=== PATIENT | female | born 1950 | race Caucasian/White ===

== ENCOUNTER 2023-10-29 17:36 | Emergency (ER) | payer MEDICARE, SELFPAY ==
[2023-10-29 17:43] VITALS: BP 154/77; PULSE 85; RESP 18; TEMP 36.7; O2SAT 99; BMI 38.4
--- NOTE | 2023-10-29 18:18 | ED.FEMALEGU1 ---
HPI - Female Genitourinary General Chief complaint: Vaginal Bleeding Time Seen by Provider: 10/29/23 17:47 Source: patient and family Mode of arrival: walk-in Limitations: no limitations History of Present Illness HPI Narrative: patient here for evaluation of bleeding in the vaginal area. She's been feeling fine but she was treated for bronchitis infection and is currently taking doxycycline for cough she comes in today because when she urinated and she wiped there is some blood on the toilet tissue. She did not seen blood in her urine earlier today. She's not had blood in her stool. She has had a hysterectomy previously has not had any vaginal bleeding or gynecological problems since her hysterectomy. She is otherwise healthy is not on any anticoagulants. She doesn't have any back or flank pain. Related Data Allergies Allergy/AdvReac Type Severity Reaction Status Date / Time codeine AdvReac Intermediate Verified 10/29/23 17:42 PFSH PFSH Social History Smoking status: Never smoker Exam Narrative Exam Narrative: awake alert pleasant here with her . Skin is warm dry mucous membranes are moist and pink her vital signs are stable she does not appear pale or anemic. Problem focused examination examination the perineum and the presence of nurse shows on the right volar there is a tiny little skin lesion an ulceration that is slowly bleeding at this time but is clearly the source of the bleeding. The vaginal introitus is normal with no blood no evidence of rectal prolapse. The perirectal area shows no blood in the perirectal area or hemorrhoidal tissue fissures fistula are all negative. Constitutional Vital Signs, click to edit/add: Last Vital Signs Temp 98.1 F 10/29/23 17:43 Pulse 85 10/29/23 17:43 Resp 18 10/29/23 17:43 BP 154/77 H 10/29/23 17:43 Pulse Ox 99 10/29/23 17:43 Course Vital Signs Vital signs: Vital Signs Temperature 98.1 F 10/29/23 17:43 Pulse Rate 85 10/29/23 17:43 Respiratory Rate 18 10/29/23 17:43 Blood Pressure 154/77 H 10/29/23 17:43 Pulse Oximetry 99 10/29/23 17:43 Temperature 98.1 F 10/29/23 17:43 Pulse Rate 85 10/29/23 17:43 Respiratory Rate 18 12/14/23 17:43 Blood Pressure 154/77 H 10/29/23 17:43 Pulse Oximetry 99 10/29/23 17:43 MDM - Female Genitourinary MDM Narrative Medical decision making narrative: a urinalysis will be sent but clearly the source of this bleeding on the tissue is a small skin lesion on the external genitalia vulva area. The bleeding is stopped at this time. She is did not try to touch an irritated area which could precipitate more bleeding. Does not need to be cauterized or coagulated at this time. She should follow up with [facility] if this be an ongoing problem I think this would be self-limited Discharge Plan Discharge Chief Complaint: Vaginal Bleeding Clinical Impression: Vulval lesion Patient Disposition: Home, Self-Care Time of Disposition Decision: 18:30 Additional Instructions: but a soft dressing in his area, try not to Sterba. Follow-up with local gynecology Stand Alone Forms: Portal Instructions Referrals: VINAY MATTA [Primary Care Provider] - 1 week
--- NOTE | 2023-10-29 18:28 | PC.NURSE ---
assisted dr nagy with genital examination
[2023-10-29 18:48] LABS: Bilirubin Urine NEGATIVE (NEGATIVE); Blood Urine MODERATE (NEGATIVE); Clarity Urine CLEAR (CLEAR); Color Urine LT. YELLOW (YELLOW); Glucose Urine UA NEGATIVE (NEGATIVE); Ketones Urine NEGATIVE (NEGATIVE); Leukocyte Esterase Urine NEGATIVE (NEGATIVE); Nitrite Urine NEGATIVE (NEGATIVE); Protein Urine NEGATIVE (NEG/TRACE); Specific Gravity Urine 1.015 (1.005-1.025); Urine Microscopic Indicated YES; Urobilinogen Urine 0.2 EU/dL (0.2-1.0); pH Urine 5.5 (5.0-9.0)
[2023-10-29 18:58] LABS: Bacteria Urine NONE SEEN #/HPF (NONE SEEN); Cast Seen? NONE SEEN #/LPF (NONE SEEN); Crystals Seen? None Seen #/HPF (None Seen); Mucus Urine NONE SEEN (NONE SEEN); RBC Urine 0-2 #/HPF (0-2); Squamous Epithelial Cell Urine FEW #/LPF (NONE/RARE); Urine Culture Indicated NO; WBC Urine 0-2 #/HPF (NONE SEEN)
== END 2023-10-29 18:46 | disposition home or self-care (01) ==
PROVIDERS: Emergency Provider Emergency Medicine Emergency Medical Services; PCP Family Medicine
DX: N90.89 Other specified noninflammatory disorders of vulva and perineum (principal); Z90.710 Acquired absence of both cervix and uterus
CPT/HCPCS: 81001; 99283

== ENCOUNTER 2024-01-04 09:55 | Outpatient (OUT) | payer OTHER, SELFPAY ==
--- OUTSIDE RECORDS SUMMARY | 2024-01-04 10:02 | XMS_ITS | CCD ---
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 Role Phone Vinay Matta Primary Care Provider Bunting, Vinay Attending Provider VINAY MATTA R Primary Care Physician Bunting, DO Vinay Primary Care Provider Bunting, DO Vinay Attending Provider Bunting, DO Vinay Referring Provider Self, Referral Attending Provider Unavailable Bunting, DO Vinay Primary Care Provider Bunting, DO Vinay Attending Provider [phone] TROY Yusuf Emergency Provider TROY Yusuf Attending Provider [phone] [facility] Primary [facility] Provider [facility] Primary Care Provider Bunting, DO Vinay Primary Care Provider [phone] TROY Yusuf Emergency Provider TROY Yusuf Attending Provider Bunting, DO Vinay Attending Provider STARR Delcid Attending Provider [phone] Anh Delcid Unavailable Bunting, DO Vinay Primary Care Provider MD Rafael Edouard Attending Provider Bunting, DO Vinay Primary Care Provider MD Rafael Edouard Attending Provider Bunting, DO Mclean Attending Provider MD Lamin Rose Emergency Provider MD Kimberly Arteaga Admit Provider MD Kimberly Arteaga Attending Provider DO Krissy Easton Other Provider [facility] Georgina Attending Provider [phone] BUNTING, DR MCLENA Admitting Unavailable BUNTING, DR MCLEAN Attending Unavailable BUNTING, DR MCLEAN Primary Care Unavailable BUNTING, DR MCLEAN Consulting Unavailable SALAM, GOMEZ Admitting Unavailable SALAM, GOMEZ Attending Unavailable BUNTING, DR MCLEAN Primary Care Unavailable SALAM, GOMEZ Consulting Unavailable BUNTING, DR MCLEAN Admitting Unavailable BUNTING, DR MCLEAN Attending Unavailable BUNTING, DR MCLEAN Primary Care Unavailable BUNTING, DR MCLEAN Consulting Unavailable BUNTING, DR MCLEAN Admitting Unavailable BUNTING, DR MCLEAN Attending Unavailable BUNTING, DR MCLEAN Primary Care Unavailable SALAM, GOMEZ Admitting Unavailable SALAM, GOMEZ Attending Unavailable BUNTING, DR MCLEAN Primary Care Unavailable SALAM, GOMEZ Consulting Unavailable MISC, DR BERGER Admitting Unavailable MISC, DR BERGER Attending Unavailable BUNTING, DR MCLEAN Primary Care Unavailable MISC, DR BERGER Consulting Unavailable Bunting, DO Mclean Primary Care Provider [phone] Bunting, DO Mclean Attending Provider [phone] Bunting, DO Mclean Primary Care Provider Bunting, DO Mclean Attending Provider [phone] STARR Delcid Attending Provider ABHYANKAR, BELKIS Referring Unavailable RUTH, NISA Primary Care Unavailable DAKSHA BRIDGES Attending Unavailable ABHYANKAR, BELKIS Referring Unavailable RUTH, NISA Primary Care Unavailable ABHYANKAR, BELKIS Referring Unavailable RUTH, NISA Primary Care Unavailable DAKSHA BRIDGES Attending Unavailable ABHYANKAR, BELKIS Referring Unavailable RUTH, NISA Primary Care Unavailable DAKSHA BRIDGES Attending Unavailable RUTH, NISA Primary Care Unavailable RUTH, NISA Primary Care Unavailable CYRUSDAKSHA Attending Unavailable RUTH, NISA Primary Care Unavailable RUTH, NISA Primary Care Unavailable SIRI WALKERRA Referring Unavailable RUTH, NISA Primary Care Unavailable RUTH, NISA Primary Care Unavailable ABHYANKAR, BELKIS Referring Unavailable CYRUSDAKSHA M Attending Unavailable ABHYANKAR, BELKIS Referring Unavailable RUTH, NISA Primary Care Unavailable Ruth, Nisa A Attending Unavailable SALAM, Gomez Attending Unavailable SALAM, Gomez Admitting Unavailable NONE, XXXX Referring Unavailable Ruth, Nisa A Referring Unavailable Ruth, Nisa A Attending Unavailable Ruth, Nisa A Admitting Unavailable Ruth, Nisa A Referring Unavailable Ruth, Nisa A Attending Unavailable Ruth, Nisa A Admitting Unavailable Ruth, Nisa A Attending Unavailable SALAM, Gomez Attending Unavailable Bunting, Vinay Attending Unavailable Bunting, Vinay Admitting Unavailable Bunting, Vinay Primary Care Unavailable Bunting, Vinay Primary Care Unavailable Windnagel, Georgina Admitting Unavailable Windnagel, Georgina Attending Unavailable Bunting, Vinay Consulting Unavailable Hill, Trudy C Admitting Unavailable Hill, Trudy C Attending Unavailable Bunting, Vinay Referring Unavailable Bunting, Vinay Primary Care Unavailable Bunting, Vinay Primary Care Unavailable Edouard, Rafael Attending Unavailable Eduoard, Rafael Admitting Unavailable Arteaga, Kimberly Admitting Unavailable Arteaga, Kimberly Attending Unavailable Bunting, Vinay Primary Care Unavailable Krissy Easton Consulting Unavailable Bunting, Vinay Primary Care Unavailable Bunting, Vinay Attending Unavailable Bunting, Vinay Admitting Unavailable Bunting, Vinay Primary Care Unavailable Delcid, Anh Admitting Unavailable Delcid, Anh Attending Unavailable Unavailable Unavailable Unavailable Allergies Allergy Classification Reported Allergen(s) Allergy Type Date of Onset Reaction(s) Facility (20 sources) Acetaminophen / Codeine; Translations: [acetaminophen-co deine] Drug Allergy 2 Upset stomach (finding), Other: See Comments [facility] Comment on above: pt states she is unw illing to try even plain tylenol after this experience even though she states she took tylenol prior to this and had no problems (20 sources) Codeine; Translations: [codeine] Drug Allergy 7 Other: See Comments [facility] (3 sources) Acetaminophen / Codeine; Translations: [Tylenol with Codeine #3] Drug Allergy Unknown [facility] Repository (1 source) traMADol Drug Allergy [facility] (1 source) Acetaminophen / Codeine; Translations: [ACETAMINOPHEN-CO DEINE] Drug Allergy 2 [facility] Repository (1 source) Acetaminophen Drug Allergy 3 [facility] Repository Medications Current Medications Medication Drug Class(es) Dates Sig (Normalized) Sig (Original) allopurinol 100 mg oral tablet (20 sources) Xanthine Oxidase Inhibitor Start: 01-21-2022 take 1 tablet by mouth twice daily allopurinol 100 mg Tab 100 mg = 1 tab(s), Oral, BID, # 60 tab(s), Refills(s) 0, Pharmacy: [id number], 165, cm, 01/19/22 22:12:00 EST, Height/Length Dosing, 90, kg, 01/19/22 22:12:00 EST, Weight Dosing Start Date: 01/21/22 Status: Ordered take 1 tablet by mouth once elizabeth y allopurinol (ZYLOPRIM) 100 mg tablet Take 100 mg by mouth once daily. 0 Active Comment on above: Take 100 mg by mouth once daily. ascorbic acid 500 mg oral tablet (15 sources) Vitamin C Start: 01-20-2022 take 1 tablet by mouth once daily ascorbic acid 500 mg Tab 500 mg = 1 tab(s), Oral, Daily, Prophylaxis Start Date: 01/20/22 Status: Ordered Vitamin C Active aspirin 81 mg delayed release oral tablet (20 sources) Platelet Aggregation Inhibitor, Nonsteroidal Anti-inflammatory Drug Start: 01-21-2022 take 1 tablet by mouth once daily aspirin 81 mg Oral EC Tab 81 mg = 1 tab(s), Oral, Daily, # 30 tab(s), Refills(s) 0, Pharmacy: [id number], 165, cm, 01/19/22 22:12:00 EST, Height/Length Dosing, 90, kg, 01/19/22 22:12:00 EST, Weight Dosing Start Date: 01/21/22 Status: Ordered Start: 01-21-2022 take 81 mg by mouth once daily Aspirin Active 81 MG PO Daily March 10, 2023 11:00pm Comment on above: Take 81 mg by mouth once daily. atenolol 50 mg oral tablet (20 sources) beta-Adrenergic Mervat Start: 12-26-2017 take 1 tablet by mouth once daily atenolol 50 mg Tab 50 mg = 1 tab(s), Oral, Daily, # 30 tab(s), Refills(s) 0, Pharmacy: [id number], 165, cm, 01/19/22 22:12:00 EST, Height/Length Dosing, 90, kg, 01/19/22 22:12:00 EST, Weight Dosing Start Date: 01/21/22 Status: Ordered Atenolol Active Comment on above: Take 50 mg by mouth once daily. atorvastatin 20 mg oral tablet (20 sources) HMG-CoA Reductase Inhibitor Start: 8 take 1 tablet by mouth at bedtime atorvastatin 20 mg Tab 20 mg = 1 tab(s), Oral, Bedtime, Refills(s) 0, High cholesterol Start Date: 01/21/22 Status: Ordered Atorvastatin Pedrito cium Active Comment on above: Take 20 mg by mouth once daily. Biotin (2 sources) Biotin Active cephalexin 500 mg oral capsule (13 sources) Cephalosporin Antibacterial Start: take 500 mg by mouth twice daily Cephalexin Active 500 MG PO Twice daily 08 20March 12, 2023 11:00pm Start: 07-22-2022 End: 12-29-2022 take 500 mg by mouth every eight hours Cephalexin Discontinued 500 MG PO Q8H 05 06July 21, 2022 11:00pm December 29, 2022 1:20pm cholecalciferol 0.025 mg oral tablet (20 sources) Vitamin D Start: 01-20-2022 take 1 tablet by mouth once daily cholecalciferol 1000 intl units oral tablet 25 mcg = 1 tab(s), Oral, Daily, Prophylaxis Start Date: 01/20/22 Status: Ordered Start: 01-20-2022 take 1 tablet by oleg once daily cholecalciferol 1000 intl units oral tablet 25 mcg = 1 tab(s), Oral, Daily Start Date: 01/20/22 Status: Ordered Comment on above: Take 1,000 Units by mouth once daily. ergocalciferol 0.2 mg/ml oral solution (4 sources) Provitamin D2 Compound Start: 03-11-20 take 200 ug by mouth once daily Ergocalciferol (Vitamin D2) Active 200 MCG PO Daily March 10, 2023 11:00pm furosemide 20 mg oral tablet (20 sources) Loop Diuretic Start: 09-02-20 furosemide 20 mg Tab Refills(s) 0 Start Date: 09/19/22 Status: Ordered Comment on above: Take 20 mg by mouth once daily. gabapentin 300 mg oral capsule (20 sources) Anti-epileptic Agent Start: 01-22-20 take 3 capsules by mouth at bedtime gabapentin 300 mg Cap 900 mg = 3 cap(s), Oral, Bedtime, Refills(s) 0, Neuropathy Start Date: 01/21/22 Status: Ordered Start: 12-26-2017 take 900 mg by mouth at bedtim e Gabapentin Active 900 MG PO Bedtime December 26, 2017 12:00am Start: 12-26-2017 take 300 mg by mouth three times daily Gabapentin Active 300 MG PO Three times daily December 26, 2017 12:00am take 1 capsule by mo ut once daily at bedtime gabapentin (NEURONTIN) 300 mg capsule Take 300 mg by mouth daily at bedtime. 0 Active Gabapentin Activ e Comment on above: Take 300 mg by mouth daily at bedtime. glimepiride 2 mg oral tablet (20 sources) Sulfonylurea Start: 8 take 1 tablet by mouth twice daily glimepiride 2 mg Tab 2 mg = 1 tab(s), Oral, BID, Refills(s) 0, Blood glucose Start Date: 01/20/22 Status: Ordered Start: 12-26-2017 take 2 mg by mouth o nce daily in the morning Glimepiride Active 2 MG PO Every morning December 26, 2017 12:00am Glimepiride Acti ve Comment on above: Take 2 mg by mouth d aily with breakfast. hydroCHLOROthiazide 12.5 mg / lisinopril 20 mg oral tablet (20 sources) Thiazide Diuretic, Angiotensin Converting Enzyme Inhibitor Start: 12-26-2017 hydrochlorothiazide -lisinopril 12.5 mg-20 mg Tab 1 tab(s), Oral, Daily, 30 tab(s), Refill(s) 0, [id number], 165, cm, 01/19/22 22:12:00 EST, Height/Length Dosing, 90, kg, 01/19/22 22:12:00 EST, Weight Dosing Start Date: 01/21/22 Status: Ordered take 10-12.5 mg by mouth once li sinopril-hydroCHLOROthiazide (PRINZIDE,ZESTORETIC) 10-12.5 mg per tablet Take 1 tablet by mouth once daily. 0 Active Lisinopril-hydro CHLOROthiazide Active Comment on above: Take 1 tablet by oleg th once daily. metFORMIN hydrochloride 1000 mg oral tablet (20 sources) Biguanide Start: 12-26-2017 metformin 1000 mg oral tablet 1,000 mg = 1 tab(s), Oral, BIDWM, Blood glucose Start Date: 01/20/22 Status: Ordered take 1000 mg by mouth once daily metformin HCl (METFORMIN ORAL) Take 1,000 mg by mouth once daily. 0 Active metFORMIN HCl Ac tive Comment on above: Take 1,000 mg by oleg th once daily. omeprazole 20 mg delayed release oral capsule (20 sources) Proton Pump Inhibitor Start: 09-19-2022 omeprazole 20 mg Cap-DR Refills(s) 0 Start Date: 09/19/22 Status: Ordered Start: 12-26-2017 take 1 tablet by oleg th once daily Omeprazole Magnesium (Prilosec Otc) 20 mg Tablet,Delayed Release (Dr/Ec) Active 20 MG PO Daily December 26, 2017 12:00am PriLOSEC Active Comment on above: Take 20 mg by mouth once daily. Omeprazole Magnesium (Prilosec Otc) 20 mg Tablet,Delayed Release (Dr/Ec) (5 sources) Start: 12-26-2017 take 1 tablet by mouth once daily Omeprazole Magnesium (Prilosec Otc) 20 mg Tablet,Delayed Release (Dr/Ec) Active 20 MG PO Daily December 26, 2017 1:00am Start: 12-26-2017 take 1 tablet by oleg th once daily Omeprazole Magnesium (Prilosec Otc) 20 mg Tablet,Delayed Release (Dr/Ec) Active 20 MG PO Daily December 26, 2017 12:00am (2 sources) Active rOPINIRole 2 mg oral tablet (20 sources) Nonergot Dopamine Agonist Start: 12-29-2022 take 2 mg by mouth once daily at bedtime Ropinirole Active 2 MG PO Daily at bedtime December 29, 2022 12:00am Start: 01-21-2022 take [address] [facility] at bedtime ropinirole 0.5 mg Tab 1 mg = 2 tab(s), Oral, Bedtime, Refills(s) 0, Other (see comment) Start Date: 01/21/22 Status: Ordered take 1 tablet by oleg twice daily rOPINIRole (REQUIP) 0.5 mg tablet Take 0.5 mg by mouth twice daily. 0 Active take 1 tablet by oleg once daily at bedtime rOPINIRole (REQUIP) 0.5 mg tablet Take 0.5 mg by mouth daily at bedtime. 0 Active Comment on above: Take 0.5 mg by mouth daily at bedtime. Take 0.5 mg by mouth twice daily. SITagliptin 50 mg oral tablet (3 sources) Dipeptidyl Peptidase 4 Inhibitor Start: 12-07-2023 Januvia 50 mg Tab Refills(s) 0 Start Date: 12/07/23 Status: Ordered Start: 09-15-2023 take 1 tablet by mouth once JA JUDI 50 mg tablet Take 1 tablet by mouth every afternoon. 0 09/15/2023 Active Januvia 50 MG as directed Orally Active Comment on above: Take 1 tablet by oleg every afternoon. vitamin B12 (11 sources) Vitamin B12 Start: 04-15-2023 Vitamin B12 Refills(s) 0 Start Date: 04/15/23 Status: Ordered Start: 03-13-2023 take 1 tablet by oleg once daily Cyanocobalamin (Vitamin B-12) (Vitamin B-12) 1,000 mcg Tablet Active 1000 MCG PO Daily March 12, 2023 11:00pm Start: 03-11-2023 End: 03-13-2023 take 1 tablet by mouth once daily Cyanocobalamin (Vitamin B-12) (Vitamin B-12) 50 mcg Tablet Discontinued 50 MCG PO Daily March 10, 2023 11:00pm March 13, 2023 8:52am Vitamin D3 (2 sources) Vitamin D3 Activ e Completed/Discontinued Medications Medication Drug Class(es) Dates Sig (Normalized) Sig (Original) [id number] 200 actuat albuterol 0.09 mg/actuat metered dose inhaler (12 sources) beta2-Adrenergic Agonist Start: 10-12-2023 take 2 puff(s) by mouth every four hours as needed for cough albuterol HFA (PROVENTIL HFA, VENTOLIN HFA) 90 mcg/actuation inhaler INHALE 2 PUFFS BY MOUTH EVERY 4 HOURS NEEDED FOR COUGH 0 10/12/2023 Active Start: 12-26-2017 take 1 puff(s) by in halation every four to six hours Albuterol Sulfate Active 1 PUFF INHALATION EVERY 4-6 HOURS December 26, 2017 2:57pm Start: 12-26-2017 End: 03-11-2023 take 1 puff(s) by inhalation every four to six hours Albuterol Sulfate Discontinued 1 PUFF INHALATION EVERY 4-6 HOURS December 26, 2017 12:00am March 11, 2023 4:40pm Start: 12-26-2017 End: 03-11-2023 take 1 puff(s) by inhalation every four to six hours Albuterol Sulfate Discontinued 1 PUFF INHALATION EVERY 4-6 HOURS December 26, 2017 1:00am March 11, 2023 5:40pm Start: 12-26-2017 take 1 puff(s) by in halation every four to six hours Albuterol Sulfate Active 1 PUFF INHALATION EVERY 4-6 HOURS December 26, 2017 12:00am Start: 12-26-2017 take 1 puff(s) by in halation every four to six hours Albuterol Sulfate Active 1 PUFF INHALATION EVERY 4-6 HOURS December 26, 2017 12:00am Comment on above: INHALE 2 PUFFS BY MO UTH EVERY 4 HOURS NEEDED FOR COUGH amoxicillin 875 mg / clavulanate 125 mg oral tablet (2 sources) Penicillin-class Antibacterial Start: 8 take 1 tablet by mouth every twelve hours Amoxicillin-Pot Clavulanate 875-125 MG 1 tablet Orally every 12 hrs for 10 day(s) Feb, Not-Taking ASCORBIC ACID, VITAMIN C, ORAL (20 sources) take 500 mg by mouth once daily ASCORBIC ACID, VITAMIN C, ORAL Take 500 mg by mouth once daily. 0 Active Comment on above: Take 500 mg by mouth once daily. benzonatate 200 mg oral capsule (11 sources) Non-narcotic Antitussive Start: 8 End: 3 take 200 mg by mouth twice daily Benzonatate Discontinued 200 MG PO Twice daily December 26, 2017 12:00am December 29, 2022 1:19pm calcium carbonate 250 mg / magnesium carbonate 300 mg oral tablet (9 sources) Start: 3 Calcium Carb-Magnesium Carb 250-300 mg tab Take by mouth. 0 02/04/2023 Active Start: 02-04-2023 MagneBind 300 oral tablet 1 tab(s), Oral, Daily, 150 tab(s), Refill(s) 0, [facility], 160, cm, 12/24/22 10:14:00 EST, Height/Length Dosing, 97.2, kg, 12/24/22 10:14:00 EST, Weight Dosing Start Date: 02/04/23 Status: Ordered Comment on above: Take by mouth. cefdinir 300 mg oral capsule (13 sources) Cephalosporin Antibacterial Start: 8 End: 3 take 300 mg by mouth every twelve hours Cefdinir Discontinued 300 MG PO Q12H December 26, 2017 12:00am December 29, 2022 1:20pm Cefdinir Not-Korey ing codeine phosphate 2 mg/ml / promethazine hydrochloride 1.25 mg/ml oral solution (11 sources) Opioid Agonist, Phenothiazine Start: 12-26-2017 End: 12-29-2022 take 1 mL by mouth every four hours Promethazine-Codeine Discontinued 5 ML PO Q4H 120 December 26, 2017 12:00am December 29, 2022 1:21pm diclofenac sodium 75 mg delayed release oral tablet (20 sources) Nonsteroidal Anti-inflammatory Drug Start: 12-29-2022 End: 03-13-2023 take 75 mg by mouth twice daily Diclofenac Sodium Discontinued 75 MG PO Twice daily December 29, 2022 12:00am March 13, 2023 8:47am Start: 04-23-2022 take 1 tablet by oleg th once daily diclofenac sodium 75 mg Oral EC Tab 75 mg = 1 tab(s), Oral, Daily, Refills(s) 0, Pain Start Date: 04/23/22 Status: Ordered Start: 04-23-2022 diclofenac sod ium 75 mg Oral EC Tab Refills(s) 0 Start Date: 04/23/22 Status: Ordered Comment on above: Take 75 mg by mouth once daily. doxycycline monohydrate 100 mg oral capsule (11 sources) Tetracycline-class Drug Start: 8 End: 3 take 100 mg by mouth twice daily Doxycycline Monohydrate Discontinued 100 MG PO Twice daily December 26, 2017 12:00am December 29, 2022 1:20pm ferrous sulfate 325 mg oral tablet (3 sources) End: 3 ferrous sulfate 325 mg (65 mg iron) tablet Take 325 mg by mouth. 0 07/24/2023 Discontinued Comment on above: Take 325 mg by mouth . fluticasone propionate 0.05 mg/actuat metered dose nasal spray (13 sources) Corticosteroid Start: 8 take 1 spray(s) nasal route once daily Fluticasone Propionate 50 MCG/ACT 1 spray in each nostril Nasally Once a day for 21 days Feb, Not-Taking Start: 12-26-2017 End: 12-29-2022 Fluticasone Propionate Disco ntinued 1 SPRAY INTRANASAL Daily December 26, 2017 12:00am December 29, 2022 1:20pm Honey (Medihoney (Honey)) 10 0 % paste (5 sources) Start: 12-29-2022 End: 03-11-2023 Honey (Medihoney (Honey)) 10 0 % paste Discontinued 1 APPLIC TOPICAL Twice daily December 29, 2022 12:00am March 11, 2023 4:44pm Start: 12-29-2022 End: 03-11-2023 Honey (Medihoney (Honey)) 10 0 % paste Discontinued 1 APPLIC TOPICAL Twice daily December 29, 2022 1:00am March 11, 2023 5:44pm Start: 12-29-2022 Honey (Medihon ey (Honey)) 100 % paste Active 1 APPLIC TOPICAL Twice daily December 29, 2022 12:00am Magnesium Oxide (8 sources) Start: 02-03-2023 take 1 tablet by oleg th once daily MAGNESIUM OXIDE ORAL Take 1 tablet by mouth once daily. 0 02/03/2023 Active Start: 02-03-2023 take 1 tablet by oleg th twice daily magnesium oxide (MAG-OX) 400 mg (241.3 mg magnesium) tablet Take 1 tablet by mouth twice daily. 0 02/03/2023 Active Comment on above: Take 1 tablet by oleg th twice daily. Take 1 tablet by oleg th once daily. JEN ADAN, 100 % pste (10 sources) Start: 12-01-2022 JEN ADAN, 100 % pste APPLY A THIN LAYER TWICE DAILY 0 12/01/2022 Active Comment on above: APPLY A THIN LAYER T WICE DAILY predniSONE 20 mg oral tablet (1 source) Start: 10-20-2023 take 2 tablets by mouth once daily, then take 1 tablet by mouth once daily, then take 0.5 tablet by mouth once daily predniSONE (DELTASONE) 20 mg tablet TAKE 2 TABLETS BY MOUTH DAILY FOR 2 DAYS THEN TAKE 1 TABLET BY MOUTH DAILY FOR 2 DAYS THEN TAKE ONE-HALF TABLET BY MOUTH DAILY FOR 2 DAYS 0 10/20/2023 Active Comment on above: TAKE 2 TABLETS BY MO UTH DAILY FOR 2 DAYS THEN TAKE 1 TABLET BY MOUTH DAILY FOR 2 DAYS THEN TAKE ONE-HALF TABLET BY MOUTH DAILY FOR 2 DAYS Vitamin D (2 sources) Vitamin D Not-Ta celine Problems Active Problems Problem Classification Problem Date Documented Da te Episodic/Chronic Acute and unspecified renal failure (10 sources) Injury of kidney; Translations: [Acute kidney failure, unspecified] Onset: 3 07-22-2022 Episodic Acute bronchitis (11 sources) Acute bronchitis; Translations: [Acute bronchitis, unspecified] 12-26-2017 Episodic Anal and rectal conditions (6 sources) Rectal polyp 09-19-2022 Episodic Chronic kidney disease (8 sources) Chronic kidney disease stage 3; Translations: [Stage 3 chronic kidney disease] 03-11-2023 Chronic Chronic kidney disease (2 sources) Chronic kidney disease; Translations: [Chronic kidney disease, stage 3 unspecified] Onset: 3 Chronic ulcer of skin (1 source) Non-pressure chronic ulcer of skin of other sites with unspecified severity; Translations: [Non-pressure chronic ulcer of skin of other sites with unspecified severity] Onset: 3 Chronic Deficiency and other anemia (2 sources) Anemia due to chronic blood loss; Translations: [Iron deficiency anemia secondary to blood loss (chronic)] Onset: 2 Chronic Deficiency and other anemia (9 sources) Anemia due to blood loss 04-23-2022 Chronic Deficiency and other anemia (20 sources) Iron deficiency anemia due to blood loss; Translations: [Iron deficiency anemia secondary to blood loss (chronic)] Onset: 2 Chronic Deficiency and other anemia (4 sources) Iron deficiency anemia secondary to blood loss (chronic); Translations: [IRON DEFIC ANEMIA SEC BLD LOSS CHRN] Onset: 2 Chronic Deficiency and other anemia (14 sources) Anemia; Translations: [Anemia, unspecified] Onset: 2 04-23-2022 Episodic Deficiency and other anemia (5 sources) Iron deficiency anemia secondary to inadequate dietary iron intake; Translations: [Other iron deficiency anemias] Episodic Diabetes mellitus with complications (4 sources) Type 2 diabetes mellitus with diabetic chronic kidney disease; Translations: [TYPE 2 DM W/DIABETIC CKD] Onset: 3 Chronic Diabetes mellitus without complication (20 sources) Type 2 diabetes mellitus without complication; Translations: [Type 2 diabetes mellitus without complications] Onset: 2 Chronic Disorders of lipid metabolism (19 sources) Hyperlipidemia; Translations: [Hyperlipidemia, unspecified] Onset: 2 01-21-2022 Chronic Diverticulosis and diverticulitis (6 sources) Diverticular disease 09-19-2022 Chronic Esophageal disorders (15 sources) Gastroesophageal reflux disease without esophagitis; Translations: [Gastro-esophageal reflux disease without esophagitis] Onset: 2 Chronic Essential hypertension (2 sources) Essential hypertension; Translations: [Essential (primary) hypertension] Chronic Hemorrhoids (6 sources) Hemorrhoids 09-19-2022 Episodic Hypertension with complications and secondary hypertension (8 sources) Hypertensive urgency ; Translations: [Hypertensive urgency] Onset: 3 03-11-2023 Chronic Nausea and vomiting (6 sources) Nausea; Translations: [Nausea] Onset: 3 Episodic Nutritional deficiencies (6 sources) Vitamin B deficiency; Translations: [Deficiency of other specified B group vitamins] Onset: 3 Episodic Other and unspecified benign neoplasm (6 sources) Gastric polyp 09-19-2022 Episodic Other and unspecified benign neoplasm (5 sources) History of polyp of colon 12-24-2022 Episodic Other gastrointestinal disorders (2 sources) H/O: gastrointestinal disease; Translations: [Personal history of other diseases of the digestive system] Onset: 3 Episodic Other hereditary and degenerative nervous system conditions (11 sources) Restless legs; Translations: [Restless legs syndrome] Onset: 2 04-23-2022 Chronic Other hereditary and degenerative nervous system conditions (2 sources) Restless legs syndrome Chronic Other liver diseases (5 sources) Steatosis of liver; Translations: [Fatty (change of) liver, not elsewhere classified] Onset: 3 Chronic Other liver diseases (1 source) Enzyme level - finding; Translations: [Abnormal levels of other serum enzymes] Onset: 3 Episodic Other liver diseases (5 sources) Alkaline phosphatase raised 12-24-2022 Episodic Other nervous system disorders (9 sources) Polyneuropathy Onset: 2 04-23-2022 Chronic Other nervous system disorders (4 sources) Paresthesia of hand ; Translations: [Paresthesia of skin] 03-11-2023 Episodic Other nervous system disorders (2 sources) Slurred speech; Translations: [Other speech disturbance] 03-13-2023 Episodic Other nutritional; endocrine; and metabolic disorders (4 sources) Obese class II; Translations: [Body mass index (BMI) 36.0-36.9, adult] Chronic Other nutritional; endocrine; and metabolic disorders (2 sources) Body mass index 40+ - severely obese; Translations: [Body mass index (BMI) 45.0-49.9, adult] Chronic Other nutritional; endocrine; and metabolic disorders (2 sources) Body mass index (BMI) 36.0-36.9, adult Chronic Other nutritional; endocrine; and metabolic disorders (3 sources) Hypomagnesemia 04-15-2023 Chronic Other screening for suspected conditions (not mental disorders or infectious disease) (5 sources) Abnormal level of blood mineral; Translations: [Abnormal level of blood mineral] Onset: 3 Episodic Other upper respiratory disease (2 sources) Nasal congestion Episodic Pulmonary heart disease (1 source) Pulmonary hypertension, unspecified; Translations: [PULMONARY HYPERTENSION UNSPECIFIED] Onset: 2 Chronic Residual codes; unclassified (2 sources) Obstructive sleep apnea syndrome; Translations: [Obstructive sleep apnea (adult) (pediatric)] Chronic Residual codes; unclassified (2 sources) Obstructive sleep apnea (adult) (pediatric) Chronic Residual codes; unclassified (1 source) Obstructive sleep apnea (adult)(pediatric); Translations: [Obstructive sleep apnea (adult) (pediatric)] Onset: 3 Chronic Spondylosis; intervertebral disc disorders; other back problems (4 sources) Other spondylosis with radiculopathy, lumbar region; Translations: [OTH SPONDYLS RADICULOPATHY LUMB RGN] Onset: 2 Chronic Unclassified (1 source) CHRN KIDNEY DISEASE STG 3 UNSP; Translations: [CHRN KIDNEY DISEASE STG 3 UNSP] Onset: 2 Viral infection (20 sources) Acute viral disease; Translations: [Viral infection, unspecified] 12-26-2017 Episodic Past or Other Problems Problem Classification Problem Date Documented Da te Episodic/Chronic Deficiency and other anemia (1 source) Other iron deficiency anemias; Translations: [Other iron deficiency anemias] Onset: 01-16-2023 Episodic Diabetes mellitus without complication (1 source) Impaired fasting glucose; Translations: [IMPAIRED FASTING GLUCOSE] Onset: 09-10-2022 Episodic Other aftercare (1 source) Other fpc (current) drug therapy; Translations: [OTH CORRECTION CURRENT DRUG THERAPY] Onset: 09-10-2022 Episodic Other lower respiratory disease (4 sources) Shortness of breath; Translations: [SHORTNESS OF BREATH] Onset: 09-09-2022 Episodic Other nervous system disorders (5 sources) Slurred speech; Translations: [Slurred speech] Onset: 03-11-2023 03-11-2023 Episodic Other nervous system disorders (3 sources) Paresthesia of skin; Translations: [Disturbance of skin sensation] Onset: 03-11-2023 03-13-2023 Episodic Syncope (9 sources) Syncope; Translations: [Syncope and collapse] Onset: 03-11-2023 03-11-2023 Episodic Urinary tract infections (12 sources) Acute urinary tract infection; Translations: [Urinary tract infection, site not specified] Onset: 03-11-2023 07-22-2022 Episodic Results Test Name Value Interpretation Reference Range Facility [facility] 11-05-2023 Lab Reports [id number] Normal [facility] Afshin 10-26-2023 CNPN Telephone (HEMASA) ANH TEJEDA ([id number]) 1950 F Date Time Provider Department 10/26/23 SAMANTHA MCMAHAN HEMYASH During your visit today, we recorded the following information about you: Samantha Mcmahan RN 10/26/2023 9:27 AM Signed ----- Message from Daksha Bridges PA-C sent at 10/26/2023 8:01 AM EST ----- Please call with normal iron levels Samantha Mcmahan RN 10/26/2023 9:27 AM Signed Pt aware of MM message. She denies questions, needs or concerns at this time. Samantha Mcmahan RN Allergies As of Date: 10/26/2023 Noted Allergy Reaction ACETAMINOPHEN-CODEINE 10/01/2022 14 - Other: See Comments Comments: pt states she is unwilling to try even plain tylenol after this experience even though she states she took tylenol prior to this and had no problems TYLENOL #3 (CODEINE) 09/26/2022 14 - Other: See Comments Comments: Upset stomach Date Reviewed: 10/23/2023 Reviewed by: Daksha Bridges PA-C - Fully Assessed Reason for Visit: Results [95] Prescriptions as of 10/26/2023 - JANUVIA 50 mg tablet Take 1 tablet by mouth every afternoon. - predniSONE (DELTASONE) 20 mg tablet TAKE 2 TABLETS BY MOUTH DAILY FOR 2 DAYS THEN TAKE 1 TABLET BY MOUTH DAILY FOR 2 DAYS THEN TAKE ONE-HALF TABLET BY MOUTH DAILY FOR 2 DAYS - albuterol HFA (PROVENTIL HFA, VENTOLIN HFA) 90 mcg/actuation inhaler INHALE 2 PUFFS BY MOUTH EVERY 4 HOURS NEEDED FOR COUGH - Calcium Carb-Magnesium Carb 250-300 mg tab Take by mouth. - MAGNESIUM OXIDE ORAL Take 1 tablet by mouth once daily. - MEDIHONEY, HONEY, 100 % pste APPLY A THIN LAYER TWICE DAILY - allopurinol (ZYLOPRIM) 100 mg tablet Take 100 mg by mouth once daily. - ASCORBIC ACID, VITAMIN C, ORAL Take 500 mg by mouth once daily. - aspirin (ASPIR-81 ORAL) Take 81 mg by mouth once daily. - atenolol (TENORMIN) 50 mg tablet Take 50 mg by mouth once daily. - atorvastatin (LIPITOR) 20 mg tablet Take 20 mg by mouth once daily. - cholecalciferol (VITAMIN D3) 1,000 unit tab tablet Take 1,000 Units by mouth once daily. - diclofenac, EC, (VOLTAREN) 75 mg EC tablet Take 75 mg by mouth once daily. - furosemide (LASIX) 20 mg tablet Take 20 mg by mouth once daily. - gabapentin (NEURONTIN) 300 mg capsule Take 300 mg by mouth daily at bedtime. - lisinopril-hydroCHLOROthiaz jennifer (PRINZIDE,ZESTORETIC) 10-12.5 mg per tablet Take 1 tablet by mouth once daily. - glimepiride (AMARYL) 2 mg tablet Take 2 mg by mouth daily with breakfast. - metformin HCl (METFORMIN ORAL) Take 1,000 mg by mouth once daily. - omeprazole (PRILOSEC) 20 mg capsule Take 20 mg by mouth once daily. - rOPINIRole (REQUIP) 0.5 mg tablet Take 0.5 mg by mouth twice daily. Problem List As Of Date 10/26/2023 Noted Resolved Iron deficiency anemia due to chronic blood los*10/03/2022 Encounter Status:Closed by SAMANTHA MCMAHAN on 10/26/23 Normal [facility] CBC W Auto Differential pane l (Bld)on 10-23-2023 Basophils (Bld) [#/Vol] 0.03 10*3/uL Normal <0.11 [facility] Comment on above: Order Comment: Speci men Type: BLOOD SPECIMEN Ordering Facility: [facility] Address: [address] [place] [id number] Performed By: #### 5 0190-8, 2276-4 #### [facility] CLIA [id number] [address] [facility] [address] [place] Basophils/100 WBC (Bld) 0.3 % Normal [facility] Comment on above: Order Comment: Speci men Type: BLOOD SPECIMEN Ordering Facility: [facility] Address: [address] [place] [address] Performed By: #### 5 0190-8, 2276-02 #### [facility] CLIA [id number] [address] [place] [address] [place] Differential cell count method Nom (Bld) Auto Normal [facility] Comment on above: Order Comment: Speci men Type: BLOOD SPECIMEN Ordering Facility: [facility] Address: [address] [place] [address] Performed By: #### 5 0190-8, 2276-02 #### [facility] CLIA [id number] [address] [place] [address] [place] Eosinophils (Bld) [#/Vol] 0.03 10*3/uL Normal <0.46 [facility] Comment on above: Order Comment: Speci men Type: BLOOD SPECIMEN Ordering Facility: [facility] Address: [address] [place] [address] Performed By: #### 5 0190-8, 2276-02 #### [facility] CLIA [id number] [address] [place] [address] [place] Eosinophils/100 WBC (Bld) 0.3 % Normal [facility] Comment on above: Order Comment: Speci men Type: BLOOD SPECIMEN Ordering Facility: [facility] Address: [address] Performed By: #### 5 0190-8, 2276-02 #### [facility] CLIA [id number] [address] [place] [address] [place] Erythrocyte distribution width (RBC) [Ratio] 16.0 % High 11.5-15.0 [facility] Comment on above: Order Comment: Speci men Type: BLOOD SPECIMEN Ordering Facility: [facility] Address: [address] [place] [address] Performed By: #### 5 0190-8, 2275- #### [facility] CLIA [id number] [address] [place] [address] [place] Hematocrit (Bld) [Volume fraction] 32.5 % Low 36.0-46.0 [facility] Comment on above: Order Comment: Speci men Type: BLOOD SPECIMEN Ordering Facility: [facility] Address: [address] Performed By: #### 5 0190-8, 2276-02 #### [facility] CLIA [id number] [address] [place] [address] [place] Hemoglobin (Bld) [Mass/Vol] 10.7 g/dL Low 11.5-15.5 [facility] Comment on above: Order Comment: Speci men Type: BLOOD SPECIMEN Ordering Facility: [facility] Address: [address] Performed By: #### 5 0190-8, 2276-02 #### [facility] CLIA [id number] [address] [place] [address] [place] Immature granulocytes (Bld) [#/Vol] 0.13 10*3/uL High <0.10 [facility] Comment on above: Order Comment: Speci men Type: BLOOD SPECIMEN Ordering Facility: [facility] Address: [address] [place] [address] Performed By: #### 5 0190-8, 2276-02 #### [facility] CLIA [id number] [address] [place] [address] [place] Immature granulocytes/100 WBC (Bld) 1.2 % Normal [facility] Comment on above: Order Comment: Speci men Type: BLOOD SPECIMEN Ordering Facility: [facility] Address: [address] Performed By: #### 5 0190-8, 2275- #### [facility] CLIA [id number] [address] [place] [address] [place] Lymphocytes (Bld) [#/Vol] 1.31 10*3/uL Normal 1.00-4.00 [facility] Comment on above: Order Comment: Speci men Type: BLOOD SPECIMEN Ordering Facility: [facility] Address: [address] [place] [address] Performed By: #### 5 0190-8, 2275- #### [facility] CLIA [id number] [address] [place] [address] [place] Lymphocytes/100 WBC (Bld) 12.1 % Normal [facility] Comment on above: Order Comment: Speci men Type: BLOOD SPECIMEN Ordering Facility: [facility] Address: [address] [place] [address] Performed By: #### 5 0190-8, 2276-02 #### [facility] CLIA [id number] [address] [place] [address] [place] MCH (RBC) [Entitic mass] 28.2 pg Normal 26.0-34.0 [facility] Comment on above: Order Comment: Speci men Type: BLOOD SPECIMEN Ordering Facility: [facility] Address: [address] [place] [address] Performed By: #### 5 0190-8, 2276-02 #### [facility] CLIA [id number] [address] [place] [address] [place] MCHC (RBC) [Mass/Vol] 32.9 g/dL Normal 30.5-36.0 [facility] Comment on above: Order Comment: Speci men Type: BLOOD SPECIMEN Ordering Facility: [facility] Address: [address] [place] [address] Performed By: #### 5 0190-8, 2275- #### [facility] CLIA [id number] [address] [place] [address] [place] MCV (RBC) [Entitic vol] 85.8 fL Normal 80.0-100.0 [facility] Comment on above: Order Comment: Speci men Type: BLOOD SPECIMEN Ordering Facility: [facility] Address: [address] [place] [address] Performed By: #### 5 0190-8, 2275-4 #### [facility] CLIA [id number] [address] [place] [address] [place] Monocytes (Bld) [#/Vol] 0.37 10*3/uL Normal <0.87 [facility] Comment on above: Order Comment: Speci men Type: BLOOD SPECIMEN Ordering Facility: [facility] Address: [address] [place] [address] Performed By: #### 5 0190-8, 2275-4 #### [facility] CLIA [id number] [address] [place] [address] [place] Monocytes/100 WBC (Bld) 3.4 % Normal [facility] Comment on above: Order Comment: Speci men Type: BLOOD SPECIMEN Ordering Facility: [facility] Address: [address] [place], [place] [address] Performed By: #### 5 0190-8, 2275-4 #### [facility] CLIA [id number] [address] [place] [address] [place] Neutrophils (Bld) [#/Vol] 8.95 10*3/uL High 1.45-7.50 [facility] Comment on above: Order Comment: Speci men Type: BLOOD SPECIMEN Ordering Facility: [facility] Address: [address] [place], [place] [address] Performed By: #### 5 0190-8, 2275-4 #### [facility] CLIA [id number] [address] [place] [address] [place] Neutrophils/100 WBC (Bld) 82.7 % Normal [facility] Comment on above: Order Comment: Speci men Type: BLOOD SPECIMEN Ordering Facility: [facility] Address: [address] Performed By: #### 5 0190-8, 2276-02 #### [facility] CLIA [id number] [address] [place] [address] [place] Nucleated RBC (Bld) [#/Vol] 10*3/uL Normal <0.01 [facility] Comment on above: Order Comment: Speci men Type: BLOOD SPECIMEN Ordering Facility: [facility] Address: [address] Performed By: #### 5 0190-8, 2276-02 #### [facility] CLIA [id number] [address] [place] [address] [place] Nucleated RBC/100 WBC (Bld) [Ratio] 0.0 /100 WBC Normal [facility] Comment on above: Order Comment: Speci men Type: BLOOD SPECIMEN Ordering Facility: [facility] Address: [address] [place], [place] [address] Performed By: #### 5 0190-8, 2276-02 #### [facility] CLIA [id number] [address] [place] [address] [place] Platelet mean volume (Bld) [Entitic vol] 9.0 fL Normal 9.0-12.7 [facility] Comment on above: Order Comment: Speci men Type: BLOOD SPECIMEN Ordering Facility: [facility] Address: [address] [place] [address] Performed By: #### 5 0190-8, 2276-02 #### [facility] CLIA [id number] [address] [place] [address] [place] Platelets (Bld) [#/Vol] 175 10*3/uL Normal 150-400 [facility] Comment on above: Order Comment: Speci men Type: BLOOD SPECIMEN Ordering Facility: [facility] Address: [address] [place] [id number] Performed By: #### 5 0190-8, 2275-4 #### [facility] CLIA [id number] [address] [place] [address] [place] RBC (Bld) [#/Vol] 3.79 10*6/uL Low 3.90-5.20 [facility] Comment on above: Order Comment: Speci men Type: BLOOD SPECIMEN Ordering Facility: [facility] Address: [address] [place] [address] Performed By: #### 5 0190-8, 2275-4 #### [facility] CLIA [id number] [address] [place] [address] [place] WBC (Bld) [#/Vol] 10.82 10*3/uL Normal 3.70-11.00 [facility] Comment on above: Order Comment: Speci men Type: BLOOD SPECIMEN Ordering Facility: [facility] Address: [address] [place] [address] Performed By: #### 5 0190-8, 2275-4 #### [facility] CLIA [id number] [address] [place] [address] [place] CNOVSPon 10-23-2023 CNOVSP Visit (SP) Office ([facility]) ANH TEJEDA ([id number]) 1950 F Date Time Provider Department 10/23/23 2:30 PM DAKSHA BRIDGES During your visit today, we recorded the following information about you: Temperature Pulse Respiration Blood pressure 97.2 degrees 86/minute 16/minute 141/59 Weight Height 96.8 kg 1.58 m Daksha Bridges PA-C 10/23/2023 3:25 PM Signed PATIENT NAME: Anh Tejeda CLINIC NO.: [id number] ATTENDING PHYSICIAN: Delores Walker MD DATE OF SERVICE: May 01, 2023 (Elements copied from my note dated February 06, 2023, have been reviewed and updated where appropriate, and all reflect current assessment and medical decision making during today's encounter, May 01, 2023) CHIEF COMPLAINT: Follow up Diagnosis: NAINA Treatment: Venofer x 3 doses 10/2022 HPI: Anh returns for follow up. She is recovering from an upper respiratory infection. Otherwise she is feeling better. She has been more fatigued which she feels is related to her illness. PCP decided to watch her kidney function. Current Outpatient Medications Medication Sig Calcium Carb-Magnesium Carb 250-300 mg tab Take by mouth. (Patient not taking: Reported on 05/01/2023) MAGNESIUM OXIDE ORAL Take 1 tablet by mouth once daily. MEDIHONEY, HONEY, 100 % pste APPLY A THIN LAYER TWICE DAILY allopurinol (ZYLOPRIM) 100 mg tablet Take 100 mg by mouth once daily. ASCORBIC ACID, VITAMIN C, ORAL Take 500 mg by mouth once daily. aspirin (ASPIR-81 ORAL) Take 81 mg by mouth once daily. atenolol (TENORMIN) 50 mg tablet Take 50 mg by mouth once daily. atorvastatin (LIPITOR) 20 mg tablet Take 20 mg by mouth once daily. cholecalciferol (VITAMIN D3) 1,000 unit tab tablet Take 1,000 Units by mouth once daily. diclofenac, EC, (VOLTAREN) 75 mg EC tablet Take 75 mg by mouth once daily. furosemide (LASIX) 20 mg tablet Take 20 mg by mouth once daily. gabapentin (NEURONTIN) 300 mg capsule Take 300 mg by mouth daily at bedtime. lisinopril-hydroCHLOROthiaz jennifer (PRINZIDE,ZESTORETIC) 10-12.5 mg per tablet Take 1 tablet by mouth once daily. glimepiride (AMARYL) 2 mg tablet Take 2 mg by mouth daily with breakfast. metformin HCl (METFORMIN ORAL) Take 1,000 mg by mouth once daily. omeprazole (PRILOSEC) 20 mg capsule Take 20 mg by mouth once daily. rOPINIRole (REQUIP) 0.5 mg tablet Take 0.5 mg by mouth twice daily. No current facility-administered medications for this visit. ALLERGIES Allergen Reactions Acetaminophen-Codei* Other: See Comments pt states she is unwilling to try even plain tylenol after this experience even though she states she took tylenol prior to this and had no problems Tylenol #3 [Codeine] Other: See Comments Upset stomach PAST MEDICAL HISTORY Diagnosis Date Anemia Benign fundic gland polyps of stomach Carpal tunnel syndrome Chronic back pain Diabetes mellitus (HCC) Diverticulosis GERD (gastroesophageal reflux disease) Hemorrhoids Hyperlipidemia Polyneuropathy Rectal polyp Restless leg syndrome PAST SURGICAL HISTORY Procedure Laterality Date COLONOSCOPY EGD W/O BRSH SPEC VARICIES INJ FAMILY HISTORY Problem Relation Age of Onset other (Congenital heart disease) Mother Lung Cancer Father Social History Tobacco Use Smoking status: Never Passive exposure: Past Smokeless tobacco: Never Substance Use Topics Alcohol use: Never Drug use: Not Currently REVIEW OF SYSTEMS GENERAL: No weight loss, malaise or fevers. No night sweats. +fatigue is stable HEENT: Negative for headaches, No changes in hearing or vision, no nose bleeds or other nasal problems. RESPIRATORY: Negative for cough, wheezing CARDIOVASCULAR: Negative for chest pain, leg swelling and palpitations GI: Negative for abdominal discomfort, blood in stools or black stools and change in bowel habits : Negative for dysuria, frequency and incontinence MUSCULOSKELETAL: Negative for joint pain or swelling, back pain, and muscle pain. SKIN: Negative for lesions, rash, and itching. HEMATOLOGY/LYMPHOLOGY Negative for prolonged bleeding, bruising easily, and swollen nodes. NEURO: Negative for numbness or tingling of hands/feet. No weakness. PHYSICAL EXAMINATION: BP 141/59 Pulse 86 Temp 36.2 ?C (97.2 ?F) (Temporal) Resp 16 Ht 158 cm (5' 2.21 ) Wt 96.8 kg (213 lb 6.4 oz) SpO2 100% BMI 38.77 kg/m? ECOG PERFORMANCE STATUS: 1- Restricted in physically strenuous activity. Carries out light duty. General: Alert and oriented, no distress, pleasant and cooperative. Heart: Regular, normal S1 and S2, no murmurs, rubs, or gallops Lungs: Clear to auscultation bilaterally Abdomen: Benign Extremities: Feet/ankles without edema, posterior tibial pulses full and symmetrical LABS: Glucose (mg/dL) Date Value 10/23/2023 167 Potassium (mmol/L) Date Value 10/23/2023 4.7 Sodium (mmol/L) Date Value (more content not included)... Normal [facility] Comprehensive metabolic 2000 panelon 10-23-2023 Albumin [Mass/Vol] 4.4 g/dL Normal 3.9-4.9 [facility] Comment on above: Order Comment: Speci men Type: BLOOD SPECIMEN Ordering Facility: [facility] Address: [address] Performed By: #### 5 0190-8, 2275-4 #### [facility] CLIA [id number] [address] [place] [address] [place] ALP [Catalytic activity/Vol] 112 U/L Normal 34-123 [facility] Comment on above: Order Comment: Speci men Type: BLOOD SPECIMEN Ordering Facility: [facility] Address: [address] [place], [place] [address] Performed By: #### 5 0190-8, 2275-4 #### [facility] CLIA [id number] [address] [place] [address] [place] ALT [Catalytic activity/Vol] 16 U/L Normal 7-38 [facility] Comment on above: Order Comment: Speci men Type: BLOOD SPECIMEN Ordering Facility: [facility] Address: [address] Performed By: #### 5 0190-8, 2275-4 #### [facility] CLIA [id number] [address] [place] [address] [place] Anion gap [Moles/Vol] 13 mmol/L Normal 9-18 [facility] Comment on above: Order Comment: Speci men Type: BLOOD SPECIMEN Ordering Facility: [facility] Address: [address] Performed By: #### 5 0190-8, 2275-4 #### [facility] CLIA [id number] [address] [place] [address] [place] AST [Catalytic activity/Vol] 20 U/L Normal 13-35 [facility] Comment on above: Order Comment: Speci men Type: BLOOD SPECIMEN Ordering Facility: [facility] Address: [address] [place] [address] Performed By: #### 5 0190-8, 2275-4 #### [facility] CLIA [id number] [address] [place] [address] [place] Bilirubin [Mass/Vol] 0.3 mg/dL Normal 0.2-1.3 [facility] Comment on above: Order Comment: Speci men Type: BLOOD SPECIMEN Ordering Facility: [facility] Address: [address] [place] [address] Performed By: #### 5 0190-8, 2275-4 #### [facility] CLIA [id number] [address] [place] [address] [place] Calcium [Mass/Vol] 9.8 mg/dL Normal 8.5-10.2 [facility] Comment on above: Order Comment: Speci men Type: BLOOD SPECIMEN Ordering Facility: [facility] Address: [address] [place] [address] Performed By: #### 5 0190-8, 2275- #### [facility] CLIA [id number] [address] [place] [address] [place] Chloride [Moles/Vol] 99 mmol/L Normal 97-105 [facility] Comment on above: Order Comment: Speci men Type: BLOOD SPECIMEN Ordering Facility: [facility] Address: [address] [place], [place] [address] Performed By: #### 5 0190-8, 2275- #### [facility] CLIA [id number] [address] [place] [address] [place] CO2 [Moles/Vol] 28 mmol/L Normal 22-30 [facility] Comment on above: Order Comment: Speci men Type: BLOOD SPECIMEN Ordering Facility: [facility] Address: [address] Performed By: #### 5 0190-8, 2276-02 #### [facility] CLIA [id number] [address] [place] [address] [place] Creatinine [Mass/Vol] 1.61 mg/dL High 0.58-0.96 [facility] Comment on above: Order Comment: Speci men Type: BLOOD SPECIMEN Ordering Facility: [facility] Address: [address] Performed By: #### 5 0190-8, 2276-02 #### [facility] CLIA [id number] [address] [place] [address] [place] Creatinine and Glomerular filtration rate.predicted panel (S/P/Bld) 33 mL/min/1.73m??? Low >=60 [facility] Comment on above: Order Comment: Speci men Type: BLOOD SPECIMEN Ordering Facility: [facility] Address: [address] Result Comment: Maru mated Glomerular Filtration Rate (eGFR) is calculated using the 2020 CKD-EPI creatinine equation. This equation utilizes serum creatinine, sex, and age as parameters. The creatinine assay has traceable calibration to isotope dilution-mass spectrometry. Refer to KDIGO guidelines for clinical interpretation. In patients with unstable renal function, e.g. those with acute kidney injury, the eGFR may not accurately reflect actual GFR. Performed By: #### 5 0190-8, 2276-02 #### [facility] CLIA [id number] [address] [place] [address] [place] Glucose [Mass/Vol] 167 mg/dL High 74-99 [facility] Comment on above: Order Comment: Speci men Type: BLOOD SPECIMEN Ordering Facility: [facility] Address: [address] Result Comment: The [place] Diabetes Association (ADA) provides guidance for cutoff values for fasting glucose and random glucose. The ADA defines fasting as no caloric intake for at least 8 hours. Fasting plasma glucose results between 100 to 125 mg/dL indicate increased risk for diabetes (prediabetes). Fasting plasma glucose results greater than or equal to 126 mg/dL meet the criteria for diagnosis of diabetes. In the absence of unequivocal hyperglycemia, results should be confirmed by repeat testing. In a patient with classic symptoms of hyperglycemia or hyperglycemic crisis, random plasma glucose results greater than or equal to 200 mg/dL meet the criteria for diagnosis of diabetes. Reference: Standards of Medical Care in Diabetes 2016, [place] Diabetes Association. Diabetes Care. 2016.39(Suppl 1). Performed By: #### 5 0190-8, 2275-4 #### [facility] CLIA [id number] [address] [place] [address] [place] Potassium [Moles/Vol] 4.7 mmol/L Normal 3.7-5.1 [facility] Comment on above: Order Comment: Speci men Type: BLOOD SPECIMEN Ordering Facility: [facility] Address: [address] [place] [place] [address] Performed By: #### 5 0190-8, 2275-4 #### [facility] CLIA [id number] [address] [place] [address] [place] Protein [Mass/Vol] 7.3 g/dL Normal 6.3-8.0 [facility] Comment on above: Order Comment: Speci men Type: BLOOD SPECIMEN Ordering Facility: [facility] Address: [address] Performed By: #### 5 0190-8, 2275- #### [facility] CLIA [id number] [address] [place] [address] [place] Sodium [Moles/Vol] 140 mmol/L Normal 136-144 [facility] Comment on above: Order Comment: Speci men Type: BLOOD SPECIMEN Ordering Facility: [facility] Address: [address] Performed By: #### 5 0190-8, 2276-02 #### [facility] CLIA [id number] [address] [place] [address] [place] Urea nitrogen [Mass/Vol] 48 mg/dL High 7-21 [facility] Comment on above: Order Comment: Speci men Type: BLOOD SPECIMEN Ordering Facility: [facility] Address: [address] [place], [place] [address] Performed By: #### 5 0190-8, 2276-02 #### [facility] CLIA [id number] [address] [place] [address] [place] [facility]in [facility] Ferritin [Mass/Vol] 120.0 ng/mL Normal 14.7-205.1 [facility] Comment on above: Order Comment: Speci men Type: BLOOD SPECIMEN Ordering Facility: [facility] Address: [address] Performed By: #### 5 0190-8, 2276-02 #### [facility] CLIA [id number] [address] [place] [address] [place] Iron and Iron binding capaci panelon 10-23-2023 Iron [Mass/Vol] 67 ug/dL Normal 41-186 [facility] Comment on above: Order Comment: Speci men Type: BLOOD SPECIMEN Ordering Facility: [facility] Address: [address] [place] [address] Performed By: #### 5 0190-8, 2276-02 #### [facility] CLIA [id number] [address] [place] [address] [place] Iron binding capacity [Mass/Vol] 371 ug/dL Normal 232-386 [facility] Comment on above: Order Comment: Speci men Type: BLOOD SPECIMEN Ordering Facility: [facility] Address: [address] [place] [address] Performed By: #### 5 0190-8, 2276-02 #### [facility] CLIA [id number] [address] [place] [address] [place] Iron/TIBC [Molar ratio] 18.1 % Normal 15.0-57.0 [facility] Comment on above: Order Comment: Speci men Type: BLOOD SPECIMEN Ordering Facility: [facility] Address: [address] [address] Performed By: #### 5 0190-8, 2276-02 #### [facility] CLIA [id number] [address] [place] [address] [place] A1C with Estimated Average G hema 09-05-2023 Glucose [Mass/Vol] 192 mg/dL Normal [facility] Comment on above: Result Comment: PERF ORMED BY: [place] [address] PATHOLOGIST [employer] MACHINE TENDER THERESA MULLER M.D. Performed By: #### L IPID, CMP, A1C [facility], CBC #### [facility] [address] [place] [address] HbA1c (Bld) [Mass fraction] 8.3 % High 4.3-5.6 [facility] Comment on above: Result Comment: Incr eased risk for diabetes: 5.7 - 6.4 diabetes: >6.4 glycemic control for adults with diabetes: <7.0 Performed By: #### L IPID, CMP, A1C [facility] eA, CBC #### [facility] [address] Alanine aminotransferase [En zymatic activity/volume] in Serum or PlasmaOrdered By: Vinay Bunting on 09-05-2023 ALT [Catalytic activity/Vol] 24 U/L 52 [facility] Albumin [Mass/volume] in Ser um or Plasma by Bromocresol green (BCG) dye binding methoOrdered By: Vinay Bunting on 09-05-2023 Albumin BCG dye [Mass/Vol] 4.2 g/dL 3.5-5.7 [facility] Alkaline phosphatase [Enzyma tic activity/volume] in Serum or PlasmaOrdered By: Vinay Bunting on 09-05-2023 ALP [Catalytic activity/Vol] 105 U/L 34-104 [facility] Aspartate aminotransferase [ Enzymatic activity/volume] in Serum or PlasmaOrdered By: Vinay Bunting on 09-05-2023 AST [Catalytic activity/Vol] 24 U/L 13-39 [facility] Basophils Auto (Bld) [#/Vol] Ordered By: Vinay Bunting on 09-05-2023 Basophils (Bld) [#/Vol] 0.0 10*3/uL 0.0-0.2 [facility] Basophils/100 WBC Auto (Bld) Ordered By: Vinay Bunting on 09-05-2023 Basophils/100 WBC (Bld) 0.5 % . [facility] Bilirubin.total [Mass/volume ] in Serum or PlasmaOrdered By: Vinay Bunting on 09-05-2023 Bilirubin [Mass/Vol] 0.5 mg/dL 0.3-1.0 [facility] Calcium [Mass/volume] in Ser um or PlasmaOrdered By: Vinay Bunting on 09-05-2023 Calcium [Mass/Vol] 9.1 mg/dL 8.6-10.3 [facility] Carbon dioxide, total [Moles /volume] in Serum or PlasmaOrdered By: Vinay Bunting on 09-05-2023 CO2 [Moles/Vol] 29.2 mmol/L 21.0-31.0 [facility] Chloride [Moles/volume] in S hilda or PlasmaOrdered By: Vinay Bunting on 09-05-2023 Chloride [Moles/Vol] 103 mmol/L 98-107 [facility] Cholesterol [Mass/volume] in Serum or PlasmaOrdered By: Vinay Bunting on 09-05-2023 Cholesterol [Mass/Vol] 116 mg/dL 140-200 [facility] Comment on above: Chol less than 200 m g/dl low riskChol 201-239 mg/dl borderline riskChol 240 mg/dl and greater high risk Cholesterol in LDL Calc [Mas s/Vol]Ordered By: Vinay Bunting on 09-05-2023 Cholesterol in LDL [Mass/Vol] 55 mg/dL 0-100 [facility] Comment on above: LDL ATP III CLASSIFI CATIONLDL less than 100 mg/dL OptimalLDL 100-129 mg/dL Near or above optimalLDL 130-159 mg/dL Borderline highLDL 160-189 mg/dL HighLDL greater than 189 mg/dL Very high Cholesterol in VLDL Calc [Ma ss/Vol]Ordered By: Vinay Matta on 09-05-2023 Cholesterol in VLDL [Mass/Vol] 18 mg/dL [facility] Complete Blood Count Auto Di ffon 09-05-2023 Basophils (Bld) [#/Vol] 0.0 10*3/uL Normal 0.0-0.2 [facility] Comment on above: Result Comment: PERF ORMED BY: [place] [address] PATHOLOGIST [employer]ACH[employer] TENDER THERESA MULLER M.D. Performed By: #### L IPID, CMP, A1C [facility] eA, CBC #### [facility] [address] [place] [address] [place] Basophils/100 WBC (Bld) 0.5 % Normal . [facility] Comment on above: Performed By: #### L IPID, CMP, A1C [facility] eA, CBC #### [facility] [address] [place] [address] [place] Eosinophils (Bld) [#/Vol] 0.1 10*3/uL Normal 0.0-0.45 [facility] Comment on above: Performed By: #### L IPID, CMP, A1C [facility] eA, CBC #### [facility] [address] [place] [address] [place] Eosinophils/100 WBC (Bld) 2.7 % Normal . [facility] Comment on above: Performed By: #### L IPID, CMP, A1C [facility] eA, CBC #### [facility] [address] [place] [address] [place] Erythrocyte distribution width (RBC) [Ratio] 17.2 % High 11.9-15.3 [facility] Comment on above: Performed By: #### L IPID, CMP, A1C [facility] e[facility], CBC #### [address] Hematocrit (Bld) [Volume fraction] 31.6 % Low 34.0-46.4 [facility] Comment on above: Performed By: #### L IPID, CMP, A1C [facility] eA, CBC #### [address] Hemoglobin (Bld) [Mass/Vol] 11.0 g/dL Low 11.8-15.4 [facility] Comment on above: Performed By: #### L IPID, CMP, A1C [facility] e[facility], CBC #### [address] Lymphocytes (Bld) [#/Vol] 1.5 10*3/uL Normal 1.00-4.8 [facility] Comment on above: Performed By: #### L IPID, CMP, A1C [facility] e[facility], CBC #### [address] Lymphocytes/100 WBC (Bld) 28.2 % Normal . [facility] Comment on above: Performed By: #### L IPID, CMP, A1C [facility] eA, CBC #### [address] MCH (RBC) [Entitic mass] 29.1 pg Normal 24.7-34.3 [facility] Comment on above: Performed By: #### L IPID, CMP, A1C [facility] eA, CBC #### [place] [address] [place] MCV (RBC) [Entitic vol] 83.3 fL Normal 80-100 [facility] Comment on above: Performed By: #### L IPID, CMP, A1C [facility] e[facility], CBC #### [address] Mean Corpuscular HGB Conc 34.9 g/dL Normal 32.0-35.0 [facility] Comment on above: Performed By: #### L IPID, CMP, A1C [facility] eA, CBC #### [place] [address] [place] Monocytes (Bld) [#/Vol] 0.3 10*3/uL Normal 0.0-0.8 [facility] Comment on above: Performed By: #### L IPID, CMP, A1C [facility] eA, CBC #### [facility] [address] [place] [address] [place] Monocytes/100 WBC (Bld) 5.0 % Normal . [facility] Comment on above: Performed By: #### L IPID, CMP, A1C [facility] eA, CBC #### [facility] [address] Neutrophils (Bld) [#/Vol] 3.4 10*3/uL Normal 1.8-7.7 [facility] Comment on above: Performed By: #### L IPID, CMP, A1C [facility] eA, CBC #### [address] Neutrophils/100 WBC (Bld) 63.6 % Normal . [facility] Comment on above: Performed By: #### L IPID, CMP, A1C [facility] eA, CBC #### [facility] [address] [place] [address] [place] NRBC% 0.0 /100{WBC} Normal 0-0.5 [facility] Comment on above: Performed By: #### L IPID, CMP, A1C [facility] eA, CBC #### [place] [address] [place] Platelet mean volume (Bld) [Entitic vol] 7.3 fL Normal 6.3-10.7 [facility] Comment on above: Performed By: #### L IPID, CMP, A1C [facility] eA, CBC #### [facility] [address] [place] [address] [place] Platelets (Bld) [#/Vol] 150 10*3/uL Normal 150-450 [facility] Comment on above: Performed By: #### L IPID, CMP, A1C [facility] eA, CBC #### [facility] [address] [place] [address] [place] RBC (Bld) [#/Vol] 3.79 10*6/uL Normal 3.60-5.00 [facility] Comment on above: Performed By: #### L IPID, CMP, A1C [facility] eA, CBC #### [facility] [address] [place] [address] WBC (Bld) [#/Vol] 5.3 10*3/uL Normal 3.8-11.6 [facility] Comment on above: Performed By: #### L IPID, CMP, A1C W[facility] eA, CBC #### [facility] [address] [place] [address] Comprehensive Metabolic Pane palmer 09-05-2023 Albumin [Mass/Vol] 4.2 g/dL Normal 3.5-5.7 [facility] Comment on above: Order Comment: FASTI NG Performed By: #### L IPID, CMP, A1C [facility] eA, CBC #### [address] Albumin/Globulin [Mass ratio] 1.9 {ratio} Normal [facility] Comment on above: Order Comment: FASTI NG Performed By: #### L IPID, CMP, A1C [facility] eA, CBC #### [facility] [address] [place] [address] ALP [Catalytic activity/Vol] 105 U/L High 34-104 [facility] Comment on above: Order Comment: FASTI NG Performed By: #### L IPID, CMP, A1C [facility] eA, CBC #### [facility] [address] [place] [address] ALT [Catalytic activity/Vol] 24 U/L Normal 7-52 [facility] Comment on above: Order Comment: FASTI NG Performed By: #### L IPID, CMP, A1C [facility] eA, CBC #### [facility] [address] [place] [address] Anion gap [Moles/Vol] 13.8 mmol/L Normal 6.0-15.0 [facility] Comment on above: Order Comment: FASTI NG Performed By: #### L IPID, CMP, A1C [facility] eA, CBC #### [address] [place] [address] [place] AST [Catalytic activity/Vol] 24 U/L Normal 13-39 [facility] Comment on above: Order Comment: FASTI NG Performed By: #### L IPID, CMP, A1C [facility] eA, CBC #### [facility] [address] Bilirubin [Mass/Vol] 0.5 mg/dL Normal 0.3-1.0 [facility] Comment on above: Order Comment: FASTI NG Performed By: #### L IPID, CMP, A1C [facility] eA, CBC #### [facility] [address] Calcium [Mass/Vol] 9.1 mg/dL Normal 8.6-10.3 [facility] Comment on above: Order Comment: FASTI NG Performed By: #### L IPID, CMP, A1C [facility] eA, CBC #### [facility] [address] [place] [address] [place] Chloride [Moles/Vol] 103 mmol/L Normal 98-107 [facility] Comment on above: Order Comment: FASTI NG Performed By: #### L IPID, CMP, A1C [facility] eA, CBC #### [facility] [address] [place] [address] [place] CO2 [Moles/Vol] 29.2 mmol/L Normal 21.0-31.0 [facility] Comment on above: Order Comment: FASTI NG Performed By: #### L IPID, CMP, A1C W[facility] eA, CBC #### [facility] [address] [place] [address] [place] Creatinine [Mass/Vol] 1.67 mg/dL High 0.60-1.20 [facility] Comment on above: Order Comment: FASTI NG Performed By: #### L IPID, CMP, A1C WTH eA, CBC #### [facility] [address] [place] [address] [place] GFR/1.73 sq M.predicted MDRD (S/P/Bld) [Vol rate/Area] 31.949 mL/min/{1.73_m2} Normal [facility] Comment on above: Order Comment: FASTI NG Performed By: #### L IPID, CMP, A1C [facility] eA, CBC #### [facility] [address] Globulin (S) [Mass/Vol] 2.2 g/dL [facility] Comment on above: Order Comment: FASTI NG Performed By: #### L IPID, CMP, A1C [facility] eA, CBC #### [facility] [address] Glucose [Mass/Vol] 172 mg/dL High 70-100 [facility] Comment on above: Order Comment: FASTI NG Result Comment: [facility] Glucose Reference Range is dependent on time and content of last meal. Glucose of more than 200 mg/dL in a nonstressed, ambulatory subject supports the diagnosis of Diabetes Mellitus. ADA recommended reference range Performed By: #### L IPID, CMP, A1C [facility] eA, CBC #### [facility] [address] Potassium [Moles/Vol] 4.0 mmol/L Normal 3.5-5.1 [facility] Comment on above: Order Comment: FASTI NG Performed By: #### L IPID, CMP, A1C [facility] eA, CBC #### [facility] [address] Protein [Mass/Vol] 6.4 g/dL Normal 6.4-8.9 [facility] Comment on above: Order Comment: FASTI NG Performed By: #### L IPID, CMP, A1C [facility] eA, CBC #### [facility] [address] [place] [id number] [facility] Sodium [Moles/Vol] 142 mmol/L Normal 136-145 [facility] Comment on above: Order Comment: FASTI NG Performed By: #### L IPID, CMP, A1C [facility] eA, CBC #### [facility] [address] [place] [id number] [facility] Urea nitrogen [Mass/Vol] 38 mg/dL High 7-25 [facility] Comment on above: Order Comment: FASTI NG Performed By: #### L IPID, CMP, A1C [facility] eA, CBC #### [facility] [address] Creatinine [Mass/volume] in Serum or PlasmaOrdered By: Vinay Matta on 09-05-2023 Creatinine [Mass/Vol] 1.67 mg/dL 0.60-1.20 [facility] Eosinophils Auto (Bld) [#/Vo l]Ordered By: Vinay Bunting on 09-05-2023 Eosinophils (Bld) [#/Vol] 0.1 10*3/uL 0.0-0.45 [facility] Eosinophils/100 WBC Auto (Bl d)Ordered By: Vinay Bunting on 09-05-2023 Eosinophils/100 WBC (Bld) 2.7 % . [facility] Erythrocyte distribution wid th Auto (RBC) [Ratio]Ordered By: Vinayreji Matta on 09-05-2023 Erythrocyte distribution width (RBC) [Ratio] 17.2 % 11.9-15.3 [facility] Globulin Calc (S) [Mass/Vol] Ordered By: [facility] on 09-05-2023 Globulin (S) [Mass/Vol] 2.2 g/dL [facility] Glucose [Mass/volume] in Ser um or PlasmaOrdered By: Vinayreji Matta on 09-05-2023 Glucose [Mass/Vol] 172 mg/dL 70-100 [facility] Comment on above: ADA recommended refe rence rangeRandom Glucose Reference Range is dependent on time and content of last meal. Glucose of more than 200 mg/dL in a nonstressed, ambulatory subject supports the diagnosis of Diabetes Mellitus. Glucose mean value [Mass/vol ume] in Blood Estimated from glycated hemoglobinOrdered By: Vinayreji Matta on 09-05-2023 Average glucose Estimated from glycated hemoglobin (Bld) [Mass/Vol] 192 mg/dL [facility] Hematocrit Auto (Bld) [Volum e fraction]Ordered By: Vinay Matta on 09-05-2023 Hematocrit (Bld) [Volume fraction] 31.6 % 34.0-46.4 [facility] Hemoglobin A1c percentageOrd ered By: Vinay Matta on 09-05-2023 HbA1c (Bld) [Mass fraction] 8.3 % 4.3-5.6 [facility] Comment on above: Increased risk for d iabetes: 5.7 - 6.4diabetes: >6.4glycemic control for adults with diabetes: <7.0 Hemoglobin [Mass/volume] in BloodOrdered By: Vinay Matta on 09-05-2023 Hemoglobin (Bld) [Mass/Vol] 11.0 g/dL 11.8-15.4 [facility] Leukocytes [#/volume] correc remberto for nucleated erythrocytes in Blood by Automated counOrdered By: Vinay Matta on 09-05-2023 WBC corrected for nucl RBC Auto (Bld) [#/Vol] 5.3 10*3/uL 3.8-11.6 [facility] Lipid Panelon 09-05-2023 Cholesterol [Mass/Vol] 116 mg/dL Low 140-200 [facility] Comment on above: Order Comment: FASTI NG Result Comment: Chol less than 200 mg/dl low risk Chol 201-239 mg/dl borderline risk Chol 240 mg/dl and greater high risk Performed By: #### L IPID, CMP, A1C WT eA, CBC #### [facility] [address] [place] [address] [place] Cholesterol in HDL [Mass/Vol] 42 mg/dL Normal 23-92 [facility] Comment on above: Order Comment: FASTI NG Result Comment: HDL CHOL ATP-III CLASSIFICATION Cardiovascular Risk HDL > or equal to 60 mg/dL LOW HDL < 40 mg/dL HIGH Performed By: #### L IPID, CMP, A1C WTH eA, CBC #### [facility] [address] [place] [id number] [facility] Cholesterol.total/Chol esterol in HDL [Mass ratio] 2.8 {ratio} Normal <5.0 [facility] Comment on above: Order Comment: FASTI NG Result Comment: PERF ORMED BY: [place] [address] PATHOLOGIST [employer] MACHINE TENDER THERESA MULLER M.D. Performed By: #### L IPID, CMP, A1C [facility] eA, CBC #### [facility] [address] LDL Cholesterol,Calculated 55 mg/dL Normal 0-100 [facility] Comment on above: Order Comment: FASTI NG Result Comment: LDL ATP III CLASSIFICATION LDL less than 100 mg/dL Optimal LDL 100-129 mg/dL Near or above optimal LDL 130-159 mg/dL Borderline high LDL 160-189 mg/dL High LDL greater than 189 mg/dL Very high Performed By: #### L IPID, CMP, A1C WT eA, CBC #### [facility] [address] Triglyceride w/Reflex 93 mg/dL Normal 0-149 [facility] Comment on above: Order Comment: FASTI NG Result Comment: TRIG ATP III CLASSIFICATION TRIG less than 150 mg/dL Normal TRIG 150-199 mg/dL Borderline high TRIG 200-500 mg/dL High TRIG greater than 500 mg/dL Very high Standard traceable to the Center for Disease Conrtrol and Prevention (CDC) test method. Performed By: #### L IPID, CMP, A1C [facility] eA, CBC #### [facility] [address] VLDL CHOLESTEROL 18 mg/dL Normal [facility] Comment on above: Order Comment: FASTI NG Performed By: #### L IPID, CMP, A1C [facility] eA, CBC #### [facility] [address] [place] [address] [place] Lymphocytes Auto (Bld) [#/Vo l]Ordered By: Vinay Bunting on 09-05-2023 Lymphocytes (Bld) [#/Vol] 1.5 10*3/uL 1.00-4.8 [facility] Lymphocytes/100 WBC Auto (Bl d)Ordered By: Vinay Bunting on 09-05-2023 Lymphocytes/100 WBC (Bld) 28.2 % . [facility] MCH Auto (RBC) [Entitic mass ]Ordered By: Vinay Bunting on 09-05-2023 MCH (RBC) [Entitic mass] 29.1 pg 24.7-34.3 [facility] MCHC Auto (RBC) [Mass/Vol]Or dered By: Vinay Bunting on 09-05-2023 MCHC (RBC) [Mass/Vol] 34.9 g/dL 32.0-35.0 [facility] MCV Auto (RBC) [Entitic vol] Ordered By: Vinay Bunting on 09-05-2023 MCV (RBC) [Entitic vol] 83.3 fL 80-100 [facility] Monocytes Auto (Bld) [#/Vol] Ordered By: Vinay Bunting on 09-05-2023 Monocytes (Bld) [#/Vol] 0.3 10*3/uL 0.0-0.8 [facility] Monocytes/100 WBC Auto (Bld) Ordered By: Vinay Bunting on 09-05-2023 Monocytes/100 WBC (Bld) 5.0 % . [facility] Neutrophils Auto (Bld) [#/Vo l]Ordered By: Vinay Bunting on 09-05-2023 Neutrophils (Bld) [#/Vol] 3.4 10*3/uL 1.8-7.7 [facility] Neutrophils/100 WBC Auto (Bl d)Ordered By: Vinay Bunting on 09-05-2023 Neutrophils/100 WBC (Bld) 63.6 % . [facility] No Panel InformationOrdered By: Vinay Bunting on 09-05-2023 Estimated GFR (CKD-EPI) 31.949 mL/Min [facility] Creatinine Clearance (Chem N/A [facility] Nucleated erythrocytes [Pres ence] in Blood by Automated countOrdered By: Vinay Bunting on 09-05-2023 Nucleated RBC Auto Ql (Bld) 0.0 /100{WBC} 0-0.5 [facility] [facility] Platelet mean volume Auto (B ld) [Entitic vol]Ordered By: Vinay Bunting on 09-05-2023 Platelet mean volume (Bld) [Entitic vol] 7.3 fL 6.3-10.7 [facility] Platelets Auto (Bld) [#/Vol] Ordered By: Vinay Bunting on 09-05-2023 Platelets (Bld) [#/Vol] 150 10*3/uL 150-450 [facility] Potassium [Moles/volume] in Serum or PlasmaOrdered By: Vinay Bunting on 09-05-2023 Potassium [Moles/Vol] 4.0 mmol/L 3.5-5.1 [facility] Protein [Mass/volume] in Ser um or PlasmaOrdered By: Vinay Bunting on 09-05-2023 Protein [Mass/Vol] 6.4 g/dL 6.4-8.9 [facility] RBC Auto (Bld) [#/Vol]Ordere d By: Vinay Bunting on 09-05-2023 RBC (Bld) [#/Vol] 3.79 10*6/uL 3.60-5.00 [facility] Serum or plasma albumin/glob ulin mass ratioOrdered By: Vinay Bunting on 09-05-2023 Albumin/Globulin [Mass ratio] 1.9 {ratio} [facility] Serum or plasma anion gap de terminationOrdered By: Vinay Bunting on 09-05-2023 Anion gap [Moles/Vol] 13.8 mmol/L 6.0-15.0 [facility] Serum or plasma high density lipoprotein (HDL) cholesterol measurementOrdered By: Vinay Bunting on 09-05-2023 Cholesterol in HDL [Mass/Vol] 42 mg/dL 23-92 [facility] Comment on above: HDL CHOL ATP-III CLA SSIFICATION Cardiovascular RiskHDL > or equal to 60 mg/dL LOWHDL < 40 mg/dL HIGH Serum or plasma total choles terol/high density lipoprotein (HDL) cholesterol mass ratOrdered By: Vinay Bunting on 09-05-2023 Cholesterol.total/Chol esterol in HDL [Mass ratio] 2.8 {ratio} <5.0 [facility] Sodium [Moles/volume] in Ser um or PlasmaOrdered By: Vinay Bunting on 09-05-2023 Sodium [Moles/Vol] 142 mmol/L 136-145 [facility] Triglyceride [Mass/volume] i n Serum or PlasmaOrdered By: Vinay Bunting on 09-05-2023 Triglyceride [Mass/Vol] 93 mg/dL 0-149 [facility] Comment on above: TRIG ATP III CLASSIF ICATIONTRIG less than 150 mg/dL NormalTRIG 150-199 mg/dL Borderline highTRIG 200-500 mg/dL High TRIG greater than 500 mg/dL Very highStandard traceable to the Center for Disease Conrtrol and Prevention (CDC) test method. Urate [Mass/volume] in Serum or PlasmaOrdered By: Vinay Bunting on 09-05-2023 Urate [Mass/Vol] 6.0 mg/dL 2.3-6.6 [facility] Urea nitrogen [Mass/volume] in Serum or PlasmaOrdered By: Vinay Bunting on 09-05-2023 Urea nitrogen [Mass/Vol] 38 mg/dL 7 [facility] Uric Acidon 09-05-2023 Urate [Mass/Vol] 6.0 mg/dL Normal 2.3-6.6 [facility] Comment on above: Order Comment: FASTI NG Performed By: #### L IPID, CMP, A1C WTH eA, CBC #### [facility] [address] WBC Auto (Bld) [#/Vol]Ordere d By: Vinay Bunting on 09-05-2023 WBC (Bld) [#/Vol] 5.3 10*3/uL 3.8-11.6 [facility] Lab Reportson 08-02-2023 Lab Reports [id number]:127 Normal [facility] Consultation Noteon 07-28-20 Consultation Note [id number]:127 Normal [facility] CNPMaya 07-27-2023 CNPN Telephone (MARSHALL) ANH TEJEDA ([id number]) 1950 F Date Time Provider Department 07/27/23 SAMANTHA MCMAHAN During your visit today, we recorded the following information about you: Samantha Mcmahan RN 07/27/2023 10:24 AM Signed ----- Message from Daksha Bridges PA-C sent at 07/27/2023 8:07 AM EDT ----- Please call with normal iron studies Samantha Mcmahan RN 07/27/2023 10:31 AM Signed Pt aware of MM message. She denies any questions or concerns at this time Samantha Mcmahan RN Allergies As of Date: 07/27/2023 Noted Allergy Reaction ACETAMINOPHEN-CODEINE 10/01/2022 14 - Other: See Comments Comments: pt states she is unwilling to try even plain tylenol after this experience even though she states she took tylenol prior to this and had no problems TYLENOL #3 (CODEINE) 09/26/2022 14 - Other: See Comments Comments: Upset stomach Date Reviewed: 07/24/2023 Reviewed by: Daksha Bridges PA-C - Fully Assessed Reason for Visit: Results [95] Prescriptions as of 07/27/2023 - Calcium Carb-Magnesium Carb 250-300 mg tab Take by mouth. - MAGNESIUM OXIDE ORAL Take 1 tablet by mouth once daily. - MEDIHONEY, HONEY, 100 % pste APPLY A THIN LAYER TWICE DAILY - allopurinol (ZYLOPRIM) 100 mg tablet Take 100 mg by mouth once daily. - ASCORBIC ACID, VITAMIN C, ORAL Take 500 mg by mouth once daily. - aspirin (ASPIR-81 ORAL) Take 81 mg by mouth once daily. - atenolol (TENORMIN) 50 mg tablet Take 50 mg by mouth once daily. - atorvastatin (LIPITOR) 20 mg tablet Take 20 mg by mouth once daily. - cholecalciferol (VITAMIN D3) 1,000 unit tab tablet Take 1,000 Units by mouth once daily. - diclofenac, EC, (VOLTAREN) 75 mg EC tablet Take 75 mg by mouth once daily. - furosemide (LASIX) 20 mg tablet Take 20 mg by mouth once daily. - gabapentin (NEURONTIN) 300 mg capsule Take 300 mg by mouth daily at bedtime. - lisinopril-hydroCHLOROthiaz jennifer (PRINZIDE,ZESTORETIC) 10-12.5 mg per tablet Take 1 tablet by mouth once daily. - glimepiride (AMARYL) 2 mg tablet Take 2 mg by mouth daily with breakfast. - metformin HCl (METFORMIN ORAL) Take 1,000 mg by mouth once daily. - omeprazole (PRILOSEC) 20 mg capsule Take 20 mg by mouth once daily. - rOPINIRole (REQUIP) 0.5 mg tablet Take 0.5 mg by mouth twice daily. Problem List As Of Date 07/27/2023 Noted Resolved Iron deficiency anemia due to chronic blood los*10/03/2022 Encounter Status:Closed by SAMANTHA MCMAHAN on 07/27/23 Normal [facility] CBC W Auto Differential pane l (Bld)on 07-24-2023 Basophils (Bld) [#/Vol] 10*3/uL Normal <0.11 [facility] Comment on above: Order Comment: Speci men Type: BLOOD SPECIMEN Ordering Facility: [facility] Address: [address] [place] [address] Performed By: #### 5 0190-8, 2275- #### [facility] CLIA [id number] [address] [place] [address] [place] Basophils/100 WBC (Bld) 0.3 % Normal [facility] Comment on above: Order Comment: Speci men Type: BLOOD SPECIMEN Ordering Facility: [facility] Address: [address] [place] [address] Performed By: #### 5 0190-8, 2275- #### [facility] CLIA [id number] [address] [place] [address] [place] Differential cell count method Nom (Bld) Auto Normal [facility] Comment on above: Order Comment: Speci men Type: BLOOD SPECIMEN Ordering Facility: [facility] Address: [address] [place], [place] [address] Performed By: #### 5 0190-8, 2275- #### [facility] CLIA [id number] [address] [place] [address] [place] Eosinophils (Bld) [#/Vol] 0.20 10*3/uL Normal <0.46 [facility] Comment on above: Order Comment: Speci men Type: BLOOD SPECIMEN Ordering Facility: [facility] Address: [address] Performed By: #### 5 0190-8, 2275- #### [facility] CLIA [id number] [address] [place] [address] [place] Eosinophils/100 WBC (Bld) 3.0 % Normal [facility] Comment on above: Order Comment: Speci men Type: BLOOD SPECIMEN Ordering Facility: [facility] Address: [address] Performed By: #### 5 0190-8, 2276-02 #### [facility] CLIA [id number] [address] [place] [address] [place] Erythrocyte distribution width (RBC) [Ratio] 16.0 % High 11.5-15.0 [facility] Comment on above: Order Comment: Speci men Type: BLOOD SPECIMEN Ordering Facility: [facility] Address: [address] [place], [place] [address] Performed By: #### 5 0190-8, 2276-02 #### [facility] CLIA [id number] [address] [place] [address] [place] Hematocrit (Bld) [Volume fraction] 35.2 % Low 36.0-46.0 [facility] Comment on above: Order Comment: Speci men Type: BLOOD SPECIMEN Ordering Facility: [facility] Address: [address] Performed By: #### 5 0190-8, 2275- #### [facility] CLIA [id number] [address] [place] [address] [place] Hemoglobin (Bld) [Mass/Vol] 11.6 g/dL Normal 11.5-15.5 [facility] Comment on above: Order Comment: Speci men Type: BLOOD SPECIMEN Ordering Facility: [facility] Address: [address] [place], [place] [address] Performed By: #### 5 0190-8, 2275- #### [facility] CLIA [id number] [address] [place] [address] [place] Immature granulocytes (Bld) [#/Vol] 10*3/uL Normal <0.10 [facility] Comment on above: Order Comment: Speci men Type: BLOOD SPECIMEN Ordering Facility: [facility] Address: [address] Performed By: #### 5 0190-8, 2275- #### [facility] CLIA [id number] [address] [place] [address] [place] Immature granulocytes/100 WBC (Bld) 0.3 % Normal [facility] Comment on above: Order Comment: Speci men Type: BLOOD SPECIMEN Ordering Facility: [facility] Address: [address] Performed By: #### 5 0190-8, 2276-02 #### [facility] CLIA [id number] [address] [place] [address] [place] Lymphocytes (Bld) [#/Vol] 1.55 10*3/uL Normal 1.00-4.00 [facility] Comment on above: Order Comment: Speci men Type: BLOOD SPECIMEN Ordering Facility: [facility] Address: [address] Performed By: #### 5 0190-8, 2276-02 #### [facility] CLIA [id number] [address] [place] [address] [place] Lymphocytes/100 WBC (Bld) 23.3 % Normal [facility] Comment on above: Order Comment: Speci men Type: BLOOD SPECIMEN Ordering Facility: [facility] Address: [address] Performed By: #### 5 0190-8, 2275- #### [facility] CLIA [id number] [address] [place] [address] [place] MCH (RBC) [Entitic mass] 28.0 pg Normal 26.0-34.0 [facility] Comment on above: Order Comment: Speci men Type: BLOOD SPECIMEN Ordering Facility: [facility] Address: [address] [place] [address] Performed By: #### 5 0190-8, 2275- #### [facility] CLIA [id number] [address] [place] [address] [place] MCHC (RBC) [Mass/Vol] 33.0 g/dL Normal 30.5-36.0 [facility] Comment on above: Order Comment: Speci men Type: BLOOD SPECIMEN Ordering Facility: [facility] Address: [address] [place] [address] Performed By: #### 5 0190-8, 2275- #### [facility] CLIA [id number] [address] [place] [address] [place] MCV (RBC) [Entitic vol] 84.8 fL Normal 80.0-100.0 [facility] Comment on above: Order Comment: Speci men Type: BLOOD SPECIMEN Ordering Facility: [facility] Address: [address] [place] [address] Performed By: #### 5 0190-8, 2275- #### [facility] CLIA [id number] [address] [place] [address] [place] Monocytes (Bld) [#/Vol] 0.39 10*3/uL Normal <0.87 [facility] Comment on above: Order Comment: Speci men Type: BLOOD SPECIMEN Ordering Facility: [facility] Address: [address] [place] [address] Performed By: #### 5 0190-8, 2275- #### [facility] CLIA [id number] [address] [place] [address] [place] Monocytes/100 WBC (Bld) 5.9 % Normal [facility] Comment on above: Order Comment: Speci men Type: BLOOD SPECIMEN Ordering Facility: [facility] Address: [address] [place], [place] [address] Performed By: #### 5 0190-8, 2275-4 #### [facility] CLIA [id number] [address] [place] [address] [place] Neutrophils (Bld) [#/Vol] 4.46 10*3/uL Normal 1.45-7.50 [facility] Comment on above: Order Comment: Speci men Type: BLOOD SPECIMEN Ordering Facility: [facility] Address: [address] [place] [address] Performed By: #### 5 0190-8, 2276-02 #### [facility] CLIA [id number] [address] [place] [address] [place] Neutrophils/100 WBC (Bld) 67.2 % Normal [facility] Comment on above: Order Comment: Speci men Type: BLOOD SPECIMEN Ordering Facility: [facility] Address: [address] [place], [place] [address] Performed By: #### 5 0190-8, 2276-02 #### [facility] CLIA [id number] [address] [place] [address] [place] Nucleated RBC (Bld) [#/Vol] 10*3/uL Normal <0.01 [facility] Comment on above: Order Comment: Speci men Type: BLOOD SPECIMEN Ordering Facility: [facility] Address: [address] [place], [place] [address] Performed By: #### 5 0190-8, 2275- #### [facility] CLIA [id number] [address] [place] [address] [place] Nucleated RBC/100 WBC (Bld) [Ratio] 0.0 /100 WBC Normal [facility] Comment on above: Order Comment: Speci men Type: BLOOD SPECIMEN Ordering Facility: [facility] Address: [address] Performed By: #### 5 0190-8, 2275-4 #### [facility] CLIA [id number] [address] [place] [address] [place] Platelet mean volume (Bld) [Entitic vol] 9.6 fL Normal 9.0-12.7 [facility] Comment on above: Order Comment: Speci men Type: BLOOD SPECIMEN Ordering Facility: [facility] Address: [address] Performed By: #### 5 0190-8, 2275-4 #### [facility] CLIA [id number] [address] [place] [address] [place] Platelets (Bld) [#/Vol] 162 10*3/uL Normal 150-400 [facility] Comment on above: Order Comment: Speci men Type: BLOOD SPECIMEN Ordering Facility: [facility] Address: [address] [place], [place] [address] Performed By: #### 5 0190-8, 4 #### [facility] CLIA [id number] [address] [place] [address] [place] RBC (Bld) [#/Vol] 4.15 10*6/uL Normal 3.90-5.20 [facility] Comment on above: Order Comment: Speci men Type: BLOOD SPECIMEN Ordering Facility: [facility] Address: [address] [place] [address] Performed By: #### 5 0190-8, 2275-4 #### [facility] CLIA [id number] [address] [place] [address] [place] WBC (Bld) [#/Vol] 6.64 10*3/uL Normal 3.70-11.00 [facility] Comment on above: Order Comment: Speci men Type: BLOOD SPECIMEN Ordering Facility: [facility] Address: [address] [place], [place] [address] Performed By: #### 5 0190-8, 2276-4 #### [facility] CLIA [id number] [address] [facility] [address] [facility] CNOVSPon 07-24-2023 CNOVSP Visit (SP) Office (H EMASA) ANH TEJEDA ([id number]) 1950 F Date Time Provider Department 07/24/23 2:00 PM DAKSHA BRIDGES During your visit today, we recorded the following information about you: Temperature Pulse Respiration Blood pressure 97.7 degrees 79/minute 16/minute 132/54 Weight Height 92.6 kg 1.58 m Daksha Bridges PA-C 07/24/2023 2:26 PM Signed PATIENT NAME: Anh Tejeda CLINIC NO.: [id number] ATTENDING PHYSICIAN: Delores Walker MD DATE OF SERVICE: May 01, 2023 (Elements copied from my note dated February 06, 2023, have been reviewed and updated where appropriate, and all reflect current assessment and medical decision making during today's encounter, May 01, 2023) CHIEF COMPLAINT: Follow up Diagnosis: NAINA Treatment: Venofer x 3 doses 10/2022 HPI: Anh returns for follow up. She has been doing well.She does have carpal tunnel in her right wrist that she is wearing at night. Denies any worsening fatigue, shortness of breath or dizziness. Denies bleeding. Current Outpatient Medications Medication Sig MAGNESIUM OXIDE ORAL Take 1 tablet by mouth once daily. MEDIHONEY, HONEY, 100 % pste APPLY A THIN LAYER TWICE DAILY allopurinol (ZYLOPRIM) 100 mg tablet Take 100 mg by mouth once daily. ASCORBIC ACID, VITAMIN C, ORAL Take 500 mg by mouth once daily. aspirin (ASPIR-81 ORAL) Take 81 mg by mouth once daily. atenolol (TENORMIN) 50 mg tablet Take 50 mg by mouth once daily. atorvastatin (LIPITOR) 20 mg tablet Take 20 mg by mouth once daily. cholecalciferol (VITAMIN D3) 1,000 unit tab tablet Take 1,000 Units by mouth once daily. diclofenac, EC, (VOLTAREN) 75 mg EC tablet Take 75 mg by mouth once daily. furosemide (LASIX) 20 mg tablet Take 20 mg by mouth once daily. gabapentin (NEURONTIN) 300 mg capsule Take 300 mg by mouth daily at bedtime. lisinopril-hydroCHLOROthiaz jennifer (PRINZIDE,ZESTORETIC) 10-12.5 mg per tablet Take 1 tablet by mouth once daily. glimepiride (AMARYL) 2 mg tablet Take 2 mg by mouth daily with breakfast. metformin HCl (METFORMIN ORAL) Take 1,000 mg by mouth once daily. omeprazole (PRILOSEC) 20 mg capsule Take 20 mg by mouth once daily. rOPINIRole (REQUIP) 0.5 mg tablet Take 0.5 mg by mouth twice daily. Calcium Carb-Magnesium Carb 250-300 mg tab Take by mouth. (Patient not taking: Reported on 05/01/2023) No current facility-administered medications for this visit. ALLERGIES Allergen Reactions Acetaminophen-Codei* Other: See Comments pt states she is unwilling to try even plain tylenol after this experience even though she states she took tylenol prior to this and had no problems Tylenol #3 [Codeine] Other: See Comments Upset stomach PAST MEDICAL HISTORY Diagnosis Date Anemia Benign fundic gland polyps of stomach Diabetes mellitus (HCC) Diverticulosis GERD (gastroesophageal reflux disease) Hemorrhoids Hyperlipidemia Polyneuropathy Rectal polyp Restless leg syndrome PAST SURGICAL HISTORY Procedure Laterality Date COLONOSCOPY EGD W/O BRSH SPEC VARICIES INJ FAMILY HISTORY Problem Relation Age of Onset other (Congenital heart disease) Mother Lung Cancer Father Social History Tobacco Use Smoking status: Never Passive exposure: Past Smokeless tobacco: Never Substance Use Topics Alcohol use: Never Drug use: Not Currently REVIEW OF SYSTEMS GENERAL: No weight loss, malaise or fevers. No night sweats. +fatigue HEENT: Negative for headaches, No changes in hearing or vision, no nose bleeds or other nasal problems. RESPIRATORY: Negative for cough, wheezing +ONEIL CARDIOVASCULAR: Negative for chest pain, leg swelling and palpitations GI: Negative for abdominal discomfort, blood in stools or black stools and change in bowel habits : Negative for dysuria, frequency and incontinence MUSCULOSKELETAL: Negative for joint pain or swelling, back pain, and muscle pain. SKIN: Negative for lesions, rash, and itching. HEMATOLOGY/LYMPHOLOGY Negative for prolonged bleeding, bruising easily, and swollen nodes. NEURO: Negative for numbness or tingling of hands/feet. No weakness. PHYSICAL EXAMINATION: BP 132/54 Pulse 79 Temp 36.5 ?C (97.7 ?F) (Temporal) Resp 16 Ht 158 cm (5' 2.21 ) Wt 92.6 kg (204 lb 3.2 oz) SpO2 95% BMI 37.10 kg/m? ECOG PERFORMANCE STATUS: 1- Restricted in physically strenuous activity. Carries out light duty. General: Alert and oriented, no distress, pleasant and cooperative. Heart: Regular, normal S1 and S2, no murmurs, rubs, or gallops Lungs: Clear to auscultation bilaterally Abdomen: Benign Extremities: Feet/ankles without edema, posterior tibial pulses full and symmetrical LABS: Glucose (mg/dL) Date Value 07/24/2023 159 Potassium (mmol/L) Date Value 07/24/2023 4.6 Sodium (mmol/L) Date Value 07/24/2023 145 Chloride (mmol/L) Date Value 07/24/2023 105 CO2 (mmol (more content not included)... Normal [facility]2023 [facility] ([facility] ANH ETJEDA ([id number]) 1950 F Date Time Provider Department 07/24/23 DAKSHA BRIDGES During your visit today, we recorded the following information about you: Daksha Bridges PA-C 07/24/2023 2:23 PM Signed Please call Dr. Matta's office and inform them that we have noticed a progressive decline in Anh's GFR and Creatinine over the year. Please forward the last year of labs to his office. Anh said she doesn't see him until August, but I didn't know if he'd like to see her sooner. TROY Onofre Brandi, RN 07/24/2023 3:30 PM Signed Call made to Dr. Matta's office. Office was closed for the weekend. Left message on [employer] with message. Labs faxed as requested. Herminia Snider RN Allergies As of Date: 07/24/2023 Noted Allergy Reaction ACETAMINOPHEN-CODEINE 10/01/2022 14 - Other: See Comments Comments: pt states she is unwilling to try even plain tylenol after this experience even though she states she took tylenol prior to this and had no problems TYLENOL #3 (CODEINE) 09/26/2022 14 - Other: See Comments Comments: Upset stomach Date Reviewed: 07/24/2023 Reviewed by: Daksha Bridges PA-C - Fully Assessed Reason for Visit: Results [95] Prescriptions as of 07/24/2023 - Calcium Carb-Magnesium Carb 250-300 mg tab Take by mouth. - MAGNESIUM OXIDE ORAL Take 1 tablet by mouth once daily. - MEDIHONEY, HONEY, 100 % pste APPLY A THIN LAYER TWICE DAILY - allopurinol (ZYLOPRIM) 100 mg tablet Take 100 mg by mouth once daily. - ASCORBIC ACID, VITAMIN C, ORAL Take 500 mg by mouth once daily. - aspirin (ASPIR-81 ORAL) Take 81 mg by mouth once daily. - atenolol (TENORMIN) 50 mg tablet Take 50 mg by mouth once daily. - atorvastatin (LIPITOR) 20 mg tablet Take 20 mg by mouth once daily. - cholecalciferol (VITAMIN D3) 1,000 unit tab tablet Take 1,000 Units by mouth once daily. - diclofenac, EC, (VOLTAREN) 75 mg EC tablet Take 75 mg by mouth once daily. - furosemide (LASIX) 20 mg tablet Take 20 mg by mouth once daily. - gabapentin (NEURONTIN) 300 mg capsule Take 300 mg by mouth daily at bedtime. - lisinopril-hydroCHLOROthiaz jennifer (PRINZIDE,ZESTORETIC) 10-12.5 mg per tablet Take 1 tablet by mouth once daily. - glimepiride (AMARYL) 2 mg tablet Take 2 mg by mouth daily with breakfast. - metformin HCl (METFORMIN ORAL) Take 1,000 mg by mouth once daily. - omeprazole (PRILOSEC) 20 mg capsule Take 20 mg by mouth once daily. - rOPINIRole (REQUIP) 0.5 mg tablet Take 0.5 mg by mouth twice daily. Problem List As Of Date 07/24/2023 Noted Resolved Iron deficiency anemia due to chronic blood los*10/03/2022 Encounter Status:Closed by HERMINIA SNIDER on 07/24/23 Normal [facility] Comprehensive metabolic 2000 panelon 07-24-2023 Albumin [Mass/Vol] 4.6 g/dL Normal 3.9-4.9 [facility] Comment on above: Order Comment: Patricia tarango Type: BLOOD SPECIMEN Ordering Facility: [facility] Address: [address] [place] [address] Performed By: #### 5 0190-8, 2275-4 #### [facility] CLIA [id number] [address] [place] [address] [place] ALP [Catalytic activity/Vol] 128 U/L High 34-123 [facility] Comment on above: Order Comment: Patricia tarango Type: BLOOD SPECIMEN Ordering Facility: [facility] Address: [address] [place] [address] Performed By: #### 5 0190-8, 2275-4 #### [facility] CLIA [id number] [address] [place] [address] [place] ALT [Catalytic activity/Vol] 20 U/L Normal 7-38 [facility] Comment on above: Order Comment: Patricia tarango Type: BLOOD SPECIMEN Ordering Facility: [facility] Address: [address] [place] [address] Performed By: #### 5 0190-8, 2275-4 #### [facility] CLIA [id number] [address] [place] [address] [place] Anion gap [Moles/Vol] 15 mmol/L Normal 9-18 [facility] Comment on above: Order Comment: Speci men Type: BLOOD SPECIMEN Ordering Facility: [facility] Address: [address] [place] [address] Performed By: #### 5 0190-8, 2275- #### [facility] CLIA [id number] [address] [place] [address] [place] AST [Catalytic activity/Vol] 24 U/L Normal 13-35 [facility] Comment on above: Order Comment: Speci men Type: BLOOD SPECIMEN Ordering Facility: [facility] Address: [address] [place], [place] [address] Performed By: #### 5 0190-8, 2275- #### [facility] CLIA [id number] [address] [place] [address] [place] Bilirubin [Mass/Vol] 0.5 mg/dL Normal 0.2-1.3 [facility] Comment on above: Order Comment: Speci men Type: BLOOD SPECIMEN Ordering Facility: [facility] Address: [address] [place], [place] [address] Performed By: #### 5 0190-8, 2276-02 #### [facility] CLIA [id number] [address] [place] [address] [place] Calcium [Mass/Vol] 9.9 mg/dL Normal 8.5-10.2 [facility] Comment on above: Order Comment: Speci men Type: BLOOD SPECIMEN Ordering Facility: [facility] Address: [address] [place], [place] [address] Performed By: #### 5 0190-8, 2275- #### [facility] CLIA [id number] [address] [place] [address] [place] Chloride [Moles/Vol] 105 mmol/L Normal 97-105 [facility] Comment on above: Order Comment: Speci men Type: BLOOD SPECIMEN Ordering Facility: [facility] Address: [address] [address] Performed By: #### 5 0190-8, 2275- #### [facility] CLIA [id number] [address] [place] [address] [place] CO2 [Moles/Vol] 25 mmol/L Normal 22-30 [facility] Comment on above: Order Comment: Speci men Type: BLOOD SPECIMEN Ordering Facility: [facility] Address: [address] [address] Performed By: #### 5 0190-8, 2275- #### [facility] CLIA [id number] [address] [place] [address] [place] Creatinine [Mass/Vol] 1.71 mg/dL High 0.58-0.96 [facility] Comment on above: Order Comment: Speci men Type: BLOOD SPECIMEN Ordering Facility: [facility] Address: [address] [place] [address] Performed By: #### 5 0190-8, 2276-02 #### [facility] CLIA [id number] [address] [place] [address] Creatinine and Glomerular filtration rate.predicted panel (S/P/Bld) 31 mL/min/1.73m??? Low >=60 [facility] Comment on above: Order Comment: Speci men Type: BLOOD SPECIMEN Ordering Facility: [facility] Address: [address] [place] [address] Result Comment: Maru mated Glomerular Filtration Rate (eGFR) is calculated using the 2020 CKD-EPI creatinine equation. This equation utilizes serum creatinine, sex, and age as parameters. The creatinine assay has traceable calibration to isotope dilution-mass spectrometry. Refer to KDIGO guidelines for clinical interpretation. In patients with unstable renal function, e.g. those with acute kidney injury, the eGFR may not accurately reflect actual GFR. Performed By: #### 5 0190-8, 2275-4 #### [facility] CLIA [id number] [address] [place] [address] [place] Glucose [Mass/Vol] 159 mg/dL High 74-99 [facility] Comment on above: Order Comment: Speci men Type: BLOOD SPECIMEN Ordering Facility: [facility] Address: [address] [place] [address] Result Comment: The [place] Diabetes Association (ADA) provides guidance for cutoff values for fasting glucose and random glucose. The ADA defines fasting as no caloric intake for at least 8 hours. Fasting plasma glucose results between 100 to 125 mg/dL indicate increased risk for diabetes (prediabetes). Fasting plasma glucose results greater than or equal to 126 mg/dL meet the criteria for diagnosis of diabetes. In the absence of unequivocal hyperglycemia, results should be confirmed by repeat testing. In a patient with classic symptoms of hyperglycemia or hyperglycemic crisis, random plasma glucose results greater than or equal to 200 mg/dL meet the criteria for diagnosis of diabetes. Reference: Standards of Medical Care in Diabetes 2016, [place] Diabetes Association. Diabetes Care. 2016.39(Suppl 1). Performed By: #### 5 0190-8, 2275-4 #### [facility] CLIA [id number] [facility] [place] [address] [place] Potassium [Moles/Vol] 4.6 mmol/L Normal 3.7-5.1 [facility] Comment on above: Order Comment: Speci men Type: BLOOD SPECIMEN Ordering Facility: [facility] Address: [address] [place], [place] [address] Performed By: #### 5 0190-8, 2275- #### [facility] CLIA [id number] [address] [place] [address] [place] Protein [Mass/Vol] 7.0 g/dL Normal 6.3-8.0 [facility] Comment on above: Order Comment: Speci men Type: BLOOD SPECIMEN Ordering Facility: [facility] Address: [address] [place] [address] Performed By: #### 5 0190-8, 2275- #### [facility] CLIA [id number] [address] [place] [address] [place] Sodium [Moles/Vol] 145 mmol/L High 136-144 [facility] Comment on above: Order Comment: Speci men Type: BLOOD SPECIMEN Ordering Facility: [facility] Address: [address] [place] [address] Performed By: #### 5 0190-8, 2275-4 #### [facility] CLIA [id number] [address] [place] [address] [place] Urea nitrogen [Mass/Vol] 42 mg/dL High 7-21 [facility] Comment on above: Order Comment: Speci men Type: BLOOD SPECIMEN Ordering Facility: [facility] Address: [address] [place] [address] Performed By: #### 5 0190-8, 2275- #### [facility] CLIA [id number] [address] [place] [address] [place] Ferritin SerPl-mCncon 2022 Ferritin [Mass/Vol] 111.0 ng/mL Normal 14.7-205.1 [facility] Comment on above: Order Comment: Speci men Type: BLOOD SPECIMEN Ordering Facility: [facility] Address: [address] [place] [address] Performed By: #### 5 0190-8, 2275- #### [facility] CLIA [id number] [address] [place] [address] [place] Iron and Iron binding capaci ty panelon 07-24-2023 Iron [Mass/Vol] 75 ug/dL Normal 41-186 [facility] Comment on above: Order Comment: Speci men Type: BLOOD SPECIMEN Ordering Facility: [facility] Address: [address] [place] [address] Performed By: #### 5 0190-8, 2275-4 #### [facility] CLIA [id number] [address] [place] [address] [place] Iron binding capacity [Mass/Vol] 409 ug/dL High 232-386 [facility] Comment on above: Order Comment: Speci men Type: BLOOD SPECIMEN Ordering Facility: [facility] Address: [address] [place] [address] Performed By: #### 5 0190-8, 6-4 #### [facility] CLIA [id number] [address] [place] [address] [place] Iron/TIBC [Molar ratio] 18.3 % Normal 15.0-57.0 [facility] Comment on above: Order Comment: Speci men Type: BLOOD SPECIMEN Ordering Facility: [facility] Address: [address] [place] [address] Performed By: #### 5 0190-8, 2275-4 #### [facility] CLIA [id number] [address] [place] [address] [place] Lab Reportson 05-23-2023 Lab Reports [id number]:127 Normal [facility] Lab Reports [id number]:127 Normal [facility] A1C with Estimated Average [facility] 05-20-2023 Glucose [Mass/Vol] 163 mg/dL Normal [facility] Comment on above: Result Comment: PERF ORMED BY: [facility] [address] [place] [address] PATHOLOGIST BLISTER PACKING MACHINE TENDER THERESA MULLER M.D. Performed By: #### L IPID, CMP, A1C WT eA, CBC #### [facility] [address] [place] [address] [facility] HbA1c (Bld) [Mass fraction] 7.3 % High 4.3-5.6 [facility] Comment on above: Result Comment: Incr eased risk for diabetes: 5.7 - 6.4 diabetes: >6.4 glycemic control for adults with diabetes: <7.0 Performed By: #### L IPID, CMP, A1C WTH eA, CBC #### [place] [address] [place] Anti-Centromere B Antibodies on 05-20-2023 Anti-Centromere B Antibodies <0.2 Normal 0.0-0.9 [facility] Comment on above: Result Comment: Perf ormed at: - [facility] [address] [id number] Piano Professor: Darren Ashby PhD, Phone: [phone] Performed By: #### L IPID, BMP, CBC #### [place] [address] [place] Anti-RNPon 05-20-2023 Anti-MULTIMEDIA ARTIST <0.2 Normal 0.0-0.9 [facility] Comment on above: Performed By: #### L IPID, BMP, CBC #### [place] [address] [place] Anti-Balbuena Antibodieson 07-0 Anti-Balbuena Antibodies <0.2 Normal 0.0-0.9 [facility] Comment on above: Performed By: #### L IPID, BMP, CBC #### [place] [address] [place] Anti-dsDNA(DBL)Abon 05-20-20 23 Anti-dsDNA(DBL)Ab 1 Normal 0-9 [facility] Comment on above: Result Comment: Nega tive <5 Equivocal 5 - 9 Positive >9 Performed By: #### L IPID, BMP, CBC #### [facility] [address] [place] [address] [place] C-Reactive Proteinon 023 C-Reactive Protein 0.8 mg/dL High 0.0-0.5 [facility] Comment on above: Performed By: #### L IPID, BMP, CBC #### [place] [address] [place] Chromatin Antibodyon 023 Chromatin Antibody <0.2 Normal 0.0-0.9 [facility] Comment on above: Result Comment: PERF ORMED BY: [place] [address] PATHOLOGIST BLISTER PACKING MACHINE TENDER THERESA MULLRE M.D. Performed By: #### L IPID, BMP, CBC #### [address] Complete Blood Count Auto Di ffon 05-20-2023 Basophils (Bld) [#/Vol] 0.0 10*3/uL Normal 0.0-0.2 [facility] Comment on above: Result Comment: PERF ORMED BY: [place] [address] PATHOLOGIST BLISTER PACKING MACHINE TENDER THERESA MULLER M.D. Performed By: #### L IPID, CMP, A1C WTH eA, CBC #### [address] Basophils/100 WBC (Bld) 0.7 % Normal . [facility] Comment on above: Performed By: #### L IPID, CMP, A1C WTH eA, CBC #### [place] [address] [place] Eosinophils (Bld) [#/Vol] 0.1 10*3/uL Normal 0.0-0.45 [facility] Comment on above: Performed By: #### L IPID, CMP, A1C WTH eA, CBC #### [place] [address] [place] Eosinophils/100 WBC (Bld) 2.4 % Normal . [facility] Comment on above: Performed By: #### L IPID, CMP, A1C WTH eA, CBC #### [place] [address] [place] Erythrocyte distribution width (RBC) [Ratio] 16.7 % High 11.9-15.3 [facility] Comment on above: Performed By: #### L IPID, CMP, A1C WTH eA, CBC #### [place] [address] [place] Hematocrit (Bld) [Volume fraction] 31.8 % Low 34.0-46.4 [facility] Comment on above: Performed By: #### L IPID, CMP, A1C WTH eA, CBC #### [address] Hemoglobin (Bld) [Mass/Vol] 10.9 g/dL Low 11.8-15.4 [facility] Comment on above: Performed By: #### L IPID, CMP, A1C WTH eA, CBC #### [address] Lymphocytes (Bld) [#/Vol] 1.2 10*3/uL Normal 1.00-4.8 [facility] Comment on above: Performed By: #### L IPID, CMP, A1C WTH eA, CBC #### [address] Lymphocytes/100 WBC (Bld) 23.2 % Normal . [facility] Comment on above: Performed By: #### L IPID, CMP, A1C WTH eA, CBC #### [address] MCH (RBC) [Entitic mass] 28.4 pg Normal 24.7-34.3 [facility] Comment on above: Performed By: #### L IPID, CMP, A1C WTH eA, CBC #### [address] MCV (RBC) [Entitic vol] 83.2 fL Normal 80-100 [facility] Comment on above: Performed By: #### L IPID, CMP, A1C WTH eA, CBC #### [address] Mean Corpuscular HGB Conc 34.1 g/dL Normal 32.0-35.0 [facility] Comment on above: Performed By: #### L IPID, CMP, A1C WTH eA, CBC #### [place] [address] [place] Monocytes (Bld) [#/Vol] 0.2 10*3/uL Normal 0.0-0.8 [facility] Comment on above: Performed By: #### L IPID, CMP, A1C WTH eA, CBC #### [facility] [address] [place] [address] [place] Monocytes/100 WBC (Bld) 3.8 % Normal . [facility] Comment on above: Performed By: #### L IPID, CMP, A1C WTH eA, CBC #### [facility] [address] Neutrophils (Bld) [#/Vol] 3.5 10*3/uL Normal 1.8-7.7 [facility] Comment on above: Performed By: #### L IPID, CMP, A1C WTH eA, CBC #### [facility] [address] [place] [address] Neutrophils/100 WBC (Bld) 69.9 % Normal . [facility] Comment on above: Performed By: #### L IPID, CMP, A1C WTH eA, CBC #### [facility] [address] [place] [address] [place] NRBC% 0.1 /100{WBC} Normal 0-0.5 [facility] Comment on above: Performed By: #### L IPID, CMP, A1C WTH eA, CBC #### [facility] [address] [place] [address] Platelet mean volume (Bld) [Entitic vol] 7.0 fL Normal 6.3-10.7 [facility] Comment on above: Performed By: #### L IPID, CMP, A1C WTH eA, CBC #### [facility] [address] [place] [address] [place] Platelets (Bld) [#/Vol] 144 10*3/uL Low 150-450 [facility] Comment on above: Performed By: #### L IPID, CMP, A1C WTH eA, CBC #### [facility] [address] [place] [address] [place] RBC (Bld) [#/Vol] 3.82 10*6/uL Normal 3.60-5.00 [facility] Comment on above: Performed By: #### L IPID, CMP, A1C WTH eA, CBC #### [facility] [address] [place] [address] WBC (Bld) [#/Vol] 5.1 10*3/uL Normal 3.8-11.6 [facility] Comment on above: Performed By: #### L IPID, CMP, A1C WTH eA, CBC #### [facility] [address] [place] [address] Comprehensive Metabolic Pane palmer 05-20-2023 Albumin [Mass/Vol] 4.1 g/dL Normal 3.5-5.7 [facility] Comment on above: Performed By: #### L IPID, CMP, A1C WTH eA, CBC #### [address] Albumin/Globulin [Mass ratio] 1.9 {ratio} Normal [facility] Comment on above: Performed By: #### L IPID, CMP, A1C WTH eA, CBC #### [facility] [address] [place] [address] ALP [Catalytic activity/Vol] 98 U/L Normal 34-104 [facility] Comment on above: Performed By: #### L IPID, CMP, A1C WTH eA, CBC #### [facility] [address] [place] [address] ALT [Catalytic activity/Vol] 17 U/L Normal 7-52 [facility] Comment on above: Performed By: #### L IPID, CMP, A1C WTH eA, CBC #### [facility] [address] [place] [address] Anion gap [Moles/Vol] 12.7 mmol/L Normal 6.0-15.0 [facility] Comment on above: Performed By: #### L IPID, CMP, A1C WTH eA, CBC #### [facility] [address] [place] [address] AST [Catalytic activity/Vol] 23 U/L Normal 13-39 [facility] Comment on above: Performed By: #### L IPID, CMP, A1C WTH eA, CBC #### [facility] [address] Bilirubin [Mass/Vol] 0.5 mg/dL Normal 0.3-1.0 [facility] Comment on above: Performed By: #### L IPID, CMP, A1C WTH eA, CBC #### [facility] [address] [place] [address] Calcium [Mass/Vol] 8.7 mg/dL Normal 8.6-10.3 [facility] Comment on above: Performed By: #### L IPID, CMP, A1C WTH eA, CBC #### [facility] [address] [place] [address] Chloride [Moles/Vol] 103 mmol/L Normal 98-107 [facility] Comment on above: Performed By: #### L IPID, CMP, A1C WTH eA, CBC #### [address] CO2 [Moles/Vol] 30.3 mmol/L Normal 21.0-31.0 [facility] Comment on above: Performed By: #### L IPID, CMP, A1C WTH eA, CBC #### [address] Creatinine [Mass/Vol] 1.21 mg/dL High 0.60-1.20 [facility] Comment on above: Performed By: #### L IPID, CMP, A1C WTH eA, CBC #### [place] [address] [place] GFR/1.73 sq M.predicted MDRD (S/P/Bld) [Vol rate/Area] 47.029 mL/min/{1.73_m2} [facility] Comment on above: Performed By: #### L IPID, CMP, A1C WTH eA, CBC #### [facility] [address] [place] [address] Globulin (S) [Mass/Vol] 2.2 g/dL [facility] Comment on above: Performed By: #### L IPID, CMP, A1C WTH eA, CBC #### [facility] [address] [place] [address] [place] Glucose [Mass/Vol] 152 mg/dL High 70-100 [facility] Comment on above: Result Comment: [facility] Glucose Reference Range is dependent on time and content of last meal. Glucose of more than 200 mg/dL in a nonstressed, ambulatory subject supports the diagnosis of Diabetes Mellitus. ADA recommended reference range Performed By: #### L IPID, CMP, A1C WTH eA, CBC #### [facility] [address] Potassium [Moles/Vol] 4.0 mmol/L Normal 3.5-5.1 [facility] Comment on above: Performed By: #### L IPID, CMP, A1C WTH eA, CBC #### [facility] [address] [place] [address] [place] Protein [Mass/Vol] 6.3 g/dL Low 6.4-8.9 [facility] Comment on above: Performed By: #### L IPID, CMP, A1C WTH eA, CBC #### [facility] [address] [place] [address] [place] Sodium [Moles/Vol] 142 mmol/L Normal 136-145 [facility] Comment on above: Performed By: #### L IPID, CMP, A1C WTH eA, CBC #### [facility] [address] [place] [address] [place] Urea nitrogen [Mass/Vol] 25 mg/dL Normal 7-25 [facility] Comment on above: Performed By: #### L IPID, CMP, A1C WTH eA, CBC #### [facility] [address] [place] [address] [place] Erythrocyte Sedimentation Ra jam 05-20-2023 ESR (Bld) [Velocity] 12 mm/h Normal 0-29 [facility] Comment on above: Result Comment: PERF ORMED BY: [place] [address] PATHOLOGIST BLISTER PACKING MACHINE TENDER THERESA MULLER M.D. Performed By: #### T SH3, CRP, QMAC44ICO, ESR #### [facility] [address] #### ADNA, SSA, [id number], SPE, CHROMATIN, JO1, METH, CENTROME, SSB, ANTIR, BALBUENA #### [facility] , RAJAN-1 Antibodyon 05-20-2023 RAJAN-1 Antibody <0.2 Normal 0.0-0.9 [facility] Comment on above: Performed By: #### L IPID, BMP, CBC #### [facility] [address] Lipid Panelon 05-20-2023 Cholesterol [Mass/Vol] 116 mg/dL Low 140-200 [facility] Comment on above: Result Comment: Chol less than 200 mg/dl low risk Chol 201-239 mg/dl borderline risk Chol 240 mg/dl and greater high risk Performed By: #### L IPID, CMP, A1C WTH eA, CBC #### [address] Cholesterol in HDL [Mass/Vol] 38 mg/dL Normal 23-92 [facility] Comment on above: Result Comment: HDL CHOL ATP-III CLASSIFICATION Cardiovascular Risk HDL > or equal to 60 mg/dL LOW HDL < 40 mg/dL HIGH Performed By: #### L IPID, CMP, A1C WTH eA, CBC #### [address] Cholesterol.total/Chol esterol in HDL [Mass ratio] 3.1 {ratio} Normal <5.0 [facility] Comment on above: Result Comment: PERF ORMED BY: [place] [address] PATHOLOGIST BLISTER PACKING MACHINE TENDER THERESA MULLER M.D. Performed By: #### L IPID, CMP, A1C WTH eA, CBC #### [facility] [address] LDL Cholesterol,Calculated 56 mg/dL Normal 0-100 [facility] Comment on above: Result Comment: LDL ATP III CLASSIFICATION LDL less than 100 mg/dL Optimal LDL 100-129 mg/dL Near or above optimal LDL 130-159 mg/dL Borderline high LDL 160-189 mg/dL High LDL greater than 189 mg/dL Very high Performed By: #### L RISHABH SMITH, A1C WT Drake, CBC #### [facility] [address] Triglyceride w/Reflex 109 mg/dL Normal 0-149 [facility] Comment on above: Result Comment: TRIG ATP III CLASSIFICATION TRIG less than 150 mg/dL Normal TRIG 150-199 mg/dL Borderline high TRIG 200-500 mg/dL High TRIG greater than 500 mg/dL Very high Standard traceable to the Center for Disease Conrtrol and Prevention (CDC) test method. Performed By: #### L RISHABH SMITH, [address] [place], CBC #### [facility] [address] VLDL CHOLESTEROL 21 mg/dL Normal [facility] Comment on above: Performed By: #### L RISHABH SMITH, [address] [place], CBC #### [facility] [address] Methylmalonic Acidon 023 Methylmalonic Acid 300 Normal 0-378 [facility] Comment on above: Result Comment: This test was developed and its performance characteristics determined by [facility]. It has not been cleared or approved by the Food and Drug Administration. Performed at: [address] [id number] Piano Professor: Keith Quijano MD, Phone: [phone] Performed By: #### L JUSTIN SMITH, CBC #### [facility] [address] [place] [address] [place] Protein Electrophoresis, Ser umon 05-20-2023 Albumin [Mass/Vol] 3.5 g/dL Normal 2.9-4.4 [facility] Comment on above: Performed By: #### L JUSTIN SMITH, CBC #### [facility] [address] [place] [id number] [place] Albumin/Globulin [Mass ratio] 1.3 {ratio} Normal 0.7-1.7 [facility] Comment on above: Performed By: #### L IPID, BMP, CBC #### [facility] [address] Qmohe-8-Tpfmrdhs 0.2 g/dL Normal 0.0-0.4 [facility] Comment on above: Performed By: #### L IPID, BMP, CBC #### [facility] [address] Rsbbl-9-Iqlmxpne 0.8 g/dL Normal 0.4-1.0 [facility] Comment on above: Performed By: #### L IPID, BMP, CBC #### [facility] [address] [place] [address] Beta Globulin 0.9 g/dL Normal 0.7-1.3 [facility] Comment on above: Performed By: #### L IPID, BMP, CBC #### [facility] [address] [place] [address] Gamma Globulin 0.6 g/dL Normal 0.4-1.8 [facility] Comment on above: Performed By: #### L IPID, BMP, CBC #### [facility] [address] Globulin (S) [Mass/Vol] 2.6 g/dL Normal 2.2-3.9 [facility] Comment on above: Performed By: #### L IPID, BMP, CBC #### [facility] [address] [place] [address] M-Bijan Not Observed Normal Not Observed [facility] Comment on above: Performed By: #### L IPID, BMP, CBC #### [facility] [address] [place] [address] [place] Protein [Mass/Vol] 6.1 g/dL Normal 6.0-8.5 [facility] Comment on above: Performed By: #### L IPID, BMP, CBC #### [facility] [address] [place] [address] SPE-Note Normal . [facility] Comment on above: Result Comment: Prot ein electrophoresis scan will follow via computer, mail, or steak sauce maker delivery. Performed at: - [facility] [id number] Piano Professor: Darren Ashby PhD, Phone: [phone] Performed By: #### L IPID BMP, CBC #### [address] SS-A/Ro Sjogrens Antibodyon 05-20-2023 SS-A/Ro Sjogrens Antibody <0.2 Normal 0.0-0.9 [facility] Comment on above: Performed By: #### L IPID BMP, CBC #### [address] SS-B/La Sjogrens Antibodyon 05-20-2023 SS-B/La Sjogrens Antibody <0.2 Normal 0.0-0.9 [facility] Comment on above: Performed By: #### L IPID BMP, CBC #### [address] Scleroderma 70 Antibodieson 05-20-2023 Scleroderma 70 Antibodies <0.2 Normal 0.0-0.9 [facility] [facility] Comment on above: Performed By: #### L IPJASON BMP, CBC #### [address] Thyroid Stimulating Hormoneo n 05-20-2023 TSH Qn 2.11 m[IU]/L Normal 0.45-5.33 [facility] Comment on above: Result Comment: PERF ORMED BY: [place] [address] PATHOLOGIST [employer] THERESA MULLER M.D. Performed By: #### L IPJASON BMP, CBC #### [address] Vit. B12/Folate Profileon Cobalamin (Vitamin B12) [Mass/Vol] 487 pg/mL Normal 180-914 [facility] Comment on above: Performed By: #### L IPID BMP, CBC #### [address] [place] [address] [facility] Folate 20.0 ng/mL Normal >5.9 [facility] Comment on above: Result Comment: Jessica te reference range: >5.9 ng/ml The WHO technical consultation on folate and vitamin b12 deficiencies has determined that folate concentrations less than 4 ng/ml are considered deficient. Performed By: #### L IPID, BMP, CBC #### [facility] [address] [id number] [facility] CNPNon 05-04-2023 CNPN Telephone (HEMTSA) ANH TEJEDA ([id number]) 1950 F Date Time Provider Department 05/04/23 KARLIE CAR During your visit today, we recorded the following information about you: Karlie Car RN 05/04/2023 10:03 AM Signed ----- Message from Daksha Bridges PA-C sent at 05/04/2023 7:40 AM EDT ----- Please call and inform the patient that her iron levels are good and she does not need iron. Karlie Car RN 05/04/2023 10:04 AM Signed Patient notified and verbalized understanding. No further questions. Karlie Car RN Allergies As of Date: 05/04/2023 Noted Allergy Reaction ACETAMINOPHEN-CODEINE 10/01/2022 14 - Other: See Comments Comments: pt states she is unwilling to try even plain tylenol after this experience even though she states she took tylenol prior to this and had no problems TYLENOL #3 (CODEINE) 09/26/2022 14 - Other: See Comments Comments: Upset stomach Date Reviewed: 05/01/2023 Reviewed by: Daksha Bridges PA-C - Fully Assessed Reason for Visit: Results [95] Prescriptions as of 05/04/2023 - Calcium Carb-Magnesium Carb 250-300 mg tab Take by mouth. - ferrous sulfate 325 mg (65 mg iron) tablet Take 325 mg by mouth. - MAGNESIUM OXIDE ORAL Take 1 tablet by mouth once daily. - MEDIHONEY, HONEY, 100 % pste APPLY A THIN LAYER TWICE DAILY - allopurinol (ZYLOPRIM) 100 mg tablet Take 100 mg by mouth once daily. - ASCORBIC ACID, VITAMIN C, ORAL Take 500 mg by mouth once daily. - aspirin (ASPIR-81 ORAL) Take 81 mg by mouth once daily. - atenolol (TENORMIN) 50 mg tablet Take 50 mg by mouth once daily. - atorvastatin (LIPITOR) 20 mg tablet Take 20 mg by mouth once daily. - cholecalciferol (VITAMIN D3) 1,000 unit tab tablet Take 1,000 Units by mouth once daily. - diclofenac, EC, (VOLTAREN) 75 mg EC tablet Take 75 mg by mouth once daily. - furosemide (LASIX) 20 mg tablet Take 20 mg by mouth once daily. - gabapentin (NEURONTIN) 300 mg capsule Take 300 mg by mouth daily at bedtime. - lisinopril-hydroCHLOROthiaz jennifer (PRINZIDE,ZESTORETIC) 10-12.5 mg per tablet Take 1 tablet by mouth once daily. - glimepiride (AMARYL) 2 mg tablet Take 2 mg by mouth daily with breakfast. - metformin HCl (METFORMIN ORAL) Take 1,000 mg by mouth once daily. - omeprazole (PRILOSEC) 20 mg capsule Take 20 mg by mouth once daily. - rOPINIRole (REQUIP) 0.5 mg tablet Take 0.5 mg by mouth twice daily. Problem List As Of Date 05/04/2023 Noted Resolved Iron deficiency anemia due to chronic blood los*10/03/2022 Encounter Status:Closed by KARLIE CAR on 05/04/23 Normal [facility] Consultation Noteon 05-04-20 Consultation Note [id number]#[id number]:127 Normal [facility] Postoperative Documentson Postoperative Documents [id number]#[id number]:127 Normal [facility] CBC W Auto Differential pane l (Bld)on 05-01-2023 Basophils (Bld) [#/Vol] 10*3/uL Normal <0.11 [facility] Comment on above: Order Comment: Speci men Type: BLOOD SPECIMEN Ordering Facility: [facility] Address: [address] [address] Performed By: #### 5 0190-8, 2275- #### [facility] CLIA [id number] [address] [place] [address] [place] Basophils/100 WBC (Bld) 0.1 % Normal [facility] Comment on above: Order Comment: Speci men Type: BLOOD SPECIMEN Ordering Facility: [facility] Address: [address] [place] [address] Performed By: #### 5 0190-8, 2276-02 #### [facility] CLIA [id number] [address] [place] [address] [place] Differential cell count method Nom (Bld) Auto Normal [facility] Comment on above: Order Comment: Speci men Type: BLOOD SPECIMEN Ordering Facility: [facility] Address: [address] [place], [place] [address] Performed By: #### 5 0190-8, 2276-02 #### [facility] CLIA [id number] [address] [place] [address] [place] Eosinophils (Bld) [#/Vol] 0.11 10*3/uL Normal <0.46 [facility] Comment on above: Order Comment: Speci men Type: BLOOD SPECIMEN Ordering Facility: [facility] Address: [address] Performed By: #### 5 0190-8, 2276-02 #### [facility] CLIA [id number] [address] [place] [address] [place] Eosinophils/100 WBC (Bld) 1.5 % Normal [facility] Comment on above: Order Comment: Speci men Type: BLOOD SPECIMEN Ordering Facility: [facility] Address: [address] Performed By: #### 5 0190-8, 2275-4 #### [facility] CLIA [id number] [address] [place] [address] [place] Erythrocyte distribution width (RBC) [Ratio] 15.7 % High 11.5-15.0 [facility] Comment on above: Order Comment: Speci men Type: BLOOD SPECIMEN Ordering Facility: [facility] Address: [address] [address] Performed By: #### 5 0190-8, 2275-4 #### [facility] CLIA [id number] [address] [place] [address] [place] Hematocrit (Bld) [Volume fraction] 35.7 % Low 36.0-46.0 [facility] Comment on above: Order Comment: Speci men Type: BLOOD SPECIMEN Ordering Facility: [facility] Address: [address] [place] [address] Performed By: #### 5 0190-8, 2275- #### [facility] CLIA [id number] [address] [place] [address] [place] Hemoglobin (Bld) [Mass/Vol] 11.7 g/dL Normal 11.5-15.5 [facility] Comment on above: Order Comment: Speci men Type: BLOOD SPECIMEN Ordering Facility: [facility] Address: [address] [place], [place] [address] Performed By: #### 5 0190-8, 2275- #### [facility] CLIA [id number] [address] [place] [address] [place] Immature granulocytes (Bld) [#/Vol] 10*3/uL Normal <0.10 [facility] Comment on above: Order Comment: Speci men Type: BLOOD SPECIMEN Ordering Facility: [facility] Address: [address] [place], [place] [address] Performed By: #### 5 0190-8, 2276-02 #### [facility] CLIA [id number] [address] [place] [address] [place] Immature granulocytes/100 WBC (Bld) 0.3 % Normal [facility] Comment on above: Order Comment: Speci men Type: BLOOD SPECIMEN Ordering Facility: [facility] Address: [address] Performed By: #### 5 0190-8, 2276-02 #### [facility] CLIA [id number] [address] [place] [address] [place] Lymphocytes (Bld) [#/Vol] 1.64 10*3/uL Normal 1.00-4.00 [facility] Comment on above: Order Comment: Speci men Type: BLOOD SPECIMEN Ordering Facility: [facility] Address: [address] Performed By: #### 5 0190-8, 2276-02 #### [facility] CLIA [id number] [address] [place] [address] [place] Lymphocytes/100 WBC (Bld) 22.3 % Normal [facility] Comment on above: Order Comment: Speci men Type: BLOOD SPECIMEN Ordering Facility: [facility] Address: [address] Performed By: #### 5 0190-8, 2276-02 #### [facility] CLIA [id number] [address] [place] [address] [place] MCH (RBC) [Entitic mass] 28.5 pg Normal 26.0-34.0 [facility] Comment on above: Order Comment: Speci men Type: BLOOD SPECIMEN Ordering Facility: [facility] Address: [address] Performed By: #### 5 0190-8, 2275- #### [facility] CLIA [id number] [address] [place] [address] [place] MCHC (RBC) [Mass/Vol] 32.8 g/dL Normal 30.5-36.0 [facility] Comment on above: Order Comment: Speci men Type: BLOOD SPECIMEN Ordering Facility: [facility] Address: [address] [place], [place] [address] Performed By: #### 5 0190-8, 2275- #### [facility] CLIA [id number] [address] [place] [address] [place] MCV (RBC) [Entitic vol] 86.9 fL Normal 80.0-100.0 [facility] Comment on above: Order Comment: Speci men Type: BLOOD SPECIMEN Ordering Facility: [facility] Address: [address] [place], [place] [address] Performed By: #### 5 0190-8, 2276-02 #### [facility] CLIA [id number] [address] [place] [address] [place] Monocytes (Bld) [#/Vol] 0.44 10*3/uL Normal <0.87 [facility] Comment on above: Order Comment: Speci men Type: BLOOD SPECIMEN Ordering Facility: [facility] Address: [address] [place] [address] Performed By: #### 5 0190-8, 2276-02 #### [facility] CLIA [id number] [address] [place] [address] [place] Monocytes/100 WBC (Bld) 6.0 % Normal [facility] Comment on above: Order Comment: Speci men Type: BLOOD SPECIMEN Ordering Facility: [facility] Address: [address] [place] [address] Performed By: #### 5 0190-8, 2275- #### [facility] CLIA [id number] [address] [place] [address] [place] Neutrophils (Bld) [#/Vol] 5.12 10*3/uL Normal 1.45-7.50 [facility] Comment on above: Order Comment: Speci men Type: BLOOD SPECIMEN Ordering Facility: [facility] Address: [address] [place] [address] Performed By: #### 5 0190-8, 2276-02 #### [facility] CLIA [id number] [address] [place] [address] [place] Neutrophils/100 WBC (Bld) 69.8 % Normal [facility] Comment on above: Order Comment: Speci men Type: BLOOD SPECIMEN Ordering Facility: [facility] Address: [address] [place] [address] Performed By: #### 5 0190-8, 2276-02 #### [facility] CLIA [id number] [address] [place] [address] [place] Nucleated RBC (Bld) [#/Vol] 10*3/uL Normal <0.01 [facility] Comment on above: Order Comment: Speci men Type: BLOOD SPECIMEN Ordering Facility: [facility] Address: [address] [place] [address] Performed By: #### 5 0190-8, 2276-02 #### [facility] CLIA [id number] [address] [place] [address] [place] Nucleated RBC/100 WBC (Bld) [Ratio] 0.0 /100 WBC Normal [facility] Comment on above: Order Comment: Speci men Type: BLOOD SPECIMEN Ordering Facility: [facility] Address: [address] [place] [address] Performed By: #### 5 0190-8, 2276-02 #### [facility] CLIA [id number] [address] [place] [address] [place] Platelet mean volume (Bld) [Entitic vol] 9.2 fL Normal 9.0-12.7 [facility] Comment on above: Order Comment: Speci men Type: BLOOD SPECIMEN Ordering Facility: [facility] Address: [address] [place] [address] Performed By: #### 5 0190-8, 2275-4 #### [facility] CLIA [id number] [address] [place] [address] [place] Platelets (Bld) [#/Vol] 182 10*3/uL Normal 150-400 [facility] Comment on above: Order Comment: Speci men Type: BLOOD SPECIMEN Ordering Facility: [facility] Address: [address] [place] [address] Performed By: #### 5 0190-8, 2275-4 #### [facility] CLIA [id number] [address] [place] [address] [place] RBC (Bld) [#/Vol] 4.11 10*6/uL Normal 3.90-5.20 [facility] Comment on above: Order Comment: Speci men Type: BLOOD SPECIMEN Ordering Facility: [facility] Address: [address] [place] [address] Performed By: #### 5 0190-8, 2275-4 #### [facility] CLIA [id number] [address] [place] [address] [place] WBC (Bld) [#/Vol] 7.34 10*3/uL Normal 3.70-11.00 [facility] Comment on above: Order Comment: Speci men Type: BLOOD SPECIMEN Ordering Facility: [facility] Address: [address] [place] [address] Performed By: #### 5 0190-8, 2275-4 #### [facility] CLIA [id number] [address] [place] [address] [place] CNOVSPon 05-01-2023 CNOVSP Visit (SP) Office (H EMASA) ANH TEJEDA ([id number]) 1950 F Date Time Provider Department 05/01/23 2:00 PM DAKSHA BRIDGES During your visit today, we recorded the following information about you: Temperature Pulse Respiration Blood pressure 97.6 degrees 82/minute 18/minute 131/49 Weight Height 93.6 kg 1.58 m Daksha Bridges PA-C 05/01/2023 2:21 PM Signed PATIENT NAME: Anh Tejeda CLINIC NO.: [id number] ATTENDING PHYSICIAN: Delores Walker MD DATE OF SERVICE: May 01, 2023 (Elements copied from my note dated February 06, 2023, have been reviewed and updated where appropriate, and all reflect current assessment and medical decision making during today's encounter, May 01, 2023) CHIEF COMPLAINT: Follow up Diagnosis: NAINA Treatment: Venofer x 3 doses 10/2022 HPI: Anh returns for follow up. Since her last visit she did have admission to [facility] in February 2023 for syncope and UTI. She also had elevated BP a swell. She had a complete neuro and cardiac work up and has sabrina doing well She has had good energy levels. No sign of blood loss. She also did see Dr. Russell last week and he put her on magnesium and iron tablet. She reports that she did have a colonoscopy a few weeks ago at [facility]. I do not have any of these records. She said they removed a polyp. She is tolerating the oral iron currently and she is taking one a day 65 mg. Current Outpatient Medications Medication Sig ferrous sulfate 325 mg (65 mg iron) tablet Take 325 mg by mouth. MAGNESIUM OXIDE ORAL Take 1 tablet by mouth once daily. MEDIHONEY, HONEY, 100 % pste APPLY A THIN LAYER TWICE DAILY allopurinol (ZYLOPRIM) 100 mg tablet Take 100 mg by mouth once daily. ASCORBIC ACID, VITAMIN C, ORAL Take 500 mg by mouth once daily. aspirin (ASPIR-81 ORAL) Take 81 mg by mouth once daily. atenolol (TENORMIN) 50 mg tablet Take 50 mg by mouth once daily. atorvastatin (LIPITOR) 20 mg tablet Take 20 mg by mouth once daily. cholecalciferol (VITAMIN D3) 1,000 unit tab tablet Take 1,000 Units by mouth once daily. diclofenac, EC, (VOLTAREN) 75 mg EC tablet Take 75 mg by mouth once daily. furosemide (LASIX) 20 mg tablet Take 20 mg by mouth once daily. gabapentin (NEURONTIN) 300 mg capsule Take 300 mg by mouth daily at bedtime. lisinopril-hydroCHLOROthiaz jenniefr (PRINZIDE,ZESTORETIC) 10-12.5 mg per tablet Take 1 tablet by mouth once daily. glimepiride (AMARYL) 2 mg tablet Take 2 mg by mouth daily with breakfast. metformin HCl (METFORMIN ORAL) Take 1,000 mg by mouth once daily. omeprazole (PRILOSEC) 20 mg capsule Take 20 mg by mouth once daily. rOPINIRole (REQUIP) 0.5 mg tablet Take 0.5 mg by mouth twice daily. Calcium Carb-Magnesium Carb 250-300 mg tab Take by mouth. (Patient not taking: Reported on 05/01/2023) No current facility-administered medications for this visit. ALLERGIES Allergen Reactions Acetaminophen-Codei* Other: See Comments pt states she is unwilling to try even plain tylenol after this experience even though she states she took tylenol prior to this and had no problems Tylenol #3 [Codeine] Other: See Comments Upset stomach PAST MEDICAL HISTORY Diagnosis Date Anemia Benign fundic gland polyps of stomach Diabetes mellitus (HCC) Diverticulosis GERD (gastroesophageal reflux disease) Hemorrhoids Hyperlipidemia Polyneuropathy Rectal polyp Restless leg syndrome PAST SURGICAL HISTORY Procedure Laterality Date COLONOSCOPY EGD W/O RUST SPEC VARICIES INJ FAMILY HISTORY Problem Relation Age of Onset other (Congenital heart disease) Mother Lung Cancer Father Social History Tobacco Use Smoking status: Never Passive exposure: Past Smokeless tobacco: Never Substance Use Topics Alcohol use: Never Drug use: Not Currently REVIEW OF SYSTEMS GENERAL: No weight loss, malaise or fevers. No night sweats. +fatigue HEENT: Negative for headaches, No changes in hearing or vision, no nose bleeds or other nasal problems. RESPIRATORY: Negative for cough, wheezing +ONEIL CARDIOVASCULAR: Negative for chest pain, leg swelling and palpitations GI: Negative for abdominal discomfort, blood in stools or black stools and change in bowel habits : Negative for dysuria, frequency and incontinence MUSCULOSKELETAL: Negative for joint pain or swelling, back pain, and muscle pain. SKIN: Negative for lesions, rash, and itching. HEMATOLOGY/LYMPHOLOGY Negative for prolonged bleeding, bruising easily, and swollen nodes. NEURO: Negative for numbness or tingling of hands/feet. No weakness. PHYSICAL EXAMINATION: BP (!) 131/49 Pulse 82 Temp 36.4 ?C (97.6 ?F) (Temporal) Resp 18 Ht 158 cm (5' 2.21 ) Wt 93.6 kg (206 lb 6.4 oz) SpO2 95% BMI 37.50 kg/m? ECOG PERFORMANCE STATUS: 1- Restricted in physically strenuous activity. Carries out light duty. General: Alert and oriented, no distress, pleasant an (more content not included)... Normal [facility] Comprehensive metabolic 2000 panelon 05-01-2023 Albumin [Mass/Vol] 4.6 g/dL Normal 3.9-4.9 [facility] Comment on above: Order Comment: Speci men Type: BLOOD SPECIMEN Ordering Facility: [facility] Address: [address] [address] Performed By: #### 5 0190-8, 2276-02 #### [facility] CLIA [id number] [address] [place] [address] [place] ALP [Catalytic activity/Vol] 114 U/L Normal 34-123 [facility] Comment on above: Order Comment: Speci men Type: BLOOD SPECIMEN Ordering Facility: [facility] Address: [address] Performed By: #### 5 0190-8, 2276-02 #### [facility] CLIA [id number] [address] [place] [address] [place] ALT [Catalytic activity/Vol] 20 U/L Normal 7-38 [facility] Comment on above: Order Comment: Speci men Type: BLOOD SPECIMEN Ordering Facility: [facility] Address: [address] [address] Performed By: #### 5 0190-8, 2275- #### [facility] CLIA [id number] [address] [place] [address] [place] Anion gap [Moles/Vol] 15 mmol/L Normal 9-18 [facility] Comment on above: Order Comment: Speci men Type: BLOOD SPECIMEN Ordering Facility: [facility] Address: [address] [place] [address] Performed By: #### 5 0190-8, 2275- #### [facility] CLIA [id number] [address] [place] [address] [place] AST [Catalytic activity/Vol] 25 U/L Normal 13-35 [facility] Comment on above: Order Comment: Speci men Type: BLOOD SPECIMEN Ordering Facility: [facility] Address: [address] [place] [address] Performed By: #### 5 0190-8, 2275- #### [facility] CLIA [id number] [address] [place] [address] [place] Bilirubin [Mass/Vol] 0.6 mg/dL Normal 0.2-1.3 [facility] Comment on above: Order Comment: Speci men Type: BLOOD SPECIMEN Ordering Facility: [facility] Address: [address] [place] [address] Performed By: #### 5 0190-8, 2275- #### [facility] CLIA [id number] [address] [place] [address] [place] Calcium [Mass/Vol] 9.5 mg/dL Normal 8.5-10.2 [facility] Comment on above: Order Comment: Speci men Type: BLOOD SPECIMEN Ordering Facility: [facility] Address: [address] [place] [address] Performed By: #### 5 0190-8, 2275- #### [facility] CLIA [id number] [address] [place] [address] [place] Chloride [Moles/Vol] 96 mmol/L Low 97-105 [facility] Comment on above: Order Comment: Speci men Type: BLOOD SPECIMEN Ordering Facility: [facility] Address: [address] [place] [address] Performed By: #### 5 0190-8, 6-4 #### [facility] CLIA [id number] [address] [place] [address] [place] CO2 [Moles/Vol] 31 mmol/L High 22-30 [facility] Comment on above: Order Comment: Speci men Type: BLOOD SPECIMEN Ordering Facility: [facility] Address: [address] [place] [address] Performed By: #### 5 0190-8, 6-4 #### [facility] CLIA [id number] [address] [place] [address] OF [facility] Creatinine [Mass/Vol] 1.53 mg/dL High 0.58-0.96 [facility] Comment on above: Order Comment: Speci men Type: BLOOD SPECIMEN Ordering Facility: [facility] Address: [address] [place] [address] Performed By: #### 5 0190-8, 2275-4 #### [facility] CLIA [id number] [address] [place] [address] OF [facility] ESTIMATED GLOMERULAR FILTRATION RATE 36 mL/min/1.73m??? Low >=60 [facility] Comment on above: Order Comment: Speci men Type: BLOOD SPECIMEN Ordering Facility: [facility] Address: [address] [place] [address] Result Comment: Maru mated Glomerular Filtration Rate (eGFR) is calculated using the 2020 CKD-EPI creatinine equation. This equation utilizes serum creatinine, sex, and age as parameters. The creatinine assay has traceable calibration to isotope dilution-mass spectrometry. Refer to KDIGO guidelines for clinical interpretation. In patients with unstable renal function, e.g. those with acute kidney injury, the eGFR may not accurately reflect actual GFR. Performed By: #### 5 0190-8, 2275-4 #### [facility] CLIA [id number] [address] [place] [address] [place] Glucose [Mass/Vol] 149 mg/dL High 74-99 [facility] Comment on above: Order Comment: Speci men Type: BLOOD SPECIMEN Ordering Facility: [facility] Address: [address] [place] [address] Result Comment: The [place] Diabetes Association (ADA) provides guidance for cutoff values for fasting glucose and random glucose. The ADA defines fasting as no caloric intake for at least 8 hours. Fasting plasma glucose results between 100 to 125 mg/dL indicate increased risk for diabetes (prediabetes). Fasting plasma glucose results greater than or equal to 126 mg/dL meet the criteria for diagnosis of diabetes. In the absence of unequivocal hyperglycemia, results should be confirmed by repeat testing. In a patient with classic symptoms of hyperglycemia or hyperglycemic crisis, random plasma glucose results greater than or equal to 200 mg/dL meet the criteria for diagnosis of diabetes. Reference: Standards of Medical Care in Diabetes 2016, Citizen Of [place] [employer]. Diabetes Care. 2016.39(Suppl 1). Performed By: #### 5 0190-8, 2276-02 #### [facility] CLIA [id number] [address] [place] [address] [place] Potassium [Moles/Vol] 4.3 mmol/L Normal 3.7-5.1 [facility] Comment on above: Order Comment: Speci men Type: BLOOD SPECIMEN Ordering Facility: [facility] Address: [address] Performed By: #### 5 0190-8, 2275- #### [facility] CLIA [id number] [address] [place] [address] [place] Protein [Mass/Vol] 7.0 g/dL Normal 6.3-8.0 [facility] Comment on above: Order Comment: Alexii men Type: BLOOD SPECIMEN Ordering Facility: [facility] Address: [address] [place], [place] [id number] Performed By: #### 5 0190-8, 2275-4 #### [facility] CLIA [id number] [address] [place] [address] [place] Sodium [Moles/Vol] 142 mmol/L Normal 136-144 [facility] Comment on above: Order Comment: Speci men Type: BLOOD SPECIMEN Ordering Facility: [facility] Address: [address] [place], [place] [id number] Performed By: #### 5 0190-8, 2275-4 #### [facility] CLIA [id number] [address] [place] [address] [place] Urea nitrogen [Mass/Vol] 42 mg/dL High 7-21 [facility] Comment on above: Order Comment: Speci men Type: BLOOD SPECIMEN Ordering Facility: [facility] Address: [address] [place], [place] [id number] Performed By: #### 5 0190-8, 4 #### [facility] CLIA [id number] [address] [place] [address] [place] Ferritin SerPl-ncon 2022 Ferritin [Mass/Vol] 97.3 ng/mL Normal 14.7-205.1 [facility] Comment on above: Order Comment: Speci men Type: BLOOD SPECIMEN Ordering Facility: [facility] Address: [address] [place], [place] [id number] Performed By: #### 5 0190-8, 2276-02 #### [facility] CLIA [id number] [facility] [place] [address] [place] Iron and Iron binding capaci ty panelon 05-01-2023 Iron [Mass/Vol] 68 ug/dL Normal 41-186 [facility] Comment on above: Order Comment: Speci men Type: BLOOD SPECIMEN Ordering Facility: [facility] Address: [address] [place], [place] [id number] Performed By: #### 5 0190-8, 6-4 #### [facility] CLIA [id number] [address] [place] [address] [place] Iron binding capacity [Mass/Vol] 387 ug/dL High 232-386 [facility] Comment on above: Order Comment: Speci men Type: BLOOD SPECIMEN Ordering Facility: [facility] Address: [address] [place] [address] Performed By: #### 5 0190-8, 6-4 #### [facility] CLIA [id number] [address] [place] [address] [place] Iron/TIBC [Molar ratio] 17.6 % Normal 15.0-57.0 [facility] Comment on above: Order Comment: Speci men Type: BLOOD SPECIMEN Ordering Facility: [facility] Address: [address] [place] [address] Performed By: #### 5 0190-8, 2275-4 #### [facility] [place] [id number] [address] [place] [address] [place] CA cardiac event monitoron 0 04-24-2023 [place] [address] Cardiac Event Monitor Signed Patient: Anh Tejeda MR#: [id number] : 1950 Acct:[id number] Age/Sex: 72 / F ADM Date: 03/13/23 Loc: Room: Type: [facility] Attending Dr: Georgina Prieto Adult ANJELBC Copies to: DENISE Lara MD, [facility] Ordering Provider: DENISE Lara Date of Service: 03/13/23 CA/CA cardiac event monitor: 30 day monitor ORDERED BY: LINDY Amato INDICATIONS: A 72-year-old patient with syncope. The patient was monitored from 03/13/2023 to 04/11/2023. Three tracings were sent for review. None were symptomatic. All tracings revealed normal sinus rhythm with a heart rate of 72-77 beats per minute. CONCLUSION: A 30-day event monitor revealed no cardiac arrhythmias and normal sinus rhythm in the 3 tracings sent for review with no symptoms noted. No previous studies are available for comparison. Transcribed By: CHAN 04/25/23 1231 Dictated By: Karl Padilla MD, [facility] 04/24/23 1551 Signed By: 05/06/23 1445 [facility] Physician Orderon 04-23-2023 Physician Order [id number]:127 [facility] Consent for Treatmenton Consent for Treatment [id number]:127 Normal [facility] General Surgery Office/Clini c Noteon 04-16-2023 General Surgery Office/Clinic Note Chief Complaint nausea, anemia, elevated LFT's HPI Staff Patient is a(n) 72 year old female who presents today for a(n) 3 month follow up. US, GES and labs completed. History of Present Illness Anh Tejeda is a 72-year-old white female who presents today for a 3-month follow-up evaluation. Her last visit with us was on 12/2022. She was evaluated for anemia and chronic GERD. EGD was done in 2021 and showed a normal esophagus, stomach, and duodenum except for fundic gland polyps. She was started on Prilosec. The heartburn has improved since starting the medication. Her colonoscopy from 2021 showed a small polyp resected from the rectum, tubular adenoma, diverticulosis, and hemorrhoids. Her hemoglobin improved from 9.1 last visit to 11.3. She denies taking iron supplements. The last lab work showed that her magnesium was low. She was taking magnesium but discontinued taking it because it made her nauseous. She quit taking it for 3 days and then tried again and had the same reaction. She denies any chronic itching. The patient or their guardian verbally consented to allow [facility] to record this visit. Review of Systems PHQ Score Initial Depression Screen Score: 0 Constitutional: No fever, no chills, no sweats, no weakness. Skin: No jaundice, no rash, no lesions, no petechiae. ENMT: No ear pain, no sore throat, no congestion, no hoarseness. Respiratory: No shortness of breath, no cough, no orthopnea, no wheezing. Cardiovascular: No chest pain, no palpitations, no edema. Gastrointestinal: No nausea, no vomiting, no diarrhea, no constipation, no GI bleeding, no abdominal pain, no dysphagia, no bloating, no heartburn. Genitourinary: No dysuria, no hematuria, no discharge, no pain. Musculoskeletal: No back pain, no trauma. Neurologic: No numbness, no sleeping problems. Additional ROS info: Except as noted in the above Review of Systems and in the History of Present Illness all other systems have been reviewed and are negative or noncontributory. Physical Exam Vitals & Measurements HR: 82(Peripheral) RR: 16 BP: 127/75 SpO2: 96% HT: 63 in HT: 160 cm WT: 93 kg WT: 204.6 lb BMI: 36.33 Constitutional: Appearance: well developed. Skin: Inspection: no rashes, ulcers, icterus, or telangiectasias. Eyes: Conjunctivae/lids: normal conjunctivae and lids. ENMT: Hearing: within normal limits. Lips/Teeth/Gums: normal oral mucosa. Neck: Neck: normal motion, central trachea. Respiratory: Percussion: thorax norm resonant. Auscultation: normal breath sounds; no rubs, wheezes, rale, or rhonchi. Cardiovascular: Auscultation: normal rhythm, S1 and S2; no rubs, murmurs, or gallop. Peripheral: no edema. Gastrointestinal/Abdomen: Abdomen: normal consistency and bowel sounds; no tenderness or masses. Liver/Spleen: normal size and consistency, not palpable. Rectal: deferred. Musculoskeletal: Gait/Station: normal gait. Assessment/Plan 1. 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 Her anemia has been improving. Her hemoglobin improved from 9.1 to 11.3. I advised her to take a daily iron supplement for a total of 3 months. 2. Chronic GERD (K21.9: Gastro-esophageal reflux disease without esophagitis) Well controlled with antacid. I advised continuing with antacid daily as needed for heartburn. 3. Fatty liver (K76.0: Fatty (change of) liver, not elsewhere classified) The patient was noted to have mildly elevated alkaline phosphate with fatty liver on ultrasound. She has a history of cholecystectomy. I advised her to lose 10 percent of body weight. We will proceed with Fibro Scan to assess for fibrosis score. 4. Low magnesium level (R79.0: Abnormal level of blood mineral) I advised to start magnesium supplements daily. Documentation services were performed after patient or guardian consented to allow Iris Gonzalez to record this visit. FARIDEH qi specialist and provider reviewed before signing. FARIDEH: Dolores Anderson. Pasted by Chelsea Soto Follow-up No qualifying data available Problem List/Past Medical History Ongoing Anemia Anemia due to GI blood loss B12 deficiency Chronic GERD Diabetes Diverticulosis Elevated alkaline phosphatase level Fatty liver Fundic gland polyps of stomach, benign Hemorrhoids History of rectal polyps Hyperlipidemia Hyperlipidemia Low magnesium level Nausea Polyneuropathy Rectal polyp Restless legs Type 2 diabetes mellitus without complication Historical No qualifying data Procedure/Surgical History Colonoscopy (06/12/2022), Esophagogastroduodenoscopy (06/12/2022), Scar management. Medications allopurinol 100 mg Tab, 100 mg= 1 tab(s), Oral, BID ascorbic acid 500 mg Tab, 500 mg= 1 tab(s), Oral, Daily aspirin 81 mg Oral EC Tab, 81 mg= 1 tab(s), Oral, Daily atenolol 50 mg T (more content not included)... Normal [facility] Comment on above: Result Comment: Elec tronically Signed By: Panchito Soto\.br\Date and Time Signed: 04/15/23 12:42 EDT\.br\Electronically Co-Signed By: Jason RUSSELL MD\.br\Date and Time Co-Signed: 04/16/23 08:41 EDT Ambulatory Visit Summaryon 0 04-15-2023 Ambulatory Visit Summary ANH TEJEDA :1950 Visit Date:04/15/2023 Ambulatory Visit Instructions Your Diagnosis Anemia due to GI blood loss Chronic GERD Fatty liver Low magnesium level Your Care Team Attending Physician - Jason RUSSELL MD Primary Care Physician - VINAY MATTA DO This Is Your Medications List allopurinol (allopurinol 100 mg Tab) ascorbic acid (ascorbic acid 500 mg Tab) aspirin (aspirin 81 mg Oral EC Tab) atenolol (atenolol 50 mg Tab) atorvastatin (atorvastatin 20 mg Tab) calcium carbonate-magnesium carbonate (MagneBind 300 oral tablet) cholecalciferol (cholecalciferol 1000 intl units oral tablet) cyanocobalamin (Vitamin B12) diclofenac (diclofenac sodium 75 mg Oral EC Tab) furosemide (furosemide 20 mg Tab) furosemide (furosemide 20 mg Tab) gabapentin (gabapentin 300 mg Cap) glimepiride (glimepiride 2 mg Tab) hydrochlorothiazide-lisinop ril (hydrochlorothiazide-lisino pril 12.5 mg-20 mg Tab) metformin (metformin 1000 mg oral tablet) omeprazole (omeprazole 20 mg Cap-DR) ropinirole (ropinirole 0.5 mg Tab) Procedures Performed Colonoscopy (06/12/2022), Esophagogastroduodenoscopy (06/12/2022), Scar management. Discharge Vitals Heart Rate (Peripheral) 82 Respiratory Rate 16 Blood Pressure 127/75 Height 160 cm Height 63 in Weight 93 kg Weight 204.6 lb BMI 36.33 Medications What How Much When Instructions Unchanged allopurinol (allopurinol 100 mg Tab) 1 Tablets By Mouth 2 times a day Unchanged ascorbic acid (ascorbic acid 500 mg Tab) 1 Tablets By Mouth Every day Unchanged aspirin (aspirin 81 mg Oral EC Tab) 1 Tablets By Mouth Every day Unchanged atenolol (atenolol 50 mg Tab) 1 Tablets By Mouth Every day Unchanged atorvastatin (atorvastatin 20 mg Tab) 1 Tablets By Mouth At bedtime Unchanged calcium carbonate-magnesium carbonate (MagneBind 300 oral tablet) 1 Tablets By Mouth Every day Unchanged cholecalciferol (cholecalciferol 1000 intl units oral tablet) 1 Tablets By Mouth Every day Unchanged cyanocobalamin (Vitamin B12) Unchanged diclofenac (diclofenac sodium 75 mg Oral EC Tab) 1 Tablets By Mouth Every day Unchanged furosemide (furosemide 20 mg Tab) Unchanged furosemide (furosemide 20 mg Tab) 1 Tablets By Mouth Every day Unchanged gabapentin (gabapentin 300 mg Cap) 3 Capsules By Mouth At bedtime Unchanged glimepiride (glimepiride 2 mg Tab) 1 Tablets By Mouth 2 times a day Unchanged hydrochlorothiazide-lisinop ril (hydrochlorothiazide-lisino pril 12.5 mg-20 mg Tab) 1 Tablets By Mouth Every day Unchanged metformin (metformin 1000 mg oral tablet) 1 Tablets By Mouth Twice a day (with meals) Unchanged omeprazole (omeprazole 20 mg Cap-DR) Unchanged ropinirole (ropinirole 0.5 mg Tab) 2 Tablets By Mouth At bedtime Allergies Tylenol with Codeine #3 (Upset stomach) codeine (Unknown, Dizziness) Problems Ongoing - Any problem that you are currently receiving treatment for. Anemia Anemia due to GI blood loss B12 deficiency Chronic GERD Diabetes Diverticulosis Elevated alkaline phosphatase level Fatty liver Fundic gland polyps of stomach, benign Hemorrhoids History of rectal polyps Hyperlipidemia Hyperlipidemia Low magnesium level Nausea Polyneuropathy Rectal polyp Restless legs Type 2 diabetes mellitus without complication Normal [facility] Gastroenterology Office/Clin ic Noteon 04-15-2023 Gastroenterology Office/Clinic Note Chief Complaint nausea, anemia, elevated LFT's HPI Staff Patient is a(n) 72 year old female who presents today for a(n) 3 month follow up. US, GES and labs completed. History of Present Illness Anh Tejeda is a 72-year-old white female who presents today for a 3-month follow-up evaluation. Her last visit with us was on 12/2022. She was evaluated for anemia and chronic GERD. EGD was done in 2021 and showed a normal esophagus, stomach, and duodenum except for fundic gland polyps. She was started on Prilosec. The heartburn has improved since starting the medication. Her colonoscopy from 2021 showed a small polyp resected from the rectum, tubular adenoma, diverticulosis, and hemorrhoids. Her hemoglobin improved from 9.1 last visit to 11.3. She denies taking iron supplements. The last lab work showed that her magnesium was low. She was taking magnesium but discontinued taking it because it made her nauseous. She quit taking it for 3 days and then tried again and had the same reaction. She denies any chronic itching.Constitutional: Appearance: well developed. Skin: Inspection: no rashes, ulcers, icterus, or telangiectasias. Eyes: Conjunctivae/lids: normal conjunctivae and lids. ENMT: Hearing: within normal limits. Lips/Teeth/Gums: normal oral mucosa. Neck: Neck: normal motion, central trachea. Respiratory: Percussion: thorax norm resonant. Auscultation: normal breath sounds; no rubs, wheezes, rale, or rhonchi. Cardiovascular: Auscultation: normal rhythm, S1 and S2; no rubs, murmurs, or gallop. Peripheral: no edema. Gastrointestinal/Abdomen: Abdomen: normal consistency and bowel sounds; no tenderness or masses. Liver/Spleen: normal size and consistency, not palpable. Rectal: deferred. Musculoskeletal: Gait/Station: normal gait. Review of Systems PHQ Score Initial Depression Screen Score: 0 Constitutional: No fever, no chills, no sweats, no weakness. Skin: No jaundice, no rash, no lesions, no petechiae. ENMT: No ear pain, no sore throat, no congestion, no hoarseness. Respiratory: No shortness of breath, no cough, no orthopnea, no wheezing. Cardiovascular: No chest pain, no palpitations, no edema. Gastrointestinal: No nausea, no vomiting, no diarrhea, no constipation, no GI bleeding, no abdominal pain, no dysphagia, no bloating, no heartburn. Genitourinary: No dysuria, no hematuria, no discharge, no pain. Musculoskeletal: No back pain, no trauma. Neurologic: No numbness, no sleeping problems. Additional ROS info: Except as noted in the above Review of Systems and in the History of Present Illness all other systems have been reviewed and are negative or noncontributory. Physical Exam Vitals & Measurements HR: 82(Peripheral) RR: 16 BP: 127/75 SpO2: 96% HT: 63 in HT: 160 cm WT: 93 kg WT: 204.6 lb BMI: 36.33 Constitutional: Appearance: well developed. Skin: Inspection: no rashes, ulcers, icterus, or telangiectasias. Eyes: Conjunctivae/lids: normal conjunctivae and lids. ENMT: Hearing: within normal limits. Lips/Teeth/Gums: normal oral mucosa. Neck: Neck: normal motion, central trachea. Respiratory: Percussion: thorax norm resonant. Auscultation: normal breath sounds; no rubs, wheezes, rale, or rhonchi. Cardiovascular: Auscultation: normal rhythm, S1 and S2; no rubs, murmurs, or gallop. Peripheral: no edema. Gastrointestinal/Abdomen: Abdomen: normal consistency and bowel sounds; no tenderness or masses. Liver/Spleen: normal size and consistency, not palpable. Rectal: deferred. Musculoskeletal: Gait/Station: normal gait. Assessment/Plan 1. 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 Her anemia has been improving. Her hemoglobin improved from 9.1 to 11.3. I advised her to take a daily iron supplement for a total of 3 months. 2. Chronic GERD (K21.9: Gastro-esophageal reflux disease without esophagitis) Well controlled with antiacid. I advised continuing with antiacid daily as needed for heartburn. 3. Fatty liver (K76.0: Fatty (change of) liver, not elsewhere classified) The patient was noted to have mildly elevated alkaline phosphate with fatty liver on ultrasound. She has a history of cholecystectomy. I advised her to lose 10 percent of body weight. We will proceed with Fibro Scan to assess for fibrosis score. 4. Low magnesium level (R79.0: Abnormal level of blood mineral) I advised to start magnesium supplements daily. ATTESTATION: Documentation services were performed after patient or guardian consented to allow [employer] to record this visit. FARIDEH qi specialist and provider reviewed before signing. FARIDEH: Dolores Anderson. Follow-up No qualifying data available Problem List/Past Medical History Ongoing Anemia Anemia due to GI blood loss B12 deficiency Chronic GERD Diabetes Diverticulosis Elevated alkali (more content not included)... Normal [facility] Comment on above: Result Comment: Elec tronically Signed By: Frieda Barajas\.br\Date and Time Signed: 04/15/23 12:50 EDT\.br\Electronically Co-Signed By: Jason RUSSELL MD Other Comment: multi ple sent CBC AUTO DIFFon 03-27-2023 BASO # 0.0 103/ul Normal 0.0-0.1 [facility] Comment on above: Performed By: #### C BC #### [facility] [address] [address] [address] Anamika Varghese Basophils/100 WBC (Bld) 0.3 % Normal 0.2-2.0 [facility] Comment on above: Performed By: #### C BC #### [facility] [address] [place] [address] Dr. Anamika Varghese EO # 0.1 103/ul Normal 0.0-0.7 [facility] Comment on above: Performed By: #### C BC #### [facility] [address] [place] [address] Dr. Anamika Varghese Eosinophils/100 WBC (Bld) 1.7 % Normal 0.9-7.0 [facility] Comment on above: Performed By: #### C BC #### [facility] [address] [place] [address] Dr. Anamika Varghese Erythrocyte distribution width (RBC) [Ratio] 15.4 % Critically high 11.0-15.0 [facility] Comment on above: Performed By: #### C BC #### [facility] [address] [place] [address] Dr. Anamika Varghese Hematocrit (Bld) [Volume fraction] 32.2 % Critically low 36.0-48.0 [facility] Comment on above: Performed By: #### C BC #### [facility] [address] [place] [address] Dr. Anamika Varghese Hemoglobin (Bld) [Mass/Vol] 10.9 g/dL Critically low 12.0-16.0 [facility] Comment on above: Performed By: #### C BC #### [facility] [address] [place] [address] Dr. Anamika Varghese IG # 0.02 10e3/ul Normal 0.00-0.03 [facility] Comment on above: Performed By: #### C BC #### [facility] [address] [place] [address] Dr. Anamika Varghese IG % 0.3 % Normal 0.0-0.5 [facility] Comment on above: Performed By: #### C BC #### [facility] [address] [place] [address] Dr. Anamika Varghese LYMPH # 1.5 103/ul Normal 1.2-3.8 [facility] Comment on above: Performed By: #### C BC #### [facility] [address] [place] [address] Dr. Anamika Varghese Lymphocytes/100 WBC (Bld) 25.0 % Normal 20.5-60.0 [facility] Comment on above: Performed By: #### C BC #### [facility] [address] [place] [address] Dr. Anamika Varghese MANUAL DIFF REQ NO Normal [facility] Comment on above: Performed By: #### C BC #### [facility] [address] [place] [address] Dr. Anamika Varghese MCH (RBC) [Entitic mass] 29.0 pg Normal 26.7-34.0 [facility] Comment on above: Performed By: #### C BC #### [facility] [address] [place] [address] Dr. Anamika Varghese MCHC (RBC) [Mass/Vol] 33.9 g/dL Normal 29.9-35.2 [facility] Comment on above: Performed By: #### C BC #### [facility] [address] [place] [address] Dr. Anamika Varghese MCV (RBC) [Entitic vol] 85.6 fL Normal 81.0-99.0 [facility] Comment on above: Performed By: #### C BC #### [facility] [address] [place] [address] Dr. Anamika Varghese MONO # 0.3 103/ul Normal 0.3-0.8 [facility] Comment on above: Performed By: #### C BC #### [facility] [address] [place] [address] Dr. Anamika Varghese Monocytes/100 WBC (Bld) 4.5 % Normal 1.7-12.0 [facility] Comment on above: Performed By: #### C BC #### [facility] [address] [place] [address] Dr. Anamika Varghese NEUT # 4.1 103/ul Normal 1.4-6.5 [facility] Comment on above: Performed By: #### C BC #### [facility] [address] [place] [address] Dr. Anamika Varghese Neutrophils/100 WBC (Bld) 68.2 % Normal 43.0-75.0 [facility] Comment on above: Performed By: #### C BC #### [facility] [address] [place] [address] Dr. Anamika Varghese Platelet mean volume (Bld) [Entitic vol] 8.9 fL Critically low 9.5-13.5 [facility] Comment on above: Performed By: #### C BC #### [facility] [address] [place] [address] Dr. Anamika Varghese PLT 172 103/ul Normal 150-450 [facility] Comment on above: Performed By: #### C BC #### [facility] [address] [place] [address] Dr. Anamika Varghese RBC 3.76 106/ul Critically low 4.20-5.40 [facility] Comment on above: Performed By: #### C BC #### [facility] [address] [place] [address] Dr. Anamika Varghese WBC 6.0 103/ul Normal 4.0-11.0 [facility] Comment on above: Performed By: #### C BC #### [facility] [address] [place] [address] Dr. Anamika Varghese PROF 14(COMP METB)on 023 Albumin [Mass/Vol] 3.5 g/dL Normal 3.4-5.0 [facility] Comment on above: Performed By: #### F ETIBC, FERR, B12FOL #### [facility] [address] [place] [address] Dr. Anamika Varghese Albumin/Globulin [Mass ratio] 1.0 {ratio} Normal [facility] Comment on above: Performed By: #### F ETIBC, FERR, B12FOL #### [facility] [address] [place] [address] Dr. Anamika Varghese ALP [Catalytic activity/Vol] 109 U/L Normal 46-116 [facility] Comment on above: Performed By: #### F ETIBC, FERR, B12FOL #### [facility] [address] [address] [address] Anamika Varghese ALT [Catalytic activity/Vol] 34 U/L Normal 14-59 [facility] [facility] Comment on above: Performed By: #### F ETIBC, FERR, B12FOL #### [facility] [address] [place] [address] Dr. Anamika Varghese Anion gap [Moles/Vol] 13.8 mmol/L Normal [facility] Comment on above: Performed By: #### F ETIBC, FERR, B12FOL #### [facility] [address] [place] [address] Dr. Anamika Varghese AST [Catalytic activity/Vol] 20 U/L Normal 15-37 [facility] Comment on above: Performed By: #### F ETIBC, FERR, B12FOL #### [facility] [address] [place] [address] Dr. Anamika Varghese Bilirubin [Mass/Vol] 0.4 mg/dL Normal 0.2-1.0 [facility] Comment on above: Performed By: #### F ETIBC, FERR, B12FOL #### [facility] [address] [place] [address] Dr. Anamika Varghese Calcium [Mass/Vol] 8.7 mg/dL Normal 8.5-10.1 [facility] Comment on above: Performed By: #### F ETIBC, FERR, B12FOL #### [facility] [address] [place] [address] Dr. Anamika Varghese Chloride [Moles/Vol] 107 mmol/L Normal 98-107 [facility] Comment on above: Performed By: #### F ETIBC, FERR, B12FOL #### [facility] [address] [place] [address] Dr. Anamika Varghese CO2 [Moles/Vol] 28.2 mmol/L Normal 21.0-32.0 [facility] Comment on above: Performed By: #### F ETIBC, FERR, B12FOL #### [facility] [address] [address] [address] Anamika Varghese Creatinine [Mass/Vol] 1.27 mg/dL Critically high 0.55-1.02 [facility] Comment on above: Performed By: #### F ETIBC, FERR, B12FOL #### [facility] [address] [place] [address] Dr. Anamika Varghese EGFR-AF MONEGASQUE 50 mL/min/1.73m2 Critically low >=60 [facility] Comment on above: Performed By: #### F ETIBC, FERR, B12FOL #### [facility] [address] [address] [address] Anamika Varghese EGFR-NON AF MONEGASQUE 41 mL/min/1.73m2 Critically low >=60 [facility] Comment on above: Performed By: #### F ETIBC, FERR, B12FOL #### [facility] [address] [place] [address] Dr. Anamika Varghese Globulin (S) [Mass/Vol] 3.6 g/dL Normal [facility] Comment on above: Performed By: #### F ETIBC, FERR, B12FOL #### [facility] [address] [address] [address] Anamika Varghese Glucose [Mass/Vol] 116 mg/dL Critically high 74-106 [facility] Comment on above: Performed By: #### F ETIBC, FERR, B12FOL #### [facility] [address] [place] [address] Dr. Anamika Varghese Potassium [Moles/Vol] 4.0 mmol/L Normal 3.5-5.1 [facility] Comment on above: Performed By: #### F ETIBC, FERR, B12FOL #### [facility] [address] [place] [address] Dr. Anamika Varghese Protein [Mass/Vol] 7.1 g/dL Normal 6.4-8.2 [facility] Comment on above: Performed By: #### F ETIBC, FERR, B12FOL #### [facility] [address] [place] [address] Dr. Anamika Varghese Sodium [Moles/Vol] 145 mmol/L Normal 136-145 [facility] Comment on above: Performed By: #### F ETIBC, FERR, B12FOL #### [facility] [address] [address] [address] Anamika Varghese Urea nitrogen [Mass/Vol] 24.0 mg/dL Critically high 7.0-18.0 [facility] Comment on above: Performed By: #### F ETIBC FERR, B12FOL #### [facility] [address] [address] [address] Anamika Varghese Urea nitrogen/Creatinine [Mass ratio] 18.9 mg/mg Normal [facility] Comment on above: Performed By: #### F ETIBC, FERR, B12FOL #### [facility] [address] [address] [address] Anamika Varghese Basic Metabolic Panelon 02-15 Anion gap [Moles/Vol] Not performed Normal 6.0-15.0 [facility] Comment on above: Performed By: #### L IPID, CMP, A1C WTH eA, CBC #### [facility] [address] [place] [address] [place] Calcium [Mass/Vol] 8.5 mg/dL Low 8.6-10.3 [facility] Comment on above: Performed By: #### L IPID, CMP, A1C WTH eA, CBC #### [facility] [address] [place] [address] [place] Chloride [Moles/Vol] 103 mmol/L Normal 98-107 [facility] Comment on above: Performed By: #### L IPID, CMP, A1C WTH eA, CBC #### [facility] [address] [place] [address] [place] CO2 [Moles/Vol] 29.6 mmol/L Normal 21.0-31.0 [facility] Comment on above: Performed By: #### L IPID, CMP, A1C WTH eA, CBC #### [facility] [address] [id number] [place] Creatinine [Mass/Vol] 1.35 mg/dL High 0.60-1.20 [facility] Comment on above: Performed By: #### L IPID, CMP, A1C WTH eA, CBC #### [facility] [address] [place] [address] [place] Creatinine Clr Calc Pharmacy 39.70 [facility] Comment on above: Result Comment: PERF ORMED BY: [place] [address] PATHOLOGIST [employer]ER THERESA MULLER M.D. Performed By: #### L IPID, CMP, A1C WTH eA, CBC #### [facility] [address] [place] [address] [place] GFR/1.73 sq M.predicted MDRD (S/P/Bld) [Vol rate/Area] 41.239 mL/min/{1.73_m2} [facility] Comment on above: Performed By: #### L IPID, CMP, A1C WTH eA, CBC #### [facility] [address] [place] [address] [place] Glucose [Mass/Vol] 130 mg/dL High 70-100 [facility] Comment on above: Result Comment: [facility] Glucose Reference Range is dependent on time and content of last meal. Glucose of more than 200 mg/dL in a nonstressed, ambulatory subject supports the diagnosis of Diabetes Mellitus. ADA recommended reference range Performed By: #### L IPID, CMP, A1C WTH eA, CBC #### [facility] [address] [place] [address] [place] Potassium Normal 3.5-5.1 [facility] Comment on above: Result Comment: Spec imen hemolyzed, redraw requested Performed By: #### L IPID, CMP, A1C WTH eA, CBC #### [facility] [address] [place] [address] [place] Sodium [Moles/Vol] 141 mmol/L Normal 136-145 [facility] Comment on above: Performed By: #### L IPID, CMP, A1C WTH eA, CBC #### [facility] [address] [place] [address] [place] Urea nitrogen [Mass/Vol] 28 mg/dL High 7-25 [facility] Comment on above: Performed By: #### L IPID, CMP, A1C WTH eA, CBC #### [facility] [address] [place] [address] [place] Basophils Auto (Bld) [#/Vol] Ordered By: Kimberly Arteaga on 03-13-2023 Basophils (Bld) [#/Vol] 0.0 10*3/uL 0.0-0.2 [facility] Basophils/100 WBC Auto (Bld) Ordered By: Kimberly Arteaga on 03-13-2023 Basophils/100 WBC (Bld) 0.4 % . [facility] Calcium [Mass/volume] in Ser um or PlasmaOrdered By: Kimberly Arteaga on 03-13-2023 Calcium [Mass/Vol] 8.5 mg/dL 8.6-10.3 [facility] Carbon dioxide, total [Moles /volume] in Serum or PlasmaOrdered By: Kimberly Arteaga on 03-13-2023 CO2 [Moles/Vol] 29.6 mmol/L 21.0-31.0 [facility] Chloride [Moles/volume] in S hilda or PlasmaOrdered By: Kimberly Arteaga on 03-13-2023 Chloride [Moles/Vol] 103 mmol/L 98-107 [facility] Complete Blood Count Auto Di ffon 03-13-2023 Basophils (Bld) [#/Vol] 0.0 10*3/uL Normal 0.0-0.2 [facility] Comment on above: Result Comment: PERF ORMED BY: [facility] [address] [place] [address] PATHOLOGIST [employer]ER THERESA MULLER M.D. Performed By: #### L IPID, BMP, CBC #### [facility] [address] [place] [address] [place] Basophils/100 WBC (Bld) 0.4 % Normal . [facility] Comment on above: Performed By: #### L IPID, BMP, CBC #### [facility] [address] [place] [address] [place] Eosinophils (Bld) [#/Vol] 0.1 10*3/uL Normal 0.0-0.45 [facility] Comment on above: Performed By: #### L IPID, BMP, CBC #### [address] Eosinophils/100 WBC (Bld) 1.7 % Normal . [facility] Comment on above: Performed By: #### L IPID, BMP, CBC #### [address] Erythrocyte distribution width (RBC) [Ratio] 16.8 % High 11.9-15.3 [facility] Comment on above: Performed By: #### L IPID, BMP, CBC #### [address] Hematocrit (Bld) [Volume fraction] 32.5 % Low 34.0-46.4 [facility] Comment on above: Performed By: #### L IPID, BMP, CBC #### [address] Hemoglobin (Bld) [Mass/Vol] 10.9 g/dL Low 11.8-15.4 [facility] Comment on above: Performed By: #### L IPID, BMP, CBC #### [address] Lymphocytes (Bld) [#/Vol] 1.4 10*3/uL Normal 1.00-4.8 [facility] Comment on above: Performed By: #### L IPID, BMP, CBC #### [address] Lymphocytes/100 WBC (Bld) 28.5 % Normal . [facility] Comment on above: Performed By: #### L IPID, BMP, CBC #### [address] MCH (RBC) [Entitic mass] 28.6 pg Normal 24.7-34.3 [facility] Comment on above: Performed By: #### L IPID, BMP, CBC #### [address] [place] [address] [place] MCV (RBC) [Entitic vol] 85.3 fL Normal 80-100 [facility] Comment on above: Performed By: #### L IPID, BMP, CBC #### [address] Mean Corpuscular HGB Conc 33.5 g/dL Normal 32.0-35.0 [facility] Comment on above: Performed By: #### L IPID, BMP, CBC #### [place] [address] [place] Monocytes (Bld) [#/Vol] 0.3 10*3/uL Normal 0.0-0.8 [facility] Comment on above: Performed By: #### L IPID, BMP, CBC #### [address] Monocytes/100 WBC (Bld) 6.9 % Normal . [facility] Comment on above: Performed By: #### L IPID, BMP, CBC #### [place] [address] [place] Neutrophils (Bld) [#/Vol] 3.1 10*3/uL Normal 1.8-7.7 [facility] Comment on above: Performed By: #### L IPID, BMP, CBC #### [address] Neutrophils/100 WBC (Bld) 62.5 % Normal . [facility] Comment on above: Performed By: #### L IPID, BMP, CBC #### [place] [address] [place] NRBC% 0.1 /100{WBC} Normal 0-0.5 [facility] Comment on above: Performed By: #### L IPID, BMP, CBC #### [address] Platelet mean volume (Bld) [Entitic vol] 7.2 fL Normal 6.3-10.7 [facility] Comment on above: Performed By: #### L IPID, BMP, CBC #### [facility] [address] [place] [address] [place] Platelets (Bld) [#/Vol] 152 10*3/uL Normal 150-450 [facility] Comment on above: Performed By: #### L IPID, BMP, CBC #### [facility] [address] RBC (Bld) [#/Vol] 3.81 10*6/uL Normal 3.60-5.00 [facility] Comment on above: Performed By: #### L IPID, BMP, CBC #### [facility] [address] [place] [address] [place] WBC (Bld) [#/Vol] 5.0 10*3/uL Normal 3.8-11.6 [facility] Comment on above: Performed By: #### L IPID, BMP, CBC #### [facility] [address] Creatinine [Mass/volume] in Serum or PlasmaOrdered By: Kimberly Arteaga on 03-13-2023 Creatinine [Mass/Vol] 1.35 mg/dL 0.60-1.20 [facility] Eosinophils Auto (Bld) [#/Vo l]Ordered By: Kimberly Arteaga on 03-13-2023 Eosinophils (Bld) [#/Vol] 0.1 10*3/uL 0.0-0.45 [facility] Eosinophils/100 WBC Auto (Bl d)Ordered By: Kimberly Arteaga on 03-13-2023 Eosinophils/100 WBC (Bld) 1.7 % . [facility] Erythrocyte distribution wid th Auto (RBC) [Ratio]Ordered By: Kimberly Arteaga on 03-13-2023 Erythrocyte distribution width (RBC) [Ratio] 16.8 % 11.9-15.3 [facility] Glucose Glucometer (BldC) [M ass/Vol]Ordered By: Kimberly Arteaga on 03-13-2023 Glucose [Mass/Vol] 162 mg/dL [facility] Comment on above: Random Glucose Refer ence Range is dependent on time and content of last meal. Glucose of more than 200 mg/dL in a nonstressed, ambulatory subject supports the diagnosis of Diabetes Mellitus. Glucose Poct Glucometerson 0 03-13-2023 Glucose [Mass/Vol] 162 mg/dL Normal [facility] Comment on above: Result Comment: [place] Glucose Reference Range is dependent on time and content of last meal. Glucose of more than 200 mg/dL in a nonstressed, ambulatory subject supports the diagnosis of Diabetes Mellitus. PERFORMED BY: [facility] [address] [place] [address] PATHOLOGIST [employer] T[employer]ER THERESA MULLER M.D. Performed By: #### G LULS #### Point of Care testing , Glucose [Mass/volume] in Ser um or PlasmaOrdered By: Kimberly Arteaga on 03-13-2023 Glucose [Mass/Vol] 130 mg/dL 70-100 [facility] Comment on above: ADA recommended refe rence rangeRandom Glucose Reference Range is dependent on time and content of last meal. Glucose of more than 200 mg/dL in a nonstressed, ambulatory subject supports the diagnosis of Diabetes Mellitus. Hematocrit Auto (Bld) [Volum e fraction]Ordered By: Kimberly Arteaga on 03-13-2023 Hematocrit (Bld) [Volume fraction] 32.5 % 34.0-46.4 [facility] Hemoglobin [Mass/volume] in BloodOrdered By: Kimberly Arteaga on 03-13-2023 Hemoglobin (Bld) [Mass/Vol] 10.9 g/dL 11.8-15.4 [facility] Leukocytes [#/volume] correc remberto for nucleated erythrocytes in Blood by Automated counOrdered By: Kimberly Arteaga on 03-13-2023 WBC corrected for nucl RBC Auto (Bld) [#/Vol] 5.0 10*3/uL 3.8-11.6 [facility] Lymphocytes Auto (Bld) [#/Vo l]Ordered By: Kimberly Arteaga on 03-13-2023 Lymphocytes (Bld) [#/Vol] 1.4 10*3/uL 1.00-4.8 [facility] Lymphocytes/100 WBC Auto (Bl d)Ordered By: Kimberly Arteaga on 03-13-2023 Lymphocytes/100 WBC (Bld) 28.5 % . [facility] MCH Auto (RBC) [Entitic mass ]Ordered By: Kimberly Arteaga on 03-13-2023 MCH (RBC) [Entitic mass] 28.6 pg 24.7-34.3 [facility] MCHC Auto (RBC) [Mass/Vol]Or dered By: Kimberly Arteaga on 03-13-2023 MCHC (RBC) [Mass/Vol] 33.5 g/dL 32.0-35.0 [facility] MCV Auto (RBC) [Entitic vol] Ordered By: Kimberly Arteaga on 03-13-2023 MCV (RBC) [Entitic vol] 85.3 fL 80-100 [facility] Monocytes Auto (Bld) [#/Vol] Ordered By: Kimberly Arteaga on 03-13-2023 Monocytes (Bld) [#/Vol] 0.3 10*3/uL 0.0-0.8 [facility] Monocytes/100 WBC Auto (Bld) Ordered By: Kimberly Arteaga on 03-13-2023 Monocytes/100 WBC (Bld) 6.9 % . [facility] Neutrophils Auto (Bld) [#/Vo l]Ordered By: Kimberly Arteaga on 03-13-2023 Neutrophils (Bld) [#/Vol] 3.1 10*3/uL 1.8-7.7 [facility] Neutrophils/100 WBC Auto (Bl d)Ordered By: Kimberly Arteaga on 03-13-2023 Neutrophils/100 WBC (Bld) 62.5 % . [facility] No Panel InformationOrdered By: Kimberly Arteaga on 03-13-2023 Estimated GFR (CKD-EPI) 41.239 mL/Min [facility] Creatinine Clearance (Chem 39.70 [facility] Nucleated erythrocytes [Pres ence] in Blood by Automated countOrdered By: Kimberly Arteaga on 03-13-2023 Nucleated RBC Auto Ql (Bld) 0.1 /100{WBC} 0-0.5 [facility] Platelet mean volume Auto (B ld) [Entitic vol]Ordered By: Kimberly Arteaga on 03-13-2023 Platelet mean volume (Bld) [Entitic vol] 7.2 fL 6.3-10.7 [facility] Platelets Auto (Bld) [#/Vol] Ordered By: Kimberly Arteaga on 03-13-2023 Platelets (Bld) [#/Vol] 152 10*3/uL 150-450 [facility] Potassium [Moles/volume] in Serum or PlasmaOrdered By: Kimberly Arteaga on 03-13-2023 Potassium [Moles/Vol] 3.8 mmol/L 3.5-5.1 [facility] RBC Auto (Bld) [#/Vol]Ordere d By: Kimberly Arteaga on 03-13-2023 RBC (Bld) [#/Vol] 3.81 10*6/uL 3.60-5.00 [facility] Redraw Potassiumon Potassium [Moles/Vol] 3.8 mmol/L Normal 3.5-5.1 [facility] Comment on above: Order Comment: PREVI OUS SPECIMEN HEMOLYZED. Result Comment: PERF ORMED BY: [place] [address] PATHOLOGIST [employer] TENDER THERESA MULLER M.D. Performed By: #### L IPID, BMP, CBC #### [address] Serum or plasma anion gap de terminationOrdered By: Kimberly Arteaga on 03-13-2023 Anion gap [Moles/Vol] TNP [facility] Comment on above: Test not performed Sodium [Moles/volume] in Ser um or PlasmaOrdered By: Kimberly Arteaga on 03-13-2023 Sodium [Moles/Vol] 141 mmol/L 136-145 [facility] Urea nitrogen [Mass/volume] in Serum or PlasmaOrdered By: Kimberly Arteaga on 03-13-2023 Urea nitrogen [Mass/Vol] 28 mg/dL 7-25 [facility] WBC Auto (Bld) [#/Vol]Ordere d By: Kimberly Arteaga on 03-13-2023 WBC (Bld) [#/Vol] 5.0 10*3/uL 3.8-11.6 [facility] Basic Metabolic Panelon 02-15 Anion gap [Moles/Vol] Not performed Normal 6.0-15.0 [facility] Comment on above: Performed By: #### L IPID, BMP, CBC #### [facility] [address] [place] [address] [place] Calcium [Mass/Vol] 7.9 mg/dL Low 8.6-10.3 [facility] Comment on above: Performed By: #### L IPID, BMP, CBC #### [facility] [address] [place] [address] [place] Chloride [Moles/Vol] 103 mmol/L Normal 98-107 [facility] Comment on above: Performed By: #### L IPID, BMP, CBC #### [facility] [address] [place] [address] [place] CO2 [Moles/Vol] 28.1 mmol/L Normal 21.0-31.0 [facility] Comment on above: Performed By: #### L IPID, BMP, CBC #### [facility] [address] [place] [address] [place] Creatinine [Mass/Vol] 1.74 mg/dL High 0.60-1.20 [facility] Comment on above: Performed By: #### L IPID, BMP, CBC #### [facility] [address] [place] [address] [place] Creatinine Clr Calc Pharmacy 30.80 [facility] Comment on above: Performed By: #### L IPID, BMP, CBC #### [facility] [address] [place] [address] [place] GFR/1.73 sq M.predicted MDRD (S/P/Bld) [Vol rate/Area] 30.413 mL/min/{1.73_m2} [facility] Comment on above: Performed By: #### L IPID, BMP, CBC #### [facility] [address] [place] [address] [place] Glucose [Mass/Vol] 121 mg/dL High 70-100 [facility] Comment on above: Result Comment: [facility] Glucose Reference Range is dependent on time and content of last meal. Glucose of more than 200 mg/dL in a nonstressed, ambulatory subject supports the diagnosis of Diabetes Mellitus. ADA recommended reference range Performed By: #### L IPID, BMP, CBC #### [facility] [address] [id number] [facility] Potassium Normal 3.5-5.1 [facility] Comment on above: Result Comment: Spec imen hemolyzed, redraw requested Performed By: #### L IPID, BMP, CBC #### [facility] [address] [id number] [facility] Sodium [Moles/Vol] 141 mmol/L Normal 136-145 [facility] Comment on above: Performed By: #### L IPID, BMP, CBC #### [facility] [address] [id number] [facility] Urea nitrogen [Mass/Vol] 38 mg/dL High 7-25 [facility] Comment on above: Performed By: #### L IPID, BMP, CBC #### [facility] [address] [id number] [facility] Cholesterol [Mass/volume] in Serum or PlasmaOrdered By: Kimberly Arteaga on 03-12-2023 Cholesterol [Mass/Vol] 118 mg/dL 140-200 [facility] Comment on above: Chol less than 200 m g/dl low riskChol 201-239 mg/dl borderline riskChol 240 mg/dl and greater high risk Cholesterol in LDL Calc [Mas s/Vol]Ordered By: Kimberly Arteaga on 03-12-2023 Cholesterol in LDL [Mass/Vol] 51 mg/dL 0-100 [facility] Comment on above: LDL ATP III CLASSIFI CATIONLDL less than 100 mg/dL OptimalLDL 100-129 mg/dL Near or above optimalLDL 130-159 mg/dL Borderline highLDL 160-189 mg/dL HighLDL greater than 189 mg/dL Very high Cholesterol in VLDL Calc [Ma ss/Vol]Ordered By: Kimberly Arteaga on 03-12-2023 Cholesterol in VLDL [Mass/Vol] 32 mg/dL [facility] Complete Blood Count Auto Di ffon 03-12-2023 Basophils (Bld) [#/Vol] 0.0 10*3/uL Normal 0.0-0.2 [facility] Comment on above: Result Comment: PERF ORMED BY: [place] [address] PATHOLOGIST [employer] TENDER THERESA MULLER M.D. Performed By: #### L IPID, BMP, CBC #### [facility] [address] [place] [address] [place] Basophils/100 WBC (Bld) 0.3 % Normal . [facility] Comment on above: Performed By: #### L IPID BMP, CBC #### [facility] [address] [place] [address] [place] Eosinophils (Bld) [#/Vol] 0.1 10*3/uL Normal 0.0-0.45 [facility] Comment on above: Performed By: #### L IPID BMP, CBC #### [facility] [address] [place] [address] [place] Eosinophils/100 WBC (Bld) 2.1 % Normal . [facility] Comment on above: Performed By: #### L IPID BMP, CBC #### [facility] [address] [place] [address] [place] Erythrocyte distribution width (RBC) [Ratio] 17.1 % High 11.9-15.3 [facility] Comment on above: Performed By: #### L IPID, BMP, CBC #### [facility] [address] [place] [address] [place] Hematocrit (Bld) [Volume fraction] 28.7 % Low 34.0-46.4 [facility] Comment on above: Performed By: #### L IPID, BMP, CBC #### [facility] [address] [place] [address] [place] Hemoglobin (Bld) [Mass/Vol] 9.7 g/dL Low 11.8-15.4 [facility] Comment on above: Performed By: #### L IPID, BMP, CBC #### [facility] [address] [place] [address] [place] Lymphocytes (Bld) [#/Vol] 1.3 10*3/uL Normal 1.00-4.8 [facility] Comment on above: Performed By: #### L IPID, BMP, CBC #### [facility] [address] [place] [address] [place] Lymphocytes/100 WBC (Bld) 32.1 % Normal . [facility] Comment on above: Performed By: #### L IPID, BMP, CBC #### [address] MCH (RBC) [Entitic mass] 28.9 pg Normal 24.7-34.3 [facility] Comment on above: Performed By: #### L IPID, BMP, CBC #### [address] MCV (RBC) [Entitic vol] 85.2 fL Normal 80-100 [facility] Comment on above: Performed By: #### L IPID, BMP, CBC #### [address] Mean Corpuscular HGB Conc 33.9 g/dL Normal 32.0-35.0 [facility] Comment on above: Performed By: #### L IPID, BMP, CBC #### [place] [address] [place] Monocytes (Bld) [#/Vol] 0.3 10*3/uL Normal 0.0-0.8 [facility] Comment on above: Performed By: #### L IPID, BMP, CBC #### [place] [address] [place] Monocytes/100 WBC (Bld) 6.6 % Normal . [facility] Comment on above: Performed By: #### L IPID, BMP, CBC #### [facility] [address] [place] [address] [place] Neutrophils (Bld) [#/Vol] 2.4 10*3/uL Normal 1.8-7.7 [facility] Comment on above: Performed By: #### L IPID, BMP, CBC #### [facility] [address] Neutrophils/100 WBC (Bld) 58.9 % Normal . [facility] Comment on above: Performed By: #### L IPID, BMP, CBC #### [facility] [address] NRBC% 0.1 /100{WBC} Normal 0-0.5 [facility] Comment on above: Performed By: #### L IPID, BMP, CBC #### [facility] [address] Platelet mean volume (Bld) [Entitic vol] 7.4 fL Normal 6.3-10.7 [facility] Comment on above: Performed By: #### L IPID, BMP, CBC #### [address] Platelets (Bld) [#/Vol] 117 10*3/uL Significant change down 150-450 [facility] [facility] Comment on above: Performed By: #### L IPID, BMP, CBC #### [address] RBC (Bld) [#/Vol] 3.36 10*6/uL Low 3.60-5.00 [facility] Comment on above: Performed By: #### L IPID, BMP, CBC #### [facility] [address] [place] [address] WBC (Bld) [#/Vol] 4.0 10*3/uL Normal 3.8-11.6 [facility] Comment on above: Performed By: #### L IPID, BMP, CBC #### [facility] [address] [place] [address] ECH echo transthoracicon ECH echo transthoracic [facility] [address] [place] [address] Echocardiogram Signed Patient: Anh Tejeda MR#: [id number] 036 : 1950 Acct:[id number] Age/Sex: 72 / F ADM Date: 03/11/23 Loc: Room: [address] [place] [address] Type: ADM IN Attending Dr: Kimberly Arteaga MD Ordering Provider: Kimberly Arteaga MD Date of Service: 03/11/23 ECH/ECH echo transthoracic: stroke with bubble study Copies to: Karl Padilla MD, [facility] Kimberly Arteaga MD BSA: 2.0 m2 BP: 151/79 mmHg HR: 78 Reason For Study: stroke with bubble study History: COVID-19. DM. HTN. HLD. Cancer. Anemia. Family history of CHF. Interpretation Summary The left ventricular size, thickness and function are normal The left ventricular wall motion is normal. Ejection Fraction = 60-65%. A variety of Doppler measurements indicate impaired left ventricular relaxation, which is associated with grade I/IV or mild diastolic dysfunction. The left atrium appears mildly dilated. Atrial septum appears to be intact and there is no evidence of flow across the atrial septum either by colorflow Doppler or by agitated saline. No thrombus, vegetation or mass is seen. There is no prior echocardiogram noted for this patient. Procedure/Quality: A two-dimensional transthoracic echocardiogram with color flow, Doppler and injection of aggitated saline was performed. A two- dimensional transthoracic echocardiogram with color flow and Doppler was performed. The study was technically good in quality. There is no prior echocardiogram noted for this patient. Left Ventricle: The left ventricular size, thickness and function are normal. Ejection Fraction = 60-65%. A variety of Doppler measurements indicate impaired left ventricular relaxation, which is associated with grade I/IV or mild diastolic dysfunction. The left ventricular wall motion is normal. Left Atrium: The left atrium appears mildly dilated. The atrial septum appears normal. Atrial septum appears to be intact and there is no evidence of flow across the atrial septum either by colorflow Doppler or by agitated saline. Right Atrium: The right atrium appears normal in size. Right Ventricle: The right ventricular size, thickness and function are normal. Aortic Valve: The aortic valve is normal in structure and function. No aortic regurgitation is present. Mitral Valve: The mitral valve is normal in structure and function. There is trace mitral regurgitation. Tricuspid Valve: The tricuspid valve is normal in structure and function. There is trace tricuspid regurgitation. Pulmonic Valve: The pulmonic valve is normal in structure and function. Arteries: The aortic root is normal size. Pericardium/Pleura: No pericardial effusion seen. There is no pleural effusion. IVC/Hepatic Viens: The inferior vena cava is normal in size, with a normal collapsibility index. Miscellaneous: No thrombus, vegetation or mass is seen. Measurements with Normals IVSd: 0.99 cm (0.7-1.1 cm)LVIDd: 4.4 cm (3.7-5.4 cm) LVPWd: 1.0 cm (0.7-1.1 cm)LVIDs: 3.0 cm (2.3-3.6 cm) LA dimension: 4.2 cm (2.3-4.0 cm)Ao root diam: 2.9 cm(2.0-3.6 cm) asc Aorta Diam: 3.2 cm(2.1-3.4cm) Doppler with Normals RVSP(TR): 23.2 mmHg (18-35mmHg) LV V1 max: 115.4 cm/sec (0.7-1.7m/s)MV E max jimmy: 79.9 cm/sec(0.8-1.3m/s) MV A max jimmy: 123.6 cm/sec(0.0-0.0m/s) MV E/A: 0.65 (<1.5) MMode/2D Measurements Calculations TAPSE: 1.9 cm FS: 31.9 % Ao root area: LVOT diam: 2.0 cm RV S Jimmy: EDV(Teich): 6.6 cm2 LVOT area: 3.2 cm2 15.9 cm/sec 87.7 ml ESV(Teich): 34.9 ml EF(Teich): 60.2 % __ LVLd ap4: 6.6 cm SV(MOD-sp4): LAV(MOD-sp4): LA A2 area: 12.3 cm2 EDV(MOD-sp4): 44.6 ml 33.5 ml 72.3 ml LAV(MOD-sp2): LA A4 area: 15.2 cm2 LVLs ap4: 5.3 cm 26.1 ml LA length (vol): ESV(MOD-sp4): 5.6 cm 27.7 ml LA vol: 28.5 ml EF(MOD-sp4): 61.7 % LA vol index: 14.6 ml/m2 Doppler Measurements Calculations MV dec time: MV max PG: E/E' lat: 10.2 MV dec slope: 0.25 sec 64.0 mmHg E/E' med: 14.7 318.3 cm/sec2 __ Ao V2 max: LV V1 max PG: MR max jimmy: TV max P.0 mmHg 173.7 cm/sec 5.3 mmHg 398.7 cm/sec Ao max PG: LV V1 mean PG: MR max P.1 mmHg 3.1 mmHg 63.8 mmHg Ao mean PG: LV V1 mean: 7.3 mmHg 84.2 cm/sec Ao V2 mean: LV V1 VTI: 22.0 cm 130.0 cm/sec Ao V2 VTI: 36.4 cm SAM(I,D): 2.0 cm2 SAM(V,D): 2.1 cm2 __ TR max jimmy: 224.8 cm/sec TR max P.2 mmHg RAP systole: 3.0 mmHg Transcribed By: SCV Performed At: 03/12/23 1404 Signed By: Karl Padilla MD, [facility] 03/12/23 1554 Normal [facility] Glucose Poct Glucometerson 0 03-12-2023 Glucose [Mass/Vol] 303 mg/dL Normal [facility] Comment on above: Result Comment: [facility] Glucose Reference Range is dependent on time and content of last meal. Glucose of more than 200 mg/dL in a nonstressed, ambulatory subject supports the diagnosis of Diabetes Mellitus. PERFORMED BY: [place] [address] [place] [address] PATHOLOGIST [employer] MACHINE TENDER THERESA MULLER M.D. Performed By: #### L IPID, CMP, A1C WTH eA, CBC #### [facility] [address] [place] [address] [place] Glucose [Mass/Vol] 103 mg/dL Normal [facility] Comment on above: Result Comment: [place] [facility] Glucose Reference Range is dependent on time and content of last meal. Glucose of more than 200 mg/dL in a nonstressed, ambulatory subject supports the diagnosis of Diabetes Mellitus. PERFORMED BY: [place] [address] PATHOLOGIST [employer] MACHINE TENDER THERSEA MULLER M.D. Performed By: #### L IPID, BMP, CBC #### [facility] [address] [place] [address] [place] Glucose [Mass/Vol] 359 mg/dL Normal [facility] Comment on above: Result Comment: [place] [facility] Glucose Reference Range is dependent on time and content of last meal. Glucose of more than 200 mg/dL in a nonstressed, ambulatory subject supports the diagnosis of Diabetes Mellitus. PERFORMED BY: [place] [address] PATHOLOGIST [employer] MACHINE TENDER THERESA MULLER M.D. Performed By: #### L IPID, BMP, CBC #### [place] [address] [place] Glucose [Mass/Vol] 142 mg/dL Normal [facility] Comment on above: Result Comment: [place] [facility] Glucose Reference Range is dependent on time and content of last meal. Glucose of more than 200 mg/dL in a nonstressed, ambulatory subject supports the diagnosis of Diabetes Mellitus. PERFORMED BY: [place] [address] PATHOLOGIST [employer] MACHINE TENDER THERESA MULLER M.D. Performed By: #### G LULS #### Point of Care testing , Lipid Panelon 03-12-2023 Cholesterol [Mass/Vol] 118 mg/dL Low 140-200 [facility] Comment on above: Result Comment: Chol less than 200 mg/dl low risk Chol 201-239 mg/dl borderline risk Chol 240 mg/dl and greater high risk Performed By: #### L IPID, BMP, CBC #### [address] Cholesterol in HDL [Mass/Vol] 35 mg/dL Normal 35-85 [facility] Comment on above: Result Comment: HDL CHOL ATP-III CLASSIFICATION Cardiovascular Risk HDL > or equal to 60 mg/dL LOW HDL < 40 mg/dL HIGH Performed By: #### L IPID, BMP, CBC #### [address] Cholesterol.total/Chol esterol in HDL [Mass ratio] 3.4 {ratio} Normal <5.0 [facility] Comment on above: Result Comment: PERF ORMED BY: [place] [address] PATHOLOGIST [employer] MACH[employer] TENDER THERESA MULLER M.D. Performed By: #### L IPID, BMP, CBC #### [address] LDL Cholesterol,Calculated 51 mg/dL Normal 0-100 [facility] Comment on above: Result Comment: LDL ATP III CLASSIFICATION LDL less than 100 mg/dL Optimal LDL 100-129 mg/dL Near or above optimal LDL 130-159 mg/dL Borderline high LDL 160-189 mg/dL High LDL greater than 189 mg/dL Very high Performed By: #### L IPID, BMP, CBC #### [address] Triglyceride w/Reflex 160 mg/dL High 0-149 [facility] Comment on above: Result Comment: TRIG ATP III CLASSIFICATION TRIG less than 150 mg/dL Normal TRIG 150-199 mg/dL Borderline high TRIG 200-500 mg/dL High TRIG greater than 500 mg/dL Very high Standard traceable to the Center for Disease Conrtrol and Prevention (CDC) test method. Performed By: #### L IPID, BMP, CBC #### [address] VLDL CHOLESTEROL 32 mg/dL Normal [facility] Comment on above: Performed By: #### L IPID, BMP, CBC #### [address] [place] [address] [facility] MR head/brain wo conon 03-12 MR head/brain wo con [facility] [address] [place] [id number] MRI Report Signed Patient: Anh Tejeda MR#: [id number] 036 : 1950 Acct:[id number] Age/Sex: 72 / F ADM Date: 03/11/23 Loc: 3T Room: [address] [place] [address] Type: ADM IN Attending Dr: Kimberly Arteaga MD Copies to: Kimberly Arteaga MD Ordering Provider: Kimberly Arteaga MD Date of Service: 03/11/23 MR/MR head/brain wo con: cva MR head/brain wo con 03/11/2023 7:00 PM SIGN AND SYMPTOMS: Slurred speech and right-sided facial droop with tingling in right hand PROTOCOL: Multiplanar multisequence MR images of the brain were obtained without IV contrast COMPARISON: 03/11/2023 FINDINGS: Extra axial spaces: There is diffuse age-related cortical atrophy. Hemorrhage: None. Ventricular system: Within normal limits. Basal cisterns: Within normal limits and not effaced. Cerebral parenchyma: Periventricular and subcortical white matter T2 and FLAIR hyperintense signal is noted consistent with chronic microvascular ischemic changes. Midline shift: None.. Cerebellum: Within normal limits. Brainstem: Within normal limits. OTHER: Calvarium: Normal marrow signal. Vascular system: Satisfactory flow voids within the anterior and posterior circulation. Visualized Paranasal sinuses: Within normal limits. Visualized Orbits: Within normal limits. Visualized upper cervical spine: Within normal limits. Sella and skull base: Within normal limits. MR/MR head/brain wo con IMPRESSION: No acute intracranial pathology. There is diffuse age-related cortical atrophy with chronic microvascular ischemic change. Impression dictated by: Riki Garnica M.D.03/12/2023 8:58 AM Dictation Location: [place] [address] Transcribed By: [facility] 03/12/23 0858 Dictated By: Riki Garnica II, MD 03/12/23 0849 Signed By: 03/12/23857 [facility] Redraw Potassiumon 3 Potassium [Moles/Vol] 4.4 mmol/L Normal 3.5-5.1 [facility] Comment on above: Result Comment: PERF ORMED BY: [facility] [address] [place] [address] PATHOLOGIST [employer]ACHINE TENDER THERESA MULLER M.D. Performed By: #### L IPID, BMP, CBC #### [facility] [address] Serum or plasma high density lipoprotein (HDL) cholesterol measurementOrdered By: Kimberly Arteaga on 03-12-2023 Cholesterol in HDL [Mass/Vol] 35 mg/dL 35-85 [facility] Comment on above: HDL CHOL ATP-III CLA SSIFICATION Cardiovascular RiskHDL > or equal to 60 mg/dL LOWHDL < 40 mg/dL HIGH Serum or plasma total choles terol/high density lipoprotein (HDL) cholesterol mass ratOrdered By: Kimberly Arteaga on 03-12-2023 Cholesterol.total/Chol esterol in HDL [Mass ratio] 3.4 {ratio} <5.0 [facility] Triglyceride [Mass/volume] i n Serum or PlasmaOrdered By: Kimberly Arteaga on 03-12-2023 Triglyceride [Mass/Vol] 160 mg/dL 0-149 [facility] Comment on above: TRIG ATP III CLASSIF ICATIONTRIG less than 150 mg/dL NormalTRIG 150-199 mg/dL Borderline highTRIG 200-500 mg/dL High TRIG greater than 500 mg/dL Very highStandard traceable to the Center for Disease Conrtrol and Prevention (CDC) test method. Activated partial thrombopla stin time (aPTT) in platelet poor plasma by coagulation aOrdered By: Lamin Rose on 03-11-2023 aPTT Coag (PPP) [Time] 33.9 s 25.1-36.5 [facility] Automated erythrocytes count in urine sediment (number/area)Ordered By: Lamin Rose on 03-11-2023 RBC Auto (Urine sed) [#/Area] 0-1 [HPF] 0-4 [facility] Automated leukocytes count i n urine sediment (number/area)Ordered By: Lamin Rose on 03-11-2023 WBC Auto (Urine sed) [#/Area] 10-19 [HPF] 0-4 [facility] Basic Metabolic Panelon 02-15 Anion gap [Moles/Vol] 15.4 mmol/L High 6.0-15.0 [facility] Comment on above: Performed By: #### L IPID, CMP, A1C WTH eA, CBC #### [facility] [address] Calcium [Mass/Vol] 8.3 mg/dL Low 8.6-10.3 [facility] Comment on above: Performed By: #### L IPID, CMP, A1C WTH eA, CBC #### [facility] [address] Chloride [Moles/Vol] 104 mmol/L Normal 98-107 [facility] Comment on above: Performed By: #### L IPID, CMP, A1C WTH eA, CBC #### [facility] [address] CO2 [Moles/Vol] 26.9 mmol/L Normal 21.0-31.0 [facility] Comment on above: Performed By: #### L IPID, CMP, A1C WTH eA, CBC #### [facility] [address] Creatinine [Mass/Vol] 1.61 mg/dL High 0.60-1.20 [facility] Comment on above: Performed By: #### L IPID, CMP, A1C WTH eA, CBC #### [facility] [address] [place] [address] [place] Creatinine Clr Calc Pharmacy 33.67 Normal [facility] Comment on above: Result Comment: PERF ORMED BY: [place] [address] PATHOLOGIST [employer] MACHINE TENDER THERESA MULLER M.D. Performed By: #### L IPID, CMP, A1C WTH eA, CBC #### [facility] [address] [place] [address] [place] GFR/1.73 sq M.predicted MDRD (S/P/Bld) [Vol rate/Area] 33.383 mL/min/{1.73_m2} Normal [facility] Comment on above: Performed By: #### L RISHABH SMITH, A1C WTH Drake, CBC #### [facility] [address] [place] [id number] [place] Glucose [Mass/Vol] 164 mg/dL High 70-100 [facility] Comment on above: Result Comment: [facility] Glucose Reference Range is dependent on time and content of last meal. Glucose of more than 200 mg/dL in a nonstressed, ambulatory subject supports the diagnosis of Diabetes Mellitus. ADA recommended reference range Performed By: #### L RISHABH SMITH, A1C WTH Drake, CBC #### [facility] [address] [place] [id number] [place] Potassium [Moles/Vol] 4.3 mmol/L Normal 3.5-5.1 [facility] Comment on above: Performed By: #### L RISHABH SMITH, A1C WTH Drake, CBC #### [facility] [address] [place] [id number] [place] Sodium [Moles/Vol] 142 mmol/L Normal 136-145 [facility] Comment on above: Performed By: #### L RISHABH SMITH, A1C WTH eA, CBC #### [facility] [address] [place] [id number] [place] Urea nitrogen [Mass/Vol] 37 mg/dL High 7-25 [facility] Comment on above: Performed By: #### L RISHABH SMITH, A1C WTH Drake, CBC #### [facility] [address] [place] [id number] [place] Bilirubin Test strip Ql (U)O rdered By: Lamin Rose on 03-11-2023 Bilirubin Ql (U) Negative Negative [facility] CT angio neckon 03-11-2023 CT angio neck [facility] [address] [place] [address] CT Scan Report Signed Patient: Anh Tejeda MR#: [id number] 036 : 1950 Acct:[id number] Age/Sex: 72 / F ADM Date: 03/11/23 Loc: ER Room: Type: [facility] ER Attending Dr: Copies to: Lamin Rose MD Ordering Provider: Lamin Rose MD Date of Service: 03/11/23 CT/CT angio head: Stroke alert ([id number]) CT/CT angio neck: Stroke alert CT angio head, CT angio neck 03/11/2023 3:41 PM SIGNS AND SYMPTOMS: Right-sided weakness and numbness CONTRAST: 70 mL of intravenous Isovue-370 TECHNIQUE: Multi-detector CT angiography axial slices of the head were obtained before and during intravenous administration of IV contrast material. Sagittal, coronal, and 3-D reconstructions were performed and viewed on a separate workstation. CT was performed with one or more of the following dose reduction techniques: Automated exposure control, adjustment of the mA and/or kV according to patient size, or use of iterative reconstruction technique. Stenoses were measured using the NASCET criteria. COMPARISON: None. FINDINGS: CTA HEAD: The superior cerebellar arteries, posterior inferior cerebellar arteries, and the basilar artery are within normal limits. The posterior cerebral arteries are unremarkable. The intracranial segments of the internal carotid arteries are within normal limits. There are normal anterior and middle cerebral arteries. Anterior communicating artery is patent. Posterior communicating arteries are present. The deep venous system and dural venous systems appear to be patent. No bony abnormalities are appreciated. CTA NECK: Atherosclerotic changes are noted in the thoracic aorta.. The subclavian arteries are within normal limits. The vertebral arteries arise from the subclavian arteries and are normal in course and caliber up to the skull base. The common and internal carotid arteries are patent and normal in caliber. Calcified plaque is noted in the carotid bifurcations without significant stenosis. Visualized lung parenchyma is clear. Degenerative changes are noted in the cervical spine. No acute bony abnormalities are identified. The paraspinous soft tissues are within normal limits. CT/CT angio head IMPRESSION: No evidence of focal stenosis, aneurysmal dilatation, dissection or occlusion. Impression dictated by: Riki Garnica M.D.03/11/2023 4:03 PM Dictation Location: [place] [address] Transcribed By: [facility] 03/11/23 1603 Dictated By: Riki Garnica II, MD 03/11/23 1557 Signed By: 03/11/23 1604 [facility] CT head stroke alert wo cono n 03-11-2023 CT head stroke alert wo con [facility] [address] [place] [address] CT Scan Report Signed Patient: Anh Tejeda MR#: [id number] 036 : 1950 Acct:[id number] Age/Sex: 72 / F ADM Date: 03/11/23 Loc: ER Room: Type: [facility] ER Attending Dr: Copies to: Lamin Rose MD Ordering Provider: Lamin Rose MD Date of Service: 03/11/23 CT/CT head stroke alert wo con: acute stroke/neuro deficits CT head stroke alert wo con 03/11/2023 3:40 PM SIGNS AND SYMPTOMS: Right-sided weakness and numbness TECHNIQUE:Multi-detector CT axial slices of the brain were obtained without IV contrast. CT was performed with one or more of the following dose reduction techniques: Automated exposure control, adjustment of the mA and/or kV according to patient size, or use of iterative reconstruction technique. COMPARISON: None. FINDINGS: There is no shift of the midline structures, acute intracranial bleeding, mass effects, or evidence of acute ischemia. There is mild periventricular white matter hypoattenuation suggesting chronic microvascular ischemic change. The ventricular system is normal in size. The brainstem and the cerebellum are unremarkable. The visualized intraorbital contents and the infratemporal soft tissues show no acute abnormality. There is partial opacification of the left frontal sinus, left ethmoid air cells, and left sphenoid sinus. The osseous structures in the skull base and the calvarium show no abnormality. CT/CT head stroke alert wo con IMPRESSION: No acute intracranial pathology. Mild chronic microvascular ischemic changes are noted. Findings were discussed with Dr. Rose at 3:50 PM on 03/11/2023 Impression dictated by: Riki Garnica M.D.03/11/2023 3:55 PM Dictation Location: [place] [address] Transcribed By: [place] 03/11/23 6223 Dictated By: Riki Garnica II, MD 03/11/23 154 Signed By: 03/11/23 1627 [facility] Color Auto (U)Ordered By: Sobeida Rose on 03-11-2023 Color (U) Yellow Yellow [facility] Complete Blood Count Auto Di ffon 03-11-2023 Basophils (Bld) [#/Vol] 0.0 10*3/uL Normal 0.0-0.2 [facility] Comment on above: Result Comment: PERF ORMED BY: [place] [address] PATHOLOGIST [employer] MACHINE TENDER THERESA MULLER M.D. Performed By: #### L IPID, BMP, CBC #### [facility] [address] [place] [address] [place] Basophils/100 WBC (Bld) 0.4 % Normal . [facility] Comment on above: Performed By: #### L IPID, BMP, CBC #### [facility] [address] [place] [address] [place] Eosinophils (Bld) [#/Vol] 0.1 10*3/uL Normal 0.0-0.45 [facility] Comment on above: Performed By: #### L IPID, BMP, CBC #### [facility] [address] [place] [address] [place] Eosinophils/100 WBC (Bld) 1.4 % Normal . [facility] Comment on above: Performed By: #### L IPID, BMP, CBC #### [facility] [address] [place] [address] Erythrocyte distribution width (RBC) [Ratio] 16.8 % High 11.9-15.3 [facility] Comment on above: Performed By: #### L IPID, BMP, CBC #### [facility] [address] [place] [address] [place] Hematocrit (Bld) [Volume fraction] 32.0 % Low 34.0-46.4 [facility] Comment on above: Performed By: #### L IPID, BMP, CBC #### [facility] [address] [place] [address] [place] Hemoglobin (Bld) [Mass/Vol] 10.7 g/dL Low 11.8-15.4 [facility] Comment on above: Performed By: #### L IPID, BMP, CBC #### [facility] [address] Lymphocytes (Bld) [#/Vol] 1.4 10*3/uL Normal 1.00-4.8 [facility] Comment on above: Performed By: #### L IPID, BMP, CBC #### [facility] [address] Lymphocytes/100 WBC (Bld) 24.2 % Normal . [facility] Comment on above: Performed By: #### L IPID, BMP, CBC #### [facility] [address] MCH (RBC) [Entitic mass] 28.6 pg Normal 24.7-34.3 [facility] Comment on above: Performed By: #### L IPID, BMP, CBC #### [address] MCV (RBC) [Entitic vol] 85.5 fL Normal 80-100 [facility] Comment on above: Performed By: #### L IPID, BMP, CBC #### [address] Mean Corpuscular HGB Conc 33.5 g/dL Normal 32.0-35.0 [facility] Comment on above: Performed By: #### L IPID, BMP, CBC #### [address] Monocytes (Bld) [#/Vol] 0.3 10*3/uL Normal 0.0-0.8 [facility] Comment on above: Performed By: #### L IPID, BMP, CBC #### [address] Monocytes/100 WBC (Bld) 17.19 % Normal 0.00-20.00 [facility] Comment on above: Performed By: #### L IPID, BMP, CBC #### [address] Monocytes/100 WBC (Bld) 6.1 % Normal . [facility] Comment on above: Performed By: #### L IPID, BMP, CBC #### [facility] [address] [place] [address] Neutrophils (Bld) [#/Vol] 3.9 10*3/uL Normal 1.8-7.7 [facility] Comment on above: Performed By: #### L IPID, BMP, CBC #### [facility] [address] [place] [address] [place] Neutrophils/100 WBC (Bld) 67.9 % Normal . [facility] Comment on above: Performed By: #### L IPID, BMP, CBC #### [facility] [address] [place] [address] NRBC% 0.1 /100{WBC} Normal 0-0.5 [facility] Comment on above: Performed By: #### L IPID, BMP, CBC #### [facility] [address] [place] [address] Platelet mean volume (Bld) [Entitic vol] 7.5 fL Normal 6.3-10.7 [facility] Comment on above: Performed By: #### L IPID, BMP, CBC #### [place] [address] [place] Platelets (Bld) [#/Vol] 145 10*3/uL Low 150-450 [facility] [facility] Comment on above: Performed By: #### L IPID, BMP, CBC #### [facility] [address] [place] [address] [place] RBC (Bld) [#/Vol] 3.75 10*6/uL Normal 3.60-5.00 [facility] Comment on above: Performed By: #### L IPID, BMP, CBC #### [facility] [address] [place] [address] [place] WBC (Bld) [#/Vol] 5.7 10*3/uL Normal 3.8-11.6 [facility] Comment on above: Performed By: #### L IPID, BMP, CBC #### [address] [place] [address] [place] Creatine Kinaseon 03-11-2023 CK [Catalytic activity/Vol] 64 U/L Normal [facility] Comment on above: Performed By: #### L IPID, CMP, A1C WTH eA, CBC #### [facility] [address] [place] [address] [place] Creatine kinase [Enzymatic a ctivity/volume] in Serum or PlasmaOrdered By: Lamin Rose on 03-11-2023 CK [Catalytic activity/Vol] 64 U/L [facility] Creatinine (Bld) [Mass/Vol]O rdered By: Lamin Rose on 03-11-2023 Creatinine [Mass/Vol] 1.7 mg/dL 0.6-1.3 [facility] Comment on above: ER/ESD physician is notified/shown all ISTAT results.Critical values may be confirmed by laboratory testing ifdeemed necessary by ER attending doctor. Dipstick and Microscopicon 0 03-11-2023 Appearance (U) Clear Normal Clear [facility] Comment on above: Order Comment: Name Collection Type:: Clean-Voided Midstream Performed By: #### L IPID, CMP, A1C WTH eA, CBC #### [facility] [address] [place] [address] [place] Bacteria,Urine None Seen Normal None Seen [facility] Comment on above: Order Comment: Name Collection Type:: Clean-Voided Midstream Performed By: #### L IPID, CMP, A1C WTH eA, CBC #### [facility] [address] [place] [address] [place] Bilirubin,Urine Negative Normal Negative [facility] Comment on above: Order Comment: Name Collection Type:: Clean-Voided Midstream Performed By: #### L IPID, CMP, A1C WTH eA, CBC #### [facility] [address] [place] [address] [place] Color (U) Yellow Normal Yellow [facility] Comment on above: Order Comment: Name Collection Type:: Clean-Voided Midstream Performed By: #### L IPID, CMP, A1C WTH eA, CBC #### [facility] [address] [place] [address] Glucose Ql (U) Normal Normal Normal [facility] Comment on above: Order Comment: Name Collection Type:: Clean-Voided Midstream Performed By: #### L IPID, CMP, A1C WTH eA, CBC #### [facility] [address] [place] [address] [place] Hyaline Casts,Urine 0-8 Normal 0-8 [facility] Comment on above: Order Comment: Name Collection Type:: Clean-Voided Midstream Result Comment: PERF ORMED BY: [place] [address] PATHOLOGIST [employer] TENDER THERESA MULLER M.D. Performed By: #### L IPID, CMP, A1C WTH eA, CBC #### [facility] [address] [place] [address] [place] Ketones Ql (U) Negative Normal Negative [facility] Comment on above: Order Comment: Name Collection Type:: Clean-Voided Midstream Performed By: #### L IPID, CMP, A1C WTH eA, CBC #### [facility] [address] [place] [address] [place] Leukocyte esterase Test strip Ql (U) 2+ High Negative [facility] Comment on above: Order Comment: Name Collection Type:: Clean-Voided Midstream Performed By: #### L IPID, CMP, A1C WTH eA, CBC #### [facility] [address] [place] [address] [place] Nitrite,Urine Negative Normal Negative [facility] Comment on above: Order Comment: Name Collection Type:: Clean-Voided Midstream Performed By: #### L IPID, CMP, A1C WTH eA, CBC #### [facility] [address] [place] [address] [place] Occult Blood,Urine Negative Normal Negative [facility] Comment on above: Order Comment: Name Collection Type:: Clean-Voided Midstream Result Comment: PERF ORMED BY: [place] [address] PATHOLOGIST [employer] T[employer]ER THERESA MULLER M.D. Performed By: #### L IPID, CMP, A1C WTH eA, CBC #### [facility] [address] pH (U) 5.0 [pH] Normal 5.0-9.0 [facility] Comment on above: Order Comment: Name Collection Type:: Clean-Voided Midstream Performed By: #### L IPID, CMP, A1C WTH eA, CBC #### [facility] [address] Protein,Urine Negative Normal Negative [facility] Comment on above: Order Comment: Name Collection Type:: Clean-Voided Midstream Performed By: #### L IPID, CMP, A1C WTH eA, CBC #### [address] RBC LM.HPF (Urine sed) [#/Area] 0 /[HPF] Normal 0-4 [facility] Comment on above: Order Comment: Name Collection Type:: Clean-Voided Midstream Performed By: #### L IPID, CMP, A1C WTH eA, CBC #### [address] Specificy [place],Urine 1.020 Normal 1.001-1.03 0 [facility] Comment on above: Order Comment: Name Collection Type:: Clean-Voided Midstream Performed By: #### L IPID, CMP, A1C WTH eA, CBC #### [place] [address] [place] Squamous Epithelial Cell,Urine 5-9 High 0-2 [facility] Comment on above: Order Comment: Name Collection Type:: Clean-Voided Midstream Performed By: #### L IPID, CMP, A1C WTH eA, CBC #### [facility] [address] [place] [address] [place] Urobilinogen,Urine Normal Normal Normal [facility] Comment on above: Order Comment: Name Collection Type:: Clean-Voided Midstream Performed By: #### L IPID, CMP, A1C WTH eA, CBC #### [place] [address] [place] WBC,Urine 10-19 High 0-4 [facility] Comment on above: Order Comment: Name Collection Type:: Clean-Voided Midstream Performed By: #### L IPID, CMP, A1C WTH eA, CBC #### [facility] [address] [place] [address] [facility] ECG 12 lead ECGon 03-11-2023 ECG 12 lead ECG [facility] [place] [address] [place] [address] Electrocardiograph Report Signed Patient: Anh Tejeda MR#: [id number] 036 : 1950 Acct:[id number] Age/Sex: 72 / F ADM Date: 03/11/23 Loc: Room: [address] [place] [address] Type: ADM IN Attending Dr: Kimberly Arteaga MD Ordering Provider: Lamin Rose MD Date of Service: 03/11/23 ECG/ECG 12 lead ECG: Weakness Copies to: Test Reason : Blood Pressure : 151/065 mmHG Vent. Rate : 077 BPM Atrial Rate : 077 BPM P-R Int : 176 ms QRS Dur : 072 ms QT Int : 410 ms P-R-T Axes : 044 015 008 degrees QTc Int : 463 ms Normal sinus rhythm Low voltage QRS Cannot rule out Anterior infarct (cited on or before 17-DEC-2010) Abnormal ECG When compared with ECG of 22-JUL-2022 16:00, Questionable change in initial forces of Anterior leads Nonspecific T wave abnormality, worse in Anterior leads Confirmed by LAMIN ROSE MD ([id number]) on 03/11/2023 7:18:31 PM Referred By: Electronically Signed By:LAMIN ROSE MD Transcribed By: MUS Signed By Lamin Rose MD 02/15 Normal [facility] Glucose Poct Glucometerson 0 03-11-2023 Commemt1 Glu2: Cleaned Meter Normal [facility] Comment on above: Result Comment: PERF ORMED BY: [place] [id number] PATHOLOGIST [employer] T[employer]ER THERESA MULLER M.D. Performed By: #### L IPID, CMP, A1C WTH eA, CBC #### [facility] [address] Glucose [Mass/Vol] 193 mg/dL Normal [facility] Comment on above: Result Comment: [place] Glucose Reference Range is dependent on time and content of last meal. Glucose of more than 200 mg/dL in a nonstressed, ambulatory subject supports the diagnosis of Diabetes Mellitus. Performed By: #### L IPID, CMP, A1C WTH eA, CBC #### [facility] [address] Ketones Auto test strip (U) [Mass/Vol]Ordered By: Lamin Rose on 03-11-2023 Ketones (U) [Mass/Vol] Negative Negative [facility] - CoagulationOrde red By: Lamin Rose on 03-11-2023 PT Coag (PPP) [Time] 13.5 s 9.0-12.9 [facility] - UrinalysisOrder ed By: Lamin Rose on 03-11-2023 Hyaline casts LM Ql (Urine sed) 0-8 [LPF] 0-8 [facility] Monocyte distribution width [Entitic volume] in Blood by AutomatedOrdered By: Lamin Rose on 03-11-2023 Monocyte distribution width Auto (Bld) [Entitic vol] 17.19 % 0.00-20.00 [facility] Nitrite Test strip Ql (U)Ord ered By: Lamin Rose on 03-11-2023 Nitrite Ql (U) Negative Negative [facility] No Panel InformationOrdered By: Lamin Rose on 03-11-2023 Bedside Glucose Comment Glu2: cleaned meter [facility] Partial Thromboplastin Timeo n 03-11-2023 aPTT Coag (Bld) [Time] 33.9 s Normal 25.1-36.5 [facility] Comment on above: Result Comment: PERF ORMED BY: [place] [address] PATHOLOGIST [employer] TENDER THERESA MULLER M.D. Performed By: #### L IPID, BMP, CBC #### [facility] [address] [place] [id number] [facility] Platelet poor plasma interna tional normalized ratio (INR) by coagulation assay (relatOrdered By: Lamin Rose on 03-11-2023 INR Coag (PPP) [Relative time] 1.2 {INR} [facility] Comment on above: INR Therapeutic Rang e A) Pre- and Peroperative OAT started two weeks before surgery. NOT HIP SURGERY: 1.5 - 2.5 HIP SURGERY: 2 - 3B) Primary and secondary prevention of venous THROMBOSIS: 2 - 3C) Active venous thrombosis, pulmonary embolismand prevention of recurrent venous thrombosis: 2 - 3D) Prevention of arterial thromboembolismincluding patients with mechanical heart valves: 3 - 4.5 Protein Auto test strip (U) [Mass/Vol]Ordered By: Lamin Rose on 03-11-2023 Protein (U) [Mass/Vol] Negative Negative Fi [facility] Prothrombin Time INRon 03-11 INR Coag (PPP) [Relative time] 1.2 {INR} Normal [facility] Comment on above: Result Comment: INR Therapeutic Range A) Pre- and Peroperative OAT started two weeks before surgery. NOT HIP SURGERY: 1.5 - 2.5 HIP SURGERY: 2 - 3 B) Primary and secondary prevention of venous THROMBOSIS: 2 - 3 C) Active venous thrombosis, pulmonary embolism and prevention of recurrent venous thrombosis: 2 - 3 D) Prevention of arterial thromboembolism including patients with mechanical heart valves: 3 - 4.5 Performed By: #### L JUSTIN SMITH, CBC #### [facility] [address] PT Coag (PPP) [Time] 13.5 s High 9.0-12.9 [facility] Comment on above: Performed By: #### L JUSTIN SMITH, CBC #### [facility] [address] Specific gravity Auto test s trip (U) [Rel density]Ordered By: Lamin Rose on 03-11-2023 Specific gravity (U) [Rel density] 1.020 1.001-1.03 0 [facility] Squamous epithelial cells de tection in urine sediment by light microscopyOrdered By: Lamin Rose on 03-11-2023 Epithelial cells.squamous LM Ql (Urine sed) 5-9 [HPF] 0-2 [facility] Troponin I High Sensitivityo n 03-11-2023 Troponin I High Sensitivity 3.7 pg/mL Normal 0.0-15.0 [facility] Comment on above: Result Comment: PERF ORMED BY: [facility] [address] [facility] [place] [address] PATHOLOGIST [employer] TENDER THERESA MULLER M.D. Performed By: #### L IPID, CMP, A1C WTH eA, CBC #### [facility] [address] Troponin I.cardiac [Mass/vol ume] in Serum or Plasma by Detection limit <= 0.01 ng/Ordered By: Lamin Rose on 03-11-2023 Troponin I.cardiac DL <= 0.01 ng/mL [Mass/Vol] 3.7 pg/mL 0.0-15.0 [facility] Urine Cultureon 03-11-2023 Bacteria identified Cx Nom (U) ORGANISM: Escherichia coli (O:ESCCOL) Datil Count >100,000 Aerobic JUNAID Charge (NMIC56) SUSCEPTIBILITY ORGANISM: O:ESCCOL ANTIBIOTIC INTERPRETATION JUNAID Amikacin S <16 Amoxacillin/K Clavulanate S <8 Ampicillin S <8 Ampicillin/Sulbactam S <4 Aztreonam S <4 Cefazolin S <2 Cefepime S <2 Ceftazidime S <1 Ceftazidime/Avibactam S <4 Ceftolozane/Tazobactam S <2 Ceftriaxone S <1 Cefuroxime S <4 Ciprofloxacin S <0.25 Ertapenem S <0.5 Gentamicin S <2 Levofloxacin S <0.5 Meropenem S <1 Meropenem/Vaborbactam S <2 Nitrofurantoin S <32 Piperacillin/Tazobactam S <8 Tetracycline S <4 Tigecycline S <2 Tobramycin S <2 Trimethoprim/Sulfamethoxazo le S <0.5 S = SUSCEPTIBLE I = INTERMEDIATE R = RESISTANT BLANK = DATA NOT AVAILABLE, OR DRUG NOT ADVISABLE OR TESTED R* = RESISTANCE DUE TO EXTENDED SPECTRUM BETA-LACTAMASES ESBL = EXTENDED SPECTRUM BETA-LACTAMASE TFG = THYMIDINE-DEPENDENT STRAIN HANNA = BETA-LACTAMASE POSITIVE IB = INDUCIBLE BETA-LACTAMASE. APPEARS IN PLACE OF 'S' WITH SPECIES KNOWN TO POSSESS INDUCIBLE BETA-LACTAMASES. POTENTIALLY THEY MAY BECOME RESISTANT TO ALL B-LACTAM DRUGS. PERFORMED BY: [place] [address] PATHOLOGIST [employer]ACHINE TENDER THERESA MULLER M.D. [facility] Comment on above: Performed By: #### L IPID, CMP, A1C WTH eA, CBC #### [facility] [address] [place] [address] Urine bacteria detection by automated methodOrdered By: Lamin Rose on 03-11-2023 Bacteria Auto Ql (U) None seen None Seen [facility] Urine clarity by refractomet ry automatedOrdered By: Lamin Rose on 03-11-2023 Clarity Refractometry automated (U) Clear Clear [facility] Urine culture routineOrdered By: Lamin Rose on 03-11-2023 Bacteria identified Cx Nom (U) Escherichia coli [facility] Urine glucose measurement by automated test strip (mass/volume)Ordered By: Lamin Rose on 03-11-2023 Glucose Auto test strip (U) [Mass/Vol] Normal mg/dL Normal [facility] Urine hemoglobin detection b y automated test stripOrdered By: Lamin Rose on 03-11-2023 Hemoglobin Auto test strip Ql (U) Negative Negative [facility] Urine leukocyte esterase det ection by automated test stripOrdered By: Lamin Rose on 03-11-2023 Leukocyte esterase Auto test strip Ql (U) 2+ Negative [facility] Urobilinogen Auto test strip (U) [Mass/Vol]Ordered By: Lamin Rose on 03-11-2023 Urobilinogen (U) [Mass/Vol] Normal mg/dL Normal [facility] XR chest 1V portableon 03-11 XR chest 1V portable [facility] [place] [address] [place] [address] XRay Report Signed Patient: Anh Tejeda MR#: [id number] 036 : 1950 Acct:[id number] Age/Sex: 72 / F ADM Date: 03/11/23 Loc: ER Room: Type: [facility] ER Attending Dr: Copies to: Lamin Rose MD Ordering Provider: Lamin Rose MD Date of Service: 03/11/23 XR/XR chest 1V portable: Weakness XR chest 1V portable 03/11/2023 3:40 PM SIGNS AND SYMPTOMS: Weakness, nausea, syncopal episode, hypertension PROTOCOL: Frontal radiograph of the chest COMPARISON: 07/22/2022 FINDINGS: The trachea is midline. The heart and mediastinal structures are within normal limits. The lung parenchyma is clear. The bony thorax is intact. Degenerative changes are noted in the thoracic spine. XR/XR chest 1V portable IMPRESSION: No acute cardiopulmonary pathology. Impression dictated by: Riki Garnica M.D.03/11/2023 4:19 PM Dictation Location: [place] [address] Transcribed By: [facility] 03/11/231618 Dictated By: Riki Garnica II, MD 03/11/231616 Signed By: 03/11/231618 Normal [facility] pH Auto test strip (U)Ordere d By: Lamin Rose on 03-11-2023 pH (U) 5.0 [pH] 5.0-9.0 [facility] Lab Reportson 02-27-2023 Lab Reports [id number]#[id number]:127 Normal [facility] MAGNESIUMon 02-23-2023 Magnesium [Mass/Vol] 1.3 mg/dL Critically low 1.8-2.4 [facility] Comment on above: Performed By: #### M G #### [facility] [address] [place] [id number] Anamika Varghese Provider Letteron 02-19-2023 Provider Letter (Inserted Image. Tia ble to display) February 19, 2023 ANH TEJEDA [address] [place] [address] ANH TEJEDA 1950 Dear Anh, We have been trying to reach you with no success. You have an appointment with Bertin on March 23 which will need to be rescheduled with on April 15 at 9:30. Please contact the office at the number listed below to confirm this appointment time at your earliest convenience. Thank you for your prompt attention to this matter. Sincerely, Mehdi Jay [facility] [phone] [facility] Lab Reportson 02-10-2023 Lab Reports [id number]:127 Normal [facility] Lab Reports [id number]:127 Normal [facility] CNPNon 02-09-2023 CNPN Telephone (HEMASA) ANH TEJEDA ([id number]) 1950 F Date Time Provider Department 02/09/23 JOVANNI RG During your visit today, we recorded the following information about you: Jovanni Rg RN 02/09/2023 12:48 PM Signed ----- Message from Daksha Bridges PA-C sent at 02/09/2023 7:43 AM EDT ----- Please call with normal iron labs Jovanni Rg RN 02/09/2023 12:49 PM Signed Informed pt of Daksha's message. Pt verbalized understanding and denies further needs at this time. Jovanni Rg RN Allergies As of Date: 02/09/2023 Noted Allergy Reaction ACETAMINOPHEN-CODEINE 10/01/2022 14 - Other: See Comments Comments: pt states she is unwilling to try even plain tylenol after this experience even though she states she took tylenol prior to this and had no problems TYLENOL #3 (CODEINE) 09/26/2022 14 - Other: See Comments Comments: Upset stomach Date Reviewed: 02/06/2023 Reviewed by: Daksha Bridges PA-C - Fully Assessed Reason for Visit: Results [95] Prescriptions as of 02/09/2023 - magnesium oxide (MAG-OX) 400 mg (241.3 mg magnesium) tablet Take 1 tablet by mouth twice daily. - MEDIHONEY, HONEY, 100 % pste APPLY A THIN LAYER TWICE DAILY - allopurinol (ZYLOPRIM) 100 mg tablet Take 100 mg by mouth once daily. - ASCORBIC ACID, VITAMIN C, ORAL Take 500 mg by mouth once daily. - aspirin (ASPIR-81 ORAL) Take 81 mg by mouth once daily. - atenolol (TENORMIN) 50 mg tablet Take 50 mg by mouth once daily. - atorvastatin (LIPITOR) 20 mg tablet Take 20 mg by mouth once daily. - cholecalciferol (VITAMIN D3) 1,000 unit tab tablet Take 1,000 Units by mouth once daily. - diclofenac, EC, (VOLTAREN) 75 mg EC tablet Take 75 mg by mouth once daily. - furosemide (LASIX) 20 mg tablet Take 20 mg by mouth once daily. - gabapentin (NEURONTIN) 300 mg capsule Take 300 mg by mouth daily at bedtime. - lisinopril-hydroCHLOROthiaz jennifer (PRINZIDE,ZESTORETIC) 10-12.5 mg per tablet Take 1 tablet by mouth once daily. - glimepiride (AMARYL) 2 mg tablet Take 2 mg by mouth daily with breakfast. - metformin HCl (METFORMIN ORAL) Take 1,000 mg by mouth once daily. - omeprazole (PRILOSEC) 20 mg capsule Take 20 mg by mouth once daily. - rOPINIRole (REQUIP) 0.5 mg tablet Take 0.5 mg by mouth twice daily. Problem List As Of Date 02/09/2023 Noted Resolved Iron deficiency anemia due to chronic blood los*10/03/2022 Encounter Status:Closed by JOVANNI RG on 02/09/23 Normal [facility] Coding Summary.on 02-09-2023 Coding Summary. CD:[id number] Ww+PGhl YWQ+JJ1VYZKhV32plYDwyI7kX2M MTElOSywgQVBQTElOSyIgbmFtZT 1kaXNjZXJu IC8+NO5cILZtEtvgoIPzx6G6nCF 5K78epn5tJVxhxBU9IGBiJcZaeo ipi2vbpZf3HEjwItlpDlVe BCNsrS75FCA4pN29Cx04iNMjoBV gu1eksKl4CfEvIHLpVIX1nLtpLH bar8CxZRYlT68jxCZqv4F9 RFGcoGkmhNBjEaIjcUI0kT4sWXc eeqbib3fqzdbwEgr6ci62nNZvq9 Q6sJW8D3UgyaZ3ORBjxCSk EcoqgUTEcL1tbykpc0hqdumyOiZ bOUPfVGr7PUp1LBKrnSyzVfJoEK 18ONQ5VCOdxlGwI7DzVAPn lXyaYjR6c2B4Rd0RI7QEXemiQ2D NTUFSWTwvdGQ+EI65od98O9JqYo cyUjh8AILsTNV4wYE9wV9l FQZpYYntb8Z9kGD3C1AhlsKbvk2 zu4aiLNKqJVzfX86xvZEjy7F1RQ UctUX9DEMutXieQnIzzW30 Oyc+USLkvZxgy0SnViedu4tuk1b ngKm3MbfuQSZgstZvhHqqJQB6d3 FeJz0tZKMlsIX9bOI2vY7r ToIoDsX2KTaoT081KeHjmWWeOqv oN05vU0FopGF+QWUtBoy9ATJdhN jaYR8gC1XgYITaecfmeYAe kKaoZW9xASMzavklSKAiiC6eUHJ sA4l2CuPnHoP9TQmpN2MaYBHsqp awVx59uN9bSbPxNnF3HTks E6ZpklM0HKDvjTPdAFjnADZ1F39 iw5E2SNRgSCJxULY0aTR2vV7asE lnbjogbGVmdDsgdmVydGlj GMkjVKmtN029NUKtwNvwZtPcBLb uZyBEYXRlOiAgMDMvMjcvMjAyMz wvdGQ+CEYpDKK3eOgtAVNo cUNwWGgzXs7zeBfhzCkzBJ6eGUM vfzahHFSsgL0uMDJisSCxvGonGB 1zQZZyttouy304PyGqDII6 NMFlfCWwX4QihW4lUbIuQWVpNDF zN5EjuVPxDHfdT417WStnBhB0OT QkusQzC5SzDJUiqZjtZlJ4 p2J0Hw6Ua5ZdanfeM6PdaPOoJdP pCjgeAHm9B2KcBqvmyNN+PC90YW FqWV69NIi7OUI5xCdsRScm YWLlN8QozL3aKzTqCZQuBFVxSuj +PHRhYmxlIHdpZHRoPScxMDAlJy TdrVdeAM6uSy3oZSGmHBYj gAtrxJMqCqQrv6xpCZHgZCldPI4 mfKwuL0ZttGB4OCYjp0j7Vi17A3 7yK8PpkOF+EDVumSC7lPN1 xW9vFbPvSoP4UJbdI446SuEsiSZ hAwlym8bul2qwpHk4YhZ5AMPwyx NmtCspSYY1r7FkSg17K72v IHdpZHRoPSIxNSUiIHZhbGlnbj0 soB1vUh0+ROSjbEV0zFM7tF6bQu GtZiP8PBevE649VtHgoGNx Albvy5izs0xceDa3YxBbQBVeklJ weRosZTZ1c6PyWf66T3UcbYgmo8 JeAhe9gg34uFHij6B7fGZ0 J7NxVIQpuemoiJZzuIroPN7zFXI hestaMJUpyN5oKXKqU8g9EnEaPm D2HKzfQ7KrhoN4WXIogPUn ORUvnUUBqC6mzwcqi3nqynubLdL hBBRyCIe0XCm4ZOHldFpqBdJwBE M8McL5YHF9jQApwX3zwEyi arsgzR4nZzt+GUP1oMPotJDRXK9 lOjwvdGQ+PRLlAMK7sQodHKqbYP SoiP4mEOMqI1p8PfZiVrK1 EZkzK2CgbvQ6NGAoiQTaPFHfpQD CuG2efycho2oowcuaWrEbFUJhVN o9CQk2ZTAtbAvjXeSlAGF6 TtX6KZW5rWVvqN4bsKctiwjisJ4 wOyc+AenxpBtwDIO4URm5X6VxBd z3BDJguHtjUS3fuJYvXQxh Ab0lzNybmLplBV7mJYYpgtpvu62 4KmOwj3nwQYVlwDJnINlkSOK4N8 6nr5G4LDTyPNUrHZC6wQK6 kG3hsAqbsjeocWIzzCvdafMqdZi cARslUXinU175WYZddSjrQmIlHO j5U4MrKyz2CODsyGjvLX8x sLIxORdiZv0lmDzufVrgZG6tFDY ckwntr450DiQfd2zaILEyoHKyHE kbYNB9B29dc3V0BKJaBGCh JIF8hQT1cY7btDyhzfwlsWPqrBs wpnOruYtaHLmcHTaeY278DIEyhD kyJnIttWy7H7JiNvg0COXf qIzoTH0aiRKyRMyfQn2swBpvmHe uTK8rFNGnfbjqs065OhCnc4ckSS QavSNzHKlqXPI5I60cf7D9 DNAjBQQvAWG4pEE7rR6idZzcdmc gbGVmdDsgdmVydGljYWwtYWxpZ2 46IHRvcDsnPlBhdGllbnQg OCueRZd0A4ZmRlwduVE+II48VGR dQB70sUJosOIsa3rvuZk4NfDvTF ZgIVQ8yAfsLNyey4OjJAZr H05vcHLdd5A7AYTvuJuxtSUyLqR ipIF9aE4fSGqscuutw6aajafzUu njt6ikso14kQ83C64kNZbu UQZgQYFlXKHgSCCutYetzr5tnP4 wIi8+DTTgyOC6fRB3pA2xEAZeTe Q2XZgwY149SpMymIQaFcop r3frv6gbcSz0BhK7VGUuwhPwqYy vQQP0i6GhCz22N08lLKxnSPSzVY BeTLHdDSTfuDvqdj9alO4m Ii8+MLHdrXC0lIL4aO5dYoOwJbP 1ROneL902RzQkoYWwXufaS66wI0 JvdXA+MRKvFns4MUNfbSlc WR5lkKJwLIfwLr8bEOS5VrSuIaN gZDhdA3FuGMFdgrpyeomamMU1TW ByOTNalV97Go0elObsQXOy gFSSdM5cdaaqq3pkacifSgTcOCE bZJx7BTq2NKTkdVliXkEfHNT5Uc N0YXW1yKZxcN5hkNwphypg iE3wF9LoIONeukudIx47gC4jMwF rPnK2VXxwTub+JESJX2dKTapcIE BNL4t3T4OgLir3ZGZrhPkt SB7heBDtVUpvAa0eqZcunMpfYY4 aMDRdziwmUMQumQ2zSUNerFDscI gfEW9yVKBlfysxz014LsQo HPX6IOIixUHbL1LhyL6nXiFdZYJ hDVXaN6HmpCIhWZgkG243BKrgZk F1YCGiqdHaR5CrFKFpfRah JwI7f5Z5Mq6eQw8sIQ2bIUS6NN3 1YC40uFUgn5A8rWH7O5MqYNScyt rvirzjtEM0EMLoJPGgsB49 uHBgWSzzNn8gh2G7v879ZMOkGKL gaD97Qs1yuZjkUCGkkRZMvS7hvo grr0fbwugvAvHvCWEbUGv2 YEr5BVCrpZsdJaNnCYG4IoX3ZHP 8iBTpvQ8fkQpqxkpsgX8cDgi+Nz BcZXOxbmV3Z9LlHmh3VRCr xAknIW8gzVQlZMtfBx9ebAiyqKw vEM3jOYLezppnGMOamW9nMMMmiX WruWryTS5oUFRkcqppi040 EsLmGIE5IARywXEtZ3SwhV7zWiT rAXTaWXZnS7DhvWDzBEdiO610WP ebBlS3JBHwrnOmD9NpIBUo hBemDeH7k5R5Nq7MUB1vtKU0S6S lZaq3ZDHhwQzlCJ4evWVyUAqgWy 9ltHuceXupRF8tPUSdtugi GPQjnT9zSJYjiCOwzMpfBB7pFLG qkndyu899JnAcIVJ7JYTcpEMlJ8 BpyB2qCtLrAYHvCARhI7Za tZOcNHyqA480NVyvRgW1KCNpnqK iH8ZgFUJjwNepZkG3v7J8Vv4SsT VcZMRhSU21XV00RM48O8Sy PjwvdGFibGU+PHRhYmxlIHdpZHR kIXzoAIJzDoJayMdlIC5qAz1uMT HjZPAxzGzryYOgXbPtv4ng EWDzSAnzLM3irOwjU9KrtNU2BIY tu8v4Qk48Q09sS4HziIJ+PGNvbC A0hNX0iF4pLoBqXyJ6HImk V519IuNluGLzFabxl3dgs6jucOk 6VmIaWAMvqdLulLyfHAM4j8UzIy 73V39gXKkqBRKxCVNxCQMk ESMuwSnlze3xoR1kYm3+PGNvbCB 3xQG0xT8uIeLgDzU9BVkcL581Dh LlxGNhBrojO71gN4YlxNU+ PLAjSeh7LIJabXxjLP7wjKUeIFp pOn1pGOR3GyDiRmIaFZocQ4DoIT MfgtdziwxeoBK9UTCmTVSt oM50Iw5vwSlrVp4oERWgBHO3KOX hlVIyY8BzyG8sWbWhOACuYWPbU3 XftOHkUWunN222LPpoUmU8 RADdpjImT1MhVNLeaHjnAuG7r9E 6Ze9EiOxcgKEgEP8uMrTlEEo4C9 KqAdm4OUSojRltFT5yrQOh JYzkIo9ehNgtrFhyDS4uEFZazhc wk507ZhOtg2mfCFCbqILoKVuvHH Z8R86rt6N2OGWrVSQoBBF5 pBD6eK3qqDkprqkloDGloXalwsA syQbsCBgyTOlrC876RXEejAzxWf RACsz7J6EoOlt3WCYepZpy QK5jvIYsUFffBg2umVuiqLmkES7 jRDOomajxu076NbZvt1hpPSGujD ZmONqqOFU6I81hh7N1PYQr KLFvQZG1sIG9cY1soNgccergbVT itZbmmpChdLfbSBmgLEodF805OT FssQuyOq3HXeu5M7JqCew0 JXWavLskRO9phSAiKNaiAv5nhJr xeKkuJG8aBGBpdhnzd599RlDaa7 wvXPEewIAzVXexEIU3U50a q9M2BIGePCWkQPK1zRI0cF1shAw nbjogbGVmdDsgdmVydGljYWwtYW uhI018AUJcyMcyHnRsoRYi OjwvdGQ+EZ32zh72G3AtYppqGgr 1LPUyFEJ9rKN0mM2wEREjXQien2 M0eFV7P0IjyvCjou1ai3oq YXBzZTog (more content not included)... Normal [facility] Consultation Noteon 02-10-20 Consultation Note [id number]:127 Normal [facility] CBC W Auto Differential pane l (Bld)on 02-06-2023 Basophils (Bld) [#/Vol] 10*3/uL Normal <0.11 [facility] Comment on above: Order Comment: Speci men Type: BLOOD SPECIMEN Ordering Facility: [facility] Address: [address] [place] [address] Performed By: #### 5 0190-8, 2275- #### [facility] CLIA [id number] [address] [place] [address] [place] Basophils/100 WBC (Bld) 0.3 % Normal [facility] Comment on above: Order Comment: Speci men Type: BLOOD SPECIMEN Ordering Facility: [facility] Address: [address] [place] [address] Performed By: #### 5 0190-8, 2276-02 #### [facility] CLIA [id number] [address] [place] [address] [place] Differential cell count method Nom (Bld) Auto Normal [facility] Comment on above: Order Comment: Speci men Type: BLOOD SPECIMEN Ordering Facility: [facility] Address: [address] [place], [place] [address] Performed By: #### 5 0190-8, 2276-02 #### [facility] CLIA [id number] [address] [place] [address] [place] Eosinophils (Bld) [#/Vol] 0.33 10*3/uL Normal <0.46 [facility] Comment on above: Order Comment: Speci men Type: BLOOD SPECIMEN Ordering Facility: [facility] Address: [address] [place] [address] Performed By: #### 5 0190-8, 2275- #### [facility] CLIA [id number] [address] [place] [address] [place] Eosinophils/100 WBC (Bld) 5.1 % Normal [facility] Comment on above: Order Comment: Speci men Type: BLOOD SPECIMEN Ordering Facility: [facility] Address: [address] [place] [address] Performed By: #### 5 0190-8, 2275-4 #### [facility] CLIA [id number] [address] [place] [address] [place] Erythrocyte distribution width (RBC) [Ratio] 16.0 % High 11.5-15.0 [facility] Comment on above: Order Comment: Speci men Type: BLOOD SPECIMEN Ordering Facility: [facility] Address: [address] [place] [address] Performed By: #### 5 0190-8, 2275-4 #### [facility] CLIA [id number] [address] [place] [address] [place] Hematocrit (Bld) [Volume fraction] 33.3 % Low 36.0-46.0 [facility] Comment on above: Order Comment: Speci men Type: BLOOD SPECIMEN Ordering Facility: [facility] Address: [address] [place] [address] Performed By: #### 5 0190-8, 2275-4 #### [facility] CLIA [id number] [address] [place] [address] [place] Hemoglobin (Bld) [Mass/Vol] 10.8 g/dL Low 11.5-15.5 [facility] Comment on above: Order Comment: Speci men Type: BLOOD SPECIMEN Ordering Facility: [facility] Address: [address] [place], [place] [address] Performed By: #### 5 0190-8, 2275-4 #### [facility] CLIA [id number] [address] [place] [address] [place] Immature granulocytes (Bld) [#/Vol] 0.03 10*3/uL Normal <0.10 [facility] Comment on above: Order Comment: Speci men Type: BLOOD SPECIMEN Ordering Facility: [facility] Address: [address] [place], [place] [address] Performed By: #### 5 0190-8, 2276-02 #### [facility] CLIA [id number] [address] [place] [address] [place] Immature granulocytes/100 WBC (Bld) 0.5 % Normal [facility] Comment on above: Order Comment: Speci men Type: BLOOD SPECIMEN Ordering Facility: [facility] Address: [address] [place] [address] Performed By: #### 5 0190-8, 2276-02 #### [facility] CLIA [id number] [address] [place] [address] [place] Lymphocytes (Bld) [#/Vol] 1.43 10*3/uL Normal 1.00-4.00 [facility] Comment on above: Order Comment: Speci men Type: BLOOD SPECIMEN Ordering Facility: [facility] Address: [address] [place] [address] Performed By: #### 5 0190-8, 2276-02 #### [facility] CLIA [id number] [address] [place] [address] [place] Lymphocytes/100 WBC (Bld) 22.2 % Normal [facility] Comment on above: Order Comment: Speci men Type: BLOOD SPECIMEN Ordering Facility: [facility] Address: [address] [place] [address] Performed By: #### 5 0190-8, 2276-02 #### [facility] CLIA [id number] [address] [place] [address] [place] MCH (RBC) [Entitic mass] 28.6 pg Normal 26.0-34.0 [facility] Comment on above: Order Comment: Speci men Type: BLOOD SPECIMEN Ordering Facility: [facility] Address: [address] [address] Performed By: #### 5 0190-8, 2275-4 #### [facility] CLIA [id number] [address] [place] [address] [place] MCHC (RBC) [Mass/Vol] 32.4 g/dL Normal 30.5-36.0 [facility] Comment on above: Order Comment: Speci men Type: BLOOD SPECIMEN Ordering Facility: [facility] Address: [address] [address] Performed By: #### 5 0190-8, 2276-02 #### [facility] CLIA [id number] [address] [place] [address] [place] MCV (RBC) [Entitic vol] 88.3 fL Normal 80.0-100.0 [facility] Comment on above: Order Comment: Speci men Type: BLOOD SPECIMEN Ordering Facility: [facility] Address: [address] [place] [address] Performed By: #### 5 0190-8, 2276-02 #### [facility] CLIA [id number] [address] [place] [address] [place] Monocytes (Bld) [#/Vol] 0.37 10*3/uL Normal <0.87 [facility] Comment on above: Order Comment: Speci men Type: BLOOD SPECIMEN Ordering Facility: [facility] Address: [address] Performed By: #### 5 0190-8, 2276-02 #### [facility] CLIA [id number] [address] [place] [address] [place] Monocytes/100 WBC (Bld) 5.7 % Normal [facility] Comment on above: Order Comment: Speci men Type: BLOOD SPECIMEN Ordering Facility: [facility] Address: [address] [place] [address] Performed By: #### 5 0190-8, 2275- #### [facility] CLIA [id number] [address] [place] [address] [place] Neutrophils (Bld) [#/Vol] 4.27 10*3/uL Normal 1.45-7.50 [facility] Comment on above: Order Comment: Speci men Type: BLOOD SPECIMEN Ordering Facility: [facility] Address: [address] Performed By: #### 5 0190-8, 2276-02 #### [facility] CLIA [id number] [address] [place] [address] [place] Neutrophils/100 WBC (Bld) 66.2 % Normal [facility] Comment on above: Order Comment: Speci men Type: BLOOD SPECIMEN Ordering Facility: [facility] Address: [address] Performed By: #### 5 0190-8, 2276-02 #### [facility] CLIA [id number] [address] [place] [address] [place] Nucleated RBC (Bld) [#/Vol] 10*3/uL Normal <0.01 [facility] Comment on above: Order Comment: Speci men Type: BLOOD SPECIMEN Ordering Facility: [facility] Address: [address] Performed By: #### 5 0190-8, 2276-02 #### [facility] CLIA [id number] [address] [place] [address] [place] Nucleated RBC/100 WBC (Bld) [Ratio] 0.0 /100 WBC Normal [facility] Comment on above: Order Comment: Speci men Type: BLOOD SPECIMEN Ordering Facility: [facility] Address: [address] [place] [address] Performed By: #### 5 0190-8, 2275- #### [facility] CLIA [id number] [address] [place] [address] [place] Platelet mean volume (Bld) [Entitic vol] 9.7 fL Normal 9.0-12.7 [facility] Comment on above: Order Comment: Speci men Type: BLOOD SPECIMEN Ordering Facility: [facility] Address: [address] [place] [address] Performed By: #### 5 0190-8, 6-4 #### [facility] CLIA [id number] [address] [place] [address] [place] Platelets (Bld) [#/Vol] 151 10*3/uL Normal 150-400 [facility] Comment on above: Order Comment: Speci men Type: BLOOD SPECIMEN Ordering Facility: [facility] Address: [address] [place] [address] Performed By: #### 5 0190-8, 2275-4 #### [facility] CLIA [id number] [address] [place] [address] [place] RBC (Bld) [#/Vol] 3.77 10*6/uL Low 3.90-5.20 [facility] Comment on above: Order Comment: Speci men Type: BLOOD SPECIMEN Ordering Facility: [facility] Address: [address] [place] [address] Performed By: #### 5 0190-8, 2275-4 #### [facility] CLIA [id number] [address] [place] [address] [place] WBC (Bld) [#/Vol] 6.45 10*3/uL Normal 3.70-11.00 [facility] Comment on above: Order Comment: Speci men Type: BLOOD SPECIMEN Ordering Facility: [facility] Address: [address] [place] [address] Performed By: #### 5 0190-8, 2275-4 #### [facility] CLIA [id number] [address] [id number] [place] [facility] CNOVSPon 02-06-2023 CNOVSP Visit (SP) Office ([facility] ANDERSON) ANH TEJEDA ([id number]) 1950 F Date Time Provider Department 02/06/23 2:30 PM DAKSHA BRIDGES During your visit today, we recorded the following information about you: Temperature Pulse Respiration Blood pressure 97.2 degrees 84/minute 16/minute 137/61 Weight Height 97.8 kg 1.58 m Daksha Bridges PA-C 02/06/2023 2:44 PM Signed PATIENT NAME: Anh Tejeda CLINIC NO.: [id number] ATTENDING PHYSICIAN: Delores Walker MD DATE OF SERVICE: February 06, 2023 (Elements copied from Dr. Walker's note dated December 12, 2022, have been reviewed and updated where appropriate, and all reflect current assessment and medical decision making during today's encounter, February 06, 2023) CHIEF COMPLAINT: Follow up Diagnosis: NAINA Treatment: Venofer x 3 doses 10/2022 HPI: Anh returns for follow up. She is now on magnesium from her PCP. No other changes. Her last iron infusion was in October 2022. No evidence of bleeding. Still mild fatigue. Energy is still a little better. Current Outpatient Medications Medication Sig MEDIHONEY, HONEY, 100 % pste APPLY A THIN LAYER TWICE DAILY allopurinol (ZYLOPRIM) 100 mg tablet Take 100 mg by mouth once daily. ASCORBIC ACID, VITAMIN C, ORAL Take 500 mg by mouth once daily. aspirin (ASPIR-81 ORAL) Take 81 mg by mouth once daily. atenolol (TENORMIN) 50 mg tablet Take 50 mg by mouth once daily. atorvastatin (LIPITOR) 20 mg tablet Take 20 mg by mouth once daily. cholecalciferol (VITAMIN D3) 1,000 unit tab tablet Take 1,000 Units by mouth once daily. diclofenac, EC, (VOLTAREN) 75 mg EC tablet Take 75 mg by mouth once daily. furosemide (LASIX) 20 mg tablet Take 20 mg by mouth once daily. gabapentin (NEURONTIN) 300 mg capsule Take 300 mg by mouth daily at bedtime. lisinopril-hydroCHLOROthiaz jennifer (PRINZIDE,ZESTORETIC) 10-12.5 mg per tablet Take 1 tablet by mouth once daily. glimepiride (AMARYL) 2 mg tablet Take 2 mg by mouth daily with breakfast. metformin HCl (METFORMIN ORAL) Take 1,000 mg by mouth once daily. omeprazole (PRILOSEC) 20 mg capsule Take 20 mg by mouth once daily. rOPINIRole (REQUIP) 0.5 mg tablet Take 0.5 mg by mouth twice daily. No current facility-administered medications for this visit. ALLERGIES Allergen Reactions Acetaminophen-Codei* Other: See Comments pt states she is unwilling to try even plain tylenol after this experience even though she states she took tylenol prior to this and had no problems Tylenol #3 [Codeine] Other: See Comments Upset stomach PAST MEDICAL HISTORY Diagnosis Date Anemia Benign fundic gland polyps of stomach Diabetes mellitus (HCC) Diverticulosis GERD (gastroesophageal reflux disease) Hemorrhoids Hyperlipidemia Polyneuropathy Rectal polyp Restless leg syndrome PAST SURGICAL HISTORY Procedure Laterality Date COLONOSCOPY EGD W/O BRSH SPEC VARICIES INJ FAMILY HISTORY Problem Relation Age of Onset other (Congenital heart disease) Mother Lung Cancer Father Social History Tobacco Use Smoking status: Never Passive exposure: Past Smokeless tobacco: Never Substance Use Topics Alcohol use: Never Drug use: Not Currently REVIEW OF SYSTEMS GENERAL: No weight loss, malaise or fevers. No night sweats. +fatigue HEENT: Negative for headaches, No changes in hearing or vision, no nose bleeds or other nasal problems. RESPIRATORY: Negative for cough, wheezing +ONEIL CARDIOVASCULAR: Negative for chest pain, leg swelling and palpitations GI: Negative for abdominal discomfort, blood in stools or black stools and change in bowel habits : Negative for dysuria, frequency and incontinence MUSCULOSKELETAL: Negative for joint pain or swelling, back pain, and muscle pain. SKIN: Negative for lesions, rash, and itching. HEMATOLOGY/LYMPHOLOGY Negative for prolonged bleeding, bruising easily, and swollen nodes. NEURO: Negative for numbness or tingling of hands/feet. No weakness. PHYSICAL EXAMINATION: BP 137/61 Pulse 84 Temp 36.2 ?C (97.2 ?F) (Temporal) Resp 16 Ht 158 cm (5' 2.21 ) Wt 97.8 kg (215 lb 9.6 oz) SpO2 96% BMI 39.17 kg/m? ECOG PERFORMANCE STATUS: 1- Restricted in physically strenuous activity. Carries out light duty. General: Alert and oriented, no distress, pleasant and cooperative. Heart: Regular, normal S1 and S2, no murmurs, rubs, or gallops Lungs: Clear to auscultation bilaterally Abdomen: Benign Extremities: Feet/ankles without edema, posterior tibial pulses full and symmetrical LABS: Glucose (mg/dL) Date Value 02/06/2023 113 Potassium (mmol/L) Date Value 02/06/2023 4.4 Sodium (mmol/L) Date Value 02/06/2023 146 Chloride (mmol/L) Date Value 02/06/2023 103 CO2 (mmol/L) Date Value 02/06/2023 26 Creatinine (mg/dL) Date Value 02/06/2023 1.46 BUN (mg/dL) Date Value 02/06/2023 33 Anion Gap ( (more content not included)... Normal [facility] Comprehensive metabolic 2000 panelon 02-06-2023 Albumin [Mass/Vol] 4.4 g/dL Normal 3.9-4.9 [facility] Comment on above: Order Comment: Speci men Type: BLOOD SPECIMEN Ordering Facility: [facility] Address: [address] [place] [address] Performed By: #### 5 0190-8, 2276-02 #### [facility] CLIA [id number] [address] [place] [address] [place] ALP [Catalytic activity/Vol] 135 U/L High 34-123 [facility] Comment on above: Order Comment: Speci men Type: BLOOD SPECIMEN Ordering Facility: [facility] Address: [address] [id number] Performed By: #### 5 0190-8, 2275- #### [facility] CLIA [id number] [address] [place] [address] [place] ALT [Catalytic activity/Vol] 30 U/L Normal 7-38 [facility] Comment on above: Order Comment: Speci men Type: BLOOD SPECIMEN Ordering Facility: [facility] Address: [address] [place], [place] [address] Performed By: #### 5 0190-8, 2275-4 #### [facility] CLIA [id number] [address] [place] [address] [place] Anion gap [Moles/Vol] 17 mmol/L Normal 9-18 [facility] Comment on above: Order Comment: Speci men Type: BLOOD SPECIMEN Ordering Facility: [facility] Address: [address] [place] [address] Performed By: #### 5 0190-8, 2275-4 #### [facility] CLIA [id number] [address] [place] [address] [place] AST [Catalytic activity/Vol] 42 U/L High 13-35 [facility] Comment on above: Order Comment: Speci men Type: BLOOD SPECIMEN Ordering Facility: [facility] Address: [address] [place] [address] Performed By: #### 5 0190-8, 2275-4 #### [facility] CLIA [id number] [address] [place] [address] [place] Bilirubin [Mass/Vol] 0.3 mg/dL Normal 0.2-1.3 [facility] Comment on above: Order Comment: Speci men Type: BLOOD SPECIMEN Ordering Facility: [facility] Address: [address] [place] [address] Performed By: #### 5 0190-8, 2275-4 #### [facility] CLIA [id number] [address] [place] [address] [place] Calcium [Mass/Vol] 9.1 mg/dL Normal 8.5-10.2 [facility] Comment on above: Order Comment: Speci men Type: BLOOD SPECIMEN Ordering Facility: [facility] Address: [address] Performed By: #### 5 0190-8, 2275-4 #### [facility] CLIA [id number] [address] [place] [address] [place] Chloride [Moles/Vol] 103 mmol/L Normal 97-105 [facility] Comment on above: Order Comment: Speci men Type: BLOOD SPECIMEN Ordering Facility: [facility] Address: [address] [address] Performed By: #### 5 0190-8, 2275-4 #### [facility] CLIA [id number] [address] [place] [address] [place] CO2 [Moles/Vol] 26 mmol/L Normal 22-30 [facility] Comment on above: Order Comment: Speci men Type: BLOOD SPECIMEN Ordering Facility: [facility] Address: [address] [address] Performed By: #### 5 0190-8, 2275- #### [facility] CLIA [id number] [address] [place] [address] [place] Creatinine [Mass/Vol] 1.46 mg/dL High 0.58-0.96 [facility] Comment on above: Order Comment: Speci men Type: BLOOD SPECIMEN Ordering Facility: [facility] Address: [address] Performed By: #### 5 0190-8, 2275-4 #### [facility] CLIA [id number] [address] [place] [address] [place] ESTIMATED GLOMERULAR FILTRATION RATE 38 mL/min/1.73m??? Low >=60 [facility] Comment on above: Order Comment: Speci men Type: BLOOD SPECIMEN Ordering Facility: [facility] Address: [address] [place] [address] Result Comment: Maru mated Glomerular Filtration Rate (eGFR) is calculated using the 2020 CKD-EPI creatinine equation. This equation utilizes serum creatinine, sex, and age as parameters. The creatinine assay has traceable calibration to isotope dilution-mass spectrometry. Refer to KDIGO guidelines for clinical interpretation. In patients with unstable renal function, e.g. those with acute kidney injury, the eGFR may not accurately reflect actual GFR. Performed By: #### 5 0190-8, 2275- #### [facility] CLIA [id number] [address] [place] [address] [place] Glucose [Mass/Vol] 113 mg/dL High 74-99 [facility] Comment on above: Order Comment: Patricia tarango Type: BLOOD SPECIMEN Ordering Facility: [facility] Address: [address] [address] Result Comment: The [place] Diabetes Association (ADA) provides guidance for cutoff values for fasting glucose and random glucose. The ADA defines fasting as no caloric intake for at least 8 hours. Fasting plasma glucose results between 100 to 125 mg/dL indicate increased risk for diabetes (prediabetes). Fasting plasma glucose results greater than or equal to 126 mg/dL meet the criteria for diagnosis of diabetes. In the absence of unequivocal hyperglycemia, results should be confirmed by repeat testing. In a patient with classic symptoms of hyperglycemia or hyperglycemic crisis, random plasma glucose results greater than or equal to 200 mg/dL meet the criteria for diagnosis of diabetes. Reference: Standards of Medical Care in Diabetes 2016, [place] Diabetes Association. Diabetes Care. 2016.39(Suppl 1). Performed By: #### 5 0190-8, 2275- #### [facility] CLIA [id number] [address] [place] [address] [place] Potassium [Moles/Vol] 4.4 mmol/L Normal 3.7-5.1 [facility] Comment on above: Order Comment: Patricia tarango Type: BLOOD SPECIMEN Ordering Facility: [facility] Address: [address] [address] Performed By: #### 5 0190-8, 2275-4 #### [facility] CLIA [id number] [address] [place] [address] [place] Protein [Mass/Vol] 7.0 g/dL Normal 6.3-8.0 [facility] Comment on above: Order Comment: Speci men Type: BLOOD SPECIMEN Ordering Facility: [facility] Address: [address] [place] [address] Performed By: #### 5 0190-8, 2276-4 #### [facility] CLIA [id number] [address] [place] [address] [place] Sodium [Moles/Vol] 146 mmol/L High 136-144 [facility] Comment on above: Order Comment: Speci men Type: BLOOD SPECIMEN Ordering Facility: [facility] Address: [address] [place] [address] Performed By: #### 5 0190-8, 2276-4 #### [facility] CLIA [id number] [address] [place] [address] [place] Urea nitrogen [Mass/Vol] 33 mg/dL High 7-21 [facility] Comment on above: Order Comment: Speci men Type: BLOOD SPECIMEN Ordering Facility: [facility] Address: [address] [place] [address] Performed By: #### 5 0190-8, 6-4 #### [facility] CLIA [id number] [address] [place] [address] [place] Ferritin SerPl-mCncon 2022 Ferritin [Mass/Vol] 130.0 ng/mL Normal 14.7-205.1 [facility] Comment on above: Order Comment: Speci men Type: BLOOD SPECIMEN Ordering Facility: [facility] Address: [address] [place] [address] Performed By: #### 2 276-4 #### [facility] CLIA [id number] [address] [place] [address] [place] Iron and Iron binding capaci ty panelon 02-06-2023 Iron [Mass/Vol] 71 ug/dL Normal 41-186 [facility] Comment on above: Order Comment: Speci men Type: BLOOD SPECIMEN Ordering Facility: [facility] Address: [address] [place] [address] Performed By: #### 5 0190-8, 6-4 #### [facility] CLIA [id number] [address] [place] [address] Iron binding capacity [Mass/Vol] 383 ug/dL Normal 232-386 [facility] Comment on above: Order Comment: Speci men Type: BLOOD SPECIMEN Ordering Facility: [facility] Address: [address] [place] [address] Performed By: #### 5 0190-8, 2275-4 #### [facility] CLIA [id number] [address] [place] [address] Iron/TIBC [Molar ratio] 18.5 % Normal 15.0-57.0 [facility] Comment on above: Order Comment: Speci men Type: BLOOD SPECIMEN Ordering Facility: [facility] Address: [address] [place] [address] Performed By: #### 5 0190-8, 2275-4 #### [facility] CLIA [id number] [address] [place] [address] [place] Auto Diffon 02-03-2023 Basophils/100 WBC (Bld) 0.4 % Normal 0.0-2.0 [facility] Comment on above: Order Comment: Order Added by Discern Expert. Performed By: #### 2 859523, 9837962, 82146615, 0785119, 0501389, 2726868, 3317351 ####[facility] [address] [place] [address] Basophils/Leukocytes Auto (Bld) [Pure # fraction] 0.0 E9/L Normal 0.0-0.2 [facility] Comment on above: Order Comment: Order Added by Kyele Expert. Performed By: #### 2 453312, 4669293, 63332246, 9877263, 9869335, 3321528, 5659056 ####[facility] [address] [place] [address] Eosinophils/100 WBC (Bld) 7.5 % Normal 0.0-8.0 [facility] Comment on above: Order Comment: Order Added by Discern Expert. Performed By: #### 2 012819, 5889179, 66677823, 3013260, 1888352, 9949150, 6524645 ####[facility] [address] [place] [address] Eosinophils/Leukocytes Auto (Bld) [Pure # fraction] 0.4 E9/L Normal 0.0-0.5 [facility] Comment on above: Order Comment: Order Added by Kylee Expert. Performed By: #### 2 738362, 3099428, 03241806, 9102542, 4179897, 2436391, 8028606 ####[facility] [address] [place] [address] Lymphocytes/100 WBC (Bld) 21.6 % Normal 14.0-50.0 [facility] Comment on above: Order Comment: Order Added by Kylee Expert. Performed By: #### 2 405710, 9631142, 45238458, 9356328, 8157976, 5966055, 6350333 ####[facility] [address] [place] [address] Lymphocytes/Leukocytes Auto (Bld) [Pure # fraction] 1.2 E9/L Normal 1.0-4.0 [facility] Comment on above: Order Comment: Order Added by Kylee Expert. Performed By: #### 2 342784, 9383289, 01763316, 0421891, 5609678, 8597746, 5876793 ####[facility] [address] [place] [address] Monocytes/100 WBC (Bld) 5.5 % Normal 4.0-14.0 [facility] Comment on above: Order Comment: Order Added by Discern Expert. Performed By: #### 2 348765, 1790314, 06258134, 5210459, 4313778, 7188089, 9146766 ####[facility] [address] [place] [address] Monocytes/Leukocytes Auto (Bld) [Pure # fraction] 0.3 E9/L Normal 0.2-1.0 [facility] Comment on above: Order Comment: Order Added by Discern Expert. Performed By: #### 2 355396, 2481856, 62798284, 0540433, 8717420, 8837854, 9669989 ####[place] [address] [place] [address] Neutrophils/100 WBC (Bld) 65.0 % Normal 36.0-75.0 [facility] Comment on above: Order Comment: Order Added by Discern Expert. Performed By: #### 2 051233, 8390765, 32057309, 5784406, 1788434, 2705991, 0587725 ####[facility] [address] [place] [address] Neutrophils/Leukocytes Auto (Bld) [Pure # fraction] 3.6 E9/L Normal 2.0-7.5 [facility] Comment on above: Order Comment: Order Added by Discern Expert. Performed By: #### 2 303260, 3861442, 44510969, 6629998, 4868125, 9582870, 9234130 ####[facility] [address] [place] [address] BMPon 02-03-2023 Anion gap [Moles/Vol] 17 mmol/L High 6-16 [facility] Comment on above: Performed By: #### 2 838727, 0999073, 75540189, 6617237, 5178188, 6427547, 0533626 ####[facility] [address] [place] [address] Urea nitrogen/Creatinine [Mass ratio] 24 No Units High 10-20 [facility] Comment on above: Performed By: #### 2 886061, 2120425, 44649924, 4854685, 8272490, 1584294, 9028989 ####[facility] [address] [place] [address] Calcium [Mass/Vol] 8.2 mg/dL Low 8.9-11.1 [facility] Comment on above: Performed By: #### 2 891869, 8528092, 44909710, 5398806, 2323654, 1854366, 3403166 ####[facility] [address] [place] [address] Chloride [Moles/Vol] 102 mmol/L Normal 101-111 [facility] Comment on above: Performed By: #### 2 924513, 4438020, 20076068, 1522138, 6075609, 3698165, 1814575 ####[facility] [address] [place] [address] CO2 [Moles/Vol] 26 mmol/L Normal 21-31 [facility] Comment on above: Performed By: #### 2 492780, 4104982, 70263004, 0247169, 8877278, 3886392, 8716972 ####[facility] [address] [place] [address] Creatinine [Mass/Vol] 1.3 mg/dL Normal 0.5-1.3 [facility] Comment on above: Performed By: #### 2 643626, 6696672, 57413197, 0167962, 2901008, 9034842, 4678200 ####[facility] [address] [place] [address] Glucose [Mass/Vol] 188 mg/dL Normal 55-199 [facility] Comment on above: Result Comment: If t his glucose result represents a fasting glucose, interpretation should refer to the following reference range: 55-99 mg/dL Performed By: #### 2 882675, 8295036, 36734812, 8944363, 7207114, 8459535, 5129598 ####[facility] [address] [place] [address] Potassium [Moles/Vol] 4.4 mmol/L Normal 3.5-5.3 [facility] Comment on above: Performed By: #### 2 570860, 1578011, 14361321, 3875614, 9785660, 0162299, 2859167 ####[facility] [address] [place] [address] Sodium [Moles/Vol] 141 mmol/L Normal 135-145 [facility] Comment on above: Performed By: #### 2 004881, 3744402, 85597164, 1705504, 0809986, 6408169, 3610667 ####[facility] [address] [place] [address] Urea nitrogen [Mass/Vol] 31 mg/dL High 5-21 [facility] Comment on above: Performed By: #### 2 344903, 1152069, 18715181, 7509021, 2208025, 1346338, 1028932 ####[facility] [address] [place] [address] CBC w/ Auto Diffon 3 Erythrocyte distribution width (RBC) [Ratio] 16.6 % High 10.9-14.2 [facility] Comment on above: Performed By: #### 2 469957, 5807374, 77975557, 3576751, 5410887, 2378250, 7138645 ####[facility] [address] [place] [address] Hematocrit (Bld) [Volume fraction] 34.4 % Normal 34.0-46.0 [facility] Comment on above: Performed By: #### 2 723001, 9982268, 33716099, 5041347, 0438621, 4137258, 0363823 ####[facility] [address] [place] [address] Hemoglobin (Bld) [Mass/Vol] 11.3 g/dL Low 12.0-16.0 [facility] Comment on above: Performed By: #### 2 637451, 5315998, 30014100, 1466798, 1315164, 8114876, 2566281 ####[facility] [address] [place] [address]57 MCH (RBC) [Entitic mass] 28.5 pg Normal 27.0-34.0 [facility] Comment on above: Performed By: #### 2 878135, 0889443, 40699446, 1201654, 6837110, 4369302, 0989784 ####[place] [address] MCHC (RBC) [Mass/Vol] 33.0 g/dL Normal 31.4-36.0 [facility] Comment on above: Performed By: #### 2 841810, 2510252, 41413354, 9580943, 7497481, 5511020, 4513950 ####[place] [address] MCV (RBC) [Entitic vol] 86.4 fL Normal 80.0-100.0 [facility] Comment on above: Performed By: #### 2 966964, 2865126, 73682912, 7027580, 5674727, 0853588, 2328769 ####[address] [address] Platelet mean volume (Bld) [Entitic vol] 7.3 fL Normal 6.4-10.8 [facility] Comment on above: Performed By: #### 2 380939, 8919059, 49004004, 3330779, 4202747, 1178314, 7035893 ####[address] [address] Platelets (Bld) [#/Vol] 153.0 E9/L Normal 150.0-500. 0 [facility] Comment on above: Performed By: #### 2 456780, 2582403, 03601336, 8650399, 2980884, 6777822, 8055660 ####[place] [address] RBC (Bld) [#/Vol] 4.0 E12/L Low 4.3-5.9 [facility] Comment on above: Performed By: #### 2 542994, 9027584, 76682783, 7061102, 0127573, 2262165, 4931774 ####[facility] [address] [place] [address] WBC corrected for nucl RBC Auto (Bld) [#/Vol] 5.5 E9/L Normal 4.0-11.0 [facility] Comment on above: Performed By: #### 2 786189, 8758924, 73106817, 5815690, 7383764, 8910170, 0414154 ####[facility] [address] [place] [address] Consent for Treatmenton 01-15 Consent for Treatment [id number]:127 Normal [facility] Hep Func Panelon 02-03-2023 Albumin/Globulin (S) [Mass conc ratio] 1.3 Normal 1.1-2.2 [facility] Comment on above: Performed By: #### 2 935068, 0576028, 27053459, 8190357, 1817619, 6357662, 5243536 ####[facility] [address] [place] [address] ALP [Catalytic activity/Vol] 101 Int._Unit/L High 21- [facility] Comment on above: Performed By: #### 2 451668, 3409409, 72859323, 4270481, 6129917, 5873482, 3694331 ####[facility] [address] [place] [address] ALT No additional P-5'-P [Catalytic activity/Vol] 32 Int._Unit/L Normal 6-46 [facility] Comment on above: Performed By: #### 2 669437, 7187389, 14430314, 8370609, 8388488, 6785761, 9946955 ####[facility] [address] [place] [address] AST [Catalytic activity/Vol] 38 Int._Unit/L Normal 5-43 [facility] Comment on above: Performed By: #### 2 064536, 3641681, 47583304, 5785856, 1348901, 0260081, 3694486 ####[facility] [address] [place] 3152457 Bilirubin [Mass/Vol] 0.4 mg/dL Normal 0.0-1.1 [facility] Comment on above: Performed By: #### 2 687632, 6642800, 32143231, 4463305, 5393814, 9020473, 6526714 ####[facility] [address] [place] [address] Bilirubin.direct [Mass/Vol] 0.1 mg/dL Normal 0.1-0.4 [facility] Comment on above: Performed By: #### 2 587274, 1740720, 75591808, 0955673, 8752051, 3544530, 2727303 ####[facility] [address] [place], [place] [address] Bilirubin.indirect [Mass or moles/Vol] 0.3 mg/dL Normal 0.1-0.9 [facility] Comment on above: Performed By: #### 2 771585, 9897019, 65916578, 2225397, 1569575, 0894758, 6471213 ####[facility] [address] [place] [address] Globulin (S) [Mass/Vol] 3.1 g/dL Normal 1.4-4.0 [facility] Comment on above: Performed By: #### 2 829706, 0001923, 34449131, 5710804, 6729329, 7402713, 4766437 ####[facility] [address] [place] [address] Albumin [Mass/Vol] 3.9 g/dL Normal 3.3-5.0 [facility] Comment on above: Performed By: #### 2 717620, 0343252, 78357380, 9532289, 8671891, 5152390, 1486804 ####[facility] [address] [place] [address] Protein [Mass/Vol] 7.0 g/dL Normal 6.0-7.8 [facility] Comment on above: Performed By: #### 2 841211, 0257553, 01149471, 8721791, 7196910, 7067963, 4617982 ####[facility] [address] [place] [address] Magnesiumon 02-03-2023 Magnesium [Mass/Vol] 1.1 mg/dL Abnormal 1.3-2.[address] [facility] Comment on above: Result Comment: Crit ical Result verified by repeat analysis\Critical Result S_M.[address] RUSSELL AT by MELISSA HACKETT And Read Back For Confirmation at: 02/03/2023 15:01:38 Performed By: #### 2 187613, 1429458, 96214637, 1954218, 8872872, 7762563, 9141778 ####[facility] [address] [place] [address] US Abdomen, Limitedon 2022 US Abdomen, Limited Exam Date/Time: 02/03/2023 10:21 EDT Reason for Exam: R74.8;Elevated LFTs Report IMPRESSION: FINDINGS SUGGESTING DIFFUSE FATTY INFILTRATION OF LIVER. PREVIOUS CHOLECYSTECTOMY. CLINICAL HISTORY: Elevated LFTs, R74.8. COMMENT: The liver is within normal limits in size and configuration. The echogenicity of the liver suggests diffuse fatty infiltration. No focal liver lesion is evident. No dilatation of intrahepatic bile ducts is noted. The common bile duct at the emma hepatis measures 7 mm in diameter, which is upper limits of normal. The patient is status post cholecystectomy. The common bile duct is obscured beyond the emma hepatis. No free fluid is noted collecting peripheral to the liver. Ordering Provider: , FINAL REPORT Dictated: 02/03/2023 11:35 am Jordi Castro M.D. Signed (Electronic Signature): 02/03/2023 11:35 am Signed by: Jordi Castro M.D. Transcribed by: CHRISTINE Technologist: Munir BELTRAN [facility] Vit B12on 02-03-2023 Cobalamin (Vitamin B12) [Mass/Vol] 378 pg/mL Normal 50-1500 [facility] Comment on above: Performed By: #### 2 202898, 2112228, 23207774, 8440195, 3133021, 9460256, 0007826 ####[facility] [address] [place] [address] eGFRon 02-03-2023 GFR/1.73 sq M.predicted among blacks MDRD (S/P/Bld) [Vol rate/Area] 49 mL/min/1.73 m2 Low >=59 [facility] Comment on above: Order Comment: Order added by Discern Expert. Result Comment: eGFR is race adjusted. AA=. Performed By: #### 2 072473, 5821670, 14046954, 7003694, 8048982, 7253254, 7443566 ####[facility] [address] [place] [address] GFR/1.73 sq M.predicted among non-blacks MDRD (S/P/Bld) [Vol rate/Area] 40 mL/min/1.73 m2 Low >=59 [facility] Comment on above: Order Comment: Order added by Discern Expert. Result Comment: Hopper Attendant gustavo kidney disease could be indicated at eGFR's of less than 60 mL/min/1.73m2. Kidney failure is indicated at less than 15 mL/min/1.73m2. Performed By: #### 2 082837, 9788609, 76568709, 6496463, 5316810, 9324266, 6084840 ####[facility] [address] [place] [address] A1C with Estimated Average G luon 01-16-2023 Glucose [Mass/Vol] 171 mg/dL Normal [facility] Comment on above: Order Comment: PT IS FASTING Result Comment: PERF ORMED BY: [facility] [address] PATHOLOGIST [employer]ACHINE TENDER THERESA MULLER M.D. Performed By: #### L IPID, CMP, A1C WT eA, CBC #### [address] HbA1c (Bld) [Mass fraction] 7.6 % High 4.3-5.6 [facility] Comment on above: Order Comment: PT IS FASTING Result Comment: Incr eased risk for diabetes: 5.7 - 6.4 diabetes: >6.4 glycemic control for adults with diabetes: <7.0 Performed By: #### L IPID, CMP, A1C WT eA, CBC #### [facility] [address] [place] [address] Albumin [Mass/volume] in Ser um or PlasmaOrdered By: Vinay Bunting on 01-16-2023 Albumin [Mass/Vol] 3.6 g/dL 3.2-5.5 [facility] Alkaline phosphatase [Enzyma tic activity/volume] in Serum or PlasmaOrdered By: Vinay Bunting on 01-16-2023 ALP [Catalytic activity/Vol] 100 U/L 32-92 [facility] Aspartate aminotransferase [ Enzymatic activity/volume] in Serum or PlasmaOrdered By: Vinay Bunting on 01-16-2023 AST [Catalytic activity/Vol] 31 U/L 10-42 [facility] Basophils Auto (Bld) [#/Vol] Ordered By: Vinay Bunting on 01-16-2023 Basophils (Bld) [#/Vol] 0.0 10*3/uL 0.0-0.2 [facility] Basophils/100 WBC Auto (Bld) Ordered By: Vinay Bunting on 01-16-2023 Basophils/100 WBC (Bld) 0.2 % . [facility] Bilirubin.total [Mass/volume ] in Serum or PlasmaOrdered By: Vinay Bunting on 01-16-2023 Bilirubin [Mass/Vol] 0.5 mg/dL 0.3-1.2 [facility] Calcium [Mass/volume] in Ser um or PlasmaOrdered By: Vinay Bunting on 01-16-2023 Calcium [Mass/Vol] 8.2 mg/dL 8.2-10.2 [facility] Carbon dioxide, total [Moles /volume] in Serum or PlasmaOrdered By: Vinay Bunhomer on 01-16-2023 CO2 [Moles/Vol] 28.0 mmol/L 22.0-30.0 [facility] Chloride [Moles/volume] in S hilda or PlasmaOrdered By: Vinay Bunting on 01-16-2023 Chloride [Moles/Vol] 101 mmol/L 95-114 [facility] Cholesterol [Mass/volume] in Serum or PlasmaOrdered By: Vinay Bunhomer on 01-16-2023 Cholesterol [Mass/Vol] 130 mg/dL 140-200 [facility] Comment on above: Chol less than 200 m g/dl low riskChol 201-239 mg/dl borderline riskChol 240 mg/dl and greater high risk Cholesterol in LDL Calc [Mas s/Vol]Ordered By: Vinay Matta on 01-16-2023 Cholesterol in LDL [Mass/Vol] 74 mg/dL 0-100 [facility] Comment on above: LDL ATP III CLASSIFI CATIONLDL less than 100 mg/dL OptimalLDL 100-129 mg/dL Near or above optimalLDL 130-159 mg/dL Borderline highLDL 160-189 mg/dL HighLDL greater than 189 mg/dL Very high Cholesterol in VLDL Calc [Ma ss/Vol]Ordered By: Vinay Matta on 01-16-2023 Cholesterol in VLDL [Mass/Vol] 21 mg/dL [facility] Coding Summary.on 01-16-2023 Coding Summary. [id number] Gh0bWw+ PGhlYWQ+YZ4OBRMzA48auZSdrX1 GQ9mWJH2HBKEZTZVWTL9YTM2hfU Z4AScgU1GchlBg ZpyxjTHuQF90DLi4UPI4yUdcBJq ydQ5toFQeG0m0TaRwNJ63cM52QS tfSPOhApH0OxUncofpqCWx E5dzJhIvmOItHao+PHRhYmxlIHd rFCZoEXuiPFLmKrOfjCyfMJ2jCq 9yZGVyLWNvbGxhcHNlOiBj a2fuGVUoYBenEA7haRktA8HxaGU 0CCZdu3p2Od27nEM+GFWhJMT3xH igOMgek678NrGre9ywZFH4 dHBhIBheQWF7Y70fm1L5IHOlAGZ zUTU9kGT4tI1itYspizzqC8KprS XkHeJ7RRP0uTPcsN6diNqz pecryW8pGho+A81RTY0WODSEQC0 XPmx2B0MpMcowqYC+KA96MQEfUS 64fPRrtORtx3vkeEn9TlOf FUUgYKN8gZshHZdml4FiQJXpQ43 oxCAbz7T6KYCshLdxlORmNhExaV U6cJ7yTQhhrjxqd4eexmor Inrkn8yqxs21vR16R68fZOglJEY lWVC4TXRbRAYrpWbjri8qrA4vHo 8+EFshu6vpz7ynuEx3CpHs YUJgkuTbxRjtTAZ8z8MrGc11U6N rtBpgp8OwDvb1zy85qIDvx1R4jP M6QYxsRGEylF0qKYxbDfR9 HPIgAgWjcY83dZGhROcvQo1cbIr lpDpvCA3nWMTbkihuSMKfkA9iFY JppPAltPjcCT8iBAVgynjb v360OgNfLNH4YSXbjSLbC7EsdI3 kYoAbKLMkRHWaK1YccVErUKezK7 58SPxvTgZ2FIOigdAaX4Ml IZTnqUbjNgH9o2H6Ef6Oi0Mritt mEIV7VCgeGSKtFsHqLrJhVmF2Z3 YnWzz8FHQmzGrtMK2eJ5Pj HTUcdbhvsvrwlHL1VYCoNONheK0 2pEYsOCamEv4dc5U2b331NYUcIS DqsV13Nx4nnQvjOCOzpGXC oR9vzafpn7imrbxkMtOhNCVeWCs 6HJm0NKYvwFfgLrYhNHW8LjP7TB M4ySTeiO1ooCixiyqmnP0v Oyc+E03izQ2dNWG5MNV4cqlgVYA yavJdSX45VZ49L2JmKtmigCRybC U+DVEresNnzKllEQ6yQxSb b8zvf7PiFXypG3RbWDUgLDxhBtu 6BINjUFO7yCF4qA6xSKNpNRjns1 M1uGC9R3RbwqFjpb2ue3ta DQFlRMcoU12hwJVxu7Q1JFEtkPG 0NRBrsIezIhItcL57Era+PGNvbG xem1PjDxqjc8ion1timDf2 MqLoFAFnfgRvcTazQVD7b8BjKn9 4A39yWFswIDIjQTAfZAVkDOIpcY nixm5axY7tNk0+PGNvbCB3 bKN4yD8jQFRyEsC3XUkyE725YxS gyFTrNkxbn7shd1xrnZr7IuDkLS KospVaaVrgCCE0b0FfHm58 C06yBKqqYSSqTTXuMGWjMBUjoUa mkf1rkM7oGf2+RJ3ex1xlum40kB 48dHI+ZIOyNPB0vZynNSuo KIFuuZ0hQIdiWyS4IEBkGyRxxP2 2vVPsMWyuAs5vgGdoxHonVM6wJA Zqtxtlb984YpJqh2qoTZEu lSPgRCymEXU1A00pw6Z5LZXaRQI rPBK3lQB3iP8uxMfjhkytuYOveO bdqpFieScwCTexIEroL877 IHRvcDsnPlBhdGllbnQgTmFtZTo 0F9TvQnd6GYNohCskTI8jlZVyIP lsYa3oqTtvvVpiSB1oSRAf dajoe014KePzs5ziMHMbxSXrAXy kIJJ3I37kk2M4AFAgHUTvVKI3xO U3sG0zcOqzvsjniPBseKdd eiYidSthZRadNDdmB821RWVaoVe eLhBplfGnZBWdwOR2FW46RZ52kD Rrl4J3mDH1K0HcNNUvynwi bqmpnKW9IWAuVFTpnI74Qi1uiFr cPj6dDFWvVMS8QMEozKDbU4MxnM 9tHoVcKUUvURJlU9LugIAg NKweK955KXfsVsG3TOGriyJuR3T sZVRctXnlBeW1r4Z7Oq6CR6D8PP 83MI54xWNbk1E1iUY0M9Hl ASQqenyhgvifjZO8BLPuRHDqoH3 2Ko9emCtbWu6tMJNsLZV2RJQaaZ WcQ1UvgG5yRmGcNMRyINNl L5YvdRQyMHmsB803WCtcCgQ7NWT sxvYsM7CbIRZqdAciHyW3d3R1Qo 0PHEb3NQ82TO74sXYmo8D3 iSE0V1GyPWEfarnzoeqtvGF7WAS bTBFuhH75Oc6teMmsVg3lLREkOB Z4GPCtjNOyI8FsoB5pUlZd JIOfJBNvC5YblSYaIIwbL399XRx uPyJ9BUJlwhKiU3JwBUNmtGwsGy W3v3D5Kw7VOKXcHY90EFV3 lEE0UC52XB70E3WtYlcxgJChnLG +PHRhYmxlIHdpZHRoPScxMDAlJy CdxDxbTT5hJb4nXDBfEKSb sYhfoXTtOpIjl9ptSYClQVtqUX0 zsXyfS2AkvZB7LRCqs7b6Qd34U4 2zN7KbaYE+LIUhdMG7yWE3 xD8oSdYeLcI9IOmzV721HzEvyNA qYvdpv8alw6lboSi3KfY8WOWewu SmsFymVSK1f1PvBe21X77b IHdpZHRoPSIxNSUiIHZhbGlnbj0 qmM6nJg3+QYDugCM1sJA4hO7sDq XeOjR4TKskQ784UxCwnCLs Flppd7zsh7iweCy4ZlKiFDZtobK kcOevYYQ0z6BnGa17U0BtuMrrm9 FfUka9yl56sMXdz9P9vNR0 F3MdCSKjxeoeiYUfjVbtFG2kFVV xznejLMBvwZ7tLYKjW7w4JgOsUx K5MBpaV4OjxtX7LUGuyDWd APobVOG2H52cr5D9OSExBOEvMTQ 7xIR0iB1seRdpqgvpzZFtgNvpep FzuQxcPZtgBIbnD556QBYl nUdtRCDweS7xWHQeiDIldCehXM5 wNTBpbjsnPkxBUktJTlMsIFBFR0 bWRN57GN39nOElo3C3pOA6 I4KuKFEbvtnlecfxsJS1MHLpQHB uiL47rWKhNJjmJk3qs8R1b972CU ItWWPopE66Rm3vbEmvLMKq hIYZrM8lsvjws0qamlgbDzXdYLE nSNk4UXg1WLWakKmnYuEqVRF0Dm Z9ASW4wFMapX1gxRrlljyq eP9eIxh+IVTdPCCiRSy2NWwkuMP +EHHyVQG1zKsdIYtlQZUrxJ4sYJ HrW2k1XtQdWoX6YJexN2Ac PTRcwmekZy90zF2pMrJlUyZ9HEk bT6EmdaB4MFVvsQLrAMadWYH4F3 5eo4B4LFBqOILqIUS6hPE8 hR6awRufgedniHGkfAgzcdHazOr kWPprWOglN423PCUeiUucFai9BG asKLTeTU59EP81cADrw1D3 vEO0D1ZdQKMgaoxlaluibAJ3ZZK qDVUzoM27zVYtINsgZy2pi1S4v3 78NQQuHHIauE56Yz6wsGro GJVwcXOGgJ6lcuezd9hxbecxIrR yJZOgZEp6SCb1WHYvmVlzIzDpWF B3AoU3ECV9rSCktZ8mcMwi iwcypE4kEhq+RpFkPFclYO20UH8 2yRWmc4B5sCH7B8TuPAUziyrijp biaCK3AKWnZUKfxM13bMBr YKzjRe8me2W0m350FWQpXLIeqE9 9Kx8jvCebBVZwnLRBsG4xbcskb9 ywnntiCvHiANYjNNx3LOf0 UHJjpIgdIlVjDPC2NdE8FBT7oTE nvV9cnKizufxvjR5jGdb+T3V0cG J6wWCwlSpsrJS+XB65hv87 U7ReXqshCxz3VJCgDOA7fGN6vX9 gCTOzZUwup0M2jAX2T1JzmxLcaz 8fq3prXWBuVPbhM79txSTq a6F8GYQrbXS5QCUgmAhePmLneE2 3Oyc+OMAieIovh5GiSjdjy7vxn2 veiYc0GvCySFOfvfWhgQiv WHG8d6VlZh50N93aCYtsMZQkPZN xNOWiVUCfeHzcfy2rmQ5rGe6+PG CfxKG3pUN5oC6hMbIjQeT2 GKcdX936YgDhwWBzLhdqd0zrq3v loYu6MyNqVLYoovDldDzyDPE0l4 SrTx69S2JbkYofr2BmUxg6 ew81mTVdc6L8nFT7S5FjKKQqulp llDHloEfeCG9nAPNsvpziRWNatP 4tLRAjL6x5XfBdKfW6FNlw N4PmuwU7PCGfaIHiTZOgnSNPsB5 phrvcu7dmfqkkVyCoBZPjEPb4MM b1SGGngCfrEgFtPMN8OrT6 IQX7cGPamG3zaVuasnzgzT7eAcm +GPh5m5mgyYXsWL9abMH1GC33CS 73fTEfa3T3gPO0Y5XaIPRx qpdpkjotzML5JQMwXRUcbL91Bj1 eaZllFk4cZEHfRWK0BIDbqDGmK0 NfqY4iRxWkYHLhYUKkA4Pv zNPrIGukV619LLfgFhF2LWAucfV oC9FmBPVbzYloZxS1z8I9Lz3JOF 16HF95KI07zUEmg5R0jFO8 N7OwNZEkduihmzospON0YQRqFGO rmL27Sj7xrAskRh2vBWCgKTA3US QcnCDbA3AygL7hXvXhIVWs BGAlZ4IwkWByCYwaN102VZqpYtD 2FHMsnnKjU2DjCYBqqFfbYuY3o6 K1Go8ZJd65GX26XL31bAEl p1Z7kLQ6T5YeSMZfxahzxeyqpHG 9ZRDsYLMlnA18Ft0caKaaUl8dTP RpQMW9PKYieANmB5SnjG8w XdBqRLNqIDCzG8WvjZYxGYaoW48 3JJywIsA9AZIbaxKoN0UmDLLjxN zkSxW9h6R9Dl9KSNqqkct9 R7EqGlvmwHM+WA58MOVfGW34sWS lwOJkm7sjdHt9AwSiDBZhUXJ7tH lsTDulc7QaWNEzC92kiXZt c2U6 (more content not included)... Normal [facility] Complete Blood Count Auto Di ffon 01-16-2023 Basophils (Bld) [#/Vol] 0.0 10*3/uL Normal 0.0-0.2 [facility] Comment on above: Order Comment: PT IS FASTING Result Comment: PERF ORMED BY: [place] [address] PATHOLOGIST [employer] THERESA MULLER M.D. Performed By: #### L IPID, CMP, A1C WTH eA, CBC #### [address] Basophils/100 WBC (Bld) 0.2 % Normal . [facility] Comment on above: Order Comment: PT IS FASTING Performed By: #### L IPID, CMP, A1C WTH eA, CBC #### [address] Eosinophils (Bld) [#/Vol] 0.1 10*3/uL Normal 0.0-0.45 [facility] Comment on above: Order Comment: PT IS FASTING Performed By: #### L IPID, CMP, A1C WTH eA, CBC #### [address] Eosinophils/100 WBC (Bld) 2.2 % Normal . [facility] Comment on above: Order Comment: PT IS FASTING Performed By: #### L IPID, CMP, A1C WTH eA, CBC #### [address] Erythrocyte distribution width (RBC) [Ratio] 17.4 % High 11.9-15.3 [facility] Comment on above: Order Comment: PT IS FASTING Performed By: #### L IPID, CMP, A1C WTH eA, CBC #### [address] Hematocrit (Bld) [Volume fraction] 31.4 % Low 34.0-46.4 [facility] Comment on above: Order Comment: PT IS FASTING Performed By: #### L IPID, CMP, A1C WTH eA, CBC #### [address] Hemoglobin (Bld) [Mass/Vol] 10.6 g/dL Low 11.8-15.4 [facility] Comment on above: Order Comment: PT IS FASTING Performed By: #### L IPID, CMP, A1C WTH eA, CBC #### [facility] [address] [place] [address] [place] Lymphocytes (Bld) [#/Vol] 1.3 10*3/uL Normal 1.00-4.8 [facility] Comment on above: Order Comment: PT IS FASTING Performed By: #### L IPID, CMP, A1C WTH eA, CBC #### [facility] [address] Lymphocytes/100 WBC (Bld) 22.6 % Normal . [facility] Comment on above: Order Comment: PT IS FASTING Performed By: #### L IPID, CMP, A1C WTH eA, CBC #### [facility] [address] [place] [address] MCH (RBC) [Entitic mass] 28.7 pg Normal 24.7-34.3 [facility] [facility] Comment on above: Order Comment: PT IS FASTING Performed By: #### L IPID, CMP, A1C WTH eA, CBC #### [facility] [address] [place] [address] MCV (RBC) [Entitic vol] 85.1 fL Normal 80-100 [facility] Comment on above: Order Comment: PT IS FASTING Performed By: #### L IPID, CMP, A1C WTH eA, CBC #### [address] Mean Corpuscular HGB Conc 33.7 g/dL Normal 32.0-35.0 [facility] Comment on above: Order Comment: PT IS FASTING Performed By: #### L IPID, CMP, A1C WTH eA, CBC #### [facility] [address] [place] [address] [place] Monocytes (Bld) [#/Vol] 0.3 10*3/uL Normal 0.0-0.8 [facility] Comment on above: Order Comment: PT IS FASTING Performed By: #### L IPID, CMP, A1C WTH eA, CBC #### [facility] [address] [place] [address] [place] Monocytes/100 WBC (Bld) 4.5 % Normal . [facility] Comment on above: Order Comment: PT IS FASTING Performed By: #### L IPID, CMP, A1C WTH eA, CBC #### [facility] [address] [place] [address] [place] Neutrophils (Bld) [#/Vol] 4.0 10*3/uL Normal 1.8-7.7 [facility] Comment on above: Order Comment: PT IS FASTING Performed By: #### L IPID, CMP, A1C WTH eA, CBC #### [facility] [address] Neutrophils/100 WBC (Bld) 70.5 % Normal . [facility] Comment on above: Order Comment: PT IS FASTING Performed By: #### L IPID, CMP, A1C WTH eA, CBC #### [address] NRBC% 0.1 /100{WBC} Normal 0-0.5 [facility] Comment on above: Order Comment: PT IS FASTING Performed By: #### L IPID, CMP, A1C WTH eA, CBC #### [facility] [address] [place] [address] [place] Platelet mean volume (Bld) [Entitic vol] 7.4 fL Normal 6.3-10.7 [facility] Comment on above: Order Comment: PT IS FASTING Performed By: #### L IPID, CMP, A1C WTH eA, CBC #### [facility] [address] [place] [address] [place] Platelets (Bld) [#/Vol] 152 10*3/uL Normal 150-450 [facility] Comment on above: Order Comment: PT IS FASTING Performed By: #### L IPID, CMP, A1C WTH eA, CBC #### [facility] [address] [place] [address] [place] RBC (Bld) [#/Vol] 3.69 10*6/uL Normal 3.60-5.00 [facility] Comment on above: Order Comment: PT IS FASTING Performed By: #### L IPID, CMP, A1C WTH eA, CBC #### [facility] [address] [place] [address] WBC (Bld) [#/Vol] 5.7 10*3/uL Normal 3.8-11.6 [facility] Comment on above: Order Comment: PT IS FASTING Performed By: #### L IPID, CMP, A1C WTH eA, CBC #### [facility] [address] Comprehensive Metabolic Pane palmer 01-16-2023 Albumin [Mass/Vol] 3.6 g/dL Normal 3.2-5.5 [facility] Comment on above: Order Comment: PT IS FASTING Performed By: #### L IPID, CMP, A1C WTH eA, CBC #### [facility] [address] [place] [address] Albumin/Globulin [Mass ratio] 1.6 {ratio} Normal [facility] Comment on above: Order Comment: PT IS FASTING Performed By: #### L IPID, CMP, A1C WTH eA, CBC #### [facility] [address] [place] [address] ALP [Catalytic activity/Vol] 100 U/L High 32-92 [facility] Comment on above: Order Comment: PT IS FASTING Performed By: #### L IPID, CMP, A1C WTH eA, CBC #### [address] ALT [Catalytic activity/Vol] 26 U/L Normal 10-60 [facility] Comment on above: Order Comment: PT IS FASTING Performed By: #### L IPID, CMP, A1C WTH eA, CBC #### [facility] [address] [place] [address] [place] Anion gap [Moles/Vol] 16.0 mmol/L High 6.0-15.0 [facility] Comment on above: Order Comment: PT IS FASTING Performed By: #### L IPID, CMP, A1C WTH eA, CBC #### [facility] [address] [place] [address] AST [Catalytic activity/Vol] 31 U/L Normal 10-42 [facility] Comment on above: Order Comment: PT IS FASTING Performed By: #### L IPID, CMP, A1C WTH eA, CBC #### [facility] [address] [place] [address] [place] Bilirubin [Mass/Vol] 0.5 mg/dL Normal 0.3-1.2 [facility] Comment on above: Order Comment: PT IS FASTING Performed By: #### L IPID, CMP, A1C WTH eA, CBC #### [facility] [address] [place] [address] [place] Calcium [Mass/Vol] 8.2 mg/dL Normal 8.2-10.2 [facility] Comment on above: Order Comment: PT IS FASTING Performed By: #### L IPID, CMP, A1C WTH eA, CBC #### [facility] [address] Chloride [Moles/Vol] 101 mmol/L Normal 95-114 [facility] Comment on above: Order Comment: PT IS FASTING Performed By: #### L IPID, CMP, A1C WTH eA, CBC #### [facility] [address] [place] [address] [place] CO2 [Moles/Vol] 28.0 mmol/L Normal 22.0-30.0 [facility] Comment on above: Order Comment: PT IS FASTING Performed By: #### L IPID, CMP, A1C WTH eA, CBC #### [facility] [address] Creatinine [Mass/Vol] 1.51 mg/dL High 0.44-1.03 [facility] Comment on above: Order Comment: PT IS FASTING Performed By: #### L IPID, CMP, A1C WTH eA, CBC #### [facility] [address] [place] [address] [place] Estimated GFR ( Rashmi 41 Normal [facility] Comment on above: Order Comment: PT IS FASTING Result Comment: GFR estimated reference range: According to KDOQI guidelines, <60 ml/min/1.73m2 is sufficient to diagnose a patient with chronic kidney disease. Performed By: #### L IPID, CMP, A1C WTH eA, CBC #### [facility] [address] [place] [address] [place] Estimated GFR (Non- Am 34 Normal [facility] Comment on above: Order Comment: PT IS FASTING Performed By: #### L IPID, CMP, A1C WTH eA, CBC #### [facility] [address] [place] [address] [place] Globulin (S) [Mass/Vol] 2.3 g/dL [facility] Comment on above: Order Comment: PT IS FASTING Performed By: #### L IPID, CMP, A1C WTH eA, CBC #### [facility] [address] [place] [address] [place] Glucose [Mass/Vol] 162 mg/dL High 70-100 [facility] Comment on above: Order Comment: PT IS FASTING Result Comment: [place] Glucose Reference Range is dependent on time and content of last meal. Glucose of more than 200 mg/dL in a nonstressed, ambulatory subject supports the diagnosis of Diabetes Mellitus. ADA recommended reference range Performed By: #### L IPID, CMP, A1C WTH eA, CBC #### [facility] [address] [place] [address] [place] Potassium [Moles/Vol] 4.0 mmol/L Normal 3.5-5.1 [facility] Comment on above: Order Comment: PT IS FASTING Performed By: #### L IPID, CMP, A1C WTH eA, CBC #### [facility] [address] [place] [address] [place] Protein [Mass/Vol] 5.9 g/dL Low 6.1-7.9 [facility] Comment on above: Order Comment: PT IS FASTING Performed By: #### L IPID, CMP, A1C WTH eA, CBC #### [facility] [address] [place] [address] [place] Sodium [Moles/Vol] 141 mmol/L Normal 136-146 [facility] Comment on above: Order Comment: PT IS FASTING Performed By: #### L IPID, CMP, A1C WTH eA, CBC #### [facility] [address] [place] [address] [place] Urea nitrogen [Mass/Vol] 42 mg/dL High 9-23 [facility] Comment on above: Order Comment: PT IS FASTING Performed By: #### L IPID, CMP, A1C WTH eA, CBC #### [facility] [address] Creatinine and Glomerular fi ltration rate.predicted panel (S/P/Bld)Ordered By: Vinay Matta on 01-16-2023 Creatinine [Mass/Vol] 1.51 mg/dL 0.44-1.03 [facility] Eosinophils Auto (Bld) [#/Vo l]Ordered By: Vinay Bunhomer on 01-16-2023 Eosinophils (Bld) [#/Vol] 0.1 10*3/uL 0.0-0.45 [facility] Eosinophils/100 WBC Auto (Bl d)Ordered By: Vinay Bunting on 01-16-2023 Eosinophils/100 WBC (Bld) 2.2 % . [facility] Erythrocyte distribution wid th Auto (RBC) [Ratio]Ordered By: Vinay Matta on 01-16-2023 Erythrocyte distribution width (RBC) [Ratio] 17.4 % 11.9-15.3 [facility] Estimated glomerular filtrat ion rate (GFR) non- AmericanOrdered By: Vinay Matta on 01-16-2023 GFR/1.73 sq M.predicted among non-blacks MDRD (S/P/Bld) [Vol rate/Area] 34 mL/Min [facility] Globulin Calc (S) [Mass/Vol] Ordered By: Vinay Matta on 01-16-2023 Globulin (S) [Mass/Vol] 2.3 g/dL [facility] Glucose [Mass/volume] in Ser um or PlasmaOrdered By: Vinay Matta on 01-16-2023 Glucose [Mass/Vol] 162 mg/dL 70-100 [facility] Comment on above: ADA recommended refe rence rangeRandom Glucose Reference Range is dependent on time and content of last meal. Glucose of more than 200 mg/dL in a nonstressed, ambulatory subject supports the diagnosis of Diabetes Mellitus. Glucose mean value [Mass/vol ume] in Blood Estimated from glycated hemoglobinOrdered By: Vinay Matta on 01-16-2023 Average glucose Estimated from glycated hemoglobin (Bld) [Mass/Vol] 171 mg/dL [facility] Hematocrit Auto (Bld) [Volum e fraction]Ordered By: Vinay Matta on 01-16-2023 Hematocrit (Bld) [Volume fraction] 31.4 % 34.0-46.4 [facility] Hemoglobin A1c percentageOrd ered By: Vinay Matta on 01-16-2023 HbA1c (Bld) [Mass fraction] 7.6 % 4.3-5.6 [facility] Comment on above: Increased risk for d iabetes: 5.7 - 6.4diabetes: >6.4glycemic control for adults with diabetes: <7.0 Hemoglobin [Mass/volume] in BloodOrdered By: Vinay Matta on 01-16-2023 Hemoglobin (Bld) [Mass/Vol] 10.6 g/dL 11.8-15.4 [facility] Leukocytes [#/volume] correc remberto for nucleated erythrocytes in Blood by Automated counOrdered By: Vinay Matta on 01-16-2023 WBC corrected for nucl RBC Auto (Bld) [#/Vol] 5.7 10*3/uL 3.8-11.6 [facility] Lipid Panelon 01-16-2023 Cholesterol [Mass/Vol] 130 mg/dL Low 140-200 [facility] Comment on above: Order Comment: PT IS FASTING Result Comment: Chol less than 200 mg/dl low risk Chol 201-239 mg/dl borderline risk Chol 240 mg/dl and greater high risk Performed By: #### L IPID, CMP, A1C WT eA, CBC #### [facility] [address] [place] [address] [place] Cholesterol in HDL [Mass/Vol] 34 mg/dL Low 35-85 [facility] Comment on above: Order Comment: PT IS FASTING Result Comment: HDL CHOL ATP-III CLASSIFICATION Cardiovascular Risk HDL > or equal to 60 mg/dL LOW HDL < 40 mg/dL HIGH Performed By: #### L IPID, CMP, A1C WTH eA, CBC #### [facility] [address] [place] [id number] [place] Cholesterol.total/Chol esterol in HDL [Mass ratio] 3.8 {ratio} Normal <5.0 [facility] Comment on above: Order Comment: PT IS FASTING Result Comment: PERF ORMED BY: [place] [address] PATHOLOGIST [employer]ACH[employer] TENDER THERESA MULLER M.D. Performed By: #### L IPID, CMP, A1C WTH eA, CBC #### [facility] [address] LDL Cholesterol,Calculated 74 mg/dL Normal 0-100 [facility] Comment on above: Order Comment: PT IS FASTING Result Comment: LDL ATP III CLASSIFICATION LDL less than 100 mg/dL Optimal LDL 100-129 mg/dL Near or above optimal LDL 130-159 mg/dL Borderline high LDL 160-189 mg/dL High LDL greater than 189 mg/dL Very high Performed By: #### L IPID, CMP, A1C WTH eA, CBC #### [facility] [address] [place] [address] Triglyceride w/Reflex 109 mg/dL Normal 35-149 [facility] Comment on above: Order Comment: PT IS FASTING Result Comment: TRIG ATP III CLASSIFICATION TRIG less than 150 mg/dL Normal TRIG 150-199 mg/dL Borderline high TRIG 200-500 mg/dL High TRIG greater than 500 mg/dL Very high Standard traceable to the Center for Disease Conrtrol and Prevention (CDC) test method. Performed By: #### L IPID, CMP, A1C WTH eA, CBC #### [facility] [address] [place] [address] VLDL CHOLESTEROL 21 mg/dL Normal [facility] Comment on above: Order Comment: PT IS FASTING Performed By: #### L IPID, CMP, A1C WTH eA, CBC #### [facility] [address] [place] [address] [place] Lymphocytes Auto (Bld) [#/Vo l]Ordered By: Vinay Matta on 01-16-2023 Lymphocytes (Bld) [#/Vol] 1.3 10*3/uL 1.00-4.8 [facility] Lymphocytes/100 WBC Auto (Bl d)Ordered By: Vinay Matta on 01-16-2023 Lymphocytes/100 WBC (Bld) 22.6 % . [facility] MCH Auto (RBC) [Entitic mass ]Ordered By: Vinay Bunhomer on 01-16-2023 MCH (RBC) [Entitic mass] 28.7 pg 24.7-34.3 [facility] MCHC Auto (RBC) [Mass/Vol]Or dered By: Vinya Bunting on 01-16-2023 MCHC (RBC) [Mass/Vol] 33.7 g/dL 32.0-35.0 [facility] MCV Auto (RBC) [Entitic vol] Ordered By: Vinay Bunting on 01-16-2023 MCV (RBC) [Entitic vol] 85.1 fL 80-100 [facility] Monocytes Auto (Bld) [#/Vol] Ordered By: Vinay Bunting on 01-16-2023 Monocytes (Bld) [#/Vol] 0.3 10*3/uL 0.0-0.8 [facility] Monocytes/100 WBC Auto (Bld) Ordered By: Vinay Bunting on 01-16-2023 Monocytes/100 WBC (Bld) 4.5 % . [facility] Neutrophils Auto (Bld) [#/Vo l]Ordered By: Vinay Bunting on 01-16-2023 Neutrophils (Bld) [#/Vol] 4.0 10*3/uL 1.8-7.7 [facility] Neutrophils/100 WBC Auto (Bl d)Ordered By: Vinay Bunting on 01-16-2023 Neutrophils/100 WBC (Bld) 70.5 % . [facility] No Panel InformationOrdered By: Vinay Matta on 01-16-2023 Estimated GFR () 41 mL/Min [facility] Comment on above: GFR estimated refere nce range: According to KDOQI guidelines, <60 ml/min/1.73m2 is sufficient to diagnose a patient with chronic kidney disease. Pharmacy Creatinine Clearance (Chem N/A [facility] Nucleated erythrocytes [Pres ence] in Blood by Automated countOrdered By: Vinay Matta on 01-16-2023 Nucleated RBC Auto Ql (Bld) 0.1 /100{WBC} 0-0.5 [facility] Platelet mean volume Auto (B ld) [Entitic vol]Ordered By: Vinay Bunting on 01-16-2023 Platelet mean volume (Bld) [Entitic vol] 7.4 fL 6.3-10.7 [facility] Platelets Auto (Bld) [#/Vol] Ordered By: Vinay Bunting on 01-16-2023 Platelets (Bld) [#/Vol] 152 10*3/uL 150-450 [facility] Potassium [Moles/volume] in Serum or PlasmaOrdered By: Vinay Bunting on 01-16-2023 Potassium [Moles/Vol] 4.0 mmol/L 3.5-5.1 [facility] Protein [Mass/volume] in Ser um or PlasmaOrdered By: Vinay Bunting on 01-16-2023 Protein [Mass/Vol] 5.9 g/dL 6.1-7.9 [facility] RBC Auto (Bld) [#/Vol]Ordere d By: Vinay Bunting on 01-16-2023 RBC (Bld) [#/Vol] 3.69 10*6/uL 3.60-5.00 [facility] Serum or plasma alanine stubbs otransferase measurement without P-5'-P (enzymatic activiOrdered By: Vinay Bunting on 01-16-2023 ALT No additional P-5'-P [Catalytic activity/Vol] 26 U/L 10-60 [facility] Serum or plasma albumin/glob ulin mass ratioOrdered By: Vinay Bunting on 01-16-2023 Albumin/Globulin [Mass ratio] 1.6 {ratio} [facility] Serum or plasma anion gap de terminationOrdered By: Vinay Bunting on 01-16-2023 Anion gap [Moles/Vol] 16.0 mmol/L 6.0-15.0 [facility] Serum or plasma high density lipoprotein (HDL) cholesterol measurementOrdered By: Vinay Bunting on 01-16-2023 Cholesterol in HDL [Mass/Vol] 34 mg/dL 35-85 [facility] Comment on above: HDL CHOL ATP-III CLA SSIFICATION Cardiovascular RiskHDL > or equal to 60 mg/dL LOWHDL < 40 mg/dL HIGH Serum or plasma total choles terol/high density lipoprotein (HDL) cholesterol mass ratOrdered By: Vinay Matta on 01-16-2023 Cholesterol.total/Chol esterol in HDL [Mass ratio] 3.8 {ratio} <5.0 [facility] Sodium [Moles/volume] in Ser um or PlasmaOrdered By: Vinay Bunting on 01-16-2023 Sodium [Moles/Vol] 141 mmol/L 136-146 [facility] Triglyceride [Mass/volume] i n Serum or PlasmaOrdered By: Vinay Bunting on 01-16-2023 Triglyceride [Mass/Vol] 109 mg/dL 35-149 [facility] Comment on above: TRIG ATP III CLASSIF ICATIONTRIG less than 150 mg/dL NormalTRIG 150-199 mg/dL Borderline highTRIG 200-500 mg/dL High TRIG greater than 500 mg/dL Very highStandard traceable to the Center for Disease Conrtrol and Prevention (CDC) test method. Urate [Mass/volume] in Serum or PlasmaOrdered By: Vinay Matta on 01-16-2023 Urate [Mass/Vol] 5.7 mg/dL 2.6-7.2 [facility] Urea nitrogen [Mass/volume] in Serum or PlasmaOrdered By: Vinay Bunhomer on 01-16-2023 Urea nitrogen [Mass/Vol] 42 mg/dL 9-23 [facility] Uric Acidon 01-16-2023 Urate [Mass/Vol] 5.7 mg/dL Normal 2.6-7.2 [facility] Comment on above: Order Comment: PT IS FASTING Performed By: #### L IPID, CMP, A1C [facility] eA, CBC #### [facility] [address] WBC Auto (Bld) [#/Vol]Ordere d By: Vinay Matta on 01-16-2023 WBC (Bld) [#/Vol] 5.7 10*3/uL 3.8-11.6 [facility] Consent for Treatmenton 12-18 Consent for Treatment [id number] Normal [facility] NM Gastric Emptying Studyon 01-08-2023 NM Gastric Emptying Study Exam Date/Time: 01/08/2023 13:26 EST Reason for Exam: nausea;Other (please specify) Report IMPRESSION: GASTRIC EMPTYING IS WITHIN NORMAL LIMITS. CLINICAL HISTORY: nausea. COMMENT: Please refer to the technical information and data measurements detailed below. Ordering Provider: , FINAL REPORT Dictated: 01/08/2023 5:00 pm Jordi Castro M.D. Signed (Electronic Signature): 01/08/2023 5:00 pm Signed by: Jordi Castro M.D. Transcribed by: CHRISTINE Technologist: EDMOND Technical Comments Dose (mCi Tc99m Sulfur Colloid): 0.8 Dose Administered With: 4oz egg beaters, 2 slices of toast, 28g jelly, and 120ml water Time Frame Required to Ingest the Meal (mins): 10 % Remainin.5 hr (Lower Limit 70%) 80.6 1.0 hr (Lower Limit 30%, Upper Limit 90%) 69.7 2.0 hr (Upper Limit 60%) 46.1 3.0 hr (Upper Limit 30%) 32 4.0 hr (Upper Limit 10%) 8 Normal [facility] Glucose Glucometer (BldC) [M ass/Vol]Ordered By: Rafael Edouard on 12-29-2022 Glucose [Mass/Vol] 165 mg/dL [facility] Comment on above: Random Glucose Refer ence Range is dependent on time and content of last meal. Glucose of more than 200 mg/dL in a nonstressed, ambulatory subject supports the diagnosis of Diabetes Mellitus. Glucose Poct Glucometerson 0 12-29-2022 Glucose [Mass/Vol] 165 mg/dL Normal [facility] Comment on above: Result Comment: [place] Glucose Reference Range is dependent on time and content of last meal. Glucose of more than 200 mg/dL in a nonstressed, ambulatory subject supports the diagnosis of Diabetes Mellitus. PERFORMED BY: [facility] [address] [place] [address] PATHOLOGIST [employer] MACHINE TENDER THERESA MULLER M.D. Performed By: #### L IPID, CMP, A1C WTH eA, CBC #### [facility] [address] [place] [id number] [facility] 12-29-2022 L ------- Specimen: [id number] Received: 12/30/22 Status: THERESA Kaufman Num: [id number] Spec Type: Surgical Subm Dr: Rafael Edouard MD Tissues: A Skin-Other than Cyst, tag, debridement or plastic repair (ABDOMINAL SKIN [facility] Procedures: ARIAN/Mark Garcia/Ruchi L4 Age/ Patient Sex Location Account Attending Physician Anh Tejeda 71/F [place] [id number] Rafael Edouard MD SPEC NUM: [id number] RECD: 12/30/22 STATUS: THERESA KAUFMAN NUM: [id number] KATYA: 12/29/22- [facility] DR: Rafael Edouard MD ENTERED: 12/30/22 [facility] DR: SPEC TYPE: Surgical DEPT: S ENTERED BY: [id number] RECV BY: [id number] ORDERED: HE/2, Gross/Micro L4 ORDERED: HE/2, Gross/Micro L4 Pathological Diagnosis Skin, abdomen, excision: - BENIGN SKIN WITH AN ACTIVE ULCER AND REACTIVE CHANGES. - NEGATIVE FOR MALIGNANCY. Clinical Information Abdominal ulcer Gross Description Received in formalin labeled with the patient's name, number and abdominal wall skin with ulcer is a 4.3 x 1.3 x 0.2 cm ellipse of cee white skin with a central 1.2 x 0.8 cm cee- escobar ulcerated lesion. The specimen is inked and sectioned transversely. Addiction Nurse sections are submitted in 2 cassettes as follows: A1 - Central transverse sections of ulcer A2 - Radial tips Microscopic Description Two glass slides with H E stained material have been examined. The microscopic findings support the above pathologic diagnosis. Specimen: [id number] Received: 12/30/22 Status: THERESA Kaufman Num: [id number] Spec Type: Surgical Subm Dr: Rafael Edouard MD Tissues: A Skin-Other than Cyst, tag, debridement or plastic repair (ABDOMINAL SKIN [facility] Procedures: HE/2, Gross/Micro L4 Patient: Anh Tejeda [id number] (Continued) Specimen: [id number] Received: 12/30/22 (Continued) Signed (signature on file) Carly Larkin MD 12/31/22 1404 Specimen: [id number] Received: 12/30/22 Status: VIETFawad Kaufman Num: [id number] Spec Type: Surgical Subm Dr: Rafael Edouard MD Tissues: A Skin-Other than Cyst, tag, debridement or plastic repair (ABDOMINAL SKIN [facility] Procedures: HE/Radha, Mark/Ruchi L4 Patient: Anh Tejeda [id number] (Continued) Specimen: [id number] Received: 12/30/22 (Continued) CPT Codes 73379 Specimen: [id number] Received: 12/30/22 Status: THERESA Keatingisidoro Num: [id number] Spec Type: Surgical Subm Dr: Rafael Edouard MD Tissues: A Skin-Other than Cyst, tag, debridement or plastic repair (ABDOMINAL SKIN [facility] Procedures: HE/Mark Garcia/Ruchi L4 Patient: Anh Tejeda [id number] (Continued) Signed (signature on file) Carly Larkin MD 12/31/22 1404 [facility] Ambulatory Visit Summaryon 0 12-24-2022 Ambulatory Visit Summary ANH TEJEDA :1950 Visit Date:12/24/2022 Ambulatory Visit Instructions Your Diagnosis Chronic GERD Anemia History of rectal polyps Elevated alkaline phosphatase level Nausea B12 deficiency Your Care Team Attending Physician - Nisa Miranda CNP Primary Care Physician - VINAY MATTA DO This Is Your Medications List Contact prescribing physician if questions or concerns allopurinol (allopurinol 100 mg Tab) ascorbic acid (ascorbic acid 500 mg Tab) aspirin (aspirin 81 mg Oral EC Tab) atenolol (atenolol 50 mg Tab) atorvastatin (atorvastatin 20 mg Tab) cholecalciferol (cholecalciferol 1000 intl units oral tablet) diclofenac (diclofenac sodium 75 mg Oral EC Tab) furosemide (furosemide 20 mg Tab) furosemide (furosemide 20 mg Tab) gabapentin (gabapentin 300 mg Cap) glimepiride (glimepiride 2 mg Tab) hydrochlorothiazide-lisinop ril (hydrochlorothiazide-lisino pril 12.5 mg-20 mg Tab) metformin (metformin 1000 mg oral tablet) omeprazole (omeprazole 20 mg Cap-DR) ropinirole (ropinirole 0.5 mg Tab) Procedures Performed Colonoscopy (06/12/2022), Esophagogastroduodenoscopy (06/12/2022). Discharge Vitals Temperature (Temporal Artery) 36 ?C Heart Rate (Peripheral) 77 Blood Pressure 132/75 Height 160 cm Height 63 in Weight 97.2 kg Weight 213.84 lb BMI 37.97 What to do next Scheduled Follow-Up Appointments Thursday 10:00 AM EDT With: Where: [facility] Thursday 9:20 AM EDT With: Nisa Miranda CNP Where: [facility] Normal [facility] Gastroenterology Office/Clin ic Noteon 12-24-2022 Gastroenterology Office/Clinic Note Chief Complaint Followup from 09/19/22. HPI Staff Patient is a 71 year old female here today to followup from 09/19/22 office visit for anemia, GERD and diverticulosis. History of Present Illness Patient is a 71-year-old female who presents for follow-up. Patient was previously evaluated 09/19/2022 and has PMH of gout, hypertension, DM, type 2, HLD?managed by patient's PCP. Patient was previously evaluated in ER for chest pain 01/2022 at [facility] [place] and had negative stress test and pantoprazole had helped her chest pain. Patient also with history of anemia and had iron studies completed at outside facility 06/2022 that revealed elevated reticulocyte count, slightly elevated alk phos?patient reported she was following up with her PCP regarding, normal iron level, normal ferritin level, normal folate level. Labs from 01/2022 revealed low H&H of 10.4/30.6, platelets low at 138, and RDW elevated at 17.2. During visit with me 09/2022, she reported she was doing well and that her acid reflux was well controlled with omeprazole 20 mg daily. EGD completed 06/12/2022 revealed normal esophagus, multiple gastric polyps that biopsy revealed were fundic gland polyps, normal duodenum. Colonoscopy completed 06/12/2022 revealed tubular adenoma removed from rectum, diverticulosis, hemorrhoids?Dr. Russell recommended for patient to have repeat colonoscopy in 7 years?2028. Patient was previously educated regarding fiber supplementation daily. Patient was also ordered repeat labs that were completed 09/19/2022 and revealed decreased H&H of 9.1/27.6. Review of outside records indicated patient had previous labs 12/12/2022 that revealed elevated alk phos of 142, normal AST and ALT, outside records also revealed patient had labs 11/2022 that revealed normal ferritin level, normal iron level, normal TIBC, and normal transferrin level?no indicated patient is following up with hematology regarding. Review of outside record indicated patient had previous B12 level that was low 10/01/2022. Review of outside records also indicates patient was previously evaluated by hematology?KARO Chaudhari 12/12/22. Patient was previously referred to hematology regarding iron deficiency anemia and receives Venofer with KARO Chaudhari- hematology and is to follow-up with her in 2 months per outside record. During today's visit, patient reports she is doing well. She reports acid reflux is controlled with prilosec 20mg daily. Reports rare occasions of acid reflux, occurring 1 time a month. Is having nausea 1-2 times a week without regard to food over the last 2 months. Hx. cholecystectomy 40 years ago. Is having 1 formed BM daily. Is not taking fiber supplementation. Denies black/bloody stools, diarrhea, fevers, and denies having any other GI complaints. Review of Systems PHQ Score Initial Depression Screen Score: 0 ROS - Provider Constitutional: no fever. Skin: no Jaundice. ENMT: Denies dysphagia. Respiratory: no shortness of breath. Cardiovascular: no chest pain. Gastrointestinal: yes nausea, no vomiting, no diarrhea, no GI bleeding. Physical Exam Vitals & Measurements T: 36 ?C(Temporal Artery) HR: 77(Peripheral) BP: 132/75 HT: 63 in HT: 160 cm WT: 97.2 kg WT: 213.84 lb BMI: 37.97 General: Well developed, well nourished, in no acute distress Head: Normocephalic/atraumatic Lungs: Normal respiratory effort and clear to auscultation Cardio: Regular rate and rhythm, normal S1 and S2, no murmur, no rub Abdomen: Soft, non-distended, non-tender. Normoactive bowel sounds present in all 4 abdominal quadrants, bilaterally. Mental Status: Alert and oriented x3. Normal mood and affect Assessment/Plan 1. Chronic GERD (K21.9: Gastro-esophageal reflux disease without esophagitis) Controlled with prilosec 20mg daily. EGD completed 06/12/2022 revealed normal esophagus, multiple gastric polyps that biopsy revealed were fundic gland polyps, normal duodenum. Continue prilosec 20mg daily. B12 level low at 240 09/2022 per outside records. Educated to start B12 supplementation OTC oral 1,000mcg. daily. Ordered repeat B12 level in 3 months to evaluate for improvement in B12 level. Ordered magnesium level to evaluate for deficiencies and BMP to evaluate renal function while on PPI long-term. Ordered: Basic Metabolic Panel Magnesium Level 2. Anemia (D64.9: Anemia, unspecified) EGD completed 06/12/2022 revealed normal esophagus, multiple gastric polyps that biopsy revealed were fundic gland polyps, normal duodenum. Colonoscopy completed 06/12/2022 revealed tubular adenoma removed from rectum, diverticulosis, hemorrhoids?Dr. Russell recommended for patient to have repeat colonoscopy in 7 years?2028. Labs completed 09/19/2022 and revealed decreased H&H of 9.1/27.6. Review of outside records indicated patient had previous labs 12/12/2022 that revealed elevated alk phos of 142, normal AST and ALT, outside records also revealed patient had labs 11/2022 that revealed normal ferritin level, normal iron level, normal (more content not included)... Normal [facility] Comment on above: Result Comment: Elec tronically Signed By: Nisa Miranda CNP\.br\Date and Time Signed: 12/24/22 10:33 EST Patient Educationon 12-24-19 Patient Education Gastroesophageal Ref lux Disease, Adult Gastroesophageal reflux (DANIELA) happens when acid from the stomach flows up into the tube that connects the mouth and the stomach (esophagus). Normally, food travels down the esophagus and stays in the stomach to be digested. However, when a person has DANIELA, food and stomach acid sometimes move back up into the esophagus. If this becomes a more serious problem, the person may be diagnosed with a disease called gastroesophageal reflux disease (GERD). GERD occurs when the reflux: ? Happens often. ? Causes frequent or severe symptoms. ? Causes problems such as damage to the esophagus. When stomach acid comes in contact with the esophagus, the acid may cause soreness (inflammation) in the esophagus. Over time, GERD may create small holes (ulcers) in the lining of the esophagus. What are the causes? This condition is caused by a problem with the muscle between the esophagus and the stomach (lower esophageal sphincter, or LES). Normally, the LES muscle closes after food passes through the esophagus to the stomach. When the LES is weakened or abnormal, it does not close properly, and that allows food and stomach acid to go back up into the esophagus. The LES can be weakened by certain dietary substances, medicines, and medical conditions, including: ? Tobacco use. ? . ? Having a hiatal hernia. ? Alcohol use. ? Certain foods and beverages, such as coffee, chocolate, onions, and peppermint. What increases the risk? You are more likely to develop this condition if you: ? Have an increased body weight. ? Have a connective tissue disorder. ? Use NSAID medicines. What are the signs or symptoms? Symptoms of this condition include: ? Heartburn. ? Difficult or painful swallowing. ? The feeling of having a lump in the throat. ? A?bitter taste in the mouth. ? Bad breath. ? Having a large amount of saliva. ? Having an upset or bloated stomach. ? Belching. ? Chest pain. Different conditions can cause chest pain. Make sure you see your health care provider if you experience chest pain. ? Shortness of breath or wheezing. ? Ongoing (chronic) cough or a night-time cough. ? Wearing away of tooth enamel. ? Weight loss. How is this diagnosed? Your health care provider will take a medical history and perform a physical exam. To determine if you have mild or severe GERD, your health care provider may also monitor how you respond to treatment. You may also have tests, including: ? A test to examine your stomach and esophagus with a small camera (endoscopy). ? A test that?measures the acidity level in your esophagus. ? A test that?measures how much pressure is on your esophagus. ? A barium swallow or modified barium swallow test to show the shape, size, and functioning of your esophagus. How is this treated? The goal of treatment is to help relieve your symptoms and to prevent complications. Treatment for this condition may vary depending on how severe your symptoms are. Your health care provider may recommend: ? Changes to your diet. ? Medicine. ? Surgery. Follow these instructions at home: Eating and drinking ? Follow a diet as recommended by your health care provider. This may involve avoiding foods and drinks such as: ? Coffee and tea (with or without caffeine). ? Drinks that contain?alcohol. ? Energy drinks and sports drinks. ? Carbonated drinks or sodas. ? Chocolate and cocoa. ? Peppermint and mint flavorings. ? Garlic and onions. ? Horseradish. ? Spicy and acidic foods, including peppers, chili powder, darling powder, vinegar, hot sauces, and barbecue sauce. ? Institute fruit juices and citrus fruits, such as oranges, myron, and limes. ? Tomato-based foods, such as red sauce, chili, salsa, and pizza with red sauce. ? Fried and fatty foods, such as donuts, mexican fries, potato chips, and high-fat dressings. ? High-fat meats, such as hot dogs and fatty cuts of red and white meats, such as rib eye steak, sausage, ham, and santos. ? High-fat dairy items, such as whole milk, butter, and cream cheese. ? Eat small, frequent meals instead of large meals. ? Avoid drinking large amounts of liquid with your meals. ? Avoid eating meals during the 2?3 hours before bedtime. ? Avoid lying down right after you eat. ? Do not exercise right after you eat. Lifestyle ? Do not use any products that contain nicotine or tobacco, such as cigarettes, e-cigarettes, and chewing tobacco. If you need help quitting, ask your health care provider. ? Try to reduce your stress by using methods such as yoga or meditation. If you need help reducing stress, ask your health care provider. ? If you are overweight, reduce your weight to an amount that is healthy for you. Ask your health care provider for guidance about a safe weight loss goal. General instructions ? Pay attent (more content not included)... [facility] Pre-Certification Formon Pre-Certification Form [id number]:127 [facility] Lab Reportson 12-20-2022 Lab Reports [id number]:127 [facility] Lab Reports [id number]:127 [facility] CNPNon 12-15-2022 CNPN Telephone (HEMASA) ANH TEJEDA ([id number]) 1950 F Date Time Provider Department 12/15/22 JOVANNI RG During your visit today, we recorded the following information about you: Jovanni Rg RN 12/15/2022 9:36 AM Signed ----- Message from Daksha Bridges PA-C sent at 12/15/2022 8:11 AM EST ----- Please call with normal iron stores. Keep appointments as scheduled Jovanni Rg RN 12/15/2022 2:30 PM Signed Informed pt of Daksha's message. Pt verbalized understanding and denies further needs at this time. Jovanni Rg RN Allergies As of Date: 12/15/2022 Noted Allergy Reaction ACETAMINOPHEN-CODEINE 10/01/2022 14 - Other: See Comments Comments: pt states she is unwilling to try even plain tylenol after this experience even though she states she took tylenol prior to this and had no problems TYLENOL #3 (CODEINE) 09/26/2022 14 - Other: See Comments Comments: Upset stomach Date Reviewed: 12/12/2022 Reviewed by: Daksha Bridges PA-C - Fully Assessed Reason for Visit: Results [95] Prescriptions as of 12/15/2022 - MEDIHONEY, HONEY, 100 % pste APPLY A THIN LAYER TWICE DAILY - allopurinol (ZYLOPRIM) 100 mg tablet Take 100 mg by mouth once daily. - ASCORBIC ACID, VITAMIN C, ORAL Take 500 mg by mouth once daily. - aspirin (ASPIR-81 ORAL) Take 81 mg by mouth once daily. - atenolol (TENORMIN) 50 mg tablet Take 50 mg by mouth once daily. - atorvastatin (LIPITOR) 20 mg tablet Take 20 mg by mouth once daily. - cholecalciferol (VITAMIN D3) 1,000 unit tab tablet Take 1,000 Units by mouth once daily. - diclofenac, EC, (VOLTAREN) 75 mg EC tablet Take 75 mg by mouth once daily. - furosemide (LASIX) 20 mg tablet Take 20 mg by mouth once daily. - gabapentin (NEURONTIN) 300 mg capsule Take 300 mg by mouth daily at bedtime. - lisinopril-hydroCHLOROthiaz jennifer (PRINZIDE,ZESTORETIC) 10-12.5 mg per tablet Take 1 tablet by mouth once daily. - glimepiride (AMARYL) 2 mg tablet Take 2 mg by mouth daily with breakfast. - metformin HCl (METFORMIN ORAL) Take 1,000 mg by mouth once daily. - omeprazole (PRILOSEC) 20 mg capsule Take 20 mg by mouth once daily. - rOPINIRole (REQUIP) 0.5 mg tablet Take 0.5 mg by mouth twice daily. Problem List As Of Date 12/15/2022 Noted Resolved Iron deficiency anemia due to chronic blood los*10/03/2022 Encounter Status:Closed by JOVANNI RG on 12/15/22 Normal [facility] Consultation Noteon 12-15-19 Consultation Note [id number]:127 Normal [facility] CBC W Auto Differential pane l (Bld)on 12-12-2022 Basophils (Bld) [#/Vol] 0.03 10*3/uL Normal <0.11 [facility] Comment on above: Order Comment: Speci men Type: BLOOD SPECIMEN Ordering Facility: [facility] Address: [address] [address] Performed By: #### 5 0190-8, 2275- #### [facility] CLIA [id number] [address] [place] [address] [place] Basophils/100 WBC (Bld) 0.5 % Normal [facility] Comment on above: Order Comment: Speci men Type: BLOOD SPECIMEN Ordering Facility: [facility] Address: [address] [address] Performed By: #### 5 0190-8, 2275- #### [facility] CLIA [id number] [address] [place] [address] [place] Differential cell count method Nom (Bld) Auto Normal [facility] Comment on above: Order Comment: Speci men Type: BLOOD SPECIMEN Ordering Facility: [facility] Address: [address] [address] Performed By: #### 5 0190-8, 2275- #### [facility] CLIA [id number] [address] [place] [address] [place] Eosinophils (Bld) [#/Vol] 0.14 10*3/uL Normal <0.46 [facility] Comment on above: Order Comment: Speci men Type: BLOOD SPECIMEN Ordering Facility: [facility] Address: [address] [place] [address] Performed By: #### 5 0190-8, 2275-4 #### [facility] CLIA [id number] [address] [place] [address] [place] Eosinophils/100 WBC (Bld) 2.5 % Normal [facility] Comment on above: Order Comment: Speci men Type: BLOOD SPECIMEN Ordering Facility: [facility] Address: [address] [place] [address] Performed By: #### 5 0190-8, 2275-4 #### [facility] CLIA [id number] [address] [place] [address] [place] Erythrocyte distribution width (RBC) [Ratio] 18.6 % High 11.5-15.0 [facility] Comment on above: Order Comment: Speci men Type: BLOOD SPECIMEN Ordering Facility: [facility] Address: [address] [place] [address] Performed By: #### 5 0190-8, 2275-4 #### [facility] CLIA [id number] [address] [place] [address] [place] Hematocrit (Bld) [Volume fraction] 32.6 % Low 36.0-46.0 [facility] Comment on above: Order Comment: Speci men Type: BLOOD SPECIMEN Ordering Facility: [facility] Address: [address] [place] [address] Performed By: #### 5 0190-8, 2275-4 #### [facility] CLIA [id number] [address] [id number] [address] [place] Hemoglobin (Bld) [Mass/Vol] 10.5 g/dL Low 11.5-15.5 [facility] Comment on above: Order Comment: Speci men Type: BLOOD SPECIMEN Ordering Facility: [facility] Address: [address] [place] [address] Performed By: #### 5 0190-8, 2275-4 #### [facility] CLIA [id number] [address] [place] [address] [place] Immature granulocytes (Bld) [#/Vol] 0.03 10*3/uL Normal <0.10 [facility] Comment on above: Order Comment: Speci men Type: BLOOD SPECIMEN Ordering Facility: [facility] Address: [address] [place] [address] Performed By: #### 5 0190-8, 2275-4 #### [facility] CLIA [id number] [address] [place] [address] [place] Immature granulocytes/100 WBC (Bld) 0.5 % Normal [facility] Comment on above: Order Comment: Speci men Type: BLOOD SPECIMEN Ordering Facility: [facility] Address: [address] [place] [address] Performed By: #### 5 0190-8, 2276-02 #### [facility] CLIA [id number] [address] [place] [address] [place] Lymphocytes (Bld) [#/Vol] 1.24 10*3/uL Normal 1.00-4.00 [facility] Comment on above: Order Comment: Speci men Type: BLOOD SPECIMEN Ordering Facility: [facility] Address: [address] [place], [place] [address] Performed By: #### 5 0190-8, 2275- #### [facility] CLIA [id number] [address] [place] [address] [place] Lymphocytes/100 WBC (Bld) 22.0 % Normal [facility] Comment on above: Order Comment: Speci men Type: BLOOD SPECIMEN Ordering Facility: [facility] Address: [address] [address] Performed By: #### 5 0190-8, 2276-02 #### [facility] CLIA [id number] [address] [place] [address] [place] MCH (RBC) [Entitic mass] 28.1 pg Normal 26.0-34.0 [facility] Comment on above: Order Comment: Speci men Type: BLOOD SPECIMEN Ordering Facility: [facility] Address: [address] [address] Performed By: #### 5 0190-8, 2276-02 #### [facility] CLIA [id number] [address] [place] [address] [place] MCHC (RBC) [Mass/Vol] 32.2 g/dL Normal 30.5-36.0 [facility] Comment on above: Order Comment: Speci men Type: BLOOD SPECIMEN Ordering Facility: [facility] Address: [address] [place] [address] Performed By: #### 5 0190-8, 2276-02 #### [facility] CLIA [id number] [address] [place] [address] [place] MCV (RBC) [Entitic vol] 87.2 fL Normal 80.0-100.0 [facility] Comment on above: Order Comment: Speci men Type: BLOOD SPECIMEN Ordering Facility: [facility] Address: [address] Performed By: #### 5 0190-8, 2276-02 #### [facility] CLIA [id number] [address] [place] [address] [place] Monocytes (Bld) [#/Vol] 0.28 10*3/uL Normal <0.87 [facility] Comment on above: Order Comment: Speci men Type: BLOOD SPECIMEN Ordering Facility: [facility] Address: [address] Performed By: #### 5 0190-8, 2275-4 #### [facility] CLIA [id number] [address] [place] [address] [place] Monocytes/100 WBC (Bld) 5.0 % Normal [facility] Comment on above: Order Comment: Speci men Type: BLOOD SPECIMEN Ordering Facility: [facility] Address: [address] Performed By: #### 5 0190-8, 2275- #### [facility] CLIA [id number] [address] [place] [address] [place] Neutrophils (Bld) [#/Vol] 3.92 10*3/uL Normal 1.45-7.50 [facility] Comment on above: Order Comment: Speci men Type: BLOOD SPECIMEN Ordering Facility: [facility] Address: [address] Performed By: #### 5 0190-8, 2276-02 #### [facility] CLIA [id number] [address] [place] [address] [place] Neutrophils/100 WBC (Bld) 69.5 % Normal [facility] Comment on above: Order Comment: Speci men Type: BLOOD SPECIMEN Ordering Facility: [facility] Address: [address] Performed By: #### 5 0190-8, 2276-02 #### [facility] CLIA [id number] [address] [place] [address] [place] Nucleated RBC (Bld) [#/Vol] 10*3/uL Normal <0.01 [facility] Comment on above: Order Comment: Speci men Type: BLOOD SPECIMEN Ordering Facility: [facility] Address: [address] Performed By: #### 5 0190-8, 2276-02 #### [facility] CLIA [id number] [address] [id number] [place] Nucleated RBC/100 WBC (Bld) [Ratio] 0.0 /100 WBC Normal [facility] Comment on above: Order Comment: Speci men Type: BLOOD SPECIMEN Ordering Facility: [facility] Address: [address] [place], [place] [address] Performed By: #### 5 0190-8, 2276-02 #### [facility] CLIA [id number] [address] [place] [address] [place] Platelet mean volume (Bld) [Entitic vol] 9.0 fL Normal 9.0-12.7 [facility] Comment on above: Order Comment: Speci men Type: BLOOD SPECIMEN Ordering Facility: [facility] Address: [address] [place] [address] Performed By: #### 5 0190-8, 2276-02 #### [facility] CLIA [id number] [address] [place] [address] [place] Platelets (Bld) [#/Vol] 157 10*3/uL Normal 150-400 [facility] Comment on above: Order Comment: Speci men Type: BLOOD SPECIMEN Ordering Facility: [facility] Address: [address] [place], [place] [address] Performed By: #### 5 0190-8, 2276-02 #### [facility] CLIA [id number] [address] [place] [address] [place] RBC (Bld) [#/Vol] 3.74 10*6/uL Low 3.90-5.20 [facility] Comment on above: Order Comment: Speci men Type: BLOOD SPECIMEN Ordering Facility: [facility] Address: [address] [place], [place] [address] Performed By: #### 5 0190-8, 2275- #### [facility] CLIA [id number] [address] [facility] [place] [address] [place] WBC (Bld) [#/Vol] 5.64 10*3/uL Normal 3.70-11.00 [facility] Comment on above: Order Comment: Speci men Type: BLOOD SPECIMEN Ordering Facility: [facility] Address: [address] [place] [address] Performed By: #### 5 0190-8, 2276-4 #### [facility] CLIA [id number] [address] [place], [place] [address] [place] CNOVSPon 12-12-2022 CNOVSP Visit (SP) Office ( [facility]) ANH TEJEDA ([id number]) 1950 F Date Time Provider Department 12/12/22 3:00 PM DAKSHA BRIDGES During your visit today, we recorded the following information about you: Temperature Pulse Respiration Blood pressure 97.4 degrees 69/minute 16/minute 170/75 Weight Height 98 kg 1.58 m Daksha Bridges PA-C 12/12/2022 2:59 PM Signed PATIENT NAME: Anh Tejeda CLINIC NO.: [id number] ATTENDING PHYSICIAN: Delores Walker MD DATE OF SERVICE: December 12, 2022 (Elements copied from Dr. Walker's note dated October 17, 2022, have been reviewed and updated where appropriate, and all reflect current assessment and medical decision making during today's encounter, December 12, 2022) CHIEF COMPLAINT: Follow up Diagnosis: NAINA Treatment: Venofer x 3 doses 10/2023 HPI: Anh returns for follow up. She received venofer in October. She does not feel much different. Breathing is a little better. She just still has fatigue. Energy is slightly improved Current Outpatient Medications Medication Sig allopurinol (ZYLOPRIM) 100 mg tablet Take 100 mg by mouth once daily. ASCORBIC ACID, VITAMIN C, ORAL Take 500 mg by mouth once daily. aspirin (ASPIR-81 ORAL) Take 81 mg by mouth once daily. atenolol (TENORMIN) 50 mg tablet Take 50 mg by mouth once daily. atorvastatin (LIPITOR) 20 mg tablet Take 20 mg by mouth once daily. cholecalciferol (VITAMIN D3) 1,000 unit tab tablet Take 1,000 Units by mouth once daily. diclofenac, EC, (VOLTAREN) 75 mg EC tablet Take 75 mg by mouth once daily. furosemide (LASIX) 20 mg tablet Take 20 mg by mouth once daily. gabapentin (NEURONTIN) 300 mg capsule Take 300 mg by mouth daily at bedtime. lisinopril-hydroCHLOROthiaz jennifer (PRINZIDE,ZESTORETIC) 10-12.5 mg per tablet Take 1 tablet by mouth once daily. glimepiride (AMARYL) 2 mg tablet Take 2 mg by mouth daily with breakfast. metformin HCl (METFORMIN ORAL) Take 1,000 mg by mouth once daily. omeprazole (PRILOSEC) 20 mg capsule Take 20 mg by mouth once daily. rOPINIRole (REQUIP) 0.5 mg tablet Take 0.5 mg by mouth twice daily. No current facility-administered medications for this visit. ALLERGIES Allergen Reactions Acetaminophen-Codei* Other: See Comments pt states she is unwilling to try even plain tylenol after this experience even though she states she took tylenol prior to this and had no problems Tylenol #3 [Codeine] Other: See Comments Upset stomach PAST MEDICAL HISTORY Diagnosis Date Anemia Benign fundic gland polyps of stomach Diabetes mellitus (HCC) Diverticulosis GERD (gastroesophageal reflux disease) Hemorrhoids Hyperlipidemia Polyneuropathy Rectal polyp Restless leg syndrome PAST SURGICAL HISTORY Procedure Laterality Date COLONOSCOPY EGD W/O BRSH SPEC VARICIES INJ FAMILY HISTORY Problem Relation Age of Onset other (Congenital heart disease) Mother Lung Cancer Father Social History Tobacco Use Smoking status: Never Passive exposure: Past Smokeless tobacco: Never Substance Use Topics Alcohol use: Never Drug use: Not Currently REVIEW OF SYSTEMS GENERAL: No weight loss, malaise or fevers. No night sweats. +fatigue HEENT: Negative for headaches, No changes in hearing or vision, no nose bleeds or other nasal problems. RESPIRATORY: Negative for cough, wheezing +ONEIL CARDIOVASCULAR: Negative for chest pain, leg swelling and palpitations GI: Negative for abdominal discomfort, blood in stools or black stools and change in bowel habits : Negative for dysuria, frequency and incontinence MUSCULOSKELETAL: Negative for joint pain or swelling, back pain, and muscle pain. SKIN: Negative for lesions, rash, and itching. HEMATOLOGY/LYMPHOLOGY Negative for prolonged bleeding, bruising easily, and swollen nodes. NEURO: Negative for numbness or tingling of hands/feet. No weakness. PHYSICAL EXAMINATION: BP 170/75 Pulse 69 Temp 36.3 ?C (97.4 ?F) (Temporal) Resp 16 Ht 158 cm (5' 2.21 ) Wt 98 kg (216 lb) SpO2 96% BMI 39.25 kg/m? ECOG PERFORMANCE STATUS: 1- Restricted in physically strenuous activity. Carries out light duty. General: Alert and oriented, no distress, pleasant and cooperative. Heart: Regular, normal S1 and S2, no murmurs, rubs, or gallops Lungs: Clear to auscultation bilaterally Abdomen: Benign Extremities: Feet/ankles without edema, posterior tibial pulses full and symmetrical LABS: Glucose (mg/dL) Date Value 12/12/2022 226 Potassium (mmol/L) Date Value 12/12/2022 3.6 Sodium (mmol/L) Date Value 12/12/2022 141 Chloride (mmol/L) Date Value 12/12/2022 101 CO2 (mmol/L) Date Value 12/12/2022 27 Creatinine (mg/dL) Date Value 12/12/2022 1.24 BUN (mg/dL) Date Value 12/12/2022 41 Anion Gap (mmol/L) Date Value 12/12/2022 13 Calcium, Total (mg/dL) Date Value 12/12/2022 8.7 Pr (more content not included)... Normal [facility] Comprehensive metabolic 2000 panelon 12-12-2022 Albumin [Mass/Vol] 4.4 g/dL Normal 3.9-4.9 [facility] Comment on above: Order Comment: Speci men Type: BLOOD SPECIMEN Ordering Facility: [facility] Address: [address] [place] [id number] Performed By: #### 5 0190-8, 2276-4 #### [facility] CLIA [id number] [address] [place] [address] [place] ALP [Catalytic activity/Vol] 142 U/L High 34-123 [facility] Comment on above: Order Comment: Speci men Type: BLOOD SPECIMEN Ordering Facility: [facility] Address: [address] [place], [place] [address] Performed By: #### 5 0190-8, 2275-4 #### [facility] CLIA [id number] [address] [place] [address] [place] ALT [Catalytic activity/Vol] 27 U/L Normal 7-38 [facility] Comment on above: Order Comment: Speci men Type: BLOOD SPECIMEN Ordering Facility: [facility] Address: [address] [place] [address] Performed By: #### 5 0190-8, 2275-4 #### [facility] CLIA [id number] [address] [place] [address] [place] Anion gap [Moles/Vol] 13 mmol/L Normal 9-18 [facility] Comment on above: Order Comment: Speci men Type: BLOOD SPECIMEN Ordering Facility: [facility] Address: [address] [place], [place] [address] Performed By: #### 5 0190-8, 2275-4 #### [facility] CLIA [id number] [address] [place] [address] [place] AST [Catalytic activity/Vol] 33 U/L Normal 13-35 [facility] Comment on above: Order Comment: Speci men Type: BLOOD SPECIMEN Ordering Facility: [facility] Address: [address] [place], [place] [address] Performed By: #### 5 0190-8, 2275-4 #### [facility] CLIA [id number] [address] [place] [id number] [place] Bilirubin [Mass/Vol] 0.3 mg/dL Normal 0.2-1.3 [facility] Comment on above: Order Comment: Speci men Type: BLOOD SPECIMEN Ordering Facility: [facility] Address: [address] Performed By: #### 5 0190-8, 2275- #### [facility] CLIA [id number] [address] [place] [address] [place] Calcium [Mass/Vol] 8.7 mg/dL Normal 8.5-10.2 [facility] Comment on above: Order Comment: Speci men Type: BLOOD SPECIMEN Ordering Facility: [facility] Address: [address] [place], [place] [address] Performed By: #### 5 0190-8, 2276-02 #### [facility] CLIA [id number] [address] [place] [address] [place] Chloride [Moles/Vol] 101 mmol/L Normal 97-105 [facility] Comment on above: Order Comment: Speci men Type: BLOOD SPECIMEN Ordering Facility: [facility] Address: [address] [place], [place] [address] Performed By: #### 5 0190-8, 2276-02 #### [facility] CLIA [id number] [address] [place] [address] [place] CO2 [Moles/Vol] 27 mmol/L Normal 22-30 [facility] Comment on above: Order Comment: Speci men Type: BLOOD SPECIMEN Ordering Facility: [facility] Address: [address] [place] [address] Performed By: #### 5 0190-8, 2276-02 #### [facility] CLIA [id number] [address] [place] [address] [place] Creatinine [Mass/Vol] 1.24 mg/dL High 0.58-0.96 [facility] Comment on above: Order Comment: Speci men Type: BLOOD SPECIMEN Ordering Facility: [facility] Address: [address] [place] [address] Performed By: #### 5 0190-8, 2276-4 #### [facility] CLIA [id number] [address] [place] [address] [place] ESTIMATED GLOMERULAR FILTRATION RATE 46 mL/min/1.73m??? Low >=60 [facility] Comment on above: Order Comment: Patricia tarango Type: BLOOD SPECIMEN Ordering Facility: [facility] Address: [address] [place] [address] Result Comment: Maru mated Glomerular Filtration Rate (eGFR) is calculated using the 2020 CKD-EPI creatinine equation. This equation utilizes serum creatinine, sex, and age as parameters. The creatinine assay has traceable calibration to isotope dilution-mass spectrometry. Refer to KDIGO guidelines for clinical interpretation. In patients with unstable renal function, e.g. those with acute kidney injury, the eGFR may not accurately reflect actual GFR. Performed By: #### 5 0190-8, 6-4 #### [facility] CLIA [id number] [address] [place] [address] [place] Glucose [Mass/Vol] 226 mg/dL High 74-99 [facility] Comment on above: Order Comment: Patricia tarango Type: BLOOD SPECIMEN Ordering Facility: [facility] Address: [address] [place] [address] Result Comment: The [place] Diabetes Association (ADA) provides guidance for cutoff values for fasting glucose and random glucose. The ADA defines fasting as no caloric intake for at least 8 hours. Fasting plasma glucose results between 100 to 125 mg/dL indicate increased risk for diabetes (prediabetes). Fasting plasma glucose results greater than or equal to 126 mg/dL meet the criteria for diagnosis of diabetes. In the absence of unequivocal hyperglycemia, results should be confirmed by repeat testing. In a patient with classic symptoms of hyperglycemia or hyperglycemic crisis, random plasma glucose results greater than or equal to 200 mg/dL meet the criteria for diagnosis of diabetes. Reference: Standards of Medical Care in Diabetes 2016, [place] Diabetes Association. Diabetes Care. 2016.39(Suppl 1). Performed By: #### 5 0190-8, 2276-02 #### [facility] CLIA [id number] [address] [place] [address] [place] Potassium [Moles/Vol] 3.6 mmol/L Low 3.7-5.1 [facility] Comment on above: Order Comment: Speci men Type: BLOOD SPECIMEN Ordering Facility: [facility] Address: [address] Performed By: #### 5 0190-8, 2276-02 #### [facility] CLIA [id number] [address] [place] [address] [place] Protein [Mass/Vol] 6.9 g/dL Normal 6.3-8.0 [facility] Comment on above: Order Comment: Speci men Type: BLOOD SPECIMEN Ordering Facility: [facility] Address: [address] [place] [address] Performed By: #### 5 0190-8, 2276-02 #### [facility] CLIA [id number] [address] [place] [address] [place] Sodium [Moles/Vol] 141 mmol/L Normal 136-144 [facility] Comment on above: Order Comment: Speci men Type: BLOOD SPECIMEN Ordering Facility: [facility] Address: [address] Performed By: #### 5 0190-8, 2276-02 #### [facility] CLIA [id number] [address] [place] [address] [place] Urea nitrogen [Mass/Vol] 41 mg/dL High 7-21 [facility] Comment on above: Order Comment: Speci men Type: BLOOD SPECIMEN Ordering Facility: [facility] Address: [address] Performed By: #### 5 0190-8, 2275- #### [facility] CLIA [id number] [address] [place] [id number] [place] Ferritin SerPl-mCncon 2022 Ferritin [Mass/Vol] 184.0 ng/mL Normal 14.7-205.1 [facility] Comment on above: Order Comment: Speci men Type: BLOOD SPECIMEN Ordering Facility: [facility] Address: [address] [place], [place] [address] Performed By: #### 5 0190-8, 2275-4 #### [facility] CLIA [id number] [address] [place] [address] [place] Iron and Iron binding capaci ty panelon 12-12-2022 Iron [Mass/Vol] 60 ug/dL Normal 41-186 [facility] Comment on above: Order Comment: Speci men Type: BLOOD SPECIMEN Ordering Facility: [facility] Address: [address] [place] [address] Performed By: #### 5 0190-8, 2275-4 #### [facility] CLIA [id number] [address] [place] [address] STATES [facility] Iron binding capacity [Mass/Vol] 368 ug/dL Normal 232-386 [facility] Comment on above: Order Comment: Speci men Type: BLOOD SPECIMEN Ordering Facility: [facility] Address: [address] [place], [place] [address] Performed By: #### 5 0190-8, 2275-4 #### [facility] CLIA [id number] [address] [place] [address] STATES OF [facility] Iron/TIBC [Molar ratio] 16.3 % Normal 15.0-57.0 [facility] Comment on above: Order Comment: Speci men Type: BLOOD SPECIMEN Ordering Facility: [facility] Address: [address] [place] [address] Performed By: #### 5 0190-8, 2275-4 #### [facility] CLIA [id number] [address] [place] [address] [place] CNPNon 10-31-2022 [facility] Telephone (HEMT[place]) ANH TEJEDA ([id number]) 1950 F Date Time Provider Department 10/31/22 KARLIE CAR During your visit today, we recorded the following information about you: Karlie Car RN 10/31/2022 9:07 AM Signed Patient is scheduled for her 4th dose of Venofer on 11/06/22. Per Chidi Barrera, she is only approved for 3 doses. Can you cancel 11/06 appointment and call patient to make sure she is aware. Thanks JAQUAN Thomas 10/31/2022 10:29 AM Signed Spoke to patient AND explained she was only approved for 3 doses AND 4 dose on 11/06/2022 needed to be cancelled. Patient verbalized understanding. Cancelled appointment. Carie Edouard Allergies As of Date: 10/31/2022 Noted Allergy Reaction ACETAMINOPHEN-CODEINE 10/01/2022 14 - Other: See Comments Comments: pt states she is unwilling to try even plain tylenol after this experience even though she states she took tylenol prior to this and had no problems TYLENOL #3 (CODEINE) 09/26/2022 14 - Other: See Comments Comments: Upset stomach Date Reviewed: 10/30/2022 Reviewed by: Ashley Martínez RN - Fully Assessed Reason for Visit: Appointment [186] Prescriptions as of 11/24/2022 - allopurinol (ZYLOPRIM) 100 mg tablet Take 100 mg by mouth once daily. - ASCORBIC ACID, VITAMIN C, ORAL Take 500 mg by mouth once daily. - aspirin (ASPIR-81 ORAL) Take 81 mg by mouth once daily. - atenolol (TENORMIN) 50 mg tablet Take 50 mg by mouth once daily. - atorvastatin (LIPITOR) 20 mg tablet Take 20 mg by mouth once daily. - cholecalciferol (VITAMIN D3) 1,000 unit tab tablet Take 1,000 Units by mouth once daily. - diclofenac, EC, (VOLTAREN) 75 mg EC tablet Take 75 mg by mouth once daily. - furosemide (LASIX) 20 mg tablet Take 20 mg by mouth once daily. - gabapentin (NEURONTIN) 300 mg capsule Take 300 mg by mouth daily at bedtime. - lisinopril-hydroCHLOROthiaz jennifer (PRINZIDE,ZESTORETIC) 10-12.5 mg per tablet Take 1 tablet by mouth once daily. - glimepiride (AMARYL) 2 mg tablet Take 2 mg by mouth daily with breakfast. - metformin HCl (METFORMIN ORAL) Take 1,000 mg by mouth once daily. - omeprazole (PRILOSEC) 20 mg capsule Take 20 mg by mouth once daily. - rOPINIRole (REQUIP) 0.5 mg tablet Take 0.5 mg by mouth twice daily. Problem List As Of Date 10/31/2022 Noted Resolved Iron deficiency anemia due to chronic blood los*10/03/2022 Encounter Status:Closed by KARLIE CAR on 11/24/22 Normal [facility] CBC W Auto Differential pane l (Bld)on 10-01-2022 Basophils (Bld) [#/Vol] <0.11 k/uL [facility] Basophils/100 WBC (Bld) 0.4 % [facility] Differential cell count method Nom (Bld) Auto [facility] Eosinophils (Bld) [#/Vol] 0.12 10*3/uL <0.46 k/uL [facility] Eosinophils/100 WBC (Bld) 2.2 % [facility] Erythrocyte distribution width (RBC) [Ratio] 16.9 % High 11.5 - 15.0 % [facility] Hematocrit (Bld) [Volume fraction] 27.7 % Low 36.0 - 46.0 % [facility] Hemoglobin (Bld) [Mass/Vol] 8.5 g/dL Low 11.5 - 15.5 g/dL [facility] Immature granulocytes (Bld) [#/Vol] <0.10 k/uL [facility] Immature granulocytes/100 WBC (Bld) 0.2 % [facility] Lymphocytes (Bld) [#/Vol] 1.07 10*3/uL 1.00 - 4.00 k/uL [facility] Lymphocytes/100 WBC (Bld) 19.6 % [facility] MCH (RBC) [Entitic mass] 25.3 pg Low 26.0 - 34.0 pg [facility] MCHC (RBC) [Mass/Vol] 30.7 g/dL 30.5 - 36.0 g/dL [facility] MCV (RBC) [Entitic vol] 82.4 fL 80.0 - 100.0 fL [facility] Monocytes (Bld) [#/Vol] 0.25 10*3/uL <0.87 k/uL [facility] Monocytes/100 WBC (Bld) 4.6 % [facility] Neutrophils (Bld) [#/Vol] 3.99 10*3/uL 1.45 - 7.50 k/uL [facility] Neutrophils/100 WBC (Bld) 73.0 % [facility] Nucleated RBC (Bld) [#/Vol] <0.01 k/uL [facility] Nucleated RBC/100 WBC (Bld) [Ratio] 0.0 /100 WBC [facility] Platelet mean volume (Bld) [Entitic vol] 9.4 fL 9.0 - 12.7 fL [facility] Platelets (Bld) [#/Vol] 170 10*3/uL 150 - 400 k/uL [facility] RBC (Bld) [#/Vol] 3.36 10*6/uL Low 3.90 - 5.20 m/uL [facility] WBC (Bld) [#/Vol] 5.46 10*3/uL 3.70 - 11.00 k/uL [facility] Comprehensive metabolic 2000 panelon 10-01-2022 Albumin [Mass/Vol] 4.3 g/dL 3.9 - 4.9 g/dL [facility] ALP [Catalytic activity/Vol] 120 U/L 34 - 123 U/L [facility] ALT [Catalytic activity/Vol] 20 U/L 7 - 38 U/L [facility] Anion gap [Moles/Vol] 12 mmol/L 9 - 18 mmol/L [facility] AST [Catalytic activity/Vol] 28 U/L 13 - 35 U/L [facility] Bilirubin [Mass/Vol] 0.2 mg/dL 0.2 - 1 .3 mg/dL [facility] Calcium [Mass/Vol] 8.8 mg/dL 8.5 - 10. 2 mg/dL [facility] Chloride [Moles/Vol] 109 mmol/L High 97 - 10 5 mmol/L [facility] CO2 [Moles/Vol] 27 mmol/L 22 - 30 mmol/L [facility] Creatinine [Mass/Vol] 1.34 mg/dL High 0.58 - 0.96 mg/dL [facility] Estimated Glomerular Filtration Rate 42 mL/min/1.73m Low >=60 mL/min/1.7 3m [facility] Glucose [Mass/Vol] 191 mg/dL High 74 - 99 mg/dL [facility] Potassium [Moles/Vol] 3.7 mmol/L 3.7 - 5.1 mmol/L [facility] Protein [Mass/Vol] 6.8 g/dL 6.3 - 8.0 g/dL [facility] Sodium [Moles/Vol] 148 mmol/L High 136 - 144 mmol/L [facility] Urea nitrogen [Mass/Vol] 35 mg/dL High 7 - 21 mg/dL [facility] LD LACTATE DEHYDROon 022 LDH [Catalytic activity/Vol] 163 U/L 135 - 214 U/L [facility] RETIC COUNTon 10-01-2022 Reticulocytes (Bld) [#/Vol] 0.31480 10*3/uL 0.018 - 0.100 M/uL [facility] Reticulocytes (Bld) [#/Vol]o n 10-01-2022 Reticulocytes/100 RBC (Bld) 2.8 % High 0.4 - 2.0 % [facility] HEMATOLOGYOrdered By: SYSTEM SYSTEM on 09-19-2022 Basophils/100 WBC (Bld) 0.3 % Normal 0.0 - 2.0 % [facility] HemeAutoSS Basophils/Leukocytes Auto (Bld) [Pure # fraction] 0.0 E9/L Normal 0.0 - 0.2 E9/L [facility] Eosinophils/100 WBC (Bld) 2.3 % Normal 0.0 - 8.0 % [facility] Eosinophils/Leukocytes Auto (Bld) [Pure # fraction] 0.1 E9/L Normal 0.0 - 0.5 E9/L [facility] Lymphocytes/100 WBC (Bld) 21.9 % Normal 14.0 - 50.0 % [facility] Lymphocytes/Leukocytes Auto (Bld) [Pure # fraction] 1.3 E9/L Normal 1.0 - 4.0 E9/L [facility] Monocytes/100 WBC (Bld) 5.0 % Normal 4.0 - 14.0 % [facility] Monocytes/Leukocytes Auto (Bld) [Pure # fraction] 0.3 E9/L Normal 0.2 - 1.0 E9/L [facility] Neutrophils/100 WBC (Bld) 70.5 % Normal 36.0 - 75.0 % [facility] Neutrophils/Leukocytes Auto (Bld) [Pure # fraction] 4.3 E9/L Normal 2.0 - 7.5 E9/L [facility] HEMATOLOGYOrdered By: Tammy Green on 09-19-2022 Erythrocyte distribution width (RBC) [Ratio] 18.3 % High 10.9 - 14.2 % [facility] Hematocrit (Bld) [Volume fraction] 27.6 % Low 34.0 - 46.0 % [facility] Hemoglobin (Bld) [Mass/Vol] 9.1 g/dL Low 12.0 - 16.0 gm/dL [facility] MCH (RBC) [Entitic mass] 25.6 pg Low 27.0 - 34.0 pg [facility] MCHC (RBC) [Mass/Vol] 33.1 g/dL Normal 31.4 - 36.0 gm/dL [facility] MCV (RBC) [Entitic vol] 77.5 fL Low 80.0 - 100.0 fL [facility] Platelet mean volume (Bld) [Entitic vol] 7.2 fL Normal 6.4 - 10.8 fL [facility] Platelets (Bld) [#/Vol] 189.0 E9/L Normal 150.0 - 500.0 E9/L [facility] RBC (Bld) [#/Vol] 3.6 E12/L Low 4.3 - 5.9 E12/L [facility] WBC corrected for nucl RBC Auto (Bld) [#/Vol] 6.1 E9/L Normal 4.0 - 11.0 E9/L [facility] BNPon 09-09-2022 Natriuretic peptide B (Bld) [Mass/Vol] 146.0 pg/mL Normal <=900.0 [facility] Comment on above: Performed By: #### B TRAINING SYSTEMS OFFICER #### [facility] [address] [place] [address] Dr. Anamika Varghese CBC AUTO DIFFon 09-09-2022 BASO # 0.0 103/ul Normal 0.0-0.1 [facility] Comment on above: Performed By: #### C BC #### [facility] [address] [place] [address] Dr. Anamika Varghese Basophils/100 WBC (Bld) 0.4 % Normal 0.2-2.0 [facility] Comment on above: Performed By: #### C BC #### [facility] [address] [place] [address] Dr. Anamika Varghese EO # 0.2 103/ul Normal 0.0-0.7 [facility] Comment on above: Performed By: #### C BC #### [facility] [address] [place] [address] Dr. Anamika Varghese Eosinophils/100 WBC (Bld) 3.6 % Normal 0.9-7.0 [facility] Comment on above: Performed By: #### C BC #### [facility] [address] [place] [address] Dr. Anamika Varghese Erythrocyte distribution width (RBC) [Ratio] 16.4 % Critically high 11.0-15.0 [facility] Comment on above: Performed By: #### C BC #### [facility] [address] [place] [address] Dr. Anamika Varghese Hematocrit (Bld) [Volume fraction] 28.9 % Critically low 36.0-48.0 [facility] Comment on above: Performed By: #### C BC #### [facility] [address] [place] [address] Dr. Anamika Varghese Hemoglobin (Bld) [Mass/Vol] 9.0 g/dL Critically low 12.0-16.0 [facility] Comment on above: Performed By: #### C BC #### [facility] [address] [place] [address] Dr. Anamika Varghese IG # 0.02 10e3/ul Normal 0.00-0.03 [facility] Comment on above: Performed By: #### C BC #### [facility] [address] [place] [address] Dr. Anamika Varghese IG % 0.3 % Normal 0.0-0.5 [facility] Comment on above: Performed By: #### C BC #### [facility] [address] [place] [address] Dr. Anamika Varghese LYMPH # 1.8 103/ul Normal 1.2-3.8 [facility] Comment on above: Performed By: #### C BC #### [facility] [address] [place] [address] Dr. Anamika Varghese Lymphocytes/100 WBC (Bld) 26.1 % Normal 20.5-60.0 [facility] Comment on above: Performed By: #### C BC #### [facility] [address] [place] [address] Dr. Anamika Varghese MANUAL DIFF REQ NO Normal [facility] Comment on above: Performed By: #### C BC #### [facility] [address] [place] [address] Dr. Anamika Varghese MCH (RBC) [Entitic mass] 25.8 pg Critically low 26.7-34.0 [facility] Comment on above: Performed By: #### C BC #### [facility] [address] [place] [address] Dr. Anamika Varghese MCHC (RBC) [Mass/Vol] 31.1 g/dL Normal 29.9-35.2 [facility] Comment on above: Performed By: #### C BC #### [facility] [address] [place] [address] Dr. Anamika Varghese MCV (RBC) [Entitic vol] 82.8 fL Normal 81.0-99.0 [facility] Comment on above: Performed By: #### C BC #### [facility] [address] [place] [address] Dr. Anamika Varghese MONO # 0.3 103/ul Normal 0.3-0.8 [facility] Comment on above: Performed By: #### C BC #### [facility] [address] [address] [address] Anamika Varghese Monocytes/100 WBC (Bld) 5.0 % Normal 1.7-12.0 [facility] Comment on above: Performed By: #### C BC #### [facility] [address] [address] [address] Anamika Varghese NEUT # 4.4 103/ul Normal 1.4-6.5 [facility] Comment on above: Performed By: #### C BC #### [facility] [address] [address] [address] Anamika Varghese Neutrophils/100 WBC (Bld) 64.6 % Normal 43.0-75.0 [facility] Comment on above: Performed By: #### C BC #### [facility] [address] [place] [address] Dr. Anamika Varghese Platelet mean volume (Bld) [Entitic vol] 8.7 fL Critically low 9.5-13.5 [facility] [place] Comment on above: Performed By: #### C BC #### [facility] [address] [place] [address] Dr. Anamika Varghese PLT 188 103/ul Normal 150-450 [facility] Comment on above: Performed By: #### C BC #### [facility] [address] [place] [address] Dr. Anamika Varghese RBC 3.49 106/ul Critically low 4.20-5.40 [facility] Comment on above: Performed By: #### C BC #### [facility] [address] [place] [address] Dr. Anamika Varghese WBC 6.7 103/ul Normal 4.0-11.0 [facility] Comment on above: Performed By: #### C BC #### [facility] [address] [place] [address] Dr. Anamika Varghese GLYCOHEMOGLOBIN A1Con 2021 ADA RECOMMENDATION SEE BELOW Normal [facility] Comment on above: Result Comment: ADA RECOMMENDED LIMIT 4.0 - 6.0 ADA THERAPEUTIC TARGET < 7.0 ACTION SUGGESTED > 7.0 Performed By: #### F ETIBC, FERR, B12FOL #### [facility] [address] [place] [address] Dr. Anamika Varghese Glucose [Mass/Vol] 166 mg/dL Normal [facility] [place] Comment on above: Performed By: #### F ETIBC, FERR, B12FOL #### [facility] [address] [place] [address] Dr. Anamika Varghese HbA1c (Bld) [Mass fraction] 7.4 % Critically high 4.5-6.2 [facility] [place] Comment on above: Performed By: #### F ETIBC, FERR, B12FOL #### [facility] [address] [place] [address] Dr. Anamika Varghese LIPID PROFILEon 09-09-2022 CHOL-HDL RATIO NORM SEE BELOW Normal [facility] [place] Comment on above: Result Comment: 3.3 - 4.4 LOW RISK 4.4 - 7.1 AVERAGE RISK 7.1 - 11.0 MODERATE RISK >11.0 HIGH RISK Performed By: #### L IPID, CMP #### [facility] [address] [place] [address] Dr. Anamika Varghese Cholesterol [Mass/Vol] 118 mg/dL Normal <=200 [facility] Comment on above: Performed By: #### L IPID, CMP #### [facility] [address] [place] [address] Dr. Anamika Varghese Cholesterol in HDL [Mass/Vol] 41 mg/dL Normal 40-60 [facility] [place] Comment on above: Performed By: #### L IPID, CMP #### [facility] [address] [place] [address] Dr. Anamika Varghese Cholesterol in LDL [Mass/Vol] 60.4 mg/dL Normal [facility] [place] Comment on above: Performed By: #### L IPID, CMP #### [facility] [address] [place] [address] Dr. Anamika Varghese Cholesterol.total/Chol esterol in HDL [Mass ratio] 2.9 {ratio} Normal [facility] [place] Comment on above: Performed By: #### L IPID, CMP #### [facility] [address] [address] [address] Anamika Varghese HDL NORMAL > or = 60 mg/dl - LO W CARDIOVASCULAR RISK <40 mg/dl - HIGH CARDIOVASCULAR RISK Normal [facility] [place] Comment on above: Performed By: #### L IPID, CMP #### [facility] [address] [address] [address] Anamika Varghese LDL CALC NORMAL SEE BELOW Normal [facility] [place] Comment on above: Result Comment: <100 mg/dl OPTIMAL 100 - 129 mg/dl NEAR OR ABOVE OPTIMAL 130 - 159 mg/dl BORDERLINE HIGH 160 - 189 mg/dl HIGH >190 mg/dl VERY HIGH Performed By: #### L IPID, CMP #### [facility] [address] [address] [address] Anamika Varghese Triglyceride [Mass/Vol] 83 mg/dL Normal <=150 [facility] [place] Comment on above: Performed By: #### L IPID, CMP #### [facility] [address] [address] [address] Anamika Varghese VLDL CALC 16.6 mg/dL Normal [facility] Comment on above: Performed By: #### L IPID, CMP #### [facility] [address] [address] [address] Anamika Varghese MICROALB CREAT RATIO RANDOMo n 09-09-2022 mALB <1.3 Normal <=30.0 [facility] [place] Comment on above: Performed By: #### F ETILULA FERR, B12FOL #### [facility] [address] [place] [address] Dr. Anamika Varghese MALB CR RATIO 22.0 mg/g Normal 0.0-29.9 [facility] Comment on above: Performed By: #### F ETIBC FERR, B12FOL #### [facility] [address] [place] [address] Dr. Anamika Varghese MALB CR RATIO RANGE SEE BELOW Normal [facility] Comment on above: Result Comment: NO M ICROALBUMINURIA 0-29 MG/G CLINICAL MICROALBUMINURIA 30-300 MG/G MACROALBUMINURIA >300 MG/G Performed By: #### F ETIBC, FERR, B12FOL #### [facility] [address] [place] [address] Dr. Anamika Varghese URINE CREAT 59.04 mg/dL Normal 20.00-300. 00 [facility] [place] Comment on above: Performed By: #### F ETIBC, FERR, B12FOL #### [facility] [address] [place] [address] Dr. Anamika Varghese PROF 14(COMP METB)on 022 Albumin [Mass/Vol] 3.6 g/dL Normal 3.4-5.0 [facility] [place] Comment on above: Performed By: #### L IPID, CMP #### [facility] [address] [place] [address] Dr. Anamika Varghese Albumin/Globulin [Mass ratio] 1.0 {ratio} Normal [facility] [place] Comment on above: Performed By: #### L IPID, CMP #### [facility] [address] [place] [address] Dr. Anamika Varghese ALP [Catalytic activity/Vol] 128 U/L Critically high 46-116 [facility] [place] Comment on above: Performed By: #### L IPID, CMP #### [facility] [address] [place] [address] Dr. Anamika Varghese ALT [Catalytic activity/Vol] 30 U/L Normal 14-59 [facility] [place] Comment on above: Performed By: #### L IPID, CMP #### [facility] [address] [place] [address] Dr. Anamika Varghese Anion gap [Moles/Vol] 14.9 mmol/L Normal [facility] Comment on above: Performed By: #### L IPID, CMP #### [facility] [address] [place] [address] Dr. Anamika Varghese AST [Catalytic activity/Vol] 23 U/L Normal 15-37 [facility] [place] Comment on above: Performed By: #### L IPID, CMP #### [facility] [address] [place] [address] Dr. Anamika Varghese Bilirubin [Mass/Vol] 0.3 mg/dL Normal 0.2-1.0 [facility] [place] Comment on above: Performed By: #### L IPID, CMP #### [facility] [address] [place] [address] Dr. Anamika Varghese Calcium [Mass/Vol] 8.6 mg/dL Normal 8.5-10.1 [facility] [place] Comment on above: Performed By: #### L IPID, CMP #### [facility] [address] [place] [address] Dr. Anamika Varghese Chloride [Moles/Vol] 105 mmol/L Normal 98-107 [facility] Comment on above: Performed By: #### L IPID, CMP #### [facility] [address] [place] [address] Dr. Anamika Varghese CO2 [Moles/Vol] 28.1 mmol/L Normal 21.0-32.0 [facility] [place] Comment on above: Performed By: #### L IPID, CMP #### [facility] [address] [place] [address] Dr. Anamika Varghese Creatinine [Mass/Vol] 1.58 mg/dL Critically high 0.55-1.02 [facility] Comment on above: Performed By: #### L IPID, CMP #### [facility] [address] [place] [address] Dr. Anamika Varghese EGFR-AF MONEGASQUE 39 mL/min/1.73m2 Critically low >=60 [facility] Comment on above: Performed By: #### L IPID, CMP #### [facility] [address] [place] [address] Dr. Anamika Varghese EGFR-NON AF MONEGASQUE 32 mL/min/1.73m2 Critically low >=60 [facility] Comment on above: Performed By: #### L IPID, CMP #### [facility] [address] [place] [address] Dr. Anamika Varghese Globulin (S) [Mass/Vol] 3.6 g/dL Normal [facility] Comment on above: Performed By: #### L IPID, CMP #### [facility] [address] [address] [address] Anamika Varghese Glucose [Mass/Vol] 130 mg/dL Critically high 74-106 [facility] Comment on above: Performed By: #### L IPID, CMP #### [facility] [address] [address] [address] Anamika Varghese Potassium [Moles/Vol] 4.0 mmol/L Normal 3.5-5.1 [facility] [place] Comment on above: Performed By: #### L IPID, CMP #### [facility] [address] [address] [address] Anamika Varghese Protein [Mass/Vol] 7.2 g/dL Normal 6.4-8.2 [facility] [place] Comment on above: Performed By: #### L IPID, CMP #### [facility] [address] [place] [address] Dr. Anamika Varghese Sodium [Moles/Vol] 144 mmol/L Normal 136-145 [facility] [place] Comment on above: Performed By: #### L IPID, CMP #### [facility] [address] [address] [address] Anamika Varghese Urea nitrogen [Mass/Vol] 53.0 mg/dL Critically high 7.0-18.0 [facility] [place] Comment on above: Performed By: #### L IPID, CMP #### [facility] [address] [address] [address] Anamika Varghese Urea nitrogen/Creatinine [Mass ratio] 33.5 mg/mg Normal [facility] [place] Comment on above: Performed By: #### L IPID, CMP #### [facility] [address] [place] [address] Dr. Anamika Varghese Creatinine and Glomerular fi ltration rate.predicted panel (S/P/Bld)Ordered By: Anand Yusuf on 07-24-2022 Creatinine [Mass/Vol] 1.41 mg/dL 0.44-1.03 [facility] Estimated glomerular filtrat ion rate (GFR) non- AmericanOrdered By: Anand Yusuf on 07-24-2022 GFR/1.73 sq M.predicted among non-blacks MDRD (S/P/Bld) [Vol rate/Area] 37 mL/Min [facility] No Panel InformationOrdered By: Anand Yusuf on 07-24-2022 Estimated GFR () 44 mL/Min [facility] Comment on above: GFR estimated refere nce range: According to KDOQI guidelines, <60 ml/min/1.73m2 is sufficient to diagnose a patient with chronic kidney disease. Pharmacy Creatinine Clearance (Chem N/A [facility] Serum or plasma anion gap de terminationOrdered By: Anand Yusuf on 07-24-2022 Anion gap [Moles/Vol] 17.5 mmol/L 6.0-15.0 [facility] Serum or plasma calcium emperatriz urement (mass/volume)Ordered By: Anand Yusuf on 07-24-2022 Calcium [Mass/Vol] 8.5 mg/dL 8.2-10.2 [facility] Serum or plasma chloride edvin surement (moles/volume)Ordered By: Anand Yusuf on 07-24-2022 Chloride [Moles/Vol] 105 mmol/L 95-114 [facility] Serum or plasma glucose emperatriz urement (mass/volume)Ordered By: Anand Yusuf on 07-24-2022 Glucose [Mass/Vol] 97 mg/dL 70-100 [facility] Comment on above: ADA recommended refe rence range Random Glucose Reference Range is dependent on time and content of last meal. Glucose of more than 200 mg/dL in a nonstressed, ambulatory subject supports the diagnosis of Diabetes Mellitus. ADA recommended refe rence rangeRandom Glucose Reference Range is dependent on time and content of last meal. Glucose of more than 200 mg/dL in a nonstressed, ambulatory subject supports the diagnosis of Diabetes Mellitus. Serum or plasma potassium me asurement (moles/volume)Ordered By: Anand Yusuf on 07-24-2022 Potassium [Moles/Vol] 4.3 mmol/L 3.5-5.1 [facility] Serum or plasma sodium measu rement (moles/volume)Ordered By: Anand Yusuf on 07-24-2022 Sodium [Moles/Vol] 141 mmol/L 136-146 [facility] Serum or plasma total carbon dioxide measurement (moles/volume)Ordered By: Anand Yusuf on 07-24-2022 CO2 [Moles/Vol] 22.8 mmol/L 22.0-30.0 [facility] Serum or plasma urea nitroge n measurement (mass/volume)Ordered By: Anand Yusuf on 07-24-2022 Urea nitrogen [Mass/Vol] 37 mg/dL 9- [facility] Urine culture routineOrdered By: Anand Yusuf on 07-24-2022 Bacteria identified Cx Nom (U) Escherichia coli [facility] Automated erythrocytes count in urine sediment (number/area)Ordered By: Anand Yusuf on 07-22-2022 RBC Auto (Urine sed) [#/Area] 0-1 [HPF] 0-4 [facility] Automated leukocytes count i n urine sediment (number/area)Ordered By: Anand Yusuf on 07-22-2022 WBC Auto (Urine sed) [#/Area] 5-9 [HPF] 0-4 [facility] Basophils Auto (Bld) [#/Vol] Ordered By: Anand Yusuf on 07-22-2022 Basophils (Bld) [#/Vol] 0.1 10*3/uL 0.0-0.2 [facility] Basophils/100 WBC Auto (Bld) Ordered By: Anand Yusuf on 07-22-2022 Basophils/100 WBC (Bld) 0.5 % . [facility] Bilirubin Test strip Ql (U)O rdered By: Anand Yusuf on 07-22-2022 Bilirubin Ql (U) Negative Negative [facility] Blood hemoglobin measurement (mass/volume)Ordered By: Anand Yusuf on 07-22-2022 Hemoglobin (Bld) [Mass/Vol] 9.6 g/dL 11.8-15.4 [facility] Blood leukocytes automated c ount (number/volume)Ordered By: Anand Yusuf on 07-22-2022 WBC (Bld) [#/Vol] 11.6 10*3/uL 4.5-11.0 [facility] Body fluid albumin measureme nt (mass/volume)Ordered By: Anand Yusuf on 07-22-2022 Albumin (Body fld) [Mass/Vol] 3.0 g/dL 3.2-5.5 [facility] Color Auto (U)Ordered By: Primo Yusuf on 07-22-2022 Color (U) Yellow Yellow [facility] Creatinine and Glomerular fi ltration rate.predicted panel (S/P/Bld)Ordered By: Anand Yusuf on 07-22-2022 Creatinine [Mass/Vol] 1.63 mg/dL 0.44-1.03 [facility] Eosinophils Auto (Bld) [#/Vo l]Ordered By: Anand Yusuf on 07-22-2022 Eosinophils (Bld) [#/Vol] 0.1 10*3/uL 0.0-0.45 [facility] Eosinophils/100 WBC Auto (Bl d)Ordered By: Anand Yusuf on 07-22-2022 Eosinophils/100 WBC (Bld) 1.0 % . [facility] Erythrocyte distribution wid th Auto (RBC) [Ratio]Ordered By: Anand Yusuf on 07-22-2022 Erythrocyte distribution width (RBC) [Ratio] 17.0 % 11.9-15.3 [facility] Estimated glomerular filtrat ion rate (GFR) non- AmericanOrdered By: Anand Yusuf on 07-22-2022 GFR/1.73 sq M.predicted among non-blacks MDRD (S/P/Bld) [Vol rate/Area] 31 mL/Min [facility] Globulin Calc (S) [Mass/Vol] Ordered By: Anand Yusuf on 07-22-2022 Globulin (S) [Mass/Vol] 3.3 g/dL [facility] Hematocrit Auto (Bld) [Volum e fraction]Ordered By: Anand Yusuf on 07-22-2022 Hematocrit (Bld) [Volume fraction] 28.6 % 34.0-46.4 [facility] Ketones Auto test strip (U) [Mass/Vol]Ordered By: Anand Yusuf on 07-22-2022 Ketones (U) [Mass/Vol] Trace Negative [facility] and C hemistry - challengeOrdered By: Anand Yusuf on 07-22-2022 Magnesium [Mass/Vol] 1.4 mg/dL 1.6-2.6 [facility] Natriuretic peptide B (Bld) [Mass/Vol] 44.0 pg/mL 5-100 [facility] - Hematology and Cell countsOrdered By: Anand Yusuf on 07-22-2022 Nucleated RBC/100 WBC (Bld) [Ratio] 0.0 % 0-0.5 [facility] - UrinalysisOrder ed By: Anand Yusuf on 07-22-2022 Hyaline casts LM Ql (Urine sed) 0-8 [LPF] 0-8 [facility] Lymphocytes Auto (Bld) [#/Vo l]Ordered By: Anand Yusuf on 07-22-2022 Lymphocytes (Bld) [#/Vol] 1.5 10*3/uL 1.00-4.8 [facility] Lymphocytes/100 WBC Auto (Bl d)Ordered By: Anand Yusuf on 07-22-2022 Lymphocytes/100 WBC (Bld) 13.0 % . [facility] MCH Auto (RBC) [Entitic mass ]Ordered By: Anand Yusuf on 07-22-2022 MCH (RBC) [Entitic mass] 27.3 pg 24.7-34.3 [facility] MCHC Auto (RBC) [Mass/Vol]Or dered By: Anand Yusuf on 07-22-2022 MCHC (RBC) [Mass/Vol] 33.5 g/dL 32.0-35.0 [facility] MCV Auto (RBC) [Entitic vol] Ordered By: Anand Yusuf on 07-22-2022 MCV (RBC) [Entitic vol] 81.3 fL 80-100 [facility] Monocytes Auto (Bld) [#/Vol] Ordered By: Anand Yusuf on 07-22-2022 Monocytes (Bld) [#/Vol] 0.5 10*3/uL 0.0-0.8 [facility] Monocytes/100 WBC Auto (Bld) Ordered By: Anand Yusuf on 07-22-2022 Monocytes/100 WBC (Bld) 4.1 % . [facility] Neutrophils Auto (Bld) [#/Vo l]Ordered By: Anand Yusuf on 07-22-2022 Neutrophils (Bld) [#/Vol] 9.5 10*3/uL 1.8-7.7 [facility] Neutrophils/100 WBC Auto (Bl d)Ordered By: Anand Yusuf on 07-22-2022 Neutrophils/100 WBC (Bld) 81.4 % . [facility] Nitrite Test strip Ql (U)Ord ered By: Anand Yusuf on 07-22-2022 Nitrite Ql (U) Negative Negative [facility] No Panel InformationOrdered By: Anand Yusuf on 07-22-2022 Estimated GFR () 37 mL/Min [facility] Comment on above: GFR estimated refere nce range: According to KDOQI guidelines, <60 ml/min/1.73m2 is sufficient to diagnose a patient with chronic kidney disease. Pharmacy Creatinine Clearance (Chem 34.96 [facility] Platelet mean volume Auto (B ld) [Entitic vol]Ordered By: Anand Yusuf on 07-22-2022 Platelet mean volume (Bld) [Entitic vol] 7.3 fL 6.3-10.7 [facility] Platelets Auto (Bld) [#/Vol] Ordered By: Anand Yusuf on 07-22-2022 Platelets (Bld) [#/Vol] 253 10*3/uL 150-450 [facility] Protein Auto test strip (U) [Mass/Vol]Ordered By: Anand Yusuf on 07-22-2022 Protein (U) [Mass/Vol] Negative Negative [facility] Protein [Mass/volume] in Ser um or PlasmaOrdered By: Anand Yusuf on 07-22-2022 Protein [Mass/Vol] 6.3 g/dL 6.1-7.9 [facility] RBC Auto (Bld) [#/Vol]Ordere d By: Anand Yusuf on 07-22-2022 RBC (Bld) [#/Vol] 3.51 10*6/uL 3.60-5.00 [facility] Serum or plasma alanine stubbs otransferase measurement without P-5'-P (enzymatic activiOrdered By: Anand Yusuf on 07-22-2022 ALT No additional P-5'-P [Catalytic activity/Vol] 29 U/L 10-60 [facility] Serum or plasma albumin/glob ulin mass ratioOrdered By: Anand Yusuf on 07-22-2022 Albumin/Globulin [Mass ratio] 0.9 {ratio} [facility] Serum or plasma alkaline lorie sphatase measurement (enzymatic activity/volume)Ordered By: Anand Yusuf on 07-22-2022 ALP [Catalytic activity/Vol] 99 U/L 32-92 [facility] Serum or plasma anion gap de terminationOrdered By: Anand Yusuf on 07-22-2022 Anion gap [Moles/Vol] 14.3 mmol/L 6.0-15.0 [facility] Serum or plasma aspartate am inotransferase measurement (enzymatic activity/volume)Ordered By: Anand Yusuf on 07-22-2022 AST [Catalytic activity/Vol] 31 U/L 10-42 [facility] Serum or plasma calcium emperatriz urement (mass/volume)Ordered By: Anand Yusuf on 07-22-2022 Calcium [Mass/Vol] 9.0 mg/dL 8.2-10.2 [facility] Serum or plasma chloride edvin surement (moles/volume)Ordered By: Anand Yusuf on 07-22-2022 Chloride [Moles/Vol] 107 mmol/L 95-114 [facility] Serum or plasma glucose emperatriz urement (mass/volume)Ordered By: Anand Yusuf on 07-22-2022 Glucose [Mass/Vol] 168 mg/dL 70-100 [facility] Comment on above: ADA recommended refe rence range Random Glucose Reference Range is dependent on time and content of last meal. Glucose of more than 200 mg/dL in a nonstressed, ambulatory subject supports the diagnosis of Diabetes Mellitus. ADA recommended refe rence rangeRandom Glucose Reference Range is dependent on time and content of last meal. Glucose of more than 200 mg/dL in a nonstressed, ambulatory subject supports the diagnosis of Diabetes Mellitus. Serum or plasma potassium me asurement (moles/volume)Ordered By: Anand Yusuf on 07-22-2022 Potassium [Moles/Vol] 5.4 mmol/L 3.5-5.1 [facility] Serum or plasma sodium measu rement (moles/volume)Ordered By: Anand Yusuf on 07-22-2022 Sodium [Moles/Vol] 140 mmol/L 136-146 [facility] Serum or plasma total biliru bin measurement (mass/volume)Ordered By: Anand Yusuf on 07-22-2022 Bilirubin [Mass/Vol] 0.6 mg/dL 0.3-1.2 [facility] Serum or plasma total carbon dioxide measurement (moles/volume)Ordered By: Anand Yusuf on 07-22-2022 CO2 [Moles/Vol] 24.1 mmol/L 22.0-30.0 [facility] Serum or plasma urea nitroge n measurement (mass/volume)Ordered By: Anand Yusuf on 07-22-2022 Urea nitrogen [Mass/Vol] 53 mg/dL 9- [facility] Specific gravity Auto test s trip (U) [Rel density]Ordered By: nAand Yusuf on 07-22-2022 Specific gravity (U) [Rel density] 1.019 1.001-1.03 0 [facility] Squamous epithelial cells de tection in urine sediment by light microscopyOrdered By: Anand Yusuf on 07-22-2022 Epithelial cells.squamous LM Ql (Urine sed) 1-2 [HPF] 0-2 [facility] Troponin I.cardiac [Mass/vol ume] in Serum or Plasma by High sensitivity methodOrdered By: Anand Yusuf on 07-22-2022 Troponin I.cardiac High sensitivity method [Mass/Vol] 4 pg/mL 0-15 [facility] Urine bacteria detection by automated methodOrdered By: Anand Yusuf on 07-22-2022 Bacteria Auto Ql (U) 4+ None Seen [facility] Urine clarity by refractomet ry automatedOrdered By: Anand Yusuf on 07-22-2022 Clarity Refractometry automated (U) Cloudy Clear [facility] Urine glucose measurement by automated test strip (mass/volume)Ordered By: Anand Yusuf on 07-22-2022 Glucose Auto test strip (U) [Mass/Vol] Normal mg/dL Normal [facility] Urine hemoglobin detection b y automated test stripOrdered By: Anand Yusuf on 07-22-2022 Hemoglobin Auto test strip Ql (U) Negative Negative [facility] Urine lactic acid measuremen tOrdered By: Anand Yusuf on 07-22-2022 Lactate (U) [Moles/Vol] 1.9 mmol/L 0.5-2.2 [facility] Urine leukocyte esterase det ection by automated test stripOrdered By: Anand Yusuf on 07-22-2022 Leukocyte esterase Auto test strip Ql (U) 2+ Negative [facility] Urobilinogen Auto test strip (U) [Mass/Vol]Ordered By: Anand Yusuf on 07-22-2022 Urobilinogen (U) [Mass/Vol] Normal mg/dL Normal [facility] pH Auto test strip (U)Ordere d By: Anand Yusuf on 07-22-2022 pH (U) 5.0 [pH] 5.0-9.0 [facility] FERRITINon 06-24-2022 Ferritin [Mass/Vol] 39.0 ng/mL Normal 8.0-252.0 [facility] [place] Comment on above: Performed By: #### F ETIBC, FERR, B12FOL #### [facility] [address] [address] [address] Anamika Varghese IRON AND TIBCon 06-24-2022 % SATURATION 13.1 % Normal [facility] [place] Comment on above: Performed By: #### F ETIBC, FERR, B12FOL #### [facility] [address] [address] [address] Anamika Varghese Iron [Mass/Vol] 52.0 ug/dL Normal 50.0-170.0 [facility] [place] Comment on above: Performed By: #### F ETIBC, FERR, B12FOL #### [facility] [address] [address] [address] Anamika Varghese TIBC DIRECT 397.0 ug/dL Normal 250.0-450. 0 [facility] [place] Comment on above: Performed By: #### F ETIBC, FERR, B12FOL #### [facility] [address] [address] [address] Anamika Varghese LIVER PROFILEon 06-24-2022 Albumin [Mass/Vol] 3.5 g/dL Normal 3.4-5.0 [facility] [place] Comment on above: Performed By: #### L IVER #### [facility] [address] [address] [address] Anamika Varghese Albumin/Globulin [Mass ratio] 1.2 {ratio} Normal [facility] [place] Comment on above: Performed By: #### L IVER #### [facility] [address] [address] [address] Anamika Varghese ALP [Catalytic activity/Vol] 117 U/L Critically high 46-116 [facility] [place] Comment on above: Performed By: #### L IVER #### [facility] [address] [address] [address] Anamika Varghese ALT [Catalytic activity/Vol] 30 U/L Normal 14-59 [facility] [place] Comment on above: Performed By: #### L IVER #### [facility] [address] [address] [address] Anamika Varghese AST [Catalytic activity/Vol] 25 U/L Normal 15-37 [facility] [place] Comment on above: Performed By: #### L IVER #### [facility] [address] [place] [address] Dr. Anamika Varghese BILI, CONJUGATED 0.2 mg/dL Normal 0.0-0.2 [facility] Comment on above: Performed By: #### L IVER #### [facility] [address] [address] [address] Anamika Varghese Bilirubin [Mass/Vol] 0.4 mg/dL Normal 0.2-1.0 [facility] Comment on above: Performed By: #### L IVER #### [facility] [address] [address] [address] Anamika Varghese Globulin (S) [Mass/Vol] 3.0 g/dL Normal [facility] Comment on above: Performed By: #### L IVER #### [facility] [address] [address] [address] Anamika Varghese Protein [Mass/Vol] 6.5 g/dL Normal 6.4-8.2 [facility] Comment on above: Performed By: #### L IVER #### [facility] [address] [place] [address] Dr. Anamika Varghese RETICULOCYTEon 06-24-2022 RETIC 3.27 % Critically high 0.60-3.10 [facility] Comment on above: Performed By: #### F ETIBC, FERR, B12FOL #### [facility] [address] [address] [address] Anamika Varghese VIT B12 AND FOLATEon 022 Cobalamin (Vitamin B12) [Mass/Vol] 206.0 pg/mL Normal 193.0-986. 0 [facility] Comment on above: Performed By: #### F ETIBC, FERR, B12FOL #### [facility] [address] [address] [address] Anamika Varghese FOLATE 20.20 ng/mL Normal 8.60-58.90 [facility] Comment on above: Performed By: #### F ETIBC, FERR, B12FOL #### [facility] [address] [address] [address] Anamika Varghese Basophils Auto (Bld) [#/Vol] Ordered By: Vinay Matta on 05-21-2022 Basophils (Bld) [#/Vol] 0.0 10*3/uL 0.0-0.2 [facility] Basophils/100 WBC Auto (Bld) Ordered By: Vinay Matta on 05-21-2022 Basophils/100 WBC (Bld) 0.4 % . [facility] Blood hemoglobin measurement (mass/volume)Ordered By: Vinay Matta on 05-21-2022 Hemoglobin (Bld) [Mass/Vol] 9.7 g/dL 11.8-15.4 [facility] Blood leukocytes automated c ount (number/volume)Ordered By: Vinay Matta on 05-21-2022 WBC (Bld) [#/Vol] 3.7 10*3/uL 4.5-11.0 [facility] Body fluid albumin measureme nt (mass/volume)Ordered By: Vinay Matta on 05-21-2022 Albumin (Body fld) [Mass/Vol] 3.3 g/dL 3.2-5.5 [facility] Cholesterol [Mass/volume] in Serum or PlasmaOrdered By: Vinay Matta on 05-21-2022 Cholesterol [Mass/Vol] 122 mg/dL 140-200 [facility] Comment on above: Chol less than 200 m g/dl low risk Chol 201-239 mg/dl borderline risk Chol 240 mg/dl and greater high risk Cholesterol in LDL Calc [Mas s/Vol]Ordered By: Vinay Bunting on 05-21-2022 Cholesterol in LDL [Mass/Vol] 67 mg/dL 0-100 [facility] Comment on above: LDL ATP III CLASSIFI CATION LDL less than 100 mg/dL Optimal LDL 100-129 mg/dL Near or above optimal LDL 130-159 mg/dL Borderline high LDL 160-189 mg/dL High LDL greater than 189 mg/dL Very high Cholesterol in VLDL Calc [Ma ss/Vol]Ordered By: Vinay Bunting on 05-21-2022 Cholesterol in VLDL [Mass/Vol] 13 mg/dL [facility] Creatinine and Glomerular fi ltration rate.predicted panel (S/P/Bld)Ordered By: Vinay Bunting on 05-21-2022 Creatinine [Mass/Vol] 1.15 mg/dL 0.44-1.03 [facility] Eosinophils Auto (Bld) [#/Vo l]Ordered By: Vinay Bunting on 05-21-2022 Eosinophils (Bld) [#/Vol] 0.1 10*3/uL 0.0-0.45 [facility] Eosinophils/100 WBC Auto (Bl d)Ordered By: Vinay Bunting on 05-21-2022 Eosinophils/100 WBC (Bld) 3.1 % . [facility] Erythrocyte distribution wid th Auto (RBC) [Ratio]Ordered By: Vinay Bunting on 05-21-2022 Erythrocyte distribution width (RBC) [Ratio] 16.3 % 11.9-15.3 [facility] Erythrocyte sedimentation ra te by Photometric methodOrdered By: Vinay Bunhomer on 05-21-2022 ESR Photometric method (Bld) [Velocity] 9 mm/hr 0-29 [facility] Estimated glomerular filtrat ion rate (GFR) non- AmericanOrdered By: Vinay Bunting on 05-21-2022 GFR/1.73 sq M.predicted among non-blacks MDRD (S/P/Bld) [Vol rate/Area] 46 mL/Min [facility] Globulin Calc (S) [Mass/Vol] Ordered By: Vinay Bunting on 05-21-2022 Globulin (S) [Mass/Vol] 2.2 g/dL [facility] Glucose mean value [Mass/vol ume] in Blood Estimated from glycated hemoglobinOrdered By: Vinay Bunting on 05-21-2022 Average glucose Estimated from glycated hemoglobin (Bld) [Mass/Vol] 166 mg/dL [facility] Hematocrit Auto (Bld) [Volum e fraction]Ordered By: Vinay Bunting on 05-21-2022 Hematocrit (Bld) [Volume fraction] 29.1 % 34.0-46.4 [facility] Hemoglobin A1c percentageOrd ered By: Vinay Bunting on 05-21-2022 HbA1c (Bld) [Mass fraction] 7.4 % 4.3-5.6 [facility] Comment on above: Increased risk for d iabetes: 5.7 - 6.4 diabetes: >6.4 glycemic control for adults with diabetes: <7.0 Laboratory - Hematology and Cell countsOrdered By: Vinay Bunting on 05-21-2022 Nucleated RBC/100 WBC (Bld) [Ratio] 0.1 % 0-0.5 [facility] Lymphocytes Auto (Bld) [#/Vo l]Ordered By: Vinay Bunting on 05-21-2022 Lymphocytes (Bld) [#/Vol] 1.0 10*3/uL 1.00-4.8 [facility] Lymphocytes/100 WBC Auto (Bl d)Ordered By: Vinay Bunting on 05-21-2022 Lymphocytes/100 WBC (Bld) 26.3 % . [facility] MCH Auto (RBC) [Entitic mass ]Ordered By: Vinay Bunting on 05-21-2022 MCH (RBC) [Entitic mass] 28.6 pg 24.7-34.3 [facility] MCHC Auto (RBC) [Mass/Vol]Or dered By: Vinay Bunting on 05-21-2022 MCHC (RBC) [Mass/Vol] 33.5 g/dL 32.0-35.0 [facility] MCV Auto (RBC) [Entitic vol] Ordered By: Vinay Bunting on 05-21-2022 MCV (RBC) [Entitic vol] 85.5 fL 80-100 [facility] Monocytes Auto (Bld) [#/Vol] Ordered By: Vinay Bunting on 05-21-2022 Monocytes (Bld) [#/Vol] 0.2 10*3/uL 0.0-0.8 [facility] Monocytes/100 WBC Auto (Bld) Ordered By: Vinay Bunting on 05-21-2022 Monocytes/100 WBC (Bld) 6.4 % . [facility] Neutrophils Auto (Bld) [#/Vo l]Ordered By: Vinay Bunting on 05-21-2022 Neutrophils (Bld) [#/Vol] 2.4 10*3/uL 1.8-7.7 [facility] Neutrophils/100 WBC Auto (Bl d)Ordered By: Vinay Bunting on 05-21-2022 Neutrophils/100 WBC (Bld) 63.8 % . [facility] No Panel InformationOrdered By: Vinay Bunting on 05-21-2022 Estimated GFR () 56 mL/Min [facility] Comment on above: GFR estimated refere nce range: According to KDOQI guidelines, <60 ml/min/1.73m2 is sufficient to diagnose a patient with chronic kidney disease. Pharmacy Creatinine Clearance (Chem N/A [facility] Platelet mean volume Auto (B ld) [Entitic vol]Ordered By: Vinay Bunting on 05-21-2022 Platelet mean volume (Bld) [Entitic vol] 7.3 fL 6.3-10.7 [facility] Platelets Auto (Bld) [#/Vol] Ordered By: Vinay Bunting on 05-21-2022 Platelets (Bld) [#/Vol] 153 10*3/uL 150-450 [facility] Protein [Mass/volume] in Ser um or PlasmaOrdered By: Vinay Bunting on 05-21-2022 Protein [Mass/Vol] 5.5 g/dL 6.1-7.9 [facility] RBC Auto (Bld) [#/Vol]Ordere d By: Vinay Bunting on 05-21-2022 RBC (Bld) [#/Vol] 3.40 10*6/uL 3.60-5.00 [facility] Serum or plasma alanine stubbs otransferase measurement without P-5'-P (enzymatic activiOrdered By: Vinay Matta on 05-21-2022 ALT No additional P-5'-P [Catalytic activity/Vol] 28 U/L 10-60 [facility] Serum or plasma albumin/glob ulin mass ratioOrdered By: Vinay Matta on 05-21-2022 Albumin/Globulin [Mass ratio] 1.5 {ratio} [facility] Serum or plasma alkaline lorie sphatase measurement (enzymatic activity/volume)Ordered By: Vinay Matta on 05-21-2022 ALP [Catalytic activity/Vol] 96 U/L 32-92 [facility] Serum or plasma aspartate am inotransferase measurement (enzymatic activity/volume)Ordered By: Vinay Matta on 05-21-2022 AST [Catalytic activity/Vol] 30 U/L 10-42 [facility] Serum or plasma calcium emperatriz urement (mass/volume)Ordered By: Vinay Matta on 05-21-2022 Calcium [Mass/Vol] 8.5 mg/dL 8.2-10.2 [facility] Serum or plasma chloride edvin surement (moles/volume)Ordered By: Vinay Matta on 05-21-2022 Chloride [Moles/Vol] 102 mmol/L 95-114 [facility] Serum or plasma glucose emperatriz urement (mass/volume)Ordered By: Vinay Matta on 05-21-2022 Glucose [Mass/Vol] 167 mg/dL 70-100 [facility] Comment on above: ADA recommended refe rence range Random Glucose Reference Range is dependent on time and content of last meal. Glucose of more than 200 mg/dL in a nonstressed, ambulatory subject supports the diagnosis of Diabetes Mellitus. Serum or plasma high density lipoprotein (HDL) cholesterol measurementOrdered By: Vinay Matta on 05-21-2022 Cholesterol in HDL [Mass/Vol] 41 mg/dL 35-85 [facility] Comment on above: HDL CHOL ATP-III CLA SSIFICATION Cardiovascular Risk HDL > or equal to 60 mg/dL LOW HDL < 40 mg/dL HIGH Serum or plasma potassium me asurement (moles/volume)Ordered By: Vinay Bunting on 05-21-2022 Potassium [Moles/Vol] 4.5 mmol/L 3.5-5.1 [facility] Serum or plasma rheumatoid f actor measurement (units/volume)Ordered By: Vinay Bunting on 05-21-2022 Rheumatoid factor Qn [IU]/mL <14.0 [facility] Comment on above: Performed at: [address] [id number] [employer]iano Professor: Darren Ashby PhD, Phone: [phone] Serum or plasma sodium measu rement (moles/volume)Ordered By: Vinay Bunhomer on 05-21-2022 Sodium [Moles/Vol] 140 mmol/L 136-146 [facility] Serum or plasma total biliru bin measurement (mass/volume)Ordered By: Vinay Bunting on 05-21-2022 Bilirubin [Mass/Vol] 0.5 mg/dL 0.3-1.2 [facility] Serum or plasma total carbon dioxide measurement (moles/volume)Ordered By: Vinay Bunting on 05-21-2022 CO2 [Moles/Vol] 27.2 mmol/L 22.0-30.0 [facility] Serum or plasma total choles terol/high density lipoprotein (HDL) cholesterol mass ratOrdered By: Vinay Bunting on 05-21-2022 Cholesterol.total/Chol esterol in HDL [Mass ratio] 3.0 {ratio} <5.0 [facility] Serum or plasma urea nitroge n measurement (mass/volume)Ordered By: Vinay Matta on 05-21-2022 Urea nitrogen [Mass/Vol] 24 mg/dL 9-23 [facility] Serum or plasma uric acid me asurement (mass/volume)Ordered By: Vinay Bunhomer on 05-21-2022 Urate [Mass/Vol] 4.1 mg/dL 2.6-7.2 [facility] Triglyceride [Mass/volume] i n Serum or PlasmaOrdered By: Vinay Bunting on 05-21-2022 Triglyceride [Mass/Vol] 68 mg/dL 35-149 [facility] Comment on above: TRIG ATP III CLASSIF ICATION TRIG less than 150 mg/dL Normal TRIG 150-199 mg/dL Borderline high TRIG 200-500 mg/dL High TRIG greater than 500 mg/dL Very high Standard traceable to the Center for Disease Conrtrol and Prevention (CDC) test method. Automated basophil %on 01-31 Basophils/100 WBC (Bld) 0.4 % [facility] Automated basophil counton 0 01-31-2021 Basophils (Bld) [#/Vol] 0.0 10*3/uL 0.0-0.2 [facility] Automated blood lymphocyte c ount (number/volume)on 01-31-2021 Lymphocytes (Bld) [#/Vol] 1.3 10*3/uL 1.00-4.8 [facility] Automated blood lymphocyte c ount as percentage of total leukocyteson 01-31-2021 Lymphocytes/100 WBC (Bld) 19.5 % [facility] Automated blood monocyte cou nton 01-31-2021 Monocytes (Bld) [#/Vol] 0.3 10*3/uL 0.0-0.8 [facility] Automated blood platelet cou nt (count/volume)on 01-31-2021 Platelets (Bld) [#/Vol] 158 10*3/uL 150-450 [facility] Automated blood platelet edvin n volume measurementon 01-31-2021 Platelet mean volume (Bld) [Entitic vol] 7.2 fL 6.3-10.7 [facility] Automated eosinophil %on Eosinophils/100 WBC (Bld) 3.2 % [facility] Automated eosinophil counton 01-31-2021 Eosinophils (Bld) [#/Vol] 0.2 10*3/uL 0.0-0.45 [facility] Automated erythrocyte distri bution width ratioon 01-31-2021 Erythrocyte distribution width (RBC) [Ratio] 16.8 % 11.9-15.3 [facility] Automated erythrocyte mean c orpuscular hemoglobin (mass per erythrocyte)on 01-31-2021 MCH (RBC) [Entitic mass] 29.4 pg 24.7-34.3 [facility] Automated erythrocyte mean c orpuscular hemoglobin concentration measurement (mass/volon 01-31-2021 MCHC (RBC) [Mass/Vol] 33.9 g/dL 32.0-35.0 [facility] Automated erythrocyte mean c orpuscular volumeon 01-31-2021 MCV (RBC) [Entitic vol] 86.6 fL 80-100 [facility] Automated erythrocytes count in urine sediment (number/area)on 01-31-2021 RBC Auto (Urine sed) [#/Area] 0-1 [HPF] [facility] Automated leukocytes count i n urine sediment (number/area)on 01-31-2021 WBC Auto (Urine sed) [#/Area] 3-4 [HPF] [facility] Automated monocyte %on 01-31 Monocytes/100 WBC (Bld) 5.0 % [facility] Automated neutrophil %on Neutrophils/100 WBC (Bld) 71.9 % [facility] Automated urine color determ inationon 01-31-2021 Color (U) Yellow Yellow [facility] Blood erythrocytes automated count (number/volume)on 01-31-2021 RBC (Bld) [#/Vol] 4.01 10*6/uL 3.60-5.00 [facility] Blood hemoglobin measurement (mass/volume)on 01-31-2021 Hemoglobin (Bld) [Mass/Vol] 11.8 g/dL 11.8-15.4 [facility] Blood leukocytes automated c ount (number/volume)on 01-31-2021 WBC (Bld) [#/Vol] 6.7 10*3/uL 4.5-11.0 [facility] Blood neutrophil count by au tomated method (number/volume)on 01-31-2021 Neutrophils (Bld) [#/Vol] 4.8 10*3/uL 1.8-7.7 [facility] Body fluid albumin measureme nt (mass/volume)on 01-31-2021 Albumin (Body fld) [Mass/Vol] 3.7 g/dL 3.2-5.5 [facility] Cholesterol [Mass/volume] in Serum or Plasmaon 01-31-2021 Cholesterol [Mass/Vol] 129 mg/dL 140-200 [facility] on above: Chol less than 200 m g/dl low riskChol 201-239 mg/dl borderline riskChol 240 mg/dl and greater high risk Cholesterol in LDL [Mass/vol ume] in Serum or Plasma by calculationon 01-31-2021 Cholesterol in LDL [Mass/Vol] 63 mg/dL 0-100 [facility] Comment on above: LDL ATP III CLASSIFI CATIONLDL less than 100 mg/dL OptimalLDL 100-129 mg/dL Near or above optimalLDL 130-159 mg/dL Borderline highLDL 160-189 mg/dL HighLDL greater than 189 mg/dL Very high Cholesterol in VLDL [Mass/vo lume] in Serum or Plasma by calculationon 01-31-2021 Cholesterol in VLDL [Mass/Vol] 22 mg/dL [facility] Creatinine [Mass/volume] in Urineon 01-31-2021 Creatinine (U) [Mass/Vol] 127.7 mg/dL [facility] Comment on above: No reference range e stablished Estimated glomerular filtrat ion rate (GFR) non- Americanon 01-31-2021 GFR/1.73 sq M predicted among non-blacks MDRD (S/P/Bld) [Vol rate/Area] 45 mL/min/{1.73_m2} [facility] Glucose mean value [Mass/vol ume] in Blood Estimated from glycated hemoglobinon 01-31-2021 Average glucose Estimated from glycated hemoglobin mass conc (Bld) 174 mg/dL [facility] Hematocrit [Volume Fraction] of Blood by Automated counton 01-31-2021 Hematocrit (Bld) [Volume fraction] 34.7 % 34.0-46.4 [facility] Hemoglobin A1c percentageon 01-31-2021 HbA1c (Bld) [Mass fraction] 7.7 % 4.3-5.6 [facility] Comment on above: Increased risk for d iabetes: 5.7 - 6.4diabetes: >6.4glycemic control for adults with diabetes: <7.0 Otheron 01-31-2021 GFR/1.73 sq M.predicted MDRD (S/P/Bld) [Vol rate/Area] 55 mL/min/{1.73_m2} [facility] Comment on above: GFR estimated refere nce range: According to KDOQI guidelines, <60 ml/min/1.73m2 is sufficient to diagnose a patient with chronic kidney disease. Nucleated RBC/100 WBC (Bld) [Ratio] 0.2 % 0-0.5 [facility] Creatinine Clearance (Chem N/A [facility] Protein [Mass/volume] in Ser um or Plasmaon 01-31-2021 Protein [Mass/Vol] 6.2 g/dL 6.1-7.9 [facility] Serum globulin measurement b y calculation (mass/volume)on 01-31-2021 Globulin (S) [Mass/Vol] 2.5 g/dL [facility] Serum or plasma alanine stubbs otransferase measurement without P-5'-P (enzymatic activion 01-31-2021 ALT No additional P-5'-P [Catalytic activity/Vol] 47 U/L 10-60 [facility] Serum or plasma albumin/glob ulin mass ratioon 01-31-2021 Albumin/Globulin [Mass ratio] 1.5 {ratio} [facility] Serum or plasma alkaline lorie sphatase measurement (enzymatic activity/volume)on 01-31-2021 ALP [Catalytic activity/Vol] 90 U/L 32-92 [facility] Serum or plasma aspartate am inotransferase measurement (enzymatic activity/volume)on 01-31-2021 AST [Catalytic activity/Vol] 69 U/L 10-42 [facility] Serum or plasma calcium emperatriz urement (mass/volume)on 01-31-2021 Calcium [Mass/Vol] 8.4 mg/dL 8.2-10.2 [facility] Serum or plasma chloride edvin surement (moles/volume)on 01-31-2021 Chloride [Moles/Vol] 100 mmol/L 95-114 [facility] Serum or plasma creatinine m easurement with calculation of estimated glomerular filtron 01-31-2021 Creatinine [Mass/Vol] 1.17 mg/dL 0.44-1.03 [facility] Serum or plasma glucose emperatriz urement (mass/volume)on 01-31-2021 Glucose [Mass/Vol] 157 mg/dL 70-100 [facility] Comment on above: ADA recommended refe rence rangeRandom Glucose Reference Range is dependent on time and content of last meal. Glucose of more than 200 mg/dL in a nonstressed, ambulatory subject supports the diagnosis of Diabetes Mellitus. Serum or plasma high density lipoprotein (HDL) cholesterol measurementon 01-31-2021 Cholesterol in HDL [Mass/Vol] 43 mg/dL 35-85 [facility] Comment on above: HDL CHOL ATP-III CLA SSIFICATION Cardiovascular RiskHDL > or equal to 60 mg/dL LOWHDL < 40 mg/dL HIGH Serum or plasma potassium me asurement (moles/volume)on 01-31-2021 Potassium [Moles/Vol] 3.5 mmol/L 3.5-5.1 [facility] Serum or plasma sodium measu rement (moles/volume)on 01-31-2021 Sodium [Moles/Vol] 140 mmol/L 136-146 [facility] Serum or plasma total biliru bin measurement (mass/volume)on 01-31-2021 Bilirubin [Mass/Vol] 0.9 mg/dL 0.3-1.2 [facility] Serum or plasma total carbon dioxide measurement (moles/volume)on 01-31-2021 CO2 [Moles/Vol] 26.2 mmol/L 22.0-30.0 [facility] Serum or plasma total choles terol/high density lipoprotein (HDL) cholesterol mass dulce maria 01-31-2021 Cholesterol.total/Chol esterol in HDL [Mass ratio] 3.0 {ratio} [facility] Serum or plasma urea nitroge n measurement (mass/volume)on 01-31-2021 Urea nitrogen [Mass/Vol] 23 mg/dL 9- [facility] Specific gravity of Urine by Automated test stripon 01-31-2021 Specific gravity (U) [Rel density] 1.020 1.001-1.03 0 [facility] Squamous epithelial cells de tection in urine sediment by light microscopyon 01-31-2021 Epithelial cells.squamous LM Ql (Urine sed) 10-19 [HPF] [facility] Triglyceride [Mass/volume] i n Serum or Plasmaon 01-31-2021 Triglyceride [Mass/Vol] 114 mg/dL 35-149 [facility] Comment on above: TRIG ATP III CLASSIF ICATIONTRIG less than 150 mg/dL NormalTRIG 150-199 mg/dL Borderline highTRIG 200-500 mg/dL High TRIG greater than 500 mg/dL Very highStandard traceable to the Center for Disease Conrtrol and Prevention (CDC) test method. Urinalysison 01-31-2021 Hyaline casts LM Ql (Urine sed) 0-8 [LPF] [facility] Urine bacteria detection by automated methodon 01-31-2021 Bacteria Auto Ql (U) None seen None Seen [facility] Urine clarity by refractomet ry automatedon 01-31-2021 Clarity Refractometry automated (U) Clear Clear [facility] Urine glucose measurement by automated test strip (mass/volume)on 01-31-2021 Glucose Auto test strip (U) [Mass/Vol] Normal mg/dL Normal [facility] Urine hemoglobin detection b y automated test stripon 01-31-2021 Hemoglobin Auto test strip Ql (U) Negative Negative [facility] Urine ketones measurement by automated test strip (mass/volume)on 01-31-2021 Ketones (U) [Mass/Vol] Negative [facility] Urine leukocyte esterase det ection by automated test stripon 01-31-2021 Leukocyte esterase Auto test strip Ql (U) 1+ Negative [facility] Urine microalbumin measureme nt with detection limit of 20 mg/L or less (mass/volume)on 01-31-2021 Albumin DL <= 20 mg/L (U) [Mass/Vol] 0.9 mg/dL 0.0-1.8 [facility] Urine microalbumin/creatinin e mass ratioon 01-31-2021 Albumin/Creatinine DL <= 20 mg/L (U) [Mass ratio] 7.0 mg/g 0.0-30.0 [facility] Comment on above: 30-300 mg/g indicate s an increased risk for diabetic nephropathy. Greater than 300 mg/g is consistent with clinical nephropathy. (Am. J. Kidney Disease 1995, 25:107) Urine nitrite detection by t est stripon 01-31-2021 Nitrite Ql (U) Negative Negative [facility] Urine pH measurement by auto mated test stripon 01-31-2021 pH (U) 5.0 [pH] 5.0-9.0 [facility] Urine protein measurement by automated test strip (mass/volume)on 01-31-2021 Protein (U) [Mass/Vol] Trace mg/dL Negative [facility] Urine total bilirubin detect ion by test stripon 01-31-2021 Bilirubin Ql (U) Negative Negative [facility] Urine urobilinogen measureme nt by automated test strip (mass/volume)on 01-31-2021 Urobilinogen (U) [Mass/Vol] Normal mg/dL Normal [facility] Vital Signs Date Time Vital Sign Value Performing Clinician Facility 12-07-2023 09:08-0500 Blood Pressure Location Nisa Miranda [facility] 12-07-2023 09:08-0500 Body temperature 96.8 [degF] Nisa Miranda [facility] 12-07-2023 09:08-0500 Diastolic blood pressure 74 mm[Hg] Nisa Miranda [facility] 12-07-2023 09:08-0500 Heart rate 92 /min Nisa Miranda [facility] 12-07-2023 09:08-0500 Systolic blood pressure 122 mm[Hg] Nisa Miranda [facility] 10-20-2023 10:30-0500 Body height 162.56 cm Rule. Other [facility] Other 10-20-2023 10:30-0500 Body mass index (BMI) [Ratio] 36.04 kg/m2 Rule. Other [facility] Other 10-20-2023 10:30-0500 Body weight 95.26 kg Anh Delcid Other [facility] Other 10-20-2023 10:30-0500 Diastolic blood pressure 70 mm[Hg] Anh Delcid Other [facility] Other 10-20-2023 10:30-0500 SaO2% (BldA) [Mass fraction] 95 % Anh Delcid Other [facility] Other 10-20-2023 10:30-0500 Systolic blood pressure 123 mm[Hg] Anh Delcid Other [facility] Other 07-24-2023 13:56-0400 Body height 158 cm Daksha Cyrus PA-C Work Phone: [facility] 07-24-2023 13:56-0400 Body temperature 97.7 [degF] Daksha Cyrus PA-C Work Phone: [facility] 07-24-2023 13:56-0400 Body weight 92.63 kg Daksha Cyrus PA-C Work Phone: [facility] 07-24-2023 13:56-0400 Diastolic blood pressure 54 mm[Hg] Daksha Cyrus PA-C Work Phone: [facility] 07-24-2023 13:56-0400 Heart rate 79 /min Daksha Cyrus PA-C Work Phone: [facility] 07-24-2023 13:56-0400 Respiratory rate 16 /min Daksha Cyrus PA-C Work Phone: [facility] 07-24-2023 13:56-0400 SaO2% (BldA) [Mass fraction] 95 % Daksha Cyrus PA-C Work Phone: [facility] 07-24-2023 13:56-0400 Systolic blood pressure 132 mm[Hg] Daksha Cyrus PA-C Work Phone: [facility] 05-01-2023 13:42-0400 Body height 158 cm Daksha Cyrus PA-C Work Phone: [facility] 05-01-2023 13:42-0400 Body temperature 97.59 [degF] Daksha Kanger PA-C Work Phone: [facility] 05-01-2023 13:42-0400 Body weight 93.62 kg Daksha Kanger PA-C Work Phone: [facility] 05-01-2023 13:42-0400 Diastolic blood pressure 49 mm[Hg] Daksha Cyrus PA-C Work Phone: [facility] 05-01-2023 13:42-0400 Heart rate 82 /min Daksha Cyrus PA-C Work Phone: [facility] 05-01-2023 13:42-0400 Respiratory rate 18 /min Daksha Cyrus PA-C Work Phone: [facility] 05-01-2023 13:42-0400 SaO2% (BldA) [Mass fraction] 95 % Daksha Kanger PA-C Work Phone: [facility] 05-01-2023 13:42-0400 Systolic blood pressure 131 mm[Hg] Daksha Kanger PA-C Work Phone: [facility] 04-15-2023 09:26-0400 Blood Pressure Location Gomze SALAM [facility] 04-15-2023 09:26-0400 Diastolic blood pressure 75 mm[Hg] Gomez SALAM [facility] 04-15-2023 09:26-0400 Heart rate 82 /min Gomez SALAM [facility] 04-15-2023 09:26-0400 Respiratory rate 16 /min Gomez SALAM [facility] 04-15-2023 09:26-0400 SaO2% (BldA) [Mass fraction] 96 % Gomez SALAM [facility] 04-15-2023 09:26-0400 Systolic blood pressure 127 mm[Hg] Gomez SAWAM [facility] 03-13-2023 10:00-0400 Diastolic blood pressure 72 mm[Hg] DO Vinay Bunting Work Phone: [facility] 03-13-2023 10:00-0400 Heart rate 76 /min DO Vinay Bunting Work Phone: [facility] 03-13-2023 10:00-0400 Respiratory rate 16 /min DO Vinay Bunting Work Phone: [facility] 03-13-2023 10:00-0400 SaO2% (BldA) [Mass fraction] 96 % DO Vinay Bunting Work Phone: [facility] 03-13-2023 10:00-0400 Systolic blood pressure 126 mm[Hg] DO Vinay Bunting Work Phone: [facility] 03-13-2023 08:00-0400 Body temperature 97.7 [degF] DO Vinay Bunting Work Phone: [facility] 03-13-2023 05:27-0400 Body weight 96.8 kg DO Vinay Bunting Work Phone: [facility] 03-12-2023 12:20-0400 Body height 157.48 cm DO Vinay Bunting Work Phone: [facility] 02-06-2023 14:08-0400 Body height 158 cm Daksha Cyrus PA-C Work Phone: [facility] 02-06-2023 14:08-0400 Body temperature 97.2 [degF] Daksha Cyrus PA-C Work Phone: [facility] 02-06-2023 14:08-0400 Body weight 97.8 kg Daksha Cyrus PA-C Work Phone: [facility] 02-06-2023 14:08-0400 Diastolic blood pressure 61 mm[Hg] Daksha Cyrus PA-C Work Phone: [facility] 02-06-2023 14:08-0400 Heart rate 84 /min Daksha Cyrus PA-C Work Phone: [facility] 02-06-2023 14:08-0400 Respiratory rate 16 /min Daksha Cyrus PA-C Work Phone: [facility] 02-06-2023 14:08-0400 SaO2% (BldA) [Mass fraction] 96 % Daksha Cyrus PA-C Work Phone: [facility] 02-06-2023 14:08-0400 Systolic blood pressure 137 mm[Hg] Daksha Cyrus PA-C Work Phone: [facility] 12-29-2022 16:28-0500 Diastolic blood pressure 67 mm[Hg] DO Vinay Bunting Work Phone: [facility] 12-29-2022 16:28-0500 Heart rate 87 /min DO Vinay Bunting Work Phone: [facility] 12-29-2022 16:28-0500 Respiratory rate 16 /min DO Vinay Bunting Work Phone: [facility] 12-29-2022 16:28-0500 SaO2% (BldA) [Mass fraction] 96 % DO Vinay Bunting Work Phone: [facility] 12-29-2022 16:28-0500 Systolic blood pressure 156 mm[Hg] DO Vinay Bunting Work Phone: [facility] 12-29-2022 13:16-0500 Body height 162.56 cm DO Vinay Bunting Work Phone: [facility] 12-29-2022 13:16-0500 Body temperature 97.5 [degF] DO Vinay Bunting Work Phone: [facility] 12-29-2022 13:16-0500 Body weight 97.06 kg DO Vinay Bunting Work Phone: [facility] 12-24-2022 10:10-0500 Blood Pressure Location Nisa Miranda [facility] 12-24-2022 10:10-0500 Body temperature 96.8 [degF] Nisa Chatmanmetz [facility] 12-24-2022 10:10-0500 Diastolic blood pressure 75 mm[Hg] Nisa Chatmanmetz [facility] 12-24-2022 10:10-0500 Heart rate 77 /min Nisa Chatmanmetz [facility] 12-24-2022 10:10-0500 Systolic blood pressure 132 mm[Hg] Nisa Chatmanmetz [facility] 12-12-2022 14:23-0500 Body height 158 cm Daksha Cyrus PA-C Work Phone: [facility] 12-12-2022 14:23-0500 Body temperature 97.39 [degF] Daksha Cyrus PA-C Work Phone: [facility] 12-12-2022 14:23-0500 Body weight 97.98 kg Daksha Cyrus PA-C Work Phone: [facility] 12-12-2022 14:23-0500 Diastolic blood pressure 75 mm[Hg] Daksha Cyrus PA-C Work Phone: [facility] 12-12-2022 14:23-0500 Heart rate 69 /min Daksha Cyrus PA-C Work Phone: [facility] 12-12-2022 14:23-0500 Respiratory rate 16 /min Daksha Cyrus PA-C Work Phone: [facility] 12-12-2022 14:23-0500 SaO2% (BldA) [Mass fraction] 96 % Daksha Kanger PA-C Work Phone: [facility] 12-12-2022 14:23-0500 Systolic blood pressure 170 mm[Hg] Daksha Kanger PA-C Work Phone: [facility] 10-30-2022 13:19-0500 Body temperature 98.71 [degF] Chair Dent Work Phone: [facility] 10-30-2022 13:19-0500 Diastolic blood pressure 55 mm[Hg] Chair Jarred Work Phone: [facility] 10-30-2022 13:19-0500 Heart rate 82 /min Chair Jarred Work Phone: [facility] 10-30-2022 13:19-0500 Respiratory rate 18 /min Chair Jarred Work Phone: [facility] 10-30-2022 13:19-0500 SaO2% (BldA) [Mass fraction] 95 % Chair Dent Work Phone: [facility] 10-30-2022 13:19-0500 Systolic blood pressure 127 mm[Hg] Chair Dent Work Phone: [facility] 10-23-2022 13:45-0500 Diastolic blood pressure 47 mm[Hg] Chair Jarred Work Phone: [facility] 10-23-2022 13:45-0500 Heart rate 78 /min Chair Jarred Work Phone: [facility] 10-23-2022 13:45-0500 Respiratory rate 16 /min Chair Dent Work Phone: [facility] 10-23-2022 13:45-0500 SaO2% (BldA) [Mass fraction] 99 % Chair Dent Work Phone: [facility] 10-23-2022 13:45-0500 Systolic blood pressure 128 mm[Hg] Chair Dent Work Phone: [facility] 10-16-2022 10:01-0500 Body height 158 cm Daksha Cyrus PA-C Work Phone: [facility] 10-16-2022 10:01-0500 Body temperature 97.9 [degF] Daksha Cyrus PA-C Work Phone: [facility] 10-16-2022 10:01-0500 Body weight 97.07 kg Daksha Cyrus PA-C Work Phone: [facility] 10-16-2022 10:01-0500 Diastolic blood pressure 62 mm[Hg] Daksha Cyrus PA-C Work Phone: [facility] 10-16-2022 10:01-0500 Heart rate 92 /min Daksha Cyrus PA-C Work Phone: [facility] 10-16-2022 10:01-0500 Respiratory rate 16 /min Daksha Cyrus PA-C Work Phone: [facility] 10-16-2022 10:01-0500 SaO2% (BldA) [Mass fraction] 98 % Daksha Cyrus PA-C Work Phone: [facility] 10-16-2022 10:01-0500 Systolic blood pressure 149 mm[Hg] Daksha Cyrus PA-C Work Phone: [facility] 10-14-2022 11:30-0500 Body height 162.56 cm Rule. Other [facility] Other 10-14-2022 11:30-0500 Body mass index (BMI) [Ratio] 36.39 kg/m2 Anh Delcid Other [facility] Other 10-14-2022 11:30-0500 Body temperature 97.8 [degF] Rule. Other [facility] Other 10-14-2022 11:30-0500 Body weight 96.16 kg Anh Delcid Other [facility] Other 10-14-2022 11:30-0500 Diastolic blood pressure 74 mm[Hg] Anh Delcid Other [facility] Other 10-14-2022 11:30-0500 SaO2% (BldA) [Mass fraction] 97 % Anh Delcid Other [facility] Other 10-14-2022 11:30-0500 Systolic blood pressure 118 mm[Hg] Anh Delcid Other [facility] Other 10-01-2022 10:51-0500 Body height 158 cm Delores Walker MD Work Phone: [facility] 10-01-2022 10:51-0500 Body temperature 96.91 [degF] Delores Walker MD Work Phone: [facility] 10-01-2022 10:51-0500 Body weight 98.07 kg Delores Walker MD Work Phone: [facility] 10-01-2022 10:51-0500 Diastolic blood pressure 66 mm[Hg] Delores Walker MD Work Phone: [facility] 10-01-2022 10:51-0500 Heart rate 92 /min Delores Walker MD Work Phone: [facility] 10-01-2022 10:51-0500 Respiratory rate 18 /min Delores Walker MD Work Phone: [facility] 10-01-2022 10:51-0500 SaO2% (BldA) [Mass fraction] 96 % Delores Walker MD Work Phone: [facility] 10-01-2022 10:51-0500 Systolic blood pressure 153 mm[Hg] Delores Walker MD Work Phone: [facility] 09-02-2022 10:24-0400 Diastolic blood pressure 71 mm[Hg] Jose Carlos Mattson [facility] 09-02-2022 10:24-0400 Mean blood pressure 96 mm[Hg] Jose Carlos Mattson [facility] 09-02-2022 10:24-0400 Systolic blood pressure 145 mm[Hg] Jose Carlos Mattson [facility] 09-02-2022 10:10-0400 Blood Pressure Location Jose Carlos Mattson [facility] 09-02-2022 10:10-0400 Diastolic blood pressure 74 mm[Hg] Jose Carlos Mattson [facility] 09-02-2022 10:10-0400 Heart rate 90 /min Jose Carlos Mattson [facility] 09-02-2022 10:10-0400 Respiratory rate 18 /min Jose Carlos Mattson [facility] 09-02-2022 10:10-0400 SaO2% (BldA) [Mass fraction] 99 % Jose Carlos Mattson [facility] 09-02-2022 10:10-0400 Systolic blood pressure 145 mm[Hg] Jose Carlos Mattson [facility] 07-22-2022 20:31-0400 Diastolic blood pressure 62 mm[Hg] DO Vinay Bunting Work Phone: [facility] 07-22-2022 20:31-0400 Heart rate 73 /min DO Vinay Bunting Work Phone: [facility] 07-22-2022 20:31-0400 Respiratory rate 16 /min DO Vinay Bunting Work Phone: [facility] 07-22-2022 20:31-0400 SaO2% (BldA) [Mass fraction] 99 % DO Vinay Bunting Work Phone: [facility] 07-22-2022 20:31-0400 Systolic blood pressure 132 mm[Hg] DO Vinay Bunting Work Phone: [facility] 07-22-2022 15:52-0400 Body height 162.56 cm DO Vinay Bunting Work Phone: [facility] 07-22-2022 15:52-0400 Body temperature 98 [degF] DO Vinay Bunting Work Phone: [facility] 07-22-2022 15:52-0400 Body weight 98.06 kg DO Vinay Bunting Work Phone: [facility] 06-12-2022 09:33-0400 Blood Pressure Location Gomez SALAM [facility] 06-12-2022 09:33-0400 Diastolic blood pressure 77 mm[Hg] Gomez SALAM [facility] 06-12-2022 09:33-0400 Heart rate 87 /min Gomez SALAM [facility] 06-12-2022 09:33-0400 Respiratory rate 14 /min Gomez SALAM [facility] 06-12-2022 09:33-0400 SaO2% (BldA) [Mass fraction] 97 % Gomez SALAM [facility] 06-12-2022 09:33-0400 Systolic blood pressure 163 mm[Hg] Gomez SALAM [facility] 06-12-2022 09:20-0400 Blood Pressure Location Gomez SALAM [facility] 06-12-2022 09:20-0400 Diastolic blood pressure 70 mm[Hg] Gomez SALAM [facility] 06-12-2022 09:20-0400 Heart rate 92 /min Gomez SALAM [facility] 06-12-2022 09:20-0400 Respiratory rate 29 /min Gomez SALAM [facility] 06-12-2022 09:20-0400 SaO2% (BldA) [Mass fraction] 97 % Gomez SALAM [facility] 06-12-2022 09:20-0400 Systolic blood pressure 127 mm[Hg] Gomez SALAM [facility] 06-12-2022 09:15-0400 Blood Pressure Location Gomez SALAM [facility] 06-12-2022 09:15-0400 Diastolic blood pressure 73 mm[Hg] Gomez SALAM [facility] 06-12-2022 09:15-0400 Heart rate 92 /min Gomez SALAM [facility] 06-12-2022 09:15-0400 Respiratory rate 10 /min Gomez SALAM [facility] 06-12-2022 09:15-0400 SaO2% (BldA) [Mass fraction] 91 % Gomez SALAM [facility] 06-12-2022 09:15-0400 Systolic blood pressure 129 mm[Hg] Gomez SALAM [facility] 06-12-2022 09:08-0400 Body temperature 97.34 [degF] Gomez SALAM [facility] 06-12-2022 07:48-0400 Body temperature 96.8 [degF] Gomez SALAM [facility] 04-23-2022 09:40-0400 Diastolic blood pressure 76 mm[Hg] Gomez SALAM [facility] 04-23-2022 09:40-0400 Heart rate 78 /min Gomez SALAM [facility] 04-23-2022 09:40-0400 Systolic blood pressure 138 mm[Hg] Gomez SALAM [facility] Encounters Encounter Date Encounter Type Care Provider Facility Start: 12-07-2023 ambulatory Nisa Miranda Facili ty:[facility] Start: 12-07-2023 End: 12-07-2023 Patient encounter procedure Nisa Miranda [facility] Start: 10-26-2023 Telephone encounter Samantha Guerra Hematology/Oncology Comment on above: Results Start: 10-23-2023 End: 10-23-2023 ambulatory NISA MIRANDA Facility:[facility] Start: 10-20-2023 Office outpatient vi sit 25 minutes Anh [facility] Start: 10-20-2023 End: 10-20-2023 ambulatory Vinay Bunting Facility:[facility] Start: 10-20-2023 End: 10-20-2023 ambulatory DO Vinay Bunting Work Phone: [facility] Work Phone: Start: 10-20-2023 End: 10-20-2023 Patient encounter procedure DO Vinay Bunting Work Phone: [facility] Work Phone: Start: 09-05-2023 End: 09-05-2023 ambulatory Vinay Bunting Facility:[facility] Start: 09-05-2023 End: 09-05-2023 ambulatory DO Vinay Bunting Work Phone: [facility] Work Phone: Start: 09-05-2023 End: 09-05-2023 Patient encounter procedure DO Vinay Bunting Work Phone: [facility] Work Phone: Start: 07-27-2023 Telephone encounter Samantha Guerra Hematology/Oncology Comment on above: Results Start: 07-24-2023 End: 07-24-2023 ambulatory Daksha Bridges PA-C Work Phone: Hematology/Oncology Comment on above: Iron deficiency anem ia secondary to inadequate dietary iron intake (Primary Dx); Stage 3b chronic kidney disease (HCC) Start: 07-24-2023 End: 07-24-2023 Patient encounter procedure Daksha Bridges PA-C Work Phone: [facility] Start: 07-24-2023 Telephone encounter Daksha rodrigez PA-C Work Phone: Hematology/Oncology Comment on above: Results Start: 05-20-2023 End: 05-20-2023 ambulatory Vinay Bunting Facility:[facility] Start: 05-04-2023 Telephone encounter Karlie Car RN Hematology/Oncology Comment on above: Results Start: 05-01-2023 End: 05-01-2023 ambulatory Daksha Bridges PA-C Work Phone: Hematology/Oncology Comment on above: Iron deficiency anem ia secondary to inadequate dietary iron intake (Primary Dx); Stage 3b chronic kidney disease (HCC) Start: 05-01-2023 End: 05-01-2023 Patient encounter procedure Daksha Bridges PA-C Work Phone: [facility] Start: 04-25-2023 ambulatory Facility:[facility] Start: 04-22-2023 End: 04-23-[address] [facility] Facility:[facility] Start: 04-22-2023 End: 04-22-2023 Patient encounter procedure Gomez SALAM [facility] Start: 04-15-2023 End: 04-16-2023 ambulatory Gomezlorraine SPRINGAM Facility:[facility] Start: 04-15-2023 End: 04-15-2023 Patient encounter procedure Jason RUSSELL [facility] Start: 03-27-2023 End: 03-28-[address] VINAY BUNTING Facility:[facility] Start: 03-13-2023 End: 03-13-2023 ambulatory Vinay Bunting Facility:[facility] Start: 03-13-2023 End: 03-13-2023 ambulatory DO Vinay Bunting Work Phone: [facility] Work Phone: Start: 03-13-2023 End: 03-13-2023 Patient encounter procedure DO Vinay Bunting Work Phone: [facility]Electrodiagnostic [facility] Work Phone: Start: 03-11-2023 End: 03-13-2023 Evaluation and management of inpatient Kimberly Kayan Facility:[facility] Start: 03-11-2023 End: 03-13-2023 Evaluation and management of inpatient DO Vinay Bunting Work Phone: [facility] [place] Work Phone: Start: 03-11-2023 ambulatory Facility:[id number] Start: 02-23-2023 End: 02-24-2023 ambulatory JASON RUSSELL Facility:[facility] Start: 02-09-2023 Telephone encounter Jovanni Rg RN Hematology/Oncology Comment on above: Results Start: 02-06-2023 End: 02-06-2023 ambulatory DAKSHA BRIDGES Facility:[facility] Start: 02-06-2023 End: 02-06-2023 ambulatory Daksha Bridges PA-C Work Phone: Hematology/Oncology Comment on above: Iron deficiency anem ia secondary to inadequate dietary iron intake (Primary Dx) Start: 02-06-2023 End: 02-06-2023 Patient encounter procedure Daksha Bridges PA-C Work Phone: [facility] Start: 02-03-2023 End: 02-04-2023 ambulatory Nisa Avilaz Facility:[facility] Start: 01-16-2023 End: 01-16-2023 ambulatory Vinay Bunting Facility:[facility] Start: 01-16-2023 End: 01-16-2023 Patient encounter procedure DO Vinay Bunting Work Phone: [facility] Work Phone: Start: 01-08-2023 End: 01-09-2023 ambulatory Nisa Miranda Facility:[facility] Start: 01-08-2023 End: 01-08-2023 Patient encounter procedure Nisa Miranda [facility] Start: 12-29-2022 End: 12-29-2022 ambulatory Vinay Bunting Facility:[facility] Start: 12-29-2022 End: 12-29-2022 Admission to same day surgery center DO Vinay Bunting Work Phone: [facility] Start: 12-29-2022 End: 12-29-2022 ambulatory DO Vinay Bunting Work Phone: [facility] Work Phone: Start: 12-24-2022 End: 12-25-2022 ambulatory Nisa Miranda Facility:[facility] Start: 12-24-2022 End: 12-24-2022 Patient encounter procedure Nisa Miranda [facility] Start: 12-15-2022 Telephone encounter Jovanni Rg RN Hematology/Oncology Comment on above: Results Start: 12-12-2022 End: 12-12-2022 ambulatory Daksha Henriquez Cyrus [place]-C Work Phone: Hematology/Oncology Comment on above: Iron deficiency anem ia secondary to inadequate dietary iron intake (Primary Dx) Start: 12-12-2022 End: 12-12-2022 Patient encounter procedure Daksha Henriquez Cyrus [place]-C Work Phone: [facility] Start: 10-30-2022 End: 10-31-2022 ambulatory [facility] Facility:[facility] Start: 10-30-2022 End: 10-30-2022 ambulatory Chair 15 Jarred Work Phone: Hematology/Oncology Comment on above: Iron deficiency anem ia due to chronic blood loss (Primary Dx) Start: 10-23-2022 End: 10-23-2022 ambulatory Chair 14 Jarred Work Phone: Hematology/Oncology Comment on above: Iron deficiency anem ia due to chronic blood loss (Primary Dx) Start: 10-22-2022 Social Work Renetta Johnson [facility] [employer] Hematolo gy/Oncology Start: 10-16-2022 End: 10-16-2022 Patient encounter procedure Daksha Henriquez Cyrus [place]-C Work Phone: [facility] Start: 10-16-2022 End: 10-16-2022 ambulatory Daksha Henriquez Cyrus [place]-C Work Phone: Hematology/Oncology Comment on above: Anemia, unspecified type (Primary Dx); Iron deficiency anemia secondary to inadequate dietary iron intake Iron deficiency anem ia due to chronic blood loss (Primary Dx) Start: 10-15-2022 Telephone encounter Financial Navigator Braden Work Phone: Hematology/Oncology Comment on above: Benefits Investigati on Start: 10-14-2022 Office outpatient vi sit 25 minutes Anh Delcid [facility] Start: 10-14-2022 End: 10-14-2022 ambulatory DO Vinay Bunting Work Phone: [facility] Work Phone: Start: 10-14-2022 End: 10-14-2022 Patient encounter procedure DO Vinay Bunting Work Phone: [facility] Start: 10-10-2022 Social Work Renetta BOWSER Hematolo gy/Oncology Start: 10-03-2022 Telephone encounter Delores gardner MD Work Phone: Hematology/Oncology Comment on above: Results, Lab Start: 10-01-2022 End: 10-01-2022 ambulatory Delores Walker MD Work Phone: Hematology/Oncology Comment on above: Anemia, unspecified type (Primary Dx) Start: 10-01-2022 End: 10-01-2022 Patient encounter procedure Delores Walker MD Work Phone: [facility] Start: 09-26-2022 Chart abstracting Delores hernandez MD Work Phone: Hematology/Oncology Start: 09-19-2022 End: 09-19-2022 Patient encounter procedure Nisa Miranda [facility] Start: 09-09-2022 End: 09-10-[address] DOCTOR SALGADO Facility:[facility] Start: 09-02-2022 End: 09-02-2022 Patient encounter procedure Jose Carlos Mattson [facility] Start: 07-31-2022 End: 07-31-2022 Patient encounter procedure DO Vinay Bunting Work Phone: [facility] Start: 07-24-2022 End: 07-24-2022 Patient encounter procedure DO Vinay Bunting Work Phone: [facility] Start: 07-22-2022 End: 07-22-2022 Emergency department patient visit DO Vinay Bunting Work Phone: [facility] Start: 06-24-2022 End: 06-25-2022 ambulatory JASON RUSSELL Facility:[facility] Start: 06-23-2022 End: 06-24-[address] MCLEAN PAXTON Facility:[facility] Start: 06-16-2022 End: 06-16-2022 Patient encounter procedure DO Vinay Bunting Work Phone: [facility] Start: 06-12-2022 End: 06-12-2022 Patient encounter procedure Jason RUSSELL [facility] Start: 05-21-2022 End: 05-21-2022 Patient encounter procedure DO Vinay Bunting Work Phone: [facility] Start: 04-23-2022 End: 04-23-2022 Patient encounter procedure Jason RUSSELL [facility] Start: 04-22-2022 End: 04-22-2022 Patient encounter procedure DO Vinay Bunting Work Phone: [facility] Start: 01-31-2021 End: 01-31-2021 Patient encounter procedure Vinay Bunting [facility] Procedures Date Procedure Procedure Detail Performing Clinician Start: 03-11-2023 MRI of head DO Vinay Bunting Work Phone: Start: 03-11-2023 CT angiography of head DO Vinay Bunting Work Phone: Start: 03-11-2023 CT angiography of neck vessels DO Vinay Bunting Work Phone: Start: 03-11-2023 CT of head without contrast DO Vinay Bu nting Work Phone: Start: 03-11-2023 Plain chest X-ray DO Vinay Bunting Work Phone: Start: 03-11-2023 Urine culture DO Vinay Bunting Work Phone: Start: 12-29-2022 Debridement DO Vinay Bunting Work Phone: Start: 07-31-2022 Dual energy X-ray absorptiometry DO Naren in [place] Work Phone: Start: 07-22-2022 Plain chest X-ray DO Vinay Matta Work Phone: Start: 06-16-2022 Screening mammography of bilateral breasts DO Vinay Matta Work Phone: Start: 06-12-2022 Colonoscopy Gomez SAW Start: 06-12-[address] [facility] Start: 04-22-2022 X-ray of both knees DO Vinay Matta Work Phone: Scar management [facility] Urine culture DO Vinay muniz Work Phone: Plan of Treatment Date Care Activity Detail Author Start: 10-23-2026 Diabetes Screening Diabetes Screenin [facility] Start: 07-24-2026 DIABETES SCREEN DIABETES SCREEN [facility] Start: 05-01-2026 DIABETES SCREEN DIABETES SCREEN [facility] Start: 02-06-2026 DIABETES SCREEN DIABETES SCREEN [facility] Start: 12-12-2025 DIABETES SCREEN DIABETES SCREEN [facility] Start: 10-01-2025 DIABETES SCREEN DIABETES SCREEN [facility] Start: 08-01-2023 End: 10-01-2023 CBC W Auto Differential panel - Blood CBC + DIFF Lab Routine Iron deficiency anemia secondary to inadequate dietary iron intake Expected: 08/01/2023 (Approximate), Expires: 10/01/2023 [facility] Work Phone: Comment on above: Expected: 08/01/2023 (Approximate), Expires: 10/01/2023 Start: 08-01-2023 End: 10-01-2023 Comprehensive metabolic 2000 panel - Serum or Plasma COMP METABOLIC PANEL Lab Routine Iron deficiency anemia secondary to inadequate dietary iron intake Expected: 08/01/2023 (Approximate), Expires: 10/01/2023 [facility] Work Phone: Comment on above: Expected: 08/01/2023 (Approximate), Expires: 10/01/2023 Start: 08-01-2023 End: 10-01-2023 Ferritin [Mass/volume] in Serum or Plasma FERRITIN BLD Lab Routine Iron deficiency anemia secondary to inadequate dietary iron intake Expected: 08/01/2023 (Approximate), Expires: 10/01/2023 [facility] Work Phone: Comment on above: Expected: 08/01/2023 (Approximate), Expires: 10/01/2023 Start: 08-01-2023 End: 10-01-2023 Iron and Iron binding capacity panel - Serum or Plasma IRON + TIBC Lab Routine Iron deficiency anemia secondary to inadequate dietary iron intake Expected: 08/01/2023 (Approximate), Expires: 10/01/2023 [facility] Work Phone: Comment on above: Expected: 08/01/2023 (Approximate), Expires: 10/01/2023 Start: 07-24-2023 End: 09-23-2023 CBC W Auto Differential panel - Blood CBC + DIFF Lab Routine Iron deficiency anemia secondary to inadequate dietary iron intake Stage 3b chronic kidney disease (HCC) Expected: 07/24/2023, Expires: 09/23/2023 [facility] Work Phone: Comment on above: Expected: 07/24/2023 , Expires: 09/23/2023 Start: 07-24-2023 End: 09-23-2023 Comprehensive metabolic 2000 panel - Serum or Plasma COMP METABOLIC PANEL Lab Routine Iron deficiency anemia secondary to inadequate dietary iron intake Stage 3b chronic kidney disease (HCC) Expected: 07/24/2023, Expires: 09/23/2023 [facility] Work Phone: Comment on above: Expected: 07/24/2023 , Expires: 09/23/2023 Start: 07-24-2023 End: 09-23-2023 Ferritin [Mass/volume] in Serum or Plasma FERRITIN BLD Lab Routine Iron deficiency anemia secondary to inadequate dietary iron intake Stage 3b chronic kidney disease (HCC) Expected: 07/24/2023, Expires: 09/23/2023 [facility] Work Phone: Comment on above: Expected: 07/24/2023 , Expires: 09/23/2023 Start: 07-24-2023 End: 09-23-2023 Iron and Iron binding capacity panel - Serum or Plasma IRON + TIBC Lab Routine Iron deficiency anemia secondary to inadequate dietary iron intake Stage 3b chronic kidney disease (HCC) Expected: 07/24/2023, Expires: 09/23/2023 [facility] Work Phone: Comment on above: Expected: 07/24/2023 , Expires: 09/23/2023 Start: 07-17-2023 Covid-19 Vaccine () Covid-19 Vaccine () [facility] Start: 07-17-2023 Influenza vaccination [facility] Start: 05-09-2023 End: 07-09-2023 CBC W Auto Differential panel - Blood CBC + DIFF Lab Routine Iron deficiency anemia secondary to inadequate dietary iron intake Expected: 05/09/2023 (Approximate), Expires: 07/09/2023 [facility] Work Phone: Comment on above: Expected: 05/09/2023 (Approximate), Expires: 07/09/2023 Start: 05-09-2023 End: 07-09-2023 Comprehensive metabolic 2000 panel - Serum or Plasma COMP METABOLIC PANEL Lab Routine Iron deficiency anemia secondary to inadequate dietary iron intake Expected: 05/09/2023 (Approximate), Expires: 07/09/2023 [facility] Work Phone: Comment on above: Expected: 05/09/2023 (Approximate), Expires: 07/09/2023 Start: 05-09-2023 End: 07-09-2023 Ferritin [Mass/volume] in Serum or Plasma FERRITIN BLD Lab Routine Iron deficiency anemia secondary to inadequate dietary iron intake Expected: 05/09/2023 (Approximate), Expires: 07/09/2023 [facility] Work Phone: Comment on above: Expected: 05/09/2023 (Approximate), Expires: 07/09/2023 Start: 05-09-2023 End: 07-09-2023 Iron and Iron binding capacity panel - Serum or Plasma IRON + TIBC Lab Routine Iron deficiency anemia secondary to inadequate dietary iron intake Expected: 05/09/2023 (Approximate), Expires: 07/09/2023 [facility] Work Phone: Comment on above: Expected: 05/09/2023 (Approximate), Expires: 07/09/2023 Start: 03-13-2023 [facility] Start: 03-11-2023 Physical therapy procedure [facility] Start: 03-11-2023 Hospital admission [facility] Start: 03-11-2023 Referral to neurologist [facility] Start: 02-09-2023 End: 04-11-2023 CBC W Auto Differential panel - Blood CBC + DIFF Lab Routine Iron deficiency anemia secondary to inadequate dietary iron intake Expected: 02/09/2023 (Approximate), Expires: 04/11/2023 [facility] Work Phone: Comment on above: Expected: 02/09/2023 (Approximate), Expires: 04/11/2023 Start: 02-09-2023 End: 04-11-2023 Comprehensive metabolic 2000 panel - Serum or Plasma COMP METABOLIC PANEL Lab Routine Iron deficiency anemia secondary to inadequate dietary iron intake Expected: 02/09/2023 (Approximate), Expires: 04/11/2023 [facility] Work Phone: Comment on above: Expected: 02/09/2023 (Approximate), Expires: 04/11/2023 Start: 02-09-2023 End: 04-11-2023 Ferritin [Mass/volume] in Serum or Plasma FERRITIN BLD Lab Routine Iron deficiency anemia secondary to inadequate dietary iron intake Expected: 02/09/2023 (Approximate), Expires: 04/11/2023 [facility] Work Phone: Comment on above: Expected: 02/09/2023 (Approximate), Expires: 04/11/2023 Start: 02-09-2023 End: 04-11-2023 Iron and Iron binding capacity panel - Serum or Plasma IRON + TIBC Lab Routine Iron deficiency anemia secondary to inadequate dietary iron intake Expected: 02/09/2023 (Approximate), Expires: 04/11/2023 [facility] Work Phone: Comment on above: Expected: 02/09/2023 (Approximate), Expires: 04/11/2023 Start: 02-06-2023 End: 04-08-2023 CBC W Auto Differential panel - Blood CBC + DIFF Lab Routine Iron deficiency anemia secondary to inadequate dietary iron intake Expected: 02/06/2023, Expires: 04/08/2023 [facility] Work Phone: Comment on above: Expected: 02/06/2023 , Expires: 04/08/2023 Start: 02-06-2023 End: 04-08-2023 Comprehensive metabolic 2000 panel - Serum or Plasma COMP METABOLIC PANEL Lab Routine Iron deficiency anemia secondary to inadequate dietary iron intake Expected: 02/06/2023, Expires: 04/08/2023 [facility] Work Phone: Comment on above: Expected: 02/06/2023 , Expires: 04/08/2023 Start: 02-06-2023 End: 04-08-2023 Iron and Iron binding capacity panel - Serum or Plasma IRON + TIBC Lab Routine Iron deficiency anemia secondary to inadequate dietary iron intake Expected: 02/06/2023, Expires: 04/08/2023 [facility] Work Phone: Comment on above: Expected: 02/06/2023 , Expires: 04/08/2023 Start: 12-29-2022 [facility] Start: 11-27-2022 End: 01-27-2023 CBC W Auto Differential panel - Blood CBC + DIFF Lab Routine Anemia, unspecified type Iron deficiency anemia secondary to inadequate dietary iron intake Expected: 11/27/2022, Expires: 01/27/2023 [facility] Work Phone: Comment on above: Expected: 11/27/2022 , Expires: 01/27/2023 Start: 11-27-2022 End: 01-27-2023 Comprehensive metabolic 2000 panel - Serum or Plasma COMP METABOLIC PANEL Lab Routine Anemia, unspecified type Iron deficiency anemia secondary to inadequate dietary iron intake Expected: 11/27/2022, Expires: 01/27/2023 [facility] Work Phone: Comment on above: Expected: 11/27/2022 , Expires: 01/27/2023 Start: 11-27-2022 End: 01-27-2023 Ferritin [Mass/volume] in Serum or Plasma FERRITIN BLD Lab Routine Anemia, unspecified type Iron deficiency anemia secondary to inadequate dietary iron intake Expected: 11/27/2022, Expires: 01/27/2023 [facility] Work Phone: Comment on above: Expected: 11/27/2022 , Expires: 01/27/2023 Start: 11-27-2022 End: 01-27-2023 Iron and Iron binding capacity panel - Serum or Plasma IRON + TIBC Lab Routine Anemia, unspecified type Iron deficiency anemia secondary to inadequate dietary iron intake Expected: 11/27/2022, Expires: 01/27/2023 [facility] Work Phone: Comment on above: Expected: 11/27/2022 , Expires: 01/27/2023 Start: 11-16-2022 ADVANCE DIRECTIVE DISCUSSION ADVANCE DIRECTIVE DISCUSSION [facility] Start: 11-16-2022 DEPRESSION ASSESSMENT DEPRESSION ASS ESSMENT [facility] Start: 10-29-2022 End: 12-29-2022 MONOCLONAL PROTEIN, SERUM (BLOOD) MONOCLONAL PROTEIN, SERUM (BLOOD) Lab Routine Anemia, unspecified type Expected: 10/29/2022 (Approximate), Expires: 12/29/2022 [facility] Work Phone: Comment on above: Expected: 10/29/2022 (Approximate), Expires: 12/29/2022 Start: 10-29-2022 End: 12-29-2022 PROTEIN ELECTROPHORESIS SERUM W/INTERP PROTEIN ELECTROPHORESIS SERUM W/INTERP Lab Routine Anemia, unspecified type Expected: 10/29/2022 (Approximate), Expires: 12/29/2022 [facility] Work Phone: Comment on above: Expected: 10/29/2022 (Approximate), Expires: 12/29/2022 Start: 10-01-2022 End: 12-01-2022 Cobalamin (Vitamin B12) [Mass/volume] in Serum or Plasma [facility] Work Phone: Comment on above: Expected: 10/01/2022 , Expires: 12/01/2022 Start: 10-01-2022 End: 10-01-2023 Ferritin [Mass/volume] in Serum or Plasma [facility] Work Phone: Comment on above: Expected: 10/01/2022 , Expires: 10/01/2023 Start: 10-01-2022 End: 12-01-2022 Folate [Mass/volume] in Serum or Plasma [facility] Work Phone: Comment on above: Expected: 10/01/2022 , Expires: 12/01/2022 Start: 10-01-2022 End: 10-01-2023 Iron and Iron binding capacity panel - Serum or Plasma [facility] Work Phone: Comment on above: Expected: 10/01/2022 , Expires: 10/01/2023 Start: 10-01-2022 End: 12-01-2022 PROTEIN ELECT RND UR W/INTERP [facility] Work Phone: Comment on above: Expected: 10/01/2022 , Expires: 12/01/2022 Start: 10-01-2022 End: 12-01-2022 Zinc [Mass/volume] in Serum or Plasma [facility] Work Phone: Comment on above: Expected: 10/01/2022 , Expires: 12/01/2022 Start: 07-17-2022 Influenza vaccination INFLUENZA (#1) [facility] Start: 11-16-2021 ADVANCE DIRECTIVE DISCUSSION ADVANCE DIRECTIVE DISCUSSION [facility] Start: 11-16-2021 DEPRESSION ASSESSMENT DEPRESSION ASS ESSMENT [facility] Start: 10-08-2021 COVID-19 VACCINE (4 - Booster for Pfizer series) COVID-19 VACCINE (4 - Booster for Pfizer series) [facility] Start: 10-08-2021 COVID-19 VACCINE (4 - Pfizer series) COVID-19 VACCINE (4 - Pfizer series) [facility] Start: 08-16-2019 Pneumococcal Vaccine : 65+ (2 - PCV) Pneumococcal Vaccine: 65+ (2 - PCV) [facility] Start: 08-16-2019 PNEUMOCOCCAL: 65+ (2 - PCV) PNEUMOCOCCAL: 65+ (2 - PCV) [facility] Start: 2013 BONE DENSITY BONE DENSITY [facility] Start: 2013 Bone Density Screening Bone Density Screening [facility] Start: 2013 PNEUMOCOCCAL: 65+ (1 - PCV) PNEUMOCOCCAL: 65+ (1 - PCV) [facility] Start: 2008 RSV Vaccine (1 - 1-d ose 60+ series) RSV Vaccine (1 - 1-dose 60+ series) [facility] Start: 1998 SHINGRIX VACCINE (1 of 2) SILVESTRE GRIX VACCINE (1 of 2) [facility] Start: 1993 COLOGUARD (FIT-DNA) COLOGUARD (FIT-D NA) [facility] Start: 1993 Colonoscopy COLONOSCOPY [facility] Start: 1993 COLORECTAL CANCER SCREENING COLORECTAL CANCER SCREENING [facility] Start: [address] COLONOGRAPHY [facility] Start: 1993 DIABETES SCREEN DIABETES SCREEN [facility] Start: 1993 FECAL OCCULT BLOOD FECAL OCCULT BLOO D [facility] Start: 1993 Lipid 1996 panel - S hilda or Plasma Lipid Screening [facility] Start: 1993 LIPID SCREEN LIPID SCREEN [facility] Start: 1993 SIGMOIDOSCOPY SIGMOIDOSCOPY [facility] Start: 1988 Mammography [facility] Start: 1967 Urine microalbumin profile [facility] Start: 1966 HEPATITIS C SCREENING HEPATITIS C SC [facility] Start: 06-29-1949 COVID-19 VACCINE (#1) COVID-19 VACCI NE (#1) [facility] Bacteria identified in Urine by Culture [facility] MONOCLONAL PROTEIN, SERUM (BLOOD) MONOCLONAL PROTEIN, SERUM (BLOOD) Lab Routine Anemia, unspecified type 10/01/2022 12:19 PM EST [facility] Work Phone: Patient Education [facility] Work Phone: Patient referral [facility] Work Phone: PROTEIN ELECTROPHORE SIS SERUM W/INTERP PROTEIN ELECTROPHORESIS SERUM W/INTERP Lab Routine Anemia, unspecified type 10/01/2022 12:19 PM EST [facility] Work Phone: [facility] Immunizations Immunization Date Immunization Notes Care Provider Fa cility 11-25-2023 influenza virus vacc ine, unspecified formulation Nisa Ruth [facility] 08-27-2022 influenza virus vacc ine, unspecified formulation Nisa Ruth [facility] 08-27-2022 influenza, high-dose , quadrivalent vaccine (FLUZONE HIGH DOSE QUADRIVALENT) Delores Walker MD Work Phone: [facility] 09-26-2021 influenza virus vacc ine, unspecified formulation Nisapaco ChatamnRuth [facility] 09-26-2021 influenza, high-dose , quadrivalent vaccine (FLUZONE HIGH DOSE QUADRIVALENT) Delores Walker MD Work Phone: [facility] 08-13-2021 SARS-CoV-2 (COVID-19 ) mRNA BNT-162b2 vax [employer] [facility] Comment on above: Result Comment: 2021: [id number] 02-05-2021 SARS-CoV-2 (COVID-19 ) mRNA BNT-162b2 v[address] Nisa Ruth [facility] 01-14-2021 SARS-CoV-2 (COVID-19 ) mRNA BNT-162b2 v[address] Nisa Ruth [facility] 08-16-2018 influenza nasal, unspecified formulation Delores Walker MD Work Phone: [facility] 08-16-2018 influenza virus vacc ine, unspecified formulation Nisa Miranda [facility] 08-16-2018 pneumococcal polysaccharide vaccine, [address] [facility] 09-18-2016 influenza virus vacc ine, unspecified formulation Nisa Miranda [facility] 09-18-2016 influenza, high dose seasonal, preservative-free Delores Walker MD Work Phone: [facility] 10-17-2015 influenza virus vacc ine, unspecified formulation Nisa Miranda [facility] 10-17-2015 influenza, seasonal, injectable Delores Walker MD Work Phone: [facility] Payers Date Payer Category Payer Medicare [id number] 2022 Medicaid [id number] 2022 Self-pay [id number] 2022 Unknown [id number] 2021 Unknown ANTHEM BLUE CROS S AND BLUE SHIELD ANTHEM MEDIBLUE HMO [id number] 2021-[facility] [phone] [address] [place] [address] O [id number] 1959 Unknown [id number] 1948 Unknown [id number] 2.16.840.1.557312.3.579.2.593 1948 Unknown [id number] 2.16.840.1.073142.3.579.2.593 1948 Unknown [id number] 2.16.840.1.049651.3.579.2.593 1948 Unknown [id number] 2.16.840.1.462182.3.579.2.593 1948 Unknown [id number] 2.16.840.1.226660.3.579.2.593 1948 Unknown [id number] 2.16.840.1.223328.3.579.2.593 1948 Unknown [id number] 2.16.840.1.610396.3.579.2.356 1948 Unknown [id number] 2.16.840.1.270824.3.579.2.356 1948 Unknown [id number] 2.16.840.1.924334.3.579.2.727 1948 Unknown [id number] 2.16.840.1.462510.3.579.2.727 1948 Unknown [id number] 2.16.840.1.867375.3.579.2.727 1948 Unknown [id number] 2.16.840.1.124892.3.579.2.727 1948 Unknown [id number] 2.16.840.1.661424.3.579.2.727 1948 Unknown [id number] 2.16.840.1.371864.3.579.2.727 Medicare [id number] Unknown [id number] 2.16.840.1.978940.3.579.2.531 Unknown [id number] 2.16.840.1.379906.3.579.2.531 Unknown [id number] 2.16.840.1.385866.3.579.2.531 Unknown [id number] 2.16.840.1.759005.3.579.2.531 Unknown [id number] 2.16.840.1.035447.3.579.2.531 Unknown [id number] 2.16.840.1.400687.3.579.2.531 Unknown [id number] 2.16.840.1.857534.3.579.2.531 Social History Date Type Detail Facility Start: 12-26-2017 End: 12-07-2023 Tobacco smoking status NHIS Never smoked tobacco (finding) [facility] Start: 1950 Sex Assigned At Female [facility] Tobacco smoking status Never [facility] Start: 05-01-2023 End: 07-24-2023 Sex Assigned At Female [facility] Start: 09-26-2022 End: 10-01-2022 Tobacco use and exposure Smokeless tobacco non-user [facility] Start: 09-26-2022 Alcohol intake Ex-drinker (finding) [facility] Start: 1950 Sex Assigned At Not on file [facility] History of tobacco use Passive smoker [facility] Start: 10-01-2022 End: 10-23-2023 Alcohol intake Lifetime non-drinker (finding) [facility] Start: 09-21-2022 End: 10-16-2022 Exposure to SARS-CoV-2 (event) Not sure [facility] Start: 05-01-2023 End: 07-24-2023 History of Social function [facility] Goals Date Patient Goal Desired Activity /State Functional Status Date Assessment Result Facility 12-07-2023 Functional Status N/A [facility] 04-15-2023 [facility] 03-13-2023 Functional status Patient at [facility] Work Phone: 03-11-2023 Functional status Disability Sta tus Patient at Baseline [facility] Work Phone: 12-24-2022 Functional Status N/A [facility] 09-02-2022 Functional Status No [facility] 06-12-2022 Functional Status N/A [facility] Mental Status Date Assessment Result Facility 03-13-2023 Cognitive function Cognitive Sta tus Patient at Baseline [facility] Work Phone: Clinical Notes 06-12-2022 to 12-07-2023 Telephone Encounter - Samantha Mcmahan RN - 10/26/2023 9:27 AM ESTTelephone Encounter - Samantha Mcmahan RN - 10/26/2023 9:27 AM EST Note Date & Type Note Facility 12-07-2023 Hospital Discharg e instructions Patient Education 12/07/2023 09:08:45 Anemia Anemia Anemia is a condition in which there are not enough red blood cells or hemoglobin in the blood. Hemoglobin is a substance in red blood cells that carries oxygen. When you do not have enough red blood cells or hemoglobin (are anemic), your body cannot get enough oxygen, and your organs may not work properly. As a result, you may feel very tired or have other problems. What are the causes? Common causes of anemia include: Excessive bleeding. Anemia can be caused by excessive bleeding inside or outside the body, including bleeding from the intestines or from heavy menstrual periods in females. Poor nutrition. Long-lasting (chronic) kidney, thyroid, and liver disease. Bone marrow disorders, spleen problems, and blood disorders. Cancer and treatments for cancer. Human immunodeficiency virus (HIV) and acquired immunodeficiency syndrome (AIDS). Infections, medicines, and autoimmune disorders that destroy red blood cells. What are the signs or symptoms? Symptoms of this condition include: Minor weakness. Dizziness. Headache, or difficulties concentrating and sleeping. Heartbeats that feel irregular or faster than normal (palpitations). Shortness of breath, especially with exercise. Pale skin, lips, and nails, or cold hands and feet. Upset stomach (indigestion) and nausea. Symptoms may occur suddenly or develop slowly. If your anemia is mild, you may not have symptoms. How is this diagnosed? This condition is diagnosed based on blood tests, your medical history, and a physical exam. In some cases, a test may be needed in which cells are removed from the soft tissue inside of a bone and looked at under a microscope (bone marrow biopsy). Your health care provider may also check your stool (feces) for blood and may do more testing to look for the cause of your bleeding. Other tests may include: Imaging tests, such as a CT scan or MRI. A procedure to see inside your esophagus and stomach (endoscopy). The esophagus is the part of the body that moves food from your mouth to your stomach. A procedure to see inside your colon and rectum (colonoscopy). How is this treated? Treatment for this condition depends on the cause. If you continue to lose a lot of blood, you may need to be treated at a hospital. Treatment may include: Taking supplements of iron, vitamin B12, or folic acid. Taking a hormone medicine (erythropoietin) that can help to stimulate red blood cell growth. Receiving donated blood through an IV (blood transfusion). This may be needed if you lose a lot of blood. Making changes to your diet. Having surgery to remove your spleen. Follow these instructions at home: Take [id number] and prescription medicines only as told by your health care provider. Take supplements only as told by your health care provider. Follow any diet instructions that you were given by your health care provider. Keep all follow-up visits. Your health care provider will want to recheck your blood tests. Contact a health care provider if: You develop new bleeding anywhere in the body. You are very weak. Get help right away if: You are short of breath. You have pain in your abdomen or chest. You are dizzy or feel faint. You have trouble concentrating. You have bloody stools, black stools, or tarry stools. You vomit repeatedly or you vomit up blood. These symptoms may be an emergency. Get help right away. Call 911. Do not wait to see if the symptoms will go away. Do not drive yourself to the hospital. Summary Anemia is a condition in which you do not have enough red blood cells or enough of a substance in your red blood cells that carries oxygen. Symptoms may occur suddenly or develop slowly. If your anemia is mild, you may not have symptoms. This condition is diagnosed with blood tests, a medical history, and a physical exam. Other tests may be needed. Treatment for this condition depends on the cause of the anemia. This information is not intended to replace advice given to you by your health care provider. Make sure you discuss any questions you have with your health care provider. Document Revised: 01/26/2023 Document Reviewed: 01/26/2023 [employer] Patient Education 2022 [employer] Follow Up Care 11/12/2023 09:08:30 With:Nisa Miranda CNP Address: When:3 months [facility] 10-26-2023 Miscellaneous Notes Pt aware of MM message. She denies questions, needs or concerns at this time. Samantha Mcmahan RN ----- Message from Daksha Bridges PA-C sent at 10/26/2023 8:01 AM EST ----- Please call with normal iron levels documented in this encounter [facility] 10-23-2023 Note HNO ID: [id number] Author: Daksha Bridges PA-C Service: ? Author Type: Physician Tester Operator Helper Type: Progress Notes Filed: 10/23/2023 3:25 PM Note Text: PATIENT NAME: Anh Nikhil [facility] NO.: [id number] ATTENDING PHYSICIAN: Delores Walker MD DATE OF SERVICE: May 01, 2023 (Elements copied from my note dated February 06, 2023, have been reviewed and updated where appropriate, and all reflect current assessment and medical decision making during today's encounter, May 01, 2023) CHIEF COMPLAINT: Follow up Diagnosis: NAINA Treatment: Venofer x 3 doses 10/2022 HPI: Anh returns for follow up. She is recovering from an upper respiratory infection. Otherwise she is feeling better. She has been more fatigued which she feels is related to her illness. PCP decided to watch her kidney function. Current Outpatient Medications Medication Sig Calcium Carb-Magnesium Carb 250-300 mg tab Take by mouth. (Patient not taking: Reported on 05/01/2023) MAGNESIUM OXIDE ORAL Take 1 tablet by mouth once daily. MEDIHONEY, HONEY, 100 % pste APPLY A THIN LAYER TWICE DAILY allopurinol (ZYLOPRIM) 100 mg tablet Take 100 mg by mouth once daily. ASCORBIC ACID, VITAMIN C, ORAL Take 500 mg by mouth once daily. aspirin (ASPIR-81 ORAL) Take 81 mg by mouth once daily. atenolol (TENORMIN) 50 mg tablet Take 50 mg by mouth once daily. atorvastatin (LIPITOR) 20 mg tablet Take 20 mg by mouth once daily. cholecalciferol (VITAMIN D3) 1,000 unit tab tablet Take 1,000 Units by mouth once daily. diclofenac, EC, (VOLTAREN) 75 mg EC tablet Take 75 mg by mouth once daily. furosemide (LASIX) 20 mg tablet Take 20 mg by mouth once daily. gabapentin (NEURONTIN) 300 mg capsule Take 300 mg by mouth daily at bedtime. lisinopril-hydroCHLOROthiazide (PRINZIDE,ZESTORETIC) 10-12.5 mg per tablet Take 1 tablet by mouth once daily. glimepiride (AMARYL) 2 mg tablet Take 2 mg by mouth daily with breakfast. metformin HCl (METFORMIN ORAL) Take 1,000 mg by mouth once daily. omeprazole (PRILOSEC) 20 mg capsule Take 20 mg by mouth once daily. rOPINIRole (REQUIP) 0.5 mg tablet Take 0.5 mg by mouth twice daily. No current facility-administered medications for this visit. ALLERGIES Allergen Reactions Acetaminophen-Codei* Other: See Comments pt states she is unwilling to try even plain tylenol after this experience even though she states she took tylenol prior to this and had no problems Tylenol #3 [Codeine] Other: See Comments Upset stomach PAST MEDICAL HISTORY Diagnosis Date Anemia Benign fundic gland polyps of stomach Carpal tunnel syndrome Chronic back pain Diabetes mellitus (HCC) Diverticulosis GERD (gastroesophageal reflux disease) Hemorrhoids Hyperlipidemia Polyneuropathy Rectal polyp Restless leg syndrome PAST SURGICAL HISTORY Procedure Laterality Date COLONOSCOPY EGD W/O BRSH SPEC VARICIES INJ FAMILY HISTORY Problem Relation Age of Onset other (Congenital heart disease) Mother Lung Cancer Father Social History Tobacco Use Smoking status: Never Passive exposure: Past Smokeless tobacco: Never Substance Use Topics Alcohol use: Never Drug use: Not Currently REVIEW OF SYSTEMS GENERAL: No weight loss, malaise or fevers. No night sweats. +fatigue is stable HEENT: Negative for headaches, No changes in hearing or vision, no nose bleeds or other nasal problems. RESPIRATORY: Negative for cough, wheezing CARDIOVASCULAR: Negative for chest pain, leg swelling and palpitations GI: Negative for abdominal discomfort, blood in stools or black stools and change in bowel habits : Negative for dysuria, frequency and incontinence MUSCULOSKELETAL: Negative for joint pain or swelling, back pain, and muscle pain. SKIN: Negative for lesions, rash, and itching. HEMATOLOGY/LYMPHOLOGY Negative for prolonged bleeding, bruising easily, and swollen nodes. NEURO: Negative for numbness or tingling of hands/feet. No weakness. PHYSICAL EXAMINATION: BP 141/59 Pulse 86 Temp 36.2 ?C (97.2 ?F) (Temporal) Resp 16 Ht 158 cm (5' 2.21 ) Wt 96.8 kg (213 lb 6.4 oz) SpO2 100% BMI 38.77 kg/m? ECOG PERFORMANCE STATUS: 1- Restricted in physically strenuous activity. Carries out light duty. General: Alert and oriented, no distress, pleasant and cooperative. Heart: Regular, normal S1 and S2, no murmurs, rubs, or gallops Lungs: Clear to auscultation bilaterally Abdomen: Benign Extremities: Feet/ankles without edema, posterior tibial pulses full and symmetrical LABS: Glucose (mg/dL) Date Value 10/23/2023 167 Potassium (mmol/L) Date Value 10/23/2023 4.7 Sodium (mmol/L) Date Value 10/23/2023 140 Chloride (mmol/L) Date Value 10/23/2023 99 CO2 (mmol/L) Date Value 10/23/2023 28 Creatinine (mg/dL) Date Value 10/23/2023 1.61 BUN (mg/dL) Date Value 10/23/2023 48 Anion Gap (mmol/L) Date Value 10/23/2023 13 Calcium, Total (mg/dL) Date Value (more content not included)... [facility] 10-20-2023 Evaluation note Encounter Date Diagnosis Assessment Notes Oct, Obstructive sleep apnea (ICD-10 - G47.33) Fortunately, the patient is using and benefiting from treatment. Download was reviewed with patient, Current pressure is controlling apnea well, And we will make no changes at this time. Pt does have a significant leak but this is likely due to mouth leak as opposed to inproper fit. A prescription was sent to the [employer] for new supplies throughout the year. She was encouraged to continue to use her machine nightly, throughout the entire night and for naps as this does provide clinical benefit. She will follow-up in the sleep clinic in 1 year or sooner if problems. Oct, BMI 36.0-36.9,adul t (ICD-10 - Z68.36) Patient's weight is unchanged since last OV, positive effects of weight loss on COLTEN were reviewed. She was encouraged to continue to work on diet modification and increase activity, we will continue to monitor. Oct, Nasal congestion (ICD-10 - R09.81) She has been sick recently and has been having issues with nasal congestion and not being able to tolerate machine. It does seem that she does have some mouth leakage when she is more congested, which then results in dry mouth. Reminded patient to try the intranasal corticosteroid for symptom relief. She can also consider wearing a chinstrap or mouth tape. She refuses a FFM d/t claustrophobic issues. Oct, Restless leg syndrome (ICD-10 - G25.81) Pt notes that she is taking gabapentin and requip for this. She feels that RLS symptoms have increased lately. She has brought this up with her PCP, but he does not want to increase it any more at this time. Pt does have anemia, she is currently seeing a plate worker helper and has needed some blood transfusion. They are currently managing this and she may need to see a front office manager for kidney issues. Discussed c pt that her increase in RLS is likely due to her anemia and likely won't resolve until her blood count normalizes. Meanwhile, continue with symptomatic treatment with requip and gabapentin. Oct, Other Call if any questions or problems. For Sleep Apnea: Patient is advised to work on healthy diet choices and appropriate servings, weight control, regular exercise as directed, and reduce fat intake. Use machine regularly, and keep up with mask changes as needed. Call if problems with mask toleration, increased sleepiness, or poor response to treatment. Take medication as prescribed, keep follow up appointments, get any testing that's been ordered in a timely fashion. Do not smoke [employer] Other 09-11-2023 Miscellaneous Notes* Telephone Encounter - Samantha Mcmahan RN - 07/27/2023 10:25 AM EDT Pt aware of MM message. She denies any questions or concerns at this time Samantha Mcmahan RN * Telephone Encounter - Samantha Mcmahan RN - 07/27/2023 10:24 AM EDT ----- Message from Daksha Bridges PA-C sent at 07/27/2023 8:07 AM EDT ----- Please call with normal iron studies documented in this encounter[facility]23 NoteHNO ID: [id number] Author: Daksha Bridges PA-C Service: ? Author Type: Physician Tester Operator Helper Type: Progress Notes Filed: 07/24/2023 2:26 PM Note Text: PATIENT NAME: Anh [facility] NO.: [id number] ATTENDING PHYSICIAN: Delores Walker MD DATE OF SERVICE: May 01, 2023 (Elements copied from my note dated February 06, 2023, have been reviewed and updated where appropriate, and all reflect current assessment and medical decision making during today's encounter, May 01, 2023) CHIEF COMPLAINT: Follow up Diagnosis: NAINA Treatment: Venofer x 3 doses 10/2022 HPI: Anh returns for follow up. She has been doing well.She does have carpal tunnel in her right wrist that she is wearing at night. Denies any worsening fatigue, shortness of breath or dizziness. Denies bleeding. Current Outpatient Medications Medication Sig MAGNESIUM OXIDE ORAL Take 1 tablet by mouth once daily. MEDIHONEY, HONEY, 100 % pste APPLY A THIN LAYER TWICE DAILY allopurinol (ZYLOPRIM) 100 mg tablet Take 100 mg by mouth once daily. ASCORBIC ACID, VITAMIN C, ORAL Take 500 mg by mouth once daily. aspirin (ASPIR-81 ORAL) Take 81 mg by mouth once daily. atenolol (TENORMIN) 50 mg tablet Take 50 mg by mouth once daily. atorvastatin (LIPITOR) 20 mg tablet Take 20 mg by mouth once daily. cholecalciferol (VITAMIN D3) 1,000 unit tab tablet Take 1,000 Units by mouth once daily. diclofenac, EC, (VOLTAREN) 75 mg EC tablet Take 75 mg by mouth once daily. furosemide (LASIX) 20 mg tablet Take 20 mg by mouth once daily. gabapentin (NEURONTIN) 300 mg capsule Take 300 mg by mouth daily at bedtime. lisinopril-hydroCHLOROthiazide (PRINZIDE,ZESTORETIC) 10-12.5 mg per tablet Take 1 tablet by mouth once daily. glimepiride (AMARYL) 2 mg tablet Take 2 mg by mouth daily with breakfast. metformin HCl (METFORMIN ORAL) Take 1,000 mg by mouth once daily. omeprazole (PRILOSEC) 20 mg capsule Take 20 mg by mouth once daily. rOPINIRole (REQUIP) 0.5 mg tablet Take 0.5 mg by mouth twice daily. Calcium Carb-Magnesium Carb 250-300 mg tab Take by mouth. (Patient not taking: Reported on 05/01/2023) No current facility-administered medications for this visit. ALLERGIES Allergen Reactions Acetaminophen-Codei* Other: See Comments pt states she is unwilling to try even plain tylenol after this experience even though she states she took tylenol prior to this and had no problems Tylenol #3 [Codeine] Other: See Comments Upset stomach PAST MEDICAL HISTORY Diagnosis Date Anemia Benign fundic gland polyps of stomach Diabetes mellitus (HCC) Diverticulosis GERD (gastroesophageal reflux disease) Hemorrhoids Hyperlipidemia Polyneuropathy Rectal polyp Restless leg syndrome PAST SURGICAL HISTORY Procedure Laterality Date COLONOSCOPY EGD W/O BRSH SPEC VARICIES INJ FAMILY HISTORY Problem Relation Age of Onset other (Congenital heart disease) Mother Lung Cancer Father Social History Tobacco Use Smoking status: Never Passive exposure: Past Smokeless tobacco: Never Substance Use Topics Alcohol use: Never Drug use: Not Currently REVIEW OF SYSTEMS GENERAL: No weight loss, malaise or fevers. No night sweats. +fatigue HEENT: Negative for headaches, No changes in hearing or vision, no nose bleeds or other nasal problems. RESPIRATORY: Negative for cough, wheezing +ONEIL CARDIOVASCULAR: Negative for chest pain, leg swelling and palpitations GI: Negative for abdominal discomfort, blood in stools or black stools and change in bowel habits : Negative for dysuria, frequency and incontinence MUSCULOSKELETAL: Negative for joint pain or swelling, back pain, and muscle pain. SKIN: Negative for lesions, rash, and itching. HEMATOLOGY/LYMPHOLOGY Negative for prolonged bleeding, bruising easily, and swollen nodes. NEURO: Negative for numbness or tingling of hands/feet. No weakness. PHYSICAL EXAMINATION: BP 132/54 Pulse 79 Temp 36.5 ?C (97.7 ?F) (Temporal) Resp 16 Ht 158 cm (5' 2.21 ) Wt 92.6 kg (204 lb 3.2 oz) SpO2 95% BMI 37.10 kg/m? ECOG PERFORMANCE STATUS: 1- Restricted in physically strenuous activity. Carries out light duty. General: Alert and oriented, no distress, pleasant and cooperative. Heart: Regular, normal S1 and S2, no murmurs, rubs, or gallops Lungs: Clear to auscultation bilaterally Abdomen: Benign Extremities: Feet/ankles without edema, posterior tibial pulses full and symmetrical LABS: Glucose (mg/dL) Date Value 07/24/2023 159 Potassium (mmol/L) Date Value 07/24/2023 4.6 Sodium (mmol/L) Date Value 07/24/2023 145 Chloride (mmol/L) Date Value 07/24/2023 105 CO2 (mmol/L) Date Value 07/24/2023 25 Creatinine (mg/dL) Date Value 07/24/2023 1.71 BUN (mg/dL) Date Value 07/24/2023 42 Anion Gap (mmol/L) Date Value 07/24/2023 15 Calcium, Total (mg/dL) Date Value 07/24/2023 9.9 Protein, Total (g/dL) Date Value 07/24/2023 7.0 Albumin ( (more content not included)...[facility]09-08-2023 Miscellaneous Notes* Telephone Encounter - Herminia Diaz RN - 07/24/2023 3:19 PM EDT Call made to Dr. Matta's office. Office was closed for the weekend. Left message on secure VM with message. Labs faxed as requested. Herminia Snider, RN * Telephone Encounter - Daksha Bridges PA-C - 07/24/2023 2:21 PM EDT Please call Dr. Matta's office and inform them that we have noticed a progressive decline in Anh's GFR and Creatinine over the year. Please forward the last year of labs to his office. Anh raphael doesn't see him until August, but I didn't know if he'd like to see her sooner. Daksha Bridges PA-C documented in this encounterOhio [facility]09-08-2023 Nurse Note* Beverly Reza MA - 07/24/2023 2:01 PM EDT Patient states that she has been very tired but her neuropathy have been bothering her. Beverly Marcus MA documented in this encounterOhio [facility]09-08-2023 History of Present illness Narrative* Daksha Bridges PA-C - 07/24/2023 2:00 PM EDT PATIENT NAME: Anh Tejeda [facility] NO.: [id number] ATTENDING PHYSICIAN: Delores Walker MD DATE OF SERVICE: May 01, 2023 (Elements copied from my note dated February 06, 2023, have been reviewed and updated where appropriate, and all reflect current assessment and medical decision making during today's encounter, April) CHIEF COMPLAINT: Follow up Diagnosis: NAINA Treatment: Venofer x 3 doses 10/2022 HPI: Anh returns for follow up. She has been doing well.She does have carpal tunnel in her right wrist that she is wearing at night. Denies any worsening fatigue, shortness of breath or dizziness. Denies bleeding. Current Outpatient Medications Medication Sig MAGNESIUM OXIDE ORAL Take 1 tablet by mouth once daily. MEDIHONEY, HONEY, 100 % pste APPLY A THIN LAYER TWICE DAILY allopurinol (ZYLOPRIM) 100 mg tablet Take 100 mg by mouth once daily. ASCORBIC ACID, VITAMIN C, ORAL Take 500 mg by mouth once daily. aspirin (ASPIR-81 ORAL) Take 81 mg by mouth once daily. atenolol (TENORMIN) 50 mg tablet Take 50 mg by mouth once daily. atorvastatin (LIPITOR) 20 mg tablet Take 20 mg by mouth once daily. cholecalciferol (VITAMIN D3) 1,000 unit tab tablet Take 1,000 Units by mouth once daily. diclofenac, EC, (VOLTAREN) 75 mg EC tablet Take 75 mg by mouth once daily. furosemide (LASIX) 20 mg tablet Take 20 mg by mouth once daily. gabapentin (NEURONTIN) 300 mg capsule Take 300 mg by mouth daily at bedtime. lisinopril-hydroCHLOROthiazide (PRINZIDE,ZESTORETIC) 10-12.5 mg per tablet Take 1 tablet by mouth once daily. glimepiride (AMARYL) 2 mg tablet Take 2 mg by mouth daily with breakfast. metformin HCl (METFORMIN ORAL) Take 1,000 mg by mouth once daily. omeprazole (PRILOSEC) 20 mg capsule Take 20 mg by mouth once daily. rOPINIRole (REQUIP) 0.5 mg tablet Take 0.5 mg by mouth twice daily. Calcium Carb-Magnesium Carb 250-300 mg tab Take by mouth. (Patient not taking: Reported on 05/01/2023) No current facility-administered medications for this visit. ALLERGIES Allergen Reactions Acetaminophen-Codei* Other: See Comments pt states she is unwilling to try even plain tylenol after this experience even though she states she took tylenol prior to this and had no problems Tylenol #3 [Codeine] Other: See Comments Upset stomach PAST MEDICAL HISTORY Diagnosis Date Anemia Benign fundic gland polyps of stomach Diabetes mellitus (HCC) Diverticulosis GERD (gastroesophageal reflux disease) Hemorrhoids Hyperlipidemia Polyneuropathy Rectal polyp Restless leg syndrome PAST SURGICAL HISTORY Procedure Laterality Date COLONOSCOPY EGD W/O BRSH SPEC VARICIES INJ FAMILY HISTORY Problem Relation Age of Onset other (Congenital heart disease) Mother Lung Cancer Father Social History Tobacco Use Smoking status: Never Passive exposure: Past Smokeless tobacco: Never Substance Use Topics Alcohol use: Never Drug use: Not Currently REVIEW OF SYSTEMS GENERAL: No weight loss, malaise or fevers. No night sweats. +fatigue HEENT: Negative for headaches, No changes in hearing or vision, no nose bleeds or other nasal problems. RESPIRATORY: Negative for cough, wheezing +ONEIL CARDIOVASCULAR: Negative for chest pain, leg swelling and palpitations GI: Negative for abdominal discomfort, blood in stools or black stools and change in bowel habits : Negative for dysuria, frequency and incontinence MUSCULOSKELETAL: Negative for joint pain or swelling, back pain, and muscle pain. SKIN: Negative for lesions, rash, and itching. HEMATOLOGY/LYMPHOLOGY Negative for prolonged bleeding, bruising easily, and swollen nodes. NEURO: Negative for numbness or tingling of hands/feet. No weakness. PHYSICAL EXAMINATION: BP 132/54 Pulse 79 Temp 36.5 C (97.7 F) (Temporal) Resp 16 Ht 158 cm (5' 2.21 ) Wt 92.6 kg (204 lb 3.2 oz) SpO2 95% BMI 37.10 kg/m ECOG PERFORMANCE STATUS: 1- Restricted in physically strenuous activity. Carries out light duty. General: Alert and oriented, no distress, pleasant and cooperative. Heart: Regular, normal S1 and S2, no murmurs, rubs, or gallops Lungs: Clear to auscultation bilaterally Abdomen: Benign Extremities: Feet/ankles without edema, posterior tibial pulses full and symmetrical LABS: Glucose (mg/dL) Date Value 07/24/2023 159 Potassium (mmol/L) Date Value 07/24/2023 4.6 Sodium (mmol/L) Date Value 07/24/2023 145 Chloride (mmol/L) Date Value 07/24/2023 105 CO2 (mmol/L) Date Value 07/24/2023 25 Creatinine (mg/dL) Date Value 07/24/2023 1.71 BUN (mg/dL) Date Value 07/24/2023 42 Anion Gap (mmol/L) Date Value 07/24/2023 15 Calcium, Total (mg/dL) Date Value 07/24/2023 9.9 Protein, Total (g/dL) Date Value 07/24/2023 7.0 Albumin (g/dL) Date Value 07/24/2023 4.6 Bilirubin, Total (mg/dL) Date Value 07/24/2023 0.5 Alkaline Phosphatase (U/L) Date Value 07/24/2023 128 AST (U/L) Date Value 07/24/2023 24 ALT (U/L) Date Value 07/24/2023 20 WBC Date Value Ref Range Status 07/24/2023 6.64 3.70 - 11.00 k/uL Final RBC Date Value Ref Range Status 07/24/2023 4.15 3.90 - 5.20 m/uL Final Hemoglobin Date Value Ref Range Status 07/24/2023 11.6 11.5 - 15.5 g/dL Final Hematocrit Date Value Ref Range Status 07/24/2023 35.2 (L) 36.0 - 46.0 % Final MCV Date Value Ref Range Status 07/24/2023 84.8 80.0 - 100.0 fL Final MCH Date Value Ref Range Status 07/24/2023 28.0 26.0 - 34.0 pg Final MCHC Date Value Ref Range Status 07/24/2023 33.0 30.5 - 36.0 g/dL Final RDW-CV Date Value Ref Range Status 07/24/2023 16.0 (H) 11.5 - 15.0 % Final Platelet Count Date Value Ref Range Status 07/24/2023 162 150 - 400 k/uL Final MPV Date Value Ref Range Status 07/24/2023 9.6 9.0 - 12.7 fL Final Abs Neut Date Value Ref Range Status 07/24/2023 4.46 1.45 - 7.50 k/uL Final Lymphocytes % Date Value Ref Range Status 07/24/2023 23.3 % Final Abs Lymph Date Value Ref Range Status 07/24/2023 1.55 1.00 - 4.00 k/uL Final Monocytes % Date Value Ref Range Status 07/24/2023 5.9 % Final Abs [place] Date Value Ref Range Status 07/24/2023 0.39 <0.87 k/uL Final Eosinophils % Date Value Ref Range Status 07/24/2023 3.0 % Final Abs Eosin Date Value Ref Range Status 07/24/2023 0.20 <0.46 k/uL Final Basophils % Date Value Ref Range Status 07/24/2023 0.3 % Final Abs Baso Date Value Ref Range Status 07/24/2023 <0.03 <0.11 k/uL Final PATH: IMAGING: ASSESSMENT AND PLAN: Anh Tejeda is a 71 year old year old female past medical history significant for gastroesophageal reflux disease, hypertension, gout and type 2 diabetes with worsening anemia since January 2022. Reportedly patient has had normal iron stores in the past. She had a GI work-up in May 2022 which was negative. She has not tolerated oral iron in the past. Received Venofer x 3 doses (per insurance limitations) in October 2022. Today her hemoglobin remains stable. Her iron panel is pending and will follow up with this. Will plan to see her again in 3 months. Chronic kidney disease stage 3b--likely secondary to diabetes. Will forward labs to PCP for furtherwork up. She may benefit from nephrology consult. Daksha Bridges PA-C CC: Nisa Miranda CNP documented in this encounterOhio [facility]06-19-2023 Miscellaneous Notes* Telephone Encounter - Karlie Car RN - 05/04/2023 10:04 AM EDT Patient notified and verbalized understanding. No further questions. Karlie Car RN * Telephone Encounter - Karlie Car RN - 05/04/2023 10:03 AM EDT ----- Message from Daksha Bridges PA-C sent at 05/04/2023 7:40 AM EDT ----- Please call and inform the patient that her iron levels are good and she does not need iron. documented in this encounterOhio [facility]06-16-2023 NoteHNO ID: [id number] Author: Daksha Bridges PA-C Service: ? Author Type: Physician Tester Operator Helper Type: Progress Notes Filed: 05/01/2023 2:21 PM Note Text: PATIENT NAME: Anh Tejeda CLINIC NO.: [id number] ATTENDING PHYSICIAN: Delores Walker MD DATE OF SERVICE: May 01, 2023 (Elements copied from my note dated February 06, 2023, have been reviewed and updated where appropriate, and all reflect current assessment and medical decision making during today's encounter, May 01, 2023) CHIEF COMPLAINT: Follow up Diagnosis: NAINA Treatment: Venofer x 3 doses 10/2022 HPI: Anh returns for follow up. Since her last visit she did have admission to [facility] in February 2023 for syncope and UTI. She also had elevated BP a swell. She had a complete neuro and cardiac work up and has sabrina doing well She has had good energy levels. No sign of blood loss. She also did see Dr. Russell last week and he put her on magnesium and iron tablet. She reports that she did have a colonoscopy a few weeks ago at [facility]. I do not have any of these records. She said they removed a polyp. She is tolerating the oral iron currently and she is taking one a day 65 mg. Current Outpatient Medications Medication Sig ferrous sulfate 325 mg (65 mg iron) tablet Take 325 mg by mouth. MAGNESIUM OXIDE ORAL Take 1 tablet by mouth once daily. MEDIHONEY, HONEY, 100 % pste APPLY A THIN LAYER TWICE DAILY allopurinol (ZYLOPRIM) 100 mg tablet Take 100 mg by mouth once daily. ASCORBIC ACID, VITAMIN C, ORAL Take 500 mg by mouth once daily. aspirin (ASPIR-81 ORAL) Take 81 mg by mouth once daily. atenolol (TENORMIN) 50 mg tablet Take 50 mg by mouth once daily. atorvastatin (LIPITOR) 20 mg tablet Take 20 mg by mouth once daily. cholecalciferol (VITAMIN D3) 1,000 unit tab tablet Take 1,000 Units by mouth once daily. diclofenac, EC, (VOLTAREN) 75 mg EC tablet Take 75 mg by mouth once daily. furosemide (LASIX) 20 mg tablet Take 20 mg by mouth once daily. gabapentin (NEURONTIN) 300 mg capsule Take 300 mg by mouth daily at bedtime. lisinopril-hydroCHLOROthiazide (PRINZIDE,ZESTORETIC) 10-12.5 mg per tablet Take 1 tablet by mouth once daily. glimepiride (AMARYL) 2 mg tablet Take 2 mg by mouth daily with breakfast. metformin HCl (METFORMIN ORAL) Take 1,000 mg by mouth once daily. omeprazole (PRILOSEC) 20 mg capsule Take 20 mg by mouth once daily. rOPINIRole (REQUIP) 0.5 mg tablet Take 0.5 mg by mouth twice daily. Calcium Carb-Magnesium Carb 250-300 mg tab Take by mouth. (Patient not taking: Reported on 05/01/2023) No current facility-administered medications for this visit. ALLERGIES Allergen Reactions Acetaminophen-Codei* Other: See Comments pt states she is unwilling to try even plain tylenol after this experience even though she states she took tylenol prior to this and had no problems Tylenol #3 [Codeine] Other: See Comments Upset stomach PAST MEDICAL HISTORY Diagnosis Date Anemia Benign fundic gland polyps of stomach Diabetes mellitus (HCC) Diverticulosis GERD (gastroesophageal reflux disease) Hemorrhoids Hyperlipidemia Polyneuropathy Rectal polyp Restless leg syndrome PAST SURGICAL HISTORY Procedure Laterality Date COLONOSCOPY EGD W/O BRSH SPEC VARICIES INJ FAMILY HISTORY Problem Relation Age of Onset other (Congenital heart disease) Mother Lung Cancer Father Social History Tobacco Use Smoking status: Never Passive exposure: Past Smokeless tobacco: Never Substance Use Topics Alcohol use: Never Drug use: Not Currently REVIEW OF SYSTEMS GENERAL: No weight loss, malaise or fevers. No night sweats. +fatigue HEENT: Negative for headaches, No changes in hearing or vision, no nose bleeds or other nasal problems. RESPIRATORY: Negative for cough, wheezing +ONEIL CARDIOVASCULAR: Negative for chest pain, leg swelling and palpitations GI: Negative for abdominal discomfort, blood in stools or black stools and change in bowel habits : Negative for dysuria, frequency and incontinence MUSCULOSKELETAL: Negative for joint pain or swelling, back pain, and muscle pain. SKIN: Negative for lesions, rash, and itching. HEMATOLOGY/LYMPHOLOGY Negative for prolonged bleeding, bruising easily, and swollen nodes. NEURO: Negative for numbness or tingling of hands/feet. No weakness. PHYSICAL EXAMINATION: BP (!) 131/49 Pulse 82 Temp 36.4 ?C (97.6 ?F) (Temporal) Resp 18 Ht 158 cm (5' 2.21 ) Wt 93.6 kg (206 lb 6.4 oz) SpO2 95% BMI 37.50 kg/m? ECOG PERFORMANCE STATUS: 1- Restricted in physically strenuous activity. Carries out light duty. General: Alert and oriented, no distress, pleasant and cooperative. Heart: Regular, normal S1 and S2, no murmurs, rubs, or gallops Lungs: Clear to auscultation bilaterally Abdomen: Benign Extremities: Feet/ankles without edema, posterior tibial pulses full and symmetrical LABS: Glucose (mg/dL) Date Value 05/01/2023 149 Potassium (mmol/L) (more content not included)...[facility] 05-01-2023 History of Present illness Narrative* Daksha Bridges PA-C - 05/01/2023 2:00 PM EDT PATIENT NAME: Anh Tejeda [facility] NO.: [id number] ATTENDING PHYSICIAN: Delores Walker MD DATE OF SERVICE: May 01, 2023 (Elements copied from my note dated February 06, 2023, have been reviewed and updated where appropriate, and all reflect current assessment and medical decision making during today's encounter, April) CHIEF COMPLAINT: Follow up Diagnosis: NAINA Treatment: Venofer x 3 doses 10/2022 HPI: Anh returns for follow up. Since her last visit she did have admission to [facility] in February 2023for syncope and UTI. She also had elevated BP a swell. She had a complete neuro and cardiac work upand has sabrina doing well She has had good energy levels. No sign of blood loss. She also did see Dr. Russell last week and he put her on magnesium and iron tablet. She reports that she did have a colonoscopy a few weeks ago at [facility]. I do not have any of these records. She said they removed a polyp. Sheis tolerating the oral iron currently and she is taking one a day 65 mg. Current Outpatient Medications Medication Sig ferrous sulfate 325 mg (65 mg iron) tablet Take 325 mg by mouth. MAGNESIUM OXIDE ORAL Take 1 tablet by mouth once daily. MEDIHONEY, HONEY, 100 % pste APPLY A THIN LAYER TWICE DAILY allopurinol (ZYLOPRIM) 100 mg tablet Take 100 mg by mouth once daily. ASCORBIC ACID, VITAMIN C, ORAL Take 500 mg by mouth once daily. aspirin (ASPIR-81 ORAL) Take 81 mg by mouth once daily. atenolol (TENORMIN) 50 mg tablet Take 50 mg by mouth once daily. atorvastatin (LIPITOR) 20 mg tablet Take 20 mg by mouth once daily. cholecalciferol (VITAMIN D3) 1,000 unit tab tablet Take 1,000 Units by mouth once daily. diclofenac, EC, (VOLTAREN) 75 mg EC tablet Take 75 mg by mouth once daily. furosemide (LASIX) 20 mg tablet Take 20 mg by mouth once daily. gabapentin (NEURONTIN) 300 mg capsule Take 300 mg by mouth daily at bedtime. lisinopril-hydroCHLOROthiazide (PRINZIDE,ZESTORETIC) 10-12.5 mg per tablet Take 1 tablet by mouth once daily. glimepiride (AMARYL) 2 mg tablet Take 2 mg by mouth daily with breakfast. metformin HCl (METFORMIN ORAL) Take 1,000 mg by mouth once daily. omeprazole (PRILOSEC) 20 mg capsule Take 20 mg by mouth once daily. rOPINIRole (REQUIP) 0.5 mg tablet Take 0.5 mg by mouth twice daily. Calcium Carb-Magnesium Carb 250-300 mg tab Take by mouth. (Patient not taking: Reported on 05/01/2023) No current facility-administered medications for this visit. ALLERGIES Allergen Reactions Acetaminophen-Codei* Other: See Comments pt states she is unwilling to try even plain tylenol after this experience even though she states she took tylenol prior to this and had no problems Tylenol #3 [Codeine] Other: See Comments Upset stomach PAST MEDICAL HISTORY Diagnosis Date Anemia Benign fundic gland polyps of stomach Diabetes mellitus (HCC) Diverticulosis GERD (gastroesophageal reflux disease) Hemorrhoids Hyperlipidemia Polyneuropathy Rectal polyp Restless leg syndrome PAST SURGICAL HISTORY Procedure Laterality Date COLONOSCOPY EGD W/O BRSH SPEC VARICIES INJ FAMILY HISTORY Problem Relation Age of Onset other (Congenital heart disease) Mother Lung Cancer Father Social History Tobacco Use Smoking status: Never Passive exposure: Past Smokeless tobacco: Never Substance Use Topics Alcohol use: Never Drug use: Not Currently REVIEW OF SYSTEMS GENERAL: No weight loss, malaise or fevers. No night sweats. +fatigue HEENT: Negative for headaches, No changes in hearing or vision, no nose bleeds or other nasal problems. RESPIRATORY: Negative for cough, wheezing +ONEIL CARDIOVASCULAR: Negative for chest pain, leg swelling and palpitations GI: Negative for abdominal discomfort, blood in stools or black stools and change in bowel habits : Negative for dysuria, frequency and incontinence MUSCULOSKELETAL: Negative for joint pain or swelling, back pain, and muscle pain. SKIN: Negative for lesions, rash, and itching. HEMATOLOGY/LYMPHOLOGY Negative for prolonged bleeding, bruising easily, and swollen nodes. NEURO: Negative for numbness or tingling of hands/feet. No weakness. PHYSICAL EXAMINATION: BP (!) 131/49 Pulse 82 Temp 36.4 C (97.6 F) (Temporal) Resp 18 Ht 158 cm (5' 2.21 ) Wt 93.6 kg (206 lb 6.4 oz) SpO2 95% BMI 37.50 kg/m ECOG PERFORMANCE STATUS: 1- Restricted in physically strenuous activity. Carries out light duty. General: Alert and oriented, no distress, pleasant and cooperative. Heart: Regular, normal S1 and S2, no murmurs, rubs, or gallops Lungs: Clear to auscultation bilaterally Abdomen: Benign Extremities: Feet/ankles without edema, posterior tibial pulses full and symmetrical LABS: Glucose (mg/dL) Date Value 05/01/2023 149 Potassium (mmol/L) Date Value 05/01/2023 4.3 Sodium (mmol/L) Date Value 05/01/2023 142 Chloride (mmol/L) Date Value 05/01/2023 96 CO2 (mmol/L) Date Value 05/01/2023 31 Creatinine (mg/dL) Date Value 05/01/2023 1.53 BUN (mg/dL) Date Value 05/01/2023 42 Anion Gap (mmol/L) Date Value 05/01/2023 15 Calcium, Total (mg/dL) Date Value 05/01/2023 9.5 Protein, Total (g/dL) Date Value 05/01/2023 7.0 Albumin (g/dL) Date Value 05/01/2023 4.6 Bilirubin, Total (mg/dL) Date Value 05/01/2023 0.6 Alkaline Phosphatase (U/L) Date Value 05/01/2023 114 AST (U/L) Date Value 05/01/2023 25 ALT (U/L) Date Value 05/01/2023 20 WBC Date Value Ref Range Status 05/01/2023 7.34 3.70 - 11.00 k/uL Final RBC Date Value Ref Range Status 05/01/2023 4.11 3.90 - 5.20 m/uL Final Hemoglobin Date Value Ref Range Status 05/01/2023 11.7 11.5 - 15.5 g/dL Final Hematocrit Date Value Ref Range Status 05/01/2023 35.7 (L) 36.0 - 46.0 % Final MCV Date Value Ref Range Status 05/01/2023 86.9 80.0 - 100.0 fL Final MCH Date Value Ref Range Status 05/01/2023 28.5 26.0 - 34.0 pg Final MCHC Date Value Ref Range Status 05/01/2023 32.8 30.5 - 36.0 g/dL Final RDW-CV Date Value Ref Range Status 05/01/2023 15.7 (H) 11.5 - 15.0 % Final Platelet Count Date Value Ref Range Status 05/01/2023 182 150 - 400 k/uL Final MPV Date Value Ref Range Status 05/01/2023 9.2 9.0 - 12.7 fL Final Abs Neut Date Value Ref Range Status 05/01/2023 5.12 1.45 - 7.50 k/uL Final Lymphocytes % Date Value Ref Range Status 05/01/2023 22.3 % Final Abs Lymph Date Value Ref Range Status 05/01/2023 1.64 1.00 - 4.00 k/uL Final Monocytes % Date Value Ref Range Status 05/01/2023 6.0 % Final Abs [place] Date Value Ref Range Status 05/01/2023 0.44 <0.87 k/uL Final Eosinophils % Date Value Ref Range Status 05/01/2023 1.5 % Final Abs Eosin Date Value Ref Range Status 05/01/2023 0.11 <0.46 k/uL Final Basophils % Date Value Ref Range Status 05/01/2023 0.1 % Final Abs Baso Date Value Ref Range Status 05/01/2023 <0.03 <0.11 k/uL Final PATH: IMAGING: ASSESSMENT AND PLAN: Anh Tejeda is a 71 year old year old female past medical history significant for gastroesophageal reflux disease, hypertension, gout and type 2 diabetes with worsening anemia since January 2022. Reportedly patient has had normal iron stores in the past. She had a GI work-up in May 2022 which was negative. She has not tolerated oral iron in the past. Received Venofer x 3 doses (per insurance limitations) in October 2022. Hemoglobin stable. May have some component of anemia from CKD. Will follow up on iron levels and see her in 3 months. Will request records from [facility] colonoscopy as well. Chronic kidney disease stage 3b--likely secondary to diabetes. Referral to nephrology recommended and she wishes to discuss to PCP Daksha Bridges PA-C CC: Nisa Miranda, JENY [facility] Consult note Author Krissy Easton [facility] March 12, 2023 5:33pm Note Date/Time March 12, 2023 11: 16am [facility] [address] [place] [address] Neurology Consult Note Signed Patient: Anh Tejeda MR#: [id number] : 1950 Acct:[id number] Age/Sex: 72 / F Adm Date: 3 Loc: Room: [address] [place] [address] Type: ADM IN Attending Dr: Kimberly Arteaga MD Copies to: DO Georgina Rubio, FERDINAND-C MD Krissy Blunt,~ HPI Consult Date: 03/12/23 Substation Inspector: ISAMAR Amato with Dr. Easton Reason for consult: Syncope, slurred speech Consult Narrative HPI: Patient is a 72-year-old female with medical history of arthritis, COVID-19, diabetes, gout, chronic anemia, fibromyalgia, hyperlipidemia, and hypertension. She also had skin cancer on her neck and forehead. Patient and family report a history of recurrent syncope associated with emotional times, illness, and stress. Her last syncopal episode prior to this was last fall. She is being seen in neurological consultation at the request of the hospital service after presenting with syncopal episodes and slurred speech. She states she went to her brothers to help him do something although she did not feel well. He reports he had talked her approximately 15 minutes prior and she seemed like hernormal self. She drove herself to her brother's house. Patient was visiting with her brother and when she went to get up after approximately 30 minutes of sitting and she had difficulty standing up and then lost consciousness. Her brother states when she got there she did not look well. She looked flushed in her face. She had difficulty getting out of the car due to weakness. She states she felt like all of her energy drained out of her and she went limp. Her brother caught her and put her back onto the chair. She was out of it just for a few seconds. She was so weak she could not even hold her head up. There was no tonic-clonic activity, incontinence, or tongue trauma reported. She was noted to have slurred speech and gait instability so her brother brought her to the emergency room at the recommendation of her primary care physician. On the way into the emergency room she had a second syncopal episode just like the first one. Stroke alert was called. NIH was 1. CT scan of the head and CT of the head neck were nonacute. She recently started magnesium supplementation. In the emergency room her blood pressure was 213/182. Her brother states they checked her blood pressure and pulse ox at home and her blood pressure was in the 140s over 90s. Her pulse ox was normal. In the emergency room hemoglobin, hematocrit, and platelets were low. Platelets were 117. Hemoglobin at baselinesince May of last year. She was found to have urinary tract infection with positive cultures and acute kidney injury. She does report some paresthesias inher right hand and right lower extremity which is chronic but more noticeable. Brother is in the room. He states that she knew that she as going to have an event and just went out. She came to. She had a hard time talking after the event. The color of her face was dark like she was baking in the sun . He knew that something was wrong. She had the second event when trying to get out of the car to get int ED. She feels 100% better this afternoon compared to yesterday. She did walk with therapy. She has been able to walk to the restroom. Review of Systems Constitutional Constitutional: Denies chills, Reports fatigue and Denies fever(s) Eyes Eyes: Denies blurry vision, Denies diplopia and Denies loss of vision ENT Ears, Nose, Mouth, and Throat: Denies nasal congestion and Denies nasal discharge Cardiovascular Cardiovascular: Denies chest pain and Denies palpitations Respiratory Respiratory: Denies cough and Denies dyspnea Gastrointestinal Gastrointestinal: Denies change in bowel habits, Denies nausea and Denies vomiting Genitourinary Genitourinary: Denies dysuria Musculoskeletal Musculoskeletal: Reports back pain, Reports muscle weakness and Reports radiating pain into limb Integumentary/Breasts Skin/Breast: Denies pruritus and Denies rash Neurologic Neurologic: Reports as per HPI, Denies abnormal speech, Denies dizziness, Reports localized weakness (Right lower extremity, chronic), Denies headache(s),Denies memory loss, Reports paresthesias (Chronic) and Denies seizure-like activity Psychiatric Psychiatric: Denies confusion and Denies memory loss PMFSH Vaccinated for COVID-19?: No Medical History (Updated 03/11/23 @ 18:53 by Kimberly Arteaga MD) Arthritis COVID-19 Diabetes Gout History of anemia History of bronchitis History of cataract marie eyes History of fibromyalgia History of measles as a child History of mumps as a child History of pneumonia History of psychiatric care History of tonsillitis Hyperlipidemia Hypertension Skin cancer post. neck and forehead Surgical History History of arthroscopy of right knee History of cholecystectomy History of colonoscopy History of hysterectomy History of surgical procedure on eye proper using laser marie eyes Family History Father Cancer Mother Diabetes Congestive heart failure COPD (chronic obstructive pulmonary disease) Cancer CVA (cerebral vascular accident) Brother Diabetes Congestive heart failure Brother Multiple sclerosis Social History Smoking Status: Never smoker Substance Use Type: None Meds Medications and Allergies Allergies codeine Adverse Reaction (Verified 12/29/22 13:45) Dizziness Home Medications atenolol 50 mg tablet 50 mg PO DAILY 12/26/17 [History Confirmed 03/11/23] atorvastatin 20 mg tablet 20 mg PO DAILY 12/26/17 [History Confirmed 03/11/23] gabapentin 300 mg capsule 900 mg PO HS 12/26/17 [History Confirmed 03/11/23] glimepiride 2 mg tablet 2 mg PO BID 12/26/17 [History Confirmed 03/11/23] lisinopril 20 mg-hydrochlorothiazide 12.5 mg tablet 1 tab PO DAILY 02/10/18 [History Confirmed 03/11/23] metformin 1,000 mg tablet 1,000 mg PO BID 12/26/17 [History Confirmed 03/11/23] omeprazole magnesium 20 mg tablet,delayed release (Prilosec OTC) 20 mg PO DAILY 12/26/17 [History Confirmed 03/11/23] allopurinol 100 mg tablet 100 mg PO BID 12/29/22 [History Confirmed 03/11/23] diclofenac sodium 75 mg tablet,delayed release 75 mg PO BID 12/29/22 [History Confirmed 03/11/23] furosemide 20 mg tablet 20 mg PO QAM 12/29/22 [History Confirmed 03/11/23] ropinirole 2 mg tablet 2 mg PO QHS 12/29/22 [History Confirmed 03/11/23] ascorbic acid (vitamin C) 500 mg tablet (Vitamin C) 500 mg PO DAILY 03/11/23 [History Confirmed 03/11/23] aspirin 81 mg tablet 81 mg PO DAILY 03/11/23 [History Confirmed 03/11/23] cyanocobalamin (vitamin B-12) 50 mcg tablet (Vitamin B-12) 50 mcg PO DAILY 03/11/23 [History Confirmed 03/11/23] ergocalciferol (vitamin D2) 200 mcg/mL (8,000 unit/mL) oral drops 200 mcg PO DAILY 03/11/23 [History Confirmed 03/11/23] Exam Physical Exam Vital Signs: Temp Pulse Resp BP Pulse Ox O2 Del Method 97.6 F 78 18 160/70 H 97 Room Air 03/12/23 05:58 03/12/23 05:58 03/12/23 05:58 03/12/23 05:58 03/12/23 05:58 03/12/23 05:58 Narrative: GENERAL EXAM: * Constitutional - Patient appears well nourished and well groomed * Patient is alert and oriented x3. * Apical is regular rate and rhythm. No murmur was appreciated. No edema noted. Pulses are normal * Lung sounds are clear to auscultation * Abdomen is soft with normal bowel sounds * Neck is supple without carotid bruit * Ophthalmoscopic exam deferred. No injection or drainage noted. NEURO EXAM: * Attention span/concentration normal * Speech is clear and fluent * Cranial nerve II. Vision is intact. STACY * Cranial nerve III, IV and . Extraocular muscles are intact. No nystagmus is appreciated * Cranial nerve V and VII. No facial asymmetry is appreciated. Temperature and pinprick is equal bilaterally * Cranial nerve VIII hearing is intact * Cranial nerve IX and X speech is clear fluent. Palate elevates symmetrically * Cranial nerve XI head turn side to side full range of motion. Shoulder shrug is equal bilaterally * Cranial nerve XII tongue is midline full range of motion MOTOR EXAM: * Strength is 5/5 throughout. She has giveaway weakness in the right lower extremity due to pain in her hip and back. No pronator drift was appreciated * Muscle tone and bulk are normal * Gait not assessed SENSORY EXAM: * Temperature, pinprick, vibration are intact in all 4 extremities. She has decreased vibratory sense at the great toe bilaterally. Proprioception is absent * She does have some reproducible paresthesias in her right hand with Tinel's test and ulnar nerve compression CEREBELLAR EXAM: * [id number] and alternating movements are intact and normal in bilateral upper extremities * [id number] and alternating movements are intact and normal in lower extremities. She has difficulty with [id number] using the right lower extremity due to pain but no ataxia noted REFLEX EXAM: * 2/4 throughout Neuro Other: Attending exam Patient is sitting in the chair she is alert and oriented x3 and not in any true distress Speech was clear and fluent Cranial nerves II through XII pupils are equal reactive to light and accommodation bilaterally extraocular muscle were intact bilaterally visual navarrete are full there is no nystagmus there is no facial asymmetry tongue is midline good range of motion palate rises symmetrically uvula is midline there are no facial sensory deficit she has good bilateral shoulder shrug Pronator drift is negative Coordination shows no signs of dysmetria with good rapid alternating movements [id number] Tone is physiologic Deep tendon reflexes are 2 out of 4, 1/4 bilateral patella. Decreased in a stocking distribution all else intact Motor examination is 5 out of 5 Babinski is negative Language skills are intact Memory is intact Fund of knowledge is within normal limits Results Laboratory Findings 03/12/23 05:55 03/12/23 08:00 Diagnostic Findings Imaging/Impressions: ITS Impressions Chest X-Ray 03/11/23 15:39 IMPRESSION: No acute cardiopulmonary pathology. Impression dictated by: Riki Garnica M.D.03/11/2023 4:19 PM Dictation Location: [facility] 03/11/23 15:39 IMPRESSION: No acute intracranial pathology. Mild chronic microvascular ischemic changes are noted. Findings were discussed with Dr. Rose at 3:50 PM on 03/11/2023 Impression dictated by: Riki Garnica M.D.03/11/2023 3:55 PM Dictation Location: [facility] Head CTA 03/11/23 15:41 IMPRESSION: No evidence of focal stenosis, aneurysmal dilatation, dissection or occlusion. Impression dictated by: Riki Garnica M.D.03/11/2023 4:03 PM Dictation Location: [facility] Brain MRI 03/11/23 18:56 IMPRESSION: No acute intracranial pathology. There is diffuse age-related cortical atrophy with chronic microvascular ischemic change. Impression dictated by: Riki Garnica M.D.03/12/2023 8:58 AM Dictation Location: [facility] Therapy Recommendations Therapy Recommendations: ST Recommendations Liquid Consistency Thin Liquids Recommendation Solid Consistency Regular Solids Recommendations Meat Consistency Whole Meats Recommendations Medication Administration Whole Pills,Give Pills with Water Assessment/Plan (1) Syncope: Code(s): R55 - Syncope and collapse Status: Acute Plan Patient is a 72-year-old female with stroke risk factors including age, diabetes, hypertension, hyperlipidemia, and COVID-19. She presented to the emergency room with syncopal episode and slurred speech. On the way into the emergency room she had a second syncopal episode. She has a history of syncopalepisodes associated with stress, illness, and emotion. Her last syncopal episode was last Fall. CT scan of the head was nonacute. CTA of head and neck was negative for occlusive disease that would contribute to cerebral hypertension secondary to intracranial extracranial stenosis. MRI of the brain is nonacute ruling out ischemia. Recurrent syncope is a concern for possible seizure. She was very hypertensive upon arrival to the emergency room with blood pressure of 213/182. Hypertensive crisis possibly contributing to her symptoms. She does have decreased sensation in distal lower extremities bilaterally and absent proprioception which may be contributing to dysautonomia. Another consideration would be cardiac arrhythmia due to recurrent syncope as described above. 1. CT scan of brain nonacute. MRI scan of brain is nonacute as well. 2. CTA of the head neck negative for occlusive disease 3. Echocardiogram is pending 4. Orthostatic vital signs 5. Hemoglobin A1c on 02/05/2023 was 7.6 6. LFTs in January were normal 7. Acute kidney injury with urinary tract infection. Urine culture shows E. coli. On antibiotics 8. PT/OT/ST 9. LDL 51. She is on atorvastatin 10. She is on aspirin at baseline 11. Fall precautions 12. Cardiac event monitor at discharge 13. Consider tilt table testing 14. Can do EMG of right upper and right lower extremity for chronic paresthesias. She does have signs and symptoms of a radiculopathy as well as ulnar neuropathy and carpal tunnel syndrome 15. Further recommendations to follow based on above evaluation and patient's clinical course Thank you for the consult Patient was personally seen by me on the day of the encounter. I performed the history and performed the simon elements of the physical examination. I formulated the plan of care and confirmed this with the Fellow/Nurse Practitioner/Resident/District Court Judge/Physician Tester Operator Helper as noted below. 72 year old female with recurrent syncope who had another event. This appears ramy most related to a orthostatic hypotension with autonomic dysfunction on top of multiple BP meds with reactive hypertension. Her MRI was negative for any sort of stroke her CTA was negative for any sort of occlusive disease. Her EEG did not show any signs of seizure activity. Unfortunately I suspect she is going to have labile blood pressures due to the need of the blood pressure medications and the autonomic dysfunction associated with her peripheral neuropathy. She has had positive orthostatic blood pressures. Currently doing well and feels 100% better than she did yesterday. At this time I have no further neurologic work-up. She needs to monitor her blood pressure. She needs to get up slowly. Unfortunately if she needs all the other blood pressure medicines then we are rather stuck in treatment however she continues to have events and may need to decrease or withdraw some of the blood pressure medication. He is to keep her diabetes under control. She was found to have a UTI which could be contributing and we will leave the treatment up to the primary service. Plan MRI of the brain was nonacute EEG showed no signs of seizure activity. Antibiotics as needed for UTI Get up slowly Sit down if she feels faint in any way Take blood pressure in the middle of the event if able by family Patient will follow-up in the office This was all discussed with the patient and brother in great detail all questions were answered they agree with the treatment plan No further neurologic work-up is needed inpatient and she can be DC'd whenever cleared by the other services Documented By: Krissy Easton DO 03/12/23 1106 Signed By: <Electronically signed by DO Krissy Easton> 03/12/23 1733 <Electronically signed by DENISE Prieto> 03/12/23 1[address] [facility] Work Phone: [phone] 905-410704-27-2023 Progress note Author Kimberly Arteaga [facility] March 12, 2023 4:35pm Note Date/Time March 12, 2023 4:3 2pm [facility] [address] [place] [address] Hospitalist Progress Note Signed Patient: Anh Tejeda MR#: [id number] : 1950 Acct:[id number] Age/Sex: 72 / F Adm Date: 3 Loc: Room: [address] [place] [address] Type: ADM IN Attending Dr: Kimberly Arteaga MD Copies to: ~ Date of Service: 03/12/2023 Subjective Subjective Narrative: Patient examined at bedside currently complaining of back pain along with numbness on the right foot. She is also complaining of numbness in the right hand she has been there for a while in the region of ulnar nerve suggesting carpal tunnel syndrome. 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 She has been told to have sciatica on the right and thinks it has been flared up while in the hospital. Blood pressures improved since admission. Exam Physical Exam Vital Signs: Temp Pulse Resp BP Pulse Ox O2 Del Method 97.5 F L 79 20 150/73 H 97 Room Air 03/12/23 15:08 03/12/23 15:08 03/12/23 15:08 03/12/23 15:03/12/23 15:08 03/12/23 15:55 Const General: cooperative Orientation: alert, awake and oriented x3 Resp Effort & Inspection: normal respiratory effort and able to speak in complete sentences Auscultation: no rales, no rhonchi and no wheezes Cardio Rate: regular rate Rhythm: regular rhythm Heart Sounds: S1 normal and S2 normal GI Palpation: soft, not firm, no guarding and nontender Neuro General: patient alert, patient awake, patient oriented x3, moves all extremities and no focal motor deficits Cranial Nerves: CN's II-XII intact bilaterally Cognition: normal cognition Speech: speech normal Motor: muscle tone normal throughout and strength 5/5 throughout Other: Numbness on the right hand involving third fourth and fifth digit. Extrem General: no clubbing, cyanosis or edema and no calf tenderness Objective Lab Results 03/12/23 05:55 03/12/23 08:00 Microbiology Results Microbiology 03/11/23 16:48 Clean Void Midstream Urine Culture - Preliminary Escherichia coli Meds Allergies and Active Meds Allergies codeine Adverse Reaction (Verified 12/29/22 13:45) Dizziness Active Meds: Active Medications Generic Name Dose Route Start Last Admin Trade Name Freq PRN Reason Stop Dose Admin Acetaminophen 650 mg 03/11/23 18:56 Acetaminophen 325 Mg Tablet PO 03/10/24 18:55 Q6HR PRN Pain Scale 1 - 3 or fever Allopurinol 100 mg 03/11/23 21:00 03/12/23 08:55 Allopurinol 100 Mg Tablet PO 03/10/24 20:59 100 mg BID VALDEZ Administration Aspirin 81 mg 03/12/23 09:00 03/12/23 08:55 Aspirin 81 Mg Tablet.Dr PO 03/11/24 08:59 81 mg DAILY VALDEZ Administration Atorvastatin Calcium 20 mg 03/12/23 09:00 03/12/23 08:55 Atorvastatin 20 Mg Tablet PO 03/11/24 08:59 20 mg DAILY VALDEZ Administration Dextrose 0 gm 03/12/23 12:13 Dextrose 50% In Water 25 Gm/50 Ml Syringe IV-PUSH 03/11/24 12:12 PRN PRN Hypoglycemia Glucose 0 gm 03/12/23 12:13 Dextrose 40% Gel 15 Gm Tube PO 03/11/24 12:12 PRN PRN Hypoglycemia Heparin Sodium (Porcine) 5,000 unit 03/11/23 22:00 03/12/23 15:05 Heparin 5,000 Unit/Ml Vial SUBCUT 03/10/24 21:59 5,000 unit Q8HR VALDEZ Administration Hydralazine HCl 10 mg 03/11/23 18:56 Hydralazine 20 Mg/Ml Vial IV-PUSH 03/10/24 18:55 Q4H PRN Hypertension Ceftriaxone Sodium 1 gm in 50 mls @ 100 mls/hr 03/12/23 15:30 03/12/23 16:20 Rocephin IV 100 mls/hr Q24H VALDEZ Administration Insulin Aspart 0 units 03/12/23 17:00 03/12/23 16:20 Insulin Aspart 300 Units/3 Ml Insuln.Pen SUBCUT 03/11/24 16:59 Not Given TID.WM.HS VALDEZ Protocol Metoprolol Tartrate 50 mg 03/12/23 09:00 03/12/23 08:55 Metoprolol Tartrate 50 Mg Tablet PO 03/11/24 08:59 50 mg BID VALDEZ Administration Pantoprazole Sodium 40 mg 03/12/23 09:00 03/12/23 08:55 Pantoprazole 40 Mg Tablet.Dr PO 03/11/24 08:59 40 mg DAILY VALDEZ Administration Ropinirole HCl 2 mg 03/11/23 22:00 03/11/23 21:41 Ropinirole 2 Mg Tablet PO 03/10/24 21:59 2 mg QHS VALDEZ Administration Sodium Chloride 10 ml 03/11/23 21:32 Sodium Chloride 0.9 % 10 Ml Vial.Pf INJECTION 03/10/24 21:31 Q4H PRN Ativan dilution A&P - Hospitalist Assessment/Plan (1) Slurred speech: (2) Paresthesias in right hand: (3) Syncope: (4) Chronic kidney disease, stage III (moderate): (5) Diabetes: (6) Hypertensive urgency: (7) Acute UTI: Plan Speech has improved and back to baseline. No event monitor on telemetry with echocardiogram showing preserved ejection fraction and mild diastolic dysfunction. No LV thrombus, vegetation or mass seen. No septal defect as well. MRI brain neck negative for acute abnormality. Recent A1c level of 7.6 with LDL of 51. Patient complaining of significant pain and discomfort due to sciatica pain which is likely contributing to her symptoms and fall. Neurology has been consulted and will follow the recommendation regarding further work-up. Urine culture growing >100,000 colonies of E. coli likely contributing to her symptoms and has been started on ceftriaxone until final sensitivities are back to make sure we are not dealing with resistant organisms. Continue aspirin, statin, allopurinol, insulin with sliding scale coverage and beta-mervat. Continue to hold metformin given contrast exposure and given 1 dose of basal insulin for hyperglycemia. Subcutaneous heparin for DVT prophylaxis. Creatinine is slightly increased and need to be monitored closely. Continue to hold Lasix, lisinopril and hydrochlorothiazide. She did receive IV contrast yesterday and need to be monitored closely for risk of contrast-induced nephropathy. Patient requires more than 2 midnight of hospital stay due to concern for developing contrast-induced nephropathy in view of her chronic kidney disease with recent contrast exposure. She also complained generalized weakness and wasadmitted for stroke work-up. Noted to have acute UTI with pending final cultureresults. Continue to monitor blood pressure and adjust given medication depending upon her creatinine clearance is expecting prolonged clearance. Documented By: Kimberly Arteaga MD 03/12/23 162 Signed By: <Electronically signed by Kimberly Arteaga MD> 03/12/23 [address] [facility] Work Phone: [phone] History and physical note Author Kimberly Arteaga [facility] March 11, 2023 7:01pm Note Date/Time March 11, 2023 6:4 6pm [facility] [address] [place] [address] Hospitalist H&P Signed with Addenda Patient: Anh Tejeda MR#: [id number] : 1950 Acct:[id number] Age/Sex: 72 / F Adm Date: 3 Loc: Room: [address] [place] [address] Type: ADM IN Attending Dr: Kimberly Arteaga MD Copies to: Vinay Matta,DO Kimberly Arteaga MD~ ADDENDUM1 Given the concern for acute stroke I will also give her a loading dose of Plavix. Addendum Documented By: Kimberly Arteaga MD 03/11/231899 Addendum Signed By: <Electronically signed by Kimberly Arteaga MD> 03/11/231899 HPI DATE OF EXAMINATION: 03/11/23 CHIEF COMPLAINT: Syncopal episode with slurring of speech. HISTORY OF PRESENT ILLNESS: Patient is a pleasant 72-year-old female with history of diabetes mellitus type 2, hypertension, hyperlipidemia, chronic kidney disease stage III and other medical comorbidities. Patient brought to the emergency room after having a syncopal episode and noted to have slurred speech. She was in her normal state of health and was talking to her brother earlier today. She came to his place and was having difficulty getting up and while trying to stand up she passed out. Afterward her brother noted her to have slurring of speech and unsteady gait. Brought her to the emergency room and while trying to take her out of thecar she had another syncopal episode. In the emergency room stroke alert was called with NIH stroke scale of 1. CTA head and neck was negative for critical stenosis. No acute abnormality seen on the lab. During my evaluation her speech is back to normal with no focal deficit noted on examination. She did mention recently started on magnesium supplement which made her feel sick and she stopped taking her magnesium. Later she was found to have low magnesium andwas restarted and again she developed upset stomach and made her feel sick. Denies prior history of stroke but does have multiple risk factors. She denies fever, chills, recent infection, cough, chest pain, shortness of breath, nausea,vomiting or diarrhea. She does take Lasix with increased urinary frequency. Inthe ER noted to have elevated blood pressure of 213 systolic which has improved to 182 systolic. Review of Systems Review of Systems All other systems reviewed & are negative unless noted below or in HPI [facility] Vaccinated for COVID-19?: Yes Medical History (Updated 03/11/23 @ 18:53 by Kimberly Arteaga MD) Arthritis COVID-19 Diabetes Gout History of anemia History of bronchitis History of cataract marie eyes History of fibromyalgia History of measles as a child History of mumps as a child History of pneumonia History of psychiatric care History of tonsillitis Hyperlipidemia Hypertension Skin cancer post. neck and forehead Surgical History History of arthroscopy of right knee History of cholecystectomy History of colonoscopy History of hysterectomy History of surgical procedure on eye proper using laser marie eyes Family History Father Cancer Mother Diabetes Congestive heart failure COPD (chronic obstructive pulmonary disease) Cancer CVA (cerebral vascular accident) Brother Diabetes Congestive heart failure Brother Multiple sclerosis Social History Smoking Status: Never smoker Substance Use Type: None Meds Medications and Allergies Allergies codeine Adverse Reaction (Verified 12/29/22 13:45) Dizziness Home Medications atenolol 50 mg tablet 50 mg PO DAILY 12/26/17 [History Confirmed 03/11/23] atorvastatin 20 mg tablet 20 mg PO DAILY 12/26/17 [History Confirmed 03/11/23] gabapentin 300 mg capsule 900 mg PO HS 12/26/17 [History Confirmed 03/11/23] glimepiride 2 mg tablet 2 mg PO BID 12/26/17 [History Confirmed 03/11/23] lisinopril 20 mg-hydrochlorothiazide 12.5 mg tablet 1 tab PO DAILY 12/26/17 [History Confirmed 03/11/23] metformin 1,000 mg tablet 1,000 mg PO BID 12/26/17 [History Confirmed 03/11/23] omeprazole magnesium 20 mg tablet,delayed release (Prilosec OTC) 20 mg PO DAILY 12/26/17 [History Confirmed 03/11/23] allopurinol 100 mg tablet 100 mg PO BID 12/29/22 [History Confirmed 03/11/23] diclofenac sodium 75 mg tablet,delayed release 75 mg PO BID 12/29/22 [History Confirmed 03/11/23] furosemide 20 mg tablet 20 mg PO QAM 12/29/22 [History Confirmed 03/11/23] ropinirole 2 mg tablet 2 mg PO QHS 12/29/22 [History Confirmed 03/11/23] ascorbic acid (vitamin C) 500 mg tablet (Vitamin C) 500 mg PO DAILY 03/11/23 [History Confirmed 03/11/23] aspirin 81 mg tablet 81 mg PO DAILY 03/11/23 [History Confirmed 03/11/23] Exam Physical Exam Vital Signs: Temp Pulse Resp BP Pulse Ox O2 Del Method 97.5 F L 69 18 182/72 H 98 Room Air 03/11/23 15:38 03/11/23 18:00 03/11/23 18:00 03/11/23 18:00 03/11/23 18:00 03/11/23 18:00 Const General: cooperative Nutritional Appearance: obese Orientation: alert, awake and oriented x3 HEENT Head: normal to inspection, no palpable skull fracture, normocephalic and atraumatic Eyes Pupils: PERRL EOM: EOM intact bilaterally and No nystagmus Neck Neck: normal visual inspection and full ROM Resp Effort & Inspection: normal respiratory effort and able to speak in complete sentences Auscultation: no rales, no rhonchi and no wheezes Cardio Rate: regular rate Rhythm: regular rhythm Heart Sounds: S1 normal and S2 normal GI Palpation: soft, not firm, no guarding and nontender Musc Cervical Spine: normal cervical lordosis and cervical ROM normal Neuro General: patient alert, patient awake, patient oriented x3, moves all extremities and no focal motor deficits Cranial Nerves: CN's II-XII intact bilaterally Cognition: normal cognition Speech: speech normal Motor: muscle tone normal throughout and strength 5/5 throughout Extrem General: no calf tenderness Psych Appearance: grossly normal Results Lab Results Labs: Laboratory Last Values Corrected WBC 5.7 X10E3/uL (3.8-11.6) 03/11/23 15:41 Uncorrected WBC Count 5.7 x10E3/uL (3.8-11.6) 03/11/23 15:41 RBC 3.75 X10E6/uL (3.60-5.00) 03/11/23 15:41 Hgb 10.7 g/dL (11.8-15.4) L 03/11/23 15:41 Hct 32.0 % (34.0-46.4) L 03/11/23 15:41 MCV 85.5 fl (80-100) 03/11/23 15:41 MCH 28.6 pg (24.7-34.3) 03/11/23 15:41 MCHC 33.5 g/dL (32.0-35.0) 03/11/23 15:41 RDW 16.8 % (11.9-15.3) H 03/11/23 15:41 Plt Count 145 x10E3/uL (150-450) L 03/11/23 15:41 MPV 7.5 fl (6.3-10.7) 03/11/23 15:41 Neut % (Auto) 67.9 % (.) 03/11/23 15:41 Lymph % (Auto) 24.2 % (.) 03/11/23 15:41 [place] % (Auto) 6.1 % (.) 03/11/23 15:41 Eos % (Auto) 1.4 % (.) 03/11/23 15:41 Baso % (Auto) 0.4 % (.) 03/11/23 15:41 Nucleat RBC Rel Count 0.1 /100 WBC (0-0.5) 03/11/23 15:41 Neut # (Auto) 3.9 x10E3/uL (1.8-7.7) 03/11/23 15:41 Lymph # (Auto) 1.4 x10E3/uL (1.00-4.8) 03/11/23 15:41 [place] # (Auto) 0.3 x10E3/uL (0.0-0.8) 03/11/23 15:41 Eos # (Auto) 0.1 x10E3/uL (0.0-0.45) 03/11/23 15:41 Baso # (Auto) 0.0 x10E3/uL (0.0-0.2) 03/11/23 15:41 Monocyte Dist Width 17.19 % (0.00-20.00) 03/11/23 15:41 PT 13.5 Seconds (9.0-12.9) H 03/11/23 15:41 INR 1.2 03/11/23 15:41 APTT 33.9 Seconds (25.1-36.5) 03/11/23 15:41 PHA Creatinine Clear 33.67 03/11/23 15:41 Sodium 142 mmol/L (136-145) 03/11/23 15:41 Potassium 4.3 mmol/L (3.5-5.1) 03/11/23 15:41 Chloride 104 mmol/L (98-107) 03/11/23 15:41 Carbon Dioxide 26.9 mmol/L (21.0-31.0) 03/11/23 15:41 Anion Gap 15.4 mEq/L (6.0-15.0) H 03/11/23 15:41 BUN 37 mg/dL (7-25) H 03/11/23 15:41 Creatinine 1.61 mg/dL (0.60-1.20) H 03/11/23 15:41 POC Creatinine 1.7 mg/dl (0.6-1.3) H 03/11/23 15:42 Est GFR (CKD-EPI) 33.383 mL/Min 03/11/23 15:41 Glucose 164 mg/dL (70-100) H 03/11/23 15:41 POC Glucose 193 mg/dl 03/11/23 15:38 POC Glucose Comment Glu2: cleaned meter 03/11/23 15:38 Calcium 8.3 mg/dL (8.6-10.3) L 03/11/23 15:41 Total Creatine Kinase 64 U/L (30-223) 03/11/23 15:41 Troponin I High Sens 3.7 pg/mL (0.0-15.0) 03/11/23 15:41 Urine Color Yellow (Yellow) 03/11/23 16:48 Urine Appearance Clear (Clear) 03/11/23 16:48 Urine pH 5.0 (5.0-9.0) 03/11/23 16:48 Ur Specific [place] 1.020 (1.001-1.030) 03/11/23 16:48 Urine Protein Negative mg/dL (Negative) 03/11/23 16:48 Urine Glucose (UA) Normal mg/dL (Normal) 03/11/23 16:48 Urine Ketones Negative (Negative) 03/11/23 16:48 Urine Occult Blood Negative (Negative) 03/11/23 16:48 Urine Nitrite Negative (Negative) 03/11/23 16:48 Urine Bilirubin Negative (Negative) 03/11/23 16:48 Urine Urobilinogen Normal mg/dL (Normal) 03/11/23 16:48 Ur Leukocyte Esterase 2+ (Negative) H 03/11/23 16:48 Urine RBC 0-1 /HPF (0-4) 03/11/23 16:48 Urine WBC 10-19 /HPF (0-4) H 03/11/23 16:48 Ur Squamous Epith Cells 5-9 /HPF (0-2) H 03/11/23 16:48 Urine Bacteria None seen (None Seen) 03/11/23 16:48 Hyaline Casts 0-8 /LPF (0-8) 03/11/23 16:48 A&P - Hospitalist Assessment/Plan (1) Slurred speech: (2) Paresthesias in right hand: (3) Syncope: (4) Chronic kidney disease, stage III (moderate): (5) Diabetes: (6) Hypertensive urgency: Plan Patient with multiple risk factors including diabetes, hypertension and hyperlipidemia was brought to the emergency room with complaint of right facial droop with slurring of speech and syncopal episodes. In the ER CT head and necknegative for critical stenosis and her symptoms have resolved. Patient not a candidate for tPA since her symptoms have resolved. Given her multiple risk factors and multiple episodes of syncope she will require hospital stay for stroke work-up further evaluate regarding her syncope. Denies having dysuria wewill follow-up urine culture. Currently no signs of infection. Will obtain MRI, echocardiogram and lipid profile. Recent A1c on 02/05 was 7.6. Consult neurology to further evaluate. Continuous cardiac monitoring. Continue aspirin, beta-mervat, statin and antihypertensive medications. We will avoid rapid drop in blood pressure. Hold metformin and start on sliding scale coverage. DVT prophylaxis. Given her hypertensive urgency with recurrent syncopal episode and concern for stroke patient will require more than 2 midnights of hospital stay to further evaluate and stroke work-up. She will require titration of antihypertensive medications as well after the face for permissive cerebral perfusion due to concern for acute stroke. Documented By: Kimberly Arteaga MD 03/11/23 4073 Signed By: <Electronically signed by Kimberly Arteaga MD> 03/11/23 18[address] [facility] Work Phone: [phone] Miscellaneous Notes* Telephone Encounter - Jovanni Rg RN - 02/09/2023 12:49 PM EDT Informed pt of Daksha's message. Pt verbalized understanding and denies further needs at this time. Jovanni Rg RN * Telephone Encounter - Jovanni Rg RN - 02/09/2023 12:48 PM EDT ----- Message from Daksha Bridges PA-C sent at 02/09/2023 7:43 AM EDT ----- Please call with normal iron labs [facility] NoteHNO ID: [id number] Author: Daksha Bridges PA-C Service: ? Author Type: Physician Tester Operator Helper Type: Progress Notes Filed: 02/06/2023 2:44 PM Note Text: PATIENT NAME: Anh [facility] NO.: [id number] ATTENDING PHYSICIAN: Delores Walker MD DATE OF SERVICE: February 06, 2023 (Elements copied from Dr. Walker's note dated December 12, 2022, have been reviewed and updated where appropriate, and all reflect current assessment and medical decision making during today's encounter, February 06, 2023) CHIEF COMPLAINT: Follow up Diagnosis: NAINA Treatment: Venofer x 3 doses 10/2022 HPI: Anh returns for follow up. She is now on magnesium from her PCP. No other changes. Her last iron infusion was in October 2022. No evidence of bleeding. Still mild fatigue. Energy is still a little better. Current Outpatient Medications Medication Sig MEDIHONEY, HONEY, 100 % pste APPLY A THIN LAYER TWICE DAILY allopurinol (ZYLOPRIM) 100 mg tablet Take 100 mg by mouth once daily. ASCORBIC ACID, VITAMIN C, ORAL Take 500 mg by mouth once daily. aspirin (ASPIR-81 ORAL) Take 81 mg by mouth once daily. atenolol (TENORMIN) 50 mg tablet Take 50 mg by mouth once daily. atorvastatin (LIPITOR) 20 mg tablet Take 20 mg by mouth once daily. cholecalciferol (VITAMIN D3) 1,000 unit tab tablet Take 1,000 Units by mouth once daily. diclofenac, EC, (VOLTAREN) 75 mg EC tablet Take 75 mg by mouth once daily. furosemide (LASIX) 20 mg tablet Take 20 mg by mouth once daily. gabapentin (NEURONTIN) 300 mg capsule Take 300 mg by mouth daily at bedtime. lisinopril-hydroCHLOROthiazide (PRINZIDE,ZESTORETIC) 10-12.5 mg per tablet Take 1 tablet by mouth once daily. glimepiride (AMARYL) 2 mg tablet Take 2 mg by mouth daily with breakfast. metformin HCl (METFORMIN ORAL) Take 1,000 mg by mouth once daily. omeprazole (PRILOSEC) 20 mg capsule Take 20 mg by mouth once daily. rOPINIRole (REQUIP) 0.5 mg tablet Take 0.5 mg by mouth twice daily. No current facility-administered medications for this visit. ALLERGIES Allergen Reactions Acetaminophen-Codei* Other: See Comments pt states she is unwilling to try even plain tylenol after this experience even though she states she took tylenol prior to this and had no problems Tylenol #3 [Codeine] Other: See Comments Upset stomach PAST MEDICAL HISTORY Diagnosis Date Anemia Benign fundic gland polyps of stomach Diabetes mellitus (HCC) Diverticulosis GERD (gastroesophageal reflux disease) Hemorrhoids Hyperlipidemia Polyneuropathy Rectal polyp Restless leg syndrome PAST SURGICAL HISTORY Procedure Laterality Date COLONOSCOPY EGD W/O BRSH SPEC VARICIES INJ FAMILY HISTORY Problem Relation Age of Onset other (Congenital heart disease) Mother Lung Cancer Father Social History Tobacco Use Smoking status: Never Passive exposure: Past Smokeless tobacco: Never Substance Use Topics Alcohol use: Never Drug use: Not Currently REVIEW OF SYSTEMS GENERAL: No weight loss, malaise or fevers. No night sweats. +fatigue HEENT: Negative for headaches, No changes in hearing or vision, no nose bleeds or other nasal problems. RESPIRATORY: Negative for cough, wheezing +ONEIL CARDIOVASCULAR: Negative for chest pain, leg swelling and palpitations GI: Negative for abdominal discomfort, blood in stools or black stools and change in bowel habits : Negative for dysuria, frequency and incontinence MUSCULOSKELETAL: Negative for joint pain or swelling, back pain, and muscle pain. SKIN: Negative for lesions, rash, and itching. HEMATOLOGY/LYMPHOLOGY Negative for prolonged bleeding, bruising easily, and swollen nodes. NEURO: Negative for numbness or tingling of hands/feet. No weakness. PHYSICAL EXAMINATION: BP 137/61 Pulse 84 Temp 36.2 ?C (97.2 ?F) (Temporal) Resp 16 Ht 158 cm (5' 2.21 ) Wt 97.8 kg (215 lb 9.6 oz) SpO2 96% BMI 39.17 kg/m? ECOG PERFORMANCE STATUS: 1- Restricted in physically strenuous activity. Carries out light duty. General: Alert and oriented, no distress, pleasant and cooperative. Heart: Regular, normal S1 and S2, no murmurs, rubs, or gallops Lungs: Clear to auscultation bilaterally Abdomen: Benign Extremities: Feet/ankles without edema, posterior tibial pulses full and symmetrical LABS: Glucose (mg/dL) Date Value 02/06/2023 113 Potassium (mmol/L) Date Value 02/06/2023 4.4 Sodium (mmol/L) Date Value 02/06/2023 146 Chloride (mmol/L) Date Value 02/06/2023 103 CO2 (mmol/L) Date Value 02/06/2023 26 Creatinine (mg/dL) Date Value 02/06/2023 1.46 BUN (mg/dL) Date Value 02/06/2023 33 Anion Gap (mmol/L) Date Value 02/06/2023 17 Calcium, Total (mg/dL) Date Value 02/06/2023 9.1 Protein, Total (g/dL) Date Value 02/06/2023 7.0 Albumin (g/dL) Date Value 02/06/2023 4.4 Bilirubin, Total (mg/dL) Date Value 02/06/2023 0.3 Alkaline Phosphatase (U/L) Date Value 02/06/2023 (more content not included)...[facility]03-24-2023 History of Present illness Narrative* Daksha Bridges PA-C - 02/06/2023 2:30 PM EDT PATIENT NAME: Anh [facility] NO.: [id number] ATTENDING PHYSICIAN: Delores Walker MD DATE OF SERVICE: February 06, 2023 (Elements copied from Dr. Walker's note dated December 12, 2022, have been reviewed and updated where appropriate, and all reflect current assessment and medical decision making during today's encounter, February 06, 2023) CHIEF COMPLAINT: Follow up Diagnosis: NAINA Treatment: Venofer x 3 doses 10/2022 HPI: Anh returns for follow up. She is now on magnesium from her PCP. No other changes. Her last iron infusion was in October 2022. No evidence of bleeding. Still mild fatigue. Energy is still a little better. Current Outpatient Medications Medication Sig MEDIHONEY, HONEY, 100 % pste APPLY A THIN LAYER TWICE DAILY allopurinol (ZYLOPRIM) 100 mg tablet Take 100 mg by mouth once daily. ASCORBIC ACID, VITAMIN C, ORAL Take 500 mg by mouth once daily. aspirin (ASPIR-81 ORAL) Take 81 mg by mouth once daily. atenolol (TENORMIN) 50 mg tablet Take 50 mg by mouth once daily. atorvastatin (LIPITOR) 20 mg tablet Take 20 mg by mouth once daily. cholecalciferol (VITAMIN D3) 1,000 unit tab tablet Take 1,000 Units by mouth once daily. diclofenac, EC, (VOLTAREN) 75 mg EC tablet Take 75 mg by mouth once daily. furosemide (LASIX) 20 mg tablet Take 20 mg by mouth once daily. gabapentin (NEURONTIN) 300 mg capsule Take 300 mg by mouth daily at bedtime. lisinopril-hydroCHLOROthiazide (PRINZIDE,ZESTORETIC) 10-12.5 mg per tablet Take 1 tablet by mouth once daily. glimepiride (AMARYL) 2 mg tablet Take 2 mg by mouth daily with breakfast. metformin HCl (METFORMIN ORAL) Take 1,000 mg by mouth once daily. omeprazole (PRILOSEC) 20 mg capsule Take 20 mg by mouth once daily. rOPINIRole (REQUIP) 0.5 mg tablet Take 0.5 mg by mouth twice daily. No current facility-administered medications for this visit. ALLERGIES Allergen Reactions Acetaminophen-Codei* Other: See Comments pt states she is unwilling to try even plain tylenol after this experience even though she states she took tylenol prior to this and had no problems Tylenol #3 [Codeine] Other: See Comments Upset stomach PAST MEDICAL HISTORY Diagnosis Date Anemia Benign fundic gland polyps of stomach Diabetes mellitus (HCC) Diverticulosis GERD (gastroesophageal reflux disease) Hemorrhoids Hyperlipidemia Polyneuropathy Rectal polyp Restless leg syndrome PAST SURGICAL HISTORY Procedure Laterality Date COLONOSCOPY EGD W/O BRSH SPEC VARICIES INJ FAMILY HISTORY Problem Relation Age of Onset other (Congenital heart disease) Mother Lung Cancer Father Social History Tobacco Use Smoking status: Never Passive exposure: Past Smokeless tobacco: Never Substance Use Topics Alcohol use: Never Drug use: Not Currently REVIEW OF SYSTEMS GENERAL: No weight loss, malaise or fevers. No night sweats. +fatigue HEENT: Negative for headaches, No changes in hearing or vision, no nose bleeds or other nasal problems. RESPIRATORY: Negative for cough, wheezing +ONEIL CARDIOVASCULAR: Negative for chest pain, leg swelling and palpitations GI: Negative for abdominal discomfort, blood in stools or black stools and change in bowel habits : Negative for dysuria, frequency and incontinence MUSCULOSKELETAL: Negative for joint pain or swelling, back pain, and muscle pain. SKIN: Negative for lesions, rash, and itching. HEMATOLOGY/LYMPHOLOGY Negative for prolonged bleeding, bruising easily, and swollen nodes. NEURO: Negative for numbness or tingling of hands/feet. No weakness. PHYSICAL EXAMINATION: BP 137/61 Pulse 84 Temp 36.2 C (97.2 F) (Temporal) Resp 16 Ht 158 cm (5' 2.21 ) Wt 97.8 kg (215 lb 9.6 oz) SpO2 96% BMI 39.17 kg/m ECOG PERFORMANCE STATUS: 1- Restricted in physically strenuous activity. Carries out light duty. General: Alert and oriented, no distress, pleasant and cooperative. Heart: Regular, normal S1 and S2, no murmurs, rubs, or gallops Lungs: Clear to auscultation bilaterally Abdomen: Benign Extremities: Feet/ankles without edema, posterior tibial pulses full and symmetrical LABS: Glucose (mg/dL) Date Value 02/06/2023 113 Potassium (mmol/L) Date Value 02/06/2023 4.4 Sodium (mmol/L) Date Value 02/06/2023 146 Chloride (mmol/L) Date Value 02/06/2023 103 CO2 (mmol/L) Date Value 02/06/2023 26 Creatinine (mg/dL) Date Value 02/06/2023 1.46 BUN (mg/dL) Date Value 02/06/2023 33 Anion Gap (mmol/L) Date Value 02/06/2023 17 Calcium, Total (mg/dL) Date Value 02/06/2023 9.1 Protein, Total (g/dL) Date Value 02/06/2023 7.0 Albumin (g/dL) Date Value 02/06/2023 4.4 Bilirubin, Total (mg/dL) Date Value 02/06/2023 0.3 Alkaline Phosphatase (U/L) Date Value 02/06/2023 135 AST (U/L) Date Value 02/06/2023 42 ALT (U/L) Date Value 02/06/2023 30 WBC Date Value Ref Range Status 02/06/2023 6.45 3.70 - 11.00 k/uL Final RBC Date Value Ref Range Status 02/06/2023 3.77 (L) 3.90 - 5.20 m/uL Final Hemoglobin Date Value Ref Range Status 02/06/2023 10.8 (L) 11.5 - 15.5 g/dL Final Hematocrit Date Value Ref Range Status 02/06/2023 33.3 (L) 36.0 - 46.0 % Final MCV Date Value Ref Range Status 02/06/2023 88.3 80.0 - 100.0 fL Final MCH Date Value Ref Range Status 02/06/2023 28.6 26.0 - 34.0 pg Final MCHC Date Value Ref Range Status 02/06/2023 32.4 30.5 - 36.0 g/dL Final RDW-CV Date Value Ref Range Status 02/06/2023 16.0 (H) 11.5 - 15.0 % Final Platelet Count Date Value Ref Range Status 02/06/2023 151 150 - 400 k/uL Final MPV Date Value Ref Range Status 02/06/2023 9.7 9.0 - 12.7 fL Final Abs Neut Date Value Ref Range Status 02/06/2023 4.27 1.45 - 7.50 k/uL Final Lymphocytes % Date Value Ref Range Status 02/06/2023 22.2 % Final Abs Lymph Date Value Ref Range Status 02/06/2023 1.43 1.00 - 4.00 k/uL Final Monocytes % Date Value Ref Range Status 02/06/2023 5.7 % Final Abs [place] Date Value Ref Range Status 02/06/2023 0.37 <0.87 k/uL Final Eosinophils % Date Value Ref Range Status 02/06/2023 5.1 % Final Abs Eosin Date Value Ref Range Status 02/06/2023 0.33 <0.46 k/uL Final Basophils % Date Value Ref Range Status 02/06/2023 0.3 % Final Abs Baso Date Value Ref Range Status 02/06/2023 <0.03 <0.11 k/uL Final PATH: IMAGING: ASSESSMENT AND PLAN: Anh Tejeda is a 71 year old year old female past medical history significant for gastroesophageal reflux disease, hypertension, gout and type 2 diabetes with worsening anemia since January 2022. Reportedly patient has had normal iron stores in the past. She is slightly more microcytic on her most recent blood work. She had a GI work-up in May 2022 which was negative. Recent anemia work up showsiron deficiency. She has not tolerated oral iron in the past. Received Venofer x 3 doses (per insurance limitations). Hemoglobin stable. May have some component of anemia from CKD. Will follow up on iron levels and see her in 3 months. Daksha Bridges PA-C CC: Nisa Miranda CNP [facility] Discharge instructions Patient Education 12/24/2022 10:32:42 Gastroesophageal Reflux Disease, Adult Gastroesophageal Reflux Disease, Adult Gastroesophageal reflux (DANIELA) happens when acid from the stomach flows up into the tube that connects the mouth and the stomach (esophagus). Normally, food travels down the esophagus and stays in thestomach to be digested. However, when a person has DANIELA, food and stomach acid sometimes move back up into the esophagus. If this becomes a more serious problem, the person may be diagnosed with a disease called gastroesophageal reflux disease (GERD). GERD occurs when the reflux: Happens often. Causes frequent or severe symptoms. Causes problems such as damage to the esophagus. When stomach acid comes in contact with the esophagus, the acid may cause soreness (inflammation) in the esophagus. Over time, GERD may create small holes (ulcers) in the lining of the esophagus. What are the causes? This condition is caused by a problem with the muscle between the esophagus and the stomach (lower esophageal sphincter, or LES). Normally, the LES muscle closes after food passes through the esophagus to the stomach. When the LES is weakened or abnormal, it does not close properly, and that allowsfood and stomach acid to go back up into the esophagus. The LES can be weakened by certain dietary substances, medicines, and medical conditions, including: Tobacco use. . Having a hiatal hernia. Alcohol use. Certain foods and beverages, such as coffee, chocolate, onions, and peppermint. What increases the risk? You are more likely to develop this condition if you: Have an increased body weight. Have a connective tissue disorder. Use NSAID medicines. What are the signs or symptoms? Symptoms of this condition include: Heartburn. Difficult or painful swallowing. The feeling of having a lump in the throat. A bitter taste in the mouth. Bad breath. Having a large amount of saliva. Having an upset or bloated stomach. Belching. Chest pain. Different conditions can cause chest pain. Make sure you see your health care provider if you experience chest pain. Shortness of breath or wheezing. Ongoing (chronic) cough or a night-time cough. Wearing away of tooth enamel. Weight loss. How is this diagnosed? Your health care provider will take a medical history and perform a physical exam. To determine if you have mild or severe GERD, your health care provider may also monitor how you respond to treatment. You may also have tests, including: A test to examine your stomach and esophagus with a small camera (endoscopy). A test that measures the acidity level in your esophagus. A test that measures how much pressure is on your esophagus. A barium swallow or modified barium swallow test to show the shape, size, and functioning of your esophagus. How is this treated? The goal of treatment is to help relieve your symptoms and to prevent complications. Treatment for this condition may vary depending on how severe your symptoms are. Your health care provider may recommend: Changes to your diet. Medicine. Surgery. Follow these instructions at home: Eating and drinking Follow a diet as recommended by your health care provider. This may involve avoiding foods and drinks such as: ?Coffee and tea (with or without caffeine). ?Drinks that contain alcohol. ?Energy drinks and sports drinks. ?Carbonated drinks or sodas. ?Chocolate and cocoa. ?Peppermint and mint flavorings. ?Garlic and onions. ?Horseradish. ?Spicy and acidic foods, including peppers, chili powder, darling powder, vinegar, hot sauces, and barbecue sauce. ?Institute fruit juices and citrus fruits, such as oranges, myron, and limes. ?Tomato-based foods, such as red sauce, chili, salsa, and pizza with red sauce. ?Fried and fatty foods, such as donuts, mexican fries, potato chips, and high-fat dressings. ?High-fat meats, such as hot dogs and fatty cuts of red and white meats, such as rib eye steak, sausage, ham, and santos. ?High-fat dairy items, such as whole milk, butter, and cream cheese. Eat small, frequent meals instead of large meals. Avoid drinking large amounts of liquid with your meals. Avoid eating meals during the 2 3 hours before bedtime. Avoid lying down right after you eat. Do not exercise right after you eat. Lifestyle Do not use any products that contain nicotine or tobacco, such as cigarettes, e- cigarettes, and chewing tobacco. If you need help quitting, ask your health care provider. Try to reduce your stress by using methods such as yoga or meditation. If you need help reducing stress, ask your health care provider. If you are overweight, reduce your weight to an amount that is healthy for you. Ask your health care provider for guidance about a safe weight loss goal. General instructions Pay attention to any changes in your symptoms. Take ijbi-hza-shjqtlc and prescription medicines only as told by your health care provider. Do not take aspirin, ibuprofen, or other NSAIDs unless your health care provider told you to do so. Wear loose-fitting clothing. Do not wear anything tight around your waist that causes pressure on your abdomen. Raise (elevate) the head of your bed about 6 inches (15 cm). Avoid bending over if this makes your symptoms worse. Keep all follow-up visits as told by your health care provider. This is important. Contact a health care provider if: You have: ?New symptoms. ?Unexplained weight loss. ?Difficulty swallowing or it hurts to swallow. ?Wheezing or a persistent cough. ?A hoarse voice. Your symptoms do not improve with treatment. Get help right away if you: Have pain in your arms, neck, jaw, teeth, or back. Feel sweaty, dizzy, or light-headed. Have chest pain or shortness of breath. Vomit and your vomit looks like blood or coffee grounds. Faint. Have stool that is bloody or black. Cannot swallow, drink, or eat. Summary Gastroesophageal reflux happens when acid from the stomach flows up into the esophagus. GERD is a disease in which the reflux happens often, causes frequent or severe symptoms, or causes problems such as damage to the esophagus. Treatment for this condition may vary depending on how severe your symptoms are. Your health care provider may recommend diet and lifestyle changes, medicine, or surgery. Contact a health care provider if you have new or worsening symptoms. Take lisr-gzg-nmbhjhi and prescription medicines only as told by your health care provider. Do not take aspirin, ibuprofen, or other NSAIDs unless your health care provider told you to do so. Keep all follow-up visits as told by your health care provider. This is important. This information is not intended to replace advice given to you by your health care provider. Make sure you discuss any questions you have with your health care provider. Document Released: 08/12/2006 Document Revised: 05/11/2019 Document Reviewed: 05/11/2019 [employer] Patient Education 2020 [employer]. 12/24/2022 10:15:21 Gastroesophageal Reflux Disease, Adult Gastroesophageal Reflux Disease, Adult Gastroesophageal reflux (DANIELA) happens when acid from the stomach flows up into the tube that connects the mouth and the stomach (esophagus). Normally, food travels down the esophagus and stays in thestomach to be digested. However, when a person has DANIELA, food and stomach acid sometimes move back up into the esophagus. If this becomes a more serious problem, the person may be diagnosed with a disease called gastroesophageal reflux disease (GERD). GERD occurs when the reflux: Happens often. Causes frequent or severe symptoms. Causes problems such as damage to the esophagus. When stomach acid comes in contact with the esophagus, the acid may cause soreness (inflammation) in the esophagus. Over time, GERD may create small holes (ulcers) in the lining of the esophagus. What are the causes? This condition is caused by a problem with the muscle between the esophagus and the stomach (lower esophageal sphincter, or LES). Normally, the LES muscle closes after food passes through the esophagus to the stomach. When the LES is weakened or abnormal, it does not close properly, and that allowsfood and stomach acid to go back up into the esophagus. The LES can be weakened by certain dietary substances, medicines, and medical conditions, including: Tobacco use. . Having a hiatal hernia. Alcohol use. Certain foods and beverages, such as coffee, chocolate, onions, and peppermint. What increases the risk? You are more likely to develop this condition if you: Have an increased body weight. Have a connective tissue disorder. Use NSAID medicines. What are the signs or symptoms? Symptoms of this condition include: Heartburn. Difficult or painful swallowing. The feeling of having a lump in the throat. A bitter taste in the mouth. Bad breath. Having a large amount of saliva. Having an upset or bloated stomach. Belching. Chest pain. Different conditions can cause chest pain. Make sure you see your health care provider if you experience chest pain. Shortness of breath or wheezing. Ongoing (chronic) cough or a night-time cough. Wearing away of tooth enamel. Weight loss. How is this diagnosed? Your health care provider will take a medical history and perform a physical exam. To determine if you have mild or severe GERD, your health care provider may also monitor how you respond to treatment. You may also have tests, including: A test to examine your stomach and esophagus with a small camera (endoscopy). A test that measures the acidity level in your esophagus. A test that measures how much pressure is on your esophagus. A barium swallow or modified barium swallow test to show the shape, size, and functioning of your esophagus. How is this treated? The goal of treatment is to help relieve your symptoms and to prevent complications. Treatment for this condition may vary depending on how severe your symptoms are. Your health care provider may recommend: Changes to your diet. Medicine. Surgery. Follow these instructions at home: Eating and drinking Follow a diet as recommended by your health care provider. This may involve avoiding foods and drinks such as: ?Coffee and tea (with or without caffeine). ?Drinks that contain alcohol. ?Energy drinks and sports drinks. ?Carbonated drinks or sodas. ?Chocolate and cocoa. ?Peppermint and mint flavorings. ?Garlic and onions. ?Horseradish. ?Spicy and acidic foods, including peppers, chili powder, darling powder, vinegar, hot sauces, and barbecue sauce. ?Institute fruit juices and citrus fruits, such as oranges, myron, and limes. ?Tomato-based foods, such as red sauce, chili, salsa, and pizza with red sauce. ?Fried and fatty foods, such as donuts, mexican fries, potato chips, and high-fat dressings. ?High-fat meats, such as hot dogs and fatty cuts of red and white meats, such as rib eye steak, sausage, ham, and santos. ?High-fat dairy items, such as whole milk, butter, and cream cheese. Eat small, frequent meals instead of large meals. Avoid drinking large amounts of liquid with your meals. Avoid eating meals during the 2 3 hours before bedtime. Avoid lying down right after you eat. Do not exercise right after you eat. Lifestyle Do not use any products that contain nicotine or tobacco, such as cigarettes, e- cigarettes, and chewing tobacco. If you need help quitting, ask your health care provider. Try to reduce your stress by using methods such as yoga or meditation. If you need help reducing stress, ask your health care provider. If you are overweight, reduce your weight to an amount that is healthy for you. Ask your health care provider for guidance about a safe weight loss goal. General instructions Pay attention to any changes in your symptoms. Take jufe-fbi-pwgodti and prescription medicines only as told by your health care provider. Do not take aspirin, ibuprofen, or other NSAIDs unless your health care provider told you to do so. Wear loose-fitting clothing. Do not wear anything tight around your waist that causes pressure on your abdomen. Raise (elevate) the head of your bed about 6 inches (15 cm). Avoid bending over if this makes your symptoms worse. Keep all follow-up visits as told by your health care provider. This is important. Contact a health care provider if: You have: ?New symptoms. ?Unexplained weight loss. ?Difficulty swallowing or it hurts to swallow. ?Wheezing or a persistent cough. ?A hoarse voice. Your symptoms do not improve with treatment. Get help right away if you: Have pain in your arms, neck, jaw, teeth, or back. Feel sweaty, dizzy, or light-headed. Have chest pain or shortness of breath. Vomit and your vomit looks like blood or coffee grounds. Faint. Have stool that is bloody or black. Cannot swallow, drink, or eat. Summary Gastroesophageal reflux happens when acid from the stomach flows up into the esophagus. GERD is a disease in which the reflux happens often, causes frequent or severe symptoms, or causes problems such as damage to the esophagus. Treatment for this condition may vary depending on how severe your symptoms are. Your health care provider may recommend diet and lifestyle changes, medicine, or surgery. Contact a health care provider if you have new or worsening symptoms. Take fhsv-hrs-qyzaxvy and prescription medicines only as told by your health care provider. Do not take aspirin, ibuprofen, or other NSAIDs unless your health care provider told you to do so. Keep all follow-up visits as told by your health care provider. This is important. This information is not intended to replace advice given to you by your health care provider. Make sure you discuss any questions you have with your health care provider. Document Released: 08/12/2006 Document Revised: 05/11/2019 Document Reviewed: 05/11/2019 [employer] Patient Education 2020 [employer]. Follow Up Care 09/19/2022 13:04:08 With:Nisa Miranda CNP Address: When:3 months [facility] 01-30-2023 Miscellaneous Notes* Telephone Encounter - Jovanni Rg RN - 12/15/2022 2:30 PM EST Informed pt of Daksha's message. Pt verbalized understanding and denies further needs at this time. Jovanni Rg RN * Telephone Encounter - Jovanni Rg RN - 12/15/2022 9:36 AM EST ----- Message from Daksha Bridges PA-C sent at 12/15/2022 8:11 AM EST ----- Please call with normal iron stores. Keep appointments as scheduled [facility] NoteHNO ID: [id number] Author: Daksha Bridges PA-C Service: ? Author Type: Physician Tester Operator Helper Type: Progress Notes Filed: 12/12/2022 2:59 PM Note Text: PATIENT NAME: Anh [facility] NO.: [id number] ATTENDING PHYSICIAN: Delorse Walker MD DATE OF SERVICE: December 12, 2022 (Elements copied from Dr. Walker's note dated October 17, 2022, have been reviewed and updated where appropriate, and all reflect current assessment and medical decision making during today's encounter, December 12, 2022) CHIEF COMPLAINT: Follow up Diagnosis: NAINA Treatment: Venofer x 3 doses 10/2023 HPI: Anh returns for follow up. She received venofer in October. She does not feel much different. Breathing is a little better. She just still has fatigue. Energy is slightly improved Current Outpatient Medications Medication Sig allopurinol (ZYLOPRIM) 100 mg tablet Take 100 mg by mouth once daily. ASCORBIC ACID, VITAMIN C, ORAL Take 500 mg by mouth once daily. aspirin (ASPIR-81 ORAL) Take 81 mg by mouth once daily. atenolol (TENORMIN) 50 mg tablet Take 50 mg by mouth once daily. atorvastatin (LIPITOR) 20 mg tablet Take 20 mg by mouth once daily. cholecalciferol (VITAMIN D3) 1,000 unit tab tablet Take 1,000 Units by mouth once daily. diclofenac, EC, (VOLTAREN) 75 mg EC tablet Take 75 mg by mouth once daily. furosemide (LASIX) 20 mg tablet Take 20 mg by mouth once daily. gabapentin (NEURONTIN) 300 mg capsule Take 300 mg by mouth daily at bedtime. lisinopril-hydroCHLOROthiazide (PRINZIDE,ZESTORETIC) 10-12.5 mg per tablet Take 1 tablet by mouth once daily. glimepiride (AMARYL) 2 mg tablet Take 2 mg by mouth daily with breakfast. metformin HCl (METFORMIN ORAL) Take 1,000 mg by mouth once daily. omeprazole (PRILOSEC) 20 mg capsule Take 20 mg by mouth once daily. rOPINIRole (REQUIP) 0.5 mg tablet Take 0.5 mg by mouth twice daily. No current facility-administered medications for this visit. ALLERGIES Allergen Reactions Acetaminophen-Codei* Other: See Comments pt states she is unwilling to try even plain tylenol after this experience even though she states she took tylenol prior to this and had no problems Tylenol #3 [Codeine] Other: See Comments Upset stomach PAST MEDICAL HISTORY Diagnosis Date Anemia Benign fundic gland polyps of stomach Diabetes mellitus (HCC) Diverticulosis GERD (gastroesophageal reflux disease) Hemorrhoids Hyperlipidemia Polyneuropathy Rectal polyp Restless leg syndrome PAST SURGICAL HISTORY Procedure Laterality Date COLONOSCOPY EGD W/O BRSH SPEC VARICIES INJ FAMILY HISTORY Problem Relation Age of Onset other (Congenital heart disease) Mother Lung Cancer Father Social History Tobacco Use Smoking status: Never Passive exposure: Past Smokeless tobacco: Never Substance Use Topics Alcohol use: Never Drug use: Not Currently REVIEW OF SYSTEMS GENERAL: No weight loss, malaise or fevers. No night sweats. +fatigue HEENT: Negative for headaches, No changes in hearing or vision, no nose bleeds or other nasal problems. RESPIRATORY: Negative for cough, wheezing +ONEIL CARDIOVASCULAR: Negative for chest pain, leg swelling and palpitations GI: Negative for abdominal discomfort, blood in stools or black stools and change in bowel habits : Negative for dysuria, frequency and incontinence MUSCULOSKELETAL: Negative for joint pain or swelling, back pain, and muscle pain. SKIN: Negative for lesions, rash, and itching. HEMATOLOGY/LYMPHOLOGY Negative for prolonged bleeding, bruising easily, and swollen nodes. NEURO: Negative for numbness or tingling of hands/feet. No weakness. PHYSICAL EXAMINATION: BP 170/75 Pulse 69 Temp 36.3 ?C (97.4 ?F) (Temporal) Resp 16 Ht 158 cm (5' 2.21 ) Wt 98 kg (216 lb) SpO2 96% BMI 39.25 kg/m? ECOG PERFORMANCE STATUS: 1- Restricted in physically strenuous activity. Carries out light duty. General: Alert and oriented, no distress, pleasant and cooperative. Heart: Regular, normal S1 and S2, no murmurs, rubs, or gallops Lungs: Clear to auscultation bilaterally Abdomen: Benign Extremities: Feet/ankles without edema, posterior tibial pulses full and symmetrical LABS: Glucose (mg/dL) Date Value 12/12/2022 226 Potassium (mmol/L) Date Value 12/12/2022 3.6 Sodium (mmol/L) Date Value 12/12/2022 141 Chloride (mmol/L) Date Value 12/12/2022 101 CO2 (mmol/L) Date Value 12/12/2022 27 Creatinine (mg/dL) Date Value 12/12/2022 1.24 BUN (mg/dL) Date Value 12/12/2022 41 Anion Gap (mmol/L) Date Value 12/12/2022 13 Calcium, Total (mg/dL) Date Value 12/12/2022 8.7 Protein, Total (g/dL) Date Value 12/12/2022 6.9 Albumin (g/dL) Date Value 12/12/2022 4.4 Bilirubin, Total (mg/dL) Date Value 12/12/2022 0.3 Alkaline Phosphatase (U/L) Date Value 12/12/2022 142 AST (U/L) Date Value 12/12/2022 33 ALT (U/L) Date Value 12/12/2022 27 WBC Da (more content not included)...[facility]01-27-2023 History of Present illness Narrative* Daksha Bridges PA-C - 12/12/2022 3:00 PM EST PATIENT NAME: Anh [facility] NO.: [id number] ATTENDING PHYSICIAN: Delores Walker MD DATE OF SERVICE: December 12, 2022 (Elements copied from Dr. Walker's note dated October 17, 2022, have been reviewed and updated where appropriate, and all reflect current assessment and medical decision making during today's encounter, December 12, 2022) CHIEF COMPLAINT: Follow up Diagnosis: NAINA Treatment: Venofer x 3 doses 10/2023 HPI: Anh returns for follow up. She received venofer in October. She does not feel much different. Breathing is a little better. She just still has fatigue. Energy is slightly improved Current Outpatient Medications Medication Sig allopurinol (ZYLOPRIM) 100 mg tablet Take 100 mg by mouth once daily. ASCORBIC ACID, VITAMIN C, ORAL Take 500 mg by mouth once daily. aspirin (ASPIR-81 ORAL) Take 81 mg by mouth once daily. atenolol (TENORMIN) 50 mg tablet Take 50 mg by mouth once daily. atorvastatin (LIPITOR) 20 mg tablet Take 20 mg by mouth once daily. cholecalciferol (VITAMIN D3) 1,000 unit tab tablet Take 1,000 Units by mouth once daily. diclofenac, EC, (VOLTAREN) 75 mg EC tablet Take 75 mg by mouth once daily. furosemide (LASIX) 20 mg tablet Take 20 mg by mouth once daily. gabapentin (NEURONTIN) 300 mg capsule Take 300 mg by mouth daily at bedtime. lisinopril-hydroCHLOROthiazide (PRINZIDE,ZESTORETIC) 10-12.5 mg per tablet Take 1 tablet by mouth once daily. glimepiride (AMARYL) 2 mg tablet Take 2 mg by mouth daily with breakfast. metformin HCl (METFORMIN ORAL) Take 1,000 mg by mouth once daily. omeprazole (PRILOSEC) 20 mg capsule Take 20 mg by mouth once daily. rOPINIRole (REQUIP) 0.5 mg tablet Take 0.5 mg by mouth twice daily. No current facility-administered medications for this visit. ALLERGIES Allergen Reactions Acetaminophen-Codei* Other: See Comments pt states she is unwilling to try even plain tylenol after this experience even though she states she took tylenol prior to this and had no problems Tylenol #3 [Codeine] Other: See Comments Upset stomach PAST MEDICAL HISTORY Diagnosis Date Anemia Benign fundic gland polyps of stomach Diabetes mellitus (HCC) Diverticulosis GERD (gastroesophageal reflux disease) Hemorrhoids Hyperlipidemia Polyneuropathy Rectal polyp Restless leg syndrome PAST SURGICAL HISTORY Procedure Laterality Date COLONOSCOPY EGD W/O BRSH SPEC VARICIES INJ FAMILY HISTORY Problem Relation Age of Onset other (Congenital heart disease) Mother Lung Cancer Father Social History Tobacco Use Smoking status: Never Passive exposure: Past Smokeless tobacco: Never Substance Use Topics Alcohol use: Never Drug use: Not Currently REVIEW OF SYSTEMS GENERAL: No weight loss, malaise or fevers. No night sweats. +fatigue HEENT: Negative for headaches, No changes in hearing or vision, no nose bleeds or other nasal problems. RESPIRATORY: Negative for cough, wheezing +ONEIL CARDIOVASCULAR: Negative for chest pain, leg swelling and palpitations GI: Negative for abdominal discomfort, blood in stools or black stools and change in bowel habits : Negative for dysuria, frequency and incontinence MUSCULOSKELETAL: Negative for joint pain or swelling, back pain, and muscle pain. SKIN: Negative for lesions, rash, and itching. HEMATOLOGY/LYMPHOLOGY Negative for prolonged bleeding, bruising easily, and swollen nodes. NEURO: Negative for numbness or tingling of hands/feet. No weakness. PHYSICAL EXAMINATION: BP 170/75 Pulse 69 Temp 36.3 C (97.4 F) (Temporal) Resp 16 Ht 158 cm (5' 2.21 ) Wt 98 kg (216 lb) SpO2 96% BMI 39.25 kg/m ECOG PERFORMANCE STATUS: 1- Restricted in physically strenuous activity. Carries out light duty. General: Alert and oriented, no distress, pleasant and cooperative. Heart: Regular, normal S1 and S2, no murmurs, rubs, or gallops Lungs: Clear to auscultation bilaterally Abdomen: Benign Extremities: Feet/ankles without edema, posterior tibial pulses full and symmetrical LABS: Glucose (mg/dL) Date Value 12/12/2022 226 Potassium (mmol/L) Date Value 12/12/2022 3.6 Sodium (mmol/L) Date Value 12/12/2022 141 Chloride (mmol/L) Date Value 12/12/2022 101 CO2 (mmol/L) Date Value 12/12/2022 27 Creatinine (mg/dL) Date Value 12/12/2022 1.24 BUN (mg/dL) Date Value 12/12/2022 41 Anion Gap (mmol/L) Date Value 12/12/2022 13 Calcium, Total (mg/dL) Date Value 12/12/2022 8.7 Protein, Total (g/dL) Date Value 12/12/2022 6.9 Albumin (g/dL) Date Value 12/12/2022 4.4 Bilirubin, Total (mg/dL) Date Value 12/12/2022 0.3 Alkaline Phosphatase (U/L) Date Value 12/12/2022 142 AST (U/L) Date Value 12/12/2022 33 ALT (U/L) Date Value 12/12/2022 27 WBC Date Value Ref Range Status 12/12/2022 5.64 3.70 - 11.00 k/uL Final RBC Date Value Ref Range Status 12/12/2022 3.74 (L) 3.90 - 5.20 m/uL Final Hemoglobin Date Value Ref Range Status 12/12/2022 10.5 (L) 11.5 - 15.5 g/dL Final Hematocrit Date Value Ref Range Status 12/12/2022 32.6 (L) 36.0 - 46.0 % Final MCV Date Value Ref Range Status 12/12/2022 87.2 80.0 - 100.0 fL Final MCH Date Value Ref Range Status 12/12/2022 28.1 26.0 - 34.0 pg Final MCHC Date Value Ref Range Status 12/12/2022 32.2 30.5 - 36.0 g/dL Final RDW-CV Date Value Ref Range Status 12/12/2022 18.6 (H) 11.5 - 15.0 % Final Platelet Count Date Value Ref Range Status 12/12/2022 157 150 - 400 k/uL Final MPV Date Value Ref Range Status 12/12/2022 9.0 9.0 - 12.7 fL Final Abs Neut Date Value Ref Range Status 12/12/2022 3.92 1.45 - 7.50 k/uL Final Lymph% Date Value Ref Range Status 12/12/2022 22.0 % Final Abs Lymph Date Value Ref Range Status 12/12/2022 1.24 1.00 - 4.00 k/uL Final Pickens% Date Value Ref Range Status 12/12/2022 5.0 % Final Abs Pickens Date Value Ref Range Status 12/12/2022 0.28 <0.87 k/uL Final Eosin% Date Value Ref Range Status 12/12/2022 2.5 % Final Abs Eosin Date Value Ref Range Status 12/12/2022 0.14 <0.46 k/uL Final Baso% Date Value Ref Range Status 12/12/2022 0.5 % Final Abs Baso Date Value Ref Range Status 12/12/2022 0.03 <0.11 k/uL Final PATH: IMAGING: ASSESSMENT AND PLAN: Anh Tejeda is a 71 year old year old female past medical history significant for gastroesophageal reflux disease, hypertension, gout and type 2 diabetes with worsening anemia since January 2022. Reportedly patient has had normal iron stores in the past. She is slightly more microcytic on her most recent blood work. She had a GI work-up in May 2022 which was negative. Recent anemia work up showsiron deficiency. She has not tolerated oral iron in the past. Received Venofer x 3 doses (per insurance limitations). Hemoglobin improved but not normalized. Will await iron stores and offer additional iron if indication. Return in 2 months for follow up and repeat labs. Daksha Bridges PA-C CC: Nisa Miranda CNP documented in this encounterOhio [facility]12-07-2022 History of Present illness Narrative* MAGUE Bean - 10/22/2022 9:46 AM EST Patient appears on the [facility] First Time Treatment List for a non-oncology treatment. No psychosocial assessment is indicated. ALIA Bean documented in this encounterOhio Valley Surgical Hospital12-01-2022 History of Present illness Narrative* Daksha Bridges PA-C - 10/16/2022 10:30 AM EST PATIENT NAME: Anh Tejeda CLINIC NO.: [id number] ATTENDING PHYSICIAN: Delores Walker MD DATE OF SERVICE: October 17, 2022 (Elements copied from Dr. Walker's note dated October 01, 2022, have been reviewed and updated where appropriate, and all reflect current assessment and medical decision making during today's encounter, October 17, 2022) CHIEF COMPLAINT: I am tired and anemic HPI: Anh returns to start IV Venofer due to her recent work up for anemia confirmed iron deficiency. She had been on oral iron in the past and did not tolerate it. She does have fatigue and ONEIL from her anemia. Denies chest pain or swelling. Current Outpatient Medications Medication Sig allopurinol (ZYLOPRIM) 100 mg tablet Take 100 mg by mouth once daily. ASCORBIC ACID, VITAMIN C, ORAL Take 500 mg by mouth once daily. aspirin (ASPIR-81 ORAL) Take 81 mg by mouth once daily. atenolol (TENORMIN) 50 mg tablet Take 50 mg by mouth once daily. atorvastatin (LIPITOR) 20 mg tablet Take 20 mg by mouth once daily. cholecalciferol (VITAMIN D3) 1,000 unit tab tablet Take 1,000 Units by mouth once daily. diclofenac, EC, (VOLTAREN) 75 mg EC tablet Take 75 mg by mouth once daily. furosemide (LASIX) 20 mg tablet Take 20 mg by mouth once daily. gabapentin (NEURONTIN) 300 mg capsule Take 300 mg by mouth daily at bedtime. lisinopril-hydroCHLOROthiazide (PRINZIDE,ZESTORETIC) 10-12.5 mg per tablet Take 1 tablet by mouth once daily. glimepiride (AMARYL) 2 mg tablet Take 2 mg by mouth daily with breakfast. metformin HCl (METFORMIN ORAL) Take 1,000 mg by mouth once daily. omeprazole (PRILOSEC) 20 mg capsule Take 20 mg by mouth once daily. rOPINIRole (REQUIP) 0.5 mg tablet Take 0.5 mg by mouth twice daily. No current facility-administered medications for this visit. ALLERGIES Allergen Reactions Acetaminophen-Codei* Other: See Comments pt states she is unwilling to try even plain tylenol after this experience even though she states she took tylenol prior to this and had no problems Tylenol #3 [Codeine] Other: See Comments Upset stomach PAST MEDICAL HISTORY Diagnosis Date Anemia Benign fundic gland polyps of stomach Diabetes mellitus (HCC) Diverticulosis GERD (gastroesophageal reflux disease) Hemorrhoids Hyperlipidemia Polyneuropathy Rectal polyp Restless leg syndrome PAST SURGICAL HISTORY Procedure Laterality Date COLONOSCOPY EGD W/O BRSH SPEC VARICIES INJ FAMILY HISTORY Problem Relation Age of Onset other (Congenital heart disease) Mother Lung Cancer Father Social History Tobacco Use Smoking status: Never Passive exposure: Past Smokeless tobacco: Never Substance Use Topics Alcohol use: Never Drug use: Not Currently REVIEW OF SYSTEMS GENERAL: No weight loss, malaise or fevers. No night sweats. +fatigue HEENT: Negative for headaches, No changes in hearing or vision, no nose bleeds or other nasal problems. RESPIRATORY: Negative for cough, wheezing +ONEIL CARDIOVASCULAR: Negative for chest pain, leg swelling and palpitations GI: Negative for abdominal discomfort, blood in stools or black stools and change in bowel habits : Negative for dysuria, frequency and incontinence MUSCULOSKELETAL: Negative for joint pain or swelling, back pain, and muscle pain. SKIN: Negative for lesions, rash, and itching. HEMATOLOGY/LYMPHOLOGY Negative for prolonged bleeding, bruising easily, and swollen nodes. NEURO: Negative for numbness or tingling of hands/feet. No weakness. PHYSICAL EXAMINATION: BP 149/62 Pulse 92 Temp 36.6 C (97.9 F) (Temporal) Resp 16 Ht 158 cm (5' 2.21 ) Wt 97.1 kg (214 lb) SpO2 98% BMI 38.88 kg/m ECOG PERFORMANCE STATUS: 1- Restricted in physically strenuous activity. Carries out light duty. P General: Alert and oriented, no distress, pleasant and cooperative. Heart: Regular, normal S1 and S2, no murmurs, rubs, or gallops Lungs: Clear to auscultation bilaterally Abdomen: Benign Extremities: Feet/ankles without edema, posterior tibial pulses full and symmetrical LABS: Glucose (mg/dL) Date Value 10/01/2022 191 Potassium (mmol/L) Date Value 10/01/2022 3.7 Sodium (mmol/L) Date Value 10/01/2022 148 Chloride (mmol/L) Date Value 10/01/2022 109 CO2 (mmol/L) Date Value 10/01/2022 27 Creatinine (mg/dL) Date Value 10/01/2022 1.34 BUN (mg/dL) Date Value 10/01/2022 35 Anion Gap (mmol/L) Date Value 10/01/2022 12 Calcium, Total (mg/dL) Date Value 10/01/2022 8.8 Protein, Total (g/dL) Date Value 10/01/2022 6.8 10/01/2022 6.5 Albumin (g/dL) Date Value 10/01/2022 4.3 Bilirubin, Total (mg/dL) Date Value 10/01/2022 0.2 Alkaline Phosphatase (U/L) Date Value 10/01/2022 120 AST (U/L) Date Value 10/01/2022 28 ALT (U/L) Date Value 10/01/2022 20 WBC Date Value Ref Range Status 10/01/2022 5.46 3.70 - 11.00 k/uL Final RBC Date Value Ref Range Status 10/01/2022 3.36 (L) 3.90 - 5.20 m/uL Final Hemoglobin Date Value Ref Range Status 10/01/2022 8.5 (L) 11.5 - 15.5 g/dL Final Hematocrit Date Value Ref Range Status 10/01/2022 27.7 (L) 36.0 - 46.0 % Final MCV Date Value Ref Range Status 10/01/2022 82.4 80.0 - 100.0 fL Final MCH Date Value Ref Range Status 10/01/2022 25.3 (L) 26.0 - 34.0 pg Final MCHC Date Value Ref Range Status 10/01/2022 30.7 30.5 - 36.0 g/dL Final RDW-CV Date Value Ref Range Status 10/01/2022 16.9 (H) 11.5 - 15.0 % Final Platelet Count Date Value Ref Range Status 10/01/2022 170 150 - 400 k/uL Final MPV Date Value Ref Range Status 10/01/2022 9.4 9.0 - 12.7 fL Final Abs Neut Date Value Ref Range Status 10/01/2022 3.99 1.45 - 7.50 k/uL Final Lymph% Date Value Ref Range Status 10/01/2022 19.6 % Final Abs Lymph Date Value Ref Range Status 10/01/2022 1.07 1.00 - 4.00 k/uL Final Pickens% Date Value Ref Range Status 10/01/2022 4.6 % Final Abs [place] Date Value Ref Range Status 10/01/2022 0.25 <0.87 k/uL Final Eosin% Date Value Ref Range Status 10/01/2022 2.2 % Final Abs Eosin Date Value Ref Range Status 10/01/2022 0.12 <0.46 k/uL Final Baso% Date Value Ref Range Status 10/01/2022 0.4 % Final Abs Baso Date Value Ref Range Status 10/01/2022 <0.03 <0.11 k/uL Final PATH: IMAGING: ASSESSMENT AND PLAN: Anh Tejeda is a 71 year old year old female past medical history significant for gastroesophageal reflux disease, hypertension, gout and type 2 diabetes with worsening anemia since January 2022. Reportedly patient has had normal iron stores in the past. She is slightly more microcytic on her most recent blood work. She had a GI work-up in May 2022 which was negative. Recent anemia work up showsiron deficiency. She has not tolerated oral iron in the past. Will proceed wit IV Venofer x4 doses and see her back in 6-8 weeks with repeat labs. Reviewed potential side effects of venofer with the patient as well. Daksha rBidges PA-C CC: Nisa Miranda CNP documented in this encounterOhio [facility]11-30-2022 Miscellaneous Notes* Telephone Encounter - Haley Burt - 10/15/2022 10:08 AM EST Patient on 1st time treatment report-non oncology regimen (venofer) Patient holds medicare coverageand no FA available for this treatment. documented in this encounterOhio Valley [facility] Hospital11-29-2022 Evaluation note* Encounter Date Diagnosis Assessment Notes Treatment Notes Treatment Clinical Notes Sep, Obstructive sleep apnea (ICD-10 - G47.33) Fortunately, the patient is using and benefiting from treatment. Download was reviewed with patient, Current pressure is controlling apnea well, And we will make no changes at this time. A prescription was sent to the [employer] for new supplies throughout the year. She was encouraged to continue to use her machine nightly, throughout the entire night and for naps as this does provide clinical benefit. She will follow-up in the sleep clinic in 1 year or sooner if problems. Sep, BMI 36.0-36.9,adult (ICD-10 - Z68.36) Patient is obese, positive effects of weight loss on COLTEN were reviewed. She was encouraged to continue to work on diet modification and increase activity, we will continue to monitor. Sep, Nasal congestion (ICD-10 - R09.81) Pt reports increased nasal congestion and rhinorrhea s/p COVID infection in July 2022. She states that sometimes it can be difficult for her to use her machine due to this. She states that she will occasionally use some OTC Coricidin HBP with little relief. I recommended that patient use a OTC nasal corticosteroid such as Flonase or Nasacort to help with the symptoms. Sep, Restless leg syndrome (ICD-10 - G25.81) Pt reports improved symptom relief with increased medication dosage. She continues to follow with PCP for this. Sep, Other Call if any questions or problems. For Sleep Apnea: Patient is advised to work on healthy diet choices and appropriate servings, weight control, regular exercise as directed, and reduce fat intake. Use machine regularly, and keep up with mask changes as needed. Call if problems with mask toleration, increased sleepiness, or poor response to treatment. Take medication as prescribed, keep follow up appointments, get any testing that's been ordered in a timely fashion. Do not smoke [employer] Other 11-25-2022 History of Present illness Narrative* MAGUE Bean - 10/10/2022 9:09 AM EST Patient appears on the First Time Treatment List for a non-oncology treatment. No psychosocial assessment is indicated. ALIA Bean documented in this encounterOhio [facility]11-21-2022 Miscellaneous Notes* Telephone Encounter - Colette Carbajal - 10/06/2022 9:23 AM EST Patient has been scheduled for 10/16. Call placed to patient and had to leave a message on her voicemail to let her know to expect an Iron infusion after her appointment with Dr. Walker. Colette Carbajal * Telephone Encounter - Delores Walker MD - 10/03/2022 6:51 PM EST Order placed * Telephone Encounter - Mony Jacinto RN - 10/03/2022 5:09 PM EST Spoke with pt and she is agreeable to IV iron. Please call pt to schedule. Thanks Mony Jacinto RN * Telephone Encounter - Mony Jacinto RN - 10/03/2022 5:08 PM EST ----- Message from Delores Walker MD sent at 10/03/2022 4:24 PM EST ----- Please let her know that her Iron levels are low and that she will need IV iron and if she is OK with us arranging for it documented in this encounterOhio Valley [facility] Hospital11-16-2022 History of Present illness Narrative* Delores Walker MD - 10/01/2022 11:47 AM EST PATIENT NAME: Anh Tejeda [facility] NO.: [id number] ATTENDING PHYSICIAN: Delores Walker MD DATE OF SERVICE: October 01, 2022 Dear Nisa Miranda thank you for referring Mrs Anh Tejeda for an opinion regarding Anemia. CHIEF COMPLAINT: I am tired and anemic HPI: Anh Tejeda is a 71 year old year old female with past medical history significant for hypertension, gout, type 2 diabetes and hyperlipidemia who has noted increasing fatigue as well as dyspnea exertion over the last 2 months. She states that her appetite has been fine. Last 6 months she is lost 15 pounds. Denies any changes in her bowel habits. Denies nausea vomiting fevers or chills. In January 2022 she was noted to have slight anemia which at that time was normocytic. Reported blood work including iron studies were within normal limits. The patient underwent an EGD and colonoscopy in May 2022. The colonoscopy revealed sessile polyp in the rectum which was nonmalignant moderate diverticulosis. The upper endoscopy also did not reveal any abnormalities and a gastric polyp was removed which again was nonmalignant. Patient had repeat laboratory studies in September 2022 which showed a hemoglobin of 9.1, MCV of 77.White blood cell count platelet count within normal limits with a normal differential. She denies any chest pain. She denies fever chills or night sweats. Her past medical history significant for hypertension, gout, gastroesophageal reflux disease, diabetes and hyperlipidemia. Past surgical history includes hysterectomy knee surgery as well as cholecystectomy. She does not smoke nor drink. She is and has 1 daughter. Current Outpatient Medications Medication Sig allopurinol (ZYLOPRIM) 100 mg tablet Take 100 mg by mouth once daily. ASCORBIC ACID, VITAMIN C, ORAL Take 500 mg by mouth once daily. aspirin (ASPIR-81 ORAL) Take 81 mg by mouth once daily. atenolol (TENORMIN) 50 mg tablet Take 50 mg by mouth once daily. atorvastatin (LIPITOR) 20 mg tablet Take 20 mg by mouth once daily. cholecalciferol (VITAMIN D3) 1,000 unit tab tablet Take 1,000 Units by mouth once daily. diclofenac, EC, (VOLTAREN) 75 mg EC tablet Take 75 mg by mouth once daily. furosemide (LASIX) 20 mg tablet Take 20 mg by mouth once daily. gabapentin (NEURONTIN) 300 mg capsule Take 300 mg by mouth daily at bedtime. lisinopril-hydroCHLOROthiazide (PRINZIDE,ZESTORETIC) 10-12.5 mg per tablet Take 1 tablet by mouth once daily. glimepiride (AMARYL) 2 mg tablet Take 2 mg by mouth daily with breakfast. metformin HCl (METFORMIN ORAL) Take 1,000 mg by mouth once daily. omeprazole (PRILOSEC) 20 mg capsule Take 20 mg by mouth once daily. rOPINIRole (REQUIP) 0.5 mg tablet Take 0.5 mg by mouth twice daily. No current facility-administered medications for this visit. ALLERGIES Allergen Reactions Acetaminophen-Codei* Other: See Comments pt states she is unwilling to try even plain tylenol after this experience even though she states she took tylenol prior to this and had no problems Tylenol #3 [Codeine] Other: See Comments Upset stomach PAST MEDICAL HISTORY Diagnosis Date Anemia Benign fundic gland polyps of stomach Diabetes mellitus (HCC) Diverticulosis GERD (gastroesophageal reflux disease) Hemorrhoids Hyperlipidemia Polyneuropathy Rectal polyp Restless leg syndrome PAST SURGICAL HISTORY Procedure Laterality Date COLONOSCOPY EGD W/O BRSH SPEC VARICIES INJ FAMILY HISTORY Problem Relation Age of Onset other (Congenital heart disease) Mother Lung Cancer Father Social History Tobacco Use Smoking status: Never Passive exposure: Past Smokeless tobacco: Never Substance Use Topics Alcohol use: Never Drug use: Not Currently REVIEW OF SYSTEMS GENERAL: No weight loss, malaise or fevers. No night sweats. HEENT: Negative for headaches, No changes in hearing or vision, no nose bleeds or other nasal problems. RESPIRATORY: Negative for cough, wheezing and shortness of breath CARDIOVASCULAR: Negative for chest pain, leg swelling and palpitations GI: Negative for abdominal discomfort, blood in stools or black stools and change in bowel habits : Negative for dysuria, frequency and incontinence MUSCULOSKELETAL: Negative for joint pain or swelling, back pain, and muscle pain. SKIN: Negative for lesions, rash, and itching. HEMATOLOGY/LYMPHOLOGY Negative for prolonged bleeding, bruising easily, and swollen nodes. NEURO: Negative for numbness or tingling of hands/feet. No weakness. PHYSICAL EXAMINATION: BP 153/66 Pulse 92 Temp 36.1 C (96.9 F) (Temporal) Resp 18 Ht 158 cm (5' 2.21 ) Wt 98.1 kg (216 lb 3.2 oz) SpO2 96% BMI 39.28 kg/m Wt 98.1 kg (216 lb 3.2 oz) BMI 39.28 kg/m2 Last 3 Encounter Wt Readings: Date: Wt: 10/01/2022 98.1 kg (216 lb 3.2 oz) General appearance:ECOG PERFORMANCE STATUS: 1- Restricted in physically strenuous activity. Carries out light duty. Patient in NAD. Skin: Skin color, texture, turgor normal. No rashes or lesions. Eyes: Anicteric sclera. Pupils are equally round and reactive to light. Extraocular movements are intact. Breast: No palpable breast masses. No nipple change or discharge. Lymph Nodes: No cervical, supraclavicular, axillary or inguinal adenopathy. Oropharynx: Lips, mucosa, and tongue normal. Back: No pain to percussion. Negative SLR test Lungs clear to auscultation, No wheezing or rhonchi Heart: RRR without murmur, gallop, or rubs. Abdomen soft, non-tender. No masses, organomegaly Extremities: No deformities. No edema Neuro: Gait and speech normal. Reflexes normal and symmetric. Muscular strength intact. Sensation grossly intact. Rectal: Deferred : Deferred LABS: No results found for: GLUC, K, NA, CHLOR, CO2, CREAT, BUN, ANION, CA, TPROT, ALB, TBILI, ALKPHOS, AST, ALT No results found for: WBC, RBC, HB, HCT, MCV, MCH, MCHC, RDWCV, PLT, MPV, MPV, NEUT, ABSNEUT, LYMPHP, ABSLYMPH, MONOP, ABSMONO, EOSINP, ABSEOSIN, BASOP, ABSBASO PATH: IMAGING: ASSESSMENT AND PLAN: Anh Tejeda is a 71 year old year old female past medical history significant for gastroesophageal reflux disease, hypertension, gout and type 2 diabetes with worsening anemia since January 2022. Reportedly patient has had normal iron stores in the past. She is slightly more microcytic on her most recent blood work. She had a GI work-up in May 2022 which was negative. Had a discussion with her in regards to causes of anemia. At this time we will repeat her CBC, repeat her iron stores, B12, reticulocyte count, LDH, zinc as well as monoclonal paraproteins. If the results are not consistent with an abnormality I stated that the neck step would be to proceed with a bone marrow aspirate and biopsy to rule out myelodysplastic process. Labs today, see back in [address] Nisa Miranda, thank you for allowing me to participate in Mrs. Anh Tejeda care, if there are any questions or concerns please do not hesitate to contact me at the number below. Delores Walker M.D. Hematology/Medical Oncology [facility] [phone] CC: Nisa Miranda, JENY documented in this encounterOhio Valley Surgical Hospital10-18-2022 Evaluation + Plan note Future Scheduled Tests Laboratory* B-Type Natriuretic Peptide 09/02/22 * TIBC Calculated 04/23/22 * Ferritin 04/23/22 * Folate Level 04/23/22 * Hepatic Function Panel 04/23/22 * Iron Level 04/23/22 * Magnesium Level 3/22/23 * Reticulocyte Count 04/23/22 * Vitamin B12 Level 04/23/22 [facility] Hospital Discharge instructions Patient Education 06/12/2022 09:13:55 Diverticulosis MAGR (CUSTOM) Diverticulosis Many people have small pouches in their colon called diverticulum. The diverticulum bulge outward through weak spots in the colon. You could have one or more of these pouches in the colon. The condition of having these pouches in the colon is called diverticulosis or diverticular disease. Diverticulosis is usually diagnosed by tests to evaluate something else. For example, you may have had a colonoscopy to screen for colon cancer when the diverticulosis was found. Most people with diverticulosis do not have any discomfort or problems. If symptoms develop, they may include mild cramps, bloating, and constipation. A complication of this condition is called diverticulitis. This is when the diverticulum become inflamed and infected. How to treat diverticulosis: Increasing the amount of fiber in the diet may reduce symptoms of diverticulosis and prevent complications such as diverticulitis (infected diverticuli). Fiber keeps stool soft and lowers pressure inside the colon so that bowel contents can move througheasily. You should eat 20 to 35 grams of fiber each day. The table below shows the amount of fiber in some foods that you can easily add to your diet. Adding fiber slowly may decrease the bloating and fullness sometimes felt with an immediate high fiber diet. The doctor may also recommend taking a fiber product such as Citrucel or Metamucil once a day. In the past people with diverticulosis were to avoid nuts, corn, and seeds. This has not been foundto be true. If you find that certain foods create cramping or bloating, avoid that food. Foods high in fiber include: Fresh fruits, fresh vegetables, legumes (beans), whole wheat bread, bran muffins or cereal, and nuts. See the table below for examples of high fiber foods. Remember, your goal is 20- 35 grams per day. Amount of fiber in different foods Food Serving Grams of fiber Fruits Apple (with skin) 1 medium apple 4.4 Banana 1 medium banana 3.1 Oranges 1 orange 3.1 Prunes 1 cup, pitted 12.4 Juices Apple, unsweetened, w/added ascorbic acid 1 cup 0.5 Grapefruit, white, canned, sweetened 1 cup 0.2 Grape, unsweetened, w/added ascorbic acid 1 cup 0.5 Eastman 1 cup 0.7 Vegetables Cooked Green beans 1 cup 4.0 Carrots 1/2 cup sliced 2.3 Peas 1 cup 8.8 Potato (baked, with skin) 1 medium potato 3.8 Raw Ward (with peel) 1 cucumber 1.5 Lettuce 1 cup shredded 0.5 Tomato 1 medium tomato 1.5 Spinach 1 cup 0.7 Legumes Baked beans, canned, no salt added 1 cup 13.9 Kidney beans, canned 1 cup 13.6 Macias beans, canned 1 cup 11.6 Lentils, boiled 1 cup 15.6 Breads, pastas, flours Bran muffins 1 medium muffin 5.2 Oatmeal, cooked 1 cup 4.0 White bread 1 slice 0.6 Whole-wheat bread 1 slice 1.9 Pasta and rice, cooked Macaroni 1 cup 2.5 Rice, brown 1 cup 3.5 Rice, white 1 cup 0.6 Spaghetti (regular) 1 cup 2.5 Nuts Almonds 1/2 cup 8.7 Peanuts 1/2 cup 7.9 Chart from [facility] 2013. SEEK IMMEDIATE MEDICAL CARE IF: You develop abdominal (belly) pain. An oral temperature above _ 101 F__develops. Repeated vomiting occurs. Blood is being passed in stools (bright red or black tarry stools). You develop any bowel problems or changes which you have not had before. Extra Information: To learn how much fiber and other nutrients are in different foods, visit the [place] Department of Agriculture (USDA) National Nutrient Database at: http://www.nal.usda.gov/fnic/foodcomp/search/ Created using data from the USDA National Nutrient Database for Standard Reference. Available at http://www.nal.usda.gov/fnic/foodcomp/search/. Information adapted from: ExitCare Patient Information 2009 [employer]. Ali 2012 http://www.[employer]/contents/blpzwsulwtxi-tgzdetf-qtjtbg-the-basics 06/12/2022 09:13:55 Colon Polyps Colon Polyps Polyps are tissue growths inside the body. Polyps can grow in many places, including the large intestine (colon). A polyp may be a round bump or a mushroom-shaped growth. You could have one polyp or several. Most colon polyps are noncancerous (benign). However, some colon polyps can become cancerous over time. Finding and removing the polyps early can help prevent this. What are the causes? The exact cause of colon polyps is not known. What increases the risk? You are more likely to develop this condition if you: Have a family history of colon cancer or colon polyps. Are older than 50 or older than 45 if you are . Have inflammatory bowel disease, such as ulcerative colitis or Crohn's disease. Have certain hereditary conditions, such as: ?Familial adenomatous polyposis. ?Ordonez syndrome. ?Turcot syndrome. ?Peutz Jeghers syndrome. Are overweight. Smoke cigarettes. Do not get enough exercise. Drink too much alcohol. Eat a diet that is high in fat and red meat and low in fiber. Had childhood cancer that was treated with abdominal radiation. What are the signs or symptoms? Most polyps do not cause symptoms. If you have symptoms, they may include: Blood coming from your rectum when having a bowel movement. Blood in your stool. The stool may look dark red or black. Abdominal pain. A change in bowel habits, such as constipation or diarrhea. How is this diagnosed? This condition is diagnosed with a colonoscopy. This is a procedure in which a lighted, flexible scope is inserted into the anus and then passed into the colon to examine the area. Polyps are sometimes found when a colonoscopy is done as part of routine cancer screening tests. How is this treated? Treatment for this condition involves removing any polyps that are found. Most polyps can be removed during a colonoscopy. Those polyps will then be tested for cancer. Additional treatment may be needed depending on the results of testing. Follow these instructions at home: Lifestyle Maintain a healthy weight, or lose weight if recommended by your health care provider. Exercise every day or as told by your health care provider. Do not use any products that contain nicotine or tobacco, such as cigarettes and e-cigarettes. If you need help quitting, ask your health care provider. If you drink alcohol, limit how much you have: ?0 1 drink a day for women. ? 0 2 drinks a day for men. Be aware of how much alcohol is in your drink. In the [place] one drink equals one 12 oz bottle of beer (355 mL), one 5 oz glass of wine (148 mL), or one 1 oz shot of hard liquor (44 mL). Eating and drinking Eat foods that are high in fiber, such as fruits, vegetables, and whole grains. Eat foods that are high in calcium and vitamin D, such as milk, cheese, yogurt, eggs, liver, fish, and broccoli. Limit foods that are high in fat, such as fried foods and desserts. Limit the amount of red meat and processed meat you eat, such as hot dogs, sausage, santos, and lunch meats. General instructions Keep all follow-up visits as told by your health care provider. This is important. ?This includes having regularly scheduled colonoscopies. ?Talk to your health care provider about when you need a colonoscopy. Contact a health care provider if: You have new or worsening bleeding during a bowel movement. You have new or increased blood in your stool. You have a change in bowel habits. You lose weight for no known reason. Summary Polyps are tissue growths inside the body. Polyps can grow in many places, including the colon. Most colon polyps are noncancerous (benign), but some can become cancerous over time. This condition is diagnosed with a colonoscopy. Treatment for this condition involves removing any polyps that are found. Most polyps can be removed during a colonoscopy. This information is not intended to replace advice given to you by your health care provider. Make sure you discuss any questions you have with your health care provider. Document Released: 07/29/2005 Document Revised: 02/17/2019 Document Reviewed: 02/17/2019 [employer] Patient Education 2020 [employer]. 06/12/2022 09:13:55 Colonoscopy, Care After Surgery Salam (CUSTOM) Colonoscopy Care After Surgery Please read the instructions outlined below and refer to this sheet in the next few weeks. These discharge instructions provide you with general information on caring for yourself after you leave thespital. Your doctor may also give you specific instructions. While your treatment has been planned according to the most current medical practices available, unavoidable complications occasionally occur. If you have any problems or questions after discharge, please call your doctor. ACTIVITY You may resume your regular activity, but move at a slower pace for the next 24 hours. Take frequent rest periods for the next 24 hours. Walking will help get rid of the air and reduce the bloated feeling in your abdomen (belly). No driving for 24 hours (because of the anesthesia (medicine) used during the test). You may shower. Do not sign any important legal documents or operate any machinery for 24 hours (because of the anesthesia used during the test). NUTRITION Drink plenty of fluids. You may resume your normal diet as instructed by your doctor. Begin with a light meal and progress to your normal diet. Heavy or fried foods are harder to digestand may make you feel nauseated (sick to your stomach). Avoid alcoholic beverages for 24 hours or as instructed. MEDICATIONS You may resume your normal medications unless your doctor tells you otherwise. WHAT YOU CAN EXPECT TODAY Some feelings of bloating in the abdomen. Passage of more gas than usual. Spotting of blood in your stool or on the toilet paper. FOLLOW-UP Your doctor will discuss the results of your test with you. SEEK IMMEDIATE MEDICAL ATTENTION IF: There is more than a spotting of blood in your stool. There is abdominal distention (your abdomen is swollen). There is vomiting. You have a temperature over 101.5 F. There is abdominal pain or discomfort that is severe or gets worse throughout the day. 06/12/2022 09:13:55 Endoscopy, Care After Procedure [facility] Endoscopy Care After Procedure Please read the instructions outlined below and refer to this sheet in the next few weeks. These discharge instructions provide you with general information on caring for [facility] Your doctor may also give you specific instructions. While your treatment has been planned according to the most current medical practices available, unavoidable complications occasionally occur. If you have any problems or questions after discharge, please call your doctor. ACTIVITY You may resume your regular activity but move at a slower pace for the next 24 hours. Take frequent rest periods for the next 24 hours. Walking will help expel (get rid of) the air and reduce the bloated feeling in your abdomen. No driving for 24 hours (because of the anesthesia (medicine) used during the test). You may shower. Do not sign any important legal documents or operate any machinery for 24 hours (because of the anesthesia used during the test). NUTRITION Drink plenty of fluids. You may resume your normal diet. Begin with a light meal and progress to your normal diet. Avoid alcoholic beverages for 24 hours or as instructed by your caregiver. MEDICATIONS You may resume your normal medications unless your caregiver tells you otherwise. WHAT YOU CAN EXPECT TODAY You may experience abdominal discomfort such as a feeling of fullness or gas pains. FOLLOW-UP Your doctor will discuss the results of your test with you. SEEK IMMEDIATE MEDICAL ATTENTION IF ANY OF THE FOLLOWING OCCUR: Excessive nausea (feeling sick to your stomach) and/or vomiting. Severe abdominal pain and distention (swelling). Trouble swallowing. Temperature over 100 F (37.8 C). Rectal bleeding or vomiting of blood. Document Released: 06/16/2005 Document Re-Released: 04/26/2007 ExitCare Patient Information 2009 [employer]. Follow Up Care 04/23/2022 14:07:59 With:Jason RUSSELL Address: [address] [place] [address]. [address] [address] Business (1) When:1 to 2 weeks Comments:Call for any problems. [facility] Kimberly Arteaga [facility] March 13, 2023 1:09pm Note Date/Time March 13, 2023 1:0 8pm [facility] [address] [place], [place] [id number] Discharge Summary Signed Patient: Anh Tejeda MR#: [id number] : 1950 Acct:[id number] Age/Sex: 72 / F Adm Date: 3 Loc: Room: [address] [place] [address]: Kimberly Arteaga MD Copies to: DO Kimberly Rubio MD~ Providers Date of Discharge: 03/13/23 Discharging Provider: Kimberly Arteaga Primary Care Provider: Vinay Matta Consults: 03/11/23 18:56 Consult to Neurology Routine 03/11/23 18:58 Consult to Physical Therapy Routine 03/11/23 18:59 Consult to Occupational Therapy Routine Consult to Speech Therapy Routine Discharge Diagnosis (1) Syncope: (2) Hypertensive urgency: (3) Diabetes: (4) Chronic kidney disease, stage III (moderate): (5) Paresthesias in right hand: (6) Slurred speech: (7) Acute UTI: Final Diagnosis Final Discharge Diagnosis: As above Summary Hospital Course Hospital course: Patient is a pleasant 72-year-old female past medical history of diabetes mellitus type 2 on oral hypoglycemic agent, chronically disease, hypertension, hyperlipidemia other medical comorbidities. She was brought to the emergency room after having a syncopal episode and noted to have slurring of speech and questionable facial droop. As per the brother she had a syncopal episode tryingto stand. Patient also mentioned having chronic paresthesia in the right hand suspecting carpal tunnel syndrome. She is also been told to have sciatica on the right leg with significant neuropathy. Given her multiple risk factors and concern for stroke patient was admitted for stroke work-up. She was also diagnosed to have UTI with urine culture came back growing E. coli. She was seen by neurology with recommendation for outpatient follow-up for EMG regardingher paresthesia. Her symptoms likely combination of UTI and suspecting autonomic neuropathy. Discussed with patient and her brother regarding precautionary measures to prevent fall due to concern for autonomic dysfunction. MRI brain was negative for acute abnormality. No critical stenosis seen on CTAhead and neck. Echocardiogram showing preserved ejection fraction with normal wall motion. No event monitor on telemetry but given her recurrent syncopal episode she will be discharged on an event monitor. Will recommend to hold Lasix to prevent further risk of orthostatic hypotension especially on admissionher creatinine was elevated than baseline likely increased diuresis from UTI leading to dehydration. Condition Condition at Discharge: Stable Status at Discharge Functional status at discharge: independent ambulation Overall status at discharge: patient is back to baseline Time Spent with Patient Time spent providing/coordinating discharge services (# min): 35 Diagnostic Studies Completed and Pending Studies Labs on day of discharge: 03/13/23 06:58: POC Glucose 162 03/13/23 06:48: Potassium 3.8 03/13/23 05:13: Corrected WBC 5.0, Uncorrected WBC Count 5.0, RBC 3.81, Hgb 10.9L, Hct 32.5 L, MCV 85.3, MCH 28.6, MCHC 33.5, RDW 16.8 H, Plt Count 152, MPV 7.2, Neut % (Auto) 62.5, Lymph % (Auto) 28.5, Pickens % (Auto) 6.9, Eos % (Auto) 1.7, Baso % (Auto) 0.4, Nucleat RBC Rel Count 0.1, Neut # (Auto) 3.1, Lymph # (Auto) 1.4, Pickens # (Auto) 0.3, Eos # (Auto) 0.1, Baso # (Auto) 0.0 03/13/23 05:13: PHA Creatinine Clear 39.70, Sodium 141, Potassium , Chloride 103, Carbon Dioxide 29.6, Anion Gap TNP, BUN 28 H, Creatinine 1.35 H, Est GFR (CKD- EPI) 41.239, Glucose 130 H, Calcium 8.5 L 03/12/23 20:40: POC Glucose 303 03/12/23 16:12: POC Glucose 103 Exam Physical Exam Vital Signs: Temp Pulse Resp BP Pulse Ox O2 Del Method 97.7 F 76 16 126/72 96 Room Air 03/13/23 08:00 03/13/23 10:00 03/13/23 10:00 03/13/23 10:00 03/13/23 10:00 03/13/23 08:00 Const Orientation: alert, awake and oriented x3 Resp Effort & Inspection: normal respiratory effort and able to speak in complete sentences Auscultation: no rales, no rhonchi and no wheezes Cardio Rate: regular rate Rhythm: regular rhythm Heart Sounds: S1 normal and S2 normal GI Palpation: soft, not firm, no guarding and nontender Neuro General: patient alert, patient awake, patient oriented x3, moves all extremities and no focal motor deficits Cranial Nerves: CN's II-XII intact bilaterally Cognition: normal cognition Speech: speech normal Motor: muscle tone normal throughout and strength 5/5 throughout Extrem General: no clubbing, cyanosis or edema and no calf tenderness Discharge Plan Discharge Plan Patient Disposition: Home Activity: No Activity Restriction Diet: Carb Count, Low-Sodium and Low-Cholesterol Additional Instructions: Get up slowly from lying or sitting position, sit down if you feel faint. If able take a blood pressure during event. Instructions: Ambulatory Cardiac Monitoring (DC) Prescriptions: New cephalexin 500 mg capsule 500 mg PO BID 5 Days Qty: 10 0RF Continued allopurinol 100 mg tablet 100 mg PO BID ropinirole 2 mg tablet 2 mg PO QHS Patient Comments: TAKE 1 TABLET BY MOUTH EVERY EVENING for restless legs ascorbic acid (vitamin C) [Vitamin C] 500 mg Tablet 500 mg PO DAILY aspirin 81 mg Tablet 81 mg PO DAILY ergocalciferol (vitamin D2) 200 mcg/mL (8,000 unit/mL) Drops 200 mcg PO DAILY cyanocobalamin (vitamin B-12) [Vitamin B-12] 1,000 mcg Tablet 1,000 mcg PO DAILY atorvastatin 20 mg Tablet 20 mg PO DAILY lisinopril-hydrochlorothiazide 20-12.5 mg Tablet 1 tab PO DAILY glimepiride 2 mg Tablet 2 mg PO BID metformin 1,000 mg Tablet 1,000 mg PO BID gabapentin 300 mg Capsule 900 mg PO HS Patient Comments: origional order for 300mg TID. But patient takes 900mg at HS instead with physician permission atenolol 50 mg Tablet 50 mg PO DAILY omeprazole magnesium [Prilosec OTC] 20 mg Tablet,Delayed Release (Dr/Ec) 20 mg PO DAILY Held furosemide 20 mg tablet 20 mg PO QAM Hold Instructions: HOLD UNTIL SEEN BY YOUR FAMILY PHYSICIAN Discontinued diclofenac sodium 75 mg tablet,delayed release (DR/EC) 75 mg PO BID Follow Up: [facility] [Outside] - 03/19/23 9:00 am (With Nano HUDDLESTON and Dr. Grover) Vinay Matta DO [Primary Care Provider] - (The office is aware of your hospital stay and need for follow up in 1 week, the office will call you to schedule. Please call the office if you have not heard from them by the next business day.) Documented By: Kimberly Arteaga MD 03/13/23 1302 Signed By: <Electronically signed by Kimberly Arteaga MD> 03/13/23 4056 [facility] Work Phone: Evaluation + Plan note Future Appointments Appointment Date:06/12/2022 08:45:00 AM Scheduled Provider: Location:[facility] Appointment Type:Surgery FT Appointment Date:08/18/2022 11:45:00 AM Scheduled Provider:Jose Carlos Mattson MD Location:[facility] Appointment Type:Cardiology Follow Up (FT) Future Scheduled Tests Laboratory* TIBC Calculated 04/23/22 * Ferritin 04/23/22 * Folate Level 04/23/22 * Hepatic Function Panel 04/23/22 * Iron Level 04/23/22 * Reticulocyte Count 04/23/22 * Vitamin B12 Level 04/23/22 [facility] Evaluation + Plan note Future Appointments Appointment Date:08/18/2022 11:45:00 AM Scheduled Provider:Jose Carlos Mattson [facility] ([facility] Future Scheduled Tests Laboratory* TIBC Calculated 04/23/22 * Ferritin 04/23/22 * Folate Level 04/23/22 * Hepatic Function Panel 04/23/22 * Iron Level 04/23/22 * Reticulocyte Count 04/23/22 * Vitamin B12 Level 04/23/22 [facility]ments Appointment Date:09/19/2022 12:20:00 PM Scheduled Provider:Nisa Miranda CNP Location:[facility] Appointment Type:[facility] Follow Up Future Scheduled Tests Laboratory* B-Type Natriuretic Peptide 09/02/22 * TIBC Calculated 04/23/22 * Ferritin 04/23/22 * Folate Level 04/23/22 * Hepatic Function Panel 04/23/22 * Iron Level 04/23/22 * Reticulocyte Count 04/23/22 * Vitamin B12 Level 04/23/22 [facility] App[facility]ments Appointment Date:12/24/2022 10:20:00 AM Scheduled Provider:Nisa Miranda CNP Location:[facility] Appointment Type:[facility] Follow Up Future Scheduled Tests Laboratory* B-Type Natriuretic Peptide 09/02/22 * TIBC Calculated 04/23/22 * Ferritin 04/23/22 * Folate Level 04/23/22 * Hepatic Function Panel 04/23/22 * Iron Level 04/23/22 * Reticulocyte Count 04/23/22 * Vitamin B12 Level 04/23/22 [facility] App[facility]ments Appointment Date:02/03/2023 10:00:00 AM Scheduled Provider: [facility] Type:US Abdominal/Pelvis (FT) Appointment Date:03/23/2023 09:20:00 AM Scheduled Provider:Nisa Miranda CNP Location:[facility] Dig[facility]ive [facility] Appointment Type:BAD Follow Up Future Scheduled Tests Laboratory* B-Type Natriuretic Peptide 09/02/22 * TIBC Calculated 04/23/22 * Basic Metabolic Panel 12/24/22 * CBC w/ Auto Diff 12/24/22 * Ferritin 04/23/22 * Folate Level 04/23/22 * Hepatic Function Panel 04/23/22 * Hepatic Function Panel 12/24/22 * Iron Level 04/23/22 * Magnesium Level 12/24/22 * Reticulocyte Count 04/23/22 * Vitamin B12 Level 04/23/22 * Vitamin B12 Level 12/24/22 Radiology* US Liver 02/03/23 * NM Gastric Emptying Study 12/24/22 [facility] Evaluation + Plan note Future Appointments Appointment Date:02/03/2023 10:00:00 AM Scheduled Provider: Location[facility] Appointment Type:US Abdominal/Pelvis () Appointment Date:03/23/2023 09:20:00 AM Scheduled Provider:Nisa Miranda CNP Location:[facility] Appointment Type:[facility] Follow Up Future Scheduled Tests Laboratory* B-Type Natriuretic Peptide 09/02/22 * TIBC Calculated 04/23/22 * Basic Metabolic Panel 12/24/22 * CBC w/ Auto Diff 12/24/22 * Ferritin 04/23/22 * Folate Level 04/23/22 * Hepatic Function Panel 04/23/22 * Hepatic Function Panel 12/24/22 * Iron Level 04/23/22 * Magnesium Level 12/24/22 * Reticulocyte Count 04/23/22 * Vitamin B12 Level 04/23/22 * Vitamin B12 Level 12/24/22 Radiology* US Liver 02/03/23 [facility] Appointments Appointment Date:04/22/2023 10:00:00 AM Scheduled Provider: Location:[facility] Appointment Type:Surgery FT Future Scheduled Tests Laboratory* B-Type Natriuretic Peptide 09/02/22 * TIBC Calculated 04/23/22 * Ferritin 04/23/22 * Folate Level 04/23/22 * Hepatic Function Panel 04/23/22 * Iron Level 04/23/22 * Magnesium Level 02/04/23 * Reticulocyte Count 04/23/22 * Vitamin B12 Level 04/23/22 [facility] Evaluation + Plan note Future Appointments Appointment Date:01/28/2024 09:00:00 AM Scheduled Provider: [facility] Type:US Abdominal/Pelvis () Appointment Date:02/29/2024 09:20:00 AM Scheduled Provider:Nisa Miranda CNP Location:[facility] Appointment Type:[facility] Follow Up Future Scheduled Tests Laboratory* HCV RNA by PCR, Qn Rfx Arlet 12/08/23 * [id number] 12/08/23 * Ceruloplasmin 12/08/23 * Antimitochondrial Antibody, Quantitative 12/08/23 * Smooth Muscle Antibody Screen 12/08/23 * MAXX w/Reflex if POS 12/08/23 * HBV Core Ab 12/08/23 * TIBC Calculated 12/08/23 * Celiac Disease Comprehensive 12/08/23 * HCV Genotyping Non Reflex 12/08/23 * HCV Antibody RFX to Quant PCR 12/08/23 * HIV Screen 4th Generation wRfx 12/08/23 * CBC w/ Indices 12/08/23 * Comprehensive Metabolic Panel 12/08/23 * Ferritin 12/08/23 * Hepatitis B Surface Antibody 12/08/23 * Hepatitis B Surface Antigen 12/08/23 * Iron Level 12/08/23 * Magnesium Level 02/04/23 * PT 12/08/23 * Transferrin 12/08/23 Radiology* US Liver 01/28/24 [facility] Evaluation noteNo assessment information available [facility] Work Phone: Evaluation note* Diagnosis Anemia, unspecified type- Primary [facility] Diagnosis Iron deficiency anemia due to chronic blood loss Iron deficiency anemia secondary to blood loss (chronic) [facility] Diagnosis Anemia, unspecified type- Primary Iron deficiency anemia secondary to inadequate dietary iron intake [facility] Diagnosis Iron deficiency anemia due to chronic blood loss- Primary Iron deficiency anemia secondary to blood loss (chronic) [facility] Diagnosis Iron deficiency anemia due to chronic blood loss- Primary Iron deficiency anemia secondary to blood loss (chronic) [facility] Diagnosis Iron deficiency anemia due to chronic blood loss- Primary Iron deficiency anemia secondary to blood loss (chronic) [facility] Diagnosis Iron deficiency anemia secondary to inadequate dietary iron intake- Primary [facility] Diagnosis Iron deficiency anemia secondary to inadequate dietary iron intake- Primary documented in this encounter [facility] note* Diagnosis Onset Date Resolution Status Acute UTI acute Chronic kidney disease, stage III (moderate) acute Diabetes acute Hypertensive urgency acute Paresthesias in right hand a cute Slurred speech acute Syncope acute [facility] Work Phone: Evaluation note* Diagnosis Iron deficiency anemia secondary to inadequate dietary iron intake- Primary Stage 3b chronic kidney disease (HCC) [facility] Diagnosis Iron deficiency anemia secondary to inadequate dietary iron intake- Primary Stage 3b chronic kidney disease (HCC) documented in this encounter [facility] general Narrative - Reported* Type Description Date Medical History Gastroesophageal ref lux disease, esophagitis presence not specified Medical History RLS (restless legs syndrome) Medical History Benign essential HTN Medical History Hypercholesterolemia Medical History Type 2 diabetes jonathan itus without complication, without long-term current use of insulin Medical History COLTEN (obstructive sleep apnea) Surgical History hysterectomy Surgical History cholecystectomy Surgical History knee arthroscopy OPHTHONIX Other Hospital course Narrative No data available for this section [facility] Hospital Discharge instructions No data available for this section [facility] Progress note No data available for this section [facility] Advance Directives No Advanced Directives Records Found Advance Directive Response Recorded Date/ Time Advance Directives No September 24, 2017 1:08pm Advance Directive Response Recorded Date/ Time Advance Directives No September 24, 2017 12:08pm Chief Complaint and Reason for Visit Chief Complaint See order Chief Complaint knee pain / swelling See order Screening Chief Complaint See order Screening COVID+ Chief Complaint See order Screening COVID+ AKF Chief Complaint See order Screening COVID+ AKF z78.0 z13.820 Chief Complaint COVID+ AKF z78.0 z13.820 Sleep apnea annual follow up Chief Complaint G47.33 G25.81 Z68.36 R09.81 Abdominal Wound Chief Complaint Abdominal Wound Z79.89 M10.00D 508E11.9 E78.6 weakness 24 hr heart monitor Reason for Visit Acute UTI Chronic kidney disease, stage III (moderate) Diabetes Hypertensive urgency Paresthesias in right hand Slurred speech Syncope Chief Complaint Z79.89/I12.9/M10.00/ E78.2/E11.22/E11.9/N18.3 Chief Complaint Z79.89/I12.9/M10.00/ E78.2/E11.22/E11.9/N18.3 Sleep apnea annual follow up Assessments No Assessments Information Available Medications Administered Section Inactive Administered Medications - up to 3 most recent administrations Medication Order MAR Action Action Date Dose Rate Site iron sucrose 300 mg in NaCl 0.9% 250 mL (VENOFER) 300 mg, INTRAVENOUS, at 166.67 mL/hr, Administer over 90 Minutes, ONCE, 1 dose, On [place] 10/16/22 at 1100, Please conduct a 30 minute post dose observation. New Bag/Syringe/Bottle 10/16/2022 10:55 AM EST 300 mg 166.67 mL/hr Inactive Administered Medications - up to 3 most recent administrations Medication Order MAR Action Action Date Dose Rate Site iron sucrose 300 mg in NaCl 0.9% 250 mL (VENOFER) 300 mg, INTRAVENOUS, at 166.67 mL/hr, Administer over 90 Minutes, ONCE, 1 dose, On [place] 10/23/22 at 1400, Please conduct a 30 minute post dose observation. New Bag/Syringe/Bottle 10/23/2022 1:45 PM EST 300 mg 166.67 mL/hr Inactive Administered Medications - up to 3 most recent administrations Medication Order MAR Action Action Date Dose Rate Site iron sucrose 300 mg in NaCl 0.9% 250 mL (VENOFER) 300 mg, INTRAVENOUS, at 166.67 mL/hr, Administer over 90 Minutes, ONCE, 1 dose, On [place] 10/30/22 at 1330, Please conduct a 30 minute post dose observation. New Bag/Syringe/Bottle 10/30/2022 1:32 PM EST 300 mg 166.67 mL/hr Family History No Family History Records Found Relationship Condition Age at Onset Recorded Date/T elsie father Malignant neoplasm Unknown Not Specified Diabetes mellitus Unknown Congestive heart failure Unknown Chronic obstructive pulmonary disease Unk nown Malignant neoplasm Unknown Cerebrovascular accident (CVA) Unknown brother Diabetes mellitus Unknown brother Multiple sclerosis Unknown Summary Purpose Additional Source Comments Care Team (unrecognized sect ion and content) Team Status: Inactive Member Role Status Dates Vinayreji Escalerahomer , DO Primary Care Provider, Attending P jovany Active Team Status: Inactive Member Role Status Dates Vinayreji Escalerating , DO Primary Care Provider, Referring P jovany Active Referral Self Attending Provider Active Team Status: Active Member Role Status Dates Vinay Bunting , DO Primary Care Provider Active Team Status: Inactive Member Role Status Dates Vinayreji Escalerahomer , DO Primary Care Provider Active Anand Yusuf PA-C Emergency Provider Active Team Status: Inactive Member Role Status Dates Vinayreji Matta , DO Primary Care Provider Active Anand Yusuf PA-C Attending Provider Active Threshing Machine Operator Relationship Specialty Start Date End Date Nisa Miranda CNP [address] [place] [address] PCP - General Family Medicine 09/22/22 Threshing Machine Operator Relationship Specialty Start Date End Date Nisa Miranda CNP [address] [place] [address] PCP - General Family Medicine 09/22/22 Threshing Machine Operator Relationship Specialty Start Date End Date Nisa Miranda CNP [address] [facility] [place] [address] PCP - General Family Medicine 09/22/22 Threshing Machine Operator Relationship Specialty Start Date End Date Nisa Miranda CNP [address] [place] [address] PCP - General Family Medicine 09/22/22 Team Status: Inactive Member Role Status Dates Vinayreji Escalerahomer , DO Primary Care Provider Active Anh Delcid NP Attending Provider Active Threshing Machine Operator Relationship Specialty Start Date End Date Nisa Miranda CNP [address] [facility] [place] [address] PCP - General Family Medicine 09/22/22 Threshing Machine Operator Relationship Specialty Start Date End Date Nisa Miranda LIGHT CLEANER [address] [facility] [place] [address] PCP - General Family Medicine 09/22/22 Threshing Machine Operator Relationship Specialty Start Date End Date Nisa Miranda CNP [address] [place] [address] PCP - General Family Medicine 09/22/22 Threshing Machine Operator Relationship Specialty Start Date End Date Nisa Miranda CNP [address] [place] [address] PCP - General Family Medicine 09/22/22 Threshing Machine Operator Relationship Specialty Start Date End Date Nisa Miranda CNP [address] [facility] [address] PCP - General Family Medicine 09/22/22 Threshing Machine Operator Relationship Specialty Start Date End Date Nisa Miranda CNP [address] [place] [address] PCP - General Family Medicine 09/22/22 Team Status: Inactive Member Role Status Dates Vinay Matta , DO Primary Care Provider Active Rafael Edouard MD Attending Provider Active Threshing Machine Operator Relationship Specialty Start Date End Date Nisa Miranda CNP [address] [facility] [address] PCP - General Family Medicine 09/22/22 Team Status: Inactive Member Role Status Dates Vinay Matta , DO Primary Care Provider Active Lamin Rose MD Emergency Provider Active Kimberly Arteaga MD Admit Provider, Attending Provider Active Krissy Easton DO Other Provider Active Team Status: Active Member Role Status Dates Vinay Matta , DO Primary Care Provider Active LINDY Amato Attending Provider Active Team Status: Inactive Member Role Status Dates Vinay Matta , DO Primary Care Provider Active LINDY Amato Attending Provider Active Threshing Machine Operator Relationship Specialty Start Date End Date Nisa Miranda [facility] [address] [facility] [address] PCP - General Family Medicine 09/22/22 Threshing Machine Operator Relationship Specialty Start Date End [place] [address] PCP - General Family Medicine 09/22/22 Threshing Machine Operator Relationship Specialty Start Date End Date Nisa Miranda CNP [address] [place] [address] PCP - General Family Medicine 09/22/22 Threshing Machine Operator Relationship Specialty Start Date End Date Nisa Miranda CNP [address] [place] [address] PCP - General Family Medicine 09/22/22 Goals (unrecognized section and content) Goals may be documented in a n alternate section Source Comments (unrecognize d section and content) In the event this informatio n is protected by the Federal Confidentiality of Alcohol and Drug Abuse Patient Records regulations: The Federal rules restrict any use of the information to criminally investigate or prosecute any alcohol or drug abuse patient.[facility] the event this information is protected by the Federal Confidentiality of Alcohol and Drug Abuse Patient Records regulations: The Federal rules restrict any use of the information to criminally investigate or prosecute any alcohol or drug abuse patient.[facility] the event this information is protected by the Federal Confidentiality of Alcohol and Drug Abuse Patient Records regulations: The Federal rules restrict any use of the information to criminally investigate or prosecute any alcohol or drug abuse patient.[facility] the event this information is protected by the Federal Confidentiality of Alcohol and Drug Abuse Patient Records regulations: The Federal rules restrict any use of the information to criminally investigate or prosecute any alcohol or drug abuse patient.[facility] the event this information is protected by the Federal Confidentiality of Alcohol and Drug Abuse Patient Records regulations: The Federal rules restrict any use of the information to criminally investigate or prosecute any alcohol or drug abuse patient.[facility] the event this information is protected by the Federal Confidentiality of Alcohol and Drug Abuse Patient Records regulations: The Federal rules restrict any use of the information to criminally investigate or prosecute any alcohol or drug abuse patient.[facility] the event this information is protected by the Federal Confidentiality of Alcohol and Drug Abuse Patient Records regulations: The Federal rules restrict any use of the information to criminally investigate or prosecute any alcohol or drug abuse patient.[facility] the event this information is protected by the Federal Confidentiality of Alcohol and Drug Abuse Patient Records regulations: The Federal rules restrict any use of the information to criminally investigate or prosecute any alcohol or drug abuse patient.[facility] the event this information is protected by the Federal Confidentiality of Alcohol and Drug Abuse Patient Records regulations: The Federal rules restrict any use of the information to criminally investigate or prosecute any alcohol or drug abuse patient.[facility] the event this information is protected by the Federal Confidentiality of Alcohol and Drug Abuse Patient Records regulations: The Federal rules restrict any use of the information to criminally investigate or prosecute any alcohol or drug abuse patient.[facility] the event this information is protected by the Federal Confidentiality of Alcohol and Drug Abuse Patient Records regulations: The Federal rules restrict any use of the information to criminally investigate or prosecute any alcohol or drug abuse patient.[facility] the event this information is protected by the Federal Confidentiality of Alcohol and Drug Abuse Patient Records regulations: The Federal rules restrict any use of the information to criminally investigate or prosecute any alcohol or drug abuse patient.[facility] the event this information is protected by the Federal Confidentiality of Alcohol and Drug Abuse Patient Records regulations: The Federal rules restrict any use of the information to criminally investigate or prosecute any alcohol or drug abuse patient.[facility] the event this information is protected by the Federal Confidentiality of Alcohol and Drug Abuse Patient Records regulations: The Federal rules restrict any use of the information to criminally investigate or prosecute any alcohol or drug abuse patient.[facility] the event this information is protected by the Federal Confidentiality of Alcohol and Drug Abuse Patient Records regulations: The Federal rules restrict any use of the information to criminally investigate or prosecute any alcohol or drug abuse patient.[facility]In the event this information is protected by the Federal Confidentiality of Alcohol and Drug Abuse Patient Records regulations: The Federal rules restrict any use of the information to criminally investigate or prosecute any alcohol or drug abuse patient.[facility] the event this information is protected by the Federal Confidentiality of Alcohol and Drug Abuse Patient Records regulations: The Federal rules restrict any use of the information to criminally investigate or prosecute any alcohol or drug abuse patient.[facility] HospitalIn the event this information is protected by the Federal Confidentiality of Alcohol and Drug Abuse Patient Records regulations: The Federal rules restrict any use of the information to criminally investigate or prosecute any alcohol or drug abuse patient.[facility] the event this information is protected by the Federal Confidentiality of Alcohol and Drug Abuse Patient Records regulations: The Federal rules restrict any use of the information to criminally investigate or prosecute any alcohol or drug abuse patient.[facility] HospitalIn the event this information is protected by the Federal Confidentiality of Alcohol and Drug Abuse Patient Records regulations: The Federal rules restrict any use of the information to criminally investigate or prosecute any alcohol or drug abuse patient.[facility] Reason for Visit (unrecogniz ed section and content) Reason Comments Anemia New patient consulta tion Reason Comments Results, Lab Reason Comments Benefits Investigation Reason Comments Anemia Specialty Diagnoses / Procedures Referred By Contac t Referred To Contact Diagnoses Iron deficiency anemia due to chronic blood loss Procedures IRON SUCROSE INJECTION PER 1 MG Delores Walker MD [address] [place] [address] [facility] [place] [address] Referral ID Status Reason Start Date Expiration Date V isits Requested Visits Authorized [id number] Waiting for Response 10/06/2022 01/04/2023 1 1 Referral ID Status Reason Start Date Expiration Date V isits Requested Visits Authorized [id number] Authorized 10/06/2022 11/15/2022 3 3 Reason Comments Results Reason Comments Anemia 1 month follow up Reason Comments Anemia Follow up Reason Comments Anemia 2 month follow up INFORMATION SOURCE (unrecogn ized section and content) DATE CREATED AUTHOR 03/30/2023 [facility] DATE CREATED AUTHOR AUTHOR'S ORGANIZ ATION 05/12/2023 [facility] DATE CREATED AUTHOR AUTHOR'S ORGANIZ ATION 10/27/2023 [facility] DATE CREATED AUTHOR AUTHOR'S ORGANIZ ATION 11/14/2023 [facility] DATE CREATED AUTHOR AUTHOR'S ORGANIZ ATION 12/25/2023 [facility] FOR RECORDS PERTAINING TO PATIENTS WHO ARE OR HAVE BEEN ENROLLED IN A CHEMICAL DEPENDENCY/SUBSTANCEABUSE PROGRAM, SOME INFORMATION MAY BE OMITTED. This clinical summary was aggregated from multiple sources. Caution should be exercised in using it in the provision of clinical care. This summary normalizes information from multiple sources, and as a consequence, information in this document may materially change the coding, format and clinical context of patient data. In addition, data may be omitted in some cases. CLINICAL DECISIONS SHOULD BE BASED ON THE PRIMARY CLINICAL RECORDS. [facility] [employer] [facility]. provides no warranty or guarantee of the accuracy or completeness of information in this document.
[2024-01-04 10:22] LABS: Estimated Average Glucose 163 mg/dL; Glycohemoglobin A1C 7.3 % (4.5-6.2)
[2024-01-04 10:39] LABS: Alanine Aminotransferase 23 U/L (14-59); Albumin Globulin Ratio 0.9; Albumin Level 3.2 g/dL (3.4-5.0); Alkaline Phosphatase 120 U/L (46-116); Anion Gap 16.3; Aspartate Amino Transferase 21 U/L (15-37); Bilirubin Total 0.4 mg/dL (0.2-1.0); Calcium 8.9 mg/dL (8.5-10.1); Carbon Dioxide 27.3 mmol/L (21.0-32.0); Chloride 108 mmol/L (98-107); Chol HDL Ratio 2.7; Cholesterol 125 mg/dL (<=200); Estimated GFR (African America 38 (>=60); Estimated GFR (Non-African Ame 31 (>=60); Globulin 3.5 g/dL; Glucose 155 mg/dL (74-106); HDL Cholesterol 47 mg/dL (40-60); LDL Cholesterol Calculated 57.4 mg/dL; Potassium 4.6 mmol/L (3.5-5.1); Sodium 147 mmol/L (136-145); Total Protein 6.7 g/dL (6.4-8.2); Triglycerides 103 mg/dL (<=150); VLDL CHOLESTEROL 20.6 mg/dL
== END 2024-01-04 09:56 | disposition home or self-care (01) ==
LOC: LAB 09:55
PROVIDERS: PCP Family Medicine; Visit Provider Family Medicine
DX: Z79.899 Other long term (current) drug therapy (principal); N18.30 Chronic kidney disease, stage 3 unspecified; E11.65 Type 2 diabetes mellitus with hyperglycemia; E78.2 Mixed hyperlipidemia; I12.9 Hypertensive chronic kidney disease with stage 1 through stage 4 chronic kidney disease, or unspecified chronic kidney disease
CPT/HCPCS: 36415; 80053; 80061; 83036

== ENCOUNTER 2024-01-21 01:45 | Emergency (ER) | payer OTHER, SELFPAY ==
[2024-01-21 01:48] VITALS: BP 148/81; PULSE 89; RESP 18; TEMP 36.7; O2SAT 95; BMI 37.4
--- OUTSIDE RECORDS SUMMARY | 2024-01-21 01:54 | XMS_ITS | CCD ---
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 Name Role Phone Vinay Matta Primary Care Provider Vinay Matta Attending Provider VINAY MATTA R Primary Care Physician Bunting, DO Vinay Primary Care Provider [phone] Bunting, DO Vinay Attending Provider Bunting, DO Mclean Referring Provider Self, Referral Attending Provider Unavailable Bunting, DO Vinay Primary Care Provider Bunting, DO Vinay Attending Provider TROY Yusuf Emergency Provider TROY Yusuf Attending Provider Ruth [facility] Primary Care Provider Ruth [facility] Primary Care Provider Bunting, DO Vinay Primary Care Provider [phone] TROY Yusuf Emergency Provider TROY Yusuf Attending Provider Bunhomer, DO Mclean Attending Provider STARR Delcid Attending Provider Anh Delcid Unavailable Bunting, DO Vinay Primary Care Provider MD Rafael Edouard Attending Provider Bunting, DO Mclean Primary Care Provider MD Rafael Edouard Attending Provider Bunting, DO Mclean Attending Provider [phone] MD Lamin Rose Emergency Provider MD Kimberly Arteaga Admit Provider MD Kimberly Arteaga Attending Provider [phone] DO Krissy Easton Other Provider Conner [facility] Georgina Attending Provider [phone] BUNTING, DR MCLEAN Admitting Unavailable BUNTING, DR MCLEAN Attending Unavailable BUNTING, DR MCLEAN Primary Care Unavailable BUNTING, DR MCLEAN Consulting Unavailable SALAM, GOMEZ Admitting Unavailable SALAM, JASON Attending Unavailable BUNTING, DR MCLEAN Primary Care Unavailable SALAM, JASON Consulting Unavailable BUNTING, DR MCLEAN Admitting Unavailable [...] Unavailable Bunting, DO Mclean Primary Care Provider Bunting, DO Mclean Attending Provider [phone] Bunting, DO Mclean Primary Care Provider [phone] Bunting, DO Mclean Attending Provider STARR Delcid Attending Provider ABHYANKAR, BELKIS Referring Unavailable RUTH, NISA Primary Care Unavailable DAKSHA BRIDGES Attending Unavailable ABHYANKAR, BELKIS Referring Unavailable RUTH, NISA Primary Care Unavailable ABHYANKAR, BELKIS Referring Unavailable RUTH, NISA Primary Care Unavailable DAKSHA BRIDGES Attending Unavailable ABHYANKAR, BELKIS Referring Unavailable RUTH, NISA Primary Care Unavailable DAKSHA BRIDGES Attending Unavailable RUTH, NISA Primary Care Unavailable RUTH, NISA Primary Care Unavailable CYRUSDAKSHA M Attending Unavailable RUTH, NISA Primary Care Unavailable RUTH, NISA Primary Care Unavailable DEANNEAMBRENDENU DELORES Referring Unavailable RUTH, NISA Primary Care Unavailable [...] Care Unavailable Bunting, Vinay Primary Care Unavailable EdouardRafael Attending Unavailable Edouard, Rafael Admitting Unavailable Arteaga, Kimberly Admitting Unavailable Arteaga, Kimberly Attending Unavailable Bunting, Vinay Primary Care Unavailable Krissy Easton Consulting Unavailable Bunting, Vinay Primary Care Unavailable Bunting, Vinay Attending Unavailable Bunting, Vinay Admitting Unavailable Bunting, Vinay Primary Care Unavailable Delcid, Anh Admitting Unavailable Delcid, Anh Attending Unavailable RYAN, TAD A Attending Unavailable Unavailable Unavailable Unavailable Allergies Allergy Classification Reported Allergen(s) Allergy Type Date of Onset Reaction(s) Facility (20 sources) Acetaminophen / Codeine; Translations: [acetaminophen-co deine] Drug Allergy 2 Upset stomach (finding), Other: See Comments [facility] Comment on above: pt states she is unw illing to try even plain tylenol after this experience even though she states she took tylenol prior to this and had no problems (20 sources) Codeine; Translations: [codeine] Drug Allergy 7 Other: See Comments [facility] (3 sources) Acetaminophen / Codeine; Translations: [Tylenol with Codeine #3] Drug Allergy Unknown [facility] Repository (1 source) traMADol Drug Allergy [facility] Repository (1 source) Acetaminophen / Codeine; Translations: [ACETAMINOPHEN-CO DEINE] Drug Allergy 2 [facility] Repository (1 source) Acetaminophen Drug Allergy 3 [facility] Repository Medications Current Medications Medication Drug Class(es) Dates Sig (Normalized) Sig (Original) allopurinol 100 mg oral tablet (20 sources) Xanthine Oxidase Inhibitor Start: 01-21-2022 take 1 tablet by mouth twice daily allopurinol 100 mg Tab 100 mg = 1 tab(s), Oral, BID, # 60 tab(s), Refills(s) 0, Pharmacy: [facility], 165, cm, 01/19/22 22:12:00 EST, Height/Length [...] Daily, # 30 tab(s), Refills(s) 0, Pharmacy: [facility], 165, cm, 01/19/22 22:12:00 EST, Height/Length [...] Daily, # 30 tab(s), Refills(s) 0, Pharmacy: [facility], 165, cm, 01/19/22 22:12:00 EST, Height/Length [...] Start: 01-20-2022 take 1 tablet by oleg th once daily cholecalciferol 1000 intl units oral [...] 26, 2017 12:00am take 1 capsule by [facility] once daily at bedtime gabapentin (NEURONTIN) 300 [...] tab(s), Oral, Daily, 30 tab(s), Refill(s) 0, [facility], 165, cm, 01/19/22 22:12:00 EST, Height/Length [...] Start: 01-21-2022 take 2 tablets by mo [facility] at bedtime ropinirole 0.5 mg Tab 1 mg = 2 tab(s), Oral, Bedtime, Refills(s) 0, Other (see comment) Start Date: 01/21/22 Status: Ordered take 1 tablet by oleg th twice daily rOPINIRole (REQUIP) 0.5 mg tablet Take 0.5 mg by mouth twice daily. 0 Active take 1 tablet by oleg th once daily at bedtime rOPINIRole (REQUIP) 0.5 [...] above: Take 1 tablet by oleg th every afternoon. vitamin B12 (11 sources) Vitamin B12 Start: 04-15-2023 Vitamin B12 Refills(s) 0 Start Date: 04/15/23 Status: Ordered Start: 03-13-2023 take 1 tablet by oleg th once daily Cyanocobalamin (Vitamin B-12) (Vitamin B-12) [...] Drug Class(es) Dates Sig (Normalized) Sig (Original) [id number] 200 actuat albuterol 0.09 mg/actuat metered dose [...] oral tablet (2 sources) Penicillin-class Antibacterial Start: take 1 tablet by mouth every twelve [...] tab(s), Oral, Daily, 150 tab(s), Refill(s) 0, [facility], 160, cm, 12/24/22 10:14:00 EST, Height/Length [...] Start: 02-03-2023 take 1 tablet by oleg once daily MAGNESIUM OXIDE ORAL Take 1 tablet by mouth once daily. 0 02/03/2023 Active Start: 02-03-2023 take 1 tablet by oleg th twice daily magnesium oxide (MAG-OX) 400 mg (241.3 mg magnesium) tablet Take 1 tablet by mouth twice daily. 0 02/03/2023 Active Comment on above: Take 1 tablet by oleg th twice daily. Take 1 tablet by oleg th once daily. LOCO, HONEY, 100 % pste (10 sources) Start: 12-01-2022 MEDIHOMIKAYLA, HONEY, 100 % pste APPLY A THIN [...] 09-10-2022 Episodic Other aftercare (1 source) Other fci (current) drug therapy; Translations: [[facility] CURRENT DRUG THERAPY] Onset: 09-10-2022 Episodic Other [...] Range Facility [facility] 11-05-2023 Lab Reports [id number] Munir [facility] CNPNon 10-26-2023 JENYN Telephone (HEMASA) ANH TEJEDA ([id number]) 1950 F Date Time Provider Department 10/26/23 SAMANTHA MCMAHAN During your visit today, we [...] Status:Closed by SAMANTHA MCMAHAN on 10/26/23 Normal [facility] CBC W Auto Differential pane l (Bld)on 10-23-2023 Basophils (Bld) [#/Vol] 0.03 10*3/uL Normal <0.11 [facility] Comment on above: Order Comment: Speci men Type: BLOOD SPECIMEN Ordering Facility: [facility] Address: [address] [place] [id number] Performed By: #### 5 0190-8, 2276-4 #### [facility] CLIA [id number] [address] [place] [address] [place] Basophils/100 WBC (Bld) 0.3 % Normal [facility] Comment on above: Order Comment: Speci men Type: BLOOD SPECIMEN Ordering Facility: [facility] Address: [address] [place] [address] Performed By: #### 5 0190-8, 2276-02 #### [facility] CLIA [id number] [address] [place] [address] [place] Differential cell count method Nom (Bld) Auto Normal [facility] Comment on above: Order Comment: Speci men Type: BLOOD SPECIMEN Ordering Facility: [facility] Address: [address] [place], [place] [id number] Performed By: #### 5 0190-8, 2276-02 #### [facility] CLIA [id number] [address] [place] [address] [place] Eosinophils (Bld) [#/Vol] 0.03 10*3/uL Normal <0.46 [facility] Comment on above: Order Comment: Speci men Type: BLOOD SPECIMEN Ordering Facility: [facility] Address: [address] [place], [place] [id number] Performed By: #### 5 0190-8, 2276-02 #### [facility] CLIA [id number] [address] [place] [address] [place] Eosinophils/100 WBC (Bld) 0.3 % Normal [facility] Comment on above: Order Comment: Speci men Type: BLOOD SPECIMEN Ordering Facility: [facility] Address: [address] [place] [address] Performed By: #### 5 0190-8, 2276-02 #### [facility] CLIA [id number] [address] [place] [address] [place] Erythrocyte distribution width (RBC) [Ratio] 16.0 % High 11.5-15.0 [facility] Comment on above: Order Comment: Speci men Type: BLOOD SPECIMEN Ordering Facility: [facility] Address: [address] [place] [address] Performed By: #### 5 0190-8, 2275-4 #### [facility] CLIA [id number] [address] [place] [address] [place] Hematocrit (Bld) [Volume fraction] 32.5 % Low 36.0-46.0 [facility] Comment on above: Order Comment: Speci men Type: BLOOD SPECIMEN Ordering Facility: [facility] Address: [address] Performed By: #### 5 0190-8, 2275-4 #### [facility] CLIA [id number] [address] [place] [address] [place] Hemoglobin (Bld) [Mass/Vol] 10.7 g/dL Low 11.5-15.5 [facility] Comment on above: Order Comment: Speci men Type: BLOOD SPECIMEN Ordering Facility: [facility] Address: [address] Performed By: #### 5 0190-8, 2276-02 #### [facility] CLIA [id number] [address] [place] [address] [place] Immature granulocytes (Bld) [#/Vol] 0.13 10*3/uL High <0.10 [facility] Comment on above: Order Comment: Speci men Type: BLOOD SPECIMEN Ordering Facility: [facility] Address: [address] [place] [address] Performed By: #### 5 0190-8, 2275- #### [facility] CLIA [id number] [address] [place] [address] [place] Immature granulocytes/100 WBC (Bld) 1.2 % Normal [facility] Comment on above: Order Comment: Speci men Type: BLOOD SPECIMEN Ordering Facility: [facility] Address: [address] [place] [id number] Performed By: #### 5 0190-8, 2275- #### [facility] CLIA [id number] [address] [place] [address] [place] Lymphocytes (Bld) [#/Vol] 1.31 10*3/uL Normal 1.00-4.00 [facility] Comment on above: Order Comment: Speci men Type: BLOOD SPECIMEN Ordering Facility: [facility] Address: [address] [place] [address] Performed By: #### 5 0190-8, 2276-02 #### [facility] CLIA [id number] [address] [place] [address] [place] Lymphocytes/100 WBC (Bld) 12.1 % Normal [facility] Comment on above: Order Comment: Speci men Type: BLOOD SPECIMEN Ordering Facility: [facility] Address: [address] [place], [place] [id number] Performed By: #### 5 0190-8, 2276-02 #### [facility] CLIA [id number] [address] [place] [address] [place] MCH (RBC) [Entitic mass] 28.2 pg Normal 26.0-34.0 [facility] Comment on above: Order Comment: Speci men Type: BLOOD SPECIMEN Ordering Facility: [facility] Address: [address] [place], [place] [id number] Performed By: #### 5 0190-8, 2276-02 #### [facility] CLIA [id number] [address] [place] [address] [place] MCHC (RBC) [Mass/Vol] 32.9 g/dL Normal 30.5-36.0 [facility] Comment on above: Order Comment: Speci men Type: BLOOD SPECIMEN Ordering Facility: [facility] Address: [address] [place], [place] [id number] Performed By: #### 5 0190-8, 2276-02 #### [facility] CLIA [id number] [address] [place] [address] [place] MCV (RBC) [Entitic vol] 85.8 fL Normal 80.0-100.0 [facility] Comment on above: Order Comment: Speci men Type: BLOOD SPECIMEN Ordering Facility: [facility] Address: [address] [place] [address] Performed By: #### 5 0190-8, 2276-02 #### [facility] CLIA [id number] [address] [place] [address] [place] Monocytes (Bld) [#/Vol] 0.37 10*3/uL Normal <0.87 [facility] Comment on above: Order Comment: Speci men Type: BLOOD SPECIMEN Ordering Facility: [facility] Address: [address] [place] [address] Performed By: #### 5 0190-8, 2276-02 #### [facility] CLIA [id number] [address] [place] [address] [place] Monocytes/100 WBC (Bld) 3.4 % Normal [facility] Comment on above: Order Comment: Speci men Type: BLOOD SPECIMEN Ordering Facility: [facility] Address: [address] [place] [address] Performed By: #### 5 0190-8, 2276-02 #### [facility] CLIA [id number] [address] [place] [address] [place] Neutrophils (Bld) [#/Vol] 8.95 10*3/uL High 1.45-7.50 [facility] Comment on above: Order Comment: Speci men Type: BLOOD SPECIMEN Ordering Facility: [facility] Address: [address] [place] [address] Performed By: #### 5 0190-8, 2276-02 #### [facility] CLIA [id number] [address] [place] [address] [place] Neutrophils/100 WBC (Bld) 82.7 % Normal [facility] Comment on above: Order Comment: Speci men Type: BLOOD SPECIMEN Ordering Facility: [facility] Address: [address] [place], [place] [id number] Performed By: #### 5 0190-8, 2275-4 #### [facility] CLIA [id number] [address] [place] [address] [place] Nucleated RBC (Bld) [#/Vol] 10*3/uL Normal <0.01 [facility] Comment on above: Order Comment: Speci men Type: BLOOD SPECIMEN Ordering Facility: [facility] Address: [address] [place], [place] [id number] Performed By: #### 5 0190-8, 2275-4 #### [facility] CLIA [id number] [address] [place] [address] [place] Nucleated RBC/100 WBC (Bld) [Ratio] 0.0 /100 WBC Normal [facility] Comment on above: Order Comment: Speci men Type: BLOOD SPECIMEN Ordering Facility: [facility] Address: [address] [place], [place] [id number] Performed By: #### 5 0190-8, 2275- #### [facility] CLIA [id number] [address] [place] [address] [place] Platelet mean volume (Bld) [Entitic vol] 9.0 fL Normal 9.0-12.7 [facility] Comment on above: Order Comment: Speci men Type: BLOOD SPECIMEN Ordering Facility: [facility] Address: [address] [place], [place] [id number] Performed By: #### 5 0190-8, 2275- #### [facility] CLIA [id number] [address] [place] [address] [place] Platelets (Bld) [#/Vol] 175 10*3/uL Normal 150-400 [facility] Comment on above: Order Comment: Speci men Type: BLOOD SPECIMEN Ordering Facility: [facility] Address: [address] Performed By: #### 5 0190-8, 4 #### [facility] CLIA [id number] [facility] [place] [address] [place] RBC (Bld) [#/Vol] 3.79 10*6/uL Low 3.90-5.20 [facility] Comment on above: Order Comment: Speci men Type: BLOOD SPECIMEN Ordering Facility: [facility] Address: [address] [place] [address] Performed By: #### 5 0190-8, 2276-02 #### [facility] CLIA [id number] [address] [place] [address] [place] WBC (Bld) [#/Vol] 10.82 10*3/uL Normal 3.70-11.00 [facility] Comment on above: Order Comment: Speci men Type: BLOOD SPECIMEN Ordering Facility: [facility] Address: [address] [place] [address] Performed By: #### 5 0190-8, 4 #### [facility] CLIA [id number] [address] [place] [address] [place] CNOVSPon 10-23-2023 CNOVSP Visit (SP) Office (H EMASA) ANH TEJEDA ([id number]) 1950 F Date Time Provider Department 10/23/23 2:30 PM DAKSHA BRIDGES During your visit today, we recorded the following information about you: Temperature Pulse Respiration Blood pressure 97.2 degrees 86/minute 16/minute 141/59 Weight Height 96.8 kg 1.58 m Daksha Bridges PA-C 10/23/2023 3:25 PM Signed PATIENT NAME: Anh Tejeda CLINIC NO.: [id number] ATTENDING PHYSICIAN: Delores Walker MD DATE OF [...] Date Value (more content not included)... Normal [facility] Comprehensive metabolic 2000 panelon 10-23-2023 Albumin [Mass/Vol] 4.4 g/dL Normal 3.9-4.9 [facility] Comment on above: Order Comment: Speci men Type: BLOOD SPECIMEN Ordering Facility: [facility] Address: [address] Performed By: #### 5 0190-8, 2275-4 #### [facility] CLIA [id number] [address] [place] [address] [place] ALP [Catalytic activity/Vol] 112 U/L Normal 34-123 [facility] Comment on above: Order Comment: Speci men Type: BLOOD SPECIMEN Ordering Facility: [facility] Address: [address] Performed By: #### 5 0190-8, 2275-4 #### [facility] CLIA [id number] [address] [place] [address] [place] ALT [Catalytic activity/Vol] 16 U/L Normal 7-38 [facility] Comment on above: Order Comment: Speci men Type: BLOOD SPECIMEN Ordering Facility: [facility] Address: [address] Performed By: #### 5 0190-8, 2275-4 #### [facility] CLIA [id number] [address] [place] [address] [place] Anion gap [Moles/Vol] 13 mmol/L Normal 9-18 [facility] Comment on above: Order Comment: Speci men Type: BLOOD SPECIMEN Ordering Facility: [facility] Address: [address] Performed By: #### 5 0190-8, 2275- #### [facility] CLIA [id number] [address] [place] [address] [place] AST [Catalytic activity/Vol] 20 U/L Normal 13-35 [facility] Comment on above: Order Comment: Speci men Type: BLOOD SPECIMEN Ordering Facility: [facility] Address: [address] [place] [address] Performed By: #### 5 0190-8, 2275- #### [facility] CLIA [id number] [address] [place] [address] [place] Bilirubin [Mass/Vol] 0.3 mg/dL Normal 0.2-1.3 [facility] Comment on above: Order Comment: Speci men Type: BLOOD SPECIMEN Ordering Facility: [facility] Address: [address] [place] [address] Performed By: #### 5 0190-8, 2276-02 #### [facility] CLIA [id number] [address] [place] [address] [place] Calcium [Mass/Vol] 9.8 mg/dL Normal 8.5-10.2 [facility] Comment on above: Order Comment: Speci men Type: BLOOD SPECIMEN Ordering Facility: [facility] Address: [address] [place] [address] Performed By: #### 5 0190-8, 2276-02 #### [facility] CLIA [id number] [address] [place] [address] [place] Chloride [Moles/Vol] 99 mmol/L Normal 97-105 [facility] Comment on above: Order Comment: Speci men Type: BLOOD SPECIMEN Ordering Facility: [facility] Address: [address] [place] [address] Performed By: #### 5 0190-8, 2275- #### [facility] CLIA [id number] [address] [place] [address] [place] CO2 [Moles/Vol] 28 mmol/L Normal 22-30 [facility] Comment on above: Order Comment: Patricia men Type: BLOOD SPECIMEN Ordering Facility: [facility] Address: [address] [place] [address] Performed By: #### 5 0190-8, 2275-4 #### [facility] CLIA [id number] [address] [place] [address] [place] Creatinine [Mass/Vol] 1.61 mg/dL High 0.58-0.96 [facility] Comment on above: Order Comment: Alexii men Type: BLOOD SPECIMEN Ordering Facility: [facility] Address: [address] [place] [address] Performed By: #### 5 0190-8, 2275- #### [facility] CLIA [id number] [address] [place] [address] [place] Creatinine and Glomerular filtration rate.predicted panel (S/P/Bld) 33 mL/min/1.73m??? Low >=60 [facility] Comment on above: Order Comment: Patricia tarango Type: BLOOD SPECIMEN Ordering Facility: [facility] Address: [address] [place] [address] Result Comment: Maru mated Glomerular Filtration Rate [...] Performed By: #### 5 0190-8, 2275- #### [facility] CLIA [id number] [address] [place] [address] [place] Glucose [Mass/Vol] 167 mg/dL High 74-99 [facility] Comment on above: Order Comment: Alexii men Type: BLOOD SPECIMEN Ordering Facility: [facility] Address: [address] [place] [address] Result Comment: The [place] [employer] (ADA) provides guidance for cutoff [...] Standards of Medical Care in Diabetes 2016, [place] [employer]. Diabetes Care. 2016.39(Suppl 1). Performed By: #### 5 0190-8, 2275- #### [facility] CLIA [id number] [address] [place] [address] [place] Potassium [Moles/Vol] 4.7 mmol/L Normal 3.7-5.1 [facility] Comment on above: Order Comment: Speci men Type: BLOOD SPECIMEN Ordering Facility: [facility] Address: [address] [place] [address] Performed By: #### 5 0190-8, 2276-02 #### [facility] CLIA [id number] [address] [place] [address] [place] Protein [Mass/Vol] 7.3 g/dL Normal 6.3-8.0 [facility] Comment on above: Order Comment: Speci men Type: BLOOD SPECIMEN Ordering Facility: [facility] Address: [address] [place] [address] Performed By: #### 5 0190-8, 2276-02 #### [facility] CLIA [id number] [address] [place] [address] [place] Sodium [Moles/Vol] 140 mmol/L Normal 136-144 [facility] Comment on above: Order Comment: Speci men Type: BLOOD SPECIMEN Ordering Facility: [facility] Address: [address] Performed By: #### 5 0190-8, 2275-4 #### [facility] CLIA [id number] [address] [place] [address] [place] Urea nitrogen [Mass/Vol] 48 mg/dL High 7-21 [facility] Comment on above: Order Comment: Speci men Type: BLOOD SPECIMEN Ordering Facility: [facility] Address: [address] [place] [address] Performed By: #### 5 0190-8, 2275-4 #### [facility] CLIA [id number] [address] [place] [address] [place] Ferritin SerPl-mCncon 2022 Ferritin [Mass/Vol] 120.0 ng/mL Normal 14.7-205.1 [facility] Comment on above: Order Comment: Speci men Type: BLOOD SPECIMEN Ordering Facility: [facility] Address: [address] [place] [address] Performed By: #### 5 0190-8, 2275-4 #### [facility] CLIA [id number] [address] [place] [address] [place] Iron and Iron binding capaci ty panelon 10-23-2023 Iron [Mass/Vol] 67 ug/dL Normal 41-186 [facility] Comment on above: Order Comment: Speci men Type: BLOOD SPECIMEN Ordering Facility: [facility] Address: [address] [place] [address] Performed By: #### 5 0190-8, 2275-4 #### [facility] CLIA [id number] [address] [place] [address] [place] Iron binding capacity [Mass/Vol] 371 ug/dL Normal 232-386 [facility] Comment on above: Order Comment: Speci men Type: BLOOD SPECIMEN Ordering Facility: [facility] Address: [address] [place] [address], [place] [address] Performed By: #### 5 0190-8, 2276-4 #### [facility] CLIA [id number] [address] [place] [address] [place] Iron/TIBC [Molar ratio] 18.1 % Normal 15.0-57.0 [facility] Comment on above: Order Comment: Speci men Type: BLOOD SPECIMEN Ordering Facility: [facility] Address: [address] [place] [address] Performed By: #### 5 0190-8, 2276-4 #### [facility] CLIA [id number] [facility] [place] [address] [place] A1C with Estimated Average G luon 09-05-2023 Glucose [Mass/Vol] 192 mg/dL Normal [facility] Comment on above: Result Comment: PERF ORMED BY: [place] [address] PATHOLOGIST BAD WORK GATHERER THERESA MULLER M.D. Performed By: #### L IPID, CMP, A1C WT eA, CBC #### [facility] [address] HbA1c (Bld) [Mass fraction] 8.3 % High 4.3-5.6 [facility] Comment on above: Result Comment: Incr eased risk for diabetes: 5.7 - 6.4 diabetes: >6.4 glycemic control for adults with diabetes: <7.0 Performed By: #### L IPID, CMP, A1C WTH eA, CBC #### [facility] [address] Alanine aminotransferase [En zymatic activity/volume] in Serum or PlasmaOrdered By: Vinay Bunting on 09-05-2023 ALT [Catalytic activity/Vol] 24 U/L [facility] Albumin [Mass/volume] in Ser um or Plasma by Bromocresol green (BCG) dye binding methoOrdered By: Vinay Bunting on 09-05-2023 Albumin BCG dye [Mass/Vol] 4.2 g/dL 3.5-5.7 [facility] Alkaline phosphatase [Enzyma tic activity/volume] in Serum or PlasmaOrdered By: Vinay Bunting on 09-05-2023 ALP [Catalytic activity/Vol] 105 U/L 34-104 [facility] Aspartate aminotransferase [ Enzymatic activity/volume] in Serum or PlasmaOrdered By: Vinay Bunting on 09-05-2023 AST [Catalytic activity/Vol] 24 U/L 13-39 [facility] Basophils Auto (Bld) [#/Vol] Ordered By: Vinay Bunting on 09-05-2023 Basophils (Bld) [#/Vol] 0.0 10*3/uL 0.0-0.2 [facility] Basophils/100 WBC Auto (Bld) Ordered By: Vinay Bunting on 09-05-2023 Basophils/100 WBC (Bld) 0.5 % . [facility] Bilirubin.total [Mass/volume ] in Serum or PlasmaOrdered By: Vinay Bunting on 09-05-2023 Bilirubin [Mass/Vol] 0.5 mg/dL 0.3-1.0 [facility] Calcium [Mass/volume] in Ser um or PlasmaOrdered By: Vinay Bunting on 09-05-2023 Calcium [Mass/Vol] 9.1 mg/dL 8.6-10.3 [facility] Carbon dioxide, total [Moles /volume] in Serum or PlasmaOrdered By: Vinay Bunting on 09-05-2023 CO2 [Moles/Vol] 29.2 mmol/L 21.0-31.0 [facility] Chloride [Moles/volume] in S hilda or PlasmaOrdered By: Vinay Bunting on 09-05-2023 Chloride [Moles/Vol] 103 mmol/L 98-107 [facility] Cholesterol [Mass/volume] in Serum or PlasmaOrdered By: Vinay Bunting on 09-05-2023 Cholesterol [Mass/Vol] 116 mg/dL 140-200 [facility] Comment on above: Chol less than 200 m g/dl low riskChol 201-239 mg/dl borderline riskChol 240 mg/dl and greater high risk Cholesterol in LDL Calc [Mas s/Vol]Ordered By: Vinay Matta on 09-05-2023 Cholesterol in LDL [Mass/Vol] 55 mg/dL 0-100 [facility] Comment on above: LDL ATP III CLASSIFI CATIONLDL less than 100 mg/dL OptimalLDL 100-129 mg/dL Near or above optimalLDL 130-159 mg/dL Borderline highLDL 160-189 mg/dL HighLDL greater than 189 mg/dL Very high Cholesterol in VLDL Calc [Ma ss/Vol]Ordered By: Vinay Matta on 09-05-2023 Cholesterol in VLDL [Mass/Vol] 18 mg/dL [facility] Complete Blood Count Auto Di ffon 09-05-2023 Basophils (Bld) [#/Vol] 0.0 10*3/uL Normal 0.0-0.2 [facility] Comment on above: Result Comment: PERF ORMED BY: [place] [address] PATHOLOGIST BAD WORK GATHERER THERESA MULLER M.D. Performed By: #### L IPID, CMP, A1C WTH eA, CBC #### [facility] [address] [place] [address] [place] Basophils/100 WBC (Bld) 0.5 % Normal . [facility] Comment on above: Performed By: #### L IPID, CMP, A1C WTH eA, CBC #### [facility] [address] [place] [address] [place] Eosinophils (Bld) [#/Vol] 0.1 10*3/uL Normal 0.0-0.45 [facility] Comment on above: Performed By: #### L IPID, CMP, A1C WTH eA, CBC #### [facility] [address] [place] [address] [place] Eosinophils/100 WBC (Bld) 2.7 % Normal . [facility] Comment on above: Performed By: #### L IPID, CMP, A1C WTH eA, CBC #### [facility] [address] [place] [address] [place] Erythrocyte distribution width (RBC) [Ratio] 17.2 % High 11.9-15.3 [facility] Comment on above: Performed By: #### L IPID, CMP, A1C WTH eA, CBC #### [address] Hematocrit (Bld) [Volume fraction] 31.6 % Low 34.0-46.4 [facility] Comment on above: Performed By: #### L IPID, CMP, A1C WTH eA, CBC #### [address] Hemoglobin (Bld) [Mass/Vol] 11.0 g/dL Low 11.8-15.4 [facility] Comment on above: Performed By: #### L IPID, CMP, A1C WTH eA, CBC #### [address] Lymphocytes (Bld) [#/Vol] 1.5 10*3/uL Normal 1.00-4.8 [facility] Comment on above: Performed By: #### L IPID, CMP, A1C WTH eA, CBC #### [address] Lymphocytes/100 WBC (Bld) 28.2 % Normal . [facility] Comment on above: Performed By: #### L IPID, CMP, A1C WTH eA, CBC #### [address] MCH (RBC) [Entitic mass] 29.1 pg Normal 24.7-34.3 [facility] Comment on above: Performed By: #### L IPID, CMP, A1C WTH eA, CBC #### [place] [address] [place] MCV (RBC) [Entitic vol] 83.3 fL Normal 80-100 [facility] Comment on above: Performed By: #### L IPID, CMP, A1C WTH eA, CBC #### [address] Mean Corpuscular HGB Conc 34.9 g/dL Normal 32.0-35.0 [facility] Comment on above: Performed By: #### L IPID, CMP, A1C WTH eA, CBC #### [facility] [address] [place] [address] [place] Monocytes (Bld) [#/Vol] 0.3 10*3/uL Normal 0.0-0.8 [facility] Comment on above: Performed By: #### L IPID, CMP, A1C WTH eA, CBC #### [facility] [address] [place] [address] [place] Monocytes/100 WBC (Bld) 5.0 % Normal . [facility] Comment on above: Performed By: #### L IPID, CMP, A1C WTH eA, CBC #### [facility] [address] [place] [address] [place] Neutrophils (Bld) [#/Vol] 3.4 10*3/uL Normal 1.8-7.7 [facility] Comment on above: Performed By: #### L IPID, CMP, A1C WTH eA, CBC #### [facility] [address] [place] [address] Neutrophils/100 WBC (Bld) 63.6 % Normal . [facility] Comment on above: Performed By: #### L IPID, CMP, A1C WTH eA, CBC #### [facility] [address] [place] [address] [place] NRBC% 0.0 /100{WBC} Normal 0-0.5 [facility] Comment on above: Performed By: #### L IPID, CMP, A1C WTH eA, CBC #### [facility] [address] [place] [address] [place] Platelet mean volume (Bld) [Entitic vol] 7.3 fL Normal 6.3-10.7 [facility] Comment on above: Performed By: #### L IPID, CMP, A1C WTH eA, CBC #### [facility] [address] [place] [address] [place] Platelets (Bld) [#/Vol] 150 10*3/uL Normal 150-450 [facility] Comment on above: Performed By: #### L IPID, CMP, A1C WTH eA, CBC #### [facility] [address] RBC (Bld) [#/Vol] 3.79 10*6/uL Normal 3.60-5.00 [facility] Comment on above: Performed By: #### L IPID, CMP, A1C WTH eA, CBC #### [facility] [address] WBC (Bld) [#/Vol] 5.3 10*3/uL Normal 3.8-11.6 [facility] Comment on above: Performed By: #### L IPID, CMP, A1C WTH eA, CBC #### [facility] [address] Comprehensive Metabolic Pane palmer 09-05-2023 Albumin [Mass/Vol] 4.2 g/dL Normal 3.5-5.7 [facility] Comment on above: Order Comment: FASTI NG Performed By: #### L IPID, CMP, A1C WTH eA, CBC #### [facility] [address] [place] [address] Albumin/Globulin [Mass ratio] 1.9 {ratio} Normal [facility] Comment on above: Order Comment: FASTI NG Performed By: #### L IPID, CMP, A1C WTH eA, CBC #### [facility] [address] [place] [address] ALP [Catalytic activity/Vol] 105 U/L High 34-104 [facility] Comment on above: Order Comment: FASTI NG Performed By: #### L IPID, CMP, A1C WTH eA, CBC #### [facility] [address] [place] [address] ALT [Catalytic activity/Vol] 24 U/L Normal 7-52 [facility] Comment on above: Order Comment: FASTI NG Performed By: #### L IPID, CMP, A1C WTH eA, CBC #### [facility] [address] [place] [address] Anion gap [Moles/Vol] 13.8 mmol/L Normal 6.0-15.0 [facility] Comment on above: Order Comment: FASTI NG Performed By: #### L IPID, CMP, A1C WTH eA, CBC #### [facility] [address] AST [Catalytic activity/Vol] 24 U/L Normal 13-39 [facility] Comment on above: Order Comment: FASTI NG Performed By: #### L IPID, CMP, A1C WTH eA, CBC #### [facility] [address] [place] [address] [place] Bilirubin [Mass/Vol] 0.5 mg/dL Normal 0.3-1.0 [facility] Comment on above: Order Comment: FASTI NG Performed By: #### L IPID, CMP, A1C WTH eA, CBC #### [facility] [address] Calcium [Mass/Vol] 9.1 mg/dL Normal 8.6-10.3 [facility] Comment on above: Order Comment: FASTI NG Performed By: #### L IPID, CMP, A1C WTH eA, CBC #### [facility] [address] Chloride [Moles/Vol] 103 mmol/L Normal 98-107 [facility] Comment on above: Order Comment: FASTI NG Performed By: #### L IPID, CMP, A1C WTH eA, CBC #### [facility] [address] CO2 [Moles/Vol] 29.2 mmol/L Normal 21.0-31.0 [facility] Comment on above: Order Comment: FASTI NG Performed By: #### L IPID, CMP, A1C WTH eA, CBC #### [facility] [address] [place] [address] [place] Creatinine [Mass/Vol] 1.67 mg/dL High 0.60-1.20 [facility] Comment on above: Order Comment: FASTI NG Performed By: #### L IPID, CMP, A1C WTH eA, CBC #### [facility] [address] [place] [address] [place] GFR/1.73 sq M.predicted MDRD (S/P/Bld) [Vol rate/Area] 31.949 mL/min/{1.73_m2} [facility] Comment on above: Order Comment: FASTI NG Performed By: #### L IPID, CMP, A1C WTH eA, CBC #### [facility] [address] Globulin (S) [Mass/Vol] 2.2 g/dL [facility] Comment on above: Order Comment: FASTI NG Performed By: #### L IPID, CMP, A1C WTH eA, CBC #### [facility] [address] Glucose [Mass/Vol] 172 mg/dL High 70-100 [facility] Comment on above: Order Comment: FASTI NG Result Comment: [facility] Glucose Reference Range is dependent on time and content of last meal. Glucose of more than 200 mg/dL in a nonstressed, ambulatory subject supports the diagnosis of Diabetes Mellitus. ADA recommended reference range Performed By: #### L IPID, CMP, A1C WTH eA, CBC #### [facility] [address] Potassium [Moles/Vol] 4.0 mmol/L Normal 3.5-5.1 [facility] Comment on above: Order Comment: FASTI NG Performed By: #### L IPID, CMP, A1C WTH eA, CBC #### [facility] [address] [place] [address] [place] Protein [Mass/Vol] 6.4 g/dL Normal 6.4-8.9 [facility] Comment on above: Order Comment: FASTI NG Performed By: #### L IPID, CMP, A1C WTH eA, CBC #### [facility] [address] [place] [address] [place] Sodium [Moles/Vol] 142 mmol/L Normal 136-145 [facility] Comment on above: Order Comment: FASTI NG Performed By: #### L IPID, CMP, A1C WTH eA, CBC #### [facility] [address] [place] [address] [place] Urea nitrogen [Mass/Vol] 38 mg/dL High 7-25 [facility] Comment on above: Order Comment: FASTI NG Performed By: #### L IPID, CMP, A1C WTH eA, CBC #### [facility] [address] Creatinine [Mass/volume] in Serum or PlasmaOrdered By: Vinay Bunting on 09-05-2023 Creatinine [Mass/Vol] 1.67 mg/dL 0.60-1.20 [facility] Eosinophils Auto (Bld) [#/Vo l]Ordered By: Vinay Bunting on 09-05-2023 Eosinophils (Bld) [#/Vol] 0.1 10*3/uL 0.0-0.45 [facility] Eosinophils/100 WBC Auto (Bl d)Ordered By: Vinay Bunting on 09-05-2023 Eosinophils/100 WBC (Bld) 2.7 % . [facility] Erythrocyte distribution wid th Auto (RBC) [Ratio]Ordered By: Vinay Bunting on 09-05-2023 Erythrocyte distribution width (RBC) [Ratio] 17.2 % 11.9-15.3 [facility] Globulin Calc (S) [Mass/Vol] Ordered By: Vinay Bunting on 09-05-2023 Globulin (S) [Mass/Vol] 2.2 g/dL [facility] Glucose [Mass/volume] in Ser um or PlasmaOrdered By: Vinay Bunting on 09-05-2023 Glucose [Mass/Vol] 172 mg/dL 70-100 [facility] Comment on above: ADA recommended refe rence rangeRandom Glucose Reference Range is dependent on time and content of last meal. Glucose of more than 200 mg/dL in a nonstressed, ambulatory subject supports the diagnosis of Diabetes Mellitus. Glucose mean value [Mass/vol ume] in Blood Estimated from glycated hemoglobinOrdered By: Vinay Bunhomer on 09-05-2023 Average glucose Estimated from glycated hemoglobin (Bld) [Mass/Vol] 192 mg/dL [facility] Hematocrit Auto (Bld) [Volum e fraction]Ordered By: Vinay Bunting on 09-05-2023 Hematocrit (Bld) [Volume fraction] 31.6 % 34.0-46.4 [facility] Hemoglobin A1c percentageOrd ered By: Vinay Matta on 09-05-2023 HbA1c (Bld) [Mass fraction] 8.3 % 4.3-5.6 [facility] Comment on above: Increased risk for d iabetes: 5.7 - 6.4diabetes: >6.4glycemic control for adults with diabetes: <7.0 Hemoglobin [Mass/volume] in BloodOrdered By: Vinay Matta on 09-05-2023 Hemoglobin (Bld) [Mass/Vol] 11.0 g/dL 11.8-15.4 [facility] Leukocytes [#/volume] correc remberto for nucleated erythrocytes in Blood by Automated counOrdered By: Vinay Matta on 09-05-2023 WBC corrected for nucl RBC Auto (Bld) [#/Vol] 5.3 10*3/uL 3.8-11.6 [facility] Lipid Panelon 09-05-2023 Cholesterol [Mass/Vol] 116 mg/dL Low 140-200 [facility] Comment on above: Order Comment: FASTI NG Result Comment: Chol less than 200 mg/dl low risk Chol 201-239 mg/dl borderline risk Chol 240 mg/dl and greater high risk Performed By: #### L IPID, CMP, A1C WT eA, CBC #### [facility] [address] [place] [address] [place] Cholesterol in HDL [Mass/Vol] 42 mg/dL Normal 23-92 [facility] Comment on above: Order Comment: FASTI NG Result Comment: HDL CHOL ATP-III CLASSIFICATION Cardiovascular Risk HDL > or equal to 60 mg/dL LOW HDL < 40 mg/dL HIGH Performed By: #### L IPID, CMP, A1C WTH eA, CBC #### [facility] [address] [place] [id number] [place] Cholesterol.total/Chol esterol in HDL [Mass ratio] 2.8 {ratio} Normal <5.0 [facility] Comment on above: Order Comment: FASTI NG Result Comment: PERF ORMED BY: [facility] [address] [place] [address] PATHOLOGIST BAD WORK GATHERER THERESA MULLER M.D. Performed By: #### L IPID, CMP, A1C WTH eA, CBC #### [facility] [address] LDL Cholesterol,Calculated 55 mg/dL Normal 0-100 [facility] Comment on above: Order Comment: FASTI NG Result Comment: LDL ATP III CLASSIFICATION LDL less than 100 mg/dL Optimal LDL 100-129 mg/dL Near or above optimal LDL 130-159 mg/dL Borderline high LDL 160-189 mg/dL High LDL greater than 189 mg/dL Very high Performed By: #### L IPID, CMP, A1C WTH eA, CBC #### [facility] [address] Triglyceride w/Reflex 93 mg/dL Normal 0-149 [facility] Comment on above: Order Comment: FASTI NG Result Comment: TRIG ATP III CLASSIFICATION TRIG less than 150 mg/dL Normal TRIG 150-199 mg/dL Borderline high TRIG 200-500 mg/dL High TRIG greater than 500 mg/dL Very high Standard traceable to the Center for Disease Conrtrol and Prevention (CDC) test method. Performed By: #### L IPID, CMP, A1C WTH eA, CBC #### [facility] [address] VLDL CHOLESTEROL 18 mg/dL Normal [facility] Comment on above: Order Comment: FASTI NG Performed By: #### L IPID, CMP, A1C WTH eA, CBC #### [facility] [address] Lymphocytes Auto (Bld) [#/Vo l]Ordered By: Vinay Matta on 09-05-2023 Lymphocytes (Bld) [#/Vol] 1.5 10*3/uL 1.00-4.8 [facility] Lymphocytes/100 WBC Auto (Bl d)Ordered By: Vinay Matta on 09-05-2023 Lymphocytes/100 WBC (Bld) 28.2 % . [facility] MCH Auto (RBC) [Entitic mass ]Ordered By: Vinay Matta on 09-05-2023 MCH (RBC) [Entitic mass] 29.1 pg 24.7-34.3 [facility] MCHC Auto (RBC) [Mass/Vol]Or dered By: Vinay Bunting on 09-05-2023 MCHC (RBC) [Mass/Vol] 34.9 g/dL 32.0-35.0 [facility] MCV Auto (RBC) [Entitic vol] Ordered By: Vinay Bunting on 09-05-2023 MCV (RBC) [Entitic vol] 83.3 fL 80-100 [facility] Monocytes Auto (Bld) [#/Vol] Ordered By: Vinay Bunting on 09-05-2023 Monocytes (Bld) [#/Vol] 0.3 10*3/uL 0.0-0.8 [facility] Monocytes/100 WBC Auto (Bld) Ordered By: Vinay Bunting on 09-05-2023 Monocytes/100 WBC (Bld) 5.0 % . [facility] Neutrophils Auto (Bld) [#/Vo l]Ordered By: Vinay Bunting on 09-05-2023 Neutrophils (Bld) [#/Vol] 3.4 10*3/uL 1.8-7.7 [facility] Neutrophils/100 WBC Auto (Bl d)Ordered By: Vinay Bunting on 09-05-2023 Neutrophils/100 WBC (Bld) 63.6 % . [facility] No Panel InformationOrdered By: Vinay Bunting on 09-05-2023 Estimated GFR (CKD-EPI) 31.949 mL/Min [facility] Creatinine Clearance (Chem N/A [facility] Nucleated erythrocytes [Pres ence] in Blood by Automated countOrdered By: Vinay Bunting on 09-05-2023 Nucleated RBC Auto Ql (Bld) 0.0 /100{WBC} 0-0.5 [facility] Platelet mean volume Auto (B ld) [Entitic vol]Ordered By: Vinay Bunting on 09-05-2023 Platelet mean volume (Bld) [Entitic vol] 7.3 fL 6.3-10.7 [facility] Platelets Auto (Bld) [#/Vol] Ordered By: Vinay Bunting on 09-05-2023 Platelets (Bld) [#/Vol] 150 10*3/uL 150-450 [facility] Potassium [Moles/volume] in Serum or PlasmaOrdered By: Vinay Bunting on 09-05-2023 Potassium [Moles/Vol] 4.0 mmol/L 3.5-5.1 [facility] Protein [Mass/volume] in Ser um or PlasmaOrdered By: Vinay Bunting on 09-05-2023 Protein [Mass/Vol] 6.4 g/dL 6.4-8.9 [facility] RBC Auto (Bld) [#/Vol]Ordere d By: Vinay Bunting on 09-05-2023 RBC (Bld) [#/Vol] 3.79 10*6/uL 3.60-5.00 [facility] Serum or plasma albumin/glob ulin mass ratioOrdered By: Vinay Bunting on 09-05-2023 Albumin/Globulin [Mass ratio] 1.9 {ratio} [facility] Serum or plasma anion gap de terminationOrdered By: Vinay Bunting on 09-05-2023 Anion gap [Moles/Vol] 13.8 mmol/L 6.0-15.0 [facility] Serum or plasma high density lipoprotein (HDL) cholesterol measurementOrdered By: Vinay Bunting on 09-05-2023 Cholesterol in HDL [Mass/Vol] 42 mg/dL 23-92 [facility] Comment on above: HDL CHOL ATP-III CLA SSIFICATION Cardiovascular RiskHDL > or equal to 60 mg/dL LOWHDL < 40 mg/dL HIGH Serum or plasma total choles terol/high density lipoprotein (HDL) cholesterol mass ratOrdered By: Vinay Bunting on 09-05-2023 Cholesterol.total/Chol esterol in HDL [Mass ratio] 2.8 {ratio} <5.0 [facility] Sodium [Moles/volume] in Ser um or PlasmaOrdered By: Vinay Bunting on 09-05-2023 Sodium [Moles/Vol] 142 mmol/L 136-145 [facility] Triglyceride [Mass/volume] i n Serum or PlasmaOrdered By: Vinay Bunting on 09-05-2023 Triglyceride [Mass/Vol] 93 mg/dL 0-149 [facility] Comment on above: TRIG ATP III CLASSIF ICATIONTRIG less than 150 mg/dL NormalTRIG 150-199 mg/dL Borderline highTRIG 200-500 mg/dL High TRIG greater than 500 mg/dL Very highStandard traceable to the Center for Disease Conrtrol and Prevention (CDC) test method. Urate [Mass/volume] in Serum or PlasmaOrdered By: Vinay Bunting on 09-05-2023 Urate [Mass/Vol] 6.0 mg/dL 2.3-6.6 [facility] Urea nitrogen [Mass/volume] in Serum or PlasmaOrdered By: Vinay Bunting on 09-05-2023 Urea nitrogen [Mass/Vol] 38 mg/dL 7 [facility] Uric Acidon 09-05-2023 Urate [Mass/Vol] 6.0 mg/dL Normal 2.3-6.6 [facility] Comment on above: Order Comment: FASTI NG Performed By: #### L IPID, CMP, A1C WT eA, CBC #### [facility] [address] WBC Auto (Bld) [#/Vol]Ordere d By: Vinay Bunting on 09-05-2023 WBC (Bld) [#/Vol] 5.3 10*3/uL 3.8-11.6 [facility] Reportson 08-02-2023 Lab Reports [id number]:127 [facility] Consultation Noteon 07-28-20 Consultation Note [id number]:127 [facility] CNPNon 07-27-2023 CNPN Telephone (HEMASA) ANH TEJEDA ([id number]) 1950 F Date Time Provider Department 07/27/23 [...] Status:Closed by SAMANTHA MCMAHAN on 07/27/23 Normal [facility] CBC W Auto Differential pane l (Bld)on 07-24-2023 Basophils (Bld) [#/Vol] 10*3/uL Normal <0.11 [facility] Comment on above: Order Comment: Speci men Type: BLOOD SPECIMEN Ordering Facility: [facility] Address: [address] [place] [address] Performed By: #### 5 0190-8, 2276-02 #### [facility] CLIA [id number] [address] [place] [address] [place] Basophils/100 WBC (Bld) 0.3 % Normal [facility] Comment on above: Order Comment: Speci men Type: BLOOD SPECIMEN Ordering Facility: [facility] Address: [address] [place] [address] Performed By: #### 5 0190-8, 2275- #### [facility] CLIA [id number] [address] [place] [address] [place] Differential cell count method Nom (Bld) Auto Normal [facility] Comment on above: Order Comment: Speci men Type: BLOOD SPECIMEN Ordering Facility: [facility] Address: [address] [place] [address] Performed By: #### 5 0190-8, 2275- #### [facility] CLIA [id number] [address] [place] [address] [place] Eosinophils (Bld) [#/Vol] 0.20 10*3/uL Normal <0.46 [facility] Comment on above: Order Comment: Speci men Type: BLOOD SPECIMEN Ordering Facility: [facility] Address: [address] [place], [place] [id number] Performed By: #### 5 0190-8, 2276-02 #### [facility] CLIA [id number] [address] [place] [address] [place] Eosinophils/100 WBC (Bld) 3.0 % Normal [facility] Comment on above: Order Comment: Speci men Type: BLOOD SPECIMEN Ordering Facility: [facility] Address: [address] [place], [place] [id number] Performed By: #### 5 0190-8, 2276-02 #### [facility] CLIA [id number] [address] [place] [address] [place] Erythrocyte distribution width (RBC) [Ratio] 16.0 % High 11.5-15.0 [facility] Comment on above: Order Comment: Speci men Type: BLOOD SPECIMEN Ordering Facility: [facility] Address: [address] [place], [place] [address] Performed By: #### 5 0190-8, 2276-02 #### [facility] CLIA [id number] [address] [place] [address] [place] Hematocrit (Bld) [Volume fraction] 35.2 % Low 36.0-46.0 [facility] Comment on above: Order Comment: Speci men Type: BLOOD SPECIMEN Ordering Facility: [facility] Address: [address] [place], [place] [address] Performed By: #### 5 0190-8, 2276-02 #### [facility] CLIA [id number] [address] [place] [address] [place] Hemoglobin (Bld) [Mass/Vol] 11.6 g/dL Normal 11.5-15.5 [facility] Comment on above: Order Comment: Speci men Type: BLOOD SPECIMEN Ordering Facility: [facility] Address: [address] Performed By: #### 5 0190-8, 2275-4 #### [facility] CLIA [id number] [address] [place] [address] [place] Immature granulocytes (Bld) [#/Vol] 10*3/uL Normal <0.10 [facility] Comment on above: Order Comment: Speci men Type: BLOOD SPECIMEN Ordering Facility: [facility] Address: [address] Performed By: #### 5 0190-8, 2275-4 #### [facility] CLIA [id number] [address] [place] [address] [place] Immature granulocytes/100 WBC (Bld) 0.3 % Normal [facility] Comment on above: Order Comment: Speci men Type: BLOOD SPECIMEN Ordering Facility: [facility] Address: [address] Performed By: #### 5 0190-8, 2275-4 #### [facility] CLIA [id number] [address] [place] [address] [place] Lymphocytes (Bld) [#/Vol] 1.55 10*3/uL Normal 1.00-4.00 [facility] Comment on above: Order Comment: Speci men Type: BLOOD SPECIMEN Ordering Facility: [facility] Address: [address] Performed By: #### 5 0190-8, 2275-4 #### [facility] CLIA [id number] [address] [place] [address] [place] Lymphocytes/100 WBC (Bld) 23.3 % Normal [facility] Comment on above: Order Comment: Speci men Type: BLOOD SPECIMEN Ordering Facility: [facility] Address: [address] Performed By: #### 5 0190-8, 2276-02 #### [facility] CLIA [id number] [address] [place] [address] [place] MCH (RBC) [Entitic mass] 28.0 pg Normal 26.0-34.0 [facility] Comment on above: Order Comment: Speci men Type: BLOOD SPECIMEN Ordering Facility: [facility] Address: [address] [place] [address] Performed By: #### 5 0190-8, 2276-02 #### [facility] CLIA [id number] [address] [place] [address] [place] MCHC (RBC) [Mass/Vol] 33.0 g/dL Normal 30.5-36.0 [facility] Comment on above: Order Comment: Speci men Type: BLOOD SPECIMEN Ordering Facility: [facility] Address: [address] [place] [id number] Performed By: #### 5 0190-8, 2276-02 #### [facility] CLIA [id number] [address] [place] [address] [place] MCV (RBC) [Entitic vol] 84.8 fL Normal 80.0-100.0 [facility] Comment on above: Order Comment: Speci men Type: BLOOD SPECIMEN Ordering Facility: [facility] Address: [address] [place] [address] Performed By: #### 5 0190-8, 2276-02 #### [facility] CLIA [id number] [address] [place] [address] [place] Monocytes (Bld) [#/Vol] 0.39 10*3/uL Normal <0.87 [facility] Comment on above: Order Comment: Speci men Type: BLOOD SPECIMEN Ordering Facility: [facility] Address: [address] [place] [id number] Performed By: #### 5 0190-8, 2276-02 #### [facility] CLIA [id number] [address] [place] [address] [place] Monocytes/100 WBC (Bld) 5.9 % Normal [facility] Comment on above: Order Comment: Speci men Type: BLOOD SPECIMEN Ordering Facility: [facility] Address: [address] [place], [place] [address] Performed By: #### 5 0190-8, 2275- #### [facility] CLIA [id number] [address] [place] [address] [place] Neutrophils (Bld) [#/Vol] 4.46 10*3/uL Normal 1.45-7.50 [facility] Comment on above: Order Comment: Speci men Type: BLOOD SPECIMEN Ordering Facility: [facility] Address: [address] [place] [address] Performed By: #### 5 0190-8, 2275- #### [facility] CLIA [id number] [address] [place] [address] [place] Neutrophils/100 WBC (Bld) 67.2 % Normal [facility] Comment on above: Order Comment: Speci men Type: BLOOD SPECIMEN Ordering Facility: [facility] Address: [address] [place], [place] [address] Performed By: #### 5 0190-8, 2275- #### [facility] CLIA [id number] [address] [place] [address] [place] Nucleated RBC (Bld) [#/Vol] 10*3/uL Normal <0.01 [facility] Comment on above: Order Comment: Speci men Type: BLOOD SPECIMEN Ordering Facility: [facility] Address: [address] [place], [place] [address] Performed By: #### 5 0190-8, 2275- #### [facility] CLIA [id number] [address] [place] [address] [place] Nucleated RBC/100 WBC (Bld) [Ratio] 0.0 /100 WBC Normal [facility] Comment on above: Order Comment: Speci men Type: BLOOD SPECIMEN Ordering Facility: [facility] Address: [address] [place] [address] Performed By: #### 5 0190-8, 2275-4 #### [facility] CLIA [id number] [address] [place] [address] [place] Platelet mean volume (Bld) [Entitic vol] 9.6 fL Normal 9.0-12.7 [facility] Comment on above: Order Comment: Speci men Type: BLOOD SPECIMEN Ordering Facility: [facility] Address: [address] [place], [place] [address] Performed By: #### 5 0190-8, 2276-02 #### [facility] CLIA [id number] [address] [place] [address] [place] Platelets (Bld) [#/Vol] 162 10*3/uL Normal 150-400 [facility] Comment on above: Order Comment: Speci men Type: BLOOD SPECIMEN Ordering Facility: [facility] Address: [address] [place] [address] Performed By: #### 5 0190-8, 2276-02 #### [facility] CLIA [id number] [address] [place] [address] [place] RBC (Bld) [#/Vol] 4.15 10*6/uL Normal 3.90-5.20 [facility] Comment on above: Order Comment: Speci men Type: BLOOD SPECIMEN Ordering Facility: [facility] Address: [address] [place], [place] [address] Performed By: #### 5 0190-8, 2275- #### [facility] CLIA [id number] [address] [place] [address] [place] WBC (Bld) [#/Vol] 6.64 10*3/uL Normal 3.70-11.00 [facility] Comment on above: Order Comment: Speci men Type: BLOOD SPECIMEN Ordering Facility: [facility] Address: [address] [place], [place] [phone] Performed By: #### 5 0190-8, 2276-4 #### [facility] CLIA [id number] [address] [facility] [id number] [place] [address] CNOVSPon 07-24-2023 CNOVSP Visit (SP) Office (H EMASA) ANH TEJEDA ([id number]) 1950 F Date Time Provider Department 07/24/23 2:00 PM DAKSHA BRIDGES During your visit today, we recorded the following information about you: Temperature Pulse Respiration Blood pressure 97.7 degrees 79/minute 16/minute 132/54 Weight Height 92.6 kg 1.58 m Daksha Bridges PA-C 07/24/2023 2:26 PM Signed PATIENT NAME: Anh Tejeda CLINIC NO.: [id number] ATTENDING PHYSICIAN: Delores Walker MD DATE OF [...] CO2 (mmol (more content not included)... Normal [facility] ANH TEJEDA ([id number]) 1950 F Date Time Provider Department 07/24/23 [...] to see her sooner. TROY Onofre Brandi, JAQUAN 07/24/2023 3:30 PM Signed Call made to Dr. Matta's office. Office was closed for the weekend. Left message on [employer] with message. Labs faxed as requested. Herminia [...] Status:Closed by HERMINIA SNIDER on 07/24/23 Normal [facility] Comprehensive metabolic 2000 panelon 07-24-2023 Albumin [Mass/Vol] 4.6 g/dL Normal 3.9-4.9 [facility] Comment on above: Order Comment: Speci men Type: BLOOD SPECIMEN Ordering Facility: [facility] Address: [address] [place] [address] Performed By: #### 5 0190-8, 2275-4 #### [facility] CLIA [id number] [address] [place] [address] [place] ALP [Catalytic activity/Vol] 128 U/L High 34-123 [facility] Comment on above: Order Comment: Speci men Type: BLOOD SPECIMEN Ordering Facility: [facility] Address: [address] Performed By: #### 5 0190-8, 2275-4 #### [facility] CLIA [id number] [address] [place] [address] [place] ALT [Catalytic activity/Vol] 20 U/L Normal 7-38 [facility] Comment on above: Order Comment: Speci men Type: BLOOD SPECIMEN Ordering Facility: [facility] Address: [address] Performed By: #### 5 0190-8, 2275- #### [facility] CLIA [id number] [address] [place] [address] [place] Anion gap [Moles/Vol] 15 mmol/L Normal 9-18 [facility] Comment on above: Order Comment: Speci men Type: BLOOD SPECIMEN Ordering Facility: [facility] Address: [address] [place] [address] Performed By: #### 5 0190-8, 2275-4 #### [facility] CLIA [id number] [address] [place] [address] [place] AST [Catalytic activity/Vol] 24 U/L Normal 13-35 [facility] Comment on above: Order Comment: Speci men Type: BLOOD SPECIMEN Ordering Facility: [facility] Address: [address] [place] [address] Performed By: #### 5 0190-8, 2275-4 #### [facility] CLIA [id number] [address] [place] [address] [place] Bilirubin [Mass/Vol] 0.5 mg/dL Normal 0.2-1.3 [facility] Comment on above: Order Comment: Speci men Type: BLOOD SPECIMEN Ordering Facility: [facility] Address: [address] [place], [place] [address] Performed By: #### 5 0190-8, 2275-4 #### [facility] CLIA [id number] [address] [place] [address] [place] Calcium [Mass/Vol] 9.9 mg/dL Normal 8.5-10.2 [facility] Comment on above: Order Comment: Speci men Type: BLOOD SPECIMEN Ordering Facility: [facility] Address: [address] [place], [place] [address] Performed By: #### 5 0190-8, 2275-4 #### [facility] CLIA [id number] [address] [place] [address] [place] Chloride [Moles/Vol] 105 mmol/L Normal 97-105 [facility] Comment on above: Order Comment: Speci men Type: BLOOD SPECIMEN Ordering Facility: [facility] Address: [address] Performed By: #### 5 0190-8, 6-4 #### [facility] CLIA [id number] [address] [place] [address] [place] CO2 [Moles/Vol] 25 mmol/L Normal 22-30 [facility] Comment on above: Order Comment: Speci men Type: BLOOD SPECIMEN Ordering Facility: [facility] Address: [address] [place] [address] Performed By: #### 5 0190-8, 2275-4 #### [facility] CLIA [id number] [facility] [place] [address] [place] Creatinine [Mass/Vol] 1.71 mg/dL High 0.58-0.96 [facility] Comment on above: Order Comment: Speci men Type: BLOOD SPECIMEN Ordering Facility: [facility] Address: [address] [place] [address] Performed By: #### 5 0190-8, 2275-4 #### [facility] CLIA [id number] [facility] [place] [address] [place] Creatinine and Glomerular filtration rate.predicted panel (S/P/Bld) 31 mL/min/1.73m??? Low >=60 [facility] Comment on above: Order Comment: Speci men Type: BLOOD SPECIMEN Ordering Facility: [facility] Address: [address] [place], [place] [address] Result Comment: Maru mated Glomerular Filtration Rate [...] Performed By: #### 5 0190-8, 2275-4 #### [facility] CLIA [id number] [facility] [place] [address] [place] Glucose [Mass/Vol] 159 mg/dL High 74-99 [facility] Comment on above: Order Comment: Speci men Type: BLOOD SPECIMEN Ordering Facility: [facility] Address: [address] [place] [address] Result Comment: The [place] Diabetes [employer] (ADA) provides guidance for cutoff [...] Standards of Medical Care in Diabetes 2016, [place] [employer]. Diabetes Care. 2016.39(Suppl 1). Performed By: #### 5 0190-8, 2275-4 #### [facility] CLIA [id number] [address] [place] [address] [place] Potassium [Moles/Vol] 4.6 mmol/L Normal 3.7-5.1 [facility] Comment on above: Order Comment: Alexii men Type: BLOOD SPECIMEN Ordering Facility: [facility] Address: [address] [place] [id number] Performed By: #### 5 0190-8, 2275-4 #### [facility] CLIA [id number] [address] [place] [address] [place] Protein [Mass/Vol] 7.0 g/dL Normal 6.3-8.0 [facility] Comment on above: Order Comment: Speci men Type: BLOOD SPECIMEN Ordering Facility: [facility] Address: [address] Performed By: #### 5 0190-8, 2275-4 #### [facility] CLIA [id number] [address] [place] [address] [place] Sodium [Moles/Vol] 145 mmol/L High 136-144 [facility] Comment on above: Order Comment: Speci men Type: BLOOD SPECIMEN Ordering Facility: [facility] Address: [address] [place] [address] Performed By: #### 5 0190-8, 2275-4 #### [facility] CLIA [id number] [address] [place] [address] [place] Urea nitrogen [Mass/Vol] 42 mg/dL High 7-21 [facility] Comment on above: Order Comment: Speci men Type: BLOOD SPECIMEN Ordering Facility: [facility] Address: [address] [place] [address] Performed By: #### 5 0190-8, 2275-4 #### [facility] CLIA [id number] [address] [place] [address] [place] Ferritin SerPl-mCncon 2022 Ferritin [Mass/Vol] 111.0 ng/mL Normal 14.7-205.1 [facility] Comment on above: Order Comment: Speci men Type: BLOOD SPECIMEN Ordering Facility: [facility] Address: [address] Performed By: #### 5 0190-8, 2276-02 #### [facility] CLIA [id number] [address] [place] [address] [place] Iron and Iron binding capaci ty panelon 07-24-2023 Iron [Mass/Vol] 75 ug/dL Normal 41-186 [facility] Comment on above: Order Comment: Speci men Type: BLOOD SPECIMEN Ordering Facility: [facility] Address: [address] [place], [place] [address] Performed By: #### 5 0190-8, 6-4 #### [facility] CLIA [id number] [address] [place] [address] [place] Iron binding capacity [Mass/Vol] 409 ug/dL High 232-386 [facility] Comment on above: Order Comment: Speci men Type: BLOOD SPECIMEN Ordering Facility: [facility] Address: [address] [place], [place] [address] Performed By: #### 5 0190-8, 2276-02 #### [facility] CLIA [id number] [address] [place] [address] [place] Iron/TIBC [Molar ratio] 18.3 % Normal 15.0-57.0 [facility] Comment on above: Order Comment: Speci men Type: BLOOD SPECIMEN Ordering Facility: [facility] Address: [address] [place], [place] [address] Performed By: #### 5 0190-8, 2276-02 #### [facility] CLIA [id number] [address] [place] [address] [place] Lab Reportson 05-23-2023 Lab Reports [id number]:127 Normal [facility] Lab Reports [id number]:127 Normal [facility] A1C with Estimated Average G luon 05-20-2023 Glucose [Mass/Vol] 163 mg/dL Normal [facility] Comment on above: Result Comment: PERF ORMED BY: [facility] [address] [place] [address] PATHOLOGIST BAD WORK GATHERER THERESA MULLER M.D. Performed By: #### L IPID, CMP, A1C WTH eA, CBC #### [facility] [address] [place] [address] [place] HbA1c (Bld) [Mass fraction] 7.3 % High 4.3-5.6 [facility] Comment on above: Result Comment: Incr eased risk for diabetes: 5.7 - 6.4 diabetes: >6.4 glycemic control for adults with diabetes: <7.0 Performed By: #### L IPID, CMP, A1C WTH eA, CBC #### [facility] [address] [place] [id number] [place] Anti-Centromere B Antibodies on 05-20-2023 Anti-Centromere B Antibodies <0.2 Normal 0.0-0.9 [facility] Comment on above: Result Comment: Perf ormed at: - [facility] [address] [id number] Flight Follower: Darren Ashby PhD, Phone: [phone] Performed By: #### L IPID, BMP, CBC #### [place] [address] [place] Anti-RNPon 05-20-2023 Anti-BOX ORDER PERSON <0.2 Normal 0.0-0.9 [facility] Comment on above: Performed By: #### L IPID, BMP, CBC #### [facility] [address] [place] [address] [place] Anti-Balbuena Antibodieson Anti-Balbuena Antibodies <0.2 Normal 0.0-0.9 [facility] Comment on above: Performed By: #### L IPID, BMP, CBC #### [place] [address] [place] Anti-dsDNA(DBL)Abon 05-20-20 23 Anti-dsDNA(DBL)Ab 1 Normal 0-[address] [facility] Comment on above: Result Comment: Nega tive <5 Equivocal 5 - 9 Positive >9 Performed By: #### L IPID, BMP, CBC #### [facility] [address] [place] [address] [place] C-Reactive Proteinon 023 C-Reactive Protein 0.8 mg/dL High 0.0-0.5 [facility] Comment on above: Performed By: #### L IPID, BMP, CBC #### [facility] [address] Chromatin Antibodyon 023 Chromatin Antibody <0.2 Normal 0.0-0.9 [facility] Comment on above: Result Comment: PERF ORMED BY: [place] [address] PATHOLOGIST BAD WORK GATHERER THERESA MULLER M.D. Performed By: #### L IPID, BMP, CBC #### [address] Complete Blood Count Auto Di ffon 05-20-2023 Basophils (Bld) [#/Vol] 0.0 10*3/uL Normal 0.0-0.2 [facility] Comment on above: Result Comment: PERF ORMED BY: [place] [address] PATHOLOGIST BAD WORK GATHERER THERESA MULLER M.D. Performed By: #### L IPID, CMP, A1C WTH eA, CBC #### [address] Basophils/100 WBC (Bld) 0.7 % Normal . [facility] Comment on above: Performed By: #### L IPID, CMP, A1C WTH eA, CBC #### [place] [address] [place] Eosinophils (Bld) [#/Vol] 0.1 10*3/uL Normal 0.0-0.45 [facility] Comment on above: Performed By: #### L IPID, CMP, A1C WTH eA, CBC #### [place] [address] [place] Eosinophils/100 WBC (Bld) 2.4 % Normal . [facility] Comment on above: Performed By: #### L IPID, CMP, A1C WTH eA, CBC #### [address] Erythrocyte distribution width (RBC) [Ratio] 16.7 % High 11.9-15.3 [facility] Comment on above: Performed By: #### L IPID, CMP, A1C WTH eA, CBC #### [facility] [address] [place] [address] Hematocrit (Bld) [Volume fraction] 31.8 % Low 34.0-46.4 [facility] Comment on above: Performed By: #### L IPID, CMP, A1C WTH eA, CBC #### [address] Hemoglobin (Bld) [Mass/Vol] 10.9 g/dL Low 11.8-15.4 [facility] Comment on above: Performed By: #### L IPID, CMP, A1C WTH eA, CBC #### [address] Lymphocytes (Bld) [#/Vol] 1.2 10*3/uL Normal 1.00-4.8 [facility] Comment on above: Performed By: #### L IPID, CMP, A1C WTH eA, CBC #### [address] Lymphocytes/100 WBC (Bld) 23.2 % Normal . [facility] Comment on above: Performed By: #### L IPID, CMP, A1C WTH eA, CBC #### [address] MCH (RBC) [Entitic mass] 28.4 pg Normal 24.7-34.3 [facility] Comment on above: Performed By: #### L IPID, CMP, A1C WTH eA, CBC #### [address] MCV (RBC) [Entitic vol] 83.2 fL Normal 80-100 [facility] Comment on above: Performed By: #### L IPID, CMP, A1C WTH eA, CBC #### [address] Mean Corpuscular HGB Conc 34.1 g/dL Normal 32.0-35.0 [facility] Comment on above: Performed By: #### L IPID, CMP, A1C WTH eA, CBC #### [address] [place] [address] [place] Monocytes (Bld) [#/Vol] 0.2 10*3/uL Normal 0.0-0.8 [facility] Comment on above: Performed By: #### L IPID, CMP, A1C WTH eA, CBC #### [address] Monocytes/100 WBC (Bld) 3.8 % Normal . [facility] Comment on above: Performed By: #### L IPID, CMP, A1C WTH eA, CBC #### [facility] [address] [place] [address] Neutrophils (Bld) [#/Vol] 3.5 10*3/uL Normal 1.8-7.7 [facility] Comment on above: Performed By: #### L IPID, CMP, A1C WTH eA, CBC #### [address] Neutrophils/100 WBC (Bld) 69.9 % Normal . [facility] Comment on above: Performed By: #### L IPID, CMP, A1C WTH eA, CBC #### [place] [address] [place] NRBC% 0.1 /100{WBC} Normal 0-0.5 [facility] Comment on above: Performed By: #### L IPID, CMP, A1C WTH eA, CBC #### [place] [address] [place] Platelet mean volume (Bld) [Entitic vol] 7.0 fL Normal 6.3-10.7 [facility] Comment on above: Performed By: #### L IPID, CMP, A1C WTH eA, CBC #### [facility] [address] [place] [address] [place] Platelets (Bld) [#/Vol] 144 10*3/uL Low 150-450 [facility] Comment on above: Performed By: #### L IPID, CMP, A1C WTH eA, CBC #### [facility] [address] [place] [address] [place] RBC (Bld) [#/Vol] 3.82 10*6/uL Normal 3.60-5.00 [facility] Comment on above: Performed By: #### L IPID, CMP, A1C WTH eA, CBC #### [facility] [address] WBC (Bld) [#/Vol] 5.1 10*3/uL Normal 3.8-11.6 [facility] Comment on above: Performed By: #### L IPID, CMP, A1C WTH eA, CBC #### [address] Comprehensive Metabolic Pane palmer 05-20-2023 Albumin [Mass/Vol] 4.1 g/dL Normal 3.5-5.7 [facility] Comment on above: Performed By: #### L IPID, CMP, A1C WTH eA, CBC #### [facility] [address] Albumin/Globulin [Mass ratio] 1.9 {ratio} Normal [facility] Comment on above: Performed By: #### L IPID, CMP, A1C WTH eA, CBC #### [address] ALP [Catalytic activity/Vol] 98 U/L Normal 34-104 [facility] Comment on above: Performed By: #### L IPID, CMP, A1C WTH eA, CBC #### [facility] [address] ALT [Catalytic activity/Vol] 17 U/L Normal 7-52 [facility] Comment on above: Performed By: #### L IPID, CMP, A1C WTH eA, CBC #### [facility] [address] Anion gap [Moles/Vol] 12.7 mmol/L Normal 6.0-15.0 [facility] Comment on above: Performed By: #### L IPID, CMP, A1C WTH eA, CBC #### [place] [address] [place] AST [Catalytic activity/Vol] 23 U/L Normal 13-39 [facility] Comment on above: Performed By: #### L IPID, CMP, A1C WTH eA, CBC #### [facility] [address] Bilirubin [Mass/Vol] 0.5 mg/dL Normal 0.3-1.0 [facility] Comment on above: Performed By: #### L IPID, CMP, A1C WTH eA, CBC #### [facility] [address] Calcium [Mass/Vol] 8.7 mg/dL Normal 8.6-10.3 [facility] Comment on above: Performed By: #### L IPID, CMP, A1C WTH eA, CBC #### [facility] [address] Chloride [Moles/Vol] 103 mmol/L Normal 98-107 [facility] Comment on above: Performed By: #### L IPID, CMP, A1C WTH eA, CBC #### [facility] [address] CO2 [Moles/Vol] 30.3 mmol/L Normal 21.0-31.0 [facility] Comment on above: Performed By: #### L IPID, CMP, A1C WTH eA, CBC #### [facility] [address] [place] [address] [place] Creatinine [Mass/Vol] 1.21 mg/dL High 0.60-1.20 [facility] Comment on above: Performed By: #### L IPID, CMP, A1C WTH eA, CBC #### [facility] [address] [place] [address] [place] GFR/1.73 sq M.predicted MDRD (S/P/Bld) [Vol rate/Area] 47.029 mL/min/{1.73_m2} Normal [facility] Comment on above: Performed By: #### L IPID, CMP, A1C WTH eA, CBC #### [facility] [address] [place] [address] [place] Globulin (S) [Mass/Vol] 2.2 g/dL Normal [facility] Comment on above: Performed By: #### L IPID, CMP, A1C WTH eA, CBC #### [facility] [address] Glucose [Mass/Vol] 152 mg/dL High 70-100 [facility] Comment on above: Result Comment: [facility] Glucose Reference Range is dependent on time and content of last meal. Glucose of more than 200 mg/dL in a nonstressed, ambulatory subject supports the diagnosis of Diabetes Mellitus. ADA recommended reference range Performed By: #### L IPID, CMP, A1C WTH eA, CBC #### [facility] [address] [place] [address] Potassium [Moles/Vol] 4.0 mmol/L Normal 3.5-5.1 [facility] Comment on above: Performed By: #### L IPID, CMP, A1C WTH eA, CBC #### [address] Protein [Mass/Vol] 6.3 g/dL Low 6.4-8.9 [facility] Comment on above: Performed By: #### L IPID, CMP, A1C WTH eA, CBC #### [address] Sodium [Moles/Vol] 142 mmol/L Normal 136-145 [facility] Comment on above: Performed By: #### L IPID, CMP, A1C WTH eA, CBC #### [address] Urea nitrogen [Mass/Vol] 25 mg/dL Normal 7-25 [facility] Comment on above: Performed By: #### L IPID, CMP, A1C WTH eA, CBC #### [address] Erythrocyte Sedimentation Ra jam 05-20-2023 ESR (Bld) [Velocity] 12 mm/h Normal 0-29 [facility] Comment on above: Result Comment: PERF ORMED BY: [address] [address] PATHOLOGIST [employer]AD WORK GATHERER THERESA MULLER M.D. Performed By: #### T SH3, CRP, [id number], ESR #### [place] [address] [place] #### ADNA, SSA, [id number], SPE, CHROMATIN, JO1, METH, CENTROME, SSB, ANTIR, BALBUENA #### [facility] , RAJAN-1 Antibodyon 05-20-2023 RAJAN-1 Antibody <0.2 Normal 0.0-0.9 [facility] Comment on above: Performed By: #### L IPID, BMP, CBC #### [address] Lipid Panelon 05-20-2023 Cholesterol [Mass/Vol] 116 mg/dL Low 140-200 [facility] Comment on above: Result Comment: Chol less than 200 mg/dl low risk Chol 201-239 mg/dl borderline risk Chol 240 mg/dl and greater high risk Performed By: #### L IPID, CMP, A1C WTH eA, CBC #### [address] Cholesterol in HDL [Mass/Vol] 38 mg/dL Normal 23-92 [facility] Comment on above: Result Comment: HDL CHOL ATP-III CLASSIFICATION Cardiovascular Risk HDL > or equal to 60 mg/dL LOW HDL < 40 mg/dL HIGH Performed By: #### L IPID, CMP, A1C WTH eA, CBC #### [address] Cholesterol.total/Chol esterol in HDL [Mass ratio] 3.1 {ratio} Normal <5.0 [facility] Comment on above: Result Comment: PERF ORMED BY: [place] [address] PATHOLOGIST [employer] WORK GATHERER THERESA MULLER M.D. Performed By: #### L IPID, CMP, A1C WTH eA, CBC #### [address] LDL Cholesterol,Calculated 56 mg/dL Normal 0-100 [facility] Comment on above: Result Comment: LDL ATP III CLASSIFICATION LDL less than 100 mg/dL Optimal LDL 100-129 mg/dL Near or above optimal LDL 130-159 mg/dL Borderline high LDL 160-189 mg/dL High LDL greater than 189 mg/dL Very high Performed By: #### L IPID, CMP, A1C WTH eA, CBC #### [facility] [address] [place] [id number] [facility] Triglyceride w/Reflex 109 mg/dL Normal 0-149 [facility] Comment on above: Result Comment: TRIG ATP III CLASSIFICATION TRIG less than 150 mg/dL Normal TRIG 150-199 mg/dL Borderline high TRIG 200-500 mg/dL High TRIG greater than 500 mg/dL Very high Standard traceable to the Center for Disease Conrtrol and Prevention (CDC) test method. Performed By: #### L IPID, CMP, A1C WTH eA, CBC #### [facility] [address] VLDL CHOLESTEROL 21 mg/dL Normal [facility] Comment on above: Performed By: #### L IPID, CMP, A1C WTH eA, CBC #### [facility] [address] [place] [id number] [place] Methylmalonic Acidon 023 Methylmalonic Acid 300 Normal 0-378 [facility] Comment on above: Result Comment: This test was developed and its performance characteristics determined by [facility]. It has not been cleared or approved by the Food and Drug Administration. Performed at: [facility] [address] [id number] Flight Follower: Keith Quijano MD, Phone: [phone] Performed By: #### L IPID, BMP, CBC #### [facility] [address] [place] [id number] [place] Protein Electrophoresis, Ser umon 05-20-2023 Albumin [Mass/Vol] 3.5 g/dL Normal 2.9-4.4 [facility] Comment on above: Performed By: #### L IPID, BMP, CBC #### [facility] [address] [place] [id number] [place] Albumin/Globulin [Mass ratio] 1.3 {ratio} Normal 0.7-1.7 [facility] Comment on above: Performed By: #### L IPID, BMP, CBC #### [address] Mggsx-3-Tciaekyq 0.2 g/dL Normal 0.0-0.4 [facility] Comment on above: Performed By: #### L IPID, BMP, CBC #### [address] Noucw-0-Qtbrnyqq 0.8 g/dL Normal 0.4-1.0 [facility] Comment on above: Performed By: #### L IPID, BMP, CBC #### [address] Beta Globulin 0.9 g/dL Normal 0.7-1.3 [facility] Comment on above: Performed By: #### L IPID, BMP, CBC #### [address] Gamma Globulin 0.6 g/dL Normal 0.4-1.8 [facility] Comment on above: Performed By: #### L IPID, BMP, CBC #### [address] Globulin (S) [Mass/Vol] 2.6 g/dL Normal 2.2-3.9 [facility] Comment on above: Performed By: #### L IPID, BMP, CBC #### [address] M-Bijan Not Observed Normal Not Observed [facility] Comment on above: Performed By: #### L IPID, BMP, CBC #### [facility] [address] [place] [address] Protein [Mass/Vol] 6.1 g/dL Normal 6.0-8.5 [facility] Comment on above: Performed By: #### L IPID, BMP, CBC #### [facility] [address] [place] [address] SPE-Note Normal . [facility] Comment on above: Result Comment: Prot ein electrophoresis scan will follow via computer, mail, or countersinker delivery. Performed at: - [facility] [id number] Flight Follower: Darren Ashby PhD, Phone: [phone] Performed By: #### L IPID, BMP, CBC #### [address] SS-A/Ro Sjogrens Antibodyon 05-20-2023 SS-A/Ro Sjogrens Antibody <0.2 Normal 0.0-0.9 [facility] Comment on above: Performed By: #### L IPID, BMP, CBC #### [address] SS-B/La Sjogrens Antibodyon 05-20-2023 SS-B/La Sjogrens Antibody <0.2 Normal 0.0-0.9 [facility] Comment on above: Performed By: #### L IPID, BMP, CBC #### [facility] [address] [place] [address] Scleroderma 70 Antibodieson 05-20-2023 Scleroderma 70 Antibodies <0.2 Normal 0.0-0.9 [facility] Comment on above: Performed By: #### L IPID, BMP, CBC #### [address] Thyroid Stimulating Hormoneo n 05-20-2023 TSH Qn 2.11 m[IU]/L Normal 0.45-5.33 [facility] Comment on above: Result Comment: PERF ORMED BY: [place] [address] PATHOLOGIST [employer]AD WORK GATHERER THERESA MULLER M.D. Performed By: #### L IPID, BMP, CBC #### [address] Vit. B12/Folate Profileon Cobalamin (Vitamin B12) [Mass/Vol] 487 pg/mL Normal 180-914 [facility] Comment on above: Performed By: #### L IPID, BMP, CBC #### [facility] [address] Folate 20.0 ng/mL Normal >5.9 [facility] Comment on above: Result Comment: Jessica te reference range: >5.9 ng/ml The WHO technical consultation on folate and vitamin b12 deficiencies has determined that folate concentrations less than 4 ng/ml are considered deficient. Performed By: #### L IPID, BMP, CBC #### [facility] [address] [place] [id number] [facility] CNPNon 05-04-2023 CNPN Telephone (HEMTSA) ANH TEJEDA ([id number]) 1950 F Date Time Provider Department 05/04/23 [...] Status:Closed by KARLIE CAR on 05/04/23 Normal [facility] Consultation Noteon 05-04-20 Consultation Note [id number]#[id number]:127 Normal [facility] Postoperative Documentson Postoperative Documents [id number]#[id number]:127 Normal [facility] CBC W Auto Differential pane l (Bld)on 05-01-2023 Basophils (Bld) [#/Vol] 10*3/uL Normal <0.11 [facility] Comment on above: Order Comment: Speci men Type: BLOOD SPECIMEN Ordering Facility: [facility] Address: [address] [place] [address] Performed By: #### 5 0190-8, 2275-4 #### [facility] CLIA [id number] [address] [place] [address] [place] Basophils/100 WBC (Bld) 0.1 % Normal [facility] Comment on above: Order Comment: Speci men Type: BLOOD SPECIMEN Ordering Facility: [facility] Address: [address] [place] [address] Performed By: #### 5 0190-8, 2275- #### [facility] CLIA [id number] [address] [place] [address] [place] Differential cell count method Nom (Bld) Auto Normal [facility] Comment on above: Order Comment: Speci men Type: BLOOD SPECIMEN Ordering Facility: [facility] Address: [address] [place] [address] Performed By: #### 5 0190-8, 2275- #### [facility] CLIA [id number] [address] [place] [address] [place] Eosinophils (Bld) [#/Vol] 0.11 10*3/uL Normal <0.46 [facility] Comment on above: Order Comment: Speci men Type: BLOOD SPECIMEN Ordering Facility: [facility] Address: [address] [place] [address] Performed By: #### 5 0190-8, 2275- #### [facility] CLIA [id number] [address] [place] [address] [place] Eosinophils/100 WBC (Bld) 1.5 % Normal [facility] Comment on above: Order Comment: Speci men Type: BLOOD SPECIMEN Ordering Facility: [facility] Address: [address] [place] [address] Performed By: #### 5 0190-8, 2276-02 #### [facility] CLIA [id number] [address] [place] [address] [place] Erythrocyte distribution width (RBC) [Ratio] 15.7 % High 11.5-15.0 [facility] Comment on above: Order Comment: Speci men Type: BLOOD SPECIMEN Ordering Facility: [facility] Address: [address] [place] [address] Performed By: #### 5 0190-8, 2276-02 #### [facility] CLIA [id number] [address] [place] [address] [place] Hematocrit (Bld) [Volume fraction] 35.7 % Low 36.0-46.0 [facility] Comment on above: Order Comment: Speci men Type: BLOOD SPECIMEN Ordering Facility: [facility] Address: [address] [place] [address] Performed By: #### 5 0190-8, 2276-02 #### [facility] CLIA [id number] [address] [place] [address] [place] Hemoglobin (Bld) [Mass/Vol] 11.7 g/dL Normal 11.5-15.5 [facility] Comment on above: Order Comment: Speci men Type: BLOOD SPECIMEN Ordering Facility: [facility] Address: [address] [place], [place] [address] Performed By: #### 5 0190-8, 2276-02 #### [facility] CLIA [id number] [address] [place] [address] [place] Immature granulocytes (Bld) [#/Vol] 10*3/uL Normal <0.10 [facility] Comment on above: Order Comment: Speci men Type: BLOOD SPECIMEN Ordering Facility: [facility] Address: [address] Performed By: #### 5 0190-8, 2276-02 #### [facility] CLIA [id number] [address] [place] [address] [place] Immature granulocytes/100 WBC (Bld) 0.3 % Normal [facility] Comment on above: Order Comment: Speci men Type: BLOOD SPECIMEN Ordering Facility: [facility] Address: [address] Performed By: #### 5 0190-8, 2276-02 #### [facility] CLIA [id number] [address] [place] [address] [place] Lymphocytes (Bld) [#/Vol] 1.64 10*3/uL Normal 1.00-4.00 [facility] Comment on above: Order Comment: Speci men Type: BLOOD SPECIMEN Ordering Facility: [facility] Address: [address] Performed By: #### 5 0190-8, 2276-02 #### [facility] CLIA [id number] [address] [place] [address] [place] Lymphocytes/100 WBC (Bld) 22.3 % Normal [facility] Comment on above: Order Comment: Speci men Type: BLOOD SPECIMEN Ordering Facility: [facility] Address: [address] Performed By: #### 5 0190-8, 2276-02 #### [facility] CLIA [id number] [address] [place] [address] [place] MCH (RBC) [Entitic mass] 28.5 pg Normal 26.0-34.0 [facility] Comment on above: Order Comment: Speci men Type: BLOOD SPECIMEN Ordering Facility: [facility] Address: [address] [place], [place] [address] Performed By: #### 5 0190-8, 2276-02 #### [facility] CLIA [id number] [address] [place] [address] [place] MCHC (RBC) [Mass/Vol] 32.8 g/dL Normal 30.5-36.0 [facility] Comment on above: Order Comment: Speci men Type: BLOOD SPECIMEN Ordering Facility: [facility] Address: [address] Performed By: #### 5 0190-8, 2276-02 #### [facility] CLIA [id number] [address] [place] [address] [place] MCV (RBC) [Entitic vol] 86.9 fL Normal 80.0-100.0 [facility] Comment on above: Order Comment: Speci men Type: BLOOD SPECIMEN Ordering Facility: [facility] Address: [address] [place], [place] [address] Performed By: #### 5 0190-8, 2276-02 #### [facility] CLIA [id number] [address] [place] [address] [place] Monocytes (Bld) [#/Vol] 0.44 10*3/uL Normal <0.87 [facility] Comment on above: Order Comment: Speci men Type: BLOOD SPECIMEN Ordering Facility: [facility] Address: [address] [place], [place] [address] Performed By: #### 5 0190-8, 2276-02 #### [facility] CLIA [id number] [address] [place] [address] [place] Monocytes/100 WBC (Bld) 6.0 % Normal [facility] Comment on above: Order Comment: Speci men Type: BLOOD SPECIMEN Ordering Facility: [facility] Address: [address] Performed By: #### 5 0190-8, 2276-02 #### [facility] CLIA [id number] [address] [place] [address] [place] Neutrophils (Bld) [#/Vol] 5.12 10*3/uL Normal 1.45-7.50 [facility] Comment on above: Order Comment: Speci men Type: BLOOD SPECIMEN Ordering Facility: [facility] Address: [address] [place] [address] Performed By: #### 5 0190-8, 2275-4 #### [facility] CLIA [id number] [address] [place] [address] [place] Neutrophils/100 WBC (Bld) 69.8 % Normal [facility] Comment on above: Order Comment: Speci men Type: BLOOD SPECIMEN Ordering Facility: [facility] Address: [address] [place] [address] Performed By: #### 5 0190-8, 2275-4 #### [facility] CLIA [id number] [address] [place] [address] [place] Nucleated RBC (Bld) [#/Vol] 10*3/uL Normal <0.01 [facility] Comment on above: Order Comment: Speci men Type: BLOOD SPECIMEN Ordering Facility: [facility] Address: [address] [place], [place] [address] Performed By: #### 5 0190-8, 2275- #### [facility] CLIA [id number] [address] [place] [address] [place] Nucleated RBC/100 WBC (Bld) [Ratio] 0.0 /100 WBC Normal [facility] Comment on above: Order Comment: Speci men Type: BLOOD SPECIMEN Ordering Facility: [facility] Address: [address] [place], [place] [address] Performed By: #### 5 0190-8, 2275- #### [facility] CLIA [id number] [address] [place] [address] [place] Platelet mean volume (Bld) [Entitic vol] 9.2 fL Normal 9.0-12.7 [facility] Comment on above: Order Comment: Speci men Type: BLOOD SPECIMEN Ordering Facility: [facility] Address: [address] [place], [place] [address] Performed By: #### 5 0190-8, 2275- #### [facility] CLIA [id number] [address] [place] [address] [place] Platelets (Bld) [#/Vol] 182 10*3/uL Normal 150-400 [facility] Comment on above: Order Comment: Speci men Type: BLOOD SPECIMEN Ordering Facility: [facility] Address: [address] [place], [place] [address] Performed By: #### 5 0190-8, 2275- #### [facility] CLIA [id number] [address] [place] [address] [place] RBC (Bld) [#/Vol] 4.11 10*6/uL Normal 3.90-5.20 [facility] Comment on above: Order Comment: Speci men Type: BLOOD SPECIMEN Ordering Facility: [facility] Address: [address] [place], [place] [address] Performed By: #### 5 0190-8, 2276-02 #### [facility] CLIA [id number] [address] [place] [address] [place] WBC (Bld) [#/Vol] 7.34 10*3/uL Normal 3.70-11.00 [facility] Comment on above: Order Comment: Speci men Type: BLOOD SPECIMEN Ordering Facility: [facility] Address: [address] [place], [place] [address] Performed By: #### 5 0190-8, 2275- #### [facility] CLIA [id number] [address] [place] [address] [place] CNOVSPon 05-01-2023 CNOVSP Visit (SP) Office (H EMASA) ANH TEJEDA ([id number]) 1950 F Date Time Provider Department 05/01/23 2:00 PM DAKSHA BRIDGES During your visit today, we recorded the following information about you: Temperature Pulse Respiration Blood pressure 97.6 degrees 82/minute 18/minute 131/49 Weight Height 93.6 kg 1.58 m Daksha Bridegs PA-C 05/01/2023 2:21 PM Signed PATIENT NAME: Anh Tejeda CLINIC NO.: [id number] ATTENDING PHYSICIAN: Delores Walker MD DATE OF [...] last visit she did have admission to [facility] in February 2023 for syncope and UTI. [...] a colonoscopy a few weeks ago at [facility]. I do not have any of these [...] pleasant an (more content not included)... Normal [facility] Comprehensive metabolic 2000 panelon 05-01-2023 Albumin [Mass/Vol] 4.6 g/dL Normal 3.9-4.9 [facility] Comment on above: Order Comment: Speci men Type: BLOOD SPECIMEN Ordering Facility: [facility] Address: [address] [place] [address] Performed By: #### 5 0190-8, 2275- #### [facility] CLIA [id number] [address] [place] [address] [place] ALP [Catalytic activity/Vol] 114 U/L Normal 34-123 [facility] Comment on above: Order Comment: Speci men Type: BLOOD SPECIMEN Ordering Facility: [facility] Address: [address] Performed By: #### 5 0190-8, 2275- #### [facility] CLIA [id number] [address] [place] [address] [place] ALT [Catalytic activity/Vol] 20 U/L Normal 7-38 [facility] Comment on above: Order Comment: Speci men Type: BLOOD SPECIMEN Ordering Facility: [facility] Address: [address] [place] [id number] Performed By: #### 5 0190-8, 2275-4 #### [facility] CLIA [id number] [address] [place] [address] [place] Anion gap [Moles/Vol] 15 mmol/L Normal 9-18 [facility] Comment on above: Order Comment: Speci men Type: BLOOD SPECIMEN Ordering Facility: [facility] Address: [address] Performed By: #### 5 0190-8, 2275-4 #### [facility] CLIA [id number] [address] [place] [address] [place] AST [Catalytic activity/Vol] 25 U/L Normal 13-35 [facility] Comment on above: Order Comment: Speci men Type: BLOOD SPECIMEN Ordering Facility: [facility] Address: [address] Performed By: #### 5 0190-8, 2275- #### [facility] CLIA [id number] [address] [place] [address] [place] Bilirubin [Mass/Vol] 0.6 mg/dL Normal 0.2-1.3 [facility] Comment on above: Order Comment: Speci men Type: BLOOD SPECIMEN Ordering Facility: [facility] Address: [address] Performed By: #### 5 0190-8, 2275- #### [facility] CLIA [id number] [address] [place] [address] [place] Calcium [Mass/Vol] 9.5 mg/dL Normal 8.5-10.2 [facility] Comment on above: Order Comment: Speci men Type: BLOOD SPECIMEN Ordering Facility: [facility] Address: [address] Performed By: #### 5 0190-8, 2275- #### [facility] CLIA [id number] [address] [place] [address] [place] Chloride [Moles/Vol] 96 mmol/L Low 97-105 [facility] Comment on above: Order Comment: Speci men Type: BLOOD SPECIMEN Ordering Facility: [facility] Address: [address] [place] [address] Performed By: #### 5 0190-8, 2276-4 #### [facility] CLIA [id number] [address] [place] [address] [place] CO2 [Moles/Vol] 31 mmol/L High 22-30 [facility] Comment on above: Order Comment: Patricia tarango Type: BLOOD SPECIMEN Ordering Facility: [facility] Address: [address] [place] [address] Performed By: #### 5 0190-8, 6-4 #### [facility] CLIA [id number] [address] [place] [address] [place] Creatinine [Mass/Vol] 1.53 mg/dL High 0.58-0.96 [facility] Comment on above: Order Comment: Patricia men Type: BLOOD SPECIMEN Ordering Facility: [facility] Address: [address] [place] [address] Performed By: #### 5 0190-8, 2276-4 #### [facility] CLIA [id number] [address] [place] [address] [place] [facility] ESTIMATED GLOMERULAR FILTRATION RATE 36 mL/min/1.73m??? Low >=60 [facility] Comment on above: Order Comment: Speci men Type: BLOOD SPECIMEN Ordering Facility: [facility] Address: [address] [place] [address] Result Comment: Maru mated Glomerular Filtration Rate [...] Performed By: #### 5 0190-8, 2275-4 #### [facility] CLIA [id number] [address] [place] [address] [place] Glucose [Mass/Vol] 149 mg/dL High 74-99 [facility] Comment on above: Order Comment: Speci men Type: BLOOD SPECIMEN Ordering Facility: [facility] Address: [address] [place] [id number] Result Comment: The [place] [employer] (ADA) provides guidance for cutoff [...] Standards of Medical Care in Diabetes 2016, [place] [employer]. [facility]. 2016.39(Suppl 1). Performed By: #### 5 0190-8, 2275- #### [facility] CLIA [id number] [address] [place] [address] [place] Potassium [Moles/Vol] 4.3 mmol/L Normal 3.7-5.1 [facility] Comment on above: Order Comment: Speci men Type: BLOOD SPECIMEN Ordering Facility: [facility] Address: [address] [place] [address] Performed By: #### 5 0190-8, 2275- #### [facility] CLIA [id number] [address] [address] [place] Protein [Mass/Vol] 7.0 g/dL Normal 6.3-8.0 [facility] Comment on above: Order Comment: Speci men Type: BLOOD SPECIMEN Ordering Facility: [facility] Address: [address] [place] [address] Performed By: #### 5 0190-8, 2275-4 #### [facility] CLIA [id number] [address] [place] [address] [place] Sodium [Moles/Vol] 142 mmol/L Normal 136-144 [facility] Comment on above: Order Comment: Speci men Type: BLOOD SPECIMEN Ordering Facility: [facility] Address: [address] [place] [address] Performed By: #### 5 0190-8, 2275-4 #### [facility] CLIA [id number] [address] [place] [address] [place] Urea nitrogen [Mass/Vol] 42 mg/dL High 7-21 [facility] Comment on above: Order Comment: Speci men Type: BLOOD SPECIMEN Ordering Facility: [facility] Address: [address] [place] [address] Performed By: #### 5 0190-8, 2275-4 #### [facility] CLIA [id number] [address] [place] [address] [place] Ferritin SerPl-mCncon 2022 Ferritin [Mass/Vol] 97.3 ng/mL Normal 14.7-205.1 [facility] Comment on above: Order Comment: Speci men Type: BLOOD SPECIMEN Ordering Facility: [facility] Address: [address] [place] [address] Performed By: #### 5 0190-8, 2275-4 #### [facility] CLIA [id number] [address] [place] [address] [place] Iron and Iron binding capaci ty panelon 05-01-2023 Iron [Mass/Vol] 68 ug/dL Normal 41-186 [facility] Comment on above: Order Comment: Speci men Type: BLOOD SPECIMEN Ordering Facility: [facility] Address: [address] Performed By: #### 5 0190-8, 2276-4 #### [facility] CLIA [id number] [address] [place] [address] [place] Iron binding capacity [Mass/Vol] 387 ug/dL High 232-386 [facility] Comment on above: Order Comment: Speci men Type: BLOOD SPECIMEN Ordering Facility: [facility] Address: [address] [place] [address] Performed By: #### 5 0190-8, 2276-4 #### [facility] CLIA [id number] [address] [place] [address] [place] Iron/TIBC [Molar ratio] 17.6 % Normal 15.0-57.0 [facility] Comment on above: Order Comment: Speci men Type: BLOOD SPECIMEN Ordering Facility: [facility] Address: [address] [place] [address] Performed By: #### 5 0190-8, 2276-4 #### [facility] CLIA [id number] [address] [place] [address] [place] cardiac event monitoron 0 04-24-2023 [place] cardiac event monitor [facility] [place] [address] Cardiac Event Monitor Signed Patient: Anh Tejeda MR#: [id number] : [id number] Acct:[id number] Age/Sex: 72 / F ADM Date: 03/13/23 Loc: Room: Type: [facility] Attending Dr: Georgina Prieto Adult STARR-BC Copies to: DENISE Lara MD, [facility] Ordering Provider: DENISE Lara Date of Service: [...] studies are available for comparison. Transcribed By: NTS 04/25/23 1231 Dictated By: Karl Padilla MD, [facility] 04/24/23 1551 Signed By: 05/06/23 1445 [facility] Physician Orderon 04-23-2023 Physician Order [id number]:127 [facility] Consent for Treatmenton Consent for Treatment [id number]:127 Normal [facility] General Surgery Office/Clini c Noteon 04-16-2023 [...] or their guardian verbally consented to allow [employer] to record this visit. Review of Systems [...] patient or guardian consented to allow Iris Rob Gonzalez to record this visit. FARIDEH aviation medicine specialist and provider reviewed before signing. FARIDEH: [...] mg T (more content not included)... Normal [facility] Comment on above: Result Comment: Elec [...] Jason RUSSELL MD Primary Care Physician - VIANY MATTA DO This Is Your Medications List [...] Type 2 diabetes mellitus without complication Normal [facility] Gastroenterology Office/Clin ic Noteon 04-15-2023 Gastroenterology [...] patient or guardian consented to allow Iris Rob Gonzalez to record this visit. FARIDEH aviation medicine specialist and provider reviewed before signing. FARIDEH: Dolores Anderson. Follow-up No qualifying data available Problem List/Past Medical History Ongoing Anemia Anemia due to GI blood loss B12 deficiency Chronic GERD Diabetes Diverticulosis Elevated alkali (more content not included)... Normal [facility] Comment on above: Result Comment: Elec tronically Signed By: Frieda Barajas\.br\Date and Time Signed: 04/15/23 12:50 EDT\.br\Electronically Co-Signed By: Jason RUSSELL MD Other Comment: multi ple sent CBC AUTO DIFFon 03-27-2023 BASO # 0.0 103/ul Normal 0.0-0.1 [facility] Comment on above: Performed By: #### C BC #### [facility] [address] [place] [address] Dr. Anamika Varghese Basophils/100 WBC (Bld) 0.3 % Normal 0.2-2.0 [facility] Comment on above: Performed By: #### C BC #### [facility] [address] [place] [address] Dr. Anamika Varghese EO # 0.1 103/ul Normal 0.0-0.7 [facility] Comment on above: Performed By: #### C BC #### [facility] [address] [place] [address] Dr. Anamika Varghese Eosinophils/100 WBC (Bld) 1.7 % Normal 0.9-7.0 [facility] Comment on above: Performed By: #### C BC #### [facility] [address] [place] [address] Dr. Anamika Varghese Erythrocyte distribution width (RBC) [Ratio] 15.4 % Critically high 11.0-15.0 [facility] Comment on above: Performed By: #### C BC #### [facility] [address] [place] [address] Dr. Anamika Varghese Hematocrit (Bld) [Volume fraction] 32.2 % Critically low 36.0-48.0 [facility] Comment on above: Performed By: #### C BC #### [facility] [address] [place] [address] Dr. Anamika Varghese Hemoglobin (Bld) [Mass/Vol] 10.9 g/dL Critically low 12.0-16.0 [facility] Comment on above: Performed By: #### C BC #### [facility] [address] [place] [address] Dr. Anamika Varghese IG # 0.02 10e3/ul Normal 0.00-0.03 [facility] Comment on above: Performed By: #### C BC #### [facility] [address] [place] [address] Dr. Anamika Varghese IG % 0.3 % Normal 0.0-0.5 [facility] Comment on above: Performed By: #### C BC #### [facility] [address] [place] [address] Dr. Anamika Varghese LYMPH # 1.5 103/ul Normal 1.2-3.8 [facility] Comment on above: Performed By: #### C BC #### [facility] [address] [place] [address] Dr. Anamika Varghese Lymphocytes/100 WBC (Bld) 25.0 % Normal 20.5-60.0 [facility] Comment on above: Performed By: #### C BC #### [facility] [address] [place] [address] Dr. Anamika Varhgese MANUAL DIFF REQ NO Normal [facility] Comment on above: Performed By: #### C BC #### [facility] [address] [place] [address] Dr. Anamika Varghese MCH (RBC) [Entitic mass] 29.0 pg Normal 26.7-34.0 [facility] Comment on above: Performed By: #### C BC #### [facility] [address] [place] [address] Dr. Anamika Varghese MCHC (RBC) [Mass/Vol] 33.9 g/dL Normal 29.9-35.2 [facility] Comment on above: Performed By: #### C BC #### [facility] [address] [place] [address] Dr. Anamika Varghese MCV (RBC) [Entitic vol] 85.6 fL Normal 81.0-99.0 [facility] Comment on above: Performed By: #### C BC #### [facility] [address] [place] [address] Dr. Anamika Varghese MONO # 0.3 103/ul Normal 0.3-0.8 [facility] Comment on above: Performed By: #### C BC #### [facility] [address] [place] [address] Dr. Anamika Varghese Monocytes/100 WBC (Bld) 4.5 % Normal 1.7-12.0 [facility] Comment on above: Performed By: #### C BC #### [facility] [address] [place] [address] Dr. Anamika Varghese NEUT # 4.1 103/ul Normal 1.4-6.5 [facility] Comment on above: Performed By: #### C BC #### [facility] [address] [place] [address] Dr. Anamika Varghese Neutrophils/100 WBC (Bld) 68.2 % Normal 43.0-75.0 [facility] Comment on above: Performed By: #### C BC #### [facility] [address] [place] [address] Dr. Anamika Varghese Platelet mean volume (Bld) [Entitic vol] 8.9 fL Critically low 9.5-13.5 [facility] Comment on above: Performed By: #### C BC #### [facility] [address] [place] [address] Dr. Anamika Varghese PLT 172 103/ul Normal 150-450 [facility] Comment on above: Performed By: #### C BC #### [facility] [address] [place] [address] Dr. Anamika Varghese RBC 3.76 106/ul Critically low 4.20-5.40 [facility] Comment on above: Performed By: #### C BC #### [facility] [address] [place] [address] Dr. Anamika Varghese WBC 6.0 103/ul Normal 4.0-11.0 [facility] Comment on above: Performed By: #### C BC #### [facility] [address] [place] [address] Dr. Anamika Varghese PROF 14(COMP METB)on 023 Albumin [Mass/Vol] 3.5 g/dL Normal 3.4-5.0 [facility] Comment on above: Performed By: #### F ETIBC, FERR, B12FOL #### [facility] [address] [place] [address] Dr. Anamika Varghese Albumin/Globulin [Mass ratio] 1.0 {ratio} Normal [facility] Comment on above: Performed By: #### F ETIBC, FERR, B12FOL #### [facility] [address] [place] [address] Dr. Anamika Varghese ALP [Catalytic activity/Vol] 109 U/L Normal 46-116 [facility] Comment on above: Performed By: #### F ETIBC, FERR, B12FOL #### [facility] [address] [place] [address] Dr. Anamika Varghese ALT [Catalytic activity/Vol] 34 U/L Normal 14-59 [facility] Comment on above: Performed By: #### F ETIBC, FERR, B12FOL #### [facility] [address] [place] [address] Dr. Anamika Varghese Anion gap [Moles/Vol] 13.8 mmol/L Normal Th [facility] Comment on above: Performed By: #### F ETIBC, FERR, B12FOL #### [facility] [address] [place] [address] Dr. Anamika Varghese AST [Catalytic activity/Vol] 20 U/L Normal 15-37 [facility] Comment on above: Performed By: #### F ETIBC, FERR, B12FOL #### [facility] [address] [place] [address] Dr. Anamika Varghese Bilirubin [Mass/Vol] 0.4 mg/dL Normal 0.2-1.0 [facility] Comment on above: Performed By: #### F ETIBC, FERR, B12FOL #### [facility] [address] [place] [address] Dr. Anamika Varghese Calcium [Mass/Vol] 8.7 mg/dL Normal 8.5-10.1 [facility] Comment on above: Performed By: #### F ETIBC, FERR, B12FOL #### [facility] [address] [place] [address] Dr. Anamika Varghese Chloride [Moles/Vol] 107 mmol/L Normal 98-107 [facility] Comment on above: Performed By: #### F ETIBC, FERR, B12FOL #### [facility] [address] [place] [address] Dr. Anamika Varghese CO2 [Moles/Vol] 28.2 mmol/L Normal 21.0-32.0 [facility] Comment on above: Performed By: #### F ETIBC, FERR, B12FOL #### [facility] [address] [place] [address] Dr. Anamika Varghese Creatinine [Mass/Vol] 1.27 mg/dL Critically high 0.55-1.02 [facility] Comment on above: Performed By: #### F ETIBC, FERR, B12FOL #### [facility] [address] [place] [address] Dr. Anamika Varghese EGFR-AF EQUATORIAL GUINEAN 50 mL/min/1.73m2 Critically low >=60 [facility] Comment on above: Performed By: #### F ETIBC, FERR, B12FOL #### [facility] [address] [place] [address] Dr. Anamika Varghese EGFR-NON AF EQUATORIAL GUINEAN 41 mL/min/1.73m2 Critically low >=60 [facility] Comment on above: Performed By: #### F ETIBC, FERR, B12FOL #### [facility] [address] [place] [address] Dr. Anamika Varghese Globulin (S) [Mass/Vol] 3.6 g/dL Normal [facility] Comment on above: Performed By: #### F ETIBC, FERR, B12FOL #### [facility] [address] [place] [address] Dr. Anamika Varghese Glucose [Mass/Vol] 116 mg/dL Critically high 74-106 [facility] Comment on above: Performed By: #### F ETIBC, FERR, B12FOL #### [facility] [address] [place] [address] Dr. Anamika Varghese Potassium [Moles/Vol] 4.0 mmol/L Normal 3.5-5.1 [facility] Comment on above: Performed By: #### F ETIBC, FERR, B12FOL #### [facility] [address] [place] [address] Dr. Anamika Varghese Protein [Mass/Vol] 7.1 g/dL Normal 6.4-8.2 [facility] Comment on above: Performed By: #### F ETIBC, FERR, B12FOL #### [facility] [address] [place] [address] [address] Anamika Varghese Sodium [Moles/Vol] 145 mmol/L Normal 136-145 [facility] Comment on above: Performed By: #### F ETIBC, FERR, B12FOL #### [facility] [address] [place] [address] [address] Anamika Varghese Urea nitrogen [Mass/Vol] 24.0 mg/dL Critically high 7.0-18.0 [facility] Comment on above: Performed By: #### F ETIBC, FERR, B12FOL #### [facility] [address] [place] [address] [address] Anamika Varghese Urea nitrogen/Creatinine [Mass ratio] 18.9 mg/mg Normal [facility] Comment on above: Performed By: #### F ETIBC, FERR, B12FOL #### [facility] [address] [place] [address] [address] Anamika Varghese Basic Metabolic Panelon 02-15 Anion gap [Moles/Vol] Not performed Normal 6.0-15.0 [facility] Comment on above: Performed By: #### L IPID, CMP, A1C WTH eA, CBC #### [facility] [address] [place] [address] [place] Calcium [Mass/Vol] 8.5 mg/dL Low 8.6-10.3 [facility] Comment on above: Performed By: #### L IPID, CMP, A1C WTH eA, CBC #### [facility] [address] [place] [address] [place] Chloride [Moles/Vol] 103 mmol/L Normal 98-107 [facility] Comment on above: Performed By: #### L IPID, CMP, A1C WTH eA, CBC #### [facility] [address] [place] [address] [place] CO2 [Moles/Vol] 29.6 mmol/L Normal 21.0-31.0 [facility] Comment on above: Performed By: #### L IPID, CMP, A1C WTH eA, CBC #### [facility] [address] Creatinine [Mass/Vol] 1.35 mg/dL High 0.60-1.20 [facility] Comment on above: Performed By: #### L IPIDRISHABH, A1C WTH eA, CBC #### [facility] [address] [place] [address] [place] Creatinine Clr Calc Pharmacy 39.70 [facility] Comment on above: Result Comment: PERF ORMED BY: [place] [address] PATHOLOGIST [employer]AD WORK GATHERER THERESA MULLER M.D. Performed By: #### L IPIDRISHABH, A1C WTH eA, CBC #### [address] GFR/1.73 sq M.predicted MDRD (S/P/Bld) [Vol rate/Area] 41.239 mL/min/{1.73_m2} [facility] Comment on above: Performed By: #### L IPIDRISHABH, A1C WTH eA, CBC #### [address] Glucose [Mass/Vol] 130 mg/dL High 70-100 [facility] Comment on above: Result Comment: [facility] Glucose Reference Range is dependent on time and content of last meal. Glucose of more than 200 mg/dL in a nonstressed, ambulatory subject supports the diagnosis of Diabetes Mellitus. ADA recommended reference range Performed By: #### L IPIDRISHABH, A1C WTH eA, CBC #### [facility] [address] [place] [address] Potassium Normal 3.5-5.1 [facility] Comment on above: Result Comment: Spec imen hemolyzed, redraw requested Performed By: #### L IPIDRISHABH, A1C WTH eA, CBC #### [address] Sodium [Moles/Vol] 141 mmol/L Normal 136-145 [facility] Comment on above: Performed By: #### L IPIDRISHABH, A1C WTH eA, CBC #### [facility] [address] Urea nitrogen [Mass/Vol] 28 mg/dL High 7-25 [facility] Comment on above: Performed By: #### L IPID, CMP, A1C WTH eA, CBC #### [facility] [address] [place] [address] [place] Basophils Auto (Bld) [#/Vol] Ordered By: Kimberly Arteaga on 03-13-2023 Basophils (Bld) [#/Vol] 0.0 10*3/uL 0.0-0.2 [facility] Basophils/100 WBC Auto (Bld) Ordered By: Kimberly Arteaga on 03-13-2023 Basophils/100 WBC (Bld) 0.4 % . [facility] Calcium [Mass/volume] in Ser um or PlasmaOrdered By: Kimberly Arteaga on 03-13-2023 Calcium [Mass/Vol] 8.5 mg/dL 8.6-10.3 [facility] Carbon dioxide, total [Moles /volume] in Serum or PlasmaOrdered By: Kimberly Arteaga on 03-13-2023 CO2 [Moles/Vol] 29.6 mmol/L 21.0-31.0 [facility] Chloride [Moles/volume] in S hilda or PlasmaOrdered By: Kimberly Arteaga on 03-13-2023 Chloride [Moles/Vol] 103 mmol/L 98-107 [facility] Complete Blood Count Auto Di ffon 03-13-2023 Basophils (Bld) [#/Vol] 0.0 10*3/uL Normal 0.0-0.2 [facility] Comment on above: Result Comment: PERF ORMED BY: [facility] [address] [place] [address] PATHOLOGIST [employer] WORK GATHERER THERESA MULLER M.D. Performed By: #### L IPID, BMP, CBC #### [facility] [address] [place] [address] [place] Basophils/100 WBC (Bld) 0.4 % Normal . [facility] Comment on above: Performed By: #### L IPID, BMP, CBC #### [facility] [address] Eosinophils (Bld) [#/Vol] 0.1 10*3/uL Normal 0.0-0.45 [facility] Comment on above: Performed By: #### L IPID, BMP, CBC #### [facility] [address] Eosinophils/100 WBC (Bld) 1.7 % Normal . [facility] Comment on above: Performed By: #### L IPID, BMP, CBC #### [address] Erythrocyte distribution width (RBC) [Ratio] 16.8 % High 11.9-15.3 [facility] Comment on above: Performed By: #### L IPID, BMP, CBC #### [address] Hematocrit (Bld) [Volume fraction] 32.5 % Low 34.0-46.4 [facility] Comment on above: Performed By: #### L IPID, BMP, CBC #### [address] Hemoglobin (Bld) [Mass/Vol] 10.9 g/dL Low 11.8-15.4 [facility] Comment on above: Performed By: #### L IPID, BMP, CBC #### [place] [address] [place] Lymphocytes (Bld) [#/Vol] 1.4 10*3/uL Normal 1.00-4.8 [facility] Comment on above: Performed By: #### L IPID, BMP, CBC #### [place] [address] [place] Lymphocytes/100 WBC (Bld) 28.5 % Normal . [facility] Comment on above: Performed By: #### L IPID, BMP, CBC #### [facility] [address] [place] [address] MCH (RBC) [Entitic mass] 28.6 pg Normal 24.7-34.3 [facility] Comment on above: Performed By: #### L IPID, BMP, CBC #### [facility] [address] MCV (RBC) [Entitic vol] 85.3 fL Normal 80-100 [facility] Comment on above: Performed By: #### L IPID, BMP, CBC #### [facility] [address] [place] [address] Mean Corpuscular HGB Conc 33.5 g/dL Normal 32.0-35.0 [facility] Comment on above: Performed By: #### L IPID, BMP, CBC #### [address] Monocytes (Bld) [#/Vol] 0.3 10*3/uL Normal 0.0-0.8 [facility] Comment on above: Performed By: #### L IPID, BMP, CBC #### [address] Monocytes/100 WBC (Bld) 6.9 % Normal . [facility] Comment on above: Performed By: #### L IPID, BMP, CBC #### [facility] [address] [place] [address] Neutrophils (Bld) [#/Vol] 3.1 10*3/uL Normal 1.8-7.7 [facility] Comment on above: Performed By: #### L IPID, BMP, CBC #### [place] [address] [place] Neutrophils/100 WBC (Bld) 62.5 % Normal . [facility] Comment on above: Performed By: #### L IPID, BMP, CBC #### [facility] [address] [place] [address] [place] NRBC% 0.1 /100{WBC} Normal 0-0.5 [facility] Comment on above: Performed By: #### L IPID, BMP, CBC #### [facility] [address] [place] [address] Platelet mean volume (Bld) [Entitic vol] 7.2 fL Normal 6.3-10.7 [facility] Comment on above: Performed By: #### L IPID, BMP, CBC #### [facility] [address] Platelets (Bld) [#/Vol] 152 10*3/uL Normal 150-450 [facility] Comment on above: Performed By: #### L IPID, BMP, CBC #### [facility] [address] RBC (Bld) [#/Vol] 3.81 10*6/uL Normal 3.60-5.00 [facility] Comment on above: Performed By: #### L IPID, BMP, CBC #### [facility] [address] WBC (Bld) [#/Vol] 5.0 10*3/uL Normal 3.8-11.6 [facility] Comment on above: Performed By: #### L IPID, BMP, CBC #### [facility] [address] Creatinine [Mass/volume] in Serum or PlasmaOrdered By: Kimberly Arteaga on 03-13-2023 Creatinine [Mass/Vol] 1.35 mg/dL 0.60-1.20 [facility] Eosinophils Auto (Bld) [#/Vo l]Ordered By: Kimberly Arteaga on 03-13-2023 Eosinophils (Bld) [#/Vol] 0.1 10*3/uL 0.0-0.45 [facility] Eosinophils/100 WBC Auto (Bl d)Ordered By: Kimberly Arteaga on 03-13-2023 Eosinophils/100 WBC (Bld) 1.7 % . [facility] Erythrocyte distribution wid th Auto (RBC) [Ratio]Ordered By: Kimberly Arteaga on 03-13-2023 Erythrocyte distribution width (RBC) [Ratio] 16.8 % 11.9-15.3 [facility] Glucose Glucometer (BldC) [M ass/Vol]Ordered By: Kimberly Arteaga on 03-13-2023 Glucose [Mass/Vol] 162 mg/dL [facility] Comment on above: Random Glucose Refer ence Range is dependent on time and content of last meal. Glucose of more than 200 mg/dL in a nonstressed, ambulatory subject supports the diagnosis of Diabetes Mellitus. Glucose Poct Glucometerson 0 03-13-2023 Glucose [Mass/Vol] 162 mg/dL Normal [facility] Comment on above: Result Comment: [place] [facility] Glucose Reference Range is dependent on time and content of last meal. Glucose of more than 200 mg/dL in a nonstressed, ambulatory subject supports the diagnosis of Diabetes Mellitus. PERFORMED BY: [facility] [address] [place] [address] PATHOLOGIST BAD WORK GATHERER THERESA MULLER M.D. Performed By: #### G LUTARIQ #### Point of Care testing , Glucose [Mass/volume] in Ser um or PlasmaOrdered By: Kimberly Arteaga on 03-13-2023 Glucose [Mass/Vol] 130 mg/dL 70-100 [facility] Comment on above: ADA recommended refe rence rangeRandom Glucose Reference Range is dependent on time and content of last meal. Glucose of more than 200 mg/dL in a nonstressed, ambulatory subject supports the diagnosis of Diabetes Mellitus. Hematocrit Auto (Bld) [Volum e fraction]Ordered By: Kimberly Arteaga on 03-13-2023 Hematocrit (Bld) [Volume fraction] 32.5 % 34.0-46.4 [facility] Hemoglobin [Mass/volume] in BloodOrdered By: Kimberly Arteaga on 03-13-2023 Hemoglobin (Bld) [Mass/Vol] 10.9 g/dL 11.8-15.4 [facility] Leukocytes [#/volume] correc remberto for nucleated erythrocytes in Blood by Automated counOrdered By: Kimberly Arteaga on 03-13-2023 WBC corrected for nucl RBC Auto (Bld) [#/Vol] 5.0 10*3/uL 3.8-11.6 [facility] Lymphocytes Auto (Bld) [#/Vo l]Ordered By: Kimberly Arteaga on 03-13-2023 Lymphocytes (Bld) [#/Vol] 1.4 10*3/uL 1.00-4.8 [facility] Lymphocytes/100 WBC Auto (Bl d)Ordered By: Kimberly Arteaga on 03-13-2023 Lymphocytes/100 WBC (Bld) 28.5 % . [facility] MCH Auto (RBC) [Entitic mass ]Ordered By: Kimberly Arteaga on 03-13-2023 MCH (RBC) [Entitic mass] 28.6 pg 24.7-34.3 [facility] MCHC Auto (RBC) [Mass/Vol]Or dered By: Kimberly Arteaga on 03-13-2023 MCHC (RBC) [Mass/Vol] 33.5 g/dL 32.0-35.0 [facility] MCV Auto (RBC) [Entitic vol] Ordered By: Kimberly Arteaga on 03-13-2023 MCV (RBC) [Entitic vol] 85.3 fL 80-100 [facility] Monocytes Auto (Bld) [#/Vol] Ordered By: Kimberly Arteaga on 03-13-2023 Monocytes (Bld) [#/Vol] 0.3 10*3/uL 0.0-0.8 [facility] Monocytes/100 WBC Auto (Bld) Ordered By: Kimberly Arteaga on 03-13-2023 Monocytes/100 WBC (Bld) 6.9 % . [facility] Neutrophils Auto (Bld) [#/Vo l]Ordered By: Kimberly Arteaga on 03-13-2023 Neutrophils (Bld) [#/Vol] 3.1 10*3/uL 1.8-7.7 [facility] Neutrophils/100 WBC Auto (Bl d)Ordered By: Kimberly Arteaga on 03-13-2023 Neutrophils/100 WBC (Bld) 62.5 % . [facility] No Panel InformationOrdered By: Kimberly Arteaga on 03-13-2023 Estimated GFR (CKD-EPI) 41.239 mL/Min [facility] Creatinine Clearance (Chem 39.70 [facility] Nucleated erythrocytes [Pres ence] in Blood by Automated countOrdered By: Kimberly Arteaga on 03-13-2023 Nucleated RBC Auto Ql (Bld) 0.1 /100{WBC} 0-0.5 [facility] Platelet mean volume Auto (B ld) [Entitic vol]Ordered By: Kimberly Arteaga on 03-13-2023 Platelet mean volume (Bld) [Entitic vol] 7.2 fL 6.3-10.7 [facility] Platelets Auto (Bld) [#/Vol] Ordered By: Kimberly Arteaga on 03-13-2023 Platelets (Bld) [#/Vol] 152 10*3/uL 150-450 [facility] Potassium [Moles/volume] in Serum or PlasmaOrdered By: Kimberly Arteaga on 03-13-2023 Potassium [Moles/Vol] 3.8 mmol/L 3.5-5.1 [facility] RBC Auto (Bld) [#/Vol]Ordere d By: Kimberly Arteaga on 03-13-2023 RBC (Bld) [#/Vol] 3.81 10*6/uL 3.60-5.00 [facility] Redraw Potassiumon Potassium [Moles/Vol] 3.8 mmol/L Normal 3.5-5.1 [facility] Comment on above: Order Comment: PREVI OUS SPECIMEN HEMOLYZED. Result Comment: PERF ORMED BY: [place] [address] PATHOLOGIST BAD WORK GATHERER THERESA MULLER M.D. Performed By: #### L IPID, BMP, CBC #### [facility] [address] [place] [address] Serum or plasma anion gap de terminationOrdered By: Kimberly Arteaga on 03-13-2023 Anion gap [Moles/Vol] TNP [facility] Comment on above: Test not performed Sodium [Moles/volume] in Ser um or PlasmaOrdered By: Kimberly Arteaga on 03-13-2023 Sodium [Moles/Vol] 141 mmol/L 136-145 [facility] Urea nitrogen [Mass/volume] in Serum or PlasmaOrdered By: Kimberly Arteaga on 03-13-2023 Urea nitrogen [Mass/Vol] 28 mg/dL 7-25 [facility] WBC Auto (Bld) [#/Vol]Ordere d By: Kimberlygabibe Arteaga on 03-13-2023 WBC (Bld) [#/Vol] 5.0 10*3/uL 3.8-11.6 [facility] Basic Metabolic Panelon 02-15 Anion gap [Moles/Vol] Not performed Normal 6.0-15.0 [facility] Comment on above: Performed By: #### L IPID BMP, CBC #### [facility] [address] [place] [address] [place] Calcium [Mass/Vol] 7.9 mg/dL Low 8.6-10.3 [facility] Comment on above: Performed By: #### L IPID BMP, CBC #### [facility] [address] Chloride [Moles/Vol] 103 mmol/L Normal 98-107 [facility] Comment on above: Performed By: #### L IPID BMP, CBC #### [facility] [address] [place] [address] [place] CO2 [Moles/Vol] 28.1 mmol/L Normal 21.0-31.0 [facility] Comment on above: Performed By: #### L IPID BMP, CBC #### [facility] [address] [place] [address] [place] Creatinine [Mass/Vol] 1.74 mg/dL High 0.60-1.20 [facility] Comment on above: Performed By: #### L IPID BMP, CBC #### [facility] [address] [place] [address] [place] Creatinine Clr Calc Pharmacy 30.80 [facility] Comment on above: Performed By: #### L IPID BMP, CBC #### [facility] [address] [place] [address] [place] GFR/1.73 sq M.predicted MDRD (S/P/Bld) [Vol rate/Area] 30.413 mL/min/{1.73_m2} [facility] Comment on above: Performed By: #### L IPID, BMP, CBC #### [facility] [address] [place] [address] [place] Glucose [Mass/Vol] 121 mg/dL High 70-100 [facility] Comment on above: Result Comment: [facility] Glucose Reference Range is dependent on time and content of last meal. Glucose of more than 200 mg/dL in a nonstressed, ambulatory subject supports the diagnosis of Diabetes Mellitus. ADA recommended reference range Performed By: #### L IPID BMP, CBC #### [facility] [address] [place] [id number] [facility] Potassium Normal 3.5-5.1 [facility] Comment on above: Result Comment: Spec imen hemolyzed, redraw requested Performed By: #### L IPJASON BMP, CBC #### [facility] [address] Sodium [Moles/Vol] 141 mmol/L Normal 136-145 [facility] Comment on above: Performed By: #### L IPID BMP, CBC #### [facility] [address] [place] [id number] [place] Urea nitrogen [Mass/Vol] 38 mg/dL High 7-25 [facility] Comment on above: Performed By: #### L IPJASON BMP, CBC #### [facility] [address] [place] [id number] [facility] Cholesterol [Mass/volume] in Serum or PlasmaOrdered By: Kimberly Arteaga on 03-12-2023 Cholesterol [Mass/Vol] 118 mg/dL 140-200 [facility] Comment on above: Chol less than 200 m g/dl low riskChol 201-239 mg/dl borderline riskChol 240 mg/dl and greater high risk Cholesterol in LDL Calc [Mas s/Vol]Ordered By: Kimberly Arteaga on 03-12-2023 Cholesterol in LDL [Mass/Vol] 51 mg/dL 0-100 [facility] Comment on above: LDL ATP III CLASSIFI CATIONLDL less than 100 mg/dL OptimalLDL 100-129 mg/dL Near or above optimalLDL 130-159 mg/dL Borderline highLDL 160-189 mg/dL HighLDL greater than 189 mg/dL Very high Cholesterol in VLDL Calc [Ma ss/Vol]Ordered By: Kimberly Arteaga on 03-12-2023 Cholesterol in VLDL [Mass/Vol] 32 mg/dL [facility] Complete Blood Count Auto Di ffon 03-12-2023 Basophils (Bld) [#/Vol] 0.0 10*3/uL Normal 0.0-0.2 [facility] Comment on above: Result Comment: PERF ORMED BY: [place] [address] PATHOLOGIST [employer]AD WORK GATHERER THERESA MULLER M.D. Performed By: #### L IPID, BMP, CBC #### [facility] [address] Basophils/100 WBC (Bld) 0.3 % Normal . [facility] Comment on above: Performed By: #### L IPID, BMP, CBC #### [facility] [address] [place] [address] [place] Eosinophils (Bld) [#/Vol] 0.1 10*3/uL Normal 0.0-0.45 [facility] Comment on above: Performed By: #### L IPID, BMP, CBC #### [facility] [address] [place] [address] Eosinophils/100 WBC (Bld) 2.1 % Normal . [facility] Comment on above: Performed By: #### L IPID, BMP, CBC #### [facility] [address] [place] [address] Erythrocyte distribution width (RBC) [Ratio] 17.1 % High 11.9-15.3 [facility] Comment on above: Performed By: #### L IPID, BMP, CBC #### [facility] [address] Hematocrit (Bld) [Volume fraction] 28.7 % Low 34.0-46.4 [facility] Comment on above: Performed By: #### L IPID, BMP, CBC #### [facility] [address] Hemoglobin (Bld) [Mass/Vol] 9.7 g/dL Low 11.8-15.4 [facility] Comment on above: Performed By: #### L IPID, BMP, CBC #### [facility] [address] [place] [address] Lymphocytes (Bld) [#/Vol] 1.3 10*3/uL Normal 1.00-4.8 [facility] Comment on above: Performed By: #### L IPID, BMP, CBC #### [address] Lymphocytes/100 WBC (Bld) 32.1 % Normal . [facility] Comment on above: Performed By: #### L IPID, BMP, CBC #### [address] MCH (RBC) [Entitic mass] 28.9 pg Normal 24.7-34.3 [facility] Comment on above: Performed By: #### L IPID, BMP, CBC #### [address] MCV (RBC) [Entitic vol] 85.2 fL Normal 80-100 [facility] Comment on above: Performed By: #### L IPID, BMP, CBC #### [address] Mean Corpuscular HGB Conc 33.9 g/dL Normal 32.0-35.0 [facility] Comment on above: Performed By: #### L IPID, BMP, CBC #### [place] [address] [place] Monocytes (Bld) [#/Vol] 0.3 10*3/uL Normal 0.0-0.8 [facility] Comment on above: Performed By: #### L IPID, BMP, CBC #### [place] [address] [place] Monocytes/100 WBC (Bld) 6.6 % Normal . [facility] Comment on above: Performed By: #### L IPID, BMP, CBC #### [place] [address] [place] Neutrophils (Bld) [#/Vol] 2.4 10*3/uL Normal 1.8-7.7 [facility] Comment on above: Performed By: #### L IPID BMP, CBC #### [address] Neutrophils/100 WBC (Bld) 58.9 % Normal . [facility] Comment on above: Performed By: #### L IPID BMP, CBC #### [address] NRBC% 0.1 /100{WBC} Normal 0-0.5 [facility] Comment on above: Performed By: #### L IPID BMP, CBC #### [address] Platelet mean volume (Bld) [Entitic vol] 7.4 fL Normal 6.3-10.7 [facility] Comment on above: Performed By: #### L IPID BMP, CBC #### [address] Platelets (Bld) [#/Vol] 117 10*3/uL Significant change down 150-450 [facility] Comment on above: Performed By: #### L IPJASON BMP, CBC #### [address] RBC (Bld) [#/Vol] 3.36 10*6/uL Low 3.60-5.00 [facility] Comment on above: Performed By: #### L IPID BMP, CBC #### [address] WBC (Bld) [#/Vol] 4.0 10*3/uL Normal 3.8-11.6 [facility] Comment on above: Performed By: #### L IPID BMP, CBC #### [address] ECH echo transthoracicon ECH echo transthoracic [facility] [address] [place] [address] Echocardiogram Signed Patient: Anh Tejeda MR#: [id number] 036 : 1950 Acct:[id number] Age/Sex: 72 / F ADM Date: 03/11/23 Loc: Room: [address] [place] [address] Type: ADM IN Attending Dr: Kimberly Arteaga MD Ordering Provider: Kimberly Arteaga MD Date of Service: 03/11/23 ECH/ECH echo transthoracic: stroke with bubble study Copies to: Karl Padilla MD, [facility] Kimberly Arteaga MD BSA: 2.0 m2 BP: [...] mmHg RAP systole: 3.0 mmHg Transcribed By: SCBran Performed At: 03/12/23 1404 Signed By: Karl Padilla MD, [facility] 03/12/23 1554 Normal [facility] Glucose Poct Glucometerson 0 03-12-2023 Glucose [Mass/Vol] 303 mg/dL Normal [facility] Comment on above: Result Comment: [place] Glucose Reference Range is dependent on time and content of last meal. Glucose of more than 200 mg/dL in a nonstressed, ambulatory subject supports the diagnosis of Diabetes Mellitus. PERFORMED BY: [facility] [address] PATHOLOGIST BAD WORK GATHERER THERESA MULLER M.D. Performed By: #### L IPID, CMP, A1C WTH eA, CBC #### [facility] [address] [place] [address] [place] Glucose [Mass/Vol] 103 mg/dL Normal [facility] Comment on above: Result Comment: [place] [facility] Glucose Reference Range is dependent on time and content of last meal. Glucose of more than 200 mg/dL in a nonstressed, ambulatory subject supports the diagnosis of Diabetes Mellitus. PERFORMED BY: [place] [phone] PATHOLOGIST BAD WORK GATHERER THERESA MULLER M.D. Performed By: #### L IPID, BMP, CBC #### [place] [address] [place] Glucose [Mass/Vol] 359 mg/dL Normal [facility] Comment on above: Result Comment: [place] [facility] Glucose Reference Range is dependent on time and content of last meal. Glucose of more than 200 mg/dL in a nonstressed, ambulatory subject supports the diagnosis of Diabetes Mellitus. PERFORMED BY: [place] [phone] PATHOLOGIST BAD WORK GATHERER THERESA MULLER M.D. Performed By: #### L IPID, BMP, CBC #### [facility] [address] [place] [address] [place] Glucose [Mass/Vol] 142 mg/dL Normal [facility] Comment on above: Result Comment: [place] [facility] Glucose Reference Range is dependent on time and content of last meal. Glucose of more than 200 mg/dL in a nonstressed, ambulatory subject supports the diagnosis of Diabetes Mellitus. PERFORMED BY: [place] [address] PATHOLOGIST BAD WORK GATHERER THERESA MULLER M.D. Performed By: #### G LULS #### Point of Care testing , Lipid Panelon 03-12-2023 Cholesterol [Mass/Vol] 118 mg/dL Low 140-200 [facility] Comment on above: Result Comment: Chol less than 200 mg/dl low risk Chol 201-239 mg/dl borderline risk Chol 240 mg/dl and greater high risk Performed By: #### L IPJASON BMP, CBC #### [facility] [address] Cholesterol in HDL [Mass/Vol] 35 mg/dL Normal 35-85 [facility] Comment on above: Result Comment: HDL CHOL ATP-III CLASSIFICATION Cardiovascular Risk HDL > or equal to 60 mg/dL LOW HDL < 40 mg/dL HIGH Performed By: #### L IPID, BMP, CBC #### [facility] [address] Cholesterol.total/Chol esterol in HDL [Mass ratio] 3.4 {ratio} Normal <5.0 [facility] Comment on above: Result Comment: PERF ORMED BY: [place] [address] PATHOLOGIST BAD WORK GATHERER THERESA MULLER M.D. Performed By: #### L IPJASON BMP, CBC #### [facility] [address] LDL Cholesterol,Calculated 51 mg/dL Normal 0-100 [facility] Comment on above: Result Comment: LDL ATP III CLASSIFICATION LDL less than 100 mg/dL Optimal LDL 100-129 mg/dL Near or above optimal LDL 130-159 mg/dL Borderline high LDL 160-189 mg/dL High LDL greater than 189 mg/dL Very high Performed By: #### L IPJASON BMP, CBC #### [facility] [address] Triglyceride w/Reflex 160 mg/dL High 0-149 [facility] Comment on above: Result Comment: TRIG ATP III CLASSIFICATION TRIG less than 150 mg/dL Normal TRIG 150-199 mg/dL Borderline high TRIG 200-500 mg/dL High TRIG greater than 500 mg/dL Very high Standard traceable to the Center for Disease Conrtrol and Prevention (CDC) test method. Performed By: #### L IPID, BMP, CBC #### [facility] [address] VLDL CHOLESTEROL 32 mg/dL Normal [facility] Comment on above: Performed By: #### L IPID, BMP, CBC #### [facility] [address] MR head/brain wo conon 03-12 MR head/brain wo con [facility] [address] [place] [address] MRI Report Signed Patient: Anh Tejeda MR#: [id number] 036 : 1950 Acct:[id number] Age/Sex: 72 / F ADM Date: 03/11/23 Loc: 3T Room: [address] [place] [address] Type: ADM IN Attending Dr: Kimberly Arteaga [...] Riki Garnica M.D.03/12/2023 8:58 AM Dictation Location: [place] [address] Transcribed By: [facility] 03/12/23 0858 Dictated By: Riki Garnica II, MD 03/12/23 0849 Signed By: 03/12/23 0858 Normal [facility] Redraw Potassiumon 3 Potassium [Moles/Vol] 4.4 mmol/L Normal 3.5-5.1 [facility] Comment on above: Result Comment: PERF ORMED BY: [facility] [address] [place] [address] PATHOLOGIST BAD WORK GATHERER THERESA MULLER M.D. Performed By: #### L IPID, BMP, CBC #### [facility] [address] Serum or plasma high density lipoprotein (HDL) cholesterol measurementOrdered By: Kimberly Arteaga on 03-12-2023 Cholesterol in HDL [Mass/Vol] 35 mg/dL 35-85 [facility] Comment on above: HDL CHOL ATP-III CLA SSIFICATION Cardiovascular RiskHDL > or equal to 60 mg/dL LOWHDL < 40 mg/dL HIGH Serum or plasma total choles terol/high density lipoprotein (HDL) cholesterol mass ratOrdered By: Kimberly Arteaga on 03-12-2023 Cholesterol.total/Chol esterol in HDL [Mass ratio] 3.4 {ratio} <5.0 [facility] Triglyceride [Mass/volume] i n Serum or PlasmaOrdered By: Kimberly Arteaga on 03-12-2023 Triglyceride [Mass/Vol] 160 mg/dL 0-149 [facility] Comment on above: TRIG ATP III [...] aPTT Coag (PPP) [Time] 33.9 s 25.1-36.5 [facility] Automated erythrocytes count in urine sediment (number/area)Ordered By: Lamin Rose on 03-11-2023 RBC Auto (Urine sed) [#/Area] 0-1 [HPF] 0-4 [facility] Automated leukocytes count i n urine sediment (number/area)Ordered By: Lamin Rose on 03-11-2023 WBC Auto (Urine sed) [#/Area] 10-19 [HPF] 0-4 [facility] Basic Metabolic Panelon 02-15 Anion gap [Moles/Vol] 15.4 mmol/L High 6.0-15.0 [facility] Comment on above: Performed By: #### L IPID, CMP, A1C WTH eA, CBC #### [facility] [address] Calcium [Mass/Vol] 8.3 mg/dL Low 8.6-10.3 [facility] Comment on above: Performed By: #### L IPID, CMP, A1C WTH eA, CBC #### [facility] [address] [place] [address] [place] Chloride [Moles/Vol] 104 mmol/L Normal 98-107 [facility] Comment on above: Performed By: #### L IPID, CMP, A1C WTH eA, CBC #### [facility] [address] CO2 [Moles/Vol] 26.9 mmol/L Normal 21.0-31.0 [facility] Comment on above: Performed By: #### L IPID, CMP, A1C WTH eA, CBC #### [facility] [address] [place] [address] [place] Creatinine [Mass/Vol] 1.61 mg/dL High 0.60-1.20 [facility] Comment on above: Performed By: #### L IPID, CMP, A1C WTH eA, CBC #### [facility] [address] [place] [address] [place] Creatinine Clr Calc Pharmacy 33.67 Normal [facility] Comment on above: Result Comment: PERF ORMED BY: [place] [address] PATHOLOGIST BAD WORK GATHERER THERESA MULLER M.D. Performed By: #### L IPID, CMP, A1C WTH eA, CBC #### [facility] [address] [place] [id number] [place] GFR/1.73 sq M.predicted MDRD (S/P/Bld) [Vol rate/Area] 33.383 mL/min/{1.73_m2} Normal [facility] Comment on above: Performed By: #### L IPID, CMP, A1C WTH eA, CBC #### [facility] [address] [place] [address] [place] Glucose [Mass/Vol] 164 mg/dL High 70-100 [facility] Comment on above: Result Comment: [facility] Glucose Reference Range is dependent on time and content of last meal. Glucose of more than 200 mg/dL in a nonstressed, ambulatory subject supports the diagnosis of Diabetes Mellitus. ADA recommended reference range Performed By: #### L IPID, CMP, A1C WTH eA, CBC #### [facility] [address] [place] [address] [place] Potassium [Moles/Vol] 4.3 mmol/L Normal 3.5-5.1 [facility] Comment on above: Performed By: #### L IPID, CMP, A1C WTH eA, CBC #### [facility] [address] [place] [address] [place] Sodium [Moles/Vol] 142 mmol/L Normal 136-145 [facility] Comment on above: Performed By: #### L IPID, CMP, A1C WTH eA, CBC #### [facility] [address] [place] [address] [place] Urea nitrogen [Mass/Vol] 37 mg/dL High 7-25 [facility] Comment on above: Performed By: #### L IPID, CMP, A1C WTH eA, CBC #### [facility] [address] [place] [id number] [place] Bilirubin Test strip Ql (U)O rdered By: Lamin Rose on 03-11-2023 Bilirubin Ql (U) Negative Negative [facility] CT angio neckon 03-11-2023 CT angio neck [facility] [address] [place] [address] CT Scan Report Signed Patient: Anh Tejeda MR#: [id number] 036 : 1950 Acct:[id number] Age/Sex: 72 / F ADM Date: 03/11/23 Loc: ER Room: Type: [facility] ER Attending Dr: Copies to: Lamin Rose MD Ordering Provider: Lamin Rose MD Date of Service: 03/11/23 CT/CT angio head: Stroke alert ([id number]) CT/CT angio neck: Stroke alert CT angio [...] Riki Garnica M.D.03/11/2023 4:03 PM Dictation Location: [place] [address] Transcribed By: [place] 03/11/23 6959 Dictated By: Riki Garnica II, MD 03/11/23 3839 Signed By: 03/11/23 1602 Normal [facility] CT head stroke alert wo cono n 03-11-2023 CT head stroke alert wo con [facility] [address] [place], [place] [id number] CT Scan Report Signed Patient: Anh Tejeda MR#: [id number] 036 : 1950 Acct:[id number] Age/Sex: 72 / F ADM Date: 03/11/23 Loc: ER Room: Type: [facility] ER Attending Dr: Copies to: Lamin [...] Riki Garnica M.D.03/11/2023 3:55 PM Dictation Location: [place] [address] Transcribed By: MT 03/11/23 5969 Dictated By: Riki Garnica II, MD 03/11/23 1549 Signed By: 03/11/23 1555 Normal [facility] Color Auto (U)Ordered By: Sobeida Rose on 03-11-2023 Color (U) Yellow Yellow [facility] Complete Blood Count Auto Di ffon 03-11-2023 Basophils (Bld) [#/Vol] 0.0 10*3/uL Normal 0.0-0.2 [facility] Comment on above: Result Comment: PERF ORMED BY: [place] [address] PATHOLOGIST BAD WORK GATHERER THERESA MULLER M.D. Performed By: #### L IPID, BMP, CBC #### [facility] [address] [place] [address] Basophils/100 WBC (Bld) 0.4 % Normal . [facility] Comment on above: Performed By: #### L IPID, BMP, CBC #### [facility] [address] [place] [address] Eosinophils (Bld) [#/Vol] 0.1 10*3/uL Normal 0.0-0.45 [facility] Comment on above: Performed By: #### L IPID, BMP, CBC #### [facility] [address] [place] [address] Eosinophils/100 WBC (Bld) 1.4 % Normal . [facility] Comment on above: Performed By: #### L IPID, BMP, CBC #### [facility] [address] [place] [address] [place] Erythrocyte distribution width (RBC) [Ratio] 16.8 % High 11.9-15.3 [facility] Comment on above: Performed By: #### L IPID, BMP, CBC #### [facility] [address] [place] [address] Hematocrit (Bld) [Volume fraction] 32.0 % Low 34.0-46.4 [facility] Comment on above: Performed By: #### L IPID, BMP, CBC #### [facility] [address] [place] [address] [place] Hemoglobin (Bld) [Mass/Vol] 10.7 g/dL Low 11.8-15.4 [facility] Comment on above: Performed By: #### L IPID BMP, CBC #### [address] Lymphocytes (Bld) [#/Vol] 1.4 10*3/uL Normal 1.00-4.8 [facility] Comment on above: Performed By: #### L IPID BMP, CBC #### [address] Lymphocytes/100 WBC (Bld) 24.2 % Normal . [facility] Comment on above: Performed By: #### L IPID BMP, CBC #### [address] MCH (RBC) [Entitic mass] 28.6 pg Normal 24.7-34.3 [facility] Comment on above: Performed By: #### L IPID BMP, CBC #### [address] MCV (RBC) [Entitic vol] 85.5 fL Normal 80-100 [facility] Comment on above: Performed By: #### L IPID BMP, CBC #### [address] Mean Corpuscular HGB Conc 33.5 g/dL Normal 32.0-35.0 [facility] Comment on above: Performed By: #### L IPID BMP, CBC #### [address] Monocytes (Bld) [#/Vol] 0.3 10*3/uL Normal 0.0-0.8 [facility] Comment on above: Performed By: #### L IPID BMP, CBC #### [address] Monocytes/100 WBC (Bld) 17.19 % Normal 0.00-20.00 [facility] Comment on above: Performed By: #### L IPID BMP, CBC #### [address] [address] [place] [address] [place] Monocytes/100 WBC (Bld) 6.1 % Normal . [facility] Comment on above: Performed By: #### L IPID, BMP, CBC #### [facility] [address] [place] [address] [place] Neutrophils (Bld) [#/Vol] 3.9 10*3/uL Normal 1.8-7.7 [facility] Comment on above: Performed By: #### L IPID, BMP, CBC #### [facility] [address] [place] [address] [place] Neutrophils/100 WBC (Bld) 67.9 % Normal . [facility] Comment on above: Performed By: #### L IPID, BMP, CBC #### [facility] [address] [place] [address] [place] NRBC% 0.1 /100{WBC} Normal 0-0.5 [facility] Comment on above: Performed By: #### L IPID, BMP, CBC #### [facility] [address] [place] [address] [place] Platelet mean volume (Bld) [Entitic vol] 7.5 fL Normal 6.3-10.7 [facility] Comment on above: Performed By: #### L IPID, BMP, CBC #### [facility] [address] [place] [address] [place] Platelets (Bld) [#/Vol] 145 10*3/uL Low 150-450 [facility] Comment on above: Performed By: #### L IPID, BMP, CBC #### [facility] [address] [place] [address] [place] RBC (Bld) [#/Vol] 3.75 10*6/uL Normal 3.60-5.00 [facility] Comment on above: Performed By: #### L IPID, BMP, CBC #### [facility] [address] [place] [address] [place] WBC (Bld) [#/Vol] 5.7 10*3/uL Normal 3.8-11.6 [facility] Comment on above: Performed By: #### L IPID, BMP, CBC #### [facility] [address] [place] [address] [place] Creatine Kinaseon 03-11-2023 CK [Catalytic activity/Vol] 64 U/L Normal [facility] Comment on above: Performed By: #### L IPID, CMP, A1C WTH eA, CBC #### [facility] [address] [place] [id number] [place] Creatine kinase [Enzymatic a ctivity/volume] in Serum or PlasmaOrdered By: Lamin Rose on 03-11-2023 CK [Catalytic activity/Vol] 64 U/L [facility] Creatinine (Bld) [Mass/Vol]O rdered By: Lamin Rose on 03-11-2023 Creatinine [Mass/Vol] 1.7 mg/dL 0.6-1.3 [facility] Comment on above: ER/ESD physician is notified/shown all ISTAT results.Critical values may be confirmed by laboratory testing ifdeemed necessary by ER attending doctor. Dipstick and Microscopicon 0 03-11-2023 Appearance (U) Clear Normal Clear [facility] Comment on above: Order Comment: Name Collection Type:: Clean-Voided Midstream Performed By: #### L IPID, CMP, A1C WTH eA, CBC #### [facility] [address] [place] [address] [place] Bacteria,Urine None Seen Normal None Seen [facility] Comment on above: Order Comment: Name Collection Type:: Clean-Voided Midstream Performed By: #### L IPID, CMP, A1C WTH eA, CBC #### [facility] [address] [place] [id number] [place] Bilirubin,Urine Negative Normal Negative [facility] Comment on above: Order Comment: Name Collection Type:: Clean-Voided Midstream Performed By: #### L IPID, CMP, A1C WTH eA, CBC #### [facility] [address] [place] [address] [place] Color (U) Yellow Normal Yellow [facility] Comment on above: Order Comment: Name Collection Type:: Clean-Voided Midstream Performed By: #### L IPID, CMP, A1C WTH eA, CBC #### [facility] [address] [place] [address] [place] Glucose Ql (U) Normal Normal Normal [facility] Comment on above: Order Comment: Name Collection Type:: Clean-Voided Midstream Performed By: #### L IPID, CMP, A1C WTH eA, CBC #### [facility] [address] [place] [address] [place] Hyaline Casts,Urine 0-8 Normal 0-8 [facility] Comment on above: Order Comment: Name Collection Type:: Clean-Voided Midstream Result Comment: PERF ORMED BY: [place] [address] PATHOLOGIST [employer]AD WORK GATHERER THERESA MULLER M.D. Performed By: #### L IPID, CMP, A1C WTH eA, CBC #### [facility] [address] [place] [address] [place] Ketones Ql (U) Negative Normal Negative [facility] Comment on above: Order Comment: Name Collection Type:: Clean-Voided Midstream Performed By: #### L IPID, CMP, A1C WTH eA, CBC #### [facility] [address] [place] [address] [place] Leukocyte esterase Test strip Ql (U) 2+ High Negative [facility] Comment on above: Order Comment: Name Collection Type:: Clean-Voided Midstream Performed By: #### L IPID, CMP, A1C WTH eA, CBC #### [facility] [address] [place] [address] [place] Nitrite,Urine Negative Normal Negative [facility] Comment on above: Order Comment: Name Collection Type:: Clean-Voided Midstream Performed By: #### L IPID, CMP, A1C WTH eA, CBC #### [facility] [address] [place] [address] [place] Occult Blood,Urine Negative Normal Negative [facility] Comment on above: Order Comment: Name Collection Type:: Clean-Voided Midstream Result Comment: PERF ORMED BY: [place] [address] PATHOLOGIST [employer]AD WORK GATHERER THERESA MULLER M.D. Performed By: #### L IPID, CMP, A1C WTH eA, CBC #### [address] pH (U) 5.0 [pH] Normal 5.0-9.0 [facility] Comment on above: Order Comment: Name Collection Type:: Clean-Voided Midstream Performed By: #### L IPID, CMP, A1C WTH eA, CBC #### [address] Protein,Urine Negative Normal Negative [facility] Comment on above: Order Comment: Name Collection Type:: Clean-Voided Midstream Performed By: #### L IPID, CMP, A1C WTH eA, CBC #### [address] RBC LM.HPF (Urine sed) [#/Area] 0 /[HPF] Normal 0-4 [facility] Comment on above: Order Comment: Name Collection Type:: Clean-Voided Midstream Performed By: #### L IPID, CMP, A1C WTH eA, CBC #### [address] Specificy [place],Urine 1.020 Normal 1.001-1.03 0 [facility] Comment on above: Order Comment: Name Collection Type:: Clean-Voided Midstream Performed By: #### L IPID, CMP, A1C WTH eA, CBC #### [address] Squamous Epithelial Cell,Urine 5-9 High 0-2 [facility] Comment on above: Order Comment: Name Collection Type:: Clean-Voided Midstream Performed By: #### L IPID, CMP, A1C WTH eA, CBC #### [address] Urobilinogen,Urine Normal Normal Normal [facility] Comment on above: Order Comment: Name Collection Type:: Clean-Voided Midstream Performed By: #### L IPID, CMP, A1C WTH eA, CBC #### [facility] [address] [place] [id number] [place] WBC,Urine 10-19 High 0-4 [facility] Comment on above: Order Comment: Name Collection Type:: Clean-Voided Midstream Performed By: #### L IPID, CMP, A1C WT eA, CBC #### [facility] [address] [place] [id number] [facility] ECG 12 lead ECGon 03-11-2023 ECG 12 lead ECG [facility] Main [place] [address] [place] [address] Electrocardiograph Report Signed Patient: Anh Tejeda MR#: [id number] [id number] : 1950 Acct:[id number] Age/Sex: 72 / F ADM Date: 03/11/23 Loc: Room: [address] [place] [address] Type: ADM IN Attending Dr: Kimberly Arteaga [...] MUS Signed By Lamin Rose MD 02/15 [facility] Glucose Poct Glucometerson 0 03-11-2023 Commemt1 Glu2: Cleaned Meter Normal [facility] Comment on above: Result Comment: PERF ORMED BY: [place] [address] PATHOLOGIST BAD WORK GATHERER THERESA UMLLER M.D. Performed By: #### L IPID, CMP, A1C WT eA, CBC #### [facility] [address] Glucose [Mass/Vol] 193 mg/dL Normal [facility] Comment on above: Result Comment: [facility] Glucose Reference Range is dependent on time and content of last meal. Glucose of more than 200 mg/dL in a nonstressed, ambulatory subject supports the diagnosis of Diabetes Mellitus. Performed By: #### L IPID, CMP, A1C WT eA, CBC #### [facility] [address] Ketones Auto test strip (U) [Mass/Vol]Ordered By: Lamin Rose on 03-11-2023 Ketones (U) [Mass/Vol] Negative Negative [facility] Laboratory - CoagulationOrde red By: Lamin Rose on 03-11-2023 PT Coag (PPP) [Time] 13.5 s 9.0-12.9 [facility] Laboratory - UrinalysisOrder ed By: Lamin Rose on 03-11-2023 Hyaline casts LM Ql (Urine sed) 0-8 [LPF] 0-8 [facility] Monocyte distribution width [Entitic volume] in Blood by AutomatedOrdered By: Lamin Rose on 03-11-2023 Monocyte distribution width Auto (Bld) [Entitic vol] 17.19 % 0.00-20.00 [facility] Nitrite Test strip Ql (U)Ord ered By: Lamin Rose on 03-11-2023 Nitrite Ql (U) Negative Negative [facility] No Panel InformationOrdered By: Lamin Rose on 03-11-2023 Bedside Glucose Comment Glu2: cleaned meter [facility] Partial Thromboplastin Timeo n 03-11-2023 aPTT Coag (Bld) [Time] 33.9 s Normal 25.1-36.5 [facility] Comment on above: Result Comment: PERF ORMED BY: [place] [address] PATHOLOGIST BAD WORK GATHERER THERESA MULLER M.D. Performed By: #### L IPID, BMP, CBC #### [facility] [address] [place] [id number] [facility] Platelet poor plasma interna tional normalized ratio (INR) by coagulation assay (relatOrdered By: Lamin Rose on 03-11-2023 INR Coag (PPP) [Relative time] 1.2 {INR} [facility] Comment on above: INR Therapeutic Rang [...] 03-11-2023 Protein (U) [Mass/Vol] Negative Negative [facility] Prothrombin Time INRon 03-11 INR Coag (PPP) [Relative time] 1.2 {INR} Normal [facility] Comment on above: Result Comment: INR [...] 3 - 4.5 Performed By: #### L IPIDJUSTIN, CBC #### [facility] [address] [place] [address] [place] PT Coag (PPP) [Time] 13.5 s High 9.0-12.9 [facility] Comment on above: Performed By: #### L IPJUSTIN GOMEZ, CBC #### [facility] [address] [place] [address] [place] Specific gravity Auto test s trip (U) [Rel density]Ordered By: Lamin Rose on 03-11-2023 Specific gravity (U) [Rel density] 1.020 1.001-1.03 0 [facility] Squamous epithelial cells de tection in urine sediment by light microscopyOrdered By: Lamin Rose on 03-11-2023 Epithelial cells.squamous LM Ql (Urine sed) 5-9 [HPF] 0-2 [facility] Troponin I High Sensitivityo n 03-11-2023 Troponin I High Sensitivity 3.7 pg/mL Normal 0.0-15.0 [facility] Comment on above: Result Comment: PERF ORMED BY: [facility] [address] [facility] [place] [address] PATHOLOGIST [employer]AD WORK GATHERER THERESA MULLER M.D. Performed By: #### L IPID, CMP, A1C WTH eA, CBC #### [facility] [address] Troponin I.cardiac [Mass/vol ume] in Serum or Plasma by Detection limit <= 0.01 ng/Ordered By: Lamin Rose on 03-11-2023 Troponin I.cardiac DL <= 0.01 ng/mL [Mass/Vol] 3.7 pg/mL 0.0-15.0 [facility] Urine Cultureon 03-11-2023 Bacteria identified Cx Nom (U) ORGANISM: Escherichia coli (O:ESCCOL) [place] Count >100,000 Aerobic JUNAID Charge (NMIC56) SUSCEPTIBILITY [...] RESISTANT TO ALL B-LACTAM DRUGS. PERFORMED BY: [place] [address] PATHOLOGIST BAD WORK GATHERER THERESA MULLER M.D. [facility] Comment on above: Performed By: #### L IPID, CMP, A1C WTH eA, CBC #### [address] Urine bacteria detection by automated methodOrdered By: Lamin Rose on 03-11-2023 Bacteria Auto Ql (U) None seen None Seen [facility] Urine clarity by refractomet ry automatedOrdered By: Lamin Rose on 03-11-2023 Clarity Refractometry automated (U) Clear Clear [facility] Urine culture routineOrdered By: Lamin Rose on 03-11-2023 Bacteria identified Cx Nom (U) Escherichia coli [facility] Urine glucose measurement by automated test strip (mass/volume)Ordered By: Lamin Rose on 03-11-2023 Glucose Auto test strip (U) [Mass/Vol] Normal mg/dL Normal [facility] Urine hemoglobin detection b y automated test stripOrdered By: Lamin Rose on 03-11-2023 Hemoglobin Auto test strip Ql (U) Negative Negative [facility] Urine leukocyte esterase det ection by automated test stripOrdered By: Lamin Rose on 03-11-2023 Leukocyte esterase Auto test strip Ql (U) 2+ Negative [facility] Urobilinogen Auto test strip (U) [Mass/Vol]Ordered By: Lamin Rose on 03-11-2023 Urobilinogen (U) [Mass/Vol] Normal mg/dL Normal [facility] XR chest 1V portableon 03-11 XR chest 1V portable [facility] [address] [place] [address] XRay Report Signed Patient: Anh Tejeda MR#: [id number] 036 : 1950 Acct:[id number] Age/Sex: 72 / F ADM Date: 03/11/23 Loc: ER Room: Type: [facility] ER Attending Dr: Copies to: Lamin [...] Riki Garnica M.D.03/11/2023 4:19 PM Dictation Location: [place] [address] Transcribed By: [facility] 03/11/231618 Dictated By: Riki Garnica II, MD 03/11/231616 Signed By: 03/11/23 161 Normal [facility] pH Auto test strip (U)Ordere d By: Lamin Rose on 03-11-2023 pH (U) 5.0 [pH] 5.0-9.0 [facility] Lab Reportson 02-27-2023 Lab Reports [id number]:127 Normal [facility] MAGNESIUMon 02-23-2023 Magnesium [Mass/Vol] 1.3 mg/dL Critically low 1.8-2.4 [facility] Comment on above: Performed By: #### M G #### [facility] [address] [address] [address] Anamika Varghese Provider Letteron 02-19-2023 Provider Letter (Inserted Image. Tia ble to display) February 19, 2023 ANH TEJEDA [address] [place] [address] ANH TEJEDA 1950 Dear Anh, We have [...] your prompt attention to this matter. Sincerely, [facility] [phone] Normal [facility] Lab Reportson 02-10-2023 Lab Reports [id number]#[id number]:127 Normal [facility] Lab Reports [id number]#[id number]:127 Normal [facility] CNPNon 02-09-2023 CNPN Telephone (HEMASA) ANH TEJEDA ([id number]) 1950 F Date Time Provider Department 02/09/23 JOVANNI CRUZ During your visit today, we recorded the following information about you: Jovanni Cruz RN 02/09/2023 12:48 PM Signed ----- Message from Daksha Bridges PA-C sent at 02/09/2023 7:43 AM EDT ----- Please call with normal iron labs Jovanni Cruz RN 02/09/2023 12:49 PM Signed Informed pt of Daksha's message. Pt verbalized understanding and denies further needs at this time. Jovanni Cruz RN Allergies As of Date: 02/09/2023 Noted [...] chronic blood los*10/03/2022 Encounter Status:Closed by JOVANNI CRUZ on 02/09/23 Normal [facility] Coding Summary.on 02-09-2023 Coding Summary. CD:[id number] Ww+PGhl YWQ+VB4LIWQzE68brYYniA7dA8D MTElOSywgQVBQTElOSyIgbmFtZT 1kaXNjZXJu IC8+LV2dKLTaYnemvTLpg7S4yDM 0W75pnz9kNNmtgPO3YNLgWpWifk iuy2cebHv7IWovKczlRyFf TNYbwT82QRD0vP69Zm81dEMeeCR bw4miqLa4PxEiPZLaBID6oXyuKU wnf4QqAZKgX81itJVhb6U0 CGPecSzyjBTvEjTpoON0iH9eGFa zwxhlp0cakeqqPrh5eu80pYIng1 M2zQM8G8DqsmP2PJQcbHLy RsjxnYZPlU1efpuns5pzaeadJoH zBRQfMHf7LXf6CCCbkGgdNrQrVT 05RBX8ZUFyttQkU5KoGQAn fWyjEyK9v9L4Lk2CU2MLCxbkY8Q NTUFSWTwvdGQ+YV78ez19Q6MbLu iuSqg8SBDlYEG1mTM2uY3u RBOuEMjit3H1fHH9X2TujyQrch8 cm0nrPUHsRLfzK23rxORel2P8LY TeiMO0ABCmcIfzLsZtxY48 Oyc+WZEgsAevt9BtChasr3dns2i uwTk3YrpxCVBjupAwhSthFTG4a4 NiBe2aVADlwOT2sNI2wA2w YqPzIqN8OCgmG181MyCksCMbSkq gY58rA4NnfBP+KSIsXrw1LPRcuF yiBE7nW7BqMQCnlkyyyEBz dHcpHB0wVOLjffviRZDvvP7pHNW aK9t6RdBkPlP1UBaxY5YgANFxjd bqAd37cM9pAbWmWbT6UNvy O1QwsoC7RUAgpZSfNSjwDAD7K48 fp7C1DXShCULxCSP5tYP5gZ5klM lnbjogbGVmdDsgdmVydGlj EHcuWGveF330CVIerLuhDtVxUAu uZyBEYXRlOiAgMDMvMjcvMjAyMz wvdGQ+EMKpJUQ5cKivOBVd pMNyNPyjFi5ziYiyuTlqRV6xVAH ohqnySXIvfP5cAFWzjPUqhQijSG 5lHKYrwhpbf224QhKvNWY9 PZRsfJAjN3JsaS5hBrPoMHFjRNG yE2NziXWjYInzO740SRxvKtE3YN KoapXfO8LmGOJugQutXrM6 x7Y5Sv1Ly1XzoxpfY0JrbTHiXcN qOukuATy5A7WqHcxrmHD+PC90YW OwWC27ACv4JLI1oZwgKXxl MQHcA1KflZ1ySmMnWPRaAMYqImh +PHRhYmxlIHdpZHRoPScxMDAlJy EwsAymRC5uIy3hPXOmDMMc mJldmEGsUyMag5vzDEKtIYgeJP9 oiRxbA6KvaOT9QRWon8e9Ju22G6 2tP3GixFW+IILwgBZ1uUZ9 wY0xYgCaHmH8EVziC819HuPrhDN gZpynx4wnz0nklEr5LvZ7PNLifi WatQtrASV8m9WrKr07L10a IHdpZHRoPSIxNSUiIHZhbGlnbj0 miW4hPg0+RGVbqDJ4vDM6sP9yTp OjDrD4KCncN118OtQxtGDt Mrosz4lnr3dstXq1TkNiJVNynjH ofYhmHYX0a1CrWc47X3OnyOerf3 GfEuz6jp25cGQxq6H3hBM7 S3AzGPWutkfwqIJgqTwqCV6xNPW pzljgWJHwuO4qBFSjB8t5OyRbJq M8CXysF2GyhxK6EFWbqVKu EYFdkQLJmT6umgmnz9bwqjbzXnX sXMPpXDl3XZe3BNAxxGxbYfUmJP F4XkZ7QFT9nHXipS5koAsm penjcT7qSyv+YYA3xGOalZZRZV7 lOjwvdGQ+THRdGLI9rJqsUCpqAZ HlsB1kCRBlQ9e7RnPmLcB0 YHoqW7VqkjH5WXKcoAHyYDIbqPN KmW0csgirp6opsdrbFxRfZADzRQ w3UKh8QAPrnJitYvOnSLW0 OeG6CLS3aNYvpQ6piGqsexuuxN4 wOyc+XfycjYfnKEH4BBn5V5WtHj d4QITvyOnvWQ4onZKlRIhc Cx5stYwjjYclDW3jCYDwoeybr71 1FuCov7hkQAXxvJOqKCvqTZZ5R0 7ia4Z4VVZmVWFlDME5pWV9 cV9jcPhtyyrrhBXuySslutNwvCo vIDhyUEjyI272QLSwfLywYnVwRS v8V8GcZbk1YQLdiXfqJQ8n zTZuYBvwCm8syTazkUqhUC4fJUS ywtmyi266HjWom3qnLMDjcSCqAX cwNSV1L22lk7Z7DQNiGEFw DPK1fRJ5mW7snEdinhxeuVFjbTa gcfWivPehOHotFFkcG152ZICjbP psRrYxoUe9I0JnWsd7RVNt cIenHO2lnOTjCAxqNy9ouHyocHi jPZ3pKRCeufhzz128GrPbq2ubVM KshCAwBFvlIFR0Y10ma6J1 CEDdTYZtXKE6lWU3iB2mpGyptye gbGVmdDsgdmVydGljYWwtYWxpZ2 46IHRvcDsnPlBhdGllbnQg FBvyIJv6I2XjFoaayZS+AJ51RHY cXL99dNOmqEKvp3hlnRw7EtYqTV NhJZX7vRbdPOekc5HhOXDl K08ayZPnw3F2EHZmsHkvkXXxNxA poIK7uN2pSUxbfabjc9sjopjmGq pyn3zvuy35yZ28N82rZGsy FJDmIWJyOATnSJYrzFndfj5dxL1 wIi8+QEKmxAU3xKX3kV4uYCXqPw K9FXwiA220ZdSwjWIdUmyi p2mfp1tywYa6PlY2QJYnsyQedMl aVXH0l1ExAz75U71gCPvwCPZgJG ZbBQBvHVXxlHutas7jtI6d Ii8+LUUvlPN3mVR6sQ1jAcOtTkJ 0LRxqR541WsQtiGYnFsifT08gX3 JvdXA+GROnJlx5NNXyzAhw BW5gyKCoUGpaLs8lWUR5TtAfBxC vYYgbM2HiTWNhspxzklhlaMA4XZ FyGGTwyU31Ui9xpKuyUPYd wVIDvJ0jwjitk1sdlnopNlRpMEY vFNr2FKo1SLHtyFuxKaCbZDF2Kh N0WLX7iIKfhK9xjQktcegr jG0uH1NoTJEgvvekOq02cB1aFrC hZaY6FVkmJjn+VOYHH5qKAfriNA QDE8d5W0PqHyd6BRMjqDcn YM7pgDGvFVirZd1xmIlzdWanPK3 sHJZmdbhhJSIkkO2yZGHzsRQdfI vjXZ5rYVRigfhqf554KdTm NJL2IOOfgELyK9RdfZ6tUsReQIF iHRMoA6LtsLKuSPucH645TMftIw R9PUVqpaQmD3GnSPVgmPbp McR5d6C3La4tHq6xBW8cOIC7BT1 0LN94hMUki7J7eEI8R7DhEWSwzc pepegkhDF6PZEbOHAhdJ10 hUNsWCgiDq2we7I9v202LNEgLTR bbY62Mp4rcOoaGYLhlVRNlS6twg mte0kigbcpJmTgCBYnMWa4 ABk3TCYslPqwHhOuCYS7SfP3ESQ 7iIIvuO3yaOwoygilyU5nLfr+Nz UvWHKjwdB2W2RjQzm9XEMy pNfyTY9dnKObJRiyKx6xaCtmdVo xQT2qFUNreevgXJAblK6tPEMvrG JgdWgpBS8iFBGjcotse236 FfNxAAO3DTNwzUFvT0JzhY9bOcN uVVTrSDHzV6WluQMoKYqqO554OW asOfF2WWMnydIlM0XyMGIh eMabWpG5l5O7Vx9PHA9elCE1N8Q iLqz6SDQhvLcmTX8lfACkJTtyHh 0gfDglfWrgMP9bNXGifrzy NMCeoI5aINUjvIOmdJvmQC3bOMA khjiug634UqRrGYA3PNJhsYIeO9 RunG8yRyUiSUXuFAKtC4Dc vJRmGNclE330BHkqUhE2RRDcppS qA7OxFCSibIpoSiF1q3Z1Rx5OxY LqNSOhGD19MD76QB57O8As PjwvdGFibGU+PHRhYmxlIHdpZHR yXDgpRGMrHxYawPbjAN3hRd8eTM DiETKckVhcrZUtQeMof1em VSByARioVT2mkBvhI9GnpLP9YOY xg6d3Cr57F01zH9JnlPC+PGNvbC Z8uCY3lP2gEjOlCfA9ZWdi Q923ZvGkgGGpVdbae0mwx9btzTu 4BkZpMNHvogTyqWnsIUI6n4MlBe 78V86iUJbkUIRoAYLkXBCj DUZkgPpmfb9veU6yJz2+PGNvbCB 8mKL3yE1uLiAyNjV7SWqpM823Jb QlgENcVdhfR99yH5HoiCD+ GWJfMyr0IVLxsDskTF2paGXtNZn fLl4tUXC8ImCqNhKrWBrkC0WwMT JbaduhzhijwPC0FYQeIEKo wU98Ph8llAdpOs5yGUCgMWP6YVJ irLCuH0TftH0cSlDbHGDeHGFzE4 EwkLVaZRohF541KIfsTxE8 PNNvccBsO4OgKGVdxAeaGrH0j0Z 1It0QuWtiuPBaTL0zNbDqDDu6W9 GkNbn0XKHwfVroQH8uwLAk JJheNr1cwAhnmOohLV5nHKHpmpg xv012JiZhg2ysFLAbhIFiBImeIV K2G12io0F7ZLYdRAGlZRL3 wOZ7aS8ttXcqvckmeBCpxFtvprV qeSvlUSgbNUoiK051ANGbbDwdKf VAWva2X0FyYfm7OHDksWra VX5ihTInWZxyAq9vwFxleZwxZC6 jLKZpiqkom672SfIgx7buEBCfyN ZiJNoqTSH0L66wh6T0VHAf BLWeWCX3pJB2kS4exWnqqdilkBZ vqVuibdZlsStcGYzbORsqG015SV HziEsnBm2GAgp3H6ItPvo4 FIYjqTndXC6jxBPhNJfaId5cyTm tkXlpUL1pVGKbmrndb896MkHuu1 meYLDjoEVtZYruCSE2T34j r6R5MDNqAZMjVRD5oJH0vC0csBp nbjogbGVmdDsgdmVydGljYWwtYW qqS212PKUwwVfpExMzwZRs OjwvdGQ+TT30ra18L0WfKnosIrv 5IZIlETF4bHM4xH0dUREkOXaup6 T2gMD3F6SlnnDmpv1vc1cy YXBzZTog (more content not included)... Normal [facility] Consultation Noteon 02-10-20 Consultation Note [id number]:127 Normal [facility] CBC W Auto Differential pane l (Bld)on 02-06-2023 Basophils (Bld) [#/Vol] 10*3/uL Normal <0.11 [facility] Comment on above: Order Comment: Speci men Type: BLOOD SPECIMEN Ordering Facility: [facility] Address: [address] [place] [address] Performed By: #### 5 0190-8, 2275- #### [facility] CLIA [id number] [address] [place] [address] [place] Basophils/100 WBC (Bld) 0.3 % Normal [facility] Comment on above: Order Comment: Speci men Type: BLOOD SPECIMEN Ordering Facility: [facility] Address: [address] [place] [address] Performed By: #### 5 0190-8, 2275- #### [facility] CLIA [id number] [address] [place] [address] [place] Differential cell count method Nom (Bld) Auto Normal [facility] Comment on above: Order Comment: Speci men Type: BLOOD SPECIMEN Ordering Facility: [facility] Address: [address] [address] Performed By: #### 5 0190-8, 2275- #### [facility] CLIA [id number] [address] [place] [address] [place] Eosinophils (Bld) [#/Vol] 0.33 10*3/uL Normal <0.46 [facility] Comment on above: Order Comment: Speci men Type: BLOOD SPECIMEN Ordering Facility: [facility] Address: [address] [place] [address] Performed By: #### 5 0190-8, 2275- #### [facility] CLIA [id number] [address] [place] [address] [place] Eosinophils/100 WBC (Bld) 5.1 % Normal [facility] Comment on above: Order Comment: Speci men Type: BLOOD SPECIMEN Ordering Facility: [facility] Address: [address] [place], [place] [id number] Performed By: #### 5 0190-8, 2276-02 #### [facility] CLIA [id number] [address] [place] [address] [place] Erythrocyte distribution width (RBC) [Ratio] 16.0 % High 11.5-15.0 [facility] Comment on above: Order Comment: Speci men Type: BLOOD SPECIMEN Ordering Facility: [facility] Address: [address] [place], [place] [id number] Performed By: #### 5 0190-8, 2276-02 #### [facility] CLIA [id number] [address] [place] [address] [place] Hematocrit (Bld) [Volume fraction] 33.3 % Low 36.0-46.0 [facility] Comment on above: Order Comment: Speci men Type: BLOOD SPECIMEN Ordering Facility: [facility] Address: [address] [place], [place] [id number] Performed By: #### 5 0190-8, 2276-02 #### [facility] CLIA [id number] [address] [place] [address] [place] Hemoglobin (Bld) [Mass/Vol] 10.8 g/dL Low 11.5-15.5 [facility] Comment on above: Order Comment: Speci men Type: BLOOD SPECIMEN Ordering Facility: [facility] Address: [address] [place], [place] [id number] Performed By: #### 5 0190-8, 2275- #### [facility] CLIA [id number] [address] [place] [address] [place] Immature granulocytes (Bld) [#/Vol] 0.03 10*3/uL Normal <0.10 [facility] Comment on above: Order Comment: Speci men Type: BLOOD SPECIMEN Ordering Facility: [facility] Address: [address] [place] [address] Performed By: #### 5 0190-8, 2275- #### [facility] CLIA [id number] [address] [place] [address] [place] Immature granulocytes/100 WBC (Bld) 0.5 % Normal [facility] Comment on above: Order Comment: Speci men Type: BLOOD SPECIMEN Ordering Facility: [facility] Address: [address] [place], [place] [id number] Performed By: #### 5 0190-8, 2276-02 #### [facility] CLIA [id number] [address] [place] [address] [place] Lymphocytes (Bld) [#/Vol] 1.43 10*3/uL Normal 1.00-4.00 [facility] Comment on above: Order Comment: Speci men Type: BLOOD SPECIMEN Ordering Facility: [facility] Address: [address] [place], [place] [address] Performed By: #### 5 0190-8, 2276-02 #### [facility] CLIA [id number] [address] [place] [address] [place] Lymphocytes/100 WBC (Bld) 22.2 % Normal [facility] Comment on above: Order Comment: Speci men Type: BLOOD SPECIMEN Ordering Facility: [facility] Address: [address] [place] [address] Performed By: #### 5 0190-8, 2275- #### [facility] CLIA [id number] [address] [place] [address] [place] MCH (RBC) [Entitic mass] 28.6 pg Normal 26.0-34.0 [facility] Comment on above: Order Comment: Speci men Type: BLOOD SPECIMEN Ordering Facility: [facility] Address: [address] [place], [place] [address] Performed By: #### 5 0190-8, 2276-02 #### [facility] CLIA [id number] [address] [place] [address] [place] MCHC (RBC) [Mass/Vol] 32.4 g/dL Normal 30.5-36.0 [facility] Comment on above: Order Comment: Speci men Type: BLOOD SPECIMEN Ordering Facility: [facility] Address: [address] [place], [place] [address] Performed By: #### 5 0190-8, 2276-02 #### [facility] CLIA [id number] [address] [place] [address] [place] MCV (RBC) [Entitic vol] 88.3 fL Normal 80.0-100.0 [facility] Comment on above: Order Comment: Speci men Type: BLOOD SPECIMEN Ordering Facility: [facility] Address: [address] [place], [place] [address] Performed By: #### 5 0190-8, 2276-02 #### [facility] CLIA [id number] [address] [place] [address] [place] Monocytes (Bld) [#/Vol] 0.37 10*3/uL Normal <0.87 [facility] Comment on above: Order Comment: Speci men Type: BLOOD SPECIMEN Ordering Facility: [facility] Address: [address] [place], [place] [address] Performed By: #### 5 0190-8, 2276-02 #### [facility] CLIA [id number] [address] [place] [address] [place] Monocytes/100 WBC (Bld) 5.7 % Normal [facility] Comment on above: Order Comment: Speci men Type: BLOOD SPECIMEN Ordering Facility: [facility] Address: [address] [address] Performed By: #### 5 0190-8, 2275- #### [facility] CLIA [id number] [address] [place] [address] [place] Neutrophils (Bld) [#/Vol] 4.27 10*3/uL Normal 1.45-7.50 [facility] Comment on above: Order Comment: Speci men Type: BLOOD SPECIMEN Ordering Facility: [facility] Address: [address] [address] Performed By: #### 5 0190-8, 2276-02 #### [facility] CLIA [id number] [address] [place] [address] [place] Neutrophils/100 WBC (Bld) 66.2 % Normal [facility] Comment on above: Order Comment: Speci men Type: BLOOD SPECIMEN Ordering Facility: [facility] Address: [address] [address] Performed By: #### 5 0190-8, 2276-02 #### [facility] CLIA [id number] [address] [place] [address] [place] Nucleated RBC (Bld) [#/Vol] 10*3/uL Normal <0.01 [facility] Comment on above: Order Comment: Speci men Type: BLOOD SPECIMEN Ordering Facility: [facility] Address: [address] Performed By: #### 5 0190-8, 2275- #### [facility] CLIA [id number] [address] [place] [address] [place] Nucleated RBC/100 WBC (Bld) [Ratio] 0.0 /100 WBC Normal [facility] Comment on above: Order Comment: Speci men Type: BLOOD SPECIMEN Ordering Facility: [facility] Address: [address] Performed By: #### 5 0190-8, 2275-4 #### [facility] CLIA [id number] [address] [place] [address] [place] Platelet mean volume (Bld) [Entitic vol] 9.7 fL Normal 9.0-12.7 [facility] Comment on above: Order Comment: Speci men Type: BLOOD SPECIMEN Ordering Facility: [facility] Address: [address] [place] [address] Performed By: #### 5 0190-8, 2275- #### [facility] CLIA [id number] [address] [place] [address] [place] Platelets (Bld) [#/Vol] 151 10*3/uL Normal 150-400 [facility] Comment on above: Order Comment: Speci men Type: BLOOD SPECIMEN Ordering Facility: [facility] Address: [address] [place], [place] [address] Performed By: #### 5 0190-8, 2276-02 #### [facility] CLIA [id number] [address] [place] [address] [place] RBC (Bld) [#/Vol] 3.77 10*6/uL Low 3.90-5.20 [facility] Comment on above: Order Comment: Speci men Type: BLOOD SPECIMEN Ordering Facility: [facility] Address: [address] [place] [address] Performed By: #### 5 0190-8, 2276-02 #### [facility] CLIA [id number] [address] [place] [address] [place] WBC (Bld) [#/Vol] 6.45 10*3/uL Normal 3.70-11.00 [facility] Comment on above: Order Comment: Speci men Type: BLOOD SPECIMEN Ordering Facility: [facility] Address: [address] [place], [place] [address] Performed By: #### 5 0190-8, 2276-4 #### [facility] CLIA [id number] [address] [place], [place] [address] [place] [address] [place] CNOVSPon 02-06-2023 CNOVSP Visit (SP) Office (H EMASA) ANH TEJEDA ([id number]) 1950 F Date Time Provider Department 02/06/23 2:30 PM DAKSHA BRIDGES During your visit today, we recorded the following information about you: Temperature Pulse Respiration Blood pressure 97.2 degrees 84/minute 16/minute 137/61 Weight Height 97.8 kg 1.58 m Daksha Bridges PA-C 02/06/2023 2:44 PM Signed PATIENT NAME: Anh Tejeda CLINIC NO.: [id number] ATTENDING PHYSICIAN: Delores Walker MD DATE OF [...] Gap ( (more content not included)... Normal [facility] Comprehensive metabolic 2000 panelon 02-06-2023 Albumin [Mass/Vol] 4.4 g/dL Normal 3.9-4.9 [facility] Comment on above: Order Comment: Speci sukhdeep Type: BLOOD SPECIMEN Ordering Facility: [facility] Address: [address] [place], [place] [address] Performed By: #### 5 0190-8, 2275- #### [facility] CLIA [id number] [address] [place] [address] [place] ALP [Catalytic activity/Vol] 135 U/L High 34-123 [facility] Comment on above: Order Comment: Speci men Type: BLOOD SPECIMEN Ordering Facility: [facility] Address: [address] [place] [address] Performed By: #### 5 0190-8, 2276-02 #### [facility] CLIA [id number] [address] [place] [address] [place] ALT [Catalytic activity/Vol] 30 U/L Normal 7-38 [facility] Comment on above: Order Comment: Speci men Type: BLOOD SPECIMEN Ordering Facility: [facility] Address: [address] [place] [address] Performed By: #### 5 0190-8, 2275- #### [facility] CLIA [id number] [address] [place] [address] [place] Anion gap [Moles/Vol] 17 mmol/L Normal 9-18 [facility] Comment on above: Order Comment: Speci men Type: BLOOD SPECIMEN Ordering Facility: [facility] Address: [address] [place] [address] Performed By: #### 5 0190-8, 2276-02 #### [facility] CLIA [id number] [address] [place] [address] [place] AST [Catalytic activity/Vol] 42 U/L High 13-35 [facility] Comment on above: Order Comment: Speci men Type: BLOOD SPECIMEN Ordering Facility: [facility] Address: [address] [place] [address] Performed By: #### 5 0190-8, 2276-02 #### [facility] CLIA [id number] [address] [place] [address] [place] Bilirubin [Mass/Vol] 0.3 mg/dL Normal 0.2-1.3 [facility] Comment on above: Order Comment: Speci men Type: BLOOD SPECIMEN Ordering Facility: [facility] Address: [address] [place] [address] Performed By: #### 5 0190-8, 2275- #### [facility] CLIA [id number] [address] [place] [address] [place] Calcium [Mass/Vol] 9.1 mg/dL Normal 8.5-10.2 [facility] Comment on above: Order Comment: Speci men Type: BLOOD SPECIMEN Ordering Facility: [facility] Address: [address] [place], [place] [address] Performed By: #### 5 0190-8, 2275-4 #### [facility] CLIA [id number] [address] [place] [address] [place] Chloride [Moles/Vol] 103 mmol/L Normal 97-105 [facility] Comment on above: Order Comment: Speci men Type: BLOOD SPECIMEN Ordering Facility: [facility] Address: [address] [place], [place] [address] Performed By: #### 5 0190-8, 2275-4 #### [facility] CLIA [id number] [address] [place] [address] [place] CO2 [Moles/Vol] 26 mmol/L Normal 22-30 [facility] Comment on above: Order Comment: Speci men Type: BLOOD SPECIMEN Ordering Facility: [facility] Address: [address] [place], [place] [address] Performed By: #### 5 0190-8, 2275- #### [facility] CLIA [id number] [address] [place] [address] [place] Creatinine [Mass/Vol] 1.46 mg/dL High 0.58-0.96 [facility] Comment on above: Order Comment: Speci men Type: BLOOD SPECIMEN Ordering Facility: [facility] Address: [address] [place], [place] [address] Performed By: #### 5 0190-8, 2275- #### [facility] CLIA [id number] [address] [place] [address] [place] ESTIMATED GLOMERULAR FILTRATION RATE 38 mL/min/1.73m??? Low >=60 [facility] Comment on above: Order Comment: Speci men Type: BLOOD SPECIMEN Ordering Facility: [facility] Address: [address] [place] [address] Result Comment: Maru mated Glomerular Filtration Rate [...] Performed By: #### 5 0190-8, 6-4 #### [facility] CLIA [id number] [address] [place] [address] [place] Glucose [Mass/Vol] 113 mg/dL High 74-99 [facility] Comment on above: Order Comment: Patricia tarango Type: BLOOD SPECIMEN Ordering Facility: [facility] Address: [address] [place] [address] Result Comment: The [place] [employer] (ADA) provides guidance for cutoff [...] Standards of Medical Care in Diabetes 2016, [place] [employer]. Diabetes Care. 2016.39(Suppl 1). Performed By: #### 5 0190-8, 6-4 #### [facility] CLIA [id number] [address] [place] [address] [place] Potassium [Moles/Vol] 4.4 mmol/L Normal 3.7-5.1 [facility] Comment on above: Order Comment: Patricia tarango Type: BLOOD SPECIMEN Ordering Facility: [facility] Address: [address] [id number] Performed By: #### 5 0190-8, 6-4 #### [facility] CLIA [id number] [address] [place] [address] [place] Protein [Mass/Vol] 7.0 g/dL Normal 6.3-8.0 [facility] Comment on above: Order Comment: Speci men Type: BLOOD SPECIMEN Ordering Facility: [facility] Address: [address] Performed By: #### 5 0190-8, 2275-4 #### [facility] CLIA [id number] [address] [place] [address] [place] Sodium [Moles/Vol] 146 mmol/L High 136-144 [facility] Comment on above: Order Comment: Speci men Type: BLOOD SPECIMEN Ordering Facility: [facility] Address: [address] Performed By: #### 5 0190-8, 2275-4 #### [facility] CLIA [id number] [address] [place] [address] [place] Urea nitrogen [Mass/Vol] 33 mg/dL High 7-21 [facility] Comment on above: Order Comment: Speci men Type: BLOOD SPECIMEN Ordering Facility: [facility] Address: [address] [place] [address] Performed By: #### 5 0190-8, 4 #### [facility] CLIA [id number] [address] [place] [address] [place] Ferritin SerPl-mCncon 2022 Ferritin [Mass/Vol] 130.0 ng/mL Normal 14.7-205.1 [facility] Comment on above: Order Comment: Speci men Type: BLOOD SPECIMEN Ordering Facility: [facility] Address: [address] Performed By: #### 2 276-4 #### [facility] CLIA [id number] [address] [place] [address] [place] Iron and Iron binding capaci ty panelon 02-06-2023 Iron [Mass/Vol] 71 ug/dL Normal 41-186 [facility] Comment on above: Order Comment: Speci men Type: BLOOD SPECIMEN Ordering Facility: [facility] Address: [address] [place] [address] Performed By: #### 5 0190-8, 2275- #### [facility] CLIA [id number] [address] [place] [address] [place] Iron binding capacity [Mass/Vol] 383 ug/dL Normal 232-386 [facility] Comment on above: Order Comment: Speci men Type: BLOOD SPECIMEN Ordering Facility: [facility] Address: [address] [place] [address] Performed By: #### 5 0190-8, 2275- #### [facility] CLIA [id number] [address] [place] [address] [place] Iron/TIBC [Molar ratio] 18.5 % Normal 15.0-57.0 [facility] Comment on above: Order Comment: Speci men Type: BLOOD SPECIMEN Ordering Facility: [facility] Address: [address] [place] [address] Performed By: #### 5 0190-8, 2275- #### [facility] CLIA [id number] [address] [place] [address] [place] Auto Diffon 02-03-2023 Basophils/100 WBC (Bld) 0.4 % Normal 0.0-2.0 [facility] Comment on above: Order Comment: Order Added by Discern Expert. Performed By: #### 2 123413, 0061170, 46922461, 6827981, 3208876, 3137896, 6378443 ####[address] [place] [address] Basophils/Leukocytes Auto (Bld) [Pure # fraction] 0.0 E9/L Normal 0.0-0.2 [facility] Comment on above: Order Comment: Order Added by Discern Expert. Performed By: #### 2 887760, 6196268, 11944681, 9476010, 9936628, 3602024, 2208175 ####[facility] [address] [place] [address] Eosinophils/100 WBC (Bld) 7.5 % Normal 0.0-8.0 [facility] Comment on above: Order Comment: Order Added by Discern Expert. Performed By: #### 2 474669, 5914198, 24264541, 3226055, 1831335, 9474895, 4693912 ####[address] [place] [address] Eosinophils/Leukocytes Auto (Bld) [Pure # fraction] 0.4 E9/L Normal 0.0-0.5 [facility] Comment on above: Order Comment: Order Added by Discern Expert. Performed By: #### 2 934241, 4666309, 26233929, 8003084, 9520352, 0487411, 4376949 ####[address] [address] Lymphocytes/100 WBC (Bld) 21.6 % Normal 14.0-50.0 [facility] Comment on above: Order Comment: Order Added by Kylee Expert. Performed By: #### 2 892004, 7408466, 65092750, 1556390, 4398877, 8158538, 7543236 ####[facility] [address] [place] [address] Lymphocytes/Leukocytes Auto (Bld) [Pure # fraction] 1.2 E9/L Normal 1.0-4.0 [facility] Comment on above: Order Comment: Order Added by Kylee Expert. Performed By: #### 2 132836, 5085918, 90734151, 1667135, 3551285, 2551994, 4809538 ####[address] [address] Monocytes/100 WBC (Bld) 5.5 % Normal 4.0-14.0 [facility] Comment on above: Order Comment: Order Added by Discern Expert. Performed By: #### 2 389952, 1455346, 19272646, 9450647, 6198915, 1513809, 2191075 ####[facility] [address] [place] [address] Monocytes/Leukocytes Auto (Bld) [Pure # fraction] 0.3 E9/L Normal 0.2-1.0 [facility] Comment on above: Order Comment: Order Added by Kylee Expert. Performed By: #### 2 354080, 0830657, 72783691, 2013943, 1540658, 0159742, 4668444 ####[facility] [address] [place] [address] Neutrophils/100 WBC (Bld) 65.0 % Normal 36.0-75.0 [facility] Comment on above: Order Comment: Order Added by Discern Expert. Performed By: #### 2 646412, 4851882, 98430746, 4579610, 8637183, 3077091, 1507612 ####[facility] [address] [place] [address] Neutrophils/Leukocytes Auto (Bld) [Pure # fraction] 3.6 E9/L Normal 2.0-7.5 [facility] Comment on above: Order Comment: Order Added by Kylee Expert. Performed By: #### 2 909600, 8421233, 63005041, 2209488, 4180620, 8734993, 2290344 ####[facility] [address] [place] [address] BMPon 02-03-2023 Anion gap [Moles/Vol] 17 mmol/L High 6-16 [facility] Comment on above: Performed By: #### 2 687612, 1161224, 09715384, 1818679, 8816120, 8058288, 6820356 ####[facility] [address] [place] [address] Urea nitrogen/Creatinine [Mass ratio] 24 No Units High 10-20 [facility] Comment on above: Performed By: #### 2 892665, 9950450, 41429797, 7930556, 1040436, 5939809, 2749642 ####[facility] [address] [place] [address] Calcium [Mass/Vol] 8.2 mg/dL Low 8.9-11.1 [facility] Comment on above: Performed By: #### 2 979179, 3018365, 18668356, 4718010, 3892617, 2940806, 0300432 ####[facility] [address] [place] [address] Chloride [Moles/Vol] 102 mmol/L Normal 101-111 [facility] Comment on above: Performed By: #### 2 450933, 7080814, 37423408, 3488572, 0759013, 4353294, 9611338 ####[facility] [address] [place] [address] CO2 [Moles/Vol] 26 mmol/L Normal 21-31 [facility] Comment on above: Performed By: #### 2 683694, 0377475, 70056504, 7064785, 5051837, 1997437, 6997000 ####[facility] [address] [place] [address] Creatinine [Mass/Vol] 1.3 mg/dL Normal 0.5-1.3 [facility] Comment on above: Performed By: #### 2 613004, 1467782, 57955685, 7013398, 9898155, 4437814, 1387232 ####[facility] [address] [place] [address] Glucose [Mass/Vol] 188 mg/dL Normal 55-199 [facility] Comment on above: Result Comment: If t his glucose result represents a fasting glucose, interpretation should refer to the following reference range: 55-99 mg/dL Performed By: #### 2 808464, 8559415, 79897546, 3653176, 6404613, 6896885, 7838547 ####[facility] [address] [place] [address] Potassium [Moles/Vol] 4.4 mmol/L Normal 3.5-5.3 [facility] Comment on above: Performed By: #### 2 153455, 4875893, 45317040, 7762791, 2992377, 2475100, 1846079 ####[facility] [address] [place] [address] Sodium [Moles/Vol] 141 mmol/L Normal 135-145 [facility] Comment on above: Performed By: #### 2 195384, 1231647, 66525651, 6285383, 8812458, 6097897, 5855781 ####[facility] [address] [place] [address] Urea nitrogen [Mass/Vol] 31 mg/dL High 5-21 [facility] Comment on above: Performed By: #### 2 494340, 2912221, 60523523, 8679785, 1720390, 6012738, 6582700 ####[facility] [address] [place] [address] CBC w/ Auto Diffon 3 Erythrocyte distribution width (RBC) [Ratio] 16.6 % High 10.9-14.2 [facility] Comment on above: Performed By: #### 2 206673, 9194601, 44428259, 6397951, 4942951, 6732688, 1671563 ####[facility] [address] [place] [address] Hematocrit (Bld) [Volume fraction] 34.4 % Normal 34.0-46.0 [facility] Comment on above: Performed By: #### 2 802694, 3802073, 64588279, 0118066, 8728775, 4394012, 5342885 ####[facility] [address] [place] [address] Hemoglobin (Bld) [Mass/Vol] 11.3 g/dL Low 12.0-16.0 [facility] Comment on above: Performed By: #### 2 909048, 0457976, 77037596, 6642387, 4677918, 7562205, 8456018 ####[facility] [address] [place] [address] MCH (RBC) [Entitic mass] 28.5 pg Normal 27.0-34.0 [facility] Comment on above: Performed By: #### 2 903619, 0171501, 97186850, 0732926, 6796984, 1021599, 8741508 ####[facility] [address] [place] [address] MCHC (RBC) [Mass/Vol] 33.0 g/dL Normal 31.4-36.0 [facility] Comment on above: Performed By: #### 2 348774, 9916405, 58813344, 2237592, 1216823, 0004536, 2608645 ####[address] [address] MCV (RBC) [Entitic vol] 86.4 fL Normal 80.0-100.0 [facility] Comment on above: Performed By: #### 2 109086, 5599047, 58268879, 3863071, 7756451, 7654308, 3737402 ####[address] [address] Platelet mean volume (Bld) [Entitic vol] 7.3 fL Normal 6.4-10.8 [facility] Comment on above: Performed By: #### 2 976415, 2425972, 27425811, 4055308, 5459892, 9648347, 5523424 ####[address] [address] Platelets (Bld) [#/Vol] 153.0 E9/L Normal 150.0-500. 0 [facility] Comment on above: Performed By: #### 2 664126, 7064833, 64762907, 1095002, 5389380, 6485556, 2753191 ####[facility] [address] [place] [address] RBC (Bld) [#/Vol] 4.0 E12/L Low 4.3-5.9 [facility] Comment on above: Performed By: #### 2 316614, 4846447, 92075371, 8844212, 1634558, 9747794, 7700322 ####[facility] [address] WBC corrected for nucl RBC Auto (Bld) [#/Vol] 5.5 E9/L Normal 4.0-11.0 [facility] Comment on above: Performed By: #### 2 107976, 6935746, 35941402, 2773347, 1954977, 6813126, 4445492 ####[address] [place] [address] Consent for Treatmenton 01-15 Consent for Treatment [id number]:127 Normal [facility] Hep Func Panelon 02-03-2023 Albumin/Globulin (S) [Mass conc ratio] 1.3 Normal 1.1-2.2 [facility] Comment on above: Performed By: #### 2 157747, 2764299, 52182936, 0481537, 8040692, 1606140, 4007254 ####[facility] [address] [place] [address] ALP [Catalytic activity/Vol] 101 Int._Unit/L High 21-98 [facility] Comment on above: Performed By: #### 2 555709, 7992190, 44917837, 4502416, 1114005, 1605609, 2583576 ####[facility] [address] [place] [address] ALT No additional P-5'-P [Catalytic activity/Vol] 32 Int._Unit/L Normal 6-46 [facility] Comment on above: Performed By: #### 2 085359, 7697182, 56230971, 6843308, 2267150, 8484986, 0225771 ####[facility] [address] [place] [address] AST [Catalytic activity/Vol] 38 Int._Unit/L Normal 5-43 [facility] Comment on above: Performed By: #### 2 999066, 8666339, 74879913, 0935417, 5462548, 6832336, 4064660 ####[facility] [address] [place] [address] Bilirubin [Mass/Vol] 0.4 mg/dL Normal 0.0-1.1 [facility] Comment on above: Performed By: #### 2 456263, 2537208, 72742199, 0115317, 7255037, 3730292, 1192657 ####[id number] Bilirubin.direct [Mass/Vol] 0.1 mg/dL Normal 0.1-0.4 [facility] Comment on above: Performed By: #### 2 122236, 8241059, 77504797, 7992943, 6557976, 5864139, 5290952 ####[id number] Bilirubin.indirect [Mass or moles/Vol] 0.3 mg/dL Normal 0.1-0.9 [facility] Comment on above: Performed By: #### 2 894019, 2791971, 79264331, 6413830, 5100471, 4178591, 9180700 ####[address] [place] [address] Globulin (S) [Mass/Vol] 3.1 g/dL Normal 1.4-4.0 [facility] Comment on above: Performed By: #### 2 927950, 4894021, 27042407, 7481207, 5398561, 0537492, 5878982 ####[address] [address] Albumin [Mass/Vol] 3.9 g/dL Normal 3.3-5.0 [facility] Comment on above: Performed By: #### 2 278793, 5506194, 09774103, 6497981, 8527904, 2397141, 0480832 ####[facility] [facility] [address] [place] [address] Protein [Mass/Vol] 7.0 g/dL Normal 6.0-7.8 [facility] Comment on above: Performed By: #### 2 [id number], [id number], [id number], [id number], [id number], [id number], [id number] ####[facility] [address] [place] [address] Magnesiumon 02-03-2023 Magnesium [Mass/Vol] 1.1 mg/dL Abnormal 1.3-2.4 [facility] Comment on above: Result Comment: Crit ical Result verified by repeat analysis\Critical Result S_M.[address] RUSSELL AT by MELISSA HACKETT And Read Back For Confirmation at: 02/03/2023 15:01:38 Performed By: #### 2 [id number], [id number], [id number], [id number], [id number], [id number], [id number] ####[facility] [address] [place] [address] US Abdomen, Limitedon 2022 US Abdomen, Limited [...] M.D. Transcribed by: CHRISTINE Technologist: Munir BELTRAN [facility] Vit B12on 02-03-2023 Cobalamin (Vitamin B12) [Mass/Vol] 378 pg/mL Normal 50-1500 [facility] Comment on above: Performed By: #### 2 [id number], [id number], [id number], 6765905, 5485555, [id number], [id number] ####[facility] [address] [place] [address] eGFRon 02-03-2023 GFR/1.73 sq M.predicted among blacks MDRD (S/P/Bld) [Vol rate/Area] 49 mL/min/1.73 m2 Low >=59 [facility] Comment on above: Order Comment: Order added by Discern Expert. Result Comment: eGFR is race adjusted. AA=. Performed By: #### 2 [id number], [id number], [id number], 0955249, 3738413, 2574843, [id number] ####[facility] [address] [place] [address] GFR/1.73 sq M.predicted among non-blacks MDRD (S/P/Bld) [Vol rate/Area] 40 mL/min/1.73 m2 Low >=59 [facility] Comment on above: Order Comment: Order added by Discern Expert. Result Comment: Cold Header gustavo kidney disease could be indicated at eGFR's of less than 60 mL/min/1.73m2. Kidney failure is indicated at less than 15 mL/min/1.73m2. Performed By: #### 2 [id number], [id number], [id number], [id number], 7285630, [id number], [id number] ####[facility] [address] [place] [address] A1C with Estimated Average G luon 01-16-2023 Glucose [Mass/Vol] 171 mg/dL Normal [facility] Comment on above: Order Comment: PT IS FASTING Result Comment: PERF ORMED BY: [place] [address] PATHOLOGIST BAD WORK GATHERER THERESA MULLER M.D. Performed By: #### L IPID, CMP, A1C WTH eA, CBC #### [facility] [address] HbA1c (Bld) [Mass fraction] 7.6 % High 4.3-5.6 [facility] Comment on above: Order Comment: PT IS FASTING Result Comment: Incr eased risk for diabetes: 5.7 - 6.4 diabetes: >6.4 glycemic control for adults with diabetes: <7.0 Performed By: #### L IPID, CMP, A1C WTH eA, CBC #### [facility] [address] Albumin [Mass/volume] in Ser um or PlasmaOrdered By: Vinay Bunting on 01-16-2023 Albumin [Mass/Vol] 3.6 g/dL 3.2-5.5 [facility] Alkaline phosphatase [Enzyma tic activity/volume] in Serum or PlasmaOrdered By: Vinay Bunting on 01-16-2023 ALP [Catalytic activity/Vol] 100 U/L 32-92 [facility] Aspartate aminotransferase [ Enzymatic activity/volume] in Serum or PlasmaOrdered By: Vinay Bunting on 01-16-2023 AST [Catalytic activity/Vol] 31 U/L 10-42 [facility] Basophils Auto (Bld) [#/Vol] Ordered By: Vinay Bunting on 01-16-2023 Basophils (Bld) [#/Vol] 0.0 10*3/uL 0.0-0.2 [facility] Basophils/100 WBC Auto (Bld) Ordered By: Vinay Bunting on 01-16-2023 Basophils/100 WBC (Bld) 0.2 % . [facility] Bilirubin.total [Mass/volume ] in Serum or PlasmaOrdered By: Vinay Bunting on 01-16-2023 Bilirubin [Mass/Vol] 0.5 mg/dL 0.3-1.2 [facility] Calcium [Mass/volume] in Ser um or PlasmaOrdered By: Vinay Bunhomer on 01-16-2023 Calcium [Mass/Vol] 8.2 mg/dL 8.2-10.2 [facility] Carbon dioxide, total [Moles /volume] in Serum or PlasmaOrdered By: Vinay Bunhomer on 01-16-2023 CO2 [Moles/Vol] 28.0 mmol/L 22.0-30.0 [facility] Chloride [Moles/volume] in S hilda or PlasmaOrdered By: Vinay Bunting on 01-16-2023 Chloride [Moles/Vol] 101 mmol/L 95-114 [facility] Cholesterol [Mass/volume] in Serum or PlasmaOrdered By: Vinay Bunhomer on 01-16-2023 Cholesterol [Mass/Vol] 130 mg/dL 140-200 [facility] Comment on above: Chol less than 200 m g/dl low riskChol 201-239 mg/dl borderline riskChol 240 mg/dl and greater high risk Cholesterol in LDL Calc [Mas s/Vol]Ordered By: Vinay Matta on 01-16-2023 Cholesterol in LDL [Mass/Vol] 74 mg/dL 0-100 [facility] Comment on above: LDL ATP III CLASSIFI CATIONLDL less than 100 mg/dL OptimalLDL 100-129 mg/dL Near or above optimalLDL 130-159 mg/dL Borderline highLDL 160-189 mg/dL HighLDL greater than 189 mg/dL Very high Cholesterol in VLDL Calc [Ma ss/Vol]Ordered By: Vinay Matta on 01-16-2023 Cholesterol in VLDL [Mass/Vol] 21 mg/dL [facility] Coding Summary.on 01-16-2023 Coding Summary. [id number] Gh0bWw+ PGhlYWQ+YO5NTLDwJ03gwCOngD7 JT7sUON2FGXGYYFDFNV2DXY2lqV W5HZdfB0DuibNe KnlmcNJjJE74CJe3REW9fApkCAh ybR9foACuK3m7KkGfMO16qI56NC tiEWWyVnP6QoJispehfZZi T8rsYzJolHYdAto+PHRhYmxlIHd bYKPyEQmtIXPaIzQrtMivRR5jLe 9yZGVyLWNvbGxhcHNlOiBj x6zcWWCtNJzzTQ3icVxbX8LueWM 7QFHnp7c3Yk99iQG+AYUxGFP8fX zbUIkzm936FuEbj4buGEC4 jGPtKIiwTSQ5I65zj0Z2XJYlLCW mVNF3lRX1iW9myJfopriuT2WjmU ZjXkP0RRB4wJGuzO4mtNdl nigduK4qHac+I38OHU1NMKAOKB6 BFft7M2HsCqzraQX+EK40QRLdPL 57pXYheYPgg4awbOv0AuEl QCPtIVG3lCueDYspi8DhPVLlJ37 blCUpv6Y5VTFezBmtpTHmTnDypP B3gP1bJTjoyjtis0tzokmd Ehyon3hzsv90cH23F81sTXvpSUQ sUIX7JXTlWHVceCjclw0nyC5yBh 8+FCacq5pmz2qqkAe9UbSw XXBooyJnqXlvDXG8c4BkNu18G3P lcCxik5BdDyc9lt44yIAnk5K6iD X8EGfvSXHgjG9tKOuiUnK7 KYXfQeMzbG22fVAyIOryUd8tuFn fjJatGA9tRALkqewuQOVhnR9yKN VdfCIaoYecUV8fGQFyyhwn j989RoTcYQX7ASUazBRoK5RbdQ0 xNbLmORJhPGRgT8RluCOzRMnxC4 66CProFmV3HKRbmvWxW0Rf QWTeqLxrPwY8x9V4Rz0Ce7Qzyzt tOFZ9WUsgFFZeBfFoZgPeUeB7Y8 NzEqq3IJDugQeiVQ5gY7Jy AOMnaqlsvhquwSM3OQLoMNZmbZ7 6sAZsDMxcBk7pq1E3r225EZGuOP QozV05Dp5adFfnYRJefKVA qE2bsitaf2qwzqjcFnKxCDExJCm 9XKy7QXUjpKwpYsIeHHB4GxA4ZB M9oIUkrV2hxLhvymgfgR7u Oyc+R09tuX6zROW4QIG1qjfaVVN ycnRxPQ52JL65H0SoFcqjuUKtnA U+NPOvqgWipGbrYI8yVeSl q5ivj4VoNVybI5ZkUMHlZDmbWpm 6GFSnTKK9qTG7yY5fBRNwFSjna0 A4mRE1T1IfsrSkwu3mx2eo VLNmJWdtW49flKYkc6L6KQCkaWT 6WGFtdRqhYoLsaN05Mek+PGNvbG rqr7HjPzqcf5zmw5qpuVn4 LaFcSCIqepPldGelCLU3y4WsKy7 4M90fSMmuKRFrMVLvPYKuEUTnxD mdvf8saQ4zUb3+PGNvbCB3 sSZ5iC8jSSZiGyO2DLklL950OcY oaEFlWzqsy6rwz2ccoQa6RfFkPJ BmwbHthEvkLPD8i8FnNi75 E91wESjgZTBbSBOgKVYkQKMqgNz pjb6tlN0bNq3+AZ1ws7kiqq21xH 48dHI+KFBpEMF9wYzxJXye GZSrwW0gULziEvQ3LCDhVhIbxA7 2kOPmEZktUb0qhKdekXaoIT1zRM Rnkunrx549ZhPzz9ddMDLj fUOqFTplYCG4O39mi2S8FAAbEQK yWCW8tTO2pU6pvXfuvhihlPGznE qoyrJkwNduAXluRPiaC065 IHRvcDsnPlBhdGllbnQgTmFtZTo 6P6XdQig2XXTbdBqnVB5vzUNbIM klPu1unClfeNavQF5rNUNk wsrqz585VpDxv6qjYCYekHAgNAe gOAA5Y95yw7L8EBNgSPFfYHU1tN S5cH0trWhlqfcruIZyyUps hyGsmBryTGtuNPttY297KRCxxJl jHbRflyKeGEYezVH4BU27QQ37zQ Ile4X9vEF0T7QsNZJxyeuo gsvabEX1TAQcRMVwkV57Gu0haAr nMl8zJCRsUPP9EVStwZBjD8JytE 5zTcXcQAYvNBNcK4CwqVMc VAlqA334MXidOiG2GETcxqPiO7I vJPXbhPpcLoD5x2M6Nb7MP6C5MX 14EH69yIQgg5K8bNB6E6Ek NOZekjqrlfxgtZD2UUCsFYPwvP2 4No4osJjuCx5aGSTbYCL6TRBxkM TwH9AfeW9kKyHeJEHsHFZa F6DyjNYsVGyiC117WDpjYiE7COB kmmGrG1SpMRPfrMurGjW1z1I2Wc 0ADCo1FN13WY07wPNxq7W8 dOT8B7HhWEAjopulnrecrGS7UTS rDXAlpH87Nd0uyEgnIm1fNSGdJY W0ZUUwwAHqX1GnfZ4cQtWh TPViKGYxU6OmaBFvVFtxZ541VBy jYbP3IZLaiwSsK3HpYHXizLqrXp X9x5M1Jd8QTTJeLO88LWQ7 lQN6BV48IJ39Y3LzJxpsmWXvjLC +PHRhYmxlIHdpZHRoPScxMDAlJy QivHarDC9aUj5vAWCfFRFc iPwfbOHvFmVjx6wiZFQhGAmdLC2 pcXhmP7LghUZ4YOTgt1h7Im86P0 6qQ5KnmLM+ZNBrwQP8kKB8 bA4hKnRoRvT6OTdfO740YmMlnMR pEarek3itf3ikbKk3VpI4FTMdae SlxFnfIJF8m9JbRz51P35a IHdpZHRoPSIxNSUiIHZhbGlnbj0 hoO1uEw0+INYzcVH3jSW6lT8pHi PaUzV5LYtqT460GcCqnAHv Vsjgw5gad7zcfFt3CvRrTHIuxrU xnRhhVBN7l5SsGf90E1IruNolz5 VyPah0yb71wKOwj4K3aPI1 A7OwXLVmjryiyUMwzViwKC4qJOB oizxvVDGhvX1zAIWkW9e5NsAqGy B4GChrK4WkbsD0XHDylCGf KZokFEZ5G51up4V4MLQrDWOwDZH 8gSJ0lA3kvKawmueqiPQvqEgqjx NpzNrrQNguTZtfW753RFGr yKlkEBVmbS2tHBUssJEseGhzJB6 wNTBpbjsnPkxBUktJTlMsIFBFR0 fKRM42JH65dOQjx6P5vQH2 P1UiFDJyeshhadboyZO3ROFvAEU jbC33cUJqSWqmFx2oa3K8k012SV NeAJHoeW16Xn1dyXptOCRs fARSaA3otllaj1wsvpezNnJtOTW jFYt7WPa0BIWihBixKxIwGOA7Tb L5LIS0nTHmxB5euPpbnzhr lB5sGmh+HLOpPCQrAEn8EIelbHZ +MZFfEWA5zJkaDCpcARWnlW4cOG RvC7f2YyEhZdZ1WAjeQ9Ka IAJbqxijAj98hU8vEjBjTiJ9YCw iX0HzwlV9QJNzhUQxZGwiNMP8B8 9hw7Y1WAOtUFVsQHL9xIX2 jA1bcOvfigctiELkvOijtyFaqYy vZAwwHPnhM919KELahIvdOsm6BZ hvLWYmOW81YC47lUBls1D4 wBH2X2FxAKQnggiimjsmqKP5YYS zCVVcaM44rBAbUAoeSv7vz4A8b0 00GVFvMUEffA81Eg5htBca UJMvdHWUgB8imfkam8fblhvnIhR dYQDhZTs5KEo0MTUkrPvuRdFlNE F5GbB0EII7xQYffL0lnWkn vrvglF5xVbr+NyKyZYwwOR13JC4 1lGKrk9V1qRQ9J2XkSEYbddjfxt inhII6IOLtIBVnuG21uSAo SYyhFs0hh6L1h874ZEQqFYTmnU1 2Dz1osRrzEQMinDVGwX5pnjmxx2 vdihjcPyDyQPPySUe0DPf8 TAOhsOioMqMvMTT4UmO8OQN2aJH vaJ7phFkiqqmsiQ0qFui+T3V0cG K7iYGpaRwojVR+PI79ui08 L2KvVmmzKvp4QMRlVZI6eLJ9bN7 eXJXlZPqfc5X5bPL6H0UyfuSjqw 8yy0utWKAuDKbwP24ahKNh u4P8GMHywTW1KMTbbMpzWkPtoY8 3Oyc+NRGrrWuex7JjDbxoh7oku5 jcuRe1GrCuYDHhkuBcfFxs DSG5h7QuDq11R18nUXimGYJdYVH nUCBlTBMvlAzxxb1qrJ3yRs5+PG KmeRW3rNU4eP1cTtGbEwH5 OQuoH454VdFznRJjZhhyl6zub1l juJo0UeMaTXFbqxTnuRewDEA1u9 CwTq22Y5LpeYomd9FvNtr9 fh23mNUxl9G2wFF2P4IwQHYxatf nvEMejJlnXR0wVNGxdkocXLGghO 9vKXUdK1u8WpMwKnE6KDra X7DfqxX7UOZswTGyZKXylAKCgR9 zkxngt1gtxmyqLaBrKUUtRNf8UO j5OQKwiGoyDiIfTVM6RhP6 TOJ1sZAojE2oiVgwbzyarW3xPsz +UXh3f7xujXJhVD7veDH1KF01HI 93uOMby1F6fDB5A7TlPZVl dmgqweffzVC3DSYlVHEewW45Be8 idEvzBi7wCZDsKJP4HLWhsMAaN1 QocZ8yHsIbLPVcYPRrB4Jv qSAnOBjtI069IBzgPwQ5UFBotmZ iS0VxJFZteUcvZvO8y4K0Yo7AWD 34DR64DX62rRLxw1R3vOW0 C6CzSBGhijuznqvzqMD9IQAfCAO kgR58Wf4jaVmaFu7zEHPvAUZ2WO KvsQKoU7ClvQ8sOmStGIBz RDPjR5HhoQIlMCygF020DOacGsC 7HSViyuOsE6NaVOPxmHucYvK3a7 A0Fb0ZPx54AU42WF78fRHa u4V6oIL1H2CvCXSsblwzeuixdFN 9EEBkBFIfxW81Si1ewAtrMq8dEX NiRNI0ENXrlGRfE5YytL9h GrPiIDTpJAOuL9RzuWDoRRzuZ58 7OHscXsS4XPIjzoSjM5OnWCYxbJ zhDmI4i8O0Yu0REElybfl3 Z4GbCqnalPD+HC55BHUiWE14wSQ ryQIpl8tzpKj6RuIhISRaRDG1oI srROmfy6IkXMMfE76teOVb c2U6 (more content not included)... Normal [facility] Complete Blood Count Auto Di ffon 01-16-2023 Basophils (Bld) [#/Vol] 0.0 10*3/uL Normal 0.0-0.2 [facility] Comment on above: Order Comment: PT IS FASTING Result Comment: PERF ORMED BY: [place] [address] PATHOLOGIST BAD WORK GATHERER THERESA MULLER M.D. Performed By: #### L IPID, CMP, A1C WTH eA, CBC #### [facility] [address] [place] [address] [place] Basophils/100 WBC (Bld) 0.2 % Normal . [facility] Comment on above: Order Comment: PT IS FASTING Performed By: #### L IPID, CMP, A1C WTH eA, CBC #### [facility] [address] [place] [address] Eosinophils (Bld) [#/Vol] 0.1 10*3/uL Normal 0.0-0.45 [facility] Comment on above: Order Comment: PT IS FASTING Performed By: #### L IPID, CMP, A1C WTH eA, CBC #### [facility] [address] [place] [address] Eosinophils/100 WBC (Bld) 2.2 % Normal . [facility] Comment on above: Order Comment: PT IS FASTING Performed By: #### L IPID, CMP, A1C WTH eA, CBC #### [facility] [address] [place] [address] Erythrocyte distribution width (RBC) [Ratio] 17.4 % High 11.9-15.3 [facility] Comment on above: Order Comment: PT IS FASTING Performed By: #### L IPID, CMP, A1C WTH eA, CBC #### [facility] [address] [place] [address] Hematocrit (Bld) [Volume fraction] 31.4 % Low 34.0-46.4 [facility] Comment on above: Order Comment: PT IS FASTING Performed By: #### L IPID, CMP, A1C WTH eA, CBC #### [facility] [address] [place] [address] Hemoglobin (Bld) [Mass/Vol] 10.6 g/dL Low 11.8-15.4 [facility] Comment on above: Order Comment: PT IS FASTING Performed By: #### L IPID, CMP, A1C WTH eA, CBC #### [facility] [address] [place] [address] Lymphocytes (Bld) [#/Vol] 1.3 10*3/uL Normal 1.00-4.8 [facility] Comment on above: Order Comment: PT IS FASTING Performed By: #### L IPID, CMP, A1C WTH eA, CBC #### [address] Lymphocytes/100 WBC (Bld) 22.6 % Normal . [facility] Comment on above: Order Comment: PT IS FASTING Performed By: #### L IPID, CMP, A1C WTH eA, CBC #### [address] MCH (RBC) [Entitic mass] 28.7 pg Normal 24.7-34.3 [facility] Comment on above: Order Comment: PT IS FASTING Performed By: #### L IPID, CMP, A1C WTH eA, CBC #### [address] MCV (RBC) [Entitic vol] 85.1 fL Normal 80-100 [facility] Comment on above: Order Comment: PT IS FASTING Performed By: #### L IPID, CMP, A1C WTH eA, CBC #### [address] Mean Corpuscular HGB Conc 33.7 g/dL Normal 32.0-35.0 [facility] Comment on above: Order Comment: PT IS FASTING Performed By: #### L IPID, CMP, A1C WTH eA, CBC #### [facility] [address] [place] [address] [place] Monocytes (Bld) [#/Vol] 0.3 10*3/uL Normal 0.0-0.8 [facility] Comment on above: Order Comment: PT IS FASTING Performed By: #### L IPID, CMP, A1C WTH eA, CBC #### [place] [id number] [place] Monocytes/100 WBC (Bld) 4.5 % Normal . [facility] Comment on above: Order Comment: PT IS FASTING Performed By: #### L IPID, CMP, A1C WTH eA, CBC #### [facility] [address] Neutrophils (Bld) [#/Vol] 4.0 10*3/uL Normal 1.8-7.7 [facility] Comment on above: Order Comment: PT IS FASTING Performed By: #### L IPID, CMP, A1C WTH eA, CBC #### [address] Neutrophils/100 WBC (Bld) 70.5 % Normal . [facility] Comment on above: Order Comment: PT IS FASTING Performed By: #### L IPID, CMP, A1C WTH eA, CBC #### [address] NRBC% 0.1 /100{WBC} Normal 0-0.5 [facility] Comment on above: Order Comment: PT IS FASTING Performed By: #### L IPID, CMP, A1C WTH eA, CBC #### [address] Platelet mean volume (Bld) [Entitic vol] 7.4 fL Normal 6.3-10.7 [facility] Comment on above: Order Comment: PT IS FASTING Performed By: #### L IPID, CMP, A1C WTH eA, CBC #### [facility] [address] [place] [address] [place] Platelets (Bld) [#/Vol] 152 10*3/uL Normal 150-450 [facility] Comment on above: Order Comment: PT IS FASTING Performed By: #### L IPID, CMP, A1C WTH eA, CBC #### [facility] [address] [place] [address] [place] RBC (Bld) [#/Vol] 3.69 10*6/uL Normal 3.60-5.00 [facility] Comment on above: Order Comment: PT IS FASTING Performed By: #### L IPID, CMP, A1C WTH eA, CBC #### [facility] [address] WBC (Bld) [#/Vol] 5.7 10*3/uL Normal 3.8-11.6 [facility] Comment on above: Order Comment: PT IS FASTING Performed By: #### L IPID, CMP, A1C WTH eA, CBC #### [facility] [address] Comprehensive Metabolic Pane palmer 01-16-2023 Albumin [Mass/Vol] 3.6 g/dL Normal 3.2-5.5 [facility] Comment on above: Order Comment: PT IS FASTING Performed By: #### L IPID, CMP, A1C WTH eA, CBC #### [facility] [address] Albumin/Globulin [Mass ratio] 1.6 {ratio} Normal [facility] Comment on above: Order Comment: PT IS FASTING Performed By: #### L IPID, CMP, A1C WTH eA, CBC #### [facility] [address] ALP [Catalytic activity/Vol] 100 U/L High 32-92 [facility] Comment on above: Order Comment: PT IS FASTING Performed By: #### L IPID, CMP, A1C WTH eA, CBC #### [facility] [address] ALT [Catalytic activity/Vol] 26 U/L Normal 10-60 [facility] Comment on above: Order Comment: PT IS FASTING Performed By: #### L IPID, CMP, A1C WTH eA, CBC #### [facility] [address] Anion gap [Moles/Vol] 16.0 mmol/L High 6.0-15.0 [facility] Comment on above: Order Comment: PT IS FASTING Performed By: #### L IPID, CMP, A1C WTH eA, CBC #### [facility] [address] [place] [address] [place] AST [Catalytic activity/Vol] 31 U/L Normal 10-42 [facility] Comment on above: Order Comment: PT IS FASTING Performed By: #### L IPID, CMP, A1C WTH eA, CBC #### [facility] [address] Bilirubin [Mass/Vol] 0.5 mg/dL Normal 0.3-1.2 [facility] Comment on above: Order Comment: PT IS FASTING Performed By: #### L IPID, CMP, A1C WTH eA, CBC #### [facility] [address] Calcium [Mass/Vol] 8.2 mg/dL Normal 8.2-10.2 [facility] Comment on above: Order Comment: PT IS FASTING Performed By: #### L IPID, CMP, A1C WTH eA, CBC #### [facility] [address] Chloride [Moles/Vol] 101 mmol/L Normal 95-114 [facility] Comment on above: Order Comment: PT IS FASTING Performed By: #### L IPID, CMP, A1C WTH eA, CBC #### [facility] [address] CO2 [Moles/Vol] 28.0 mmol/L Normal 22.0-30.0 [facility] Comment on above: Order Comment: PT IS FASTING Performed By: #### L IPID, CMP, A1C WTH eA, CBC #### [facility] [address] [place] [address] [place] Creatinine [Mass/Vol] 1.51 mg/dL High 0.44-1.03 [facility] Comment on above: Order Comment: PT IS FASTING Performed By: #### L IPID, CMP, A1C WTH eA, CBC #### [facility] [address] [place] [address] [place] Estimated GFR ( Rashmi 41 Normal [facility] Comment on above: Order Comment: PT IS FASTING Result Comment: GFR estimated reference range: According to KDOQI guidelines, <60 ml/min/1.73m2 is sufficient to diagnose a patient with chronic kidney disease. Performed By: #### L IPID, CMP, A1C WTH eA, CBC #### [facility] [address] Estimated GFR (Non- Am 34 [facility] Comment on above: Order Comment: PT IS FASTING Performed By: #### L IPID, CMP, A1C WTH eA, CBC #### [facility] [address] [place] [address] [place] Globulin (S) [Mass/Vol] 2.3 g/dL [facility] Comment on above: Order Comment: PT IS FASTING Performed By: #### L IPID, CMP, A1C WTH eA, CBC #### [facility] [address] Glucose [Mass/Vol] 162 mg/dL High 70-100 [facility] Comment on above: Order Comment: PT IS FASTING Result Comment: [facility] Glucose Reference Range is dependent on time and content of last meal. Glucose of more than 200 mg/dL in a nonstressed, ambulatory subject supports the diagnosis of Diabetes Mellitus. ADA recommended reference range Performed By: #### L IPID, CMP, A1C WTH eA, CBC #### [facility] [address] Potassium [Moles/Vol] 4.0 mmol/L Normal 3.5-5.1 [facility] Comment on above: Order Comment: PT IS FASTING Performed By: #### L IPID, CMP, A1C WTH eA, CBC #### [facility] [address] [place] [address] [place] Protein [Mass/Vol] 5.9 g/dL Low 6.1-7.9 [facility] Comment on above: Order Comment: PT IS FASTING Performed By: #### L IPID, CMP, A1C WTH eA, CBC #### [facility] [address] Sodium [Moles/Vol] 141 mmol/L Normal 136-146 [facility] Comment on above: Order Comment: PT IS FASTING Performed By: #### L IPID, CMP, A1C WTH eA, CBC #### [facility] [address] [place] [id number] [place] Urea nitrogen [Mass/Vol] 42 mg/dL High 9-23 [facility] Comment on above: Order Comment: PT IS FASTING Performed By: #### L IPID, CMP, A1C WTH eA, CBC #### [facility] [address] [place] [id number] [place] Creatinine and Glomerular fi ltration rate.predicted panel (S/P/Bld)Ordered By: Vinay Bunhomer on 01-16-2023 Creatinine [Mass/Vol] 1.51 mg/dL 0.44-1.03 [facility] Eosinophils Auto (Bld) [#/Vo l]Ordered By: Vinay Bunting on 01-16-2023 Eosinophils (Bld) [#/Vol] 0.1 10*3/uL 0.0-0.45 [facility] Eosinophils/100 WBC Auto (Bl d)Ordered By: Vinay Bunting on 01-16-2023 Eosinophils/100 WBC (Bld) 2.2 % . [facility] Erythrocyte distribution wid th Auto (RBC) [Ratio]Ordered By: Vinay Bunting on 01-16-2023 Erythrocyte distribution width (RBC) [Ratio] 17.4 % 11.9-15.3 [facility] Estimated glomerular filtrat ion rate (GFR) non- AmericanOrdered By: Vinay Bunting on 01-16-2023 GFR/1.73 sq M.predicted among non-blacks MDRD (S/P/Bld) [Vol rate/Area] 34 mL/Min [facility] Globulin Calc (S) [Mass/Vol] Ordered By: Vinay Bunting on 01-16-2023 Globulin (S) [Mass/Vol] 2.3 g/dL [facility] Glucose [Mass/volume] in Ser um or PlasmaOrdered By: Vinay Bunhomer on 01-16-2023 Glucose [Mass/Vol] 162 mg/dL 70-100 [facility] Comment on above: ADA recommended refe [...] glycated hemoglobin (Bld) [Mass/Vol] 171 mg/dL [facility] Hematocrit Auto (Bld) [Volum e fraction]Ordered By: Vinay Matta on 01-16-2023 Hematocrit (Bld) [Volume fraction] 31.4 % 34.0-46.4 [facility] Hemoglobin A1c percentageOrd ered By: Vinay Matta on 01-16-2023 HbA1c (Bld) [Mass fraction] 7.6 % 4.3-5.6 [facility] Comment on above: Increased risk for d iabetes: 5.7 - 6.4diabetes: >6.4glycemic control for adults with diabetes: <7.0 Hemoglobin [Mass/volume] in BloodOrdered By: Vinay Matta on 01-16-2023 Hemoglobin (Bld) [Mass/Vol] 10.6 g/dL 11.8-15.4 [facility] Leukocytes [#/volume] correc remberto for nucleated erythrocytes in Blood by Automated counOrdered By: Vinay Matta on 01-16-2023 WBC corrected for nucl RBC Auto (Bld) [#/Vol] 5.7 10*3/uL 3.8-11.6 [facility] Lipid Panelon 01-16-2023 Cholesterol [Mass/Vol] 130 mg/dL Low 140-200 [facility] Comment on above: Order Comment: PT IS FASTING Result Comment: Chol less than 200 mg/dl low risk Chol 201-239 mg/dl borderline risk Chol 240 mg/dl and greater high risk Performed By: #### L IPID, CMP, A1C WT eA, CBC #### [facility] [address] Cholesterol in HDL [Mass/Vol] 34 mg/dL Low 35-85 [facility] Comment on above: Order Comment: PT IS FASTING Result Comment: HDL CHOL ATP-III CLASSIFICATION Cardiovascular Risk HDL > or equal to 60 mg/dL LOW HDL < 40 mg/dL HIGH Performed By: #### L IPID, CMP, A1C WT eA, CBC #### [address] Cholesterol.total/Chol esterol in HDL [Mass ratio] 3.8 {ratio} Normal <5.0 [facility] Comment on above: Order Comment: PT IS FASTING Result Comment: PERF ORMED BY: [place] [address] PATHOLOGIST [employer] THERESA MULLER M.D. Performed By: #### L IPID, CMP, A1C WT eA, CBC #### [address] LDL Cholesterol,Calculated 74 mg/dL Normal 0-100 [facility] Comment on above: Order Comment: PT IS FASTING Result Comment: LDL ATP III CLASSIFICATION LDL less than 100 mg/dL Optimal LDL 100-129 mg/dL Near or above optimal LDL 130-159 mg/dL Borderline high LDL 160-189 mg/dL High LDL greater than 189 mg/dL Very high Performed By: #### L IPID, CMP, A1C WTH eA, CBC #### [address] Triglyceride w/Reflex 109 mg/dL Normal 35-149 [facility] Comment on above: Order Comment: PT IS FASTING Result Comment: TRIG ATP III CLASSIFICATION TRIG less than 150 mg/dL Normal TRIG 150-199 mg/dL Borderline high TRIG 200-500 mg/dL High TRIG greater than 500 mg/dL Very high Standard traceable to the Center for Disease Conrtrol and Prevention (CDC) test method. Performed By: #### L IPID, CMP, A1C WTH eA, CBC #### [address] VLDL CHOLESTEROL 21 mg/dL Normal [facility] Comment on above: Order Comment: PT IS FASTING Performed By: #### L IPID, CMP, A1C WTH eA, CBC #### [facility] [address] [place] [address] [place] Lymphocytes Auto (Bld) [#/Vo l]Ordered By: Vinay Matta on 01-16-2023 Lymphocytes (Bld) [#/Vol] 1.3 10*3/uL 1.00-4.8 [facility] Lymphocytes/100 WBC Auto (Bl d)Ordered By: Vinay Bunting on 01-16-2023 Lymphocytes/100 WBC (Bld) 22.6 % . [facility] MCH Auto (RBC) [Entitic mass ]Ordered By: Vinay Bunting on 01-16-2023 MCH (RBC) [Entitic mass] 28.7 pg 24.7-34.3 [facility] MCHC Auto (RBC) [Mass/Vol]Or dered By: Vinay Bunting on 01-16-2023 MCHC (RBC) [Mass/Vol] 33.7 g/dL 32.0-35.0 [facility] MCV Auto (RBC) [Entitic vol] Ordered By: Vinay Bunting on 01-16-2023 MCV (RBC) [Entitic vol] 85.1 fL 80-100 [facility] Monocytes Auto (Bld) [#/Vol] Ordered By: Vinay Bunting on 01-16-2023 Monocytes (Bld) [#/Vol] 0.3 10*3/uL 0.0-0.8 [facility] Monocytes/100 WBC Auto (Bld) Ordered By: Vinay Bunting on 01-16-2023 Monocytes/100 WBC (Bld) 4.5 % . [facility] Neutrophils Auto (Bld) [#/Vo l]Ordered By: Vinay Bunting on 01-16-2023 Neutrophils (Bld) [#/Vol] 4.0 10*3/uL 1.8-7.7 [facility] Neutrophils/100 WBC Auto (Bl d)Ordered By: Vinay Bunting on 01-16-2023 Neutrophils/100 WBC (Bld) 70.5 % . [facility] No Panel InformationOrdered By: Vinay Matta on 01-16-2023 Estimated GFR () 41 mL/Min [facility] Comment on above: GFR estimated refere nce range: According to KDOQI guidelines, <60 ml/min/1.73m2 is sufficient to diagnose a patient with chronic kidney disease. Pharmacy Creatinine Clearance (Chem N/A [facility] Nucleated erythrocytes [Pres ence] in Blood by Automated countOrdered By: Vinay Matta on 01-16-2023 Nucleated RBC Auto Ql (Bld) 0.1 /100{WBC} 0-0.5 [facility] Platelet mean volume Auto (B ld) [Entitic vol]Ordered By: Vinay Bunting on 01-16-2023 Platelet mean volume (Bld) [Entitic vol] 7.4 fL 6.3-10.7 [facility] Platelets Auto (Bld) [#/Vol] Ordered By: Vinay Bunting on 01-16-2023 Platelets (Bld) [#/Vol] 152 10*3/uL 150-450 [facility] Potassium [Moles/volume] in Serum or PlasmaOrdered By: Vinay Bunting on 01-16-2023 Potassium [Moles/Vol] 4.0 mmol/L 3.5-5.1 [facility] Protein [Mass/volume] in Ser um or PlasmaOrdered By: Vinay Bunting on 01-16-2023 Protein [Mass/Vol] 5.9 g/dL 6.1-7.9 [facility] RBC Auto (Bld) [#/Vol]Ordere d By: Vinay Bunting on 01-16-2023 RBC (Bld) [#/Vol] 3.69 10*6/uL 3.60-5.00 [facility] Serum or plasma alanine stubbs otransferase measurement without P-5'-P (enzymatic activiOrdered By: Vinay Bunting on 01-16-2023 ALT No additional P-5'-P [Catalytic activity/Vol] 26 U/L 10-60 [facility] Serum or plasma albumin/glob ulin mass ratioOrdered By: Vinay Bunting on 01-16-2023 Albumin/Globulin [Mass ratio] 1.6 {ratio} [facility] Serum or plasma anion gap de terminationOrdered By: Vinay Bunting on 01-16-2023 Anion gap [Moles/Vol] 16.0 mmol/L 6.0-15.0 [facility] Serum or plasma high density lipoprotein (HDL) cholesterol measurementOrdered By: Vinay Bunting on 01-16-2023 Cholesterol in HDL [Mass/Vol] 34 mg/dL 35-85 [facility] Comment on above: HDL CHOL ATP-III CLA SSIFICATION Cardiovascular RiskHDL > or equal to 60 mg/dL LOWHDL < 40 mg/dL HIGH Serum or plasma total choles terol/high density lipoprotein (HDL) cholesterol mass ratOrdered By: Vinay Bunhomer on 01-16-2023 Cholesterol.total/Chol esterol in HDL [Mass ratio] 3.8 {ratio} <5.0 [facility] Sodium [Moles/volume] in Ser um or PlasmaOrdered By: Vinay Bunting on 01-16-2023 Sodium [Moles/Vol] 141 mmol/L 136-146 [facility] Triglyceride [Mass/volume] i n Serum or PlasmaOrdered By: Vinay Bunting on 01-16-2023 Triglyceride [Mass/Vol] 109 mg/dL 35-149 [facility] Comment on above: TRIG ATP III CLASSIF ICATIONTRIG less than 150 mg/dL NormalTRIG 150-199 mg/dL Borderline highTRIG 200-500 mg/dL High TRIG greater than 500 mg/dL Very highStandard traceable to the Center for Disease Conrtrol and Prevention (CDC) test method. Urate [Mass/volume] in Serum or PlasmaOrdered By: Vinay Bunhomer on 01-16-2023 Urate [Mass/Vol] 5.7 mg/dL 2.6-7.2 [facility] Urea nitrogen [Mass/volume] in Serum or PlasmaOrdered By: Vinay Bunting on 01-16-2023 Urea nitrogen [Mass/Vol] 42 mg/dL 9-23 [facility] Uric Acidon 01-16-2023 Urate [Mass/Vol] 5.7 mg/dL Normal 2.6-7.2 [facility] Comment on above: Order Comment: PT IS FASTING Performed By: #### L IPID, CMP, A1C [facility] eA, CBC #### [facility] [address] WBC Auto (Bld) [#/Vol]Ordere d By: Vinay Matta on 01-16-2023 WBC (Bld) [#/Vol] 5.7 10*3/uL 3.8-11.6 [facility] Consent for Treatmenton 12-18 Consent for Treatment [id number]#1.00CD:127 Normal [facility] NM Gastric Emptying Studyon 01-08-2023 NM [...] 4.0 hr (Upper Limit 10%) 8 Normal [facility] Glucose Glucometer (BldC) [M ass/Vol]Ordered By: Rafael Edouard on 12-29-2022 Glucose [Mass/Vol] 165 mg/dL [facility] Comment on above: Random Glucose Refer ence Range is dependent on time and content of last meal. Glucose of more than 200 mg/dL in a nonstressed, ambulatory subject supports the diagnosis of Diabetes Mellitus. Glucose Poct Glucometerson 0 12-29-2022 Glucose [Mass/Vol] 165 mg/dL Normal [facility] Comment on above: Result Comment: Brandon om Glucose Reference Range is dependent on time and content of last meal. Glucose of more than 200 mg/dL in a nonstressed, ambulatory subject supports the diagnosis of Diabetes Mellitus. PERFORMED BY: [place] [address] [place] [address] PATHOLOGIST BAD WORK GATHERER THERESA MULLER M.D. Performed By: #### L IPID, CMP, A1C [facility] eA, CBC #### [address] 12-29-2022 L ------- Specimen: [id number] Received: 12/30/22 Status: THERESA Keatingisidoro Num: [id number] Spec Type: Surgical Subm Dr: Rafael Edouard MD Tissues: A Skin-Other than Cyst, tag, debridement or plastic repair (ABDOMINAL SKIN UL Procedures: Mark MARROQUIN/Ruchi L4 Age/ Patient Sex Location Account Attending Physician Anh Tejeda 71/F [place] [id number] Rafael Edouard MD SPEC NUM: [id number] RECD: 12/30/22 STATUS: THERESA KAUFMAN NUM: [id number] KATYA: 12/29/22- SUBM DR: Rafael Edouard MD ENTERED: 12/30/22 [facility] DR: SPEC TYPE: Surgical DEPT: S ENTERED BY: [id number] RECV BY: [id number] ORDERED: HE/2, Gross/Micro L4 ORDERED: HE/2, Gross/Micro [...] The specimen is inked and sectioned transversely. Engineering Analyst sections are submitted in 2 cassettes as follows: A1 - Central transverse sections of ulcer A2 - Radial tips Microscopic Description Two glass slides with H E stained material have been examined. The microscopic findings support the above pathologic diagnosis. Specimen: [id number] Received: 12/30/22 Status: THERESA Ke[place]is[place]oro Num: [id number] Spec Type: Surgical Subm Dr: Rafael Edouard MD Tissues: A Skin-Other than Cyst, tag, debridement or plastic repair (ABDOMINAL SKIN [facility] Procedures: HE/2, Gross/Micro L4 Patient: Anh Tejeda [id number] (Continued) Specimen: [id number] Received: 12/30/22 (Continued) Signed (signature on file) Carly Larkin MD 12/31/22 1404 Specimen: [id number] Received: 12/30/22 Status: VIETFawad Kaufman Num: [id number] Spec Type: Surgical Subm Dr: Rafael Edouard MD Tissues: A Skin-Other than Cyst, tag, debridement or plastic repair (ABDOMINAL SKIN [facility] Procedures: HE/2, Gross/Micro L4 Patient: Anh Tejeda [id number] (Continued) Specimen: [id number] Received: 12/30/22 (Continued) CPT Codes 17842 Specimen: [id number] Received: 12/30/22 Status: THERESA Kaufman Num: [id number] Spec Type: Surgical Subm Dr: Rafael Edouard MD Tissues: A Skin-Other than Cyst, tag, debridement or plastic repair (ABDOMINAL SKIN [facility] Procedures: HE/Mark Garcia/Micro L4 Patient: Anh Tejeda [id number] (Continued) Signed (signature on file) Carly Larkin MD 12/31/22 1404 [facility] Ambulatory Visit Summaryon 0 12-24-2022 Ambulatory Visit Summary ANH TEJEDA :1950 Visit Date:12/24/2022 Ambulatory Visit Instructions Your Diagnosis Chronic GERD Anemia History of rectal polyps Elevated alkaline phosphatase level Nausea B12 deficiency Your Care Team Attending Physician - Nisa Mirnada CNP Primary Care Physician - VINAY MATTA [...] mg oral tablet) omeprazole (omeprazole 20 mg Cap-) ropinirole (ropinirole 0.5 mg Tab) Procedures Performed Colonoscopy (06/12/2022), Esophagogastroduodenoscopy (06/12/2022). Discharge Vitals Temperature (Temporal Artery) 36 ?C Heart Rate (Peripheral) 77 Blood Pressure 132/75 Height 160 cm Height 63 in Weight 97.2 kg Weight 213.84 lb BMI 37.97 What to do next Scheduled Follow-Up Appointments Thursday 10:00 AM EDT With: Where: [facility] Thursday 9:20 AM EDT With: Nisa Miranda CNP Where: [facility] Digestive Health Normal [facility] Gastroenterology Office/Clin ic Noteon 12-24-2022 Gastroenterology [...] in ER for chest pain 01/2022 at [facility] and had negative stress test and pantoprazole [...] level, normal (more content not included)... Normal [facility] Comment on above: Result Comment: Elec tronically Signed By: Ruth FERMIN, Nisa Hankins\.br\Date and Time Signed: 12/24/22 10:33 EST Patient [...] vinegar, hot sauces, and barbecue sauce. ? Breathitt fruit juices and citrus fruits, such as oranges, myron, and limes. ? Tomato-based foods, such as red sauce, chili, salsa, and pizza with red sauce. ? Fried and fatty foods, such as donuts, cameroonian fries, potato chips, and high-fat dressings. ? [...] ? Pay attent (more content not included)... [facility] Pre-Certification Formon Pre-Certification Form [id number]#1.00CD:127 [facility] Lab Reportson 12-20-2022 Lab Reports [id number]#1.00CD:127 [facility] Lab Reports [id number]#1.00CD:127 [facility] Afshin 12-15-2022 ILEANA Telephone (MARSHALL) ANH TEJEDA ([id number]) 1950 F Date Time Provider Department 12/15/22 JOVANNI CRUZ During your visit today, we recorded the following information about you: Jovanni Cruz RN 12/15/2022 9:36 AM Signed ----- Message from Daksha Bridges PA-C sent at 12/15/2022 8:11 AM EST ----- Please call with normal [facility]. Keep appointments as scheduled Jovanni Cruz RN 12/15/2022 2:30 PM Signed Informed pt of Daksha's message. Pt verbalized understanding and denies further needs at this time. Jovanni Cruz RN Allergies As of Date: 12/15/2022 Noted [...] Results [95] Prescriptions as of 12/15/2022 - MEDIJEN, JEN, 100 % pste APPLY A THIN LAYER [...] chronic blood los*10/03/2022 Encounter Status:Closed by JOVANNI CRUZ on 12/15/22 Normal [facility] Consultation Noteon 12-15-19 Consultation Note [id number]#[id number]:127 Normal [facility] CBC W Auto Differential pane l (Bld)on 12-12-2022 Basophils (Bld) [#/Vol] 0.03 10*3/uL Normal <0.11 [facility] Comment on above: Order Comment: Speci men Type: BLOOD SPECIMEN Ordering Facility: [facility] Address: [address] [place], [place] [address] Performed By: #### 5 0190-8, 6-4 #### [facility] CLIA [id number] [address] [place] [address] [place] Basophils/100 WBC (Bld) 0.5 % Normal [facility] Comment on above: Order Comment: Speci men Type: BLOOD SPECIMEN Ordering Facility: [facility] Address: [address] Performed By: #### 5 0190-8, 2275- #### [facility] CLIA [id number] [address] [place] [address] [place] Differential cell count method Nom (Bld) Auto Normal [facility] Comment on above: Order Comment: Speci men Type: BLOOD SPECIMEN Ordering Facility: [facility] Address: [address] [place] [address] Performed By: #### 5 0190-8, 2276-02 #### [facility] CLIA [id number] [address] [place] [address] [place] Eosinophils (Bld) [#/Vol] 0.14 10*3/uL Normal <0.46 [facility] Comment on above: Order Comment: Speci men Type: BLOOD SPECIMEN Ordering Facility: [facility] Address: [address] Performed By: #### 5 0190-8, 2276-02 #### [facility] CLIA [id number] [address] [place] [address] [place] Eosinophils/100 WBC (Bld) 2.5 % Normal [facility] Comment on above: Order Comment: Speci men Type: BLOOD SPECIMEN Ordering Facility: [facility] Address: [address] [place] [address] Performed By: #### 5 0190-8, 2276-02 #### [facility] CLIA [id number] [address] [place] [address] [place] Erythrocyte distribution width (RBC) [Ratio] 18.6 % High 11.5-15.0 [facility] Comment on above: Order Comment: Speci men Type: BLOOD SPECIMEN Ordering Facility: [facility] Address: [address] [place], [place] [id number] Performed By: #### 5 0190-8, 2276-02 #### [facility] CLIA [id number] [address] [place] [address] [place] Hematocrit (Bld) [Volume fraction] 32.6 % Low 36.0-46.0 [facility] Comment on above: Order Comment: Speci men Type: BLOOD SPECIMEN Ordering Facility: [facility] Address: [address] [place], [place] [address] Performed By: #### 5 0190-8, 2275- #### [facility] CLIA [id number] [address] [place] [address] [place] Hemoglobin (Bld) [Mass/Vol] 10.5 g/dL Low 11.5-15.5 [facility] Comment on above: Order Comment: Speci men Type: BLOOD SPECIMEN Ordering Facility: [facility] Address: [address] [place] [address] Performed By: #### 5 0190-8, 2275-4 #### [facility] CLIA [id number] [address] [place] [address] [place] Immature granulocytes (Bld) [#/Vol] 0.03 10*3/uL Normal <0.10 [facility] Comment on above: Order Comment: Speci men Type: BLOOD SPECIMEN Ordering Facility: [facility] Address: [address] [place] [address] Performed By: #### 5 0190-8, 2275- #### [facility] CLIA [id number] [address] [place] [address] [place] Immature granulocytes/100 WBC (Bld) 0.5 % Normal [facility] Comment on above: Order Comment: Speci men Type: BLOOD SPECIMEN Ordering Facility: [facility] Address: [address] [place] [address] Performed By: #### 5 0190-8, 2275-4 #### [facility] CLIA [id number] [address] [place] [address] [place] Lymphocytes (Bld) [#/Vol] 1.24 10*3/uL Normal 1.00-4.00 [facility] Comment on above: Order Comment: Speci men Type: BLOOD SPECIMEN Ordering Facility: [facility] Address: [address] [place] [address] Performed By: #### 5 0190-8, 2275-4 #### [facility] CLIA [id number] [address] [place] [address] [place] Lymphocytes/100 WBC (Bld) 22.0 % Normal [facility] Comment on above: Order Comment: Speci men Type: BLOOD SPECIMEN Ordering Facility: [facility] Address: [address] [place], [place] [id number] Performed By: #### 5 0190-8, 2276-02 #### [facility] CLIA [id number] [address] [place] [address] [place] MCH (RBC) [Entitic mass] 28.1 pg Normal 26.0-34.0 [facility] Comment on above: Order Comment: Speci men Type: BLOOD SPECIMEN Ordering Facility: [facility] Address: [address] [place], [place] [address] Performed By: #### 5 0190-8, 2276-02 #### [facility] CLIA [id number] [address] [place] [address] [place] MCHC (RBC) [Mass/Vol] 32.2 g/dL Normal 30.5-36.0 [facility] Comment on above: Order Comment: Speci men Type: BLOOD SPECIMEN Ordering Facility: [facility] Address: [address] [place], [place] [address] Performed By: #### 5 0190-8, 2276-02 #### [facility] CLIA [id number] [address] [place] [address] [place] MCV (RBC) [Entitic vol] 87.2 fL Normal 80.0-100.0 [facility] Comment on above: Order Comment: Speci men Type: BLOOD SPECIMEN Ordering Facility: [facility] Address: [address] [place] [address] Performed By: #### 5 0190-8, 2276-02 #### [facility] CLIA [id number] [address] [place] [address] [place] Monocytes (Bld) [#/Vol] 0.28 10*3/uL Normal <0.87 [facility] Comment on above: Order Comment: Speci men Type: BLOOD SPECIMEN Ordering Facility: [facility] Address: [address] Performed By: #### 5 0190-8, 2275- #### [facility] CLIA [id number] [address] [place] [address] [place] Monocytes/100 WBC (Bld) 5.0 % Normal [facility] Comment on above: Order Comment: Speci men Type: BLOOD SPECIMEN Ordering Facility: [facility] Address: [address] Performed By: #### 5 0190-8, 2275- #### [facility] CLIA [id number] [address] [place] [address] [place] Neutrophils (Bld) [#/Vol] 3.92 10*3/uL Normal 1.45-7.50 [facility] Comment on above: Order Comment: Speci men Type: BLOOD SPECIMEN Ordering Facility: [facility] Address: [address] Performed By: #### 5 0190-8, 2276-02 #### [facility] CLIA [id number] [address] [place] [address] [place] Neutrophils/100 WBC (Bld) 69.5 % Normal [facility] Comment on above: Order Comment: Speci men Type: BLOOD SPECIMEN Ordering Facility: [facility] Address: [address] [place] [address] Performed By: #### 5 0190-8, 2275- #### [facility] CLIA [id number] [address] [place] [address] [place] Nucleated RBC (Bld) [#/Vol] 10*3/uL Normal <0.01 [facility] Comment on above: Order Comment: Speci men Type: BLOOD SPECIMEN Ordering Facility: [facility] Address: [address] [place] [address] Performed By: #### 5 0190-8, 2275-4 #### [facility] CLIA [id number] [address] [place] [address] [place] Nucleated RBC/100 WBC (Bld) [Ratio] 0.0 /100 WBC Normal [facility] Comment on above: Order Comment: Speci men Type: BLOOD SPECIMEN Ordering Facility: [facility] Address: [address] Performed By: #### 5 0190-8, 2275-4 #### [facility] CLIA [id number] [address] [place] [address] [place] Platelet mean volume (Bld) [Entitic vol] 9.0 fL Normal 9.0-12.7 [facility] Comment on above: Order Comment: Speci men Type: BLOOD SPECIMEN Ordering Facility: [facility] Address: [address] Performed By: #### 5 0190-8, 2275-4 #### [facility] CLIA [id number] [address] [place] [address] [place] Platelets (Bld) [#/Vol] 157 10*3/uL Normal 150-400 [facility] Comment on above: Order Comment: Speci men Type: BLOOD SPECIMEN Ordering Facility: [facility] Address: [address] [place] [address] Performed By: #### 5 0190-8, 2275-4 #### [facility] CLIA [id number] [address] [place] [address] [place] RBC (Bld) [#/Vol] 3.74 10*6/uL Low 3.90-5.20 [facility] Comment on above: Order Comment: Speci men Type: BLOOD SPECIMEN Ordering Facility: [facility] Address: [address] [place], [place] [address] Performed By: #### 5 0190-8, 6-4 #### [facility] CLIA [id number] [address] [facility] [id number] [place] [address] [place] WBC (Bld) [#/Vol] 5.64 10*3/uL Normal 3.70-11.00 [facility] Comment on above: Order Comment: Speci men Type: BLOOD SPECIMEN Ordering Facility: [facility] Address: [address] [place] [address] Performed By: #### 5 0190-8, 2276-4 #### [facility] CLIA [id number] [address] [facility] [address] [place] CNOVSPon 12-12-2022 CNOVSP Visit (SP) Office ( [facility]) ANH TEJEDA ([id number]) 1950 F Date Time Provider Department 12/12/22 3:00 PM DAKSHA BRIDGES During your visit today, we recorded the following information about you: Temperature Pulse Respiration Blood pressure 97.4 degrees 69/minute 16/minute 170/75 Weight Height 98 kg 1.58 m Daksha Bridges PA-C 12/12/2022 2:59 PM Signed PATIENT NAME: Anh Tejeda CLINIC NO.: [id number] ATTENDING PHYSICIAN: Delores Walker MD DATE OF [...] 8.7 Pr (more content not included)... Normal [facility] Comprehensive metabolic 2000 panelon 12-12-2022 Albumin [Mass/Vol] 4.4 g/dL Normal 3.9-4.9 [facility] Comment on above: Order Comment: Speci men Type: BLOOD SPECIMEN Ordering Facility: [facility] Address: [address] [place] [address] Performed By: #### 5 0190-8, 2275- #### [facility] CLIA [id number] [address] [place] [address] [place] ALP [Catalytic activity/Vol] 142 U/L High 34-123 [facility] Comment on above: Order Comment: Speci men Type: BLOOD SPECIMEN Ordering Facility: [facility] Address: [address] [place], [place] [address] Performed By: #### 5 0190-8, 2275- #### [facility] CLIA [id number] [address] [place] [address] [place] ALT [Catalytic activity/Vol] 27 U/L Normal 7-38 [facility] Comment on above: Order Comment: Speci men Type: BLOOD SPECIMEN Ordering Facility: [facility] Address: [address] [place], [place] [address] Performed By: #### 5 0190-8, 2275- #### [facility] CLIA [id number] [address] [place] [address] [place] Anion gap [Moles/Vol] 13 mmol/L Normal 9-18 [facility] Comment on above: Order Comment: Speci men Type: BLOOD SPECIMEN Ordering Facility: [facility] Address: [address] [place], [place] [address] Performed By: #### 5 0190-8, 2276-02 #### [facility] CLIA [id number] [address] [place] [address] [place] AST [Catalytic activity/Vol] 33 U/L Normal 13-35 [facility] Comment on above: Order Comment: Speci men Type: BLOOD SPECIMEN Ordering Facility: [facility] Address: [address] [place], [place] [address] Performed By: #### 5 0190-8, 2275- #### [facility] CLIA [id number] [address] [id number] [address] [place] Bilirubin [Mass/Vol] 0.3 mg/dL Normal 0.2-1.3 [facility] Comment on above: Order Comment: Speci men Type: BLOOD SPECIMEN Ordering Facility: [facility] Address: [address] [place] [address] Performed By: #### 5 0190-8, 2275-4 #### [facility] CLIA [id number] [address] [place] [address] [place] Calcium [Mass/Vol] 8.7 mg/dL Normal 8.5-10.2 [facility] Comment on above: Order Comment: Speci men Type: BLOOD SPECIMEN Ordering Facility: [facility] Address: [address] [place] [address] Performed By: #### 5 0190-8, 2275- #### [facility] CLIA [id number] [address] [place] [address] [place] Chloride [Moles/Vol] 101 mmol/L Normal 97-105 [facility] Comment on above: Order Comment: Speci men Type: BLOOD SPECIMEN Ordering Facility: [facility] Address: [address] [place], [place] [address] Performed By: #### 5 0190-8, 2276-02 #### [facility] CLIA [id number] [address] [place] [address] [place] CO2 [Moles/Vol] 27 mmol/L Normal 22-30 [facility] Comment on above: Order Comment: Speci men Type: BLOOD SPECIMEN Ordering Facility: [facility] Address: [address] [place], [place] [id number] Performed By: #### 5 0190-8, 2275- #### [facility] CLIA [id number] [address] [place] [address] [place] Creatinine [Mass/Vol] 1.24 mg/dL High 0.58-0.96 [facility] Comment on above: Order Comment: Patricia tarango Type: BLOOD SPECIMEN Ordering Facility: [facility] Address: [address] [id number] Performed By: #### 5 0190-8, 6-4 #### [facility] CLIA [id number] [address] [place] [address] [place] ESTIMATED GLOMERULAR FILTRATION RATE 46 mL/min/1.73m??? Low >=60 [facility] Comment on above: Order Comment: Patricia tarango Type: BLOOD SPECIMEN Ordering Facility: [facility] Address: [address] [address] Result Comment: Maru mated Glomerular Filtration Rate [...] Performed By: #### 5 0190-8, 6-4 #### [facility] CLIA [id number] [address] [place] [address] [place] Glucose [Mass/Vol] 226 mg/dL High 74-99 [facility] Comment on above: Order Comment: Patricia tarango Type: BLOOD SPECIMEN Ordering Facility: [facility] Address: [address] [place] [address] Result Comment: The [place] [employer] (ADA) provides guidance for cutoff [...] Standards of Medical Care in Diabetes 2016, [place] [employer]. Diabetes Care. 2016.39(Suppl 1). Performed By: #### 5 0190-8, 2275-4 #### [facility] CLIA [id number] [address] [place] [address] [place] Potassium [Moles/Vol] 3.6 mmol/L Low 3.7-5.1 [facility] Comment on above: Order Comment: Speci men Type: BLOOD SPECIMEN Ordering Facility: [facility] Address: [address] [address] Performed By: #### 5 0190-8, 2275-4 #### [facility] CLIA [id number] [address] [place] [address] [place] Protein [Mass/Vol] 6.9 g/dL Normal 6.3-8.0 [facility] Comment on above: Order Comment: Speci men Type: BLOOD SPECIMEN Ordering Facility: [facility] Address: [address] [address] Performed By: #### 5 0190-8, 2275-4 #### [facility] CLIA [id number] [address] [place] [address] [place] Sodium [Moles/Vol] 141 mmol/L Normal 136-144 [facility] Comment on above: Order Comment: Speci men Type: BLOOD SPECIMEN Ordering Facility: [facility] Address: [address] Performed By: #### 5 0190-8, 2275-4 #### [facility] CLIA [id number] [address] [place] [address] [place] Urea nitrogen [Mass/Vol] 41 mg/dL High 7-21 [facility] Comment on above: Order Comment: Speci men Type: BLOOD SPECIMEN Ordering Facility: [facility] Address: [address] Performed By: #### 5 0190-8, 2275- #### [facility] CLIA [id number] [address] [id number] [place] Ferritin SerPl-mCncon 2022 Ferritin [Mass/Vol] 184.0 ng/mL Normal 14.7-205.1 [facility] Comment on above: Order Comment: Speci men Type: BLOOD SPECIMEN Ordering Facility: [facility] Address: [address] Performed By: #### 5 0190-8, 2275-4 #### [facility] CLIA [id number] [address] [place] [address] [place] Iron and Iron binding capaci ty panelon 12-12-2022 Iron [Mass/Vol] 60 ug/dL Normal 41-186 [facility] Comment on above: Order Comment: Speci men Type: BLOOD SPECIMEN Ordering Facility: [facility] Address: [address] Performed By: #### 5 0190-8, 2275- #### [facility] CLIA [id number] [address] [place] [address] [place] Iron binding capacity [Mass/Vol] 368 ug/dL Normal 232-386 [facility] Comment on above: Order Comment: Speci men Type: BLOOD SPECIMEN Ordering Facility: [facility] Address: [address] Performed By: #### 5 0190-8, 2275- #### [facility] CLIA [id number] [address] [id number] [place] Iron/TIBC [Molar ratio] 16.3 % Normal 15.0-57.0 [facility] Comment on above: Order Comment: Speci men Type: BLOOD SPECIMEN Ordering Facility: [facility] Address: [address] Performed By: #### 5 0190-8, 2275-4 #### [facility] CLIA [id number] [address] [place], [place] [id number] [facility] Afshin 10-31-2022 CNPN Telephone (EDELAIDANA) ANH TEJEDA ([id number]) 1950 F Date Time Provider Department 10/31/22 [...] Status:Closed by KARLIE CAR on 11/24/22 Normal [facility] CBC W Auto Differential pane l (Bld)on 10-01-2022 Basophils (Bld) [#/Vol] <0.11 k/uL [facility] Basophils/100 WBC (Bld) 0.4 % [facility] Differential cell count method Nom (Bld) Auto [facility] Eosinophils (Bld) [#/Vol] 0.12 10*3/uL <0.46 k/uL [facility] Eosinophils/100 WBC (Bld) 2.2 % [facility] Erythrocyte distribution width (RBC) [Ratio] 16.9 % High 11.5 - 15.0 % [facility] Hematocrit (Bld) [Volume fraction] 27.7 % Low 36.0 - 46.0 % [facility] Hemoglobin (Bld) [Mass/Vol] 8.5 g/dL Low 11.5 - 15.5 g/dL [facility] Immature granulocytes (Bld) [#/Vol] <0.10 k/uL [facility] Immature granulocytes/100 WBC (Bld) 0.2 % [facility] Lymphocytes (Bld) [#/Vol] 1.07 10*3/uL 1.00 - 4.00 k/uL [facility] Lymphocytes/100 WBC (Bld) 19.6 % [facility] MCH (RBC) [Entitic mass] 25.3 pg Low 26.0 - 34.0 pg [facility] MCHC (RBC) [Mass/Vol] 30.7 g/dL 30.5 - 36.0 g/dL [facility] MCV (RBC) [Entitic vol] 82.4 fL 80.0 - 100.0 fL [facility] Monocytes (Bld) [#/Vol] 0.25 10*3/uL <0.87 k/uL [facility] Monocytes/100 WBC (Bld) 4.6 % [facility] Neutrophils (Bld) [#/Vol] 3.99 10*3/uL 1.45 - 7.50 k/uL [facility] Neutrophils/100 WBC (Bld) 73.0 % [facility] Nucleated RBC (Bld) [#/Vol] <0.01 k/uL [facility] Nucleated RBC/100 WBC (Bld) [Ratio] 0.0 /100 WBC [facility] Platelet mean volume (Bld) [Entitic vol] 9.4 fL 9.0 - 12.7 fL [facility] Platelets (Bld) [#/Vol] 170 10*3/uL 150 - 400 k/uL [facility] RBC (Bld) [#/Vol] 3.36 10*6/uL Low 3.90 - 5.20 m/uL [facility] WBC (Bld) [#/Vol] 5.46 10*3/uL 3.70 - 11.00 k/uL [facility] Comprehensive metabolic 2000 panelon 10-01-2022 Albumin [Mass/Vol] 4.3 g/dL 3.9 - 4.9 g/dL [facility] ALP [Catalytic activity/Vol] 120 U/L 34 - 123 U/L [facility] ALT [Catalytic activity/Vol] 20 U/L 7 - 38 U/L [facility] Anion gap [Moles/Vol] 12 mmol/L 9 - 18 mmol/L [facility] AST [Catalytic activity/Vol] 28 U/L 13 - 35 U/L [facility] Bilirubin [Mass/Vol] 0.2 mg/dL 0.2 - 1 .3 mg/dL [facility] Calcium [Mass/Vol] 8.8 mg/dL 8.5 - 10. 2 mg/dL [facility] Chloride [Moles/Vol] 109 mmol/L High 97 - 10 5 mmol/L [facility] CO2 [Moles/Vol] 27 mmol/L 22 - 30 mmol/L [facility] Creatinine [Mass/Vol] 1.34 mg/dL High 0.58 - 0.96 mg/dL [facility] Estimated Glomerular Filtration Rate 42 mL/min/1.73m Low >=60 mL/min/1.7 3m [facility] Glucose [Mass/Vol] 191 mg/dL High 74 - 99 mg/dL [facility] Potassium [Moles/Vol] 3.7 mmol/L 3.7 - 5.1 mmol/L [facility] Protein [Mass/Vol] 6.8 g/dL 6.3 - 8.0 g/dL [facility] Sodium [Moles/Vol] 148 mmol/L High 136 - 144 mmol/L [facility] Urea nitrogen [Mass/Vol] 35 mg/dL High 7 - 21 mg/dL [facility] LD LACTATE DEHYDROon 022 LDH [Catalytic activity/Vol] 163 U/L 135 - 214 U/L [facility] RETIC COUNTon 10-01-2022 Reticulocytes (Bld) [#/Vol] 0.31147 10*3/uL 0.018 - 0.100 M/uL [facility] Reticulocytes (Bld) [#/Vol]o n 10-01-2022 Reticulocytes/100 RBC (Bld) 2.8 % High 0.4 - 2.0 % [facility] HEMATOLOGYOrdered By: SYSTEM SYSTEM on 09-19-2022 Basophils/100 WBC (Bld) 0.3 % Normal 0.0 - 2.0 % [facility] Basophils/Leukocytes Auto (Bld) [Pure # fraction] 0.0 E9/L Normal 0.0 - 0.2 E9/L [facility] Eosinophils/100 WBC (Bld) 2.3 % Normal 0.0 - 8.0 % [facility] Eosinophils/Leukocytes Auto (Bld) [Pure # fraction] 0.1 E9/L Normal 0.0 - 0.5 E9/L [facility] Lymphocytes/100 WBC (Bld) 21.9 % Normal 14.0 - 50.0 % [facility] Lymphocytes/Leukocytes Auto (Bld) [Pure # fraction] [...] (Bld) [Mass/Vol] 146.0 pg/mL Normal <=900.0 [facility] Comment on above: Performed By: #### B CENTRIFUGAL CASTING MACHINE TENDER #### [facility] [address] [place] [address] Dr. Anamika Varghese CBC AUTO DIFFon 09-09-2022 BASO # 0.0 103/ul Normal 0.0-0.1 [facility] Comment on above: Performed By: #### C BC #### [facility] [address] [place] [address] Dr. Anamika Varghese Basophils/100 WBC (Bld) 0.4 % Normal 0.2-2.0 [facility] Comment on above: Performed By: #### C BC #### [facility] [address] [place] [address] Dr. Anamika Varghese EO # 0.2 103/ul Normal 0.0-0.7 [facility] Comment on above: Performed By: #### C BC #### [facility] [address] [place] [address] Dr. Anamika Varghese Eosinophils/100 WBC (Bld) 3.6 % Normal 0.9-7.0 [facility] Comment on above: Performed By: #### C BC #### [facility] [address] [place] [address] Dr. Anamika Varghese Erythrocyte distribution width (RBC) [Ratio] 16.4 % Critically high 11.0-15.0 [facility] Comment on above: Performed By: #### C BC #### [facility] [address] [place] [address] Dr. Anamika Varghese Hematocrit (Bld) [Volume fraction] 28.9 % Critically low 36.0-48.0 [facility] Comment on above: Performed By: #### C BC #### [facility] [address] [place] [address] Dr. Anamika Varghese Hemoglobin (Bld) [Mass/Vol] 9.0 g/dL Critically low 12.0-16.0 [facility] Comment on above: Performed By: #### C BC #### [facility] [address] [place] [address] Dr. Anamika Varghese IG # 0.02 10e3/ul Normal 0.00-0.03 [facility] Comment on above: Performed By: #### C BC #### [facility] [address] [place] [address] Dr. Anamika Varghese IG % 0.3 % Normal 0.0-0.5 [facility] Comment on above: Performed By: #### C BC #### [facility] [address] [place] [address] Dr. Anamika Varghese LYMPH # 1.8 103/ul Normal 1.2-3.8 [facility] Comment on above: Performed By: #### C BC #### [facility] [address] [place] [address] Dr. Anamika Varghese Lymphocytes/100 WBC (Bld) 26.1 % Normal 20.5-60.0 [facility] Comment on above: Performed By: #### C BC #### [facility] [address] [place] [address] Dr. Anamika Varghese MANUAL DIFF REQ NO Normal [facility] Comment on above: Performed By: #### C BC #### [facility] [address] [place] [address] Dr. Anamika Varghese MCH (RBC) [Entitic mass] 25.8 pg Critically low 26.7-34.0 [facility] Comment on above: Performed By: #### C BC #### [facility] [address] [place] [address] Dr. Anamika Varghese MCHC (RBC) [Mass/Vol] 31.1 g/dL Normal 29.9-35.2 [facility] Comment on above: Performed By: #### C BC #### [facility] [address] [place] [address] Dr. Anamika Varghese MCV (RBC) [Entitic vol] 82.8 fL Normal 81.0-99.0 [facility] Comment on above: Performed By: #### C BC #### [facility] [address] [place] [address] Dr. Anamika Varghese MONO # 0.3 103/ul Normal 0.3-0.8 [facility] Comment on above: Performed By: #### C BC #### [facility] [address] [place] [address] Dr. Anamika Varghese Monocytes/100 WBC (Bld) 5.0 % Normal 1.7-12.0 [facility] Comment on above: Performed By: #### C BC #### [facility] [address] [place] [address] Dr. Anamika Varghese NEUT # 4.4 103/ul Normal 1.4-6.5 [facility] Comment on above: Performed By: #### C BC #### [facility] [address] [place] [address] Dr. Anamika Varghese Neutrophils/100 WBC (Bld) 64.6 % Normal 43.0-75.0 [facility] Comment on above: Performed By: #### C BC #### [facility] [address] [place] [address] Dr. Anamika Varghese Platelet mean volume (Bld) [Entitic vol] 8.7 fL Critically low 9.5-13.5 [facility] Comment on above: Performed By: #### C BC #### [facility] [address] [place] [address] Dr. Anamika Varghese PLT 188 103/ul Normal 150-450 [facility] Comment on above: Performed By: #### C BC #### [facility] [address] [place] [address] Dr. Anamika Varghese RBC 3.49 106/ul Critically low 4.20-5.40 [facility] Comment on above: Performed By: #### C BC #### [facility] [address] [place] [address] Dr. Anamika Varghese WBC 6.7 103/ul Normal 4.0-11.0 [facility] Comment on above: Performed By: #### C BC #### [facility] [address] [place] [address] Dr. Anamika Varghese GLYCOHEMOGLOBIN A1Con 2021 ADA RECOMMENDATION SEE BELOW Normal [facility] Comment on above: Result Comment: ADA RECOMMENDED LIMIT 4.0 - 6.0 ADA THERAPEUTIC TARGET < 7.0 ACTION SUGGESTED > 7.0 Performed By: #### F ETIBC, FERR, B12FOL #### [facility] [address] [place] [address] Dr. Anamika Varghese Glucose [Mass/Vol] 166 mg/dL Normal [facility] Comment on above: Performed By: #### F ETIBC, FERR, B12FOL #### [facility] [address] [place] [address] Dr. Anamika Varghese HbA1c (Bld) [Mass fraction] 7.4 % Critically high 4.5-6.2 [facility] Comment on above: Performed By: #### F ETIBC, FERR, B12FOL #### [facility] [address] [place] [address] Dr. Anamika Varghese LIPID PROFILEon 09-09-2022 CHOL-HDL RATIO NORM SEE BELOW Normal [facility] Comment on above: Result Comment: 3.3 - 4.4 LOW RISK 4.4 - 7.1 AVERAGE RISK 7.1 - 11.0 MODERATE RISK >11.0 HIGH RISK Performed By: #### L IPID, CMP #### [facility] [address] [place] [address] Dr. Anamika Varghese Cholesterol [Mass/Vol] 118 mg/dL Normal <=200 [facility] Comment on above: Performed By: #### L IPID, CMP #### [facility] [address] [place] [address] Dr. Anamika Varghese Cholesterol in HDL [Mass/Vol] 41 mg/dL Normal 40-60 [facility] Comment on above: Performed By: #### L IPID, CMP #### [facility] [address] [place] [address] Dr. Anamika Varghese Cholesterol in LDL [Mass/Vol] 60.4 mg/dL Normal [facility] Comment on above: Performed By: #### L IPID, CMP #### [facility] [address] [place] [address] Dr. Anamika Varghese Cholesterol.total/Chol esterol in HDL [Mass ratio] 2.9 {ratio} Normal [facility] Comment on above: Performed By: #### L IPID, CMP #### [facility] [address] [address] [address] Anamika Varghese HDL NORMAL > or = 60 mg/dl - LO W CARDIOVASCULAR RISK <40 mg/dl - HIGH CARDIOVASCULAR RISK Normal [facility] Comment on above: Performed By: #### L IPID, CMP #### [facility] [address] [address] [address] Anamika Varghese LDL CALC NORMAL SEE BELOW Normal [facility] Comment on above: Result Comment: <100 mg/dl OPTIMAL 100 - 129 mg/dl NEAR OR ABOVE OPTIMAL 130 - 159 mg/dl BORDERLINE HIGH 160 - 189 mg/dl HIGH >190 mg/dl VERY HIGH Performed By: #### L IPID, CMP #### [facility] [address] [address] [address] Anamika Varghese Triglyceride [Mass/Vol] 83 mg/dL Normal <=150 [facility] Comment on above: Performed By: #### L IPID, CMP #### [facility] [address] [address] [address] Anamika Varghese VLDL CALC 16.6 mg/dL Normal [facility] Comment on above: Performed By: #### L IPID, CMP #### [facility] [address] [place] [address] Dr. Anamika Varghese MICROALB CREAT RATIO RANDOMo n 09-09-2022 mALB <1.3 Normal <=30.0 [facility] Comment on above: Performed By: #### F ETIBC, FERR, B12FOL #### [facility] [address] [address] [address] Anamika Varghese MALB CR RATIO 22.0 mg/g Normal 0.0-29.9 [facility] Comment on above: Performed By: #### F ETIBC, FERR, B12FOL #### [facility] [address] [address] [address] Anamika Varghese MALB CR RATIO RANGE SEE BELOW Normal [facility] Comment on above: Result Comment: NO M ICROALBUMINURIA 0-29 MG/G CLINICAL MICROALBUMINURIA 30-300 MG/G MACROALBUMINURIA >300 MG/G Performed By: #### F ETIJENNIFER COTTON, B12FOL #### [facility] [address] [place] [address] Dr. Anamika Varghese URINE CREAT 59.04 mg/dL Normal 20.00-300. 00 [facility] Comment on above: Performed By: #### F ETIJENNIFER COTTON, B12FOL #### [facility] [address] [place] [address] Dr. Anamika Varghese PROF 14(COMP METB)on 022 Albumin [Mass/Vol] 3.6 g/dL Normal 3.4-5.0 [facility] Comment on above: Performed By: #### L IPID, CMP #### [facility] [address] [place] [address] Dr. Anamika Varghese Albumin/Globulin [Mass ratio] 1.0 {ratio} Normal [facility] Comment on above: Performed By: #### L IPID, CMP #### [facility] [address] [place] [address] Dr. Anamika Varghese ALP [Catalytic activity/Vol] 128 U/L Critically high 46-116 [facility] Comment on above: Performed By: #### L IPID, CMP #### [facility] [address] [place] [address] Dr. Anamika Varghese ALT [Catalytic activity/Vol] 30 U/L Normal 14-59 [facility] Comment on above: Performed By: #### L IPID, CMP #### [facility] [address] [place] [address] Dr. Anamika Varghese Anion gap [Moles/Vol] 14.9 mmol/L Normal [facility] Comment on above: Performed By: #### L IPID, CMP #### [facility] [address] [place] [address] Dr. Anamika Varghese AST [Catalytic activity/Vol] 23 U/L Normal 15-37 [facility] Comment on above: Performed By: #### L IPID, CMP #### [facility] [address] [address] [address] Anamika Varghese Bilirubin [Mass/Vol] 0.3 mg/dL Normal 0.2-1.0 [facility] Comment on above: Performed By: #### L IPID, CMP #### [facility] [address] [address] [address] Anamika Varghese Calcium [Mass/Vol] 8.6 mg/dL Normal 8.5-10.1 [facility] Comment on above: Performed By: #### L IPID, CMP #### [facility] [address] [address] [address] Anamika Varghese Chloride [Moles/Vol] 105 mmol/L Normal 98-107 [facility] Comment on above: Performed By: #### L IPID, CMP #### [facility] [address] [place] [address] Dr. Anamika Varghese CO2 [Moles/Vol] 28.1 mmol/L Normal 21.0-32.0 [facility] Comment on above: Performed By: #### L IPID, CMP #### [facility] [address] [address] [address] Anamika Varghese Creatinine [Mass/Vol] 1.58 mg/dL Critically high 0.55-1.02 [facility] Comment on above: Performed By: #### L IPID, CMP #### [facility] [address] [address] [address] Anamika Varghese EGFR-AF EQUATORIAL GUINEAN 39 mL/min/1.73m2 Critically low >=60 [facility] Comment on above: Performed By: #### L IPID, CMP #### [facility] [address] [address] [address] Anamika Varghese EGFR-NON AF EQUATORIAL GUINEAN 32 mL/min/1.73m2 Critically low >=60 [facility] Comment on above: Performed By: #### L IPID, CMP #### [facility] [address] [address] [address] Anamika Varghese Globulin (S) [Mass/Vol] 3.6 g/dL Normal [facility] Comment on above: Performed By: #### L IPID, CMP #### [facility] [address] [address] [address] Anamika Varghese Glucose [Mass/Vol] 130 mg/dL Critically high 74-106 [facility] Comment on above: Performed By: #### L IPID, CMP #### [facility] [address] [place] [address] Dr. Anamika Varghese Potassium [Moles/Vol] 4.0 mmol/L Normal 3.5-5.1 [facility] Comment on above: Performed By: #### L IPID, CMP #### [facility] [address] [place] [address] Dr. Anamika Varghese Protein [Mass/Vol] 7.2 g/dL Normal 6.4-8.2 [facility] Comment on above: Performed By: #### L IPID, CMP #### [facility] [address] [place] [address] Dr. Anamika Varghese Sodium [Moles/Vol] 144 mmol/L Normal 136-145 [facility] Comment on above: Performed By: #### L IPID, CMP #### [facility] [address] [place] [address] Dr. Anamika Varghese Urea nitrogen [Mass/Vol] 53.0 mg/dL Critically high 7.0-18.0 [facility] Comment on above: Performed By: #### L IPID, CMP #### [facility] [address] [place] [address] Dr. Anamika Varghese Urea nitrogen/Creatinine [Mass ratio] 33.5 mg/mg Normal [facility] Comment on above: Performed By: #### L IPID, CMP #### [facility] [address] [place] [address] Dr. Anamika Varghese Creatinine and Glomerular fi ltration rate.predicted panel (S/P/Bld)Ordered By: Anand Yusuf on 07-24-2022 Creatinine [Mass/Vol] 1.41 mg/dL 0.44-1.03 [facility] Estimated glomerular filtrat ion rate (GFR) non- AmericanOrdered By: Anand Yusuf on 07-24-2022 GFR/1.73 sq M.predicted among non-blacks MDRD (S/P/Bld) [Vol rate/Area] 37 mL/Min [facility] No Panel InformationOrdered By: Anand Yusuf on 07-24-2022 Estimated GFR () 44 mL/Min [facility] Comment on above: GFR estimated refere nce range: According to KDOQI guidelines, <60 ml/min/1.73m2 is sufficient to diagnose a patient with chronic kidney disease. Pharmacy Creatinine Clearance (Chem N/A [facility] Serum or plasma anion gap de terminationOrdered By: Anand Yusuf on 07-24-2022 Anion gap [Moles/Vol] 17.5 mmol/L 6.0-15.0 [facility] Serum or plasma calcium emperatriz urement (mass/volume)Ordered By: Anand Yusuf on 07-24-2022 Calcium [Mass/Vol] 8.5 mg/dL 8.2-10.2 [facility] Serum or plasma chloride edvin surement (moles/volume)Ordered By: Anand Yusuf on 07-24-2022 Chloride [Moles/Vol] 105 mmol/L 95-114 [facility] Serum or plasma glucose emperatriz urement (mass/volume)Ordered By: Anand Yusuf on 07-24-2022 Glucose [Mass/Vol] 97 mg/dL 70-100 [facility] Comment on above: ADA recommended refe [...] on 07-24-2022 Potassium [Moles/Vol] 4.3 mmol/L 3.5-5.1 [facility] Serum or plasma sodium measu rement (moles/volume)Ordered By: Anand Yusuf on 07-24-2022 Sodium [Moles/Vol] 141 mmol/L 136-146 [facility] Serum or plasma total carbon dioxide measurement (moles/volume)Ordered By: Anand Yusuf on 07-24-2022 CO2 [Moles/Vol] 22.8 mmol/L 22.0-30.0 [facility] Serum or plasma urea nitroge n measurement (mass/volume)Ordered By: Anand Yusuf on 07-24-2022 Urea nitrogen [Mass/Vol] 37 mg/dL 9-23 [facility] Urine culture routineOrdered By: Anand Yusuf on 07-24-2022 Bacteria identified Cx Nom (U) Escherichia coli [facility] Automated erythrocytes count in urine sediment (number/area)Ordered By: Anand Yusuf on 07-22-2022 RBC Auto (Urine sed) [#/Area] 0-1 [HPF] 0-4 [facility] Automated leukocytes count i n urine sediment (number/area)Ordered By: Anand Yusuf on 07-22-2022 WBC Auto (Urine sed) [#/Area] 5-9 [HPF] 0-4 [facility] Basophils Auto (Bld) [#/Vol] Ordered By: Anand Yusuf on 07-22-2022 Basophils (Bld) [#/Vol] 0.1 10*3/uL 0.0-0.2 [facility] Basophils/100 WBC Auto (Bld) Ordered By: Anand Yusuf on 07-22-2022 Basophils/100 WBC (Bld) 0.5 % . [facility] Bilirubin Test strip Ql (U)O rdered By: Anand Yusuf on 07-22-2022 Bilirubin Ql (U) Negative Negative [facility] Blood hemoglobin measurement (mass/volume)Ordered By: Anand Yusuf on 07-22-2022 Hemoglobin (Bld) [Mass/Vol] 9.6 g/dL 11.8-15.4 [facility] Blood leukocytes automated c ount (number/volume)Ordered By: Anand Yusuf on 07-22-2022 WBC (Bld) [#/Vol] 11.6 10*3/uL 4.5-11.0 [facility] Body fluid albumin measureme nt (mass/volume)Ordered By: Anand Yusuf on 07-22-2022 Albumin (Body fld) [Mass/Vol] 3.0 g/dL 3.2-5.5 [facility] Color Auto (U)Ordered By: Primo Yusuf on 07-22-2022 Color (U) Yellow Yellow [facility] Creatinine and Glomerular fi ltration rate.predicted panel (S/P/Bld)Ordered By: Anand Yusuf on 07-22-2022 Creatinine [Mass/Vol] 1.63 mg/dL 0.44-1.03 [facility] Eosinophils Auto (Bld) [#/Vo l]Ordered By: Anand Yusuf on 07-22-2022 Eosinophils (Bld) [#/Vol] 0.1 10*3/uL 0.0-0.45 [facility] Eosinophils/100 WBC Auto (Bl d)Ordered By: Anand Yusuf on 07-22-2022 Eosinophils/100 WBC (Bld) 1.0 % . [facility] Erythrocyte distribution wid th Auto (RBC) [Ratio]Ordered By: Anand Yusuf on 07-22-2022 Erythrocyte distribution width (RBC) [Ratio] 17.0 % 11.9-15.3 [facility] Estimated glomerular filtrat ion rate (GFR) non- AmericanOrdered By: Anand Yusuf on 07-22-2022 GFR/1.73 sq M.predicted among non-blacks MDRD (S/P/Bld) [Vol rate/Area] 31 mL/Min [facility] Globulin Calc (S) [Mass/Vol] Ordered By: Anand Yusuf on 07-22-2022 Globulin (S) [Mass/Vol] 3.3 g/dL [facility] Hematocrit Auto (Bld) [Volum e fraction]Ordered By: Anand Yusuf on 07-22-2022 Hematocrit (Bld) [Volume fraction] 28.6 % 34.0-46.4 [facility] Ketones Auto test strip (U) [Mass/Vol]Ordered By: Anand Yusuf on 07-22-2022 Ketones (U) [Mass/Vol] Trace Negative [facility] - Chemistry and C hemistry - challengeOrdered By: Anand Yusuf on 09-06-2022 Magnesium [Mass/Vol] 1.4 mg/dL 1.6-2.6 [facility] Natriuretic peptide B (Bld) [Mass/Vol] 44.0 pg/mL 5-100 [facility] Laboratory - Hematology and Cell countsOrdered By: Anand Yusuf on 07-22-2022 Nucleated RBC/100 WBC (Bld) [Ratio] 0.0 % 0-0.5 [facility] - UrinalysisOrder ed By: Anand Yusuf on 07-22-2022 Hyaline casts LM Ql (Urine sed) 0-8 [LPF] 0-8 [facility] Lymphocytes Auto (Bld) [#/Vo l]Ordered By: Anand Yusuf on 07-22-2022 Lymphocytes (Bld) [#/Vol] 1.5 10*3/uL 1.00-4.8 [facility] Lymphocytes/100 WBC Auto (Bl d)Ordered By: Anand Yusuf on 07-22-2022 Lymphocytes/100 WBC (Bld) 13.0 % . [facility] MCH Auto (RBC) [Entitic mass ]Ordered By: Anand Yusuf on 07-22-2022 MCH (RBC) [Entitic mass] 27.3 pg 24.7-34.3 [facility] MCHC Auto (RBC) [Mass/Vol]Or dered By: Anand Yusuf on 07-22-2022 MCHC (RBC) [Mass/Vol] 33.5 g/dL 32.0-35.0 [facility] MCV Auto (RBC) [Entitic vol] Ordered By: Anand Yusuf on 07-22-2022 MCV (RBC) [Entitic vol] 81.3 fL 80-100 [facility] Monocytes Auto (Bld) [#/Vol] Ordered By: Anand Yusuf on 07-22-2022 Monocytes (Bld) [#/Vol] 0.5 10*3/uL 0.0-0.8 [facility] Monocytes/100 WBC Auto (Bld) Ordered By: Anand Yusuf on 07-22-2022 Monocytes/100 WBC (Bld) 4.1 % . [facility] Neutrophils Auto (Bld) [#/Vo l]Ordered By: Anand Yusuf on 09-06-2022 Neutrophils (Bld) [#/Vol] 9.5 10*3/uL 1.8-7.7 [facility] Neutrophils/100 WBC Auto (Bl d)Ordered By: Anand Yusuf on 07-22-2022 Neutrophils/100 WBC (Bld) 81.4 % . [facility] Nitrite Test strip Ql (U)Ord ered By: Anand Yusuf on 07-22-2022 Nitrite Ql (U) Negative Negative [facility] No Panel InformationOrdered By: Anand Yusuf on 07-22-2022 Estimated GFR () 37 mL/Min [facility] Comment on above: GFR estimated refere nce range: According to KDOQI guidelines, <60 ml/min/1.73m2 is sufficient to diagnose a patient with chronic kidney disease. Pharmacy Creatinine Clearance (Chem 34.96 [facility] Platelet mean volume Auto (B ld) [Entitic vol]Ordered By: Anand Yusuf on 07-22-2022 Platelet mean volume (Bld) [Entitic vol] 7.3 fL 6.3-10.7 [facility] Platelets Auto (Bld) [#/Vol] Ordered By: Anand Yusuf on 07-22-2022 Platelets (Bld) [#/Vol] 253 10*3/uL 150-450 [facility] Protein Auto test strip (U) [Mass/Vol]Ordered By: Anand Yusuf on 07-22-2022 Protein (U) [Mass/Vol] Negative Negative [facility] Protein [Mass/volume] in Ser um or PlasmaOrdered By: Anand Yusuf on 07-22-2022 Protein [Mass/Vol] 6.3 g/dL 6.1-7.9 [facility] RBC Auto (Bld) [#/Vol]Ordere d By: Anand Yusuf on 07-22-2022 RBC (Bld) [#/Vol] 3.51 10*6/uL 3.60-5.00 [facility] Serum or plasma alanine stubbs otransferase measurement without P-5'-P (enzymatic activiOrdered By: Anand Yusuf on 07-22-2022 ALT No additional P-5'-P [Catalytic activity/Vol] 29 U/L 10-60 [facility] Serum or plasma albumin/glob ulin mass ratioOrdered By: Anand Yusuf on 07-22-2022 Albumin/Globulin [Mass ratio] 0.9 {ratio} [facility] Serum or plasma alkaline lorie sphatase measurement (enzymatic activity/volume)Ordered By: Anand Yusuf on 07-22-2022 ALP [Catalytic activity/Vol] 99 U/L 32-92 [facility] Serum or plasma anion gap de terminationOrdered By: Anand Yusuf on 07-22-2022 Anion gap [Moles/Vol] 14.3 mmol/L 6.0-15.0 [facility] Serum or plasma aspartate am inotransferase measurement (enzymatic activity/volume)Ordered By: Anand Yusuf on 07-22-2022 AST [Catalytic activity/Vol] 31 U/L 10-42 [facility] Serum or plasma calcium emperatriz urement (mass/volume)Ordered By: Anand Yusuf on 07-22-2022 Calcium [Mass/Vol] 9.0 mg/dL 8.2-10.2 [facility] Serum or plasma chloride edvin surement (moles/volume)Ordered By: Anand Yusuf on 07-22-2022 Chloride [Moles/Vol] 107 mmol/L 95-114 [facility] Serum or plasma glucose emperatriz urement (mass/volume)Ordered By: Anand Yusuf on 07-22-2022 Glucose [Mass/Vol] 168 mg/dL 70-100 [facility] Comment on above: ADA recommended refe [...] on 07-22-2022 Potassium [Moles/Vol] 5.4 mmol/L 3.5-5.1 [facility] Serum or plasma sodium measu rement (moles/volume)Ordered By: Anand Yusuf on 07-22-2022 Sodium [Moles/Vol] 140 mmol/L 136-146 [facility] Serum or plasma total biliru bin measurement (mass/volume)Ordered By: Anand Yusuf on 07-22-2022 Bilirubin [Mass/Vol] 0.6 mg/dL 0.3-1.2 [facility] Serum or plasma total carbon dioxide measurement (moles/volume)Ordered By: Anand Yusuf on 07-22-2022 CO2 [Moles/Vol] 24.1 mmol/L 22.0-30.0 [facility] Serum or plasma urea nitroge n measurement (mass/volume)Ordered By: Anand Yusuf on 07-22-2022 Urea nitrogen [Mass/Vol] 53 mg/dL 9- [facility] Specific gravity Auto test s trip (U) [Rel density]Ordered By: Anand Yusuf on 07-22-2022 Specific gravity (U) [Rel density] 1.019 1.001-1.03 0 [facility] Squamous epithelial cells de tection in urine sediment by light microscopyOrdered By: Anand Yusuf on 07-22-2022 Epithelial cells.squamous LM Ql (Urine sed) 1-2 [HPF] 0-2 [facility] Troponin I.cardiac [Mass/vol ume] in Serum or Plasma by High sensitivity methodOrdered By: Anand Yusuf on 07-22-2022 Troponin I.cardiac High sensitivity method [Mass/Vol] 4 pg/mL 0-15 [facility] Urine bacteria detection by automated methodOrdered By: Anand Yusuf on 07-22-2022 Bacteria Auto Ql (U) 4+ None Seen [facility] Urine clarity by refractomet ry automatedOrdered By: Anand Yusuf on 07-22-2022 Clarity Refractometry automated (U) Cloudy Clear [facility] Urine glucose measurement by automated test strip (mass/volume)Ordered By: Anand Yusuf on 07-22-2022 Glucose Auto test strip (U) [Mass/Vol] Normal mg/dL Normal [facility] Urine hemoglobin detection b y automated test stripOrdered By: Anand Yusuf on 07-22-2022 Hemoglobin Auto test strip Ql (U) Negative Negative [facility] Urine lactic acid measuremen tOrdered By: Anand Yusuf on 07-22-2022 Lactate (U) [Moles/Vol] 1.9 mmol/L 0.5-2.2 [facility] Urine leukocyte esterase det ection by automated test stripOrdered By: Anand Yusuf on 07-22-2022 Leukocyte esterase Auto test strip Ql (U) 2+ Negative [facility] Urobilinogen Auto test strip (U) [Mass/Vol]Ordered By: Anand Yusuf on 07-22-2022 Urobilinogen (U) [Mass/Vol] Normal mg/dL Normal [facility] pH Auto test strip (U)Ordere d By: Anand Yusuf on 07-22-2022 pH (U) 5.0 [pH] 5.0-9.0 [facility] FERRITINon 06-24-2022 Ferritin [Mass/Vol] 39.0 ng/mL Normal 8.0-252.0 [facility] Comment on above: Performed By: #### F ETIBC, FERR, B12FOL #### [facility] [address] [place] [address] Dr. Anamika Varghese IRON AND TIBCon 06-24-2022 % SATURATION 13.1 % Normal [facility] Comment on above: Performed By: #### F ETIBC, FERR, B12FOL #### [facility] [address] [address] [address] Anamika Varghese Iron [Mass/Vol] 52.0 ug/dL Normal 50.0-170.0 [facility] Comment on above: Performed By: #### F ETIBC, FERR, B12FOL #### [facility] [address] [address] [address] Anamika Varghese TIBC DIRECT 397.0 ug/dL Normal 250.0-450. 0 [facility] Comment on above: Performed By: #### F ETIBC, FERR, B12FOL #### [facility] [address] [place] [address] Dr. Anamika Varghese LIVER PROFILEon 06-24-2022 Albumin [Mass/Vol] 3.5 g/dL Normal 3.4-5.0 [facility] Comment on above: Performed By: #### L IVER #### [facility] [address] [place] [address] Dr. Anamika Varghese Albumin/Globulin [Mass ratio] 1.2 {ratio} Normal [facility] Comment on above: Performed By: #### L IVER #### [facility] [address] [place] [address] Dr. Anamika Varghese ALP [Catalytic activity/Vol] 117 U/L Critically high 46-116 [facility] Comment on above: Performed By: #### L IVER #### [facility] [address] [place] [address] Dr. Anamika Varghese ALT [Catalytic activity/Vol] 30 U/L Normal 14-59 [facility] Comment on above: Performed By: #### L IVER #### [facility] [address] [place] [address] Dr. Anamika Varghese AST [Catalytic activity/Vol] 25 U/L Normal 15-37 [facility] Comment on above: Performed By: #### L IVER #### [facility] [address] [place] [address] Dr. Anamika Varghese BILI, CONJUGATED 0.2 mg/dL Normal 0.0-0.2 [facility] Comment on above: Performed By: #### L IVER #### [facility] [address] [place] [address] Dr. Anamika Varghese Bilirubin [Mass/Vol] 0.4 mg/dL Normal 0.2-1.0 [facility] Comment on above: Performed By: #### L IVER #### [facility] [address] [place] [address] Dr. Anamika Varghese Globulin (S) [Mass/Vol] 3.0 g/dL Normal [facility] Comment on above: Performed By: #### L IVER #### [facility] [address] [place] [address] Dr. Anamika Varghese Protein [Mass/Vol] 6.5 g/dL Normal 6.4-8.2 [facility] Comment on above: Performed By: #### L IVER #### [facility] [address] [place] [address] Dr. Anamika Varghese RETICULOCYTEon 06-24-2022 RETIC 3.27 % Critically high 0.60-3.10 [facility] Comment on above: Performed By: #### F ETIBC, FERR, B12FOL #### [facility] [address] [address] [address] Anamika Varghese VIT B12 AND FOLATEon 022 Cobalamin (Vitamin B12) [Mass/Vol] 206.0 pg/mL Normal 193.0-986. 0 [facility] Comment on above: Performed By: #### F ETIBC, FERR, B12FOL #### [facility] [address] [address] [address] Anamika Varghese FOLATE 20.20 ng/mL Normal 8.60-58.90 [facility] Comment on above: Performed By: #### F ETIBC, FERR, B12FOL #### [facility] [address] [address] [address] Anamika Varghese Basophils Auto (Bld) [#/Vol] Ordered By: Vinay Matta on 05-21-2022 Basophils (Bld) [#/Vol] 0.0 10*3/uL 0.0-0.2 [facility] Basophils/100 WBC Auto (Bld) Ordered By: Vinay Matta on 05-21-2022 Basophils/100 WBC (Bld) 0.4 % . [facility] Blood hemoglobin measurement (mass/volume)Ordered By: Vinay Matta on 05-21-2022 Hemoglobin (Bld) [Mass/Vol] 9.7 g/dL 11.8-15.4 [facility] Blood leukocytes automated c ount (number/volume)Ordered By: Vinay Matta on 05-21-2022 WBC (Bld) [#/Vol] 3.7 10*3/uL 4.5-11.0 [facility] Body fluid albumin measureme nt (mass/volume)Ordered By: Vinay Matta on 05-21-2022 Albumin (Body fld) [Mass/Vol] 3.3 g/dL 3.2-5.5 [facility] Cholesterol [Mass/volume] in Serum or PlasmaOrdered By: Vinay Matta on 05-21-2022 Cholesterol [Mass/Vol] 122 mg/dL 140-200 [facility] Comment on above: Chol less than 200 m g/dl low risk Chol 201-239 mg/dl borderline risk Chol 240 mg/dl and greater high risk Cholesterol in LDL Calc [Mas s/Vol]Ordered By: Vinay Bunting on 05-21-2022 Cholesterol in LDL [Mass/Vol] 67 mg/dL 0-100 [facility] Comment on above: LDL ATP III CLASSIFI CATION LDL less than 100 mg/dL Optimal LDL 100-129 mg/dL Near or above optimal LDL 130-159 mg/dL Borderline high LDL 160-189 mg/dL High LDL greater than 189 mg/dL Very high Cholesterol in VLDL Calc [Ma ss/Vol]Ordered By: Vinay Bunting on 05-21-2022 Cholesterol in VLDL [Mass/Vol] 13 mg/dL [facility] Creatinine and Glomerular fi ltration rate.predicted panel (S/P/Bld)Ordered By: Vinay Bunting on 05-21-2022 Creatinine [Mass/Vol] 1.15 mg/dL 0.44-1.03 [facility] Eosinophils Auto (Bld) [#/Vo l]Ordered By: Vinay Bunting on 05-21-2022 Eosinophils (Bld) [#/Vol] 0.1 10*3/uL 0.0-0.45 [facility] Eosinophils/100 WBC Auto (Bl d)Ordered By: Vinay Bunting on 05-21-2022 Eosinophils/100 WBC (Bld) 3.1 % . [facility] Erythrocyte distribution wid th Auto (RBC) [Ratio]Ordered By: Vinay Bunting on 05-21-2022 Erythrocyte distribution width (RBC) [Ratio] 16.3 % 11.9-15.3 [facility] Erythrocyte sedimentation ra te by Photometric methodOrdered By: Vinay Bunhomer on 05-21-2022 ESR Photometric method (Bld) [Velocity] 9 mm/hr 0-29 [facility] Estimated glomerular filtrat ion rate (GFR) non- AmericanOrdered By: Vinay Bunting on 05-21-2022 GFR/1.73 sq M.predicted among non-blacks MDRD (S/P/Bld) [Vol rate/Area] 46 mL/Min [facility] Globulin Calc (S) [Mass/Vol] Ordered By: Vinay Bunting on 05-21-2022 Globulin (S) [Mass/Vol] 2.2 g/dL [facility] Glucose mean value [Mass/vol ume] in Blood Estimated from glycated hemoglobinOrdered By: Vinay Bunting on 05-21-2022 Average glucose Estimated from glycated hemoglobin (Bld) [Mass/Vol] 166 mg/dL [facility] Hematocrit Auto (Bld) [Volum e fraction]Ordered By: Vinay Bunting on 05-21-2022 Hematocrit (Bld) [Volume fraction] 29.1 % 34.0-46.4 [facility] Hemoglobin A1c percentageOrd ered By: Vinay Bunting on 05-21-2022 HbA1c (Bld) [Mass fraction] 7.4 % 4.3-5.6 [facility] Comment on above: Increased risk for d iabetes: 5.7 - 6.4 diabetes: >6.4 glycemic control for adults with diabetes: <7.0 Laboratory - Hematology and Cell countsOrdered By: Vniay Bunting on 05-21-2022 Nucleated RBC/100 WBC (Bld) [Ratio] 0.1 % 0-0.5 [facility] Lymphocytes Auto (Bld) [#/Vo l]Ordered By: Vinay Bunting on 05-21-2022 Lymphocytes (Bld) [#/Vol] 1.0 10*3/uL 1.00-4.8 [facility] Lymphocytes/100 WBC Auto (Bl d)Ordered By: Vinay Bunting on 05-21-2022 Lymphocytes/100 WBC (Bld) 26.3 % . [facility] MCH Auto (RBC) [Entitic mass ]Ordered By: Vinay Bunting on 05-21-2022 MCH (RBC) [Entitic mass] 28.6 pg 24.7-34.3 [facility] MCHC Auto (RBC) [Mass/Vol]Or dered By: Vinay Bunting on 05-21-2022 MCHC (RBC) [Mass/Vol] 33.5 g/dL 32.0-35.0 [facility] MCV Auto (RBC) [Entitic vol] Ordered By: Vinay Bunting on 05-21-2022 MCV (RBC) [Entitic vol] 85.5 fL 80-100 [facility] Monocytes Auto (Bld) [#/Vol] Ordered By: Vinay Bunting on 05-21-2022 Monocytes (Bld) [#/Vol] 0.2 10*3/uL 0.0-0.8 [facility] Monocytes/100 WBC Auto (Bld) Ordered By: Vinay Bunting on 05-21-2022 Monocytes/100 WBC (Bld) 6.4 % . [facility] Neutrophils Auto (Bld) [#/Vo l]Ordered By: Vinay Bunting on 05-21-2022 Neutrophils (Bld) [#/Vol] 2.4 10*3/uL 1.8-7.7 [facility] Neutrophils/100 WBC Auto (Bl d)Ordered By: Vinay Bunting on 05-21-2022 Neutrophils/100 WBC (Bld) 63.8 % . [facility] No Panel InformationOrdered By: Vinay Bunting on 05-21-2022 Estimated GFR () 56 mL/Min [facility] Comment on above: GFR estimated refere nce range: According to KDOQI guidelines, <60 ml/min/1.73m2 is sufficient to diagnose a patient with chronic kidney disease. Pharmacy Creatinine Clearance (Chem N/A [facility] Platelet mean volume Auto (B ld) [Entitic vol]Ordered By: Vinay Bunting on 05-21-2022 Platelet mean volume (Bld) [Entitic vol] 7.3 fL 6.3-10.7 [facility] Platelets Auto (Bld) [#/Vol] Ordered By: Vinay Bunting on 05-21-2022 Platelets (Bld) [#/Vol] 153 10*3/uL 150-450 [facility] Protein [Mass/volume] in Ser um or PlasmaOrdered By: Vinay Bunting on 05-21-2022 Protein [Mass/Vol] 5.5 g/dL 6.1-7.9 [facility] RBC Auto (Bld) [#/Vol]Ordere d By: Vinay Bunting on 05-21-2022 RBC (Bld) [#/Vol] 3.40 10*6/uL 3.60-5.00 [facility] Serum or plasma alanine stubbs otransferase measurement without P-5'-P (enzymatic activiOrdered By: Vinay Bunhomer on 05-21-2022 ALT No additional P-5'-P [Catalytic activity/Vol] 28 U/L 10-60 [facility] Serum or plasma albumin/glob ulin mass ratioOrdered By: Vinay Matta on 05-21-2022 Albumin/Globulin [Mass ratio] 1.5 {ratio} [facility] Serum or plasma alkaline lorie sphatase measurement (enzymatic activity/volume)Ordered By: Vinay Matta on 05-21-2022 ALP [Catalytic activity/Vol] 96 U/L 32-92 [facility] Serum or plasma aspartate am inotransferase measurement (enzymatic activity/volume)Ordered By: Vinay Matta on 05-21-2022 AST [Catalytic activity/Vol] 30 U/L 10-42 [facility] Serum or plasma calcium emperatriz urement (mass/volume)Ordered By: Vinay Matta on 05-21-2022 Calcium [Mass/Vol] 8.5 mg/dL 8.2-10.2 [facility] Serum or plasma chloride edvin surement (moles/volume)Ordered By: Vinay Matta on 05-21-2022 Chloride [Moles/Vol] 102 mmol/L 95-114 [facility] Serum or plasma glucose emperatriz urement (mass/volume)Ordered By: Vinay Matta on 05-21-2022 Glucose [Mass/Vol] 167 mg/dL 70-100 [facility] Comment on above: ADA recommended refe rence range Random Glucose Reference Range is dependent on time and content of last meal. Glucose of more than 200 mg/dL in a nonstressed, ambulatory subject supports the diagnosis of Diabetes Mellitus. Serum or plasma high density lipoprotein (HDL) cholesterol measurementOrdered By: Vinay Matta on 05-21-2022 Cholesterol in HDL [Mass/Vol] 41 mg/dL 35-85 [facility] Comment on above: HDL CHOL ATP-III CLA SSIFICATION Cardiovascular Risk HDL > or equal to 60 mg/dL LOW HDL < 40 mg/dL HIGH Serum or plasma potassium me asurement (moles/volume)Ordered By: Vinay Matta on 05-21-2022 Potassium [Moles/Vol] 4.5 mmol/L 3.5-5.1 [facility] Serum or plasma rheumatoid f actor measurement (units/volume)Ordered By: Vinay Matta on 05-21-2022 Rheumatoid factor Qn [IU]/mL <14.0 [facility] Comment on above: Performed at: [address] [id number] [employer] Follower: Darren Ashby PhD, Phone: [phone] Serum or plasma sodium measu rement (moles/volume)Ordered By: Vinay Matta on 05-21-2022 Sodium [Moles/Vol] 140 mmol/L 136-146 [facility] Serum or plasma total biliru bin measurement (mass/volume)Ordered By: Vinay Matta on 05-21-2022 Bilirubin [Mass/Vol] 0.5 mg/dL 0.3-1.2 [facility] Serum or plasma total carbon dioxide measurement (moles/volume)Ordered By: Vinay Matta on 05-21-2022 CO2 [Moles/Vol] 27.2 mmol/L 22.0-30.0 [facility] Serum or plasma total choles terol/high density lipoprotein (HDL) cholesterol mass ratOrdered By: Vinay Matta on 05-21-2022 Cholesterol.total/Chol esterol in HDL [Mass ratio] 3.0 {ratio} <5.0 [facility] Serum or plasma urea nitroge n measurement (mass/volume)Ordered By: Vinay Matta on 05-21-2022 Urea nitrogen [Mass/Vol] 24 mg/dL 9-23 [facility] Serum or plasma uric acid me asurement (mass/volume)Ordered By: Vinay Matta on 05-21-2022 Urate [Mass/Vol] 4.1 mg/dL 2.6-7.2 [facility] Triglyceride [Mass/volume] i n Serum or PlasmaOrdered By: Vinay Bunhomer on 05-21-2022 Triglyceride [Mass/Vol] 68 mg/dL 35-149 [facility] Comment on above: TRIG ATP III CLASSIF ICATION TRIG less than 150 mg/dL Normal TRIG 150-199 mg/dL Borderline high TRIG 200-500 mg/dL High TRIG greater than 500 mg/dL Very high Standard traceable to the Center for Disease Conrtrol and Prevention (CDC) test method. Automated basophil %on 01-31 Basophils/100 WBC (Bld) 0.4 % [facility] Automated basophil counton 0 01-31-2021 Basophils (Bld) [#/Vol] 0.0 10*3/uL 0.0-0.2 [facility] Automated blood lymphocyte c ount (number/volume)on 01-31-2021 Lymphocytes (Bld) [#/Vol] 1.3 10*3/uL 1.00-4.8 [facility] Automated blood lymphocyte c ount as percentage of total leukocyteson 01-31-2021 Lymphocytes/100 WBC (Bld) 19.5 % [facility] Automated blood monocyte cou nton 01-31-2021 Monocytes (Bld) [#/Vol] 0.3 10*3/uL 0.0-0.8 [facility] Automated blood platelet cou nt (count/volume)on 01-31-2021 Platelets (Bld) [#/Vol] 158 10*3/uL 150-450 [facility] Automated blood platelet edvin n volume measurementon 01-31-2021 Platelet mean volume (Bld) [Entitic vol] 7.2 fL 6.3-10.7 [facility] Automated eosinophil %on Eosinophils/100 WBC (Bld) 3.2 % [facility] Automated eosinophil counton 01-31-2021 Eosinophils (Bld) [#/Vol] 0.2 10*3/uL 0.0-0.45 [facility] Automated erythrocyte distri bution width ratioon 01-31-2021 Erythrocyte distribution width (RBC) [Ratio] 16.8 % 11.9-15.3 [facility] Automated erythrocyte mean c orpuscular hemoglobin (mass per erythrocyte)on 01-31-2021 MCH (RBC) [Entitic mass] 29.4 pg 24.7-34.3 [facility] Automated erythrocyte mean c orpuscular hemoglobin concentration measurement (mass/volon 01-31-2021 MCHC (RBC) [Mass/Vol] 33.9 g/dL 32.0-35.0 [facility] Automated erythrocyte mean c orpuscular volumeon 01-31-2021 MCV (RBC) [Entitic vol] 86.6 fL 80-100 [facility] Automated erythrocytes count in urine sediment (number/area)on 01-31-2021 RBC Auto (Urine sed) [#/Area] 0-1 [HPF] [facility] [facility] Automated leukocytes count i n urine sediment (number/area)on 01-31-2021 WBC Auto (Urine sed) [#/Area] 3-4 [HPF] [facility] Automated monocyte %on 01-31 Monocytes/100 WBC (Bld) 5.0 % [facility] Automated neutrophil %on Neutrophils/100 WBC (Bld) 71.9 % [facility] Automated urine color determ inationon 01-31-2021 Color (U) Yellow Yellow [facility] Blood erythrocytes automated count (number/volume)on 01-31-2021 RBC (Bld) [#/Vol] 4.01 10*6/uL 3.60-5.00 [facility] Blood hemoglobin measurement (mass/volume)on 01-31-2021 Hemoglobin (Bld) [Mass/Vol] 11.8 g/dL 11.8-15.4 [facility] Blood leukocytes automated c ount (number/volume)on 01-31-2021 WBC (Bld) [#/Vol] 6.7 10*3/uL 4.5-11.0 [facility] Blood neutrophil count by au tomated method (number/volume)on 01-31-2021 Neutrophils (Bld) [#/Vol] 4.8 10*3/uL 1.8-7.7 [facility] Body fluid albumin measureme nt (mass/volume)on 01-31-2021 Albumin (Body fld) [Mass/Vol] 3.7 g/dL 3.2-5.5 [facility] Cholesterol [Mass/volume] in Serum or Plasmaon 01-31-2021 Cholesterol [Mass/Vol] 129 mg/dL 140-200 [facility] Comment on above: Chol less than 200 m g/dl low riskChol 201-239 mg/dl borderline riskChol 240 mg/dl and greater high risk Cholesterol in LDL [Mass/vol ume] in Serum or Plasma by calculationon 01-31-2021 Cholesterol in LDL [Mass/Vol] 63 mg/dL 0-100 [facility] Comment on above: LDL ATP III CLASSIFI CATIONLDL less than 100 mg/dL OptimalLDL 100-129 mg/dL Near or above optimalLDL 130-159 mg/dL Borderline highLDL 160-189 mg/dL HighLDL greater than 189 mg/dL Very high Cholesterol in VLDL [Mass/vo lume] in Serum or Plasma by calculationon 01-31-2021 Cholesterol in VLDL [Mass/Vol] 22 mg/dL [facility] Creatinine [Mass/volume] in Urineon 01-31-2021 Creatinine (U) [Mass/Vol] 127.7 mg/dL [facility] Comment on above: No reference range e stablished Estimated glomerular filtrat ion rate (GFR) non- Americanon 01-31-2021 GFR/1.73 sq M predicted among non-blacks MDRD (S/P/Bld) [Vol rate/Area] 45 mL/min/{1.73_m2} [facility] Glucose mean value [Mass/vol ume] in Blood Estimated from glycated hemoglobinon 01-31-2021 Average glucose Estimated from glycated hemoglobin mass conc (Bld) 174 mg/dL [facility] Hematocrit [Volume Fraction] of Blood by Automated counton 01-31-2021 Hematocrit (Bld) [Volume fraction] 34.7 % 34.0-46.4 [facility] Hemoglobin A1c percentageon 01-31-2021 HbA1c (Bld) [Mass fraction] 7.7 % 4.3-5.6 [facility] Comment on above: Increased risk for d iabetes: 5.7 - 6.4diabetes: >6.4glycemic control for adults with diabetes: <7.0 Otheron 01-31-2021 GFR/1.73 sq M.predicted MDRD (S/P/Bld) [Vol rate/Area] 55 mL/min/{1.73_m2} [facility] Comment on above: GFR estimated refere nce range: According to KDOQI guidelines, <60 ml/min/1.73m2 is sufficient to diagnose a patient with chronic kidney disease. Nucleated RBC/100 WBC (Bld) [Ratio] 0.2 % 0-0.5 [facility] Creatinine Clearance (Chem N/A [facility] Protein [Mass/volume] in Ser um or Plasmaon 01-31-2021 Protein [Mass/Vol] 6.2 g/dL 6.1-7.9 [facility] Serum globulin measurement b y calculation (mass/volume)on 01-31-2021 Globulin (S) [Mass/Vol] 2.5 g/dL [facility] Serum or plasma alanine stubbs otransferase measurement without P-5'-P (enzymatic activion 01-31-2021 ALT No additional P-5'-P [Catalytic activity/Vol] 47 U/L 10-60 [facility] Serum or plasma albumin/glob ulin mass ratioon 01-31-2021 Albumin/Globulin [Mass ratio] 1.5 {ratio} [facility] Serum or plasma alkaline lorie sphatase measurement (enzymatic activity/volume)on 01-31-2021 ALP [Catalytic activity/Vol] 90 U/L 32-92 [facility] Serum or plasma aspartate am inotransferase measurement (enzymatic activity/volume)on 01-31-2021 AST [Catalytic activity/Vol] 69 U/L 10-42 [facility] Serum or plasma calcium emperatriz urement (mass/volume)on 01-31-2021 Calcium [Mass/Vol] 8.4 mg/dL 8.2-10.2 [facility] Serum or plasma chloride edvin surement (moles/volume)on 01-31-2021 Chloride [Moles/Vol] 100 mmol/L 95-114 [facility] Serum or plasma creatinine m easurement with calculation of estimated glomerular filtron 01-31-2021 Creatinine [Mass/Vol] 1.17 mg/dL 0.44-1.03 [facility] Serum or plasma glucose emperatriz urement (mass/volume)on 01-31-2021 Glucose [Mass/Vol] 157 mg/dL 70-100 [facility] Comment on above: ADA recommended refe rence rangeRandom Glucose Reference Range is dependent on time and content of last meal. Glucose of more than 200 mg/dL in a nonstressed, ambulatory subject supports the diagnosis of Diabetes Mellitus. Serum or plasma high density lipoprotein (HDL) cholesterol measurementon 01-31-2021 Cholesterol in HDL [Mass/Vol] 43 mg/dL 35-85 [facility] Comment on above: HDL CHOL ATP-III CLA SSIFICATION Cardiovascular RiskHDL > or equal to 60 mg/dL LOWHDL < 40 mg/dL HIGH Serum or plasma potassium me asurement (moles/volume)on 01-31-2021 Potassium [Moles/Vol] 3.5 mmol/L 3.5-5.1 [facility] Serum or plasma sodium measu rement (moles/volume)on 01-31-2021 Sodium [Moles/Vol] 140 mmol/L 136-146 [facility] Serum or plasma total biliru bin measurement (mass/volume)on 01-31-2021 Bilirubin [Mass/Vol] 0.9 mg/dL 0.3-1.2 [facility] Serum or plasma total carbon dioxide measurement (moles/volume)on 01-31-2021 CO2 [Moles/Vol] 26.2 mmol/L 22.0-30.0 [facility] Serum or plasma total choles terol/high density lipoprotein (HDL) cholesterol mass dulce maria 01-31-2021 Cholesterol.total/Chol esterol in HDL [Mass ratio] 3.0 {ratio} [facility] Serum or plasma urea nitroge n measurement (mass/volume)on 01-31-2021 Urea nitrogen [Mass/Vol] 23 mg/dL 9-23 [facility] Specific gravity of Urine by Automated test stripon 01-31-2021 Specific gravity (U) [Rel density] 1.020 1.001-1.03 0 [facility] Squamous epithelial cells de tection in urine sediment by light microscopyon 01-31-2021 Epithelial cells.squamous LM Ql (Urine sed) 10-19 [HPF] [facility] Triglyceride [Mass/volume] i n Serum or Plasmaon 01-31-2021 Triglyceride [Mass/Vol] 114 mg/dL 35-149 [facility] Comment on above: TRIG ATP III CLASSIF ICATIONTRIG less than 150 mg/dL NormalTRIG 150-199 mg/dL Borderline highTRIG 200-500 mg/dL High TRIG greater than 500 mg/dL Very highStandard traceable to the Center for Disease Conrtrol and Prevention (CDC) test method. Urinalysison 01-31-2021 Hyaline casts LM Ql (Urine sed) 0-8 [LPF] [facility] Urine bacteria detection by automated methodon 01-31-2021 Bacteria Auto Ql (U) None seen None Seen [facility] Urine clarity by refractomet ry automatedon 01-31-2021 Clarity Refractometry automated (U) Clear Clear [facility] Urine glucose measurement by automated test strip (mass/volume)on 01-31-2021 Glucose Auto test strip (U) [Mass/Vol] Normal mg/dL Normal [facility] Urine hemoglobin detection b y automated test stripon 01-31-2021 Hemoglobin Auto test strip Ql (U) Negative Negative [facility] Urine ketones measurement by automated test strip (mass/volume)on 01-31-2021 Ketones (U) [Mass/Vol] Negative [facility] Urine leukocyte esterase det ection by automated test stripon 01-31-2021 Leukocyte esterase Auto test strip Ql (U) 1+ Negative [facility] Urine microalbumin measureme nt with detection limit of 20 mg/L or less (mass/volume)on 01-31-2021 Albumin DL <= 20 mg/L (U) [Mass/Vol] 0.9 mg/dL 0.0-1.8 [facility] Urine microalbumin/creatinin e mass ratioon 01-31-2021 Albumin/Creatinine DL <= 20 mg/L (U) [Mass ratio] 7.0 mg/g 0.0-30.0 [facility] Comment on above: 30-300 mg/g indicate s an increased risk for diabetic nephropathy. Greater than 300 mg/g is consistent with clinical nephropathy. (Am. J. Kidney Disease 1995, 25:107) Urine nitrite detection by t est stripon 01-31-2021 Nitrite Ql (U) Negative Negative [facility] Urine pH measurement by auto mated test stripon 01-31-2021 pH (U) 5.0 [pH] 5.0-9.0 [facility] Urine protein measurement by automated test strip (mass/volume)on 01-31-2021 Protein (U) [Mass/Vol] Trace mg/dL Negative [facility] Urine total bilirubin detect ion by test stripon 01-31-2021 Bilirubin Ql (U) Negative Negative [facility] Urine urobilinogen measureme nt by automated test strip (mass/volume)on 01-31-2021 Urobilinogen (U) [Mass/Vol] Normal mg/dL Normal [facility] Vital Signs Date Time Vital Sign Value Performing Clinician Facility 12-07-2023 09:08-0500 Blood Pressure Location Nisa Chatmanmetz [facility] 12-07-2023 09:08-0500 Body temperature 96.8 [degF] Nisa Ruth [facility] 12-07-2023 09:08-0500 Diastolic blood pressure 74 mm[Hg] Nisa Avilaz [facility] 12-07-2023 09:08-0500 Heart rate 92 /min Nisa Avilaz [facility] 12-07-2023 09:08-0500 Systolic blood pressure 122 mm[Hg] Nisa Ruth [facility] 10-20-2023 10:30-0500 Body height 162.56 cm [facility] Other 10-20-2023 10:30-0500 Body mass index (BMI) [Ratio] 36.04 kg/m2 Anh Delcid Other [facility] Other 10-20-2023 10:30-0500 Body weight 95.26 kg Anh Delcid Other [facility] Other 10-20-2023 10:30-0500 Diastolic blood pressure 70 mm[Hg] Anh Delcid Other [facility] Other 10-20-2023 10:30-0500 SaO2% (BldA) [Mass fraction] 95 % Anh Delcid Other [facility] Other 10-20-2023 10:30-0500 Systolic blood pressure 123 mm[Hg] Anh Delcid Other [facility] Other 07-24-2023 13:56-0400 Body height 158 cm Daksha Cyrus PA-C Work Phone: [facility] 07-24-2023 13:56-0400 Body temperature 97.7 [degF] Daksha Cyrus PA-C Work Phone: [facility] 07-24-2023 13:56-0400 Body weight 92.63 kg Daksha Cyrus PA-C Work Phone: [facility] 07-24-2023 13:56-0400 Diastolic blood pressure 54 mm[Hg] Daksha Cyrus PA-C Work Phone: [facility] 07-24-2023 13:56-0400 Heart rate 79 /min Daksha Cyrus PA-C Work Phone: [facility] 07-24-2023 13:56-0400 Respiratory rate 16 /min Daksha Cyrus PA-C Work Phone: [facility] 07-24-2023 13:56-0400 SaO2% (BldA) [Mass fraction] 95 % Daksha Cyrus PA-C Work Phone: [facility] 07-24-2023 13:56-0400 Systolic blood pressure 132 mm[Hg] Daksha Cyrus PA-C Work Phone: [facility] 05-01-2023 13:42-0400 Body height 158 cm Daksha Cyrus PA-C Work Phone: [facility] 05-01-2023 13:42-0400 Body temperature 97.59 [degF] Daksha Cyrus PA-C Work Phone: [facility] 05-01-2023 13:42-0400 Body weight 93.62 kg Daksha Cyrus PA-C Work Phone: [facility] 05-01-2023 13:42-0400 Diastolic blood pressure 49 mm[Hg] Daksha Cyrus PA-C Work Phone: [facility] 05-01-2023 13:42-0400 Heart rate 82 /min Daksha Cyrus PA-C Work Phone: [facility] 05-01-2023 13:42-0400 Respiratory rate 18 /min Daksha Cyrus PA-C Work Phone: [facility] 05-01-2023 13:42-0400 SaO2% (BldA) [Mass fraction] 95 % Daksha Cyrus PA-C Work Phone: [facility] 05-01-2023 13:42-0400 Systolic blood pressure 131 mm[Hg] Daksha Cyrus PA-C Work Phone: [facility] 04-15-2023 09:26-0400 Blood Pressure Location Gomez SALAM [facility] 04-15-2023 09:26-0400 Diastolic blood pressure 75 mm[Hg] Gomez SALAM [facility] 04-15-2023 09:26-0400 Heart rate 82 /min Gomez SALAM [facility] 04-15-2023 09:26-0400 Respiratory rate 16 /min Gomez SALAM [facility] 04-15-2023 09:26-0400 SaO2% (BldA) [Mass fraction] 96 % Gomez SALAM [facility] 04-15-2023 09:26-0400 Systolic blood pressure 127 mm[Hg] Gomez SALAM [facility] 03-13-2023 10:00-0400 Diastolic blood pressure 72 mm[Hg] DO Vinay Bunting Work Phone: [facility] 03-13-2023 10:00-0400 Heart rate 76 /min DO Vinay Bunting Work Phone: [facility] 03-13-2023 10:00-0400 Respiratory rate 16 /min DO Vinay Bunting Work Phone: [facility] 03-13-2023 10:00-0400 SaO2% (BldA) [Mass fraction] 96 % DO Vinay Bunting Work Phone: [facility] 03-13-2023 10:00-0400 Systolic blood pressure 126 mm[Hg] DO Vinay Bunting Work Phone: [facility] 03-13-2023 08:00-0400 Body temperature 97.7 [degF] DO Vinay Bunting Work Phone: [facility] 03-13-2023 05:27-0400 Body weight 96.8 kg DO Vinay Bunting Work Phone: [facility] 03-12-2023 12:20-0400 Body height 157.48 cm DO Vinay Bunting Work Phone: [facility] 02-06-2023 14:08-0400 Body height 158 cm Daksha Kanger PA-C Work Phone: [facility] 02-06-2023 14:08-0400 Body temperature 97.2 [degF] Daksha Kanger PA-C Work Phone: [facility] 02-06-2023 14:08-0400 Body weight 97.8 kg Daksha Cyrus PA-C Work Phone: [facility] 02-06-2023 14:08-0400 Diastolic blood pressure 61 mm[Hg] Daksha Cyrus PA-C Work Phone: [facility] 02-06-2023 14:08-0400 Heart rate 84 /min Daksha Cyrus PA-C Work Phone: [facility] 02-06-2023 14:08-0400 Respiratory rate 16 /min Daksha Cyrus PA-C Work Phone: [facility] 02-06-2023 14:08-0400 SaO2% (BldA) [Mass fraction] 96 % Daksha Cyrus PA-C Work Phone: [facility] 02-06-2023 14:08-0400 Systolic blood pressure 137 mm[Hg] Daksha Cyrus PA-C Work Phone: [facility] 12-29-2022 16:28-0500 Diastolic blood pressure 67 mm[Hg] DO Vinay Bunting Work Phone: [facility] 12-29-2022 16:28-0500 Heart rate 87 /min DO Vinay Bunting Work Phone: [facility] 12-29-2022 16:28-0500 Respiratory rate 16 /min DO Vinay Bunting Work Phone: [facility] 12-29-2022 16:28-0500 SaO2% (BldA) [Mass fraction] 96 % DO Vinay Bunting Work Phone: [facility] 12-29-2022 16:28-0500 Systolic blood pressure 156 mm[Hg] DO Vinay Bunting Work Phone: [facility] 12-29-2022 13:16-0500 Body height 162.56 cm DO Vinay Bunting Work Phone: [facility] 12-29-2022 13:16-0500 Body temperature 97.5 [degF] DO Vinay Bunting Work Phone: [facility] 12-29-2022 13:16-0500 Body weight 97.06 kg DO Vinay Bunting Work Phone: [facility] 12-24-2022 10:10-0500 Blood Pressure Location Nisa Miranda [facility] 12-24-2022 10:10-0500 Body temperature 96.8 [degF] Nisa Avilaz [facility] 12-24-2022 10:10-0500 Diastolic blood pressure 75 mm[Hg] Nisa Chatmanmetz [facility] 12-24-2022 10:10-0500 Heart rate 77 /min Nisa Miranda [facility] 12-24-2022 10:10-0500 Systolic blood pressure 132 mm[Hg] Nisa Miranda [facility] 12-12-2022 14:23-0500 Body height 158 cm Daksha Cyrus PA-C Work Phone: [facility] 12-12-2022 14:23-0500 Body temperature 97.39 [degF] Daksha Cyrus PA-C Work Phone: [facility] 12-12-2022 14:23-0500 Body weight 97.98 kg Daksha Cyrus PA-C Work Phone: [facility] 12-12-2022 14:23-0500 Diastolic blood pressure 75 mm[Hg] Daksha Cyrus PA-C Work Phone: [facility] 12-12-2022 14:23-0500 Heart rate 69 /min Daksha Cyrus PA-C Work Phone: [facility] 12-12-2022 14:23-0500 Respiratory rate 16 /min Daksha Kanger PA-C Work Phone: [facility] 12-12-2022 14:23-0500 SaO2% (BldA) [Mass fraction] 96 % Daksha Cyrus PA-C Work Phone: [facility] 12-12-2022 14:23-0500 Systolic blood pressure 170 mm[Hg] Daksha Kanger PA-C Work Phone: [facility] 10-30-2022 13:19-0500 Body temperature 98.71 [degF] Chair Jarred Work Phone: [facility] 10-30-2022 13:19-0500 Diastolic blood pressure 55 mm[Hg] Chair Jarred Work Phone: [facility] 10-30-2022 13:19-0500 Heart rate 82 /min Chair Jarred Work Phone: [facility] 10-30-2022 13:19-0500 Respiratory rate 18 /min Chair Lagrange Work Phone: [facility] 10-30-2022 13:19-0500 SaO2% (BldA) [Mass fraction] 95 % Chair Lagrange Work Phone: [facility] 10-30-2022 13:19-0500 Systolic blood pressure 127 mm[Hg] Chair Jarred Work Phone: [facility] 10-23-2022 13:45-0500 Diastolic blood pressure 47 mm[Hg] Chair Lagrange Work Phone: [facility] 10-23-2022 13:45-0500 Heart rate 78 /min Chair Lagrange Work Phone: [facility] 10-23-2022 13:45-0500 Respiratory rate 16 /min Chair Jarred Work Phone: [facility] 10-23-2022 13:45-0500 SaO2% (BldA) [Mass fraction] 99 % Chair Lagrange Work Phone: [facility] 10-23-2022 13:45-0500 Systolic blood pressure 128 mm[Hg] Chair Lagrange Work Phone: [facility] 10-16-2022 10:01-0500 Body height 158 cm Daksha Cyrus PA-C Work Phone: [facility] 10-16-2022 10:01-0500 Body temperature 97.9 [degF] Daksha Cyrus PA-C Work Phone: [facility] 10-16-2022 10:01-0500 Body weight 97.07 kg Daksha Cyrus PA-C Work Phone: [facility] 10-16-2022 10:01-0500 Diastolic blood pressure 62 mm[Hg] Daksha Cyrus PA-C Work Phone: [facility] 10-16-2022 10:01-0500 Heart rate 92 /min Daksha Cyrus PA-C Work Phone: [facility] 10-16-2022 10:01-0500 Respiratory rate 16 /min Daksha Cyrus PA-C Work Phone: [facility] 10-16-2022 10:01-0500 SaO2% (BldA) [Mass fraction] 98 % Daksha Cyrus PA-C Work Phone: [facility] 10-16-2022 10:01-0500 Systolic blood pressure 149 mm[Hg] Daksha Cyrus PA-C Work Phone: [facility] 10-14-2022 11:30-0500 Body height 162.56 cm [facility] Other 10-14-2022 11:30-0500 Body mass index (BMI) [Ratio] 36.39 kg/m2 Anh Delcid Other [facility] Other 10-14-2022 11:30-0500 Body temperature 97.8 [degF] Anh Delcid Other [facility] Other 10-14-2022 11:30-0500 Body weight 96.16 kg Anh Delcid Other [facility] Other 10-14-2022 11:30-0500 Diastolic blood pressure 74 mm[Hg] Anh Delcid Other [facility] Other 10-14-2022 11:30-0500 SaO2% (BldA) [Mass fraction] 97 % Anh Delcid Other [facility] Other 10-14-2022 11:30-0500 Systolic blood pressure 118 mm[Hg] Anh Delcid Other [facility] Other 10-01-2022 10:51-0500 Body height 158 cm Delores Walker MD Work Phone: [facility] 10-01-2022 10:51-0500 Body temperature 96.91 [degF] Delores Walker MD Work Phone: [facility] 10-01-2022 10:51-0500 Body weight 98.07 kg Delores Walker MD Work Phone: [facility] 10-01-2022 10:51-0500 Diastolic blood pressure 66 mm[Hg] Delores Walker MD Work Phone: [facility] 10-01-2022 10:51-0500 Heart rate 92 /min Delores Walker MD Work Phone: [facility] 10-01-2022 10:51-0500 Respiratory rate 18 /min Delores Walker MD Work Phone: [facility] 10-01-2022 10:51-0500 SaO2% (BldA) [Mass fraction] 96 % Delores Walker MD Work Phone: [facility] 10-01-2022 10:51-0500 Systolic blood pressure 153 mm[Hg] Delores Walker MD Work Phone: [facility] 09-02-2022 10:24-0400 Diastolic blood pressure 71 mm[Hg] Jose Carlos Mattson [facility] 09-02-2022 10:24-0400 Mean blood pressure 96 mm[Hg] Jose Carlos Mattson [facility] 09-02-2022 10:24-0400 Systolic blood pressure 145 mm[Hg] Jose Carlos Mattson [facility] 09-02-2022 10:10-0400 Blood Pressure Location Jose Carlos Mattson [facility] 09-02-2022 10:10-0400 Diastolic blood pressure 74 mm[Hg] Jose Carlos Mattson [facility] 09-02-2022 10:10-0400 Heart rate 90 /min Jose Carlos Mattson [facility] 09-02-2022 10:10-0400 Respiratory rate 18 /min Jose Carlos Mattson [facility] 09-02-2022 10:10-0400 SaO2% (BldA) [Mass fraction] 99 % Jose Carlos Mattson [facility] 09-02-2022 10:10-0400 Systolic blood pressure 145 mm[Hg] Jose Carlos Mattson [facility] 07-22-2022 20:31-0400 Diastolic blood pressure 62 mm[Hg] DO Vinay Bunting Work Phone: [facility] 07-22-2022 20:31-0400 Heart rate 73 /min DO Vinay Bunting Work Phone: [facility] 07-22-2022 20:31-0400 Respiratory rate 16 /min DO Vinay Bunting Work Phone: [facility] 07-22-2022 20:31-0400 SaO2% (BldA) [Mass fraction] 99 % DO Vinay Bunting Work Phone: [facility] 07-22-2022 20:31-0400 Systolic blood pressure 132 mm[Hg] DO Vinay Bunting Work Phone: [facility] 07-22-2022 15:52-0400 Body height 162.56 cm DO Vinay Bunting Work Phone: [facility] 07-22-2022 15:52-0400 Body temperature 98 [degF] DO Vinay Bunting Work Phone: [facility] 07-22-2022 15:52-0400 Body weight 98.06 kg DO Vinay Bunting Work Phone: [facility] 06-12-2022 09:33-0400 Blood Pressure Location Gomez SALAM [facility] 06-12-2022 09:33-0400 Diastolic blood pressure 77 mm[Hg] Gomez SALAM [facility] 06-12-2022 09:33-0400 Heart rate 87 /min Gomez SALAM [facility] 06-12-2022 09:33-0400 Respiratory rate 14 /min Gomez SALAM [facility] 06-12-2022 09:33-0400 SaO2% (BldA) [Mass fraction] 97 % Gomez SALAM [facility] 06-12-2022 09:33-0400 Systolic blood pressure 163 mm[Hg] Gomez SALAM [facility] 06-12-2022 09:20-0400 Blood Pressure Location Gomez SALAM [facility] 06-12-2022 09:20-0400 Diastolic blood pressure 70 mm[Hg] Gomez SALAM [facility] 06-12-2022 09:20-0400 Heart rate 92 /min Gomez SALAM [facility] 06-12-2022 09:20-0400 Respiratory rate 29 /min Gomez SALAM [facility] 06-12-2022 09:20-0400 SaO2% (BldA) [Mass fraction] 97 % Gomez SALAM [facility] 06-12-2022 09:20-0400 Systolic blood pressure 127 mm[Hg] Gomez SALAM [facility] 06-12-2022 09:15-0400 Blood Pressure Location Gomez SALAM [facility] 06-12-2022 09:15-0400 Diastolic blood pressure 73 mm[Hg] Gomez SALAM [facility] 06-12-2022 09:15-0400 Heart rate 92 /min Gomez SALAM [facility] 06-12-2022 09:15-0400 Respiratory rate 10 /min Gomez SALAM [facility] 06-12-2022 09:15-0400 SaO2% (BldA) [Mass fraction] 91 % Gomez SALAM [facility] 06-12-2022 09:15-0400 Systolic blood pressure 129 mm[Hg] Gomez SALAM [facility] 06-12-2022 09:08-0400 Body temperature 97.34 [degF] Gomez SALAM [facility] 06-12-2022 07:48-0400 Body temperature 96.8 [degF] Gomez SALAM [facility] 04-23-2022 09:40-0400 Diastolic blood pressure 76 mm[Hg] Gomez SALAM [facility] 04-23-2022 09:40-0400 Heart rate 78 /min Gomez SALAM [facility] 04-23-2022 09:40-0400 Systolic blood pressure 138 mm[Hg] Gomez SALAM [facility] Encounters Encounter Date Encounter Type Care Provider Facility Start: 01-18-2024 End: 01-18-2024 ambulatory TAD DAVIS Not Available Start: 12-07-2023 [facility] Start: 12-07-2023 End: 12-07-2023 Patient encounter procedure Nisa Miranda [facility] Start: 10-26-2023 Telephone encounter Samantha Guerra Hematology/Oncology Comment on above: Results Start: 10-23-2023 End: 10-23-2023 ambulatory NISA MIRANDA Facility:[facility] Start: 10-20-2023 Office outpatient vi sit 25 minutes Anh [facility] Start: 10-20-2023 End: 10-20-2023 ambulatory Vinay Bunting Facility:[facility] Start: 10-20-2023 End: 10-20-2023 ambulatory DO Vinay Bunting Work Phone: [facility] Work Phone: Start: 10-20-2023 End: 10-20-2023 Patient encounter procedure DO Vinay Bunting Work Phone: [facility] Work Phone: Start: 09-05-2023 End: 09-05-2023 ambulatory Vinay Bunting Facility:[facility] Start: 09-05-2023 End: 09-05-2023 ambulatory DO Vinay Bunting Work Phone: [facility] Work Phone: Start: 09-05-2023 End: 09-05-2023 Patient encounter procedure DO Vinay Bunting Work Phone: [facility] [place] Work Phone: Start: 07-27-2023 Telephone encounter Samanhta Guerra Hematology/Oncology Comment on above: Results Start: [...] 05-20-2023 End: 05-20-2023 ambulatory Vinay Bunting Facility:[facility] Start: 05-04-2023 Telephone encounter Karlie Car RN Hematology/Oncology Comment on above: Results Start: 05-01-2023 End: 05-01-2023 ambulatory Daksha Bridges PA-C Work Phone: Hematology/Oncology Comment on above: Iron deficiency anem ia secondary to inadequate dietary iron intake (Primary Dx); Stage 3b chronic kidney disease (HCC) Start: 05-01-2023 End: 05-01-2023 Patient encounter procedure Daksha Bridges PA-C Work Phone: [facility] Start: 04-25-2023 ambulatory Facility:[id number] Start: 04-22-2023 End: 04-23-2023 ambulatory Gomez SALAM Facility:[facility] Start: 04-22-2023 End: 04-22-2023 Patient encounter procedure Gomez SALAM [facility] Start: 04-15-2023 End: 04-16-2023 ambulatory [facility] Facility:[facility] Start: 04-15-2023 End: 04-15-2023 Patient encounter procedure Gomez SALAM [facility] Start: 03-27-2023 End: 03-28-[address] VINAY BUNTING Facility: Start: 03-13-2023 End: 03-13-2023 ambulatory Vinay Bunting Facility:[facility] Start: 03-13-2023 End: 03-13-2023 ambulatory DO Vinay Bunting Work Phone: [facility] Work Phone: Start: 03-13-2023 End: 03-13-2023 Patient encounter procedure DO Vinay Bunting Work Phone: [facility]Electrodiagnostic [facility] Work Phone: Start: 03-11-2023 End: 03-13-2023 Evaluation and management of inpatient Kimberly Arteaga Facility:[facility] Start: 03-11-2023 End: 03-13-2023 Evaluation and management of inpatient DO Vinay Bunting Work Phone: [facility] [place] [facility] Work Phone: Start: 03-11-2023 ambulatory Facility:[id number] Start: 02-23-2023 End: 02-[facility] [facility] Start: 02-09-2023 Telephone encounter Jovanni Cruz RN Hematology/Oncology Comment on above: Results Start: 02-06-2023 End: 03-24-2023 ambulatory DAKSHA BRIDGES Facility:[facility] Start: 02-06-2023 End: 02-06-2023 ambulatory Daksha Martinez Cyrus SIMMONS Work Phone: Hematology/Oncology Comment on above: Iron deficiency anem ia secondary to inadequate dietary iron intake (Primary Dx) Start: 02-06-2023 End: 02-06-2023 Patient encounter procedure Daksha Bridges PA-C Work Phone: [facility] Start: 02-03-2023 End: 02-04-2023 ambulatory Nisa Miranda Facility:[facility] Start: 01-16-2023 End: 01-16-2023 ambulatory Vinay Bunting Facility:[facility] Start: 01-16-2023 End: 01-16-2023 Patient encounter procedure DO Vinay Bunting Work Phone: [facility] [place] Work Phone: Start: 01-08-2023 End: 01-09-2023 ambulatory Nisa Miranda Facility:[facility] Start: 01-08-2023 End: 01-08-2023 Patient encounter procedure Nisa Miranda [facility] Start: 12-29-2022 End: 12-29-2022 ambulatory Vinay Bunting Facility:[facility] Start: 12-29-2022 End: 12-29-2022 Admission to same day surgery center DO Vinay Bunting Work Phone: [facility] [place] Start: 12-29-2022 End: 12-29-2022 ambulatory DO Vinay Bunting Work Phone: [facility] Work Phone: Start: 12-24-2022 End: 12-25-2022 ambulatory Nisa Miranda Facility:[facility] Start: 12-24-2022 End: 12-24-2022 Patient encounter procedure Nisa Miranda [facility] Start: 12-15-2022 Telephone encounter Jovanni Cruz RN Hematology/Oncology Comment on above: Results Start: 12-12-2022 End: 12-12-2022 ambulatory Daksha Bridges PA-C Work Phone: Hematology/Oncology Comment on above: Iron deficiency anem ia secondary to inadequate dietary iron intake (Primary Dx) Start: 12-12-2022 End: 12-12-2022 Patient encounter procedure Daksha Bridges PA-C Work Phone: [facility] Start: 10-30-2022 End: 10-31-2022 [facility] Start: 10-30-2022 End: 10-30-2022 ambulatory Chair 15 Jarred Work Phone: Hematology/Oncology Comment on above: Iron deficiency anem ia due to chronic blood loss (Primary Dx) Start: 10-23-2022 End: 10-23-2022 ambulatory Chair 14 Lagrange Work Phone: Hematology/Oncology Comment on above: Iron deficiency anem ia due to chronic blood loss (Primary Dx) Start: 10-22-2022 Social Work Renetta POTTERW Hematolo gy/Oncology Start: 10-16-2022 End: 10-16-2022 Patient encounter procedure Daksha Bridges PA-C Work Phone: [facility] Start: 10-16-2022 End: 10-16-2022 ambulatory Daksha Bridges PA-C Work Phone: Hematology/Oncology Comment on above: Anemia, unspecified type (Primary Dx); Iron deficiency anemia secondary to inadequate dietary iron intake Iron deficiency anem ia due to chronic blood loss (Primary Dx) Start: 10-15-2022 Telephone encounter Financial Navigator Braden Work Phone: Hematology/Oncology Comment on above: Benefits Investigati on Start: 10-14-2022 Office outpatient vi sit 25 minutes [facility] Start: 10-14-2022 End: 10-14-2022 ambulatory DO Vinay Bunting Work Phone: [facility] Work Phone: Start: 10-14-2022 End: 10-14-2022 Patient encounter procedure DO Vinay Bunting Work Phone: [facility] Start: 10-10-2022 Social Work Renetta BOWSER Hematolo gy/Oncology Start: 10-03-2022 Telephone encounter Delores gardner MD Work Phone: Hematology/Oncology Comment on above: Results, Lab Start: 10-01-2022 End: 10-01-2022 ambulatory Delores Walker MD Work Phone: Hematology/Oncology Comment on above: Anemia, unspecified type (Primary Dx) Start: 10-01-2022 End: 10-01-2022 Patient encounter procedure Delores Walker MD Work Phone: [facility] Start: 09-26-2022 Chart abstracting Delores hernandez MD Work Phone: Hematology/Oncology Start: 09-19-2022 End: 09-19-2022 Patient encounter procedure Nisa Miranda [facility] Start: 09-09-2022 End: 09-10-[address] DOCTOR SALGADO Facility: Start: 09-02-2022 End: 09-02-2022 Patient encounter procedure Jose Carlos Mattson [facility] Start: 07-31-2022 End: 07-31-2022 Patient encounter procedure DO Vinay Bunting Work Phone: [facility] Start: 07-24-2022 End: 07-24-2022 Patient encounter procedure DO Vinay Bunting Work Phone: [facility] [place] Start: 07-22-2022 End: 07-22-2022 Emergency department patient visit DO Vinay Bunting Work Phone: [facility]-Emergency Room Start: 06-24-2022 End: 06-25-2022 ambulatory JASON RUSSELL Facility:[facility] Start: 06-23-2022 End: 06-24-[address] VINAY MATTA Facility:[facility] Start: 06-16-2022 End: 06-16-2022 Patient encounter procedure DO Vinay Bunting Work Phone: [facility] Start: 06-12-2022 End: 06-12-2022 Patient encounter procedure Gomez SALAM [facility] Start: 05-21-2022 End: 05-21-2022 Patient encounter procedure DO Vinay Bunting Work Phone: [facility] [place] Start: 04-23-2022 End: 04-23-2022 Patient encounter procedure Gomezlorraine SPRINGAM [facility] Start: 04-22-2022 End: 04-22-2022 Patient encounter procedure DO Vinay Bunting Work Phone: [facility] [place] Start: 01-31-2021 End: 01-31-2021 Patient encounter procedure Vinay Bunting -[facility] [place] Procedures Date Procedure Procedure Detail Performing Clinician [...] Work Phone: Start: 12-29-2022 Debridement DO Vinay Matta Work Phone: Start: 07-31-2022 Dual energy X-ray absorptiometry DO Naren in [place] Work Phone: Start: 07-22-2022 Plain chest X-ray DO Vinay Bunting Work Phone: Start: 06-16-2022 Screening mammography of bilateral breasts DO Vinay [place] Work Phone: Start: 06-12-2022 Colonoscopy Jason RUSSELL Start: 06-12-2022 Esophagogastroduodenoscopy [facility] Start: 04-22-2022 X-ray of both knees DO Vinay Matta Work Phone: Scar management Gomez Paratek Urine culture DO Vinay Shaver ing Work Phone: Plan of Treatment Date Care Activity Detail Author Start: 10-23-2026 Diabetes Screening Diabetes Screenin [facility] Start: 07-24-2026 DIABETES SCREEN DIABETES SCREEN [facility] Start: 05-01-2026 DIABETES SCREEN DIABETES SCREEN [facility] Start: 02-06-2026 DIABETES SCREEN DIABETES SCREEN [facility] Start: 12-12-2025 DIABETES SCREEN DIABETES SCREEN [facility] Start: 10-01-2025 DIABETES SCREEN DIABETES SCREEN [facility] Start: 08-01-2023 End: 10-01-2023 CBC W Auto Differential panel - Blood CBC + DIFF Lab Routine Iron deficiency anemia secondary to inadequate dietary iron intake Expected: 08/01/2023 (Approximate), Expires: 10/01/2023 [facility] Work Phone: Comment on above: Expected: 08/01/2023 (Approximate), Expires: 10/01/2023 Start: 08-01-2023 End: 10-01-2023 Comprehensive metabolic 2000 panel - Serum or Plasma COMP METABOLIC PANEL Lab Routine Iron deficiency anemia secondary to inadequate dietary iron intake Expected: 08/01/2023 (Approximate), Expires: 10/01/2023 [facility] Work Phone: Comment on above: Expected: 08/01/2023 (Approximate), Expires: 10/01/2023 Start: 08-01-2023 End: 10-01-2023 Ferritin [Mass/volume] in Serum or Plasma FERRITIN BLD Lab Routine Iron deficiency anemia secondary to inadequate dietary iron intake Expected: 08/01/2023 (Approximate), Expires: 10/01/2023 [facility] Work Phone: Comment on above: Expected: 08/01/2023 (Approximate), Expires: 10/01/2023 Start: 08-01-2023 End: 10-01-2023 Iron and Iron binding capacity panel - Serum or Plasma IRON + TIBC Lab Routine Iron deficiency anemia secondary to inadequate dietary iron intake Expected: 08/01/2023 (Approximate), Expires: 10/01/2023 [facility] Work Phone: Comment on above: Expected: 08/01/2023 (Approximate), Expires: 10/01/2023 Start: 07-24-2023 End: 09-23-2023 CBC W Auto Differential panel - Blood CBC + DIFF Lab Routine Iron deficiency anemia secondary to inadequate dietary iron intake Stage 3b chronic kidney disease (HCC) Expected: 07/24/2023, Expires: 09/23/2023 [facility] Work Phone: Comment on above: Expected: 07/24/2023 , Expires: 09/23/2023 Start: 07-24-2023 End: 09-23-2023 Comprehensive metabolic 2000 panel - Serum or Plasma COMP METABOLIC PANEL Lab Routine Iron deficiency anemia secondary to inadequate dietary iron intake Stage 3b chronic kidney disease (HCC) Expected: 07/24/2023, Expires: 09/23/2023 [facility] Work Phone: Comment on above: Expected: 07/24/2023 , Expires: 09/23/2023 Start: 07-24-2023 End: 09-23-2023 Ferritin [Mass/volume] in Serum or Plasma FERRITIN BLD Lab Routine Iron deficiency anemia secondary to inadequate dietary iron intake Stage 3b chronic kidney disease (HCC) Expected: 07/24/2023, Expires: 09/23/2023 [facility] Work Phone: Comment on above: Expected: 07/24/2023 , Expires: 09/23/2023 Start: 07-24-2023 End: 09-23-2023 Iron and Iron binding capacity panel - Serum or Plasma IRON + TIBC Lab Routine Iron deficiency anemia secondary to inadequate dietary iron intake Stage 3b chronic kidney disease (HCC) Expected: 07/24/2023, Expires: 09/23/2023 [facility] Work Phone: Comment on above: Expected: 07/24/2023 , Expires: 09/23/2023 Start: 07-17-2023 Covid-19 Vaccine () Covid-19 Vaccine () [facility] Start: 07-17-2023 Influenza vaccination [facility] Start: 05-09-2023 End: 07-09-2023 CBC W Auto Differential panel - Blood CBC + DIFF Lab Routine Iron deficiency anemia secondary to inadequate dietary iron intake Expected: 05/09/2023 (Approximate), Expires: 07/09/2023 [facility] Work Phone: Comment on above: Expected: 05/09/2023 (Approximate), Expires: 07/09/2023 Start: 05-09-2023 End: 07-09-2023 Comprehensive metabolic 2000 panel - Serum or Plasma COMP METABOLIC PANEL Lab Routine Iron deficiency anemia secondary to inadequate dietary iron intake Expected: 05/09/2023 (Approximate), Expires: 07/09/2023 [facility] Work Phone: Comment on above: Expected: 05/09/2023 (Approximate), Expires: 07/09/2023 Start: 05-09-2023 End: 07-09-2023 Ferritin [Mass/volume] in Serum or Plasma FERRITIN BLD Lab Routine Iron deficiency anemia secondary to inadequate dietary iron intake Expected: 05/09/2023 (Approximate), Expires: 07/09/2023 [facility] Work Phone: Comment on above: Expected: 05/09/2023 (Approximate), Expires: 07/09/2023 Start: 05-09-2023 End: 07-09-2023 Iron and Iron binding capacity panel - Serum or Plasma IRON + TIBC Lab Routine Iron deficiency anemia secondary to inadequate dietary iron intake Expected: 05/09/2023 (Approximate), Expires: 07/09/2023 [facility] Work Phone: Comment on above: Expected: 05/09/2023 (Approximate), Expires: 07/09/2023 Start: 03-13-2023 [facility] Start: 03-11-2023 Physical therapy procedure [facility] Start: 03-11-2023 Hospital admission [facility] Start: 03-11-2023 Referral to neurologist [facility] Start: 02-09-2023 End: 04-11-2023 CBC W Auto Differential panel - Blood CBC + DIFF Lab Routine Iron deficiency anemia secondary to inadequate dietary iron intake Expected: 02/09/2023 (Approximate), Expires: 04/11/2023 [facility] Work Phone: Comment on above: Expected: 02/09/2023 (Approximate), Expires: 04/11/2023 Start: 02-09-2023 End: 04-11-2023 Comprehensive metabolic 2000 panel - Serum or Plasma COMP METABOLIC PANEL Lab Routine Iron deficiency anemia secondary to inadequate dietary iron intake Expected: 02/09/2023 (Approximate), Expires: 04/11/2023 [facility] Work Phone: Comment on above: Expected: 02/09/2023 (Approximate), Expires: 04/11/2023 Start: 02-09-2023 End: 04-11-2023 Ferritin [Mass/volume] in Serum or Plasma FERRITIN BLD Lab Routine Iron deficiency anemia secondary to inadequate dietary iron intake Expected: 02/09/2023 (Approximate), Expires: 04/11/2023 [facility] Work Phone: Comment on above: Expected: 02/09/2023 (Approximate), Expires: 04/11/2023 Start: 02-09-2023 End: 04-11-2023 Iron and Iron binding capacity panel - Serum or Plasma IRON + TIBC Lab Routine Iron deficiency anemia secondary to inadequate dietary iron intake Expected: 02/09/2023 (Approximate), Expires: 04/11/2023 [facility] Work Phone: Comment on above: Expected: 02/09/2023 (Approximate), Expires: 04/11/2023 Start: 02-06-2023 End: 04-08-2023 CBC W Auto Differential panel - Blood CBC + DIFF Lab Routine Iron deficiency anemia secondary to inadequate dietary iron intake Expected: 02/06/2023, Expires: 04/08/2023 [facility] Work Phone: Comment on above: Expected: 02/06/2023 , Expires: 04/08/2023 Start: 02-06-2023 End: 04-08-2023 Comprehensive metabolic 2000 panel - Serum or Plasma COMP METABOLIC PANEL Lab Routine Iron deficiency anemia secondary to inadequate dietary iron intake Expected: 02/06/2023, Expires: 04/08/2023 [facility] Work Phone: Comment on above: Expected: 02/06/2023 , Expires: 04/08/2023 Start: 02-06-2023 End: 04-08-2023 Iron and Iron binding capacity panel - Serum or Plasma IRON + TIBC Lab Routine Iron deficiency anemia secondary to inadequate dietary iron intake Expected: 02/06/2023, Expires: 04/08/2023 [facility] Work Phone: Comment on above: Expected: 02/06/2023 , Expires: 04/08/2023 Start: 12-29-2022 [facility] Start: 11-27-2022 End: 01-27-2023 CBC W Auto Differential panel - Blood CBC + DIFF Lab Routine Anemia, unspecified type Iron deficiency anemia secondary to inadequate dietary iron intake Expected: 11/27/2022, Expires: 01/27/2023 [facility] Work Phone: Comment on above: Expected: 11/27/2022 , Expires: 01/27/2023 Start: 11-27-2022 End: 01-27-2023 Comprehensive metabolic 2000 panel - Serum or Plasma COMP METABOLIC PANEL Lab Routine Anemia, unspecified type Iron deficiency anemia secondary to inadequate dietary iron intake Expected: 11/27/2022, Expires: 01/27/2023 [facility] Work Phone: Comment on above: Expected: 11/27/2022 , Expires: 01/27/2023 Start: 11-27-2022 End: 01-27-2023 Ferritin [Mass/volume] in Serum or Plasma FERRITIN BLD Lab Routine Anemia, unspecified type Iron deficiency anemia secondary to inadequate dietary iron intake Expected: 11/27/2022, Expires: 01/27/2023 [facility] Work Phone: Comment on above: Expected: 11/27/2022 , Expires: 01/27/2023 Start: 11-27-2022 End: 01-27-2023 Iron and Iron binding capacity panel - Serum or Plasma IRON + TIBC Lab Routine Anemia, unspecified type Iron deficiency anemia secondary to inadequate dietary iron intake Expected: 11/27/2022, Expires: 01/27/2023 [facility] Work Phone: Comment on above: Expected: 11/27/2022 , Expires: 01/27/2023 Start: 11-16-2022 ADVANCE DIRECTIVE DISCUSSION ADVANCE DIRECTIVE DISCUSSION [facility] Start: 11-16-2022 DEPRESSION ASSESSMENT DEPRESSION ASS ESSMENT [facility] Start: 10-29-2022 End: 12-29-2022 MONOCLONAL PROTEIN, SERUM (BLOOD) MONOCLONAL PROTEIN, SERUM (BLOOD) Lab Routine Anemia, unspecified type Expected: 10/29/2022 (Approximate), Expires: 12/29/2022 [facility] Work Phone: Comment on above: Expected: 10/29/2022 (Approximate), Expires: 12/29/2022 Start: 10-29-2022 End: 12-29-2022 PROTEIN ELECTROPHORESIS SERUM W/INTERP PROTEIN ELECTROPHORESIS SERUM W/INTERP Lab Routine Anemia, unspecified type Expected: 10/29/2022 (Approximate), Expires: 12/29/2022 [facility] Work Phone: Comment on above: Expected: 10/29/2022 (Approximate), Expires: 12/29/2022 Start: 10-01-2022 End: 12-01-2022 Cobalamin (Vitamin B12) [Mass/volume] in Serum or Plasma [facility] Work Phone: Comment on above: Expected: 10/01/2022 , Expires: 12/01/2022 Start: 10-01-2022 End: 10-01-2023 Ferritin [Mass/volume] in Serum or Plasma [facility] Work Phone: Comment on above: Expected: 10/01/2022 , Expires: 10/01/2023 Start: 10-01-2022 End: 12-01-2022 Folate [Mass/volume] in Serum or Plasma [facility] Work Phone: Comment on above: Expected: 10/01/2022 , Expires: 12/01/2022 Start: 10-01-2022 End: 10-01-2023 Iron and Iron binding capacity panel - Serum or Plasma [facility] Work Phone: Comment on above: Expected: 10/01/2022 , Expires: 10/01/2023 Start: 10-01-2022 End: 12-01-2022 PROTEIN ELECT RND UR W/INTERP [facility] Work Phone: Comment on above: Expected: 10/01/2022 , Expires: 12/01/2022 Start: 10-01-2022 End: 12-01-2022 Zinc [Mass/volume] in Serum or Plasma [facility] Work Phone: Comment on above: Expected: 10/01/2022 , Expires: 12/01/2022 Start: 07-17-2022 Influenza vaccination INFLUENZA (#1) [facility] Start: 11-16-2021 ADVANCE DIRECTIVE DISCUSSION ADVANCE DIRECTIVE DISCUSSION [facility] Start: 11-16-2021 DEPRESSION ASSESSMENT DEPRESSION ASS ESSMENT [facility] Start: 10-08-2021 COVID-19 VACCINE (4 - Booster for Pfizer series) COVID-19 VACCINE (4 - Booster for Pfizer series) [facility] Start: 10-08-2021 COVID-19 VACCINE (4 - Pfizer series) COVID-19 VACCINE (4 - Pfizer series) [facility] Start: 08-16-2019 Pneumococcal Vaccine : 65+ (2 - PCV) Pneumococcal Vaccine: 65+ (2 - PCV) [facility] Start: 08-16-2019 PNEUMOCOCCAL: 65+ (2 - PCV) PNEUMOCOCCAL: 65+ (2 - PCV) [facility] Start: 2013 BONE DENSITY BONE DENSITY [facility] Start: 2013 Bone Density Screening Bone Density Screening [facility] Start: 2013 PNEUMOCOCCAL: 65+ (1 - PCV) PNEUMOCOCCAL: 65+ (1 - PCV) [facility] Start: 2008 RSV Vaccine (1 - 1-d ose 60+ series) RSV Vaccine (1 - 1-dose 60+ series) [facility] Start: 1998 SHINGRIX VACCINE (1 of 2) SILVESTRE GRIX VACCINE (1 of 2) [facility] Start: 1993 COLOGUARD (FIT-DNA) COLOGUARD (FIT-D NA) [facility] Start: 1993 Colonoscopy COLONOSCOPY [facility] Start: 1993 COLORECTAL CANCER SCREENING COLORECTAL CANCER SCREENING [facility] Start: [address] COLONOGRAPHY [facility] Start: 1993 DIABETES SCREEN DIABETES SCREEN [facility] Start: 1993 FECAL OCCULT BLOOD FECAL OCCULT BLOO D [facility] Start: 1993 Lipid 1996 panel - S hilda or Plasma Lipid Screening [facility] Start: 1993 LIPID SCREEN LIPID SCREEN [facility] Start: 1993 SIGMOIDOSCOPY SIGMOIDOSCOPY [facility] Start: 1988 Mammography [facility] Start: 1967 Urine microalbumin profile [facility] Start: 1966 HEPATITIS C SCREENING HEPATITIS C SC ROSALES [facility] Start: 06-29-1951 COVID-19 VACCINE (#1) COVID-19 VACCI NE (#1) [facility] Bacteria identified in Urine by Culture [facility] MONOCLONAL PROTEIN, SERUM (BLOOD) MONOCLONAL PROTEIN, SERUM (BLOOD) Lab Routine Anemia, unspecified type 10/01/2022 12:19 PM EST [facility] Work Phone: Patient Education [facility] Work Phone: Patient referral [facility] Work Phone: PROTEIN ELECTROPHORE SIS SERUM W/INTERP PROTEIN ELECTROPHORESIS SERUM W/INTERP Lab Routine Anemia, unspecified type 10/01/2022 12:19 PM EST [facility] Work Phone: [facility] Immunizations Immunization Date Immunization Notes Care Provider Enrique eason 11-25-2023 influenza virus vacc ine, unspecified formulation Nisa Miranda [facility] 08-27-2022 influenza virus vacc ine, unspecified formulation Nisa Miranda [facility] 08-27-2022 influenza, high-dose , quadrivalent vaccine (FLUZONE HIGH DOSE QUADRIVALENT) Delores Walker MD Work Phone: [facility] 09-26-2021 influenza virus vacc ine, unspecified formulation Nisa Miranda [facility] 09-26-2021 influenza, high-dose , quadrivalent vaccine (FLUZONE HIGH DOSE QUADRIVALENT) Delores Walker MD Work Phone: [facility] 08-13-2021 SARS-CoV-2 (COVID-19 ) mRNA [id number] vax Nisa Miranda [facility] Comment on above: Result Comment: 2021: [id number] 02-05-2021 SARS-CoV-2 (COVID-19 ) mRNA BNT-162b2 vax Nisa Miranda [facility] 01-14-2021 SARS-CoV-2 (COVID-19 ) mRNA BNT-162b2 vax Nisa Chatmanmetz [facility] 08-16-2018 influenza nasal, unspecified formulation Delores Walker MD Work Phone: [facility] 08-16-2018 influenza virus vacc ine, unspecified formulation Nisa Ruth [facility] 08-16-2018 pneumococcal polysaccharide vaccine, 23 valent Nisa Ruth [facility] 09-18-2016 influenza virus vacc ine, unspecified formulation Nisa Ruth [facility] 09-18-2016 influenza, high dose seasonal, preservative-free Delores Walker MD Work Phone: [facility] 10-17-2015 influenza virus vacc ine, unspecified formulation Nisa Ruth [facility] 10-17-2015 influenza, seasonal, injectable Delores Walker MD Work Phone: [facility] Payers Date Payer Category Payer Unknown [id number] 2023 Medicare [id number] 2022 Medicaid [id number] 2022 Self-pay [id number] 2022 Unknown [id number] 2021 Unknown ANTHEM BLUE CROS S AND BLUE SHIELD SCARLET GUILLERMO O [id number] 2021-[facility] [phone] [address] [place] [address] HMO [id number] 1959 Unknown [id number] 1948 Unknown [id number] 2.16.840.1.269575.3.579.2.593 1948 Unknown [id number] 2.16.840.1.490744.3.579.2.593 1948 Unknown [id number] 2.16.840.1.871737.3.579.2.593 1948 Unknown [id number] 2.16.840.1.286858.3.579.2.593 1948 Unknown [id number] 2.16.840.1.304277.3.579.2.593 1948 Unknown [id number] 2.16.840.1.092093.3.579.2.593 1948 Unknown [id number] 2.16.840.1.124982.3.579.2.356 1948 Unknown [id number] 2.16.840.1.586132.3.579.2.356 1948 Unknown [id number] 2.16.840.1.741853.3.579.2.727 1948 Unknown [id number] 2.16.840.1.405197.3.579.2.727 1948 Unknown [id number] 2.16.840.1.230342.3.579.2.727 1948 Unknown [id number] 2.16.840.1.713328.3.579.2.727 1948 Unknown [id number] 2.16.840.1.862867.3.579.2.727 1948 Unknown [id number] 2.16.840.1.391384.3.579.2.727 1948 Unknown [id number] 2.16.840.1.418019.3.579.2.1259 Medicare [id number] Unknown [id number] 2.16.840.1.684446.3.579.2.531 Unknown [id number] 2.16.840.1.939302.3.579.2.531 Unknown [id number] 2.16.840.1.785466.3.579.2.531 Unknown [id number] 2.16.840.1.510501.3.579.2.531 Unknown [id number] 2.16.840.1.795944.3.579.2.531 Unknown [id number] 2.16.840.1.105757.3.579.2.531 Unknown [id number] 2.16.840.1.928262.3.579.2.531 Social History Date Type Detail Facility Start: 12-26-2017 End: 12-07-2023 Tobacco smoking status KSIS Never smoked tobacco (finding) [facility] Start: 1950 Sex Assigned At Female [facility] Tobacco smoking status Never [facility] Start: 05-01-2023 End: 07-24-2023 Sex Assigned At Female [facility] Start: 09-26-2022 End: 10-01-2022 Tobacco use and exposure Smokeless tobacco non-user [facility] Start: 09-26-2022 Alcohol intake Ex-drinker (finding) [facility] Start: 1950 Sex Assigned At Not on file [facility] History of tobacco use Passive smoker [facility] Start: 10-01-2022 End: 12-08-2023 Alcohol intake Lifetime non-drinker (finding) [facility] Start: 09-21-2022 End: 10-16-2022 Exposure to SARS-CoV-2 (event) Not sure [facility] Start: 05-01-2023 End: 07-24-2023 History of Social function [facility] Goals Date Patient Goal Desired Activity /State Functional Status Date Assessment Result Facility 12-07-2023 Functional Status N/A [facility] 04-15-2023 Functional Status N/A [facility] 03-13-2023 Functional status Patient at Baseline [facility] Work Phone: 03-11-2023 Functional status Disability Sta tus Patient at Baseline [facility] Work Phone: 12-24-2022 Functional Status N/A [facility] 09-02-2022 Functional Status No [facility] 06-12-2022 Functional Status N/A [facility] Mental Status Date Assessment Result Facility 03-13-2023 Cognitive function Cognitive Sta tus Patient at Baseline [facility] Work Phone: Clinical Notes 06-12-2022 to [...] spleen. Follow these instructions at home: Take zcua-wfy-dlsxhjk and prescription medicines only as told by [...] provider. Document Revised: 01/26/2023 Document Reviewed: 01/26/2023 [email or web address] Patient Education 2022 [employer]. Follow Up Care 11/12/2023 09:08:30 With:Nisa Miranda CNP Address: When:3 months [facility] 10-26-2023 Miscellaneous Notes Pt aware of MM message. She denies questions, needs or concerns at this time. Samantha Mcmahan RN ----- Message from Daksha Bridges PA-C sent at 10/26/2023 8:01 AM EST ----- Please call with normal iron levels documented in this encounter [facility] 10-23-2023 Note HNO ID: [id number] Author: Daksha Bridges PA-C Service: ? Author Type: Physician [employer] Communications Sergeant Type: Progress Notes Filed: 10/23/2023 3:25 PM Note Text: PATIENT NAME: [facility] [id number] ATTENDING PHYSICIAN: Delores Walker MD DATE OF [...] (mg/dL) Date Value (more content not included)... [facility] 10-20-2023 Evaluation note Encounter Date Diagnosis Assessment [...] fit. A prescription was sent to [facility] for new supplies throughout the year. She [...] have anemia, she is currently seeing a machinery cleaner and has needed some blood transfusion. They are currently managing this and she may need to see a hand tube bender for kidney issues. Discussed c pt that [...] in a timely fashion. Do not smoke [facility] Other 09-11-2023 Miscellaneous Notes* Telephone Encounter - [...] with normal iron studies documented [facility]-2023 NoteHNO ID: [id number] Author: Daksha Bridges PA-C Service: ? Author Type: Physician [employer] Sergeant Type: Progress Notes Filed: 07/24/2023 2:26 PM Note Text: PATIENT NAME: Anh Tejeda [facility] NO.: [id number] ATTENDING PHYSICIAN: Delores Walker MD DATE OF [...] 07/24/2023 7.0 Albumin ( (more content not included)...[facility]09-08-2023 Miscellaneous Notes* Telephone Encounter - Herminia Diaz RN - 07/24/2023 3:19 PM EDT Call made to Dr. Matta's office. Office was closed for the weekend. Left message on [employer] with message. Labs faxed as requested. Herminia Snider RN * Telephone Encounter - Daksha Bridges [...] sooner. Daksha Bridges PA-C documented in this encounterMary[facility] Hospital09-08-2023 Nurse Note* Beverly Reza MA - 07/24/2023 2:01 PM EDT Patient states that she has been very tired but her neuropathy have been bothering her. Beverly Marcus MA documented in this encounterMarymount Hospital09-08-2023 History of Present illness Narrative* Daksha Bridges PA-C - 07/24/2023 2:00 PM EDT PATIENT NAME: Anh Tejeda [facility] NO.: [id number] ATTENDING PHYSICIAN: Delores Walker MD DATE OF [...] Range Status 07/24/2023 5.9 % Final Abs Angelina Date Value Ref Range Status 07/24/2023 0.39 [...] CC: Nisa Miranda CNP documented in this encounterMarymount Hospital06-19-2023 Miscellaneous Notes* Telephone Encounter - Karlie [...] does not need iron. documented in this encounterMarymount Hospital06-16-2023 NoteHNO ID: [id number] Author: Daksha Bridges PA-C Service: ? Author Type: Physician [employer] Sergeant Type: Progress Notes Filed: 05/01/2023 2:21 PM Note Text: PATIENT NAME: [facility] NO.: [id number] ATTENDING PHYSICIAN: Delores Walker MD DATE OF [...] last visit she did have admission to [facility] in February 2023 for syncope and UTI. [...] a colonoscopy a few weeks ago at [facility]. I do not have any of these [...] HISTORY Procedure Laterality Date COLONOSCOPY EGD W/O [facility] SPEC VARICIES INJ FAMILY HISTORY Problem Relation [...] 05/01/2023 149 Potassium (mmol/L) (more content not included)...[facility] 05-01-2023 History of Present illness Narrative* Daksha Bridges PA-C - 05/01/2023 2:00 PM EDT PATIENT NAME: [facility] NO.: [id number] ATTENDING PHYSICIAN: Delores Walker MD DATE OF [...] last visit she did have admission to [facility] in February 2023for syncope and UTI. She [...] a colonoscopy a few weeks ago at [facility]. I do not have any of these [...] Range Status 05/01/2023 6.0 % Final Abs Angelina Date Value Ref Range Status 05/01/2023 0.44 [...] in 3 months. Will request records from [facility] colonoscopy as well. Chronic kidney disease stage 3b--likely secondary to diabetes. Referral to nephrology recommended and she wishes to discuss to PCP Daksha Bridges PA-C CC: Nisa Miranda CNP documented in this encounterMarymount Hospital04-27-2023 Consult note Author Krissy Easton [facility] March 12, 2023 5:33pm Note Date/Time March 12, 2023 11: 16am [facility] [address] [place] [address] Neurology Consult Note Signed Patient: Anh Tejeda MR#: [id number] : 1950 Acct:[id number] Age/Sex: 72 / F Adm Date: 3 Loc: Room: [address] [place] [address] Type: ADM IN Attending Dr: Kimberly Arteaga MD Copies to: DO Georgina Rubio ANP-MD Krissy Dietz,~ HPI Consult Date: 03/12/23 Automation Software Engineer: Georgina Prieto NP-C with Dr. Easton Reason for consult: Syncope, [...] out of the car to get int he ED. She feels 100% better this afternoon [...] and ulnar nerve compression CEREBELLAR EXAM: * Ohavkh-tu-bxhx and alternating movements are intact and normal in bilateral upper extremities * Aaov-vt-sigk and alternating movements are intact and normal in lower extremities. She has difficulty with xixh-ml-gimc using the right lower extremity due to [...] of dysmetria with good rapid alternating movements wmcgur-xi-dmlj Tone is physiologic Deep tendon reflexes are [...] Riki Garnica M.D.03/12/2023 8:58 AM Dictation Location: RADIO--07 Therapy Recommendations Therapy Recommendations: ST Recommendations Liquid [...] care and confirmed this with the Fellow/Nurse Practitioner/Resident/Mining Technician/Physician [employer] Communications Sergeant as noted below. 72 year old female [...] 1733 <Electronically signed by DENISE Prieto> 03/12/23 1152 [facility] Work Phone: 1(573) 116-754604-27-2023 Progress note Author Kimberly Arteaga [facility] March 12, 2023 4:35pm Note Date/Time March 12, 2023 4:3 2pm [facility] [address] [place] [address] Hospitalist Progress Note Signed Patient: Anh Tejeda MR#: [id number] : 1950 Acct:[id number] Age/Sex: 72 / F Adm Date: 3 Loc: Room: [address] [place] [address] Type: ADM IN Attending Dr: Kimberly Arteaga [...] 03/12/23 15:08 03/12/23 15:08 03/12/23 15:08 03/12/23 15:08 03/12/23 15:08 03/12/23 15:55 Const General: cooperative Orientation: [...] 03/12/23 09:00 03/12/23 08:55 Aspirin 81 Mg Tablet. PO 03/11/24 08:59 81 mg DAILY VALDEZ [...] clearance. Documented By: Kimberly Arteaga MD 03/12/23 1624 Signed By: <Electronically signed by Kimberly Arteaga MD> 03/12/23 1635 [facility] Work Phone: 1(936) 733-342004-26-2023 History and physical note Author Kimberly Arteaga [facility] March 11, 2023 7:01pm Note Date/Time March 11, 2023 6:4 6pm [facility] [address] [place] [address] Hospitalist H&P Signed with Addenda Patient: Anh Tejeda MR#: [id number] : 1950 Acct:[id number] Age/Sex: 72 / F Adm Date: 3 Loc: Room: [address] [place] [address] Type: ADM IN Attending Dr: Kimberly Arteaga MD Copies to: Vinay Matta,DO Kimberly Arteaga MD~ ADDENDUM1 Given the concern for acute stroke I will also give her a loading dose of Plavix. Addendum Documented By: Kimberly Arteaga MD 03/11/23 1900 Addendum Signed By: <Electronically signed by Kimberly Arteaga MD> 03/11/23 1900 HPI DATE OF EXAMINATION: 03/11/23 CHIEF COMPLAINT: [...] negative unless noted below or [facility]?: Yes Medical History (Updated [...] % (Auto) 24.2 % (.) 03/11/23 15:41 Angelina % (Auto) 6.1 % (.) 03/11/23 15:41 Eos % (Auto) 1.4 % (.) 03/11/23 15:41 Baso % (Auto) 0.4 % (.) 03/11/23 15:41 Nucleat RBC Rel Count 0.1 /100 WBC (0-0.5) 03/11/23 15:41 Neut # (Auto) 3.9 x10E3/uL (1.8-7.7) 03/11/23 15:41 Lymph # (Auto) 1.4 x10E3/uL (1.00-4.8) 03/11/23 15:41 Angelina # (Auto) 0.3 x10E3/uL (0.0-0.8) 03/11/23 15:41 [...] pH 5.0 (5.0-9.0) 03/11/23 16:48 Ur Specific [place] 1.020 (1.001-1.030) 03/11/23 16:48 Urine Protein Negative [...] stroke. Documented By: Kimberly Arteaga MD 03/11/23 2788 Signed By: <Electronically signed by Kimberly Arteaga MD> 03/11/23 1856 [facility] Work Phone: 1(348) 538-967203-27-2023 Miscellaneous Notes* Telephone Encounter - Jovanni Cruz RN - 02/09/2023 12:49 PM EDT Informed pt of Daksha's message. Pt verbalized understanding and denies further needs at this time. Jovanni Cruz RN * Telephone Encounter - Jovanni Cruz RN - 02/09/2023 12:48 PM EDT ----- Message from Daksha Bridges PA-C sent at 02/09/2023 7:43 AM EDT ----- Please call with normal iron labs documented in this encounterMary[facility] Hospital03-24-2023 NoteHNO ID: [id number] Author: Daksha Bridges PA-C Service: ? Author Type: Physician [employer] Communications Sergeant Type: Progress Notes Filed: 02/06/2023 2:44 PM Note Text: [id number] ATTENDING PHYSICIAN: Delores Walker MD DATE OF [...] (U/L) Date Value 02/06/2023 (more content not included)...[facility]03-24-2023 History of Present illness Narrative* Daksha Bridges PA-C - 02/06/2023 2:30 PM EDT PATIENT NAME: Anh Tejeda [facility] NO.: [id number] ATTENDING PHYSICIAN: Delores Walker MD DATE OF [...] HISTORY Procedure Laterality Date COLONOSCOPY EGD W/O [facility] SPEC VARICIES INJ FAMILY HISTORY Problem Relation [...] Range Status 02/06/2023 5.7 % Final Abs Angelina Date Value Ref Range Status 02/06/2023 0.37 [...] CC: Nisa Miranda CNP documented in this encounterMarymount Hospital02-08-2023 Hospital Discharge instructions Patient Education 12/24/2022 [...] powder, vinegar, hot sauces, and barbecue sauce. ?Breathitt fruit juices and citrus fruits, such as oranges, myron, and limes. ?Tomato-based foods, such as red sauce, chili, salsa, and pizza with red sauce. ?Fried and fatty foods, such as donuts, cameroonian fries, potato chips, and high-fat dressings. ?High-fat [...] to any changes in your symptoms. Take ciuc-kiy-dbbizhi and prescription medicines only as told by [...] you have new or worsening symptoms. Take qgll-hqj-svqkpnl and prescription medicines only as told by [...] 08/12/2006 Document Revised: 05/11/2019 Document Reviewed: 05/11/2019 [email or web address] Patient Education 2020 [employer]. 12/24/2022 10:15:21 Gastroesophageal Reflux Disease, Adult Gastroesophageal [...] powder, vinegar, hot sauces, and barbecue sauce. ?Breathitt fruit juices and citrus fruits, such as oranges, myron, and limes. ?Tomato-based foods, such as red sauce, chili, salsa, and pizza with red sauce. ?Fried and fatty foods, such as donuts, cameroonian fries, potato chips, and high-fat dressings. ?High-fat [...] to any changes in your symptoms. Take vptl-pmz-ybdragh and prescription medicines only as told by [...] you have new or worsening symptoms. Take jybz-rkb-hhgsfuu and prescription medicines only as told by [...] 08/12/2006 Document Revised: 05/11/2019 Document Reviewed: 05/11/2019 [email or web address] Patient Education 2020 [employer]. Follow Up Care 09/19/2022 13:04:08 With:Nisa Miranda CNP Address: When:3 months [facility] 01-30-2023 Miscellaneous Notes* Telephone Encounter - Jovanni Cruz RN - 12/15/2022 2:30 PM EST Informed pt of Daksha's message. Pt verbalized understanding and denies further needs at this time. Jovanni Cruz RN * Telephone Encounter - Jovanni Cruz RN - 12/15/2022 9:36 AM EST ----- Message from Daksha Bridges PA-C sent at 12/15/2022 8:11 AM EST ----- Please call with normal iron stores. Keep appointments as scheduled documented in this encounterMarymount Hospital01-27-2023 NoteHNO ID: [id number] Author: Daksha Bridges PA-C Service: ? Author Type: Physician [employer] Sergeant Type: Progress Notes Filed: 12/12/2022 2:59 PM Note Text: PATIENT NAME: [facility] NO.: [id number] ATTENDING PHYSICIAN: Delores Walker MD DATE OF [...] 12/12/2022 27 WBC Da (more content not included)...[facility]01-27-2023 History of Present illness Narrative* Daksha Bridges PA-C - 12/12/2022 3:00 PM EST PATIENT NAME: Anh Tejeda CLINIC NO.: [id number] ATTENDING PHYSICIAN: Delores Walker MD DATE OF [...] 12/12/2022 1.24 1.00 - 4.00 k/uL Final Angelina% Date Value Ref Range Status 12/12/2022 5.0 % Final Abs Angelina Date Value Ref Range Status 12/12/2022 0.28 [...] CC: Nisa Miranda CNP documented in this encounterMarymount Hospital12-07-2022 History of Present illness Narrative* MAGUE Bean - 10/22/2022 9:46 AM EST Patient appears on the [facility] First Time Treatment List for a non-oncology treatment. No psychosocial assessment is indicated. ALIA Bean documented in this encounterMarymount Hospital12-01-2022 History of Present illness Narrative* Daksha Bridges PA-C - 10/16/2022 10:30 AM EST PATIENT NAME: Anh Tejeda CLINIC NO.: [id number] ATTENDING PHYSICIAN: Delores Walker MD DATE OF [...] 10/01/2022 1.07 1.00 - 4.00 k/uL Final Angelina% Date Value Ref Range Status 10/01/2022 4.6 % Final Abs Angelina Date Value Ref Range Status 10/01/2022 0.25 [...] venofer with the patient as well. Daksha Bridges PA-C CC: Nisa Miranda CNP documented in this encounterMarymount Hospital11-30-2022 Miscellaneous Notes* Telephone Encounter - Haley Burt - 10/15/2022 10:08 AM EST Patient on 1st time treatment report-non oncology regimen (venofer) Patient holds medicare coverageand no FA available for this treatment. documented in this encounterMarymount Hospital11-29-2022 Evaluation note* Encounter Date Diagnosis Assessment Notes Treatment Notes Treatment Clinical Notes Sep, Obstructive sleep apnea (ICD-10 - G47.33) Fortunately, the patient is using and benefiting from treatment. Download was reviewed with patient, Current pressure is controlling apnea well, And we will make no changes at this time. A prescription was sent to the [facility] for new supplies throughout the year. She [...] in a timely fashion. Do not smoke [employer] Other 11-25-2022 History of Present illness Narrative* MAGUE Bean - 10/10/2022 9:09 AM EST Patient appears on the First Time Treatment List for a non-oncology treatment. No psychosocial assessment is indicated. ALIA Bean documented in this encounterMarymount Hospital11-21-2022 Miscellaneous Notes* Telephone Encounter - Colette [...] us arranging for it documented in this encounterMarymount Hospital11-16-2022 History of Present illness Narrative* Delores Walker MD - 10/01/2022 11:47 AM EST PATIENT NAME: Anh Tejeda [facility] NO.: [id number] ATTENDING PHYSICIAN: Delores Walker MD DATE OF [...] number below. Delores Walker M.D. Hematology/Medical Oncology CC Jarred [phone] CC: Nisa Miranda, SSIS SSRS DEVELOPER documented in this encounterMarymount Hospital10-18-2022 Evaluation + Plan note Future Scheduled Tests Laboratory* B-Type Natriuretic Peptide 09/02/22 * TIBC Calculated 04/23/22 * Ferritin 04/23/22 * Folate Level 04/23/22 * Hepatic Function Panel 04/23/22 * Iron Level 04/23/22 * Magnesium Level 02/04/23 * Reticulocyte Count 04/23/22 * Vitamin B12 Level 04/23/22 [facility]07-28-2022 Hospital Discharge instructions Patient Education 06/12/2022 09:13:55 [...] unsweetened, w/added ascorbic acid 1 cup 0.5 Schley 1 cup 0.7 Vegetables Cooked Green beans 1 cup 4.0 Carrots 1/2 cup sliced 2.3 Peas 1 cup 8.8 Potato (baked, with skin) 1 medium potato 3.8 Raw [place] (with peel) 1 cucumber 1.5 Lettuce 1 [...] 8.7 Peanuts 1/2 cup 7.9 Chart from [facility] 2013. SEEK IMMEDIATE MEDICAL CARE IF: You [...] Reference. Available at http://www.nal.usda.gov/fnic/foodcomp/search/. Information adapted from: [employer] Patient Information 2009 [employer]. [employer] 2012 http://www.YouFastUnlock/contents/csxoleaovpph-vjgjcfx-brngea-the-basics 06/12/2022 09:13:55 Colon Polyps Colon Polyps Polyps [...] 07/29/2005 Document Revised: 02/17/2019 Document Reviewed: 02/17/2019 [email or web address] Patient Education 2020 [employer] 06/12/2022 09:13:55 Colonoscopy, Care After Surgery [facility] (CUSTOM) Colonoscopy Care After Surgery Please read the instructions outlined below and refer to this sheet in the next few weeks. These discharge instructions provide you with general information on caring for yourself [facility] Your doctor may also give you specific [...] day. 06/12/2022 09:13:55 Endoscopy, Care After Procedure [facility] Endoscopy Care After Procedure Please read the instructions outlined below and refer to this sheet in the next few weeks. These discharge instructions provide you with general information on caring for yourself [facility]. Your doctor may also give you specific [...] 06/16/2005 Document Re-Released: 04/26/2007 ExitCare Patient Information 2010 [employer]. Follow Up Care 04/23/2022 14:07:59 With:Jason RUSSELL Address: [address] [place] [address]. [address] [place] [id number] [facility] ([employer] When:1 to 2 weeks Comments:Call for any problems. [facility] summary Author Kimberly Arteaga [facility] March 13, 2023 1:09pm Note Date/Time March 13, 2023 1:0 8pm [facility] [address] [place] [address] Discharge Summary Signed Patient: Anh Tejeda MR#: [id number] : 1950 Acct:[id number] Age/Sex: 72 / F Adm Date: 3 Loc: Room: [address] [place] [address]: Kimberly Arteaga MD Copies to: [...] % (Auto) 62.5, Lymph % (Auto) 28.5, Angelina % (Auto) 6.9, Eos % (Auto) 1.7, Baso % (Auto) 0.4, Nucleat RBC Rel Count 0.1, Neut # (Auto) 3.1, Lymph # (Auto) 1.4, Angelina # (Auto) 0.3, Eos # (Auto) 0.1, [...] <Electronically signed by Kimberly Arteaga MD> 03/13/23 1306 [facility] Work Phone: Evaluation + Plan note Future Appointments Appointment Date:06/12/2022 08:45:00 AM Scheduled Provider: Location:[facility] Appointment Type:Surgery FT Appointment Date:08/18/2022 11:45:00 AM Scheduled Provider:Jose Carlos Mattson MD [facility] Follow Up (FT) Future Scheduled Tests Laboratory* TIBC Calculated 04/23/22 * Ferritin 04/23/22 * Folate Level 04/23/22 * Hepatic Function Panel 04/23/22 * Iron Level 04/23/22 * Reticulocyte Count 04/23/22 * Vitamin B12 Level 04/23/22 [facility] Evaluation + Plan note Future Appointments Appointment Date:08/18/2022 11:45:00 AM Scheduled Provider:Jose Carlos Mattson MD [facility] Type:Cardiology Follow Up (FT) Future Scheduled Tests Laboratory* TIBC Calculated 04/23/22 * Ferritin 04/23/22 * Folate Level 04/23/22 * Hepatic Function Panel 04/23/22 * Iron Level 04/23/22 * Reticulocyte Count 04/23/22 * Vitamin B12 Level 04/23/22 [facility] note Future Appointments Appointment Date:09/19/2022 12:20:00 PM Scheduled Provider:Nisa Miranda CNP Location:[facility] Appointment Type:[facility] Follow Up Future Scheduled Tests Laboratory* B-Type Natriuretic Peptide 09/02/22 * TIBC Calculated 04/23/22 * Ferritin 04/23/22 * Folate Level 04/23/22 * Hepatic Function Panel 04/23/22 * Iron Level 04/23/22 * Reticulocyte Count 04/23/22 * Vitamin B12 [facility]22 [facility]ments Appointment Date:12/24/2022 10:20:00 AM Scheduled Provider:Nisa Miranda CNP Location:[facility] Appointment Type:[facility] Follow Up Future Scheduled Tests Laboratory* B-Type Natriuretic Peptide 09/02/22 * TIBC Calculated 04/23/22 * Ferritin 04/23/22 * Folate Level 04/23/22 * Hepatic Function Panel 04/23/22 * Iron Level 04/23/22 * Reticulocyte Count 04/23/22 * Vitamin B12 Level 04/23/22 [facility] App[facility]ments Appointment Date:02/03/2023 10:00:00 AM Scheduled Provider: [facility] Type:US Abdominal/Pelvis () Appointment Date:03/23/2023 09:20:00 AM Scheduled Provider:Nisa Miranda CNP Location:[facility] Appointment Type:[facility] Follow Up Future Scheduled Tests Laboratory* B-Type [...] 02/03/23 * NM Gastric Emptying Study 12/24/22 [facility] Evaluation + Plan note Future Appointments Appointment Date:02/03/2023 10:00:00 AM Scheduled Provider: [facility] Type:US Abdominal/Pelvis () Appointment Date:03/23/2023 09:20:00 AM Scheduled Provider:Nisa Miranda CNP Location:[facility] Appointment Type:[facility] Follow Up Future Scheduled Tests Laboratory* B-Type [...] B12 Level 12/24/22 Radiology* US Liver 02/03/23 [facility] Future Appointments Appointment Date:04/22/2023 10:00:00 AM Scheduled Provider: Location:[facility] Appointment Type:Surgery FT Future Scheduled Tests Laboratory* B-Type Natriuretic Peptide 09/02/22 * TIBC Calculated 04/23/22 * Ferritin 04/23/22 * Folate Level 04/23/22 * Hepatic Function Panel 04/23/22 * Iron Level 04/23/22 * Magnesium Level 02/04/23 * Reticulocyte Count 04/23/22 * Vitamin B12 Level 04/23/22 [facility] Evaluation + Plan note Future Appointments Appointment Date:01/28/2024 09:00:00 AM Scheduled Provider: Location[facility] Appointment Type:US Abdominal/Pelvis () Appointment Date:02/29/2024 09:20:00 AM Scheduled Provider:Nisa Miranda CNP Location:[facility] Appointment Type:[facility] Follow Up Future Scheduled Tests Laboratory* HCV RNA by PCR, Qn Rfx Arlet 12/08/23 * [id number] 12/08/23 * Ceruloplasmin 12/08/23 * Antimitochondrial Antibody, [...] * Transferrin 12/08/23 Radiology* US Liver 01/28/24 [facility] Evaluation noteNo assessment information available [facility] Work Phone: Evaluation note* Diagnosis Anemia, unspecified type- Primary [facility] Diagnosis Iron deficiency anemia due to chronic blood loss Iron deficiency anemia secondary to blood loss (chronic) [facility]* Diagnosis Anemia, unspecified type- Primary Iron deficiency anemia secondary to inadequate dietary iron intake documented in this encounter [facility] note* Diagnosis Iron deficiency anemia due to chronic blood loss- Primary Iron deficiency anemia secondary to blood loss (chronic) documented in this encounter [facility] note* Diagnosis Iron deficiency anemia due to chronic blood loss- Primary Iron deficiency anemia secondary to blood loss (chronic) documented in this encounter [facility] note* Diagnosis Iron deficiency anemia due to chronic blood loss- Primary Iron deficiency anemia secondary to blood loss (chronic) documented in this encounter [facility] note* Diagnosis Iron deficiency anemia secondary to inadequate dietary iron intake- Primary [facility] Diagnosis Iron deficiency anemia secondary to inadequate dietary iron intake- Primary documented in this encounter [facility] note* Diagnosis Onset Date Resolution Status Acute UTI acute Chronic kidney disease, stage III (moderate) acute Diabetes acute Hypertensive urgency acute Paresthesias in right hand a cute Slurred speech acute Syncope acute [facility] Work Phone: Evaluation note* Diagnosis Iron deficiency anemia secondary to inadequate dietary iron intake- Primary Stage 3b chronic kidney disease (HCC) documented in this encounter [facility] note* Diagnosis Iron deficiency anemia secondary to inadequate dietary iron intake- Primary Stage 3b chronic kidney disease (HCC) documented in this encounter [facility] general Narrative - Reported* Type Description Date Medical History Gastroesophageal ref lux disease, esophagitis presence not specified Medical History RLS (restless legs syndrome) Medical History Benign essential HTN Medical History Hypercholesterolemia Medical History Type 2 diabetes jonathan itus without complication, without long-term current use of insulin Medical History COLTEN (obstructive sleep apnea) Surgical History hysterectomy Surgical History cholecystectomy Surgical History knee arthroscopy [facility] Hospital course Narrative No data available for this section [facility] Hospital Discharge instructions No data available for this section [facility] Progress note No data available for this section [facility] Advance Directives No Advanced Directives Records Found [...] over 90 Minutes, ONCE, 1 dose, On Thu10/16/22 at 1100, Please conduct a 30 minute post dose observation. New Bag/Syringe/Bottle 10/16/2022 10:55 AM EST 300 mg 166.67 mL/hr Inactive Administered Medications - up to 3 most recent administrations Medication Order MAR Action Action Date Dose Rate Site iron sucrose 300 mg in NaCl 0.9% 250 mL (VENOFER) 300 mg, INTRAVENOUS, at 166.67 mL/hr, Administer over 90 Minutes, ONCE, 1 dose, On Thu10/23/22 at 1400, Please conduct a 30 minute post dose observation. New Bag/Syringe/Bottle 10/23/2022 1:45 PM EST 300 mg 166.67 mL/hr Inactive Administered Medications - up to 3 most recent administrations Medication Order MAR Action Action Date Dose Rate Site iron sucrose 300 mg in NaCl 0.9% 250 mL (VENOFER) 300 mg, INTRAVENOUS, at 166.67 mL/hr, Administer over 90 Minutes, ONCE, 1 dose, On Thu10/30/22 at 1330, Please conduct a 30 minute [...] Dates Vinay Matta , DO Primary Care Provider, Attending P jovany Active Team Status: Inactive Member Role Status Dates Vinay Matta , DO Primary Care Provider, Referring P jovany Active Referral Self Attending Provider Active Team Status: Active Member Role Status Dates Vinay Matta , DO Primary Care Provider Active Team Status: Inactive Member Role Status Dates Vinay Matta , DO Primary Care Provider Active Anand Yusuf PA-C Emergency Provider Active Team Status: Inactive Member Role Status Dates Vinay Matta , DO Primary Care Provider Active Anand Yusuf PA-C Attending Provider Active Pin Drafter Operator Relationship Specialty Start Date End Date RuthNisa, [facility] [address] [place] [address] PCP - General Family Medicine 09/22/22 Pin Drafter Operator Relationship Specialty Start Date End Date Ruth Nisa, [facility] [address] [place] [address] PCP - General Family Medicine 09/22/22 Pin Drafter Operator Relationship Specialty Start Date End Date Ruth, Nisa, [facility] [address] [place] [address] PCP - General Family Medicine 09/22/22 Pin Drafter Operator Relationship Specialty Start Date End Date Nisa Miranda, [facility] [address] [place] [address] PCP - General Family Medicine 09/22/22 Team Status: Inactive Member Role Status Dates Vinay Matta , DO Primary Care Provider Active Anh Delcid NP Attending Provider Active Pin Drafter Operator Relationship Specialty Start Date End Date Nisa Miranda CNP [address] [facility] [place] [address] PCP - General Family Medicine 09/22/22 Pin Drafter Operator Relationship Specialty Start Date End Date Nisa Miranda [facility] [address] [facility] [place] [address] PCP - General Family Medicine 09/22/22 Pin Drafter Operator Relationship Specialty Start Date End Date Nisa Miranda CNP [address] [facility] [place] [address] PCP - General Family Medicine 09/22/22 Pin Drafter Operator Relationship Specialty Start Date End Date Nisa [facility] [address] [facility] [place] [address] PCP - General Family Medicine 09/22/22 Pin Drafter Operator Relationship Specialty Start Date End Date Nisa Miranda CNP [address] [facility] [place] [address] PCP - General Family Medicine 09/22/22 Pin Drafter Operator Relationship Specialty Start Date End Date Nisa Miranda [facility] [address] [facility] [place] [address] PCP - General Family Medicine 09/22/22 Team Status: Inactive Member Role Status Dates Vinay Matta , DO Primary Care Provider Active Rafael Edouard MD Attending Provider Active Pin Drafter Operator Relationship Specialty Start Date End Date Nisa Miranda CNP [address] [facility] [place] [address] PCP - General Family Medicine 09/22/22 Team Status: Inactive Member Role Status Dates Vinay Matta , DO Primary Care Provider Active Lamin Rose MD Emergency Provider Active Kimberly Arteaga MD Admit Provider, Attending Provider Active Krissy Easton , DO Other Provider Active Team Status: Active Member Role Status Dates Vinay Matta , DO Primary Care Provider Active LINDY Amato Attending Provider Active Team Status: Inactive Member Role Status Dates Vinay Matta , DO Primary Care Provider Active LINDY Amato Attending Provider Active Pin Drafter Operator Relationship Specialty Start Date End Date Nisa Miranda CNP [address] [place] [address] PCP - General Family Medicine 09/22/22 Pin Drafter Operator Relationship Specialty Start Date End Date Nisa Miranda CNP [address] [place] [address] PCP - General Family Medicine 09/22/22 Pin Drafter Operator Relationship Specialty Start Date End Date Nisa Miranda CNP [address] [place] [address] PCP - General Family Medicine 09/22/22 Pin Drafter Operator Relationship Specialty Start Date End Date Nisa Miranda CNP [address] [place] [address] PCP - General Family Medicine 09/22/22 Goals [...] or prosecute any alcohol or drug abuse patient.[facility] the event this information is protected by the Federal Confidentiality of Alcohol and Drug Abuse Patient Records regulations: The Federal rules restrict any use of the information to criminally investigate or prosecute any alcohol or drug abuse patient.[facility] the event this information is protected by the Federal Confidentiality of Alcohol and Drug Abuse Patient Records regulations: The Federal rules restrict any use of the information to criminally investigate or prosecute any alcohol or drug abuse patient.[facility] the event this information is protected by the Federal Confidentiality of Alcohol and Drug Abuse Patient Records regulations: The Federal rules restrict any use of the information to criminally investigate or prosecute any alcohol or drug abuse patient.[facility] HospitalIn the event this information is protected by the Federal Confidentiality of Alcohol and Drug Abuse Patient Records regulations: The Federal rules restrict any use of the information to criminally investigate or prosecute any alcohol or drug abuse patient.[facility] HospitalIn the event this information is protected by the Federal Confidentiality of Alcohol and Drug Abuse Patient Records regulations: The Federal rules restrict any use of the information to criminally investigate or prosecute any alcohol or drug abuse patient.[facility] HospitalIn the event this information is protected by the Federal Confidentiality of Alcohol and Drug Abuse Patient Records regulations: The Federal rules restrict any use of the information to criminally investigate or prosecute any alcohol or drug abuse patient.[facility] Hospital[facility] the event this information is protected by the Federal Confidentiality of Alcohol and Drug Abuse Patient Records regulations: The Federal rules restrict any use of the information to criminally investigate or prosecute any alcohol or drug abuse patient.[facility] HospitalIn the event this information is protected by the Federal Confidentiality of Alcohol and Drug Abuse Patient Records regulations: The Federal rules restrict any use of the information to criminally investigate or prosecute any alcohol or drug abuse patient.[facility] HospitalIn the event this information is protected by the Federal Confidentiality of Alcohol and Drug Abuse Patient Records regulations: The Federal rules restrict any use of the information to criminally investigate or prosecute any alcohol or drug abuse patient.[facility] HospitalIn the event this information is protected by the Federal Confidentiality of Alcohol and Drug Abuse Patient Records regulations: The Federal rules restrict any use of the information to criminally investigate or prosecute any alcohol or drug abuse patient.[facility] HospitalIn the event this information is protected by the Federal Confidentiality of Alcohol and Drug Abuse Patient Records regulations: The Federal rules restrict any use of the information to criminally investigate or prosecute any alcohol or drug abuse patient.[facility] HospitalIn the event this information is protected by the Federal Confidentiality of Alcohol and Drug Abuse Patient Records regulations: The Federal rules restrict any use of the information to criminally investigate or prosecute any alcohol or drug abuse patient.[facility] HospitalIn the event this information is protected by the Federal Confidentiality of Alcohol and Drug Abuse Patient Records regulations: The Federal rules restrict any use of the information to criminally investigate or prosecute any alcohol or drug abuse patient.[facility] HospitalIn the event this information is protected by the Federal Confidentiality of Alcohol and Drug Abuse Patient Records regulations: The Federal rules restrict any use of the information to criminally investigate or prosecute any alcohol or drug abuse patient.[facility] HospitalIn the event this information is protected by the Federal Confidentiality of Alcohol and Drug Abuse Patient Records regulations: The Federal rules restrict any use of the information to criminally investigate or prosecute any alcohol or drug abuse patient.[facility] HospitalIn the event this information is protected by the Federal Confidentiality of Alcohol and Drug Abuse Patient Records regulations: The Federal rules restrict any use of the information to criminally investigate or prosecute any alcohol or drug abuse patient.[facility] HospitalIn the event this information is protected by the Federal Confidentiality of Alcohol and Drug Abuse Patient Records regulations: The Federal rules restrict any use of the information to criminally investigate or prosecute any alcohol or drug abuse patient.[facility] HospitalIn the event this information is protected by the Federal Confidentiality of Alcohol and Drug Abuse Patient Records regulations: The Federal rules restrict any use of the information to criminally investigate or prosecute any alcohol or drug abuse patient.[facility] HospitalIn the event this information is protected by the Federal Confidentiality of Alcohol and Drug Abuse Patient Records regulations: The Federal rules restrict any use of the information to criminally investigate or prosecute any alcohol or drug abuse patient.[facility] Reason for Visit (unrecogniz ed section and content) Reason Comments Anemia New patient consulta tion Reason Comments Results, Lab Reason Comments Benefits Investigation Reason Comments Anemia Specialty Diagnoses / Procedures Referred By Contangélica t Referred To Contact Diagnoses Iron deficiency anemia due to chronic blood loss Procedures IRON SUCROSE INJECTION PER 1 MG Delores Walker MD [address] [place] [id number] [facility] Jarred [address] [place] [address] Referral ID Status Reason Start Date Expiration Date V isits Requested Visits Authorized [id number] Waiting for Response 10/06/2022 01/04/2023 1 1 Referral ID Status Reason Start Date Expiration Date V isits Requested Visits Authorized [id number] Authorized 10/06/2022 11/15/2022 3 3 Reason Comments Results Reason Comments Anemia 1 month follow up Reason Comments Anemia Follow up Reason Comments Anemia 2 month follow up INFORMATION SOURCE (unrecogn ized section and content) DATE CREATED AUTHOR 03/30/2023 [facility] DATE CREATED AUTHOR AUTHOR'S ORGANIZ ATION 05/12/2023 [facility] DATE CREATED AUTHOR AUTHOR'S ORGANIZ ATION 10/27/2023 [facility] DATE CREATED AUTHOR AUTHOR'S ORGANIZ ATION 11/14/2023 [facility] DATE CREATED AUTHOR AUTHOR'S ORGANIZ ATION 12/25/2023 [facility] DATE CREATED AUTHOR AUTHOR'S ORGANIZ ATION 01/19/2024 [facility] FOR RECORDS PERTAINING TO PATIENTS WHO ARE [...] BE BASED ON THE PRIMARY CLINICAL RECORDS. [employer] provides no warranty or guarantee of the accuracy or completeness of information in this document.
--- NOTE | 2024-01-21 02:04 | PC.NURSE ---
brother at bedside
--- NOTE | 2024-01-21 02:06 | ED.LOWEXI1 ---
HPI - Extremity Injury (Lower) General Chief Complaint: Extremity Injury, Lower Stated Complaint: LEG PAIN Time Seen by Provider: 01/21/24 01:51 Mode of arrival: ambulance History of Present Illness HPI Narrative: patient states she was lying in bed and awakened from her sleep with pain of both legs. States she was crying out in pain. States pain was worse than cramps. Admits now that she is here, her legs are no longer painful Related Data Home Medications Medication Instructions Recorded Confirmed albuterol sulfate 90 mcg/actuation inhalation 01/21/24 aerosol inhaler allopurinol 300 mg tablet mg 01/21/24 atenolol 50 mg tablet mg 01/21/24 atorvastatin 20 mg tablet mg 01/21/24 furosemide 20 mg tablet mg 01/21/24 gabapentin 300 mg capsule mg 01/21/24 glimepiride 2 mg tablet mg 01/21/24 lisinopril 20 tab 01/21/24 mg-hydrochlorothiazide 12.5 mg tablet magnesium oxide 400 mg (241.3 mg mg 01/21/24 magnesium) tablet metformin 1,000 mg tablet mg 01/21/24 ropinirole 2 mg tablet mg 01/21/24 sitagliptin phosphate 50 mg tablet mg 01/21/24 (Januvia) Allergies Allergy/AdvReac Type Severity Reaction Status Date / Time codeine AdvReac Intermediate Verified 01/21/24 01:52 Review of Systems ROS Status of ROS 10 or more systems reviewed and unremarkable except as noted in history and below [facility] Social History Smoking status: Never smoker Exam Constitutional Vital Signs, click to edit/add: Last Vital Signs Temp 98.0 F 01/21/24 01:48 Pulse 89 01/21/24 01:48 Resp 18 01/21/24 01:48 BP 148/81 H 01/21/24 01:48 Pulse Ox 95 01/21/24 01:48 O2 Del Method Room Air 01/21/24 01:48 Common normals: no apparent distress, average body habitus and oriented x3 HENMT Common normals: normocephalic and head/scalp atraumatic Eye Common normals: PERRL, EOMs intact bilaterally and conjunctivae normal Respiratory Common normals: normal respiratory effort, no retractions, no use of accessory muscles and clear to auscultation bilaterally Cardio Common normals: regular rate, regular rhythm, S1 normal heart sound and S2 normal heart sound GI Common normals: Normal to inspection, nondistended, normoactive bowel sounds present and soft to palpation Extremity Common normals: normal to inspection Neuro Common normals: oriented x3, CN's II-XII intact bilaterally, moves all extremities and no focal motor deficits Psych Appearance: grossly normal Course Vital Signs Vital signs: Vital Signs Temperature 98.0 F 01/21/24 01:48 Pulse Rate 89 01/21/24 01:48 Respiratory Rate 18 01/21/24 01:48 Blood Pressure 148/81 H 01/21/24 01:48 Pulse Oximetry 95 01/21/24 01:48 Oxygen Delivery Method Room Air 01/21/24 01:48 Temperature 98.0 F 01/21/24 01:48 Pulse Rate 89 01/21/24 01:48 Respiratory Rate 18 01/21/24 01:48 Blood Pressure 148/81 H 01/21/24 01:48 Pulse Oximetry 95 01/21/24 01:48 Oxygen Delivery Method Room Air 01/21/24 01:48 MDM - Extremity Injury (Lower) MDM Narrative Medical decision making narrative: Patient presents to the ER with leg pain . States the pain woke her up out of her sleep. By the time she arrived here, the pain was resolved. Exam of her legs neg. labs demonstrate anemia, dehydration, CKD, hypomagnesemia and hypokalemia. The subtherapeutic magnesium and potassium was most likely the cause of her leg pain. Each supplemented in the department and patient discharged home .Advised to increase her magnesium supplementation and to have her labs rechecked by her doctor soon Discharge Plan Discharge Chief Complaint: Extremity Injury, Lower Clinical Impression: Hypokalemia, Hypomagnesemia Patient Disposition: Home, Self-Care Prescriptions / Home Meds: No Action atorvastatin 20 mg tablet lisinopril-hydrochlorothiazide 20-12.5 mg tablet glimepiride 2 mg tablet magnesium oxide 400 mg (241.3 mg magnesium) tablet ropinirole 2 mg tablet metformin 1,000 mg tablet gabapentin 300 mg capsule allopurinol 300 mg tablet furosemide 20 mg tablet albuterol sulfate 90 mcg/actuation HFA aerosol inhaler INHALATION atenolol 50 mg tablet Januvia 50 mg tablet Instructions: Hypokalemia (ED), Hypomagnesemia (ED) Additional Instructions: follow up with your doctor in the next couple of days to have your potassium and magnesium rechecked Referrals: VINAY MATTA [Primary Care Provider] - 1 week Stand Alone Forms: Portal Instructions
[2024-01-21 02:25] LABS: Basophils Percent Auto 0.5 % (0.2-2.0); Eosinophils Absolute Auto 0.1 10^3/uL (0.0-0.7); Eosinophils Percent Auto 1.8 % (0.9-7.0); Hematocrit 30.8 % (36.0-48.0); Hemoglobin 9.8 g/dL (12.0-16.0); Immature Granulocytes Abs Auto 0.01 10^3/uL (0.00-0.03); Immature Granulocytes Pct Auto 0.2 % (0.0-0.5); Lymphocytes Absolute Auto 1.5 10^3/uL (1.2-3.8); Mean Corpuscular HGB Conc 31.8 g/dL (29.9-35.2); Mean Corpuscular Hemoglobin 28.3 pg (26.7-34.0); Mean Platelet Volume 9.3 fL (9.5-13.5); Monocytes Absolute Auto 0.4 10^3/uL (0.3-0.8); Monocytes Percent Auto 6.6 % (1.7-12.0); Neutrophils Absolute Auto 4.1 10^3/uL (1.4-6.5); Neutrophils Percent Auto 65.9 % (43.0-75.0); Platelet Count 154 10^3/uL (150-450); Red Blood Count 3.46 10^6/uL (4.20-5.40); Red Cell Distribution Width 16.1 % (11.0-15.0); White Blood Count 6.2 10^3/uL (4.0-11.0)
[2024-01-21 02:36] LABS: Anion Gap 11.7; BUN Creatinine Ratio 21.1; Calcium 8.3 mg/dL (8.5-10.1); Carbon Dioxide 29.7 mmol/L (21.0-32.0); Chloride 105 mmol/L (98-107); Estimated GFR (African America 32 (>=60); Estimated GFR (Non-African Ame 27 (>=60); Glucose 131 mg/dL (74-106); Potassium 3.4 mmol/L (3.5-5.1); Sodium 143 mmol/L (136-145)
[2024-01-21] MEDS: POTASSIUM CHLORIDE 10 MEQ ER TABLET 40 MEQ PO (03:37)
[2024-01-21] MEDS: MAGNESIUM SULFATE IN WATER 2 GM/50 ML PREMIX IV (03:37)
[2024-01-21 04:46] VITALS: BP 162/87; PULSE 88; O2SAT 98
== END 2024-01-21 05:17 | disposition home or self-care (01) ==
PROVIDERS: Emergency Provider Internal Medicine; PCP Family Medicine
DX: E83.42 Hypomagnesemia (principal); E87.6 Hypokalemia; D64.9 Anemia, unspecified; E86.0 Dehydration; N18.9 Chronic kidney disease, unspecified; Z79.899 Other long term (current) drug therapy
CPT/HCPCS: 36415; 80048; 83735; 85025; 96365; 99284

== ENCOUNTER 2024-04-07 01:11 | Emergency (ER) | payer OTHER, SELFPAY ==
[2024-04-07 01:14] VITALS: BP 143/70; PULSE 92; TEMP 36.8; O2SAT 95; BMI 36.0
--- NOTE | 2024-04-07 01:17 | ED_ITS ---
HPI HPI - Back Pain/Injury General Chief Complaint: Back Pain/Injury Stated Complaint: BACK PAIN Time Seen by Provider: 04/07/24 01:16 Source: patient and family (sister) Mode of arrival: ambulance Limitations: no limitations History of Present Illness HPI Narrative: This 73-year-old female with a history of chronic low back pain presents for evaluation of pain and muscle spasm in her anterior thighs. Pain has been present throughout the day but worse tonight upon awakening. She denies any weakness numbness or tingling. She denies any recent falls or injuries. She denies any abdominal pain. She has no focal weakness numbness or tingling. She has not had any loss of bowel or bladder control. She has no chest pain or shortness of breath. She states that she has chronic low back pain and this is unchanged but she was mostly concerned about the pain and muscle spasms in her thighs. She states she had similar symptoms last spring when her potassium and magnesium levels were low. She is on gabapentin stating that that is for her restless legs. Related Data Home Medications ?Medication ?Instructions ?Recorded ?Confirmed allopurinol 300 mg tablet 300 mg PO DAILY 01/21/24 04/07/24 atenolol 50 mg tablet 50 mg PO Q24H 01/21/24 04/07/24 atorvastatin 20 mg tablet 20 mg PO DAILY 01/21/24 04/07/24 furosemide 20 mg tablet 20 mg PO DAILY 01/21/24 04/07/24 gabapentin 300 mg capsule 300 mg PO TID 01/21/24 04/07/24 glimepiride 2 mg tablet 2 mg PO BID 01/21/24 04/07/24 lisinopril 20 1 tab PO DAILY 01/21/24 04/07/24 mg-hydrochlorothiazide 12.5 mg tablet magnesium oxide 400 mg (241.3 mg 400 mg PO DAILY 01/21/24 04/07/24 magnesium) tablet metformin 1,000 mg tablet 1,000 mg PO BID 01/21/24 04/07/24 ropinirole 2 mg tablet 2 mg PO DAILY 01/21/24 04/07/24 sitagliptin phosphate 50 mg tablet 50 mg PO DAILY 01/21/24 04/07/24 (Januvia) ascorbic acid (vitamin C) 500 mg 500 mg PO DAILY 05/23/24 05/23/24 chewable tablet (Acerola C) aspirin 81 mg tablet,delayed 81 mg PO DAILY 04/07/24 04/07/24 release (Adult Low Dose Aspirin) cholecalciferol (vitamin D3) 25 1,000 unit PO DAILY 04/07/24 04/07/24 mcg (1,000 unit) chewable tablet (VitaJoy Daily D) mecobalamin (vitamin B12) 1,000 1,000 mcg PO DAILY 04/07/24 04/07/24 mcg chewable tablet Allergies Allergy/AdvReac Type Severity Reaction Status Date / Time codeine AdvReac Intermediate Verified 04/07/24 01:18 Opioid HPI Opioid Management Most Recent Opioid Data: Last Pain Scale 1 01/21/24 01:56 Review of Systems ROS Status of ROS 10 or more systems reviewed and unremark able except as noted in history and below [facility] Social History Smoking status: Never smoker Exam Narrative Exam Narrative: Vital signs and Nursing Notes reviewed: Blood pressure is noted to be elevated at 143/70, she is not hypoxic with pulse ox of 95% on room air General: Alert, oriented, overweight elderly female, no respiratory distress, she moves easily about the stretcher HEENT: Normocephalic atraumatic, mucous membranes are moist and pink, eyes are clear, normal conjunctiva, vision is grossly intact Chest: Lungs are clear to auscultation with good air entry, there is no wheezing rhonchi or rales appreciated no accessory muscle use, patient is speaking in complete sentences-no chest wall tenderness to palpation CVS: Regular rate and rhythm S1-S2, no murmurs rubs or gallops, pulses are brisk and equal bilaterally ABD: Obese, soft, nondistended, nontender, no rebound guarding or rigidity, bowel sounds are normal, no pulsatile masses appreciated Extremities: Moving all extremities, no extremity shortening or notable deformity is noted to either thigh or lower leg. There is no calf swelling or tenderness. Nonthrombosed varicose veins are present on the lower legs bilaterally. Pulses are brisk and equal bilaterally. Feet are warm and sensate. There is no reproducible lumbar tenderness, muscle spasm or midline bony vertebral tenderness or step-off. Skin: Normal in appearance without rash,pallor, petechiae or purpura Neuro: No focal deficits Constitutional Vital Signs, click to edit/add: Last Vital Signs Temp 98.3 F 04/07/24 01:14 Pulse 88 04/07/24 03:20 Resp 18 04/07/24 03:20 BP 131/69 04/07/24 03:20 Pulse Ox 93 L 04/07/24 03:20 O2 Del Method Room Air 04/07/24 01:14 Course Vital Signs Vital signs: Vital Signs Temperature 98.3 F 04/07/24 01:14 Pulse Rate 92 H 04/07/24 01:14 Respiratory Rate 18 04/07/24 01:14 Blood Pressure 143/70 H 04/07/24 01:14 Pulse Oximetry 95 04/07/24 01:14 Oxygen Delivery Method Room Air 04/07/24 01:14 Temperature 98.3 F 04/07/24 01:14 Pulse Rate 88 04/07/24 03:20 Respiratory Rate 18 04/07/24 03:20 Blood Pressure 131/69 04/07/24 03:20 Pulse Oximetry 93 L 04/07/24 03:20 Oxygen Delivery Method Room Air 04/07/24 01:14 MDM - Back Pain/Injury MDM Narrative Medical decision making narrative: This 73-year-old female with history of diabetes and chronic renal insufficiency who also has restless leg syndrome presents for evaluation of pain and muscle spasms in both anterior thighs. She states she had similar symptoms in the past when her potassium and magnesium were low. She states she has been taking supplemental potassium but only 100 to 150 mg each. She also has chronic back pain. She declined the need for any pain medication upon arrival including Tylenol. An IV was placed and she was medicated with IV fluids and routine labs were ordered. She has a normal white count. Her hemoglobin is mildly low at 10.1. Comprehensive metabolic profile was also ordered. Her sodium is low at 129. She is on 2 diuretic medications; Lisinopril/HCTZ and lasix. Her potassium is low but within normal limits at 3.6. BUN and Creatinine are elevated compared to her baseline at 46 and 2.14 respectively. Glucose is elevated at 184 and magnesium is low at 1.1. Results of her labs were discussed with her. I suggested that she withhold taking the lisinopril hydrochlorothiazide until she is seen in follow-up by Nephrology, which is supposed to happen next month and continue her Lasix. She will be given 2 g of IV magnesium in the emergency department and discharged home prescription for Mag-Ox 400 mg. She was re-evaluated after her IVF and magnesium and remains pain free. Lab Data Labs: Lab Results 04/07/24 Range/Units 01:45 WBC 4.9 (4.0-11.0) 10^3/uL RBC 3.40 L (4.20-5.40) 10^6/uL Hgb 10.1 L (12.0-16.0) g/dL Hct 31.0 L (36.0-48.0) % MCV 91.2 (81.0-99.0) fL MCH 29.7 (26.7-34.0) pg MCHC 32.6 (29.9-35.2) g/dL RDW 16.5 H (11.0-15.0) % Plt Count 130 L (150-450) 10^3/uL MPV 9.3 L (9.5-13.5) fL Neut % (Auto) 59.5 (43.0-75.0) % Lymph % (Auto) 31.2 (20.5-60.0) % [place] % (Auto) 6.5 (1.7-12.0) % Eos % (Auto) 2.4 (0.9-7.0) % Baso % (Auto) 0.2 (0.2-2.0) % Neut # (Auto) 2.9 (1.4-6.5) 10^3/uL Lymph # (Auto) 1.5 (1.2-3.8) 10^3/uL [place] # (Auto) 0.3 (0.3-0.8) 10^3/uL Eos # (Auto) 0.1 (0.0-0.7) 10^3/uL Baso # (Auto) 0.0 (0.0-0.1) 10^3/uL Abs Immat Gran (auto) 0.01 (0.00-0.03) 10^3/uL Imm/Tot Granulo (auto) 0.2 (0.0-0.5) % Sodium 129 L (136-145) mmol/L Potassium 3.6 (3.5-5.1) mmol/L Chloride 94 L (98-107) mmol/L Carbon Dioxide 28.7 (21.0-32.0) mmol/L Anion Gap 9.9 BUN 46.0 H (7.0-18.0) mg/dL Creatinine 2.14 H (0.55-1.02) mg/dL Est GFR ( Amer) 27 L (>=60) Est GFR (Non-Af Amer) 22 L (>=60) BUN/Creatinine Ratio 21.5 Glucose 184 H (74-106) mg/dL Calcium 8.5 (8.5-10.1) mg/dL Magnesium 1.1 L (1.8-2.4) mg/dL Total Bilirubin 0.3 (0.2-1.0) mg/dL AST 32 (15-37) U/L ALT 33 (14-59) U/L Alkaline Phosphatase 146 H (46-116) U/L Total Protein 6.5 (6.4-8.2) g/dL Albumin 3.4 (3.4-5.0) g/dL Globulin 3.1 g/dL Albumin/Globulin Ratio 1.1 Discharge Plan Discharge Stand Alone Forms: Portal Instructions Chief Complaint: Back Pain/Injury Clinical Impression: Hyponatremia, Chronic renal disease, Bilateral leg cramps, Hypomagnesemia Patient Disposition: Home, Self-Care Time of Disposition Decision: 03:28 Condition: Good Prescriptions / Home Meds: No Action aspirin [Adult Low Dose Aspirin] 81 mg tablet,delayed release (DR/EC) 81 mg PO DAILY mecobalamin (vitamin B12) 1,000 mcg tablet,chewable 1,000 mcg PO DAILY cholecalciferol (vitamin D3) [VitaJoy Daily D] 25 mcg (1,000 unit) tablet,chewable 1,000 unit PO DAILY ascorbic acid (vitamin C) [Acerola C] 500 mg tablet,chewable 500 mg PO DAILY atorvastatin 20 mg tablet 20 mg PO DAILY lisinopril-hydrochlorothiazide 20-12.5 mg tablet 1 tab PO DAILY glimepiride 2 mg tablet 2 mg PO BID magnesium oxide 400 mg (241.3 mg magnesium) tablet 400 mg PO DAILY ropinirole 2 mg tablet 2 mg PO DAILY metformin 1,000 mg tablet 1,000 mg PO BID gabapentin 300 mg capsule 300 mg PO TID allopurinol 300 mg tablet 300 mg PO DAILY furosemide 20 mg tablet 20 mg PO DAILY atenolol 50 mg tablet 50 mg PO Q24H Januvia 50 mg tablet 50 mg PO DAILY Print Language: Czech Instructions: Chronic Kidney Disease (ED), Hyponatremia (ED), Leg Cramps (ED), Hypomagnesemia (ED), Muscle Cramp (ED) Referrals: VINAY MATTA [Primary Care Provider] - 1 week
--- OUTSIDE RECORDS SUMMARY | 2024-04-07 01:18 | XMS_ITS | CCD ---
Author Organization [facility] Care Team Providers Care Certified [place] Reporter Name Role Phone Vinay Matta Primary Care Provider [phone] Bunting, Vinay Attending Provider VINAY MATTA R Primary Care Physician Bunting, DO Vinay Primary Care Provider Bunting, DO Vinay Attending Provider Bunting, DO Vinay Referring Provider Self, Referral Attending Provider Unavailable Bunting, DO Vinay Primary Care Provider Bunting, DO Vinay Attending Provider [phone] TROY Yusuf Emergency Provider TROY Yusuf Attending Provider Ruth [facility] Primary Care Provider Ruth [facility] Primary Care Provider Bunting, DO Vinay Primary Care Provider TROY Yusuf Emergency Provider TROY Yusuf Attending Provider Bunting, DO Vinay Attending Provider STARR Delcid Attending Provider Anh Delcid Unavailable Bunting, DO Vinay Primary Care Provider MD Rafael Edouard Attending Provider Bunting, DO Vinay Primary Care Provider MD Rafael Edouard Attending Provider Bunting, DO Vinay Attending Provider MD Lamin Rose Emergency Provider MD Kimberly Arteaga Admit Provider MD Kimberly Arteaga Attending Provider DO Krissy Easton Other Provider Conner [facility] Queta Attending Provider BUNTING, DR MCLEAN Admitting Unavailable BUNTING, DR [...] Unavailable MISC, DR BERGER Admitting Unavailable MISC, DOCTOR Attending Unavailable BUNTING, DR MCLEAN Primary Care Unavailable MISC, DOCTOR Consulting Unavailable Bunting, DO Mclean Primary Care Provider [phone] Bunting, DO Ratliffrin Attending Provider [phone] Bunting, DO Mclean Primary Care Provider [phone] Bunting, DO Ivnay Attending Provider [phone] Delcid, STARR Anh Attending Provider Bunting, DO Vinay Primary Care Provider Bunting, DO Vinay Attending Provider Bunting, Vinay Primary Care Unavailable Bunting, Vinay Referring Unavailable Bunting, Vinay Consulting Unavailable Trudy Weiss Attending Unavailable Trudy Weiss Admitting Unavailable WindnaQueta wayne Admitting Unavailable Bunting, Vinay Primary Care Unavailable WindnaQueta wayne Attending Unavailable Delcid, Anh Attending Unavailable Delcid, Anh Admitting Unavailable Bunting, Vinay Primary Care Unavailable Bunting, Vinay Primary Care Unavailable Krissy Easton Unavailable Kimberly Arteaga Attending Unavailable ArteagaKimberly gan Admitting Unavailable Bunting, Vinay Admitting Unavailable Bunting, Vinay Attending Unavailable Bunting, Vinay Primary Care Unavailable Bunting, Vinay Primary Care Unavailable Bunting, Vinay Admitting Unavailable Bunting, Vinay Attending Unavailable CYRUS, DAKSHA M Referring Unavailable RUTH, NISA Primary Care Unavailable CYRUS, DAKSHA M Referring Unavailable CYRUS, DAKSHA M Attending Unavailable RUTH, NISA Primary Care Unavailable RUTH, NISA Primary Care Unavailable RUTH, NISA Primary Care Unavailable ABHYANKAR, BELKIS Referring Unavailable CYRUS, DAKSHA M Attending Unavailable ABHYANKAR, BELKIS Referring Unavailable RUTH, NISA Primary Care Unavailable ABHYANKAR, BELKIS Referring Unavailable RUTH, NISA Primary Care Unavailable CYRUS, DAKSHA M Attending Unavailable ABHYANKAR, BELKIS Referring Unavailable RUTH, NISA Primary Care Unavailable ABHYANKAR, BELKIS Referring Unavailable RUTH, NISA Primary Care Unavailable CYRUS, DAKSHA M Attending Unavailable ABHYANKAR, BELKIS Referring Unavailable RUTH, NISA Primary Care Unavailable RUTH, NISA Primary Care Unavailable CYRUS, DAKSHA M Referring Unavailable RUTH, NISA Primary Care Unavailable CYRUS, DAKSHA M Referring Unavailable RYAN, TAD A Attending Unavailable JAYLIN AMES Attending Unavailable BROWNKATARZYNA A Attending Unavailable BROWN, KATARZYNA A Referring Unavailable KATARZYNA NUÑEZ A Attending Unavailable QUETA PRIETO Attending Unavailable SALAM, Gomez Attending Unavailable BUNTING, VINAY R Attending Unavailable BUNTING, VINAY R Admitting Unavailable Mouchli, Kyleed A. Attending Unavailable Mouchli, Mohamad A. Attending Unavailable Ruth, Nisa A Attending Unavailable NONE, XXXX Referring Unavailable SALAM, Gomez Attending Unavailable SALAM, Gomez Admitting Unavailable Ruth, Nisa A Admitting Unavailable Ruth, Nisa A Referring Unavailable Ruth, Nisa A Attending Unavailable Unavailable Unavailable Unavailable Allergies Allergy Classification Reported Allergen(s) Allergy Type Date of Onset Reaction(s) Facility (20 sources) Acetaminophen / Codeine; Translations: [acetaminophen-co deine] Drug Allergy [id number] 2 Upset stomach (finding), Other: See Comments [facility] Comment on above: pt states she is unw illing to try even plain tylenol after this experience even though she states she took tylenol prior to this and had no problems (20 sources) Codeine; Translations: [codeine] Drug Allergy 7 Other: See Comments [facility] (3 sources) Acetaminophen / Codeine; Translations: [Tylenol with Codeine #3] Drug Allergy Unknown [facility] (1 source) traMADol Drug Allergy [facility] Repository (2 sources) Acetaminophen; Translations: [acetaminophen] Drug Allergy 3 [facility] (1 source) Acetaminophen / Codeine; Translations: [ACETAMINOPHEN-CO DEINE] Drug Allergy 2 [facility] Rep[facility] Medications Current Medications Medication Drug Class(es) Dates Sig (Normalized) Sig (Original) allopurinol 100 mg oral tablet (20 sources) Xanthine Oxidase Inhibitor Start: 01-21-2022 take 1 tablet by mouth twice daily allopurinol 100 mg Tab 100 mg = 1 tab(s), Oral, BID, # 60 tab(s), Refills(s) 0, Pharmacy: [facility], 165, cm, 01/19/22 22:12:00 EST, Height/Length Dosing, 90, kg, 01/19/22 22:12:00 EST, Weight Dosing Start Date: 01/21/22 Status: Ordered take 1 tablet by mouth once elizabeth y allopurinol (ZYLOPRIM) 100 mg tablet Take 100 mg by mouth once daily. 0 Active Comment on above: Take 100 mg by mouth once daily. ascorbic acid 500 mg oral tablet (19 sources) Vitamin C Start: 01-20-2022 take 1 [...] Daily, # 30 tab(s), Refills(s) 0, Pharmacy: [facility], 165, cm, 01/19/22 22:12:00 EST, Height/Length Dosing, 90, kg, 01/19/22 22:12:00 EST, Weight Dosing Start Date: 01/21/22 Status: Ordered Start: 01-21-2022 take 81 mg by mouth once daily Aspirin Active 81 MG PO Daily March 11, 2023 12:00am Comment on above: Take 81 mg by mouth once daily. atenolol 50 mg oral tablet (20 sources) beta-Adrenergic Mervat Start: 12-26-2017 take 1 tablet by mouth once daily atenolol 50 mg Tab 50 mg = 1 tab(s), Oral, Daily, # 30 tab(s), Refills(s) 0, Pharmacy: [facility], 165, cm, 01/19/22 22:12:00 EST, Height/Length [...] Biotin Active cephalexin 500 mg oral capsule (15 sources) Cephalosporin Antibacterial Start: 3 take 500 mg by mouth twice daily Cephalexin Active 500 MG PO Twice daily 10 March 13, 2023 12:00am Start: 07-22-2022 End: 12-29-2022 take 500 mg by mouth every eight hours Cephalexin Discontinued 500 MG PO Q8H 05 06July 22, 2022 12:00am December 29, 2022 2:20pm cholecalciferol 0.025 mg oral tablet (20 sources) [...] once daily. ergocalciferol 0.2 mg/ml oral solution (5 sources) Provitamin D2 Compound Start: 03-11-20 take 200 ug by mouth once daily Ergocalciferol (Vitamin D2) Active 200 MCG PO Daily March 11, 2023 12:00am furosemide 20 mg oral tablet (20 sources) [...] 900 MG PO Bedtime December 26, 2017 1:00am Start: 12-26-2017 take 300 mg by mouth three times daily Gabapentin Active 300 MG PO Three times daily December 26, 2017 12:00am take 1 capsule by mo [facility] once daily at bedtime gabapentin (NEURONTIN) 300 mg capsule Take 300 mg by mouth daily at bedtime. 0 Active Gabapentin Activ e Comment on above: Take 300 mg by mouth daily at bedtime. glimepiride 2 mg oral tablet (20 sources) Sulfonylurea Start: take 1 tablet by mouth twice daily [...] tab(s), Oral, Daily, 30 tab(s), Refill(s) 0, [facility], 165, cm, 01/19/22 22:12:00 EST, Height/Length Dosing, 90, kg, 01/19/22 22:12:00 EST, Weight Dosing Start Date: 01/21/22 Status: Ordered take 10-12.5 mg by mouth once li sinopril-hydroCHLOROthiazide (PRINZIDE,ZESTORETIC) 10-12.5 mg per tablet Take 1 tablet by mouth once daily. 0 Active Lisinopril-hydro CHLOROthiazide Active Comment on above: Take 1 tablet by oleg th once daily. Magnesium (1 source) Start: 03-28-2024 Magnesium Magnesium Start Date: 03/28/24 Status: Ordered metFORMIN hydrochloride 1000 mg oral tablet (20 [...] (Prilosec Otc) 20 mg Tablet,Delayed Release (Dr/Ec) (6 sources) Start: 12-26-2017 take 1 tablet by [...] PO Daily at bedtime December 29, 2022 1:00am Start: 01-21-2022 take 2 tablets by mo [facility] at bedtime ropinirole 0.5 mg Tab 1 [...] twice daily. SITagliptin 50 mg oral tablet (12 sources) Dipeptidyl Peptidase 4 Inhibitor Start: 12-07-2023 Januvia 50 mg Tab Refills(s) 0 Start Date: 12/07/23 Status: Ordered Start: 09-15-2023 take 1 tablet by mouth once JA JUDI 50 mg tablet Take 1 tablet by mouth every afternoon. 0 09/15/2023 Active Januvia 50 MG as directed Orally Active Comment on above: Take 1 tablet by oleg th every afternoon. vitamin B12 (16 sources) Vitamin B12 Start: 04-15-2023 Vitamin B12 Refills(s) 0 Start Date: 04/15/23 Status: Ordered Start: 03-13-2023 take 1 tablet by oleg th once daily Cyanocobalamin (Vitamin B-12) (Vitamin B-12) 1,000 mcg Tablet Active 1000 MCG PO Daily March 13, 2023 12:00am Start: 03-11-2023 End: 03-13-2023 take 1 tablet by mouth once daily Cyanocobalamin (Vitamin B-12) (Vitamin B-12) 50 mcg Tablet Discontinued 50 MCG PO Daily March 11, 2023 12:00am March 13, 2023 9:52am Vitamin D3 (2 sources) Vitamin D3 Activ e Completed/Discontinued Medications Medication Drug Class(es) Dates Sig (Normalized) Sig (Original) [id number] 200 actuat albuterol 0.09 mg/actuat metered dose inhaler (19 sources) beta2-Adrenergic Agonist Start: 10-12-2023 take 2 [...] once daily. benzonatate 200 mg oral capsule (12 sources) Non-narcotic Antitussive Start: 8 End: 3 take 200 mg by mouth twice daily Benzonatate Discontinued 200 MG PO Twice daily December 26, 2017 1:00am December 29, 2022 2:19pm calcium carbonate 250 mg / magnesium carbonate 300 mg oral tablet (18 sources) Start: 3 Calcium Carb-Magnesium Carb 250-300 mg tab Take by mouth. 0 02/04/2023 Active Start: 02-04-2023 MagneBind 300 oral tablet 1 tab(s), Oral, Daily, 150 tab(s), Refill(s) 0, [facility], 160, cm, 12/24/22 10:14:00 EST, Height/Length Dosing, 97.2, kg, 12/24/22 10:14:00 EST, Weight Dosing Start Date: 02/04/23 Status: Ordered Comment on above: Take by mouth. cefdinir 300 mg oral capsule (14 sources) Cephalosporin Antibacterial Start: 8 End: 3 take 300 mg by mouth every twelve hours Cefdinir Discontinued 300 MG PO Q12H December 26, 2017 1:00am December 29, 2022 2:20pm Cefdinir Not-Korey ing codeine phosphate 2 mg/ml / promethazine hydrochloride 1.25 mg/ml oral solution (12 sources) Opioid Agonist, Phenothiazine Start: 12-26-2017 End: 12-29-2022 take 1 mL by mouth every four hours Promethazine-Codeine Discontinued 5 ML PO Q4H 120 December 26, 2017 1:00am December 29, 2022 2:21pm diclofenac sodium 75 mg delayed release oral tablet (20 sources) Nonsteroidal Anti-inflammatory Drug Start: 12-29-2022 End: 03-13-2023 take 75 mg by mouth twice daily Diclofenac Sodium Discontinued 75 MG PO Twice daily December 29, 2022 1:00am March 13, 2023 9:47am Start: 04-23-2022 take 1 tablet by oleg [...] daily. doxycycline monohydrate 100 mg oral capsule (12 sources) Tetracycline-class Drug Start: 8 End: take 100 mg by mouth twice daily Doxycycline Monohydrate Discontinued 100 MG PO Twice daily December 26, 2017 1:00am December 29, 2022 2:20pm ferrous sulfate 325 mg oral tablet (3 sources) End: ferrous sulfate 325 mg (65 mg iron) tablet Take 325 mg by mouth. 0 07/24/2023 Discontinued Comment on above: Take 325 mg by mouth . fluticasone propionate 0.05 mg/actuat metered dose nasal spray (14 sources) Corticosteroid Start: take 1 spray(s) nasal route once daily Fluticasone Propionate 50 MCG/ACT 1 spray in each nostril Nasally Once a day for 21 days Feb, Not-Taking Start: 12-26-2017 End: 12-29-2022 Fluticasone Propionate Disco ntinued 1 SPRAY INTRANASAL Daily December 26, 2017 1:00am December 29, 2022 2:20pm Honey (Medihoney (Honey)) 10 0 % paste (6 sources) Start: 12-29-2022 End: 03-11-2023 Honey (Medihoney (Honey)) 10 0 % paste Discontinued 1 APPLIC TOPICAL Twice daily December 29, 2022 12:00am March 11, 2023 4:44pm Start: 12-29-2022 End: 03-11-2023 Honey (Lakiahoney (Honey)) 10 0 % paste Discontinued 1 APPLIC TOPICAL Twice daily December 29, 2022 1:00am March 11, 2023 5:44pm Start: 12-29-2022 Honey (Mane wiley (Honey)) 100 % paste Active 1 APPLIC TOPICAL Twice daily December 29, 2022 12:00am Magnesium Oxide (14 sources) Start: 02-03-2023 take 1 tablet by [...] once daily. LOCO, HONEY, 100 % pste (16 sources) Start: 12-01-2022 JEN ADAN, 100 % pste APPLY A THIN LAYER TWICE DAILY 0 12/01/2022 Active Comment on above: APPLY A THIN LAYER T WICE DAILY predniSONE 20 mg oral tablet (2 sources) Start: 10-20-2023 End: 01-29-2024 take 2 tablets by mouth once daily, then take 1 tablet by mouth once daily, then take 0.5 tablet by mouth once daily predniSONE (DELTASONE) 20 mg tablet TAKE 2 TABLETS BY MOUTH DAILY FOR 2 DAYS THEN TAKE 1 TABLET BY MOUTH DAILY FOR 2 DAYS THEN TAKE ONE-HALF TABLET BY MOUTH DAILY FOR 2 DAYS 0 10/20/2023 01/29/2024 Discontinued (Course of therapy completed) Comment on above: TAKE 2 TABLETS BY MO UTH DAILY FOR 2 DAYS THEN TAKE 1 TABLET BY MOUTH DAILY FOR 2 DAYS THEN TAKE ONE-HALF TABLET BY MOUTH DAILY FOR 2 DAYS Vitamin D (2 sources) Vitamin D Not-Ta celine Problems Active Problems Problem Classification Problem Date Documented Da te Episodic/Chronic Acute and unspecified renal failure (11 sources) Injury of kidney; Translations: [Acute kidney failure, unspecified] Onset: 3 07-22-2022 Episodic Acute bronchitis (12 sources) Acute bronchitis; Translations: [Acute bronchitis, unspecified] 12-26-2017 Episodic Anal and rectal conditions (9 sources) Rectal polyp 11-04-2022 Episodic Chronic kidney disease (16 sources) Chronic kidney disease stage 3; Translations: [Stage 3 chronic kidney disease] Onset: 4 03-11-2023 Chronic Chronic kidney disease (2 sources) Chronic kidney disease; Translations: [Chronic kidney disease, stage 3 unspecified] Onset: 3 Deficiency and other anemia (2 sources) Anemia due to chronic blood loss; Translations: [Iron deficiency anemia secondary to blood loss (chronic)] Onset: 2 Chronic Deficiency and other anemia (12 sources) Anemia due to blood loss 04-23-2022 Chronic Deficiency and other anemia (20 sources) Iron deficiency anemia due to blood loss; Translations: [Iron deficiency anemia secondary to blood loss (chronic)] Onset: 2 Chronic Deficiency and other anemia (4 sources) Iron deficiency anemia secondary to blood loss (chronic); Translations: [IRON DEFIC ANEMIA SEC BLD LOSS CHRN] Onset: 2 Chronic Deficiency and other anemia (18 sources) Anemia; Translations: [Anemia, unspecified] Onset: 2 04-23-2022 Episodic Deficiency and other anemia (6 sources) Iron deficiency anemia secondary to inadequate [...] Onset: 2 Chronic Disorders of lipid metabolism (20 sources) Hyperlipidemia; Translations: [Hyperlipidemia, unspecified] Onset: 2 01-21-2022 Chronic Diverticulosis and diverticulitis (9 sources) Diverticular disease 09-19-2022 Chronic Esophageal disorders (19 sources) Gastroesophageal reflux disease without esophagitis; Translations: [Gastro-esophageal reflux disease without esophagitis] Onset: 2 Chronic Essential hypertension (2 sources) Essential hypertension; Translations: [Essential (primary) hypertension] Chronic Hemorrhoids (9 sources) Hemorrhoids 09-19-2022 Episodic Hypertension with complications and secondary hypertension (9 sources) Hypertensive urgency ; Translations: [Hypertensive urgency] Onset: 3 03-11-2023 Chronic Nausea and vomiting (9 sources) Nausea; Translations: [Nausea] Onset: 3 Episodic Nutritional deficiencies (9 sources) Vitamin B deficiency; Translations: [Deficiency of other specified B group vitamins] Onset: 3 Episodic Other and unspecified benign neoplasm (9 sources) Gastric polyp 09-19-2022 Episodic Other and unspecified benign neoplasm (8 sources) History of polyp of colon 12-24-2022 Episodic Other gastrointestinal disorders (2 sources) H/O: gastrointestinal disease; Translations: [Personal history of other diseases of the digestive system] Onset: 3 Episodic Other hereditary and degenerative nervous system conditions (14 sources) Restless legs; Translations: [Restless legs syndrome] Onset: 2 04-23-2022 Chronic Other hereditary and degenerative nervous system conditions (2 sources) Restless legs syndrome Chronic Other liver diseases (8 sources) Steatosis of liver; Translations: [Fatty (change of) liver, not elsewhere classified] Onset: 3 Chronic Other liver diseases (2 sources) Hepatic fibrosis; Translations: [Hepatic fibrosis, unspecified] Onset: 4 Chronic Other liver diseases (1 source) Enzyme level - finding; Translations: [Abnormal levels of other serum enzymes] Onset: 3 Episodic Other liver diseases (8 sources) Alkaline phosphatase raised 12-24-2022 Episodic Other nervous system disorders (12 sources) Polyneuropathy Onset: 2 04-23-2022 Chronic Other nervous system disorders (5 sources) Paresthesia of hand ; Translations: [Paresthesia [...] Chronic Other nutritional; endocrine; and metabolic disorders (6 sources) Hypomagnesemia 04-15-2023 Chronic Other nutritional; endocrine; and metabolic disorders (2 sources) Metabolic syndrome X; Translations: [Metabolic syndrome] Onset: 4 Chronic Other nutritional; endocrine; and metabolic disorders (1 source) Obesity; Translations: [Other obesity due to excess calories] Onset: 4 Chronic Other nutritional; endocrine; and metabolic disorders (1 source) Obesity caused by energy imbalance 03-28-2024 Chronic Other nutritional; endocrine; and metabolic disorders (1 source) Abnormal weight loss; Translations: [Abnormal weight loss] Onset: 4 Episodic Other nutritional; endocrine; and metabolic disorders (1 source) Weight loss 03-28-2024 Episodic Other screening for suspected conditions (not mental [...] Classification Problem Date Documented Da te Episodic/Chronic Diabetes mellitus without complication (1 source) Impaired fasting glucose; Translations: [IMPAIRED FASTING GLUCOSE] Onset: 09-10-2022 Episodic Other aftercare (1 source) Other emt intermediate (current) drug therapy; Translations: [OTH [facility] CURRENT DRUG THERAPY] Onset: 09-10-2022 Episodic Other lower respiratory disease (4 sources) Shortness of breath; Translations: [SHORTNESS OF BREATH] Onset: 09-09-2022 Episodic Other nervous system disorders (6 sources) Slurred speech; Translations: [Slurred speech] Onset: 03-11-2023 03-11-2023 Episodic Other nervous system disorders (3 sources) Paresthesia of skin; Translations: [Disturbance of skin sensation] Onset: 03-11-2023 03-13-2023 Episodic Syncope (10 sources) Syncope; Translations: [Syncope and collapse] Onset: 03-11-2023 03-11-2023 Episodic Urinary tract infections (13 sources) Acute urinary tract infection; Translations: [Urinary tract infection, site not specified] Onset: 03-11-2023 07-22-2022 Episodic Results Test Name Value Interpretation Reference Range Facility Pre-Certification Formon Pre-Certification Form [id number] [facility] Ambulatory Visit Summaryon 0 03-28-2024 Ambulatory Visit Summary ANH TEJEDA :1950 Visit Date:03/28/2024 Ambulatory Visit Instructions Your Diagnosis Liver fibrosis Weight loss Anemia Chronic GERD Diabetes Metabolic syndrome Obesity due to excess calories Your Care Team Attending Physician - Verónica Ugarte MD Primary Care Physician - VINAY MATTA DO This Is Your Medications List Contact prescribing physician if questions or concerns Non-Formulary Medication (Magnesium) allopurinol (allopurinol 100 mg Tab) ascorbic acid [...] mg Cap-DR) ropinirole (ropinirole 0.5 mg Tab) sitagliptin (Januvia 50 mg Tab) Procedures Performed Carpal tunnel (02/29/2024), Colonoscopy (06/12/2022), Esophagogastroduodenoscopy (06/12/2022), Scar management. Discharge Vitals Heart Rate (Peripheral) 80 Respiratory Rate 16 Blood Pressure 126/75 Height 160 cm Height 63 in Weight 96 kg Weight 211.2 lb BMI 37.5 Medications What How Much When Instructions Unchanged allopurinol (allopurinol 100 mg Tab) 1 Tablets By Mouth 2 times a day Contact prescribing physician if questions or concerns Unchanged ascorbic acid (ascorbic acid 500 mg Tab) 1 Tablets By Mouth Every day Contact prescribing physician if questions or concerns Unchanged aspirin (aspirin 81 mg Oral EC Tab) 1 Tablets By Mouth Every day Contact prescribing physician if questions or concerns Unchanged atenolol (atenolol 50 mg Tab) 1 Tablets By Mouth Every day Contact prescribing physician if questions or concerns Unchanged atorvastatin (atorvastatin 20 mg Tab) 1 Tablets By Mouth At bedtime Contact prescribing physician if questions or concerns Unchanged calcium carbonate-magnesium carbonate (MagneBind 300 oral tablet) 1 Tablets By Mouth Every day Contact prescribing physician if questions or concerns Unchanged cholecalciferol (cholecalciferol 1000 intl units oral tablet) 1 Tablets By Mouth Every day Contact prescribing physician if questions or concerns Unchanged cyanocobalamin (Vitamin B12) Contact prescribing physician if questions or concerns Unchanged diclofenac (diclofenac sodium 75 mg Oral EC Tab) 1 Tablets By Mouth Every day Contact prescribing physician if questions or concerns Unchanged furosemide (furosemide 20 mg Tab) Contact prescribing physician if questions or concerns Unchanged furosemide (furosemide 20 mg Tab) 1 Tablets By Mouth Every day Contact prescribing physician if questions or concerns Unchanged gabapentin (gabapentin 300 mg Cap) 3 Capsules By Mouth At bedtime Contact prescribing physician if questions or concerns Unchanged glimepiride (glimepiride 2 mg Tab) 1 Tablets By Mouth 2 times a day Contact prescribing physician if questions or concerns Unchanged hydrochlorothiazide-lisinop ril (hydrochlorothiazide-lisino pril 12.5 mg-20 mg Tab) 1 Tablets By Mouth Every day Contact prescribing physician if questions or concerns Unchanged metformin (metformin 1000 mg oral tablet) 1 Tablets By Mouth Twice a day (with meals) Contact prescribing physician if questions or concerns Unchanged Non-Formulary Medication (Magnesium) Contact prescribing physician if questions or concerns Unchanged omeprazole (omeprazole 20 mg Cap-DR) Contact prescribing physician if questions or concerns Unchanged ropinirole (ropinirole 0.5 mg Tab) 2 Tablets By Mouth At bedtime Contact prescribing physician if questions or concerns Unchanged sitagliptin (Januvia 50 mg Tab) Contact prescribing physician if questions or concerns Allergies Tylenol with Codeine #3 (Upset stomach) codeine (Unknown, Dizziness) Problems Ongoing - Any problem that you are currently receiving treatment for. Anemia Anemia due to GI blood loss B12 deficiency Chronic GERD Diabetes Diverticulosis Fatty liver Fundic gland polyps of stomach, benign Hemorrhoids History of rectal polyps Hyperlipidemia Hyperlipidemia Liver fibrosis Low magnesium level Metabolic syndrome Nausea Obesity due to excess calories Polyneuropathy Rectal polyp Restless legs Type 2 diabetes mellitus without complication Weight loss Historical - Any problem that you are no longer receiving treatment for. Elevated alkaline phosphatase level Patient Survey You may receive a survey via text or e-mail asking about your office visit. Please share your expe (more content not included)... Normal [facility] Gastroenterology Office/Clin ic Noteon 03-28-2024 Gastroenterology Office/Clinic Note Chief Complaint 3 month follow up HPI Staff This is a 73 year old female who presents today for a follow-up from 12/07/23 office visit, labs and US. History of Present Illness I have reviewed HPI staff note, most recent labs and imaging, more than 30 minutes spent reviewing the chart, during encounter, placing orders and counseling the patient. PT lost some weight about 20 pounds pt with hx of F3 fibrosis pt switched to pepsi zero getting DM under good control eating more fruits and vegetable Review of Systems All systems reviewed, negative except as mentioned above Physical Exam Vitals & Measurements HR: 80(Peripheral) RR: 16 BP: 126/75 HT: 63 in HT: 160 cm WT: 96 kg WT: 211.2 lb BMI: 37.5 General: alert, no acute distress HEENT: atraumatic normocephalic Cardiovascular: regular rate and rhythm, normal peripheral perfusion Respiratory: Lungs CTA, respirations non labored Extremities: no deformity, no trauma Abdomen: Benign, soft, nontender nondistended Assessment/Plan 1. Liver fibrosis (K74.00: Hepatic fibrosis, unspecified) 2. Weight loss (R63.4: Abnormal weight loss) 3. Anemia (D64.9: Anemia, unspecified) 4. Chronic GERD (K21.9: Gastro-esophageal reflux disease without esophagitis) 5. Diabetes (E11.9: Type 2 diabetes mellitus without complications) 6. Metabolic syndrome (E88.810: Metabolic syndrome) 7. Obesity due to excess calories (E66.09: Other obesity due to excess calories) We will start on Rezdiffra for hepatic fibrosis Plan to repeat liver chemistries and FibroScan 6 months after starting treatment Advised to continue to lose weight and eat healthy Advised to switch to Mediterranean diet Advised to drink 2 to 3 cups of medium roast coffee every day Follow-up No qualifying data available Problem List/Past Medical History Ongoing Anemia Anemia due to GI blood loss B12 deficiency Chronic GERD Diabetes Diverticulosis Fatty liver Fundic gland polyps of stomach, benign Hemorrhoids History of rectal polyps Hyperlipidemia Hyperlipidemia Liver fibrosis Low magnesium level Metabolic syndrome Nausea Obesity due to excess calories Polyneuropathy Rectal polyp Restless legs Type 2 diabetes mellitus without complication Weight loss Historical Elevated alkaline phosphatase level Procedure/Surgical History Carpal tunnel (02/29/2024), Colonoscopy (06/12/2022), Esophagogastroduodenoscopy (06/12/2022), Scar management. Medications allopurinol 100 mg Tab, 100 mg= 1 tab(s), Oral, BID ascorbic acid 500 mg Tab, 500 mg= 1 tab(s), Oral, Daily aspirin 81 mg Oral EC Tab, 81 mg= 1 tab(s), Oral, Daily atenolol 50 mg Tab, 50 mg= 1 tab(s), Oral, Daily atorvastatin 20 mg Tab, 20 mg= 1 tab(s), Oral, Bedtime cholecalciferol 1000 intl units oral tablet, 25 mcg= 1 tab(s), Oral, Daily diclofenac sodium 75 mg Oral EC Tab, 75 mg= 1 tab(s), Oral, Daily, Not taking furosemide 20 mg Tab furosemide 20 mg Tab, 20 mg= 1 tab(s), Oral, Daily, 5 refills gabapentin 300 mg Cap, 900 mg= 3 cap(s), Oral, Bedtime glimepiride 2 mg Tab, 2 mg= 1 tab(s), Oral, BID hydrochlorothiazide-lisinop ril 12.5 mg-20 mg Tab, 1 tab(s), Oral, Daily Januvia 50 mg Tab MagneBind 300 oral tablet, 1 tab(s), Oral, Daily Magnesium metformin 1000 mg oral tablet, 1000 mg= 1 tab(s), Oral, BIDWM omeprazole 20 mg Cap-DR ropinirole 0.5 mg Tab, 1 mg= 2 tab(s), Oral, Bedtime Vitamin B12 Allergies Tylenol with Codeine #3 (Upset stomach) codeine (Unknown, Dizziness) Social History Alcohol - No Risk, 01/19/2022 Substance Abuse - Denies Substance Abuse, 01/19/2022 Tobacco - Denies Tobacco Use, 01/19/2022 Never (less than 100 in lifetime) Tobacco Use:., 03/28/2024 Never (less than 100 in lifetime) Tobacco Use:. Never Smokeless Tobacco Use:., 12/07/2023 Family History Congenital heart disease: Mother. Lung cancer: Father. Immunizations Vaccine Date Status Comments influenza virus vaccine, inactivated 11/25/2023 Recorded influenza virus vaccine, inactivated 08/27/2022 Recorded influenza virus vaccine, inactivated 09/26/2021 Recorded SARS-CoV-2 (COVID-19) mRNA BNT-162b2 vax 08/13/2021 Recorded 2022-09-18: [id number] SARS-CoV-2 (COVID-19) mRNA BNT-162b2 vax 02/05/2021 Recorded SARS-CoV-2 (COVID-19) mRNA BNT-162b2 vax 01/14/2021 Recorded pneumococcal 23-valent vaccine 08/16/2018 Recorded influenza virus vaccine, inactivated 08/16/2018 Recorded influenza virus vaccine, inactivated 09/18/2016 Recorded influenza virus vaccine, inactivated 10/17/2015 Recorded [facility] Comment on above: Result Comment: Elec tronically Signed By: Shanel DONG, Verónica Alejo.br\Date and Time Signed: 03/28/24 12:47 EDT Retail - Clinical Noteon Retail - Clinical Note [id number] [facility] CNPNon 02-11-2024 CNPN Telephone (HEMTSA) NIKHILANH ([id number]) 1950 F Date Time Provider Department 02/11/24 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 Allergies As of Date: 02/11/2024 Noted Allergy Reaction ACETAMINOPHEN-CODEINE 10/01/2022 14 - Other: See Comments Comments: pt states she is unwilling to try even plain tylenol after this experience even though she states she took tylenol prior to this and had no problems TYLENOL #3 (CODEINE) 09/26/2022 14 - Other: See Comments Comments: Upset stomach Date Reviewed: 02/11/2024 Reviewed by: Ashley Martínez, RN - Fully Assessed Reason for Visit: Benefits Investigation [4040] Prescriptions as of 02/11/2024 - JANUVIA 50 mg tablet Take 1 tablet by mouth every afternoon. - albuterol HFA (PROVENTIL HFA, VENTOLIN HFA) [...] twice daily. Problem List As Of Date 02/11/2024 Noted Resolved Iron deficiency anemia due to chronic blood los*10/03/2022 Stage 3b chronic kidney disease (HCC) [N18.32] 01/29/2024 Encounter Status:Closed by SUZETTE DEAN on 02/11/24 Normal [facility] XR chest 2V*on 02-11-2024 XR chest 2V* [facility] [place] [address] XRay Report Signed Patient: Anh Tejeda MR#: [id number] 036 : 1950 Acct:[id number] Age/Sex: 73 / F ADM Date: 02/11/24 Loc: XD Room: Type: [facility] Attending Dr: Vinay Matta DO Copies to: Vinay Matta DO Ordering Provider: Vinay Matta DO Date of Service: 02/11/24 XR/XR chest 2V*: DYSPNEA Chest 2 views CLINICAL HISTORY: Shortness of breath for 6 months. COMPARISON: Chest 03/11/2023 FINDINGS: Heart is normal in size. Lungs are clear. No free air. XR/XR chest 2V* IMPRESSION: NO ACUTE CARDIOPULMONARY ABNORMALITY. Impression dictated by: René Fox Jr., D.O.02/11/2024 11:40 AM Dictation Location: [place] [address] Transcribed By: [facility] 02/11/24 1140 Dictated By: René Fox Jr, DO 02/11/24 1140 Signed By: 02/11/24 1140 [facility] Consultation Noteon 02-04-20 Consultation Note [id number] Normal [facility] .Interpretation:on HCV Ab IA Ql Comment Invalid Interpretation Code [facility] Comment on above: Result Comment: Not infected with HCV unless early or acute infection is suspected (which may be delayed in an immunocompromised individual), or other evidence exists to indicate HCV infection. Performed at: [facility] [address] [id number] PhD Isma Banks Performed By: #### 9 [id number], 17564892, 00049730, 89429563, 09108531, 6859186519, 5823165, 2748476, 1309120, 8540218, 68433276, 79169042, 21071679, 0227004945, 0960432, 8562022813, 7144641, 14990821, 3056420, 43992343, 8198742675 ####[facility] [address] [place] [address] AMA Ab Scron 02-03-2024 Mitochondria M2 IgG Qn (S) <20.0 Invalid Interpretation Code 0.0-20.0 [facility] Comment on above: Result Comment: Nega tive 0.0 - 20.0 Equivocal 20.1 - 24.9 Positive >24.9 Mitochondrial (M2) Antibodies are found in 90-96% of patients with primary biliary cirrhosis. Performed at: [facility] [place] [address] [place], [place] [id number] PhD Isma Banks Performed By: #### 9 94598986, 00209688, 61798007, 16088895, 25874369, 3712596766, 0201331, 6483253, 4441905, 7721803, 23557709, 92656067, 88017023, 8650829642, 7289626, 3578156456, 6781253, 21981028, 6511905, 80691674, 1918380102 ####[facility] [address] [place] [address] MAXX w/Reflex if POSon 2023 Nuclear Ab Ql (S) Negative Invalid Interpretation Code Negative [facility] Comment on above: Result Comment: Perf ormed at: [facility] [id number] PhD Isma Banks Performed By: #### 9 74040865, 97898087, 05972616, 17372680, 37691362, 5959617184, 1746844, 6099183, 5272844, 1277376, 72718873, 90867808, 86830459, 8599987398, 2757873, 0358996011, 1735207, 21932315, 6205681, 52247255, 3391326840 ####[place] [address] [place] [address] Alpha 1 Antitrpon 02-03-2024 Alpha 1 antitrypsin [Mass/Vol] 169 mg/dL Invalid Interpretation Code 101-187 [facility] Comment on above: Result Comment: Perf ormed at: [facility] [address] [place], [place] [id number] PhD Isma Banks Performed By: #### 9 85518415, 30594285, 10556958, 07027869, 73453463, 1263795819, 0395824, 8710099, 0541805, 0147141, 11452000, 02297544, 71285333, 3246064102, 6072812, 8027705122, 8405901, 66288484, 3380798, 93156444, 7177871709 ####[facility] [address] [place] [address] Celiac Disease Comprehensive on 02-03-2024 Endomysium IgA Ql (S) Negative Invalid Interpretation Code Negative [facility] Comment on above: Performed By: #### 9 80368184, 68482877, 65645842, 91042905, 46393834, 5381455468, 8549407, 5960598, 4406464, 6984672, 94291221, 87741765, 37050023, 3605047174, 1896036, 4022354681, 3393176, 60217786, 7803352, 62800029, 3053534932 ####[facility] [address] [place] [address] Gliadin peptide IgA Qn (S) 2 unit(s) Invalid Interpretation Code 0 [facility] Comment on above: Result Comment: Nega tive 0 - 19 Weak Positive 20 - 30 Moderate to Strong Positive >30 Performed By: #### 9 16315997, 33435898, 31100563, 30079971, 43945486, 5295991098, 3061726, 3216006, 8720523, 5688734, 70236676, 65069202, 77612348, 9214956748, 1749077, 8977787833, 2072117, 00009202, 7778237, 17604179, 9071265705 ####[place] [place] [address] Gliadin peptide IgG Qn (S) 2 unit(s) Invalid Interpretation Code 0 [facility] Comment on above: Result Comment: Nega tive 0 - 19 Weak Positive 20 - 30 Moderate to Strong Positive >30 Performed By: #### 9 19625931, 54944823, 11414380, 23289310, 44368307, 8752826420, 8239735, 8025436, 8171992, 0650445, 02164293, 80829155, 17832002, 0623826184, 4641511, 7116033009, 2852105, 35351637, 1522243, 62413679, 1188128889 ####[facility] [address] [place] [address] IgA [Mass/Vol] 64 mg/dL Invalid Interpretation Code 64-422 [facility] Comment on above: Result Comment: Perf ormed at: [facility] [id number] PhD Isma Banks Performed By: #### 9 30962118, 07885658, 97777129, 41104543, 57031178, 6564148576, 7469484, 2819295, 3139070, 5602959, 45104555, 54381741, 45837460, 7177925262, 0056731, 0420010608, 8770667, 04047662, 5758519, 17710617, 3546211130 ####[facility] [address] [place] [address] tTG IgA Qn (S) <2 Invalid Interpretation Code 0-3 [facility] Comment on above: Result Comment: Nega tive 0 - 3 Weak Positive 4 - 10 Positive >10 Tissue Transglutaminase (tTG) has been identified as the endomysial antigen. Studies have demonstr- ated that endomysial IgA antibodies have over 99% specificity for gluten sensitive enteropathy. Performed By: #### 9 93462903, 48917125, 01438508, 46903478, 80946881, 3315419764, 7614484, 9562424, 5411599, 1105406, 95897953, 56059370, 73445862, 9801526682, 3627174, 2517233656, 1283554, 31759362, 3501338, 88676989, 8421063589 ####[facility] [address] [place] [address] tTG IgG Qn (S) <2 Invalid Interpretation Code 0-5 [facility] Comment on above: Result Comment: Nega tive 0 - 5 Weak Positive 6 - 9 Positive >9 Performed By: #### 9 21339477, 12511725, 67284691, 19333689, 60107595, 8064663215, 8722889, 6605196, 9818498, 0375596, 82176114, 16621920, 03482065, 3982345211, 8114280, 9677008421, 8417638, 03469183, 0292834, 74416834, 4179551989 ####[address] [place] [address] Ceruloplasminon 02-03-2024 Ceruloplasmin [Mass/Vol] 30.2 mg/dL Invalid Interpretation Code 19.0-39.0 [facility] Comment on above: Result Comment: Perf ormed at: [address] [id number] PhD Isma Banks Performed By: #### 9 53866302, 62042742, 67780942, 16717933, 39384900, 6019077902, 8224634, 0030180, 7151106, 9733600, 98803779, 36416008, 87959997, 9961897833, 4527199, 9491406740, 6649060, 50204069, 7960678, 19614740, 4441833331 ####[facility] [address] [address] HBV Core Abon 02-03-2024 HBV core Ab IA Ql Negative Invalid Interpretation Code Negative [facility] Comment on above: Result Comment: Perf ormed at: [address] [id number] PhD Isma Banks Performed By: #### 9 48182248, 10785713, 99586075, 51452587, 11160331, 6851054371, 0673671, 1892893, 5280053, 1282415, 98476166, 35300606, 46941983, 7010147531, 4383928, 0193751608, 2056432, 97685299, 3178926, 08864240, 4442539179 ####[address] [place] [address] HBV core IgM IA Ql Negative Invalid Interpretation Code Negative [facility] Comment on above: Performed By: #### 9 90361714, 68913783, 48461448, 64349542, 84605921, 0531299081, 1670490, 3022189, 3213869, 0204332, 83461184, 38144703, 77664724, 4705585341, 8499743, 1804764184, 3708238, 51090380, 5321130, 81775916, 4988877728 ####[facility] [address] [place] [address] HCV Antibody RFX to Quant PC Narinder 02-03-2024 HCV IgG IA Ql Non-Reactive Invalid Interpretation Code Non Reactive [facility] Comment on above: Result Comment: [facility]: [facility] [address] [place] [id number] PhD Isma Banks Performed By: #### 9 90863863, 15726592, 61397663, 95852873, 48573122, 4912771342, 7998355, 5838725, 3852683, 6517130, 11977798, 77533975, 85452280, 4626415818, 3335366, 7691491040, 9024615, 18383323, 0205040, 59252537, 9384730712 ####[facility] [address] [place] [address] HCV Genotyping Non Reflexon 02-03-2024 HCV genotype DIPESH+probe Nom COMMENT Invalid Interpretation Code [facility] Comment on above: Result Comment: Test not performed. Unable to provide an HCV genotype for this sample. The most common reason an HCV genotype cannot be determined is due to a viral load of <1,000 IU/mL, or more rarely, the presence of an untypable HCV genotype. Performed By: #### 9 83224196, 79585563, 51497739, 69764328, 17452399, 2094766878, 8510756, 5049560, 4537042, 3275605, 95318180, 02516575, 49752507, 0227013970, 7436929, 3072530476, 6889068, 87083709, 7733665, 35271630, 6041851520 ####[facility] [address] [place] [address] Laboratory comment Richardson (Report) Comment Invalid Interpretation Code [facility] Comment on above: Result Comment: This test was developed and its performance characteristics determined by [facility]. It has not been cleared or approved by the U.S. Food and Drug Administration. The FDA has determined that such clearance or approval is not necessary. This test is used for clinical purposes. It should not be regarded as investigational or for research. Performed at: [address] [id number] MD Samm Parker Performed By: #### 9 83716351, 66676961, 99682927, 57371540, 41974239, 9318842801, 4806468, 4714724, 1148433, 5971561, 38179150, 53598456, 54363900, 0237893093, 3193169, 3260875270, 1655286, 76611046, 1819731, 08676606, 3188824470 ####[facility] [address] [place] [address] HCV RNA by PCR, [facility] n 02-03-2024 HCV genotype DIPESH+probe Nom COMMENT Invalid Interpretation Code [facility] Comment on above: Result Comment: Not indicated Performed at: [address] [id number] MD Samm Parker Performed By: #### 9 00551856, 79198408, 15190542, 15490698, 24574804, 1341558052, 6019217, 0551251, 9958625, 7922534, 46471157, 87873685, 00624159, 6948305340, 5735951, 2328151468, 5167010, 03360422, 9542175, 87888714, 5568270227 ####[facility] [address] [place] [address] HCV RNA DIPESH+probe [Log units/Vol] COMMENT Invalid Interpretation Code [facility] Comment on above: Result Comment: Unab le to calculate result since non-numeric result obtained for component test. Performed By: #### 9 70911491, 84549980, 38709620, 38486609, 66364150, 8571455288, 7152031, 9375433, 1804211, 6046860, 38501741, 37513146, 59469023, 8327162733, 7718968, 2469859041, 0097072, 34480204, 0893996, 01991700, 2285320465 ####[facility] [address] [place] [address] HCV RNA DIPESH+probe Qn Not detected Invalid Interpretation Code [facility] Comment on above: Performed By: #### 9 88732392, 46663315, 69715305, 76527309, 77379640, 2185472011, 5370252, 1418583, 5497615, 3993365, 83061083, 38376706, 67088922, 7638146033, 8982670, 6865040362, 0530624, 86074111, 5235087, 17472679, 8923030161 ####[facility] [address] [place] [address] Laboratory comment Richardson (Report) Comment Invalid Interpretation Code [facility] Comment on above: Result Comment: The quantitative range of this assay is 15 IU/mL to 100 million IU/mL. Performed By: #### 9 86880598, 79050547, 71869345, 01634221, 55211072, 3866617879, 8471700, 1657982, 0486385, 5957259, 15635247, 26956917, 18657698, 1596936593, 6507311, 0771997274, 0837253, 37620960, 0036877, 41032080, 2508088517 ####[facility] [address] [place] [address] HIV Screen 4th Generation wR fxon 02-03-2024 HIV 1+2 Ab+HIV1 p24 Ag IA Ql Non-Reactive Invalid Interpretation Code Non Reactive [facility] Comment on above: Result Comment: HIV Negative HIV-1/HIV-2 antibodies and HIV-1 p24 antigen were NOT detected. There is no laboratory evidence of HIV infection. Performed at: [facility] [address], [place] [id number] PhD Isma Banks Performed By: #### 9 86877098, 91245777, 36894020, 36681819, 37425105, 6790540412, 4817970, 2505923, 8376093, 5586308, 39761559, 11464345, 39451207, 9338870120, 8754537, 1247130406, 8288764, 82311636, 8126435, 90916530, 9845280763 ####[facility] [address] [place] [address] Hep Bs Abon 02-03-2024 HBV surface Ab Ql (S) Non-Reactive Invalid Interpretation Code [facility] Comment on above: Result Comment: Non Reactive: Inconsistent with immunity, less than 10 mIU/mL Reactive: Consistent with immunity, greater than 9.9 mIU/mL Performed at: [address] [id number] PhD Isma Banks Performed By: #### 9 46544577, 48444880, 62288379, 39274334, 04139067, 8736799587, 7216436, 8885231, 1089068, 5035227, 61034356, 20077528, 97098572, 0166725692, 5892625, 4291314415, 8648283, 93815749, 1519305, 25605899, 6608220568 ####[address] [place] [address] Hep Bs Agon 02-03-2024 HBV surface Ag IA Ql Negative Invalid Interpretation Code Negative [facility] Comment on above: Result Comment: Perf ormed at: [facility] [address] [place] [id number] PhD Isma Banks Performed By: #### 9 47539834, 85643522, 16797642, 85413151, 20781620, 2964250466, 5419896, 2196884, 8757816, 7319742, 58483776, 37956265, 12024087, 1313685991, 7693749, 3881061885, 1414281, 29474441, 1200170, 59471498, 5161671279 ####[facility] [address] [place] [address] Smooth Muscle Abon 4 Actin smooth muscle IgG Qn (S) 6 unit(s) Invalid Interpretation Code 0-19 [facility] Comment on above: Result Comment: Nega tive 0 - 19 Weak positive 20 - 30 Moderate to strong positive >30 Actin Antibodies are found in 52-85% of patients with autoimmune hepatitis or chronic active hepatitis and in 22% of patients with primary biliary cirrhosis. Performed at: [facility] [address] [id number] PhD Isma Banks Performed By: #### 9 75311001, 02688999, 24238151, 79067235, 08265507, 6795843211, 6457889, 5844812, 8736002, 8381232, 10317792, 59414543, 05320879, 7259891103, 0868180, 7285180634, 3559600, 19556995, 1999215, 54936806, 4648029848 ####[facility] [address] [place] [address] CNPMaya 02-01-2024 CNPMari Telephone (MARSHALL) ANH TEJEDA ([id number]) 1950 F Date Time Provider Department 02/01/24 SAMANTHA MCMAHAN During your visit today, we recorded the following information about you: Samantha Mcmahan, RN 02/01/2024 9:36 AM Signed ----- Message from Daksha Bridges PA-C sent at 02/01/2024 8:00 AM EDT ----- Please call and advise that her iron studies are dropping and she is anemic and since she is feeling more fatigued IV iron would be reasonable if she would like. Samantha Mcmahan, JAQUAN 02/01/2024 9:40 AM Signed Pt aware and agreeable to IV Iron MM: Please place orders PSS: please call to schedule Samantha Mcmahan, RN Daksha Bridges, TROY 02/01/2024 9:43 AM Signed Orders are placed. Please schedule for venofer 300 mg IV x 3 weeks Rudy Carbajal 02/01/2024 9:57 AM Signed Patient has been scheduled for IV Venofer on 02/10, 02/17 and 02/24 and has been notified. Thanks! Rudy Carbajal Allergies As of Date: 02/01/2024 Noted Allergy Reaction ACETAMINOPHEN-CODEINE 10/01/2022 14 - Other: See Comments Comments: pt states she is unwilling to try even plain tylenol after this experience even though she states she took tylenol prior to this and had no problems TYLENOL #3 (CODEINE) 09/26/2022 14 - Other: See Comments Comments: Upset stomach Date Reviewed: 02/01/2024 Reviewed by: Daksha Bridges, PA-C - Fully Assessed Reason for Visit: IV Iron [Other] Prescriptions as of 02/01/2024 - JANUVIA 50 mg tablet Take 1 tablet by mouth every afternoon. - albuterol HFA (PROVENTIL HFA, VENTOLIN HFA) [...] twice daily. Problem List As Of Date 02/01/2024 Noted Resolved Iron deficiency anemia due to chronic blood los*10/03/2022 Stage 3b chronic kidney disease (HCC) [N18.32] 01/29/2024 Encounter Status:Closed by RUDY CARBAJAL on 02/01/24 Normal [facility] CBC W Auto Differential pane l (Bld)on 01-29-2024 Basophils (Bld) [#/Vol] 0.03 10*3/uL Normal <0.11 [facility] Comment on above: Order Comment: Speci men Type: BLOOD SPECIMENOrdering Facility: [facility] Address: [address] [place] [address] Performed By: #### 5 7021-8 ####[facility] LABCLIA [id number] [place] [address] Basophils/100 WBC (Bld) 0.5 % Normal [facility] Comment on above: Order Comment: Speci men Type: BLOOD SPECIMENOrdering Facility: [facility] Address: [address] [place] [address] Performed By: #### 5 7021-8 ####[facility] LABCLIA [id number] [place] [address] Differential cell count method Nom (Bld) Auto Normal [facility] Comment on above: Order Comment: Speci men Type: BLOOD SPECIMENOrdering Facility: [facility] Address: [address] [place] [address] Performed By: #### 5 7021-8 ####[facility] LABCLIA [id number] [place] [address] Eosinophils (Bld) [#/Vol] 0.13 10*3/uL Normal <0.46 [facility] Comment on above: Order Comment: Speci men Type: BLOOD SPECIMENOrdering Facility: [facility] Address: [address] [place] [address] Performed By: #### 5 7021-8 ####[facility] LABCLIA [id number] [place] [address] Eosinophils/100 WBC (Bld) 2.2 % Normal [facility] Comment on above: Order Comment: Speci men Type: BLOOD SPECIMENOrdering Facility: [facility] Address: [address] [place] [address] Performed By: #### 5 7021-8 ####[facility] LABCLIA [id number] [place] [address] Erythrocyte distribution width (RBC) [Ratio] 16.2 % High 11.5-15.0 [facility] Comment on above: Order Comment: Speci men Type: BLOOD SPECIMENOrdering Facility: [facility] Address: [address] [place] [address] Performed By: #### 5 7021-8 ####[facility] LABCLIA [id number] [place] [address] Hematocrit (Bld) [Volume fraction] 32.6 % Low 36.0-46.0 [facility] Comment on above: Order Comment: Speci men Type: BLOOD SPECIMENOrdering Facility: [facility] Address: [address] [place] [address] Performed By: #### 5 7021-8 ####[facility] LABCLIA [id number] [place] [address] Hemoglobin (Bld) [Mass/Vol] 10.6 g/dL Low 11.5-15.5 [facility] Comment on above: Order Comment: Speci men Type: BLOOD SPECIMENOrdering Facility: [facility] Address: [address] [place] [address] Performed By: #### 5 7021-8 ####[facility] LABCLIA [id number] [place] [address] Immature granulocytes (Bld) [#/Vol] 0.03 10*3/uL Normal <0.10 [facility] Comment on above: Order Comment: Speci men Type: BLOOD SPECIMENOrdering Facility: [facility] Address: [address] [place] [address] Performed By: #### 5 7021-8 ####[facility] LABCLIA [id number] [place] [address] Immature granulocytes/100 WBC (Bld) 0.5 % Normal [facility] Comment on above: Order Comment: Speci men Type: BLOOD SPECIMENOrdering Facility: [facility] Address: [address] [place] [address] Performed By: #### 5 7021-8 ####[facility] LABCLIA [id number] [place] [address] Lymphocytes (Bld) [#/Vol] 1.06 10*3/uL Normal 1.00-4.00 [facility] Comment on above: Order Comment: Speci men Type: BLOOD SPECIMENOrdering Facility: [facility] Address: [address] [place] [address] Performed By: #### 5 7021-8 ####[facility] LABCLIA [id number] [place] [address] Lymphocytes/100 WBC (Bld) 17.7 % Normal [facility] Comment on above: Order Comment: Speci men Type: BLOOD SPECIMENOrdering Facility: [facility] Address: [address] [place] [address] Performed By: #### 5 7021-8 ####[facility] LABCLIA [id number] [place] [address] MCH (RBC) [Entitic mass] 28.4 pg Normal 26.0-34.0 [facility] Comment on above: Order Comment: Speci men Type: BLOOD SPECIMENOrdering Facility: [facility] Address: [address] [place] [address] Performed By: #### 5 7021-8 ####[facility] LABCLIA [id number] [place] [address] MCHC (RBC) [Mass/Vol] 32.5 g/dL Normal 30.5-36.0 [facility] Comment on above: Order Comment: Speci men Type: BLOOD SPECIMENOrdering Facility: [facility] Address: [address] [place] [address] Performed By: #### 5 7021-8 ####[facility] LABCLIA [id number] [place] [address] MCV (RBC) [Entitic vol] 87.4 fL Normal 80.0-100.0 [facility] Comment on above: Order Comment: Speci men Type: BLOOD SPECIMENOrdering Facility: [facility] Address: [address] [place] [address] Performed By: #### 5 7021-8 ####[facility] LABCLIA [id number] [place] [address] Monocytes (Bld) [#/Vol] 0.21 10*3/uL Normal <0.87 [facility] Comment on above: Order Comment: Speci men Type: BLOOD SPECIMENOrdering Facility: [facility] Address: [address] [place] [address] Performed By: #### 5 7021-8 ####[facility] LABCLIA [id number] [place] [address] Monocytes/100 WBC (Bld) 3.5 % Normal [facility] Comment on above: Order Comment: Speci men Type: BLOOD SPECIMENOrdering Facility: [facility] Address: [address] [place] [address] Performed By: #### 5 7021-8 ####[facility] LABCLIA [id number] [place] [address] Neutrophils (Bld) [#/Vol] 4.52 10*3/uL Normal 1.45-7.50 [facility] Comment on above: Order Comment: Speci men Type: BLOOD SPECIMENOrdering Facility: [facility] Address: [address] [place] [address] Performed By: #### 5 7021-8 ####[facility] LABCLIA [id number] [place] [address] Neutrophils/100 WBC (Bld) 75.6 % Normal [facility] Comment on above: Order Comment: Speci men Type: BLOOD SPECIMENOrdering Facility: [facility] Address: [address] [place] [address] Performed By: #### 5 7021-8 ####[facility] LABCLIA [id number] [place] [address] Nucleated RBC (Bld) [#/Vol] 10*3/uL Normal <0.01 [facility] Comment on above: Order Comment: Speci men Type: BLOOD SPECIMENOrdering Facility: [facility] Address: [address] [place] [address] Performed By: #### 5 7021-8 ####[facility] LABCLIA [id number] [place] [address] Nucleated RBC/100 WBC (Bld) [Ratio] 0.0 /100 WBC Normal [facility] Comment on above: Order Comment: Speci men Type: BLOOD SPECIMENOrdering Facility: [facility] Address: [address] [place] [address] Performed By: #### 5 7021-8 ####[facility] LABCLIA [id number] [place] [address] Platelet mean volume (Bld) [Entitic vol] 9.7 fL Normal 9.0-12.7 [facility] Comment on above: Order Comment: Speci men Type: BLOOD SPECIMENOrdering Facility: [facility] Address: [address] [place] [address] Performed By: #### 5 7021-8 ####[facility] LABIA [id number] [place] [address] Platelets (Bld) [#/Vol] 147 10*3/uL Low 150-400 [facility] Comment on above: Order Comment: Speci men Type: BLOOD SPECIMENOrdering Facility: [facility] Address: [address] [place] [address] Performed By: #### 5 7021-8 ####[facility] [id number] [place] [address] RBC (Bld) [#/Vol] 3.73 10*6/uL Low 3.90-5.20 [facility] Comment on above: Order Comment: Speci men Type: BLOOD SPECIMENOrdering Facility: [facility] Address: [address] [place] [address] Performed By: #### 5 7021-8 ####[facility] [id number] [place] [address] WBC (Bld) [#/Vol] 5.98 10*3/uL Normal 3.70-11.00 [facility] Comment on above: Order Comment: Speci men Type: BLOOD SPECIMENOrdering Facility: [facility] Address: [address] [place] [address] Performed By: #### 5 7021-8 ####[facility] [id number] [place] [address] CNOVSPon 01-29-2024 CNOVSP Visit (SP) Office ([facility]) ANH TEJEDA ([id number]) 1950 F Date Time Provider Department 01/29/24 10:30 AM DAKSHA BRIDGES During your visit today, we recorded the following information about you: Temperature Pulse Respiration Blood pressure 98.2 degrees 93/minute 16/minute 136/66 Weight Height 99 kg 1.58 m Daksha Bridges PA-C 01/29/2024 11:06 AM Signed PATIENT NAME: Anh Tejeda CLINIC NO.: [id number] ATTENDING PHYSICIAN: Henry Walker MD DATE OF SERVICE: January 29, 2024 (Elements copied from my note dated May 01, 2023, have been reviewed and updated where appropriate, and all reflect current assessment and medical decision making during today's encounter, January 29, 2024) CHIEF COMPLAINT: Follow up Diagnosis: NAINA Treatment: Venofer x 3 doses 10/2022 HPI: Anh returns for follow up. Had to go to the ER last week due to leg rayo and cramps. Was found to have low magnesium and potassium. (Records reviewed) Also had recent liver ultrasound by her GI doctor. She is still having leg cramps, but not as severe. She had teeth pulled and new dentures and her eating has been poor. Fatigue level is worse. She feels she is tired more. She gets 5 hours of sleep and then she wakes up and can't go back to sleep. Going on a trip to [place] for week. Current Outpatient Medications Medication Sig JANUVIA 50 mg tablet Take 1 tablet by mouth every afternoon. predniSONE (DELTASONE) 20 mg tablet TAKE 2 TABLETS BY MOUTH DAILY FOR 2 DAYS THEN TAKE 1 TABLET BY MOUTH DAILY FOR 2 DAYS THEN TAKE ONE-HALF TABLET BY MOUTH DAILY FOR 2 DAYS albuterol HFA (PROVENTIL HFA, VENTOLIN HFA) 90 mcg/actuation inhaler INHALE 2 PUFFS BY MOUTH EVERY 4 HOURS NEEDED FOR COUGH Calcium Carb-Magnesium Carb 250-300 mg tab Take by mouth. MAGNESIUM OXIDE ORAL Take 1 [...] HISTORY Procedure Laterality Date COLONOSCOPY EGD W/O [facility] SPEC VARICIES INJ FAMILY HISTORY Problem Relation Age of Onset other (Congenital heart disease) Mother Lung Cancer Father Social History Tobacco Use Smoking status: Never Passive exposure: Past Smokeless tobacco: Never Vaping Use Vaping Use: Never used Substance Use Topics Alcohol use: Never Drug [...] of hands/feet. No weakness. PHYSICAL EXAMINATION: BP 136/66 Pulse 93 Temp 36.8 ?C (98.2 ?F) (more content not included)... Normal [facility] 01-29-2024 CNPN Telephone ([facility]) ANH TEJEDA ([id number]) 1950 F Date Time Provider Department 01/29/24 SAMANTHA MCMAHAN During your visit today, we recorded the following information about you: Samantha Mcmahan RN 01/29/2024 1:17 PM Signed Pt called to inform MM her blood sugar is down to 198. Instructed to keep a record and notify PCP Thursday for an appt to manage. She is agreeable and will call. Samantha Mcmahan RN Allergies As of Date: 01/29/2024 Noted Allergy Reaction ACETAMINOPHEN-CODEINE 10/01/2022 14 - Other: See Comments Comments: pt states she is unwilling to try even plain tylenol after this experience even though she states she took tylenol prior to this and had no problems TYLENOL #3 (CODEINE) 09/26/2022 14 - Other: See Comments Comments: Upset stomach Date Reviewed: 01/29/2024 Reviewed by: Daksha Bridges PA-C - Fully Assessed Reason for Visit: Patient Update [1234] Prescriptions as of 01/29/2024 - JANUVIA 50 mg tablet Take 1 tablet by mouth every afternoon. - albuterol HFA (PROVENTIL HFA, VENTOLIN HFA) [...] twice daily. Problem List As Of Date 01/29/2024 Noted Resolved Iron deficiency anemia due to chronic blood los*10/03/2022 Stage 3b chronic kidney disease (HCC) [N18.32] 01/29/2024 Encounter Status:Closed by SAMANTHA MCMAHAN on 01/29/24 Normal [facility] metabolic 2000 panelon 01-29-2024 Albumin [Mass/Vol] 4.2 g/dL Normal 3.9-4.[address] [facility] Comment on above: Order Comment: Speci men Type: BLOOD SPECIMENOrdering Facility: [facility] Address: [address] [place] [address] Performed By: #### 2 4323-8 ####[facility] LABCLIA [id number] [place] [address] ALP [Catalytic activity/Vol] 152 U/L High 34-123 [facility] Comment on above: Order Comment: Speci men Type: BLOOD SPECIMENOrdering Facility: [facility] Address: [address] [place] [address] Performed By: #### 2 4323-8 ####[facility] LABCLIA [id number] [place] [address] ALT [Catalytic activity/Vol] 24 U/L Normal 7-38 [facility] Comment on above: Order Comment: Speci men Type: BLOOD SPECIMENOrdering Facility: [facility] Address: [address] [place] [address] Performed By: #### 2 4323-8 ####[facility] LABCLIA [id number] [place] [address] Anion gap [Moles/Vol] 14 mmol/L Normal 9-18 [facility] Comment on above: Order Comment: Speci men Type: BLOOD SPECIMENOrdering Facility: [facility] Address: [address] [place] [address] Performed By: #### 2 4323-8 ####[facility] LABCLIA [id number] [place] [address] AST [Catalytic activity/Vol] 33 U/L Normal 13-35 [facility] Comment on above: Order Comment: Speci men Type: BLOOD SPECIMENOrdering Facility: [facility] Address: [address] [place] [address] Performed By: #### 2 4323-8 ####[facility] LABCLIA [id number] [place] [address] Bilirubin [Mass/Vol] 0.4 mg/dL Normal 0.2-1.3 [facility] Comment on above: Order Comment: Speci men Type: BLOOD SPECIMENOrdering Facility: [facility] Address: [address] [place] [address] Performed By: #### 2 4323-8 ####[facility] LABCLIA [id number] [place] [address] Calcium [Mass/Vol] 9.5 mg/dL Normal 8.5-10.[address] [facility] Comment on above: Order Comment: Speci men Type: BLOOD SPECIMENOrdering Facility: [facility] Address: [address] [place] [address] Performed By: #### 2 4323-8 ####[facility] LABCLIA [id number] [place] [address] Chloride [Moles/Vol] 100 mmol/L Normal 97-105 [facility] Comment on above: Order Comment: Speci men Type: BLOOD SPECIMENOrdering Facility: [facility] Address: [address] [place] [address] Performed By: #### 2 4323-8 ####[facility] LABCLIA [id number] [place] [address] CO2 [Moles/Vol] 27 mmol/L Normal 22-30 [facility] Comment on above: Order Comment: Speci men Type: BLOOD SPECIMENOrdering Facility: [facility] Address: [address] [place] [address] Performed By: #### 2 4323-8 ####[facility] LABCLIA [id number] [place] [address] Creatinine [Mass/Vol] 1.57 mg/dL High 0.58-0.96 [facility] Comment on above: Order Comment: Speci men Type: BLOOD SPECIMENOrdering Facility: [facility] Address: [address] [place] [address] Performed By: #### 2 4323-8 ####[facility] LABCLIA [id number] [place] [address] Creatinine and Glomerular filtration rate.predicted panel (S/P/Bld) 34 mL/min/1.73m??? Low >=60 [facility] Comment on above: Order Comment: Patricia tarango Type: BLOOD SPECIMENOrdering Facility: [facility] Address: [address] [place] [address] Result Comment: Maru mated Glomerular Filtration Rate [...] accurately reflect actual GFR. Performed By: #### 2 4323-8 ####[facility] LABCLIA [id number] [place] [address] Glucose [Mass/Vol] 327 mg/dL High 74-[address] [facility] Comment on above: Order Comment: Patricia tarango Type: BLOOD SPECIMENOrdering Facility: [facility] Address: [address] [place] [address] Result Comment: The [place] [employer] (ADA) provides guidance for cutoff [...] Standards of Medical Care in Diabetes 2016, [place] [employer]. Diabetes Care. 2016.39(Suppl 1). Performed By: #### 2 4323-8 ####[facility] LABCLIA [id number] [place] [address] Potassium [Moles/Vol] 4.5 mmol/L Normal 3.7-5.1 [facility] Comment on above: Order Comment: Speci men Type: BLOOD SPECIMENOrdering Facility: [facility] Address: [address] [place] [address] Performed By: #### 2 4323-8 ####[facility] LABCLIA [id number] [place] [address] Protein [Mass/Vol] 6.6 g/dL Normal 6.3-8.[address] [facility] Comment on above: Order Comment: Speci men Type: BLOOD SPECIMENOrdering Facility: [facility] Address: [address] [place] [address] Performed By: #### 2 4323-8 ####[facility] LABIA [id number] [place] [address] Sodium [Moles/Vol] 141 mmol/L Normal 136-[address] [facility] Comment on above: Order Comment: Speci men Type: BLOOD SPECIMENOrdering Facility: [facility] Address: [address] [place] [address] Performed By: #### 2 4323-8 ####[facility] LABCLIA [id number] [place] [address] Urea nitrogen [Mass/Vol] 39 mg/dL High 7-21 [facility] Comment on above: Order Comment: Speci men Type: BLOOD SPECIMENOrdering Facility: [facility] Address: [address] [place], [place] [address] Performed By: #### 2 4323-8 ####[facility] LABIA [id number] [place] [address] Ferritin SerPl-mCncon 2023 Ferritin [Mass/Vol] 77.7 ng/mL Normal 14.7-205.1 [facility] Comment on above: Order Comment: Speci men Type: BLOOD SPECIMENOrdering Facility: [facility] Address: [address] [place] [address] Performed By: #### 2 276-4, 43557-8 ####[facility] LABIA [id number] [place] [address] [place] Iron and Iron binding capaci ty panelon 01-29-2024 Iron [Mass/Vol] 49 ug/dL Normal 41-186 [facility] Comment on above: Order Comment: Speci men Type: BLOOD SPECIMENOrdering Facility: [facility] Address: [address] [place] [address] Performed By: #### 2 276-4, 28592-6 ####[facility] LABIA [id number] [address] [place] Iron binding capacity [Mass/Vol] 377 ug/dL Normal 232-386 [facility] Comment on above: Order Comment: Speci men Type: BLOOD SPECIMENOrdering Facility: [facility] Address: [address] [place] [address] Performed By: #### 2 276-4, 56118-1 ####[facility] LABIA [id number] [place] [address] [place] Iron/TIBC [Molar ratio] 13.0 % Low 15.0-57.0 [facility] Comment on above: Order Comment: Speci men Type: BLOOD SPECIMENOrdering Facility: [facility] Address: [address] [place] [address] Performed By: #### 2 276-4, 74679-5 ####[facility] LABIA [id number] [place] [id number] [place] CBC w/Indiceson 01-28-2024 Erythrocyte distribution width (RBC) [Ratio] 17.1 % High 10.9-14.2 [facility] Comment on above: Performed By: #### 9 13952647, 70698017, 21346586, 48032206, 87865766, 4298494140, 4914815, 8845027, 8370409, 9346222, 39706835, 29204411, 89410322, 5313944691, 4261252, 6409199033, 9959003, 84105003, 3666550, 35029123, 7337713293 ####[facility] [address] [place] [address] Hematocrit (Bld) [Volume fraction] 31.2 % Low 34.0-46.0 [facility] Comment on above: Performed By: #### 9 88136901, 79844461, 56457413, 85034399, 89688044, 8410522856, 0023933, 7716994, 1965925, 3538795, 18378827, 95491752, 47201475, 0138734752, 9122012, 2577547274, 3880065, 82690521, 0047678, 27215656, 1839557969 ####[address] [place] [address] Hemoglobin (Bld) [Mass/Vol] 10.4 g/dL Low 12.0-16.0 [facility] Comment on above: Performed By: #### 9 41607368, 26288110, 83029538, 28714472, 02220396, 1568606160, 5836753, 0001068, 6631982, 2624148, 06325526, 97850007, 48810932, 0731154026, 4164131, 4942391331, 9533128, 92457243, 1280661, 64237408, 6195895860 ####[address] [place] [address] MCH (RBC) [Entitic mass] 28.7 pg Normal 27.0-34.0 [facility] Comment on above: Performed By: #### 9 49319107, 58190889, 60197612, 74845137, 73617021, 4943895437, 0552774, 4520457, 6196783, 7327013, 25131235, 07696800, 35376137, 4465075604, 7383669, 6310144485, 7835663, 62597428, 6667076, 33809640, 2253982196 ####[address] [place] [address] MCHC (RBC) [Mass/Vol] 33.5 g/dL Normal 31.4-36.0 [facility] Comment on above: Performed By: #### 9 77507649, 34379047, 75641510, 20048304, 04110470, 0741168463, 7371758, 6771164, 9595658, 1614768, 05914082, 10126880, 47482645, 4537710545, 3814355, 0817472651, 3570687, 01095793, 7107627, 85496044, 3917890496 ####[address] [place] [address] MCV (RBC) [Entitic vol] 85.7 fL Normal 80.0-100.0 [facility] Comment on above: Performed By: #### 9 38309878, 78515782, 33808303, 31375665, 02235072, 3186618957, 7155637, 2263291, 9154104, 6236256, 49183932, 08190354, 48521912, 6489480576, 7182598, 3797524479, 7604740, 19174750, 4737774, 94576874, 0201097661 ####[address] [address] Platelet mean volume (Bld) [Entitic vol] 7.5 fL Normal 6.4-10.8 [facility] Comment on above: Performed By: #### 9 38435448, 91154780, 08649481, 63456440, 76118700, 5279315898, 9054495, 1607419, 9880315, 8912803, 33741987, 80471581, 53819598, 4741800470, 4927689, 3383681226, 7684830, 46417967, 4968826, 71806254, 1977319849 ####[facility] [address] [place] [address] Platelets (Bld) [#/Vol] 152.0 E9/L Normal 150.0-500. 0 [facility] Comment on above: Performed By: #### 9 55445322, 59422047, 71792457, 36390280, 11508616, 7422442646, 0269330, 7917125, 3647721, 5263162, 13203799, 72473137, 71480244, 6172829087, 1182789, 9577578841, 9524023, 00512446, 7598242, 43760963, 8272455368 ####[address] [place] [address] RBC (Bld) [#/Vol] 3.6 E12/L Low 4.3-5.9 [facility] Comment on above: Performed By: #### 9 76198914, 71217092, 68305125, 57499537, 45091028, 6132729800, 6600419, 0062224, 0929773, 8133798, 03034677, 11634858, 90007837, 3669495904, 3182466, 6272737416, 2699615, 06144159, 8893222, 13167027, [id number] ####[address] [address] WBC corrected for nucl RBC Auto (Bld) [#/Vol] 5.3 E9/L Normal 4.0-11.0 [facility] Comment on above: Performed By: #### 9 18079438, 81033653, 54538813, 39674385, 27980021, 1353804931, 7726700, 2794654, 7737207, 5374234, 16938798, 44073097, 20067003, 7696769100, 8964289, 1741331704, 3404718, 92736939, 4542425, 30330606, 0861542462 ####[address] [place] [address] CHEMISTRYOrdered By: SYSTEM SYSTEM on 01-28-2024 Albumin [Mass/Vol] 4.2 g/dL Normal 3.3 - 5.0 gm/dL [facility] Albumin/Globulin [Mass ratio] 1.8 {ratio} Normal 1.1 - 2.2 [facility] ALP [Catalytic activity/Vol] 112 [iU]/d High 21 - 98 Int._Unit/ L [facility] ALT No additional P-5'-P [Catalytic activity/Vol] 24 [iU]/d Normal 6 - 46 Int._Unit/ L [facility] Anion gap [Moles/Vol] 18 mmol/L High 6 - 16 mEq/L [facility] AST [Catalytic activity/Vol] 31 [iU]/d Normal 5 - 43 Int._Unit/ L [facility] Bilirubin [Mass/Vol] 0.5 mg/dL Normal 0.0 - 1 .1 mg/dL [facility] Calcium [Mass/Vol] 8.7 mg/dL Low 8.9 - 11. 1 mg/dL [facility] Chloride [Moles/Vol] 99 mmol/L Low 101 - 1 11 mmol/L [facility] CO2 [Moles/Vol] 25 mmol/L Normal 21 - 31 mmol/L [facility] Creatinine [Mass/Vol] 1.7 mg/dL High 0.5 - 1.3 mg/dL [facility] eGFR 31 mL/min/1.73 m2 Low >=59mL/min /1.73 m2 [facility] Ferritin [Mass/Vol] 41 ng/mL Normal 11 - 307 ng/mL [facility] Globulin (S) [Mass/Vol] 2.4 g/dL Normal 1.4 - 4.0 gm/dL [facility] Glucose [Mass/Vol] 188 mg/dL Normal 55 - 199 mg/dL [facility] Iron [Mass/Vol] 70 ug/dL Normal 35 - 153 mcg/dL [facility] Iron binding capacity [Mass/Vol] 433 ug/dL High 250 - 400 mcg/dL [facility] Magnesium [Mass/Vol] 1.3 mg/dL Normal 1.3 - 2 .4 mg/dL [facility] Potassium [Moles/Vol] 3.8 mmol/L Normal 3.5 - 5.3 mmol/L [facility] Protein [Mass/Vol] 6.6 g/dL Normal 6.0 - 7.8 gm/dL [facility] Sodium [Moles/Vol] 138 mmol/L Normal 135 - 145 mmol/L [facility] Transferrin [Mass/Vol] 309 mg/dL Normal 200 - 370 mg/dL [facility] Urea nitrogen [Mass/Vol] 36 mg/dL High 5 - 21 mg/dL [facility] Urea nitrogen/Creatinine [Mass ratio] 21 mg/mg High 10 - 20 Rem[facility] CMPon 01-28-2024 Albumin [Mass/Vol] 4.2 g/dL Normal 3.3-5.0 [facility] Comment on above: Performed By: #### 9 [id number], 43123234, 39350647, 51461560, 50973163, 4785091475, 8011799, 3334457, 2594403, 8649011, 52814400, 45263950, 41206081, 0603754873, 8605770, 7436625750, 8219926, 09373129, 7859874, 00392555, [id number] ####[facility] [address] [place] [address] Albumin/Globulin (S) [Mass conc ratio] 1.8 Normal 1.1-2.2 [facility] Comment on above: Performed By: #### 9 [id number], 57159468, 25696376, 49561114, 40183091, 1443218419, 0908350, 0608856, 2596696, 9734003, 31932084, 80496242, 24516494, 3086403399, 5520328, 7611180097, 9047542, 63337315, 8617894, 18553588, 8384832866 ####[facility] [address] [place] [address] ALP [Catalytic activity/Vol] 112 Int._Unit/L High -98 [facility] Comment on above: Performed By: #### 9 21127081, 95891596, 16327525, 77421742, 89570296, 4934245753, 8007821, 1126543, 7285622, 4813844, 67160324, 58415439, 74996510, 3442871353, 7161581, 5739679195, 0412315, 25425009, 6573894, 20556569, [id number] ####[address] [place] [address] ALT No additional P-5'-P [Catalytic activity/Vol] 24 Int._Unit/L Normal 6-46 [facility] Comment on above: Performed By: #### 9 60182638, 53922114, 81377330, 50006932, 84735038, 9652150654, 5916547, 6245763, 4704004, 7145515, 25804981, 80117336, 68567283, 5510688195, 9480837, 1006726000, 7248311, 10235963, 0450491, 62239781, 6405183734 ####[address] [address] Anion gap [Moles/Vol] 18 mmol/L High 6-16 [facility] Comment on above: Performed By: #### 9 11462323, 45273744, 18696660, 41076724, 99401021, 5477686630, 6787794, 3798315, 1638621, 4249493, 59515510, 48458005, 12817913, 2114226848, 7150663, 7529027366, 2266272, 88359006, 3209424, 94160223, 8899223055 ####[address] [place] [address] AST [Catalytic activity/Vol] 31 Int._Unit/L Normal 5-43 [facility] Comment on above: Performed By: #### 9 59894836, 94202390, 16732673, 84720143, 43348633, 8797494610, 8435689, 5592223, 2823067, 6441759, 13262632, 28468389, 12398227, 7364597633, 6509723, 8655996218, 5665407, 26922605, 1480160, 89253887, 7997286417 ####[facility] [address] [place] [address] Bilirubin [Mass/Vol] 0.5 mg/dL Normal 0.0-1.1 [facility] Comment on above: Performed By: #### 9 33140297, 32084872, 33800575, 51810680, 25659192, 6494469562, 9475753, 3348687, 1591695, 6341690, 21123796, 83245971, 63420178, 1575359438, 2821112, 6396972616, 8921769, 89423528, 5198497, 98512269, 0383414182 ####[facility] [address] [place] [address] Calcium [Mass/Vol] 8.7 mg/dL Low 8.9-11.1 [facility] Comment on above: Performed By: #### 9 67158389, 79471057, 62571734, 14947728, 16053630, 7325487286, 5930788, 0152640, 3427001, 5684850, 05830410, 89449110, 78663836, 6116933637, 0831811, 4261094621, 3316412, 13046712, 7816664, 30662645, 9272447674 ####[facility] [address] [place] [address] Chloride [Moles/Vol] 99 mmol/L Low 101-111 [facility] Comment on above: Performed By: #### 9 70597829, 47531642, 18826025, 36797323, 97020124, 3754363199, 9889191, 4262623, 9410495, 0807461, 47514756, 20732475, 63774724, 4600007185, 5634246, 3824520323, 4627068, 12803378, 2976978, 51021752, 6487679511 ####[facility] [address] [place] [address] CO2 [Moles/Vol] 25 mmol/L Normal 21-31 [facility] Comment on above: Performed By: #### 9 83215702, 00606129, 67858732, 98986175, 25285729, 7566888103, 3082079, 1918420, 0400012, 6940869, 79708946, 72903476, 04571176, 2740215770, 5479794, 7408399381, 6263462, 04498045, 4323146, 83817712, 0397667960 ####[facility] [address] [place] [address] Creatinine [Mass/Vol] 1.7 mg/dL High 0.5-1.3 [facility] Comment on above: Performed By: #### 9 82444482, 26009187, 77338627, 81649973, 54428344, 1615445973, 9883331, 1330964, 9402803, 0269696, 17440804, 13097259, 37869604, 2159486529, 5226581, 1829306492, 1259713, 52727958, 7025666, 73395615, 7839938646 ####[facility] [address] [place] [address] Globulin (S) [Mass/Vol] 2.4 g/dL Normal 1.4-4.0 [facility] Comment on above: Performed By: #### 9 71214299, 28719223, 38548212, 91164900, 39615286, 8521393723, 6772725, 9986056, 2068493, 2353814, 81068500, 34669101, 81333525, 2467842869, 5031954, 5530235521, 5002725, 59391114, 9485800, 25985399, 0700465905 ####[facility] [address] [place] [address] Glucose [Mass/Vol] 188 mg/dL Normal 55-199 [facility] Comment on above: Performed By: #### 9 60142072, 38084865, 33251533, 94634272, 16995474, 1481543482, 0131226, 6367647, 4801061, 3997861, 94255175, 84834574, 28316626, 6849401409, 3841623, 0133818299, 3350034, 63831848, 5494063, 22372965, 0708888023 ####[facility] [address] [place] [address] Potassium [Moles/Vol] 3.8 mmol/L Normal 3.5-5.3 [facility] Comment on above: Performed By: #### 9 08049018, 33337676, 18106127, 03660007, 04495063, 0984853461, 2657652, 1506574, 9951439, 5066646, 01392654, 31605268, 78186265, 2477646357, 7471801, 1630136905, 0333761, 99478289, 6684760, 34748397, 9637571848 ####[address] [place] [address] Protein [Mass/Vol] 6.6 g/dL Normal 6.0-7.8 [facility] Comment on above: Performed By: #### 9 41818403, 29249986, 60582431, 75540702, 97935269, 5245465949, 7397966, 7470841, 2668196, 0337725, 25223482, 00041749, 68091807, 5035878508, 7370671, 7939685626, 5263914, 22326369, 6684817, 29149866, 8360227507 ####[address] [place] [address] Sodium [Moles/Vol] 138 mmol/L Normal 135-145 [facility] Comment on above: Performed By: #### 9 31673727, 42862300, 75651902, 97511299, 72257134, 2139109713, 8873631, 7878132, 2648510, 4324166, 90773733, 46128880, 69343169, 4592939607, 3303287, 1081015152, 0450919, 38033810, 1394374, 44110417, 1308185192 ####[facility] [address] [place] [address] Urea nitrogen [Mass/Vol] 36 mg/dL High 5-21 [facility] Comment on above: Performed By: #### 9 78845225, 56114118, 54215627, 89319853, 98201299, 4860316506, 5675754, 6105494, 8812722, 1719530, 93064014, 94216773, 64035943, 1179311395, 2830250, 4947140950, 9037155, 99229364, 7763541, 90884129, 1891515751 ####[facility] [address] [place] [address] Urea nitrogen/Creatinine [Mass ratio] 21 No Units High 10-20 [facility] Comment on above: Performed By: #### 9 88600208, 42254567, 56299384, 82833386, 25037097, 5168814478, 8564980, 1413907, 7488791, 0970311, 27409903, 60938412, 54232291, 3874025764, 2253254, 8461626143, 8670320, 28650740, 9848056, 64271648, 2500572916 ####[facility] [address] [place] [address] COAGULATIONOrdered By: Monica Gomez on 01-28-2024 INR Coag (PPP) [Relative time] 1.10 {INR} Invalid Interpretation Code [facility] Auto Coag Comment on above: Interpretive Data: I NR results are specifically intended to assess patients stabilized on long-term Anticoagulation therapy suggested INR s Less Intensive Anticoagulation 2.0 3.0 Conventional Range 3.0 4.5 PT Coag (PPP) [Time] 12.3 s Normal 9.4 - 1 2.5 second(s) [facility] Auto [facility]ag Comment on above: Interpretive Data: 1 5 days - 4 weeks 1 - 5 months 6 -11 months 1 5 years 6 10 years 11 -17 years Mean: 11.2 (9.5 12.6) Mean: 11.0 (9.7 12.8) Mean: 11.0 (9.8 13.0) Mean: 11.3 (9.9 13.4) Mean: 11.7 (10.0 14.6) Mean: 11.8 (10.0 - 14.1) Pediatric Reference ranges were obtained from a study by Manuel Jeffries et al. prepared from 1437 samples obtained at 7 different centers using the same coagulation reagent and instrumentation as [facility]. Currently there are no coagulation studies available worldwide for children to 14 days, and no normal ranges. Consent for Treatmenton 01-14 Consent for Treatment [id number] Normal [facility] Consent for Treatment [id number]#1.00TIFF Normal [facility] Ferritinon 01-28-2024 Ferritin [Mass/Vol] 41 ng/mL Normal 11-307 [facility] Comment on above: Performed By: #### 9 76580464, 19807890, 92870417, 25678972, 71579547, 8033643217, 6660275, 3744920, 7802880, 7091089, 87484791, 66420645, 57216628, 2730351865, 2687898, 0715254783, 9743260, 76159219, 4895904, 31696101, 0213498571 ####[facility] [address] [place] [address] HEMATOLOGYOrdered By: SYSTEM SYSTEM on 01-28-2024 Erythrocyte distribution width (RBC) [Ratio] 17.1 % High 10.9 - 14.2 % Remisol Heme Hematocrit (Bld) [Volume fraction] 31.2 % Low 34.0 - 46.0 % Remisol Heme Hemoglobin (Bld) [Mass/Vol] 10.4 g/dL Low 12.0 - 16.0 gm/dL Remisol Heme MCH (RBC) [Entitic mass] 28.7 pg Normal 27.0 - 34.0 pg Remisol Heme MCHC (RBC) [Mass/Vol] 33.5 g/dL Normal 31.4 - 36.0 gm/dL Remisol Heme MCV (RBC) [Entitic vol] 85.7 fL Normal 80.0 - 100.0 fL Remisol Heme Platelet mean volume (Bld) [Entitic vol] 7.5 fL Normal 6.4 - 10.8 fL Remisol Heme Platelets (Bld) [#/Vol] 152.0 E9/L Normal 150.0 - 500.0 E9/L Remisol Heme RBC (Bld) [#/Vol] 3.6 E12/L Low 4.3 - 5.9 E12/L Remisol Heme WBC corrected for nucl RBC Auto (Bld) [#/Vol] 5.3 E9/L Normal 4.0 - 11.0 E9/L Remisol Heme Ironon 01-28-2024 Iron [Mass/Vol] 70 microgram/dL Normal 35-153 [facility] Comment on above: Performed By: #### 9 53902094, 04103067, 01723214, 84272792, 93619621, 3716635205, 2060304, 4358041, 4245521, 5423826, 16145343, 37207528, 07003042, 1439756789, 9864364, 6567812258, 5150207, 72751003, 6137828, 74272225, 4542369626 ####[facility] [address] [place] [address] Magnesiumon 01-28-2024 Magnesium [Mass/Vol] 1.3 mg/dL Normal 1.3-2.4 [facility] Comment on above: Performed By: #### 2 465748 ####[facility] [address] [place] [address] PTon 01-28-2024 INR Coag (PPP) [Relative time] 1.10 {INR} Invalid Interpretation Code [facility] Comment on above: Result Comment: INR results are specifically intended to assess patients stabilized on long-term Anticoagulation therapy suggested INR?s ?Less Intensive Anticoagulation? 2.0 ? 3.0 Conventional Range 3.0 ? 4.5 Performed By: #### 9 05750404, 24282121, 09398593, 38581687, 24102131, 8678266410, 1693715, 6371724, 2649676, 8433974, 88665206, 84306091, 27271781, 2315118280, 6250792, 5713208780, 6211410, 48320816, 0612478, 32092765, 7559133254 ####[facility] [address] [place] [address] PT Coag (PPP) [Time] 12.3 second(s) Normal 9.4-12.5 [facility] Comment on above: Result Comment: 15 d ays - 4 weeks 1 - 5 months 6 -11 months 1 ? 5 years 6 ? 10 years 11 -17 years Mean: 11.2 (9.5 ? 12.6) Mean: 11.0 (9.7 ? 12.8) Mean: 11.0 (9.8 ? 13.0) Mean: 11.3 (9.9 ? 13.4) Mean: 11.7 (10.0 ? 14.6) Mean: 11.8 (10.0 - 14.1) Pediatric Reference ranges were obtained from a study by Manuel Jeffries et al. prepared from 1437 samples obtained at 7 different centers using the same coagulation reagent and instrumentation as [facility]. Currently there are no coagulation studies available worldwide for children to 14 days, and no normal ranges. Performed By: #### 9 02303088, 74487006, 27775496, 50178824, 42110087, 5557113262, 5244273, 8620744, 0226580, 8348504, 51047860, 24817930, 90224752, 4804111380, 4650351, 5677168397, 6642123, 36576559, 5596463, 43408491, 3988778496 ####[facility] [address] [place] [address] Physician Orderon 01-28-2024 Physician Order [id number]#1.00TIFF Normal [facility] TIBC Calculatedon 01-28-2024 Iron binding capacity [Mass/Vol] 433 microgram/dL High 250-400 [facility] Comment on above: Performed By: #### 9 92147686, 44517505, 65366786, 55788882, 87888398, 5773351131, 1617607, 3670401, 2974846, 9172208, 24799504, 14141330, 53170166, 9198981783, 9795722, 9723548254, 5263069, 86914617, 2841083, 57407015, 1492211325 ####[facility] [address] [place] [address] Transferrin [Mass/Vol] 309 mg/dL Normal 200-370 [facility] Comment on above: Performed By: #### 9 75754662, 55910290, 34435007, 14998524, 74149442, 9535622329, 3665461, 9242267, 7611108, 0087282, 36223551, 51312491, 21080719, 7854533485, 0939856, 9072821993, 4345720, 42487282, 6912985, 10259703, 8845383332 ####[facility] [address] [place] [address] US Liveron 01-28-2024 US Liver Exam Date/Time: 01/28/2024 09:31 EDT Reason for Exam: K76.0;Other (please specify) Report IMPRESSION: THE COMMON BILE DUCT IS SLIGHTLY LARGER THAN THE PRIOR STUDY AND LIVER IS ALSO SLIGHTLY LARGER THAN ON THE PRIOR ULTRASOUND. RECOMMEND CLOSE CORRELATION WITH LIVER FUNCTION STUDIES AND MAY CONSIDER CT OR MRI IMAGING. CLINICAL HISTORY: K76.0 TECHNIQUE: Grayscale images and Doppler images of the right upper quadrant were obtained in multiple planes. COMPARISON: Ultrasound from 02/03/2023 FINDINGS: The liver is normal in sonographic appearance. Maximum diameter is 20.4 cm, previously 17.3 cm. There are no focal solid or cystic lesions. There is no intra or extrahepatic bile duct dilatation. The common bile duct measures 13 mm which is larger than on the prior study where this measured at 7 mm. No biliary filling defects are noted on the current study. There is no free fluid. Status post cholecystectomy. Ordering Provider: , FINAL REPORT Dictated: 01/28/2024 12:43 pm Siva Pulliam MD, V. Signed (Electronic Signature): 01/28/2024 12:43 pm Signed by: Siva Pulliam MD, V. Transcribed by: CHRISTINE Technologist: FLAKITA Amaral [facility] eGFRon 01-28-2024 eGFR 31 mL/min/1.73 m2 Low >=59 [facility] Comment on above: Order Comment: Order added by Discern Expert. Performed By: #### 9 [id number], 53725052, 87896052, 72371894, 02817876, 0332707745, 1995044, 3185304, 7018542, 5446968, 13638647, 94479936, 36892233, 1031297874, 8756146, 5062910586, 7404436, 72810538, 7912480, 49855147, 3038534137 ####[facility] [address] [place] [address] Ambulatory Visit Summaryon 0 12-07-2023 Ambulatory Visit Summary ANH TEJEDA :1950 Visit Date:12/07/2023 Ambulatory Visit Instructions Your Diagnosis Fatty liver Anemia Chronic GERD History of rectal polyps Tests Performed Scnky-5-Glggrvdpkdg -- Results Pending -- MAXX w/Reflex if POS -- Results Pending -- Antimitochondrial Antibody, Quantitative -- Results Pending -- CBC w/ Indices -- Results Pending -- Celiac Disease Comprehensive -- Results Pending -- Ceruloplasmin -- Results Pending -- CMP -- Results Pending -- Ferritin -- Results Pending -- HBV Core Ab -- Results Pending -- HCV Antibody RFX to Quant PCR -- Results Pending -- HCV Genotyping Non Reflex -- Results Pending -- HCV RNA by PCR, Qn Rfx Arlet -- Results Pending -- Hepatitis B Surface Antibody -- Results Pending -- Hepatitis B Surface Antigen -- Results Pending -- HIV Screen 4th Generation wRfx -- Results Pending -- Iron Level -- Results Pending -- PT -- Results Pending -- Smooth Muscle Antibody Screen -- Results Pending -- TIBC Calculated -- Results Pending -- Transferrin -- Results Pending -- Please visit your patient portal for your results or contact your primary care physician. Your Care Team Attending Physician - Nisa [...] mg Cap-DR) ropinirole (ropinirole 0.5 mg Tab) sitagliptin (Januvia 50 mg Tab) Procedures Performed Colonoscopy (06/12/2022), Esophagogastroduodenoscopy (06/12/2022), Scar management. Discharge Vitals Temperature (Temporal Artery) 36 ?C Heart Rate (Peripheral) 92 Blood Pressure 122/74 Height 160 cm Height 63 in Weight 97.3 kg Weight 214.06 lb BMI 38.01 What to do next Scheduled Follow-Up Appointments 2023 9:00 AM EDT With: Where: [facility] Thursday 9:20 AM EDT With: Nisa Miranda CNP Where: [facility] Normal [facility] Gastroenterology Office/Clin ic Noteon 12-07-2023 Gastroenterology Office/Clinic Note Chief Complaint GERD and nausea HPI Staff This is a 72 year old female who presents today for a follow-up. Patient was last seen 12/24/22 for GERD, nausea improved and B12 deficiency. Anemia is managed by [facility]. History of Present Illness Patient is a 72-year-old female who presents for follow-up. Patient was previously evaluated by Dr. Russell 03/2023 and has history of chronic GERD. Review of records from visit with Dr. Russell indicated patient with fatty liver and mildly elevated alk phos. Ultrasound of abdomen 01/2023 revealed fatty liver. Patient was ordered FibroScan. FibroScan completed 04/22/2023 revealed F3 fibrosis, moderate steatosis. PMH of gout, hypertension, DM, type 2, HLD?managed by patient's PCP. Previous iron studies completed at outside facility 06/2022 that revealed elevated reticulocyte count, slightly elevated alk phos?patient reported she was following up with her PCP regarding, normal iron level, normal ferritin level, normal folate level. Labs from 01/2022 revealed low H&H of 10.4/30.6, platelets low at 138, and RDW elevated at 17.2. Previous review of outside labs which were completed 10/2023 revealed normal LFTs, elevated BUN of 48?patient to follow-up with PCP regarding, elevated creatinine of 1.61?patient to follow-up with PCP regarding, low H&H of 10.7/32.5, normal ferritin level. GES 12/2022 was normal. EGD completed 06/12/2022 revealed normal esophagus, multiple gastric polyps that biopsy revealed were fundic gland polyps, normal duodenum. Colonoscopy completed 06/12/2022 revealed tubular adenoma removed from rectum, diverticulosis, hemorrhoids?Dr. Russell recommended for patient to have repeat colonoscopy in 7 years?2028. Previous review of outside records indicated patient had previous [...] previously evaluated by hematology?KARO Chaudhari 12/12/22. Patient reported during most recent visit with me that her acid reflux was well-controlled with omeprazole 20 mg daily. She reported history of cholecystectomy 40 years ago. During today's visit, patient reports her acid reflux is well-controlled with omeprazole 20mg daily. Uses tums OTC as needed occasionally for acid reflux. Nausea has improved. Is having 1 formed BM daily. Has rare occasions of diarrhea. Reports she has changed her diet by avoiding sugary soda. Has lost approximately 15 pounds in the last year. Denies ETOH. Denies black/bloody stools, vomiting, fevers/chills, abdominal pain, and denies unintentional weight loss. Denies having any other GI complaints. Review of Systems PHQ Score Initial Depression Screen Score: 0 SCORE ROS - Provider Constitutional: no fever, no chills. Skin: no Jaundice. ENMT: Denies dysphagia and heartburn. Respiratory: no shortness of breath. Cardiovascular: no chest pain. Gastrointestinal: improved nausea, no vomiting, no diarrhea, no GI bleeding. Physical Exam Vitals & Measurements T: 36 ?C(Temporal Artery) HR: 92(Peripheral) BP: 122/74 HT: 63 in HT: 160 cm WT: 97.3 kg WT: 214.06 lb BMI: 38.01 General: Well developed, well nourished, in no acute distress Head: Normocephalic/atraumatic Lungs: Normal respiratory effort and clear to auscultation Cardio: Regular rate and rhythm, normal S1 and S2, no murmur, no rub Abdomen: Soft, non-distended, non-tender. Normoactive bowel sounds present in all 4 abdominal quadrants, bilaterally. Mental Status: Alert and oriented x3. Normal mood and affect Assessment/Plan 1. Fatty liver (K76.0: Fatty (change of) liver, not elsewhere classified) Reportedly lost 15 pounds in the last year. Ultrasound of abdomen 01/2023 revealed fatty liver. FibroScan completed 04/22/2023 revealed F3 fibrosis, moderate steatosis. Labs 10/2023 revealed normal LFTs, elevated BUN of 48?patient to follow-up with PCP regarding, elevated creatinine of 1.61?patient to follow-up with PCP regarding, low H&H of 10.7/32.5, normal ferritin level. Ordered Chronic liver disease panel. Discussed referral for possible bariatric surgery/weight loss medications- declines referral at this time. Ordered ultrasound of liver. Avoid ETOH. Educated regarding healthy diet/exercise, weight loss of 10%. Educated regarding Mediterranean diet. Educated to follow-up with PCP for optimization of chronic conditions. Ordered: Tpwix-5-Ftnofldxyjm MAXX w/Reflex if POS Antimitochondrial Antibody, Quantitative CBC w/ Indices Celiac Disease Comprehensive Ceruloplasmin Comprehensive Metabolic Panel Ferritin HBV Core Ab HCV Antibody RFX to Quant PCR HCV Genotyping Non Reflex HCV RNA by PC (more content not included)... Normal [facility] Comment on above: Result Comment: Elec tronically Signed By: Nisa Miranda CNP.kendal\Date and Time Signed: 12/07/23 09:31 EST Patient Educationon 12-07-19 Patient Education Hematology Anemia Anemia is a condition in which [...] the causes? Common causes of anemia include: ? Excessive bleeding. Anemia can be caused by excessive bleeding inside or outside the body, including bleeding from the intestines or from heavy menstrual periods in females. ? Poor nutrition. ? Long-lasting (chronic) kidney, thyroid, and liver disease. ? Bone marrow disorders, spleen problems, and blood disorders. ? Cancer and treatments for cancer. ? Human immunodeficiency virus (HIV) and acquired immunodeficiency syndrome (AIDS). ? Infections, medicines, and autoimmune disorders that destroy red blood cells. What are the signs or symptoms? Symptoms of this condition include: ? Minor weakness. ? Dizziness. ? Headache, or difficulties concentrating and sleeping. ? Heartbeats that feel irregular or faster than normal (palpitations). ? Shortness of breath, especially with exercise. ? Pale skin, lips, and nails, or cold hands and feet. ? Upset stomach (indigestion) and nausea. Symptoms may [...] of your bleeding. Other tests may include: ? Imaging tests, such as a CT scan or MRI. ? A procedure to see inside your esophagus and stomach (endoscopy). The esophagus is the part of the body that moves food from your mouth to your stomach. ? A procedure to see inside your colon and rectum (colonoscopy). How is this treated? Treatment for this condition depends on the cause. If you continue to lose a lot of blood, you may need to be treated at a hospital. Treatment may include: ? Taking supplements of iron, vitamin B12, or folic acid. ? Taking a hormone medicine (erythropoietin) that can help to stimulate red blood cell growth. ? Receiving donated blood through an IV (blood transfusion). This may be needed if you lose a lot of blood. ? Making changes to your diet. ? Having surgery to remove your spleen. Follow these instructions at home: ? Take gpdx-ioa-hviralg and prescription medicines only as told by your health care provider. ? Take supplements only as told by your health care provider. ? Follow any diet instructions that you were given by your health care provider. ? Keep all follow-up visits. Your health care provider will want to recheck your blood tests. Contact a health care provider if: ? You develop new bleeding anywhere in the body. ? You are very weak. Get help right away if: ? You are short of breath. ? You have pain in your abdomen or chest. ? You are dizzy or feel faint. ? You have trouble concentrating. ? You have bloody stools, black stools, or tarry stools. ? You vomit repeatedly or you vomit up blood. These symptoms may be an emergency. Get help right away. Call 911. ? Do not wait to see if the symptoms will go away. ? Do not drive yourself to the hospital. Summary ? Anemia is a condition in which you do not have enough red blood cells or enough of a substance in your red blood cells that carries oxygen. ? Symptoms may occur suddenly or develop slowly. ? If your anemia is mild, you may not have symptoms. ? This condition is diagnosed with blood tests, a medical history, and a physical exam. Other tests may be needed. ? Treatment for this condition depends on the cause of the anemia. This information is not intended to replace advice given to you by your health care provider. Make sure you discuss any questions you have with your health care provider. Document Revised: 01/26/2023 Document Reviewed: 01/26/2023 Elsevier Patient Education ? 2022 [employer] [facility] Lab Reportson 11-05-2023 Lab Reports [id number] [facility] CNPNon 10-26-2023 CNPN Telephone (HEMASA) ANH TEJEDA ([id number]) 1950 F Date Time Provider Department 10/26/23 [...] Status:Closed by SAMANTHA MCMAHAN on 10/26/23 Normal [facility] CBC W Auto Differential pane l (Bld)on 10-23-2023 Basophils (Bld) [#/Vol] 0.03 10*3/uL Normal <0.11 [facility] Comment on above: Order Comment: Speci men Type: BLOOD SPECIMENOrdering Facility: [facility] Address: [address] [place] [address] [place] [address] Performed By: #### 5 7021-8 ####[facility] LABCLIA [id number] [place] [address] Basophils/100 WBC (Bld) 0.3 % Normal [facility] Comment on above: Order Comment: Speci men Type: BLOOD SPECIMENOrdering Facility: [facility] Address: [address] [place] [address] Performed By: #### 5 7021-8 ####[facility] LABCLIA [id number] [place] [address] Differential cell count method Nom (Bld) Auto Normal [facility] Comment on above: Order Comment: Speci men Type: BLOOD SPECIMENOrdering Facility: [facility] Address: [address] [place] [address] Performed By: #### 5 7021-8 ####[facility] LABCLIA [id number] [place] [address] Eosinophils (Bld) [#/Vol] 0.03 10*3/uL Normal <0.46 [facility] Comment on above: Order Comment: Speci men Type: BLOOD SPECIMENOrdering Facility: [facility] Address: [address] [place] [address] Performed By: #### 5 7021-8 ####[facility] LABCLIA [id number] [place] [address] Eosinophils/100 WBC (Bld) 0.3 % Normal [facility] Comment on above: Order Comment: Speci men Type: BLOOD SPECIMENOrdering Facility: [facility] Address: [address] [place] [address] Performed By: #### 5 7021-8 ####[facility] LABCLIA [id number] [place] [address] Erythrocyte distribution width (RBC) [Ratio] 16.0 % High 11.5-15.0 [facility] Comment on above: Order Comment: Speci men Type: BLOOD SPECIMENOrdering Facility: [facility] Address: [address] [place] [address] Performed By: #### 5 7021-8 ####[facility] LABCLIA [id number] [place] [address] Hematocrit (Bld) [Volume fraction] 32.5 % Low 36.0-46.0 [facility] Comment on above: Order Comment: Speci men Type: BLOOD SPECIMENOrdering Facility: [facility] Address: [address] [place] [address] Performed By: #### 5 7021-8 ####[facility] LABCLIA [id number] [place] [address] Hemoglobin (Bld) [Mass/Vol] 10.7 g/dL Low 11.5-15.5 [facility] Comment on above: Order Comment: Speci men Type: BLOOD SPECIMENOrdering Facility: [facility] Address: [address] [place] [address] Performed By: #### 5 7021-8 ####[facility] LABCLIA [id number] [place] [address] Immature granulocytes (Bld) [#/Vol] 0.13 10*3/uL High <0.10 [facility] Comment on above: Order Comment: Speci men Type: BLOOD SPECIMENOrdering Facility: [facility] Address: [address] [place] [address] Performed By: #### 5 7021-8 ####[facility] LABCLIA [id number] [place] [address] Immature granulocytes/100 WBC (Bld) 1.2 % Normal [facility] Comment on above: Order Comment: Speci men Type: BLOOD SPECIMENOrdering Facility: [facility] Address: [address] [place] [address] Performed By: #### 5 7021-8 ####[facility] LABCLIA [id number] [place] [address] Lymphocytes (Bld) [#/Vol] 1.31 10*3/uL Normal 1.00-4.00 [facility] Comment on above: Order Comment: Speci men Type: BLOOD SPECIMENOrdering Facility: [facility] Address: [address] [place] [address] Performed By: #### 5 7021-8 ####[facility] LABCLIA [id number] [place] [address] Lymphocytes/100 WBC (Bld) 12.1 % Normal [facility] Comment on above: Order Comment: Speci men Type: BLOOD SPECIMENOrdering Facility: [facility] Address: [address] [place] [address] Performed By: #### 5 7021-8 ####[facility] LABCLIA [id number] [place] [address] MCH (RBC) [Entitic mass] 28.2 pg Normal 26.0-34.0 [facility] Comment on above: Order Comment: Speci men Type: BLOOD SPECIMENOrdering Facility: [facility] Address: [address] [place] [address] Performed By: #### 5 7021-8 ####[facility] LABCLIA [id number] [place] [address] MCHC (RBC) [Mass/Vol] 32.9 g/dL Normal 30.5-36.0 [facility] Comment on above: Order Comment: Speci men Type: BLOOD SPECIMENOrdering Facility: [facility] Address: [address] [place] [address] Performed By: #### 5 7021-8 ####[facility] LABCLIA [id number] [place] [address] MCV (RBC) [Entitic vol] 85.8 fL Normal 80.0-100.0 [facility] Comment on above: Order Comment: Speci men Type: BLOOD SPECIMENOrdering Facility: [facility] Address: [address] [place] [address] Performed By: #### 5 7021-8 ####[facility] LABCLIA [id number] [place] [address] Monocytes (Bld) [#/Vol] 0.37 10*3/uL Normal <0.87 [facility] Comment on above: Order Comment: Speci men Type: BLOOD SPECIMENOrdering Facility: [facility] Address: [address] [place] [address] Performed By: #### 5 7021-8 ####[facility] LABCLIA [id number] [place] [address] Monocytes/100 WBC (Bld) 3.4 % Normal [facility] Comment on above: Order Comment: Speci men Type: BLOOD SPECIMENOrdering Facility: [facility] Address: [address] [place] [address] Performed By: #### 5 7021-8 ####[facility] LABCLIA [id number] [place] [address] Neutrophils (Bld) [#/Vol] 8.95 10*3/uL High 1.45-7.50 [facility] Comment on above: Order Comment: Speci men Type: BLOOD SPECIMENOrdering Facility: [facility] Address: [address] [place] [address] Performed By: #### 5 7021-8 ####[facility] LABCLIA [id number] [place] [address] Neutrophils/100 WBC (Bld) 82.7 % Normal [facility] Comment on above: Order Comment: Speci men Type: BLOOD SPECIMENOrdering Facility: [facility] Address: [address] [place] [address] Performed By: #### 5 7021-8 ####[facility] LABIA [id number] [place] [address] Nucleated RBC (Bld) [#/Vol] 10*3/uL Normal <0.01 [facility] Comment on above: Order Comment: Speci men Type: BLOOD SPECIMENOrdering Facility: [facility] Address: [address] [place] [address] Performed By: #### 5 7021-8 ####[facility] LABCLIA [id number] [place] [address] Nucleated RBC/100 WBC (Bld) [Ratio] 0.0 /100 WBC Normal [facility] Comment on above: Order Comment: Speci men Type: BLOOD SPECIMENOrdering Facility: [facility] Address: [address] [place] [address] Performed By: #### 5 7021-8 ####[facility] LABCLIA [id number] [place] [address] Platelet mean volume (Bld) [Entitic vol] 9.0 fL Normal 9.0-12.7 [facility] Comment on above: Order Comment: Speci men Type: BLOOD SPECIMENOrdering Facility: [facility] Address: [address] [place] [address] Performed By: #### 5 7021-8 ####[facility] LABCLIA [id number] [place] [address] Platelets (Bld) [#/Vol] 175 10*3/uL Normal 150-400 [facility] Comment on above: Order Comment: Speci men Type: BLOOD SPECIMENOrdering Facility: [facility] Address: [address] [place] [address] Performed By: #### 5 7021-8 ####[facility] LABCLIA [id number] [place] [address] RBC (Bld) [#/Vol] 3.79 10*6/uL Low 3.90-5.20 [facility] Comment on above: Order Comment: Speci men Type: BLOOD SPECIMENOrdering Facility: [facility] Address: [address] [place] [address] Performed By: #### 5 7021-8 ####[facility] LABCLIA [id number] [place] [address] WBC (Bld) [#/Vol] 10.82 10*3/uL Normal 3.70-11.00 [facility] Comment on above: Order Comment: Speci men Type: BLOOD SPECIMENOrdering Facility: [facility] Address: [place] [address] Performed By: #### 5 7021-8 ####[facility] LABCLIA [id number] [place] [address] CNOVSPon 10-23-2023 CNOVSP Visit (SP) Office (H EMASA) ANH TEJEDA ([id number]) 1950 F Date Time Provider Department 10/23/23 2:30 PM DAKSHA BRIDGES During your visit today, we recorded the following information about you: Temperature Pulse Respiration Blood pressure 97.2 degrees 86/minute 16/minute 141/59 Weight Height 96.8 kg 1.58 m Daksha Bridges PA-C 10/23/2023 3:25 PM Signed PATIENT NAME: Anh Tejeda [facility] NO.: [id number] ATTENDING PHYSICIAN: Henry Walker MD DATE OF SERVICE: May 01, [...] Date Value (more content not included)... Normal [facility] Comprehensive metabolic 2000 panelon 10-23-2023 Albumin [Mass/Vol] 4.4 g/dL Normal 3.9-4.[address] [facility] Comment on above: Order Comment: Speci men Type: BLOOD SPECIMENOrdering Facility: [facility] Address: [address] [place] [address] Performed By: #### 2 4323-8 ####[facility] LABCLIA [id number] [place] [address] ALP [Catalytic activity/Vol] 112 U/L Normal 34-123 [facility] Comment on above: Order Comment: Speci men Type: BLOOD SPECIMENOrdering Facility: [facility] Address: [address] [place] [address] Performed By: #### 2 4323-8 ####[facility] LABCLIA [id number] [place] [address] ALT [Catalytic activity/Vol] 16 U/L Normal 7-38 [facility] Comment on above: Order Comment: Speci men Type: BLOOD SPECIMENOrdering Facility: [facility] Address: [address] [place] [address] Performed By: #### 2 4323-8 ####[facility] LABCLIA [id number] [place] [address] Anion gap [Moles/Vol] 13 mmol/L Normal 9-18 [facility] Comment on above: Order Comment: Speci men Type: BLOOD SPECIMENOrdering Facility: [facility] Address: [address] [place] [address] Performed By: #### 2 4323-8 ####[facility] LABCLIA [id number] [place] [address] AST [Catalytic activity/Vol] 20 U/L Normal 13-35 [facility] Comment on above: Order Comment: Speci men Type: BLOOD SPECIMENOrdering Facility: [facility] Address: [address] [place] [address] Performed By: #### 2 4323-8 ####[facility] LABCLIA [id number] [place] [address] Bilirubin [Mass/Vol] 0.3 mg/dL Normal 0.2-1.3 [facility] Comment on above: Order Comment: Speci men Type: BLOOD SPECIMENOrdering Facility: [facility] Address: [address] [place] [address] Performed By: #### 2 4323-8 ####[facility] LABCLIA [id number] [place] [address] Calcium [Mass/Vol] 9.8 mg/dL Normal 8.5-10.[address] [facility] Comment on above: Order Comment: Speci men Type: BLOOD SPECIMENOrdering Facility: [facility] Address: [address] [place] [address] Performed By: #### 2 4323-8 ####[facility] LABCLIA [id number] [place] [address] Chloride [Moles/Vol] 99 mmol/L Normal 97-105 [facility] Comment on above: Order Comment: Speci men Type: BLOOD SPECIMENOrdering Facility: [facility] Address: [address] [place] [address] Performed By: #### 2 4323-8 ####[facility] LABCLIA [id number] [place] [address] CO2 [Moles/Vol] 28 mmol/L Normal 22-30 [facility] Comment on above: Order Comment: Speci men Type: BLOOD SPECIMENOrdering Facility: [facility] Address: [address] [place] [address] Performed By: #### 2 4323-8 ####[facility] LABCLIA [id number] [place] [address] Creatinine [Mass/Vol] 1.61 mg/dL High 0.58-0.96 [facility] Comment on above: Order Comment: Speci men Type: BLOOD SPECIMENOrdering Facility: [facility] Address: [address] [place] [address] Performed By: #### 2 4323-8 ####[facility] LABCLIA [id number] [place] [address] Creatinine and Glomerular filtration rate.predicted panel (S/P/Bld) 33 mL/min/1.73m??? Low >=60 [facility] Comment on above: Order Comment: Speci men Type: BLOOD SPECIMENOrdering Facility: [facility] Address: [address] [place] [address] Result Comment: Maru mated Glomerular Filtration Rate [...] accurately reflect actual GFR. Performed By: #### 2 4323-8 ####[facility] LABCLIA [id number] [place] [address] Glucose [Mass/Vol] 167 mg/dL High 74-[address] [facility] Comment on above: Order Comment: Speci men Type: BLOOD SPECIMENOrdering Facility: [facility] Address: [address] [place] [address] Result Comment: The [place] [employer] (ADA) provides guidance for cutoff [...] Standards of Medical Care in Diabetes 2016, [place] [employer]. Diabetes Care. 2016.39(Suppl 1). Performed By: #### 2 4323-8 ####[facility] LABCLIA [id number] [place] [address] Potassium [Moles/Vol] 4.7 mmol/L Normal 3.7-5.1 [facility] Comment on above: Order Comment: Speci men Type: BLOOD SPECIMENOrdering Facility: [facility] Address: [address] [place] [address] Performed By: #### 2 4323-8 ####[facility] LABCLIA [id number] [place] [address] Protein [Mass/Vol] 7.3 g/dL Normal 6.3-8.[address] [facility] Comment on above: Order Comment: Speci men Type: BLOOD SPECIMENOrdering Facility: [facility] Address: [address] [place] [address] Performed By: #### 2 4323-8 ####[facility] LABCLIA [id number] [place] [address] Sodium [Moles/Vol] 140 mmol/L Normal 136-[address] [facility] Comment on above: Order Comment: Speci men Type: BLOOD SPECIMENOrdering Facility: [facility] Address: [address] [place] [address] Performed By: #### 2 4323-8 ####[facility] LABCLIA [id number] [place] [address] Urea nitrogen [Mass/Vol] 48 mg/dL High 7-21 [facility] Comment on above: Order Comment: Speci men Type: BLOOD SPECIMENOrdering Facility: [facility] Address: [address] [place] [address] Performed By: #### 2 4323-8 ####[facility] LABCLIA [id number] [place] [address] Ferritin SerPl-ncon 2022 Ferritin [Mass/Vol] 120.0 ng/mL Normal 14.7-205.1 [facility] Comment on above: Order Comment: Speci men Type: BLOOD SPECIMENOrdering Facility: [facility] Address: [address] [place] [address] Performed By: #### 5 0190-8, 2275-4 ####[facility] LABCLIA [id number] [place] [id number] [place] Iron and Iron binding capaci ty panelon 10-23-2023 Iron [Mass/Vol] 67 ug/dL Normal 41-186 [facility] Comment on above: Order Comment: Speci men Type: BLOOD SPECIMENOrdering Facility: [facility] Address: [address] [place] [address] Performed By: #### 5 0190-8, 2275-4 ####[facility] LABCLIA [id number] [place] [address] [place] Iron binding capacity [Mass/Vol] 371 ug/dL Normal 232-386 [facility] Comment on above: Order Comment: Speci men Type: BLOOD SPECIMENOrdering Facility: [facility] Address: [address] [place] [address] Performed By: #### 5 0190-8, 2276-4 ####[facility] LABCLIA [id number] [place] [address] [place] Iron/TIBC [Molar ratio] 18.1 % Normal 15.0-57.0 [facility] Comment on above: Order Comment: Speci men Type: BLOOD SPECIMENOrdering Facility: [facility] Address: [address] [place] [address] Performed By: #### 5 0190-8, 2275-4 ####[facility] LABCLIA [id number] [place] [address] [place] A1C with Estimated Average G [facility] 09-05-2023 Glucose [Mass/Vol] 192 mg/dL Normal [facility] Comment on above: Result Comment: PERF ORMED BY: [place] [address] PATHOLOGIST DYE LAB TECHNICIAN THERESA MULLER M.D. Performed By: #### L IPID, CMP, A1C WTH eA, CBC #### [facility] [address] HbA1c (Bld) [Mass fraction] 8.3 % High 4.3-5.6 [facility] Comment on above: Result Comment: Incr eased risk for diabetes: 5.7 - 6.4 diabetes: >6.4 glycemic control for adults with diabetes: <7.0 Performed By: #### L IPID, CMP, A1C WTH eA, CBC #### [facility] [address] Alanine aminotransferase [En zymatic activity/volume] in Serum or PlasmaOrdered By: Vinay Escalerating on 09-05-2023 ALT [Catalytic activity/Vol] 24 U/L 7-52 [facility] Albumin [Mass/volume] in Ser um or Plasma by Bromocresol green (BCG) dye binding methoOrdered By: Vinay Bunting on 09-05-2023 Albumin BCG dye [Mass/Vol] 4.2 g/dL 3.5-5.7 [facility] Alkaline phosphatase [Enzyma tic activity/volume] in Serum or PlasmaOrdered By: Vinay Bunting on 09-05-2023 ALP [Catalytic activity/Vol] 105 U/L 34-104 [facility] Aspartate aminotransferase [ Enzymatic activity/volume] in Serum or PlasmaOrdered By: Vinay Bunting on 09-05-2023 AST [Catalytic activity/Vol] 24 U/L 13-39 [facility] Basophils Auto (Bld) [#/Vol] Ordered By: Vinay Bunting on 09-05-2023 Basophils (Bld) [#/Vol] 0.0 10*3/uL 0.0-0.2 [facility] Basophils/100 WBC Auto (Bld) Ordered By: Vinay Bunting on 09-05-2023 Basophils/100 WBC (Bld) 0.5 % . [facility] Bilirubin.total [Mass/volume ] in Serum or PlasmaOrdered By: Vinay Bunting on 09-05-2023 Bilirubin [Mass/Vol] 0.5 mg/dL 0.3-1.0 [facility] Calcium [Mass/volume] in Ser um or PlasmaOrdered By: Vinay Bunting on 09-05-2023 Calcium [Mass/Vol] 9.1 mg/dL 8.6-10.3 [facility] Carbon dioxide, total [Moles /volume] in Serum or PlasmaOrdered By: Vinay Bunting on 09-05-2023 CO2 [Moles/Vol] 29.2 mmol/L 21.0-31.0 [facility] Chloride [Moles/volume] in S hilda or PlasmaOrdered By: Vinay Bunting on 09-05-2023 Chloride [Moles/Vol] 103 mmol/L 98-107 [facility] Cholesterol [Mass/volume] in Serum or PlasmaOrdered By: Vinay Matta on 09-05-2023 Cholesterol [Mass/Vol] 116 mg/dL 140-200 [facility] Comment on above: Chol less than 200 m g/dl low riskChol 201-239 mg/dl borderline riskChol 240 mg/dl and greater high risk Cholesterol in LDL Calc [Mas s/Vol]Ordered By: Vinay Bunhomer on 09-05-2023 Cholesterol in LDL [Mass/Vol] 55 mg/dL 0-100 [facility] Comment on above: LDL ATP III CLASSIFI CATIONLDL less than 100 mg/dL OptimalLDL 100-129 mg/dL Near or above optimalLDL 130-159 mg/dL Borderline highLDL 160-189 mg/dL HighLDL greater than 189 mg/dL Very high Cholesterol in VLDL Calc [Ma ss/Vol]Ordered By: Vinay Matta on 09-05-2023 Cholesterol in VLDL [Mass/Vol] 18 mg/dL [facility] Complete Blood Count Auto Di ffon 09-05-2023 Basophils (Bld) [#/Vol] 0.0 10*3/uL Normal 0.0-0.2 [facility] Comment on above: Result Comment: PERF ORMED BY: [place] [address] PATHOLOGIST DYE LAB TECHNICIAN THERESA MULLER M.D. Performed By: #### L IPID, BMP, CBC #### [facility] [address] [place] [address] [place] Basophils/100 WBC (Bld) 0.5 % Normal . [facility] Comment on above: Performed By: #### L IPID, BMP, CBC #### [facility] [address] [place] [address] [place] Eosinophils (Bld) [#/Vol] 0.1 10*3/uL Normal 0.0-0.45 [facility] Comment on above: Performed By: #### L IPID, BMP, CBC #### [facility] [address] [place] [address] [place] Eosinophils/100 WBC (Bld) 2.7 % Normal . [facility] Comment on above: Performed By: #### L IPID, BMP, CBC #### [facility] [address] Erythrocyte distribution width (RBC) [Ratio] 17.2 % High 11.9-15.3 [facility] Comment on above: Performed By: #### L IPID, BMP, CBC #### [address] Hematocrit (Bld) [Volume fraction] 31.6 % Low 34.0-46.4 [facility] Comment on above: Performed By: #### L IPID, BMP, CBC #### [address] Hemoglobin (Bld) [Mass/Vol] 11.0 g/dL Low 11.8-15.4 [facility] Comment on above: Performed By: #### L IPID, BMP, CBC #### [address] Lymphocytes (Bld) [#/Vol] 1.5 10*3/uL Normal 1.00-4.8 [facility] Comment on above: Performed By: #### L IPID, BMP, CBC #### [address] Lymphocytes/100 WBC (Bld) 28.2 % Normal . [facility] Comment on above: Performed By: #### L IPID, BMP, CBC #### [address] MCH (RBC) [Entitic mass] 29.1 pg Normal 24.7-34.3 [facility] Comment on above: Performed By: #### L IPID, BMP, CBC #### [address] MCV (RBC) [Entitic vol] 83.3 fL Normal 80-100 [facility] Comment on above: Performed By: #### L IPID, BMP, CBC #### [address] Mean Corpuscular HGB Conc 34.9 g/dL Normal 32.0-35.0 [facility] Comment on above: Performed By: #### L IPID, BMP, CBC #### [facility] [address] [place] [address] [place] Monocytes (Bld) [#/Vol] 0.3 10*3/uL Normal 0.0-0.8 [facility] Comment on above: Performed By: #### L IPID, BMP, CBC #### [facility] [address] [place] [address] [place] Monocytes/100 WBC (Bld) 5.0 % Normal . [facility] Comment on above: Performed By: #### L IPID, BMP, CBC #### [facility] [address] Neutrophils (Bld) [#/Vol] 3.4 10*3/uL Normal 1.8-7.7 [facility] Comment on above: Performed By: #### L IPID, BMP, CBC #### [address] Neutrophils/100 WBC (Bld) 63.6 % Normal . [facility] Comment on above: Performed By: #### L IPID, BMP, CBC #### [facility] [address] [place] [address] NRBC% 0.0 /100{WBC} Normal 0-0.5 [facility] Comment on above: Performed By: #### L IPID, BMP, CBC #### [facility] [address] [place] [address] [place] Platelet mean volume (Bld) [Entitic vol] 7.3 fL Normal 6.3-10.7 [facility] Comment on above: Performed By: #### L IPID, BMP, CBC #### [facility] [address] [place] [address] [place] Platelets (Bld) [#/Vol] 150 10*3/uL Normal 150-450 [facility] Comment on above: Performed By: #### L IPID, BMP, CBC #### [facility] [address] [place] [address] [place] RBC (Bld) [#/Vol] 3.79 10*6/uL Normal 3.60-5.00 [facility] Comment on above: Performed By: #### L IPID, BMP, CBC #### [facility] [address] WBC (Bld) [#/Vol] 5.3 10*3/uL Normal 3.8-11.6 [facility] Comment on above: Performed By: #### L IPID, BMP, CBC #### [facility] [address] Comprehensive Metabolic Pane palmer 09-05-2023 Albumin [Mass/Vol] 4.2 g/dL Normal 3.5-5.7 [facility] Comment on above: Order Comment: FASTI NG Performed By: #### L IPID, BMP, CBC #### [address] Albumin/Globulin [Mass ratio] 1.9 {ratio} Normal [facility] Comment on above: Order Comment: FASTI NG Performed By: #### L IPID, BMP, CBC #### [address] ALP [Catalytic activity/Vol] 105 U/L High 34-104 [facility] Comment on above: Order Comment: FASTI NG Performed By: #### L IPID, BMP, CBC #### [facility] [address] [place] [address] ALT [Catalytic activity/Vol] 24 U/L Normal 7-52 [facility] Comment on above: Order Comment: FASTI NG Performed By: #### L IPID, BMP, CBC #### [facility] [address] Anion gap [Moles/Vol] 13.8 mmol/L Normal 6.0-15.0 [facility] Comment on above: Order Comment: FASTI NG Performed By: #### L IPID, BMP, CBC #### [facility] [address] [place] [address] AST [Catalytic activity/Vol] 24 U/L Normal 13-39 [facility] Comment on above: Order Comment: FASTI NG Performed By: #### L IPID, BMP, CBC #### [facility] [address] Bilirubin [Mass/Vol] 0.5 mg/dL Normal 0.3-1.0 [facility] Comment on above: Order Comment: FASTI NG Performed By: #### L IPID, BMP, CBC #### [facility] [address] Calcium [Mass/Vol] 9.1 mg/dL Normal 8.6-10.3 [facility] Comment on above: Order Comment: FASTI NG Performed By: #### L IPID, BMP, CBC #### [facility] [address] Chloride [Moles/Vol] 103 mmol/L Normal 98-107 [facility] Comment on above: Order Comment: FASTI NG Performed By: #### L IPID, BMP, CBC #### [facility] [address] CO2 [Moles/Vol] 29.2 mmol/L Normal 21.0-31.0 [facility] Comment on above: Order Comment: FASTI NG Performed By: #### L IPID, BMP, CBC #### [facility] [address] Creatinine [Mass/Vol] 1.67 mg/dL High 0.60-1.20 [facility] Comment on above: Order Comment: FASTI NG Performed By: #### L IPID, BMP, CBC #### [facility] [address] [place] [address] [place] GFR/1.73 sq M.predicted MDRD (S/P/Bld) [Vol rate/Area] 31.949 mL/min/{1.73_m2} Normal [facility] Comment on above: Order Comment: FASTI NG Performed By: #### L IPID, BMP, CBC #### [facility] [address] [place] [address] [place] Globulin (S) [Mass/Vol] 2.2 g/dL Normal [facility] Comment on above: Order Comment: FASTI NG Performed By: #### L IPID, BMP, CBC #### [facility] [address] Glucose [Mass/Vol] 172 mg/dL High 70-100 [facility] Comment on above: Order Comment: FASTI NG Result Comment: [facility] Glucose Reference Range is dependent on time and content of last meal. Glucose of more than 200 mg/dL in a nonstressed, ambulatory subject supports the diagnosis of Diabetes Mellitus. ADA recommended reference range Performed By: #### L IPID, BMP, CBC #### [facility] [address] Potassium [Moles/Vol] 4.0 mmol/L Normal 3.5-5.1 [facility] Comment on above: Order Comment: FASTI NG Performed By: #### L IPID, BMP, CBC #### [facility] [address] [place] [address] Protein [Mass/Vol] 6.4 g/dL Normal 6.4-8.9 [facility] Comment on above: Order Comment: FASTI NG Performed By: #### L IPID, BMP, CBC #### [address] Sodium [Moles/Vol] 142 mmol/L Normal 136-145 [facility] Comment on above: Order Comment: FASTI NG Performed By: #### L IPID, BMP, CBC #### [facility] [address] [place] [address] Urea nitrogen [Mass/Vol] 38 mg/dL High 7-25 [facility] Comment on above: Order Comment: FASTI NG Performed By: #### L IPID, BMP, CBC #### [facility] [address] [place] [address] Creatinine [Mass/volume] in Serum or PlasmaOrdered By: Vinay Matta on 09-05-2023 Creatinine [Mass/Vol] 1.67 mg/dL 0.60-1.20 [facility] Eosinophils Auto (Bld) [#/Vo l]Ordered By: Vinay Bunhomer on 09-05-2023 Eosinophils (Bld) [#/Vol] 0.1 10*3/uL 0.0-0.45 [facility] Eosinophils/100 WBC Auto (Bl d)Ordered By: Vinay Bunting on 09-05-2023 Eosinophils/100 WBC (Bld) 2.7 % . [facility] Erythrocyte distribution wid th Auto (RBC) [Ratio]Ordered By: Vinay Bunting on 09-05-2023 Erythrocyte distribution width (RBC) [Ratio] 17.2 % 11.9-15.3 [facility] Globulin Calc (S) [Mass/Vol] Ordered By: Vinay Matta on 09-05-2023 Globulin (S) [Mass/Vol] 2.2 g/dL [facility] Glucose [Mass/volume] in Ser um or PlasmaOrdered By: Vinay Matta on 09-05-2023 Glucose [Mass/Vol] 172 mg/dL 70-100 [facility] Comment on above: ADA recommended refe rence rangeRandom Glucose Reference Range is dependent on time and content of last meal. Glucose of more than 200 mg/dL in a nonstressed, ambulatory subject supports the diagnosis of Diabetes Mellitus. Glucose mean value [Mass/vol ume] in Blood Estimated from glycated hemoglobinOrdered By: Vinay Matta on 09-05-2023 Average glucose Estimated from glycated hemoglobin (Bld) [Mass/Vol] 192 mg/dL [facility] Hematocrit Auto (Bld) [Volum e fraction]Ordered By: Vinay Matta on 09-05-2023 Hematocrit (Bld) [Volume fraction] 31.6 % 34.0-46.4 [facility] Hemoglobin A1c percentageOrd ered By: Vinay Matta on 09-05-2023 HbA1c (Bld) [Mass fraction] 8.3 % 4.3-5.6 [facility] Comment on above: Increased risk for d iabetes: 5.7 - 6.4diabetes: >6.4glycemic control for adults with diabetes: <7.0 Hemoglobin [Mass/volume] in BloodOrdered By: Vinay Matta on 09-05-2023 Hemoglobin (Bld) [Mass/Vol] 11.0 g/dL 11.8-15.4 [facility] Leukocytes [#/volume] correc remberto for nucleated erythrocytes in Blood by Automated counOrdered By: Vinay Matta on 09-05-2023 WBC corrected for nucl RBC Auto (Bld) [#/Vol] 5.3 10*3/uL 3.8-11.6 [facility] Lipid Panelon 09-05-2023 Cholesterol [Mass/Vol] 116 mg/dL Low 140-200 [facility] Comment on above: Order Comment: FASTI NG Result Comment: Chol less than 200 mg/dl low risk Chol 201-239 mg/dl borderline risk Chol 240 mg/dl and greater high risk Performed By: #### L IPID, CMP, A1C WT eA, CBC #### [facility] [address] [place] [address] [place] Cholesterol in HDL [Mass/Vol] 42 mg/dL Normal 23-92 [facility] Comment on above: Order Comment: FASTI NG Result Comment: HDL CHOL ATP-III CLASSIFICATION Cardiovascular Risk HDL > or equal to 60 mg/dL LOW HDL < 40 mg/dL HIGH Performed By: #### L IPID, CMP, A1C WTH eA, CBC #### [facility] [address] [place] [id number] [facility] Cholesterol.total/Chol esterol in HDL [Mass ratio] 2.8 {ratio} Normal <5.0 [facility] Comment on above: Order Comment: FASTI NG Result Comment: PERF ORMED BY: [place] [address] PATHOLOGIST [employer] TECHNICIAN THERESA MULLER M.D. Performed By: #### L IPID, CMP, A1C WT eA, CBC #### [facility] [address] [place] [id number] [place] LDL Cholesterol,Calculated 55 mg/dL Normal 0-100 [facility] Comment on above: Order Comment: FASTI NG Result Comment: LDL ATP III CLASSIFICATION LDL less than 100 mg/dL Optimal LDL 100-129 mg/dL Near or above optimal LDL 130-159 mg/dL Borderline high LDL 160-189 mg/dL High LDL greater than 189 mg/dL Very high Performed By: #### L IPID, CMP, A1C WTH eA, CBC #### [facility] [address] Triglyceride w/Reflex 93 mg/dL Normal 0-149 [facility] Comment on above: Order Comment: FASTI NG Result Comment: TRIG ATP III CLASSIFICATION TRIG less than 150 mg/dL Normal TRIG 150-199 mg/dL Borderline high TRIG 200-500 mg/dL High TRIG greater than 500 mg/dL Very high Standard traceable to the Center for Disease Conrtrol and Prevention (CDC) test method. Performed By: #### L IPID, CMP, A1C WTH eA, CBC #### [facility] [address] VLDL CHOLESTEROL 18 mg/dL Normal [facility] Comment on above: Order Comment: FASTI NG Performed By: #### L IPID, CMP, A1C WTH eA, CBC #### [facility] [address] Lymphocytes Auto (Bld) [#/Vo l]Ordered By: Vinay Bunting on 09-05-2023 Lymphocytes (Bld) [#/Vol] 1.5 10*3/uL 1.00-4.8 [facility] Lymphocytes/100 WBC Auto (Bl d)Ordered By: Vinay Bunting on 09-05-2023 Lymphocytes/100 WBC (Bld) 28.2 % . [facility] MCH Auto (RBC) [Entitic mass ]Ordered By: Vinay Bunting on 09-05-2023 MCH (RBC) [Entitic mass] 29.1 pg 24.7-34.3 [facility] MCHC Auto (RBC) [Mass/Vol]Or dered By: Vinay Bunting on 09-05-2023 MCHC (RBC) [Mass/Vol] 34.9 g/dL 32.0-35.0 [facility] MCV Auto (RBC) [Entitic vol] Ordered By: Vinay Bunting on 09-05-2023 MCV (RBC) [Entitic vol] 83.3 fL 80-100 [facility] Monocytes Auto (Bld) [#/Vol] Ordered By: Vinay Bunting on 09-05-2023 Monocytes (Bld) [#/Vol] 0.3 10*3/uL 0.0-0.8 [facility] Monocytes/100 WBC Auto (Bld) Ordered By: Vinay Bunting on 09-05-2023 Monocytes/100 WBC (Bld) 5.0 % . [facility] Neutrophils Auto (Bld) [#/Vo l]Ordered By: Vinay Bunting on 09-05-2023 Neutrophils (Bld) [#/Vol] 3.4 10*3/uL 1.8-7.7 [facility] Neutrophils/100 WBC Auto (Bl d)Ordered By: Vinay Bunting on 09-05-2023 Neutrophils/100 WBC (Bld) 63.6 % . [facility] No Panel InformationOrdered By: Vinay Bunting on 09-05-2023 Estimated GFR (CKD-EPI) 31.949 mL/Min [facility] Creatinine Clearance (Chem N/A [facility] Nucleated erythrocytes [Pres ence] in Blood by Automated countOrdered By: Vinay Bunting on 09-05-2023 Nucleated RBC Auto Ql (Bld) 0.0 /100{WBC} 0-0.5 [facility] Platelet mean volume Auto (B ld) [Entitic vol]Ordered By: Vinay Bunting on 09-05-2023 Platelet mean volume (Bld) [Entitic vol] 7.3 fL 6.3-10.7 [facility] Platelets Auto (Bld) [#/Vol] Ordered By: Vinay Bunting on 09-05-2023 Platelets (Bld) [#/Vol] 150 10*3/uL 150-450 [facility] Potassium [Moles/volume] in Serum or PlasmaOrdered By: Vinay Bunting on 09-05-2023 Potassium [Moles/Vol] 4.0 mmol/L 3.5-5.1 [facility] Protein [Mass/volume] in Ser um or PlasmaOrdered By: Vinay Bunting on 09-05-2023 Protein [Mass/Vol] 6.4 g/dL 6.4-8.9 [facility] RBC Auto (Bld) [#/Vol]Ordere d By: Vinay Bunting on 09-05-2023 RBC (Bld) [#/Vol] 3.79 10*6/uL 3.60-5.00 [facility] Serum or plasma albumin/glob ulin mass ratioOrdered By: Vinay Bunting on 09-05-2023 Albumin/Globulin [Mass ratio] 1.9 {ratio} [facility] Serum or plasma anion gap de terminationOrdered By: Vinay Bunting on 09-05-2023 Anion gap [Moles/Vol] 13.8 mmol/L 6.0-15.0 [facility] Serum or plasma high density lipoprotein (HDL) cholesterol measurementOrdered By: Vinay Bunting on 09-05-2023 Cholesterol in HDL [Mass/Vol] 42 mg/dL 23-92 [facility] Comment on above: HDL CHOL ATP-III CLA SSIFICATION Cardiovascular RiskHDL > or equal to 60 mg/dL LOWHDL < 40 mg/dL HIGH Serum or plasma total choles terol/high density lipoprotein (HDL) cholesterol mass ratOrdered By: Vinay Bunting on 09-05-2023 Cholesterol.total/Chol esterol in HDL [Mass ratio] 2.8 {ratio} <5.0 [facility] Sodium [Moles/volume] in Ser um or PlasmaOrdered By: Vinay Bunting on 09-05-2023 Sodium [Moles/Vol] 142 mmol/L 136-145 [facility] Triglyceride [Mass/volume] i n Serum or PlasmaOrdered By: Vinay Bunting on 09-05-2023 Triglyceride [Mass/Vol] 93 mg/dL 0-149 [facility] Comment on above: TRIG ATP III CLASSIF ICATIONTRIG less than 150 mg/dL NormalTRIG 150-199 mg/dL Borderline highTRIG 200-500 mg/dL High TRIG greater than 500 mg/dL Very highStandard traceable to the Center for Disease Conrtrol and Prevention (CDC) test method. Urate [Mass/volume] in Serum or PlasmaOrdered By: Vinay Bunting on 09-05-2023 Urate [Mass/Vol] 6.0 mg/dL 2.3-6.6 [facility] Urea nitrogen [Mass/volume] in Serum or PlasmaOrdered By: Vinay Matta on 09-05-2023 Urea nitrogen [Mass/Vol] 38 mg/dL 7 [facility] Uric Acidon 09-05-2023 Urate [Mass/Vol] 6.0 mg/dL Normal 2.3-6.6 [facility] Comment on above: Order Comment: FASTI NG Performed By: #### L IPID, CMP, A1C WTH eA, CBC #### [facility] [address] WBC Auto (Bld) [#/Vol]Ordere d By: Vinay Bunhomer on 09-05-2023 WBC (Bld) [#/Vol] 5.3 10*3/uL 3.8-11.6 [facility] Lab Reportson 08-02-2023 Lab Reports [id number]:127 Normal [facility] Consultation Noteon 07-28-20 Consultation Note [id number]:127 Normal [facility] CNPNon 07-27-2023 CNPN Telephone (HEMASA) ANH TEJEDA ([id number]) 1950 F Date Time Provider Department 07/27/23 SAMANTHA MCMAHAN HEMASA During your visit today, we recorded the [...] Status:Closed by SAMANTHA MCMAHAN on 07/27/23 Normal [facility] CBC W Auto Differential pane l (Bld)on 07-24-2023 Basophils (Bld) [#/Vol] 10*3/uL Normal <0.11 [facility] Comment on above: Order Comment: Speci men Type: BLOOD SPECIMENOrdering Facility: [facility] Address: [address] [place] [address] Performed By: #### 5 7021-8 ####[facility] LABCLIA [id number] [place] [address] Basophils/100 WBC (Bld) 0.3 % Normal [facility] Comment on above: Order Comment: Speci men Type: BLOOD SPECIMENOrdering Facility: [facility] Address: [address] [place] [address] Performed By: #### 5 7021-8 ####[facility] LABCLIA [id number] [place] [address] Differential cell count method Nom (Bld) Auto Normal [facility] Comment on above: Order Comment: Speci men Type: BLOOD SPECIMENOrdering Facility: [facility] Address: [address] [place] [address] Performed By: #### 5 7021-8 ####[facility] LABCLIA [id number] [place] [address] Eosinophils (Bld) [#/Vol] 0.20 10*3/uL Normal <0.46 [facility] Comment on above: Order Comment: Speci men Type: BLOOD SPECIMENOrdering Facility: [facility] Address: [address] [place] [address] Performed By: #### 5 7021-8 ####[facility] LABCLIA [id number] [place] [address] Eosinophils/100 WBC (Bld) 3.0 % Normal [facility] Comment on above: Order Comment: Speci men Type: BLOOD SPECIMENOrdering Facility: [facility] Address: [address] [address] Performed By: #### 5 7021-8 ####[facility] LABCLIA [id number] [place] [address] Erythrocyte distribution width (RBC) [Ratio] 16.0 % High 11.5-15.0 [facility] Comment on above: Order Comment: Speci men Type: BLOOD SPECIMENOrdering Facility: [facility] Address: [address] [place] [address] Performed By: #### 5 7021-8 ####[facility] LABIA [id number] [place] [address] Hematocrit (Bld) [Volume fraction] 35.2 % Low 36.0-46.0 [facility] Comment on above: Order Comment: Speci men Type: BLOOD SPECIMENOrdering Facility: [facility] Address: [address] [place] [address] Performed By: #### 5 7021-8 ####[facility] LABIA [id number] [place] [address] Hemoglobin (Bld) [Mass/Vol] 11.6 g/dL Normal 11.5-15.5 [facility] Comment on above: Order Comment: Speci men Type: BLOOD SPECIMENOrdering Facility: [facility] Address: [address] [place] [address] Performed By: #### 5 7021-8 ####[facility] LABCLIA [id number] [place] [address] Immature granulocytes (Bld) [#/Vol] 10*3/uL Normal <0.10 [facility] Comment on above: Order Comment: Speci men Type: BLOOD SPECIMENOrdering Facility: [facility] Address: [address] [place] [address] Performed By: #### 5 7021-8 ####[facility] LABCLIA [id number] [place] [address] Immature granulocytes/100 WBC (Bld) 0.3 % Normal [facility] Comment on above: Order Comment: Speci men Type: BLOOD SPECIMENOrdering Facility: [facility] Address: [address] [place] [address] Performed By: #### 5 7021-8 ####[facility] LABCLIA [id number] [place] [address] Lymphocytes (Bld) [#/Vol] 1.55 10*3/uL Normal 1.00-4.00 [facility] Comment on above: Order Comment: Speci men Type: BLOOD SPECIMENOrdering Facility: [facility] Address: [address] [place] [address] Performed By: #### 5 7021-8 ####[facility] LABCLIA [id number] [place] [address] Lymphocytes/100 WBC (Bld) 23.3 % Normal [facility] Comment on above: Order Comment: Speci men Type: BLOOD SPECIMENOrdering Facility: [facility] Address: [address] [place] [address] Performed By: #### 5 7021-8 ####[facility] LABCLIA [id number] [place] [address] MCH (RBC) [Entitic mass] 28.0 pg Normal 26.0-34.0 [facility] Comment on above: Order Comment: Speci men Type: BLOOD SPECIMENOrdering Facility: [facility] Address: [address] [place] [address] Performed By: #### 5 7021-8 ####[facility] LABCLIA [id number] [place] [address] MCHC (RBC) [Mass/Vol] 33.0 g/dL Normal 30.5-36.0 [facility] Comment on above: Order Comment: Speci men Type: BLOOD SPECIMENOrdering Facility: [facility] Address: [address] [place] [address] Performed By: #### 5 7021-8 ####[facility] LABCLIA [id number] [place] [address] MCV (RBC) [Entitic vol] 84.8 fL Normal 80.0-100.0 [facility] Comment on above: Order Comment: Speci men Type: BLOOD SPECIMENOrdering Facility: [facility] Address: [address] [place] [address] Performed By: #### 5 7021-8 ####[facility] LABCLIA [id number] [place] [address] Monocytes (Bld) [#/Vol] 0.39 10*3/uL Normal <0.87 [facility] Comment on above: Order Comment: Speci men Type: BLOOD SPECIMENOrdering Facility: [facility] Address: [address] [place] [address] Performed By: #### 5 7021-8 ####[facility] LABCLIA [id number] [place] [address] Monocytes/100 WBC (Bld) 5.9 % Normal [facility] Comment on above: Order Comment: Speci men Type: BLOOD SPECIMENOrdering Facility: [facility] Address: [address] [place] [address] Performed By: #### 5 7021-8 ####[facility] LABCLIA [id number] [place] [address] Neutrophils (Bld) [#/Vol] 4.46 10*3/uL Normal 1.45-7.50 [facility] Comment on above: Order Comment: Speci men Type: BLOOD SPECIMENOrdering Facility: [facility] Address: [address] [place] [address] Performed By: #### 5 7021-8 ####[facility] LABCLIA [id number] [place] [address] Neutrophils/100 WBC (Bld) 67.2 % Normal [facility] Comment on above: Order Comment: Speci men Type: BLOOD SPECIMENOrdering Facility: [facility] Address: [address] [address] Performed By: #### 5 7021-8 ####[facility] LABCLIA [id number] [place] [address] Nucleated RBC (Bld) [#/Vol] 10*3/uL Normal <0.01 [facility] Comment on above: Order Comment: Speci men Type: BLOOD SPECIMENOrdering Facility: [facility] Address: [address] [address] Performed By: #### 5 7021-8 ####[facility] LABCLIA [id number] [place] [address] Nucleated RBC/100 WBC (Bld) [Ratio] 0.0 /100 WBC Normal [facility] Comment on above: Order Comment: Speci men Type: BLOOD SPECIMENOrdering Facility: [facility] Address: [address] [address] Performed By: #### 5 7021-8 ####[facility] LABIA [id number] [place] [address] Platelet mean volume (Bld) [Entitic vol] 9.6 fL Normal 9.0-12.7 [facility] Comment on above: Order Comment: Speci men Type: BLOOD SPECIMENOrdering Facility: [facility] Address: [address] Performed By: #### 5 7021-8 ####[facility] LABIA [id number] [place] [address] Platelets (Bld) [#/Vol] 162 10*3/uL Normal 150-400 [facility] Comment on above: Order Comment: Speci men Type: BLOOD SPECIMENOrdering Facility: [facility] Address: [address] [address] Performed By: #### 5 7021-8 ####[facility] LABCLIA [id number] [place] [address] RBC (Bld) [#/Vol] 4.15 10*6/uL Normal 3.90-5.20 [facility] Comment on above: Order Comment: Speci men Type: BLOOD SPECIMENOrdering Facility: [facility] Address: [address] [place] [address] Performed By: #### 5 7021-8 ####[facility] LABIA [id number] [place] [address] WBC (Bld) [#/Vol] 6.64 10*3/uL Normal 3.70-11.00 [facility] Comment on above: Order Comment: Speci men Type: BLOOD SPECIMENOrdering Facility: [facility] Address: [address] [place] [address] Performed By: #### 5 7021-8 ####[facility] LABIA [id number] [place] [address] CNOVSPon 07-24-2023 CNOVSP Visit (SP) Office ([facility]) ANH TEJEDA ([id number]) 1950 F Date Time Provider Department 07/24/23 2:00 PM DAKSHA BRIDGES During your visit today, we recorded the following information about you: Temperature Pulse Respiration Blood pressure 97.7 degrees 79/minute 16/minute 132/54 Weight Height 92.6 kg 1.58 m Daksha Bridges PA-C 07/24/2023 2:26 PM Signed PATIENT NAME: Anh Tejeda CLINIC NO.: [id number] ATTENDING PHYSICIAN: Henry Walker MD DATE OF SERVICE: May 01, [...] CO2 (mmol (more content not included)... Normal [facility] CNPNon 07-24-2023 CNPN Telephone (HEMASA) ANH TEJEDA ([id number]) 1950 F Date Time Provider Department 07/24/23 DAKSHA BRIDGES HEMASA During your visit today, we recorded the [...] closed for the weekend. Left message on [employer] with message. Labs faxed as requested. Herminia [...] Status:Closed by HERMINIA SNIDER on 07/24/23 Normal [facility] Comprehensive metabolic 2000 panelon 07-24-2023 Albumin [Mass/Vol] 4.6 g/dL Normal 3.9-4.[address] [facility] Comment on above: Order Comment: Speci men Type: BLOOD SPECIMENOrdering Facility: [facility] Address: [address] [place] [address] Performed By: #### 2 4323-8 ####[facility] [facility] LABIA [id number] [place] [address] ALP [Catalytic activity/Vol] 128 U/L High 34-123 [facility] Comment on above: Order Comment: Speci men Type: BLOOD SPECIMENOrdering Facility: [facility] Address: [address] [address] Performed By: #### 2 4323-8 ####[facility] LABCLIA [id number] [place] [address] ALT [Catalytic activity/Vol] 20 U/L Normal 7-38 [facility] Comment on above: Order Comment: Speci men Type: BLOOD SPECIMENOrdering Facility: [facility] Address: [address] [address] Performed By: #### 2 4323-8 ####[facility] LABCLIA [id number] [place] [address] Anion gap [Moles/Vol] 15 mmol/L Normal 9-18 [facility] Comment on above: Order Comment: Speci men Type: BLOOD SPECIMENOrdering Facility: [facility] Address: [address] [address] Performed By: #### 2 4323-8 ####[facility] LABCLIA [id number] [place] [address] AST [Catalytic activity/Vol] 24 U/L Normal 13-35 [facility] Comment on above: Order Comment: Speci men Type: BLOOD SPECIMENOrdering Facility: [facility] Address: [address] [address] Performed By: #### 2 4323-8 ####[facility] LABCLIA [id number] [place] [address] Bilirubin [Mass/Vol] 0.5 mg/dL Normal 0.2-1.3 [facility] Comment on above: Order Comment: Speci men Type: BLOOD SPECIMENOrdering Facility: [facility] Address: [address] [address] Performed By: #### 2 4323-8 ####[facility] LABCLIA [id number] [place] [address] Calcium [Mass/Vol] 9.9 mg/dL Normal 8.5-10.[address] [facility] Comment on above: Order Comment: Speci men Type: BLOOD SPECIMENOrdering Facility: [facility] Address: [address] [address] Performed By: #### 2 4323-8 ####[facility] LABCLIA [id number] [place] [address] Chloride [Moles/Vol] 105 mmol/L Normal 97-105 [facility] Comment on above: Order Comment: Speci men Type: BLOOD SPECIMENOrdering Facility: [facility] Address: [address] [address] Performed By: #### 2 4323-8 ####[facility] LABCLIA [id number] [place] [address] CO2 [Moles/Vol] 25 mmol/L Normal 22-30 [facility] Comment on above: Order Comment: Speci men Type: BLOOD SPECIMENOrdering Facility: [facility] Address: [address] [place] [address] Performed By: #### 2 4323-8 ####[facility] LABCLIA [id number] [place] [address] Creatinine [Mass/Vol] 1.71 mg/dL High 0.58-0.96 [facility] Comment on above: Order Comment: Speci men Type: BLOOD SPECIMENOrdering Facility: [facility] Address: [address] [place] [address] Performed By: #### 2 4323-8 ####[facility] LABCLIA [id number] [place] [address] Creatinine and Glomerular filtration rate.predicted panel (S/P/Bld) 31 mL/min/1.73m??? Low >=60 [facility] Comment on above: Order Comment: Speci men Type: BLOOD SPECIMENOrdering Facility: [facility] Address: [address] [place] [address] Result Comment: Maru mated Glomerular Filtration Rate [...] accurately reflect actual GFR. Performed By: #### 2 4323-8 ####[facility] LABCLIA [id number] [place] [address] Glucose [Mass/Vol] 159 mg/dL High 74-[address] [facility] Comment on above: Order Comment: Speckerri tarango Type: BLOOD SPECIMENOrdering Facility: [facility] Address: [place] [address] Result Comment: The [place] Diabetes Association (ADA) provides guidance for cutoff [...] Standards of Medical Care in Diabetes 2016, [place] [employer]. Diabetes Care. 2016.39(Suppl 1). Performed By: #### 2 4323-8 ####[facility] LABCLIA [id number] [place] [address] Potassium [Moles/Vol] 4.6 mmol/L Normal 3.7-5.1 [facility] Comment on above: Order Comment: Patricia tarango Type: BLOOD SPECIMENOrdering Facility: [facility] Address: [place] [address] Performed By: #### 2 4323-8 ####[facility] LABCLIA [id number] [place] [address] Protein [Mass/Vol] 7.0 g/dL Normal 6.3-8.[address] [facility] Comment on above: Order Comment: Speci men Type: BLOOD SPECIMENOrdering Facility: [facility] Address: [address] [place] [address] Performed By: #### 2 4323-8 ####[facility] LABCLIA [id number] [place] [address] Sodium [Moles/Vol] 145 mmol/L High 136-[address] [facility] Comment on above: Order Comment: Speci men Type: BLOOD SPECIMENOrdering Facility: [facility] Address: [address] [place] [address] Performed By: #### 2 4323-8 ####[facility] LABCLIA [id number] [place] [address] Urea nitrogen [Mass/Vol] 42 mg/dL High 7-21 [facility] Comment on above: Order Comment: Speci men Type: BLOOD SPECIMENOrdering Facility: [facility] Address: [address] [place] [address] Performed By: #### 2 4323-8 ####[facility] LABCLIA [id number] [place] [address] Ferritin SerPl-mCncon 2022 Ferritin [Mass/Vol] 111.0 ng/mL Normal 14.7-205.1 [facility] Comment on above: Order Comment: Speci men Type: BLOOD SPECIMENOrdering Facility: [facility] Address: [address] [place] [address] Performed By: #### 5 0190-8, 2276-4 ####[facility] LABCLIA [id number] [place] [address] [place] Iron and Iron binding capaci ty panelon 07-24-2023 Iron [Mass/Vol] 75 ug/dL Normal 41-186 [facility] Comment on above: Order Comment: Speci men Type: BLOOD SPECIMENOrdering Facility: [facility] Address: [address] [address] Performed By: #### 5 0190-8, 6-4 ####[facility] LABCLIA [id number] [place] [address] [place] Iron binding capacity [Mass/Vol] 409 ug/dL High 232-386 [facility] Comment on above: Order Comment: Speci men Type: BLOOD SPECIMENOrdering Facility: [facility] Address: [address] [place] [address] Performed By: #### 5 0190-8, 4 ####[facility] LABIA [id number] [address] [place] Iron/TIBC [Molar ratio] 18.3 % Normal 15.0-57.0 [facility] Comment on above: Order Comment: Speci men Type: BLOOD SPECIMENOrdering Facility: [facility] Address: [address] [place] [address] Performed By: #### 5 0190-8, 4 ####[facility] LABIA [id number] [place] [address] [place] Lab Reportson 05-23-2023 Lab Reports [id number]#1.00CD:127 Normal [facility] Lab Reports [id number]#1.00CD:127 Normal [facility] A1C with Estimated Average [facility] 05-20-2023 Glucose [Mass/Vol] 163 mg/dL Normal [facility] Comment on above: Result Comment: PERF ORMED BY: [facility] [address] [place] [address] PATHOLOGIST DYE LAB TECHNICIAN THERESA MULLER M.D. Performed By: #### L IPID, CMP, A1C WTH eA, CBC #### [facility] [address] HbA1c (Bld) [Mass fraction] 7.3 % High 4.3-5.6 [facility] Comment on above: Result Comment: Incr eased risk for diabetes: 5.7 - 6.4 diabetes: >6.4 glycemic control for adults with diabetes: <7.0 Performed By: #### L IPID, CMP, A1C WTH eA, CBC #### [place] [address] [place] Anti-Centromere B Antibodies on 05-20-2023 Anti-Centromere B Antibodies <0.2 Normal 0.0-0.9 [facility] Comment on above: Result Comment: Perf ormed at: - [facility] [address] [id number] Caving Guide: Darren Ashby PhD, Phone: [phone] Performed By: #### L IPID, BMP, CBC #### [place] [address] [place] Anti-RNPon 05-20-2023 Anti-POLICE AND FIRE DISPATCHER <0.2 Normal 0.0-0.9 [facility] Comment on above: Performed By: #### L IPID, BMP, CBC #### [place] [address] [place] Anti-Balbuena Antibodieson Anti-Balbuena Antibodies <0.2 Normal 0.0-0.9 [facility] Comment on above: Performed By: #### L IPID, BMP, CBC #### [place] [address] [place] Anti-dsDNA(DBL)Abon 05-20-20 23 Anti-dsDNA(DBL)Ab 1 Normal 0-9 [facility] Comment on above: Result Comment: Nega tive <5 Equivocal 5 - 9 Positive >9 Performed By: #### L IPID, BMP, CBC #### [place] [address] [place] C-Reactive Proteinon 023 C-Reactive Protein 0.8 mg/dL High 0.0-0.5 [facility] Comment on above: Performed By: #### L IPID, BMP, CBC #### [facility] [address] Chromatin Antibodyon 023 Chromatin Antibody <0.2 Normal 0.0-0.9 [facility] Comment on above: Result Comment: PERF ORMED BY: [place] [address] PATHOLOGIST DYE LAB TECHNICIAN THERESA MULLER M.D. Performed By: #### L IPID, BMP, CBC #### [address] Complete Blood Count Auto Di ffon 05-20-2023 Basophils (Bld) [#/Vol] 0.0 10*3/uL Normal 0.0-0.2 [facility] Comment on above: Result Comment: PERF ORMED BY: [place] [address] PATHOLOGIST DYE LAB TECHNICIAN THERESA MULLER M.D. Performed By: #### L IPID, CMP, A1C WTH eA, CBC #### [place] [address] [place] Basophils/100 WBC (Bld) 0.7 % Normal . [facility] Comment on above: Performed By: #### L IPID, CMP, A1C WTH eA, CBC #### [address] Eosinophils (Bld) [#/Vol] 0.1 10*3/uL Normal 0.0-0.45 [facility] Comment on above: Performed By: #### L IPID, CMP, A1C WTH eA, CBC #### [place] [address] [place] Eosinophils/100 WBC (Bld) 2.4 % Normal . [facility] Comment on above: Performed By: #### L IPID, CMP, A1C WTH eA, CBC #### [address] Erythrocyte distribution width (RBC) [Ratio] 16.7 % High 11.9-15.3 [facility] Comment on above: Performed By: #### L IPID, CMP, A1C WTH eA, CBC #### [address] Hematocrit (Bld) [Volume fraction] 31.8 % Low 34.0-46.4 [facility] Comment on above: Performed By: #### L IPID, CMP, A1C WTH eA, CBC #### [address] Hemoglobin (Bld) [Mass/Vol] 10.9 g/dL Low 11.8-15.4 [facility] Comment on above: Performed By: #### L IPID, CMP, A1C WTH eA, CBC #### [address] Lymphocytes (Bld) [#/Vol] 1.2 10*3/uL Normal 1.00-4.8 [facility] Comment on above: Performed By: #### L IPID, CMP, A1C WTH eA, CBC #### [address] Lymphocytes/100 WBC (Bld) 23.2 % Normal . [facility] Comment on above: Performed By: #### L IPID, CMP, A1C WTH eA, CBC #### [address] MCH (RBC) [Entitic mass] 28.4 pg Normal 24.7-34.3 [facility] Comment on above: Performed By: #### L IPID, CMP, A1C WTH eA, CBC #### [place] [address] [place] MCV (RBC) [Entitic vol] 83.2 fL Normal 80-100 [facility] Comment on above: Performed By: #### L IPID, CMP, A1C WTH eA, CBC #### [address] Mean Corpuscular HGB Conc 34.1 g/dL Normal 32.0-35.0 [facility] Comment on above: Performed By: #### L IPID, CMP, A1C WTH eA, CBC #### [facility] [address] [place] [address] [place] Monocytes (Bld) [#/Vol] 0.2 10*3/uL Normal 0.0-0.8 [facility] Comment on above: Performed By: #### L IPID, CMP, A1C WTH eA, CBC #### [facility] [address] [place] [address] [place] Monocytes/100 WBC (Bld) 3.8 % Normal . [facility] Comment on above: Performed By: #### L IPID, CMP, A1C WTH eA, CBC #### [facility] [address] [place] [address] [place] Neutrophils (Bld) [#/Vol] 3.5 10*3/uL Normal 1.8-7.7 [facility] Comment on above: Performed By: #### L IPID, CMP, A1C WTH eA, CBC #### [facility] [address] [place] [address] Neutrophils/100 WBC (Bld) 69.9 % Normal . [facility] Comment on above: Performed By: #### L IPID, CMP, A1C WTH eA, CBC #### [facility] [address] [place] [address] [place] NRBC% 0.1 /100{WBC} Normal 0-0.5 [facility] Comment on above: Performed By: #### L IPID, CMP, A1C WTH eA, CBC #### [facility] [address] [place] [address] [place] Platelet mean volume (Bld) [Entitic vol] 7.0 fL Normal 6.3-10.7 [facility] Comment on above: Performed By: #### L IPID, CMP, A1C WTH eA, CBC #### [facility] [address] [place] [address] [place] Platelets (Bld) [#/Vol] 144 10*3/uL Low 150-450 [facility] Comment on above: Performed By: #### L IPID, CMP, A1C WTH eA, CBC #### [facility] [address] [place] [address] RBC (Bld) [#/Vol] 3.82 10*6/uL Normal 3.60-5.00 [facility] Comment on above: Performed By: #### L IPID, CMP, A1C WTH eA, CBC #### [facility] [address] [place] [address] WBC (Bld) [#/Vol] 5.1 10*3/uL Normal 3.8-11.6 [facility] Comment on above: Performed By: #### L IPID, CMP, A1C WTH eA, CBC #### [facility] [address] [place] [address] Comprehensive Metabolic Pane palmer 05-20-2023 Albumin [Mass/Vol] 4.1 g/dL Normal 3.5-5.7 [facility] Comment on above: Performed By: #### L IPID, CMP, A1C WTH eA, CBC #### [facility] [address] [place] [address] Albumin/Globulin [Mass ratio] 1.9 {ratio} Normal [facility] Comment on above: Performed By: #### L IPID, CMP, A1C WTH eA, CBC #### [address] ALP [Catalytic activity/Vol] 98 U/L Normal 34-104 [facility] Comment on above: Performed By: #### L IPID, CMP, A1C WTH eA, CBC #### [facility] [address] [place] [address] ALT [Catalytic activity/Vol] 17 U/L Normal 7-52 [facility] Comment on above: Performed By: #### L IPID, CMP, A1C WTH eA, CBC #### [facility] [address] [place] [address] Anion gap [Moles/Vol] 12.7 mmol/L Normal 6.0-15.0 [facility] Comment on above: Performed By: #### L IPID, CMP, A1C WTH eA, CBC #### [facility] [address] [place] [address] AST [Catalytic activity/Vol] 23 U/L Normal 13-39 [facility] Comment on above: Performed By: #### L IPID, CMP, A1C WTH eA, CBC #### [facility] [address] [place] [address] Bilirubin [Mass/Vol] 0.5 mg/dL Normal 0.3-1.0 [facility] Comment on above: Performed By: #### L IPID, CMP, A1C WTH eA, CBC #### [facility] [address] [place] [address] Calcium [Mass/Vol] 8.7 mg/dL Normal 8.6-10.3 [facility] Comment on above: Performed By: #### L IPID, CMP, A1C WTH eA, CBC #### [address] Chloride [Moles/Vol] 103 mmol/L Normal 98-107 [facility] Comment on above: Performed By: #### L IPID, CMP, A1C WTH eA, CBC #### [facility] [address] [place] [address] [place] CO2 [Moles/Vol] 30.3 mmol/L Normal 21.0-31.0 [facility] Comment on above: Performed By: #### L IPID, CMP, A1C WTH eA, CBC #### [facility] [address] [place] [address] [place] Creatinine [Mass/Vol] 1.21 mg/dL High 0.60-1.20 [facility] Comment on above: Performed By: #### L IPID, CMP, A1C WTH eA, CBC #### [facility] [address] [place] [address] [place] GFR/1.73 sq M.predicted MDRD (S/P/Bld) [Vol rate/Area] 47.029 mL/min/{1.73_m2} Normal [facility] Comment on above: Performed By: #### L IPID, CMP, A1C WTH eA, CBC #### [facility] [address] Globulin (S) [Mass/Vol] 2.2 g/dL Normal [facility] Comment on above: Performed By: #### L IPIDRISHABH, A1C WTH eA, CBC #### [facility] [address] Glucose [Mass/Vol] 152 mg/dL High 70-100 [facility] Comment on above: Result Comment: [facility] Glucose Reference Range is dependent on time and content of last meal. Glucose of more than 200 mg/dL in a nonstressed, ambulatory subject supports the diagnosis of Diabetes Mellitus. ADA recommended reference range Performed By: #### L RISHABH SMITH, A1C WTH eA, CBC #### [facility] [address] Potassium [Moles/Vol] 4.0 mmol/L Normal 3.5-5.1 [facility] Comment on above: Performed By: #### L RISHABH SMITH, A1C WTH eA, CBC #### [facility] [address] Protein [Mass/Vol] 6.3 g/dL Low 6.4-8.9 [facility] Comment on above: Performed By: #### L IPRISHABH GOMEZ, A1C WTH eA, CBC #### [facility] [address] [place] [address] [place] Sodium [Moles/Vol] 142 mmol/L Normal 136-145 [facility] Comment on above: Performed By: #### L RISHABH SMITH, A1C WTH eA, CBC #### [facility] [address] [place] [address] [place] Urea nitrogen [Mass/Vol] 25 mg/dL Normal 7-25 [facility] Comment on above: Performed By: #### L IPRISHABH GOMEZ, A1C WTH eA, CBC #### [facility] [address] [place] [address] [place] Erythrocyte Sedimentation Ra jam 05-20-2023 ESR (Bld) [Velocity] 12 mm/h Normal 0-29 [facility] Comment on above: Result Comment: PERF ORMED BY: [place] [address] PATHOLOGIST DYE LAB TECHNICIAN THERESA MULLER M.D. Performed By: #### S CL70AB, SPE, CHROMATIN, JO1, METH, CENTROME, SSB, ANTIR, BALBUENA, ADNA, SSA #### [facility] , #### CRP, [id number], ESR, TSH3 #### [facility] [address] [place] [address] RAJAN-1 Antibodyon 05-20-2023 RAJAN-1 Antibody <0.2 Normal 0.0-0.9 [facility] Comment on above: Performed By: #### L IPID, BMP, CBC #### [address] Lipid Panelon 05-20-2023 Cholesterol [Mass/Vol] 116 mg/dL Low 140-200 [facility] Comment on above: Result Comment: Chol less than 200 mg/dl low risk Chol 201-239 mg/dl borderline risk Chol 240 mg/dl and greater high risk Performed By: #### L IPID, CMP, A1C WTH eA, CBC #### [facility] [address] [place] [address] Cholesterol in HDL [Mass/Vol] 38 mg/dL Normal 23-92 [facility] Comment on above: Result Comment: HDL CHOL ATP-III CLASSIFICATION Cardiovascular Risk HDL > or equal to 60 mg/dL LOW HDL < 40 mg/dL HIGH Performed By: #### L IPID, CMP, A1C WTH eA, CBC #### [facility] [address] [place] [address] Cholesterol.total/Chol esterol in HDL [Mass ratio] 3.1 {ratio} Normal <5.0 [facility] Comment on above: Result Comment: PERF ORMED BY: [place] [address] PATHOLOGIST DYE LAB TECHNICIAN THERESA MULLER M.D. Performed By: #### L IPID, CMP, A1C WTH eA, CBC #### [facility] [address] LDL Cholesterol,Calculated 56 mg/dL Normal 0-100 [facility] Comment on above: Result Comment: LDL ATP III CLASSIFICATION LDL less than 100 mg/dL Optimal LDL 100-129 mg/dL Near or above optimal LDL 130-159 mg/dL Borderline high LDL 160-189 mg/dL High LDL greater than 189 mg/dL Very high Performed By: #### L IPID, CMP, A1C WTH eA, CBC #### [facility] [address] Triglyceride w/Reflex 109 mg/dL Normal 0-149 [facility] Comment on above: Result Comment: TRIG ATP III CLASSIFICATION TRIG less than 150 mg/dL Normal TRIG 150-199 mg/dL Borderline high TRIG 200-500 mg/dL High TRIG greater than 500 mg/dL Very high Standard traceable to the Center for Disease Conrtrol and Prevention (CDC) test method. Performed By: #### L IPID, CMP, A1C WTH eA, CBC #### [facility] [address] VLDL CHOLESTEROL 21 mg/dL Normal [facility] Comment on above: Performed By: #### L IPID, CMP, A1C WTH eA, CBC #### [facility] [address] Methylmalonic Acidon 023 Methylmalonic Acid 300 Normal 0-378 [facility] Comment on above: Result Comment: This test was developed and its performance characteristics determined by [facility]. It has not been cleared or approved by the Food and Drug Administration. Performed at: - [address] [id number] Caving Guide: Keith Quijano MD, Phone: [phone] Performed By: #### L LUIS BMP, CBC #### [facility] [address] [place] [address] [place] Protein Electrophoresis, Ser umon 05-20-2023 Albumin [Mass/Vol] 3.5 g/dL Normal 2.9-4.4 [facility] Comment on above: Performed By: #### L IPID, BMP, CBC #### [facility] [address] Albumin/Globulin [Mass ratio] 1.3 {ratio} Normal 0.7-1.7 [facility] Comment on above: Performed By: #### L IPID, BMP, CBC #### [facility] [address] Hxqmj-9-Kkpklzam 0.2 g/dL Normal 0.0-0.4 [facility] Comment on above: Performed By: #### L IPID, BMP, CBC #### [facility] [address] [place] [address] Gkvyy-8-Dvsnxrvv 0.8 g/dL Normal 0.4-1.0 [facility] Comment on above: Performed By: #### L IPID, BMP, CBC #### [address] Beta Globulin 0.9 g/dL Normal 0.7-1.3 [facility] Comment on above: Performed By: #### L IPID, BMP, CBC #### [facility] [address] [place] [address] Gamma Globulin 0.6 g/dL Normal 0.4-1.8 [facility] Comment on above: Performed By: #### L IPID, BMP, CBC #### [facility] [address] [place] [address] [place] Globulin (S) [Mass/Vol] 2.6 g/dL Normal 2.2-3.9 [facility] Comment on above: Performed By: #### L IPID, BMP, CBC #### [facility] [address] [place] [address] [place] M-Bijan Not Observed Normal Not Observed [facility] Comment on above: Performed By: #### L IPID, BMP, CBC #### [facility] [address] [place] [address] [place] Protein [Mass/Vol] 6.1 g/dL Normal 6.0-8.5 [facility] Comment on above: Performed By: #### L IPID, BMP, CBC #### [address] SPE-Note Normal . [facility] Comment on above: Result Comment: Prot ein electrophoresis scan will follow via computer, mail, or powder room attendant delivery. Performed at: [facility] [address] [id number] Caving Guide: Darren Ashby PhD, Phone: [phone] Performed By: #### L IPID, BMP, CBC #### [address] SS-A/Ro Sjogrens Antibodyon 05-20-2023 SS-A/Ro Sjogrens Antibody <0.2 Normal 0.0-0.9 [facility] Comment on above: Performed By: #### L IPID, BMP, CBC #### [address] SS-B/La Sjogrens Antibodyon 05-20-2023 SS-B/La Sjogrens Antibody <0.2 Normal 0.0-0.9 [facility] Comment on above: Performed By: #### L IPID, BMP, CBC #### [address] Scleroderma 70 Antibodieson 05-20-2023 Scleroderma 70 Antibodies <0.2 Normal 0.0-0.9 [facility] Comment on above: Performed By: #### L IPID, BMP, CBC #### [address] Thyroid Stimulating Hormoneo n 05-20-2023 TSH Qn 2.11 m[IU]/L Normal 0.45-5.33 [facility] Comment on above: Result Comment: PERF ORMED BY: [place] [address] PATHOLOGIST DYE LAB TECHNICIAN THERESA MULLER M.D. Performed By: #### L IPID, BMP, CBC #### [address] Vit. B12/Folate Profileon Cobalamin (Vitamin B12) [Mass/Vol] 487 pg/mL Normal 180-914 [facility] Comment on above: Performed By: #### L IPID, BMP, CBC #### [facility] [address] [id number] [facility] Folate 20.0 ng/mL Normal >5.9 [facility] Comment on above: Result Comment: Jessica te reference range: >5.9 ng/ml The WHO technical consultation on folate and vitamin b12 deficiencies has determined that folate concentrations less than 4 ng/ml are considered deficient. Performed By: #### L IPID, BMP, CBC #### [facility] [address] [id number] [facility] CNPNon 05-04-2023 CNPN Telephone (HEMTSA) ANH TEJEDA ([id number]) 1950 F Date Time Provider Department 05/04/23 [...] Status:Closed by KARLIE CAR on 05/04/23 Normal [facility] Consultation Noteon 05-04-20 Consultation Note [id number]#[id number]:127 Normal [facility] Postoperative Documentson Postoperative Documents [id number]:127 Normal [facility] CBC W Auto Differential pane l (Bld)on 05-01-2023 Basophils (Bld) [#/Vol] 10*3/uL Normal <0.11 [facility] Comment on above: Order Comment: Speci men Type: BLOOD SPECIMENOrdering Facility: [facility] Address: [address] [place] [address] Performed By: #### 5 7021-8 ####[facility] LABCLIA [id number] [place] [address] Basophils/100 WBC (Bld) 0.1 % Normal [facility] Comment on above: Order Comment: Speci men Type: BLOOD SPECIMENOrdering Facility: [facility] Address: [address] [place] [address] Performed By: #### 5 7021-8 ####[facility] LABCLIA [id number] [place] [address] Differential cell count method Nom (Bld) Auto Normal [facility] Comment on above: Order Comment: Speci men Type: BLOOD SPECIMENOrdering Facility: [facility] Address: [address] [place] [address] Performed By: #### 5 7021-8 ####[facility] LABCLIA [id number] [place] [address] Eosinophils (Bld) [#/Vol] 0.11 10*3/uL Normal <0.46 [facility] Comment on above: Order Comment: Speci men Type: BLOOD SPECIMENOrdering Facility: [facility] Address: [address] [place] [address] Performed By: #### 5 7021-8 ####[facility] LABCLIA [id number] [place] [address] Eosinophils/100 WBC (Bld) 1.5 % Normal [facility] Comment on above: Order Comment: Speci men Type: BLOOD SPECIMENOrdering Facility: [facility] Address: [address] [place] [address] Performed By: #### 5 7021-8 ####[facility] LABIA [id number] [place] [address] Erythrocyte distribution width (RBC) [Ratio] 15.7 % High 11.5-15.0 [facility] Comment on above: Order Comment: Speci men Type: BLOOD SPECIMENOrdering Facility: [facility] Address: [address] [place] [address] Performed By: #### 5 7021-8 ####[facility] LABIA [id number] [place] [address] Hematocrit (Bld) [Volume fraction] 35.7 % Low 36.0-46.0 [facility] Comment on above: Order Comment: Speci men Type: BLOOD SPECIMENOrdering Facility: [facility] Address: [address] [place] [address] Performed By: #### 5 7021-8 ####[facility] LABIA [id number] [place] [address] Hemoglobin (Bld) [Mass/Vol] 11.7 g/dL Normal 11.5-15.5 [facility] Comment on above: Order Comment: Speci men Type: BLOOD SPECIMENOrdering Facility: [facility] Address: [address] [place] [address] Performed By: #### 5 7021-8 ####[facility] LABIA [id number] [place] [address] Immature granulocytes (Bld) [#/Vol] 10*3/uL Normal <0.10 [facility] Comment on above: Order Comment: Speci men Type: BLOOD SPECIMENOrdering Facility: [facility] Address: [address] [place] [address] Performed By: #### 5 7021-8 ####[facility] LABCLIA [id number] [place] [address] Immature granulocytes/100 WBC (Bld) 0.3 % Normal [facility] Comment on above: Order Comment: Speci men Type: BLOOD SPECIMENOrdering Facility: [facility] Address: [address] [place] [address] Performed By: #### 5 7021-8 ####[facility] LABCLIA [id number] [place] [address] Lymphocytes (Bld) [#/Vol] 1.64 10*3/uL Normal 1.00-4.00 [facility] Comment on above: Order Comment: Speci men Type: BLOOD SPECIMENOrdering Facility: [facility] Address: [address] [place] [address] Performed By: #### 5 7021-8 ####[facility] LABCLIA [id number] [place] [address] Lymphocytes/100 WBC (Bld) 22.3 % Normal [facility] Comment on above: Order Comment: Speci men Type: BLOOD SPECIMENOrdering Facility: [facility] Address: [address] [place] [address] Performed By: #### 5 7021-8 ####[facility] LABCLIA [id number] [place] [address] MCH (RBC) [Entitic mass] 28.5 pg Normal 26.0-34.0 [facility] Comment on above: Order Comment: Speci men Type: BLOOD SPECIMENOrdering Facility: [facility] Address: [address] [place] [address] Performed By: #### 5 7021-8 ####[facility] LABCLIA [id number] [place] [address] MCHC (RBC) [Mass/Vol] 32.8 g/dL Normal 30.5-36.0 [facility] Comment on above: Order Comment: Speci men Type: BLOOD SPECIMENOrdering Facility: [facility] Address: [address] [address] Performed By: #### 5 7021-8 ####[facility] LABCLIA [id number] [place] [address] MCV (RBC) [Entitic vol] 86.9 fL Normal 80.0-100.0 [facility] Comment on above: Order Comment: Speci men Type: BLOOD SPECIMENOrdering Facility: [facility] Address: [address] [place] [address] Performed By: #### 5 7021-8 ####[facility] LABCLIA [id number] [place] [address] Monocytes (Bld) [#/Vol] 0.44 10*3/uL Normal <0.87 [facility] Comment on above: Order Comment: Speci men Type: BLOOD SPECIMENOrdering Facility: [facility] Address: [address] [place] [address] Performed By: #### 5 7021-8 ####[facility] LABCLIA [id number] [place] [address] Monocytes/100 WBC (Bld) 6.0 % Normal [facility] Comment on above: Order Comment: Speci men Type: BLOOD SPECIMENOrdering Facility: [facility] Address: [address] [place] [address] Performed By: #### 5 7021-8 ####[facility] LABCLIA [id number] [place] [address] Neutrophils (Bld) [#/Vol] 5.12 10*3/uL Normal 1.45-7.50 [facility] Comment on above: Order Comment: Speci men Type: BLOOD SPECIMENOrdering Facility: [facility] Address: [address] [place] [address] Performed By: #### 5 7021-8 ####[facility] LABCLIA [id number] [place] [address] Neutrophils/100 WBC (Bld) 69.8 % Normal [facility] Comment on above: Order Comment: Speci men Type: BLOOD SPECIMENOrdering Facility: [facility] Address: [address] [address] Performed By: #### 5 7021-8 ####[facility] LABCLIA [id number] [place] [address] Nucleated RBC (Bld) [#/Vol] 10*3/uL Normal <0.01 [facility] Comment on above: Order Comment: Speci men Type: BLOOD SPECIMENOrdering Facility: [facility] Address: [address] [address] Performed By: #### 5 7021-8 ####[facility] LABCLIA [id number] [place] [address] Nucleated RBC/100 WBC (Bld) [Ratio] 0.0 /100 WBC Normal [facility] Comment on above: Order Comment: Speci men Type: BLOOD SPECIMENOrdering Facility: [facility] Address: [address] Performed By: #### 5 7021-8 ####[facility] LABCLIA [id number] [place] [address] Platelet mean volume (Bld) [Entitic vol] 9.2 fL Normal 9.0-12.7 [facility] Comment on above: Order Comment: Speci men Type: BLOOD SPECIMENOrdering Facility: [facility] Address: [address] Performed By: #### 5 7021-8 ####[facility] LABCLIA [id number] [place] [address] Platelets (Bld) [#/Vol] 182 10*3/uL Normal 150-400 [facility] Comment on above: Order Comment: Speci men Type: BLOOD SPECIMENOrdering Facility: [facility] Address: [address] Performed By: #### 5 7021-8 ####[facility] LABCLIA [id number] [place] [address] RBC (Bld) [#/Vol] 4.11 10*6/uL Normal 3.90-5.20 [facility] Comment on above: Order Comment: Speci men Type: BLOOD SPECIMENOrdering Facility: [facility] Address: [address] [place], [place] [address] Performed By: #### 5 7021-8 ####[facility] LABIA [id number] [place] [address] WBC (Bld) [#/Vol] 7.34 10*3/uL Normal 3.70-11.00 [facility] Comment on above: Order Comment: Speci men Type: BLOOD SPECIMENOrdering Facility: [facility] Address: [address] [place] [address] Performed By: #### 5 7021-8 ####[facility] LABIA [id number] [place] [address] CNOVSPon 05-01-2023 CNOVSP Visit (SP) Office ([facility]) ANH TEJEDA ([id number]) 1950 F Date Time Provider Department 05/01/23 2:00 PM DAKSHA BRIDGES During your visit today, we recorded the following information about you: Temperature Pulse Respiration Blood pressure 97.6 degrees 82/minute 18/minute 131/49 Weight Height 93.6 kg 1.58 m Daksha Bridges PA-C 05/01/2023 2:21 PM Signed PATIENT NAME: Anh Tejeda CLINIC NO.: [id number] ATTENDING PHYSICIAN: Henry Walker MD DATE OF SERVICE: May 01, [...] last visit she did have [place] [facility] [place] for syncope and UTI. [...] a colonoscopy a few weeks ago at [facility]. I do not have any of these [...] pleasant an (more content not included)... Normal [facility] metabolic 2000 panelon 05-01-2023 Albumin [Mass/Vol] 4.6 g/dL Normal 3.9-4.[address] [facility] Comment on above: Order Comment: Speci men Type: BLOOD SPECIMENOrdering Facility: [facility] Address: [address] [place] [address] Performed By: #### 2 4323-8 ####[facility] LABCLIA [id number] [place] [address] ALP [Catalytic activity/Vol] 114 U/L Normal 34-123 [facility] Comment on above: Order Comment: Speci men Type: BLOOD SPECIMENOrdering Facility: [facility] Address: [address] [address] Performed By: #### 2 4323-8 ####[facility] LABCLIA [id number] [place] [address] ALT [Catalytic activity/Vol] 20 U/L Normal 7-38 [facility] Comment on above: Order Comment: Speci men Type: BLOOD SPECIMENOrdering Facility: [facility] Address: [address] [address] Performed By: #### 2 4323-8 ####[facility] LABCLIA [id number] [place] [address] Anion gap [Moles/Vol] 15 mmol/L Normal 9-18 [facility] Comment on above: Order Comment: Speci men Type: BLOOD SPECIMENOrdering Facility: [facility] Address: [address] [address] Performed By: #### 2 4323-8 ####[facility] LABCLIA [id number] [place] [address] AST [Catalytic activity/Vol] 25 U/L Normal 13-35 [facility] Comment on above: Order Comment: Speci men Type: BLOOD SPECIMENOrdering Facility: [facility] Address: [address] [address] Performed By: #### 2 4323-8 ####[facility] LABCLIA [id number] [place] [address] Bilirubin [Mass/Vol] 0.6 mg/dL Normal 0.2-1.3 [facility] Comment on above: Order Comment: Speci men Type: BLOOD SPECIMENOrdering Facility: [facility] Address: [address] [place] [address] Performed By: #### 2 4323-8 ####[facility] LABCLIA [id number] [place] [address] Calcium [Mass/Vol] 9.5 mg/dL Normal 8.5-10.[address] [facility] Comment on above: Order Comment: Speci men Type: BLOOD SPECIMENOrdering Facility: [facility] Address: [address] [place] [address] Performed By: #### 2 4323-8 ####[facility] LABCLIA [id number] [place] [address] Chloride [Moles/Vol] 96 mmol/L Low 97-105 [facility] Comment on above: Order Comment: Speci men Type: BLOOD SPECIMENOrdering Facility: [facility] Address: [address] [place] [address] Performed By: #### 2 4323-8 ####[facility] LABCLIA [id number] [place] [address] CO2 [Moles/Vol] 31 mmol/L High 22-30 [facility] Comment on above: Order Comment: Speci men Type: BLOOD SPECIMENOrdering Facility: [facility] Address: [address] [place] [address] Performed By: #### 2 4323-8 ####[facility] LABCLIA [id number] [place] [address] Creatinine [Mass/Vol] 1.53 mg/dL High 0.58-0.96 [facility] Comment on above: Order Comment: Speci men Type: BLOOD SPECIMENOrdering Facility: [facility] Address: [address] [place] [address] Performed By: #### 2 4323-8 ####[facility] LABCLIA [id number] [place] [address] ESTIMATED GLOMERULAR FILTRATION RATE 36 mL/min/1.73m??? Low >=60 [facility] Comment on above: Order Comment: Patricia sukhdeep Type: BLOOD SPECIMENOrdering Facility: [facility] Address: [address] [place] [address] Result Comment: Maru mated Glomerular Filtration Rate [...] accurately reflect actual GFR. Performed By: #### 2 4323-8 ####[facility] LABCLIA [id number] [place] [address] Glucose [Mass/Vol] 149 mg/dL High 74-[address] [facility] Comment on above: Order Comment: Patricia sukhdeep Type: BLOOD SPECIMENOrdering Facility: [facility] Address: [address] [place] [address] Result Comment: The [place] [employer] (ADA) provides guidance for cutoff [...] Standards of Medical Care in Diabetes 2016, [place] [employer]. Diabetes Care. 2016.39(Suppl 1). Performed By: #### 2 4323-8 ####[facility] LABCLIA [id number] [place] [address] Potassium [Moles/Vol] 4.3 mmol/L Normal 3.7-5.1 [facility] Comment on above: Order Comment: Speci men Type: BLOOD SPECIMENOrdering Facility: [facility] Address: [address] [place] [address] Performed By: #### 2 4323-8 ####[facility] LABCLIA [id number] [place] [address] Protein [Mass/Vol] 7.0 g/dL Normal 6.3-8.[address] [facility] Comment on above: Order Comment: Speci men Type: BLOOD SPECIMENOrdering Facility: [facility] Address: [address] [place] [address] Performed By: #### 2 4323-8 ####[facility] LABIA [id number] [place] [address] Sodium [Moles/Vol] 142 mmol/L Normal 136-[address] [facility] Comment on above: Order Comment: Speci men Type: BLOOD SPECIMENOrdering Facility: [facility] Address: [address] [place] [address] Performed By: #### 2 4323-8 ####[facility] LABCLIA [id number] [place] [address] Urea nitrogen [Mass/Vol] 42 mg/dL High 7-21 [facility] Comment on above: Order Comment: Speci men Type: BLOOD SPECIMENOrdering Facility: [facility] Address: [address] [place] [address] Performed By: #### 2 4323-8 ####[facility] LABIA [id number] [place] [address] Ferritin SerPl-ncon 2022 Ferritin [Mass/Vol] 97.3 ng/mL Normal 14.7-205.1 [facility] Comment on above: Order Comment: Speci men Type: BLOOD SPECIMENOrdering Facility: [facility] Address: [address] [address] Performed By: #### 5 0190-8, 2275-4 ####[facility] LABCLIA [id number] [place] [address] [place] Iron and Iron binding capaci ty panelon 05-01-2023 Iron [Mass/Vol] 68 ug/dL Normal 41-186 [facility] Comment on above: Order Comment: Speci men Type: BLOOD SPECIMENOrdering Facility: [facility] Address: [address] [address] Performed By: #### 5 0190-8, 2276-02 ####[facility] LABCLIA [id number] [address] [place] Iron binding capacity [Mass/Vol] 387 ug/dL High 232-386 [facility] Comment on above: Order Comment: Speci men Type: BLOOD SPECIMENOrdering Facility: [facility] Address: [address] [address] Performed By: #### 5 0190-8, 2276-02 ####[facility] LABCLIA [id number] [address] [place] Iron/TIBC [Molar ratio] 17.6 % Normal 15.0-57.0 [facility] Comment on above: Order Comment: Speci men Type: BLOOD SPECIMENOrdering Facility: [facility] Address: [address] Performed By: #### 5 0190-8, 2276-02 ####[facility] LABCLIA [id number] [place] [address] [place] cardiac event monitoron 0 04-24-2023 [place] cardiac event monitor [facility] [address] [place] [address] Cardiac Event Monitor Signed Patient: Anh Tejeda MR#: [id number] 036 : 1950 Acct:[id number] Age/Sex: 72 / F ADM Date: 03/13/23 Loc: Room: Type: [facility] Attending Dr: Queta Prieto Adult BUSINESS TRANSFORMATION MANAGER-BC Copies to: DENISE Lara MD, [facility] Ordering Provider: DENISE Lara Date of Service: [...] 04/25/23 1231 Dictated By: Karl Padilla MD, [facility] 04/24/23 1551 Signed By: 05/06/23 1445 [facility] Physician Orderon 04-23-2023 Physician Order [id number]#[id number]:127 [facility] Consent for Treatmenton Consent for Treatment [id number]#1.00CD:127 [facility] General Surgery Office/Clini c Noteon 04-16-2023 General [...] or their guardian verbally consented to allow IMScouting to record this visit. Review of Systems [...] patient or guardian consented to allow Iris Rivas Lisa to record this visit. FARIDEH naval architect specialist and provider reviewed before signing. FARIDEH: [...] mg T (more content not included)... Normal [facility] Comment on above: Result Comment: Elec [...] Type 2 diabetes mellitus without complication Normal [facility] Gastroenterology Office/Clin ic Noteon 04-15-2023 Gastroenterology Office/Clinic [...] Rob Gonzalez to record this visit. FARIDEH naval architect specialist and provider reviewed before signing. FARIDEH: Dolores Anderson. Follow-up No qualifying data available Problem List/Past Medical History Ongoing Anemia Anemia due to GI blood loss B12 deficiency Chronic GERD Diabetes Diverticulosis Elevated alkali (more content not included)... Normal [facility] Comment on above: Result Comment: Elec tronically Signed By: Frieda Barajas\.br\Date and Time Signed: 04/15/23 12:50 EDT\.br\Electronically Co-Signed By: Jason RUSSELL MD Other Comment: multi ple sent CBC AUTO DIFFon 03-27-2023 BASO # 0.0 103/ul Normal 0.0-0.1 [facility] Comment on above: Performed By: #### C BC #### [facility] [address] [address] [address] Anamika Varghese Basophils/100 WBC (Bld) 0.3 % Normal 0.2-2.0 [facility] Comment on above: Performed By: #### C BC #### [facility] [address] [address] [address] Anamika Varghese EO # 0.1 103/ul Normal 0.0-0.7 [facility] Comment on above: Performed By: #### C BC #### [facility] [address] [address] [address] Anamika Varghese Eosinophils/100 WBC (Bld) 1.7 % Normal 0.9-7.0 [facility] Comment on above: Performed By: #### C BC #### [facility] [address] [address] [address] Anamika Varghese Erythrocyte distribution width (RBC) [Ratio] 15.4 % Critically high 11.0-15.0 [facility] Comment on above: Performed By: #### C BC #### [facility] [address] [address] [address] Anamika Varghese Hematocrit (Bld) [Volume fraction] 32.2 % Critically low 36.0-48.0 [facility] Comment on above: Performed By: #### C BC #### [facility] [address] [address] [address] Anamika Varghese Hemoglobin (Bld) [Mass/Vol] 10.9 g/dL Critically low 12.0-16.0 [facility] Comment on above: Performed By: #### C BC #### [facility] [address] [place] [address] Dr. Anamika Varghese IG # 0.02 10e3/ul Normal 0.00-0.03 [facility] Comment on above: Performed By: #### C BC #### [facility] [address] [place] [address] Dr. Anamika Varghese IG % 0.3 % Normal 0.0-0.5 [facility] Comment on above: Performed By: #### C BC #### [facility] [address] [place] [address] Dr. Anamika Varghese LYMPH # 1.5 103/ul Normal 1.2-3.8 [facility] Comment on above: Performed By: #### C BC #### [facility] [address] [place] [address] Dr. Anamika Varghese Lymphocytes/100 WBC (Bld) 25.0 % Normal 20.5-60.0 [facility] Comment on above: Performed By: #### C BC #### [facility] [address] [place] [address] Dr. Anamika Varghese MANUAL DIFF REQ NO Normal [facility] Comment on above: Performed By: #### C BC #### [facility] [address] [place] [address] Dr. Anamika Varghese MCH (RBC) [Entitic mass] 29.0 pg Normal 26.7-34.0 [facility] Comment on above: Performed By: #### C BC #### [facility] [address] [place] [address] Dr. Anamika Varghese MCHC (RBC) [Mass/Vol] 33.9 g/dL Normal 29.9-35.2 [facility] Comment on above: Performed By: #### C BC #### [facility] [address] [place] [address] Dr. Anamika Varghese MCV (RBC) [Entitic vol] 85.6 fL Normal 81.0-99.0 [facility] Comment on above: Performed By: #### C BC #### [facility] [address] [place] [address] Dr. Anamika Varghese MONO # 0.3 103/ul Normal 0.3-0.8 [facility] Comment on above: Performed By: #### C BC #### [facility] [address] [place] [address] Dr. Anamika Varghese Monocytes/100 WBC (Bld) 4.5 % Normal 1.7-12.0 [facility] Comment on above: Performed By: #### C BC #### [facility] [address] [place] [address] Dr. Anamika Varghese NEUT # 4.1 103/ul Normal 1.4-6.5 [facility] Comment on above: Performed By: #### C BC #### [facility] [address] [place] [address] Dr. Anamika Varghese Neutrophils/100 WBC (Bld) 68.2 % Normal 43.0-75.0 [facility] Comment on above: Performed By: #### C BC #### [facility] [address] [place] [address] Dr. Anamika Varghese Platelet mean volume (Bld) [Entitic vol] 8.9 fL Critically low 9.5-13.5 [facility] Comment on above: Performed By: #### C BC #### [facility] [address] [place] [address] Dr. Anamika Varghese PLT 172 103/ul Normal 150-450 [facility] Comment on above: Performed By: #### C BC #### [facility] [address] [place] [address] Dr. Anaimka Varghese RBC 3.76 106/ul Critically low 4.20-5.40 [facility] Comment on above: Performed By: #### C BC #### [facility] [address] [place] [address] Dr. Anamika Varghese WBC 6.0 103/ul Normal 4.0-11.0 [facility] Comment on above: Performed By: #### C BC #### [facility] [address] [place] [address] Dr. Anamika Varghese PROF 14(COMP METB)on 023 Albumin [Mass/Vol] 3.5 g/dL Normal 3.4-5.0 [facility] Comment on above: Performed By: #### F ETIBC, FERR, B12FOL #### [facility] [address] [place] [address] Dr. Anamika Varghese Albumin/Globulin [Mass ratio] 1.0 {ratio} Normal [facility] Comment on above: Performed By: #### F ETIBC, FERR, B12FOL #### [facility] [address] [place] [address] Dr. Anamika Varghese ALP [Catalytic activity/Vol] 109 U/L Normal 46-116 [facility] Comment on above: Performed By: #### F ETIBC, FERR, B12FOL #### [facility] [address] [place] [address] Dr. Anamika Varghese ALT [Catalytic activity/Vol] 34 U/L Normal 14-59 [facility] Comment on above: Performed By: #### F ETIBC, FERR, B12FOL #### [facility] [address] [address] [address] Anamika Varghese Anion gap [Moles/Vol] 13.8 mmol/L Normal [facility] Comment on above: Performed By: #### F ETIBC, FERR, B12FOL #### [facility] [address] [place] [address] Dr. Anamika Varghese AST [Catalytic activity/Vol] 20 U/L Normal 15-37 [facility] Comment on above: Performed By: #### F ETIBC, FERR, B12FOL #### [facility] [address] [place] [address] Dr. Anamika Varghese Bilirubin [Mass/Vol] 0.4 mg/dL Normal 0.2-1.0 [facility] Comment on above: Performed By: #### F ETIBC, FERR, B12FOL #### [facility] [address] [place] [address] Dr. Anamika Varghese Calcium [Mass/Vol] 8.7 mg/dL Normal 8.5-10.1 [facility] Comment on above: Performed By: #### F ETIBC, FERR, B12FOL #### [facility] [address] [address] [address] Anamika Varghese Chloride [Moles/Vol] 107 mmol/L Normal 98-107 [facility] Comment on above: Performed By: #### F ETIBC, FERR, B12FOL #### [facility] [address] [place] [address] Dr. Anamika Varghese CO2 [Moles/Vol] 28.2 mmol/L Normal 21.0-32.0 [facility] Comment on above: Performed By: #### F ETIBC, FERR, B12FOL #### [facility] [address] [place] [address] Dr. Anamika Varghese Creatinine [Mass/Vol] 1.27 mg/dL Critically high 0.55-1.02 [facility] Comment on above: Performed By: #### F ETIBC, FERR, B12FOL #### [facility] [address] [place] [address] Dr. Anamika Varghese EGFR-AF BELIZEAN 50 mL/min/1.73m2 Critically low >=60 [facility] Comment on above: Performed By: #### F ETIBC, FERR, B12FOL #### [facility] [address] [place] [address] Dr. Anamika Varghese EGFR-NON AF BELIZEAN 41 mL/min/1.73m2 Critically low >=60 [facility] Comment on above: Performed By: #### F ETIBC, FERR, B12FOL #### [facility] [address] [place] [address] Dr. Anamika Varghese Globulin (S) [Mass/Vol] 3.6 g/dL Normal [facility] Comment on above: Performed By: #### F ETIBC, FERR, B12FOL #### [facility] [address] [place] [address] Dr. Anamika Varghese Glucose [Mass/Vol] 116 mg/dL Critically high 74-106 [facility] Comment on above: Performed By: #### F ETIBC, FERR, B12FOL #### [facility] [address] [address] [address] Anamika Varghese Potassium [Moles/Vol] 4.0 mmol/L Normal 3.5-5.1 [facility] Comment on above: Performed By: #### F ETIBC, FERR, B12FOL #### [facility] [address] [address] [address] Anamika Varghese Protein [Mass/Vol] 7.1 g/dL Normal 6.4-8.2 [facility] Comment on above: Performed By: #### F ETIBC, FERR, B12FOL #### [facility] [address] [place] [address] Dr. Anamika Vagrhese Sodium [Moles/Vol] 145 mmol/L Normal 136-145 [facility] Comment on above: Performed By: #### F ETIBC, FERR, B12FOL #### [facility] [address] [address] [address] Anamika Varghese Urea nitrogen [Mass/Vol] 24.0 mg/dL Critically high 7.0-18.0 [facility] Comment on above: Performed By: #### F ETIBC, FERR, B12FOL #### [facility] [address] [place] [address] Dr. Anamika Varghese Urea nitrogen/Creatinine [Mass ratio] 18.9 mg/mg Normal [facility] Comment on above: Performed By: #### F ETIBC, FERR, B12FOL #### [facility] [address] [address] [address] Anamika Varghese Basic Metabolic Panelon 02-15 Anion gap [Moles/Vol] Not performed Normal 6.0-15.0 [facility] Comment on above: Performed By: #### L IPID, CMP, A1C WTH eA, CBC #### [facility] [address] Calcium [Mass/Vol] 8.5 mg/dL Low 8.6-10.3 [facility] Comment on above: Performed By: #### L IPID, CMP, A1C WTH eA, CBC #### [facility] [address] [place] [address] [place] Chloride [Moles/Vol] 103 mmol/L Normal 98-107 [facility] Comment on above: Performed By: #### L IPID, CMP, A1C WTH eA, CBC #### [facility] [address] [place] [address] [place] CO2 [Moles/Vol] 29.6 mmol/L Normal 21.0-31.0 [facility] Comment on above: Performed By: #### L IPID, CMP, A1C WTH eA, CBC #### [facility] [address] [place] [address] [place] Creatinine [Mass/Vol] 1.35 mg/dL High 0.60-1.20 [facility] Comment on above: Performed By: #### L IPID, CMP, A1C WTH eA, CBC #### [facility] [address] [place] [address] [place] Creatinine Clr Calc Pharmacy 39.70 Normal [facility] Comment on above: Result Comment: PERF ORMED BY: [place] [address] PATHOLOGIST [employer] LAB TECHNICIAN THERESA MULLER M.D. Performed By: #### L IPID, CMP, A1C WTH eA, CBC #### [facility] [address] [place] [address] [place] GFR/1.73 sq M.predicted MDRD (S/P/Bld) [Vol rate/Area] 41.239 mL/min/{1.73_m2} Normal [facility] Comment on above: Performed By: #### L IPID, CMP, A1C WTH eA, CBC #### [facility] [address] [place] [address] [place] Glucose [Mass/Vol] 130 mg/dL High 70-100 [facility] Comment on above: Result Comment: [place] Glucose Reference Range is dependent on time and content of last meal. Glucose of more than 200 mg/dL in a nonstressed, ambulatory subject supports the diagnosis of Diabetes Mellitus. ADA recommended reference range Performed By: #### L IPID, CMP, A1C WTH eA, CBC #### [facility] [address] Potassium Normal 3.5-5.1 [facility] Comment on above: Result Comment: Spec imen hemolyzed, redraw requested Performed By: #### L IPID, CMP, A1C WTH eA, CBC #### [facility] [address] Sodium [Moles/Vol] 141 mmol/L Normal 136-145 [facility] Comment on above: Performed By: #### L IPID, CMP, A1C WTH eA, CBC #### [facility] [address] Urea nitrogen [Mass/Vol] 28 mg/dL High 7-25 [facility] Comment on above: Performed By: #### L IPID, CMP, A1C WTH eA, CBC #### [facility] [address] [place] [address] [place] Basophils Auto (Bld) [#/Vol] Ordered By: Kimberly Arteaga on 03-13-2023 Basophils (Bld) [#/Vol] 0.0 10*3/uL 0.0-0.2 [facility] Basophils/100 WBC Auto (Bld) Ordered By: Kimberly Arteaga on 03-13-2023 Basophils/100 WBC (Bld) 0.4 % . [facility] Calcium [Mass/volume] in Ser um or PlasmaOrdered By: Kimberly Arteaga on 03-13-2023 Calcium [Mass/Vol] 8.5 mg/dL 8.6-10.3 [facility] Carbon dioxide, total [Moles /volume] in Serum or PlasmaOrdered By: Kimberly Arteaga on 03-13-2023 CO2 [Moles/Vol] 29.6 mmol/L 21.0-31.0 [facility] Chloride [Moles/volume] in S hilda or PlasmaOrdered By: Kimberly Arteaga on 03-13-2023 Chloride [Moles/Vol] 103 mmol/L 98-107 [facility] Complete Blood Count Auto Di ffon 03-13-2023 Basophils (Bld) [#/Vol] 0.0 10*3/uL Normal 0.0-0.2 [facility] Comment on above: Result Comment: PERF ORMED BY: [place] [address] PATHOLOGIST [employer]YE LAB TECHNICIAN THERESA MULLER M.D. Performed By: #### L IPID, BMP, CBC #### [address] Basophils/100 WBC (Bld) 0.4 % Normal . [facility] Comment on above: Performed By: #### L IPID, BMP, CBC #### [address] Eosinophils (Bld) [#/Vol] 0.1 10*3/uL Normal 0.0-0.45 [facility] Comment on above: Performed By: #### L IPID, BMP, CBC #### [address] Eosinophils/100 WBC (Bld) 1.7 % Normal . [facility] Comment on above: Performed By: #### L IPID, BMP, CBC #### [facility] [address] [place] [address] Erythrocyte distribution width (RBC) [Ratio] 16.8 % High 11.9-15.3 [facility] Comment on above: Performed By: #### L IPID, BMP, CBC #### [facility] [address] [place] [address] Hematocrit (Bld) [Volume fraction] 32.5 % Low 34.0-46.4 [facility] Comment on above: Performed By: #### L IPID, BMP, CBC #### [facility] [address] [place] [address] Hemoglobin (Bld) [Mass/Vol] 10.9 g/dL Low 11.8-15.4 [facility] Comment on above: Performed By: #### L IPID, BMP, CBC #### [facility] [address] [place] [address] [place] Lymphocytes (Bld) [#/Vol] 1.4 10*3/uL Normal 1.00-4.8 [facility] Comment on above: Performed By: #### L IPID, BMP, CBC #### [address] Lymphocytes/100 WBC (Bld) 28.5 % Normal . [facility] Comment on above: Performed By: #### L IPID, BMP, CBC #### [facility] [address] [place] [address] MCH (RBC) [Entitic mass] 28.6 pg Normal 24.7-34.3 [facility] Comment on above: Performed By: #### L IPID, BMP, CBC #### [address] MCV (RBC) [Entitic vol] 85.3 fL Normal 80-100 [facility] Comment on above: Performed By: #### L IPID, BMP, CBC #### [address] Mean Corpuscular HGB Conc 33.5 g/dL Normal 32.0-35.0 [facility] Comment on above: Performed By: #### L IPID, BMP, CBC #### [address] Monocytes (Bld) [#/Vol] 0.3 10*3/uL Normal 0.0-0.8 [facility] Comment on above: Performed By: #### L IPID, BMP, CBC #### [address] Monocytes/100 WBC (Bld) 6.9 % Normal . [facility] Comment on above: Performed By: #### L IPID, BMP, CBC #### [address] Neutrophils (Bld) [#/Vol] 3.1 10*3/uL Normal 1.8-7.7 [facility] Comment on above: Performed By: #### L IPID, BMP, CBC #### [address] [place] [address] [place] Neutrophils/100 WBC (Bld) 62.5 % Normal . [facility] Comment on above: Performed By: #### L IPID, BMP, CBC #### [address] NRBC% 0.1 /100{WBC} Normal 0-0.5 [facility] Comment on above: Performed By: #### L IPID, BMP, CBC #### [address] Platelet mean volume (Bld) [Entitic vol] 7.2 fL Normal 6.3-10.7 [facility] Comment on above: Performed By: #### L IPID, BMP, CBC #### [address] Platelets (Bld) [#/Vol] 152 10*3/uL Normal 150-450 [facility] Comment on above: Performed By: #### L IPID, BMP, CBC #### [address] RBC (Bld) [#/Vol] 3.81 10*6/uL Normal 3.60-5.00 [facility] Comment on above: Performed By: #### L IPID, BMP, CBC #### [address] WBC (Bld) [#/Vol] 5.0 10*3/uL Normal 3.8-11.6 [facility] Comment on above: Performed By: #### L IPID, BMP, CBC #### [address] Creatinine [Mass/volume] in Serum or PlasmaOrdered By: Kimberly Arteaga on 03-13-2023 Creatinine [Mass/Vol] 1.35 mg/dL 0.60-1.20 [facility] Eosinophils Auto (Bld) [#/Vo l]Ordered By: Kimberly Arteaga on 03-13-2023 Eosinophils (Bld) [#/Vol] 0.1 10*3/uL 0.0-0.45 [facility] Eosinophils/100 WBC Auto (Bl d)Ordered By: Kimberly Arteaga on 03-13-2023 Eosinophils/100 WBC (Bld) 1.7 % . [facility] Erythrocyte distribution wid th Auto (RBC) [Ratio]Ordered By: Kimberly Arteaga on 03-13-2023 Erythrocyte distribution width (RBC) [Ratio] 16.8 % 11.9-15.3 [facility] Glucose Glucometer (BldC) [M ass/Vol]Ordered By: Kimberly Arteaga on 03-13-2023 Glucose [Mass/Vol] 162 mg/dL [facility] Comment on above: Random Glucose Refer ence Range is dependent on time and content of last meal. Glucose of more than 200 mg/dL in a nonstressed, ambulatory subject supports the diagnosis of Diabetes Mellitus. Glucose Poct Glucometerson 0 03-13-2023 Glucose [Mass/Vol] 162 mg/dL Normal [facility] Comment on above: Result Comment: [place] Glucose Reference Range is dependent on time and content of last meal. Glucose of more than 200 mg/dL in a nonstressed, ambulatory subject supports the diagnosis of Diabetes Mellitus. PERFORMED BY: [address] [address] PATHOLOGIST DYE LAB TECHNICIAN THERESA MULLER M.D. Performed By: #### G LUTARIQ #### Point of Care testing , Glucose [Mass/volume] in Ser um or PlasmaOrdered By: Kimberly Arteaga on 03-13-2023 Glucose [Mass/Vol] 130 mg/dL 70-100 [facility] Comment on above: ADA recommended refe rence rangeRandom Glucose Reference Range is dependent on time and content of last meal. Glucose of more than 200 mg/dL in a nonstressed, ambulatory subject supports the diagnosis of Diabetes Mellitus. Hematocrit Auto (Bld) [Volum e fraction]Ordered By: Kimberly Arteaga on 03-13-2023 Hematocrit (Bld) [Volume fraction] 32.5 % 34.0-46.4 [facility] Hemoglobin [Mass/volume] in BloodOrdered By: Kimberly Arteaga on 03-13-2023 Hemoglobin (Bld) [Mass/Vol] 10.9 g/dL 11.8-15.4 [facility] Leukocytes [#/volume] correc remberto for nucleated erythrocytes in Blood by Automated counOrdered By: Kimberly Arteaga on 03-13-2023 WBC corrected for nucl RBC Auto (Bld) [#/Vol] 5.0 10*3/uL 3.8-11.6 [facility] Lymphocytes Auto (Bld) [#/Vo l]Ordered By: Kimberly Arteaga on 03-13-2023 Lymphocytes (Bld) [#/Vol] 1.4 10*3/uL 1.00-4.8 [facility] Lymphocytes/100 WBC Auto (Bl d)Ordered By: Kimberly Arteaga on 03-13-2023 Lymphocytes/100 WBC (Bld) 28.5 % . [facility] MCH Auto (RBC) [Entitic mass ]Ordered By: Kimberly Arteaga on 03-13-2023 MCH (RBC) [Entitic mass] 28.6 pg 24.7-34.3 [facility] MCHC Auto (RBC) [Mass/Vol]Or dered By: Kimberly Arteaga on 03-13-2023 MCHC (RBC) [Mass/Vol] 33.5 g/dL 32.0-35.0 [facility] MCV Auto (RBC) [Entitic vol] Ordered By: Kimberly Arteaga on 03-13-2023 MCV (RBC) [Entitic vol] 85.3 fL 80-100 [facility] Monocytes Auto (Bld) [#/Vol] Ordered By: Kimberly Arteaga on 03-13-2023 Monocytes (Bld) [#/Vol] 0.3 10*3/uL 0.0-0.8 [facility] Monocytes/100 WBC Auto (Bld) Ordered By: Kimberly Arteaga on 03-13-2023 Monocytes/100 WBC (Bld) 6.9 % . [facility] Neutrophils Auto (Bld) [#/Vo l]Ordered By: Kimberly Arteaga on 03-13-2023 Neutrophils (Bld) [#/Vol] 3.1 10*3/uL 1.8-7.7 [facility] Neutrophils/100 WBC Auto (Bl d)Ordered By: Kimberly Arteaga on 03-13-2023 Neutrophils/100 WBC (Bld) 62.5 % . [facility] No Panel InformationOrdered By: iKmberly Arteaga on 03-13-2023 Estimated GFR (CKD-EPI) 41.239 mL/Min [facility] Creatinine Clearance (Chem 39.70 [facility] Nucleated erythrocytes [Pres ence] in Blood by Automated countOrdered By: Kimberly Arteaga on 03-13-2023 Nucleated RBC Auto Ql (Bld) 0.1 /100{WBC} 0-0.5 [facility] Platelet mean volume Auto (B ld) [Entitic vol]Ordered By: Kimberly Arteaga on 03-13-2023 Platelet mean volume (Bld) [Entitic vol] 7.2 fL 6.3-10.7 [facility] Platelets Auto (Bld) [#/Vol] Ordered By: Kimberly Arteaga on 03-13-2023 Platelets (Bld) [#/Vol] 152 10*3/uL 150-450 [facility] Potassium [Moles/volume] in Serum or PlasmaOrdered By: Kimberly Arteaga on 03-13-2023 Potassium [Moles/Vol] 3.8 mmol/L 3.5-5.1 [facility] RBC Auto (Bld) [#/Vol]Ordere d By: Kimberly Arteaga on 03-13-2023 RBC (Bld) [#/Vol] 3.81 10*6/uL 3.60-5.00 [facility] Redraw Potassiumon 3 Potassium [Moles/Vol] 3.8 mmol/L Normal 3.5-5.1 [facility] Comment on above: Order Comment: PREVI OUS SPECIMEN HEMOLYZED. Result Comment: PERF ORMED BY: [place] [address] PATHOLOGIST [employer]YE LAB TECHNICIAN THERESA MULLER M.D. Performed By: #### L IPID, BMP, CBC #### [address] Serum or plasma anion gap de terminationOrdered By: Kimberly Arteaga on 03-13-2023 Anion gap [Moles/Vol] TNP [facility] Comment on above: Test not performed Sodium [Moles/volume] in Ser um or PlasmaOrdered By: Kimberly Arteaga on 03-13-2023 Sodium [Moles/Vol] 141 mmol/L 136-145 [facility] Urea nitrogen [Mass/volume] in Serum or PlasmaOrdered By: Kimberly Arteaga on 03-13-2023 Urea nitrogen [Mass/Vol] 28 mg/dL 06-09 [facility] WBC Auto (Bld) [#/Vol]Ordere d By: Kimberly Arteaga on 03-13-2023 WBC (Bld) [#/Vol] 5.0 10*3/uL 3.8-11.6 [facility] Basic Metabolic Panelon 02-15 Anion gap [Moles/Vol] Not performed Normal 6.0-15.0 [facility] Comment on above: Performed By: #### L IPID, BMP, CBC #### [facility] [address] [place] [address] [place] Calcium [Mass/Vol] 7.9 mg/dL Low 8.6-10.3 [facility] Comment on above: Performed By: #### L IPID, BMP, CBC #### [facility] [address] [id number] [place] Chloride [Moles/Vol] 103 mmol/L Normal 98-107 [facility] Comment on above: Performed By: #### L IPID, BMP, CBC #### [facility] [address] [place] [address] [place] CO2 [Moles/Vol] 28.1 mmol/L Normal 21.0-31.0 [facility] Comment on above: Performed By: #### L IPID, BMP, CBC #### [facility] [address] [id number] [place] Creatinine [Mass/Vol] 1.74 mg/dL High 0.60-1.20 [facility] Comment on above: Performed By: #### L IPID, BMP, CBC #### [facility] [address] [place] [address] [place] Creatinine Clr Calc Pharmacy 30.80 [facility] Comment on above: Performed By: #### L IPID, BMP, CBC #### [facility] [address] [id number] [place] GFR/1.73 sq M.predicted MDRD (S/P/Bld) [Vol rate/Area] 30.413 mL/min/{1.73_m2} [facility] Comment on above: Performed By: #### L IPID, BMP, CBC #### [facility] [address] Glucose [Mass/Vol] 121 mg/dL High 70-100 [facility] Comment on above: Result Comment: [place] Glucose Reference Range is dependent on time and content of last meal. Glucose of more than 200 mg/dL in a nonstressed, ambulatory subject supports the diagnosis of Diabetes Mellitus. ADA recommended reference range Performed By: #### L IPID, BMP, CBC #### [facility] [address] [id number] [facility] Potassium Normal 3.5-5.1 [facility] Comment on above: Result Comment: Spec imen hemolyzed, redraw requested Performed By: #### L IPJASON, BMP, CBC #### [facility] [address] [id number] [place] Sodium [Moles/Vol] 141 mmol/L Normal 136-145 [facility] Comment on above: Performed By: #### L IPID, BMP, CBC #### [facility] [address] [id number] [place] Urea nitrogen [Mass/Vol] 38 mg/dL High 7-25 [facility] Comment on above: Performed By: #### L IPID, BMP, CBC #### [facility] [address] [id number] [place] Cholesterol [Mass/volume] in Serum or PlasmaOrdered By: Kimberly Arteaga on 03-12-2023 Cholesterol [Mass/Vol] 118 mg/dL 140-200 [facility] Comment on above: Chol less than 200 m g/dl low riskChol 201-239 mg/dl borderline riskChol 240 mg/dl and greater high risk Cholesterol in LDL Calc [Mas s/Vol]Ordered By: Kimberly Arteaga on 03-12-2023 Cholesterol in LDL [Mass/Vol] 51 mg/dL 0-100 [facility] Comment on above: LDL ATP III CLASSIFI CATIONLDL less than 100 mg/dL OptimalLDL 100-129 mg/dL Near or above optimalLDL 130-159 mg/dL Borderline highLDL 160-189 mg/dL HighLDL greater than 189 mg/dL Very high Cholesterol in VLDL Calc [Ma ss/Vol]Ordered By: Kimberly Arteaga on 03-12-2023 Cholesterol in VLDL [Mass/Vol] 32 mg/dL [facility] Complete Blood Count Auto Di ffon 03-12-2023 Basophils (Bld) [#/Vol] 0.0 10*3/uL Normal 0.0-0.2 [facility] Comment on above: Result Comment: PERF ORMED BY: [place] [address] PATHOLOGIST [employer]YE LAB TECHNICIAN THERESA MULLER M.D. Performed By: #### L IPID, BMP, CBC #### [address] Basophils/100 WBC (Bld) 0.3 % Normal . [facility] Comment on above: Performed By: #### L IPID, BMP, CBC #### [facility] [address] [place] [address] [place] Eosinophils (Bld) [#/Vol] 0.1 10*3/uL Normal 0.0-0.45 [facility] Comment on above: Performed By: #### L IPID, BMP, CBC #### [facility] [address] [place] [address] [place] Eosinophils/100 WBC (Bld) 2.1 % Normal . [facility] Comment on above: Performed By: #### L IPID, BMP, CBC #### [facility] [address] [place] [address] [place] Erythrocyte distribution width (RBC) [Ratio] 17.1 % High 11.9-15.3 [facility] Comment on above: Performed By: #### L IPID BMP, CBC #### [address] Hematocrit (Bld) [Volume fraction] 28.7 % Low 34.0-46.4 [facility] Comment on above: Performed By: #### L IPID BMP, CBC #### [address] Hemoglobin (Bld) [Mass/Vol] 9.7 g/dL Low 11.8-15.4 [facility] Comment on above: Performed By: #### L IPID BMP, CBC #### [address] Lymphocytes (Bld) [#/Vol] 1.3 10*3/uL Normal 1.00-4.8 [facility] Comment on above: Performed By: #### L IPID BMP, CBC #### [address] Lymphocytes/100 WBC (Bld) 32.1 % Normal . [facility] Comment on above: Performed By: #### L IPID BMP, CBC #### [address] MCH (RBC) [Entitic mass] 28.9 pg Normal 24.7-34.3 [facility] Comment on above: Performed By: #### L IPID BMP, CBC #### [address] MCV (RBC) [Entitic vol] 85.2 fL Normal 80-100 [facility] Comment on above: Performed By: #### L IPID, BMP, CBC #### [address] Mean Corpuscular HGB Conc 33.9 g/dL Normal 32.0-35.0 [facility] Comment on above: Performed By: #### L IPID, BMP, CBC #### [address] [place] [address] [place] Monocytes (Bld) [#/Vol] 0.3 10*3/uL Normal 0.0-0.8 [facility] Comment on above: Performed By: #### L IPID, BMP, CBC #### [facility] [address] [place] [address] [place] Monocytes/100 WBC (Bld) 6.6 % Normal . [facility] Comment on above: Performed By: #### L IPID, BMP, CBC #### [facility] [address] [place] [address] [place] Neutrophils (Bld) [#/Vol] 2.4 10*3/uL Normal 1.8-7.7 [facility] Comment on above: Performed By: #### L IPID, BMP, CBC #### [address] Neutrophils/100 WBC (Bld) 58.9 % Normal . [facility] Comment on above: Performed By: #### L IPID, BMP, CBC #### [facility] [address] [place] [address] [place] NRBC% 0.1 /100{WBC} Normal 0-0.5 [facility] Comment on above: Performed By: #### L IPID, BMP, CBC #### [facility] [address] [place] [address] Platelet mean volume (Bld) [Entitic vol] 7.4 fL Normal 6.3-10.7 [facility] Comment on above: Performed By: #### L IPID, BMP, CBC #### [facility] [address] [place] [address] [place] Platelets (Bld) [#/Vol] 117 10*3/uL Significant change down 150-450 [facility] Comment on above: Performed By: #### L IPID, BMP, CBC #### [facility] [address] [place] [address] [place] RBC (Bld) [#/Vol] 3.36 10*6/uL Low 3.60-5.00 [facility] Comment on above: Performed By: #### L IPID, BMP, CBC #### [facility] [address] WBC (Bld) [#/Vol] 4.0 10*3/uL Normal 3.8-11.6 [facility] Comment on above: Performed By: #### L IPID, BMP, CBC #### [facility] [address] ECH echo transthoracicon [facility] echo transthoracic [facility] [address] [place] [address] [place] [address] Echocardiogram Signed Patient: Anh Tejeda MR#: [id number] 036 : 1950 Acct:[id number] Age/Sex: 72 / F ADM Date: 03/11/23 Loc: Room: [address] [place] [address] Type: ADM IN Attending Dr: Kimberly Arteaga MD Ordering Provider: Kimberly Arteaga MD Date of Service: 03/11/23 [facility] echo transthoracic: stroke with bubble study Copies to: Karl Padilla MD, [facility] Kimberly Arteaga MD BSA: 2.0 m2 BP: [...] mmHg RAP systole: 3.0 mmHg Transcribed By: REDD Performed At: 03/12/23 1404 Signed By: Karl Padilla MD, [facility] 03/12/23 1554 Normal [facility] Glucose Poct Glucometerson 0 03-12-2023 Glucose [Mass/Vol] 303 mg/dL Normal [facility] Comment on above: Result Comment: [place] Glucose Reference Range is dependent on time and content of last meal. Glucose of more than 200 mg/dL in a nonstressed, ambulatory subject supports the diagnosis of Diabetes Mellitus. PERFORMED BY: [place] [address] PATHOLOGIST DYE LAB TECHNICIAN THERESA MULLER M.D. Performed By: #### L IPID, CMP, A1C WT eA, CBC #### [address] Glucose [Mass/Vol] 103 mg/dL Normal [facility] Comment on above: Result Comment: [place] Glucose Reference Range is dependent on time and content of last meal. Glucose of more than 200 mg/dL in a nonstressed, ambulatory subject supports the diagnosis of Diabetes Mellitus. PERFORMED BY: [place] [address] PATHOLOGIST DYE LAB TECHNICIAN THERESA MULLER M.D. Performed By: #### L IPID, BMP, CBC #### [facility] [address] [place] [address] Glucose [Mass/Vol] 359 mg/dL Normal [facility] Comment on above: Result Comment: [place] Glucose Reference Range is dependent on time and content of last meal. Glucose of more than 200 mg/dL in a nonstressed, ambulatory subject supports the diagnosis of Diabetes Mellitus. PERFORMED BY: [place] [address] PATHOLOGIST DYE LAB TECHNICIAN THERESA MULLER M.D. Performed By: #### L IPID, BMP, CBC #### [facility] [address] [place] [address] [place] Glucose [Mass/Vol] 142 mg/dL Normal [facility] Comment on above: Result Comment: [facility] Glucose Reference Range is dependent on time and content of last meal. Glucose of more than 200 mg/dL in a nonstressed, ambulatory subject supports the diagnosis of Diabetes Mellitus. PERFORMED BY: [place] [address] PATHOLOGIST DYE LAB TECHNICIAN THERESA MULLER M.D. Performed By: #### G LULS #### Point of Care testing , Lipid Panelon 03-12-2023 Cholesterol [Mass/Vol] 118 mg/dL Low 140-200 [facility] Comment on above: Result Comment: Chol less than 200 mg/dl low risk Chol 201-239 mg/dl borderline risk Chol 240 mg/dl and greater high risk Performed By: #### L IPID, BMP, CBC #### [facility] [address] [place] [address] [facility] Cholesterol in HDL [Mass/Vol] 35 mg/dL Normal 35-85 [facility] Comment on above: Result Comment: HDL CHOL ATP-III CLASSIFICATION Cardiovascular Risk HDL > or equal to 60 mg/dL LOW HDL < 40 mg/dL HIGH Performed By: #### L IPID, BMP, CBC #### [facility] [address] [place] [id number] [place] Cholesterol.total/Chol esterol in HDL [Mass ratio] 3.4 {ratio} Normal <5.0 [facility] Comment on above: Result Comment: PERF ORMED BY: [facility] [address] [place] [address] PATHOLOGIST DYE LAB TECHNICIAN THERESA MULLER M.D. Performed By: #### L IPID, BMP, CBC #### [facility] [address] [place] [address] [place] LDL Cholesterol,Calculated 51 mg/dL Normal 0-100 [facility] Comment on above: Result Comment: LDL ATP III CLASSIFICATION LDL less than 100 mg/dL Optimal LDL 100-129 mg/dL Near or above optimal LDL 130-159 mg/dL Borderline high LDL 160-189 mg/dL High LDL greater than 189 mg/dL Very high Performed By: #### L IPID, BMP, CBC #### [facility] [address] Triglyceride w/Reflex 160 mg/dL High 0-149 [facility] Comment on above: Result Comment: TRIG ATP III CLASSIFICATION TRIG less than 150 mg/dL Normal TRIG 150-199 mg/dL Borderline high TRIG 200-500 mg/dL High TRIG greater than 500 mg/dL Very high Standard traceable to the Center for Disease Conrtrol and Prevention (CDC) test method. Performed By: #### L IPID, BMP, CBC #### [facility] [address] VLDL CHOLESTEROL 32 mg/dL Normal [facility] Comment on above: Performed By: #### L IPID, BMP, CBC #### [facility] [address] MR head/brain wo conon 03-12 MR head/brain wo con [facility] [address] [place] [address] [place] [address] MRI Report Signed Patient: Anh Tejdea MR#: [id number] 036 : 1950 Acct:[id number] Age/Sex: 72 / F ADM Date: 03/11/23 Loc: 3T Room: [address] [place] [address] Type: ADM IN Attending Dr: Kimberly Arteaga [...] Riki Garnica M.D.03/12/2023 8:58 AM Dictation Location: [place] [address] Transcribed By: [facility] 03/12/23857 Dictated By: Riki Garnica II, MD 03/12/23 0849 Signed By: 03/12/23857 Normal [facility] Redraw Potassiumon 3 Potassium [Moles/Vol] 4.4 mmol/L Normal 3.5-5.1 [facility] Comment on above: Result Comment: PERF ORMED BY: [place] [address] PATHOLOGIST DYE LAB TECHNICIAN THERESA MULLER M.D. Performed By: #### L IPID, BMP, CBC #### [facility] [address] [place] [address] Serum or plasma high density lipoprotein (HDL) cholesterol measurementOrdered By: Kimberly Arteaga on 03-12-2023 Cholesterol in HDL [Mass/Vol] 35 mg/dL 35-85 [facility] Comment on above: HDL CHOL ATP-III CLA SSIFICATION Cardiovascular RiskHDL > or equal to 60 mg/dL LOWHDL < 40 mg/dL HIGH Serum or plasma total choles terol/high density lipoprotein (HDL) cholesterol mass ratOrdered By: Kimberly Arteaga on 03-12-2023 Cholesterol.total/Chol esterol in HDL [Mass ratio] 3.4 {ratio} <5.0 [facility] Triglyceride [Mass/volume] i n Serum or PlasmaOrdered By: Kimberly Arteaga on 03-12-2023 Triglyceride [Mass/Vol] 160 mg/dL 0-149 [facility] Comment on above: TRIG ATP III [...] aPTT Coag (PPP) [Time] 33.9 s 25.1-36.5 [facility] Automated erythrocytes count in urine sediment (number/area)Ordered By: Lamin Rose on 03-11-2023 RBC Auto (Urine sed) [#/Area] 0-1 [HPF] 0-4 [facility] Automated leukocytes count i n urine sediment (number/area)Ordered By: Lamin Rose on 03-11-2023 WBC Auto (Urine sed) [#/Area] 10-19 [HPF] 0-4 [facility] Basic Metabolic Panelon 02-15 Anion gap [Moles/Vol] 15.4 mmol/L High 6.0-15.0 [facility] Comment on above: Performed By: #### L IPID, CMP, A1C WTH eA, CBC #### [facility] [address] [place] [id number] [place] Calcium [Mass/Vol] 8.3 mg/dL Low 8.6-10.3 [facility] Comment on above: Performed By: #### L IPID, CMP, A1C WTH eA, CBC #### [facility] [address] [place] [address] [place] Chloride [Moles/Vol] 104 mmol/L Normal 98-107 [facility] Comment on above: Performed By: #### L IPID, CMP, A1C WTH eA, CBC #### [facility] [address] [place] [address] [place] CO2 [Moles/Vol] 26.9 mmol/L Normal 21.0-31.0 [facility] Comment on above: Performed By: #### L IPID, CMP, A1C WTH eA, CBC #### [facility] [address] [place] [id number] [place] Creatinine [Mass/Vol] 1.61 mg/dL High 0.60-1.20 [facility] Comment on above: Performed By: #### L IPID, CMP, A1C WTH eA, CBC #### [facility] [address] [place] [address] [place] Creatinine Clr Calc Pharmacy 33.67 [facility] Comment on above: Result Comment: PERF ORMED BY: [place] [address] PATHOLOGIST DYE LAB TECHNICIAN THERESA MULLER M.D. Performed By: #### L IPID, CMP, A1C WTH eA, CBC #### [facility] [address] [place] [address] [place] GFR/1.73 sq M.predicted MDRD (S/P/Bld) [Vol rate/Area] 33.383 mL/min/{1.73_m2} [facility] Comment on above: Performed By: #### L IPID, CMP, A1C WTH eA, CBC #### [address] Glucose [Mass/Vol] 164 mg/dL High 70-100 [facility] Comment on above: Result Comment: [facility] Glucose Reference Range is dependent on time and content of last meal. Glucose of more than 200 mg/dL in a nonstressed, ambulatory subject supports the diagnosis of Diabetes Mellitus. ADA recommended reference range Performed By: #### L IPID, CMP, A1C WTH eA, CBC #### [facility] [address] [place] [address] [place] Potassium [Moles/Vol] 4.3 mmol/L Normal 3.5-5.1 [facility] Comment on above: Performed By: #### L IPID, CMP, A1C WTH eA, CBC #### [facility] [address] [place] [address] [place] Sodium [Moles/Vol] 142 mmol/L Normal 136-145 [facility] Comment on above: Performed By: #### L IPID, CMP, A1C WTH eA, CBC #### [facility] [address] [place] [address] [place] Urea nitrogen [Mass/Vol] 37 mg/dL High 7-25 [facility] Comment on above: Performed By: #### L IPID, CMP, A1C WTH eA, CBC #### [facility] [address] [place] [id number] [facility] Bilirubin Test strip Ql (U)O rdered By: Lamin Rose on 03-11-2023 Bilirubin Ql (U) Negative Negative [facility] CT angio neckon 03-11-2023 CT angio neck [facility] [address] [place] [address] [place] [address] CT Scan Report Signed Patient: Anh Tejeda MR#: [id number] 036 : 1950 Acct:[id number] Age/Sex: 72 / F ADM Date: 03/11/23 Loc: ER Room: Type: [facility] ER Attending Dr: Copies to: Lamin Rose MD Ordering Provider: Lamin Rose MD Date of Service: 03/11/23 CT/CT angio head: Stroke alert ([id number]) CT/CT angio neck: Stroke alert CT angio [...] Riki Garnica M.D.03/11/2023 4:03 PM Dictation Location: [place] [address] Transcribed By: [place] 03/11/23 1603 Dictated By: Riki Garnica II, MD 03/11/23 1557 Signed By: 03/11/23 1603 Normal [facility] CT head stroke alert wo cono n 03-11-2023 CT head stroke alert wo [facility] [address] [place] [address] [place] [address] CT Scan Report Signed Patient: Anh Tejeda MR#: [id number] 036 : 1950 Acct:[id number] Age/Sex: 72 / F ADM Date: 03/11/23 Loc: ER Room: Type: [facility] ER Attending Dr: Copies to: Lamin [...] Riki Garnica M.D.03/11/2023 3:55 PM Dictation Location: [place] [address] Transcribed By: [facility] 03/11/23 5522 Dictated By: Riki Garnica II, MD 03/11/23 1549 Signed By: 03/11/23 1555 Normal [facility] Color Auto (U)Ordered By: Sobeida Rose on 03-11-2023 Color (U) Yellow Yellow [facility] Complete Blood Count Auto Di ffon 03-11-2023 Basophils (Bld) [#/Vol] 0.0 10*3/uL Normal 0.0-0.2 [facility] Comment on above: Result Comment: PERF ORMED BY: [place] [address] PATHOLOGIST DYE LAB TECHNICIAN THERESA MULLER M.D. Performed By: #### L IPID, CMP, A1C WTH eA, CBC #### [facility] [address] [place] [address] [place] Basophils/100 WBC (Bld) 0.4 % Normal . [facility] Comment on above: Performed By: #### L IPID, CMP, A1C WTH eA, CBC #### [facility] [address] [place] [address] [place] Eosinophils (Bld) [#/Vol] 0.1 10*3/uL Normal 0.0-0.45 [facility] Comment on above: Performed By: #### L IPID, CMP, A1C WTH eA, CBC #### [facility] [address] [place] [address] [place] Eosinophils/100 WBC (Bld) 1.4 % Normal . [facility] Comment on above: Performed By: #### L IPID, CMP, A1C WTH eA, CBC #### [address] Erythrocyte distribution width (RBC) [Ratio] 16.8 % High 11.9-15.3 [facility] Comment on above: Performed By: #### L IPID, CMP, A1C WTH eA, CBC #### [address] Hematocrit (Bld) [Volume fraction] 32.0 % Low 34.0-46.4 [facility] Comment on above: Performed By: #### L IPID, CMP, A1C WTH eA, CBC #### [address] Hemoglobin (Bld) [Mass/Vol] 10.7 g/dL Low 11.8-15.4 [facility] Comment on above: Performed By: #### L IPID, CMP, A1C WTH eA, CBC #### [address] Lymphocytes (Bld) [#/Vol] 1.4 10*3/uL Normal 1.00-4.8 [facility] Comment on above: Performed By: #### L IPID, CMP, A1C WTH eA, CBC #### [address] Lymphocytes/100 WBC (Bld) 24.2 % Normal . [facility] Comment on above: Performed By: #### L IPID, CMP, A1C WTH eA, CBC #### [address] MCH (RBC) [Entitic mass] 28.6 pg Normal 24.7-34.3 [facility] Comment on above: Performed By: #### L IPID, CMP, A1C WTH eA, CBC #### [address] MCV (RBC) [Entitic vol] 85.5 fL Normal 80-100 [facility] Comment on above: Performed By: #### L IPID, CMP, A1C WTH eA, CBC #### [address] [place] [address] [place] Mean Corpuscular HGB Conc 33.5 g/dL Normal 32.0-35.0 [facility] Comment on above: Performed By: #### L IPID, CMP, A1C WTH eA, CBC #### [facility] [address] [place] [address] [place] Monocytes (Bld) [#/Vol] 0.3 10*3/uL Normal 0.0-0.8 [facility] Comment on above: Performed By: #### L IPID, CMP, A1C WTH eA, CBC #### [facility] [address] [place] [address] [place] Monocytes/100 WBC (Bld) 17.19 % Normal 0.00-20.00 [facility] Comment on above: Performed By: #### L IPID, CMP, A1C WTH eA, CBC #### [place] [address] [place] Monocytes/100 WBC (Bld) 6.1 % Normal . [facility] Comment on above: Performed By: #### L IPID, CMP, A1C WTH eA, CBC #### [place] [address] [place] Neutrophils (Bld) [#/Vol] 3.9 10*3/uL Normal 1.8-7.7 [facility] Comment on above: Performed By: #### L IPID, CMP, A1C WTH eA, CBC #### [place] [address] [place] Neutrophils/100 WBC (Bld) 67.9 % Normal . [facility] Comment on above: Performed By: #### L IPID, CMP, A1C WTH eA, CBC #### [facility] [address] [place] [address] [place] NRBC% 0.1 /100{WBC} Normal 0-0.5 [facility] Comment on above: Performed By: #### L IPID, CMP, A1C WTH eA, CBC #### [facility] [address] [place] [address] [place] Platelet mean volume (Bld) [Entitic vol] 7.5 fL Normal 6.3-10.7 [facility] Comment on above: Performed By: #### L IPID, CMP, A1C WTH eA, CBC #### [facility] [address] [place] [address] [place] Platelets (Bld) [#/Vol] 145 10*3/uL Low 150-450 [facility] Comment on above: Performed By: #### L IPID, CMP, A1C WTH eA, CBC #### [facility] [address] RBC (Bld) [#/Vol] 3.75 10*6/uL Normal 3.60-5.00 [facility] Comment on above: Performed By: #### L IPID, CMP, A1C WTH eA, CBC #### [facility] [address] WBC (Bld) [#/Vol] 5.7 10*3/uL Normal 3.8-11.6 [facility] Comment on above: Performed By: #### L IPID, CMP, A1C WTH eA, CBC #### [facility] [address] Creatine Kinaseon 03-11-2023 CK [Catalytic activity/Vol] 64 U/L Normal 30-223 [facility] Comment on above: Performed By: #### L IPID, CMP, [facility] WT eA, CBC #### [facility] [address] [place] [address] Creatine kinase [Enzymatic a ctivity/volume] in Serum or PlasmaOrdered By: Lamin Rose on 03-11-2023 CK [Catalytic activity/Vol] 64 U/L 30-223 [facility] Creatinine (Bld) [Mass/Vol]O rdered By: Lamin Rose on 03-11-2023 Creatinine [Mass/Vol] 1.7 mg/dL 0.6-1.3 [facility] Comment on above: ER/ESD physician is notified/shown all ISTAT results.Critical values may be confirmed by laboratory testing ifdeemed necessary by ER attending doctor. Dipstick and Microscopicon 0 4-26-2023 Appearance (U) Clear Normal Clear [facility] Comment on above: Order Comment: Name Collection Type:: Clean-Voided Midstream Performed By: #### L IPID, CMP, A1C WTH eA, CBC #### [facility] [address] [place] [address] [place] Bacteria,Urine None Seen Normal None Seen [facility] Comment on above: Order Comment: Name Collection Type:: Clean-Voided Midstream Performed By: #### L IPID, CMP, A1C WTH eA, CBC #### [facility] [address] [place] [address] [place] Bilirubin,Urine Negative Normal Negative [facility] Comment on above: Order Comment: Name Collection Type:: Clean-Voided Midstream Performed By: #### L IPID, CMP, A1C WTH eA, CBC #### [facility] [address] [place] [address] [place] Color (U) Yellow Normal Yellow [facility] Comment on above: Order Comment: Name Collection Type:: Clean-Voided Midstream Performed By: #### L IPID, CMP, A1C WTH eA, CBC #### [facility] [address] [place] [address] [place] Glucose Ql (U) Normal Normal Normal [facility] Comment on above: Order Comment: Name Collection Type:: Clean-Voided Midstream Performed By: #### L IPID, CMP, A1C WTH eA, CBC #### [facility] [address] [place] [address] [place] Hyaline Casts,Urine 0-8 Normal 0-8 [facility] Comment on above: Order Comment: Name Collection Type:: Clean-Voided Midstream Result Comment: PERF ORMED BY: [place] [address] PATHOLOGIST DYE LAB TECHNICIAN THERESA MULLER M.D. Performed By: #### L IPID, CMP, A1C WTH eA, CBC #### [facility] [address] [place] [address] [place] Ketones Ql (U) Negative Normal Negative [facility] Comment on above: Order Comment: Name Collection Type:: Clean-Voided Midstream Performed By: #### L IPID, CMP, A1C WTH eA, CBC #### [facility] [address] [place] [address] Leukocyte esterase Test strip Ql (U) 2+ High Negative [facility] Comment on above: Order Comment: Name Collection Type:: Clean-Voided Midstream Performed By: #### L IPID, CMP, A1C WTH eA, CBC #### [place] [address] [place] Nitrite,Urine Negative Normal Negative [facility] Comment on above: Order Comment: Name Collection Type:: Clean-Voided Midstream Performed By: #### L IPID, CMP, A1C WTH eA, CBC #### [address] Occult Blood,Urine Negative Normal Negative [facility] Comment on above: Order Comment: Name Collection Type:: Clean-Voided Midstream Result Comment: PERF ORMED BY: [place] [address] PATHOLOGIST DYE LAB TECHNICIAN THERESA MULLER M.D. Performed By: #### L IPID, CMP, A1C WTH eA, CBC #### [address] pH (U) 5.0 [pH] Normal 5.0-9.0 [facility] Comment on above: Order Comment: Name Collection Type:: Clean-Voided Midstream Performed By: #### L IPID, CMP, A1C WTH eA, CBC #### [place] [address] [place] Protein,Urine Negative Normal Negative [facility] Comment on above: Order Comment: Name Collection Type:: Clean-Voided Midstream Performed By: #### L IPID, CMP, A1C WTH eA, CBC #### [place] [address] [place] RBC LM.HPF (Urine sed) [#/Area] 0 /[HPF] Normal 0-4 [facility] Comment on above: Order Comment: Name Collection Type:: Clean-Voided Midstream Performed By: #### L IPID, CMP, A1C WTH eA, CBC #### [facility] [address] Specificy [place],Urine 1.020 Normal 1.001-1.03 0 [facility] Comment on above: Order Comment: Name Collection Type:: Clean-Voided Midstream Performed By: #### L IPID, CMP, A1C WTH eA, CBC #### [facility] [address] Squamous Epithelial Cell,Urine 5-9 High 0-2 [facility] Comment on above: Order Comment: Name Collection Type:: Clean-Voided Midstream Performed By: #### L IPID, CMP, A1C WTH eA, CBC #### [facility] [address] [place] [address] Urobilinogen,Urine Normal Normal Normal [facility] Comment on above: Order Comment: Name Collection Type:: Clean-Voided Midstream Performed By: #### L IPID, CMP, A1C WTH eA, CBC #### [facility] [address] [place] [address] [place] WBC,Urine 10-19 High 0-4 [facility] Comment on above: Order Comment: Name Collection Type:: Clean-Voided Midstream Performed By: #### L IPID, CMP, A1C WTH eA, CBC #### [facility] [address] [place] [address] ECG 12 lead ECGon 03-11-2023 ECG 12 lead ECG [facility] [place] [address] Electrocardiograph Report Signed Patient: Anh Teejda MR#: [id number] 036 : 1950 Acct:[id number] Age/Sex: 72 / F ADM Date: 03/11/23 Loc: Room: [address] [place] [address] Type: ADM [place] Attending Dr: Kimberly Arteaga [...] Signed By Lamin Rose MD 02/15 Normal [facility] Glucose Poct Glucometerson 0 03-11-2023 Commemt1 Glu2: Cleaned Meter Normal [facility] Comment on above: Result Comment: PERF ORMED BY: [place] [address] PATHOLOGIST DYE LAB TECHNICIAN THERESA MULLER M.D. Performed By: #### L IPID, BMP, CBC #### [facility] [address] [place] [address] Glucose [Mass/Vol] 193 mg/dL Normal [facility] Comment on above: Result Comment: [facility] Glucose Reference Range is dependent on time and content of last meal. Glucose of more than 200 mg/dL in a nonstressed, ambulatory subject supports the diagnosis of Diabetes Mellitus. Performed By: #### L IPID, BMP, CBC #### [facility] [address] [place] [address] Ketones Auto test strip (U) [Mass/Vol]Ordered By: Lamin Rose on 03-11-2023 Ketones (U) [Mass/Vol] Negative Negative [facility] [facility] - CoagulationOrde red By: Lamin Rose on 03-11-2023 PT Coag (PPP) [Time] 13.5 s 9.0-12.9 [facility] Laboratory - UrinalysisOrder ed By: Lamin Rose on 03-11-2023 Hyaline casts LM Ql (Urine sed) 0-8 [LPF] 0-8 [facility] Monocyte distribution width [Entitic volume] in Blood by AutomatedOrdered By: Lamin Rose on 03-11-2023 Monocyte distribution width Auto (Bld) [Entitic vol] 17.19 % 0.00-20.00 [facility] Nitrite Test strip Ql (U)Ord ered By: Lamin Rose on 03-11-2023 Nitrite Ql (U) Negative Negative [facility] No Panel InformationOrdered By: Lamin Rose on 03-11-2023 Bedside Glucose Comment Glu2: cleaned meter [facility] Partial Thromboplastin Timeo n 03-11-2023 aPTT Coag (Bld) [Time] 33.9 s Normal 25.1-36.5 [facility] Comment on above: Result Comment: PERF ORMED BY: [place] [address] PATHOLOGIST DYE LAB TECHNICIAN THERESA MULLER M.D. Performed By: #### L IPID, CMP, A1C WTH eA, CBC #### [facility] [address] Platelet poor plasma interna tional normalized ratio (INR) by coagulation assay (relatOrdered By: Lamin Rose on 03-11-2023 INR Coag (PPP) [Relative time] 1.2 {INR} [facility] Comment on above: INR Therapeutic Rang [...] on 03-11-2023 Protein (U) [Mass/Vol] Negative Negative [facility] Prothrombin Time INRon 03-11 INR Coag (PPP) [Relative time] 1.2 {INR} Normal [facility] Comment on above: Result Comment: INR [...] 3 - 4.5 Performed By: #### L IPID, RISHABH, A1C [facility] eA, CBC #### [facility] [address] PT Coag (PPP) [Time] 13.5 s High 9.0-12.9 [facility] Comment on above: Performed By: #### L IPID, CMP, [address] eA, CBC #### [facility] [address] Specific gravity Auto test s trip (U) [Rel density]Ordered By: Lamin Rose on 03-11-2023 Specific gravity (U) [Rel density] 1.020 1.001-1.03 0 [facility] Squamous epithelial cells de tection in urine sediment by light microscopyOrdered By: Lamin Rose on 03-11-2023 Epithelial cells.squamous LM Ql (Urine sed) 5-9 [HPF] 0-2 [facility] Troponin I High Sensitivityo n 03-11-2023 Troponin I High Sensitivity 3.7 pg/mL Normal 0.0-15.0 [facility] Comment on above: Result Comment: PERF ORMED BY: [place] [address] PATHOLOGIST DYE LAB TECHNICIAN THERESA MULLER M.D. Performed By: #### L IPID, CMP, [address] eA, CBC #### [facility] [address] Troponin I.cardiac [Mass/vol ume] in Serum or Plasma by Detection limit <= 0.01 ng/Ordered By: Lamin Rose on 03-11-2023 Troponin I.cardiac DL <= 0.01 ng/mL [Mass/Vol] 3.7 pg/mL 0.0-15.0 [facility] Urine Cultureon 03-11-2023 Bacteria identified Cx Nom (U) ORGANISM: Escherichia coli (O:ESCCOL) Forrest Count >100,000 Aerobic JUNAID Charge (NMIC56) SUSCEPTIBILITY [...] RESISTANT TO ALL B-LACTAM DRUGS. PERFORMED BY: [facility] [address] [place] [address] PATHOLOGIST DYE LAB TECHNICIAN THERESA MULLER M.D. Normal [facility] Comment on above: Performed By: #### L IPID, CMP, A1C WTH eA, CBC #### [facility] [address] Urine bacteria detection by automated methodOrdered By: Lamin Rose on 03-11-2023 Bacteria Auto Ql (U) None seen None Seen [facility] Urine clarity by refractomet ry automatedOrdered By: Lamin Rose on 03-11-2023 Clarity Refractometry automated (U) Clear Clear [facility] Urine culture routineOrdered By: Lamin Rose on 03-11-2023 Bacteria identified Cx Nom (U) Escherichia coli [facility] Urine glucose measurement by automated test strip (mass/volume)Ordered By: Lamin Rose on 03-11-2023 Glucose Auto test strip (U) [Mass/Vol] Normal mg/dL Normal [facility] Urine hemoglobin detection b y automated test stripOrdered By: Lamin Rose on 03-11-2023 Hemoglobin Auto test strip Ql (U) Negative Negative [facility] Urine leukocyte esterase det ection by automated test stripOrdered By: Lamin Rose on 03-11-2023 Leukocyte esterase Auto test strip Ql (U) 2+ Negative [facility] Urobilinogen Auto test strip (U) [Mass/Vol]Ordered By: Lamin Rose on 03-11-2023 Urobilinogen (U) [Mass/Vol] Normal mg/dL Normal [facility] XR chest 1V portableon 03-11 XR chest 1V portable [facility] [place] [address] XRay Report Signed Patient: Anh Tejeda MR#: [id number] : [id number] Acct:[id number] Age/Sex: 72 / F ADM Date: 03/11/23 Loc: ER Room: Type: [facility] ER Attending Dr: Copies to: Lamin [...] Riki Garnica M.D.03/11/2023 4:19 PM Dictation Location: [place] [address] Transcribed By: [facility] 03/11/23 0469 Dictated By: Riki Garnica II, MD 03/11/23 1617 Signed By: 03/11/23 1619 Normal [facility] pH Auto test strip (U)Ordere d By: Lamin Rose on 03-11-2023 pH (U) 5.0 [pH] 5.0-9.0 [facility] MAGNESIUMon 02-23-2023 Magnesium [Mass/Vol] 1.3 mg/dL Critically low 1.8-2.4 [facility] Comment on above: Performed By: #### M G #### [facility] [address] [address] [address] Anamika Varghese Albumin [Mass/volume] in Ser um or PlasmaOrdered By: Vinay Bunting on 01-16-2023 Albumin [Mass/Vol] 3.6 g/dL 3.2-5.5 [facility] Alkaline phosphatase [Enzyma tic activity/volume] in Serum or PlasmaOrdered By: Vinay Bunting on 01-16-2023 ALP [Catalytic activity/Vol] 100 U/L 32-92 [facility] Aspartate aminotransferase [ Enzymatic activity/volume] in Serum or PlasmaOrdered By: Vinay Bunting on 01-16-2023 AST [Catalytic activity/Vol] 31 U/L 10-42 [facility] Basophils Auto (Bld) [#/Vol] Ordered By: Vinay Bunting on 01-16-2023 Basophils (Bld) [#/Vol] 0.0 10*3/uL 0.0-0.2 [facility] Basophils/100 WBC Auto (Bld) Ordered By: Vinay Bunting on 01-16-2023 Basophils/100 WBC (Bld) 0.2 % . [facility] Bilirubin.total [Mass/volume ] in Serum or PlasmaOrdered By: Vinay Bunting on 01-16-2023 Bilirubin [Mass/Vol] 0.5 mg/dL 0.3-1.2 [facility] Calcium [Mass/volume] in Ser um or PlasmaOrdered By: Vinay Bunting on 01-16-2023 Calcium [Mass/Vol] 8.2 mg/dL 8.2-10.2 [facility] Carbon dioxide, total [Moles /volume] in Serum or PlasmaOrdered By: Vinay Bunting on 01-16-2023 CO2 [Moles/Vol] 28.0 mmol/L 22.0-30.0 [facility] Chloride [Moles/volume] in S hilda or PlasmaOrdered By: Vinay Bunting on 01-16-2023 Chloride [Moles/Vol] 101 mmol/L 95-114 [facility] Cholesterol [Mass/volume] in Serum or PlasmaOrdered By: Vinay Bunting on 01-16-2023 Cholesterol [Mass/Vol] 130 mg/dL 140-200 [facility] Comment on above: Chol less than 200 m g/dl low riskChol 201-239 mg/dl borderline riskChol 240 mg/dl and greater high risk Cholesterol in LDL Calc [Mas s/Vol]Ordered By: Vinay Bunting on 01-16-2023 Cholesterol in LDL [Mass/Vol] 74 mg/dL 0-100 [facility] Comment on above: LDL ATP III CLASSIFI CATIONLDL less than 100 mg/dL OptimalLDL 100-129 mg/dL Near or above optimalLDL 130-159 mg/dL Borderline highLDL 160-189 mg/dL HighLDL greater than 189 mg/dL Very high Cholesterol in VLDL Calc [Ma ss/Vol]Ordered By: Vinay Bunting on 01-16-2023 Cholesterol in VLDL [Mass/Vol] 21 mg/dL [facility] Creatinine and Glomerular fi ltration rate.predicted panel (S/P/Bld)Ordered By: Vinay Bunting on 01-16-2023 Creatinine [Mass/Vol] 1.51 mg/dL 0.44-1.03 [facility] Eosinophils Auto (Bld) [#/Vo l]Ordered By: Vinay Bunting on 01-16-2023 Eosinophils (Bld) [#/Vol] 0.1 10*3/uL 0.0-0.45 [facility] Eosinophils/100 WBC Auto (Bl d)Ordered By: Vinay Bunting on 01-16-2023 Eosinophils/100 WBC (Bld) 2.2 % . [facility] Erythrocyte distribution wid th Auto (RBC) [Ratio]Ordered By: Vinay Bunting on 01-16-2023 Erythrocyte distribution width (RBC) [Ratio] 17.4 % 11.9-15.3 [facility] Estimated glomerular filtrat ion rate (GFR) non- AmericanOrdered By: Vinay Matta on 01-16-2023 GFR/1.73 sq M.predicted among non-blacks MDRD (S/P/Bld) [Vol rate/Area] 34 mL/Min [facility] Globulin Calc (S) [Mass/Vol] Ordered By: Vinay Matta on 01-16-2023 Globulin (S) [Mass/Vol] 2.3 g/dL [facility] Glucose [Mass/volume] in Ser um or PlasmaOrdered By: Vinay Matta on 01-16-2023 Glucose [Mass/Vol] 162 mg/dL 70-100 [facility] Comment on above: ADA recommended refe rence rangeRandom Glucose Reference Range is dependent on time and content of last meal. Glucose of more than 200 mg/dL in a nonstressed, ambulatory subject supports the diagnosis of Diabetes Mellitus. Glucose mean value [Mass/vol ume] in Blood Estimated from glycated hemoglobinOrdered By: Vinay Matta on 01-16-2023 Average glucose Estimated from glycated hemoglobin (Bld) [Mass/Vol] 171 mg/dL [facility] Hematocrit Auto (Bld) [Volum e fraction]Ordered By: Vinay Matta on 01-16-2023 Hematocrit (Bld) [Volume fraction] 31.4 % 34.0-46.4 [facility] Hemoglobin A1c percentageOrd ered By: Vinay Matta on 01-16-2023 HbA1c (Bld) [Mass fraction] 7.6 % 4.3-5.6 [facility] Comment on above: Increased risk for d iabetes: 5.7 - 6.4diabetes: >6.4glycemic control for adults with diabetes: <7.0 Hemoglobin [Mass/volume] in BloodOrdered By: Vinay Matta on 01-16-2023 Hemoglobin (Bld) [Mass/Vol] 10.6 g/dL 11.8-15.4 [facility] Leukocytes [#/volume] correc remberto for nucleated erythrocytes in Blood by Automated counOrdered By: Vinay Matta on 01-16-2023 WBC corrected for nucl RBC Auto (Bld) [#/Vol] 5.7 10*3/uL 3.8-11.6 [facility] Lymphocytes Auto (Bld) [#/Vo l]Ordered By: Vinay Bunting on 01-16-2023 Lymphocytes (Bld) [#/Vol] 1.3 10*3/uL 1.00-4.8 [facility] Lymphocytes/100 WBC Auto (Bl d)Ordered By: Vinay Bunting on 01-16-2023 Lymphocytes/100 WBC (Bld) 22.6 % . [facility] MCH Auto (RBC) [Entitic mass ]Ordered By: Vinay Bunting on 01-16-2023 MCH (RBC) [Entitic mass] 28.7 pg 24.7-34.3 [facility] MCHC Auto (RBC) [Mass/Vol]Or dered By: Vinay Bunting on 01-16-2023 MCHC (RBC) [Mass/Vol] 33.7 g/dL 32.0-35.0 [facility] MCV Auto (RBC) [Entitic vol] Ordered By: Vinay Bunting on 01-16-2023 MCV (RBC) [Entitic vol] 85.1 fL 80-100 [facility] Monocytes Auto (Bld) [#/Vol] Ordered By: Vinay Bunting on 01-16-2023 Monocytes (Bld) [#/Vol] 0.3 10*3/uL 0.0-0.8 [facility] Monocytes/100 WBC Auto (Bld) Ordered By: Vinay Bunting on 01-16-2023 Monocytes/100 WBC (Bld) 4.5 % . [facility] Neutrophils Auto (Bld) [#/Vo l]Ordered By: Vinay Bunting on 01-16-2023 Neutrophils (Bld) [#/Vol] 4.0 10*3/uL 1.8-7.7 [facility] Neutrophils/100 WBC Auto (Bl d)Ordered By: Vinay Bunting on 01-16-2023 Neutrophils/100 WBC (Bld) 70.5 % . [facility] No Panel InformationOrdered By: Vinay Bunting on 01-16-2023 Estimated GFR () 41 mL/Min [facility] Comment on above: GFR estimated refere nce range: According to KDOQI guidelines, <60 ml/min/1.73m2 is sufficient to diagnose a patient with chronic kidney disease. Pharmacy Creatinine Clearance (Chem N/A [facility] Nucleated erythrocytes [Pres ence] in Blood by Automated countOrdered By: Vinay Bunting on 01-16-2023 Nucleated RBC Auto Ql (Bld) 0.1 /100{WBC} 0-0.5 [facility] Platelet mean volume Auto (B ld) [Entitic vol]Ordered By: Vinay Bunting on 01-16-2023 Platelet mean volume (Bld) [Entitic vol] 7.4 fL 6.3-10.7 [facility] Platelets Auto (Bld) [#/Vol] Ordered By: Vinay Bunting on 01-16-2023 Platelets (Bld) [#/Vol] 152 10*3/uL 150-450 [facility] Potassium [Moles/volume] in Serum or PlasmaOrdered By: Vinay Bunting on 01-16-2023 Potassium [Moles/Vol] 4.0 mmol/L 3.5-5.1 [facility] Protein [Mass/volume] in Ser um or PlasmaOrdered By: Vinay Bunting on 01-16-2023 Protein [Mass/Vol] 5.9 g/dL 6.1-7.9 [facility] RBC Auto (Bld) [#/Vol]Ordere d By: Vinay Bunting on 01-16-2023 RBC (Bld) [#/Vol] 3.69 10*6/uL 3.60-5.00 [facility] Serum or plasma alanine stubbs otransferase measurement without P-5'-P (enzymatic activiOrdered By: Vinay Bunting on 01-16-2023 ALT No additional P-5'-P [Catalytic activity/Vol] 26 U/L 10-60 [facility] Serum or plasma albumin/glob ulin mass ratioOrdered By: Vinay Bunting on 01-16-2023 Albumin/Globulin [Mass ratio] 1.6 {ratio} [facility] Serum or plasma anion gap de terminationOrdered By: Vinay Bunting on 01-16-2023 Anion gap [Moles/Vol] 16.0 mmol/L 6.0-15.0 [facility] Serum or plasma high density lipoprotein (HDL) cholesterol measurementOrdered By: Vinay Matta on 01-16-2023 Cholesterol in HDL [Mass/Vol] 34 mg/dL 35-85 [facility] Comment on above: HDL CHOL ATP-III CLA SSIFICATION Cardiovascular RiskHDL > or equal to 60 mg/dL LOWHDL < 40 mg/dL HIGH Serum or plasma total choles terol/high density lipoprotein (HDL) cholesterol mass ratOrdered By: Vinay Matta on 01-16-2023 Cholesterol.total/Chol esterol in HDL [Mass ratio] 3.8 {ratio} <5.0 [facility] Sodium [Moles/volume] in Ser um or PlasmaOrdered By: Vinay Matta on 01-16-2023 Sodium [Moles/Vol] 141 mmol/L 136-146 [facility] Triglyceride [Mass/volume] i n Serum or PlasmaOrdered By: Vinay Matta on 01-16-2023 Triglyceride [Mass/Vol] 109 mg/dL 35-149 [facility] Comment on above: TRIG ATP III CLASSIF ICATIONTRIG less than 150 mg/dL NormalTRIG 150-199 mg/dL Borderline highTRIG 200-500 mg/dL High TRIG greater than 500 mg/dL Very highStandard traceable to the Center for Disease Conrtrol and Prevention (CDC) test method. Urate [Mass/volume] in Serum or PlasmaOrdered By: Vinay Matta on 01-16-2023 Urate [Mass/Vol] 5.7 mg/dL 2.6-7.2 [facility] Urea nitrogen [Mass/volume] in Serum or PlasmaOrdered By: Vinay Bunhomer on 01-16-2023 Urea nitrogen [Mass/Vol] 42 mg/dL 9-23 [facility] WBC Auto (Bld) [#/Vol]Ordere d By: Vinay Matta on 01-16-2023 WBC (Bld) [#/Vol] 5.7 10*3/uL 3.8-11.6 [facility] Glucose Glucometer (BldC) [M ass/Vol]Ordered By: Rafael Edouard on 12-29-2022 Glucose [Mass/Vol] 165 mg/dL [facility] Comment on above: Random Glucose Refer ence Range is dependent on time and content of last meal. Glucose of more than 200 mg/dL in a nonstressed, ambulatory subject supports the diagnosis of Diabetes Mellitus. CBC W Auto Differential pane l (Bld)on 10-01-2022 Basophils (Bld) [#/Vol] <0.11 k/uL [facility] Basophils/100 WBC (Bld) 0.4 % [facility] Differential cell count method Nom (Bld) Auto [facility] Eosinophils (Bld) [#/Vol] 0.12 10*3/uL <0.46 k/uL [facility] Eosinophils/100 WBC (Bld) 2.2 % [facility] Erythrocyte distribution width (RBC) [Ratio] 16.9 % High 11.5 - 15.0 % [facility] Hematocrit (Bld) [Volume fraction] 27.7 % Low 36.0 - 46.0 % [facility] Hemoglobin (Bld) [Mass/Vol] 8.5 g/dL Low 11.5 - 15.5 g/dL [facility] Immature granulocytes (Bld) [#/Vol] <0.10 k/uL [facility] Immature granulocytes/100 WBC (Bld) 0.2 % [facility] Lymphocytes (Bld) [#/Vol] 1.07 10*3/uL 1.00 - 4.00 k/uL [facility] Lymphocytes/100 WBC (Bld) 19.6 % [facility] MCH (RBC) [Entitic mass] 25.3 pg Low 26.0 - 34.0 pg [facility] MCHC (RBC) [Mass/Vol] 30.7 g/dL 30.5 - 36.0 g/dL [facility] MCV (RBC) [Entitic vol] 82.4 fL 80.0 - 100.0 fL [facility] Monocytes (Bld) [#/Vol] 0.25 10*3/uL <0.87 k/uL [facility] Monocytes/100 WBC (Bld) 4.6 % [facility] Neutrophils (Bld) [#/Vol] 3.99 10*3/uL 1.45 - 7.50 k/uL [facility] Neutrophils/100 WBC (Bld) 73.0 % [facility] Nucleated RBC (Bld) [#/Vol] <0.01 k/uL [facility] Nucleated RBC/100 WBC (Bld) [Ratio] 0.0 /100 WBC [facility] Platelet mean volume (Bld) [Entitic vol] 9.4 fL 9.0 - 12.7 fL [facility] Platelets (Bld) [#/Vol] 170 10*3/uL 150 - 400 k/uL [facility] RBC (Bld) [#/Vol] 3.36 10*6/uL Low 3.90 - 5.20 m/uL [facility] WBC (Bld) [#/Vol] 5.46 10*3/uL 3.70 - 11.00 k/uL [facility] Comprehensive metabolic 2000 panelon 10-01-2022 Albumin [Mass/Vol] 4.3 g/dL 3.9 - 4.9 g/dL [facility] ALP [Catalytic activity/Vol] 120 U/L 34 - 123 U/L [facility] ALT [Catalytic activity/Vol] 20 U/L 7 - 38 U/L [facility] Anion gap [Moles/Vol] 12 mmol/L 9 - 18 mmol/L [facility] AST [Catalytic activity/Vol] 28 U/L 13 - 35 U/L [facility] Bilirubin [Mass/Vol] 0.2 mg/dL 0.2 - 1 .3 mg/dL [facility] Calcium [Mass/Vol] 8.8 mg/dL 8.5 - 10. 2 mg/dL [facility] Chloride [Moles/Vol] 109 mmol/L High 97 - 10 5 mmol/L [facility] CO2 [Moles/Vol] 27 mmol/L 22 - 30 mmol/L [facility] Creatinine [Mass/Vol] 1.34 mg/dL High 0.58 - 0.96 mg/dL [facility] Estimated Glomerular Filtration Rate 42 mL/min/1.73m Low >=60 mL/min/1.7 3m [facility] Glucose [Mass/Vol] 191 mg/dL High 74 - 99 mg/dL [facility] Potassium [Moles/Vol] 3.7 mmol/L 3.7 - 5.1 mmol/L [facility] Protein [Mass/Vol] 6.8 g/dL 6.3 - 8.0 g/dL [facility] Sodium [Moles/Vol] 148 mmol/L High 136 - 144 mmol/L [facility] Urea nitrogen [Mass/Vol] 35 mg/dL High 7 - 21 mg/dL [facility] LD LACTATE DEHYDROon 022 LDH [Catalytic activity/Vol] 163 U/L 135 - 214 U/L [facility] RETIC COUNTon 10-01-2022 Reticulocytes (Bld) [#/Vol] 0.00259 10*3/uL 0.018 - 0.100 M/uL [facility] Reticulocytes (Bld) [#/Vol]o n 10-01-2022 Reticulocytes/100 RBC (Bld) 2.8 % High 0.4 - 2.0 % [facility] HEMATOLOGYOrdered By: SYSTEM SYSTEM on 09-19-2022 Basophils/100 WBC (Bld) 0.3 % Normal 0.0 - 2.0 % [facility] Basophils/Leukocytes Auto (Bld) [Pure # fraction] [...] 18.3 % High 10.9 - 14.2 % [facility] Hematocrit (Bld) [Volume fraction] 27.6 % Low 34.0 - 46.0 % [facility] Hemoglobin (Bld) [Mass/Vol] 9.1 g/dL Low 12.0 - 16.0 gm/dL [facility] MCH (RBC) [Entitic mass] 25.6 pg Low 27.0 - 34.0 pg [facility] MCHC (RBC) [Mass/Vol] 33.1 g/dL Normal 31.4 - 36.0 gm/dL [facility] MCV (RBC) [Entitic vol] 77.5 fL Low 80.0 - 100.0 fL [facility] Platelet mean volume (Bld) [Entitic vol] 7.2 fL Normal 6.4 - 10.8 fL [facility] Platelets (Bld) [#/Vol] 189.0 E9/L Normal 150.0 - 500.0 E9/L [facility] RBC (Bld) [#/Vol] 3.6 E12/L Low 4.3 - 5.9 E12/L [facility] WBC corrected for nucl RBC Auto (Bld) [#/Vol] 6.1 E9/L Normal 4.0 - 11.0 E9/L [facility] BNPon 09-09-2022 Natriuretic peptide B (Bld) [Mass/Vol] 146.0 pg/mL Normal <=900.0 [facility] Comment on above: Performed By: #### B BUSINESS TRANSFORMATION MANAGER #### [facility] [address] [place] [address] Dr. Anamika Varghese CBC AUTO DIFFon 09-09-2022 BASO # 0.0 103/ul Normal 0.0-0.1 [facility] Comment on above: Performed By: #### C BC #### [facility] [address] [place] [address] Dr. Anamika Varghese Basophils/100 WBC (Bld) 0.4 % Normal 0.2-2.0 [facility] Comment on above: Performed By: #### C BC #### [facility] [address] [place] [address] Dr. Anamika Varghese EO # 0.2 103/ul Normal 0.0-0.7 [facility] Comment on above: Performed By: #### C BC #### [facility] [address] [place] [address] Dr. Anamika Varghese Eosinophils/100 WBC (Bld) 3.6 % Normal 0.9-7.0 [facility] Comment on above: Performed By: #### C BC #### [facility] [address] [place] [address] Dr. Anamika Varghese Erythrocyte distribution width (RBC) [Ratio] 16.4 % Critically high 11.0-15.0 [facility] Comment on above: Performed By: #### C BC #### [facility] [address] [place] [address] Dr. Anamika Varghese Hematocrit (Bld) [Volume fraction] 28.9 % Critically low 36.0-48.0 [facility] Comment on above: Performed By: #### C BC #### [facility] [address] [place] [address] Dr. Anamika Varghese Hemoglobin (Bld) [Mass/Vol] 9.0 g/dL Critically low 12.0-16.0 [facility] Comment on above: Performed By: #### C BC #### [facility] [address] [place] [address] Dr. Anamika Varghese IG # 0.02 10e3/ul Normal 0.00-0.03 [facility] Comment on above: Performed By: #### C BC #### [facility] [address] [place] [address] Dr. Anamika Varghese IG % 0.3 % Normal 0.0-0.5 [facility] Comment on above: Performed By: #### C BC #### [facility] [address] [place] [address] Dr. Anamika Varghese LYMPH # 1.8 103/ul Normal 1.2-3.8 [facility] Comment on above: Performed By: #### C BC #### [facility] [address] [place] [address] Dr. Anamika Varghese Lymphocytes/100 WBC (Bld) 26.1 % Normal 20.5-60.0 [facility] Comment on above: Performed By: #### C BC #### [facility] [address] [place] [address] Dr. Anamika Varghese MANUAL DIFF REQ NO Normal [facility] Comment on above: Performed By: #### C BC #### [facility] [address] [place] [address] Dr. Anamika Varghese MCH (RBC) [Entitic mass] 25.8 pg Critically low 26.7-34.0 [facility] Comment on above: Performed By: #### C BC #### [facility] [address] [place] [address] Dr. Anamika Varghese MCHC (RBC) [Mass/Vol] 31.1 g/dL Normal 29.9-35.2 [facility] Comment on above: Performed By: #### C BC #### [facility] [address] [place] [address] Dr. Anamika Varghese MCV (RBC) [Entitic vol] 82.8 fL Normal 81.0-99.0 [facility] Comment on above: Performed By: #### C BC #### [facility] [address] [place] [address] Dr. Anamika Varghese MONO # 0.3 103/ul Normal 0.3-0.8 [facility] Comment on above: Performed By: #### C BC #### [facility] [address] [place] [address] Dr. Anamika Varghese Monocytes/100 WBC (Bld) 5.0 % Normal 1.7-12.0 [facility] Comment on above: Performed By: #### C BC #### [facility] [address] [place] [address] Dr. Anamika Varghese NEUT # 4.4 103/ul Normal 1.4-6.5 [facility] Comment on above: Performed By: #### C BC #### [facility] [address] [place] [address] Dr. Anamika Varghese Neutrophils/100 WBC (Bld) 64.6 % Normal 43.0-75.0 [facility] Comment on above: Performed By: #### C BC #### [facility] [address] [address] [address] Anamika Varghese Platelet mean volume (Bld) [Entitic vol] 8.7 fL Critically low 9.5-13.5 [facility] Comment on above: Performed By: #### C BC #### [facility] [address] [place] [address] Dr. Anamika Varghese PLT 188 103/ul Normal 150-450 [facility] Comment on above: Performed By: #### C BC #### [facility] [address] [place] [address] Dr. Anamika Varghese RBC 3.49 106/ul Critically low 4.20-5.40 [facility] Comment on above: Performed By: #### C BC #### [facility] [address] [place] [address] Dr. Anamika Varghese WBC 6.7 103/ul Normal 4.0-11.0 [facility] Comment on above: Performed By: #### C BC #### [facility] [address] [place] [address] Dr. Anamika Varghese GLYCOHEMOGLOBIN A1Con 2021 ADA RECOMMENDATION SEE BELOW Normal [facility] Comment on above: Result Comment: ADA RECOMMENDED LIMIT 4.0 - 6.0 ADA THERAPEUTIC TARGET < 7.0 ACTION SUGGESTED > 7.0 Performed By: #### F ETIBC FERR, B12FOL #### [facility] [address] [place] [address] Dr. Anamika Varghese Glucose [Mass/Vol] 166 mg/dL Normal [facility] Comment on above: Performed By: #### F ETIBC FERR, B12FOL #### [facility] [address] [place] [address] Dr. Anamika Varghese HbA1c (Bld) [Mass fraction] 7.4 % Critically high 4.5-6.2 [facility] Comment on above: Performed By: #### F ETIBC FERR, B12FOL #### [facility] [address] [place] [address] Dr. Anamika Varghese LIPID PROFILEon 09-09-2022 CHOL-HDL RATIO NORM SEE BELOW Normal [facility] Comment on above: Result Comment: 3.3 - 4.4 LOW RISK 4.4 - 7.1 AVERAGE RISK 7.1 - 11.0 MODERATE RISK >11.0 HIGH RISK Performed By: #### L IPID, CMP #### [facility] [address] [address] [address] Anamika Varghese Cholesterol [Mass/Vol] 118 mg/dL Normal <=200 [facility] Comment on above: Performed By: #### L IPID, CMP #### [facility] [address] [place] [address] Dr. Anamika Varghese Cholesterol in HDL [Mass/Vol] 41 mg/dL Normal 40-60 [facility] Comment on above: Performed By: #### L IPID, CMP #### [facility] [address] [place] [address] Dr. Anamika Varghese Cholesterol in LDL [Mass/Vol] 60.4 mg/dL Normal [facility] Comment on above: Performed By: #### L IPID, CMP #### [facility] [address] [place] [address] Dr. Anamika Varghese Cholesterol.total/Chol esterol in HDL [Mass ratio] 2.9 {ratio} Normal [facility] Comment on above: Performed By: #### L IPID, CMP #### [facility] [address] [place] [address] Dr. Anamika Varghese HDL NORMAL > or = 60 mg/dl - LO W CARDIOVASCULAR RISK <40 mg/dl - HIGH CARDIOVASCULAR RISK Normal [facility] Comment on above: Performed By: #### L IPID, CMP #### [facility] [address] [place] [address] Dr. Anamika Varghese LDL CALC NORMAL SEE BELOW Normal [facility] Comment on above: Result Comment: <100 mg/dl OPTIMAL 100 - 129 mg/dl NEAR OR ABOVE OPTIMAL 130 - 159 mg/dl BORDERLINE HIGH 160 - 189 mg/dl HIGH >190 mg/dl VERY HIGH Performed By: #### L IPID, CMP #### [facility] [address] [address] [address] Anamika Varghese Triglyceride [Mass/Vol] 83 mg/dL Normal <=150 [facility] Comment on above: Performed By: #### L IPID, CMP #### [facility] [address] [address] [address] Anamika Varghese VLDL CALC 16.6 mg/dL Normal [facility] Comment on above: Performed By: #### L IPID, CMP #### [facility] [address] [address] [address] Anamika Varghese MICROALB CREAT RATIO RANDOMo n 09-09-2022 mALB <1.3 Normal <=30.0 [facility] Comment on above: Performed By: #### F ETIBC, FERR, B12FOL #### [facility] [address] [place] [address] Dr. Anamika Varghese MALB CR RATIO 22.0 mg/g Normal 0.0-29.9 [facility] Comment on above: Performed By: #### F ETIBC, FERR, B12FOL #### [facility] [address] [address] [address] Anamika Varghese MALB CR RATIO RANGE SEE BELOW Normal [facility] Comment on above: Result Comment: NO M ICROALBUMINURIA 0-29 MG/G CLINICAL MICROALBUMINURIA 30-300 MG/G MACROALBUMINURIA >300 MG/G Performed By: #### F ETIBC, FERR, B12FOL #### [facility] [address] [address] [address] Anamika Varghese URINE CREAT 59.04 mg/dL Normal 20.00-300. 00 [facility] Comment on above: Performed By: #### F ETIBC, FERR, B12FOL #### [facility] [address] [place] [address] Dr. Anamika Varghese PROF 14(COMP METB)on 022 Albumin [Mass/Vol] 3.6 g/dL Normal 3.4-5.0 [facility] Comment on above: Performed By: #### L IPID, CMP #### [facility] [address] [address] [address] Anamika Varghese Albumin/Globulin [Mass ratio] 1.0 {ratio} Normal [facility] Comment on above: Performed By: #### L IPID, CMP #### [facility] [address] [address] [address] Anamika Varghese ALP [Catalytic activity/Vol] 128 U/L Critically high 46-116 [facility] Comment on above: Performed By: #### L IPID, CMP #### [facility] [address] [address] [address] Anamika Varghese ALT [Catalytic activity/Vol] 30 U/L Normal 14-59 [facility] Comment on above: Performed By: #### L IPID, CMP #### [facility] [address] [address] [address] Anamika Varghese Anion gap [Moles/Vol] 14.9 mmol/L Normal [facility] Comment on above: Performed By: #### L IPID, CMP #### [facility] [address] [address] [address] Anamika Varghese AST [Catalytic activity/Vol] 23 U/L Normal 15-37 [facility] Comment on above: Performed By: #### L IPID, CMP #### [facility] [address] [address] [address] Anamika Varghese Bilirubin [Mass/Vol] 0.3 mg/dL Normal 0.2-1.0 [facility] Comment on above: Performed By: #### L IPID, CMP #### [facility] [address] [address] [address] Anamika Varghese Calcium [Mass/Vol] 8.6 mg/dL Normal 8.5-10.1 [facility] Comment on above: Performed By: #### L IPID, CMP #### [facility] [address] [address] [address] Anamika Varghese Chloride [Moles/Vol] 105 mmol/L Normal 98-107 [facility] Comment on above: Performed By: #### L IPID, CMP #### [facility] [address] [address] [address] Anamika Varghese CO2 [Moles/Vol] 28.1 mmol/L Normal 21.0-32.0 [facility] Comment on above: Performed By: #### L IPID, CMP #### [facility] [address] [address] [address] Anamika Varghese Creatinine [Mass/Vol] 1.58 mg/dL Critically high 0.55-1.02 [facility] Comment on above: Performed By: #### L IPID, CMP #### [facility] [address] [address] [address] Anamika Varghese EGFR-AF BELIZEAN 39 mL/min/1.73m2 Critically low >=60 [facility] Comment on above: Performed By: #### L IPID, CMP #### [facility] [address] [place] [address] Dr. Anamika Varghese EGFR-NON AF BELIZEAN 32 mL/min/1.73m2 Critically low >=60 [facility] Comment on above: Performed By: #### L IPID, CMP #### [facility] [address] [place] [address] Dr. Anamika Varghese Globulin (S) [Mass/Vol] 3.6 g/dL Normal [facility] Comment on above: Performed By: #### L IPID, CMP #### [facility] [address] [place] [address] Dr. Anamika Varghese Glucose [Mass/Vol] 130 mg/dL Critically high 74-106 [facility] Comment on above: Performed By: #### L IPID, CMP #### [facility] [address] [place] [address] Dr. Anamika Varghese Potassium [Moles/Vol] 4.0 mmol/L Normal 3.5-5.1 [facility] Comment on above: Performed By: #### L IPID, CMP #### [facility] [address] [place] [address] Dr. Anamika Varghese Protein [Mass/Vol] 7.2 g/dL Normal 6.4-8.2 [facility] Comment on above: Performed By: #### L IPID, CMP #### [facility] [address] [address] [address] Anamika Varghese Sodium [Moles/Vol] 144 mmol/L Normal 136-145 [facility] Comment on above: Performed By: #### L IPID, CMP #### [facility] [address] [address] [address] Anamika Varghese Urea nitrogen [Mass/Vol] 53.0 mg/dL Critically high 7.0-18.0 [facility] Comment on above: Performed By: #### L IPID, CMP #### [facility] [address] [address] [address] Anamika Varghese Urea nitrogen/Creatinine [Mass ratio] 33.5 mg/mg Normal [facility] Comment on above: Performed By: #### L IPID, CMP #### [facility] [address] [address] [address] Anamika Varghese Creatinine and Glomerular fi ltration rate.predicted panel (S/P/Bld)Ordered By: Anand Yusuf on 07-24-2022 Creatinine [Mass/Vol] 1.41 mg/dL 0.44-1.03 [facility] Estimated glomerular filtrat ion rate (GFR) non- AmericanOrdered By: Anand Yusuf on 07-24-2022 GFR/1.73 sq M.predicted among non-blacks MDRD (S/P/Bld) [Vol rate/Area] 37 mL/Min [facility] No Panel InformationOrdered By: Anand Yusuf on 07-24-2022 Estimated GFR () 44 mL/Min [facility] Comment on above: GFR estimated refere nce range: According to KDOQI guidelines, <60 ml/min/1.73m2 is sufficient to diagnose a patient with chronic kidney disease. Pharmacy Creatinine Clearance (Chem N/A [facility] Serum or plasma anion gap de terminationOrdered By: Anand Yusuf on 07-24-2022 Anion gap [Moles/Vol] 17.5 mmol/L 6.0-15.0 [facility] Serum or plasma calcium emperatriz urement (mass/volume)Ordered By: Anand Yusuf on 07-24-2022 Calcium [Mass/Vol] 8.5 mg/dL 8.2-10.2 [facility] Serum or plasma chloride edvin surement (moles/volume)Ordered By: Anand Yusuf on 07-24-2022 Chloride [Moles/Vol] 105 mmol/L 95-114 [facility] Serum or plasma glucose emperatriz urement (mass/volume)Ordered By: Anand Yusuf on 07-24-2022 Glucose [Mass/Vol] 97 mg/dL 70-100 [facility] Comment on above: ADA recommended refe rence [...] on 07-24-2022 Potassium [Moles/Vol] 4.3 mmol/L 3.5-5.1 [facility] Serum or plasma sodium measu rement (moles/volume)Ordered By: Anand Yusuf on 07-24-2022 Sodium [Moles/Vol] 141 mmol/L 136-146 [facility] Serum or plasma total carbon dioxide measurement (moles/volume)Ordered By: Anand Yusuf on 07-24-2022 CO2 [Moles/Vol] 22.8 mmol/L 22.0-30.0 [facility] Serum or plasma urea nitroge n measurement (mass/volume)Ordered By: Anand Yusuf on 07-24-2022 Urea nitrogen [Mass/Vol] 37 mg/dL 9-23 [facility] Urine culture routineOrdered By: Anand Yusuf on 07-24-2022 Bacteria identified Cx Nom (U) Escherichia coli [facility] Automated erythrocytes count in urine sediment (number/area)Ordered By: Anand Yusuf on 07-22-2022 RBC Auto (Urine sed) [#/Area] 0-1 [HPF] 0-4 [facility] Automated leukocytes count i n urine sediment (number/area)Ordered By: Anand Yusuf on 07-22-2022 WBC Auto (Urine sed) [#/Area] 5-9 [HPF] 0-4 [facility] Basophils Auto (Bld) [#/Vol] Ordered By: Anand Yusuf on 07-22-2022 Basophils (Bld) [#/Vol] 0.1 10*3/uL 0.0-0.2 [facility] Basophils/100 WBC Auto (Bld) Ordered By: Anand Yusuf on 07-22-2022 Basophils/100 WBC (Bld) 0.5 % . [facility] Bilirubin Test strip Ql (U)O rdered By: Anand Yusuf on 07-22-2022 Bilirubin Ql (U) Negative Negative [facility] Blood hemoglobin measurement (mass/volume)Ordered By: Anand Yusuf on 07-22-2022 Hemoglobin (Bld) [Mass/Vol] 9.6 g/dL 11.8-15.4 [facility] Blood leukocytes automated c ount (number/volume)Ordered By: Anand Yusuf on 07-22-2022 WBC (Bld) [#/Vol] 11.6 10*3/uL 4.5-11.0 [facility] Body fluid albumin measureme nt (mass/volume)Ordered By: Anand Yusuf on 07-22-2022 Albumin (Body fld) [Mass/Vol] 3.0 g/dL 3.2-5.5 [facility] Color Auto (U)Ordered By: Primo Yusuf on 07-22-2022 Color (U) Yellow Yellow [facility] Creatinine and Glomerular fi ltration rate.predicted panel (S/P/Bld)Ordered By: Anand Yusuf on 07-22-2022 Creatinine [Mass/Vol] 1.63 mg/dL 0.44-1.03 [facility] Eosinophils Auto (Bld) [#/Vo l]Ordered By: Anand Yusuf on 07-22-2022 Eosinophils (Bld) [#/Vol] 0.1 10*3/uL 0.0-0.45 [facility] Eosinophils/100 WBC Auto (Bl d)Ordered By: Anand Yusuf on 07-22-2022 Eosinophils/100 WBC (Bld) 1.0 % . [facility] Erythrocyte distribution wid th Auto (RBC) [Ratio]Ordered By: Anand Yusuf on 07-22-2022 Erythrocyte distribution width (RBC) [Ratio] 17.0 % 11.9-15.3 [facility] Estimated glomerular filtrat ion rate (GFR) non- AmericanOrdered By: Anand Yusuf on 07-22-2022 GFR/1.73 sq M.predicted among non-blacks MDRD (S/P/Bld) [Vol rate/Area] 31 mL/Min [facility] Globulin Calc (S) [Mass/Vol] Ordered By: Anand Yusuf on 07-22-2022 Globulin (S) [Mass/Vol] 3.3 g/dL [facility] Hematocrit Auto (Bld) [Volum e fraction]Ordered By: Anand Yusuf on 07-22-2022 Hematocrit (Bld) [Volume fraction] 28.6 % 34.0-46.4 [facility] Ketones Auto test strip (U) [Mass/Vol]Ordered By: Anand Yusuf on 07-22-2022 Ketones (U) [Mass/Vol] Trace Negative Fi relaFormerly [facility] - Chemistry and C hemistry - challengeOrdered By: Anand Yusuf on 07-22-2022 Magnesium [Mass/Vol] 1.4 mg/dL 1.6-2.6 [facility] Natriuretic peptide B (Bld) [Mass/Vol] 44.0 pg/mL 5-100 [facility] - Hematology and Cell countsOrdered By: Anand Yusuf on 07-22-2022 Nucleated RBC/100 WBC (Bld) [Ratio] 0.0 % 0-0.5 [facility] - UrinalysisOrder ed By: Anand Yusuf on 07-22-2022 Hyaline casts LM Ql (Urine sed) 0-8 [LPF] 0-8 [facility] Lymphocytes Auto (Bld) [#/Vo l]Ordered By: Anand Yusuf on 07-22-2022 Lymphocytes (Bld) [#/Vol] 1.5 10*3/uL 1.00-4.8 [facility] Lymphocytes/100 WBC Auto (Bl d)Ordered By: Anand Yusuf on 07-22-2022 Lymphocytes/100 WBC (Bld) 13.0 % . [facility] MCH Auto (RBC) [Entitic mass ]Ordered By: Anand Yusuf on 07-22-2022 MCH (RBC) [Entitic mass] 27.3 pg 24.7-34.3 [facility] MCHC Auto (RBC) [Mass/Vol]Or dered By: Anand Yusuf on 07-22-2022 MCHC (RBC) [Mass/Vol] 33.5 g/dL 32.0-35.0 [facility] MCV Auto (RBC) [Entitic vol] Ordered By: Anand Yusuf on 07-22-2022 MCV (RBC) [Entitic vol] 81.3 fL 80-100 [facility] Monocytes Auto (Bld) [#/Vol] Ordered By: Anand Yusuf on 07-22-2022 Monocytes (Bld) [#/Vol] 0.5 10*3/uL 0.0-0.8 [facility] Monocytes/100 WBC Auto (Bld) Ordered By: Anand Yusuf on 07-22-2022 Monocytes/100 WBC (Bld) 4.1 % . [facility] Neutrophils Auto (Bld) [#/Vo l]Ordered By: Anand Yusuf on 07-22-2022 Neutrophils (Bld) [#/Vol] 9.5 10*3/uL 1.8-7.7 [facility] Neutrophils/100 WBC Auto (Bl d)Ordered By: Anand Yusuf on 07-22-2022 Neutrophils/100 WBC (Bld) 81.4 % . [facility] Nitrite Test strip Ql (U)Ord ered By: Anand Yusuf on 07-22-2022 Nitrite Ql (U) Negative Negative [facility] No Panel InformationOrdered By: Anand Yusuf on 07-22-2022 Estimated GFR () 37 mL/Min [facility] Comment on above: GFR estimated refere nce range: According to KDOQI guidelines, <60 ml/min/1.73m2 is sufficient to diagnose a patient with chronic kidney disease. Pharmacy Creatinine Clearance (Chem 34.96 [facility] Platelet mean volume Auto (B ld) [Entitic vol]Ordered By: Anand Yusuf on 07-22-2022 Platelet mean volume (Bld) [Entitic vol] 7.3 fL 6.3-10.7 [facility] Platelets Auto (Bld) [#/Vol] Ordered By: Anand Yusuf on 07-22-2022 Platelets (Bld) [#/Vol] 253 10*3/uL 150-450 [facility] Protein Auto test strip (U) [Mass/Vol]Ordered By: Anand Yusuf on 07-22-2022 Protein (U) [Mass/Vol] Negative Negative [facility] Protein [Mass/volume] in Ser um or PlasmaOrdered By: Anand Yusuf on 07-22-2022 Protein [Mass/Vol] 6.3 g/dL 6.1-7.9 [facility] RBC Auto (Bld) [#/Vol]Ordere d By: Anand Yusuf on 07-22-2022 RBC (Bld) [#/Vol] 3.51 10*6/uL 3.60-5.00 [facility] Serum or plasma alanine stubbs otransferase measurement without P-5'-P (enzymatic activiOrdered By: Anand Yusuf on 07-22-2022 ALT No additional P-5'-P [Catalytic activity/Vol] 29 U/L 10-60 [facility] Serum or plasma albumin/glob ulin mass ratioOrdered By: Anand Yusuf on 07-22-2022 Albumin/Globulin [Mass ratio] 0.9 {ratio} [facility] Serum or plasma alkaline lorie sphatase measurement (enzymatic activity/volume)Ordered By: Anand Yusuf on 07-22-2022 ALP [Catalytic activity/Vol] 99 U/L 32-92 [facility] Serum or plasma anion gap de terminationOrdered By: Anand Yusuf on 07-22-2022 Anion gap [Moles/Vol] 14.3 mmol/L 6.0-15.0 [facility] Serum or plasma aspartate am inotransferase measurement (enzymatic activity/volume)Ordered By: Anand Yusuf on 07-22-2022 AST [Catalytic activity/Vol] 31 U/L 10-42 [facility] Serum or plasma calcium emperatriz urement (mass/volume)Ordered By: Anand Yusuf on 07-22-2022 Calcium [Mass/Vol] 9.0 mg/dL 8.2-10.2 [facility] Serum or plasma chloride edvin surement (moles/volume)Ordered By: Anand Yusuf on 07-22-2022 Chloride [Moles/Vol] 107 mmol/L 95-114 [facility] Serum or plasma glucose emperatriz urement (mass/volume)Ordered By: Anand Yusuf on 07-22-2022 Glucose [Mass/Vol] 168 mg/dL 70-100 [facility] Comment on above: ADA recommended refe rence [...] on 07-22-2022 Potassium [Moles/Vol] 5.4 mmol/L 3.5-5.1 [facility] Serum or plasma sodium measu rement (moles/volume)Ordered By: Anand Yusuf on 07-22-2022 Sodium [Moles/Vol] 140 mmol/L 136-146 [facility] Serum or plasma total biliru bin measurement (mass/volume)Ordered By: Anand Yusuf on 07-22-2022 Bilirubin [Mass/Vol] 0.6 mg/dL 0.3-1.2 [facility] Serum or plasma total carbon dioxide measurement (moles/volume)Ordered By: Anand Yusuf on 07-22-2022 CO2 [Moles/Vol] 24.1 mmol/L 22.0-30.0 [facility] Serum or plasma urea nitroge n measurement (mass/volume)Ordered By: Anand Yusuf on 07-22-2022 Urea nitrogen [Mass/Vol] 53 mg/dL 9-23 [facility] Specific gravity Auto test s trip (U) [Rel density]Ordered By: Anand Yusuf on 07-22-2022 Specific gravity (U) [Rel density] 1.019 1.001-1.03 0 [facility] Squamous epithelial cells de tection in urine sediment by light microscopyOrdered By: Anand Yusuf on 07-22-2022 Epithelial cells.squamous LM Ql (Urine sed) 1-2 [HPF] 0-2 [facility] Troponin I.cardiac [Mass/vol ume] in Serum or Plasma by High sensitivity methodOrdered By: Anand Yusuf on 07-22-2022 Troponin I.cardiac High sensitivity method [Mass/Vol] 4 pg/mL 0-15 [facility] Urine bacteria detection by automated methodOrdered By: Anand Yusuf on 07-22-2022 Bacteria Auto Ql (U) 4+ None Seen [facility] Urine clarity by refractomet ry automatedOrdered By: Anand Yusuf on 07-22-2022 Clarity Refractometry automated (U) Cloudy Clear [facility] Urine glucose measurement by automated test strip (mass/volume)Ordered By: Anand Yusuf on 07-22-2022 Glucose Auto test strip (U) [Mass/Vol] Normal mg/dL Normal [facility] Urine hemoglobin detection b y automated test stripOrdered By: Anand Yusuf on 07-22-2022 Hemoglobin Auto test strip Ql (U) Negative Negative [facility] Urine lactic acid measuremen tOrdered By: Anand Yusuf on 07-22-2022 Lactate (U) [Moles/Vol] 1.9 mmol/L 0.5-2.2 [facility] Urine leukocyte esterase det ection by automated test stripOrdered By: Anand Yusuf on 07-22-2022 Leukocyte esterase Auto test strip Ql (U) 2+ Negative [facility] Urobilinogen Auto test strip (U) [Mass/Vol]Ordered By: Anand Yusuf on 07-22-2022 Urobilinogen (U) [Mass/Vol] Normal mg/dL Normal [facility] pH Auto test strip (U)Ordere d By: Anand Yusuf on 07-22-2022 pH (U) 5.0 [pH] 5.0-9.0 [facility] FERRITINon 06-24-2022 Ferritin [Mass/Vol] 39.0 ng/mL Normal 8.0-252.0 [facility] Comment on above: Performed By: #### F ETIBC, FERR, B12FOL #### [facility] [address] [place] [address] Dr. Anamika Varghese IRON AND TIBCon 06-24-2022 % SATURATION 13.1 % Normal [facility] Comment on above: Performed By: #### F ETIBC, FERR, B12FOL #### [facility] [address] [place] [address] Dr. Anamika Varghese Iron [Mass/Vol] 52.0 ug/dL Normal 50.0-170.0 [facility] Comment on above: Performed By: #### F ETIBC, FERR, B12FOL #### [facility] [address] [place] [address] Dr. Anamika Varghese TIBC DIRECT 397.0 ug/dL Normal 250.0-450. 0 [facility] Comment on above: Performed By: #### F ETIBC, FERR, B12FOL #### [facility] [address] [place] [address] Dr. Anamika Varghese LIVER PROFILEon 06-24-2022 Albumin [Mass/Vol] 3.5 g/dL Normal 3.4-5.0 [facility] Comment on above: Performed By: #### L IVER #### [facility] [address] [place] [address] Dr. Anamika Varghese Albumin/Globulin [Mass ratio] 1.2 {ratio} Normal [facility] Comment on above: Performed By: #### L IVER #### [facility] [address] [place] [address] Dr. Anamika Varghese ALP [Catalytic activity/Vol] 117 U/L Critically high 46-116 [facility] Comment on above: Performed By: #### L IVER #### [facility] [address] [place] [address] Dr. Anamika Varghese ALT [Catalytic activity/Vol] 30 U/L Normal 14-59 [facility] Comment on above: Performed By: #### L IVER #### [facility] [address] [place] [address] Dr. Anamika Varghese AST [Catalytic activity/Vol] 25 U/L Normal 15-37 [facility] Comment on above: Performed By: #### L IVER #### [facility] [address] [place] [address] Dr. Anamika BOWIEI, CONJUGATED 0.2 mg/dL Normal 0.0-0.2 [facility] Comment on above: Performed By: #### L IVER #### [facility] [address] [place] [address] Dr. Anamika Varghese Bilirubin [Mass/Vol] 0.4 mg/dL Normal 0.2-1.0 [facility] Comment on above: Performed By: #### L IVER #### [facility] [address] [place] [address] Dr. Anamika Varghese Globulin (S) [Mass/Vol] 3.0 g/dL Normal [facility] Comment on above: Performed By: #### L IVER #### [facility] [address] [place] [address] Dr. Anamika Varghese Protein [Mass/Vol] 6.5 g/dL Normal 6.4-8.2 [facility] Comment on above: Performed By: #### L IVER #### [facility] [address] [place] [address] Dr. Anamika Varghese RETICULOCYTEon 06-24-2022 RETIC 3.27 % Critically high 0.60-3.10 [facility] Comment on above: Performed By: #### F ETIBC, FERR, B12FOL #### [facility] [address] [place] [address] Dr. Anamika Varghese VIT B12 AND FOLATEon 022 Cobalamin (Vitamin B12) [Mass/Vol] 206.0 pg/mL Normal 193.0-986. 0 [facility] Comment on above: Performed By: #### F ETIBC, FERR, B12FOL #### [facility] [address] [place] [address] Dr. Anamika Varghese FOLATE 20.20 ng/mL Normal 8.60-58.90 [facility] Comment on above: Performed By: #### F ETIBC, FERR, B12FOL #### [facility] [address] [address] [address] Anamika Varghese Basophils Auto (Bld) [#/Vol] Ordered By: Vinay Matta on 05-21-2022 Basophils (Bld) [#/Vol] 0.0 10*3/uL 0.0-0.2 [facility] Basophils/100 WBC Auto (Bld) Ordered By: Vinay Matta on 05-21-2022 Basophils/100 WBC (Bld) 0.4 % . [facility] Blood hemoglobin measurement (mass/volume)Ordered By: Vinay Matta on 05-21-2022 Hemoglobin (Bld) [Mass/Vol] 9.7 g/dL 11.8-15.4 [facility] Blood leukocytes automated c ount (number/volume)Ordered By: Vinay Matta on 05-21-2022 WBC (Bld) [#/Vol] 3.7 10*3/uL 4.5-11.0 [facility] Body fluid albumin measureme nt (mass/volume)Ordered By: Vinay Matta on 05-21-2022 Albumin (Body fld) [Mass/Vol] 3.3 g/dL 3.2-5.5 [facility] Cholesterol [Mass/volume] in Serum or PlasmaOrdered By: Vinay Matta on 05-21-2022 Cholesterol [Mass/Vol] 122 mg/dL 140-200 [facility] Comment on above: Chol less than 200 m g/dl low risk Chol 201-239 mg/dl borderline risk Chol 240 mg/dl and greater high risk Cholesterol in LDL Calc [Mas s/Vol]Ordered By: Vinay Matta on 05-21-2022 Cholesterol in LDL [Mass/Vol] 67 mg/dL 0-100 [facility] Comment on above: LDL ATP III CLASSIFI CATION LDL less than 100 mg/dL Optimal LDL 100-129 mg/dL Near or above optimal LDL 130-159 mg/dL Borderline high LDL 160-189 mg/dL High LDL greater than 189 mg/dL Very high Cholesterol in VLDL Calc [Ma ss/Vol]Ordered By: Vinay Matta on 05-21-2022 Cholesterol in VLDL [Mass/Vol] 13 mg/dL [facility] Creatinine and Glomerular fi ltration rate.predicted panel (S/P/Bld)Ordered By: Vinay Bunhomer on 05-21-2022 Creatinine [Mass/Vol] 1.15 mg/dL 0.44-1.03 [facility] Eosinophils Auto (Bld) [#/Vo l]Ordered By: Vinay Bunting on 05-21-2022 Eosinophils (Bld) [#/Vol] 0.1 10*3/uL 0.0-0.45 [facility] Eosinophils/100 WBC Auto (Bl d)Ordered By: Vinay Bunting on 05-21-2022 Eosinophils/100 WBC (Bld) 3.1 % . [facility] Erythrocyte distribution wid th Auto (RBC) [Ratio]Ordered By: Vinay Bunting on 05-21-2022 Erythrocyte distribution width (RBC) [Ratio] 16.3 % 11.9-15.3 [facility] Erythrocyte sedimentation ra te by Photometric methodOrdered By: Vinay Bunting on 05-21-2022 ESR Photometric method (Bld) [Velocity] 9 mm/hr 0-29 [facility] Estimated glomerular filtrat ion rate (GFR) non- AmericanOrdered By: Vinay Bunhomer on 05-21-2022 GFR/1.73 sq M.predicted among non-blacks MDRD (S/P/Bld) [Vol rate/Area] 46 mL/Min [facility] Globulin Calc (S) [Mass/Vol] Ordered By: Vinay Bunhomer on 05-21-2022 Globulin (S) [Mass/Vol] 2.2 g/dL [facility] Glucose mean value [Mass/vol ume] in Blood Estimated from glycated hemoglobinOrdered By: Vinay Bunting on 05-21-2022 Average glucose Estimated from glycated hemoglobin (Bld) [Mass/Vol] 166 mg/dL [facility] Hematocrit Auto (Bld) [Volum e fraction]Ordered By: Vinay Bunting on 05-21-2022 Hematocrit (Bld) [Volume fraction] 29.1 % 34.0-46.4 [facility] Hemoglobin A1c percentageOrd ered By: Vinay Bunting on 05-21-2022 HbA1c (Bld) [Mass fraction] 7.4 % 4.3-5.6 [facility] Comment on above: Increased risk for d iabetes: 5.7 - 6.4 diabetes: >6.4 glycemic control for adults with diabetes: <7.0 Laboratory - Hematology and Cell countsOrdered By: Vinay Bunting on 05-21-2022 Nucleated RBC/100 WBC (Bld) [Ratio] 0.1 % 0-0.5 [facility] Lymphocytes Auto (Bld) [#/Vo l]Ordered By: Vinay Bunting on 05-21-2022 Lymphocytes (Bld) [#/Vol] 1.0 10*3/uL 1.00-4.8 [facility] Lymphocytes/100 WBC Auto (Bl d)Ordered By: Vinay Bunting on 05-21-2022 Lymphocytes/100 WBC (Bld) 26.3 % . [facility] MCH Auto (RBC) [Entitic mass ]Ordered By: Vinay Bunting on 05-21-2022 MCH (RBC) [Entitic mass] 28.6 pg 24.7-34.3 [facility] MCHC Auto (RBC) [Mass/Vol]Or dered By: Vinay Bunting on 05-21-2022 MCHC (RBC) [Mass/Vol] 33.5 g/dL 32.0-35.0 [facility] MCV Auto (RBC) [Entitic vol] Ordered By: Vinay Bunting on 05-21-2022 MCV (RBC) [Entitic vol] 85.5 fL 80-100 [facility] Monocytes Auto (Bld) [#/Vol] Ordered By: Vinay Bunting on 05-21-2022 Monocytes (Bld) [#/Vol] 0.2 10*3/uL 0.0-0.8 [facility] Monocytes/100 WBC Auto (Bld) Ordered By: Vinay Bunting on 05-21-2022 Monocytes/100 WBC (Bld) 6.4 % . [facility] Neutrophils Auto (Bld) [#/Vo l]Ordered By: Vinay Bunting on 05-21-2022 Neutrophils (Bld) [#/Vol] 2.4 10*3/uL 1.8-7.7 [facility] Neutrophils/100 WBC Auto (Bl d)Ordered By: Vinay Bunhomer on 05-21-2022 Neutrophils/100 WBC (Bld) 63.8 % . [facility] No Panel InformationOrdered By: Vinay Matta on 05-21-2022 Estimated GFR () 56 mL/Min [facility] Comment on above: GFR estimated refere nce range: According to KDOQI guidelines, <60 ml/min/1.73m2 is sufficient to diagnose a patient with chronic kidney disease. Pharmacy Creatinine Clearance (Chem N/A [facility] Platelet mean volume Auto (B ld) [Entitic vol]Ordered By: Vinay Bunhomer on 05-21-2022 Platelet mean volume (Bld) [Entitic vol] 7.3 fL 6.3-10.7 [facility] Platelets Auto (Bld) [#/Vol] Ordered By: Vinay Bunting on 05-21-2022 Platelets (Bld) [#/Vol] 153 10*3/uL 150-450 [facility] Protein [Mass/volume] in Ser um or PlasmaOrdered By: Vinay Bunting on 05-21-2022 Protein [Mass/Vol] 5.5 g/dL 6.1-7.9 [facility] RBC Auto (Bld) [#/Vol]Ordere d By: Vinay Bunting on 05-21-2022 RBC (Bld) [#/Vol] 3.40 10*6/uL 3.60-5.00 [facility] Serum or plasma alanine stubbs otransferase measurement without P-5'-P (enzymatic activiOrdered By: Vinay Bunting on 05-21-2022 ALT No additional P-5'-P [Catalytic activity/Vol] 28 U/L 10-60 [facility] Serum or plasma albumin/glob ulin mass ratioOrdered By: Vinay Bunting on 05-21-2022 Albumin/Globulin [Mass ratio] 1.5 {ratio} [facility] Serum or plasma alkaline lorie sphatase measurement (enzymatic activity/volume)Ordered By: Vinay Bunhomer on 05-21-2022 ALP [Catalytic activity/Vol] 96 U/L 32-92 [facility] Serum or plasma aspartate am inotransferase measurement (enzymatic activity/volume)Ordered By: Vinay Matta on 05-21-2022 AST [Catalytic activity/Vol] 30 U/L 10-42 [facility] Serum or plasma calcium emperatriz urement (mass/volume)Ordered By: Vinay Matta on 05-21-2022 Calcium [Mass/Vol] 8.5 mg/dL 8.2-10.2 [facility] Serum or plasma chloride edvin surement (moles/volume)Ordered By: Vinay Matta on 05-21-2022 Chloride [Moles/Vol] 102 mmol/L 95-114 [facility] Serum or plasma glucose emperatriz urement (mass/volume)Ordered By: Vinay Matta on 05-21-2022 Glucose [Mass/Vol] 167 mg/dL 70-100 [facility] Comment on above: ADA recommended refe rence range Random Glucose Reference Range is dependent on time and content of last meal. Glucose of more than 200 mg/dL in a nonstressed, ambulatory subject supports the diagnosis of Diabetes Mellitus. Serum or plasma high density lipoprotein (HDL) cholesterol measurementOrdered By: Vinay Matta on 05-21-2022 Cholesterol in HDL [Mass/Vol] 41 mg/dL 35-85 [facility] Comment on above: HDL CHOL ATP-III CLA SSIFICATION Cardiovascular Risk HDL > or equal to 60 mg/dL LOW HDL < 40 mg/dL HIGH Serum or plasma potassium me asurement (moles/volume)Ordered By: Vinay Matta on 05-21-2022 Potassium [Moles/Vol] 4.5 mmol/L 3.5-5.1 [facility] Serum or plasma rheumatoid f actor measurement (units/volume)Ordered By: Vinay Matta on 05-21-2022 Rheumatoid factor Qn [IU]/mL <14.0 [facility] Comment on above: Performed at: [address] [id number] Caving Guide: Darren Ashby PhD, Phone: [phone] Serum or plasma sodium measu rement (moles/volume)Ordered By: Vinay Matta on 05-21-2022 Sodium [Moles/Vol] 140 mmol/L 136-146 [facility] Serum or plasma total biliru bin measurement (mass/volume)Ordered By: Vinay Matta on 05-21-2022 Bilirubin [Mass/Vol] 0.5 mg/dL 0.3-1.2 [facility] Serum or plasma total carbon dioxide measurement (moles/volume)Ordered By: Vinay Matta on 05-21-2022 CO2 [Moles/Vol] 27.2 mmol/L 22.0-30.0 [facility] Serum or plasma total choles terol/high density lipoprotein (HDL) cholesterol mass ratOrdered By: Vinay Matta on 05-21-2022 Cholesterol.total/Chol esterol in HDL [Mass ratio] 3.0 {ratio} <5.0 [facility] Serum or plasma urea nitroge n measurement (mass/volume)Ordered By: Vinay Matta on 05-21-2022 Urea nitrogen [Mass/Vol] 24 mg/dL 9-23 [facility] Serum or plasma uric acid me asurement (mass/volume)Ordered By: Vinay Matta on 05-21-2022 Urate [Mass/Vol] 4.1 mg/dL 2.6-7.2 [facility] Triglyceride [Mass/volume] i n Serum or PlasmaOrdered By: Vinay Matta on 05-21-2022 Triglyceride [Mass/Vol] 68 mg/dL 35-149 [facility] Comment on above: TRIG ATP III CLASSIF ICATION TRIG less than 150 mg/dL Normal TRIG 150-199 mg/dL Borderline high TRIG 200-500 mg/dL High TRIG greater than 500 mg/dL Very high Standard traceable to the Center for Disease Conrtrol and Prevention (CDC) test method. Automated basophil %on 01-31 Basophils/100 WBC (Bld) 0.4 % [facility] Automated basophil counton 0 01-31-2021 Basophils (Bld) [#/Vol] 0.0 10*3/uL 0.0-0.2 [facility] Automated blood lymphocyte c ount (number/volume)on 01-31-2021 Lymphocytes (Bld) [#/Vol] 1.3 10*3/uL 1.00-4.8 [facility] Automated blood lymphocyte c ount as percentage of total leukocyteson 01-31-2021 Lymphocytes/100 WBC (Bld) 19.5 % [facility] Automated blood monocyte cou nton 01-31-2021 Monocytes (Bld) [#/Vol] 0.3 10*3/uL 0.0-0.8 [facility] Automated blood platelet cou nt (count/volume)on 01-31-2021 Platelets (Bld) [#/Vol] 158 10*3/uL 150-450 [facility] Automated blood platelet edvin n volume measurementon 01-31-2021 Platelet mean volume (Bld) [Entitic vol] 7.2 fL 6.3-10.7 [facility] Automated eosinophil %on Eosinophils/100 WBC (Bld) 3.2 % [facility] Automated eosinophil counton 01-31-2021 Eosinophils (Bld) [#/Vol] 0.2 10*3/uL 0.0-0.45 [facility] Automated erythrocyte distri bution width ratioon 01-31-2021 Erythrocyte distribution width (RBC) [Ratio] 16.8 % 11.9-15.3 [facility] Automated erythrocyte mean c orpuscular hemoglobin (mass per erythrocyte)on 01-31-2021 MCH (RBC) [Entitic mass] 29.4 pg 24.7-34.3 [facility] Automated erythrocyte mean c orpuscular hemoglobin concentration measurement (mass/volon 01-31-2021 MCHC (RBC) [Mass/Vol] 33.9 g/dL 32.0-35.[address] [facility] Automated erythrocyte mean c orpuscular volumeon 01-31-2021 MCV (RBC) [Entitic vol] 86.6 fL 80-100 [facility] Automated erythrocytes count in urine sediment (number/area)on 01-31-2021 RBC Auto (Urine sed) [#/Area] 0-1 [HPF] [facility] Automated leukocytes count i n urine sediment (number/area)on 01-31-2021 WBC Auto (Urine sed) [#/Area] 3-4 [HPF] [facility] Automated monocyte %on 01-31 Monocytes/100 WBC (Bld) 5.0 % [facility] Automated neutrophil %on Neutrophils/100 WBC (Bld) 71.9 % [facility] Automated urine color determ inationon 01-31-2021 Color (U) Yellow Yellow [facility] Blood erythrocytes automated count (number/volume)on 01-31-2021 RBC (Bld) [#/Vol] 4.01 10*6/uL 3.60-5.00 [facility] Blood hemoglobin measurement (mass/volume)on 01-31-2021 Hemoglobin (Bld) [Mass/Vol] 11.8 g/dL 11.8-15.4 [facility] Blood leukocytes automated c ount (number/volume)on 01-31-2021 WBC (Bld) [#/Vol] 6.7 10*3/uL 4.5-11.0 [facility] Blood neutrophil count by au tomated method (number/volume)on 01-31-2021 Neutrophils (Bld) [#/Vol] 4.8 10*3/uL 1.8-7.7 [facility] Body fluid albumin measureme nt (mass/volume)on 01-31-2021 Albumin (Body fld) [Mass/Vol] 3.7 g/dL 3.2-5.5 [facility] Cholesterol [Mass/volume] in Serum or Plasmaon 01-31-2021 Cholesterol [Mass/Vol] 129 mg/dL 140-[facility] on above: Chol less than 200 m g/dl low riskChol 201-239 mg/dl borderline riskChol 240 mg/dl and greater high risk Cholesterol in LDL [Mass/vol ume] in Serum or Plasma by calculationon 01-31-2021 Cholesterol in LDL [Mass/Vol] 63 mg/dL 0-100 [facility] Comment on above: LDL ATP III CLASSIFI CATIONLDL less than 100 mg/dL OptimalLDL 100-129 mg/dL Near or above optimalLDL 130-159 mg/dL Borderline highLDL 160-189 mg/dL HighLDL greater than 189 mg/dL Very high Cholesterol in VLDL [Mass/vo lume] in Serum or Plasma by calculationon 01-31-2021 Cholesterol in VLDL [Mass/Vol] 22 mg/dL [facility] Creatinine [Mass/volume] in Urineon 01-31-2021 Creatinine (U) [Mass/Vol] 127.7 mg/dL [facility] Comment on above: No reference range e stablished Estimated glomerular filtrat ion rate (GFR) non- Americanon 01-31-2021 GFR/1.73 sq M predicted among non-blacks MDRD (S/P/Bld) [Vol rate/Area] 45 mL/min/{1.73_m2} [facility] Glucose mean value [Mass/vol ume] in Blood Estimated from glycated hemoglobinon 01-31-2021 Average glucose Estimated from glycated hemoglobin mass conc (Bld) 174 mg/dL [facility] Hematocrit [Volume Fraction] of Blood by Automated counton 01-31-2021 Hematocrit (Bld) [Volume fraction] 34.7 % 34.0-46.4 [facility] Hemoglobin A1c percentageon 01-31-2021 HbA1c (Bld) [Mass fraction] 7.7 % 4.3-5.6 [facility] Comment on above: Increased risk for d iabetes: 5.7 - 6.4diabetes: >6.4glycemic control for adults with diabetes: <7.0 Otheron 01-31-2021 GFR/1.73 sq M.predicted MDRD (S/P/Bld) [Vol rate/Area] 55 mL/min/{1.73_m2} [facility] Comment on above: GFR estimated refere nce range: According to KDOQI guidelines, <60 ml/min/1.73m2 is sufficient to diagnose a patient with chronic kidney disease. Nucleated RBC/100 WBC (Bld) [Ratio] 0.2 % 0-0.5 [facility] Pharmacy Creatinine Clearance (Chem N/A [facility] Protein [Mass/volume] in Ser um or Plasmaon 01-31-2021 Protein [Mass/Vol] 6.2 g/dL 6.1-7.9 [facility] Serum globulin measurement b y calculation (mass/volume)on 01-31-2021 Globulin (S) [Mass/Vol] 2.5 g/dL [facility] Serum or plasma alanine stubbs otransferase measurement without P-5'-P (enzymatic activion 01-31-2021 ALT No additional P-5'-P [Catalytic activity/Vol] 47 U/L 10-60 [facility] Serum or plasma albumin/glob ulin mass ratioon 01-31-2021 Albumin/Globulin [Mass ratio] 1.5 {ratio} [facility] Serum or plasma alkaline lorie sphatase measurement (enzymatic activity/volume)on 01-31-2021 ALP [Catalytic activity/Vol] 90 U/L 32-92 [facility] Serum or plasma aspartate am inotransferase measurement (enzymatic activity/volume)on 01-31-2021 AST [Catalytic activity/Vol] 69 U/L 10-42 [facility] Serum or plasma calcium emperatriz urement (mass/volume)on 01-31-2021 Calcium [Mass/Vol] 8.4 mg/dL 8.2-10.2 [facility] Serum or plasma chloride edvin surement (moles/volume)on 01-31-2021 Chloride [Moles/Vol] 100 mmol/L 95-114 [facility] Serum or plasma creatinine m easurement with calculation of estimated glomerular filtron 01-31-2021 Creatinine [Mass/Vol] 1.17 mg/dL 0.44-1.[address] [facility] Serum or plasma glucose emperatriz urement (mass/volume)on 01-31-2021 Glucose [Mass/Vol] 157 mg/dL 70-100 [facility] Comment on above: ADA recommended refe rence rangeRandom Glucose Reference Range is dependent on time and content of last meal. Glucose of more than 200 mg/dL in a nonstressed, ambulatory subject supports the diagnosis of Diabetes Mellitus. Serum or plasma high density lipoprotein (HDL) cholesterol measurementon 01-31-2021 Cholesterol in HDL [Mass/Vol] 43 mg/dL 35-85 [facility] Comment on above: HDL CHOL ATP-III CLA SSIFICATION Cardiovascular RiskHDL > or equal to 60 mg/dL LOWHDL < 40 mg/dL HIGH Serum or plasma potassium me asurement (moles/volume)on 01-31-2021 Potassium [Moles/Vol] 3.5 mmol/L 3.5-5.[address] [facility] Serum or plasma sodium measu rement (moles/volume)on 01-31-2021 Sodium [Moles/Vol] 140 mmol/L 136-146 [facility] Serum or plasma total biliru bin measurement (mass/volume)on 01-31-2021 Bilirubin [Mass/Vol] 0.9 mg/dL 0.3-1.2 [facility] Serum or plasma total carbon dioxide measurement (moles/volume)on 01-31-2021 CO2 [Moles/Vol] 26.2 mmol/L 22.0-30.0 [facility] Serum or plasma total choles terol/high density lipoprotein (HDL) cholesterol mass dulce maira 01-31-2021 Cholesterol.total/Chol esterol in HDL [Mass ratio] 3.0 {ratio} [facility] Serum or plasma urea nitroge n measurement (mass/volume)on 01-31-2021 Urea nitrogen [Mass/Vol] 23 mg/dL 9- [facility] Specific gravity of Urine by Automated test stripon 01-31-2021 Specific gravity (U) [Rel density] 1.020 1.001-1.03 0 [facility] Squamous epithelial cells de tection in urine sediment by light microscopyon 01-31-2021 Epithelial cells.squamous LM Ql (Urine sed) 10-19 [HPF] [facility] Triglyceride [Mass/volume] i n Serum or Plasmaon 01-31-2021 Triglyceride [Mass/Vol] 114 mg/dL 35-149 [facility] Comment on above: TRIG ATP III CLASSIF ICATIONTRIG less than 150 mg/dL NormalTRIG 150-199 mg/dL Borderline highTRIG 200-500 mg/dL High TRIG greater than 500 mg/dL Very highStandard traceable to the Center for Disease Conrtrol and Prevention (CDC) test method. Urinalysison 01-31-2021 Hyaline casts LM Ql (Urine sed) 0-8 [LPF] [facility] Urine bacteria detection by automated methodon 01-31-2021 Bacteria Auto Ql (U) None seen None Seen [facility] Urine clarity by refractomet ry automatedon 01-31-2021 Clarity Refractometry automated (U) Clear Clear [facility] Urine glucose measurement by automated test strip (mass/volume)on 01-31-2021 Glucose Auto test strip (U) [Mass/Vol] Normal mg/dL Normal [facility] Urine hemoglobin detection b y automated test stripon 01-31-2021 Hemoglobin Auto test strip Ql (U) Negative Negative [facility] Urine ketones measurement by automated test strip (mass/volume)on 01-31-2021 Ketones (U) [Mass/Vol] Negative Negative Fi [facility] Urine leukocyte esterase det ection by automated test stripon 01-31-2021 Leukocyte esterase Auto test strip Ql (U) 1+ Negative [facility] Urine microalbumin measureme nt with detection limit of 20 mg/L or less (mass/volume)on 01-31-2021 Albumin DL <= 20 mg/L (U) [Mass/Vol] 0.9 mg/dL 0.0-1.8 [facility] Urine microalbumin/creatinin e mass ratioon 01-31-2021 Albumin/Creatinine DL <= 20 mg/L (U) [Mass ratio] 7.0 mg/g 0.0-30.0 [facility] Comment on above: 30-300 mg/g indicate s an increased risk for diabetic nephropathy. Greater than 300 mg/g is consistent with clinical nephropathy. (Am. J. Kidney Disease 1995, 25:107) Urine nitrite detection by t est stripon 01-31-2021 Nitrite Ql (U) Negative Negative [facility] Urine pH measurement by auto mated test stripon 01-31-2021 pH (U) 5.0 [pH] 5.0-9.0 [facility] Urine protein measurement by automated test strip (mass/volume)on 01-31-2021 Protein (U) [Mass/Vol] Trace mg/dL Negative F [facility] Urine total bilirubin detect ion by test stripon 01-31-2021 Bilirubin Ql (U) Negative Negative [facility] Urine urobilinogen measureme nt by automated test strip (mass/volume)on 01-31-2021 Urobilinogen (U) [Mass/Vol] Normal mg/dL Normal [facility] Vital Signs Date Time Vital Sign Value Performing Clinician Facility 03-28-2024 11:48-0400 Blood Pressure Location Verónica Ugarte [facility] 03-28-2024 11:48-0400 Diastolic blood pressure 75 mm[Hg] Kyleed Emilyli [facility] 03-28-2024 11:48-0400 Heart rate 80 /min Mohamad Mouchli [facility] 03-28-2024 11:48-0400 Respiratory rate 16 /min Bretamad Momouchli [facility] 03-28-2024 11:48-0400 Systolic blood pressure 126 mm[Hg] Verónica Barruchli [facility] 02-25-2024 10:03-0400 Body temperature 97.7 [degF] Chair Jarred Work Phone: [facility] 02-25-2024 10:03-0400 Diastolic blood pressure 53 mm[Hg] Chair [place] Work Phone: [facility] 02-25-2024 10:03-0400 Heart rate 82 /min Chair [place] Work Phone: [facility] 02-25-2024 10:03-0400 Respiratory rate 16 /min Chair [place] Work Phone: [facility] 02-25-2024 10:03-0400 SaO2% (BldA) [Mass fraction] 97 % Chair [place] Work Phone: [facility] 02-25-2024 10:03-0400 Systolic blood pressure 113 mm[Hg] Chair [place] Work Phone: [facility] 01-29-2024 10:17-0400 Body height 158 cm Daksha Kanger PA-C Work Phone: [facility] 01-29-2024 10:17-0400 Body temperature 98.2 [degF] Daksha Kanger PA-C Work Phone: [facility] 01-29-2024 10:17-0400 Body weight 99 kg Daksha Cyrus PA-C Work Phone: [facility] 01-29-2024 10:17-0400 Diastolic blood pressure 66 mm[Hg] Daksha Cyrus PA-C Work Phone: [facility] 01-29-2024 10:17-0400 Heart rate 93 /min Daksha Cyrus PA-C Work Phone: [facility] 01-29-2024 10:17-0400 Respiratory rate 16 /min Daksha Cyrus PA-C Work Phone: [facility] 01-29-2024 10:17-0400 SaO2% (BldA) [Mass fraction] 95 % Daksha Cyrus PA-C Work Phone: [facility] 01-29-2024 10:17-0400 Systolic blood pressure 136 mm[Hg] Daksha Cyrus PA-C Work Phone: [facility] 12-07-2023 09:08-0500 Blood Pressure Location Nisa Chatmanmetz [facility] 12-07-2023 09:08-0500 Body temperature 96.8 [degF] Nisa Chatmanmetz [facility] 12-07-2023 09:08-0500 Diastolic blood pressure 74 mm[Hg] Nisa Ruth [facility] 12-07-2023 09:08-0500 Heart rate 92 /min Nisa Ruth [facility] 12-07-2023 09:08-0500 Systolic blood pressure 122 mm[Hg] Nisa Ruth [facility] 10-20-2023 10:30-0500 Body height 162.56 cm Anh Delcid Other [employer] Other 10-20-2023 10:30-0500 Body mass index (BMI) [Ratio] 36.04 kg/m2 Anh Delcid Other [employer] Other 10-20-2023 10:30-0500 Body weight 95.26 kg Anh Delcid Other [employer] Other 10-20-2023 10:30-0500 Diastolic blood pressure 70 mm[Hg] Anh Delcid Other [employer] Other 10-20-2023 10:30-0500 SaO2% (BldA) [Mass fraction] 95 % Anh Delcid Other [employer] Other 10-20-2023 10:30-0500 Systolic blood pressure 123 mm[Hg] Anh Delcid Other [employer] Other 07-24-2023 13:56-0400 Body height 158 cm Daksha Cyrus PA-C Work Phone: [facility] 07-24-2023 13:56-0400 Body temperature 97.7 [degF] Daksha Cyrus PA-C Work Phone: [facility] 07-24-2023 13:56-0400 Body weight 92.63 kg Daksha Cyrus PA-C Work Phone: [facility] 07-24-2023 13:56-0400 Diastolic blood pressure 54 mm[Hg] Daksha Cyrus PA-C Work Phone: [facility] 07-24-2023 13:56-0400 Heart rate 79 /min Daksha Cyrus PA-C Work Phone: [facility] 07-24-2023 13:56-0400 Respiratory rate 16 /min Daksha Cyrus PA-C Work Phone: [facility] 07-24-2023 13:56-0400 SaO2% (BldA) [Mass fraction] 95 % Daksha Cyrus PA-C Work Phone: [facility] 07-24-2023 13:56-0400 Systolic blood pressure 132 mm[Hg] Daksha Cyrus PA-C Work Phone: [facility] 05-01-2023 13:42-0400 Body height 158 cm Daksha Cyrus PA-C Work Phone: [facility] 05-01-2023 13:42-0400 Body temperature 97.59 [degF] Daksha Cyrus PA-C Work Phone: [facility] 05-01-2023 13:42-0400 Body weight 93.62 kg Daksha Cyrus PA-C Work Phone: [facility] 05-01-2023 13:42-0400 Diastolic blood pressure 49 mm[Hg] Daksha Cyrus PA-C Work Phone: [facility] 05-01-2023 13:42-0400 Heart rate 82 /min Daksha Cyrus PA-C Work Phone: [facility] 05-01-2023 13:42-0400 Respiratory rate 18 /min Daksha Cyrus PA-C Work Phone: [facility] 05-01-2023 13:42-0400 SaO2% (BldA) [Mass fraction] 95 % Daksha Cyrus PA-C Work Phone: [facility] 05-01-2023 13:42-0400 Systolic blood pressure 131 mm[Hg] Daksha Cyrus PA-C Work Phone: [facility] 04-15-2023 09:26-0400 Blood Pressure Location Gomez SALAM [facility] 04-15-2023 09:26-0400 Diastolic blood pressure 75 mm[Hg] Gomez SALAM [facility] 04-15-2023 09:26-0400 Heart rate 82 /min Gomez SALAM [facility] 04-15-2023 09:26-0400 Respiratory rate 16 /min Gomez SALAM [facility] 04-15-2023 09:26-0400 SaO2% (BldA) [Mass fraction] 96 % Gomez SALAM [facility] 04-15-2023 09:26-0400 Systolic blood pressure 127 mm[Hg] Gomez SALAM [facility] 03-13-2023 10:00-0400 Diastolic blood pressure 72 mm[Hg] DO Vinay Bunting Work Phone: [facility] 03-13-2023 10:00-0400 Heart rate 76 /min DO Vinay Bunting Work Phone: [facility] 03-13-2023 10:00-0400 Respiratory rate 16 /min DO Vinay Bunting Work Phone: [facility] 03-13-2023 10:00-0400 SaO2% (BldA) [Mass fraction] 96 % DO Vinay Bunting Work Phone: [facility] 03-13-2023 10:00-0400 Systolic blood pressure 126 mm[Hg] DO Vinay Bunting Work Phone: [facility] 03-13-2023 08:00-0400 Body temperature 97.7 [degF] DO Vinay Bunting Work Phone: [facility] 03-13-2023 05:27-0400 Body weight 96.8 kg DO Vinay Bunting Work Phone: [facility] 03-12-2023 12:20-0400 Body height 157.48 cm DO Vinay Bunting Work Phone: [facility] 02-06-2023 14:08-0400 Body height 158 cm Daksha Cyrus PA-C Work Phone: [facility] 02-06-2023 14:08-0400 Body temperature 97.2 [degF] Daksha Cyrus PA-C Work Phone: [facility] 02-06-2023 14:08-0400 Body weight 97.8 kg Daksha Cyrus PA-C Work Phone: [facility] 02-06-2023 14:08-0400 Diastolic blood pressure 61 mm[Hg] Daksha Cyrus PA-C Work Phone: [facility] 02-06-2023 14:08-0400 Heart rate 84 /min Daksha Cyrus PA-C Work Phone: [facility] 02-06-2023 14:08-0400 Respiratory rate 16 /min Daksha Cyrus PA-C Work Phone: [facility] 02-06-2023 14:08-0400 SaO2% (BldA) [Mass fraction] 96 % Daksha Cyrus PA-C Work Phone: [facility] 02-06-2023 14:08-0400 Systolic blood pressure 137 mm[Hg] Daksha Cyrus PA-C Work Phone: [facility] 12-29-2022 16:28-0500 Diastolic blood pressure 67 mm[Hg] DO Vinay Bunting Work Phone: [facility] 12-29-2022 16:28-0500 Heart rate 87 /min DO Vinay Bunting Work Phone: [facility] 12-29-2022 16:28-0500 Respiratory rate 16 /min DO Vinay Bunting Work Phone: [facility] 12-29-2022 16:28-0500 SaO2% (BldA) [Mass fraction] 96 % DO Vinay Bunting Work Phone: [facility] 12-29-2022 16:28-0500 Systolic blood pressure 156 mm[Hg] DO Vinay Bunting Work Phone: [facility] 12-29-2022 13:16-0500 Body height 162.56 cm DO Vinay Bunting Work Phone: [facility] 12-29-2022 13:16-0500 Body temperature 97.5 [degF] DO Vinay Bunting Work Phone: [facility] 12-29-2022 13:16-0500 Body weight 97.06 kg DO Vinay Bunting Work Phone: [facility] 12-24-2022 10:10-0500 Blood Pressure Location Nisa Chatmanmetz [facility] 12-24-2022 10:10-0500 Body temperature 96.8 [degF] Nisa Ruth [facility] 12-24-2022 10:10-0500 Diastolic blood pressure 75 mm[Hg] Nisa Ruth [facility] 12-24-2022 10:10-0500 Heart rate 77 /min Nisa Avilaz [facility] 12-24-2022 10:10-0500 Systolic blood pressure 132 mm[Hg] Nisa Ruth [facility] 12-12-2022 14:23-0500 Body height 158 cm Daksha Cyrus PA-C Work Phone: [facility] 12-12-2022 14:23-0500 Body temperature 97.39 [degF] Daksha Cyrus PA-C Work Phone: [facility] 12-12-2022 14:23-0500 Body weight 97.98 kg Daksha Cyrus PA-C Work Phone: [facility] 12-12-2022 14:23-0500 Diastolic blood pressure 75 mm[Hg] Daksha Cyrus PA-C Work Phone: [facility] 12-12-2022 14:23-0500 Heart rate 69 /min Daksha Cyrus PA-C Work Phone: [facility] 12-12-2022 14:23-0500 Respiratory rate 16 /min Daksha Cyrus PA-C Work Phone: [facility] 12-12-2022 14:23-0500 SaO2% (BldA) [Mass fraction] 96 % Daksha Cyrus PA-C Work Phone: [facility] 12-12-2022 14:23-0500 Systolic blood pressure 170 mm[Hg] Daksha Cyrus PA-C Work Phone: [facility] 10-30-2022 13:19-0500 Body temperature 98.71 [degF] Chair [place] Work Phone: [facility] 10-30-2022 13:19-0500 Diastolic blood pressure 55 mm[Hg] Chair Jarred Work Phone: [facility] 10-30-2022 13:19-0500 Heart rate 82 /min Chair [place] Work Phone: [facility] 10-30-2022 13:19-0500 Respiratory rate 18 /min Chair [place] Work Phone: [facility] 10-30-2022 13:19-0500 SaO2% (BldA) [Mass fraction] 95 % Chair [place] Work Phone: [facility] 10-30-2022 13:19-0500 Systolic blood pressure 127 mm[Hg] Chair [place] Work Phone: [facility] 10-23-2022 13:45-0500 Diastolic blood pressure 47 mm[Hg] Chair [place] Work Phone: [facility] 10-23-2022 13:45-0500 Heart rate 78 /min Chair Jarred Work Phone: [facility] 10-23-2022 13:45-0500 Respiratory rate 16 /min Chair [place] Work Phone: [facility] 10-23-2022 13:45-0500 SaO2% (BldA) [Mass fraction] 99 % Chair Jarred Work Phone: [facility] 10-23-2022 13:45-0500 Systolic blood pressure 128 mm[Hg] Chair Jarred Work Phone: [facility] 10-16-2022 10:01-0500 Body height 158 cm Daksha Cyrus PA-C Work Phone: [facility] 10-16-2022 10:01-0500 Body temperature 97.9 [degF] Daksha Cyrus PA-C Work Phone: [facility] 10-16-2022 10:01-0500 Body weight 97.07 kg Daksha Cyrus PA-C Work Phone: [facility] 10-16-2022 10:01-0500 Diastolic blood pressure 62 mm[Hg] Daksha Cyrus PA-C Work Phone: [facility] 10-16-2022 10:01-0500 Heart rate 92 /min Daksha Cyrus PA-C Work Phone: [facility] 10-16-2022 10:01-0500 Respiratory rate 16 /min Daksha Cyrus PA-C Work Phone: [facility] 10-16-2022 10:01-0500 SaO2% (BldA) [Mass fraction] 98 % Daksha Cyrus PA-C Work Phone: [facility] 10-16-2022 10:01-0500 Systolic blood pressure 149 mm[Hg] Daksha Cyrus PA-C Work Phone: [facility] 10-14-2022 11:30-0500 Body height 162.56 cm Anh Delcid Other [employer] Other 10-14-2022 11:30-0500 Body mass index (BMI) [Ratio] 36.39 kg/m2 Anh Delcid Other [employer] Other 10-14-2022 11:30-0500 Body temperature 97.8 [degF] Anh Delcid Other [employer] Other 10-14-2022 11:30-0500 Body weight 96.16 kg Anh Delcid Other [employer] Other 10-14-2022 11:30-0500 Diastolic blood pressure 74 mm[Hg] Anh Delcid Other [employer] Other 10-14-2022 11:30-0500 SaO2% (BldA) [Mass fraction] 97 % Anh Delcid Other [employer] Other 10-14-2022 11:30-0500 Systolic blood pressure 118 mm[Hg] Anh Delcid Other [employer] Other 10-01-2022 10:51-0500 Body height 158 cm Henry Walker MD Work Phone: [facility] 10-01-2022 10:51-0500 Body temperature 96.91 [degF] Henry Walker MD Work Phone: [facility] 10-01-2022 10:51-0500 Body weight 98.07 kg Henry Walker MD Work Phone: [facility] 10-01-2022 10:51-0500 Diastolic blood pressure 66 mm[Hg] Henry Walker MD Work Phone: [facility] 10-01-2022 10:51-0500 Heart rate 92 /min Henry Walker MD Work Phone: [facility] 10-01-2022 10:51-0500 Respiratory rate 18 /min Henry Walker MD Work Phone: [facility] 10-01-2022 10:51-0500 SaO2% (BldA) [Mass fraction] 96 % Henry Walker MD Work Phone: [facility] 10-01-2022 10:51-0500 Systolic blood pressure 153 mm[Hg] Henry Walker MD Work Phone: [facility] 09-02-2022 10:24-0400 Diastolic blood pressure 71 mm[Hg] Jose Carlos [facility] 09-02-2022 10:24-0400 Mean blood pressure 96 mm[Hg] Jose Carlos [facility] 09-02-2022 10:24-0400 Systolic blood pressure 145 mm[Hg] Jose Carlos [facility] 09-02-2022 10:10-0400 Blood Pressure Location Jose Carlos [facility] 09-02-2022 10:10-0400 Diastolic blood pressure 74 mm[Hg] Jose Carlos [facility] 09-02-2022 10:10-0400 Heart rate 90 /min Jose Carlos [facility] 09-02-2022 10:10-0400 Respiratory rate 18 /min Jose Carlos [facility] 09-02-2022 10:10-0400 SaO2% (BldA) [Mass fraction] 99 % Jose Carlos [facility] 09-02-2022 10:10-0400 Systolic blood pressure 145 mm[Hg] Jose Carlos [facility] 07-22-2022 20:31-0400 Diastolic blood pressure 62 mm[Hg] DO Vinay Bunting Work Phone: [facility] 07-22-2022 20:31-0400 Heart rate 73 /min DO Vinay Bunting Work Phone: [facility] 07-22-2022 20:31-0400 Respiratory rate 16 /min DO Vinay Bunting Work Phone: [facility] 07-22-2022 20:31-0400 SaO2% (BldA) [Mass fraction] 99 % DO Vinay Bunting Work Phone: [facility] 07-22-2022 20:31-0400 Systolic blood pressure 132 mm[Hg] DO Vinay Bunting Work Phone: [facility] 07-22-2022 15:52-0400 Body height 162.56 cm DO Vinay Bunting Work Phone: [facility] 07-22-2022 15:52-0400 Body temperature 98 [degF] DO Vinay Bunting Work Phone: [facility] 07-22-2022 15:52-0400 Body weight 98.06 kg DO Vinay Bunting Work Phone: [facility] 06-12-2022 09:33-0400 Blood Pressure Location Gomez SALAM [facility] 06-12-2022 09:33-0400 Diastolic blood pressure 77 mm[Hg] Gomez SALAM [facility] 06-12-2022 09:33-0400 Heart rate 87 /min Gomez SALAM [facility] 06-12-2022 09:33-0400 Respiratory rate 14 /min Gomez SALAM [facility] 06-12-2022 09:33-0400 SaO2% (BldA) [Mass fraction] 97 % Gomez SALAM [facility] 06-12-2022 09:33-0400 Systolic blood pressure 163 mm[Hg] Gomez SALAM [facility] 06-12-2022 09:20-0400 Blood Pressure Location Gomez SALAM [facility] 06-12-2022 09:20-0400 Diastolic blood pressure 70 mm[Hg] Gomez SALAM [facility] 06-12-2022 09:20-0400 Heart rate 92 /min Gomez SALAM [facility] 06-12-2022 09:20-0400 Respiratory rate 29 /min Gomez SALAM [facility] 06-12-2022 09:20-0400 SaO2% (BldA) [Mass fraction] 97 % Gomez SALAM [facility] 06-12-2022 09:20-0400 Systolic blood pressure 127 mm[Hg] Gomez SALAM [facility] 06-12-2022 09:15-0400 Blood Pressure Location Gomez SALAM [facility] 06-12-2022 09:15-0400 Diastolic blood pressure 73 mm[Hg] Gomez SALAM [facility] 06-12-2022 09:15-0400 Heart rate 92 /min Gomez SALAM [facility] 06-12-2022 09:15-0400 Respiratory rate 10 /min Gomez SALAM [facility] 06-12-2022 09:15-0400 SaO2% (BldA) [Mass fraction] 91 % Gomez SALAM [facility] 06-12-2022 09:15-0400 Systolic blood pressure 129 mm[Hg] Gomez SALAM [facility] 06-12-2022 09:08-0400 Body temperature 97.34 [degF] Gomez SALAM [facility] 06-12-2022 07:48-0400 Body temperature 96.8 [degF] Gomez SALAM [facility] 04-23-2022 09:40-0400 Diastolic blood pressure 76 mm[Hg] Gomez SALAM [facility] 04-23-2022 09:40-0400 Heart rate 78 /min Gomez SALAM [facility] 04-23-2022 09:40-0400 Systolic blood pressure 138 mm[Hg] Gomez SALAM [facility] Encounters Encounter Date Encounter Type Care Provider Facility Start: 09-29-2024 ambulatory Verónica Ugarte Fackerri lity:[facility] Start: 03-29-2024 End: 03-29-2024 ambulatory QUETA PRIETO Not Available Start: 03-28-2024 End: 03-29-2024 ambulatory Verónica Ugarte Facility:[facility] Start: 03-28-2024 End: 03-28-2024 Patient encounter procedure Verónica Ugarte [facility] Start: 03-10-2024 End: 03-10-2024 ambulatory KATARZYNA NUÑEZ Not Available Start: 02-25-2024 End: 02-25-2024 ambulatory Chair 12 Jarred Work Phone: Hematology/Oncology Comment on above: Iron deficiency anem ia due to chronic blood loss (Primary Dx) Start: 02-18-2024 End: 02-18-2024 ambulatory Chair 11 Jarred Work Phone: Hematology/Oncology Comment on above: Iron deficiency anem ia due to chronic blood loss (Primary Dx) Start: 02-15-2024 End: 02-16-2024 ambulatory KATARZYNA Hankins SAVANNAH Not Available Start: 02-11-2024 End: 02-11-2024 ambulatory Vinay Bunting Facility:[facility] Start: 02-11-2024 End: 02-11-2024 ambulatory DO Vinay Bunting Work Phone: [facility] Work Phone: Start: 02-11-2024 End: 02-11-2024 Patient encounter procedure DO Vinay Bunting Work Phone: [facility] [place] Work Phone: Start: 02-10-2024 End: 02-10-2024 ambulatory JAYLIN Paco KWAKU Not Available Start: 02-08-2024 Social Work Renetta Johnson ENGINEER CONDUCTOR Hematolo gy/Oncology Start: 02-01-2024 Telephone encounter Samantha Guerra Hematology/Oncology Comment on above: IV Iron Start: 01-29-2024 Telephone encounter Samantha Guerra Hematology/Oncology Comment on above: Patient Update Start: 01-29-2024 End: 01-29-2024 ambulatory DAKSHA BRIDGES Facility:[facility] Start: 01-29-2024 End: 01-29-2024 ambulatory Daksha Bridges PA-C Work Phone: Hematology/Oncology Comment on above: Stage 3b chronic kid tamara disease (HCC) (Primary Dx); Iron deficiency anemia secondary to inadequate dietary iron intake Start: 01-29-2024 End: 01-29-2024 Patient encounter procedure Daksha Bridges PA-C Work Phone: [facility] Start: 01-28-2024 End: 01-29-2024 ambulatory VINAY R BUNTING Facility:[facility] Start: 01-28-2024 End: 01-28-2024 Patient encounter procedure Nisa Miranda [facility] Start: 01-18-2024 End: 01-18-2024 ambulatory TADBA DAVIS Not Available Start: 12-07-2023 End: 12-08-2023 ambulatory Nisa Miranda Facility:[facility] Start: 12-07-2023 End: 12-07-2023 Patient encounter procedure Nisa Miranda [facility] Start: 10-26-2023 Telephone encounter Samantha Guerra Hematology/Oncology Comment on above: Results Start: 10-23-2023 End: 10-23-2023 ambulatory NISA MIRANDA Facility:[facility] Start: 10-20-2023 Office outpatient vi sit 25 minutes Anh Delcid [facility] Start: 10-20-2023 End: 10-20-2023 ambulatory Anh Delcid Facility:[facility] Start: 10-20-2023 End: 10-20-2023 ambulatory DO Vinay Bunting Work Phone: [facility] Work Phone: Start: 10-20-2023 End: 10-20-2023 Patient encounter procedure DO Vinay Bunting Work Phone: [facility] Work Phone: Start: 09-05-2023 End: 09-05-2023 ambulatory Vinay Bunting Facility:[facility] Start: 09-05-2023 End: 09-05-2023 ambulatory DO Vinay Bunting Work Phone: [facility] Work Phone: Start: 09-05-2023 End: 09-05-2023 Patient encounter procedure DO Vinay Bunting Work Phone: [facility] [place] Work Phone: Start: 07-27-2023 Telephone encounter Samantha Guerra Hematology/Oncology Comment on above: Results Start: 07-24-2023 End: 07-24-2023 ambulatory Daksha M Cyrus PA-C Work Phone: Hematology/Oncology Comment on above: Iron deficiency anem ia secondary to inadequate dietary iron intake (Primary Dx); Stage 3b chronic kidney disease (HCC) Start: 07-24-2023 End: 07-24-2023 Patient encounter procedure Daksha Henriquez Cyrus PA-C Work Phone: [facility] Start: 07-24-2023 Telephone encounter Daksha Henriquez Reyes rodrigez PA-C Work Phone: Hematology/Oncology Comment on above: Results Start: 05-20-2023 End: 05-20-2023 ambulatory Vinay Bunting Facility:[facility] Start: 05-04-2023 Telephone encounter Karlie Car RN Hematology/Oncology Comment on above: Results Start: 05-01-2023 End: 05-01-2023 ambulatory Daksha M Cyrus PA-C Work Phone: Hematology/Oncology Comment on above: Iron deficiency anem ia secondary to inadequate dietary iron intake (Primary Dx); Stage 3b chronic kidney disease (HCC) Start: 05-01-2023 End: 05-01-2023 Patient encounter procedure Daksha M Cyrus PA-C Work Phone: [facility] Start: 04-25-2023 ambulatory Facility:[id number] Start: 04-22-2023 End: 04-23-2023 ambulatory XXXX NONE Facility:[facility] Start: 04-22-2023 End: 04-22-2023 Patient encounter procedure Gomez SALAM [facility] Start: 04-15-2023 End: 04-16-2023 [facility]ulatory [facility] Start: 04-15-2023 End: 04-15-2023 Patient encounter procedure Gomez SALAM [facility] Start: 03-27-2023 End: 03-28-2023 ambulatory VINAY MATTA Facility:[facility] Start: 03-13-2023 End: 03-13-2023 ambulatory Queta Prieto Facility:[facility] Start: 03-13-2023 End: 03-13-2023 ambulatory DO Vinay Bunting Work Phone: [facility] Work Phone: Start: 03-13-2023 End: 03-13-2023 Patient encounter procedure DO Vinay Bunting Work Phone: [facility]-Electrodiagnostic s Work Phone: Start: 03-11-2023 End: 03-13-2023 Evaluation and management of inpatient Vinay Bunting Facility:[facility] Start: 03-11-2023 End: 03-13-2023 Evaluation and management of inpatient DO Vinay Bunting Work Phone: [facility] Med Surg Work Phone: Start: 03-11-2023 ambulatory Facility:[id number] Start: 02-23-2023 End: 02-24-2023 ambulatory [facility] Facility:[facility] Start: 02-09-2023 Telephone encounter Sonia Rg RN Hematology/Oncology Comment on above: Results Start: 02-06-2023 End: 02-06-2023 ambulatory Daksha Bridges PA-C Work Phone: Hematology/Oncology Comment on above: Iron deficiency anem ia secondary to inadequate dietary iron intake (Primary Dx) Start: 02-06-2023 End: 02-06-2023 Patient encounter procedure Daksha Bridges PA-C Work Phone: [facility] Start: 01-16-2023 End: 01-16-2023 Patient encounter procedure DO Vinay Bunting Work Phone: [facility] [place] Work Phone: Start: 01-08-2023 End: 01-08-2023 Patient encounter procedure Nisa Miranda [facility] Start: 12-29-2022 End: 12-29-2022 Admission to same day surgery center DO Ivnay Bunting Work Phone: [facility] [place] Start: 12-29-2022 End: 12-29-2022 ambulatory DO Vinay Bunting Work Phone: [facility] Work Phone: Start: 12-24-2022 End: 12-24-2022 Patient encounter procedure Nisa Miranda [facility] Start: 12-15-2022 Telephone encounter Sonia Rg RN Hematology/Oncology Comment on above: Results Start: 12-12-2022 End: 12-12-2022 ambulatory Daksha HUDDLESTON-C Work Phone: Hematology/Oncology Comment on above: Iron deficiency anem ia secondary to inadequate dietary iron intake (Primary Dx) Start: 12-12-2022 End: 12-12-2022 Patient encounter procedure Daksha HUDDLESTON-C Work Phone: [facility] Start: 10-30-2022 End: 10-30-2022 ambulatory Chair 15 Jarred Work Phone: Hematology/Oncology Comment on above: Iron deficiency anem ia due to chronic blood loss (Primary Dx) Start: 10-23-2022 End: 10-23-2022 ambulatory Chair 14 Jarred Work Phone: Hematology/Oncology Comment on above: Iron deficiency anem ia due to chronic blood loss (Primary Dx) Start: 10-22-2022 Social Work Renetta BOWSER Hematolo gy/Oncology Start: 10-16-2022 End: 10-16-2022 Patient [...] Office outpatient vi sit 25 minutes [facility]h [facility] Start: 10-14-2022 End: 10-14-2022 ambulatory DO Vinay Bunting Work Phone: [facility] Work Phone: Start: 10-14-2022 End: 10-14-2022 Patient encounter procedure DO Vinay Bunting Work Phone: [facility]Sleep [facility] Start: 10-10-2022 Social Work Renetta Johnson ENGINEER CONDUCTOR Hematolo gy/Oncology Start: 10-03-2022 Telephone encounter Henry gardner MD Work Phone: Hematology/Oncology Comment on above: Results, Lab Start: 10-01-2022 End: 10-01-2022 ambulatory Henry Walker MD Work Phone: Hematology/Oncology Comment on above: Anemia, unspecified type (Primary Dx) Start: 10-01-2022 End: 10-01-2022 Patient encounter procedure Henry Walker MD Work Phone: [facility] Start: 09-26-2022 Chart abstracting Henry hernandez MD Work Phone: Hematology/Oncology Start: 09-19-2022 End: 09-19-2022 Patient encounter procedure Nisa Miranda [facility] Start: 09-09-2022 End: 09-10-[address] DOCTOR SALGADO Facility: Start: 09-02-2022 End: 09-02-2022 Patient encounter procedure Jose Carlos [facility] Start: 07-31-2022 End: 07-31-2022 Patient encounter procedure DO Vinay Bunting Work Phone: [facility] Start: 07-24-2022 End: 07-24-2022 Patient encounter procedure DO Vinay Bunting Work Phone: [facility] Start: 07-22-2022 End: 07-22-2022 Emergency department patient visit DO Vinay Bunting Work Phone: [facility]-Emergency Room Start: 06-24-2022 End: 06-25-2022 ambulatory GOMEZ SALAM Facility:[facility] Start: 06-23-2022 End: 06-24-[address] VINAY BUNTING Facility:[facility] Start: 06-16-2022 End: 06-16-2022 Patient encounter procedure DO Vinay Bunting Work Phone: [facility] Start: 06-12-2022 End: 06-12-2022 Patient encounter procedure Gomez SALAM [facility] Start: 05-21-2022 End: 05-21-2022 Patient encounter procedure DO Vinay Bunting Work Phone: [facility] Start: 04-23-2022 End: 04-23-2022 Patient encounter procedure Gomez SALAM [facility] Start: 04-22-2022 End: 04-22-2022 Patient encounter procedure DO Vinay Bunting Work Phone: [facility] Start: 01-31-2021 End: 01-31-2021 Patient encounter procedure Vinay Bunting -[facility] Procedures Date Procedure Procedure Detail Performing Clinician Start: 02-29-2024 Carpal tunnel syndrome (disorder) Kylee Ugarte Start: 02-11-2024 Plain chest X-ray DO Vinay Bunting Work Phone: Start: 03-11-2023 MRI of head DO Vinay [...] Dual energy X-ray absorptiometry DO Naren in Bunting Work Phone: Start: 07-22-2022 Plain chest X-ray DO Vinay Bunting Work Phone: Start: 06-16-2022 Screening mammography of bilateral breasts DO Vinay Bunting Work Phone: Start: 06-12-2022 Colonoscopy Gomez SALAM Start: 06-12-2022 Esophagogastroduodenoscopy Gomez SALAM Start: 04-22-2022 X-ray of both knees DO Vinay Bunting Work Phone: Scar management Gomez SALAM Urine culture DO Vinay Bunt ing Work Phone: Plan of Treatment Date Care Activity Detail Author Start: 01-28-2027 Diabetes Screening Diabetes Screenin g [facility] Start: 10-23-2026 Diabetes Screening Diabetes Screenin g [facility] Start: 07-24-2026 DIABETES SCREEN DIABETES SCREEN [facility] Start: 05-01-2026 DIABETES SCREEN DIABETES SCREEN [facility] Start: 02-06-2026 DIABETES SCREEN DIABETES SCREEN [facility] Start: 12-12-2025 DIABETES SCREEN DIABETES SCREEN [facility] Start: 10-01-2025 DIABETES SCREEN DIABETES SCREEN [facility] Start: 01-28-2025 Complete blood count Hemoglobin/Braden tocrit [facility] Start: 01-28-2025 Creatinine measurement Serum Creatin ine [facility] Start: 04-30-2024 End: 07-30-2024 CBC W Auto Differential panel - Blood CBC + DIFF Lab Routine Stage 3b chronic kidney disease (HCC) Iron deficiency anemia secondary to inadequate dietary iron intake Expected: 04/30/2024 (Approximate), Expires: 07/30/2024 [facility] Work Phone: Comment on above: Expected: 04/30/2024 (Approximate), Expires: 07/30/2024 Start: 04-30-2024 End: 07-30-2024 Comprehensive metabolic 2000 panel - Serum or Plasma COMP METABOLIC PANEL Lab Routine Stage 3b chronic kidney disease (HCC) Iron deficiency anemia secondary to inadequate dietary iron intake Expected: 04/30/2024 (Approximate), Expires: 07/30/2024 [facility] Work Phone: Comment on above: Expected: 04/30/2024 (Approximate), Expires: 07/30/2024 Start: 04-30-2024 End: 07-30-2024 Ferritin [Mass/volume] in Serum or Plasma FERRITIN BLD Lab Routine Stage 3b chronic kidney disease (HCC) Iron deficiency anemia secondary to inadequate dietary iron intake Expected: 04/30/2024 (Approximate), Expires: 07/30/2024 [facility] Work Phone: Comment on above: Expected: 04/30/2024 (Approximate), Expires: 07/30/2024 Start: 04-30-2024 End: 07-30-2024 Iron and Iron binding capacity panel - Serum or Plasma IRON + TIBC Lab Routine Stage 3b chronic kidney disease (HCC) Iron deficiency anemia secondary to inadequate dietary iron intake Expected: 04/30/2024 (Approximate), Expires: 07/30/2024 [facility] Work Phone: Comment on above: Expected: 04/30/2024 (Approximate), Expires: 07/30/2024 Start: 11-16-2023 Advance Directive Discussion Advance Directive Discussion [facility] Start: 11-16-2023 Behavioral Health Screening Behavioral Health Screening [facility] Start: 11-16-2023 Depression Assessment Depression Ass essment [facility] Start: 08-01-2023 End: 10-01-2023 CBC W Auto Differential panel - Blood CBC + DIFF Lab Routine Iron deficiency anemia secondary to inadequate dietary iron intake Expected: 08/01/2023 (Approximate), Expires: 10/01/2023 [facility] Work Phone: Comment on above: Expected: 08/01/2023 (Approximate), Expires: 10/01/2023 Start: 08-01-2023 End: 10-01-2023 Comprehensive metabolic 2000 panel - Serum or Plasma COMP METABOLIC PANEL Lab Routine Iron deficiency anemia secondary to inadequate dietary iron intake Expected: 08/01/2023 (Approximate), Expires: 10/01/2023 [facility] Work Phone: Comment on above: Expected: 08/01/2023 (Approximate), Expires: 10/01/2023 Start: 08-01-2023 End: 10-01-2023 Ferritin [Mass/volume] in Serum or Plasma FERRITIN BLD Lab Routine Iron deficiency anemia secondary to inadequate dietary iron intake Expected: 08/01/2023 (Approximate), Expires: 10/01/2023 [facility] Work Phone: Comment on above: Expected: 08/01/2023 (Approximate), Expires: 10/01/2023 Start: 08-01-2023 End: 10-01-2023 Iron and Iron binding capacity panel - Serum or Plasma IRON + TIBC Lab Routine Iron deficiency anemia secondary to inadequate dietary iron intake Expected: 08/01/2023 (Approximate), Expires: 10/01/2023 [facility] Work Phone: Comment on above: Expected: 08/01/2023 (Approximate), Expires: 10/01/2023 Start: 07-24-2023 End: 09-23-2023 CBC W Auto Differential panel - Blood CBC + DIFF Lab Routine Iron deficiency anemia secondary to inadequate dietary iron intake Stage 3b chronic kidney disease (HCC) Expected: 07/24/2023, Expires: 09/23/2023 [facility] Work Phone: Comment on above: Expected: 07/24/2023 , Expires: 09/23/2023 Start: 07-24-2023 End: 09-23-2023 Comprehensive metabolic 2000 panel - Serum or Plasma COMP METABOLIC PANEL Lab Routine Iron deficiency anemia secondary to inadequate dietary iron intake Stage 3b chronic kidney disease (HCC) Expected: 07/24/2023, Expires: 09/23/2023 [facility] Work Phone: Comment on above: Expected: 07/24/2023 , Expires: 09/23/2023 Start: 07-24-2023 End: 09-23-2023 Ferritin [Mass/volume] in Serum or Plasma FERRITIN BLD Lab Routine Iron deficiency anemia secondary to inadequate dietary iron intake Stage 3b chronic kidney disease (HCC) Expected: 07/24/2023, Expires: 09/23/2023 [facility] Work Phone: Comment on above: Expected: 07/24/2023 , Expires: 09/23/2023 Start: 07-24-2023 End: 09-23-2023 Iron and Iron binding capacity panel - Serum or Plasma IRON + TIBC Lab Routine Iron deficiency anemia secondary to inadequate dietary iron intake Stage 3b chronic kidney disease (HCC) Expected: 07/24/2023, Expires: 09/23/2023 [facility] Work Phone: Comment on above: Expected: 07/24/2023 , Expires: 09/23/2023 Start: 07-17-2023 Covid-19 Vaccine () Covid-19 Vaccine () [facility] Start: 07-17-2023 Influenza vaccination C [facility] Start: 05-09-2023 End: 07-09-2023 CBC W Auto Differential panel - Blood CBC + DIFF Lab Routine Iron deficiency anemia secondary to inadequate dietary iron intake Expected: 05/09/2023 (Approximate), Expires: 07/09/2023 [facility] Work Phone: Comment on above: Expected: 05/09/2023 (Approximate), Expires: 07/09/2023 Start: 05-09-2023 End: 07-09-2023 Comprehensive metabolic 2000 panel - Serum or Plasma COMP METABOLIC PANEL Lab Routine Iron deficiency anemia secondary to inadequate dietary iron intake Expected: 05/09/2023 (Approximate), Expires: 07/09/2023 [facility] Work Phone: Comment on above: Expected: 05/09/2023 (Approximate), Expires: 07/09/2023 Start: 05-09-2023 End: 07-09-2023 Ferritin [Mass/volume] in Serum or Plasma FERRITIN BLD Lab Routine Iron deficiency anemia secondary to inadequate dietary iron intake Expected: 05/09/2023 (Approximate), Expires: 07/09/2023 [facility] Work Phone: Comment on above: Expected: 05/09/2023 (Approximate), Expires: 07/09/2023 Start: 05-09-2023 End: 07-09-2023 Iron and Iron binding capacity panel - Serum or Plasma IRON + TIBC Lab Routine Iron deficiency anemia secondary to inadequate dietary iron intake Expected: 05/09/2023 (Approximate), Expires: 07/09/2023 [facility] Work Phone: Comment on above: Expected: 05/09/2023 (Approximate), Expires: 07/09/2023 Start: 03-13-2023 [facility] Start: 03-11-2023 Physical therapy procedure [facility] Start: 03-11-2023 Hospital admission [facility] Start: 03-11-2023 Referral to neurologist [facility] Start: 02-09-2023 End: 04-11-2023 CBC W Auto Differential panel - Blood CBC + DIFF Lab Routine Iron deficiency anemia secondary to inadequate dietary iron intake Expected: 02/09/2023 (Approximate), Expires: 04/11/2023 [facility] Work Phone: Comment on above: Expected: 02/09/2023 (Approximate), Expires: 04/11/2023 Start: 02-09-2023 End: 04-11-2023 Comprehensive metabolic 2000 panel - Serum or Plasma COMP METABOLIC PANEL Lab Routine Iron deficiency anemia secondary to inadequate dietary iron intake Expected: 02/09/2023 (Approximate), Expires: 04/11/2023 [facility] Work Phone: Comment on above: Expected: 02/09/2023 (Approximate), Expires: 04/11/2023 Start: 02-09-2023 End: 04-11-2023 Ferritin [Mass/volume] in Serum or Plasma FERRITIN BLD Lab Routine Iron deficiency anemia secondary to inadequate dietary iron intake Expected: 02/09/2023 (Approximate), Expires: 04/11/2023 [facility] Work Phone: Comment on above: Expected: 02/09/2023 (Approximate), Expires: 04/11/2023 Start: 02-09-2023 End: 04-11-2023 Iron and Iron binding capacity panel - Serum or Plasma IRON + TIBC Lab Routine Iron deficiency anemia secondary to inadequate dietary iron intake Expected: 02/09/2023 (Approximate), Expires: 04/11/2023 [facility] Work Phone: Comment on above: Expected: 02/09/2023 (Approximate), Expires: 04/11/2023 Start: 02-06-2023 End: 04-08-2023 CBC W Auto Differential panel - Blood CBC + DIFF Lab Routine Iron deficiency anemia secondary to inadequate dietary iron intake Expected: 02/06/2023, Expires: 04/08/2023 [facility] Work Phone: Comment on above: Expected: 02/06/2023 , Expires: 04/08/2023 Start: 02-06-2023 End: 04-08-2023 Comprehensive metabolic 2000 panel - Serum or Plasma COMP METABOLIC PANEL Lab Routine Iron deficiency anemia secondary to inadequate dietary iron intake Expected: 02/06/2023, Expires: 04/08/2023 [facility] Work Phone: Comment on above: Expected: 02/06/2023 , Expires: 04/08/2023 Start: 02-06-2023 End: 04-08-2023 Iron and Iron binding capacity panel - Serum or Plasma IRON + TIBC Lab Routine Iron deficiency anemia secondary to inadequate dietary iron intake Expected: 02/06/2023, Expires: 04/08/2023 [facility] Work Phone: Comment on above: Expected: 02/06/2023 , Expires: 04/08/2023 Start: 12-29-2022 [facility] Start: 11-27-2022 End: 01-27-2023 CBC W Auto Differential panel - Blood CBC + DIFF Lab Routine Anemia, unspecified type Iron deficiency anemia secondary to inadequate dietary iron intake Expected: 11/27/2022, Expires: 01/27/2023 [facility] Work Phone: Comment on above: Expected: 11/27/2022 , Expires: 01/27/2023 Start: 11-27-2022 End: 01-27-2023 Comprehensive metabolic 2000 panel - Serum or Plasma COMP METABOLIC PANEL Lab Routine Anemia, unspecified type Iron deficiency anemia secondary to inadequate dietary iron intake Expected: 11/27/2022, Expires: 01/27/2023 [facility] Work Phone: Comment on above: Expected: 11/27/2022 , Expires: 01/27/2023 Start: 11-27-2022 End: 01-27-2023 Ferritin [Mass/volume] in Serum or Plasma FERRITIN BLD Lab Routine Anemia, unspecified type Iron deficiency anemia secondary to inadequate dietary iron intake Expected: 11/27/2022, Expires: 01/27/2023 [facility] Work Phone: Comment on above: Expected: 11/27/2022 , Expires: 01/27/2023 Start: 11-27-2022 End: 01-27-2023 Iron and Iron binding capacity panel - Serum or Plasma IRON + TIBC Lab Routine Anemia, unspecified type Iron deficiency anemia secondary to inadequate dietary iron intake Expected: 11/27/2022, Expires: 01/27/2023 [facility] Work Phone: Comment on above: Expected: 11/27/2022 , Expires: 01/27/2023 Start: 11-16-2022 ADVANCE DIRECTIVE DISCUSSION ADVANCE DIRECTIVE DISCUSSION [facility] Start: 11-16-2022 DEPRESSION ASSESSMENT DEPRESSION ASS ESSMENT [facility] Start: 10-29-2022 End: 12-29-2022 MONOCLONAL PROTEIN, SERUM (BLOOD) MONOCLONAL PROTEIN, SERUM (BLOOD) Lab Routine Anemia, unspecified type Expected: 10/29/2022 (Approximate), Expires: 12/29/2022 [facility] Work Phone: Comment on above: Expected: 10/29/2022 (Approximate), Expires: 12/29/2022 Start: 10-29-2022 End: 12-29-2022 PROTEIN ELECTROPHORESIS SERUM W/INTERP PROTEIN ELECTROPHORESIS SERUM W/INTERP Lab Routine Anemia, unspecified type Expected: 10/29/2022 (Approximate), Expires: 12/29/2022 [facility] Work Phone: Comment on above: Expected: 10/29/2022 (Approximate), Expires: 12/29/2022 Start: 10-01-2022 End: 12-01-2022 Cobalamin (Vitamin B12) [Mass/volume] in Serum or Plasma [facility] Work Phone: Comment on above: Expected: 10/01/2022 , Expires: 12/01/2022 Start: 10-01-2022 End: 10-01-2023 Ferritin [Mass/volume] in Serum or Plasma [facility] Work Phone: Comment on above: Expected: 10/01/2022 , Expires: 10/01/2023 Start: 10-01-2022 End: 12-01-2022 Folate [Mass/volume] in Serum or Plasma [facility] Work Phone: Comment on above: Expected: 10/01/2022 , Expires: 12/01/2022 Start: 10-01-2022 End: 10-01-2023 Iron and Iron binding capacity panel - Serum or Plasma [facility] Work Phone: Comment on above: Expected: 10/01/2022 , Expires: 10/01/2023 Start: 10-01-2022 End: 12-01-2022 PROTEIN ELECT DAVIDA UR W/INTERP [facility] Work Phone: Comment on above: Expected: 10/01/2022 , Expires: 12/01/2022 Start: 10-01-2022 End: 12-01-2022 Zinc [Mass/volume] in Serum or Plasma [facility] Work Phone: Comment on above: Expected: 10/01/2022 , Expires: 12/01/2022 Start: 07-17-2022 Influenza vaccination INFLUENZA (#1) [facility] Start: 11-16-2021 ADVANCE DIRECTIVE DISCUSSION ADVANCE DIRECTIVE DISCUSSION [facility] Start: 11-16-2021 DEPRESSION ASSESSMENT DEPRESSION ASS ESSMENT [facility] Start: 10-08-2021 COVID-19 VACCINE (4 - Booster for Pfizer series) COVID-19 VACCINE (4 - Booster for Pfizer series) [facility] Start: 10-08-2021 COVID-19 VACCINE (4 - Pfizer series) COVID-19 VACCINE (4 - Pfizer series) [facility] Start: 08-16-2019 Pneumococcal Vaccine : 65+ (2 - PCV) Pneumococcal Vaccine: 65+ (2 - PCV) [facility] Start: 08-16-2019 Pneumococcal Vaccine : 65+ (2 of 2 - PCV) Pneumococcal Vaccine: 65+ (2 of 2 - PCV) [facility] Start: 08-16-2019 PNEUMOCOCCAL: 65+ (2 - PCV) PNEUMOCOCCAL: 65+ (2 - PCV) [facility] Start: 2013 BONE DENSITY BONE DENSITY [facility] Start: 2013 Bone Density Screening Bone Density Screening [facility] Start: 2013 PNEUMOCOCCAL: 65+ (1 - PCV) PNEUMOCOCCAL: 65+ (1 - PCV) [facility] Start: 2013 Screening for osteoporosis Bone Density Screening [facility] Start: 2008 RSV Vaccine (1 - 1-d ose 60+ series) RSV Vaccine (1 - 1-dose 60+ series) [facility] Start: 1998 SHINGRIX VACCINE (1 of 2) SILVESTRE GRIX VACCINE (1 of 2) [facility] Start: 1993 COLOGUARD (FIT-DNA) COLOGUARD (FIT-D NA) [facility] Start: 1993 Colonoscopy COLONOSCOPY [facility] Start: 1993 COLORECTAL CANCER SCREENING COLORECTAL CANCER SCREENING [facility] Start: [address] COLONOGRAPHY [facility] Start: 1993 DIABETES SCREEN DIABETES SCREEN [facility] Start: 1993 FECAL OCCULT BLOOD FECAL OCCULT BLOO D [facility] Start: 1993 Lipid 1996 panel - S hilda or Plasma Lipid Screening [facility] Start: 1993 Lipid panel Lipid Screening [facility] Start: 1993 LIPID SCREEN LIPID SCREEN [facility] Start: 1993 Screening for malign ant neoplasm of colon [facility] Start: 1993 SIGMOIDOSCOPY SIGMOIDOSCOPY [facility] Start: 1988 Mammography [facility] Start: 1967 Urine microalbumin profile [facility] Start: 1966 Annual PCP Team [employer] gustavo Disease Visit Annual PCP Team Chronic Disease Visit [facility] Start: 1966 HEPATITIS C SCREENING HEPATITIS C [facility] Start: 1966 Hepatitis C screening Hepatitis C [facility] Start: 06-29-1949 COVID-19 VACCINE (#1) COVID-19 VACCI NE (#1) [facility] Bacteria identified in Urine by Culture [facility] MONOCLONAL PROTEIN, SERUM (BLOOD) MONOCLONAL PROTEIN, SERUM (BLOOD) Lab Routine Anemia, unspecified type 10/01/2022 12:19 PM EST [facility] Work Phone: Patient Education [facility] Work Phone: Patient referral [facility] Work Phone: PROTEIN ELECTROPHORE SIS SERUM W/INTERP PROTEIN ELECTROPHORESIS SERUM W/INTERP Lab Routine Anemia, unspecified type 10/01/2022 12:19 PM EST [facility] Work Phone: [facility] Immunizations Immunization Date Immunization Notes Care Provider Enrique eason 11-25-2023 influenza (HD-IIV4) vaccine, age 65+ yr, high dose, quadrivalent, PF (FLUZONE HIGH-DOSE) Daksha Bridges PA-C Work Phone: [facility] 11-25-2023 influenza virus vacc ine, unspecified formulation Nisa Miranda [facility] 08-27-2022 influenza virus vacc ine, unspecified formulation Nisa Miranda [facility] 08-27-2022 influenza, high-dose , quadrivalent vaccine (FLUZONE HIGH DOSE QUADRIVALENT) Henry Walker MD Work Phone: [facility] 09-26-2021 influenza virus vacc ine, unspecified formulation Nisa Miranda [facility] 09-26-2021 influenza, high-dose , quadrivalent vaccine (FLUZONE HIGH DOSE QUADRIVALENT) Henry Walker MD Work Phone: [facility] 08-13-2021 SARS-CoV-2 (COVID-19 ) mRNA BNT-162b2 vax Nisa Miranad [facility] Comment on above: Result Comment: 2021: [id number] 02-05-2021 SARS-CoV-2 (COVID-19 ) mRNA BNT-162b2 vax Nisapaco ChatmanRuth [facility] 01-14-2021 SARS-CoV-2 (COVID-19 ) mRNA BNT-162b2 vax Nisapaco ChatmanRuth [facility] 08-16-2018 influenza nasal, unspecified formulation Henry Walker MD Work Phone: [facility] 08-16-2018 influenza virus vacc ine, unspecified formulation Nisa Miranda [facility] 08-16-2018 influenza, injectabl e, quadrivalent, preservative free Daksha Bridges PA-C Work Phone: [facility] 08-16-2018 pneumococcal polysaccharide vaccine, 23 valent Nisa Avilaz [facility] 09-18-2016 influenza virus vacc ine, unspecified formulation Nisa Miranda [facility] 09-18-2016 influenza, high dose seasonal, preservative-free Henry Walker MD Work Phone: [facility] 10-17-2015 influenza virus vacc ine, unspecified formulation Nisapaco Avilaz [facility] 10-17-2015 influenza, seasonal, injectable Henry Walker MD Work Phone: [facility] Payers Date Payer Category Payer Medicare DEVOTED MEDICARE [facility] HMO [id number] 2023-Present [phone] [address] [place] [address] [facility] [id number] 2023 Medicare [id number] 2023 Medicare [id number] 2022 Medicaid [id number] 2022 Self-pay [id number] 2022 Unknown [id number] 2021 Unknown ANTHEM BLUE CROS S AND BLUE SHIELD ANTHEM [employer] HMO [id number] 2021-Present [phone] [address] [place] [address] HMO [id number] 1959 Unknown [id number] 1948 Unknown [id number] 2.16.840.1.957397.3.579.2.593 1948 Unknown [id number] 2.16.840.1.222233.3.579.2.593 1948 Unknown [id number] 2.16.840.1.032105.3.579.2.593 1948 Unknown [id number] 2.16.840.1.280428.3.579.2.593 1948 Unknown [id number] 2.16.840.1.274575.3.579.2.593 1948 Unknown [id number] 2.16.840.1.906032.3.579.2.593 1948 Unknown [id number] 2.16.840.1.804809.3.579.2.356 1948 Unknown [id number] 2.16.840.1.751807.3.579.2.356 1948 Unknown [id number] 2.16.840.1.181300.3.579.2.1259 1948 Unknown [id number] 2.16.840.1.051664.3.579.2.1259 1948 Unknown [id number] 2.16.840.1.381390.3.579.2.1259 1948 Unknown [id number] 2.16.840.1.938705.3.579.2.1259 1948 Unknown [id number] 2.16.840.1.439081.3.579.2.1258 1948 Unknown [id number] 2.16.840.1.153895.3.579.2.1258 1948 Unknown [id number] 2.16.840.1.478003.3.579.2.1258 1948 Unknown [id number] 2.16.840.1.232586.3.579.2.72 1948 Unknown [id number] 2.16.840.1.905721.3.579.2. 1948 Unknown [id number] 2.16.840.1.523269.3.579.2. 1948 Unknown [id number] 2.16.840.1.601138.3.579.2.72 1948 Unknown [id number] 2.16.840.1.127030.3.579.2. 1948 Unknown [id number] 2.16.840.1.981689.3.579.2. 1948 Unknown [id number] 2.16.840.1.088662.3.579.2.727 Medicare [id number] Unknown [id number] 2.16.840.1.152295.3.579.2.531 Unknown [id number] 2.16.840.1.077735.3.579.2.531 Unknown [id number] 2.16.840.1.961771.3.579.2.531 Unknown [id number] 2.16.840.1.571914.3.579.2.531 Unknown [id number] 2.16.840.1.308324.3.579.2.531 Unknown [id number] 2.16.840.1.453902.3.579.2.531 Social History Date Type Detail Facility Start: 12-26-2017 End: 03-28-2024 Tobacco smoking status NHIS Never smoked tobacco (finding) [facility] Start: 1950 Sex Assigned At Female F [facility] Tobacco smoking status Never [facility] Start: 05-01-2023 End: 07-24-2023 Sex Assigned At Female [facility] Start: 09-26-2022 End: 10-01-2022 Tobacco use and exposure Smokeless tobacco non-user [facility] Start: 09-26-2022 Alcohol intake Ex-drinker (finding) [facility] Start: 1950 Sex Assigned At Not on file C [facility] History of tobacco use Passive smoker [facility] Start: 10-01-2022 End: 10-23-2023 Alcohol intake Lifetime non-drinker (finding) [facility] Start: 09-21-2022 End: 10-16-2022 Exposure to SARS-CoV-2 (event) Not sure [facility] Start: 05-01-2023 End: 07-24-2023 History of Social function [facility] Goals Date Patient Goal Desired Activity /State Functional Status Date Assessment Result Facility 03-28-2024 Functional Status N/A [facility] 12-07-2023 Functional Status N/A [facility] 04-15-2023 Functional Status N/A [facility] 03-13-2023 Functional status Patient at Baseline [facility] Work Phone: 03-11-2023 Functional status Disability Sta tus Patient at Baseline [facility] Work Phone: 12-24-2022 Functional Status N/A [facility] 09-02-2022 Functional Status No [facility] 06-12-2022 Functional Status N/A [facility] Mental Status Date Assessment Result Facility 03-13-2023 Cognitive function Cognitive Sta tus Patient at Baseline [facility] Work Phone: Clinical Notes 06-12-2022 to 02-08-2024 Renetta Johnson LSW - 02/08/2024 11:41 AM EDTTelephone Encounter - Rudy Carbajal - 02/01/2024 9:57 AM EDTTelephone Encounter - Daksha Bridges PA-C - 02/01/2024 9:43 AM EDT Note Date & Type Note Facility 02-08-2024 Note HNO ID: [id number] Author: RENETTA JOHNSON LSW Service: ? 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 First Time Treatment List for a non-oncology treatment. No psychosocial assessment is indicated. ALIA Bean [facility] 02-08-2024 History of Presen t illness Narrative Patient appears on the [facility] First Time Treatment List for a non-oncology treatment. No psychosocial assessment is indicated. ALIA Bean documented in this encounter [facility] 02-01-2024 Miscellaneous Notes Patient has been scheduled for IV Venofer on 02/10, 02/17 and 02/24 and has been notified. Thanks! Rudy Carbajal Orders are placed. Please schedule for venofer 300 mg IV x 3 weeks Pt aware and agreeable to IV Iron MM: Please place orders PSS: please call to schedule Samantha Mcmahan RN ----- Message from Daksha Bridges PA-C sent at 02/01/2024 8:00 AM EDT ----- Please call and advise that her iron studies are dropping and she is anemic and since she is feeling more fatigued IV iron would be reasonable if she would like. documented in this encounter [facility] 01-29-2024 Miscellaneous Notes Pt called to inform MM her blood sugar is down to 198. Instructed to keep a record and notify PCP Thursday for an appt to manage. She is agreeable and will call. Samantha Mcmahan RN documented in this encounter [facility] 01-29-2024 Note HNO ID: [id number] Author: DAKSHA BRIDGES PA-C Service: ? Author Type: Physician Lumber Straightened Type: Progress Notes Filed: 01/29/2024 11:06 Note Text: PATIENT NAME: Anh Tejeda [facility] NO.: [id number] ATTENDING PHYSICIAN: Henry Walker MD DATE OF SERVICE: January 29, 2024 (Elements copied from my note dated May 01, 2023, have been reviewed and updated where appropriate, and all reflect current assessment and medical decision making during today's encounter, January 29, 2024) CHIEF COMPLAINT: Follow up Diagnosis: NAINA Treatment: Venofer x 3 doses 10/2022 HPI: Anh returns for follow up. Had to go to the ER last week due to leg rayo and cramps. Was found to have low magnesium and potassium. (Records reviewed) Also had recent liver ultrasound by her GI doctor. She is still having leg cramps, but not as severe. She had teeth pulled and new dentures and her eating has been poor. Fatigue level is worse. She feels she is tired more. She gets 5 hours of sleep and then she wakes up and can't go back to sleep. Going on a trip to [place] for week. Current Outpatient Medications Medication Sig JANUVIA 50 mg tablet Take 1 tablet by mouth every afternoon. predniSONE (DELTASONE) 20 mg tablet TAKE 2 TABLETS BY MOUTH DAILY FOR 2 DAYS THEN TAKE 1 TABLET BY MOUTH DAILY FOR 2 DAYS THEN TAKE ONE-HALF TABLET BY MOUTH DAILY FOR 2 DAYS albuterol HFA (PROVENTIL HFA, VENTOLIN HFA) 90 mcg/actuation inhaler INHALE 2 PUFFS BY MOUTH EVERY 4 HOURS NEEDED FOR COUGH Calcium Carb-Magnesium Carb 250-300 mg tab Take by mouth. MAGNESIUM OXIDE ORAL Take 1 [...] Never Passive exposure: Past Smokeless tobacco: Never Vaping Use Vaping Use: Never used Substance Use Topics Alcohol use: Never Drug [...] of hands/feet. No weakness. PHYSICAL EXAMINATION: BP 136/66 Pulse 93 Temp 36.8 ?C (98.2 ?F) (Temporal) Resp 16 Ht 158 cm (5' 2.21 ) Wt 99 kg (218 lb 4.1 oz) SpO2 95% BMI 39.66 kg/m? ECOG PERFORMANCE STATUS: 1- Restricted in physically strenuous activity. Carries out light duty. General: Alert and oriented, no distress, pleasant and cooperative. Heart: Regular, normal S1 and S2, (more content not included)... [facility] 01-29-2024 History of Presen t illness Narrative PATIENT NAME: Anh [facility] NO.: [id number] ATTENDING PHYSICIAN: Henry Walker MD DATE OF SERVICE: January 29, 2024 (Elements copied from my note dated May 01, 2023, have been reviewed and updated where appropriate, and all reflect current assessment and medical decision making during today's encounter, January 29, 2024) CHIEF COMPLAINT: Follow up Diagnosis: NAINA Treatment: Venofer x 3 doses 10/2022 HPI: Anh returns for follow up. Had to go to the ER last week due to leg rayo and cramps. Was found to have low magnesium and potassium. (Records reviewed) Also had recent liver ultrasound by her GI doctor. She is still having leg cramps, but not as severe. She had teeth pulled and new dentures and her eating has been poor. Fatigue level is worse. She feels she is tired more. She gets 5 hours of sleep and then she wakes up and can't go back to sleep. Going on a trip to [place] for week. Current Outpatient Medications Medication Sig JANUVIA 50 mg tablet Take 1 tablet by mouth every afternoon. predniSONE (DELTASONE) 20 mg tablet TAKE 2 TABLETS BY MOUTH DAILY FOR 2 DAYS THEN TAKE 1 TABLET BY MOUTH DAILY FOR 2 DAYS THEN TAKE ONE-HALF TABLET BY MOUTH DAILY FOR 2 DAYS albuterol HFA (PROVENTIL HFA, VENTOLIN HFA) 90 mcg/actuation inhaler INHALE 2 PUFFS BY MOUTH EVERY 4 HOURS NEEDED FOR COUGH Calcium Carb-Magnesium Carb 250-300 mg tab Take by mouth. MAGNESIUM OXIDE ORAL Take 1 [...] Never Passive exposure: Past Smokeless tobacco: Never Vaping Use Vaping Use: Never used Substance Use Topics Alcohol use: Never Drug [...] of hands/feet. No weakness. PHYSICAL EXAMINATION: BP 136/66 Pulse 93 Temp 36.8 C (98.2 F) (Temporal) Resp 16 Ht 158 cm (5' 2.21 ) Wt 99 kg (218 lb 4.1 oz) SpO2 95% BMI 39.66 kg/m ECOG PERFORMANCE STATUS: 1- Restricted in physically strenuous activity. Carries out light duty. General: Alert and oriented, no distress, pleasant and cooperative. Heart: Regular, normal S1 and S2, no murmurs, rubs, or gallops Lungs: Clear to auscultation bilaterally Abdomen: Benign Extremities: Feet/ankles without edema, posterior tibial pulses full and symmetrical LABS: Glucose (mg/dL) Date Value 01/29/2024 327 Potassium (mmol/L) Date Value 01/29/2024 4.5 Sodium (mmol/L) Date Value 01/29/2024 141 Chloride (mmol/L) Date Value 01/29/2024 100 CO2 (mmol/L) Date Value 01/29/2024 27 Creatinine (mg/dL) Date Value 01/29/2024 1.57 BUN (mg/dL) Date Value 01/29/2024 39 Anion Gap (mmol/L) Date Value 01/29/2024 14 Calcium, Total (mg/dL) Date Value 01/29/2024 9.5 Protein, Total (g/dL) Date Value 01/29/2024 6.6 Albumin (g/dL) Date Value 01/29/2024 4.2 Bilirubin, Total (mg/dL) Date Value 01/29/2024 0.4 Alkaline Phosphatase (U/L) Date Value 01/29/2024 152 AST (U/L) Date Value 01/29/2024 33 ALT (U/L) Date Value 01/29/2024 24 WBC Date Value Ref Range Status 01/29/2024 5.98 3.70 - 11.00 k/uL Final RBC Date Value Ref Range Status 01/29/2024 3.73 (L) 3.90 - 5.20 m/uL Final Hemoglobin Date Value Ref Range Status 01/29/2024 10.6 (L) 11.5 - 15.5 g/dL Final Hematocrit Date Value Ref Range Status 01/29/2024 32.6 (L) 36.0 - 46.0 % Final MCV Date Value Ref Range Status 01/29/2024 87.4 80.0 - 100.0 fL Final MCH Date Value Ref Range Status 01/29/2024 28.4 26.0 - 34.0 pg Final MCHC Date Value Ref Range Status 01/29/2024 32.5 30.5 - 36.0 g/dL Final RDW-CV Date Value Ref Range Status 01/29/2024 16.2 (H) 11.5 - 15.0 % Final Platelet Count Date Value Ref Range Status 01/29/2024 147 (L) 150 - 400 k/uL Final MPV Date Value Ref Range Status 01/29/2024 9.7 9.0 - 12.7 fL Final Abs Neut Date Value Ref Range Status 01/29/2024 4.52 1.45 - 7.50 k/uL Final Lymphocytes % Date Value Ref Range Status 01/29/2024 17.7 % Final Abs Lymph Date Value Ref Range Status 01/29/2024 1.06 1.00 - 4.00 k/uL Final Monocytes % Date Value Ref Range Status 01/29/2024 3.5 % Final Abs Quay Date Value Ref Range Status 01/29/2024 0.21 <0.87 k/uL Final Abs Eosin Date Value Ref Range Status 01/29/2024 0.13 <0.46 k/uL Final Basophils % Date Value Ref Range Status 01/29/2024 0.5 % Final Abs Baso Date Value Ref Range Status 01/29/2024 0.03 <0.11 k/uL Final PATH: IMAGING: ASSESSMENT [...] doses (per insurance limitations) in October 2022. Her hemoglobin remains stable today, hoewver she remains mildly anemic. Iron studies pending, and will follow up on those. Return in 3 months with repeat labs. Chronic kidney disease stage 3b--likely secondary to diabetes. PCP is following, stable currently, may contribute to some of her anemia DM2--glucose level is >300 today, she states she just ate cereal, discussed with patient to follow up with PCP Daksha Brigdes PA-C CC: Nisa Miranda CNP I spent a total of 20 minutes on the date of the service which included preparing to see the patient, dzga-xy-pwzo patient care, completing clinical documentation, obtaining and/or reviewing separately obtained history, performing a medically appropriate examination, counseling and educating the patient/family/caregiver, ordering medications, tests, or procedures, and communicating results to the patient/family/caregiver. documented in this encounter [facility] 12-07-2023 Hospital Discharg e instructions Patient Education [...] spleen. Follow these instructions at home: Take jnzj-kqf-guvfyzr and prescription medicines only as told by [...] provider. Document Revised: 01/26/2023 Document Reviewed: 01/26/2023 WISHI Patient Education 2022 [employer]. Follow Up Care 11/12/2023 09:08:30 With:Nisa Miranda CNP Address: When:3 months [facility] 10-26-2023 Miscellaneous Notes Pt aware of MM message. She denies questions, needs or concerns at this time. Samantha Mcmahan RN ----- Message from Daksha Bridges PA-C sent at 10/26/2023 8:01 AM EST ----- Please call with normal iron levels documented in this encounter [facility] 10-23-2023 Note HNO ID: [id number] Author: Daksha Bridges PA-C Service: ? Author Type: Physician Lumber Straightened Type: Progress Notes Filed: 10/23/2023 3:25 PM Note Text: PATIENT NAME: Anh Tejeda [facility] NO.: [id number] ATTENDING PHYSICIAN: Henry Walker MD DATE OF SERVICE: May 01, [...] (mg/dL) Date Value (more content not included)... [facility] 10-20-2023 Evaluation note Encounter Date Diagnosis [...] fit. A prescription was sent to the [facility] for new supplies throughout the year. She [...] have anemia, she is currently seeing a field training agent and has needed some blood transfusion. They are currently managing this and she may need to see a data mining analyst for kidney issues. Discussed c pt that [...] in a timely fashion. Do not smoke [employer] Other 09-11-2023 Miscellaneous Notes* Telephone Encounter - [...] with normal iron studies [facility] NoteHNO ID: [id number] Author: Daksha Bridges PA-C Service: ? Author Type: Physician Lumber Straightened Type: Progress Notes Filed: 07/24/2023 2:26 PM Note Text: PATIENT NAME: Anh [facility] NO.: [id number] ATTENDING PHYSICIAN: Henry Walker MD DATE OF SERVICE: May 01, [...] 07/24/2023 7.0 Albumin ( (more content not included)...[facility]09-08-2023 Miscellaneous Notes* Telephone Encounter - Herminia Diaz RN - 07/24/2023 3:19 PM EDT Call made to Dr. Matta's office. Office was closed for the weekend. Left message on [employer] with message. Labs faxed as requested. Herminia [...] sooner. Daksha Bridges PA-C [facility] Nurse Note* Beverly Reza MA - 07/24/2023 2:01 PM EDT Patient states that she has been very tired but her neuropathy have been bothering her. Beverly Marcus MA documented in this encounter[facility] History of Present illness Narrative* Daksha Bridges PA-C - 07/24/2023 2:00 PM EDT PATIENT NAME: Anh Tejeda [facility] NO.: [id number] ATTENDING PHYSICIAN: Henry Walker MD DATE OF SERVICE: May 01, [...] Take 1 tablet by mouth once daily. JEN ADAN, 100 % pste APPLY A [...] Range Status 07/24/2023 5.9 % Final Abs Quay Date Value Ref Range Status 07/24/2023 0.39 [...] CC: Nisa Miranda CNP documented in this encounter[facility] Miscellaneous Notes* Telephone Encounter - Karlie [...] does not need iron. documented in this encounter[facility]23 NoteHNO ID: [id number] Author: Daksha Bridges PA-C Service: ? Author Type: Physician Lumber Straightened Type: Progress Notes Filed: 05/01/2023 2:21 PM Note Text: PATIENT NAME: Anh Tejeda [facility] NO.: [id number] ATTENDING PHYSICIAN: Henry Walker MD DATE OF SERVICE: May 01, [...] last visit she did have [place] [facility] [place] for syncope and UTI. [...] a colonoscopy a few weeks ago at [facility]. I do not have any of these [...] 05/01/2023 149 Potassium (mmol/L) (more content not included)...[facility] 05-01-2023 History of Present illness Narrative* Daksha Bridges PA-C - 05/01/2023 2:00 PM EDT PATIENT NAME: Anh Tejeda [facility] NO.: [id number] ATTENDING PHYSICIAN: Henry Walker MD DATE OF SERVICE: May 01, [...] last visit she did have admission [place] [facility] [place] and UTI. She [...] a colonoscopy a few weeks ago at [facility]. I do not have any of these [...] Range Status 05/01/2023 6.0 % Final Abs Quay Date Value Ref Range Status 05/01/2023 0.44 [...] in 3 months. Will request records from [facility] colonoscopy as well. Chronic kidney disease stage 3b--likely secondary to diabetes. Referral to nephrology recommended and she wishes to discuss to PCP Daksha Bridges PA-C CC: Nisa Miranda CNP documented in this encounterProm[facility] Consult note Author Krissy Easton [facility] March 12, 2023 5:33pm Note Date/Time March 12, 2023 11: 16am [facility] [address] [place] [address] Neurology Consult Note Signed Patient: Anh Tejeda MR#: [id number] : 1950 Acct:[id number] Age/Sex: 72 / F Adm Date: 3 Loc: Room: [address] [place] [address] Type: ADM IN Attending Dr: Kimberly Arteaga MD Copies to: DO Queta Rubio, MD Krissy Severino,~ HPI Consult Date: 03/12/23 Senior Financial: ISAMAR Amato with Dr. Easton Reason for [...] and ulnar nerve compression CEREBELLAR EXAM: * Kylkze-gk-cmfo and alternating movements are intact and normal in bilateral upper extremities * Khph-fs-yukb and alternating movements are intact and normal in lower extremities. She has difficulty with phmf-lj-kcji using the right lower extremity due to [...] of dysmetria with good rapid alternating movements ynkurx-id-ufor Tone is physiologic Deep tendon reflexes are [...] Riki Garnica M.D.03/12/2023 8:58 AM Dictation Location: [place] [address] Therapy Recommendations Therapy Recommendations: ST Recommendations Liquid [...] care and confirmed this with the Fellow/Nurse Practitioner/Resident/Orange Picker/Physician Lumber Straightened as noted below. 72 year old female [...] 1733 <Electronically signed by DENISE Prieto> 03/12/23 [address] [facility] Work Phone: 1(836) 764-122904-27-2023 Progress note Author Kimberly Arteaga [facility] March 12, 2023 4:35pm Note Date/Time March 12, 2023 4:3 2pm [facility] [address] [place] [address] Hospitalist Progress Note Signed Patient: Anh Tejeda MR#: [id number] : 1950 Acct:[id number] Age/Sex: 72 / F Adm Date: 3 Loc: 3T Room: 2V8092-3 Type: ADM IN Attending Dr: Kimberly Arteaga [...] Insuln.Pen SUBCUT 03/11/24 16:59 Not Given TID.WM.HS [facility] Protocol Metoprolol Tartrate 50 mg 03/12/23 09:00 03/12/23 08:55 Metoprolol Tartrate 50 Mg Tablet PO 03/11/24 08:59 50 mg BID VADLEZ Administration Pantoprazole Sodium 40 mg 03/12/23 09:00 03/12/23 08:55 Pantoprazole 40 Mg Tablet. PO 03/11/24 08:59 40 mg DAILY VALDEZ [...] prolonged clearance. Documented By: Kimberly Arteaga MD 03/12/231623 Signed By: <Electronically signed by Kimberly Arteaga MD> 03/12/23 57[address] [facility] Work Phone: 1(903) 916-614404-26-2023 History and physical note Author Kimberly Arteaga [facility] March 11, 2023 7:01pm Note Date/Time March 11, 2023 6:4 6pm [facility] [address] [place] [address] Hospitalist H&P Signed with Panfilo Patient: Anh Tejeda MR#: [id number] : 1950 Acct:[id number] Age/Sex: 72 / F Adm Date: 3 Loc: Room: [address] [place] [address] Type: ADM IN Attending Dr: Kimberly Arteaga [...] negative unless noted below or in HPI PMFSH Vaccinated for COVID-19?: Yes Medical History (Updated [...] surgical procedure on eye proper using laser mraie eyes Family History Father Cancer Mother Diabetes [...] % (Auto) 24.2 % (.) 03/11/23 15:41 Quay % (Auto) 6.1 % (.) 03/11/23 15:41 Eos % (Auto) 1.4 % (.) 03/11/23 15:41 Baso % (Auto) 0.4 % (.) 03/11/23 15:41 Nucleat RBC Rel Count 0.1 /100 WBC (0-0.5) 03/11/23 15:41 Neut # (Auto) 3.9 x10E3/uL (1.8-7.7) 03/11/23 15:41 Lymph # (Auto) 1.4 x10E3/uL (1.00-4.8) 03/11/23 15:41 Quay # (Auto) 0.3 x10E3/uL (0.0-0.8) 03/11/23 15:41 [...] pH 5.0 (5.0-9.0) 03/11/23 16:48 Ur Specific [place] 1.020 (1.001-1.030) 03/11/23 16:48 Urine Protein Negative [...] stroke. Documented By: Kimberly Arteaga MD 03/11/23 6284 Signed By: <Electronically signed by Kimberly Arteaga MD> 03/11/23 [address] [facility] Work Phone: [phone]) 396-243203-27-2023 Miscellaneous Notes* Telephone Encounter - Sonia Rg RN - 02/09/2023 12:49 PM EDT Informed pt of Daksha's message. Pt verbalized understanding and denies further needs at this time. Sonia Rg RN * Telephone Encounter - Sonia Rg RN - 02/09/2023 12:48 PM EDT ----- Message from Daksha Bridges PA-C sent at 02/09/2023 7:43 AM EDT ----- Please call with normal iron labs documented in this encounterProm[facility] History of Present illness Narrative* Daksha Bridges PA-C - 02/06/2023 2:30 PM EDT PATIENT NAME: Anh [facility] NO.: [id number] ATTENDING PHYSICIAN: Henry Walker MD DATE OF SERVICE: February 06, [...] little better. Current Outpatient Medications Medication Sig LOCO, HONEY, 100 % pste APPLY A THIN [...] Range Status 02/06/2023 5.7 % Final Abs Quay Date Value Ref Range Status 02/06/2023 0.37 [...] CC: Nisa Miranda CNP documented in this encounterProm[facility] Hospital Discharge instructions Patient Education 12/24/2022 [...] powder, vinegar, hot sauces, and barbecue sauce. ?[place] fruit juices and citrus fruits, such as oranges, myron, and limes. ?Tomato-based foods, such as red sauce, chili, salsa, and pizza with red sauce. ?Fried and fatty foods, such as donuts, cambodian fries, potato chips, and high-fat dressings. ?High-fat [...] to any changes in your symptoms. Take rcqi-tvg-hybtgsj and prescription medicines only as told by [...] you have new or worsening symptoms. Take otfo-yfu-nliytfh and prescription medicines only as told by [...] 08/12/2006 Document Revised: 05/11/2019 Document Reviewed: 05/11/2019 WISHI Patient Education 2020 Ziptr. 12/24/2022 10:15:21 Gastroesophageal Reflux Disease, Adult Gastroesophageal [...] powder, vinegar, hot sauces, and barbecue sauce. ?[place] fruit juices and citrus fruits, such as oranges, myron, and limes. ?Tomato-based foods, such as red sauce, chili, salsa, and pizza with red sauce. ?Fried and fatty foods, such as donuts, cambodian fries, potato chips, and high-fat dressings. ?High-fat [...] to any changes in your symptoms. Take vxcu-lyt-jcbfqmp and prescription medicines only as told by [...] you have new or worsening symptoms. Take scfc-ceg-zpsqbgn and prescription medicines only as told by [...] 08/12/2006 Document Revised: 05/11/2019 Document Reviewed: 05/11/2019 WISHI Patient Education 2020 Ziptr. Follow Up Care 09/19/2022 13:04:08 With:Nisa Miranda CNP Address: When:3 months [facility] 01-30-2023 Miscellaneous Notes* Telephone Encounter - Sonia Rg RN - 12/15/2022 2:30 PM EST Informed pt of Daksha's message. Pt verbalized understanding and denies further needs at this time. Sonia Rg RN * Telephone Encounter - Sonia Rg RN - 12/15/2022 9:36 AM EST ----- Message from Daksha Bridges PA-C sent at 12/15/2022 8:11 AM EST ----- Please call with normal iron stores. Keep appointments as scheduled documented in this encounterProm[facility] History of Present illness Narrative* Daksha Bridges PA-C - 12/12/2022 3:00 PM EST PATIENT NAME: Anh [facility] NO.: [id number] ATTENDING PHYSICIAN: Henry Walker MD DATE OF SERVICE: December 12, [...] HISTORY Procedure Laterality Date COLONOSCOPY EGD W/O [facility] SPEC VARICIES INJ FAMILY HISTORY Problem Relation [...] 12/12/2022 1.24 1.00 - 4.00 k/uL Final Quay% Date Value Ref Range Status 12/12/2022 5.0 % Final Abs Quay Date Value Ref Range Status 12/12/2022 0.28 [...] CC: Nisa Miranda CNP documented in this encounterPromedica [facility]12-07-2022 History of Present illness Narrative* MAGUE Bean - 10/22/2022 9:46 AM EST Patient appears on the [facility] First Time Treatment List for a non-oncology treatment. No psychosocial assessment is indicated. ALIA Bean documented in this encounterPromedica [facility]12-01-2022 History of Present illness Narrative* Daksha Bridges PA-C - 10/16/2022 10:30 AM EST PATIENT NAME: Anh Nikhil [facility] NO.: [id number] ATTENDING PHYSICIAN: Henry Walker MD DATE OF SERVICE: October 17, [...] 10/01/2022 1.07 1.00 - 4.00 k/uL Final Quay% Date Value Ref Range Status 10/01/2022 4.6 % Final Abs Quay Date Value Ref Range Status 10/01/2022 0.25 [...] CC: Nisa Miranda CNP documented in this encounterPromedica [facility]11-30-2022 Miscellaneous Notes* Telephone Encounter - Suzette Moreno Joycelyn [facility] - 10/15/2022 10:08 AM EST Patient on 1st time treatment report-non oncology regimen (venofer) Patient holds medicare coverageand no FA available for this treatment. documented in this encounterPromedica [facility]11-29-2022 Evaluation note* Encounter Date Diagnosis Assessment Notes Treatment Notes Treatment Clinical Notes Sep, Obstructive sleep apnea (ICD-10 - G47.33) Fortunately, the patient is using and benefiting from treatment. Download was reviewed with patient, Current pressure is controlling apnea well, And we will make no changes at this time. A prescription was sent to the [facility] for new supplies throughout the year. She [...] in a timely fashion. Do not smoke [employer] Other 11-25-2022 History of Present illness Narrative* MAGUE Bean - 10/10/2022 9:09 AM EST Patient appears on the First Time Treatment List for a non-oncology treatment. No psychosocial assessment is indicated. ALIA Bean documented in this encounterPromedica [facility]11-21-2022 Miscellaneous Notes* Telephone Encounter - Rudy Carbajal - 10/06/2022 9:23 AM EST Patient has been scheduled for 10/16. Call placed to patient and had to leave a message on her voicemail to let her know to expect an Iron infusion after her appointment with Dr. Walker. Rudy Carbajal * Telephone Encounter - Henry Walker MD - 10/03/2022 6:51 PM EST Order placed * Telephone Encounter - Mony Jacinto RN - 10/03/2022 5:09 PM EST Spoke with pt and she is agreeable to IV iron. Please call pt to schedule. Thanks Mony Jacinto RN * Telephone Encounter - Mony Jacinto RN - 10/03/2022 5:08 PM EST ----- Message from Henry Walker MD sent at 10/03/2022 4:24 PM EST ----- Please let her know that her Iron levels are low and that she will need IV iron and if she is OK with us arranging for it documented in this encounterPromedica Toledo Hospital11-16-2022 History of Present illness Narrative* Henry Walker MD - 10/01/2022 11:47 AM EST PATIENT NAME: Anh Tejeda [facility] NO.: [id number] ATTENDING PHYSICIAN: Henry Walker MD DATE OF SERVICE: October 01, [...] HISTORY Procedure Laterality Date COLONOSCOPY EGD W/O [facility] SPEC VARICIES INJ FAMILY HISTORY Problem Relation [...] to contact me at the number below. Henry Walekr M.D. Hematology/Medical Oncology [facility] [phone] CC: Nisa Miranda, ENDOSCOPY NURSE documented in this encounterPromedica Toledo Hospital10-18-2022 Evaluation + Plan note Future Scheduled Tests Laboratory* B-Type Natriuretic Peptide 09/02/22 * TIBC Calculated 04/23/22 * Ferritin 04/23/22 * Folate Level 04/23/22 * Hepatic Function Panel 04/23/22 * Iron Level 04/23/22 * Magnesium Level 02/04/23 * Reticulocyte Count 04/23/22 * Vitamin B12 Level 04/23/22 [facility]07[facility] Hospital Discharge instructions Patient Education 06/12/2022 [...] unsweetened, w/added ascorbic acid 1 cup 0.5 [place] 1 cup 0.7 Vegetables Cooked Green beans 1 cup 4.0 Carrots 1/2 cup sliced 2.3 Peas 1 cup 8.8 Potato (baked, with skin) 1 medium potato 3.8 Raw [place] (with peel) 1 cucumber 1.5 Lettuce 1 [...] 8.7 Peanuts 1/2 cup 7.[address] [facility]. SEEK IMMEDIATE MEDICAL CARE IF: You [...] http://www.nal.usda.gov/fnic/foodcomp/search/. Information adapted from: ExitCare Patient Information 2010 [employer]. Victoria Plumb 2013 http://www.Priceza/contents/rkqvxquwryvq-iqsakhv-mxtchk-the-basics 06/12/2022 09:13:55 Colon Polyps Colon Polyps Polyps [...] 07/29/2005 Document Revised: 02/17/2019 Document Reviewed: 02/17/2019 WISHI Patient Education 2020 [employer]. 06/12/2022 09:13:55 Colonoscopy, Care After Surgery Salam [...] day. 06/12/2022 09:13:55 Endoscopy, Care After Procedure [facility] Endoscopy Care After Procedure Please read the instructions outlined below and refer to this sheet in the next few weeks. These discharge instructions provide you with general information on [facility] Your doctor may also give you specific [...] Document Re-Released: 04/26/2007 ExitCare Patient Information 2009 [employer]. Follow Up Care 04/23/2022 14:07:59 With:Jason RUSSELL Address: [address] [place] [address] Business (1) When:1 to 2 weeks Comments:Call for any problems. [facility] Kimberly Arteaga [facility] March 13, 2023 1:09pm Note Date/Time March 13, 2023 1:0 8pm [facility] [address] [place] [id number] Discharge Summary Signed Patient: Anh Tejeda MR#: [id number] : 1950 Acct:[id number] Age/Sex: 72 / F Adm Date: 3 Loc: Room: [address] [place] [address]: Kimberly Arteaga MD Copies to: [...] % (Auto) 62.5, Lymph % (Auto) 28.5, Quay % (Auto) 6.9, Eos % (Auto) 1.7, Baso % (Auto) 0.4, Nucleat RBC Rel Count 0.1, Neut # (Auto) 3.1, Lymph # (Auto) 1.4, Quay # (Auto) 0.3, Eos # (Auto) 0.1, Baso # (Auto) 0.0 03/13/23 05:13: PHA Creatinine Clear 39.70, Sodium 141, Potassium , Chloride 103, Carbon Dioxide 29.6, Anion Gap TNP, BUN 28 H, Creatinine 1.35 H, Est GFR (CKD- EPI) 41.239, Glucose 130 H, Calcium 8.5 L 03/12/23 20:40: POC Glucose 303 04/27/23 16:12: POC Glucose 103 Exam Physical Exam [...] <Electronically signed by Kimberly Arteaga MD> 03/13/23 1309 [facility] Work Phone: Evaluation + Plan note Future Appointments Appointment Date:06/12/2022 08:45:00 AM Scheduled Provider: Location:[facility] Appointment Type:Surgery FT Appointment Date:08/18/2022 11:45:00 AM Scheduled Provider:Jose Carlos Mattson MD Location:FT[facility]iology [facility] Appointment Type:Cardiology Follow Up (FT) Future Scheduled Tests Laboratory* TIBC Calculated 04/23/22 * Ferritin 04/23/22 * Folate Level 04/23/22 * Hepatic Function Panel 04/23/22 * Iron Level 04/23/22 * Reticulocyte Count 04/23/22 * Vitamin B12 Level 04/23/22 [facility] Evaluation + Plan note Future Appointments Appointment Date:08/18/2022 11:45:00 AM Scheduled Provider:Jose Carlos Mattson MD Location:FT[facility]Cardiology Clinic Appointment Type:Cardiology Follow Up (FT) Future Scheduled Tests Laboratory* TIBC Calculated 04/23/22 * Ferritin 04/23/22 * Folate Level 04/23/22 * Hepatic Function Panel 04/23/22 * Iron Level 04/23/22 * Reticulocyte Count 04/23/22 * Vitamin B12 Level 04/23/22 [facility]ments Appointment Date:09/19/2022 12:20:00 PM Scheduled Provider:Nisa Miranda CNP Location:[facility] Appointment Type:[facility] Follow Up Future Scheduled Tests Laboratory* B-Type Natriuretic Peptide 09/02/22 * TIBC Calculated 04/23/22 * Ferritin 04/23/22 * Folate Level 04/23/22 * Hepatic Function Panel 04/23/22 * Iron Level 04/23/22 * Reticulocyte Count 04/23/22 * Vitamin B12 Level 04/23/22 [facility] Appointments Appointment Date:12/24/2022 10:20:00 AM Scheduled Provider:Nisa Miranda CNP Location:[facility] Appointment Type:[facility] Follow Up Future Scheduled Tests Laboratory* B-Type Natriuretic Peptide 09/02/22 * TIBC Calculated 04/23/22 * Ferritin 04/23/22 * Folate Level 04/23/22 * Hepatic Function Panel 04/23/22 * Iron Level 04/23/22 * Reticulocyte Count 04/23/22 * Vitamin B12 Level 04/23/22 [facility] Appointments Appointment Date:02/03/2023 10:00:00 AM Scheduled Provider: Location:.[facility] Appointment Type:US Abdominal/Pelvis () Appointment Date:03/23/2023 09:20:00 AM Scheduled Provider:Nisa Miranda CNP Location:[facility] Appointment Type:[facility] Follow Up Future Scheduled Tests Laboratory* [...] 02/03/23 * NM Gastric Emptying Study 12/24/22 [facility] Evaluation + Plan note Future Appointments Appointment Date:02/03/2023 10:00:00 AM Scheduled Provider: [facility] Type:US Abdominal/Pelvis () Appointment Date:03/23/2023 09:20:00 AM Scheduled Provider:Nisa Miranda CNP Location:[facility] Appointment Type:[facility] Follow Up Future Scheduled Tests Laboratory* [...] B12 Level 12/24/22 Radiology* US Liver 02/03/23 [facility] Future Appointments Appointment Date:04/22/2023 10:00:00 AM Scheduled Provider: Location:[facility] Services Appointment Type:Surgery FT Future Scheduled Tests Laboratory* B-Type Natriuretic Peptide 09/02/22 * TIBC Calculated 04/23/22 * Ferritin 04/23/22 * Folate Level 04/23/22 * Hepatic Function Panel 04/23/22 * Iron Level 04/23/22 * Magnesium Level 02/04/23 * Reticulocyte Count 04/23/22 * Vitamin B12 Level 04/23/22 [facility] Evaluation + Plan note Future Appointments Appointment Date:01/28/2024 09:00:00 AM Scheduled Provider: Location:.[facility] Appointment Type:US Abdominal/Pelvis () Appointment Date:02/29/2024 09:20:00 AM Scheduled Provider:Nisa Miranda CNP Location:[facility] Appointment Type:[facility] Follow Up Future Scheduled Tests Laboratory* HCV RNA by PCR, Qn Rfx Arlet 12/08/23 * Bmpsf-[id number] 12/08/23 * Ceruloplasmin 12/08/23 * Antimitochondrial Antibody, [...] * Transferrin 12/08/23 Radiology* US Liver 01/28/24 [facility] Evaluation + Plan note Future Appointments Appointment Date:02/29/2024 09:20:00 AM Scheduled Provider:Nisa Miranda CNP Location:[facility] Appointment Type:[facility] Follow Up Diagnostic Tests Pending * [id number] 01/28/24 * MAXX w/Reflex if POS 01/28/24 * Antimitochondrial Antibody, Quantitative 01/28/24 * Celiac Disease Comprehensive 01/28/24 * Ceruloplasmin 01/28/24 * HBV Core Ab 01/28/24 * HCV Antibody RFX to Quant PCR 01/28/24 * HCV Genotyping Non Reflex 01/28/24 * HCV RNA by PCR, Qn Rfx Arlet 01/28/24 * Hepatitis B Surface Antibody 01/28/24 * Hepatitis B Surface Antigen 01/28/24 * HIV Screen 4th Generation wRfx 01/28/24 * Smooth Muscle Antibody Screen 01/28/24 Future Scheduled Tests Laboratory* Magnesium Level 02/04/23 [facility] App[facility]ments Appointment Date:02/29/2024 09:20:00 AM Scheduled Provider:Nisa Miranda CNP Location:[facility] Appointment Type:[facility] Follow Up Future Scheduled Tests Laboratory* Magnesium Level 02/04/23 [facility] Future Appointments Appointment Date:09/29/2024 09:45:00 AM Scheduled Provider:Verónica Ugarte MD Location:[facility] Appointment Type:BAD Follow Up [facility] Evaluiszav noteNo assessment information available [facility] Work Phone: evaluation note* Diagnosis Anemia, unspecified type- Primary [facility] [place] [facility] Diagnosis Iron deficiency anemia due to chronic blood loss Iron deficiency anemia secondary to blood loss (chronic) [facility] [place] [facility] Diagnosis Anemia, unspecified type- Primary Iron deficiency anemia secondary to inadequate dietary iron intake [facility] [place] [facility]* Diagnosis Iron deficiency anemia due to chronic blood loss- Primary Iron deficiency anemia secondary to blood loss (chronic) [facility] [place] [facility]* Diagnosis Iron deficiency anemia due to chronic blood loss- Primary Iron deficiency anemia secondary to blood loss (chronic) documented [facility] [place] [facility]* Diagnosis Iron deficiency anemia due to chronic blood loss- Primary Iron deficiency anemia secondary to blood loss (chronic) [facility] [place] [facility]* Diagnosis Iron deficiency anemia secondary to inadequate dietary iron intake- Primary [facility] [place] [facility]* Diagnosis Iron deficiency anemia secondary to inadequate dietary iron intake- Primary [facility] [place] [facility]* Diagnosis Onset Date Resolution Status Acute UTI acute Chronic kidney disease, stage III (moderate) acute Diabetes acute Hypertensive urgency acute Paresthesias in right hand a cute Slurred speech acute Syncope acute [facility] Work Phone: evaluation note* Diagnosis Iron deficiency anemia secondary to inadequate dietary iron intake- Primary Stage 3b chronic kidney disease (HCC) [facility] [place] [facility]* Diagnosis Iron deficiency anemia secondary to inadequate dietary iron intake- Primary Stage 3b chronic kidney disease (HCC) [facility] [place] [facility]* Diagnosis Stage 3b chronic kidney disease (HCC)- Primary Iron deficiency anemia secondary to inadequate dietary iron intake [facility] [place] [facility]* Diagnosis Iron deficiency anemia due to chronic blood loss- Primary Iron deficiency anemia secondary to blood loss (chronic) documented [facility] [place] [facility]* Diagnosis Iron deficiency anemia due to chronic blood loss- Primary Iron deficiency anemia secondary to blood loss (chronic) documented in this encounter [facility] general Narrative - Reported* Type Description Date Medical History Gastroesophageal ref lux disease, esophagitis presence not specified Medical History RLS (restless legs syndrome) Medical History Benign essential HTN Medical History Hypercholesterolemia Medical History Type 2 diabetes jonathan itus without complication, without long-term current use of insulin Medical History COLTEN (obstructive sleep apnea) Surgical History hysterectomy Surgical History cholecystectomy Surgical History knee arthroscopy [employer] Other Hospital course Narrative No data available for this section [facility] Hospital Discharge instructions No data available for this section [facility] Progress note No data available for this section [facility] Advance Directives No Advanced Directives Records [...] over 90 Minutes, ONCE, 1 dose, On [facility] 10/16/22 at 1100, Please conduct a 30 [...] over 90 Minutes, ONCE, 1 dose, On [facility] 10/23/22 at 1400, Please conduct a 30 [...] over 90 Minutes, ONCE, 1 dose, On [facility] 10/30/22 at 1330, Please conduct a 30 [...] Diabetes mellitus Unknown brother Multiple sclerosis Unknown Relationship Condition Age at Onset Recorded Date/T elsie father Malignant neoplasm Unknown Not Specified Diabetes mellitus Unknown Congestive heart failure Unknown Chronic obstructive pulmonary disease Unk nown Malignant neoplasm Unknown Cerebrovascular accident (CVA) Unknown brother Diabetes mellitus Unknown brother Multiple sclerosis Unknown father Unknown Not Specified Unknown Summary Purpose Additional Source Comments Care Team (unrecognized sect ion and content) Team Status: Inactive Member Role Status Dates Vinay Matta , DO Primary Care Provider, Attending Edgar manzo Active Team Status: Inactive Member Role Status Dates Vinay Matta , DO Primary Care Provider, Referring Edgar manzo Active Referral Self Attending Provider Active Team Status: Active Member Role Status Dates Vinay Matta , DO Primary Care Provider Active Team Status: Inactive Member Role Status Dates Vinay Matta , DO Primary Care Provider Active Anand Yusuf PA-C Emergency Provider Active Team Status: Inactive Member Role Status Dates Vinay Matta , DO Primary Care Provider Active Anand Yusuf PA-C Attending Provider Active Certified Shorthand Reporter Relationship Specialty Start Date End Date Nisa Miranda CNP [address] [place] [address] PCP - General Family Medicine 09/22/22 Certified Shorthand Reporter Relationship Specialty Start Date End Date Nisa Miranda CNP [address] [place] [address] PCP - General Family Medicine 09/22/22 Certified Shorthand Reporter Relationship Specialty Start Date End Date Nisa Miranda CNP [address] [place] [address] PCP - General Family Medicine 09/22/22 Certified Shorthand Reporter Relationship Specialty Start Date End Date Nisa Miranda CNP [address] [place] [address] PCP - General Family Medicine 09/22/22 Team Status: Inactive Member Role Status Dates Vinay Matta , DO Primary Care Provider Active Anh Delcid NP Attending Provider Active Certified Shorthand Reporter Relationship Specialty Start Date End Date Nisa Miranda CNP [address] [place] [address] PCP - General Family Medicine 09/22/22 Certified Shorthand Reporter Relationship Specialty Start Date End Date Nisa Miranda CNP [address] [place] [address] PCP - General Family Medicine 09/22/22 Certified Shorthand Reporter Relationship Specialty Start Date End Date Nisa Miranda CNP [address] [facility] [place] [address] PCP - General Family Medicine 09/22/22 Certified Shorthand Reporter Relationship Specialty Start Date End Date Nisa Miranda CNP [address] [place] [address] PCP - General Family Medicine 09/22/22 Certified Shorthand Reporter Relationship Specialty Start Date End Date Nisa Miranda CNP [address] [place] [address] PCP - General Family Medicine 09/22/22 Certified Shorthand Reporter Relationship Specialty Start Date End Date Nisa Miranda CNP [address] [place] [address] PCP - General Family Medicine 09/22/22 Team Status: Inactive Member Role Status Dates Vinay Matta , DO Primary Care Provider Active Rafael Edouard MD Attending Provider Active Certified Shorthand Reporter Relationship Specialty Start Date End Date Nisa Miranda CNP [address] [place] [address] PCP - General Family Medicine 09/22/22 Team Status: Inactive Member Role Status Dates Vinay Matta , DO Primary Care Provider Active Lamin Rose MD Emergency Provider Active Kimberly Arteaga MD Admit Provider, Attending Provider Active Krissy Easton , Other Provider Active Team Status: Active Member Role Status Dates Vinay Matta , DO Primary Care Provider Active LINDY Amato Attending Provider Active Team Status: Inactive Member Role Status Dates Vinay Matta , DO Primary Care Provider Active LINDY Amato Attending Provider Active Certified Shorthand Reporter Relationship Specialty Start Date End Date Nisa Miranda CNP [address] [place] [address] PCP - General Family Medicine 09/22/22 Certified Shorthand Reporter Relationship Specialty Start Date End Date Nisa Miranda CNP [address] [place] [address] PCP - General Family Medicine 09/22/22 Certified Shorthand Reporter Relationship Specialty Start Date End Date Nisa Miranda CNP [address] [place] [address] PCP - General Family Medicine 09/22/22 Certified Shorthand Reporter Relationship Specialty Start Date End Date Nisa Miranda CNP [address] [place] [address] PCP - General Family Medicine 09/22/22 Certified Shorthand Reporter Relationship Specialty Start Date End Date Nisa Miranda CNP [address] [place] [address] PCP - General Family Medicine 09/22/22 Certified Shorthand Reporter Relationship Specialty Start Date End Date Nisa Miranda CNP [address] [place] [address] PCP - General Family Medicine 09/22/22 Certified Shorthand Reporter Relationship Specialty Start Date End Date Nisa Miranda CNP [address] [place] [address] PCP - General Family Medicine 09/22/22 Team Status: Inactive Member Role Status Dates Vinay Matta , DO Primary Care Provide r, Attending Provider Active Start: February 11, 2024 End: February 11, 2024 Certified Shorthand Reporter Relationship Specialty Start Date End Date Nisa Miranda CNP [address] [place] [address] PCP - General Family Medicine 09/22/22 Certified Shorthand Reporter Relationship Specialty Start Date End Date Nisa Miranda CNP [address] [place] [address] PCP - General Family Medicine 09/22/22 Goals [...] or prosecute any alcohol or drug abuse patient.[facility] the event this information is protected by the Federal Confidentiality of Alcohol and Drug Abuse Patient Records regulations: The Federal rules restrict any use of the information to criminally investigate or prosecute any alcohol or drug abuse patient.[facility] the event this information is protected by the Federal Confidentiality of Alcohol and Drug Abuse Patient Records regulations: The Federal rules restrict any use of the information to criminally investigate or prosecute any alcohol or drug abuse patient.[facility] the event this information is protected by the Federal Confidentiality of Alcohol and Drug Abuse Patient Records regulations: The Federal rules restrict any use of the information to criminally investigate or prosecute any alcohol or drug abuse patient.[facility] the event this information is protected by the Federal Confidentiality of Alcohol and Drug Abuse Patient Records regulations: The Federal rules restrict any use of the information to criminally investigate or prosecute any alcohol or drug abuse patient.[facility] the event this information is protected by the Federal Confidentiality of Alcohol and Drug Abuse Patient Records regulations: The Federal rules restrict any use of the information to criminally investigate or prosecute any alcohol or drug abuse patient.[facility] the event this information is protected by the Federal Confidentiality of Alcohol and Drug Abuse Patient Records regulations: The Federal rules restrict any use of the information to criminally investigate or prosecute any alcohol or drug abuse patient.[facility] the event this information is protected by the Federal Confidentiality of Alcohol and Drug Abuse Patient Records regulations: The Federal rules restrict any use of the information to criminally investigate or prosecute any alcohol or drug abuse patient.[facility] the event this information is protected by the Federal Confidentiality of Alcohol and Drug Abuse Patient Records regulations: The Federal rules restrict any use of the information to criminally investigate or prosecute any alcohol or drug abuse patient.[facility] the event this information is protected by the Federal Confidentiality of Alcohol and Drug Abuse Patient Records regulations: The Federal rules restrict any use of the information to criminally investigate or prosecute any alcohol or drug abuse patient.[facility] the event this information is protected by the Federal Confidentiality of Alcohol and Drug Abuse Patient Records regulations: The Federal rules restrict any use of the information to criminally investigate or prosecute any alcohol or drug abuse patient.[facility] Hospital[facility] the event this information is protected by the Federal Confidentiality of Alcohol and Drug Abuse Patient Records regulations: The Federal rules restrict any use of the information to criminally investigate or prosecute any alcohol or drug abuse patient.[facility] Hospital[facility] the event this information is protected by the Federal Confidentiality of Alcohol and Drug Abuse Patient Records regulations: The Federal rules restrict any use of the information to criminally investigate or prosecute any alcohol or drug abuse patient.[facility] Hospital[facility] the event this information is protected by the Federal Confidentiality of Alcohol and Drug Abuse Patient Records regulations: The Federal rules restrict any use of the information to criminally investigate or prosecute any alcohol or drug abuse patient.[facility] the event this information is protected by the Federal Confidentiality of Alcohol and Drug Abuse Patient Records regulations: The Federal rules restrict any use of the information to criminally investigate or prosecute any alcohol or drug abuse patient.[facility] the event this information is protected by the Federal Confidentiality of Alcohol and Drug Abuse Patient Records regulations: The Federal rules restrict any use of the information to criminally investigate or prosecute any alcohol or drug abuse patient.[facility] the event this information is protected by the Federal Confidentiality of Alcohol and Drug Abuse Patient Records regulations: The Federal rules restrict any use of the information to criminally investigate or prosecute any alcohol or drug abuse patient.[facility] Hospital[facility] the event this information is protected by the Federal Confidentiality of Alcohol and Drug Abuse Patient Records regulations: The Federal rules restrict any use of the information to criminally investigate or prosecute any alcohol or drug abuse patient.[facility] the event this information is protected by the Federal Confidentiality of Alcohol and Drug Abuse Patient Records regulations: The Federal rules restrict any use of the information to criminally investigate or prosecute any alcohol or drug abuse patient.[facility] Hospital[facility] the event this information is protected by the Federal Confidentiality of Alcohol and Drug Abuse Patient Records regulations: The Federal rules restrict any use of the information to criminally investigate or prosecute any alcohol or drug abuse patient.[facility] Hospital[facility] the event this information is protected by the Federal Confidentiality of Alcohol and Drug Abuse Patient Records regulations: The Federal rules restrict any use of the information to criminally investigate or prosecute any alcohol or drug abuse patient.[facility] Hospital[facility] the event this information is protected by the Federal Confidentiality of Alcohol and Drug Abuse Patient Records regulations: The Federal rules restrict any use of the information to criminally investigate or prosecute any alcohol or drug abuse patient.[facility] the event this information is protected by the Federal Confidentiality of Alcohol and Drug Abuse Patient Records regulations: The Federal rules restrict any use of the information to criminally investigate or prosecute any alcohol or drug abuse patient.[facility] the event this information is protected by the Federal Confidentiality of Alcohol and Drug Abuse Patient Records regulations: The Federal rules restrict any use of the information to criminally investigate or prosecute any alcohol or drug abuse patient.[facility] the event this information is protected by the Federal Confidentiality of Alcohol and Drug Abuse Patient Records regulations: The Federal rules restrict any use of the information to criminally investigate or prosecute any alcohol or drug abuse patient.[facility]In the event this information is protected by the Federal Confidentiality of Alcohol and Drug Abuse Patient Records regulations: The Federal rules restrict any use of the information to criminally investigate or prosecute any alcohol or drug abuse patient.[facility] Reason for Visit (unrecogniz ed section and content) Reason Comments Anemia New patient consulta tion Reason Comments Results, Lab Reason Comments Benefits Investigation Reason Comments Anemia Specialty Diagnoses / Procedures Referred By Contac t Referred To Contact Diagnoses Iron deficiency anemia due to chronic blood loss Procedures IRON SUCROSE INJECTION PER 1 MG Henry Walker MD [address] [place] [id number] [address] Treat [address] [place] [address] Referral ID Status Reason Start Date Expiration Date V isits Requested Visits Authorized [id number] Waiting for Response 10/06/2022 01/04/2023 1 1 Referral ID Status Reason Start Date Expiration Date V isits Requested Visits Authorized [id number] Authorized 10/06/2022 11/15/2022 3 3 Reason Comments Results Reason Comments Anemia 1 month follow up Reason Comments Anemia Follow up Reason Comments Anemia 2 month follow up Reason Comments Patient Update Reason Comments Anemia 3 month follow up Reason Comments IV Iron Specialty Diagnoses / Procedures Referred By Contac t Referred To Contact Diagnoses Iron deficiency anemia due to chronic blood loss Procedures IRON SUCROSE INJECTION PER 1 MG Daksha Bridges PA-C [address] [place] [address] [address] Treat [address] [place] [address] Referral ID Status Reason Start Date Expiration Date V isits Requested Visits Authorized [id number] Authorized 02/01/2024 11/15/2024 0 99 INFORMATION SOURCE (unrecogn ized section and content) DATE CREATED AUTHOR 03/30/2023 [facility] DATE CREATED AUTHOR AUTHOR'S ORGANIZ ATION 05/12/2023 [facility] DATE CREATED AUTHOR AUTHOR'S ORGANIZ ATION 02/12/2024 [facility] DATE CREATED AUTHOR AUTHOR'S ORGANIZ ATION 02/26/2024 [facility] DATE CREATED AUTHOR AUTHOR'S ORGANIZ ATION 03/31/2024 [facility] DATE CREATED AUTHOR AUTHOR'S ORGANIZ ATION 04/02/2024 [facility] Inactive Administered Medications - up to 3 most recent administrations Administered Medications (un recognized section and content) Medication Order MAR Action Action Date Dose Rate Site iron sucrose 300 mg in NaCl 0.9% 250 mL (VENOFER) 300 mg, INTRAVENOUS, at 166.67 mL/hr, Administer over 90 Minutes, ONCE, 1 dose, On Thu02/18/24 at 1000, Please conduct a 30 minute post dose observation. Refrigerate New Bag/Syringe/Bottle 02/18/2024 10:13 AM EDT 300 mg 166.67 mL/hr Inactive Administered Medications - up to 3 most recent administrations Medication Order MAR Action Action Date Dose Rate Site iron sucrose 300 mg in NaCl 0.9% 250 mL (VENOFER) 300 mg, INTRAVENOUS, at 166.67 mL/hr, Administer over 90 Minutes, ONCE, 1 dose, On [place] 02/25/24 at 1030, Please conduct a 30 minute post dose observation. Refrigerate New Bag/Syringe/Bottle 02/25/2024 10:18 AM EDT 300 mg 166.67 mL/hr FOR RECORDS PERTAINING TO PATIENTS WHO ARE [...] BE BASED ON THE PRIMARY CLINICAL RECORDS. [employer] [facility]. provides no warranty or guarantee of the accuracy or completeness of information in this document.
--- NOTE | 2024-04-07 01:21 | PC.NURSE ---
patient states she feels like she is getting cramping in her thigh. She states she had a similar episode when her potassium and magnesium were low. Patient is also having back pain that she does not believe is related to the leg cramping
[2024-04-07] MEDS: 0.9 % SODIUM CHLORIDE 1,000 ML 500 ML IV (01:48)
[2024-04-07 01:58] LABS: Basophils Percent Auto 0.2 % (0.2-2.0); Eosinophils Absolute Auto 0.1 10^3/uL (0.0-0.7); Eosinophils Percent Auto 2.4 % (0.9-7.0); Hemoglobin 10.1 g/dL (12.0-16.0); Immature Granulocytes Abs Auto 0.01 10^3/uL (0.00-0.03); Immature Granulocytes Pct Auto 0.2 % (0.0-0.5); Lymphocytes Absolute Auto 1.5 10^3/uL (1.2-3.8); Lymphocytes Percent Auto 31.2 % (20.5-60.0); Mean Corpuscular HGB Conc 32.6 g/dL (29.9-35.2); Mean Corpuscular Hemoglobin 29.7 pg (26.7-34.0); Mean Corpuscular Volume 91.2 fL (81.0-99.0); Mean Platelet Volume 9.3 fL (9.5-13.5); Monocytes Absolute Auto 0.3 10^3/uL (0.3-0.8); Monocytes Percent Auto 6.5 % (1.7-12.0); Neutrophils Absolute Auto 2.9 10^3/uL (1.4-6.5); Neutrophils Percent Auto 59.5 % (43.0-75.0); Platelet Count 130 10^3/uL (150-450); Red Cell Distribution Width 16.5 % (11.0-15.0); White Blood Count 4.9 10^3/uL (4.0-11.0)
[2024-04-07 02:13] LABS: Alanine Aminotransferase 33 U/L (14-59); Albumin Globulin Ratio 1.1; Albumin Level 3.4 g/dL (3.4-5.0); Alkaline Phosphatase 146 U/L (46-116); Anion Gap 9.9; Aspartate Amino Transferase 32 U/L (15-37); BUN Creatinine Ratio 21.5; Bilirubin Total 0.3 mg/dL (0.2-1.0); Calcium 8.5 mg/dL (8.5-10.1); Carbon Dioxide 28.7 mmol/L (21.0-32.0); Chloride 94 mmol/L (98-107); Estimated GFR (African America 27 (>=60); Estimated GFR (Non-African Ame 22 (>=60); Globulin 3.1 g/dL; Glucose 184 mg/dL (74-106); Magnesium 1.1 mg/dL (1.8-2.4); Potassium 3.6 mmol/L (3.5-5.1); Sodium 129 mmol/L (136-145); Total Protein 6.5 g/dL (6.4-8.2)
[2024-04-07] MEDS: MAGNESIUM SULFATE IN WATER 2 GM/50 ML PREMIX IV (02:51)
[2024-04-07 03:20] VITALS: BP 131/69; PULSE 88; O2SAT 93
== END 2024-04-07 03:49 | disposition home or self-care (01) ==
PROVIDERS: Emergency Provider Emergency Medicine; PCP Family Medicine
DX: E87.1 Hypo-osmolality and hyponatremia (principal); E83.42 Hypomagnesemia; R25.2 Cramp and spasm; G89.29 Other chronic pain; M54.50 Low back pain, unspecified; E11.22 Type 2 diabetes mellitus with diabetic chronic kidney disease; N18.9 Chronic kidney disease, unspecified
CPT/HCPCS: 36415; 80053; 81001; 83735; 85025; 96365; 99284; J3475

== ENCOUNTER 2025-01-09 14:27 | Outpatient (OUT) | payer OTHER, SELFPAY ==
--- NOTE | 2025-01-09 15:22 | P.CN_ITS ---
Consult Note: HPI Data of Consult Patient: new to practice Consult date: 01/09/25 Requesting Physician: Tessy Bruner MD Primary Care Provider: VINAY MATTA Consult Narrative Reason for consult: low back pain, bilateral leg weakness Narrative: 74yof who presents for evaluation. longstanding history of low back pain, now notes worsening bilateral leg weakness over past several months. lumbar xr reviewed, significant for multilevel spondylosis and sij degeneration. continues in a series of provider directed home exercises >6 weeks, without lasting benefit. uses gabapentin. denies adverse med side effects. cc:: CC: Tessy Bruner MD Review of Systems ROS Status of ROS 10 or more systems reviewed and unremark able except as noted in history and below PFSH PFSH Social History Smoking status: Never smoker Meds Home Medications and Allergies Home Medications ?Medication ?Instructions ?Recorded ?Confirmed ?Type allopurinol 300 mg tablet 300 mg PO DAILY 01/21/24 04/07/24 History atenolol 50 mg tablet 50 mg PO Q24H 01/21/24 04/07/24 History atorvastatin 20 mg tablet 20 mg PO DAILY 01/21/24 04/07/24 History furosemide 20 mg tablet 20 mg PO DAILY 01/21/24 04/07/24 History gabapentin 300 mg capsule 300 mg PO TID 01/21/24 04/07/24 History glimepiride 2 mg tablet 2 mg PO BID 01/21/24 04/07/24 History lisinopril 20 1 tab PO DAILY 01/21/24 04/07/24 History mg-hydrochlorothiazide 12.5 mg tablet magnesium oxide 400 mg (241.3 mg 400 mg PO DAILY 01/21/24 04/07/24 History magnesium) tablet metformin 1,000 mg tablet 1,000 mg PO BID 01/21/24 04/07/24 History ropinirole 2 mg tablet 2 mg PO DAILY 01/21/24 04/07/24 History sitagliptin phosphate 50 mg tablet 50 mg PO DAILY 01/21/24 04/07/24 History (Januvia) ascorbic acid (vitamin C) 500 mg 500 mg PO DAILY 04/07/24 04/07/24 History chewable tablet (Acerola C) aspirin 81 mg tablet,delayed 81 mg PO DAILY 04/07/24 04/07/24 History release (Adult Low Dose Aspirin) cholecalciferol (vitamin D3) 25 1,000 unit PO DAILY 04/07/24 04/07/24 History mcg (1,000 unit) chewable tablet (VitaJoy Daily D) mecobalamin (vitamin B12) 1,000 1,000 mcg PO DAILY 04/07/24 04/07/24 History mcg chewable tablet Allergies Allergy/AdvReac Type Severity Reaction Status Date / Time codeine AdvReac Intermediate Verified 04/07/24 01:18 Exam Narrative Exam Narrative: Psych-alert and oriented x 3. Attentive and appropriate, constitutionally normal, displays normal mood and affect per situation. There are no obvious deficits in memory, reasoning, or intellect.? Skin-no obvious rashes, bruising, erythema noted to the patient's area of pain.? Extremities- extremities are warm with minimal edema and palpable pulses. Lumbar-tenderness to palpation noted in the lumbar spine and paraspinal musculature. Pain is elicited with flexion, extension, and lateral rotation of the lumbar spine. Range of motion is diminished with these motions. Facet loading maneuvers are positive.? Strength-noted to be unremarkable with the exception of decreased strength rated at 4 out of 5 in bilateral quadriceps femoris, anterior tibialis. Sensory-no notable sensory deficits in the bilateral lower extremities to touch or pinprick in all dermatomal distributions with the exception to decreased sensation to the bilateral L3, 4, 5 dermatomal distribution Coordination remains intact.? Gait remains non-antalgic. Assessment and Plan Assessment and Plan (1) Lumbar stenosis with neurogenic claudication: (2) Lumbar spondylosis: Plan 74yof who presents for evaluation. failed conservative measures, as noted. imaging reviewed, as noted. given symptoms and imaging findings, would like her to undergo lumbar mri without contrast for further info. she is in agreement. meds reviewed, no changes. follow up after imaging.
== END 2025-01-09 14:28 | disposition home or self-care (01) ==
LOC: PM 14:28
PROVIDERS: PCP Family Medicine; Visit Provider Anesthesiology
DX: M48.062 Spinal stenosis, lumbar region with neurogenic claudication (principal); M47.816 Spondylosis without myelopathy or radiculopathy, lumbar region
CPT/HCPCS: G0463

== ENCOUNTER 2025-02-09 09:37 | Outpatient (OUT) | payer OTHER, SELFPAY ==
--- NOTE | 2025-02-09 12:41 | P.CN_ITS ---
Consult Note: HPI Data of Consult Requesting Physician: Janelle Day NP Primary Care Provider: VINAY MATTA Consult Narrative Reason for consult: low back pain, bilateral leg weakness Narrative: 74yof who presents for evaluation. longstanding history of low back pain, now notes worsening bilateral leg weakness over past several months. lumbar xr reviewed, significant for multilevel spondylosis and sij degeneration. continues in a series of provider directed home exercises >6 weeks, without lasting benefit. uses gabapentin. denies adverse med side effects. recent MRI consistent with multilevel ddd, stenosis, and spondylosis. cc:: CC: Janelle Day NP Review of Systems ROS Status of ROS 10 or more systems reviewed and unremark able except as noted in history and below [facility] Medical History (Updated 01/10/25 @ 08:22 by Nohelia Hicks, JAQUAN) Anemia ?D64.9 - Anemia, unspecified (ICD-10) Hearing deficit ?H91.90 - Unspecified hearing loss, unspecified ear (ICD-10) Carpal tunnel syndrome ?G56.00 - Carpal tunnel syndrome, unspecified upper limb (ICD-10) Acid reflux ?K21.9 - Gastro-esophageal reflux disease without esophagitis (ICD-10) Diabetes ?E11.9 - Type 2 diabetes mellitus without complications (ICD-10) Kidney stone ?N20.0 - Calculus of kidney (ICD-10) COLTEN on CPAP ?G47.33 - Obstructive sleep apnea (adult) (pediatric) (ICD-10) Sleep apnea ?G47.30 - Sleep apnea, unspecified (ICD-10) High cholesterol ?E78.00 - Pure hypercholesterolemia, unspecified (ICD-10) Palpitations ?R00.2 - Palpitations (ICD-10) HTN (hypertension) ?I10 - Essential (primary) hypertension (ICD-10) Surgical History (Updated 01/10/25 @ 08:22 by Nohelia Hicks RN) History of eye surgery ?Z98.890 - Other specified postprocedural states (ICD-10) History of carpal tunnel release ?Z98.890 - Other specified postprocedural states (ICD-10) History of hysterectomy ?Z90.710 - Acquired absence of both cervix and uterus (ICD-10) Hx of cholecystectomy ?Z90.49 - Acquired absence of other specified parts of digestive tract (ICD- 10) Social History Smoking status: Never smoker Meds Home Medications and Allergies Home Medications ?Medication ?Instructions ?Recorded ?Confirmed ?Type allopurinol 300 mg tablet 300 mg PO DAILY 01/21/24 04/07/24 History atenolol 50 mg tablet 50 mg PO Q24H 01/21/24 04/07/24 History atorvastatin 20 mg tablet 20 mg PO DAILY 01/21/24 04/07/24 History gabapentin 300 mg capsule 300 mg PO TID 01/21/24 04/07/24 History glimepiride 2 mg tablet 2 mg PO BID 01/21/24 04/07/24 History lisinopril 20 1 tab PO DAILY 01/21/24 04/07/24 History mg-hydrochlorothiazide 12.5 mg tablet magnesium oxide 400 mg (241.3 mg 400 mg PO DAILY 01/21/24 04/07/24 History magnesium) tablet ropinirole 2 mg tablet 2 mg PO DAILY 01/21/24 04/07/24 History sitagliptin phosphate 50 mg tablet 50 mg PO DAILY 01/21/24 04/07/24 History (Januvia) ascorbic acid (vitamin C) 500 mg 500 mg PO DAILY 04/07/24 04/07/24 History chewable tablet (Acerola C) aspirin 81 mg tablet,delayed 81 mg PO DAILY 04/07/24 04/07/24 History release (Adult Low Dose Aspirin) cholecalciferol (vitamin D3) 25 1,000 unit PO DAILY 04/07/24 04/07/24 History mcg (1,000 unit) chewable tablet (VitaJoy Daily D) mecobalamin (vitamin B12) 1,000 1,000 mcg PO DAILY 04/07/24 04/07/24 History mcg chewable tablet omeprazole 20 mg capsule,delayed 20 mg PO DAILY 01/10/25 01/10/25 History release pioglitazone 15 mg tablet 15 mg PO BID 01/10/25 01/10/25 History resmetirom 80 mg tablet (Rezdiffra) 80 mg PO DAILY 01/10/25 01/10/25 History Allergies Allergy/AdvReac Type Severity Reaction Status Date / Time codeine AdvReac Intermediate Verified 04/07/24 01:18 Exam Constitutional Documenting provider has reviewed patient's vital signs: yes Common normals: no apparent distress, oriented x3, healthy appearing, alert and well nourished General appearance: cooperative HENMT Common normals: normocephalic, hearing grossly normal bilaterally and moist oral mucous membranes Head and scalp: normocephalic Eye Common normals: PERRL Pupil: PERRL Neck & C-Spine Common normals: full ROM General: normal visual inspection Chest Common normals: inspection of chest normal Respiratory Common normals: normal respiratory effort, no retractions and no use of accessory muscles Back & Pelvis Lumbar spine/lower back: ROM limited, pain with ROM, lumbar spinal tenderness and straight leg raise positive right; straight leg raise negative left Sacroiliac joints: SI joint(s) abnormal Other: decreased sensation right L4,5,S1 strength 4/5 in RLE 5/5 in LLE increased pain with standing and walking, improved with sitting and forward flexion right sij positive suman(patricks), gaenslens, thigh thrust, compression test Neuro Common normals: oriented x3, CN's II-XII intact bilaterally, moves all extremities, no focal motor deficits, no sensory deficits noted and deep tendon reflexes 2+ bilaterally Sensorium/orientation: alert Motor exam: no movement abnormalities noted Psych Common normals: mental status grossly normal, thought process normal, cooperative, affect normal, speech normal and activity/motor behavior normal Speech: normal speech Thought process: normal thought process Assessment and Plan Assessment and Plan (1) Lumbar stenosis with neurogenic claudication: (2) Lumbar spondylosis: Plan 74yof who presents for evaluation. failed conservative measures, as noted. imaging reviewed, as noted. pt declining NS consultation, is not interested in any surgical procedures. given symptoms and imaging findings, i recommend she un dergo right L4-5 L5-S1 TFESI under fluoroscopy. consider right SIJ injection. start baclofen 5-10mg BID PRN pain/spasms. caution medications with CKD. as discussed the goal of therapeutic ESIs is 50% improvement for 3 months, with multilevel severe changes she may not find significant benefit. f/u 2 weeks after TFESI.
== END 2025-02-09 09:38 | disposition home or self-care (01) ==
LOC: PM 09:38
PROVIDERS: PCP Family Medicine; Visit Provider Nurse Practitioner
DX: M48.062 Spinal stenosis, lumbar region with neurogenic claudication (principal); M47.816 Spondylosis without myelopathy or radiculopathy, lumbar region
CPT/HCPCS: G0463

== ENCOUNTER 2025-02-20 07:36 | Day surgery (SDC) | payer OTHER, SELFPAY ==
[2025-02-20 07:55] VITALS: PULSE 69; TEMP 36.3; O2SAT 97
[2025-02-20 08:01] LABS: Glucometer 259 mg/dL (74-106)
[2025-02-20 08:46] VITALS: BP 154/64; PULSE 72; O2SAT 92
[2025-02-20 08:47] VITALS: BP 158/67; PULSE 68; O2SAT 94
[2025-02-20] MEDS: BUPIVACAINE HCL 0.25% PF 25 MG/10 ML VIAL INJ (08:51)
[2025-02-20] MEDS: 0.9 % SODIUM CHLORIDE 10 ML SYRINGE - SALINE FLUSH INJ (08:51)
[2025-02-20] MEDS: IOHEXOL 240 MG/ML - 10 ML VIAL 24 MG INJ (08:52)
[2025-02-20] MEDS: METHYLPREDNISOLONE ACETATE 80 MG/ML VIAL INJ (08:52)
[2025-02-20] MEDS: LIDOCAINE HCL 2% 400 MG/20 ML MDV 3 ML INJ (08:52)
--- NOTE | 2025-02-20 08:52 | P.ON_ITS ---
Date of procedure: 02/20/25 Pre-op diagnosis: Pain due to lumbar stenosis with neurogenic claudication Post-op diagnosis: same as pre-op Procedure: Procedure: Right L4-5, L5-S1 transforaminal epidural steroid injection Medications: Bupivacaine 0.25% 2cc, lidocaine 2% 1cc, depomedrol 80mg The patient was seen and examined in the preoperative holding area.? Informed consent was obtained and placed on the chart.? Patient was brought to the medical procedure unit and placed in the prone position where a timeout was completed verifying the correct patient, procedure site, position, and planned special equipment using sterile aseptic technique.? Under direct fluoroscopic visualization a 25-gauge Quincke tipped spinal needle was advanced to the designated neural foramen where contrast dye was injected to show adequate spread.? The needle was inserted at level right L4-5. There was no evidence of vascular or adverse uptake.? Epidural spread was appreciated.? The above- mentioned injectate was then placed in a 1.5 mL aliquot preceded by negative aspiration.? The needle was removed. The needle was inserted and the procedure repeated at level right L5-S1.? The surgery site was covered.? Patient was taken to the postprocedural recovery area and monitored for an appropriate length of time before found suitable for discharge in the accompaniment of a responsible adult. Anesthesia: Local Surgeon: Tessy Bruner Pathology: none sent Condition: stable Disposition: no change
== END 2025-02-20 08:58 | disposition home or self-care (01) ==
LOC: SURGOUT 07:40
PROVIDERS: PCP Family Medicine; Visit Provider Anesthesiology
DX: M48.062 Spinal stenosis, lumbar region with neurogenic claudication (principal); M54.50 Low back pain, unspecified; E11.8 Type 2 diabetes mellitus with unspecified complications; Z79.84 Long term (current) use of oral hypoglycemic drugs
CPT/HCPCS: 36415; 64483; 64484; 82948; J0665; J1010; Q9966

== ENCOUNTER 2025-03-01 12:35 | Outpatient (OUT) | payer OTHER, SELFPAY ==
--- NOTE | 2025-03-01 12:58 | P.CN_ITS ---
Consult Note: HPI Data of Consult Patient: known to practice within the last 3 years Requesting Physician: Janelle Day NP Primary Care Provider: VINAY MATTA Consult Narrative Reason for consult: low back pain, bilateral leg weakness Narrative: 74yof who presents for evaluation. longstanding history of low back pain, now notes worsening bilateral leg weakness over past several months. lumbar xr reviewed, significant for multilevel spondylosis and sij degeneration. continues in a series of provider directed home exercises >6 weeks, without lasting benefit. uses gabapentin. denies adverse med side effects. recent MRI consistent with multilevel ddd, stenosis, and spondylosis. recently underwent right L4-5 L5-S1 TFESI with mild relief per pt. cc:: CC: Janelle Day NP Review of Systems ROS Status of ROS 10 or more systems reviewed and unremark able except as noted in history and below Musculoskeletal Reports: back pain; Denies: extremity pain PFSH REPLACED BY [facility] Medical History (Updated 01/10/25 @ 08:22 by Nohelia Hicks RN) Anemia ?D64.9 - Anemia, unspecified (ICD-10) Hearing deficit ?H91.90 - Unspecified hearing loss, unspecified ear (ICD-10) Carpal tunnel syndrome ?G56.00 - Carpal tunnel syndrome, unspecified upper limb (ICD-10) Acid reflux ?K21.9 - Gastro-esophageal reflux disease without esophagitis (ICD-10) Diabetes ?E11.9 - Type 2 diabetes mellitus without complications (ICD-10) Kidney stone ?N20.0 - Calculus of kidney (ICD-10) COLTEN on CPAP ?G47.33 - Obstructive sleep apnea (adult) (pediatric) (ICD-10) Sleep apnea ?G47.30 - Sleep apnea, unspecified (ICD-10) High cholesterol ?E78.00 - Pure hypercholesterolemia, unspecified (ICD-10) Palpitations ?R00.2 - Palpitations (ICD-10) HTN (hypertension) ?I10 - Essential (primary) hypertension (ICD-10) Surgical History History of eye surgery ?Z98.890 - Other specified postprocedural states (ICD-10) History of carpal tunnel release ?Z98.890 - Other specified postprocedural states (ICD-10) History of hysterectomy ?Z90.710 - Acquired absence of both cervix and uterus (ICD-10) Hx of cholecystectomy ?Z90.49 - Acquired absence of other specified parts of digestive tract (ICD- 10) Social History Smoking status: Never smoker Meds Home Medications and Allergies Home Medications ?Medication ?Instructions ?Recorded ?Confirmed ?Type allopurinol 300 mg tablet 300 mg PO DAILY 01/21/24 02/20/25 History atenolol 50 mg tablet 50 mg PO Q24H 01/21/24 02/20/25 History atorvastatin 20 mg tablet 20 mg PO DAILY 01/21/24 02/20/25 History gabapentin 300 mg capsule 300 mg PO TID 01/21/24 02/20/25 History glimepiride 2 mg tablet 2 mg PO BID 01/21/24 02/20/25 History lisinopril 20 1 tab PO DAILY 01/21/24 02/20/25 History mg-hydrochlorothiazide 12.5 mg tablet magnesium oxide 400 mg (241.3 mg 400 mg PO DAILY 01/21/24 02/20/25 History magnesium) tablet ropinirole 2 mg tablet 2 mg PO DAILY 01/21/24 02/20/25 History sitagliptin phosphate 50 mg tablet 50 mg PO DAILY 01/21/24 02/20/25 History (Januvia) ascorbic acid (vitamin C) 500 mg 500 mg PO DAILY 04/07/24 02/20/25 History chewable tablet (Acerola C) aspirin 81 mg tablet,delayed 81 mg PO DAILY 04/07/24 02/20/25 History release (Adult Low Dose Aspirin) cholecalciferol (vitamin D3) 25 1,000 unit PO DAILY 04/07/24 02/20/25 History mcg (1,000 unit) chewable tablet (VitaJoy Daily D) mecobalamin (vitamin B12) 1,000 1,000 mcg PO DAILY 04/07/24 02/20/25 History mcg chewable tablet omeprazole 20 mg capsule,delayed 20 mg PO DAILY 01/10/25 02/20/25 History release pioglitazone 15 mg tablet 15 mg PO BID 01/10/25 02/20/25 History resmetirom 80 mg tablet (Rezdiffra) 80 mg PO DAILY 01/10/25 02/20/25 History baclofen 10 mg tablet 10 mg PO Q12H 02/15/25 02/20/25 History loratadine 10 mg tablet (Claritin) 10 mg PO DAILY 02/20/25 02/20/25 History Allergies Allergy/AdvReac Type Severity Reaction Status Date / Time codeine AdvReac Intermediate gi upset Verified 02/20/25 08:00 Exam Constitutional Documenting provider has reviewed patient's vital signs: yes Common normals: no apparent distress, oriented x3, healthy appearing, alert and well nourished General appearance: cooperative HENMT Common normals: normocephalic, hearing grossly normal bilaterally and moist oral mucous membranes Head and scalp: normocephalic Eye Common normals: PERRL Pupil: PERRL Neck & C-Spine Common normals: full ROM General: normal visual inspection Chest Common normals: inspection of chest normal Respiratory Common normals: normal respiratory effort, no retractions and no use of accessory muscles Back & Pelvis Lumbar spine/lower back: ROM limited, pain with ROM, lumbar spinal tenderness and straight leg raise negative bilaterally Other: sensation intact BLE strength 5/5 in BLE Extremity Common normals: normal to inspection and full ROM Neuro Common normals: oriented x3 Sensorium/orientation: alert Motor exam: no movement abnormalities noted Psych Common normals: mental status grossly normal, thought process normal, cooperative, affect normal, speech normal and activity/motor behavior normal Speech: normal speech Thought process: normal thought process Results Additional Findings Additional findings: If on a controlled substance or opioids, I have checked an [place]AR[place] report on this patient and there are no aberrancies noted in the prescribing history.??If on a controlled substance or opioid a drug screen was completed and reviewed within the last year, and if there has not been a drug screen completed we ordered one today to monitor higher risk, state monitored pain medication use. As part of providing excellent, safe, comprehensive care, the following was completed at our patient's visit: 1. A medication reconciliation and review to ensure accurate knowledge of current/active medications, including asking our patients to inform us about any [id number] medications or herbal remedies/nutritional supplements/alternative remedies. 2. A review to specifically ensure our patients have had annual screening for screening for depression, screening for tobacco use, and screening for unhealthy alcohol use. For concerning screenings had a discussion with the patient, provided patient education, and recommended follow-up with primary care provider when appropriate. If patient noted with a risk of falling, they received education on strength, gait, and balance training to prevent future risk of falling. Portions of this note may have been carried over from the previous visit and updated as appropriate. Please note this office utilizes paper charting in addition to the electronic medical record. A list of current medications, vitals, and PMH is available there as the clinical staff outside of myself do not have access to [employer] charting during the clinic day operations. As part of providing quality comprehensive care the current medications, vitals, and PMH were reviewed in the paper chart. Assessment and Plan Assessment and Plan (1) Lumbar stenosis with neurogenic claudication: (2) Lumbar spondylosis: Assessment and Plan: The patient has had over 3 months of moderate to severe low back pain with functional impairment and inadequate response to conservative care including NSAIDS (unless there are contraindication such as concurrent blood thinners), multiple oral or topical pain medications, and home exercise program/physical therapy.? Patient has completed >6 weeks of guided home exercise program and/or formal physical therapy program without relief of their symptoms.? We discussed the risks and benefits of the procedure with the patient, and we are NOT planning on using sedation as outlined in the guidelines from Medicare unless there is a documented reason that sedation would be strongly recommended.??The procedure will be completed with fluoroscopic guidance.? Plan 74yof who presents for evaluation. failed conservative measures, as noted. imaging reviewed, as noted. pt declining NS consultation, is not interested in any surgical procedures. given symptoms and imaging findings, we will trial b ilateral L4-5 L5-S1 facet medial branch block x2 for axial facet mediated low back pain working towards RFA. continue baclofen 5-10mg BID PRN pain/spasms. caution medications with CKD. continue HEP as tolerated. f/u after each injection
== END 2025-03-01 12:36 | disposition home or self-care (01) ==
LOC: PM 12:35
PROVIDERS: PCP Family Medicine; Visit Provider Nurse Practitioner
DX: M48.062 Spinal stenosis, lumbar region with neurogenic claudication (principal); M47.816 Spondylosis without myelopathy or radiculopathy, lumbar region
CPT/HCPCS: G0463

== ENCOUNTER 2025-03-20 09:00 | Day surgery (SDC) | payer OTHER, SELFPAY ==
[2025-03-20 09:46] VITALS: BP 151/68; PULSE 70; TEMP 36.2; O2SAT 99
[2025-03-20 09:53] LABS: Glucometer 187 mg/dL (74-106)
[2025-03-20 10:26] VITALS: BP 181/77; PULSE 76; O2SAT 97
[2025-03-20 10:27] VITALS: BP 178/77; PULSE 85; O2SAT 98
[2025-03-20] MEDS: BUPIVACAINE HCL 0.25% PF 25 MG/10 ML VIAL 8 ML INJ (10:27)
[2025-03-20] MEDS: LIDOCAINE HCL 2% 400 MG/20 ML MDV INJ (10:28)
--- NOTE | 2025-03-20 10:30 | W.PM.PROCNOT ---
Date of procedure: 03/20/25 Pre-op diagnosis: Pain due to lumbar spondylosis without myelopathy Post-op diagnosis: same as pre-op Procedure: Procedure: Bilateral L4-5, l5-S1 medial branch block Medications: Bupivacaine 0.25% 6cc The patient was seen and examined in the preoperative holding area.? An informed consent was obtained and placed on the chart.? The patient was brought to the medical procedure unit and placed in the prone position.? A timeout was completed verifying correct patient, procedure site, positioning, plan, and special equipment.? Using aseptic technique, the needle was placed at left L4. Under direct fluoroscopic visualization a Quincke-tipped spinal needle was advanced to the junction of the superior articulating process with the transverse process at the designated medial branch segment.? Preceded by negative aspiration, the above-mentioned injectate was placed in 1 mL aliquots.? The procedure was repeated at left L5, S1.? The needle was removed and insertion site was covered. The same procedure, at the same levels, was completed on the right side. The patient was taken to the postprocedural recovery area and monitored for an appropriate length of time before found suitable for discharge in the company of a responsible adult. Anesthesia: Local Surgeon: Tessy Bruner Pathology: none sent Condition: stable Disposition: no change
== END 2025-03-20 10:36 | disposition home or self-care (01) ==
LOC: SURGOUT 09:01
PROVIDERS: PCP Family Medicine; Visit Provider Anesthesiology
DX: M47.816 Spondylosis without myelopathy or radiculopathy, lumbar region (principal); M54.50 Low back pain, unspecified; Z79.85 Long-term (current) use of injectable non-insulin antidiabetic drugs
CPT/HCPCS: 36415; 64493; 64494; 82948; J0665

== ENCOUNTER 2025-03-23 13:51 | Outpatient (OUT) | payer OTHER, SELFPAY ==
--- NOTE | 2025-03-23 17:52 | PM.WCHP ---
Wound Care H&P: HPI History of Present Illness Narrative: The patient is a 74-year-old female with history of type 2 diabetes, last hemoglobin A1c is unknown, who presents for routine nail care. She has no complaints of pain at this time. [facility] Medical History (Updated 03/23/25 @ 17:54 by KARO Herman) Anemia ?D64.9 - Anemia, unspecified (ICD-10) Hearing deficit ?H91.90 - Unspecified hearing loss, unspecified ear (ICD-10) Carpal tunnel syndrome ?G56.00 - Carpal tunnel syndrome, unspecified upper limb (ICD-10) Acid reflux ?K21.9 - Gastro-esophageal reflux disease without esophagitis (ICD-10) Diabetes ?E11.9 - Type 2 diabetes mellitus without complications (ICD-10) Kidney stone ?N20.0 - Calculus of kidney (ICD-10) COLTEN on CPAP ?G47.33 - Obstructive sleep apnea (adult) (pediatric) (ICD-10) Sleep apnea ?G47.30 - Sleep apnea, unspecified (ICD-10) High cholesterol ?E78.00 - Pure hypercholesterolemia, unspecified (ICD-10) Palpitations ?R00.2 - Palpitations (ICD-10) HTN (hypertension) ?I10 - Essential (primary) hypertension (ICD-10) Surgical History History of eye surgery ?Z98.890 - Other specified postprocedural states (ICD-10) History of carpal tunnel release ?Z98.890 - Other specified postprocedural states (ICD-10) History of hysterectomy ?Z90.710 - Acquired absence of both cervix and uterus (ICD-10) Hx of cholecystectomy ?Z90.49 - Acquired absence of other specified parts of digestive tract (ICD-10) Social History Smoking status: Never smoker Meds Home Medications and Allergies Home Medications ?Medication ?Instructions ?Recorded ?Confirmed ?Type allopurinol 300 mg tablet 300 mg PO DAILY 01/21/24 03/20/25 History atenolol 50 mg tablet 50 mg PO Q24H 01/21/24 03/20/25 History atorvastatin 20 mg tablet 20 mg PO DAILY 01/21/24 03/20/25 History gabapentin 300 mg capsule 300 mg PO TID 01/21/24 03/20/25 History glimepiride 2 mg tablet 2 mg PO BID 01/21/24 03/20/25 History lisinopril 20 1 tab PO DAILY 01/21/24 03/20/25 History mg-hydrochlorothiazide 12.5 mg tablet magnesium oxide 400 mg (241.3 mg 400 mg PO DAILY 01/21/24 03/20/25 History magnesium) tablet ropinirole 2 mg tablet 2 mg PO DAILY 01/21/24 03/20/25 History sitagliptin phosphate 50 mg tablet 50 mg PO DAILY 01/21/24 03/20/25 History (Januvia) ascorbic acid (vitamin C) 500 mg 500 mg PO DAILY 04/07/24 03/20/25 History chewable tablet (Acerola C) aspirin 81 mg tablet,delayed 81 mg PO DAILY 04/07/24 03/20/25 History release (Adult Low Dose Aspirin) cholecalciferol (vitamin D3) 25 1,000 unit PO DAILY 04/07/24 03/20/25 History mcg (1,000 unit) chewable tablet (VitaJoy Daily D) mecobalamin (vitamin B12) 1,000 1,000 mcg PO DAILY 04/07/24 03/20/25 History mcg chewable tablet omeprazole 20 mg capsule,delayed 20 mg PO DAILY 01/10/25 03/20/25 History release pioglitazone 15 mg tablet 15 mg PO BID 01/10/25 03/20/25 History resmetirom 80 mg tablet (Rezdiffra) 80 mg PO DAILY 01/10/25 02/20/25 History baclofen 10 mg tablet 10 mg PO Q12H 02/15/25 03/20/25 History loratadine 10 mg tablet (Claritin) 10 mg PO DAILY 02/20/25 03/20/25 History Allergies Allergy/AdvReac Type Severity Reaction Status Date / Time codeine AdvReac Intermediate gi upset Verified 03/20/25 09:38 Exam Narrative: Exam Narrative: Derm: Toenails 1 through 10 are elongated, thickened, mycotic. No ulcerative or preulcerative lesions are noted. Skin is diffusely dry. Vascular: DP pulses are faintly palpable bilaterally. PT pulses are nonpalpable. Capillary refills less than 3 seconds bilaterally. Varicosities are present superficially. There is 2+ nonpitting edema of both lower legs and ankles. Digital hair is absent bilaterally. Neuro: Protective sensation was tested with a monofilament in both feet. The patient was able to detect 3/5 areas tested on the right and 4/5 areas tested on the left. Vibratory sensation is absent bilaterally. Achilles deep tendon reflexes are absent bilaterally. Musculoskeletal: No gross deformity. No pain with palpation. Assessment and Plan Assessment and Plan (1) Tinea unguium: (2) Diminished pulses in lower extremity: (3) Type 2 diabetes mellitus with diabetic neuropathy, unspecified: Plan Routine nail care performed. Follow-up in 3 months. Acute Procedures Podiatry Nail Debridement Class B Findings Absent posterior tibial pulse: bilateral Advanced trophic changes as evidenced by any three of the following: decreased hair growth, nail changes (thickening) and skin texture (thin or shiny) Class C Findings Claudication: No Temperature changes: No Edema: Yes Nail debridement paresthesia (abnormal spontaneous sensations in the feet): No Burning: No Qualifies If: Qualifiers If:: A patient qualifies for nail debridement if they have: 1 class A finding (Q7) 2 class B findings (Q8) OR 1 class B & 2 class C findings in addition to a primary condition (Q9) Nail Procedure Nail Procedure Time out: Yes Nail procedure: other (Toenail debridement toes 1 through 10) Number of affected nails: 10 Location (toes): left and right Procedure successful: Yes Patient tolerated procedure: well and no complications Additional comments: Toenails 1 through 10 were sharply debrided without incident with nail nippers.
== END 2025-03-23 13:52 | disposition home or self-care (01) ==
LOC: WC 13:51
PROVIDERS: PCP Family Medicine; Visit Provider Physician Assistant
DX: B35.1 Tinea unguium (principal); R09.89 Other specified symptoms and signs involving the circulatory and respiratory systems; E11.40 Type 2 diabetes mellitus with diabetic neuropathy, unspecified
CPT/HCPCS: 11721

== ENCOUNTER 2025-03-29 10:00 | Outpatient (OUT) | payer OTHER, SELFPAY ==
--- NOTE | 2025-03-29 10:41 | PM.CN ---
Consult Note: HPI Data of Consult Patient: known to practice within the last 3 years Requesting Physician: Janelle Day NP Primary Care Provider: VINAY MATTA Consult Narrative Reason for consult: low back pain, bilateral leg weakness Narrative: 74yof who presents for evaluation. longstanding history of low back pain, now notes worsening bilateral leg weakness over past several months. lumbar xr reviewed, significant for multilevel spondylosis and sij degeneration. continues in a series of provider directed home exercises >6 weeks, without lasting benefit. uses gabapentin. denies adverse med side effects. recent MRI consistent with multilevel ddd, stenosis, and spondylosis. previously underwent right L4-5 L5-S1 TFESI with mild relief per pt. most recently on 03-20-25 underwent bilateral L4/5 L5/S1 facet medial branch block #1 with no improvement in low back pain while anesthetized. cc:: CC: Janelle Day NP Review of Systems ROS Status of ROS 10 or more systems reviewed and unremarkable except as noted in history and below Musculoskeletal Reports: back pain and extremity pain PFSH PFSH Medical History (Updated 03/23/25 @ 17:54 by KARO Herman) Anemia ?D64.9 - Anemia, unspecified (ICD-10) Hearing deficit ?H91.90 - Unspecified hearing loss, unspecified ear (ICD-10) Carpal tunnel syndrome ?G56.00 - Carpal tunnel syndrome, unspecified upper limb (ICD-10) Acid reflux ?K21.9 - Gastro-esophageal reflux disease without esophagitis (ICD-10) Diabetes ?E11.9 - Type 2 diabetes mellitus without complications (ICD-10) Kidney stone ?N20.0 - Calculus of kidney (ICD-10) COLTEN on CPAP ?G47.33 - Obstructive sleep apnea (adult) (pediatric) (ICD-10) Sleep apnea ?G47.30 - Sleep apnea, unspecified (ICD-10) High cholesterol ?E78.00 - Pure hypercholesterolemia, unspecified (ICD-10) Palpitations ?R00.2 - Palpitations (ICD-10) HTN (hypertension) ?I10 - Essential (primary) hypertension (ICD-10) Surgical History History of eye surgery ?Z98.890 - Other specified postprocedural states (ICD-10) History of carpal tunnel release ?Z98.890 - Other specified postprocedural states (ICD-10) History of hysterectomy ?Z90.710 - Acquired absence of both cervix and uterus (ICD-10) Hx of cholecystectomy ?Z90.49 - Acquired absence of other specified parts of digestive tract (ICD-10) Social History Smoking status: Never smoker Meds Home Medications and Allergies Home Medications ?Medication ?Instructions ?Recorded ?Confirmed ?Type allopurinol 300 mg tablet 300 mg PO DAILY 01/21/24 03/20/25 History atenolol 50 mg tablet 50 mg PO Q24H 01/21/24 03/20/25 History atorvastatin 20 mg tablet 20 mg PO DAILY 01/21/24 03/20/25 History gabapentin 300 mg capsule 300 mg PO TID 01/21/24 03/20/25 History glimepiride 2 mg tablet 2 mg PO BID 01/21/24 03/20/25 History lisinopril 20 1 tab PO DAILY 01/21/24 03/20/25 History mg-hydrochlorothiazide 12.5 mg tablet magnesium oxide 400 mg (241.3 mg 400 mg PO DAILY 01/21/24 03/20/25 History magnesium) tablet ropinirole 2 mg tablet 2 mg PO DAILY 01/21/24 03/20/25 History sitagliptin phosphate 50 mg tablet 50 mg PO DAILY 01/21/24 03/20/25 History (Januvia) ascorbic acid (vitamin C) 500 mg 500 mg PO DAILY 04/07/24 03/20/25 History chewable tablet (Acerola C) aspirin 81 mg tablet,delayed 81 mg PO DAILY 04/07/24 03/20/25 History release (Adult Low Dose Aspirin) cholecalciferol (vitamin D3) 25 1,000 unit PO DAILY 04/07/24 03/20/25 History mcg (1,000 unit) chewable tablet (VitaJoy Daily D) mecobalamin (vitamin B12) 1,000 1,000 mcg PO DAILY 04/07/24 03/20/25 History mcg chewable tablet omeprazole 20 mg capsule,delayed 20 mg PO DAILY 01/10/25 03/20/25 History release pioglitazone 15 mg tablet 15 mg PO BID 01/10/25 03/20/25 History resmetirom 80 mg tablet (Rezdiffra) 80 mg PO DAILY 01/10/25 02/20/25 History baclofen 10 mg tablet 10 mg PO Q12H 02/15/25 03/20/25 History loratadine 10 mg tablet (Claritin) 10 mg PO DAILY 02/20/25 03/20/25 History Allergies Allergy/AdvReac Type Severity Reaction Status Date / Time codeine AdvReac Intermediate gi upset Verified 03/20/25 09:38 Exam Constitutional Documenting provider has reviewed patient's vital signs: yes Common normals: no apparent distress, oriented x3, healthy appearing, alert and well nourished General appearance: cooperative HENMT Common normals: normocephalic, hearing grossly normal bilaterally and moist oral mucous membranes Head and scalp: normocephalic Eye Common normals: PERRL Pupil: PERRL Neck & C-Spine Common normals: full ROM General: normal visual inspection Chest Common normals: inspection of chest normal Respiratory Common normals: normal respiratory effort, no retractions and no use of accessory muscles Back & Pelvis Lumbar spine/lower back: ROM limited, pain with ROM and lumbar spinal tenderness Other: sensation intact BLE strength 5/5 in BLE increased low back and BLE pain with standing and walking, improved with forward flexion and sitting Extremity Common normals: normal to inspection and full ROM Neuro Common normals: oriented x3 Sensorium/orientation: alert Motor exam: no movement abnormalities noted Psych Common normals: mental status grossly normal, thought process normal, cooperative, affect normal, speech normal and activity/motor behavior normal Speech: normal speech Thought process: normal thought process Results Additional Findings Additional findings: If on a controlled substance or opioids, I have checked an [place] report on this patient and there are no aberrancies noted in the prescribing history.??If on a controlled substance or opioid a drug screen was completed and reviewed within the last year, and if there has not been a drug screen completed we ordered one today to monitor higher risk, state monitored pain medication use. As part of providing excellent, safe, comprehensive care, the following was completed at our patient's visit: 1. A medication reconciliation and review to ensure accurate knowledge of current/active medications, including asking our patients to inform us about any [id number] medications or herbal remedies/nutritional supplements/alternative remedies. 2. A review to specifically ensure our patients have had annual screening for screening for depression, screening for tobacco use, and screening for unhealthy alcohol use. For concerning screenings had a discussion with the patient, provided patient education, and recommended follow-up with primary care provider when appropriate. If patient noted with a risk of falling, they received education on strength, gait, and balance training to prevent future risk of falling. Portions of this note may have been carried over from the previous visit and updated as appropriate. Please note this office utilizes paper charting in addition to the electronic medical record. A list of current medications, vitals, and PMH is available there as the clinical staff outside of myself do not have access to [employer] charting during the clinic day operations. As part of providing quality comprehensive care the current medications, vitals, and PMH were reviewed in the paper chart. Assessment and Plan Assessment and Plan (1) Lumbar stenosis with neurogenic claudication: Assessment and Plan: ALF 36% with moderate to severe pain with standing, walking, ADLs, impacting social life and travel (2) Lumbar spondylosis: Plan 74yof who presents for evaluation. failed conservative measures, as noted. imaging reviewed, as noted. pt declining NS consultation, is not interested in any NS interventions due to risks and age. given symptoms and imaging findings, seeing as pt has failed to benefit from lumbar ESIs and MBBs and is not interested in NS intervention I have reviewed the vertiflex procedure with the pt. I will have Dr Bruner further review her case in consideration of L4-5 vertiflex for stenosis with NC, although the MRI does show multilevel severe stenosis the pt is not interested in traditional back surgery and continues to express severe physical restrictions and impacted quality of life. caution further medication management with CKD. continue gabapentin and tylenol PRN. continue HEP as tolerated.
== END 2025-03-29 10:01 | disposition home or self-care (01) ==
LOC: PM 10:00
PROVIDERS: PCP Family Medicine; Visit Provider Nurse Practitioner
DX: M48.062 Spinal stenosis, lumbar region with neurogenic claudication (principal); M47.816 Spondylosis without myelopathy or radiculopathy, lumbar region
CPT/HCPCS: G0463

== ENCOUNTER 2025-04-19 11:17 | Outpatient (OUT) | payer OTHER, SELFPAY ==
--- OUTSIDE RECORDS SUMMARY | 2024-12-29 10:00 | XMS_ITS ---
Author Organization [facility] in [place] Address [address] [place] [address] Care Team Providers Care Plant Sciences Professor Name Role Phone Sheila DOS SANTOSCandelario Primary Care Provider Unavail Regi Shane Unavailable [phone] Allergies Allergen (clinical drug ingredient) Drug/Non Drug [...] Encounters Encounter Location Date Provider Diagnosis [facility] (PODIATRY) [address] [place] [address] [place] [address] 12/29/2024 Regi Jacinto Diabetes E11.9 Assessments Encounter Date Diagnosis (ICD Code) Assessment Notes Treatment Notes Treatment Clinical Notes Section Notes 12/29/2024 Diabetes (ICD-10 - E11.9) Plan Of Treatment No Information Progress Notes * Anh MEJIADOB:1950 (74 yo F)Acc No.[id number]:12/29/2024 New Patient Patient: Anh CHEN Provider: Josh Jacitno PA-C :1950 A ge:73 Y S ex:Female Date:12/29/2024 Address:[address] [place] [address] [id number] Pcp:Candelario Sosa, DO Check In:02:12 PM ESTCheck [...] 12/29/2024 Generated for Param guevara/[place]/eTransmitting on: 0 04/19/2025 02:12 AM EDT History and Physical Notes * HPI (History of Present Illness) Category Sub-Category Detail Notes Category Not es General Pt here for rou daquan nail trimming. All nails 1 throught 10 were trimmed and filed without incident. Pt pleased.
--- OUTSIDE RECORDS SUMMARY | 2025-04-07 14:00 | XMS_ITS | Encounter Summary ---
Author Organization [facility] Address [address] [place] [id number] Care Team Providers Care Press Operator Assistant Name Role Phone Nisa Shepherd CNP Primary Care Provider [phone] Source Comments In the event this information is protected by the Federal Confidentiality of Alcohol and Drug AbusePatient Records regulations: The Federal rules restrict any use of the information to criminally investigate or prosecute any alcohol or drug abuse patient.[facility] Reason for Visit * Reason Comments Established Patient Encounter Details Date Type Department Care Team (Latest Contact Info) Description 04/07/2025 2:00 PM EDT Visit (SP) Office Hematology/Oncology [address] [place] [address] [place] [address] Daksha Balderas PA-C [address] [place] [address] Iron deficiency anemia, unspecified iron deficiency anemia type (Primary Dx); Thrombocytopenia; Stage 3b chronic kidney disease (HCC); Anemia, unspecified type Social History Tobacco Use Types Packs/Day Years Used Date Smoking Tobacco: Never Passive Smoke Exposure: Past Smokeless Tobacco: Never Alcohol Use Standard Drinks/Week Comments Never 0 (1 standard drink = 0.6 oz pur e alcohol) PHQ-2 Answer Date Recorded PHQ-2 score 0 07/15/2024 Area Deprivation Index Answer Date Tuan rded National Score (1-100), lower number is lower ri sk 80 05/01/2023 State Score (1-10), lower number is lower risk 7 05/01/2023 Data from: https://www.neighborhoodatlas.medicine.[facility]/. Last address used for calculation [address] 05/01/2023 Comments No Sex and Gender Information Value Date Recorded Sex Assigned at Not on file Legal Sex Female 10:39 AM EST Gender Identity Not on file Sexual Orientation Not on file documented as of this encounter Last Filed Vital Signs Vital Sign Reading Time Taken Comments Blood Pressure 130/69 04/07/2025 2:02 PM EDT Pulse 74 04/07/2025 2:02 PM EDT Temperature 36.1 C (97 F) 04/07/2025 2:02 PM EDT Respiratory Rate 18 04/07/2025 2:02 PM EDT Oxygen Saturation 97% 04/07/2025 2:02 PM EDT Inhaled Oxygen Concentration - - Weight 101.1 kg (222 lb 14.2 oz) 04/07/2025 2:02 PM EDT Height 158 cm (5' 2.21 ) 04/07/2025 2:02 PM EDT Body Mass Index 40.5 04/07/2025 2:02 PM EDT documented in this encounter Progress Notes * Daksha Balderas PA-C - 04/07/2025 2:32 PM EDT Hematology Progress Note PATIENT NAME: Anh Tejeda CLINIC NO.: [id number] ATTENDING PHYSICIAN: Henry Walker MD DATE OF SERVICE: 01/06/2025 This note was copied from prior heme/onc encounter from 07/15/2024. The patient's medications, allergies, past medical/surgical hx, family hx, ROS, and physical exam have all been reviewed and updatedas appropriate. The interval history and assessment/plan content have been modified and are specific to today's (01/06/2025) purpose for the visit. CHIEF COMPLAINT: 3 month Follow up Diagnosis: NAINA Treatment: Venofer x 3 doses 10/2022, again in January 2024 Interval History: Anh returns for follow up. Her biggest issue is her chronic back pain. She is more fatigued and sleepy through the day, but is not having ice cravings. Some leg cramps but not often. Is having more dizziness than usual. No black tarry stools. No blood in her stool. No other bleeding. Current Outpatient Medications Medication Sig baclofen 10 mg tablet Take 5 mg by mouth once daily. pioglitazone (ACTOS) 15 mg tablet resmetirom (REZDIFFRA) 80 mg tablet once daily. allopurinol (ZYLOPRIM) 300 mg tablet 300 mg. JANUVIA 50 mg tablet Take 1 tablet by mouth every afternoon. magnesium oxide 400 mg magnesium tab Take 1 tablet by mouth once daily. ASCORBIC ACID, VITAMIN [...] Take 1,000 Units by mouth once daily. gabapentin (NEURONTIN) 300 mg capsule Take 300 mg by mouth daily at bedtime. lisinopril-hydroCHLOROthiazide (PRINZIDE,ZESTORETIC) 10-12.5 mg per tablet Take 1 tablet by mouth once daily. glimepiride (AMARYL) 2 mg tablet Take 2 mg by mouth daily with breakfast. omeprazole (PRILOSEC) 20 mg capsule Take 20 mg by mouth once daily. rOPINIRole (REQUIP) 0.5 mg tablet Take 0.5 mg by mouth twice daily. loratadine (CLARITIN) 5 mg/5 mL syrup Take 5 mg by mouth as needed for cold/allergy symptoms. amoxicillin-clavulanate potassium (AUGMENTIN) 875-125 mg per tablet (Patient not taking: Reported on 04/07/2025) diphenhydrAMINE HCl (CHILDREN'S BENADRYL ALLERGY) 12.5 mg chewable tablet 25 mg. (Patient not taking: Reported on 04/07/2025) FARXIGA 10 mg tablet TAKE 1 TABLET BY MOUTH EVERYDAY FOR DIABETES (Patient not taking: Reported on 04/07/2025) albuterol HFA (PROVENTIL HFA, VENTOLIN HFA) 90 mcg/actuation inhaler INHALE 2 PUFFS BY MOUTH EVERY 4 HOURS NEEDED FOR COUGH (Patient not taking: Reported on 04/07/2025) No current facility-administered medications for this visit. [...] COLONOSCOPY EGD W/O BRSH SPEC VARICIES INJ REVISE MEDIAN N/CARPAL TUNNEL SURG Right w/Trigger Finger FAMILY HISTORY Problem Relation Age of Onset other (Congenital heart disease) Mother Lung Cancer Father Social History Tobacco Use Smoking status: Never Passive exposure: Past Smokeless tobacco: Never Vaping Use Vaping status: Never Used Substance Use Topics Alcohol use: Never Drug use: Not Currently REVIEW OF SYSTEMS GENERAL: No weight loss, malaise or fevers. No night sweats. +fatigue moderate HEENT: Negative for headaches, No changes in [...] and muscle pain. SKIN: Negative for lesions, rash. HEMATOLOGY/LYMPHOLOGY Negative for prolonged bleeding, bruising easily, and swollen nodes. NEURO: Negative for numbness or tingling of hands/feet. No weakness. PHYSICAL EXAMINATION: BP 130/69 Pulse 74 Temp 36.1 ??C (97 ??F) (Temporal) Resp 18 Ht 158 cm (5' 2.21 ) Wt 101.1 kg (222 lb 14.2 oz) SpO2 97% BMI 40.50 kg/m?? ECOG PS: 1 General: Alert and oriented, no distress, pleasant and cooperative. Heart: Regular, normal S1 and S2, no murmurs, rubs, or gallops Lungs: Clear to auscultation bilaterally Abdomen: Benign Extremities: Feet/ankles without edemal LABS: Glucose (mg/dL) Date Value 04/07/2025 186 Potassium (mmol/L) Date Value 04/07/2025 5.0 Sodium (mmol/L) Date Value 04/07/2025 141 Chloride (mmol/L) Date Value 04/07/2025 105 CO2 (mmol/L) Date Value 04/07/2025 26 Creatinine (mg/dL) Date Value 04/07/2025 1.16 BUN (mg/dL) Date Value 04/07/2025 41 Anion Gap (mmol/L) Date Value 04/07/2025 10 Calcium, Total (mg/dL) Date Value 04/07/2025 9.3 Protein, Total (g/dL) Date Value 04/07/2025 6.0 Albumin (g/dL) Date Value 04/07/2025 4.0 Bilirubin, Total (mg/dL) Date Value 04/07/2025 0.7 Alkaline Phosphatase (U/L) Date Value 04/07/2025 141 AST (U/L) Date Value 04/07/2025 17 ALT (U/L) Date Value 04/07/2025 15 WBC Date Value Ref Range Status 04/07/2025 5.28 3.70 - 11.00 k/uL Final RBC Date Value Ref Range Status 04/07/2025 3.45 (L) 3.90 - 5.20 m/uL Final Hemoglobin Date Value Ref Range Status 04/07/2025 10.2 (L) 11.5 - 15.5 g/dL Final Hematocrit Date Value Ref Range Status 04/07/2025 30.4 (L) 36.0 - 46.0 % Final MCV Date Value Ref Range Status 04/07/2025 88.1 80.0 - 100.0 fL Final MCH Date Value Ref Range Status 04/07/2025 29.6 26.0 - 34.0 pg Final MCHC Date Value Ref Range Status 04/07/2025 33.6 30.5 - 36.0 g/dL Final RDW-CV Date Value Ref Range Status 04/07/2025 16.1 (H) 11.5 - 15.0 % Final Platelet Count Date Value Ref Range Status 04/07/2025 136 (L) 150 - 400 k/uL Final MPV Date Value Ref Range Status 04/07/2025 9.1 9.0 - 12.7 fL Final Abs Neut Date Value Ref Range Status 04/07/2025 3.54 1.45 - 7.50 k/uL Final Lymphocytes % Date Value Ref Range Status 04/07/2025 24.8 % Final Abs Lymph Date Value Ref Range Status 04/07/2025 1.31 1.00 - 4.00 k/uL Final Monocytes % Date Value Ref Range Status 04/07/2025 5.3 % Final Abs [place] Date Value Ref Range Status 04/07/2025 0.28 <0.87 k/uL Final Abs Eosin Date Value Ref Range Status 04/07/2025 0.12 <0.46 k/uL Final Basophils % Date Value Ref Range Status 04/07/2025 0.2 % Final Abs Baso Date Value Ref Range Status 04/07/2025 <0.03 <0.11 k/uL Final PATH: IMAGING: ASSESSMENT AND PLAN: Anh Tejeda is a 74 year old year old female past medical [...] doses (per insurance limitations) in October 2022. Most recent dose of Venofer was 01/2024. Her hemoglobin has dropped slightly to 10.2 today. Iron studies are pending. If low will give IV iron, but if stable, will need a short-term follow up for additional anemia work up. Chronic kidney disease stage 3b--likely secondary to diabetes. Now with nephrology following DM2-- follow up with PCP Mild TCP: Continue to monitor. Should this worsen, especially in the setting of anemia with normal iron stores, would need to consider further workup. Platelets [id number] Polyneuropathy: negative SPEP/MPA in 2021. Some improvement with carpal tunnel repair. Daksha Balderas PA-C CC: Nisa Shepherd CNP I spent a total of 25 minutes on the date of the service which included preparing to see the patient, [id number] patient care, completing clinical documentation, performing a medically appropriate examination, counseling and educating the patient/family/caregiver, ordering medications, tests, or p rocedures, independently interpreting results (not separately reported), communicating results to the patient/family/caregiver, and care coordination (not separately reported). documented in this encounter Plan of Treatment Upcoming Encounters Date Type Department Care Team (Latest Contact Info) Description 04/25/2025 11:00 AM EDT Visit (SP) Office Hematology/Oncology [address] [place] [address] [place] [address] Daksha Balderas PA-C [address] [facility] [address] 3 month follow up with Daksha and morgan 06/30/2025 1:45 PM EDT Office Visit [facility] [address] [place] [address] [place] [address] 3 month follow up with Daksha and morgan 06/30/2025 2:00 PM EDT Visit (SP) Office Hematology/Oncology [address] [place] [address] [place] [address] Daksha Balderas PA-C [address] [facility] [place] [address] 3 month follow up with Daksha and lab Scheduled Orders Name Type Priority Associated Diagnoses Orde r Schedule COMPREHENSIVE METABOLIC PANEL Lab Routine Iron deficiency anemia, unspecified iron deficiency anemia type Thrombocytopenia Stage 3b chronic kidney disease (HCC) Anemia, unspecified type Expected: 07/08/2025 (Approximate), Expires: 10/07/2025 RETICULOCYTE COUNT Lab Routine Iron deficiency anemia, unspecified iron deficiency anemia type Thrombocytopenia Stage 3b chronic kidney disease (HCC) Anemia, unspecified type Expected: 07/08/2025 (Approximate), Expires: 10/07/2025 IRON AND TIBC Lab Routine Iron deficiency anemia, unspecified iron deficiency anemia type Thrombocytopenia Stage 3b chronic kidney disease (HCC) Anemia, unspecified type Expected: 07/08/2025 (Approximate), Expires: 10/07/2025 COMPLETE BLOOD COUNT AND DIFFERENTIAL Lab Routine Iron deficiency anemia, unspecified iron deficiency anemia type Thrombocytopenia Stage 3b chronic kidney disease (HCC) Anemia, unspecified type Expected: 07/08/2025 (Approximate), Expires: 10/07/2025 FERRITIN Lab Routine Iron deficiency anemia, unspecified iron deficiency anemia type Thrombocytopenia Stage 3b chronic kidney disease (HCC) Anemia, unspecified type Expected: 07/08/2025 (Approximate), Expires: 10/07/2025 ERYTHROPOIETIN/EPO Lab Routine Iron deficiency anemia, unspecified iron deficiency anemia type Thrombocytopenia Stage 3b chronic kidney disease (HCC) Anemia, unspecified type Expected: 07/08/2025 (Approximate), Expires: 10/07/2025 VITAMIN B12 Lab Routine Iron deficiency anemia, unspecified iron deficiency anemia type Thrombocytopenia Stage 3b chronic kidney disease (HCC) Anemia, unspecified type Expected: 07/08/2025 (Approximate), Expires: 10/07/2025 FOLATE, SERUM Lab Routine Iron deficiency anemia, unspecified iron deficiency anemia type Thrombocytopenia Stage 3b chronic kidney disease (HCC) Anemia, unspecified type Expected: 07/08/2025 (Approximate), Expires: 10/07/2025 PROTEIN ELECTROPHORESIS SERUM W/INTERP Lab Routine Iron deficiency anemia, unspecified iron deficiency anemia type Thrombocytopenia Stage 3b chronic kidney disease (HCC) Anemia, unspecified type Expected: 07/08/2025 (Approximate), Expires: 10/07/2025 MONOCLONAL PROTEIN, SERUM (BLOOD) Lab Routine Iron deficiency anemia, unspecified iron deficiency anemia type Thrombocytopenia Stage 3b chronic kidney disease (HCC) Anemia, unspecified type Expected: 07/08/2025 (Approximate), Expires: 10/07/2025 documented as of this encounter Visit Diagnoses Diagnosis Iron deficiency anemia, unspecified iron deficiency anemia type- Primary Thrombocytopenia Thrombocytopenia, unspecified Stage 3b chronic kidney disease (HCC) Anemia, unspecified type documented in this encounter Care Teams Press Operator Assistant Relationship Specialty Start Date End Date Nisa Shepherd CNP [address] [place] [address] PCP - General Family Medicine 09/22/22 documented as of this encounter
--- OUTSIDE RECORDS SUMMARY | 2025-04-19 11:19 | XMS_ITS | Encounter Summary ---
Author Organization [facility] Address [address] [place] [id number] Care Team Providers Care Auto Transmission Mechanic Name Role Phone Nisa Shepherd CNP Primary Care Provider [phone]- [phone] Source Comments In the event this information is protected by the Federal Confidentiality of Alcohol and Drug AbusePatient Records regulations: The Federal rules restrict any use of the information to criminally investigate or prosecute any alcohol or drug abuse patient.[facility] Encounter Details Date Type Department Care Team (Latest Contact Info) Description 05/04/2023 H&P External-NonCCF Provider, External, PA-C Do not enter address information under generic External Provider. Social History Tobacco Use Types Packs/Day Years Used Date Smoking Tobacco: Never Passive Smoke Exposure: Past Smokeless Tobacco: Never Alcohol Use Standard Drinks/Week Comments Never 0 (1 standard drink = 0.6 oz pur e alcohol) PHQ-2 Answer Date Recorded PHQ-2 score 0 05/01/2023 Area Deprivation Index Answer Date Tuan rded National Score (1-100), lower number is lower ri sk 80 05/01/2023 State Score (1-10), lower number is lower risk 7 05/01/2023 Data from: https://www.neighborhoodatlas.medicine.[facility].edu/. Last address used for calculation [address] 05/01/2023 Comments No Sex and Gender Information Value Date Recorded Sex Assigned at Not on file Legal Sex Female 10:39 AM EST Gender Identity Not on file Sexual Orientation Not on file documented as of this encounter Plan of Treatment Upcoming Encounters Date Type Department Care Team (Latest Contact Info) Description 04/25/2025 11:00 AM EDT Visit (SP) Office Hematology/Oncology [address] [place] [address] [place] [address] Daksha Balderas PA-C [address] [place] [address] 3 month follow up with Daksha and lab 06/30/2025 1:45 PM EDT Office Visit [facility] [address] [place] [address] [place] [address] 3 month follow up with Daksha and lab 06/30/2025 2:00 PM EDT Visit (SP) Office Hematology/Oncology [address] [place] [address] [place] [address] Daksha Balderas PA-C [address] [place] [address] 3 month follow up with Daksha and lab documented as of this encounter Visit Diagnoses Not on filedocumented in this encounter Care Teams Auto Transmission Mechanic Relationship Specialty Start Date End Date Nisa [place] [address] PCP - General Family Medicine 09/22/22 documented as of this encounter
--- OUTSIDE RECORDS SUMMARY | 2025-04-19 11:19 | XMS_ITS | Clinical Summary ---
Author Organization [facility] Address [address] [place] [id number] Care Team Providers Care Family Consumer Science Teacher Name Role Phone Nisa Shepherd CNP Primary Care Provider [phone] Allergies Active Allergy Reactions Criticality Noted Date Comments Acetaminophen-Codein e Other: See Comments High 10/01/2022 pt states she is unwilling to try even plain tylenol after this experience even though she states she took tylenol prior to this and had no problems Codeine Other: See Comments 09/26/2022 Upset stomach Medications ASCORBIC ACID, VITAMIN C, ORAL Take 500 mg by mouth once daily. Active aspirin (ASPIR-81 ORAL) Take 81 mg by mouth once daily. Active atenolol (TENORMIN) 50 mg tablet Take 50 mg by mouth once daily. Active atorvastatin (LIPITOR) 20 mg tablet Take 20 mg by mouth once daily. Active cholecalciferol (VITAMIN D3) 1,000 unit tab tablet Take 1,000 Units by mouth once daily. Active gabapentin (NEURONTIN) 300 mg capsule Take 300 mg by mouth daily at bedtime. Active lisinopril-hydr oCHLOROthiazide (PRINZIDE,ZESTO RETIC) 10-12.5 mg per tablet Take 1 tablet by mouth once daily. Active glimepiride (AMARYL) 2 mg tablet Take 2 mg by mouth daily with breakfast. Active omeprazole (PRILOSEC) 20 mg capsule Take 20 mg by mouth once daily. Active rOPINIRole (REQUIP) 0.5 mg tablet Take 0.5 mg by mouth twice daily. Active magnesium oxide 400 mg magnesium tab Take 1 tablet by mouth once daily. 02/03/2023 Active JANUVIA 50 mg tablet Take 1 tablet by mouth every afternoon. 09/15/2023 Active albuterol HFA (PROVENTIL HFA, VENTOLIN HFA) 90 mcg/actuation inhaler INHALE 2 PUFFS BY MOUTH EVERY 4 HOURS NEEDED FOR COUGH 10/12/2023 Active FARXIGA 10 mg tablet TAKE 1 TABLET BY MOUTH EVERYDAY FOR DIABETES 07/06/2024 Active resmetirom (REZDIFFRA) 80 mg tablet once daily. 05/11/2024 Active allopurinol (ZYLOPRIM) 300 mg tablet 300 mg. Active diphenhydrAMINE HCl (CHILDREN'S BENADRYL ALLERGY) 12.5 mg chewable tablet 25 mg. 09/29/2024 Active amoxicillin-cla vulanate potassium (AUGMENTIN) 875-125 mg per tablet 01/02/2025 Active pioglitazone (ACTOS) 15 mg tablet 01/02/2025 Active baclofen 10 mg tablet Take 5 mg by mouth once daily. 03/30/2025 Active loratadine (CLARITIN) 5 mg/5 mL syrup Take 5 mg by mouth as needed for cold/allergy symptoms. Active Active Problems Problem Noted Date Diagnosed Date Stage 3b chronic kidney disease 01/29/2024 Iron deficiency anemia due to chronic blood loss 10/03/2022 Encounters Date Type Department Care Team Description 04/11/2025 Results Follow-Up Hematology/Oncology [address] [place] [address] [place] [address] Daksha Balderas PA-C labs/follow up 04/07/2025 2:00 PM EDT Visit (SP) Office Hematology/Oncology [address] [place] [address] [place] [address] Daksha Balderas PA-C Iron deficiency anemia, unspecified iron deficiency anemia type (Primary Dx); Thrombocytopenia; Stage 3b chronic kidney disease (HCC); Anemia, unspecified type 04/07/2025 Travel from Last 3 Months Immunizations Immunization Administration Dates Next Due influenza (HD-IIV3) vaccine, age 65+ yr, high dose, trivalent, PF (FLUZONE HIGH-DOSE) 09/18/2016 influenza (HD-IIV4) vaccine, age 65+ yr, high dose, quadrivalent, PF (FLUZONE HIGH-DOSE) 11/25/2023,08/27/2022,09/26/2021 influenza (IIV3) vaccine, tr ivalent (AFLURIA, FLULAVAL, FLUVIRIN, FLUZONE) 10/17/2015 influenza (IIV4) vaccine, ag e 6 mo - 64 yr, quadrivalent, PF (AFLURIA, FLUARIX, FLULAVAL, FLUZONE) 08/16/2018 influenza (LAIV) vaccine, na pramod, unspecified formulation 08/16/2018 pneumococcal polysaccharide (PPV23) vaccine, 23 valent (PNEUMOVAX 23) 08/16/2018 Family History Medical History Relation Comments Lung Cancer Father Congenital heart disease Mother Relation Status Comments Father Mother Social History Tobacco Use Types Packs/Day Years Used Date Smoking Tobacco: Never Passive Smoke Exposure: Past Smokeless Tobacco: Never Tobacco Cessation:Counseling Given: Not Answered Alcohol Use Standard Drinks/Week Comments Never 0 (1 standard drink = 0.6 oz pur e alcohol) PHQ-2 Answer Date Recorded PHQ-2 score 0 07/15/2024 Area Deprivation Index Answer Date Tuan rded National Score (1-100), lower number is lower ri sk 80 05/01/2023 State Score (1-10), lower number is lower risk 7 05/01/2023 Data from: https://www.neighborhoodatlas.medicine.[facility].edu/. Last address used for calculation [address] 05/01/2023 Comments No Sex and Gender Information Value Date Recorded Sex Assigned at Not on file Legal Sex Female 10:39 AM EST Gender Identity Not on file Sexual Orientation Not on file Last Filed Vital Signs Vital Sign Reading [...] Mass Index 40.5 04/07/2025 2:02 PM EDT Plan of Treatment Upcoming Encounters Date Type Department Care Team (Latest Contact Info) Description 04/25/2025 11:00 AM EDT Visit (SP) Office Hematology/Oncology [address] [place] [address] [place] [address] Daksha Balderas PA-C [address] [place] [address] 3 month follow up with Daksha and lab 06/30/2025 1:45 PM EDT Office Visit [facility] [address] [place] [address] 3 month follow up with Daksha and morgan 06/30/2025 2:00 PM EDT Visit (SP) Office Hematology/Oncology [address] [place] [address] [place] [address] Daksha Balderas PA-C [address] [place] [place] [address] 3 month follow up with Daksha and lab Health Maintenance Due Date Last Done Comments Annual PCP Team Chronic Dise ase Visit 1966 Anxiety Screening 1966 Depression Screening 1966 Hepatitis C Screening 1966 DTaP,Tdap,Td Vaccine (1 - Tdap) 1967 Shingrix Vaccine (1 of 2) 1998 Bone Density Screening 2013 Pneumococcal Vaccine: 50+ (2 of 2 - PCV) 08/16/2019 08/16/2018 Covid-19 Vaccine (4 - 2023-2 5 season) 2024 08/13/2021, 02/05/2021, 01/14/2021 Advance Directive Discussion 11/16/2024 Hemoglobin/Hematocrit 04/18/2026 04/18/2025 , 04/07/2025, 01/06/2025, Additional history exists Serum Creatinine 04/18/2026 04/18/2025, , 01/06/2025, Additional history exists Diabetes Screening 04/18/2028 04/18/2025, 0 04/07/2025, 01/06/2025, Additional history exists Influenza Vaccine Completed 08/24/2024, , 08/27/2022, Additional history exists RSV Vaccine Completed 08/24/2024 Procedures Procedure Name Priority Date/Time Associated Diagnosis Comments PROTEIN TOTAL BLD Routine 04/18/2025 11: 13 AM EDT Anemia, unspecified type IMMUNOGLOBULINS DIVINA Routine 04/18/2025 1 1:13 AM EDT Anemia, unspecified type HAPTOGLOBIN BLD Routine 04/18/2025 11:13 AM EDT Anemia, unspecified type VITAMIN B12 BLOOD Routine 04/18/2025 11: 13 AM EDT Anemia, unspecified type TSH BLD Routine 04/18/2025 11:13 AM EDT Anemia, unspecified type IRON + TIBC Routine 04/18/2025 11:13 AM EDT Anemia, unspecified type FOLATE SERUM Routine 04/18/2025 11:13 AM EDT Anemia, unspecified type FERRITIN BLD Routine 04/18/2025 11:13 AM EDT Anemia, unspecified type CBC + DIFF Routine 04/18/2025 11:13 AM EDT Anemia, unspecified type RETIC COUNT Routine 04/18/2025 11:13 AM EDT Anemia, unspecified type LD LACTATE DEHYDRO Routine 04/18/2025 11 :13 AM EDT Anemia, unspecified type COMPREHENSIVE METABOLIC PANEL Routine 04/18/2025 11:13 AM EDT Anemia, unspecified type RETIC COUNT Routine 04/07/2025 1:37 PM EDT Iron deficiency anemia, unspecified iron deficiency anemia type Thrombocytopenia Stage 3b chronic kidney disease (HCC) FERRITIN BLD Routine 04/07/2025 1:37 PM EDT Iron deficiency anemia, unspecified iron deficiency anemia type Thrombocytopenia Stage 3b chronic kidney disease (HCC) CBC + DIFF Routine 04/07/2025 1:37 PM EDT Iron deficiency anemia, unspecified iron deficiency anemia type Thrombocytopenia Stage 3b chronic kidney disease (HCC) COMPREHENSIVE METABOLIC PANEL Routine 04/07/2025 1:37 PM EDT Iron deficiency anemia, unspecified iron deficiency anemia type Thrombocytopenia Stage 3b chronic kidney disease (HCC) IRON + TIBC Routine 04/07/2025 1:37 PM EDT Iron deficiency anemia, unspecified iron deficiency anemia type Thrombocytopenia Stage 3b chronic kidney disease (HCC) from Last 3 Months Results * (ABNORMAL) LACTATE DEHYDROGENASE (04/18/2025 11:13 AM EDT) LD 236(H) 135 - 214 U/L 04/18/2025 11:54 AM EDT [facility] Blood BLOOD SPECIMEN / Unknown Venipuncture / Unknown 04/18/2025 11:13 AM EDT 04/18/2025 11:13 AM EDT us Daksha Balderas PA-C LABORATORY Final Result [facility] [address] [place] [address] * VITAMIN B12 (04/18/2025 11:13 AM EDT) Vitamin B12 854 232 - 1,245 pg/mL 04/18/2025 5:16 PM EDT [facility] Blood BLOOD SPECIMEN / Unknown Venipuncture / Unknown 04/18/2025 11:13 AM EDT 04/18/2025 11:13 AM EDT us Daksha Balderas PA-C LABORATORY Final Result [facility] [address] [place] [address] [place] [id number], [place] * THYROID STIMULATING HORMONE (04/18/2025 11:13 AM EDT) TSH 1.250 0.270 - 4.200 mIU/L 04/18/2025 9:41 PM EDT [facility] Blood BLOOD SPECIMEN / Unknown Venipuncture / Unknown 04/18/2025 11:13 AM EDT 04/18/2025 11:13 AM EDT [facility] Balder[facility] PA-C LABORATORY Final Result [facility] [place] [address], [place] * (ABNORMAL) RETICULOCYTE COUNT (04/18/2025 11:13 AM EDT) Only the most recent of2 resultswithin the time period is included. Retic % 4.1(H) 0.4 - 2.0 % 04/18/2025 11:22 AM EDT [facility] Abs Retic 0.154(H) 0.018 - 0.100 M/uL 04/18/2025 11:22 AM EDT [facility] Blood BLOOD SPECIMEN / Unknown Venipuncture / Unknown 04/18/2025 11:13 AM EDT 04/18/2025 11:13 AM EDT Daksha Balderas PA-C LABORATORY Final Result [facility] [address] [place] [address] * (ABNORMAL) PROTEIN, TOTAL (04/18/2025 11:13 AM EDT) Pathologist [facility] Protein, Total 6.2(L) 6.3 - 8.0 g/dL 04/18/2025 4:53 PM EDT [facility] Blood BLOOD SPECIMEN / Unknown Venipuncture / Unknown 04/18/2025 11:13 AM EDT 04/18/2025 11:13 AM EDT Daksha Balderas PA-C LABORATORY Final Result Performing Organization Address [facility] Co de Phone Number [facility] [address] [place], [place] [id number], [place] * IRON AND TIBC (04/18/2025 11:13 AM EDT) Only the most recent of2 resultswithin the time period is included. Iron 73 41 - 186 ug/dL 04/18/2025 9:30 PM EDT [facility] TIBC 336 232 - 386 ug/dL 04/18/2025 9:30 PM EDT [facility] Transferrin Saturation 21.7 15.0 - 57.0 % 04/18/2025 9:30 PM EDT [facility] Blood BLOOD SPECIMEN / Unknown Venipuncture / Unknown 04/18/2025 11:13 AM EDT 04/18/2025 11:13 AM EDT Daksha Balderas PA-C LABORATORY Final Result Performing Organization Address [facility] Co de Phone Number [facility] [address] [place], [place] [id number], [place] * (ABNORMAL) IMMUNOGLOBULINS,IGG,IGA,IGM (04/18/2025 11:13 AM EDT) IgG 682(L) 700 - 1,600 mg/dL 04/18/2025 7:22 PM EDT [facility] IgA 48(L) 70 - 400 mg/dL 04/18/2025 7:22 PM EDT [facility] IgM 42 40 - 230 mg/dL 04/18/2025 7:22 PM EDT [facility] Blood BLOOD SPECIMEN / Unknown Venipuncture / Unknown 04/18/2025 11:13 AM EDT 04/18/2025 11:13 AM EDT Daksha Balderas PA-C LABORATORY Final Result [facility] [address] [facility] [place] [address], [place] * HAPTOGLOBIN (04/18/2025 11:13 AM EDT) Haptoglobin 155 31 - 238 mg/dL 04/18/2025 9:30 PM EDT [facility] Blood BLOOD SPECIMEN / Unknown Venipuncture / Unknown 04/18/2025 11:13 AM EDT 04/18/2025 11:13 AM EDT us Daksha Henriquez Sherrie SIMMONS LABORATORY Final Result Performing Organization Address [facility] Co de Phone Number [facility] [address] [place] [address], [place] * FOLATE, SERUM (04/18/2025 11:13 AM EDT) Folate >20.0 >4.7 ng/mL 04/18/2025 5:16 PM EDT [facility] Comment: A result of > 20 ng/mL is not necessarily indicative of a pathologic or treatable condition: it reflects a limitation of the test methodology. Assay reference range: 4.8 to 24.2 ng/mL. Suitable for detection of folate deficiency. Reference: Folate III (Folate III) [package insert V 1.0 Swedish]. [facility], [place], [place]: September 2015. Blood BLOOD SPECIMEN / Unknown Venipuncture / Unknown 04/18/2025 11:13 AM EDT 04/18/2025 11:13 AM EDT us Molinay Martinez Sherrie SIMMONS LABORATORY Final Result Performing Organization Address City/[facility]/ZIP Co de Phone Number [facility] [address] [facility] [place] [id number], [place] * (ABNORMAL) FERRITIN (04/18/2025 11:13 AM EDT) Only the most recent of2 resultswithin the time period is included. [facility] Ferritin 398.0(H) 14.7 - 205.1 ng/mL 04/18/2025 9:41 PM EDT [facility] Blood BLOOD SPECIMEN / Unknown Venipuncture / Unknown 04/18/2025 11:13 AM EDT 04/18/2025 11:13 AM EDT Daksha Balderas PA-C LABORATORY Final Result [facility] [address] [facility] [address] [place] [id number], * (ABNORMAL) COMPREHENSIVE METABOLIC PANEL (04/18/2025 11:13 AM EDT) Only the most recent of2 resultswithin the time period is included. [facility] Protein, Total 6.4 6.3 - 8.0 g/dL 04/18/2025 11:54 AM EDT [facility] Albumin 4.2 3.9 - 4.9 g/dL 04/18/2025 11:54 AM EDT [facility] Calcium, Total 10.0 8.5 - 10.2 mg/dL 04/18/2025 11:54 AM EDT [facility] Bilirubin, Total 0.8 0.2 - 1.3 mg/dL 04/18/2025 11:54 AM EDT [facility] Alkaline Phosphatase 157(H) 34 - 123 U/L 04/18/2025 11:54 AM EDT [facility] AST 18 13 - 35 U/L 04/18/2025 11:54 AM EDT [facility] ALT 17 7 - 38 U/L 04/18/2025 11:54 AM EDT [facility] Glucose 154(H) 74 - 99 mg/dL 04/18/2025 11:54 AM EDT [facility] Comment: The [place] Diabetes Association (ADA) provides guidance for cutoff [...] Standards of Medical Care in Diabetes 2016, [place] Diabetes Association. Diabetes Care. 2016.39(Suppl 1). BUN 33(H) 7 - 21 mg/dL 04/18/2025 11:54 AM [facility] Creatinine 1.16(H) 0.58 - 0.96 mg/dL 04/18/2025 11:54 AM [facility] Sodium 140 136 - 144 mmol/L 04/18/2025 11:54 AM [facility] Potassium 4.9 3.7 - 5.1 mmol/L 04/18/2025 11:54 AM [facility] Chloride 102 98 - 107 mmol/L 04/18/2025 11:54 AM [facility] CO2 28 22 - 30 mmol/L 04/18/2025 11:54 AM [facility] Anion Gap 10 8 - 15 mmol/L 04/18/2025 11:54 AM [facility] Estimated Glomerular Filtration Rate 49(L) >=60 mL/min/1. 73m 04/18/2025 11:54 AM [facility] Comment:Estimated Glomerular Filtration Rate (eGFR) is calculated using the 2020 CKD-EPI creatinine equation. This equation utilizes serum creatinine, sex, and age as parameters. The creatinine assay has traceable calibration to isotope dilution- mass spectrometry. Refer to KDIGO guidelines for clinical interpretation. In patients with unstable renal function, e.g. those with acute kidney injury, the eGFR may not accurately reflect actual GFR. Blood BLOOD SPECIMEN / Unknown Venipuncture / Unknown 04/18/2025 11:13 AM EDT 04/18/2025 11:13 AM EDT us Daksha Balderas PA-C LABORATORY Final Result [facility] [address] [place] [address] * (ABNORMAL) COMPLETE BLOOD COUNT AND DIFFERENTIAL (04/18/2025 11:13 AM EDT) Only the most recent of2 resultswithin the time period is included. WBC 5.65 3.70 - 11.00 k/uL 04/18/2025 11:22 AM EDT [facility] RBC 3.73(L) 3.90 - 5.20 m/uL 04/18/2025 11:22 AM EDT [facility] Hemoglobin 11.0(L) 11.5 - 15.5 g/dL 04/18/2025 11:22 AM EDT [facility] Hematocrit 32.9(L) 36.0 - 46.0 % 04/18/2025 11:22 AM EDT [facility] MCV 88.2 80.0 - 100.0 fL 04/18/2025 11:22 AM EDT [facility] MCH 29.5 26.0 - 34.0 pg 04/18/2025 11:22 AM EDT [facility] MCHC 33.4 30.5 - 36.0 g/dL 04/18/2025 11:22 AM EDT [facility] RDW-CV 16.4(H) 11.5 - 15.0 % 04/18/2025 11:22 AM EDT [facility] Platelet Count 136(L) 150 - 400 k/uL 04/18/2025 11:22 AM EDT [facility] MPV 9.0 9.0 - 12.7 fL 04/18/2025 11:22 AM EDT [facility] Neutrophils % 66.6 % 04/18/2025 11:22 AM EDT [facility] Abs Neut 3.77 1.45 - 7.50 k/uL 04/18/2025 11:22 AM EDT [facility] Lymphocytes % 24.8 % 04/18/2025 11:22 AM EDT [facility] Abs Lymph 1.40 1.00 - 4.00 k/uL 04/18/2025 11:22 AM EDT [facility] Monocytes % 6.4 % 04/18/2025 11:22 AM EDT [facility] Abs [place] 0.36 <0.87 k/uL 04/18/2025 11:22 AM EDT [facility] Eosinophils % 1.6 % 04/18/2025 11:22 AM EDT [facility] Abs Eosin 0.09 <0.46 k/uL 04/18/2025 11:22 AM EDT [facility] Basophils % 0.2 % 04/18/2025 11:22 AM EDT [facility] Abs Baso <0.03 <0.11 k/uL 04/18/2025 11:22 AM EDT [facility] Immature Granulocytes % 0.4 % 04/18/2025 11:22 AM EDT [facility] Abs Immature Gran <0.03 <0.10 k/uL 04/18/2025 11:22 AM EDT [facility] NRBC 0.0 /100 WBC 04/18/2025 11:22 AM EDT [facility] Absolute nRBC <0.01 <0.01 k/uL 04/18/2025 11:22 AM EDT [facility] Diff Type Auto 04/18/2025 11:22 AM EDT [facility] Blood BLOOD SPECIMEN / Unknown Venipuncture / Unknown 04/18/2025 11:13 AM EDT 04/18/2025 11:13 AM EDT Daksha M Sherrie PA-C LABORATORY Final Result [facility] [address] [place] [address] from Last 3 Months Insurance [facility] HMO Care Teams Family Consumer Science Teacher Relationship Specialty Start Date End Date Nisa Shepherd RADIO ARTIST [address] [place], [place] [address] [address] PCP - General Family Medicine 09/22/22
--- OUTSIDE RECORDS SUMMARY | 2025-04-19 11:19 | XMS_ITS | Encounter Summary ---
Author Organization [facility] Address [address] [place] [address] Care Team Providers Care Second Baker Name Role Phone Candelario Sosa Primary Care Provider [phone] Trae Mccarty MD Unavailable [phone] Encounter Details Date Type Department Care Team (Late st Contact Info) Description 02/29/2024 Orders Only [facility] [address] [place] [id number] Avery Martinez DO [address] [place] [address] Carpal tunnel syndrome on right (Primary Dx) Social History Tobacco Use Types Packs/Day Years Used Date Smoking Tobacco: Unknown Alcohol Use Standard Drinks/Week Comments Defer 0 (1 standard drink = 0.6 oz pure alcohol) caffeine intake: 1-2 cups per day Comments Unknown Sex and Gender Information Value Date Recorded Sex Assigned at Female 01/11/2024 11:23 AM EST Legal Sex Female 7:09 PM EDT Gender Identity Female 01/11/2024 11:23 AM EST Sexual Orientation Choose not to disclose 2023 11:23 AM EST documented as of this encounter Plan of Treatment Not on file documented as of this encounter Visit Diagnoses Diagnosis Carpal tunnel syndrome on right- Primary Carpal tunnel syndrome documented in this encounter Care Teams Second Baker Relationship Specialty Start Date End Date Candelario Sosa [address] [place] [address] PCP - General Family Medicine 01/13/24 Trae Mccarty MD [address] [place] [address] PCP - Devoted 11/16/23 documented as of this encounter
--- OUTSIDE RECORDS SUMMARY | 2025-04-19 11:19 | XMS_ITS | Encounter Summary ---
Author Organization [facility] Address [address] [place] [address] Care Team Providers Care Consultant Internship Name Role Phone Nisa Shepherd CNP Primary Care Provider [phone] Source Comments In the event this information is protected by the Federal Confidentiality of Alcohol and Drug AbusePatient Records regulations: The Federal rules restrict any use of the information to criminally investigate or prosecute any alcohol or drug abuse patient.[facility] Reason for Visit * Reason Onset Date Comments labs/follow up 04/11/2025 Encounter Details Date Type Department Care Team (Late st Contact Info) Description 04/11/2025 Results Follow-Up Hematology/Oncology [address] [place] [place] [address] Daksha Balderas PAWillard [address] [place] [address] labs/follow up Social History Tobacco Use Types Packs/Day Years [...] is lower risk 7 05/01/2023 Data from: https://www.neighborhoodatlas.medicine.[facility]/. Last address used for calculation [address] 05/01/2023 Comments No Sex and Gender Information Value Date Recorded Sex Assigned at Not on file Legal Sex Female 10:39 AM EST Gender Identity Not on file Sexual Orientation Not on file documented as of this encounter Miscellaneous Notes * Telephone Encounter - Stacey Estrada - 04/11/2025 9:59 AM EDT Spoke to Anh, labs 04/18 at 1130 and follow up 04/25 at 11am. * Telephone Encounter - Smitha Mcmahan RN - 04/11/2025 9:52 AM EDT Daksha wants labs in the next 1-2 weeks and follow up 1 week after they are drawn to review results. Smitha Mcmahan RN * Telephone Encounter - Stacey Estrada - 04/11/2025 9:47 AM EDT Patient is scheduled for 06/28 now, is that ok or does she need moved up? * Telephone Encounter - Smitha Mcmahan RN - 04/11/2025 9:15 AM EDT Pt aware and agreeable to plan of care. She denies questions, needs or concerns at this time. PSS: Please call to schedule labs /follow up per MM below. Smitha Mcmahan RN documented in this encounter Plan of Treatment Upcoming Encounters Date Type Department Care Team (Latest Contact Info) Description 04/25/2025 11:00 AM EDT Visit (SP) Office Hematology/Oncology [address] [place] [place] [address] Daksha Balderas PA-C [address] [place] [place] [address] 3 month follow up with Daksha and lab 06/30/2025 1:45 PM EDT Office Visit [facility] [address] [place] [address] [place] [address] 3 month follow up with Daksha and lab 06/30/2025 2:00 PM EDT Visit (SP) Office Hematology/Oncology [address] [place] [address] Daksha Balderas PA-C [address] [place] [place] [address] 3 month follow up with Daksha and lab Pending Results Name Type Priority Associated Diagnoses Date /Time MONOCLONAL PROTEIN, SERUM (BLOOD) Lab Routine Anemia, unspecified type 04/18/2025 11:13 AM EDT PROTEIN ELECTROPHORESIS SERUM W/INTERP Lab Routine Anemia, unspecified type 04/18/2025 11:13 AM EDT ERYTHROPOIETIN/EPO Lab Routine Anemia, unspecified type 04/18/2025 11:13 AM EDT Scheduled Orders Name Type Priority Associated Diagnoses Orde r Schedule MONOCLONAL PROTEIN, SERUM (BLOOD) Lab Routine Anemia, unspecified type Expected: 04/11/2025, Expires: 07/11/2025 PROTEIN ELECTROPHORESIS SERUM W/INTERP Lab Routine Anemia, unspecified type Expected: 04/11/2025, Expires: 07/11/2025 ERYTHROPOIETIN/EPO Lab Routine Anemia, unspecified type Expected: 04/11/2025, Expires: 07/11/2025 documented as of this encounter Results * HAPTOGLOBIN (04/18/2025 11:13 AM EDT) Haptoglobin 155 31 - 238 mg/dL 04/18/2025 9:30 PM EDT [facility] Blood BLOOD SPECIMEN / Unknown Venipuncture / Unknown 04/18/2025 11:13 AM EDT 04/18/2025 11:13 AM EDT us Molinay Martinez [facility] Final Result Performing Organization Address City/[facility]/ZIP Co de Phone Number [facility] [address] [id number], [place] * VITAMIN B12 (04/18/2025 11:13 AM EDT) Vitamin B12 854 232 - 1,245 pg/mL 04/18/2025 5:16 PM EDT [facility] Blood BLOOD SPECIMEN / Unknown Venipuncture / Unknown 04/18/2025 11:13 AM EDT 04/18/2025 11:13 AM EDT Daksha Balderas PA-C LABORATORY Final Result Performing Organization Address [facility]/ZIP Co de Phone Number [facility] [address] [id number], [place] * THYROID STIMULATING HORMONE (04/18/2025 11:13 AM EDT) TSH 1.250 0.270 - 4.200 mIU/L 04/18/2025 9:41 PM EDT [facility] Blood BLOOD SPECIMEN / Unknown Venipuncture / Unknown 04/18/2025 11:13 AM EDT 04/18/2025 11:13 AM EDT Daksha Martinez [facility] Final Result [facility] [address] [address], [place] * IRON AND TIBC (04/18/2025 11:13 AM EDT) Iron 73 41 - 186 ug/dL 04/18/2025 9:30 PM EDT [facility] TIBC 336 232 - 386 ug/dL 04/18/2025 9:30 PM EDT [facility] Transferrin Saturation 21.7 15.0 - 57.0 % 04/18/2025 9:30 PM EDT [facility] Blood BLOOD SPECIMEN / Unknown Venipuncture / Unknown 04/18/2025 11:13 AM EDT 04/18/2025 11:13 AM EDT Daksha Balderas PA-C LABORATORY Final Result Performing Organization Address [facility] de Phone Number [facility] [phone], [place] * FOLATE, SERUM (04/18/2025 11:13 AM EDT) Folate >20.0 >4.7 ng/mL 04/18/2025 5:16 PM EDT [facility] Comment: A result of > 20 ng/mL is not necessarily indicative of a pathologic or treatable condition: it reflects a limitation of the test methodology. Assay reference range: 4.8 to 24.2 ng/mL. Suitable for detection of folate deficiency. Reference: Folate III (Folate III) [package insert V 1.0 Citizen Of [place]]. [facility], [place], [place]: September 2015. Blood BLOOD SPECIMEN / Unknown Venipuncture / Unknown 04/18/2025 11:13 AM EDT 04/18/2025 11:13 AM EDT us Daksha Balderas PA-C LABORATORY Final Result Performing Organization Address City/[facility] Co de Phone Number [facility] [phone], [place] * (ABNORMAL) FERRITIN (04/18/2025 11:13 AM EDT) Ferritin 398.0(H) 14.7 - 205.1 ng/mL 04/18/2025 9:41 PM EDT [facility] Blood BLOOD SPECIMEN / Unknown Venipuncture / Unknown 04/18/2025 11:13 AM EDT 04/18/2025 11:13 AM EDT us Daksha Balderas PA-C LABORATORY Final Result [facility] [address] [facility] [address] [place] [address], [place] * (ABNORMAL) COMPLETE BLOOD COUNT AND DIFFERENTIAL (04/18/2025 11:13 AM EDT) WBC 5.65 3.70 - 11.00 k/uL 04/18/2025 11:22 AM EDT [facility] RBC 3.73(L) 3.90 - 5.20 m/uL 04/18/2025 11:22 AM EDT [facility] Hemoglobin 11.0(L) 11.5 - 15.5 g/dL 04/18/2025 11:22 AM EDT [facility] Hematocrit 32.9(L) 36.0 - 46.0 % 04/18/2025 11:22 AM EDT [facility] MCV 88.2 80.0 - 100.0 fL 04/18/2025 11:22 AM EDT [facility] MCH 29.5 26.0 - 34.0 pg 04/18/2025 11:22 AM EDT [facility] MCHC 33.4 30.5 - 36.0 g/dL 04/18/2025 11:22 AM EDT [facility] RDW-CV 16.4(H) 11.5 - 15.0 % 04/18/2025 11:22 AM EDT [facility] Platelet Count 136(L) 150 - 400 k/uL 04/18/2025 11:22 AM EDT [facility] MPV 9.0 9.0 - 12.7 fL 04/18/2025 11:22 AM EDT [facility] Neutrophils % 66.6 % 04/18/2025 11:22 AM EDT [facility] Abs Neut 3.77 1.45 - 7.50 k/uL 04/18/2025 11:22 AM EDT [facility] Lymphocytes % 24.8 % 04/18/2025 11:22 AM EDT [facility] Abs Lymph 1.40 1.00 - 4.00 k/uL 04/18/2025 11:22 AM EDT [facility] Monocytes % 6.4 % 04/18/2025 11:22 AM EDT [facility] Abs [place] 0.36 <0.87 k/uL 04/18/2025 11:22 AM EDT [facility] Eosinophils % 1.6 % 04/18/2025 11:22 AM EDT [facility] Abs Eosin 0.09 <0.46 k/uL 04/18/2025 11:22 AM EDT [facility] Basophils % 0.2 % 04/18/2025 11:22 AM EDT [facility] Abs Baso <0.03 <0.11 k/uL 04/18/2025 11:22 AM EDT [facility] Immature Granulocytes % 0.4 % 04/18/2025 11:22 AM EDT [facility] Abs Immature Gran <0.03 <0.10 k/uL 04/18/2025 11:22 AM EDT [facility] NRBC 0.0 /100 WBC 04/18/2025 11:22 AM EDT [facility] Absolute nRBC <0.01 <0.01 k/uL 04/18/2025 11:22 AM EDT [facility] Diff Type Auto 04/18/2025 11:22 AM EDT [facility] Blood BLOOD SPECIMEN / Unknown Venipuncture / Unknown 04/18/2025 11:13 AM EDT 04/18/2025 11:13 AM EDT us Daksha Balderas PA-C LABORATORY Final Result [facility] [address] [place] [address] * (ABNORMAL) RETICULOCYTE COUNT (04/18/2025 11:13 AM EDT) Retic % 4.1(H) 0.4 - 2.0 % 04/18/2025 11:22 AM EDT [facility] Abs Retic 0.154(H) 0.018 - 0.100 M/uL 04/18/2025 11:22 AM EDT [facility] Blood BLOOD SPECIMEN / Unknown Venipuncture / Unknown 04/18/2025 11:13 AM EDT 04/18/2025 11:13 AM EDT us Daksha Balderas PA-C LABORATORY Final Result Performing Organization Address [facility]/ZIP Co de Phone Number [facility] [address] [place] [address] * (ABNORMAL) LACTATE DEHYDROGENASE (04/18/2025 11:13 AM EDT) Pathologist [facility] LD 236(H) 135 - 214 U/L 04/18/2025 11:54 AM EDT [facility] Blood BLOOD SPECIMEN / Unknown Venipuncture / Unknown 04/18/2025 11:13 AM EDT 04/18/2025 11:13 AM EDT us Daksha Balderas PA-C LABORATORY Final Result [facility] [address] [place] [address] * (ABNORMAL) COMPREHENSIVE METABOLIC PANEL (04/18/2025 11:13 AM EDT) Pathologist [facility] Protein, Total 6.4 6.3 - 8.0 g/dL 04/18/2025 11:54 AM EDT [facility] Albumin 4.2 3.9 - 4.9 g/dL 04/18/2025 11:54 AM EDT [facility] Calcium, Total 10.0 8.5 - 10.2 mg/dL 04/18/2025 11:54 AM [facility] Bilirubin, Total 0.8 0.2 - 1.3 mg/dL 04/18/2025 11:54 AM [facility] Alkaline Phosphatase 157(H) 34 - 123 U/L 04/18/2025 11:54 AM [facility] AST 18 13 - 35 U/L 04/18/2025 11:54 AM [facility] ALT 17 7 - 38 U/L 04/18/2025 11:54 AM [facility] Glucose 154(H) 74 - 99 mg/dL 04/18/2025 11:54 AM [facility] Comment: The [place] Diabetes Association (ADA) provides guidance for cutoff [...] Standards of Medical Care in Diabetes 2016, [place] Diabetes Association. Diabetes Care. 2016.39(Suppl 1). BUN 33(H) 7 - 21 mg/dL 04/18/2025 11:54 AM [facility] Creatinine 1.16(H) 0.58 - 0.96 mg/dL 04/18/2025 11:54 AM [facility] Sodium 140 136 - 144 mmol/L 04/18/2025 11:54 AM [facility] Potassium 4.9 3.7 - 5.1 mmol/L 04/18/2025 11:54 AM [facility] Chloride 102 98 - 107 mmol/L 04/18/2025 11:54 AM EDT [facility] CO2 28 22 - 30 mmol/L 04/18/2025 11:54 AM EDT [facility] Anion Gap 10 8 - 15 mmol/L 04/18/2025 11:54 AM EDT [facility] Estimated Glomerular Filtration Rate 49(L) >=60 mL/min/1. 73m 04/18/2025 11:54 AM EDT [facility] Comment:Estimated Glomerular Filtration Rate (eGFR) [...] EDT Daksha Balderas PA-C LABORATORY Final Result [facility] [address] [place] [address] documented in this encounter Visit Diagnoses Diagnosis Anemia, unspecified type- Primary documented in this encounter Care Teams Consultant Internship Relationship Specialty Start Date End Date Nisa Shepherd CNP [address] [place] [id number] PCP - General Family Medicine 09/22/22 documented as of this encounter
--- OUTSIDE RECORDS SUMMARY | 2025-04-19 11:20 | XMS_ITS | Encounter Summary ---
Author Organization [facility] Address [address] [place] [address] Care Team Providers Care Casting Director Name Role Phone Nisa Shepherd CNP Primary Care Provider [phone] Source Comments In the event this information is protected by the Federal Confidentiality of Alcohol and Drug AbusePatient Records regulations: The Federal rules restrict any use of the information to criminally investigate or prosecute any alcohol or drug abuse patient.[facility] Encounter Details Date Type Department Care Team (Latest Contact Info) Description 04/07/2025 Travel Social History Tobacco Use Types Packs/Day Years [...] is lower risk 7 05/01/2023 Data from: https://www.neighborhoodatlas.medicine.[facility].edu/. Last address used for calculation [address] [...] 11:00 AM EDT Visit (SP) Office Hematology/Oncology [address] [place] [address] [place] [address] Daksha Balderas PA-C [address] [place] [address] 3 month follow up with Daksha and lab 06/30/2025 1:45 PM EDT Office Visit [facility] [address] [place] [address] [place] [address] 3 month follow up with Daksha and lab 06/30/2025 2:00 PM EDT Visit (SP) Office Hematology/Oncology [address] [place] [address] [place] [address] Daksha Balderas PA-C [address] [place] [address] 3 month follow up with Daksha and lab documented as of this encounter Visit Diagnoses Not on filedocumented in this encounter Care Teams Casting Director Relationship Specialty Start Date End Date Nisa Shepherd CNP [facility] [place] [address] PCP - General Family Medicine 09/22/22 documented as of this encounter
--- OUTSIDE RECORDS SUMMARY | 2025-04-19 11:20 | XMS_ITS | Encounter Summary ---
Author Organization [facility] Address [address] [place] [address] Care Team Providers Care Device Processing Engineer Name Role Phone Candelario Sosa Primary Care Provider [phone] Trae Mccarty MD Unavailable [phone] Encounter Details Date Type Department Care Team (Late st Contact Info) Description 02/09/2024 Abstract [facility] [address] [place] [address] Shi Ugarte [place] Social History Tobacco Use Types Packs/Day Years [...] on filedocumented in this encounter Care Teams Device Processing Engineer Relationship Specialty Start Date End Date Candelario Sosa [address] [place] [address] PCP - General Family Medicine 01/13/24 Trae Mccarty MD [address] [place] [address] PCP - [facility]oted 11/16/23 documented as of this encounter
--- OUTSIDE RECORDS SUMMARY | 2025-04-19 11:20 | XMS_ITS | Clinical Summary ---
Author Organization [facility] Address [address] [place] [address] Care Team Providers Care Frame Expander Name Role Phone Candelario Sosa Primary Care Provider [phone] Trae Mccarty MD Unavailable [phone] Allergies Active Allergy Reactions Criticality Noted Date Comments Acetaminophen 10/20/2023 Acetaminophen-Codeine Other High 10/01/2022 pt states she is unwilling to try even plain tylenol after this experience even though she states she took tylenol prior to this and had no problems Codeine Other 09/26/2022 Upset stomach Medications allopurinol (Zyloprim) 300 MG tablet Take 300 mg by mouth Daily Active aspirin 81 MG EC tablet Take 81 mg by mouth 1 (one) time each day at the same time Active atenolol (Tenormin) 50 MG tablet Take 50 mg by mouth Daily for blood pressure Active atorvastatin (Lipitor) 20 MG tablet Take 20 mg by mouth Daily for cholesterol Active cholecalciferol (Vitamin D-3) 25 MCG (1000 UT) tablet Take 1,000 Units by mouth in the morning. Active diclofenac (Voltaren) 75 MG EC tablet Take 75 mg by mouth in the morning. Active furosemide (Lasix) 20 MG tablet Take 20 mg by mouth in the morning. Active glimepiride (Amaryl) 2 MG tablet Take 2 mg by mouth in the morning and 2 mg before bedtime. for diabetes. Active Fluzone High-Dose Quadrivalent syringe Inject 0.7 mL into the shoulder, thigh, or buttocks 1 (one) time 11/25/19 24 Active lisinopril-hydroCH LOROthiazide 20-12.5 MG tablet Take 1 tablet by mouth Daily for blood pressure Active magnesium oxide (Mag-Ox) 400 (240 Mg) MG tablet Take 400 mg by mouth in the morning and 400 mg before bedtime. 02/04/20 23 Active metFORMIN (Glucophage) 1000 MG tablet Take 1,000 mg by mouth in the morning and 1,000 mg before bedtime. for diabetes. Active omeprazole (PriLOSEC) [address] capsule Take 20 mg by mouth in the morning. Active Januvia 50 MG tablet Take 50 mg by mouth Daily for diabetes Active rOPINIRole (Requip) 2 MG tabletIndications: Other polyneuropathy Take 1 tablet (2 mg) by mouth at bedtime 90 tablet 3 03/29/20 24 Active gabapentin (Neurontin) 300 MG capsuleIndications :Other polyneuropathy Take 1 capsule (300 mg) by mouth in the morning and 1 capsule (300 mg) in the evening and 1 capsule (300 mg) before bedtime. 270 capsule 12/14/19 25 026 Active pioglitazone (Actos) 15 MG tablet Take 15 mg by mouth Daily 01/02/20 25 Active baclofen (Lioresal) 10 MG tablet Take 10 mg by mouth in the morning and 10 mg before bedtime. Active diphenhydrAMINE (BENADryl) 12.5 MG chewable tablet 25 mg 09/29/20 24 Active Active Problems Problem Noted Date Diagnosed Date Transient ischemic attack 08/16/2024 Palpitations 08/16/2024 Syncope and collapse 03/29/2024 Paresthesia 03/28/2024 Overview (07/20/2024): Patient also experiences chronic right handed paresthesia and pain into first digit of her 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 She also has been told she has history of sciatica on the right leg with significant neuropathy. EMGs were recommended outpatient to further evaluate paresthesia in RUE and lower extremities. Balance problem 03/28/2024 Polyneuropathy 03/28/2024 Overview (07/20/2024): She also has been told she has history of sciatica on the right leg with significant neuropathy, which affects her balance. 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 She does have diabetes, which is likely the cause of the polyneuropathy. Most recent A1C 7.6%. Her PCP prescribes gabapentin which has lessened her neuropathic pain. She is having an increase in symptoms with associated cramping type pain. She does not want to start new medications at this time and states PT is not covered by her insurance. She was advised to increase her daily water intake to limit cramping. We discussed the high morbidity and mortality associated with falls and the fat that she has multiple risk factors that increases her chance of falls. We discussed fall precautions at length including taking up throw rugs, changing position slowly, maintaining hydration, having a light on at night, grab bars in the shower and ensuring pets are not a tripping adan if applicable. Autonomic dysfunction 03/28/2024 Peripheral neuropathy 03/28/2024 Carpal tunnel syndrome, bilateral upper limbs Carpal tunnel syndrome of right wrist 03/28/2024 Overview (07/20/2024): Patient also experiences chronic right handed paresthesia and pain into first digit of her 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 RUE EMG 03/31/2023 revealed a median neuropathy at or distal to the wrist, such as CTS, mild in degree electrically on the right. She was offered gabapentin increase or ortho referral for her increase in symptoms, but she would like to hold off on this for now. Mixed hearing loss, bilateral 02/10/2024 Tympanic membrane central perforation, bilateral 02/10/2024 Acquired hallux valgus of right foot 02/02/2024 Acquired hammer toe deformity of lesser toe of r ight foot 02/02/2024 Diabetes mellitus 02/02/2024 Neuropathy of lower extremity 02/02/2024 Type 2 diabetes mellitus wit hout complication, without long-term current use of insulin 02/02/2024 Stage 3b chronic kidney disease (HCC) 01/29/2024 Iron deficiency anemia due to chronic blood loss 10/03/2022 GERD (gastroesophageal reflux disease) 0 History of malignant neoplasm of skin 09/05/2010 Arthropathy 09/05/2010 Asymptomatic varicose veins 09/05/2010 Depressive disorder 09/05/2010 Essential hypertension 09/05/2010 Encounters Date Type Department Care Team Description 03/06/2025 10:00 AM EDT Office Visit [facility] [address] [place] [phone] Tammy Herman PA Transient ischemic attack (Primary Dx); Polyneuropathy; Syncope and collapse; Carpal tunnel syndrome, bilateral upper limbs 03/06/2025 Bamboo flowsheet [facility] [address] [place] [phone] Tammy Herman PA from Last 3 Months Family History Medical History Relation Name Comments Diabetes Brother Heart disease Brother Hypertension Brother Stroke Brother Cancer Father Hypertension Father Cancer Mother Diabetes Mother Heart disease Mother Hypertension Mother Stroke Mother Relation Name Status Comments Brother x3 Father Mother Social History Tobacco Use Types Packs/Day Years Used Date Smoking Tobacco: Never Smokeless Tobacco: Never Tobacco Cessation:Counseling Given: Not Answered Alcohol Use Standard Drinks/Week Comments Defer 0 (1 standard drink = 0.6 oz pure alcohol) caffeine intake: 1-2 cups per day Comments Unknown Sex and Gender Information Value Date Recorded Sex Assigned at Female 01/11/2024 11:23 AM EST Legal Sex Female 7:09 PM EDT Gender Identity Female 01/11/2024 11:23 AM EST Sexual Orientation Choose not to disclose 2023 11:23 AM EST Last Filed Vital Signs Vital Sign Reading Time Taken Comments Blood Pressure 154/68 03/06/2025 9:47 AM EDT Pulse 77 08/16/2024 8:51 AM EDT Temperature 36.5 C (97.7 F) 02/15/2024 10:12 AM EDT Respiratory Rate - - Oxygen Saturation 98% 03/29/2024 2:36 PM EDT Inhaled Oxygen Concentration - - Weight 98.4 kg (217 lb) 03/06/2025 9:47 AM EDT Height 154.9 cm (5' 1 ) 03/06/2025 9:47 AM EDT Body Mass Index 41 03/06/2025 9:47 AM EDT Plan of Treatment Health Maintenance Due Date Last Done Comments Diabetes: Hemoglobin A1C 1950 Diabetes: Retinopathy Screening 1958 Diabetes: Urine Protein Screening 1967 Pneumococcal Vaccine: 65+ Ye ars (2 of 2 - PCV) 08/16/2019 08/16/2018 Colonoscopy Discontinued 06/12/2022 Colorectal Cancer Screening Discontinued Influenza Vaccine Completed 08/24/2024, , 08/27/2022, Additional history exists CT Colonography Discontinued FIT-DNA Discontinued FIT Discontinued FOBT Discontinued Sigmoidoscopy Discontinued Insurance [employer] Care Teams Frame Expander Relationship Specialty Start Date End Date Candelario Sosa [address] [facility] [place] [address] PCP - General Family Medicine 01/13/24 Trae Mccarty MD [address] [place] [address] PCP - Devoted 11/16/23
--- OUTSIDE RECORDS SUMMARY | 2025-04-19 11:20 | XMS_ITS | Patient Health Record ---
Author Organization The [facility] in [place] Address [address] [place] [address] Care Team Providers Care Straddle Truck Operator Name Role Phone Sheila DOS SANTOSCandelario Primary Care Provider Unavail Regi Shane Unavailable [phone] Allergies Allergen (clinical drug ingredient) Drug/Non Drug Allergy documented on EMR Reaction Allergy Type Onset Date Status codeine Codeine stomach upset Drug Allergy Act jean Reason For Referral No Information Medications Medication SIG (Take, Route, Fr equency, Duration) Notes Start Date End Date Status Rezdiffra Active Januvia Active rOPINIRole HCl Activ e Allopurinol Active Vitamin B 12 Active Aspirin 81 Active Vitamin C Active Atenolol Active Vitamin D Active Atorvastatin Calcium Active Gabapentin Active Glimepiride Active Lisinopril Active Magnesium Active PriLOSEC Active Vital Signs Weight 213 lbs 12/29/2024 Encounters Encounter Location Date Provider Diagnosis [facility] (PODIATRY) [address] [place] [address] [place] [address] 12/29/2024 Regi Jacinto Diabetes E11.9 Assessments Encounter Date Diagnosis (ICD Code) Assessment Notes Treatment Notes Treatment Clinical Notes Section Notes 12/29/2024 Diabetes (ICD-10 - E11.9) Plan Of Treatment No Information Insurance Providers Payer Name Payer Address Payer Phone Subscriber Number Group Number Insured Name Patient Relationship to Insured Coverage Start Date Coverage End Date [facility] [employer] [address] [place] [address] [phone] [id number] Nikhil Anh Self - patient is the insured Medical (General) History Medical History History ICD Code anemia arthritis diabetes gout high blood pressure high cholesterol liver disease kidney disease varicose veins Surgical History Surgery Date(Month/Year) cholecystectomy hysterectomy knee eye carpal tunnel skin cancer removed
--- OUTSIDE RECORDS SUMMARY | 2025-04-19 11:20 | XMS_ITS | Patient Health Record ---
Author Organization [facility] Address [address] [place] [address] Care Team Providers Care Measurement Psychologist Name Role Phone JwhomerCandelario Primary Care Provider Unavailabl e Reason For Referral No Information Plan Of Treatment No Information Insurance Providers Payer Name Payer Address Payer Phone Subscriber Number Group Number Insured Name Patient Relationship to Insured Coverage Start Date Coverage End Date [facility] [address] [place] [address] [id number] [id number] CHARLY MEJIA Self - patient is the insured
--- NOTE | 2025-04-19 11:52 | PM.CN ---
Consult Note: HPI Data of Consult Patient: known to practice within the last 3 years Requesting Physician: Janelle Day NP Primary Care Provider: VINAY MATTA Consult Narrative Reason for consult: f/u Narrative: 74yof who presents for evaluation. longstanding history of low back pain, now notes worsening bilateral leg weakness over past several months. lumbar xr reviewed, significant for multilevel spondylosis and sij degeneration. continues in a series of provider directed home exercises >6 weeks, without lasting benefit. uses gabapentin. denies adverse med side effects. recent MRI consistent with multilevel ddd, stenosis, and spondylosis. previously underwent right L4-5 L5-S1 TFESI with mild relief per pt. most recently on 03-20-25 underwent bilateral L4/5 L5/S1 facet medial branch block #1 with no improvement in low back pain while anesthetized. case reviewed with Dr Bruner who would rather pt undergo a spinal cord stimulator trial instead of vertiflex due to severe narrowing in lumbar spine. cc:: CC: Janelle Day NP Review of Systems ROS Status of ROS 10 or more systems reviewed and unremarkable except as noted in history and below [facility] Medical History (Updated 03/23/25 @ 17:54 by KARO Herman) Anemia ?D64.9 - Anemia, unspecified (ICD-10) Hearing deficit ?H91.90 - Unspecified hearing loss, unspecified ear (ICD-10) Carpal tunnel syndrome ?G56.00 - Carpal tunnel syndrome, unspecified upper limb (ICD-10) Acid reflux ?K21.9 - Gastro-esophageal reflux disease without esophagitis (ICD-10) Diabetes ?E11.9 - Type 2 diabetes mellitus without complications (ICD-10) Kidney stone ?N20.0 - Calculus of kidney (ICD-10) COLTEN on CPAP ?G47.33 - Obstructive sleep apnea (adult) (pediatric) (ICD-10) Sleep apnea ?G47.30 - Sleep apnea, unspecified (ICD-10) High cholesterol ?E78.00 - Pure hypercholesterolemia, unspecified (ICD-10) Palpitations ?R00.2 - Palpitations (ICD-10) HTN (hypertension) ?I10 - Essential (primary) hypertension (ICD-10) Surgical History History of eye surgery ?Z98.890 - Other specified postprocedural states (ICD-10) History of carpal tunnel release ?Z98.890 - Other specified postprocedural states (ICD-10) History of hysterectomy ?Z90.710 - Acquired absence of both cervix and uterus (ICD-10) Hx of cholecystectomy ?Z90.49 - Acquired absence of other specified parts of digestive tract (ICD-10) Social History Smoking status: Never smoker Meds Home Medications and Allergies Home Medications ?Medication ?Instructions ?Recorded ?Confirmed ?Type allopurinol 300 mg tablet 300 mg PO DAILY 01/21/24 03/20/25 History atenolol 50 mg tablet 50 mg PO Q24H 01/21/24 03/20/25 History atorvastatin 20 mg tablet 20 mg PO DAILY 01/21/24 03/20/25 History gabapentin 300 mg capsule 300 mg PO TID 01/21/24 03/20/25 History glimepiride 2 mg tablet 2 mg PO BID 01/21/24 03/20/25 History lisinopril 20 1 tab PO DAILY 01/21/24 03/20/25 History mg-hydrochlorothiazide 12.5 mg tablet magnesium oxide 400 mg (241.3 mg 400 mg PO DAILY 01/21/24 03/20/25 History magnesium) tablet ropinirole 2 mg tablet 2 mg PO DAILY 01/21/24 03/20/25 History sitagliptin phosphate 50 mg tablet 50 mg PO DAILY 01/21/24 03/20/25 History (Januvia) ascorbic acid (vitamin C) 500 mg 500 mg PO DAILY 04/07/24 03/20/25 History chewable tablet (Acerola C) aspirin 81 mg tablet,delayed 81 mg PO DAILY 04/07/24 03/20/25 History release (Adult Low Dose Aspirin) cholecalciferol (vitamin D3) 25 1,000 unit PO DAILY 04/07/24 03/20/25 History mcg (1,000 unit) chewable tablet (VitaJoy Daily D) mecobalamin (vitamin B12) 1,000 1,000 mcg PO DAILY 04/07/24 03/20/25 History mcg chewable tablet omeprazole 20 mg capsule,delayed 20 mg PO DAILY 01/10/25 03/20/25 History release pioglitazone 15 mg tablet 15 mg PO BID 01/10/25 03/20/25 History resmetirom 80 mg tablet (Rezdiffra) 80 mg PO DAILY 01/10/25 02/20/25 History baclofen 10 mg tablet 10 mg PO Q12H 02/15/25 03/20/25 History loratadine 10 mg tablet (Claritin) 10 mg PO DAILY 02/20/25 03/20/25 History Allergies Allergy/AdvReac Type Severity Reaction Status Date / Time codeine AdvReac Intermediate gi upset Verified 03/20/25 09:38 Exam Constitutional Documenting provider has reviewed patient's vital signs: yes Common normals: no apparent distress, oriented x3, healthy appearing, alert and well nourished General appearance: cooperative HENMT Common normals: normocephalic, hearing grossly normal bilaterally and moist oral mucous membranes Head and scalp: normocephalic Eye Common normals: PERRL Pupil: PERRL Neck & C-Spine Common normals: full ROM General: normal visual inspection Chest Common normals: inspection of chest normal Respiratory Common normals: normal respiratory effort, no retractions and no use of accessory muscles Back & Pelvis Lumbar spine/lower back: ROM limited, pain with ROM and lumbar spinal tenderness Other: sensation intact BLE strength 5/5 in BLE increased low back and BLE pain with standing and walking, improved with forward flexion and sitting Extremity Common normals: normal to inspection and full ROM Neuro Common normals: oriented x3 Sensorium/orientation: alert Motor exam: no movement abnormalities noted Psych Common normals: mental status grossly normal, thought process normal, cooperative, affect normal, speech normal and activity/motor behavior normal Speech: normal speech Thought process: normal thought process Results Additional Findings Additional findings: If on a controlled substance or opioids, I have checked an [place] report on this patient and there are no aberrancies noted in the prescribing history.??If on a controlled substance or opioid a drug screen was completed and reviewed within the last year, and if there has not been a drug screen completed we ordered one today to monitor higher risk, state monitored pain medication use. As part of providing excellent, safe, comprehensive care, the following was completed at our patient's visit: 1. A medication reconciliation and review to ensure accurate knowledge of current/active medications, including asking our patients to inform us about any glqu-yza-dokzwlf medications or herbal remedies/nutritional supplements/alternative remedies. 2. A review to specifically ensure our patients have had annual screening for screening for depression, screening for tobacco use, and screening for unhealthy alcohol use. For concerning screenings had a discussion with the patient, provided patient education, and recommended follow-up with primary care provider when appropriate. If patient noted with a risk of falling, they received education on strength, gait, and balance training to prevent future risk of falling. Portions of this note may have been carried over from the previous visit and updated as appropriate. Please note this office utilizes paper charting in addition to the electronic medical record. A list of current medications, vitals, and PMH is available there as the clinical staff outside of myself do not have access to [employer] charting during the clinic day operations. As part of providing quality comprehensive care the current medications, vitals, and PMH were reviewed in the paper chart. Assessment and Plan Assessment and Plan (1) Lumbar stenosis with neurogenic claudication: Assessment and Plan: The patient has had over 3 months of moderate to severe low back pain with functional impairment and inadequate response to conservative care including NSAIDS (unless there are contraindication such as concurrent blood thinners), multiple oral or topical pain medications, and home exercise program/physical therapy.? Patient has completed >6 weeks of guided home exercise program and/or formal physical therapy program without relief of their symptoms.? ALF 32% with moderate to severe pain with standing, walking, ADLs, impacting social life and travel (2) Lumbar spondylosis: Plan 74yof who presents for evaluation. failed conservative measures, as noted. imaging reviewed, as noted. pt declining NS consultation, is not interested in any NS interventions due to risks and age. given symptoms and imaging findings, seeing as pt has failed to benefit from lumbar ESIs and MBBs and is not interested in NS intervention we recommend pt undergo [facility] scienfific 2 lead spinal cord stimulator trial under fluoroscopy with MAC sedation for lumbar stenosis with NC. 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 pt to complete psychiatric evaluation prior to trial. risks vs benefits reviewed with pt. all questions answered at this time. f/u in office for lead removal.
== END 2025-04-19 11:18 | disposition home or self-care (01) ==
LOC: PM 11:17
PROVIDERS: PCP Family Medicine; Visit Provider Nurse Practitioner
DX: M48.062 Spinal stenosis, lumbar region with neurogenic claudication (principal); M47.816 Spondylosis without myelopathy or radiculopathy, lumbar region
CPT/HCPCS: G0463

== ENCOUNTER 2025-06-29 13:39 | Outpatient (OUT) | payer OTHER, SELFPAY ==
--- OUTSIDE RECORDS SUMMARY | 2024-12-29 10:00 | XMS_ITS ---
Author Organization [facility] in [place] Address [address] [place] [address] Care Team Providers Care Floorperson Name Role Phone Sheila DOS SANTOSCandelario Primary Care Provider Unavail Regi Shane Unavailable [phone] Allergies Allergen (clinical drug ingredient) Drug/Non Drug Allergy documented on EMR Reaction Allergy Type Onset Date Status codeine Codeine stomach upset Drug Allergy Act jean REASON FOR VISIT diabetic foot/ nail care Medications Medication SIG (Take, Route, Fr equency, Duration) Notes Start Date End Date Status Rezdiffra Active rOPINIRole HCl Activ e Vitamin B 12 Active Vitamin C Active Vitamin D Active Gabapentin Active Glimepiride Active Lisinopril Active Magnesium Active PriLOSEC Active Januvia Active Allopurinol Active Aspirin 81 Active Atenolol Active Atorvastatin Calcium Active Vital Signs Weight 213 lbs 12/29/2024 Encounters Encounter Location Date Provider Diagnosis [facility] (PODIATRY) [address] [place] [address] [place] [address] 12/29/2024 Regi Jacinto Diabetes E11.9 Assessments Encounter Date Diagnosis (ICD Code) Assessment Notes Treatment Notes Treatment Clinical Notes Section Notes 12/29/2024 Diabetes (ICD-10 - E11.9) Plan Of Treatment No Information Progress Notes * Anh MEJIADOB:1950 (74 yo F)Acc No.[id number]:12/29/2024 New Patient Patient: Anh CHEN Provider: Josh Jacinto PA-C :1950 A ge:73 Y S ex:Female Date:12/29/2024 Address:[address] [place] [address] [place], [id number] Pcp:Candelario Sosa, DO Check In:02:12 PM ESTCheck O ut:02:30 PM EST Subjective: * Chief Complaints: * D iabetic foot/ nail care * HPI: G eneral: Pt here for routine nail trimming. All nails 1 throught 10 were trimmed and filed without incident. Pt pleased. * Active Problem List ?Problem List has not been verified* Medical History: * Surgical History: c holecystectomy hysterectomy knee eye carpal tunnel skin cancer removed * Hospitalization/Major Diagno stic Procedure: N o Hospitalization History. * Family History: N o Family History documented.. * Medications: T akingAllopurinol Aspirin 81 Atenolol Atorvastatin Calcium Gabapentin Glimepiride Januvia Lisinopril Magnesium PriLOSEC Rezdiffra rOPINIRole HCl Vitamin B 12 Vitamin C Vitamin D Medication List reviewed and reconciled with the patientTaking Allopurinol Taking Aspirin 81 Taking Atenolol Taking Atorvastatin Calcium Taking Gabapentin Taking Glimepiride Taking Januvia Taking Lisinopril Taking Magnesium Taking PriLOSEC Taking Rezdiffra Taking rOPINIRole HCl Taking Vitamin B 12 Taking Vitamin C Taking Vitamin D Medication List reviewed and reconciled with the patient * Allergies: C odeine: stomach upsetno[Allergies Verified] Objective: * Vitals: W t:213lbs, Wt-k.62 kg. Assessment: * Assessment: 1. D iabetes - E11.9 (Primary) Plan: * Treatment: * Procedure Codes: * * Sign off status: Completed Visit Status: C HK (Check Out) true * Provider: Josh Jacinto PA-C Date: 0 12/29/2024 Generated for Param guevara/[place]/eTransmitting on: 0 06/29/2025 01:43 PM EDT History and Physical Notes * HPI (History of Present Illness) Category Sub-Category Detail Notes Category Not es General Pt here for rou daquan nail trimming. All nails 1 throught 10 were trimmed and filed without incident. Pt pleased.
--- OUTSIDE RECORDS SUMMARY | 2025-06-26 20:32 | XMS_ITS | Continuity of Care Document ---
Author Organization [facility] Address [address] [place] [address] Phone Care Team Providers Care Clothes Wringer Name Role Phone Jwhomer Candelario DOS SANTOS Primary Care Provider Verónica Ugarte MD Referring Provider Bradley Rowland MD Attending Provider Candelario Sosa DO Attending Provider [phone] Iam Stewart Other Provider Care Teams Patient Care Team Team Status: Active Member Role Status Dates Candelario Sosa DO Primary Care Provider Active Visit Care Team Team Status: Active Member Role Status Dates Candelario Sosa DO Primary Care Provider Active Start: June 08, 2025 Verónica Ugarte MD Referring Provider Active Start: June 08, 2025 Verónica Ugarte MD Other Provider Active Sta rt: June 08, 2025 Bradley Rowland MD Attending Provider Active Start: June 08, 2025 Patient Care Team Team Status: Inactive Member Role Status Dates Candelario Sosa DO Primary Care Provider Active Start: June 26, 2025 End: June 26, 2025 Candelario Sosa DO Attending Provider Active St art: June 26, 2025 End: June 26, 2025 Marilyn Stewart MD Other Provider Active Start: [facility] 2024 End: June 26, 2025 Chief Complaint and Reason for Visit Chief Complaint Admit Date R63.4 K21.9 D64.9 K74.00 June 08, 2025 12:08pm E83.42 N25.81 E78.5 June 26, 2025 9: 19am Allergies, Adverse Reactions, Alerts Allergen Type Severity Reaction Last Updated Verified Status acetaminophen Allergy Unknown Not allergic t o tylenol December 27, 2024 3:20pm Yes Active codeine Allergy Unknown Dizziness December 27, 2024 3:20pm Yes Active Social History Smoking Status Status Start Date End Date Date of Observa tion Never smoked tobacco (finding) July 21, 2024 3:59pm Observation Status Observation Response Date of Response Legal Sex Female (finding) Sex Assigned At Female [birth year] Family History Relationship Condition Age at Onset Recorded Date/T elsie father Malignant neoplasm Unknown mother Diabetes mellitus Unknown Congestive heart failure Unknown Chronic obstructive pulmonary disease Unk nown Malignant neoplasm Unknown Cerebrovascular accident (CVA) Unknown brother Diabetes mellitus Unknown Congestive heart failure Unknown brother Multiple sclerosis Unknown father Unknown mother Unknown Problems Active Problems Medical Problem Onset Date Status Insomnia Unknown Active Obstructive sleep apnea Unknown Active 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 Unknown Active Secondary hyperparathyroidism Unknown Ac tive Slurred speech Unknown Active Diabetes Unknown Active Acute viral syndrome Unknown Active Chronic kidney disease, stage III (moderate) Unk nown Active Hyperlipidemia Unknown Active Restless leg syndrome Unknown Active Syncope Unknown Active Essential (primary) hypertension Unknown Active Paresthesias in right hand Unknown Activ e Acute UTI Unknown Active Anemia of renal disease Unknown Active Hypertension Unknown Active Hypomagnesemia Unknown Active Inactive/Resolved Problems Medical Problem Onset Date Status CRESENCIO (acute kidney injury) Unknown Resolv ed Hypertensive urgency Unknown Resolved COVID-19 Unknown Resolved Heart palpitations Unknown Resolved Slurred speech Unknown Resolved Hypertensive chronic kidney disease with stage 1 through stage 4 chronic kidney disease, or unspecified chronic kidney disease Unknown Resolved Acute bronchitis Unknown Resolved Medications Medication Status Dose Units Route Directions Qty Days St art Date Stop Date End Date Instructions Adherence Allopurinol 100 mg tablet Discont inued 100 MG PO Twice daily 2022 1:00am May 11, 2024 11:49 am Ropinirole 2 mg tablet Discont inued 2 MG PO Daily at bedtime 2022 1:00am May 11, 2024 11:53 am Diclofenac Sodium 75 mg tablet,phoebe yed release (DR/EC) Discont inued 75 MG PO Twice daily 2022 1:00am March 13, 2023 9:47a m Furosemide 20 mg tablet Discont inued 20 MG PO Every morning 2022 1:00am 2024 3:21p m On Hold: Continue to hold, follow-up with PCP to restart Honey (Mediandrésney (Honey)) 100 % paste Discont inued 1 APPLIC TOPICA L Twice daily 2022 1:00am March 11, 2023 5:44p m Ascorbic Acid (Vitamin C) (Vitamin C) 500 mg Tablet Discont inued 500 MG PO Daily March 11, 2023 12:00a m May 11, 2024 11:48 am Aspirin 81 mg Tablet Active 81 MG PO Daily March 11, 2023 12:00a m Unknown Cyanocobala min (Vitamin B-12) (Vitamin B-12) 50 mcg Tablet Discont inued 50 MCG PO Daily March 11, 2023 12:00a m March 13, 2023 9:52a m Ergocalcife rol (Vitamin D2) 200 mcg/mL (8,000 unit/mL) Drops Discont inued 200 MCG PO Daily March 11, 2023 12:00a m May 11, 2024 11:46 am Cephalexin 500 mg capsule Discont inued 500 MG PO Twice daily 10 5 March 13, 2023 12:00a m May 11, 2024 11:48 am Cyanocobala min (Vitamin B-12) (Vitamin B-12) 1,000 mcg Tablet Active 1000 MCG PO Daily March 13, 2023 12:00a m Unknown Atorvastati n 20 mg Tablet Active 20 MG PO Daily 2017 1:00am Unknown Lisinopril- Hydrochloro thiazide 20-12.5 mg Tablet Active 1 TAB PO Daily 2017 1:00am Unknown Benzonatate 200 mg Capsule Discont inued 200 MG PO Twice daily as needed for Cough 2017 1:00am u 2022 2:19p m Glimepiride 2 mg Tablet Active 2 MG PO Twice daily 2017 1:00am Unknown Doxycycline Monohydrate 100 mg Capsule Discont inued 100 MG PO Twice daily 2017 1:00am u 2022 2:20p m Metformin 1,000 mg Tablet Discont inued 1000 MG PO Twice daily 2017 1:00am Septe mb2023 1:23p m Gabapentin 300 mg Capsule Discont inued 900 MG PO Bedtime 2017 1:00am May 11, 2024 11:53 am Albuterol Sulfate 90 mcg/actuati on Hfa Aerosol Inhaler Discont inued 1 PUFF INHALA TION EVERY 4-6 HOURS as needed for Shortness Of Breath Or Wheezing 2017 1:00am March 11, 2023 5:40p m Cefdinir 300 mg Capsule Discont inued 300 MG PO Q12H 2017 1:00am 2022 2:20p m Fluticasone Propionate 50 mcg/actuati on Kempner,Suspe nsion Discont inued 1 SPRAY INTRAN MOO Daily 2017 1:00am 2022 2:20p m Atenolol 50 mg Tablet Active 50 MG PO Daily 2017 1:00am Unknown Omeprazole Magnesium (Prilosec Otc) 20 mg Tablet,Phoebe yed Release (Dr/Ec) Discont inued 20 MG PO Daily 2017 1:00am May 11, 2024 11:53 am Promethazin e-Codeine 6.25-10 mg/5 mL Syrup Discont inued 5 ML PO Q4H as needed for Cough 120 2017 1:00am 2022 2:21p m Gabapentin 300 mg capsule Discont inued 300 MG PO Twice daily May 11, 2024 11:50a m 2024 3:23p m takes 1 in the afternoon and 2 before bedtime Gabapentin 300 mg capsule Active 300 MG PO Three times daily 2024 3:21pm Unknown Cephalexin 500 mg capsule Discont inued 500 MG PO Q8H 7 2021 12:00a m u 2022 2:20p m Cholecalcif julianna (Vitamin D3) (Vitamin D3) 25 mcg (1,000 unit) capsule Active 25 MCG PO Daily 2023 12:00a m Unknown Dapaglifloz in Propanediol (Farxiga) 10 mg tablet Discont inued 10 MG PO Daily 2023 12:00a m Febru buster 2024 3:21p m On Hold: Hold until seen by PCP. discuss alternative therapy Cholecalcif julianna (Vitamin D3) 125 mcg (5,000 unit) capsule Discont inued 125 MCG PO Daily May 11, 2024 12:00a m mb2023 12:26 pm Ascorbate Calcium (Vitamin C) 500 mg tablet Active 500 MG PO Daily May 11, 2024 12:00a m Unknown Allopurinol 300 mg tablet Active 300 MG PO Daily May 11, 2024 12:00a m Unknown Sitagliptin Phosphate (Januvia) 50 mg tablet Active 50 MG PO Daily May 11, 2024 12:00a m Unknown Omeprazole 20 mg capsule,del ayed release(DR/ EC) Active 20 MG PO Daily May 11, 2024 12:00a m Unknown Magnesium Oxide 400 mg magnesium tablet Active 400 MG PO Twice daily May 11, 2024 12:00a m Unknown Ropinirole 2 mg tablet Active 2 MG PO Daily at bedtime May 11, 2024 12:00a m Unknown Resmetirom (Rezdiffra) 80 mg tablet Active 80 MG PO Daily May 11, 2024 12:00a m Unknown Immunizations Immunization Event Date Not Given Reason Dose Number Clinical Science Liaison Lot Number Vaccine Information Statement (VIS) Detail Administration Location COVID-19 mRNA, Comirnaty (Angelfish) January 14, 2021 COVID-19 mRNA, Comirnaty (Angelfish) February 05, 2021 COVID-19 mRNA, Comirnaty (Angelfish) August 13, 2021 Relevant Diagnostic Tests and/or Laboratory Data Laboratory Results Test Collection Date/Time Result Date/Time Result Interpretation Reference Range Result Comment Performing Site Correcte d White Blood Count June 26, 2025 9:41am June 26, 2025 10:26am 5.4 10*3/uL 3.8-11.6 [facility] [id number] [address] [place] [address] Red Blood Count June 26, 2025 9:41am June 26, 2025 10:26am 3.77 10*6/uL 3.60-5.00 [facility] [id number] [address] [facility] [address] Hemoglob in June 26, 2025 9:41am June 26, 2025 10:26am 11.1 g/dL Below low normal 11.8-15.4 [facility] [id number] [address] [facility] [address] Hematocr it June 26, 2025 9:41am June 26, 2025 10:26am 32.4 % Below low normal 34.0-46.4 [facility] [id number] [address] [facility] [address] Mean Corpuscu lar Volume June 26, 2025 9:41am June 26, 2025 10:26am 86.0 fL 80-100 [facility] [id number] [address] [facility] [address] Mean Corpuscu lar Hemoglob in June 26, 2025 9:41am June 26, 2025 10:26am 29.3 pg 24.7-34.3 [facility] [id number] [address] [facility] [address] Mean Corpuscu lar Hemoglob in Concent June 26, 2025 9:41am June 26, 2025 10:26am 34.1 g/dL 32.0-35.0 [facility] [id number] [address] [facility] [address] Red Cell Distribu tion Width June 26, 2025 9:41am June 26, 2025 10:26am 16.6 % Above high normal 11.9-15.3 [facility] [id number] [address] [facility] [address] Platelet Count June 26, 2025 9:41am June 26, 2025 10:26am 141 10*3/uL Below low normal 150-450 [facility] [id number] [address] [facility] [address] Mean Platelet Volume June 26, 2025 9:41am June 26, 2025 10:26am 7.1 fL 6.3-10.7 [facility] [id number] [address] [facility] [address] Urine Color June 26, 2025 10:13am June 26, 2025 10:29am Light-yel low Yellow [facility] [id number] [address] [facility] [address] Urine Appearan ce June 26, 2025 10:13am June 26, 2025 10:29am Clear Clear [facility] [id number] [address] [facility] [address] Urine Specific [place] June 26, 2025 10:13am June 26, 2025 10:29am 1.016 1.001-1.03 0 [facility] [id number] [address] [facility] [address] Urine pH June 26, 2025 10:13am June 26, 2025 10:29am 6.0 5.0-9.0 [facility] [id number] [address] [facility] [address] Urine Leukocyt e Esterase June 26, 2025 10:13am June 26, 2025 10:29am Negative Negative [facility] [id number] [address] [facility] [address] Urine Nitrite June 26, 2025 10:13am June 26, 2025 10:29am Negative Negative [facility] [id number] [address] [facility] [address] Urine Protein June 26, 2025 10:13am June 26, 2025 10:29am Negative mg/dL Negative [facility] [id number] [address] [facility] [address] Urine Glucose (UA) June 26, 2025 10:13am June 26, 2025 10:29am Normal mg/dL Normal [facility] [id number] [address] [facility] [address] Urine Ketones June 26, 2025 10:13am June 26, 2025 10:29am Negative Negative [facility] [id number] [address] [facility] [address] Urine Urobilin ogen June 26, 2025 10:13am June 26, 2025 10:29am Normal mg/dL Normal [facility] [id number] [address] [facility] [address] Urine Bilirubi n June 26, 2025 10:13am June 26, 2025 10:29am Negative Negative [facility] [id number] [address] [facility] [address] Urine Occult Blood June 26, 2025 10:13am June 26, 2025 10:29am Negative Negative [facility] [id number] [address] [facility] 35209 Urine RBC June 26, 2025 10:13am June 26, 2025 10:44am 1-2 [HPF] 0-4 [facility] [id number] [address] [facility] [address] Urine WBC June 26, 2025 10:13am June 26, 2025 10:44am 1-2 [HPF] 0-4 [facility] [id number] [address] [facility] 6[address] Urine Squamous Epitheli al Cells June 26, 2025 10:13am June 26, 2025 10:44am 5-9 [HPF] Above high normal 0-2 [facility] [id number] [address] [facility] 5[address] Urine Bacteria June 26, 2025 10:13am June 26, 2025 10:44am None seen [HPF] None Seen [facility] [id number] [address] [place] [address] Urine Hyaline Casts June 26, 2025 10:13am June 26, 2025 10:44am None [LPF] 0-8 [facility] [id number] [address] [facility] [address] Urine Mucus June 26, 2025 10:13am June 26, 2025 10:44am Rare [LPF] [facility] [id number] [address] [place] [address]76 Glucose Level June 26, 2025 9:42am June 26, 2025 10:50am 171 mg/dL Above high normal 70-100 ADA recommended reference rangeRandom Glucose Reference Range is dependent on time and content of last meal. Glucose of more than 200 mg/dL in a nonstressed , ambulatory subject supports the diagnosis of Diabetes Mellitus. [facility] [id number] [address] [facility] [address] Blood Urea Nitrogen June 26, 2025 9:42am June 26, 2025 10:50am 33 mg/dL Above high normal 7-25 [facility] [id number] [address] [facility] [address] Creatini ne June 26, 2025 9:42am June 26, 2025 10:50am 1.34 mg/dL Above high normal 0.60-1.20 [facility] [id number] [address] [facility] [address] Estimate d GFR (CKD-EPI ) June 26, 2025 9:42am June 26, 2025 10:50am 41.095 mL/Min [facility] [id number] [address] [facility] [address]205 Sodium Level June 26, 2025 9:42am June 26, 2025 10:50am 140 mmol/L 136-145 [facility] [id number] [address] [place] [id number] Potassiu m Level June 26, 2025 9:42am June 26, 2025 10:50am 4.6 mmol/L 3.5-5.1 [facility] [id number] [address] [place] [address]6170 Chloride Level June 26, 2025 9:42am June 26, 2025 10:50am 103 mmol/L 98-107 [facility] [id number] [address] [place] [address] Carbon Dioxide Level June 26, 2025 9:42am June 26, 2025 10:50am 32.4 mmol/L Above high normal 21.0-31.0 [facility] [id number] [address] [facility] [address] Anion Gap June 26, 2025 9:42am June 26, 2025 10:50am 9.2 mEq/L 6.0-15.0 [facility] [id number] [address] [place] [id number] Calcium Level June 26, 2025 9:42am June 26, 2025 10:50am 8.9 mg/dL 8.6-10.3 [facility] [id number] [address] [place] [id number] Phosphor us Level June 26, 2025 9:42am June 26, 2025 10:50am 4.0 mg/dL 2.5-4.5 [facility] [id number] [address] [facility] [address] Magnesiu m Level June 26, 2025 9:41am June 26, 2025 10:50am 1.4 mg/dL Below low normal 1.9-2.7 [facility] [id number] [address] [facility] [address] Total Protein June 26, 2025 9:42am June 26, 2025 10:50am 5.8 g/dL Below low normal 6.4-8.9 [facility] [id number] [address] [facility] [address] Albumin June 26, 2025 9:42am June 26, 2025 10:50am 3.8 g/dL 3.5-5.7 [facility] [id number] [address] [facility] 29184 Globulin June 26, 2025 9:42am June 26, 2025 10:50am 2.0 g/dL [facility] [id number] [address] [place], [place] [address] Albumin/ Globulin Ratio June 26, 2025 9:42am June 26, 2025 10:50am 1.9 [facility] [id number] [address] [place], [place] [address] Total Bilirubi n June 26, 2025 9:42am June 26, 2025 10:50am 0.7 mg/dL 0.3-1.0 [facility] [id number] [address] [place] [id number] Aspartat e Amino Transf (AST/SGO T) June 26, 2025 9:42am June 26, 2025 10:50am 12 U/L Below low normal 13-39 [facility] [id number] [address] [place], [place] [address] Alanine Aminotra nsferase (ALT/SGP T) June 26, 2025 9:42am June 26, 2025 10:50am 11 U/L 7-52 [facility] [id number] [address] [place] [address] Alkaline Phosphat ase June 26, 2025 9:42am June 26, 2025 10:50am 132 U/L Above high normal 34-104 [facility] [id number] [address] [facility] [address]42 Uric Acid June 26, 2025 9:41am June 26, 2025 10:50am 3.7 mg/dL 2.3-6.6 [facility] [id number] [address] [facility] [address] Choleste rol Level June 26, 2025 9:42am June 26, 2025 10:46am 102 mg/dL Below low normal 140-200 Chol less than 200 mg/dl low riskChol 201-239 mg/dl borderline riskChol 240 mg/dl and greater high risk [facility] [id number] [address] [facility] [address] HDL Choleste rol June 26, 2025 9:42am June 26, 2025 10:46am 37 mg/dL 23-92 HDL CHOL ATP-III CLASSIFICAT ION Cardiovascu lar RiskHDL > or equal to 60 mg/dL LOWHDL < 40 mg/dL HIGH [facility] [id number] [address] [facility] [address] Triglyce rides Level June 26, 2025 9:42am June 26, 2025 10:46am 112 mg/dL 0-149 TRIG ATP III CLASSIFICAT IONTRIG less than 150 mg/dL NormalTRIG 150-199 mg/dL Borderline highTRIG 200-500 mg/dL High TRIG greater than 500 mg/dL Very highStandar d traceable to the Center for Disease Conrtrol and Prevention (CDC) test method. [facility] [id number] [address] [facility] [address] LDL Choleste rol, Calculat ed June 26, 2025 9:42am June 26, 2025 10:46am 43 mg/dL 0-100 LDL ATP III CLASSIFICAT IONLDL less than 100 mg/dL OptimalLDL 100-129 mg/dL Near or above optimalLDL 130-159 mg/dL Borderline highLDL 160-189 mg/dL HighLDL greater than 189 mg/dL Very high [facility] [id number] [address] [facility] 13333 VLDL Choleste rol June 26, 2025 9:42am June 26, 2025 10:46am 22 mg/dL [facility] [id number] [address] [facility] [address] Choleste rol/HDL Ratio June 26, 2025 9:42am June 26, 2025 10:46am 2.8 <5.0 [facility] [id number] [address] [place], [place] [address] 25-Frederick xy Vitamin D Total June 26, 2025 9:41am June 26, 2025 11:18am 61.6 ng/mL 30-100 VITAMIN D STATUS 25(OH)VITAM IN D RANGE (ng/mL) Deficient <20 Insufficien t 20 to <30Sufficie nt 30 to 100Referenc e: Oli MF,Albert PRATT, Austen loera LACKEY, et al. Evaluation, treatment, and prevention of vitamin D deficiency; an Endocrine Society clinical practice guideline. JCEM. 2010; 96(7):1911- 30. [facility] [id number] [address] [place] [address]96 Parathyr oid Hormone (Intact) June 26, 2025 9:41am June 26, 2025 11:02am 48.7 pg/mL 12-88 [facility] [id number] [address] [place] [address]772 Pharmacy Creatini ne Clearanc e (Chem June 26, 2025 9:42am June 26, 2025 10:50am N/A [facility] [id number] [address] [place] [address] Hemoglob in A1c June 26, 2025 9:42am June 26, 2025 11:42am 7.1 % Above high normal 4.3-5.6 Increased risk for diabetes: 5.7 - 6.4diabetes : >6.4glycemi c control for adults with diabetes: <7.0 [facility] [id number] [address] [place] [address] Estimate d Average Glucose June 26, 2025 9:42am June 26, 2025 11:42am 157 mg/dL [facility] [id number] [address] [place], [place] [address] Urine Random Creatini ne June 26, 2025 10:13am June 26, 2025 10:56am 63.00 mg/dL No reference range established [facility] [id number] [address] [facility] 20662 Urine Random Total Protein June 26, 2025 10:13am June 26, 2025 10:56am 14 mg/dL Above high normal 0-9 [facility] [id number] [address] [facility] [address]407 Urine Protein/ Creatini ne Ratio June 26, 2025 10:13am June 26, 2025 10:56am 222 mg/g{Cre} Above high normal 0-200 [facility] [id number] [address] [facility] [address] Advance Directives Advance Directive Response Recorded Date/ Time Advance Directives No September 24, 2017 1:08pm Insurance Providers Guarantor Anh Joneskins Address [address] [facility] [address] Contact Info. Home Phone: Payer Policy Id Subscriber's Name Subscriber Id Effectiv e Date Expiration Date Medicaid [id number] Anh Tejeda [id number] Encounters Encounter Location(s) Arrival/Admit Date Discharge/Depart Date Provider(s) Non-patient / [facility]visit -[facility] June 08, 2025 12:08pm Bradley Rowland MD Departed Clinical -Lab [facility] June 26, 2025 9:19am June 26, 2025 9:20am Candelario Sosa DO Plan of Treatment Future Tests Future scheduled test information is unavailable Pending Tests Pending diagnostic test information is unavailable Future Visits Future appointment information is unavailable Referrals to Other Providers Referral information is unavailable Future Procedures Procedure Name Ordered Date Scheduled Date Discharge Order June 08, 2025 2:15pm May 2:15pm Future Medications Future medication information is unavailable Patient Instructions Instruction Admit Date Know your Meds June 08, 2025 12:0 8pm
--- OUTSIDE RECORDS SUMMARY | 2025-06-29 13:43 | XMS_ITS | Encounter Summary ---
Author Organization [facility] Address [address] [place] [address] Care Team Providers Care Automatic Glove Turner And Former Name Role Phone Candelario Sosa Primary Care Provider [phone] Trae Mccarty MD Unavailable [phone] Encounter Details Date Type Department Care Team (Late st Contact Info) Description 02/29/2024 Orders Only [facility] [address] [place] [id number] Avery Martinez DO [address] [place] [address] Carpal tunnel syndrome on right (Primary Dx) [...] syndrome documented in this encounter Care Teams Automatic Glove Turner And Former Relationship Specialty Start Date End Date Candelario Sosa [address] [place] [address] PCP - General Family Medicine 01/13/24 Trae Mccarty MD [address] [place] [address] PCP - Devoted 11/16/23 documented as of this encounter
--- OUTSIDE RECORDS SUMMARY | 2025-06-29 13:43 | XMS_ITS | Encounter Summary ---
Author Organization [facility] Address [address] [place] [address] Care Team Providers Care Small Package And Bundle Sorter Clerk Name Role Phone Nisa Shepherd CNP Primary Care Provider [phone] Source Comments In the event this information is protected by the Federal Confidentiality of Alcohol and Drug AbusePatient Records regulations: The Federal rules restrict any use of the information to criminally investigate or prosecute any alcohol or drug abuse patient.[facility] Encounter Details Date Type Department Care [...] is lower risk 7 05/01/2023 Data from: https://www.neighborhoodatlas.medicine.[facility].edu/. Last address used for calculation [address] 05/01/2023 Comments No Sex and Gender Information Value Date Recorded Sex Assigned at Not on file Legal Sex Female 10:39 AM EST Gender Identity Not on file Sexual Orientation Not on file documented as of this encounter Plan of Treatment Upcoming Encounters Date Type Department Care Team (Latest Contact Info) Description 08/04/2025 10:45 AM EDT Office Visit [facility] [address] [place] [address] [place] [address] 3 month follow up with Daksha and morgan 08/04/2025 11:00 AM EDT Visit (SP) Office Hematology/Oncology [address] [place] [address] Daksha Balderas, PA-C [address] [place] [address] 3 month follow up with Daksha and lab documented as of this encounter Visit Diagnoses Not on filedocumented in this encounter Care Teams Small Package And Bundle Sorter Clerk Relationship Specialty Start Date End Date Nisa Shepherd BARREL BRANDER [address] [place], [place] [address] [place] [address] PCP - General Family Medicine 09/22/22 documented as of this encounter
--- OUTSIDE RECORDS SUMMARY | 2025-06-29 13:43 | XMS_ITS | Clinical Summary ---
Author Organization [facility] Address [address] [place] [address] Care Team Providers Care Outside Sales Inspector Name Role Phone Candelario Sosa Primary Care Provider [phone] Trae Mccarty MD Unavailable [phone] Allergies Active Allergy Reactions Criticality Noted [...] insulin 02/02/2024 Stage 3b chronic kidney disease 01/29/2024 Iron deficiency anemia due to chronic blood loss 10/03/2022 GERD (gastroesophageal reflux disease) 0 History of malignant neoplasm of skin 09/05/2010 Arthropathy 09/05/2010 Asymptomatic varicose veins 09/05/2010 Depressive disorder 09/05/2010 Essential hypertension 09/05/2010 Encounters Date Type Department Care Team Description 06/07/2025 1:30 PM EDT Office Visit [facility] [address] [place] [address] Hearing loss, mixed, bilateral (Primary Dx) 05/17/2025 Telephone [facility] [address] [facility] [address] Jenny Watson MA from Last 3 Months Family History Medical [...] (2 of 2 - PCV) 08/16/2019 08/16/2018 Influenza Vaccine (#1) 2025 4, 11/25/2023, 08/27/2022, Additional history exists Colonoscopy Discontinued 06/12/2022 Colorectal Cancer Screening Discontinued CT Colonography Discontinued FIT-DNA Discontinued FIT Discontinued FOBT Discontinued Sigmoidoscopy Discontinued Insurance [employer] Care Teams Outside Sales Inspector Relationship Specialty Start Date End Date Candelario oSsa [address] [place] [address] PCP - General Family Medicine 01/13/24 Trae Mccarty MD [address] [facility] [place] [address] PCP - Devoted 11/16/23
--- OUTSIDE RECORDS SUMMARY | 2025-06-29 13:43 | XMS_ITS | Clinical Summary ---
Author Organization [facility] Address [address] [place] [address] Care Team Providers Care Drop Hammer Set Up Operator Name Role Phone Nisa Shepherd CNP Primary Care Provider [phone] Allergies Active Allergy Reactions Criticality Noted Date [...] (PROVENTIL HFA, VENTOLIN HFA) 90 mcg/actuation inhaler 10/12/2023 Active FARXIGA 10 mg tablet 07/06/2024 Active resmetirom (REZDIFFRA) 80 mg tablet [...] mouth as needed for cold/allergy symptoms. Active vit B complex no.12/niacin,B3 , (VITAMIN B COMPLEX NO.12-NIACIN ORAL) Vitamin B 12 Active Active Problems Problem Noted Date Diagnosed Date Stage 3b chronic kidney disease 01/29/2024 Iron deficiency anemia due to chronic blood loss 10/03/2022 Encounters Date Type Department Care Team Description 04/25/2025 11:00 AM EDT Visit (SP) Office Hematology/Oncology [address] [place] [address] [place] [address] Daksha Balderas PA-C Anemia, unspecified type (Primary Dx); Iron deficiency anemia, unspecified iron deficiency anemia type; Stage 3b chronic kidney disease (HCC); Anemia in stage 3a chronic kidney disease (HCC) 04/25/2025 Travel 04/11/2025 Results Follow-Up Hematology/Oncology [address] [place] [address] [place] [address] Daksha Balderas PA-C labs/follow up 04/07/2025 2:00 PM EDT Visit (SP) Office Hematology/Oncology [address] [place] [address] [place] [address] Daksha Balderas PA-C Iron deficiency anemia, unspecified [...] is lower risk 7 05/01/2023 Data from: https://www.neighborhoodatlas.medicine.[facility].edu/. Last address used for calculation [address] 05/01/2023 Comments No Sex and Gender Information Value Date Recorded Sex Assigned at Not on file Legal Sex Female 10:39 AM EST Gender Identity Not on file Sexual Orientation Not on file Last Filed Vital Signs Vital Sign Reading Time Taken Comments Blood Pressure 158/78 04/25/2025 10:47 AM EDT Pulse 84 04/25/2025 10:47 AM EDT Temperature 36.6 C (97.9 F) 04/25/2025 10:47 AM EDT Respiratory Rate 18 04/25/2025 10:4 7 AM EDT Oxygen Saturation 94% 04/25/2025 10: 47 AM EDT Inhaled Oxygen Concentration - - Weight 100.9 kg (222 lb 7.1 oz) 025 10:47 AM EDT Height 158 cm (5' 2.21 ) 04/25/2025 10: 47 AM EDT Body Mass Index 40.42 04/25/2025 10:47 AM EDT Plan of Treatment Upcoming Encounters Date Type Department Care Team (Latest Contact Info) Description 08/04/2025 10:45 AM EDT Office Visit [facility] [address] [place] [address] [place] [address] 3 month follow up with Michelle 08/04/2025 11:00 AM EDT Visit (SP) Office Hematology/Oncology [address] [place] [address] Daksha Balderas, PA-C [address] [place] [address] 3 month follow up with Daksha and morgan Health Maintenance Due Date Last Done Comments Annual PCP Team Chronic Dise ase Visit 1966 Anxiety Screening 1966 Depression Screening 1966 Hepatitis C Screening 1966 DTaP,Tdap,Td Vaccine (1 - Tdap) 1967 Shingrix Vaccine (1 of 2) 1998 Bone Density Screening 2013 Pneumococcal Vaccine: 50+ (2 of 2 - PCV) 08/16/2019 08/16/2018 Advance Directive Discussion 11/16/2024 Medicare Advantage Annual We llness Visit 11/16/2024 Influenza Vaccine (#1) 2025 , 11/25/2023, 08/27/2022, Additional history exists Hemoglobin/Hematocrit 04/18/2026 04/18/2025 , 04/07/2025, 01/06/2025, Additional history exists Serum Creatinine 04/18/2026 04/18/2025, , 01/06/2025, Additional history exists Diabetes Screening 04/18/2028 04/18/2025, 0 04/07/2025, 01/06/2025, Additional history exists RSV Vaccine Completed 08/24/2024 Procedures Procedure Name Priority Date/Time Associated Diagnosis Comments PROTEIN TOTAL BLD Routine 04/18/2025 11: 13 AM EDT Anemia, unspecified type PROTEIN ELECTROPHORESIS SERUM (P) Routine 04/18/2025 11:13 AM EDT Anemia, unspecified type KAPPA/SAMANIEGO,FREE,SER Routine 04/18/2025 1 1:13 AM EDT Anemia, unspecified type IMMUNOFIXATION SCREEN, SERUM Routine 04/18/2025 11:13 AM EDT Anemia, unspecified type IMMUNOGLOBULINS DIVINA Routine 04/18/2025 1 1:13 AM EDT Anemia, unspecified type ERYTHROPOIETIN/EPO Routine 04/18/2025 11 :13 AM EDT Anemia, unspecified type HAPTOGLOBIN BLD Routine 04/18/2025 11:13 AM EDT Anemia, unspecified type VITAMIN B12 BLOOD Routine 04/18/2025 11: 13 AM EDT Anemia, unspecified type PROTEIN ELECTROPHORESIS SERUM W/INTERP Routine 04/18/2025 11:13 AM EDT Anemia, unspecified type TSH BLD Routine 04/18/2025 11:13 AM EDT Anemia, unspecified type MONOCLONAL PROTEIN, SERUM (BLOOD) Routine 04/18/2025 11:13 AM EDT Anemia, unspecified [...] (HCC) from Last 3 Months Results * IMMUNOFIXATION SCREEN, SERUM (04/18/2025 11:13 AM EDT) Pathologist [facility] Result No M protein is identified. No M protein is identified. 04/20/2025 6:52 AM EDT [facility] Staff Review ([facility]) Reviewed by Mo Gomes MD, Ph.D ([id number]) 04/20/2025 6:52 AM EDT [facility] Blood BLOOD SPECIMEN / Unknown Venipuncture / Unknown 04/18/2025 11:13 AM EDT 04/18/2025 11:13 AM EDT Daksha Balderas PA-C LABORATORY Final Result [facility] [address] [id number], * PROTEIN ELECTROPHORESIS SERUM (P) (04/18/2025 11:13 AM EDT) Albumin for SPE 3.85 3.43 - 5.41 g/dL 04/20/2025 8:16 AM EDT [facility] Alpha 1 Globulin 0.37 0.18 - 0.43 g/dL 04/20/2025 8:16 AM EDT [facility] Alpha 2 Globulin 0.78 0.42 - 0.98 g/dL 04/20/2025 8:16 AM EDT [facility] Beta Globulin 0.67 0.61 - 1.17 g/dL 04/20/2025 8:16 AM EDT [facility] Gamma Globulin 0.54 0.53 - 1.51 g/dL 04/20/2025 8:16 AM EDT [facility] Interpretation (Prot Electro) No definitive M protein is identified on protein electrophores is. No definitive M protein is identified on protein electrophores is. 04/20/2025 8:16 AM EDT [facility] M-Protein Location 04/20/2025 8:16 AM EDT [facility] Comment:Not Applicable. M-Protein Concentration 0.00 <=0.00 g/dL 04/20/2025 8:16 AM EDT [facility] SPE Staff Review Reviewed by Mo Gomes MD, Ph.D ([id number]) 04/20/2025 8:16 AM EDT [facility] Blood BLOOD SPECIMEN / Unknown Venipuncture / Unknown 04/18/2025 11:13 AM EDT 04/18/2025 11:13 AM EDT Narrative [facility] - 04/20/2025 8:16 AM EDT Serum electrophoresis test was performed using the Regenerate V8 NEXUS capillary electrophoresis method. Results obtained with different assay methods or kits cannot be used interchangeably. Daksha Balderas PA-C LABORATORY Final Result Performing Organization Address [facility]/ZIP Co de Phone Number [facility] [address] [place] [address], [place] * (ABNORMAL) KAPPA/SAMANIEGO,FREE,SER (04/18/2025 11:13 AM EDT) [place] Free, Serum 28.2(H) 3.3 - 19.4 mg/L 04/19/2025 4:27 PM EDT [facility] Comment: Rarely, increased serum free light chains levels may not be detected or accurately quantified due to prozone phenomenon or in high viscosity samples using this immunoturbidimetric assay. Correlation with other laboratory results and clinical findings is recommended. The [place] Free Light Chain was performed using the Binding Site Optilite immunoturbidimetric method. Result obtained with different assay methods or kits cannot be used interchangeably. L[place] Free, Serum 24.4 5.7 - 26.3 mg/L 04/19/2025 4:27 PM EDT [facility] Comment: Rarely, increased serum free light chains levels may not be detected or accurately quantified due to prozone phenomenon or in high viscosity samples using this immunoturbidimetric assay. Correlation with other laboratory results and clinical findings is recommended. The [place] Free Light Chain was performed using the Binding Site Optilite immunoturbidimetric method. Result obtained with different assay methods or kits cannot be used interchangeably. K/L Ratio, Serum 1.16 0.26 - 1.65 04/19/2025 4:27 PM EDT [facility] Blood BLOOD SPECIMEN / Unknown Venipuncture / Unknown 04/18/2025 11:13 AM EDT 04/18/2025 11:13 AM EDT us Daksha Balderas PA-C LABORATORY Final Result Performing Organization Address City/[facility]/ZIP Co de Phone Number [facility] [address] [address], [place] * (ABNORMAL) LACTATE DEHYDROGENASE (04/18/2025 11:13 AM EDT) LD 236(H) 135 - 214 U/L 04/18/2025 11:54 AM EDT [facility] Blood BLOOD SPECIMEN / Unknown Venipuncture / Unknown 04/18/2025 11:13 AM EDT 04/18/2025 11:13 AM EDT us Daksha Balderas PA-C LABORATORY Final Result Performing Organization Address [facility] Co de Phone Number [facility] [address] [place] [address] * VITAMIN B12 (04/18/2025 11:13 AM EDT) Vitamin B12 854 232 - 1,245 pg/mL 04/18/2025 5:16 PM EDT [facility] Blood BLOOD SPECIMEN / Unknown Venipuncture / Unknown 04/18/2025 11:13 AM EDT 04/18/2025 11:13 AM EDT us Daksha Balderas PA-C LABORATORY Final Result Performing Organization Address [facility] Co de Phone Number [facility] [address] [address], [place] * THYROID STIMULATING HORMONE (04/18/2025 11:13 AM EDT) TSH 1.250 0.270 - 4.200 mIU/L 04/18/2025 9:41 PM EDT [facility] Blood BLOOD SPECIMEN / Unknown Venipuncture / Unknown 04/18/2025 11:13 AM EDT 04/18/2025 11:13 AM EDT us Daksha Balderas PA-C LABORATORY Final Result [facility] [address] [facility] [address] [address], [place] * (ABNORMAL) RETICULOCYTE COUNT (04/18/2025 11:13 AM EDT) Only the most recent of2 resultswithin the time period is included. Retic % 4.1(H) 0.4 - 2.0 % 04/18/2025 11:22 AM EDT [facility] Abs Retic 0.154(H) 0.018 - 0.100 M/uL 04/18/2025 11:22 AM EDT [facility] Blood BLOOD SPECIMEN / Unknown Venipuncture / Unknown 04/18/2025 11:13 AM EDT 04/18/2025 11:13 AM EDT us Daksha Balderas PA-C LABORATORY Final Result Performing Organization Address [facility] Co de Phone Number [facility] [address] [place] [address] * (ABNORMAL) PROTEIN, TOTAL (04/18/2025 11:13 AM EDT) [facility] Protein, Total 6.2(L) 6.3 - 8.0 g/dL 04/18/2025 4:53 PM EDT [facility] Blood BLOOD SPECIMEN / Unknown Venipuncture / Unknown 04/18/2025 11:13 AM EDT 04/18/2025 11:13 AM EDT us Daksha Balderas PA-C LABORATORY Final Result Performing Organization Address City/[facility]/ZIP Co de Phone Number [facility] [address] [facility] [address] [address], [place] * IRON AND TIBC (04/18/2025 11:13 AM EDT) Only the most recent of2 resultswithin the time period is included. Iron 73 41 - 186 ug/dL 04/18/2025 9:30 PM EDT [facility] TIBC 336 232 - 386 ug/dL 04/18/2025 9:30 PM EDT [facility] Transferrin Saturation 21.7 15.0 - 57.0 % 04/18/2025 9:30 PM EDT [facility] Blood BLOOD SPECIMEN / Unknown Venipuncture / Unknown 04/18/2025 11:13 AM EDT 04/18/2025 11:13 AM EDT Daksha Balderas PA-C LABORATORY Final Result Performing Organization Address City/[facility] Co de Phone Number [facility] [address] [id number], [place] * (ABNORMAL) IMMUNOGLOBULINS,IGG,IGA,IGM (04/18/2025 11:13 AM EDT) IgG 682(L) 700 - 1,600 mg/dL 04/18/2025 7:22 PM EDT [facility] IgA 48(L) 70 - 400 mg/dL 04/18/2025 7:22 PM EDT [facility] IgM 42 40 - 230 mg/dL 04/18/2025 7:22 PM EDT [facility] Blood BLOOD SPECIMEN / Unknown Venipuncture / Unknown 04/18/2025 11:13 AM EDT 04/18/2025 11:13 AM EDT us Daksha Balderas PA-C LABORATORY Final Result Performing Organization Address City/[facility]/ZIP Co de Phone Number [facility] [address] [facility] [address] [address], [place] * HAPTOGLOBIN (04/18/2025 11:13 AM EDT) Haptoglobin 155 31 - 238 mg/dL 04/18/2025 9:30 PM EDT [facility] Blood BLOOD SPECIMEN / Unknown Venipuncture / Unknown 04/18/2025 11:13 AM EDT 04/18/2025 11:13 AM EDT Daksha Martinez Sherrie SIMMONS LABORATORY Final Result Performing Organization Address City/[facility]/ZIP Co de Phone Number [facility] [address] [place] [address], [place] * FOLATE, SERUM (04/18/2025 11:13 AM EDT) Folate >20.0 >4.7 ng/mL 04/18/2025 5:16 PM EDT [facility] Comment: A result of > 20 ng/mL is not necessarily indicative of a pathologic or treatable condition: it reflects a limitation of the test methodology. Assay reference range: 4.8 to 24.2 ng/mL. Suitable for detection of folate deficiency. Reference: Folate III (Folate III) [package insert V 1.0 Portuguese]. [employer], [place], [place]: September 2015. Blood BLOOD SPECIMEN / Unknown Venipuncture / Unknown 04/18/2025 11:13 AM EDT 04/18/2025 11:13 AM EDT Daksha Martinez Sherrie SIMMONS LABORATORY Final Result Performing Organization Address [facility]/ZIP Co de Phone Number [facility] [address] [place] [address], [place] * (ABNORMAL) FERRITIN (04/18/2025 11:13 AM EDT) Only the most recent of2 resultswithin the time period is included. Ferritin 398.0(H) 14.7 - 205.1 ng/mL 04/18/2025 9:41 PM EDT [facility] Blood BLOOD SPECIMEN / Unknown Venipuncture / Unknown 04/18/2025 11:13 AM EDT 04/18/2025 11:13 AM EDT Daksha Martinez Sherrie HUDDLESTON-C LABORATORY Final Result Performing Organization Address City/[facility]/ZIP Co de Phone Number [facility] [address] [phone], [place] * (ABNORMAL) ERYTHROPOIETIN/EPO (04/18/2025 11:13 AM EDT) Pathologist [facility] Erythropoietin 26.7(H) 2.6 - 18.5 mIU/mL 04/19/2025 12:09 PM EDT [facility] Blood BLOOD SPECIMEN / Unknown Venipuncture / Unknown 04/18/2025 11:13 AM EDT 04/18/2025 11:13 AM EDT Narrative [facility] - 04/19/2025 12:09 PM EDT Test analyzed by the Aman DxI method. us Daksha Balderas PA-C LABORATORY Final Result [facility] [address] [id number], * (ABNORMAL) COMPREHENSIVE METABOLIC PANEL (04/18/2025 11:13 AM EDT) Only the most recent of2 resultswithin the time period is included. [facility] Protein, Total 6.4 6.3 - 8.0 g/dL 04/18/2025 11:54 AM EDT [facility] Albumin 4.2 3.9 - 4.9 g/dL 04/18/2025 11:54 AM EDT [facility] Calcium, Total 10.0 8.5 - 10.2 mg/dL 04/18/2025 11:54 AM EDT [facility] Bilirubin, Total 0.8 0.2 - 1.3 mg/dL 04/18/2025 11:54 AM EDT [facility] Alkaline Phosphatase 157(H) 34 - 123 U/L 04/18/2025 11:54 AM EDT [facility] AST 18 13 - 35 U/L 04/18/2025 11:54 AM EDT [facility] ALT 17 7 - 38 U/L 04/18/2025 11:54 AM EDT [facility] Glucose 154(H) 74 - 99 mg/dL 04/18/2025 11:54 AM [facility] Comment: The [place] Diabetes Association (ADA) provides guidance for cutoff [...] Standards of Medical Care in Diabetes 2016, [place] [employer] Association. Diabetes Care. 2016.39(Suppl 1). BUN 33(H) 7 - 21 mg/dL 04/18/2025 11:54 AM [facility] Creatinine 1.16(H) 0.58 - 0.96 mg/dL 04/18/2025 11:54 AM [facility] Sodium 140 136 - 144 mmol/L 04/18/2025 11:54 AM [facility] Potassium 4.9 3.7 - 5.1 mmol/L 04/18/2025 11:54 AM [facility] Chloride 102 98 - 107 mmol/L 04/18/2025 11:54 AM [facility] CO2 28 22 - 30 mmol/L 04/18/2025 11:54 AM [facility] Anion Gap 10 8 - 15 mmol/L 04/18/2025 11:54 AM [facility] Estimated Glomerular Filtration Rate 49(L) >=60 mL/min/1. 73m 04/18/2025 11:54 AM [facility] Comment:Estimated Glomerular Filtration Rate (eGFR) [...] EDT Daksha Balderas PA-C LABORATORY Final Result [facility] [address] [place] [address] * (ABNORMAL) COMPLETE BLOOD COUNT AND DIFFERENTIAL (04/18/2025 11:13 AM EDT) Only the most recent of2 resultswithin the time period is included. WBC 5.65 3.70 - 11.00 k/uL 04/18/2025 11:22 AM EDT [facility] RBC 3.73(L) 3.90 - 5.20 m/uL 04/18/2025 11:22 AM EDT [facility] Hemoglobin 11.0(L) 11.5 - 15.5 g/dL 04/18/2025 11:22 AM EDT [facility] Hematocrit 32.9(L) 36.0 - 46.0 % 04/18/2025 11:22 AM EDT [facility] MCV 88.2 80.0 - 100.0 fL 04/18/2025 11:22 AM EDT [facility] MCH 29.5 26.0 - 34.0 pg 04/18/2025 11:22 AM EDT [facility] MCHC 33.4 30.5 - 36.0 g/dL 04/18/2025 11:22 AM EDT [facility] RDW-CV 16.4(H) 11.5 - 15.0 % 04/18/2025 11:22 AM EDT [facility] Platelet Count 136(L) 150 - 400 k/uL 04/18/2025 11:22 AM EDT [facility] MPV 9.0 9.0 - 12.7 fL 04/18/2025 11:22 AM EDT [facility] Neutrophils % 66.6 % 04/18/2025 11:22 AM EDT [facility] Abs Neut 3.77 1.45 - 7.50 k/uL 04/18/2025 11:22 AM EDT [facility] Lymphocytes % 24.8 % 04/18/2025 11:22 AM EDT [facility] Abs Lymph 1.40 1.00 - 4.00 k/uL 04/18/2025 11:22 AM EDT [facility] Monocytes % 6.4 % 04/18/2025 11:22 AM EDT [facility] Abs [place] 0.36 <0.87 k/uL 04/18/2025 11:22 AM EDT [facility] Eosinophils % 1.6 % 04/18/2025 11:22 AM EDT [facility] Abs Eosin 0.09 <0.46 k/uL 04/18/2025 11:22 AM EDT [facility] Basophils % 0.2 % 04/18/2025 11:22 AM EDT [facility] Abs Baso <0.03 <0.11 k/uL 04/18/2025 11:[facility] Immature Granulocytes % 0.4 % 04/18/2025 11:22 AM EDT [facility] Abs Immature Gran <0.03 <0.10 k/uL 04/18/2025 11:22 AM EDT [facility] NRBC 0.0 /100 WBC 04/18/2025 11:22 AM EDT [facility] Absolute nRBC <0.01 <0.01 k/uL 04/18/2025 11:22 [facility] Diff Type Auto 04/18/2025 11:22 AM [facility] Blood BLOOD SPECIMEN / Unknown Venipuncture / Unknown 04/18/2025 11:13 AM EDT 04/18/2025 11:13 AM EDT Daksha Balderas PA-C LABORATORY Final Result [facility] [address] [facility] [place] [address] from Last 3 Months Insurance [facility] HMO Care Teams Drop Hammer Set Up Operator Relationship Specialty Start Date End Date Nisa Shepherd MOLECULAR BIOLOGIST [address] [place] [address] [place] [address] PCP - General Family Medicine 09/22/22
--- OUTSIDE RECORDS SUMMARY | 2025-06-29 13:43 | XMS_ITS | Encounter Summary ---
Author Organization [facility] Address [address] [place] [place] [address] Care Team Providers Care Drier Operator Name Role Phone Candelario Sosa Primary Care Provider [phone] Trae Mccarty MD Unavailable [phone] Encounter Details Date Type Department Care Team (Late st Contact Info) Description 02/09/2024 Abstract [facility] [address] [facility] [address] [place] [id number] Shi Ugarte MA Social History Tobacco Use Types Packs/Day Years [...] on filedocumented in this encounter Care Teams Drier Operator Relationship Specialty Start Date End Date Candelario Sosa [address] [place] [address] PCP - General Family Medicine 01/13/24 Trae Mccarty MD [address] [place] [address] PCP - Devoted 11/16/23 documented as of this encounter
--- OUTSIDE RECORDS SUMMARY | 2025-06-29 13:43 | XMS_ITS | Patient Health Record ---
Author Organization [facility] [place] Address [address] [place] [address] Care Team Providers Care Hourly Team Members Name Role Phone Sheila DOS SANTOSCandelario Primary Care Provider Unavail Regi Shane Unavailable [phone] Allergies Allergen (clinical drug ingredient) Drug/Non Drug [...] Encounters Encounter Location Date Provider Diagnosis [facility] (PODIATRY) [address] [place] [address] [place] [address] 12/29/2024 Regi Jacinto Diabetes E11.9 Assessments Encounter Date Diagnosis (ICD Code) Assessment Notes Treatment Notes Treatment Clinical Notes Section Notes 12/29/2024 Diabetes (ICD-10 - E11.9) Plan Of Treatment No Information Insurance Providers Payer Name Payer Address Payer Phone Subscriber Number Group Number Insured Name Patient Relationship to Insured Coverage Start Date Coverage End Date [facility] [employer] MEDICARE [address] [place] [address] [id number] Nikhil Anh Self - patient is the insured Medical (General) History Medical History History ICD Code anemia arthritis diabetes gout high blood pressure high cholesterol liver disease kidney disease varicose veins Surgical History Surgery Date(Month/Year) cholecystectomy hysterectomy knee eye carpal tunnel skin cancer removed
--- OUTSIDE RECORDS SUMMARY | 2025-06-29 14:02 | XMS_ITS | CCD ---
Author Organization [facility] CliniSyca Care Team Providers Care Global Program Director Name Role Phone Paxton, Vinay Primary Care Provider Bunting, Vinay Attending Provider BUNVINAY MCFADDEN R Primary Care Physician Bunting, DO Vinay Primary Care Provider Bunting, DO Vinay Attending Provider [phone] Bunting, DO Vinay Referring Provider Self, Referral Attending Provider Unavailable Bunting, DO Vinay Primary Care Provider [phone] Bunting, DO Vinay Attending Provider TROY Yusuf Emergency Provider [phone] TROY Yusuf Attending Provider Ruth [facility] Primary Care Provider Ruth [facility] Primary Care Provider Bunting, DO Vinay Primary Care Provider TROY Yusuf Emergency Provider TROY Yusuf Attending Provider [phone] Bunting, DO Vinay Attending Provider STARR Delcid Attending Provider Anh Delcid Unavailable Bunting, DO Vinay Primary Care Provider MD Rafael Edouard Attending Provider Bunting, DO Vinay Primary Care Provider MD Rafael Edouard Attending Provider Bunting, DO Vinay Attending Provider MD Anthony Rose Emergency Provider MD Kimberly Arteaga Admit Provider MD Kimberly Arteaga Attending Provider DO Krissy Easton Other Provider Conner [facility]- Queta Attending Provider [phone] BUNTING, DR MCLEAN Admitting Unavailable BUNTING, DR [...] MISC, DR BERGER Consulting Unavailable Bunting, DO Vinay Primary Care Provider Bunting, DO Vinay Attending Provider Bunting, DO Vinay Primary Care Provider [phone] Bunting, DO Vinay Attending Provider [phone] STARR Delcid Attending Provider Bunting, DO Vinay Primary Care Provider [phone] Bunting, DO Vinay Attending [facility] Bunting, DO Vinay Primary Care Provider [phone] MD Marilyn Stewart Attending Provider Bunting, DO Vinay R Other Provider [phone] Tamra, DO Bakari M Emergency Provider [phone] MD Comfort Monteiro Admit Provider MD Comfort Monteiro Attending Provider DO Ottoniel Bland M Other Provider Bunting, Vinay R Primary Care Provider [phone] Trae Mccarty MD Unavailable Bunting, DO Vinay Primary Care Provider DO Bakari Barboza M Emergency Provider [phone] MD Comfort Monteiro Admit Provider MD Comfort Monteiro Attending Provider KapDO Ottoniel linton M Other Provider Bunting, DO Vinay Attending Provider [phone] Ruth FERMIN, Nisa A. Primary Care Provider Bunting DO, Vinay Primary Care Provider Bunting DO, Vinay Attending Provider [phone] Conner CLEMENTS-C, Queta Benavides Attending Provider Bunting DO, Vinay Primary Care Provider Bunting DO, Vinay Attending Provider Marilyn Stewart MD Referring Provider Bunting DO, Vinay Referring Provider Self, Referral Attending Provider Unavailable Bunting DO, Vinay Primary Care Provider Bunting DO, Vinay Attending Provider [phone] Marilyn Stewart MD Referring Provider Bunting DO, Vinay Referring Provider Self, Referral Attending Provider Unavailable Franc DONG, Tessy Attending Provider Verónica Ugarte Attending Unavailable Verónica Ugarte Admitting Unavailable Mouchli, Mohamad A. Attending Unavailable Mouchli, Mohamad A. Admitting Unavailable Mouchli, Mohamad A. Attending Unavailable Mouchli, Mohamad A. Attending Unavailable CYRUS, DAKSHA M Referring Unavailable RUTH, NISA A. Primary Care Unavailable CYRUS, DAKSHA M Attending Unavailable CYRUS, DAKSHA M Referring Unavailable RUTH, NISA A. Primary Care Unavailable CYRUS, DAKSHA M Referring Unavailable RUTH, NISA A. Primary Care Unavailable CYRUS, DAKSHA M Attending Unavailable CYRUS, DAKSHA M Referring Unavailable RUTH, NISA A. Primary Care Unavailable RUTH, NISA A. Primary Care Unavailable CYRUS, DAKSHA M Attending Unavailable CYRUS, DAKSHA M Referring Unavailable RUTH, NISA A. Primary Care Unavailable CYRUS, DAKSHA M Referring Unavailable RUTH, NISA A. Primary Care Unavailable CYRUS, DAKSHA M Attending Unavailable CYRUS, DAKSHA M Referring Unavailable RUTH, NISA A. Primary Care Unavailable CYRUS, DAKSHA M Referring Unavailable RUTH, NISA A. Primary Care Unavailable CYRUS, DAKSHA M Attending Unavailable CYRUS, DAKSHA M Referring Unavailable RUTH, INSA A. Primary Care Unavailable Giyolandaitis , Andrius Vytpricilla Attending Unavailable Giedraitis , Andrius Vytautmaurilio Attending Unavailable Giedraitis , Andrius Vytpricilla Attending Unavailable Bunting Vinay DOS SANTOS Primary Care Provider [phone] Verónica Ugarte MD Attending Provider Verónica Ugarte MD Referring Provider [phone] TAMMY HERMAN Attending Unavailable TAMMY HERMAN Attending Unavailable QUETA PRIETO Attending Unavailable Mouchli, Mohamad A. Attending Unavailable Kashif DONG, Bradley Attending Provider Bunting DOVinay Attending Provider Marilyn Stewart MD Other Provider Bunting, Vinay Admitting Unavailable Bunting, Vinay Attending Unavailable Marilyn Stewart Consulting Unavailable Bunting, Vinay Primary Care Unavailable Bunting, Vinay Attending Unavailable Bunting, Vinay Primary Care Unavailable Bunting, Vinay Admitting Unavailable Windnagel, Queta C Attending Unavailable Windnagel, Queta C Admitting Unavailable Bunting, Vinay Primary Care Unavailable Bunting, Vinay Primary Care Unavailable Ottoniel Bland Consulting Unavailable Daromar, Obalissa M Attending Unavailable Daromar, Comfort M Admitting Unavailable Bunting, Vinay Attending Unavailable Bunting, Vinay Primary Care Unavailable Bunting, Vinay Admitting Unavailable Bunting, Vinay Attending Unavailable Terry Marilyn Referring Unavailable Bunting, Vinay Primary Care Unavailable Bunting, Vinay Admitting Unavailable Bunting, Vinay Referring Unavailable Self, Referral Attending Unavailable Self, Referral Admitting Unavailable Bunting, Vinay Primary Care Unavailable Giedraitis, Andrius Attending Unavailable Giedraitis, Andrius Admitting Unavailable Bunting, Vinay Primary Care Unavailable Bunting, Vinay Primary Care Unavailable ModestattAnselmo kramer Attending Unavailable Anselmo Stein Admitting Unavailable MoVerónica torres A Referring Unavailable Unavailable Unavailable Unavailable Allergies Allergy Classification Reported Allergen(s) Allergy Type Date of Onset Reaction(s) Facility Acetaminophen / Codeine (1 source) Acetaminophen / Codeine Drug Allergy 2 Other: See Comments [facility] Opioid Agonists (1 source) Codeine Drug Allergy 2 Other: See Comments [facility] (20 sources) Acetaminophen / Codeine; Translations: [acetaminophen-co deine] Drug Allergy 2 Upset stomach (finding), Other: See Comments [facility] Comment on above: pt states she is unw illing to try even plain tylenol after this experience even though she states she took tylenol prior to this and had no problems (20 sources) Codeine; Translations: [codeine] Drug Allergy 7 Other: See Comments, Other [facility] (4 sources) Acetaminophen / Codeine; Translations: [Tylenol with Codeine #3] Drug Allergy Unknown [facility] Repository (1 source) traMADol Drug Allergy [facility] [place] Repository (20 sources) Acetaminophen; Translations: [acetaminophen] Drug Allergy 3 Not allergic to tylenol [facility] (14 sources) Acetaminophen / Codeine; Translations: [ACETAMINOPHEN-CO DEINE] Drug Allergy 2 Other [facility] Medications Current Medications Medication Drug Class(es) Dates Sig (Normalized) Sig (Original) [id number] 200 actuat albuterol 0.09 mg/actuat metered dose inhaler (20 sources) beta2-Adrenergic Agonist Start: 10-12-2023 albuterol HFA (PROVENTIL HFA, VENTOLIN HFA) 90 mcg/actuation inhaler 10/12/2023 Active Start: 10-12-2023 take 2 puff(s) by mo uth every four hours as needed for cough albuterol HFA (PROVENTIL HFA, VENTOLIN HFA) 90 mcg/actuation inhaler INHALE 2 PUFFS BY MOUTH EVERY 4 HOURS NEEDED FOR COUGH 10/12/2023 Active Start: 12-26-2017 take 1 puff(s) by in halation every four to six hours Albuterol Sulfate Active 1 PUFF INHALATION EVERY 4-6 HOURS December 26, 2017 2:57pm Start: 12-26-2017 take 1 puff(s) by in halation every four to six hours Albuterol Sulfate Active 1 PUFF INHALATION EVERY 4-6 HOURS December 26, 2017 12:00am Start: 12-26-2017 End: 03-11-2023 take 1 puff(s) by inhalation every four to six hours as needed for wheezing Albuterol Sulfate 90 mcg/actuation Hfa Aerosol Inhaler Discontinued 1 PUFF INHALATION EVERY 4-6 HOURS as needed for Shortness Of Breath Or Wheezing December 26, 2017 1:00am March 11, 2023 5:40pm Start: 12-26-2017 End: 03-11-2023 take 1 puff(s) [...] on above: INHALE 2 PUFFS BY MO UT EVERY 4 HOURS NEEDED FOR COUGH allopurinol 300 mg oral tablet (20 sources) Xanthine Oxidase Inhibitor Start: 05-11-2024 take 1 tablet by mouth once daily Start: 01-21-2022 End: 05-11-2024 take 1 tablet by mouth twice daily Allopurinol 100 mg tablet Discontinued 100 MG PO Twice daily December 29, 2022 1:00am May 11, 2024 11:49am End: 07-15-2024 take 1 tablet by mouth once daily allopurinol (ZYLOPRIM) 100 mg tablet Take 100 mg by mouth once daily. 07/15/2024 Discontinued Comment on above: Take 100 mg by mouth once daily. amoxicillin 875 mg / clavulanate 125 mg oral tablet (6 sources) Penicillin-class Antibacterial Start: 01-02-2025 amoxicillin-clavulana te potassium (AUGMENTIN) 875-125 mg per tablet 01/02/2025 Active Start: 03-06-2018 take 1 tablet by oleg th every twelve hours Amoxicillin-Pot Clavulanate 875-125 MG 1 tablet Orally every 12 hrs for 10 day(s) Feb, Not-Taking ASCORBIC ACID, VITAMIN C, ORAL (20 sources) take 500 mg by mouth once daily ASCORBIC ACID, VITAMIN C, ORAL Take 500 mg by mouth once daily. Active take 500 mg by mouth once daily ASCORBIC ACID, VITAMIN C, ORAL Take 500 mg by mouth once daily. 0 Active Comment on above: Take 500 mg by mouth once daily. aspirin 81 mg oral tablet (20 sources) Platelet Aggregation Inhibitor, Nonsteroidal Anti-inflammatory Drug Start: 01-21-2022 take 1 tablet by mouth once daily Start: 01-21-2022 take 1 tablet by oleg th once daily aspirin 81 mg Oral EC Tab 81 mg = 1 tab(s), Oral, Daily, # 30 tab(s), Refills(s) 0, Pharmacy: [facility], 165, cm, 01/19/22 22:12:00 EST, Height/Length Dosing, 90, kg, 01/19/22 22:12:00 EST, Weight Dosing Start Date: 01/21/22 Status: Ordered Quantity: 30.0 Unit: tab(s) Repeat number: 1 Comment on above: Take 81 mg by mouth once daily. atenolol 50 mg oral tablet (20 sources) beta-Adrenergic Mervat Start: 12-26-2017 take 1 tablet by mouth once daily Atenolol Active Comment on above: Take 50 mg by mouth once daily. atorvastatin 20 mg oral tablet (20 sources) HMG-CoA Reductase Inhibitor Start: 12-26-2017 take 1 tablet by mouth once daily Atorvastatin Pedrito cium Active Comment on above: Take 20 mg by mouth once daily. baclofen 10 mg oral tablet (7 sources) gamma-Aminobutyric Acid-ergic Agonist Start: 03-30-2025 take 5 mg by mouth once daily baclofen 10 mg tablet Take 5 mg by mouth once daily. 03/30/2025 Active Start: 03-30-2025 baclofen 10 mg Tab Refills(s) 0 Start Date: 03/30/25 Status: Ordered Repeat number: 1 Biotin (2 sources) Biotin Active calcium ascorbate 500 mg oral tablet (13 sources) Start: 05-11-2024 take 1 tablet by mouth once daily cholecalciferol 0.025 mg oral capsule (20 sources) Vitamin D Start: 07-21-2024 take 1 capsule by mouth once daily Start: 05-11-2024 End: 07-21-2024 take 1 capsule by mouth once daily Cholecalciferol (Vitamin D3) 125 mcg (5,000 unit) capsule Discontinued 125 MCG PO Daily May 11, 2024 12:00am July 21, 2024 12:26pm Start: 01-20-2022 take 1 tablet by oleg th once daily cholecalciferol 1000 intl units oral tablet 25 mcg = 1 tab(s), Oral, Daily, Prophylaxis Start Date: 01/20/22 Status: Ordered Start: 01-20-2022 take 1 tablet by oleg th once daily cholecalciferol 1000 intl units oral tablet 25 mcg = 1 tab(s), Oral, Daily, Prophylaxis Start Date: 01/20/22 Status: Ordered Repeat number: 1 Start: 01-20-2022 take 1 tablet by oleg th once daily cholecalciferol 1000 intl units oral tablet 25 mcg = 1 tab(s), Oral, Daily Start Date: 01/20/22 Status: Ordered take 1 tablet by oleg th in the morning cholecalciferol (Vitamin D-3) 25 MCG (1000 UT) tablet Take 1,000 Units by mouth in the morning. Active Comment on above: Take 1,000 Units by mouth once daily. diphenhydrAMINE hydrochloride 12.5 mg chewable tablet (12 sources) Histamine-1 Receptor Antagonist Start: diphenhydrAMINE HCl (CHILDREN'S BENADRYL ALLERGY) 12.5 mg chewable tablet 25 mg. 09/29/2024 Active Fluzone High-Dose Quadrivalent syringe (13 sources) Start: Fluzone High-Dose Quadrivalent syringe Inject 0.7 mL into the shoulder, thigh, or buttocks 1 (one) time 11/25/2023 Active glimepiride 2 mg oral tablet (20 sources) Sulfonylurea Start: 018 take 1 tablet by mouth twice daily Start: 12-26-2017 take 2 mg by mouth o nce daily in the morning Glimepiride Active 2 MG PO Every morning December 26, 2017 12:00am Glimepiride Acti ve Comment on above: Take 2 mg by mouth d aily with breakfast. hydroCHLOROthiazide 12.5 mg / lisinopril 20 mg oral tablet (20 sources) Thiazide Diuretic, Angiotensin Converting Enzyme Inhibitor Start: 12-26-2017 take 1 tablet by mouth once daily take 10-12.5 mg by mouth once li sinopril-hydroCHLOROthiazide (PRINZIDE,ZESTORETIC) 10-12.5 mg per tablet Take 1 tablet by mouth once daily. Active Lisinopril-hydro CHLOROthiazide Active Comment on above: Take 1 tablet by oleg th once daily. Claritin (3 sources) Start: 03-30-2025 Claritin Daily , Takes due too itching from Rezdiffra, Refills(s) 0 Start Date: 03/30/25 Status: Ordered Repeat number: 1 loratadine (CLAR ITIN) 5 mg/5 mL syrup Take 5 mg by mouth as needed for cold/allergy symptoms. Active Magnesium (3 sources) Start: 03-28-2024 Magnesium Magn esium Start Date: 03/28/24 Status: Ordered Repeat number: 1 Start: 03-28-2024 Magnesium Magn esium Start Date: 03/28/24 Status: Ordered magnesium oxide 400 mg oral tablet (20 sources) Start: 02-03-2023 take 1 tablet by oleg th twice daily Start: 02-03-2023 take 1 tablet by oleg th once daily magnesium oxide 400 mg magnesium tab Take 1 tablet by mouth once daily. 02/03/2023 Active Start: 02-03-2023 take 1 tablet by oleg th once daily MAGNESIUM OXIDE ORAL Take 1 tablet by mouth once daily. 0 02/03/2023 Active Comment on above: Take 1 tablet by oleg th twice daily. Take 1 tablet by oleg th once daily. omeprazole 20 mg delayed release oral capsule (20 sources) Proton Pump Inhibitor Start: 09-19-2022 take 1 capsule by mouth once daily Start: 12-26-2017 End: 05-11-2024 take 1 tablet by mouth once daily Omeprazole Magnesium (Prilosec Otc) 20 mg Tablet,Delayed Release (Dr/Ec) Discontinued 20 MG PO Daily December 26, 2017 1:00am May 11, 2024 11:53am PriLOSEC Active Comment on above: Take 20 mg by mouth once daily. pioglitazone 15 mg oral tablet (9 sources) Peroxisome Proliferator Receptor alpha Agonist, Peroxisome Proliferator Receptor gamma Agonist, Thiazolidinedione Start: 01-02-20 pioglitazone (ACTOS) 15 mg tablet 01/02/2025 Active (2 sources) Active Resmetirom (13 sources) Start: 05-11-20 take 1 tablet by mouth once daily Start: 05-11-2024 take 1 tablet by oleg th once daily Resmetirom (Rezdiffra) 80 mg tablet Active 80 MG PO Daily May 10, 2024 11:00pm Start: 05-11-2024 take 1 tablet by oleg th once daily Resmetirom (Rezdiffra) 80 mg tablet Active 80 MG PO Daily May 11, 2024 12:00am resmetirom (REZDIFFRA) 80 mg tablet (9 sources) Start: 05-11-2024 resmetirom (RE ZDIFFRA) 80 mg tablet once daily. 05/11/2024 Active resmetirom 80 MG Oral Tablet [Rezdiffra] (2 sources) Start: 09-29-2024 Rezdiffra 80 m g oral tablet Refills(s) 0 Start Date: 09/29/24 Status: Ordered Repeat number: 1 Start: 09-29-2024 Paulino 80 m g oral tablet Refills(s) 0 Start Date: 09/29/24 Status: Ordered rOPINIRole 2 mg oral tablet (20 sources) Nonergot Dopamine Agonist Start: 12-29-2022 End: 03-29-2025 take 1 tablet by mouth once daily at bedtime Start: 01-21-2022 take 2 tablets by mo ut at bedtime ropinirole 0.5 mg Tab 1 mg = 2 tab(s), Oral, Bedtime, Refills(s) 0, Other (see comment) Start Date: 01/21/22 Status: Ordered Repeat number: 1 take 1 tablet by oleg th twice daily rOPINIRole (REQUIP) 0.5 mg tablet Take 0.5 mg by mouth twice daily. Active take 1 tablet by oleg th once daily at bedtime rOPINIRole (REQUIP) 0.5 mg tablet Take 0.5 mg by mouth daily at bedtime. 0 Active Comment on above: Take 0.5 mg by mouth daily at bedtime. Take 0.5 mg by mouth twice daily. SITagliptin 50 mg oral tablet (20 sources) Dipeptidyl Peptidase 4 Inhibitor Start: 09-15-2023 take 1 tablet by mouth once daily Comment on above: Take 1 tablet by oleg th every afternoon. vit B complex no.12/niacin,B3, (VITAMIN B COMPLEX NO.12-NIACIN ORAL) (1 source) vit B complex no.12/niacin,B3, (VITAMIN B COMPLEX NO.12-NIACIN ORAL) Vitamin B 12 Active vitamin B12 (20 sources) Vitamin B12 Start: 04-15-2023 Vitamin B12 Refills(s) 0 Start Date: 04/15/23 Status: Ordered Repeat number: 1 Start: 04-15-2023 Vitamin B12 Re fills(s) 0 Start Date: 04/15/23 Status: Ordered Start: 03-13-2023 take 1 tablet by oleg th once daily Start: 03-11-2023 End: 03-13-2023 take 1 tablet by mouth once daily Cyanocobalamin (Vitamin B-12) (Vitamin B-12) 50 mcg Tablet Discontinued 50 MCG PO Daily March 11, 2023 12:00am March 13, 2023 9:52am Vitamin D3 (2 sources) Vitamin D3 Activ e Completed/Discontinued Medications Medication Drug Class(es) Dates Sig (Normalized) Sig (Original) Albuterol Sulfate 90 mcg/actuation Hfa Aerosol Inhaler (5 sources) Start: 12-26-2017 End: 03-11-2023 take 1 puff(s) by inhalation every four to six hours as needed for wheezing Albuterol Sulfate 90 mcg/actuation Hfa Aerosol Inhaler Discontinued 1 PUFF INHALATION EVERY 4-6 HOURS as needed for Shortness Of Breath Or Wheezing December 26, 2017 1:00am March 11, 2023 5:40pm Start: 12-26-2017 End: 03-11-2023 take 1 puff(s) by inhalation every four to six hours as needed for wheezing Albuterol Sulfate 90 mcg/actuation Hfa Aerosol Inhaler Discontinued 1 PUFF INHALATION EVERY 4-6 HOURS as needed for Shortness Of Breath Or Wheezing December 26, 2017 12:00am March 11, 2023 4:40pm ascorbic acid 500 mg oral tablet (20 sources) Vitamin C Start: 01-20-2022 End: 05-11-2024 take 1 tablet by mouth once daily Ascorbic Acid (Vitamin C) (Vitamin C) 500 mg Tablet Discontinued 500 MG PO Daily March 11, 2023 12:00am May 11, 2024 11:48am Vitamin C Active benzonatate 200 mg oral capsule (20 sources) Non-narcotic Antitussive Start: 12-26-2017 End: 12-29-2022 take 1 capsule by mouth twice daily as needed for cough Benzonatate 200 mg Capsule Discontinued 200 MG PO Twice daily as needed for Cough December 26, 2017 1:00am December 29, 2022 2:19pm calcium carbonate 250 mg / magnesium carbonate 300 mg oral tablet (20 sources) Start: 02-04-2023 End: 07-15-2024 Calcium Carb-Magnesium Carb 250-300 mg tab Take by mouth. 02/04/2023 07/15/2024 Discontinued Start: 02-04-2023 MagneBind 300 oral tablet 1 tab(s), Oral, Daily, 150 tab(s), Refill(s) 0, [employer] #72, 160, cm, 12/24/22 10:14:00 EST, Height/Length Dosing, 97.2, kg, 12/24/22 10:14:00 EST, Weight Dosing Start Date: 02/04/23 Status: Ordered Quantity: 150.0 Unit: tab(s) Repeat number: 1 Comment on above: Take by mouth. cefdinir 300 mg oral capsule (20 sources) Cephalosporin Antibacterial Start: End: take 1 capsule by mouth every twelve hours Cefdinir 300 mg Capsule Discontinued 300 MG PO Q12H December 26, 2017 1:00am December 29, 2022 2:20pm Cefdinir Not-Kore[place] ing cephalexin 500 mg oral capsule (20 sources) Cephalosporin Antibacterial Start: 03-13-2023 End: 05-11-2024 take 1 capsule by mouth twice daily Cephalexin 500 mg capsule Discontinued 500 MG PO Twice daily 10 March 13, 2023 12:00am May 11, 2024 11:48am Start: 07-22-2022 End: 12-29-2022 take 1 capsule by mouth every eight hours Cephalexin 500 mg capsule Discontinued 500 MG PO Q8H 05 06July 22, 2022 12:00am December 29, 2022 2:20pm codeine phosphate 2 mg/ml / promethazine hydrochloride 1.25 mg/ml oral solution (20 sources) Opioid Agonist, Phenothiazine Start: 12-26-2017 End: 12-29-2022 take 1 mL by mouth every four hours as needed for cough Promethazine-Codeine 6.25-10 mg/5 mL Syrup Discontinued 5 ML PO Q4H as needed for Cough 120 December 26, 2017 1:00am December 29, 2022 2:21pm dapagliflozin 10 mg oral tablet (19 sources) Sodium-Glucose Cotransporter 2 Inhibitor Start: 07-06-2024 End: 12-27-2024 take 1 tablet by mouth once daily Dapagliflozin Propanediol (Farxiga) 10 mg tablet Discontinued 10 MG PO Daily July 21, 2024 12:00am December 27, 2024 3:21pm On Hold: Hold until seen by PCP. discuss alternative therapy diclofenac sodium 75 mg delayed release oral tablet (20 sources) Nonsteroidal Anti-inflammatory Drug Start: 12-29-2022 End: 03-13-2023 take 1 tablet by mouth twice daily Diclofenac Sodium 75 mg tablet,delayed release (DR/EC) Discontinued 75 MG PO Twice daily December 29, 2022 1:00am March 13, 2023 9:47am Start: 04-23-2022 End: 07-15-2024 take 1 tablet by mouth once daily diclofenac sodium 75 mg Oral EC Tab 75 mg = 1 tab(s), Oral, Daily, Refills(s) 0, Pain Start Date: 04/23/22 Status: Ordered Start: 04-23-2022 diclofenac sod ium 75 mg Oral EC Tab Refills(s) 0 Start Date: 04/23/22 Status: Ordered Comment on above: Take 75 mg by mouth once daily. doxycycline monohydrate 100 mg oral capsule (20 sources) Tetracycline-class Drug Start: 018 End: take 1 capsule by mouth twice daily Doxycycline Monohydrate 100 mg Capsule Discontinued 100 MG PO Twice daily December 26, 2017 1:00am December 29, 2022 2:20pm ergocalciferol 0.2 mg/ml oral solution (18 sources) Provitamin D2 Compound Start: 023 End: 024 take 200 ug by mouth once daily Ergocalciferol (Vitamin D2) 200 mcg/mL (8,000 unit/mL) Drops Discontinued 200 MCG PO Daily March 11, 2023 12:00am May 11, 2024 11:46am ferrous sulfate 325 mg oral tablet (3 sources) End: ferrous sulfate 325 mg (65 mg iron) tablet Take 325 mg by mouth. 0 07/24/2023 Discontinued Comment on above: Take 325 mg by mouth . fluticasone propionate 0.05 mg/actuat metered dose nasal spray (20 sources) Corticosteroid Start: 018 take 1 spray(s) nasal route once daily Fluticasone Propionate 50 MCG/ACT 1 spray in each nostril Nasally Once a day for 21 days Feb, Not-Taking Start: 12-26-2017 End: 12-29-2022 Fluticasone Propionate 50 mc g/actuation [place],Suspension Discontinued 1 SPRAY INTRANASAL Daily December 26, 2017 1:00am December 29, 2022 2:20pm furosemide 20 mg oral tablet (20 sources) Loop Diuretic Start: 09-02-2022 End: 12-27-2024 take 1 tablet by mouth once daily in the morning Furosemide 20 mg tablet Discontinued 20 MG PO Every morning December 29, 2022 1:00am December 27, 2024 3:21pm On Hold: Continue to hold, follow-up with PCP to restart Comment on above: Take 20 mg by mouth once daily. gabapentin 300 mg oral capsule (20 sources) Anti-epileptic Agent Start: 03-29-2024 End: 12-14-2025 take 1 capsule by mouth three times daily Start: 03-29-2024 End: 03-29-2025 take 1 capsule by mouth twice daily, then take 2 capsules by mouth at bedtime Gabapentin 300 mg capsule Discontinued 300 MG PO Twice daily May 11, 2024 11:50am December 27, 2024 3:23pm takes 1 in the afternoon and 2 before bedtime Start: 12-26-2017 End: 05-11-2024 take 3 capsules by mouth at bedtime Gabapentin 300 mg Capsule Discontinued 900 MG PO Bedtime December 26, 2017 1:00am May 11, 2024 11:53am Start: 12-26-2017 End: 05-11-2024 take 900 mg by mouth at bedtime Gabapentin Discontinue d 900 MG PO Bedtime December 26, 2017 12:00am May 11, 2024 10:53am Start: 12-26-2017 take 300 mg by mouth three times daily Gabapentin Active 300 MG PO Three times daily December 26, 2017 12:00am take 1 capsule by mo uth once daily at bedtime gabapentin (NEURONTIN) 300 mg capsule Take 300 mg by mouth daily at bedtime. Active Gabapentin Activ e Comment on above: Take 300 mg by mouth daily at bedtime. Honey (Medihoney (Honey)) 100 % paste (19 sources) Start: 12-29-2022 End: 03-11-2023 Honey (Medihoney (Honey)) 100 % paste Discontinued 1 APPLIC TOPICAL Twice daily December 29, 2022 12:00am March 11, 2023 4:44pm Start: 12-29-2022 End: 03-11-2023 Honey (Medihoney (Honey)) 10 0 % paste Discontinued 1 APPLIC TOPICAL Twice daily December 29, 2022 1:00am March 11, 2023 5:44pm Start: 12-29-2022 Honey (Medihon ey (Honey)) 100 % paste Active 1 APPLIC TOPICAL Twice daily December 29, 2022 12:00am JEN ADAN, 100 % pste (19 sources) Start: 12-01-2022 End: 07-15-2024 JEN ADAN, 100 % pste APPLY A THIN LAYER TWICE DAILY 12/01/2022 07/15/2024 Discontinued Start: 12-01-2022 HON LOCO EY, 100 % pste APPLY A THIN LAYER TWICE DAILY 0 12/01/2022 Active Comment on above: APPLY A THIN LAYER T WICE DAILY metFORMIN hydrochloride 1000 mg oral tablet (20 sources) Biguanide Start: End: take 1 tablet by mouth twice daily Metformin 1,000 mg Tablet Discontinued 1000 MG PO Twice daily December 26, 2017 1:00am July 22, 2024 1:23pm End: 07-15-2024 take 1000 mg by mouth once daily metformin HCl (METFORMIN ORAL) Take 1,000 mg by mouth once daily. 07/15/2024 Discontinued metFORMIN HCl Ac tive Comment on above: Take 1,000 mg by oleg th once daily. Omeprazole Magnesium (Prilosec Otc) 20 mg Tablet,Delayed Release (Dr/Ec) (17 sources) Start: 12-26-2017 End: 05-11-2024 take 1 tablet by mouth once daily Omeprazole Magnesium (Prilosec Otc) 20 mg Tablet,Delayed Release (Dr/Ec) Discontinued 20 MG PO Daily December 26, 2017 12:00am May 11, 2024 10:53am Start: 12-26-2017 End: 05-11-2024 take 1 tablet by mouth once daily Omeprazole Magnesium (Prilosec Otc) 20 mg Tablet,Delayed Release (Dr/Ec) Discontinued 20 MG PO Daily December 26, 2017 1:00am May 11, 2024 11:53am Start: 12-26-2017 take 1 tablet by oleg th once daily Omeprazole Magnesium (Prilosec Otc) 20 mg Tablet,Delayed Release (Dr/Ec) Active 20 MG PO Daily December 26, 2017 1:00am Start: 12-26-2017 take 1 tablet by oleg th once daily Omeprazole Magnesium (Prilosec Otc) 20 mg Tablet,Delayed Release (Dr/Ec) Active 20 MG PO Daily December 26, 2017 12:00am predniSONE 20 mg oral tablet (2 sources) [...] DAYS Vitamin D (2 sources) Vitamin D Not-Taking Problems Active Problems Problem Classification Problem Date Documented Date Episodic/Chronic Acquired foot deformities (20 sources) Acquired right hallux valgus; Translations: [Hallux valgus (acquired), right foot] Onset: 4 02-02-2024 Chronic Acute and unspecified renal failure (20 sources) Injury of kidney; Translations: [Acute kidney failure, unspecified] Onset: 3 07-22-2022 Episodic Acute bronchitis (20 sources) Acute bronchitis; Translations: [Acute bronchitis, unspecified] 12-26-2017 Episodic Anal and rectal conditions (13 sources) Rectal polyp 09-19-2022 Episodic Chronic kidney disease (20 sources) Chronic kidney disease stage 3; Translations: [Stage 3 chronic kidney disease] Onset: 4 03-11-2023 Chronic Chronic kidney disease (2 sources) Chronic kidney disease; Translations: [Stage 3b chronic kidney disease (HCC)] Onset: 4 Coagulation and hemorrhagic disorders (4 sources) Thrombocytopenic disorder; Translations: [Thrombocytopenia, unspecified] Onset: 5 04-15-2024 Chronic Deficiency and other anemia (2 sources) Anemia due to chronic blood loss; Translations: [Iron deficiency anemia secondary to blood loss (chronic)] Onset: 2 Chronic Deficiency and other anemia (16 sources) Anemia due to blood loss 04-23-2022 Chronic Deficiency and other anemia (20 sources) Iron deficiency anemia due to blood loss; Translations: [Iron deficiency anemia secondary to blood loss (chronic)] Onset: 2 Chronic Deficiency and other anemia (4 sources) Iron deficiency anemia secondary to blood loss (chronic); Translations: [IRON DEFIC ANEMIA SEC BLD LOSS CHRN] Onset: 2 Chronic Deficiency and other anemia (1 source) Anemia; Translations: [Anemia in stage 3a chronic kidney disease (HCC)] 04-25-2025 Chronic Deficiency and other anemia (2 sources) Anemia in chronic kidney disease; Translations: [Anemia in stage 3a chronic kidney disease (HCC)] Onset: 5 Chronic Deficiency and other anemia (20 sources) Anemia; Translations: [Anemia, unspecified] Onset: 2 04-23-2022 Episodic Deficiency and other anemia (6 sources) Iron deficiency anemia secondary to inadequate dietary iron intake; Translations: [Other iron deficiency anemias] Episodic Deficiency and other anemia (6 sources) Iron deficiency anemia; Translations: [Iron deficiency anemia, unspecified] 04-15-2024 Episodic Deficiency and other anemia (1 source) Anemia, unspecified; Translations: [Anemia, unspecified type] Onset: 5 Episodic Deficiency and other anemia (1 source) Iron deficiency anemia, unspecified; Translations: [Iron deficiency anemia, unspecified iron deficiency anemia type] Onset: 5 Episodic Deficiency and other anemia (1 source) Deficiency and other anemia; Translations: [Anemia in stage 3a chronic kidney disease (HCC)] Onset: 5 Diabetes mellitus with complications (20 sources) Type 2 diabetes mellitus with diabetic chronic kidney disease; Translations: [Type 2 diabetes mellitus] Onset: 3 Chronic Diabetes mellitus without complication (20 sources) Type 2 diabetes mellitus without complication; Translations: [Type 2 diabetes mellitus without complications] Onset: 2 Chronic Disorders of lipid metabolism (20 sources) Hyperlipidemia; Translations: [Hyperlipidemia, unspecified] Onset: 2 01-21-2022 Chronic Diverticulosis and diverticulitis (13 sources) Diverticular disease 09-19-2022 Chronic Esophageal disorders (20 sources) Gastroesophageal reflux disease without esophagitis; Translations: [Gastro-esophageal reflux disease without esophagitis] Onset: 0 Chronic Essential hypertension (20 sources) Essential hypertension; Translations: [Essential (primary) hypertension] Onset: 0 02-02-2024 Chronic Hemorrhoids (13 sources) Hemorrhoids 09-19-2022 Episodic Hypertension with complications and secondary hypertension (20 sources) Hypertensive urgency ; Translations: [Hypertensive urgency] Onset: 3 03-11-2023 Chronic Mood disorders (13 sources) Depressive disorder; Translations: [Depressive disorder] Onset: 0 02-02-2024 Chronic Nausea and vomiting (13 sources) Nausea; Translations: [Nausea] Onset: 3 Episodic Nutritional deficiencies (13 sources) Vitamin B deficiency; Translations: [Deficiency of other specified B group vitamins] Onset: 3 Episodic Other and unspecified benign neoplasm (13 sources) Gastric polyp 09-19-2022 Episodic Other and unspecified benign neoplasm (12 sources) History of polyp of colon 12-24-2022 Episodic Other diseases of kidney and ureters (13 sources) Secondary hyperparathyroidism; Translations: [Secondary hyperparathyroidism of renal origin] 05-11-2024 Chronic Other diseases of kidney and ureters (14 sources) Secondary hyperparathyroidism of renal origin; Translations: [Secondary hyperparathyroidism (of renal origin)] Onset: 5 05-11-2024 Chronic Other ear and sense organ disorders (17 sources) Mixed conductive and sensorineural hearing loss, bilateral; Translations: [Mixed conductive and sensorineural hearing loss, bilateral] Onset: 4 02-10-2024 Chronic Other gastrointestinal disorders (2 sources) H/O: gastrointestinal disease; Translations: [Personal history of other diseases of the digestive system] Onset: 3 Episodic Other hereditary and degenerative nervous system conditions (20 sources) Restless legs; Translations: [Restless legs syndrome] Onset: 2 04-23-2022 Chronic Other hereditary and degenerative nervous system conditions (7 sources) Restless legs syndrome; Translations: [Restless legs syndrome (RLS)] Chronic Other inflammatory condition of skin (1 source) Pruritus of skin; Translations: [Pruritus, unspecified] Onset: 4 Episodic Other inflammatory condition of skin (4 sources) Itching 09-29-2024 Episodic Other liver diseases (12 sources) Steatosis of liver; Translations: [Fatty (change of) liver, not elsewhere classified] Onset: 3 Chronic Other liver diseases (8 sources) Hepatic fibrosis; Translations: [Hepatic fibrosis, unspecified] Onset: 4 Chronic Other liver diseases (1 source) Fatty (change of) liver, not elsewhere classified; Translations: [Fatty (change of) liver, not elsewhere classified] Onset: 5 Chronic Other liver diseases (1 source) Enzyme level - finding; Translations: [Abnormal levels of other serum enzymes] Onset: 3 Episodic Other liver diseases (12 sources) Alkaline phosphatase raised 12-24-2022 Episodic Other nervous system disorders (20 sources) Polyneuropathy; Translations: [Polyneuropathy, unspecified] Onset: 2 04-23-2022 Chronic Other nervous system disorders (13 sources) Neuropathy of lower limb; Translations: [Unspecified mononeuropathy of unspecified lower limb] Onset: 4 02-02-2024 Chronic Other nervous system disorders (13 sources) Disorder of autonomic nervous system; Translations: [Disorder of the autonomic nervous system, unspecified] Onset: 4 03-28-2024 Chronic Other nervous system disorders (13 sources) Peripheral nerve disease ; Translations: [Polyneuropathy, unspecified] Onset: 4 03-28-2024 Chronic Other nervous system disorders (17 sources) Bilateral carpal tunnel syndrome; Translations: [Carpal tunnel syndrome, bilateral upper limbs] Onset: 4 03-28-2024 Chronic Other nervous system disorders (13 sources) Carpal tunnel syndrome of right wrist; Translations: [Carpal tunnel syndrome, right upper limb] Onset: 4 07-20-2024 Chronic Other nervous system disorders (20 sources) Slurred speech; Translations: [Slurred speech] 03-11-2023 Episodic Other nervous system disorders (18 sources) Paresthesia of hand ; Translations: [Paresthesia of skin] 03-11-2023 Episodic Other nervous system disorders (2 sources) Paresthesia of skin; Translations: [Disturbance of skin sensation] 03-13-2023 Episodic Other non-traumatic joint disorders (13 sources) Arthropathy; Translations: [Arthropathy, unspecified] Onset: 0 02-02-2024 Chronic Other nutritional; endocrine; and metabolic disorders (4 sources) Obese class II; Translations: [Body mass index (BMI) 36.0-36.9, adult] Chronic Other nutritional; endocrine; and metabolic disorders (2 sources) Body mass index 40+ - severely obese; Translations: [Body mass index (BMI) 45.0-49.9, adult] Chronic Other nutritional; endocrine; and metabolic disorders (2 sources) Body mass index (BMI) 36.0-36.9, adult Chronic Other nutritional; endocrine; and metabolic disorders (20 sources) Hypomagnesemia; Translations: [Hypomagnesemia] 04-15-2023 Chronic Other nutritional; endocrine; and metabolic disorders (8 sources) Metabolic syndrome X; Translations: [Metabolic syndrome] Onset: 4 Chronic Other nutritional; endocrine; and metabolic disorders (2 sources) Obesity; Translations: [Other obesity due to excess calories] Onset: 4 Chronic Other nutritional; endocrine; and metabolic disorders (5 sources) Obesity caused by energy imbalance 03-28-2024 Chronic Other nutritional; endocrine; and metabolic disorders (9 sources) Hypomagnesemia; Translations: [Disorders of magnesium metabolism] Onset: 5 07-04-2024 Chronic Other nutritional; endocrine; and metabolic disorders (3 sources) Abnormal weight loss; Translations: [Abnormal weight loss] Onset: 4 Episodic Other nutritional; endocrine; and metabolic disorders (5 sources) Weight loss 03-28-2024 Episodic Other upper respiratory disease (2 sources) Nasal congestion Episodic Pulmonary heart disease (1 source) Pulmonary hypertension, unspecified; Translations: [PULMONARY HYPERTENSION UNSPECIFIED] Onset: 2 Chronic Residual codes; unclassified (9 sources) Obstructive sleep apnea syndrome; Translations: [Obstructive sleep apnea (adult) (pediatric)] 11-14-2024 Chronic Residual codes; unclassified (7 sources) Obstructive sleep apnea (adult) (pediatric); Translations: [Obstructive sleep apnea (adult)(pediatric)] Chronic Residual codes; unclassified (7 sources) Insomnia; Translations: [Insomnia, unspecified] 11-14-2024 Episodic Residual codes; unclassified (5 sources) Insomnia, unspecified; Translations: [Insomnia, unspecified] 11-14-2024 Episodic Spondylosis; intervertebral disc disorders; other back problems (4 sources) Other spondylosis with radiculopathy, lumbar region; Translations: [OT SPONDYLS RADICULOPATHY LUMB RGN] Onset: 2 Chronic Syncope (20 sources) Syncope; Translations: [Syncope and collapse] Onset: 3 03-11-2023 Episodic Transient cerebral ischemia (18 sources) Transient cerebral ischemia; Translations: [Transient cerebral ischemic attack, unspecified] Onset: 4 08-16-2024 Chronic Unclassified (1 source) CHRN KIDNEY DISEASE STG 3 UNSP; Translations: [CHRN KIDNEY DISEASE STG 3 UNSP] Onset: 2 Unclassified (1 source) Other intervertebral disc degeneration, lumbar region without mention of lumbar back pain or lower extremity pain; Translations: [Other intervertebral disc degeneration, lumbar region without mention of lumbar back pain or lower extremity pain] Onset: 5 Urinary tract infections (20 sources) Acute urinary tract infection; Translations: [Urinary tract infection, site not specified] 07-22-2022 Episodic Viral infection (20 sources) Acute viral disease; Translations: [Viral infection, unspecified] 12-26-2017 Episodic Past or Other Problems Problem Classification Problem Date Documented Date Episodic/Chronic Cardiac dysrhythmias (20 sources) Palpitations; Translations: [Palpitations] Onset: 08-16-2024 07-21-2024 Episodic Diabetes mellitus without complication (1 source) Impaired fasting glucose; Translations: [IMPAIRED FASTING GLUCOSE] Onset: 09-10-2022 Episodic Other aftercare (1 source) Other fpc (current) drug therapy; Translations: [[facility] ENDORSEMENT CLERK CURRENT DRUG THERAPY] Onset: 09-10-2022 Episodic Other lower respiratory disease (4 sources) Shortness of breath; Translations: [SHORTNESS OF BREATH] Onset: 09-09-2022 Episodic Other nervous system disorders (6 sources) Slurred speech; Translations: [Other speech disturbance] Onset: 07-21-2024 03-13-2023 Episodic Other nervous system disorders (13 sources) Paresthesia; Translations: [Paresthesia of skin] Onset: 03-28-2024 07-20-2024 Episodic Other nervous system disorders (13 sources) Impairment of balance; Translations: [Other abnormalities of gait and mobility] Onset: 03-28-2024 03-28-2024 Episodic Other non-epithelial cancer of skin (13 sources) History of malignant neoplasm of skin; Translations: [Personal history of other malignant neoplasm of skin] Onset: 09-05-2010 02-02-2024 Episodic Other screening for suspected conditions (not mental disorders or infectious disease) (6 sources) Abnormal level of blood mineral; Translations: [Abnormal level of blood mineral] Onset: 02-23-2023 Episodic Otitis media and related conditions (13 sources) Bilateral tympanic membrane central perforation; Translations: [Central perforation of tympanic membrane, bilateral] Onset: 02-10-2024 02-10-2024 Episodic Spondylosis; intervertebral disc disorders; other back problems (1 source) Spinal stenosis, lumbar region with neurogenic claudication; Translations: [Spinal stenosis, lumbar region with neurogenic claudication] Onset: 02-08-2025 Episodic Varicose veins of lower extremity (13 sources) Venous varices; Translations: [Asymptomatic varicose veins of unspecified lower extremity] Onset: 09-05-2010 02-02-2024 Episodic Results Test Name Value Interpretation Reference Range Facility A1C with Estimated Average Cristi garrido 06-26-2025 Glucose [Mass/Vol] 157 mg/dL Normal [facility] Comment on above: Result Comment: PERF ORMED BY: [place] [address] PATHOLOGIST SPECIAL MACHINE OPERATOR KARTHIK CHICAS M.D. Performed By: #### H EPATIC, HS TROP, BNP, BMP, CK, PTT, CBC, PT #### [facility] [address] [place] [address] [place] Alanine aminotransferase [En zymatic activity/volume] in Serum or PlasmaOrdered By: Vinay Matta on 06-26-2025 ALT [Catalytic activity/Vol] 11 U/L Normal 7-52 [facility] Comment on above: Performed By: #### H EPATIC, HS TROP, BNP, BMP, CK, PTT, CBC, PT #### [facility] [address] [place] [address] [place] Albumin [Mass/volume] in Ser um or Plasma by Bromocresol green (BCG) dye binding methoOrdered By: Vinay Escalerating on 06-26-2025 Albumin BCG dye [Mass/Vol] 3.8 g/dL 3.5-5.7 [facility] Alkaline phosphatase [Enzyma tic activity/volume] in Serum or PlasmaOrdered By: Vinay Matta on 06-26-2025 ALP [Catalytic activity/Vol] 132 U/L High 34-104 [facility] Comment on above: Performed By: #### H EPATIC, HS TROP, BNP, BMP, CK, PTT, CBC, PT #### [facility] [address] Appearance of UrineOrdered B y: Marilyn Stewart on 06-26-2025 Appearance (U) Clear Normal Clear [facility] Comment on above: Order Comment: PT TO BRING SPECIMEN BACK Name Collection Type:: Clean-Voided Midstream Performed By: #### H EPATIC, HS TROP, BNP, BMP, CK, PTT, CBC, PT #### [facility] [address] Aspartate aminotransferase [ Enzymatic activity/volume] in Serum or PlasmaOrdered By: Vinay Matta on 06-26-2025 AST [Catalytic activity/Vol] 12 U/L Low 13-39 [facility] Comment on above: Performed By: #### H EPATIC, HS TROP, BNP, BMP, CK, PTT, CBC, PT #### [address] Bacteria [Presence] in Urine by AutomatedOrdered By: Marilyn Stewart on 06-26-2025 Bacteria Auto Ql (U) None seen [HPF] None Seen [facility] Bilirubin Test strip Ql (U)O rdered By: Marilyn Stewart on 06-26-2025 Bilirubin Ql (U) Negative Negative [facility] Bilirubin.total [Mass/volume ] in Serum or PlasmaOrdered By: Vinay Matta on 06-26-2025 Bilirubin [Mass/Vol] 0.7 mg/dL Normal 0.3-1.0 [facility] Comment on above: Performed By: #### H EPATIC, HS TROP, BNP, BMP, CK, PTT, CBC, PT #### [address] Blood estimated average gluc ose determination by estimation from glycated hemoglobinOrdered By: Vinay Bunting on 06-26-2025 Average glucose Estimated from glycated hemoglobin (Bld) [Mass/Vol] 157 mg/dL [facility] Calcium [Mass/volume] in Ser um or PlasmaOrdered By: Vinay Bunting on 06-26-2025 Calcium [Mass/Vol] 8.9 mg/dL Normal 8.6-10.3 [facility] Comment on above: Performed By: #### H EPATIC, HS TROP, BNP, BMP, CK, PTT, CBC, PT #### [facility] [address] Carbon dioxide, total [Moles /volume] in Serum or PlasmaOrdered By: Vinay Bunting on 06-26-2025 CO2 [Moles/Vol] 32.4 mmol/L High 21.0-31.0 [facility] Comment on above: Performed By: #### H EPATIC, HS TROP, BNP, BMP, CK, PTT, CBC, PT #### [facility] [address] [place] [address] [place] Chloride [Moles/volume] in S hilda or PlasmaOrdered By: Vinay Bunting on 06-26-2025 Chloride [Moles/Vol] 103 mmol/L Normal 98-107 [facility] Comment on above: Performed By: #### H EPATIC, HS TROP, BNP, BMP, CK, PTT, CBC, PT #### [facility] [address] [place] [address] [place] Cholesterol [Mass/volume] in Serum or PlasmaOrdered By: Vinay Bunting on 06-26-2025 Cholesterol [Mass/Vol] 102 mg/dL Low 140-200 [facility] Comment on above: Chol less than 200 m g/dl low riskChol 201-239 mg/dl borderline riskChol 240 mg/dl and greater high risk Result Comment: Chol less than 200 mg/dl low risk Chol 201-239 mg/dl borderline risk Chol 240 mg/dl and greater high risk Performed By: #### A 1C WT eA, LIPID #### [facility] [address] [place] [address] [place] Cholesterol in HDL [Mass/vol ume] in Serum or PlasmaOrdered By: Vinay Matta on 06-26-2025 Cholesterol in HDL [Mass/Vol] 37 mg/dL Normal 23-92 [facility] Comment on above: HDL CHOL ATP-III CLA SSIFICATION Cardiovascular RiskHDL > or equal to 60 mg/dL LOWHDL < 40 mg/dL HIGH Result Comment: HDL CHOL ATP-III CLASSIFICATION Cardiovascular Risk HDL > or equal to 60 mg/dL LOW HDL < 40 mg/dL HIGH Performed By: #### A 1C WT eA, LIPID #### [facility] [address] [place] [address] [facility] Cholesterol in LDL Calc [Mas s/Vol]Ordered By: Vinay Matta on 06-26-2025 Cholesterol in LDL [Mass/Vol] 43 mg/dL 0-100 [facility] Comment on above: LDL ATP III CLASSIFI CATIONLDL less than 100 mg/dL OptimalLDL 100-129 mg/dL Near or above optimalLDL 130-159 mg/dL Borderline highLDL 160-189 mg/dL HighLDL greater than 189 mg/dL Very high Cholesterol in VLDL Calc [Ma ss/Vol]Ordered By: Vinay Matta on 06-26-2025 Cholesterol in VLDL [Mass/Vol] 22 mg/dL [facility] Color of Urine by AutoOrdere d By: Marilyn Stewart on 06-26-2025 Color (U) Light-yellow Normal Yellow [facility] Comment on above: Order Comment: PT TO BRING SPECIMEN BACK Name Collection Type:: Clean-Voided Midstream Performed By: #### H EPATIC, HS TROP, BNP, BMP, CK, PTT, CBC, PT #### [facility] [address] [place] [address] [facility] Comprehensive Metabolic Pane palmer 06-26-2025 Albumin [Mass/Vol] 3.8 g/dL Normal 3.5-5.7 [facility] Comment on above: Performed By: #### H EPATIC, HS TROP, BNP, BMP, CK, PTT, CBC, PT #### [facility] [address] [place] [address] [facility] GFR/1.73 sq M.predicted MDRD (S/P/Bld) [Vol rate/Area] 41.095 mL/min/{1.73_m2} Normal [facility] Comment on above: Performed By: #### H EPATIC, HS TROP, BNP, BMP, CK, PTT, CBC, PT #### [facility] [address] Creatinine [Mass/volume] in Serum or PlasmaOrdered By: Vinay Matta on 06-26-2025 Creatinine [Mass/Vol] 1.34 mg/dL High 0.60-1.20 [facility] Comment on above: Performed By: #### H EPATIC, HS TROP, BNP, BMP, CK, PTT, CBC, PT #### [facility] [address] Creatinine [Mass/volume] in UrineOrdered By: Marilyn Stewart on 06-26-2025 Creatinine (U) [Mass/Vol] 63.00 mg/dL [facility] Comment on above: No reference range e stablished Dipstick and Microscopicon 0 06-26-2025 Bacteria,Urine None Seen Normal None Seen [facility] Comment on above: Order Comment: PT TO BRING SPECIMEN BACK Name Collection Type:: Clean-Voided Midstream Performed By: #### H EPATIC, HS TROP, BNP, BMP, CK, PTT, CBC, PT #### [facility] [address] Bilirubin,Urine Negative Normal Negative [facility] Comment on above: Order Comment: PT TO BRING SPECIMEN BACK Name Collection Type:: Clean-Voided Midstream Performed By: #### H EPATIC, HS TROP, BNP, BMP, CK, PTT, CBC, PT #### [facility] [address] [place] [address] [place] Glucose Ql (U) Normal Normal Normal [facility] Comment on above: Order Comment: PT TO BRING SPECIMEN BACK Name Collection Type:: Clean-Voided Midstream Performed By: #### H EPATIC, HS TROP, BNP, BMP, CK, PTT, CBC, PT #### [facility] [address] [place] [address] [place] Hyaline Casts,Urine None Normal 0-8 [facility] Comment on above: Order Comment: PT TO BRING SPECIMEN BACK Name Collection Type:: Clean-Voided Midstream Performed By: #### H EPATIC, HS TROP, BNP, BMP, CK, PTT, CBC, PT #### [address] Mucus,Urine Rare Normal [facility] Comment on above: Order Comment: PT TO BRING SPECIMEN BACK Name Collection Type:: Clean-Voided Midstream Result Comment: PERF ORMED BY: [place] [address] PATHOLOGIST SPECIAL MACHINE OPERATOR KARTHIK CHICAS M.D. Performed By: #### H EPATIC, HS TROP, BNP, BMP, CK, PTT, CBC, PT #### [address] Nitrite,Urine Negative Normal Negative [facility] Comment on above: Order Comment: PT TO BRING SPECIMEN BACK Name Collection Type:: Clean-Voided Midstream Performed By: #### H EPATIC, HS TROP, BNP, BMP, CK, PTT, CBC, PT #### [place] [address] [place] Occult Blood,Urine Negative Normal Negative [facility] Comment on above: Order Comment: PT TO BRING SPECIMEN BACK Name Collection Type:: Clean-Voided Midstream Performed By: #### H EPATIC, HS TROP, BNP, BMP, CK, PTT, CBC, PT #### [place] [address] [place] Protein,Urine Negative Normal Negative [facility] Comment on above: Order Comment: PT TO BRING SPECIMEN BACK Name Collection Type:: Clean-Voided Midstream Performed By: #### H EPATIC, HS TROP, BNP, BMP, CK, PTT, CBC, PT #### [place] [address] [place] RBC,Urine 1-2 Normal 0-4 [facility] Comment on above: Order Comment: PT TO BRING SPECIMEN BACK Name Collection Type:: Clean-Voided Midstream Performed By: #### H EPATIC, HS TROP, BNP, BMP, CK, PTT, CBC, PT #### [address] Specificy Placida,Urine 1.016 Normal 1.001-1.030 [facility] Comment on above: Order Comment: PT TO BRING SPECIMEN BACK Name Collection Type:: Clean-Voided Midstream Performed By: #### H EPATIC, HS TROP, BNP, BMP, CK, PTT, CBC, PT #### [address] Squamous Epithelial Cell,Urine 5-9 Normal 0-2 [facility] Comment on above: Order Comment: PT TO BRING SPECIMEN BACK Name Collection Type:: Clean-Voided Midstream Performed By: #### H EPATIC, HS TROP, BNP, BMP, CK, PTT, CBC, PT #### [address] Urobilinogen,Urine Normal Normal Normal [facility] Comment on above: Order Comment: PT TO BRING SPECIMEN BACK Name Collection Type:: Clean-Voided Midstream Performed By: #### H EPATIC, HS TROP, BNP, BMP, CK, PTT, CBC, PT #### [address] WBC,Urine 1-2 Normal 0-4 [facility] Comment on above: Order Comment: PT TO BRING SPECIMEN BACK Name Collection Type:: Clean-Voided Midstream Performed By: #### H EPATIC, HS TROP, BNP, BMP, CK, PTT, CBC, PT #### [address] Epithelial cells.squamous [# /area] in Urine sediment by Automated countOrdered By: Marilyn Smithr on 06-26-2025 Epithelial cells.squamous Auto (Urine sed) [#/Area] 5-9 [HPF] High 0-2 [facility] Erythrocyte distribution wid th [Ratio] by Automated countOrdered By: Marilyn Terry on 06-26-2025 Erythrocyte distribution width (RBC) [Ratio] 16.6 % High 11.9-15.3 [facility] Comment on above: Performed By: #### H EPATIC, HS TROP, BNP, BMP, CK, PTT, CBC, PT #### [facility] [address] Erythrocytes [#/area] in Uri ne sediment by Automated countOrdered By: Marilyn Stewart on 06-26-2025 RBC Auto (Urine sed) [#/Area] 1-2 [HPF] 0-4 [facility] Erythrocytes [#/volume] in B lood by Automated countOrdered By: Marilyn Stewart on 06-26-2025 RBC (Bld) [#/Vol] 3.77 10*6/uL Normal 3.60-5.00 [facility] Comment on above: Performed By: #### H EPATIC, HS TROP, BNP, BMP, CK, PTT, CBC, PT #### [facility] [address] Glucose [Mass/volume] in Ser um or PlasmaOrdered By: Vinay Matta on 06-26-2025 Glucose [Mass/Vol] 171 mg/dL High 70-100 [facility] Comment on above: ADA recommended refe rence rangeRandom Glucose Reference Range is dependent on time and content of last meal. Glucose of more than 200 mg/dL in a nonstressed, ambulatory subject supports the diagnosis of Diabetes Mellitus. Result Comment: [place] om Glucose Reference Range is dependent on time and content of last meal. Glucose of more than 200 mg/dL in a nonstressed, ambulatory subject supports the diagnosis of Diabetes Mellitus. ADA recommended reference range Performed By: #### H EPATIC, HS TROP, BNP, BMP, CK, PTT, CBC, PT #### [facility] [address] [place] [id number] [facility] Glucose [Mass/volume] in Uri ne by Test stripOrdered By: Marilyn Stewart on 06-26-2025 Glucose Test strip (U) [Mass/Vol] Normal mg/dL Normal [facility] Hematocrit [Volume Fraction] of Blood by Automated countOrdered By: Marilyn Stewart on 06-26-2025 Hematocrit (Bld) [Volume fraction] 32.4 % Low 34.0-46.4 [facility] Comment on above: Performed By: #### H EPATIC, HS TROP, BNP, BMP, CK, PTT, CBC, PT #### [address] Hemoglobin A1c/Hemoglobin.to himanshu in BloodOrdered By: Vinay Matta on 06-26-2025 HbA1c (Bld) [Mass fraction] 7.1 % High 4.3-5.6 [facility] Comment on above: Increased risk for d iabetes: 5.7 - 6.4diabetes: >6.4glycemic control for adults with diabetes: <7.0 Result Comment: Incr eased risk for diabetes: 5.7 - 6.4 diabetes: >6.4 glycemic control for adults with diabetes: <7.0 Performed By: #### H EPATIC, HS TROP, BNP, BMP, CK, PTT, CBC, PT #### [address] Hemoglobin Test strip Ql (U) Ordered By: Marilyn Stewart on 06-26-2025 Hemoglobin Ql (U) Negative Negative [facility] Hemoglobin [Mass/volume] in BloodOrdered By: Marilyn Stewart on 06-26-2025 Hemoglobin (Bld) [Mass/Vol] 11.1 g/dL Low 11.8-15.4 [facility] Comment on above: Performed By: #### H EPATIC, HS TROP, BNP, BMP, CK, PTT, CBC, PT #### [address] Hemogram CBC Without Diffon 06-26-2025 Mean Corpuscular HGB Conc 34.1 g/dL Normal 32.0-35.0 [facility] Comment on above: Performed By: #### H EPATIC, HS TROP, BNP, BMP, CK, PTT, CBC, PT #### [address] White Blood Count 5.4 [CFU]/mL Normal 3.8-11.6 [facility] Comment on above: Performed By: #### H EPATIC, HS TROP, BNP, BMP, CK, PTT, CBC, PT #### [facility] [address] [place] [address] [place] Hyaline casts [#/area] in Ur ine sediment by Automated countOrdered By: Marilyn Stewart on 06-26-2025 Hyaline casts Auto (Urine sed) [#/Area] None [LPF] 0-8 [facility] Ketones [Presence] in Urine by Test stripOrdered By: Marilyn Stewart on 06-26-2025 Ketones Ql (U) Negative Normal Negative [facility] Comment on above: Order Comment: PT TO BRING SPECIMEN BACK Name Collection Type:: Clean-Voided Midstream Performed By: #### H EPATIC, HS TROP, BNP, BMP, CK, PTT, CBC, PT #### [facility] [address] Leukocyte esterase [Presence ] in Urine by Test stripOrdered By: Marilyn Stewart on 06-26-2025 Leukocyte esterase Test strip Ql (U) Negative Normal Negative [facility] Comment on above: Order Comment: PT TO BRING SPECIMEN BACK Name Collection Type:: Clean-Voided Midstream Performed By: #### H EPATIC, HS TROP, BNP, BMP, CK, PTT, CBC, PT #### [facility] [address] [place] [address] [place] Leukocytes [#/area] in Urine sediment by Automated countOrdered By: Marilyn Stewart on 06-26-2025 WBC Auto (Urine sed) [#/Area] 1-2 [HPF] 0-4 [facility] Leukocytes [#/volume] correc remberto for nucleated erythrocytes in Blood by Automated counOrdered By: Marilyn Stewart on 06-26-2025 WBC corrected for nucl RBC Auto (Bld) [#/Vol] 5.4 10*3/uL 3.8-11.6 [facility] Lipid Panelon 06-26-2025 LDL Cholesterol,Calculate d 43 mg/dL Normal 0-100 [facility] Comment on above: Result Comment: LDL ATP III CLASSIFICATION LDL less than 100 mg/dL Optimal LDL 100-129 mg/dL Near or above optimal LDL 130-159 mg/dL Borderline high LDL 160-189 mg/dL High LDL greater than 189 mg/dL Very high Performed By: #### A [facility] eA, LIPID #### [facility] [address] Triglyceride w/Reflex 112 mg/dL Normal 0-149 [facility] Comment on above: Result Comment: TRIG ATP III CLASSIFICATION TRIG less than 150 mg/dL Normal TRIG 150-199 mg/dL Borderline high TRIG 200-500 mg/dL High TRIG greater than 500 mg/dL Very high Standard traceable to the Center for Disease Conrtrol and Prevention (CDC) test method. Performed By: #### A [facility] Drake, LIPID #### [facility] [address] VLDL CHOLESTEROL 22 mg/dL Normal [facility] Comment on above: Performed By: #### A 1[facility] Drake, LIPID #### [address] MCH [Entitic mass] by Automa remberto countOrdered By: Marilyn Stewart on 06-26-2025 MCH (RBC) [Entitic mass] 29.3 pg Normal 24.7-34.3 [facility] Comment on above: Performed By: #### H EPATIC, HS TROP, BNP, BMP, CK, PTT, CBC, PT #### [address] MCHC Auto (RBC) [Mass/Vol]Or dered By: Marilyn Stewart on 06-26-2025 MCHC (RBC) [Mass/Vol] 34.1 g/dL 32.0-35.0 [facility] MCV [Entitic volume] by Auto mated countOrdered By: Marilyn Stewart on 06-26-2025 MCV (RBC) [Entitic vol] 86.0 fL Normal 80-100 [facility] Comment on above: Performed By: #### H EPATIC, HS TROP, BNP, BMP, CK, PTT, CBC, PT #### [address] Magnesium [Mass/volume] in S hilda or PlasmaOrdered By: Marilyn Stewart on 06-26-2025 Magnesium [Mass/Vol] 1.4 mg/dL Low 1.9-2.7 [facility] Comment on above: Performed By: #### H EPATIC, HS TROP, BNP, BMP, CK, PTT, CBC, PT #### [facility] [address] Mucus [Presence] in Urine by AutomatedOrdered By: Marilyn Stewart on 06-26-2025 Mucus Auto Ql (U) Rare [LPF] [facility] Nitrite Test strip Ql (U)Ord ered By: Marilyn Stewart on 06-26-2025 Nitrite Ql (U) Negative Negative [facility] No Panel InformationOrdered By: Vinay Matta on 06-26-2025 Estimated GFR (CKD-EPI) 41.095 mL/Min [facility] Creatinine Clearance (Chem N/A [facility] Parathyrin.intact [Mass/volu me] in Serum or PlasmaOrdered By: Marilyn Stewart on 06-26-2025 Parathyrin.intact [Mass/Vol] 48.7 pg/mL [facility] Parathyroid Hormone Intacton 06-26-2025 Parathyroid Hormone Intact 48.7 pg/mL Normal [facility] Comment on above: Result Comment: PERF ORMED BY: [place] [address] PATHOLOGIST SPECIAL MACHINE OPERATOR KARTHIK CHICAS M.D. Performed By: #### H EPATIC, HS TROP, BNP, BMP, CK, PTT, CBC, PT #### [facility] [address] [place] [address] Phosphate [Mass/volume] in S hilda or PlasmaOrdered By: Marilyn Stewart on 06-26-2025 Phosphate [Mass/Vol] 4.0 mg/dL Normal 2.5-4.5 [facility] Comment on above: Result Comment: PERF ORMED BY: [place] [address] PATHOLOGIST SPECIAL MACHINE OPERATOR KARTHIK CHICAS M.D. Performed By: #### H EPATIC, HS TROP, BNP, BMP, CK, PTT, CBC, PT #### [facility] [address] [place], [place] [id number] [facility] Platelet mean volume [Entiti c volume] in Blood by Automated countOrdered By: Marilyn Stewart on 06-26-2025 Platelet mean volume (Bld) [Entitic vol] 7.1 fL Normal 6.3-10.7 [facility] Comment on above: Result Comment: PERF ORMED BY: [place] [address] PATHOLOGIST SPECIAL MACHINE OPERATOR KARTHIK CHICAS M.D. Performed By: #### H EPATIC, HS TROP, BNP, BMP, CK, PTT, CBC, PT #### [address] Platelets [#/volume] in Bloo d by Automated countOrdered By: Marilyn Stewart on 06-26-2025 Platelets (Bld) [#/Vol] 141 10*3/uL Low 150-450 [facility] Comment on above: Performed By: #### H EPATIC, HS TROP, BNP, BMP, CK, PTT, CBC, PT #### [address] Potassium [Moles/volume] in Serum or PlasmaOrdered By: Vinay Matta on 06-26-2025 Potassium [Moles/Vol] 4.6 mmol/L Normal 3.5-5.1 [facility] Comment on above: Performed By: #### H EPATIC, HS TROP, BNP, BMP, CK, PTT, CBC, PT #### [place] [address] [place] Protein Creat Ratio Ur Rando mon 06-26-2025 Creatinine, Urine (Random) 63.00 mg/dL Normal [facility] Comment on above: Order Comment: PT TO BRING SPECIMEN BACK Result Comment: No r eference range established Performed By: #### H EPATIC, HS TROP, BNP, BMP, CK, PTT, CBC, PT #### [address] Urine Protein/Creatinine Ratio 222 mg/g{Cre} High 0-200 [facility] Comment on above: Order Comment: PT TO BRING SPECIMEN BACK Result Comment: PERF ORMED BY: [place] [address] PATHOLOGIST SPECIAL MACHINE OPERATOR KARTHIK CHICAS M.D. Performed By: #### H EPATIC, HS TROP, BNP, BMP, CK, PTT, CBC, PT #### [address] Protein Test strip (U) [Mass /Vol]Ordered By: Marilyn Terry on 06-26-2025 Protein (U) [Mass/Vol] Negative Negative [facility] Protein [Mass/volume] in Ser um or PlasmaOrdered By: Vinay Bunting on 06-26-2025 Protein [Mass/Vol] 5.8 g/dL Low 6.4-8.9 [facility] Comment on above: Performed By: #### H EPATIC, HS TROP, BNP, BMP, CK, PTT, CBC, PT #### [address] Protein [Mass/volume] in Uri neOrdered By: Marilyn Terry on 06-26-2025 Protein (U) [Mass/Vol] 14 mg/dL High 0-9 [facility] Comment on above: Order Comment: PT TO BRING SPECIMEN BACK Performed By: #### H EPATIC, HS TROP, BNP, BMP, CK, PTT, CBC, PT #### [address] Serum globulin measurement b y calculation (mass/volume)Ordered By: Vinay Bunting on 06-26-2025 Globulin (S) [Mass/Vol] 2.0 g/dL [facility] Comment on above: Performed By: #### H EPATIC, HS TROP, BNP, BMP, CK, PTT, CBC, PT #### [address] Serum or plasma albumin/glob ulin mass ratioOrdered By: Vinay Bunting on 06-26-2025 Albumin/Globulin [Mass ratio] 1.9 {ratio} [facility] Comment on above: Performed By: #### H EPATIC, HS TROP, BNP, BMP, CK, PTT, CBC, PT #### [facility] [address] Serum or plasma anion gap de terminationOrdered By: Vinay Matta on 06-26-2025 Anion gap [Moles/Vol] 9.2 mmol/L Normal 6.0-15.0 [facility] Comment on above: Performed By: #### H EPATIC, HS TROP, BNP, BMP, CK, PTT, CBC, PT #### [facility] [address] Serum or plasma total choles terol/high density lipoprotein (HDL) cholesterol mass ratOrdered By: Vinay Matta on 06-26-2025 Cholesterol.total/Cho lesterol in HDL [Mass ratio] 2.8 {ratio} Normal <5.0 [facility] Comment on above: Result Comment: PERF ORMED BY: [place] [address] PATHOLOGIST SPECIAL MACHINE OPERATOR KARTHIK CHICAS M.D. Performed By: #### A 1C [facility] eA, LIPID #### [facility] [address] Sodium [Moles/volume] in Ser um or PlasmaOrdered By: Vinay Matta on 06-26-2025 Sodium [Moles/Vol] 140 mmol/L Normal 136-145 [facility] Comment on above: Performed By: #### H EPATIC, HS TROP, BNP, BMP, CK, PTT, CBC, PT #### [facility] [address] Specific gravity Test strip (U) [Rel density]Ordered By: Marilyn Stewart on 06-26-2025 Specific gravity (U) [Rel density] 1.016 1.001-1.030 [facility] Triglyceride [Mass/volume] i n Serum or PlasmaOrdered By: Vinay Matta on 06-26-2025 Triglyceride [Mass/Vol] 112 mg/dL 0-149 [facility] Comment on above: TRIG ATP III CLASSIF ICATIONTRIG less than 150 mg/dL NormalTRIG 150-199 mg/dL Borderline highTRIG 200-500 mg/dL High TRIG greater than 500 mg/dL Very highStandard traceable to the Center for Disease Conrtrol and Prevention (CDC) test method. Urate [Mass/volume] in Serum or PlasmaOrdered By: Marilyn Stewart on 06-26-2025 Urate [Mass/Vol] 3.7 mg/dL Normal 2.3-6.6 [facility] Comment on above: Performed By: #### H EPATIC, HS TROP, BNP, BMP, CK, PTT, CBC, PT #### [facility] [address] Urea nitrogen [Mass/volume] in Serum or PlasmaOrdered By: Vinay Matta on 06-26-2025 Urea nitrogen [Mass/Vol] 33 mg/dL High 7-25 [facility] Comment on above: Performed By: #### H EPATIC, HS TROP, BNP, BMP, CK, PTT, CBC, PT #### [facility] [address] Urine protein/creatinine rat ioOrdered By: Marilyn Stewart on 06-26-2025 Protein/Creatinine (U) [Ratio] 222 mg/g{Cre} High 0-200 [facility] Urobilinogen Test strip (U) [Mass/Vol]Ordered By: Marilyn Stewart on 06-26-2025 Urobilinogen (U) [Mass/Vol] Normal mg/dL Normal [facility] Vitamin D 25 Hydroxy Totalon 06-26-2025 Vitamin D 25 Hydroxy Total 61.6 ng/mL Normal 30-100 [facility] Comment on above: Result Comment: CHI MIN D STATUS 25(OH)VITAMIN D RANGE (ng/mL) Deficient <20 Insufficient 20 to <30 Sufficient 30 to 100 Reference: Oli MF,Albert NC, Beltran LACKEY, et al. Evaluation,treatment, and prevention of vitamin D deficiency; an Endocrine Society clinical practice guideline. JCEM. 2010; 96(7):1911-30. PERFORMED BY: [place] [address] PATHOLOGIST SPECIAL MACHINE OPERATOR KARTHIK CHICAS M.D. Performed By: #### H EPATIC, HS TROP, BNP, BMP, CK, PTT, CBC, PT #### [facility] [address] [place] [address] [facility] Vitamin D+Metabolites [Mass/ volume] in Serum or PlasmaOrdered By: Marilyn Stewart on 06-26-2025 Vitamin D+Metabolites [Mass/Vol] 61.6 ng/mL 30-100 [facility] Comment on above: VITAMIN D STATUS 25( [place])VITAMIN D RANGE (ng/mL) Deficient <20 Insufficient 20 to <30Sufficient 30 to 100Reference: Oli MF,Albert PRATT, Beltran LACKEY, et al. Evaluation,treatment, and prevention of vitamin D deficiency; an Endocrine Society clinical practice guideline. JCEM. 2010; 96(7):1911-30. pH of Urine by Test stripOrd ered By: Marilyn Stewart on 06-26-2025 pH (U) 6.0 [pH] Normal 5.0-9.0 [facility] Comment on above: Order Comment: PT TO BRING SPECIMEN BACK Name Collection Type:: Clean-Voided Midstream Performed By: #### H EPATIC, HS TROP, BNP, BMP, CK, PTT, CBC, PT #### [facility] [address] [place] [address] [facility] CNOVSPon 04-25-2025 CNOVSP Visit (SP) Office (H MONICA) ANH TEJEDA ([id number]) 1950 F Date Time Provider Department 04/25/25 11:00 AM DAKSHA BRIDGES During your visit today, we recorded the following information about you: Temperature Pulse Respiration Blood pressure 97.9 degrees 84/minute 18/minute 158/78 Weight Height 100.9 kg 1.58 m Daksha Bridges PA-C 04/25/2025 11:19 AM Signed Hematology Progress Note PATIENT NAME: Anh Tejeda CLINIC NO.: [id number] ATTENDING PHYSICIAN: Henry Walker MD DATE OF SERVICE: 04/25/2025 This note was copied from prior heme/onc encounter from 04/07. The patient's medications, allergies, past medical/surgical hx, family hx, ROS, and physical exam have all been reviewed and updated as appropriate. The interval history and assessment/plan content have been modified and are specific to today's (04/25/2025) purpose for the visit. CHIEF COMPLAINT: Follow up for anemia Diagnosis: NAINA Stage 3a CKD Treatment: Venofer x 3 doses 10/2022, again in January 2024 Interval History: Patient with CKD presents for evaluation of anemia. In December, hemoglobin was 11 g/dL. In March, hemoglobin decreased to 10 g/dL. Recent labs show hemoglobin returned to 11 g/dL. Iron levels were normal, with elevated ferritin. Folate and B12 levels were within normal limits. Thyroid function tests were normal. Haptoglobin was normal, and reticulocyte count was elevated, indicating active bone marrow function. EPO level was high, suggesting adequate production by the kidneys. M protein concentration was negative, ruling out myeloma. Patient reports increased sensitivity to cold over the past few weeks. Denies issues with appetite, early satiety, or night sweats. Not currently on blood thinners. Current Outpatient Medications Medication Sig baclofen 10 mg tablet Take 5 mg by mouth once daily. loratadine (CLARITIN) 5 mg/5 mL syrup Take 5 mg by mouth as needed for cold/allergy symptoms. amoxicillin-clavulanate potassium (AUGMENTIN) 875-125 mg per tablet (Patient not taking: Reported on 04/07/2025) pioglitazone (ACTOS) 15 mg tablet diphenhydrAMINE HCl (CHILDREN'S BENADRYL ALLERGY) 12.5 mg chewable tablet 25 mg. (Patient not taking: Reported on 04/07/2025) FARXIGA 10 mg tablet TAKE 1 TABLET BY MOUTH EVERYDAY FOR DIABETES (Patient not taking: Reported on 04/07/2025) resmetirom (REZDIFFRA) 80 mg tablet once daily. allopurinol (ZYLOPRIM) 300 mg tablet 300 mg. JANUVIA 50 mg tablet Take 1 tablet by mouth every afternoon. albuterol HFA (PROVENTIL HFA, VENTOLIN HFA) 90 mcg/actuation inhaler INHALE 2 PUFFS BY MOUTH EVERY 4 HOURS NEEDED FOR COUGH (Patient not taking: Reported on 04/07/2025) magnesium oxide 400 mg magnesium tab Take [...] Drug use: Not Currently REVIEW OF SYSTEMS Constitutional: (-) night sweats Gastrointestinal: (-) decreased appetite Endocrine: (+) cold intolerance PHYSICAL EXAMINATION: BP 158/78 Pulse 84 Temp 36.6 ?C (97.9 ?F) (Temporal) (more content not included)... Normal [facility] ERYTHROPOIETIN/EPOon 025 Erythropoietin (EPO) Qn 26.7 [IU]/L High [facility] Erythropoietin (EPO) Qnon Interpretation and review of laboratory results Abnormal [facility] Test analyzed by the [employer] DxI method. [facility] [place] CBC W Auto Differential pane l (Bld)on 04-18-2025 Basophils (Bld) [#/Vol] [facility] Basophils/100 WBC (Bld) 0.2 % [facility] Differential cell count method Nom (Bld) Auto [facility] Eosinophils (Bld) [#/Vol] 0.09 10*3/uL [facility] Eosinophils/100 WBC (Bld) 1.6 % [facility] Erythrocyte distribution width (RBC) [Ratio] 16.4 % High 11.5 - 15.0 % [facility] Hematocrit (Bld) [Volume fraction] 32.9 % Low 36.0 - 46.0 % [facility] Hemoglobin (Bld) [Mass/Vol] 11 g/dL Low 11.5 - 15.5 g/dL [facility] Immature granulocytes (Bld) [#/Vol] [facility] Immature granulocytes/100 WBC (Bld) 0.4 % [facility] Lymphocytes (Bld) [#/Vol] 1.4 10*3/uL [facility] Lymphocytes/100 WBC (Bld) 24.8 % [facility] MCH (RBC) [Entitic mass] 29.5 pg 26.0 - 34.0 pg [facility] MCHC (RBC) [Mass/Vol] 33.4 g/dL 30.5 - 36.0 g/dL [facility] MCV (RBC) [Entitic vol] 88.2 fL 80.0 - 100.0 fL [facility] Monocytes (Bld) [#/Vol] 0.36 10*3/uL [facility] Monocytes/100 WBC (Bld) 6.4 % [facility] Neutrophils (Bld) [#/Vol] 3.77 10*3/uL [facility] Neutrophils/100 WBC (Bld) 66.6 % [facility] Nucleated RBC (Bld) [#/Vol] [facility] Nucleated RBC/100 WBC (Bld) [Ratio] 0 % /100 WBC [facility] Platelet mean volume (Bld) [Entitic vol] 9 fL 9.0 - 12.7 fL [facility] Platelets (Bld) [#/Vol] 136 10*3/uL Low [facility] RBC (Bld) [#/Vol] 3.73 10*6/uL Low 3.90 - 5.2 0 m/uL [facility] WBC (Bld) [#/Vol] 5.65 10*3/uL [facility] Basophils (Bld) [#/Vol] 10*3/uL Normal <0.11 [facility] Comment on above: Order Comment: Speci men Type: BLOOD SPECIMENOrdering Facility: [facility] Address: [address] [place] [address] Performed By: #### 1 4196-0, 66298-9 ####[facility] LABCLIA [id number] [place] [address] Basophils/100 WBC (Bld) 0.2 % Normal [facility] Comment on above: Order Comment: Speci men Type: BLOOD SPECIMENOrdering Facility: [facility] Address: [address] [place] [address] Performed By: #### 1 4196-0, 92781-6 ####[facility] LABCLIA [id number] [place] [address] Differential cell count method Nom (Bld) Auto Normal [facility] Comment on above: Order Comment: Speci men Type: BLOOD SPECIMENOrdering Facility: [facility] Address: [address] [place] [address] Performed By: #### 1 4196-0, 24523-2 ####[facility] LABCLIA [id number] [place] [address] Eosinophils (Bld) [#/Vol] 0.09 10*3/uL Normal <0.46 [facility] Comment on above: Order Comment: Speci men Type: BLOOD SPECIMENOrdering Facility: [facility] Address: [address] [place] [address] Performed By: #### 1 4196-0, 32323-8 ####[facility] LABCLIA [id number] [place] [address] Eosinophils/100 WBC (Bld) 1.6 % Normal [facility] Comment on above: Order Comment: Speci men Type: BLOOD SPECIMENOrdering Facility: [facility] Address: [address] [place] [address] Performed By: #### 1 4196-0, 15045-3 ####[facility] LABCLIA [id number] [place] [address] Erythrocyte distribution width (RBC) [Ratio] 16.4 % High 11.5-15.0 [facility] Comment on above: Order Comment: Speci men Type: BLOOD SPECIMENOrdering Facility: [facility] Address: [address] [place] [address] Performed By: #### 1 4196-0, 49653-6 ####[facility] LABCLIA [id number] [place] [address] Hematocrit (Bld) [Volume fraction] 32.9 % Low 36.0-46.0 [facility] Comment on above: Order Comment: Speci men Type: BLOOD SPECIMENOrdering Facility: [facility] Address: [address] [place] [address] Performed By: #### 1 4196-0, 62535-7 ####[facility] LABCLIA [id number] [place] [address] Hemoglobin (Bld) [Mass/Vol] 11.0 g/dL Low 11.5-15.5 [facility] Comment on above: Order Comment: Speci men Type: BLOOD SPECIMENOrdering Facility: [facility] Address: [address] [place] [address] Performed By: #### 1 4196-0, 85319-6 ####[facility] LABCLIA [id number] [place] [address] Immature granulocytes (Bld) [#/Vol] 10*3/uL Normal <0.10 [facility] Comment on above: Order Comment: Speci men Type: BLOOD SPECIMENOrdering Facility: [facility] Address: [address] [place] [address] Performed By: #### 1 4196-0, 19155-4 ####[facility] LABCLIA [id number] [place] [address] Immature granulocytes/100 WBC (Bld) 0.4 % Normal [facility] Comment on above: Order Comment: Speci men Type: BLOOD SPECIMENOrdering Facility: [facility] Address: [address] [place] [address] Performed By: #### 1 4196-0, 33584-1 ####[facility] LABCLIA [id number] [place] [address] Lymphocytes (Bld) [#/Vol] 1.40 10*3/uL Normal 1.00-4.00 [facility] Comment on above: Order Comment: Speci men Type: BLOOD SPECIMENOrdering Facility: [facility] Address: [address] [place] [address] Performed By: #### 1 4196-0, 40692-7 ####[facility] LABCLIA [id number] [place] [address] Lymphocytes/100 WBC (Bld) 24.8 % Normal [facility] Comment on above: Order Comment: Speci men Type: BLOOD SPECIMENOrdering Facility: [facility] Address: [address] [place] [address] Performed By: #### 1 4196-0, 44672-7 ####[facility] LABCLIA [id number] [place] [address] MCH (RBC) [Entitic mass] 29.5 pg Normal 26.0-34.0 [facility] Comment on above: Order Comment: Speci men Type: BLOOD SPECIMENOrdering Facility: [facility] Address: [address] [place] [address] Performed By: #### 1 4196-0, 97824-5 ####[facility] LABCLIA [id number] [place] [address] MCHC (RBC) [Mass/Vol] 33.4 g/dL Normal 30.5-36.0 [facility] Comment on above: Order Comment: Speci men Type: BLOOD SPECIMENOrdering Facility: [facility] Address: [address] [place] [address] Performed By: #### 1 4196-0, 27494-6 ####[facility] LABCLIA [id number] [place] [address] MCV (RBC) [Entitic vol] 88.2 fL Normal 80.0-100.0 [facility] Comment on above: Order Comment: Speci men Type: BLOOD SPECIMENOrdering Facility: [facility] Address: [address] [place] [address] Performed By: #### 1 4196-0, 11928-7 ####[facility] LABIA [id number] [place] [address] Monocytes (Bld) [#/Vol] 0.36 10*3/uL Normal <0.87 [facility] Comment on above: Order Comment: Speci men Type: BLOOD SPECIMENOrdering Facility: [facility] Address: [address] [place] [address] Performed By: #### 1 4196-0, 38603-0 ####[facility] LABCLIA [id number] [place] [address] Monocytes/100 WBC (Bld) 6.4 % Normal [facility] Comment on above: Order Comment: Speci men Type: BLOOD SPECIMENOrdering Facility: [facility] Address: [address] [place] [address] Performed By: #### 1 4196-0, 37422-5 ####[facility] LABCLIA [id number] [place] [address] Neutrophils (Bld) [#/Vol] 3.77 10*3/uL Normal 1.45-7.50 [facility] Comment on above: Order Comment: Speci men Type: BLOOD SPECIMENOrdering Facility: [facility] Address: [address] [place] [address] Performed By: #### 1 4196-0, 86876-4 ####[facility] LABCLIA [id number] [place] [address] Neutrophils/100 WBC (Bld) 66.6 % Normal [facility] Comment on above: Order Comment: Speci men Type: BLOOD SPECIMENOrdering Facility: [facility] Address: [address] [place] [address] Performed By: #### 1 4196-0, 20616-8 ####[facility] LABIA [id number] [place] [address] Nucleated RBC (Bld) [#/Vol] 10*3/uL Normal <0.01 [facility] Comment on above: Order Comment: Speci men Type: BLOOD SPECIMENOrdering Facility: [facility] Address: [address] [place] [address] Performed By: #### 1 4196-0, 03447-2 ####[facility] LABIA [id number] [place] [address] Nucleated RBC/100 WBC (Bld) [Ratio] 0.0 /100 WBC Normal [facility] Comment on above: Order Comment: Speci men Type: BLOOD SPECIMENOrdering Facility: [facility] Address: [address] [place] [address] Performed By: #### 1 4196-0, 70138-8 ####[facility] LABIA [id number] [place] [address] Platelet mean volume (Bld) [Entitic vol] 9.0 fL Normal 9.0-12.7 [facility] Comment on above: Order Comment: Speci men Type: BLOOD SPECIMENOrdering Facility: [facility] Address: [address] [place] [address] Performed By: #### 1 4196-0, 51939-7 ####[facility] LABCLIA [id number] [place] [address] Platelets (Bld) [#/Vol] 136 10*3/uL Low 150-400 [facility] Comment on above: Order Comment: Speci men Type: BLOOD SPECIMENOrdering Facility: [facility] Address: [address] [place] [address] Performed By: #### 1 4196-0, 27820-0 ####[facility] LABCLIA [id number] [place] [address] RBC (Bld) [#/Vol] 3.73 10*6/uL Low 3.90-5.20 [facility] Comment on above: Order Comment: Speci men Type: BLOOD SPECIMENOrdering Facility: [facility] Address: [address] [place] [address] Performed By: #### 1 4196-0, 50021-9 ####[facility] LABIA [id number] [place] [address] WBC (Bld) [#/Vol] 5.65 10*3/uL Normal 3.70-11.00 [facility] Comment on above: Order Comment: Speci men Type: BLOOD SPECIMENOrdering Facility: [facility] Address: [address] [place] [address] Performed By: #### 1 4196-0, 38907-8 ####[facility] LABCLIA [id number] [place] [address] Comprehensive metabolic 2000 panelOrdered By: Naida Bruce on 04-18-2025 Albumin [Mass/Vol] 4.2 g/dL 3.9 - 4.9 g/dL [facility] ALP [Catalytic activity/Vol] 157 U/L High 34 - 123 U/L [facility] ALT [Catalytic activity/Vol] 17 U/L 7 - 38 U/L [facility] Anion gap [Moles/Vol] 10 mmol/L 8 - 15 mmol/L [facility] AST [Catalytic activity/Vol] 18 U/L 13 - 35 U/L [facility] Bilirubin [Mass/Vol] 0.8 mg/dL 0.2 - 1 .3 mg/dL [facility] Calcium [Mass/Vol] 10 mg/dL 8.5 - 10. 2 mg/dL [facility] Chloride [Moles/Vol] 102 mmol/L 98 - 10 7 mmol/L [facility] CO2 [Moles/Vol] 28 mmol/L 22 - 30 mmol/L [facility] Creatinine [Mass/Vol] 1.16 mg/dL High 0.58 - 0.96 mg/dL [facility] GFR/1.73 sq M.predicted among non-blacks MDRD (S/P/Bld) [Vol rate/Area] 49 mL/min/{1.73_m2} Low - PINF [facility] Comment on above: Estimated Glomerular Filtration Rate (eGFR) is calculated using the 2020 CKD-EPI creatinine equation. This equation utilizes serum creatinine, sex, and age as parameters. The creatinine assay has traceable calibration to isotope dilution-mass spectrometry. Refer to KDIGO guidelines for clinical interpretation. In patients with unstable renal function, e.g. those with acute kidney injury, the eGFR may not accurately reflect actual GFR. Glucose [Mass/Vol] 154 mg/dL High 74 - 99 mg/dL [facility] Comment on above: The [place] Diabete s Association (ADA) provides guidance for cutoff values [...] Standards of Medical Care in Diabetes 2016, [place] Diabetes Association. Diabetes Care. 2016.39(Suppl 1). Interpretation and review of laboratory results Abnormal [facility] Potassium [Moles/Vol] 4.9 mmol/L 3.7 - 5.1 mmol/L [facility] Protein [Mass/Vol] 6.4 g/dL 6.3 - 8.0 g/dL [facility] Sodium [Moles/Vol] 140 mmol/L 136 - 144 mmol/L [facility] Urea nitrogen [Mass/Vol] 33 mg/dL High 7 - 21 mg/dL [facility] Comprehensive metabolic 2000 panelon 04-18-2025 Albumin [Mass/Vol] 4.2 g/dL Normal 3.9-4.9 [facility] Comment on above: Order Comment: Speci men Type: BLOOD SPECIMEN [facility] Address: [address] [place] [address] Performed By: #### 5 7021-8, 24674-6 #### [facility] CLIA [id number] [address] [place] [address] ALP [Catalytic activity/Vol] 157 U/L High 34-123 [facility] Comment on above: Order Comment: Speci men Type: BLOOD SPECIMEN [facility] Address: [address] [place] [address] Performed By: #### 5 7021-8, 76482-5 #### [facility] CLIA [id number] [address] [place] [address] ALT [Catalytic activity/Vol] 17 U/L Normal 7-38 [facility] Comment on above: Order Comment: Speci men Type: BLOOD SPECIMEN [facility] Address: [address] [place] [address] Performed By: #### 5 7021-8, 37893-2 #### [facility] CLIA [id number] [address] [place] [address] Anion gap [Moles/Vol] 10 mmol/L Normal 8-15 [facility] Comment on above: Order Comment: Speci men Type: BLOOD SPECIMEN [facility] Address: [address] [place] [address] Performed By: #### 5 7021-8, 66888-8 #### [facility] CLIA [id number] [address] [place] [address] AST [Catalytic activity/Vol] 18 U/L Normal 13-35 [facility] Comment on above: Order Comment: Speci men Type: BLOOD SPECIMEN [facility] Address: [address] [place], [place] [address] Performed By: #### 5 7021-8, 20609-9 #### [facility] CLIA [id number] [address] [place] [address] Bilirubin [Mass/Vol] 0.8 mg/dL Normal 0.2-1.3 [facility] Comment on above: Order Comment: Speci men Type: BLOOD SPECIMEN [facility] Address: [address] [place], [place] [address] Performed By: #### 5 7021-8, 87900-0 #### [facility] CLIA [id number] [address] [place] [address] Calcium [Mass/Vol] 10.0 mg/dL Normal 8.5-10.2 [facility] Comment on above: Order Comment: Speci men Type: BLOOD SPECIMEN [facility] Address: [address] [place] [address] Performed By: #### 5 7021-8, 16099-1 #### [facility] CLIA [id number] [address] [place] [address] Chloride [Moles/Vol] 102 mmol/L Normal 98-107 [facility] Comment on above: Order Comment: Speci men Type: BLOOD SPECIMEN [facility] Address: [address] [place] [address] Performed By: #### 5 7021-8, 00987-6 #### [facility] CLIA [id number] [address] [place] [address] CO2 [Moles/Vol] 28 mmol/L Normal 22-30 [facility] Comment on above: Order Comment: Speci men Type: BLOOD SPECIMEN [facility] Address: [address] [place] [address] Performed By: #### 5 7021-8, 75182-0 #### [facility] CLIA [id number] [address] [place] [address] Creatinine [Mass/Vol] 1.16 mg/dL High 0.58-0.96 [facility] Comment on above: Order Comment: Speci men Type: BLOOD SPECIMEN [facility] Address: [address] [place] [id number] Performed By: #### 5 7021-8, 46412-3 #### [facility] CLIA [id number] [address] [place] [address] Creatinine and Glomerular filtration rate.predicted panel (S/P/Bld) 49 mL/min/1.73m??? Low >=60 [facility] Comment on above: Order Comment: Speci men Type: BLOOD SPECIMEN [facility] Address: [address] [place] [address] Result Comment: Maru mated Glomerular Filtration Rate [...] reflect actual GFR. Performed By: #### 5 7021-8, 75156-2 #### [facility] CLIA [id number] [address] [place] [address] Glucose [Mass/Vol] 154 mg/dL High 74-99 [facility] Comment on above: Order Comment: Speci men Type: BLOOD SPECIMEN [facility] Address: [address] [place] [address] Result Comment: The [place] Diabetes Association (ADA) provides guidance for cutoff [...] Standards of Medical Care in Diabetes 2016, [place] Diabetes Association. Diabetes Care. 2016.39(Suppl 1). Performed By: #### 5 7021-8, 28800-3 #### [facility] CLIA [id number] [address] [place] [address] Potassium [Moles/Vol] 4.9 mmol/L Normal 3.7-5.1 [facility] Comment on above: Order Comment: Patricia tarango Type: BLOOD SPECIMEN [facility] Address: [address] [place] [address] Performed By: #### 5 7021-8, 88427-3 #### [facility] CLIA [id number] [address] [place] [address] Protein [Mass/Vol] 6.4 g/dL Normal 6.3-8.0 [facility] Comment on above: Order Comment: Patricia tarango Type: BLOOD SPECIMEN [facility] Address: [address] [place] [address] Performed By: #### 5 7021-8, 11365-9 #### [facility] CLIA [id number] [address] [place] [address] Sodium [Moles/Vol] 140 mmol/L Normal 136-144 [facility] Comment on above: Order Comment: Patricia tarango Type: BLOOD SPECIMEN [facility] Address: [address] [place] [address] Performed By: #### 5 7021-8, 79872-1 #### [facility] CLIA [id number] [address] [place] [address] Urea nitrogen [Mass/Vol] 33 mg/dL High 7-21 [facility] Comment on above: Order Comment: Speci men Type: BLOOD SPECIMEN [facility] Address: [address] [place] [address] Performed By: #### 5 7021-8, 43340-8 #### [facility] CLIA [id number] [address] [place] [address] EPO SerPl-aCncon 04-18-2025 Erythropoietin (EPO) Qn 26.7 mIU/mL High 2.6-18.5 [facility] Comment on above: Order Comment: Speci men Type: BLOOD SPECIMEN [facility] Address: [address] [place] [address] Performed By: #### 5 7021-8, 49001-8 #### [facility] CLIA [id number] [address] [place] [address] FERRITINon 04-18-2025 Ferritin [Mass/Vol] 398 ng/mL High 14.7 - 205.1 ng/mL [facility] FOLATE, SERUMon 04-18-2025 Folate [Mass/Vol] ng/mL 4.7 - PINF ng/mL [facility] Comment on above: A result of > 20 ng/ mL is not necessarily indicative of a pathologic or treatable condition: it reflects a limitation of the test methodology. Assay reference range: 4.8 to 24.2 ng/mL. Suitable for detection of folate deficiency. Reference: Folate III (Folate III) [package insert V 1.0 Icelandic]. [facility], [place], [place]: September 2015. Ferritin SerPl-mCncon 2024 Ferritin [Mass/Vol] 398.0 ng/mL High 14.7-205.1 [facility] Comment on above: Order Comment: Speci men Type: BLOOD SPECIMENOrdering Facility: [facility] Address: [address] [place], [place] [address] Performed By: #### 5 0190-8, 2276-4, 4542-7, 3016-3 ####[facility] LABCLIA [id number] [place] [address] [place] Ferritin [Mass/Vol]on 2024 Interpretation and review of laboratory results Abnormal [facility] Folate SerPl-mCncon 04-18-20 25 Folate [Mass/Vol] ng/mL Normal >4.7 [facility] Comment on above: Order Comment: Speci men Type: BLOOD SPECIMENOrdering Facility: [facility] Address: [address] [place] [address] Result Comment: A re sult of > 20 ng/mL is not necessarily indicative of a pathologic or treatable condition: it reflects a limitation of the test methodology. Assay reference range: 4.8 to 24.2 ng/mL. Suitable for detection of folate deficiency. Reference: Folate III (Folate III) [package insert V 1.0 Icelandic]. [employer], [place], [place]: September 2015. Performed By: #### 2 132-9, 2284-8, 2885-2 ####[facility] LABCLIA [id number] [place] [address] [place] HAPTOGLOBINon 04-18-2025 Haptoglobin [Mass/Vol] 155 mg/dL 31 - 238 mg/dL [facility] Haptoglob SerPl-mCncon 04-18 Haptoglobin [Mass/Vol] 155 mg/dL Normal 31-238 [facility] Comment on above: Order Comment: Speci men Type: BLOOD SPECIMENOrdering Facility: [facility] Address: [address] [place] [address] Performed By: #### 5 0190-8, 2276-4, 4542-7, 3016-3 ####[facility] LABCLIA [id number] [address] [place] IMMUNOFIXATION SCREEN, SERUM on 04-18-2025 MPA RESULT No M protein is identified. Normal No M protein is identified. [facility] Comment on above: Order Comment: Speci men Type: BLOOD SPECIMEN [facility] Address: [address] [place] [address] Performed By: #### 5 7021-8, 03021-8 #### [facility] CLIA [id number] [address] [place] [address] STAFF REVIEW ([facility]) Reviewed by Mo burrows MD, Ph.D ([id number]) Normal [facility] Comment on above: Order Comment: Speci men Type: BLOOD SPECIMEN [facility] Address: [address] [place] [address] Performed By: #### 5 7021-8, 53731-2 #### [facility] CLIA [id number] [address] [place], [place] [address] IMMUNOGLOBULINS,IGG,IGA,IGMo n 04-18-2025 IgA [Mass/Vol] 48 mg/dL Low 70-400 [facility] Comment on above: Order Comment: Speci men Type: BLOOD SPECIMEN [facility] Address: [address] [place] [address] Performed By: #### S ERIMM #### [facility] CLIA [id number] [address] [place] [address] [place] IgG [Mass/Vol] 682 mg/dL Low 700-1600 [facility] Comment on above: Order Comment: Speci men Type: BLOOD SPECIMEN [facility] Address: [address] [place] [address] Performed By: #### S ERIMM #### [facility] CLIA [id number] [address] [place] [address] [place] IgM [Mass/Vol] 42 mg/dL Normal 40-230 [facility] Comment on above: Order Comment: Speci men Type: BLOOD SPECIMEN [facility] Address: [address] [place] [address] Performed By: #### S ERIMM #### [facility] CLIA [id number] [address] [place] [address] [place] Iron and Iron binding capaci ty panelon 04-18-2025 Iron [Mass/Vol] 73 ug/dL 41 - 186 ug/dL [facility] Iron binding capacity [Mass/Vol] 336 ug/dL 232 - 386 ug/dL [facility] Iron/TIBC [Molar ratio] 21.7 % 15.0 - 57.0 % [facility] Iron [Mass/Vol] 73 ug/dL Normal 41-186 [facility] Comment on above: Order Comment: Speci men Type: BLOOD SPECIMENOrdering Facility: [facility] Address: [address] [place] [address] Performed By: #### 5 0190-8, 2276-4, 4542-7, 3016-3 ####[facility] LABIA [id number] [place] [address] [place] [facility] Iron binding capacity [Mass/Vol] 336 ug/dL Normal 232-386 [facility] Comment on above: Order Comment: Speci men Type: BLOOD SPECIMENOrdering Facility: [facility] Address: [address] [place] [address] Performed By: #### 5 0190-8, 2276-4, 4542-7, 3016-3 ####[facility] LABIA [id number] [place] [address] [place] Iron/TIBC [Molar ratio] 21.7 % Normal 15.0-57.0 [facility] Comment on above: Order Comment: Speci men Type: BLOOD SPECIMENOrdering Facility: [facility] Address: [address] [place] [address] Performed By: #### 5 0190-8, 2276-4, 4542-7, 3016-3 ####[facility] LABIA [id number] [place] [address] [place] KAPPA/SAMANIEGO,FREE,SERon 2024 Immunoglobulin light chains.kappa.free (S) [Mass/Vol] 28.2 mg/L High 3.3-19.4 [facility] Comment on above: Order Comment: Speci men Type: BLOOD SPECIMEN [facility] Facility: [facility] Address: [address] [place] [address] Result Comment: Rare ly, increased serum free light chains levels may not be detected or accurately quantified due to prozone phenomenon or in high viscosity samples using this immunoturbidimetric assay. Correlation with other laboratory results and clinical findings is recommended. The [place] Free Light Chain was performed using the Binding Site Optilite immunoturbidimetric method. Result obtained with different assay methods or kits cannot be used interchangeably. Performed By: #### 5 7021-8, 33682-0 #### [facility] CLIA [id number] [address] [place] [address] Immunoglobulin light chains.kappa/Immunogl obulin light chains.lambda (S) [Mass ratio] 1.16 Normal 0.26-1.65 [facility] Comment on above: Order Comment: Speci men Type: BLOOD SPECIMEN [facility] Facility: [facility] Address: [address] [place] [address] Performed By: #### 5 7021-8, 73967-7 #### [facility] CLIA [id number] [address] [place] [address] Immunoglobulin light chains.lambda.free [Mass/Vol] 24.4 mg/L Normal 5.7-26.3 [facility] Comment on above: Order Comment: Speci men Type: BLOOD SPECIMEN [facility]ing Facility: [facility] Address: [address] [place] [address] Result Comment: Rare ly, increased serum free light chains levels may not be detected or accurately quantified due to prozone phenomenon or in high viscosity samples using this immunoturbidimetric assay. Correlation with other laboratory results and clinical findings is recommended. The [place] Free Light Chain was performed using the Binding Site Optilite immunoturbidimetric method. Result obtained with different assay methods or kits cannot be used interchangeably. Performed By: #### 5 7021-8, 13428-3 #### [facility] [facility] CLIA [id number] [address] [place] [address] 26753 LACTATE DEHYDROGENASEon 06-0 -2024 LDH [Catalytic activity/Vol] 236 U/L High 135 - 214 U/L [facility] LDH SerPl-cCncon 04-18-2025 LDH [Catalytic activity/Vol] 236 U/L High 135-214 [facility] Comment on above: Order Comment: Speci men Type: BLOOD SPECIMEN Ordering Facility: [facility] Address: [address] [place] [address] Performed By: #### 5 7021-8, 40565-5 #### [facility] CLIA [id number] [address] [place], [place] [address] LDH [Catalytic activity/Vol] on 04-18-2025 Interpretation and review of laboratory results Abnormal [facility] [place] No Panel Informationon 04-18 [facility] Interpretation and review of laboratory results Normal [facility] Interpretation and review of laboratory results Normal [facility] Interpretation and review of laboratory results Abnormal [facility] PROTEIN ELECTROPHORESIS SERU M (P)on 04-18-2025 Albumin [Mass/Vol] 3.85 g/dL Normal 3.43-5.41 [facility] Comment on above: Order Comment: Speci men Type: BLOOD SPECIMENOrdering Facility: [facility] Address: [address] [place] [address] Performed By: #### L [id number] ####[facility] [id number] [place] [address] [place] Alpha 1 globulin Elph [Mass/Vol] 0.37 g/dL Normal 0.18-0.43 [facility] Comment on above: Order Comment: Speci men Type: BLOOD SPECIMENOrdering Facility: [facility] Address: [address] [place] [address] Performed By: #### L [id number] ####[facility]CLIA [id number] [place] [address] [place] Alpha 2 globulin Elph [Mass/Vol] 0.78 g/dL Normal 0.42-0.98 [facility] Comment on above: Order Comment: Speci men Type: BLOOD SPECIMENOrdering Facility: [facility] Address: [address] [place] [address] Performed By: #### L [id number] ####[facility] LABCLIA [id number] [place] [address] [place] Beta globulin Elph [Mass/Vol] 0.67 g/dL Normal 0.61-1.17 [facility] Comment on above: Order Comment: Speci men Type: BLOOD SPECIMENOrdering Facility: [facility] Address: [address] [place] [address] Performed By: #### L [id number] ####[facility]CLIA [id number] [place] [address] [place] Gamma globulin Elph [Mass/Vol] 0.54 g/dL Normal 0.53-1.51 [facility] Comment on above: Order Comment: Speci men Type: BLOOD SPECIMENOrdering Facility: [facility] Address: [address] [place] [address] Performed By: #### L [id number] ####[facility] LABIA [id number] [place] [address] [place] M-PROTEIN LOCATION Normal [facility] Comment on above: Order Comment: Speci men Type: BLOOD SPECIMENOrdering Facility: [facility] Address: [address] [place] [address] Result Comment: Not Applicable. Performed By: #### L [id number] ####[facility] LABCLIA [id number] [address] [address] [place] Protein Fractions [Interp] No definitive M protein is identified on protein electrophoresis. Normal No definitive M protein is identified on protein electrophor esis. [facility] Comment on above: Order Comment: Speci men Type: BLOOD SPECIMENOrdering Facility: [facility] Address: [address] [place] [address] Performed By: #### L [id number] ####[facility] LABCLIA [id number] [address] [place] Protein.monoclonal Elph [Mass/Vol] 0.00 g/dL Normal <=0.00 [facility] Comment on above: Order Comment: Speci men Type: BLOOD SPECIMENOrdering Facility: [facility] Address: [address] [place] [address] Performed By: #### L [id number] ####[facility] [id number] [place] [address] [place] SPE STAFF REVIEW Reviewed by Mo burrows MD, Ph.D ([id number]) Normal [facility] Comment on above: Order Comment: Speci men Type: BLOOD SPECIMENOrdering Facility: [facility] Address: [address] [place] [address] Performed By: #### L [id number] ####[facility] [id number] [place] [address] [place] Prot SerPl-mCncon 04-18-2025 Protein [Mass/Vol] 6.2 g/dL Low 6.3-8.0 [facility] Comment on above: Order Comment: Speci men Type: BLOOD SPECIMENOrdering Facility: [facility] Address: [address] [place] [address] Performed By: #### 2 132-9, 2284-8, 2885-2 ####[facility] [id number] [place] [address] [place] RETICULOCYTE COUNTon 025 Reticulocytes (Bld) [#/Vol] 0.154 10*3/uL High [facility] Retics #on 04-18-2025 Reticulocytes (Bld) [#/Vol] 0.33543 10*3/uL High 0.018-0.100 [facility] Comment on above: Order Comment: Speci men Type: BLOOD SPECIMENOrdering Facility: [facility] Address: [address] [place] [address] Performed By: #### 1 4196-0, 09284-4 ####[facility]CLIA [id number] [place] [address] Reticulocytes (Bld) [#/Vol]o n 04-18-2025 Reticulocytes/100 RBC (Bld) 4.1 % High 0.4 - 2.0 % [facility] Reticulocytes/100 RBC (Bld) 4.1 % High 0.4-2.0 [facility] Comment on above: Order Comment: Speci men Type: BLOOD SPECIMENOrdering Facility: [facility] Address: [address] [place] [address] Performed By: #### 1 4196-0, 81198-3 ####[facility]IA [id number] [place] [address] THYROID STIMULATING HORMONEo n 04-18-2025 TSH Qn 1.25 m[IU]/L [facility] TSH Qnon 04-18-2025 Interpretation and review of laboratory results Normal [facility] TSH SerPl-aCncon 04-18-2025 TSH Qn 1.250 m[IU]/L Normal 0.270-4.200 [facility] Comment on above: Order Comment: Speci men Type: BLOOD SPECIMENOrdering Facility: [facility] Address: [address] [place] [address] Performed By: #### 5 0190-8, 2276-4, 4542-7, 3016-3 ####[facility] LABCLIA [id number] [place] [address] [place] VITAMIN B12on 04-18-2025 Cobalamin (Vitamin B12) [Mass/Vol] 854 pg/mL 232 - 1245 pg/mL [facility] Vit B12 SerPl-mCncon 025 Cobalamin (Vitamin B12) [Mass/Vol] 854 pg/mL Normal 232-1245 [facility] Comment on above: Order Comment: Speci men Type: BLOOD SPECIMENOrdering Facility: [facility] Address: [address] [place] [address] Performed By: #### 2 132-9, 2284-8, 2885-2 ####[facility] LABCLIA [id number] [address] [place] CBC W Auto Differential pane l (Bld)on 04-07-2025 Basophils (Bld) [#/Vol] 10*3/uL Normal <0.11 [facility] Comment on above: Order Comment: Speci men Type: BLOOD SPECIMEN Ordering Facility: [facility] Address: [address] [place] [address] Performed By: #### 5 7021-8, 32248-9 #### [facility] CLIA [id number] [address] [place] [address] 76016 Basophils/100 WBC (Bld) 0.2 % Normal [facility] Comment on above: Order Comment: Speci men Type: BLOOD SPECIMEN Ordering Facility: [facility] Address: [address] [place] [address] Performed By: #### 5 7021-8, 32126-9 #### [facility] CLIA [id number] [address] [place] [address] 82947 Differential cell count method Nom (Bld) Auto Normal [facility] Comment on above: Order Comment: Speci men Type: BLOOD SPECIMEN Ordering Facility: [facility] Address: [address] [place] [address] Performed By: #### 5 7021-8, 75887-4 #### [facility] CLIA [id number] [address] [place] [address] 61254 Eosinophils (Bld) [#/Vol] 0.12 10*3/uL Normal <0.46 [facility] Comment on above: Order Comment: Speci men Type: BLOOD SPECIMEN Ordering Facility: [facility] Address: [address] [place] [address] Performed By: #### 5 7021-8, 81772-1 #### [facility] CLIA [id number] [address] [place] [address] 52499 Eosinophils/100 WBC (Bld) 2.3 % Normal [facility] Comment on above: Order Comment: Speci men Type: BLOOD SPECIMEN Ordering Facility: [facility] Address: [address] [place] [address] Performed By: #### 5 7021-8, 89396-7 #### [facility] CLIA [id number] [address] [place] [address] 41398 Erythrocyte distribution width (RBC) [Ratio] 16.1 % High 11.5-15.0 [facility] Comment on above: Order Comment: Speci men Type: BLOOD SPECIMEN Ordering Facility: [facility] Address: [address] [place] [address] Performed By: #### 5 7021-8, 70498-4 #### [facility] CLIA [id number] [address] [place] [address] 33084 Hematocrit (Bld) [Volume fraction] 30.4 % Low 36.0-46.0 [facility] Comment on above: Order Comment: Speci men Type: BLOOD SPECIMEN Ordering Facility: [facility] Address: [address] [place] [address] Performed By: #### 5 7021-8, 73406-8 #### [facility] CLIA [id number] [address] [place] [address] 34938 Hemoglobin (Bld) [Mass/Vol] 10.2 g/dL Low 11.5-15.5 [facility] Comment on above: Order Comment: Speci men Type: BLOOD SPECIMEN Ordering Facility: [facility] Address: [address] [place] [address] Performed By: #### 5 7021-8, 69680-0 #### [facility] CLIA [id number] [address] [place] [address] 96228 Immature granulocytes (Bld) [#/Vol] 10*3/uL Normal <0.10 [facility] Comment on above: Order Comment: Speci men Type: BLOOD SPECIMEN Ordering Facility: [facility] Address: [address] [place] [address] [place] [address] Performed By: #### 5 7021-8, 64156-1 #### [facility] CLIA [id number] [address] [place] [address] 33157 Immature granulocytes/100 WBC (Bld) 0.4 % Normal [facility] Comment on above: Order Comment: Speci men Type: BLOOD SPECIMEN Ordering Facility: [facility] Address: [facility] [place] [address] Performed By: #### 5 7021-8, 64246-1 #### [facility] CLIA [id number] [address] [place] [address] 78267 Lymphocytes (Bld) [#/Vol] 1.31 10*3/uL Normal 1.00-4.00 [facility] Comment on above: Order Comment: Speci men Type: BLOOD SPECIMEN Ordering Facility: [facility] Address: [address] [place] [address] Performed By: #### 5 7021-8, 91671-7 #### [facility] CLIA [id number] [address] [place] [address] 92285 Lymphocytes/100 WBC (Bld) 24.8 % Normal [facility] Comment on above: Order Comment: Speci men Type: BLOOD SPECIMEN Ordering Facility: [facility] Address: [address] [place] [address] Performed By: #### 5 7021-8, 40607-2 #### [facility] CLIA [id number] [address] [place] [address] 29050 MCH (RBC) [Entitic mass] 29.6 pg Normal 26.0-34.0 [facility] Comment on above: Order Comment: Speci men Type: BLOOD SPECIMEN Ordering Facility: [facility] Address: [address] [place] [address] Performed By: #### 5 7021-8, 62722-7 #### [facility] CLIA [id number] [address] [place] [address] 63288 MCHC (RBC) [Mass/Vol] 33.6 g/dL Normal 30.5-36.0 [facility] Comment on above: Order Comment: Speci men Type: BLOOD SPECIMEN Ordering Facility: [facility] Address: [address] [place] [address] Performed By: #### 5 7021-8, 60986-5 #### [facility] CLIA [id number] [address] [place] [address] 02396 MCV (RBC) [Entitic vol] 88.1 fL Normal 80.0-100.0 [facility] Comment on above: Order Comment: Speci men Type: BLOOD SPECIMEN Ordering Facility: [facility] Address: [address] [place] [address] Performed By: #### 5 7021-8, 61551-9 #### [facility] CLIA [id number] [address] [place] [address] 32114 Monocytes (Bld) [#/Vol] 0.28 10*3/uL Normal <0.87 [facility] Comment on above: Order Comment: Speci men Type: BLOOD SPECIMEN Ordering Facility: [facility] Address: [address] [place] [address] Performed By: #### 5 7021-8, 21732-4 #### [facility] CLIA [id number] [address] [place] [address] 82111 Monocytes/100 WBC (Bld) 5.3 % Normal [facility] Comment on above: Order Comment: Speci men Type: BLOOD SPECIMEN Ordering Facility: [facility] Address: [address] [place] [address] Performed By: #### 5 7021-8, 70159-9 #### [facility] CLIA [id number] [address] [place] [address] 50314 Neutrophils (Bld) [#/Vol] 3.54 10*3/uL Normal 1.45-7.50 [facility] Comment on above: Order Comment: Speci men Type: BLOOD SPECIMEN Ordering Facility: [facility] Address: [address] [place] [address], [place] [address] Performed By: #### 5 7021-8, 17601-5 #### [facility] CLIA [id number] [address] [place] [address] 59177 Neutrophils/100 WBC (Bld) 67.0 % Normal [facility] Comment on above: Order Comment: Speci men Type: BLOOD SPECIMEN Ordering Facility: [facility] Address: [address] [place] [address] Performed By: #### 5 7021-8, 94089-2 #### [facility] CLIA [id number] [address] [place] [address] 08024 Nucleated RBC (Bld) [#/Vol] 10*3/uL Normal <0.01 [facility] Comment on above: Order Comment: Speci men Type: BLOOD SPECIMEN Ordering Facility: [facility] Address: [address] [place] [address] Performed By: #### 5 7021-8, 96025-3 #### [facility] CLIA [id number] [address] [place] [address] 35381 Nucleated RBC/100 WBC (Bld) [Ratio] 0.0 /100 WBC Normal [facility] Comment on above: Order Comment: Speci men Type: BLOOD SPECIMEN Ordering Facility: [facility] Address: [address] [place] [address] Performed By: #### 5 7021-8, 91178-5 #### [facility] CLIA [id number] [address] [place] [address] 69866 Platelet mean volume (Bld) [Entitic vol] 9.1 fL Normal 9.0-12.7 [facility] Comment on above: Order Comment: Speci men Type: BLOOD SPECIMEN Ordering Facility: [facility] Address: [address] [place] [address] Performed By: #### 5 7021-8, 84589-6 #### [facility] CLIA [id number] [address] [place] [address] 00596 Platelets (Bld) [#/Vol] 136 10*3/uL Low 150-400 [facility] Comment on above: Order Comment: Speci men Type: BLOOD SPECIMEN Ordering Facility: [facility] Address: [address] [place], [place] [address] Performed By: #### 5 7021-8, 32462-5 #### [facility] CLIA [id number] [address] [place] [address] 52474 RBC (Bld) [#/Vol] 3.45 10*6/uL Low 3.90-5.20 [facility] Comment on above: Order Comment: Speci men Type: BLOOD SPECIMEN Ordering Facility: [facility] Address: [address] [place] [address] Performed By: #### 5 7021-8, 68331-0 #### [facility] CLIA [id number] [address] [place], [place] [address] WBC (Bld) [#/Vol] 5.28 10*3/uL Normal 3.70-11.00 [facility] Comment on above: Order Comment: Speci men Type: BLOOD SPECIMEN Ordering Facility: [facility] Address: [address] [place] [address] Performed By: #### 5 7021-8, 75653-2 #### [facility] CLIA [id number] [address] [place] [address] 96816 CNOVSPon 04-07-2025 OVS Visit (SP) Office ( [place]) ANH TEJEDA ([id number]) 1950 F Date Time Provider Department 04/07/25 2:00 PM DAKSHA BRIDGES During your visit today, we recorded the following information about you: Temperature Pulse Respiration Blood pressure 97 degrees 74/minute 18/minute 130/69 Weight Height 101.1 kg 1.58 m Daksha Bridges PA-C 04/07/2025 2:52 PM Signed Hematology Progress Note PATIENT NAME: Anh Tejeda CLINIC NO.: [id number] ATTENDING PHYSICIAN: Henry Walker MD DATE OF SERVICE: 01/06/2025 This note was copied from prior heme/onc encounter from 07/15/2024. The patient's medications, allergies, past medical/surgical hx, family hx, ROS, and physical exam have all been reviewed and updated as appropriate. The interval history and assessment/plan content [...] rash. HEMATOLOGY/LYMPHOLOGY Negative for prolonged bleeding, bruising (more content not included)... Normal [facility] Comprehensive metabolic 2000 panelon 04-07-2025 Albumin [Mass/Vol] 4.0 g/dL Normal 3.9-4.9 [facility] Comment on above: Order Comment: Speci men Type: BLOOD SPECIMEN Ordering Facility: [facility] Address: [address] [place] [address] Performed By: #### 5 7021-8, 31471-6 #### [facility] CLIA [id number] [address] [place] [address] 70208 ALP [Catalytic activity/Vol] 141 U/L High 34-123 [facility] Comment on above: Order Comment: Speci men Type: BLOOD SPECIMEN Ordering Facility: [facility] Address: [address] [place] [address] Performed By: #### 5 7021-8, 51857-8 #### [facility] CLIA [id number] [address] [place] [address] 19254 ALT [Catalytic activity/Vol] 15 U/L Normal 7-38 [facility] Comment on above: Order Comment: Speci men Type: BLOOD SPECIMEN Ordering Facility: [facility] Address: [address] [place] [id number] Performed By: #### 5 7021-8, 92958-1 #### [facility] CLIA [id number] [address] [place] [address] 53479 Anion gap [Moles/Vol] 10 mmol/L Normal 8-15 [facility] Comment on above: Order Comment: Speci men Type: BLOOD SPECIMEN Ordering Facility: [facility] Address: [address] [place] [address] Performed By: #### 5 7021-8, 12532-8 #### [facility] CLIA [id number] [address] [place] [address] AST [Catalytic activity/Vol] 17 U/L Normal 13-35 [facility] Comment on above: Order Comment: Speci men Type: BLOOD SPECIMEN Ordering Facility: [facility] Address: [address] [place] [address] Performed By: #### 5 7021-8, 86922-0 #### [facility] CLIA [id number] [address] [place] [address] 86907 Bilirubin [Mass/Vol] 0.7 mg/dL Normal 0.2-1.3 [facility] Comment on above: Order Comment: Speci men Type: BLOOD SPECIMEN Ordering Facility: [facility] Address: [address] [place] [address]164 Performed By: #### 5 7021-8, 34928-6 #### [facility] CLIA [id number] [address] [place] [address] 41633 Calcium [Mass/Vol] 9.3 mg/dL Normal 8.5-10.2 [facility] Comment on above: Order Comment: Speci men Type: BLOOD SPECIMEN Ordering Facility: [facility] Address: [address] [place] [address] 12379 Performed By: #### 5 7021-8, 99788-1 #### [facility] CLIA [id number] [address] [place] [address] 32008 Chloride [Moles/Vol] 105 mmol/L Normal 98-107 [facility] Comment on above: Order Comment: Speci men Type: BLOOD SPECIMEN Ordering Facility: [facility] Address: [address] [place] [address] 16489 Performed By: #### 5 7021-8, 99861-0 #### [facility] CLIA [id number] [address] [place] [address] 50670 CO2 [Moles/Vol] 26 mmol/L Normal 22-30 [facility] Comment on above: Order Comment: Speci men Type: BLOOD SPECIMEN Ordering Facility: [facility] Address: [facility] [place][note 2] [place] [address] Performed By: #### 5 7021-8, 08987-4 #### [facility] CLIA [id number] [address] [place] [address] 96138 Creatinine [Mass/Vol] 1.16 mg/dL High 0.58-0.96 [facility] Comment on above: Order Comment: Patricia tarango Type: BLOOD SPECIMEN Ordering Facility: [facility] Address: [address] [place] [id number] Performed By: #### 5 7021-8, 57635-7 #### [facility] CLIA [id number] [address] [place] [address] 28125 Creatinine and Glomerular filtration rate.predicted panel (S/P/Bld) 49 mL/min/1.73m??? Low >=60 [facility] Comment on above: Order Comment: Patricia tarango Type: BLOOD SPECIMEN Ordering Facility: [facility] Address: [address] [place] [address] Result Comment: Maru mated Glomerular Filtration Rate [...] reflect actual GFR. Performed By: #### 5 7021-8, 89378-0 #### [facility] CLIA [id number] [address] [place] [address] 28118 Glucose [Mass/Vol] 186 mg/dL High 74-99 [facility] Comment on above: Order Comment: Patricia tarango Type: BLOOD SPECIMEN Ordering Facility: [facility] Address: [address] [place], [place] [address] Result Comment: The [place] [employer] (ADA) provides guidance for cutoff [...] Standards of Medical Care in Diabetes 2016, [place] [employer]. Diabetes Care. 2016.39(Suppl 1). Performed By: #### 5 7021-8, 33810-0 #### [facility] CLIA [id number] [address] [place] [address] Potassium [Moles/Vol] 5.0 mmol/L Normal 3.7-5.1 [facility] Comment on above: Order Comment: Speci men Type: BLOOD SPECIMEN Ordering Facility: [facility] Address: [address] [place] [address] Performed By: #### 5 7021-8, 05404-1 #### [facility] CLIA [id number] [address] [place] [address] 10337 Protein [Mass/Vol] 6.0 g/dL Low 6.3-8.0 [facility] Comment on above: Order Comment: Speci men Type: BLOOD SPECIMEN Ordering Facility: [facility] Address: [address] [place] [address] Performed By: #### 5 7021-8, 27316-1 #### [facility] CLIA [id number] [address] [place] [address] 50809 Sodium [Moles/Vol] 141 mmol/L Normal 136-144 [facility] Comment on above: Order Comment: Speci men Type: BLOOD SPECIMEN Ordering Facility: [facility] Address: [address] [place] [address] Performed By: #### 5 7021-8, 13658-5 #### [facility] CLIA [id number] [address] [place] [address] Urea nitrogen [Mass/Vol] 41 mg/dL High 7-21 [facility] Comment on above: Order Comment: Speci men Type: BLOOD SPECIMEN Ordering Facility: [facility] Address: [address] [place] [address] Performed By: #### 5 7021-8, 30051-1 #### [facility] CLIA [id number] [address] [place] [address] 16533 Ferritin SerPl-ncon 2024 Ferritin [Mass/Vol] 363.0 ng/mL High 14.7-205.1 [facility] Comment on above: Order Comment: Speci men Type: BLOOD SPECIMEN Ordering Facility: [facility] Address: [address] [place] [address] Performed By: #### 5 7021-8, 73301-5 #### [facility] CLIA [id number] [address] [place] [address] 71117 [employer] capaci panelon 04-07-2025 Iron [Mass/Vol] 81 ug/dL Normal 41-186 [facility] Comment on above: Order Comment: Speci men Type: BLOOD SPECIMEN Ordering Facility: [facility] Address: [address] [place] [address] Performed By: #### 5 7021-8, 71535-3 #### [facility] CLIA [id number] [address] [place] [address] 39565 Iron binding capacity [Mass/Vol] 342 ug/dL Normal 232-386 [facility] Comment on above: Order Comment: Speci men Type: BLOOD SPECIMEN Ordering Facility: [facility] Address: [address] [place] [address] Performed By: #### 5 7021-8, 62010-9 #### [facility] CLIA [id number] [address] [place] [address] 25467 Iron/TIBC [Molar ratio] 23.7 % Normal 15.0-57.0 [facility] Comment on above: Order Comment: Speci men Type: BLOOD SPECIMEN Ordering Facility: [facility] Address: [address] [place] [address] Performed By: #### 5 7021-8, 00002-8 #### [facility] CLIA [id number] [address] [place] [address] 28063 Retics #on 04-07-2025 Reticulocytes (Bld) [#/Vol] 0.66617 10*3/uL High 0.018-0.100 [facility] Comment on above: Order Comment: Speci men Type: BLOOD SPECIMEN Ordering Facility: [facility] Address: [address] [place], [place] [id number] Performed By: #### 5 7021-8, 52249-4 #### [facility] CLIA [id number] [address] [place] [address] 83407 Reticulocytes (Bld) [#/Vol]o n 04-07-2025 Reticulocytes/100 RBC (Bld) 3.8 % High 0.4-2.0 [facility] Comment on above: Order Comment: Speci men Type: BLOOD SPECIMEN Ordering Facility: [facility] Address: [address] [place], [place] [id number] Performed By: #### 5 7021-8, 19075-3 #### [facility] IA [id number] [address] [place] [address] 10696 Ambulatory Visit Summaryon 0 03-30-2025 Ambulatory Visit Summary Ambulatory Visit Summary ANH TEJEDA :1950 Visit Date:03/30/2025 Ambulatory Visit Instructions Your Diagnosis Liver fibrosis Weight loss Anemia Chronic GERD Metabolic syndrome Your Care Team Attending Physician - Shanel DONG, Verónica Finch Primary Care Physician - VINAY MATTA DO This Is Your Medications List Contact prescribing physician if questions or concerns Non-Formulary Medication (Magnesium) allopurinol (allopurinol 100 mg Tab) ascorbic acid (ascorbic acid 500 mg Tab) aspirin (aspirin 81 mg Oral EC Tab) atenolol (atenolol 50 mg Tab) atorvastatin (atorvastatin 20 mg Tab) baclofen (baclofen 10 mg Tab) calcium carbonate-magnesium carbonate (MagneBind 300 oral tablet) cholecalciferol (cholecalciferol 1000 intl units oral tablet) cyanocobalamin (Vitamin B12) gabapentin (gabapentin 300 mg Cap) glimepiride (glimepiride 2 mg Tab) hydrochlorothiazide-lisinop ril (hydrochlorothiazide-lisino pril 12.5 mg-20 mg Tab) loratadine (Claritin) omeprazole (omeprazole 20 mg Cap-DR) pioglitazone (pioglitazone 15 mg Tab) resmetirom (Rezdiffra 80 mg oral tablet) ropinirole (ropinirole 0.5 mg Tab) sitagliptin (Januvia 50 mg Tab) Procedures Performed Carpal tunnel (02/29/2024), Colonoscopy (06/12/2022), Esophagogastroduodenoscopy (06/12/2022), Scar management. Discharge Vitals Heart Rate (Peripheral) 67 Blood Pressure 119/73 Height 160 cm Height 63 in Weight 100.6 kg Weight 221.785 lb BMI 39.3 Medications What How Much When Instructions Unchanged [...] prescribing physician if questions or concerns Unchanged baclofen (baclofen 10 mg Tab) Contact prescribing physician if questions [...] prescribing physician if questions or concerns Unchanged loratadine (Claritin) Every day Takes due too itching from Rezdiffra Contact prescribing physician if questions or concerns Unchanged Non-Formulary Medication (Magnesium) Contact prescribing physician if questions or concerns Unchanged omeprazole (omeprazole 20 mg Timothy-) Contact prescribing physician if questions or concerns Unchanged pioglitazone (pioglitazone 15 mg Tab) Contact prescribing physician if questions or concerns Unchanged resmetirom (Rezdiffra 80 mg oral tablet) Contact prescribing physician if questions or concerns [...] Hemorrhoids History of rectal polyps Hyperlipidemia Hyperlipidemia Itching Liver fibrosis Low magnesium level Metabolic syndrome Nausea Obesity due to excess calories Polyneuropathy Rectal polyp Restless legs Type 2 diabetes mellitus without complication Weight loss Historical - Any problem that you are no longer receiving treatment for. Elevated alkaline phosphatase level Patient Survey You may receive a survey via text or e-mail asking about your office visit. Please share your experience with us by completing your survey. We appreciate your feedback and thank you for choosing us for your care. Normal [facility] Gastroenterology Office/Clin ic Noteon 03-30-2025 Gastroenterology Office/Clinic Note Gastroenterology Office/Clinic Note Chief Complaint Review lab results and discuss scheduling Fibroscan HPI Staff EST, 74 year old female who presents today to review lab results and discuss scheduling Fibroscan. Patient was advised at last visit to start Benedryl due to itching from Rezdiffra. No improvement. Insurance suggested Claritin and itching improved. Last visit w/ Dr Ugarte History of Present Illness PT took Rezdiffra and it gave her itching Since MAy started after few tablets tried itching creams Assessment/Plan 1. Liver fibrosis (K74.00: Hepatic fibrosis, unspecified) 2. Weight loss (R63.4: Abnormal weight loss) 3. Anemia (D64.9: Anemia, unspecified) 4. Chronic GERD (K21.9: Gastro-esophageal reflux disease without esophagitis) 5. Diabetes (E11.9: Type 2 diabetes mellitus without complications) 6. Metabolic syndrome (E88.810: Metabolic syndrome) 7. Obesity due to excess calories (E66.09: Other obesity due to excess calories) 8. Itching (L29.9: Pruritus, unspecified) Stop Rezdiffra Start Benadryl 25 mg every 8 hours as needed for itching Advised to lose 10% of current weight if possible. Patient is to discuss with PCP if she benefits from starting medications to lose weight since she is close to get liver cirrhosis if she does not lose weight Continue to drink 2 to 3 cups of medium roast coffee every day EGD/Colonoscopy 06/12/22 w/Dr. Russell: Impression and Plan Multiple fundus gastric polyps, 5-10 mm each, biopsied Impression and Plan 1. Sessile polyp, 3 mm, in the rectum, removed completely with cold snare 2. Moderate diverticulosis in the sigmoid and descending colon 3. Moderate nonbleeding internal hemorrhoids Recommendations: Repeat colonoscopy:: Pending pathology results, 7 yrs. Pathology: Final Diagnosis (Verified) A: POLYP, GASTRIC, POLYPECTOMY: ??? FUNDIC GLAND POLYP. 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 GES 01/08/23: IMPRESSION: GASTRIC EMPTYING IS WITHIN NORMAL LIMITS. Technical Comments Dose (mCi Tc99m Sulfur Colloid): [...] 32 4.0 hr (Upper Limit 10%) 8 US abd 02/03/23: IMPRESSION: FINDINGS SUGGESTING DIFFUSE FATTY INFILTRATION OF LIVER. PREVIOUS CHOLECYSTECTOMY. US liver 01/28/24: IMPRESSION: THE COMMON BILE DUCT IS SLIGHTLY LARGER THAN THE PRIOR STUDY AND LIVER IS ALSO SLIGHTLY LARGER THAN ON THE PRIOR ULTRASOUND. RECOMMEND CLOSE CORRELATION WITH LIVER FUNCTION STUDIES AND MAY CONSIDER CT OR MRI IMAGING. FibroScan 05/04/23: E 11.5 CAP 260 F3 Moderate steatosis Laboratory Results CBC CMP PT PTT Basophil Absolute: 0 E9/L (03/27/25) A/G Ratio: 1.7 (03/27/25) INR: 1.05 (03/27/25) PTT: 35.5 second(s) (03/27/25) Basophil Auto: 0.4 % (03/27/25) AGAP: 12 mEq/L (03/27/25) PT: 11.8 second(s) (03/27/25) Eos Absolute: 0.1 E9/L (03/27/25) Albumin Lvl: 4 gm/dL (03/27/25) Eos Auto: 1.9 % (03/27/25) Alk Phos: 133 Int._Unit/L High (03/27/25) Hct: 32.7 % Low (03/27/25) ALT: 20 Int._Unit/L (03/27/25) HGB: 11.4 gm/dL Low (03/27/25) AST: 17 Int._Unit/L (03/27/25) Lymph Absolute: 1.4 E9/L (03/27/25) Bili Total: 0.6 mg/dL (03/27/25) Lymph Auto: 28.3 % (03/27/25) BUN: 36 mg/dL High (03/27/25) MCH: 29.5 pg (03/27/25) BUN/Creat Ratio: 30 High (03/27/25) MCHC: 34.9 gm/dL (03/27/25) Calcium Lvl: 9 mg/dL (03/27/25) MCV: 84.5 fL (03/27/25) Chloride: 104 mmol/L (03/27/25) [place] Absolute: 0.3 E9/L (03/27/25) CO2: 28 mmol/L (03/27/25) [place] Auto: 6.4 % (03/27/25) Creatinine: 1.2 mg/dL (03/27/25) MPV: 7.2 fL (03/27/25) Globulin: 2.3 gm/dL (03/27/25) Neutro Absolute: 3.1 E9/L (03/27/25) Glucose Lvl: 155 mg/dL (03/27/25) Neutro Auto: 63 % (03/27/25) Potassium Lvl: 4.3 mmol/L (03/27/25) Platelet: 139 E9/L Low (03/27/25) Sodium Lvl: 140 mmol/L (03/27/25) RBC: 3.9 E12/L Low (03/27/25) Total Protein: 6.3 gm/dL (03/27/25) RDW: 16.3 % High (03/27/25) WBC: 4.9 E9/L (03/27/25) Liver Studies A-1-AT: 169 (01/28/24) AMA Ab Scr: <20.0 (01/28/24) MAXX Direct: Negative (01/28/24) Ceruloplasmin: 30.2 (01/28/24) Ferritin Lvl: 41 ng/mL (01/28/24) HCV Ab: Non Reactive (01/28/24) Hep B Core Ab Total: Negative (01/28/24) Hep B Core IgM: Negative (01/28/24) Hep Bs Ag: Negative (01/28/24) Hepatitis C Genotype: COMMENT (01/28/24) Iron: 70 mcg/dL (01/28/24) SMA Scr: 6 (01/28/24) TIBC: 433 mcg/dL High (01/28/24) Celiac Panel Antigliadin IgA: 2 (01/28/24) Antigliadin Ig (01/28/24) Endomysial Antibody IgA: Negative (01/28/24) IgA Quant: 64 (01/28/24) t-Transglutaminase IgA: <2 (01/28/24) t-Transglutaminase IgG: <2 (01/28/24) Histor (more content not included)... Normal [facility] Comment on above: Result Comment: Elec tronically Signed By: Shanel DONG, Verónica Finch\.br\Date and Time Signed: 03/30/25 10:12 EDT AFPon 03-28-2025 AFP.tumor marker [Mass/Vol] ng/mL Invalid Interpretation Code 0.0-9.2 [facility] Comment on above: Result Comment: [employer] Electrochemiluminescence Immunoassay (ECLIA) Values obtained with different assay methods or kits cannot be used interchangeably. Results cannot be interpreted as absolute evidence of the presence or absence of malignant disease. This test is not interpretable in females. Performed at: [address] [id number] PhD Isma Banks Performed By: #### 2 [id number] #### [facility] [address] [place] [address] CBC w/ Auto Diffon 5 Basophils/100 WBC (Bld) 0.4 % Normal 0.0-2.0 [facility] Comment on above: Performed By: #### 2 [id number] #### [facility] [address] [place] [address] Basophils/Leukocytes Auto (Bld) [Pure # fraction] 0.0 E9/L Normal 0.0-0.2 [facility] Comment on above: Performed By: #### 2 [id number] #### [facility] [address] [place] [address] 85401 Eosinophils (Bld) [#/Vol] 0.1 E9/L Normal 0.0-0.5 [facility] Comment on above: Performed By: #### 2 [id number] #### [facility] [address] [place] [address] 99358 Eosinophils/100 WBC (Bld) 1.9 % Normal 0.0-8.0 [facility] Comment on above: Performed By: #### 2 [id number] #### [facility] [address] [place] [address] 51952 Erythrocyte distribution width (RBC) [Ratio] 16.3 % High 10.9-14.2 [facility] Comment on above: Performed By: #### 2 [id number] #### [facility] [address] [place] [address] 17585 Hematocrit (Bld) [Volume fraction] 32.7 % Low 34.0-46.0 [facility] Comment on above: Performed By: #### 2 [id number] #### [facility] [address] [place] [address] Hemoglobin (Bld) [Mass/Vol] 11.4 g/dL Low 12.0-16.0 [facility] Comment on above: Performed By: #### 2 [id number] #### [facility] [address] [place] [address] Lymphocytes (Bld) [#/Vol] 1.4 E9/L Normal 1.0-4.0 [facility] Comment on above: Performed By: #### 2 225779 #### [facility] [address] [place] [address] Lymphocytes/100 WBC (Bld) 28.3 % Normal 14.0-50.0 [facility] Comment on above: Performed By: #### 2 110315 #### [facility] [address] [place] [address] MCH (RBC) [Entitic mass] 29.5 pg Normal 27.0-34.0 [facility] Comment on above: Performed By: #### 2 [id number] #### [facility] [address] [place] [address] MCHC (RBC) [Mass/Vol] 34.9 g/dL Normal 31.4-36.0 [facility] Comment on above: Performed By: #### 2 [id number] #### [facility] [address] [place] [address] MCV (RBC) [Entitic vol] 84.5 fL Normal 80.0-100.0 [facility] Comment on above: Performed By: #### 2 558137 #### [facility] [address] [place] [address] Monocytes (Bld) [#/Vol] 0.3 E9/L Normal 0.2-1.0 [facility] Comment on above: Performed By: #### 2 [id number] #### [facility] [address] [place] [address] Neutrophils (Bld) [#/Vol] 3.1 E9/L Normal 2.0-7.5 [facility] Comment on above: Performed By: #### 2 537492 #### [facility] [address] [place] [address] Neutrophils/100 WBC (Bld) 63.0 % Normal 36.0-75.0 [facility] Comment on above: Performed By: #### 2 [id number] #### [facility] [address] [place] [address] Platelet mean volume (Bld) [Entitic vol] 7.2 fL Normal 6.4-10.8 [facility] Comment on above: Performed By: #### 2 817209 #### [facility] [address] [place] [address]674 Platelets (Bld) [#/Vol] 139.0 E9/L Low 150.0-500.0 [facility] Comment on above: Performed By: #### 2 979153 #### [facility] [address] [place] [address] 87114 RBC (Bld) [#/Vol] 3.9 E12/L Low 4.3-5.9 [facility] Comment on above: Performed By: #### 2 585872 #### [facility] [address] [place] [address] 24869 WBC corrected for nucl RBC Auto (Bld) [#/Vol] 4.9 E9/L Normal 4.0-11.0 [facility] Comment on above: Performed By: #### 2 [id number] #### [facility] [address] [place] [address] CHEMISTRYOrdered By: SYSTEM SYSTEM on 03-27-2025 Albumin [Mass/Vol] 4.0 g/dL Normal 3.3 - 5.0 gm/dL Remisol Chem Albumin/Globulin [Mass ratio] 1.7 {ratio} Normal 1.1 - 2.2 [facility] ALP [Catalytic activity/Vol] 133 [iU]/d High 21 - 98 Int._Unit/L Rem[facility] Chem ALT No additional P-5'-P [Catalytic activity/Vol] 20 [iU]/d Normal 6 - 46 Int._Unit/L [facility] Anion gap [Moles/Vol] 12 mmol/L Normal 6 - 16 mEq/L [facility] AST [Catalytic activity/Vol] 17 [iU]/d Normal 5 - 43 Int._Unit/L [facility] Bilirubin [Mass/Vol] 0.6 mg/dL Normal 0.0 - 1 .1 mg/dL [facility] Calcium [Mass/Vol] 9.0 mg/dL Normal 8.9 - 11. 1 mg/dL [facility] Chloride [Moles/Vol] 104 mmol/L Normal 101 - 1 11 mmol/L [facility] CO2 [Moles/Vol] 28 mmol/L Normal 21 - 31 mmol/L [facility] Creatinine [Mass/Vol] 1.2 mg/dL Normal 0.5 - 1.3 mg/dL [facility] eGFR 47 mL/min/1.73 m2 Low >=59mL/min / 1.73 m2 [facility] Globulin (S) [Mass/Vol] 2.3 g/dL Normal 1.4 - 4.0 gm/dL [facility] Glucose [Mass/Vol] 155 mg/dL Normal 55 - 199 mg/dL [facility] Potassium [Moles/Vol] 4.3 mmol/L Normal 3.5 - 5.3 mmol/L [facility] Protein [Mass/Vol] 6.3 g/dL Normal 6.0 - 7.8 gm/dL [facility] Sodium [Moles/Vol] 140 mmol/L Normal 135 - 145 mmol/L [facility] Urea nitrogen [Mass/Vol] 36 mg/dL High 5 - 21 mg/dL [facility] Urea nitrogen/Creatinine [Mass ratio] 30 mg/mg High 10 - 20 [facility] CMPon 03-27-2025 Albumin [Mass/Vol] 4.0 g/dL Normal 3.3-5.0 [facility] Comment on above: Performed By: #### 2 [id number] #### [facility] [address] [place] [address] Albumin/Globulin (S) [Mass conc ratio] 1.7 Normal 1.1-2.2 [facility] Comment on above: Performed By: #### 2 [id number] #### [facility] [address] [place] [address] ALP [Catalytic activity/Vol] 133 Int._Unit/L High 21-98 [facility] Comment on above: Performed By: #### 2 [id number] #### [facility] [address] [place] [address] ALT No additional P-5'-P [Catalytic activity/Vol] 20 Int._Unit/L Normal 6-46 [facility] Comment on above: Performed By: #### 2 440598 #### [facility] [address] [place] [address] Anion gap [Moles/Vol] 12 mmol/L Normal 6-16 [facility] Comment on above: Performed By: #### 2 [id number] #### [facility] [address] [place] [address] AST [Catalytic activity/Vol] 17 Int._Unit/L Normal 5-43 [facility] Comment on above: Performed By: #### 2 150533 #### [facility] [address] [place] [address] Bilirubin [Mass/Vol] 0.6 mg/dL Normal 0.0-1.1 [facility] Comment on above: Performed By: #### 2 [id number] #### [facility] [address] [place] [address] Calcium [Mass/Vol] 9.0 mg/dL Normal 8.9-11.1 [facility] Comment on above: Performed By: #### 2 [id number] #### [facility] [address] [place] [address] Chloride [Moles/Vol] 104 mmol/L Normal 101-111 [facility] Comment on above: Performed By: #### 2 [id number] #### [facility] [address] [place] [address] CO2 [Moles/Vol] 28 mmol/L Normal 21-31 [facility] Comment on above: Performed By: #### 2 167337 #### [facility] [address] [place] [address] Creatinine [Mass/Vol] 1.2 mg/dL Normal 0.5-1.3 [facility] Comment on above: Performed By: #### 2 [id number] #### [facility] [address] [place] [address] Globulin (S) [Mass/Vol] 2.3 g/dL Normal 1.4-4.0 [facility] Comment on above: Performed By: #### 2 [id number] #### [facility] [address] [place] [address] Glucose [Mass/Vol] 155 mg/dL Normal 55-199 [facility] Comment on above: Performed By: #### 2 454103 #### [facility] [address] [place] [address] Potassium [Moles/Vol] 4.3 mmol/L Normal 3.5-5.3 [facility] Comment on above: Performed By: #### 2 974227 #### [facility] [address] [place] [address] Protein [Mass/Vol] 6.3 g/dL Normal 6.0-7.8 [facility] Comment on above: Performed By: #### 2 [id number] #### [facility] [address] [place] [address] Sodium [Moles/Vol] 140 mmol/L Normal 135-145 [facility] Comment on above: Performed By: #### 2 089111 #### [facility] [address] [place] [address] Urea nitrogen [Mass/Vol] 36 mg/dL High 5-21 [facility] Comment on above: Performed By: #### 2 [id number] #### [facility] [address] [place] [address] Urea nitrogen/Creatinine [Mass ratio] 30 No Units High 10-20 [facility] Comment on above: Performed By: #### 2 [id number] #### [facility] [address] [place] [address] COAGULATIONOrdered By: Moncia Gomez on 03-27-2025 aPTT Coag (PPP) [Time] 35.5 s Normal 25.1 - 36.5 second(s) [facility] Comment on above: Interpretive Data: Edgar rachelolegario 15 days - 4 weeks 1 - 5 months 6 - 11 months 1 - 5 years 6 - 10 years 11 - 17 years PTT Mean: 35.4 (27.6-45.6) Mean: 33.5 (24.8-40.7) Mean: 32.4 (25.1-40.7) Mean: 31.6 (24.0-39.2) Mean: 31.6 (26.9-38.7) Mean: 31.0 (24.6-38.4) Pediatric Reference ranges were obtained from a study by cole Mirza prepared from 1437 samples obtained at 7 different centers using the same coagulation reagent and instrumentation as [facility]. Currently there are no coagulation studies available worldwide for children to 14 days, and no normal ranges. Heparin therapeutic range (represented by Anti-Factor Xa activity of 0.2 - 0.4 U/mL) corresponds to PTT of 56.6 - 109.0 sec. INR Coag (PPP) [Relative time] 1.05 {INR} Invalid Interpretation Code [facility] Comment on above: Interpretive Data: I NR results are specifically intended to assess patients stabilized on long-term Anticoagulation therapy suggested INR s Less Intensive Anticoagulation 2.0 3.0 Conventional Range 3.0 4.5 PT Coag (PPP) [Time] 11.8 s Normal 9.4 - 1 2.5 second(s) [facility] Comment on above: Interpretive Data: [...] were obtained from a study by Manuel Avon, et al. prepared from 1437 samples obtained at 7 different centers using the same coagulation reagent and instrumentation as [facility]. Currently there are no coagulation studies available worldwide for children to 14 days, and no normal ranges. HEMATOLOGYOrdered By: SYSTEM SYSTEM on 03-27-2025 Basophils/100 WBC (Bld) 0.4 % Normal 0.0 - 2.0 % Remisol Heme Basophils/Leukocytes Auto (Bld) [Pure # fraction] 0.0 E9/L Normal 0.0 - 0.2 E9/L Remisol Heme Eosinophils (Bld) [#/Vol] 0.1 E9/L Normal 0.0 - 0.5 E9/L Remisol Heme Eosinophils/100 WBC (Bld) 1.9 % Normal 0.0 - 8.0 % Remisol Heme Erythrocyte distribution width (RBC) [Ratio] 16.3 % High 10.9 - 14.2 % Remisol Heme Hematocrit (Bld) [Volume fraction] 32.7 % Low 34.0 - 46.0 % Remisol Heme Hemoglobin (Bld) [Mass/Vol] 11.4 g/dL Low 12.0 - 16.0 gm/dL Remisol Heme Lymphocytes (Bld) [#/Vol] 1.4 E9/L Normal 1.0 - 4.0 E9/L Remisol Heme Lymphocytes/100 WBC (Bld) 28.3 % Normal 14.0 - 50.0 % Remisol Heme MCH (RBC) [Entitic mass] 29.5 pg Normal 27.0 - 34.0 pg Remisol Heme MCHC (RBC) [Mass/Vol] 34.9 g/dL Normal 31.4 - 36.0 gm/dL Remisol Heme MCV (RBC) [Entitic vol] 84.5 fL Normal 80.0 - 100.0 fL Remisol Heme Monocytes (Bld) [#/Vol] 0.3 E9/L Normal 0.2 - 1.0 E9/L Remisol Heme Monocytes/100 WBC (Bld) 6.4 % Normal 4.0 - 14.0 % Remisol Heme Neutrophils (Bld) [#/Vol] 3.1 E9/L Normal 2.0 - 7.5 E9/L Remisol Heme Neutrophils/100 WBC (Bld) 63.0 % Normal 36.0 - 75.0 % Remisol Heme Platelet mean volume (Bld) [Entitic vol] 7.2 fL Normal 6.4 - 10.8 fL Rem[facility] Heme Platelets (Bld) [#/Vol] 139.0 E9/L Low 150.0 - 500.0 E9/L Remisol Heme RBC (Bld) [#/Vol] 3.9 E12/L Low 4.3 - 5.9 E12/L Remisol Heme WBC corrected for nucl RBC Auto (Bld) [#/Vol] 4.9 E9/L Normal 4.0 - 11.0 E9/L Remisol Heme PT & PTTon 03-27-2025 aPTT Coag (PPP) [Time] 35.5 second(s) Normal 25.1-36.5 [facility] Comment on above: Result Comment: Para meter 15 days - 4 weeks 1 - 5 months 6 - 11 months 1 - 5 years 6 - 10 years 11 - 17 years PTT Mean: 35.4 (27.6-45.6) Mean: 33.5 (24.8-40.7) Mean: 32.4 (25.1-40.7) Mean: 31.6 (24.0-39.2) Mean: 31.6 (26.9-38.7) Mean: 31.0 (24.6-38.4) Pediatric Reference ranges were obtained from a study by Manuel Jeffries et al. prepared from 1437 samples obtained at 7 different centers using the same coagulation reagent and instrumentation as [facility]. Currently there are no coagulation studies available worldwide for children to 14 days, and no normal ranges. Heparin therapeutic range (represented by Anti-Factor Xa activity of 0.2 - 0.4 U/mL) corresponds to PTT of 56.6 - 109.0 sec. Performed By: #### 1 [id number] #### [facility] [address] [place] [address] INR Coag (PPP) [Relative time] 1.05 {INR} Invalid Interpretation Code [facility] Comment on above: Result Comment: INR results are specifically intended to assess patients stabilized on long-term Anticoagulation therapy suggested INR???s ???Less Intensive Anticoagulation??? 2.0 ??? 3.0 Conventional Range 3.0 ??? 4.5 Performed By: #### 1 [id number] #### [facility] [address] [place] [address] PT Coag (PPP) [Time] 11.8 second(s) Normal 9.4-12.5 [facility] Comment on above: Result Comment: 15 d ays - 4 weeks 1 - 5 months 6 -11 months 1 ??? 5 years 6 ??? 10 years 11 -17 years Mean: 11.2 (9.5 ??? 12.6) Mean: 11.0 (9.7 ??? 12.8) Mean: 11.0 (9.8 ??? 13.0) Mean: 11.3 (9.9 ??? 13.4) Mean: 11.7 (10.0 ??? 14.6) Mean: 11.8 (10.0 - 14.1) Pediatric Reference ranges were obtained from a study by Manuel Jeffries et al. prepared from 1437 samples obtained at 7 different centers using the same coagulation reagent and instrumentation as [facility]. Currently there are no coagulation studies available worldwide for children to 14 days, and no normal ranges. Performed By: #### 1 [id number] #### [facility] [address] [place] [address] eGFRon 03-27-2025 eGFR 47 mL/min/1.73 m2 Low >=59 [facility] Comment on above: Performed By: #### 1 [id number] #### [facility] [address] [place] [address] Reminderson 02-21-2025 Reminders Reminders From: Ellyn Copeland To: Lauren Day; Ellyn Copeland; Sent: 09/30/2024 13:06:26 EST Show up: 01/28/2025 14:06:00 EDT Subject: Ambulatory Reminder Due Date/Time: 02/28/2025 14:06:00 EDT Reminder Please call patient to schedule Fibroscan for 03-10 Patient is scheduled for 02/27/25 Normal [facility] MR lumbar spine wo conon MR lumbar spine wo con [facility] Main [place] [address] [place] [address] MRI Report Signed Patient: Anh Tejeda MR#: [id number] : 1950 Acct:[id number] Age/Sex: 74 / F ADM Date: 02/08/25 Loc: [facility] Room: Type: [facility] Attending Dr: Tessy Bruner MD Copies to: Tessy Bruner MD Ordering Provider: Tessy Bruner MD Date of Service: 02/08/25 MR/MR lumbar spine wo con: M48.062 MRI lumbar spine performed without contrast INDICATION: Lower back pain pain with walking M48.062 Comparison: X-rays lumbar spine dated 12/15/2024 FINDINGS: Mild to moderate dextrocurvature of the lumbar spine. Otherwise lumbar vertebral heights are maintained. Severe disc space disease at L2-3. Moderate severe disc space disease L4-5 and L5- S1. Moderate disc disease T12-L2 and mild disc disease at L3-L4. The conus medullaris terminates normally at L1-2. Prominence of the common bile duct 9 mm. Left renal cysts noted. T11-T12: There is suspicion of a circumferential bulge with facet arthropathy. Likely mild foraminal and canal narrowing. This only visualized on sagittal images. T12-L1: Broad-based disc bulge with moderate facet arthropathy. Right facets/synovial cyst 4 mm. Otherwise mild canal and mild neural foraminal narrowing. L1-2: Circumferential bulge with moderate facet arthropathy. Mild neural foraminal narrowing. Minimal canal narrowing. L2-3: Broad-based disc bulge with advanced facet arthropathy and ligamentum flavum hypertrophy.. There is moderate left-sided and mild right-sided neural foraminal narrowing. Moderate central canal stenosis L3-4: Broad-based disc bulge with moderate to severe facet arthropathy. Moderate central canal stenosis. Fkqv-tr-pfmcwnwh bilateral neural foraminal narrowing. Mild crowding of the subarticular zone zones. L4-5: Circumferential disc osteophyte complex with apparent asymmetric towards the right with bulky right foraminal zone and far lateral zone component. There is associated with moderate severe facet arthropathy with facet joint effusions. There is moderate severe right-sided and moderate left- sided neural foraminal narrowing. Severe subarticular zone effacement the right. Please correlate with right L5 radiculopathy. Otherwise moderate severe central canal stenosis. Moderate left foraminal narrowing. L5-S1: Circumferential disc osteophyte complex extending into the foramina zones and far lateral zones. There is associated with severe right-sided and moderate severe left-sided facet arthropathy. This causes severe right neural foraminal narrowing and moderate severe left-sided neural foraminal narrowing. Please correlate with bilateral L5 radiculopathy, right greater left. There is moderate crowding of both certainty results well, correlate with S1 radiculopathy. MR/MR lumbar spine wo con IMPRESSION: Multilevel degenerative changes with severe right-sided neural foraminal narrowing at L5-S1 please correlate with right L5 radiculopathy. Moderate severe right-sided neural foraminal narrowing at L4-5 moderate severe left-sided neural foraminal narrowing at L5-S1 Severe right subarticular zone effacement at L4-5, correlate with right L3 L5 radiculopathy. Moderate severe central canal stenosis L4-5 Additional level by level details within the body report. Impression dictated by: Narendra Guaman M.D.02/08/2025 2:29 PM Dictation Location: [place] [address] Transcribed By: MT 02/08/25 1429 Dictated By: Narendra Guaman MD 02/08/25 1337 Signed By: 02/08/25 1429 Normal [facility] Magnetic resonance imaging r eportOrdered By: Narendra Guaman on 02-08-2025 Study report [facility] [place] [address] MRI Report Signed Patient: Anh Tejeda MR#: [id number] : 1950 Acct:[id number] Age/Sex: 74 / F ADM Date: 5 Loc: [facility] Room: Type: [facility] Attending Dr: Tessy Bruner MD Copies to: Tessy Bruner MD~ Ordering Provider: Tessy Bruner MD Date of Service: 02/08/25 MR/MR lumbar spine wo con: M48.062 MRI lumbar spine performed without contrast INDICATION: Lower back pain pain with walking M48.062 Comparison: X-rays lumbar spine dated 12/15/2024 FINDINGS: Mild to moderate dextrocurvature of the lumbar spine. Otherwise lumbar vertebral heights are maintained. Severe disc space disease at L2-3. Moderate severe disc space disease L4-5 and L5-S1. Moderate disc disease [id number] mild disc disease at L3-L4. The conus medullaris terminates normally at L1-2. Prominence of the common bile duct 9 mm. Left renal cysts noted. T11-T12: There is suspicion of a circumferential bulge with facet arthropathy. Likely mild foraminal and canal narrowing. This only visualized on sagittal images. T12-L1: Broad-based disc bulge with moderate facet arthropathy. Right facets/synovial cyst 4 mm. Otherwise mild canal and mild neural foraminal narrowing. L1-2: Circumferential bulge with moderate facet arthropathy. Mild neural foraminal narrowing. Minimal canal narrowing. L2-3: Broad-based disc bulge with advanced facet arthropathy and ligamentum flavum hypertrophy.. There is moderate left-sided and mild right-sided neural foraminal narrowing. Moderate central canal stenosis L3-4: Broad-based disc bulge with moderate to severe facet arthropathy. Moderate central canal stenosis. Bkab-tx-dlrbopsb bilateral neural foraminal narrowing. Mild crowding of the subarticular zone zones. L4-5: Circumferential disc osteophyte complex with apparent asymmetric towards the right with bulky right foraminal zone and far lateral zone component. Thereis associated with moderate severe facet arthropathy with facet joint effusions. There is moderate severe right-sided and moderate left-sided neural foraminal narrowing. Severe subarticular zone effacement the right. Please correlate with right L5 radiculopathy. Otherwise moderate severe central canal stenosis. Moderate left foraminal narrowing. L5-S1: Circumferential disc osteophyte complex extending into the foramina zonesand far lateral zones. There is associated with severe right-sided and moderatesevere left-sided facet arthropathy. This causes severe right neural foraminal narrowing and moderate severe left-sided neural foraminal narrowing. Please correlate with bilateral L5 radiculopathy, right greater left. There is moderate crowding of both certainty results well, correlate with S1 radiculopathy. MR/MR lumbar spine wo con IMPRESSION: Multilevel degenerative changes with severe right-sided neural foraminal narrowing at L5-S1 please correlate with right L5 radiculopathy. Moderate severe right-sided neural foraminal narrowing at L4-5 moderate severe left-sided neural foraminal narrowing at L5-S1 Severe right subarticular zone effacement at L4-5, correlate with right L3 L5 radiculopathy. Moderate severe central canal stenosis L4-5 Additional level by level details within the body report. Impression dictated by: Narendra Guaman M.D.02/08/2025 2:29 PM Dictation Location: [place] [address] Transcribed By: [facility] 02/08/25 1429 Dictated By: Narendra Guaman MD 02/08/25 1337 Signed By: 02/08/25 1429 [facility] Work Phone: CBC W Auto Differential pane l (Bld)on 01-06-2025 Basophils (Bld) [#/Vol] 10*3/uL Normal <0.11 [facility] Comment on above: Order Comment: Speci men Type: BLOOD SPECIMENOrdering Facility: [facility] Address: [address] [place] [address] Performed By: #### 5 7021-8, 99841-6 ####[facility] LABCLIA [id number] [place] [address] Basophils/100 WBC (Bld) 0.2 % Normal [facility] Comment on above: Order Comment: Speci men Type: BLOOD SPECIMENOrdering Facility: [facility] Address: [address] [place] [address] Performed By: #### 5 7021-8, 27731-2 ####[facility] LABCLIA [id number] [place] [address] Differential cell count method Nom (Bld) Auto Normal [facility] Comment on above: Order Comment: Speci men Type: BLOOD SPECIMENOrdering Facility: [facility] Address: [address] [place] [address] Performed By: #### 5 7021-8, 08785-8 ####[facility] LABCLIA [id number] [place] [address] Eosinophils (Bld) [#/Vol] 0.11 10*3/uL Normal <0.46 [facility] Comment on above: Order Comment: Speci men Type: BLOOD SPECIMENOrdering Facility: [facility] Address: [address] [place] [address] Performed By: #### 5 7021-8, 32720-4 ####[facility] LABCLIA [id number] [place] [address] Eosinophils/100 WBC (Bld) 2.0 % Normal [facility] Comment on above: Order Comment: Speci men Type: BLOOD SPECIMENOrdering Facility: [facility] Address: [address] [place] [address] Performed By: #### 5 7021-8, 20549-0 ####[facility] LABCLIA [id number] [place] [address] Erythrocyte distribution width (RBC) [Ratio] 15.8 % High 11.5-15.0 [facility] Comment on above: Order Comment: Speci men Type: BLOOD SPECIMENOrdering Facility: [facility] Address: [address] [place] [address] Performed By: #### 5 7021-8, 47672-1 ####[facility] LABCLIA [id number] [place] [address] Hematocrit (Bld) [Volume fraction] 32.1 % Low 36.0-46.0 [facility] Comment on above: Order Comment: Speci men Type: BLOOD SPECIMENOrdering Facility: [facility] Address: [address] [place] [address] Performed By: #### 5 7021-8, 36135-5 ####[facility] LABCLIA [id number] [place] [address] Hemoglobin (Bld) [Mass/Vol] 11.0 g/dL Low 11.5-15.5 [facility] Comment on above: Order Comment: Speci men Type: BLOOD SPECIMENOrdering Facility: [facility] Address: [address] [place] [address] Performed By: #### 5 7021-8, 47034-8 ####[facility] LABCLIA [id number] [place] [address] Immature granulocytes (Bld) [#/Vol] 10*3/uL Normal <0.10 [facility] Comment on above: Order Comment: Speci men Type: BLOOD SPECIMENOrdering Facility: [facility] Address: [address] [place] [address] Performed By: #### 5 7021-8, 75458-1 ####[facility] LABCLIA [id number] [place] [address] Immature granulocytes/100 WBC (Bld) 0.4 % Normal [facility] Comment on above: Order Comment: Speci men Type: BLOOD SPECIMENOrdering Facility: [facility] Address: [address] [place] [address] Performed By: #### 5 7021-8, 65089-0 ####[facility] LABCLIA [id number] [place] [address] Lymphocytes (Bld) [#/Vol] 1.45 10*3/uL Normal 1.00-4.00 [facility] Comment on above: Order Comment: Speci men Type: BLOOD SPECIMENOrdering Facility: [facility] Address: [address] [place] [address] Performed By: #### 5 7021-8, 01077-7 ####[facility] LABCLIA [id number] [place] [address] Lymphocytes/100 WBC (Bld) 27.0 % Normal [facility] Comment on above: Order Comment: Speci men Type: BLOOD SPECIMENOrdering Facility: [facility] Address: [address] [place] [address] Performed By: #### 5 7021-8, 89487-8 ####[facility] LABCLIA [id number] [place] [address] MCH (RBC) [Entitic mass] 30.0 pg Normal 26.0-34.0 [facility] Comment on above: Order Comment: Speci men Type: BLOOD SPECIMENOrdering Facility: [facility] Address: [address] [place] [address] Performed By: #### 5 7021-8, 21614-4 ####[facility] LABCLIA [id number] [place] [address] MCHC (RBC) [Mass/Vol] 34.3 g/dL Normal 30.5-36.0 [facility] Comment on above: Order Comment: Speci men Type: BLOOD SPECIMENOrdering Facility: [facility] Address: [address] [place] [address] Performed By: #### 5 7021-8, 16035-9 ####[facility] LABCLIA [id number] [place] [address] MCV (RBC) [Entitic vol] 87.5 fL Normal 80.0-100.0 [facility] Comment on above: Order Comment: Speci men Type: BLOOD SPECIMENOrdering Facility: [facility] Address: [address] [place] [address] Performed By: #### 5 7021-8, 83005-2 ####[facility] LABCLIA [id number] [place] [address] Monocytes (Bld) [#/Vol] 0.32 10*3/uL Normal <0.87 [facility] Comment on above: Order Comment: Speci men Type: BLOOD SPECIMENOrdering Facility: [facility] Address: [address] [place] [address] Performed By: #### 5 7021-8, 02670-2 ####[facility] LABCLIA [id number] [place] [address] Monocytes/100 WBC (Bld) 5.9 % Normal [facility] Comment on above: Order Comment: Speci men Type: BLOOD SPECIMENOrdering Facility: [facility] Address: [address] [place] [address] Performed By: #### 5 7021-8, 13801-5 ####[facility] LABCLIA [id number] [place] [address] Neutrophils (Bld) [#/Vol] 3.47 10*3/uL Normal 1.45-7.50 [facility] Comment on above: Order Comment: Speci men Type: BLOOD SPECIMENOrdering Facility: [facility] Address: [address] [place] [address] Performed By: #### 5 7021-8, 22103-8 ####[facility] LABCLIA [id number] [place] [address] Neutrophils/100 WBC (Bld) 64.5 % Normal [facility] Comment on above: Order Comment: Speci men Type: BLOOD SPECIMENOrdering Facility: [facility] Address: [address] [place] [address] Performed By: #### 5 7021-8, 88163-1 ####[facility] LABCLIA [id number] [place] [address] Nucleated RBC (Bld) [#/Vol] 10*3/uL Normal <0.01 [facility] Comment on above: Order Comment: Speci men Type: BLOOD SPECIMENOrdering Facility: [facility] Address: [address] [place] [address] Performed By: #### 5 7021-8, 23458-7 ####[facility] LABCLIA [id number] [place] [address] Nucleated RBC/100 WBC (Bld) [Ratio] 0.0 /100 WBC Normal [facility] Comment on above: Order Comment: Speci men Type: BLOOD SPECIMENOrdering Facility: [facility] Address: [address] [place] [address] Performed By: #### 5 7021-8, 43436-5 ####[facility] LABCLIA [id number] [place] [address] Platelet mean volume (Bld) [Entitic vol] 8.8 fL Low 9.0-12.7 [facility] Comment on above: Order Comment: Speci men Type: BLOOD SPECIMENOrdering Facility: [facility] Address: [address] [place] [address] Performed By: #### 5 7021-8, 53648-5 ####[facility] LABCLIA [id number] [place] [address] Platelets (Bld) [#/Vol] 117 10*3/uL Low 150-400 [facility] Comment on above: Order Comment: Speci men Type: BLOOD SPECIMENOrdering Facility: [facility] Address: [address] [place] [address] Performed By: #### 5 7021-8, 67740-1 ####[facility] LABCLIA [id number] [place] [address] RBC (Bld) [#/Vol] 3.67 10*6/uL Low 3.90-5.20 [facility] Comment on above: Order Comment: Speci men Type: BLOOD SPECIMENOrdering Facility: [facility] Address: [address] [place] [address] Performed By: #### 5 7021-8, 75258-0 ####[facility] LABCLIA [id number] [place] [address] WBC (Bld) [#/Vol] 5.38 10*3/uL Normal 3.70-11.00 [facility] Comment on above: Order Comment: Speci men Type: BLOOD SPECIMENOrdering Facility: [facility] Address: [address] [place] [address] Performed By: #### 5 7021-8, 83682-8 ####[facility] LABIA [id number] [place] [address] CNOVSPon 01-06-2025 CNOVSP Visit (SP) Office (H EMASA) ANH TEJEDA ([id number]) 1950 F Date Time Provider Department 01/06/25 2:30 PM DAKSHA BRIDGES During your visit today, we recorded the following information about you: Temperature Pulse Respiration Blood pressure 97.8 degrees 80/minute 18/minute 132/72 Weight 96.6 kg Daksha Bridges PA-C 01/06/2025 2:38 PM Signed Hematology Progress Note PATIENT NAME: Anh Tejeda CLINIC NO.: [id number] ATTENDING PHYSICIAN: Henry Walker MD DATE OF SERVICE: 01/06/2025 This note was copied from prior heme/onc encounter from 07/15/2024. The patient's medications, allergies, past medical/surgical hx, family hx, ROS, and physical exam have all been reviewed and updated as appropriate. The interval history and assessment/plan content have been modified and are specific to today's (01/06/2025) purpose for the visit. CHIEF COMPLAINT: 3 month Follow up Diagnosis: NAINA Treatment: Venofer x 3 doses 10/2022, again in January 2024 Interval History: Anh returns for follow up. Overall she is feeling pretty good. Tired at times, but nothing out of the ordinary. Denies any ONEIL, swelling or PICA. She occasionally has dizziness with standing. Denies any bleeding. She is still having issues with itching from her new liver medication, and is seeing GI next month. Current Outpatient Medications Medication Sig diphenhydrAMINE HCl (CHILDREN'S BENADRYL ALLERGY) 12.5 mg chewable tablet 25 mg. FARXIGA 10 mg tablet TAKE 1 TABLET BY MOUTH EVERYDAY FOR DIABETES resmetirom (REZDIFFRA) 80 mg tablet once daily. allopurinol (ZYLOPRIM) 300 mg tablet 300 mg. JANUVIA 50 mg tablet Take 1 tablet by mouth every afternoon. albuterol HFA (PROVENTIL HFA, VENTOLIN HFA) 90 mcg/actuation inhaler INHALE 2 PUFFS BY MOUTH EVERY 4 HOURS NEEDED FOR COUGH magnesium oxide 400 mg magnesium tab Take [...] malaise or fevers. No night sweats. +fatigue mild HEENT: Negative for headaches, No changes in [...] muscle pain. SKIN: Negative for lesions, rash. +Itching HEMATOLOGY/LYMPHOLOGY Negative for prolonged bleeding, bruising easily, and swollen nodes. NEURO: Negative for numbness or tingling of hands/feet. No weakness. PHYSICAL EXAMINATION: BP 132/72 Pulse 80 Temp 36.6 ?C (97.8 ?F) (Temporal) Resp 18 Wt 96.6 kg (212 lb 15.4 oz) SpO2 97% BMI 38.70 kg/m? ECOG PS: 1 PHYSICAL EXAMINATION General: Alert and oriented, no distress, pleasant and cooperative. Heart: Regular, normal S1 and S2, no murmurs, rubs, or ga (more content not included)... Normal [facility] Comprehensive metabolic 2000 panelon 01-06-2025 Albumin [Mass/Vol] 4.0 g/dL Normal 3.9-4.9 [facility] Comment on above: Order Comment: Patricia tarango Type: BLOOD SPECIMEN [facility] Facility[facility] Address: [address] [place] [address] Performed By: #### 5 7021-8, 75792-3 #### [facility] CLIA [id number] [address] [place] [address] ALP [Catalytic activity/Vol] 164 U/L High 34-123 [facility] Comment on above: Order Comment: Patricia tarango Type: BLOOD SPECIMEN [facility] Facility: [facility] Address: [address] [place] [address] Performed By: #### 5 7021-8, 45913-9 #### [facility] CLIA [id number] [address] [place] [address] ALT [Catalytic activity/Vol] 18 U/L Normal 7-38 [facility] Comment on above: Order Comment: Speci men Type: BLOOD SPECIMEN [facility] Facility: [facility] Address: [address] [place] [address] Performed By: #### 5 7021-8, 86514-7 #### [facility] CLIA [id number] [address] [place] [address] Anion gap [Moles/Vol] 11 mmol/L Normal 8-15 [facility] Comment on above: Order Comment: Speci men Type: BLOOD SPECIMEN [facility] Facility[facility] Address: [address] [place] [address] Performed By: #### 5 7021-8, 24173-8 #### [facility] CLIA [id number] [address] [place] [address] AST [Catalytic activity/Vol] 21 U/L Normal 13-35 [facility] Comment on above: Order Comment: Speci men Type: BLOOD SPECIMEN [facility] Facility: [facility] Address: [address] [place] [address] Performed By: #### 5 7021-8, 61959-4 #### [facility] CLIA [id number] [address] [place] [address] Bilirubin [Mass/Vol] 0.4 mg/dL Normal 0.2-1.3 [facility] Comment on above: Order Comment: Speci men Type: BLOOD SPECIMEN [facility] Facility: [facility] Address: [address] [place] [address] Performed By: #### 5 7021-8, 67632-1 #### [facility] CLIA [id number] [address] [place] [address] Calcium [Mass/Vol] 9.4 mg/dL Normal 8.5-10.2 [facility] Comment on above: Order Comment: Speci men Type: BLOOD SPECIMEN [facility] Facility: [facility] Address: [address] [place] [address] Performed By: #### 5 7021-8, 99461-8 #### [facility] CLIA [id number] [address] [place] [address] Chloride [Moles/Vol] 102 mmol/L Normal 98-107 [facility] Comment on above: Order Comment: Speci men Type: BLOOD SPECIMEN [facility] Facility: [facility] Address: [address] [place] [address] Performed By: #### 5 7021-8, 00883-3 #### [facility] CLIA [id number] [address] [place] [address] CO2 [Moles/Vol] 29 mmol/L Normal 22-30 [facility] Comment on above: Order Comment: Speci men Type: BLOOD SPECIMEN [facility] Facility: [facility] Address: [address] [place] [address] Performed By: #### 5 7021-8, 04785-8 #### [facility] CLIA [id number] [address] [place] [address] Creatinine [Mass/Vol] 1.27 mg/dL High 0.58-0.96 [facility] Comment on above: Order Comment: Speci men Type: BLOOD SPECIMEN [facility]ing Facility: [facility] Address: [address] [place] [address] Performed By: #### 5 7021-8, 43531-2 #### [facility] CLIA [id number] [address] [place] [address] Creatinine and Glomerular filtration rate.predicted panel (S/P/Bld) 44 mL/min/1.73m??? Low >=60 [facility] Comment on above: Order Comment: Speci men Type: BLOOD SPECIMEN [facility]ing Facility: [facility] Address: [address] [place] [address] Result Comment: Maru mated Glomerular Filtration Rate [...] reflect actual GFR. Performed By: #### 5 7021-8, 99143-9 #### [facility] CLIA [id number] [address] [place] [address] Glucose [Mass/Vol] 216 mg/dL High 74-99 [facility] Comment on above: Order Comment: Speci sukhdeep Type: BLOOD SPECIMEN Ordering Facility: [facility] Address: [address] [place] [address] Result Comment: The [place] [employer] (ADA) provides guidance for cutoff [...] Standards of Medical Care in Diabetes 2016, [place] [employer]. Diabetes Care. 2016.39(Suppl 1). Performed By: #### 5 7021-8, 86915-5 #### [facility] CLIA [id number] [address] [place] [place] [address] Potassium [Moles/Vol] 4.0 mmol/L Normal 3.7-5.1 [facility] Comment on above: Order Comment: Patricia tarango Type: BLOOD SPECIMEN Ordering Facility: [facility] Address: [address] [place] [address] Performed By: #### 5 7021-8, 73048-4 #### [facility] CLIA [id number] [address] [place] [address] Protein [Mass/Vol] 6.4 g/dL Normal 6.3-8.0 [facility] Comment on above: Order Comment: Patricia tarango Type: BLOOD SPECIMEN Ordering Facility: [facility] Address: [address] [place], [place] [id number] Performed By: #### 5 7021-8, 68199-1 #### [facility] CLIA [id number] [address] [place] [address] Sodium [Moles/Vol] 142 mmol/L Normal 136-144 [facility] Comment on above: Order Comment: Speci men Type: BLOOD SPECIMEN Ordering Facility: [facility] Address: [address] [place] [address] Performed By: #### 5 7021-8, 17838-7 #### [facility] CLIA [id number] [address] [place] [address] Urea nitrogen [Mass/Vol] 31 mg/dL High 7-21 [facility] Comment on above: Order Comment: Speci men Type: BLOOD SPECIMEN Ordering Facility: [facility] Address: [address] [place] [address] Performed By: #### 5 7021-8, 43761-4 #### [facility] CLIA [id number] [address] [place] [address] Ferritin SerPl-mCncon 2024 Ferritin [Mass/Vol] 449.0 ng/mL High 14.7-205.1 [facility] Comment on above: Order Comment: Speci men Type: BLOOD SPECIMEN Ordering Facility: [facility] Address: [address] [place] [address] Performed By: #### 5 7021-8, 51524-9 #### [facility] CLIA [id number] [address] [place] [address] Iron and Iron binding capaci ty panelon 01-06-2025 Iron [Mass/Vol] 58 ug/dL Normal 41-186 [facility] Comment on above: Order Comment: Speci men Type: BLOOD SPECIMEN Ordering Facility: [facility] Address: [address] [place] [address] Performed By: #### 5 7021-8, 07260-2 #### [facility] CLIA [id number] [address] [place] [address] Iron binding capacity [Mass/Vol] 320 ug/dL Normal 232-386 [facility] Comment on above: Order Comment: Speci men Type: BLOOD SPECIMEN Ordering Facility: [facility] Address: [address] [place] [address] Performed By: #### 5 7021-8, 62641-1 #### [facility] CLIA [id number] [address] [place] [address] Iron/TIBC [Molar ratio] 18.1 % Normal 15.0-57.0 [facility] Comment on above: Order Comment: Speci men Type: BLOOD SPECIMEN Ordering Facility: [facility] Address: [address] [place] [address] Performed By: #### 5 7021-8, 50620-9 #### [facility] CLIA [id number] [address] [place] [address] Retics #on 01-06-2025 Reticulocytes (Bld) [#/Vol] 0.63931 10*3/uL High 0.018-0.100 [facility] Comment on above: Order Comment: Speci men Type: BLOOD SPECIMENOrdering Facility: [facility] Address: [address] [place] [address] Performed By: #### 5 7021-8, 26216-3 ####[facility] [id number] [place] [address] Reticulocytes (Bld) [#/Vol]o n 01-06-2025 Reticulocytes/100 RBC (Bld) 4.0 % High 0.4-2.0 [facility] Comment on above: Order Comment: Speci men Type: BLOOD SPECIMENOrdering Facility: [facility] Address: [address] [place] [address] Performed By: #### 5 7021-8, 53093-5 ####[facility] [id number] [place] [address] Afshin 01-02-2025 JENYN Telephone (HEMASA) ANH TEJEDA ([id number]) 1950 F Date Time Provider Department 01/02/25 DAKSHA BRIDGES HEMASA During your visit today, we recorded the following information about you: Verenice Andres MA 01/02/2025 2:52 PM Signed Lab orders needed for upcoming appointment scheduled 01/06. Verenice Andres MA Allergies As of Date: 01/02/2025 Noted Allergy Reaction ACETAMINOPHEN-CODEINE 10/01/2022 14 - Other: See Comments Comments: pt states she is unwilling to try even plain tylenol after this experience even though she states she took tylenol prior to this and had no problems TYLENOL #3 (CODEINE) 09/26/2022 14 - Other: See Comments Comments: Upset stomach Date Reviewed: 10/10/2024 Reviewed by: Daksha Bridges, PAGayleC - Fully Assessed Reason for Visit: Lab Orders [168] Primary Visit Diagnosis:Iron deficiency anemia, unspecified iron deficiency anemia type [D50.9] Order(s):COMPLETE BLOOD COUNT AND DIFFERENTIAL [SQCBCDIF] Order #: [id number] FUTURE FERRITIN [SQFERR] Order #: [id number] FUTURE IRON AND TIBC [SQIRON] Order #: [id number] FUTURE RETICULOCYTE COUNT [SQRETIC] Order #: [id number] FUTURE COMPREHENSIVE METABOLIC PANEL [SQCMP] Order #: [id number] FUTURE Prescriptions as of 01/02/2025 - diphenhydrAMINE HCl (CHILDREN'S BENADRYL ALLERGY) 12.5 mg chewable tablet 25 mg. - FARXIGA 10 mg tablet TAKE 1 TABLET BY MOUTH EVERYDAY FOR DIABETES - resmetirom (REZDIFFRA) 80 mg tablet once daily. - allopurinol (ZYLOPRIM) 300 mg tablet 300 mg. - JANUVIA 50 mg tablet Take 1 tablet by mouth every afternoon. - albuterol HFA (PROVENTIL HFA, VENTOLIN HFA) 90 mcg/actuation inhaler INHALE 2 PUFFS BY MOUTH EVERY 4 HOURS NEEDED FOR COUGH - magnesium oxide 400 mg magnesium tab Take 1 tablet by mouth once daily. - ASCORBIC ACID, [...] 1,000 Units by mouth once daily. - gabapentin (NEURONTIN) 300 mg capsule Take 300 mg by mouth daily at bedtime. - lisinopril-hydroCHLOROthiaz jennifer (PRINZIDE,ZESTORETIC) 10-12.5 mg per tablet Take 1 tablet by mouth once daily. - glimepiride (AMARYL) 2 mg tablet Take 2 mg by mouth daily with breakfast. - omeprazole (PRILOSEC) 20 mg capsule Take 20 mg by mouth once daily. - rOPINIRole (REQUIP) 0.5 mg tablet Take 0.5 mg by mouth twice daily. Problem List As Of Date 01/02/2025 Noted Resolved Iron deficiency anemia due to chronic blood los*10/03/2022 Stage 3b chronic kidney disease (HCC) [N18.32] 01/29/2024 Encounter Status:Closed by VERNON HENRIQUEZ on 01/02/25 Normal [facility] A1C with Estimated Average G keniakonstantin 12-28-2024 Glucose [Mass/Vol] 212 mg/dL Normal [facility] Comment on above: Result Comment: PERF ORMED BY: [place] [address] PATHOLOGIST SPECIAL MACHINE OPERATOR VEL GARCIA M.D. Performed By: #### H EPATIC, HS TROP, BNP, BMP, CK, PTT, CBC, PT #### [address] HbA1c (Bld) [Mass fraction] 9.0 % High 4.3-5.6 [facility] Comment on above: Result Comment: Incr eased risk for diabetes: 5.7 - 6.4 diabetes: >6.4 glycemic control for adults with diabetes: <7.0 Performed By: #### H EPATIC, HS TROP, BNP, BMP, CK, PTT, CBC, PT #### [facility] [address] Alanine aminotransferase [En zymatic activity/volume] in Serum or PlasmaOrdered By: Marilyn Stewart on 12-28-2024 ALT [Catalytic activity/Vol] Alanine aminotransferase [Enzymatic activity/volume] in Serum or Plasma 7-52 [facility] Albumin [Mass/volume] in Ser um or Plasma by Bromocresol green (BCG) dye binding methoOrdered By: Marilyn Stewart on 12-28-2024 Albumin BCG dye [Mass/Vol] Albumin [Mass/volume] in Serum or Plasma by Bromocresol green (BCG) dye binding metho 3.5-5.7 [facility] Alkaline phosphatase [Enzyma tic activity/volume] in Serum or PlasmaOrdered By: Marilyn Stewart on 12-28-2024 ALP [Catalytic activity/Vol] Alkaline phosphatase [Enzymatic activity/volume] in Serum or Plasma High 34-104 [facility] Appearance of UrineOrdered B y: Marilyn Stewart on 12-28-2024 Appearance (U) Urine appearance Abnormal Clear [facility] Aspartate aminotransferase [ Enzymatic activity/volume] in Serum or PlasmaOrdered By: Marilyn Stewart on 12-28-2024 AST [Catalytic activity/Vol] Aspartate aminotransferase [Enzymatic activity/volume] in Serum or Plasma 13-39 [facility] Bacteria [Presence] in Urine by AutomatedOrdered By: Marilyn Stewart on 12-28-2024 Bacteria Auto Ql (U) Bacteria [Presence] in Urine by Automated None Seen [facility] Bilirubin Test strip Ql (U)O rdered By: Marilyn Stewart on 12-28-2024 Bilirubin Ql (U) Bilirubin.total [Pre sence] in Urine by Test strip Negative [facility] Bilirubin.total [Mass/volume ] in Serum or PlasmaOrdered By: Marilyn Stewart on 12-28-2024 Bilirubin [Mass/Vol] Bilirubin.total [Mass/volume] in Serum or Plasma 0.3-1.0 [facility] Blood estimated average gluc ose determination by estimation from glycated hemoglobinOrdered By: Vinay Matta on 12-28-2024 Average glucose Estimated from glycated hemoglobin (Bld) [Mass/Vol] Glucose mean value [Mass/volume] in Blood Estimated from glycated hemoglobin [facility] Calcium [Mass/volume] in Ser um or PlasmaOrdered By: Marilyn Stewart on 12-28-2024 Calcium [Mass/Vol] Calcium [Mass/volume ] in Serum or Plasma Low 8.6-10.3 [facility] Carbon dioxide, total [Moles /volume] in Serum or PlasmaOrdered By: Marilyn Stewart on 12-28-2024 CO2 [Moles/Vol] Carbon dioxide, tota l [Moles/volume] in Serum or Plasma 21.0-31.0 [facility] Chloride [Moles/volume] in S hilda or PlasmaOrdered By: Marilyn Stewart on 12-28-2024 Chloride [Moles/Vol] Chloride [Moles/vol ume] in Serum or Plasma 98-107 [facility] Cholesterol [Mass/volume] in Serum or PlasmaOrdered By: Marilyn Stewart on 12-28-2024 Cholesterol [Mass/Vol] Cholesterol [Mass/volume] in Serum or Plasma Low 140-200 [facility] Comment on above: Chol less than 200 m g/dl low riskChol 201-239 mg/dl borderline riskChol 240 mg/dl and greater high risk Cholesterol in HDL [Mass/vol ume] in Serum or PlasmaOrdered By: Marilyn Stewart on 12-28-2024 Cholesterol in HDL [Mass/Vol] Serum or plasma high density lipoprotein (HDL) cholesterol measurement 23-92 [facility] Comment on above: HDL CHOL ATP-III CLA SSIFICATION Cardiovascular RiskHDL > or equal to 60 mg/dL LOWHDL < 40 mg/dL HIGH Cholesterol in LDL Calc [Mas s/Vol]Ordered By: Marilyn Stewart on 12-28-2024 Cholesterol in LDL [Mass/Vol] Cholesterol in LDL [Mass/volume] in Serum or Plasma by calculation 0-100 [facility] Comment on above: LDL ATP III CLASSIFI CATIONLDL less than 100 mg/dL OptimalLDL 100-129 mg/dL Near or above optimalLDL 130-159 mg/dL Borderline highLDL 160-189 mg/dL HighLDL greater than 189 mg/dL Very high Cholesterol in VLDL Calc [Ma ss/Vol]Ordered By: Marilyn Stewart on 12-28-2024 Cholesterol in VLDL [Mass/Vol] Cholesterol in VLDL [Mass/volume] in Serum or Plasma by calculation [facility] Color Auto (U)Ordered By: Ab wing Terry on 12-28-2024 Color (U) Color of Urine by Auto Yellow Fi [facility] Comprehensive Metabolic Pane palmer 12-28-2024 Albumin [Mass/Vol] 3.8 g/dL Normal 3.5-5.7 [facility] Comment on above: Performed By: #### H EPATIC, HS TROP, BNP, BMP, CK, PTT, CBC, PT #### [address] Albumin/Globulin [Mass ratio] 1.8 {ratio} Normal [facility] Comment on above: Performed By: #### H EPATIC, HS TROP, BNP, BMP, CK, PTT, CBC, PT #### [facility] [address] ALP [Catalytic activity/Vol] 130 U/L High 34-104 [facility] Comment on above: Performed By: #### H EPATIC, HS TROP, BNP, BMP, CK, PTT, CBC, PT #### [facility] [address] ALT [Catalytic activity/Vol] 19 U/L Normal 7-52 [facility] Comment on above: Performed By: #### H EPATIC, HS TROP, BNP, BMP, CK, PTT, CBC, PT #### [address] Anion gap [Moles/Vol] 11.6 mmol/L Normal 6.0-15.0 [facility] Comment on above: Performed By: #### H EPATIC, HS TROP, BNP, BMP, CK, PTT, CBC, PT #### [address] AST [Catalytic activity/Vol] 24 U/L Normal 13-39 [facility] Comment on above: Performed By: #### H EPATIC, HS TROP, BNP, BMP, CK, PTT, CBC, PT #### [address] Bilirubin [Mass/Vol] 0.7 mg/dL Normal 0.3-1.0 [facility] Comment on above: Performed By: #### H EPATIC, HS TROP, BNP, BMP, CK, PTT, CBC, PT #### [address] Calcium [Mass/Vol] 8.5 mg/dL Low 8.6-10.3 [facility] Comment on above: Performed By: #### H EPATIC, HS TROP, BNP, BMP, CK, PTT, CBC, PT #### [address] Chloride [Moles/Vol] 102 mmol/L Normal 98-107 [facility] Comment on above: Performed By: #### H EPATIC, HS TROP, BNP, BMP, CK, PTT, CBC, PT #### [address] CO2 [Moles/Vol] 29.4 mmol/L Normal 21.0-31.0 [facility] Comment on above: Performed By: #### H EPATIC, HS TROP, BNP, BMP, CK, PTT, CBC, PT #### [address] Creatinine [Mass/Vol] 1.32 mg/dL High 0.60-1.20 [facility] Comment on above: Performed By: #### H EPATIC, HS TROP, BNP, BMP, CK, PTT, CBC, PT #### [address] Estimated GFR 42.104 mL/Min Normal [facility] Comment on above: Performed By: #### H EPATIC, HS TROP, BNP, BMP, CK, PTT, CBC, PT #### [address] Globulin (S) [Mass/Vol] 2.1 g/dL Normal [facility] Comment on above: Performed By: #### H EPATIC, HS TROP, BNP, BMP, CK, PTT, CBC, PT #### [address] Glucose [Mass/Vol] 182 mg/dL High 70-100 [facility] Comment on above: Result Comment: [facility] Glucose Reference Range is dependent on time and content of last meal. Glucose of more than 200 mg/dL in a nonstressed, ambulatory subject supports the diagnosis of Diabetes Mellitus. ADA recommended reference range Performed By: #### H EPATIC, HS TROP, BNP, BMP, CK, PTT, CBC, PT #### [address] Potassium [Moles/Vol] 4.0 mmol/L Normal 3.5-5.1 [facility] Comment on above: Performed By: #### H EPATIC, HS TROP, BNP, BMP, CK, PTT, CBC, PT #### [address] Protein [Mass/Vol] 5.9 g/dL Low 6.4-8.9 [facility] Comment on above: Performed By: #### H EPATIC, HS TROP, BNP, BMP, CK, PTT, CBC, PT #### [address] Sodium [Moles/Vol] 139 mmol/L Normal 136-145 [facility] Comment on above: Performed By: #### H EPATIC, HS TROP, BNP, BMP, CK, PTT, CBC, PT #### [address] Urea nitrogen [Mass/Vol] 29 mg/dL High 7-25 [facility] Comment on above: Performed By: #### H EPATIC, HS TROP, BNP, BMP, CK, PTT, CBC, PT #### [facility] [address] Creatinine [Mass/volume] in Serum or PlasmaOrdered By: Marilyn Stewart on 12-28-2024 Creatinine [Mass/Vol] Creatinine [Mass/v olume] in Serum or Plasma High 0.60-1.20 [facility] Creatinine [Mass/volume] in UrineOrdered By: Marilyn Terry on 12-28-2024 Creatinine (U) [Mass/Vol] Creatinine [Mass/volume] in Urine [facility] Comment on above: No reference range e stablished Dipstick and Microscopicon 0 12-28-2024 Appearance (U) Cloudy Critically abnormal Clear [facility] Comment on above: Order Comment: Name Collection Type:: Clean-Voided Midstream Performed By: #### H EPATIC, HS TROP, BNP, BMP, CK, PTT, CBC, PT #### [address] Bacteria,Urine Rare Normal None Seen [facility] Comment on above: Order Comment: Name Collection Type:: Clean-Voided Midstream Performed By: #### H EPATIC, HS TROP, BNP, BMP, CK, PTT, CBC, PT #### [address] Bilirubin,Urine Negative Normal Negative [facility] Comment on above: Order Comment: Name Collection Type:: Clean-Voided Midstream Performed By: #### H EPATIC, HS TROP, BNP, BMP, CK, PTT, CBC, PT #### [address] Color (U) Light-Yellow Normal Yellow [facility] Comment on above: Order Comment: Name Collection Type:: Clean-Voided Midstream Performed By: #### H EPATIC, HS TROP, BNP, BMP, CK, PTT, CBC, PT #### [address] Glucose Ql (U) 50 mg/dL High Normal [facility] Comment on above: Order Comment: Name Collection Type:: Clean-Voided Midstream Performed By: #### H EPATIC, HS TROP, BNP, BMP, CK, PTT, CBC, PT #### [address] Hyaline Casts,Urine None Normal 0-8 [facility] Comment on above: Order Comment: Name Collection Type:: Clean-Voided Midstream Performed By: #### H EPATIC, HS TROP, BNP, BMP, CK, PTT, CBC, PT #### [address] Ketones Ql (U) Negative Normal Negative [facility] Comment on above: Order Comment: Name Collection Type:: Clean-Voided Midstream Performed By: #### H EPATIC, HS TROP, BNP, BMP, CK, PTT, CBC, PT #### [address] Leukocyte esterase Test strip Ql (U) Negative Normal Negative [facility] Comment on above: Order Comment: Name Collection Type:: Clean-Voided Midstream Performed By: #### H EPATIC, HS TROP, BNP, BMP, CK, PTT, CBC, PT #### [address] Mucus,Urine Rare Normal [facility] Comment on above: Order Comment: Name Collection Type:: Clean-Voided Midstream Result Comment: PERF ORMED BY: [place] [address] PATHOLOGIST SPECIAL MACHINE OPERATOR VEL GARCIA M.D. Performed By: #### H EPATIC, HS TROP, BNP, BMP, CK, PTT, CBC, PT #### [address] Nitrite,Urine Positive High Negative [facility] Comment on above: Order Comment: Name Collection Type:: Clean-Voided Midstream Performed By: #### H EPATIC, HS TROP, BNP, BMP, CK, PTT, CBC, PT #### [address] Occult Blood,Urine Negative Normal Negative [facility] Comment on above: Order Comment: Name Collection Type:: Clean-Voided Midstream Performed By: #### H EPATIC, HS TROP, BNP, BMP, CK, PTT, CBC, PT #### [address] pH (U) 5.5 [pH] Normal 5.0-9.0 [facility] Comment on above: Order Comment: Name Collection Type:: Clean-Voided Midstream Performed By: #### H EPATIC, HS TROP, BNP, BMP, CK, PTT, CBC, PT #### [address] Protein,Urine Negative Normal Negative [facility] Comment on above: Order Comment: Name Collection Type:: Clean-Voided Midstream Performed By: #### H EPATIC, HS TROP, BNP, BMP, CK, PTT, CBC, PT #### [address] RBC,Urine 1-2 Normal 0-4 [facility] Comment on above: Order Comment: Name Collection Type:: Clean-Voided Midstream Performed By: #### H EPATIC, HS TROP, BNP, BMP, CK, PTT, CBC, PT #### [address] Specificy Placida,Urine 1.016 Normal 1.001-1.030 [facility] Comment on above: Order Comment: Name Collection Type:: Clean-Voided Midstream Performed By: #### H EPATIC, HS TROP, BNP, BMP, CK, PTT, CBC, PT #### [address] Squamous Epithelial Cell,Urine 5-9 High 0-2 [facility] Comment on above: Order Comment: Name Collection Type:: Clean-Voided Midstream Performed By: #### H EPATIC, HS TROP, BNP, BMP, CK, PTT, CBC, PT #### [address] Urobilinogen,Urine Normal Normal Normal [facility] Comment on above: Order Comment: Name Collection Type:: Clean-Voided Midstream Performed By: #### H EPATIC, HS TROP, BNP, BMP, CK, PTT, CBC, PT #### [facility] [address] WBC,Urine 5-9 High 0-4 [facility] Comment on above: Order Comment: Name Collection Type:: Clean-Voided Midstream Performed By: #### H EPATIC, HS TROP, BNP, BMP, CK, PTT, CBC, PT #### [facility] [address] [place] [address] Epithelial cells.squamous [# /area] in Urine sediment by Automated countOrdered By: Marilyn Terry on 12-28-2024 Epithelial cells.squamous Auto (Urine sed) [#/Area] Epithelial cells.squamous [#/area] in Urine sediment by Automated count High 0-2 [facility] Erythrocyte distribution wid th Auto (RBC) [Ratio]Ordered By: Marilyn Terry on 12-28-2024 Erythrocyte distribution width (RBC) [Ratio] Erythrocyte distribution width [Ratio] by Automated count High 11.9-15.3 [facility] Erythrocytes [#/area] in Uri ne sediment by Automated countOrdered By: Marilyn Terry on 12-28-2024 RBC Auto (Urine sed) [#/Area] Erythrocytes [#/area] in Urine sediment by Automated count 0-4 [facility] Ferritinon 12-28-2024 Ferritin [Mass/Vol] 398.3 ng/mL High 11.0-306.8 [facility] Comment on above: Performed By: #### H EPATIC, HS TROP, BNP, BMP, CK, PTT, CBC, PT #### [facility] [address] [place] [address] Ferritin [Mass/volume] in Se rum or PlasmaOrdered By: Marilyn Terry on 12-28-2024 Ferritin [Mass/Vol] Ferritin [Mass/volum e] in Serum or Plasma High 11.0-306.8 [facility] Globulin Calc (S) [Mass/Vol] Ordered By: Marilyn Terry on 12-28-2024 Globulin (S) [Mass/Vol] Serum globulin measurement by calculation (mass/volume) [facility] Glucose [Mass/volume] in Ser um or PlasmaOrdered By: Marilyn Terry on 12-28-2024 Glucose [Mass/Vol] Glucose [Mass/volume ] in Serum or Plasma High 70-100 [facility] Comment on above: ADA recommended refe rence rangeRandom Glucose Reference Range is dependent on time and content of last meal. Glucose of more than 200 mg/dL in a nonstressed, ambulatory subject supports the diagnosis of Diabetes Mellitus. Glucose [Mass/volume] in Uri ne by Test stripOrdered By: Marilyn Stewart on 12-28-2024 Glucose Test strip (U) [Mass/Vol] Glucose [Mass/volume] in Urine by Test strip High Normal [facility] Hematocrit Auto (Bld) [Volum e fraction]Ordered By: Marilyn Stewart on 12-28-2024 Hematocrit (Bld) [Volume fraction] Hematocrit [Volume Fraction] of Blood by Automated count Low 34.0-46.4 [facility] Hemoglobin A1c/Hemoglobin.to himanshu in BloodOrdered By: Vinay Matta on 12-28-2024 HbA1c (Bld) [Mass fraction] Hemoglobin A1c percentage High 4.3-5.6 [facility] Comment on above: Increased risk for d iabetes: 5.7 - 6.4diabetes: >6.4glycemic control for adults with diabetes: <7.0 Hemoglobin Test strip Ql (U) Ordered By: Marilyn Stewart on 12-28-2024 Hemoglobin Ql (U) Hemoglobin [Presence ] in Urine by Test strip Negative [facility] Hemoglobin [Mass/volume] in BloodOrdered By: Marilyn Stewart on 12-28-2024 Hemoglobin (Bld) [Mass/Vol] Hemoglobin [Mass/volume] in Blood Low 11.8-15.4 [facility] Hemogram CBC Without Diffon 12-28-2024 Erythrocyte distribution width (RBC) [Ratio] 16.5 % High 11.9-15.3 [facility] Comment on above: Performed By: #### H EPATIC, HS TROP, BNP, BMP, CK, PTT, CBC, PT #### [facility] [address] Hematocrit (Bld) [Volume fraction] 31.9 % Low 34.0-46.4 [facility] Comment on above: Performed By: #### H EPATIC, HS TROP, BNP, BMP, CK, PTT, CBC, PT #### [address] Hemoglobin (Bld) [Mass/Vol] 11.4 g/dL Low 11.8-15.4 [facility] Comment on above: Performed By: #### H EPATIC, HS TROP, BNP, BMP, CK, PTT, CBC, PT #### [address] MCH (RBC) [Entitic mass] 30.3 pg Normal 24.7-34.3 [facility] Comment on above: Performed By: #### H EPATIC, HS TROP, BNP, BMP, CK, PTT, CBC, PT #### [address] MCV (RBC) [Entitic vol] 85.1 fL Normal 80-100 [facility] Comment on above: Performed By: #### H EPATIC, HS TROP, BNP, BMP, CK, PTT, CBC, PT #### [address] Mean Corpuscular HGB Conc 35.6 g/dL High 32.0-35.0 [facility] Comment on above: Performed By: #### H EPATIC, HS TROP, BNP, BMP, CK, PTT, CBC, PT #### [address] Platelet mean volume (Bld) [Entitic vol] 6.9 fL Normal 6.3-10.7 [facility] Comment on above: Result Comment: PERF ORMED BY: [place] [address] PATHOLOGIST SPECIAL MACHINE OPERATOR VEL GARCIA M.D. Performed By: #### H EPATIC, HS TROP, BNP, BMP, CK, PTT, CBC, PT #### [address] Platelets (Bld) [#/Vol] 148 10*3/uL Low 150-450 [facility] Comment on above: Performed By: #### H EPATIC, HS TROP, BNP, BMP, CK, PTT, CBC, PT #### [address] RBC (Bld) [#/Vol] 3.75 10*6/uL Normal 3.60-5.00 [facility] Comment on above: Performed By: #### H EPATIC, HS TROP, BNP, BMP, CK, PTT, CBC, PT #### [address] WBC (Bld) [#/Vol] 4.5 10*3/uL Normal 3.8-11.6 [facility] Comment on above: Performed By: #### H EPATIC, HS TROP, BNP, BMP, CK, PTT, CBC, PT #### [address] Hyaline casts [#/area] in Ur ine sediment by Automated countOrdered By: Marilyn Stewart on 12-28-2024 Hyaline casts Auto (Urine sed) [#/Area] Hyaline casts [#/area] in Urine sediment by Automated count 0-8 [facility] Iron [Mass/volume] in Serum or PlasmaOrdered By: Marilyn Stewart on 12-28-2024 Iron [Mass/Vol] Iron [Mass/volume] i n Serum or Plasma 50-212 [facility] Iron and TIBC Profileon 12-17 % Iron Saturation 25.1 % Normal 20-50 [facility] Comment on above: Performed By: #### H EPATIC, HS TROP, BNP, BMP, CK, PTT, CBC, PT #### [address] Iron [Mass/Vol] 90 ug/dL Normal 50-212 [facility] Comment on above: Performed By: #### H EPATIC, HS TROP, BNP, BMP, CK, PTT, CBC, PT #### [address] Total Iron Binding Capacity 358 ug/dL Normal 255-450 [facility] Comment on above: Performed By: #### H EPATIC, HS TROP, BNP, BMP, CK, PTT, CBC, PT #### [facility] [address] Transferrin [Mass/Vol] 256 mg/dL Normal 203-362 [facility] Comment on above: Performed By: #### H EPATIC, HS TROP, BNP, BMP, CK, PTT, CBC, PT #### [facility] [address] Ketones Test strip Ql (U)Ord ered By: Marilyn Stewart on 12-28-2024 Ketones Ql (U) Ketones [Presence] i n Urine by Test strip Negative [facility] Leukocyte esterase [Presence ] in Urine by Test stripOrdered By: Marilyn Stewart on 12-28-2024 Leukocyte esterase Test strip Ql (U) Leukocyte esterase [Presence] in Urine by Test strip Negative [facility] Leukocytes [#/area] in Urine sediment by Automated countOrdered By: Marilyn Stewart on 12-28-2024 WBC Auto (Urine sed) [#/Area] Leukocytes [#/area] in Urine sediment by Automated count High 0-4 [facility] Leukocytes [#/volume] correc remberto for nucleated erythrocytes in Blood by Automated counOrdered By: Marilyn Stewart on 12-28-2024 WBC corrected for nucl RBC Auto (Bld) [#/Vol] Leukocytes [#/volume] corrected for nucleated erythrocytes in Blood by Automated coun 3.8-11.6 [facility] Lipid Panelon 12-28-2024 Cholesterol [Mass/Vol] 107 mg/dL Low 140-200 [facility] Comment on above: Result Comment: Chol less than 200 mg/dl low risk Chol 201-239 mg/dl borderline risk Chol 240 mg/dl and greater high risk Performed By: #### H EPATIC, HS TROP, BNP, BMP, CK, PTT, CBC, PT #### [facility] [address] Cholesterol in HDL [Mass/Vol] 38 mg/dL Normal 23-92 [facility] Comment on above: Result Comment: HDL CHOL ATP-III CLASSIFICATION Cardiovascular Risk HDL > or equal to 60 mg/dL LOW HDL < 40 mg/dL HIGH Performed By: #### H EPATIC, HS TROP, BNP, BMP, CK, PTT, CBC, PT #### [facility] [address] Cholesterol.total/Cho lesterol in HDL [Mass ratio] 2.8 {ratio} Normal <5.0 [facility] Comment on above: Performed By: #### H EPATIC, HS TROP, BNP, BMP, CK, PTT, CBC, PT #### [facility] [address] LDL Cholesterol,Calculate d 44 mg/dL Normal 0-100 [facility] Comment on above: Result Comment: LDL ATP III CLASSIFICATION LDL less than 100 mg/dL Optimal LDL 100-129 mg/dL Near or above optimal LDL 130-159 mg/dL Borderline high LDL 160-189 mg/dL High LDL greater than 189 mg/dL Very high Performed By: #### H EPATIC, HS TROP, BNP, BMP, CK, PTT, CBC, PT #### [facility] [address] Triglyceride w/Reflex 124 mg/dL Normal 0-149 [facility] Comment on above: Result Comment: TRIG ATP III CLASSIFICATION TRIG less than 150 mg/dL Normal TRIG 150-199 mg/dL Borderline high TRIG 200-500 mg/dL High TRIG greater than 500 mg/dL Very high Standard traceable to the Center for Disease Conrtrol and Prevention (CDC) test method. Performed By: #### H EPATIC, HS TROP, BNP, BMP, CK, PTT, CBC, PT #### [facility] [address] VLDL CHOLESTEROL 24 mg/dL Normal [facility] Comment on above: Performed By: #### H EPATIC, HS TROP, BNP, BMP, CK, PTT, CBC, PT #### [facility] [address] MCH Auto (RBC) [Entitic mass ]Ordered By: Marilyn Stewart on 12-28-2024 MCH (RBC) [Entitic mass] MCH [Entitic mass] by Automated count 24.7-34.3 [facility] MCHC Auto (RBC) [Mass/Vol]Or dered By: Marilyn Stewart on 12-28-2024 MCHC (RBC) [Mass/Vol] MCHC [Mass/volume] by Automated count High 32.0-35.0 [facility] MCV Auto (RBC) [Entitic vol] Ordered By: Marilyn Stewart on 12-28-2024 MCV (RBC) [Entitic vol] MCV [Entitic volume] by Automated count 80-100 [facility] MM screening mammo BI w/CADo n 12-28-2024 MM screening mammo BI w/CAD [facility] [place] [address] [place] [address] Mammography Report Signed Patient: Anh Tejeda MR#: [id number] : 1950 Acct:[id number] Age/Sex: 73 / F ADM Date: 12/28/24 Loc: [place] Room: Type: [facility] Attending Dr: Referral Self Copies to: Vinay Matta DO SELF,REFERRAL Ordering Provider: SELF,REFERRAL Date of Service: 12/28/24 MM/MM screening mammo BI w/CAD: SCREENING BILATERAL Screening Full Field digital mammogram with 3-D imaging. Full field digital CC and MLO imaging performed. CAD utilized. COMPARISON: 06/16/2022 HISTORY: Annual screening BREAST COMPOSITION: Scattered fibroglandular densities of the breast parenchyma identified BREAST CALCIFICATIONS: Benign calcifications present. VASCULAR CALCIFICATIONS: None ARCHITECTURAL DISTORTION: None BREAST NODULE: None AXILLARY LYMPH NODES: Normal POSTSURGICAL CHANGES: None MM/MM screening mammo BI w/CAD IMPRESSION: No mammographic evidence of malignancy. Routine follow-up recommended in one year. RESULT CODE: 2 Benign Findings(s) DENSITY CODE: 2 (approximately 25-50% glandular) FOLLOW UP: 1YR THE FALSE-NEGATIVE RATE OF MAMMOGRAPHY IS APPROXIMATELY 10%. IMAGING OF A PALPABLE ABNORMALITY MUST BE BASED ON CLINICAL GROUNDS. PATIENT WAS ENTERED INTO A REMINDER SYSTEM WITH A TARGET DUE DATE FOR THE NEXT MAMMOGRAM. Impression dictated by: Sharad Robles M.D.12/28/2024 12:10 PM Dictation Location: [facility] Transcribed By: MT 12/28/24 1210 Dictated By: Sharad Robles DO 12/28/24 1204 Signed By: 12/28/24 1210 Normal [facility] Magnesiumon 12-28-2024 Magnesium [Mass/Vol] 1.2 mg/dL Low 1.9-2.7 [facility] Comment on above: Performed By: #### H EPATIC, HS TROP, BNP, BMP, CK, PTT, CBC, PT #### [facility] [address] Magnesium [Mass/volume] in S hilda or PlasmaOrdered By: Marilyn Stewart on 12-28-2024 Magnesium [Mass/Vol] Magnesium [Mass/vol ume] in Serum or Plasma Low 1.9-2.7 [facility] Mammography reportOrdered By : Sharad Robles on 12-28-2024 Diagnostic imaging study [facility] [place] [address] [place] [address] Mammography Report Signed Patient: Ahn Tejeda MR#: [id number] : 1950 Acct:[id number] Age/Sex: 73 / F ADM Date: 5 Loc: CO Room: Type: [facility] Attending Dr: Referral Self Copies to: Vinay Matta DO SELF,REFERRAL ~ Ordering Provider: SELF,REFERRAL Date of Service: 12/28/24 MM/MM screening mammo BI w/CAD: SCREENING BILATERAL Screening Full Field digital mammogram with 3-D imaging. Full field digital CC and MLO imaging performed. CAD utilized. COMPARISON: 06/16/2022 HISTORY: Annual screening BREAST COMPOSITION: Scattered fibroglandular densities of the breast parenchyma identified BREAST CALCIFICATIONS: Benign calcifications present. VASCULAR CALCIFICATIONS: None ARCHITECTURAL DISTORTION: None BREAST NODULE: None AXILLARY LYMPH NODES: Normal POSTSURGICAL CHANGES: None MM/MM screening mammo BI w/CAD IMPRESSION: No mammographic evidence of malignancy. Routine follow-up recommended in one year. RESULT CODE: 2 Benign Findings(s) DENSITY CODE: 2 (approximately 25-50% glandular) FOLLOW UP: 1YR THE FALSE-NEGATIVE RATE OF MAMMOGRAPHY IS APPROXIMATELY 10%. IMAGING OF A PALPABLE ABNORMALITY MUST BE BASED ON CLINICAL GROUNDS. PATIENT WAS ENTERED INTO A REMINDER SYSTEM WITH A TARGET DUE DATE FOR THE NEXT MAMMOGRAM. Impression dictated by: Sharad Robles M.D.12/28/2024 12:10 PM Dictation Location: [facility] Transcribed By: [facility] 12/28/24 1210 Dictated By: Sharad Robles DO 12/28/24 1204 Signed By: 12/28/24 1210 [facility] Mucus [Presence] in Urine by AutomatedOrdered By: Marilyn Stewart on 12-28-2024 Mucus Auto Ql (U) Mucus [Presence] in Urine by Automated [facility] Nitrite Test strip Ql (U)Ord ered By: Marilyn Stewart on 12-28-2024 Nitrite Ql (U) Nitrite [Presence] i n Urine by Test strip High Negative [facility] No Panel InformationOrdered By: Marilyn Stewart on 12-28-2024 Estimated GFR (CKD-EPI) 42.104 mL/Min [facility] Creatinine Clearance (Chem N/A [facility] Parathyrin.intact [Mass/volu me] in Serum or PlasmaOrdered By: Marilyn Stewart on 12-28-2024 Parathyrin.intact [Mass/Vol] Parathyrin.intact [Mass/volume] in Serum or Plasma [facility] Parathyroid Hormone Intacton 12-28-2024 Parathyroid Hormone Intact 46.7 pg/mL Normal [facility] Comment on above: Result Comment: PERF ORMED BY: [place] [address] PATHOLOGIST SPECIAL MACHINE OPERATOR VEL GARCIA M.D. Performed By: #### H EPATIC, HS TROP, BNP, BMP, CK, PTT, CBC, PT #### [facility] [address] Phosphate [Mass/volume] in S hilda or PlasmaOrdered By: Marilyn Stewart on 12-28-2024 Phosphate [Mass/Vol] Phosphate [Mass/vol ume] in Serum or Plasma 2.5-4.5 [facility] Platelet mean volume Auto (B ld) [Entitic vol]Ordered By: Marilyn Stewart on 12-28-2024 Platelet mean volume (Bld) [Entitic vol] Platelet mean volume [Entitic volume] in Blood by Automated count 6.3-10.7 [facility] Platelets Auto (Bld) [#/Vol] Ordered By: Marilyn Stewart on 12-28-2024 Platelets (Bld) [#/Vol] Platelets [#/volume] in Blood by Automated count Low 150-450 [facility] Potassium [Moles/volume] in Serum or PlasmaOrdered By: Marilyn Stewart on 12-28-2024 Potassium [Moles/Vol] Potassium [Moles/v olume] in Serum or Plasma 3.5-5.1 [facility] Protein Creat Ratio Ur Rando mon 12-28-2024 Creatinine, Urine (Random) 74.00 mg/dL Normal [facility] Comment on above: Result Comment: No r eference range established Performed By: #### H EPATIC, HS TROP, BNP, BMP, CK, PTT, CBC, PT #### [address] Protein (U) [Mass/Vol] 23 mg/dL High 0-9 [facility] Comment on above: Performed By: #### H EPATIC, HS TROP, BNP, BMP, CK, PTT, CBC, PT #### [address] Urine Protein/Creatinine Ratio 311 mg/g{Cre} High 0-200 [facility] Comment on above: Result Comment: PERF ORMED BY: [place] [address] PATHOLOGIST SPECIAL MACHINE OPERATOR VEL GARCIA M.D. Performed By: #### H EPATIC, HS TROP, BNP, BMP, CK, PTT, CBC, PT #### [address] Protein Test strip (U) [Mass /Vol]Ordered By: Marilyn Stewart on 12-28-2024 Protein (U) [Mass/Vol] Protein [Mass/volume] in Urine by Test strip Negative [facility] Protein [Mass/volume] in Ser um or PlasmaOrdered By: Marilyn Stewart on 12-28-2024 Protein [Mass/Vol] Protein [Mass/volume ] in Serum or Plasma Low 6.4-8.9 [facility] Protein [Mass/volume] in Uri neOrdered By: Marilyn Stewart on 12-28-2024 Protein (U) [Mass/Vol] Protein [Mass/volume] in Urine High 0-9 [facility] RBC Auto (Bld) [#/Vol]Ordere d By: Marilyn Stewart on 12-28-2024 RBC (Bld) [#/Vol] Erythrocytes [#/volu me] in Blood by Automated count 3.60-5.00 [facility] Renal Function Panelon 12-28 Phosphate [Mass/Vol] 4.1 mg/dL Normal 2.5-4.5 [facility] Comment on above: Performed By: #### H EPATIC, HS TROP, BNP, BMP, CK, PTT, CBC, PT #### [facility] [address] Serum or plasma albumin/glob ulin mass ratioOrdered By: Marilyn Stewart on 12-28-2024 Albumin/Globulin [Mass ratio] Serum or plasma albumin/globulin mass ratio [facility] Serum or plasma anion gap de terminationOrdered By: Marilyn Stewart on 12-28-2024 Anion gap [Moles/Vol] Serum or plasma an ion gap determination 6.0-15.0 [facility] Serum or plasma iron binding capacity measurement (mass/volume)Ordered By: Marilyn Stewart on 12-28-2024 Iron binding capacity [Mass/Vol] Iron binding capacity [Mass/volume] in Serum or Plasma 255-450 [facility] Serum or plasma iron saturat ion measurement (mass fraction)Ordered By: Marilyn Stewart on 12-28-2024 Iron saturation [Mass fraction] Iron saturation [Mass Fraction] in Serum or Plasma 20-50 [facility] Serum or plasma total choles terol/high density lipoprotein (HDL) cholesterol mass ratOrdered By: Marilyn Stewart on 12-28-2024 Cholesterol.total/Cho lesterol in HDL [Mass ratio] Serum or plasma total cholesterol/high density lipoprotein (HDL) cholesterol mass rat <5.0 [facility] Sodium [Moles/volume] in Ser um or PlasmaOrdered By: Marilyn Stewart on 12-28-2024 Sodium [Moles/Vol] Sodium [Moles/volume ] in Serum or Plasma 136-145 [facility] Specific gravity Test strip (U) [Rel density]Ordered By: Marilyn Stewart on 12-28-2024 Specific gravity (U) [Rel density] Specific gravity of Urine by Test strip 1.001-1.030 [facility] Transferrin [Mass/volume] in Serum or PlasmaOrdered By: Marilyn Stewart on 12-28-2024 Transferrin [Mass/Vol] Transferrin [Mass/volume] in Serum or Plasma 203-362 [facility] Triglyceride [Mass/volume] i n Serum or PlasmaOrdered By: Marilyn Stewart on 12-28-2024 Triglyceride [Mass/Vol] Triglyceride [Mass/volume] in Serum or Plasma 0-149 [facility] Comment on above: TRIG ATP III CLASSIF ICATIONTRIG less than 150 mg/dL NormalTRIG 150-199 mg/dL Borderline highTRIG 200-500 mg/dL High TRIG greater than 500 mg/dL Very highStandard traceable to the Center for Disease Conrtrol and Prevention (CDC) test method. Urate [Mass/volume] in Serum or PlasmaOrdered By: Marilyn Stewart on 12-28-2024 Urate [Mass/Vol] Urate [Mass/volume] in Serum or Plasma 2.3-6.6 [facility] Urea nitrogen [Mass/volume] in Serum or PlasmaOrdered By: Marilyn Stewart on 12-28-2024 Urea nitrogen [Mass/Vol] Urea nitrogen [Mass/volume] in Serum or Plasma High 7-25 [facility] Uric Acidon 12-28-2024 Urate [Mass/Vol] 3.8 mg/dL Normal 2.3-6.6 [facility] Comment on above: Performed By: #### H EPATIC, HS TROP, BNP, BMP, CK, PTT, CBC, PT #### [facility] [address] Urine Cultureon 12-28-2024 Bacteria identified Cx Nom (U) ORGANISM: Escherichia coli (O:ESCCOL) [place] Count >100,000 Aerobic JUNAID Charge (NMIC56) SUSCEPTIBILITY [...] RESISTANT TO ALL B-LACTAM DRUGS. PERFORMED BY: [place] [address] PATHOLOGIST SPECIAL MACHINE OPERATOR VEL GARCIA M.D. Normal [facility] Comment on above: Performed By: #### H EPATIC, HS TROP, BNP, BMP, CK, PTT, CBC, PT #### [address] Urine cultureOrdered By: John Stewart on 12-28-2024 Bacteria identified Cx Nom (U) Escherichia coli Abnormal [facility] Urine protein/creatinine rat ioOrdered By: Marilyn Stewart on 12-28-2024 Protein/Creatinine (U) [Ratio] Urine protein/creatinine ratio High 0-200 [facility] Urobilinogen Test strip (U) [Mass/Vol]Ordered By: Marilyn Stewart on 12-28-2024 Urobilinogen (U) [Mass/Vol] Urobilinogen [Mass/volume] in Urine by Test strip Normal [facility] Vitamin D 25 Hydroxy Totalon 12-28-2024 Vitamin D 25 Hydroxy Total 58.1 ng/mL Normal 30-100 [facility] Comment on above: Result Comment: CHI MIN D STATUS 25(OH)VITAMIN D RANGE (ng/mL) Deficient <20 Insufficient 20 to <30 Sufficient 30 to 100 Reference: Albert Campo, Beltran LACKEY, et al. Evaluation,treatment, and prevention of vitamin D deficiency; an Endocrine Society clinical practice guideline. JCEM. 2010; 96(7):1911-. PERFORMED BY: [place] [address] PATHOLOGIST SPECIAL MACHINE OPERATOR VEL GARCIA M.D. Performed By: #### H EPATIC, HS TROP, BNP, BMP, CK, PTT, CBC, PT #### [address] Vitamin D+Metabolites [Mass/ volume] in Serum or PlasmaOrdered By: Marilyn Stewart on 12-28-2024 Vitamin D+Metabolites [Mass/Vol] Vitamin D+Metabolites [Mass/volume] in Serum or Plasma 30-100 [facility] Comment on above: VITAMIN D STATUS 25( OH)VITAMIN D RANGE (ng/mL) Deficient <20 Insufficient 20 to <30Sufficient 30 to 100Reference: Albert Campo, Beltran LACKEY, et al. Evaluation,treatment, and prevention of vitamin D deficiency; an Endocrine Society clinical practice guideline. JCEM. 2010; 96(7):1911-30. pH Test strip (U)Ordered By: Marilyn Stewart on 12-28-2024 pH (U) pH of Urine by Test strip 5.0-9.0 [facility] X-ray reportOrdered By: Jose D Fox on 12-15-2024 Study report [address] [address] XRay Report Signed Patient: Anh Tejeda MR#: [id number] : 1950 Acct:[id number] Age/Sex: 73 / F ADM Date: 5 Loc: XD Room: Type: REG CLI Attending Dr: Vinay Matta DO Copies to: Vinay Matta DO~ Ordering Provider: Vinay Matta DO Date of Service: 12/15/24 XR/XR lumbar spine 6V w bending: LUMBAR DJD,RADICULOPATHY LUMBAR SPINE - 8 views CLINICAL HISTORY: Lumbar DJD radiculopathy sciatica and legs. COMPARISON: None FINDINGS: Scoliosis is present with diffuse moderate degenerative disc disease with endplate and facet joint degenerative changes. No pathological motion on flexion or extension views. SI joints demonstrate degenerative change. XR/XR lumbar spine 6V w bending IMPRESSION: SCOLIOSIS WITH DIFFUSE MODERATE DEGENERATIVE DISC DISEASE. Impression dictated by: René Fox Jr., D.OArpan12/15/2024 4:14 PM Dictation Location: [place] [address] Transcribed By: [facility] 12/15/24 161 Dictated By: René Fox Jr, DO 12/15/24 161 Signed By: 12/15/24 1614 [facility] XR lumbar spine 6V w bending on 12-15-2024 XR lumbar spine 6V w bending [address] [address] XRay Report Signed Patient: Anh Tejeda MR#: [id number] : 1950 Acct:[id number] Age/Sex: 73 / F ADM Date: 12/15/24 Loc: XD Room: Type: REG CLI Attending Dr: Vinay Matta DO Copies to: Vinay Matta DO Ordering Provider: Vinay Matta DO Date of Service: 12/15/24 XR/XR lumbar spine 6V w bending: LUMBAR DJD,RADICULOPATHY LUMBAR SPINE - 8 views CLINICAL HISTORY: Lumbar DJD radiculopathy sciatica and legs. COMPARISON: None FINDINGS: Scoliosis is present with diffuse moderate degenerative disc disease with endplate and facet joint degenerative changes. No pathological motion on flexion or extension views. SI joints demonstrate degenerative change. XR/XR lumbar spine 6V w bending IMPRESSION: SCOLIOSIS WITH DIFFUSE MODERATE DEGENERATIVE DISC DISEASE. Impression dictated by: René Fox Jr., D.OArpan12/15/2024 4:14 PM Dictation Location: [facility] Transcribed By: MT 12/15/241613 Dictated By: René Fox Jr, DO 12/15/241613 Signed By: 12/15/241613 Normal [facility] Afshin 10-10-2024 CNPN Telephone (HEMASA) ANH TEJEDA ([id number]) 1950 F Date Time Provider Department 10/10/24 DAKSHA BRIDGES During your visit today, we recorded the following information about you: Daksha Bridges PA-C 10/10/2024 11:45 AM Signed Please call with normal iron levels TROY Onofre Natalie, RN 10/10/2024 12:35 PM Signed Pt informed of MM message, once verified, using 2 patient identifiers. Patient denies any questions, needs or concerns at this time. Appointment verified. Samantha Mcmahan RN Allergies As of Date: 10/10/2024 Noted Allergy Reaction ACETAMINOPHEN-CODEINE 10/01/2022 14 - Other: See Comments Comments: pt states she is unwilling to try even plain tylenol after this experience even though she states she took tylenol prior to this and had no problems TYLENOL #3 (CODEINE) 09/26/2022 14 - Other: See Comments Comments: Upset stomach Date Reviewed: 10/10/2024 Reviewed by: Daksha Bridges PA-C - Fully Assessed Reason for Visit: Results [95] Prescriptions as of 10/10/2024 - diphenhydrAMINE HCl (CHILDREN'S BENADRYL ALLERGY) 12.5 mg chewable tablet 25 mg. - FARXIGA 10 mg tablet TAKE 1 TABLET BY MOUTH EVERYDAY FOR DIABETES - resmetirom (REZDIFFRA) 80 mg tablet once daily. - allopurinol (ZYLOPRIM) 300 mg tablet 300 mg. - JANUVIA 50 mg tablet Take 1 tablet by mouth every afternoon. - albuterol HFA (PROVENTIL HFA, VENTOLIN HFA) 90 mcg/actuation inhaler INHALE 2 PUFFS BY MOUTH EVERY 4 HOURS NEEDED FOR COUGH - magnesium oxide 400 mg magnesium tab Take 1 tablet by mouth once daily. - ASCORBIC ACID, [...] 1,000 Units by mouth once daily. - gabapentin (NEURONTIN) 300 mg capsule Take 300 mg by mouth daily at bedtime. - lisinopril-hydroCHLOROthiaz jennifer (PRINZIDE,ZESTORETIC) 10-12.5 mg per tablet Take 1 tablet by mouth once daily. - glimepiride (AMARYL) 2 mg tablet Take 2 mg by mouth daily with breakfast. - omeprazole (PRILOSEC) 20 mg capsule Take 20 mg by mouth once daily. - rOPINIRole (REQUIP) 0.5 mg tablet Take 0.5 mg by mouth twice daily. Problem List As Of Date 10/10/2024 Noted Resolved Iron deficiency anemia due to chronic blood los*10/03/2022 Stage 3b chronic kidney disease (HCC) [N18.32] 01/29/2024 Encounter Status:Closed by SAMANTHA MCMAHAN on 10/10/24 Normal [facility] CBC W Auto Differential pane l (Bld)on 10-07-2024 Basophils (Bld) [#/Vol] 10*3/uL Normal <0.11 [facility] Comment on above: Order Comment: Speci men Type: BLOOD SPECIMEN Ordering Facility: [facility] Address: [address], [place] [address] Performed By: #### 5 7021-8, 24838-6 #### [facility] CLIA [id number] [address] [place] [address] Basophils/100 WBC (Bld) 0.4 % Normal [facility] Comment on above: Order Comment: Speci men Type: BLOOD SPECIMEN Ordering Facility: [facility] Address: [address] [id number] Performed By: #### 5 7021-8, 29805-5 #### [facility] CLIA [id number] [address] [place] [address] 13172 Differential cell count method Nom (Bld) Auto Normal [facility] Comment on above: Order Comment: Speci men Type: BLOOD SPECIMEN Ordering Facility: [facility] Address: [address] [place] [address] Performed By: #### 5 7021-8, 54271-4 #### [facility] CLIA [id number] [address] [place] [address] 72045 Eosinophils (Bld) [#/Vol] 0.17 10*3/uL Normal <0.46 [facility] Comment on above: Order Comment: Speci men Type: BLOOD SPECIMEN Ordering Facility: [facility] Address: [address] [place] [address] Performed By: #### 5 7021-8, 22706-9 #### [facility] CLIA [id number] [address] [place] [address] 64244 Eosinophils/100 WBC (Bld) 3.3 % Normal [facility] Comment on above: Order Comment: Speci men Type: BLOOD SPECIMEN Ordering Facility: [facility] Address: [address] [place] [address] Performed By: #### 5 7021-8, 22559-4 #### [facility] CLIA [id number] [address] [place] [address] [place] [address] Erythrocyte distribution width (RBC) [Ratio] 15.1 % High 11.5-15.0 [facility] Comment on above: Order Comment: Speci men Type: BLOOD SPECIMEN Ordering Facility: [facility] Address: [address] [place] [address] Performed By: #### 5 7021-8, 94261-0 #### [facility] CLIA [id number] [address] [place] [address] 33355 Hematocrit (Bld) [Volume fraction] 33.0 % Low 36.0-46.0 [facility] Comment on above: Order Comment: Speci men Type: BLOOD SPECIMEN Ordering Facility: [facility] Address: [address] [place] [address] Performed By: #### 5 7021-8, 72386-4 #### [facility] CLIA [id number] [address] [place] [address] 86449 Hemoglobin (Bld) [Mass/Vol] 11.6 g/dL Normal 11.5-15.5 [facility] Comment on above: Order Comment: Speci men Type: BLOOD SPECIMEN Ordering Facility: [facility] Address: [address] [place] [address] Performed By: #### 5 7021-8, 50057-5 #### [facility] CLIA [id number] [address] [place] [address]147 Immature granulocytes (Bld) [#/Vol] 10*3/uL Normal <0.10 [facility] Comment on above: Order Comment: Speci men Type: BLOOD SPECIMEN Ordering Facility: [facility] Address: [address] [place] [address] Performed By: #### 5 7021-8, 53310-9 #### [facility] CLIA [id number] [address] [place] [address] 37831 Immature granulocytes/100 WBC (Bld) 0.4 % Normal [facility] Comment on above: Order Comment: Speci men Type: BLOOD SPECIMEN Ordering Facility: [facility] Address: [address] [place] [address] Performed By: #### 5 7021-8, 53579-9 #### [facility] CLIA [id number] [address] [place] [address] 41800 Lymphocytes (Bld) [#/Vol] 1.32 10*3/uL Normal 1.00-4.00 [facility] Comment on above: Order Comment: Speci men Type: BLOOD SPECIMEN Ordering Facility: [facility] Address: [address] [place] [address] Performed By: #### 5 7021-8, 47796-0 #### [facility] CLIA [id number] [address] [place] [address] 44493 Lymphocytes/100 WBC (Bld) 25.5 % Normal [facility] Comment on above: Order Comment: Speci men Type: BLOOD SPECIMEN Ordering Facility: [facility] Address: [address] [place] [address] Performed By: #### 5 7021-8, 73841-5 #### [facility] CLIA [id number] [address] [place] [address] 21351 MCH (RBC) [Entitic mass] 29.7 pg Normal 26.0-34.0 [facility] Comment on above: Order Comment: Speci men Type: BLOOD SPECIMEN Ordering Facility: [facility] Address: [address] [place] [address] Performed By: #### 5 7021-8, 52351-6 #### [facility] CLIA [id number] [address] [place] [address] 11828 MCHC (RBC) [Mass/Vol] 35.2 g/dL Normal 30.5-36.0 [facility] Comment on above: Order Comment: Speci men Type: BLOOD SPECIMEN Ordering Facility: [facility] Address: [address] [place] [address] Performed By: #### 5 7021-8, 90426-9 #### [facility] CLIA [id number] [address] [place] [address] 18430 MCV (RBC) [Entitic vol] 84.6 fL Normal 80.0-100.0 [facility] Comment on above: Order Comment: Speci men Type: BLOOD SPECIMEN Ordering Facility: [facility] Address: [address] [place] [address] Performed By: #### 5 7021-8, 14450-1 #### [facility] CLIA [id number] [address] [place] [address] 35815 Monocytes (Bld) [#/Vol] 0.28 10*3/uL Normal <0.87 [facility] Comment on above: Order Comment: Speci men Type: BLOOD SPECIMEN Ordering Facility: [facility] Address: [address] [place] [address] Performed By: #### 5 7021-8, 79490-4 #### [facility] CLIA [id number] [address] [place] [address] 68561 Monocytes/100 WBC (Bld) 5.4 % Normal [facility] Comment on above: Order Comment: Speci men Type: BLOOD SPECIMEN Ordering Facility: [facility] Address: [address] [place] [address] 26569 Performed By: #### 5 7021-8, 98729-5 #### [facility] CLIA [id number] [address] [place] [address] 51253 Neutrophils (Bld) [#/Vol] 3.37 10*3/uL Normal 1.45-7.50 [facility] Comment on above: Order Comment: Speci men Type: BLOOD SPECIMEN Ordering Facility: [facility] Address: [address] [place] [address] Performed By: #### 5 7021-8, 83857-4 #### [facility] CLIA [id number] [address] [place] [address] 28765 Neutrophils/100 WBC (Bld) 65.0 % Normal [facility] Comment on above: Order Comment: Speci men Type: BLOOD SPECIMEN Ordering Facility: [facility] Address: [address] [place] [address] Performed By: #### 5 7021-8, 08196-5 #### [facility] CLIA [id number] [address] [place] [address] 30892 Nucleated RBC (Bld) [#/Vol] 10*3/uL Normal <0.01 [facility] Comment on above: Order Comment: Speci men Type: BLOOD SPECIMEN Ordering Facility: [facility] Address: [address] [place] [address] Performed By: #### 5 7021-8, 71941-8 #### [facility] CLIA [id number] [address] [place] [address] 58380 Nucleated RBC/100 WBC (Bld) [Ratio] 0.0 /100 WBC Normal [facility] Comment on above: Order Comment: Speci men Type: BLOOD SPECIMEN Ordering Facility: [facility] Address: [address] [place] [address] Performed By: #### 5 7021-8, 08242-2 #### [facility] CLIA [id number] [address] [place] [address] 92348 Platelet mean volume (Bld) [Entitic vol] 9.8 fL Normal 9.0-12.7 [facility] Comment on above: Order Comment: Speci men Type: BLOOD SPECIMEN Ordering Facility: [facility] Address: [address] [place] [address] Performed By: #### 5 7021-8, 60050-2 #### [facility] CLIA [id number] [address] [place] [address] 06390 Platelets (Bld) [#/Vol] 126 10*3/uL Low 150-400 [facility] Comment on above: Order Comment: Speci men Type: BLOOD SPECIMEN Ordering Facility: [facility] Address: [address] [place] [address] Result Comment: Resu lts checked and verified.No clot detected. Performed By: #### 5 7021-8, 02020-9 #### [facility] CLIA [id number] [address] [place] [address] RBC (Bld) [#/Vol] 3.90 10*6/uL Normal 3.90-5.20 [facility] Comment on above: Order Comment: Speci men Type: BLOOD SPECIMEN Ordering Facility: [facility] Address: [address] [place] [address] Performed By: #### 5 7021-8, 43998-9 #### [facility] CLIA [id number] [address] [place] [address] 56895 WBC (Bld) [#/Vol] 5.18 10*3/uL Normal 3.70-11.00 [facility] Comment on above: Order Comment: Speci men Type: BLOOD SPECIMEN Ordering Facility: [facility] Address: [address] [place] [address] Performed By: #### 5 7021-8, 23929-3 #### [facility] CLIA [id number] [address] [place] [address] 43125 CNOVSPon 10-07-2024 CNOVSP Visit (SP) Office (H EMASA) ANH TEJEDA ([id number]) 1950 F Date Time Provider Department 10/07/24 2:30 PM DAKSHA BRIDGES During your visit today, we recorded the following information about you: Temperature Pulse Respiration Blood pressure 97.1 degrees 81/minute 18/minute 144/75 Weight Height 96.7 kg 1.58 m Daksha Bridges PA-C 10/07/2024 2:56 PM Signed Hematology Progress Note PATIENT NAME: Anhivelisse Tejeda CLINIC NO.: [id number] ATTENDING PHYSICIAN: Henry Walker MD DATE OF SERVICE: 10/07/2024 This note was copied from prior heme/onc encounter from 07/15/2024. The patient's medications, allergies, past medical/surgical hx, family hx, ROS, and physical exam have all been reviewed and updated as appropriate. The interval history and assessment/plan content have been modified and are specific to today's (10/07/2024) purpose for the visit. CHIEF COMPLAINT: Follow up Diagnosis: NAINA Treatment: Venofer x 3 doses 10/2022, again in January 2024 Interval History: Anh returns for follow up. She isn't feeling too bad . She is now on rezdiffra for her liver, but it is causing her to itch. Her doctor is having use benadryl for it and it is helping. Her energy level is fair. No shortness of breath or dizziness. Overall she feels pretty good. Current Outpatient Medications Medication Sig FARXIGA 10 mg tablet TAKE 1 TABLET BY MOUTH EVERYDAY FOR DIABETES resmetirom (REZDIFFRA) 80 mg tablet once daily. allopurinol (ZYLOPRIM) 300 mg tablet 300 mg. JANUVIA 50 mg tablet Take 1 tablet by mouth every afternoon. albuterol HFA (PROVENTIL HFA, VENTOLIN HFA) 90 mcg/actuation inhaler INHALE 2 PUFFS BY MOUTH EVERY 4 HOURS NEEDED FOR COUGH magnesium oxide 400 mg magnesium tab Take [...] malaise or fevers. No night sweats. +fatigue worse since starting farxiga HEENT: Negative for headaches, No changes in [...] of hands/feet. No weakness. PHYSICAL EXAMINATION: BP 144/75 Pulse 81 Temp 36.2 ?C (97.1 ?F) (Temporal) Resp 18 Ht 158 cm (5' 2.21 ) Wt 96.7 kg (213 lb 3 oz) SpO2 95% BMI 38.74 kg/m? ECOG PS: 1 General: Alert and oriented, no distress, pleasant and cooperative. Heart: Regular, normal S1 and S2, no murmurs, rubs, or gallops Lungs: Clear to auscultation bilaterally Abdomen: Benign Extremities: (more content not included)... Normal [facility] metabolic 2000 panelon 10-07-2024 Albumin [Mass/Vol] 3.9 g/dL Normal 3.9-4.9 [facility] Comment on above: Order Comment: Speci men Type: BLOOD SPECIMEN Ordering Facility: [facility] Address: [address] [id number] Performed By: #### 5 7021-8, 24897-0 #### [facility] CLIA [id number] [address] [place] [address] 04134 ALP [Catalytic activity/Vol] 182 U/L High 34-123 [facility] Comment on above: Order Comment: Speci men Type: BLOOD SPECIMEN Ordering Facility: [facility] Address: [address] [place], [place] [address] Performed By: #### 5 7021-8, 68742-6 #### [facility] CLIA [id number] [address] [place] [address] 70331 ALT [Catalytic activity/Vol] 17 U/L Normal 7-38 [facility] Comment on above: Order Comment: Speci men Type: BLOOD SPECIMEN Ordering Facility: [facility] Address: [address] [place] [address] Performed By: #### 5 7021-8, 95599-3 #### [facility] CLIA [id number] [address] [place] [address] 87745 Anion gap [Moles/Vol] 11 mmol/L Normal 8-15 [facility] Comment on above: Order Comment: Speci men Type: BLOOD SPECIMEN Ordering Facility: [facility] Address: [address] [place] [address] Performed By: #### 5 7021-8, 06602-8 #### [facility] CLIA [id number] [address] [place] [address] 69449 AST [Catalytic activity/Vol] 21 U/L Normal 13-35 [facility] Comment on above: Order Comment: Speci men Type: BLOOD SPECIMEN Ordering Facility: [facility] Address: [address] [place] [address]60 Performed By: #### 5 7021-8, 80974-7 #### [facility] CLIA [id number] [address] [place] [address] Bilirubin [Mass/Vol] 0.6 mg/dL Normal 0.2-1.3 [facility] Comment on above: Order Comment: Speci men Type: BLOOD SPECIMEN Ordering Facility: [facility] Address: [address] [place] [address] Performed By: #### 5 7021-8, 89157-3 #### [facility] CLIA [id number] [address] [place] [address] Calcium [Mass/Vol] 9.1 mg/dL Normal 8.5-10.2 [facility] Comment on above: Order Comment: Speci men Type: BLOOD SPECIMEN Ordering Facility: [facility] Address: [address] [place] [address] Performed By: #### 5 7021-8, 72361-6 #### [facility] CLIA [id number] [address] [place] [address] 51584 Chloride [Moles/Vol] 99 mmol/L Normal 98-107 [facility] Comment on above: Order Comment: Speci men Type: BLOOD SPECIMEN Ordering Facility: [facility] Address: [address] [place], [place] [address] Performed By: #### 5 7021-8, 96722-9 #### [facility] CLIA [id number] [address] [place] [address] 89833 CO2 [Moles/Vol] 27 mmol/L Normal 22-30 [facility] Comment on above: Order Comment: Speci men Type: BLOOD SPECIMEN Ordering Facility: [facility] Address: [address] [place], [place] [address] Performed By: #### 5 7021-8, 29698-7 #### [facility] CLIA [id number] [address] [place] [address] Creatinine [Mass/Vol] 1.33 mg/dL High 0.58-0.96 [facility] Comment on above: Order Comment: Patricia tarango Type: BLOOD SPECIMEN Ordering Facility: [facility] Address: [address] [place] [address] Performed By: #### 5 7021-8, 85001-9 #### [facility] CLIA [id number] [address] [place] [address] 08433 Creatinine and Glomerular filtration rate.predicted panel (S/P/Bld) 42 mL/min/1.73m??? Low >=60 [facility] Comment on above: Order Comment: Patricia tarango Type: BLOOD SPECIMEN Ordering Facility: [facility] Address: [address] [place] [address] Result Comment: Maru mated Glomerular Filtration Rate [...] reflect actual GFR. Performed By: #### 5 7021-8, 98240-1 #### [facility] CLIA [id number] [address] [place] [address] 59743 Glucose [Mass/Vol] 361 mg/dL High 74-99 [facility] Comment on above: Order Comment: Patricia tarango Type: BLOOD SPECIMEN Ordering Facility: [facility] Address: [address] [place] [address] Result Comment: The [place] Diabetes Association (ADA) provides guidance for cutoff [...] Standards of Medical Care in Diabetes 2016, [place] [employer] Association. Diabetes Care. 2016.39(Suppl 1). Performed By: #### 5 7021-8, 78629-7 #### [facility] CLIA [id number] [address] [place] [address] Potassium [Moles/Vol] 4.7 mmol/L Normal 3.7-5.1 [facility] Comment on above: Order Comment: Speci men Type: BLOOD SPECIMEN Ordering Facility: [facility] Address: [address] [place] [address] Performed By: #### 5 7021-8, 30285-4 #### [facility] CLIA [id number] [address] [place] [address] 35864 Protein [Mass/Vol] 6.4 g/dL Normal 6.3-8.0 [facility] Comment on above: Order Comment: Speci men Type: BLOOD SPECIMEN Ordering Facility: [facility] Address: [address] [place] [address] Performed By: #### 5 7021-8, 06928-0 #### [facility] CLIA [id number] [address] [place] [address] 39079 Sodium [Moles/Vol] 137 mmol/L Normal 136-144 [facility] Comment on above: Order Comment: Speci men Type: BLOOD SPECIMEN Ordering Facility: [facility] Address: [address] [place] [address] Performed By: #### 5 7021-8, 03377-9 #### [facility] CLIA [id number] [address] [place] [address] 33214 Urea nitrogen [Mass/Vol] 33 mg/dL High 7-21 [facility] Comment on above: Order Comment: Speci men Type: BLOOD SPECIMEN Ordering Facility: [facility] Address: [address] [id number] Performed By: #### 5 7021-8, 74407-8 #### [facility] CLIA [id number] [address] [place] [address] 36841 Ferritin SerPl-mCncon 2023 Ferritin [Mass/Vol] 528.0 ng/mL High 14.7-205.1 [facility] Comment on above: Order Comment: Speci men Type: BLOOD SPECIMEN Ordering Facility: [facility] Address: [address] [place] [address] Performed By: #### 5 7021-8, 27579-2 #### [facility] CLIA [id number] [address] [place] [address] 95729 Iron and Iron binding capaci ty panelon 10-07-2024 Iron [Mass/Vol] 64 ug/dL Normal 41-186 [facility] Comment on above: Order Comment: Speci men Type: BLOOD SPECIMEN Ordering Facility: [facility] Address: [address] [place] [address] Performed By: #### 5 7021-8, 53166-5 #### [facility] CLIA [id number] [address] [place] [address] 68902 Iron binding capacity [Mass/Vol] 331 ug/dL Normal 232-386 [facility] Comment on above: Order Comment: Speci men Type: BLOOD SPECIMEN Ordering Facility: [facility] Address: [address] [place] [address] Performed By: #### 5 7021-8, 22405-2 #### [facility] CLIA [id number] [address] [place] [address] 53763 Iron/TIBC [Molar ratio] 19.3 % Normal 15.0-57.0 [facility] Comment on above: Order Comment: Speci men Type: BLOOD SPECIMEN Ordering Facility: [facility] Address: [address] [place] [address] Performed By: #### 5 7021-8, 07670-4 #### [facility] CLIA [id number] [address] [place] [address] 13708 Retics #on 10-07-2024 Reticulocytes (Bld) [#/Vol] 0.88341 10*3/uL High 0.018-0.100 [facility] Comment on above: Order Comment: Speci men Type: BLOOD SPECIMEN Ordering Facility: [facility] Address: [address] [place] [address]83 Performed By: #### 5 7021-8, 21979-9 #### [facility] CLIA [id number] [address] [place] [address] Reticulocytes (Bld) [#/Vol]o n 10-07-2024 Reticulocytes/100 RBC (Bld) 3.5 % High 0.4-2.0 [facility] Comment on above: Order Comment: Speci men Type: BLOOD SPECIMEN Ordering Facility: [facility] Address: [address] [place], [place] [address] [phone] Performed By: #### 5 7021-8, 16570-7 #### [facility] CLIA [id number] [address] [place] [address]39 Ambulatory Visit Summaryon 11-29-2023 Ambulatory Visit Summary Ambulatory Visit Summary ANH TEJEDA :1950 Visit Date:09/29/2024 Ambulatory Visit Instructions Your Diagnosis Liver fibrosis Weight loss Anemia Chronic GERD Diabetes Metabolic syndrome Obesity due to excess calories Itching Your Care Team Attending Physician - Verónica Ugarte MD Primary Care Physician - VINAY MATTA DO This Is Your Medications List diphenhydrAMINE (Benadryl 12.5 mg oral tablet, chewable) Contact prescribing physician if questions or concerns Non-Formulary Medication (Magnesium) allopurinol (allopurinol 100 mg Tab) ascorbic acid (ascorbic acid 500 mg Tab) aspirin (aspirin 81 mg Oral EC Tab) atenolol (atenolol 50 mg Tab) atorvastatin (atorvastatin 20 mg Tab) calcium carbonate-magnesium carbonate (MagneBind 300 oral tablet) cholecalciferol (cholecalciferol 1000 intl units oral tablet) cyanocobalamin (Vitamin B12) gabapentin (gabapentin 300 mg Cap) glimepiride (glimepiride 2 mg Tab) hydrochlorothiazide-lisinop ril (hydrochlorothiazide-lisino pril 12.5 mg-20 mg Tab) omeprazole (omeprazole 20 mg Cap-DR) resmetirom (Rezdiffra 80 mg oral tablet) ropinirole (ropinirole 0.5 mg Tab) sitagliptin (Januvia 50 mg Tab) Procedures Performed Carpal tunnel (02/29/2024), Colonoscopy (06/12/2022), Esophagogastroduodenoscopy (06/12/2022), Scar management. Discharge Vitals Heart Rate (Peripheral) 74 Blood Pressure 129/77 Height 160 cm Height 63 in Weight 96.7 kg Weight 213.187 lb BMI 37.77 Medications What How Much When Why Instructions New diphenhydrAMINE (Benadryl 12.5 mg oral tablet, chewable) 2 Tablets Chewed 3 times a day as needed for for itching Liver fibrosis Weight loss Anemia Chronic GERD Diabetes Metabolic syndrome Obesity due to excess calories Pickup at [facility] #[id number] Unchanged allopurinol (allopurinol 100 mg Tab) 1 [...] or concerns Unchanged omeprazole (omeprazole 20 mg Timothy-) Contact prescribing physician if questions or concerns Unchanged resmetirom (Rezdiffra 80 mg oral tablet) Contact prescribing physician if questions or concerns Unchanged ropinirole (ropinirole 0.5 mg Tab) 2 Tablets By Mouth At bedtime Contact prescribing physician if questions or concerns Unchanged sitagliptin (Januvia 50 mg Tab) Contact prescribing physician if questions or concerns Pharmacy Information [id number]: [address] [place], [place] [id number] [phone] Allergies Tylenol with Codeine #3 (Upset stomach) codeine (Unknown, Dizziness) Problems Ongoing - Any problem that you are currently receiving treatment for. Anemia Anemia due to GI blood loss B12 deficiency Chronic GERD Diabetes Diverticulosis Fatty liver Fundic gland polyps of stomach, benign Hemorrhoids History of rectal polyps Hyperlipidemia Hyperlipidemia Itching Liver fibrosis Low magnesium level Metabolic syndrome Nausea Obesity due to excess calories Polyneuropathy Rectal polyp Restless legs Type 2 diabetes mellitus without complication Weight loss Historical - Any problem that you are no longer receiving treatment for. Elevated alkaline phosphatase level Patient Survey You may receive a survey via text or e-mail asking about your office visit. Please share your experience with us by completing your survey. We appreciate your feedback and thank you for choosing us (more content not included)... Normal [facility] Gastroenterology Office/Clin ic Noteon 09-29-2024 Gastroenterology Office/Clinic Note Gastroenterology Office/Clinic Note Chief Complaint Itching continues from Razdiffra HPI Staff Patient is a(n) 73 year old female who presents today for a(n) 6 month follow-up. Pt started Rezdiffra 03/2024. Started having itching - possible side effect that will subside after a month so she was advised to continue med. Itching continues FibroScan and repeat labs due 6 months after starting Rezdiffra. Takes Aspirin daily. Denies GLP-1 agonists. Last visit 03/28/24 w/Dr. Ugarte: History of Present Illness PT lost some weight about 20 pounds pt with hx of F3 fibrosis pt switched to pepsi zero getting DM under good control eating more fruits and vegetable Assessment/Plan 1. Liver fibrosis (K74.00: Hepatic fibrosis, [...] cups of medium roast coffee every day EGD/Colonoscopy 06/12/22 w/Dr. Russell: Impression and Plan Multiple fundus gastric polyps, 5-10 mm each, biopsied Impression and Plan 1. Sessile polyp, 3 mm, in the rectum, removed completely with cold snare 2. Moderate diverticulosis in the sigmoid and descending colon 3. Moderate nonbleeding internal hemorrhoids Recommendations: Repeat colonoscopy:: Pending pathology results, 7 yrs. Pathology: Final Diagnosis (Verified) A: POLYP, GASTRIC, POLYPECTOMY: ??? FUNDIC GLAND POLYP. 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 GES 01/08/23: IMPRESSION: GASTRIC EMPTYING IS WITHIN NORMAL LIMITS. Technical Comments Dose (mCi Tc99m Sulfur Colloid): [...] 32 4.0 hr (Upper Limit 10%) 8 US abd 02/03/23: IMPRESSION: FINDINGS SUGGESTING DIFFUSE FATTY INFILTRATION OF LIVER. PREVIOUS CHOLECYSTECTOMY. US liver 01/28/24: IMPRESSION: THE COMMON BILE DUCT IS SLIGHTLY LARGER THAN THE PRIOR STUDY AND LIVER IS ALSO SLIGHTLY LARGER THAN ON THE PRIOR ULTRASOUND. RECOMMEND CLOSE CORRELATION WITH LIVER FUNCTION STUDIES AND MAY CONSIDER CT OR MRI IMAGING. FibroScan 05/04/23: E 11.5 CAP 260 F3 Moderate steatosis Laboratory Results CBC CMP PT Hct: 31.2 % Low (01/28/24) A/G Ratio: 1.8 (01/28/24) INR: 1.1 (01/28/24) HGB: 10.4 gm/dL Low (01/28/24) AGAP: 18 mEq/L High (01/28/24) PT: 12.3 second(s) (01/28/24) MCH: 28.7 pg (01/28/24) Albumin Lvl: 4.2 gm/dL (01/28/24) MCHC: 33.5 gm/dL (01/28/24) Alk Phos: 112 Int._Unit/L High (01/28/24) MCV: 85.7 fL (01/28/24) ALT: 24 Int._Unit/L (01/28/24) MPV: 7.5 fL (01/28/24) AST: 31 Int._Unit/L (01/28/24) Platelet: 152 E9/L (01/28/24) Bili Total: 0.5 mg/dL (01/28/24) RBC: 3.6 E12/L Low (01/28/24) BUN: 36 mg/dL High (01/28/24) RDW: 17.1 % High (01/28/24) BUN/Creat Ratio: 21 High (01/28/24) WBC: 5.3 E9/L (01/28/24) Calcium Lvl: 8.7 mg/dL Low (01/28/24) Chloride: 99 mmol/L Low (01/28/24) CO2: 25 mmol/L (01/28/24) Creatinine: 1.7 mg/dL High (01/28/24) Globulin: 2.4 gm/dL (01/28/24) Glucose Lvl: 188 mg/dL (01/28/24) Potassium Lvl: 3.8 mmol/L (01/28/24) Sodium Lvl: 138 mmol/L (01/28/24) Total Protein: 6.6 gm/dL (01/28/24) Liver Studies A-1-AT: 169 (01/28/24) AMA Ab Scr: <20.0 (01/28/24) MAXX Direct: Negative (01/28/24) Ceruloplasmin: 30.2 (01/28/24) Ferritin Lvl: 41 ng/mL (01/28/24) HCV Ab: Non Reactive (01/28/24) Hep B Core Ab Total: Negative (01/28/24) Hep B Core IgM: Negative (01/28/24) Hep Bs Ag: Negative (01/28/24) Hepatitis C Genotype: COMMENT (01/28/24) Iron: 70 mcg/dL (01/28/24) SMA Scr: 6 (01/28/24) TIBC: 433 mcg/dL High (01/28/24) Celiac Panel Antigliadin IgA: 2 (01/28/24) Antigliadin Ig (01/28/24) Endomysial Antibody IgA: Negative (01/28/24) IgA Quant: 64 (01/28/24) t-Transglutaminase IgA: <2 (01/28/24) t-Transglutaminase IgG: <2 (01/28/24) History of Present Illness I have reviewed HPI staff note, most recent labs and imaging, I agree with the above documentation with the following additions/exceptions : PT took Rezdiffra and it gave her itching Since March started after few tablets tried itching creams Review of Systems PHQ Score Initial Depression Screen Score: 0 SCORE All systems reviewed, negative except (more content not included)... Normal [facility] Comment on above: Result Comment: Elec tronically Signed By: Shanel DONG, Verónica Finch\.br\Date and Time Signed: 09/29/24 10:08 EST Alanine aminotransferase [En zymatic activity/volume] in Serum or PlasmaOrdered By: Vinay Matta on 09-19-2024 ALT [Catalytic activity/Vol] 15 U/L Normal [facility] Comment on above: Order Comment: A1C I S NOT DUE UNTIL OCTOBER. Performed By: #### H EPATIC, HS TROP, BNP, BMP, CK, PTT, CBC, PT #### [facility] [address] [place] [address] ALT [Catalytic activity/Vol] Alanine aminotransferase [Enzymatic activity/volume] in Serum or Plasma [facility] Albumin [Mass/volume] in Ser um or Plasma by Bromocresol green (BCG) dye binding methoOrdered By: Vinay Matta on 09-19-2024 Albumin BCG dye [Mass/Vol] 4.0 g/dL 3.5-5.7 [facility] Albumin BCG dye [Mass/Vol] Albumin [Mass/volume] in Serum or Plasma by Bromocresol green (BCG) dye binding metho 3.5-5.7 [facility] Alkaline phosphatase [Enzyma tic activity/volume] in Serum or PlasmaOrdered By: Vinay Matta on 09-19-2024 ALP [Catalytic activity/Vol] 141 U/L High [address] [place] [address] Comment on above: Order Comment: A1C I S NOT DUE UNTIL OCTOBER. Performed By: #### H EPATIC, HS TROP, BNP, BMP, CK, PTT, CBC, PT #### [address] ALP [Catalytic activity/Vol] Alkaline phosphatase [Enzymatic activity/volume] in Serum or Plasma [address] Aspartate aminotransferase [ Enzymatic activity/volume] in Serum or PlasmaOrdered By: Vinay Matta on 09-19-2024 AST [Catalytic activity/Vol] 16 U/L Normal -39 [facility] Comment on above: Order Comment: A1C I S NOT DUE UNTIL OCTOBER. Performed By: #### H EPATIC, HS TROP, BNP, BMP, CK, PTT, CBC, PT #### [address] AST [Catalytic activity/Vol] Aspartate aminotransferase [Enzymatic activity/volume] in Serum or Plasma [facility] Automated basophil %Ordered By: Vinay Matta on 09-19-2024 Basophils/100 WBC (Bld) 0.5 % Normal . [facility] Comment on above: Order Comment: A1C I S NOT DUE UNTIL OCTOBER. Performed By: #### H EPATIC, HS TROP, BNP, BMP, CK, PTT, CBC, PT #### [facility] [address] Automated basophil countOrde red By: Vinay Matta on 09-19-2024 Basophils (Bld) [#/Vol] 0.0 10*3/uL Normal 0.0-0.2 [facility] Comment on above: Order Comment: A1C I S NOT DUE UNTIL OCTOBER. Result Comment: PERF ORMED BY: [place] [address] PATHOLOGIST SPECIAL MACHINE OPERATOR THERESA MULLER M.D. Performed By: #### H EPATIC, HS TROP, BNP, BMP, CK, PTT, CBC, PT #### [address] Automated blood monocyte cou ntOrdered By: Vinay Bunting on 09-19-2024 Monocytes (Bld) [#/Vol] 0.3 10*3/uL Normal 0.0-0.8 [facility] Comment on above: Order Comment: A1C I S NOT DUE UNTIL OCTOBER. Performed By: #### H EPATIC, HS TROP, BNP, BMP, CK, PTT, CBC, PT #### [address] Automated eosinophil %Ordere d By: Vinay Bunting on 09-19-2024 Eosinophils/100 WBC (Bld) 2.9 % Normal . [facility] Comment on above: Order Comment: A1C I S NOT DUE UNTIL OCTOBER. Performed By: #### H EPATIC, HS TROP, BNP, BMP, CK, PTT, CBC, PT #### [address] Automated eosinophil countOr dered By: Vinay Bunting on 09-19-2024 Eosinophils (Bld) [#/Vol] 0.2 10*3/uL Normal 0.0-0.45 [facility] Comment on above: Order Comment: A1C I S NOT DUE UNTIL OCTOBER. Performed By: #### H EPATIC, HS TROP, BNP, BMP, CK, PTT, CBC, PT #### [facility] [address] [place] [address] Automated monocyte %Ordered By: Vinay Bunting on 09-19-2024 Monocytes/100 WBC (Bld) 5.0 % Normal . [facility] Comment on above: Order Comment: A1C I S NOT DUE UNTIL OCTOBER. Performed By: #### H EPATIC, HS TROP, BNP, BMP, CK, PTT, CBC, PT #### [facility] [address] Automated neutrophil %Ordere d By: Vinay Bunting on 09-19-2024 Neutrophils/100 WBC (Bld) 64.0 % Normal . [facility] Comment on above: Order Comment: A1C I S NOT DUE UNTIL OCTOBER. Performed By: #### H EPATIC, HS TROP, BNP, BMP, CK, PTT, CBC, PT #### [facility] [address] Basophils Auto (Bld) [#/Vol] Ordered By: Vinay Bunting on 09-19-2024 Basophils (Bld) [#/Vol] Automated basophil count 0.0-0.2 [facility] Basophils/100 WBC Auto (Bld) Ordered By: Vinay Bunting on 09-19-2024 Basophils/100 WBC (Bld) Automated basophil % . [facility] Bilirubin.total [Mass/volume ] in Serum or PlasmaOrdered By: Vinay Bunting on 09-19-2024 Bilirubin [Mass/Vol] 0.8 mg/dL Normal 0.3-1.0 [facility] Comment on above: Order Comment: A1C I S NOT DUE UNTIL OCTOBER. Performed By: #### H EPATIC, HS TROP, BNP, BMP, CK, PTT, CBC, PT #### [facility] [address] Bilirubin [Mass/Vol] Bilirubin.total [Mass/volume] in Serum or Plasma 0.3-1.0 [facility] Calcium [Mass/volume] in Ser um or PlasmaOrdered By: Vinay Bunting on 09-19-2024 Calcium [Mass/Vol] 9.1 mg/dL Normal 8.6-10.3 [facility] Comment on above: Order Comment: A1C I S NOT DUE UNTIL OCTOBER. Performed By: #### H EPATIC, HS TROP, BNP, BMP, CK, PTT, CBC, PT #### [facility] [address] [place] [id number] [facility] Calcium [Mass/Vol] Calcium [Mass/volume ] in Serum or Plasma 8.6-10.3 [facility] Carbon dioxide, total [Moles /volume] in Serum or PlasmaOrdered By: Vinay Bunting on 09-19-2024 CO2 [Moles/Vol] 31.3 mmol/L High 21.0-31.0 [facility] Comment on above: Order Comment: A1C I S NOT DUE UNTIL OCTOBER. Performed By: #### H EPATIC, HS TROP, BNP, BMP, CK, PTT, CBC, PT #### [facility] [address] CO2 [Moles/Vol] Carbon dioxide, tota l [Moles/volume] in Serum or Plasma High 21.0-31.0 [facility] Chloride [Moles/volume] in S hilda or PlasmaOrdered By: Vinay Bunhomer on 09-19-2024 Chloride [Moles/Vol] 101 mmol/L Normal 98-107 [facility] Comment on above: Order Comment: A1C I S NOT DUE UNTIL OCTOBER. Performed By: #### H EPATIC, HS TROP, BNP, BMP, CK, PTT, CBC, PT #### [facility] [address] [id number] [facility] Chloride [Moles/Vol] Chloride [Moles/vol ume] in Serum or Plasma 98-107 [facility] Cholesterol [Mass/volume] in Serum or PlasmaOrdered By: Vinay Bunting on 09-19-2024 Cholesterol [Mass/Vol] 132 mg/dL Low 140-200 [facility] Comment on above: Chol less than 200 m g/dl low riskChol 201-239 mg/dl borderline riskChol 240 mg/dl and greater high risk Order Comment: A1C I S NOT DUE UNTIL OCTOBER. Result Comment: Chol less than 200 mg/dl low risk Chol 201-239 mg/dl borderline risk Chol 240 mg/dl and greater high risk Performed By: #### H EPATIC, HS TROP, BNP, BMP, CK, PTT, CBC, PT #### [facility] [address] [place] [phone] [place] Cholesterol [Mass/Vol] Cholesterol [Mass/volume] in Serum or Plasma Low 140-200 [facility] Comment on above: Chol less than 200 m g/dl low riskChol 201-239 mg/dl borderline riskChol 240 mg/dl and greater high risk Cholesterol in HDL [Mass/vol ume] in Serum or PlasmaOrdered By: Vinay Matta on 09-19-2024 Cholesterol in HDL [Mass/Vol] Serum or plasma high density lipoprotein (HDL) cholesterol measurement [facility] Comment on above: HDL CHOL ATP-III CLA SSIFICATION Cardiovascular RiskHDL > or equal to 60 mg/dL LOWHDL < 40 mg/dL HIGH Cholesterol in LDL Calc [Mas s/Vol]Ordered By: Vinay Matta on 09-19-2024 Cholesterol in LDL [Mass/Vol] 61 mg/dL 0-100 [facility] Comment on above: LDL ATP III CLASSIFI CATIONLDL less than 100 mg/dL OptimalLDL 100-129 mg/dL Near or above optimalLDL 130-159 mg/dL Borderline highLDL 160-189 mg/dL HighLDL greater than 189 mg/dL Very high Cholesterol in LDL [Mass/Vol] Cholesterol in LDL [Mass/volume] in Serum or Plasma by calculation 0 [facility] Comment on above: LDL ATP III CLASSIFI CATIONLDL less than 100 mg/dL OptimalLDL 100-129 mg/dL Near or above optimalLDL 130-159 mg/dL Borderline highLDL 160-189 mg/dL HighLDL greater than 189 mg/dL Very high Cholesterol in VLDL Calc [Ma ss/Vol]Ordered By: Vinay Matta on 09-19-2024 Cholesterol in VLDL [Mass/Vol] 30 mg/dL [facility] Cholesterol in VLDL [Mass/Vol] Cholesterol in VLDL [Mass/volume] in Serum or Plasma by calculation [facility] Complete Blood Count Auto Di ffon 09-19-2024 Mean Corpuscular HGB Conc 35.0 g/dL Normal 32.0-35.0 [facility] Comment on above: Order Comment: A1C I S NOT DUE UNTIL OCTOBER. Performed By: #### H EPATIC, HS TROP, BNP, BMP, CK, PTT, CBC, PT #### [facility] [address] [place] [address] NRBC% 0.1 /100{WBC} Normal 0-0.5 [facility] Comment on above: Order Comment: A1C I S NOT DUE UNTIL OCTOBER. Performed By: #### H EPATIC, HS TROP, BNP, BMP, CK, PTT, CBC, PT #### [facility] [address] Comprehensive Metabolic Pane palmer 09-19-2024 Albumin [Mass/Vol] 4.0 g/dL Normal 3.5-5.7 [facility] Comment on above: Order Comment: A1C I S NOT DUE UNTIL OCTOBER. Performed By: #### H EPATIC, HS TROP, BNP, BMP, CK, PTT, CBC, PT #### [facility] [address] GFR/1.73 sq M.predicted MDRD (S/P/Bld) [Vol rate/Area] 32.214 mL/min/{1.73_m2} Normal [facility] Comment on above: Order Comment: A1C I S NOT DUE UNTIL OCTOBER. Performed By: #### H EPATIC, HS TROP, BNP, BMP, CK, PTT, CBC, PT #### [address] Creatinine [Mass/volume] in Serum or PlasmaOrdered By: Vinay Bunting on 09-19-2024 Creatinine [Mass/Vol] 1.65 mg/dL High 0.60-1.20 [facility] Comment on above: Order Comment: A1C I S NOT DUE UNTIL OCTOBER. Performed By: #### H EPATIC, HS TROP, BNP, BMP, CK, PTT, CBC, PT #### [facility] [address] [place] [address] Creatinine [Mass/Vol] Creatinine [Mass/v olume] in Serum or Plasma High 0.60-1.20 [facility] Eosinophils Auto (Bld) [#/Vo l]Ordered By: Vinay Bunting on 09-19-2024 Eosinophils (Bld) [#/Vol] Automated eosinophil count 0.0-0.45 [facility] Eosinophils/100 WBC Auto (Bl d)Ordered By: Vinay Bunting on 09-19-2024 Eosinophils/100 WBC (Bld) Automated eosinophil % . [facility] Erythrocyte distribution wid th Auto (RBC) [Ratio]Ordered By: Vinay Bunting on 09-19-2024 Erythrocyte distribution width (RBC) [Ratio] Erythrocyte distribution width [Ratio] by Automated count High 11.9-15.3 [facility] Erythrocyte distribution wid th [Ratio] by Automated countOrdered By: Vinay Matta on 09-19-2024 Erythrocyte distribution width (RBC) [Ratio] 16.3 % High 11.9-15.3 [facility] Comment on above: Order Comment: A1C I S NOT DUE UNTIL OCTOBER. Performed By: #### H EPATIC, HS TROP, BNP, BMP, CK, PTT, CBC, PT #### [facility] [address] Erythrocytes [#/volume] in B lood by Automated countOrdered By: Vinay Matta on 09-19-2024 RBC (Bld) [#/Vol] 4.03 10*6/uL Normal 3.60-5.00 [facility] Comment on above: Order Comment: A1C I S NOT DUE UNTIL OCTOBER. Performed By: #### H EPATIC, HS TROP, BNP, BMP, CK, PTT, CBC, PT #### [facility] [address] Globulin Calc (S) [Mass/Vol] Ordered By: Vinay Matta on 09-19-2024 Globulin (S) [Mass/Vol] Serum globulin measurement by calculation (mass/volume) [facility] Glucose [Mass/volume] in Ser um or PlasmaOrdered By: Vinay Matta on 09-19-2024 Glucose [Mass/Vol] 195 mg/dL High 70-100 [facility] Comment on above: ADA recommended refe rence rangeRandom Glucose Reference Range is dependent on time and content of last meal. Glucose of more than 200 mg/dL in a nonstressed, ambulatory subject supports the diagnosis of Diabetes Mellitus. Order Comment: A1C I S NOT DUE UNTIL OCTOBER. Result Comment: [place] om Glucose Reference Range is dependent on time and content of last meal. Glucose of more than 200 mg/dL in a nonstressed, ambulatory subject supports the diagnosis of Diabetes Mellitus. ADA recommended reference range Performed By: #### H EPATIC, HS TROP, BNP, BMP, CK, PTT, CBC, PT #### [facility] [address] Glucose [Mass/Vol] Glucose [Mass/volume ] in Serum or Plasma High 70-100 [facility] Comment on above: ADA recommended refe rence rangeRandom Glucose Reference Range is dependent on time and content of last meal. Glucose of more than 200 mg/dL in a nonstressed, ambulatory subject supports the diagnosis of Diabetes Mellitus. Hematocrit Auto (Bld) [Volum e fraction]Ordered By: Vinay Matta on 09-19-2024 Hematocrit (Bld) [Volume fraction] Hematocrit [Volume Fraction] of Blood by Automated count 34.0-46.4 [facility] Hematocrit [Volume Fraction] of Blood by Automated countOrdered By: Vinay Matta on 09-19-2024 Hematocrit (Bld) [Volume fraction] 34.1 % Normal 34.0-46.4 [facility] Comment on above: Order Comment: A1C I S NOT DUE UNTIL OCTOBER. Performed By: #### H EPATIC, HS TROP, BNP, BMP, CK, PTT, CBC, PT #### [facility] [address] Hemoglobin [Mass/volume] in BloodOrdered By: Vinay Matta on 09-19-2024 Hemoglobin (Bld) [Mass/Vol] 12.0 g/dL Normal 11.8-15.4 [facility] Comment on above: Order Comment: A1C I S NOT DUE UNTIL OCTOBER. Performed By: #### H EPATIC, HS TROP, BNP, BMP, CK, PTT, CBC, PT #### [facility] [address] Hemoglobin (Bld) [Mass/Vol] Hemoglobin [Mass/volume] in Blood 11.8-15.4 [facility] Leukocytes [#/volume] correc remberto for nucleated erythrocytes in Blood by Automated counOrdered By: Vinay Matta on 09-19-2024 WBC corrected for nucl RBC Auto (Bld) [#/Vol] 5.5 10*3/uL 3.8-11.6 [facility] WBC corrected for nucl RBC Auto (Bld) [#/Vol] Leukocytes [#/volume] corrected for nucleated erythrocytes in Blood by Automated coun 3.8-11.6 [facility] Leukocytes [#/volume] in Blo od by Automated countOrdered By: Vinay Matta on 09-19-2024 WBC (Bld) [#/Vol] 5.5 10*3/uL Normal 3.8-11.6 [facility] Comment on above: Order Comment: A1C I S NOT DUE UNTIL OCTOBER. Performed By: #### H EPATIC, HS TROP, BNP, BMP, CK, PTT, CBC, PT #### [facility] [address] [place] [phone] [facility] Lipid Panelon 09-19-2024 LDL Cholesterol,Calculate d 61 mg/dL Normal 0-100 [facility] Comment on above: Order Comment: A1C I S NOT DUE UNTIL OCTOBER. Result Comment: LDL ATP III CLASSIFICATION LDL less than 100 mg/dL Optimal LDL 100-129 mg/dL Near or above optimal LDL 130-159 mg/dL Borderline high LDL 160-189 mg/dL High LDL greater than 189 mg/dL Very high Performed By: #### H EPATIC, HS TROP, BNP, BMP, CK, PTT, CBC, PT #### [facility] [address] Triglyceride w/Reflex 151 mg/dL High 0-149 [facility] Comment on above: Order Comment: A1C I S NOT DUE UNTIL OCTOBER. Result Comment: TRIG ATP III CLASSIFICATION TRIG less than 150 mg/dL Normal TRIG 150-199 mg/dL Borderline high TRIG 200-500 mg/dL High TRIG greater than 500 mg/dL Very high Standard traceable to the Center for Disease Conrtrol and Prevention (CDC) test method. Performed By: #### H EPATIC, HS TROP, BNP, BMP, CK, PTT, CBC, PT #### [facility] [address] VLDL CHOLESTEROL 30 mg/dL Normal [facility] Comment on above: Order Comment: A1C I S NOT DUE UNTIL OCTOBER. Performed By: #### H EPATIC, HS TROP, BNP, BMP, CK, PTT, CBC, PT #### [facility] [address] Lymphocytes Auto (Bld) [#/Vo l]Ordered By: Vinay Bunting on 09-19-2024 Lymphocytes (Bld) [#/Vol] Lymphocytes [#/volume] in Blood by Automated count 1.00-4.8 [facility] Lymphocytes [#/volume] in Bl ood by Automated countOrdered By: Vinay Bunting on 09-19-2024 Lymphocytes (Bld) [#/Vol] 1.5 10*3/uL Normal 1.00-4.8 [facility] Comment on above: Order Comment: A1C I S NOT DUE UNTIL OCTOBER. Performed By: #### H EPATIC, HS TROP, BNP, BMP, CK, PTT, CBC, PT #### [facility] [address] Lymphocytes/100 WBC Auto (Bl d)Ordered By: Vinay Bunting on 09-19-2024 Lymphocytes/100 WBC (Bld) Lymphocytes/100 leukocytes in Blood by Automated count . [facility] Lymphocytes/100 leukocytes i n Blood by Automated countOrdered By: Vinay Bunting on 09-19-2024 Lymphocytes/100 WBC (Bld) 27.6 % Normal . [facility] Comment on above: Order Comment: A1C I S NOT DUE UNTIL OCTOBER. Performed By: #### H EPATIC, HS TROP, BNP, BMP, CK, PTT, CBC, PT #### [facility] [address] [place] [address] MCH Auto (RBC) [Entitic mass ]Ordered By: Vinay Bunting on 09-19-2024 MCH (RBC) [Entitic mass] MCH [Entitic mass] by Automated count 24.7-34.3 [facility] MCH [Entitic mass] by Automa remberto countOrdered By: Vinay Bunting on 09-19-2024 MCH (RBC) [Entitic mass] 29.7 pg Normal 24.7-34.3 [facility] Comment on above: Order Comment: A1C I S NOT DUE UNTIL OCTOBER. Performed By: #### H EPATIC, HS TROP, BNP, BMP, CK, PTT, CBC, PT #### [facility] [address] MCHC Auto (RBC) [Mass/Vol]Or dered By: Vinay Bunting on 09-19-2024 MCHC (RBC) [Mass/Vol] 35.0 g/dL 32.0-35.0 [facility] MCHC (RBC) [Mass/Vol] MCHC [Mass/volume] by Automated count 32.0-35.0 [facility] MCV Auto (RBC) [Entitic vol] Ordered By: Vinay Bunting on 09-19-2024 MCV (RBC) [Entitic vol] MCV [Entitic volume] by Automated count 80-100 [facility] MCV [Entitic volume] by Auto mated countOrdered By: Vinay Bunting on 09-19-2024 MCV (RBC) [Entitic vol] 84.7 fL Normal 80-100 [facility] Comment on above: Order Comment: A1C I S NOT DUE UNTIL OCTOBER. Performed By: #### H EPATIC, HS TROP, BNP, BMP, CK, PTT, CBC, PT #### [facility] [address] [place] [address] [place] Magnesium [Mass/volume] in S hilda or PlasmaOrdered By: Vinay Bunting on 09-19-2024 Magnesium [Mass/Vol] 1.3 mg/dL Low 1.9-2.7 [facility] Comment on above: Order Comment: A1C I S NOT DUE UNTIL OCTOBER. Performed By: #### H EPATIC, HS TROP, BNP, BMP, CK, PTT, CBC, PT #### [facility] [address] [place] [id number] [place] Magnesium [Mass/Vol] Magnesium [Mass/vol ume] in Serum or Plasma Low 1.9-2.7 [facility] Monocytes Auto (Bld) [#/Vol] Ordered By: Vinay Bunting on 09-19-2024 Monocytes (Bld) [#/Vol] Automated blood monocyte count 0.0-0.8 [facility] Monocytes/100 WBC Auto (Bld) Ordered By: Vinay Bunting on 09-19-2024 Monocytes/100 WBC (Bld) Automated monocyte % . [facility] Neutrophils Auto (Bld) [#/Vo l]Ordered By: Vinay Bunting on 09-19-2024 Neutrophils (Bld) [#/Vol] Neutrophils [#/volume] in Blood by Automated count 1.8-7.7 [facility] Neutrophils [#/volume] in Bl ood by Automated countOrdered By: Vinay Matta on 09-19-2024 Neutrophils (Bld) [#/Vol] 3.5 10*3/uL Normal 1.8-7.7 [facility] Comment on above: Order Comment: A1C I S NOT DUE UNTIL OCTOBER. Performed By: #### H EPATIC, HS TROP, BNP, BMP, CK, PTT, CBC, PT #### [facility] [address] [place] [address] [place] Neutrophils/100 WBC Auto (Bl d)Ordered By: Vinay Matta on 09-19-2024 Neutrophils/100 WBC (Bld) Automated neutrophil % . [facility] No Panel InformationOrdered By: Vinay Matta on 09-19-2024 Estimated GFR (CKD-EPI) 32.214 mL/Min [facility] Creatinine Clearance (Chem N/A [facility] Nucleated erythrocytes [Pres ence] in Blood by Automated countOrdered By: Vinay Matta on 09-19-2024 Nucleated RBC Auto Ql (Bld) 0.1 /100{WBC} 0-0.5 [facility] Nucleated RBC Auto Ql (Bld) Nucleated erythrocytes [Presence] in Blood by Automated count 0-0.5 [facility] Platelet mean volume Auto (B ld) [Entitic vol]Ordered By: Vinay Matta on 09-19-2024 Platelet mean volume (Bld) [Entitic vol] Platelet mean volume [Entitic volume] in Blood by Automated count 6.3-10.7 [facility] Platelet mean volume [Entiti c volume] in Blood by Automated countOrdered By: Vinay Matta on 09-19-2024 Platelet mean volume (Bld) [Entitic vol] 7.2 fL Normal 6.3-10.7 [facility] Comment on above: Order Comment: A1C I S NOT DUE UNTIL OCTOBER. Performed By: #### H EPATIC, HS TROP, BNP, BMP, CK, PTT, CBC, PT #### [facility] [address] [place] [address] [place] Platelets Auto (Bld) [#/Vol] Ordered By: Vinay Bunting on 09-19-2024 Platelets (Bld) [#/Vol] Platelets [#/volume] in Blood by Automated count Low 150-450 [facility] Platelets [#/volume] in Bloo d by Automated countOrdered By: Vinay Bunting on 09-19-2024 Platelets (Bld) [#/Vol] 145 10*3/uL Low 150-450 [facility] Comment on above: Order Comment: A1C I S NOT DUE UNTIL OCTOBER. Performed By: #### H EPATIC, HS TROP, BNP, BMP, CK, PTT, CBC, PT #### [facility] [address] [place] [address] [place] Potassium [Moles/volume] in Serum or PlasmaOrdered By: Vinay Bunting on 09-19-2024 Potassium [Moles/Vol] 5.1 mmol/L Normal 3.5-5.1 [facility] Comment on above: Order Comment: A1C I S NOT DUE UNTIL OCTOBER. Performed By: #### H EPATIC, HS TROP, BNP, BMP, CK, PTT, CBC, PT #### [facility] [address] [place] [address] [facility] Potassium [Moles/Vol] Potassium [Moles/v olume] in Serum or Plasma 3.5-5.1 [facility] Protein [Mass/volume] in Ser um or PlasmaOrdered By: Vinay Bunting on 09-19-2024 Protein [Mass/Vol] 6.2 g/dL Low 6.4-8.9 [facility] Comment on above: Order Comment: A1C I S NOT DUE UNTIL OCTOBER. Performed By: #### H EPATIC, HS TROP, BNP, BMP, CK, PTT, CBC, PT #### [facility] [address] [place] [address] [place] Protein [Mass/Vol] Protein [Mass/volume ] in Serum or Plasma Low 6.4-8.9 [facility] RBC Auto (Bld) [#/Vol]Ordere d By: Vinay Bunting on 09-19-2024 RBC (Bld) [#/Vol] Erythrocytes [#/volu me] in Blood by Automated count 3.60-5.00 [facility] Serum globulin measurement b y calculation (mass/volume)Ordered By: Vinay Matta on 09-19-2024 Globulin (S) [Mass/Vol] 2.2 g/dL Normal [facility] Comment on above: Order Comment: A1C I S NOT DUE UNTIL OCTOBER. Performed By: #### H EPATIC, HS TROP, BNP, BMP, CK, PTT, CBC, PT #### [facility] [address] Serum or plasma albumin/glob ulin mass ratioOrdered By: Vinay Matta on 09-19-2024 Albumin/Globulin [Mass ratio] 1.8 {ratio} [facility] Comment on above: Order Comment: A1C I S NOT DUE UNTIL OCTOBER. Performed By: #### H EPATIC, HS TROP, BNP, BMP, CK, PTT, CBC, PT #### [facility] [address] Albumin/Globulin [Mass ratio] Serum or plasma albumin/globulin mass ratio [facility] Serum or plasma anion gap de terminationOrdered By: Vinay Matta on 09-19-2024 Anion gap [Moles/Vol] 11.8 mmol/L Normal 6.0-15.0 [facility] Comment on above: Order Comment: A1C I S NOT DUE UNTIL OCTOBER. Performed By: #### H EPATIC, HS TROP, BNP, BMP, CK, PTT, CBC, PT #### [facility] [address] [place] [address] Anion gap [Moles/Vol] Serum or plasma an ion gap determination 6.0-15.0 [facility] Serum or plasma high density lipoprotein (HDL) cholesterol measurementOrdered By: Vinay Matta on 09-19-2024 Cholesterol in HDL [Mass/Vol] 41 mg/dL Normal 23-92 [facility] Comment on above: HDL CHOL ATP-III CLA SSIFICATION Cardiovascular RiskHDL > or equal to 60 mg/dL LOWHDL < 40 mg/dL HIGH Order Comment: A1C I S NOT DUE UNTIL OCTOBER. Result Comment: HDL CHOL ATP-III CLASSIFICATION Cardiovascular Risk HDL > or equal to 60 mg/dL LOW HDL < 40 mg/dL HIGH Performed By: #### H EPATIC, HS TROP, BNP, BMP, CK, PTT, CBC, PT #### [facility] [address] Serum or plasma total choles terol/high density lipoprotein (HDL) cholesterol mass ratOrdered By: Vinay Matta on 09-19-2024 Cholesterol.total/Cho lesterol in HDL [Mass ratio] 3.2 {ratio} Normal <5.0 [facility] Comment on above: Order Comment: A1C I S NOT DUE UNTIL OCTOBER. Result Comment: PERF ORMED BY: [place] [address] PATHOLOGIST SPECIAL MACHINE OPERATOR THERESA MULLER M.D. Performed By: #### H EPATIC, HS TROP, BNP, BMP, CK, PTT, CBC, PT #### [facility] [address] Cholesterol.total/Cho lesterol in HDL [Mass ratio] Serum or plasma total cholesterol/high density lipoprotein (HDL) cholesterol mass rat <5.0 [facility] Sodium [Moles/volume] in Ser um or PlasmaOrdered By: Vinay Matta on 09-19-2024 Sodium [Moles/Vol] 139 mmol/L Normal 136-145 [facility] Comment on above: Order Comment: A1C I S NOT DUE UNTIL OCTOBER. Performed By: #### H EPATIC, HS TROP, BNP, BMP, CK, PTT, CBC, PT #### [facility] [address] [place] [address] Sodium [Moles/Vol] Sodium [Moles/volume ] in Serum or Plasma 136-145 [facility] Triglyceride [Mass/volume] i n Serum or PlasmaOrdered By: Vinay Matta on 09-19-2024 Triglyceride [Mass/Vol] 151 mg/dL High 0-149 [facility] Comment on above: TRIG ATP III CLASSIF ICATIONTRIG less than 150 mg/dL NormalTRIG 150-199 mg/dL Borderline highTRIG 200-500 mg/dL High TRIG greater than 500 mg/dL Very highStandard traceable to the Center for Disease Conrtrol and Prevention (CDC) test method. Triglyceride [Mass/Vol] Triglyceride [Mass/volume] in Serum or Plasma High 0-149 [facility] Comment on above: TRIG ATP III CLASSIF ICATIONTRIG less than 150 mg/dL NormalTRIG 150-199 mg/dL Borderline highTRIG 200-500 mg/dL High TRIG greater than 500 mg/dL Very highStandard traceable to the Center for Disease Conrtrol and Prevention (CDC) test method. Urea nitrogen [Mass/volume] in Serum or PlasmaOrdered By: Vinay Matta on 09-19-2024 Urea nitrogen [Mass/Vol] 33 mg/dL High - [facility] Comment on above: Order Comment: A1C I S NOT DUE UNTIL OCTOBER. Performed By: #### H EPATIC, HS TROP, BNP, BMP, CK, PTT, CBC, PT #### [facility] [address] [place] [id number] [place] Urea nitrogen [Mass/Vol] Urea nitrogen [Mass/volume] in Serum or Plasma High 06-09 [facility] WBC Auto (Bld) [#/Vol]Ordere d By: Vinay Matta on 09-19-2024 WBC (Bld) [#/Vol] Leukocytes [#/volume ] in Blood by Automated count 3.8-11.6 [facility] Alanine aminotransferase [En zymatic activity/volume] in Serum or PlasmaOrdered By: Comfort Monteiro on 07-22-2024 ALT [Catalytic activity/Vol] 17 U/L Normal 7-52 [facility] Comment on above: Performed By: #### H EPATIC, HS TROP, BNP, BMP, CK, PTT, CBC, PT #### [facility] [address] [place] [id number] [place] Albumin [Mass/volume] in Ser um or Plasma by Bromocresol green (BCG) dye binding methoOrdered By: Comfort Monteiro on 07-22-2024 Albumin BCG dye [Mass/Vol] 3.9 g/dL 3.5-5.7 [facility] Alkaline phosphatase [Enzyma tic activity/volume] in Serum or PlasmaOrdered By: Comfort Ontiverosr on 07-22-2024 ALP [Catalytic activity/Vol] 122 U/L High 34-104 [facility] Comment on above: Performed By: #### H EPATIC, HS TROP, BNP, BMP, CK, PTT, CBC, PT #### [address] Aspartate aminotransferase [ Enzymatic activity/volume] in Serum or PlasmaOrdered By: Obaydah Daromar on 07-22-2024 AST [Catalytic activity/Vol] 17 U/L Normal 13-39 [facility] Comment on above: Performed By: #### H EPATIC, HS TROP, BNP, BMP, CK, PTT, CBC, PT #### [address] Automated basophil %Ordered By: Obberyldah Daromar on 07-22-2024 Basophils/100 WBC (Bld) 0.4 % Normal . [facility] Comment on above: Performed By: #### H EPATIC, HS TROP, BNP, BMP, CK, PTT, CBC, PT #### [address] Automated basophil countOrde red By: Obberyldadulce maria Ratliffomar on 07-22-2024 Basophils (Bld) [#/Vol] 0.0 10*3/uL Normal 0.0-0.2 [facility] Comment on above: Result Comment: PERF ORMED BY: [place] [address] PATHOLOGIST SPECIAL MACHINE OPERATOR THERESA MULLER M.D. Performed By: #### H EPATIC, HS TROP, BNP, BMP, CK, PTT, CBC, PT #### [address] Automated blood monocyte cou ntOrdered By: Obaydah Daromar on 07-22-2024 Monocytes (Bld) [#/Vol] 0.3 10*3/uL Normal 0.0-0.8 [facility] Comment on above: Performed By: #### H EPATIC, HS TROP, BNP, BMP, CK, PTT, CBC, PT #### [address] Automated eosinophil %Ordere d By: Pinadadulce maria Ratliffomar on 07-22-2024 Eosinophils/100 WBC (Bld) 2.7 % Normal . [facility] Comment on above: Performed By: #### H EPATIC, HS TROP, BNP, BMP, CK, PTT, CBC, PT #### [facility] [address] Automated eosinophil countOr dered By: Pinadadulce maria Ratliffomar on 07-22-2024 Eosinophils (Bld) [#/Vol] 0.1 10*3/uL Normal 0.0-0.45 [facility] Comment on above: Performed By: #### H EPATIC, HS TROP, BNP, BMP, CK, PTT, CBC, PT #### [facility] [address] Automated monocyte %Ordered By: Pinadadulce maria Ratliffomar on 07-22-2024 Monocytes/100 WBC (Bld) 5.5 % Normal . [facility] Comment on above: Performed By: #### H EPATIC, HS TROP, BNP, BMP, CK, PTT, CBC, PT #### [facility] [address] [place] [address] Automated neutrophil %Ordere d By: Comfort Ontiverosr on 07-22-2024 Neutrophils/100 WBC (Bld) 60.0 % Normal . [facility] Comment on above: Performed By: #### H EPATIC, HS TROP, BNP, BMP, CK, PTT, CBC, PT #### [facility] [address] Bilirubin.total [Mass/volume ] in Serum or PlasmaOrdered By: Comfort Ratliffomar on 07-22-2024 Bilirubin [Mass/Vol] 0.5 mg/dL Normal 0.3-1.0 [facility] Comment on above: Performed By: #### H EPATIC, HS TROP, BNP, BMP, CK, PTT, CBC, PT #### [facility] [address] [place] [address] Calcium [Mass/volume] in Ser um or PlasmaOrdered By: Obberyldadulce maria Ratliffomar on 07-22-2024 Calcium [Mass/Vol] 9.2 mg/dL Normal 8.6-10.3 [facility] Comment on above: Performed By: #### H EPATIC, HS TROP, BNP, BMP, CK, PTT, CBC, PT #### [facility] [address] Capillary blood glucose emperatriz urement by glucometer (mass/volume)Ordered By: Comfort Monteiro on 07-22-2024 Glucose [Mass/Vol] 239 mg/dL Normal [facility] Comment on above: Random Glucose Refer ence Range is dependent on time and content of last meal. Glucose of more than 200 mg/dL in a nonstressed, ambulatory subject supports the diagnosis of Diabetes Mellitus. Result Comment: [place] om Glucose Reference Range is dependent on time and content of last meal. Glucose of more than 200 mg/dL in a nonstressed, ambulatory subject supports the diagnosis of Diabetes Mellitus. PERFORMED BY: [facility] [address] [facility] [place] [address] PATHOLOGIST SPECIAL MACHINE OPERATOR THERESA MULLER M.D. Performed By: #### H EPATIC, HS TROP, BNP, BMP, CK, PTT, CBC, PT #### [facility] [address] Carbon dioxide, total [Moles /volume] in Serum or PlasmaOrdered By: Comfort Monteiro on 07-22-2024 CO2 [Moles/Vol] 24.9 mmol/L Normal 21.0-31.0 [facility] Comment on above: Performed By: #### H EPATIC, HS TROP, BNP, BMP, CK, PTT, CBC, PT #### [facility] [address] [place] [address] [place] Chloride [Moles/volume] in S hilda or PlasmaOrdered By: Comfort Monteiro on 07-22-2024 Chloride [Moles/Vol] 104 mmol/L Normal 98-107 [facility] Comment on above: Performed By: #### H EPATIC, HS TROP, BNP, BMP, CK, PTT, CBC, PT #### [address] Complete Blood Count Auto Di ffon 07-22-2024 Mean Corpuscular HGB Conc 35.3 g/dL High 32.0-35.0 [facility] Comment on above: Performed By: #### H EPATIC, HS TROP, BNP, BMP, CK, PTT, CBC, PT #### [address] NRBC% 0.1 /100{WBC} Normal 0-0.5 [facility] Comment on above: Performed By: #### H EPATIC, HS TROP, BNP, BMP, CK, PTT, CBC, PT #### [address] Comprehensive Metabolic Pane palmer 07-22-2024 Albumin [Mass/Vol] 3.9 g/dL Normal 3.5-5.7 [facility] Comment on above: Performed By: #### H EPATIC, HS TROP, BNP, BMP, CK, PTT, CBC, PT #### [address] Creatinine Clr Calc Pharmacy 35.10 Normal [facility] Comment on above: Result Comment: PERF ORMED BY: [place] [address] PATHOLOGIST SPECIAL MACHINE OPERATOR THERESA MULLER M.D. Performed By: #### H EPATIC, HS TROP, BNP, BMP, CK, PTT, CBC, PT #### [address] GFR/1.73 sq M.predicted MDRD (S/P/Bld) [Vol rate/Area] 34.723 mL/min/{1.73_m2} Normal [facility] Comment on above: Performed By: #### H EPATIC, HS TROP, BNP, BMP, CK, PTT, CBC, PT #### [address] Creatinine [Mass/volume] in Serum or PlasmaOrdered By: Comfort Monteiro on 07-22-2024 Creatinine [Mass/Vol] 1.55 mg/dL High 0.60-1.20 [facility] Comment on above: Performed By: #### H EPATIC, HS TROP, BNP, BMP, CK, PTT, CBC, PT #### [facility] [address] [place] [address] [facility] echo transthoracicon [facility] echo transthoracic [facility] [address] [place] [address] [place] [address] Echocardiogram Signed Patient: Anh Tejeda MR#: [id number] : 1950 Acct:[id number] Age/Sex: 73 / F ADM Date: 07/21/24 Loc: Room: [address] [place] [address] Type: ADM INOo Attending Dr: Comfort Monteiro MD Ordering Provider: Comfort Monteiro MD Date of Service: 07/21/2404/08/1238 [facility] echo transthoracic: Arrhythmia/Palpitations/ stroke workup Copies to: DO Comfort Jon MD Weight: 210 lb Performed By: Bess Catalan BSA: 2.0 m2 BP: 116/72 mmHg HR: 70 Reason For Study: Arrhythmia/Palpitations/ stroke workup History: COVID, AKL, Mumps, Measels, HLD, HTN, DM, Skin Cancer Interpretation Summary 73 y/o F w/ palpitations Normal LV systolic function Procedure/Quality: A two-dimensional transthoracic echocardiogram with color flow and Doppler was performed. Left Ventricle: normal chamber size w/ mild hypertrophy. Left ventricular systolic function is normal. A variety of Doppler measurements indicate normal left ventricular diastolic function. Left Atrium: The left atrium appears normal in size. Right Atrium: The right atrium appears normal in size. Right Ventricle: The right ventricular systolic function is normal. Aortic Valve: The aortic valve is normal in structure. No hemodynamically significant valvular aortic stenosis. Mitral Valve: The mitral valve is normal in structure. No significant mitral valve stenosis. There is trace mitral regurgitation. Tricuspid Valve: The tricuspid valve is not well visualized. physiologic. Pulmonic Valve: The pulmonic valve is not well visualized. Arteries: The aortic root is normal size. proximal ascending aorta size: normal. IVC/Hepatic Veins: IVC not well visualized. Measurements with Normals IVSd: 1.1 cm (0.7-1.1 cm)LVIDd: 4.2 cm (3.7-5.4 cm) LVPWd: 1.1 cm (0.7-1.1 cm)LVIDs: 2.7 cm (2.3-3.6 cm) LA dimension: 3.5 cm (2.3-4.0 cm)Ao root diam: 2.7 cm(2.0-3.6 cm) asc Aorta Diam: 3.0 cm(2.1-3.4cm) Doppler with Normals RVSP(TR): 33.4 mmHg (18-35mmHg) LV V1 max: 88.8 cm/sec (0.7-1.7m/s)MV E max jimmy: 86.8 cm/sec(0.8-1.3m/s) MV A max jimmy: 97.0 cm/sec(0.0-0.0m/s) MV E/A: 0.89 (<1.5) MMode/2D Measurements Calculations RVDd: 3.1 cm FS: 35.3 % Ao root area: LVOT diam: 2.0 cm RV S Jimmy: EDV(Teich): 5.8 cm2 LVOT area: 3.0 cm2 15.9 cm/sec 78.5 ml ESV(Teich): 27.4 ml EF(Teich): 65.1 % __ LVLd ap4: 6.8 cm SV(MOD-sp4): LAV(MOD-sp4): LA A2 area: 15.1 cm2 EDV(MOD-sp4): 40.0 ml 45.3 ml 63.5 ml LAV(MOD-sp2): LA A4 area: 18.0 cm2 LVLs ap4: 5.8 cm 38.2 ml LA length (vol): ESV(MOD-sp4): 5.6 cm 23.5 ml LA vol: 41.4 ml EF(MOD-sp4): 63.0 % LA vol index: 20.8 ml/m2 Doppler Measurements Calculations MV dec time: MV max PG: E/E' lat: 11.9 MV dec slope: 0.27 sec 60.0 mmHg E/E' med: 17.0 325.5 cm/sec2 __ Ao V2 max: LV V1 max PG: MR max jimmy: TV max P.0 mmHg 161.8 cm/sec 3.2 mmHg 388.0 cm/sec Ao max PG: LV V1 mean PG: MR max P.5 mmHg 1.8 mmHg 60.6 mmHg Ao mean PG: LV V1 mean: 7.3 mmHg 64.2 cm/sec Ao V2 mean: LV V1 VTI: 27.3 cm 130.7 cm/sec Ao V2 VTI: 45.9 cm SAM(I,D): 1.8 cm2 SAM(V,D): 1.7 cm2 __ TR max jimmy: 275.7 cm/sec TR max P.4 mmHg RAP systole: 3.0 mmHg Transcribed By: REDD Performed At: 07/22/24 1025 Signed By: Kami Mcginnis DO 07/22/24 1546 Normal [facility] Erythrocyte distribution wid th [Ratio] by Automated countOrdered By: Comfort Monteiro on 07-22-2024 Erythrocyte distribution width (RBC) [Ratio] 16.3 % High 11.9-15.3 [facility] Comment on above: Performed By: #### H EPATIC, HS TROP, BNP, BMP, CK, PTT, CBC, PT #### [facility] [address] Erythrocytes [#/volume] in B lood by Automated countOrdered By: Comfort Monteiro on 07-22-2024 RBC (Bld) [#/Vol] 3.73 10*6/uL Normal 3.60-5.00 [facility] Comment on above: Performed By: #### H EPATIC, HS TROP, BNP, BMP, CK, PTT, CBC, PT #### [place] [id number] [facility] Glucose Poct Glucometerson 0 07-22-2024 Glucose [Mass/Vol] 266 mg/dL Normal [facility] Comment on above: Result Comment: [place] om Glucose Reference Range is dependent on time and content of last meal. Glucose of more than 200 mg/dL in a nonstressed, ambulatory subject supports the diagnosis of Diabetes Mellitus. PERFORMED BY: [place] [address] PATHOLOGIST SPECIAL MACHINE OPERATOR THERESA MULLER M.D. Performed By: #### H EPATIC, HS TROP, BNP, BMP, CK, PTT, CBC, PT #### [address] Glucose [Mass/Vol] 165 mg/dL Normal [facility] Comment on above: Result Comment: [place] om Glucose Reference Range is dependent on time and content of last meal. Glucose of more than 200 mg/dL in a nonstressed, ambulatory subject supports the diagnosis of Diabetes Mellitus. PERFORMED BY: [place] [address] PATHOLOGIST SPECIAL MACHINE OPERATOR THERESA MULLER M.D. Performed By: #### H EPATIC, HS TROP, BNP, BMP, CK, PTT, CBC, PT #### [place] [id number] [facility] Glucose [Mass/volume] in Ser um or PlasmaOrdered By: Comfort Monteiro on 07-22-2024 Glucose [Mass/Vol] 142 mg/dL Significant change up 70-100 [facility] Comment on above: [place]: 334 on -[id number] recommended reference rangeRandom Glucose Reference Range is dependent on time and content of last meal. Glucose of more than 200 mg/dL in a nonstressed, ambulatory subject supports the diagnosis of Diabetes Mellitus. Result Comment: [place] om Glucose Reference Range is dependent on time and content of last meal. Glucose of more than 200 mg/dL in a nonstressed, ambulatory subject supports the diagnosis of Diabetes Mellitus. ADA recommended reference range Performed By: #### H EPATIC, HS TROP, BNP, BMP, CK, PTT, CBC, PT #### [facility] [address] Hematocrit [Volume Fraction] of Blood by Automated countOrdered By: Obberyldadulce maria Ratliffomar on 07-22-2024 Hematocrit (Bld) [Volume fraction] 32.0 % Low 34.0-46.4 [facility] Comment on above: Performed By: #### H EPATIC, HS TROP, BNP, BMP, CK, PTT, CBC, PT #### [facility] [address] [place] [address] Hemoglobin [Mass/volume] in BloodOrdered By: Obberyldadulce maria Ratliffomar on 07-22-2024 Hemoglobin (Bld) [Mass/Vol] 11.3 g/dL Low 11.8-15.4 [facility] Comment on above: Performed By: #### H EPATIC, HS TROP, BNP, BMP, CK, PTT, CBC, PT #### [facility] [address] [place] [address] Leukocytes [#/volume] correc remberto for nucleated erythrocytes in Blood by Automated counOrdered By: Comfort Ontiverosr on 07-22-2024 WBC corrected for nucl RBC Auto (Bld) [#/Vol] 5.4 10*3/uL 3.8-11.6 [facility] Leukocytes [#/volume] in Blo od by Automated countOrdered By: Comfort Ratliffomar on 07-22-2024 WBC (Bld) [#/Vol] 5.4 10*3/uL Normal 3.8-11.6 [facility] Comment on above: Performed By: #### H EPATIC, HS TROP, BNP, BMP, CK, PTT, CBC, PT #### [facility] [address] [place] [address] Lymphocytes [#/volume] in Bl ood by Automated countOrdered By: Comfort Ratliffomar on 07-22-2024 Lymphocytes (Bld) [#/Vol] 1.7 10*3/uL Normal 1.00-4.8 [facility] Comment on above: Performed By: #### H EPATIC, HS TROP, BNP, BMP, CK, PTT, CBC, PT #### [facility] [address] [place] [address] Lymphocytes/100 leukocytes i n Blood by Automated countOrdered By: Comfort Ratliffomar on 07-22-2024 Lymphocytes/100 WBC (Bld) 31.4 % Normal . [facility] Comment on above: Performed By: #### H EPATIC, HS TROP, BNP, BMP, CK, PTT, CBC, PT #### [address] MCH [Entitic mass] by Automa remberto countOrdered By: Comfort Ontiverosr on 07-22-2024 MCH (RBC) [Entitic mass] 30.3 pg Normal 24.7-34.3 [facility] Comment on above: Performed By: #### H EPATIC, HS TROP, BNP, BMP, CK, PTT, CBC, PT #### [address] MCHC Auto (RBC) [Mass/Vol]Or dered By: Comfort Ontiverosr on 07-22-2024 MCHC (RBC) [Mass/Vol] 35.3 g/dL High 32.0-35.0 [facility] MCV [Entitic volume] by Auto mated countOrdered By: Comfort Ratliffomar on 07-22-2024 MCV (RBC) [Entitic vol] 85.8 fL Normal 80-100 [facility] Comment on above: Performed By: #### H EPATIC, HS TROP, BNP, BMP, CK, PTT, CBC, PT #### [address] Neutrophils [#/volume] in Bl ood by Automated countOrdered By: Comfort Ontiverosr on 07-22-2024 Neutrophils (Bld) [#/Vol] 3.3 10*3/uL Normal 1.8-7.7 [facility] Comment on above: Performed By: #### H EPATIC, HS TROP, BNP, BMP, CK, PTT, CBC, PT #### [address] No Panel InformationOrdered By: Comfort Ontiverosr on 07-22-2024 Estimated GFR (CKD-EPI) 34.723 mL/Min [facility] Creatinine Clearance (Chem 35.10 [facility] Nucleated erythrocytes [Pres ence] in Blood by Automated countOrdered By: Comfort Ratliffomar on 07-22-2024 Nucleated RBC Auto Ql (Bld) 0.1 /100{WBC} 0-0.5 [facility] Platelet mean volume [Entiti c volume] in Blood by Automated countOrdered By: Comfort Ratliffomar on 07-22-2024 Platelet mean volume (Bld) [Entitic vol] 7.3 fL Normal 6.3-10.7 [facility] Comment on above: Performed By: #### H EPATIC, HS TROP, BNP, BMP, CK, PTT, CBC, PT #### [facility] [address] [place] [address] [place] Platelets [#/volume] in Bloo d by Automated countOrdered By: Comfort Ratliffomar on 07-22-2024 Platelets (Bld) [#/Vol] 141 10*3/uL Low 150-450 [facility] Comment on above: Performed By: #### H EPATIC, HS TROP, BNP, BMP, CK, PTT, CBC, PT #### [facility] [address] [place] [address] [place] Potassium [Moles/volume] in Serum or PlasmaOrdered By: Comfort Monteiro on 07-22-2024 Potassium [Moles/Vol] 4.0 mmol/L Normal 3.5-5.1 [facility] Comment on above: Performed By: #### H EPATIC, HS TROP, BNP, BMP, CK, PTT, CBC, PT #### [facility] [address] [place] [address] [place] Protein [Mass/volume] in Ser um or PlasmaOrdered By: Obalissa Ratliffomar on 07-22-2024 Protein [Mass/Vol] 6.3 g/dL Low 6.4-8.9 [facility] Comment on above: Performed By: #### H EPATIC, HS TROP, BNP, BMP, CK, PTT, CBC, PT #### [address] Serum globulin measurement b y calculation (mass/volume)Ordered By: Comfort Monteiro on 07-22-2024 Globulin (S) [Mass/Vol] 2.4 g/dL [facility] Comment on above: Performed By: #### H EPATIC, HS TROP, BNP, BMP, CK, PTT, CBC, PT #### [address] Serum or plasma albumin/glob ulin mass ratioOrdered By: Comfort Ratliffomar on 07-22-2024 Albumin/Globulin [Mass ratio] 1.6 {ratio} [facility] Comment on above: Performed By: #### H EPATIC, HS TROP, BNP, BMP, CK, PTT, CBC, PT #### [address] Serum or plasma anion gap de terminationOrdered By: Comfort Monteiro on 07-22-2024 Anion gap [Moles/Vol] 16.1 mmol/L High 6.0-15.0 [facility] Comment on above: Performed By: #### H EPATIC, HS TROP, BNP, BMP, CK, PTT, CBC, PT #### [address] Sodium [Moles/volume] in Ser um or PlasmaOrdered By: Comfort Monteiro on 07-22-2024 Sodium [Moles/Vol] 141 mmol/L Normal 136-145 [facility] Comment on above: Performed By: #### H EPATIC, HS TROP, BNP, BMP, CK, PTT, CBC, PT #### [address] US carotid doppler BIon US carotid doppler BI [facility] [place] [address] [place] [address] Ultrasound Report Signed Patient: Anh Tejeda MR#: [id number] 036 : 1950 Acct:[id number] Age/Sex: 73 / F ADM Date: 07/21/24 Loc: Room: [address] [place] [address] Type: ADM INOo Attending Dr: Comfort Monteiro MD Ordering Provider: Comfort Monteiro MD Date of Service: 07/21/24 US/US carotid doppler BI: r/o DEB, stroke workup Copies to: Comfort Monteiro MD CAROTID DUPLEX INDICATION: A aphasia. PROCEDURE: Color-flow duplex scanning is used to interrogate the extracranial carotid arterial system, as well as both vertebral arteries. The proximal right internal carotid artery shows a highest peak systolic velocity of 68.8 cm/s with an end-diastolic velocity of 16.7 cm/s . The mid internal carotid artery measures 101 cm/s peak systolic with an end-diastolic velocity of 25.1 cm/s . The distal segment measures 97.4 cm/s peak systolic with an end diastolic velocity of 26.1 cm/s . The velocities of the right common carotid artery are 100 cm/s peak systolic and 19.9 cm/s end- diastolic proximally and 79.6 cm/s peak systolic and 15.2 cm/s end-diastolic distally. The peak systolic velocity ratio of the internal to the common carotid artery is 1.27 . The right external carotid artery measures 95.3 cm/s peak systolic. The right vertebral artery is patent at 49.6 cm/s peak systolic and with antegrade flow. The proximal left internal carotid artery shows a highest peak systolic velocity of 63.6 cm/s with an end-diastolic velocity of 13.1 cm/s . The mid internal carotid artery measures 76.7 cm/s peak systolic with an end-diastolic velocity of 19.2 cm/s . The distal segment measures 99.3 cm/s peak systolic with an end diastolic velocity of 25.5 cm/s . The velocities of the left common carotid artery are 87.2 cm/s peak systolic and 14.6 cm/s end-diastolic proximally and 87.3 cm/s peak systolic and 14.1 cm/s end-diastolic distally. The peak systolic velocity ratio of the internal to the common carotid artery is 0.88 . The left external carotid artery measures 85.9 cm/s peak systolic. The left vertebral artery is patent at 62.8 cm/s peak systolic with antegrade flow. US/US carotid doppler BI IMPRESSION: NO HEMODYNAMICALLY SIGNIFICANT STENOSIS OF EITHER EXTRACRANIAL INTERNAL CAROTID ARTERY. BOTH VERTEBRAL ARTERIES ARE PATENT WITH ANTEGRADE FLOW. Impression dictated by: Brett Barajas MD07/22/2024 11:33 AM Dictation Location: [place] [address] Tech: Sonja Javed Transcribed By: [facility] 07/22/24 1133 Dictated By: Brett Barajas MD 07/22/24 1133 Signed By: 07/22/24 1133 Normal [facility] Urea nitrogen [Mass/volume] in Serum or PlasmaOrdered By: Comfort Monteiro on 07-22-2024 Urea nitrogen [Mass/Vol] 37 mg/dL High 06-09 [facility] Comment on above: Performed By: #### H EPATIC, HS TROP, BNP, BMP, CK, PTT, CBC, PT #### [facility] [address] [place] [address] A1C with Estimated Average G kenia 07-21-2024 Glucose [Mass/Vol] 174 mg/dL Normal [facility] Comment on above: Order Comment: Comme nt add Result Comment: PERF ORMED BY: [place] [address] PATHOLOGIST SPECIAL MACHINE OPERATOR THERESA MULLER M.D. Performed By: #### H EPATIC, HS TROP, BNP, BMP, CK, PTT, CBC, PT #### [facility] [address] [place] [address] AChR Binding Abs, Serumon AChR Binding Abs, Serum <0.03 Normal 0.00-0.24 [facility] Comment on above: Result Comment: Nega tive: 0.00 - 0.24 Borderline: 0.25 - 0.40 Positive: >0.40 Performed at: - [facility] [id number] Embedded Software Engineer: Keith Quijano MD, Phone: [phone] Performed By: #### H EPATIC, HS TROP, BNP, BMP, CK, PTT, CBC, PT #### [facility] [address] [place] [address] AChR Blocking Abs, Serumon 0 07-21-2024 AChR Blocking Abs, Serum 19 % Normal 0-25 [facility] Comment on above: Result Comment: This test was developed and its performance characteristics determined by [facility]. It has not been cleared or approved by the Food and Drug Administration. Negative: 0 - 25 Borderline: 26 - 30 Positive: >30 Performed at: [address] [id number] Embedded Software Engineer: Keith Quijano MD, Phone: [phone] Performed By: #### H EPATIC, HS TROP, BNP, BMP, CK, PTT, CBC, PT #### [address] AChR Modulating Abs, Serumon 07-21-2024 AChR Modulating Abs, Serum 8 % Normal 0-45 [facility] Comment on above: Result Comment: This test was developed and its performance characteristics determined by [facility]. It has not been cleared or approved by the Food and Drug Administration. Interpretive Information: Negative: 0 - 45% Positive: > 45% No single value for AChR-modulating antibody should be used as a sole basis for diagnosis or response to therapy. Performed at: [address] [id number] Embedded Software Engineer: Keith Quijano MD, Phone: [phone] PERFORMED BY: [place] [address] PATHOLOGIST SPECIAL MACHINE OPERATOR THERESA MULLER M.D. Performed By: #### H EPATIC, HS TROP, BNP, BMP, CK, PTT, CBC, PT #### [address] Activated partial thrombopla stin time (aPTT) in platelet poor plasma by coagulation aOrdered By: Bakari Barboza on 07-21-2024 aPTT Coag (PPP) [Time] 35.2 s 25.1-36.5 [facility] Comment on above: A hematocrit value g reater than 55% may lead to inaccurate results in coagulation testing. Patients having hematocrit values >55% require a special collection tube for coagulation studies. Please contact the laboratory at [phone] for redraw instructions. Alanine aminotransferase [En zymatic activity/volume] in Serum or PlasmaOrdered By: Bakari Barboza on 07-21-2024 ALT [Catalytic activity/Vol] 18 U/L Normal 7-52 [facility] Comment on above: Performed By: #### H EPATIC, HS TROP, BNP, BMP, CK, PTT, CBC, PT #### [facility] [address] Albumin [Mass/volume] in Ser um or Plasma by Bromocresol green (BCG) dye binding methoOrdered By: Bakari Barboza on 07-21-2024 Albumin BCG dye [Mass/Vol] 4.1 g/dL 3.5-5.7 [facility] Alkaline phosphatase [Enzyma tic activity/volume] in Serum or PlasmaOrdered By: Bakari Barboza on 07-21-2024 ALP [Catalytic activity/Vol] 147 U/L High 34-104 [facility] Comment on above: Performed By: #### H EPATIC, HS TROP, BNP, BMP, CK, PTT, CBC, PT #### [facility] [address] [place] [address] [place] Aspartate aminotransferase [ Enzymatic activity/volume] in Serum or PlasmaOrdered By: Bakari Barboza on 07-21-2024 AST [Catalytic activity/Vol] 17 U/L Normal 13-39 [facility] Comment on above: Performed By: #### H EPATIC, HS TROP, BNP, BMP, CK, PTT, CBC, PT #### [facility] [address] [place] [address] [place] Automated basophil %Ordered By: Bakari Barboza on 07-21-2024 Basophils/100 WBC (Bld) 0.7 % Normal . [facility] Comment on above: Performed By: #### H EPATIC, HS TROP, BNP, BMP, CK, PTT, CBC, PT #### [facility] [address] [place] [address] [place] Automated basophil countOrde red By: Bakari Barboza on 07-21-2024 Basophils (Bld) [#/Vol] 0.0 10*3/uL Normal 0.0-0.2 [facility] Comment on above: Result Comment: PERF ORMED BY: [place] [address] PATHOLOGIST SPECIAL MACHINE OPERATOR THERESA MULLER M.D. Performed By: #### H EPATIC, HS TROP, BNP, BMP, CK, PTT, CBC, PT #### [address] Automated blood monocyte cou ntOrdered By: Bakari Barboza on 07-21-2024 Monocytes (Bld) [#/Vol] 0.2 10*3/uL Normal 0.0-0.8 [facility] Comment on above: Performed By: #### H EPATIC, HS TROP, BNP, BMP, CK, PTT, CBC, PT #### [address] Automated eosinophil %Ordere d By: Bakari Barboza on 07-21-2024 Eosinophils/100 WBC (Bld) 2.5 % Normal . [facility] Comment on above: Performed By: #### H EPATIC, HS TROP, BNP, BMP, CK, PTT, CBC, PT #### [address] Automated eosinophil countOr dered By: Bakari Barboza on 07-21-2024 Eosinophils (Bld) [#/Vol] 0.1 10*3/uL Normal 0.0-0.45 [facility] Comment on above: Performed By: #### H EPATIC, HS TROP, BNP, BMP, CK, PTT, CBC, PT #### [address] Automated monocyte %Ordered By: Bakari Barboza on 07-21-2024 Monocytes/100 WBC (Bld) 4.0 % Normal . [facility] Comment on above: Performed By: #### H EPATIC, HS TROP, BNP, BMP, CK, PTT, CBC, PT #### [address] Automated neutrophil %Ordere d By: Bakari Barboza on 07-21-2024 Neutrophils/100 WBC (Bld) 68.2 % Normal . [facility] Comment on above: Performed By: #### H EPATIC, HS TROP, BNP, BMP, CK, PTT, CBC, PT #### [address] BNP ser/plasOrdered By: Jose Barboza on 07-21-2024 Natriuretic peptide B (Bld) [Mass/Vol] 42.0 pg/mL Normal 5-100 [facility] Comment on above: Result Comment: PERF ORMED BY: [place] [address] PATHOLOGIST SPECIAL MACHINE OPERATOR THERESA MULLER M.D. Performed By: #### H EPATIC, HS TROP, BNP, BMP, CK, PTT, CBC, PT #### [address] Basic Metabolic Panelon Creatinine Clr Calc Pharmacy 33.01 Normal [facility] Comment on above: Result Comment: PERF ORMED BY: [place] [address] PATHOLOGIST SPECIAL MACHINE OPERATOR THERESA MULLER M.D. Performed By: #### H EPATIC, HS TROP, BNP, BMP, CK, PTT, CBC, PT #### [address] GFR/1.73 sq M.predicted MDRD (S/P/Bld) [Vol rate/Area] 32.449 mL/min/{1.73_m2} Normal [facility] Comment on above: Performed By: #### H EPATIC, HS TROP, BNP, BMP, CK, PTT, CBC, PT #### [address] Bilirubin Test strip Ql (U)O rdered By: Bakari Barboza on 07-21-2024 Bilirubin Ql (U) Negative Negative [facility] Bilirubin.direct [Mass/volum e] in Serum or PlasmaOrdered By: Bakari Barboza on 07-21-2024 Bilirubin.direct [Mass/Vol] 0.10 mg/dL 0.03-0.18 [facility] Bilirubin.total [Mass/volume ] in Serum or PlasmaOrdered By: aBkari Barboza on 07-21-2024 Bilirubin [Mass/Vol] 0.4 mg/dL Normal 0.3-1.0 [facility] Comment on above: Performed By: #### H EPATIC, HS TROP, BNP, BMP, CK, PTT, CBC, PT #### [facility] [address] COVID CepheidOrdered By: Yoseph Monteiro on 07-21-2024 SARS-CoV-2 (COVID-19) Ab IA Ql Negative Negative [facility] Comment on above: This is a duplicate Cepheid Xpert Xpress CoV-2/Flu/RSV Plus RNA by RT-PCR result to be used for statistical tracking purpose only. SARS-CoV-2 (COVID-19) RNA DIPESH+probe Ql (Unsp spec) [facility] COVID-19 / Flu A/B / RSV PCR on 07-21-2024 SARS-CoV-2 (COVID-19) RNA DIPESH+probe Ql (Unsp spec) COVID-19 Cepheid Result Negative for SARS-CoV-2 RNA by RT-PCR Flu A Cepheid Result Negative for Flu A RNA by RT-PCR Flu B Cepheid Result Negative for Flu B RNA by RT-PCR RSV Cepheid Result Negative for RSV RNA by RT-PCR COVID19 Blank Space Reference: Negative COVID19 Blank Space Cepheid Disclaimer The Cepheid Xpert Xpress CoV-2/Flu/RSV Plus has Cepheid Disclaimer not been FDA cleared or approved; this test has Cepheid Disclaimer been authorized by FDA under an EUA for use by Cepheid Disclaimer authorized laboratories; this test has been Cepheid Disclaimer authorized only for the simultaneous qualitative Cepheid Disclaimer detection and differentiation of nucleic acids from Cepheid Disclaimer SARS-CoV-2, influenza A, influenza B, and Cepheid Disclaimer respiratory syncytial virus (RSV), and not for any Cepheid Disclaimer other viruses or pathogens; and this test is only Cepheid Disclaimer authorized for the duration of the declaration that Cepheid Disclaimer circumstances exist justifying the authorization of Cepheid Disclaimer emergency use of in vitro diagnostic tests for Cepheid Disclaimer detection and/or diagnosis of COVID-19 under Cepheid Disclaimer Section 564(b)(1) of the Act, 21 U.S.C. 360bbb- Cepheid Disclaimer 3(b)(1), unless the authorization is terminated or Cepheid Disclaimer revoked sooner. PERFORMED BY: [place] [address] PATHOLOGIST SPECIAL MACHINE OPERATOR THERESA MULLER M.D. [place] [facility] Comment on above: Performed By: #### H EPATIC, HS TROP, BNP, BMP, CK, PTT, CBC, PT #### [address] head/brain wo conon 07-21 CT head/brain wo con [facility] [place] [address] [place] [address] CT Scan Report Signed Patient: Anh Tejeda MR#: [id number] 036 : 1950 Acct:[id number] Age/Sex: 73 / F ADM Date: 07/21/24 Loc: ER Room: Type: [facility] ER Attending Dr: Copies to: Bakari Barboza DO Ordering Provider: Bakari Barboza DO Date of Service: 07/21/24 CT/CT head/brain wo con: slurred speech CT head/brain wo con 07/21/2024 10:06 AM SIGNS AND SYMPTOMS: Slurred speech/expressive aphasia TECHNIQUE:Multi-detector CT axial slices of the brain were obtained without IV contrast. CT was performed with one or more of the following dose reduction techniques: Automated exposure control, adjustment of the mA and/or kV according to patient size, or use of iterative reconstruction technique. COMPARISON: 03/11/2023 FINDINGS: There is no shift of the midline structures, acute intracranial bleeding, mass effects, or evidence of acute ischemia. There is a remote lacunar infarct in the left frontal periventricular white matter similar to the previous exam. There is mild periventricular white matter hypoattenuation. Mild age-appropriate cortical atrophy is noted. The ventricular system is normal in size. The brainstem and the cerebellum are unremarkable. The visualized intraorbital contents, the visualized paranasal sinuses, and the infratemporal soft tissues show no acute abnormality. The osseous structures in the skull base and the calvarium show no abnormality. CT/CT head/brain wo con IMPRESSION: No acute intracranial pathology. 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 Impression dictated by: Riki Garnica M.D.07/21/2024 10:57 AM Dictation Location: [place] [address] Transcribed By: [facility] 07/21/24 105 Dictated By: Riki Garnica II, MD 07/21/241053 Signed By: 07/21/24 105 Normal [facility] Calcium [Mass/volume] in Ser um or PlasmaOrdered By: Bakari Barboza on 07-21-2024 Calcium [Mass/Vol] 9.3 mg/dL Normal 8.6-10.3 [facility] Comment on above: Performed By: #### H EPATIC, HS TROP, BNP, BMP, CK, PTT, CBC, PT #### [facility] [address] Carbon dioxide, total [Moles /volume] in Serum or PlasmaOrdered By: Bakari Barboza on 07-21-2024 CO2 [Moles/Vol] 26.3 mmol/L Normal 21.0-31.0 [facility] Comment on above: Performed By: #### H EPATIC, HS TROP, BNP, BMP, CK, PTT, CBC, PT #### [facility] [address] [place] [id number] [facility] Cepheid COVID PCR Negativeon 07-21-2024 SARS-CoV-2 (COVID-19) RNA DIPESH+probe Ql (Unsp spec) Negative Normal Negative [facility] Comment on above: Result Comment: This is a duplicate Cepheid Xpert Xpress CoV-2/Flu/RSV Plus RNA by RT-PCR result to be used for statistical tracking purpose only. PERFORMED BY: [place] [address] PATHOLOGIST SPECIAL MACHINE OPERATOR THERESA MULLER M.D. Performed By: #### H EPATIC, HS TROP, BNP, BMP, CK, PTT, CBC, PT #### [address] Chloride [Moles/volume] in S hilda or PlasmaOrdered By: Bakari Barboza on 07-21-2024 Chloride [Moles/Vol] 103 mmol/L Normal 98-107 [facility] Comment on above: Performed By: #### H EPATIC, HS TROP, BNP, BMP, CK, PTT, CBC, PT #### [address] Cholesterol [Mass/volume] in Serum or PlasmaOrdered By: Comfort Monteiro on 07-21-2024 Cholesterol [Mass/Vol] 112 mg/dL Low 140-200 [facility] Comment on above: Chol less than 200 m g/dl low riskChol 201-239 mg/dl borderline riskChol 240 mg/dl and greater high risk Order Comment: Comme nt add Result Comment: Chol less than 200 mg/dl low risk Chol 201-239 mg/dl borderline risk Chol 240 mg/dl and greater high risk Performed By: #### H EPATIC, HS TROP, BNP, BMP, CK, PTT, CBC, PT #### [address] Cholesterol in LDL Calc [Mas s/Vol]Ordered By: Comfort Monteiro on 07-21-2024 Cholesterol in LDL [Mass/Vol] 46 mg/dL 0-100 [facility] Comment on above: LDL ATP III CLASSIFI CATIONLDL less than 100 mg/dL OptimalLDL 100-129 mg/dL Near or above optimalLDL 130-159 mg/dL Borderline highLDL 160-189 mg/dL HighLDL greater than 189 mg/dL Very high Cholesterol in VLDL Calc [Ma ss/Vol]Ordered By: Comfort Monteiro on 07-21-2024 Cholesterol in VLDL [Mass/Vol] 26 mg/dL [facility] Color of Urine by AutoOrdere d By: Bakari Barboza on 07-21-2024 Color (U) Light-yellow Normal Yellow [facility] Comment on above: Order Comment: Name Collection Type:: Clean-Voided Midstream Performed By: #### H EPATIC, HS TROP, BNP, BMP, CK, PTT, CBC, PT #### [address] Complete Blood Count Auto Di ffon 07-21-2024 Mean Corpuscular HGB Conc 34.8 g/dL Normal 32.0-35.0 [facility] Comment on above: Performed By: #### H EPATIC, HS TROP, BNP, BMP, CK, PTT, CBC, PT #### [place] [address] [place] Monocytes/100 WBC (Bld) 20.33 % High 0.00-20.00 [facility] Comment on above: Result Comment: For adults in ED, MDW > 20.0 may be associated with a higher risk of sepsis during the first 12 hrs of hospital admission Performed By: #### H EPATIC, HS TROP, BNP, BMP, CK, PTT, CBC, PT #### [place] [address] [place] NRBC% 0.0 /100{WBC} Normal 0-0.5 [facility] Comment on above: Performed By: #### H EPATIC, HS TROP, BNP, BMP, CK, PTT, CBC, PT #### [place] [address] [place] Creatine kinase [Enzymatic a ctivity/volume] in Serum or PlasmaOrdered By: Bakari Barboza on 07-21-2024 CK [Catalytic activity/Vol] 56 U/L Normal 30-223 [facility] Comment on above: Performed By: #### H EPATIC, HS TROP, BNP, BMP, CK, PTT, CBC, PT #### [facility] [address] [place] [id number] [facility] Creatinine [Mass/volume] in Serum or PlasmaOrdered By: Bakari Barboza on 07-21-2024 Creatinine [Mass/Vol] 1.64 mg/dL High 0.60-1.20 [facility] Comment on above: Performed By: #### H EPATIC, HS TROP, BNP, BMP, CK, PTT, CBC, PT #### [facility] [address] [place] [id number] [facility] ECG 12 lead ECGon 07-21-2024 ECG 12 lead ECG [facility] Main [place] [address] [place] [address] Electrocardiograph Report Signed Patient: Anh Tejeda MR#: [id number] 036 : 1950 Acct:[id number] Age/Sex: 73 / F ADM Date: 07/21/24 Loc: Room: [address] [place] [address] Type: ADM INOo Attending Dr: Comfort Monteiro MD Ordering Provider: Bakari Barboza DO Date of Service: 07/21/2404/08/1006 ECG/ECG 12 lead ECG: Arrhythmia/Palpitations Copies to: Test Reason : Blood Pressure : */* mmHG Vent. Rate : 73 BPM Atrial Rate : 73 BPM P-R Int : 172 ms QRS Dur : 76 ms QT Int : 406 ms P-R-T Axes : 49 7 3 degrees QTcB Int : 447 ms Normal sinus rhythm Low voltage QRS Cannot rule out Anterior infarct (cited on or before 29-Jan-2009) Abnormal ECG When compared with ECG of 11-Mar-2023 16:09, No significant change was found Confirmed by Bakari Barboza DO ([id number]) on 07/21/2024 3:19:23 PM Referred By: Electronically Signed By: Bakari Barboza DO Transcribed By: [facility] Signed By Bakari Barboza DO 4 [id number] Normal [facility] Erythrocyte distribution wid th [Ratio] by Automated countOrdered By: Bakari Barboza on 07-21-2024 Erythrocyte distribution width (RBC) [Ratio] 16.4 % High 11.9-15.3 [facility] Comment on above: Performed By: #### H EPATIC, HS TROP, BNP, BMP, CK, PTT, CBC, PT #### [facility] [address] Erythrocytes [#/volume] in B lood by Automated countOrdered By: Bakari Barboza on 07-21-2024 RBC (Bld) [#/Vol] 3.66 10*6/uL Normal 3.60-5.00 [facility] Comment on above: Performed By: #### H EPATIC, HS TROP, BNP, BMP, CK, PTT, CBC, PT #### [facility] [address] Glucose Poct Glucometerson 0 07-21-2024 Glucose [Mass/Vol] 249 mg/dL Normal [facility] Comment on above: Result Comment: [place] Glucose Reference Range is dependent on time and content of last meal. Glucose of more than 200 mg/dL in a nonstressed, ambulatory subject supports the diagnosis of Diabetes Mellitus. PERFORMED BY: [place] [address] PATHOLOGIST SPECIAL MACHINE OPERATOR THERESA MULLER M.D. Performed By: #### G CADEN #### Point of Care testing , Glucose [Mass/volume] in Ser um or PlasmaOrdered By: Bakari Barboza on 07-21-2024 Glucose [Mass/Vol] 334 mg/dL High 70-100 [facility] Comment on above: ADA recommended refe rence rangeRandom Glucose Reference Range is dependent on time and content of last meal. Glucose of more than 200 mg/dL in a nonstressed, ambulatory subject supports the diagnosis of Diabetes Mellitus. Result Comment: [place] Glucose Reference Range is dependent on time and content of last meal. Glucose of more than 200 mg/dL in a nonstressed, ambulatory subject supports the diagnosis of Diabetes Mellitus. ADA recommended reference range Performed By: #### H EPATIC, HS TROP, BNP, BMP, CK, PTT, CBC, PT #### [address] Glucose [Mass/volume] in Uri ne by Test stripOrdered By: Bakari Barboza on 07-21-2024 Glucose Test strip (U) [Mass/Vol] >=1000 mg/dL High Normal [facility] Glucose mean value [Mass/vol ume] in Blood Estimated from glycated hemoglobinOrdered By: Comfort Ontiverosr on 07-21-2024 Average glucose Estimated from glycated hemoglobin (Bld) [Mass/Vol] 174 mg/dL [facility] Hematocrit [Volume Fraction] of Blood by Automated countOrdered By: Bakari Barboza on 07-21-2024 Hematocrit (Bld) [Volume fraction] 31.7 % Low 34.0-46.4 [facility] Comment on above: Performed By: #### H EPATIC, HS TROP, BNP, BMP, CK, PTT, CBC, PT #### [address] Hemoglobin A1c percentageOrd ered By: Comfort Monteiro on 07-21-2024 HbA1c (Bld) [Mass fraction] 7.7 % High 4.3-5.6 [facility] Comment on above: Increased risk for d iabetes: 5.7 - 6.4diabetes: >6.4glycemic control for adults with diabetes: <7.0 Order Comment: Comme nt add Result Comment: Incr eased risk for diabetes: 5.7 - 6.4 diabetes: >6.4 glycemic control for adults with diabetes: <7.0 Performed By: #### H EPATIC, HS TROP, BNP, BMP, CK, PTT, CBC, PT #### [address] Hemoglobin Test strip Ql (U) Ordered By: Bakari Barboza on 07-21-2024 Hemoglobin Ql (U) Negative Negative [facility] Hemoglobin [Mass/volume] in BloodOrdered By: Bakari Barboza on 07-21-2024 Hemoglobin (Bld) [Mass/Vol] 11.0 g/dL Low 11.8-15.4 [facility] Comment on above: Performed By: #### H EPATIC, HS TROP, BNP, BMP, CK, PTT, CBC, PT #### [facility] [address] Hepatic Panelon 07-21-2024 Albumin [Mass/Vol] 4.1 g/dL Normal 3.5-5.7 [facility] Comment on above: Performed By: #### H EPATIC, HS TROP, BNP, BMP, CK, PTT, CBC, PT #### [facility] [address] Bilirubin,Indirect 0.3 mg/dL Normal [facility] Comment on above: Performed By: #### H EPATIC, HS TROP, BNP, BMP, CK, PTT, CBC, PT #### [facility] [address] Bilirubin.indirect [Mass/Vol] 0.10 mg/dL Normal 0.03-0.18 [facility] Comment on above: Performed By: #### H EPATIC, HS TROP, BNP, BMP, CK, PTT, CBC, PT #### [facility] [address] INR in Platelet poor plasma by Coagulation assayOrdered By: Bakari Barboza on 07-21-2024 INR Coag (PPP) [Relative time] 1.1 {INR} Normal [facility] Comment on above: INR Therapeutic Rang e A) Pre- and Peroperative OAT started two weeks before surgery. NOT HIP SURGERY: 1.5 - 2.5 HIP SURGERY: 2 - 3B) Primary and secondary prevention of venous THROMBOSIS: 2 - 3C) Active venous thrombosis, pulmonary embolismand prevention of recurrent venous thrombosis: 2 - 3D) Prevention of arterial thromboembolismincluding patients with mechanical heart valves: 3 - 4.5 Result Comment: INR Therapeutic Range A) Pre- [...] valves: 3 - 4.5 Performed By: #### H EPATIC, HS TROP, BNP, BMP, CK, PTT, CBC, PT #### [facility] [address] Ketones [Presence] in Urine by Test stripOrdered By: Bakari Barboza on 07-21-2024 Ketones Ql (U) Negative Normal Negative [facility] Comment on above: Order Comment: Name Collection Type:: Clean-Voided Midstream Performed By: #### H EPATIC, HS TROP, BNP, BMP, CK, PTT, CBC, PT #### [facility] [address] Leukocyte esterase [Presence ] in Urine by Test stripOrdered By: Bakari Barboza on 07-21-2024 Leukocyte esterase Test strip Ql (U) Negative Normal Negative [facility] Comment on above: Order Comment: Name Collection Type:: Clean-Voided Midstream Performed By: #### H EPATIC, HS TROP, BNP, BMP, CK, PTT, CBC, PT #### [facility] [address] [place] [address] Leukocytes [#/volume] correc remberto for nucleated erythrocytes in Blood by Automated counOrdered By: Bakari Barboza on 07-21-2024 WBC corrected for nucl RBC Auto (Bld) [#/Vol] 4.8 10*3/uL 3.8-11.6 [facility] Leukocytes [#/volume] in Blo od by Automated countOrdered By: Bakari Barboza on 07-21-2024 WBC (Bld) [#/Vol] 4.8 10*3/uL Normal 3.8-11.6 [facility] Comment on above: Performed By: #### H EPATIC, HS TROP, BNP, BMP, CK, PTT, CBC, PT #### [facility] [address] [place] [address] Lipid Panelon 07-21-2024 LDL Cholesterol,Calculate d 46 mg/dL Normal 0-100 [facility] Comment on above: Order Comment: Comme nt add Result Comment: LDL ATP III CLASSIFICATION LDL less than 100 mg/dL Optimal LDL 100-129 mg/dL Near or above optimal LDL 130-159 mg/dL Borderline high LDL 160-189 mg/dL High LDL greater than 189 mg/dL Very high Performed By: #### H EPATIC, HS TROP, BNP, BMP, CK, PTT, CBC, PT #### [address] Triglyceride w/Reflex 132 mg/dL Normal 0-149 [facility] Comment on above: Order Comment: Comme nt add Result Comment: TRIG ATP III CLASSIFICATION TRIG less than 150 mg/dL Normal TRIG 150-199 mg/dL Borderline high TRIG 200-500 mg/dL High TRIG greater than 500 mg/dL Very high Standard traceable to the Center for Disease Conrtrol and Prevention (CDC) test method. Performed By: #### H EPATIC, HS TROP, BNP, BMP, CK, PTT, CBC, PT #### [address] VLDL CHOLESTEROL 26 mg/dL Normal [facility] Comment on above: Order Comment: Comme nt add Performed By: #### H EPATIC, HS TROP, BNP, BMP, CK, PTT, CBC, PT #### [address] Lymphocytes [#/volume] in Bl ood by Automated countOrdered By: Bakari Barboza on 07-21-2024 Lymphocytes (Bld) [#/Vol] 1.2 10*3/uL Normal 1.00-4.8 [facility] Comment on above: Performed By: #### H EPATIC, HS TROP, BNP, BMP, CK, PTT, CBC, PT #### [address] Lymphocytes/100 leukocytes i n Blood by Automated countOrdered By: Bakari Barboza on 07-21-2024 Lymphocytes/100 WBC (Bld) 24.6 % Normal . [facility] Comment on above: Performed By: #### H EPATIC, HS TROP, BNP, BMP, CK, PTT, CBC, PT #### [address] MCH [Entitic mass] by Automa remberto countOrdered By: Bakari Barboza on 07-21-2024 MCH (RBC) [Entitic mass] 30.2 pg Normal 24.7-34.3 [facility] Comment on above: Performed By: #### H EPATIC, HS TROP, BNP, BMP, CK, PTT, CBC, PT #### [facility] [address] [place] [address] MCHC Auto (RBC) [Mass/Vol]Or dered By: Bakari Barboza on 07-21-2024 MCHC (RBC) [Mass/Vol] 34.8 g/dL 32.0-35.0 [facility] MCV [Entitic volume] by Auto mated countOrdered By: Bakari Barboaz on 07-21-2024 MCV (RBC) [Entitic vol] 86.7 fL Normal 80-100 [facility] Comment on above: Performed By: #### H EPATIC, HS TROP, BNP, BMP, CK, PTT, CBC, PT #### [facility] [address] [place] [address] MR head/brain wo conon 07-21 MR head/brain wo con [facility] [place] [address] [place] [address] MRI Report Signed Patient: Anh Tejeda MR#: [id number] 036 : 1950 Acct:[id number] Age/Sex: 73 / F ADM Date: 07/21/24 Loc: 3T Room: [address] [place] [address] Type: ADM INOo Attending Dr: Comfort Monteiro MD Copies to: Comfort Monteiro MD Ordering Provider: Comfort Monteiro MD Date of Service: 07/21/24 MR/MR head/brain wo con: slurred speech, r/o CVA MR head/brain wo con 07/21/2024 12:41 PM SIGN AND SYMPTOMS: Heart palpitations, slurred speech PROTOCOL: Multiplanar multisequence MR images of the brain were obtained without IV contrast COMPARISON: 07/21/2024 and 03/11/2023 FINDINGS: Extra axial spaces: There is age-related cortical atrophy. Hemorrhage: None. Ventricular system: Within normal limits. Basal cisterns: Within normal limits and not effaced. Cerebral parenchyma: T2 and FLAIR hyperintense foci are noted in the periventricular and subcortical white matter. There is a remote infarct in the left frontal periventricular white matter which is unchanged. Midline shift: None.. Cerebellum: Within normal limits. Brainstem: Within normal limits. OTHER: Calvarium: Normal marrow signal. Vascular system: Satisfactory flow voids within the anterior and posterior circulation. Visualized Paranasal sinuses: Within normal limits. Visualized Orbits: Within normal limits. Visualized upper cervical spine: Within normal limits. Sella and skull base: Within normal limits. MR/MR head/brain wo con IMPRESSION: No acute intracranial pathology. Similar chronic age-related neurodegenerative changes are noted as above. There is an unchanged remote lacunar infarct in the left frontal periventricular white matter. Impression dictated by: Riki Garnica M.D.07/21/2024 4:56 PM Dictation Location: [place] [address] Transcribed By: [facility] 07/21/241655 Dictated By: Riki Garnica II, MD 07/21/241652 Signed By: 07/21/24 165 Normal [facility] Magnesium [Mass/volume] in S hilda or PlasmaOrdered By: Ottoniel Bland on 07-21-2024 Magnesium [Mass/Vol] 1.7 mg/dL Low 1.9-2.7 [facility] Comment on above: Result Comment: PERF ORMED BY: [place] [address] PATHOLOGIST SPECIAL MACHINE OPERATOR THERESA MULLER M.D. Performed By: #### H EPATIC, HS TROP, BNP, BMP, CK, PTT, CBC, PT #### [facility] [address] [place] [address] Monocyte distribution width [Entitic volume] in Blood by AutomatedOrdered By: Bakari Barboza on 07-21-2024 Monocyte distribution width Auto (Bld) [Entitic vol] 20.33 % High 0.00-20.00 [facility] Comment on above: For adults in ED, W > 20.0 may be associated with a higher risk of sepsis during the first 12 hrs of hospital admission Muscle specific receptor tyr osine kinase Ab [Units/volume] in Serum by ImmunoassayOrdered By: Ottoniel Bland on 09-05-2024 Muscle specific receptor tyrosine kinase Ab IA Qn (S) <1.0 U/mL . [facility] Comment on above: Reference Range: Neg ative: <1.0 Positive: 1.0 or higher A positive result, in the context of congruent clinical findings, confirms the diagnosis of autoimmune MuSK myasthenia gravis.COMMENTS: - Myasthenia gravis (MG) is caused by auto-antibodies against proteins of the neuromuscular junction. Most cases (about 90%) of generalized MG are anti- acetylcholine receptor (AChR) antibody-positive.(1) - Of generalized MG patients who lack anti-AChR antibodies (AChR-seronegative), about 40% are positive for Muscle- Specific Kinase (MuSK) antibody.(1,2) - Though a positive MuSK result is specific for the diagnosis of MuSK MG, a negative MuSK result does not rule out a MG diagnosis. - MuSK antibody levels have been shown to correlate with disease severity.(3) Serial measurements may be useful to follow treatment.References:1. Geri-Loan S et al. J Autoimmunity 2014;52:90-100.2. Fred MENDENHALL et al. PNAS 2013;110(06);65979-83067.3. Thaisioni E et al. Neurology 2006;67:505-507.This test was developed and its performance characteristicsdetermined by [employer]. It has not been cleared or approvedby the Food and Drug Administration.Performed at: [facility] [address] [id number] Director: Trae Olivarez MD, Phone: [phone] Musk Antibody Teston 024 MuSK Antibodies <1.0 Normal . [facility] Comment on above: Result Comment: Refe rence Range: Negative: <1.0 Positive: 1.0 or higher A positive result, in the context of congruent clinical findings, confirms the diagnosis of autoimmune MuSK myasthenia gravis. COMMENTS: - Myasthenia gravis (MG) is caused by auto-antibodies against proteins of the neuromuscular junction. Most cases (about 90%) of generalized MG are anti- acetylcholine receptor (AChR) antibody-positive.(1) - Of generalized MG patients who lack anti-AChR antibodies (AChR-seronegative), about 40% are positive for Muscle- Specific Kinase (MuSK) antibody.(1,2) - Though a positive MuSK result is specific for the diagnosis of MuSK MG, a negative MuSK result does not rule out a MG diagnosis. - MuSK antibody levels have been shown to correlate with disease severity.(3) Serial measurements may be useful to follow treatment. References: 1. Geri-Loan S et al. J Autoimmunity 2014;52:90-100. 2. Fred MENDENHALL et al. PNAS 2013;110(47);20677-43753. 3. Enrique Duran et al. Neurology 2006;67:505-507. This test was developed and its performance characteristics determined by [employer]. It has not been cleared or approved by the Food and Drug Administration. Performed at: [facility] [address] [place] [id number] Embedded Software Engineer: Trae Olivarez MD, Phone: [phone] PERFORMED BY: [place] [address] PATHOLOGIST SPECIAL MACHINE OPERATOR THERESA MULLER M.D. Performed By: #### H EPATIC, HS TROP, BNP, BMP, CK, PTT, CBC, PT #### [facility] [address] [place] [address] Neutrophils [#/volume] in Bl ood by Automated countOrdered By: Bakari Barboza on 07-21-2024 Neutrophils (Bld) [#/Vol] 3.3 10*3/uL Normal 1.8-7.7 [facility] Comment on above: Performed By: #### H EPATIC, HS TROP, BNP, BMP, CK, PTT, CBC, PT #### [facility] [address] [place] [address] Nitrite Test strip Ql (U)Ord ered By: Bakari Barboza on 07-21-2024 Nitrite Ql (U) Negative Negative [facility] No Panel InformationOrdered By: Ottoniel Bland on 07-21-2024 Acetylcholine Receptor Binding Ab <0.03 nmol/L 0.00-0.24 [facility] Comment on above: Negative: 0.00 - 0.2 4 Borderline: 0.25 - 0.40 Positive: >0.40Performed at: [facility] [id number] [place], [place] [id number] Director: Keith Quijano MD, Phone: [phone] No Panel InformationOrdered By: Bakari Barboza on 07-21-2024 Estimated GFR (CKD-EPI) 32.449 mL/Min [facility] Creatinine Clearance (Chem 33.01 [facility] Nucleated erythrocytes [Pres ence] in Blood by Automated countOrdered By: Bakari Barboza on 07-21-2024 Nucleated RBC Auto Ql (Bld) 0.0 /100{WBC} 0-0.5 [facility] Partial Thromboplastin Timeo n 07-21-2024 aPTT Coag (Bld) [Time] 35.2 s Normal 25.1-36.5 [facility] Comment on above: Result Comment: A he matocrit value greater than 55% may lead to inaccurate results in coagulation testing. Patients having hematocrit values >55% require a special collection tube for coagulation studies. Please contact the laboratory at [phone] for redraw instructions. PERFORMED BY: [place] [address] PATHOLOGIST SPECIAL MACHINE OPERATOR THERESA MULLER M.D. Performed By: #### H EPATIC, HS TROP, BNP, BMP, CK, PTT, CBC, PT #### [facility] [address] [place] [address] Platelet mean volume [Entiti c volume] in Blood by Automated countOrdered By: Bakari Barboza on 07-21-2024 Platelet mean volume (Bld) [Entitic vol] 7.1 fL Normal 6.3-10.7 [facility] Comment on above: Performed By: #### H EPATIC, HS TROP, BNP, BMP, CK, PTT, CBC, PT #### [facility] [address] [place] [address] [place] Platelets [#/volume] in Bloo d by Automated countOrdered By: Bakari Barboza on 07-21-2024 Platelets (Bld) [#/Vol] 141 10*3/uL Low 150-450 [facility] Comment on above: Performed By: #### H EPATIC, HS TROP, BNP, BMP, CK, PTT, CBC, PT #### [facility] [address] [place] [id number] [facility] Potassium [Moles/volume] in Serum or PlasmaOrdered By: Bakari Barboza on 07-21-2024 Potassium [Moles/Vol] 4.5 mmol/L Normal 3.5-5.1 [facility] Comment on above: Performed By: #### H EPATIC, HS TROP, BNP, BMP, CK, PTT, CBC, PT #### [facility] [address] [place] [id number] [facility] Protein Test strip (U) [Mass /Vol]Ordered By: Bakari Barboza on 07-21-2024 Protein (U) [Mass/Vol] Negative Negative [facility] Protein [Mass/volume] in Ser um or PlasmaOrdered By: Bakari Barboza on 07-21-2024 Protein [Mass/Vol] 6.6 g/dL Normal 6.4-8.9 [facility] Comment on above: Performed By: #### H EPATIC, HS TROP, BNP, BMP, CK, PTT, CBC, PT #### [facility] [address] Prothrombin time (PT)Ordered By: Bakari Barboza on 07-21-2024 PT Coag (PPP) [Time] 12.3 s Normal 9.0-12.9 [facility] Comment on above: A hematocrit value g reater than 55% may lead to inaccurate results in coagulation testing. Patients having hematocrit values >55% require a special collection tube for coagulation studies. Please contact the laboratory at [phone] for redraw instructions. Result Comment: A he matocrit value greater than 55% may lead to inaccurate results in coagulation testing. Patients having hematocrit values >55% require a special collection tube for coagulation studies. Please contact the laboratory at [phone] for redraw instructions. Performed By: #### H EPATIC, HS TROP, BNP, BMP, CK, PTT, CBC, PT #### [facility] [address] [place] [id number] [facility] Serum acetylcholine receptor blocking antibody/total acetylcholine antibody ratioOrdered By: Ottoniel Bland on 07-21-2024 Acetylcholine receptor blocking Ab/Acetylcholine Ab.total (S) [Molar fraction] 19 % 0-25 [facility] Comment on above: This test was develo ped and its performance characteristicsdetermined by [facility]. It has not been cleared orapproved by the Food and Drug Administration. Negative: 0 - 25 Borderline: 26 - 30 Positive: >30Performed at: [address] [id number] Director: Keith Quijano MD, Phone: [phone] Serum globulin measurement b y calculation (mass/volume)Ordered By: Bakari Barboza on 07-21-2024 Globulin (S) [Mass/Vol] 2.5 g/dL [facility] Comment on above: Performed By: #### H EPATIC, HS TROP, BNP, BMP, CK, PTT, CBC, PT #### [facility] [address] [place] [address] Serum or plasma albumin/glob ulin mass ratioOrdered By: Bakari Barboza on 07-21-2024 Albumin/Globulin [Mass ratio] 1.6 {ratio} [facility] Comment on above: Performed By: #### H EPATIC, HS TROP, BNP, BMP, CK, PTT, CBC, PT #### [address] Serum or plasma anion gap de terminationOrdered By: Bakari Barboza on 07-21-2024 Anion gap [Moles/Vol] 13.2 mmol/L Normal 6.0-15.0 [facility] Comment on above: Performed By: #### H EPATIC, HS TROP, BNP, BMP, CK, PTT, CBC, PT #### [facility] [address] [place] [address] Serum or plasma high density lipoprotein (HDL) cholesterol measurementOrdered By: Comfort Monteiro on 07-21-2024 Cholesterol in HDL [Mass/Vol] 40 mg/dL Normal 23-92 [facility] Comment on above: HDL CHOL ATP-III CLA SSIFICATION Cardiovascular RiskHDL > or equal to 60 mg/dL LOWHDL < 40 mg/dL HIGH Order Comment: Comme nt add Result Comment: HDL CHOL ATP-III CLASSIFICATION Cardiovascular Risk HDL > or equal to 60 mg/dL LOW HDL < 40 mg/dL HIGH Performed By: #### H EPATIC, HS TROP, BNP, BMP, CK, PTT, CBC, PT #### [address] Serum or plasma non-glucuron idated bilirubin measurement (mass/volume)Ordered By: Bakari Barboza on 07-21-2024 Bilirubin.indirect [Mass/Vol] 0.3 mg/dL [facility] Serum or plasma total choles terol/high density lipoprotein (HDL) cholesterol mass ratOrdered By: Comfort Monteiro on 07-21-2024 Cholesterol.total/Cho lesterol in HDL [Mass ratio] 2.8 {ratio} Normal <5.0 [facility] Comment on above: Order Comment: Comme nt add Result Comment: PERF ORMED BY: [place] [address] PATHOLOGIST SPECIAL MACHINE OPERATOR THERESA MULLER M.D. Performed By: #### H EPATIC, HS TROP, BNP, BMP, CK, PTT, CBC, PT #### [address] Sodium [Moles/volume] in Ser um or PlasmaOrdered By: Bakari Barboza on 07-21-2024 Sodium [Moles/Vol] 138 mmol/L Normal 136-145 [facility] Comment on above: Performed By: #### H EPATIC, HS TROP, BNP, BMP, CK, PTT, CBC, PT #### [address] Specific gravity of Urine by RefractometryOrdered By: Bakari Barboza on 07-21-2024 Specific gravity Refractometry (U) [Rel density] 1.018 1.001-1.030 [facility] Comment on above: Rechecked by refract ometer Triglyceride [Mass/volume] i n Serum or PlasmaOrdered By: Comfort Monteiro on 07-21-2024 Triglyceride [Mass/Vol] 132 mg/dL 0-149 [facility] Comment on above: TRIG ATP III CLASSIF ICATIONTRIG less than 150 mg/dL NormalTRIG 150-199 mg/dL Borderline highTRIG 200-500 mg/dL High TRIG greater than 500 mg/dL Very highStandard traceable to the Center for Disease Conrtrol and Prevention (CDC) test method. Troponin I High Sensitivityo n 07-21-2024 Troponin I High Sensitivity 4.4 pg/mL Normal 0.0-15.0 [facility] Comment on above: Result Comment: PERF ORMED BY: [place] [address] PATHOLOGIST SPECIAL MACHINE OPERATOR THERESA MULLER M.D. Performed By: #### H EPATIC, HS TROP, BNP, BMP, CK, PTT, CBC, PT #### [facility] [address] [place] [address] Troponin I.cardiac [Mass/vol ume] in Serum or Plasma by Detection limit <= 0.01 ng/Ordered By: Bakari Barboza on 07-21-2024 Troponin I.cardiac DL <= 0.01 ng/mL [Mass/Vol] 4.4 pg/mL 0.0-15.0 [facility] Urea nitrogen [Mass/volume] in Serum or PlasmaOrdered By: Bakari Barboza on 07-21-2024 Urea nitrogen [Mass/Vol] 43 mg/dL High 7-25 [facility] Comment on above: Performed By: #### H EPATIC, HS TROP, BNP, BMP, CK, PTT, CBC, PT #### [facility] [address] [place] [address] Urinalysison 07-21-2024 Bilirubin,Urine Negative Normal Negative [facility] Comment on above: Order Comment: Name Collection Type:: Clean-Voided Midstream Performed By: #### H EPATIC, HS TROP, BNP, BMP, CK, PTT, CBC, PT #### [facility] [address] [place] [address] Glucose Ql (U) >=1000 High Normal [facility] Comment on above: Order Comment: Name Collection Type:: Clean-Voided Midstream Performed By: #### H EPATIC, HS TROP, BNP, BMP, CK, PTT, CBC, PT #### [address] Nitrite,Urine Negative Normal Negative [facility] Comment on above: Order Comment: Name Collection Type:: Clean-Voided Midstream Performed By: #### H EPATIC, HS TROP, BNP, BMP, CK, PTT, CBC, PT #### [address] Occult Blood,Urine Negative Normal Negative [facility] Comment on above: Order Comment: Name Collection Type:: Clean-Voided Midstream Result Comment: PERF ORMED BY: [place] [address] PATHOLOGIST SPECIAL MACHINE OPERATOR THERESA MULLER M.D. Performed By: #### H EPATIC, HS TROP, BNP, BMP, CK, PTT, CBC, PT #### [address] Protein,Urine Negative Normal Negative [facility] Comment on above: Order Comment: Name Collection Type:: Clean-Voided Midstream Performed By: #### H EPATIC, HS TROP, BNP, BMP, CK, PTT, CBC, PT #### [address] Specificy Placida,Urine 1.018 Normal 1.001-1.030 [facility] Comment on above: Order Comment: Name Collection Type:: Clean-Voided Midstream Result Comment: Rech ecked by refractometer Performed By: #### H EPATIC, HS TROP, BNP, BMP, CK, PTT, CBC, PT #### [address] Urobilinogen,Urine Normal Normal Normal [facility] [facility] Comment on above: Order Comment: Name Collection Type:: Clean-Voided Midstream Performed By: #### H EPATIC, HS TROP, BNP, BMP, CK, PTT, CBC, PT #### [address] Urine appearanceOrdered By: Bakari Barboza on 07-21-2024 Appearance (U) Clear Normal Clear [facility] Comment on above: Order Comment: Name Collection Type:: Clean-Voided Midstream Performed By: #### H EPATIC, HS TROP, BNP, BMP, CK, PTT, CBC, PT #### [address] Urobilinogen Test strip (U) [Mass/Vol]Ordered By: Bakari Barboza on 07-21-2024 Urobilinogen (U) [Mass/Vol] Normal mg/dL Normal [facility] Varicella zoster virus DNA [ Presence] in Cerebral spinal fluid by DIPESH with probe deteOrdered By: Ottoniel Bland on 07-21-2024 VZV DNA DIPESH+probe Ql (CSF) 8 % 0-45 [facility] Comment on above: This test was develo ped and its performance characteristicsdetermined by [employer]. It has not been cleared orapproved by the Food and Drug Administration. Interpretive Information: Negative: 0 - 45% Positive: > 45%No single value for AChR-modulating antibody shouldbe used as a sole basis for diagnosis or responseto therapy.Performed at: [address] [id number] Director: Keith Quijano MD, Phone: [phone] XR chest 1V portableon 07-21 XR chest 1V portable [facility] Main [place] [address] [place] [address] XRay Report Signed Patient: Anh Tejeda MR#: [id number] 036 : 1950 Acct:[id number] Age/Sex: 73 / F ADM Date: 07/21/24 Loc: ER Room: Type: [facility] ER Attending Dr: Copies to: Bakari Barboza DO Ordering Provider: Bakari Barboza DO Date of Service: 07/21/24 XR/XR chest 1V portable: Arrhythmia/Palpitations XR chest 1V portable 07/21/2024 10:06 AM SIGNS AND SYMPTOMS: Intermittent palpitations, slurred speech PROTOCOL: Frontal radiograph of the chest COMPARISON: 02/11/2024 FINDINGS: The trachea is midline. The heart and mediastinal structures are within normal limits. There is perihilar vascular prominence suggesting volume overload. No focal consolidation. The bony thorax is intact. Degenerative changes are noted in the thoracic spine and shoulders. XR/XR chest 1V portable IMPRESSION: There is perihilar vascular prominence suggesting volume overload. No focal consolidation. Impression dictated by: Riki Garnica M.D.07/21/2024 12:02 PM Dictation Location: [place] [address] Transcribed By: [facility] 07/21/24 1202 Dictated By: Riki Garnica II, MD 07/21/24 1200 Signed By: 07/21/24 1202 Normal [facility] pH of Urine by Test stripOrd ered By: Bakari Barboza on 07-21-2024 pH (U) 6.0 [pH] Normal 5.0-9.0 [facility] Comment on above: Order Comment: Name Collection Type:: Clean-Voided Midstream Performed By: #### H EPATIC, HS TROP, BNP, BMP, CK, PTT, CBC, PT #### [address] CNPNon 07-19-2024 CNPN Telephone (HEMASA) ANH TEJEDA ([id number]) 1950 F Date Time Provider Department 07/19/24 DAKSHA BRIDGES HEMASA During your visit today, we recorded the following information about you: Daksha Bridges PA-C 07/19/2024 12:36 PM Signed Please inform patient that she does not need iron at this time TROY Onofre Natalie, RN 07/19/2024 12:49 PM Signed Pt informed of MM message and denies any questions, needs or concerns at this time. Appointment verified. Samantha Mcmahan RN Allergies As of Date: 07/19/2024 Noted Allergy Reaction ACETAMINOPHEN-CODEINE 10/01/2022 14 - Other: See Comments Comments: pt states she is unwilling to try even plain tylenol after this experience even though she states she took tylenol prior to this and had no problems TYLENOL #3 (CODEINE) 09/26/2022 14 - Other: See Comments Comments: Upset stomach Date Reviewed: 07/19/2024 Reviewed by: Daksha Bridges PA-C - Fully Assessed Reason for Visit: Results [95] Prescriptions as of 07/19/2024 - FARXIGA 10 mg tablet TAKE 1 TABLET BY MOUTH EVERYDAY FOR DIABETES - resmetirom (REZDIFFRA) 80 mg tablet once daily. - allopurinol (ZYLOPRIM) 300 mg tablet 300 mg. - JANUVIA 50 mg tablet Take 1 tablet by mouth every afternoon. - albuterol HFA (PROVENTIL HFA, VENTOLIN HFA) 90 mcg/actuation inhaler INHALE 2 PUFFS BY MOUTH EVERY 4 HOURS NEEDED FOR COUGH - magnesium oxide 400 mg magnesium tab Take 1 tablet by mouth once daily. - ASCORBIC ACID, [...] 1,000 Units by mouth once daily. - gabapentin (NEURONTIN) 300 mg capsule Take 300 mg by mouth daily at bedtime. - lisinopril-hydroCHLOROthiaz jennifer (PRINZIDE,ZESTORETIC) 10-12.5 mg per tablet Take 1 tablet by mouth once daily. - glimepiride (AMARYL) 2 mg tablet Take 2 mg by mouth daily with breakfast. - omeprazole (PRILOSEC) 20 mg capsule Take 20 mg by mouth once daily. - rOPINIRole (REQUIP) 0.5 mg tablet Take 0.5 mg by mouth twice daily. Problem List As Of Date 07/19/2024 Noted Resolved Iron deficiency anemia due to chronic blood los*10/03/2022 Stage 3b chronic kidney disease (HCC) [N18.32] 01/29/2024 Encounter Status:Closed by SAMANTHA MCMAHAN on 07/19/24 Normal [facility] CBC W Auto Differential pane l (Bld)on 07-15-2024 Basophils (Bld) [#/Vol] 10*3/uL Normal <0.11 [facility] Comment on above: Order Comment: Speci men Type: BLOOD SPECIMENOrdering Facility: [facility] Address: [address] [place] [address] Performed By: #### 1 4196-0, 27746-2 ####[facility] LABCLIA [id number] [place] [address] Basophils/100 WBC (Bld) 0.3 % Normal [facility] Comment on above: Order Comment: Speci men Type: BLOOD SPECIMENOrdering Facility: [facility] Address: [address] [place] [address] Performed By: #### 1 4196-0, 90218-6 ####[facility] LABCLIA [id number] [place] [address] Differential cell count method Nom (Bld) Auto Normal [facility] Comment on above: Order Comment: Speci men Type: BLOOD SPECIMENOrdering Facility: [facility] Address: [address] [place] [address] Performed By: #### 1 4196-0, 10399-3 ####[facility] LABCLIA [id number] [place] [address] Eosinophils (Bld) [#/Vol] 0.15 10*3/uL Normal <0.46 [facility] Comment on above: Order Comment: Speci men Type: BLOOD SPECIMENOrdering Facility: [facility] Address: [address] [place] [address] Performed By: #### 1 4196-0, 73610-6 ####[facility] LABCLIA [id number] [place] [address] Eosinophils/100 WBC (Bld) 2.0 % Normal [facility] Comment on above: Order Comment: Speci men Type: BLOOD SPECIMENOrdering Facility: [facility] Address: [address] [place] [address] Performed By: #### 1 4196-0, 97550-3 ####[facility] LABIA [id number] [place] [address] Erythrocyte distribution width (RBC) [Ratio] 15.4 % High 11.5-15.0 [facility] Comment on above: Order Comment: Speci men Type: BLOOD SPECIMENOrdering Facility: [facility] Address: [address] [place] [address] Performed By: #### 1 4196-0, 20705-4 ####[facility] LABIA [id number] [place] [address] Hematocrit (Bld) [Volume fraction] 32.6 % Low 36.0-46.0 [facility] Comment on above: Order Comment: Speci men Type: BLOOD SPECIMENOrdering Facility: [facility] Address: [address] [place] [address] Performed By: #### 1 4196-0, 16655-0 ####[facility] LABIA [id number] [place] [address] Hemoglobin (Bld) [Mass/Vol] 11.1 g/dL Low 11.5-15.5 [facility] Comment on above: Order Comment: Speci men Type: BLOOD SPECIMENOrdering Facility: [facility] Address: [address] [place] [address] Performed By: #### 1 4196-0, 89823-2 ####[facility] LABIA [id number] [place] [address] Immature granulocytes (Bld) [#/Vol] 10*3/uL Normal <0.10 [facility] Comment on above: Order Comment: Speci men Type: BLOOD SPECIMENOrdering Facility: [facility] Address: [address] [place] [address] Performed By: #### 1 4196-0, 28228-5 ####[facility] LABCLIA [id number] [place] [address] Immature granulocytes/100 WBC (Bld) 0.3 % Normal [facility] Comment on above: Order Comment: Speci men Type: BLOOD SPECIMENOrdering Facility: [facility] Address: [address] [place] [address] Performed By: #### 1 4196-0, ####[facility] LABCLIA [id number] [place] [address] Lymphocytes (Bld) [#/Vol] 1.52 10*3/uL Normal 1.00-4.00 [facility] Comment on above: Order Comment: Speci men Type: BLOOD SPECIMENOrdering Facility: [facility] Address: [address] [place] [address] Performed By: #### 1 4196-0, ####[facility] LABCLIA [id number] [place] [address] Lymphocytes/100 WBC (Bld) 20.7 % Normal [facility] Comment on above: Order Comment: Speci men Type: BLOOD SPECIMENOrdering Facility: [facility] Address: [address] [place] [address] Performed By: #### 1 4196-0, 28499-9 ####[facility] LABCLIA [id number] [place] [address] MCH (RBC) [Entitic mass] 29.6 pg Normal 26.0-34.0 [facility] Comment on above: Order Comment: Speci men Type: BLOOD SPECIMENOrdering Facility: [facility] Address: [address] [place] [address] Performed By: #### 1 4196-0, ####[facility] LABCLIA [id number] [place] [address] MCHC (RBC) [Mass/Vol] 34.0 g/dL Normal 30.5-36.0 [facility] Comment on above: Order Comment: Speci men Type: BLOOD SPECIMENOrdering Facility: [facility] Address: [address] [place] [address] Performed By: #### 1 4196-0, 58567-7 ####[facility] LABCLIA [id number] [place] [address] MCV (RBC) [Entitic vol] 86.9 fL Normal 80.0-100.0 [facility] Comment on above: Order Comment: Speci men Type: BLOOD SPECIMENOrdering Facility: [facility] Address: [address] [place] [address] Performed By: #### 1 4196-0, 44828-5 ####[facility] [id number] [place] [address] Monocytes (Bld) [#/Vol] 0.37 10*3/uL Normal <0.87 [facility] Comment on above: Order Comment: Speci men Type: BLOOD SPECIMENOrdering Facility: [facility] Address: [address] [place] [address] Performed By: #### 1 4196-0, 26027-2 ####[facility] LABIA [id number] [place] [address] Monocytes/100 WBC (Bld) 5.0 % Normal [facility] Comment on above: Order Comment: Speci men Type: BLOOD SPECIMENOrdering Facility: [facility] Address: [address] [place] [address] Performed By: #### 1 4196-0, 92328-5 ####[facility] LABIA [id number] [place] [address] Neutrophils (Bld) [#/Vol] 5.25 10*3/uL Normal 1.45-7.50 [facility] Comment on above: Order Comment: Speci men Type: BLOOD SPECIMENOrdering Facility: [facility] Address: [address] [place] [address] Performed By: #### 1 4196-0, 99769-6 ####[facility] LABCLIA [id number] [place] [address] Neutrophils/100 WBC (Bld) 71.7 % Normal [facility] Comment on above: Order Comment: Speci men Type: BLOOD SPECIMENOrdering Facility: [facility] Address: [address] [place] [address] Performed By: #### 1 4196-0, 09762-9 ####[facility] LABCLIA [id number] [place] [address] Nucleated RBC (Bld) [#/Vol] 10*3/uL Normal <0.01 [facility] Comment on above: Order Comment: Speci men Type: BLOOD SPECIMENOrdering Facility: [facility] Address: [address] [place] [address] Performed By: #### 1 4196-0, 11658-8 ####[facility] LABIA [id number] [place] [address] Nucleated RBC/100 WBC (Bld) [Ratio] 0.0 /100 WBC Normal [facility] Comment on above: Order Comment: Speci men Type: BLOOD SPECIMENOrdering Facility: [facility] Address: [address] [place] [address] Performed By: #### 1 4196-0, 80239-0 ####[facility] LABCLIA [id number] [place] [address] Platelet mean volume (Bld) [Entitic vol] 9.1 fL Normal 9.0-12.7 [facility] Comment on above: Order Comment: Speci men Type: BLOOD SPECIMENOrdering Facility: [facility] Address: [address] [place] [address] Performed By: #### 1 4196-0, 49502-9 ####[facility] LABCLIA [id number] [place] [address] Platelets (Bld) [#/Vol] 179 10*3/uL Normal 150-400 [facility] Comment on above: Order Comment: Speci men Type: BLOOD SPECIMENOrdering Facility: [facility] Address: [address] [place] [address] Performed By: #### 1 4196-0, 30231-8 ####[facility] LABIA [id number] [place] [address] RBC (Bld) [#/Vol] 3.75 10*6/uL Low 3.90-5.20 [facility] Comment on above: Order Comment: Speci men Type: BLOOD SPECIMENOrdering Facility: [facility] Address: [address] [place] [address] Performed By: #### 1 4196-0, 12395-9 ####[facility] [id number] [place] [address] WBC (Bld) [#/Vol] 7.33 10*3/uL Normal 3.70-11.00 [facility] Comment on above: Order Comment: Speci men Type: BLOOD SPECIMENOrdering Facility: [facility] Address: [address] [place] [address] Performed By: #### 1 4196-0, 41553-8 ####[facility] [id number] [place] [address] CNOVSPon 07-15-2024 OVS Visit (SP) Office (H EMASA) ANH TEJEDA ([id number]) 1950 F Date Time Provider Department 07/15/24 2:30 PM DAKSHA BRIDGES During your visit today, we recorded the following information about you: Temperature Pulse Respiration Blood pressure 97.4 degrees 81/minute 18/minute 108/68 Weight 94.5 kg Daksha Bridges PA-C 07/15/2024 2:48 PM Signed Hematology Progress Note PATIENT NAME: Anh Tejeda [facility] NO.: [id number] ATTENDING PHYSICIAN: Henry Walker MD DATE OF SERVICE: July 15, 2024 This note was copied from prior heme/onc encounter from 04/15/24. The patient's medications, allergies, past medical/surgical hx, family hx, ROS, and physical exam have all been reviewed and updated as appropriate. The interval history and assessment/plan content have been modified and are specific to today's (July 15, 2024) purpose for the visit. CHIEF COMPLAINT: Follow up Diagnosis: NAINA Treatment: Venofer x 3 doses 10/2022, again in January 2024 Interval History: Anh returns for 3 months follow up. She doesn't feel well. She was put on farxiga last weekend and she hasn't felt well since. She is fatigued and groggy. She plans to call her PCP to discuss this. Saw kidney doctor and he did ultrasound which she states showed cysts, but nothing else. Overall she is otherwise doing well. Current Outpatient Medications Medication Sig FARXIGA 10 mg tablet TAKE 1 TABLET BY MOUTH EVERYDAY FOR DIABETES resmetirom (REZDIFFRA) 80 mg tablet once daily. allopurinol (ZYLOPRIM) 300 mg tablet 300 mg. JANUVIA 50 mg tablet Take 1 tablet by mouth every afternoon. albuterol HFA (PROVENTIL HFA, VENTOLIN HFA) 90 mcg/actuation inhaler INHALE 2 PUFFS BY MOUTH EVERY 4 HOURS NEEDED FOR COUGH magnesium oxide 400 mg magnesium tab Take [...] Carb 250-300 mg tab Take by mouth. MEDIHONEY, HONEY, 100 % pste APPLY A THIN LAYER TWICE DAILY diclofenac, EC, (VOLTAREN) 75 mg EC tablet Take 75 mg by mouth once daily. furosemide (LASIX) 20 mg tablet Take 20 mg by mouth once daily. metformin HCl (METFORMIN ORAL) Take 1,000 mg by mouth once daily. No current facility-administered medications for this visit. ALLERGIES Allergen Reactions Acetaminophen-Codei* Other: See Comments pt states she is unwilling to try even plain tylenol after this experience even though she states she took tylenol prior to this and had no problems Tylenol #3 [Codeine] Other: See Comments Upset stomach PAST MEDICAL HISTORY No date: Anemia No date: Benign fundic gland polyps of stomach No date: Carpal tunnel syndrome No date: Chronic back pain No date: Diabetes mellitus (HCC) No date: Diverticulosis No date: GERD (gastroesophageal reflux disease) No date: Hemorrhoids No date: Hyperlipidemia No date: Polyneuropathy No date: Rectal polyp No date: Restless leg syndrome PAST SURGICAL HISTORY No date: COLONOSCOPY No date: EGD W/[facility] SPEC VARICIES INJ No date: REVISE MEDIAN N/CARPAL TUNNEL SURG; Right Comment: w/Trigger Finger FAMILY HISTORY Problem Relation Age of Onset other (Congenital heart disease) Mother Lung Cancer Father Social History Tobacco Use Smoking status: Never Passive exposure: Past Smokeless tobacco: Never Vaping Use Vaping status: Never Used Substance Use Topics Alcohol use: Never Drug use: Not Currently REVIEW OF SYSTEMS GENERAL: No weight loss, malaise or fevers. No night sweats. +fatigue worse since starting farxiga HEENT: Negative for headaches, No changes in [...] for prolonged bleeding, bruising easily, and swollen node (more content not included)... Normal [facility] Comprehensive metabolic 2000 panelon 07-15-2024 Albumin [Mass/Vol] 4.2 g/dL Normal 3.9-4.9 [facility] Comment on above: Order Comment: Speci men Type: BLOOD SPECIMEN [facility] Facility[facility] Address: [address] [place] [address] Performed By: #### 5 7021-8, 74361-3 #### [facility] CLIA [id number] [address] [place] [address] ALP [Catalytic activity/Vol] 166 U/L High 34-123 [facility] Comment on above: Order Comment: Speci men Type: BLOOD SPECIMEN [facility] Facility: [facility] Address: [address] [place] [address] Performed By: #### 5 7021-8, 73282-6 #### [facility] CLIA [id number] [address] [place] [address] ALT [Catalytic activity/Vol] 19 U/L Normal 7-38 [facility] Comment on above: Order Comment: Speci men Type: BLOOD SPECIMEN [facility] Facility: [facility] Address: [address] [place] [address] Performed By: #### 5 7021-8, 67184-9 #### [facility] CLIA [id number] [address] [place] [address] Anion gap [Moles/Vol] 12 mmol/L Normal 8-15 [facility] Comment on above: Order Comment: Speci men Type: BLOOD SPECIMEN [facility] Facility: [facility] Address: [address] [place] [address] Performed By: #### 5 7021-8, 65181-1 #### [facility] CLIA [id number] [address] [place] [address] AST [Catalytic activity/Vol] 22 U/L Normal 13-35 [facility] Comment on above: Order Comment: Speci men Type: BLOOD SPECIMEN [facility] Facility: [facility] Address: [address] [place], [place] [address] Performed By: #### 5 7021-8, 75961-3 #### [facility] CLIA [id number] [address] [place] [address] Bilirubin [Mass/Vol] 0.5 mg/dL Normal 0.2-1.3 [facility] Comment on above: Order Comment: Speci men Type: BLOOD SPECIMEN [facility] Facility: [facility] Address: [address] [place] [address] Performed By: #### 5 7021-8, 93642-5 #### [facility] CLIA [id number] [address] [place] [address] Calcium [Mass/Vol] 9.4 mg/dL Normal 8.5-10.2 [facility] Comment on above: Order Comment: Speci men Type: BLOOD SPECIMEN [facility] Facility: [facility] Address: [address] [place] [address] Performed By: #### 5 7021-8, 09831-5 #### [facility] CLIA [id number] [address] [place] [address] Chloride [Moles/Vol] 100 mmol/L Normal 98-107 [facility] Comment on above: Order Comment: Speci men Type: BLOOD SPECIMEN [facility]ing Facility: [facility] Address: [address] [place] [address] Performed By: #### 5 7021-8, 68693-2 #### [facility] CLIA [id number] [address] [place] [address] CO2 [Moles/Vol] 26 mmol/L Normal 22-30 [facility] Comment on above: Order Comment: Speci men Type: BLOOD SPECIMEN Ordering Facility: [facility] Address: [address] [place] [address] Performed By: #### 5 7021-8, 00558-5 #### [facility] CLIA [id number] [address] [place] [address] Creatinine [Mass/Vol] 1.75 mg/dL High 0.58-0.96 [facility] Comment on above: Order Comment: Speci men Type: BLOOD SPECIMEN [facility]ing Facility: [facility] Address: [address] [place] [id number] Performed By: #### 5 7021-8, 30598-9 #### [facility] CLIA [id number] [address] [place] [address] Creatinine and Glomerular filtration rate.predicted panel (S/P/Bld) 30 mL/min/1.73m??? Low >=60 [facility] Comment on above: Order Comment: Speci men Type: BLOOD SPECIMEN Ordering Facility: [facility] Address: [address] [place] [address] Result Comment: Maru mated Glomerular Filtration Rate [...] reflect actual GFR. Performed By: #### 5 7021-8, 10375-8 #### [facility] CLIA [id number] [address] [place] [address] Glucose [Mass/Vol] 277 mg/dL High 74-99 [facility] Comment on above: Order Comment: Speci men Type: BLOOD SPECIMEN Ordering Facility: [facility] Address: [address] [place] [address] Result Comment: The [place] Diabetes Association (ADA) provides guidance for cutoff [...] Standards of Medical Care in Diabetes 2016, [place] Diabetes Association. Diabetes Care. 2016.39(Suppl 1). Performed By: #### 5 7021-8, 10563-1 #### [facility] CLIA [id number] [address] [place] [address] Potassium [Moles/Vol] 4.9 mmol/L Normal 3.7-5.1 [facility] Comment on above: Order Comment: Patricia tarango Type: BLOOD SPECIMEN [facility]ing Facility: [facility] Address: [address] [place] [address] Performed By: #### 5 7021-8, 26537-5 #### [facility] CLIA [id number] [address] [place] [address] Protein [Mass/Vol] 6.5 g/dL Normal 6.3-8.0 [facility] Comment on above: Order Comment: Patricia tarango Type: BLOOD SPECIMEN [facility]ing Facility: [facility] Address: [address] [place] [address] Performed By: #### 5 7021-8, 40643-1 #### [facility] CLIA [id number] [address] [place] [address] Sodium [Moles/Vol] 138 mmol/L Normal 136-144 [facility] Comment on above: Order Comment: Patricia tarango Type: BLOOD SPECIMEN [facility]ing Facility: [facility] Address: [address] [place] [address] Performed By: #### 5 7021-8, 44039-2 #### [facility] CLIA [id number] [address] [place] [address] Urea nitrogen [Mass/Vol] 51 mg/dL High 7-21 [facility] Comment on above: Order Comment: Speci men Type: BLOOD SPECIMEN [facility]ing Facility: [facility] Address: [address] [place] [address] Performed By: #### 5 7021-8, 33451-9 #### [facility] CLIA [id number] [address] [place] [address] Ferritin SerPl-mCncon 2023 Ferritin [Mass/Vol] 737.0 ng/mL High 14.7-205.1 [facility] Comment on above: Order Comment: Speci men Type: BLOOD SPECIMENOrdering Facility: [facility] Address: [address] [place] [address] Performed By: #### 5 0190-8, 2276-4 ####[facility] LABCLIA [id number] [place] [address] [place] [employer] binding capaci ty panelon 07-15-2024 Iron [Mass/Vol] 67 ug/dL Normal 41-186 [facility] Comment on above: Order Comment: Speci men Type: BLOOD SPECIMENOrdering Facility: [facility] Address: [address] [place] [address] Performed By: #### 5 0190-8, 2275-4 ####[facility] LABCLIA [id number] [place] [address] [place] Iron binding capacity [Mass/Vol] 365 ug/dL Normal 232-386 [facility] Comment on above: Order Comment: Speci men Type: BLOOD SPECIMENOrdering Facility: [facility] Address: [address] [place] [address] Performed By: #### 5 0190-8, 2275-4 ####[facility] LABCLIA [id number] [place] [address] [place] Iron/TIBC [Molar ratio] 18.4 % Normal 15.0-57.0 [facility] Comment on above: Order Comment: Speci men Type: BLOOD SPECIMENOrdering Facility: [facility] Address: [address] [place] [address] Performed By: #### 5 0190-8, 2276-4 ####[facility] LABCLIA [id number] SARAH DOMINGO [id number] [place] [address] [place] Retics #on 07-15-2024 Reticulocytes (Bld) [#/Vol] 0.75654 10*3/uL High 0.018-0.100 [facility] Comment on above: Order Comment: Speci men Type: BLOOD SPECIMENOrdering Facility: [facility] Address: [address] [place] [address] Performed By: #### 1 4196-0, 50049-8 ####[facility] LABCLIA [id number] [place] [address] Reticulocytes (Bld) [#/Vol]o n 07-15-2024 Reticulocytes/100 RBC (Bld) 3.4 % High 0.4-2.0 [facility] Comment on above: Order Comment: Speci men Type: BLOOD SPECIMENOrdering Facility: [facility] Address: [address] [place] [address] Performed By: #### 1 4196-0, 86010-3 ####[facility] LABCLIA [id number] [place] [address] Alanine aminotransferase [En zymatic activity/volume] in Serum or PlasmaOrdered By: Vinay Bunting on 05-24-2024 ALT [Catalytic activity/Vol] 18 U/L 7-52 [facility] Albumin [Mass/volume] in Ser um or Plasma by Bromocresol green (BCG) dye binding methoOrdered By: Vinay Bunting on 05-24-2024 Albumin BCG dye [Mass/Vol] 4.0 g/dL 3.5-5.7 [facility] Alkaline phosphatase [Enzyma tic activity/volume] in Serum or PlasmaOrdered By: Vinay Bunting on 05-24-2024 ALP [Catalytic activity/Vol] 104 U/L 34-104 [facility] Aspartate aminotransferase [ Enzymatic activity/volume] in Serum or PlasmaOrdered By: Vinay Bunting on 05-24-2024 AST [Catalytic activity/Vol] 21 U/L 13-39 [facility] Basophils Auto (Bld) [#/Vol] Ordered By: Vinay Bunting on 05-24-2024 Basophils (Bld) [#/Vol] 0.0 10*3/uL 0.0-0.2 [facility] Basophils/100 WBC Auto (Bld) Ordered By: Vinay Bunting on 05-24-2024 Basophils/100 WBC (Bld) 0.2 % . [facility] Bilirubin.total [Mass/volume ] in Serum or PlasmaOrdered By: Vinay Bunting on 05-24-2024 Bilirubin [Mass/Vol] 0.5 mg/dL 0.3-1.0 [facility] Calcium [Mass/volume] in Ser um or PlasmaOrdered By: Vinay Bunting on 05-24-2024 Calcium [Mass/Vol] 8.6 mg/dL 8.6-10.3 [facility] Carbon dioxide, total [Moles /volume] in Serum or PlasmaOrdered By: Vinay Bunting on 05-24-2024 CO2 [Moles/Vol] 29.0 mmol/L 21.0-31.0 [facility] Chloride [Moles/volume] in S hilda or PlasmaOrdered By: Vinay Bunting on 05-24-2024 Chloride [Moles/Vol] 101 mmol/L 98-107 [facility] Cholesterol [Mass/volume] in Serum or PlasmaOrdered By: Vinay Bunting on 05-24-2024 Cholesterol [Mass/Vol] 107 mg/dL Low 140-200 [facility] Comment on above: Chol less than 200 m g/dl low riskChol 201-239 mg/dl borderline riskChol 240 mg/dl and greater high risk Cholesterol in LDL Calc [Mas s/Vol]Ordered By: Vinay Bunting on 05-24-2024 Cholesterol in LDL [Mass/Vol] 46 mg/dL 0-100 [facility] Comment on above: LDL ATP III CLASSIFI CATIONLDL less than 100 mg/dL OptimalLDL 100-129 mg/dL Near or above optimalLDL 130-159 mg/dL Borderline highLDL 160-189 mg/dL HighLDL greater than 189 mg/dL Very high Cholesterol in VLDL Calc [Ma ss/Vol]Ordered By: Vinay Matta on 05-24-2024 Cholesterol in VLDL [Mass/Vol] 21 mg/dL [facility] Creatinine [Mass/volume] in Serum or PlasmaOrdered By: Vinay Matta on 05-24-2024 Creatinine [Mass/Vol] 1.26 mg/dL High 0.60-1.20 [facility] Eosinophils Auto (Bld) [#/Vo l]Ordered By: Vinay Bunhomer on 05-24-2024 Eosinophils (Bld) [#/Vol] 0.2 10*3/uL 0.0-0.45 [facility] Eosinophils/100 WBC Auto (Bl d)Ordered By: Vinay Matta on 05-24-2024 Eosinophils/100 WBC (Bld) 2.6 % . [facility] Erythrocyte distribution wid th Auto (RBC) [Ratio]Ordered By: Vinay Matta on 05-24-2024 Erythrocyte distribution width (RBC) [Ratio] 16.8 % High 11.9-15.3 [facility] Globulin Calc (S) [Mass/Vol] Ordered By: Vinay Matta on 05-24-2024 Globulin (S) [Mass/Vol] 2.2 g/dL [facility] Glucose [Mass/volume] in Ser um or PlasmaOrdered By: Vinay Matta on 05-24-2024 Glucose [Mass/Vol] 133 mg/dL High 70-100 [facility] Comment on above: ADA recommended refe rence rangeRandom Glucose Reference Range is dependent on time and content of last meal. Glucose of more than 200 mg/dL in a nonstressed, ambulatory subject supports the diagnosis of Diabetes Mellitus. Glucose mean value [Mass/vol ume] in Blood Estimated from glycated hemoglobinOrdered By: Vinay Matta on 05-24-2024 Average glucose Estimated from glycated hemoglobin (Bld) [Mass/Vol] 151 mg/dL [facility] Hematocrit Auto (Bld) [Volum e fraction]Ordered By: Vinay Matta on 05-24-2024 Hematocrit (Bld) [Volume fraction] 32.1 % Low 34.0-46.4 [facility] Hemoglobin A1c percentageOrd ered By: Vinay Bunting on 05-24-2024 HbA1c (Bld) [Mass fraction] 6.9 % High 4.3-5.6 [facility] Comment on above: Increased risk for d iabetes: 5.7 - 6.4diabetes: >6.4glycemic control for adults with diabetes: <7.0 Hemoglobin [Mass/volume] in BloodOrdered By: Vinay Bunting on 05-24-2024 Hemoglobin (Bld) [Mass/Vol] 10.9 g/dL Low 11.8-15.4 [facility] Leukocytes [#/volume] correc remberto for nucleated erythrocytes in Blood by Automated counOrdered By: Vinay Bunting on 05-24-2024 WBC corrected for nucl RBC Auto (Bld) [#/Vol] 5.9 10*3/uL 3.8-11.6 [facility] Lymphocytes Auto (Bld) [#/Vo l]Ordered By: Vinay Bunting on 05-24-2024 Lymphocytes (Bld) [#/Vol] 1.1 10*3/uL 1.00-4.8 [facility] Lymphocytes/100 WBC Auto (Bl d)Ordered By: Vinay Bunting on 05-24-2024 Lymphocytes/100 WBC (Bld) 17.9 % . [facility] MCH Auto (RBC) [Entitic mass ]Ordered By: Vinay Bunting on 05-24-2024 MCH (RBC) [Entitic mass] 29.9 pg 24.7-34.3 [facility] MCHC Auto (RBC) [Mass/Vol]Or dered By: Vinay Bunting on 05-24-2024 MCHC (RBC) [Mass/Vol] 34.0 g/dL 32.0-35.0 [facility] MCV Auto (RBC) [Entitic vol] Ordered By: Vinay Bunting on 05-24-2024 MCV (RBC) [Entitic vol] 88.1 fL 80-100 [facility] Magnesium [Mass/volume] in S hilda or PlasmaOrdered By: Vinay Bunting on 05-24-2024 Magnesium [Mass/Vol] 1.0 mg/dL Low 1.9-2.7 [facility] Monocytes Auto (Bld) [#/Vol] Ordered By: Vinay Bunting on 05-24-2024 Monocytes (Bld) [#/Vol] 0.3 10*3/uL 0.0-0.8 [facility] Monocytes/100 WBC Auto (Bld) Ordered By: Vinay Bunting on 05-24-2024 Monocytes/100 WBC (Bld) 5.4 % . [facility] Neutrophils Auto (Bld) [#/Vo l]Ordered By: Vinay Bunting on 05-24-2024 Neutrophils (Bld) [#/Vol] 4.4 10*3/uL 1.8-7.7 [facility] Neutrophils/100 WBC Auto (Bl d)Ordered By: Vinay Bunting on 05-24-2024 Neutrophils/100 WBC (Bld) 73.9 % . [facility] No Panel InformationOrdered By: Vinay Bunting on 05-24-2024 Estimated GFR (CKD-EPI) 44.522 mL/Min [facility] Creatinine Clearance (Chem N/A [facility] Nucleated erythrocytes [Pres ence] in Blood by Automated countOrdered By: Vinay Bunting on 05-24-2024 Nucleated RBC Auto Ql (Bld) 0.1 /100{WBC} 0-0.5 [facility] Platelet mean volume Auto (B ld) [Entitic vol]Ordered By: Vinay Bunting on 05-24-2024 Platelet mean volume (Bld) [Entitic vol] 7.3 fL 6.3-10.7 [facility] Platelets Auto (Bld) [#/Vol] Ordered By: Vinay Bunting on 05-24-2024 Platelets (Bld) [#/Vol] 156 10*3/uL 150-450 [facility] Potassium [Moles/volume] in Serum or PlasmaOrdered By: Vinay Bunting on 05-24-2024 Potassium [Moles/Vol] 4.7 mmol/L 3.5-5.1 [facility] Protein [Mass/volume] in Ser um or PlasmaOrdered By: Vinay Bunting on 05-24-2024 Protein [Mass/Vol] 6.2 g/dL Low 6.4-8.9 [facility] RBC Auto (Bld) [#/Vol]Ordere d By: Vinay Matta on 05-24-2024 RBC (Bld) [#/Vol] 3.65 10*6/uL 3.60-5.00 [facility] Serum or plasma albumin/glob ulin mass ratioOrdered By: Vinay Bunhomer on 05-24-2024 Albumin/Globulin [Mass ratio] 1.8 {ratio} [facility] Serum or plasma anion gap de terminationOrdered By: Vinay Matta on 05-24-2024 Anion gap [Moles/Vol] 14.7 mmol/L 6.0-15.0 [facility] Serum or plasma high density lipoprotein (HDL) cholesterol measurementOrdered By: Vinay Matta on 05-24-2024 Cholesterol in HDL [Mass/Vol] 40 mg/dL 23-92 [facility] Comment on above: HDL CHOL ATP-III CLA SSIFICATION Cardiovascular RiskHDL > or equal to 60 mg/dL LOWHDL < 40 mg/dL HIGH Serum or plasma total choles terol/high density lipoprotein (HDL) cholesterol mass ratOrdered By: Vinay Matta on 05-24-2024 Cholesterol.total/Cho lesterol in HDL [Mass ratio] 2.7 {ratio} <5.0 [facility] Sodium [Moles/volume] in Ser um or PlasmaOrdered By: Vinay Matta on 05-24-2024 Sodium [Moles/Vol] 140 mmol/L 136-145 [facility] Triglyceride [Mass/volume] i n Serum or PlasmaOrdered By: Vinay Bunhomer on 05-24-2024 Triglyceride [Mass/Vol] 106 mg/dL 0-149 [facility] Comment on above: TRIG ATP III CLASSIF ICATIONTRIG less than 150 mg/dL NormalTRIG 150-199 mg/dL Borderline highTRIG 200-500 mg/dL High TRIG greater than 500 mg/dL Very highStandard traceable to the Center for Disease Conrtrol and Prevention (CDC) test method. Urate [Mass/volume] in Serum or PlasmaOrdered By: Vinay Matta on 05-24-2024 Urate [Mass/Vol] 3.9 mg/dL 2.3-6.6 [facility] Urea nitrogen [Mass/volume] in Serum or PlasmaOrdered By: Vinay Bunting on 05-24-2024 Urea nitrogen [Mass/Vol] 26 mg/dL High 7-25 [facility] WBC Auto (Bld) [#/Vol]Ordere d By: Vinay Bunting on 05-24-2024 WBC (Bld) [#/Vol] 5.9 10*3/uL 3.8-11.6 [facility] Consultation Noteon 04-29-20 Consultation Note [id number]#1.00TIFF Normal [facility] Retail - Clinical Noteon Retail - Clinical Note [id number]#1.00TIFF Normal [facility] - Clinical Note [id number]#1.00TIFF Normal [facility] CHEMISTRYOrdered By: SYSTEM SYSTEM on 01-28-2024 Albumin [Mass/Vol] 4.2 g/dL Normal 3.3 - 5.0 gm/dL [facility] Albumin/Globulin [Mass ratio] 1.8 {ratio} Normal 1.1 - 2.2 [facility] ALP [Catalytic activity/Vol] 112 [iU]/d High 21 - 98 Int._Unit/L [facility] ALT No additional P-5'-P [Catalytic activity/Vol] 24 [iU]/d Normal 6 - 46 Int._Unit/L [facility] Anion gap [Moles/Vol] 18 mmol/L High 6 - 16 mEq/L [facility] AST [Catalytic activity/Vol] 31 [iU]/d Normal 5 - 43 Int._Unit/L [facility] Bilirubin [Mass/Vol] 0.5 mg/dL Normal [...] Chem eGFR 31 mL/min/1.73 m2 Low >=59mL/min / 1.73 m2 [facility] Ferritin [Mass/Vol] 41 ng/mL [...] mg/mg High 10 - 20 [facility] COAGULATIONOrdered By: Monica Gomez on 01-28-2024 INR Coag (PPP) [Relative time] 1.10 {INR} Invalid Interpretation Code [facility] Auto Coag Comment on above: Interpretive Data: I NR results are specifically intended to assess patients stabilized on long-term Anticoagulation therapy suggested INR s Less Intensive Anticoagulation 2.0 3.0 Conventional Range 3.0 4.5 PT Coag (PPP) [Time] 12.3 s Normal 9.4 - 1 2.5 second(s) [facility] Auto Coag Comment on above: Interpretive Data: [...] the same coagulation reagent and instrumentation as [facility]. Currently there are no coagulation studies available worldwide for children to 14 days, and no normal ranges. HEMATOLOGYOrdered By: SYSTEM SYSTEM on 01-28-2024 Erythrocyte [...] Normal 4.0 - 11.0 E9/L [facility] Heme Alanine aminotransferase [En zymatic activity/volume] in Serum or PlasmaOrdered By: Vinay Matta on 09-05-2023 ALT [Catalytic activity/Vol] 24 U/L 7-52 [facility] Albumin [Mass/volume] in Ser um or Plasma by Bromocresol green (BCG) dye binding methoOrdered By: Vinay Bunting on 09-05-2023 Albumin BCG dye [Mass/Vol] 4.2 g/dL 3.5-5.7 [facility] Alkaline phosphatase [Enzyma tic activity/volume] in Serum or PlasmaOrdered By: Vinay Bunting on 09-05-2023 ALP [Catalytic activity/Vol] 105 U/L 34-104 [facility] Aspartate aminotransferase [ Enzymatic activity/volume] in Serum or PlasmaOrdered By: Vinay Bunting on 09-05-2023 AST [Catalytic activity/Vol] 24 U/L 13-39 [facility] Basophils Auto (Bld) [#/Vol] Ordered By: Vinay Bunting on 09-05-2023 Basophils (Bld) [#/Vol] 0.0 10*3/uL 0.0-0.2 [facility] Basophils/100 WBC Auto (Bld) Ordered By: Vinay Bunting on 09-05-2023 Basophils/100 WBC (Bld) 0.5 % . [facility] Bilirubin.total [Mass/volume ] in Serum or PlasmaOrdered By: Vinay Bunting on 09-05-2023 Bilirubin [Mass/Vol] 0.5 mg/dL 0.3-1.0 [facility] Calcium [Mass/volume] in Ser um or PlasmaOrdered By: Vinay Bunting on 09-05-2023 Calcium [Mass/Vol] 9.1 mg/dL 8.6-10.3 [facility] Carbon dioxide, total [Moles /volume] in Serum or PlasmaOrdered By: Vinay Bunting on 09-05-2023 CO2 [Moles/Vol] 29.2 mmol/L 21.0-31.0 [facility] Chloride [Moles/volume] in S hilda or PlasmaOrdered By: Vinay Bunting on 09-05-2023 Chloride [Moles/Vol] 103 mmol/L 98-107 [facility] Cholesterol [Mass/volume] in Serum or PlasmaOrdered By: Vinay Bunting on 09-05-2023 Cholesterol [Mass/Vol] 116 mg/dL 140-200 [facility] Comment on above: Chol less than 200 m g/dl low riskChol 201-239 mg/dl borderline riskChol 240 mg/dl and greater high risk Cholesterol in LDL Calc [Mas s/Vol]Ordered By: Vinay Bunting on 09-05-2023 Cholesterol in LDL [Mass/Vol] 55 mg/dL 0-100 [facility] Comment on above: LDL ATP III CLASSIFI CATIONLDL less than 100 mg/dL OptimalLDL 100-129 mg/dL Near or above optimalLDL 130-159 mg/dL Borderline highLDL 160-189 mg/dL HighLDL greater than 189 mg/dL Very high Cholesterol in VLDL Calc [Ma ss/Vol]Ordered By: Vinay Bunting on 09-05-2023 Cholesterol in VLDL [Mass/Vol] 18 mg/dL [facility] Creatinine [Mass/volume] in Serum or PlasmaOrdered By: Vinay Bunting on 09-05-2023 Creatinine [Mass/Vol] 1.67 mg/dL 0.60-1.20 [facility] Eosinophils Auto (Bld) [#/Vo l]Ordered By: Vinay Bunting on 09-05-2023 Eosinophils (Bld) [#/Vol] 0.1 10*3/uL 0.0-0.45 [facility] Eosinophils/100 WBC Auto (Bl d)Ordered By: Vinay Bunting on 09-05-2023 Eosinophils/100 WBC (Bld) 2.7 % . [facility] Erythrocyte distribution wid th Auto (RBC) [Ratio]Ordered By: Vinay Bunting on 09-05-2023 Erythrocyte distribution width (RBC) [Ratio] 17.2 % 11.9-15.3 [facility] Globulin Calc (S) [Mass/Vol] Ordered By: Vinay Bunting on 09-05-2023 Globulin (S) [Mass/Vol] 2.2 g/dL [facility] Glucose [Mass/volume] in Ser um or PlasmaOrdered By: Vinay Bunting on 09-05-2023 Glucose [Mass/Vol] 172 mg/dL 70-100 [facility] Comment on above: ADA recommended refe rence rangeRandom Glucose Reference Range is dependent on time and content of last meal. Glucose of more than 200 mg/dL in a nonstressed, ambulatory subject supports the diagnosis of Diabetes Mellitus. Glucose mean value [Mass/vol ume] in Blood Estimated from glycated hemoglobinOrdered By: Vinay Matta on 09-05-2023 Average glucose Estimated from glycated hemoglobin (Bld) [Mass/Vol] 192 mg/dL [facility] Hematocrit Auto (Bld) [Volum e fraction]Ordered By: Vinay Matta on 09-05-2023 Hematocrit (Bld) [Volume fraction] 31.6 % 34.0-46.4 [facility] Hemoglobin A1c percentageOrd ered By: Vinay Matta on 09-05-2023 HbA1c (Bld) [Mass fraction] 8.3 % 4.3-5.6 [facility] Comment on above: Increased risk for d iabetes: 5.7 - 6.4diabetes: >6.4glycemic control for adults with diabetes: <7.0 Hemoglobin [Mass/volume] in BloodOrdered By: Vinay Matta on 09-05-2023 Hemoglobin (Bld) [Mass/Vol] 11.0 g/dL 11.8-15.4 [facility] Leukocytes [#/volume] correc remberto for nucleated erythrocytes in Blood by Automated counOrdered By: Vinay Matta on 09-05-2023 WBC corrected for nucl RBC Auto (Bld) [#/Vol] 5.3 10*3/uL 3.8-11.6 [facility] Lymphocytes Auto (Bld) [#/Vo l]Ordered By: Vinay Matta on 09-05-2023 Lymphocytes (Bld) [#/Vol] 1.5 10*3/uL 1.00-4.8 [facility] Lymphocytes/100 WBC Auto (Bl d)Ordered By: Vinay Bunting on 09-05-2023 Lymphocytes/100 WBC (Bld) 28.2 % . [facility] MCH Auto (RBC) [Entitic mass ]Ordered By: Vinay Bunting on 09-05-2023 MCH (RBC) [Entitic mass] 29.1 pg 24.7-34.3 [facility] MCHC Auto (RBC) [Mass/Vol]Or dered By: Vinay Bunting on 09-05-2023 MCHC (RBC) [Mass/Vol] 34.9 g/dL 32.0-35.0 [facility] MCV Auto (RBC) [Entitic vol] Ordered By: Vinay Bunting on 09-05-2023 MCV (RBC) [Entitic vol] 83.3 fL 80-100 [facility] Monocytes Auto (Bld) [#/Vol] Ordered By: Vinay Bunting on 09-05-2023 Monocytes (Bld) [#/Vol] 0.3 10*3/uL 0.0-0.8 [facility] Monocytes/100 WBC Auto (Bld) Ordered By: Vinay Bunting on 09-05-2023 Monocytes/100 WBC (Bld) 5.0 % . [facility] Neutrophils Auto (Bld) [#/Vo l]Ordered By: Vinay Bunting on 09-05-2023 Neutrophils (Bld) [#/Vol] 3.4 10*3/uL 1.8-7.7 [facility] Neutrophils/100 WBC Auto (Bl d)Ordered By: Vinay Bunting on 09-05-2023 Neutrophils/100 WBC (Bld) 63.6 % . [facility] No Panel InformationOrdered By: Vinay Bunting on 09-05-2023 Estimated GFR (CKD-EPI) 31.949 mL/Min [facility] Creatinine Clearance (Chem N/A [facility] Nucleated erythrocytes [Pres ence] in Blood by Automated countOrdered By: Vinay Bunting on 09-05-2023 Nucleated RBC Auto Ql (Bld) 0.0 /100{WBC} 0-0.5 [facility] Platelet mean volume Auto (B ld) [Entitic vol]Ordered By: Vinay Bunting on 09-05-2023 Platelet mean volume (Bld) [Entitic vol] 7.3 fL 6.3-10.7 [facility] Platelets Auto (Bld) [#/Vol] Ordered By: Vinay Bunting on 09-05-2023 Platelets (Bld) [#/Vol] 150 10*3/uL 150-450 [facility] Potassium [Moles/volume] in Serum or PlasmaOrdered By: Vinay Bunting on 09-05-2023 Potassium [Moles/Vol] 4.0 mmol/L 3.5-5.1 [facility] Protein [Mass/volume] in Ser um or PlasmaOrdered By: Vinay Bunting on 09-05-2023 Protein [Mass/Vol] 6.4 g/dL 6.4-8.9 [facility] RBC Auto (Bld) [#/Vol]Ordere d By: Vinay Bunting on 09-05-2023 RBC (Bld) [#/Vol] 3.79 10*6/uL 3.60-5.00 [facility] Serum or plasma albumin/glob ulin mass ratioOrdered By: Vinay Bunting on 09-05-2023 Albumin/Globulin [Mass ratio] 1.9 {ratio} [facility] Serum or plasma anion gap de terminationOrdered By: Vinay Bunting on 09-05-2023 Anion gap [Moles/Vol] 13.8 mmol/L 6.0-15.0 [facility] Serum or plasma high density lipoprotein (HDL) cholesterol measurementOrdered By: Vinay Bunting on 09-05-2023 Cholesterol in HDL [Mass/Vol] 42 mg/dL 23-92 [facility] Comment on above: HDL CHOL ATP-III CLA SSIFICATION Cardiovascular RiskHDL > or equal to 60 mg/dL LOWHDL < 40 mg/dL HIGH Serum or plasma total choles terol/high density lipoprotein (HDL) cholesterol mass ratOrdered By: Vinay Bunting on 09-05-2023 Cholesterol.total/Cho lesterol in HDL [Mass ratio] 2.8 {ratio} <5.0 [facility] Sodium [Moles/volume] in Ser um or PlasmaOrdered By: Vinay Bunting on 09-05-2023 Sodium [Moles/Vol] 142 mmol/L 136-145 [facility] Triglyceride [Mass/volume] i n Serum or PlasmaOrdered By: Vinay Bunting on 09-05-2023 Triglyceride [Mass/Vol] 93 mg/dL 0-149 [facility] Comment on above: TRIG ATP III CLASSIF ICATIONTRIG less than 150 mg/dL NormalTRIG 150-199 mg/dL Borderline highTRIG 200-500 mg/dL High TRIG greater than 500 mg/dL Very highStandard traceable to the Center for Disease Conrtrol and Prevention (CDC) test method. Urate [Mass/volume] in Serum or PlasmaOrdered By: Vinay Bunting on 09-05-2023 Urate [Mass/Vol] 6.0 mg/dL 2.3-6.6 [facility] Urea nitrogen [Mass/volume] in Serum or PlasmaOrdered By: Vinay Bunting on 09-05-2023 Urea nitrogen [Mass/Vol] 38 mg/dL 06-09 [facility] WBC Auto (Bld) [#/Vol]Ordere d By: Vinay Bunting on 09-05-2023 WBC (Bld) [#/Vol] 5.3 10*3/uL 3.8-11.6 [facility] CBC AUTO DIFFon 03-27-2023 BASO # 0.0 103/ul Normal 0.0-0.1 [facility] Comment on above: Performed By: #### C BC #### [facility] [address] [place] [address] Dr. Anamika Varghese Basophils/100 WBC (Bld) 0.3 % Normal 0.2-2.0 [facility] Comment on above: Performed By: #### C BC #### [facility] [address] [place] [address] Dr. Anamika Varghese EO # 0.1 103/ul Normal 0.0-0.7 [facility] Comment on above: Performed By: #### C BC #### [facility] [address] [place] [address] Dr. Anamika Varghese Eosinophils/100 WBC (Bld) 1.7 % Normal 0.9-7.0 [facility] Comment on above: Performed By: #### C BC #### [facility] [address] [place] [address] Dr. Anamika Varghese Erythrocyte distribution width (RBC) [Ratio] 15.4 % Critically high 11.0-15.0 [facility] Comment on above: Performed By: #### C BC #### [facility] [address] [place] [address] Dr. Anamika Varghese Hematocrit (Bld) [Volume fraction] 32.2 % Critically low 36.0-48.0 [facility] Comment on above: Performed By: #### C BC #### [facility] [address] [place] [address] Dr. Anamika Varghese Hemoglobin (Bld) [Mass/Vol] 10.9 g/dL Critically low 12.0-16.0 [facility] Comment on above: Performed By: #### C BC #### [facility] [address] [place] [address] Dr. Anamika Varghese IG # 0.02 10e3/ul Normal 0.00-0.03 [facility] Comment on above: Performed By: #### C BC #### [facility] [address] [place] [address] Dr. Anamika Varghese IG % 0.3 % Normal 0.0-0.5 [facility] Comment on above: Performed By: #### C BC #### [facility] [address] [place] [address] Dr. Anamika Varghese LYMPH # 1.5 103/ul Normal 1.2-3.8 [facility] Comment on above: Performed By: #### C BC #### [facility] [address] [place] [address] Dr. Anamika Varghese Lymphocytes/100 WBC (Bld) 25.0 % Normal 20.5-60.0 [facility] Comment on above: Performed By: #### C BC #### [facility] [address] [place] [address] Dr. Anamika Varghese MANUAL DIFF REQ NO Normal [facility] Comment on above: Performed By: #### C BC #### [facility] [address] [place] [address] Dr. Anamika Varghese MCH (RBC) [Entitic mass] 29.0 pg Normal 26.7-34.0 [facility] Comment on above: Performed By: #### C BC #### [facility] [address] [place] [address] Dr. Anamika Varghese MCHC (RBC) [Mass/Vol] 33.9 g/dL Normal 29.9-35.2 [facility] Comment on above: Performed By: #### C BC #### [facility] [address] [place] [address] Dr. Anamika Varghese MCV (RBC) [Entitic vol] 85.6 fL Normal 81.0-99.0 [facility] Comment on above: Performed By: #### C BC #### [facility] [address] [place] [address] Dr. Anamika Varghese MONO # 0.3 103/ul Normal 0.3-0.8 [facility] Comment on above: Performed By: #### C BC #### [facility] [address] [place] [address] Dr. Anamika Varghese Monocytes/100 WBC (Bld) 4.5 % Normal 1.7-12.0 [facility] Comment on above: Performed By: #### C BC #### [facility] [address] [place] [address] Dr. Anamika Varghese NEUT # 4.1 103/ul Normal 1.4-6.5 [facility] Comment on above: Performed By: #### C BC #### [facility] [address] [place] [address] Dr. Anamika Varghese Neutrophils/100 WBC (Bld) 68.2 % Normal 43.0-75.0 [facility] Comment on above: Performed By: #### C BC #### [facility] [address] [place] [address] Dr. Anamika Varghese Platelet mean volume (Bld) [Entitic vol] 8.9 fL Critically low 9.5-13.5 [facility] Comment on above: Performed By: #### C BC #### [facility] [address] [place] [address] Dr. Anamika Varghese PLT 172 103/ul Normal 150-450 [facility] Comment on above: Performed By: #### C BC #### [facility] [address] [place] [address] Dr. Anamika Varghese RBC 3.76 106/ul Critically low 4.20-5.40 [facility] Comment on above: Performed By: #### C BC #### [facility] [address] [place] [address] Dr. Anamika Varghese WBC 6.0 103/ul Normal 4.0-11.0 [facility] Comment on above: Performed By: #### C BC #### [facility] [address] [place] [address] Dr. Anamika Varghese PROF 14(COMP METB)on 023 Albumin [Mass/Vol] 3.5 g/dL Normal 3.4-5.0 [facility] Comment on above: Performed By: #### F ETIBC, FERR, B12FOL #### [facility] [address] [place] [address] Dr. Anamika Varghese Albumin/Globulin [Mass ratio] 1.0 {ratio} Normal [facility] Comment on above: Performed By: #### F ETIBC, FERR, B12FOL #### [facility] [address] [place] [address] Dr. Anamika Varghese ALP [Catalytic activity/Vol] 109 U/L Normal 46-116 [facility] Comment on above: Performed By: #### F ETIBC, FERR, B12FOL #### [facility] [address] [place] [address] Dr. Anamika Varghese ALT [Catalytic activity/Vol] 34 U/L Normal 14-59 [facility] Comment on above: Performed By: #### F ETIBC, FERR, B12FOL #### [facility] [address] [place] [address] Dr. Anamika Varghese Anion gap [Moles/Vol] 13.8 mmol/L Normal [facility] Comment on above: Performed By: #### F ETIBC, FERR, B12FOL #### [facility] [address] [place] [address] Dr. Anamika Varghese AST [Catalytic activity/Vol] 20 U/L Normal 15-37 [facility] Comment on above: Performed By: #### F ETIBC, FERR, B12FOL #### [facility] [address] [place] [address] Dr. Anamika Varghese Bilirubin [Mass/Vol] 0.4 mg/dL Normal 0.2-1.0 [facility] Comment on above: Performed By: #### F ETIBC, FERR, B12FOL #### [facility] [address] [place] [address] Dr. Anamika Varghese Calcium [Mass/Vol] 8.7 mg/dL Normal 8.5-10.1 [facility] Comment on above: Performed By: #### F ETIBC, FERR, B12FOL #### [facility] [address] [place] [address] Dr. Anamika Varghese Chloride [Moles/Vol] 107 mmol/L Normal 98-107 [facility] Comment on above: Performed By: #### F ETIBC, FERR, B12FOL #### [facility] [address] [place] [address] Dr. Anamika Varghese CO2 [Moles/Vol] 28.2 mmol/L Normal 21.0-32.0 [facility] Comment on above: Performed By: #### F ETIBC, FERR, B12FOL #### [facility] [address] [place] [address] Dr. Anamika Varghese Creatinine [Mass/Vol] 1.27 mg/dL Critically high 0.55-1.02 [facility] Comment on above: Performed By: #### F ETIBC, FERR, B12FOL #### [facility] [address] [place] [address] Dr. Anamika Varghese EGFR-AF ANGUILLAN 50 mL/min/1.73m2 Critically low >=60 [facility] Comment on above: Performed By: #### F ETIBC, FERR, B12FOL #### [facility] [address] [place] [address] Dr. Anamika Varghese EGFR-NON AF ANGUILLAN 41 mL/min/1.73m2 Critically low >=60 [facility] Comment on above: Performed By: #### F ETIBC, FERR, B12FOL #### [facility] [address] [place] [address] Dr. Anamika Varghese Globulin (S) [Mass/Vol] 3.6 g/dL Normal [facility] Comment on above: Performed By: #### F ETIBC, FERR, B12FOL #### [facility] [address] [address] [address] Anamika Varghese Glucose [Mass/Vol] 116 mg/dL Critically high 74-106 [facility] Comment on above: Performed By: #### F ETIBC, FERR, B12FOL #### [facility] [address] [address] [address] Anamika Varghese Potassium [Moles/Vol] 4.0 mmol/L Normal 3.5-5.1 [facility] Comment on above: Performed By: #### F ETIBC, FERR, B12FOL #### [facility] [address] [place] [address] Dr. Anamika Varghese Protein [Mass/Vol] 7.1 g/dL Normal 6.4-8.2 [facility] Comment on above: Performed By: #### F ETIBC, FERR, B12FOL #### [facility] [address] [place] [address] Dr. Anamika Varghese Sodium [Moles/Vol] 145 mmol/L Normal 136-145 [facility] Comment on above: Performed By: #### F ETIBC, FERR, B12FOL #### [facility] [address] [place] [address] Dr. Anamika Varghese Urea nitrogen [Mass/Vol] 24.0 mg/dL Critically high 7.0-18.0 [facility] Comment on above: Performed By: #### F ETIBC, FERR, B12FOL #### [facility] [address] [place] [address] Dr. Anamika Varghese Urea nitrogen/Creatinine [Mass ratio] 18.9 mg/mg Normal [facility] Comment on above: Performed By: #### F ETIBC, FERR, B12FOL #### [facility] [address] [place] [address] Dr. Anamika Varghese Basophils Auto (Bld) [#/Vol] Ordered By: Kimberly Arteaga on 03-13-2023 Basophils (Bld) [#/Vol] 0.0 10*3/uL 0.0-0.2 [facility] Basophils/100 WBC Auto (Bld) Ordered By: Kimberly Arteaga on 03-13-2023 Basophils/100 WBC (Bld) 0.4 % . [facility] Calcium [Mass/volume] in Ser um or PlasmaOrdered By: Kimberly Arteaga on 03-13-2023 Calcium [Mass/Vol] 8.5 mg/dL 8.6-10.3 [facility] Carbon dioxide, total [Moles /volume] in Serum or PlasmaOrdered By: Kimberly Arteaga on 03-13-2023 CO2 [Moles/Vol] 29.6 mmol/L 21.0-31.0 [facility] Chloride [Moles/volume] in S hilda or PlasmaOrdered By: Kimberly Arteaga on 03-13-2023 Chloride [Moles/Vol] 103 mmol/L 98-107 [facility] Creatinine [Mass/volume] in Serum or PlasmaOrdered By: Kimberly Arteaga on 03-13-2023 Creatinine [Mass/Vol] 1.35 mg/dL 0.60-1.20 [facility] Eosinophils Auto (Bld) [#/Vo l]Ordered By: Kimberly Arteaga on 03-13-2023 Eosinophils (Bld) [#/Vol] 0.1 10*3/uL 0.0-0.45 [facility] Eosinophils/100 WBC Auto (Bl d)Ordered By: Kimberly Arteaga on 03-13-2023 Eosinophils/100 WBC (Bld) 1.7 % . [facility] Erythrocyte distribution wid th Auto (RBC) [Ratio]Ordered By: Kimberly Arteaga on 03-13-2023 Erythrocyte distribution width (RBC) [Ratio] 16.8 % 11.9-15.3 [facility] Glucose Glucometer (BldC) [M ass/Vol]Ordered By: Kimberly Arteaga on 03-13-2023 Glucose [Mass/Vol] 162 mg/dL [facility] Comment on above: Random Glucose Refer ence Range is dependent on time and content of last meal. Glucose of more than 200 mg/dL in a nonstressed, ambulatory subject supports the diagnosis of Diabetes Mellitus. Glucose [Mass/volume] in Ser um or PlasmaOrdered By: Kimberly Arteaga on 03-13-2023 Glucose [Mass/Vol] 130 mg/dL 70-100 [facility] Comment on above: ADA recommended refe rence rangeRandom Glucose Reference Range is dependent on time and content of last meal. Glucose of more than 200 mg/dL in a nonstressed, ambulatory subject supports the diagnosis of Diabetes Mellitus. Hematocrit Auto (Bld) [Volum e fraction]Ordered By: Kimberly Arteaga on 03-13-2023 Hematocrit (Bld) [Volume fraction] 32.5 % 34.0-46.4 [facility] Hemoglobin [Mass/volume] in BloodOrdered By: Kimberly Arteaga on 03-13-2023 Hemoglobin (Bld) [Mass/Vol] 10.9 g/dL 11.8-15.4 [facility] Leukocytes [#/volume] correc remberto for nucleated erythrocytes in Blood by Automated counOrdered By: Kimberly Arteaga on 03-13-2023 WBC corrected for nucl RBC Auto (Bld) [#/Vol] 5.0 10*3/uL 3.8-11.6 [facility] Lymphocytes Auto (Bld) [#/Vo l]Ordered By: Kimberly Arteaga on 03-13-2023 Lymphocytes (Bld) [#/Vol] 1.4 10*3/uL 1.00-4.8 [facility] Lymphocytes/100 WBC Auto (Bl d)Ordered By: Kimberly Arteaga on 03-13-2023 Lymphocytes/100 WBC (Bld) 28.5 % . [facility] MCH Auto (RBC) [Entitic mass ]Ordered By: Kimberly Arteaga on 03-13-2023 MCH (RBC) [Entitic mass] 28.6 pg 24.7-34.3 [facility] MCHC Auto (RBC) [Mass/Vol]Or dered By: Kimberly Arteaga on 03-13-2023 MCHC (RBC) [Mass/Vol] 33.5 g/dL 32.0-35.0 [facility] MCV Auto (RBC) [Entitic vol] Ordered By: Kimberly Arteaga on 03-13-2023 MCV (RBC) [Entitic vol] 85.3 fL 80-100 [facility] Monocytes Auto (Bld) [#/Vol] Ordered By: Kimberly Arteaga on 03-13-2023 Monocytes (Bld) [#/Vol] 0.3 10*3/uL 0.0-0.8 [facility] Monocytes/100 WBC Auto (Bld) Ordered By: Kimberly Arteaga on 03-13-2023 Monocytes/100 WBC (Bld) 6.9 % . [facility] Neutrophils Auto (Bld) [#/Vo l]Ordered By: Kimberly Arteaga on 03-13-2023 Neutrophils (Bld) [#/Vol] 3.1 10*3/uL 1.8-7.7 [facility] Neutrophils/100 WBC Auto (Bl d)Ordered By: Kimberly Arteaga on 03-13-2023 Neutrophils/100 WBC (Bld) 62.5 % . [facility] No Panel InformationOrdered By: Kimberly Arteaga on 03-13-2023 Estimated GFR (CKD-EPI) 41.239 mL/Min [facility] Creatinine Clearance (Chem 39.70 [facility] Nucleated erythrocytes [Pres ence] in Blood by Automated countOrdered By: Kimberly Arteaga on 03-13-2023 Nucleated RBC Auto Ql (Bld) 0.1 /100{WBC} 0-0.5 [facility] Platelet mean volume Auto (B ld) [Entitic vol]Ordered By: Kimberly Arteaga on 03-13-2023 Platelet mean volume (Bld) [Entitic vol] 7.2 fL 6.3-10.7 [facility] Platelets Auto (Bld) [#/Vol] Ordered By: Kimberly Arteaga on 03-13-2023 Platelets (Bld) [#/Vol] 152 10*3/uL 150-450 [facility] Potassium [Moles/volume] in Serum or PlasmaOrdered By: Kimberly Arteaga on 03-13-2023 Potassium [Moles/Vol] 3.8 mmol/L 3.5-5.1 [facility] RBC Auto (Bld) [#/Vol]Ordere d By: Kimberly Arteaga on 03-13-2023 RBC (Bld) [#/Vol] 3.81 10*6/uL 3.60-5.00 [facility] Serum or plasma anion gap de terminationOrdered By: Kimberly Arteaga on 03-13-2023 Anion gap [Moles/Vol] TNP [facility] Comment on above: Test not performed Sodium [Moles/volume] in Ser um or PlasmaOrdered By: Kimberly Arteaga on 03-13-2023 Sodium [Moles/Vol] 141 mmol/L 136-145 [facility] Urea nitrogen [Mass/volume] in Serum or PlasmaOrdered By: Kimberly Arteaga on 03-13-2023 Urea nitrogen [Mass/Vol] 28 mg/dL 7-25 [facility] WBC Auto (Bld) [#/Vol]Ordere d By: Kimberly Arteaga on 03-13-2023 WBC (Bld) [#/Vol] 5.0 10*3/uL 3.8-11.6 [facility] Cholesterol [Mass/volume] in Serum or PlasmaOrdered By: Kimberly Arteaga on 03-12-2023 Cholesterol [Mass/Vol] 118 mg/dL 140-200 [facility] Comment on above: Chol less than 200 m g/dl low riskChol 201-239 mg/dl borderline riskChol 240 mg/dl and greater high risk Cholesterol in LDL Calc [Mas s/Vol]Ordered By: Kimberly Arteaga on 03-12-2023 Cholesterol in LDL [Mass/Vol] 51 mg/dL 0-100 [facility] Comment on above: LDL ATP III CLASSIFI CATIONLDL less than 100 mg/dL OptimalLDL 100-129 mg/dL Near or above optimalLDL 130-159 mg/dL Borderline highLDL 160-189 mg/dL HighLDL greater than 189 mg/dL Very high Cholesterol in VLDL Calc [Ma ss/Vol]Ordered By: Kimberly Arteaga on 03-12-2023 Cholesterol in VLDL [Mass/Vol] 32 mg/dL [facility] Serum or plasma high density lipoprotein (HDL) cholesterol measurementOrdered By: Kimberly Arteaga on 03-12-2023 Cholesterol in HDL [Mass/Vol] 35 mg/dL 35-85 [facility] Comment on above: HDL CHOL ATP-III CLA SSIFICATION Cardiovascular RiskHDL > or equal to 60 mg/dL LOWHDL < 40 mg/dL HIGH Serum or plasma total choles terol/high density lipoprotein (HDL) cholesterol mass ratOrdered By: Kimberly Arteaga on 03-12-2023 Cholesterol.total/Cho lesterol in HDL [Mass ratio] 3.4 {ratio} <5.0 [facility] Triglyceride [Mass/volume] i n Serum or PlasmaOrdered By: Kimberly Arteaga on 03-12-2023 Triglyceride [Mass/Vol] 160 mg/dL 0-149 [facility] Comment on above: TRIG ATP III CLASSIF ICATIONTRIG less than 150 mg/dL NormalTRIG 150-199 mg/dL Borderline highTRIG 200-500 mg/dL High TRIG greater than 500 mg/dL Very highStandard traceable to the Center for Disease Conrtrol and Prevention (CDC) test method. Activated partial thrombopla stin time (aPTT) in platelet poor plasma by coagulation aOrdered By: Anthony Rose on 03-11-2023 aPTT Coag (PPP) [Time] 33.9 s 25.1-36.5 [facility] Automated erythrocytes count in urine sediment (number/area)Ordered By: Anthony Rose on 03-11-2023 RBC Auto (Urine sed) [#/Area] 0-1 [HPF] 0-4 [facility] Automated leukocytes count i n urine sediment (number/area)Ordered By: Anthony Rose on 03-11-2023 WBC Auto (Urine sed) [#/Area] 10-19 [HPF] 0-4 [facility] Bilirubin Test strip Ql (U)O rdered By: Anthony Rose on 03-11-2023 Bilirubin Ql (U) Negative Negative [facility] Color Auto (U)Ordered By: Sobeida Rose on 03-11-2023 Color (U) Yellow Yellow [facility] Creatine kinase [Enzymatic a ctivity/volume] in Serum or PlasmaOrdered By: Anthony Rose on 03-11-2023 CK [Catalytic activity/Vol] 64 U/L 30-223 [facility] Creatinine (Bld) [Mass/Vol]O rdered By: Anthony Rose on 03-11-2023 Creatinine [Mass/Vol] 1.7 mg/dL 0.6-1.3 [facility] Comment on above: ER/ESD physician is notified/shown all ISTAT results.Critical values may be confirmed by laboratory testing ifdeemed necessary by ER attending doctor. Ketones Auto test strip (U) [Mass/Vol]Ordered By: Anthony Rose on 03-11-2023 Ketones (U) [Mass/Vol] Negative Negative [facility] Laboratory - CoagulationOrde red By: Anthony Rose on 03-11-2023 PT Coag (PPP) [Time] 13.5 s 9.0-12.9 [facility] - UrinalysisOrder ed By: Anthony Rose on 03-11-2023 Hyaline casts LM Ql (Urine sed) 0-8 [LPF] 0-8 [facility] Monocyte distribution width [Entitic volume] in Blood by AutomatedOrdered By: Anthony Rose on 03-11-2023 Monocyte distribution width Auto (Bld) [Entitic vol] 17.19 % 0.00-20.00 [facility] Nitrite Test strip Ql (U)Ord ered By: Anthony Rose on 03-11-2023 Nitrite Ql (U) Negative Negative [facility] No Panel InformationOrdered By: Anthony Rose on 03-11-2023 Bedside Glucose Comment Glu2: cleaned meter [facility] Platelet poor plasma interna tional normalized ratio (INR) by coagulation assay (relatOrdered By: Anthony Rose on 03-11-2023 INR Coag (PPP) [Relative time] 1.2 {INR} [facility] Comment on above: INR Therapeutic Rang e [...] Protein Auto test strip (U) [Mass/Vol]Ordered By: Anthony Rose on 03-11-2023 Protein (U) [Mass/Vol] Negative Negative [facility] Specific gravity Auto test s trip (U) [Rel density]Ordered By: Anthony Rose on 03-11-2023 Specific gravity (U) [Rel density] 1.020 1.001-1.030 [facility] Squamous epithelial cells de tection in urine sediment by light microscopyOrdered By: Anthony Rose on 03-11-2023 Epithelial cells.squamous LM Ql (Urine sed) 5-9 [HPF] 0-2 [facility] Troponin I.cardiac [Mass/vol ume] in Serum or Plasma by Detection limit <= 0.01 ng/Ordered By: Anthony Rose on 03-11-2023 Troponin I.cardiac DL <= 0.01 ng/mL [Mass/Vol] 3.7 pg/mL 0.0-15.0 [facility] Urine bacteria detection by automated methodOrdered By: Anthony Rose on 03-11-2023 Bacteria Auto Ql (U) None seen None Seen [facility] Urine clarity by refractomet ry automatedOrdered By: Anthony Rose on 03-11-2023 Clarity Refractometry automated (U) Clear Clear [facility] Urine culture routineOrdered By: Anthony Rose on 03-11-2023 Bacteria identified Cx Nom (U) Escherichia coli [facility] Urine glucose measurement by automated test strip (mass/volume)Ordered By: Anthony Rose on 03-11-2023 Glucose Auto test strip (U) [Mass/Vol] Normal mg/dL Normal [facility] Urine hemoglobin detection b y automated test stripOrdered By: Anthony Rose on 03-11-2023 Hemoglobin Auto test strip Ql (U) Negative Negative [facility] Urine leukocyte esterase det ection by automated test stripOrdered By: Anthony Rose on 03-11-2023 Leukocyte esterase Auto test strip Ql (U) 2+ Negative [facility] Urobilinogen Auto test strip (U) [Mass/Vol]Ordered By: Anthony Rose on 03-11-2023 Urobilinogen (U) [Mass/Vol] Normal mg/dL Normal [facility] pH Auto test strip (U)Ordere d By: Anthony Rose on 03-11-2023 pH (U) 5.0 [pH] 5.0-9.0 [facility] MAGNESIUMon 04-10-2023 Magnesium [Mass/Vol] 1.3 mg/dL Critically low 1.8-2.4 [facility] Comment on above: Performed By: #### M G #### [facility] [address] [address] [address] Anamika Varghese Albumin [Mass/volume] in Ser um or PlasmaOrdered By: Vinay Bunting on 01-16-2023 Albumin [Mass/Vol] 3.6 g/dL 3.2-5.5 [facility] Alkaline phosphatase [Enzyma tic activity/volume] in Serum or PlasmaOrdered By: Vinay Bunting on 01-16-2023 ALP [Catalytic activity/Vol] 100 U/L 32-92 [facility] Aspartate aminotransferase [ Enzymatic activity/volume] in Serum or PlasmaOrdered By: Vinay Bunting on 01-16-2023 AST [Catalytic activity/Vol] 31 U/L 10-42 [facility] Basophils Auto (Bld) [#/Vol] Ordered By: Vinay Bunting on 01-16-2023 Basophils (Bld) [#/Vol] 0.0 10*3/uL 0.0-0.2 [facility] Basophils/100 WBC Auto (Bld) Ordered By: Vinay Bunting on 01-16-2023 Basophils/100 WBC (Bld) 0.2 % . [facility] Bilirubin.total [Mass/volume ] in Serum or PlasmaOrdered By: Vinay Bunting on 01-16-2023 Bilirubin [Mass/Vol] 0.5 mg/dL 0.3-1.2 [facility] Calcium [Mass/volume] in Ser um or PlasmaOrdered By: Vinay Bunting on 01-16-2023 Calcium [Mass/Vol] 8.2 mg/dL 8.2-10.2 [facility] Carbon dioxide, total [Moles /volume] in Serum or PlasmaOrdered By: Vinay Bunting on 01-16-2023 CO2 [Moles/Vol] 28.0 mmol/L 22.0-30.0 [facility] Chloride [Moles/volume] in S hilda or PlasmaOrdered By: Vinay Bunting on 01-16-2023 Chloride [Moles/Vol] 101 mmol/L 95-114 [facility] Cholesterol [Mass/volume] in Serum or PlasmaOrdered By: Vinay Bunhomer on 01-16-2023 Cholesterol [Mass/Vol] 130 mg/dL 140-200 [facility] Comment on above: Chol less than 200 m g/dl low riskChol 201-239 mg/dl borderline riskChol 240 mg/dl and greater high risk Cholesterol in LDL Calc [Mas s/Vol]Ordered By: Vinay Bunting on 01-16-2023 Cholesterol in LDL [Mass/Vol] 74 mg/dL 0-100 [facility] Comment on above: LDL ATP III CLASSIFI CATIONLDL less than 100 mg/dL OptimalLDL 100-129 mg/dL Near or above optimalLDL 130-159 mg/dL Borderline highLDL 160-189 mg/dL HighLDL greater than 189 mg/dL Very high Cholesterol in VLDL Calc [Ma ss/Vol]Ordered By: Vinay Bunting on 01-16-2023 Cholesterol in VLDL [Mass/Vol] 21 mg/dL [facility] Creatinine and Glomerular fi ltration rate.predicted panel (S/P/Bld)Ordered By: Vinay Bunting on 01-16-2023 Creatinine [Mass/Vol] 1.51 mg/dL 0.44-1.03 [facility] Eosinophils Auto (Bld) [#/Vo l]Ordered By: Vinay Bunhomer on 01-16-2023 Eosinophils (Bld) [#/Vol] 0.1 10*3/uL 0.0-0.45 [facility] Eosinophils/100 WBC Auto (Bl d)Ordered By: Vinay Bunting on 01-16-2023 Eosinophils/100 WBC (Bld) 2.2 % . [facility] Erythrocyte distribution wid th Auto (RBC) [Ratio]Ordered By: Vinay Bunhomer on 01-16-2023 Erythrocyte distribution width (RBC) [Ratio] 17.4 % 11.9-15.3 [facility] Estimated glomerular filtrat ion rate (GFR) non- AmericanOrdered By: Vinay Bunting on 01-16-2023 GFR/1.73 sq M.predicted among non-blacks MDRD (S/P/Bld) [Vol rate/Area] 34 mL/Min [facility] Globulin Calc (S) [Mass/Vol] Ordered By: Vinay Matta on 01-16-2023 Globulin (S) [Mass/Vol] 2.3 g/dL [facility] Glucose [Mass/volume] in Ser um or PlasmaOrdered By: Vinay Matta on 01-16-2023 Glucose [Mass/Vol] 162 mg/dL 70-100 [facility] Comment on above: ADA recommended refe rence rangeRandom Glucose Reference Range is dependent on time and content of last meal. Glucose of more than 200 mg/dL in a nonstressed, ambulatory subject supports the diagnosis of Diabetes Mellitus. Glucose mean value [Mass/vol ume] in Blood Estimated from glycated hemoglobinOrdered By: Vinay Matta on 01-16-2023 Average glucose Estimated from glycated hemoglobin (Bld) [Mass/Vol] 171 mg/dL [facility] Hematocrit Auto (Bld) [Volum e fraction]Ordered By: Vinay Matta on 01-16-2023 Hematocrit (Bld) [Volume fraction] 31.4 % 34.0-46.4 [facility] Hemoglobin A1c percentageOrd ered By: Vinay Matta on 01-16-2023 HbA1c (Bld) [Mass fraction] 7.6 % 4.3-5.6 [facility] Comment on above: Increased risk for d iabetes: 5.7 - 6.4diabetes: >6.4glycemic control for adults with diabetes: <7.0 Hemoglobin [Mass/volume] in BloodOrdered By: Vinay Matta on 01-16-2023 Hemoglobin (Bld) [Mass/Vol] 10.6 g/dL 11.8-15.4 [facility] Leukocytes [#/volume] correc remberto for nucleated erythrocytes in Blood by Automated counOrdered By: Vinay Matta on 01-16-2023 WBC corrected for nucl RBC Auto (Bld) [#/Vol] 5.7 10*3/uL 3.8-11.6 [facility] Lymphocytes Auto (Bld) [#/Vo l]Ordered By: Vinay Matta on 01-16-2023 Lymphocytes (Bld) [#/Vol] 1.3 10*3/uL 1.00-4.8 [facility] Lymphocytes/100 WBC Auto (Bl d)Ordered By: Vinay Bunting on 01-16-2023 Lymphocytes/100 WBC (Bld) 22.6 % . [facility] MCH Auto (RBC) [Entitic mass ]Ordered By: Vinay Bunting on 01-16-2023 MCH (RBC) [Entitic mass] 28.7 pg 24.7-34.3 [facility] MCHC Auto (RBC) [Mass/Vol]Or dered By: Vinay Bunting on 01-16-2023 MCHC (RBC) [Mass/Vol] 33.7 g/dL 32.0-35.0 [facility] MCV Auto (RBC) [Entitic vol] Ordered By: Vinay Bunting on 01-16-2023 MCV (RBC) [Entitic vol] 85.1 fL 80-100 [facility] Monocytes Auto (Bld) [#/Vol] Ordered By: Vinay Bunting on 01-16-2023 Monocytes (Bld) [#/Vol] 0.3 10*3/uL 0.0-0.8 [facility] Monocytes/100 WBC Auto (Bld) Ordered By: Vinay Bunting on 01-16-2023 Monocytes/100 WBC (Bld) 4.5 % . [facility] Neutrophils Auto (Bld) [#/Vo l]Ordered By: Vinay Bunting on 01-16-2023 Neutrophils (Bld) [#/Vol] 4.0 10*3/uL 1.8-7.7 [facility] Neutrophils/100 WBC Auto (Bl d)Ordered By: Vinay Bunting on 01-16-2023 Neutrophils/100 WBC (Bld) 70.5 % . [facility] No Panel InformationOrdered By: Vinay Bunting on 01-16-2023 Estimated GFR () 41 mL/Min [facility] Comment on above: GFR estimated refere nce range: According to KDOQI guidelines, <60 ml/min/1.73m2 is sufficient to diagnose a patient with chronic kidney disease. Pharmacy Creatinine Clearance (Chem N/A [facility] Nucleated erythrocytes [Pres ence] in Blood by Automated countOrdered By: Vinay Bunting on 01-16-2023 Nucleated RBC Auto Ql (Bld) 0.1 /100{WBC} 0-0.5 [facility] Platelet mean volume Auto (B ld) [Entitic vol]Ordered By: Vinay Bunting on 01-16-2023 Platelet mean volume (Bld) [Entitic vol] 7.4 fL 6.3-10.7 [facility] Platelets Auto (Bld) [#/Vol] Ordered By: Vinay Bunting on 01-16-2023 Platelets (Bld) [#/Vol] 152 10*3/uL 150-450 [facility] Potassium [Moles/volume] in Serum or PlasmaOrdered By: Vinay Bunting on 01-16-2023 Potassium [Moles/Vol] 4.0 mmol/L 3.5-5.1 [facility] Protein [Mass/volume] in Ser um or PlasmaOrdered By: Vinay Bunting on 01-16-2023 Protein [Mass/Vol] 5.9 g/dL 6.1-7.9 [facility] RBC Auto (Bld) [#/Vol]Ordere d By: Vinay Bunting on 01-16-2023 RBC (Bld) [#/Vol] 3.69 10*6/uL 3.60-5.00 [facility] Serum or plasma alanine stubbs otransferase measurement without P-5'-P (enzymatic activiOrdered By: Vinay Bunting on 01-16-2023 ALT No additional P-5'-P [Catalytic activity/Vol] 26 U/L 10-60 [facility] Serum or plasma albumin/glob ulin mass ratioOrdered By: Vinay Bunting on 01-16-2023 Albumin/Globulin [Mass ratio] 1.6 {ratio} [facility] Serum or plasma anion gap de terminationOrdered By: Vinay Bunting on 01-16-2023 Anion gap [Moles/Vol] 16.0 mmol/L 6.0-15.0 [facility] Serum or plasma high density lipoprotein (HDL) cholesterol measurementOrdered By: Vinay Bunting on 01-16-2023 Cholesterol in HDL [Mass/Vol] 34 mg/dL 35-85 [facility] Comment on above: HDL CHOL ATP-III CLA SSIFICATION Cardiovascular RiskHDL > or equal to 60 mg/dL LOWHDL < 40 mg/dL HIGH Serum or plasma total choles terol/high density lipoprotein (HDL) cholesterol mass ratOrdered By: Vinay Bunting on 01-16-2023 Cholesterol.total/Cho lesterol in HDL [Mass ratio] 3.8 {ratio} <5.0 [facility] Sodium [Moles/volume] in Ser um or PlasmaOrdered By: Vinay Bunting on 01-16-2023 Sodium [Moles/Vol] 141 mmol/L 136-146 [facility] Triglyceride [Mass/volume] i n Serum or PlasmaOrdered By: Vinay Bunting on 01-16-2023 Triglyceride [Mass/Vol] 109 mg/dL 35-149 [facility] Comment on above: TRIG ATP III CLASSIF ICATIONTRIG less than 150 mg/dL NormalTRIG 150-199 mg/dL Borderline highTRIG 200-500 mg/dL High TRIG greater than 500 mg/dL Very highStandard traceable to the Center for Disease Conrtrol and Prevention (CDC) test method. Urate [Mass/volume] in Serum or PlasmaOrdered By: Vinay Bunting on 01-16-2023 Urate [Mass/Vol] 5.7 mg/dL 2.6-7.2 [facility] Urea nitrogen [Mass/volume] in Serum or PlasmaOrdered By: Vinay Bunting on 01-16-2023 Urea nitrogen [Mass/Vol] 42 mg/dL 9-23 [facility] WBC Auto (Bld) [#/Vol]Ordere d By: Vinay Bunting on 01-16-2023 WBC (Bld) [#/Vol] 5.7 10*3/uL 3.8-11.6 [facility] Glucose Glucometer (BldC) [M ass/Vol]Ordered By: Rafael Edouard on 12-29-2022 Glucose [Mass/Vol] 165 mg/dL [facility] Comment on above: Random Glucose Refer ence Range is dependent on time and content of last meal. Glucose of more than 200 mg/dL in a nonstressed, ambulatory subject supports the diagnosis of Diabetes Mellitus. CBC W Auto Differential pane l (Bld)on 10-01-2022 Basophils (Bld) [#/Vol] <0.11 k/uL [facility] Basophils/100 WBC (Bld) 0.4 % [facility] Differential cell count method Nom (Bld) Auto [facility] Eosinophils (Bld) [#/Vol] 0.12 10*3/uL <0.46 k/uL [facility] Eosinophils/100 WBC (Bld) 2.2 % [facility] Erythrocyte distribution width (RBC) [Ratio] 16.9 % High 11.5 - 15.0 % [facility] Hematocrit (Bld) [Volume fraction] 27.7 % Low 36.0 - 46.0 % [facility] Hemoglobin (Bld) [Mass/Vol] 8.5 g/dL Low 11.5 - 15.5 g/dL [facility] Immature granulocytes (Bld) [#/Vol] <0.10 k/uL [facility] Immature granulocytes/100 WBC (Bld) 0.2 % [facility] Lymphocytes (Bld) [#/Vol] 1.07 10*3/uL 1.00 - 4.00 k/uL [facility] Lymphocytes/100 WBC (Bld) 19.6 % [facility] MCH (RBC) [Entitic mass] 25.3 pg Low 26.0 - 34.0 pg [facility] MCHC (RBC) [Mass/Vol] 30.7 g/dL 30.5 - 36.0 g/dL [facility] MCV (RBC) [Entitic vol] 82.4 fL 80.0 - 100.0 fL [facility] Monocytes (Bld) [#/Vol] 0.25 10*3/uL <0.87 k/uL [facility] Monocytes/100 WBC (Bld) 4.6 % [facility] Neutrophils (Bld) [#/Vol] 3.99 10*3/uL 1.45 - 7.50 k/uL [facility] Neutrophils/100 WBC (Bld) 73.0 % [facility] Nucleated RBC (Bld) [#/Vol] <0.01 k/uL [facility] Nucleated RBC/100 WBC (Bld) [Ratio] 0.0 /100 WBC [facility] Platelet mean volume (Bld) [Entitic vol] 9.4 fL 9.0 - 12.7 fL [facility] Platelets (Bld) [#/Vol] 170 10*3/uL 150 - 400 k/uL [facility] RBC (Bld) [#/Vol] 3.36 10*6/uL Low 3.90 - 5.2 0 m/uL [facility] WBC (Bld) [#/Vol] 5.46 10*3/uL 3.70 - 11.00 k/uL [facility] Comprehensive metabolic 2000 panelon 10-01-2022 Albumin [Mass/Vol] 4.3 g/dL 3.9 - 4.9 g/dL [facility] ALP [Catalytic activity/Vol] 120 U/L 34 - 123 U/L [facility] ALT [Catalytic activity/Vol] 20 U/L 7 - 38 U/L [facility] Anion gap [Moles/Vol] 12 mmol/L 9 - 18 mmol/L [facility] AST [Catalytic activity/Vol] 28 U/L 13 - 35 U/L [facility] Bilirubin [Mass/Vol] 0.2 mg/dL 0.2 - 1 .3 mg/dL [facility] Calcium [Mass/Vol] 8.8 mg/dL 8.5 - 10. 2 mg/dL [facility] Chloride [Moles/Vol] 109 mmol/L High 97 - 10 5 mmol/L [facility] CO2 [Moles/Vol] 27 mmol/L 22 - 30 mmol/L [facility] Creatinine [Mass/Vol] 1.34 mg/dL High 0.58 - 0.96 mg/dL [facility] Estimated Glomerular Filtration Rate 42 mL/min/1.73m Low >=60 mL/min/1.73 m [facility] Glucose [Mass/Vol] 191 mg/dL High 74 - 99 mg/dL [facility] Potassium [Moles/Vol] 3.7 mmol/L 3.7 - 5.1 mmol/L [facility] Protein [Mass/Vol] 6.8 g/dL 6.3 - 8.0 g/dL [facility] Sodium [Moles/Vol] 148 mmol/L High 136 - 144 mmol/L [facility] Urea nitrogen [Mass/Vol] 35 mg/dL High 7 - 21 mg/dL [facility] LD LACTATE DEHYDROon 022 LDH [Catalytic activity/Vol] 163 U/L 135 - 214 U/L [facility] RETIC COUNTon 10-01-2022 Reticulocytes (Bld) [#/Vol] 0.24889 10*3/uL 0.018 - 0.100 M/uL [facility] Reticulocytes (Bld) [#/Vol]o n 10-01-2022 Reticulocytes/100 RBC (Bld) 2.8 % High 0.4 - 2.0 % [facility] HEMATOLOGYOrdered By: SYSTEM SYSTEM on 09-19-2022 Basophils/100 WBC (Bld) 0.3 % Normal 0.0 - 2.0 % [facility] Basophils/Leukocytes Auto (Bld) [Pure # fraction] 0.0 E9/L Normal 0.0 - 0.2 E9/L [facility] Eosinophils/100 WBC (Bld) 2.3 % Normal 0.0 - 8.0 % [facility] Eosinophils/Leukocyte s Auto (Bld) [Pure # fraction] 0.1 E9/L Normal 0.0 - 0.5 E9/L [facility] Lymphocytes/100 WBC (Bld) 21.9 % Normal 14.0 - 50.0 % [facility] Lymphocytes/Leukocyte s Auto (Bld) [Pure # fraction] 1.3 E9/L Normal 1.0 - 4.0 E9/L [facility] Monocytes/100 WBC (Bld) 5.0 % Normal 4.0 - 14.0 % [facility] Monocytes/Leukocytes Auto (Bld) [Pure # fraction] 0.3 E9/L Normal 0.2 - 1.0 E9/L [facility] Neutrophils/100 WBC (Bld) 70.5 % Normal 36.0 - 75.0 % [facility] Neutrophils/Leukocyte s Auto (Bld) [Pure # fraction] 4.3 E9/L [...] 25.6 pg Low 27.0 - 34.0 pg [facility] MCHC (RBC) [Mass/Vol] 33.1 g/dL Normal 31.4 - 36.0 gm/dL [facility] MCV (RBC) [Entitic vol] 77.5 fL Low 80.0 - 100.0 fL [facility] Platelet mean volume (Bld) [Entitic vol] 7.2 fL Normal 6.4 - 10.8 fL [facility] Platelets (Bld) [#/Vol] 189.0 E9/L Normal 150.0 - 500.0 E9/L [facility] RBC (Bld) [#/Vol] 3.6 E12/L Low 4.3 - 5.9 E12/L [facility] WBC corrected for nucl RBC Auto (Bld) [#/Vol] 6.1 E9/L Normal 4.0 - 11.0 E9/L [facility] BNPon 09-09-2022 Natriuretic peptide B (Bld) [Mass/Vol] 146.0 pg/mL Normal <=900.0 [facility] Comment on above: Performed By: #### B FLATWORK SUPERVISOR #### [facility] [address] [place] [address] Dr. Anamika Varghese CBC AUTO DIFFon 09-09-2022 BASO # 0.0 103/ul Normal 0.0-0.1 [facility] Comment on above: Performed By: #### C BC #### [facility] [address] [place] [address] Dr. Anamika Varghese Basophils/100 WBC (Bld) 0.4 % Normal 0.2-2.0 [facility] Comment on above: Performed By: #### C BC #### [facility] [address] [place] [address] Dr. Anamika Varghese EO # 0.2 103/ul Normal 0.0-0.7 [facility] Comment on above: Performed By: #### C BC #### [facility] [address] [place] [address] Dr. Anamika Varghese Eosinophils/100 WBC (Bld) 3.6 % Normal 0.9-7.0 [facility] Comment on above: Performed By: #### C BC #### [facility] [address] [place] [address] Dr. Anamika Varghese Erythrocyte distribution width (RBC) [Ratio] 16.4 % Critically high 11.0-15.0 [facility] Comment on above: Performed By: #### C BC #### [facility] [address] [place] [address] Dr. Aanmika Varghese Hematocrit (Bld) [Volume fraction] 28.9 % Critically low 36.0-48.0 [facility] Comment on above: Performed By: #### C BC #### [facility] [address] [place] [address] Dr. Anamika Varghese Hemoglobin (Bld) [Mass/Vol] 9.0 g/dL Critically low 12.0-16.0 [facility] Comment on above: Performed By: #### C BC #### [facility] [address] [place] [address] Dr. Anamika Varghese IG # 0.02 10e3/ul Normal 0.00-0.03 [facility] Comment on above: Performed By: #### C BC #### [facility] [address] [place] [address] Dr. Anamika Varghese IG % 0.3 % Normal 0.0-0.5 [facility] Comment on above: Performed By: #### C BC #### [facility] [address] [place] [address] Dr. Anamika Varghese LYMPH # 1.8 103/ul Normal 1.2-3.8 [facility] Comment on above: Performed By: #### C BC #### [facility] [address] [place] [address] Dr. Anamika Varghese Lymphocytes/100 WBC (Bld) 26.1 % Normal 20.5-60.0 [facility] Comment on above: Performed By: #### C BC #### [facility] [address] [place] [address] Dr. Anamika Varghese MANUAL DIFF REQ NO Normal [facility] Comment on above: Performed By: #### C BC #### [facility] [address] [address] [address] Anamika Varghese MCH (RBC) [Entitic mass] 25.8 pg Critically low 26.7-34.0 [facility] Comment on above: Performed By: #### C BC #### [facility] [address] [place] [address] Dr. Anamika Varghese MCHC (RBC) [Mass/Vol] 31.1 g/dL Normal 29.9-35.2 [facility] Comment on above: Performed By: #### C BC #### [facility] [address] [place] [address] Dr. Anamika Varghese MCV (RBC) [Entitic vol] 82.8 fL Normal 81.0-99.0 [facility] Comment on above: Performed By: #### C BC #### [facility] [address] [place] [address] Dr. Anamika Varghese MONO # 0.3 103/ul Normal 0.3-0.8 [facility] Comment on above: Performed By: #### C BC #### [facility] [address] [place] [address] Dr. Anamika Varghese Monocytes/100 WBC (Bld) 5.0 % Normal 1.7-12.0 [facility] Comment on above: Performed By: #### C BC #### [facility] [address] [place] [address] Dr. Anamika Varghese NEUT # 4.4 103/ul Normal 1.4-6.5 [facility] Comment on above: Performed By: #### C BC #### [facility] [address] [place] [address] Dr. Anamika Varghese Neutrophils/100 WBC (Bld) 64.6 % Normal 43.0-75.0 [facility] Comment on above: Performed By: #### C BC #### [facility] [address] [place] [address] Dr. Anamika Varghese Platelet mean volume (Bld) [Entitic vol] 8.7 fL Critically low 9.5-13.5 [facility] Comment on above: Performed By: #### C BC #### [facility] [address] [place] [address] Dr. Anamika Varghese PLT 188 103/ul Normal 150-450 [facility] Comment on above: Performed By: #### C BC #### [facility] [address] [place] [address] Dr. Anamika Varghese RBC 3.49 106/ul Critically low 4.20-5.40 [facility] Comment on above: Performed By: #### C BC #### [facility] [address] [place] [address] Dr. Anamika Varghese WBC 6.7 103/ul Normal 4.0-11.0 [facility] Comment on above: Performed By: #### C BC #### [facility] [address] [place] [address] Dr. Anamika Varghese GLYCOHEMOGLOBIN A1Con 2021 ADA RECOMMENDATION SEE BELOW Normal [facility] Comment on above: Result Comment: ADA RECOMMENDED LIMIT 4.0 - 6.0 ADA THERAPEUTIC TARGET < 7.0 ACTION SUGGESTED > 7.0 Performed By: #### F ETIBC, FERR, B12FOL #### [facility] [address] [place] [address] Dr. Anamika Varghese Glucose [Mass/Vol] 166 mg/dL Normal [facility] Comment on above: Performed By: #### F ETIBC, FERR, B12FOL #### [facility] [address] [place] [address] Dr. Anamika Varghese HbA1c (Bld) [Mass fraction] 7.4 % Critically high 4.5-6.2 [facility] Comment on above: Performed By: #### F ETIBC, FERR, B12FOL #### [facility] [address] [place] [address] Dr. Anamika Varghese LIPID PROFILEon 09-09-2022 CHOL-HDL RATIO NORM SEE BELOW Normal [facility] Comment on above: Result Comment: 3.3 - 4.4 LOW RISK 4.4 - 7.1 AVERAGE RISK 7.1 - 11.0 MODERATE RISK >11.0 HIGH RISK Performed By: #### L IPID, CMP #### [facility] [address] [address] [address] Anamika Varghese Cholesterol [Mass/Vol] 118 mg/dL Normal <=200 [facility] Comment on above: Performed By: #### L IPID, CMP #### [facility] [address] [address] [address] Anamika Varghese Cholesterol in HDL [Mass/Vol] 41 mg/dL Normal 40-60 [facility] Comment on above: Performed By: #### L IPID, CMP #### [facility] [address] [address] [address] Anamika Varghese Cholesterol in LDL [Mass/Vol] 60.4 mg/dL Normal [facility] Comment on above: Performed By: #### L IPID, CMP #### [facility] [address] [place] [address] Dr. Anamika Varghese Cholesterol.total/Cho lesterol in HDL [Mass ratio] 2.9 {ratio} Normal [facility] Comment on above: Performed By: #### L IPID, CMP #### [facility] [address] [address] [address] Anamika Varghese HDL NORMAL > or = 60 mg/dl - LO W CARDIOVASCULAR RISK <40 mg/dl - HIGH CARDIOVASCULAR RISK Normal [facility] Comment on above: Performed By: #### L IPID, CMP #### [facility] [address] [address] [address] Anamika Varghese LDL CALC NORMAL SEE BELOW Normal [facility] Comment on above: Result Comment: <100 mg/dl OPTIMAL 100 - 129 mg/dl NEAR OR ABOVE OPTIMAL 130 - 159 mg/dl BORDERLINE HIGH 160 - 189 mg/dl HIGH >190 mg/dl VERY HIGH Performed By: #### L IPID, CMP #### [facility] [address] [address] [address] Anamika Varghese Triglyceride [Mass/Vol] 83 mg/dL Normal <=150 [facility] Comment on above: Performed By: #### L IPID, CMP #### [facility] [address] [address] [address] Anamika Varghese VLDL CALC 16.6 mg/dL Normal [facility] Comment on above: Performed By: #### L IPID, CMP #### [facility] [address] [place] [address] Dr. Anamika Varghese MICROALB CREAT RATIO RANDOMo n 09-09-2022 mALB <1.3 Normal <=30.0 [facility] Comment on above: Performed By: #### F ETIBC, FERR, B12FOL #### [facility] [address] [place] [address] Dr. Anamika Varghese MALB CR RATIO 22.0 mg/g Normal 0.0-29.9 [facility] Comment on above: Performed By: #### F ETIBC, FERR, B12FOL #### [facility] [address] [place] [address] Dr. Anamika Varghese MALB CR RATIO RANGE SEE BELOW Normal [facility] Comment on above: Result Comment: NO M ICROALBUMINURIA 0-29 MG/G CLINICAL MICROALBUMINURIA 30-300 MG/G MACROALBUMINURIA >300 MG/G Performed By: #### F ETIBC, FERR, B12FOL #### [facility] [address] [place] [address] Dr. Anamika Varghese URINE CREAT 59.04 mg/dL Normal 20.00-300.0 0 [facility] Comment on above: Performed By: #### F ETIBC, FERR, B12FOL #### [facility] [address] [place] [address] Dr. Anamika Varghese PROF 14(COMP METB)on 09-09- 022 Albumin [Mass/Vol] 3.6 g/dL Normal 3.4-5.0 [facility] Comment on above: Performed By: #### L IPID, CMP #### [facility] [address] [place] [address] Dr. Anamika Varghese Albumin/Globulin [Mass ratio] 1.0 {ratio} Normal [facility] Comment on above: Performed By: #### L IPID, CMP #### [facility] [address] [place] [address] Dr. Anamika Varghese ALP [Catalytic activity/Vol] 128 U/L Critically high 46-116 [facility] Comment on above: Performed By: #### L IPID, CMP #### [facility] [address] [address] [address] Anamika Varghese ALT [Catalytic activity/Vol] 30 U/L Normal 14-59 [facility] Comment on above: Performed By: #### L IPID, CMP #### [facility] [address] [address] [address] Anamika Varghese Anion gap [Moles/Vol] 14.9 mmol/L Normal Th [facility] Comment on above: Performed By: #### L IPID, CMP #### [facility] [address] [place] [address] Dr. Anamika Varghese AST [Catalytic activity/Vol] 23 U/L Normal 15-37 [facility] Comment on above: Performed By: #### L IPID, CMP #### [facility] [address] [place] [address] Dr. Anamika Varghese Bilirubin [Mass/Vol] 0.3 mg/dL Normal 0.2-1.0 [facility] Comment on above: Performed By: #### L IPID, CMP #### [facility] [address] [place] [address] Dr. Anamika Varghese Calcium [Mass/Vol] 8.6 mg/dL Normal 8.5-10.1 [facility] Comment on above: Performed By: #### L IPID, CMP #### [facility] [address] [place] [address] Dr. Anamika Varghese Chloride [Moles/Vol] 105 mmol/L Normal 98-107 [facility] Comment on above: Performed By: #### L IPID, CMP #### [facility] [address] [place] [address] Dr. Anamika Varghese CO2 [Moles/Vol] 28.1 mmol/L Normal 21.0-32.0 [facility] Comment on above: Performed By: #### L IPID, CMP #### [facility] [address] [place] [address] Dr. Anamika Varghese Creatinine [Mass/Vol] 1.58 mg/dL Critically high 0.55-1.02 [facility] Comment on above: Performed By: #### L IPID, CMP #### [facility] [address] [address] [address] Anamika Varghese EGFR-AF ANGUILLAN 39 mL/min/1.73m2 Critically low >=60 [facility] Comment on above: Performed By: #### L IPID, CMP #### [facility] [address] [address] [address] Anamika Varghese EGFR-NON AF ANGUILLAN 32 mL/min/1.73m2 Critically low >=60 [facility] Comment on above: Performed By: #### L IPID, CMP #### [facility] [address] [address] [address] Anamika Varghese Globulin (S) [Mass/Vol] 3.6 g/dL Normal [facility] Comment on above: Performed By: #### L IPID, CMP #### [facility] [address] [address] [address] Anamika Varghese Glucose [Mass/Vol] 130 mg/dL Critically high 74-106 [facility] Comment on above: Performed By: #### L IPID, CMP #### [facility] [address] [address] [address] Anamika Varghese Potassium [Moles/Vol] 4.0 mmol/L Normal 3.5-5.1 [facility] Comment on above: Performed By: #### L IPID, CMP #### [facility] [address] [address] [address] Anamika Varghese Protein [Mass/Vol] 7.2 g/dL Normal 6.4-8.2 [facility] Comment on above: Performed By: #### L IPID, CMP #### [facility] [address] [address] [address] Anamika Varghese Sodium [Moles/Vol] 144 mmol/L Normal 136-145 [facility] Comment on above: Performed By: #### L IPID, CMP #### [facility] [address] [place], [place] [address] Dr. Anamika Varghese Urea nitrogen [Mass/Vol] 53.0 mg/dL Critically high 7.0-18.0 [facility] Comment on above: Performed By: #### L IPID, CMP #### [facility] [address] [place], [place] [address] Dr. Anamika Varghese Urea nitrogen/Creatinine [Mass ratio] 33.5 mg/mg Normal [facility] Comment on above: Performed By: #### L IPID, CMP #### [facility] [address] [place], [place] [address] Dr. Anamika Varghese Creatinine and Glomerular fi ltration rate.predicted panel (S/P/Bld)Ordered By: Anand Yusuf on 07-24-2022 Creatinine [Mass/Vol] 1.41 mg/dL 0.44-1.03 [facility] Estimated glomerular filtrat ion rate (GFR) non- AmericanOrdered By: Anand Yusuf on 07-24-2022 GFR/1.73 sq M.predicted among non-blacks MDRD (S/P/Bld) [Vol rate/Area] 37 mL/Min [facility] No Panel InformationOrdered By: Anand Yusuf on 07-24-2022 Estimated GFR () 44 mL/Min [facility] Comment on above: GFR estimated refere nce range: According to KDOQI guidelines, <60 ml/min/1.73m2 is sufficient to diagnose a patient with chronic kidney disease. Pharmacy Creatinine Clearance (Chem N/A [facility] Serum or plasma anion gap de terminationOrdered By: Anand Yusuf on 07-24-2022 Anion gap [Moles/Vol] 17.5 mmol/L 6.0-15.0 [facility] Serum or plasma calcium emperatriz urement (mass/volume)Ordered By: Anand Yusuf on 07-24-2022 Calcium [Mass/Vol] 8.5 mg/dL 8.2-10.2 [facility] Serum or plasma chloride edvin surement (moles/volume)Ordered By: Annad Yusuf on 07-24-2022 Chloride [Moles/Vol] 105 mmol/L 95-114 [facility] Serum or plasma glucose emperatriz urement (mass/volume)Ordered By: Anand Yusuf on 07-24-2022 Glucose [Mass/Vol] 97 mg/dL 70-100 [facility] Comment on above: ADA recommended refe rence [...] on 07-24-2022 Potassium [Moles/Vol] 4.3 mmol/L 3.5-5.1 [facility] Serum or plasma sodium measu rement (moles/volume)Ordered By: Anand Yusuf on 07-24-2022 Sodium [Moles/Vol] 141 mmol/L 136-146 [facility] Serum or plasma total carbon dioxide measurement (moles/volume)Ordered By: Anand Yusuf on 07-24-2022 CO2 [Moles/Vol] 22.8 mmol/L 22.0-30.0 [facility] Serum or plasma urea nitroge n measurement (mass/volume)Ordered By: Anand Yusuf on 07-24-2022 Urea nitrogen [Mass/Vol] 37 mg/dL 9-23 [facility] Urine culture routineOrdered By: Anand Yusuf on 07-24-2022 Bacteria identified Cx Nom (U) Escherichia coli [facility] Automated erythrocytes count in urine sediment (number/area)Ordered By: Anand Yusuf on 07-22-2022 RBC Auto (Urine sed) [#/Area] 0-1 [HPF] 0-4 [facility] Automated leukocytes count i n urine sediment (number/area)Ordered By: Anand Yusuf on 07-22-2022 WBC Auto (Urine sed) [#/Area] 5-9 [HPF] 0-4 [facility] Basophils Auto (Bld) [#/Vol] Ordered By: Anand Yusuf on 07-22-2022 Basophils (Bld) [#/Vol] 0.1 10*3/uL 0.0-0.2 [facility] Basophils/100 WBC Auto (Bld) Ordered By: Anand Yusuf on 07-22-2022 Basophils/100 WBC (Bld) 0.5 % . [facility] Bilirubin Test strip Ql (U)O rdered By: Anand Yusuf on 07-22-2022 Bilirubin Ql (U) Negative Negative [facility] Blood hemoglobin measurement (mass/volume)Ordered By: Anand Yusuf on 07-22-2022 Hemoglobin (Bld) [Mass/Vol] 9.6 g/dL 11.8-15.4 [facility] Blood leukocytes automated c ount (number/volume)Ordered By: Anand Yusuf on 07-22-2022 WBC (Bld) [#/Vol] 11.6 10*3/uL 4.5-11.0 [facility] Body fluid albumin measureme nt (mass/volume)Ordered By: Anand Yusuf on 07-22-2022 Albumin (Body fld) [Mass/Vol] 3.0 g/dL 3.2-5.5 [facility] Color Auto (U)Ordered By: Primo Yusuf on 07-22-2022 Color (U) Yellow Yellow [facility] Creatinine and Glomerular fi ltration rate.predicted panel (S/P/Bld)Ordered By: Anand Yusuf on 07-22-2022 Creatinine [Mass/Vol] 1.63 mg/dL 0.44-1.03 [facility] Eosinophils Auto (Bld) [#/Vo l]Ordered By: Anand Yusuf on 07-22-2022 Eosinophils (Bld) [#/Vol] 0.1 10*3/uL 0.0-0.45 [facility] Eosinophils/100 WBC Auto (Bl d)Ordered By: Anand Yusuf on 07-22-2022 Eosinophils/100 WBC (Bld) 1.0 % . [facility] Erythrocyte distribution wid th Auto (RBC) [Ratio]Ordered By: Anand Yusuf on 07-22-2022 Erythrocyte distribution width (RBC) [Ratio] 17.0 % 11.9-15.3 [facility] Estimated glomerular filtrat ion rate (GFR) non- AmericanOrdered By: Anand Yusuf on 07-22-2022 GFR/1.73 sq M.predicted among non-blacks MDRD (S/P/Bld) [Vol rate/Area] 31 mL/Min [facility] Globulin Calc (S) [Mass/Vol] Ordered By: Anand Yusuf on 07-22-2022 Globulin (S) [Mass/Vol] 3.3 g/dL [facility] Hematocrit Auto (Bld) [Volum e fraction]Ordered By: Anand Yusuf on 07-22-2022 Hematocrit (Bld) [Volume fraction] 28.6 % 34.0-46.4 [facility] Ketones Auto test strip (U) [Mass/Vol]Ordered By: Anand Yusuf on 07-22-2022 Ketones (U) [Mass/Vol] Trace Negative [facility] Laboratory - Chemistry and C hemistry - challengeOrdered By: Anand Yusuf on 07-22-2022 Magnesium [Mass/Vol] 1.4 mg/dL 1.6-2.6 [facility] Natriuretic peptide B (Bld) [Mass/Vol] 44.0 pg/mL 5-100 [facility] Laboratory - Hematology and Cell countsOrdered By: nAand Yusuf on 07-22-2022 Nucleated RBC/100 WBC (Bld) [Ratio] 0.0 % 0-0.5 [facility] Laboratory - UrinalysisOrder ed By: Anand Yusuf on 07-22-2022 Hyaline casts LM Ql (Urine sed) 0-8 [LPF] 0-8 [facility] Lymphocytes Auto (Bld) [#/Vo l]Ordered By: Anand Yusuf on 07-22-2022 Lymphocytes (Bld) [#/Vol] 1.5 10*3/uL 1.00-4.8 [facility] Lymphocytes/100 WBC Auto (Bl d)Ordered By: Anand Yusuf on 07-22-2022 Lymphocytes/100 WBC (Bld) 13.0 % . [facility] MCH Auto (RBC) [Entitic mass ]Ordered By: Anand Yusuf on 07-22-2022 MCH (RBC) [Entitic mass] 27.3 pg 24.7-34.3 [facility] MCHC Auto (RBC) [Mass/Vol]Or dered By: Anand Yusuf on 07-22-2022 MCHC (RBC) [Mass/Vol] 33.5 g/dL 32.0-35.0 [facility] MCV Auto (RBC) [Entitic vol] Ordered By: Anand Yusuf on 07-22-2022 MCV (RBC) [Entitic vol] 81.3 fL 80-100 [facility] Monocytes Auto (Bld) [#/Vol] Ordered By: Anand Yusuf on 07-22-2022 Monocytes (Bld) [#/Vol] 0.5 10*3/uL 0.0-0.8 [facility] Monocytes/100 WBC Auto (Bld) Ordered By: Anand Yusuf on 07-22-2022 Monocytes/100 WBC (Bld) 4.1 % . [facility] Neutrophils Auto (Bld) [#/Vo l]Ordered By: Anand Yusuf on 07-22-2022 Neutrophils (Bld) [#/Vol] 9.5 10*3/uL 1.8-7.7 [facility] Neutrophils/100 WBC Auto (Bl d)Ordered By: Anand Yusuf on 07-22-2022 Neutrophils/100 WBC (Bld) 81.4 % . [facility] Nitrite Test strip Ql (U)Ord ered By: Anand Yusuf on 07-22-2022 Nitrite Ql (U) Negative Negative [facility] No Panel InformationOrdered By: Anand Yusuf on 07-22-2022 Estimated GFR () 37 mL/Min [facility] Comment on above: GFR estimated refere nce range: According to KDOQI guidelines, <60 ml/min/1.73m2 is sufficient to diagnose a patient with chronic kidney disease. Pharmacy Creatinine Clearance (Chem 34.96 [facility] Platelet mean volume Auto (B ld) [Entitic vol]Ordered By: nAand Yusuf on 07-22-2022 Platelet mean volume (Bld) [Entitic vol] 7.3 fL 6.3-10.7 [facility] Platelets Auto (Bld) [#/Vol] Ordered By: Anand Yusuf on 07-22-2022 Platelets (Bld) [#/Vol] 253 10*3/uL 150-450 [facility] Protein Auto test strip (U) [Mass/Vol]Ordered By: Anand Yusuf on 07-22-2022 Protein (U) [Mass/Vol] Negative Negative [facility] Protein [Mass/volume] in Ser um or PlasmaOrdered By: Anand Yusuf on 07-22-2022 Protein [Mass/Vol] 6.3 g/dL 6.1-7.9 [facility] RBC Auto (Bld) [#/Vol]Ordere d By: Anand Yusuf on 07-22-2022 RBC (Bld) [#/Vol] 3.51 10*6/uL 3.60-5.00 [facility] Serum or plasma alanine stubbs otransferase measurement without P-5'-P (enzymatic activiOrdered By: Anand Yusuf on 07-22-2022 ALT No additional P-5'-P [Catalytic activity/Vol] 29 U/L 10-60 [facility] Serum or plasma albumin/glob ulin mass ratioOrdered By: Anand Yusuf on 07-22-2022 Albumin/Globulin [Mass ratio] 0.9 {ratio} [facility] Serum or plasma alkaline lorie sphatase measurement (enzymatic activity/volume)Ordered By: Anand Yusuf on 07-22-2022 ALP [Catalytic activity/Vol] 99 U/L 32-92 [facility] Serum or plasma anion gap de terminationOrdered By: Anand Yusuf on 07-22-2022 Anion gap [Moles/Vol] 14.3 mmol/L 6.0-15.0 [facility] Serum or plasma aspartate am inotransferase measurement (enzymatic activity/volume)Ordered By: Anand Yusuf on 07-22-2022 AST [Catalytic activity/Vol] 31 U/L 10-42 [facility] Serum or plasma calcium emperatriz urement (mass/volume)Ordered By: Anand Yusuf on 07-22-2022 Calcium [Mass/Vol] 9.0 mg/dL 8.2-10.2 [facility] Serum or plasma chloride edvin surement (moles/volume)Ordered By: Anand Yusuf on 07-22-2022 Chloride [Moles/Vol] 107 mmol/L 95-114 [facility] Serum or plasma glucose emperatriz urement (mass/volume)Ordered By: Anand Yusuf on 07-22-2022 Glucose [Mass/Vol] 168 mg/dL 70-100 [facility] Comment on above: ADA recommended refe rence [...] on 07-22-2022 Potassium [Moles/Vol] 5.4 mmol/L 3.5-5.1 [facility] Serum or plasma sodium measu rement (moles/volume)Ordered By: Anand Yusuf on 07-22-2022 Sodium [Moles/Vol] 140 mmol/L 136-146 [facility] Serum or plasma total biliru bin measurement (mass/volume)Ordered By: Anand Yusuf on 07-22-2022 Bilirubin [Mass/Vol] 0.6 mg/dL 0.3-1.2 [facility] Serum or plasma total carbon dioxide measurement (moles/volume)Ordered By: Anand Yusuf on 07-22-2022 CO2 [Moles/Vol] 24.1 mmol/L 22.0-30.0 [facility] Serum or plasma urea nitroge n measurement (mass/volume)Ordered By: Anand Yusuf on 07-22-2022 Urea nitrogen [Mass/Vol] 53 mg/dL 9- [facility] Specific gravity Auto test s trip (U) [Rel density]Ordered By: Anand Yusuf on 07-22-2022 Specific gravity (U) [Rel density] 1.019 1.001-1.030 [facility] Squamous epithelial cells de tection in urine sediment by light microscopyOrdered By: Anand Yusuf on 07-22-2022 Epithelial cells.squamous LM Ql (Urine sed) 1-2 [HPF] 0-2 [facility] Troponin I.cardiac [Mass/vol ume] in Serum or Plasma by High sensitivity methodOrdered By: Anand Yusuf on 07-22-2022 Troponin I.cardiac High sensitivity method [Mass/Vol] 4 pg/mL 0-15 [facility] Urine bacteria detection by automated methodOrdered By: Anand Yusuf on 07-22-2022 Bacteria Auto Ql (U) 4+ None Seen [facility] Urine clarity by refractomet ry automatedOrdered By: Anand Yusuf on 07-22-2022 Clarity Refractometry automated (U) Cloudy Clear [facility] Urine glucose measurement by automated test strip (mass/volume)Ordered By: Anand Yusuf on 07-22-2022 Glucose Auto test strip (U) [Mass/Vol] Normal mg/dL Normal [facility] Urine hemoglobin detection b y automated test stripOrdered By: Anand Yusuf on 07-22-2022 Hemoglobin Auto test strip Ql (U) Negative Negative [facility] Urine lactic acid measuremen tOrdered By: Anand Yusuf on 07-22-2022 Lactate (U) [Moles/Vol] 1.9 mmol/L 0.5-2.2 [facility] Urine leukocyte esterase det ection by automated test stripOrdered By: Anand Yusuf on 07-22-2022 Leukocyte esterase Auto test strip Ql (U) 2+ Negative [facility] Urobilinogen Auto test strip (U) [Mass/Vol]Ordered By: Anand Yusuf on 07-22-2022 Urobilinogen (U) [Mass/Vol] Normal mg/dL Normal [facility] pH Auto test strip (U)Ordere d By: Anand Yusuf on 07-22-2022 pH (U) 5.0 [pH] 5.0-9.0 [facility] FERRITINon 06-24-2022 Ferritin [Mass/Vol] 39.0 ng/mL Normal 8.0-252.0 [facility] Comment on above: Performed By: #### F ETIBC, FERR, B12FOL #### [facility] [address] [address] [address] Anamika Varghese IRON AND TIBCon 06-24-2022 % SATURATION 13.1 % Normal [facility] Comment on above: Performed By: #### F ETIBC, FERR, B12FOL #### [facility] [address] [place] [address] Dr. Anamika Varghese Iron [Mass/Vol] 52.0 ug/dL Normal 50.0-170.0 [facility] Comment on above: Performed By: #### F ETIBC, FERR, B12FOL #### [facility] [address] [place] [address] Dr. Anamika Varghese TIBC DIRECT 397.0 ug/dL Normal 250.0-450.0 [facility] Comment on above: Performed By: #### F ETIBC, FERR, B12FOL #### [facility] [address] [place] [address] Dr. Anamika Varghese LIVER PROFILEon 06-24-2022 Albumin [Mass/Vol] 3.5 g/dL Normal 3.4-5.0 [facility] Comment on above: Performed By: #### L IVER #### [facility] [address] [place] [address] Dr. Anamika Varghese Albumin/Globulin [Mass ratio] 1.2 {ratio} Normal [facility] Comment on above: Performed By: #### L IVER #### [facility] [address] [place] [address] Dr. Anamika Varghese ALP [Catalytic activity/Vol] 117 U/L Critically high 46-116 [facility] Comment on above: Performed By: #### L IVER #### [facility] [address] [place] [address] Dr. Anamika Varghese ALT [Catalytic activity/Vol] 30 U/L Normal 14-59 [facility] Comment on above: Performed By: #### L IVER #### [facility] [address] [place] [address] Dr. Anamika Varghese AST [Catalytic activity/Vol] 25 U/L Normal 15-37 [facility] Comment on above: Performed By: #### L IVER #### [facility] [address] [place] [address] Dr. Anamika Varghese BILI, CONJUGATED 0.2 mg/dL Normal 0.0-0.2 [facility] Comment on above: Performed By: #### L IVER #### [facility] [address] [place] [address] Dr. Anamika Varghese Bilirubin [Mass/Vol] 0.4 mg/dL Normal 0.2-1.0 [facility] Comment on above: Performed By: #### L IVER #### [facility] [address] [place] [address] Dr. Anamika Varghese Globulin (S) [Mass/Vol] 3.0 g/dL Normal [facility] Comment on above: Performed By: #### L IVER #### [facility] [address] [place] [address] Dr. Anamika Varghese Protein [Mass/Vol] 6.5 g/dL Normal 6.4-8.2 [facility] Comment on above: Performed By: #### L IVER #### [facility] [address] [place] [address] Dr. Anamika Varghese RETICULOCYTEon 06-24-2022 RETIC 3.27 % Critically high 0.60-3.10 [facility] Comment on above: Performed By: #### F ETIBC, FERR, B12FOL #### [facility] [address] [place] [address] Dr. Anamika Varghese VIT B12 AND FOLATEon 022 Cobalamin (Vitamin B12) [Mass/Vol] 206.0 pg/mL Normal 193.0-986.0 [facility] Comment on above: Performed By: #### F ETIBC, FERR, B12FOL #### [facility] [address] [place] [address] Dr. Anaimka Varghese FOLATE 20.20 ng/mL Normal 8.60-58.90 [facility] Comment on above: Performed By: #### F ETIBC, FERR, B12FOL #### [facility] [address] [place] [address] Dr. Anamika Varghese Basophils Auto (Bld) [#/Vol] Ordered By: Vinay Matta on 05-21-2022 Basophils (Bld) [#/Vol] 0.0 10*3/uL 0.0-0.2 [facility] Basophils/100 WBC Auto (Bld) Ordered By: Vinay Matta on 05-21-2022 Basophils/100 WBC (Bld) 0.4 % . [facility] Blood hemoglobin measurement (mass/volume)Ordered By: Vinay Matta on 05-21-2022 Hemoglobin (Bld) [Mass/Vol] 9.7 g/dL 11.8-15.4 [facility] Blood leukocytes automated c ount (number/volume)Ordered By: Vinay Matta on 05-21-2022 WBC (Bld) [#/Vol] 3.7 10*3/uL 4.5-11.0 [facility] Body fluid albumin measureme nt (mass/volume)Ordered By: Vinay Matta on 05-21-2022 Albumin (Body fld) [Mass/Vol] 3.3 g/dL 3.2-5.5 [facility] Cholesterol [Mass/volume] in Serum or PlasmaOrdered By: Vinay Matta on 05-21-2022 Cholesterol [Mass/Vol] 122 mg/dL 140-200 [facility] Comment on above: Chol less than 200 m g/dl low risk Chol 201-239 mg/dl borderline risk Chol 240 mg/dl and greater high risk Cholesterol in LDL Calc [Mas s/Vol]Ordered By: Vinay Matta on 05-21-2022 Cholesterol in LDL [Mass/Vol] 67 mg/dL 0-100 [facility] Comment on above: LDL ATP III CLASSIFI CATION LDL less than 100 mg/dL Optimal LDL 100-129 mg/dL Near or above optimal LDL 130-159 mg/dL Borderline high LDL 160-189 mg/dL High LDL greater than 189 mg/dL Very high Cholesterol in VLDL Calc [Ma ss/Vol]Ordered By: Vinay Matta on 05-21-2022 Cholesterol in VLDL [Mass/Vol] 13 mg/dL [facility] Creatinine and Glomerular fi ltration rate.predicted panel (S/P/Bld)Ordered By: Vinay Matta on 05-21-2022 Creatinine [Mass/Vol] 1.15 mg/dL 0.44-1.03 [facility] Eosinophils Auto (Bld) [#/Vo l]Ordered By: Vinay Matta on 05-21-2022 Eosinophils (Bld) [#/Vol] 0.1 10*3/uL 0.0-0.45 [facility] Eosinophils/100 WBC Auto (Bl d)Ordered By: Vinay Bunting on 05-21-2022 Eosinophils/100 WBC (Bld) 3.1 % . [facility] Erythrocyte distribution wid th Auto (RBC) [Ratio]Ordered By: Vinay Bunting on 05-21-2022 Erythrocyte distribution width (RBC) [Ratio] 16.3 % 11.9-15.3 [facility] Erythrocyte sedimentation ra te by Photometric methodOrdered By: Vinay Matta on 05-21-2022 ESR Photometric method (Bld) [Velocity] 9 mm/hr 0-29 [facility] Estimated glomerular filtrat ion rate (GFR) non- AmericanOrdered By: Vinay Matta on 05-21-2022 GFR/1.73 sq M.predicted among non-blacks MDRD (S/P/Bld) [Vol rate/Area] 46 mL/Min [facility] Globulin Calc (S) [Mass/Vol] Ordered By: Vinay Matta on 05-21-2022 Globulin (S) [Mass/Vol] 2.2 g/dL [facility] Glucose mean value [Mass/vol ume] in Blood Estimated from glycated hemoglobinOrdered By: Vinay Matta on 05-21-2022 Average glucose Estimated from glycated hemoglobin (Bld) [Mass/Vol] 166 mg/dL [facility] Hematocrit Auto (Bld) [Volum e fraction]Ordered By: Vinay Bunhomer on 05-21-2022 Hematocrit (Bld) [Volume fraction] 29.1 % 34.0-46.4 [facility] Hemoglobin A1c percentageOrd ered By: Vinay Bunhomer on 05-21-2022 HbA1c (Bld) [Mass fraction] 7.4 % 4.3-5.6 [facility] Comment on above: Increased risk for d iabetes: 5.7 - 6.4 diabetes: >6.4 glycemic control for adults with diabetes: <7.0 Laboratory - Hematology and Cell countsOrdered By: Vinay Bunhomer on 05-21-2022 Nucleated RBC/100 WBC (Bld) [Ratio] 0.1 % 0-0.5 [facility] Lymphocytes Auto (Bld) [#/Vo l]Ordered By: Vinay Bunting on 05-21-2022 Lymphocytes (Bld) [#/Vol] 1.0 10*3/uL 1.00-4.8 [facility] Lymphocytes/100 WBC Auto (Bl d)Ordered By: Vinay Bunting on 05-21-2022 Lymphocytes/100 WBC (Bld) 26.3 % . [facility] MCH Auto (RBC) [Entitic mass ]Ordered By: Vinay Bunting on 05-21-2022 MCH (RBC) [Entitic mass] 28.6 pg 24.7-34.3 [facility] MCHC Auto (RBC) [Mass/Vol]Or dered By: Vinay Bunting on 05-21-2022 MCHC (RBC) [Mass/Vol] 33.5 g/dL 32.0-35.0 [facility] MCV Auto (RBC) [Entitic vol] Ordered By: Vinay Bunting on 05-21-2022 MCV (RBC) [Entitic vol] 85.5 fL 80-100 [facility] Monocytes Auto (Bld) [#/Vol] Ordered By: Vinay Bunting on 05-21-2022 Monocytes (Bld) [#/Vol] 0.2 10*3/uL 0.0-0.8 [facility] Monocytes/100 WBC Auto (Bld) Ordered By: Vinay Bunting on 05-21-2022 Monocytes/100 WBC (Bld) 6.4 % . [facility] Neutrophils Auto (Bld) [#/Vo l]Ordered By: Vinay Bunting on 05-21-2022 Neutrophils (Bld) [#/Vol] 2.4 10*3/uL 1.8-7.7 [facility] Neutrophils/100 WBC Auto (Bl d)Ordered By: Vinay Bunting on 05-21-2022 Neutrophils/100 WBC (Bld) 63.8 % . [facility] No Panel InformationOrdered By: Vinay Bunting on 05-21-2022 Estimated GFR () 56 mL/Min [facility] Comment on above: GFR estimated refere nce range: According to KDOQI guidelines, <60 ml/min/1.73m2 is sufficient to diagnose a patient with chronic kidney disease. Pharmacy Creatinine Clearance (Chem N/A [facility] Platelet mean volume Auto (B ld) [Entitic vol]Ordered By: Vinay Bunting on 05-21-2022 Platelet mean volume (Bld) [Entitic vol] 7.3 fL 6.3-10.7 [facility] Platelets Auto (Bld) [#/Vol] Ordered By: Vinay Bunting on 05-21-2022 Platelets (Bld) [#/Vol] 153 10*3/uL 150-450 [facility] Protein [Mass/volume] in Ser um or PlasmaOrdered By: Vinay Bunting on 05-21-2022 Protein [Mass/Vol] 5.5 g/dL 6.1-7.9 [facility] RBC Auto (Bld) [#/Vol]Ordere d By: Vinay Bunting on 05-21-2022 RBC (Bld) [#/Vol] 3.40 10*6/uL 3.60-5.00 [facility] Serum or plasma alanine stubbs otransferase measurement without P-5'-P (enzymatic activiOrdered By: Vinay Bunting on 05-21-2022 ALT No additional P-5'-P [Catalytic activity/Vol] 28 U/L 10-60 [facility] Serum or plasma albumin/glob ulin mass ratioOrdered By: Vinay Bunting on 05-21-2022 Albumin/Globulin [Mass ratio] 1.5 {ratio} [facility] Serum or plasma alkaline lorie sphatase measurement (enzymatic activity/volume)Ordered By: Vinay Bunting on 05-21-2022 ALP [Catalytic activity/Vol] 96 U/L 32-92 [facility] Serum or plasma aspartate am inotransferase measurement (enzymatic activity/volume)Ordered By: Vinay Bunting on 05-21-2022 AST [Catalytic activity/Vol] 30 U/L 10-42 [facility] Serum or plasma calcium emperatriz urement (mass/volume)Ordered By: Vinay Bunting on 05-21-2022 Calcium [Mass/Vol] 8.5 mg/dL 8.2-10.2 [facility] Serum or plasma chloride edvin surement (moles/volume)Ordered By: Vinay Matta on 05-21-2022 Chloride [Moles/Vol] 102 mmol/L 95-114 [facility] Serum or plasma glucose emperatriz urement (mass/volume)Ordered By: Vinay Matta on 05-21-2022 Glucose [Mass/Vol] 167 mg/dL 70-100 [facility] Comment on above: ADA recommended refe rence range Random Glucose Reference Range is dependent on time and content of last meal. Glucose of more than 200 mg/dL in a nonstressed, ambulatory subject supports the diagnosis of Diabetes Mellitus. Serum or plasma high density lipoprotein (HDL) cholesterol measurementOrdered By: Vinay Matta on 05-21-2022 Cholesterol in HDL [Mass/Vol] 41 mg/dL 35-85 [facility] Comment on above: HDL CHOL ATP-III CLA SSIFICATION Cardiovascular Risk HDL > or equal to 60 mg/dL LOW HDL < 40 mg/dL HIGH Serum or plasma potassium me asurement (moles/volume)Ordered By: Vinay Matta on 05-21-2022 Potassium [Moles/Vol] 4.5 mmol/L 3.5-5.1 [facility] Serum or plasma rheumatoid f actor measurement (units/volume)Ordered By: Vinay Matta on 05-21-2022 Rheumatoid factor Qn [IU]/mL <14.0 [facility] Comment on above: Performed at: [address] [id number] [employer] Software Engineer: Darren Ashby PhD, Phone: [phone] Serum or plasma sodium measu rement (moles/volume)Ordered By: Vinay Matta on 05-21-2022 Sodium [Moles/Vol] 140 mmol/L 136-146 [facility] Serum or plasma total biliru bin measurement (mass/volume)Ordered By: Vinay Matta on 05-21-2022 Bilirubin [Mass/Vol] 0.5 mg/dL 0.3-1.2 [facility] Serum or plasma total carbon dioxide measurement (moles/volume)Ordered By: Vinay Matta on 05-21-2022 CO2 [Moles/Vol] 27.2 mmol/L 22.0-30.0 [facility] Serum or plasma total choles terol/high density lipoprotein (HDL) cholesterol mass ratOrdered By: Vinay Matta on 05-21-2022 Cholesterol.total/Cho lesterol in HDL [Mass ratio] 3.0 {ratio} <5.0 [facility] Serum or plasma urea nitroge n measurement (mass/volume)Ordered By: Vinay Matta on 05-21-2022 Urea nitrogen [Mass/Vol] 24 mg/dL 9- [facility] Serum or plasma uric acid me asurement (mass/volume)Ordered By: Vinayreji Matta on 05-21-2022 Urate [Mass/Vol] 4.1 mg/dL 2.6-7.2 [facility] Triglyceride [Mass/volume] i n Serum or PlasmaOrdered By: Vinay Matta on 05-21-2022 Triglyceride [Mass/Vol] 68 mg/dL 35-149 [facility] Comment on above: TRIG ATP III CLASSIF ICATION TRIG less than 150 mg/dL Normal TRIG 150-199 mg/dL Borderline high TRIG 200-500 mg/dL High TRIG greater than 500 mg/dL Very high Standard traceable to the Center for Disease Conrtrol and Prevention (CDC) test method. Automated basophil %on 01-31 Basophils/100 WBC (Bld) 0.4 % [facility] Automated basophil counton 0 01-31-2021 Basophils (Bld) [#/Vol] 0.0 10*3/uL 0.0-0.2 [facility] Automated blood lymphocyte c ount (number/volume)on 01-31-2021 Lymphocytes (Bld) [#/Vol] 1.3 10*3/uL 1.00-4.8 [facility] Automated blood lymphocyte c ount as percentage of total leukocyteson 01-31-2021 Lymphocytes/100 WBC (Bld) 19.5 % [facility] Automated blood monocyte cou nton 01-31-2021 Monocytes (Bld) [#/Vol] 0.3 10*3/uL 0.0-0.8 [facility] Automated blood platelet cou nt (count/volume)on 01-31-2021 Platelets (Bld) [#/Vol] 158 10*3/uL 150-450 [facility] Automated blood platelet edvin n volume measurementon 01-31-2021 Platelet mean volume (Bld) [Entitic vol] 7.2 fL 6.3-10.7 [facility] Automated eosinophil %on Eosinophils/100 WBC (Bld) 3.2 % [facility] Automated eosinophil counton 01-31-2021 Eosinophils (Bld) [#/Vol] 0.2 10*3/uL 0.0-0.45 [facility] Automated erythrocyte distri bution width ratioon 01-31-2021 Erythrocyte distribution width (RBC) [Ratio] 16.8 % 11.9-15.3 [facility] Automated erythrocyte mean c orpuscular hemoglobin (mass per erythrocyte)on 01-31-2021 MCH (RBC) [Entitic mass] 29.4 pg 24.7-34.3 [facility] Automated erythrocyte mean c orpuscular hemoglobin concentration measurement (mass/volon 01-31-2021 MCHC (RBC) [Mass/Vol] 33.9 g/dL 32.0-35.[address] [facility] Automated erythrocyte mean c orpuscular volumeon 01-31-2021 MCV (RBC) [Entitic vol] 86.6 fL 80-100 [facility] Automated erythrocytes count in urine sediment (number/area)on 01-31-2021 RBC Auto (Urine sed) [#/Area] 0-1 [HPF] [facility] Automated leukocytes count i n urine sediment (number/area)on 01-31-2021 WBC Auto (Urine sed) [#/Area] 3-4 [HPF] [facility] Automated monocyte %on 01-31 Monocytes/100 WBC (Bld) 5.0 % [facility] Automated neutrophil %on Neutrophils/100 WBC (Bld) 71.9 % [facility] Automated urine color determ inationon 01-31-2021 Color (U) Yellow Yellow [facility] Blood erythrocytes automated count (number/volume)on 01-31-2021 RBC (Bld) [#/Vol] 4.01 10*6/uL 3.60-5.00 [facility] Blood hemoglobin measurement (mass/volume)on 01-31-2021 Hemoglobin (Bld) [Mass/Vol] 11.8 g/dL 11.8-15.4 [facility] Blood leukocytes automated c ount (number/volume)on 01-31-2021 WBC (Bld) [#/Vol] 6.7 10*3/uL 4.5-11.0 [facility] Blood neutrophil count by au tomated method (number/volume)on 01-31-2021 Neutrophils (Bld) [#/Vol] 4.8 10*3/uL 1.8-7.7 [facility] Body fluid albumin measureme nt (mass/volume)on 01-31-2021 Albumin (Body fld) [Mass/Vol] 3.7 g/dL 3.2-5.5 [facility] Cholesterol [Mass/volume] in Serum or Plasmaon 01-31-2021 Cholesterol [Mass/Vol] 129 mg/dL 140-200 [facility] Comment on above: Chol less than 200 m g/dl low riskChol 201-239 mg/dl borderline riskChol 240 mg/dl and greater high risk Cholesterol in LDL [Mass/vol ume] in Serum or Plasma by calculationon 01-31-2021 Cholesterol in LDL [Mass/Vol] 63 mg/dL 0-100 [facility] Comment on above: LDL ATP III CLASSIFI CATIONLDL less than 100 mg/dL OptimalLDL 100-129 mg/dL Near or above optimalLDL 130-159 mg/dL Borderline highLDL 160-189 mg/dL HighLDL greater than 189 mg/dL Very high Cholesterol in VLDL [Mass/vo lume] in Serum or Plasma by calculationon 01-31-2021 Cholesterol in VLDL [Mass/Vol] 22 mg/dL [facility] Creatinine [Mass/volume] in Urineon 01-31-2021 Creatinine (U) [Mass/Vol] 127.7 mg/dL [facility] Comment on above: No reference range e stablished Estimated glomerular filtrat ion rate (GFR) non- Americanon 01-31-2021 GFR/1.73 sq M predicted among non-blacks MDRD (S/P/Bld) [Vol rate/Area] 45 mL/min/{1.73_m2} [facility] Glucose mean value [Mass/vol ume] in Blood Estimated from glycated hemoglobinon 01-31-2021 Average glucose Estimated from glycated hemoglobin mass conc (Bld) 174 mg/dL [facility] Hematocrit [Volume Fraction] of Blood by Automated counton 01-31-2021 Hematocrit (Bld) [Volume fraction] 34.7 % 34.0-46.4 [facility] Hemoglobin A1c percentageon 01-31-2021 HbA1c (Bld) [Mass fraction] 7.7 % 4.3-5.6 [facility] Comment on above: Increased risk for d iabetes: 5.7 - 6.4diabetes: >6.4glycemic control for adults with diabetes: <7.0 Otheron 01-31-2021 GFR/1.73 sq M.predicted MDRD (S/P/Bld) [Vol rate/Area] 55 mL/min/{1.73_m2} [facility] Comment on above: GFR estimated refere nce range: According to KDOQI guidelines, <60 ml/min/1.73m2 is sufficient to diagnose a patient with chronic kidney disease. Nucleated RBC/100 WBC (Bld) [Ratio] 0.2 % 0-0.5 [facility] Creatinine Clearance (Chem N/A [facility] Protein [Mass/volume] in Ser um or Plasmaon 01-31-2021 Protein [Mass/Vol] 6.2 g/dL 6.1-7.9 [facility] Serum globulin measurement b y calculation (mass/volume)on 01-31-2021 Globulin (S) [Mass/Vol] 2.5 g/dL [facility] Serum or plasma alanine stubbs otransferase measurement without P-5'-P (enzymatic activion 01-31-2021 ALT No additional P-5'-P [Catalytic activity/Vol] 47 U/L 10-60 [facility] Serum or plasma albumin/glob ulin mass ratioon 01-31-2021 Albumin/Globulin [Mass ratio] 1.5 {ratio} [facility] Serum or plasma alkaline lorie sphatase measurement (enzymatic activity/volume)on 01-31-2021 ALP [Catalytic activity/Vol] 90 U/L 32-92 [facility] Serum or plasma aspartate am inotransferase measurement (enzymatic activity/volume)on 01-31-2021 AST [Catalytic activity/Vol] 69 U/L 10-42 [facility] Serum or plasma calcium emperatriz urement (mass/volume)on 01-31-2021 Calcium [Mass/Vol] 8.4 mg/dL 8.2-10.2 [facility] Serum or plasma chloride edvin surement (moles/volume)on 01-31-2021 Chloride [Moles/Vol] 100 mmol/L 95-[address] [facility] Serum or plasma creatinine m easurement with calculation of estimated glomerular filtron 01-31-2021 Creatinine [Mass/Vol] 1.17 mg/dL 0.44-1.[address] [facility] Serum or plasma glucose emperatriz urement (mass/volume)on 01-31-2021 Glucose [Mass/Vol] 157 mg/dL 70-100 [facility] Comment on above: ADA recommended refe rence rangeRandom Glucose Reference Range is dependent on time and content of last meal. Glucose of more than 200 mg/dL in a nonstressed, ambulatory subject supports the diagnosis of Diabetes Mellitus. Serum or plasma high density lipoprotein (HDL) cholesterol measurementon 01-31-2021 Cholesterol in HDL [Mass/Vol] 43 mg/dL 35-85 [facility] Comment on above: HDL CHOL ATP-III CLA SSIFICATION Cardiovascular RiskHDL > or equal to 60 mg/dL LOWHDL < 40 mg/dL HIGH Serum or plasma potassium me asurement (moles/volume)on 01-31-2021 Potassium [Moles/Vol] 3.5 mmol/L 3.5-5.[address] [facility] Serum or plasma sodium measu rement (moles/volume)on 01-31-2021 Sodium [Moles/Vol] 140 mmol/L 136-146 [facility] Serum or plasma total biliru bin measurement (mass/volume)on 01-31-2021 Bilirubin [Mass/Vol] 0.9 mg/dL 0.3-1.[address] [facility] Serum or plasma total carbon dioxide measurement (moles/volume)on 01-31-2021 CO2 [Moles/Vol] 26.2 mmol/L 22.0-30.0 [facility] Serum or plasma total choles terol/high density lipoprotein (HDL) cholesterol mass dulce maria 01-31-2021 Cholesterol.total/Cho lesterol in HDL [Mass ratio] 3.0 {ratio} [facility] Serum or plasma urea nitroge n measurement (mass/volume)on 01-31-2021 Urea nitrogen [Mass/Vol] 23 mg/dL 9- [facility] Specific gravity of Urine by Automated test stripon 01-31-2021 Specific gravity (U) [Rel density] 1.020 1.001-1.030 [facility] Squamous epithelial cells de tection in urine sediment by light microscopyon 01-31-2021 Epithelial cells.squamous LM Ql (Urine sed) 10-19 [HPF] [facility] Triglyceride [Mass/volume] i n Serum or Plasmaon 01-31-2021 Triglyceride [Mass/Vol] 114 mg/dL 35-149 [facility] Comment on above: TRIG ATP III CLASSIF ICATIONTRIG less than 150 mg/dL NormalTRIG 150-199 mg/dL Borderline highTRIG 200-500 mg/dL High TRIG greater than 500 mg/dL Very highStandard traceable to the Center for Disease Conrtrol and Prevention (CDC) test method. Urinalysison 01-31-2021 Hyaline casts LM Ql (Urine sed) 0-8 [LPF] [facility] Urine bacteria detection by automated methodon 01-31-2021 Bacteria Auto Ql (U) None seen None Seen [facility] Urine clarity by refractomet ry automatedon 01-31-2021 Clarity Refractometry automated (U) Clear Clear [facility] Urine glucose measurement by automated test strip (mass/volume)on 01-31-2021 Glucose Auto test strip (U) [Mass/Vol] Normal mg/dL Normal [facility] Urine hemoglobin detection b y automated test stripon 01-31-2021 Hemoglobin Auto test strip Ql (U) Negative Negative [facility] Urine ketones measurement by automated test strip (mass/volume)on 01-31-2021 Ketones (U) [Mass/Vol] Negative Negative [facility] Urine leukocyte esterase det ection by automated test stripon 01-31-2021 Leukocyte esterase Auto test strip Ql (U) 1+ Negative [facility] Urine microalbumin measureme nt with detection limit of 20 mg/L or less (mass/volume)on 01-31-2021 Albumin DL <= 20 mg/L (U) [Mass/Vol] 0.9 mg/dL 0.0-1.8 [facility] Urine microalbumin/creatinin e mass ratioon 01-31-2021 Albumin/Creatinine DL <= 20 mg/L (U) [Mass ratio] 7.0 mg/g 0.0-30.0 [facility] Comment on above: 30-300 mg/g indicate s an increased risk for diabetic nephropathy. Greater than 300 mg/g is consistent with clinical nephropathy. (Am. J. Kidney Disease 1995, 25:107) Urine nitrite detection by t est stripon 01-31-2021 Nitrite Ql (U) Negative Negative [facility] Urine pH measurement by auto mated test stripon 01-31-2021 pH (U) 5.0 [pH] 5.0-9.0 [facility] Urine protein measurement by automated test strip (mass/volume)on 01-31-2021 Protein (U) [Mass/Vol] Trace mg/dL Negative [facility] Urine total bilirubin detect ion by test stripon 01-31-2021 Bilirubin Ql (U) Negative Negative [facility] Urine urobilinogen measureme nt by automated test strip (mass/volume)on 01-31-2021 Urobilinogen (U) [Mass/Vol] Normal mg/dL Normal [facility] Vital Signs Date Time Vital Sign Value Performing Clinician Facility 04-25-2025 10:47-0400 Body height 158 cm Daksha Bridges PA-C Work Phone: [facility] 04-25-2025 10:47-0400 Body mass index (BMI) [Ratio] 40.42 kg/m2 Daksha HUDDLESTON-Kennedy Work Phone: [facility] 04-25-2025 10:47-0400 Body temperature 97.9 [degF] Daksha HUDDLESTON-Kennedy Work Phone: [facility] 04-25-2025 10:47-0400 Body weight 100.9 kg Daksha Cyrus PA-C Work Phone: [facility] 04-25-2025 10:47-0400 Diastolic blood pressure 78 mm[Hg] Daksha Cyrus PA-C Work Phone: [facility] 04-25-2025 10:47-0400 Heart rate 84 /min Daksha Cyrus PA-C Work Phone: [facility] 04-25-2025 10:47-0400 Respiratory rate 18 /min Daksha Cyrus PA-C Work Phone: [facility] 04-25-2025 10:47-0400 SaO2% (BldA) [Mass fraction] 94 % Daksha Cyrus PA-C Work Phone: [facility] 04-25-2025 10:47-0400 Systolic blood pressure 158 mm[Hg] Daksha Cyrus PA-C Work Phone: [facility] 03-30-2025 09:45-0400 Blood Pressure Location [employer] Emilyli [facility] 03-30-2025 09:45-0400 Diastolic blood pressure 73 mm[Hg] Mohamad Mouchli [facility] 03-30-2025 09:45-0400 Heart rate 67 /min Kyleed Momouchli [facility] 03-30-2025 09:45-0400 Systolic blood pressure 119 mm[Hg] Bretamad Momouchli [facility] 03-06-2025 09:47-0400 Body height 154.9 cm Tammy Herman PA Work Phone: [facility] 03-06-2025 09:47-0400 Body mass index (BMI) [Ratio] 41 kg/m2 Tammy Herman PA Work Phone: [facility] 03-06-2025 09:47-0400 Body weight 98.43 kg Tammy Lowe PA Work Phone: [facility] 03-06-2025 09:47-0400 Diastolic blood pressure 68 mm[Hg] Tammy Lowe PA Work Phone: [facility] 03-06-2025 09:47-0400 Systolic blood pressure 154 mm[Hg] Tammy Lowe PA Work Phone: [facility] 01-06-2025 14:14-0500 Body mass index (BMI) [Ratio] 38.7 kg/m2 Daksha Cyrus PA-C Work Phone: [facility] 01-06-2025 14:14-0500 Body temperature 97.81 [degF] Daksha Cyrus PA-C Work Phone: [facility] 01-06-2025 14:14-0500 Body weight 96.6 kg Daksha Cyrus PA-C Work Phone: [facility] 01-06-2025 14:14-0500 Diastolic blood pressure 72 mm[Hg] Daksha Cyrus PA-C Work Phone: [facility] 01-06-2025 14:14-0500 Heart rate 80 /min Daksha Cyrus PA-C Work Phone: [facility] 01-06-2025 14:14-0500 Respiratory rate 18 /min Daksha Cyrus PA-C Work Phone: [facility] 01-06-2025 14:14-0500 SaO2% (BldA) [Mass fraction] 97 % Daksha Cyrus PA-C Work Phone: [facility] 01-06-2025 14:14-0500 Systolic blood pressure 132 mm[Hg] Daksha Cyrus PA-C Work Phone: [facility] 01-03-2025 09:44-0500 Body height 154.9 cm Tammy Lowe PA Work Phone: [facility] 01-03-2025 09:44-0500 Body mass index (BMI) [Ratio] 40.06 kg/m2 Tammy Lowe PA Work Phone: [facility] 01-03-2025 09:44-0500 Body weight 96.16 kg Tammy Lowe PA Work Phone: [facility] 01-03-2025 09:44-0500 Diastolic blood pressure 62 mm[Hg] Tammy Lowe PA Work Phone: [facility] 01-03-2025 09:44-0500 Systolic blood pressure 138 mm[Hg] Tammy Lowe PA Work Phone: [facility] 12-27-2024 14:16-0500 Body height 157.48 cm Vinay Bunting DO Work Phone: [facility] 12-27-2024 14:16-0500 Body mass index (BMI) [Ratio] 38.9 kg/m2 Vinay Bunting DO Work Phone: [facility] 12-27-2024 14:16-0500 Body temperature 96.5 [degF] Vinay Bunting DO Work Phone: [facility] 12-27-2024 14:16-0500 Body weight 96.67 kg Vinay Bunting DO Work Phone: [facility] 12-27-2024 14:16-0500 Diastolic blood pressure 75 mm[Hg] Vinay Bunting DO Work Phone: [facility] 12-27-2024 14:16-0500 Heart rate 80 /min Vinay Bunting DO Work Phone: [facility] 12-27-2024 14:16-0500 Respiratory rate 18 /min Vinay Bunting DO Work Phone: [facility] 12-27-2024 14:16-0500 SaO2% (BldA) [Mass fraction] 98 % Vinay Bunting DO Work Phone: [facility] 12-27-2024 14:16-0500 Systolic blood pressure 120 mm[Hg] Vinay Bunting DO Work Phone: [facility] 11-14-2024 13:10-0500 Body height 157.48 cm Vinay Bunting DO Work Phone: [facility] 11-14-2024 13:10-0500 Body mass index (BMI) [Ratio] 38.4 kg/m2 Vinay Bunting DO Work Phone: [facility] 11-14-2024 13:10-0500 Body weight 95.25 kg Vinay Bunting DO Work Phone: [facility] 11-14-2024 13:10-0500 Diastolic blood pressure 68 mm[Hg] Vinay Bunting DO Work Phone: [facility] 11-14-2024 13:10-0500 Heart rate 85 /min Vinay Bunting DO Work Phone: [facility] 11-14-2024 13:10-0500 SaO2% (BldA) [Mass fraction] 95 % Vinay Bunting DO Work Phone: [facility] 11-14-2024 13:10-0500 Systolic blood pressure 133 mm[Hg] Vinay Bunting DO Work Phone: [facility] 10-07-2024 14:42-0500 Body height 158 cm Daksha Cyrus PA-C Work Phone: [facility] 10-07-2024 14:42-0500 Body mass index (BMI) [Ratio] 38.74 kg/m2 Daksha Cyrus PA-C Work Phone: [facility] 10-07-2024 14:42-0500 Body temperature 97.11 [degF] Daksha Cyrus PA-C Work Phone: [facility] 10-07-2024 14:42-0500 Body weight 96.7 kg Daksha Cyrus PA-C Work Phone: [facility] 10-07-2024 14:42-0500 Diastolic blood pressure 75 mm[Hg] Daksha Cyrus PA-C Work Phone: [facility] 10-07-2024 14:42-0500 Heart rate 81 /min Daksha Cyrus PA-C Work Phone: [facility] 10-07-2024 14:42-0500 Respiratory rate 18 /min Daksha Cyrus PA-C Work Phone: [facility] 10-07-2024 14:42-0500 SaO2% (BldA) [Mass fraction] 95 % Daksha Cyrus PA-C Work Phone: [facility] 10-07-2024 14:42-0500 Systolic blood pressure 144 mm[Hg] Daksha Cyrus PA-C Work Phone: [facility] 09-29-2024 09:18-0500 Blood Pressure Location Verónica Ugarte [facility] 09-29-2024 09:18-0500 Diastolic blood pressure 77 mm[Hg] Verónica Ugarte [facility] 09-29-2024 09:18-0500 Heart rate 74 /min Verónica Ugarte [facility] 09-29-2024 09:18-0500 Systolic blood pressure 129 mm[Hg] Verónica Ugarte [facility] 08-16-2024 08:51-0400 Body height 154.9 cm Queta Prieto FLATWORK SUPERVISOR Work Phone: [facility] 08-16-2024 08:51-0400 Body mass index (BMI) [Ratio] 39.49 kg/m2 Queta Prieto FLATWORK SUPERVISOR Work Phone: [facility] 08-16-2024 08:51-0400 Body weight 94.8 kg Queta Prieto FLATWORK SUPERVISOR Work Phone: [facility] 08-16-2024 08:51-0400 Diastolic blood pressure 72 mm[Hg] Queta Prieto FLATWORK SUPERVISOR Work Phone: [facility] 08-16-2024 08:51-0400 Heart rate 77 /min Queta Prieto FLATWORK SUPERVISOR Work Phone: [facility] 08-16-2024 08:51-0400 Systolic blood pressure 153 mm[Hg] Queta Prieto FLATWORK SUPERVISOR Work Phone: [facility] 07-22-2024 12:08-0400 Body temperature 97.5 [degF] DO Vinay Bunting Work Phone: [facility] 07-22-2024 12:08-0400 Diastolic blood pressure 74 mm[Hg] DO Vinay Bunting Work Phone: [facility] 07-22-2024 12:08-0400 Heart rate 64 /min DO Vinay Bunting Work Phone: [facility] 07-22-2024 12:08-0400 Respiratory rate 18 /min DO Vinay Bunting Work Phone: [facility] 07-22-2024 12:08-0400 SaO2% (BldA) [Mass fraction] 98 % DO Vinay Bunting Work Phone: [facility] 07-22-2024 12:08-0400 Systolic blood pressure 119 mm[Hg] DO Vinay Bunting Work Phone: [facility] 07-22-2024 05:18-0400 Body weight 95.2 kg DO Vinay Bunting Work Phone: [facility] 07-21-2024 15:32-0400 Body height 162.56 cm DO Vinay Bunting Work Phone: [facility] 07-21-2024 14:00-0400 Diastolic blood pressure 84 mm[Hg] DO Vinay Bunting Work Phone: [facility] 07-21-2024 14:00-0400 Heart rate 76 /min DO Vinay Bunting Work Phone: [facility] 07-21-2024 14:00-0400 Respiratory rate 18 /min DO Vinay Bunting Work Phone: [facility] 07-21-2024 14:00-0400 SaO2% (BldA) [Mass fraction] 98 % DO Vinay Bunting Work Phone: [facility] 07-21-2024 14:00-0400 Systolic blood pressure 188 mm[Hg] DO Vinay Bunting Work Phone: [facility] 07-21-2024 12:53-0400 Body temperature 97.7 [degF] DO Vinay Bunting Work Phone: [facility] 07-21-2024 09:57-0400 Body height 162.56 cm DO Vinay Bunting Work Phone: [facility] 07-21-2024 09:57-0400 Body weight 94.34 kg DO Vinay Bunting Work Phone: [facility] 07-15-2024 14:21-0400 Body mass index (BMI) [Ratio] 37.85 kg/m2 Daksha Cyrus PA-C Work Phone: [facility] 07-15-2024 14:21-0400 Body temperature 97.39 [degF] Daksha Cyrus PA-C Work Phone: [facility] 07-15-2024 14:21-0400 Body weight 94.5 kg Daksha Cyrus PA-C Work Phone: [facility] 07-15-2024 14:21-0400 Diastolic blood pressure 68 mm[Hg] Daksha Cyrus PA-C Work Phone: [facility] 07-15-2024 14:21-0400 Heart rate 81 /min Daksha Cyrus PA-C Work Phone: [facility] 07-15-2024 14:21-0400 Respiratory rate 18 /min Daksha Kanger PA-C Work Phone: [facility] 07-15-2024 14:21-0400 SaO2% (BldA) [Mass fraction] 96 % Daksha Kanger PA-C Work Phone: [facility] 07-15-2024 14:21-0400 Systolic blood pressure 108 mm[Hg] Daksha Kanger PA-C Work Phone: [facility] 07-04-2024 15:30-0400 Body height 162.56 cm DO Vinay Bunting Work Phone: [facility] 07-04-2024 15:30-0400 Body mass index (BMI) [Ratio] 36.2 kg/m2 DO Vinay Bunting Work Phone: [facility] 07-04-2024 15:30-0400 Body temperature 97 [degF] DO Vinay Bunting Work Phone: [facility] 07-04-2024 15:30-0400 Body weight 95.76 kg DO Vinay Bunting Work Phone: [facility] 07-04-2024 15:30-0400 Diastolic blood pressure 69 mm[Hg] DO Vinay Bunting Work Phone: [facility] 07-04-2024 15:30-0400 Heart rate 83 /min DO Vinay Bunting Work Phone: [facility] 07-04-2024 15:30-0400 Respiratory rate 18 /min DO Vinay Bunting Work Phone: [facility] 07-04-2024 15:30-0400 SaO2% (BldA) [Mass fraction] 97 % DO Vinay Bunting Work Phone: [facility] 07-04-2024 15:30-0400 Systolic blood pressure 110 mm[Hg] DO Vinay Bunting Work Phone: [facility] 05-11-2024 11:41-0400 Body height 162.56 cm DO Vinay Bunting Work Phone: [facility] 05-11-2024 11:41-0400 Body mass index (BMI) [Ratio] 35.7 kg/m2 DO Vinay Bunting Work Phone: [facility] 05-11-2024 11:41-0400 Body temperature 97.4 [degF] DO Vinay Bunting Work Phone: [facility] 05-11-2024 11:41-0400 Body weight 94.4 kg DO Vinay Bunting Work Phone: [facility] 05-11-2024 11:41-0400 Diastolic blood pressure 74 mm[Hg] DO Vinay Bunting Work Phone: [facility] 05-11-2024 11:41-0400 Heart rate 88 /min DO Vinay Bunting Work Phone: [facility] 05-11-2024 11:41-0400 Respiratory rate 16 /min DO Vinay Bunting Work Phone: [facility] 05-11-2024 11:41-0400 SaO2% (BldA) [Mass fraction] 96 % DO Vinay Bunting Work Phone: [facility] 05-11-2024 11:41-0400 Systolic blood pressure 118 mm[Hg] DO Vinay Bunting Work Phone: [facility] 04-15-2024 14:07-0400 Body height 158 cm Shana Flores APRN.GRINDER SET UP OPERATOR THREAD TOOL Work Phone: [facility] 04-15-2024 14:07-0400 Body mass index (BMI) [Ratio] 39.1 kg/m2 Shana Flores ASSURANCE SOURCING MANAGER.GRINDER SET UP OPERATOR THREAD TOOL Work Phone: [facility] 04-15-2024 14:07-0400 Body temperature 97 [degF] Shana Gross ASSURANCE SOURCING MANAGER.GRINDER SET UP OPERATOR THREAD TOOL Work Phone: [facility] 04-15-2024 14:07-0400 Body weight 97.6 kg Shana Gross ASSURANCE SOURCING MANAGER.GRINDER SET UP OPERATOR THREAD TOOL Work Phone: [facility] 04-15-2024 14:07-0400 Diastolic blood pressure 73 mm[Hg] Shana Gross ASSURANCE SOURCING MANAGER.GRINDER SET UP OPERATOR THREAD TOOL Work Phone: [facility] 04-15-2024 14:07-0400 Heart rate 89 /min Shana Gross ASSURANCE SOURCING MANAGER.GRINDER SET UP OPERATOR THREAD TOOL Work Phone: [facility] 04-15-2024 14:07-0400 Respiratory rate 16 /min Shana Gross ASSURANCE SOURCING MANAGER.GRINDER SET UP OPERATOR THREAD TOOL Work Phone: [facility] 04-15-2024 14:07-0400 SaO2% (BldA) [Mass fraction] 95 % Shanarichard Flores ASSURANCE SOURCING MANAGER.GRINDER SET UP OPERATOR THREAD TOOL Work Phone: [facility] 04-15-2024 14:07-0400 Systolic blood pressure 135 mm[Hg] Shana Gross ASSURANCE SOURCING MANAGER.GRINDER SET UP OPERATOR THREAD TOOL Work Phone: [facility] 03-28-2024 11:48-0400 Blood Pressure Location Verónica Ugarte [facility] 03-28-2024 11:48-0400 Diastolic blood pressure 75 mm[Hg] Verónica Ugarte [facility] 03-28-2024 11:48-0400 Heart rate 80 /min Verónica Uagrte [facility] 03-28-2024 11:48-0400 Respiratory rate 16 /min Verónica Ugarte [facility] 03-28-2024 11:48-0400 Systolic blood pressure 126 mm[Hg] Verónica Ugarte [facility] 02-25-2024 10:03-0400 Body temperature 97.7 [degF] Chair Jewell Work Phone: [facility] 02-25-2024 10:03-0400 Diastolic blood pressure 53 mm[Hg] Chair Jewell Work Phone: [facility] 02-25-2024 10:03-0400 Heart rate 82 /min Chair Jarred Work Phone: [facility] 02-25-2024 10:03-0400 Respiratory rate 16 /min Chair Jarred Work Phone: [facility] 02-25-2024 10:03-0400 SaO2% (BldA) [Mass fraction] 97 % Chair Jarred Work Phone: [facility] 02-25-2024 10:03-0400 Systolic blood pressure 113 mm[Hg] Chair Jarred Work Phone: [facility] 01-29-2024 10:17-0400 Body height 158 cm Daksha Cyrus PA-C Work Phone: [facility] 01-29-2024 10:17-0400 Body temperature 98.2 [degF] Daksha Cyrus PA-C Work Phone: [facility] 01-29-2024 10:17-0400 Body weight 99 kg Daksha Cyrus PA-C Work Phone: [facility] 01-29-2024 10:17-0400 Diastolic blood pressure 66 mm[Hg] Daksha Cyrus PA-C Work Phone: [facility] 01-29-2024 10:17-0400 Heart rate 93 /min Daksha Cyrus PA-C Work Phone: [facility] 01-29-2024 10:17-0400 Respiratory rate 16 /min Daksha Cyrus PA-C Work Phone: [facility] 01-29-2024 10:17-0400 SaO2% (BldA) [Mass fraction] 95 % Daksha Cyrus PA-C Work Phone: [facility] 01-29-2024 10:17-0400 Systolic blood pressure 136 mm[Hg] Daksha Bridges PA-C Work Phone: [facility] 12-07-2023 09:08-0500 Blood Pressure Location Nisa Shepherd [facility] 12-07-2023 09:08-0500 Body temperature 96.8 [degF] Nisa Shepherd [facility] 12-07-2023 09:08-0500 Diastolic blood pressure 74 mm[Hg] Nisa Shepherd [facility] 12-07-2023 09:08-0500 Heart rate 92 /min Nisa Shepherd [facility] 12-07-2023 09:08-0500 Systolic blood pressure 122 mm[Hg] Nisa Shepherd [facility] 10-20-2023 10:30-0500 Body height 162.56 cm Anh Delcid Other [place] Other 10-20-2023 10:30-0500 Body mass index (BMI) [Ratio] 36.04 kg/m2 Anh Delcid Other [facility] Other 10-20-2023 10:30-0500 Body weight 95.26 kg Anh Delcid Other [facility] Other 10-20-2023 10:30-0500 Diastolic blood pressure 70 mm[Hg] Anh Delcid Other [facility] Other 10-20-2023 10:30-0500 SaO2% (BldA) [Mass fraction] 95 % Anh Delcid Other [facility] Other 10-20-2023 10:30-0500 Systolic blood pressure 123 mm[Hg] Anh Delcid Other [place] [facility] Other 07-24-2023 13:56-0400 Body height 158 cm Daksha Cyrus PA-C Work Phone: [facility] 07-24-2023 13:56-0400 Body temperature 97.7 [degF] Daksha Cyrus PA-C Work Phone: [facility] 07-24-2023 13:56-0400 Body weight 92.63 kg Daksha Cyrus PA-C Work Phone: [facility] 07-24-2023 13:56-0400 Diastolic blood pressure 54 mm[Hg] Daksha Cyrus PA-C Work Phone: [facility] 07-24-2023 13:56-0400 Heart rate 79 /min Daksha Cyrus PA-C Work Phone: [facility] 07-24-2023 13:56-0400 Respiratory rate 16 /min Daksha Cyrus PA-C Work Phone: [facility] 07-24-2023 13:56-0400 SaO2% (BldA) [Mass fraction] 95 % Daksha Cyrus PA-C Work Phone: [facility] 07-24-2023 13:56-0400 Systolic blood pressure 132 mm[Hg] Daksha Cyrus PA-C Work Phone: [facility] 05-01-2023 13:42-0400 Body height 158 cm Daksha Cyrus PA-C Work Phone: [facility] 05-01-2023 13:42-0400 Body temperature 97.59 [degF] Daksha Cyrus PA-C Work Phone: [facility] 05-01-2023 13:42-0400 Body weight 93.62 kg Daksha Cyrus PA-C Work Phone: [facility] 05-01-2023 13:42-0400 Diastolic blood pressure 49 mm[Hg] Daksha Cyrus PA-C Work Phone: [facility] 05-01-2023 13:42-0400 Heart rate 82 /min Daksha Cyrus PA-C Work Phone: [facility] 05-01-2023 13:42-0400 Respiratory rate 18 /min Daksha Cyrus PA-C Work Phone: [facility] 05-01-2023 13:42-0400 SaO2% (BldA) [Mass fraction] 95 % Daksha Cyrus PA-C Work Phone: [facility] 05-01-2023 13:42-0400 Systolic blood pressure 131 mm[Hg] Daksha Cyrus PA-C Work Phone: [facility] 04-15-2023 09:26-0400 Blood Pressure Location Gomez SALAM [facility] 04-15-2023 09:26-0400 Diastolic blood pressure 75 mm[Hg] Gomez SALAM [facility] 04-15-2023 09:26-0400 Heart rate 82 /min Gomez SALAM [facility] 04-15-2023 09:26-0400 Respiratory rate 16 /min Gomez SALAM [facility] 04-15-2023 09:26-0400 SaO2% (BldA) [Mass fraction] 96 % Gomez SALAM [facility] 04-15-2023 09:26-0400 Systolic blood pressure 127 mm[Hg] Gomez SALAM [facility] 03-13-2023 10:00-0400 Diastolic blood pressure 72 mm[Hg] DO Vinay Bunting Work Phone: [facility] 03-13-2023 10:00-0400 Heart rate 76 /min DO Vinay Bunting Work Phone: [facility] 03-13-2023 10:00-0400 Respiratory rate 16 /min DO Vinay Bunting Work Phone: [facility] 03-13-2023 10:00-0400 SaO2% (BldA) [Mass fraction] 96 % DO Vinay Bunting Work Phone: [facility] 03-13-2023 10:00-0400 Systolic blood pressure 126 mm[Hg] DO Vinay Bunting Work Phone: [facility] 03-13-2023 08:00-0400 Body temperature 97.7 [degF] DO Vinay Bunting Work Phone: [facility] 03-13-2023 05:27-0400 Body weight 96.8 kg DO Vinay Bunting Work Phone: [facility] 03-12-2023 12:20-0400 Body height 157.48 cm DO Vinay Bunting Work Phone: [facility] 02-06-2023 14:08-0400 Body height 158 cm Daksha Cyrus PA-C Work Phone: [facility] 02-06-2023 14:08-0400 Body temperature 97.2 [degF] Daksha Cyrus PA-C Work Phone: [facility] 02-06-2023 14:08-0400 Body weight 97.8 kg Daksha Cyrus PA-C Work Phone: [facility] 02-06-2023 14:08-0400 Diastolic blood pressure 61 mm[Hg] Daksha Cyrus PA-C Work Phone: [facility] 02-06-2023 14:08-0400 Heart rate 84 /min Daksha Cyrus PA-C Work Phone: [facility] 02-06-2023 14:08-0400 Respiratory rate 16 /min Daksha Kanger PA-C Work Phone: [facility] 02-06-2023 14:08-0400 SaO2% (BldA) [Mass fraction] 96 % Daksha Cyrus PA-C Work Phone: [facility] 02-06-2023 14:08-0400 Systolic blood pressure 137 mm[Hg] Daksha Kanger PA-C Work Phone: [facility] 12-29-2022 16:28-0500 Diastolic blood pressure 67 mm[Hg] DO Vinay Bunting Work Phone: [facility] 12-29-2022 16:28-0500 Heart rate 87 /min DO Vinay Bunting Work Phone: [facility] 12-29-2022 16:28-0500 Respiratory rate 16 /min DO Vinay Bunting Work Phone: [facility] 12-29-2022 16:28-0500 SaO2% (BldA) [Mass fraction] 96 % DO Vinay Bunting Work Phone: [facility] 12-29-2022 16:28-0500 Systolic blood pressure 156 mm[Hg] DO Vinay Bunting Work Phone: [facility] 12-29-2022 13:16-0500 Body height 162.56 cm DO Vinay Bunting Work Phone: [facility] 12-29-2022 13:16-0500 Body temperature 97.5 [degF] DO Vinay Bunting Work Phone: [facility] 12-29-2022 13:16-0500 Body weight 97.06 kg DO Vinay Bunting Work Phone: [facility] 12-24-2022 10:10-0500 Blood Pressure Location Nisa Shepherd [facility] 12-24-2022 10:10-0500 Body temperature 96.8 [degF] Nisa Shepherd [facility] 12-24-2022 10:10-0500 Diastolic blood pressure 75 mm[Hg] Nisa Shepherd [facility] 12-24-2022 10:10-0500 Heart rate 77 /min Nisa Shepherd [facility] 12-24-2022 10:10-0500 Systolic blood pressure 132 mm[Hg] Nisa Shepherd [facility] 12-12-2022 14:23-0500 Body height 158 cm Daksha Cyrus PA-C Work Phone: [facility] 12-12-2022 14:23-0500 Body temperature 97.39 [degF] Daksha Cyrus PA-C Work Phone: [facility] 12-12-2022 14:23-0500 Body weight 97.98 kg Daksha Cyrus PA-C Work Phone: [facility] 12-12-2022 14:23-0500 Diastolic blood pressure 75 mm[Hg] Daksha Cyrus PA-C Work Phone: [facility] 12-12-2022 14:23-0500 Heart rate 69 /min Daksha Cyrus PA-C Work Phone: [facility] 12-12-2022 14:23-0500 Respiratory rate 16 /min Daksha Cyrus PA-C Work Phone: [facility] 12-12-2022 14:23-0500 SaO2% (BldA) [Mass fraction] 96 % Daksha Cyrus PA-C Work Phone: [facility] 12-12-2022 14:23-0500 Systolic blood pressure 170 mm[Hg] Daksha Cyrus PA-C Work Phone: [facility] 10-30-2022 13:19-0500 Body temperature 98.71 [degF] Chair Jarred Work Phone: [facility] 10-30-2022 13:19-0500 Diastolic blood pressure 55 mm[Hg] Chair Jewell Work Phone: [facility] 10-30-2022 13:19-0500 Heart rate 82 /min Chair Jewell Work Phone: [facility] 10-30-2022 13:19-0500 Respiratory rate 18 /min Chair Jewell Work Phone: [facility] 10-30-2022 13:19-0500 SaO2% (BldA) [Mass fraction] 95 % Chair Jewell Work Phone: [facility] 10-30-2022 13:19-0500 Systolic blood pressure 127 mm[Hg] Chair Jewell Work Phone: [facility] 10-23-2022 13:45-0500 Diastolic blood pressure 47 mm[Hg] Chair Jewell Work Phone: [facility] 10-23-2022 13:45-0500 Heart rate 78 /min Chair Jarred Work Phone: [facility] 10-23-2022 13:45-0500 Respiratory rate 16 /min Chair Jarred Work Phone: [facility] 10-23-2022 13:45-0500 SaO2% (BldA) [Mass fraction] 99 % Chair Jewell Work Phone: [facility] 10-23-2022 13:45-0500 Systolic blood pressure 128 mm[Hg] Chair Jarred Work Phone: [facility] 10-16-2022 10:01-0500 Body height 158 cm Daksha Kanger PA-C Work Phone: [facility] 10-16-2022 10:01-0500 Body temperature 97.9 [degF] Daksha Kanger PA-C Work Phone: [facility] 10-16-2022 10:01-0500 Body weight 97.07 kg Daksha Cyrus PA-C Work Phone: [facility] 10-16-2022 10:01-0500 Diastolic blood pressure 62 mm[Hg] Daksha Cyrus PA-C Work Phone: [facility] 10-16-2022 10:01-0500 Heart rate 92 /min Daksha Cyrus PA-C Work Phone: [facility] 10-16-2022 10:01-0500 Respiratory rate 16 /min Daksha Cyrus PA-C Work Phone: [facility] 10-16-2022 10:01-0500 SaO2% (BldA) [Mass fraction] 98 % Daksha Cyrus PA-C Work Phone: [facility] 10-16-2022 10:01-0500 Systolic blood pressure 149 mm[Hg] Daksha Cyrus PA-C Work Phone: [facility] 10-14-2022 11:30-0500 Body height 162.56 cm Anh Delcid Other [facility] Other 10-14-2022 11:30-0500 Body mass index (BMI) [Ratio] 36.39 kg/m2 Anh Delcid Other [facility] Other 10-14-2022 11:30-0500 Body temperature 97.8 [degF] Anh Delcid Other [facility] Other 10-14-2022 11:30-0500 Body weight 96.16 kg Anh Delcid Other [facility] Other 10-14-2022 11:30-0500 Diastolic blood pressure 74 mm[Hg] Anh Delcid Other [facility] Other 10-14-2022 11:30-0500 SaO2% (BldA) [Mass fraction] 97 % Anh Delcid Other [facility] Other 10-14-2022 11:30-0500 Systolic blood pressure 118 mm[Hg] Anh Delcid Other [facility] Other 10-01-2022 10:51-0500 Body height 158 cm Henry Walker MD Work Phone: [facility] 10-01-2022 10:51-0500 Body temperature 96.91 [degF] Henry Walker MD Work Phone: [facility] 10-01-2022 10:51-0500 Body weight 98.07 kg Henry Walker MD Work Phone: [facility] 10-01-2022 10:51-0500 Diastolic blood pressure 66 mm[Hg] Henry Walker MD Work Phone: [facility] 10-01-2022 10:51-0500 Heart rate 92 /min Henry Walker MD Work Phone: [facility] 10-01-2022 10:51-0500 Respiratory rate 18 /min Henry Walker MD Work Phone: [facility] 10-01-2022 10:51-0500 SaO2% (BldA) [Mass fraction] 96 % Henry Walker MD Work Phone: [facility] 10-01-2022 10:51-0500 Systolic blood pressure 153 mm[Hg] Henry Walker MD Work Phone: [facility] 09-02-2022 10:24-0400 Diastolic blood pressure 71 mm[Hg] Jose Carlos Mattson [facility] 09-02-2022 10:24-0400 Mean blood pressure 96 mm[Hg] Jose Carlos Mattson [facility] 09-02-2022 10:24-0400 Systolic blood pressure 145 mm[Hg] Jose Carlos Mattson [facility] 09-02-2022 10:10-0400 Blood Pressure Location Jose Carlos Mattson [facility] 09-02-2022 10:10-0400 Diastolic blood pressure 74 mm[Hg] Jose Carlos Mattson [facility] 09-02-2022 10:10-0400 Heart rate 90 /min Jose Carlos Mattson [facility] 09-02-2022 10:10-0400 Respiratory rate 18 /min Jose Carlos Mattson [facility] 09-02-2022 10:10-0400 SaO2% (BldA) [Mass fraction] 99 % Jose Carlos Mattson [facility] 09-02-2022 10:10-0400 Systolic blood pressure 145 mm[Hg] Jose Carlos Mattson [facility] 07-22-2022 20:31-0400 Diastolic blood pressure 62 mm[Hg] DO Vinay Bunting Work Phone: [facility] 07-22-2022 20:31-0400 Heart rate 73 /min DO Vinay Bunting Work Phone: [facility] 07-22-2022 20:31-0400 Respiratory rate 16 /min DO Vinay Bunting Work Phone: [facility] 07-22-2022 20:31-0400 SaO2% (BldA) [Mass fraction] 99 % DO Vinay Bunting Work Phone: [facility] 07-22-2022 20:31-0400 Systolic blood pressure 132 mm[Hg] DO Vinay Bunting Work Phone: [facility] 07-22-2022 15:52-0400 Body height 162.56 cm DO Vinay Bunting Work Phone: [facility] 07-22-2022 15:52-0400 Body temperature 98 [degF] DO Vinay Bunting Work Phone: [facility] 07-22-2022 15:52-0400 Body weight 98.06 kg DO Vinay Bunting Work Phone: [facility] 06-12-2022 09:33-0400 Blood Pressure Location Gomez SALAM [facility] 06-12-2022 09:33-0400 Diastolic blood pressure 77 mm[Hg] Gomez SALAM [facility] 06-12-2022 09:33-0400 Heart rate 87 /min Gomez SALAM [facility] 06-12-2022 09:33-0400 Respiratory rate 14 /min Gomez SALAM [facility] 06-12-2022 09:33-0400 SaO2% (BldA) [Mass fraction] 97 % Gomez SALAM [facility] 06-12-2022 09:33-0400 Systolic blood pressure 163 mm[Hg] Gomez SALAM [facility] 06-12-2022 09:20-0400 Blood Pressure Location Gomez SALAM [facility] 06-12-2022 09:20-0400 Diastolic blood pressure 70 mm[Hg] Gomez SALAM [facility] 06-12-2022 09:20-0400 Heart rate 92 /min Gomez SALAM [facility] 06-12-2022 09:20-0400 Respiratory rate 29 /min Gomez SALAM [facility] 06-12-2022 09:20-0400 SaO2% (BldA) [Mass fraction] 97 % Gomez SALAM [facility] 06-12-2022 09:20-0400 Systolic blood pressure 127 mm[Hg] Gomez SALAM [facility] 06-12-2022 09:15-0400 Blood Pressure Location Gomez SALAM [facility] 06-12-2022 09:15-0400 Diastolic blood pressure 73 mm[Hg] Gomez SALAM [facility] 06-12-2022 09:15-0400 Heart rate 92 /min Gomez SALAM [facility] 06-12-2022 09:15-0400 Respiratory rate 10 /min Gomez SALAM [facility] 06-12-2022 09:15-0400 SaO2% (BldA) [Mass fraction] 91 % Gomez SALAM [facility] 06-12-2022 09:15-0400 Systolic blood pressure 129 mm[Hg] Gomez SALAM [facility] 06-12-2022 09:08-0400 Body temperature 97.34 [degF] Gomez SALAM [facility] 06-12-2022 07:48-0400 Body temperature 96.8 [degF] Gomez SALAM [facility] 04-23-2022 09:40-0400 Diastolic blood pressure 76 mm[Hg] Gomez SALAM [facility] 04-23-2022 09:40-0400 Heart rate 78 /min Gomez SALAM [facility] 04-23-2022 09:40-0400 Systolic blood pressure 138 mm[Hg] Jason RUSSELL [facility] Encounters Encounter Date Encounter Type Care Provider Facility Start: 07-11-2025 ambulatory Verónica Barrera lity:[facility] Start: 06-26-2025 End: 06-26-2025 Patient encounter procedure Vinay R Bunting DO -[facility] Work Phone: Start: 06-26-2025 End: 06-26-2025 ambulatory Vinay Bunting DO Work Phone: [facility] Work Phone: Start: 06-08-2025 End: 06-08-2025 Admission to same day surgery center Verónica Ugarte MD -[facility] Work Phone: Start: 06-08-2025 End: 06-08-2025 ambulatory Vinay Bunting DO Work Phone: [facility] Work Phone: Start: 06-08-2025 Non-patient / Non-visit Bradley Jimenez -[facility] Work Phone: Start: 06-07-2025 End: 06-07-2025 Patient encounter procedure [facility] - Jenny Watson [facility] CI AUD Comment on above: Hearing loss, mixed, bilateral (Primary Dx) Start: 06-07-2025 End: 06-07-2025 ambulatory TAMMY HERMAN Not Available Start: 04-25-2025 End: 04-25-2025 Office outpatient visit 15 minutes Daksha Bridges PA-C Work Phone: Hematology/Oncology Comment on above: Anemia, unspecified type (Primary Dx); Iron deficiency anemia, unspecified iron deficiency anemia type; Stage 3b chronic kidney disease (HCC); Anemia in stage 3a chronic kidney disease (HCC) Start: 04-25-2025 End: 04-25-2025 ambulatory DAKSHA BRIDGES Facility:[facility] Start: 04-18-2025 End: 04-18-2025 ambulatory DAKSHA BRIDGES Facility:[facility] Start: 04-11-2025 End: 06-11-2025 Follow-up encounter Daksha Bridges JANELLC Work Phone: Hematology/Oncology Comment on above: labs/follow up Start: 04-07-2025 End: 04-07-2025 ambulatory DAKSHA BRIDGES Facility:[facility] Start: 03-30-2025 End: 03-30-2025 ambulatory Verónica Ugarte Facility:[facility] Start: 03-30-2025 End: 03-30-2025 Patient encounter procedure Verónica Ugarte [facility] Start: 03-27-2025 End: 03-27-2025 ambulatory Verónica Ugarte Facility:[facility] Start: 03-27-2025 End: 03-27-2025 Patient encounter procedure Verónica Ugarte [facility] Start: 03-20-2025 End: 03-20-2025 ambulatory Tessy Bruner MD Facility:[facility] Start: 03-06-2025 End: 03-06-2025 Bamboo flowsheet Tammy HUDDLESTON Work Phone: [facility] Start: 03-06-2025 End: 03-06-2025 Bamboo flowsheet Tammy Neffe PA Work Phone: [facility] Start: 03-06-2025 End: 03-06-2025 Office outpatient visit 25 minutes Tammy HUDDLESTON Work Phone: [facility] Comment on above: Transient ischemic a ttack (Primary Dx); Polyneuropathy; Syncope and collapse; Carpal tunnel syndrome, bilateral upper limbs Start: 03-06-2025 End: 03-06-2025 ambulatory TAMMY LOWE Not Available Start: 02-20-2025 End: 02-20-2025 ambulatory Tessy Bruner MD Facility: [facility] Start: 02-08-2025 End: 02-08-2025 Patient encounter procedure Vinay Bunting DO Work Phone: [facility] [address] [facility] Work Phone: Start: 02-08-2025 End: 02-08-2025 ambulatory Vinay Bunting DO Work Phone: [facility] Work Phone: Start: 01-09-2025 End: 01-09-2025 Follow-up encounter Daksha MACIELC Work Phone: Hematology/Oncology Start: 01-09-2025 End: 01-09-2025 ambulatory Tessy Bruner MD Facility: [facility] Start: 01-06-2025 End: 01-06-2025 Office outpatient visit 15 minutes Daksha Bridges PA-C Work Phone: Hematology/Oncology Comment on above: Iron deficiency anem ia, unspecified iron deficiency anemia type (Primary Dx); Thrombocytopenia (HCC); Stage 3b chronic kidney disease (HCC) Start: 01-06-2025 End: 01-06-2025 ambulatory DAKSHA BRIDGES Facility:[facility] Start: 01-03-2025 End: 01-03-2025 Bamboo flowsheet Tammy Lowe PA Work Phone: [facility] Start: 01-03-2025 End: 01-03-2025 Bamboo flowsheet Tammy Lowe PA Work Phone: [facility] Start: 01-03-2025 End: 01-03-2025 Office outpatient visit 15 minutes Tammy Lowe PA Work Phone: [facility] Comment on above: Transient ischemic a ttack (Primary Dx); Polyneuropathy; Carpal tunnel syndrome, bilateral upper limbs Start: 01-03-2025 End: 01-03-2025 ambulatory TAMMY HERMAN Not Available Start: 01-02-2025 End: 01-02-2025 Telephone encounter Daksha Bridges PA-C Work Phone: Hematology/Oncology Comment on above: Lab Orders Start: 12-28-2024 End: 12-28-2024 Patient encounter procedure Vinay Bunting DO Work Phone: [facility] Work Phone: Start: 12-28-2024 End: 12-28-2024 ambulatory Vinay Bunting DO Work Phone: [facility] Work Phone: Start: 12-27-2024 End: 12-27-2024 ambulatory Vinay Bunting DO Work Phone: [facility] Work Phone: Start: 12-27-2024 End: 12-27-2024 Patient encounter procedure Vinay Bunting DO Work Phone: [facility] Work Phone: Start: 12-15-2024 End: 12-15-2024 Patient encounter procedure Vinay Bunting DO Work Phone: [facility]-XRay [facility] Work Phone: Start: 12-15-2024 End: 12-15-2024 ambulatory Vinay Bunting DO Work Phone: [facility] Work Phone: Start: 11-14-2024 End: 11-14-2024 Patient encounter procedure Vinay Bunting DO Work Phone: [facility] Work Phone: Start: 10-20-2024 End: 02-28-2025 Pre-admission assessment Verónica Ugarte [facility] Start: 10-10-2024 End: 10-10-2024 Telephone encounter Daksha Martinez Cyrus SIMMONS Work Phone: Hematology/Oncology Comment on above: Results Start: 10-07-2024 End: 10-07-2024 Office outpatient visit 15 minutes Daksha Bridges PA-C Work Phone: Hematology/Oncology Comment on above: Iron deficiency anem ia, unspecified iron deficiency anemia type (Primary Dx); Thrombocytopenia (HCC); Stage 3b chronic kidney disease (HCC) Start: 10-07-2024 End: 10-07-2024 ambulatory DAKSHA BRIDGES Facility:[facility] Start: 10-06-2024 End: 10-06-2024 Patient encounter procedure Vinay Bunting DO Work Phone: [facility]Electrodiagnostic s Work Phone: Start: 10-06-2024 End: 10-06-2024 ambulatory Queta Prieto Facility:[facility] Start: 10-05-2024 End: 10-05-2024 Patient encounter procedure [facility] Aud Audiology Aid - Jenny Watson [facility] AUD Comment on above: Hearing loss, mixed, bilateral (Primary Dx) Start: 10-05-2024 End: 10-05-2024 ambulatory TAMMY NEFFRenee Not Available Start: 09-29-2024 End: 09-29-2024 ambulatory Verónica Ugarte Facility:[facility] Start: 09-29-2024 End: 09-29-2024 Patient encounter procedure Verónica Ugarte [facility] Start: 09-19-2024 End: 09-19-2024 Patient encounter procedure DO Vinay Bunting Work Phone: [facility] [place] Work Phone: Start: 09-19-2024 End: 09-19-2024 ambulatory DO Vinay Bunting Work Phone: [facility] Work Phone: Start: 08-16-2024 End: 08-16-2024 Bamboo flowsheet Queta Kennedy Ulyssescarlene FLATWORK SUPERVISOR [facility] Start: 08-16-2024 End: 08-16-2024 Bamboo flowsheet Queta C Ulyssescarlene FLATWORK SUPERVISOR Work Phone: [facility] Start: 08-16-2024 End: 08-16-2024 Office outpatient visit 25 minutes Queta C Ulyssescarlene FLATWORK SUPERVISOR Work Phone: [facility] Comment on above: Transient ischemic a ttack (Primary Dx); Palpitations; Polyneuropathy Start: 08-16-2024 End: 08-16-2024 ambulatory QUETA PRIETO Not Available Start: 07-21-2024 End: 07-22-2024 Evaluation and management of inpatient DO Vinay Bunting Work Phone: [facility] Work Phone: Start: 07-21-2024 End: 07-22-2024 observation encounter DO Vinay Bunting Work Phone: [facility] Work Phone: Start: 07-21-2024 End: 07-22-2024 ambulatory Vinay Bunting Facility:[facility] Start: 07-19-2024 End: 07-19-2024 Telephone encounter Daksha Bridges PA-C Work Phone: Hematology/Oncology Comment on above: Results Start: 07-15-2024 End: 07-15-2024 Office outpatient visit 15 minutes Daksha Bridges PA-C Work Phone: Hematology/Oncology Comment on above: Iron deficiency anem ia, unspecified iron deficiency anemia type (Primary Dx); Anemia of chronic renal failure, unspecified CKD stage Start: 07-15-2024 End: 07-15-2024 ambulatory DAKSHA BRIDGES Facility:[facility] Start: 07-04-2024 End: 07-04-2024 ambulatory DO Vinay Bunting Work Phone: [facility] Work Phone: Start: 07-04-2024 End: 07-04-2024 Patient encounter procedure DO Vinay Bunting Work Phone: [facility] Work Phone: Start: 05-24-2024 End: 05-24-2024 ambulatory DO Vinay Bunting Work Phone: [facility] Work Phone: Start: 05-24-2024 End: 05-24-2024 Patient encounter procedure DO Vinay Bunting Work Phone: [facility] [place] Work Phone: Start: 05-11-2024 End: 05-11-2024 ambulatory DO Vinay Bunting Work Phone: [facility] Work Phone: Start: 05-11-2024 End: 05-11-2024 Patient encounter procedure DO Vinay Bunting Work Phone: [facility] Work Phone: Start: 04-20-2024 Telephone encounter Samantha Guerra Hematology/Oncology Comment on above: Results Start: 04-15-2024 End: 04-15-2024 Patient encounter procedure Shana Flores APRN.GRINDER SET UP OPERATOR THREAD TOOL Work Phone: Hematology/Oncology Comment on above: Iron deficiency anem ia, unspecified iron deficiency anemia type (Primary Dx); Anemia of chronic renal failure, unspecified CKD stage; Thrombocytopenia (HCC) Start: 03-28-2024 End: 03-28-2024 Patient encounter procedure Verónica Ugarte [facility] Start: 02-25-2024 End: 02-25-2024 ambulatory Chair 12 Jewell Work Phone: Hematology/Oncology Comment on above: Iron deficiency anem ia due to chronic blood loss (Primary Dx) Start: 02-18-2024 End: 02-18-2024 ambulatory Chair 11 Jarred Work Phone: Hematology/Oncology Comment on above: Iron deficiency anem ia due to chronic blood loss (Primary Dx) Start: 02-11-2024 End: 02-11-2024 ambulatory DO Vinay Bunting Work Phone: [facility] Work Phone: Start: 02-11-2024 End: 02-11-2024 Patient encounter procedure DO Vinay Bunting Work Phone: [facility] Work Phone: Start: 02-08-2024 Social Work Renetta Johnson TRANSPORTATION ANALYST Hematolo gy/Oncology Start: 02-01-2024 Telephone encounter Samantha Guerra Hematology/Oncology Comment on above: IV Iron Start: 01-29-2024 Telephone encounter Samantha Guerra Hematology/Oncology Comment on above: Patient Update Start: 01-29-2024 End: 01-29-2024 ambulatory Daksha Bridges PA-C Work Phone: Hematology/Oncology Comment on above: Stage 3b chronic kid tamara disease (HCC) (Primary Dx); Iron deficiency anemia secondary to inadequate dietary iron intake Start: 01-29-2024 End: 01-29-2024 Patient encounter procedure Daksha Bridges PA-C Work Phone: [facility] Start: 01-28-2024 End: 01-28-2024 Patient encounter procedure Nisa Shepherd [facility] Start: 12-07-2023 End: 12-07-2023 Patient encounter procedure Nisa Shepherd [facility] Start: 10-26-2023 Telephone encounter Samantha Guerra Hematology/Oncology Comment on above: Results Start: 10-20-2023 Office outpatient vi sit 25 minutes Anh Delcid [facility] Start: 10-20-2023 End: 10-20-2023 ambulatory DO Vinay Bunting Work Phone: [facility] Work Phone: Start: 10-20-2023 End: 10-20-2023 Patient encounter procedure DO Vinay Bunting Work Phone: [facility]-Sleep Lab Work Phone: Start: 09-05-2023 End: 09-05-2023 ambulatory DO Vinay Bunting Work Phone: [facility] Work Phone: Start: 09-05-2023 End: 09-05-2023 Patient encounter procedure DO Vinay Bunting Work Phone: [facility] [place] Work Phone: Start: 07-27-2023 Telephone encounter Samantha [...] Phone: Hematology/Oncology Comment on above: Results Start: 05-04-2023 Telephone encounter Karlie Vallejo RN Hematology/Oncology Comment on above: Results Start: 05-01-2023 End: 05-01-2023 ambulatory Daksha Bridges PA-C Work Phone: Hematology/Oncology Comment on above: Iron deficiency anem ia secondary to inadequate dietary iron intake (Primary Dx); Stage 3b chronic kidney disease (HCC) Start: 05-01-2023 End: 05-01-2023 Patient encounter procedure Daksha Bridges PA-C Work Phone: [facility] Start: 04-25-2023 ambulatory Facility:[id number] Start: 04-22-2023 End: 04-22-2023 Patient encounter procedure Jason RUSSELL [facility] Start: 04-15-2023 End: 04-15-2023 Patient encounter procedure Jason RUSSELL [facility] Start: 03-27-2023 End: 03-28-[address] VINAY PAXTON Facility:[facility] Start: 03-13-2023 End: 03-13-2023 ambulatory DO Vinay Bunting Work Phone: [facility] Work Phone: Start: 03-13-2023 End: 03-13-2023 Patient encounter procedure DO Vinay Bunting Work Phone: [facility]-Electrodiagnostic s Work Phone: Start: 03-11-2023 End: 03-13-2023 Evaluation and management of inpatient DO Vinay Bunting Work Phone: [facility] Work Phone: Start: 03-11-2023 ambulatory Facility:[id number] Start: 02-23-2023 End: 02-24-2023 ambulatory GOMEZ SALAM Facility:[facility] Start: 02-09-2023 Telephone encounter Sonia Rg RN Hematology/Oncology Comment on above: Results Start: 02-06-2023 End: 02-06-2023 ambulatory Daksha Bridges PA-C Work Phone: Hematology/Oncology Comment on above: Iron deficiency anem ia secondary to inadequate dietary iron intake (Primary Dx) Start: 02-06-2023 End: 02-06-2023 Patient encounter procedure Daksha MACIELC Work Phone: [facility] Start: 01-16-2023 End: 01-16-2023 Patient encounter procedure DO Vinay Bunting Work Phone: [facility] [place] Work Phone: Start: 01-08-2023 End: 01-08-2023 Patient encounter procedure Nisa Shepherd [facility] Start: 12-29-2022 End: 12-29-2022 Admission to same day surgery center DO Vinay Bunting Work Phone: [facility] [place] Start: 12-29-2022 End: 12-29-2022 ambulatory DO Vinay Bunting Work Phone: [facility] Work Phone: Start: 12-24-2022 End: 12-24-2022 Patient encounter procedure Nisa Shepherd [facility] Start: 12-15-2022 Telephone [...] Phone: [facility] Start: 10-16-2022 End: 10-16-2022 ambulatory Dakshania Bridges PA-C Work Phone: Hematology/Oncology Comment on above: Anemia, unspecified type (Primary Dx); Iron deficiency anemia secondary to inadequate dietary iron intake Iron deficiency anem ia due to chronic blood loss (Primary Dx) Start: 10-15-2022 Telephone encounter Financial Navigator Braden Work Phone: Hematology/Oncology Comment on above: Benefits Investigati on Start: 10-14-2022 Office outpatient vi sit 25 minutes Anh [facility] Start: 10-14-2022 End: 10-14-2022 ambulatory DO Vinay Bunting Work Phone: [facility] Work Phone: Start: 10-14-2022 End: 10-14-2022 Patient encounter procedure DO Vinay Bunting Work Phone: [facility]-Sleep Lab Start: 10-10-2022 Social Work Renetta POTTERW Hematolo gy/Oncology Start: 10-03-2022 Telephone encounter Henry gardner MD Work Phone: Hematology/Oncology Comment on above: Results, Lab Start: 10-01-2022 End: 10-01-2022 ambulatory Henry Walker MD Work Phone: Hematology/Oncology Comment on above: Anemia, unspecified type (Primary Dx) Start: 10-01-2022 End: 10-01-2022 Patient encounter procedure Henry Walker MD Work Phone: [facility] Start: 09-26-2022 Chart abstracting Henry hernandez MD Work Phone: Hematology/Oncology Start: 09-19-2022 End: 09-19-2022 Patient encounter procedure Nisa Shpeherd [facility] Start: 09-09-2022 End: 09-10-[address] DOCTOR SALGADO Facility:[facility] Start: 09-02-2022 End: 09-02-2022 Patient encounter procedure Jose Carlos Mattson [facility] Start: 07-31-2022 End: 07-31-2022 Patient encounter procedure DO Vinay Matta Work Phone: [facility] Start: 07-24-2022 End: 07-24-2022 Patient encounter procedure DO Vinay Bunhomer Work Phone: [facility] Start: 07-22-2022 End: 07-22-2022 Emergency department patient visit DO Vinay Bunting Work Phone: [facility]-Emergency Room Start: 06-24-2022 End: 06-25-2022 ambulatory JASON RUSSELL Facility:[facility] Start: 06-23-2022 End: 06-24-[address] VINAY AMTTA Facility:[facility] Start: 06-16-2022 End: 06-16-2022 Patient encounter procedure DO Vinay Bunting Work Phone: [facility] Start: 06-12-2022 End: 06-12-2022 Patient encounter procedure Jason RUSSELL [facility] Start: 05-21-2022 End: 05-21-2022 Patient encounter procedure DO Vinay Bunting Work Phone: [facility] [place] Start: 04-23-2022 End: 04-23-2022 Patient encounter procedure Jason SPRINGAM [facility] Start: 04-22-2022 End: 04-22-2022 Patient encounter procedure DO Vinay Bunting Work Phone: [facility] Start: 01-31-2021 End: 01-31-2021 Patient encounter procedure Vinay Bunting [facility] [place] Procedures Date Procedure Procedure Detail Performing Clinician Start: 06-08-2025 Ultrasound elastography of liver Vinay Bunting DO Work Phone: Start: 02-08-2025 MR lumbar spine wo con Vinay Bunting DO Work Phone: Start: 12-28-2024 Urine culture Vinay Bunting DO Work Phone: Start: 12-28-2024 Screening mammography of bilateral breasts Vinay Bunting DO Work Phone: Start: 12-15-2024 X-ray of lumbar spine, six views including bending views Vinay Bunting DO Work Phone: Start: 07-21-2024 SARS-CoV-2, Influenza & RSV (PCR) DO Gaudencio rin Bunting Work Phone: Start: 07-21-2024 Doppler ultrasonography of bilateral carotid arteries DO Vinay Bunting Work Phone: Start: 07-21-2024 MRI of head DO Vinay Bunting Work Phone: Start: 07-21-2024 CT of head without contrast DO Vinay Bu nting Work Phone: Start: 07-21-2024 Plain chest X-ray DO Vinay Bunting Work Phone: Start: 05-24-2024 Ultrasonography of bilateral kidneys DO Ivnay Bunting Work Phone: Start: 02-29-2024 Carpal tunnel syndrome (disorder) Kylee [...] Vinay Bunting Work Phone: Start: 06-12-2022 Colonoscopy Queta Prieto FLATWORK SUPERVISOR Work Phone: Start: 06-12-2022 Colonoscopy [facility] Start: 06-12-2022 Esophagogastroduodenoscopy [facility] Start: 04-22-2022 X-ray of both knees DO Vinay Bunting Work Phone[facility] DO Vinay Bunt ing Work Phone: Plan of Treatment Date Care Activity Detail Author Start: 06-12-2032 Screening for malign ant neoplasm of colon [facility] Start: 04-18-2028 Diabetes Screening Diabetes Screenin [facility] Start: 01-06-2028 Diabetes Screening Diabetes Screenin g [facility] Start: 10-07-2027 Diabetes Screening Diabetes Screenin g [facility] Start: 07-15-2027 Diabetes Screening Diabetes Screenin g [facility] Start: 04-15-2027 Diabetes Screening Diabetes Screenin g [facility] Start: 01-28-2027 Diabetes Screening Diabetes Screenin g [facility] Start: 10-23-2026 Diabetes Screening Diabetes Screenin g [facility] Start: 07-24-2026 DIABETES SCREEN DIABETES SCREEN [facility] Start: 05-01-2026 DIABETES SCREEN DIABETES SCREEN [facility] Start: 04-18-2026 Complete blood count Hemoglobin/Braden tocdet [facility] Start: 04-18-2026 Creatinine measurement Serum Creatin ine [facility] Start: 02-06-2026 DIABETES SCREEN DIABETES SCREEN [facility] Start: 01-06-2026 Complete blood count Hemoglobin/[facility] [facility] Start: 01-06-2026 Creatinine measurement Serum Creatin ine [facility] Start: 12-12-2025 DIABETES SCREEN DIABETES SCREEN [facility] Start: 10-07-2025 Complete blood count Hemoglobin/[facility] Start: 10-07-2025 Creatinine measurement Serum Creatin ine [facility] Start: 10-01-2025 DIABETES SCREEN DIABETES SCREEN [facility] Start: 08-04-2025 End: 08-04-2025 Follow-up encounter 08/04/2025 11:00 AM EDT Visit (SP) Office Hematology/Oncology [address] [place] [address] Daksha Bridges, PA-C [address] [place] [address] 3 month follow up with Daksha and lab Hematology/Oncology Comment on above: 3 month follow up wi Daksha and lab Start: 08-04-2025 End: 08-04-2025 Patient encounter procedure 08/04/2025 10:45 AM EDT Office Visit [facility] [address] [place] [address] 3 month follow up with Daksha and lab [facility] Comment on above: 3 month follow up wi Daksha and lab Start: 07-17-2025 Influenza vaccination Influenza Vacc ine (#1) [facility] Start: 07-15-2025 Complete blood count Hemoglobin/Braden [facility] Start: 07-15-2025 Creatinine measurement Serum Creatin ine [facility] Start: 06-26-2025 End: 06-26-2025 Patient encounter procedure 06/26/2025 10:00 AM EDT Office Visit [facility] [address] [place] [id number] Trudy Weiss PA [address] [place] [address] [facility] Start: 06-08-2025 [facility] Start: 04-15-2025 Complete blood count Hemoglobin/Braden [facility] Start: 04-15-2025 Creatinine measurement Serum Creatin ine [facility] Start: 04-07-2025 End: 04-07-2025 Follow-up encounter 04/07/2025 2:00 PM EDT Visit (SP) Office Hematology/Oncology [address] [place] [address] Daksha Bridges, PA-C [address] [place] [address] 3 month follow up with Daksha and lab Hematology/Oncology Comment on above: 3 month follow up peter zimmer Daksha and lab Start: 04-07-2025 End: 04-07-2025 Patient encounter procedure 04/07/2025 1:45 PM EDT Office Visit [facility] [address] [place] [address] 3 month follow up with Daksha and lab [facility] Comment on above: 3 month follow up peter zimmer Daksha and lab Start: 04-05-2025 End: 07-05-2025 CBC W Auto Differential panel - Blood COMPLETE BLOOD COUNT AND DIFFERENTIAL Lab Routine Iron deficiency anemia, unspecified iron deficiency anemia type Thrombocytopenia (HCC) Stage 3b chronic kidney disease (HCC) Expected: 04/05/2025 (Approximate), Expires: 07/05/2025 [facility] Comment on above: Expected: 04/05/2025 (Approximate), Expires: 07/05/2025 Start: 04-05-2025 End: 07-05-2025 Comprehensive metabolic 2000 panel - Serum or Plasma COMPREHENSIVE METABOLIC PANEL Lab Routine Iron deficiency anemia, unspecified iron deficiency anemia type Thrombocytopenia (HCC) Stage 3b chronic kidney disease (HCC) Expected: 04/05/2025 (Approximate), Expires: 07/05/2025 [facility] Comment on above: Expected: 04/05/2025 (Approximate), Expires: 07/05/2025 Start: 04-05-2025 End: 07-05-2025 Ferritin [Mass/volume] in Serum or Plasma FERRITIN Lab Routine Iron deficiency anemia, unspecified iron deficiency anemia type Thrombocytopenia (HCC) Stage 3b chronic kidney disease (HCC) Expected: 04/05/2025 (Approximate), Expires: 07/05/2025 [facility] Comment on above: Expected: 04/05/2025 (Approximate), Expires: 07/05/2025 Start: 04-05-2025 End: 07-05-2025 Iron and Iron binding capacity panel - Serum or Plasma IRON AND TIBC Lab Routine Iron deficiency anemia, unspecified iron deficiency anemia type Thrombocytopenia (HCC) Stage 3b chronic kidney disease (HCC) Expected: 04/05/2025 (Approximate), Expires: 07/05/2025 [facility] Work Phone: Comment on above: Expected: 04/05/2025 (Approximate), Expires: 07/05/2025 Start: 04-05-2025 End: 07-05-2025 RETICULOCYTE COUNT RETICULOCYTE COUNT Lab Routine Iron deficiency anemia, unspecified iron deficiency anemia type Thrombocytopenia (HCC) Stage 3b chronic kidney disease (HCC) Expected: 04/05/2025 (Approximate), Expires: 07/05/2025 [facility] Comment on above: Expected: 04/05/2025 (Approximate), Expires: 07/05/2025 Start: 03-06-2025 End: 03-06-2025 Patient encounter procedure [facility] Comment on above: Arrived Start: 01-28-2025 Complete blood count Hemoglobin/Braden tocrit [facility] Start: 01-28-2025 Creatinine measurement Serum Creatin ine [facility] Start: 01-27-2025 Urine screening for protein Diabetes: Urine Protein Screening [facility] Start: 01-06-2025 End: 01-06-2025 Follow-up encounter 01/06/2025 2:30 PM EST Visit (SP) Office Hematology/Oncology [address] [place] [address] Daksha Bridges, PA-C [address] [place] [address] 3 month follow up with lab Hematology/Oncology Comment on above: 3 month follow up [facility] Start: 01-06-2025 End: 01-06-2025 Patient encounter procedure 01/06/2025 2:15 PM EST Office Visit [facility] [address] [place] [address] [place] [address] 3 month follow up with lab [facility] Comment on above: 3 month follow up [facility] Start: 01-03-2025 End: 01-03-2025 Patient encounter procedure [facility] [address] Comment on above: Arrived Start: 01-02-2025 End: 04-03-2025 CBC W Auto Differential panel - Blood COMPLETE BLOOD COUNT AND DIFFERENTIAL Lab Routine Iron deficiency anemia, unspecified iron deficiency anemia type Expected: 01/02/2025, Expires: 04/03/2025 [facility] Work Phone: Comment on above: Expected: 01/02/2025 , Expires: 04/03/2025 Start: 01-02-2025 End: 04-03-2025 Comprehensive metabolic 2000 panel - Serum or Plasma COMPREHENSIVE METABOLIC PANEL Lab Routine Iron deficiency anemia, unspecified iron deficiency anemia type Expected: 01/02/2025, Expires: 04/03/2025 [facility] Comment on above: Expected: 01/02/2025 , Expires: 04/03/2025 Start: 01-02-2025 End: 04-03-2025 Ferritin [Mass/volume] in Serum or Plasma FERRITIN Lab Routine Iron deficiency anemia, unspecified iron deficiency anemia type Expected: 01/02/2025, Expires: 04/03/2025 [facility] Comment on above: Expected: 01/02/2025 , Expires: 04/03/2025 Start: 01-02-2025 End: 04-03-2025 Iron and Iron binding capacity panel - Serum or Plasma IRON AND TIBC Lab Routine Iron deficiency anemia, unspecified iron deficiency anemia type Expected: 01/02/2025, Expires: 04/03/2025 [facility] Comment on above: Expected: 01/02/2025 , Expires: 04/03/2025 Start: 01-02-2025 End: 04-03-2025 RETICULOCYTE COUNT RETICULOCYTE COUNT Lab Routine Iron deficiency anemia, unspecified iron deficiency anemia type Expected: 01/02/2025, Expires: 04/03/2025 [facility] Comment on above: Expected: 01/02/2025 , Expires: 04/03/2025 Start: 12-28-2024 Bacteria identified in Urine by Culture Urine Culture [facility] Start: 12-28-2024 Urine culture [facility] Start: 12-05-2024 End: 12-05-2024 Patient encounter procedure 12/05/2024 8:40 AM EST [facility] [address] [place] [address] Queta Prieto, FLATWORK SUPERVISOR [address] [place] [address] [facility] Start: 11-16-2024 Advance Directive Discussion Advance Directive Discussion [facility] Start: 11-16-2024 Medicare Advantage Annual Wellness Visit Medicare Advantage Annual Wellness Visit [facility] Start: 10-15-2024 End: 01-14-2025 CBC W Auto Differential panel - Blood COMPLETE BLOOD COUNT AND DIFFERENTIAL Lab Routine Iron deficiency anemia, unspecified iron deficiency anemia type Anemia of chronic renal failure, unspecified CKD stage Expected: 10/15/2024, Expires: 01/14/2025 [facility] Work Phone: Comment on above: Expected: 10/15/2024 , Expires: 01/14/2025 Start: 10-15-2024 End: 01-14-2025 Comprehensive metabolic 2000 panel - Serum or Plasma COMPREHENSIVE METABOLIC PANEL Lab Routine Iron deficiency anemia, unspecified iron deficiency anemia type Anemia of chronic renal failure, unspecified CKD stage Expected: 10/15/2024, Expires: 01/14/2025 [facility] Comment on above: Expected: 10/15/2024 , Expires: 01/14/2025 Start: 10-15-2024 End: 01-14-2025 Ferritin [Mass/volume] in Serum or Plasma FERRITIN Lab Routine Iron deficiency anemia, unspecified iron deficiency anemia type Anemia of chronic renal failure, unspecified CKD stage Expected: 10/15/2024, Expires: 01/14/2025 [facility] Comment on above: Expected: 10/15/2024 , Expires: 01/14/2025 Start: 10-15-2024 End: 01-14-2025 Iron and Iron binding capacity panel - Serum or Plasma IRON AND TIBC Lab Routine Iron deficiency anemia, unspecified iron deficiency anemia type Anemia of chronic renal failure, unspecified CKD stage Expected: 10/15/2024, Expires: 01/14/2025 [facility] Comment on above: Expected: 10/15/2024 , Expires: 01/14/2025 Start: 10-15-2024 End: 01-14-2025 RETICULOCYTE COUNT RETICULOCYTE COUNT Lab Routine Iron deficiency anemia, unspecified iron deficiency anemia type Anemia of chronic renal failure, unspecified CKD stage Expected: 10/15/2024, Expires: 01/14/2025 [facility] Comment on above: Expected: 10/15/2024 , Expires: 01/14/2025 Start: 10-07-2024 End: 10-07-2024 Follow-up encounter 10/07/2024 2:30 PM EST Visit (SP) Office Hematology/Oncology [address] [place] [address] Daksha Bridges, PA-C [address] [place] [address] 3 month follow up with lab Hematology/Oncology Comment on above: 3 month follow up [facility] Start: 10-07-2024 End: 10-07-2024 Patient encounter procedure 10/07/2024 2:15 PM EST Office Visit [facility] [address] [place] [address] 3 month follow up with lab [facility] Comment on above: 3 month follow up wi lab Start: 08-16-2024 End: 08-16-2026 Cardiac event monitor Cardiac event monitor Cardiac Services Routine Transient ischemic attack Palpitations Expected: 08/16/2024 (Approximate), Expires: 08/16/2026 [facility] Work Phone: Comment on above: Expected: 08/16/2024 (Approximate), Expires: 08/16/2026 Start: 08-16-2024 End: 08-16-2024 Patient encounter procedure 08/16/2024 9:00 AM EDT Office Visit [facility] [employer] [address] [place] [id number] Queta Prieto, FLATWORK SUPERVISOR [address] [place] [address] Arrived [facility] Comment on above: Arrived Start: 07-22-2024 Comprehensive metabo lic 2000 panel - Serum or Plasma [facility] Start: 07-22-2024 End: 07-22-2024 [facility] Start: 07-21-2024 Measurement of acetylcholine receptor antibody [facility] Start: 07-21-2024 [facility] Start: 07-21-2024 Doppler ultrasonogra phy of bilateral carotid arteries US carotid doppler BI [facility] Start: 07-21-2024 MR Brain WO contrast [facility] Start: 07-21-2024 MRI of head MR head/brain wo con [facility] Start: 07-21-2024 US.doppler Carotid arteries - bilateral [facility] Start: 07-21-2024 Physical therapy procedure [facility] Start: 07-21-2024 Referral to neurologist [facility] Start: 07-21-2024 Referral to occupati onal therapist [facility] Start: 07-21-2024 Referral to speech a nd language therapy service [facility] Start: 07-21-2024 [facility] Start: 07-21-2024 Hospital admission [facility] Start: 07-17-2024 Covid-19 Vaccine ( season) Covid-19 Vaccine ( season) [facility] Start: 07-17-2024 Covid-19 Vaccine ( season) Covid-19 Vaccine ( season) [facility] Start: 07-17-2024 Influenza vaccination Influenza Vacc ine (#1) [facility] Start: 07-15-2024 End: 07-15-2024 Follow-up encounter 07/15/2024 2:30 PM EDT Visit (SP) Office Hematology/Oncology [address] [place] [address] Daksha Bridges PA-C [address] [place] [address] 3 month follow up with lab Hematology/Oncology Comment on above: 3 month follow up [facility] Start: 07-15-2024 End: 07-15-2024 Patient encounter procedure 07/15/2024 2:15 PM EDT Office Visit [facility] [address] [place] [address] 3 month follow up with lab [facility] Comment on above: 3 month follow up [facility] Start: 07-11-2024 End: 10-10-2024 CBC W Auto Differential panel - Blood COMPLETE BLOOD COUNT AND DIFFERENTIAL Lab Routine Iron deficiency anemia, unspecified iron deficiency anemia type Anemia of chronic renal failure, unspecified CKD stage Thrombocytopenia (HCC) Expected: 07/11/2024 (Approximate), Expires: 10/10/2024 [facility] Work Phone: Comment on above: Expected: 07/11/2024 (Approximate), Expires: 10/10/2024 Start: 07-11-2024 End: 10-10-2024 Comprehensive metabolic 2000 panel - Serum or Plasma COMPREHENSIVE METABOLIC PANEL Lab Routine Iron deficiency anemia, unspecified iron deficiency anemia type Anemia of chronic renal failure, unspecified CKD stage Thrombocytopenia (HCC) Expected: 07/11/2024 (Approximate), Expires: 10/10/2024 [facility] Comment on above: Expected: 07/11/2024 (Approximate), Expires: 10/10/2024 Start: 07-11-2024 End: 10-10-2024 Ferritin [Mass/volume] in Serum or Plasma FERRITIN Lab Routine Iron deficiency anemia, unspecified iron deficiency anemia type Anemia of chronic renal failure, unspecified CKD stage Thrombocytopenia (HCC) Expected: 07/11/2024 (Approximate), Expires: 10/10/2024 [facility] Comment on above: Expected: 07/11/2024 (Approximate), Expires: 10/10/2024 Start: 07-11-2024 End: 10-10-2024 Iron and Iron binding capacity panel - Serum or Plasma IRON AND TIBC Lab Routine Iron deficiency anemia, unspecified iron deficiency anemia type Anemia of chronic renal failure, unspecified CKD stage Thrombocytopenia (HCC) Expected: 07/11/2024 (Approximate), Expires: 10/10/2024 [facility] Comment on above: Expected: 07/11/2024 (Approximate), Expires: 10/10/2024 Start: 07-11-2024 End: 10-10-2024 RETICULOCYTE COUNT RETICULOCYTE COUNT Lab Routine Iron deficiency anemia, unspecified iron deficiency anemia type Anemia of chronic renal failure, unspecified CKD stage Thrombocytopenia (HCC) Expected: 07/11/2024 (Approximate), Expires: 10/10/2024 [facility] Comment on above: Expected: 07/11/2024 (Approximate), Expires: 10/10/2024 Start: 04-30-2024 End: 07-30-2024 CBC W Auto Differential panel - Blood CBC + DIFF Lab Routine Stage 3b chronic kidney disease (HCC) Iron deficiency anemia secondary to inadequate dietary iron intake Expected: 04/30/2024 (Approximate), Expires: 07/30/2024 [facility] Work Phone: Comment on above: Expected: 04/30/2024 (Approximate), Expires: 07/30/2024 Start: 04-30-2024 End: 07-30-2024 Comprehensive metabolic 2000 panel - Serum or Plasma COMP METABOLIC PANEL Lab Routine Stage 3b chronic kidney disease (HCC) Iron deficiency anemia secondary to inadequate dietary iron intake Expected: 04/30/2024 (Approximate), Expires: 07/30/2024 [facility] Work Phone: Comment on above: Expected: 04/30/2024 (Approximate), Expires: 07/30/2024 Start: 04-30-2024 End: 07-30-2024 Ferritin [Mass/volume] in Serum or Plasma FERRITIN BLD Lab Routine Stage 3b chronic kidney disease (HCC) Iron deficiency anemia secondary to inadequate dietary iron intake Expected: 04/30/2024 (Approximate), Expires: 07/30/2024 [facility] Work Phone: Comment on above: Expected: 04/30/2024 (Approximate), Expires: 07/30/2024 Start: 04-30-2024 End: 07-30-2024 Iron and Iron binding capacity panel - Serum or Plasma IRON + TIBC Lab Routine Stage 3b chronic kidney disease (HCC) Iron deficiency anemia secondary to inadequate dietary iron intake Expected: 04/30/2024 (Approximate), Expires: 07/30/2024 [facility] Work Phone: Comment on above: Expected: 04/30/2024 (Approximate), Expires: 07/30/2024 Start: 11-16-2023 Advance Directive Discussion Advance Directive Discussion [facility] Start: 11-16-2023 Behavioral Health Screening Behavioral Health Screening [facility] Start: 11-16-2023 Depression Assessment Depression Ass essment [facility] Start: 08-01-2023 End: 10-01-2023 CBC W Auto Differential panel - Blood CBC + DIFF Lab Routine Iron deficiency anemia secondary to inadequate dietary iron intake Expected: 08/01/2023 (Approximate), Expires: 10/01/2023 [facility] Work Phone: Comment on above: Expected: 08/01/2023 (Approximate), Expires: 10/01/2023 Start: 08-01-2023 End: 10-01-2023 Comprehensive metabolic 2000 panel - Serum or Plasma COMP METABOLIC PANEL Lab Routine Iron deficiency anemia secondary to inadequate dietary iron intake Expected: 08/01/2023 (Approximate), Expires: 10/01/2023 [facility] Work Phone: Comment on above: Expected: 08/01/2023 (Approximate), Expires: 10/01/2023 Start: 08-01-2023 End: 10-01-2023 Ferritin [Mass/volume] in Serum or Plasma FERRITIN BLD Lab Routine Iron deficiency anemia secondary to inadequate dietary iron intake Expected: 08/01/2023 (Approximate), Expires: 10/01/2023 [facility] Work Phone: Comment on above: Expected: 08/01/2023 (Approximate), Expires: 10/01/2023 Start: 08-01-2023 End: 10-01-2023 Iron and Iron binding capacity panel - Serum or Plasma IRON + TIBC Lab Routine Iron deficiency anemia secondary to inadequate dietary iron intake Expected: 08/01/2023 (Approximate), Expires: 10/01/2023 [facility] Work Phone: Comment on above: Expected: 08/01/2023 (Approximate), Expires: 10/01/2023 Start: 07-24-2023 End: 09-23-2023 CBC W Auto Differential panel - Blood CBC + DIFF Lab Routine Iron deficiency anemia secondary to inadequate dietary iron intake Stage 3b chronic kidney disease (HCC) Expected: 07/24/2023, Expires: 09/23/2023 [facility] Work Phone: Comment on above: Expected: 07/24/2023 , Expires: 09/23/2023 Start: 07-24-2023 End: 09-23-2023 Comprehensive metabolic 2000 panel - Serum or Plasma COMP METABOLIC PANEL Lab Routine Iron deficiency anemia secondary to inadequate dietary iron intake Stage 3b chronic kidney disease (HCC) Expected: 07/24/2023, Expires: 09/23/2023 [facility] Work Phone: Comment on above: Expected: 07/24/2023 , Expires: 09/23/2023 Start: 07-24-2023 End: 09-23-2023 Ferritin [Mass/volume] in Serum or Plasma FERRITIN BLD Lab Routine Iron deficiency anemia secondary to inadequate dietary iron intake Stage 3b chronic kidney disease (HCC) Expected: 07/24/2023, Expires: 09/23/2023 [facility] Work Phone: Comment on above: Expected: 07/24/2023 , Expires: 09/23/2023 Start: 07-24-2023 End: 09-23-2023 Iron and Iron binding capacity panel - Serum or Plasma IRON + TIBC Lab Routine Iron deficiency anemia secondary to inadequate dietary iron intake Stage 3b chronic kidney disease (HCC) Expected: 07/24/2023, Expires: 09/23/2023 [facility] Work Phone: Comment on above: Expected: 07/24/2023 , Expires: 09/23/2023 Start: 07-17-2023 Covid-19 Vaccine () Covid-19 Vaccine () [facility] Start: 07-17-2023 Influenza vaccination [facility] Start: 05-09-2023 End: 07-09-2023 CBC W Auto Differential panel - Blood CBC + DIFF Lab Routine Iron deficiency anemia secondary to inadequate dietary iron intake Expected: 05/09/2023 (Approximate), Expires: 07/09/2023 [facility] Work Phone: Comment on above: Expected: 05/09/2023 (Approximate), Expires: 07/09/2023 Start: 05-09-2023 End: 07-09-2023 Comprehensive metabolic 2000 panel - Serum or Plasma COMP METABOLIC PANEL Lab Routine Iron deficiency anemia secondary to inadequate dietary iron intake Expected: 05/09/2023 (Approximate), Expires: 07/09/2023 [facility] Work Phone: Comment on above: Expected: 05/09/2023 (Approximate), Expires: 07/09/2023 Start: 05-09-2023 End: 07-09-2023 Ferritin [Mass/volume] in Serum or Plasma FERRITIN BLD Lab Routine Iron deficiency anemia secondary to inadequate dietary iron intake Expected: 05/09/2023 (Approximate), Expires: 07/09/2023 [facility] Work Phone: Comment on above: Expected: 05/09/2023 (Approximate), Expires: 07/09/2023 Start: 05-09-2023 End: 07-09-2023 Iron and Iron binding capacity panel - Serum or Plasma IRON + TIBC Lab Routine Iron deficiency anemia secondary to inadequate dietary iron intake Expected: 05/09/2023 (Approximate), Expires: 07/09/2023 [facility] Work Phone: Comment on above: Expected: 05/09/2023 (Approximate), Expires: 07/09/2023 Start: 03-13-2023 [facility] Start: 03-11-2023 Physical therapy procedure [facility] Start: 03-11-2023 Hospital admission [facility] Start: 03-11-2023 Referral to neurologist [facility] Start: 02-09-2023 End: 04-11-2023 CBC W Auto Differential panel - Blood CBC + DIFF Lab Routine Iron deficiency anemia secondary to inadequate dietary iron intake Expected: 02/09/2023 (Approximate), Expires: 04/11/2023 [facility] Work Phone: Comment on above: Expected: 02/09/2023 (Approximate), Expires: 04/11/2023 Start: 02-09-2023 End: 04-11-2023 Comprehensive metabolic 2000 panel - Serum or Plasma COMP METABOLIC PANEL Lab Routine Iron deficiency anemia secondary to inadequate dietary iron intake Expected: 02/09/2023 (Approximate), Expires: 04/11/2023 [facility] Work Phone: Comment on above: Expected: 02/09/2023 (Approximate), Expires: 04/11/2023 Start: 02-09-2023 End: 04-11-2023 Ferritin [Mass/volume] in Serum or Plasma FERRITIN BLD Lab Routine Iron deficiency anemia secondary to inadequate dietary iron intake Expected: 02/09/2023 (Approximate), Expires: 04/11/2023 [facility] Work Phone: Comment on above: Expected: 02/09/2023 (Approximate), Expires: 04/11/2023 Start: 02-09-2023 End: 04-11-2023 Iron and Iron binding capacity panel - Serum or Plasma IRON + TIBC Lab Routine Iron deficiency anemia secondary to inadequate dietary iron intake Expected: 02/09/2023 (Approximate), Expires: 04/11/2023 [facility] Work Phone: Comment on above: Expected: 02/09/2023 (Approximate), Expires: 04/11/2023 Start: 02-06-2023 End: 04-08-2023 CBC W Auto Differential panel - Blood CBC + DIFF Lab Routine Iron deficiency anemia secondary to inadequate dietary iron intake Expected: 02/06/2023, Expires: 04/08/2023 [facility] Work Phone: Comment on above: Expected: 02/06/2023 , Expires: 04/08/2023 Start: 02-06-2023 End: 04-08-2023 Comprehensive metabolic 2000 panel - Serum or Plasma COMP METABOLIC PANEL Lab Routine Iron deficiency anemia secondary to inadequate dietary iron intake Expected: 02/06/2023, Expires: 04/08/2023 [facility] Work Phone: Comment on above: Expected: 02/06/2023 , Expires: 04/08/2023 Start: 02-06-2023 End: 04-08-2023 Iron and Iron binding capacity panel - Serum or Plasma IRON + TIBC Lab Routine Iron deficiency anemia secondary to inadequate dietary iron intake Expected: 02/06/2023, Expires: 04/08/2023 [facility] Work Phone: Comment on above: Expected: 02/06/2023 , Expires: 04/08/2023 Start: 12-29-2022 [facility] Start: 11-27-2022 End: 01-27-2023 CBC W Auto Differential panel - Blood CBC + DIFF Lab Routine Anemia, unspecified type Iron deficiency anemia secondary to inadequate dietary iron intake Expected: 11/27/2022, Expires: 01/27/2023 [facility] Work Phone: Comment on above: Expected: 11/27/2022 , Expires: 01/27/2023 Start: 11-27-2022 End: 01-27-2023 Comprehensive metabolic 2000 panel - Serum or Plasma COMP METABOLIC PANEL Lab Routine Anemia, unspecified type Iron deficiency anemia secondary to inadequate dietary iron intake Expected: 11/27/2022, Expires: 01/27/2023 [facility] Work Phone: Comment on above: Expected: 11/27/2022 , Expires: 01/27/2023 Start: 11-27-2022 End: 01-27-2023 Ferritin [Mass/volume] in Serum or Plasma FERRITIN BLD Lab Routine Anemia, unspecified type Iron deficiency anemia secondary to inadequate dietary iron intake Expected: 11/27/2022, Expires: 01/27/2023 [facility] Work Phone: Comment on above: Expected: 11/27/2022 , Expires: 01/27/2023 Start: 11-27-2022 End: 01-27-2023 Iron and Iron binding capacity panel - Serum or Plasma IRON + TIBC Lab Routine Anemia, unspecified type Iron deficiency anemia secondary to inadequate dietary iron intake Expected: 11/27/2022, Expires: 01/27/2023 [facility] Work Phone: Comment on above: Expected: 11/27/2022 , Expires: 01/27/2023 Start: 11-16-2022 ADVANCE DIRECTIVE DISCUSSION ADVANCE DIRECTIVE DISCUSSION [facility] Start: 11-16-2022 DEPRESSION ASSESSMENT DEPRESSION ASS ESSMENT [facility] Start: 10-29-2022 End: 12-29-2022 MONOCLONAL PROTEIN, SERUM (BLOOD) MONOCLONAL PROTEIN, SERUM (BLOOD) Lab Routine Anemia, unspecified type Expected: 10/29/2022 (Approximate), Expires: 12/29/2022 [facility] Work Phone: Comment on above: Expected: 10/29/2022 (Approximate), Expires: 12/29/2022 Start: 10-29-2022 End: 12-29-2022 PROTEIN ELECTROPHORESIS SERUM W/INTERP PROTEIN ELECTROPHORESIS SERUM W/INTERP Lab Routine Anemia, unspecified type Expected: 10/29/2022 (Approximate), Expires: 12/29/2022 [facility] Work Phone: Comment on above: Expected: 10/29/2022 (Approximate), Expires: 12/29/2022 Start: 10-01-2022 End: 12-01-2022 Cobalamin (Vitamin B12) [Mass/volume] in Serum or Plasma [facility] Work Phone: Comment on above: Expected: 10/01/2022 , Expires: 12/01/2022 Start: 10-01-2022 End: 10-01-2023 Ferritin [Mass/volume] in Serum or Plasma [facility] Work Phone: Comment on above: Expected: 10/01/2022 , Expires: 10/01/2023 Start: 10-01-2022 End: 12-01-2022 Folate [Mass/volume] in Serum or Plasma [facility] Work Phone: Comment on above: Expected: 10/01/2022 , Expires: 12/01/2022 Start: 10-01-2022 End: 10-01-2023 Iron and Iron binding capacity panel - Serum or Plasma [facility] Work Phone: Comment on above: Expected: 10/01/2022 , Expires: 10/01/2023 Start: 10-01-2022 End: 12-01-2022 PROTEIN ELECT RND UR W/INTERP [facility] Work Phone: Comment on above: Expected: 10/01/2022 , Expires: 12/01/2022 Start: 10-01-2022 End: 12-01-2022 Zinc [Mass/volume] in Serum or Plasma [facility] Work Phone: Comment on above: Expected: 10/01/2022 , Expires: 12/01/2022 Start: 07-17-2022 Influenza vaccination INFLUENZA (#1) [facility] Start: 11-16-2021 ADVANCE DIRECTIVE DISCUSSION ADVANCE DIRECTIVE DISCUSSION [facility] Start: 11-16-2021 DEPRESSION ASSESSMENT DEPRESSION ASS ESSMENT [facility] Start: 10-08-2021 COVID-19 VACCINE (4 - Booster for Pfizer series) COVID-19 VACCINE (4 - Booster for Pfizer series) [facility] Start: 10-08-2021 COVID-19 VACCINE (4 - Pfizer series) COVID-19 VACCINE (4 - Pfizer series) [facility] Start: 08-16-2019 Pneumococcal Vaccine : 50+ (2 of 2 - PCV) Pneumococcal Vaccine: 50+ (2 of 2 - PCV) [facility] Start: 08-16-2019 Pneumococcal Vaccine : 65+ (2 - PCV) Pneumococcal Vaccine: 65+ (2 - PCV) [facility] Start: 08-16-2019 Pneumococcal Vaccine : 65+ (2 of 2 - PCV) Pneumococcal Vaccine: 65+ (2 of 2 - PCV) [facility] Start: 08-16-2019 Pneumococcal Vaccine : 65+ Years (2 of 2 - PCV) Pneumococcal Vaccine: 65+ Years (2 of 2 - PCV) [facility] Start: 08-16-2019 PNEUMOCOCCAL: 65+ (2 - PCV) PNEUMOCOCCAL: 65+ (2 - PCV) [facility] Start: 2013 BONE DENSITY BONE DENSITY [facility] Start: 2013 Bone Density Screening Bone Density Screening [facility] Start: 2013 PNEUMOCOCCAL: 65+ (1 - PCV) PNEUMOCOCCAL: 65+ (1 - PCV) [facility] Start: 2013 Screening for osteoporosis Bone Density Screening [facility] Start: 2008 RSV Vaccine (1 - 1-d ose 60+ series) RSV Vaccine (1 - 1-dose 60+ series) [facility] Start: 1998 SHINGRIX VACCINE (1 of 2) SHINGRIX VACCINE (1 of 2) [facility] Start: 1993 COLOGUARD (FIT-DNA) COLOGUARD (FIT-D NA) [facility] Start: 1993 Colonoscopy COLONOSCOPY [facility] Start: 1993 COLORECTAL CANCER SCREENING COLORECTAL CANCER SCREENING [facility] Start: [address] COLONOGRAPHY [facility] Start: 1993 DIABETES SCREEN DIABETES SCREEN [facility] Start: 1993 FECAL OCCULT BLOOD FECAL OCCULT BLOO D [facility] Start: 1993 Lipid 1996 panel - S hilda or Plasma Lipid Screening [facility] Start: 1993 Lipid panel Lipid Screening [facility] Start: 1993 LIPID SCREEN LIPID SCREEN [facility] Start: 1993 Screening for malign ant neoplasm of colon [facility] Start: 1993 SIGMOIDOSCOPY SIGMOIDOSCOPY [facility] Start: 1988 Mammography [facility] Start: 1967 Urine microalbumin profile [facility] Start: 1967 Urine screening for protein Diabetes: Urine Protein Screening [facility] Start: 1966 Annual PCP Team Creative Director gustavo Disease Visit Annual PCP Team Chronic Disease Visit [facility] Start: 1966 Anxiety Screening Anxiety Screening [facility] Start: 1966 Depression Screening Depression Scre ening [facility] Start: 1966 HEPATITIS C SCREENING HEPATITIS C [facility] Start: 1966 Hepatitis C screening Hepatitis C [facility] Start: 1958 Glaucoma screening Diabetes: R etinopathy Screening [facility] Start: 06-29-1949 COVID-19 VACCINE (#1) COVID-19 VACCI NE (#1) [facility] Start: 1948 Hemoglobin A1c measurement Diabetes: Hemoglobin A1C [facility] Start: 1948 Screening for malign ant neoplasm of colon [facility] Acetylcholine recept or blocking Ab/Acetylcholine Ab.total in Serum [facility] Bacteria identified in Urine by Culture [facility] MONOCLONAL PROTEIN, SERUM (BLOOD) MONOCLONAL PROTEIN, SERUM (BLOOD) Lab Routine Anemia, unspecified type 10/01/2022 12:19 PM EST [facility] Work Phone: Muscle specific rece ptor tyrosine kinase Ab [Units/volume] in Serum by Immunoassay [facility] Patient Education [facility] Work Phone: Patient referral [facility] Work Phone: PROTEIN ELECTROPHORE SIS SERUM W/INTERP PROTEIN ELECTROPHORESIS SERUM W/INTERP Lab Routine Anemia, unspecified type 10/01/2022 12:19 PM EST [facility] Work Phone: Renal function 2000 panel - Serum or Plasma [facility] Renal function 1999 panel - Serum or Plasma [facility] Renal function 2000 panel - Serum or Plasma [facility] US Kidney - [facility] Varicella zoster vir us DNA [Presence] in Cerebral spinal fluid by DIPESH with probe detection [facility] Immunizations Immunization Date Immunization Notes Care Provider Enrique kaur 08-24-2024 influenza virus vacc ine, unspecified formulation Verónica Ugarte [facility] 11-25-2023 influenza (HD-IIV4) vaccine, age 65+ yr, high dose, quadrivalent, PF (FLUZONE HIGH-DOSE) Daksha Bridges PA-C Work Phone: [facility] 11-25-2023 influenza virus vacc ine, unspecified formulation Nisa Shepherd [facility] 08-27-2022 influenza virus vacc ine, unspecified formulation Nisa Shepherd [facility] 08-27-2022 influenza, high-dose , quadrivalent vaccine (FLUZONE HIGH DOSE QUADRIVALENT) Henry Walker MD Work Phone: [facility] 09-26-2021 influenza virus vacc ine, unspecified formulation Nisa Shepherd [facility] 09-26-2021 influenza, high-dose , quadrivalent vaccine (FLUZONE HIGH DOSE QUADRIVALENT) Henry Walker MD Work Phone: [facility] 08-13-2021 SARS-CoV-2 (COVID-19 ) mRNA BNT-162b2 vax Nisa Shepherd [facility] Comment on above: Result Comment: 2021: [id number] 02-05-2021 SARS-CoV-2 (COVID-19 ) mRNA BNT-162b2 vax Nisa Shepherd [facility] 01-14-2021 SARS-CoV-2 (COVID-19 ) mRNA BNT-162b2 vax Nisa Shepherd [facility] 08-16-2018 influenza nasal, unspecified formulation Henry Walker MD Work Phone: [facility] 08-16-2018 influenza virus vacc ine, unspecified formulation Nisa Ruth [facility] 08-16-2018 influenza, injectabl e, quadrivalent, preservative free Daksha Bridges PA-C Work Phone: [facility] 08-16-2018 pneumococcal polysaccharide vaccine, 23 valent Nisa Shepherd [facility] 09-18-2016 influenza virus vacc ine, unspecified formulation Nisa Shepherd [facility] 09-18-2016 influenza, high dose seasonal, preservative-free Henry Walker MD Work Phone: [facility] 10-17-2015 influenza virus vacc ine, unspecified formulation Nisa Shepherd [facility] 10-17-2015 influenza, seasonal, injectable Henry Walker MD Work Phone: [facility] Payers Date Payer Category Payer Unknown [id number] 2024 Self-pay [id number] 2023 Medicare [id number] 2023 Medicare (Managed Care) [facility] [id number] 2023 [facility] Health Insurance [facility] HMO [id number] 2023 Medicare [id number] 2021 Unknown [id number] 1.13.159.2. [id number] 1959 Unknown [id number] 1948 Unknown [id number] 2.16.840.1.852933.3.579.2. 593 1948 Unknown [id number] 2.16.840.1.700302.3.579.2. 593 1948 Unknown [id number] 2.16.840.1.403504.3.579.2. 593 1948 Unknown [id number] 2.16.840.1.375666.3.579.2. 593 1948 Unknown [id number] 2.16.840.1.996327.3.579.2. 593 1948 Unknown [id number] 2.16.840.1.494323.3.579.2. 593 1948 Unknown [id number] 2.16.840.1.818026.3.579.2. 356 1948 Unknown [id number] 2.16.840.1.242041.3.579.2. 356 1948 Unknown [id number] 2.16.840.1.138255.3.579.2. 727 1948 Unknown [id number] 2.16.840.1.347134.3.579.2. 727 1948 Unknown [id number] 2.16.840.1.979553.3.579.2. 727 1948 Unknown [id number] 2.16.840.1.769702.3.579.2. 196 1948 Unknown [id number] 2.16.840.1.992471.3.579.2. 196 1948 Unknown [id number] 2.16.840.1.262407.3.579.2. 196 1948 Unknown [id number] 2.16.840.1.568127.3.579.2. 1259 1948 Unknown [id number] 2.16.840.1.903346.3.579.2. 1259 1948 Unknown [id number] 2.16.840.1.898143.3.579.2. 1259 1948 Unknown [id number] 2.16.840.1.866448.3.579.2. 1259 1948 Unknown [id number] 2.16.840.1.000248.3.579.2. 1259 1948 Unknown [id number] 2.16.840.1.612516.3.579.2. 727 Medicaid [id number] Medicare [id number] Medicare Medicare [id number] Unknown HCAP/HFA/FAP Active [id number] Unknown [id number] 2.16.840.1.749426.3.579.2. 531 Unknown [id number] 2.16.840.1.222005.3.579.2. 531 Unknown [id number] 2.16.840.1.881811.3.579.2. 531 Unknown [id number] 2.16.840.1.507472.3.579.2. 531 Unknown [id number] 2.16.840.1.783955.3.579.2. 531 Unknown [id number] 2.16.840.1.344770.3.579.2. 531 Unknown [id number] 2.16.840.1.346297.3.579.2. 531 Unknown [id number] 2.16.840.1.375245.3.579.2. 531 Unknown [id number] 2.16.840.1.342939.3.579.2. 531 Social History Date Type Detail Facility Start: 12-26-2017 End: 07-21-2024 Tobacco smoking status VAIS Never smoked tobacco (finding) [facility] Start: 1950 Sex Assigned At Female [facility] status [facility] Start: 05-01-2023 End: 07-24-2023 [facility] Start: 09-26-2022 End: 10-01-2022 Tobacco use and exposure Smokeless tobacco non-user [facility] Start: 09-26-2022 Alcohol intake Ex-drinker (finding) [facility] Start: 1950 Sex Assigned At Not on file [facility] History of tobacco use Passive smoker [facility] Start: 10-01-2022 End: 10-07-2024 Alcohol intake Lifetime non-drinker (finding) [facility] Start: 09-21-2022 End: 10-16-2022 Exposure to SARS-CoV-2 (event) Not sure [facility] Start: 05-01-2023 End: 07-24-2023 History of Social function [facility] Start: 03-29-2024 End: 03-06-2025 Alcoholic beverage intake Defer [facility] Start: 02-09-2024 Alcohol Comment caffeine intak e: 1-2 cups per day [facility] Start: 01-11-2024 Gender identity Identifies as female gender (finding) [facility] Start: 01-11-2024 Sexual orientation Choose not to dis close [facility] Start: 01-19-2022 End: 12-16-2024 Sex Female (finding) [facility] Sexual Orientation [facility] Goals Date Patient Goal Desired Activity /State Functional Status Date Assessment Result Facility 03-30-2025 Functional Status N/A [facility] 09-29-2024 Functional Status N/A [facility] 07-22-2024 Functional status Patient at Baseline [facility] Work Phone: 07-21-2024 Functional status Patient at Baseline [facility] Work Phone: 03-28-2024 Functional Status N/A [facility] 12-07-2023 Functional Status N/A [facility] 04-15-2023 Functional Status N/A [facility] 03-13-2023 Functional status Patient at Baseline [facility] Work Phone: 03-11-2023 Functional status Disability Sta tus Patient at Baseline [facility] Work Phone: 12-24-2022 Functional Status N/A [facility] 09-02-2022 Functional Status No [facility] 06-12-2022 Functional Status N/A [facility] Mental Status Date Assessment Result Facility 07-22-2024 Cognitive function Cognitive Sta tus Patient at Baseline [facility] Work Phone: 07-21-2024 Cognitive function Cognitive Sta tus Patient at Baseline [facility] Work Phone: 03-13-2023 Cognitive function Cognitive Sta s Patient at Baseline [facility] Work Phone: Clinical Notes 06-12-2022 to 06-07-2025 Jenny Watson MA - 06/07/2025 1:30 PM Daksha Heredia PA-C - 04/25/2025 11:00 AM EDTTelephone Encounter - Sean, Stacey - 04/11/2025 9:59 AM KARO Arreaga - 03/06/2025 10:00 AM EDT Note Date & Type Note Facility 06-07-2025 History of Present illness Narrative Patient was in today to have hearing aids checked. She was accompanied by her brother, Rafael who states she cannot hear anything. Patient has indicated in the past that her family complains she cannot hear. When patient arrived at the appointment she did not have aids fully inserted in her ear. I cleaned them and checked them. I added retention lines to both aids. Patient was able to insert aids fully into ears at appointment. I checked settings and made some slight adjustments to MPO. Patient was able to respond to questions with no visual clues. I added the vera to patient's phone and reviewed all features. Particularly using directionality when in large group family situations. Patient indicated understanding. I did counselor/art therapist the patient and her brother on processing and getting patient's attention before talking to her. She will continue as needed. Cosigned by BETH Hodgson at 06/08/2025 11:43 AM EDT documented in this encounter [facility] 04-25-2025 History of Present illness Narrative Hematology Progress Note PATIENT NAME: Anh Tejeda CLINIC NO.: [id number] ATTENDING PHYSICIAN: Henry Walker MD DATE OF SERVICE: 04/25/2025 This note was copied from prior heme/onc encounter from 04/07. The patient's medications, allergies, past medical/surgical hx, family hx, ROS, and physical exam have all been reviewed and updated as appropriate. The interval history and assessment/plan content have been modified and are specific to today's (04/25/2025) purpose for the visit. CHIEF COMPLAINT: Follow up for anemia Diagnosis: NAINA Stage 3a CKD Treatment: Venofer x 3 doses 10/2022, again in January 2024 Interval History: Patient with CKD presents for evaluation of anemia. In December, hemoglobin was 11 g/dL. In March, hemoglobin decreased to 10 g/dL. Recent labs show hemoglobin returned to 11 g/dL. Iron levels were normal, with elevated ferritin. Folate and B12 levels were within normal limits. Thyroid function tests were normal. Haptoglobin was normal, and reticulocyte count was elevated, indicating active bone marrow function. EPO level was high, suggesting adequate production by the kidneys. M protein concentration was negative, ruling out myeloma. Patient reports increased sensitivity to cold over the past few weeks. Denies issues with appetite, early satiety, or night sweats. Not currently on blood thinners. Current Outpatient Medications Medication Sig baclofen 10 mg tablet Take 5 mg by mouth once daily. loratadine (CLARITIN) 5 mg/5 mL syrup Take 5 mg by mouth as needed for cold/allergy symptoms. amoxicillin-clavulanate potassium (AUGMENTIN) 875-125 mg per tablet (Patient not taking: Reported on 04/07/2025) pioglitazone (ACTOS) 15 mg tablet diphenhydrAMINE HCl (CHILDREN'S BENADRYL ALLERGY) 12.5 mg chewable tablet 25 mg. (Patient not taking: Reported on 04/07/2025) FARXIGA 10 mg tablet TAKE 1 TABLET BY MOUTH EVERYDAY FOR DIABETES (Patient not taking: Reported on 04/07/2025) resmetirom (REZDIFFRA) 80 mg tablet once daily. allopurinol (ZYLOPRIM) 300 mg tablet 300 mg. JANUVIA 50 mg tablet Take 1 tablet by mouth every afternoon. albuterol HFA (PROVENTIL HFA, VENTOLIN HFA) 90 mcg/actuation inhaler INHALE 2 PUFFS BY MOUTH EVERY 4 HOURS NEEDED FOR COUGH (Patient not taking: Reported on 04/07/2025) magnesium oxide 400 mg magnesium tab Take [...] Drug use: Not Currently REVIEW OF SYSTEMS Constitutional: (-) night sweats Gastrointestinal: (-) decreased appetite Endocrine: (+) cold intolerance PHYSICAL EXAMINATION: BP 158/78 Pulse 84 Temp 36.6 C (97.9 F) (Temporal) Resp 18 Ht 158 cm (5' 2.21 ) Wt 100.9 kg (222 lb 7.1 oz) SpO2 94% BMI 40.42 kg/m ECOG PS: 1 No exam LABS: Glucose (mg/dL) Date Value 04/18/2025 154 Potassium (mmol/L) Date Value 04/18/2025 4.9 Sodium (mmol/L) Date Value 04/18/2025 140 Chloride (mmol/L) Date Value 04/18/2025 102 CO2 (mmol/L) Date Value 04/18/2025 28 Creatinine (mg/dL) Date Value 04/18/2025 1.16 BUN (mg/dL) Date Value 04/18/2025 33 Anion Gap (mmol/L) Date Value 04/18/2025 10 Calcium, Total (mg/dL) Date Value 04/18/2025 10.0 Protein, Total (g/dL) Date Value 04/18/2025 6.4 04/18/2025 6.2 Albumin (g/dL) Date Value 04/18/2025 4.2 Bilirubin, Total (mg/dL) Date Value 04/18/2025 0.8 Alkaline Phosphatase (U/L) Date Value 04/18/2025 157 AST (U/L) Date Value 04/18/2025 18 ALT (U/L) Date Value 04/18/2025 17 WBC Date Value Ref Range Status 04/18/2025 5.65 3.70 - 11.00 k/uL Final RBC Date Value Ref Range Status 04/18/2025 3.73 (L) 3.90 - 5.20 m/uL Final Hemoglobin Date Value Ref Range Status 04/18/2025 11.0 (L) 11.5 - 15.5 g/dL Final Hematocrit Date Value Ref Range Status 04/18/2025 32.9 (L) 36.0 - 46.0 % Final MCV Date Value Ref Range Status 04/18/2025 88.2 80.0 - 100.0 fL Final MCH Date Value Ref Range Status 04/18/2025 29.5 26.0 - 34.0 pg Final MCHC Date Value Ref Range Status 04/18/2025 33.4 30.5 - 36.0 g/dL Final RDW-CV Date Value Ref Range Status 04/18/2025 16.4 (H) 11.5 - 15.0 % Final Platelet Count Date Value Ref Range Status 04/18/2025 136 (L) 150 - 400 k/uL Final MPV Date Value Ref Range Status 04/18/2025 9.0 9.0 - 12.7 fL Final Abs Neut Date Value Ref Range Status 04/18/2025 3.77 1.45 - 7.50 k/uL Final Lymphocytes % Date Value Ref Range Status 04/18/2025 24.8 % Final Abs Lymph Date Value Ref Range Status 04/18/2025 1.40 1.00 - 4.00 k/uL Final Monocytes % Date Value Ref Range Status 04/18/2025 6.4 % Final Abs [place] Date Value Ref Range Status 04/18/2025 0.36 <0.87 k/uL Final Abs Eosin Date Value Ref Range Status 04/18/2025 0.09 <0.46 k/uL Final Basophils % Date Value Ref Range Status 04/18/2025 0.2 % Final Abs Baso Date Value Ref Range Status 04/18/2025 <0.03 <0.11 k/uL Final PATH: IMAGING: ASSESSMENT [...] Most recent dose of Venofer was 01/2024. 1. Anemia, unspecified type (D64.9) Iron deficiency anemia, unspecified iron deficiency anemia type (D50.9) Hemoglobin levels fluctuated from 11 g/dL in December to 10 g/dL in March, then returned to 11 g/dL upon recent re-evaluation. Comprehensive workup including iron studies, folate, B12, thyroid function, haptoglobin, reticulocyte count, erythropoietin level, and M protein concentration revealed no underlying deficiencies or pathological processes. Iron levels are normal, and ferritin is elevated, indicating no need for iron supplementation. Reticulocyte count is appropriately elevated, suggesting adequate bone marrow response. Erythropoietin level is high, indicating sufficient renal production. - Monitor hemoglobin levels; no intervention required unless hemoglobin drops below 9 g/dL. - Scheduled follow-up and repeat labs in July to reassess hemoglobin levels. 2. Stage 3b chronic kidney disease (HCC) (N18.32) Anemia in stage 3a chronic kidney disease (HCC) (N18.31) Chronic kidney disease likely contributing to mild anemia. Renal function remains stable, and erythropoietin production is adequate. - Continue regular monitoring of renal function. - Follow-up with probation and patrol agent Dr. Giles in June. 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 Should this worsen, especially in the setting of anemia with normal iron stores, would need to consider further workup. Platelets [id number] 4. Polyneuropathy: negative SPEP/MPA in 2021. Some improvement with carpal tunnel repair. Return in 3 months with repeat labs Daksha Bridges PA-C CC: Nisa Shepherd CNP I spent a total of 20 minutes on the date of the service which included preparing to see the patient, [id number] patient care, completing clinical documentation, performing a medically appropriate examination, counseling and educating the patient/family/caregiver, ordering medications, tests, or procedures, independently interpreting results (not separately reported), communicating results to the patient/family/caregiver, and care coordination (not separately reported). documented in this encounter [facility] 04-25-2025 Note HNO ID: [id number] Author: DAKSHA BRIDGES PA-C Service: ? Author Type: Physician Cutting Table Operator Type: Progress Notes Filed: 04/25/2025 11:19 Note Text: Hematology Progress Note PATIENT NAME: Anh Tejeda [facility] NO.: [id number] ATTENDING PHYSICIAN: Henry Walker MD DATE OF SERVICE: 04/25/2025 This note was copied from prior heme/onc encounter from 04/07. The patient's medications, allergies, past medical/surgical hx, family hx, ROS, and physical exam have all been reviewed and updated as appropriate. The interval history and assessment/plan content have been modified and are specific to today's (04/25/2025) purpose for the visit. CHIEF COMPLAINT: Follow up for anemia Diagnosis: NAINA Stage 3a CKD Treatment: Venofer x 3 doses 10/2022, again in January 2024 Interval History: Patient with CKD presents for evaluation of anemia. In December, hemoglobin was 11 g/dL. In March, hemoglobin decreased to 10 g/dL. Recent labs show hemoglobin returned to 11 g/dL. Iron levels were normal, with elevated ferritin. Folate and B12 levels were within normal limits. Thyroid function tests were normal. Haptoglobin was normal, and reticulocyte count was elevated, indicating active bone marrow function. EPO level was high, suggesting adequate production by the kidneys. M protein concentration was negative, ruling out myeloma. Patient reports increased sensitivity to cold over the past few weeks. Denies issues with appetite, early satiety, or night sweats. Not currently on blood thinners. Current Outpatient Medications Medication Sig baclofen 10 mg tablet Take 5 mg by mouth once daily. loratadine (CLARITIN) 5 mg/5 mL syrup Take 5 mg by mouth as needed for cold/allergy symptoms. amoxicillin-clavulanate potassium (AUGMENTIN) 875-125 mg per tablet (Patient not taking: Reported on 04/07/2025) pioglitazone (ACTOS) 15 mg tablet diphenhydrAMINE HCl (CHILDREN'S BENADRYL ALLERGY) 12.5 mg chewable tablet 25 mg. (Patient not taking: Reported on 04/07/2025) FARXIGA 10 mg tablet TAKE 1 TABLET BY MOUTH EVERYDAY FOR DIABETES (Patient not taking: Reported on 04/07/2025) resmetirom (REZDIFFRA) 80 mg tablet once daily. allopurinol (ZYLOPRIM) 300 mg tablet 300 mg. JANUVIA 50 mg tablet Take 1 tablet by mouth every afternoon. albuterol HFA (PROVENTIL HFA, VENTOLIN HFA) 90 mcg/actuation inhaler INHALE 2 PUFFS BY MOUTH EVERY 4 HOURS NEEDED FOR COUGH (Patient not taking: Reported on 04/07/2025) magnesium oxide 400 mg magnesium tab Take [...] Drug use: Not Currently REVIEW OF SYSTEMS Constitutional: (-) night sweats Gastrointestinal: (-) decreased appetite Endocrine: (+) cold intolerance PHYSICAL EXAMINATION: BP 158/78 Pulse 84 Temp 36.6 ?C (97.9 ?F) (Temporal) Resp 18 Ht 158 cm (5' 2.21 ) Wt 100.9 kg (222 lb 7.1 oz) SpO2 94% BMI 40.42 kg/m? ECOG PS: 1 No exam LABS: Glucose (mg/dL) Date Value 04/18/2025 154 Potassium (mmol/L) Date Value 04/18/2025 4.9 Sodium (mmol/L) Date Value 04/18/2025 140 Chloride (mmol/L) Date Value 04/18/20 (more content not included)... [facility] 04-11-2025 Telephone encounter Note Spoke to Anh, labs 04/18 at 1130 and follow up 04/25 at 11am. [facility] 04-11-2025 Miscellaneous Notes Spoke to Anh, labs / at 1130 and follow up 04/25 at 11am. Daksha wants labs in the next 1-2 weeks and follow up 1 week after they are drawn to review results. Samantha Mcmahan RN Patient is scheduled for 06/28 now, is that ok or does she need moved up? Pt aware and agreeable to plan of care. She denies questions, needs or concerns at this time. PSS: Please call to schedule labs /follow up per MM below. Samantha Mcmahan RN documented in this encounter [facility] 04-11-2025 Telephone encounter Note Daksha wants labs in the next 1-2 weeks and follow up 1 week after they are drawn to review results. Samantha Mcmahan RN [facility] 04-11-2025 Telephone encounter Note Patient is scheduled for 06/28 now, is that ok or does she need moved up? [facility] 04-11-2025 Telephone encounter Note Pt aware and agreeable to plan of care. She denies questions, needs or concerns at this time. PSS: Please call to schedule labs /follow up per MM below. Samantha Mcmahan RN [facility] 04-07-2025 Note HNO ID: [id number] Author: DAKSHA BRIDGES PA-C Service: ? Author Type: Physician Cutting Table Operator Type: Progress Notes Filed: 04/07/2025 14:52 Note Text: Hematology Progress Note PATIENT NAME: Anh [facility] NO.: [id number] ATTENDING PHYSICIAN: Henry Walker MD DATE OF SERVICE: 01/06/2025 This note was copied from prior heme/onc encounter from 07/15/2024. The patient's medications, allergies, past medical/surgical hx, family hx, ROS, and physical exam have all been reviewed and updated as appropriate. The interval history and assessment/plan content [...] EXAMINATION: BP 130/69 Pulse 74 Temp 36.1 ?C (97 ?F) (Temporal) Resp 18 Ht 158 cm (5' 2.21 ) Wt 101.1 kg (222 lb 14.2 oz) SpO2 97% BMI 40.50 kg/m? ECOG PS: 1 General: Alert and (more content not included)... [facility] 03-06-2025 History of Present illness Narrative Images from the original note were not included. Subjective Anh Tejeda is a 74 y.o. year old female Chief Complaint Patient presents with Transient Ischemic Attack Past Medical History: Diagnosis Date Anemia Arthritis Bronchitis Cataract COVID-19 Diabetes (CMS/HCC) Diabetes (CMS/HCC) Excessive or frequent menstruation Fibromyalgia Gout H/O psychiatric care Hypertension (CMS/HCC) Measles Mumps Pneumonia Skin cancer Tonsillitis Past Surgical History: Procedure Laterality Date ABDOMINAL DEBRIDEMENT 12/29/2022 Debridement and closure of an abdominal wound- AVV CARPAL TUNNEL RELEASE Right 02/29/2024 JAB CATARACT EXTRACTION 2015 CHOLECYSTECTOMY 1979 COLONOSCOPY HYSTERECTOMY 2013 KNEE SURGERY Right Procedure:Right knee arthroscopy SBS;Disease: OTHER SURGICAL HISTORY Procedure:LVB-#6;Disease: OTHER SURGICAL HISTORY 2001 Procedure:resection of submucosal fibroid/thermal balloon ablation;Disease:Excessive or frequent menstruation REFRACTIVE SURGERY 2018 TRIGGER FINGER RELEASE Right 02/29/2024 JAB Family History Problem Relation Name Age of Onset Diabetes Mother Hypertension Mother Heart disease Mother Stroke Mother Cancer Mother Cancer Father Hypertension Father Heart disease Brother Stroke Brother Diabetes Brother Hypertension Brother Social History Tobacco Use Smoking status: Never Smokeless tobacco: Never Substance Use Topics Alcohol use: Defer Comment: caffeine intake: 1-2 cups per day HPI SYNCOPE -HX of TIA -on ASA -she denies any new signs or symptoms of a stroke -she denies any recent episodes of syncope -occasional lightheadedness -more with position changes and when she is standing -admits imbalance -denies any falls but admits to tripping COLTEN -she states that she is not sleeping well -some nights are better than others -states she uses a CPAP nightly -hours vary depending on the kind of night she has -not sleeping well due to leg pain CTS -continues to have N/T in bilateral hands -the pain is more in her thumbs -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 Respiratory: Negative for cough and shortness of breath. Cardiovascular: Negative for chest pain and palpitations. Gastrointestinal: Negative for nausea and vomiting. Musculoskeletal: Positive for back pain. Negative for neck pain. Neurological: Positive for dizziness, weakness, light-headedness and numbness. Negative for tremors and headaches. Objective Visit Vitals BP 154/68 Ht 5' 1 Wt 217 lb BMI 41.00 kg/m OB Status Unknown Smoking Status Never BSA 2.06 m GENERAL Apical RRR, no murmur Neurological Exam Mental Status Awake, alert and oriented to person, place and time. Recent and remote memory are intact. Speech is normal. Language is fluent with no aphasia. Attention and concentration are normal. Fund of knowledge is appropriate for level of education. Cranial Nerves CN II: Visual navarrete full to confrontation. CN III, IV, : Extraocular movements intact bilaterally. Normal lids and orbits bilaterally. Pupils equal round and reactive to light bilaterally. CN V: Facial sensation is normal. CN VII: Full and symmetric facial movement. CN VIII: Hearing is normal. CN IX, X: Palate elevates symmetrically. Normal gag reflex. CN XI: Shoulder shrug strength is normal. CN XII: Tongue midline without atrophy or fasciculations. Sensory Light touch is normal in upper and lower extremities. Temperature is normal in upper and lower extremities. Vibration abnormality: Decreased at the ankle and absent at the great toe bilaterally. Coordination Right: [id number]-[id number] normal. Rapid alternating movement normal.Left: [id number] normal. Rapid alternating movement normal. Gait Casual gait is normal including stance, stride, and arm swing. Ambulaters with a cane. Able to rise from the chair without usinh her arms. Motor Examination RUE Strength deltoid, biceps, triceps, wrist extensors, wrist extensors, wrist flexor, senior data mining analyst strength 5/5. LUE Strength deltoid, biceps, triceps, wrist extensors, wrist extensors, wrist flexor, senior data mining analyst strength 5/5. RLE Strength illopsoas, quadriceps, tibialis anterior, and gastrocnemius strength 5/5. LLE Strength illopsoas, quadriceps, tibialis anterior, and gastrocnemius strength 5/5. Tone Normal tone x4 extremities. Reflexes: RUE biceps reflex 2, brachioradialis reflex 2 LUE biceps reflex 2, brachioradialis reflex 2 RLE knee reflex 1 LLE knee reflex 1, Assessment and Plan 1. TIA - [place] [facility] [place] with fatigue and slurred speech. Stroke risk factors includes age, hyperlipidemia, hypertension, diabetes mellitus type 2, COLTEN and prior stroke seen on MRI. She presented with fluctuating fatigue, weakness and speech issues which was related to the initiation of Farxiga, per family. She was found to have CRESENCIO and hypomagnesemia which may have contributed as well. CT scan of the head that showed remote lacunar infarct of the left frontal periventricular white matter. MRI brain was unremarkable. She denies focal weakness. She has chronic diplopia. She has mal fitting dentures that affects the clarity of her speech. No new signs or symptoms of stroke. 2. Syncope - R55 - Patient was seen at [facility] 03/[place]/2023 for syncopal episode and slurred speech and evaluated for stroke. The syncopal episode occurred while she was trying to stand. She does have history of DM type 2, hypertension, hyperlipidemia. CTA of head and neck was nonacute. Brain MRI revealed no acute process. Echocardiogram revealed EF of 60-65%. Negative bubble study. No evidence of thrombus, mass, or vegetation. Most recent A1C 7.6%. LDL 51. Routine EEG revealed mild diffuse slowing of electrocerebral activity. She was also treated for UTI. Symptoms were suspected to be due to orthostatic hypotension with autonomic dysfunction and contributed by multiple BP medications. She has not had anymore syncopal episodes. 30 day holter monitor 03/13/2023 revealed no cardiac arrhythmias and normal sinus rhythms. No further syncope. 3. 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 She does have diabetes, which is likely the cause of the polyneuropathy. She is on gabapentin and requip which has lessened her neuropathic pain. She does not want to start new medications at this time and states PT is not covered by her insurance. She denies falls since her last visit but does not that her legs feel weak at times. She had MRI L spine done in January but I am unable to see this result. 4. Carpal tunnel syndrome of right wrist - G56.01, Patient also experiences chronic right handed paresthesia and pain into first digit of her 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 RUE EMG 03/31/2023 revealed a median neuropathy at or distal to the wrist, such as CTS, mild in degree electrically on the right. She had CTS release on 03/02/24 on the right. She has splints and remains on gabapentin. 5. COLTEN - She was not sleeping well due to her CPAP not working correctly and showing a leak. She is following with sleep specialist at [facility]. Evaluation at [facility] on 07/21/2024: 1. CBC showed mild anemia with hemoglobin 11.3 and hematocrit 32.0. Platelets were 141. 2. CMP showed acute kidney injury with BUN of 37 creatinine 1.55. Anion gap 16.1. AST and ALT were normal. Alkaline phosphate slightly high at 122. 3. Carotid ultrasound was negative for significant stenosis 4. Echocardiogram showed mild left ventricular hypertrophy with normal EF. Mild regurgitation. 5. Magnesium slightly low at 1.7 6. Acetylcholine modulating antibody normal 7. CT scan of the head was nonacute. Remote lacunar infarct in the left frontal periventricular white matter similar to prior exam. Chronic age-related changes were noted. 8. MRI scan of the brain showed age-related neurodegenerative changes with no acute intracranial pathology. Unchanged remote lacunar infarct in the left frontal periventricular white matter Diagnoses and all orders for this visit: Transient ischemic attack Polyneuropathy Syncope and collapse Carpal tunnel syndrome, bilateral upper limbs Plan 1. We will track down last MRI L spine from [facility]. 2. Continue gabapentin 300mg PO TID for neuropathic pain. 3. Conitnue Requip 2mg PO at bedtime for RLS/muscle cramps. 4. Continue aspirin 81mg PO daily for secondary stroke prevention. 5. Continue to follow with PCP for stroke risk factor management. 6. She will follow up with pain management for injections. 7. I counseled the patient on fall precautions. I discussed the high risk of trauma and debility associated with falls. Patient verbalized understanding. Follow up in 4 months documented in this encounter [facility] 01-09-2025 Telephone encounter Note Pt informed of MM message, once verified, using 2 patient identifiers. Patient denies any questions, needs or concerns at this time. Appointment verified. Samantha Mcmahan RN [facility] 01-09-2025 Miscellaneous Notes Pt informed of MM message, once verified, using 2 patient identifiers. Patient denies any questions, needs or concerns at this time. Appointment verified. Samantha Mcmahan RN documented in this encounter [facility] 01-06-2025 Note HNO ID: [id number] Author: DAKSHA BRIDGES PA-C Service: ? Author Type: Physician Cutting Table Operator Type: Progress Notes Filed: 01/06/2025 14:38 Note Text: Hematology Progress Note PATIENT NAME: [facility] NO.: [id number] ATTENDING PHYSICIAN: Henry Walker MD DATE OF SERVICE: 01/06/2025 This note was copied from prior heme/onc encounter from 07/15/2024. The patient's medications, allergies, past medical/surgical hx, family hx, ROS, and physical exam have all been reviewed and updated as appropriate. The interval history and assessment/plan content have been modified and are specific to today's (01/06/2025) purpose for the visit. CHIEF COMPLAINT: 3 month Follow up Diagnosis: NAINA Treatment: Venofer x 3 doses 10/2022, again in January 2024 Interval History: Anh returns for follow up. Overall she is feeling pretty good. Tired at times, but nothing out of the ordinary. Denies any ONEIL, swelling or PICA. She occasionally has dizziness with standing. Denies any bleeding. She is still having issues with itching from her new liver medication, and is seeing GI next month. Current Outpatient Medications Medication Sig diphenhydrAMINE HCl (CHILDREN'S BENADRYL ALLERGY) 12.5 mg chewable tablet 25 mg. FARXIGA 10 mg tablet TAKE 1 TABLET BY MOUTH EVERYDAY FOR DIABETES resmetirom (REZDIFFRA) 80 mg tablet once daily. allopurinol (ZYLOPRIM) 300 mg tablet 300 mg. JANUVIA 50 mg tablet Take 1 tablet by mouth every afternoon. albuterol HFA (PROVENTIL HFA, VENTOLIN HFA) 90 mcg/actuation inhaler INHALE 2 PUFFS BY MOUTH EVERY 4 HOURS NEEDED FOR COUGH magnesium oxide 400 mg magnesium tab Take [...] malaise or fevers. No night sweats. +fatigue mild HEENT: Negative for headaches, No changes in [...] muscle pain. SKIN: Negative for lesions, rash. +Itching HEMATOLOGY/LYMPHOLOGY Negative for prolonged bleeding, bruising easily, and swollen nodes. NEURO: Negative for numbness or tingling of hands/feet. No weakness. PHYSICAL EXAMINATION: BP 132/72 Pulse 80 Temp 36.6 ?C (97.8 ?F) (Temporal) Resp 18 Wt 96.6 kg (212 lb 15.4 oz) SpO2 97% BMI 38.70 kg/m? ECOG PS: 1 PHYSICAL EXAMINATION General: Alert and oriented, no distress, pleasant and cooperative. Heart: Regular, normal S1 and S2, no murmurs, rubs, or gallops Lungs: Clear to auscultation bilaterally Abdomen: Benign Extremities: Feet/ankles without edema, posterior tibial pulses full and symmetrical LABS: Glucose (mg/dL) Date Value 10/07/2024 361 Potassium (mmol/L) Date Value 10/07/2024 4.7 Sodium (mmol/L) Date Value (more content not included)... [facility] 01-06-2025 History of Present illness Narrative Hematology Progress Note PATIENT NAME: Anh Tejeda [facility] NO.: [id number] ATTENDING PHYSICIAN: Henry Walker MD DATE OF SERVICE: 01/06/2025 This note was copied from prior heme/onc encounter from 07/15/2024. The patient's medications, allergies, past medical/surgical hx, family hx, ROS, and physical exam have all been reviewed and updated as appropriate. The interval history and assessment/plan content have been modified and are specific to today's (01/06/2025) purpose for the visit. CHIEF COMPLAINT: 3 month Follow up Diagnosis: NAINA Treatment: Venofer x 3 doses 10/2022, again in January 2024 Interval History: Anh returns for follow up. Overall she is feeling pretty good. Tired at times, but nothing out of the ordinary. Denies any ONEIL, swelling or PICA. She occasionally has dizziness with standing. Denies any bleeding. She is still having issues with itching from her new liver medication, and is seeing GI next month. Current Outpatient Medications Medication Sig diphenhydrAMINE HCl (CHILDREN'S BENADRYL ALLERGY) 12.5 mg chewable tablet 25 mg. FARXIGA 10 mg tablet TAKE 1 TABLET BY MOUTH EVERYDAY FOR DIABETES resmetirom (REZDIFFRA) 80 mg tablet once daily. allopurinol (ZYLOPRIM) 300 mg tablet 300 mg. JANUVIA 50 mg tablet Take 1 tablet by mouth every afternoon. albuterol HFA (PROVENTIL HFA, VENTOLIN HFA) 90 mcg/actuation inhaler INHALE 2 PUFFS BY MOUTH EVERY 4 HOURS NEEDED FOR COUGH magnesium oxide 400 mg magnesium tab Take [...] malaise or fevers. No night sweats. +fatigue mild HEENT: Negative for headaches, No changes in [...] muscle pain. SKIN: Negative for lesions, rash. +Itching HEMATOLOGY/LYMPHOLOGY Negative for prolonged bleeding, bruising easily, and swollen nodes. NEURO: Negative for numbness or tingling of hands/feet. No weakness. PHYSICAL EXAMINATION: BP 132/72 Pulse 80 Temp 36.6 C (97.8 F) (Temporal) Resp 18 Wt 96.6 kg (212 lb 15.4 oz) SpO2 97% BMI 38.70 kg/m ECOG PS: 1 PHYSICAL EXAMINATION General: Alert and oriented, no distress, pleasant and cooperative. Heart: Regular, normal S1 and S2, no murmurs, rubs, or gallops Lungs: Clear to auscultation bilaterally Abdomen: Benign Extremities: Feet/ankles without edema, posterior tibial pulses full and symmetrical LABS: Glucose (mg/dL) Date Value 10/07/2024 361 Potassium (mmol/L) Date Value 10/07/2024 4.7 Sodium (mmol/L) Date Value 10/07/2024 137 Chloride (mmol/L) Date Value 10/07/2024 99 CO2 (mmol/L) Date Value 10/07/2024 27 Creatinine (mg/dL) Date Value 10/07/2024 1.33 BUN (mg/dL) Date Value 10/07/2024 33 Anion Gap (mmol/L) Date Value 10/07/2024 11 Calcium, Total (mg/dL) Date Value 10/07/2024 9.1 Protein, Total (g/dL) Date Value 10/07/2024 6.4 Albumin (g/dL) Date Value 10/07/2024 3.9 Bilirubin, Total (mg/dL) Date Value 10/07/2024 0.6 Alkaline Phosphatase (U/L) Date Value 10/07/2024 182 AST (U/L) Date Value 10/07/2024 21 ALT (U/L) Date Value 10/07/2024 17 WBC Date Value Ref Range Status 01/06/2025 5.38 3.70 - 11.00 k/uL Final RBC Date Value Ref Range Status 01/06/2025 3.67 (L) 3.90 - 5.20 m/uL Final Hemoglobin Date Value Ref Range Status 01/06/2025 11.0 (L) 11.5 - 15.5 g/dL Final Hematocrit Date Value Ref Range Status 01/06/2025 32.1 (L) 36.0 - 46.0 % Final MCV Date Value Ref Range Status 01/06/2025 87.5 80.0 - 100.0 fL Final MCH Date Value Ref Range Status 01/06/2025 30.0 26.0 - 34.0 pg Final MCHC Date Value Ref Range Status 01/06/2025 34.3 30.5 - 36.0 g/dL Final RDW-CV Date Value Ref Range Status 01/06/2025 15.8 (H) 11.5 - 15.0 % Final Platelet Count Date Value Ref Range Status 01/06/2025 117 (L) 150 - 400 k/uL Final MPV Date Value Ref Range Status 01/06/2025 8.8 (L) 9.0 - 12.7 fL Final Abs Neut Date Value Ref Range Status 01/06/2025 3.47 1.45 - 7.50 k/uL Final Lymphocytes % Date Value Ref Range Status 01/06/2025 27.0 % Final Abs Lymph Date Value Ref Range Status 01/06/2025 1.45 1.00 - 4.00 k/uL Final Monocytes % Date Value Ref Range Status 01/06/2025 5.9 % Final Abs [place] Date Value Ref Range Status 01/06/2025 0.32 <0.87 k/uL Final Abs Eosin Date Value Ref Range Status 01/06/2025 0.11 <0.46 k/uL Final Basophils % Date Value Ref Range Status 01/06/2025 0.2 % Final Abs Baso Date Value Ref Range Status 01/06/2025 <0.03 <0.11 k/uL Final PATH: IMAGING: ASSESSMENT [...] 01/2024. Her hemoglobin has dropped slightly to 11.0 today. Iron studies are pending. If stable, will plan to see in 3 months with repeat labs. Chronic kidney disease stage 3b--likely secondary to diabetes. Now with nephrology following DM2-- follow up with PCP Mild TCP: Continue to monitor. Should this worsen, especially in the setting of anemia with normal iron stores, would need to consider further workup. Platelets are 117 Polyneuropathy: negative SPEP/MPA. Some improvement with carpal tunnel repair. Return in 3 months with labs. Daksha Bridges PA-C CC: Nisa Shepherd CNP I spent a total of 21 minutes on the date of the service which included preparing to see the patient, [id number] patient care, completing clinical documentation, performing a medically appropriate examination, counseling and educating the patient/family/caregiver, ordering medications, tests, or procedures, independently interpreting results (not separately reported), communicating results to the patient/family/caregiver, and care coordination (not separately reported). documented in this encounter [facility] 01-02-2025 Telephone encounter Note Lab orders needed for upcoming appointment scheduled 01/06. Verenice Andres MA [facility] 01-02-2025 Miscellaneous Notes Lab orders needed for upcoming appointment scheduled 01/06. Verenice Andres MA documented in this encounter [facility] 11-14-2024 Evaluation note Diagnosis Onset Date Resolution Essential (primary) hypertension acute November 14, 024 12:57pm Insomnia acute November 14, 2024 12:57pm Obstructive sleep apnea acute D ec2023 12:57pm Restless leg syndrome acute Dec 2023 12:57pm Type 2 diabetes mellitus with diabetic chronic kidney disease acute November 14, 2024 12:57pm [facility] Work Phone: 1(656) 882-725612-30-2024 Evaluation note* Diagnosis Onset Date Resolution Status Admit Date Essential (primary) hypertension acu te November 14, 2024 12:57pm Insomnia acute November 14, 2024 12:57pm Obstructive sleep apnea acute D ec2023 12:57pm Restless leg syndrome acute Dec 2023 12:57pm Type 2 diabetes mellitus wit h diabetic chronic kidney disease acute November 14, 2024 12:57pm Anemia of renal disease acute F ebruary 2024 2:15pm Chronic kidney disease, stag e III (moderate) acute December 27, 2 025 2:15pm Hyperlipidemia acute December 172024 2:15pm Hypertension acute December 2:15pm Hypomagnesemia acute December 172024 2:15pm Secondary hyperparathyroidism acute December 27, 2024 2:15pm Type 2 diabetes mellitus wit h diabetic chronic kidney disease acute December 27, 2024 2:15pm [facility] Work Phone: 1(472) 571-817712-30-2024 Evaluation note* Diagnosis Onset Date Resolution Status Admit Date Essential (primary) hypertension acu te November 14, 2024 12:57pm Insomnia acute November 14, 2024 12:57pm Obstructive sleep apnea acute D ecember 2023 12:57pm Restless leg syndrome acute Dec emb2023 12:57pm Type 2 diabetes mellitus wit h diabetic chronic kidney disease acute November 14, 2024 12:57pm Anemia of renal disease acute F ebruary 2024 2:15pm Chronic kidney disease, stag e III (moderate) acute December 27, 2 025 2:15pm Hyperlipidemia acute December 172024 2:15pm Hypomagnesemia acute December 172024 2:15pm Secondary hyperparathyroidism acute December 27, 2024 2:15pm Type 2 diabetes mellitus wit h diabetic chronic kidney disease acute December 27, 2024 2:15pm Hypertensive chronic kidney disease with stage 1 through stage 4 chronic ki inactive December 2:15pm [facility] Work Phone: 1(899) 267-880011-25-2024 Telephone encounter Note* Telephone Encounter - Samantha Mcmahan RN - 10/10/2024 12:34 PM EST Pt informed of MM message, once verified, using 2 patient identifiers. Patient denies any questions, needs or concerns at this time. Appointment verified. Samantha Mcmahan RN [facility]11-25-2024 Miscellaneous Notes* Telephone Encounter - Samantha Mcmahan RN - 10/10/2024 12:34 PM EST Pt informed of MM message, once verified, using 2 patient identifiers. Patient denies any questions, needs or concerns at this time. Appointment verified. Samantha Mcmahan RN * Telephone Encounter - Daksha Bridges PA-C - 10/10/2024 11:45 AM EST Please call with normal iron levels Daksha Bridges PA-C [facility] encounter Note * Telephone Encounter - Daksha Bridges PA-C - 10/10/2024 11:45 AM EST Please call with normal iron levels Daksha Bridges PA-C [facility]11-22-2024 History of Present illness Narrative* Daksha Bridges PA-C - 10/07/2024 2:30 PM EST Hematology Progress Note PATIENT NAME: Anh Tejeda [facility] NO.: [id number] ATTENDING PHYSICIAN: Henry Walker MD DATE OF SERVICE: 10/07/2024 This note was copied from prior heme/onc encounter from 07/15/2024. The patient's medications, allergies, past medical/surgical hx, family hx, ROS, and physical exam have all been reviewed and updatedas appropriate. The interval history and assessment/plan content have been modified and are specific to today's (10/07/2024) purpose for the visit. CHIEF COMPLAINT: Follow up Diagnosis: NAINA Treatment: Venofer x 3 doses 10/2022, again in January 2024 Interval History: Anh returns for follow up. She isn't feeling too bad . She is now on rezdiffrafor her liver, but it is causing her to itch. Her doctor is having use benadryl for it and it is helping. Her energy level is fair. No shortness of breath or dizziness. Overall she feels pretty good. Current Outpatient Medications Medication Sig FARXIGA 10 mg tablet TAKE 1 TABLET BY MOUTH EVERYDAY FOR DIABETES resmetirom (REZDIFFRA) 80 mg tablet once daily. allopurinol (ZYLOPRIM) 300 mg tablet 300 mg. JANUVIA 50 mg tablet Take 1 tablet by mouth every afternoon. albuterol HFA (PROVENTIL HFA, VENTOLIN HFA) 90 mcg/actuation inhaler INHALE 2 PUFFS BY MOUTH EVERY 4 HOURS NEEDED FOR COUGH magnesium oxide 400 mg magnesium tab Take [...] malaise or fevers. No night sweats. +fatigue worse since starting farxiga HEENT: Negative for headaches, No changes in [...] of hands/feet. No weakness. PHYSICAL EXAMINATION: BP 144/75 Pulse 81 Temp 36.2 C (97.1 F) (Temporal) Resp 18 Ht 158 cm (5' 2.21 ) Wt 96.7 kg (213 lb 3 oz) SpO2 95% BMI 38.74 kg/m ECOG PS: 1 General: Alert and oriented, no distress, pleasant and cooperative. Heart: Regular, normal S1 and S2, no murmurs, rubs, or gallops Lungs: Clear to auscultation bilaterally Abdomen: Benign Extremities: Feet/ankles without edema, posterior tibial pulses full and symmetrical LABS: Glucose (mg/dL) Date Value 10/07/2024 361 Potassium (mmol/L) Date Value 10/07/2024 4.7 Sodium (mmol/L) Date Value 10/07/2024 137 Chloride (mmol/L) Date Value 10/07/2024 99 CO2 (mmol/L) Date Value 10/07/2024 27 Creatinine (mg/dL) Date Value 10/07/2024 1.33 BUN (mg/dL) Date Value 10/07/2024 33 Anion Gap (mmol/L) Date Value 10/07/2024 11 Calcium, Total (mg/dL) Date Value 10/07/2024 9.1 Protein, Total (g/dL) Date Value 10/07/2024 6.4 Albumin (g/dL) Date Value 10/07/2024 3.9 Bilirubin, Total (mg/dL) Date Value 10/07/2024 0.6 Alkaline Phosphatase (U/L) Date Value 10/07/2024 182 AST (U/L) Date Value 10/07/2024 21 ALT (U/L) Date Value 10/07/2024 17 WBC Date Value Ref Range Status 10/07/2024 5.18 3.70 - 11.00 k/uL Final RBC Date Value Ref Range Status 10/07/2024 3.90 3.90 - 5.20 m/uL Final Hemoglobin Date Value Ref Range Status 10/07/2024 11.6 11.5 - 15.5 g/dL Final Hematocrit Date Value Ref Range Status 10/07/2024 33.0 (L) 36.0 - 46.0 % Final MCV Date Value Ref Range Status 10/07/2024 84.6 80.0 - 100.0 fL Final MCH Date Value Ref Range Status 10/07/2024 29.7 26.0 - 34.0 pg Final MCHC Date Value Ref Range Status 10/07/2024 35.2 30.5 - 36.0 g/dL Final RDW-CV Date Value Ref Range Status 10/07/2024 15.1 (H) 11.5 - 15.0 % Final Platelet Count Date Value Ref Range Status 10/07/2024 126 (L) 150 - 400 k/uL Final Comment: Results checked and verified.No clot detected. MPV Date Value Ref Range Status 10/07/2024 9.8 9.0 - 12.7 fL Final Abs Neut Date Value Ref Range Status 10/07/2024 3.37 1.45 - 7.50 k/uL Final Lymphocytes % Date Value Ref Range Status 10/07/2024 25.5 % Final Abs Lymph Date Value Ref Range Status 10/07/2024 1.32 1.00 - 4.00 k/uL Final Monocytes % Date Value Ref Range Status 10/07/2024 5.4 % Final Abs Upshur Date Value Ref Range Status 10/07/2024 0.28 <0.87 k/uL Final Abs Eosin Date Value Ref Range Status 10/07/2024 0.17 <0.46 k/uL Final Basophils % Date Value Ref Range Status 10/07/2024 0.4 % Final Abs Baso Date Value Ref Range Status 10/07/2024 <0.03 <0.11 k/uL Final PATH: IMAGING: ASSESSMENT AND PLAN: Anh Tejeda is a 73 year old year old female past medical [...] dose of Venofer was 01/2024. Her hemoglobin remains stable at 11.6 today. Iron studies are pending. Repeat labs and follow up [id number]. Chronic kidney disease stage 3b--likely secondary to diabetes. Now with nephrology following DM2-- follow up with PCP Mild TCP: Continue to monitor. Should this worsen, especially in the setting of anemia with normal iron stores, would need to consider further workup. Platelets are 126 Polyneuropathy: negative SPEP/MPA. Some improvement with carpal tunnel repair. Return in 3 months with labs. Daksha Bridges PA-C CC: Nisa Shepherd CNP I spent a total of 20 minutes on the date of the service which included preparing to see the patient, [id number] patient care, completing clinical documentation, performing a medically appropriate examination, counseling and educating the patient/family/caregiver, ordering medications, tests, or p rocedures, independently interpreting results (not separately reported), communicating results to the patient/family/caregiver, and care coordination (not separately reported). [facility] NoteHNO ID: [id number] Author: DAKSHA BRIDGES PA-C Service: ? Author Type: Physician Cutting Table Operator Type: Progress Notes Filed: 10/07/2024 14:56 Note Text: Hematology Progress Note PATIENT NAME: Anh Tejeda [facility] NO.: [id number] ATTENDING PHYSICIAN: Henry Walker MD DATE OF SERVICE: 10/07/2024 This note was copied from prior heme/onc encounter from 07/15/2024. The patient's medications, allergies, past medical/surgical hx, family hx, ROS, and physical exam have all been reviewed and updated as appropriate. The interval history and assessment/plan content have been modified and are specific to today's (10/07/2024) purpose for the visit. CHIEF COMPLAINT: Follow up Diagnosis: NAINA Treatment: Venofer x 3 doses 10/2022, again in January 2024 Interval History: Anh returns for follow up. She isn't feeling too bad . She is now on rezdiffra for her liver, but it is causing her to itch. Her doctor is having use benadryl for it and it is helping. Her energy level is fair. No shortness of breath or dizziness. Overall she feels pretty good. Current Outpatient Medications Medication Sig FARXIGA 10 mg tablet TAKE 1 TABLET BY MOUTH EVERYDAY FOR DIABETES resmetirom (REZDIFFRA) 80 mg tablet once daily. allopurinol (ZYLOPRIM) 300 mg tablet 300 mg. JANUVIA 50 mg tablet Take 1 tablet by mouth every afternoon. albuterol HFA (PROVENTIL HFA, VENTOLIN HFA) 90 mcg/actuation inhaler INHALE 2 PUFFS BY MOUTH EVERY 4 HOURS NEEDED FOR COUGH magnesium oxide 400 mg magnesium tab Take [...] malaise or fevers. No night sweats. +fatigue worse since starting farxiga HEENT: Negative for headaches, No changes in [...] of hands/feet. No weakness. PHYSICAL EXAMINATION: BP 144/75 Pulse 81 Temp 36.2 ?C (97.1 ?F) (Temporal) Resp 18 Ht 158 cm (5' 2.21 ) Wt 96.7 kg (213 lb 3 oz) SpO2 95% BMI 38.74 kg/m? ECOG PS: 1 General: Alert and oriented, no distress, pleasant and cooperative. Heart: Regular, normal S1 and S2, no murmurs, rubs, or gallops Lungs: Clear to auscultation bilaterally Abdomen: Benign Extremities: Feet/ankles without edema, posterior tibial pulses full and symmetrical LABS: Glucose (mg/dL) Date Value 10/07/2024 361 Potassium (mmol/L) Date Value 10/07/2024 4.7 Sodium (mmol/L) Date Value 10/07/2024 137 Chloride (mmol/L) Date Value 10/07/2024 99 CO2 (mmol/L) Date Value (more content not included)...[facility]11-20-2024 History of Present illness Narrative* Jenny Watson MA - 10/05/2024 2:30 PM EST Patient was in today as she feels she can hear well but her family is still telling her she cannot hear. We discussed realistic expectations. I changed patient to an XS Closed dome. I adjusted aids for the new dome. Patient felt they seemed a bit louder and she could hear well. Again I emphansized the importance of getting one's attention before speaking when in a group. Patient will continue on an as needed basis. Cosigned by BETH Hodgson at 10/18/2024 9:35 AM EST documented in this encounterNortheast [facility] [id number] Progress note Author Ottoniel Bland [facility] July 22, 2024 2:19pm Note Date/Time July 22, 2024 2:18pm [facility] [address] [place] [address] Neurology Progress Note Signed Patient: Anh Tejeda MR#: [id number] : 1950 Acct:[id number] Age/Sex: 73 / F Adm Date: 4 Loc: 3T Room: [address] [place] [address] Type: ADM INOo Attending Dr: Comfort Monteiro MD Copies to: ~ Date of Service: 07/22/2024 Exam Physical Exam Vital Signs: Temp Pulse Resp BP Pulse Ox O2 Del Method 97.5 F L 64 18 119/74 98 Room Air 07/22/24 12:08 07/22/24 12:08 07/22/24 12:08 07/22/24 12:08 07/22/24 12:08 07/22/24 12:08 Objective Vital Signs Vital Signs: Vital Signs - 24 hr 07/21/24 15:32 07/21/24 19:44 07/21/24 20:00 Temperature 98 F 98.0 F Pulse Rate 80 Pulse Rate [Monitor] 70 Respiratory Rate 18 18 Blood Pressure 155/81 H Blood Pressure [Left Arm] 142/83 H 02 Sat by Pulse Oximetry 97 96 Oxygen Delivery Method Room Air Room Air Room Air 07/22/24 00:00 07/22/24 05:18 07/22/24 05:22 Temperature 98.1 F 98.0 F Pulse Rate 74 129 H 70 Pulse Rate [Monitor] Respiratory Rate 18 18 Blood Pressure 131/77 125/67 Blood Pressure [Left Arm] 02 Sat by Pulse Oximetry 95 94 L Oxygen Delivery Method Room Air Room Air 07/22/24 07:43 07/22/24 09:32 07/22/24 09:33 Temperature 97.5 F L 97.5 F L Pulse Rate 67 67 Pulse Rate [Monitor] Respiratory Rate 18 18 Blood Pressure 141/74 H 141/74 H Blood Pressure [Left Arm] 02 Sat by Pulse Oximetry 97 97 Oxygen Delivery Method Room Air Room Air Room Air 07/22/24 10:07 07/22/24 12:08 Temperature 97.5 F L Pulse Rate 64 Pulse Rate [Monitor] Respiratory Rate 18 Blood Pressure 117/72 119/74 Blood Pressure [Left Arm] 02 Sat by Pulse Oximetry 98 Oxygen Delivery Method Room Air Labs 07/22/24 05:59 07/22/24 05:59 Therapy Recommendations Therapy Recommendations: OT Recommendations OT Recommended Discharge Home Location PT Recommendations DC Physical Therapy Due To: No Skilled PT Needs,At Baseline PT Recommended Discharge Home Location ST Recommendations Liquid Consistency Thin Liquids Recommendation Solid Consistency Regular Solids Recommendations Meat Consistency Whole Meats Recommendations Medication Administration Whole Pills Dysphagia Swallow Precautions/ Sitting Upright (90 deg) Strategies Assessment/Plan (1) Slurred speech: Plan CONSULT REASON: Slurred speech SUBJECTIVE: Speech clearer today. She wonders if it could be the loose top plate of her dentures causing her to make sss and thh sounds excessively. Feels fatigued today due to waking up around 4am and was unable to fall back asleep. No other new symptoms. Nothing to add to ROS. EXAMINATION: In no distress. No deformities or trauma. Limbs seem well-perfused. No significant edema. Normal work of breathing. Visualized skin is generally intact and without lesions aside from age-related findings. Affect normal. Patient is alert and generally oriented. Attention normal. She is slurring herwords. Her speech is intelligible. No aphasia. Pupils are equal and small. Ocular motility is full. Gaze is conjugate. No nystagmus. Facial sensation isnormal. Hearing is normal. Facial strength is normal. Tongue is midline. Muscle bulk, tone, and strength are normal. No fatigability to upper extremity strength. No tremors. Reflexes normal throughout. Light touch is normal. Vibratory sensation is normal although diminished in her distal right lower extremity. No limb dysmetria or ataxia. DATA REVIEW: -CT head showed remote lacunar infarct in the left frontal periventricular whitematter -MRI brain without contrast appears unremarkable, radiology report pending -Serum magnesium mildly low ASSESSMENT: Fluctuating slurring of speech over the past 10 days or so. Unclear if this is atrue dysarthria issue or just changes in speech related to ill-fitting top denture plates. Also with fluctuating generalized bodily fatigue and weakness. Not cerebrovascular in origin. MRI of her brain does not appear to show any intracranial pathology. Given the fluctuating symptoms, seems unlikely but we will check antibodies associated with myasthenia gravis but my suspicion is low. PLAN: 1. Pending acetylcholine receptor antibodies and muscle specific kinase antibody - will be followed up on in clinic 2. Outpatient neurology follow up in 2-4 weeks 3. Okayfor discharge from my standpoint Documented By: Ottoniel Bland DO 07/22/24 1415 Signed By: <Electronically signed by Ottoniel Bland DO> 07/22/24 [facility] Work Phone: 1(286) 977-204009-06-2024 Discharge summary Author Comfort Monteiro [facility] July 22, 2024 1:39pm Note Date/Time July 22, 2024 1:26pm [facility] [address] [place], [place] [id number] Discharge Summary Signed Patient: Anh Tejeda MR#: [id number] : 1950 Acct:[id number] Age/Sex: 73 / F Adm Date: 4 Loc: 3T Room: 3L6855-[address]: Comfort Monteiro MD Copies to: Vinay Matta,DO Comfort Monteiro MD~ Providers Date of Discharge: 07/22/24 Discharging Provider: Comfort Monteiro Primary Care Provider: Vinay Matta Consults: 07/21/24 12:34 Consult to Neurology Routine Comment: Consulting Provider: Ottoniel Bland Reason For Exam: slurred speech, r/o CVA Has Provider Been Notified: Yes Date of Notification: 07/21/24 Time of Notification: 15:08 Consult to Occupational Therapy Routine Comment: Physician Instructions: Consult to OT for:: Evaluation and Treat Consult to Physical Therapy Routine Comment: Physician Instructions: Consult to PT for:: Evaluation and Treat Consult to Speech Therapy Routine Comment: Reason for ST Consult: Bedside Swallow Eval & Tx Diet per ST Recommendations: Yes Modified Barium Swallow Study, If Recommended: Yes Discharge Diagnosis (1) Slurred speech: Final Diagnosis Final Discharge Diagnosis: Fluctuating slurring of speech for about 10 days CVA or other acute intracranial pathology was ruled out by MRI Summary Hospital Course Hospital course: Patient is a 73-year-old female with medical history of diabetes, CKD stage III and other comorbidities as listed below presented to the ER due to intermittent palpitations which has gotten worse this. Her brother stated per history and that patient was not able to express herself and had slurred speech, last known well about over a week ago. From the history it seems like this pain ongoing intermittent issue with her slurred speech, unable to express her words, denies any chest pain, dizziness, lightheadedness, near-syncope or syncope events or LOC. She denies history of stroke, she reports that she takes baby aspirin daily along with cholesterol medicine and other listed medications. Patient didvisit her PCP and states that she was recently started on Farxiga about a week or so ago which they thought she is having a reaction from it for which she heldit for the last couple days with no improvement but worsening in her symptoms. In the ER, patient presented hypertensive with initial blood pressure 200s over 90s, improved with IV hypertensive agents, patient stated that she did not takeher blood pressure medicine. Initial CT head showed remote lacunar infarct in the left frontal periventricular white matter similar to prior exam, no acute pathology. Decision was made to keep her for observation further evaluation andmanagement. During hospital course, patient underwent MRI of the brain with no evidence of acute pathology. Neurology was consulted, input appreciated. Patient was observed here, no further slurred speech or other new neurological deficits noted. During my encounter today, she appears alert and awake oriented x 3 communicating well. She still thinks Farxiga is the cause of her symptoms sinceshe started complaining of the above symptoms soon after started this medication, now that she has not taken it for about 3 days now she feels better and back to baseline. Advised to continue to hold Farxiga for now and follow-upwith her PCP to discuss alternative therapy. Continue to hold metformin as recommended per nephrology given her underlying CKD. Carotid Doppler was done which showed no hemodynamic significant stenosis. Blood pressure has much improved with her home regimen. Advised to continue with that and continue to follow-up with her PCP and nephrology as outpatient. Echocardiogram was orderedthan here, we will review her results to ensure no significant change from previous. Patient was evaluated by PT/OT who recommended home, swallow evaluation was done as well and diet was recommended as per ST. discussed with patient at bedside, all questions answered, patient in agreement and comfortablewith the plan. Condition Condition at Discharge: Stable Time Spent with Patient Time spent providing/coordinating discharge services (# min): 36 Discharge Plan Discharge Plan Patient Disposition: Home Activity: Ambulate as Tolerated Diet: Carb Count and Low-Sodium Instructions: Diabetes and diet, Know your Meds Prescriptions: Continued aspirin 81 mg Tablet 81 mg PO DAILY cyanocobalamin (vitamin B-12) [Vitamin B-12] 1,000 mcg Tablet 1,000 mcg PO DAILY atorvastatin 20 mg Tablet 20 mg PO DAILY lisinopril-hydrochlorothiazide 20-12.5 mg Tablet 1 tab PO DAILY glimepiride 2 mg Tablet 2 mg PO BID atenolol 50 mg Tablet 50 mg PO DAILY gabapentin 300 mg capsule 300 mg PO BID Rx Instructions: takes 1 in the afternoon and 2 before bedtime cholecalciferol (vitamin D3) [Vitamin D3] 25 mcg (1,000 unit) capsule 25 mcg PO DAILY ascorbate calcium (vitamin C) 500 mg tablet 500 mg PO DAILY allopurinol 300 mg tablet 300 mg PO DAILY Januvia 50 mg tablet 50 mg PO DAILY omeprazole 20 mg capsule,delayed release(DR/EC) 20 mg PO DAILY magnesium oxide 400 mg magnesium tablet 400 mg PO BID ropinirole 2 mg tablet 2 mg PO QHS Rezdiffra 80 mg tablet 80 mg PO DAILY Held furosemide 20 mg tablet 20 mg PO QAM Hold Instructions: Continue to hold, follow-up with PCP to restart Patient Comments: on hold by Dr Stewart dapagliflozin propanediol [Vinicioga] 10 mg tablet 10 mg PO DAILY Hold Instructions: Hold until seen by PCP. discuss alternative therapy Discontinued metformin 1,000 mg Tablet 1,000 mg PO BID Exam Physical Exam Vital Signs: Temp Pulse Resp BP Pulse Ox O2 Del Method 97.5 F L 64 18 119/74 98 Room Air 07/22/24 12:08 07/22/24 12:08 07/22/24 12:07/22/24 12:08 07/22/24 12:07/22/24 12:08 Narrative: Const General: cooperative HEENT Normal oropharyngeal mucosa without any ulcers or exudates Eyes: Conjunctiva normal Pulmonary Auscultation: clear to auscultation , no crackles, no wheezes Cardiovascular Rate: normal rate Rhythm: regular rhythm Heart Sounds: S1 normal, S2 normal and no murmurs GI Inspection: non-distended Palpation: soft, not firm and nontender. No rigidity or rebound. Deferred Neuro General: alert, awake and oriented x3. No obvious new focal deficit. No slurred speech, able to carry conversation. No obvious facial asymmetry. Strength 5/5 in upper and lower extremities. Musculoskeletal: normal range of motion Extrem General: no cyanosis, trace pedal edema Psych Appearance: appropriate affect. Grossly normal Diagnostic Studies Completed and Pending Studies Pending studies at discharge: 07/21/24 17:13 AChR Binding Abs, Serum Routine AChR Blocking Abs, Serum Routine AChR Modulating Abs, Serum Routine Musk Antibody Test Routine Labs on day of discharge: 07/22/24 11:18: POC Glucose 266 07/22/24 06:31: POC Glucose 165 07/22/24 05:59: Corrected WBC 5.4, Uncorrected WBC Count 5.4, RBC 3.73, Hgb 11.3L, Hct 32.0 L, MCV 85.8, MCH 30.3, MCHC 35.3 H, RDW 16.3 H, Plt Count 141 L, MPV7.3, Neut % (Auto) 60.0, Lymph % (Auto) 31.4, Upshur % (Auto) 5.5, Eos % (Auto) 2.7, Baso % (Auto) 0.4, Nucleat RBC Rel Count 0.1, Neut # (Auto) 3.3, Lymph # (Auto) 1.7, U[place]hur # (Auto) 0.3, Eos # (Auto) 0.1, Baso # (Auto) 0.0, PHA Creatinine Clear 35.10, Sodium 141, Potassium 4.0, Chloride 104, Carbon Dioxide 24.9, Anion Gap 16.1 H, BUN 37 H, Creatinine 1.55 H, Est GFR (CKD-EPI) 34.723, Glucose 142 H D, Calcium 9.2, Total Bilirubin 0.5, AST 17, ALT 17, Alkaline Phosphatase 122 H, Total Protein 6.3 L, Albumin 3.9, Globulin 2.4, Albumin/Globulin Ratio 1.6 07/21/24 20:41: POC Glucose 249 07/21/24 17:13: Magnesium 1.7 L 07/21/24 17:00: SARS-CoV-2 Rap RNA(RT-PCR) Negative Documented By: Comfort Monteiro MD 07/22/24 13 26 Signed By: <Electronically signed by Comfort Monteiro MD> 07/22/[address] [place] [address] Ctr Work Phone: [phone] 501-367609-05-2024 Consult note Author Ottoniel Bland [facility] July 21, 2024 4:56pm Note Date/Time July 21, 2024 3:59pm [facility] [address] [place] [address] Neurology Consult Note Signed Patient: Anh Tejeda MR#: [id number] : 1950 Acct:[id number] Age/Sex: 73 / F Adm Date: 4 Loc: Room: [address] [place] [address] Type: ADM INOo Attending Dr: Comfort Monteiro MD Copies to: DO Vinay Mckeon,DO Comfort Monteiro MD~ HPI Consult Date: 07/21/24 Police Liaison: Ottoniel Bland DO [facility] Medical History COVID-19 Acute bronchitis CRESENCIO (acute kidney injury) History of cataract marie eyes History of tonsillitis History of psychiatric care History of mumps as a child History of measles as a child History of pneumonia History of bronchitis Hyperlipidemia History of anemia Gout Hypertension Diabetes Skin cancer post. neck and forehead Arthritis History of fibromyalgia COVID-19 Surgical History History of surgical procedure on eye proper using laser marie eyes History of arthroscopy of right knee History of hysterectomy History of colonoscopy History of cholecystectomy Family History Father Cancer Mother Diabetes Congestive heart failure COPD (chronic obstructive pulmonary disease) Cancer Stroke Brother Diabetes Congestive heart failure Brother Multiple sclerosis Father Mother Social History Smoking Status: Never smoker Substance Use Type: None Meds Medications and Allergies Allergies acetaminophen [Tylenol-Codeine #3] Allergy (Unknown, Verified 07/21/24 10:31) Not allergic to tylenol codeine Allergy (Unknown, Verified 07/21/24 10:31) Dizziness Home Medications atenolol 50 mg tablet 50 mg PO DAILY 12/26/17 [History Confirmed 07/21/24] atorvastatin 20 mg tablet 20 mg PO DAILY 12/26/17 [History Confirmed 07/21/24] glimepiride 2 mg tablet 2 mg PO BID 12/26/17 [History Confirmed 07/21/24] lisinopril 20 mg-hydrochlorothiazide 12.5 mg tablet 1 tab PO DAILY 12/26/17 [History Confirmed 07/21/24] metformin 1,000 mg tablet 1,000 mg PO BID 12/26/17 [History Confirmed 07/21/24] furosemide 20 mg tablet 20 mg PO QAM 12/29/22 [History Confirmed 07/21/24] aspirin 81 mg tablet 81 mg PO DAILY 03/11/23 [History Confirmed 07/21/24] cyanocobalamin (vitamin B-12) 1,000 mcg tablet (Vitamin B-12) 1,000 mcg PO DAILY03/13/23 [History Confirmed 07/21/24] allopurinol 300 mg tablet 300 mg PO DAILY 05/11/24 [History Confirmed 07/21/24] ascorbate calcium (vitamin C) 500 mg tablet 500 mg PO DAILY 05/11/24 [History Confirmed 07/21/24] gabapentin 300 mg capsule 300 mg PO BID 05/11/24 [History Confirmed 07/21/24] magnesium oxide 400 mg PO BID 05/11/24 [History Confirmed 07/21/24] omeprazole 20 mg capsule,delayed release 20 mg PO DAILY 05/11/24 [History Confirmed 07/21/24] resmetirom 80 mg tablet (Rezdiffra) 80 mg PO DAILY 05/11/24 [History Confirmed 07/21/24] ropinirole 2 mg tablet 2 mg PO QHS 05/11/24 [History Confirmed 07/21/24] sitagliptin phosphate 50 mg tablet (Januvia) 50 mg PO DAILY 05/11/24 [History Confirmed 07/21/24] cholecalciferol (vitamin D3) 25 mcg (1,000 unit) capsule (Vitamin D3) 25 mcg PO DAILY 07/21/24 [History Confirmed 07/21/24] dapagliflozin propanediol 10 mg tablet (Farxiga) 10 mg PO DAILY 07/21/24 [History Confirmed 07/21/24] Exam Physical Exam Vital Signs: Temp Pulse Resp BP Pulse Ox O2 Del Method 98 F 70 18 142/83 H 97 Room Air 07/21/24 15:32 07/21/24 15:32 07/21/24 15:32 07/21/24 15:32 07/21/24 15:32 07/21/24 15:32 Results - Neuro Laboratory Findings 07/21/24 10:25 07/21/24 10:25 Lab Results: Hemoglobin A1c 7.7 % (4.3-5.6) H 07/21/24 10:25 Diagnostic Findings Imaging/Impressions: ITS Impressions Chest X-Ray 07/21/24 10:06 IMPRESSION: There is perihilar vascular prominence suggesting volume overload. No focal consolidation. Impression dictated by: Riki Garnica M.D.07/21/2024 12:02 PM Dictation Location: [place] [address] 07/21/24 10:06 IMPRESSION: No acute intracranial pathology. 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 Impression dictated by: Riki Garnica M.D.07/21/2024 10:57 AM Dictation Location: [facility]-- Assessment/Plan (1) Slurred speech: Plan CONSULT REASON: Slurred speech HPI: 73-year-old woman. Starting around July 09 she has been having fluctuating bodily fatigue and slurred speech issues. Her brother is in the room and helps provide the history. She thinks this all started when she started on Farxiga. That medication was stopped 3 days ago. The issues seem to slowly fluctuate. She will have hours where her speech is normal and then hours where it is slurred. Same with the bodily weakness. Her brother went to get her today to actually take her to a neurology appointment and she looks so bad that he brought her here for evaluation instead. She follows with Queta in neuro clinic for right hand carpal tunnel symptoms and right lower extremity sciatica symptoms. She also is having some palpitations that she wants investigated. She is most concerned about the palpitations actually. She is not having any issues swallowing. No shortness of breath. Has not noticed any diplopia. No sagging eyelids. Her brother happened to mention that when she gets sick or ill she has a tendency to lose consciousness, which happens gradually enough that somebody can usually help her get her down. She has falseteeth. EXAMINATION: In no distress. No deformities or trauma. Limbs seem well-perfused. No significant edema. Normal work of breathing. Visualized skin is generally intact and without lesions aside from age-related findings. Affect normal. Patient is alert and generally oriented. Attention normal. She is slurring herwords. Her speech is intelligible. No aphasia. Pupils are equal and small. Ocular motility is full. Gaze is conjugate. No nystagmus. Facial sensation isnormal. Hearing is normal. Facial strength is normal. Tongue is midline. Muscle bulk, tone, and strength are normal. No fatigability to upper extremity strength. No tremors. Reflexes normal throughout. Light touch is normal. Vibratory sensation is normal although diminished in her distal right lower extremity. No limb dysmetria or ataxia. DATA REVIEW: -BUN 43 and was 26 when checked in May. Creatinine 1.6 and was 1.3 when checked in May -A1c 7.7% -CT head showed remote lacunar infarct in the left frontal periventricular whitematter -MRI brain without contrast appears unremarkable, radiology report pending ASSESSMENT: Fluctuating slurring of speech over the past 10 days or so. Also with fluctuating generalized bodily fatigue and weakness. Not cerebrovascular in origin. MRI of her brain does not appear to show any intracranial pathology. Given the fluctuating symptoms, seems unlikely but we will check antibodies associated with myasthenia gravis. PLAN: 1. Checking a serum magnesium, was quite low back in May 2. Checking acetylcholine receptor antibodies and muscle specific kinase antibody 3. MRI brain report pending 4. Further recommendations to follow Documented By: Ottoniel Bland DO 07/21/24 1555 Signed By: <Electronically signed by Ottoniel Bland DO> 07/21/24 [address] [facility] Ctr Work Phone: [phone]) 893-296709-05-2024 History and physical note Author Comfort Monteiro [facility] July 21, 2024 3:26pm Note Date/Time July 21, 2024 12:40pm [facility] [address] [place] [address] Hospitalist H&P Signed Patient: Anh Tejeda MR#: [id number] : 1950 Acct:[id number] Age/Sex: 73 / F Adm Date: 4 Loc: 3T Room: [address] [place] [address] Type: ADM INOo Attending Dr: Comfort Monteiro MD Copies to: DO Comfort Rubio MD~ HPI DATE OF EXAMINATION: 07/21/24 CHIEF COMPLAINT: Palpitations, slurred speech HISTORY OF PRESENT ILLNESS: Patient is a 73-year-old female with medical history of diabetes, CKD stage III and other comorbidities as listed below presented to the ER due to intermittent palpitations since yesterday which has gotten worse this a.m.. Her brother stated per history and that patient was not able to express herself and had slurred speech, last known well about a week ago. From the history it seems like this pain ongoing intermittent issue with her slurred speech, unable to express her words, denies any chest pain, dizziness, lightheadedness, near-syncope or syncope events or LOC. She denies history of stroke, she reports that she takes baby aspirin daily along with cholesterol medicine and other listed medications. Patient did visit her PCP and states that she was recently started on Farxiga about a week or so ago which they thought she is having a reaction from it for which she held it for the last couple days with no improvement but worsening in her symptoms. In the ER, patient presented hypertensive with initial blood pressure 200s over 90s, improved with IV hypertensive agents, patient stated that she did not take her blood pressure medicine. Initial CT head showed remote lacunar infarct in the left frontal periventricular white matter similar to prior exam, no acute pathology. Decision was made to keep her for observation further evaluation and management. Review of Systems Review of Systems Review of systems: 10 systems are reviewed and are negative except as mentioned elsewhere in the documentation [facility] Medical History COVID-19 Acute bronchitis CRESENCIO (acute kidney injury) History of cataract marie eyes History of tonsillitis History of psychiatric care History of mumps as a child History of measles as a child History of pneumonia History of bronchitis Hyperlipidemia History of anemia Gout Hypertension Diabetes Skin cancer post. neck and forehead Arthritis History of fibromyalgia COVID-19 Surgical History History of surgical procedure on eye proper using laser marie eyes History of arthroscopy of right knee History of hysterectomy History of colonoscopy History of cholecystectomy Family History Father Cancer Mother Diabetes Congestive heart failure COPD (chronic obstructive pulmonary disease) Cancer Stroke Brother Diabetes Congestive heart failure Brother Multiple sclerosis Father Mother Social History Smoking Status: Never smoker Substance Use Type: None Meds Medications and Allergies Allergies acetaminophen [Tylenol-Codeine #3] Allergy (Unknown, Verified 07/21/24 10:31) Not allergic to tylenol codeine Allergy (Unknown, Verified 07/21/24 10:31) Dizziness Home Medications atenolol 50 mg tablet 50 mg PO DAILY 12/26/17 [History Confirmed 07/21/24] atorvastatin 20 mg tablet 20 mg PO DAILY 12/26/17 [History Confirmed 07/21/24] glimepiride 2 mg tablet 2 mg PO BID 12/26/17 [History Confirmed 07/21/24] lisinopril 20 mg-hydrochlorothiazide 12.5 mg tablet 1 tab PO DAILY 12/26/17 [History Confirmed 07/21/24] metformin 1,000 mg tablet 1,000 mg PO BID 12/26/17 [History Confirmed 07/21/24] furosemide 20 mg tablet 20 mg PO QAM 12/29/22 [History Confirmed 07/21/24] aspirin 81 mg tablet 81 mg PO DAILY 03/11/23 [History Confirmed 07/21/24] cyanocobalamin (vitamin B-12) 1,000 mcg tablet (Vitamin B-12) 1,000 mcg PO DAILY03/13/23 [History Confirmed 07/21/24] allopurinol 300 mg tablet 300 mg PO DAILY 05/11/24 [History Confirmed 07/21/24] ascorbate calcium (vitamin C) 500 mg tablet 500 mg PO DAILY 05/11/24 [History Confirmed 07/21/24] gabapentin 300 mg capsule 300 mg PO BID 05/11/24 [History Confirmed 07/21/24] magnesium oxide 400 mg PO BID 05/11/24 [History Confirmed 07/21/24] omeprazole 20 mg capsule,delayed release 20 mg PO DAILY 05/11/24 [History Confirmed 07/21/24] resmetirom 80 mg tablet (Rezdiffra) 80 mg PO DAILY 05/11/24 [History Confirmed 07/21/24] ropinirole 2 mg tablet 2 mg PO QHS 05/11/24 [History Confirmed 07/21/24] sitagliptin phosphate 50 mg tablet (Januvia) 50 mg PO DAILY 05/11/24 [History Confirmed 07/21/24] cholecalciferol (vitamin D3) 25 mcg (1,000 unit) capsule (Vitamin D3) 25 mcg PO DAILY 07/21/24 [History Confirmed 07/21/24] dapagliflozin propanediol 10 mg tablet (Farxiga) 10 mg PO DAILY 07/21/24 [History Confirmed 07/21/24] Exam Physical Exam Vital Signs: Temp Pulse Resp BP Pulse Ox O2 Del Method 97.5 F L 83 20 204/95 H 98 Room Air 07/21/24 09:57 07/21/24 11:54 07/21/24 11:54 07/21/24 11:54 07/21/24 11:54 07/21/24 11:54 Narrative: Const General: cooperative HEENT Normal oropharyngeal mucosa without any ulcers or exudates Eyes: Conjunctiva normal Pulmonary Auscultation: clear to auscultation , no crackles, no wheezes Cardiovascular Rate: normal rate Rhythm: regular rhythm Heart Sounds: S1 normal, S2 normal and no murmurs GI Inspection: non-distended Palpation: soft, not firm and nontender. No rigidity or rebound. Deferred Neuro General: alert, awake and oriented x3. No obvious new focal deficit. No slurred speech, able to carry conversation. No obvious facial asymmetry. Strength 5/5 in upper and lower extremities. Musculoskeletal: normal range of motion Extrem General: no cyanosis, trace pedal edema Psych Appearance: appropriate affect. Grossly normal Results - Hospitalist H&P Lab Results Labs: Laboratory Last Values Corrected WBC 4.8 X10E3/uL (3.8-11.6) 07/21/24 10:25 Uncorrected WBC Count 4.8 x10E3/uL (3.8-11.6) 07/21/24 10:25 RBC 3.66 X10E6/uL (3.60-5.00) 07/21/24 10:25 Hgb 11.0 g/dL (11.8-15.4) L 07/21/24 10:25 Hct 31.7 % (34.0-46.4) L 07/21/24 10:25 MCV 86.7 fl (80-100) 07/21/24 10:25 MCH 30.2 pg (24.7-34.3) 07/21/24 10:25 MCHC 34.8 g/dL (32.0-35.0) 07/21/24 10:25 RDW 16.4 % (11.9-15.3) H 07/21/24 10:25 Plt Count 141 x10E3/uL (150-450) L 07/21/24 10:25 MPV 7.1 fl (6.3-10.7) 07/21/24 10:25 Neut % (Auto) 68.2 % (.) 07/21/24 10:25 Lymph % (Auto) 24.6 % (.) 07/21/24 10:25 [place]hur % (Auto) 4.0 % (.) 07/21/24 10:25 Eos % (Auto) 2.5 % (.) 07/21/24 10:25 Baso % (Auto) 0.7 % (.) 07/21/24 10:25 Nucleat RBC Rel Count 0.0 /100 WBC (0-0.5) 07/21/24 10:25 Neut # (Auto) 3.3 x10E3/uL (1.8-7.7) 07/21/24 10:25 Lymph # (Auto) 1.2 x10E3/uL (1.00-4.8) 07/21/24 10:25 [place]hur # (Auto) 0.2 x10E3/uL (0.0-0.8) 07/21/24 10:25 Eos # (Auto) 0.1 x10E3/uL (0.0-0.45) 07/21/24 10:25 Baso # (Auto) 0.0 x10E3/uL (0.0-0.2) 07/21/24 10:25 Monocyte Dist Width 20.33 % (0.00-20.00) H 07/21/24 10:25 PT 12.3 Seconds (9.0-12.9) 07/21/24 10:25 INR 1.1 07/21/24 10:25 APTT 35.2 Seconds (25.1-36.5) 07/21/24 10:25 PHA Creatinine Clear 33.01 07/21/24 10:25 Sodium 138 mmol/L (136-145) 07/21/24 10:25 Potassium 4.5 mmol/L (3.5-5.1) 07/21/24 10:25 Chloride 103 mmol/L (98-107) 07/21/24 10:25 Carbon Dioxide 26.3 mmol/L (21.0-31.0) 07/21/24 10:25 Anion Gap 13.2 mEq/L (6.0-15.0) 07/21/24 10:25 BUN 43 mg/dL (7-25) H 07/21/24 10:25 Creatinine 1.64 mg/dL (0.60-1.20) H 07/21/24 10:25 Est GFR (CKD-EPI) 32.449 mL/Min 07/21/24 10:25 Glucose 334 mg/dL (70-100) H 07/21/24 10:25 Calcium 9.3 mg/dL (8.6-10.3) 07/21/24 10:25 Total Bilirubin 0.4 mg/dl (0.3-1.0) 07/21/24 10:25 Direct Bilirubin 0.10 mg/dL (0.03-0.18) 07/21/24 10:25 Indirect Bilirubin 0.3 mg/dL 07/21/24 10:25 AST 17 U/L (13-39) 07/21/24 10:25 ALT 18 U/L (7-52) 07/21/24 10:25 Alkaline Phosphatase 147 U/L (34-104) H 07/21/24 10:25 Total Creatine Kinase 56 U/L (30-223) 07/21/24 10:25 Troponin I High Sens 4.4 pg/mL (0.0-15.0) 07/21/24 10:25 B-Natriuretic Peptide 42.0 pg/mL (5-100) 07/21/24 10:25 Total Protein 6.6 gm/dL (6.4-8.9) 07/21/24 10:25 Albumin 4.1 gm/dL (3.5-5.7) 07/21/24 10:25 Globulin 2.5 gm/dL 07/21/24 10:25 Albumin/Globulin Ratio 1.6 07/21/24 10:25 Urine Color Light-yellow (Yellow) 07/21/24 11:48 Urine Appearance Clear (Clear) 07/21/24 11:48 Urine pH 6.0 (5.0-9.0) 07/21/24 11:48 Ur Specific Placida 1.018 (1.001-1.030) 07/21/24 11:48 Urine Protein Negative mg/dL (Negative) 07/21/24 11:48 Urine Glucose (UA) >=1000 mg/dL (Normal) H 07/21/24 11:48 Urine Ketones Negative (Negative) 07/21/24 11:48 Urine Occult Blood Negative (Negative) 07/21/24 11:48 Urine Nitrite Negative (Negative) 07/21/24 11:48 Urine Bilirubin Negative (Negative) 07/21/24 11:48 Urine Urobilinogen Normal mg/dL (Normal) 07/21/24 11:48 Ur Leukocyte Esterase Negative (Negative) 07/21/24 11:48 Assessment & Plan Assessment/Plan (1) Slurred speech: (2) Hypertensive urgency: (3) Hypertensive chronic kidney disease with stage 1 through stage 4 chronic kidney disease, or unspecified chronic kidney disease: (4) Type 2 diabetes mellitus with diabetic chronic kidney disease: Plan -CT head with no acute pathology. CT angio head and neck was not done in the ERdue to CKD. Will order carotid ultrasound to rule out DEB. -Out of the window for tPA, symptoms been going on for more than a week. - HbA1c 7.7, lipid profile appears acceptable -UA with no evidence of infection -Check echocardiogram -maintain aspirin and statin, pending MRI findings -Check MRI brain -PT/OT eval and treat -[employer] evaluation -Will keep hydralazine, labetalol IV as needed for systolic blood pressure more than 180. Resumed home meds starting now ( states she did not take meds today). -Neurology consult -Monitor on telemetry -Aspiration precautions -DM with hyperglycemia: will start insulin therapy here, adjust as needed Home medications resumed as appropriate Diet: carb consistent DVT ppx: heparin Code status: Full Status: Observation Discussed with patient at bedside. All questions answered. In agreement with theabove plan Comfort Velasquez MD Internal Medicine Hospitalist Attending Physician IP vs OBS Justification Based on differential dx, clinical care plan, and risk of adverse events, if untreated, in my clinical judgement this patient requires an acute care setting as: OBSERVATION because of an expectation of an under 2 midnight stay. Estimated length of stay (# of days): 2 Documented By: Comfort Monteiro MD 07/21/24 12 38 Signed By: <Electronically signed by Comfort Monteiro MD> 07/21/24 1526 [facility] Work Phone: 1(525) 902-123209-03-2024 Telephone encounter Note* Telephone Encounter - Samantha Mcmahan RN - 07/19/2024 12:48 PM EDT Pt informed of MM message and denies any questions, needs or concerns at this time. Appointment verified. Samantha Mcmahan RN [facility]09-03-2024 Miscellaneous Notes* Telephone Encounter - Samantha Mcmahan RN - 07/19/2024 12:48 PM EDT Pt informed of MM message and denies any questions, needs or concerns at this time. Appointment verified. Samantha Mcmahan RN * Telephone Encounter - Daksha Bridges PA-C - 07/19/2024 12:36 PM EDT Please inform patient that she does not need iron at this time Daksha Bridges PA-C [facility] Telephone encounter Note * Telephone Encounter - Daksha Bridges PA-C - 07/19/2024 12:36 PM EDT Please inform patient that she does not need iron at this time Daksha Bridges PA-C [facility]08-30-2024 History of Present illness Narrative* Daksha Bridges PA-C - 07/15/2024 2:30 PM EDT Hematology Progress Note PATIENT NAME: Anh Tejeda [facility] NO.: [id number] ATTENDING PHYSICIAN: Henry Walker MD DATE OF SERVICE: July 15, 2024 This note was copied from prior heme/onc encounter from 04/15/24. The patient's medications, allergies, past medical/surgical hx, family hx, ROS, and physical exam have all been reviewed and updated as appropriate. The interval history and assessment/plan content have been modified and are specific to today's (July 15, 2024) purpose for the visit. CHIEF COMPLAINT: Follow up Diagnosis: NAINA Treatment: Venofer x 3 doses 10/2022, again in January 2024 Interval History: Anh returns for 3 months follow up. She doesn't feel well. She was put on farxiga last weekend and she hasn't felt well since. She is fatigued and groggy. She plans to call her PCP to discuss this. Saw kidney doctor and he did ultrasound which she states showed cysts, but nothing else. Overall she is otherwise doing well. Current Outpatient Medications Medication Sig FARXIGA 10 mg tablet TAKE 1 TABLET BY MOUTH EVERYDAY FOR DIABETES resmetirom (REZDIFFRA) 80 mg tablet once daily. allopurinol (ZYLOPRIM) 300 mg tablet 300 mg. JANUVIA 50 mg tablet Take 1 tablet by mouth every afternoon. albuterol HFA (PROVENTIL HFA, VENTOLIN HFA) 90 mcg/actuation inhaler INHALE 2 PUFFS BY MOUTH EVERY 4 HOURS NEEDED FOR COUGH magnesium oxide 400 mg magnesium tab Take [...] Carb 250-300 mg tab Take by mouth. MEDIHONEY, HONEY, 100 % pste APPLY A THIN LAYER TWICE DAILY diclofenac, EC, (VOLTAREN) 75 mg EC tablet Take 75 mg by mouth once daily. furosemide (LASIX) 20 mg tablet Take 20 mg by mouth once daily. metformin HCl (METFORMIN ORAL) Take 1,000 mg by mouth once daily. No current facility-administered medications for this visit. ALLERGIES Allergen Reactions Acetaminophen-Codei* Other: See Comments pt states she is unwilling to try even plain tylenol after this experience even though she states she took tylenol prior to this and had no problems Tylenol #3 [Codeine] Other: See Comments Upset stomach PAST MEDICAL HISTORY No date: Anemia No date: Benign fundic gland polyps of stomach No date: Carpal tunnel syndrome No date: Chronic back pain No date: Diabetes mellitus (HCC) No date: Diverticulosis No date: GERD (gastroesophageal reflux disease) No date: Hemorrhoids No date: Hyperlipidemia No date: Polyneuropathy No date: Rectal polyp No date: Restless leg syndrome PAST SURGICAL HISTORY No date: COLONOSCOPY No date: EGD W/O BRSH SPEC VARICIES INJ No date: REVISE MEDIAN N/CARPAL TUNNEL SURG; Right Comment: w/Trigger Finger FAMILY HISTORY Problem Relation Age of Onset other (Congenital heart disease) Mother Lung Cancer Father Social History Tobacco Use Smoking status: Never Passive exposure: Past Smokeless tobacco: Never Vaping Use Vaping status: Never Used Substance Use Topics Alcohol use: Never Drug use: Not Currently REVIEW OF SYSTEMS GENERAL: No weight loss, malaise or fevers. No night sweats. +fatigue worse since starting farxiga HEENT: Negative for headaches, No changes in [...] of hands/feet. No weakness. PHYSICAL EXAMINATION: BP 108/68 Pulse 81 Temp 36.3 C (97.4 F) (Temporal) Resp 18 Wt 94.5 kg (208 lb 5.4 oz) SpO2 96% BMI 37.85 kg/m ECOG PS: 1 General: Alert, oriented x 3. NAD. Non-toxic appearing. Well-nourished. HEENT: No scleral icterus. Heart: HRR s1s2 Lungs: Lungs CTA, no wheezing, rales, rhonchi or crackles ,non-labored breathing. Abdominal: Abd soft, NT, ND. Extremities: No edema or cyanosis. Skin: No rashes, bruising, or petechiae. Neuro: Non-focal exam without deficits. LABS: Glucose (mg/dL) Date Value 04/15/2024 135 Potassium (mmol/L) Date Value 04/15/2024 4.6 Sodium (mmol/L) Date Value 04/15/2024 141 Chloride (mmol/L) Date Value 04/15/2024 103 CO2 (mmol/L) Date Value 04/15/2024 27 Creatinine (mg/dL) Date Value 04/15/2024 1.47 BUN (mg/dL) Date Value 04/15/2024 24 Anion Gap (mmol/L) Date Value 04/15/2024 11 Calcium, Total (mg/dL) Date Value 04/15/2024 9.8 Protein, Total (g/dL) Date Value 04/15/2024 6.9 Albumin (g/dL) Date Value 04/15/2024 4.4 Bilirubin, Total (mg/dL) Date Value 04/15/2024 0.4 Alkaline Phosphatase (U/L) Date Value 04/15/2024 123 AST (U/L) Date Value 04/15/2024 36 ALT (U/L) Date Value 04/15/2024 23 WBC Date Value Ref Range Status 07/15/2024 7.33 3.70 - 11.00 k/uL Final RBC Date Value Ref Range Status 07/15/2024 3.75 (L) 3.90 - 5.20 m/uL Final Hemoglobin Date Value Ref Range Status 07/15/2024 11.1 (L) 11.5 - 15.5 g/dL Final Hematocrit Date Value Ref Range Status 07/15/2024 32.6 (L) 36.0 - 46.0 % Final MCV Date Value Ref Range Status 07/15/2024 86.9 80.0 - 100.0 fL Final MCH Date Value Ref Range Status 07/15/2024 29.6 26.0 - 34.0 pg Final MCHC Date Value Ref Range Status 07/15/2024 34.0 30.5 - 36.0 g/dL Final RDW-CV Date Value Ref Range Status 07/15/2024 15.4 (H) 11.5 - 15.0 % Final Platelet Count Date Value Ref Range Status 07/15/2024 179 150 - 400 k/uL Final MPV Date Value Ref Range Status 07/15/2024 9.1 9.0 - 12.7 fL Final Abs Neut Date Value Ref Range Status 07/15/2024 5.25 1.45 - 7.50 k/uL Final Lymphocytes % Date Value Ref Range Status 07/15/2024 20.7 % Final Abs Lymph Date Value Ref Range Status 07/15/2024 1.52 1.00 - 4.00 k/uL Final Monocytes % Date Value Ref Range Status 07/15/2024 5.0 % Final Abs Upshur Date Value Ref Range Status 07/15/2024 0.37 <0.87 k/uL Final Abs Eosin Date Value Ref Range Status 07/15/2024 0.15 <0.46 k/uL Final Basophils % Date Value Ref Range Status 07/15/2024 0.3 % Final Abs Baso Date Value Ref Range Status 07/15/2024 <0.03 <0.11 k/uL Final PATH: IMAGING: ASSESSMENT AND PLAN: Anh Tejeda is a 73 year old year old female past medical [...] dose of Venofer was 01/2024. Her hemoglobin remains stable. Her iron studies are pending. She is still mildly anemiac, but this may be secondary to her CKD. She will follow up in 3 months with repeat labs. Chronic kidney disease stage 3b--likely secondary to diabetes. Now with nephrology following DM2-- follow up with PCP Mild TCP: Continue to monitor. Should this worsen, especially in the setting of anemia with normal iron stores, would need to consider further workup. PLTs are normal today at 179 Polyneuropathy: negative SPEP/MPA. Some improvement with carpal tunnel repair. RTC in 3 months fort labs. Sooner if symptomatic of NAINA or s/sx of blood loss as discussed at today's visit. Will order IV iron when iron levels drop. Daksha Bridges PA-C CC: Nisa Shepherd CNP I spent a total of 20 minutes on the date of the service which included preparing to see the patient, oprs-vl-bexi patient care, completing clinical documentation, performing a medically appropriate examination, counseling and educating the patient/family/caregiver, ordering medications, tests, or p rocedures, independently interpreting results (not separately reported), communicating results to the patient/family/caregiver, and care coordination (not separately reported). documented in this encounterCommunity [facility]08-[facility]24 NoteHNO ID: [id number] Author: DAKSHA BRIDGES PA-C Service: ? Author Type: Physician Cutting Table Operator Type: Progress Notes Filed: 07/15/2024 14:48 Note Text: Hematology Progress Note PATIENT NAME: Anh Tejeda [facility] NO.: [id number] ATTENDING PHYSICIAN: Henry Wakler MD DATE OF SERVICE: July 15, 2024 This note was copied from prior heme/onc encounter from 04/15/24. The patient's medications, allergies, past medical/surgical hx, family hx, ROS, and physical exam have all been reviewed and updated as appropriate. The interval history and assessment/plan content have been modified and are specific to today's (July 15, 2024) purpose for the visit. CHIEF COMPLAINT: Follow up Diagnosis: NAINA Treatment: Venofer x 3 doses 10/2022, again in January 2024 Interval History: Anh returns for 3 months follow up. She doesn't feel well. She was put on farxiga last weekend and she hasn't felt well since. She is fatigued and groggy. She plans to call her PCP to discuss this. Saw kidney doctor and he did ultrasound which she states showed cysts, but nothing else. Overall she is otherwise doing well. Current Outpatient Medications Medication Sig FARXIGA 10 mg tablet TAKE 1 TABLET BY MOUTH EVERYDAY FOR DIABETES resmetirom (REZDIFFRA) 80 mg tablet once daily. allopurinol (ZYLOPRIM) 300 mg tablet 300 mg. JANUVIA 50 mg tablet Take 1 tablet by mouth every afternoon. albuterol HFA (PROVENTIL HFA, VENTOLIN HFA) 90 mcg/actuation inhaler INHALE 2 PUFFS BY MOUTH EVERY 4 HOURS NEEDED FOR COUGH magnesium oxide 400 mg magnesium tab Take [...] Carb 250-300 mg tab Take by mouth. MEDIHONEY, HONEY, 100 % pste APPLY A THIN LAYER TWICE DAILY diclofenac, EC, (VOLTAREN) 75 mg EC tablet Take 75 mg by mouth once daily. furosemide (LASIX) 20 mg tablet Take 20 mg by mouth once daily. metformin HCl (METFORMIN ORAL) Take 1,000 mg by mouth once daily. No current facility-administered medications for this visit. ALLERGIES Allergen Reactions Acetaminophen-Codei* Other: See Comments pt states she is unwilling to try even plain tylenol after this experience even though she states she took tylenol prior to this and had no problems Tylenol #3 [Codeine] Other: See Comments Upset stomach PAST MEDICAL HISTORY No date: Anemia No date: Benign fundic gland polyps of stomach No date: Carpal tunnel syndrome No date: Chronic back pain No date: Diabetes mellitus (HCC) No date: Diverticulosis No date: GERD (gastroesophageal reflux disease) No date: Hemorrhoids No date: Hyperlipidemia No date: Polyneuropathy No date: Rectal polyp No date: Restless leg syndrome PAST SURGICAL HISTORY No date: COLONOSCOPY No date: EGD W/O [facility] SPEC VARICIES INJ No date: REVISE MEDIAN N/CARPAL TUNNEL SURG; Right Comment: w/Trigger Finger FAMILY HISTORY Problem Relation Age of Onset other (Congenital heart disease) Mother Lung Cancer Father Social History Tobacco Use Smoking status: Never Passive exposure: Past Smokeless tobacco: Never Vaping Use Vaping status: Never Used Substance Use Topics Alcohol use: Never Drug use: Not Currently REVIEW OF SYSTEMS GENERAL: No weight loss, malaise or fevers. No night sweats. +fatigue worse since starting farxiga HEENT: Negative for headaches, No changes in [...] of hands/feet. No weakness. PHYSICAL EXAMINATION: BP 108/68 Pulse 81 Temp 36.3 ?C (97.4 ?F) (Temporal) Resp 18 Wt 94.5 kg (208 lb 5.4 oz) SpO2 96% BMI 37.85 kg/m? ECOG PS: 1 General: Alert, oriented x 3. NAD. Non-toxic appearing (more content not included)...[facility]06-05-[facility]24 Telephone encounter Note* Telephone Encounter - Samantha Mcmahan RN - 04/20/2024 1:48 PM EDT Pt aware and denies any questions, needs or concerns at this time. Samantha Mcmahan RN [facility]06-[facility] Miscellaneous Notes* Telephone Encounter - Samantha Mcmahan RN - 04/20/2024 1:48 PM EDT Pt aware and denies any questions, needs or concerns at this time. Samantha Mcmahan RN * Telephone Encounter - Daksha Bridges PA-C - 04/20/2024 1:20 PM EDT Iron levels look good Daksha Bridges PA-C * Telephone Encounter - Samantha Mcmahan RN - 04/20/2024 11:58 AM EDT Pt called to request Iron lab results. MM: please verify no needs at this time Samantha Mcmahan RN documented in this encounterCommunity [facility] Hospital06-05-2024 Telephone encounter Note * Telephone Encounter - Daksha Bridges PA-C - 04/20/2024 1:20 PM EDT Iron levels look good Daksha Bridges PA-C [facility] Telephone encounter Note* Telephone Encounter - Samantha Mcmahan RN - 04/20/2024 11:58 AM EDT Pt called to request Iron lab results. MM: please verify no needs at this time Samantha Mcmahan RN [facility]05-31-[facility] Instructions* Patient Instructions* Shana Flores APRN.CNP - 04/15/2024 2:27 PM EDT Please call the office with questions or concerns. Report symptoms of worsening iron-deficiency anemia like short of breath, headaches, ice cravings, worsening fatigue, dizziness, or light-headedness. documented in this encounterCommunity Memorial Hospital05-31-2024 History of Present illness Narrative* Shana Flores APRN.CNP - 04/15/2024 2:09 PM EDT Hematology Progress Note [id number] ATTENDING PHYSICIAN: Henry Walker MD DATE OF SERVICE: April 15, 2024 This note was copied from prior heme/onc encounter from 01/29/24. The patient's medications, allergies, past medical/surgical hx, family hx, ROS, and physical exam have all been reviewed and updated as appropriate. The interval history and assessment/plan content have been modified and are specific to today's (April 15, 2024) purpose for the visit. CHIEF COMPLAINT: Follow up Diagnosis: NAINA Treatment: Venofer x 3 doses 10/2022 HPI: Anh returns for follow up. Had to go to the ER last week due to leg rayo and cramps. Was found to have low magnesium and potassium. (Records reviewed) Also had recent liver ultrasound by her GIdoctor. She is still having leg cramps, but not as severe. She had teeth pulled and new dentures and her eating has been poor. Fatigue level is worse. She feels she is tired more. She gets 5 hours of sleep and then she wakes up and can't go back to sleep. Interval History: Ms. Tejeda presents for follow up of her anemia with repeat labs. Sleeping has been better. Syncope is stable and chronic. Had CTS and lock finger repair 02/2023, some improvement in N/T R hand but still present bilaterallylong with polyneuropathy in her legs overall. Most recent iron infusion with Venofer 300 mg was 02/11/24. Will be seeing a probation and patrol agent in the next couple of weeks for her CKD. Current Outpatient Medications Medication Sig JANUVIA 50 mg tablet Take 1 tablet by mouth every afternoon. albuterol HFA (PROVENTIL HFA, VENTOLIN HFA) 90 [...] of hands/feet. No weakness. PHYSICAL EXAMINATION: BP 135/73 Pulse 89 Temp 36.1 C (97 F) (Temporal) Resp 16 Ht 158 cm (5' 2.21 ) Wt 97.6 kg (215 lb 2.7 oz) SpO2 95% BMI 39.10 kg/m ECOG PS: 1 General: Alert, oriented x 3. NAD. Non-toxic appearing. Well-nourished. HEENT: No scleral icterus. Heart: HRR s1s2 Lungs: Lungs CTA, no wheezing, rales, rhonchi or crackles ,non-labored breathing. Abdominal: Abd soft, NT, ND. Extremities: No edema or cyanosis. Skin: No rashes, bruising, or petechiae. Neuro: Non-focal exam without deficits. LABS: Glucose (mg/dL) Date Value 01/29/2024 327 [...] 24 WBC Date Value Ref Range Status 04/15/2024 6.56 3.70 - 11.00 k/uL Final RBC Date Value Ref Range Status 04/15/2024 3.77 (L) 3.90 - 5.20 m/uL Final Hemoglobin Date Value Ref Range Status 04/15/2024 11.3 (L) 11.5 - 15.5 g/dL Final Hematocrit Date Value Ref Range Status 04/15/2024 33.7 (L) 36.0 - 46.0 % Final MCV Date Value Ref Range Status 04/15/2024 89.4 80.0 - 100.0 fL Final MCH Date Value Ref Range Status 04/15/2024 30.0 26.0 - 34.0 pg Final MCHC Date Value Ref Range Status 04/15/2024 33.5 30.5 - 36.0 g/dL Final RDW-CV Date Value Ref Range Status 04/15/2024 17.1 (H) 11.5 - 15.0 % Final Platelet Count Date Value Ref Range Status 04/15/2024 140 (L) 150 - 400 k/uL Final MPV Date Value Ref Range Status 04/15/2024 8.7 (L) 9.0 - 12.7 fL Final Abs Neut Date Value Ref Range Status 04/15/2024 4.84 1.45 - 7.50 k/uL Final Lymphocytes % Date Value Ref Range Status 04/15/2024 18.6 % Final Abs Lymph Date Value Ref Range Status 04/15/2024 1.22 1.00 - 4.00 k/uL Final Monocytes % Date Value Ref Range Status 04/15/2024 4.7 % Final Abs Upshur Date Value Ref Range Status 04/15/2024 0.31 <0.87 k/uL Final Abs Eosin Date Value Ref Range Status 04/15/2024 0.13 <0.46 k/uL Final Basophils % Date Value Ref Range Status 04/15/2024 0.3 % Final Abs Baso Date Value Ref Range Status 04/15/2024 <0.03 <0.11 k/uL Final PATH: IMAGING: ASSESSMENT AND PLAN: Anh Tejeda is a 73 year old year old female past medical [...] dose of Venofer was 01/2024. Her hemoglobin remains stable today, however she remains mildly anemic. Iron studies pending, and will follow up on those. Return in 3 months with repeat labs. Chronic kidney disease stage 3b--likely secondary to diabetes. PCP is following, stable currently, may contribute to some of her anemia DM2-- follow up with PCP Mild TCP: Continue to monitor. Polyneuropathy: negative SPEP/MPA. Shana Flores APRN.JENY Hematology/Oncology [place] [phone] CC: Nisa Shepherd CNP documented in this encounterCommunity [facility] Hospital03-25-2024 History of Present illness Narrative* Renetta Johnson LSW - 02/08/2024 11:41 AM EDT Patient appears on the [facility] First Time Treatment List for a non-oncology treatment. No psychosocial assessment is indicated. ALIA Bean documented in this encounterCommunity [facility] Hospital03-18-2024 Miscellaneous Notes* Telephone Encounter - Colette Carbajal - 02/01/2024 9:57 AM EDT Patient has been scheduled for IV Venofer on 02/10, 02/17 and 02/24 and has been notified. Thanks! Colette Carbajal * Telephone Encounter - Daksha Bridges PA-C - 02/01/2024 9:43 AM EDT Orders are placed. Please schedule for venofer 300 mg IV x 3 weeks * Telephone Encounter - Samantha Mcmahan RN - 02/01/2024 9:40 AM EDT Pt aware and agreeable to IV Iron MM: Please place orders PSS: please call to schedule Samantha Mcmahan RN * Telephone Encounter - Samantha Mcmahan RN - 02/01/2024 9:36 AM EDT ----- Message from Daksha Bridges PA-C sent at 02/01/2024 8:00 AM EDT ----- Please call and advise that her iron studies are dropping and she is anemic and since she is feeling more fatigued IV iron would be reasonable if she would like. documented in this encounterCommunity Memorial Hospital03-15-2024 Miscellaneous Notes* Telephone Encounter - Samantha Mcmahan RN - 01/29/2024 1:15 PM EDT Pt called to inform MM her blood sugar is down to 198. Instructed to keep a record and notify PCPMonday for an appt to manage. She is agreeable and will call. Samantha Mcmahan RN documented in this encounterCommunity Memorial Hospital03-15-2024 History of Present illness Narrative* Daksha Bridges PA-C - 01/29/2024 10:30 AM EDT PATIENT NAME: Anh Tejeda [facility] NO.: [id number] ATTENDING PHYSICIAN: Henry Walker MD DATE OF SERVICE: January 29, 2024 (Elements copied from my note dated May 01, 2023, have been reviewed and updated where appropriate, and all reflect current assessment and medical decision making during today's encounter, January) CHIEF COMPLAINT: Follow up Diagnosis: NAINA Treatment: Venofer x 3 doses 10/2022 HPI: Anh returns for follow up. Had to go to the ER last week due to leg rayo and cramps. Was found to have low magnesium and potassium. (Records reviewed) Also had recent liver ultrasound by her GIdoctor. She is still having leg cramps, but not as severe. She had teeth pulled and new dentures and her eating has been poor. Fatigue level is worse. She feels she is tired more. She gets 5 hours of sleep and then she wakes up and can't go back to sleep. Going on a trip to [place] for week. Current Outpatient Medications Medication Sig [...] Range Status 01/29/2024 3.5 % Final Abs U[place]hur Date Value Ref Range Status 01/29/2024 0.21 [...] patient to follow up with PCP Daksha Bridges PA-C CC: Nisa Shepherd CNP I spent a total of 20 minutes on the date of the service which included preparing to see the patient, dbwm-lw-cqli patient care, completing clinical documentation, obtaining and/or reviewing separately obtained history, performing a medically appropriate examination, counseling and educating the pat ient/family/caregiver, ordering medications, tests, or procedures, and communicating results to thepatient/family/caregiver. documented in this encounterCommunity Memorial Hospital01-22-2024 Hospital Discharge instructions Patient Education 12/07/2023 09:08:45 Anemia Anemia Anemia is a condition in which there are not enough red blood cells or hemoglobin in the blood. Hemoglobin is a substance in red blood cells that carries oxygen. When you do not have enough red blood cells or hemoglobin (are anemic), your body cannot get enoughoxygen, and your organs may not work properly. [...] spleen. Follow these instructions at home: Take cuml-lls-kmairsb and prescription medicines only as told by [...] provider. Document Revised: 01/26/2023 Document Reviewed: 01/26/2023 [employer] Patient Education 2022 [employer]. Follow Up Care 11/12/2023 09:08:30 With:Nisa Shepherd CNP Address: When:3 months [facility] [phone] Miscellaneous Notes* Telephone Encounter - Samantha Mcmahan RN - 10/26/2023 9:27 AM EST Pt aware of MM message. She denies questions, needs or concerns at this time. Samantha Mcmahan RN * Telephone Encounter - Samantha Mcmahan RN - 10/26/2023 9:27 AM EST ----- Message from Daksha Bridges PA-C sent at 10/26/2023 8:01 AM EST ----- Please call with normal iron levels documented in this encounterCommunity Memorial Hospital12-05-2023 Evaluation note* Encounter Date Diagnosis Assessment Notes Treatment Notes Treatment Clinical Notes Oct, Obstructive sleep apnea (ICD-10 - G47.33) Fortunately, the patient is using and benefiting from treatment. Download was reviewed with patient, Current pressure is controlling apnea well, And we will make no changes at this time. Pt does have a significant leak but this is likely due to mouth leak as opposed to inproper fit. A prescription was sent to the [employer] for new supplies throughout the year. She was encouraged to continue to use her machine nightly, throughout the entire night and for naps as this does provide clinical benefit. She will follow-up in the sleep clinic in 1 year or sooner if problems. Oct, BMI 36.0-36.9,adult (ICD-10 - Z68.36) Patient's weight is unchanged [...] have anemia, she is currently seeing a construction equipment overhauler and has needed some blood transfusion. They are currently managing this and she may need to see a probation and patrol agent for kidney issues. Discussed c pt that [...] in a timely fashion. Do not smoke [place] Other [id number] Miscellaneous Notes* Telephone Encounter - Samantha Mcmahan [...] with normal iron studies documented in this encounterCommunity Memorial Hospital09-08-2023 Miscellaneous Notes* Telephone Encounter - Valentina Diaz RN - 07/24/2023 3:19 PM EDT Call made to Dr. Matta's office. Office was closed for the weekend. Left message on secure VM with message. Labs faxed as requested. Valentina Mandel RN * Telephone Encounter - Daksha Bridges [...] sooner. Daksha Bridges PA-C documented in this encounterCommunity Memorial Hospital09-08-2023 Nurse Note* Beverly Reza MA - 07/24/2023 2:01 PM EDT Patient states that she has been very tired but her neuropathy have been bothering her. Beverly Marcus MA documented in this encounterCommunity Memorial Hospital09-08-2023 History of Present illness Narrative* Daksha Bridges PA-C - 07/24/2023 2:00 PM EDT PATIENT NAME: Anh Tejeda [facility] NO.: [id number] ATTENDING PHYSICIAN: Henry Walker MD DATE OF [...] Range Status 07/24/2023 5.9 % Final Abs [place] Date Value Ref Range Status 07/24/2023 0.39 [...] nephrology consult. Daksha Bridges PA-C CC: Nisa Shepherd CNP documented in this encounterCommunity Memorial Hospital06-19-2023 Miscellaneous Notes* Telephone Encounter - Karlie Vallejo RN - 05/04/2023 10:04 AM EDT Patient notified and verbalized understanding. No further questions. Karlie Vallejo RN * Telephone Encounter - Karlie Vallejo RN - 05/04/2023 10:03 AM EDT ----- Message from Daksha Bridges PA-C sent at 05/04/2023 7:40 AM EDT ----- Please call and inform the patient that her iron levels are good and she does not need iron. documented in this encounterCommunity Memorial Hospital06-16-2023 History of Present illness Narrative* Daksha Bridges PA-C - 05/01/2023 2:00 PM EDT PATIENT NAME: Anh Tejeda [facility] NO.: [id number] ATTENDING PHYSICIAN: Henry Walker MD DATE OF [...] last visit she did have [place] [facility] [place] and U[place]. She [...] a colonoscopy a few weeks ago at [facility]. I do not have any of these [...] Range Status 05/01/2023 6.0 % Final Abs [place] Date Value Ref Range Status 05/01/2023 0.44 [...] in 3 months. Will request records from [facility] colonoscopy as well. Chronic kidney disease stage 3b--likely secondary to diabetes. Referral to nephrology recommended and she wishes to discuss to PCP Daksha Bridges PA-C CC: Nisa Shepherd CNP documented in this encounterCommunity Memorial Hospital04-27-2023 Consult note Author Krissy Easton [facility] March 12, 2023 5:33pm Note Date/Time March 12, 2023 11: 16am [facility] [address] [place] [address] Neurology Consult Note Signed Patient: Anh Tejeda MR#: [id number] : 1950 Acct:[id number] Age/Sex: 72 / F Adm Date: 3 Loc: Room: [address] [place] [address] Type: ADM IN Attending Dr: Kimberly Arteaga MD Copies to: DO Queta Rubio, MD Krissy Severino,~ HPI Consult Date: 03/12/23 Police Liaison: ISAMAR Amato with Dr. Easton Reason for [...] and ulnar nerve compression CEREBELLAR EXAM: * Woanly-ut-chlv and alternating movements are intact and normal in bilateral upper extremities * Ubfh-zj-ldjh and alternating movements are intact and normal in lower extremities. She has difficulty with prcb-kr-fcbq using the right lower extremity due to [...] of dysmetria with good rapid alternating movements xmlxcz-pe-gztd Tone is physiologic Deep tendon reflexes are [...] Riki Garnica M.D.03/12/2023 8:58 AM Dictation Location: [place] [address] Therapy Recommendations Therapy Recommendations: ST Recommendations Liquid [...] care and confirmed this with the Fellow/Nurse Practitioner/Resident/Senior Oracle Database Administrator/Physician Cutting Table Operator as noted below. 72 year old female [...] 1733 <Electronically signed by DENISE Prieto> 03/12/23 1156 [facility] Work Phone: [phone]) 446-381604-27-2023 Progress note Author Kimberly Arteaga [facility] March 12, 2023 4:35pm Note Date/Time March 12, 2023 4:3 2pm [facility] [address] [place] [address] Hospitalist Progress Note Signed Patient: Anh Tejeda MR#: [id number] : 1950 Acct:[id number] Age/Sex: 72 / F Adm Date: 3 Loc: 3T Room: [address] [place] [address] Type: ADM IN Attending Dr: Kimberly Arteaga [...] 03/11/24 16:59 Not Given TID.WM.HS [facility] Protocol Metoprolol Tartrate 50 mg 03/12/23 09:00 [...] <Electronically signed by Kimberly Arteaga MD> 03/12/23 1524 [facility] Work Phone: 1(599) 815-712504-26-2023 History and physical note Author Kimberly Arteaga [facility] March 11, 2023 7:01pm Note Date/Time March 11, 2023 6:4 6pm [facility] [address] [place] [address] Hospitalist H&P Signed with Panfilo Patient: Anh Tejeda MR#: [id number] : 1950 Acct:[id number] Age/Sex: 72 / F Adm Date: 3 Loc: Room: [address] [place] [address] Type: ADM IN Attending Dr: Kimberly Arteaga [...] % (Auto) 24.2 % (.) 03/11/23 15:41 Upshur % (Auto) 6.1 % (.) 03/11/23 15:41 Eos % (Auto) 1.4 % (.) 03/11/23 15:41 Baso % (Auto) 0.4 % (.) 03/11/23 15:41 Nucleat RBC Rel Count 0.1 /100 WBC (0-0.5) 03/11/23 15:41 Neut # (Auto) 3.9 x10E3/uL (1.8-7.7) 03/11/23 15:41 Lymph # (Auto) 1.4 x10E3/uL (1.00-4.8) 03/11/23 15:41 Upshur # (Auto) 0.3 x10E3/uL (0.0-0.8) 03/11/23 15:41 Eos # (Auto) 0.1 x10E3/uL (0.0-0.45) 03/11/23 15:41 Baso # (Auto) 0.0 x10E3/uL (0.0-0.2) 03/11/23 15:41 Monocyte Dist Width 17.19 % (0.00-20.00) 03/11/23 15:41 PT 13.5 Seconds (9.0-12.9) H 03/11/23 15:41 INR 1.2 04/26/23 15:41 APTT 33.9 Seconds (25.1-36.5) 03/11/23 15:41 [...] pH 5.0 (5.0-9.0) 03/11/23 16:48 Ur Specific Placida 1.020 (1.001-1.030) 03/11/23 16:48 Urine Protein Negative [...] stroke. Documented By: Kimberly Arteaga MD 03/11/23 [id number] Signed By: <Electronically signed by Kimberly Arteaga MD> 03/11/23 1856 [facility] Work Phone: 1(542) 721-808003-27-2023 Miscellaneous Notes* Telephone Encounter - Sonia Rg [...] with normal iron labs documented in this encounterCommunity Memorial Hospital03-24-2023 History of Present illness Narrative* Daksha Bridges PA-C - 02/06/2023 2:30 PM EDT PATIENT NAME: Anh [facility] NO.: [id number] ATTENDING PHYSICIAN: Henry Walker MD DATE OF [...] little better. Current Outpatient Medications Medication Sig MEDIJEN, HONEY, 100 % pste APPLY A THIN [...] Range Status 02/06/2023 5.7 % Final Abs [place] Date Value Ref Range Status 02/06/2023 0.37 [...] 3 months. Daksha Bridges PA-C CC: Nisa Shepherd CNP documented in this encounterCommunity Memorial Hospital02-08-2023 Hospital Discharge instructions Patient Education 12/24/2022 [...] powder, vinegar, hot sauces, and barbecue sauce. ?[place] fruit juices and citrus fruits, such as oranges, myron, and limes. ?Tomato-based foods, such as red sauce, chili, salsa, and pizza with red sauce. ?Fried and fatty foods, such as donuts, tristanian fries, potato chips, and high-fat dressings. ?High-fat [...] to any changes in your symptoms. Take wned-acc-uhzftnp and prescription medicines only as told by [...] you have new or worsening symptoms. Take yjjf-eze-arbzrwc and prescription medicines only as told by [...] 08/12/2006 Document Revised: 05/11/2019 Document Reviewed: 05/11/2019 [employer] Patient Education 2020 [employer]. 12/24/2022 10:15:21 Gastroesophageal Reflux Disease, Adult Gastroesophageal [...] powder, vinegar, hot sauces, and barbecue sauce. ?[place] fruit juices and citrus fruits, such as oranges, myron, and limes. ?Tomato-based foods, such as red sauce, chili, salsa, and pizza with red sauce. ?Fried and fatty foods, such as donuts, tristanian fries, potato chips, and high-fat dressings. ?High-fat [...] to any changes in your symptoms. Take xdyz-tjk-kolpvfq and prescription medicines only as told by [...] you have new or worsening symptoms. Take fgqv-yzq-roexayq and prescription medicines only as told by [...] 08/12/2006 Document Revised: 05/11/2019 Document Reviewed: 05/11/2019 [employer] Patient Education 2019 [employer]. Follow Up Care 09/19/2022 13:04:08 With:Nisa Shepherd CNP Address: When:3 months [facility] 01-30-2023 Miscellaneous Notes* [...] Keep appointments as scheduled [facility] History of Present illness Narrative* Daksha Bridges PA-C - 12/12/2022 3:00 PM EST PATIENT NAME: Anh [facility] NO.: [id number] ATTENDING PHYSICIAN: Henry Walker MD DATE OF [...] HISTORY Procedure Laterality Date COLONOSCOPY EGD W/O [facility] SPEC VARICIES INJ FAMILY HISTORY [...] 12/12/2022 1.24 1.00 - 4.00 k/uL Final U[place]hur% Date Value Ref Range Status 12/12/2022 5.0 % Final Abs [place] Date Value Ref Range Status 12/12/2022 0.28 [...] repeat labs. Daksha Bridges PA-C CC: Nisa Shepherd CNP documented in this encounterCommunity [facility]12-[facility] History of Present illness Narrative* MAGUE Bean - 10/22/2022 9:46 AM EST Patient appears on the [facility] First Time Treatment List for a non-oncology treatment. No psychosocial assessment is indicated. ALIA Bean documented in this encounterCommunity [facility]12[facility] History of Present illness Narrative* Daksha Bridges PA-C - 10/16/2022 10:30 AM EST PATIENT NAME: Anh Nikhil [facility] NO.: [id number] ATTENDING PHYSICIAN: Henry Walker MD DATE OF [...] 10/01/2022 1.07 1.00 - 4.00 k/uL Final U[place]% Date Value Ref Range Status 10/01/2022 4.6 % Final Abs [place] Date Value Ref Range Status 10/01/2022 0.25 [...] as well. Daksha Bridges PA-C CC: Nisa Shepherd CNP documented in this encounterCommunity [facility]11-30-[facility]22 Miscellaneous Notes* Telephone Encounter - Haley Moreno Joyc[facility] - 10/15/2022 10:08 AM EST Patient on 1st time treatment report-non oncology regimen (venofer) Patient holds medicare coverageand no FA available for this treatment. documented in this encounterCommunity [facility]11-29-2022 Evaluation note* Encounter Date Diagnosis Assessment Notes Treatment Notes Treatment Clinical Notes Sep, Obstructive sleep apnea (ICD-10 - G47.33) Fortunately, the patient is using and benefiting from treatment. Download was reviewed with patient, Current pressure is controlling apnea well, And we will make no changes at this time. A prescription was sent to the [employer] for new supplies throughout the year. She [...] in a timely fashion. Do not smoke [place] Other 11-25-2022 History of Present illness Narrative* MAGUE Bean - 10/10/2022 9:09 AM EST Patient appears on the First Time Treatment List for a non-oncology treatment. No psychosocial assessment is indicated. ALIA Bean documented in this [facility]Community [facility]11-21-2022 Miscellaneous Notes* Telephone Encounter - Colette Carbajal - 10/06/2022 9:23 AM EST Patient has been scheduled for 10/16. Call placed to patient and had to leave a message on her voicemail to let her know to expect an Iron infusion after her appointment with Dr. Walker. Colette Carbajal * Telephone Encounter - Henry Walker [...] us arranging for it documented in this encounterCommunity [facility] Hospital11-16-2022 History of Present illness Narrative* Henry Walker MD - 10/01/2022 11:47 AM EST PATIENT NAME: Anh Tejeda [facility] NO.: [id number] ATTENDING PHYSICIAN: Henry Walker MD DATE OF SERVICE: October 01, 2022 Dear Nisa Shepherd thank you for referring Mrs Anh Tejeda [...] HISTORY Procedure Laterality Date [facility] FAMILY HISTORY Problem Relation [...] back in [address] Nisa Shepherd, thank you for allowing me to participate in Mrs. Anh Tejeda care, if there are any questions or concerns please do not hesitate to contact me at the number below. Henry Walker M.D. Hematology/Medical Oncology [facility] [phone] CC: Nisa Shepherd, GRINDER SET UP OPERATOR THREAD TOOL documented in this encounterCommunity [facility] Hospital10-18-2022 Evaluation + Plan note Future Scheduled Tests Laboratory* B-Type Natriuretic Peptide 09/02/22 * TIBC Calculated 04/23/22 * Ferritin 04/23/22 * Folate Level 04/23/22 * Hepatic Function Panel 04/23/22 * Iron Level 04/23/22 * Magnesium Level 02/04/23 * Reticulocyte Count 04/23/22 * Vitamin B12 Level 04/23/22 [facility]07-28-[facility] Hospital Discharge instructions Patient Education 06/12/2022 [...] unsweetened, w/added ascorbic acid 1 cup 0.5 [place] 1 cup 0.7 Vegetables Cooked Green beans 1 cup 4.0 Carrots 1/2 cup sliced 2.3 Peas 1 cup 8.8 Potato (baked, with skin) 1 medium potato 3.8 Raw Pixley (with peel) 1 cucumber 1.5 Lettuce 1 [...] 8.7 Peanuts 1/2 cup 7.9 Chart from [facility] 2013. SEEK IMMEDIATE MEDICAL CARE [...] Information adapted from: ExitCare Patient Information 2010 [employer]. [place] 2012 [email or web address]-[email or web address]-eoilnm-the-basics 06/12/2022 09:13:55 Colon Polyps Colon Polyps Polyps [...] 07/29/2005 Document Revised: 02/17/2019 Document Reviewed: 02/17/2019 [employer]ik Patient Education 2020 [employer]. 06/12/2022 09:13:55 Colonoscopy, Care After Surgery Salam [...] day. 06/12/2022 09:13:55 Endoscopy, Care After Procedure [facility] Endoscopy Care After Procedure Please read the instructions outlined below and refer to this sheet in the next few weeks. These discharge instructions provide you with general information on caring for yourself [facility] Your doctor may also give you specific [...] Document Re-Released: 04/26/2007 ExitCare Patient Information 2010 [employer], [employer]. Follow Up Care 04/23/2022 14:07:59 With:Jason RUSSELL Address: [address] [place] [phone] Business (1) When:1 to 2 weeks Comments:Call for any problems. [facility]Reason for visit Narrative* Chief Complaint See order RENAL CKD PROGRESSION Reason for Visit Anemia of renal dise ase Chronic kidney disease, stage III (moderate) Hyperlipidemia [id number] Secondary hyperparathyroidism Type 2 diabetes mellitus with diabetic chronic kidney disease [facility] Work Phone: Chirq complaint+Reason for visit Narrative* Chief Complaint RENAL CKD PROGRESSIO N N18.30 E78.5 N25.81 N18.9 D63.1 I12.9 E11.22 N18.3 Reason for Visit Anemia of renal dise ase Chronic kidney disease, stage III (moderate) Hyperlipidemia [id number] Secondary hyperparathyroidism Type 2 diabetes mellitus with diabetic chronic kidney disease [facility] Work Phone: chief complaint+Reason for visit Narrative* Chief Complaint RENAL CKD PROGRESSIO N N18.30 E78.5 N25.81 N18.9 D63.1 I12.9 E11.22 N18.3 RENAL 6 Week F/U Reason for Visit Anemia of renal dise ase Chronic kidney disease, stage III (moderate) Hyperlipidemia [id number] Secondary hyperparathyroidism Type 2 diabetes mellitus with diabetic chronic kidney disease Anemia of renal disease Chronic kidney disease, stage III (moderate) Hyperlipidemia [id number] Hypomagnesemia Secondary hyperparathyroidism Type 2 diabetes mellitus with diabetic chronic kidney disease [facility] Work Phone: chief complaint+Reason for visit Narrative* Chief Complaint RENAL CKD PROGRESSIO N N18.30 E78.5 N25.81 N18.9 D63.1 I12.9 E11.22 N18.3 RENAL 6 Week F/U heart palpatations Reason for Visit Anemia of renal dise ase Chronic kidney disease, stage III (moderate) Hyperlipidemia [id number] Secondary hyperparathyroidism Type 2 diabetes mellitus with diabetic chronic kidney disease Anemia of renal disease Chronic kidney disease, stage III (moderate) Hyperlipidemia [id number] Hypomagnesemia Secondary hyperparathyroidism Type 2 diabetes mellitus with diabetic chronic kidney disease Heart palpitations [id number] Hypertensive urgency Slurred speech Type 2 diabetes mellitus with diabetic chronic kidney disease [facility] Work Phone: Discharge summary Author Kimberly Arteaga [facility] March 13, 2023 1:09pm Note Date/Time March 13, 2023 1:0 8pm [facility] [address] [place] [address] Discharge Summary Signed Patient: Anh Tejeda MR#: [id number] : 1950 Acct:[id number] Age/Sex: 72 / F Adm Date: 3 Loc: Room: [address] [place] [address]: Kimberly Arteaga MD Copies to: [...] % (Auto) 62.5, Lymph % (Auto) 28.5, U[place] % (Auto) 6.9, Eos % (Auto) 1.7, Baso % (Auto) 0.4, Nucleat RBC Rel Count 0.1, Neut # (Auto) 3.1, Lymph # (Auto) 1.4, [place] # (Auto) 0.3, Eos # (Auto) 0.1, [...] <Electronically signed by Kimberly Arteaga MD> 03/13/23 [id number] [facility] Work Phone: Evaluation + Plan note Future Appointments Appointment Date:06/12/2022 08:45:00 AM Scheduled Provider: Location:[facility] Appointment Type:Surgery FT Appointment Date:08/18/2022 11:45:00 AM Scheduled Provider:Jose Carlos Mattson MD Location:FT[facility]iology Clinic Appointment Type:Cardiology Follow Up (FT) Future Scheduled Tests Laboratory* TIBC Calculated 04/23/22 * Ferritin 04/23/22 * Folate Level 04/23/22 * Hepatic Function Panel 04/23/22 * Iron Level 04/23/22 * Reticulocyte Count 04/23/22 * Vitamin B12 Level 04/23/22 [facility] Evaluation + Plan note Future Appointments Appointment Date:08/18/2022 11:45:00 AM Scheduled Provider:Jsoe Carlos Mattson MD Location:FT.Cardiology Clinic Appointment Type:Cardiology Follow Up (FT) Future Scheduled Tests Laboratory* TIBC Calculated 04/23/22 * Ferritin 04/23/22 * Folate Level 04/23/22 * Hepatic Function Panel 04/23/22 * Iron Level 04/23/22 * Reticulocyte Count 04/23/22 * Vitamin B12 Level 04/23/22 [facility] Future App[facility]ments Appointment Date:09/19/2022 12:20:00 PM Scheduled Provider:Nisa Shepherd CNP Location:[facility] Appointment Type:[facility] Follow Up Future Scheduled Tests Laboratory* B-Type Natriuretic Peptide 09/02/22 * TIBC Calculated 04/23/22 * Ferritin 04/23/22 * Folate Level 04/23/22 * Hepatic Function Panel 04/23/22 * Iron Level 04/23/22 * Reticulocyte Count 04/23/22 * Vitamin B12 Level 04/23/22 [facility] Future Appointments Appointment Date:12/24/2022 10:20:00 AM Scheduled Provider:Nisa Shepherd CNP Location:[facility] Appointment Type:[facility] Follow Up Future Scheduled Tests Laboratory* B-Type Natriuretic Peptide 09/02/22 * TIBC Calculated 04/23/22 * Ferritin 04/23/22 * Folate Level 04/23/22 * Hepatic Function Panel 04/23/22 * Iron Level 04/23/22 * Reticulocyte Count 04/23/22 * Vitamin B12 Level 04/23/22 [facility] Future Appointments Appointment Date:02/03/2023 10:00:00 AM Scheduled Provider: Location:.[facility] Appointment Type:US Abdominal/Pelvis () Appointment Date:03/23/2023 09:20:00 AM Scheduled Provider:Nisa Shepherd CNP Location:[facility] Appointment Type:[facility] Follow Up Future Scheduled Tests [...] 02/03/23 * NM Gastric Emptying Study 12/24/22 [facility] Evaluation + Plan note Future Appointments Appointment Date:02/03/2023 10:00:00 AM Scheduled Provider: [facility] Appoint[facility] Type:US Abdominal/Pelvis (FT) Appointment Date:03/23/2023 09:20:00 AM Scheduled Provider:Nisa Shepherd CNP Location:[facility] Appointment Type:[facility] Follow Up Future Scheduled Tests [...] B12 Level 12/24/22 Radiology* US Liver 02/03/23 [facility] Future Appointments Appointment Date:04/22/2023 10:00:00 AM Scheduled Provider: Location:[facility] Appointment Type:Surgery FT Future Scheduled Tests Laboratory* B-Type Natriuretic Peptide 09/02/22 * TIBC Calculated 04/23/22 * Ferritin 04/23/22 * Folate Level 04/23/22 * Hepatic Function Panel 04/23/22 * Iron Level 04/23/22 * Magnesium Level 02/04/23 * Reticulocyte Count 04/23/22 * Vitamin B12 Level 04/23/22 [facility] Evaluation + Plan note Future Appointments Appointment Date:01/28/2024 09:00:00 AM Scheduled Provider: [facility] Appoint[facility] Type:US Abdominal/Pelvis () Appointment Date:02/29/2024 09:20:00 AM Scheduled Provider:Nisa Shepherd CNP Location:[facility] Appointment Type:[facility] Follow Up Future Scheduled Tests Laboratory* HCV RNA by PCR, Qn Rfx Arlet 12/08/23 * [id number] 12/08/23 * Ceruloplasmin 12/08/23 * Antimitochondrial Antibody, [...] * Transferrin 12/08/23 Radiology* US Liver 01/28/24 [facility] Evaluation + Plan note Future Appointments Appointment Date:02/29/2024 09:20:00 AM Scheduled Provider:Nisa Shepherd CNP Location:[facility] Appointment Type:[facility] Follow Up Diagnostic Tests Pending * [id number] 01/28/24 * MAXX w/Reflex if POS 01/28/24 [...] Future Scheduled Tests Laboratory* Magnesium Level 02/04/23 [facility] Future Appointments Appointment Date:02/29/2024 09:20:00 AM Scheduled Provider:Nisa Shepherd CNP Location:[facility] Appointment Type:[facility] Follow Up Future Scheduled Tests Laboratory* Magnesium Level 02/04/23 [facility] Future Appointments Appointment Date:09/29/2024 09:45:00 AM Scheduled Provider:Verónica Ugarte MD Location:[facility] Appointment Type:BADH Follow Up [facility] evaluation + Plan note Future Appointments Appointment Date:03/30/2025 09:30:00 AM Scheduled Provider:Verónica Ugarte MD Location:[facility] Appointment Type:BAD Follow Up [facility] evaluation + Plan note Future Appointments Appointment Date:03/30/2025 09:30:00 AM Scheduled Provider:Verónica Ugarte MD Location:[facility] Appointment Type:[facility] Follow Up Diagnostic Tests Pending * Alpha Fetoprotein Tumor Marker 03/27/25 [facility] evaluation noteNo assessment information available [facility] Work Phone: evaluation note* Diagnosis Anemia, unspecified type- Primary [facility] encounter [facility]* Diagnosis Iron deficiency anemia due to chronic blood loss Iron deficiency anemia secondary to blood loss (chronic) [facility] Anemia, unspecified type- Primary Iron deficiency anemia secondary to inadequate dietary iron intake [facility] Diagnosis Iron deficiency anemia due to chronic blood loss- Primary Iron deficiency anemia secondary to blood loss (chronic) [facility] Diagnosis Iron deficiency anemia due to chronic blood loss- Primary Iron deficiency anemia secondary to blood loss (chronic) [facility] Diagnosis Iron deficiency anemia due to chronic blood loss- Primary Iron deficiency anemia secondary to blood loss (chronic) [facility]* Diagnosis Iron deficiency anemia secondary to inadequate dietary iron intake- Primary [facility] Diagnosis Iron deficiency anemia secondary to inadequate dietary iron intake- Primary [facility]* Diagnosis Onset Date Resolution Status Acute UTI acute Chronic kidney disease, stage III (moderate) acute Diabetes acute Hypertensive urgency acute Paresthesias in right hand a cute Slurred speech acute Syncope acute [facility] Work Phone: evaluation note* Diagnosis Iron deficiency anemia secondary to inadequate dietary iron intake- Primary Stage 3b chronic kidney disease (HCC) [facility] Diagnosis Iron deficiency anemia secondary to inadequate dietary iron intake- Primary Stage 3b chronic kidney disease (HCC) documented in this encounter [facility] note* Diagnosis Stage 3b chronic kidney disease (HCC)- Primary Iron deficiency anemia secondary to inadequate dietary iron intake [facility]* Diagnosis Iron deficiency anemia due to chronic blood loss- Primary Iron deficiency anemia secondary to blood loss (chronic) [facility]* Diagnosis Iron deficiency anemia due to chronic blood loss- Primary Iron deficiency anemia secondary to blood loss (chronic) documented [facility] this encounter [facility]* Diagnosis Iron deficiency anemia, unspecified iron deficiency anemia type- Primary Anemia of chronic renal failure, unspecified CKD stage Thrombocytopenia (HCC) Thrombocytopenia, unspecified [facility]* Diagnosis Onset Date Resolution Status Anemia of renal disease acut e Chronic kidney disease, stage III (moderate) acute Hyperlipidemia acute [id number] acute Secondary hyperparathyroidism acute Type 2 diabetes mellitus wit h diabetic chronic kidney disease acute [facility] Work Phone: Evaluation note* Diagnosis Onset Date Resolution Status Anemia of renal disease acut e Chronic kidney disease, stage III (moderate) acute Hyperlipidemia acute [id number] acute Secondary hyperparathyroidism acute Type 2 diabetes mellitus wit h diabetic chronic kidney disease acute Anemia of renal disease acut e Chronic kidney disease, stage III (moderate) acute Hyperlipidemia acute [id number] acute Hypomagnesemia acute Secondary hyperparathyroidism acute Type 2 diabetes mellitus wit h diabetic chronic kidney disease acute [facility] Work Phone: Evaluation note* Diagnosis Iron deficiency anemia, unspecified iron deficiency anemia type- Primary Anemia of chronic renal failure, unspecified CKD stage [facility]* Diagnosis Onset Date Resolution Status Anemia of renal disease acut e Chronic kidney disease, stage III (moderate) acute Hyperlipidemia acute [id number] acute Secondary hyperparathyroidism acute Type 2 diabetes mellitus wit h diabetic chronic kidney disease acute Anemia of renal disease acut e Chronic kidney disease, stage III (moderate) acute Hyperlipidemia acute [id number] acute Hypomagnesemia acute Secondary hyperparathyroidism acute Type 2 diabetes mellitus wit h diabetic chronic kidney disease acute Heart palpitations acute [id number] acute Hypertensive urgency acute Slurred speech acute Type 2 diabetes mellitus wit h diabetic chronic kidney disease acute [facility] Work Phone: Evaluation note* Diagnosis Transient ischemic attack- Primary Unspecified transient cerebral ischemia Palpitations Polyneuropathy Unspecified hereditary and idiopathic peripheral neuropathy [facility] Diagnosis Onset Date Resolution Status Anemia of renal disease acut e Chronic kidney disease, stage III (moderate) acute Hyperlipidemia acute Hypomagnesemia acute Secondary hyperparathyroidism acute Heart palpitations resolved Slurred speech resolved [facility] Work Phone: Evaluation note* Diagnosis Iron deficiency anemia, unspecified iron deficiency anemia type- Primary Thrombocytopenia (HCC) Thrombocytopenia, unspecified Stage 3b chronic kidney disease (HCC) [facility]* Diagnosis Hearing loss, mixed, bilateral- Primary Mixed hearing loss, bilateral [facility]* Diagnosis Iron deficiency anemia, unspecified iron deficiency anemia type- Primary documented in this encounter [facility] note* Diagnosis Transient ischemic attack- Primary Unspecified transient cerebral ischemia Polyneuropathy Unspecified hereditary and idiopathic peripheral neuropathy Carpal tunnel syndrome, bilateral upper limbs [facility]* Diagnosis Iron deficiency anemia, unspecified iron deficiency anemia type- Primary Thrombocytopenia (HCC) Thrombocytopenia, unspecified Stage 3b chronic kidney disease (HCC) documented in this encounter [facility] note* Diagnosis Transient ischemic attack- Primary Unspecified transient cerebral ischemia Polyneuropathy Unspecified hereditary and idiopathic peripheral neuropathy Syncope and collapse Carpal tunnel syndrome, bilateral upper limbs [facility]* Diagnosis Anemia, unspecified type- Primary Iron deficiency anemia, unspecified iron deficiency anemia type Stage 3b chronic kidney disease (HCC) Anemia in stage 3a chronic kidney disease (HCC) documented in this encounter [facility] note* Diagnosis Anemia, unspecified type- Primary documented in this encounter [facility] general Narrative - Reported* Type Description Date Medical History Gastroesophageal ref lux disease, esophagitis presence not specified Medical History RLS (restless legs syndrome) Medical History Benign essential HTN Medical History Hypercholesterolemia Medical History Type 2 diabetes jonathan itus without complication, without long-term current use of insulin Medical History COLTEN (obstructive sleep apnea) Surgical History hysterectomy Surgical History cholecystectomy Surgical History knee arthroscopy [facility] Other Hospital course Narrative No data available for this section [facility] Hospital Discharge instructions No data available for this section [facility] Hospital Discharge instructions Additional Instructions Check blood glucose before meals and at [facility]timeBrown [facility] Work Phone: Progress note No data available for this section [facility] (narrative)No reason for referral information availableBrown Memorial Hospital Work Phone: Advance Directives No Advanced Directives Records Found [...] Z79.89/I12.9/M10.00/ E78.2/E11.22/E11.9/N18.3 Sleep apnea annual follow up Chief Complaint RENAL 6 Week F/U heart palpatations See order Reason for Visit Anemia of renal dise ase Chronic kidney disease, stage III (moderate) Hyperlipidemia Hypomagnesemia Secondary hyperparathyroidism Heart palpitations Slurred speech Chief Complaint Admit Date See order September 19, 2024 8 :41am g45.9 r00.2 October 06, 2024 12:33pm COLTEN/ ANNUAL November 14, 2024 12:57pm patient has orders December 15, 2024 9 :35am Reason for Visit Admit Date Essential (primary) [facility] 12:57[facility] Insomnia November 14, 2024 12:57pm Obstructive sleep apnea November 14, 2 024 12:57pm Restless leg syndrome November 14 12:57pm Type 2 diabetes mellitus wit h diabetic chronic kidney disease November 14, 2024 12:57pm Chief Complaint Admit Date g45.9 r00.2 October 06, 2024 12:33pm COLTEN/ ANNUAL November 14, 2024 12:57pm patient has orders December 15, 2024 9 :35am RENAL 6 MONTH F/U December 27, 2024 2:15pm Reason for Visit Admit Date Essential (primary) [facility] 12:57pm Insomnia November 14, 2024 12:57pm Obstructive sleep apnea November 14, 2 024 12:57pm Restless leg syndrome November 14 12:57pm Type 2 diabetes mellitus wit h diabetic chronic kidney disease November 14, 2024 12:57pm Anemia of renal disease December 27, 2 025 2:15pm Chronic kidney disease, stage III (moder ate) December 27, 2024 2:15pm Hyperlipidemia December 27, 2024 2:15pm Hypertension December 27, 2024 2:15pm Hypomagnesemia December 27, 2024 2:15pm Secondary hyperparathyroidism December 172024 2:15pm Type 2 diabetes mellitus wit h diabetic chronic kidney disease December 27, 2024 2:15pm Chief Complaint Admit Date g45.9 r00.2 October 06, 2024 12:33pm COLTEN/ ANNUAL November 14, 2024 12:57pm patient has orders December 15, 2024 9 :35am RENAL 6 MONTH F/U December 27, 2024 2:15pm e83.42 e78.5 n25.81 n18.9 d63.1 i12.9 e1 1.22 n18.3 December 28, 2024 9:23am Screening December 28, 2024 10:04am Chief Complaint Admit Date COLTEN/ ANNUAL November 14, 2024 12:57pm patient has orders December 15, 2024 9 :35am RENAL 6 MONTH F/U December 27, 2024 2:15pm e83.42 e78.5 n25.81 n18.9 d63.1 i12.9 e1 1.22 n18.3 December 28, 2024 9:23am Screening December 28, 2024 10:04am M48.062 February 08, 2025 9:5 5am Reason for Visit Admit Date Essential (primary) hypertension [facility] r 2023 12:57pm Insomnia November 14, 2024 12:57pm Obstructive sleep apnea November 14, 2 024 12:57pm Restless leg syndrome November 14 12:57pm Type 2 diabetes mellitus wit h diabetic chronic kidney disease November 14, 2024 12:57pm Anemia of renal disease December 27, 2 025 2:15pm Chronic kidney disease, stage III (moder ate) December 27, 2024 2:15pm Hyperlipidemia December 27, 2024 2:15pm Hypomagnesemia December 27, 2024 2:15pm Secondary hyperparathyroidism December 172024 2:15pm Type 2 diabetes mellitus wit h diabetic chronic kidney disease December 27, 2024 2:15pm Hypertensive chronic kidney disease with stage 1 through stage 4 chronic ki December 27, 2024 2:15pm Chief Complaint Admit Date R63.4 K21.9 D64.9 K74.00 June 08, 2025 12:08pm Chief Complaint Admit Date R63.4 K21.9 D64.9 K74.00 June 08, 2025 12:08pm E83.42 N25.81 E78.5 June 26, 2025 9: 19am Assessments No Assessments Information Available Medications Administered [...] sclerosis Unknown father Unknown Not Specified Unknown Relationship Condition Age at Onset Recorded Date/T elsie father Malignant neoplasm Unknown mother Diabetes mellitus Unknown Congestive heart failure Unknown Chronic obstructive pulmonary disease Unk nown Malignant neoplasm Unknown Cerebrovascular accident (CVA) Unknown brother Diabetes mellitus Unknown brother Multiple sclerosis Unknown father Unknown mother Unknown Summary Purpose Reason for Referral Specialty Diagnoses / Procedures Referred By Contac t Referred To Contact Cardiology Diagnoses Transient ischemic attack Palpitations Procedures Cardiac event monitor Queta Prieto, STARR [address] [place] [address] Referral ID Status Reason Start Date Expiration Date V isits Requested Visits Authorized [id number] Pending Review 08/16/2024 02/12/2025 1 1 Additional Source Comments Care Team (unrecognized sect ion and content) Team Status: Active Member Role Status Dates Vinayreji Matta , DO Primary Care Provider Active Team Status: Active Member Role Status Dates Vinay Matta , DO Primary Care Provider Active Start: June 08, 2025 Verónica Ugarte MD Referring Provider Active Start: June 08, 2025 Verónica Ugarte MD Other Provider Active Sta rt: June 08, 2025 Bradley Rowland MD Attending Provider Active Start: June 08, 2025 Team Status: Inactive Member Role Status Dates Vinay Matta , DO Primary Care Provider Active Start: June 26, 2025 End: June 26, 2025 Vinay Escalerahomer , DO Attending Provider Active St art: June 26, 2025 End: June 26, 2025 Marilyn Stewart MD Other Provider Active Start: 2024 End: June 26, 2025 Team Status: Inactive Member Role Status Dates Vinay Escalerahomer , DO Primary Care Provider, Attending P rovider Active Team Status: Inactive Member Role Status Dates Vinay Matta , DO Primary Care Provider, Referring P rovider Active Referral Self Attending Provider Active Team Status: Inactive Member Role Status Dates Vinay Jwhomer , DO Primary Care Provider Active Anand Yusuf PA-C Emergency Provider Active Team Status: Inactive Member Role Status Dates Vinay Matta , DO Primary Care Provider Active Anand Yusuf PA-C Attending Provider Active Global Program Director Relationship Specialty Start Date End Date Nisa Shepherd [facility] [address] [place] [address] PCP - General Family Medicine 09/22/22 Global Program Director Relationship Specialty Start Date End Date Nisa Shepherd [facility] [address] [place] [address] PCP - General Family Medicine 09/22/22 Global Program Director Relationship Specialty Start Date End Date Nisa Shepherd [facility] [address] [facility] [place] [address] PCP - General Family Medicine 09/22/22 Global Program Director Relationship Specialty Start Date End Date Nisa Shepherd [facility] [address] [place] [address] PCP - General Family Medicine 09/22/22 Team Status: Inactive Member Role Status Dates Vinay Matta , DO Primary Care Provider Active Anh Delcid NP Attending Provider Active Global Program Director Relationship Specialty Start Date End Date Nisa Shepherd CNP [address] [place] [address] PCP - General Family Medicine 09/22/22 Global Program Director Relationship Specialty Start Date End Date Nisa Shepherd CNP [address] [place] [address] PCP - General Family Medicine 09/22/22 Global Program Director Relationship Specialty Start Date End Date Nisa Shepherd CNP [address] [place] [address] PCP - General Family Medicine 09/22/22 Global Program Director Relationship Specialty Start Date End Date Nisa Shepherd CNP [address] [place] [address] PCP - General Family Medicine 09/22/22 Global Program Director Relationship Specialty Start Date End Date Nisa Shepherd CNP [address] [place] [address] PCP - General Family Medicine 09/22/22 Global Program Director Relationship Specialty Start Date End Date Nisa Shepherd CNP [address] [place] [address] PCP - General Family Medicine 09/22/22 Team Status: Inactive Member Role Status Dates Vinay Matta , DO Primary Care Provider Active Rafael Edouard MD Attending Provider Active Global Program Director Relationship Specialty Start Date End Date Nisa Shepherd CNP [address] [place] [address] PCP - General Family Medicine 09/22/22 Team Status: Inactive Member Role Status Dates Vinay Matta , DO Primary Care Provider Active Anthony Rose MD Emergency Provider Active Kimberly Arteaga MD Admit Provider, Attending Provider Active Krissy Easton , DO Other Provider Active Team Status: Active Member Role Status Dates Vinay Matta , DO Primary Care Provider Active FERDINAND Amato-BC Attending Provider Active Team Status: Inactive Member Role Status Dates Vinay Matta , DO Primary Care Provider Active FERDINAND Amato- Attending Provider Active Global Program Director Relationship Specialty Start Date End Date Nisa Shepherd CNP [address] [place] [address] PCP - General Family Medicine 09/22/22 Global Program Director Relationship Specialty Start Date End Date Nisa Shepherd CNP [address] [place] [address] PCP - General Family Medicine 09/22/22 Global Program Director Relationship Specialty Start Date End Date Nisa Shepherd CNP [address] [place] [address] PCP - General Family Medicine 09/22/22 Global Program Director Relationship Specialty Start Date End Date Nisa Shepherd CNP [address] [place] [address] PCP - General Family Medicine 09/22/22 Global Program Director Relationship Specialty Start Date End Date Nsia Shepherd CNP [address] [place] [address] PCP - General Family Medicine 09/22/22 Global Program Director Relationship Specialty Start Date End Date Nisa Shepherd CNP [address] [place] [address] PCP - General Family Medicine 09/22/22 Global Program Director Relationship Specialty Start Date End Date Nisa Shepherd CNP [address] [place] [address] PCP - General Family Medicine 09/22/22 Team Status: Inactive Member Role Status Dates Vinay Matta DO Primary Care Provide r, Attending Provider Active Start: February 11, 2024 End: February 11, 2024 Global Program Director Relationship Specialty Start Date End Date Nisa Shepherd CNP [address] [place] [address] PCP - General Family Medicine 09/22/22 Global Program Director Relationship Specialty Start Date End Date Nisa Shepherd JENY [address] [place] [address] PCP - General Family Medicine 09/22/22 Global Program Director Relationship Specialty Start Date End Date Nisa Shepherd JENY [address] [place] [address] PCP - General Family Medicine 09/22/22 Global Program Director Relationship Specialty Start Date End Date Nisa Shepherd [employer] [address] [place] [address] PCP - General Family Medicine 09/22/22 Team Status: Inactive Member Role Status Dates Vinay Matta DO Primary Care Provide r, Referring Provider Active Start: May 11, 2024 End: May 11, 2024 Marilyn Stewart MD Attending Provider Active Start : May 11, 2024 End: May 11, 2024 Team Status: Inactive Member Role Status Dates Vinay Matta DO Primary Care Provider Active Start: May 24, 2024 End: May 24, 2024 Marilyn Stewart MD Attending Provider Active Start : May 24, 2024 End: May 24, 2024 Vinay Matta DO Other Provider Active Star t: May 24, 2024 End: May 24, 2024 Team Status: Inactive Member Role Status Dates Vinay Matta DO Primary Care Provider Active Start: July 04, 2024 End: July 04, 2024 Marilyn Stewart MD Attending Provider Active Start : July 04, 2024 End: July 04, 2024 Global Program Director Relationship Specialty Start Date End Date Nisa Shepherd CNP [address] [place] [address] [place] [address] PCP - General Family Medicine 09/22/22 Team Status: Active Member Role Status Dates Vinay Matta DO Primary Care Provider Active Start: July 21, 2024 Bakari Barboza DO Emergency Provider Active Sta rt: July 21, 2024 Farrukh Coughlin DO RES Active Start: July Comfort Monteiro MD Admit Provider, A ttending Provider Active Start: July 21, 2024 Ottoniel Bland DO Other Provider Active Start: July 21, 2024 Team Status: Inactive Member Role Status Dates Vinay Matta DO Primary Care Provider Active Start: July 21, 2024 End: July 22, 2024 Bakari Barboza DO Emergency Provider Active Sta rt: July 21, 2024 End: July 22, 2024 Farrukh Coughlin DO RES Active Start: July End: July 22, 2024 Comfort Monteiro MD Admit Provider, A ttending Provider Active Start: July 21, 2024 End: July 22, 2024 Ottoniel Bland DO Other Provider Active Start: July 21, 2024 End: July 22, 2024 Global Program Director Relationship Specialty Start Date End Date Vinay Matta [address] [facility] [place] [address] PCP - General Family Medicine 01/13/24 Trae Mccarty MD [address] [place] [address] PCP - Devoted 11/16/23 Global Program Director Relationship Specialty Start Date End Date Vinay Matta [address] [place] [address] PCP - General Family Medicine 01/13/24 Trae Mccarty MD [address] [place] [address] PCP - Devoted 11/16/23 Team Status: Inactive Member Role Status Dates Vinay Matta DO Primary Care Provide r, Attending Provider Active Start: September 19, 2024 End: September 19, 2024 Global Program Director Relationship Specialty Start Date End Date Nisa Shepherd CNP [address] [place] [address] PCP - General Family Medicine 09/22/22 Global Program Director Relationship Specialty Start Date End Date Nisa Shepherd CNP [facility] [place] [address] PCP - General Family Medicine 09/22/22 Global Program Director Relationship Specialty Start Date End Date Vinay Matta [address] [place] [address] PCP - General Family Medicine 01/13/24 Trae Mccarty MD [address] [place] [address] PCP - Devoted 11/16/23 Team Status: Inactive Member Role Status Dates Vinay Matta DO Primary Care Provider Active Start: October 06, 2024 End: October 06, 2024 ISAMAR Lara Attending Provider Active Start: October 06, 2024 End: October 06, 2024 Team Status: Inactive Member Role Status Dates Vinay Matta DO Primary Care Provider Active Start: November 14, 2024 End: November 14, 2024 Anh Delcid NP Attending Provider Active Start: November 14, 2024 End: November 14, 2024 Team Status: Inactive Member Role Status Dates Vinay Matta DO Primary Care Provide r, Attending Provider Active Start: December 15, 2024 End: December 15, 2024 Team Status: Inactive Member Role Status Dates Vinay Matta DO Primary Care Provider Active Start: December 27, 2024 End: December 27, 2024 Marilyn Stewart MD Attending Provider Active Start : December 27, 2024 End: December 27, 2024 Team Status: Inactive Member Role Status Dates Vinay Matta DO Primary Care Provide r, Attending Provider Active Start: December 28, 2024 End: December 28, 2024 Marilyn Stewart MD Referring Provider Active Start : December 28, 2024 End: December 28, 2024 Team Status: Inactive Member Role Status Dates Vinay Matta DO Primary Care Provide r, Referring Provider Active Start: December 28, 2024 End: December 28, 2024 Referral Self Attending Provider Active Start: Reinaldo hardin 2024 End: December 28, 2024 Global Program Director Relationship Specialty Start Date End Date Vinay Matta Josse [address] [facility] [place] [address] PCP - General Family Medicine 01/13/24 Trae Mccarty MD [address] [place] [address] PCP - Devoted 11/16/23 Global Program Director Relationship Specialty Start Date End Date Gaudencio Mattareji Loaiza [address] [place] [address] PCP - General Family Medicine 01/13/24 Trae Mccarty MD [address] [place] [address] PCP - Devoted 11/16/23 Global Program Director Relationship Specialty Start Date End Date Nisa Shepherd CNP [address] [place] [address] PCP - General Family Medicine 09/22/22 Global Program Director Relationship Specialty Start Date End Date Nisa Shepherd CNP [address] [place] [address] PCP - General Family Medicine 09/22/22 Team Status: Inactive Member Role Status Dates Vinay Matta DO Primary Care Provider Active Start: February 08, 2025 End: February 08, 2025 Tessy Bruner MD Attending Provider Active Start: February 08, 2025 End: February 08, 2025 Global Program Director Relationship Specialty Start Date End Date Vinay Matta [address] [place] [address] PCP - General Family Medicine 01/13/24 Trae Mccarty MD [address] [place] [address] PCP - Devoted 11/16/23 Global Program Director Relationship Specialty Start Date End Date Nisa Shepherd CNP [address] [place] [address] PCP - General Family Medicine 09/22/22 Team Status: Inactive Member Role Status Dates Vinay Matta DO Primary Care Provider Active Start: June 08, 2025 End: June 08, 2025 Verónica Ugarte MD Attending Provider Active Start: June 08, 2025 End: June 08, 2025 Verónica Ugarte MD Referring Provider Active Start: June 08, 2025 End: June 08, 2025 Goals (unrecognized section and content) Goals may be documented in a n alternate section Source Comments (unrecognize d section and content) In the event this informatio n is protected by the Federal Confidentiality of Alcohol and Drug Abuse Patient Records regulations: The Federal rules restrict any use of the information to criminally investigate or prosecute any alcohol or drug abuse patient.[facility] the event this information is protected by the Federal Confidentiality of Alcohol and Drug Abuse Patient Records regulations: The Federal rules restrict any use of the information to criminally investigate or prosecute any alcohol or drug abuse patient.[facility] HospitalIn the event this information is protected by the Federal Confidentiality of Alcohol and Drug Abuse Patient Records regulations: The Federal rules restrict any use of the information to criminally investigate or prosecute any alcohol or drug abuse patient.[facility]In the event this information is protected by the Federal Confidentiality of Alcohol and Drug Abuse Patient Records regulations: The Federal rules restrict any use of the information to criminally investigate or prosecute any alcohol or drug abuse patient.[facility] HospitalIn the event this information is protected by the Federal Confidentiality of Alcohol and Drug Abuse Patient Records regulations: The Federal rules restrict any use of the information to criminally investigate or prosecute any alcohol or drug abuse patient.[facility] HospitalIn the event this information is protected by the Federal Confidentiality of Alcohol and Drug Abuse Patient Records regulations: The Federal rules restrict any use of the information to criminally investigate or prosecute any alcohol or drug abuse patient.[facility] HospitalIn the event this information is protected by the Federal Confidentiality of Alcohol and Drug Abuse Patient Records regulations: The Federal rules restrict any use of the information to criminally investigate or prosecute any alcohol or drug abuse patient.[facility] HospitalIn the event this information is protected by the Federal Confidentiality of Alcohol and Drug Abuse Patient Records regulations: The Federal rules restrict any use of the information to criminally investigate or prosecute any alcohol or drug abuse patient.[facility] HospitalIn the event this information is protected by the Federal Confidentiality of Alcohol and Drug Abuse Patient Records regulations: The Federal rules restrict any use of the information to criminally investigate or prosecute any alcohol or drug abuse patient.[facility] HospitalIn the event this information is protected by the Federal Confidentiality of Alcohol and Drug Abuse Patient Records regulations: The Federal rules restrict any use of the information to criminally investigate or prosecute any alcohol or drug abuse patient.[facility] HospitalIn the event this information is protected by the Federal Confidentiality of Alcohol and Drug Abuse Patient Records regulations: The Federal rules restrict any use of the information to criminally investigate or prosecute any alcohol or drug abuse patient.[facility] HospitalIn the event this information is protected by the Federal Confidentiality of Alcohol and Drug Abuse Patient Records regulations: The Federal rules restrict any use of the information to criminally investigate or prosecute any alcohol or drug abuse patient.[facility] HospitalIn the event this information is protected by the Federal Confidentiality of Alcohol and Drug Abuse Patient Records regulations: The Federal rules restrict any use of the information to criminally investigate or prosecute any alcohol or drug abuse patient.[facility] HospitalIn the event this information is protected by the Federal Confidentiality of Alcohol and Drug Abuse Patient Records regulations: The Federal rules restrict any use of the information to criminally investigate or prosecute any alcohol or drug abuse patient.[facility] HospitalIn the event this information is protected by the Federal Confidentiality of Alcohol and Drug Abuse Patient Records regulations: The Federal rules restrict any use of the information to criminally investigate or prosecute any alcohol or drug abuse patient.[facility] HospitalIn the event this information is protected by the Federal Confidentiality of Alcohol and Drug Abuse Patient Records regulations: The Federal rules restrict any use of the information to criminally investigate or prosecute any alcohol or drug abuse patient.[facility] HospitalIn the event this information is protected by the Federal Confidentiality of Alcohol and Drug Abuse Patient Records regulations: The Federal rules restrict any use of the information to criminally investigate or prosecute any alcohol or drug abuse patient.[facility] HospitalIn the event this information is protected by the Federal Confidentiality of Alcohol and Drug Abuse Patient Records regulations: The Federal rules restrict any use of the information to criminally investigate or prosecute any alcohol or drug abuse patient.[facility] HospitalIn the event this information is protected by the Federal Confidentiality of Alcohol and Drug Abuse Patient Records regulations: The Federal rules restrict any use of the information to criminally investigate or prosecute any alcohol or drug abuse patient.[facility] HospitalIn the event this information is protected by the Federal Confidentiality of Alcohol and Drug Abuse Patient Records regulations: The Federal rules restrict any use of the information to criminally investigate or prosecute any alcohol or drug abuse patient.[facility] HospitalIn the event this information is protected by the Federal Confidentiality of Alcohol and Drug Abuse Patient Records regulations: The Federal rules restrict any use of the information to criminally investigate or prosecute any alcohol or drug abuse patient.[facility] HospitalIn the event this information is protected by the Federal Confidentiality of Alcohol and Drug Abuse Patient Records regulations: The Federal rules restrict any use of the information to criminally investigate or prosecute any alcohol or drug abuse patient.[facility] HospitalIn the event this information is protected by the Federal Confidentiality of Alcohol and Drug Abuse Patient Records regulations: The Federal rules restrict any use of the information to criminally investigate or prosecute any alcohol or drug abuse patient.[facility] HospitalIn the event this information is protected by the Federal Confidentiality of Alcohol and Drug Abuse Patient Records regulations: The Federal rules restrict any use of the information to criminally investigate or prosecute any alcohol or drug abuse patient.[facility] HospitalIn the event this information is protected by the Federal Confidentiality of Alcohol and Drug Abuse Patient Records regulations: The Federal rules restrict any use of the information to criminally investigate or prosecute any alcohol or drug abuse patient.[facility] HospitalIn the event this information is protected by the Federal Confidentiality of Alcohol and Drug Abuse Patient Records regulations: The Federal rules restrict any use of the information to criminally investigate or prosecute any alcohol or drug abuse patient.[facility] HospitalIn the event this information is protected by the Federal Confidentiality of Alcohol and Drug Abuse Patient Records regulations: The Federal rules restrict any use of the information to criminally investigate or prosecute any alcohol or drug abuse patient.[facility] HospitalIn the event this information is protected by the Federal Confidentiality of Alcohol and Drug Abuse Patient Records regulations: The Federal rules restrict any use of the information to criminally investigate or prosecute any alcohol or drug abuse patient.[facility] HospitalIn the event this information is protected by the Federal Confidentiality of Alcohol and Drug Abuse Patient Records regulations: The Federal rules restrict any use of the information to criminally investigate or prosecute any alcohol or drug abuse patient.[facility] HospitalIn the event this information is protected by the Federal Confidentiality of Alcohol and Drug Abuse Patient Records regulations: The Federal rules restrict any use of the information to criminally investigate or prosecute any alcohol or drug abuse patient.[facility] HospitalIn the event this information is protected by the Federal Confidentiality of Alcohol and Drug Abuse Patient Records regulations: The Federal rules restrict any use of the information to criminally investigate or prosecute any alcohol or drug abuse patient.[facility] HospitalIn the event this information is protected by the Federal Confidentiality of Alcohol and Drug Abuse Patient Records regulations: The Federal rules restrict any use of the information to criminally investigate or prosecute any alcohol or drug abuse patient.[facility] HospitalIn the event this information is protected by the Federal Confidentiality of Alcohol and Drug Abuse Patient Records regulations: The Federal rules restrict any use of the information to criminally investigate or prosecute any alcohol or drug abuse patient.[facility] HospitalIn the event this information is protected by the Federal Confidentiality of Alcohol and Drug Abuse Patient Records regulations: The Federal rules restrict any use of the information to criminally investigate or prosecute any alcohol or drug abuse patient.[facility] HospitalIn the event this information is protected by the Federal Confidentiality of Alcohol and Drug Abuse Patient Records regulations: The Federal rules restrict any use of the information to criminally investigate or prosecute any alcohol or drug abuse patient.[facility] HospitalIn the event this information is protected by the Federal Confidentiality of Alcohol and Drug Abuse Patient Records regulations: The Federal rules restrict any use of the information to criminally investigate or prosecute any alcohol or drug abuse patient.[facility] HospitalIn the event this information is protected by the Federal Confidentiality of Alcohol and Drug Abuse Patient Records regulations: The Federal rules restrict any use of the information to criminally investigate or prosecute any alcohol or drug abuse patient.[facility] Reason for Visit (unrecogniz ed section and content) Reason Comments Anemia New patient consulta tion Reason Comments Results, Lab Reason Comments Benefits Investigation Reason Comments Anemia Specialty Diagnoses / Procedures Referred By Contangélica t Referred To Contact Diagnoses Iron deficiency anemia due to chronic blood loss Procedures IRON SUCROSE INJECTION PER 1 MG Henry Walker MD [address] [place] [address] Braden Treat Jarred [address] [place] [address] Referral ID Status Reason Start Date Expiration Date V isits Requested Visits Authorized [id number] Waiting for Response 10/06/2022 01/04/2023 1 1 Referral ID Status Reason Start Date Expiration Date V isits Requested Visits Authorized [id number] Authorized 10/06/2022 11/15/2022 3 3 Reason Comments [...] PER 1 MG Daksha Bridges PA-C [address] [place] [address] Braden Treat [facility] [address] [place] [address] Referral ID Status Reason Start Date Expiration Date V isits Requested Visits Authorized [id number] Authorized 02/01/2024 11/15/2024 0 99 Reason Comments Anemia Stage 3b chronic kidney disease Reason Comments Lab Orders Reason Comments Transient Ischemic Attack Reason Onset Date Comments Results, Lab 01/09/2025 Reason Onset Date Comments labs/follow up 04/11/2025 INFORMATION SOURCE (unrecogn ized section and content) DATE CREATED AUTHOR 03/30/2023 [facility] DATE CREATED AUTHOR AUTHOR'S ORGANIZ ATION 05/12/2023 [facility] DATE CREATED AUTHOR AUTHOR'S ORGANIZ ATION 03/27/2025 [facility] DATE CREATED AUTHOR AUTHOR'S ORGANIZ ATION 03/28/2025 [facility] DATE CREATED AUTHOR AUTHOR'S ORGANIZ ATION 04/01/2025 [facility] DATE CREATED AUTHOR AUTHOR'S ORGANIZ ATION 04/26/2025 [facility] DATE CREATED AUTHOR AUTHOR'S ORGANIZ ATION 05/10/2025 [facility] DATE CREATED AUTHOR AUTHOR'S ORGANIZ ATION 06/09/2025 [facility] DATE CREATED AUTHOR AUTHOR'S ORGANIZ ATION 06/20/2025 [facility] DATE CREATED AUTHOR AUTHOR'S ORGANGARCÍA ATION 06/27/2025 [facility] Inactive Administered Medications - up to 3 most recent administrations Administered Medications (un recognized section and content) Medication Order MAR Action Action Date Dose Rate Site iron sucrose 300 mg in NaCl 0.9% 250 mL (VENOFER) 300 mg, INTRAVENOUS, at 166.67 mL/hr, Administer over 90 Minutes, ONCE, 1 dose, On [place] 02/18/24 at 1000, Please conduct a 30 minute [...] BE BASED ON THE PRIMARY CLINICAL RECORDS. [employer] provides no warranty or guarantee of the accuracy or completeness of information in this document.
--- NOTE | 2025-06-29 14:32 | PM.WCHP ---
Wound Care H&P: HPI History of Present Illness Narrative: The patient is a 74-year-old female with history of type 2 diabetes, last hemoglobin A1c is unknown, who presents for routine nail care. She reports having right lateral foot pain after doing some yardwork this week. She denies injury otherwise. [facility] Medical History (Updated 03/23/25 @ 17:54 by KARO Herman) Anemia ?D64.9 - Anemia, unspecified (ICD-10) Hearing deficit ?H91.90 - Unspecified hearing loss, unspecified ear (ICD-10) Carpal tunnel syndrome ?G56.00 - Carpal tunnel syndrome, unspecified upper limb (ICD-10) Acid reflux ?K21.9 - Gastro-esophageal reflux disease without esophagitis (ICD-10) Diabetes ?E11.9 - Type 2 diabetes mellitus without complications (ICD-10) Kidney stone ?N20.0 - Calculus of kidney (ICD-10) COLTEN on CPAP ?G47.33 - Obstructive sleep apnea (adult) (pediatric) (ICD-10) Sleep apnea ?G47.30 - Sleep apnea, unspecified (ICD-10) High cholesterol ?E78.00 - Pure hypercholesterolemia, unspecified (ICD-10) Palpitations ?R00.2 - Palpitations (ICD-10) HTN (hypertension) ?I10 - Essential (primary) hypertension (ICD-10) Surgical History History of eye surgery ?Z98.890 - Other specified postprocedural states (ICD-10) History of carpal tunnel release ?Z98.890 - Other specified postprocedural states (ICD-10) History of hysterectomy ?Z90.710 - Acquired absence of both cervix and uterus (ICD-10) Hx of cholecystectomy ?Z90.49 - Acquired absence of other specified parts of digestive tract (ICD-10) Social History Smoking status: Never smoker Meds Home Medications and Allergies Home Medications ?Medication ?Instructions ?Recorded ?Confirmed ?Type allopurinol 300 mg tablet 300 mg PO DAILY 01/21/24 03/20/25 History atenolol 50 mg tablet 50 mg PO Q24H 01/21/24 03/20/25 History atorvastatin 20 mg tablet 20 mg PO DAILY 01/21/24 03/20/25 History gabapentin 300 mg capsule 300 mg PO TID 01/21/24 03/20/25 History glimepiride 2 mg tablet 2 mg PO BID 01/21/24 03/20/25 History lisinopril 20 1 tab PO DAILY 01/21/24 03/20/25 History mg-hydrochlorothiazide 12.5 mg tablet magnesium oxide 400 mg (241.3 mg 400 mg PO DAILY 01/21/24 03/20/25 History magnesium) tablet ropinirole 2 mg tablet 2 mg PO DAILY 01/21/24 03/20/25 History sitagliptin phosphate 50 mg tablet 50 mg PO DAILY 01/21/24 03/20/25 History (Januvia) ascorbic acid (vitamin C) 500 mg 500 mg PO DAILY 04/07/24 03/20/25 History chewable tablet (Acerola C) aspirin 81 mg tablet,delayed 81 mg PO DAILY 04/07/24 03/20/25 History release (Adult Low Dose Aspirin) cholecalciferol (vitamin D3) 25 1,000 unit PO DAILY 04/07/24 03/20/25 History mcg (1,000 unit) chewable tablet (VitaJoy Daily D) mecobalamin (vitamin B12) 1,000 1,000 mcg PO DAILY 04/07/24 03/20/25 History mcg chewable tablet omeprazole 20 mg capsule,delayed 20 mg PO DAILY 01/10/25 03/20/25 History release pioglitazone 15 mg tablet 15 mg PO BID 01/10/25 03/20/25 History resmetirom 80 mg tablet (Rezdiffra) 80 mg PO DAILY 01/10/25 02/20/25 History baclofen 10 mg tablet 10 mg PO Q12H 02/15/25 03/20/25 History loratadine 10 mg tablet (Claritin) 10 mg PO DAILY 02/20/25 03/20/25 History Allergies Allergy/AdvReac Type Severity Reaction Status Date / Time codeine AdvReac Intermediate gi upset Verified 03/20/25 09:38 Exam Narrative: Exam Narrative: Derm: Toenails 1 through 10 are elongated, thickened, mycotic. No ulcerative or preulcerative lesions are noted. Skin is diffusely dry. Vascular: DP pulses are faintly palpable bilaterally. PT pulses are nonpalpable. Capillary refills less than 3 seconds bilaterally. Varicosities are present superficially. There is 2+ nonpitting edema of both lower legs and ankles. Digital hair is absent bilaterally. Neuro: Protective sensation was tested with a monofilament in both feet. The patient was able to detect 3/5 areas tested on the right and 4/5 areas tested on the left. Vibratory sensation is absent bilaterally. Achilles deep tendon reflexes are absent bilaterally. Musculoskeletal: No gross deformity. No pain with palpation. Assessment and Plan Assessment and Plan (1) Tinea unguium: (2) Diminished pulses in lower extremity: (3) Type 2 diabetes mellitus with diabetic neuropathy, unspecified: Plan Routine nail care performed. Follow-up in 3 months. She was encourgaed to wear supportive shoes and take tylenol for her lateral foot/ankle pain. If it does not improve in a few days she was encouraged to follow up with Dr. Mata in his podiatry office. Acute Procedures Podiatry Nail Debridement Class B Findings Absent posterior tibial pulse: bilateral Advanced trophic changes as evidenced by any three of the following: decreased hair growth, nail changes (thickening) and skin texture (thin or shiny) Class C Findings Claudication: No Temperature changes: No Edema: Yes Nail debridement paresthesia (abnormal spontaneous sensations in the feet): No Burning: No Qualifies If: Qualifiers If:: A patient qualifies for nail debridement if they have: 1 class A finding (Q7) 2 class B findings (Q8) OR 1 class B & 2 class C findings in addition to a primary condition (Q9) Nail Procedure Nail Procedure Time out: Yes Nail procedure: other (Toenail debridement toes 1 through 10) Number of affected nails: 10 Location (toes): left and right Procedure successful: Yes Patient tolerated procedure: well and no complications Additional comments: Toenails 1 through 10 were sharply debrided without incident with nail nippers.
== END 2025-06-29 13:40 | disposition home or self-care (01) ==
LOC: WC 13:40
PROVIDERS: PCP Family Medicine; Visit Provider Physician Assistant
DX: B35.1 Tinea unguium (principal); R29.898 Other symptoms and signs involving the musculoskeletal system; E11.40 Type 2 diabetes mellitus with diabetic neuropathy, unspecified
CPT/HCPCS: 11721

== ENCOUNTER 2025-09-27 09:02 | Outpatient (OUT) | payer OTHER, SELFPAY ==
--- OUTSIDE RECORDS SUMMARY | 2025-09-27 09:06 | XMS_ITS | Clinical Summary ---
Author Organization [facility] Address [address] [place] [address] Care Team Providers Care Emergency Nurse Name Role Phone Candelario Sosa Primary Care Provider [phone] Trae Mccarty MD Unavailable [phone] Allergies Active AllergyReactionsCriticalityNoted GbtnYoribumuWjywlhdlfhyoi96/05/2023 Acetaminophen-TslffubMhgztKptx13/16/2022 pt states she is unwilling to try even plain tylenol after this experience even though she states she took tylenol prior to this and had no problems UhhazqjGevwx07/11/2022 Upset stomach Medications MedicationSigDispense QuantityRefillsLast FilledStart DateEnd DateStatus allopurinol (Zyloprim) 300 MG tablet Take 300 mg by mouth DailyActive aspirin 81 MG EC tablet Take 81 mg by mouth 1 (one) time each day at the same timeActive atenolol (Tenormin) 50 MG tablet Take 50 mg by mouth Daily for blood pressureActive atorvastatin (Lipitor) 20 MG tablet Take 20 mg by mouth Daily for cholesterolActive cholecalciferol (Vitamin D-3) 25 MCG (1000 UT) tablet Take 1,000 Units by mouth in the morning.Active diclofenac (Voltaren) 75 MG EC tablet Take 75 mg by mouth in the morning.Active furosemide (Lasix) 20 MG tablet Take 20 mg by mouth in the morning.Active glimepiride (Amaryl) 2 MG tablet Take 2 mg by mouth in the morning and 2 mg before bedtime. for diabetes.Active Fluzone High-Dose Quadrivalent syringe Inject 0.7 mL into the shoulder, thigh, or buttocks 1 (one) time11/25/2023ctive lisinopril-hydroCHLOROthiazide 20-12.5 MG tablet Take 1 tablet by mouth Daily for blood pressureActive magnesium oxide (Mag-Ox) 400 (240 Mg) MG tablet Take 400 mg by mouth in the morning and 400 mg before bedtime.3Active metFORMIN (Glucophage) 1000 MG tablet Take 1,000 mg by mouth in the morning and 1,000 mg before bedtime. for diabetes. Active omeprazole (PriLOSEC) [address] capsule Take 20 mg by mouth in the morning.Active Januvia 50 MG tablet Take 50 mg by mouth Daily for diabetesActive rOPINIRole (Requip) 2 MG tablet Indications:Other polyneuropathyTake 1 tablet (2 mg) by mouth at bedtime 90 tablet ctive gabapentin (Neurontin) 300 MG capsule Indications:Other polyneuropathyTake 1 capsule (300 mg) by mouth in the morning and 1 capsule (300 mg) in the evening and 1 capsule(300 mg) before bedtime. 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 She also has been told she has history of sciatica on the right leg with significant neuropathy. EMGs were recommended outpatient to further evaluate paresthesia in RUE and lower extremities. Balance evvlmgi0403/28/20247380Ukhyriuapbgofw91/13/2024 Overview (07/20/2024): She also has been told [...] falls and the fat that she has mu ltiple risk factors that increases her chance of falls. We discussed fall precautions at length including taking up throw rugs, changing position slowly, maintaining hydration, having a light on at night, grab bars in the shower and ensuring pets are not a tripping adan if applicable. Autonomic alylkttptul94/13/2024eripheral vlryghgqyw82/13/2024arpal tunnel syndrome, bilateral upper limbs03/28/2024arpal tunnel syndrome of right wrist 03/28/2024 Overview [...] on this for now. Mixed hearing loss, qqqdkouhf52/27/2024Tympanic membrane central perforation, gihanougv01/27/2024cquired hallux valgus of right foot02/02/2024cquired hammer toe deformity of lesser toe of right foot02/02/2024iabetes /19/2024 Neuropathy of lower yaoimfjtn08/19/2024Type 2 diabetes mellitus without complication, without long-term current use of dwiscmh5002/02/2024Stage 3b chronic kidney jcnqdap2901/29/2024Iron deficiency anemia due to chronic blood loss 10/03/2022GERD (gastroesophageal reflux disease)09/05/2010History of malignant neoplasm of skin09/05/20100546Likrmcjyhnn18/21/2010symptomatic varicose veins 09/05/2010Depressive vjzjbpyr96/21/2010Essential iknbrjcqldba88/21/2010 Family History Medical HistoryRelationNameCommentsDiabetesBrotherHeart diseaseBrother HypertensionBrotherStrokeBrotherCancerFatherHypertensionFatherCancerMother DiabetesMotherHeart diseaseMotherHypertensionMotherStrokeMotherRelationName EmjqhkBajmwsxaRiztoiip4ZeibxdVkzylvhpIguxrrDqmihwda Social History Tobacco UseTypesPacks/DayYears UsedDateSmoking Tobacco: NeverSmokeless Tobacco: Never Tobacco Cessation:Counseling Given: Not Answered Alcohol UseStandard Drinks/WeekCommentsDefer0 (1 standard drink = 0.6 oz pure alcohol)caffeine intake: 1-2 cups per dayCommentsUnknownSex and Gender InformationValueDate RecordedSex Assigned at ZbvwwBimhkf20/26/2024 11:23 AM EST Legal FznBslqpj96/15/2023 7:09 PM EDTGender IyxvsopmJheyjk46/26/2024 11:23 AM ESTSexual OrientationChoose not to qvnbihwt38/26/2024 11:23 AM EST Last Filed Vital Signs Vital SignReadingTime TakenCommentsBlood Hyndodzt001/68003/06/2025 9:47 AM EDT Fnswn041708/16/2024 8:51 AM EKEIztrtgszwln11.5 ??C (97.7 ??F)02/15/2024 10:12 AM EDTRespiratory Rate--Oxygen Dieehhowgu75%03/29/2024 2:36 PM EDTInhaled Oxygen Concentration--Ehgjtu19.4 kg (217 lb)03/06/2025 9:47 AM HTUHufema663.9 cm (5' 1 )03/06/2025 9:47 AM EDTBody Mass Deqlx096103/06/2025 9:47 AM EDT Plan of Treatment Health MaintenanceDue DateLast DoneCommentsDiabetes: Hemoglobin A1C1948 Diabetes: Retinopathy Etqeqpxqd73/14/1959Diabetes: Urine Protein Screening 1967Pneumococcal Vaccine: 65+ Years (2 of 2 - PCV) COVID-19 Vaccine ( season)/, 02/05/2021, 01/14/2021Influenza Vaccine (#1)510/07/2024, 11/25/2023, 08/27/2022, Additional history lkdtjfAvvregalfyvMmjayxghielf26/28/2022Colorectal Cancer ScreeningDiscontinuedCT ColonographyDiscontinuedFIT-DNADiscontinuedFIT DiscontinuedFOBTDiscontinuedSigmoidoscopyDiscontinued Insurance Care Teams Team MemberRelationshipSpecialtyStart DateEnd Candelario Sosa [address] [place] [address] [facility] - [facility] Trae Mccarty MD [address] [place] [address] PCP - [facility]11/16/23
--- OUTSIDE RECORDS SUMMARY | 2025-09-27 09:06 | XMS_ITS | Patient Health Record ---
Author Organization [facility] [place] Address [address] [place] [address] Care Team Providers Care Driver License Agent Name Role Phone Sheila DOS SANTOSCandelario Primary Care Provider Unavail Regi Shane Unavailable [phone] Allergies Allergen (clinical drug ingredient) Drug/Non Drug Allergy documented on EMR Reaction Allergy Type Onset Date Status codeine Codeine stomach upset Drug Allergy Active Reason For Referral No Information Medications Medication SIG (Take, Route, Frequency, Duration) Notes Start Date End Date Status Rezdiffra ActiveJanuviaActiverOPINIRole HClActiveAllopurinolActiveVitamin B 12Active Aspirin 81ActiveVitamin CActiveAtenololActiveVitamin DActiveAtorvastatin Calcium ActiveGabapentinActiveGlimepirideActiveLisinoprilActiveMagnesiumActivePriLOSEC Active Vital Signs Weight 213 lbs 12/29/2024 Encounters Encounter Location Date Provider Diagnosis [facility] (PODIAT[facility]) [address] [place] [address] [place] [address] 12/29/2024 Regi Jacinto Diabetes E11.9 Assessments Encounter Date Diagnosis (ICD Code) Assessment Notes Treatment Notes Treatment Clinical Notes Section Notes 12/29/2024 Diabetes (ICD-10 - E11.9) Plan Of Treatment No Information Insurance Providers Payer Name Payer Address Payer Phone Subscriber Number Group Number Insured Name Patient Relationship to Insured Coverage Start Date Coverage End Date [facility] [employer] [employer] [facility]IC[facility] [address] [place] [phone] [id number] Nikhil ZhannaivelisseSelf - patient is the [id number] 2024 Medical (General) History Medical History History ICD Code anemia arthritisdiabetesgouthigh blood pressurehigh cholesterolliver diseasekidney diseasevaricose veinsSurgical History Surgery Date(Month/Year) cholecystectomy hysterectomykneeeyecarpal tunnelskin cancer removed
--- OUTSIDE RECORDS SUMMARY | 2025-09-27 09:07 | XMS_ITS | Patient Health Record ---
Author Organization [facility] Address [address] [place] [address] Care Team Providers Care Machinist 2Nd Shift Name Role Phone JwhomerCandelario Primary Care Provider Unavailabl e Reason For Referral No Information Plan Of Treatment No Information Insurance Providers Payer Name Payer Address Payer Phone Subscriber Number Group Number Insured Name Patient Relationship to Insured Coverage Start Date Coverage End Date [facility] [address] [place] [address] [id number] [facility] [id number] CHARLY MEJIA Self - patient is the insured
--- NOTE | 2025-09-27 09:29 | PM.CN ---
Consult Note: HPI Data of Consult Patient: known to practice within the last 3 years Requesting Physician: Janelle Day NP Primary Care Provider: VINAY MATTA Consult Narrative Reason for consult: f/u Narrative: 74yof who presents for evaluation. longstanding history of low back pain and RLE pain. lumbar xr reviewed, significant for multilevel spondylosis and sij degeneration. continues in a series of provider directed home exercises >6 weeks, without lasting benefit. uses gabapentin. denies adverse med side effects. recent MRI consistent with multilevel ddd, stenosis, and spondylosis. Patient not interested in scs trial/implant. Pain today 3/10 increasing at times to 9/10. notes increased pain with standing, walking, activity, pushing, pulling. denies falls/injury since last visit. cc:: CC: Janelle Day NP Review of Systems ROS Musculoskeletal Reports: back pain and extremity pain PFSH [facility] Medical History (Updated 09/27/25 @ 09:31 by Janelle Day NP) Anemia ?D64.9 - Anemia, unspecified (ICD-10) Hearing deficit ?H91.90 - Unspecified hearing loss, unspecified ear (ICD-10) Carpal tunnel syndrome ?G56.00 - Carpal tunnel syndrome, unspecified upper limb (ICD-10) Acid reflux ?K21.9 - Gastro-esophageal reflux disease without esophagitis (ICD-10) Diabetes ?E11.9 - Type 2 diabetes mellitus without complications (ICD-10) Kidney stone ?N20.0 - Calculus of kidney (ICD-10) COLTEN on CPAP ?G47.33 - Obstructive sleep apnea (adult) (pediatric) (ICD-10) Sleep apnea ?G47.30 - Sleep apnea, unspecified (ICD-10) High cholesterol ?E78.00 - Pure hypercholesterolemia, unspecified (ICD-10) Palpitations ?R00.2 - Palpitations (ICD-10) HTN (hypertension) ?I10 - Essential (primary) hypertension (ICD-10) Surgical History History of eye surgery ?Z98.890 - Other specified postprocedural states (ICD-10) History of carpal tunnel release ?Z98.890 - Other specified postprocedural states (ICD-10) History of hysterectomy ?Z90.710 - Acquired absence of both cervix and uterus (ICD-10) Hx of cholecystectomy ?Z90.49 - Acquired absence of other specified parts of digestive tract (ICD-10) Social History Smoking status: Never smoker Meds Home Medications and Allergies Home Medications ?Medication ?Instructions ?Recorded ?Confirmed ?Type allopurinol 300 mg tablet 300 mg PO DAILY 01/21/24 03/20/25 History atenolol 50 mg tablet 50 mg PO Q24H 01/21/24 03/20/25 History atorvastatin 20 mg tablet 20 mg PO DAILY 01/21/24 03/20/25 History gabapentin 300 mg capsule 300 mg PO TID 01/21/24 03/20/25 History glimepiride 2 mg tablet 2 mg PO BID 01/21/24 03/20/25 History lisinopril 20 1 tab PO DAILY 01/21/24 03/20/25 History mg-hydrochlorothiazide 12.5 mg tablet magnesium oxide 400 mg (241.3 mg 400 mg PO DAILY 01/21/24 03/20/25 History magnesium) tablet ropinirole 2 mg tablet 2 mg PO DAILY 01/21/24 03/20/25 History sitagliptin phosphate 50 mg tablet 50 mg PO DAILY 01/21/24 03/20/25 History (Januvia) ascorbic acid (vitamin C) 500 mg 500 mg PO DAILY 04/07/24 03/20/25 History chewable tablet (Acerola C) aspirin 81 mg tablet,delayed 81 mg PO DAILY 04/07/24 03/20/25 History release (Adult Low Dose Aspirin) cholecalciferol (vitamin D3) 25 1,000 unit PO DAILY 04/07/24 03/20/25 History mcg (1,000 unit) chewable tablet (VitaJoy Daily D) mecobalamin (vitamin B12) 1,000 1,000 mcg PO DAILY 04/07/24 03/20/25 History mcg chewable tablet omeprazole 20 mg capsule,delayed 20 mg PO DAILY 01/10/25 03/20/25 History release pioglitazone 15 mg tablet 15 mg PO BID 01/10/25 03/20/25 History resmetirom 80 mg tablet (Rezdiffra) 80 mg PO DAILY 01/10/25 02/20/25 History baclofen 10 mg tablet 10 mg PO Q12H 02/15/25 03/20/25 History loratadine 10 mg tablet (Claritin) 10 mg PO DAILY 02/20/25 03/20/25 History Allergies Allergy/AdvReac Type Severity Reaction Status Date / Time codeine AdvReac Intermediate gi upset Verified 03/20/25 09:38 Exam Constitutional Documenting provider has reviewed patient's vital signs: yes Common normals: no apparent distress, oriented x3 and alert General appearance: cooperative HENMT Common normals: normocephalic, hearing grossly normal bilaterally and moist oral mucous membranes Head and scalp: normocephalic Eye Common normals: PERRL Pupil: PERRL Neck & C-Spine Common normals: full ROM General: normal visual inspection Chest Common normals: inspection of chest normal Respiratory Common normals: normal respiratory effort, no retractions and no use of accessory muscles Back & Pelvis Lumbar spine/lower back: ROM limited, pain with ROM and straight leg raise positive right Other: decreased sensation right L5,S1,S2 strength 4/5 in RLE and 5/5 in LLE Neuro Common normals: oriented x3 Sensorium/orientation: alert Psych Common normals: mental status grossly normal, thought process normal, cooperative, affect normal, speech normal and activity/motor behavior normal Speech: normal speech Thought process: normal thought process Results Additional Findings Additional findings: If on a controlled substance or opioids, I have checked an [place] report on this patient and there are no aberrancies noted in the prescribing history.??If on a controlled substance or opioid a drug screen was completed and reviewed within the last year, and if there has not been a drug screen completed we ordered one today to monitor higher risk, state monitored pain medication use. As part of providing excellent, safe, comprehensive care, the following was completed at our patient's visit: 1. A medication reconciliation and review to ensure accurate knowledge of current/active medications, including asking our patients to inform us about any vdkl-yuy-sqtqzpk medications or herbal remedies/nutritional supplements/alternative remedies. 2. A review to specifically ensure our patients have had annual screening for screening for depression, screening for tobacco use, and screening for unhealthy alcohol use. For concerning screenings had a discussion with the patient, provided patient education, and recommended follow-up with primary care provider when appropriate. If patient noted with a risk of falling, they received education on strength, gait, and balance training to prevent future risk of falling. Portions of this note may have been carried over from the previous visit and updated as appropriate. Please note this office utilizes paper charting in addition to the electronic medical record. A list of current medications, vitals, and PMH is available there as the clinical staff outside of myself do not have access to [employer] charting during the clinic day operations. As part of providing quality comprehensive care the current medications, vitals, and PMH were reviewed in the paper chart. Assessment and Plan Assessment and Plan (1) Lumbosacral radiculopathy: (2) Lumbar stenosis with neurogenic claudication: Plan The patient has had over 3 months of moderate to severe low back and RLE pain with functional impairment and inadequate response to conservative care including NSAIDS (unless there are contraindication such as concurrent blood thinners), multiple oral or topical pain medications, and home exercise program/physical therapy.? Patient has completed >6 weeks of guided home exercise program and/or formal physical therapy program without relief of their symptoms.? I have reviewed the imaging of the lumbar spine and no red flags were identified.? The imaging reveals radiographic findings consistent with lumbar radiculopathy, lumbar stenosis with NC, lumbar ddd The Oswestry Disability Index was completed, and the patient scored a 29%.? right L5-S1 S1-2 TFESI under fluoroscopy continue HEP as tolerated cannot take NSAIDs with CKD patient not interested in scs trial/implant f/u 2 weeks after TFESI
== END 2025-09-27 09:03 | disposition home or self-care (01) ==
LOC: PM 09:02
PROVIDERS: PCP Family Medicine; Visit Provider Nurse Practitioner
DX: M54.16 Radiculopathy, lumbar region (principal); M48.062 Spinal stenosis, lumbar region with neurogenic claudication
CPT/HCPCS: G0463

== ENCOUNTER 2025-10-03 14:35 | Outpatient (OUT) | payer OTHER, SELFPAY ==
--- NOTE | 2025-10-03 13:53 | PM.WCHP ---
Wound Care H&P: HPI History of Present Illness Narrative: The patient is a 74-year-old female with history of type 2 diabetes, last hemoglobin A1c is unknown, who presents for routine nail care. She reports having right lateral foot pain for several months and will be having injections with pain management next week. She states her toenails are painful when they need trimmed. [facility] Medical History (Updated 09/27/25 @ 09:31 by Janelle Day NP) Anemia ?D64.9 - Anemia, unspecified (ICD-10) Hearing deficit ?H91.90 - Unspecified hearing loss, unspecified ear (ICD-10) Carpal tunnel syndrome ?G56.00 - Carpal tunnel syndrome, unspecified upper limb (ICD-10) Acid reflux ?K21.9 - Gastro-esophageal reflux disease without esophagitis (ICD-10) Diabetes ?E11.9 - Type 2 diabetes mellitus without complications (ICD-10) Kidney stone ?N20.0 - Calculus of kidney (ICD-10) COLTEN on CPAP ?G47.33 - Obstructive sleep apnea (adult) (pediatric) (ICD-10) Sleep apnea ?G47.30 - Sleep apnea, unspecified (ICD-10) High cholesterol ?E78.00 - Pure hypercholesterolemia, unspecified (ICD-10) Palpitations ?R00.2 - Palpitations (ICD-10) HTN (hypertension) ?I10 - Essential (primary) hypertension (ICD-10) Surgical History History of eye surgery ?Z98.890 - Other specified postprocedural states (ICD-10) History of carpal tunnel release ?Z98.890 - Other specified postprocedural states (ICD-10) History of hysterectomy ?Z90.710 - Acquired absence of both cervix and uterus (ICD-10) Hx of cholecystectomy ?Z90.49 - Acquired absence of other specified parts of digestive tract (ICD-10) Social History Smoking status: Never smoker Meds Home Medications and Allergies Home Medications ?Medication ?Instructions ?Recorded ?Confirmed ?Type allopurinol 300 mg tablet 300 mg PO DAILY 01/21/24 03/20/25 History atenolol 50 mg tablet 50 mg PO Q24H 01/21/24 03/20/25 History atorvastatin 20 mg tablet 20 mg PO DAILY 01/21/24 03/20/25 History gabapentin 300 mg capsule 300 mg PO TID 01/21/24 03/20/25 History glimepiride 2 mg tablet 2 mg PO BID 01/21/24 03/20/25 History lisinopril 20 1 tab PO DAILY 01/21/24 03/20/25 History mg-hydrochlorothiazide 12.5 mg tablet magnesium oxide 400 mg (241.3 mg 400 mg PO DAILY 01/21/24 03/20/25 History magnesium) tablet ropinirole 2 mg tablet 2 mg PO DAILY 01/21/24 03/20/25 History sitagliptin phosphate 50 mg tablet 50 mg PO DAILY 01/21/24 03/20/25 History (Januvia) ascorbic acid (vitamin C) 500 mg 500 mg PO DAILY 04/07/24 03/20/25 History chewable tablet (Acerola C) aspirin 81 mg tablet,delayed 81 mg PO DAILY 04/07/24 03/20/25 History release (Adult Low Dose Aspirin) cholecalciferol (vitamin D3) 25 1,000 unit PO DAILY 04/07/24 03/20/25 History mcg (1,000 unit) chewable tablet (VitaJoy Daily D) mecobalamin (vitamin B12) 1,000 1,000 mcg PO DAILY 04/07/24 03/20/25 History mcg chewable tablet omeprazole 20 mg capsule,delayed 20 mg PO DAILY 01/10/25 03/20/25 History release pioglitazone 15 mg tablet 15 mg PO BID 01/10/25 03/20/25 History resmetirom 80 mg tablet (Rezdiffra) 80 mg PO DAILY 01/10/25 02/20/25 History baclofen 10 mg tablet 10 mg PO Q12H 02/15/25 03/20/25 History loratadine 10 mg tablet (Claritin) 10 mg PO DAILY 02/20/25 03/20/25 History Allergies Allergy/AdvReac Type Severity Reaction Status Date / Time codeine AdvReac Intermediate gi upset Verified 03/20/25 09:38 Exam Narrative: Exam Narrative: Derm: Toenails 1 through 10 are elongated, thickened, mycotic. No ulcerative or preulcerative lesions are noted. Skin is diffusely dry. Vascular: DP pulses are faintly palpable bilaterally. PT pulses are nonpalpable. Capillary refills less than 3 seconds bilaterally. Varicosities are present superficially. There is 2+ nonpitting edema of both lower legs and ankles. Digital hair is absent bilaterally. Neuro: Protective sensation was tested with a monofilament in both feet. The patient was able to detect 3/5 areas tested on the right and 4/5 areas tested on the left. Vibratory sensation is absent bilaterally. Achilles deep tendon reflexes are absent bilaterally. Musculoskeletal: No gross deformity. No pain with palpation. Assessment and Plan Assessment and Plan (1) Tinea unguium: (2) Diminished pulses in lower extremity: (3) Type 2 diabetes mellitus with diabetic neuropathy, unspecified: Plan Routine nail care performed. Follow-up in 3 months. Acute Procedures Podiatry Nail Debridement Class B Findings Absent posterior tibial pulse: bilateral Advanced trophic changes as evidenced by any three of the following: decreased hair growth, nail changes (thickening) and skin texture (thin or shiny) Class C Findings Claudication: No Temperature changes: No Edema: Yes Nail debridement paresthesia (abnormal spontaneous sensations in the feet): No Burning: No Qualifies If: Qualifiers If:: A patient qualifies for nail debridement if they have: 1 class A finding (Q7) 2 class B findings (Q8) OR 1 class B & 2 class C findings in addition to a primary condition (Q9) Nail Procedure Nail Procedure Time out: Yes Nail procedure: other (Toenail debridement toes 1 through 10) Number of affected nails: 10 Location (toes): left and right Procedure successful: Yes Patient tolerated procedure: well and no complications Additional comments: Toenails 1 through 10 were sharply debrided without incident with nail nippers.
--- OUTSIDE RECORDS SUMMARY | 2025-10-03 14:39 | XMS_ITS | Clinical Summary ---
Author Organization [facility] Address [address] [place] [address] Care Team Providers Care Devops Solutions Architect Name Role Phone Candelario Sosa Primary Care Provider [phone] Trae Mccarty MD Unavailable [phone] Allergies Active AllergyReactionsCriticalityNoted HycmWxfdqyesNohshajuvvwpc79/05/2023 Acetaminophen-SxyhyezXdbvzGtea10/16/2022 pt states she is unwilling to try even plain tylenol after this experience even though she states she took tylenol prior to this and had no problems PbkggavZxwho04/11/2022 Upset stomach Medications MedicationSigDispense QuantityRefillsLast FilledStart DateEnd [...] mg09/29/2024ctive Active Problems ProblemNoted DateDiagnosed DateTransient ischemic sfaqpp5508/16/2024alpitations 08/16/2024Syncope and bzboouov57/14/5353Qbywrsdsbhe70/13/2024 Overview (07/20/2024): Patient also experiences chronic right handed paresthesia and pain into first digit of her 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 She also has been told she has history of sciatica on the right leg with significant neuropathy. EMGs were recommended outpatient to further evaluate paresthesia in RUE and lower extremities. Balance scvvpat8703/28/20247777Ywpuhswnewsauo29/13/2024 Overview (07/20/2024): She also has been told [...] not a tripping adan if applicable. Autonomic bgoxyhkykyk03/13/2024eripheral geviixolgk71/13/2024arpal tunnel syndrome, bilateral upper limbs03/28/2024arpal tunnel syndrome [...] on this for now. Mixed hearing loss, xnhapiygu23/27/2024Tympanic membrane central perforation, ucmxkzrfm76/27/2024cquired hallux valgus of right foot02/02/2024cquired hammer toe deformity of lesser toe of right foot02/02/2024iabetes uyglfagt19/19/2024 Neuropathy of lower fuqkctkaq16/19/2024Type 2 diabetes mellitus without complication, without long-term current use of qjvkqwg6602/02/2024Stage 3b chronic kidney vslounb3901/29/2024Iron deficiency anemia due to chronic blood loss 10/03/2022GERD (gastroesophageal reflux disease)09/05/2010History of malignant neoplasm of skin09/05/20108960Xouqedqsjhr62/21/2010symptomatic varicose veins 09/05/2010Depressive eyvcgwxg24/21/2010Essential zlraswcwsnqh76/21/2010 Family History Medical HistoryRelationNameCommentsDiabetesBrotherHeart diseaseBrother HypertensionBrotherStrokeBrotherCancerFatherHypertensionFatherCancerMother DiabetesMotherHeart diseaseMotherHypertensionMotherStrokeMotherRelationName FsiokbHzklfzriPmaseuqa4IenbvmKypwbyovMimcldMjuyqdus Social History Tobacco UseTypesPacks/DayYears UsedDateSmoking Tobacco: NeverSmokeless Tobacco: Never Tobacco Cessation:Counseling Given: Not Answered Alcohol UseStandard Drinks/WeekCommentsDefer0 (1 standard drink = 0.6 oz pure alcohol)caffeine intake: 1-2 cups per dayCommentsUnknownSex and Gender InformationValueDate RecordedSex Assigned at UnznqXrqnmo12/26/2024 11:23 AM EST Legal EsmJiacmu64/15/2023 7:09 PM EDTGender RtxrjvwfFafgyd16/26/2024 11:23 AM ESTSexual OrientationChoose not to tciitybn42/26/2024 11:23 AM EST Last Filed Vital Signs Vital SignReadingTime TakenCommentsBlood Tgblexrh472/68003/06/2025 9:47 AM EDT Buprl043708/16/2024 8:51 AM BCBAmbjfygpsmh83.5 ??C (97.7 ??F)02/15/2024 10:12 AM EDTRespiratory Rate--Oxygen Jfukulfhjo90%03/29/2024 2:36 PM EDTInhaled Oxygen Concentration--Svuaju60.4 kg (217 lb)03/06/2025 9:47 AM DFXMwjybb605.9 cm (5' 1 )03/06/2025 9:47 AM EDTBody Mass Jjbee967903/06/2025 9:47 AM EDT Plan of Treatment Health MaintenanceDue DateLast DoneCommentsDiabetes: Hemoglobin A1C1948 Diabetes: Retinopathy Dwcjchzev15/14/1959Diabetes: Urine Protein Screening 1967Pneumococcal Vaccine: 65+ Years (2 of 2 - PCV) COVID-19 Vaccine ( season)/, 02/05/2021, 01/14/2021Influenza Vaccine (#1)510/07/2024, 11/25/2023, 08/27/2022, Additional history rxcwflGnyvqzhejkyYgnfjfsjqzfw27/28/2022Colorectal Cancer ScreeningDiscontinuedCT ColonographyDiscontinuedFIT-DNADiscontinuedFIT DiscontinuedFOBTDiscontinuedSigmoidoscopyDiscontinued Insurance Care Teams Team MemberRelationshipSpecialtyStart DateEnd Candelario Sosa [address] [place] [address] [facility] - [facility] Trae Mccarty MD [address] [place] [address] PCP - [facility]11/16/23
--- OUTSIDE RECORDS SUMMARY | 2025-10-03 14:39 | XMS_ITS | Patient Health Record ---
Author Organization [facility] in [place] Address [address] [place] [address] Care Team Providers Care Graduate Teaching Associate Name Role Phone Sheila DOS SANTOSCandelario Primary Care Provider Unavail Regi Shane Unavailable [phone] Allergies Allergen (clinical drug ingredient) Drug/Non Drug [...] Encounters Encounter Location Date Provider Diagnosis [facility] (PODIATRY) [address] [place] [address] [place] [address] 12/29/2024 Regi Jacinto Diabetes E11.9 Assessments Encounter Date Diagnosis (ICD Code) Assessment Notes Treatment Notes Treatment Clinical Notes Section Notes 12/29/2024 Diabetes (ICD-10 - E11.9) Plan Of Treatment No Information Insurance Providers Payer Name Payer Address Payer Phone Subscriber Number Group Number Insured Name Patient Relationship to Insured Coverage Start Date Coverage End Date [facility] [employer] [employer] [facility]IC[facility] [address] [place] [phone] [id number] Nikhil ZhannaivelisseSelf - patient is the [id number] 2024 Medical (General) History Medical History History ICD Code anemia arthritisdiabetesgouthigh blood pressurehigh cholesterolliver diseasekidney diseasevaricose veinsSurgical History Surgery Date(Month/Year) skin cancer removed carpal tunneleyekneehysterectomycholecystectomy
--- OUTSIDE RECORDS SUMMARY | 2025-10-03 14:40 | XMS_ITS | Clinical Summary ---
Author Organization [facility] Address [address] [place] [address] Care Team Providers Care Paint Trimmer Pipe Bowls Name Role Phone Nisa Shepherd CNP Primary Care Provider [phone] Allergies Active AllergyReactionsCriticalityNoted DateCommentsAcetaminophen-CodeineOther: See MsmiwuodJizp10/16/2022 pt states she is unwilling to try even plain tylenol after this experience even though she states she took tylenol prior to this and had no problems CodeineOther: See Mhjrxywx52/11/2022 Upset stomach Medications MedicationSigDispense QuantityRefillsLast FilledStart DateEnd DateStatus ASCORBIC ACID, VITAMIN C, ORAL Take 500 mg by mouth once daily.Active aspirin (ASPIR-81 ORAL) Take 81 mg by mouth once daily.Active atenolol (TENORMIN) 50 mg tablet Take 50 mg by mouth once daily.Active atorvastatin (LIPITOR) 20 mg tablet Take 20 mg by mouth once daily.Active cholecalciferol (VITAMIN D3) 1,000 unit tab tablet Take 1,000 Units by mouth once daily.Active gabapentin (NEURONTIN) 300 mg capsule Take 300 mg by mouth daily at bedtime.Active lisinopril-hydroCHLOROthiazide (PRINZIDE,ZESTORETIC) 10-12.5 mg per tablet Take 1 tablet by mouth once daily.Active glimepiride (AMARYL) 2 mg tablet Take 2 mg by mouth daily with breakfast.Active omeprazole (PRILOSEC) 20 mg capsule Take 20 mg by mouth once daily.Active rOPINIRole (REQUIP) 0.5 mg tablet Take 0.5 mg by mouth twice daily.Active magnesium oxide 400 mg magnesium tab Take 1 tablet by mouth once daily.02/03/2023ctive JANUVIA 50 mg tablet Take 1 tablet by mouth every afternoon.09/15/2023ctive albuterol HFA (PROVENTIL HFA, VENTOLIN HFA) 90 mcg/actuation inhaler 10/12/2023ctive FARXIGA 10 mg tablet 07/06/2024ctive resmetirom (REZDIFFRA) 80 mg tablet once daily.05/11/2024ctive allopurinol (ZYLOPRIM) 300 mg tablet 300 mg.Active diphenhydrAMINE HCl (CHILDREN'S BENADRYL ALLERGY) 12.5 mg chewable tablet 25 mg.09/29/2024ctive pioglitazone (ACTOS) 15 mg tablet 01/02/2025tive baclofen 10 mg tablet Take 5 mg by mouth once daily.03/30/2025tive loratadine (CLARITIN) 5 mg/5 mL syrup Take 5 mg by mouth as needed for cold/allergy symptoms.Active vit B complex no.12/niacin,B3, (VITAMIN B COMPLEX NO.12-NIACIN ORAL) Vitamin B 12Active Active Problems ProblemNoted DateDiagnosed DateStage 3b chronic kidney uzddqlq2401/29/2024Iron deficiency anemia due to chronic blood loss10/03/2022 Encounters DateTypeDepartmentCare NsbzYgqwpyqwxiq11/23/2025Results Follow-Up Hematology/Oncology [address] [place] [address] [place] [address] Daksha Balderas PA-C Tpjvixb7708/07/2025 10:30 AM EDTVisit (SP) Office Hematology/Oncology [address] [place] [address] [place] [address] Daksha Balderas PA-C Iron deficiency anemia, unspecified iron deficiency anemia type (Primary Dx); Anemia in stage 3a chronic kidney disease (HCC); Gjghdetmerftdmsa95/22/2025Travelfrom Last 3 Months Immunizations ImmunizationAdministration DatesNext Dueinfluenza (HD-IIV3) vaccine, age 65+ yr, high dose, trivalent, PF (FLUZONE HIGH-DOSE)09/18/2016influenza (HD-IIV4) vaccine, age 65+ yr, high dose, quadrivalent, PF (FLUZONE HIGH-DOSE)11/25/2023, 08/27/2022,09/26/2021influenza (IIV3) vaccine, trivalent (AFLURIA, FLULAVAL, FLUVIRIN, FLUZONE)10/17/2015influenza (IIV4) vaccine, age 6 mo - 64 yr, quadrivalent, PF (AFLURIA, FLUARIX, FLULAVAL, FLUZONE)08/16/2018influenza (LAIV) vaccine, nasal, unspecified kvoptojjypl90/01/2018pneumococcal polysaccharide (PPV23) vaccine, 23 valent (PNEUMOVAX 23)08/16/2018 Family History Medical HistoryRelationCommentsLung CancerFatherCongenital heart diseaseMother RelationStatusCommentsFatherMother Social History Tobacco UseTypesPacks/DayYears UsedDateSmoking Tobacco: NeverPassive Smoke Exposure: PastSmokeless Tobacco: Never Tobacco Cessation:Counseling Given: Not Answered Alcohol UseStandard Drinks/WeekCommentsNever0 (1 standard drink = 0.6 oz pure alcohol)PHQ-2AnswerDate RecordedPHQ-2 vcghl5064Area Deprivation Index AnswerDate RecordedNational Score (1-100), lower number is lower risk80 05/01/2023State Score (1-10), lower number is lower iptq8603Data from: https://www.neighborhoodatlas.medicine.[facility].edu/. Last address used for [address]CommentsNoSex and Gender Information ValueDate RecordedSex Assigned at BirthNot on fileLegal XhaIlmlyn68/07/2022 10:39 AM ESTGender IdentityNot on fileSexual OrientationNot on file Last Filed Vital Signs Vital SignReadingTime TakenCommentsBlood Shkihnaw424/5909 10:30 AM EDT Atipu6472 10:30 AM UEJUrydfnygbjb03.5 ??C (97.7 ??F)08/07/2025 10:30 AM EDTRespiratory Yafk636108/07/2025 10:30 AM EDTOxygen Nrusdxbiqz27%08/07/2025 10:30 AM EDTInhaled Oxygen Concentration--Dtenvl158.9 kg (222 lb 7.1 oz)08/07/2025 10:30 AM RILOuterj893 cm (5' 2.21 )04/25/2025 10:47 AM EDTBody Mass Index40.42 04/25/2025 10:47 AM EDT Plan of Treatment DateTypeDepartmentCare Team (Latest Contact Info)Vcbxnuloxzl33/15/2025 9:45 AM ESTOffice Visit [facility] [address] [place] [address] lab10/30/2025 10:00 AM ESTVisit (SP) Office Hematology/Oncology [address] [place] [address] Daksha Balderas, PA-C [address] [place] [address] 3 month follow up with Daksha and labHealth MaintenanceDue DateLast DoneComments Annual PCP Team Chronic Disease Visit1966Anxiety Kaekpvdcr92/14/1967 Depression Wnwtmayen65/14/1967Hepatitis C Bvgoaojlg46/14/1967DTaP,Tdap,Td Vaccine (1 - Tdap)1967Shingrix Vaccine (1 of 2)1998Bone Density Czrqljfop46/14/2014Pneumococcal Vaccine: 50+ (2 of 2 - PCV) Advance Directive Wcjzmxwsrn73/01/2025Medicare Advantage Annual Wellness Visit 11/16/2024ovid-19 Vaccine ( season)9/, 02/05/2021, 01/14/2021Influenza Vaccine (#1)/07/2024, 11/25/2023, 08/27/2022, Additional history existsHemoglobin/Odfcnxbgak30, 04/18/2025, 04/07/2025, Additional history existsSerum Lezggtmasm95/22/202609/, 04/18/2025, 04/07/2025, Additional history existsDiabetes Kbuhiljyk47/22/2028 08/07/2025, 04/18/2025, 04/07/2025, Additional history existsRSV Vaccine Igaxigxoo63/09/2024 Procedures Procedure NamePriorityDate/TimeAssociated DiagnosisCommentsKAPPA/SAMANIEGO,FREE,SER Rsbfobh4608/07/2025 10:15 AM EDT Iron deficiency anemia, unspecified iron deficiency anemia type Thrombocytopenia Stage 3b chronic kidney disease (HCC) Anemia, unspecified type IMMUNOFIXATION SCREEN, JARBHNhumfhi66/22/2025 10:15 AM EDT Iron deficiency anemia, unspecified iron deficiency anemia type Thrombocytopenia Stage 3b chronic kidney disease (HCC) Anemia, unspecified type IMMUNOGLOBULINS FXUCdtwxjo46/22/2025 10:15 AM EDT Iron deficiency anemia, unspecified iron deficiency anemia type Thrombocytopenia Stage 3b chronic kidney disease (HCC) Anemia, unspecified type PROTEIN ELECTROPHORESIS SERUM (P)Nbeisnd6508/07/2025 10:15 AM EDT Iron deficiency anemia, unspecified iron deficiency anemia type Thrombocytopenia Stage 3b chronic kidney disease (HCC) Anemia, unspecified type PROTEIN, TOTAL (FOR SEPG)Aoozmeo9608/07/2025 10:15 AM EDT Iron deficiency anemia, unspecified iron deficiency anemia type Thrombocytopenia Stage 3b chronic kidney disease (HCC) Anemia, unspecified type MONOCLONAL PROTEIN, SERUM (BLOOD)Ahacsqb0008/07/2025 10:15 AM EDT Iron deficiency anemia, unspecified iron deficiency anemia type Thrombocytopenia Stage 3b chronic kidney disease (HCC) Anemia, unspecified type PROTEIN ELECTROPHORESIS SERUM W/ULTECKSuxrxom10/22/2025 10:15 AM EDT Iron deficiency anemia, unspecified iron deficiency anemia type Thrombocytopenia Stage 3b chronic kidney disease (HCC) Anemia, unspecified type FOLATE BEAKRHbcmowd17/22/2025 10:15 AM EDT Iron deficiency anemia, unspecified iron deficiency anemia type Thrombocytopenia Stage 3b chronic kidney disease (HCC) Anemia, unspecified type VITAMIN B12 VIWJBDswkyna79/22/2025 10:15 AM EDT Iron deficiency anemia, unspecified iron deficiency anemia type Thrombocytopenia Stage 3b chronic kidney disease (HCC) Anemia, unspecified type ERYTHROPOIETIN/LOLJtxlglq38/22/2025 10:15 AM EDT Iron deficiency anemia, unspecified iron deficiency anemia type Thrombocytopenia Stage 3b chronic kidney disease (HCC) Anemia, unspecified type FERRITIN KKRGxahndd91/22/2025 10:15 AM EDT Iron deficiency anemia, unspecified iron deficiency anemia type Thrombocytopenia Stage 3b chronic kidney disease (HCC) Anemia, unspecified type CBC + TPBEHyvgsoz30/22/2025 10:15 AM EDT Iron deficiency anemia, unspecified iron deficiency anemia type Thrombocytopenia Stage 3b chronic kidney disease (HCC) Anemia, unspecified type IRON + EYFORootxdk04/22/2025 10:15 AM EDT Iron deficiency anemia, unspecified iron deficiency anemia type Thrombocytopenia Stage 3b chronic kidney disease (HCC) Anemia, unspecified type RETIC WHNWTSriscir31/22/2025 10:15 AM EDT Iron deficiency anemia, unspecified iron deficiency anemia type Thrombocytopenia Stage 3b chronic kidney disease (HCC) Anemia, unspecified type COMPREHENSIVE METABOLIC KTCNZEewhrgh06/22/2025 10:15 AM EDT Iron deficiency anemia, unspecified iron deficiency anemia type Thrombocytopenia Stage 3b chronic kidney disease (HCC) Anemia, unspecified type from Last 3 Months Results * IMMUNOFIXATION SCREEN, SERUM (08/07/2025 10:15 AM EDT)ComponentValueRef Range Test MethodAnalysis TimePerformed AtPathologist SignatureMPA ResultNo M protein is identified.No M protein is identified.08/09/2025 9:33 AM EDT [facility] LABStaff Review (MPA)Reviewed by Nimco Meredith M.D.08/09/2025 9:33 AM EDTCCLEVELAND [facility] LABSpecimen (Source) Anatomical Location / LateralityCollection Method / VolumeCollection Time Received TimeBloodBLOOD SPECIMEN / UnknownVenipuncture / Yztrfan9708/07/2025 10:15 AM EDT08/07/2025 10:15 AM EDT Narrative Authorizing ProviderResult TypeResult StatusDaksha Balderas PA-CLABORATORYFinal ResultPerforming OrganizationAddressCity/State/ZIP CodePhone Number [facility] [address] [id number], * (ABNORMAL) PROTEIN, TOTAL (FOR SEPG) (08/07/2025 10:15 AM EDT)ComponentValue Ref RangeTest MethodAnalysis TimePerformed AtPathologist SignatureProtein, Total5.7(L)6.3 - 8.0 g/dL08/07/2025 8:53 PM [facility] LABSpecimen (Source)Anatomical Location / LateralityCollection Method / Volume Collection TimeReceived TimeBloodBLOOD SPECIMEN / UnknownVenipuncture / Bwvmcvz5908/07/2025 10:15 AM EDT08/07/2025 10:15 AM EDT Narrative Authorizing ProviderResult TypeResult StatusDaksha Martinez Sherrie HUDDLESTON-CLABORATORYFinal ResultPerforming OrganizationAddressCity/State/ZIP CodePhone Number [facility] [address] [place] [address], * (ABNORMAL) PROTEIN ELECTROPHORESIS SERUM (P) (08/07/2025 10:15 AM EDT) ComponentValueRef RangeTest MethodAnalysis TimePerformed AtPathologist SignatureAlbumin for SPE3.483.43 - 5.41 g/dL08/09/2025 9:15 AM EDTR[facility] LABAlpha 1 Globulin0.350.18 - 0.43 g/dL08/09/2025 9:15 AM EDTR[facility] LABAlpha 2 Globulin0.800.42 - 0.98 g/dL 08/09/2025 9:15 AM [facility] LABBeta Globulin0.56(L)0.61 - 1.17 g/dL08/09/2025 9:15 AM [facility] LABGamma Globulin0.50(L)0.53 - 1.51 g/dL08/09/2025 9:15 AM [facility] LABInterpretation (Prot Electro)No definitive M protein is identified on protein electrophoresis.No definitive M protein is identified on protein electrophoresis.08/09/2025 9:15 AM [facility] Interpretation Comment for Protein ElectrophoresisHypogammaglobulinemia is present, which can be seen in the setting of monoclonal gammopathy. If clin ically indicated, monoclonal protein analysis and serum free light chain analysis are suggested to evaluate further for monoclonal gammopathy. 08/09/2025 9:15 AM [facility] LABM-Protein Location 08/09/2025 9:15 AM [facility] LABComment:Not Applicable. M-Protein Concentration0.00<=0.00 g/dL08/09/2025 9:15 AM [facility] LABSPE Staff ReviewReviewed by Nimco Meredith M.D.08/09/2025 9:15 AM [facility] LABSpecimen (Source)Anatomical Location / LateralityCollection Method / VolumeCollection TimeReceived TimeBloodBLOOD SPECIMEN / UnknownVenipuncture / Niekooe5608/07/2025 10:15 AM EDT08/07/2025 10:15 AM EDT Narrative [facility] - 08/09/2025 9:15 AM EDT Serum electrophoresis test was performed using the TraNet'te V8 NEXUS capillary electrophoresis method. Results obtained with different assay methods or kits cannot be used interchangeably. Authorizing ProviderResult TypeResult StatusMinvera HUDDLESTON-CLABORATORYFinal ResultPerforming OrganizationAddressCity/State/ZIP CodePhone Number [facility] [address] [address], * (ABNORMAL) KAPPA/SAMANIEGO,FREE,SER (08/07/2025 10:15 AM EDT)ComponentValueRef RangeTest MethodAnalysis TimePerformed AtPathologist SignatureKappa Free, Serum28.9(H)3.3 - 19.4 mg/L08/08/2025 2:30 PM [facility] LABComment: Rarely, increased serum free light chains levels may not be detected or accurately quantified due to prozone phenomenon or in high viscosity samples using this immunoturbidimetric assay. Correlation with other laboratory results and clinical findings is recommended. The [place] Free Light Chain was performed using the Binding Site Optilite immunoturbidimetric method. Result obtained with different assay methods or kits cannot be used interchangeably. Lambda Free, Serum27.7(H)5.7 - 26.3 mg/L08/08/2025 2:30 PM [facility] LABComment: Rarely, increased serum free light chains levels may not be detected or accurately quantified due to prozone phenomenon or in high viscosity samples using this immunoturbidimetric assay. Correlation with other laboratory results and clinical findings is recommended. The Lambda Free Light Chain was performed using the Binding Site Optilite immunoturbidimetric method. Result obtained with different assay methods or kits cannot be used interchangeably. ?? K/L Ratio, Serum1.040.26 - 1.65008/08/2025 2:30 PM [facility] LABSpecimen (Source)Anatomical Location / LateralityCollection Method / VolumeCollection TimeReceived TimeBloodBLOOD SPECIMEN / UnknownVenipuncture / Znxgaiu8008/07/2025 10:15 AM EDT08/07/2025 10:15 AM EDT Narrative Authorizing ProviderResult TypeResult StatusDaksha HUDDLESTON-CLABORATORYFinal ResultPerforming OrganizationAddressCity/State/ZIP CodePhone Number [facility] [address] * VITAMIN B12 (08/07/2025 10:15 AM EDT)ComponentValueRef RangeTest Method Analysis TimePerformed AtPathologist SignatureVitamin [id number] - 1,245 pg/mL 08/07/2025 9:05 PM [facility] LABSpecimen (Source) Anatomical Location / LateralityCollection Method / VolumeCollection Time Received TimeBloodBLOOD SPECIMEN / UnknownVenipuncture / Uvkcmbe9708/07/2025 10:15 AM EDT08/07/2025 10:15 AM EDT Narrative Authorizing ProviderResult TypeResult StatusDaksha HUDDLESTON-CLABORATORYFinal ResultPerforming OrganizationAddressCity/State/ZIP CodePhone Number [facility] [address] [address], [place] * (ABNORMAL) RETICULOCYTE COUNT (08/07/2025 10:15 AM EDT)ComponentValueRef Range Test MethodAnalysis TimePerformed AtPathologist SignatureRetic %3.1(H)0.4 - 2.0 %08/07/2025 10:24 AM EDTVETERANS AFF[facility]IRS [facility] LABAbs Retic 0.113(H)0.018 - 0.100 M/uL08/07/2025 10:24 AM EDTVETERANS [facility] LABSpecimen (Source)Anatomical Location / LateralityCollection Method / VolumeCollection TimeReceived TimeBloodBLOOD SPECIMEN / UnknownVenipuncture / Wsculie4908/07/2025 10:15 AM EDT08/07/2025 10:15 AM EDT Narrative Authorizing ProviderResult TypeResult StatusDaksha Martinez Sherrie PA-CLABORATORYFinal ResultPerforming OrganizationAddressCity/State/ZIP CodePhone Number [facility] [address] [place] [phone] * IRON AND TIBC (08/07/2025 10:15 AM EDT)ComponentValueRef RangeTest Method Analysis TimePerformed AtPathologist VbvqoogigXctg4845 - 186 ug/dL08/07/2025 8:14 PM EDTCCLEVEL[facility] JTXUCWL662225 - 386 ug/dL08/07/2025 8:14 PM [facility] LABTransferrin Pbtpyrgqel06.715.0 - 57.0 %08/07/2025 8:14 PM EDTR[facility] LABSpecimen (Source) Anatomical Location / LateralityCollection Method / VolumeCollection Time Received TimeBloodBLOOD SPECIMEN / UnknownVenipuncture / Kgiijwb5808/07/2025 10:15 AM EDT08/07/2025 10:15 AM EDT Narrative Authorizing ProviderResult TypeResult StatusDaksha Balderas PA-CLABORATORYFinal ResultPerforming OrganizationAddressCity/State/ZIP CodePhone Number [facility] [address] [id number], [place] * (ABNORMAL) IMMUNOGLOBULINS,IGG,IGA,IGM (08/07/2025 10:15 AM EDT)ComponentValue Ref RangeTest MethodAnalysis TimePerformed AtPathologist HtyygyultJqC724(L)700 - 1,600 mg/dL08/08/2025 11:10 AM [facility] SKFBrK86(L)70 - 400 mg/dL08/08/2025 11:10 AM [facility] KIMBaF94(L)40 - 230 mg/dL08/08/2025 11:10 AM [facility] LABSpecimen (Source)Anatomical Location / LateralityCollection Method / VolumeCollection TimeReceived TimeBloodBLOOD SPECIMEN / UnknownVenipuncture / Uvhxure3708/07/2025 10:15 AM EDT08/07/2025 10:15 AM EDT Narrative Authorizing ProviderResult TypeResult StatusMinvera Martinez Sherrie PA-CLABORATORYFinal ResultPerforming OrganizationAddressCity/State/ZIP CodePhone Number [facility] [address] [address], * FOLATE, SERUM (08/07/2025 10:15 AM EDT)ComponentValueRef RangeTest Method Analysis TimePerformed AtPathologist SignatureFolate>20.0>4.7 ng/mL08/07/2025 9:05 PM [facility] LABComment: A result of > 20 ng/mL is not necessarily indicative of a pathologic or treatable condition: it reflects a limitation of the test methodology. Assay reference range: 4.8 to 24.2 ng/mL. Suitable for detection of folate deficiency. Reference: Folate III (Folate III) [package insert V 1.0 Bulgarian]. [facility], [place], [place]: September 2015. Specimen (Source)Anatomical Location / LateralityCollection Method / Volume Collection TimeReceived TimeBloodBLOOD SPECIMEN / UnknownVenipuncture / Unknown 08/07/2025 10:15 AM EDT08/07/2025 10:15 AM EDT Narrative Authorizing ProviderResult TypeResult StatusMinvera Martinez Sherrie PA-CLABORATORYFinal ResultPerforming OrganizationAddressCity/State/ZIP CodePhone Number [facility] [address] [place] [address], * (ABNORMAL) FERRITIN (08/07/2025 10:15 AM EDT)ComponentValueRef RangeTest MethodAnalysis TimePerformed AtPathologist SdnzxtoyjVkexaqft792.0(H)14.7 - 205.1 ng/mL08/07/2025 8:23 PM EDTCCLEVELAND [facility] LABSpecimen (Source)Anatomical Location / LateralityCollection Method / VolumeCollection TimeReceived TimeBloodBLOOD SPECIMEN / UnknownVenipuncture / Ydonjpg2808/07/2025 10:15 AM EDT08/07/2025 10:15 AM EDT Narrative Authorizing ProviderResult TypeResult StatusMinvera Henriquez Sherrie PA-CLABORATORYFinal ResultPerforming OrganizationAddressCity/State/ZIP CodePhone Number [facility] [address] [place] [address], * (ABNORMAL) ERYTHROPOIETIN/EPO (08/07/2025 10:15 AM EDT)ComponentValueRef Range Test MethodAnalysis TimePerformed AtPathologist LjgazfwopKqfhmoawkwwrcp69.0(H) 2.6 - 18.5 mIU/mL08/08/2025 10:12 AM [facility]TR[facility] LAB Specimen (Source)Anatomical Location / LateralityCollection Method / Volume Collection TimeReceived TimeBloodBLOOD SPECIMEN / UnknownVenipuncture / Omytkqk4208/07/2025 10:15 AM EDT08/07/2025 10:15 AM EDT Narrative [facility] - 08/08/2025 10:12 AM EDT Test analyzed by the Aman DxI method. Authorizing ProviderResult TypeResult StatusMinvera Martinez Sherrie PA-CLABORATORYFinal ResultPerforming OrganizationAddressCity/State/ZIP CodePhone Number [facility] [address] [place] [address], * (ABNORMAL) COMPREHENSIVE METABOLIC PANEL (08/07/2025 10:15 AM EDT)Component ValueRef RangeTest MethodAnalysis TimePerformed AtPathologist Signature Protein, Total6.1(L)6.3 - 8.0 g/dL08/07/2025 11:46 AM EDTNORTHCO[facility] LABAlbumin3.93.9 - 4.9 g/dL08/07/2025 11:46 AM [facility] LABCalcium, Total8.78.5 - 10.2 mg/dL08/07/2025 11:46 AM [facility] LABBilirubin, Total0.60.2 - 1.3 mg/dL 08/07/2025 11:46 AM [facility] LABAlkaline Pigxamisxok735(H)34 - 123 U/L08/07/2025 11:46 AM [facility] JWUQMR6211 - 35 U/L08/07/2025 11:46 AM [facility] IOPNOJ092 - 38 U/L08/07/2025 11:46 AM [facility] BFKIxxilgr091(H)74 - 99 mg/dL08/07/2025 11:46 AM [facility] LABComment: The [place] Diabetes Association (ADA) provides guidance for cutoff values for fasting glucose andrandom glucose. The ADA defines fasting as no [...] Standards of Medical Care in Diabetes 2016, [place] [employer]. Diabetes Care. 2016.39(Suppl 1). BUN34(H)7 - 21 mg/dL08/07/2025 11:46 AM [facility] LAB Creatinine1.33(H)0.58 - 0.96 mg/dL08/07/2025 11:46 AM [facility] KKBHvrdmd324139 - 144 mmol/L08/07/2025 11:46 AM [facility] LABPotassium4.43.7 - 5.1 mmol/L08/07/2025 11:46 AM EDT [facility] HJYXeuwqjir77127 - 107 mmol/L08/07/2025 11:46 AM EDTVETER[facility] BCFPE30758 - 30 mmol/L08/07/2025 11:46 AM [facility] LABAnion Bil483 - 15 mmol/L08/07/2025 11:46 AM [facility] LABEstimated Glomerular Filtration Rate42(L)>=60 mL/min/1.73m 08/07/2025 11:46 AM [facility] LABComment:Estimated Glomerular Filtration Rate (eGFR) is calculated using the 2020 CKD-EPI creatinine equation. This equation utilizes serum creatinine, sex, and age as parameters. The creatinine assay has traceable calibration to isotope dilution- mass spectrometry. Refer to KDIGO guidelines for clinical interpretation. In patients with unstable renal function, e.g. those with acute kidney injury, the eGFRmay not accurately reflect actual GFR.Specimen (Source)Anatomical Location / LateralityCollection Method / VolumeCollection TimeReceived TimeBloodBLOOD SPECIMEN / UnknownVenipuncture / Zyoxysi9408/07/2025 10:15 AM EDT08/07/2025 10:15 AM EDT Narrative Authorizing ProviderResult TypeResult StatusMinvera Balderas PA-CLABORATORYFinal ResultPerforming OrganizationAddressCity/State/ZIP CodePhone Number [facility] [address] [place] [address] * (ABNORMAL) COMPLETE BLOOD COUNT AND DIFFERENTIAL (08/07/2025 10:15 AM EDT) ComponentValueRef RangeTest MethodAnalysis TimePerformed AtPathologist SignatureWBC5.853.70 - 11.00 k/uL08/07/2025 10:24 AM EDTVETERANS [facility] LABRBC3.63(L)3.90 - 5.20 m/uL08/07/2025 10:24 AM [facility] IYBJvnpbgoubc58.6(L)11.5 - 15.5 g/dL08/07/2025 10:24 AM [facility]TN[facility] PQMAorhhwuimc09.1(L)36.0 - 46.0 % 08/07/2025 10:24 AM [facility] RJXWQP95.480.0 - 100.0 fL08/07/2025 10:24 AM EDTNOJ[facility] XOJDFZ45.2 26.0 - 34.0 pg08/07/2025 10:24 AM EDNOJ[facility] LABMCHC 33.030.5 - 36.0 g/dL08/07/2025 10:24 AM [facility]ST[facility] LABRDW-CV15.9(H)11.5 - 15.0 %08/07/2025 10:24 AM [facility] LABPlatelet Agluw323(L)150 - 400 k/uL08/07/2025 10:24 AM [facility] LABMPV9.29.0 - 12.7 fL08/07/2025 10:24 AM [facility] LABNeutrophils %66.5%08/07/2025 10:24 AM [facility] LABAbs Neut3.891.45 - 7.50 k/uL08/07/2025 10:24 AM EDT [facility] LABLymphocytes %23.8%08/07/2025 10:24 AM EDT [facility] LABAbs Lymph1.391.00 - 4.00 k/uL08/07/2025 10:24 [facility]Monocytes %6.0%08/07/2025 10:24 AM [facility] LABAbs Mono0.35<0.87 k/uL 08/07/2025 10:[facility]Eosinophils %3.1% 08/07/2025 10:24 [facility]Abs Eosin0.18<0.46 k/08/07/2025 10:24 [facility] LABBasophils %0.3 %08/07/2025 10:24 AM [facility]Abs Baso<0.03 <0.11 k/08/07/2025 10:24 AM [facility] LABImmature Granulocytes %0.3%08/07/2025 10:24 [facility] Abs Immature Gran<0.03<0.10 /08/07/2025 10:24 [facility] LABNRBC0.0/100 WBC08/07/2025 10:24 AM [facility] LABAbsolute nRBC<0.01<0.01 /08/07/2025 10:24 AM [facility] LABDiff EmgzYnfv63/22/2025 10:24 AM [facility] LABSpecimen (Source)Anatomical Location / Laterality Collection Method / VolumeCollection TimeReceived TimeBloodBLOOD SPECIMEN / UnknownVenipuncture / Mxymwfp7908/07/2025 10:15 AM EDT08/07/2025 10:15 AM EDT Narrative Authorizing ProviderResult TypeResult StatusMinvera HUDDLESTON-CLABORATORYFinal ResultPerforming OrganizationAddressCity/State/ZIP CodePhone Number [facility] [address] [place] [address] from Last 3 Months Insurance Care Teams Team MemberRelationshipSpecialtyStart DateEnd Date Nisa Shepherd [employer] [address] [place] [address] [place] [address] PCP - GeneralFaialy Chzpaluw04/7/22
--- OUTSIDE RECORDS SUMMARY | 2025-10-03 14:41 | XMS_ITS | Patient Health Record ---
Author Organization [facility] Address [address] [place] [address] Care Team Providers Care Bus Attendant Name Role Phone JwhomerCandelario Primary Care Provider Unavailabl e Reason For Referral No Information Plan Of Treatment No Information Insurance Providers Payer Name Payer Address Payer Phone Subscriber Number Group Number Insured Name Patient Relationship to Insured Coverage Start Date Coverage End Date [facility] [address] [place] [address] [id number] [id number] CAHRLY MEJIA Self - patient is the insured
--- OUTSIDE RECORDS SUMMARY | 2025-10-03 14:43 | XMS_ITS | CCD ---
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 Primary Care Provider Ruth [employer], [facility] Primary Care Provider Bunting, DO Vinay Primary Care Provider TROY Yusuf Emergency Provider TROY Yusuf Attending Provider Bunting, DO Vinay Attending Provider [phone] STARR Delcid Attending Provider Anh Delcid Unavailable Bunting, DO Ivnay Primary Care Provider MD Rafael Edouard Attending Provider [phone] Bunting, DO Vinay Primary Care Provider Edouard, MD Rafael Attending Provider Bunting, DO Vinay Attending Provider MD Anthony Rose Emergency Provider MD Kimberly Arteaga Admit Provider MD Kimberly Arteaga Attending Provider DO Krissy Easton Other Provider Conner [facility]- Queta Attending Provider [phone] BUNTING, DR MCLEAN Admitting Unavailable BUNTING, DR [...] DO Mclean Primary Care Provider Bunting, DO Vinay Attending Provider Bunting, DO Vinay Primary Care Provider [phone] Bunting, DO Vinay Attending Provider [phone] STARR Delcid Anh Attending Provider Bunting, DO Vinay Primary Care Provider Bunting, DO Vinay Attending Provider Ruth [facility] Primary Care Provider Bunting, DO Vinay Primary Care Provider MD Marilyn Stewart Attending Provider Bunting, DO Vinay R Other Provider DO Bakari Barboza M Emergency Provider [phone] MD Comfort Monteiro Admit Provider MD Comfort Monteiro Attending Provider [phone] KapDO Ottoniel linton M Other Provider Bunting, Vinay R Primary Care Provider Trae Mccarty MD Unavailable Bunting, DO Vinay Primary Care Provider Tamra DO Villegas M Emergency Provider [phone] MD Comfort Monteiro Admit Provider MD Comfort Monteiro Attending Provider KapDO Ottoniel linton M Other Provider Bunting, DO Vinay Attending Provider Ruth FERMIN, [facility] A. Primary Care Provider [phone] Bunting DO, Vinay Primary Care Provider Bunting DO, Vinay Attending Provider Conner CLEMENTS-C, Queta Benavides Attending Provider Bunting [...] Ugarte Attending Unavailable Verónica Ugarte Admitting Unavailable MouchliKyleed A. Attending Unavailable MouchliKyleed A. Admitting Unavailable Mouchli, Bretamad A. Attending Unavailable MouchKlyee lancasterd A. Attending Unavailable Giedraitis , Andrius Vytautas Attending Unavailable Giedraitis , Andrius Vytautmaurilio Attending Unavailable Giedraitis , Andrius Branytpricilla Attending Unavailable Bunting DO, Vinay Primary Care Provider [phone] Verónica Ugarte MD Attending Provider Verónica Ugarte MD Referring Provider [phone] TAMMY SALDIVAR Attending Unavailable TAMMY SALDIVAR Attending Unavailable WINDNAGELMICHAELQUETA C Attending Unavailable Bradley Rowland MD Attending Provider Bunting DO, Vinay Attending Provider Marilyn Stewart MD Other Provider Marilyn Stewart MD Attending Provider MoVerónica torres Attending Unavailable MoVerónica torres Attending Unavailable Jack Huffman DO Attending Provider [phone] Bunting, Vinay Attending Unavailable Bunting, Vinay Admitting Unavailable Bunting, Vinay Primary Care Unavailable Bunting, Vinay Primary Care Unavailable Windnagel, Queta C Admitting Unavailable Windnagel, Queta C Attending Unavailable Bunting, Vinay Attending Unavailable Bunting, Vinay Admitting Unavailable Bunting, Vinay Primary Care Unavailable Bunting, Vinay Attending Unavailable Bunting, Vinay Admitting Unavailable Bunting, Vinay Primary Care Unavailable Terry, Marilyn Referring Unavailable Bunting, Vinay Referring Unavailable Bunting, Vinay Primary Care Unavailable Self, Referral Admitting Unavailable Self, Referral Attending Unavailable Giedraitis, Andrius Admitting Unavailable Giedraitis, Andrius Attending Unavailable Bunting, Vinay Primary Care Unavailable Bunting, Vinay Admitting Unavailable Bunting, Vinay Primary Care Unavailable Terry, Marilyn Consulting Unavailable Bunting, Vinay Attending Unavailable Bunting, Vinay Admitting Unavailable Bunting, Vinay Primary Care Unavailable Bunting, Vinay Attending Unavailable Verónica Ugarte A Referring Unavailable Anselmo Stein Admitting Unavailable Anselmo Stein Attending Unavailable Sheila, Vinay Primary Care Unavailable CYRUS, DAKSHA M Referring [...] Unavailable RUTH, NISA A. Primary Care Unavailable Unavailable Unavailable Unavailable Allergies Allergy ClassificationReported Allergen(s)Allergy TypeDate of OnsetReaction(s) FacilityAcetaminophen / Codeine (1 source)Acetaminophen / CodeineDrug Qxavmwc16-49-4530Jwkpp: See Comments [facility] (1 source)CodeineDrug Rlnziqg28-92-9239Aysfr: See CommentsAvita Health System (20 sources)Acetaminophen / Codeine; Translations: [acetaminophen-codeine]Drug Knxzlvx72-33-0161Laflh stomach (finding), Other: See CommentsMain [facility] Comment on above:pt states she is unwilling to try even plain tylenol after this experience even though she states she took tylenol prior to this and had no problems (20 sources)Codeine; Translations: [codeine]Drug Rxfnyym58-53-9000Fwors: See Comments, OtherPrem[facility] (4 sources)Acetaminophen / Codeine; Translations: [Tylenol with Codeine #3]Drug AllergyUnknowOhioHealth [facility] (1 source)traMADolDrug AllergyThe [facility] (20 sources)Acetaminophen; Translations: [acetaminophen]Drug Awqdxzm93-40-3572 Not allergic to tylenolPremier Health [facility] (14 sources)Acetaminophen / Codeine; Translations: [ACETAMINOPHEN-CODEINE]Drug Zcphfrc28-63-4081ClgtoZDJF Healthcare Medications Current Medications MedicationDrug Class(es)DatesSig (Normalized)Sig (Original)[id number] 200 actuat albuterol 0.09 mg/actuat metered dose inhaler (20 sources)beta2-Adrenergic AgonistStart: 32-02-1551elppwekwj HFA (PROVENTIL HFA, VENTOLIN HFA) 90 mcg/actuation inhaler 10/12/2023 ActiveStart: 10-12-2023 take 2 puff(s) by mouth every four hours as needed for coughalbuterol HFA (PROVENTIL HFA, VENTOLIN HFA) 90 mcg/actuation inhaler INHALE 2 PUFFS BY MOUTH EVERY 4 HOURS NEEDED FOR COUGH 10/12/2023 ActiveStart: 15-86-4121uwdz 1 puff(s) by inhalation every four to six hoursAlbuterol Sulfate Active 1 PUFF INHALATION EVERY 4-6 HOURS December 26, 2017 2:57pmStart: 17-25-2564bldi 1 puff(s) by inhalation every four to six hoursAlbuterol Sulfate Active 1 PUFF INHALATION EVERY 4-6 HOURS December 26, 2017 12:00amStart: 12-26-2017 End: 58-84-6596pzkp 1 puff(s) by inhalation every four to six hours as needed for wheezingAlbuterol Sulfate 90 mcg/actuation Hfa Aerosol Inhaler Discontinued 1 PUFF INHALATION EVERY 4-6 HOURS as needed for Shortness Of Breath Or Wheezing December 26, 2017 1:00am March 11, 2023 5:40pmStart: 12-26-2017 End: 82-54-6899tfco 1 puff(s) by inhalation every four to six hoursAlbuterol Sulfate Discontinued 1 PUFF INHALATION EVERY 4-6 HOURS December 26, 2017 12:00am March 11, 2023 4:40pmStart: 12-26-2017 End: 53-82-6364jtpn 1 puff(s) by inhalation every four to six hoursAlbuterol Sulfate Discontinued 1 PUFF INHALATION EVERY 4-6 HOURS December 26, 2017 1:00am March 11, 2023 5:40pmStart: 21-54-8184nasq 1 puff(s) by inhalation every four to six hoursAlbuterol Sulfate Active 1 PUFF INHALATION EVERY 4-6 HOURS December 26, 2017 12:00amComment on above:INHALE 2 PUFFS BY MOUTH EVERY 4 HOURS NEEDED FOR COUGHallopurinol 300 mg oral tablet (20 sources)Xanthine Oxidase InhibitorStart: 55-70-3975cxth 1 tablet by mouth once dailyAllopurinol 300 mg tablet Active 300 MG PO Daily May 11, 2024 12:00am Complies with drug therapyStart: 01-21-2022 End: 27-03-1392ftrw 1 tablet by mouth twice dailyAllopurinol 100 mg tablet Discontinued 100 MG PO Twice daily December 29, 2022 1:00am May 11, 2024 11:49am End: 15-22-6027lyrp 1 tablet by mouth once dailyallopurinol (ZYLOPRIM) 100 mg tablet Take 100 mg by mouth once daily. 07/15/2024 DiscontinuedComment on above: Take 100 mg by mouth once daily.amoxicillin 875 mg / clavulanate 125 mg oral tablet (6 sources)Penicillin-class AntibacterialStart: 20-67-9452mznrcdegzxb- clavulanate potassium (AUGMENTIN) 875-125 mg per tablet 01/02/2025 ActiveStart: 76-57-5858bdgh 1 tablet by mouth every twelve hoursAmoxicillin-Pot Clavulanate 875-125 MG 1 tablet Orally every 12 hrs for 10 day(s) Feb, Not-Taking ASCORBIC ACID, VITAMIN C, ORAL (20 sources)take 500 mg by mouth once dailyASCORBIC ACID, VITAMIN C, ORAL Take 500 mg by mouth once daily. Activetake 500 mg by mouth once dailyASCORBIC ACID, VITAMIN C, ORAL Take 500 mg by mouth once daily. 0 ActiveComment on above:Take 500 mg by mouth once daily.aspirin 81 mg oral tablet (20 sources)Platelet Aggregation Inhibitor, Nonsteroidal Anti-inflammatory Drug Start: 76-60-9241vuvg 1 tablet by mouth once dailyAspirin 81 mg Tablet Active 81 MG PO Daily March 11, 2023 12:00am Complies with drug therapyStart: 89-92-8069mxen 1 tablet by mouth once dailyaspirin 81 mg Oral EC Tab 81 mg = 1 tab(s), Oral, Daily, # 30 tab(s), Refills(s) 0, Pharmacy: [id number], 165, cm, 01/19/22 22:12:00 EST, Height/Length Dosing, 90, kg, 01/19/22 22:12:00 EST, Weight Dosing Start Date: 01/21/22 Status: Ordered Quantity: 30.0 Unit: tab(s) Repeat number: 1Comment on above:Take 81 mg by mouth once daily. atenolol 50 mg oral tablet (20 sources)beta-Adrenergic BlockerStart: 67-60-4839utmx 1 tablet by mouth once dailyAtenolol 50 mg Tablet Active 50 MG PO Daily December 26, 2017 1:00am Complies with drug therapyAtenolol ActiveComment on above:Take 50 mg by mouth once daily.atorvastatin 20 mg oral tablet (20 sources)HMG-CoA Reductase InhibitorStart: 12-97-3211xrls 1 tablet by mouth once dailyAtorvastatin 20 mg Tablet Active 20 MG PO Daily December 26, 2017 1:00am Complies with drug therapyAtorvastatin Calcium ActiveComment on above: Take 20 mg by mouth once daily.baclofen 10 mg oral tablet (11 sources)gamma-Aminobutyric Acid-ergic AgonistStart: 41-91-9071xhnd 5 mg by mouth once daily at bedtimeBaclofen 10 mg tablet Active 5 MG PO Daily at bedtime July 05, 2025 12:00am Complies with drug therapyStart: 06-11-9716snzw 5 mg by mouth once dailybaclofen 10 mg tablet Take 5 mg by mouth once daily. 03/30/2025 ActiveStart: 93-71-5500wnvphjjo 10 mg Tab Refills(s) 0 Start Date: 03/30/25 Status: Ordered Repeat number: 1Biotin (2 sources)Biotin Activecalcium ascorbate 500 mg oral tablet (16 sources)Start: 93-31-8441ocyu 1 tablet by mouth once dailyAscorbate Calcium (Vitamin C) 500 mg tablet Active 500 MG PO Daily May 11, 2024 12:00am Complieswith drug therapycholecalciferol 0.025 mg oral capsule (20 sources)Vitamin DStart: 54-43-5334djmn 1 capsule by mouth once daily Cholecalciferol (Vitamin D3) (Vitamin D3) 25 mcg (1,000 unit) capsule Active 25 MCG PO Daily July 21, 2024 12:00am Complies with drug therapyStart: 05-11-2024 End: 71-42-9737shpi 1 capsule by mouth once dailyCholecalciferol (Vitamin D3) 125 mcg (5,000 unit) capsule Discontinued 125 MCG PO Daily May 11, 2024 12:00am July 21, 2024 12:26pmStart: 19-51-5382ugon 1 tablet by mouth once dailycholecalciferol 1000 intl units oral tablet 25 mcg = 1 tab(s), Oral, Daily, Prophylaxis Start Date:01/20/22 Status: Ordered Repeat number: 1Start: 01-20-2022 take 1 tablet by mouth once dailycholecalciferol 1000 intl units oral tablet 25 mcg = 1 tab(s), Oral, Daily, Prophylaxis Start Date:01/20/22 Status: OrderedStart: 81-68-3102fimm 1 tablet by mouth once dailycholecalciferol 1000 intl units oral tablet 25 mcg = 1 tab(s), Oral, Daily Start Date: 01/20/22 Status: Orderedtake 1 tablet by mouth in the morningcholecalciferol (Vitamin D-3) 25 MCG (1000 UT) tablet Take 1,000 Units by mouth in the morning. ActiveComment on above:Take 1,000 Units by mouth once daily.diphenhydrAMINE hydrochloride 12.5 mg chewable tablet (12 sources)Histamine-1 Receptor AntagonistStart: 81-68-4359gdhexpssujVIWKJ HCl (CHILDREN'S BENADRYL ALLERGY) 12.5 mg chewable tablet 25 mg. 09/29/2024 Active Fluzone High-Dose Quadrivalent syringe (13 sources)Start: 96-78-0909Lfavoge High-Dose Quadrivalent syringe Inject 0.7 mL into the shoulder, thigh, or buttocks 1 (one) time 11/25/2023 Active glimepiride 2 mg oral tablet (20 sources)SulfonylureaStart: 24-71-3922sarv 1 tablet by mouth twice daily Glimepiride 2 mg Tablet Active 2 MG PO Twice daily December 26, 2017 1:00am Complies with drug therapyStart: 69-92-7729oaxp 2 mg by mouth once daily in the morningGlimepiride Active 2 MG PO Every morning December 26, 2017 12:00am Glimepiride ActiveComment on above:Take 2 mg by mouth daily with breakfast. hydroCHLOROthiazide 12.5 mg / lisinopril 20 mg oral tablet (20 sources)Thiazide Diuretic, Angiotensin Converting Enzyme InhibitorStart: 28-23-2900kooq 1 tablet by mouth once dailyLisinopril-Hydrochlorothiazide 20- 12.5 mg Tablet Active 1 TAB PO Daily December 26, 2017 1:00am Complies with drug therapytake 10-12.5 mg by mouth oncelisinopril-hydroCHLOROthiazide (PRINZIDE,ZESTORETIC) 10-12.5 mg per tablet Take 1 tablet by mouth once daily. ActiveLisinopril-hydroCHLOROthiazide ActiveComment on above:Take 1 tablet by mouth once daily.loratadine 10 mg oral tablet (5 sources)Start: 17-37-0108ljlr 1 tablet by mouth once dailyLoratadine (Claritin) 10 mg tablet Active 10 MG PO Daily July 24, 2025 12:00am Complies with drug therapyStart: 14-01-8455Ppeacizb Daily, Takes due too itching from Paulino, Refills(s) 0 Start Date: 03/30/25 Status: Ordered Repeat number: 1loratadine (CLARITIN) 5 mg/5 mL syrup Take 5 mg by mouth as needed for cold/allergy symptoms. ActiveMagnesium (4 sources)Start: 70-01-3684Fkqlhnatq Magnesium Start Date: 03/28/24 Status: Ordered Repeat number: 1Start: 30-47-1005Mcvxujiyk Magnesium Start Date: 03/28/24 Status: Orderedmagnesium oxide 400 mg oral tablet (20 sources)Start: 90-37-8391mydi 1 tablet by mouth twice dailyMagnesium Oxide 400 mg magnesium tablet Active 400 MG PO Twice daily May 11, 2024 12:00am Complies with drug therapyStart: 49-43-8459rqjz 1 tablet by mouth once daily magnesium oxide 400 mg magnesium tab Take 1 tablet by mouth once daily. 02/03/2023 ActiveStart: 53-81-0894yxww 1 tablet by mouth once dailyMAGNESIUM OXIDE ORAL Take 1 tablet by mouth once daily. 0 02/03/2023 ActiveComment on above:Take 1 tablet by mouth twice daily.Take 1 tablet by mouth once daily. omeprazole 20 mg delayed release oral capsule (20 sources)Proton Pump InhibitorStart: 01-96-2866njpe 1 capsule by mouth once dailyOmeprazole 20 mg capsule,delayed release(DR/EC) Active 20 MG PO Daily May 11, 2024 12:00am Complies with drug therapyStart: 12-26-2017 End: 35-12-3121lbkg 1 tablet by mouth once dailyOmeprazole Magnesium (Prilosec Otc) 20 mg Tablet,Delayed Release (Dr/Ec) Discontinued 20 MG PO Daily December 26, 2017 1:00am May 11, 2024 11:53amPriLOSEC ActiveComment on above:Take 20 mg by mouth once daily.pioglitazone 15 mg oral tablet (13 sources)Peroxisome Proliferator Receptor alpha Agonist, Peroxisome Proliferator Receptor gamma Agonist, ThiazolidinedioneStart: 85-67-5445rthy 1 tablet by mouth once dailyPioglitazone 15 mg tablet Active 15 MG PO Daily July 05, 2025 12:00am Complies with drug therapyPrenatal (2 sources) ActiveResmetirom (16 sources)Start: 23-14-7640uemx 1 tablet by mouth once dailyResmetirom (Rezdiffra) 80 mg tablet Active 80 MG PO Daily May 11, 2024 12:00am Complies with drug therapyStart: 36-21-4370fknw 1 tablet by mouth once dailyStart: 84-17-5938geor 1 tablet by mouth once dailyResmetirom (Rezdiffra) 80 mg tablet Active 80 MG PO Daily May 10, 2024 11:00pmStart: 59-82-8650cyyk 1 tablet by mouth once dailyResmetirom (Rezdiffra) 80 mg tablet Active 80 MG PO Daily May 11, 2024 12:00amresmetirom (REZDIFFRA) 80 mg tablet (9 sources)Start: 97-84-1755srpztcxdwg (REZDIFFRA) 80 mg tablet once daily. 05/11/2024 Activeresmetirom 80 MG Oral Tablet [Rezdiffra] (3 sources)Start: 82-12-3834Apbhnhesy 80 mg oral tablet Refills(s) 0 Start Date: 09/29/24 Status: Ordered Repeat number: 1Start: 51-08-0376Tcrlhyxus 80 mg oral tablet Refills(s) 0 Start Date: 09/29/24 Status: OrderedrOPINIRole 2 mg oral tablet (20 sources)Nonergot Dopamine AgonistStart: 12-29-2022 End: 55-31-9282bjsl 1 tablet by mouth once daily at bedtimeRopinirole 2 mg tablet Active 2 MG PO Daily at bedtime May 11, 2024 12:00am Complies with drug therapyStart: 46-91-3023ddid 2 tablets by mouth at bedtimeropinirole 0.5 mg Tab 1 mg = 2 tab(s), Oral, Bedtime, Refills(s) 0, Other (see comment) Start Date:01/21/22 Status: Ordered Repeat number: 1take 1 tablet by mouth twice daily rOPINIRole (REQUIP) 0.5 mg tablet Take 0.5 mg by mouth twice daily. Activetake 1 tablet by mouth once daily at bedtimerOPINIRole (REQUIP) 0.5 mg tablet Take 0.5 mg by mouth daily at bedtime. 0 ActiveComment on above:Take 0.5 mg by mouth daily at bedtime.Take 0.5 mg by mouth twice daily.SITagliptin 50 mg oral tablet (20 sources)Dipeptidyl Peptidase 4 InhibitorStart: 77-42-3551bcdh 1 tablet by mouth once dailySitagliptin Phosphate (Januvia) 50 mg tablet Active 50 MG PO Daily May 11, 2024 12:00am Complieswith drug therapyComment on above:Take 1 tablet by mouth every afternoon.vit B complex no.12/niacin,B3, (VITAMIN B COMPLEX NO.12-NIACIN ORAL) (1 source)vit B complex no.12/niacin,B3, (VITAMIN B COMPLEX NO.12-NIACIN ORAL) Vitamin B 12 Activevitamin B12 (20 sources)Vitamin M29Rxpsq: 68-32-7422Remivze B12 Refills(s) 0 Start Date: 04/15/23 Status: Ordered Repeat number: 1Start: 70-58-3903Ttzomne B12 Refills(s) 0 Start Date: 04/15/23 Status: OrderedStart: 81-36-1597trey 1 tablet by mouth once dailyCyanocobalamin (Vitamin B-12) (Vitamin B-12) 1,000 mcg Tablet Active 1000 MCG PO Daily March 13, 2023 12:00am Complies with drug therapyStart: 03-11-2023 End: 98-70-5545pjji 1 tablet by mouth once dailyCyanocobalamin (Vitamin B-12) (Vitamin B-12) 50 mcg Tablet Discontinued 50 MCG PO Daily February 12:00am March 13, 2023 9:52amVitamin D3 (2 sources)Vitamin D3 Active Completed/Discontinued Medications MedicationDrug Class(es)DatesSig (Normalized)Sig (Original)Albuterol Sulfate 90 mcg/actuation Hfa Aerosol Inhaler (5 sources)Start: 12-26-2017 End: 59-65-4006dbhy 1 puff(s) by inhalation every four to six hours as needed for wheezingAlbuterol Sulfate 90 mcg/actuation Hfa Aerosol Inhaler Discontinued 1 PUFF INHALATION EVERY 4-6 HOURS as needed for Shortness Of Breath Or Wheezing December 26, 2017 1:00am March 11, 2023 5:40pmStart: 12-26-2017 End: 77-17-3547sxet 1 puff(s) by inhalation every four to six hours as needed for wheezingAlbuterol Sulfate 90 mcg/actuation Hfa Aerosol Inhaler Discontinued 1 PUFF INHALATION EVERY 4-6 HOURS as needed for Shortness Of Breath Or Wheezing December 26, 2017 12:00am March 11, 2023 4:40pmascorbic acid 500 mg oral tablet (20 sources)Vitamin CStart: 01-20-2022 End: 82-75-3104dhtj 1 tablet by mouth once dailyAscorbic Acid (Vitamin C) (Vitamin C) 500 mg Tablet Discontinued 500 MG PO Daily March 11, 2023 12:00am May 11, 2024 11:48amVitamin C Activebenzonatate 200 mg oral capsule (20 sources)Non-narcotic AntitussiveStart: 12-26-2017 End: 50-37-5378rtmf 1 capsule by mouth twice daily as needed for cough Benzonatate 200 mg Capsule Discontinued 200 MG PO Twice daily as needed for Cough December 26, 2017 1:00am December 29, 2022 2:19pmcalcium carbonate 250 mg / magnesium carbonate 300 mg oral tablet (20 sources)Start: 02-04-2023 End: 58-77-9366Kcdwaqt Carb-Magnesium Carb 250-300 mg tab Take by mouth. 02/04/2023 07/15/2024 DiscontinuedStart: 90-66-2937PipkgGdop 300 oral tablet 1 tab(s), Oral, Daily, 150 tab(s), Refill(s) 0, [facility], 160, cm, 12/24/22 10:14:00 EST, Height/Length Dosing, 97.2, kg, 12/24/22 10:14:00 EST, Weight Dosing Start Date: 02/04/23 Status: Ordered Quantity: 150.0 Unit: tab(s) Repeat number: 1Comment on above:Take by mouth.cefdinir 300 mg oral capsule (20 sources)Cephalosporin AntibacterialStart: 12-26-2017 End: 65-66-4816uhwp 1 capsule by mouth every twelve hoursCefdinir 300 mg Capsule Discontinued 300 MG PO Q12H December 26, 2017 1:00am December 29, 2022 2 :20pmCefdinir Not-Takingcephalexin 500 mg oral capsule (20 sources)Cephalosporin AntibacterialStart: 03-13-2023 End: 53-91-1641zwii 1 capsule by mouth twice dailyCephalexin 500 mg capsule Discontinued 500 MG PO Twice daily 10 March 13, 2023 12:00am May 11, 2024 11:48amStart: 07-22-2022 End: 27-70-6713zzqn 1 capsule by mouth every eight hoursCephalexin 500 mg capsule Discontinued 500 MG PO Q8H 05 06July 22, 2022 12:00am December 29, 2022 2:20pmcodeine phosphate 2 mg/ml / promethazine hydrochloride 1.25 mg/ml oral solution (20 sources)Opioid Agonist, PhenothiazineStart: 12-26-2017 End: 14-69-3830ziav 1 mL by mouth every four hours as needed for cough Promethazine-Codeine 6.25-10 mg/5 mL Syrup Discontinued 5 ML PO Q4H as needed for Cough 120 December 26, 2017 1:00am December 29, 2022 2:21pmdapagliflozin 10 mg oral tablet (20 sources)Sodium-Glucose Cotransporter 2 InhibitorStart: 07-06-2024 End: 97-90-2929bxbu 1 tablet by mouth once dailyDapagliflozin Propanediol (Farxiga) 10 mg tablet Discontinued 10 MG PO Daily July 21, 2024 12:00am December 27, 2024 3:21pm On Hold: Hold until seen by PCP. discuss alternative therapydiclofenac sodium 75 mg delayed release oral tablet (20 sources)Nonsteroidal Anti-inflammatory DrugStart: 12-29-2022 End: 49-56-0407rejd 1 tablet by mouth twice dailyDiclofenac Sodium 75 mg tablet,delayed release (DR/EC) Discontinued 75 MG PO Twice daily December 29, 2022 1:00am March 13, 2023 9:47amStart: 04-23-2022 End: 63-00-7350jjwg 1 tablet by mouth once dailydiclofenac sodium 75 mg Oral EC Tab 75 mg = 1 tab(s), Oral, Daily, Refills(s) 0, Pain Start Date: 04/23/22 Status: OrderedStart: 06-31-2896ngouwqpxqi sodium 75 mg Oral EC Tab Refills(s) 0 Start Date: 04/23/22 Status: OrderedComment on above:Take 75 mg by mouth once daily. doxycycline monohydrate 100 mg oral capsule (20 sources)Tetracycline-class DrugStart: 12-26-2017 End: 47-64-6819oaba 1 capsule by mouth twice dailyDoxycycline Monohydrate 100 mg Capsule Discontinued 100 MG PO Twice daily December 26, 2017 1:00am December 29, 2022 2:20pmergocalciferol 0.2 mg/ml oral solution (20 sources)Provitamin D2 CompoundStart: 03-11-2023 End: 83-78-9469ilou 200 ug by mouth once dailyErgocalciferol (Vitamin D2) 200 mcg/mL (8,000 unit/mL) Drops Discontinued 200 MCG PO Daily March 11, 2023 12:00am May 11, 2024 11:46amferrous sulfate 325 mg oral tablet (3 sources) End: 76-41-2508tnbupmx sulfate 325 mg (65 mg iron) tablet Take 325 mg by mouth. 0 07/24/2023 DiscontinuedComment on above:Take 325 mg by mouth.fluticasone propionate 0.05 mg/actuat metered dose nasal spray (20 sources)CorticosteroidStart: 06-84-6618duya 1 spray(s) nasal route once dailyFluticasone Propionate 50 MCG/ACT 1 spray in each nostril Nasally Once a day for 21 days Feb, Not-TakingStart: 12-26-2017 End: 21-56-3758Egfehjolbui Propionate 50 mcg/actuation [place] Varina,Suspension Discontinued 1 SPRAY INTRANASAL Daily December 26, 2017 1:00am December 29, 2022 2:20pmfurosemide 20 mg oral tablet (20 sources)Loop DiureticStart: 09-02-2022 End: 57-10-0035tyru 1 tablet by mouth once daily in the morningFurosemide 20 mg tablet Discontinued 20 MG PO Every morning December 29, 2022 1:00am December 27, 2024 3:21pm On Hold: Continue to hold, follow-up with PCP to restart Comment on above:Take 20 mg by mouth once daily.gabapentin 300 mg oral capsule (20 sources)Anti-epileptic AgentStart: 03-29-2024 End: 72-09-7358izeq 1 capsule by mouth three times dailyGabapentin 300 mg capsule Active 300 MG PO Three times daily December 27, 2024 3:21pm Complies with drug therapyStart: 03-29-2024 End: 54-16-6449ojzo 1 capsule by mouth twice daily, then take 2 capsules by mouth at bedtimeGabapentin 300 mg capsule Discontinued 300 MG PO Twice daily May 11, 2024 11:50am December 3:23pm takes 1 in the afternoon and 2 before bedtimeStart: 12-26-2017 End: 09-12-2070zugp 3 capsules by mouth at bedtimeGabapentin 300 mg Capsule Discontinued 900 MG PO Bedtime December 26, 2017 1:00am May 111:53am Start: 12-26-2017 End: 17-08-2426ooby 900 mg by mouth at bedtimeGabapentin Discontinued 900 MG PO Bedtime December 26, 2017 12:00am May 11, 2024 10:53amStart: 66-50-4286nivo 300 mg by mouth three times dailyGabapentin Active 300 MG PO Three times daily December 26, 2017 12:00amtake 1 capsule by mouth once daily at bedtime gabapentin (NEURONTIN) 300 mg capsule Take 300 mg by mouth daily at bedtime. ActiveGabapentin ActiveComment on above:Take 300 mg by mouth daily at bedtime. Honey (Medihoney (Honey)) 100 % paste (20 sources)Start: 12-29-2022 End: 01-03-8577Yjpqw (Medihoney (Honey)) 100 % paste Discontinued 1 APPLIC TOPICAL Twice daily December 292:00am March 11, 2023 4:44pmStart: 12-29-2022 End: 79-81-3626Hggsu (Medihoney (Honey)) 100 % paste Discontinued 1 APPLIC TOPICAL Twice daily December 29:00am March 11, 2023 5:44pmStart: 60-04-2861Evoem (Medihoney (Honey)) 100 % paste Active 1 APPLIC TOPICAL Twice daily December 29, 2022 12:00amMEDIHONEY, HONEY, 100 % pste (19 sources)Start: 12-01-2022 End: 81-38-7245DFUXSSDQG, HONEY, 100 % pste APPLY A THIN LAYER TWICE DAILY 12/01/2022 07/15/2024 DiscontinuedStart: 32-39-1149HZRFCAQPC, HONEY, 100 % pste APPLY A THIN LAYER TWICE DAILY 0 12/01/2022 ActiveComment on above:APPLY A THIN LAYER TWICE DAILYmetFORMIN hydrochloride 1000 mg oral tablet (20 sources)BiguanideStart: 12-26-2017 End: 51-71-3493fpsa 1 tablet by mouth twice dailyMetformin 1,000 mg Tablet Discontinued 1000 MG PO Twice daily December 26, 2017 1:00am July 22, 2024 1:23pm End: 61-12-8152obvv 1000 mg by mouth once dailymetformin HCl (METFORMIN ORAL) Take 1,000 mg by mouth once daily. 07/15/2024 DiscontinuedmetFORMIN HCl Active Comment on above:Take 1,000 mg by mouth once daily.Omeprazole Magnesium (Prilosec Otc) 20 mg Tablet,Delayed Release (Dr/Ec) (17 sources)Start: 12-26-2017 End: 07-88-7047ksmc 1 tablet by mouth once dailyOmeprazole Magnesium (Prilosec Otc) 20 mg Tablet,Delayed Release (Dr/Ec) Discontinued 20 MG PO Daily December 26, 2017 12:00am May 11, 2024 10:53amStart: 12-26-2017 End: 11-07-0443wvzn 1 tablet by mouth once dailyOmeprazole Magnesium (Prilosec Otc) 20 mg Tablet,Delayed Release (Dr/Ec) Discontinued 20 MG PO Daily December 26, 2017 1:00am May 11, 2024 11:53amStart: 61-46-0546ufuv 1 tablet by mouth once dailyOmeprazole Magnesium (Prilosec Otc) 20 mg Tablet,Delayed Release (Dr/Ec) Active 20 MG PO Daily December 26, 2017 1:00amStart: 01-64-2547imgw 1 tablet by mouth once dailyOmeprazole Magnesium (Prilosec Otc) 20 mg Tablet,Delayed Release (Dr/Ec) Active 20 MG PO Daily December 26, 2017 12:00am predniSONE 20 mg oral tablet (2 sources)Start: 10-20-2023 End: 10-31-9677zbtz 2 tablets by mouth once daily, then take 1 tablet by mouth once daily, then take 0.5 tablet bymouth once dailypredniSONE (DELTASONE) 20 mg tablet TAKE 2 TABLETS BY MOUTH DAILY FOR 2 DAYS THEN TAKE 1 TABLET BY MOUTH DAILY FOR 2 DAYS THEN TAKE ONE-HALF TABLET BY MOUTH DAILY FOR 2 DAYS 0 10/20/2023 01/29/2024 Discontinued (Course of therapy completed)Comment on above:TAKE 2 TABLETS BY MOUTH DAILY FOR 2 DAYS THEN TAKE 1 TABLET BY MOUTH DAILY FOR 2 DAYS THEN TAKE ONE-HALF TABLET BY MOUTH DAILY FOR 2 DAYSVitamin D (2 sources)Vitamin D Not-Taking Problems Active Problems Problem ClassificationProblemDateDocumented DateEpisodic/ChronicAcquired foot deformities (20 sources)Acquired right hallux valgus; Translations: [Hallux valgus (acquired), right foot]Onset: 606747-55-6096MhjaunpBoxqg and unspecified renal failure (20 sources)Injury of kidney; Translations: [Acute kidney failure, unspecified] Onset: 192139-51-0265TqfcwgalSuqtz bronchitis (20 sources)Acute bronchitis; Translations: [Acute bronchitis, unspecified] 30-15-3067ZdfhrtjcTudjd cerebrovascular disease (2 sources)Lacunar infarction; Translations: [Other cerebral infarction due to occlusion or stenosis of small artery]18-93-3338EvrqfozDylq and rectal conditions (14 sources)Rectal logqc93-74-6902TtndtqrtExyzxdr kidney disease (20 sources)Chronic kidney disease stage 3; Translations: [Stage 3 chronic kidney disease]Onset: 607466-51-7293GzlkqqdYegpcrn kidney disease (2 sources)Chronic kidney disease; Translations: [Chronic kidney disease, stage 3 unspecified]Onset: 46-39-4212Vkafrsknrgc and hemorrhagic disorders (4 sources)Thrombocytopenic disorder; Translations: [Thrombocytopenia, unspecified]Onset: 118966-65-5446MmqnvqiYitdgntyua and other anemia (2 sources)Anemia due to chronic blood loss; Translations: [Iron deficiency anemia secondary to blood loss (chronic)]Onset: 06-32-6904SipyoayQfiibwhhhv and other anemia (17 sources)Anemia due to blood axaw66-31-9860VvzuwcfCfbofejqgx and other anemia (20 sources)Iron deficiency anemia due to blood loss; Translations: [Iron deficiency anemia secondary to blood loss (chronic)]Onset: 86-90-4628Paagqwe Deficiency and other anemia (4 sources)Iron deficiency anemia secondary to blood loss (chronic); Translations: [IRON DEFIC ANEMIA SEC BLD LOSS CHRN]Onset: 54-99-2998Jibztlp Deficiency and other anemia (1 source)Anemia; Translations: [Anemia in stage 3a chronic kidney disease (HCC)]15-55-9341IxvwbzjMlviumwykf and other anemia (2 sources)Anemia in chronic kidney disease; Translations: [Anemia in chronic kidney disease]Onset: 73-31-8404PinpskyBgvfsbqxrb and other anemia (20 sources)Anemia; Translations: [Anemia, unspecified]Onset: 01-20-2022 11-76-0644DhtprmaqDhhauoyhry and other anemia (6 sources)Iron deficiency anemia secondary to inadequate dietary iron intake; Translations: [Other iron deficiency anemias]EpisodicDeficiency and other anemia (6 sources)Iron deficiency anemia; Translations: [Iron deficiency anemia, unspecified]33-98-3419JfnramquUlshqmlzdv and other anemia (1 source)Deficiency and other anemia; Translations: [Anemia in stage 3a chronic kidney disease (HCC)]Onset: 44-00-5583Ahkdckok mellitus with complications (20 sources)Type 2 diabetes mellitus with diabetic chronic kidney disease; Translations: [Type 2 diabetes mellitus]Onset: 86-66-1404DwanclmOcaacofw mellitus without complication (20 sources)Type 2 diabetes mellitus without complication; Translations: [Type 2 diabetes mellitus without complications]Onset: 17-17-8343WubhlpiMvdiyyjde of lipid metabolism (20 sources)Hyperlipidemia; Translations: [Hyperlipidemia, unspecified]Onset: 250055-61-3956RnlufwmIougizbaroqnea and diverticulitis (14 sources)Diverticular eemlhsq70-19-0758TjplybjLbuatsctdx disorders (20 sources)Gastroesophageal reflux disease without esophagitis; Translations: [Gastro-esophageal reflux disease without esophagitis]Onset: 60-69-3970Nxcbsku Essential hypertension (20 sources)Essential hypertension; Translations: [Essential (primary) hypertension]Onset: 016959-29-6373JclomafNabwfanyubm (14 sources)Ugeacgkpgta03-04-6256LguoddibTzhjkgxsx (1 source)Nonalcoholic steatohepatitis; Translations: [Nonalcoholic steatohepatitis (ALFONSO)]Onset: 86-62-9935RgnruefGwiioaccwerb with complications and secondary hypertension (20 sources)Hypertensive urgency ; Translations: [Hypertensive urgency]Onset: 401068-15-8104ForrlrgEofe disorders (13 sources)Depressive disorder; Translations: [Depressive disorder]Onset: 337065-11-2424PdukejqRcsuxf and vomiting (14 sources)Nausea; Translations: [Nausea]Onset: 47-33-1614HhuogehfWhwryhoycwy deficiencies (14 sources)Vitamin B deficiency; Translations: [Deficiency of other specified B group vitamins]Onset: 66-53-1456IwyrhjhgRsyjo and unspecified benign neoplasm (14 sources)Gastric ewfly11-34-9475XlpxsojjSqulv and unspecified benign neoplasm (13 sources)History of polyp of oxaqc05-38-4146GpbjogozNsjjl diseases of kidney and ureters (19 sources)Secondary hyperparathyroidism; Translations: [Secondary hyperparathyroidism of renal origin]98-30-3406YtfvpiaXpwbe diseases of kidney and ureters (14 sources)Secondary hyperparathyroidism of renal origin; Translations: [Secondary hyperparathyroidism (of renal origin)]Onset: 388762-66-5576 ChronicOther ear and sense organ disorders (17 sources)Mixed conductive and sensorineural hearing loss, bilateral; Translations: [Mixed conductive and sensorineural hearing loss, bilateral]Onset: 090486-30-3418OmnxzpdPelsg gastrointestinal disorders (2 sources)H/O: gastrointestinal disease; Translations: [Personal history of other diseases of the digestive system]Onset: 06-15-6179KgsbtdkiWsxup hereditary and degenerative nervous system conditions (20 sources)Restless legs; Translations: [Restless legs syndrome]Onset: 687161-89-8547TavwugqXvejd hereditary and degenerative nervous system conditions (7 sources)Restless legs syndrome; Translations: [Restless legs syndrome (RLS)] ChronicOther inflammatory condition of skin (1 source)Pruritus of skin; Translations: [Pruritus, unspecified]Onset: 73-49-7438MaejddpkRwsut inflammatory condition of skin (5 sources)Mcwrfai39-81-3590AhkeegooOgdwf liver diseases (13 sources)Steatosis of liver; Translations: [Fatty (change of) liver, not elsewhere classified]Onset: 68-55-2401RkkugiqVkvcc liver diseases (10 sources)Hepatic fibrosis; Translations: [Hepatic fibrosis, unspecified] Onset: 72-57-0861CwsvcdaXwphp liver diseases (1 source)Fatty (change of) liver, not elsewhere classified; Translations: [Fatty (change of) liver, not elsewhere classified]Onset: 99-82-7636OmqboakRkkhm liver diseases (1 source)Enzyme level - finding; Translations: [Abnormal levels of other serum enzymes]Onset: 05-78-1679ZvwymxkyBvjzz liver diseases (13 sources)Alkaline phosphatase ijippq23-78-8711OsqzvctkRmsdd nervous system disorders (20 sources)Polyneuropathy; Translations: [Polyneuropathy, unspecified]Onset: 569504-49-5039HmhksjuMbepj nervous system disorders (13 sources)Neuropathy of lower limb; Translations: [Unspecified mononeuropathy of unspecified lower limb]Onset: 566865-86-6600VshkujeIchts nervous system disorders (13 sources)Disorder of autonomic nervous system; Translations: [Disorder of the autonomic nervous system, unspecified]Onset: 210169-24-0792ZskszuaAesok nervous system disorders (13 sources)Peripheral nerve disease ; Translations: [Polyneuropathy, unspecified]Onset: 967929-99-5452OxkfeeuRwsvx nervous system disorders (17 sources)Bilateral carpal tunnel syndrome; Translations: [Carpal tunnel syndrome, bilateral upper limbs]Onset: 069957-30-6196ZymjrsgVykzn nervous system disorders (15 sources)Carpal tunnel syndrome of right wrist; Translations: [Carpal tunnel syndrome, right upper limb]Onset: 651168-01-7058XwuiwavVsshd nervous system disorders (20 sources)Slurred speech; Translations: [Slurred speech]37-28-3928Mkqjcpbf Other nervous system disorders (20 sources)Paresthesia of hand ; Translations: [Paresthesia of skin]03-11-2023 EpisodicOther nervous system disorders (2 sources)Paresthesia of skin; Translations: [Disturbance of skin sensation] 81-51-0881VcfpygsqSrhul nervous system disorders (5 sources)Slurred speech; Translations: [Other speech disturbance]03-13-2023 EpisodicOther non-traumatic joint disorders (13 sources)Arthropathy; Translations: [Arthropathy, unspecified]Onset: 956259-09-1836AopbsotZhfjc non-traumatic joint disorders (1 source)Pain in right shoulder; Translations: [Pain in right shoulder]Onset: 44-68-5887CbvmttjzVyxwd nutritional; endocrine; and metabolic disorders (4 sources)Obese class II; Translations: [Body mass index (BMI) 36.0-36.9, adult]ChronicOther nutritional; endocrine; and metabolic disorders (2 sources)Body mass index 40+ - severely obese; Translations: [Body mass index (BMI) 45.0-49.9, adult]ChronicOther nutritional; endocrine; and metabolic disorders (2 sources)Body mass index (BMI) 36.0-36.9, adultChronicOther nutritional; endocrine; and metabolic disorders (20 sources)Hypomagnesemia; Translations: [Hypomagnesemia]09-24-2063OsezmjhAfrmx nutritional; endocrine; and metabolic disorders (10 sources)Metabolic syndrome X; Translations: [Metabolic syndrome]Onset: 11-88-2691EnkazsjRqllb nutritional; endocrine; and metabolic disorders (2 sources)Obesity; Translations: [Other obesity due to excess calories]Onset: 16-07-7451FjkggyzTkvjf nutritional; endocrine; and metabolic disorders (6 sources)Obesity caused by energy jewnyfscf18-18-5636QmpllhtPavmi nutritional; endocrine; and metabolic disorders (9 sources)Hypomagnesemia; Translations: [Disorders of magnesium metabolism] Onset: 293103-27-1173XgfblesOsnzy nutritional; endocrine; and metabolic disorders (4 sources)Abnormal weight loss; Translations: [Abnormal weight loss]Onset: 72-50-7383WzxhvrtpYmusx nutritional; endocrine; and metabolic disorders (6 sources)Weight rfwg15-72-4135GupsrhqwYgzlp upper respiratory disease (2 sources)Nasal congestionEpisodicPulmonary heart disease (1 source)Pulmonary hypertension, unspecified; Translations: [PULMONARY HYPERTENSION UNSPECIFIED]Onset: 74-44-2150IajnqutGjqhdvbm codes; unclassified (12 sources)Obstructive sleep apnea syndrome; Translations: [Obstructive sleep apnea (adult) (pediatric)]80-54-0237KrukemcRxbkofcx codes; unclassified (7 sources)Obstructive sleep apnea (adult) (pediatric); Translations: [Obstructive sleep apnea (adult)(pediatric)]ChronicResidual codes; unclassified (10 sources)Insomnia; Translations: [Insomnia, unspecified]67-02-5715Oahqptei Residual codes; unclassified (5 sources)Insomnia, unspecified; Translations: [Insomnia, unspecified] 45-46-9639BhmixbqnHbqjpocyupd; intervertebral disc disorders; other back problems (6 sources)Other spondylosis with radiculopathy, lumbar region; Translations: [Degeneration of lumbar intervertebral disc]Onset: 30-55-1931AffskekJacvfzq (20 sources)Syncope; Translations: [Syncope and collapse]Onset: 05-14-2023 62-60-7000YxnrjcwhLjrpblimw cerebral ischemia (18 sources)Transient cerebral ischemia; Translations: [Transient cerebral ischemic attack, unspecified]Onset: 612146-49-5475ChuoyjiUusprkofbfsr (1 source)CHRN KIDNEY DISEASE STG 3 UNSP; Translations: [CHRN KIDNEY DISEASE STG 3 UNSP]Onset: 51-62-1704Lbbabtlxluzy (1 source)Other intervertebral disc degeneration, lumbar region without mention of lumbar back pain or lower extremity pain; Translations: [Other intervertebral disc degeneration, lumbar region without mentionof lumbar back pain or lower extremity pain]Onset: 74-32-0713Rxtjpjs tract infections (20 sources)Acute urinary tract infection; Translations: [Urinary tract infection, site not specified]62-42-0966LcnbfcdfWqfhc infection (20 sources)Acute viral disease; Translations: [Viral infection, unspecified] 83-88-0766Rvhvlstq Past or Other Problems Problem ClassificationProblemDateDocumented DateEpisodic/ChronicCardiac dysrhythmias (20 sources)Palpitations; Translations: [Palpitations]Onset: 08-16-2024 08-87-5755UerwmnssUsrilqdqts and other anemia (1 source)Anemia, unspecified; Translations: [Anemia, unspecified type]Onset: 37-45-0711OuyhshxsFstilktbvr and other anemia (1 source)Iron deficiency anemia, unspecified; Translations: [Iron deficiency anemia, unspecified iron deficiency anemia type]Onset: 83-52-4631Mkzhxkdq Diabetes mellitus without complication (1 source)Impaired fasting glucose; Translations: [IMPAIRED FASTING GLUCOSE] Onset: 71-27-9994DglrmpwyFbyfd aftercare (1 source)Other long term care pharmacist (current) drug therapy; Translations: [OTH JAIL CURRENT DRUG THERAPY]Onset: 07-48-3429VuxzxtjjKgwkn lower respiratory disease (4 sources)Shortness of breath; Translations: [SHORTNESS OF BREATH]Onset: 44-85-7070GguvrthtHblik nervous system disorders (13 sources)Paresthesia; Translations: [Paresthesia of skin]Onset: 03-28-2024 59-56-2720XrgohsseGxyge nervous system disorders (13 sources)Impairment of balance; Translations: [Other abnormalities of gait and mobility]Onset: 567701-28-5834KcyzelxrMtcqi non-epithelial cancer of skin (13 sources)History of malignant neoplasm of skin; Translations: [Personal history of other malignant neoplasm of skin]Onset: 264059-34-4685Euchvkhy Other screening for suspected conditions (not mental disorders or infectious disease) (6 sources)Abnormal level of blood mineral; Translations: [Abnormal level of blood mineral]Onset: 58-78-8186JmthywnjZpwvpa media and related conditions (13 sources)Bilateral tympanic membrane central perforation; Translations: [Central perforation of tympanic membrane, bilateral]Onset: EpisodicSpondylosis; intervertebral disc disorders; other back problems (1 source)Spinal stenosis, lumbar region with neurogenic claudication; Translations: [Spinal stenosis, lumbarregion with neurogenic claudication]Onset: 46-84-9203UylnupvsEdhxzapk veins of lower extremity (13 sources)Venous varices; Translations: [Asymptomatic varicose veins of unspecified lower extremity]Onset: 770875-24-1604Raitfwwt Results Test NameValueInterpretationReference RangeFacilityCBC W Auto Differential panel (Bld)on 03-87-8934Bbfdvdpej (Bld) [#/Vol]10*3/uLNormal<0.11CC[facility] on above:Order Comment: Specimen Type: BLOOD SPECIMENOrdering Facility: [facility] Address:[address], [place] [address]Performed By: #### 71209-7, 10399-0 ####[facility] LABCLIA [id number] [place], [place] [address]Fabmvjbxc/100 WBC (Bld)0.3 %NormalSelect [facility] Specialty [facility] on above:Order Comment: Specimen Type: BLOOD SPECIMENOrdering Facility: [facility] Address:[address], [place] [address]Performed By: #### 10786-8, 24171-3 ####[facility] LABCLIA [id number] [place], [place] [address]Evgajmbehibb cell count method Nom (Bld)AutoNormal [facility] on above:Order Comment: Specimen Type: BLOOD SPECIMENOrdering Facility: [facility] Address:[address] [place], [place] [address]Performed By: #### 37882-3, 25521-1 ####[facility] LABCLIA [id number] [place] [address] Eosinophils (Bld) [#/Vol]0.18 10*3/uLNormal<0.46[facility] Comment on above:Order Comment: Specimen Type: BLOOD SPECIMENOrdering Facility: [facility] Address:[address] [place] [address] Performed By: #### 55437-9, 82787-9 ####[facility] LABIA [id number] [place], [place] [address]Tjhcihaxnwt/100 WBC (Bld)3.1 %NormalSelect Medical Specialty Hospital [facility] [place] on above:Order Comment: Specimen Type: BLOOD SPECIMENOrdering Facility: [facility] Address:[address] [place], [place] [address]Performed By: #### 31883-6, 95730-7 ####[facility] LABCLIA [id number] [place], [place] [address]Daeeekenala distribution width (RBC) [Ratio]15.9 %High 11.5-15.0[facility] on above:Order Comment: Specimen Type: BLOOD SPECIMENOrdering Facility: [facility] Address:[address] [place], [place] [address]Performed By: #### 87987-6, 30582-7 ####[facility] LABIA [id number] [place], [place] [address]Bpplucihfs (Bld) [Volume fraction]32.1 %Low36.0-46.0 [facility] on above:Order Comment: Specimen Type: BLOOD SPECIMENOrdering Facility: [facility] Address:[address] [place], [place] [address]Performed By: #### 19714-5, 80255-3 ####[facility] LABCLIA [id number] [place] [address] Hemoglobin (Bld) [Mass/Vol]10.6 g/dLLow11.5-15.5CC[facility] Comment on above:Order Comment: Specimen Type: BLOOD SPECIMENOrdering Facility: [facility] Address:[address] [place] [address] Performed By: #### 83006-2, 73170-1 ####[facility] LABCLIA [id number] [place], [place] [address]Xtydhyzy granulocytes (Bld) [#/Vol]10*3/uLNormal<0.10[facility] HospitalComment on above:Order Comment: Specimen Type: BLOOD SPECIMENOrdering Facility: [facility] Address:[address] [place], [place] [address]Performed By: #### 44159- 8, 76185-7 ####[facility] LABCLIA [id number] [place], [place] [address]Oiogmymi granulocytes/100 WBC (Bld)0.3 %Normal [facility] HospitalComment on above:Order Comment: Specimen Type: BLOOD SPECIMENOrdering Facility: [facility] Address:[address] [place], [place] [address]Performed By: #### 22866-4, 27771-5 ####[facility] LABCLIA [id number] [place] [address] Lymphocytes (Bld) [#/Vol]1.39 10*3/uLNormal1.00-4.00[facility] Comment on above:Order Comment: Specimen Type: BLOOD SPECIMENOrdering Facility: [facility] Address:[address] [place] [address] Performed By: #### 35845-9, 77463-9 ####[facility] LABCLIA [id number] [place], [place] [address]Uripomdodyk/100 WBC (Bld)23.8 %NormalSelect Medical Specialty Hospital [facility] [place] on above:Order Comment: Specimen Type: BLOOD SPECIMENOrdering Facility: [facility] Address:[address] [place], [place] [address]Performed By: #### 93191-2, 89756-9 ####[facility] LABCLIA [id number] [place], [place] [address]SBM (RBC) [Entitic mass]29.2 ulBzgcza58.0-34.0[facility] on above:Order Comment: Specimen Type: BLOOD SPECIMENOrdering Facility: [facility] Address:[address] [place], [place] [address]Performed By: #### 58342-3, 08036-9 ####[facility] LABCLIA [id number] [place], [place] [address]GKIW (RBC) [Mass/Vol]33.0 g/tPWscrri33.5-36.0[facility] on above:Order Comment: Specimen Type: BLOOD SPECIMENOrdering Facility: [facility] Address:[address] [place], [place] [address]Performed By: #### 95305-8, 12208-6 ####[facility] LABCLIA [id number] [place], [place] [address]IDE (RBC) [Entitic vol]88.4 fLNormal 80.0-100.0[facility] on above:Order Comment: Specimen Type: BLOOD SPECIMENOrdering Facility: [facility] Address:[address] [place], [place] [address]Performed By: #### 49889-8, 63073-9 ####[facility] LABCLIA [id number] [place], [place] [address]Tsaeeuqqj (Bld) [#/Vol]0.35 10*3/uLNormal<0.87[facility] on above:Order Comment: Specimen Type: BLOOD SPECIMENOrdering Facility: [facility] Address:[address], [place] [address]Performed By: #### 61634-0, 28328-6 ####[facility] LABCLIA [id number] [place] [address] Monocytes/100 WBC (Bld)6.0 %NormalSelect Medical Specialty [facility] [place] on above: Order Comment: Specimen Type: BLOOD SPECIMENOrdering Facility: [facility] Address:[address] [place], [place] [address]Performed By: #### 09463- 8, 04125-6 ####[facility] LABCLIA [id number] [place], [place] [address]Xgykxtyrqhz (Bld) [#/Vol]3.89 10*3/uLNormal 1.45-7.50[facility] on above:Order Comment: Specimen Type: BLOOD SPECIMENOrdering Facility: [facility] Address:[address] [place], [place] [address]Performed By: #### 77236-9, 67387-2 ####[facility] LABCLIA [id number] [place], [place] [address]Qrrdyipvkey/100 WBC (Bld)66.5 %NormalSelect Medical Specialty [facility] [place] on above:Order Comment: Specimen Type: BLOOD SPECIMENOrdering Facility: [facility] Address:[address] [place], [place] [address]Performed By: #### 23598-7, 68446-9 ####[facility] LABIA [id number] [place], [place] [address]Rtsjtqhyy RBC (Bld) [#/Vol]10*3/uLNormal<0.01[facility] on above:Order Comment: Specimen Type: BLOOD SPECIMENOrdering Facility: [facility] Address:[address] [place], [place] [address]Performed By: #### 93990- 8, 89621-8 ####[facility] LABCLIA [id number] [place], [place] [address]Nciifditz RBC/100 WBC (Bld) [Ratio]0.0 /100 WBC NormalSelect Medical Specialty [facility] [place] on above:Order Comment: Specimen Type: BLOOD SPECIMENOrdering Facility: [facility] Address:[address] [place], [place] [address]Performed By: #### 23715-5, 67229-2 ####[facility] LABCLIA [id number] [place], [place] [address]Swtggryg mean volume (Bld) [Entitic vol]9.2 fLNormal9.0-12.7CC[facility] on above:Order Comment: Specimen Type: BLOOD SPECIMENOrdering Facility: [facility] Address:[address] [place], [place] [address]Performed By: #### 65501-4, 58146-3 ####[facility] LABCLIA [id number] [place] [address] Platelets (Bld) [#/Vol]126 10*3/cYYqg436-840MbttckzuuSelect Medical [facility]ty [facility] on above:Order Comment: Specimen Type: BLOOD SPECIMENOrdering Facility: [facility] Address:[address] [place], [place] [address]Performed By: #### 19169-1, 51168-0 ####[facility] LABCLIA [id number] [place], [place] [address]QJM (Bld) [#/Vol]3.63 10*6/uLLow3.90-5.20 [facility] on above:Order Comment: Specimen Type: BLOOD SPECIMENOrdering Facility: [facility] Address:[address] [place], [place] [address]Performed By: #### 74486-8, 77075-6 ####[facility] LABCLIA [id number] [place], [place] [address]YAA (Bld) [#/Vol]5.85 10*3/uLNormal3.70-11.00[facility] on above:Order Comment: Specimen Type: BLOOD SPECIMENOrdering Facility: [facility] Address:[address] [place], [place] [address], [place] [address]Czebtxtfw By: #### 02664-5, 58045-7 ####[facility]DR[facility] LABCLIA [id number] [place], [place] [address]BXLFTAol [id number] (SP) Office (HEMASA) NAH TEJEDA ([id number]) 1950 F Date Time Provider Department 08/07/25 10:30 AM DAKSHA BRIDGES During your visit today, we recorded the following information about you: Temperature Pulse Respiration Blood pressure 97.7 degrees 79/minute 16/minute 121/59 Weight 100.9 kg Daksha Bridges PA-C 08/07/2025 10:50 AM Signed Hematology Progress Note PATIENT NAME: Anh Tejeda CLINIC NO.: [id number] ATTENDING PHYSICIAN: Henry Walker MD DATE OF SERVICE: 08/07/2025 This note was copied from prior heme/onc encounter from 04/25/2025. The patient's medications, allergies, past medical/surgical hx, family hx, ROS, and physical exam have all been reviewed and updated as appropriate. The interval history and assessment/plan content have been modified and are specific to today's (08/07/2025) purpose for the visit. CHIEF COMPLAINT: Follow up for anemia Diagnosis: NAINA Stage 3a CKD Treatment: Venofer x 3 doses 10/2022, again in January 2024 Interval History: Anh returns for 3 month follow up. She has been very fatigued lately. She's nodding off during the day more. She does have sleep apnea and is wearing her CPAP machine religiously. She feels like overall she does get good sleep. No significant bleeding. No cravings. She just feels weak. She is on a new cream, bactroban, from her PCP for a wound on her leg that isn't healing well. Current Outpatient Medications Medication Sig vit B complex no.12/niacin,B3, (VITAMIN B COMPLEX NO.12-NIACIN ORAL) Vitamin B 12 baclofen 10 mg tablet Take 5 mg by mouth once daily. loratadine (CLARITIN) 5 mg/5 mL syrup Take 5 mg by mouth as needed for cold/allergy symptoms. amoxicillin-clavulanate potassium (AUGMENTIN) 875-125 mg per tablet pioglitazone (ACTOS) 15 mg tablet diphenhydrAMINE HCl (CHILDREN'S BENADRYL ALLERGY) 12.5 mg chewable tablet 25 mg. FARXIGA 10 mg tablet resmetirom (REZDIFFRA) 80 mg tablet once daily. allopurinol (ZYLOPRIM) 300 mg tablet 300 mg. JANUVIA 50 mg tablet Take 1 tablet by mouth every afternoon. albuterol HFA (PROVENTIL HFA, VENTOLIN HFA) 90 mcg/actuation inhaler magnesium oxide 400 mg magnesium tab Take [...] Drug use: Not Currently REVIEW OF SYSTEMS +fatigue, generalized weakness PHYSICAL EXAMINATION: BP 121/59 Pulse 79 Temp 36.5 ?C (97.7 ?F) (Temporal) Resp 16 Wt 100.9 kg (222 lb 7.1 oz) SpO2 96% BMI 40.42 kg/m? ECOG PS: 1 No [...] Date Value 04/18/2025 6.4 04/18/2025 6.2 Albumin (more content not included)...NormalBucyrus Community Hospital Comprehensive metabolic 2000 panelon 14-20-7199Cwfszny [Mass/Vol]3.9 g/dLNormal 3.9-4.9CCleveland Clinic Medina HospitalComduane l. waters hospital on above:Order Comment: Specimen Type: BLOOD SPECIMEN [facility] Address: [address] [place], [place] [address]Performed By: #### 48688-9 #### [facility] CLIA [id number] [address] [place], [place] [address]SIN [Catalytic activity/Vol]155 U/XUkjd54-335YsdiyuavzSelect Medical Specialty Hospital [facility] [place] on above:Order Comment: Specimen Type: BLOOD SPECIMEN [facility] Address: [address] [place], [place] [address]Performed By: #### 81955-7 #### [facility] CLIA [id number] [address] [place], [place] [address]ELY [Catalytic activity/Vol]12 U/LNormal7-38[facility] on above:Order Comment: Specimen Type: BLOOD SPECIMEN [facility] Address: [address] [place], [place] [address]Performed By: #### 31901-5 #### [facility] CLIA [id number] [address] [place], [place] [address]Hmcyi gap [Moles/Vol]11 mmol/LNormal8-15[facility] on above:Order Comment: Specimen Type: BLOOD SPECIMEN [facility] Address: [address] [place], [place] [address]Performed By: #### 86174-8 #### [facility] CLIA [id number] [address] [place], [place] [address]ILC [Catalytic activity/Vol]13 U/CMlitvt68-74EyijbqlnnSelect Medical Specialty Hospital - [place] on above:Order Comment: Specimen Type: BLOOD SPECIMEN [facility] Address: [address] [place], [place] [address]Performed By: #### 56500-9 #### [facility] CLIA [id number] [address] [place], [place] [address]Mwqcsbgkg [Mass/Vol]0.6 mg/dLNormal0.2-1.3CCleveland Clinic [facility] Hospital on above:Order Comment: Specimen Type: BLOOD SPECIMEN [facility] Address: [address] [place], [place] [address]Performed By: #### 27166-3 #### [facility] CLIA [id number] [address] [place] [address]Dvnoolf [Mass/Vol]8.7 mg/dLNormal8.5-10.2CCleveland Clinic [facility] Hospital on above:Order Comment: Specimen Type: BLOOD SPECIMEN [facility] Address: [address] [place], [place] [address]Performed By: #### 86681-2 #### [facility] CLIA [id number] [address] [place] [address]Mrclvtsy [Moles/Vol]102 mmol/TIpvblj36-591VimmcdycbSelect Medical Specialty Hospital [facility] [place] on above:Order Comment: Specimen Type: BLOOD SPECIMEN [facility] Address: [address] [place], [place] [address]Performed By: #### 47515-8 #### [facility] CLIA [id number] [address] [place] [address]73OD6 [Moles/Vol]27 mmol/KGffhjy88-26TyagdgewvBucyrus Community Hospital Comment on above:Order Comment: Specimen Type: BLOOD SPECIMEN [facility] Address: [address] [place], [place] [address]Performed By: #### 76152-9 #### [facility] CLIA [id number] [address] [place] [address]Fawvbfhfgn [Mass/Vol]1.33 mg/dLHigh0.58-0.96[facility] on above:Order Comment: Specimen Type: BLOOD SPECIMEN [facility] Address: [facility] [place], [place] [address]Performed By: #### 81689-5 #### [facility] CLIA [id number] [address] [place] [address] 06599hKSIzr SerPlBld CKD-EPI 533149 mL/min/1.73m???Low>=60Bucyrus Community HospitalComment on above:Order Comment: Specimen Type: BLOOD SPECIMEN [facility] Address: [address] [place] [address]Gxckjm Comment: Estimated Glomerular Filtration Rate (eGFR) is calculated using the 2020 CKD-EPI cre atinine equation. This equation utilizes serum creatinine, sex, and age as parameters. The creatinine assay has traceable calibration to isotope dilution- mass spectrometry. Refer to KDIGO guidelines for clinical interpretation. In patients with unstable renal function, e.g. those with acute kidney injury, the eGFR may not accurately reflect actual GFR.Performed By: #### 60709-2 #### [facility] CLIA [id number] [address] [place] [address]Azvorok [Mass/Vol]208 mg/kJBsmj59-39DgpdvxwyzBucyrus Community Hospital Comment on above:Order Comment: Specimen Type: BLOOD SPECIMEN [facility] Address: [address] [place] [address]Ztylcw Comment: The [place] Diabetes Association (ADA) provides guidance for cutoff [...] Standards of Medical Care in Diabetes 2016, [place] [employer]. Diabetes Care. 2016.39(Suppl 1).Performed By: #### 68674-2 #### [facility] CLIA [id number] [address] [place] [address]Aactyrigh [Moles/Vol]4.4 mmol/LNormal3.7-5.1CCleveland Clinic [facility] Hospital on above:Order Comment: Specimen Type: BLOOD SPECIMEN [facility] Address: [address] [place], [place] [address]Performed By: #### 61763-8 #### [facility] CLIA [id number] [address] [place], [place] [address]Gddwfcf [Mass/Vol]6.1 g/dLLow6.3-8.0[facility] Comment on above:Order Comment: Specimen Type: BLOOD SPECIMEN [facility] Address: [address] [place], [place] [address]Performed By: #### 73196-9 #### [facility] CLIA [id number] [address] [place] [address] 15[address]Jcykhp [Moles/Vol]140 mmol/DDcasmq086-062TidsqmcdiBucyrus Community HospitalComment on above:Order Comment: Specimen Type: BLOOD SPECIMEN [facility] Address: [address] [place], [place] [address]Performed By: #### 09262-0 #### [facility] CLIA [id number] [address] [place] [address] 14582Hcwi nitrogen [Mass/Vol]34 mg/dLHigh7-21Bu[facility]rus Community HospitalComment on above:Order Comment: Specimen Type: BLOOD SPECIMEN [facility] Address: [address] [place], [place] [address]Performed By: #### 50518-3 #### [facility] CLIA [id number] [address] [place] [address] 416[address]UBO SerPl-aCncon 29-84-4279Ibzqjvtxcujmfv (EPO) Qn30.0 mIU/mL High2.6-18.5CCleveland Clinic Medina HospitalComment on above:Order Comment: Specimen Type: BLOOD SPECIMENOrdering Facility: [facility] Address:[address] [place], [place] [address]Performed By: #### 23833-1 ####[facility] LABCLIA [id number] [facility] [id number] WILLIS STREETFerritin SerPl-mCncon 65-51-3571Amxarpoh [Mass/Vol]353.0 ng/uYYrfe34.7-205.1CC[facility] Clinic [facility] on above:Order Comment: Specimen Type: BLOOD SPECIMEN [facility] Address: [address] [place], [place] [address]Performed By: #### 63124-3, 6-4 #### [facility] CLIA [id number] [address] [place] [address] STATES OF AMERICAFolate SerPl-mCncon 38-63-3101Yxouqs [Mass/Vol]ng/mLNormal>4.7CCleveland Clinic [facility] Hospital on above:Order Comment: Specimen Type: BLOOD SPECIMEN [facility] Address: [address] [place], [place] [address]Result Comment: A result of > 20 ng/mL is not necessarily indicative of a pathologic or treatable condition: it reflects a limitation of the test methodology. Assay reference range: 4.8 to 24.2 ng/mL. Suitable for detection of folate deficiency. Reference: Folate III (Folate III) [package insert V 1.0 Vietnamese]. [facility], [place], [place]: September 2015.Performed By: #### 13272-9, 2275-4 #### [facility] CLIA [id number] [address] [place] [address] STATES OF AMERICAIMMUNOFIXATION SCREEN, SERUM on 60-86-8115HII RESULTNo M protein is identified.NormalNo M protein is identified.[facility] on above:Order Comment: Specimen Type: BLOOD SPECIMEN [facility] Address: [address] [place], [place] [address]Performed By: #### 48959-8, 2275-4 #### [facility] CLIA [id number] [address] [place] [address] STATES OF AMERICASTAFF REVIEW (MPA)Reviewed by Nimco Meredith M.D.[facility] on above:Order Comment: Specimen Type: BLOOD SPECIMEN [facility] Address: [address] [place], [place] [address]Performed By: #### 09727-0, 6-4 #### [facility] CLIA [id number] [address] [place] [address] [place] OF AMERICAIMMUNOGLOBULINS,IGG,IGA,IGM on 31-67-8162LsT [Mass/Vol]45 mg/oIFzn83-564PveejzirlSelect Medical Specialty Hospital [facility] on above:Order Comment: Specimen Type: BLOOD SPECIMENOrdering Facility: [facility] Address:[address] [place], [place] [address]Performed By: #### SERIMM ####[facility] LABCLIA [id number] [place] [address] [place] OF AMERICAIgG [Mass/Vol]657 mg/dL Wgj322-0944QpcpetgzaSelect Medical Specialty [facility] on above:Order Comment: Specimen Type: BLOOD SPECIMENOrdering Facility: [facility] Address:[address] [place], [place] [address]Performed By: #### SERIMM ####[facility] LABCLIA [id number] [place] [address] [place] OF AMERICAIgM [Mass/Vol]33 mg/bXWyk01-824VeqelphjySelect Medical Specialty [facility] on above:Order Comment: Specimen Type: BLOOD SPECIMENOrdering Facility: [facility] Address:[address] [place], [place] [address]Performed By: #### SERIMM ####[facility] LABCLIA [id number] [place] [address] [place] RASHMI [employer] binding capacity panelon 75-84-6155Ycvu [Mass/Vol]67 ug/dLNormal 41-186[facility] on above:Order Comment: Specimen Type: BLOOD SPECIMEN [facility] Address: [address] [place], [place] [address]Performed By: #### 32567-5, 2275-4 #### [facility] CLIA [id number] [address] [place] [address] [place] OF AMERICAIron binding capacity [Mass/Vol]295 ug/jOQotrje233-039MnfmzteddSelect Medical Specialty Hospital [facility] on above:Order Comment: Specimen Type: BLOOD SPECIMEN [facility] Address: [address] [place], [place] [address]Performed By: #### 70794-7, 2276-4 #### [facility] CLIA [id number] [address] [place] [address] [place] OF AMERICAIron/TIBC [Molar ratio]22.7 %Xegauj00.0-57.0[facility] on above:Order Comment: Specimen Type: BLOOD SPECIMEN [facility] Address: [address] [place], [place] [address]Performed By: #### 79490-5, 2275-4 #### [facility] CLIA [id number] [address] [place] [address] [place] OF AMERICAKAPPA/SAMANIEGO,FREE,SERon 14-32-6954Izgbsbbfdtrrek light chains.kappa.free (S) [Mass/Vol]28.9 mg/LHigh 3.3-19.4CC[facility] on above:Order Comment: Specimen Type: BLOOD SPECIMENOrdering Facility: [facility] Address:[address] [place], [place] [address]Result Comment: Rarely, increased serum free light chains levels may not be detected or accurately quantified due to prozone phenomenon or in high viscosity samples using this immunoturbidimetric assay. Correlation with other laboratory results and clinical findings is recommended. The Cherry Free Light Chain was performed using the Binding Site Optilite immunoturbidimetric method. Result obtained with different assay methods or kits cannot be used interchangeably.Performed By: #### KLFRS ####[facility] LABCLIA [id number] [place] [address] [place] OF AMERICAImmunoglobulin light chains.kappa/Immunoglobulin light chains.lambda (S) [Mass ratio]1.55Avbiva7.26-1.65[facility] Comment on above:Order Comment: Specimen Type: BLOOD SPECIMENOrdering Facility: [facility] Address:[address] [place] [address] Performed By: #### KLFRS ####[facility] LABCLIA [id number] [place] [address] [place] OF AMERICAImmunoglobulin light chains.lambda.free [Mass/Vol]27.7 mg/LHigh5.7-26.3CC[facility] on above:Order Comment: Specimen Type: BLOOD SPECIMENOrdering Facility: [facility] Address:[address] [place], [place] [address]Result Comment: Rarely, increased serum free light chains levels may not be detected or accurately quantified due to prozone phenomenon or in high viscosity samples using this immunoturbidimetric assay. Correlation with other laboratory results and clinical findings is recommended. The Lambda Free Light Chain was performed using the Binding Site Optilite immunoturbidimetric method. Result obtained with different assay methods or kits cannot be used interchangeably.Performed By: #### KLFRS ####[facility] LABIA [id number] [place] [address] [place] OF AMERICAPROTEIN ELECTROPHORESIS SERUM (P)on 19-98-4710Hvszzdm [Mass/Vol]3.48 g/dLNormal3.43-5.41[facility] HospitalComment on above: Order Comment: Specimen Type: BLOOD SPECIMENOrdering Facility: [facility] Address:[address] [place], [place] [address]Performed By: #### [id number] ####[facility] LABIA [id number] [place] [id number] [place] OF AMERICAAlpha 1 globulin Elph [Mass/Vol]0.35 g/dLNormal0.18-0.43[facility] on above: Order Comment: Specimen Type: BLOOD SPECIMENOrdering Facility: [facility] Address:[address] [place], [place] [address]Performed By: #### [id number] ####[facility] LABCLIA [id number] [place] [address] [place] OF AMERICAAlpha 2 globulin Elph [Mass/Vol]0.80 g/dLNormal0.42-0.98[facility] on above: Order Comment: Specimen Type: BLOOD SPECIMENOrdering Facility: [facility] Address:[address] [place], [place] [address]Performed By: #### [id number] ####[facility] LABCLIA [id number] [address] STATES OF AMERICABeta globulin Elph [Mass/Vol]0.56 g/dLLow0.61-1.17[facility] on above:Order Comment: Specimen Type: BLOOD SPECIMENOrdering Facility: [facility] Address:[address] [place], [place] [address]Performed By: #### [id number] ####[facility] LABIA [id number] [address] STATES [facility] STATE HOSPITALGamma globulin Elph [Mass/Vol]0.50 g/dLLow0.53-1.51[facility] on above:Order Comment: Specimen Type: BLOOD SPECIMENOrdering Facility: [facility] Address:[address] [place], [place] [address]Performed By: #### [id number] ####[facility] LABCLIA [id number] [address] STATES OF AMERICAINTERPRETATION COMMENT FOR PROTEIN ELECTROPHORESISHypogammaglobulinemia is present, which can be seen in the setting of monoclonal gammopathy. If clinically indicated, monoclonal protein analysis and serum free light chain analysis are suggested to evaluate further for monoclonal gammopathy.NormalSelect Medical Specialty [facility] on above:Order Comment: Specimen Type: BLOOD SPECIMENOrdering Facility: [facility] Address:[address] [place], [place] [address]Performed By: #### [id number] ####[facility] LABCLIA [id number] [place] [address] [place] OF AMERICAM-PROTEIN LOCATION NormalSelect Medical Specialty [facility] on above:Order Comment: Specimen Type: BLOOD SPECIMENOrdering Facility: [facility] Address:[address] [place], [place] [address]Result Comment: Not Applicable.Performed By: #### [id number] ####[facility] LABIA [id number] [place] [address] [place] OF [facility] COUNTY HOSPITALProtein Fractions [Interp]No definitive M protein is identified on protein electrophoresis.Normal No definitive M protein is identified on protein electrophoresis.[facility] on above:Order Comment: Specimen Type: BLOOD SPECIMENOrdering Facility: [facility] Address:[address] [place], [place] [address]Performed By: #### [id number] ####[facility] LABIA [id number] [place] [address] [place] AMERICAProtein.monoclonal Elph [Mass/Vol]0.00 g/dLNormal<=0.00[facility] on above:Order Comment: Specimen Type: BLOOD SPECIMENOrdering Facility: [facility] Address:[address] [place], [place] [address]Performed By: #### [id number] ####[facility] LABIA [id number] [place] [address] [place] RASHMI SPE STAFF REVIEWReviewed by Nimco Meredith M.D.[facility] Comment on above:Order Comment: Specimen Type: BLOOD SPECIMENOrdering Facility: [facility] Address:[address] [place] [address] Performed By: #### [id number] ####[facility] LABIA [id number] [place] [id number] [place] RASHMI Prot SerPl-mCncon 26-99-7316Ntltsox [Mass/Vol]5.7 g/dLLow6.3-8.0[facility] on above:Order Comment: Specimen Type: BLOOD SPECIMEN [facility] Address: [address] [place], [place] [address]Performed By: #### 49777-0, 4 #### [facility] CLIA [id number] [address] [place] [address] [place] OF AMERICARetics #on 08-07-2025 Reticulocytes (Bld) [#/Vol]0.88496 10*3/uLHigh0.018-0.100[facility] on above:Order Comment: Specimen Type: BLOOD SPECIMENOrdering Facility: [facility] Address:[address] [place], [place] [address]Performed By: #### 95517-6, 06049-9 ####[facility] LABCLIA [id number] [place], [place] [address]Mdmjhdajflere (Bld) [#/Vol]on 31-11-2081Yriifwgcmccrv/100 RBC (Bld)3.1 %High0.4-2.0[facility] on above:Order Comment: Specimen Type: BLOOD SPECIMENOrdering Facility: [facility] Address:[address] [place], [place] [address]Performed By: #### 10590-6, 54340-8 ####[facility] LABCLIA [id number] [place], [place] [address]Uvn B12 SerPl-mCncon 53-06-2268Kldaoebdv (Vitamin B12) [Mass/Vol]903 pg/aOApkona909-1395ZlznceobeCleveland Clinic Marymount Hospital on above:Order Comment: Specimen Type: BLOOD SPECIMEN [facility] Address: [address] [place], [place] [address]Performed By: #### 16241-8, 4 #### [facility] CLIA [id number] [address] [place] [address] [place] OF AMERICAX-ray reportOrdered By: Sharad Robles on 50-33-2269Ygugu reportHENRY COUNTY HOSPITAL Main [address] [address] XRay Report Signed Patient: Anh Tejeda MR#: [id number] : 1950 Acct:[id number] Age/Sex: 74 / F ADM Date: 5 Loc: XD Room: Type: REG CLI Attending Dr: Vinay Matta DO Copies to: Vinay Matta DO~ Ordering Provider: Vinay Matta DO Date of Service: 07/19/25 XR/XR knee standing BI: SHOULDER & KNEE PAIN, DJD 2 views both knee plain film standing position COMPARISON: 04/22/2022 HISTORY: Bilateral knee pain ACUTE FINDINGS: No acute findings DEGENERATIVE CHANGE: Marked narrowing of the lateral compartment of the right knee. Moderate narrowing of the medial compartments greater on the right mild left lateral compartment degeneration extensive left and moderate right patellofemoral degeneration SOFT TISSUE FINDINGS: Unremarkable JOINT EFFUSION: None POSTOP CHANGES: None BONE MINERALIZATION: Adequate XR/XR knee standing BI IMPRESSION: Extensive bilateral knee degeneration Impression dictated by: Sharad Robles M.D. 07/19/2025 10:41 PM Dictation Location: [place] [address] Transcribed By: [facility] 07/19/252240 Dictated By: Sharad Robles DO 07/19/252239 Signed By: 07/19/252240 [facility] Medical Centertudy reportHENRY COUNTY HOSPITAL Main [address] [address] XRay Report Signed Patient: Anh Tejeda MR#: [id number] : 1950 Acct:[id number] Age/Sex: 74 / F ADM Date: 5 Loc: XD Room: Type: REG CLI Attending Dr: Vinay Matta DO Copies to: Vinay Matta DO~ Ordering Provider: Vinay Matta DO Date of Service: 07/19/25 XR/XR shoulder BI min 2V: SHOULDER & KNEE PAIN, DJD 3 views both shoulder plain film HISTORY: Bilateral shoulder pain COMPARISON: None ACUTE FINDINGS: None DEGENERATIVE CHANGE: Mild bilateral shoulder degeneration SOFT TISSUE FINDINGS: Unremarkable JOINT EFFUSION: None POSTOP CHANGES: None BONY MINERALIZATION: Adequate XR/XR shoulder BI min 2V IMPRESSION: Mild bilateral shoulder degeneration Impression dictated by: Sharad Robles M.D. 07/19/2025 10:39 PM Dictation Location: [facility] Transcribed By: MT 07/19/252238 Dictated By: Sharad Robles DO 07/19/252238 Signed By: 07/19/252238 [facility] CenterXR knee standing BIon 99-98-7460WP knee standing [facility] [place] [address] XRay Report Signed Patient: Anh Tejeda MR#: [id number] : 1950 Acct:[id number] Age/Sex: 74 / F ADM Date: 07/19/25 Loc: XD Room: Type: [facility] Attending Dr: Vinay Matta DO Copies to: Vinay Matta DO Ordering Provider: Vinay Matta DO Date of Service: 07/19/25 XR/XR knee standing BI: SHOULDER KNEE PAIN, DJD 2 views both knee plain film standing position COMPARISON: 04/22/2022 HISTORY: Bilateral knee pain ACUTE FINDINGS: No acute findings DEGENERATIVE CHANGE: Marked narrowing of the lateral compartment of the right knee. Moderate narrowing of the medial compartments greater on the right mild left lateral compartment degeneration extensive left and moderate right patellofemoral degeneration SOFT TISSUE FINDINGS: Unremarkable JOINT EFFUSION: None POSTOP CHANGES: None BONE MINERALIZATION: Adequate XR/XR knee standing BI IMPRESSION: Extensive bilateral knee degeneration Impression dictated by: Sharad Robles M.D. 07/19/2025 10:41 PM Dictation Location: [facility] Transcribed By: MT 07/19/252240 Dictated By: Sharad Robles DO 07/19/252239 Signed By: 07/19/252240[facility] Physician GroupXR shoulder BI min 2Von 89-75-0001ZZ shoulder BI min 2V[facility] [place] [address] XRay Report Signed Patient: Anh Tejeda MR#: [id number] : 1950 Acct:[id number] Age/Sex: 74 / F ADM Date: 07/19/25 Loc: XD Room: Type: [facility] Attending Dr: iVnay Matta DO Copies to: Vinay Matta DO Ordering Provider: Vinay Matta DO Date of Service: 07/19/25 XR/XR shoulder BI min 2V: SHOULDER KNEE PAIN, DJD 3 views both shoulder plain film HISTORY: Bilateral shoulder pain COMPARISON: None ACUTE FINDINGS: None DEGENERATIVE CHANGE: Mild bilateral shoulder degeneration SOFT TISSUE FINDINGS: Unremarkable JOINT EFFUSION: None POSTOP CHANGES: None BONY MINERALIZATION: Adequate XR/XR shoulder BI min 2V IMPRESSION: Mild bilateral shoulder degeneration Impression dictated by: Sharad Robles M.D. 07/19/2025 10:39 PM Dictation Location: [facility]--20 Transcribed By: [facility] 07/19/252238 Dictated By: Sharad Robles DO 07/19/252238 Signed By: 07/19/[address] [place] [address] Physician GroupAmbulatory Visit Summaryon 62-11-4958Wcdbbtudhf Visit SummaryAmbulatory Visit Summary ANH TEJEDA :1950 Visit Date:07/11/2025 Ambulatory Visit Instructions Your Diagnosis ALFONSO (nonalcoholic steatohepatitis) Liver fibrosis Anemia Weight loss Chronic GERD Metabolic syndrome Your Care Team [...] mg Cap) glimepiride (glimepiride 2 mg Tab) hydrochlorothiazide-lisinopril (hydrochlorothiazide-lisinopril 12.5 mg-20 mg Tab) loratadine (Claritin) omeprazole (omeprazole 20 mg Cap-DR) pioglitazone (pioglitazone 15 mg Tab) resmetirom (Rezdiffra 80 mg oral tablet) ropinirole (ropinirole 0.5 mg Tab) sitagliptin (Januvia 50 mg Tab) Procedures Performed Carpal tunnel (02/29/2024), Colonoscopy (06/12/2022), Esophagogastroduodenoscopy (06/12/2022), Scarmanagement. Discharge Vitals Heart Rate (Peripheral) 73 Respiratory Rate 16 Blood Pressure 133/72 Height 63 in Height 160 cm Weight 222.226 lb Weight 100.8 kg BMI 39.38 What to do next Scheduled Follow-Up Appointments Thursday2025 10:45 AM EST With: Shanel DONG, Verónica Finch Where: [facility] [address] [place] [address] [place] [address]- You Need to Complete the Following Comprehensive Metabolic Panel, Blood, Routine collect, *Est. 01/11/26 +/- 28 day(s), Order for future visit, Lab Collect, ALFONSO (nonalcoholic steatohepatitis) Liver fibrosis, Print Label By Order Location Medications What How Much When Instructions Unchanged allopurinol (allopurinol 100 mg Tab) 1 Tablets By Mouth 2 times a day Contact prescribingphysician if questions or concerns Unchanged ascorbic acid (ascorbic acid 500 mg Tab) 1 Tablets By Mouth Every day Contact prescribingphysician if questions or concerns Unchanged aspirin (aspirin [...] prescribing physician if questions or concerns Unchanged hydrochlorothiazide-lisinopril (hydrochlorothiazide-lisinopril 12.5 mg-20 mg Tab) 1 Tablets By [...] rectal polyps Hyperlipidemia Hyperlipidemia Itching Liver fibrosis (more content not included)...[facility] Office/Clinic Noteon 61-54-5479Jcbratvnzkxsvpdf Office/Clinic Note Gastroenterology Office/Clinic Note Chief Complaint f/u fibro HPI Staff This is a 74 year old female who presents today for a follow up to Fibroscan. -Still taking Rezdiffra- yes Last office visit w/ Dr Ugarte 03/30/25 History of Present Illness PT is doing well gained few pounds still on Rezdiffra still drinks 1-2 cups of coffee Assessment/Plan 1. Liver fibrosis (K74.00: Hepatic fibrosis, unspecified) 2. Weight loss (R63.4: Abnormal weight loss) 3. Anemia (D64.9: Anemia, unspecified) 4. Chronic GERD (K21.9: Gastro-esophageal reflux disease without esophagitis) 5. Metabolic syndrome (E88.810: Metabolic syndrome) Continue Paulino Repeat FibroScan to assess degree of fibrosis Patient might benefit from anti-GLP 1 if she continues to have F3 fibrosis Advised to continue to drink 2 to 3 cups of medium roast coffee every day Patient will benefit from losing 10 to 15% of current weight and eat healthy FibroScan 06/08/25- Cap 272 E 13.2 F3 S2 FibroScan 05/04/23: CAP 260 E 11.5 F3 Moderate steatosis Laboratory Results CBC CMP [...] 84.5 fL (03/27/25) Chloride: 104 mmol/L (03/27/25) [place] Absolute: 0.3 E9/L (03/27/25) CO2: 28 mmol/L (03/27/25) [place] Auto: 6.4 % (03/27/25) Creatinine: 1.2 mg/dL [...] documentation with the following additions/exceptions : PT with weight fluctuations no GI symptoms drinking coffee 1-2 times a day Review of Systems PHQ Score Initial Depression Screen Score: 0 SCORE All systems reviewed, negative except as mentioned above Physical Exam Vitals & Measurements HR: 73(Peripheral) RR: 16 BP: 133/72 HT: 63 in HT: 160 cm WT: 222.226 lb WT: 100.8 kg BMI: 39.38 General: alert, no acute distress HEENT: atraumatic normocephalic Cardiovascular: regular rate and rhythm, normal peripheral perfusion Respiratory: Lungs CTA, respirations non labored Extremities: no deformity, no trauma Abdomen: Benign, soft, nontender nondistended Assessment/Plan 1. ALFONSO (nonalcoholic steatohepatitis) (K75.81: Nonalcoholic steatohepatitis (ALFONSO)) Ordered: Current tobacco non-user 1036F Most recent diastolic blood pressure <80 mm Hg 3078F Most recent systolic blood pressure >= 140 mm Hg 3077F 2. Liver fibrosis (K74.00: Hepatic fibrosis, unspecified) Ordered: Current tobacco non-user 1036F Most recent diastolic blood pressure <80 mm Hg 3078F Most recent systolic blood pressure >= 140 mm Hg 3077F 3. Anemia (D64.9: Anemia, unspecified) Ordered: Current tobacco non-user 1036F Most recent diastolic blood pressure <80 mm Hg 3078F Most recent systolic blood pressure >= 140 mm Hg 3077F 4. Weight loss (R63.4: Abnormal weight loss) Ordered: Current tobacco non-user 1036F Most recent diastolic blood pressure <80 mm Hg 3078F Most recent systolic blood pressure >= 140 mm Hg 3077F 5. Chronic GERD (K21.9: Gastro-esophageal reflux disease without esophagitis) Ordered: Curr (more content not included)...[facility] HospitalComment on above:Result Comment: Electronically Signed By: Shanel DONG, Verónica Finch\.br\Date and Time Signed: 07/11/2512:47 EDTA1C with Estimated Average Gluon 06-26-2025 Glucose [Mass/Vol]157 mg/dLNoAtrium Health [facility] Physician GroupComment on above: Result Comment: PERFORMED BY: [place] [address] PATHOLOGIST [employer] PROGRAM ASSOCIATE KARTHIK CHICAS M.D.Performed By: #### A1C WTH eA, LIPID #### [facility] [address] [place] [address] USAAlanine aminotransferase [Enzymatic activity/volume] in Serum or PlasmaOrdered By: Vinay Bunting on 66-98-1529COQ [Catalytic activity/Vol]11 U/LNormal7-52[facility] Medical CenterComment on above: Performed By: #### MG, CMP, CBC, LIPID #### [facility] [address] [place] [address] USAAlbumin [Mass/volume] in Serum or Plasma by Bromocresol green (BCG) dye binding methoOrdered By: Vinay Bunting on 46-45-1334Ywkrvyb BCG dye [Mass/Vol]3.8 g/dL3.5-5.7FTrinity Health System East CampusAlkaline phosphatase [Enzymatic activity/volume] in Serum or PlasmaOrdered By: Vinay Bunting on 50-83-2605WVW [Catalytic activity/Vol]132 U/QDloj15-052JkdxieoiuPremier Health Atrium Medical CenterComment on above:Performed By: #### MG, CMP, CBC, LIPID #### [facility] [address] [place] [address] USAAppearance of UrineOrdered By: Marilyn Stewart on 06-26-2025 Appearance (U)ClearNormalClearPremier Health Atrium Medical CenterComment on above: Order Comment: A1C IS NOT DUE UNTIL OCTOBER.Performed By: #### MG, CMP, CBC, LIPID #### [facility] [address] [place] [address] USAAspartate aminotransferase [Enzymatic activity/volume] in Serum or PlasmaOrdered By: Vinay Bunting on 20-55-7115XLS [Catalytic activity/Vol]12 U/UPnm28-40JsjiokwdwPremier Health Atrium Medical CenterComment on above: Performed By: #### MG, CMP, CBC, LIPID #### [facility] [address] [place] [address] USABacteria [Presence] in Urine by AutomatedOrdered By: Marilyn Stewart on 93-22-0429Gnafumci Auto Ql (U)None seen [HPF]None SeenPremier Health Atrium Medical CenterBilirubin Test strip Ql (U)Ordered By: Marilyn Bulldir on 48-69-6821Dqgetfsjx Ql (U)NegativeNegativePremier Health Atrium Medical Center Bilirubin.total [Mass/volume] in Serum or PlasmaOrdered By: Vinay Bunting on 67-02-8405Cmcrbdtnd [Mass/Vol]0.7 mg/dLNormal0.3-1.0[facility] Medical CenterComment on above:Performed By: #### MG, CMP, CBC, LIPID #### [facility] [address] [place] [address] USABlood estimated average glucose determination by estimation from glycated hemoglobinOrdered By: Vinay Bunting on 06-26-2025 Average glucose Estimated from glycated hemoglobin (Bld) [Mass/Vol]157 mg/dL [facility] Medical CenterCalcium [Mass/volume] in Serum or PlasmaOrdered By: Vinay Bunting on 84-41-7980Shjfkyi [Mass/Vol]8.9 mg/dLNormal8.6-10.3 [facility] Medical CenterComment on above:Performed By: #### MG, CMP, CBC, LIPID #### [facility] [address] [place] [address] USACarbon dioxide, total [Moles/volume] in Serum or Plasma Ordered By: Vinay Bunting on 24-64-3566GF0 [Moles/Vol]32.4 mmol/LHigh21.0-31.0 [facility] Medical CenterComment on above:Performed By: #### MG, CMP, CBC, LIPID #### [facility] [address] [place] [id number] USAChloride [Moles/volume] in Serum or PlasmaOrdered By: Vinay Bunting on 80-54-4576Hbofgezt [Moles/Vol]103 mmol/KGrdjpp96-690UqosxsakhPremier Health Atrium Medical CenterComment on above:Performed By: #### MG, CMP, CBC, LIPID #### [facility] [address] [place] [address] USACholesterol [Mass/volume] in Serum or PlasmaOrdered By: Vinay Matta on 76-99-2758Rhdsplwecxk [Mass/Vol]102 mg/mCLow603-678IvmbumptjPremier Health Atrium Medical CenterComment on above:Chol less than 200 mg/dl low riskChol 201-239 mg/dl borderline riskChol 240 mg/dl and greater high riskResult Comment: Chol less than 200 mg/dl low risk Chol 201-239 mg/dl borderline risk Chol 240 mg/dl and greater high riskPerformed By: #### A1C WTH eA, LIPID #### [facility] [address] [place] [address] USACholesterol in HDL [Mass/volume] in Serum or PlasmaOrdered By: Vinay Matta on 69-47-0706Vzteeypwfyt in HDL [Mass/Vol]37 mg/dLNormal 23-92Prem[facility]rium Medical CenterComment on above:HDL CHOL ATP-III CLASSIFICATION Cardiovascular RiskHDL > or equal to 60 mg/dL LOWHDL < 40 mg/dL HIGHResult Comment: HDL CHOL ATP-III CLASSIFICATION Cardiovascular Risk HDL > or equal to 60 mg/dL LOW HDL < 40 mg/dL HIGHPerformed By: #### A1C WTH eA, LIPID #### [facility] [address] [place] [address] USACholesterol in LDL Calc [Mass/Vol]Ordered By: Vinay Matta on 31-41-7131Hvhnzgwcxsp in LDL [Mass/Vol]43 mg/dL0-100[facility]rium Medical CenterComment on above:LDL ATP III CLASSIFICATIONLDL less than 100 mg/dL OptimalLDL 100-129 mg/dL Near or above buojpmpKKW953-040 mg/dL Borderline highLDL 160-189 mg/dL HighLDL greater than 189 mg/dL Very high Cholesterol in VLDL Calc [Mass/Vol]Ordered By: Vinay Matta on 06-26-2025 Cholesterol in VLDL [Mass/Vol]22 mg/dLPremier Health Atrium Medical CenterColor of Urine by AutoOrdered By: Marilyn Stewart on 93-82-2384Tzpva (U)Light-yellowNormal [facility] HospitalComment on above:Order Comment: A1C IS NOT DUE UNTIL OCTOBER.Performed By: #### MG, CMP, CBC, LIPID #### [facility] [address] [place] [address] USAComprehensive Metabolic Panelon 69-18-7718Jbfveva [Mass/Vol]3.8 g/dLNormal3.5-5.7The Pending [facility] To [facility] Physician GroupComment on above: Performed By: #### MG, CMP, CBC, LIPID #### [facility] [address] [place] [address] USAGFR/1.73 sq M.predicted MDRD (S/P/Bld) [Vol rate/Area] 41.095 mL/min/{1.73_m2}NormalThe Pending Sale To [facility] Physician GroupComment on above: Performed By: #### MG, CMP, CBC, LIPID #### [facility] [address] [place] [address] USACreatinine [Mass/volume] in Serum or PlasmaOrdered By: Vinay Matta on 11-98-4232Hvrrerequw [Mass/Vol]1.34 mg/dLHigh0.60-1.20 [facility] Medical CenterComment on above:Performed By: #### MG, CMP, CBC, LIPID #### [place] [address] USACreatinine [Mass/volume] in UrineOrdered By: Marilyn Stewart on 20-20-3581Qgcppspwet (U) [Mass/Vol]63.00 mg/dLPremier Health Atrium Medical CenterComment on above:No reference range establishedDipstick and Microscopicon 87-16-3337Jldygsih,UrineNone SeenNormalNone SeenThe Pending Sale To [facility] Group Comment on above:Order Comment: A1C IS NOT DUE UNTIL OCTOBER.Performed By: #### MG, CMP, CBC, LIPID #### [place] [id number] USABilirubin,UrineNegativeNormalNegativeThe Pending Sale To [facility] Physician GroupComment on above:Order Comment: A1C IS NOT DUE UNTIL OCTOBER. Performed By: #### MG, CMP, CBC, LIPID #### [facility] [address] [place] [address] USAGlucose Ql (U)NormalNormalNormalThe Pending Sale To [facility] Physician GroupComment on above:Order Comment: A1C IS NOT DUE UNTIL OCTOBER.Performed By: #### MG, CMP, CBC, LIPID #### [facility] [address] [place] [address] USAHyaline Casts,UrineNoneNormal0-8The Pending Sale To [facility] Physician GroupComment on above:Order Comment: A1C IS NOT DUE UNTIL OCTOBER.Performed By: #### MG, CMP, CBC, LIPID #### [facility] [address] [place] [address] USAMucus,UrineRareNormalPhysicians Regional Medical [facility] Col[facility] Boulevard Physician GroupComment on above:Order Comment: A1C IS NOT DUE UNTIL OCTOBER.Result Comment: PERFORMED BY: [place] [address] PATHOLOGIST LEADER[employer]IP PROGRAM ASSOCIATE KARTHIK CHICAS M.D.Performed By: #### MG, CMP, CBC, LIPID #### [facility] [address] [place] [address] USANitrite,UrineNegativeNormalNegativePhysicians [facility] Boulevard Physician GroupComment on above:Order Comment: A1C IS NOT DUE UNTIL OCTOBER.Performed By: #### MG, CMP, CBC, LIPID #### [facility] [address] [place] [address] USAOccult Blood,UrineNegativeNormalNegativePhysicians [facility] Physician GroupComment on above:Order Comment: A1C IS NOT DUE UNTIL OCTOBER. Performed By: #### MG, CMP, CBC, LIPID #### [facility] [address] [place] [address] USAProtein,UrineNegativeNormalNegativeThe Pending Sale To [facility] Physician GroupComment on above:Order Comment: A1C IS NOT DUE UNTIL OCTOBER.Performed By: #### MG, CMP, CBC, LIPID #### [facility] [address] [place] [address] USARBC,Svdnf6-1Dnprus0-3New Pending Sale To [facility] Physician GroupComment on above:Order Comment: A1C IS NOT DUE UNTIL OCTOBER.Performed By: #### MG, CMP, CBC, LIPID #### [facility] [address] [place] [address] USASpecificy [place],Urine1.410Xrhino3.001-1.030The Pending Sale To [facility] Physician GroupComment on above:Order Comment: A1C IS NOT DUE UNTIL OCTOBER. Performed By: #### MG, CMP, CBC, LIPID #### [facility] [address] [place] [address] USASquamous Epithelial Cell,Mberf5-5Foefpt4-9Eyw Pending [facility] To [facility] Physician GroupComment on above:Order Comment: A1C IS NOT DUE UNTIL OCTOBER. Performed By: #### MG, CMP, CBC, LIPID #### [facility] [address] [place] [address] USAUrobilinogen,UrineNormalNormalNormalThe Pending Sale To [facility] Physician GroupComment on above:Order Comment: A1C IS NOT DUE UNTIL OCTOBER. Performed By: #### MG, CMP, CBC, LIPID #### [facility] [address] [place] [address] USAWBC,Gbyil1-1Vouvwn5-6Cif Pending [facility] To [facility] Physician GroupComment on above:Order Comment: A1C IS NOT DUE UNTIL OCTOBER.Performed By: #### MG, CMP, CBC, LIPID #### [facility] [address] [place] [address] USAEpithelial cells.squamous [#/area] in Urine sediment by Automated countOrdered By: Marilyn Smithr on 94-42-8177Kcyjxxvciq cells.squamous Auto (Urine sed) [#/Area]5-9 [HPF]High0-2FTrinity Health System East Campus Erythrocyte distribution width [Ratio] by Automated countOrdered By: Marilyn Terry on 78-03-3734Wxrcktkyjmv distribution width (RBC) [Ratio]16.6 %High11.9-15.3 [facility] Medical CenterComment on above:Performed By: #### MG, CMP, CBC, LIPID #### [facility] [address] [place] [address] USAErythrocytes [#/area] in Urine sediment by Automated count Ordered By: Marilyn Smithr on 81-19-2688UQE Auto (Urine sed) [#/Area]1-2 [HPF]0-4 [facility] Medical CenterErythrocytes [#/volume] in Blood by Automated countOrdered By: Marilyn Stewart on 10-38-9905SUQ (Bld) [#/Vol]3.77 10*6/uLNormal 3.60-5.00[facility] Medical CenterComment on above:Performed By: #### MG, CMP, CBC, LIPID #### [facility] [address] [place] [address] USAGlucose [Mass/volume] in Serum or PlasmaOrdered By: Vinay Matta on 28-71-0220Manpwgg [Mass/Vol]171 mg/sPJnsv50-803KdtcazxwePremier Health Atrium Medical CenterComment on above:ADA recommended reference rangeRandom Glucose Reference Range is dependent on time and content of last meal. Glucose of more than 200 mg/dL in a nonstressed, ambulatory subject supports the diagnosisof Diabetes Mellitus.Result Comment: Random Glucose Reference Range is dependent on time and content of last meal. Glucose of more than 200 mg/dL in a nonstressed, ambulatory subject supports the diagnosis of Diabetes Mellitus. ADA recommended reference rangePerformed By: #### MG, CMP, CBC, LIPID #### [facility] [address] [place] [address] USAGlucose [Mass/volume] in Urine by Test stripOrdered By: Marilyn Stewart on 22-74-6221Dhayaim Test strip (U) [Mass/Vol]Normal mg/dLNormal [facility] Medical CenterHematocrit [Volume Fraction] of Blood by Automated countOrdered By: Marilyn Stewart on 47-17-8233Cekscsjhfq (Bld) [Volume fraction]32.4 %Low34.0-46.4FTrinity Health System East CampusComment on above: Performed By: #### MG, CMP, CBC, LIPID #### [facility] [address] [place] [address] USAHemoglobin A1c/Hemoglobin.total in BloodOrdered By: Vinay Matta on 00-84-4570UbJ1b (Bld) [Mass fraction]7.1 %High4.3-5.6FTrinity Health System East CampusComment on above:Increased risk for diabetes: 5.7 - 6.4diabetes: >6.4glycemic control for adults with diabetes: <7.0Result Comment: Increased risk for diabetes: 5.7 - 6.4 diabetes: >6.4 glycemic control for adults with diabetes: <7.0Performed By: #### A1C WTH eA, LIPID #### [facility] [address] [place] [address] USAHemoglobin Test strip Ql (U)Ordered By: Marilyn Stewart on 26-89-4211Hmspazsuyh Ql (U)NegativeNegCleveland Clinic [facility] Hospital Hemoglobin [Mass/volume] in BloodOrdered By: Marilyn Stewart on 05-99-5624Qvviyrjmpt (Bld) [Mass/Vol]11.1 g/dLLow11.8-15.4FTrinity Health System East CampusComment on above:Performed By: #### MG, CMP, CBC, LIPID #### [place] [address] USAHemogram CBC Without Diffon 22-08-9680Grxl Corpuscular HGB Conc34.1 g/sZPmfmds59.0-35.0The Pending Sale To [facility] Physician GroupComment on above: Performed By: #### MG, CMP, CBC, LIPID #### [place] [address] USAWhite Blood Count5.4 [CFU]/mLNormal3.8-11.6The Pending Sale To [facility] Physician GroupComment on above:Performed By: #### MG, CMP, CBC, LIPID #### [place] [address] USAHyaline casts [#/area] in Urine sediment by Automated countOrdered By: Marilyn Stewart on 55-66-3125Xgbcwwm casts Auto (Urine sed) [#/Area]None [LPF]0-8[facility] Medical CenterKetones [Presence] in Urine by Test stripOrdered By: Marilyn Stewart on 70-33-4489Nstmrhu Ql (U)Negative NormalNegCleveland Clinic Avon HospitalComment on above:Order Comment: A1C IS NOT DUE UNTIL OCTOBER.Performed By: #### MG, CMP, CBC, LIPID #### [facility] [address] [place] [address] USALeukocyte esterase [Presence] in Urine by Test strip Ordered By: Marilyn Stewart on 60-93-7297Gplrmwtam esterase Test strip Ql (U) NegativeNormalNegativePremier Health Atrium Medical CenterComment on above:Order Comment: A1C IS NOT DUE UNTIL OCTOBER.Performed By: #### MG, CMP, CBC, LIPID #### [facility] [address] [place] [address] USALeukocytes [#/area] in Urine sediment by Automated count Ordered By: Marilyn Stewart on 11-95-2654UDA Auto (Urine sed) [#/Area]1-2 [HPF]0-4 [facility] Medical CenterLeukocytes [#/volume] corrected for nucleated erythrocytes in Blood by Automated counOrdered By: Marilyn Stewart on 62-21-7361QJA corrected for nucl RBC Auto (Bld) [#/Vol]5.4 10*3/uL3.8-11.6FTrinity Health System East CampusLipid Panelon 59-98-7590NQG Cholesterol,Rdvcdkchdi08 mg/dLNormal 0-100The Pending Sale To [facility] Physician GroupComment on above:Result Comment: LDL ATP III CLASSIFICATION LDL less than 100 mg/dL Optimal LDL 100-129 mg/dL Near or above optimal LDL 130-159 mg/dL Borderline high LDL 160-189 mg/dL High LDL greater than 189 mg/dL Very highPerformed By: #### A1C WTH eA, LIPID #### [facility] [address] [place] [address] USATriglyceride w/Msiypx917 mg/dLNormal0-149The Pending Sale To [facility] Physician GroupComment on above:Result Comment: TRIG ATP III CLASSIFICATION TRIG less than 150 mg/dL Normal TRIG 150-199 mg/dL Borderline high TRIG 200-500 mg/dL High TRIG greater than 500 mg/dL Very high Standard traceable to the Center for Disease Conrtrol and Prevention (CDC) test method.Performed By: #### A1C WTH eA, LIPID #### [facility] [address] [place] [address] USAVLDL PNYDMAMFQVV73 mg/dLNormalThe Pending Sale To [facility] Physician GroupComment on above:Performed By: #### A1C WTH eA, LIPID #### [facility] [address] [Entitic mass] by Automated countOrdered By: Marilyn Stewart on 91-62-0069KPU (RBC) [Entitic mass]29.3 doQygyez08.7-34.3FTrinity Health System East CampusComment on above:Performed By: #### MG, CMP, CBC, LIPID #### [facility] [address] Auto (RBC) [Mass/Vol]Ordered By: Marilyn Stewart on 72-16-4841HUNB (RBC) [Mass/Vol]34.1 g/dL32.0-35.0[facility] Medical CenterMCV [Entitic volume] by Automated countOrdered By: Marilyn Stewart on 56-41-6891FTD (RBC) [Entitic vol]86.0 dJMzxqxg52-768LdmpacwbzPremier Health Atrium Medical CenterComment on above:Performed By: #### MG, CMP, CBC, LIPID #### [facility] [address] [place] [address] USAMagnesium [Mass/volume] in Serum or PlasmaOrdered By: Marilyn Stewart on 66-95-9175Zfdicnxvs [Mass/Vol]1.4 mg/dLLow1.9-2.7FTrinity Health System East CampusComment on above:Performed By: #### MG, CMP, CBC, LIPID #### [facility] [address] [place] [address] USAMucus [Presence] in Urine by AutomatedOrdered By: Marilyn Stewart on 37-82-2794Fcrco Auto Ql (U)Rare [LPF][facility] Nitrite Test strip Ql (U)Ordered By: Marilyn Stewart on 89-12-9311Ykqpybo Ql (U) NegativeNegativePremier Health Atrium Medical CenterNo Panel InformationOrdered By: Vinay Matta on 40-99-6747Mrzzbwzkt GFR (CKD-EPI)41.095 mL/MinPremier Health Atrium Medical CenterPharmacy Creatinine Clearance (ChemN/AFTrinity Health System East CampusParathyrin.intact [Mass/volume] in Serum or PlasmaOrdered By: Marilyn Smithr on 41-71-9812Mppbcmytpk.intact [Mass/Vol]48.7 pg/oK82-33JzcapygnlPremier Health Atrium Medical CenterParathyroid Hormone Intacton 66-69-2939Lvsjtzwdics Hormone Tqfzss96.7 pg/qKSqmamx05-82Zrx Pending Sale To [facility] Physician GroupComment on above:Result Comment: PERFORMED BY: [place] [address] PATHOLOGIST [employer]ADER[employer] PROGRAM ASSOCIATE KARTHIK CHICAS M.D.Performed By: #### MG, CMP, CBC, LIPID #### [facility] [address] [place] [address] USAPhosphate [Mass/volume] in Serum or PlasmaOrdered By: Marilyn Terry on 35-87-2041Vloccmsjk [Mass/Vol]4.0 mg/dLNormal2.5-4.5FTrinity Health System East CampusComment on above:Result Comment: PERFORMED BY: [place] [address] PATHOLOGIST LEADER[employer]IP PROGRAM ASSOCIATE KARTHIK CHICAS M.D.Performed By: #### MG, CMP, CBC, LIPID #### [facility] [address] [place] [address] USAPlatelet mean volume [Entitic volume] in Blood by Automated countOrdered By: Marilyn Stewart on 68-76-7450Genegmqv mean volume (Bld) [Entitic vol]7.1 fLNormal6.3-10.7FTrinity Health System East CampusComment on above:Result Comment: PERFORMED BY: [place] [id number] PATHOLOGIST LEADERSHIP PROGRAM ASSOCIATE KARTHIK CHICAS M.D.Performed By: #### MG, CMP, CBC, LIPID #### [facility] [address] [place] [address] USAPlatelets [#/volume] in Blood by Automated countOrdered By: Marilyn Terry on 74-49-7193Hymlgxeni (Bld) [#/Vol]141 10*3/hTYjs235-243 [facility] Medical CenterComment on above:Performed By: #### MG, CMP, CBC, LIPID #### [facility] [address] [place] [address] USAPotassium [Moles/volume] in Serum or PlasmaOrdered By: Vinay Bunting on 42-18-2759Laoujwwzc [Moles/Vol]4.6 mmol/LNormal3.5-5.1 [facility] Medical CenterComment on above:Performed By: #### MG, CMP, CBC, LIPID #### [facility] [address] [place] [address] USAProtein Creat Ratio Ur Randomon 03-51-2008Lxtnaanyug, Urine (Random)63.00 mg/dLNormalThe Pending Sale To [facility] Health Physician GroupComment on above: Order Comment: A1C IS NOT DUE UNTIL OCTOBER.Result Comment: No reference range establishedPerformed By: #### MG, CMP, CBC, LIPID #### [place] [address] USAUrine Protein/Creatinine Rwdws445 mg/g{Cre}High0-200The Pending Sale To [facility] Health Physician GroupComment on above:Order Comment: A1C IS NOT DUE UNTIL OCTOBER.Result Comment: PERFORMED BY: [place] [address] PATHOLOGIST LEADER[employer]IP PROGRAM ASSOCIATE KARTHIK CHICAS M.D.Performed By: #### MG, CMP, CBC, LIPID #### [place] [id number] USAProtein Test strip (U) [Mass/Vol]Ordered By: Marilyn Stewart on 98-56-7286Htuynli (U) [Mass/Vol]NegativeNegativePremier Health Atrium Medical CenterProtein [Mass/volume] in Serum or PlasmaOrdered By: Vinay Bunting on 89-84-7036Icrnqoo [Mass/Vol]5.8 g/dLLow6.4-8.9[facility] Comment on above:Performed By: #### MG, CMP, CBC, LIPID #### [place] [address] USAProtein [Mass/volume] in UrineOrdered By: Marilyn Stewart on 22-26-9590Nqrkbdk (U) [Mass/Vol]14 mg/dLHigh0-9[facility] Comment on above:Order Comment: A1C IS NOT DUE UNTIL OCTOBER.Performed By: #### MG, CMP, CBC, LIPID #### [facility] [address] [place] [address] USASerum globulin measurement by calculation (mass/volume) Ordered By: Vinay Bunting on 34-09-1489Aewgtkpw (S) [Mass/Vol]2.0 g/dLNormal [facility] Medical CenterComment on above:Performed By: #### MG, CMP, CBC, LIPID #### [facility] [address] [place] [address] USASerum or plasma albumin/globulin mass ratioOrdered By: Vinay Bunting on 22-75-1712Rkqhznh/Globulin [Mass ratio]1.9 {ratio}Normal [facility] Medical CenterComment on above:Performed By: #### MG, CMP, CBC, LIPID #### [facility] [address] [place] [address] USASerum or plasma anion gap determinationOrdered By: Vinay Bunting on 42-68-2554Ysuav gap [Moles/Vol]9.2 mmol/LNormal6.0-15.0[facility] Medical CenterComment on above:Performed By: #### MG, CMP, CBC, LIPID #### [facility] [address] [place] [address] USASerum or plasma total cholesterol/high density lipoprotein (HDL) cholesterol mass ratOrdered By: Vinay Bunting on 06-26-2025 Cholesterol.total/Cholesterol in HDL [Mass ratio]2.8 {ratio}Normal<5.0Prem[facility] Atrium Medical CenterComment on above:Result Comment: PERFORMED BY: [place] [address] PATHOLOGIST LEADERSHIP PROGRAM ASSOCIATE KARTHIK CHICAS M.D.Performed By: #### A1C WTH eA, LIPID #### [place] [address] USASodium [Moles/volume] in Serum or PlasmaOrdered By: Vinay Bunting on 09-65-0893Blpxzl [Moles/Vol]140 mmol/YHxexbk013-662TjjndzbmtPremier Health Atrium Medical CenterComment on above:Performed By: #### MG, CMP, CBC, LIPID #### [facility] [address] [place] [address] USASpecific gravity Test strip (U) [Rel density]Ordered By: Marilyn Stewart on 77-90-2047Kcplrxql gravity (U) [Rel density]1.0161.001-1.030 [facility] Medical CenterTriglyceride [Mass/volume] in Serum or Plasma Ordered By: Vinay Bunting on 32-27-7421Budbznqjwuhs [Mass/Vol]112 mg/dL0-149 [facility] Medical CenterComment on above:TRIG ATP III CLASSIFICATIONTRIG less than 150 mg/dL NormalTRIG 150-199 mg/dL Borderline highTRIG 200-500 mg/dL High TRIG greater than 500 mg/dL Very highStandard traceable to the Center for Disease Conrtrol and Prevention (CDC) test method. Urate [Mass/volume] in Serum or PlasmaOrdered By: Marilyn Stewart on 50-80-7548Dvxjn [Mass/Vol]3.7 mg/dLNormal2.3-6.6FTrinity Health System East CampusComment on above:Performed By: #### MG, CMP, CBC, LIPID #### [facility] [address] [place] [address] USAUrea nitrogen [Mass/volume] in Serum or PlasmaOrdered By: Vinay Bunting on 67-95-3832Wgoe nitrogen [Mass/Vol]33 mg/dLHigh7-25[facility] Medical CenterComment on above:Performed By: #### MG, CMP, CBC, LIPID #### [facility] [address] [place] [address] USAUrine protein/creatinine ratioOrdered By: Marilyn Terry on 76-81-9161Myweyzv/Creatinine (U) [Ratio]222 mg/g{Cre}High0-200[facility] Medical CenterUrobilinogen Test strip (U) [Mass/Vol]Ordered By: Marilyn Terry on 05-11-3100Pukgseoygehg (U) [Mass/Vol]Normal mg/dLNormalPremier Health Atrium Medical CenterVitamin D 25 Hydroxy Totalon 49-31-1741Kcsjvke D 25 Hydroxy Total 61.6 ng/zEHdtvbl29-867Kpi Pending Sale To [facility] Health Physician GroupComment on above:Result Comment: VITAMIN D STATUS 25(OH)VITAMIN D RANGE (ng/mL) Deficient <20 Insufficient 20 to <30 Sufficient 30 to 100 Reference: Albert Campo, Beltran LACKEY, et al. Evaluation,treatment, and prevention of vitamin D deficiency; an Endocrine Society clinical practice guideline. JCEM. 2010; 96(7):1911-. PERFORMED BY: [place] [id number] PATHOLOGIST LEADERSHIP PROGRAM ASSOCIATE KARTHIK CHICAS M.D.Performed By: #### MG, CMP, CBC, LIPID #### [facility] [address] [place] [address] USAVitamin D+Metabolites [Mass/volume] in Serum or Plasma Ordered By: Marilyn Stewart on 04-48-0418Stcaoau D+Metabolites [Mass/Vol]61.6 ng/mL 30-100[facility] Medical CenterComment on above:VITAMIN D STATUS 25(OH)VITAMIN D RANGE (ng/mL) Deficient <20 Insufficient 20 to <21Jukceoqhyq94 to 100Reference: Albert Campo, Beltran LACKEY, et al. Evaluation,treatment, and prevention of vitamin D deficiency; an Endocrine Society clinical practice guideline. JCEM. 2010; 96(7):191-.pH of Urine by Test stripOrdered By: Marilyn Stewart on 10-24-2323sH (U)6.0 [pH]Normal5.0-9.0 [facility] Medical CenterComment on above:Order Comment: A1C IS NOT DUE UNTIL OCTOBER.Performed By: #### MG, CMP, CBC, LIPID #### [facility] [address] [place] [address] USACNOVSPon 37-01-8946AQLCORZshth (SP) Office ([place]) ANH TEJEDA ([id number]) 1950 F Date Time Provider Department 04/25/25 11:00 AM DAKSHA BRIDGES During your visit today, we recorded the following information about you: Temperature Pulse Respiration Blood pressure 97.9 degrees 84/minute 18/minute 158/78 Weight Height 100.9 kg 1.58 m Daksha Bridges PA-C 04/25/2025 11:19 AM Signed Hematology Progress Note PATIENT NAME: Anh Tejeda CLINIC NO.: [id number] ATTENDING PHYSICIAN: Henry Walker MD DATE OF [...] ?C (97.9 ?F) (Temporal) (more content not included)...NormalBucyrus Community HospitalERYTHROPOIETIN/EPOon 04-19-2025 Erythropoietin (EPO) Qn26.7 [IU]/LHighAvita Health SystemErythropoietin (EPO) Qnon 80-69-2909Qwvprmaoysykec and review of laboratory resultsAbnormalCleveland ClinicTest analyzed by the [employer] DxI method.[facility] CBC W Auto Differential panel (Bld)on 17-88-5454Phgprqlmd (Bld) [#/Vol]NINF [facility] SystemBasophils/100 WBC (Bld)0.2 %[facility] Health SystemDifferential cell count method Nom (Bld)AutoCleveland ClinicEosinophils (Bld) [#/Vol]0.09 10*3/uL NINFClevelecu health edgecombe hospital ClinicEosinophils/100 WBC (Bld)1.6 %Avita Health SystemErythrocyte distribution width (RBC) [Ratio]16.4 %High11.5 - 15.0 %[facility] Hematocrit (Bld) [Volume fraction]32.9 %Low36.0 - 46.0 %[facility] Hemoglobin (Bld) [Mass/Vol]11 g/dLLow11.5 - 15.5 g/dLAvita Health SystemImmature granulocytes (Bld) [#/Vol]NINFClevelSt. Elizabeth HospitalImmature granulocytes/100 WBC (Bld)0.4 %[facility] Health SystemLymphocytes (Bld) [#/Vol]1.4 10*3/uLAvita Health System Lymphocytes/100 WBC (Bld)24.8 %[facility] HospitalH (RBC) [Entitic mass]29.5 pg 26.0 - 34.0 pgCHolmes County Joel Pomerene Memorial HospitalMCHC (RBC) [Mass/Vol]33.4 g/dL30.5 - 36.0 g/dL [facility] County HospitalV (RBC) [Entitic vol]88.2 fL80.0 - 100.0 fLCHolmes County Joel Pomerene Memorial Hospital Monocytes (Bld) [#/Vol]0.36 10*3/uLNINFAvita Health SystemMonocytes/100 WBC (Bld) 6.4 %[facility]ita Health SystemNeutrophils (Bld) [#/Vol]3.77 10*3/[facility] Neutrophils/100 WBC (Bld)66.6 %[facility] Health SystemNucleated RBC (Bld) [#/Vol]NINF [facility] Health SystemNucleated RBC/100 WBC (Bld) [Ratio]0 %/100 WBCAvita Health System Platelet mean volume (Bld) [Entitic vol]9 fL9.0 - 12.7 fLCHolmes County Joel Pomerene Memorial Hospital Platelets (Bld) [#/Vol]136 10*3/uLLowAvita Health SystemRBC (Bld) [#/Vol]3.73 10*6/uLLow3.90 - 5.20 m/[facility] Medical CenterWBC (Bld) [#/Vol]5.65 10*3/[facility] Medical CenterBasophils (Bld) [#/Vol]10*3/uLNormal<0.11CC[facility] Comment on above:Order Comment: Specimen Type: BLOOD SPECIMENOrdering Facility: [facility] Address:[address] [place] [address] Performed By: #### 16717-6, 54835-0 ####[facility] LABIA [id number] [place], [place] [address]Aqiwhadnt/100 WBC (Bld)0.2 %NormalBucyrus Community HospitalComment on above:Order Comment: Specimen Type: BLOOD SPECIMENOrdering Facility: [facility] Address:[address] [place], [place] [address]Hmifrebco By: #### 54005-9, 79899-6 ####[facility] LABCLIA [id number] [place], [place] [address]Ydbooxswpnve cell count method Nom (Bld)AutoNormal [facility] HospitalComduane l. waters hospital on above:Order Comment: Specimen Type: BLOOD SPECIMENOrdering Facility: [facility] Address:[address] [place], [place] [address]Performed By: #### 91397-6, 28418-3 ####[facility] LABCLIA [id number] [place] [address] Eosinophils (Bld) [#/Vol]0.09 10*3/uLNormal<0.46[facility] Comment on above:Order Comment: Specimen Type: BLOOD SPECIMENOrdering Facility: [facility] Address:[address] [place] [address] Performed By: #### 20829-2, 11043-0 ####[facility] LABCLIA [id number] [place], [place] [address]Pzpqzcrkbaf/100 WBC (Bld)1.6 %NormalSelect Medical Specialty Hospital - [facility] on above:Order Comment: Specimen Type: BLOOD SPECIMENOrdering Facility: [facility] Address:[address] [place], [place] [address]Performed By: #### 01252-3, 34754-1 ####[facility] LABCLIA [id number] [place], [place] [address]Uocquzqknrp distribution width (RBC) [Ratio]16.4 %High 11.5-15.0[facility] on above:Order Comment: Specimen Type: BLOOD SPECIMENOrdering Facility: [facility] Address:[address] [place], [place] [address]Performed By: #### 65449-0, 05840-2 ####[facility] LABCLIA [id number] [place], [place] [address]Wjvuydftuy (Bld) [Volume fraction]32.9 %Low36.0-46.0 [facility] on above:Order Comment: Specimen Type: BLOOD SPECIMENOrdering Facility: [facility] Address:[address] [place], [place] [address]Performed By: #### 55097-4, 44806-9 ####[facility] LABCLIA [id number] [place] [address] Hemoglobin (Bld) [Mass/Vol]11.0 g/dLLow11.5-15.5CC[facility] Comment on above:Order Comment: Specimen Type: BLOOD SPECIMENOrdering Facility: [facility] Address:[address] [place] [address] Performed By: #### 00674-2, 86465-9 ####[facility] LABIA [id number] [place], [place] [address]Ehfvfslr granulocytes (Bld) [#/Vol]10*3/uLNormal<0.10[facility] on above:Order Comment: Specimen Type: BLOOD SPECIMENOrdering Facility: [facility] Address:[address] [place], [place] [address]Performed By: #### 57963- 8, 84053-0 ####[facility] LABIA [id number] [place], [place] [address]Oljswekv granulocytes/100 WBC (Bld)0.4 %Normal [facility] on above:Order Comment: Specimen Type: BLOOD SPECIMENOrdering Facility: [facility] Address:[address] [place], [place] [address]Performed By: #### 79051-8, 32511-9 ####[facility] LABIA [id number] [place] [address] Lymphocytes (Bld) [#/Vol]1.40 10*3/uLNormal1.00-4.00[facility] Comment on above:Order Comment: Specimen Type: BLOOD SPECIMENOrdering Facility: [facility] Address:[address] [place] [address] Performed By: #### 15008-7, 95033-7 ####[facility] LABCLIA [id number] [place], [place] [address]Zijxgxajjgp/100 WBC (Bld)24.8 %NormalSelect Medical Specialty Hospital - [facility] on above:Order Comment: Specimen Type: BLOOD SPECIMENOrdering Facility: [facility] Address:[address] [place], [place] [address]Performed By: #### 66955-7, 54676-1 ####[facility] LABCLIA [id number] [place], [place] [address]NYZ (RBC) [Entitic mass]29.5 ivHjtvcb09.0-34.0[facility] on above:Order Comment: Specimen Type: BLOOD SPECIMENOrdering Facility: [facility] Address:[address] [place], [place] [address]Performed By: #### 25969-6, 00546-6 ####[facility] LABCLIA [id number] [place], [place] [address]ADEV (RBC) [Mass/Vol]33.4 g/rDFjdale70.5-36.0[facility] on above:Order Comment: Specimen Type: BLOOD SPECIMENOrdering Facility: [facility] Address:[address] [place], [place] [address]Performed By: #### 06737-0, 04590-9 ####[facility] LABCLIA [id number] [place], [place] [address]UXE (RBC) [Entitic vol]88.2 fLNormal 80.0-100.0[facility] on above:Order Comment: Specimen Type: BLOOD SPECIMENOrdering Facility: [facility] Address:[address] [place], [place] [address]Performed By: #### 31454-9, 76489-7 ####[facility] LABCLIA [id number] [place], [place] [address]Kqipxrttn (Bld) [#/Vol]0.36 10*3/uLNormal<0.87[facility] on above:Order Comment: Specimen Type: BLOOD SPECIMENOrdering Facility: [facility] Address:[address] [place], [place] [address]Performed By: #### 15037-9, 23334-3 ####[facility] LABCLIA [id number] [place] [address] Monocytes/100 WBC (Bld)6.4 %NormalSelect Medical Specialty Hospital - [facility] on above: Order Comment: Specimen Type: BLOOD SPECIMENOrdering Facility: [facility] Address:[address] [place], [place] [address]Performed By: #### 18571- 8, 37714-5 ####[facility] LABIA [id number] [place], [place] [address]Mtuyojkvchb (Bld) [#/Vol]3.77 10*3/uLNormal 1.45-7.50[facility] on above:Order Comment: Specimen Type: BLOOD SPECIMENOrdering Facility: [facility] Address:[address] [place], [place] [address]Performed By: #### 29515-4, 16241-6 ####[facility] LABIA [id number] [place], [place] [address]Zihvyseecng/100 WBC (Bld)66.6 %NormalSelect Medical Specialty Hospital - [place] on above:Order Comment: Specimen Type: BLOOD SPECIMENOrdering Facility: [facility] Address:[address] [place], [place] [address]Performed By: #### 43845-5, 35020-1 ####[facility] LABIA [id number] [place], [place] [address]Kklwgsesx RBC (Bld) [#/Vol]10*3/uLNormal<0.01[facility] on above:Order Comment: Specimen Type: BLOOD SPECIMENOrdering Facility: [facility] Address:[address] [place], [place] [address]Performed By: #### 24748- 8, 49194-1 ####[facility] LABCLIA [id number] [place], [place] [address]Jcuhsgxxu RBC/100 WBC (Bld) [Ratio]0.0 /100 WBC NormalSelect Medical Specialty Hospital - [place] on above:Order Comment: Specimen Type: BLOOD SPECIMENOrdering Facility: [facility] Address:[address] [place], [place] [address]Performed By: #### 15144-7, 23522-1 ####[facility] LABCLIA [id number] [place], [place] [address]Jqjjfmxp mean volume (Bld) [Entitic vol]9.0 fLNormal9.0-12.7CC[facility] on above:Order Comment: Specimen Type: BLOOD SPECIMENOrdering Facility: [facility] Address:[address] [place], [place] [address]Performed By: #### 86382-7, 79847-7 ####[facility] LABCLIA [id number] [place] [address] Platelets (Bld) [#/Vol]136 10*3/rCMzj938-945UehxqpzhkSelect Medical Specialty Hospital [facility] [place] on above:Order Comment: Specimen Type: BLOOD SPECIMENOrdering Facility: [facility] Address:[address] [place], [place] [address]Performed By: #### 08227-2, 08317-2 ####[facility] LABCLIA [id number] [place], [place] [address]PQB (Bld) [#/Vol]3.73 10*6/uLLow3.90-5.20 [facility] on above:Order Comment: Specimen Type: BLOOD SPECIMENOrdering Facility: [facility] Address:[address] [place], [place] [address]Performed By: #### 63873-1, 25226-3 ####[facility] LABCLIA [id number] [place], [place] [address]NWY (Bld) [#/Vol]5.65 10*3/uLNormal3.70-11.00Bu[facility]rus Community HospitalComment on above:Order Comment: Specimen Type: BLOOD SPECIMENOrdering Facility: [facility] Address:[address] [place], [place] [address]Glarzptii By: #### 64650-5, 42518-7 ####[facility] CENTERZANDRA [facility] LABCLIA [id number] [place], [place] [address]Ayhjgzauycovf metabolic 2000 panelOrdered By: Naida Bruce on 50-67-8077Mybkoum [Mass/Vol]4.2 g/dL3.9 - 4.9 g/dLGeorgetown ClinicALP [Catalytic activity/Vol]157 U/LHigh34 - 123 U/LCleveland ClinicALT [Catalytic activity/Vol]17 U/L7 - 38 U/LCleveland ClinicAnion gap [Moles/Vol]10 mmol/L8 - 15 mmol/LCleveland ClinicAST [Catalytic activity/Vol]18 U/L13 - 35 U/L [facility] SystemBilirubin [Mass/Vol]0.8 mg/dL0.2 - 1.3 mg/dLAvita Health System Calcium [Mass/Vol]10 mg/dL8.5 - 10.2 mg/dLGeorgetown ClinicChloride [Moles/Vol] 102 mmol/L98 - 107 mmol/LCleveland ClinicCO2 [Moles/Vol]28 mmol/L22 - 30 mmol/L [facility] SystemCreatinine [Mass/Vol]1.16 mg/dLHigh0.58 - 0.96 mg/dLAvita Health SystemGFR/1.73 sq M.predicted among non-blacks MDRD (S/P/Bld) [Vol rate/Area]49 mL/min/{1.73_m2}Low- PINFCleveland ClinicComment on above:Estimated Glomerular Filtration Rate (eGFR) is calculated using the 2020 CKD-EPI creatinine equation. This equation utilizes serum creatinine, sex, and age as parameters. The creatinine assay has traceable calibration to isotope dilution-mass spectrometry. Refer to KDIGO guidelines for clinical interpretation. In patients with unstable renal function, e.g. those with acute kidney injury, the eGFRmay not accurately reflect actual GFR.Glucose [Mass/Vol]154 mg/lJTxhh28 - 99 mg/dL [facility] on above:The [place] [employer] (ADA) provides guidance for cutoff values for fasting glucose andrandom glucose. The ADA defines fasting as no caloric intake for at least 8 hours. Fasting plasma gl ucose results between 100 to 125 mg/dL indicate [...] Standards of Medical Care in Diabetes 2016, [place] [employer]. Diabetes Care. 2016.39(Suppl 1). Interpretation and review of laboratory resultsAbnormalCleveland ClinicPotassium [Moles/Vol]4.9 mmol/L3.7 - 5.1 mmol/LClevelecu health edgecombe hospital ClinicProtein [Mass/Vol]6.4 g/dL 6.3 - 8.0 g/dLPremier Health Atrium Medical Centerodium [Moles/Vol]140 mmol/L136 - 144 mmol/L [facility] SystemUrea nitrogen [Mass/Vol]33 mg/dLHigh7 - 21 mg/dLOhio State University Wexner Medical CenterComprehensive metabolic 2000 panelon 50-81-5126Zhjcprr [Mass/Vol]4.2 g/dLNormal3.9-4.9CC[facility] on above:Order Comment: Specimen Type: BLOOD SPECIMEN [facility] Address: [address] [place], [place] [address]Performed By: #### 70304-7, 2276-4 #### [facility] CLIA [id number] [address] [place] [address] [place] AMERICAALP [Catalytic activity/Vol] 157 U/MUtvu94-266AfgpxbnbrSelect Medical Specialty Hospital - [facility] on above:Order Comment: Specimen Type: BLOOD SPECIMEN [facility] Address: [address] [place], [place] [address]Performed By: #### 29110-3, 2276-02 #### [facility] CLIA [id number] [address] [place], [place] [address] [place] AMERICAALT [Catalytic activity/Vol] 17 U/LNormal7-38[facility] on above:Order Comment: Specimen Type: BLOOD SPECIMEN [facility] Address: [address] [place], [place] [address]Performed By: #### 72047-5, 2276-02 #### [facility] CLIA [id number] [address] [place] [address] [place] AMERICAAnion gap [Moles/Vol]10 mmol/LNormal8-15[facility] on above:Order Comment: Specimen Type: BLOOD SPECIMEN [facility] Address: [address] [place], [place] [address]Performed By: #### 03606-2, 2276-02 #### [facility] CLIA [id number] [address] [place] [address] [place] AMERICAAST [Catalytic activity/Vol] 18 U/DFzsffs82-21OnfjzhmzbSelect [facility] [place] on above:Order Comment: Specimen Type: BLOOD SPECIMEN Ordering Facility: [facility] Address: [address] [place], [place] [address]Performed By: #### [id number], 2276-02 #### [facility] CLIA [id number] [address] [place], [place] [id number] [place] AMERICABilirubin [Mass/Vol]0.8 mg/dLNormal0.2-1.3[facility] on above:Order Comment: Specimen Type: BLOOD SPECIMEN Ordering Facility: [facility] Address: [address] [place], [place] [address]Performed By: #### 46068-7, 2275- #### [facility] CLIA [id number] [address] [place] [address] [place] OF AMERICACalcium [Mass/Vol]10.0 mg/dL Normal8.5-10.2CC[facility] on above:Order Comment: Specimen Type: BLOOD SPECIMEN Ordering Facility: [facility] Address: [address] [place], [place] [address]Performed By: #### 31156-3, 2276-02 #### [facility] CLIA [id number] [address] [place] [address] [place] OF AMERICAChloride [Moles/Vol]102 mmol/EYquxvw62-844ZlduhpdotSelect Medical Specialty [facility] on above:Order Comment: Specimen Type: BLOOD SPECIMEN [facility]ing Facility: [facility] Address: [address] [place], [place] [address]Performed By: #### 21034-7, 2276-02 #### [facility] CLIA [id number] [address] [place] [address] [place] AMERICACO2 [Moles/Vol]28 mmol/L Ittbjk75-28XdejrfjvwSelect Medical Specialty [facility] on above:Order Comment: Specimen Type: BLOOD SPECIMEN [facility]ing Facility: [facility] Address: [address] [place], [place] [address]Performed By: #### 61684-3, 2276-02 #### [facility] CLIA [id number] [address] [place] [address] [place] AMERICACreatinine [Mass/Vol]1.16 mg/dLHigh0.58-0.96[facility] on above:Order Comment: Specimen Type: BLOOD SPECIMEN Ordering Facility: [facility] Address: [address] [place], [place] [address]Performed By: #### 55217-6, 2276-02 #### [facility] CLIA [id number] [address] [place] [address] [place] AMERICACreatinine and Glomerular filtration rate.predicted panel (S/P/Bld)49 mL/min/1.73m???Low>=60[facility] on above:Order Comment: Specimen Type: BLOOD SPECIMEN Ordering Facility: [facility] Address: [address] [place], [place] [address]Result Comment: Estimated Glomerular Filtration Rate (eGFR) is calculated using the 2020 CKD-EPI cre atinine equation. This equation utilizes serum creatinine, sex, and age as parameters. The creatinine assay has traceable calibration to isotope dilution- mass spectrometry. Refer to KDIGO guidelines for clinical interpretation. In patients with unstable renal function, e.g. those with acute kidney injury, the eGFR may not accurately reflect actual GFR.Performed By: #### 17421-5, 2276-4 #### [facility] CLIA [id number] [address] [place] [address] [place] AMERICAGlucose [Mass/Vol]154 mg/dL Ebmu67-66ZlswzmrgxSelect [facility] on above:Order Comment: Specimen Type: BLOOD SPECIMEN [facility] Facility: [facility] Address: [address] [place], [place] [address]Result Comment: The [place] Diabetes Association (ADA) provides guidance for cutoff [...] Standards of Medical Care in Diabetes 2016, [place] [employer]. Diabetes Care. 2016.39(Suppl 1).Performed By: #### 49214-8, 2276-4 #### [facility] CLIA [id number] [address] [place], [place] [address] [place] AMERICAPotassium [Moles/Vol]4.9 mmol/LNormal3.7-5.1[facility] ClevelandComment on above:Order Comment: Specimen Type: BLOOD SPECIMEN Ordering Facility: [facility] Address: [address] [place], [place] [address]Performed By: #### 96307-6, 6-4 #### [facility] CLIA [id number] [address] [place] [address] [place] AMERICAProtein [Mass/Vol]6.4 g/dL Normal6.3-8.0[facility] on above:Order Comment: Specimen Type: BLOOD SPECIMEN Ordering Facility: [facility] Address: [address] [place], [place] [address]Performed By: #### 93754-1, 2275-4 #### [facility] IA [id number] [address] [place] [address] [place] AMERICASodium [Moles/Vol]140 mmol/L Aasngf118-081AnraxcdjnSelect Medical Specialty Hospital [facility] on above:Order Comment: Specimen Type: BLOOD SPECIMEN Ordering Facility: [facility] Address: [address] [place], [place] [address]Performed By: #### 27993-3, 2275-4 #### [facility] IA [id number] [address] [place] [address] [place] AMERICAUrea nitrogen [Mass/Vol]33 mg/dLHigh7-21[facility] on above:Order Comment: Specimen Type: BLOOD SPECIMEN Ordering Facility: [facility] Address: [address] [place], [place] [address]Performed By: #### 57047-1, 2275-4 #### [facility] CLIA [id number] [address] [place] [address] [place] AMERICAEPO SerPl-aCncon 04-18-2025 Erythropoietin (EPO) Qn26.7 mIU/mLHigh2.6-18.5CCleveland Clinic [facility] on above:Order Comment: Specimen Type: BLOOD SPECIMEN Ordering Facility: [facility] Address: [address] [place], [place] [address]Performed By: #### 39831-2, 2276-4 #### [facility] CLIA [id number] [address] [place] [address] [place] AMERICAFERRITINon 04-18-2025 Ferritin [Mass/Vol]398 ng/jXVgaq20.7 - 205.1 ng/mLCmercy health lorain hospitaland ClinicFOLATE, SERUM on 28-02-0833Sfshlf [Mass/Vol]ng/mL4.7 - PINF ng/mLClevelSt. Elizabeth HospitalComment on above:A result of > 20 ng/mL is not necessarily indicative of a pathologic or treatable condition: it reflects a limitation of the test methodology. Assay reference range: 4.8 to 24.2 ng/mL. Suitable for detection of folate deficiency. Reference: Folate III (Folate III) [package insert V 1.0 Vietnamese]. [facility], [place], [place]: September 2015. Ferritin SerPl-mCncon 16-04-0992Cuvalxtm [Mass/Vol]398.0 ng/kFEpqi87.7-205.1 [facility] on above:Order Comment: Specimen Type: BLOOD SPECIMENOrdering Facility: [facility] Address:[address] [place], [place] [address]Performed By: #### 41644-9, 2276-4, 3016-3, 4542-7 ####[facility]IA [id number] [place] [address] [place] AMERICAFerritin [Mass/Vol]on 04-18-2025 Interpretation and review of laboratory resultsAbnormalCleveland ClinicFolate SerPl-mCncon 61-95-4743Ndhnfb [Mass/Vol]ng/mLNormal>4.7CC[facility] Clinic [facility] on above:Order Comment: Specimen Type: BLOOD SPECIMENOrdering Facility: [facility] Address:[address] [place], [place] [address]Result Comment: A result of > 20 ng/mL is not necessarily indicative of a pathologic or treatable condition: it reflects a limitation of the test methodology. Assay reference range: 4.8 to 24.2 ng/mL. Suitable for detection of folate deficiency. Reference: Folate III (Folate III) [package insert V 1.0 Vietnamese]. [facility], [place], [place]: September 2015.Performed By: #### 2885-2, 2132-9, 2284-8 ####[facility] [id number] [address] [address] [place] [facility] HOSPITALHAPTOGLOBINon 04-18-2025 Haptoglobin [Mass/Vol]155 mg/dL31 - 238 mg/dLAvita Health SystemHaptoglob SerPl-mCncon 73-29-8956Ioxystmmhur [Mass/Vol]155 mg/aLRkcdvk22-454XetefzieiSelect Medical Specialty Hospital [facility] on above:Order Comment: Specimen Type: BLOOD SPECIMENOrdering Facility: [facility] Address:[address] [place], [place] [address]Performed By: #### 75642-0, 2276-4, 3016-3, 4542-7 ####[facility]IA [id number] [place] [id number] [place] OF AMERICAIMMUNOFIXATION SCREEN, SERUMon 21-19-0974KZR RESULTNo M protein is identified.NormalNo M protein is identified. [facility] on above:Order Comment: Specimen Type: BLOOD SPECIMEN [facility]ing Facility: [facility] Address: [address] [place], [place] [address]Performed By: #### 13235-8, 6-4 #### [facility] CLIA [id number] [address] [place] [address] [place] AMERICASTAFF REVIEW (MPA)Reviewed by Mo Gomes MD, Ph.D ([id number])[facility] on above:Order Comment: Specimen Type: BLOOD SPECIMEN [facility] Facility: [facility] Address: [address] [place], [place] [address]Performed By: #### 83354-7, 6-4 #### [facility] CLIA [id number] [address] [place] [address] [place] AMERICAIMMUNOGLOBULINS,IGG,IGA,IGM on 50-44-9851LnP [Mass/Vol]48 mg/yGDtr01-093LggcdojqgSelect Medical [facility]ty [facility] on above:Order Comment: Specimen Type: BLOOD SPECIMEN [facility] Address: [address] [place], [place] [address]Performed By: #### 93585-4, 6-4 #### [facility] CLIA [id number] [address] [place] [address] [place] AMERICAIgG [Mass/Vol]682 mg/dLLow 700-1600[facility] on above:Order Comment: Specimen Type: BLOOD SPECIMEN Ordering Facility: [facility] Address: [address] [place], [place] [address]Performed By: #### 73402-3, 6-4 #### [facility] CLIA [id number] [address] [place] [address] [place] AMERICAIgM [Mass/Vol]42 mg/dLNormal 40-230[facility] on above:Order Comment: Specimen Type: BLOOD SPECIMEN Ordering Facility: [facility] Address: [address] [place], [place] [address]Performed By: #### 90486-1, 6-4 #### [facility] CLIA [id number] [address] [place] [address] [place] AMERICAIron and Iron binding capacity panelon 38-27-0908Yiqz [Mass/Vol]73 ug/dL41 - 186 ug/dLAvita Health System Iron binding capacity [Mass/Vol]336 ug/dL232 - 386 ug/dLAvita Health System Iron/TIBC [Molar ratio]21.7 %15.0 - 57.0 %Avita Health SystemIron [Mass/Vol]73 ug/pGHhggil48-423KmkksempgSelect Medical Specialty Hospital [facility] on above:Order Comment: Specimen Type: BLOOD SPECIMENOrdering Facility: [facility] Address:[address] [place], [place] [address]Performed By: #### 41659-1, 6-4, 3016-3, 4542-7 ####[facility]IA [id number] [place] [address] [place] AMERICAIron binding capacity [Mass/Vol]336 ug/jHJpewrc538-995VslpbjpdsSelect Medical [facility]ty [facility] on above:Order Comment: Specimen Type: BLOOD SPECIMENOrdering Facility: [facility] Address:[address] [place], [place] [address]Performed By: #### 94296- 8, 6-4, 3016-3, 4542-7 ####[facility]IA [id number] [place] [address] [place] Iron/TIBC [Molar ratio]21.7 %Amyqur44.0-57.0[facility] on above:Order Comment: Specimen Type: BLOOD SPECIMENOrdering Facility: [facility] Address:[address] [place], [place] [address]Performed By: #### 45929-5, 6-4, 3016-3, 4542-7 ####[facility]IA [id number] [place] [address] [place] KAPPA/SAMANIEGO,FREE,SERon 09-06-8059Bizwhndurwwiqo light chains.kappa.free (S) [Mass/Vol]28.2 mg/LHigh3.3-19.4CC[facility] on above:Order Comment: Specimen Type: BLOOD SPECIMEN Order[facility] Facility[facility] Address: [address] [place], [place] [address]Result Comment: Rarely, increased serum free light chains levels may not be detected or accurately quantified due to prozone phenomenon or in high viscosity samples using this immunoturbidimetric assay. Correlation with other laboratory results and clinical findings is recommended. The Cherry Free Light Chain was performed using the Binding Site Optilite immunoturbidimetric method. Result obtained with different assay methods or kits cannot be used interchangeably.Performed By: #### 34796-2, 6-4 #### [facility] CLIA [id number] [address] [place] [address] [place] AMERICAImmunoglobulin light chains.kappa/Immunoglobulin light chains.lambda (S) [Mass ratio]1.16Normal 0.26-1.65[facility] on above:Order Comment: Specimen Type: BLOOD SPECIMEN [facility] Address: [address] [place], [place] [address]Performed By: #### 32504-4, 2276-02 #### [facility] CLIA [id number] [address] [place] [address] [place] AMERICAImmunoglobulin light chains.lambda.free [Mass/Vol]24.4 mg/LNormal5.7-26.3CC[facility] Comment on above:Order Comment: Specimen Type: BLOOD SPECIMEN Order[facility] Facility[facility] Address: [address] [place], [place] [address]Result Comment: Rarely, increased serum free light chains levels may not be detected or accurately quantified due to prozone phenomenon or in high viscosity samples using this immunoturbidimetric assay. Correlation with other laboratory results and clinical findings is recommended. The Lambda Free Light Chain was performed using the Binding Site Optilite immunoturbidimetric method. Result obtained with different assay methods or kits cannot be used interchangeably.Performed By: #### 64597-7, 2276-02 #### [facility] CLIA [id number] [address] [place] [address] [place] AMERICALACTATE DEHYDROGENASEon 19-53-1507TXT [Catalytic activity/Vol]236 U/VEwbs499 - 214 U/LCHolmes County Joel [facility] LDH SerPl-cCncon 36-99-1355WRC [Catalytic activity/Vol]236 U/RPgkz607-943 [facility] on above:Order Comment: Specimen Type: BLOOD SPECIMEN [facility] Address: [address] [place], [place] [address]Performed By: #### 80091-6, 2276-02 #### [facility] CLIA [id number] [address] [place] [address] [place] AMERICALDH [Catalytic activity/Vol] on 47-98-6906Hddrswsluvskqy and review of laboratory resultsAbnormalCleveland University Hospitals TriPoint Medical CenterNo Panel Informationon 63-18-3934Mgwzzmoep Clinic Interpretation and review of laboratory resultsNormalCleveland [facility] Hospitals TriPoint Medical CenterInterpretation and review of laboratory resultsNormalCmercy health lorain hospitaland Clinic Georgetown ClinicInterpretation and review of laboratory resultsAbnormalCJ.W. Ruby Memorial HospitalPROTEIN ELECTROPHORESIS SERUM (P)on 34-36-8981Affofyq [Mass/Vol]3.85 g/dLNormal3.43-5.41[facility] on above: Order Comment: Specimen Type: BLOOD SPECIMENOrdering Facility: [facility] Address:[address] [place], [place] [address]Performed By: #### [id number] ####[facility]CLIA [id number] [place] [address] [place] AMERICAAlpha 1 globulin Elph [Mass/Vol]0.37 g/dLNormal0.18-0.43[facility] on above: Order Comment: Specimen Type: BLOOD SPECIMENOrdering Facility: [facility] Address:[address] [place], [place] [address]Performed By: #### [id number] ####[facility] LABCLIA [id number] [place] [address] [place] AMERICAAlpha 2 globulin Elph [Mass/Vol]0.78 g/dLNormal0.42-0.98[facility] on above: Order Comment: Specimen Type: BLOOD SPECIMENOrdering Facility: [facility] Address:[address] [place], [place] [address]Performed By: #### [id number] ####[facility]CLIA [id number] [place] [address] [place] AMERICABeta globulin Elph [Mass/Vol]0.67 g/dLNormal0.61-1.17[facility] on above: Order Comment: Specimen Type: BLOOD SPECIMENOrdering Facility: [facility] Address:[address] [place], [place] [address]Performed By: #### [id number] ####[facility] LABCLIA [id number] [place] [address] [place] AMERICAGamma globulin Elph [Mass/Vol]0.54 g/dLNormal0.53-1.51[facility] on above: Order Comment: Specimen Type: BLOOD SPECIMENOrdering Facility: [facility] Address:[address] [place], [place] [address]Performed By: #### [id number] ####[facility]IA [id number] [place] [address] [place] AMERICAM-PROTEIN LOCATION NormalSelect Medical Specialty [facility] on above:Order Comment: Specimen Type: BLOOD SPECIMENOrdering Facility: [facility] Address:[address] [place], [place] [address]Result Comment: Not Applicable.Performed By: #### [id number] ####[facility]IA [id number] [place] [address] [place] AMERICAProtein Fractions [Interp]No definitive M protein is identified on protein electrophoresis.Normal No definitive M protein is identified on protein electrophoresis.[facility] on above:Order Comment: Specimen Type: BLOOD SPECIMENOrdering Facility: [facility] Address:[address] [place], [place] [address]Performed By: #### [id number] ####[facility]IA [id number] [place] [address] [place] AMERICAProtein.monoclonal Elph [Mass/Vol]0.00 g/dLNormal<=0.00[facility] on above:Order Comment: Specimen Type: BLOOD SPECIMENOrdering Facility: [facility] Address:[address] [place] [address]Sddjovpai By: #### [id number] ####[facility] LABCLIA [id number] [place] [id number] [facility] SPE STAFF REVIEWReviewed by Mo Gomes MD, Ph.D ([id number])[facility] on above:Order Comment: Specimen Type: BLOOD SPECIMENOrdering Facility: [facility] Address:[address] [place], [place] [address]Performed By: #### [id number] ####[facility] LABCLIA [id number] [place] [id number] [facility] OF AMERICAProt SerPl-mCncon 36-65-6206Mxweymx [Mass/Vol]6.2 g/dLLow6.3-8.0 [facility] on above:Order Comment: Specimen Type: BLOOD SPECIMENOrdering Facility: [facility] Address:[address] [place], [place] [address]Performed By: #### 2885-2, 2132-9, 2284-8 ####[facility]IA [id number] [address] STREETRETICULOCYTE COUNTon 49-30-0463Uqyewxhodhkfc (Bld) [#/Vol]0.154 10*3/uLHighAvita Health SystemRetphoenix indian medical center #on 21-27-5413Tmgaqvbonikgb (Bld) [#/Vol]0.39572 10*3/uLHigh0.018-0.100[facility] on above:Order Comment: Specimen Type: BLOOD SPECIMENOrdering Facility: [facility] Address:[address] [place], [place] [address]Performed By: #### 76003-4, 88363-0 ####[facility] LABCLIA [id number] [place], [place] [address]Fresbesjmcpmg (Bld) [#/Vol]on 04-18-2025 Reticulocytes/100 RBC (Bld)4.1 %High0.4 - 2.0 %Avita Health SystemReticulocytes/100 RBC (Bld)4.1 %High0.4-2.0[facility] on above:Order Comment: Specimen Type: BLOOD SPECIMENOrdering Facility: [facility] Address:[address] [place], [place] [address]Performed By: #### 41222- 8, 48780-9 ####[facility] LABCLIA [id number] [place], [place] [address]KWWBLND STIMULATING HORMONEon 78-69-0662WES Qn1.25 m[IU]/LCleveland [facility] Qnon 61-33-2956Btifzexsxrarae and review of laboratory resultsNormalCMercer County Community Hospital SerPl-aCncon 53-59-5810ROG Qn1.250 m[IU]/LNormal0.270-4.200[facility] on above:Order Comment: Specimen Type: BLOOD SPECIMENOrdering Facility: [facility] Address:[address] [place], [place] [address]Performed By: #### 26299- 8, 2276-4, 3016-3, 4542-7 ####[facility] LABCLIA [id number] [place] [address] [place] AMERICAVITAMIN B12on 14-21-9762Yzwffmput (Vitamin B12) [Mass/Vol]854 pg/mL232 - 1245 pg/mL Avita Health SystemVit B12 SerPl-mCncon 65-22-4149Tnjzpnwjb (Vitamin B12) [Mass/Vol]854 pg/kGOrwdac555-0048FsziqyanoCleveland Clinic [facility] on above: Order Comment: Specimen Type: BLOOD SPECIMENOrdering Facility: [facility] Address:[address] [place], [place] [address]Performed By: #### 2885- 2, 2132-9, 2284-8 ####[facility] LABCLIA [id number] [place] [address] [place] AMERICACB W Auto Differential panel (Bld)on 45-94-1847Tfnimedsa (Bld) [#/Vol]10*3/uLNormal<0.11 [facility] on above:Order Comment: Specimen Type: BLOOD SPECIMEN [facility] Address: [address] [place], [place] [address]Performed By: #### 03395-0, 2275- #### [facility] CLIA [id number] [address] [place] [address] [place] AMERICABasophils/100 WBC (Bld)0.2 % [facility] on above:Order Comment: Specimen Type: BLOOD SPECIMEN [facility] Address: [address] [place], [place] [address]Performed By: #### 16528-1, 2276-02 #### [facility] CLIA [id number] [address] [place] [address] [place] AMERICADifferential cell count method Nom (Bld)AutoNormalCCleveland Clinic Marymount Hospital on above:Order Comment: Specimen Type: BLOOD SPECIMEN [facility] Address: [address] [place], [place] [address]Performed By: #### 08048-6, 2276-02 #### [facility] CLIA [id number] [address] [place] [address] [place] AMERICAEosinophils (Bld) [#/Vol] 0.12 10*3/uLNormal<0.46[facility] on above:Order Comment: Specimen Type: BLOOD SPECIMEN [facility] Address: [address] [place], [place] [address]Performed By: #### 70194-2, 2276-02 #### [facility] CLIA [id number] [address] [place] [address] [place] AMERICAEosinophils/100 WBC (Bld)2.3 %[facility] on above:Order Comment: Specimen Type: BLOOD SPECIMEN [facility] Address: [address] [place], [place] [address]Performed By: #### 88203-9, 2275-4 #### [facility] CLIA [id number] [address] [place] [address] [place] AMERICAErythrocyte distribution width (RBC) [Ratio]16.1 %High11.5-15.0[facility] on above:Order Comment: Specimen Type: BLOOD SPECIMEN [facility] Address: [address] [place], [place] [address]Performed By: #### 24367-9, 4 #### [facility] CLIA [id number] [address] [place] [address] [place] AMERICAHematocrit (Bld) [Volume fraction]30.4 %Low36.0-46.0[facility] on above:Order Comment: Specimen Type: BLOOD SPECIMEN [facility] Address: [address] [place], [place] [address]Performed By: #### 52614-2, 4 #### [facility] CLIA [id number] [address] [place] [address] [place] AMERICAHemoglobin (Bld) [Mass/Vol] 10.2 g/dLLow11.5-15.5CCleveland Clinic [facility] on above:Order Comment: Specimen Type: BLOOD SPECIMEN [facility] Address: [address] [place], [place] [address]Performed By: #### 93158-8, 2275-4 #### [facility] CLIA [id number] [address] [place] [address] [place] AMERICAImmature granulocytes (Bld) [#/Vol]10*3/uLNormal<0.10[facility] on above:Order Comment: Specimen Type: BLOOD SPECIMEN [facility] Address: [address] [place], [place] [address]Performed By: #### 73229-9, 2276-02 #### [facility] CLIA [id number] [address] [place] [address] [place] AMERICAImmature granulocytes/100 WBC (Bld)0.4 %NormalSelect Medical Specialty [facility] on above:Order Comment: Specimen Type: BLOOD SPECIMEN [facility] Address: [address] [place], [place] [address]Performed By: #### 79351-3, 2276-02 #### [facility] CLIA [id number] [address] [place] [address] [place] AMERICALymphocytes (Bld) [#/Vol] 1.31 10*3/uLNormal1.00-4.00[facility] on above:Order Comment: Specimen Type: BLOOD SPECIMEN [facility] Address: [address] [place], [place] [address]Performed By: #### 13670-1, 2276-02 #### [facility] CLIA [id number] [address] [place] [address] [place] AMERICALymphocytes/100 WBC (Bld) 24.8 %NormalSelect Medical Specialty [facility] on above:Order Comment: Specimen Type: BLOOD SPECIMEN [facility] Address: [address] [place] [address]Performed By: #### 50852-2, 2276-02 #### [facility] CLIA [id number] [address] [place] [address] [place] OF AMERICAMCH (RBC) [Entitic mass]29.6 qjMyexxw41.0-34.0[facility] on above:Order Comment: Specimen Type: BLOOD SPECIMEN Ordering Facility: [facility] Address: [address] [place], [place] [address]Performed By: #### 62053-7, 2276-02 #### [facility] CLIA [id number] [address] [place], [place] [address] [place] OF AMERICAMCHC (RBC) [Mass/Vol]33.6 g/nDNvaygj20.5-36.0[facility] on above:Order Comment: Specimen Type: BLOOD SPECIMEN Ordering Facility: [facility] Address: [address] [place], [place] [address]Performed By: #### 93801-5, 2276-02 #### [facility] CLIA [id number] [address] [place] [address] [place] OF AMERICAMCV (RBC) [Entitic vol]88.1 eWVxsvma54.0-100.0[facility] on above:Order Comment: Specimen Type: BLOOD SPECIMEN Ordering Facility: [facility] Address: [address] [place], [place] [address]Performed By: #### 32485-8, 2276-02 #### [facility] CLIA [id number] [address] [place] [address] [place] OF AMERICAMonocytes (Bld) [#/Vol]0.28 10*3/uLNormal<0.87[facility] on above:Order Comment: Specimen Type: BLOOD SPECIMEN Ordering Facility: [facility] Address: [address] [place], [place] [address]Performed By: #### 86822-0, 2276-02 #### [facility] CLIA [id number] [address] [place] [address] [place] AMERICAMonocytes/100 WBC (Bld)5.3 % NormalSelect [facility] on above:Order Comment: Specimen Type: BLOOD SPECIMEN Ordering Facility: [facility] Address: [address] [place], [place] [address]Performed By: #### 42901-9, 2276-02 #### [facility] CLIA [id number] [address] [place] [address] [place] OF AMERICANeutrophils (Bld) [#/Vol] 3.54 10*3/uLNormal1.45-7.50[facility] on above:Order Comment: Specimen Type: BLOOD SPECIMEN Ordering Facility: [facility] Address: [address] [place], [place] [address]Performed By: #### 00493-8, 6-4 #### [facility] CLIA [id number] [address] [place] [address] [place] AMERICANeutrophils/100 WBC (Bld) 67.0 %NormalSelect Medical Specialty [facility] [place] on above:Order Comment: Specimen Type: BLOOD SPECIMEN Ordering Facility: [facility] Address: [address] [place], [place] [address]Performed By: #### 18481-3, 2275-4 #### [facility] CLIA [id number] [address] [place] [address] [place] OF AMERICANucleated RBC (Bld) [#/Vol] 10*3/uLNormal<0.01[facility] on above:Order Comment: Specimen Type: BLOOD SPECIMEN Ordering Facility: [facility] Address: [address] [place], [place] [address]Performed By: #### 94454-5, 2275-4 #### [facility] CLIA [id number] [address] [place] [address] [place] OF AMERICANucleated RBC/100 WBC (Bld) [Ratio]0.0 /100 WBCNormalCCleveland Clinic Marymount Hospital on above:Order Comment: Specimen Type: BLOOD SPECIMEN Ordering Facility: [facility] Address: [address] [place], [place] [address]Performed By: #### 00113-2, 2275-4 #### [facility] CLIA [id number] [address] [place] [address] [place] OF AMERICAPlatelet mean volume (Bld) [Entitic vol]9.1 fLNormal9.0-12.7CCleveland Clinic [facility] Hospital on above: Order Comment: Specimen Type: BLOOD SPECIMEN Ordering Facility: [facility] Address: [address] [place], [place] [address]Performed By: #### 08734-7, 6-4 #### [facility] CLIA [id number] [address] [place] [address] OF AMERICAPlatelets (Bld) [#/Vol]136 10*3/hJVjq756-932DvjzitapvSelect Medical Specialty Hospital [facility] on above:Order Comment: Specimen Type: BLOOD SPECIMEN Ordering Facility: [facility] Address: [address] [place], [place] [address]Performed By: #### 67954-3, 2275-4 #### [facility] CLIA [id number] [address] [place], [place] [address]RBC (Bld) [#/Vol]3.45 10*6/uLLow3.90-5.20[facility] on above:Order Comment: Specimen Type: BLOOD SPECIMEN Ordering Facility: [facility] Address: [address] [place], [place] [address]Performed By: #### 11469-5, 2275-4 #### [facility] CLIA [id number] [address] [place], [place] [address]WBC (Bld) [#/Vol]5.28 10*3/uLNormal3.70-11.00[facility] on above:Order Comment: Specimen Type: BLOOD SPECIMEN Ordering Facility: [facility] Address: [address] [place], [place] [address]Performed By: #### 06071-1, 2275-4 #### [facility] CLIA [id number] [address] [place] [address] [place] OF AMERICACNOVSPon 36-90-4790XYJFEK Visit (SP) Office (HEMASA) ANH TEJEDA ([id number]) 1950 F Date Time Provider Department 04/07/25 2:00 PM DAKSHA BRIDGES During your visit today, we recorded the following information about you: Temperature Pulse Respiration Blood pressure 97 degrees 74/minute 18/minute 130/69 Weight Height 101.1 kg 1.58 m Daksha Bridges PA-C 04/07/2025 2:52 PM Signed Hematology Progress Note PATIENT NAME: Anh Tejeda CLINIC NO.: [id number] ATTENDING PHYSICIAN: Henry Walker MD DATE OF [...] for prolonged bleeding, bruising (more content not included)...NormalBucyrus Community HospitalComprehensive metabolic 2000 panelon 10-25-2084Zggpgca [Mass/Vol]4.0 g/dLNormal3.9-4.9CC[facility] Clinic [facility] on above:Order Comment: Specimen Type: BLOOD SPECIMENOrdering Facility: [facility] Address:[address] [place], [place] [address]Performed By: #### 25484-6 ####[facility]IA [id number] [place], [place] [address]FDC [Catalytic activity/Vol]141 U/PXxmq00-312FbgrbfdjoSelect Medical Specialty [facility] on above:Order Comment: Specimen Type: BLOOD SPECIMENOrdering Facility: [facility] Address:[address] [place], [place] [address]Performed By: #### 84299-7 ####[facility] LABCLIA [id number] [place] [address] ALT [Catalytic activity/Vol]15 U/LNormal7-38[facility] on above:Order Comment: Specimen Type: BLOOD SPECIMENOrdering Facility: [facility] Address:[address] [place], [place] [address]Performed By: #### 43036-4 ####[facility]ENTERZANDRA [facility] LABCLIA [id number] [place] GARCIABANNER PA[facility] [address]Vwopl gap [Moles/Vol]10 mmol/LNormal8-15[facility] on above:Order Comment: Specimen Type: BLOOD SPECIMENOrdering Facility: [facility] Address:[address] [place], [place] [address]Performed By: #### 18905-7 ####[facility] LABCLIA [id number] [place] GONZALESBANNER PAYSON MEDICAL CENTERRITOV[place], [place] [address]YKJ [Catalytic activity/Vol]17 U/GVjbnth99-87TbifycmlaSelect Medical Specialty Hospital [facility] on above:Order Comment: Specimen Type: BLOOD SPECIMENOrdering Facility: [facility] Address:[address] [place], [place] [address]Performed By: #### 79746-7 ####[facility] LABCLIA [id number] [facility] [place] [address] Bilirubin [Mass/Vol]0.7 mg/dLNormal0.2-1.3CCleveland Clinic [facility] Hospital on above:Order Comment: Specimen Type: BLOOD SPECIMENOrdering Facility: [facility] Address:[address] [place], [place] [address]Performed By: #### 18620-1 ####[facility] LABCLIA [id number] [place] [address]Vdxdiqo [Mass/Vol]9.3 mg/dLNormal8.5-10.2CCleveland Clinic [facility] Hospital on above:Order Comment: Specimen Type: BLOOD SPECIMENOrdering Facility: [facility] Address:[address] [place], [place] [address]Performed By: #### 06501-1 ####[facility] LABCLIA [id number] [address] JANETBANNER PAYSON MEDICAL CENTERRITOV[place], [place] [address]Vzknmuvv [Moles/Vol]105 mmol/IDpnbbh53-294AmbzebnqhSelect Medical Specialty [facility] on above: Order Comment: Specimen Type: BLOOD SPECIMENOrdering Facility: [facility] Address:[address] [place], [place] [address]Performed By: #### 98965- 8 ####[facility] LABCLIA [id number] [place], [place] [address]DZ9 [Moles/Vol]26 mmol/BUbnrwi01-38AomfeejinSelect Medical Specialty Hospital [facility] on above:Order Comment: Specimen Type: BLOOD SPECIMENOrdering Facility: [facility] Address:[address] [place], [place] [address]Performed By: #### 82325-4 ####[facility] LABCLIA [id number] [place], [place] [address]Butoguyyrh [Mass/Vol]1.16 mg/dL High0.58-0.96[facility] on above:Order Comment: Specimen Type: BLOOD SPECIMENOrdering Facility: [facility] Address:[address] [place], [place] [address]Performed By: #### 06373-8 ####[facility] LABIA [id number] [place] [address] Creatinine and Glomerular filtration rate.predicted panel (S/P/Bld)49 mL/min/1.73m???Low>=60[facility] on above:Order Comment: Specimen Type: BLOOD SPECIMENOrdering Facility: [facility] Address:[address] [place], [place] [address]Result Comment: Estimated Glomerular Filtration Rate (eGFR) is calculated using the 2020 CKD-EPI creatinine equation. This equation utilizes serum creatinine, sex, and age as parameters. The creatinine assay has traceable calibration to isotope dilution-mass spectrometry. Refer to KDIGO guidelines for clinical interpretation. In patients with unstable renal function, e.g. those with acute kidney injury, the eGFR may not accurately reflect actual GFR.Performed By: #### 13179-7 ####[facility] LABIA [id number] [place] [address] Glucose [Mass/Vol]186 mg/cFDwvr33-07RowoyneawSelect Medical Specialty Hospital [facility] on above: Order Comment: Specimen Type: BLOOD SPECIMENOrdering Facility: [facility] Address:[address] [place], [place] [address]Result Comment: The [place] Diabetes Association (ADA) provides guidance for cutoff values for fast ing glucose and random glucose. The ADA defines [...] Standards of Medical Care in Diabetes 2016, [place] [employer]. Diabetes Care. 2016.39(Suppl 1).Performed By: #### 08781-4 ####[facility] LABCLIA [id number] [place], [place] [address]Gxdwjvwbo [Moles/Vol]5.0 mmol/LNormal3.7-5.1CCleveland Clinic [facility] Hospital on above:Order Comment: Specimen Type: BLOOD SPECIMENOrdering Facility: [facility] Address:[address] [place], [place] [address]Performed By: #### 99282-7 ####[facility] LABCLIA [id number] [place], [place] [address]Izzwlyp [Mass/Vol]6.0 g/dLLow6.3-8.0[facility] on above:Order Comment: Specimen Type: BLOOD SPECIMENOrdering Facility: [facility] Address:[address] [place], [place] [address]Performed By: #### 91499- 8 ####[facility] LABCLIA [id number] [place], [place] [address]Raqkoh [Moles/Vol]141 mmol/BLqrsus566-834RlwrlpcbiSelect [facility] on above:Order Comment: Specimen Type: BLOOD SPECIMENOrdering Facility: [facility] Address:[address] [place], [place] [address]Performed By: #### 73694-7 ####[facility]ENTERZANDRA [facility] LABCLIA [id number] [place], [place] [address]Keww nitrogen [Mass/Vol]41 mg/dLHigh7-21[facility] on above:Order Comment: Specimen Type: BLOOD SPECIMENOrdering Facility: [facility] Address:[address] [place], [place] [address]Performed By: #### 17769-3 ####[facility] LABCLIA [id number] [place] [address] Ferritin SerPl-mCncon 45-08-5459Auicoubs [Mass/Vol]363.0 ng/vOEmmm29.7-205.1 [facility] on above:Order Comment: Specimen Type: BLOOD SPECIMENOrdering Facility: [facility] Address:[address] [place], [place] [address]Performed By: #### 2276-4, 70254-2 ####[facility] LABCLIA [id number] [place] [address] [place] OF AMERICAIron and Iron binding capacity panelon 08-59-8046Nklq [Mass/Vol]81 ug/dUUczslr64-294FyqzmnawpSelect Medical Specialty [facility] on above:Order Comment: Specimen Type: BLOOD SPECIMENOrdering Facility: [facility] Address:[address] [place], [place] [address]Performed By: #### 2276- 4, 66157-1 ####[facility] LABCLIA [id number] [facility] [place] [address] [place] AMERICAIron binding capacity [Mass/Vol]342 ug/fXOviitr371-813QmezrnpikSelect Medical Specialty [facility] on above:Order Comment: Specimen Type: BLOOD SPECIMENOrdering Facility: [facility] Address:[address] [place], [place] [address]Performed By: #### 2276- 4, 43829-2 ####[facility] LABCLIA [id number] [place] [address] [place] AMERICAIron/TIBC [Molar ratio] 23.7 %Hwilpa65.0-57.0[facility] on above:Order Comment: Specimen Type: BLOOD SPECIMENOrdering Facility: [facility] Address:[address] [place], [place] [address]Performed By: #### 2276-4, 01014-1 ####[facility] LABCLIA [id number] [address] STATES OF [facility]ITALRetics #on 04-07-2025 Reticulocytes (Bld) [#/Vol]0.12366 10*3/uLHigh0.018-0.100[facility] on above:Order Comment: Specimen Type: BLOOD SPECIMEN [facility] Address: [address] [place], [place] [address]Performed By: #### 23483-0, 2276-4 #### [facility] CLIA [id number] [address] [place] [address] STATES OF AMERICAReticulocytes (Bld) [#/Vol] on 38-60-7578Yqrqjymmhkadd/100 RBC (Bld)3.8 %High0.4-2.0[facility] on above:Order Comment: Specimen Type: BLOOD SPECIMEN [facility] Address: [address] [place], [place] [address]Performed By: #### 32594-9, 2276-4 #### [facility] CLIA [id number] [address] [place] [address] [place] AMERICAAmbulatory Visit Summaryon 37-66-1707Dqcgjwonqi Visit SummaryAmbulatory Visit Summary ANH TEJEDA :1950 Visit Date:03/30/2025 [...] mg Cap) glimepiride (glimepiride 2 mg Tab) hydrochlorothiazide-lisinopril (hydrochlorothiazide-lisinopril 12.5 mg-20 mg Tab) loratadine (Claritin) omeprazole (omeprazole 20 mg Cap-DR) pioglitazone (pioglitazone 15 mg Tab) resmetirom (Rezdiffra 80 mg oral tablet) ropinirole (ropinirole 0.5 mg Tab) sitagliptin (Januvia 50 mg Tab) Procedures Performed Carpal tunnel (02/29/2024), Colonoscopy (06/12/2022), Esophagogastroduodenoscopy (06/12/2022), Scarmanagement. Discharge Vitals Heart Rate (Peripheral) 67 Blood Pressure 119/73 Height 160 cm Height 63 in Weight 100.6 kg Weight 221.785 lb BMI 39.3 Medications What How Much When Instructions Unchanged allopurinol (allopurinol 100 mg Tab) 1 Tablets By Mouth 2 times a day Contact prescribingphysician if questions or concerns Unchanged ascorbic acid (ascorbic acid 500 mg Tab) 1 Tablets By Mouth Every day Contact prescribingphysician if questions or concerns Unchanged aspirin (aspirin [...] prescribing physician if questions or concerns Unchanged hydrochlorothiazide-lisinopril (hydrochlorothiazide-lisinopril 12.5 mg-20 mg Tab) 1 Tablets By [...] you for choosing us for your care. [facility] HospitalGastro[facility] Office/Clinic Noteon 66-47-7532Waxypkoiokbpdjpz Office/Clinic NoteGastroenterology Office/Clinic Note Chief Complaint Review lab results [...] 84.5 fL (03/27/25) Chloride: 104 mmol/L (03/27/25) [place] Absolute: 0.3 E9/L (03/27/25) CO2: 28 mmol/L (03/27/25) [place] Auto: 6.4 % (03/27/25) Creatinine: 1.2 mg/dL [...] IgG: <2 (01/28/24) Histor (more content not included)...NormalParkview Health Montpelier HospitalComment on above:Result Comment: Electronically Signed By: Shanel DONG, Verónica Guadalupe\Date and Time Signed: 03/30/2510:12 EDTAFPon 77-53-4812EBG.tumor marker [Mass/Vol] ng/mLInvalid Interpretation Code0.0-9.2FOhioHealth Dublin Methodist HospitalComment on above:Result Comment: [employer] Electrochemiluminescence Immunoassay (ECLIA) Values obtained with different assay methods or kits cannot be used interchangeably. Results cannot be interpreted as absolute evidence of the presence or absence of malignant disease. This test is not interpretable in females. Performed at: Lab[address] [id number] PhD Isma BanksPerformed By: #### [id number] #### [facility] [address] [place], [place] [address]LXC w/ Auto Diffon 89-49-4626Mhiyqnnne/100 WBC (Bld)0.4 %Normal 0.0-2.0[facility] Montpelier HospitalComment on above:Performed By: #### 0552545 #### [facility] [address] [place], [place] [address]Qybgcmpxx/Leukocytes Auto (Bld) [Pure # fraction]0.0 E9/LNormal 0.0-0.2FOhioHealth Dublin Methodist HospitalComment on above:Performed By: #### [id number] #### [facility] [address] [place], [place] [address]Kohmmtbsfpu (Bld) [#/Vol]0.1 E9/LNormal0.0-0.5FOhioHealth Dublin Methodist HospitalComment on above:Performed By: #### [id number] #### [facility] [address] [place], [place] [address]Efubzfitmss/100 WBC (Bld)1.9 %Normal0.0-8.0[facility] HospitalComment on above:Performed By: #### [id number] #### [facility] [address] [place] [address]Uczqrfowclg distribution width (RBC) [Ratio]16.3 %High10.9-14.2 [facility]pelier HospitalComment on above:Performed By: #### 1396118 #### [facility] [address] [place] [address]Cdqwhuocbj (Bld) [Volume fraction]32.7 %Low34.0-46.0[facility] HospitalComment on above:Performed By: #### [id number] #### [facility] [address] [place] [address]Jinrnjimgq (Bld) [Mass/Vol]11.4 g/dLLow12.0-16.0[facility] HospitalComment on above:Performed By: #### [id number] #### [facility] [address] [place] [address]Hdvcnouylgx (Bld) [#/Vol]1.4 E9/LNormal1.0-4.0[facility] HospitalComment on above:Performed By: #### [id number] #### [facility] [address] [place] [address]Levvfrmsclg/100 WBC (Bld)28.3 %Sptsrh54.0-50.0[facility] HospitalComment on above:Performed By: #### [id number] #### [facility] [address] [place] [address]OZC (RBC) [Entitic mass]29.5 kaUmjgwq66.0-34.0[facility] HospitalComment on above:Performed By: #### [id number] #### [facility] [address] [place] [address]YYGS (RBC) [Mass/Vol]34.9 g/uOLpmfpe93.4-36.0[facility] HospitalComment on above:Performed By: #### 5493958 #### [facility] [address] [place] [address]OME (RBC) [Entitic vol]84.5 xNNvmwim14.0-100.0[facility] HospitalComment on above:Performed By: #### [id number] #### [facility] [address] [place] [address]Pwrxjqych (Bld) [#/Vol]0.3 E9/LNormal0.2-1.0[facility] HospitalComment on above:Performed By: #### [id number] #### [facility] [address] [place] [address]Vkoihkwpzwu (Bld) [#/Vol]3.1 E9/LNormal2.0-7.5FOhioHealth Dublin Methodist HospitalComment on above:Performed By: #### [id number] #### [facility] [address] [place] [address]Lueqlhageim/100 WBC (Bld)63.0 %Eymunq68.0-75.0[facility] HospitalComment on above:Performed By: #### [id number] #### [facility] [address] [place] [address]Bxjzcrhs mean volume (Bld) [Entitic vol]7.2 fLNormal6.4-10.8 [facility] HospitalComment on above:Performed By: #### [id number] #### [facility] [address] [place] [address]Yysazrwrl (Bld) [#/Vol]139.0 E9/IOxt122.0-500.0[facility] HospitalComment on above:Performed By: #### [id number] #### [facility] [address] [place] [address]IJU (Bld) [#/Vol]3.9 E12/LLow4.3-5.9[facility] Comment on above:Performed By: #### [id number] #### [facility] [address] [place], [place] [address]KNW corrected for nucl RBC Auto (Bld) [#/Vol]4.9 E9/LNormal 4.0-11.0[facility] Hospitaler [facility]rieger InstituteComment on above:Performed By: #### [id number] #### [facility] [address] [place], [place] [address]WUORKQLGQXbmbgun By: SYSTEM SYSTEM on 93-11-5054Wogzyzu [Mass/Vol]4.0 g/dLNormal3.3 - 5.0 gm/dLRemisol ChemAlbumin/Globulin [Mass ratio] 1.7 {ratio}Normal1.1 - 2.2Remisol ChemALP [Catalytic activity/Vol]133 [iU]/dHigh 21 - 98 Int._Unit/LRemisol ChemALT No additional P-5'-P [Catalytic activity/Vol] 20 [iU]/dNormal6 - 46 Int._Unit/LRemisol ChemAnion gap [Moles/Vol]12 mmol/L Normal6 - 16 mEq/LRemisol ChemAST [Catalytic activity/Vol]17 [iU]/dNormal5 - 43 Int._Unit/LRemisol ChemBilirubin [Mass/Vol]0.6 mg/dLNormal0.0 - 1.1 mg/dLRemisol ChemCalcium [Mass/Vol]9.0 mg/dLNormal8.9 - 11.1 mg/dLRemisol ChemChloride [Moles/Vol]104 mmol/HFedpzf789 - 111 mmol/LRemisol ChemCO2 [Moles/Vol]28 mmol/L Yurcuf09 - 31 mmol/LRemisol ChemCreatinine [Mass/Vol]1.2 mg/dLNormal0.5 - 1.3 mg/dLRemisol GmdwtCII23 mL/min/1.73 m2Low>=59mL/min/1.73 x6Muteabo ChemGlobulin (S) [Mass/Vol]2.3 g/dLNormal1.4 - 4.0 gm/dLRemisol ChemGlucose [Mass/Vol]155 mg/wZAiywrz44 - 199 mg/dLRemisol ChemPotassium [Moles/Vol]4.3 mmol/LNormal3.5 - 5.3 mmol/LRemisol ChemProtein [Mass/Vol]6.3 g/dLNormal6.0 - 7.8 gm/dLRemisol ChemSodium [Moles/Vol]140 mmol/LMtqgdn889 - 145 mmol/LRemisol ChemUrea nitrogen [Mass/Vol]36 mg/dLHigh5 - 21 mg/dLRemisol ChemUrea nitrogen/Creatinine [Mass ratio]30 mg/ihTyal33 - 20Remisol ChemCMPon 40-31-9288Iujhvzw [Mass/Vol]4.0 g/dL Normal3.3-5.0[facility] HospitalComment on above:Performed By: #### [id number] #### [facility] [address] [place] [address]Skugall/Globulin (S) [Mass conc ratio]1.7Hwhfto0.1-2.2FOhioHealth Dublin Methodist HospitalComment on above:Performed By: #### [id number] #### [facility] [address] [place] [address] 226[address]HMT [Catalytic activity/Vol]133 Int._Unit/SVeds05-48VxercsParkview Health Montpelier HospitalComment on above:Performed By: #### [id number] #### [facility] [address] [place] [address]WVJ No additional P-5'-P [Catalytic activity/Vol]20 Int._Unit/L Normal6-46[facility] HospitalComment on above:Performed By: #### [id number] #### [facility] [address] [place] [address]Wzrbu gap [Moles/Vol]12 mmol/LNormal6-16[facility] HospitalComment on above:Performed By: #### [id number] #### [facility] [address] [place] [address]LGX [Catalytic activity/Vol]17 Int._Unit/LNormal5-43[facility] HospitalComment on above:Performed By: #### [id number] #### [facility] [address] [place] [address]Exwiowdsh [Mass/Vol]0.6 mg/dLNormal0.0-1.1FOhioHealth Dublin Methodist HospitalComment on above:Performed By: #### 5863082 #### [facility] [address] [place], [place] [address]Edsvxli [Mass/Vol]9.0 mg/dLNormal8.9-11.1FOhioHealth Dublin Methodist HospitalComment on above:Performed By: #### [id number] #### [facility] [address] [place], [place] [address]Fscjfpxj [Moles/Vol]104 mmol/GBvfmjc008-135RebkrgParkview Health Montpelier HospitalComment on above:Performed By: #### [id number] #### [facility] [address] [place], [place] [address]ZU9 [Moles/Vol]28 mmol/GXzzxvz29-47PrwvibParkview Health Montpelier Hospital Comment on above:Performed By: #### [id number] #### [facility] [address], [place] [address]Hgurhcurwa [Mass/Vol]1.2 mg/dLNormal0.5-1.3FOhioHealth Dublin Methodist HospitalComment on above:Performed By: #### [id number] #### [facility] [address], [place] [address]Qgylrvbr (S) [Mass/Vol]2.3 g/dLNormal1.4-4.0Park[facility] Montpelier HospitalComment on above:Performed By: #### [id number] #### [facility] [address], [place] [address]Nwkaqbh [Mass/Vol]155 mg/vQXttiuk50-971CjlersParkview Health Montpelier HospitalComment on above:Performed By: #### [id number] #### [facility] [address], [place] [address]Kebacugwu [Moles/Vol]4.3 mmol/LNormal3.5-5.3FOhioHealth Dublin Methodist HospitalComment on above:Performed By: #### [id number] #### [facility] [address], [place] [address]Vbyihno [Mass/Vol]6.3 g/dLNormal6.0-7.8Park[facility] Montpelier HospitalComment on above:Performed By: #### [id number] #### [facility] [address], [place] [address]Ycdesu [Moles/Vol]140 mmol/FNszful826-030BakhvlParkview Health Montpelier HospitalComment on above:Performed By: #### [id number] #### [facility] [address], [place] [address]Zbtw nitrogen [Mass/Vol]36 mg/dLHigh5-21Park[facility] Montpelier HospitalComment on above:Performed By: #### [id number] #### [facility] [address], [place] [address]Hetk nitrogen/Creatinine [Mass ratio]30 No GueuaMicu16-22EcqnpoParkview Health Montpelier HospitalComment on above:Performed By: #### [id number] #### [facility] [address], [place] [address]SXLRMZFKGZADgmykay By: Karlie Gomez on 35-79-0025oOLU Coag (PPP) [Time]35.5 iIvthvt43.1 - 36.5 second(s)[facility] Auto CoagComment on above: Interpretive Data: Parameter 15 days - 4 weeks 1 - [...] the same coagulation reagent and instrumentation as [facility]. Currently there are no coagulation studies available worldwide for children to 14 days, andno normal ranges. Heparin therapeutic range (represented by Anti-Factor Xa activity of 0.2 - 0.4 U/mL) corresponds to PTT of 56.6 - 109.0 sec.INR Coag (PPP) [Relative time]1.05 {INR}Invalid Interpretation CodePAWHUSKA HOSPITAL – [place]WH[facility]KA Auto CoagComment on above:Interpretive Data: INR results are specifically intended to assess patients stabilized on long-term Anticoagulation therapy suggested INR s Less Intensive Anticoagulation 2.0 3.0 Conventional Range 3.0 4.5PT Coag (PPP) [Time]11.8 sNormal9.4 - 12.5 second(s) [facility] Auto CoagComment on above:Interpretive Data: 15 days - 4 weeks 1 - [...] the same coagulation reagent and instrumentation as [facility]. Currently there are no coagulation studies available worldwide for children to 14 days, andno normal ranges.HEMATOLOGYOrdered By: SYSTEM SYSTEM on 72-24-8532Qxnffrvsv/100 WBC (Bld)0.4 %Normal0.0 - 2.0 %Remisol HemeBasophils/Leukocytes Auto (Bld) [Pure # fraction]0.0 E9/LNormal0.0 - 0.2 E9/LRemisol HemeEosinophils (Bld) [#/Vol]0.1 E9/LNormal0.0 - 0.5 E9/LRemisol HemeEosinophils/100 WBC (Bld)1.9 %Normal0.0 - 8.0 %Remisol HemeErythrocyte distribution width (RBC) [Ratio]16.3 %High10.9 - 14.2 %Remisol HemeHematocrit (Bld) [Volume fraction]32.7 %Low34.0 - 46.0 % Remisol HemeHemoglobin (Bld) [Mass/Vol]11.4 g/dLLow12.0 - 16.0 gm/dLRemisol Heme Lymphocytes (Bld) [#/Vol]1.4 E9/LNormal1.0 - 4.0 E9/LRemisol HemeLymphocytes/100 WBC (Bld)28.3 %Hkhzne35.0 - 50.0 %Remisol HemeMCH (RBC) [Entitic mass]29.5 pg Txbtjj13.0 - 34.0 pgRemisol HemeMCHC (RBC) [Mass/Vol]34.9 g/qMZfcoco45.4 - 36.0 gm/dLRemisol HemeMCV (RBC) [Entitic vol]84.5 lILfolga60.0 - 100.0 fLRemisol Heme Monocytes (Bld) [#/Vol]0.3 E9/LNormal0.2 - 1.0 E9/LRemisol HemeMonocytes/100 WBC (Bld)6.4 %Normal4.0 - 14.0 %Remisol HemeNeutrophils (Bld) [#/Vol]3.1 E9/LNormal 2.0 - 7.5 E9/LRemisol HemeNeutrophils/100 WBC (Bld)63.0 %Llwwha35.0 - 75.0 % Remisol HemePlatelet mean volume (Bld) [Entitic vol]7.2 fLNormal6.4 - 10.8 fL Remisol HemePlatelets (Bld) [#/Vol]139.0 E9/HNyw920.0 - 500.0 E9/LRemisol Heme RBC (Bld) [#/Vol]3.9 E12/LLow4.3 - 5.9 E12/LRemisol HemeWBC corrected for nucl RBC Auto (Bld) [#/Vol]4.9 E9/LNormal4.0 - 11.0 E9/LRemisol HemePT & PTTon 94-76-3237mKDQ Coag (PPP) [Time]35.5 second(s)Evrada56.1-36.5Fisher [facility] Krieger InstituteComment on above:Result Comment: Parameter 15 days - 4 weeks 1 - [...] the same coagulation reagent and instrumentation as [facility]. Currently there are no coagulation studies available worldwide for children to 14 days, andno normal ranges. Heparin therapeutic range (represented by Anti-Factor Xa activity of 0.2 - 0.4 U/mL) corresponds to PTT of 56.6 - 109.0 sec.Performed By: #### [id number] #### [facility] [address], [place] [address]HSX Coag (PPP) [Relative time]1.05 {INR}Invalid Interpretation CodeParkview Health Montpelier HospitalComment on above:Result Comment: INR results are specifically intended to assess patients stabilized on long-term Anticoagulation therapy suggested INR???s ???Less Intensive Anticoagulation??? 2.0 ??? 3.0 Conventional Range 3.0 ??? 4.5Performed By: #### [id number] #### [facility] [address], [place] [address]EV Coag (PPP) [Time]11.8 second(s)Normal9.4-12.5Fisher Kennedy Krieger InstituteComment on above:Result Comment: 15 days - 4 weeks 1 - [...] the same coagulation reagent and instrumentation as [facility]. Currently there are no coagulation studies available worldwide for children to 14 days, andno normal ranges.Performed By: #### [id number] #### [facility] [address], [place] [address]pZEIjc 51-50-6019wGLH70 mL/min/1.73 m2Low>=59Parkview Health Montpelier HospitalComment on above:Performed By: #### [id number] #### [facility] [address], [place] [address]Bwwdhwyvgyo 66-91-5957RveybbtwlXzclejwhe From: Ellyn Copeland To: Lauren Day; Ellyn Copeland; Sent: 09/30/2024 13:06:26 EST Show up: 01/28/2025 14:06:00 EDT Subject: Ambulatory Reminder Due Date/Time: 02/28/2025 14:06:00 EDT Reminder Please call patient to schedule Fibroscan for 03-10 Patient is [facility]25[facility] 28-59-0062CC lumbar spine wo [facility] Main [place] [id number] MRI Report Signed Patient: Anh Tejeda MR#: [id number] : 1950 Acct:[id number] Age/Sex: 74 / F ADM Date: 02/08/25 Loc: [facility] Room: Type: [facility] Attending Dr: Tessy Bruner MD Copies to: [...] severe facet arthropathy. Moderate central canal stenosis. Wzyu-ip-ppxslhxj bilateral neural foraminal narrowing. Mild crowding of [...] associated with severe right-sided and moderate severe left- sided facet arthropathy. This causes severe right neural [...] Narendra Guaman M.D.02/08/2025 2:29 PM Dictation Location: [place] [address] Transcribed By: [facility] 02/08/25 1429 Dictated By: Narendra Guaman MD 02/08/25 1337 Signed By: 02/08/25 1429[facility] Physician GroupPagnetic resonance imaging reportOrdered By: Narendra Guaman on 30-16-5453Wwdkv reportHENRY COUNTY H[facility] [place] [address] [place] [address] MRI Report Signed Patient: Anh Tejeda MR#: [id number] : 1950 Acct:[id number] Age/Sex: 74 / F ADM Date: 5 Loc: [facility] Room: Type: [facility] Attending Dr: Tessy Bruner MD Copies to: [...] disease L4-5 and L5-S1. Moderate disc disease O79-L8hdh mild disc disease at L3-L4. The conus [...] severe facet arthropathy. Moderate central canal stenosis. Sriv-cw-hwfvdszd bilateral neural foraminal narrowing. Mild crowding of the subarticular zone zones. L4-5: Circumferential disc osteophyte complex with apparent asymmetric towards the right with bulkyright foraminal zone and far lateral zone component. Thereis associated with moderate severe facet arthropathy with facet joint effusions. There is moderate severe right-sided and moderate left-sidedneural foraminal narrowing. Severe subarticular zone effacement the [...] Narendra Guaman M.D.02/08/2025 2:29 PM Dictation Location: [place] [address] Transcribed By: MT 02/08/25 0978 Dictated By: Narendra Guaman MD 02/08/25 9406 Signed By: 02/08/25 8251 [facility] Work Phone: cb W Auto Differential panel (Bld)on 01-06-2025 Basophils (Bld) [#/Vol]10*3/uLNormal<0.11CCleveland Clinic [facility]mount Hospital on above:Order Comment: Specimen Type: BLOOD SPECIMENOrdering Facility: [facility] Address:[address] [place], [place] [address]Performed By: #### 15642-6, 55131-6 ####[facility] LABCLIA [id number] [place], [place] [address]Pkqyeckdc/100 WBC (Bld)0.2 %NormalSelect Medical Specialty Hospital - [facility] on above:Order Comment: Specimen Type: BLOOD SPECIMENOrdering Facility: [facility] Address:[address] [place], [place] [address]Performed By: #### 84729-4, 72957-0 ####[facility] LABCLIA [id number] [place] [address] Differential cell count method Nom (Bld)AutoNormalClevelLake Norman Regional Medical Center Comment on above:Order Comment: Specimen Type: BLOOD SPECIMENOrdering Facility: [facility] Address:[address] [place] [address] Performed By: #### 50513-0, 48898-8 ####[facility] LABCLIA [id number] [place], [place] [address]Wghykbubthu (Bld) [#/Vol]0.11 10*3/uLNormal<0.46[facility] on above:Order Comment: Specimen Type: BLOOD SPECIMENOrdering Facility: [facility] Address:[address] [place], [place] [address]Performed By: #### 64558- 0, 76286-9 ####[facility] LABCLIA [id number] [place], [place] [address]Vualemjtgcr/100 WBC (Bld)2.0 %[facility] on above:Order Comment: Specimen Type: BLOOD SPECIMENOrdering Facility: [facility] Address:[address] [place], [place] [address]Performed By: #### 24642-3, 56569-3 ####[facility] LABIA [id number] [place] [address] Erythrocyte distribution width (RBC) [Ratio]15.8 %High11.5-15.0[facility] on above:Order Comment: Specimen Type: BLOOD SPECIMENOrdering Facility: [facility] Address:[address] [place], [place] [address]Performed By: #### 86623-6, 73016-1 ####[facility] LABIA [id number] [place], [place] [address]Brcwzjsgor (Bld) [Volume fraction]32.1 %Low36.0-46.0[facility] on above: Order Comment: Specimen Type: BLOOD SPECIMENOrdering Facility: [facility] Address:[address] [place], [place] [address]Performed By: #### 66863- 0, 79130-7 ####[facility] LABIA [id number] [place], [place] [address]Asspanmeap (Bld) [Mass/Vol]11.0 g/dLLow11.5-15.5 [facility] on above:Order Comment: Specimen Type: BLOOD SPECIMENOrdering Facility: [facility] Address:[address] [place], [place] [address]Performed By: #### 07537-2, 66340-2 ####[facility] LABIA [id number] [place], [place] [address]Aiorezgx granulocytes (Bld) [#/Vol]10*3/uLNormal<0.10[facility] on above:Order Comment: Specimen Type: BLOOD SPECIMENOrdering Facility: [facility] Address:[address] [place] [address] Performed By: #### 54065-8, 72008-1 ####[facility] LABCLIA [id number] [place], [place] [address]Ifixnqyv granulocytes/100 WBC (Bld)0.4 %NormalSelect Medical Specialty Hospital - [place] on above: Order Comment: Specimen Type: BLOOD SPECIMENOrdering Facility: [facility] Address:[address] [place], [place] [address]Performed By: #### 69725- 0, 51134-3 ####[facility] LABCLIA [id number] [place], [place] [address]Uudiriyvpdh (Bld) [#/Vol]1.45 10*3/uLNormal 1.00-4.00[facility] on above:Order Comment: Specimen Type: BLOOD SPECIMENOrdering Facility: [facility] Address:[address] [place], [place] [address]Performed By: #### 34121-8, 41488-0 ####[facility] LABCLIA [id number] [place], [place] [address]Pvjkrydtopn/100 WBC (Bld)27.0 %NormalSelect Medical Specialty Hospital - [place] on above:Order Comment: Specimen Type: BLOOD SPECIMENOrdering Facility: [facility] Address:[address] [place], [place] [address]Performed By: #### 41786-8, 95705-3 ####[facility] LABCLIA [id number] [place], [place] [address]VBP (RBC) [Entitic mass]30.0 naWjmnso13.0-34.0[facility] on above:Order Comment: Specimen Type: BLOOD SPECIMENOrdering Facility: [facility] Address:[address] [place], [place] [address]Performed By: #### 14336- 0, 95466-3 ####[facility] LABCLIA [id number] [place], [place] [address]LHRL (RBC) [Mass/Vol]34.3 g/vBRujrsp54.5-36.0 [facility] on above:Order Comment: Specimen Type: BLOOD SPECIMENOrdering Facility: [facility] Address:[address] [place], [place] [address]Performed By: #### 28881-1, 26672-1 ####[facility] LABCLIA [id number] [place], [place] [address]PLF (RBC) [Entitic vol]87.5 lCKrvbue86.0-100.0[facility] on above:Order Comment: Specimen Type: BLOOD SPECIMENOrdering Facility: [facility] Address:[address] [place], [place] [address]Performed By: #### 24608-1, 79444-7 ####[facility] LABCLIA [id number] [place], [place] [address]Ynxyfclon (Bld) [#/Vol]0.32 10*3/uLNormal <0.87[facility] on above:Order Comment: Specimen Type: BLOOD SPECIMENOrdering Facility: [facility] Address:[address] [place], [place] [address]Performed By: #### 29534-8, 69972-4 ####[facility] LABCLIA [id number] [place], [place] [address]Ufkebzaig/100 WBC (Bld)5.9 %NormalSelect Medical Specialty Hospital - [place] on above:Order Comment: Specimen Type: BLOOD SPECIMENOrdering Facility: [facility] Address:[address] [place], [place] [address]Performed By: #### 57692-2, 42641-7 ####[facility] LABCLIA [id number] [place], [place] [address]Dskqrshmmse (Bld) [#/Vol]3.47 10*3/uLNormal 1.45-7.50[facility] on above:Order Comment: Specimen Type: BLOOD SPECIMENOrdering Facility: [facility] Address:[address] [place], [place] [address]Performed By: #### 11435-2, 24550-6 ####[facility]ENTERZANDRA [facility] LABCLIA [id number] [place], [place] [address]Asyducolypr/100 WBC (Bld)64.5 %NormalSelect Medical Specialty Hospital - [place] on above:Order Comment: Specimen Type: BLOOD SPECIMENOrdering Facility: [facility] Address:[address] [place], [place] [address]Performed By: #### 49985-9, 06094-1 ####[facility]ENTERZANDRA [facility] LABIA [id number] [place], [place] [address]Aswhfqcha RBC (Bld) [#/Vol]10*3/uLNormal<0.01[facility] on above:Order Comment: Specimen Type: BLOOD SPECIMENOrdering Facility: [facility] Address:[address] [place], [place] [address]Performed By: #### 07646- 0, 73424-2 ####[facility]ENTERZANDRA [facility] LABIA [id number] [place], [place] [address]Yurfocaqt RBC/100 WBC (Bld) [Ratio]0.0 /100 WBC NormalSelect Medical Specialty Hospital [facility] [place] on above:Order Comment: Specimen Type: BLOOD SPECIMENOrdering Facility: [facility] Address:[address] [place], [place] [address]Performed By: #### 59603-9, 14068-5 ####[facility]ENTERZANDRA [facility] LABCLIA [id number] [place], [place] [address]Mzpdnuts mean volume (Bld) [Entitic vol]8.8 fLLow9.0-12.7CCleveland Clinic [facility] Hospital on above:Order Comment: Specimen Type: BLOOD SPECIMENOrdering Facility: [facility] Address:[address] [place], [place] [address]Performed By: #### 23786-2, 82782-5 ####[facility] LABCLIA [id number] [place], [place] [address]Tmmkgnsrg (Bld) [#/Vol]117 10*3/vESor614-906YvdutwfyzSelect Medical Specialty [facility] on above:Order Comment: Specimen Type: BLOOD SPECIMENOrdering Facility: [facility] Address:[address] [place], [place] [address]Performed By: #### 52918- 0, 20002-9 ####[facility] LABCLIA [id number] [place], [place] [address]OMT (Bld) [#/Vol]3.67 10*6/uLLow3.90-5.20[facility] on above:Order Comment: Specimen Type: BLOOD SPECIMENOrdering Facility: [facility] Address:[address] [place], [place] [address]Performed By: #### 38316-8, 80664-4 ####[facility]ITAL[facility] [id number] [place], [place] [address]LBZ (Bld) [#/Vol]5.38 10*3/uLNormal3.70-11.00[facility] on above:Order Comment: Specimen Type: BLOOD SPECIMENOrdering Facility: [facility] Address:[address] [place], [place] [address]Performed By: #### 78257-3, 56933-6 ####[facility] LABIA [id number] [place], [place] [address]EEWKOYnr 51-10-9508ZZQSLODbhrl (SP) Office (HEMASA) ANH TEJEDA ([id number]) 1950 F Date Time Provider Department 01/06/25 2:30 PM DAKSHA BRIDGES During your visit today, we recorded the following information about you: Temperature Pulse Respiration Blood pressure 97.8 degrees 80/minute 18/minute 132/72 Weight 96.6 kg Daksha Bridges PA-C 01/06/2025 2:38 PM Signed Hematology Progress Note PATIENT NAME: Anh Tejeda CLINIC NO.: [id number] ATTENDING PHYSICIAN: Henry Walker MD DATE OF [...] murmurs, rubs, or ga (more content not included)...NormalBucyrus Community HospitalComprehensive metabolic 2000 panelon 67-86-7798Ocbugkl [Mass/Vol]4.0 g/dLNormal3.9-4.9CC[facility] Comment on above:Order Comment: Specimen Type: BLOOD SPECIMENOrdering Facility: [facility] Address:[address] [place] [address] Performed By: #### 94205-1 ####[facility] LABCLIA [id number] [place] [address] [place] ALP [Catalytic activity/Vol]164 U/WTzme45-092OuepjfbjzSelect Medical Special[facility] on above:Order Comment: Specimen Type: BLOOD SPECIMENOrdering Facility: [facility] Address:[address] [place] [address] Performed By: #### 02766-8 ####[facility] LABCLIA [id number] [place] [address] [place] ALT [Catalytic activity/Vol]18 U/LNormal7-38[facility] Hospitalment on above:Order Comment: Specimen Type: BLOOD SPECIMENOrdering Facility: [facility] Address:[address] [place], [place] [address]Performed By: #### 58169-6 ####[facility] LABCLIA [id number] [place] [address] [place] AMERICAAnion gap [Moles/Vol] 11 mmol/LNormal8-15[facility] on above:Order Comment: Specimen Type: BLOOD SPECIMENOrdering Facility: [facility] Address:[address] [place], [place] [address]Performed By: #### 02284-8 ####[facility] LABCLIA [id number] [place] [address] [place] AMERICAAST [Catalytic activity/Vol]21 U/UAiohyd33-88ClkqzpnrbSelect Medical Specialty [facility] on above:Order Comment: Specimen Type: BLOOD SPECIMENOrdering Facility: [facility] Address:[address] [place], [place] [address]Performed By: #### 30970-5 ####[facility] LABCLIA [id number] [place] [address] [place] AMERICABilirubin [Mass/Vol]0.4 mg/dLNormal0.2-1.3CC[facility] on above:Order Comment: Specimen Type: BLOOD SPECIMENOrdering Facility: [facility] Address:[address] [place], [place] [address]Performed By: #### 73214-2 ####[facility] LABCLIA [id number] [place] [address] [place] AMERICACalcium [Mass/Vol]9.4 mg/dLNormal8.5-10.2CC[facility] Comment on above:Order Comment: Specimen Type: BLOOD SPECIMENOrdering Facility: [facility] Address:[address] [place] [address] Performed By: #### 88061-8 ####[facility] LABCLIA [id number] [place] [address] [place] Chloride [Moles/Vol]102 mmol/GJyejgr47-771UrzrmcygjSelect Medical Specialty [facility] on above:Order Comment: Specimen Type: BLOOD SPECIMENOrdering Facility: [facility] Address:[address] [place], [place] [address]Performed By: #### 14965-9 ####[facility] LABCLIA [id number] [place] [address] [place] AMERICACO2 [Moles/Vol]29 mmol/YIsnnjm68-38XufjphzydSelect Medical Specialty Hospital - [facility] on above:Order Comment: Specimen Type: BLOOD SPECIMENOrdering Facility: [facility] Address:[address] [place], [place] [address]Performed By: #### 04726-7 ####[facility] LABIA [id number] [place] [address] [place] AMERICACreatinine [Mass/Vol]1.27 mg/dL High0.58-0.96[facility] on above:Order Comment: Specimen Type: BLOOD SPECIMENOrdering Facility: [facility] Address:[address] [place], [place] [address]Performed By: #### 80666-5 ####[facility] LABIA [id number] [place] [address] [place] AMERICACreatinine and Glomerular filtration rate.predicted panel (S/P/Bld)44 mL/min/1.73m???Low>=60[facility] on above:Order Comment: Specimen Type: BLOOD SPECIMENOrdering Facility: [facility] Address:[address] [place], [place] [address]Result Comment: Estimated Glomerular Filtration Rate (eGFR) is calculated using the 2020 CKD-EPI creatinine equation. This equation utilizes serum creatinine, sex, and age as parameters. The creatinine assay has traceable calibration to isotope dilution- mass spectrometry. Refer to KDIGO guidelines for clinical interpretation. In patients with unstable renal function, e.g. those with acute kidney injury, the eGFR may not accurately reflect actual GFR.Performed By: #### 03781-8 ####[facility] LABIA [id number] [place] [address] [place] AMERICAGlucose [Mass/Vol]216 mg/dLHigh 74-99[facility] on above:Order Comment: Specimen Type: BLOOD SPECIMENOrdering Facility: [facility] Address:[address] [place], [place] [address]Result Comment: The [place] Diabetes Association (ADA) provides guidance for cutoff [...] Standards of Medical Care in Diabetes 2016, [place] [employer]. Diabetes Care. 2016.39(Suppl 1).Performed By: #### 20634-8 ####[facility] LABIA [id number] [place] [address] [place] AMERICAPotassium [Moles/Vol]4.0 mmol/L Normal3.7-5.1CC[facility] on above:Order Comment: Specimen Type: BLOOD SPECIMENOrdering Facility: [facility] Address:[address] [place], [place] [address]Performed By: #### 91413-0 ####[facility] [id number] [place] [address] [place] AMERICAProtein [Mass/Vol]6.4 g/dLNormal6.3-8.0[facility] on above:Order Comment: Specimen Type: BLOOD SPECIMENOrdering Facility: [facility] Address:[address] [place], [place] [address]Performed By: #### 68956-9 ####[facility] LABIA [id number] [place] [address] [place] Sodium [Moles/Vol]142 mmol/MRjjowa898-602RosaoflyhSelect Medical Specialty [facility] [place] on above:Order Comment: Specimen Type: BLOOD SPECIMENOrdering Facility: [facility] Address:[address] [place], [place] [address]Performed By: #### [id number] ####[facility] [id number] [place] [id number] [place] AMERICAUrea nitrogen [Mass/Vol]31 mg/[id number] on above:Order Comment: Specimen Type: BLOOD SPECIMENOrdering Facility: [facility] Address:[address] [place], [place] [address]Performed By: #### [id number] 8 ####[facility] [id number] [place] [address] [place] STATES OF AMERICAFerritin SerPl-Jeff[facility] Hospitalon 01-06-2025 Ferritin [Mass/Vol]449.0 ng/oBFrgn98.7-205.1CC[facility] on above:Order Comment: Specimen Type: BLOOD SPECIMEN Ordering Facility: [facility] Address: [address] [place], [place] [address]Performed By: #### 83679-8, 2276-4 #### [facility] CLIA [id number] [address] [place] [address] [place] OF AMERICAIron and Iron binding capacity panelon 23-63-9253Maer [Mass/Vol]58 ug/uRSbzesc37-130XrwksrxvqSelect [facility] on above:Order Comment: Specimen Type: BLOOD SPECIMEN Ordering Facility: [facility] Address: [address] [place], [place] [address]Performed By: #### 44947-1, 2276-4 #### [facility] CLIA [id number] [address] [place] [address] [place] OF AMERICAIron binding capacity [Mass/Vol]320 ug/mFDrxjuh138-754NloczefjgSelect Medical Specialty Hospital - [place] on above:Order Comment: Specimen Type: BLOOD SPECIMEN Ordering Facility: [facility] Address: [address] [place], [place] [address]Performed By: #### 10508-6, 6-4 #### [facility] CLIA [id number] [address] [place] [address] [place] OF AMERICAIron/TIBC [Molar ratio]18.1 %Dbnnnv47.0-57.0[facility] on above:Order Comment: Specimen Type: BLOOD SPECIMEN Ordering Facility: [facility] Address: [address] [place], [place] [address]Performed By: #### 78760-9, 2276-4 #### [facility] CLIA [id number] [address] [place] [address] [id number]ETRetics #on 01-06-2025 Reticulocytes (Bld) [#/Vol]0.37218 10*3/uLHigh0.018-0.100[facility] on above:Order Comment: Specimen Type: BLOOD SPECIMENOrdering Facility: [facility] Address:[address] [place], [place] [address]Performed By: #### 91373-8, 90484-2 ####[facility] LABCLIA [id number] [place], [place] [address]Ltcuylppghqdt (Bld) [#/Vol]on 45-03-4888Vchnbfuersygh/100 RBC (Bld)4.0 %High0.4-2.0[facility] on above:Order Comment: Specimen Type: BLOOD SPECIMENOrdering Facility: [facility] Address:[address] [place], [place] [address]Performed By: #### 32026-1, 98148-0 ####[facility] LABCLIA [id number] [place], [place] [address]TCBKjh [id number] Telephone (HEMASA) ANH TEJEDA ([id number]) 1950 F Date Time Provider Department 01/02/25 DAKSHA BRIDGES During your visit today, we [...] PA-C - Fully Assessed Reason for Visit: Lab Orders [168] Primary Visit Diagnosis:Iron deficiency anemia, unspecified iron deficiency anemia type [D50.9] Order(s):COMPLETE BLOOD COUNT AND DIFFERENTIAL [SQCBCDIF] Order #: [id number] FUTURE FERRITIN [SQFERR] Order #: [id number] FUTURE IRON AND TIBC [SQIRON] Order #: [id number] FUTURE RETICULOCYTE COUNT [SQRETIC] Order #: [id number] FUTURE COMPREHENSIVE METABOLIC PANEL [SQCMP] Order #: [id number] FUTURE Prescriptions as of 01/02/2025 - diphenhydrAMINE [...] mg by mouth daily at bedtime. - lisinopril-hydroCHLOROthiazide (PRINZIDE,ZESTORETIC) 10-12.5 mg per tablet Take [...] 01/29/2024 Encounter Status:Closed by VERNON HENRIQUEZ on 01/02/[address] with Estimated Average Gluon 43-24-1346Vgwogqp [Mass/Vol]212 mg/dL NormalThe Pending [facility] To [facility] Physician GroupComment on above:Result Comment: PERFORMED BY: [place] [address] PATHOLOGIST LEADERSHIP PROGRAM ASSOCIATE VEL GARCIA M.D.Performed By: #### MG, CMP, CBC, LIPID #### [facility] [address] [place] [address] RUXFcN5h (Bld) [Mass fraction]9.0 %High4.3-5.6The Pending Sale To [facility] Physician GroupComment on above:Result Comment: Increased risk for diabetes: 5.7 - 6.4 diabetes: >6.4 glycemic control for adults with diabetes: <7.0Performed By: #### MG, CMP, CBC, LIPID #### [facility] [address] [place] [address] USAAlanine aminotransferase [Enzymatic activity/volume] in Serum or PlasmaOrdered By: Marilyn Stewart on 74-29-4715MOB [Catalytic activity/Vol] Alanine aminotransferase [Enzymatic activity/volume] in Serum or Plasma [facility] Medical CenterAlbumin [Mass/volume] in Serum or Plasma by Bromocresol green (BCG) dye binding methoOrdered By: Marilyn Stewart on 12-28-2024 Albumin BCG dye [Mass/Vol]Albumin [Mass/volume] in Serum or Plasma by Bromocresol green (BCG) dye binding metho3.5-5.7FTrinity Health System East CampusAlkaline phosphatase [Enzymatic activity/volume] in Serum or PlasmaOrdered By: Marilyn Stewart on 43-18-3466LBU [Catalytic activity/Vol]Alkaline phosphatase [Enzymatic activity/volume] in Serum or OyyywcIrzx02-945ZcntpvdpaPremier Health Atrium Medical CenterAppearance of UrineOrdered By: Marilyn Stewart on 14-35-0087Nkadsosudb (U)Urine appearanceAbnormalClearPremier Health Atrium Medical CenterAspartate aminotransferase [Enzymatic activity/volume] in Serum or PlasmaOrdered By: Marilyn Stewart on 92-95-6366VBH [Catalytic activity/Vol]Aspartate aminotransferase [Enzymatic activity/volume] in Serum or Hzsoqq29-74LcoevccmiPremier Health Atrium Medical CenterBacteria [Presence] in Urine by AutomatedOrdered By: Marilyn Stewart on 90-21-7035Rezqtcce Auto Ql (U)Bacteria [Presence] in Urine by AutomatedNone [facility] Medical CenterBilirubin Test strip Ql (U)Ordered By: Marilyn Stewart on 29-14-8225Chlczhbii Ql (U)Bilirubin.total [Presence] in Urine by Test stripNegativePremier Health Atrium Medical CenterBilirubin.total [Mass/volume] in Serum or PlasmaOrdered By: Marilyn Stewart 42-35-8395Abeacajbk [Mass/Vol] Bilirubin.total [Mass/volume] in Serum or Plasma0.3-1.0Prem[facility] Atrium Medical CenterBlood estimated average glucose determination by estimation from glycated hemoglobinOrdered By: Vinay Matta on 75-62-1643Qqeacyo glucose Estimated from glycated hemoglobin (Bld) [Mass/Vol]Glucose mean value [Mass/volume] in Blood Estimated from glycated hemoglobinPremier Health Atrium Medical CenterCalcium [Mass/volume] in Serum or PlasmaOrdered By: Marilyn Stewart 76-36-2789Paxadda [Mass/Vol]Calcium [Mass/volume] in Serum or PlasmaLow8.6-10.3 [facility] Medical CenterCarbon dioxide, total [Moles/volume] in Serum or PlasmaOrdered By: Marilyn Stewart on 31-93-4680SS6 [Moles/Vol]Carbon dioxide, total [Moles/volume] in Serum or Yxfafu01.0-31.0Prem[facility] Medical CenterChloride [Moles/volume] in Serum or PlasmaOrdered By: Marilyn Stewart on 55-93-7373Gayrhrit [Moles/Vol]Chloride [Moles/volume] in Serum or Myvrad41-312 [facility] Medical CenterCholesterol [Mass/volume] in Serum or Plasma Ordered By: Marilyn Stewart on 79-46-5570Yhqlqdxhxqn [Mass/Vol]Cholesterol [Mass/volume] in Serum or SqlhdwLuw570-807WcrrarbdsPremier Health Atrium Medical Center Comment on above:Chol less than 200 mg/dl low riskChol 201-239 mg/dl borderline riskChol 240 mg/dl and greater high riskCholesterol in HDL [Mass/volume] in Serum or PlasmaOrdered By: Marilyn Stewart on 89-63-6142Zlnfbnoosei in HDL [Mass/Vol]Serum or plasma high density lipoprotein (HDL) cholesterol measurement 23-92Premier Health Atrium Medical CenterComment on above:HDL CHOL ATP-III CLASSIFICATION Cardiovascular RiskHDL > or equal to 60 mg/dL LOWHDL < 40 mg/dL HIGHCholesterol in LDL Calc [Mass/Vol]Ordered By: Marilyn Stewart on 12-28-2024 Cholesterol in LDL [Mass/Vol]Cholesterol in LDL [Mass/volume] in Serum or Plasma by calculation0-100Prem[facility] Atrium Medical CenterComment on above:LDL ATP III CLASSIFICATIONLDL less than 100 mg/dL OptimalLDL 100-129 mg/dL Near or above akcoogiNCI203-824 mg/dL Borderline highLDL 160-189 mg/dL HighLDL greater than 189 mg/dL Very highCholesterol in VLDL Calc [Mass/Vol]Ordered By: Marilyn Stewart on 90-02-0835Rsgcalhcmoh in VLDL [Mass/Vol]Cholesterol in VLDL [Mass/volume] in Serum or Plasma by calculationPremier Health Atrium Medical CenterColor Auto (U) Ordered By: Marilyn Stewart on 05-72-7533Ltwxl (U)Color of Urine by AutoYellow [facility] Medical CenterComprehensive Metabolic Panelon 12-28-2024 Albumin [Mass/Vol]3.8 g/dLNormal3.5-5.7The Pending Sale To [facility] Physician GroupComment on above:Performed By: #### MG, CMP, CBC, LIPID #### [facility] [address] [place] [id number] USAAlbumin/Globulin [Mass ratio]1.8 {ratio}NormalThe Pending Sale To [facility] Physician GroupComment on above:Performed By: #### MG, CMP, CBC, LIPID #### [facility] [address] [place] [id number] USAALP [Catalytic activity/Vol]130 U/MWcgq76-682Eom Pending Sale To [facility] Physician GroupComment on above:Performed By: #### MG, CMP, CBC, LIPID #### [facility] [address] [place] [address] USAALT [Catalytic activity/Vol]19 U/LNormal7-52The Pending Sale To [facility] Physician GroupComment on above:Performed By: #### MG, CMP, CBC, LIPID #### [facility] [address] [place] [address] USAAnion gap [Moles/Vol]11.6 mmol/LNormal6.0-15.0The Pending Sale To [facility] Physician GroupComment on above:Performed By: #### MG, CMP, CBC, LIPID #### [facility] [address] [place] [id number] USAAST [Catalytic activity/Vol]24 U/YLifqln26-60Jxa Pending Sale To [facility] Physician GroupComment on above:Performed By: #### MG, CMP, CBC, LIPID #### [facility] [address] [place] [address] USABilirubin [Mass/Vol]0.7 mg/dLNormal0.3-1.0The Pending Sale To [facility] Physician GroupComment on above:Performed By: #### MG, CMP, CBC, LIPID #### [facility] [address] [place] [address] USACalcium [Mass/Vol]8.5 mg/dLLow8.6-10.3The Pending Sale To [facility] Physician GroupComment on above:Performed By: #### MG, CMP, CBC, LIPID #### [facility] [address] [place] [address] USAChloride [Moles/Vol]102 mmol/FItquvc55-204Cai Pending Sale To [facility] Physician GroupComment on above:Performed By: #### MG, CMP, CBC, LIPID #### [facility] [address] [place] [address] USACO2 [Moles/Vol]29.4 mmol/DLocrvg44.0-31.0The Pending Sale To [facility] Physician GroupComment on above:Performed By: #### MG, CMP, CBC, LIPID #### [facility] [address] [place] [address] USACreatinine [Mass/Vol]1.32 mg/dLHigh0.60-1.20The Pending Sale To [facility] Physician GroupComment on above:Performed By: #### MG, CMP, CBC, LIPID #### [facility] [address] [place] [address] USAEstimated GFR42.104 mL/MinNoAtrium Health [facility] Physician GroupComment on above:Performed By: #### MG, CMP, CBC, LIPID #### [facility] [address] [place] [address] USAGlobulin (S) [Mass/Vol]2.1 g/dLNoAtrium Health [facility] Physician GroupComment on above:Performed By: #### MG, CMP, CBC, LIPID #### [facility] [address] [place] [address] USAGlucose [Mass/Vol]182 mg/tPKtfh02-201Kum Pending Sale To [facility] Physician GroupComment on above:Result Comment: Random Glucose Reference Range is dependent on time and content of last meal. Glucose of more than 200 mg/dL in a nonstressed, ambulatory subject supports the diagnosis of Diabetes Mellitus. ADA recommended reference rangePerformed By: #### MG, CMP, CBC, LIPID #### [facility] [address] [place] [address] USAPotassium [Moles/Vol]4.0 mmol/LNormal3.5-5.1The Pending Sale To [facility] Physician GroupComment on above:Performed By: #### MG, CMP, CBC, LIPID #### [facility] [address] [place] [address] USAProtein [Mass/Vol]5.9 g/dLLow6.4-8.9The Pending Sale To [facility] Physician GroupComment on above:Performed By: #### MG, CMP, CBC, LIPID #### [facility] [address] [place] [address] USASodium [Moles/Vol]139 mmol/USctzfa000-298Wby Pending Sale To [facility] Physician GroupComment on above:Performed By: #### MG, CMP, CBC, LIPID #### [facility] [address] [place] [address] USAUrea nitrogen [Mass/Vol]29 mg/dLHigh7-25The Pending Sale To [facility] Physician GroupComment on above:Performed By: #### MG, CMP, CBC, LIPID #### [facility] [address] [place] [id number] USACreatinine [Mass/volume] in Serum or PlasmaOrdered By: Marilyn Stewart on 43-64-8830Emwosjioxb [Mass/Vol]Creatinine [Mass/volume] in Serum or PlasmaHigh0.60-1.20[facility] Medical CenterCreatinine [Mass/volume] in UrineOrdered By: Marilyn Stewart on 43-96-4125Xitrdddsar (U) [Mass/Vol]Creatinine [Mass/volume] in UrinePremier Health Atrium Medical CenterComment on above:No reference range establishedDipstick and Microscopicon 40-85-4632Ewrakfzmdk (U) CloudyCritically abnormalClearThe Pending Sale To [facility] Physician GroupComment on above: Order Comment: A1C IS NOT DUE UNTIL OCTOBER.Performed By: #### MG, CMP, CBC, LIPID #### [facility] [address] [place] [id number] USABacteria,UrineRareNormalNone SeenPhysicians Regional Medical Center - Collier Boulevard Physician GroupComment on above:Order Comment: A1C IS NOT DUE UNTIL OCTOBER.Performed By: #### MG, CMP, CBC, LIPID #### [facility] [address] [place] [id number] USABilirubin,UrineNegativeNormalNegativeThe Pending Sale To [facility] Physician GroupComment on above:Order Comment: A1C IS NOT DUE UNTIL OCTOBER. Performed By: #### MG, CMP, CBC, LIPID #### [place] [address] USAColor (U)Light-YellowNormalYellowThe Pending Sale To [facility] Physician GroupComment on above:Order Comment: A1C IS NOT DUE UNTIL OCTOBER.Performed By: #### MG, CMP, CBC, LIPID #### [place] [address] USAGlucose Ql (U)50 mg/dLHighNoalThSaint Alphons[facility] Physician GroupComment on above:Order Comment: A1C IS NOT DUE UNTIL OCTOBER.Performed By: #### MG, CMP, CBC, LIPID #### [place] [address] USAHyaline Casts,UrineNoneNormal0-8The Pending Sale To [facility] Physician GroupComment on above:Order Comment: A1C IS NOT DUE UNTIL OCTOBER.Performed By: #### MG, CMP, CBC, LIPID #### [place] [address] USAKetones Ql (U)NegativeNormalNegativePhysicians Regional Medical Center - Collier Boulevard Physician GroupComment on above:Order Comment: A1C IS NOT DUE UNTIL OCTOBER. Performed By: #### MG, CMP, CBC, LIPID #### [place] [address] USALeukocyte esterase Test strip Ql (U)NegativeNormalNegative The Pending Sale To [facility] Physician GroupComment on above:Order Comment: A1C IS NOT DUE UNTIL OCTOBER.Performed By: #### MG, CMP, CBC, LIPID #### [place] [address] USAMucus,UrineRareNormalThe Pending Sale To [facility] Physician GroupComment on above:Order Comment: A1C IS NOT DUE UNTIL OCTOBER.Result Comment: PERFORMED BY: [place] [address] PATHOLOGIST LEADERSHIP PROGRAM ASSOCIATE VEL GARCIA M.D.Performed By: #### MG, CMP, CBC, LIPID #### [place] [address] USANitrite,UrinePositiveHighNegativeThe Pending Sale To [facility] Physician GroupComment on above:Order Comment: A1C IS NOT DUE UNTIL OCTOBER.Performed By: #### MG, CMP, CBC, LIPID #### [facility] [address] [place] [address] USAOccult Blood,UrineNegativeNormalNegativeThe Pending Sale To [facility] Physician GroupComment on above:Order Comment: A1C IS NOT DUE UNTIL OCTOBER. Performed By: #### MG, CMP, CBC, LIPID #### [facility] [address] [place] [address] USApH (U)5.5 [pH]Normal5.0-9.0The Pending Sale To [facility] Comment on above:Order Comment: A1C IS NOT DUE UNTIL OCTOBER.Performed By: #### MG, CMP, CBC, LIPID #### [facility] [address] [place] [address] USAProtein,UrineNegativeNormalNegativeThe Pending Sale To [facility] Physician GroupComment on above:Order Comment: A1C IS NOT DUE UNTIL OCTOBER.Performed By: #### MG, CMP, CBC, LIPID #### [facility] [address] [place] [address] USARBC,Wuada3-3Pmdaii1-6Xwl Pending Sale To [facility] Physician GroupComment on above:Order Comment: A1C IS NOT DUE UNTIL OCTOBER.Performed By: #### MG, CMP, CBC, LIPID #### [facility] [address] [place] [address] USASpecificy [place],Urine1.434Qlgoyg6.001-1.030The Pending Sale To [facility] Physician GroupComment on above:Order Comment: A1C IS NOT DUE UNTIL OCTOBER. Performed By: #### MG, CMP, CBC, LIPID #### [facility] [address] [place] [id number] USASquamous Epithelial Cell,Mvbog8-6Wpbr8-5Gkl Pending Sale To [facility] Physician GroupComment on above:Order Comment: A1C IS NOT DUE UNTIL OCTOBER. Performed By: #### MG, CMP, CBC, LIPID #### [facility] [address] [place] [address] USAUrobilinogen,UrineNormalNormalNormalThe Pending Sale To [facility] Physician GroupComment on above:Order Comment: A1C IS NOT DUE UNTIL OCTOBER. Performed By: #### MG, CMP, CBC, LIPID #### [facility] [address] [place] [address] USAWBC,Yskcl0-0Auhw4-3Bwf Pending Sale To [facility] Physician GroupComment on above:Order Comment: A1C IS NOT DUE UNTIL OCTOBER.Performed By: #### MG, CMP, CBC, LIPID #### [facility] [address] [place] [address] USAEpithelial cells.squamous [#/area] in Urine sediment by Automated countOrdered By: Marilyn Smithr on 60-56-9172Uvjsgjfrku cells.squamous Auto (Urine sed) [#/Area]Epithelial cells.squamous [#/area] in Urine sediment by Automated countHigh0-2FTrinity Health System East CampusErythrocyte distribution width Auto (RBC) [Ratio]Ordered By: Marilyn Terry on 07-23-6583Xhzlgaatdtu distribution width (RBC) [Ratio]Erythrocyte distribution width [Ratio] by Automated wxqsoOtdg98.9-15.3FTrinity Health System East CampusErythrocytes [#/area] in Urine sediment by Automated countOrdered By: Marilyn Terry on 32-30-4360EWH Auto (Urine sed) [#/Area]Erythrocytes [#/area] in Urine sediment by Automated count0-4FTrinity Health System East CampusFerritinon 12-28-2024 Ferritin [Mass/Vol]398.3 ng/lLKimx78.0-306.8The Pending Sale To [facility] Physician GroupComment on above:Performed By: #### MG, CMP, CBC, LIPID #### [facility] [address] [place] [address] USAFerritin [Mass/volume] in Serum or PlasmaOrdered By: Marilyn Terry on 32-82-6091Qwgybkkm [Mass/Vol]Ferritin [Mass/volume] in Serum or Plasma High11.0-306.8Prem[facility]rium Medical CenterGlobulin Calc (S) [Mass/Vol] Ordered By: Marilyn Terry on 12-61-3880Huazuqdi (S) [Mass/Vol]Serum globulin measurement by calculation (mass/volume)Prem[facility] Medical CenterGlucose [Mass/volume] in Serum or PlasmaOrdered By: Marilyn Stewart on 44-71-0635Zkdugsb [Mass/Vol]Glucose [Mass/volume] in Serum or SrhfmcYoap68-037YqctpwvwzPremier Health Atrium Medical CenterComment on above:ADA recommended reference rangeRandom Glucose Reference Range is dependent on time and content of last meal. Glucose of more than 200 mg/dL in a nonstressed, ambulatory subject supports the diagnosisof Diabetes Mellitus.Glucose [Mass/volume] in Urine by Test stripOrdered By: Marilyn Stewart on 96-54-1771Zxumhrv Test strip (U) [Mass/Vol]Glucose [Mass/volume] in Urine by Test stripHighNormalPremier Health Atrium Medical CenterHematocrit Auto (Bld) [Volume fraction]Ordered By: Marilyn Stewart on 26-83-1632Apefwjyksr (Bld) [Volume fraction]Hematocrit [Volume Fraction] of Blood by Automated countLow 34.0-46.4FTrinity Health System East CampusHemoglobin A1c/Hemoglobin.total in BloodOrdered By: Vinay Matta on 25-80-0758NaD4u (Bld) [Mass fraction] Hemoglobin A1c percentageHigh4.3-5.6FTrinity Health System East CampusComment on above:Increased risk for diabetes: 5.7 - 6.4diabetes: >6.4glycemic control for adults with diabetes: <7.0Hemoglobin Test strip Ql (U)Ordered By: Marilyn Stewart on 99-25-3856Bmwffrcnen Ql (U)Hemoglobin [Presence] in Urine by Test strip [facility] HospitalHemoglobin [Mass/volume] in Blood Ordered By: Marilyn Stewart on 45-92-5851Gpwyjgmmqy (Bld) [Mass/Vol]Hemoglobin [Mass/volume] in StjagFag77.8-15.4FTrinity Health System East CampusHemogram CBC Without Diffon 89-84-7843Stteafuefhl distribution width (RBC) [Ratio]16.5 %High 11.9-15.3The Pending Sale To [facility] Physician GroupComment on above:Performed By: #### MG, CMP, CBC, LIPID #### [place] [address] USAHematocrit (Bld) [Volume fraction]31.9 %Low34.0-46.4The Pending Sale To [facility] Physician GroupComment on above:Performed By: #### MG, CMP, CBC, LIPID #### [place] [address] USAHemoglobin (Bld) [Mass/Vol]11.4 g/dLLow11.8-15.4The Pending Sale To [facility] Physician GroupComment on above:Performed By: #### MG, CMP, CBC, LIPID #### [address]H (RBC) [Entitic mass]30.3 fxZnfrus00.7-34.3The Pending Sale To [facility] Physician GroupComment on above:Performed By: #### MG, CMP, CBC, LIPID #### [place] [address] USAMCV (RBC) [Entitic vol]85.1 lZVlnzbd96-690Prf Pending Sale To [facility] Physician GroupComment on above:Performed By: #### MG, CMP, CBC, LIPID #### [place] [address] USAMean Corpuscular HGB Conc35.6 g/bSPstq74.0-35.0The Pending Sale To [facility] Physician GroupComment on above:Performed By: #### MG, CMP, CBC, LIPID #### [place] [address] USAPlatelet mean volume (Bld) [Entitic vol]6.9 fLNormal 6.3-10.7The Pending Sale To [facility] Physician GroupComment on above:Result Comment: PERFORMED BY: [place] [address] PATHOLOGIST LEAD[employer]IP PROGRAM ASSOCIATE VEL GARCIA M.D.Performed By: #### MG, CMP, CBC, LIPID #### [place] [address] USAPlatelets (Bld) [#/Vol]148 10*3/yENdv820-875Ewq Pending Sale To [facility] Physician GroupComment on above:Performed By: #### MG, CMP, CBC, LIPID #### [place] [address] USARBC (Bld) [#/Vol]3.75 10*6/uLNormal3.60-5.00The Pending Sale To [facility] Physician GroupComment on above:Performed By: #### MG, CMP, CBC, LIPID #### [facility] [address] [place] [address] USAWBC (Bld) [#/Vol]4.5 10*3/uLNormal3.8-11.6The Pending Sale To [facility] Physician GroupComment on above:Performed By: #### MG, CMP, CBC, LIPID #### [facility] [address] [place] [address] USAHyaline casts [#/area] in Urine sediment by Automated countOrdered By: Marilyn Stewart on 08-66-0556Rftqmcq casts Auto (Urine sed) [#/Area]Hyaline casts [#/area] in Urine sediment by Automated count0-8Prem[facility] Atrium Medical CenterIron [Mass/volume] in Serum or PlasmaOrdered By: Marilyn Stewart on 92-87-5181Mdmh [Mass/Vol]Iron [Mass/volume] in Serum or Fgjsjm75-735 [facility]rium Medical CenterIron and TIBC Profileon 12-28-2024% Iron Hrhjrzmbar22.1 %Lfgnfl99-90Jxd Pending Sale To [facility] Physician GroupComment on above: Performed By: #### MG, CMP, CBC, LIPID #### [place] [address] USAIron [Mass/Vol]90 ug/dKUzpfmo22-237Hif Pending [facility] To [facility] Physician GroupComment on above:Performed By: #### MG, CMP, CBC, LIPID #### [place] [address] USATotal Iron Binding Hgbqcrwr898 ug/vNHvrtdg027-787Qnp Pending Sale To [facility] Physician GroupComment on above:Performed By: #### MG, CMP, CBC, LIPID #### [place] [address] USATransferrin [Mass/Vol]256 mg/pNLgdaoq511-301Qay Pending Sale To [facility] Physician GroupComment on above:Performed By: #### MG, CMP, CBC, LIPID #### [facility] [address] [place] [address] USAKetones Test strip Ql (U)Ordered By: Marilyn Stewart on 13-03-4244Xqjrdlw Ql (U)Ketones [Presence] in Urine by Test stripNegative [facility]rium Medical CenterLeukocyte esterase [Presence] in Urine by Test stripOrdered By: Marilyn Stewart on 46-12-6354Uynnkowiu esterase Test strip Ql (U) Leukocyte esterase [Presence] in Urine by Test stripNegativePremier Health Atrium Medical CenterLeukocytes [#/area] in Urine sediment by Automated countOrdered By: Marilyn Stewart on 46-38-8389WFV Auto (Urine sed) [#/Area]Leukocytes [#/area] in Urine sediment by Automated countHigh0-4FTrinity Health System East Campus Leukocytes [#/volume] corrected for nucleated erythrocytes in Blood by Automated counOrdered By: Marilyn Stewart on 89-53-2477FEM corrected for nucl RBC Auto (Bld) [#/Vol]Leukocytes [#/volume] corrected for nucleated erythrocytes in Blood by Automated coun3.8-11.6FTrinity Health System East CampusLipid Panelon 12-28-2024 Cholesterol [Mass/Vol]107 mg/kEWiz479-244Cwv Pending Sale To [facility] Physician GroupComment on above:Result Comment: Chol less than 200 mg/dl low risk Chol 201-239 mg/dl borderline risk Chol 240 mg/dl and greater high riskPerformed By: #### MG, CMP, CBC, LIPID #### [facility] [address] [place] [address] USACholesterol in HDL [Mass/Vol]38 mg/pWStboaz65-06Urf Pending Sale To [facility] Physician GroupComment on above:Result Comment: HDL CHOL ATP-III CLASSIFICATION Cardiovascular Risk HDL > or equal to 60 mg/dL LOW HDL < 40 mg/dL HIGHPerformed By: #### MG, CMP, CBC, LIPID #### [facility] [address] [place] [address] USACholesterol.total/Cholesterol in HDL [Mass ratio]2.8 {ratio}Normal<5.0The Pending Sale To [facility] Physician GroupComment on above:Performed By: #### MG, CMP, CBC, LIPID #### [facility] [address] [place] [id number] USALDL Cholesterol,Njptbkcbrc55 mg/dLNormal0-100The Pending Sale To [facility] Physician GroupComment on above:Result Comment: LDL ATP III CLASSIFICATION LDL less than 100 mg/dL Optimal LDL 100-129 mg/dL Near or above optimal LDL 130-159 mg/dL Borderline high LDL 160-189 mg/dL High LDL greater than 189 mg/dL Very highPerformed By: #### MG, CMP, CBC, LIPID #### [facility] [address] [place] [id number] USATriglyceride w/Zhgrty086 mg/dLNormal0-149The Pending Sale To [facility] Physician GroupComment on above:Result Comment: TRIG ATP III CLASSIFICATION TRIG less than 150 mg/dL Normal TRIG 150-199 mg/dL Borderline high TRIG 200-500 mg/dL High TRIG greater than 500 mg/dL Very high Standard traceable to the Center for Disease Conrtrol and Prevention (CDC) test method.Performed By: #### MG, CMP, CBC, LIPID #### [facility] [address] [place] [address] USAVLDL VTWTVOPDBBG18 mg/dLNormalThe Pending Sale To [facility] Physician GroupComment on above:Performed By: #### MG, CMP, CBC, LIPID #### [facility] [address] [place] [id number] [facility] Auto (RBC) [Entitic mass]Ordered By: Marilyn Stewart on 49-28-4748XMP (RBC) [Entitic mass]MCH [Entitic mass] by Automated count24.7-34.3 [facility] Auto (RBC) [Mass/Vol]Ordered By: Marilyn Terry on 08-20-5935FEHA (RBC) [Mass/Vol]MCHC [Mass/volume] by Automated count High32.0-35.0[facility] Auto (RBC) [Entitic vol] Ordered By: Marilyn Terry on 33-28-8296BWC (RBC) [Entitic vol]MCV [Entitic volume] by Automated ycxla01-321BmmwxzdvnPremier Health Atrium Medical CenterMM screening mammo BI w/CADon 42-82-6952CI screening mammo BI [facility] [address] [place], [place] [address] Mammography Report Signed Patient: Anh Tejeda MR#: [id number] : 1950 Acct:[id number] Age/Sex: 73 / F ADM Date: 12/28/24 Loc: [place] Room: Type: [facility] Attending Dr: Referral Self Copies to: Vinay Matta,DO SELF,REFERRAL Ordering Provider: SELF,REFERRAL Date of Service: [...] Sharad Robles M.D.12/28/2024 12:10 PM Dictation Location: [facility] Transcribed By: [facility] 12/28/24 1210 Dictated By: Sharad Robles DO 12/28/24 1204 Signed By: 12/28/24 1210NormNorthwest Florida Community Hospital Physician GroupMagnesiumon 73-15-8422Yrhfcpbjd [Mass/Vol]1.2 mg/dLLow1.9-2.7The Pending Sale To [facility] Physician GroupComment on above: Performed By: #### MG, CMP, CBC, LIPID #### [facility] [address] [place] [address] USAMagnesium [Mass/volume] in Serum or PlasmaOrdered By: Marilyn Stewart on 65-39-4357Uzoofubjz [Mass/Vol]Magnesium [Mass/volume] in Serum or PlasmaLow1.9-2.7FTrinity Health System East CampusMammography reportOrdered By: Sharad Robles on 17-37-8582Rfdpwbqieu imaging studyHENRY COUNTY HOSPITAL [address] [place] [address] Mammography Report Signed Patient: Anh Tejeda MR#: [id number] : 1950 Acct:[id number] Age/Sex: 73 / F ADM Date: 5 Loc: [place] Room: Type: [facility] Attending Dr: Referral Self Copies to: Vinay Matta,DO SELF,REFERRAL ~ Ordering Provider: SELF,REFERRAL Date of [...] Sharad Robles M.D.12/28/2024 12:10 PM Dictation Location: [facility] Transcribed By: [facility] 12/28/24 1210 Dictated By: Sharad Robles DO 12/28/24 1204 Signed By: 12/28/24 1210 Premier Health Atrium Medical CenterMucus [Presence] in Urine by AutomatedOrdered By: Marilyn Stewart on 43-38-1358Lfwov Auto Ql (U)Mucus [Presence] in Urine by AutomatedPremier Health Atrium Medical CenterNitrite Test strip Ql (U)Ordered By: Marilyn Stewart on 72-48-9064Vkcytni Ql (U)Nitrite [Presence] in Urine by Test strip HighNegativePremier Health Atrium Medical CenterNo Panel InformationOrdered By: Marilyn Stewart on 86-55-2246Adqqyxcar GFR (CKD-EPI)42.104 mL/MinPremier Health Atrium Medical CenterPharmacy Creatinine Clearance (ChemN/AFTrinity Health System East CampusParathyrin.intact [Mass/volume] in Serum or PlasmaOrdered By: Marilyn Stewart on 71-65-8933Krwssgppmy.intact [Mass/Vol]Parathyrin.intact [Mass/volume] in Serum or Propsa09-86IdftzmtmfPremier Health Atrium Medical CenterParathyroid Hormone Intact on 11-99-8592Uwqfbjebblm Hormone Fbphfa85.7 pg/wCHwunts98-19Bio Pending Sale To [facility] Physician GroupComment on above:Result Comment: PERFORMED BY: [place] [address] PATHOLOGIST LEADERSHIP PROGRAM ASSOCIATE VEL GARCIA M.D.Performed By: #### MG, CMP, CBC, LIPID #### [facility] [address] [place] [address] USAPhosphate [Mass/volume] in Serum or PlasmaOrdered By: Marilyn Stewart on 57-50-7667Vfxoupkpr [Mass/Vol]Phosphate [Mass/volume] in Serum or Plasma2.5-4.5FTrinity Health System East CampusPlatelet mean volume Auto (Bld) [Entitic vol]Ordered By: Marilyn Stewart on 99-70-9531Ktfqquno mean volume (Bld) [Entitic vol]Platelet mean volume [Entitic volume] in Blood by Automated count 6.3-10.7FTrinity Health System East CampusPlatelets Auto (Bld) [#/Vol]Ordered By: Marilyn Stewart on 20-47-8063Ifvswotdd (Bld) [#/Vol]Platelets [#/volume] in Blood by Automated gtenvSos541-681FcqjtfqpePremier Health Atrium Medical CenterPotassium [Moles/volume] in Serum or PlasmaOrdered By: Marilyn Stewart on 73-56-5340Qploepbum [Moles/Vol]Potassium [Moles/volume] in Serum or Plasma3.5-5.1FTrinity Health System East CampusProtein Creat Ratio Ur Randomon 48-06-6566Znbndsveyx, Urine (Random)74.00 mg/dLNormNorthwest Florida Community Hospital Physician [facility] HospitalComment on above:Result Comment: No reference range establishedPerformed By: #### MG, CMP, CBC, LIPID #### [facility] [address] [place] [address] USAProtein (U) [Mass/Vol]23 mg/dLHigh0-9The Pending Sale To [facility] Physician GroupComment on above:Performed By: #### MG, CMP, CBC, LIPID #### [facility] [address] [place] [address] USAUrine Protein/Creatinine Rhxce433 mg/g{Cre}High0-200The Pending Sale To [facility] Physician [facility] HospitalComment on above:Result Comment: PERFORMED BY: [place] [address] PATHOLOGIST LEADERSHIP PROGRAM ASSOCIATE VEL GARCIA M.D.Performed By: #### MG, CMP, CBC, LIPID #### [facility] [address] [place] [address] USAProtein Test strip (U) [Mass/Vol]Ordered By: Marilyn Terry on 81-89-4720Nfuctyl (U) [Mass/Vol]Protein [Mass/volume] in Urine by Test strip NegativePremier Health Atrium Medical CenterProtein [Mass/volume] in Serum or PlasmaOrdered By: Marilyn Terry on 94-87-4605Fqgtsmb [Mass/Vol]Protein [Mass/volume] in Serum or PlasmaLow6.4-8.9Prem[facility] Center Protein [Mass/volume] in UrineOrdered By: Marilyn Terry on 52-59-3939Spvpxcv (U) [Mass/Vol]Protein [Mass/volume] in UrineHigh0-9Prem[facility] Health Atrium Medical Center RBC Auto (Bld) [#/Vol]Ordered By: Marilyn Terry on 88-04-5488NII (Bld) [#/Vol] Erythrocytes [#/volume] in Blood by Automated count3.60-5.00Premier Health Atrium Medical CenterRenal Function Panelon 94-18-1155Miqxkgbyx [Mass/Vol]4.1 mg/dL Normal2.5-4.5The Pending Sale To [facility] Health Physician GroupComment on above:Performed By: #### MG, CMP, CBC, LIPID #### [facility] [address] [place] [address] USASerum or plasma albumin/globulin mass ratioOrdered By: Marilyn Stewart on 62-06-3989Iguwvgo/Globulin [Mass ratio]Serum or plasma albumin/globulin mass ratioMercy Health St. Vincent Medical Centererum or plasma anion gap determinationOrdered By: Marilyn Stewart on 76-26-0133Blpfq gap [Moles/Vol]Serum or plasma anion gap determination6.0-15.0Mer[facility] Health St. Vincent Medical Centererum or plasma iron binding capacity measurement (mass/volume) Ordered By: Marilyn Stewart on 14-58-9716Mvny binding capacity [Mass/Vol]Iron binding capacity [Mass/volume] in Serum or Orsvnf509-196UvayfypwsMercy Health St. Vincent Medical Centererum or plasma iron saturation measurement (mass fraction)Ordered By: Marilyn Stewart on 89-93-0723Oevo saturation [Mass fraction]Iron saturation [Mass Fraction] in Serum or Pzkvuj07-13FyueppayoMercy Health St. Vincent Medical Centererum or plasma total cholesterol/high density lipoprotein (HDL) cholesterol mass rat Ordered By: Marilyn Stewart on 42-70-7594Ttpsftpfouu.total/Cholesterol in HDL [Mass ratio]Serum or plasma total cholesterol/high density lipoprotein (HDL) cholesterol mass rat<5.0Mercy Health St. Vincent Medical Centerodium [Moles/volume] in Serum or PlasmaOrdered By: Marilyn Stewart on 15-20-2478Irprtm [Moles/Vol]Sodium [Moles/volume] in Serum or Hjdbqo805-190CifhsymdiPremier Health Atrium Medical Center Specific gravity Test strip (U) [Rel density]Ordered By: Marilyn Stewart on 40-58-1936Twhqpjfb gravity (U) [Rel density]Specific gravity of Urine by Test strip1.001-1.030Premier Health Atrium Medical CenterTransferrin [Mass/volume] in Serum or PlasmaOrdered By: Marilyn Stewart on 99-49-2893Ypgmtxosfoh [Mass/Vol] Transferrin [Mass/volume] in Serum or Nbfovk857-720WupsuiezaPremier Health Atrium Medical CenterTriglyceride [Mass/volume] in Serum or PlasmaOrdered By: Marilyn Stewart on 62-67-0943Esuuvlcgkilq [Mass/Vol]Triglyceride [Mass/volume] in Serum or Plasma 0-149Premier Health Atrium Medical CenterComment on above:TRIG ATP III CLASSIFICATIONTRIG less than 150 mg/dL NormalTRIG 150-199 mg/dL Borderline highTRIG 200-500 mg/dL High TRIG greater than 500 mg/dL Very highStandard traceable to the Center for Disease Conrtrol and Prevention (CDC) test method. Urate [Mass/volume] in Serum or PlasmaOrdered By: Marilyn Stewart on 86-33-2671Nvcdh [Mass/Vol]Urate [Mass/volume] in Serum or Plasma2.3-6.6FTrinity Health System East CampusUrea nitrogen [Mass/volume] in Serum or PlasmaOrdered By: Marilyn Stewart on 95-54-5284Hotj nitrogen [Mass/Vol]Urea nitrogen [Mass/volume] in Serum or PlasmaHigh7-25Premier Health Atrium Medical CenterUric Acidon 14-62-4521Rkenn [Mass/Vol]3.8 mg/dLNormal2.3-6.6The Pending Sale To [facility] Physician GroupComment on above: Performed By: #### MG, CMP, CBC, LIPID #### [address] StreetUrine Cultureon 23-78-7246Wwhdfkcz identified Cx Nom (U) ORGANISM: Escherichia coli (O:ESCCOL) [place] Count >100,000 Aerobic JUNAID Charge (NMIC56) SUSCEPTIBILITY [...] <4 Tigecycline S <2 Tobramycin S <2 Trimethoprim/Sulfamethoxazole S <0.5 S = SUSCEPTIBLE I = [...] RESISTANT TO ALL B-LACTAM DRUGS. PERFORMED BY: [place] [address] PATHOLOGIST LEADERSHIP PROGRAM ASSOCIATE VEL GARCIA M.D.NormalThe Pending Sale To [facility] Health Physician GroupComment on above: Performed By: #### MG, CMP, CBC, LIPID #### [facility] [address] [place] [address] USAUrine cultureOrdered By: Marilyn Stewart on 58-39-0700Ijifhfbe identified Cx Nom (U)Escherichia coliAbKettering Health Behavioral Medical Center Urine protein/creatinine ratioOrdered By: Marilyn Stewart on 12-28-2024 Protein/Creatinine (U) [Ratio]Urine protein/creatinine ratioHigh0-200Premier Health Atrium Medical CenterUrobilinogen Test strip (U) [Mass/Vol]Ordered By: Marilyn Stewart on 10-69-0914Opjmlzfbgbtw (U) [Mass/Vol]Urobilinogen [Mass/volume] in Urine by Test stripWilson Street HospitalVitamin D 25 Hydroxy Totalon 94-97-9772Afoqrtg D 25 Hydroxy Total58.1 ng/gMShmcja26-382Nyz Pending Sale To [facility] Health Physician GroupComment on above:Result Comment: VITAMIN D STATUS 25(OH)VITAMIN D RANGE (ng/mL) Deficient <20 Insufficient 20 to <30 Sufficient 30 to 100 Reference: Oli MF,Albert NC, ClaudeHawk LACKEY et al. Evaluation,treatment, and prevention of vitamin D deficiency; an Endocrine Society clinical practice guideline. JCEM. 2010; 96(7):1911-30. PERFORMED BY: [place] [id number] PATHOLOGIST LEADERSHIP PROGRAM ASSOCIATE VEL GARCIA M.D.Performed By: #### MG, CMP, CBC, LIPID #### [place] [id number] USAVitamin D+Metabolites [Mass/volume] in Serum or Plasma Ordered By: Marilyn Stewart on 53-36-9186Qlggkfk D+Metabolites [Mass/Vol]Vitamin D+Metabolites [Mass/volume] in Serum or Qrpxyp44-672QatxcrdawPremier Health Atrium Medical CenterComment on above:VITAMIN D STATUS 25(OH)VITAMIN D RANGE (ng/mL) Deficient <20 Insufficient 20 to <98Zooixihuwe23 to 100Reference: Oli MF,Albert NC, Beltran LACKEY et al. Evaluation,treatment, and prevention of vitamin D deficiency; an Endocrine Society clinical practice guideline. JCEM. 2010; 96 (7):1911-30.pH Test strip (U)Ordered By: Marilyn Stewart on 08-41-0137aS (U)pH of Urine by Test strip5.0-9.0Prem[facility] Atrium Medical CenterX-ray reportOrdered By: René Fox on 71-71-8693Hrhwm reportHENRY COUNTY HOSPITAL [address] [place], [place] [address] XRay Report Signed Patient: Anh Tejeda MR#: [id number] : 1950 Acct:[id number] Age/Sex: 73 / F ADM Date: 5 Loc: XD Room: Type: [facility] Attending Dr: Vinay Matta DO Copies to: [...] DISEASE. Impression dictated by: René Fox Jr., D.O.12/15/2024 4:14 PM Dictation Location: RADIO-PC-22 Transcribed By: PWS 12/15/241613 Dictated By: René Fox Jr DO 12/15/241613 Signed By: 12/15/24 1614 [facility] Atrium Medical CenterXR lumbar spine 6V w bendingon 01-92-2090BZ lumbar spine 6V w bendingHENRY COUNTY HOSPITAL [address] [place] [address] XRay Report Signed Patient: Anh Tejeda MR#: [id number] : 1950 Acct:[id number] Age/Sex: 73 / F ADM Date: 12/15/24 Loc: XD Room: Type: [facility] Attending Dr: Vinay Matta DO Copies to: [...] DISEASE. Impression dictated by: René Fox Jr., D.O.12/15/2024 4:14 PM Dictation Location: RADIO-PC-22 Transcribed By: PWS 12/15/241613 Dictated By: René Fox Jr DO 12/15/241613 Signed By: 12/15/24 [facility] Physician GroupCNPNon 22-94-1035YCUMPhprpbawy (HEMASA) ANH TEJEDA ([id number]) 1950 F Date Time Provider Department 10/10/24 DAKSHA BRIDGES HEMASA During your visit today, [...] mg by mouth daily at bedtime. - lisinopril-hydroCHLOROthiazide (PRINZIDE,ZESTORETIC) 10-12.5 mg per tablet Take [...] 01/29/2024 Encounter Status:Closed by SAMANTHA MCMAHAN on 10/10/24NormalCMemorial Hospital W Auto Differential panel (Bld)on 94-07-8837Bqrcdcekw (Bld) [#/Vol] 10*3/uLNormal<0.11CCleveland Clinic [facility] on above:Order Comment: Specimen Type: BLOOD SPECIMENOrdering Facility: [facility] Address:[address] [place], [place] [address]Qmejcnvmk By: #### 04483-7, 74246-3 ####[facility] LABCLIA [id number] [place], [place] [address]Fhjlklkzh/100 WBC (Bld)0.4 %NormalSelect Medical Specialty Hospital - [facility] on above:Order Comment: Specimen Type: BLOOD SPECIMENOrdering Facility: [facility] Address:[address] [place], [place] [address]Aiprhicpz By: #### 72871-0, 73286-3 ####[facility] LABCLIA [id number] [place], [place] [address]Vlhnfuxuunev cell count method Nom (Bld)AutoNormalCCleveland Clinic Marymount Hospital on above:Order Comment: Specimen Type: BLOOD SPECIMENOrdering Facility: [facility] Address:[address] [place], [place] [address]Performed By: #### 12059- 8, 51812-7 ####[facility] LABCLIA [id number] [place], [place] [address]Zvpcjbfwxon (Bld) [#/Vol]0.17 10*3/uLNormal<0.46 [facility] on above:Order Comment: Specimen Type: BLOOD SPECIMENOrdering Facility: [facility] Address:[address] [place], [place] [address]Performed By: #### 43508-0, 71763-2 ####[facility] LABCLIA [id number] [place] [address] Eosinophils/100 WBC (Bld)3.3 %NormalSelect Medical Specialty Hospital - [facility] on above: Order Comment: Specimen Type: BLOOD SPECIMENOrdering Facility: [facility] Address:[address] [place], [place] [address]Performed By: #### 36783- 8, 18624-8 ####[facility] LABCLIA [id number] [place], [place] [address]Jezoofgwlyc distribution width (RBC) [Ratio]15.1 % High11.5-15.0[facility] on above:Order Comment: Specimen Type: BLOOD SPECIMENOrdering Facility: [facility] Address:[address] [place], [place] [address]Performed By: #### 92606-6, 22519-4 ####[facility] LABCLIA [id number] [place], [place] [address]Yvgkndfusa (Bld) [Volume fraction]33.0 %Low36.0-46.0 [facility] on above:Order Comment: Specimen Type: BLOOD SPECIMENOrdering Facility: [facility] Address:[address] [place], [place] [address]Performed By: #### 83471-5, 09596-8 ####[facility] LABCLIA [id number] [place] [address] Hemoglobin (Bld) [Mass/Vol]11.6 g/kIIjtvoc21.5-15.5CC[facility] Comment on above:Order Comment: Specimen Type: BLOOD SPECIMENOrdering Facility: [facility] Address:[address] [place] [address] Performed By: #### 28101-5, 06802-6 ####[facility] LABCLIA [id number] [place], [place] [address]Liomtylv granulocytes (Bld) [#/Vol]10*3/uLNormal<0.10[facility] Hospitalment on above:Order Comment: Specimen Type: BLOOD SPECIMENOrdering Facility: [facility] Address:[address] [place], [place] [address]Performed By: #### 25728- 8, 48073-2 ####[facility] LABIA [id number] [place], [place] [address]Gxseycaw granulocytes/100 WBC (Bld)0.4 %Normal [facility] on above:Order Comment: Specimen Type: BLOOD SPECIMENOrdering Facility: [facility] Address:[address] [place], [place] [address]Performed By: #### 03943-1, 45192-7 ####[facility] LABIA [id number] [place] [address] Lymphocytes (Bld) [#/Vol]1.32 10*3/uLNormal1.00-4.00[facility] Comment on above:Order Comment: Specimen Type: BLOOD SPECIMENOrdering Facility: [facility] Address:[address] [place] [address] Performed By: #### 91971-4, 36426-0 ####[facility] LABCLIA [id number] [place], [place] [address]Xmfyflrchma/100 WBC (Bld)25.5 %NormalSelect Medical Specialty Hospital - [facility] on above:Order Comment: Specimen Type: BLOOD SPECIMENOrdering Facility: [facility] Address:[address] [place], [place] [address]Performed By: #### 42921-5, 00986-0 ####[facility] LABCLIA [id number] [place], [place] [address]NRF (RBC) [Entitic mass]29.7 tzHfkmyt51.0-34.0[facility] on above:Order Comment: Specimen Type: BLOOD SPECIMENOrdering Facility: [facility] Address:[address] [place], [place] [address]Performed By: #### 56317-0, 64168-8 ####[facility] LABCLIA [id number] [place], [place] [address]YUOR (RBC) [Mass/Vol]35.2 g/bHCfdifc39.5-36.0[facility] on above:Order Comment: Specimen Type: BLOOD SPECIMENOrdering Facility: [facility] Address:[address] [place], [place] [address]Performed By: #### 55843-9, 92684-2 ####[facility] LABCLIA [id number] [place], [place] [address]TYP (RBC) [Entitic vol]84.6 fLNormal 80.0-100.0[facility] on above:Order Comment: Specimen Type: BLOOD SPECIMENOrdering Facility: [facility] Address:[address] [place], [place] [address]Performed By: #### 78546-0, 04650-0 ####[facility] LABCLIA [id number] [place], [place] [address]Gkcvujxwj (Bld) [#/Vol]0.28 10*3/uLNormal<0.87[facility] on above:Order Comment: Specimen Type: BLOOD SPECIMENOrdering Facility: [facility] Address:[address] [place], [place] [address]Performed By: #### 02494-0, 92780-4 ####[facility] LABCLIA [id number] [place] [address] Monocytes/100 WBC (Bld)5.4 %NormalSelect Medical Specialty Hospital - [place] on above: Order Comment: Specimen Type: BLOOD SPECIMENOrdering Facility: [facility] Address:[address] [place], [place] [address]Performed By: #### 69959- 8, 09778-5 ####[facility] LABCLIA [id number] [place], [place] [address]Aiemqhdetqj (Bld) [#/Vol]3.37 10*3/uLNormal 1.45-7.50[facility] on above:Order Comment: Specimen Type: BLOOD SPECIMENOrdering Facility: [facility] Address:[address] [place], [place] [address]Performed By: #### 91107-1, 15186-8 ####[facility] LABCLIA [id number] [place], [place] [address]Yigwpxesbje/100 WBC (Bld)65.0 %NormalSelect Medical Specialty Hospital - [place] on above:Order Comment: Specimen Type: BLOOD SPECIMENOrdering Facility: [facility] Address:[address] [place], [place] [address]Performed By: #### 49040-0, 48415-0 ####[facility] LABIA [id number] [place], [place] [address]Cxnpphqja RBC (Bld) [#/Vol]10*3/uLNormal<0.01[facility] on above:Order Comment: Specimen Type: BLOOD SPECIMENOrdering Facility: [facility] Address:[address] [place], [place] [address]Performed By: #### 41322- 8, 95757-7 ####[facility] LABCLIA [id number] [place], [place] [address]Yxnddadgq RBC/100 WBC (Bld) [Ratio]0.0 /100 WBC NormalSelect Medical Specialty Hospital [facility] [place] on above:Order Comment: Specimen Type: BLOOD SPECIMENOrdering Facility: [facility] Address:[address] [place], [place] [address]Performed By: #### 30685-3, 28350-4 ####[facility] LABCLIA [id number] [place], [place] [address]Esvfxskr mean volume (Bld) [Entitic vol]9.8 fLNormal9.0-12.7CCleveland Clinic [facility] on above:Order Comment: Specimen Type: BLOOD SPECIMENOrdering Facility: [facility] Address:[address] [place], [place] [address]Performed By: #### 04173-1, 23253-1 ####[facility] LABIA [id number] [place] [address] Platelets (Bld) [#/Vol]126 10*3/hWOlw142-211BbkthoucaSelect Medical Specialty Hospital - [place] on above:Order Comment: Specimen Type: BLOOD SPECIMENOrdering Facility: [facility] Address:[address] [place], [place] [address]Result Comment: Results checked and verified.No clot detected.Performed By: #### 05537-9, 92345- 0 ####[facility] LABIA [id number] [place], [place] [address]FLU (Bld) [#/Vol]3.90 10*6/uLNormal3.90-5.20[facility] on above:Order Comment: Specimen Type: BLOOD SPECIMENOrdering Facility: [facility] Address:[address] [place], [place] [address]Performed By: #### 95621-7, 31240-1 ####[facility] LABCLIA [id number] [place], [place] [address]JWF (Bld) [#/Vol]5.18 10*3/uLNormal3.70-11.00[facility] Community HospitalComment on above:Order Comment: Specimen Type: BLOOD SPECIMENOrdering Facility: [facility] Address:[address] [place], [place] [id number] By: #### 85278-6, 51829-0 ####[facility] LABCLIA [id number] [place], [place] [address]OIZXGJyn [id number] (SP) Office (HEMASA) ANH TEJEDA ([id number]) 1950 F Date Time Provider Department 10/07/24 2:30 PM DAKSHA BRIDGES During your visit today, we recorded the following information about you: Temperature Pulse Respiration Blood pressure 97.1 degrees 81/minute 18/minute 144/75 Weight Height 96.7 kg 1.58 m Daksha Bridges PA-C 10/07/2024 2:56 PM Signed Hematology Progress Note PATIENT NAME: Anh Tejeda CLINIC NO.: [id number] ATTENDING PHYSICIAN: Henry Walker MD DATE OF [...] bilaterally Abdomen: Benign Extremities: (more content not included)...[facility] Comprehensive metabolic 2000 panelon 70-12-2306Yfkaojg [Mass/Vol]3.9 g/dLNormal 3.9-4.9CCleveland Clinic Medina HospitalComment on above:Order Comment: Specimen Type: BLOOD SPECIMEN Ordering Facility: [facility] Address: [address] [place], [place] [address]Performed By: #### 40325-5, 2276-4 #### [facility] CLIA [id number] [address] [place] [address] [place] AMERICAALP [Catalytic activity/Vol] 182 U/AKahc64-563BpdzohzlgSelect Medical [facility]ty [facility] on above:Order Comment: Specimen Type: BLOOD SPECIMEN Ordering Facility: [facility] Address: [address] [place], [place] [address]Performed By: #### 55317-6, 2275- #### [facility] CLIA [id number] [address] [place] [address] [place] AMERICAALT [Catalytic activity/Vol] 17 U/LNormal7-38[facility] on above:Order Comment: Specimen Type: BLOOD SPECIMEN Ordering Facility: [facility] Address: [address] [place], [place] [address]Performed By: #### 67889-0, 2276-02 #### [facility] CLIA [id number] [address] [place] [address] [place] AMERICAAnion gap [Moles/Vol]11 mmol/LNormal8-15[facility] on above:Order Comment: Specimen Type: BLOOD SPECIMEN Ordering Facility: [facility] Address: [address] [place], [place] [address]Performed By: #### 29330-8, 2276-02 #### [facility] CLIA [id number] [address] [place] [address] [place] AMERICAAST [Catalytic activity/Vol] 21 U/DHoglpz86-37KmjgdhxyxSelect Medical Specialty Hospital [facility] [place] on above:Order Comment: Specimen Type: BLOOD SPECIMEN Ordering Facility: [facility] Address: [address] [place], [place] [address]Performed By: #### 93336-4, 2275-4 #### [facility] CLIA [id number] [address] [place], [place] [address] [place] OF AMERICABilirubin [Mass/Vol]0.6 mg/dLNormal0.2-1.3CCleveland Clinic [facility] on above:Order Comment: Specimen Type: BLOOD SPECIMEN Ordering Facility: [facility] Address: [address] [place], [place] [address]Performed By: #### 80479-4, 2276-02 #### [facility] CLIA [id number] [address] [place] [address] [place] AMERICACalcium [Mass/Vol]9.1 mg/dL Normal8.5-10.2CCleveland Clinic [facility] Hospital on above:Order Comment: Specimen Type: BLOOD SPECIMEN Ordering Facility: [facility] Address: [address] [place], [place] [address]Performed By: #### 29532-5, 2276-02 #### [facility] CLIA [id number] [address] [place] [address] [place] AMERICAChloride [Moles/Vol]99 mmol/MJcikqp79-160GuswttaxlSelect Medical Specialty Hospital - [place] on above:Order Comment: Specimen Type: BLOOD SPECIMEN Ordering Facility: [facility] Address: [address] [place], [place] [address]Performed By: #### 69788-8, 2276-02 #### [facility] CLIA [id number] [address] [place] [address] [place] AMERICACO2 [Moles/Vol]27 mmol/L Bvqjbk94-16OwmvfsyfoSelect Medical Specialty Hospital - [place] on above:Order Comment: Specimen Type: BLOOD SPECIMEN Ordering Facility: [facility] Address: [address] [place], [place] [address]Performed By: #### 75439-8, 2276-02 #### [facility] CLIA [id number] [address] [place] [address] [place] AMERICACreatinine [Mass/Vol]1.33 mg/dLHigh0.58-0.96[facility] on above:Order Comment: Specimen Type: BLOOD SPECIMEN Ordering Facility: [facility] Address: [address] [place], [place] [address]Performed By: #### 40460-3, 6-4 #### [facility] CLIA [id number] [address] [place] [address] [place] AMERICACreatinine and Glomerular filtration rate.predicted panel (S/P/Bld)42 mL/min/1.73m???Low>=60[facility] on above:Order Comment: Specimen Type: BLOOD SPECIMEN Ordering Facility: [facility] Address: [address] [place], [place] [address]Result Comment: Estimated Glomerular Filtration Rate (eGFR) is calculated using the 2020 CKD-EPI cre atinine equation. This equation utilizes serum creatinine, sex, and age as parameters. The creatinine assay has traceable calibration to isotope dilution- mass spectrometry. Refer to KDIGO guidelines for clinical interpretation. In patients with unstable renal function, e.g. those with acute kidney injury, the eGFR may not accurately reflect actual GFR.Performed By: #### 38188-7, 2276-02 #### [facility] CLIA [id number] [address] [place] [address] [place] AMERICAGlucose [Mass/Vol]361 mg/dL Pqus80-47EzdusydhoSelect Medical Specialty Hospital - [place] on above:Order Comment: Specimen Type: BLOOD SPECIMEN Ordering Facility: [facility] Address: [address] [place], [place] [address]Result Comment: The [place] Diabetes Association (ADA) provides guidance for cutoff [...] Standards of Medical Care in Diabetes 2016, [place] Diabetes Association. Diabetes Care. 2016.39(Suppl 1).Performed By: #### 16941-1, 2276-02 #### [facility] CLIA [id number] [address] [place], [place] [address] [place] AMERICAPotassium [Moles/Vol]4.7 mmol/LNormal3.7-5.1CCleveland Clinic [facility] on above:Order Comment: Specimen Type: BLOOD SPECIMEN Ordering Facility: [facility] Address: [address] [place], [place] [address]Performed By: #### 00345-9, 2276-02 #### [facility] CLIA [id number] [address] [place] [address] [place] AMERICAProtein [Mass/Vol]6.4 g/dL Normal6.3-8.0[facility] on above:Order Comment: Specimen Type: BLOOD SPECIMEN Ordering Facility: [facility] Address: [address] [place], [place] [address]Performed By: #### 26189-3, 2276-02 #### [facility] CLIA [id number] [address] [place] [address] [place] AMERICASodium [Moles/Vol]137 mmol/L Edbade188-114PoxabmozvSelect Medical Specialty Hospital - [place] on above:Order Comment: Specimen Type: BLOOD SPECIMEN Ordering Facility: [facility] Address: [address] [place], [place] [address]Performed By: #### 53920-7, 2276-02 #### [facility] CLIA [id number] [address] [place] [address] [place] AMERICAUrea nitrogen [Mass/Vol]33 mg/dLHigh7-21[facility] on above:Order Comment: Specimen Type: BLOOD SPECIMEN Ordering Facility: [facility] Address: [address] [place], [place] [address]Performed By: #### 45483-6, 2276-02 #### [facility] CLIA [id number] [address] [place] [address] [place] AMERICAFerritin SerPl-mCncon 61-46-8035Tbuqmshc [Mass/Vol]528.0 ng/hHNlpd58.7-205.1CCleveland Clinic [facility] Comment on above:Order Comment: Specimen Type: BLOOD SPECIMEN Ordering Facility: [facility] Address: [address] [place], [place] [address]Performed By: #### 32265-9, 6-4 #### [facility] CLIA [id number] [address] [place] [address] [place] AMERICAIron and Iron binding capacity panelon 75-20-8420Fkbl [Mass/Vol]64 ug/bBNjnyzg98-674SroupxcuzBucyrus Community HospitalComment on above:Order Comment: Specimen Type: BLOOD SPECIMEN Ordering Facility: [facility] Address: [address] [place], [place] [address]Performed By: #### 98310-0, 4 #### [facility] CLIA [id number] [address] [place] [address] [place] AMERICAIron binding capacity [Mass/Vol]331 ug/xKKfzgmc739-532GzfpbtiqhBucyrus Community HospitalComment on above:Order Comment: Specimen Type: BLOOD SPECIMEN Ordering Facility: [facility] Address: [address] [place], [place] [address]Performed By: #### 80104-5, 2275-4 #### [facility] CLIA [id number] [address] [place] [address] [place] AMERICAIron/TIBC [Molar ratio]19.3 %Mzbfog07.0-57.0[facility] on above:Order Comment: Specimen Type: BLOOD SPECIMEN Ordering Facility: [facility] Address: [address] [place], [place] [address]Performed By: #### 23749-8, 2275- #### [facility] CLIA [id number] [address] [place] [address] [place] AMERICARetics #on 10-07-2024 Reticulocytes (Bld) [#/Vol]0.21750 10*3/uLHigh0.018-0.100[facility] on above:Order Comment: Specimen Type: BLOOD SPECIMENOrdering Facility: [facility] Address:[address] [place], [place] [address]Performed By: #### 64672-6, 95400-6 ####[facility] [id number] [place], [place] [address]Hvzcjwlnhrzam (Bld) [#/Vol]on 19-87-9528Xswkeugpqnnku/100 RBC (Bld)3.5 %High0.4-2.0[facility] on above:Order Comment: Specimen Type: BLOOD SPECIMENOrdering Facility: [facility] Address:[address] [place], [place] [address]Performed By: #### 81998-6, 17833-6 ####[facility] [id number] [place], [place] [address]Kbqhgedxzb Visit Summaryon 80-28-7024Iguxhjnawu Visit SummaryAmbulatory Visit Summary ANH TEJEDA :1950 Visit Date:09/29/2024 [...] mg Cap) glimepiride (glimepiride 2 mg Tab) hydrochlorothiazide-lisinopril (hydrochlorothiazide-lisinopril 12.5 mg-20 mg Tab) omeprazole (omeprazole 20 mg Cap-DR) resmetirom (Rezdiffra 80 mg oral tablet) ropinirole (ropinirole 0.5 mg Tab) sitagliptin (Januvia 50 mg Tab) Procedures Performed Carpal tunnel (02/29/2024), Colonoscopy (06/12/2022), Esophagogastroduodenoscopy (06/12/2022), Scarmanagement. Discharge Vitals Heart Rate (Peripheral) 74 Blood [...] Obesity due to excess calories Pickup at [facility]/pharmacy #[id number] Unchanged allopurinol (allopurinol 100 mg Tab) 1 Tablets By Mouth 2 times a day Contact prescribingphysician if questions or concerns Unchanged ascorbic acid (ascorbic acid 500 mg Tab) 1 Tablets By Mouth Every day Contact prescribingphysician if questions or concerns Unchanged aspirin (aspirin [...] prescribing physician if questions or concerns Unchanged hydrochlorothiazide-lisinopril (hydrochlorothiazide-lisinopril 12.5 mg-20 mg Tab) 1 Tablets By Mouth Every day Contact prescribing physician if questions or concerns Unchanged Non-Formulary Medication (Magnesium) Contact prescribing physician if questions or concerns Unchanged omeprazole (omeprazole 20 mg Cap-) Contact prescribing physician if questions or concerns Unchanged resmetirom (Rezdiffra 80 mg oral tablet) Contact prescribing physician if questions or concerns Unchanged ropinirole (ropinirole 0.5 mg Tab) 2 Tablets By Mouth At bedtime Contact prescribing physician if questions or concerns Unchanged sitagliptin (Januvia 50 mg Tab) Contact prescribing physician if questions or concerns Pharmacy Information [facility]/pharmacy #[id number]: [address] [place], [place] [id number] [phone] Allergies Tylenol with Codeine #3 (Upset stomach) [...] you for choosing us (more content not included)...Normal [facility] HospitalGastroenterology Office/Clinic Noteon 09-29-2024 Gastroenterology Office/Clinic NoteGastroenterology Office/Clinic Note Chief Complaint Itching continues from [...] systems reviewed, negative except (more content not included)...[facility] HospitalComment on above:Result Comment: Electronically Signed By: Shanel DONG, Verónica Finch\.br\Date and Time Signed: 09/29/2410:08 ESTAlanine aminotransferase [Enzymatic activity/volume] in Serum or PlasmaOrdered By: Vinay Matta on 68-53-1836THF [Catalytic activity/Vol]15 U/LNormal [facility] Medical CenterComment on above:Order Comment: A1C IS NOT DUE UNTIL OCTOBER.Performed By: #### MG, CMP, CBC, LIPID #### [facility] [address] [place] [address] [place] [Catalytic activity/Vol]Alanine aminotransferase [Enzymatic activity/volume] in Serum or PlasmaPremier Health Atrium Medical CenterAlbumin [Mass/volume] in Serum or Plasma by Bromocresol green (BCG) dye binding methoOrdered By: Vinay Bunting on 28-33-0269Eoedvxy BCG dye [Mass/Vol] 4.0 g/dL3.5-5.7FTrinity Health System East CampusAlbumin BCG dye [Mass/Vol] Albumin [Mass/volume] in Serum or Plasma by Bromocresol green (BCG) dye binding metho3.5-5.7FTrinity Health System East CampusAlkaline phosphatase [Enzymatic activity/volume] in Serum or PlasmaOrdered By: Vinay Bunting on 71-23-7671XFS [Catalytic activity/Vol]141 U/SSqlx49-124Moguzof[address] [place] [address] Comment on above:Order Comment: A1C IS NOT DUE UNTIL OCTOBER.Performed By: #### MG, CMP, CBC, LIPID #### [facility] [address] [place] [address] USAALP [Catalytic activity/Vol]Alkaline phosphatase [Enzymatic activity/volume] in Serum or AeitrsZezz28-543Nmvchmayk30 Young StreetAspartate aminotransferase [Enzymatic activity/volume] in Serum or PlasmaOrdered By: Vinay Bunting on 68-08-4157EML [Catalytic activity/Vol]16 U/L Gyakjy72-53Jamqyvpuw96 Mcguire StreetComment on above:Order Comment: A1C IS NOT DUE UNTIL OCTOBER.Performed By: #### MG, CMP, CBC, LIPID #### [facility] [address] [place], [place] [address] USAAST [Catalytic activity/Vol]Aspartate aminotransferase [Enzymatic activity/volume] in Serum or Jbfotq17-24Zawldvvyr96 Mcguire StreetAutomated basophil %Ordered By: Vinay Bunting on 81-41-7062Sebhmgaxt/100 WBC (Bld)0.5 %Normal.[facility] Medical CenterComment on above:Order Comment: A1C IS NOT DUE UNTIL OCTOBER.Performed By: #### MG, CMP, CBC, LIPID #### [facility] [address] [place] [address] USAAutomated basophil countOrdered By: Vinay Bunting on 05-65-9877Ijrquvesv (Bld) [#/Vol]0.0 10*3/uLNormal0.0-0.2FTrinity Health System East CampusComment on above:Order Comment: A1C IS NOT DUE UNTIL OCTOBER. Result Comment: PERFORMED BY: [place] [address] PATHOLOGIST [employer] THERESA MULLER M.D.Performed By: #### MG, CMP, CBC, LIPID #### [place] [address] USAAutomated blood monocyte countOrdered By: Vinay Bunting on 04-05-5111Odknckfsi (Bld) [#/Vol]0.3 10*3/uLNormal0.0-0.8[facility] Medical CenterComment on above:Order Comment: A1C IS NOT DUE UNTIL OCTOBER. Performed By: #### MG, CMP, CBC, LIPID #### [place] [address] USAAutomated eosinophil %Ordered By: Vinay Bunting on 26-70-6763Nlglkolvweo/100 WBC (Bld)2.9 %Normal.[facility] Comment on above:Order Comment: A1C IS NOT DUE UNTIL OCTOBER.Performed By: #### MG, CMP, CBC, LIPID #### [place] [address] USAAutomated eosinophil countOrdered By: Vinay Bunting on 24-02-5612Vhjiilhuvrw (Bld) [#/Vol]0.2 10*3/uLNormal0.0-0.45[facility] Medical CenterComment on above:Order Comment: A1C IS NOT DUE UNTIL OCTOBER. Performed By: #### MG, CMP, CBC, LIPID #### [place] [address] USAAutomated monocyte %Ordered By: Vinay Bunting on 40-35-5218Malxatjhk/100 WBC (Bld)5.0 %Normal.[facility] Comment on above:Order Comment: A1C IS NOT DUE UNTIL OCTOBER.Performed By: #### MG, CMP, CBC, LIPID #### [place] [address] USAAutomated neutrophil %Ordered By: Vinay Bunting on 95-30-2520Awnucttimet/100 WBC (Bld)64.0 %Normal.[facility] Medical CenterComment on above:Order Comment: A1C IS NOT DUE UNTIL OCTOBER.Performed By: #### MG, CMP, CBC, LIPID #### [facility] [address] [place] [address] USABasophils Auto (Bld) [#/Vol]Ordered By: Vinay Bunting on 73-40-5509Nhgdyedhc (Bld) [#/Vol]Automated basophil count0.0-0.2FTrinity Health System East CampusBasophils/100 WBC Auto (Bld)Ordered By: Vinay Bunting on 99-09-6647Vspcxribl/100 WBC (Bld)Automated basophil %.[facility] Medical CenterBilirubin.total [Mass/volume] in Serum or PlasmaOrdered By: Vinay Bunting on 55-18-9341Hcbccixdn [Mass/Vol]0.8 mg/dLNormal0.3-1.0[facility] Medical CenterComment on above:Order Comment: A1C IS NOT DUE UNTIL OCTOBER.Performed By: #### MG, CMP, CBC, LIPID #### [facility] [address] [place] [address] USABilirubin [Mass/Vol]Bilirubin.total [Mass/volume] in Serum or Plasma0.3-1.0[facility] Medical CenterCalcium [Mass/volume] in Serum or PlasmaOrdered By: Vinay Bunting on 64-46-9330Mkrglvt [Mass/Vol]9.1 mg/dL Normal8.6-10.3FTrinity Health System East CampusComment on above:Order Comment: A1C IS NOT DUE UNTIL OCTOBER.Performed By: #### MG, CMP, CBC, LIPID #### [facility] [address] [place] [address] USACalcium [Mass/Vol]Calcium [Mass/volume] in Serum or Plasma 8.6-10.3FTrinity Health System East CampusCarbon dioxide, total [Moles/volume] in Serum or PlasmaOrdered By: Vinay Bunting on 23-89-7932KE0 [Moles/Vol]31.3 mmol/LHigh21.0-31.0[facility] Medical CenterComment on above:Order Comment: A1C IS NOT DUE UNTIL OCTOBER.Performed By: #### MG, CMP, CBC, LIPID #### [facility] [address] [place] [address] USACO2 [Moles/Vol]Carbon dioxide, total [Moles/volume] in Serum or QgvdptVjil14.0-31.0[facility] Medical CenterChloride [Moles/volume] in Serum or PlasmaOrdered By: Vinay Matta on 09-19-2024 Chloride [Moles/Vol]101 mmol/UFvugis85-875Sbazmyg[address] [place] [address] Comment on above:Order Comment: A1C IS NOT DUE UNTIL OCTOBER.Performed By: #### MG, CMP, CBC, LIPID #### [facility] [address] [place] [address] USAChloride [Moles/Vol]Chloride [Moles/volume] in Serum or Ccggst48-268JfbijskvfPremier Health Atrium Medical CenterCholesterol [Mass/volume] in Serum or PlasmaOrdered By: Vinay Matta on 31-80-2446Joluewceqxu [Mass/Vol]132 mg/dL Xxl029-669KlypacyuaPremier Health Atrium Medical CenterComment on above:Chol less than 200 mg/dl low riskChol 201-239 mg/dl borderline riskChol 240 mg/dl and greater high riskOrder Comment: A1C IS NOT DUE UNTIL OCTOBER.Result Comment: Chol less than 200 mg/dl low risk Chol 201-239 mg/dl borderline risk Chol 240 mg/dl and greater high riskPerformed By: #### MG, CMP, CBC, LIPID #### [facility] [address] [place] [address] USACholesterol [Mass/Vol]Cholesterol [Mass/volume] in Serum or EajtwxGon030-632BrnmscwrrPremier Health Atrium Medical CenterComment on above:Chol less than 200 mg/dl low riskChol 201-239 mg/dl borderline riskChol 240 mg/dl and greater high riskCholesterol in HDL [Mass/volume] in Serum or PlasmaOrdered By: Vinay Matta on 08-01-3807Gznrorryago in HDL [Mass/Vol]Serum or plasma high density lipoprotein (HDL) cholesterol kjoyxfffbiu81-04NljallybaPremier Health Atrium Medical CenterComment on above:HDL CHOL ATP-III CLASSIFICATION Cardiovascular RiskHDL > or equal to 60 mg/dL LOWHDL < 40 mg/dL HIGHCholesterol in LDL Calc [Mass/Vol] Ordered By: Vinay Matta on 14-76-6071Fyxluqhmpwa in LDL [Mass/Vol]61 mg/dL 0-100[facility] Medical CenterComment on above:LDL ATP III CLASSIFICATIONLDL less than 100 mg/dL OptimalLDL 100-129 mg/dL Near or above tsaizirCEY451-536 mg/dL Borderline highLDL 160-189 mg/dL HighLDL greater than 189 mg/dL Very highCholesterol in LDL [Mass/Vol]Cholesterol in LDL [Mass/volume] in Serum or Plasma by calculation0[facility] Medical CenterComment on above:LDL ATP III CLASSIFICATIONLDL less than 100 mg/dL OptimalLDL 100-129 mg/dL Near or above ctwbnbnMLM631-929 mg/dL Borderline highLDL 160-189 mg/dL HighLDL greater than 189 mg/dL Very highCholesterol in VLDL Calc [Mass/Vol] Ordered By: Vinay Matta on 18-95-0883Wnrlgqhyhfn in VLDL [Mass/Vol]30 mg/dL [facility] Medical CenterCholesterol in VLDL [Mass/Vol]Cholesterol in VLDL [Mass/volume] in Serum or Plasma by calculationPremier Health Atrium Medical CenterComplete Blood Count Auto Diffon 17-88-4667Bmsu Corpuscular HGB Conc35.0 g/vFAinbhj44.0-35.0The Pending Sale To [facility] Physician GroupComment on above:Order Comment: A1C IS NOT DUE UNTIL OCTOBER.Performed By: #### MG, CMP, CBC, LIPID #### [facility] [address] [place] [address] USANRBC%0.1 /100{WBC}Normal0-0.5The Pending Sale To [facility] Comment on above:Order Comment: A1C IS NOT DUE UNTIL OCTOBER.Performed By: #### MG, CMP, CBC, LIPID #### [facility] [address] [place] [address] USAComprehensive Metabolic Panelon 64-93-6322Vsjzxbs [Mass/Vol]4.0 g/dLNormal3.5-5.7The Pending Sale To [facility] Physician GroupComment on above: Order Comment: A1C IS NOT DUE UNTIL OCTOBER.Performed By: #### MG, CMP, CBC, LIPID #### [facility] [address] [place] [address] USAGFR/1.73 sq M.predicted MDRD (S/P/Bld) [Vol rate/Area] 32.214 mL/min/{1.73_m2}NormalThe Pending Sale To [facility] Health Physician GroupComment on above:Order Comment: A1C IS NOT DUE UNTIL OCTOBER.Performed By: #### MG, CMP, CBC, LIPID #### [facility] [address] [place] [address] USACreatinine [Mass/volume] in Serum or PlasmaOrdered By: Vinay Bunting on 02-49-1179Kzqmrwbquf [Mass/Vol]1.65 mg/dLHigh0.60-1.20 [facility] Medical CenterComment on above:Order Comment: A1C IS NOT DUE UNTIL OCTOBER.Performed By: #### MG, CMP, CBC, LIPID #### [facility] [address] [place] [address] USACreatinine [Mass/Vol]Creatinine [Mass/volume] in Serum or PlasmaHigh0.60-1.20[facility] Medical CenterEosinophils Auto (Bld) [#/Vol]Ordered By: Vinay Bunting on 49-68-2540Rsaxvlojfjx (Bld) [#/Vol] Automated eosinophil count0.0-0.45[facility] Eosinophils/100 WBC Auto (Bld)Ordered By: Vinay Bunting on 09-19-2024 Eosinophils/100 WBC (Bld)Automated eosinophil %.[facility] Medical CenterErythrocyte distribution width Auto (RBC) [Ratio]Ordered By: Vinay Bunting on 77-95-1687Rhnippmyabq distribution width (RBC) [Ratio]Erythrocyte distribution width [Ratio] by Automated hlbodIszr18.9-15.3FTrinity Health System East CampusErythrocyte distribution width [Ratio] by Automated countOrdered By: Vinay Bunting on 36-89-9974Ypihimgtard distribution width (RBC) [Ratio]16.3 %High11.9-15.3FTrinity Health System East CampusComment on above:Order Comment: A1C IS NOT DUE UNTIL OCTOBER.Performed By: #### MG, CMP, CBC, LIPID #### [facility] [address] [place] [address] USAErythrocytes [#/volume] in Blood by Automated countOrdered By: Vinay Matta on 81-00-8832YNX (Bld) [#/Vol]4.03 10*6/uLNormal3.60-5.00 [facility] Medical CenterComment on above:Order Comment: A1C IS NOT DUE UNTIL OCTOBER.Performed By: #### MG, CMP, CBC, LIPID #### [facility] [address] [place] [address] USAGlobulin Calc (S) [Mass/Vol]Ordered By: Vinay Matta on 98-38-6950Audmorbt (S) [Mass/Vol]Serum globulin measurement by calculation (mass/volume)[facility] Medical CenterGlucose [Mass/volume] in Serum or PlasmaOrdered By: Vinay Matta on 15-32-8824Blxyyuf [Mass/Vol]195 mg/dLHigh 70-100[facility] Medical CenterComment on above:ADA recommended reference rangeRandom Glucose Reference Range is dependent on time and content of last meal. Glucose of more than 200 mg/dL in a nonstressed, ambulatory subject supports the diagnosisof Diabetes Mellitus.Order Comment: A1C IS NOT DUE UNTIL OCTOBER.Result Comment: Random Glucose Reference Range is dependent on time and content of last meal. Glucose of more than 200 mg/dL in a nonstressed, ambulatory subject supports the diagnosis of Diabetes Mellitus. ADA recommended reference rangePerformed By: #### MG, CMP, CBC, LIPID #### [facility] [address] [place] [address] USAGlucose [Mass/Vol]Glucose [Mass/volume] in Serum or Plasma Esxs88-280JwozgjkihPremier Health Atrium Medical CenterComment on above:ADA recommended reference rangeRandom Glucose Reference Range is dependent on time and content of last meal. Glucose of more than 200 mg/dL in a nonstressed, ambulatory subject supports the diagnosisof Diabetes Mellitus.Hematocrit Auto (Bld) [Volume fraction]Ordered By: Vinay Matta on 17-16-1941Opbpmuwzzi (Bld) [Volume fraction]Hematocrit [Volume Fraction] of Blood by Automated count34.0-46.4 [facility] Medical CenterHematocrit [Volume Fraction] of Blood by Automated countOrdered By: Vinay Matta on 00-76-3688Uynmgzyooz (Bld) [Volume fraction]34.1 %Odpafv01.0-46.4FTrinity Health System East CampusComment on above: Order Comment: A1C IS NOT DUE UNTIL OCTOBER.Performed By: #### MG, CMP, CBC, LIPID #### [facility] [address] [id number] USAHemoglobin [Mass/volume] in BloodOrdered By: Vinay Matta on 45-47-5881Cntreesrni (Bld) [Mass/Vol]12.0 g/wWDczlal76.8-15.4 [facility] CenterComment on above:Order Comment: A1C IS NOT DUE UNTIL OCTOBER.Performed By: #### MG, CMP, CBC, LIPID #### [facility] [address] [place] [address] USAHemoglobin (Bld) [Mass/Vol]Hemoglobin [Mass/volume] in Blood11.8-15.4FTrinity Health System East CampusLeukocytes [#/volume] corrected for nucleated erythrocytes in Blood by Automated counOrdered By: Vinay Matta on 29-43-4747XMS corrected for nucl RBC Auto (Bld) [#/Vol]5.5 10*3/uL3.8-11.6 [facility] CenterWBC corrected for nucl RBC Auto (Bld) [#/Vol] Leukocytes [#/volume] corrected for nucleated erythrocytes in Blood by Automated coun3.8-11.6FTrinity Health System East CampusLeukocytes [#/volume] in Blood by Automated countOrdered By: Vinay Matta on 45-24-1299POK (Bld) [#/Vol]5.5 10*3/uLNormal3.8-11.6FTrinity Health System East CampusComment on above:Order Comment: A1C IS NOT DUE UNTIL OCTOBER.Performed By: #### MG, CMP, CBC, LIPID #### [facility] [address] [place] [address] USALipid Panelon 89-78-1557YKF Cholesterol,Rjnlveleff26 mg/dL Normal0-100The Pending Sale To [facility] Physician GroupComment on above:Order Comment: A1C IS NOT DUE UNTIL OCTOBER.Result Comment: LDL ATP III CLASSIFICATION LDL less than 100 mg/dL Optimal LDL 100-129 mg/dL Near or above optimal LDL 130-159 mg/dL Borderline high LDL 160-189 mg/dL High LDL greater than 189 mg/dL Very highPerformed By: #### MG, CMP, CBC, LIPID #### [facility] [address] [id number] USATriglyceride w/Vkqjgy630 mg/dLHigh0-149The Pending Sale To [facility] Physician GroupComment on above:Order Comment: A1C IS NOT DUE UNTIL OCTOBER. Result Comment: TRIG ATP III CLASSIFICATION TRIG less than 150 mg/dL Normal TRIG 150-199 mg/dL Borderline high TRIG 200-500 mg/dL High TRIG greater than 500 mg/dL Very high Standard traceable to the Center for Disease Conrtrol and Prevention (CDC) test method.Performed By: #### MG, CMP, CBC, LIPID #### [facility] [address] [id number] USAVLDL SYYALQEPJQR09 mg/dLNoAtrium Health [facility] Physician [facility] HospitalComment on above:Order Comment: A1C IS NOT DUE UNTIL OCTOBER.Performed By: #### MG, CMP, CBC, LIPID #### [place] [id number] USALymphocytes Auto (Bld) [#/Vol]Ordered By: Vinay Matta on 27-33-9680Mmnaoicugrq (Bld) [#/Vol]Lymphocytes [#/volume] in Blood by Automated count1.00-4.8[facility] Medical CenterLymphocytes [#/volume] in Blood by Automated countOrdered By: Vinay Matta on 38-82-7720Nwkwwbcheve (Bld) [#/Vol]1.5 10*3/uLNormal1.00-4.8[facility] Medical CenterComment on above:Order Comment: A1C IS NOT DUE UNTIL OCTOBER.Performed By: #### MG, CMP, CBC, LIPID #### [facility] [address] [id number] USALymphocytes/100 WBC Auto (Bld)Ordered By: Vinay Bunhomer on 46-22-6760Ezahvxvpmja/100 WBC (Bld)Lymphocytes/100 leukocytes in Blood by Automated count.[facility] Medical CenterLymphocytes/100 leukocytes in Blood by Automated countOrdered By: Vinay Bunting on 96-38-2576Qsrdbrvluqx/100 WBC (Bld)27.6 %Normal.[facility] Medical CenterComment on above:Order Comment: A1C IS NOT DUE UNTIL OCTOBER.Performed By: #### MG, CMP, CBC, LIPID #### [facility] [address] Auto (RBC) [Entitic mass]Ordered By: Vinay Bunting on 56-18-7967RJB (RBC) [Entitic mass]MCH [Entitic mass] by Automated count24.7-34.3 [place] [Entitic mass] by Automated countOrdered By: Vinay Bunting on 92-87-1311YOE (RBC) [Entitic mass]29.7 cdTuxeyh23.7-34.3 [facility] Medical CenterComment on above:Order Comment: A1C IS NOT DUE UNTIL OCTOBER.Performed By: #### MG, CMP, CBC, LIPID #### [facility] [address] [id number] [facility] Auto (RBC) [Mass/Vol]Ordered By: Vinay Bunting on 21-95-1496SBWS (RBC) [Mass/Vol]35.0 g/dL32.0-35.0ProMedica Flower HospitalHC (RBC) [Mass/Vol]MCHC [Mass/volume] by Automated count32.0-35.0 [facility] Auto (RBC) [Entitic vol]Ordered By: Vinay Bunting on 11-04-0362LPC (RBC) [Entitic vol]MCV [Entitic volume] by Automated agfaw62-875TqioeygsrProMedica Flower HospitalV [Entitic volume] by Automated countOrdered By: Vinay Bunting on 59-25-2553AEG (RBC) [Entitic vol]84.7 fL Eoqomi44-649YfztrabtaPremier Health Atrium Medical CenterComment on above:Order Comment: A1C IS NOT DUE UNTIL OCTOBER.Performed By: #### MG, CMP, CBC, LIPID #### [facility] [address] [place] [address] USAMagnesium [Mass/volume] in Serum or PlasmaOrdered By: Vinay Bunting on 89-67-0683Whgeksqpd [Mass/Vol]1.3 mg/dLLow1.9-2.7FTrinity Health System East CampusComment on above:Order Comment: A1C IS NOT DUE UNTIL OCTOBER.Performed By: #### MG, CMP, CBC, LIPID #### [facility] [address] [place] [address] USAMagnesium [Mass/Vol]Magnesium [Mass/volume] in Serum or PlasmaLow1.9-2.7FTrinity Health System East CampusMonocytes Auto (Bld) [#/Vol] Ordered By: Vinay Bunting on 34-24-1655Bjfdtcpbz (Bld) [#/Vol]Automated blood monocyte count0.0-0.8[facility] Medical CenterMonocytes/100 WBC Auto (Bld)Ordered By: Vinay Bunting on 21-24-4724Fodfqrfyu/100 WBC (Bld)Automated monocyte %.[facility] Medical CenterNeutrophils Auto (Bld) [#/Vol] Ordered By: Vinay Bunting on 85-77-0488Ymuuroobzrd (Bld) [#/Vol]Neutrophils [#/volume] in Blood by Automated count1.8-7.7FTrinity Health System East Campus Neutrophils [#/volume] in Blood by Automated countOrdered By: Vinay Bunting on 21-74-8020Diawdbqekvc (Bld) [#/Vol]3.5 10*3/uLNormal1.8-7.7FTrinity Health System East CampusComment on above:Order Comment: A1C IS NOT DUE UNTIL OCTOBER. Performed By: #### MG, CMP, CBC, LIPID #### [facility] [address] [place] [address] USANeutrophils/100 WBC Auto (Bld)Ordered By: Vinay Bunting on 15-83-1780Rowdldfabrr/100 WBC (Bld)Automated neutrophil %.[facility] CenterNo Panel InformationOrdered By: Vinay Bunting on 09-19-2024 Estimated GFR (CKD-EPI)32.214 mL/MinPremier Health Atrium Medical CenterPharmacy Creatinine Clearance (ChemN/AFTrinity Health System East CampusNucleated erythrocytes [Presence] in Blood by Automated countOrdered By: Vinay Bunting on 50-39-3576Duptkfzmr RBC Auto Ql (Bld)0.1 /100{WBC}0-0.5FTrinity Health System East CampusNucleated RBC Auto Ql (Bld)Nucleated erythrocytes [Presence] in Blood by Automated count0-0.5FTrinity Health System East CampusPlatelet mean volume Auto (Bld) [Entitic vol]Ordered By: Vinay Bunting on 28-78-6260Nclxzved mean volume (Bld) [Entitic vol]Platelet mean volume [Entitic volume] in Blood by Automated count6.3-10.7FTrinity Health System East CampusPlatelet mean volume [Entitic volume] in Blood by Automated countOrdered By: Vinay Bunting on 18-25-7407Lluoinyt mean volume (Bld) [Entitic vol]7.2 fLNormal6.3-10.7FTrinity Health System East CampusComment on above:Order Comment: A1C IS NOT DUE UNTIL OCTOBER.Performed By: #### MG, CMP, CBC, LIPID #### [facility] [address] [id number] USAPlatelets Auto (Bld) [#/Vol]Ordered By: Vinay Bunting on 81-02-5632Cqvfhtmkb (Bld) [#/Vol]Platelets [#/volume] in Blood by Automated qbfalWul535-438Luefuj[address] [place], [place] [address]Platelets [#/volume] in Blood by Automated countOrdered By: Vinay Bunting on 14-30-0849Ireljwkfy (Bld) [#/Vol] 145 10*3/qHQmd230-497Pxhawlkl[address] [place], [place] [address]Comment on above:Order Comment: A1C IS NOT DUE UNTIL OCTOBER.Performed By: #### MG, CMP, CBC, LIPID #### [facility] [address] [place] [address] USAPotassium [Moles/volume] in Serum or PlasmaOrdered By: Vinay Bunting on 94-45-8618Tdacpizcf [Moles/Vol]5.1 mmol/LNormal3.5-5.1 [facility] CenterComment on above:Order Comment: A1C IS NOT DUE UNTIL OCTOBER.Performed By: #### MG, CMP, CBC, LIPID #### [facility] [address] [place] [address] USAPotassium [Moles/Vol]Potassium [Moles/volume] in Serum or Plasma3.5-5.1FTrinity Health System East CampusProtein [Mass/volume] in Serum or PlasmaOrdered By: Vinay Bunting on 17-76-2676Hnrnslh [Mass/Vol]6.2 g/dLLow 6.4-8.9[facility] Medical CenterComment on above:Order Comment: A1C IS NOT DUE UNTIL OCTOBER.Performed By: #### MG, CMP, CBC, LIPID #### [facility] [address] [place] [address] USAProtein [Mass/Vol]Protein [Mass/volume] in Serum or Plasma Low6.4-8.9[facility] Medical CenterRBC Auto (Bld) [#/Vol]Ordered By: Vinay Bunting on 08-79-4447ICF (Bld) [#/Vol]Erythrocytes [#/volume] in Blood by Automated count3.60-5.00[facility] Medical Centererum globulin measurement by calculation (mass/volume)Ordered By: Vinay Bunting on 09-19-2024 Globulin (S) [Mass/Vol]2.2 g/dLNormalPremier Health Atrium Medical CenterComment on above:Order Comment: A1C IS NOT DUE UNTIL OCTOBER.Performed By: #### MG, CMP, CBC, LIPID #### [facility] [address] [place] [address] USASerum or plasma albumin/globulin mass ratioOrdered By: Vinay Bunting on 24-44-0024Vtalbor/Globulin [Mass ratio]1.8 {ratio}Normal [facility] CenterComment on above:Order Comment: A1C IS NOT DUE UNTIL OCTOBER.Performed By: #### MG, CMP, CBC, LIPID #### [facility] [address] [place] [address] USAAlbumin/Globulin [Mass ratio]Serum or plasma albumin/globulin mass ratioMercy Health St. Vincent Medical Centererum or plasma anion gap determinationOrdered By: Vinay Matta on 26-15-0562Rrzwe gap [Moles/Vol]11.8 mmol/LNormal6.0-15.0[facility] CenterComment on above:Order Comment: A1C IS NOT DUE UNTIL OCTOBER.Performed By: #### MG, CMP, CBC, LIPID #### [facility] [address] [place] [address] USAAnion gap [Moles/Vol]Serum or plasma anion gap determination6.0-15.0[facility] Medical Centererum or plasma high density lipoprotein (HDL) cholesterol measurementOrdered By: Vinay Matta on 15-35-0111Wndeddmlytg in HDL [Mass/Vol]41 mg/bRAbeptf79-24BkcxxoukfPremier Health Atrium Medical CenterComment on above:HDL CHOL ATP-III CLASSIFICATION Cardiovascular RiskHDL > or equal to 60 mg/dL LOWHDL < 40 mg/dL HIGHOrder Comment: A1C IS NOT DUE UNTIL OCTOBER.Result Comment: HDL CHOL ATP-III CLASSIFICATION Cardiovascular Risk HDL > or equal to 60 mg/dL LOW HDL < 40 mg/dL HIGHPerformed By: #### MG, CMP, CBC, LIPID #### [facility] [address] [place] [address] USASerum or plasma total cholesterol/high density lipoprotein (HDL) cholesterol mass ratOrdered By: Vinay Matta on 09-19-2024 Cholesterol.total/Cholesterol in HDL [Mass ratio]3.2 {ratio}Normal<5.0[facility] Medical CenterComment on above:Order Comment: A1C IS NOT DUE UNTIL OCTOBER.Result Comment: PERFORMED BY: [facility] [address] [place] [address] PATHOLOGIST [employer] THERESA MULLER M.D.Performed By: #### MG, CMP, CBC, LIPID #### [facility] [address] [place] [address] USACholesterol.total/Cholesterol in HDL [Mass ratio]Serum or plasma total cholesterol/high density lipoprotein (HDL) cholesterol mass rat<5.[address] [facility] Medical Centerodium [Moles/volume] in Serum or PlasmaOrdered By: Vinay Bunting on 32-01-0903Vdmiml [Moles/Vol]139 mmol/UWniqdf415-002 [facility] CenterComment on above:Order Comment: A1C IS NOT DUE UNTIL OCTOBER.Performed By: #### MG, CMP, CBC, LIPID #### [facility] [address] [place] [address] USASodium [Moles/Vol]Sodium [Moles/volume] in Serum or Plasma 136-145Prem[facility] Medical CenterTriglyceride [Mass/volume] in Serum or PlasmaOrdered By: Vinay Bunting on 59-79-5890Kojhhbpkyoif [Mass/Vol]151 mg/dL High0-149[facility] Medical CenterComment on above:TRIG ATP III CLASSIFICATIONTRIG less than 150 mg/dL NormalTRIG 150-199 mg/dL Borderline highTRIG 200-500 mg/dL High TRIG greater than 500 mg/dL Very highStandard traceable to the Center for Disease Conrtrol and Prevention (CDC) test method. Triglyceride [Mass/Vol]Triglyceride [Mass/volume] in Serum or PlasmaHigh0-149 [facility] CenterComment on above:TRIG ATP III CLASSIFICATIONTRIG less than 150 mg/dL NormalTRIG 150-199 mg/dL Borderline highTRIG 200-500 mg/dL High TRIG greater than 500 mg/dL Very highStandard traceable to the Center for Disease Conrtrol and Prevention (CDC) test method. Urea nitrogen [Mass/volume] in Serum or PlasmaOrdered By: Vinay Bunting on 00-12-1896Xlcy nitrogen [Mass/Vol]33 mg/dLHigh7-25[facility] CenterComment on above:Order Comment: A1C IS NOT DUE UNTIL OCTOBER.Performed By: #### MG, CMP, CBC, LIPID #### [facility] [address] [place] [address] USAUrea nitrogen [Mass/Vol]Urea nitrogen [Mass/volume] in Serum or PlasmaPlateau Medical Center7-25[facility] Medical CenterWBC Auto (Bld) [#/Vol] Ordered By: Vinay Bunting on 18-59-7208TUP (Bld) [#/Vol]Leukocytes [#/volume] in Blood by Automated count3.8-11.6FTrinity Health System East CampusAlanine aminotransferase [Enzymatic activity/volume] in Serum or PlasmaOrdered By: Obaydah Daromar on 67-39-8144YUG [Catalytic activity/Vol]17 U/L7-52Prem[facility] Medical CenterAlbumin [Mass/volume] in Serum or Plasma by Bromocresol green (BCG) dye binding methoOrdered By: Obaydah Daromar on 14-82-7919Egcfrlb BCG dye [Mass/Vol]3.9 g/dL3.5-5.7FTrinity Health System East CampusAlkaline phosphatase [Enzymatic activity/volume] in Serum or PlasmaOrdered By: Obaydah Daromar on 50-06-1331WUE [Catalytic activity/Vol]122 U/KLfjo79-467SalkvysebPremier Health Atrium Medical CenterAspartate aminotransferase [Enzymatic activity/volume] in Serum or PlasmaOrdered By: Obaydah Daromar on 29-15-7447YJZ [Catalytic activity/Vol]17 U/Y58-42PfwncjhnaPremier Health Atrium Medical CenterBasophils Auto (Bld) [#/Vol]Ordered By: Obaydah Daromar on 77-64-2147Ufmxqaadk (Bld) [#/Vol]0.0 10*3/uL0.0-0.2FTrinity Health System East CampusBasophils/100 WBC Auto (Bld) Ordered By: Obaydah Daromar on 06-79-8517Pssxungff/100 WBC (Bld)0.4 %.[facility] Medical CenterBilirubin.total [Mass/volume] in Serum or PlasmaOrdered By: Obaydah Daromar on 39-87-2513Hcgfxfddm [Mass/Vol]0.5 mg/dL0.3-1.0[facility] Medical CenterCalcium [Mass/volume] in Serum or PlasmaOrdered By: Obaydah Daromar on 03-04-5470Leiiaeo [Mass/Vol]9.2 mg/dL8.6-10.3FTrinity Health System East CampusCarbon dioxide, total [Moles/volume] in Serum or Plasma Ordered By: Obaydah Daromar on 78-42-6232NE3 [Moles/Vol]24.9 mmol/L21.0-31.0 [facility] Medical CenterChloride [Moles/volume] in Serum or Plasma Ordered By: Comfort Monteiro on 50-18-4212Csrbwual [Moles/Vol]104 mmol/L98-107 [facility] Medical CenterCreatinine [Mass/volume] in Serum or Plasma Ordered By: Comfort Ratliffomar on 28-68-0183Coueuzzhzo [Mass/Vol]1.55 mg/dLHigh 0.60-1.20[facility] Medical CenterEosinophils Auto (Bld) [#/Vol]Ordered By: Dianne Gaudencioomar on 60-30-7814Gxpqeopaiec (Bld) [#/Vol]0.1 10*3/uL0.0-0.45 [facility] CenterEosinophils/100 WBC Auto (Bld)Ordered By: Dianne Gaudencioomar on 65-98-8616Pqnpvqlshgf/100 WBC (Bld)2.7 %.[facility] Medical CenterErythrocyte distribution width Auto (RBC) [Ratio]Ordered By: Comfort Ratliffomar on 98-82-0087Qcngjgnwatg distribution width (RBC) [Ratio]16.3 % High11.9-15.3FTrinity Health System East CampusGlobulin Calc (S) [Mass/Vol] Ordered By: Comfort Monteiro on 43-44-3404Dkcfpfpv (S) [Mass/Vol]2.4 g/dL [facility] Medical CenterGlucose Glucometer (BldC) [Mass/Vol]Ordered By: Comfort Ratliffomajosse on 61-22-0312Lghfxrs [Mass/Vol]239 mg/dLPremier Health Atrium Medical CenterComment on above:Random Glucose Reference Range is dependent on time and content of last meal. Glucose of more than 200 mg/dL in a nonstressed, ambulatory subject supports the diagnosis of Diabetes Mellitus.Glucose [Mass/volume] in Serum or PlasmaOrdered By: Comfort Ratliffomar on 53-42-6576Kdcmcki [Mass/Vol]142 mg/tWCzla14-817ZxldptoawPremier Health Atrium Medical CenterComment on above: Delta: 334 on 07/21/24-1025ADA recommended reference rangeRandom Glucose Reference Range is dependent on time and content of last meal. Glucose of more than 200 mg/dL in a nonstressed, ambulatory subject supports the diagnosis of Diabetes Mellitus.Hematocrit Auto (Bld) [Volume fraction]Ordered By: Comfort Monteiro on 23-25-6849Ljnacnajxg (Bld) [Volume fraction]32.0 %Low34.0-46.4 [facility] Medical CenterHemoglobin [Mass/volume] in BloodOrdered By: Comfort Ontiverosr on 83-82-8217Hezrtpltlg (Bld) [Mass/Vol]11.3 g/dLLow11.8-15.4 [facility] Medical CenterLeukocytes [#/volume] corrected for nucleated erythrocytes in Blood by Automated counOrdered By: Comfort Monteiro on 07-22-2024 WBC corrected for nucl RBC Auto (Bld) [#/Vol]5.4 10*3/uL3.8-11.6FTrinity Health System East CampusLymphocytes Auto (Bld) [#/Vol]Ordered By: Comfort Ratliffomar on 19-07-6314Wsrtagkkogx (Bld) [#/Vol]1.7 10*3/uL1.00-4.8[facility] Medical CenterLymphocytes/100 WBC Auto (Bld)Ordered By: Obalissa Ratliffomar on 06-54-1725Gdyscrkigak/100 WBC (Bld)31.4 %.[facility]Med[facility]lower HospitalH Auto (RBC) [Entitic mass]Ordered By: Comfort Ratliffomajosse on 03-12-7011EAV (RBC) [Entitic mass]30.3 pg24.7-34.3FTrinity Health System East CampusMCHC Auto (RBC) [Mass/Vol]Ordered By: Comfort Ratliffomar on 31-61-6930SYSM (RBC) [Mass/Vol]35.3 g/vUOutv41.0-35.0[facility] Medical CenterMCV Auto (RBC) [Entitic vol] Ordered By: Comfort Ratliffomar on 57-92-0028IOS (RBC) [Entitic vol]85.8 cU20-792 [facility] Medical CenterMonocytes Auto (Bld) [#/Vol]Ordered By: Comfort Ratliffomar on 90-01-5133Cxwcinpur (Bld) [#/Vol]0.3 10*3/uL0.0-0.8[facility] Medical CenterMonocytes/100 WBC Auto (Bld)Ordered By: Comfort Ratliffomar on 86-88-7948Oqhxsbgsz/100 WBC (Bld)5.5 %.[facility] Neutrophils Auto (Bld) [#/Vol]Ordered By: Obalissa Ratliffomar on 07-22-2024 Neutrophils (Bld) [#/Vol]3.3 10*3/uL1.8-7.7FTrinity Health System East Campus Neutrophils/100 WBC Auto (Bld)Ordered By: Obalissa Ratliffomar on 07-22-2024 Neutrophils/100 WBC (Bld)60.0 %.[facility] CenterNo Panel InformationOrdered By: Comfort Monteiro on 72-02-4955Bswhyawkt GFR (CKD-EPI) 34.723 mL/MinPremier Health Atrium Medical CenterPharmacy Creatinine Clearance (Chem35.10[facility] Medical CenterNucleated erythrocytes [Presence] in Blood by Automated countOrdered By: Comfort Monteiro on 15-63-0923Ogjfprrmw RBC Auto Ql (Bld)0.1 /100{WBC}0-0.5FTrinity Health System East CampusPlatelet mean volume Auto (Bld) [Entitic vol]Ordered By: Comfort Monteiro on 87-09-5517Fxnhnqnj mean volume (Bld) [Entitic vol]7.3 fL6.3-10.7FTrinity Health System East Campus Platelets Auto (Bld) [#/Vol]Ordered By: Cmofort Ratliffomar on 94-77-4081Ftsdcloro (Bld) [#/Vol]141 10*3/iBNys878-783EuhqzpokbPremier Health Atrium Medical CenterPotassium [Moles/volume] in Serum or PlasmaOrdered By: Comfort Ontiverosr on 07-22-2024 Potassium [Moles/Vol]4.0 mmol/L3.5-5.1FTrinity Health System East CampusProtein [Mass/volume] in Serum or PlasmaOrdered By: Diannedulce maria Ratliffomar on 35-09-1128Rohbuld [Mass/Vol]6.3 g/dLLow6.4-8.9[facility] Medical CenterRBC Auto (Bld) [#/Vol]Ordered By: Obberyldadulce maria Daromar on 34-57-9697TPJ (Bld) [#/Vol]3.73 10*6/uL 3.60-5.00[facility] Medical Centererum or plasma albumin/globulin mass ratioOrdered By: Obberyldadulce maria Daromar on 28-00-5799Tggudse/Globulin [Mass ratio]1.6 {ratio}[facility] Medical Centererum or plasma anion gap determination Ordered By: Obberyldadulce maria Ratliffomar on 57-82-8412Xfgvb gap [Moles/Vol]16.1 mmol/LHigh 6.0-15.0[facility] Vincent Medical Centerodium [Moles/volume] in Serum or PlasmaOrdered By: Obberyldadulce maria Daromar on 74-03-3380Ixzvps [Moles/Vol]141 mmol/L 136-145Prem[facility]rium Medical CenterUrea nitrogen [Mass/volume] in Serum or PlasmaOrdered By: Obberyldadulce maria Daromar on 90-23-6871Dubr nitrogen [Mass/Vol]37 mg/dL High7-25Prem[facility] Medical CenterWBC Auto (Bld) [#/Vol]Ordered By: Obberyldadulce maria Ratliffomar on 22-02-6684BGN (Bld) [#/Vol]5.4 10*3/uL3.8-11.6FTrinity Health System East CampusActivated partial thromboplastin time (aPTT) in platelet poor plasma by coagulation aOrdered By: Bakari Barboza on 06-22-6139cOCE Coag (PPP) [Time]35.2 s25.1-36.5FTrinity Health System East CampusComment on above:A hematocrit value greater than 55% may lead to inaccurate results in coagulation testing. Patientshaving hematocrit values >55% require a special collection tube for coagulation studies. Please contact the laboratory at [phone] for redraw instructions.Alanine aminotransferase [Enzymatic activity/volume] in Serum or PlasmaOrdered By: Bakari Barboza on 24-06-4041IWT [Catalytic activity/Vol] 18 U/L7-52Prem[facility] Medical CenterAlbumin [Mass/volume] in Serum or Plasma by Bromocresol green (BCG) dye binding methoOrdered By: Bakari Barboza on 31-42-9203Asxnkne BCG dye [Mass/Vol]4.1 g/dL3.5-5.7FTrinity Health System East CampusAlkaline phosphatase [Enzymatic activity/volume] in Serum or PlasmaOrdered By: Bakari Barboza on 73-95-9913MRV [Catalytic activity/Vol]147 U/EOpta84-401 [facility] Medical CenterAspartate aminotransferase [Enzymatic activity/volume] in Serum or PlasmaOrdered By: Bakari Barboza on 16-34-7378WJG [Catalytic activity/Vol]17 U/P78-36RqplirqcoPremier Health Atrium Medical CenterBasophils Auto (Bld) [#/Vol]Ordered By: Bakari Barboza on 00-31-2011Dnwrfdizw (Bld) [#/Vol] 0.0 10*3/uL0.0-0.2FTrinity Health System East CampusBasophils/100 WBC Auto (Bld) Ordered By: Bakari Barboza on 75-00-8791Bwpvaygjb/100 WBC (Bld)0.7 %.[facility] Medical CenterBilirubin Test strip Ql (U)Ordered By: Bakari Barboza on 90-86-6614Ohwiloyyl Ql (U)NegativeNegativePremier Health Atrium Medical Center Bilirubin.direct [Mass/volume] in Serum or PlasmaOrdered By: Bakari Barboza on 48-90-0855Vovnutlgt.direct [Mass/Vol]0.10 mg/dL0.03-0.18FTrinity Health System East CampusBilirubin.total [Mass/volume] in Serum or PlasmaOrdered By: Bakari Barboza on 40-86-5454Yuiwqnjke [Mass/Vol]0.4 mg/dL0.3-1.0[facility] Medical CenterCOVID CepheidOrdered By: Comfort Monteiro on 31-00-6427GKZC-CoV-2 (COVID-19) Ab IA QlNegativeNegativePremier Health Atrium Medical CenterComment on above:This is a duplicate Cepheid Xpert Xpress CoV-2/Flu/RSV Plus RNA by RT-PCR result to be used for statistical tracking purpose only.SARS-CoV-2 (COVID-19) RNA DIPESH+probe Ql (Unsp spec)[facility] CenterCalcium [Mass/volume] in Serum or PlasmaOrdered By: Bakari Barboza on 03-71-0506Ysodkor [Mass/Vol]9.3 mg/dL8.6-10.3FTrinity Health System East CampusCarbon dioxide, total [Moles/volume] in Serum or PlasmaOrdered By: Bakari Barboza on 90-44-5038EG1 [Moles/Vol]26.3 mmol/L21.0-31.0[facility] Medical CenterChloride [Moles/volume] in Serum or PlasmaOrdered By: Bakari Barboza on 90-61-9971Rowjxbyw [Moles/Vol]103 mmol/L99-139NokgdnwcnPremier Health Atrium Medical CenterCholesterol [Mass/volume] in Serum or PlasmaOrdered By: Comfort Monteiro on 07-21-2024 Cholesterol [Mass/Vol]112 mg/kHXdo007-122LdwpynftrPremier Health Atrium Medical Center Comment on above:Chol less than 200 mg/dl low riskChol 201-239 mg/dl borderline riskChol 240 mg/dl and greater high riskCholesterol in LDL Calc [Mass/Vol] Ordered By: Comfort Monteiro on 02-96-4565Zeytelttxxq in LDL [Mass/Vol]46 mg/dL 0-100Prem[facility] Medical CenterComment on above:LDL ATP III CLASSIFICATIONLDL less than 100 mg/dL OptimalLDL 100-129 mg/dL Near or above qmjsjqnKGA036-927 mg/dL Borderline highLDL 160-189 mg/dL HighLDL greater than 189 mg/dL Very highCholesterol in VLDL Calc [Mass/Vol]Ordered By: Comfort Monteiro on 54-65-9646Heylngjgzjl in VLDL [Mass/Vol]26 mg/dLPremier Health Atrium Medical CenterColor Auto (U)Ordered By: Bakari Barboza on 78-97-4743Atwra (U) Light-yellowYellowPremier Health Atrium Medical CenterCreatine kinase [Enzymatic activity/volume] in Serum or PlasmaOrdered By: Bakari Barboza on 94-79-0435YN [Catalytic activity/Vol]56 U/L38-484LlnedjhdePremier Health Atrium Medical CenterCreatinine [Mass/volume] in Serum or PlasmaOrdered By: Bakari Barboza on 38-38-2392Fdrrussrly [Mass/Vol]1.64 mg/dLHigh0.60-1.20[facility] CenterEosinophils Auto (Bld) [#/Vol]Ordered By: Bakari Barboza on 23-57-5402Pvilqyldsfh (Bld) [#/Vol] 0.1 10*3/uL0.0-0.45[facility] CenterEosinophils/100 WBC Auto (Bld)Ordered By: Bakari Barboza on 04-61-4194Sadrelnisuv/100 WBC (Bld)2.5 %. [facility] CenterErythrocyte distribution width Auto (RBC) [Ratio]Ordered By: Bakari Barboza on 25-48-0595Ixwaucikats distribution width (RBC) [Ratio]16.4 %High11.9-15.3FTrinity Health System East CampusGlobulin Calc (S) [Mass/Vol]Ordered By: Bakari Barboza on 47-25-2914Bkvwksqr (S) [Mass/Vol]2.5 g/dL [facility] CenterGlucose [Mass/volume] in Serum or PlasmaOrdered By: Bakari Barboza on 95-09-1796Ytvnqak [Mass/Vol]334 mg/uACfmr82-320PfyovwofmPremier Health Atrium Medical CenterComment on above:ADA recommended reference rangeRandom Glucose Reference Range is dependent on time and content of last meal. Glucose of more than 200 mg/dL in a nonstressed, ambulatory subject supports the diagnosisof Diabetes Mellitus.Glucose [Mass/volume] in Urine by Test strip Ordered By: Bakari Barboza on 31-79-3487Vwtgabh Test strip (U) [Mass/Vol]>=1000 mg/dLHighNormalPremier Health Atrium Medical CenterGlucose mean value [Mass/volume] in Blood Estimated from glycated hemoglobinOrdered By: Comfort Monteiro on 90-56-3499Guiqout glucose Estimated from glycated hemoglobin (Bld) [Mass/Vol]174 mg/dLPremier Health Atrium Medical CenterHematocrit Auto (Bld) [Volume fraction] Ordered By: Bakari Barboza on 54-62-4823Rciygffmae (Bld) [Volume fraction]31.7 %Low 34.0-46.4FTrinity Health System East CampusHemoglobin A1c percentageOrdered By: Comfort Monteiro on 36-32-4130DbD6i (Bld) [Mass fraction]7.7 %High4.3-5.6 [facility] CenterComment on above:Increased risk for diabetes: 5.7 - 6.4diabetes: >6.4glycemic control for adults with diabetes: <7.0 Hemoglobin Test strip Ql (U)Ordered By: Bakari Barboza on 14-11-1671Xkienfnvif Ql (U)NegativeNegCleveland Clinic Avon HospitalHemoglobin [Mass/volume] in BloodOrdered By: Bakari Barboza on 05-65-4538Ziulfvgkki (Bld) [Mass/Vol]11.0 g/dL Low11.8-15.4FTrinity Health System East CampusINR in Platelet poor plasma by Coagulation assayOrdered By: Bakari Barboza on 99-70-5965TIJ Coag (PPP) [Relative time]1.1 {INR}[facility] CenterComment on above:INR Therapeutic Range A) Pre- and Peroperative OAT started two weeks before surgery. NOT HIP SURGERY: 1.5 - 2.5 HIP SURGERY: 2 - 3B) Primary and secondary prevention of venous THROMBOSIS: 2 - 3C) Active venous thrombosis, pulmonary embolismand prevention of recurrent venous thrombosis: 2 - 3D) Prevention of arterial thromboembolismincluding patients with mechanical heart valves: 3 - 4.5Ketones Test strip Ql (U)Ordered By: Bakari Barboza on 87-58-4031Drtoblz Ql (U)Negative NegativePremier Health Atrium Medical CenterLeukocyte esterase [Presence] in Urine by Test stripOrdered By: Bakari Barboza on 42-55-2541Mkgfcecye esterase Test strip Ql (U)NegativeNegativePremier Health Atrium Medical CenterLeukocytes [#/volume] corrected for nucleated erythrocytes in Blood by Automated counOrdered By: Bakari Barboza on 54-46-2893MVI corrected for nucl RBC Auto (Bld) [#/Vol]4.8 10*3/uL 3.8-11.6FTrinity Health System East CampusLymphocytes Auto (Bld) [#/Vol]Ordered By: Bakari Barboza on 03-94-4990Cbldpuiudxj (Bld) [#/Vol]1.2 10*3/uL1.00-4.8 [facility] CenterLymphocytes/100 WBC Auto (Bld)Ordered By: Bakari Barboza on 40-02-3739Olnnvxnyizj/100 WBC (Bld)24.6 %.[place] Auto (RBC) [Entitic mass]Ordered By: Bakari Barboza on 42-75-3661CQC (RBC) [Entitic mass]30.2 pg24.7-34.3FTrinity Health SystemHC Auto (RBC) [Mass/Vol]Ordered By: Bakari Barboza on 73-37-8990WOIU (RBC) [Mass/Vol]34.8 g/dL32.0-35.0ProMed[facility] Flower HospitalV Auto (RBC) [Entitic vol] Ordered By: Bakari Barboza on 66-61-8139RRI (RBC) [Entitic vol]86.7 oX22-868 [facility] CenterMagnesium [Mass/volume] in Serum or Plasma Ordered By: Ottoniel Bland on 06-79-8103Ptwuvdklu [Mass/Vol]1.7 mg/dLLow1.9-2.7 [facility] CenterMonocyte distribution width [Entitic volume] in Blood by AutomatedOrdered By: Bakari Barboza on 42-41-1550Wdwqxigs distribution width Auto (Bld) [Entitic vol]20.33 %High0.00-20.00[facility] CenterComment on above:For adults in ED, MDW > 20.0 may be associated with a higher risk of sepsis during the first 12 hrs of hospital admissionMonocytes Auto (Bld) [#/Vol]Ordered By: Bakari Barboza on 17-39-2290Zletbdonp (Bld) [#/Vol] 0.2 10*3/uL0.0-0.8[facility] CenterMonocytes/100 WBC Auto (Bld) Ordered By: Bakari Barboza on 37-35-5970Vgyoczifl/100 WBC (Bld)4.0 %.[facility] CenterMuscle specific receptor tyrosine kinase Ab [Units/volume] in Serum by ImmunoassayOrdered By: Ottoniel Bland on 07-21-2024 Muscle specific receptor tyrosine kinase Ab IA Qn (S)<1.0 U/mL.[facility] CenterComment on above:Reference Range: Negative: <1.0 Positive: 1.0 or higher A positive result, in the context of congruent clinical findings, confirms the diagnosis of autoimmune MuSK myasthenia gravis.COMMENTS: - Myasthenia gravis (MG) is caused by auto-antibodies against proteins of the neuromuscular junction. Most cases (about 90%) of generalized MG are anti- acetylcholine receptor (AChR) antibody-positive.(1)- Of generalized MG patients who lack anti-AChR antibodies (AChR-seronegative), about 40% are positive for Muscle- Specific Kinase (MuSK) antibody.(1,2) - Though a positive MuSK result is specific for the diagnosis of MuSK MG, a negative MuSK result does not rule out a MG diagnosis. - MuSK antibodylevels have been shown to correlate with disease severity.(3) Serial measurements may be useful to follow treatment.References:1. Mjih-Aknin S et al. J Autoimmunity 2014;52:90-100.2. Fred MG etal. PNAS 2013;110(51);85154-96163.3. Enrique E et al. Neurology 2006;67:505-507.This test was developed and its performance characteristicsdetermined by [employer]. It has not been cleared or approvedby the Food and Drug Administration.Performed at: [facility] [address] [id number] Director: Trae Olivarez MD, Phone: [phone] peptide B [Mass/Vol]Ordered By: Bakari Barboza on 07-21-2024 Natriuretic peptide B (Bld) [Mass/Vol]42.0 pg/mL5-100Prem[facility] Medical CenterNeutrophils Auto (Bld) [#/Vol]Ordered By: Bakari Barboza on 07-21-2024 Neutrophils (Bld) [#/Vol]3.3 10*3/uL1.8-7.7FTrinity Health System East Campus Neutrophils/100 WBC Auto (Bld)Ordered By: Bakari Barboza on 07-21-2024 Neutrophils/100 WBC (Bld)68.2 %.[facility] Medical CenterNitrite Test strip Ql (U)Ordered By: Bakari Barboza on 66-50-9477Eigrviu Ql (U)NegativeNegative [facility] CenterNo Panel InformationOrdered By: Ottoniel Bland on 02-10-3133Lxmsaqoagggtq Receptor Binding Ab<0.03 nmol/L0.00-0.24[facility] CenterComment on above:Negative: 0.00 - 0.24 Borderline: 0.25 - 0.40 Positive: >0.40Performed at: [facility] [id number] Director: Keith Quijano MD, Phone: [phone] Panel InformationOrdered By: Bakari Barboza on 91-65-1171Wpwrmgdtk GFR (CKD-EPI) 32.449 mL/MinPremier Health Atrium Medical CenterPharmacy Creatinine Clearance (Chem33.01[facility] Medical CenterNucleated erythrocytes [Presence] in Blood by Automated countOrdered By: Bakari Barboza on 42-76-3472Fcchiriwp RBC Auto Ql (Bld)0.0 /100{WBC}0-0.5FTrinity Health System East CampusPlatelet mean volume Auto (Bld) [Entitic vol]Ordered By: Bakari Barboza on 82-10-9953Eqmjtora mean volume (Bld) [Entitic vol]7.1 fL6.3-10.7FTrinity Health System East Campus Platelets Auto (Bld) [#/Vol]Ordered By: Bakari Barboza on 87-67-3140Ilkirunil (Bld) [#/Vol]141 10*3/tZYlz707-622AcvphaljcPremier Health Atrium Medical CenterPotassium [Moles/volume] in Serum or PlasmaOrdered By: Bakari Barboza on 89-42-5427Zzlbrasyt [Moles/Vol]4.5 mmol/L3.5-5.1FTrinity Health System East CampusProtein Test strip (U) [Mass/Vol]Ordered By: Bakari Barboza on 63-38-1646Efbqcdp (U) [Mass/Vol] NegativeNegativePremier Health Atrium Medical CenterProtein [Mass/volume] in Serum or PlasmaOrdered By: Bakari Barboza on 22-25-7404Tpgzvtf [Mass/Vol]6.6 g/dL6.4-8.9 [facility] CenterProthrombin time (PT)Ordered By: Bakari Barboza on 88-02-7792DU Coag (PPP) [Time]12.3 s9.0-12.9[facility] Comment on above:A hematocrit value greater than 55% may lead to inaccurate results in coagulation testing. Patientshaving hematocrit values >55% require a special collection tube for coagulation studies. Please contact the laboratory at [phone] for redraw instructions.RBC Auto (Bld) [#/Vol]Ordered By: Bakari Barboza on 03-71-7310KIU (Bld) [#/Vol]3.66 10*6/uL3.60-5.00[facility] Centererum acetylcholine receptor blocking antibody/total acetylcholine antibody ratioOrdered By: Ottoniel Bland on 73-23-7313Amirubuaxcyuy receptor blocking Ab/Acetylcholine Ab.total (S) [Molar fraction]19 %0-25[facility] CenterComment on above:This test was developed and its performance characteristicsdetermined by [employer]. It has not been cleared orapproved by the Food and Drug Administration. Negative: 0 - 25 Borderline: 26 - 30 Positive: >30Performed at: [address] [id number] Director: Keith Quijano MD, Phone: [phone] or plasma albumin/globulin mass ratioOrdered By: Bakari Barboza on 07-21-2024 Albumin/Globulin [Mass ratio]1.6 {ratio}[facility] Centererum or plasma anion gap determinationOrdered By: Bakari Barboza on 04-90-6971Hpbvr gap [Moles/Vol]13.2 mmol/L6.0-15.0[facility] Medical Centererum or plasma high density lipoprotein (HDL) cholesterol measurementOrdered By: Comfort Monteiro on 93-94-0784Tbnvrmkmpgr in HDL [Mass/Vol]40 mg/kJ53-65KcecqwvljPremier Health Atrium Medical CenterComment on above:HDL CHOL ATP-III CLASSIFICATION Cardiovascular RiskHDL > or equal to 60 mg/dL LOWHDL < 40 mg/dL HIGHSerum or plasma non-glucuronidated bilirubin measurement (mass/volume)Ordered By: Bakari Barboza on 72-62-2403Qongpsngt.indirect [Mass/Vol]0.3 mg/dLMercy Health St. Vincent Medical Centererum or plasma total cholesterol/high density lipoprotein (HDL) cholesterol mass ratOrdered By: Comfort Monteiro on 07-21-2024 Cholesterol.total/Cholesterol in HDL [Mass ratio]2.8 {ratio}<5.0[facility] Medical Centerodium [Moles/volume] in Serum or PlasmaOrdered By: Bakari Barboza on 56-67-2978Otrywl [Moles/Vol]138 mmol/S565-631DluydevetMercy Health St. Vincent Medical Centerpecific gravity of Urine by RefractometryOrdered By: Bakari Barboza on 96-14-7024Zqewllzr gravity Refractometry (U) [Rel density]1.0181.001-1.030 [facility] CenterComment on above:Rechecked by refractometer Triglyceride [Mass/volume] in Serum or PlasmaOrdered By: Comfort Monteiro on 90-95-1161Ygsbnshmpsna [Mass/Vol]132 mg/dL0-149[facility] Comment on above:TRIG ATP III CLASSIFICATIONTRIG less than 150 mg/dL NormalTRIG 150-199 mg/dL Borderline highTRIG 200-500 mg/dL High TRIG greater than 500 mg/dL Very highStandard traceable to the Center for Disease Conrtrol and Prevention (CDC) test method.Troponin I.cardiac [Mass/volume] in Serum or Plasma by Detection limit <= 0.01 ng/Ordered By: Bakari Barboza on 61-04-9638Rgzewghp I.cardiac DL <= 0.01 ng/mL [Mass/Vol]4.4 pg/mL0.0-15.0[facility] CenterUrea nitrogen [Mass/volume] in Serum or PlasmaOrdered By: Bakari Barboza on 69-20-6883Ugcs nitrogen [Mass/Vol]43 mg/dLHigh7-25Prem[facility] CenterUrine appearanceOrdered By: Bakari Barboza on 32-92-5673Jvobygtavp (U)Clear ClearPremier Health Atrium Medical CenterUrobilinogen Test strip (U) [Mass/Vol] Ordered By: Bakari Barboza on 54-90-6387Bkfnwpotlbvt (U) [Mass/Vol]Normal mg/dL NormalPremier Health Atrium Medical CenterVaricella zoster virus DNA [Presence] in Cerebral spinal fluid by DIPESH with probe deteOrdered By: Ottoniel Bland on 89-52-2647ERC DNA DIPESH+probe Ql (CSF)8 %0-45[facility] Comment on above:This test was developed and its performance characteristicsdetermined by [employer]. It has not been cleared orapproved by the Food and Drug Administration. Interpretive Information: Negative: 0 - 45% Po sitive: > 45%No single value for AChR-modulating antibody shouldbe used as a sole basis for diagnosis or responseto therapy.Performed at: [address] [id number] Director: Keith Quijano MD, Phone: [phone] Auto (Bld) [#/Vol]Ordered By: Bakari Barboza on 62-74-9714WTL (Bld) [#/Vol]4.8 10*3/uL3.8-11.6FTrinity Health System East Campus pH Test strip (U)Ordered By: Bakari Barboza on 65-91-0116wW (U)6.0 [pH]5.0-9.0 [facility] CenterAlanine aminotransferase [Enzymatic activity/volume] in Serum or PlasmaOrdered By: Vinay Matta on 04-10-9800JPC [Catalytic activity/Vol]18 U/L7-52[facility] Medical CenterAlbumin [Mass/volume] in Serum or Plasma by Bromocresol green (BCG) dye binding metho Ordered By: Vinay Matta on 52-71-9443Qwtbjta BCG dye [Mass/Vol]4.0 g/dL 3.5-5.7FTrinity Health System East CampusAlkaline phosphatase [Enzymatic activity/volume] in Serum or PlasmaOrdered By: Vinay Matta on 35-15-3453PVM [Catalytic activity/Vol]104 U/S85-550YdnwmnmwiPremier Health Atrium Medical CenterAspartate aminotransferase [Enzymatic activity/volume] in Serum or PlasmaOrdered By: Vinay Bunting on 62-92-5412XDK [Catalytic activity/Vol]21 U/Y56-81AuhffygprPremier Health Atrium Medical CenterBasophils Auto (Bld) [#/Vol]Ordered By: Vinay Bunting on 33-76-5187Fghjyhvqa (Bld) [#/Vol]0.0 10*3/uL0.0-0.2FTrinity Health System East CampusBasophils/100 WBC Auto (Bld)Ordered By: Vinay Bunting on 05-24-2024 Basophils/100 WBC (Bld)0.2 %.[facility] CenterBilirubin.total [Mass/volume] in Serum or PlasmaOrdered By: Vinay Bunting on 05-24-2024 Bilirubin [Mass/Vol]0.5 mg/dL0.3-1.0[facility] CenterCalcium [Mass/volume] in Serum or PlasmaOrdered By: Vinay Bunting on 29-16-1779Vdeocon [Mass/Vol]8.6 mg/dL8.6-10.3FTrinity Health System East CampusCarbon dioxide, total [Moles/volume] in Serum or PlasmaOrdered By: Vinay Bunting on 05-24-2024 CO2 [Moles/Vol]29.0 mmol/L21.0-31.0[facility] CenterChloride [Moles/volume] in Serum or PlasmaOrdered By: Vinay Bunting on 05-24-2024 Chloride [Moles/Vol]101 mmol/R98-554JnzfgwjhlPremier Health Atrium Medical CenterCholesterol [Mass/volume] in Serum or PlasmaOrdered By: Vinay Bunting on 05-24-2024 Cholesterol [Mass/Vol]107 mg/zOPkg051-084EddzjkcziPremier Health Atrium Medical Center Comment on above:Chol less than 200 mg/dl low riskChol 201-239 mg/dl borderline riskChol 240 mg/dl and greater high riskCholesterol in LDL Calc [Mass/Vol] Ordered By: Vinay Bunting on 03-21-7228Bqopjgneaur in LDL [Mass/Vol]46 mg/dL 0-100[facility] CenterComment on above:LDL ATP III CLASSIFICATIONLDL less than 100 mg/dL OptimalLDL 100-129 mg/dL Near or above ycdhwtuKKM814-767 mg/dL Borderline highLDL 160-189 mg/dL HighLDL greater than 189 mg/dL Very highCholesterol in VLDL Calc [Mass/Vol]Ordered By: Vinay Matta on 60-72-8955Xncvktueypx in VLDL [Mass/Vol]21 mg/dLPremier Health Atrium Medical CenterCreatinine [Mass/volume] in Serum or PlasmaOrdered By: Vinay Matta on 64-48-5983Grzfvhfsnv [Mass/Vol]1.26 mg/dLHigh0.60-1.20[facility] CenterEosinophils Auto (Bld) [#/Vol]Ordered By: Vinay Matta on 05-24-2024 Eosinophils (Bld) [#/Vol]0.2 10*3/uL0.0-0.45[facility] Eosinophils/100 WBC Auto (Bld)Ordered By: Vinay Matta on 05-24-2024 Eosinophils/100 WBC (Bld)2.6 %.[facility] CenterErythrocyte distribution width Auto (RBC) [Ratio]Ordered By: Vinay Matta on 05-24-2024 Erythrocyte distribution width (RBC) [Ratio]16.8 %High11.9-15.3FTrinity Health System East CampusGlobulin Calc (S) [Mass/Vol]Ordered By: Vinay Matta on 02-44-1656Fhosivmj (S) [Mass/Vol]2.2 g/dLPremier Health Atrium Medical Center Glucose [Mass/volume] in Serum or PlasmaOrdered By: Vinay Matta on 05-24-2024 Glucose [Mass/Vol]133 mg/dWAowq20-331JglprbvkiPremier Health Atrium Medical CenterComment on above:ADA recommended reference rangeRandom Glucose Reference Range is dependent on time and content of last meal. Glucose of more than 200 mg/dL in a nonstressed, ambulatory subject supports the diagnosisof Diabetes Mellitus. Glucose mean value [Mass/volume] in Blood Estimated from glycated hemoglobin Ordered By: Vinay Matta on 21-51-8862Fjtlwmn glucose Estimated from glycated hemoglobin (Bld) [Mass/Vol]151 mg/dLPremier Health Atrium Medical CenterHematocrit Auto (Bld) [Volume fraction]Ordered By: Vinay Bunting on 13-70-4292Sitkoyvuhx (Bld) [Volume fraction]32.1 %Low34.0-46.4FTrinity Health System East Campus Hemoglobin A1c percentageOrdered By: Vinay Bunting on 09-66-3395VfQ0u (Bld) [Mass fraction]6.9 %High4.3-5.6FTrinity Health System East CampusComment on above:Increased risk for diabetes: 5.7 - 6.4diabetes: >6.4glycemic control for adults with diabetes: <7.0Hemoglobin [Mass/volume] in BloodOrdered By: Vinay Bunting on 28-73-2564Cumopclaoz (Bld) [Mass/Vol]10.9 g/dLLow11.8-15.4FTrinity Health System East CampusLeukocytes [#/volume] corrected for nucleated erythrocytes in Blood by Automated counOrdered By: Vinay Bunting on 05-24-2024 WBC corrected for nucl RBC Auto (Bld) [#/Vol]5.9 10*3/uL3.8-11.6FTrinity Health System East CampusLymphocytes Auto (Bld) [#/Vol]Ordered By: Vinay Bunting on 18-91-4119Tnvvesdhjab (Bld) [#/Vol]1.1 10*3/uL1.00-4.8[facility] CenterLymphocytes/100 WBC Auto (Bld)Ordered By: Vinay Bunting on 39-55-0041Kyyvjbqbkzx/100 WBC (Bld)17.9 %.[facility] HospitalH Auto (RBC) [Entitic mass]Ordered By: Vinay Bunting on 30-63-0476XYL (RBC) [Entitic mass]29.9 pg24.7-34.3FTrinity Health System East CampusMCHC Auto (RBC) [Mass/Vol]Ordered By: Vinay Bunting on 97-12-3708GHWC (RBC) [Mass/Vol]34.0 g/dL 32.0-35.0[facility] CenterMCV Auto (RBC) [Entitic vol]Ordered By: Vinay Bunting on 61-14-5607ZOR (RBC) [Entitic vol]88.1 oM65-512ByrbkktmnPremier Health Atrium Medical CenterMagnesium [Mass/volume] in Serum or PlasmaOrdered By: Vinay Bunting on 44-64-1153Cashtvewy [Mass/Vol]1.0 mg/dLLow1.9-2.7FTrinity Health System East CampusMonocytes Auto (Bld) [#/Vol]Ordered By: Vinay Bunting on 03-07-9204Zgnuazpgr (Bld) [#/Vol]0.3 10*3/uL0.0-0.8[facility] CenterMonocytes/100 WBC Auto (Bld)Ordered By: Vinay Bunting on 05-24-2024 Monocytes/100 WBC (Bld)5.4 %.[facility] Medical CenterNeutrophils Auto (Bld) [#/Vol]Ordered By: Vinay Bunting on 52-40-8033Kvvpkdaakzz (Bld) [#/Vol] 4.4 10*3/uL1.8-7.7FTrinity Health System East CampusNeutrophils/100 WBC Auto (Bld)Ordered By: Vinay Bunting on 92-60-8094Ggnmlqmqfoe/100 WBC (Bld)73.9 %. [facility] CenterNo Panel InformationOrdered By: Vinay Bunting on 83-14-0866Stkgjmqnl GFR (CKD-EPI)44.522 mL/MinPremier Health Atrium Medical CenterPharmacy Creatinine Clearance (ChemN/AFTrinity Health System East Campus Nucleated erythrocytes [Presence] in Blood by Automated countOrdered By: Vinay Bunting on 25-77-4325Eozyygpsz RBC Auto Ql (Bld)0.1 /100{WBC}0-0.5FTrinity Health System East CampusPlatelet mean volume Auto (Bld) [Entitic vol]Ordered By: Vinay Bunting on 86-67-5478Qleayjgq mean volume (Bld) [Entitic vol]7.3 fL 6.3-10.7FTrinity Health System East CampusPlatelets Auto (Bld) [#/Vol]Ordered By: Vinay Bunting on 36-42-4700Ecdpatxxf (Bld) [#/Vol]156 10*3/bD791-203LsumqligyPremier Health Atrium Medical CenterPotassium [Moles/volume] in Serum or PlasmaOrdered By: Vinay Bunting on 06-80-8021Vyeojyzcy [Moles/Vol]4.7 mmol/L3.5-5.1FTrinity Health System East CampusProtein [Mass/volume] in Serum or PlasmaOrdered By: Vinay Bunting on 53-10-8875Cakovsa [Mass/Vol]6.2 g/dLLow6.4-8.9[facility] Medical CenterRBC Auto (Bld) [#/Vol]Ordered By: Vinay Bunting on 83-59-8817ZTK (Bld) [#/Vol]3.65 10*6/uL3.60-5.00[facility] Centererum or plasma albumin/globulin mass ratioOrdered By: Vinay Bunting on 68-36-5891Ubxcgnj/Globulin [Mass ratio]1.8 {ratio}[facility] Centererum or plasma anion gap determinationOrdered By: Vinay Bunting on 01-59-5280Hvtqj gap [Moles/Vol]14.7 mmol/L6.0-15.0[facility] Centererum or plasma high density lipoprotein (HDL) cholesterol measurement Ordered By: Vinay Bunting on 28-75-9859Kmokftdjwle in HDL [Mass/Vol]40 mg/dL 23-92Prem[facility] CenterComment on above:HDL CHOL ATP-III CLASSIFICATION Cardiovascular RiskHDL > or equal to 60 mg/dL LOWHDL < 40 mg/dL HIGHSerum or plasma total cholesterol/high density lipoprotein (HDL) cholesterol mass ratOrdered By: Vinay Bunting on 78-80-9864Vrmcsfugwjo.total/Cholesterol in HDL [Mass ratio]2.7 {ratio}<5.0[facility] Medical Centerodium [Moles/volume] in Serum or PlasmaOrdered By: Vinay Bunting on 26-92-9091Dsrfwy [Moles/Vol]140 mmol/A285-564OuavoyiftPremier Health Atrium Medical CenterTriglyceride [Mass/volume] in Serum or PlasmaOrdered By: Vinay Bunting on 05-24-2024 Triglyceride [Mass/Vol]106 mg/dL0-149Prem[facility] CenterComment on above:TRIG ATP III CLASSIFICATIONTRIG less than 150 mg/dL NormalTRIG 150-199 mg/dL Borderline highTRIG 200-500 mg/dL High TRIG greater than 500 mg/dL Very highStandard traceable to the Center for Disease Conrtrol and Prevention (CDC) test method.Urate [Mass/volume] in Serum or PlasmaOrdered By: Vinay Bunting on 84-34-9260Yqjlf [Mass/Vol]3.9 mg/dL2.3-6.6FTrinity Health System East CampusUrea nitrogen [Mass/volume] in Serum or PlasmaOrdered By: Vinay Bunting on 72-46-1472Btfo nitrogen [Mass/Vol]26 mg/dLHigh7-25Prem[facility] Medical CenterWBC Auto (Bld) [#/Vol]Ordered By: Vinay Bunting on 45-24-4953AOO (Bld) [#/Vol]5.9 10*3/uL3.8-11.6FTrinity Health System East CampusConsultation Noteon 28-64-8435Kkhwbinixyzq [id number]#1.00TIFCleveland Clinic Mercy HospitalRetail - Clinical Noteon 35-51-6169Gxjzjl - Clinical [id number]#1.00[facility]Ret[facility] - Clinical Note [id number]#1.00[facility] HospitalCHEMISTRYOrdered By: SYSTEM SYSTEM on 06-26-4737Dldbixf [Mass/Vol]4.2 g/dL Normal3.3 - 5.0 gm/dLRemisol ChemAlbumin/Globulin [Mass ratio]1.8 {ratio}Normal 1.1 - 2.2Remisol ChemALP [Catalytic activity/Vol]112 [iU]/dHigh21 - 98 Int._Unit/LRemisol ChemALT No additional P-5'-P [Catalytic activity/Vol]24 [iU]/dNormal6 - 46 Int._Unit/LRemisol ChemAnion gap [Moles/Vol]18 mmol/LHigh6 - 16 mEq/LRemisol ChemAST [Catalytic activity/Vol]31 [iU]/dNormal5 - 43 Int._Unit/LRemisol ChemBilirubin [Mass/Vol]0.5 mg/dLNormal0.0 - 1.1 mg/dLRemisol ChemCalcium [Mass/Vol]8.7 mg/dLLow8.9 - 11.1 mg/dLRemisol ChemChloride [Moles/Vol]99 mmol/CUhd758 - 111 mmol/LRemisol ChemCO2 [Moles/Vol]25 mmol/L Wlhhmp57 - 31 mmol/LRemisol ChemCreatinine [Mass/Vol]1.7 mg/dLHigh0.5 - 1.3 mg/dLRemisol AyachOHZ42 mL/min/1.73 m2Low>=59mL/min/1.73 i6Dvgqmsj ChemFerritin [Mass/Vol]41 ng/wERsrjlw89 - 307 ng/mLRemisol ChemGlobulin (S) [Mass/Vol]2.4 g/dLNormal1.4 - 4.0 gm/dLRemisol ChemGlucose [Mass/Vol]188 mg/rHRavbde65 - 199 mg/dLRemisol ChemIron [Mass/Vol]70 ug/hOWxtupk91 - 153 mcg/dLRemisol ChemIron binding capacity [Mass/Vol]433 ug/sTXjmm870 - 400 mcg/dLRemisol ChemMagnesium [Mass/Vol]1.3 mg/dLNormal1.3 - 2.4 mg/dLRemisol ChemPotassium [Moles/Vol]3.8 mmol/LNormal3.5 - 5.3 mmol/LRemisol ChemProtein [Mass/Vol]6.6 g/dLNormal6.0 - 7.8 gm/dLRemisol ChemSodium [Moles/Vol]138 mmol/DPhofht522 - 145 mmol/LRemisol ChemTransferrin [Mass/Vol]309 mg/fKOdmtcc535 - 370 mg/dLRemisol ChemUrea nitrogen [Mass/Vol]36 mg/dLHigh5 - 21 mg/dLRemisol ChemUrea nitrogen/Creatinine [Mass ratio]21 mg/vrLtcb94 - 20Remisol ChemCOAGULATIONOrdered By: Karlie Gomez on 57-06-7575YGU Coag (PPP) [Relative time]1.10 {INR}Invalid Interpretation CodePA[facility]USKA [facility] [place] Auto CoagComment on above:Interpretive Data: INR results are specifically intended to assess patients stabilized on long-term Anticoagulation therapy suggested INR s Less Intensive Anticoagulation 2.0 3.0 Conventional Range 3.0 4.5PT Coag (PPP) [Time]12.3 sNormal9.4 - 12.5 second(s) [facility] [place] Auto CoagComment on above:Interpretive Data: 15 days - 4 weeks 1 - [...] the same coagulation reagent and instrumentation as [facility] [place]. Currently there are no coagulation studies available worldwide for children to 14 days, andno normal ranges.HEMATOLOGYOrdered By: SYSTEM SYSTEM on 28-01-3738Iuniiltagth distribution width (RBC) [Ratio]17.1 %High10.9 - 14.2 %Remisol HemeHematocrit (Bld) [Volume fraction]31.2 %Low34.0 - 46.0 %Remisol HemeHemoglobin (Bld) [Mass/Vol]10.4 g/dLLow12.0 - 16.0 gm/dLRemisol HemeMCH (RBC) [Entitic mass]28.7 lmQkpvib58.0 - 34.0 pgRemisol HemeMCHC (RBC) [Mass/Vol]33.5 g/pTIzmfri84.4 - 36.0 gm/dLRemisol HemeMCV (RBC) [Entitic vol]85.7 cDWkzvoq52.0 - 100.0 fLRemisol HemePlatelet mean volume (Bld) [Entitic vol]7.5 fLNormal6.4 - 10.8 fLRemisol HemePlatelets (Bld) [#/Vol]152.0 E9/TGehgso287.0 - 500.0 E9/LRemisol HemeRBC (Bld) [#/Vol]3.6 E12/LLow4.3 - 5.9 E12/LRemisol HemeWBC corrected for nucl RBC Auto (Bld) [#/Vol]5.3 E9/LNormal4.0 - 11.0 E9/LRemisol HemeAlanine aminotransferase [Enzymatic activity/volume] in Serum or PlasmaOrdered By: Vinay Bunting on 16-27-6720CNR [Catalytic activity/Vol]24 U/L7-52Prem[facility] Medical CenterAlbumin [Mass/volume] in Serum or Plasma by Bromocresol green (BCG) dye binding methoOrdered By: Vinay Bunting on 58-85-9280Yudlfbd BCG dye [Mass/Vol]4.2 g/dL3.5-5.7FTrinity Health System East CampusAlkaline phosphatase [Enzymatic activity/volume] in Serum or PlasmaOrdered By: Vinay Bunting on 57-17-5133KYS [Catalytic activity/Vol]105 U/H26-949BetkwxlblPremier Health Atrium Medical CenterAspartate aminotransferase [Enzymatic activity/volume] in Serum or PlasmaOrdered By: Vinay Bunting on 27-96-0998ZIO [Catalytic activity/Vol]24 U/L 13-39Prem[facility] Medical CenterBasophils Auto (Bld) [#/Vol]Ordered By: Vinay Bunting on 83-59-2373Pjarnljsr (Bld) [#/Vol]0.0 10*3/uL0.0-0.2FTrinity Health System East CampusBasophils/100 WBC Auto (Bld)Ordered By: Vinay Bunting on 63-64-0868Nzlwdtdmp/100 WBC (Bld)0.5 %.[facility] Bilirubin.total [Mass/volume] in Serum or PlasmaOrdered By: Vinay Bunting on 06-83-2108Zzmsacavx [Mass/Vol]0.5 mg/dL0.3-1.0[facility] Calcium [Mass/volume] in Serum or PlasmaOrdered By: Vinay Bunting on 09-05-2023 Calcium [Mass/Vol]9.1 mg/dL8.6-10.3FTrinity Health System East CampusCarbon dioxide, total [Moles/volume] in Serum or PlasmaOrdered By: Vinay Bunting on 62-97-6658XS5 [Moles/Vol]29.2 mmol/L21.0-31.0[facility] Chloride [Moles/volume] in Serum or PlasmaOrdered By: Vinay Bunting on 25-14-6579Ckidzils [Moles/Vol]103 mmol/T19-659AjpimkjtzPremier Health Atrium Medical Center Cholesterol [Mass/volume] in Serum or PlasmaOrdered By: Vinay Bunting on 27-98-1138Crlynestidl [Mass/Vol]116 mg/oF072-530OdhiopmlpPremier Health Atrium Medical CenterComment on above:Chol less than 200 mg/dl low riskChol 201-239 mg/dl borderline riskChol 240 mg/dl and greater high riskCholesterol in LDL Calc [Mass/Vol]Ordered By: Vinay Bunting on 39-93-7439Icqdfrissme in LDL [Mass/Vol] 55 mg/dL0-100Prem[facility] Atrium Medical CenterComment on above:LDL ATP III CLASSIFICATIONLDL less than 100 mg/dL OptimalLDL 100-129 mg/dL Near or above nxnkdkrACN014-648 mg/dL Borderline highLDL 160-189 mg/dL HighLDL greater than 189 mg/dL Very highCholesterol in VLDL Calc [Mass/Vol]Ordered By: Vinay Bunting on 02-30-7418Hbtfooofcsy in VLDL [Mass/Vol]18 mg/dLPremier Health Atrium Medical CenterCreatinine [Mass/volume] in Serum or PlasmaOrdered By: Vinay Bunting on 58-84-0233Gsaayorwun [Mass/Vol]1.67 mg/dL0.60-1.20[facility] Medical CenterEosinophils Auto (Bld) [#/Vol]Ordered By: Vinay Bunting on 09-05-2023 Eosinophils (Bld) [#/Vol]0.1 10*3/uL0.0-0.45[facility] Eosinophils/100 WBC Auto (Bld)Ordered By: Vinay Bunting on 09-05-2023 Eosinophils/100 WBC (Bld)2.7 %.[facility] Medical CenterErythrocyte distribution width Auto (RBC) [Ratio]Ordered By: Vinay Matta on 09-05-2023 Erythrocyte distribution width (RBC) [Ratio]17.2 %11.9-15.3FTrinity Health System East CampusGlobulin Calc (S) [Mass/Vol]Ordered By: Vinay Matta on 31-40-5559Domtghpj (S) [Mass/Vol]2.2 g/dLPremier Health Atrium Medical Center Glucose [Mass/volume] in Serum or PlasmaOrdered By: Vinay Matta on 09-05-2023 Glucose [Mass/Vol]172 mg/pF37-765UmwfszovyPremier Health Atrium Medical CenterComment on above:ADA recommended reference rangeRandom Glucose Reference Range is dependent on time and content of last meal. Glucose of more than 200 mg/dL in a nonstressed, ambulatory subject supports the diagnosisof Diabetes Mellitus. Glucose mean value [Mass/volume] in Blood Estimated from glycated hemoglobin Ordered By: Vinay Matta on 80-62-3225Szwmaog glucose Estimated from glycated hemoglobin (Bld) [Mass/Vol]192 mg/dLPremier Health Atrium Medical CenterHematocrit Auto (Bld) [Volume fraction]Ordered By: Vinay Matta on 38-20-4577Htmyhwofnp (Bld) [Volume fraction]31.6 %34.0-46.4FTrinity Health System East Campus Hemoglobin A1c percentageOrdered By: Vinay Matta on 22-14-3422WyF6e (Bld) [Mass fraction]8.3 %4.3-5.6FTrinity Health System East CampusComment on above: Increased risk for diabetes: 5.7 - 6.4diabetes: >6.4glycemic control for adults with diabetes: <7.0Hemoglobin [Mass/volume] in BloodOrdered By: Vinay Matta on 77-56-5743Nihsdmmqkk (Bld) [Mass/Vol]11.0 g/dL11.8-15.4FTrinity Health System East CampusLeukocytes [#/volume] corrected for nucleated erythrocytes in Blood by Automated counOrdered By: Vinay Matta on 09-05-2023 WBC corrected for nucl RBC Auto (Bld) [#/Vol]5.3 10*3/uL3.8-11.6FTrinity Health System East CampusLymphocytes Auto (Bld) [#/Vol]Ordered By: Vinay Bunting on 94-52-6608Fuwggnrwleg (Bld) [#/Vol]1.5 10*3/uL1.00-4.8Prem[facility] Medical CenterLymphocytes/100 WBC Auto (Bld)Ordered By: Vinay Bunting on 72-08-7489Fgrqlpmrsit/100 WBC (Bld)28.2 %.[facility] HospitalH Auto (RBC) [Entitic mass]Ordered By: Vinay Bunting on 69-25-5074YSU (RBC) [Entitic mass]29.1 pg24.7-34.3FTrinity Health SystemHC Auto (RBC) [Mass/Vol]Ordered By: Vinay Bunting on 18-32-8892MGYO (RBC) [Mass/Vol]34.9 g/dL 32.0-35.0[facility] Medical CenterMCV Auto (RBC) [Entitic vol]Ordered By: Vinay Bunting on 84-44-2774CCC (RBC) [Entitic vol]83.3 pK42-291IxylijyefPremier Health Atrium Medical CenterMonocytes Auto (Bld) [#/Vol]Ordered By: Vinay Bunting on 87-43-0626Myggjgryd (Bld) [#/Vol]0.3 10*3/uL0.0-0.8[facility] Medical CenterMonocytes/100 WBC Auto (Bld)Ordered By: Vinay Bunting on 09-05-2023 Monocytes/100 WBC (Bld)5.0 %.[facility] Medical CenterNeutrophils Auto (Bld) [#/Vol]Ordered By: Vinay Bunting on 32-53-0528Sxpbhspnyhy (Bld) [#/Vol] 3.4 10*3/uL1.8-7.7FTrinity Health System East CampusNeutrophils/100 WBC Auto (Bld)Ordered By: Vinay Bunting on 71-16-7751Pqkyfxhrqov/100 WBC (Bld)63.6 %. [facility] CenterNo Panel InformationOrdered By: Vinay Bunting on 38-53-4755Xhrrthfxw GFR (CKD-EPI)31.949 mL/MinPremier Health Atrium Medical CenterPharmacy Creatinine Clearance (ChemN/AFTrinity Health System East Campus Nucleated erythrocytes [Presence] in Blood by Automated countOrdered By: Vinay Bunting on 21-47-4944Qsvetmexa RBC Auto Ql (Bld)0.0 /100{WBC}0-0.5FTrinity Health System East CampusPlatelet mean volume Auto (Bld) [Entitic vol]Ordered By: Vinay Bunting on 40-71-3805Litsjrgl mean volume (Bld) [Entitic vol]7.3 fL 6.3-10.7FTrinity Health System East CampusPlatelets Auto (Bld) [#/Vol]Ordered By: Vinay Bunting on 20-76-1457Madckojmp (Bld) [#/Vol]150 10*3/xP404-713GdipdixziPremier Health Atrium Medical CenterPotassium [Moles/volume] in Serum or PlasmaOrdered By: Vinay Bunting on 40-62-6333Zggxqujao [Moles/Vol]4.0 mmol/L3.5-5.1FTrinity Health System East CampusProtein [Mass/volume] in Serum or PlasmaOrdered By: Vinay Bunting on 89-04-8839Swpyjpj [Mass/Vol]6.4 g/dL6.4-8.9Prem[facility] Medical CenterRBC Auto (Bld) [#/Vol]Ordered By: Vinay Bunting on 46-29-3635EDB (Bld) [#/Vol]3.79 10*6/uL3.60-5.00[facility] Medical Centererum or plasma albumin/globulin mass ratioOrdered By: Vinay Bunting on 09-05-2023 Albumin/Globulin [Mass ratio]1.9 {ratio}[facility] Medical Centererum or plasma anion gap determinationOrdered By: Vinay Bunting on 41-45-7030Qbkre gap [Moles/Vol]13.8 mmol/L6.0-15.0[facility] Medical Centererum or plasma high density lipoprotein (HDL) cholesterol measurementOrdered By: Vinay Bunting on 12-56-2688Hrbghmjxpyj in HDL [Mass/Vol]42 mg/kY20-69CbzzlnnkrPremier Health Atrium Medical CenterComment on above:HDL CHOL ATP-III CLASSIFICATION Cardiovascular RiskHDL > or equal to 60 mg/dL LOWHDL < 40 mg/dL HIGHSerum or plasma total cholesterol/high density lipoprotein (HDL) cholesterol mass rat Ordered By: Vinay Matta on 74-89-1320Rtqqxkxwegr.total/Cholesterol in HDL [Mass ratio]2.8 {ratio}<5.0[facility] Medical Centerodium [Moles/volume] in Serum or PlasmaOrdered By: Vinay Bunting on 54-00-9611Tqptbr [Moles/Vol]142 mmol/P070-166RzpwfufapPremier Health Atrium Medical CenterTriglyceride [Mass/volume] in Serum or PlasmaOrdered By: [facility] Bunting on 09-05-2023 Triglyceride [Mass/Vol]93 mg/dL0-149Prem[facility]rium Medical CenterComment on above:TRIG ATP III CLASSIFICATIONTRIG less than 150 mg/dL NormalTRIG 150-199 mg/dL Borderline highTRIG 200-500 mg/dL High TRIG greater than 500 mg/dL Very highStandard traceable to the Center for Disease Conrtrol and Prevention (CDC) test method.Urate [Mass/volume] in Serum or PlasmaOrdered By: Vinay Bunnortheast health system on 29-99-9245Vyact [Mass/Vol]6.0 mg/dL2.3-6.6FTrinity Health System East CampusUrea nitrogen [Mass/volume] in Serum or PlasmaOrdered By: Vinay Bunting on 76-73-3154Phbw nitrogen [Mass/Vol]38 mg/dL7-25[facility] WBC Auto (Bld) [#/Vol]Ordered By: Vinay Escaleranortheast health system on 29-71-8765CQK (Bld) [#/Vol] 5.3 10*3/uL3.8-11.6FTrinity Health System East CampusCBC AUTO DIFFon 03-27-2023 BASO #0.0 103/ulNormal0.0-0.1The [facility]c HealthComment on above:Performed By: #### CBC #### [facility] [address] [address] [address] Anamika Beansophils/100 WBC (Bld)0.3 %Normal0.2-2.0The [facility] Comment on above:Performed By: #### CBC #### [facility] [address] [address] [address] Anamika Barth #0.1 103/ulNormal0.0-0.7The [facility]c HealthComment on above: Performed By: #### CBC #### [facility] [address] [address] [address] Anamika Holdenosinophils/100 WBC (Bld)1.7 %Normal0.9-7.0The [facility] Comment on above:Performed By: #### CBC #### [facility] [address] [place] [address] Dr. Anamika Holdenrythrocyte distribution width (RBC) [Ratio]15.4 %Critically high 11.0-15.0The [facility] Hospitalment on above:Performed By: #### CBC #### [facility] [address] [place] [address] Dr. Anamika VargheseHematocrit (Bld) [Volume fraction]32.2 %Critically low36.0-48.0 The [facility]c HealthComment on above:Performed By: #### CBC #### [facility] [address] [place] [address] Dr. Anamika VargheseHemoglobin (Bld) [Mass/Vol]10.9 g/dLCritically low12.0-16.0The [facility]c HealthComment on above:Performed By: #### CBC #### [facility] [address] [place] [address] Dr. Anamika Keane #0.02 10e3/ulNormal0.00-0.03The [facility]c HealthComment on above:Performed By: #### CBC #### [facility] [address] [place] [address] Dr. Anamika Keane %0.3 %Normal0.0-0.5The [facility]c HealthComment on above: Performed By: #### CBC #### [facility] [address] [place] [address] Dr. Anamika Portillo #1.5 103/ulNormal1.2-3.8The [facility]c HealthComment on above:Performed By: #### CBC #### [facility] [address] [place] [address] Dr. Anamika Cohnmphocytes/100 WBC (Bld)25.0 %Jiynao57.5-60.0The [facility]c HealthComment on above:Performed By: #### CBC #### [facility] [address] [place] [address] Dr. Anamika MabryUAL DIFF REQNONormalThe Uc HealthComment on above: Performed By: #### CBC #### [facility] [address] [place] [address] Dr. Anamika Jean (RBC) [Entitic mass]29.0 yeCxpeog64.7-34.0The [facility]c HealthComment on above:Performed By: #### CBC #### [facility] [address] [place] [address] Dr. Anamika Jean (RBC) [Mass/Vol]33.9 g/kRYgktab95.9-35.2The [facility]c HealthComment on above:Performed By: #### CBC #### [facility] [address] [place] [address] Dr. Anamika Jean (RBC) [Entitic vol]85.6 bGVijyva95.0-99.0The [facility]c HealthComment on above:Performed By: #### CBC #### [facility] [address] [place] [address] Dr. Anamika Gerber #0.3 103/ulNormal0.3-0.8The [facility]c HealthComment on above:Performed By: #### CBC #### [facility] [address] [place] [address] Dr. Anamika Beaulieuocytes/100 WBC (Bld)4.5 %Normal1.7-12.0The [facility] on above:Performed By: #### CBC #### [facility] [address] [place] [address] Dr. Anamika Rowe #4.1 103/ulNormal1.4-6.5The [facility]c HealthComment on above:Performed By: #### CBC #### [facility] [address] [address] [address] Anamika Bautistautrophils/100 WBC (Bld)68.2 %Sdsdhi96.0-75.0The [facility]c HealthComment on above:Performed By: #### CBC #### [facility] [address] [place] [address] Dr. Anamika VarghesePlatelet mean volume (Bld) [Entitic vol]8.9 fLCritically low 9.5-13.5The [facility]c HealthComment on above:Performed By: #### CBC #### [facility] [address] [place] [address] Dr. Anamika VarghesePLT172 103/ggMynrub534-502Cdx [facility]c HealthComment on above: Performed By: #### CBC #### [facility] [address] [place] [address] Dr. Anamika VargheseRBC3.76 106/ulCritically low4.20-5.40The [facility] HealthComment on above:Performed By: #### CBC #### [facility] [address] [place] [address] Dr. Anamika VargheseWBC6.0 103/ulNormal4.0-11.0The [facility]c HealthComment on above: Performed By: #### CBC #### [facility] [address] [place] [address] Dr. Anamika VarghesePROReinaldo 14(COMP METB)on 23-79-0534Reqzmai [Mass/Vol]3.5 g/dLNormal 3.4-5.0The [facility]c HealthComment on above:Performed By: #### FETIBC, FERR, B12FOL #### [facility] [address] [place] [address] Dr. Anamika aVrgheseAlbumin/Globulin [Mass ratio]1.0 {ratio}NormalThe [facility] on above:Performed By: #### FETIBC, FERR, B12FOL #### [facility] [address] [place] [address] Dr. Anamika Simon [Catalytic activity/Vol]109 U/TEslgmz31-993Pzy [facility] HealthComment on above:Performed By: #### FETIBC, FERR, B12FOL #### [facility] [address] [place] [address] Dr. Anamika Cook [Catalytic activity/Vol]34 U/SCkqgki94-48Mek [facility] HealthComment on above:Performed By: #### FETIBC, FERR, B12FOL #### [facility] [address] [place] [address] Dr. Anamika Winn gap [Moles/Vol]13.8 mmol/LNormalThe [facility] Comment on above:Performed By: #### FETIBC, FERR, B12FOL #### [facility] [address] [place] [address] Dr. Anamika Barber [Catalytic activity/Vol]20 U/STxhyso70-00Wkj [facility] HealthComment on above:Performed By: #### FETIBC, FERR, B12FOL #### [facility] [address] [place] [address] Dr. Anamika VargheseBilirubin [Mass/Vol]0.4 mg/dLNormal0.2-1.0The [facility] Comment on above:Performed By: #### FETIBC, FERR, B12FOL #### [facility] [address] [place] [address] Dr. Anamika VargheseCalcium [Mass/Vol]8.7 mg/dLNormal8.5-10.1[facility] Comment on above:Performed By: #### FETIBC, FERR, B12FOL #### [facility] [address] [place] [address] Dr. Anamika VargheseChloride [Moles/Vol]107 mmol/JCavvlb54-544Bsa [facility] Comment on above:Performed By: #### FETIBC, FERR, B12FOL #### [facility] [address] [place] [address] Dr. Anamika VargheseCO2 [Moles/Vol]28.2 mmol/YEwulbo44.0-32.0The [facility] Comment on above:Performed By: #### FETIBC, FERR, B12FOL #### [facility] [address] [place] [address] Dr. Anamika VargheseCreatinine [Mass/Vol]1.27 mg/dLCritically high0.55-1.02The [facility] HealthComment on above:Performed By: #### FETIBC, FERR, B12FOL #### [facility] [address] [place] [address] Dr. Willson ChangEGFR-AF VXMRRKQW62 mL/min/1.67t2Fibvqmyjdi low>=60The [facility]c HealthComment on above:Performed By: #### FETIBC, FERR, B12FOL #### [facility] [address] [place] [address] Dr. Willson ChangEGFR-NON AF DSKKOCOW14 mL/min/1.65u6Ipogcrsccp low>=60The [facility]c HealthComment on above:Performed By: #### FETIBC, FERR, B12FOL #### [facility] [address] [place] [address] Dr. Anamika VargheseGlobulin (S) [Mass/Vol]3.6 g/dLNormalThe [facility]c HealthComment on above:Performed By: #### FETIBC, FERR, B12FOL #### [facility] [address] [place] [address] Dr. Anamika VargheseGlucose [Mass/Vol]116 mg/dLCritically oepr13-516Fmx [facility] Hospitalment on above:Performed By: #### FETIBC, FERR, B12FOL #### [facility] [address] [place] [address] Dr. Anamika VarghesePotassium [Moles/Vol]4.0 mmol/LNormal3.5-5.1The [facility] Comment on above:Performed By: #### FETIBC, FERR, B12FOL #### [facility] [address] [place] [address] Dr. Anamika VargheseProtein [Mass/Vol]7.1 g/dLNormal6.4-8.2The [facility] Comment on above:Performed By: #### FETIBC, FERR, B12FOL #### [facility] [address] [address] [address] Anamika VargheseSodium [Moles/Vol]145 mmol/REljout513-486Ivv [facility] Comment on above:Performed By: #### FETIBC, FERR, B12FOL #### [facility] [address] [address] [address] Anamika Marrero nitrogen [Mass/Vol]24.0 mg/dLCritically high7.0-18.0[facility] HospitalComment on above:Performed By: #### FETIBC, FERR, B12FOL #### [facility] [address] [address] [address] Anamika Marrero nitrogen/Creatinine [Mass ratio]18.9 mg/mgNormalThe [facility]c HealthComment on above:Performed By: #### FETIBC, FERR, B12FOL #### [facility] [address] [place] [address] Dr. Anamika VargheseBasophils Auto (Bld) [#/Vol]Ordered By: Kimberly Arteaga on 84-19-7194Lpgfhkijb (Bld) [#/Vol]0.0 10*3/uL0.0-0.2FTrinity Health System East CampusBasophils/100 WBC Auto (Bld)Ordered By: Kimberly Arteaga on 03-13-2023 Basophils/100 WBC (Bld)0.4 %.[facility] Medical CenterCalcium [Mass/volume] in Serum or PlasmaOrdered By: Kimberly Arteaga on 44-32-0321Jupjgrr [Mass/Vol]8.5 mg/dL8.6-10.3FTrinity Health System East CampusCarbon dioxide, total [Moles/volume] in Serum or PlasmaOrdered By: Kimberly Arteaga on 03-13-2023 CO2 [Moles/Vol]29.6 mmol/L21.0-31.0[facility] Medical CenterChloride [Moles/volume] in Serum or PlasmaOrdered By: Kimberly Arteaga on 85-56-0928Znpddqad [Moles/Vol]103 mmol/R41-468CyapidnmgPremier Health Atrium Medical CenterCreatinine [Mass/volume] in Serum or PlasmaOrdered By: Kimberly Arteaga on 03-13-2023 Creatinine [Mass/Vol]1.35 mg/dL0.60-1.20[facility] Eosinophils Auto (Bld) [#/Vol]Ordered By: Kimberly Arteaga on 30-31-5423Rvfumyimjrc (Bld) [#/Vol]0.1 10*3/uL0.0-0.45[facility] Eosinophils/100 WBC Auto (Bld)Ordered By: Kimberly Arteaga on 03-13-2023 Eosinophils/100 WBC (Bld)1.7 %.[facility] Medical CenterErythrocyte distribution width Auto (RBC) [Ratio]Ordered By: Kimberly Arteaga on 03-13-2023 Erythrocyte distribution width (RBC) [Ratio]16.8 %11.9-15.3FTrinity Health System East CampusGlucose Glucometer (BldC) [Mass/Vol]Ordered By: Kimberly Arteaga on 67-30-9459Uvzwfid [Mass/Vol]162 mg/dLPremier Health Atrium Medical CenterComment on above:Random Glucose Reference Range is dependent on time and content of last meal. Glucose of more than 200 mg/dL in a nonstressed, ambulatory subject supports the diagnosis of Diabetes Mellitus.Glucose [Mass/volume] in Serum or PlasmaOrdered By: Kimberly Arteaga on 95-41-8091Nkgczfb [Mass/Vol]130 mg/pV67-432 [facility] CenterComment on above:ADA recommended reference rangeRandom Glucose Reference Range is dependent on time and content of last meal. Glucose of more than 200 mg/dL in a nonstressed, ambulatory subject supports the diagnosisof Diabetes Mellitus.Hematocrit Auto (Bld) [Volume fraction]Ordered By: Kimberly Arteaga on 47-94-4913Relqlasfdx (Bld) [Volume fraction]32.5 %34.0-46.4FTrinity Health System East CampusHemoglobin [Mass/volume] in BloodOrdered By: Kimberly Arteaga on 38-94-7653Cyrxhfihtt (Bld) [Mass/Vol]10.9 g/dL11.8-15.4FTrinity Health System East CampusLeukocytes [#/volume] corrected for nucleated erythrocytes in Blood by Automated coun Ordered By: Kimberly Arteaga on 20-78-3411RXE corrected for nucl RBC Auto (Bld) [#/Vol]5.0 10*3/uL3.8-11.6FTrinity Health System East CampusLymphocytes Auto (Bld) [#/Vol]Ordered By: Kimberly Arteaga on 53-51-8927Raqhexuprea (Bld) [#/Vol]1.4 10*3/uL1.00-4.8[facility] Medical CenterLymphocytes/100 WBC Auto (Bld) Ordered By: Kimberly Arteaga on 29-33-7749Cuqtjazcfpe/100 WBC (Bld)28.5 %.[facility] HospitalH Auto (RBC) [Entitic mass]Ordered By: Kimberly Arteaga on 50-90-1134PQI (RBC) [Entitic mass]28.6 pg24.7-34.3FTrinity Health System East CampusMCHC Auto (RBC) [Mass/Vol]Ordered By: Kimberly Arteaga on 13-74-7865BLCY (RBC) [Mass/Vol]33.5 g/dL32.0-35.0[facility] Medical CenterMCV Auto (RBC) [Entitic vol]Ordered By: Kimberly Arteaga on 23-37-6196YYR (RBC) [Entitic vol]85.3 yE74-728LwtxglcddPremier Health Atrium Medical CenterMonocytes Auto (Bld) [#/Vol] Ordered By: Kimberly Arteaga on 00-85-0569Lfjjxluxd (Bld) [#/Vol]0.3 10*3/uL0.0-0.8 [facility] CenterMonocytes/100 WBC Auto (Bld)Ordered By: Kimberly Arteaga on 43-96-9283Ouszgstsw/100 WBC (Bld)6.9 %.[facility] CenterNeutrophils Auto (Bld) [#/Vol]Ordered By: Kimberly Arteaga on 03-13-2023 Neutrophils (Bld) [#/Vol]3.1 10*3/uL1.8-7.7FTrinity Health System East Campus Neutrophils/100 WBC Auto (Bld)Ordered By: Kimberly Arteaga on 03-13-2023 Neutrophils/100 WBC (Bld)62.5 %.[facility] CenterNo Panel InformationOrdered By: Kimberly Arteaga on 12-47-8700Hokclweqk GFR (CKD-EPI)41.239 mL/MinPremier Health Atrium Medical CenterPharmacy Creatinine Clearance (Chem39.70 [facility] Medical CenterNucleated erythrocytes [Presence] in Blood by Automated countOrdered By: Kimberly Arteaga on 99-87-2742Umvgqrlfi RBC Auto Ql (Bld)0.1 /100{WBC}0-0.5FTrinity Health System East CampusPlatelet mean volume Auto (Bld) [Entitic vol]Ordered By: Kimberly Arteaga on 20-39-7329Ocdnwcoc mean volume (Bld) [Entitic vol]7.2 fL6.3-10.7FTrinity Health System East Campus Platelets Auto (Bld) [#/Vol]Ordered By: Kimberly Arteaga on 11-08-4793Jgwmarkqn (Bld) [#/Vol]152 10*3/iK259-942EchmpuoufPremier Health Atrium Medical CenterPotassium [Moles/volume] in Serum or PlasmaOrdered By: Kimberly Arteaga on 03-13-2023 Potassium [Moles/Vol]3.8 mmol/L3.5-5.1FTrinity Health System East CampusRBC Auto (Bld) [#/Vol]Ordered By: Kimberly Arteaga on 96-38-0788XQP (Bld) [#/Vol]3.81 10*6/uL3.60-5.00[facility] Medical Centererum or plasma anion gap determinationOrdered By: Kimberly Arteaga on 02-50-5530Chleh gap [Moles/Vol]TNP [facility] CenterComment on above:Test not performedSodium [Moles/volume] in Serum or PlasmaOrdered By: Kimberly Arteaga on 73-03-8481Mllnkh [Moles/Vol]141 mmol/Z594-071FqkejjfdsPremier Health Atrium Medical CenterUrea nitrogen [Mass/volume] in Serum or PlasmaOrdered By: Kimberly Arteaga on 79-51-9823Oxgx nitrogen [Mass/Vol]28 mg/dL7-25Prem[facility] Health Atrium Medical CenterWBC Auto (Bld) [#/Vol]Ordered By: Kimberly Arteaga on 85-29-3038OUF (Bld) [#/Vol]5.0 10*3/uL 3.8-11.6FTrinity Health System East CampusCholesterol [Mass/volume] in Serum or PlasmaOrdered By: Kimberly Arteaga on 13-04-4223Sqzozecnvac [Mass/Vol]118 mg/dL 140-200Prem[facility] Atrium Medical CenterComment on above:Chol less than 200 mg/dl low riskChol 201-239 mg/dl borderline riskChol 240 mg/dl and greater high riskCholesterol in LDL Calc [Mass/Vol]Ordered By: Kimberly Arteaga on 03-12-2023 Cholesterol in LDL [Mass/Vol]51 mg/dL0-100[facility] Comment on above:LDL ATP III CLASSIFICATIONLDL less than 100 mg/dL OptimalLDL 100-129 mg/dL Near or above qhapaknHBX085-076 mg/dL Borderline highLDL 160-189 mg/dL HighLDL greater than 189 mg/dL Very highCholesterol in VLDL Calc [Mass/Vol]Ordered By: Kimberly Arteaga on 51-39-5219Almqvrhjvbx in VLDL [Mass/Vol] 32 mg/dLMercy Health [address]. Vincent Medical Centererum or plasma high density lipoprotein (HDL) cholesterol measurementOrdered By: Kimberly Arteaga on 03-12-2023 Cholesterol in HDL [Mass/Vol]35 mg/cK76-00VouezkxczPremier Health Atrium Medical Center Comment on above:HDL CHOL ATP-III CLASSIFICATION Cardiovascular RiskHDL > or equal to 60 mg/dL LOWHDL < 40 mg/dL HIGHSerum or plasma total cholesterol/high density lipoprotein (HDL) cholesterol mass ratOrdered By: Kimberly Arteaga on 49-71-3509Qcwqwsyfujc.total/Cholesterol in HDL [Mass ratio]3.4 {ratio}<5.0 [facility] Medical CenterTriglyceride [Mass/volume] in Serum or Plasma Ordered By: Kimberly Arteaga on 38-28-0875Aktqvhgvfknq [Mass/Vol]160 mg/dL0-149 [facility] CenterComment on above:TRIG ATP III CLASSIFICATIONTRIG less than 150 mg/dL NormalTRIG 150-199 mg/dL Borderline highTRIG 200-500 mg/dL High TRIG greater than 500 mg/dL Very highStandard traceable to the Center for Disease Conrtrol and Prevention (CDC) test method. Activated partial thromboplastin time (aPTT) in platelet poor plasma by coagulation aOrdered By: Anthony Rose on 08-12-6309yQMM Coag (PPP) [Time]33.9 s25.1-36.5FTrinity Health System East CampusAutomated erythrocytes count in urine sediment (number/area)Ordered By: Anthony Rose on 58-22-3463CCX Auto (Urine sed) [#/Area]0-1 [HPF]0-4FTrinity Health System East CampusAutomated leukocytes count in urine sediment (number/area)Ordered By: Anthony Rose on 11-13-3186MOT Auto (Urine sed) [#/Area]10-19 [HPF]0-4FTrinity Health System East Campus Bilirubin Test strip Ql (U)Ordered By: Anthony Rose on 43-52-4539Katrshdqp Ql (U)NegativeNegCleveland Clinic Avon HospitalColor Auto (U)Ordered By: Anthony Rose on 24-14-1468Htdug (U)YellowYellowPremier Health Atrium Medical CenterCreatine kinase [Enzymatic activity/volume] in Serum or PlasmaOrdered By: Anthony Rose on 22-65-8756PS [Catalytic activity/Vol]64 U/S11-014TwjcysqayPremier Health Atrium Medical CenterCreatinine (Bld) [Mass/Vol]Ordered By: Anthony Rose on 78-23-8748Ewvzftzqcn [Mass/Vol]1.7 mg/dL0.6-1.3FTrinity Health System East Campus Comment on above:ER/ESD physician is notified/shown all ISTAT results.Critical values may be confirmed by laboratorytesting ifdeemed necessary by ER attending doctor.Ketones Auto test strip (U) [Mass/Vol]Ordered By: Anthony Rose on 19-26-4089Dqytenb (U) [Mass/Vol]NegativeNegativePremier Health Atrium Medical CenterLaboratory - CoagulationOrdered By: Anthony Rose on 52-40-4352ZU Coag (PPP) [Time]13.5 s9.0-12.9Prem[facility] Medical CenterLaboratory - UrinalysisOrdered By: Anthony Rose on 38-08-4870Rcgkvsf casts LM Ql (Urine sed)0-8 [LPF]0-8Prem[facility] Medical CenterMonocyte distribution width [Entitic volume] in Blood by AutomatedOrdered By: Anthony Rose on 03-11-2023 Monocyte distribution width Auto (Bld) [Entitic vol]17.19 %0.00-20.00Prem[facility] Medical CenterNitrite Test strip Ql (U)Ordered By: Anthony Rose on 28-69-5298Wnstkxs Ql (U)NegativeNegativePremier Health Atrium Medical CenterNo Panel InformationOrdered By: Anthony Rose on 64-49-9456Lvcajod Glucose Comment Glu2: cleaned meterPremier Health Atrium Medical CenterPlatelet poor plasma international normalized ratio (INR) by coagulation assay (relatOrdered By: Anthony Rose on 26-64-2789FUY Coag (PPP) [Relative time]1.2 {INR}[facility] Medical CenterComment on above:INR Therapeutic Range A) Pre- and Peroperative OAT started two weeks before surgery. NOT HIP SURGERY: 1.5 - 2.5 HIP SURGERY: 2 - 3B) Primary and secondary prevention of venous THROMBOSIS: 2 - 3C) Active venous thrombosis, pulmonary embolismand prevention of recurrent venous thrombosis: 2 - 3D) Prevention of arterial thromboembolismincluding patients with mechanical heart valves: 3 - 4.5Protein Auto test strip (U) [Mass/Vol]Ordered By: Anthony Rose on 56-02-9345Ckcfkfx (U) [Mass/Vol]Negative NegativeMercy Health St. Vincent Medical Centerpecific gravity Auto test strip (U) [Rel density]Ordered By: Anthony Rose on 22-74-3177Qehkhheg gravity (U) [Rel density]1.0201.001-1.030[facility] Medical Centerquamous epithelial cells detection in urine sediment by light microscopyOrdered By: Anthony Rose on 62-87-4987Mkezvxzgqp cells.squamous LM Ql (Urine sed)5-9 [HPF]0-2FTrinity Health System East CampusTroponin I.cardiac [Mass/volume] in Serum or Plasma by Detection limit <= 0.01 ng/Ordered By: Anthony Rose on 97-12-1086Cgelvoyv I.cardiac DL <= 0.01 ng/mL [Mass/Vol]3.7 pg/mL0.0-15.0Prem[facility] Medical CenterUrine bacteria detection by automated methodOrdered By: Anthony Rose on 33-08-5503Yrpxssce Auto Ql (U)None seenNone SeenPremier Health Atrium Medical CenterUrine clarity by refractometry automatedOrdered By: Anthony Rose on 48-36-1466Nzbbhoi Refractometry automated (U)ClearClearFTrinity Health System East CampusUrine culture routineOrdered By: Anthony Rose on 03-11-2023 Bacteria identified Cx Nom (U)Escherichia coliPremier Health Atrium Medical Center Urine glucose measurement by automated test strip (mass/volume)Ordered By: Anthony Roes on 72-22-2346Xubpwxr Auto test strip (U) [Mass/Vol]Normal mg/dL NormalPremier Health Atrium Medical CenterUrine hemoglobin detection by automated test stripOrdered By: Anthony Rose on 95-49-7304Jwrshdpklg Auto test strip Ql (U)NegativeNegativePremier Health Atrium Medical CenterUrine leukocyte esterase detection by automated test stripOrdered By: Anthony Rose on 03-11-2023 Leukocyte esterase Auto test strip Ql (U)2+NegativePremier Health Atrium Medical CenterUrobilinogen Auto test strip (U) [Mass/Vol]Ordered By: Anthony Rose on 42-94-3701Mchibmicrlyt (U) [Mass/Vol]Normal mg/dLNormalPremier Health Atrium Medical CenterpH Auto test strip (U)Ordered By: Anthony Rose on 18-84-6847tH (U)5.0 [pH]5.0-9.0Prem[facility] Medical CenterMAGNESIUMon 02-23-2023 Magnesium [Mass/Vol]1.3 mg/dLCritically low1.8-2.4The Uc HealthComment on above:Performed By: #### MG #### [facility] [address] [place] [address] Dr. Anamika VargheseAlbumin [Mass/volume] in Serum or PlasmaOrdered By: Vinay Matta on 40-68-1080Bitkdgr [Mass/Vol]3.6 g/dL3.2-5.5FTrinity Health System East CampusAlkaline phosphatase [Enzymatic activity/volume] in Serum or Plasma Ordered By: Vinay Bunting on 74-91-1456QIG [Catalytic activity/Vol]100 U/L32-92 [facility] Medical CenterAspartate aminotransferase [Enzymatic activity/volume] in Serum or PlasmaOrdered By: Vinay Bunting on 01-68-3931SVR [Catalytic activity/Vol]31 U/G08-51GdmvpmeejPremier Health Atrium Medical CenterBasophils Auto (Bld) [#/Vol]Ordered By: Vinay Bunting on 42-51-5409Zatnescyf (Bld) [#/Vol]0.0 10*3/uL0.0-0.2FTrinity Health System East CampusBasophils/100 WBC Auto (Bld)Ordered By: Vinay Bunting on 19-92-7904Imehpvtpl/100 WBC (Bld)0.2 %. [facility] Medical CenterBilirubin.total [Mass/volume] in Serum or PlasmaOrdered By: Vinay Bunting on 18-25-6356Xqkejhtnp [Mass/Vol]0.5 mg/dL 0.3-1.2FTrinity Health System East CampusCalcium [Mass/volume] in Serum or Plasma Ordered By: Vinay Bunting on 43-16-7443Foupfht [Mass/Vol]8.2 mg/dL8.2-10.2 [facility] CenterCarbon dioxide, total [Moles/volume] in Serum or PlasmaOrdered By: Vinay Bunting on 09-30-6312ZG0 [Moles/Vol]28.0 mmol/L 22.0-30.0Prem[facility] Medical CenterChloride [Moles/volume] in Serum or PlasmaOrdered By: Vinay Bunting on 36-75-4578Vkxlrrdw [Moles/Vol]101 mmol/L 95-114Prem[facility] Medical CenterCholesterol [Mass/volume] in Serum or PlasmaOrdered By: Vinay Bunting on 49-43-0854Xstpwejsgka [Mass/Vol]130 mg/dL 140-200Prem[facility] Medical CenterComment on above:Chol less than 200 mg/dl low riskChol 201-239 mg/dl borderline riskChol 240 mg/dl and greater high riskCholesterol in LDL Calc [Mass/Vol]Ordered By: Vinay Bunting on 01-16-2023 Cholesterol in LDL [Mass/Vol]74 mg/dL0-100[facility] Comment on above:LDL ATP III CLASSIFICATIONLDL less than 100 mg/dL OptimalLDL 100-129 mg/dL Near or above nbsfifyBIM798-120 mg/dL Borderline highLDL 160-189 mg/dL HighLDL greater than 189 mg/dL Very highCholesterol in VLDL Calc [Mass/Vol]Ordered By: Vinay Bunting on 33-46-5324Mvpoajxpspo in VLDL [Mass/Vol] 21 mg/dLPremier Health Atrium Medical CenterCreatinine and Glomerular filtration rate.predicted panel (S/P/Bld)Ordered By: Vinay Bunting on 93-23-6225Isullhlxlp [Mass/Vol]1.51 mg/dL0.44-1.03Prem[facility] Medical CenterEosinophils Auto (Bld) [#/Vol]Ordered By: Vinay Bunting on 17-34-8520Ysmwiytwvxm (Bld) [#/Vol] 0.1 10*3/uL0.0-0.45Prem[facility] Medical CenterEosinophils/100 WBC Auto (Bld)Ordered By: Vinay Bunting on 87-29-9599Fyfuobkxivj/100 WBC (Bld)2.2 %. [facility] CenterErythrocyte distribution width Auto (RBC) [Ratio]Ordered By: Vinay Bunting on 09-27-6606Wqezcxomkam distribution width (RBC) [Ratio]17.4 %11.9-15.3FTrinity Health System East CampusEstimated glomerular filtration rate (GFR) non- AmericanOrdered By: Vinay Bunhomer on 63-04-8476JNO/1.73 sq M.predicted among non-blacks MDRD (S/P/Bld) [Vol rate/Area]34 mL/MinPremier Health Atrium Medical CenterGlobulin Calc (S) [Mass/Vol] Ordered By: Vinay Bunting on 40-78-1254Hemvrhlm (S) [Mass/Vol]2.3 g/dLPremier Health Atrium Medical CenterGlucose [Mass/volume] in Serum or PlasmaOrdered By: Vinay Bunting on 99-33-0535Ikbixby [Mass/Vol]162 mg/rG39-504NcybgktrdPremier Health Atrium Medical CenterComment on above:ADA recommended reference rangeRandom Glucose Reference Range is dependent on time and content of last meal. Glucose of more than 200 mg/dL in a nonstressed, ambulatory subject supports the diagnosisof Diabetes Mellitus.Glucose mean value [Mass/volume] in Blood Estimated from glycated hemoglobinOrdered By: Vinay Matta on 21-21-3707Tlkbclp glucose Estimated from glycated hemoglobin (Bld) [Mass/Vol]171 mg/dLPremier Health Atrium Medical CenterHematocrit Auto (Bld) [Volume fraction]Ordered By: Vinay Matta on 53-52-9811Lrxzbvontq (Bld) [Volume fraction]31.4 %34.0-46.4FTrinity Health System East CampusHemoglobin A1c percentageOrdered By: Vinay Matta on 01-16-2023 HbA1c (Bld) [Mass fraction]7.6 %4.3-5.6FTrinity Health System East CampusComment on above:Increased risk for diabetes: 5.7 - 6.4diabetes: >6.4glycemic control for adults with diabetes: <7.0Hemoglobin [Mass/volume] in BloodOrdered By: iVnay Matta on 05-73-0176Ozelcbtzfy (Bld) [Mass/Vol]10.6 g/dL11.8-15.4 [facility] CenterLeukocytes [#/volume] corrected for nucleated erythrocytes in Blood by Automated counOrdered By: Vinay Matta on 01-16-2023 WBC corrected for nucl RBC Auto (Bld) [#/Vol]5.7 10*3/uL3.8-11.6FTrinity Health System East CampusLymphocytes Auto (Bld) [#/Vol]Ordered By: Vinay Matta on 77-47-0352Xevhknuotey (Bld) [#/Vol]1.3 10*3/uL1.00-4.8Prem[facility] Medical CenterLymphocytes/100 WBC Auto (Bld)Ordered By: Vinay Matta on 21-66-7576Iqvvrgkviwj/100 WBC (Bld)22.6 %.[place] Auto (RBC) [Entitic mass]Ordered By: Vinay Matta on 93-86-7345BUQ (RBC) [Entitic mass]28.7 pg24.7-34.3FTrinity Health System East CampusMCHC Auto (RBC) [Mass/Vol]Ordered By: Vinay Matta on 02-65-2533VDFV (RBC) [Mass/Vol]33.7 g/dL 32.0-35.0[facility] Medical CenterMCV Auto (RBC) [Entitic vol]Ordered By: Vinay Bunting on 66-92-1905IEH (RBC) [Entitic vol]85.1 dJ31-522GtijvdjpdPremier Health Atrium Medical CenterMonocytes Auto (Bld) [#/Vol]Ordered By: Vinay Bunting on 90-58-9266Xpqxvfneg (Bld) [#/Vol]0.3 10*3/uL0.0-0.8Prem[facility] Medical CenterMonocytes/100 WBC Auto (Bld)Ordered By: Vinay Bunting on 01-16-2023 Monocytes/100 WBC (Bld)4.5 %.[facility] Medical CenterNeutrophils Auto (Bld) [#/Vol]Ordered By: Vinay Bunting on 24-57-0999Vxwmpxiprnr (Bld) [#/Vol] 4.0 10*3/uL1.8-7.7FTrinity Health System East CampusNeutrophils/100 WBC Auto (Bld)Ordered By: Vinay Bunting on 44-23-1684Gtmohvrnlva/100 WBC (Bld)70.5 %. [facility] CenterNo Panel InformationOrdered By: Vinay Matta on 94-15-3907Qktmwhgcc GFR ()41 mL/MinPremier Health Atrium Medical CenterComment on above:GFR estimated reference range: According to KDOQI guidelines, <60 ml/min/1.73m2 is sufficient todiagnose a patient with chronic kidney disease.Pharmacy Creatinine Clearance (ChemN/[facility]Kit[facility] HospitalNucleated erythrocytes [Presence] in Blood by Automated countOrdered By: Vinay Matta on 66-08-5398Drlvrfxjt RBC Auto Ql (Bld)0.1 /100{WBC}0-0.5 [facility] Medical CenterPlatelet mean volume Auto (Bld) [Entitic vol] Ordered By: Vinay Matta on 04-99-7138Mgterffm mean volume (Bld) [Entitic vol] 7.4 fL6.3-10.7FTrinity Health System East CampusPlatelets Auto (Bld) [#/Vol] Ordered By: Vinay Bunting on 30-43-3898Akoljpiou (Bld) [#/Vol]152 10*3/uL 150-450Prem[facility] Medical CenterPotassium [Moles/volume] in Serum or PlasmaOrdered By: Vinay Bunting on 59-74-0093Wfvjvrmlt [Moles/Vol]4.0 mmol/L 3.5-5.1FTrinity Health System East CampusProtein [Mass/volume] in Serum or Plasma Ordered By: Vinay Bunting on 83-52-7446Fglyhlr [Mass/Vol]5.9 g/dL6.1-7.9 [facility] Medical CenterRBC Auto (Bld) [#/Vol]Ordered By: Vinay Bunting on 83-50-6223YCX (Bld) [#/Vol]3.69 10*6/uL3.60-5.00[facility] Centererum or plasma alanine aminotransferase measurement without P-5'-P (enzymatic activiOrdered By: Vinay Bunting on 30-63-9425IJR No additional P-5'-P [Catalytic activity/Vol]26 U/K45-05SisoujlvrMercy Health St. Vincent Medical Centererum or plasma albumin/globulin mass ratioOrdered By: Vinay Bunting on 67-32-2142Edlqotp/Globulin [Mass ratio]1.6 {ratio}[facility] Centererum or plasma anion gap determinationOrdered By: Vinay Bunting on 56-44-5145Inwle gap [Moles/Vol]16.0 mmol/L6.0-15.0[facility] Centererum or plasma high density lipoprotein (HDL) cholesterol measurement Ordered By: Vinay Bunting on 99-61-5492Xywgrgorpld in HDL [Mass/Vol]34 mg/dL 35-85Prem[facility] Atrium Medical CenterComment on above:HDL CHOL ATP-III CLASSIFICATION Cardiovascular RiskHDL > or equal to 60 mg/dL LOWHDL < 40 mg/dL HIGHSerum or plasma total cholesterol/high density lipoprotein (HDL) cholesterol mass ratOrdered By: Vinay Bunting on 69-30-4388Pqepwmkdfsf.total/Cholesterol in HDL [Mass ratio]3.8 {ratio}<5.0[facility] Medical Centerodium [Moles/volume] in Serum or PlasmaOrdered By: Vinay Matta on 78-67-9535Hznhlm [Moles/Vol]141 mmol/E503-678NcmdhnprwPremier Health Atrium Medical CenterTriglyceride [Mass/volume] in Serum or PlasmaOrdered By: Vinay Matta on 01-16-2023 Triglyceride [Mass/Vol]109 mg/yZ49-506StmoxxidbPremier Health Atrium Medical CenterComment on above:TRIG ATP III CLASSIFICATIONTRIG less than 150 mg/dL NormalTRIG 150-199 mg/dL Borderline highTRIG 200-500 mg/dL High TRIG greater than 500 mg/dL Very highStandard traceable to the Center for Disease Conrtrol and Prevention (CDC) test method.Urate [Mass/volume] in Serum or PlasmaOrdered By: Vinay Matta on 47-77-5111Rjpdg [Mass/Vol]5.7 mg/dL2.6-7.2FTrinity Health System East CampusUrea nitrogen [Mass/volume] in Serum or PlasmaOrdered By: Vinay Matta on 94-74-2123Anff nitrogen [Mass/Vol]42 mg/dL9-23[facility] WBC Auto (Bld) [#/Vol]Ordered By: Vinay Matta on 80-75-3061VKT (Bld) [#/Vol] 5.7 10*3/uL3.8-11.6FTrinity Health System East CampusGlucose Glucometer (BldC) [Mass/Vol]Ordered By: Rafael Edouard on 45-65-1273Jdgxpeb [Mass/Vol]165 mg/dL [facility] CenterComment on above:Random Glucose Reference Range is dependent on time and content of last meal. Glucose of more than 200 mg/dL in a nonstressed, ambulatory subject supports the diagnosis of Diabetes Mellitus.CBC W Auto Differential panel (Bld)on 34-90-9692Ypzlwpojd (Bld) [#/Vol] <0.11 k/uLAvita Health SystemBasophils/100 WBC (Bld)0.4 %[facility] Differential cell count method Nom (Bld)AutoCleveland ClinicEosinophils (Bld) [#/Vol]0.12 10*3/uL<0.46 k/uLCleKettering Health MiamisburgEosinophils/100 WBC (Bld)2.2 % [facility] SystemErythrocyte distribution width (RBC) [Ratio]16.9 %High11.5 - 15.0 %[facility] SystemHematocrit (Bld) [Volume fraction]27.7 %Low36.0 - 46.0 % [facility] SystemHemoglobin (Bld) [Mass/Vol]8.5 g/dLLow11.5 - 15.5 g/dLAvita Health SystemImmature granulocytes (Bld) [#/Vol]<0.10 k/uLAvita Health SystemImmature granulocytes/100 WBC (Bld)0.2 %[facility] SystemLymphocytes (Bld) [#/Vol]1.07 10*3/uL1.00 - 4.00 k/uLAvita Health SystemLymphocytes/100 WBC (Bld)19.6 %[facility] HospitalH (RBC) [Entitic mass]25.3 pgLow26.0 - 34.0 pgClevelLuverne Medical CenterHC (RBC) [Mass/Vol]30.7 g/dL30.5 - 36.0 g/dLHenry County HospitalV (RBC) [Entitic vol]82.4 fL80.0 - 100.0 fLCleveland ClinicMonocytes (Bld) [#/Vol]0.25 10*3/uL<0.87 k/uL LariosKettering Health MiamisburgMonocytes/100 WBC (Bld)4.6 %[facility] SystemNeutrophils (Bld) [#/Vol]3.99 10*3/uL1.45 - 7.50 k/uLAvita Health SystemNeutrophils/100 WBC (Bld)73.0 %[facility] SystemNucleated RBC (Bld) [#/Vol]<0.01 k/uLAvita Health SystemNucleated RBC/100 WBC (Bld) [Ratio]0.0 /100 WBCAvita Health SystemPlatelet mean volume (Bld) [Entitic vol]9.4 fL9.0 - 12.7 fLCleveland ClinicPlatelets (Bld) [#/Vol]170 10*3/uL150 - 400 k/uLCleveland ClinicRBC (Bld) [#/Vol]3.36 10*6/uLLow3.90 - 5.20 m/[facility] CenterWBC (Bld) [#/Vol]5.46 10*3/uL3.70 - 11.00 k/[facility] CenterComprehensive metabolic 2000 panelon 60-31-7953Jeffjdt [Mass/Vol]4.3 g/dL 3.9 - 4.9 g/dLGeorgetown ClinicALP [Catalytic activity/Vol]120 U/L34 - 123 U/L [facility] ClinicALT [Catalytic activity/Vol]20 U/L7 - 38 U/LCleveland [facility] Anion gap [Moles/Vol]12 mmol/L9 - 18 mmol/LCleveland ClinicAST [Catalytic activity/Vol]28 U/L13 - 35 U/LCleveland Sleepy Eye Medical CenterBilirubin [Mass/Vol]0.2 mg/dL0.2 - 1.3 mg/dLGeorgetown ClinicCalcium [Mass/Vol]8.8 mg/dL8.5 - 10.2 mg/dLAvita Health SystemChloride [Moles/Vol]109 mmol/LHigh97 - 105 mmol/LCleveland ClinicCO2 [Moles/Vol]27 mmol/L22 - 30 mmol/LCleveland ClinicCreatinine [Mass/Vol]1.34 mg/dLHigh0.58 - 0.96 mg/dLAvita Health SystemEstimated Glomerular Filtration Rate42 mL/min/1.73mLow>=60 mL/min/1.73mCleveland Sleepy Eye Medical CenterGlucose [Mass/Vol]191 mg/dLHigh 74 - 99 mg/dLAvita Health SystemPotassium [Moles/Vol]3.7 mmol/L3.7 - 5.1 mmol/L [facility] ClinicProtein [Mass/Vol]6.8 g/dL6.3 - 8.0 g/dLGeorgetown ClinicSodium [Moles/Vol]148 mmol/SYymo700 - 144 mmol/LCleveland Sleepy Eye Medical CenterUrea nitrogen [Mass/Vol]35 mg/dLHigh7 - 21 mg/dLAvita Health SystemLD LACTATE DEHYDROon 87-83-0738XEN [Catalytic activity/Vol]163 U/L135 - 214 U/LCleveland ClinicRETIC COUNTon 52-85-8537Fhluxcpmgxxrw (Bld) [#/Vol]0.95030 10*3/uL0.018 - 0.100 M/uL [facility]orgetown ClinicReticulocytes (Bld) [#/Vol]on 63-21-2724Eegwxicyadpbc/100 RBC (Bld)2.8 %High0.4 - 2.0 %[facility] Health SystemHEMATOLOGYOrdered By: SYSTEM SYSTEM on 72-05-2021Qclfwpgbx/100 WBC (Bld)0.3 %Normal0.0 - 2.0 %[facility] HemeAutoSS Basophils/Leukocytes Auto (Bld) [Pure # fraction]0.0 E9/LNormal0.0 - 0.2 E9/L [facility] HemeAutoSSEosinophils/100 WBC (Bld)2.3 %Normal0.0 - 8.0 %[facility] HemeAutoSS Eosinophils/Leukocytes Auto (Bld) [Pure # fraction]0.1 E9/LNormal0.0 - 0.5 E9/L [facility] HemeAutoSSLymphocytes/100 WBC (Bld)21.9 %Meswap02.0 - 50.0 %[facility] HemeAutoSS Lymphocytes/Leukocytes Auto (Bld) [Pure # fraction]1.3 E9/LNormal1.0 - 4.0 E9/L [facility] HemeAutoSSMonocytes/100 WBC (Bld)5.0 %Normal4.0 - 14.0 %[facility] HemeAutoSS Monocytes/Leukocytes Auto (Bld) [Pure # fraction]0.3 E9/LNormal0.2 - 1.0 E9/L [facility] HemeAutoSSNeutrophils/100 WBC (Bld)70.5 %Yqgmtr94.0 - 75.0 %[facility] HemeAutoSS Neutrophils/Leukocytes Auto (Bld) [Pure # fraction]4.3 E9/LNormal2.0 - 7.5 E9/L [facility] HemeAutoSSHEMATOLOGYOrdered By: Tammy Green on 55-10-5683Ernbknxjlsy distribution width (RBC) [Ratio]18.3 %High10.9 - 14.2 %[facility] HemeAutoSSHematocrit (Bld) [Volume fraction]27.6 %Low34.0 - 46.0 %[facility] HemeAutoSSHemoglobin (Bld) [Mass/Vol]9.1 g/dLLow12.0 - 16.0 gm/dLFTMC HemeAutoSSMCH (RBC) [Entitic mass] 25.6 pgLow27.0 - 34.0 pgFTMC HemeAutoSSMCHC (RBC) [Mass/Vol]33.1 g/tYLalrfs23.4 - 36.0 gm/dLFTMC HemeAutoSSMCV (RBC) [Entitic vol]77.5 fLLow80.0 - 100.0 fLFTMC HemeAutoSSPlatelet mean volume (Bld) [Entitic vol]7.2 fLNormal6.4 - 10.8 fLFTMC HemeAutoSSPlatelets (Bld) [#/Vol]189.0 E9/NToasfz022.0 - 500.0 E9/LFW[facility] HemeAutoSSRBC (Bld) [#/Vol]3.6 E12/LLow4.3 - 5.9 E12/LFWILLOW [facility]ST [facility] [place] HemeAutoSSWBC corrected for nucl RBC Auto (Bld) [#/Vol]6.1 E9/LNormal4.0 - 11.0 E9/LFWILLOW [facility] [place] HemeAutoSSBNPon 58-09-5863Vcvunrghzne peptide B (Bld) [Mass/Vol]146.0 pg/mL Normal<=900.0The Uc HealthComment on above:Performed By: #### BNP #### [facility] [address] [place] [address] Dr. Anamika Brown AUTO DIFFon 81-30-5969VSPC #0.0 103/ulNormal0.0-0.1The Uc HealthComment on above:Performed By: #### CBC #### [facility] [address] [place] [address] Dr. Anamika Peñaphils/100 WBC (Bld)0.4 %Normal0.2-2.0[facility] Comment on above:Performed By: #### CBC #### [facility] [address] [place] [address] Dr. Anamika Barth #0.2 103/ulNormal0.0-0.7The Uc HealthComment on above: Performed By: #### CBC #### [facility] [address] [address] [address] Anamika Holdenosinophils/100 WBC (Bld)3.6 %Normal0.9-7.0The [facility] Comment on above:Performed By: #### CBC #### [facility] [address] [place] [address] Dr. Anamika Holdenrythrocyte distribution width (RBC) [Ratio]16.4 %Critically high 11.0-15.0[facility] on above:Performed By: #### CBC #### [facility] [address] [place] [address] Dr. Anamika VargheseHematocrit (Bld) [Volume fraction]28.9 %Critically low36.0-48.0 [facility] on above:Performed By: #### CBC #### [facility] [address] [place] [address] Dr. Anamika VargheseHemoglobin (Bld) [Mass/Vol]9.0 g/dLCritically low12.0-16.0The [facility]Comment on above:Performed By: #### CBC #### [facility] [address] [place] [address] Dr. Anamika Keane #0.02 10e3/ulNormal0.00-0.03The [facility] HealthComment on above:Performed By: #### CBC #### [facility] [address] [place] [address] Dr. Anamika Keane %0.3 %Normal0.0-0.5The [facility] HealthComment on above: Performed By: #### CBC #### [facility] [address] [place] [address] Dr. Anamika Portillo #1.8 103/ulNormal1.2-3.8The Uc HealthComment on above:Performed By: #### CBC #### [facility] [address] [place] [address] Dr. Anamika Cohnmphocytes/100 WBC (Bld)26.1 %Mwxdus74.5-60.0The Uc HealthComment on above:Performed By: #### CBC #### [facility] [address] [address] [address] Anamika Fuentes DIFF REQNONormalThe Uc HealthComment on above: Performed By: #### CBC #### [facility] [address] [address] [address] Anamika Jean (RBC) [Entitic mass]25.8 pgCritically low26.7-34.0The Uc HealthComment on above:Performed By: #### CBC #### [facility] [address] [place] [address] Dr. Anamika Jean (RBC) [Mass/Vol]31.1 g/cWLzgzfi53.9-35.2The Uc HealthComment on above:Performed By: #### CBC #### [facility] [address] [place] [address] Dr. Anamika Jean (RBC) [Entitic vol]82.8 gRIaaazh33.0-99.0The Uc HealthComment on above:Performed By: #### CBC #### [facility] [address] [place] [address] Dr. Anamika Gerber #0.3 103/ulNormal0.3-0.8The Uc HealthComment on above:Performed By: #### CBC #### [facility] [address] [place] [address] Dr. Anamika Beaulieuocytes/100 WBC (Bld)5.0 %Normal1.7-12.0The [facility] Comment on above:Performed By: #### CBC #### [facility] [address] [address] [address] Anamika Rowe #4.4 103/ulNormal1.4-6.5The Uc HealthComment on above:Performed By: #### CBC #### [facility] [address] [place] [address] Dr. Anamika Bautistautrophils/100 WBC (Bld)64.6 %Xledhr99.0-75.0The [facility] on above:Performed By: #### CBC #### [facility] [address] [address] [address] Anamika Millslet mean volume (Bld) [Entitic vol]8.7 fLCritically low 9.5-13.5The [facility] on above:Performed By: #### CBC #### [facility] [address] [address] [address] Anamika VarghesePLT188 103/kiPtxeur806-404Jxd [facility] on above: Performed By: #### CBC #### [facility] [address] [place] [address] Dr. Anamika VargheseRBC3.49 106/ulCritically low4.20-5.40The [facility] on above:Performed By: #### CBC #### [facility] [address] [place] [address] Dr. Anamika VargheseWBC6.7 103/ulNormal4.0-11.0The [facility] on above: Performed By: #### CBC #### [facility] [address] [place] [address] Dr. Anamika VargheseGLYCOHEMOGLOBIN A1Con [id number] RECOMMENDATIONSEE BELOWNormal [facility] on above:Result Comment: ADA RECOMMENDED LIMIT 4.0 - 6.0 ADA THERAPEUTIC TARGET < 7.0 ACTION SUGGESTED > 7.0Performed By: #### FETIBC FERR, B12FOL #### [facility] [address] [place] [address] Dr. Anamika VargheseGlucose [Mass/Vol]166 mg/dLNormalThe [facility] on above:Performed By: #### FETIBC, FERR, B12FOL #### [facility] [address] [place] [address] Dr. Anamika VargheseHbA1c (Bld) [Mass fraction]7.4 %Critically high4.5-6.2The [facility] on above:Performed By: #### FETIBC, FERR, B12FOL #### [facility] [address] [address] [address] Anamika RossID PROFILEon [id number]-HDL RATIO NORMSKettering Health – Soin Medical CenterComment on above:Result Comment: 3.3 - 4.4 LOW RISK 4.4 - 7.1 AVERAGE RISK 7.1 - 11.0 MODERATE RISK >11.0 HIGH RISKPerformed By: #### LIPID, CMP #### [facility] [address] [address] [address] Anamika VargheseCholesterol [Mass/Vol]118 mg/dLNormal<=200The [facility] Comment on above:Performed By: #### LIPID, CMP #### [facility] [address] [address] [address] Anamika VargheseCholesterol in HDL [Mass/Vol]41 mg/rXQawrri42-68XidHolmes County Joel Pomerene Memorial HospitalComment on above:Performed By: #### LIPID, CMP #### [facility] [address] [place] [address] Dr. Anamika VargheseCholesterol in LDL [Mass/Vol]60.4 mg/dLLancaster Municipal HospitalComment on above:Performed By: #### LIPID, CMP #### [facility] [address] [place] [address] Dr. Anamika Dejesusestertomi.total/Cholesterol in HDL [Mass ratio]2.9 {ratio} NormalHolmes County Joel Pomerene Memorial HospitalComment on above:Performed By: #### LIPID, CMP #### [facility] [address] [place] [address] Dr. Anamika MontanoL NORMAL> or = 60 mg/dl - LOW CARDIOVASCULAR RISK <40 mg/dl - HIGH CARDIOVASCULAR RISKLancaster Municipal HospitalComment on above:Performed By: #### LIPID, CMP #### [facility] [address] [place] [address] Dr. Anamika VargheseLDL CALC NORMALSEE [facility] HospitalComment on above:Result Comment: <100 mg/dl OPTIMAL 100 - 129 mg/dl NEAR OR ABOVE OPTIMAL 130 - 159 mg/dl BORDERLINE HIGH 160 - 189 mg/dl HIGH >190 mg/dl VERY HIGH Performed By: #### LIPID, CMP #### [facility] [address] [place] [address] Dr. Anamika VargheseTriglyceride [Mass/Vol]83 mg/dLNormal<=150[facility] Comment on above:Performed By: #### LIPID, CMP #### [facility] [address] [place] [address] Dr. Anamika GamboaLDL CALC16.6 mg/dLNoUniversity Hospitals Lake West Medical CenterComment on above: Performed By: #### LIPID, CMP #### [facility] [address] [place] [address] Dr. Anamika HammROALGm CREAT RATIO RANDOMon 06-83-5713tTUB<1.3Normal<=30.0The Uc HealthComment on above:Performed By: #### FETIBC, FERR, B12FOL #### [facility] [address] [place] [address] Dr. Anamika Maki CR RATIO22.0 mg/gNormal0.0-29.9The Uc HealthComment on above:Performed By: #### FETIBC, FERR, B12FOL #### [facility] [address] [place] [address] Dr. Anamika Maki CR RATIO RANGESEE BELOWNoUniversity Hospitals Lake West Medical CenterComment on above:Result Comment: NO MICROALBUMINURIA 0-29 MG/G CLINICAL MICROALBUMINURIA 30-300 MG/G MACROALBUMINURIA >300 MG/GPerformed By: #### FETIBC, FERR, B12FOL #### [facility] [address] [place] [address] Dr. Anamika Montiel CREAT59.04 mg/wSFrjank14.00-300.00[facility] Comment on above:Performed By: #### FETIBC, FERR, B12FOL #### [facility] [address] [place] [address] Dr. Anamika VarghesePROReinaldo 14(COMP METB)on 43-48-3948Omhsrqz [Mass/Vol]3.6 g/dLNormal 3.4-5.0The Uc HealthComment on above:Performed By: #### LIPID, CMP #### [facility] [address] [place] [address] Dr. Anamika VargheseAlbumin/Globulin [Mass ratio]1.0 {ratio}NormalThe Uc HealthComment on above:Performed By: #### LIPID, CMP #### [facility] [address] [address] [address] Anamika McqueenP [Catalytic activity/Vol]128 U/LCritically kizp81-042Fsa Uc HealthComment on above:Performed By: #### LIPID, CMP #### [facility] [address] [place] [address] Dr. Anamika Cook [Catalytic activity/Vol]30 U/DKsiuiy26-74Uhv Uc HealthComment on above:Performed By: #### LIPID, CMP #### [facility] [address] [place] [address] Dr. Anamika Winn gap [Moles/Vol]14.9 mmol/LNormalThe [facility] Comment on above:Performed By: #### LIPID, CMP #### [facility] [address] [place] [address] Dr. Anamika Barber [Catalytic activity/Vol]23 U/CPpdjpo45-61Qir Uc HealthComment on above:Performed By: #### LIPID, CMP #### [facility] [address] [place] [address] Dr. Anamika VargheseBilirubin [Mass/Vol]0.3 mg/dLNormal0.2-1.0The [facility] Comment on above:Performed By: #### LIPID, CMP #### [facility] [address] [place] [address] Dr. Anamika VargheseCalcium [Mass/Vol]8.6 mg/dLNormal8.5-10.1The [facility] Comment on above:Performed By: #### LIPID, CMP #### [facility] [address] [place] [address] Dr. Anamika VargheseChloride [Moles/Vol]105 mmol/BQqwmoh49-733Rso [facility] Comment on above:Performed By: #### LIPID, CMP #### [facility] [address] [place] [address] Dr. Anamika VargheseCO2 [Moles/Vol]28.1 mmol/OIudyap59.0-32.0The [facility] Comment on above:Performed By: #### LIPID, CMP #### [facility] [address] [place] [address] Dr. Anamika VargheseCreatinine [Mass/Vol]1.58 mg/dLCritically high0.55-1.02[facility] HospitalComment on above:Performed By: #### LIPID, CMP #### [facility] [address] [place] [address] Dr. Anamika HoldenGFR-AF HJMEDNVF40 mL/min/1.11j3Cjsmalmjhh low>=60The Uc HealthComment on above:Performed By: #### LIPID, CMP #### [facility] [address] [place] [address] Dr. Anamika HoldenGFR-NON AF TOLMGOYS98 mL/min/1.99q3Ovrzszekgr low>=60The Uc HealthComment on above:Performed By: #### LIPID, CMP #### [facility] [address] [place] [address] Dr. Anamika VargheseGlobulin (S) [Mass/Vol]3.6 g/dLNormalThe Uc HealthComment on above:Performed By: #### LIPID, CMP #### [facility] [address] [place] [address] Dr. Anamika VarghseeGlucose [Mass/Vol]130 mg/dLCritically cctm53-212HcvHolmes County Joel Pomerene Memorial HospitalComment on above:Performed By: #### LIPID, CMP #### [facility] [address] [place] [address] Dr. Anamika VarghesePotassium [Moles/Vol]4.0 mmol/LNormal3.5-5.1The [facility] Comment on above:Performed By: #### LIPID, CMP #### [facility] [address] [address] [address] Anamika VargheseProtein [Mass/Vol]7.2 g/dLNormal6.4-8.2The [facility] Comment on above:Performed By: #### LIPID, CMP #### [facility] [address] [address] [address] Anamika VargheseSodium [Moles/Vol]144 mmol/JVjjroe280-379Zup [facility] Comment on above:Performed By: #### LIPID, CMP #### [facility] [address] [address] [address] Anamika VargheseUrea nitrogen [Mass/Vol]53.0 mg/dLCritically high7.0-18.0The Uc HealthComment on above:Performed By: #### LIPID, CMP #### [facility] [address] [place] [address] Dr. Anamika VargheseUrea nitrogen/Creatinine [Mass ratio]33.5 mg/mgNormalThe Uc HealthComment on above:Performed By: #### LIPID, CMP #### [facility] [address] [place] [address] Dr. Anamika VargheseCreatinine and Glomerular filtration rate.predicted panel (S/P/Bld)Ordered By: Anand Yusuf on 76-44-9206Neqkyafakp [Mass/Vol]1.41 mg/dL 0.44-1.03[facility] Medical CenterEstimated glomerular filtration rate (GFR) non- AmericanOrdered By: Anand Yusuf on 00-95-7179TFJ/1.73 sq M.predicted among non-blacks MDRD (S/P/Bld) [Vol rate/Area]37 mL/MinPremier Health Atrium Medical CenterNo Panel InformationOrdered By: Anand Yusuf on 12-11-1730Oalezbwed GFR ()44 mL/MinPremier Health Atrium Medical CenterComment on above:GFR estimated reference range: According to KDOQI guidelines, <60 ml/min/1.73m2 is sufficient todiagnose a patient with chronic kidney disease.Pharmacy Creatinine Clearance ([facility] Hospitalerum or plasma anion gap determinationOrdered By: Anand Yusuf on 99-94-1252Dnhuh gap [Moles/Vol]17.5 mmol/L6.0-15.0[facility] Medical Centererum or plasma calcium measurement (mass/volume)Ordered By: Anand Yusuf on 46-05-7322Uwqizvy [Mass/Vol]8.5 mg/dL8.2-10.2FUniversity Hospitals Beachwood Medical Centererum or plasma chloride measurement (moles/volume)Ordered By: Anand Yusuf on 59-50-1324Gobevezc [Moles/Vol]105 mmol/X11-063UdpyaizsjMercy Health St. Vincent Medical Centererum or plasma glucose measurement (mass/volume)Ordered By: Anand Yusuf on 29-76-7781Pfybvxl [Mass/Vol]97 mg/aW41-762UbucfkxnyPremier Health Atrium Medical CenterComment on above:ADA recommended reference range Random Glucose Reference Range is dependent on time and content of last meal. Glucose of more than 200 mg/dL in a nonstressed, ambulatory subject supports the diagnosis of Diabetes Mellitus.ADA recommended reference rangeRandom Glucose Reference Range is dependent on time and content of last meal. Glucose of more than 200 mg/dL in a nonstressed, ambulatory subject supports the diagnosisof Diabetes Mellitus.Serum or plasma potassium measurement (moles/volume)Ordered By: Anand Yusuf on 39-43-4541Nsoeesljt [Moles/Vol]4.3 mmol/L3.5-5.1FUniversity Hospitals Beachwood Medical Centererum or plasma sodium measurement (moles/volume)Ordered By: Anand Yusuf on 50-65-5449Zcffxv [Moles/Vol]141 mmol/N312-596DiquzqcgqMercy Health St. Vincent Medical Centererum or plasma total carbon dioxide measurement (moles/volume)Ordered By: Anand Yusuf on 26-32-8847GK0 [Moles/Vol]22.8 mmol/L 22.0-30.0[facility] Medical Centererum or plasma urea nitrogen measurement (mass/volume)Ordered By: Anand Yusuf on 15-67-2578Cngi nitrogen [Mass/Vol]37 mg/dL9-23Prem[facility] Atrium Medical CenterUrine culture routine Ordered By: Anand Yusuf on 81-97-2258Bpbglxng identified Cx Nom (U)Escherichia coliPremier Health Atrium Medical CenterAutomated erythrocytes count in urine sediment (number/area)Ordered By: Anand Ysuuf on 78-49-7177SUO Auto (Urine sed) [#/Area]0-1 [HPF]0-4FTrinity Health System East CampusAutomated leukocytes count in urine sediment (number/area)Ordered By: Anand Yusuf on 79-75-6266UCV Auto (Urine sed) [#/Area]5-9 [HPF]0-4FTrinity Health System East CampusBasophils Auto (Bld) [#/Vol]Ordered By: Anand Yusuf on 23-31-3078Jkynrigob (Bld) [#/Vol]0.1 10*3/uL0.0-0.2FTrinity Health System East CampusBasophils/100 WBC Auto (Bld) Ordered By: Anand Yusuf on 69-37-9003Wvxebcxvk/100 WBC (Bld)0.5 %.[facility] Medical CenterBilirubin Test strip Ql (U)Ordered By: Anand Yusuf on 75-56-5304Oyabgvykp Ql (U)NegativeNegativePremier Health Atrium Medical CenterBlood hemoglobin measurement (mass/volume)Ordered By: Anand Yusuf on 07-22-2022 Hemoglobin (Bld) [Mass/Vol]9.6 g/dL11.8-15.4FTrinity Health System East Campus Blood leukocytes automated count (number/volume)Ordered By: Anand Yusuf on 89-07-6034OXC (Bld) [#/Vol]11.6 10*3/uL4.5-11.0[facility] Body fluid albumin measurement (mass/volume)Ordered By: Anand Yusuf on 27-99-8305Svjwdka (Body fld) [Mass/Vol]3.0 g/dL3.2-5.5FTrinity Health System East CampusColor Auto (U)Ordered By: Anand Yusuf on 45-23-3857Itmik (U)YellowYellow [facility] CenterCreatinine and Glomerular filtration rate.predicted panel (S/P/Bld)Ordered By: Anand Yusuf on 44-75-5705Exdnerqtjz [Mass/Vol]1.63 mg/dL0.44-1.03[facility] Medical CenterEosinophils Auto (Bld) [#/Vol]Ordered By: Anand Yusuf on 56-31-9487Xreajpxedxv (Bld) [#/Vol]0.1 10*3/uL0.0-0.45Prem[facility] Medical CenterEosinophils/100 WBC Auto (Bld) Ordered By: Anand Yusuf on 65-00-5102Ggouojaqcnn/100 WBC (Bld)1.0 %.[facility] Medical CenterErythrocyte distribution width Auto (RBC) [Ratio]Ordered By: Anand Yusuf on 74-14-9577Excxfujcfbz distribution width (RBC) [Ratio]17.0 % 11.9-15.3FTrinity Health System East CampusEstimated glomerular filtration rate (GFR) non- AmericanOrdered By: Anand Yusuf on 91-36-8028KDR/1.73 sq M.predicted among non-blacks MDRD (S/P/Bld) [Vol rate/Area]31 mL/MinPremier Health Atrium Medical CenterGlobulin Calc (S) [Mass/Vol]Ordered By: Anand Yusuf on 91-17-4319Ptrnogwl (S) [Mass/Vol]3.3 g/dLPremier Health Atrium Medical Center Hematocrit Auto (Bld) [Volume fraction]Ordered By: Anand Yusuf on 07-22-2022 Hematocrit (Bld) [Volume fraction]28.6 %34.0-46.4FTrinity Health System East CampusKetones Auto test strip (U) [Mass/Vol]Ordered By: Anand Yusuf on 49-42-0720Htpeiuh (U) [Mass/Vol]TraceNegativePremier Health Atrium Medical Center Laboratory - Chemistry and Chemistry - challengeOrdered By: Anand Yusuf on 76-27-1455Cugvtzysm [Mass/Vol]1.4 mg/dL1.6-2.6FTrinity Health System East Campus Natriuretic peptide B (Bld) [Mass/Vol]44.0 pg/mL5-100Prem[facility] Medical CenterLaboratory - Hematology and Cell countsOrdered By: Anand Yusuf on 93-96-9778Rjddbdnjy RBC/100 WBC (Bld) [Ratio]0.0 %0-0.5FTrinity Health System East CampusLaboratory - UrinalysisOrdered By: Anand Yusuf on 07-22-2022 Hyaline casts LM Ql (Urine sed)0-8 [LPF]0-8[facility] Lymphocytes Auto (Bld) [#/Vol]Ordered By: Anand Yusuf on 43-53-9446Zdcootusfxa (Bld) [#/Vol]1.5 10*3/uL1.00-4.8Prem[facility] Medical CenterLymphocytes/100 WBC Auto (Bld)Ordered By: Anand Yusuf on 88-88-3408Jujqoiflogj/100 WBC (Bld) 13.0 %.[facility] HospitalH Auto (RBC) [Entitic mass]Ordered By: Anand Yusuf on 69-22-1432OFF (RBC) [Entitic mass]27.3 pg24.7-34.3FTrinity Health System East CampusMCHC Auto (RBC) [Mass/Vol]Ordered By: Anand Yusuf on 25-67-2357ZOWF (RBC) [Mass/Vol]33.5 g/dL32.0-35.0[facility] Medical CenterMCV Auto (RBC) [Entitic vol]Ordered By: Anand Yusuf on 32-52-2669IIJ (RBC) [Entitic vol]81.3 kR30-946ItpvqsrkdPremier Health Atrium Medical CenterMonocytes Auto (Bld) [#/Vol]Ordered By: Anand Yusuf on 30-77-4594Nnssuhzzr (Bld) [#/Vol]0.5 10*3/uL0.0-0.8[facility] Medical CenterMonocytes/100 WBC Auto (Bld) Ordered By: Anand Yusuf on 81-75-8367Qyfnxijtx/100 WBC (Bld)4.1 %.[facility] Medical CenterNeutrophils Auto (Bld) [#/Vol]Ordered By: Anand Yusuf on 38-58-6199Bifwerqnnwi (Bld) [#/Vol]9.5 10*3/uL1.8-7.7FTrinity Health System East CampusNeutrophils/100 WBC Auto (Bld)Ordered By: Anand Yusuf on 07-22-2022 Neutrophils/100 WBC (Bld)81.4 %.[facility] Medical CenterNitrite Test strip Ql (U)Ordered By: Anand Yusuf on 93-04-3715Rcdupbz Ql (U)NegativeNegative [facility] CenterNo Panel InformationOrdered By: Anand Yusuf on 16-09-4149Kntvfzori GFR ()37 mL/MinPremier Health Atrium Medical CenterComment on above:GFR estimated reference range: According to KDOQI guidelines, <60 ml/min/1.73m2 is sufficient todiagnose a patient with chronic kidney disease.Pharmacy Creatinine Clearance (Chem34.96Prem[facility] Medical CenterPlatelet mean volume Auto (Bld) [Entitic vol]Ordered By: Anand Yusuf on 29-35-4911Ypuhmwrc mean volume (Bld) [Entitic vol]7.3 fL6.3-10.7 [facility] Medical CenterPlatelets Auto (Bld) [#/Vol]Ordered By: Anand Yusuf on 49-75-0152Kgzxsvuav (Bld) [#/Vol]253 10*3/aG653-419WcozgtrglPremier Health Atrium Medical CenterProtein Auto test strip (U) [Mass/Vol]Ordered By: Anand Yusuf on 02-04-7863Bkixgfx (U) [Mass/Vol]NegativeNegativePremier Health Atrium Medical CenterProtein [Mass/volume] in Serum or PlasmaOrdered By: Anand Yusuf on 35-98-4065Ygvhnwf [Mass/Vol]6.3 g/dL6.1-7.9Prem[facility] Medical CenterRBC Auto (Bld) [#/Vol]Ordered By: Anand Yusuf on 24-28-2416ATX (Bld) [#/Vol]3.51 10*6/uL3.60-5.00[facility] Medical Centererum or plasma alanine aminotransferase measurement without P-5'-P (enzymatic activiOrdered By: Anand Yusuf on 21-91-4556OHF No additional P-5'-P [Catalytic activity/Vol]29 U/L10-[address] [facility] Medical Centererum or plasma albumin/globulin mass ratio Ordered By: Anand Yusuf on 16-11-2659Frrgbza/Globulin [Mass ratio]0.9 {ratio} [facility] Centererum or plasma alkaline phosphatase measurement (enzymatic activity/volume)Ordered By: Anand Yusuf on 21-64-5725WMN [Catalytic activity/Vol]99 U/E53-14HmoexjakyMercy Health St. Vincent Medical Centererum or plasma anion gap determinationOrdered By: Anand Yusuf on 79-34-4754Qckds gap [Moles/Vol]14.3 mmol/L6.0-15.0[facility] Centererum or plasma aspartate aminotransferase measurement (enzymatic activity/volume)Ordered By: Anand Yusuf on 64-93-8120MTK [Catalytic activity/Vol]31 U/K03-25GieixpkvwMercy Health St. Vincent Medical Centererum or plasma calcium measurement (mass/volume)Ordered By: Anand Yusuf on 54-53-7776Dahskyp [Mass/Vol]9.0 mg/dL8.2-10.2FUniversity Hospitals Beachwood Medical Centererum or plasma chloride measurement (moles/volume) Ordered By: Anand Yusuf on 35-10-7026Dagihxjr [Moles/Vol]107 mmol/L95-[address] [facility] Centererum or plasma glucose measurement (mass/volume)Ordered By: Anand Yusuf on 11-01-1483Hwcirtw [Mass/Vol]168 mg/dL 70-100Prem[facility]rium Medical CenterComment on above:ADA recommended reference range Random Glucose Reference Range is dependent on time and content of last meal. Glucose of more than 200 mg/dL in a nonstressed, ambulatory subject supports the diagnosis of Diabetes Mellitus.ADA recommended reference rangeRandom Glucose Reference Range is dependent on time and content of last meal. Glucose of more than 200 mg/dL in a nonstressed, ambulatory subject supports the diagnosisof Diabetes Mellitus.Serum or plasma potassium measurement (moles/volume)Ordered By: Anand Yusuf on 80-82-7494Jospbubkk [Moles/Vol]5.4 mmol/L3.5-5.1FUniversity Hospitals Beachwood Medical Centererum or plasma sodium measurement (moles/volume)Ordered By: Anand Yusuf on 55-01-8133Vwdril [Moles/Vol]140 mmol/Q783-998JsrlztcsmMercy Health St. Vincent Medical Centererum or plasma total bilirubin measurement (mass/volume) Ordered By: Anand Yusuf on 03-08-9383Yziyslkwd [Mass/Vol]0.6 mg/dL0.3-1.[address] [facility] Medical Centererum or plasma total carbon dioxide measurement (moles/volume)Ordered By: Anand Yusuf on 70-10-3488NJ2 [Moles/Vol] 24.1 mmol/L22.0-30.0[facility] Centererum or plasma urea nitrogen measurement (mass/volume)Ordered By: Anand Yusuf on 60-18-4374Rqpr nitrogen [Mass/Vol]53 mg/dL9-[facility] Medical Centerpecific gravity Auto test strip (U) [Rel density]Ordered By: Anand Yusuf on 32-98-7270Pwekrdtq gravity (U) [Rel density]1.0191.001-1.030[facility] Squamous epithelial cells detection in urine sediment by light microscopyOrdered By: Anand Yusuf on 66-58-0939Vwoabnbbcq cells.squamous LM Ql (Urine sed)1-2 [HPF]0-2FTrinity Health System East CampusTroponin I.cardiac [Mass/volume] in Serum or Plasma by High sensitivity methodOrdered By: Anand Yusuf on 07-22-2022 Troponin I.cardiac High sensitivity method [Mass/Vol]4 pg/mL0-15[facility] Medical CenterUrine bacteria detection by automated methodOrdered By: Anand Yusuf on 25-59-9915Foibtjkv Auto Ql (U)4+None SeenPremier Health Atrium Medical CenterUrine clarity by refractometry automatedOrdered By: Anand Yusuf on 56-50-5552Edbigxp Refractometry automated (U)CloudyCleLancaster Municipal HospitalUrine glucose measurement by automated test strip (mass/volume) Ordered By: Anand Yusuf on 97-51-5318Idgqfdm Auto test strip (U) [Mass/Vol] Normal mg/dLWilson Street HospitalUrine hemoglobin detection by automated test stripOrdered By: Anand Yusuf on 16-97-9562Yzyqdwyipt Auto test strip Ql (U)NegativeNegativePremier Health Atrium Medical CenterUrine lactic acid measurementOrdered By: Anand Yusfu on 13-64-5170Smnworv (U) [Moles/Vol]1.9 mmol/L0.5-2.2FTrinity Health System East CampusUrine leukocyte esterase detection by automated test stripOrdered By: Anand Yusuf on 96-05-4860Afczewfmj esterase Auto test strip Ql (U)2+NegativePremier Health Atrium Medical CenterUrobilinogen Auto test strip (U) [Mass/Vol]Ordered By: Anand Yusuf on 84-72-5106Djvmysfqyqds (U) [Mass/Vol]Normal mg/dLNoAshtabula County Medical CenterpH Auto test strip (U)Ordered By: Anand Yusuf on 06-97-3731nX (U)5.0 [pH]5.0-9.0Prem[facility] At[facility] Medical CenterFERRITINon 31-04-1366Xbegneob [Mass/Vol]39.0 ng/mLNormal 8.0-252.0The Uc HealthComment on above:Performed By: #### FETIBC, FERR, B12FOL #### [facility] [address] [place] [address] Dr. Anamika Raygoza AND TIBCon 06-24-2022% PVUVYMMLDF07.1 %NormalThe Uc HealthComment on above:Performed By: #### FETIBC FERR, B12FOL #### [facility] [address] [place] [address] Dr. Anamika Raygoza [Mass/Vol]52.0 ug/cVDyhlwd35.0-170.0The [facility] Comment on above:Performed By: #### FETIBC FERR, B12FOL #### [facility] [address] [place] [address] Dr. Anamika Singh KDNRQV457.0 ug/eQUnasob413.0-450.0The [facility] Comment on above:Performed By: #### FETIBC FERR, B12FOL #### [facility] [address] [place] [address] Dr. Anamika Nolan PROFILEon [id number] [Mass/Vol]3.5 g/dLNormal3.4-5.0 [facility]:Performed By: #### LIVER #### [facility] [address] [place] [address] Dr. Anamika VargheseAlbumin/Globulin [Mass ratio]1.2 {ratio}NormalThe [facility] HealthComment on above:Performed By: #### LIVER #### [facility] [address] [place] [address] Dr. Anamika Simon [Catalytic activity/Vol]117 U/LCritically smpw47-029Aud [facility]c HealthComment on above:Performed By: #### LIVER #### [facility] [address] [address] [address] Anamika Cook [Catalytic activity/Vol]30 U/YYfhzfn72-38Ihg [facility]c HealthComment on above:Performed By: #### LIVER #### [facility] [address] [address] [address] Anamika VargheseAST [Catalytic activity/Vol]25 U/WYsrkmr57-68Mvk [facility]c HealthComment on above:Performed By: #### LIVER #### [facility] [address] [address] [address] Anamika TorresI, CONJUGATED0.2 mg/dLNormal0.0-0.2The [facility] Comment on above:Performed By: #### LIVER #### [facility] [address] [address] [address] Anamika Torresirubin [Mass/Vol]0.4 mg/dLNormal0.2-1.0[facility] Comment on above:Performed By: #### LIVER #### [facility] [address] [address] [address] Anamika VargheseGlobulin (S) [Mass/Vol]3.0 g/dLNormalThe Uc HealthComment on above:Performed By: #### LIVER #### [facility] [address] [address] [address] Anamika VargheseProtein [Mass/Vol]6.5 g/dLNormal6.4-8.2The [facility] Comment on above:Performed By: #### LIVER #### [facility] [address] [address] [address] Anamika VargheseRETICULOCYTEon 08-61-3534UTPIZ9.27 %Critically high0.60-3.10The Uc HealthComment on above:Performed By: #### FETIBC, FERR, B12FOL #### [facility] [address] [address] [address] Anamika Conley B12 AND FOLATEon 94-87-0985Bozvgokqf (Vitamin B12) [Mass/Vol] 206.0 pg/mLOtgafr710.0-986.0The [facility]c HealthComment on above:Performed By: #### FETIBC, FERR, B12FOL #### [facility] [address] [address] [address] Anamika VargheseFOLATE20.20 ng/mLNormal8.60-58.90The Uc HealthComment on above:Performed By: #### FETIBC, FERR, B12FOL #### [facility] [address] [place], [place] [address] Dr. Anamika VargheseBasophils Auto (Bld) [#/Vol]Ordered By: Vinay Matta on 43-73-8939Avyvkdimx (Bld) [#/Vol]0.0 10*3/uL0.0-0.2FTrinity Health System East CampusBasophils/100 WBC Auto (Bld)Ordered By: Vinay Bunting on 05-21-2022 Basophils/100 WBC (Bld)0.4 %.[facility] CenterBlood hemoglobin measurement (mass/volume)Ordered By: Vinay Matta on 22-42-1131Sxuzmfzmrd (Bld) [Mass/Vol]9.7 g/dL11.8-15.4FTrinity Health System East CampusBlood leukocytes automated count (number/volume)Ordered By: Vinay Escalerating on 82-57-6415AXV (Bld) [#/Vol]3.7 10*3/uL4.5-11.0[facility] Body fluid albumin measurement (mass/volume)Ordered By: Vinay Matta on 03-31-9569Roexwnd (Body fld) [Mass/Vol]3.3 g/dL3.2-5.5FTrinity Health System East CampusCholesterol [Mass/volume] in Serum or PlasmaOrdered By: Vinay Bunting on 02-97-5830Vghbpvlfklt [Mass/Vol]122 mg/mO958-091XtxhmnoisPremier Health Atrium Medical CenterComment on above:Chol less than 200 mg/dl low risk Chol 201-239 mg/dl borderline risk Chol 240 mg/dl and greater high riskCholesterol in LDL Calc [Mass/Vol]Ordered By: Vinay Bunting on 17-26-3492Miqxxjtgqbs in LDL [Mass/Vol]67 mg/dL0-100 [facility] Medical CenterComment on above:LDL ATP III CLASSIFICATION LDL less than 100 mg/dL Optimal LDL 100-129 mg/dL Near or above optimal LDL 130-159 mg/dL Borderline high LDL 160-189 mg/dL High LDL greater than 189 mg/dL Very highCholesterol in VLDL Calc [Mass/Vol]Ordered By: Vinay Bunting on 19-51-2765Fwbxldgkznx in VLDL [Mass/Vol]13 mg/dLPremier Health Atrium Medical CenterCreatinine and Glomerular filtration rate.predicted panel (S/P/Bld)Ordered By: Vinay Bunting on 05-37-2952Dzfbqlhwos [Mass/Vol]1.15 mg/dL0.44-1.03[facility] Medical CenterEosinophils Auto (Bld) [#/Vol] Ordered By: Vinay Bunting on 13-22-1520Inutoqszuxd (Bld) [#/Vol]0.1 10*3/uL 0.0-0.45[facility] Medical CenterEosinophils/100 WBC Auto (Bld)Ordered By: Vinay Bunting on 42-53-7984Excacibfljv/100 WBC (Bld)3.1 %.[facility] Medical CenterErythrocyte distribution width Auto (RBC) [Ratio]Ordered By: Vinay Bunting on 99-60-1163Deqktuwbueg distribution width (RBC) [Ratio]16.3 %11.9-15.3FTrinity Health System East CampusErythrocyte sedimentation rate by Photometric methodOrdered By: Vinay Bunting on 88-71-5096LXA Photometric method (Bld) [Velocity]9 mm/hr0-29Prem[facility] Medical CenterEstimated glomerular filtration rate (GFR) non- AmericanOrdered By: Vinay Bunting on 81-67-9398IKS/1.73 sq M.predicted among non-blacks MDRD (S/P/Bld) [Vol rate/Area]46 mL/MinPremier Health Atrium Medical CenterGlobulin Calc (S) [Mass/Vol] Ordered By: Viany Bunting on 89-87-2725Hyvcmwrc (S) [Mass/Vol]2.2 g/dLPremier Health Atrium Medical CenterGlucose mean value [Mass/volume] in Blood Estimated from glycated hemoglobinOrdered By: Vinay Bunting on 62-61-0197Gvjgnbi glucose Estimated from glycated hemoglobin (Bld) [Mass/Vol]166 mg/dLPremier Health Atrium Medical CenterHematocrit Auto (Bld) [Volume fraction]Ordered By: Vinay Bunting on 45-73-7780Szgdbldebo (Bld) [Volume fraction]29.1 %34.0-46.4FTrinity Health System East CampusHemoglobin A1c percentageOrdered By: Vinay Bunting on 05-21-2022 HbA1c (Bld) [Mass fraction]7.4 %4.3-5.6FTrinity Health System East CampusComment on above:Increased risk for diabetes: 5.7 - 6.4 diabetes: >6.4 glycemic control for adults with diabetes: <7.0Laboratory - Hematology and Cell countsOrdered By: Vinay Bunting on 90-66-6177Bnjxbimif RBC/100 WBC (Bld) [Ratio]0.1 %0-0.5FTrinity Health System East CampusLymphocytes Auto (Bld) [#/Vol] Ordered By: Vinay Bunting on 51-94-1333Ahnwxnxzflg (Bld) [#/Vol]1.0 10*3/uL 1.00-4.8[facility] Medical CenterLymphocytes/100 WBC Auto (Bld)Ordered By: Vinay Bunting on 41-29-3771Bzkoksasiov/100 WBC (Bld)26.3 %.[facility] HospitalH Auto (RBC) [Entitic mass]Ordered By: Vinay Bunting on 01-55-4280WAU (RBC) [Entitic mass]28.6 pg24.7-34.3FTrinity Health System East CampusMCHC Auto (RBC) [Mass/Vol]Ordered By: Vinay Bunting on 53-06-5262KGDA (RBC) [Mass/Vol]33.5 g/dL32.0-35.0[facility] Medical CenterMCV Auto (RBC) [Entitic vol]Ordered By: Vinay Bunting on 65-79-0746AYT (RBC) [Entitic vol]85.5 tT89-636ZgpjdswtuPremier Health Atrium Medical CenterMonocytes Auto (Bld) [#/Vol] Ordered By: Vinay Bunting on 10-43-4006Ztximlqtx (Bld) [#/Vol]0.2 10*3/uL 0.0-0.8[facility] Medical CenterMonocytes/100 WBC Auto (Bld)Ordered By: Vinay Bunting on 16-27-2921Abskcoggw/100 WBC (Bld)6.4 %.[facility] Medical CenterNeutrophils Auto (Bld) [#/Vol]Ordered By: Vinay Bunting on 40-15-6982Tplrggtfrlf (Bld) [#/Vol]2.4 10*3/uL1.8-7.7FTrinity Health System East CampusNeutrophils/100 WBC Auto (Bld)Ordered By: Vinay Bunting on 05-21-2022 Neutrophils/100 WBC (Bld)63.8 %.[facility] CenterNo Panel InformationOrdered By: Vinay Bunting on 26-79-4795Maxbkytey GFR ()56 mL/MinPremier Health Atrium Medical CenterComment on above:GFR estimated reference range: According to KDOQI guidelines, <60 ml/min/1.73m2 is sufficient todiagnose a patient with chronic kidney disease.Pharmacy Creatinine Clearance (ChemN/[facility] HospitalPlatelet mean volume Auto (Bld) [Entitic vol]Ordered By: Vinay Bunting on 13-86-8475Bxkypvrk mean volume (Bld) [Entitic vol]7.3 fL6.3-10.7FTrinity Health System East CampusPlatelets Auto (Bld) [#/Vol]Ordered By: Vinay Bunting on 87-68-5620Odcckyoyl (Bld) [#/Vol]153 10*3/lR753-309MixixhiidPremier Health Atrium Medical CenterProtein [Mass/volume] in Serum or PlasmaOrdered By: Vinay Bunting on 49-79-2880Angulfo [Mass/Vol]5.5 g/dL6.1-7.9 [facility] Medical CenterRBC Auto (Bld) [#/Vol]Ordered By: Vinay Bunting on 71-97-4340UCX (Bld) [#/Vol]3.40 10*6/uL3.60-5.00[facility] Medical Centererum or plasma alanine aminotransferase measurement without P-5'-P (enzymatic activiOrdered By: Vinay Bunting on 61-84-1329PFZ No additional P-5'-P [Catalytic activity/Vol]28 U/P31-20BqefkkepyMercy Health St. Vincent Medical Centererum or plasma albumin/globulin mass ratioOrdered By: Vinay Bunting on 75-16-9416Toopbid/Globulin [Mass ratio]1.5 {ratio}[facility] Medical Centererum or plasma alkaline phosphatase measurement (enzymatic activity/volume)Ordered By: Vinay Bunting on 07-48-3259CAC [Catalytic activity/Vol]96 U/S00-29XjzfsfztpMercy Health St. Vincent Medical Centererum or plasma aspartate aminotransferase measurement (enzymatic activity/volume)Ordered By: Vinay Bunting on 97-87-4144JZB [Catalytic activity/Vol]30 U/M53-51FbpcgjgqeMercy Health St. Vincent Medical Centererum or plasma calcium measurement (mass/volume)Ordered By: Vinay Bunting on 92-13-4312Acoorco [Mass/Vol]8.5 mg/dL8.2-10.2FUniversity Hospitals Beachwood Medical Centererum or plasma chloride measurement (moles/volume) Ordered By: Vinay Bunting on 90-41-2467Zcczndls [Moles/Vol]102 mmol/L95-[address] [facility] Medical Centererum or plasma glucose measurement (mass/volume)Ordered By: Vinay Bunting on 91-31-0628Ejqlggn [Mass/Vol]167 mg/dL 70-100[facility] Medical CenterComment on above:ADA recommended reference range Random Glucose Reference Range is dependent on time and content of last meal. Glucose of more than 200 mg/dL in a nonstressed, ambulatory subject supports the diagnosis of Diabetes Mellitus.Serum or plasma high density lipoprotein (HDL) cholesterol measurementOrdered By: Vinay Matta on 60-21-6557Yudkhbkqkeu in HDL [Mass/Vol]41 mg/hY77-42GjqltyyffPremier Health Atrium Medical CenterComment on above:HDL CHOL ATP-III CLASSIFICATION Cardiovascular Risk HDL > or equal to 60 mg/dL LOW HDL < 40 mg/dL HIGHSerum or plasma potassium measurement (moles/volume)Ordered By: Vinay Bunting on 52-45-0739Jalnxowxj [Moles/Vol]4.5 mmol/L3.5-5.1FUniversity Hospitals Beachwood Medical Centererum or plasma rheumatoid factor measurement (units/volume)Ordered By: Vinay Matta on 84-31-4498Aimmkitofc factor Qn [IU]/mL<14.0[facility] Medical CenterComment on above:Performed at: - [facility] [id number] Cso: Darren Ashby PhD, Phone: [phone] or plasma sodium measurement (moles/volume)Ordered By: Vinay Matta on 02-48-5805Ejpcwm [Moles/Vol]140 mmol/M550-877QyluvfvcrMercy Health St. Vincent Medical Centererum or plasma total bilirubin measurement (mass/volume)Ordered By: Vinay Matta on 94-62-3203Qetfecbew [Mass/Vol]0.5 mg/dL0.3-1.2FTrinity Health System East Campus Serum or plasma total carbon dioxide measurement (moles/volume)Ordered By: Vinay Matta on 99-75-1528KB8 [Moles/Vol]27.2 mmol/L22.0-30.0[facility] Medical Centererum or plasma total cholesterol/high density lipoprotein (HDL) cholesterol mass ratOrdered By: Vinay Matta on 05-21-2022 Cholesterol.total/Cholesterol in HDL [Mass ratio]3.0 {ratio}<5.0[facility] Medical Centererum or plasma urea nitrogen measurement (mass/volume) Ordered By: Vinay Matta on 88-04-2075Pgjv nitrogen [Mass/Vol]24 mg/dL9-[address] [facility] Medical Centererum or plasma uric acid measurement (mass/volume)Ordered By: Vinay Matta on 53-65-4367Wfxyj [Mass/Vol]4.1 mg/dL 2.6-7.2FTrinity Health System East CampusTriglyceride [Mass/volume] in Serum or PlasmaOrdered By: Vinay Bunhomer on 76-95-7979Kicfysssofeg [Mass/Vol]68 mg/dL 35-149Prem[facility]rium Medical CenterComment on above:TRIG ATP III CLASSIFICATION TRIG less than 150 mg/dL Normal TRIG 150-199 mg/dL Borderline high TRIG 200-500 mg/dL High TRIG greater than 500 mg/dL Very high Standard traceable to the Center for Disease Conrtrol and Prevention (CDC) test method.Automated basophil %on 88-93-1373Rxbuounin/100 WBC (Bld)0.4 %[facility] CtrAutomated basophil counton 21-03-0951Hcyvltslv (Bld) [#/Vol] 0.0 10*3/uL0.0-0.2FDunlap Memorial Hospital CtrAutomated blood lymphocyte count (number/volume)on 84-03-1130Viokdlvycjp (Bld) [#/Vol]1.3 10*3/uL1.00-4.8 [facility] CtrAutomated blood lymphocyte count as percentage of total leukocyteson 05-96-8320Xyhfdcwpcce/100 WBC (Bld)19.5 %[facility] CtrAutomated blood monocyte counton 12-33-0985Tyaiujlnv (Bld) [#/Vol]0.3 10*3/uL0.0-0.8[facility] CtrAutomated blood platelet count (count/volume)on 96-33-2739Bozyomdhk (Bld) [#/Vol]158 10*3/gF671-913BwkhgykqhCleveland Clinic [facility] Hospital CtrAutomated blood platelet mean volume measurementon 02-66-7548Lplzjivm mean volume (Bld) [Entitic vol]7.2 fL6.3-10.7FDunlap Memorial Hospital CtrAutomated eosinophil %on 46-86-5282Byipzblniyc/100 WBC (Bld) 3.2 %[facility] CtrAutomated eosinophil counton 01-31-2021 Eosinophils (Bld) [#/Vol]0.2 10*3/uL0.0-0.45[facility] Automated erythrocyte distribution width ratioon 76-77-5830Dvuyljlqcob distribution width (RBC) [Ratio]16.8 %11.9-15.3FWil[facility] Automated erythrocyte mean corpuscular hemoglobin (mass per erythrocyte)on 59-02-9216TFB (RBC) [Entitic mass]29.[address].7[address] [facility] Automated erythrocyte mean corpuscular hemoglobin concentration measurement (mass/volon 30-49-8232NWOF (RBC) [Mass/Vol]33.9 g/dL32.0-35.0[facility] CtrAutomated erythrocyte mean corpuscular volumeon 64-67-5911TLE (RBC) [Entitic vol]86.6 nE53-963FuztxntpbC[facility] Clinic [facility] CtrAutomated erythrocytes count in urine sediment (number/area)on 12-45-4541CTF Auto (Urine sed) [#/Area] 0-1 [HPF][facility] CtrAutomated leukocytes count in urine sediment (number/area)on 34-78-4314KCA Auto (Urine sed) [#/Area]3-4 [HPF] [facility] CtrAutomated monocyte %on 69-60-6672Ncxbyager/100 WBC (Bld)5.0 %[facility] CtrAutomated neutrophil %on 01-31-2021 Neutrophils/100 WBC (Bld)71.9 %[facility] CtrAutomated urine color determinationon 82-61-7896Wxkcf (U)YellowYellowC[facility] CtrBlood erythrocytes automated count (number/volume)on 89-45-7587CGM (Bld) [#/Vol]4.01 10*6/uL3.60-5.00[facility] CtrBlood hemoglobin measurement (mass/volume)on 07-62-0304Tbtkaitnca (Bld) [Mass/Vol]11.8 g/dL 11.8-15.4FDunlap Memorial Hospital CtrBlood leukocytes automated count (number/volume)on 67-26-2249KJM (Bld) [#/Vol]6.7 10*3/uL4.5-11.0[facility] CtrBlood neutrophil count by automated method (number/volume)on 13-29-4789Mmydfzhkapx (Bld) [#/Vol]4.8 10*3/uL1.8-7.7FDunlap Memorial Hospital CtrBody fluid albumin measurement (mass/volume)on 56-13-3485Hlzfwjf (Body fld) [Mass/Vol]3.7 g/dL3.2-5.5FDunlap Memorial Hospital CtrCholesterol [Mass/volume] in Serum or Plasmaon 56-99-6895Umlldqmhpwl [Mass/Vol]129 mg/gT348-085QuuaexhjtC[facility] Clinic Luther[facility] Hospital CtrComment on above:Chol less than 200 mg/dl low riskChol 201- 239 mg/dl borderline riskChol 240 mg/dl and greater high riskCholesterol in LDL [Mass/volume] in Serum or Plasma by calculationon 38-65-2494Lldyxxpfzgc in LDL [Mass/Vol]63 mg/dL0-100[facility] CtrComment on above:LDL ATP III CLASSIFICATIONLDL less than 100 mg/dL OptimalLDL 100-129 mg/dL Near or above quniybcVMD433-786 mg/dL Borderline highLDL 160-189 mg/dL HighLDL greater than 189 mg/dL Very highCholesterol in VLDL [Mass/volume] in Serum or Plasma by calculationon 18-05-0969Tcsiyorsiim in VLDL [Mass/Vol]22 mg/dLCleveland Clinic Luther[facility] Hospital CtrCreatinine [Mass/volume] in Urineon 67-42-1969Uzhsdqhsse (U) [Mass/Vol]127.7 mg/dLCleveland Clinic Luther[facility] Hospital CtrComment on above:No reference range establishedEstimated glomerular filtration rate (GFR) non- Americanon 96-10-6676CTA/1.73 sq M predicted among non-blacks MDRD (S/P/Bld) [Vol rate/Area]45 mL/min/{1.73_m2}[facility] CtrGlucose mean value [Mass/volume] in Blood Estimated from glycated hemoglobinon 01-31-2021 Average glucose Estimated from glycated hemoglobin mass conc (Bld)174 mg/dL [facility] CtrHematocrit [Volume Fraction] of Blood by Automated counton 22-06-9577Bivrpwjdyw (Bld) [Volume fraction]34.7 %34.0-46.4FDunlap Memorial Hospital CtrHemoglobin A1c percentageon 11-16-3312GuJ9r (Bld) [Mass fraction]7.7 %4.3-5.6FDunlap Memorial Hospital CtrComment on above:Increased risk for diabetes: 5.7 - 6.4diabetes: >6.4glycemic control for adults with diabetes: <7.0Otheron 20-94-0501EBZ/1.73 sq M.predicted MDRD (S/P/Bld) [Vol rate/Area]55 mL/min/{1.73_m2}[facility] CtrComment on above:GFR estimated reference range: According to KDOQI guidelines, <60 ml/min/1.73m2 is sufficient todiagnose a patient with chronic kidney disease.Nucleated RBC/100 WBC (Bld) [Ratio]0.2 %0-0.5FDunlap Memorial Hospital CtrPharmacy Creatinine Clearance (ChemN/AFDunlap Memorial Hospital CtrProtein [Mass/volume] in Serum or Plasmaon 18-28-1872Trthuid [Mass/Vol]6.2 g/dL6.1-7.9[facility] CtrSerum globulin measurement by calculation (mass/volume)on 01-31-2021 Globulin (S) [Mass/Vol]2.5 g/dLUc West Chester HospitalSerum or plasma alanine aminotransferase measurement without P-5'-P (enzymatic activion 11-09-3910EPS No additional P-5'-P [Catalytic activity/Vol]47 U/Z37-78CmmtrkrcvCleveland Clinic Luther[facility] Hospital CtrSerum or plasma albumin/globulin mass ratioon 01-31-2021 Albumin/Globulin [Mass ratio]1.5 {ratio}[facility] CtrSerum or plasma alkaline phosphatase measurement (enzymatic activity/volume)on 01-31-2021 ALP [Catalytic activity/Vol]90 U/K79-58CmzxqnmeiCleveland Clinic Luther[facility] Hospital CtrSerum or plasma aspartate aminotransferase measurement (enzymatic activity/volume)on 79-22-3699PRU [Catalytic activity/Vol]69 U/G28-65NmizdywmeUc [facility] Hospital Serum or plasma calcium measurement (mass/volume)on 58-35-8498Ycgscbr [Mass/Vol] 8.4 mg/dL8.2-10.2FDunlap Memorial Hospital CtrSerum or plasma chloride measurement (moles/volume)on 98-67-0856Xmvvgvxe [Moles/Vol]100 mmol/L95-114 [facility] CtrSerum or plasma creatinine measurement with calculation of estimated glomerular filtron 66-74-3841Gtcgzdwqey [Mass/Vol]1.17 mg/dL0.44-1.03[facility] CtrSerum or plasma glucose measurement (mass/volume)on 57-17-5211Lidiodw [Mass/Vol]157 mg/wT39-632IwiopgfsxCleveland Clinic Lutheran Hospital CtrComment on above:ADA recommended reference rangeRandom Glucose Reference Range is dependent on time and content of last meal. Glucose of more than 200 mg/dL in a nonstressed, ambulatory subject supports the diagnosisof Diabetes Mellitus.Serum or plasma high density lipoprotein (HDL) cholesterol measurementon 51-35-9578Ckqzdecczkz in HDL [Mass/Vol]43 mg/pP65-19TsuapcrocCleveland Clinic Luther[facility] Hospital CtrComment on above:HDL CHOL ATP-III CLASSIFICATION Cardiovascular RiskHDL > or equal to 60 mg/dL LOWHDL < 40 mg/dL HIGHSerum or plasma potassium measurement (moles/volume)on 19-44-6520Qnmnjodfy [Moles/Vol]3.5 mmol/L3.5-5.1FDunlap Memorial Hospital CtrSerum or plasma sodium measurement (moles/volume)on 04-18-5459Phzyty [Moles/Vol]140 mmol/A246-484BlnajdugrCleveland Clinic Luther[facility] Hospital CtrSerum or plasma total bilirubin measurement (mass/volume)on 99-56-3636Obhyowswb [Mass/Vol]0.9 mg/dL0.3-1.2FWilson [address] Hospital Serum or plasma total carbon dioxide measurement (moles/volume)on 93-40-8237HW1 [Moles/Vol]26.2 mmol/L22.0-30.0[facility] CtrSerum or plasma total cholesterol/high density lipoprotein (HDL) cholesterol mass dulce maria 27-35-6783Ockwctfjwbm.total/Cholesterol in HDL [Mass ratio]3.0 {ratio}[facility] CtrSerum or plasma urea nitrogen measurement (mass/volume)on 41-25-4498Figj nitrogen [Mass/Vol]23 mg/dL9-23[facility] Specific gravity of Urine by Automated test stripon 06-65-3590Dpavteyl gravity (U) [Rel density]1.0201.001-1.030[facility] CtrSquamous epithelial cells detection in urine sediment by light microscopyon 01-31-2021 Epithelial cells.squamous LM Ql (Urine sed)10-19 [HPF][facility] CtrTriglyceride [Mass/volume] in Serum or Plasmaon 67-53-2721Bzpfvkslxdrz [Mass/Vol]114 mg/cC27-032IamxmolsjCleveland Clinic [facility] Hospital CtrComment on above:TRIG ATP III CLASSIFICATIONTRIG less than 150 mg/dL NormalTRIG 150-199 mg/dL Borderline highTRIG 200-500 mg/dL High TRIG greater than 500 mg/dL Very highStandard traceable to the Center for Disease Conrtrol and Prevention (CDC) test method. Urinalysison 78-14-6426Tzhalro casts LM Ql (Urine sed)0-8 [LPF][facility] CtrUrine bacteria detection by automated methodon 01-31-2021 Bacteria Auto Ql (U)None seenNone SeenCleveland Clinic Lutheran Hospital CtrUrine clarity by refractometry automatedon 71-62-4544Xbedffr Refractometry automated (U)ClearCleWood County HospitalUrine glucose measurement by automated test strip (mass/volume)on 59-19-7419Rewxexd Auto test strip (U) [Mass/Vol]Normal mg/dLNormalUc West Chester HospitalUrine hemoglobin detection by automated test stripon 67-35-2914Abruxvgpwy Auto test strip Ql (U) NegativeNegativeUc West Chester HospitalUrine ketones measurement by automated test strip (mass/volume)on 54-63-4019Irtxdjl (U) [Mass/Vol]Negative NegativeUc West Chester HospitalUrine leukocyte esterase detection by automated test stripon 77-40-4423Wrevrwvyh esterase Auto test strip Ql (U)1+ NegativeUc West Chester HospitalUrine microalbumin measurement with detection limit of 20 mg/L or less (mass/volume)on 48-32-0406Qbxusbu DL <= 20 mg/L (U) [Mass/Vol]0.9 mg/dL0.0-1.8[facility] HospitalUrine microalbumin/creatinine mass ratioon 63-90-5471Juhvclr/Creatinine DL <= 20 mg/L (U) [Mass ratio]7.0 mg/g0.0-30.0[facility] CtrComment on above: 30-300 mg/g indicates an increased risk for diabetic nephropathy. Greater than 300 mg/g is consistent with clinical nephropathy. (Am. J. Kidney Disease 1995, 25:107)Urine nitrite detection by test stripon 93-00-5424Dfzvgdc Ql (U)Negative NegativeCleveland Clinic Lutheran Hospital CtrUrine pH measurement by automated test stripon 36-99-4257qS (U)5.0 [pH]5.0-9.0[facility] CtrUrine protein measurement by automated test strip (mass/volume)on 68-72-4714Bvkrosz (U) [Mass/Vol]Trace mg/dLNegativeUc West Chester HospitalUrine total bilirubin detection by test stripon 95-00-6105Epbsdgwqy Ql (U)NegativeNegative [facility] CtrUrine urobilinogen measurement by automated test strip (mass/volume)on 84-86-9059Srpihtpfdowf (U) [Mass/Vol]Normal mg/dLNormal [facility] Vital Signs Date TimeVital SignValuePerforming FoyunpdumRvzwfqck84-92-0514 09:14-0400Body aaeanc854.75 kgDarrin Bunting DO Work Phone: [phone] [place], [place] 6607509-08-2025 09:14-0400 Diastolic blood eqrluhys23 mm[Hg]Vinay Bunting DO Work Phone: [phone] [place], [place] 6607509-08-2025 09:14-0400 Heart rate76 /minDarrin Bunting DO Work Phone: [phone]09-08-2025 09:14-0400 SaO2% (BldA) [Mass fraction]96 %Vinay Bunting DO Work Phone: [phone] [place], [place] 6607009-08-2025 09:14-0400 Systolic blood memojhbb248 mm[Hg]Vinay Bunting DO Work Phone: [phone] [place], [place] 6607008-20-2025 09:46-0400 Body .48 cmDarrin Bunting DO Work Phone: [phone]08-20-2025 09:46-0400 Body mass index (BMI) [Ratio]40.2 kg/y5Rioqeo Bunting DO Work Phone: [phone]08-20-2025 09:46-0400 Body rnwnfaorqud71.3 [degF]Vinay Bunting DO Work Phone: [facility]08-20-2025 09:46-0400 Body eqoihf36.9 kgDarrin Bunting DO Work Phone: [phone]08-20-2025 09:46-0400 Diastolic blood izqdsnbi01 mm[Hg]Vinay Bunting DO Work Phone: [phone]08-20-2025 09:46-0400 Heart rate81 /minDarrin Bunting DO Work Phone: [phone] [place], [place] 5603108-20-2025 09:46-0400 Respiratory rate18 /minDarrin Bunting DO Work Phone: [phone]08-20-2025 09:46-0400 SaO2% (BldA) [Mass fraction]96 %Vinay Bunting DO Work Phone: [phone] [place], [place] 6607008-20-2025 09:46-0400 Systolic blood ergyxlnj278 mm[Hg]Vinay Bunting DO Work Phone: [phone]06-10-2025 10:47-0400 Body jcegfg557 cmMindy Cyrus PA-C Work Phone: [facility]06-10-2025 10:47-0400Body mass index (BMI) [Ratio]40.42 kg/a8Eojkf Cyrus PA-C Work Phone: [facility]06-10-2025 10:47-0400Body temperature 97.9 [degF]Daksha Cyrus PA-C Work Phone: [facility]06-10-2025 10:47-0400Body .9 kgMindy Cyrus PA-C Work Phone: [facility]06-10-2025 10:47-0400Diastolic blood mkelrvit60 mm[Hg]Daksha Cyrus PA-C Work Phone: [facility]06-10-2025 10:47-0400Heart rate84 /min Daksha Kanger PA-C Work Phone: [facility]06-10-2025 10:47-0400Respiratory rate 18 /minDaksha Kanger PA-C Work Phone: [facility]06-10-2025 10:47-3086NtS1% (BldA) [Mass fraction]94 %Daksha Kanger PA-C Work Phone: [facility]06-10-2025 10:47-0400Systolic blood kopgdsfk737 mm[Hg]Daksha Kanger PA-C Work Phone: [facility]05-15-2025 09:45-0400Blood Pressure LocationVerónica Ugarte [phone]-YexsjLima [facility]05-15-2025 09:45-0400Diastolic blood hhgpdeis16 mm[Hg]Verónica Ugarte [phone]-NphmuLima Memorial Hospital05-15-2025 09:45-0400Heart rate67 /minVerónica Ugarte [phone]-PziveLima Memorial Hospital05-15-2025 09:45-0400Systolic blood swdtrzvu124 mm[Hg]Verónica Ugarte [phone]-JznulLima [facility] Hospital04-21-2025 09:47-0400Body jahndf419.9 cmAngela Lowe PA Work Phone: no[facility] CenterXyxgydlfjt98-08-3387 09:47-0400Body mass index (BMI) [Ratio]41 kg/k6Bojnlr Lowe PA Work Phone: no[facility] CenterHkmxxdfrhr64-76-9800 09:47-0400Body ibeffx03.43 kgAngela Lowe PA Work Phone: no[facility] CenterRgbtqimjqd32-90-7272 09:47-0400Diastolic blood htbehlvf89 mm[Hg]Tammy Lowe PA Work Phone: no[facility] CenterCvsetytzvu98-51-7486 09:47-0400Systolic blood mm[Hg]Tammy Lowe PA Work Phone: no[facility] CenterXhumgakeuo72-86-3302 14:14-0500Body mass index (BMI) [Ratio]38.7 kg/o0Qqngw Cyrus PA-C Work Phone: [facility]02-21-2025 14:14-0500Body temperature 97.81 [degF]Daksha Cyrus PA-C Work Phone: [facility]02-21-2025 14:14-0500Body rcposf49.6 kgMindy Cyrus PA-C Work Phone: [facility]02-21-2025 14:14-0500Diastolic blood mm[Hg]Daksha Cyrus PA-C Work Phone: [facility]02-21-2025 14:14-0500Heart rate80 /min Daksha Cyrus PA-C Work Phone: [facility]02-21-2025 14:14-0500Respiratory rate 18 /minMindy Cyrus PA-C Work Phone: [facility]02-21-2025 14:14-9136AgH7% (BldA) [Mass fraction]97 %Daksha Cyrus PA-C Work Phone: [facility]02-21-2025 14:14-0500Systolic blood pthlbuzr423 mm[Hg]Daksha Cyrus PA-C Work Phone: [facility]02-18-2025 09:44-0500Body tuqwyn943.9 cmAcorie Lowe PA Work Phone: no[facility] CenterToyiunuboa03-83-1379 09:44-0500Body mass index (BMI) [Ratio]40.06 kg/f5Yxfbud Lowe PA Work Phone: no[facility] CenterOiyejkkvbo88-75-7688 09:44-0500Body haprry62.16 kgTammy Neffe PA Work Phone: [facility]xgnyvdqjv78-34-8912 09:44-0500Diastolic blood eisrvrby84 mm[Hg]Tammy Neffe PA Work Phone: [facility]Cqfmljignl34-17-0628 09:44-0500Systolic blood behrnjyj761 mm[Hg]Tammy Neffe PA Work Phone: [facility]Hvcfoawqik60-14-8680 14:16-0500Body emxkue442.48 cmDarrin Bunting DO Work Phone: 1(907)[address]02-11-2025 14:16-0500 Body mass index (BMI) [Ratio]38.9 kg/k9Mherxt Bunting DO Work Phone: 1(883)[address] [place], [place] 6607502-11-2025 14:16-0500 Body tyxengvjsgb56.5 [degF]Vinay Bunting DO Work Phone: 1(694)[address] [place], [place] 6607502-11-2025 14:16-0500 Body wnyfaf42.67 kgDarrin Bunting DO Work Phone: 1(804)[address] [place], [place] 6607502-11-2025 14:16-0500 Diastolic blood mapjuqyg77 mm[Hg]Vinay Bunting DO Work Phone: 1(799)[address] [place], [place] 6607502-11-2025 14:16-0500 Heart rate80 /minDarrin Bunting DO Work Phone: 1(906)1-[address] [place], [place] 6607002-11-2025 14:16-0500 Respiratory rate18 /minDarrin Bunting DO Work Phone: 1(839)1-[address] [place], [place] 6607002-11-2025 14:16-0500 SaO2% (BldA) [Mass fraction]98 %Vinay Bunting DO Work Phone: 1(545)[address]02-11-2025 14:16-0500 Systolic blood zxszzbya760 mm[Hg]Vinay Bunting DO Work Phone: 1(582)[address] [place], [place] 6607512-30-2024 13:10-0500 Body fozhdc486.48 cmDarrin Bunting DO Work Phone: 1(208)461-[address] [place], [place] 6607012-30-2024 13:10-0500 Body mass index (BMI) [Ratio]38.4 kg/l5Okjlyi Bunting DO Work Phone: 0(847)486-[address] [place], [place] 6607012-30-2024 13:10-0500 Body yuvyll21.25 kgDarrin Bunting DO Work Phone: 1(664)734-[address] [place], [place] 6607012-30-2024 13:10-0500 Diastolic blood mm[Hg]Vinay Bunting DO Work Phone: 3(823)[address]2024 13:10-0500 Heart rate85 /minDarrin Bunting DO Work Phone: 4(139)[address] [place], [place] 5603112-30-2024 13:10-0500 SaO2% (BldA) [Mass fraction]95 %Vinay Bunting DO Work Phone: 9(362)098-[address] [place], [place] 6607012-30-2024 13:10-0500 Systolic blood pocfkxel393 mm[Hg]Vinay Bunting DO Work Phone: 6(792)540-[address] [place], [place] 6607011-22-2024 14:42-0500 Body yyqctg058 cmMindy Cyrus PA-C Work Phone: [facility]11-22-2024 14:42-0500Body mass index (BMI) [Ratio]38.74 kg/z8Wpuhs Cyrus PA-C Work Phone: [facility]11-22-2024 14:42-0500Body temperature 97.11 [degF]Daksha Cyrus PA-C Work Phone: [facility]11-22-2024 14:42-0500Body lnctzi13.7 kgMindy Cyrus PA-C Work Phone: [facility]11-22-2024 14:42-0500Diastolic blood vwacctzg19 mm[Hg]Daksha Cyrus PA-C Work Phone: [facility]11-22-2024 14:42-0500Heart rate81 /min Daksha Kanger PA-C Work Phone: [facility]11-22-2024 14:42-0500Respiratory rate 18 /minDaksha Kanger PA-C Work Phone: [facility]11-22-2024 14:42-9100UeU0% (BldA) [Mass fraction]95 %Daksha Kanger PA-C Work Phone: [facility]11-22-2024 14:42-0500Systolic blood vixqtxxz167 mm[Hg]Daksha Kanger PA-C Work Phone: [facility]11-14-2024 09:18-0500Blood Pressure LocationVerónica Ugarte [phone]-KnkuzLima [facility] Hospital11-14-2024 09:18-0500Diastolic blood ajwfqgbc37 mm[Hg]Verónica Ugarte [phone]-WisrzLima Memorial Hospital11-14-2024 09:18-0500Heart rate74 /minVerónica Ugarte [phone]-VpaekLima Memorial Hospital11-14-2024 09:18-0500Systolic blood mm[Hg]Verónica Ugarte [phone]-RxktaLima Memorial Hospital10-01-2024 08:51-0400Body aqpcpf690.9 cmQueta Prieto DIVISION HEAD Work Phone: no[facility] CenterFvszxiqlxt04-97-9014 08:51-0400Body mass index (BMI) [Ratio]39.49 kg/u7VtdnfcpQueta Prieto DIVISION HEAD Work Phone: no[facility] CenterBdgrlfqoul14-35-8847 08:51-0400Body .8 kg Queta Prieto DIVISION HEAD Work Phone: 1(419)483-[address] [place], [place] [address]Eqwivihnbt23-65-4807 08:51-0400Diastolic blood mdskabwp25 mm[Hg]Queta Prieto DIVISION HEAD Work Phone: [facility]Duovqytvuc35-69-2170 08:51-0400Heart rate77 /min Queta Prieto DIVISION HEAD Work Phone: [facility] SouthObeepvoxmd22-40-0838 08:51-0400Systolic blood deteujie775 mm[Hg]Queta Prieto DIVISION HEAD Work Phone: [facility] SouthSoclliipik98-59-3382 12:08-0400Body temperature 97.5 [degF]DO Vinay Bunting Work Phone: 1(812)[address] [place], [place] 6607509-06-2024 12:08-0400 Diastolic blood oqjphzhf95 mm[Hg]DO Vinay Bunting Work Phone: 1(790)[address] [place], [place] 6607509-06-2024 12:08-0400 Heart rate64 /minDO Vinay Bunting Work Phone: 1(641)[address] [place], [place] 6607509-06-2024 12:08-0400 Respiratory rate18 /minDO Vinay Bunting Work Phone: 1(783)[address] [place], [place] 6607509-06-2024 12:08-0400 SaO2% (BldA) [Mass fraction]98 %DO Vinay Bunting Work Phone: 1(236)[address] [place], [place] 6607509-06-2024 12:08-0400 Systolic blood foxlbryh016 mm[Hg]DO Vinay Bunting Work Phone: 1(760)[address] [place], [place] 6607509-06-2024 05:18-0400 Body hnkyko69.2 kgDO Vinay Bunting Work Phone: 1(222)[address]09-05-2024 15:32-0400 Body stxtry745.56 cmDO Vinay Bunting Work Phone: 1(717)[address]09-05-2024 14:00-0400 Diastolic blood zarkpiwe62 mm[Hg]DO Vinay Bunting Work Phone: 1(168)401-[address] [place], [place] 6607009-05-2024 14:00-0400 Heart rate76 /minDO Vinay Bunting Work Phone: 1(121)[address]09-05-2024 14:00-0400 Respiratory rate18 /minDO Vinay Bunting Work Phone: 1(501)[address] [place], [place] 6607509-05-2024 14:00-0400 SaO2% (BldA) [Mass fraction]98 %DO Vinay Bunting Work Phone: 1(529)[address] [place], [place] 6607509-05-2024 14:00-0400 Systolic blood xswybicd959 mm[Hg]DO Vinay Bunting Work Phone: 1(692)[address] [place], [place] 6607509-05-2024 12:53-0400 Body .7 [degF]DO Vinay Bunting Work Phone: 1(467)[address] [place], [place] 6607509-05-2024 09:57-0400 Body ymurjs362.56 cmDO Vinay Bunting Work Phone: 1(279)[address] [place], [place] 6607509-05-2024 09:57-0400 Body flqrui30.34 kgDO Vinay Bunting Work Phone: 1(687)[address]08-30-2024 14:21-0400 Body mass index (BMI) [Ratio]37.85 kg/b9Bfnfj Cyrus PA-C Work Phone: [facility]08-30-2024 14:21-0400Body temperature 97.39 [degF]Daksha Cyrus PA-C Work Phone: [facility]08-30-2024 14:21-0400Body uqzuqp00.5 kgMindy Cyrus PA-C Work Phone: [facility]08-30-2024 14:21-0400Diastolic blood tudzcryj58 mm[Hg]Daksha Cyrus PA-C Work Phone: [facility]08-30-2024 14:21-0400Heart rate81 /min Daksha Cyrus PA-C Work Phone: [facility]08-30-2024 14:21-0400Respiratory rate 18 /minDaksha Kanger PA-C Work Phone: [facility]08-30-2024 14:21-4548HtE9% (BldA) [Mass fraction]96 %Daksha Kanger PA-C Work Phone: [facility]08-30-2024 14:21-0400Systolic blood zeuxyrer474 mm[Hg]Dakhsa Kanger PA-C Work Phone: [facility]08-19-2024 15:30-0400Body hygvyv719.56 cmDO Vinay Bunting Work Phone: 2([phone])659[facility]80[facility]08-19-2024 15:30-0400 Body mass index (BMI) [Ratio]36.2 kg/m2DO Vinay Bunting Work Phone: [facility]08-19-2024 15:30-0400 Body ohzgesxkopa92 [degF]DO Vinay Bunting Work Phone: 3(099)146[facility]52[facility]08-19-2024 15:30-0400 Body ajlvkp53.76 kgDO Vinay Bunting Work Phone: 8(112)518[facility]49[facility]08-19-2024 15:30-0400 Diastolic blood jvzchezd08 mm[Hg]DO Vinay Bunting Work Phone: [facility]08-19-2024 15:30-0400 Heart rate83 /minDO Vinay Bunting Work Phone: 3([phone])782-45[facility]08-19-2024 15:30-0400 Respiratory rate18 /minDO Vinay Bunting Work Phone: 1(580)[phone]08-19-2024 15:30-0400 SaO2% (BldA) [Mass fraction]97 %DO Vinay Bunting Work Phone: 6(855)229-49[facility]08-19-2024 15:30-0400 Systolic blood inyfiymn222 mm[Hg]DO Vinay Bunting Work Phone: 1(349)[address] [place], [place] 6607506-26-2024 11:41-0400 Body donibp860.56 cmDO Vinay Bunting Work Phone: 1(037)[address] [place], [place] 6607506-26-2024 11:41-0400 Body mass index (BMI) [Ratio]35.7 kg/m2DO Vinay Bunting Work Phone: 1(923)[address] [place], [place] 6607506-26-2024 11:41-0400 Body sypirjcsadh21.4 [degF]DO Vinay Bunting Work Phone: 1(151)[address] [place], [place] 6607506-26-2024 11:41-0400 Body mqvtab18.4 kgDO Vinay Bunting Work Phone: 1(148)[address] [place], [place] 6607506-26-2024 11:41-0400 Diastolic blood wpxleplq92 mm[Hg]DO Vinay Bunting Work Phone: 1(870)[address] [place], [place] 6607506-26-2024 11:41-0400 Heart rate88 /minDO Vinay Bunting Work Phone: 4(148)[address] [place], [place] 6607506-26-2024 11:41-0400 Respiratory rate16 /minDO Vinay Bunting Work Phone: 6(427)[address] [place], [place] 6607506-26-2024 11:41-0400 SaO2% (BldA) [Mass fraction]96 %DO Vinay Bunting Work Phone: 1(968)[address] [place], [place] 6607506-26-2024 11:41-0400 Systolic blood eympttsw668 mm[Hg]DO Vinay Bunting Work Phone: 1(914)[address] [place], [place] 6607505-31-2024 14:07-0400 Body sltajl299 Rodney Flores APRN.MANAGER [employer]PLICATIONS Work Phone: [facility]05-31-2024 14:07-0400Body mass index (BMI) [Ratio]39.1 kg/j6Wjuli Gross LOCKET MAKER.MANAGER [employer]ICAL APPLICATIONS Work Phone: [facility]05-31-2024 14:07-0400Body temperature 97 [degF]Shana Mark LOCKET MAKER.MANAGER [employer]ICAL [employer]PLICATIONS Work Phone: [facility]05-31-2024 14:07-0400Body hzvrxi75.6 kgShana Flores LOCKET MAKER.MANAGER [employer]INICAL APPLICATIONS Work Phone: [facility]05-31-2024 14:07-0400Diastolic blood kodnljsk19 mm[Hg]Shana Mark LOCKET MAKER.MANAGER [employer] APPLICATIONS Work Phone: [facility]05-31-2024 14:07-0400Heart rate89 /min Shana Mark LOCKET MAKER.MANAGER [employer]PLICATIONS Work Phone: [facility]05-31-2024 14:07-0400Respiratory rate 16 /minErrichard Mark LOCKET MAKER.MANAGER CLINICAL APPLICATIONS Work Phone: [facility]05-31-2024 14:07-7008IqS3% (BldA) [Mass fraction]95 %Shana Mark LOCKET MAKER.MANAGER [employer]INICAL APPLICATIONS Work Phone: [facility]05-31-2024 14:07-0400Systolic blood mm[Hg]Shana Flores LOCKET MAKER.MANAGER [employer]ICAL APPLICATIONS Work Phone: [facility]05-13-2024 11:48-0400Blood Pressure Arely Ugarte [phone]-NfnchLima [facility] Hospital05-13-2024 11:48-0400Diastolic blood epiobkpz98 mm[Hg]Verónica Ugarte [phone]-RftuuLima [facility] Hospital05-13-2024 11:48-0400Heart rate80 /minVerónica Ugarte [phone]-DkwdwLima [facility] Hospital05-13-2024 11:48-0400Respiratory rate16 /minVerónica Ugarte [phone]-NrpzwL[facility] Hospital05-13-2024 11:48-0400Systolic blood mm[Hg]Verónica Ugarte [phone]-SrgwrLima Memorial Hospital04-11-2024 10:03-0400Body cheodhltgxe99.7 [degF]Chair Abhishek Work Phone: [facility]04-11-2024 10:03-0400Diastolic blood ixemcpfz08 mm[Hg]Chair Abhishek Work Phone: [facility]04-11-2024 10:03-0400Heart rate82 /min Chair Abhishek Work Phone: [place] [address]-11-2024 10:03-0400Respiratory rate 16 /minChair Abhishek Work Phone: [facility]04-11-2024 10:03-7538TeO2% (BldA) [Mass fraction]97 %Chair Abhishek Work Phone: [facility]04-11-2024 10:03-0400Systolic blood mm[Hg]Chair Abhishek Work Phone: [facility]03-15-2024 10:17-0400Body cm Daksha Cyrus PA-C Work Phone: [facility]03-15-2024 10:17-0400Body temperature 98.2 [degF]Daksha Cyrus PA-C Work Phone: [place] [address]-15-2024 10:17-0400Body xvvozd57 kg Daksha Cyrus PA-C Work Phone: [place] [address]-15-2024 10:17-0400Diastolic blood ktzpbbjo86 mm[Hg]Daksha Cyrus PA-C Work Phone: [place] [address]-15-2024 10:17-0400Heart rate93 /min Daksha Cyrus PA-C Work Phone: [place] [address]-15-2024 10:17-0400Respiratory rate 16 /minMindy Cyrus PA-C Work Phone: [facility]03-15-2024 10:17-6455UjD4% (BldA) [Mass fraction]95 %Daksha Bridges PA-C Work Phone: [facility]03-15-2024 10:17-0400Systolic blood fdzmorrq811 mm[Hg]Daksha Bridges PA-C Work Phone: [facility]01-22-2024 09:08-0500Blood Pressure LocationBeth Ruth [phone]-XfjujLima [facility] Hospital01-22-2024 09:08-0500Body tjjjnhosmem72.8 [degF]Nisa Shepherd [phone]-WluuvLima Memorial Hospital01-22-2024 09:08-0500Diastolic blood morgwpdl38 mm[Hg]Nisa Shepherd [phone]-XekqnL[facility] Hospital01-22-2024 09:08-0500Heart rate92 /minBeth Ruth [phone]-VdyjbL[facility] Hospital01-22-2024 09:08-0500Systolic blood sawjejck259 mm[Hg]Nisa Shepherd [phone]-BxvroLima [facility] Hospital12-05-2023 10:30-0500Body gwauai298.56 cmPvega Delcid Other [employer] Other 12-05-2023 10:30-0500Body mass index (BMI) [Ratio] 36.04 kg/w1SxuvnAnh Delcid Other [employer] Other 12-05-2023 10:30-0500Body .26 kgPepepito Delcid Other [employer] Other 12-05-2023 10:30-0500Diastolic blood jujuaozd07 mm[Hg] Anh Delcid Other [employer] [employer] Other 12-05-2023 10:30-8464QqU8% (BldA) [Mass fraction]95 % Anh Delcid Other [facility] [place] Other 12-05-2023 10:30-0500Systolic blood aslrwaqr345 mm[Hg] Anh Delcid Other [facility] [employer] Other 09-08-2023 13:56-0400Body tqnjku205 cmMindy Cyrus PA-C Work Phone: [facility]09-08-2023 13:56-0400Body temperature 97.7 [degF]Daksha Cyrus PA-C Work Phone: [facility]09-08-2023 13:56-0400Body yrgglt25.63 kgMindy Cyrus PA-C Work Phone: [facility]09-08-2023 13:56-0400Diastolic blood hfigrtcv74 mm[Hg]Daksha Cyrus PA-C Work Phone: [facility]09-08-2023 13:56-0400Heart rate79 /min Daksha Cyrus PA-C Work Phone: [facility]09-08-2023 13:56-0400Respiratory rate 16 /minMindy Cyrus PA-C Work Phone: [facility]09-08-2023 13:56-4680OeR3% (BldA) [Mass fraction]95 %Daksha Cyrus PA-C Work Phone: [facility]09-08-2023 13:56-0400Systolic blood jlcuxxii783 mm[Hg]Daksha Cyrus PA-C Work Phone: [facility]06-16-2023 13:42-0400Body oigtli649 cm Daksha Cyrus PA-C Work Phone: [facility]06-16-2023 13:42-0400Body temperature 97.59 [degF]Daksha Kanger PA-C Work Phone: [facility]06-16-2023 13:42-0400Body kojzqs09.62 kgMinvera Cyrus PA-C Work Phone: [facility]06-16-2023 13:42-0400Diastolic blood jcwtyiwt69 mm[Hg]Daksha Cyrus PA-C Work Phone: [facility]06-16-2023 13:42-0400Heart rate82 /min Daksha Cyrus PA-C Work Phone: [facility]06-16-2023 13:42-0400Respiratory rate 18 /minMinvera Cyrus PA-C Work Phone: [facility]06-16-2023 13:42-7794RrS7% (BldA) [Mass fraction]95 %Daksha Kanger PA-C Work Phone: [facility]06-16-2023 13:42-0400Systolic blood vevuudnv945 mm[Hg]Daksha Kanger PA-C Work Phone: [facility]05-31-2023 09:26-0400Blood Pressure LocationMaher SALAM [phone]-AbsypLima [facility] Hospital05-31-2023 09:26-0400Diastolic blood xmieydex44 mm[Hg]Gomez SALAM [phone]-NqzqfLima Memorial Hospital05-31-2023 09:26-0400Heart rate82 /minMaher SALAM [phone]-FmqdjLima Memorial Hospital05-31-2023 09:26-0400Respiratory rate16 /minMaher SALAM [phone]-DzjzvLima Memorial Hospital05-31-2023 09:26-2036NcI8% (BldA) [Mass fraction]96 %Jason RUSSELL [phone]-CcoieMain [facility] Czjugf36-38-9939 09:26-0400Systolic blood ufzxqrxm504 mm[Hg]Jason RUSSELL [phone]-InbiwL[facility] Hospital04-28-2023 10:00-0400Diastolic blood xmvpufif08 mm[Hg]DO Vinay Bunting Work Phone: [facility]04-28-2023 10:00-0400 Heart rate76 /minDO Vinay Bunting Work Phone: [facility]04-28-2023 10:00-0400 Respiratory rate16 /minDO Vinay Bunting Work Phone: [facility]04-28-2023 10:00-0400 SaO2% (BldA) [Mass fraction]96 %DO Vinay Bunting Work Phone: [facility]04-28-2023 10:00-0400 Systolic blood vhwyyelr004 mm[Hg]DO Vinay Bunting Work Phone: [facility]04-28-2023 08:00-0400 Body dqenvhagwam39.7 [degF]DO Vinay Bunting Work Phone: [facility]04-28-2023 05:27-0400 Body lcimoa29.8 kgDO Vinay Bunting Work Phone: [facility]04-27-2023 12:20-0400 Body gxekoz046.48 cmDO Vinay Bunting Work Phone: [facility]03-24-2023 14:08-0400 Body krfqwy533 cmMindy Cyrus PA-C Work Phone: [facility]03-24-2023 14:08-0400Body temperature 97.2 [degF]Daksha Cyrus PA-C Work Phone: [facility]03-24-2023 14:08-0400Body .8 kgMindy Cyrus PA-C Work Phone: [facility]03-24-2023 14:08-0400Diastolic blood yuwrjjza58 mm[Hg]Daksha Cyrus PA-C Work Phone: [facility]03-24-2023 14:08-0400Heart rate84 /min Daksha Cyrus PA-C Work Phone: [facility]03-24-2023 14:08-0400Respiratory rate 16 /minMindy Cyrus PA-C Work Phone: [facility]03-24-2023 14:08-6161LjG3% (BldA) [Mass fraction]96 %Daksha Cyrus PA-C Work Phone: [facility]03-24-2023 14:08-0400Systolic blood vbxoeepi182 mm[Hg]Daksha Cyrus PA-C Work Phone: [facility]02-13-2023 16:28-0500Diastolic blood olmylfyn92 mm[Hg]DO Vinay Bunting Work Phone: [facility]02-13-2023 16:28-0500 Heart rate87 /minDO Vinay Bunting Work Phone: [facility]02-13-2023 16:28-0500 Respiratory rate16 /minDO Vinay Bunting Work Phone: [facility]02-13-2023 16:28-0500 SaO2% (BldA) [Mass fraction]96 %DO Vinay Bunting Work Phone: [facility]02-13-2023 16:28-0500 Systolic blood ysbzicpf988 mm[Hg]DO Vinay Bunting Work Phone: [facility]02-13-2023 13:16-0500 Body .56 cmDO Vinay Bunting Work Phone: [facility]02-13-2023 13:16-0500 Body newqcqksyzw80.5 [degF]DO Vinay Bunting Work Phone: [facility]02-13-2023 13:16-0500 Body awwvcw65.06 kgDO Vinay Bunting Work Phone: [facility]02-08-2023 10:10-0500 Blood Pressure LocationBeth Ruth [phone]-JlowlL[facility] Hospital02-08-2023 10:10-0500Body ynxaoywnklc23.8 [degF]Nisa Shepherd [phone]-GqczyLima Memorial Hospital02-08-2023 10:10-0500Diastolic blood byyjsudi90 mm[Hg]Nisa Shepherd [phone]-GajysLima [facility] Hospital02-08-2023 10:10-0500Heart rate77 /minBeth Ruth [phone]-JfiqrL[facility] Memorial Hospital02-08-2023 10:10-0500Systolic blood hiuaonef239 mm[Hg]Nisa Chatmanmetz [phone]-PzeqoLima Memorial Hospital01-27-2023 14:23-0500Body sgsxuh751 cmMindy Cyrus PA-C Work Phone: [facility]01-27-2023 14:23-0500Body temperature 97.39 [degF]Daksha Cyrus PA-C Work Phone: [facility]01-27-2023 14:23-0500Body gdppxe73.98 kgMindy Cyrus PA-C Work Phone: [facility]01-27-2023 14:23-0500Diastolic blood uqynxmct88 mm[Hg]Daksha Cyrus PA-C Work Phone: [facility]01-27-2023 14:23-0500Heart rate69 /min Daksha Kanger PA-C Work Phone: [facility]01-27-2023 14:23-0500Respiratory rate 16 /minMinvera Kanger PA-C Work Phone: [facility]01-27-2023 14:23-0498SyL2% (BldA) [Mass fraction]96 %Daksha Kanger PA-C Work Phone: [facility]01-27-2023 14:23-0500Systolic blood abemtcem771 mm[Hg]Daksha Kanger PA-C Work Phone: [facility]12-15-2022 13:19-0500Body temperature 98.71 [degF]Chair Abhishek Work Phone: [facility]12-15-2022 13:19-0500Diastolic blood xcvjqiiu84 mm[Hg]Chair [place] Work Phone: [facility]12-15-2022 13:19-0500Heart rate82 /min Chair [place] Work Phone: [facility]12-15-2022 13:19-0500Respiratory rate 18 /minChair Abhishek Work Phone: [facility]12-15-2022 13:19-7515NqL4% (BldA) [Mass fraction]95 %Chair [place] Work Phone: [facility]12-15-2022 13:19-0500Systolic blood sfkhgipy431 mm[Hg]Chair Abhishek Work Phone: [facility]12-08-2022 13:45-0500Diastolic blood gxhsyqyw00 mm[Hg]Chair [place] Work Phone: [facility]12-08-2022 13:45-0500Heart rate78 /min Chair [place] Work Phone: [facility]12-08-2022 13:45-0500Respiratory rate 16 /minChair [place] Work Phone: [facility]12-08-2022 13:45-6490BgT5% (BldA) [Mass fraction]99 %Chair Abhishek Work Phone: [place] [address]-08-2022 13:45-0500Systolic blood lowknvib368 mm[Hg]Chair Abhishek Work Phone: [facility]12-01-2022 10:01-0500Body ovpsqz585 cm Daksha Cyrus PA-C Work Phone: [facility]12-01-2022 10:01-0500Body temperature 97.9 [degF]Daksha Cyrus PA-C Work Phone: [facility]12-01-2022 10:01-0500Body asekyl31.07 kgMindy Cyrus PA-C Work Phone: [facility]12-01-2022 10:01-0500Diastolic blood sjvwifol27 mm[Hg]Daksha Cyrus PA-C Work Phone: [facility]12-01-2022 10:01-0500Heart rate92 /min Daksha Cyrus PA-C Work Phone: [facility]12-01-2022 10:01-0500Respiratory rate 16 /minMindy Cyrus PA-C Work Phone: [facility]12-01-2022 10:01-3125ZhN2% (BldA) [Mass fraction]98 %Daksha Cyrus PA-C Work Phone: [facility]12-01-2022 10:01-0500Systolic blood xxqsrcbo216 mm[Hg]Daksha Cyrus PA-C Work Phone: [facility]11-29-2022 11:30-0500Body .56 cmPeggy Delcid Other [place] Other 11-29-2022 11:30-0500Body mass index (BMI) [Ratio] 36.39 kg/r8Tzhmw Delcid Other web care [employer] Other 11-29-2022 11:30-0500Body qjldyqcqueu65.8 [degF]Anh Delcid Other web care [employer] Other 11-29-2022 11:30-0500Body zdlala43.16 kgPeggy Delcid Other web care [employer] Other 11-29-2022 11:30-0500Diastolic blood xbgqhdji95 mm[Hg] Anh Delcid Other web care [employer] Other 11-29-2022 11:30-7246OyQ8% (BldA) [Mass fraction]97 % Anh Delcid Other web care [employer] Other 11-29-2022 11:30-0500Systolic blood mm[Hg] Anh Delcid Other web care [employer] Other 11-16-2022 10:51-0500Body qqnxsy086 cmHenry Walker MD Work Phone: [facility]11-16-2022 10:51-0500Body temperature 96.91 [degF]Henry Walkre MD Work Phone: [facility]11-16-2022 10:51-0500Body bjkhej24.07 kgHenry Walker MD Work Phone: [facility]11-16-2022 10:51-0500Diastolic blood yqlmyvmn53 mm[Hg]Henry Walker MD Work Phone: [facility]11-16-2022 10:51-0500Heart rate92 /min Henry Walker MD Work Phone: [facility]11-16-2022 10:51-0500Respiratory rate 18 /minHenry Walker MD Work Phone: [facility]11-16-2022 10:51-9232PtU4% (BldA) [Mass fraction]96 %Henry Walker MD Work Phone: [facility]11-16-2022 10:51-0500Systolic blood enhurrjo904 mm[Hg]Henry Walker MD Work Phone: [facility]10-18-2022 10:24-0400Diastolic blood oeobtxdh34 mm[Hg]Jose Carlos [facility]10-18-2022 10:24-0400Mean blood mm[Hg]Jose Carlos [facility]10-18-2022 10:24-0400 Systolic blood oyoweoxz850 mm[Hg]Jose Carlos [facility]10-18-2022 10:10-0400Blood Pressure LocationDalillian [facility]10-18-2022 10:10-0400 Diastolic blood mm[Hg]Jose Carlos [facility]10-18-2022 10:10-0400Heart rate90 /Carlos [facility]10-18-2022 10:10-0400 Respiratory rate18 /Carlos [facility]10-18-2022 10:10-4321BxG9% (BldA) [Mass fraction]99 %Jose Carlos [facility]10-18-2022 10:10-0400 Systolic blood mm[Hg]Jose Carlos [facility]09-06-2022 20:31-0400 Diastolic blood myxzrktz17 mm[Hg]DO Vinay Bunting Work Phone: [facility]09-06-2022 20:31-0400 Heart rate73 /minDO Vinay Bunting Work Phone: [facility]09-06-2022 20:31-0400 Respiratory rate16 /minDO Vinay Bunting Work Phone: [facility]09-06-2022 20:31-0400 SaO2% (BldA) [Mass fraction]99 %DO Vinay Bunting Work Phone: [facility]09-06-2022 20:31-0400 Systolic blood mm[Hg]DO Vinay Bunting Work Phone: [facility]09-06-2022 15:52-0400 Body urutcm573.56 cmDO Vinay Bunting Work Phone: [facility]09-06-2022 15:52-0400 Body zipubphfjhj75 [degF]DO Vinay Bunting Work Phone: [facility]09-06-2022 15:52-0400 Body pjimly64.06 kgDO Vinay Bunting Work Phone: [facility]07-28-2022 09:33-0400 Blood Pressure LocationMaher SALAM [facility]07-28-2022 09:33-0400 Diastolic blood svjtrmxi73 mm[Hg]Gomez SALAM [facility]07-28-2022 09:33-0400Heart rate87 /minMaher SALAM [facility]07-28-2022 09:33-0400 Respiratory rate14 /minMaher SALAM [facility]07-28-2022 09:33-9661EkN8% (BldA) [Mass fraction]97 %Gomez SALAM [facility]07-28-2022 09:33-0400 Systolic blood xmfudkxy997 mm[Hg]Gomez SALAM [facility]07-28-2022 09:20-0400Blood Pressure LocationPaher SALAM [facility]07-28-2022 09:20-0400 Diastolic blood mm[Hg]Gomez SALAM [facility]07-28-2022 09:20-0400Heart rate92 /minMaher SALAM [facility]07-28-2022 09:20-0400 Respiratory rate29 /minMaher SALAM [facility]07-28-2022 09:20-5668QgK6% (BldA) [Mass fraction]97 %Gomez SALAM [facility]07-28-2022 09:20-0400 Systolic blood kyzhaloj147 mm[Hg]Gomez SALAM [facility]07-28-2022 09:15-0400Blood Pressure LocationMaher SALAM [facility]07-28-2022 09:15-0400 Diastolic blood kcvfqvik85 mm[Hg]Gomez SALAM [facility]07-28-2022 09:15-0400Heart rate92 /minMaher SALAM [facility]07-28-2022 09:15-0400 Respiratory rate10 /minMaher SALAM [facility]07-28-2022 09:15-8707TqI1% (BldA) [Mass fraction]91 %Gomez SALAM [facility]07-28-2022 09:15-0400 Systolic blood dahqyavw153 mm[Hg]Gomez SALAM [facility]07-28-2022 09:08-0400Body kpunnrmjcqq47.34 [degF]Gomez SALAM [facility]07-28-2022 07:48-0400Body pbdhgmuwzwp59.8 [degF][facility] SALAM [facility]06-08-2022 09:40-0400 Diastolic blood swwtshyc76 mm[Hg][facility] SALAM [phone]-WsyscMain [facility] [phone] 09:40-0400Heart rate78 /minMaher SAW [phone]-RyjbuMain [facility] 06-08-2022 09:40-0400Systolic blood yszdoths476 mm[Hg] [facility] SALAM [phone]-AvzbjMain [facility] Encounters Encounter DateEncounter TypeCare ProviderFacilityStart: 21-34-8853tfxxvncplc Verónica UgarteFacility:[facility]tart: 08-07-2025 End: 68-62-4110mzbujxriyiBWJJZ M MUSSERFacility:[facility] HospitalStart: 07-24-2025 End: 03-25-3121pgzrxqzoqrZimbnw Bunting DO Work Phone: [facility] Work Phone: Start: 07-24-2025 End: 17-02-8580Klodfmn encounter procedureChristopher Nathanael Henriquez DO-[facility] Work Phone: Start: 07-19-2025 End: 78-34-7568Rvqwday encounter procedureDaryan Josse Matta DO-XRay [facility] Work Phone: Start: 07-19-2025 End: 87-89-0806mcmzdzbylzSjpjes Bunting DO Work Phone: [facility] Work Phone: Start: 07-11-2025 End: 23-79-8513rcgcdumgmkXwbvbbk A. MouchliFacility:[facility] DHStart: 07-11-2025 End: 88-61-0876Ofxovif encounter procedureVerónica Ugarte [phone]-HjbdnMain Campus Medical Center [facility] Start: 07-05-2025 End: 09-02-7786gfznthkwzwIkqnae Bunting DO Work Phone: [facility] Work Phone: Start: 07-05-2025 End: 21-88-7858Wsrgpes encounter procedureMarilyn Stewart MD-[facility] Work Phone: Start: 06-26-2025 End: 06-41-2568Tbqnycn encounter procedureDajaylenenina Josse Matta DO-Lab [address] Work Phone: Start: 06-26-2025 End: 86-39-5106rtdxmlmqpuTjzdwj Bunting DO Work Phone: [facility] Work Phone: Start: 06-08-2025 End: 16-03-2982Bkckzhozh to same day surgery centerVerónica Ugarte MD- [facility] Work Phone: Start: 06-08-2025 End: 10-92-2361pubncopgjdMuqwld Bunting DO Work Phone: [facility] Work Phone: Start: 49-02-0051Omm-patient / Non-visitBradley Rowland MD- [facility] Work Phone: Start: 06-07-2025 End: 72-20-3066Rtpvwrm encounter procedureNo Sh Aud Audiology Aid - Jenny Kee CI AUDComment on above:Hearing loss, mixed, bilateral (Primary Dx) Start: 06-07-2025 End: 74-39-6183vvqxjwouvpVIXLER LOWENot AvailableStart: 04-25-2025 End: 78-82-1534Mzyokx outpatient visit 15 minutesDaksha Bridges PA-C Work Phone: Hematology/OncologyComment on above:Anemia, unspecified type (Primary Dx); Iron deficiency anemia, unspecified iron deficiency anemia type; Stage 3b chronic kidney disease (HCC); Anemia in stage 3a chronic kidney disease (HCC)Start: 04-25-2025 End: 59-79-4725bcqnadzlxzHWTWM M MUSSERFacility:[facility] HospitalStart: 04-18-2025 End: 59-37-4007udkwfzkezpYUAOR M MUSSERFacility:[facility] HospitalStart: 04-11-2025 End: 53-17-1258Spetea-up encounterDaksha Bridges PA-C Work Phone: Hematology/OncologyComment on above:labs/follow up Start: 04-07-2025 End: 52-57-3007aorleawidzCEWLZ M MUSSERFacility:[facility] HospitalStart: 03-30-2025 End: 95-94-3264tughxxvznkZvddkwe A. MouchliFacility:[facility] DHStart: 03-30-2025 End: 17-96-8263Jglrngr encounter procedureVerónica Ugarte [phone]-TtyqeMain Campus [facility] Center [facility] Start: 03-27-2025 End: 85-88-0471gvzkisfgwiQuatvno A. MouchliFacility:FTMCStart: 03-27-2025 End: 86-25-6817Spezvui encounter procedureMomacario CrArpan Ugarte [facility] Start: 03-20-2025 End: 79-57-5117aepzlsxylcHrvuodg Vjuanitaas Giedraitis MDFacility:PM [facility] Start: 03-06-2025 End: 22-23-1772Rmqzwq flowsheetAngela Lowe PA Work Phone: ana [place]UEStart: 03-06-2025 End: 49-23-7516Bupgja flowsheetAngela Lowe PA Work Phone: ana BEL[place]UEStart: 03-06-2025 End: 16-27-2507Uvazbu outpatient visit 25 minutesAngela Lowe PA Work Phone: ana BELLEVUEComment on above:Transient ischemic attack (Primary Dx); Polyneuropathy; Syncope and collapse; Carpal tunnel syndrome, bilateral upper limbsStart: 03-06-2025 End: 00-83-9893yxfplswxqzTZEAGY LOWENot AvailableStart: 02-20-2025 End: 59-97-1852aqswtmlxziYjqjqcu Vytautas Giedraitis MDFacility:PM [place] Start: 02-08-2025 End: 40-27-5224Qklykty encounter procedureDarrin Bunting DO Work Phone: [facility]-MRI [address] Closed Work Phone: Start: 02-08-2025 End: 45-85-9099nrrupvdqfrCwzjwb Bunting DO Work Phone: [facility] Work Phone: Start: 01-09-2025 End: 49-58-3512Homuln-up encounterDaksha Bridges PA-C Work Phone: Hematology/OncologyStart: 01-09-2025 End: 62-72-0555jnhpgetndmKrarpak Vytautas Giedraitis MDFacility:PM [facility] Start: 01-06-2025 End: 22-78-3554Ldgjmz outpatient visit 15 minutesDaksha Bridges PA-C Work Phone: Hematology/OncologyComment on above:Iron deficiency anemia, unspecified iron deficiency anemia type (Primary Dx); Thrombocytopenia (HCC); Stage 3b chronic kidney disease (HCC)Start: 01-06-2025 End: 66-68-6854ehohdluditBYYBL M MUSSERFacility:[facility] Hospitaltart: 01-03-2025 End: 07-81-6325Nzbwtk flowsheetAngela Lowe PA Work Phone: [facility]ITALUEStart: 01-03-2025 End: 73-04-9762Hoivou flowsheetAngela Lowe PA Work Phone: ana CREOLEEVUEStart: 01-03-2025 End: 55-78-4574Brnkbg outpatient visit 15 minutesAngela Lowe PA Work Phone: aNA MYRIAMEVUEComment on above:Transient ischemic attack (Primary Dx); Polyneuropathy; Carpal tunnel syndrome, bilateral upper limbsStart: 01-03-2025 End: 60-85-1437etstvslnlnJXBDEQ LOWENot AvailableStart: 01-02-2025 End: 49-65-2005Njdruikuz encounterDaksha Bridges PA-C Work Phone: Hematology/OncologyComment on above:Lab OrdersStart: 12-28-2024 End: 18-86-7788Zswbpmf encounter procedureDarrin Bunting DO Work Phone: [facility] Work Phone: Start: 12-28-2024 End: 76-60-2205enukoxyaquCvtwun Bunting DO Work Phone: [facility] Work Phone: Start: 12-27-2024 End: 11-40-1185rzxmoskqudEatzyn Bunting DO Work Phone: [facility] Work Phone: Start: 12-27-2024 End: 02-59-0470Mkbahiq encounter procedureDarrin Bunting DO Work Phone: [facility]ending [facility] [place] Work Phone: Start: 12-15-2024 End: 53-03-5369Yrlmsuk encounter procedureDarrin Bunting DO Work Phone: [facility]-XRay [facility] Work Phone: Start: 12-15-2024 End: 96-30-9492wamkgbackdSiasvf Bunting DO Work Phone: [facility] Work Phone: Start: 11-14-2024 End: 91-49-0165Qpbxydo encounter procedureDarrin Bunting DO Work Phone: [facility] Work Phone: Start: 10-20-2024 End: 92-31-1504Bsq-admission assessmentOrmacario Ugarte [facility] Start: 10-10-2024 End: 80-30-0487Tgvsddcge encounterMinvera Bridges PA-C Work Phone: Hematology/OncologyComment on above:ResultsStart: 10-07-2024 End: 51-16-4658Vkjohb outpatient visit 15 minutesDaksha Bridges PA-C Work Phone: Hematology/OncologyComment on above:Iron deficiency anemia, unspecified iron deficiency anemia type (Primary Dx); Thrombocytopenia (HCC); Stage 3b chronic kidney disease (HCC)Start: 10-07-2024 End: 70-30-3747octangrxbuHXNLQ M MUSSERFacility:[facility] Hospitaltart: 10-06-2024 End: 31-61-1521Yazxiuz encounter procedureDarrin Bunting DO Work Phone: [facility]-Electrodiagnostics Work Phone: Start: 10-06-2024 End: 96-37-1175cxjwvodzpnWxzzfe BuntingFacility:[facility] Centertart: 10-05-2024 End: 63-41-5866Qoksfie encounter procedureNoms Aud Audiology Aid - Jenny Sweet CI AUDComment on above:Hearing loss, mixed, bilateral (Primary Dx) Start: 10-05-2024 End: 38-42-7663dzwjcnrmorIGTQDS LOWENot AvailableStart: 09-29-2024 End: 15-25-4979pzjdnvuzivIodykey A. MouchliFacility:[facility] DHStart: 09-29-2024 End: 39-36-5900Awckcfd encounter procedureMomacario Ugarte [phone]-PfpkdMain Campus [facility] Center [facility] Start: 09-19-2024 End: 48-91-5695Olpxeod encounter procedureDO Vinay Bunting Work Phone: [facility]-Lab [address] Work Phone: Start: 09-19-2024 End: 68-17-7695byrvugtfcyNK Vinay Bunting Work Phone: [facility] Work Phone: Start: 08-16-2024 End: 56-31-7938Ziujdo flowsheetFelicia C Ulyssesnagel DIVISION HEAD Work Phone: noMS [address] R[address]TEStart: 08-16-2024 End: 93-91-1117Brwcqp flowsheetFelicia C Windnagel DIVISION HEAD Work Phone: NOMS [address] R[address]TEStart: 08-16-2024 End: 64-60-5424Zudqpj outpatient visit 25 minutesFelicia C Chepegel DIVISION HEAD Work Phone: NOM[facility] [address] R[address]TEComment on above:Transient ischemic attack (Primary Dx); Palpitations; PolyneuropathyStart: 08-16-2024 End: 93-33-0680uyrxzbrzcrZUICGCX C CONNERNot AvailableStart: 07-21-2024 End: 04-69-1200Edovpercwa and management of inpatientDO Vinay Bunting Work Phone: [facility] Work Phone: Start: 07-21-2024 End: 44-92-2127mcmcumiaupa encounterDO Vinay Bunting Work Phone: [facility] Work Phone: Start: 07-19-2024 End: 33-21-8668Eqolqwmip encounterMinvera Bridges PA-C Work Phone: Hematology/OncologyComment on above:ResultsStart: 07-15-2024 End: 71-46-2887Aaxxsb outpatient visit 15 minutesMinvera Bridges PA-C Work Phone: Hematology/OncologyComment on above:Iron deficiency anemia, unspecified iron deficiency anemia type (Primary Dx); Anemia of chronic renal failure, unspecified CKD stageStart: 07-04-2024 End: 55-00-4273wlstllfhngFS Vinay Bunting Work Phone: [facility] Work Phone: Start: 07-04-2024 End: 47-03-3297Reugzkr encounter procedureDO Vinay Bunting Work Phone: [facility] Work Phone: Start: 05-24-2024 End: 83-17-7275tkddiezinhRA Vinay Bunting Work Phone: [facility] Work Phone: Start: 05-24-2024 End: 63-02-3474Rqdjvwz encounter procedureDO Vinay Bunting Work Phone: [facility]-Ultrasound [address] Work Phone: Start: 05-11-2024 End: 19-38-1246yzrtiuzxrmBK Vinay Bunting Work Phone: [facility] Work Phone: Start: 05-11-2024 End: 56-37-6357Ubbwlva encounter procedureDO Vinay Bunting Work Phone: [facility] Nephrology Work Phone: Start: 43-36-4394Qsnshijux encounterSamantha Mcmahan RN Hematology/OncologyComment on above:ResultsStart: 04-15-2024 End: 01-06-6965Jvdiglq encounter procedureShana Flores APRN.MANAGER CLINICAL APPLICATIONS Work Phone: Hematology/OncologyComment on above:Iron deficiency anemia, unspecified iron deficiency anemia type (Primary Dx); Anemia of chronic renal failure, unspecified CKD stage; Thrombocytopenia (HCC)Start: 03-28-2024 End: 68-50-8021Xoxfxxk encounter procedureVerónica Ugarte [phone]-BewunMain Campus Medical Center [facility] Start: 02-25-2024 End: 80-09-3186qsktxfrkdqNzrcf 12 Abhishek Work Phone: Hematology/OncologyComment on above:Iron deficiency anemia due to chronic blood loss (Primary Dx)Start: 02-18-2024 End: 76-30-5619qgsyelxybtLeamh 11 Abhishek Work Phone: Hematology/OncologyComment on above:Iron deficiency anemia due to chronic blood loss (Primary Dx)Start: 02-11-2024 End: 47-07-5736sqtoxblwkfIP Vinay Bunting Work Phone: [facility] Work Phone: Start: 02-11-2024 End: 58-73-9250Hciuhua encounter procedureDO Vinay Bunting Work Phone: [facility]-XRay [address] Work Phone: Start: 57-03-4785Ftajwk WorkLorkerri POTTERW Hematology/OncologyStart: 27-07-8299Fprwjmaoe encounterSamantha Mcmahan RN Hematology/OncologyComment on above:IV IronStart: 03-95-6718Czcdyemdr encounter Samantha Mcmahan RNHematology/OncologyComment on above:Patient UpdateStart: 01-29-2024 End: 94-41-3367seqaxtduxdJoppr M Musser PA-C Work Phone: Hematology/OncologyComment on above:Stage 3b chronic kidney disease (HCC) (Primary Dx); Iron deficiency anemia secondary to inadequate dietary iron intakeStart: 01-29-2024 End: 79-80-2477Gdhyfwa encounter procedureDaksha Bridges PA-C Work Phone: SANDUSKYStart: 01-28-2024 End: 75-43-0104Ioaqurw encounter Ijeoam Hankins [facility] Start: 12-07-2023 End: 73-41-6979Sluldhm encounter Ijeoma Hankins Ruth [phone]-GypyrMain Campus Medical Center [facility] Start: 27-58-4118Pbjyjshol encounterSamantha Mcmahan RN Hematology/OncologyComment on above:ResultsStart: 52-51-0099Yctztz outpatient visit 25 minutesPeggy [facility] OutPtStart: 10-20-2023 End: 27-58-0742rfrnqjdrgiRD Vinay Bunting Work Phone: [facility] Work Phone: Start: 10-20-2023 End: 06-13-2587Vcqczfz encounter procedureDO Vinay Bunting Work Phone: [facility]-Sleep Lab Work Phone: start: 09-05-2023 End: 73-44-0369tfvadqopkePR Vinay Bunting Work Phone: [facility] Work Phone: Start: 09-05-2023 End: 71-24-2869Qvwxafp encounter procedureDO Vinay Bunting Work Phone: [facility]-Lab [address] Work Phone: Start: 21-26-1560Bprteidwr encounterSamantha Mcmahan RN Hematology/OncologyComment on above:ResultsStart: 07-24-2023 End: 70-49-3902glzqkcarbrTbfyp M Musser PA-C Work Phone: Hematology/OncologyComment on above:Iron deficiency anemia secondary to inadequate dietary iron intake (Primary Dx); Stage 3b chronic kidney disease (HCC)Start: 07-24-2023 End: 69-66-3084Xwecxgn encounter procedureDaksha Bridges PA-C Work Phone: SANDUSKYStart: 74-32-2876Ngwziylwo encounterDaksha Bridges PA-C Work Phone: Hematology/OncologyComment on above:ResultsStart: 34-36-5210Ypmwhsgjs encounterKarlie Vallejo RNHematology/OncologyComment on above:ResultsStart: 05-01-2023 End: 22-92-0186nuprwfmgsaQttll M Musser PA-C Work Phone: Hematology/OncologyComment on above:Iron deficiency anemia secondary to inadequate dietary iron intake (Primary Dx); Stage 3b chronic kidney disease (HCC)Start: 05-01-2023 End: 57-91-9538Utohhcy encounter procedureDaksha Bridges PA-C Work Phone: SANDUSKYStart: 66-10-0146qpjvbnredeYmriuagg:9090Start: 04-22-2023 End: 22-80-3246Qnyvihn encounter procedureJason RUSSELL [facility] Start: 04-15-2023 End: 03-74-6704Dtiwuiv encounter procedureMaher SALAM [phone]-GwucmMain Campus Medical Center [facility] Start: 03-27-2023 End: 87-91-5119waogzgdmkuXI VINAY BUNTINGFacility:L6Rbjdj: 03-13-2023 End: 41-95-8452owvcavzhbsDV Vinay Bunting Work Phone: [facility] Work Phone: Start: 03-13-2023 End: 52-93-6041Jbqafbb encounter procedureDO Vinay Bunting Work Phone: [facility]-Electrodiagnostics Work Phone: Start: 03-11-2023 End: 31-40-6708Hommwbxhtr and management of inpatientDO Vinay Bunting Work Phone: [facility] Work Phone: Start: 51-13-5178xrdstckudzKxpcxhgb:9090Start: 02-23-2023 End: 19-17-7617ewawcdmoktISAAJ SALAMFacility:J9Espyd: 39-18-4240Xtqgurhfk encounterSonia Rg RNHematology/OncologyComment on above:ResultsStart: 02-06-2023 End: 94-30-0916ulenpqxwinOquvaChito Bridges PA-C Work Phone: Hematology/OncologyComment on above:Iron deficiency anemia secondary to inadequate dietary iron intake (Primary Dx)Start: 02-06-2023 End: 21-76-2793Nzhaayo encounter Tiffani Bridges PA-C Work Phone: SANDUSKYStart: 01-16-2023 End: 74-60-9854Zzmdlem encounter procedureDO Vinay Bunting Work Phone: [facility]-Lab [address] Work Phone: Start: 01-08-2023 End: 95-26-4814Pwuihma encounter procedureNisa Cr [facility] Start: 12-29-2022 End: 85-99-7224Wdsecbpbf to same day surgery [facility] Vinay Matta Work Phone: [facility] CampusStart: 12-29-2022 End: 11-46-2705gpcmzyifnqSO Vinay Bunhomer Work Phone: [facility] Work Phone: Start: 12-24-2022 End: 76-35-4776Cjcjisx encounter procedureNisa Hankins Ruth [phone]-HdjlbMain Campus Medical Center [facility] Start: 84-85-1491Utclblsdb encounterSonia Rg RN Hematology/OncologyComment on above:ResultsStart: 12-12-2022 End: 82-70-2058avjbxggqeaWndlz M Musser PA-C Work Phone: Hematology/OncologyComment on above:Iron deficiency anemia secondary to inadequate dietary iron intake (Primary Dx)Start: 12-12-2022 End: 85-23-3371Cpswxlc encounter Tiffani Bridges PA-C Work Phone: SANDUSKYStart: 10-30-2022 End: 71-54-0794nrjdkhqcjcAsyeu [address] [place] Work Phone: Hematology/OncologyComment on above:Iron deficiency anemia due to chronic blood loss (Primary Dx)Start: 10-23-2022 End: 02-78-7151kzhktyisuxMzlln [address] [place] Work Phone: Hematology/OncologyComment on above:Iron deficiency anemia due to chronic blood loss (Primary Dx)Start: 87-03-1511Zqbjba WorkRenetta POTTERWHematology/OncologyStart: 10-16-2022 End: 52-49-0490Xgzbqli encounter Tiffani Bridges PA-C Work Phone: SANDUSKYStart: 10-16-2022 End: 97-99-6956yklvbulwzwNmatyChito Bridges PA-C Work Phone: Hematology/OncologyComment on above:Anemia, unspecified type (Primary Dx); Iron deficiency anemia secondary to inadequate dietary iron intakeIron deficiency anemia due to chronic blood loss (Primary Dx)Start: 10-15-2022 Telephone encounterFinancial Navigator Braden Work Phone: Hematology/OncologyComment on above:Benefits InvestigationStart: 53-55-9328Ojvmds outpatient visit 25 minutesPeggy [facility] SouthStart: 10-14-2022 End: 63-97-3524fvkeeogruxSQ Vinay Matta Work Phone: [facility] Work Phone: Start: 10-14-2022 End: 83-84-4328Ivnyvdm encounter procedureDO Vinya Matta Work Phone: [facility]-Sleep LabStart: 55-57-1795Efantr WorkLori Alex WHematology/OncologyStart: 12-12-8599Khsvwidqe encounterHenry Walker MD Work Phone: Hematology/OncologyComment on above:Results, LabStart: 10-01-2022 End: 07-89-7578qvxeugvsrmVksljTad Walker MD Work Phone: Hematology/OncologyComment on above:Anemia, unspecified type (Primary Dx)Start: 10-01-2022 End: 57-65-5471Wuxcaez encounter Declan Walker MD Work Phone: SANDUSKYStart: 69-03-6291Cqyrl abstractBraden Walker MD Work Phone: Hematology/OncologyStart: 09-19-2022 End: 8528Uyojobb encounter procedureNisa [facility] Start: 09-09-2022 End: 85-99-9976bfdsnrtklcAA DOCTOR MISCFacility:F1Gvqrk: 09-02-2022 End: 50-25-7264Tzvslsp encounter procedureDalillian Mattson [facility] Start: 07-31-2022 End: 26-40-9926Mgwypsc encounter procedureDO Vinay Bunting Work Phone: [facility] Start: 07-24-2022 End: 68-35-2389Clqogqd encounter procedureDO Vinay Bunting Work Phone: [facility]-Lab Main CampusStart: 07-22-2022 End: 11-09-0321Iuuscdlea department patient visitDO Vinay Bunting Work Phone: [facility]-Emergency RoomStart: 06-24-2022 End: 92-48-4318ayywwcrstbDSBWO SALAMFacility:J0Tkxly: 06-23-2022 End: 58-11-1783vtoogofbtfWE VINAY BUNTINGFacility:A4Tsffl: 06-16-2022 End: 15-68-4650Hrtrxip encounter procedureDO Vinay Bunting Work Phone: [facility] Start: 06-12-2022 End: 31-57-9506Jtkjwwo encounter procedureMaher SALAM [facility] Start: 05-21-2022 End: 91-91-8408Miuszmj encounter procedureDO Vinya Bunting Work Phone: [facility] CampusStart: 04-23[facility]2022 End: 51-49-6064Lnushsm encounter procedureMaher SALAM [phone]-IzzcmMain [facility] Start: 04-22-2022 End: 88-15-9554Twejhju encounter procedureDO Vinay Bunting Work Phone: [facility]: 01-31[facility]2021 End: 35-88-3939Cwyjxsf encounter procedureDarrin Bunting-Lab [facility] [place] Procedures DateProcedureProcedure DetailPerforming ClinicianStart: 36-63-9359Vhepe X-ray of bilateral shouldersDarrin Bunting DO Work Phone: Start: 58-76-0017X-ray of both knees, standing views Vinay Bunting DO Work Phone: Start: 05-74-5227Xbdzckwacl elastography of liver Vinay Bunting DO Work Phone: Start: 66-08-7715XY lumbar spine wo conDarrin Bunting DO Work Phone: Start: 66-88-8019Oesrv cultureDarrin Bunting DO Work Phone: Start: 32-99-9383Zssdasfsk mammography of bilateral breastsDarrin Bunting DO Work Phone: Start: 84-48-7649D-ray of lumbar spine, six views including bending viewsDarrin Bunting DO Work Phone: Start: 64-74-8773ENLM-CoV-2, Influenza & RSV (PCR)DO Vinay Bunting Work Phone: Start: 84-86-5324Ijnywpt ultrasonography of bilateral carotid arteriesDO Vinay Bunting Work Phone: Start: 19-50-3246HMD of headDO Vinay Bunting Work Phone: Start: 80-79-0097PP of head without contrastDO Vinay Bunting Work Phone: Start: 08-69-5879Tmhdq chest X-rayDO Vinay Bunting Work Phone: Start: 08-29-5404Ohyocjkypokosje of bilateral kidneys DO Vinay Bunting Work Phone: Start: 29-19-9512Mdbray tunnel syndrome (disorder) Verónica Ugarte Start: 35-02-4713Sxwcm chest X-rayDO Vinay Bunting Work Phone: Start: 32-13-1261IOM of headDO Vinay Bunting Work Phone: Start: 25-48-4216SZ angiography of headDO Vinay Bunting Work Phone: Start: 78-42-7505TQ angiography of neck vesselsDO Vinay Bunting Work Phone: Start: 32-22-7662YS of head without contrastDO Vinay Bunting Work Phone: Start: 25-27-7346Xnxxo chest X-rayDO Vinay Bunting Work Phone: Start: 02-23-5754Ptgsr cultureDO Vinay Bunting Work Phone: Start: 48-58-5075MmzfgoflizdOM Vinay Bunting Work Phone: Start: 71-92-8841Sgrp energy X-ray absorptiometryDO Vinay Bunting Work Phone: Start: 61-11-0942Xddje chest X-rayDO Vinay Bunting Work Phone: Start: 54-56-0798Vduurevow mammography of bilateral breastsDO Vinay Bunting Work Phone: Start: 82-97-3561TlarxvnonspYsbckpq [place] [employer] Work Phone: Start: 86-65-5313CcbnvjxgvwfMtdtc SALAM Start: 73-44-2643MzauujawwgzwdfxjfuhsemgmedIkiun SALAM Start: 89-06-5930L-ray of both kneesDO Vinay Bunhomer Work Phone: Scar managementMaher RUSSELL Urine cultureDO Vinay Bunhomer Work Phone: Plan of Treatment DateCare ActivityDetailAuthorStart: 67-35-5326Hituzpxkz for malignant neoplasm of colonNOMS HealthcareStart: 17-68-7053Mkkleqrq ScreeningDiabetes Screening [facility]ertart: 01-49-1269Qtiicnfj ScreeningDiabetes ScreeningPremier Health Atrium Medical Centertart: 93-18-7516Jwztbztq ScreeningDiabetes ScreeningAvita Health System Start: 95-92-5007Iebuyjbi ScreeningDiabetes ScreeningPremier Health Atrium Medical Centertart: 13-57-8873Jvmplhjf ScreeningDiabetes ScreeningPremier Health Atrium Medical Centertart: 01-28-2027 Diabetes ScreeningDiabetes ScreeningPremier Health Atrium Medical Centertart: 66-20-0216Tvterzon ScreeningDiabetes ScreeningPremier Health Atrium Medical Centertart: 66-32-2737HUANEASC SCREEN DIABETES SCREENPremier Health Atrium Medical Centertart: 91-20-2977WTDUMZJY SCREENDIABETES SCREEN [facility]ertart: 26-99-9033Ibczvncy blood countHemoglobin/Hematocrit [facility]ertart: 44-20-8671Dytksnxodk measurementSerum CreatininePremier Health Atrium Medical Centertart: 58-44-4374GKYAVXOC SCREENDIABETES SCREENPremier Health Atrium Medical Centertart: 14-38-1465Crwcsuut blood countHemoglobin/HematocritPremier Health Atrium Medical Centertart: 97-24-7029Wlehgymebp measurementSerum CreatininePremier Health Atrium Medical Centertart: 46-49-5289DBAQCUCH SCREENDIABETES SCREENPremier Health Atrium Medical Centertart: 10-07-2025 Complete blood countHemoglobin/HematocritPremier Health Atrium Medical Centertart: 10-07-2025 Creatinine measurementSerum CreatininePremier Health Atrium Medical Centertart: 55-58-2069MOHPSFPT SCREENDIABETES SCREENPremier Health Atrium Medical Centertart: 08-04-2025 End: 29-12-1825Bksaky-up axhsqnkge99/19/2025 11:00 AM EDT Visit (SP) Office Hematology/Oncology [address] [place] [address] Daksha Bridges PA-C [address] [place] [address] 3 month follow up with Daksha and labHematology/OncologyComment on above:3 month follow up with Daksha and labStart: 08-04-2025 End: 10-29-6198Kiqhufg encounter /19/2025 10:45 AM EDT Office Visit [facility] [address] [place] [address] 3 month follow up with Daksha and labNortHenry Ford West Bloomfield Hospital LaboratoryComment on above:3 month follow up with Daksha and lab Start: 74-78-2339Qvvdfywjl vaccinationInfluenza Vaccine (#1)[facility] Start: 43-79-1237Scexwdss blood countHemoglobin/HematocritCleveland ClinicStart: 69-37-5893Nwaknmpdeg measurementSerum CreatinineCleveland ClinicStart: 06-26-2025 End: 63-04-4253Xycsvjb encounter nmeqvtpcz95/11/2025 10:00 AM EDT Office Visit [facility] [address] [place] [address] Trudy Weiss PA [address] [place] [address] MAXX [facility] CANTONtart: 40-10-5009PthbxrebkMer[address] Health St. Vincent Medical Centertart: 91-51-7584Kgmcxkyl blood countHemoglobin/HematocritCleveland ClinicStart: 77-12-2919Iqnuiqjyvx measurementSerum CreatinineCleveland ClinicStart: 04-07-2025 End: 16-45-6807Fmnxna-up wraxzimtx58/23/2025 2:00 PM EDT Visit (SP) Office Hematology/Oncology [address] [place], [place] [phone] Daksha Bridges PA-C [address] [place] [address] 3 month follow up with Daksha and labHematology/OncologyComment on above:3 month follow up with Daksha and labStart: 04-07-2025 End: 75-73-7078Mowlfqv encounter odukzqiye43/23/2025 1:45 PM EDT Office Visit [facility] [address] [place] [address] 3 month follow up with Daksha and labNortHenry Ford West Bloomfield Hospital LaboratoryComment on above:3 month follow up with Daksha and lab Start: 04-05-2025 End: 25-02-3712PCV W Auto Differential panel - BloodCOMPLETE BLOOD COUNT AND DIFFERENTIAL Lab Routine Iron deficiency anemia, unspecified iron deficiency anemia type Thrombocytopenia (HCC) Stage 3b chronic kidney disease (HCC) Expected: 04/05/2025 (Approximate), Expires: 07/05/2025leveland ClinicComment on above:Expected: 04/05/2025 (Approximate), Expires: 07/05/2025Start: 04-05-2025 End: 94-23-1418Mzegrqvszcjdz metabolic 2000 panel - Serum or PlasmaCOMPREHENSIVE METABOLIC PANEL Lab Routine Iron deficiency anemia, unspecified iron deficiency anemia type Thrombocytopenia (HCC) Stage 3b chronic kidney disease (HCC) Expected: 04/05/2025 (Approximate), Expires: 07/05/2025leveland ClinicComment on above:Expected: 04/05/2025 (Approximate), Expires: 07/05/2025Start: 04-05-2025 End: 14-44-6758Asibnnfu [Mass/volume] in Serum or PlasmaFERRITIN Lab Routine Iron deficiency anemia, unspecified iron deficiency anemia type Thrombocytopenia (HCC) Stage 3b chronic kidney disease (HCC) Expected: 04/05/2025 (Approximate), Expires: 07/05/2025leveland ClinicComment on above:Expected: 04/05/2025 (Approximate), Expires: 07/05/2025Start: 04-05-2025 End: 53-23-4027Ynti and Iron binding capacity panel - Serum or PlasmaIRON AND TIBC Lab Routine Iron deficiency anemia, unspecified iron deficiency anemia type Thrombocytopenia (HCC) Stage 3b chronic kidney disease (HCC) Expected: 04/05/2025 (Approximate), Expires: 07/05/2025[facility] Work Phone: Comment on above:Expected: 04/05/2025 (Approximate), Expires: 07/05/2025Start: 04-05-2025 End: 76-52-7255TOTBKTMETUHG COUNTRETICULOCYTE COUNT Lab Routine Iron deficiency anemia, unspecified iron deficiency anemia type Thrombocytopenia (HCC) Stage 3b chronic kidney disease (HCC) Expected: 04/05/2025 (Approximate), Expires: 07/05/2025levelecu health edgecombe hospital ClinicComment on above:Expected: 04/05/2025 (Approximate), Expires: 07/05/2025Start: 03-06-2025 End: 76-15-7231Ychfqeo encounter procedureANA BIG LAKEComment on above:Arrived Start: 28-44-8669Qqjjhvtg blood countHemoglobin/HematocritPremier Health Atrium Medical Centertart: 52-67-9003Iseeryhuwd measurementSerum CreatinineCleKettering Health Hamiltontart: 60-13-8681Evhai screening for proteinDiabetes: Urine Protein ScreeningCox SouthStart: 01-06-2025 End: 17-36-9289Npihny-up bgryfrneg60/21/2025 2:30 PM EST Visit (SP) Office Hematology/Oncology [address] [place] [phone] Daksha Bridges, PAGayleC [address] [place] [address] 3 month follow up with labHematology/OncologyComment on above:3 month follow up with labStart: 01-06-2025 End: 74-53-5307Zinlvef encounter bkxzpocet15/21/2025 2:15 PM EST Office Visit [facility] [address] [place] [address] 3 month follow up with labNortHenry Ford [facility] Hospital LaboratoryComment on above:3 month follow up with labStart: 01-03-2025 End: 75-18-4447Sxxmacs encounter procedureNOMS [address] STATE ROUTEComment on above:ArrivedStart: 01-02-2025 End: 62-59-9114JMC W Auto Differential panel - BloodCOMPLETE BLOOD COUNT AND DIFFERENTIAL Lab Routine Iron deficiency anemia, unspecified iron deficiency anemia type Expected: 01/02/2025, Expires: 04/03/2025[facility] Work Phone: Comment on above:Expected: 01/02/2025, Expires: 04/03/2025Start: 01-02-2025 End: 36-20-4792Hwojqdezjdidw metabolic 2000 panel - Serum or PlasmaCOMPREHENSIVE METABOLIC PANEL Lab Routine Iron deficiency anemia, unspecified iron deficiency anemia type Expected: 01/02/2025, Expires: 04/03/2025leveland ClinicComment on above:Expected: 01/02/2025, Expires: 04/03/2025Start: 01-02-2025 End: 39-33-6138Gbgobbgc [Mass/volume] in Serum or PlasmaFERRITIN Lab Routine Iron deficiency anemia, unspecified iron deficiency anemia type Expected: 01/02, Expires: 04/03/2025[facility] ClinicComment on above:Expected: 01/02/2025, Expires: 04/03/2025Start: 01-02-2025 End: 00-56-1371Gudb and Iron binding capacity panel - Serum or PlasmaIRON AND TIBC Lab Routine Iron deficiency anemia, unspecified iron deficiency anemia type Expected:01/02/2025, Expires: 04/03/2025[facility] ClinicComment on above: Expected: 01/02/2025, Expires: 04/03/2025Start: 01-02-2025 End: 17-83-9239MZLLDCZWDCMJ COUNTRETICULOCYTE COUNT Lab Routine Iron deficiency anemia, unspecified iron deficiency anemia type Expected: 01/02/2025, Expires: 04/03/2025[facility] ClinicComment on above:Expected: 01/02/2025, Expires: 04/03/2025Start: 30-10-8828Rseethxp identified in Urine by CultureUrine Culture [facility]ertart: 76-29-5868Grgvn cultureMercy Health St. Vincent Medical Centertart: 12-05-2024 End: 93-15-8978Vffvpqq encounter ibvwkdvjq14/20/2025 8:40 AM EST Office Visit [facility] [place] [address] [place] [address] Queta Prieto, DIV[employer] HEAD [address] [place] [address] [facility] [facility] ROUTEStart: 11-16-2024 Advance Directive DiscussionAdvance Directive DiscussionClemercy health [facility] hospital ClinicStart: 01-01-2025Medicare Advantage Annual Wellness VisitMediBeaumont Hospital Annual Wellness VisitPremier Health Atrium Medical Centertart: 10-15-2024 End: 44-17-6592XAV W Auto Differential panel - BloodCOMPLETE BLOOD COUNT AND DIFFERENTIAL Lab Routine Iron deficiency anemia, unspecified iron deficiency anemia type Anemia of chronic renal failure, unspecified CKD stage Expected: 10/15/2024, Expires:01/14/2025[facility] Work Phone: Comment on above:Expected: 10/15/2024, Expires: 01/14/2025Start: 10-15-2024 End: 98-67-5115Grfsqrprolnbw metabolic 2000 panel - Serum or PlasmaCOMPREHENSIVE METABOLIC PANEL Lab Routine Iron deficiency anemia, unspecified iron deficiency anemia type Anemia of chronic renal failure, unspecified CKD stage Expected: 10/15/2024, Expires: 01/14/2025[facility] ClinicComment on above:Expected: 10/15/2024, Expires: 01/14/2025Start: 10-15-2024 End: 35-95-0523Kvqryzye [Mass/volume] in Serum or PlasmaFERRITIN Lab Routine Iron deficiency anemia, unspecified iron deficiency anemia type Anemia of chron ic renal failure, unspecified CKD stage Expected: 10/15/2024, Expires: 01/14/2025leveland ClinicComment on above:Expected: 10/15/2024, Expires: 01/14/2025Start: 10-15-2024 End: 92-31-6959Rklz and Iron binding capacity panel - Serum or PlasmaIRON AND TIBC Lab Routine Iron deficiency anemia, unspecified iron deficiency anemia type Anemia ofchronic renal failure, unspecified CKD stage Expected: 10/15/2024, Expires: 5C[facility] ClinicComment on above:Expected: 10/15/2024, Expires: 01/14/2025Start: 10-15-2024 End: 29-83-9806PPUNCVUGQEIK COUNTRETICULOCYTE COUNT Lab Routine Iron deficiency anemia, unspecified iron deficiency anemia type Anemia of chronic renal failure, unspecified CKD stage Expected: 10/15/2024, Expires: 5[facility] Comment on above:Expected: 10/15/2024, Expires: 01/14/2025Start: 10-07-2024 End: 00-53-9414Ltjpcf-up apdrluqlv45/22/2024 2:30 PM EST Visit (SP) Office Hematology/Oncology [address] [place] [address] [place], [place] [phone] Daksha Bridges PA-C [address] [place] [address] 3 month follow up with labHematology/OncologyComment on above:3 month follow up with labStart: 10-07-2024 End: 68-32-0633Fsyhnko encounter rfbbkwuyc77/22/2024 2:15 PM EST Office Visit [facility] [address] [place] [address] [place] [address] 3 month follow up with labNortHenry Ford West Bloomfield Hospital LaboratoryComment on above:3 month follow up with labStart: 08-16-2024 End: 10-16-3339Jjsqgdy event monitorCardiac event monitor Cardiac Services Routine Transient ischemic attack Palpitations Expected: 08/16/2024 (Approximate), Expires: 08/16/2026[facility] Work Phone: comment on above:Expected: 08/16/2024 (Approximate), Expires: 08/16/2026Start: 08-16-2024 End: 89-54-4263Epljorx encounter apseoadlv03/01/2024 9:00 AM EDT Office Visit [facility] [address] [place] [address] Conner Queta C, DIV[employer] [address] [place] [address] ArrivedNONM [place] [facility] ROUTEComment on above:ArrivedStart: 05-67-1549Gsqzdavjtubcl metabolic 2000 panel - Serum or PlasmaMercy Health St. Vincent Medical Centertart: 07-22-2024 End: 28-52-5179DbtjthmtdC[facility] Clinic Luther[facility] Hospital CenterStart: 58-63-0702Zyhmmyhopns of acetylcholine receptor antibodyMercy Health St. Vincent Medical Centertart: 70-04-6091BqiubrpdmMercy Health St. Vincent Medical Centertart: 90-95-7044Ykmvmjy ultrasonography of bilateral carotid arteriesUS carotid doppler [facility] Centertart: 36-08-9527EA Brain WO contrastMercy Health St. Vincent Medical Centertart: 04-01-3523RGF of headMR head/brain wo [facility] CenterStart: 08-89-2563QZ.doppler Carotid arteries - bilateralMercy Health St. Vincent Medical Centertart: 52-52-8804Mwcmugdk therapy procedureMercy Health St. Vincent Medical Centertart: 48-13-9471Douokhmc to neurologistMercy Health St. Vincent Medical Centertart: 97-40-7462Dwujbcfk to occupational therapist [facility] Centertart: 82-50-6376Ywydbriz to speech and language therapy serviceMercy Health St. Vincent Medical Centertart: 07-21-2024 [facility] CenterStart: 70-49-4593Zjpbzyou admissionMercy Health St. Vincent Medical Centertart: 53-20-7917Kpeib-19 Vaccine ( season) Covid-19 Vaccine ( season)[facility]ertart: 13-48-2899Nenzj-19 Vaccine ( season)Covid-19 Vaccine ( season)[facility]ertart: 74-94-2681Sxznrnihs vaccinationInfluenza Vaccine (#1)[facility]ertart: 07-15-2024 End: 93-13-7038Rxvztv-up dhjyulxpd46/30/2024 2:30 PM EDT Visit (SP) Office Hematology/Oncology [address] [place], [place] [phone] Daksha Bridges PA-C [address] [place] [address] 3 month follow up with labHematology/OncologyComment on above:3 month follow up with labStart: 07-15-2024 End: 30-15-4334Odayjrx encounter cocgnwymy67/30/2024 2:15 PM EDT Office Visit [facility] [address] [place] [address] 3 month follow up with labNortHenry Ford West [facility]field Hospital LaboratoryComment on above:3 month follow up with labStart: 07-11-2024 End: 10-52-4168NHQ W Auto Differential panel - BloodCOMPLETE BLOOD COUNT AND DIFFERENTIAL Lab Routine Iron deficiency anemia, unspecified iron deficiency anemia type Anemia of chronic renal failure, unspecified CKD stage Thrombocytopenia (HCC) Expected: 07/11/2024 (Approximate), Expires: 10/10/2024 [facility] Work Phone: Comment on above:Expected: 07/11/2024 (Approximate), Expires: 10/10/2024Start: 07-11-2024 End: 94-60-2503Cmyagwhlqmrpm metabolic 2000 panel - Serum or PlasmaCOMPREHENSIVE METABOLIC PANEL Lab Routine Iron deficiency anemia, unspecified iron deficiency anemia type Anemia of chronic renal failure, unspecified CKD stage Thrombocytopenia (HCC) Expected: 07/11/2024 (Approximate), Expires: 10/10/2024 [facility] SystemComment [facility] above:Expected: 07/11/2024 (Approximate), Expires: 10/10/2024Start: 07-11-2024 End: 92-28-3967Niighznf [Mass/volume] in Serum or PlasmaFERRITIN Lab Routine Iron deficiency anemia, unspecified iron deficiency anemia type Anemia of chron ic renal failure, unspecified CKD stage Thrombocytopenia (HCC) Expected: 07/11/2024 (Approximate), Expires: 10/10/2024[facility] ClinicComment on above: Expected: 07/11/2024 (Approximate), Expires: 10/10/2024Start: 07-11-2024 End: 60-79-2184Bnmm and Iron binding capacity panel - Serum or PlasmaIRON AND TIBC Lab Routine Iron deficiency anemia, unspecified iron deficiency anemia type Anemia ofchronic renal failure, unspecified CKD stage Thrombocytopenia (HCC) Expected: 07/11/2024 (Approximate), Expires: 10/10/2024[facility] ClinicComment on above:Expected: 07/11/2024 (Approximate), Expires: 10/10/2024Start: 07-11-2024 End: 42-79-0985FFJWQQJLAPIP COUNTRETICULOCYTE COUNT Lab Routine Iron deficiency anemia, unspecified iron deficiency anemia type Anemia of chronic renal failure, unspecified CKD stage Thrombocytopenia (HCC) Expected: 07/11/2024 (Appro ximate), Expires: 10/10/2024[facility] ClinicComment on above:Expected: 07/11/2024 (Approximate), Expires: 10/10/2024Start: 04-30-2024 End: 67-49-7946GRO W Auto Differential panel - BloodCBC + DIFF Lab Routine Stage 3b chronic kidney disease (HCC) Iron deficiency anemia secondary to inadequate dietary iron intake Expected: 04/30/2024 (Approximate), Expires: 07/30/2024 [facility] Work Phone: Comment on above:Expected: 04/30/2024 (Approximate), Expires: 07/30/2024Start: 04-30-2024 End: 50-11-5233Mxgnppagjhcxj metabolic 2000 panel - Serum or PlasmaCOMP METABOLIC PANEL Lab Routine Stage 3b chronic kidney disease (HCC) Iron deficiency anemia secondary to inadequate dietary iron intake Expected: 04/30/2024 (Approximate), Expires: 07/30/2024[facility] Work Phone: Comment on above:Expected: 04/30/2024 (Approximate), Expires: 07/30/2024Start: 04-30-2024 End: 67-36-9520Jqralgii [Mass/volume] in Serum or PlasmaFERRITIN BLD Lab Routine Stage 3b chronic kidney disease (HCC) Iron deficiency anemia secondary to i nadequate dietary iron intake Expected: 04/30/2024 (Approximate), Expires: 07/30/[address]24[facility] Work Phone: Comment on above:Expected: 04/30/2024 (Approximate), Expires: 07/30/2024Start: 04-30-2024 End: 21-56-0940Ofgc and Iron binding capacity panel - Serum or PlasmaIRON + TIBC Lab Routine Stage 3b chronic kidney disease (HCC) Iron deficiency anemia secondary to inadequate dietary iron intake Expected: 04/30/2024 (Approximate), Expires: 07/30/[address]24[facility] Work Phone: Comment on above:Expected: 04/30/2024 (Approximate), Expires: 07/30/2024Start: 21-32-4150Cocybsd Directive DiscussionAdvance Directive DiscussionPremier Health Atrium Medical Centertart: 15-32-9108Zraebixtex Health Screening Behavioral Health ScreeningPremier Health Atrium Medical Centertart: 15-62-0906Tztynzjwqm AssessmentDepression AssessmentPremier Health Atrium Medical Centertart: 08-01-2023 End: 95-80-6932PCW W Auto Differential panel - BloodCBC + DIFF Lab Routine Iron deficiency anemia secondary to inadequate dietary iron intake Expected: 08/01/2023 (Approximate), Expires: 10/01/[address]23[facility] Work Phone: Comment on above:Expected: 08/01/2023 (Approximate), Expires: 10/01/2023Start: 08-01-2023 End: 64-54-0388Jnvsubkuwdmxx metabolic 2000 panel - Serum or PlasmaCOMP METABOLIC PANEL Lab Routine Iron deficiency anemia secondary to inadequate dietary iron intakeExpected: 08/01/2023 (Approximate), Expires: 10/01/2023 [facility] Work Phone: Comment on above:Expected: 08/01/2023 (Approximate), Expires: 10/01/2023Start: 08-01-2023 End: 17-71-0310Csmjaogx [Mass/volume] in Serum or PlasmaFERRITIN BLD Lab Routine Iron deficiency anemia secondary to inadequate dietary iron intake Expected: 08/01/2023 (Approximate), Expires: 10/01/[address]23[facility] Work Phone: Comment on above:Expected: 08/01/2023 (Approximate), Expires: 10/01/2023Start: 08-01-2023 End: 50-14-2656Dcqu and Iron binding capacity panel - Serum or PlasmaIRON + TIBC Lab Routine Iron deficiency anemia secondary to inadequate dietary iron intake Expected: 08/01/2023 (Approximate), Expires: 10/01/[address]23[facility] Work Phone: Comment on above:Expected: 08/01/2023 (Approximate), Expires: 10/01/2023Start: 07-24-2023 End: 94-57-7603MDH W Auto Differential panel - BloodCBC + DIFF Lab Routine Iron deficiency anemia secondary to inadequate dietary iron intake Stage 3b chronic kidney disease (HCC) Expected: 07/24/2023, Expires: 09/23/[address]23[facility] Work Phone: Comment on above:Expected: 07/24/2023, Expires: 09/23/2023Start: 07-24-2023 End: 24-74-4548Wjswmmmmlbsym metabolic 2000 panel - Serum or PlasmaCOMP METABOLIC PANEL Lab Routine Iron deficiency anemia secondary to inadequate dietary iron intakeStage 3b chronic kidney disease (HCC) Expected: 07/24/2023, Expires: 09/23/[address]23[facility] Work Phone: Comment on above:Expected: 07/24/2023, Expires: 09/23/2023Start: 07-24-2023 End: 69-68-4187Bzniaiwq [Mass/volume] in Serum or PlasmaFERRITIN BLD Lab Routine Iron deficiency anemia secondary to inadequate dietary iron intake Stage 3b chronic kidney disease (HCC) Expected: 07/24/2023, Expires: 09/23/[address]23[facility] Work Phone: Comment on above:Expected: 07/24/2023, Expires: 09/23/2023Start: 07-24-2023 End: 84-16-1622Xdjm and Iron binding capacity panel - Serum or PlasmaIRON + TIBC Lab Routine Iron deficiency anemia secondary to inadequate dietary iron intake Stage 3bchronic kidney disease (HCC) Expected: 07/24/2023, Expires: 09/23/2023 [facility] Work Phone: Comment on above:Expected: 07/24/2023, Expires: 09/23/2023Start: 95-59-8882Aabwy-19 Vaccine ()Covid-19 Vaccine ()[facility]ertart: 14-47-7975Vzozryuvk vaccination [facility]ertart: 05-09-2023 End: 74-53-6040TQK W Auto Differential panel - BloodCBC + DIFF Lab Routine Iron deficiency anemia secondary to inadequate dietary iron intake Expected: 05/09/2023 (Approximate), Expires: 07/09/[address]23[facility] Work Phone: Comment on above:Expected: 05/09/2023 (Approximate), Expires: 07/09/2023Start: 05-09-2023 End: 68-58-7252Apmckbikwbkrj metabolic 2000 panel - Serum or PlasmaCOMP METABOLIC PANEL Lab Routine Iron deficiency anemia secondary to inadequate dietary iron intakeExpected: 05/09/2023 (Approximate), Expires: 07/09/2023 [facility] Work Phone: Comment on above:Expected: 05/09/2023 (Approximate), Expires: 07/09/2023Start: 05-09-2023 End: 01-13-1759Cifmfizz [Mass/volume] in Serum or PlasmaFERRITIN BLD Lab Routine Iron deficiency anemia secondary to inadequate dietary iron intake Expected: 05/09/2023 (Approximate), Expires: 07/09/2023[facility] Work Phone: Comment on above:Expected: 05/09/2023 (Approximate), Expires: 07/09/2023Start: 05-09-2023 End: 00-80-0007Rods and Iron binding capacity panel - Serum or PlasmaIRON + TIBC Lab Routine Iron deficiency anemia secondary to inadequate dietary iron intake Expected: 05/09/2023 (Approximate), Expires: 07/09/2023[facility] Work Phone: Comment on above:Expected: 05/09/2023 (Approximate), Expires: 07/09/2023Start: 58-34-3800ZvuqlfbldMercy Health St. Vincent Medical Centertart: 32-82-7646Rkrbwtsi therapy procedureMercy Health St. Vincent Medical Centertart: 75-67-8311Oncinviv admissionMercy Health St. Vincent Medical Centertart: 03-11-[address] Vincent Medical Centertart: 02-09-2023 End: 33-67-8985SKF W Auto Differential panel - BloodCBC + DIFF Lab Routine Iron deficiency anemia secondary to inadequate dietary iron intake Expected: 02/09/2023 (Approximate), Expires: 04/11/2023[facility] Work Phone: Comment on above:Expected: 02/09/2023 (Approximate), Expires: 04/11/2023Start: 02-09-2023 End: 57-73-6288Mtvfwizoybfwg metabolic 2000 panel - Serum or PlasmaCOMP METABOLIC PANEL Lab Routine Iron deficiency anemia secondary to inadequate dietary iron intakeExpected: 02/09/2023 (Approximate), Expires: 04/11/2023 [facility] Work Phone: Comment on above:Expected: 02/09/2023 (Approximate), Expires: 04/11/2023Start: 02-09-2023 End: 39-58-2751Fvfjbhsd [Mass/volume] in Serum or PlasmaFERRITIN BLD Lab Routine Iron deficiency anemia secondary to inadequate dietary iron intake Expected: 02/09/2023 (Approximate), Expires: 04/11/2023[facility] Work Phone: Comment on above:Expected: 02/09/2023 (Approximate), Expires: 04/11/2023Start: 02-09-2023 End: 28-94-9461Hcbf and Iron binding capacity panel - Serum or PlasmaIRON + TIBC Lab Routine Iron deficiency anemia secondary to inadequate dietary iron intake Expected: 02/09/2023 (Approximate), Expires: 04/11/2023[facility] Work Phone: Comment on above:Expected: 02/09/2023 (Approximate), Expires: 04/11/2023Start: 02-06-2023 End: 93-90-7487YII W Auto Differential panel - BloodCBC + DIFF Lab Routine Iron deficiency anemia secondary to inadequate dietary iron intake Expected: 02/06/2023, Expires: 04/08/2023[facility] Work Phone: Comment on above:Expected: 02/06/2023, Expires: 04/08/2023Start: 02-06-2023 End: 60-95-4919Rlwwarlehmdnc metabolic 2000 panel - Serum or PlasmaCOMP METABOLIC PANEL Lab Routine Iron deficiency anemia secondary to inadequate dietary iron intakeExpected: 02/06/2023, Expires: 04/08/2023[facility] Work Phone: Comment on above:Expected: 02/06/2023, Expires: 04/08/2023Start: 02-06-2023 End: 19-96-2109Etuc and Iron binding capacity panel - Serum or PlasmaIRON + TIBC Lab Routine Iron deficiency anemia secondary to inadequate dietary iron intake Expected: 02/06/2023, Expires: 04/08/2023[facility] Work Phone: Comment on above:Expected: 02/06/2023, Expires: 04/08/2023Start: 21-18-3677WnzukldgnMercy Health St. Vincent Medical Centertart: 11-27-2022 End: 33-22-0456RWL W Auto Differential panel - BloodCBC + DIFF Lab Routine Anemia, unspecified type Iron deficiency anemia secondary to inadequate dietary iron intake Expected: 11/27/2022, Expires: 01/27/2023[facility] Work Phone: Comment on above:Expected: 11/27/2022, Expires: 01/27/2023Start: 11-27-2022 End: 06-59-1484Nwzdwggkolind metabolic 2000 panel - Serum or PlasmaCOMP METABOLIC PANEL Lab Routine Anemia, unspecified type Iron deficiency anemia secondary to inadequate dietary iron intake Expected: 11/27/2022, Expires: 01/27/2023[facility] Work Phone: Comment on above:Expected: 11/27/2022, Expires: 01/27/2023Start: 11-27-2022 End: 34-32-6204Cqbncfjj [Mass/volume] in Serum or PlasmaFERRITIN BLD Lab Routine Anemia, unspecified type Iron deficiency anemia secondary to inadequate dietary iron intake Expected: 11/27/2022, Expires: 01/27/2023[facility] Work Phone: Comment on above:Expected: 11/27/2022, Expires: 01/27/2023Start: 11-27-2022 End: 61-42-1555Dmsi and Iron binding capacity panel - Serum or PlasmaIRON + TIBC Lab Routine Anemia, unspecified type Iron deficiency anemia secondary to inadequate dietary iron intake Expected: 11/27/2022, Expires: 01/27/2023 [facility] Work Phone: Comment on above:Expected: 11/27/2022, Expires: 01/27/2023Start: 85-18-1240CZGHUKF DIRECTIVE DISCUSSIONADVANCE DIRECTIVE DISCUSSIONPremier Health Atrium Medical Centertart: 20-82-2729WFTSYASELO ASSESSMENTDEPRESSION ASSESSMENTPremier Health Atrium Medical Centertart: 10-29-2022 End: 29-30-1241KARVLYRULZ PROTEIN, SERUM (BLOOD)MONOCLONAL PROTEIN, SERUM (BLOOD) Lab Routine Anemia, unspecified type Expected: 10/29/2022 (Approximate), Expires: 12/29/2022[facility] Work Phone: Comment on above:Expected: 10/29/2022 (Approximate), Expires: 12/29/2022Start: 10-29-2022 End: 22-34-2130XKJAZIA ELECTROPHORESIS SERUM W/INTERPPROTEIN ELECTROPHORESIS SERUM W/INTERP Lab Routine Anemia, unspecified type Expected: 10/29/2022 (Ap proximate), Expires: 12/29/2022[facility] Work Phone: Comment on above:Expected: 10/29/2022 (Approximate), Expires: 12/29/2022Start: 10-01-2022 End: 27-88-2700Wnscwppkj (Vitamin B12) [Mass/volume] in Serum or [facility] Work Phone: Comment on above:Expected: 10/01/2022, Expires: 12/01/2022Start: 10-01-2022 End: 53-30-2101Dpuwjent [Mass/volume] in Serum or [facility] Work Phone: Comlgaq on above:Expected: 10/01/2022, Expires: 10/01/2023Start: 10-01-2022 End: 10-89-6082Kdgmqt [Mass/volume] in Serum or [facility] Work Phone: Comment on above:Expected: 10/01/2022, Expires: 12/01/2022Start: 10-01-2022 End: 25-04-6088Azks and Iron binding capacity panel - [facility] or [facility] Work Phone: Comweuy on above:Expected: 10/01/2022, Expires: 10/01/2023Start: 10-01-2022 End: 52-50-0150VFCDTMO ELECT RND UR W/INTERPCMer[facility] Health St[facility] Work Phone: Comment on above:Expected: 10/01/2022, Expires: 12/01/2022Start: 10-01-2022 End: 72-49-8345Ddmg [Mass/volume] in Serum or [facility] Work Phone: Comgrcr on above:Expected: 10/01/2022, Expires: 12/01/2022Start: 11-39-8359Jtbuqawjy vaccinationINFLUENZA (#1)[facility] Start: 81-61-5504XWHTCAS DIRECTIVE DISCUSSIONADVANCE DIRECTIVE DISCUSSION [facility]ertart: 37-52-2868LSLJLFZJJG ASSESSMENTDEPRESSION ASSESSMENT [facility]ertart: 28-31-8700CXZLL-19 VACCINE (4 - Booster for Pfizer series)COVID-19 VACCINE (4 - Booster for Pfizer series)[facility]ertart: 95-86-9781AQADT-19 VACCINE (4 - Pfizer series)COVID-19 VACCINE (4 - Pfizer series)[facility]art: 86-69-8610Ockziogxguom Vaccine: 50+ (2 of 2 - PCV) Pneumococcal Vaccine: 50+ (2 of 2 - PCV)[facility]art: 08-16-2019 Pneumococcal Vaccine: 65+ (2 - PCV)Pneumococcal Vaccine: 65+ (2 - PCV)[facility]art: 85-34-5989Pblnbuaqanvy Vaccine: 65+ (2 of 2 - PCV)Pneumococcal Vaccine: 65+ (2 of 2 - PCV)[facility]ertart: 59-10-5659Yfxaledippur Vaccine: 65+ Years (2 of 2 - PCV)Pneumococcal Vaccine: 65+ Years (2 of 2 - PCV) [facility]: 48-26-8157AMZWITSGCPMY: 65+ (2 - PCV)PNEUMOCOCCAL: 65+ (2 - PCV)[facility]ertart: 28-36-4200XFOW DENSITYBONE DENSITYAvita Health System Start: 97-93-2925Nepu Density ScreeningBone Density ScreeningAvita Health System Start: 92-96-2814ZPPHRYKCSVYU: 65+ (1 - PCV)PNEUMOCOCCAL: 65+ (1 - PCV)[facility] Centertart: 96-98-4281Ridwzbmzw for osteoporosisBone Density Screening [facility]ertart: 87-84-4728MAR Vaccine (1 - 1-dose 60+ series)RSV Vaccine (1 - 1-dose 60+ series)[facility]ertart: 02-91-9203ICPSVIXE VACCINE (1 of 2)SHINGRIX VACCINE (1 of 2)[facility]art: 04-22-6952EUTXGNDRO (FIT-DNA) COLOGUARD (FIT-DNA)[facility]ertart: 48-19-6003HniiipcmlkwTVJYACZPACN [facility]ertart: 82-02-2170QLQKVMVVXN CANCER SCREENINGCOLORECTAL CANCER SCREENINGPremier Health Atrium Medical Centertart: 47-38-1209VS COLONOGRAPHYCT COLONOGRAPHY [facility]ertart: 36-59-4158JMURFVZJ SCREENDIABETES SCREENAvita Health System Start: 41-35-2546VHOEE OCCULT BLOODFECAL OCCULT BLOODPremier Health Atrium Medical Centertart: 89-52-9102Geqmv 1996 panel - Serum or PlasmaLipid ScreeningAvita Health System Start: 32-66-7133Quddf panelLipid ScreeningPremier Health Atrium Medical Centertart: 1993 LIPID SCREENLIPID SCREENPremier Health Atrium Medical Centertart: 79-33-3978Reablogyn for malignant neoplasm of colonPremier Health Atrium Medical Centertart: 27-60-7295WUUAEVOEZDJTKKZTZMRYOYIQJA [facility]ertart: 92-60-8544GksfyotptcjPivdnenzl ClinicStart: 1967 Urine microalbumin profilePremier Health Atrium Medical Centertart: 40-78-4927Ptwjk screening for proteinDiabetes: Urine Protein ScreeningCox SouthStart: 24-89-3829Jzhhoi PCP Team Chronic Disease VisitAnnual PCP Team Chronic Disease VisitPremier Health Atrium Medical Centertart: 17-79-9006Dkthfqw ScreeningAnxiety ScreeningPremier Health Atrium Medical Centertart: 68-22-3682Enaycpkjsk ScreeningDepression ScreeningPremier Health Atrium Medical Centertart: 20-36-4351OOILNHCNJ C SCREENINGHEPATITIS C SCREENINGPremier Health Atrium Medical Centertart: 86-45-3149Saespkfze C screeningHepatitis C ScreeningPremier Health Atrium Medical Centertart: 44-82-8225Wwoncqwb screeningDiabetes: Retinopathy ScreeningCox SouthStart: 12-26-5951GHIGG-19 VACCINE (#1)COVID-19 VACCINE (#1)[facility]ertart: 94-51-8414Lcvjmwzpgh A1c measurementDiabetes: Hemoglobin J8VUHRPCox South Start: 07-96-2822Wndpuyfbr for malignant neoplasm of colonCox South Acetylcholine receptor blocking Ab/Acetylcholine Ab.total in SerumPremier Health Atrium Medical CenterBacteria identified in Urine by CulturePremier Health Atrium Medical CenterMONOCLONAL PROTEIN, SERUM (BLOOD)MONOCLONAL PROTEIN, SERUM (BLOOD) Lab Routine Anemia, unspecified type 10/01/2022 12:19 PM [facility] Work Phone: Muscle specific receptor tyrosine kinase Ab [Units/volume] in Serum by ImmunoassayPremier Health Atrium Medical CenterPatient EducationCleveland Clinic Lutheran Hospital Ctr Work Phone: Patient referralCleveland Clinic Lutheran Hospital Ctr Work Phone: PROTEIN ELECTROPHORESIS SERUM W/INTERPPROTEIN ELECTROPHORESIS SERUM W/INTERP Lab Routine Anemia, unspecified type 10/01/2022 12:19 PM [facility] Work Phone: Renal function 1999 panel - Serum or PlasmaPremier Health Atrium Medical CenterRenal function 1999 panel - Serum or [facility] HospitalRen[facility] function 1999 panel - Serum or [facility] HospitalRenal function 1999 panel - Serum or [facility] HospitalUS Kidney - bilateralPremier Health Atrium Medical Center Varicella zoster virus DNA [Presence] in Cerebral spinal fluid by DIPESH with probe detectionSouthern Hills Medical Center Immunizations Immunization DateImmunizationNotesCare GobjgpbkJlwjizyx69-66-5813pcszmfwbb virus vaccine, unspecified formulationVerónica Ugarte [phone]-AamrcMartins Ferry Hospital Tffpcv57-86-7360 influenza (HD-IIV4) vaccine, age 65+ yr, high dose, quadrivalent, PF (FLUZONE HIGH-DOSE)Daksha Bridges PA-C Work Phone: [facility] SystemIuajnc70-01-7169eubxuahxy virus vaccine, unspecified formulationNisa Shepherd [phone]-AfsoaMain Campus Medical Center Digestive Qhsyvr56-78-9217 influenza virus vaccine, unspecified formulationNisa Shepherd [phone]-AtpekMartins Ferry Hospital Qvuzxm16-90-9706 influenza, high-dose, quadrivalent vaccine (FLUZONE HIGH DOSE QUADRIVALENT)Henry Walker MD Work Phone: [facility] SystemTlfxca52-73-5343awyitwqvb virus vaccine, unspecified formulationNisa Shepherd [phone]-AaxkpLima [facility] Hospital11-11-2021 influenza, high-dose, quadrivalent vaccine (FLUZONE HIGH DOSE QUADRIVALENT)Henry Walker MD Work Phone: [facility] SystemXfktqm37-20-0958MBWY-CbR-2 (COVID-19) mRNA BNT-162b2 Yoan Shepherd [phone]-WmrqcMartins Ferry Hospital HealthComment on above:Result Comment: 2022-09-18: EXG7438-71-8262MHYX-WtD-4 (COVID-19) mRNA BNT- 162b2 Yoan Ruth [phone]-PiuvrLima Memorial Hospital03-01-2021 SARS-CoV-2 (COVID-19) mRNA BNT-162b2 Yoan Chatmanmetz [phone]-MhfvdLima Memorial Hospital10-01-2018 influenza nasal, unspecified formulationHenry Walker MD Work Phone: [facility] SystemZbontx34-68-4379rhwhdozfe virus vaccine, unspecified formulationNisa Shepherd [phone]-GreozLima Memorial Hospital10-01-2018 influenza, injectable, quadrivalent, preservative freeDaksha Bridges PA-C Work Phone: [facility] SystemSpvtoa45-36-3804etrzpwspcbko polysaccharide vaccine, 23 valentBemesha Shepherd [phone]-HxnfrLima Memorial Hospital11-03-2016 influenza virus vaccine, unspecified formulationNisa Shepherd [phone]-GgnlcLima Memorial Hospital11-03-2016 influenza, high dose seasonal, preservative-freeHenry Walker MD Work Phone: [facility] SystemNmrual94-60-7045hlacrcojr virus vaccine, unspecified formulationNisa Shepherd [phone]-UwngsMartins Ferry Hospital Baoljo80-69-7213 influenza, seasonal, Shamika Walker MD Work Phone: [facility] Payers DatePayer CategoryPayerPolicy [id number]-uuo [id number] [id number] 2024Medicare (Managed Care)[facility] [id number] Health InsuranceNOVANT HEALTHO Member Subscriber Plan / Payer (Effective 2023-Present) Name: Anh Tejeda Member ID: [id number] Relation to Subscriber: Self Name: Anh Tejeda Subscriber ID: [id number] Payer ID: Not on file Group ID: Not on file Type: HMO Address: [address] [place] [id number] 2024Medicare [id number] [id number].3.71756[id number] 077014qc-u18t-976j-v6ob-2576l[id number] 2.16.840.1.246296.3.579.[id number] 2.16.840.1.091528.3.579.2.96150-92-0434Jrnuouc3491151 2.16.840.1.166902.3.579.2.10247-00-2503Wsoqakk6253724 2.16.840.1.458940.3.579.2.57834-60-4635Azjctsc6057720 2.16.840.1.589187.3.579.2.22946-18-9681Dfhmtdf6273844 2.16.840.1.440450.3.579.2.[id number] 2.16.840.1.683655.3.579.2.95819-78-6586Sstmitb846862583 2.16.840.1.120498.3.579.2.09102-33-1938Woamwfz77625937 2.16.840.1.431003.3.579.2.08820-74-0485Fmzsrhk28431799 2.16.840.1.209267.3.579.2.07958-53-5559Pfgqlud48202167 2.16.840.1.480946.3.579.2.22755-32-2172Mvzletj632402526 2.16.840.1.641740.3.579.2.78182-58-6816Xbzslar928366510 2.16.840.1.146788.3.579.2.53635-10-7804Vufrtxr306982629 2..1.112167.3.579.2.95493-94-0291Bbqkgok75472136 2..1.800706.3.579.2.449512-97-7539Phyckfk1658608 2..1.256445.3.579.2.068762-91-8660Gwshfqc4661996 2..1.872359.3.579.2.059314-57-6759Dgyfxvq6749452 2..1.149058.3.579.2.152597-36-1233Estnhgi7226178 2..1.470907.3.579.2.468970-88-7416Rnjxtwz47535501 2..1.588127.3.579.2.35469-47-0576Rdscvju29214667 2..1.29[id number]/HFA/FAP [id number] 17r2984u-616v-027y-8ff6-albv9v4e1k22Youhlkx55010699 2..1.703959.3.579.2.399Xwslujc36321684 2..1.852418.3.579.2.531 Ivsniyh38427185 2..1.939344.3.579.2.890Iwjadcb39074824 2.16.840.1.624037.3.579.2.536Atkhnsx06611977 2.16.840.1.235160.3.579.2.531 Dnmjkrj57330098 2.16.840.1.838074.3.579.2.420Ygwhzjg27593314 2.16.840.1.314344.3.579.2.264Bgpgeae95543328 2.16.840.1.489062.3.579.2.531 Bfgnyzw49958727 2.16.840.1.224908.3.579.2.531 Social History DateTypeDetailFacilityStart: 12-26-2017 End: 27-17-6065Lmrdzty smoking status NHISNever smoked tobacco (finding) [facility] CtrStart: 66-43-6691Wer Assigned At [facility]FeKettering HealthTobacco smoking statusNeverMain [facility] Start: 05-01-2023 End: 27-62-7509Wqe Assigned At [facility] Start: 09-26-2022 End: 18-34-9144Piglrju use and exposureSmokeless tobacco non-userPremier Health Atrium Medical Centertart: 51-04-4077Almsrew intakeEx-drinker (finding)[facility] Centertart: 15-43-2272Bbv Assigned At BirthNot on fileAvita Health SystemHistory of tobacco use Passive smokerPremier Health Atrium Medical Centertart: 10-01-2022 End: 49-38-7472Oxryyuk intakeLifetime non-drinker (finding)[facility] Start: 09-21-2022 End: 65-58-6452Fpusxrad to SARS-CoV-2 (event)Not surePremier Health Atrium Medical Centertart: 05-01-2023 End: 04-01-4426Mpdciqn of Social functionPremier Health Atrium Medical Centertart: 03-29-2024 End: 45-37-7124Cnrrxsrbw beverage intakeDeferNONM HealthcareStart: 02-09-2024 Alcohol Commentcaffeine intake: 1-2 cups per dayNONM HealthcareStart: 01-11-2024 Gender identityIdentifies as female gender (finding)[facility] HealthcareStart: 27-92-5648Hiabhu orientationChoose not to discloseNONM HealthcareStart: 01-19-2022 End: 48-17-0461QxwTnhmcc (finding)[facility] Medical Centerexual OrientationWilson Memorial Hospital Goals DatePatient GoalDesired Activity/State Functional Status NygyEgirwpunrgVokzibKgjhdoft34-47-4345Tqkyyzjzql StatusN/[facility] Zsewbi24-28-5353Xappxfnyeu StatusN/[facility] Hrjjab04-14-3785Omomwlrdpf statusPatient at BaselineU[facility] Work Phone: [phone]) [phone]sbqlqhhka statusPatient at Baseline [facility] Work Phone: 1(886) 220-732805988070-05-1732Wqfmiajnpb StatusN/[facility] Hoczva32-94-3308Htboqhzrqx StatusN/[facility] Bqbpbv49-30-2478Bxlidaohin StatusN/[facility] Kchbrk04-11-4908Yhwyfaacxm statusPatient at BaselineU[facility] Work Phone: [phone]) 581-985804992182-54-5492Tmbhztgxlr statusDisability Status [facility] at BaselineU[facility] Work Phone: 1(517) [phone]zrqxzgwya StatusN/[facility] Fmmagi36-78-1950Aljpscimpk StatusNoWilson Memorial Hospital07-28-2022Functional StatusN/[facility] Mental Status IawuVuavfedvvwIkmcxqYlqxoeji61-63-8574Lqmmbfpql functionCognitive Status [facility] BaselineU[facility] Work Phone: 1(527) 698-834609-148980-78-5427Jxongfvrp functionCognitive Status [facility] at BaselineU[facility] Work Phone: 1(917) 165-575304-142302-98-6654Odzorbigy functionCognitive Status Patient at BaselineC[facility] Work Phone: Clinical Notes 06-12-2022 to 08-07-2025 Note Date & OnkqLpquWoxvryrt95-46-7849 NoteHNO ID: [id number] Author: DAKSHA BRIDGES PA-C Service: ? Author Type: Physician Escrow Secretary Type: Progress Notes Filed: 08/07/2025 10:50 Note Text: Hematology Progress Note PATIENT NAME: Anh Tejeda CLINIC NO.: [id number] ATTENDING PHYSICIAN: Henry Walker MD DATE OF SERVICE: 08/07/2025 This note was copied from prior heme/onc encounter from 04/25/2025. The patient's medications, allergies, past medical/surgical hx, family hx, ROS, and physical exam have all been reviewed and updated as appropriate. The interval history and assessment/plan content have been modified and are specific to today's (08/07/2025) purpose for the visit. CHIEF COMPLAINT: Follow up for anemia Diagnosis: NAINA Stage 3a CKD Treatment: Venofer x 3 doses 10/2022, again in January 2024 Interval History: Anh returns for 3 month follow up. She has been very fatigued lately. She's nodding off during the day more. She does have sleep apnea and is wearing her CPAP machine religiously. She feels like overall she does get good sleep. No significant bleeding. No cravings. She just feels weak. She is on a new cream, bactroban, from her PCP for a wound on her leg that isn't healing well. Current Outpatient Medications Medication Sig vit B complex no.12/niacin,B3, (VITAMIN B COMPLEX NO.12-NIACIN ORAL) Vitamin B 12 baclofen 10 mg tablet Take 5 mg by mouth once daily. loratadine (CLARITIN) 5 mg/5 mL syrup Take 5 mg by mouth as needed for cold/allergy symptoms. amoxicillin-clavulanate potassium (AUGMENTIN) 875-125 mg per tablet pioglitazone (ACTOS) 15 mg tablet diphenhydrAMINE HCl (CHILDREN'S BENADRYL ALLERGY) 12.5 mg chewable tablet 25 mg. FARXIGA 10 mg tablet resmetirom (REZDIFFRA) 80 mg tablet once daily. allopurinol (ZYLOPRIM) 300 mg tablet 300 mg. JANUVIA 50 mg tablet Take 1 tablet by mouth every afternoon. albuterol HFA (PROVENTIL HFA, VENTOLIN HFA) 90 mcg/actuation inhaler magnesium oxide 400 mg magnesium tab Take [...] Drug use: Not Currently REVIEW OF SYSTEMS +fatigue, generalized weakness PHYSICAL EXAMINATION: BP 121/59 Pulse 79 Temp 36.5 ?C (97.7 ?F) (Temporal) Resp 16 Wt 100.9 kg (222 lb 7.1 oz) SpO2 96% BMI 40.42 kg/m? ECOG PS: 1 No [...] 17 WBC Date Value Ref Range Status 08/07/2025 5.85 3.70 - 11. (more content not included)...[facility]08-20-2025 Evaluation note* Diagnosis Onset Date Resolution Status Admit Date Anemia of renal disease acuteJuly 05, 2025 9:42amChronic kidney disease, stage III (moderate)acute July 05, 2025 9:42amHyperlipidemiaacuteAugust 2024 9:42am HypomagnesemiaacuteAugust 2024 9:42amSecondary hyperparathyroidismacute July 05, 2025 9:42amType 2 diabetes mellitus with diabetic chronic kidney diseaseacuteAugus2024 9:42amHypertensive chronic kidney disease with stage 1 through stage 4 chronic kichronicAugust 2024 9:42am [facility] Work Phone: 1(455) 102-488208-20-2025 Evaluation note* Diagnosis Onset Date Resolution Status Admit Date Anemia of renal disease acuteAugus5 9:42amChronic kidney disease, stage III (moderate)acute July 05, 2025 9:42amHyperlipidemiaacuteAugust 2024 9:42am HypomagnesemiaacuteAugus2024 9:42amSecondary hyperparathyroidismacute July 05, 2025 9:42amType 2 diabetes mellitus with diabetic chronic kidney diseaseacuteAugus2024 9:42amHypertensive chronic kidney disease with stage 1 through stage 4 chronic kichronicAugust 2024 9:42amCarpal tunnel syndrome, rightacuteSept2024 9:10amDegenerative disc disease, lumbar acuteSept2024 9:10amLacunar infarctionacuteSept2024 9:10am PolyneuropathyacuteSept2024 9:10amSyncopeacuteSept2024 9:10am [facility] Work Phone: 1(603) 444-443307-23-2025 History of Present illness Narrative* Jenny Watson MA - 06/07/2025 1:30 PM EDT Patient was in today to have hearing aids checked. She was accompanied by her brother, Rafael who states she cannot hear anything. Patient has indicated in the past that her family complains she cannot hear. When patient arrived at the appointment she did not have aids fully inserted in her ear. Icleaned them and checked them. I added retention [...] family situations. Patient indicated understanding. I did bereavement counselor the patient and her brother on processing and getting patient's attention before talking to her. She will continue as needed. Cosigned by BETH Hodgson at 06/08/2025 11:43 AM EDT documented in this encounterCox SouthYucljhrjiz38-74-2176 History of Present illness Narrative* Daksha Bridges PA-C - 04/25/2025 11:00 AM EDT Hematology Progress Note PATIENT NAME: Anh Tejeda [facility] NO.: [id number] ATTENDING PHYSICIAN: Henry Walker MD DATE OF [...] the past few weeks. Denies issues with appetite,early satiety, or night sweats. Not currently on [...] Range Status 04/18/2025 6.4 % Final Abs [place] Date Value Ref Range Status 04/18/2025 0.36 [...] monitoring of renal function. - Follow-up with electronics processor Dr. Giles in June. 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 Should this worsen, especially in the setting of anemia with normal iron stores, would need to consider further workup. Platelets [id number] 4. Polyneuropathy: negative SPEP/MPA in 2021. Some improvement with carpal tunnel repair. Return in 3 months with repeat labs Daksha Bridges PA-C CC: Nisa Shepherd CNP I spent a total of 20 minutes on the date of the service which included preparing to see the patient, [id number]-[id number]-pwfc patient care, completing clinical documentation, performing a medically appropriate examination, counseling and educating the patient/family/caregiver, ordering medications, tests, or p rocedures, independently interpreting results (not separately reported), communicating results to the patient/family/caregiver, and care coordination (not separately reported). documented in this encounterAvita Health System06-10-2025 NoteHNO ID: [id number] Author: DAKSHA BRIDGES PA-C Service: ? Author Type: Physician Escrow Secretary Type: Progress Notes Filed: 04/25/2025 11:19 Note Text: Hematology Progress Note PATIENT NAME: Anh Tejeda [facility] NO.: [id number] ATTENDING PHYSICIAN: Henry Walker MD DATE OF [...] (mmol/L) Date Value 04/18/20 (more content not included)...[facility]05-27-2025 Telephone encounter Note* Telephone Encounter - Stacey Estrada - 04/11/2025 9:59 AM EDT Spoke to Anh, labs 04/18 at 1130 and follow up 04/25 at 11am. [facility]-27-[facility] Miscellaneous Notes* Telephone Encounter - Stacey Estrada - 04/11/2025 9:59 AM EDT Spoke to Anh, labs 04/18 at 1130 and follow up 04/25 at 11am. * Telephone Encounter - Samantha Mcmahan RN - 04/11/2025 9:52 AM EDT Daksha wants labs in the next 1-2 weeks and follow up 1 week after they are drawn to review results. Samantha Mcmahan RN * Telephone Encounter - Stacey Estrada - 04/11/2025 9:47 AM EDT Patient is scheduled for 06/28 now, is that ok or does she need moved up? * Telephone Encounter - Samantha Mcmahan RN - 04/11/2025 9:15 AM EDT Pt aware and agreeable to plan of care. She denies questions, needs or concerns at this time. PSS: Please call to schedule labs /follow up per MM below. Samantha Mcmahan RN documented in this encounterAvita Health System05-27-2025 Telephone encounter Note * Telephone Encounter - Samantha Mcmahna RN - 04/11/2025 9:52 AM EDT Daksha wants labs in the next 1-2 weeks and follow up 1 week after they are drawn to review results. Samantha Mcmahan RN [facility]05-27-2025 Telephone encounter Note* Telephone Encounter - Stacey Estrada - 04/11/2025 9:47 AM EDT Patient is scheduled for 06/28 now, is that ok or does she need moved up? [facility] Telephone encounter Note* Telephone Encounter - Samantha Mcmahan RN - 04/11/2025 9:15 AM EDT Pt aware and agreeable to plan of care. She denies questions, needs or concerns at this time. PSS: Please call to schedule labs /follow up per MM below. Samantha Mcmahan RN [facility]05-23-2025 NoteHNO ID: [id number] Author: DAKSHA BRIDGES PA-C Service: ? Author Type: Physician Escrow Secretary Type: Progress Notes Filed: 04/07/2025 14:52 Note Text: Hematology Progress Note PATIENT NAME: Anh [facility] NO.: [id number] ATTENDING PHYSICIAN: Henry Walker MD DATE OF [...] 1 General: Alert and (more content not included)...[facility] 03-06-2025 History of Present illness Narrative* KARO Ayon - 03/06/2025 10:00 AM EDT Images from the original note were not [...] TUNNEL RELEASE Right 02/29/2024 JAB CATARACT EXTRACTION 2014 CHOLECYSTECTOMY 1979 COLONOSCOPY HYSTERECTOMY 2013 KNEE SURGERY [...] is more in her thumbs -trouble with health center manager -Takes Gabapentin POLYNEUROPATHY -on Requip and Gabapentin [...] out -she had MRI L spine at [facility] in January -she admits numbness and [...] dizziness, weakness, light-headedness and numbness. Negative for tremorsand headaches. Objective Visit Vitals BP 154/68 Ht 5' 1 Wt 217 lb BMI 41.00 kg/m OB Status Unknown Smoking Status Never BSA 2.06 m GENERAL Apical RRR, no murmur Neurological Exam Mental Status Awake, alert and oriented to person, place and time. Recent and remote memory are intact. Speech isnormal. Language is fluent with no aphasia. Attention [...] at the great toe bilaterally. Coordination Right: Fdieko-jt-rfhx normal. Rapid alternating movement normal.Left: Cjyqye-wb-utvz normal. Rapid alternating movement normal. Gait Casual gait is normal including stance, stride, and arm swing. Ambulaters with a cane. Able to rise from the chair without usinh her arms. Motor Examination RUE Strength deltoid, biceps, triceps, wrist extensors, wrist extensors, wrist flexor, health center manager strength 5/5. LUE Strength deltoid, biceps, triceps, wrist extensors, wrist extensors, wrist flexor, health center manager strength 5/5. RLE Strength illopsoas, quadriceps, tibialis anterior, and gastrocnemius strength 5/5. LLE Strength illopsoas, quadriceps, tibialis anterior, and gastrocnemius strength 5/5. Tone Normal tone x4 extremities. Reflexes: RUE biceps reflex 2, brachioradialis reflex 2 LUE biceps reflex 2, brachioradialis reflex 2 RLE knee reflex 1 LLE knee reflex 1, Assessment and Plan 1. TIA - presented to [facility] on 07/21/2024 with fatigue and slurred speech. Stroke risk factors includes age, hyperlipidemia, hypertension, diabetes mellitus type 2, COLTEN and prior stroke seen on MRI. She presented with fluctuating fatigue, weakness and speech issues which was related to the initiation of Farxiga, per family. She was found to have CRESENCIO and hypomagnesemia which may have contributed aswell. CT scan of the head that showed remote lacunar infarct of the left frontal periventricular white matter. MRI brain was unremarkable. She denies focal weakness. She has chronic diplopia. She hasmal fitting dentures that affects the clarity of her speech. No new signs or symptoms of stroke. 2. Syncope - R55 - Patient was seen at [facility] 03/11/2023 for syncopal episode and slurred speech [...] holter monitor 03/13/2023 revealed no cardiac arrhythmias andnormal sinus rhythms. No further syncope. 3. 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 She does have diabetes, which is likely the cause of the polyneuropathy. She is on gabapentin and requip which has lessened her neuropathic pain. 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 RUE EMG 03/31/2023 revealeda median neuropathy at or distal to the wrist, such as CTS, mild in degree electrically on the right. She had CTS release on 03/02/24 on the right. She has splints and remains on gabapentin. 5. COLTEN - She was not sleeping well due to her CPAP not working correctly and showing a leak. She isfollowing with sleep specialist at [facility]. Evaluation at [facility] on 07/21/2024: 1. CBC showed mild anemia [...] track down last MRI L spine from [facility]. 2. Continue gabapentin 300mg PO TID for [...] up in 4 months documented in this encounterCox [id number] Telephone encounter Note* Telephone Encounter - Samantha Mcmahan RN - 01/09/2025 9:11 AM EST Pt informed of MM message, once verified, using 2 patient identifiers. Patient denies any questions, needs or concerns at this time. Appointment verified. Samantha Mcmahan RN [facility]02-24-[facility] Miscellaneous Notes* Telephone Encounter - Samantha Mcmahan RN - 01/09/2025 9:11 AM EST Pt informed of MM message, once verified, using 2 patient identifiers. Patient denies any questions, needs or concerns at this time. Appointment verified. Samantha Mcmahan RN documented in this encounterAvita Health System02-21-2025 NoteHNO ID: [id number] Author: DAKSHA BRIDGES PA-C Service: ? Author Type: Physician Escrow Secretary Type: Progress Notes Filed: 01/06/2025 14:38 Note Text: Hematology Progress Note PATIENT NAME: Anh Tejeda [facility] NO.: [id number] ATTENDING PHYSICIAN: Henry Walker MD DATE OF [...] Sodium (mmol/L) Date Value (more content not included)...[facility]02-21-2025 History of Present illness Narrative* Daksha Bridges PA-C - 01/06/2025 2:18 PM EST Hematology Progress Note PATIENT NAME: Anh [facility] NO.: [id number] ATTENDING PHYSICIAN: Henry Walker MD DATE OF [...] Range Status 01/06/2025 5.9 % Final Abs [place] Date Value Ref Range Status 01/06/2025 0.32 [...] which included preparing to see the patient, zoqs-th-jwvf patient care, completing clinical documentation, performing a medically appropriate examination, counseling and educating the patient/family/caregiver, ordering medications, tests, or p rocedures, independently interpreting results (not separately reported), communicating results to the patient/family/caregiver, and care coordination (not separately reported). documented in this encounterAvita Health System02-17-2025 Telephone encounter Note * Telephone Encounter - Verenice Andres MA - 01/02/2025 2:52 PM EST Lab orders needed for upcoming appointment scheduled 01/06. Verenice Andres MA [facility]02-17-2025 Miscellaneous Notes* Telephone Encounter - Verenice Andres MA - 01/02/2025 2:52 PM EST Lab orders needed for upcoming appointment scheduled 01/06. Verenice Andres MA documented in this encounterAvita Health System2024 Evaluation note* Diagnosis Onset Date Resolution Status Admit Date Essential (primary) hypertension acutecemb2023 12:57pmInsomniaacuteDecember 2023 12:57pm Obstructive sleep apneaacuteNovember 14, 2024 12:57pmRestless leg syndrome acuteNovember 14, 2024 12:57pmType 2 diabetes mellitus with diabetic chronic kidney diseaseacuteNovember 14, 2024 12:57pm [facility] Work Phone: 1(939) 971-833912-30-2024 Evaluation note* Diagnosis Onset Date Resolution Status Admit Date Essential (primary) hypertension acuteDecemb2023 12:57pmInsomniaacuteDecember 2023 12:57pm Obstructive sleep apneaacuteDecemb2023 12:57pmRestless leg syndrome acuteNovember 14, 2024 12:57pmType 2 diabetes mellitus with diabetic chronic kidney diseaseacuteNovember 14, 2024 12:57pmAnemia of renal diseaseacute December 27, 2024 2:15pmChronic kidney disease, stage III (moderate)acute December 27, 2024 2:15pmHyperlipidemiaacuteFebruary 2024 2:15pm HypertensionacuteFebruary 2024 2:15pmHypomagnesemiaacuteFebruary 2024 2:15pmSecondary hyperparathyroidismacuteFebruary 2024 2:15pmType 2 diabetes mellitus with diabetic chronic kidney diseaseacuteFebruary 2024 2:15pm [facility] Work Phone: 1(767) 614-992412-30-2024 Evaluation note* Diagnosis Onset Date Resolution Status Admit Date Essential (primary) hypertension acuteDecember 2023 12:57pmInsomniaacuteDecember 2023 12:57pm Obstructive sleep apneaacuteDecember 2023 12:57pmRestless leg syndrome acuteDecemb2023 12:57pmType 2 diabetes mellitus with diabetic chronic kidney diseaseacuteDecember 2023 12:57pmAnemia of renal diseaseacute December 27, 2024 2:15pmChronic kidney disease, stage III (moderate)acute December 27, 2024 2:15pmHyperlipidemiaacuteFebruary 2024 2:15pm HypomagnesemiaacuteFebruary 2024 2:15pmSecondary hyperparathyroidismacute December 27, 2024 2:15pmType 2 diabetes mellitus with diabetic chronic kidney diseaseacuteFebruary 2024 2:15pmHypertensive chronic kidney disease with stage 1 through stage 4 chronic kiinactiveFebruary 2024 2:15pm [facility] Work Phone: 1(309) 310-298011-25-2024 Telephone encounter Note* Telephone Encounter - Samantha Mcmahan RN - 10/10/2024 12:34 PM EST Pt informed of MM message, once verified, using 2 patient identifiers. Patient denies any questions, needs or concerns at this time. Appointment verified. Samantha Mcmahan RN [facility]11-25-[facility] Miscellaneous Notes* Telephone Encounter - Samantha Mcmahan RN - 10/10/2024 12:34 PM EST Pt informed of MM message, once verified, using 2 patient identifiers. Patient denies any questions, needs or concerns at this time. Appointment verified. Samantha Mcmahan, RN * Telephone Encounter - Daksha Bridges PA-C - 10/10/2024 11:45 AM EST Please call with normal iron levels Daksha Bridges PA-C documented in this encounterAvita Health System11-25-2024 Telephone encounter Note * Telephone Encounter - Daksha Bridges PA-C - 10/10/2024 11:45 AM EST Please call with normal iron levels Daksha Bridges PA-C [facility]11-[facility] History of Present illness Narrative* Daksha Bridges PA-C - 10/07/2024 2:30 PM EST Hematology Progress Note PATIENT NAME: Anh Tejeda [facility] NO.: [id number] ATTENDING PHYSICIAN: Henry Walker MD DATE OF [...] Range Status 10/07/2024 5.4 % Final Abs [place] Date Value Ref Range Status 10/07/2024 0.28 [...] are pending. Repeat labs and follow up [id number]. Chronic kidney disease stage 3b--likely secondary to [...] which included preparing to see the patient, yjfa-ty-oyre patient care, completing clinical documentation, performing a medically appropriate examination, counseling and educating the patient/family/caregiver, ordering medications, tests, or p rocedures, independently interpreting results (not separately reported), communicating results to the patient/family/caregiver, and care coordination (not separately reported). documented in this encounterAvita Health System11-22-2024 NoteHNO ID: [id number] Author: DAKSHA BRIDGES PA-C Service: ? Author Type: Physician Escrow Secretary Type: Progress Notes Filed: 10/07/2024 14:56 Note Text: Hematology Progress Note PATIENT NAME: Anh Tejeda [facility] NO.: [id number] ATTENDING PHYSICIAN: Henry Walker MD DATE OF [...] CO2 (mmol/L) Date Value (more content not included)...[facility]11-20-2024 History of Present illness Narrative* Jenny [...] 10/18/2024 9:35 AM EST documented in this encounterCox [id number] Progress note Author Ottoniel Bland [facility] July 22, 2024 2:19pmNote Date/TimeSept2023 2:18pmClay[place] [address] Neurology Progress Note Signed Patient: Anh Tejeda MR#: [id number] : 1950 Acct:[id number] Age/Sex: 73 / F Adm Date: 4 Loc: 3T Room: [address] [place] [address] Type: ADM INOo Attending Dr: Comfort Monteiro [...] top plate of her dentures causing her tomake sss and thh sounds excessively. Feels fatigued [...] muscle specific kinase antibody - will be followedup on in clinic 2. Outpatient neurology follow up in 2-4 weeks 3. Okayfor discharge from my standpoint Documented By: Ottoniel Bland DO 07/22/24 1415 Signed By: <Electronically signed by Ottoniel Bland DO> 07/22/24 [facility] Work Phone: 1(160) 347-287209-06-2024 Discharge summary Author Comfort Monteiro [facility] July 22, 2024 1:39pmNote Date/TimeSept2023 1:26pmClay[place] [address] Discharge Summary Signed Patient: Anh Tejeda MR#: [id number] : 1950 Acct:[id number] Age/Sex: 73 / F Adm Date: 4 Loc: 3T Room: [address] [place] [address]: Comfort Monteiro MD Copies to: DO Comfort Rubio MD~ Providers Date of Discharge: 07/22/24 Discharging [...] acute pathology. Decision was made to keep herfor observation further evaluation andmanagement. During hospital course, [...] continue to hold Farxiga for now and follow- upwith her PCP to discuss alternative therapy. Continue to hold metformin as recommended per nephrology given her underlying CKD. Carotid Doppler was done which showed no hemodynamic significant stenosis. Blood pressure has much improved with her home regimen. Advised to continue with thatand continue to follow-up with her PCP and nephrology as outpatient. Echocardiogram was orderedthanhere, we will review her results to ensure no significant change from previous. Patient was evaluated by PT/OT who recommended home, swallow evaluation was done as well and diet was recommended as per ST. discussed with patient at bedside, all questions answered, patient in agreement and comfortable with the plan. Condition Condition at Discharge: Stable [...] on hold by Dr Stewart dapagliflozin propanediol [Farxiga] 10 mg tablet 10 mg PO DAILY Hold Instructions: Hold until seen by PCP. discuss alternative therapy Discontinued metformin 1,000 mg Tablet 1,000 mg PO BID Exam Physical Exam Vital Signs: Temp Pulse Resp BP Pulse Ox O2 Del Method 97.5 F L 64 18 119/74 98 Room Air 07/22/24 12:08 07/22/24 12:07/22/24 12:07/22/24 12:07/22/24 12:07/22/24 12:08 Narrative: Const General: cooperative HEENT [...] MPV7.3, Neut % (Auto) 60.0, Lymph % (Auto)31.4, [place] % (Auto) 5.5, Eos % (Auto) 2.7, Baso % (Auto) 0.4, Nucleat RBC Rel Count 0.1, Neut # (Auto) 3.3, Lymph # (Auto) 1.7, [place] # (Auto) 0.3, Eos # (Auto) 0.1, Baso # (Auto) 0.0, PHA Creatinine Clear 35.10, Sodium 141, Potassium 4.0, Chloride 104, Carbon Dioxide 24.9, Anion Gap 16.1 H, BUN 37 H, Creatinine 1.55 H, Est GFR (CKD-EPI) 34.723, Glucose 142 H D, Calcium 9.2, Total Bilirubin 0.5, AST 17, ALT 17, Alkaline Phosphatase 122 H, Total Protein 6.3 L, Albumin 3.9, Globulin 2.4, Albumin/Gl obulin Ratio 1.6 07/21/24 20:41: POC Glucose 249 07/21/24 17:13: Magnesium 1.7 L 07/21/24 17:00: SARS-CoV-2 Rap RNA(RT-PCR) Negative Documented By: Comfort Monteiro MD 07/22/24 13 26 Signed By: <Electronically signed by Comfort Monteiro MD> 07/22/24 [facility] Work Phone: 1(265) 437-789909-05-2024 Consult note Author Ottoniel Bland [facility] July 21, 2024 4:56pmNote Date/TimeSept2023 3:59pmClay[place] [address] Neurology Consult Note Signed Patient: Anh Tejeda MR#: [id number] : 1950 Acct:[id number] Age/Sex: 73 / F Adm Date: 4 Loc: Room: [address] [place] [address] Type: ADM INOo Attending Dr: Comfort Monteiro MD Copies to: DO Vinay Mckeon DO Obaydah M Daromar, MD~ HPI Consult Date: 07/21/24 Electorate Officer: Ottoniel Bland DO [facility] Medical History COVID-19 Acute bronchitis CRESENCIO (acute [...] Riki Garnica M.D.07/21/2024 12:02 PM Dictation [facility] 07/21/24 10:06 IMPRESSION: No acute intracranial pathology. 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 Impression dictated by: Riki Garnica M.D.07/21/2024 10:57 AM Dictation Location: [place] [address] Assessment/Plan (1) Slurred speech: Plan CONSULT REASON: Slurred speech HPI: 73-year-old woman. Starting around July 09 she has been having fluctuating bodily fatigue and slurred speech issues. Her brother is in the room and helps provide the history. She thinks this all started when she started on Farxiga. That medication was stopped 3 days ago. The issues seem to slowlyfluctuate. She will have hours where her speech [...] seems unlikely but we will check antibodies a ssociated with myasthenia gravis. PLAN: 1. Checking a serum magnesium, was quite low back in May 2. Checking acetylcholine receptor antibodies and muscle specific kinase antibody 3. MRI brain report pending 4. Further recommendations to follow Documented By: Ottoniel Bland DO 07/21/24 1555 Signed By: <Electronically signed by Ottoniel Bland DO> 07/21/24 7257 [facility] Work Phone: 1(198) 374-489309-05-2024 History and physical note Author Comfort Monteiro [facility] July 21, 2024 3:26pmNote Date/TimeSept2023 12:40pmClay[place] [address] Hospitalist H&P Signed Patient: Anh Tejeda MR#: [id number] : 1950 Acct:[id number] Age/Sex: 73 / F Adm Date: 4 Loc: Room: [address] [place] [address] Type: ADM INOo Attending Dr: Comfort Monteiro [...] unable to express her words, denies any chestpain, dizziness, lightheadedness, near-syncope or syncope events or [...] 90s, improved with IV hypertensive agents, patient statedthat she did not take her blood pressure medicine. Initial CT head showed remote lacunar infarct inthe left frontal periventricular white matter similar to prior exam, no acute pathology. Decision was made to keep her for observation further evaluation and management. Review of Systems Review of Systems Review of systems: 10 systems are reviewed and are negative except as mentioned elsewhere in the documentation [facility] Medical History COVID-19 Acute bronchitis CRESENCIO (acute [...] Confirmed 07/21/24] dapagliflozin propanediol 10 mg tablet (Rickie) 10 mg PO DAILY 07/21/24 [History Confirmed [...] % (Auto) 24.6 % (.) 07/21/24 10:25 [place] % (Auto) 4.0 % (.) 07/21/24 10:25 Eos % (Auto) 2.5 % (.) 07/21/24 10:25 Baso % (Auto) 0.7 % (.) 07/21/24 10:25 Nucleat RBC Rel Count 0.0 /100 WBC (0-0.5) 07/21/24 10:25 Neut # (Auto) 3.3 x10E3/uL (1.8-7.7) 07/21/24 10:25 Lymph # (Auto) 1.2 x10E3/uL (1.00-4.8) 07/21/24 10:25 [place] # (Auto) 0.2 x10E3/uL (0.0-0.8) 07/21/24 10:25 [...] pH 6.0 (5.0-9.0) 07/21/24 11:48 Ur Specific [place] 1.018 (1.001-1.030) 07/21/24 11:48 Urine Protein Negative [...] -Check MRI brain -PT/OT eval and treat -[facility] evaluation -Will keep hydralazine, labetalol IV as [...] <Electronically signed by Comfort Monteiro MD> 07/21/[address] [place] [address] Work Phone: 1(462) 808-320809-03-2024 Telephone encounter Note* Telephone Encounter - Samantha Mcmahan RN - 07/19/2024 12:48 PM EDT Pt informed of MM message and denies any questions, needs or concerns at this time. Appointment verified. Samantha Mcmahan RN [facility]09-03-2024 Miscellaneous Notes* Telephone Encounter - Samantha Mcmahan RN - 07/19/2024 12:48 PM EDT Pt informed of MM message and denies any questions, needs or concerns at this time. Appointment verified. Samantha Mcmahan, RN * Telephone Encounter - Daksha Bridges PA-C - 07/19/2024 12:36 PM EDT Please inform patient that she does not need iron at this time Daksha Bridges PA-C documented in this encounterAvita Health System09-03-2024 Telephone encounter Note * Telephone Encounter - Daksha Bridges PA-C - 07/19/2024 12:36 PM EDT Please inform patient that she does not need iron at this time Daksha Bridges PA-C [facility] History of Present illness Narrative* Daksha Bridges PA-C - 07/15/2024 2:30 PM EDT Hematology Progress Note PATIENT NAME: Anh Tejeda [facility] NO.: [id number] ATTENDING PHYSICIAN: Henry Walker MD DATE OF [...] Carb 250-300 mg tab Take by mouth. LOCO, JEN, 100 % pste APPLY A THIN [...] Range Status 07/15/2024 5.0 % Final Abs [place] Date Value Ref Range Status 07/15/2024 0.37 [...] which included preparing to see the patient, cxzh-cq-mvuo patient care, completing clinical documentation, performing a medically appropriate examination, counseling and educating the patient/family/caregiver, ordering medications, tests, or p rocedures, independently interpreting results (not separately reported), communicating results to the patient/family/caregiver, and care coordination (not separately reported). documented in this encounterAvita Health System06-05-2024 Telephone encounter Note * Telephone Encounter - Samantha Mcmahan RN - 04/20/2024 1:48 PM EDT Pt aware and denies any questions, needs or concerns at this time. Samantha Mcmahan RN [facility]06-05-2024 Miscellaneous Notes* Telephone Encounter - Samantha Mcmahan [...] time Samantha Mcmahan RN documented in this encounterAvita Health System06-05-2024 Telephone encounter Note * Telephone Encounter - Daksha Bridegs PA-C - 04/20/2024 1:20 PM EDT Iron levels look good Daksha Bridges PA-C [facility] Telephone encounter Note* Telephone Encounter - Samantha Mcmahan RN - 04/20/2024 11:58 AM EDT Pt called to request Iron lab results. MM: please verify no needs at this time Samantha Mcmahan RN [facility]05-31-2024 Instructions* Patient Instructions* Shana Floers APRN.CNP - 04/15/2024 2:27 PM EDT Please call the office with questions or concerns. Report symptoms of worsening iron-deficiency anemia like short of breath, headaches, ice cravings, worsening fatigue, dizziness, or light-headedness. documented in this encounterAvita Health System05-31-2024 History of Present illness Narrative* Shana Flores APRN.CNP - 04/15/2024 2:09 PM EDT Hematology Progress Note PATIENT NAME: Anh Tejeda [facility] NO.: [id number] ATTENDING PHYSICIAN: Henry Walker MD DATE OF [...] mg was 02/11/24. Will be seeing a electronics processor in the next couple of weeks for [...] Range Status 04/15/2024 4.7 % Final Abs [place] Date Value Ref Range Status 04/15/2024 0.31 [...] SPEP/MPA. Shana Flores APRN.JENY Hematology/Oncology [place] [phone] CC: Nisa Shepherd CNP documented in this encounterAvita Health System03-25-2024 History of Present illness Narrative* Renetta Johnson LSW - 02/08/2024 11:41 AM EDT Patient appears on the [facility] First Time Treatment List for a non-oncology treatment. No psychosocial assessment is indicated. ALIA Bean documented in this encounterAvita Health System03-18-2024 Miscellaneous Notes* Telephone Encounter - Colette Carbajal [...] if she would like. documented in this encounterAvita Health System03-15-2024 Miscellaneous Notes* Telephone Encounter - Samantha Mcmahan RN - 01/29/2024 1:15 PM EDT Pt called to inform MM her blood sugar is down to 198. Instructed to keep a record and notify PCPChristopheray for an appt to manage. She is agreeable and will call. Samantha Mcmahan RN documented in this encounterAvita Health System03-15-2024 History of Present illness Narrative* Daksha Bridges PA-C - 01/29/2024 10:30 AM EDT PATIENT NAME: Anh [facility] NO.: [id number] ATTENDING PHYSICIAN: Henry Walker MD DATE OF [...] to sleep. Going [place] to [place]. Current Outpatient Medications Medication Sig [...] Range Status 01/29/2024 3.5 % Final Abs [place] Date Value Ref Range Status 01/29/2024 0.21 [...] which included preparing to see the patient, jdpt-bd-xrxt patient care, completing clinical documentation, obtaining and/or reviewing separately obtained history, performing a medically appropriate examination, counseling and educating the pat ient/family/caregiver, ordering medications, tests, or procedures, and communicating results to thepatient/family/caregiver. documented in this encounterAvita Health System01-22-2024 Hospital Discharge instructions Patient Education 12/07/2023 09:08:45 [...] spleen. Follow these instructions at home: Take reas-hbe-fvengvd and prescription medicines only as told by [...] provider. Document Revised: 01/26/2023 Document Reviewed: 01/26/2023 [employer] Patient Education 2022 [employer]. Follow Up Care 11/12/2023 09:08:30 With:Nisa Shepherd CNP Address: When:3 months [facility] [phone] Miscellaneous Notes* Telephone Encounter - Samantha Mcmahan [...] with normal iron levels documented in this encounterAvita Health System12-05-2023 Evaluation note* Encounter Date Diagnosis Assessment Notes Treatment Notes Treatment Clinical Notes Oct, Obstructive sleep apnea (ICD-10 - G47.33) Fortunately, the patient is using and benefiting from treatment. Download was reviewed with patient, Current pressure is controlling apnea well, And we will make no changes at this time. Pt does havea significant leak but this is likely due to mouth leak as opposed to inproper fit. A prescription was sent to the [employer] for new supplies throughout the year. She was encouraged to continue to use her machine nightly, throughout the entire night and for naps as this does provide clinicalbenefit. She will follow-up in the sleep clinic in 1 year or sooner if problems. Oct,MI 36.0-36.9,adult (ICD-10 - Z68.36)Patient's weight is unchanged since last OV, positive effects of weight loss on COLTEN were reviewed. She was encouraged to continue to work on diet modification and increase activity, we will continue to monitor. Oct,Nasal congestion (ICD-10 - R09.81)She has been sick recently and has been [...] She refuses a FFM d/t claustrophobic issues. Oct,Restless leg syndrome (ICD-10 - G25.81)Pt notes that she is taking gabapentin and requip for this. She feels that RLS symptoms have increased lately. She has brought this up with her PCP, but he does not want to increase it any more at this time. Pt does have anemia, she is currently seeing a performance architect and has needed some blood transfusion. They are currently managing this and she may need to see a electronics processor for kidney issues. Discussed c pt that her increase in RLS is likely due to her anemia and likely won't resolve until her blood count normalizes. Meanwhile, continue with symptomatic treatment with requip and gabapentin. Oct,OtherCall if any questions or problems. For Sleep Apnea: Patient is advised to work on healthy diet choices and appropriate servings, weight control, regular exercise as directed, and reduce fat intake. Use machine regularly, and keep up with mask changes as needed. Call if problems with mask toleration, increased sleepiness, or poor response to treatment. Take medication as prescribed, keep follow upappointments, get any testing that's been ordered in a timely fashion. Do not smoke web care [employer] Other 09-11-2023 Miscellaneous Notes* Telephone Encounter - [...] with normal iron studies documented in this encounterAvita Health System09-08-2023 Miscellaneous Notes* Telephone Encounter - Valentina Diaz [...] sooner. Daksha Bridges PA-C documented in this encounterAvita Health System09-08-2023 Nurse Note* Beverly Reza MA - 07/24/2023 2:01 PM EDT Patient states that she has been very tired but her neuropathy have been bothering her. Beverly Marcus MA documented in this encounterAvita Health System09-08-2023 History of Present illness Narrative* Daksha Bridges PA-C - 07/24/2023 2:00 PM EDT PATIENT NAME: Anh [facility] NO.: [id number] ATTENDING PHYSICIAN: Henry Walker MD DATE OF [...] Range Status 07/24/2023 5.9 % Final Abs [place] Date Value Ref Range Status 07/24/2023 0.39 [...] CC: Nisa Shepherd CNP documented in this encounterAvita Health System06-19-2023 Miscellaneous Notes* Telephone Encounter - Karlie Vallejo [...] does not need iron. documented in this encounterAvita Health System06-16-2023 History of Present illness Narrative* Daksha Bridges PA-C - 05/01/2023 2:00 PM EDT PATIENT NAME: Anh [facility] NO.: [id number] ATTENDING PHYSICIAN: Henry Walker MD DATE OF [...] last visit she did have admission to [facility] in February 2023for syncope and UTI. She [...] a colonoscopy a few weeks ago at [facility]. I do not have any of these [...] Range Status 05/01/2023 6.0 % Final Abs [place] Date Value Ref Range Status 05/01/2023 0.44 [...] in 3 months. Will request records from [facility] colonoscopy as well. Chronic kidney disease stage 3b--likely secondary to diabetes. Referral to nephrology recommended and she wishes to discuss to PCP Daksha Bridges PA-C CC: Nisa Shepherd CNP documented in this encounterAvita Health System04-27-2023 Consult note Author Krissy Easton [facility] March 12, 2023 5:33pmNote Date/TimeApril 2022 11:16[place] [id number] Neurology Consult Note Signed Patient: Anh Tejdea MR#: [id number] : 1950 Acct:[id number] Age/Sex: 72 / F Adm Date: 3 Loc: Room: [address] [place] [address] Type: ADM IN Attending Dr: Kimberly Arteaga MD Copies to: DO Queta Rubio ANP-C Mazhar Rahman, MD Nicole J Danner,~ HPI Consult Date: 03/12/23 Electorate Officer: ISAMAR Amato with Dr. Easton Reason for [...] the hospital service after presenting with syncopal episodesand slurred speech. She states she went to [...] due to weakness. She states she felt likeall of her energy drained out of her [...] the right lower extremity due to pain inher hip and back. No pronator drift was [...] and ulnar nerve compression CEREBELLAR EXAM: * Snqbws-sa-htlh and alternating movements are intact and normal in bilateral upper extremities * Klka-gf-dpva and alternating movements are intact and normal in lower extremities. She has difficulty with pfdm-va-ddcr using the right lower extremity due to [...] of dysmetria with good rapid alternating movements ywqmtp-xs-yekh Tone is physiologic Deep tendon reflexes are [...] syncopal episode. She has a history of synco palepisodes associated with stress, illness, and emotion. Her last syncopal episode was last Fall. CT scan of the head was nonacute. CTA of head and neck was negative for occlusive disease that wouldcontribute to cerebral hypertension secondary to intracranial extracranial [...] care and confirmed this with the Fellow/Nurse Practitioner/Resident/Pv Design Engineer/Physician Escrow Secretary as noted below. 72 year old female [...] neuropathy. She has had positive orthostatic blood pressures.Currently doing well and feels 100% better than she did yesterday. At this time I have no further neurologic work- up. She needs to monitor her blood pressure. [...] can be DC'd whenever cleared by the otherservices Documented By: Krissy Easton DO 03/12/23 1106 Signed By: <Electronically signed by DO Krissy Easton> 03/12/23 1733 <Electronically signed by DENISE Prieto> 03/12/23 1156 [facility] Work Phone: 1(514) 135-848804-27-2023 Progress note Author Kimberly Arteaga [facility] March 12, 2023 4:35pmNote Date/TimeApril 2022 4:32pm[place] [address] Hospitalist Progress Note Signed Patient: Anh Tejeda MR#: [id number] : 1950 Acct:[id number] Age/Sex: 72 / F Adm Date: 3 Loc: Room: [address] [place] [address] Type: ADM IN Attending Dr: Kimberly Arteaga [...] 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 She has been toldto have sciatica on the right and thinks [...] No event monitor on telemetry with echocardiogram showingpreserved ejection fraction and mild diastolic dysfunction. No [...] on ceftriaxone until final sensitivities are back tomake sure we are not dealing with resistant organisms. Continue aspirin, statin, allopurinol, insulin with sliding scale coverage and beta-mervat. Continue to hold metformin given contrast exposure and given 1 dose of basal insulin for hyperglycemia. Subcutaneous heparin for DVT prophylaxis. Creatinine is slightly increased and need to be monitored closely. Continue to hold Lasix, lisinopril andhydrochlorothiazide. She did receive IV contrast yesterday and [...] signed by Kimberly Arteaga MD> 03/12/23 1635 [facility] Work Phone: 1([phone]) 319-534004-26-2023 History and physical note Author Kimberly Arteaga [facility] March 11, 2023 7:01pmNote Date/TimeApril 2022 6:46pmClay[place] [address] Hospitalist H&P Signed with Addenda Patient: Anh Tejeda MR#: [id number] : 1950 Acct:[id number] Age/Sex: 72 / F Adm Date: 3 Loc: Room: [address] [place] [address] Type: ADM IN Attending Dr: Kimberly Arteaga [...] her to the emergency room and while tryingto take her out of thecar she had [...] negative unless noted below or in HPI [facility]?: Yes Medical History [...] % (Auto) 24.2 % (.) 03/11/23 15:41 [place] % (Auto) 6.1 % (.) 03/11/23 15:41 Eos % (Auto) 1.4 % (.) 03/11/23 15:41 Baso % (Auto) 0.4 % (.) 03/11/23 15:41 Nucleat RBC Rel Count 0.1 /100 WBC (0-0.5) 03/11/23 15:41 Neut # (Auto) 3.9 x10E3/uL (1.8-7.7) 03/11/23 15:41 Lymph # (Auto) 1.4 x10E3/uL (1.00-4.8) 03/11/23 15:41 [place] # (Auto) 0.3 x10E3/uL (0.0-0.8) 03/11/23 15:41 [...] pH 5.0 (5.0-9.0) 03/11/23 16:48 Ur Specific [place] 1.020 (1.001-1.030) 03/11/23 16:48 Urine Protein Negative [...] stroke. Documented By: Kimberly Arteaga MD 03/11/23 3277 Signed By: <Electronically signed by Kimberly Arteaga MD> 03/11/23 1856 [facility] Work Phone: 1(140) 307-936203-27-2023 Miscellaneous Notes* Telephone Encounter - Sonia Rg [...] with normal iron labs documented in this encounterAvita Health System03-24-2023 History of Present illness Narrative* Daksha Bridges PA-C - 02/06/2023 2:30 PM EDT PATIENT NAME: Anh [facility] NO.: [id number] ATTENDING PHYSICIAN: Henry Walker MD DATE OF [...] Range Status 02/06/2023 5.7 % Final Abs [place] Date Value Ref Range Status 02/06/2023 0.37 [...] CC: Nisa Shepherd CNP documented in this encounterAvita Health System02-08-2023 Hospital Discharge instructions Patient Education 12/24/2022 10:32:42 [...] powder, vinegar, hot sauces, and barbecue sauce. ?[place]anier fruit juices and citrus fruits, such as oranges, myron, and limes. ?Tomato-based foods, such as red sauce, chili, salsa, and pizza with red sauce. ?Fried and fatty foods, such as donuts, turkmen fries, potato chips, and high-fat dressings. ?High-fat [...] to any changes in your symptoms. Take qjfz-jrt-bbyghya and prescription medicines only as told by [...] you have new or worsening symptoms. Take vjbo-cpj-oybavao and prescription medicines only as told by [...] 08/12/2006 Document Revised: 05/11/2019 Document Reviewed: 05/11/2019 [employer] Patient Education 2020 [employer]. 12/24/2022 10:15:21 Gastroesophageal Reflux Disease, Adult Gastroesophageal [...] powder, vinegar, hot sauces, and barbecue sauce. ?[place]anier fruit juices and citrus fruits, such as oranges, myron, and limes. ?Tomato-based foods, such as red sauce, chili, salsa, and pizza with red sauce. ?Fried and fatty foods, such as donuts, turkmen fries, potato chips, and high-fat dressings. ?High-fat [...] to any changes in your symptoms. Take siee-htp-iyqmohs and prescription medicines only as told by [...] you have new or worsening symptoms. Take vboe-rfv-pouycuk and prescription medicines only as told by [...] 08/12/2006 Document Revised: 05/11/2019 Document Reviewed: 05/11/2019 [employer] Patient Education 2020 [employer]. Follow Up Care 09/19/2022 13:04:08 With:Nisa Shepherd CNP Address: When:3 months [facility] 01-30-2023 Miscellaneous Notes* [...] Keep appointments as scheduled documented in this encounterAvita Health System01-27-2023 History of Present illness Narrative* Daksha Bridges PA-C - 12/12/2022 3:00 PM EST PATIENT NAME: Anh [facility] NO.: [id number] ATTENDING PHYSICIAN: Henry Walker MD DATE OF [...] 12/12/2022 1.24 1.00 - 4.00 k/uL Final [place]% Date Value Ref Range Status 12/12/2022 5.0 % Final Abs [place] Date Value Ref Range Status 12/12/2022 0.28 [...] CC: Nisa Shepherd CNP documented in this encounterAvita Health System12-07-2022 History of Present illness Narrative* MAGUE Bean - 10/22/2022 9:46 AM EST Patient [facility] the [facility] First [facility] Treatment List for a non-oncology treatment. No psychosocial assessment is indicated. ALIA Bean documented in this encounterAvita Health System12-01-2022 History of Present illness Narrative* Daksha Bridges PA-C - 10/16/2022 10:30 AM EST PATIENT NAME: Anh Nikhil [facility] NO.: [id number] ATTENDING PHYSICIAN: Henry Walker MD DATE OF [...] 10/01/2022 1.07 1.00 - 4.00 k/uL Final [place]% Date Value Ref Range Status 10/01/2022 4.6 % Final Abs [place] Date Value Ref Range Status 10/01/2022 0.25 [...] venofer with the patient as well. Daksha Bridegs PA-C CC: Nisa Shepherd CNP documented in this encounterAvita Health System11-30-2022 Miscellaneous Notes* Telephone Encounter - Haley Milligan - 10/15/2022 10:08 AM EST Patient on 1st time treatment report-non oncology regimen (venofer) Patient holds medicare coverageand no FA available for this treatment. documented in this encounterAvita Health System11-29-2022 Evaluation note* Encounter Date Diagnosis Assessment Notes Treatment Notes Treatment Clinical Notes Sep, Obstructive sleep apnea (ICD-10 - G47.33) Fortunately, the patient is using and benefiting from treatment. Download was reviewed with patient, Current pressure is controlling apnea well, And we will make no changes at this time. A prescription was sent to the [employer] for new supplies throughout the year. She was encouraged to continue to use her machine nightly, throughout the entire night and for naps as this does provide clinical benefit. She will follow-up in the sleep clinic in 1 year or sooner if problems. Sep,MI 36.0-36.9,adult (ICD-10 - Z68.36)Patient is obese, positive effects of weight loss on COLTEN were reviewed. She was encouraged to continue to work on diet modification and increase activity, we will continue to monitor. Sep,Nasal congestion (ICD-10 - R09.81)Pt reports increased nasal congestion and rhinorrhea s/p COVID infection in July 2022. She states that sometimes it can be difficult for her to use her machine due to this. She states that she will occasionally use some OTC Coricidin HBP with little relief. I recommended that patient use a OTCnasal corticosteroid such as Flonase or Nasacort to help with the symptoms. Sep,estless leg syndrome (ICD-10 - G25.81)Pt reports improved symptom relief with increased medication dosage. She continues to follow with PCP for this. Sep,therCall if any questions or problems. For Sleep Apnea: Patient is advised to work on healthy diet choices and appropriate servings, weight control, regular exercise as directed, and reduce fat intake. Use machine regularly, and keep up with mask changes as needed. Call if problems with mask toleration, increased sleepiness, or poor response to treatment. Take medication as prescribed, keep follow upappointments, get any testing that's been ordered in a timely fashion. Do not smoke web care [employer] Other 11-25-2022 History of Present illness Narrative* MAGUE Bean - 10/10/2022 9:09 AM EST Patient appears on the First Time Treatment List for a non-oncology treatment. No psychosocial assessment is indicated. Renetta Alex, LICENSED AIRCRAFT MAINTENANCE ENGINEER-S documented in this encounterAvita Health System11-21-2022 Miscellaneous Notes* Telephone Encounter - Colette Carbajal [...] us arranging for it documented in this encounterAvita Health System11-16-2022 History of Present illness Narrative* Henry Walker MD - 10/01/2022 11:47 AM EST PATIENT NAME: Anh [facility] NO.: [id number] ATTENDING PHYSICIAN: Henry Walker MD DATE OF [...] below. Henry Walker M.D. Hematology/Medical Oncology [facility] [phone] CC: Nisa Shepherd, MANAGER CLINICAL APPLICATIONS documented in this encounterAvita Health System10-18-2022 Evaluation + Plan note Future Scheduled Tests Laboratory* B-Type Natriuretic Peptide 09/02/22 * TIBC Calculated 04/23/22 * Ferritin 04/23/22 * Folate Level 04/23/22 * Hepatic Function Panel 04/23/22 * Iron Level 04/23/22 * Magnesium Level 02/04/23 * Reticulocyte Count 04/23/22 * Vitamin B12 Level 04/23/22 [facility]07-28-2022 Hospital Discharge instructions Patient Education 06/12/2022 [...] unsweetened, w/added ascorbic acid 1 cup 0.5 [place] 1 cup 0.7 Vegetables Cooked Green beans 1 cup 4.0 Carrots 1/2 cup sliced 2.3 Peas 1 cup 8.8 Potato (baked, with skin) 1 medium potato 3.8 Raw [place] (with peel) 1 cucumber 1.5 Lettuce 1 [...] 8.7 Peanuts 1/2 cup [address] [facility] 2013. SEEK IMMEDIATE MEDICAL CARE IF: You [...] Reference. Available at http://www.nal.usda.gov/fnic/foodcomp/search/. Information adapted from: [facility] Patient Information 2009 [place]. [employer] 2012 http://www.Shop2/contents/gdyycowpfiye-xkkprrq-qojgag-the-basics 06/12/2022 09:13:55 Colon Polyps Colon Polyps Polyps [...] 07/29/2005 Document Revised: 02/17/2019 Document Reviewed: 02/17/2019 [employer] Patient Education 2020 [employer]. 06/12/2022 09:13:55 Colonoscopy, Care After Surgery [facility] (CUSTOM) Colonoscopy Care After Surgery Please read the instructions outlined below and refer to this sheet in the next few weeks. These discharge instructions provide you with general information on caring [facility] Your doctor may also give you specific [...] day. 06/12/2022 09:13:55 Endoscopy, Care After Procedure [facility] ([facility]) Endoscopy Care After Procedure Please read the instructions outlined below and refer to this sheet in the next few weeks. These discharge instructions provide you with general information on caring for [facility] Your doctor may also give [...] blood. Document Released: 06/16/2005 Document Re-Released: 04/26/2007 [facility] Patient Information 2009 [employer]. Follow Up Care 04/23/2022 14:07:59 With:Jason RUSSELL Address: [address] [place] [address]. [address] [place] [address] Business (1) When:1 to 2 weeks Comments:Call for any problems. [facility]Reason for visit Narrative* Chief Complaint See order RENAL CKD PROGRESSIONReason for VisitAnemia of renal disease Chronic kidney disease, stage III (moderate) Hyperlipidemia [id number] Secondary hyperparathyroidism Type 2 diabetes mellitus with diabetic chronic kidney disease [facility] Work Phone: Chief complaint+Reason for visit Narrative* Chief Complaint RENAL CKD PROGRESSIO N N18.30 E78.5 N25.81 N18.9 D63.1 I12.9 E11.22 N18.3Reason for VisitAnemia of renal disease Chronic kidney disease, stage III (moderate) Hyperlipidemia [id number] Secondary hyperparathyroidism Type 2 diabetes mellitus with diabetic chronic kidney disease [facility] Work Phone: Chief complaint+Reason for visit Narrative* Chief Complaint RENAL CKD PROGRESSIO N N18.30 E78.5 N25.81 N18.9 D63.1 I12.9 E11.22 N18.3 RENAL 6 Week F/UReason for VisitAnemia of renal disease Chronic kidney disease, stage III (moderate) Hyperlipidemia [id number] Secondary hyperparathyroidism Type 2 diabetes mellitus with diabetic chronic kidney disease Anemia of renal disease Chronic kidney disease, stage III (moderate) Hyperlipidemia [id number] Hypomagnesemia Secondary hyperparathyroidism Type 2 diabetes mellitus with diabetic chronic kidney disease [facility] Work Phone: Chiza complaint+Reason for visit Narrative* Chief Complaint RENAL CKD PROGRESSIO N N18.30 E78.5 N25.81 N18.9 D63.1 I12.9 E11.22 N18.3 RENAL 6 Week F/U heart palpatationsReason for VisitAnemia of renal disease Chronic kidney disease, stage III (moderate) Hyperlipidemia [id number] Secondary hyperparathyroidism Type 2 diabetes mellitus with diabetic chronic kidney disease Anemia of renal disease Chronic kidney disease, stage III (moderate) Hyperlipidemia [id number] Hypomagnesemia Secondary hyperparathyroidism Type 2 diabetes mellitus with diabetic chronic kidney disease Heart palpitations [id number] Hypertensive urgency Slurred speech Type 2 diabetes mellitus with diabetic chronic kidney disease [facility] Work Phone: Discharge summary Author Kimberly Arteaga [facility] March 13, 2023 1:09pmNote Date/TimeApril 2022 1:08pm[address] [address] Discharge Summary Signed Patient: Anh Tejeda MR#: [id number] : 1950 Acct:[id number] Age/Sex: 72 / F Adm Date: 3 Loc: Room: [address] [place] [address]: Kimberly Arteaga MD Copies to: [...] in the right hand suspecting carpal tunnel syndrome.She is also been told to have sciatica on the right leg with significant neuropathy. Given her multiple risk factors and concern for stroke patient was admitted for stroke work-up. She was also diagno sed to have UTI with urine culture came back growing E. coli. She was seen by neurology with recommendation for outpatient follow-up for EMG regardingher paresthesia. Her symptoms likely combination of UTI and suspecting autonomic neuropathy. Discussed with patient and her brother regarding precautionary measures to prevent fall due to concern for autonomic dysfunction. MRI brain was negative foracute abnormality. No critical stenosis seen on CTAhead [...] % (Auto) 62.5, Lymph % (Auto) 28.5, [place] % (Auto) 6.9, Eos % (Auto) 1.7, Baso % (Auto) 0.4, Nucleat RBC Rel Count 0.1, Neut # (Auto)3.1, Lymph # (Auto) 1.4, [place] # (Auto) 0.3, Eos # (Auto) 0.1, Baso # (Auto) 0.0 03/13/23 05:13: PHA Creatinine Clear 39.70, Sodium 141, Potassium , Chloride 103, Carbon Dioxide 29.6, Anion Gap TNP, BUN 28 H, Creatinine 1.35 H, Est GFR (CKD-EPI) 41.239, Glucose 130 H, Calcium 8.5L 03/12/23 20:40: POC Glucose 303 03/12/23 16:12: [...] PO BID Follow Up: [facility] - Abhishek [Outside] - 03/19/23 9:00 am (With Nano [...] signed by Kimberly Arteaga MD> 03/13/23 1309 [facility] Work Phone: Evaluation + Plan note Future Appointments Appointment Date:06/12/2022 08:45:00 AM Scheduled Provider: Location:[facility] Appointment Type:Surgery FT Appointment Date:08/18/2022 11:45:00 AM Scheduled Provider:Jose Carlos Mattson MD [facility] Type:Cardiology Follow Up (FT) Future Scheduled Tests Laboratory* TIBC Calculated 04/23/22 * Ferritin 04/23/22 * Folate Level 04/23/22 * Hepatic Function Panel 04/23/22 * Iron Level 04/23/22 * Reticulocyte Count 04/23/22 * Vitamin B12 Level 04/23/22 [facility] Evaluation + Plan note Future Appointments Appointment Date:08/18/2022 11:45:00 AM Scheduled Provider:Jose Carlos Mattson MD [facility] Type:Cardiology Follow Up (FT) Future Scheduled Tests Laboratory* TIBC Calculated 04/23/22 * Ferritin 04/23/22 * Folate Level 04/23/22 * Hepatic Function Panel 04/23/22 * Iron Level 04/23/22 * Reticulocyte Count 04/23/22 * Vitamin B12 Level 04/23/22 [facility] Appointment Date:09/19/2022 12:20:00 PM Scheduled Provider:Nisa Shepherd CNP [place] Appointment Type:[facility] Follow Up Future Scheduled Tests Laboratory* B-Type Natriuretic Peptide 09/02/22 * TIBC Calculated 04/23/22 * Ferritin 04/23/22 * Folate Level 04/23/22 * Hepatic Function Panel 04/23/22 * Iron Level 04/23/22 * Reticulocyte Count 04/23/22 * Vitamin B12 Level 04/23/22 [facility]ments Appointment Date:12/24/2022 10:20:00 AM Scheduled Provider:Nisa Shepherd CNP [place] Appointment Type:BAD Follow Up Future Scheduled Tests Laboratory* B-Type Natriuretic Peptide 09/02/22 * TIBC Calculated 04/23/22 * Ferritin 04/23/22 * Folate Level 04/23/22 * Hepatic Function Panel 04/23/22 * Iron Level 04/23/22 * Reticulocyte Count 04/23/22 * Vitamin B12 Level 04/23/22 [facility]ments Appointment Date:02/03/2023 10:00:00 AM Scheduled Provider: [facility] Type:US Abdominal/Pelvis () Appointment Date:03/23/2023 09:20:00 AM Scheduled Provider:Nisa Shepherd CNP [place] Appointment Type:[facility] Follow Up Future Scheduled Tests Laboratory* [...] 02/03/23 * NM Gastric Emptying Study 12/24/22 [facility] Evaluation + Plan note Future Appointments Appointment Date:02/03/2023 10:00:00 AM Scheduled Provider: [facility] App[facility] Type:US Abdominal/Pelvis () Appointment Date:03/23/2023 09:20:00 AM Scheduled Provider:Nisa Shepherd CNP Location:[facility] Appointment Type:[facility] Follow Up Future Scheduled Tests Laboratory* [...] B12 Level 12/24/22 Radiology* US Liver 02/03/23 [facility]ments Appointment Date:04/22/2023 10:00:00 AM Scheduled Provider: Location:[facility] Appointment Type:Surgery FT Future Scheduled Tests Laboratory* B-Type Natriuretic Peptide 09/02/22 * TIBC Calculated 04/23/22 * Ferritin 04/23/22 * Folate Level 04/23/22 * Hepatic Function Panel 04/23/22 * Iron Level 04/23/22 * Magnesium Level 02/04/23 * Reticulocyte Count 04/23/22 * Vitamin B12 Level 04/23/22 [facility] Evaluation + Plan note Future Appointments Appointment Date:01/28/2024 09:00:00 AM Scheduled Provider: Location[facility] Appointment Type:US Abdominal/Pelvis (FT) Appointment Date:02/29/2024 09:20:00 AM Scheduled Provider:Nisa Shepherd CNP [place] Appointment Type:[facility] Follow Up Future Scheduled Tests Laboratory* HCV RNA by PCR, Qn Rfx Arlet 12/08/23 * Oebcr-9-Qxdgmqkykhr 12/08/23 * Ceruloplasmin 12/08/23 * Antimitochondrial Antibody, [...] * Transferrin 12/08/23 Radiology* US Liver 01/28/24 [facility] Evaluation + Plan note Future Appointments Appointment Date:02/29/2024 09:20:00 AM Scheduled Provider:Nisa Shepherd CNP [place] Appointment Type:[facility] Follow Up Diagnostic Tests Pending * Lvqed-5-Rlbnsmuapgl 01/28/24 * MAXX w/Reflex if POS 01/28/24 [...] Future Scheduled Tests Laboratory* Magnesium Level 02/04/23 [facility] Appointment Date:02/29/2024 09:20:00 AM Scheduled Provider:Nisa Shepherd CNP Location:[facility] Appointment Type:[facility] Follow Up Future Scheduled Tests Laboratory* Magnesium Level 02/04/23 [facility] App[facility]ments Appointment Date:09/29/2024 09:45:00 AM Scheduled Provider:Verónica Ugarte MD [place] Appointment Type:[facility] Follow Up [facility] Evaluation + Plan note Future Appointments Appointment Date:03/30/2025 09:30:00 AM Scheduled Provider:Verónica Ugarte MD [place] Appointment Type:[facility] Follow Up [facility] Evaluation + Plan note Future Appointments Appointment Date:03/30/2025 09:30:00 AM Scheduled Provider:Verónica Ugarte MD [place] Appointment Type:[facility] Follow Up Diagnostic Tests Pending * Alpha Fetoprotein Tumor Marker 03/27/25 [facility] Evaluation + Plan note Future Appointments Appointment Date:01/10/2026 10:45:00 AM Scheduled Provider:Verónica Ugarte MD [place] Appointment Type:[facility] Follow Up Future Scheduled Tests Laboratory* Comprehensive Metabolic Panel 01/11/26 [facility] evaluation noteNo assessment information available [facility] Work Phone: evaluation note* Diagnosis Anemia, unspecified type- Primary [facility] Diagnosis Iron deficiency anemia due to chronic blood loss Iron deficiency anemia secondary to blood loss (chronic) [facility] Diagnosis Anemia, unspecified type- Primary Iron deficiency anemia secondary to inadequate dietary iron intake [facility] Diagnosis Iron deficiency anemia due to chronic blood loss- Primary Iron deficiency anemia secondary to blood loss (chronic) [facility] Diagnosis Iron deficiency anemia due to chronic blood loss- Primary Iron deficiency anemia secondary to blood loss (chronic) [facility] Diagnosis Iron deficiency anemia due to chronic blood loss- Primary Iron deficiency anemia secondary to blood loss (chronic) [facility] Diagnosis Iron deficiency anemia secondary to inadequate dietary iron intake- Primary [facility]* Diagnosis Iron deficiency anemia secondary to inadequate dietary iron intake- Primary [facility]* Diagnosis Onset Date Resolution Status Acute UTI acuteChronic kidney disease, stage III (moderate)acuteDiabetesacuteHypertensive urgencyacuteParesthesias in right handacuteSlurred speechacuteSyncopeacute [facility] Work Phone: evaluation note* Diagnosis Iron deficiency anemia secondary to inadequate dietary iron intake- Primary Stage 3b chronic kidney disease (HCC) [facility]* Diagnosis Iron deficiency anemia secondary to inadequate dietary iron intake- Primary Stage 3b chronic kidney disease (HCC) [facility]* Diagnosis Stage 3b chronic kidney disease (HCC)- Primary Iron deficiency anemia secondary to inadequate dietary iron intake [facility] Diagnosis Iron deficiency anemia due to chronic blood loss- Primary Iron deficiency anemia secondary to blood loss (chronic) [facility]* Diagnosis Iron deficiency anemia due to chronic blood loss- Primary Iron deficiency anemia secondary to blood loss (chronic) [facility]* Diagnosis Iron deficiency anemia, unspecified iron deficiency anemia type- Primary Anemia of chronic renal failure, unspecified CKD stage Thrombocytopenia (HCC) Thrombocytopenia, unspecified [facility]* Diagnosis Onset Date Resolution Status Anemia of renal disease acuteChronic kidney disease, stage III (moderate)acuteHyperlipidemiaacute [id number] hyperparathyroidismacuteType 2 diabetes mellitus with diabetic chronic kidney diseaseacute [facility] Work Phone: Evaluation note* Diagnosis Onset Date Resolution Status Anemia of renal disease acuteChronic kidney disease, stage III (moderate)acuteHyperlipidemiaacute SUL-[id number] hyperparathyroidismacuteType 2 diabetes mellitus with diabetic chronic kidney diseaseacuteAnemia of renal diseaseacuteChronic kidney disease, stage III (moderate)crkzuVpakntlgyglufwwlsdiVCY-[id number] acuteHypomagnesemiaacuteSecondary hyperparathyroidismacuteType 2 diabetes mellitus with diabetic chronic kidney diseaseacute [facility] Work Phone: Evaluation note* Diagnosis Iron deficiency anemia, unspecified iron deficiency anemia type- Primary Anemia of chronic renal failure, unspecified CKD stage [facility]* Diagnosis Onset Date Resolution Status Anemia of renal disease acuteChronic kidney disease, stage III (moderate)acuteHyperlipidemiaacute [id number] hyperparathyroidismacuteType 2 diabetes mellitus with diabetic chronic kidney diseaseacuteAnemia of renal diseaseacuteChronic kidney disease, stage III (moderate)wkjtaFdoqghbdtksswxsmukuZGN-[id number] acuteHypomagnesemiaacuteSecondary hyperparathyroidismacuteType 2 diabetes mellitus with diabetic chronic kidney diseaseacuteHeart palpitationsacute CDC-APGP-[id number] urgencyacuteSlurred speechacuteType 2 diabetes mellitus with diabetic chronic kidney diseaseacute [facility] Work Phone: Evaluation note* Diagnosis Transient ischemic attack- Primary Unspecified transient cerebral ischemia Palpitations Polyneuropathy Unspecified hereditary and idiopathic peripheral neuropathy documented in [facility] encounter [facility]* Diagnosis Onset Date Resolution Status Anemia of renal disease acuteChronic kidney disease, stage III (moderate)acuteHyperlipidemiaacute HypomagnesemiaacuteSecondary hyperparathyroidismacuteHeart palpitationsresolved Slurred speechresolved [facility] Work Phone: Evaluation note* Diagnosis Iron deficiency anemia, unspecified iron deficiency anemia type- Primary Thrombocytopenia (HCC) Thrombocytopenia, unspecified Stage 3b chronic kidney disease (HCC) [facility] Diagnosis Hearing loss, mixed, bilateral- Primary Mixed hearing loss, bilateral documented in this encounter [facility]* Diagnosis Iron deficiency anemia, unspecified iron deficiency anemia type- Primary [facility]* Diagnosis Transient ischemic attack- Primary Unspecified transient cerebral ischemia Polyneuropathy Unspecified hereditary and idiopathic peripheral neuropathy Carpal tunnel syndrome, bilateral upper limbs [facility] Diagnosis Iron deficiency anemia, unspecified iron deficiency anemia type- Primary Thrombocytopenia (HCC) Thrombocytopenia, unspecified Stage 3b chronic kidney disease (HCC) [facility]* Diagnosis Transient ischemic attack- Primary Unspecified transient cerebral ischemia Polyneuropathy Unspecified hereditary and idiopathic peripheral neuropathy Syncope and collapse Carpal tunnel syndrome, bilateral upper limbs [facility]* Diagnosis Anemia, unspecified type- Primary Iron deficiency anemia, unspecified iron deficiency anemia type Stage 3b chronic kidney disease (HCC) Anemia in stage 3a chronic kidney disease (HCC) [facility]* Diagnosis Anemia, unspecified type- Primary [facility]* Diagnosis Onset Date Resolution Status Admit Date Anemia of renal disease acuteAugust 2024 9:42amChronic kidney disease, stage III (moderate)acute July 05, 2025 9:42amHyperlipidemiaacuteAugust 2024 9:42am HypomagnesemiaacuteAugust 2024 9:42amSecondary hyperparathyroidismacute July 05, 2025 9:42amType 2 diabetes mellitus with diabetic chronic kidney diseaseacuteAugus2024 9:42amHypertensive chronic kidney disease with stage 1 through stage 4 chronic kiinactiveAugust 2024 9:42am [facility] Work Phone: History general Narrative - Reported* Type Description Date Medical History Gastroesophageal ref lux disease, esophagitis presence not specified Medical HistoryRLS (restless legs syndrome)Medical HistoryBenign essential HTN Medical HistoryHypercholesterolemiaMedical HistoryType 2 diabetes mellitus without complication, without long-term current use of insulinMedical HistoryOSA (obstructive sleep apnea)Surgical HistoryhysterectomySurgical History cholecystectomySurgical Historyknee arthroscopy [employer] [facility] [employer] [facility] Other Hospital course Narrative No data available for this section [facility] Discharge instructions No data available for this section [facility] Discharge instructions Additional Instructions [facility] blood [facility] and [facility] Work Phone: Progress note No data available for this section [facility]narrative)No reason for referral [facility] Work Phone: Advance Directives No Advanced [...] M10.00D 508E11.9 E78.6 weakness 24 hr heart monitorReason for VisitAcute UTI Chronic kidney disease, stage III (moderate) Diabetes Hypertensive urgency Paresthesias in right hand Slurred speech Syncope Chief Complaint Z79.89/I12.9/M10.00/ E78.2/E11.22/E11.9/N18.3 Chief Complaint Z79.89/I12.9/M10.00/ E78.2/E11.22/E11.9/N18.3 Sleep apnea annual follow up Chief Complaint RENAL 6 Week F/U heart palpatations See orderReason for VisitAnemia of renal disease Chronic kidney disease, stage III (moderate) Hyperlipidemia Hypomagnesemia Secondary hyperparathyroidism Heart palpitations Slurred speech Chief Complaint Admit Date See order September 19, 2024 8 :41am g45.9 r00.2 October 06, 2024 12:33pm COLTEN/ ANNUAL November 14, 2024 12:57pm patient has orders December 15, 2024 9 :35am Reason for Visit Admit Date Essential (primary) hypertension [facility] r 2023 12:57pm Insomnia November 14, 2024 [...] for Visit Admit Date Essential (primary) hypertension [facility] r 2023 12:57pm Insomnia November 14, 2024 [...] for Visit Admit Date Essential (primary) hypertension [facility] 2023 12:57pm Insomnia November 14, 2024 12:57pm [...] N25.81 E78.5 June 26, 2025 9: 19am Chief Complaint Admit Date R63.4 K21.9 D64.9 K74.00 June 08, 2025 12:08pm E83.42 N25.81 E78.5 June 26, 2025 9: 19am renal 6 months July 05, 2025 9: 42am Reason for Visit Admit Date Anemia of renal disease July 05 9:42am Chronic kidney disease, stage III (moder ate) July 05, 2025 9:42am Hyperlipidemia July 05, 2025 9: 42am Hypomagnesemia July 05, 2025 9: 42am Secondary hyperparathyroidism June 9:42am Type 2 diabetes mellitus wit h diabetic chronic kidney disease July 05, 2025 9:42am Hypertensive chronic kidney disease with stage 1 through stage 4 chronic ki July 05, 2025 9:42am Chief Complaint Admit Date R63.4 K21.9 D64.9 K74.00 June 08, 2025 12:08pm E83.42 N25.81 E78.5 June 26, 2025 9: 19am renal 6 months July 05, 2025 9: 42am See order July 19, 2025 3:48pm Reason for Visit Admit Date Anemia of renal disease July 05 9:42am Chronic kidney disease, stage III (moder ate) July 05, 2025 9:42am Hyperlipidemia July 05, 2025 9: 42am Hypomagnesemia July 05, 2025 9: 42am Secondary hyperparathyroidism June 9:42am Type 2 diabetes mellitus wit h diabetic chronic kidney disease July 05, 2025 9:42am Hypertensive chronic kidney disease with stage 1 through stage 4 chronic ki July 05, 2025 9:42am Carpal tunnel syndrome, right July 24, 2025 9:10am Degenerative disc disease, lumbar Septem 2024 9:10am Lacunar infarction July 24, 2025 9:10am Polyneuropathy July 24, 2025 9:10am Syncope July 24, 2025 9:10am Assessments No Assessments Information Available Medications Administered Section Medication OrderMAR ActionAction DateDoseRateSite iron sucrose 300 mg in NaCl 0.9% 250 mL (VENOFER) 300 mg, INTRAVENOUS, at 166.67 mL/hr, Administer over 90 Minutes, ONCE, 1 dose, On [place] 10/16/22 at 1100, Please conduct a 30 minute post dose observation. New Bag/Syringe/Gpeudu6310/16/2022 10:55 AM [id number] mg166.67 mL/hrMedication Order MAR ActionAction DateDoseRateSite iron sucrose 300 mg in NaCl 0.9% 250 mL (VENOFER) 300 mg, INTRAVENOUS, at 166.67 mL/hr, Administer over 90 Minutes, ONCE, 1 dose, On [facility] 10/23/22 at 1400, Please conduct a 30 minute post dose observation. New Bag/Syringe/Jbqxwp2010/23/2022 1:45 PM [id number] mg166.67 mL/hrMedication Order MAR ActionAction DateDoseRateSite iron sucrose 300 mg in NaCl 0.9% 250 mL (VENOFER) 300 mg, INTRAVENOUS, at 166.67 mL/hr, Administer over 90 Minutes, ONCE, 1 dose, On [facility] 10/30/22 at 1330, Please conduct a 30 minute post dose observation. New Bag/Syringe/Lhdvcd9210/30/2022 1:32 PM [id number] mg166.67 mL/hr Family History No Family History Records Found Relationship Condition Age at Onset Recorded Date/T elsie father Malignant neoplasm Unknown Not SpecifiedDiabetes mellitusUnknownCongestive heart failureUnknownChronic obstructive pulmonary diseaseUnknownMalignant neoplasmUnknownCerebrovascular accident (CVA)UnknownbrotherDiabetes mellitusUnknownbrotherMultiple sclerosis Unknown Relationship Condition Age at Onset Recorded Date/T elsie father Malignant neoplasm Unknown Not SpecifiedDiabetes mellitusUnknownCongestive heart failureUnknownChronic obstructive pulmonary diseaseUnknownMalignant neoplasmUnknownCerebrovascular accident (CVA)UnknownbrotherDiabetes mellitusUnknownbrotherMultiple sclerosis UnknownfatherDeceasedUnknownNot SpecifiedDeceasedUnknown Relationship Condition Age at Onset Recorded Date/T elsie father Malignant neoplasm Unknown motherDiabetes mellitusUnknownCongestive heart failureUnknownChronic obstructive pulmonary diseaseUnknownMalignant neoplasmUnknownCerebrovascular accident (CVA) UnknownbrotherDiabetes mellitusUnknownbrotherMultiple sclerosisUnknownfather DeceasedUnknownmotherDeceasedUnknown Summary Purpose Reason for Referral SpecialtyDiagnoses / ProceduresReferred By ContactReferred To ContactCardiology Diagnoses Transient ischemic attack Palpitations Procedures Cardiac event monitor Queta Prieto, [employer] [address] [place] [address] Referral IDStatusReasonStart DateExpiration DateVisits RequestedVisits [id number] [id number] Additional Source Comments Care Team (unrecognized sect ion and content) Team Status: Active Member Role Status Dates Vinay Matta , DO Primary Care Provider Active Team Status: Active Member Role Status Dates Vinay Matta , Primary Care Provider Active Start: June 08, 2025 ZI Berryeflindaing ProviderActiveStart: June 08, 2025 Scott Berry ProviderActiveStart: June 08, 2025 Bradley Rowland MDAttdestinee ProviderActiveStart: June 08, 2025 Team Status: Inactive Member Role Status Dates Vinay Matta , Primary Care Provider Active Start: June 26, 2025 End: June 26, 2025Daryan Matta DOAttending ProviderActiveStart: June 26, 2025 End: June 26Scott Tyson ProviderActiveStart: June 26, 2025 End: June 26, 2025 Team Status: Inactive Member Role Status Dates Vinay Matta , Primary Care Provider, Attending Edgar manzo Active Team Status: Inactive Member Role Status Dates Vinay Matta , Primary Care Provider, Referring Edgar manzo Active Referral SelfAttending ProviderActive Team Status: Inactive Member Role Status Dates Vinay Matta , DO Primary Care Provider Active KARO Olmstead-Debra ProviderActive Team Status: Inactive Member Role Status Dates Vinay Matta , DO Primary Care Provider Active KARO Olmstead-CAttentalia ProviderActiveTeam MemberRelationshipSpecialty Start DateEnd Date Nisa Shepherd, [address] [place] [address] PCP - GeneralFami Iwjiclir59/7/22Team MemberRelationshipSpecialtyStart DateEnd Date Nisa Shepherd, MANAGER [employer] [address] [place] [address] PCP - [facility] Ndrvjnna00/7/22Team MemberRelationshipSpecialtyStart DateEnd Date Nisa Shepherd, MANAGER [employer] [address] [place] [address] PCP - [facility]09/22/22Team MemberRelationshipSpecialtyStart DateEnd Date Nisa Shepherd, MANAGER [employer] [address] [place] [address] PCP - [facility]09/22/22 Team Status: Inactive Member Role Status Dates Vinay Matta , DO Primary Care Provider Active Anh Delcid NPAttending ProviderActiveTeam MemberRelationshipSpecialtyStart DateEnd Date Nisa Shepherd, MANAGER [employer] [address] [place] [address] PCP - [facility] Sankdsoh58/7/22Team MemberRelationshipSpecialtyStart DateEnd Date Nisa Shepherd, MANAGER [employer] [address] [place] [address] PCP - [facility] Qwwdvtsn76/7/22Team MemberRelationshipSpecialtyStart DateEnd Date Nisa Shepherd, MANAGER [employer] [address] [place] [address] [facility] Tushecdd62/7/22Team MemberRelationshipSpecialtyStart DateEnd Date Nisa Shepherd, MANAGER [employer] [address] [place] [address] PCP - [facility]09/22/22Team MemberRelationshipSpecialtyStart DateEnd Date Nisa Shepherd, JENY [address] [facility] [place] [address] PCP - [facility]09/22/22Team MemberRelationshipSpecialtyStart DateEnd Date Nisa Shepherd CNP [address] [facility] [place] [address] PCP - [facility]09/22/22 Team Status: Inactive Member Role Status Dates Vinay Matta , DO Primary Care Provider Active Alla Osborn ProviderActiveTeam MemberRelationshipSpecialtyStart DateEnd Date Nisa Shepherd CNP [address] [facility] [place] [address] PCP - [facility]09/22/22 Team Status: Inactive Member Role Status Dates Vinay Matta , DO Primary Care Provider Active Consuelo Wilcox ProviderActiveKimberly Arteaga MDAdmel Provider, Attending ProviderActiveAntoni Vicente ProviderActive Team Status: Active Member Role Status Dates Vinay Matta , DO Primary Care Provider Active DIANN AmatoBCAttdestinee ProviderActive Team Status: Inactive Member Role Status Dates Vinay Matta , DO Primary Care Provider Active FERDINAND Amato-BCAttending ProviderActiveTeam MemberRelationship SpecialtyStart DateEnd Date Nisa Shepherd CNP [address] [place] [address] PCP - [facility]09/22/22Team MemberRelationshipSpecialtyStart DateEnd Date Nisa Shepherd CNP [address] [facility] [place] [address] PCP - [facility]09/22/22Team MemberRelationshipSpecialtyStart DateEnd Date Nisa Shepherd CNP [address] [place] [address] PCP - [facility]09/22/22Team MemberRelationshipSpecialtyStart DateEnd Date Nisa Shepherd CNP [address] [place] [address] PCP - [facility]09/22/22Team MemberRelationshipSpecialtyStart DateEnd Date Nisa Shepherd CNP [address] [place] [address] PCP - [facility]09/22/22Team MemberRelationshipSpecialtyStart DateEnd Date Nisa Shepherd CNP [address] [place] [address] PCP - [facility]09/22/22Team MemberRelationshipSpecialtyStart DateEnd Date Nisa Shepherd CNP [address] [place] [address] PCP - [facility]09/22/22 Team Status: Inactive Member Role Status Dates Vinay Matta DO Primary Care Provide r, Attending Provider Active Start: February 11, 2024 End: February 11, 2024Team MemberRelationshipSpecialtyStart DateEnd Date Nisa Shepherd CNP [address] [place] [address] PCP - [facility]09/22/22Team MemberRelationshipSpecialtyStart DateEnd Date Nisa Shepherd CNP [address] [place] [address] PCP - [facility]09/22/22Team MemberRelationshipSpecialtyStart DateEnd Date Nisa Shepherd CNP [address] [place] [address] [facility] - [facility]09/22/22Team MemberRelationshipSpecialtyStart DateEnd Date Nisa Shepherd CNP [address] [place] [address] [facility] - [facility]09/22/22 Team Status: Inactive Member Role Status Dates Vinay Matta DO Primary Care Provide r, Referring Provider Active Start: May 11, 2024 End: May 11bdul Terry , MDAttending ProviderActiveStart: May 11, 2024 End: May 11, 2024 Team Status: Inactive Member Role Status Dates Vinay Matta DO Primary Care Provider Active Start: May 24, 2024 End: May 24bdul Terry , MDAttending ProviderActiveStart: May 24, 2024 End: May 24arrin R Sheila , DOOther ProviderActiveStart: May 24, 2024 End: May 24, 2024 Team Status: Inactive Member Role Status Dates Vinay Matta DO Primary Care Provider Active Start: July 04, 2024 End: July 04bdul Terry , MDAttending ProviderActiveStart: July 04, 2024 End: July 04, 2024Team MemberRelationshipSpecialtyStart DateEnd Date Nisa Shepherd CNP [address] [place] [address] PCP - [facility]09/22/22 Team Status: Active Member Role Status Dates Vinay Matta DO Primary Care Provider Active Start: July 21, 2024 Bakari Barboza , DOEmergency ProviderActiveStart: July 21, 2024 Farrukh Coughlin , RESActiveStart: July 21, 2024 Comfort Monteiro , MDAdmit Provider, Attending ProviderActiveStart: July 21, 2024 Ottoniel Bland , DOOther ProviderActiveStart: July 21, 2024 Team Status: Inactive Member Role Status Dates Vinay Matta DO Primary Care Provider Active Start: July 21, 2024 End: July 22, 2024Bakari Barboza , DOEmergency ProviderActiveStart: July 21, 2024 End: July 22, 2024Farrukh Coughlin , RESActiveStart: July 21, 2024 End: July 22, 2024Comfort Monteiro , MDAdmit Provider, Attending Provider ActiveStart: July 21, 2024 End: July 22rohini Bland , DOOther ProviderActiveStart: July 21, 2024 End: July 22, 2024Team MemberRelationshipSpecialtyStart DateEnd Date JwhomerVinay [address] [place] [address] [facility] - [facility]01/13/24 Trae Mccarty MD [address] [place] [address] PCP - [facility]11/16/23Team MemberRelationshipSpecialtyStart DateEnd Date JwhomerVinay [address] [place] [address] [facility] - [facility]01/13/24 Trae Mccarty MD [address] [place] [address] PCP - [facility]11/16/23 Team Status: Inactive Member Role Status Dates Vinay Matta DO Primary Care Provide r, Attending Provider Active Start: September 19, 2024 End: September 19, 2024Team MemberRelationshipSpecialtyStart DateEnd Date Nisa Shepherd CNP [address] [place] [address] PCP - [facility]09/22/22Team MemberRelationshipSpecialtyStart DateEnd Date Nisa Shepherd CNP [address] [place] [address] PCP - [facility]09/22/22Team MemberRelationshipSpecialtyStart DateEnd Date Vinay Matta [address] [facility] [place] [address] PCP - [facility]01/13/24 Trae Mccarty MD [address] [facility] [place] [address] PCP - [facility]11/16/23 Team Status: Inactive Member Role Status Dates Vinay Matta DO Primary Care Provider Active Start: October 06, 2024 End: October 06, 2024FeCheryl Ann ProviderActiveStart: October 06, 2024 End: October 06, 2024 Team Status: Inactive Member Role Status Dates Vinay Matta DO Primary Care Provider Active Start: November 14, 2024 End: November 14Miranda Sherman ProviderActiveStart: November 14, 2024 End: November 14, 2024 Team Status: Inactive Member Role Status Dates Vinay Matta DO Primary Care Provide r, Attending Provider Active Start: December 15, 2024 End: December 15, 2024 Team Status: Inactive Member Role Status Dates Vinay Matta DO Primary Care Provider Active Start: December 27, 2024 End: December 27bdul Terry , MDAttending ProviderActiveStart: December 27, 2024 End: December 27, 2024 Team Status: Inactive Member Role Status Dates Vinay Matta DO Primary Care Provide r, Attending Provider Active Start: December 28, 2024 End: December 28bdiliana Terry , MDReferring ProviderActiveStart: December 28, 2024 End: December 28, 2024 Team Status: Inactive Member Role Status Dates Vinay Matta DO Primary Care Provide r, Referring Provider Active Start: December 28, 2024 End: December 28, 2024Referral SelfAttending ProviderActiveStart: December 28, 2024 End: December 28, 2024Team MemberRelationshipSpecialtyStart DateEnd Date Vinay Matta [address] [facility] [place] [address] [facility] Trae Mccarty MD [address] [place] [address] PCP - [facility]11/16/23Team MemberRelationshipSpecialtyStart DateEnd Date Vinay Matta [address] [facility] [place] [address] [facility] Trae Mccarty MD [address] [place] [address] PCP - [facility]11/16/23Team MemberRelationshipSpecialtyStart DateEnd Date Nisa Shepherd CNP [address] [place] [address] [place] [address] [facility] - [facility]Team MemberRelationshipSpecialtyStart DateEnd Date Nisa Shepherd MANAGER [employer]PLICATIONS [address] [place] [address] PCP - [facility]09/22/22 Team Status: Inactive Member Role Status Dates Vinay Matta DO Primary Care Provider Active Start: February 08, 2025 End: February 08ndlarissa Bruner MDAttending ProviderActiveStart: February 08, 2025 End: February 08, 2025Team MemberRelationshipSpecialtyStart DateEnd Date Vinay Matta [address] [facility] [place] [address] PCP - [facility]01/13/24 Trae Mccarty MD [address] [facility] [place] [address] [facility]11/16/23Team MemberRelationshipSpecialtyStart DateEnd Date Nisa Shepherd MANAGER CLINICAL APPLICATIONS [address] [facility] [facility] [address] PCP - [facility]09/22/22 Team Status: Inactive Member Role Status Dates Vinay Matta DO Primary Care Provider Active Start: June 08, 2025 End: June 08, 2025Momacario Ugarte MDAttending ProviderActiveStart: June 08, 2025 End: June 08, 2025ZI Berryeferring ProviderActiveStart: June 08, 2025 End: June 08, 2025 Team Status: Inactive Member Role Status Dates Vinay Matta DO Primary Care Provider Active Start: July 05, 2025 End: July 05azalea Stewart MDAttending ProviderActiveStart: July 05, 2025 End: July 05, 2025 Team Status: Inactive Member Role Status Dates Vinay Matta , Primary Care Provider Active Start: July 19, 2025 End: July 19, 2025Daryan Matta DOAttending ProviderActiveStart: July 19, 2025 End: July 19, 2025 Team Status: Inactive Member Role Status Dates Vinay Matta , Primary Care Provider Active Start: July 24, 2025 End: July 24umalorraine Huffman , Attending ProviderActiveStart: July 24, 2025 End: July 24, 2025 Goals (unrecognized section and content) Goals may be documented in a n alternate section Source Comments (unrecognize d section and content) In the event this informatio n is protected by the Federal Confidentiality of Alcohol and Drug Abuse Patient Records regulations: The Federal rules restrict any use of the information to criminally investigate or prosecute any alcohol or drug abuse patient.[facility] SystemIn the event this information is protected by the Federal Confidentiality of Alcohol and Drug Abuse Patient Records regulations: The Federal rules restrict any use of the information to criminally investigate or prosecute any alcohol or drug abuse patient.[facility] SystemIn the event this information is protected by the Federal Confidentiality of Alcohol and Drug Abuse Patient Records regulations: The Federal rules restrict any use of the information to criminally investigate or prosecute any alcohol or drug abuse patient.[facility] SystemIn the event this information is protected by the Federal Confidentiality of Alcohol and Drug Abuse Patient Records regulations: The Federal rules restrict any use of the information to criminally investigate or prosecute any alcohol or drug abuse patient.[facility] SystemIn the event this information is protected by the Federal Confidentiality of Alcohol and Drug Abuse Patient Records regulations: The Federal rules restrict any use of the information to criminally investigate or prosecute any alcohol or drug abuse patient.[facility] SystemIn the event this information is protected by the Federal Confidentiality of Alcohol and Drug Abuse Patient Records regulations: The Federal rules restrict any use of the information to criminally investigate or prosecute any alcohol or drug abuse patient.[facility] SystemIn the event this information is protected by the Federal Confidentiality of Alcohol and Drug Abuse Patient Records regulations: The Federal rules restrict any use of the information to criminally investigate or prosecute any alcohol or drug abuse patient.[facility] SystemIn the event this information is protected by the Federal Confidentiality of Alcohol and Drug Abuse Patient Records regulations: The Federal rules restrict any use of the information to criminally investigate or prosecute any alcohol or drug abuse patient.[facility] SystemIn the event this information is protected by the Federal Confidentiality of Alcohol and Drug Abuse Patient Records regulations: The Federal rules restrict any use of the information to criminally investigate or prosecute any alcohol or drug abuse patient.[facility] SystemIn the event this information is protected by the Federal Confidentiality of Alcohol and Drug Abuse Patient Records regulations: The Federal rules restrict any use of the information to criminally investigate or prosecute any alcohol or drug abuse patient.[facility] SystemIn the event this information is protected by the Federal Confidentiality of Alcohol and Drug Abuse Patient Records regulations: The Federal rules restrict any use of the information to criminally investigate or prosecute any alcohol or drug abuse patient.[facility] SystemIn the event this information is protected by the Federal Confidentiality of Alcohol and Drug Abuse Patient Records regulations: The Federal rules restrict any use of the information to criminally investigate or prosecute any alcohol or drug abuse patient.[facility] SystemIn the event this information is protected by the Federal Confidentiality of Alcohol and Drug Abuse Patient Records regulations: The Federal rules restrict any use of the information to criminally investigate or prosecute any alcohol or drug abuse patient.[facility] SystemIn the event this information is protected by the Federal Confidentiality of Alcohol and Drug Abuse Patient Records regulations: The Federal rules restrict any use of the information to criminally investigate or prosecute any alcohol or drug abuse patient.[facility] SystemIn the event this information is protected by the Federal Confidentiality of Alcohol and Drug Abuse Patient Records regulations: The Federal rules restrict any use of the information to criminally investigate or prosecute any alcohol or drug abuse patient.[facility] SystemIn the event this information is protected by the Federal Confidentiality of Alcohol and Drug Abuse Patient Records regulations: The Federal rules restrict any use of the information to criminally investigate or prosecute any alcohol or drug abuse patient.[facility] SystemIn the event this information is protected by the Federal Confidentiality of Alcohol and Drug Abuse Patient Records regulations: The Federal rules restrict any use of the information to criminally investigate or prosecute any alcohol or drug abuse patient.[facility] SystemIn the event this information is protected by the Federal Confidentiality of Alcohol and Drug Abuse Patient Records regulations: The Federal rules restrict any use of the information to criminally investigate or prosecute any alcohol or drug abuse patient.[facility] SystemIn the event this information is protected by the Federal Confidentiality of Alcohol and Drug Abuse Patient Records regulations: The Federal rules restrict any use of the information to criminally investigate or prosecute any alcohol or drug abuse patient.[facility] SystemIn the event this information is protected by the Federal Confidentiality of Alcohol and Drug Abuse Patient Records regulations: The Federal rules restrict any use of the information to criminally investigate or prosecute any alcohol or drug abuse patient.[facility] SystemIn the event this information is protected by the Federal Confidentiality of Alcohol and Drug Abuse Patient Records regulations: The Federal rules restrict any use of the information to criminally investigate or prosecute any alcohol or drug abuse patient.[facility] SystemIn the event this information is protected by the Federal Confidentiality of Alcohol and Drug Abuse Patient Records regulations: The Federal rules restrict any use of the information to criminally investigate or prosecute any alcohol or drug abuse patient.[facility] SystemIn the event this information is protected by the Federal Confidentiality of Alcohol and Drug Abuse Patient Records regulations: The Federal rules restrict any use of the information to criminally investigate or prosecute any alcohol or drug abuse patient.[facility] SystemIn the event this information is protected by the Federal Confidentiality of Alcohol and Drug Abuse Patient Records regulations: The Federal rules restrict any use of the information to criminally investigate or prosecute any alcohol or drug abuse patient.[facility] SystemIn the event this information is protected by the Federal Confidentiality of Alcohol and Drug Abuse Patient Records regulations: The Federal rules restrict any use of the information to criminally investigate or prosecute any alcohol or drug abuse patient.[facility] SystemIn the event this information is protected by the Federal Confidentiality of Alcohol and Drug Abuse Patient Records regulations: The Federal rules restrict any use of the information to criminally investigate or prosecute any alcohol or drug abuse patient.[facility] SystemIn the event this information is protected by the Federal Confidentiality of Alcohol and Drug Abuse Patient Records regulations: The Federal rules restrict any use of the information to criminally investigate or prosecute any alcohol or drug abuse patient.[facility] SystemIn the event this information is protected by the Federal Confidentiality of Alcohol and Drug Abuse Patient Records regulations: The Federal rules restrict any use of the information to criminally investigate or prosecute any alcohol or drug abuse patient.[facility] SystemIn the event this information is protected by the Federal Confidentiality of Alcohol and Drug Abuse Patient Records regulations: The Federal rules restrict any use of the information to criminally investigate or prosecute any alcohol or drug abuse patient.[facility] SystemIn the event this information is protected by the Federal Confidentiality of Alcohol and Drug Abuse Patient Records regulations: The Federal rules restrict any use of the information to criminally investigate or prosecute any alcohol or drug abuse patient.[facility] SystemIn the event this information is protected by the Federal Confidentiality of Alcohol and Drug Abuse Patient Records regulations: The Federal rules restrict any use of the information to criminally investigate or prosecute any alcohol or drug abuse patient.[facility] SystemIn the event this information is protected by the Federal Confidentiality of Alcohol and Drug Abuse Patient Records regulations: The Federal rules restrict any use of the information to criminally investigate or prosecute any alcohol or drug abuse patient.[facility] SystemIn the event this information is protected by the Federal Confidentiality of Alcohol and Drug Abuse Patient Records regulations: The Federal rules restrict any use of the information to criminally investigate or prosecute any alcohol or drug abuse patient.[facility] SystemIn the event this information is protected by the Federal Confidentiality of Alcohol and Drug Abuse Patient Records regulations: The Federal rules restrict any use of the information to criminally investigate or prosecute any alcohol or drug abuse patient.[facility] SystemIn the event this information is protected by the Federal Confidentiality of Alcohol and Drug Abuse Patient Records regulations: The Federal rules restrict any use of the information to criminally investigate or prosecute any alcohol or drug abuse patient.[facility] SystemIn the event this information is protected by the Federal Confidentiality of Alcohol and Drug Abuse Patient Records regulations: The Federal rules restrict any use of the information to criminally investigate or prosecute any alcohol or drug abuse patient.[facility] SystemIn the event this information is protected by the Federal Confidentiality of Alcohol and Drug Abuse Patient Records regulations: The Federal rules restrict any use of the information to criminally investigate or prosecute any alcohol or drug abuse patient.[facility] Reason for Visit (unrecogniz ed section and content) ReasonCommentsAnemiaNew patient consultationReasonCommentsResults, LabReason CommentsBenefits InvestigationReasonCommentsAnemiaSpecialtyDiagnoses / ProceduresReferred By ContactReferred To Contact Diagnoses Iron deficiency anemia due to chronic blood loss Procedures IRON SUCROSE INJECTION PER 1 MG Henry Walker MD [address] [place] [address] [address] [place] [address] Referral IDStatusReasonStart DateExpiration DateVisits RequestedVisits [id number] for [id number] IDStatus ReasonStart DateExpiration DateVisits RequestedVisits [id number] month follow upReasonCommentsAnemiaFollow upReasonCommentsAnemia2 month follow up ReasonCommentsPatient UpdateReasonCommentsAnemia3 month follow upReasonComments IV IronSpecialtyDiagnoses / ProceduresReferred By ContactReferred To Contact Diagnoses Iron deficiency anemia due to chronic blood loss Procedures IRON SUCROSE INJECTION PER 1 MG Daksha Bridges PA-C [address] [place] [address] [place] [address] [address] [place] [address] Referral IDStatusReasonStart DateExpiration DateVisits RequestedVisits [id number] 3b chronic kidney diseaseReasonCommentsLab OrdersReasonCommentsTransient Ischemic AttackReasonOnset DateCommentsResults, Lab01/09/2025ReasonOnset DateComments labs/follow up04/11/2025 INFORMATION SOURCE (unrecogn ized section and content) DATE CREATED AUTHOR 03/30/2023 [facility] DATE CREATED AUTHOR AUTHOR'S ORGANIZ ATION 05/12/2023 [facility] DATE CREATED AUTHOR AUTHOR'S ORGANIZ ATION 03/27/2025 [facility] DATE CREATED AUTHOR AUTHOR'S ORGANIZ ATION 03/28/2025 [facility] DATE CREATED AUTHOR AUTHOR'S ORGANIZ ATION 04/01/2025 [facility] DATE CREATED AUTHOR AUTHOR'S ORGANIZ ATION 05/10/2025 [facility] DATE CREATED AUTHOR AUTHOR'S ORGANIZ ATION 06/09/2025 [facility] DATE CREATED AUTHOR AUTHOR'S ORGANIZ ATION 07/13/2025 [facility] DATE CREATED AUTHOR AUTHOR'S ORGANIZ ATION 08/04/2025 [facility] DATE CREATED AUTHOR AUTHOR'S ORGANIZ ATION 08/09/2025 [facility] Inactive Administered Medications - up to 3 most recent administrations Administered Medications (un recognized section and content) Medication OrderMAR ActionAction DateDoseRateSite iron sucrose 300 mg in NaCl 0.9% 250 mL (VENOFER) 300 mg, INTRAVENOUS, at 166.67 mL/hr, Administer over 90 Minutes, ONCE, 1 dose, On [facility] 02/18/24 at 1000, Please conduct a 30 minute post dose observation. Refrigerate New Bag/Syringe/[id number]/18/2024 10:13 AM [id number] mg166.67 mL/hrMedication Order MAR ActionAction DateDoseRateSite iron sucrose 300 mg in NaCl 0.9% 250 mL (VENOFER) 300 mg, INTRAVENOUS, at 166.67 mL/hr, Administer over 90 Minutes, ONCE, 1 dose, On [facility] 02/25/24 at 1030, Please conduct a 30 minute post dose observation. Refrigerate New Bag/Syringe/[id number]/25/2024 10:18 AM [id number] mg166.67 mL/hr FOR RECORDS PERTAINING TO PATIENTS WHO [...] BE BASED ON THE PRIMARY CLINICAL RECORDS. [employer] provides no warranty or guarantee of the accuracy or completeness of information in this document.
== END 2025-10-03 14:36 | disposition home or self-care (01) ==
LOC: WC 14:35
PROVIDERS: PCP Family Medicine; Visit Provider Physician Assistant
DX: B35.1 Tinea unguium (principal); R09.89 Other specified symptoms and signs involving the circulatory and respiratory systems; E11.40 Type 2 diabetes mellitus with diabetic neuropathy, unspecified
CPT/HCPCS: 11721

== ENCOUNTER 2025-10-09 09:02 | Day surgery (SDC) | payer OTHER, SELFPAY ==
--- OUTSIDE RECORDS SUMMARY | 2025-10-09 09:05 | XMS_ITS | Clinical Summary ---
Author Organization [facility] Address [address] [place] [address] Care Team Providers Care Film Tests Checker Name Role Phone Nisa Shepherd CNP Primary Care Provider [phone]- [phone] Allergies Active AllergyReactionsCriticalityNoted DateCommentsAcetaminophen-CodeineOther: See IyjmcsmvYcdw00/16/2022 pt states she is unwilling to try even plain tylenol after this experience even though she states she took tylenol prior to this and had no problems CodeineOther: See Kkmbzbrr98/11/2022 Upset stomach Medications MedicationSigDispense QuantityRefillsLast FilledStart DateEnd [...] Problems ProblemNoted DateDiagnosed DateStage 3b chronic kidney ghsduze5701/29/2024Iron deficiency anemia due to chronic blood loss10/03/2022 Encounters DateTypeDepartmentCare ViaiLjnzixslbyr17/23/2025Results Follow-Up Hematology/Oncology [address] [place] [address] [place] [address] Daksha Balderas PA-C Kltlvdv9908/07/2025 10:30 AM EDTVisit (SP) Office Hematology/Oncology [address] [place] [address] [place] [address] Daksha Balderas PA-C Iron deficiency anemia, unspecified iron deficiency anemia type (Primary Dx); Anemia in stage 3a chronic kidney disease (HCC); Cofmvozzqwcslbcb01/22/2025Travelfrom Last 3 Months Immunizations ImmunizationAdministration DatesNext Dueinfluenza (HD-IIV3) vaccine, age 65+ yr, high dose, trivalent, PF (FLUZONE HIGH-DOSE)09/18/2016influenza (HD-IIV4) vaccine, age 65+ yr, high dose, quadrivalent, PF (FLUZONE HIGH-DOSE)11/25/2023, 08/27/2022,09/26/2021influenza (IIV3) vaccine, trivalent (AFLURIA, FLULAVAL, FLUVIRIN, FLUZONE)10/17/2015influenza (IIV4) vaccine, age 6 mo - 64 yr, quadrivalent, PF (AFLURIA, FLUARIX, FLULAVAL, FLUZONE)08/16/2018influenza (LAIV) vaccine, nasal, unspecified xjkwaeqqoni77/01/2018pneumococcal polysaccharide (PPV23) vaccine, 23 valent (PNEUMOVAX 23)08/16/2018 Family History Medical HistoryRelationCommentsLung CancerFatherCongenital heart diseaseMother RelationStatusCommentsFatherMother Social History Tobacco UseTypesPacks/DayYears UsedDateSmoking Tobacco: NeverPassive Smoke Exposure: PastSmokeless Tobacco: Never Tobacco Cessation:Counseling Given: Not Answered Alcohol UseStandard Drinks/WeekCommentsNever0 (1 standard drink = 0.6 oz pure alcohol)PHQ-2AnswerDate RecordedPHQ-2 pxxtd2344Area Deprivation Index AnswerDate RecordedNational Score (1-100), lower number is lower risk80 05/01/2023State Score (1-10), lower number is lower zmzc7793Data from: https://www.neighborhoodatlas.medicine.[facility].edu/. Last address used for [address]CommentsNoSex and Gender Information ValueDate RecordedSex Assigned at BirthNot on fileLegal LlhKuqvhy00/07/2022 10:39 AM ESTGender IdentityNot on fileSexual OrientationNot on file Last Filed Vital Signs Vital SignReadingTime TakenCommentsBlood Lfbtfdwn687/5909 10:30 AM EDT Trbny2438 10:30 AM GBFPulcqndmymq27.5 ??C (97.7 ??F)08/07/2025 10:30 AM EDTRespiratory Tafg560708/07/2025 10:30 AM EDTOxygen Woxaivuzub95%08/07/2025 10:30 AM EDTInhaled Oxygen Concentration--Jdqigw469.9 kg (222 lb 7.1 oz)08/07/2025 10:30 AM ZVTJvmnbp696 cm (5' 2.21 )04/25/2025 10:47 AM EDTBody Mass Index40.42 04/25/2025 10:47 AM EDT Plan of Treatment DateTypeDepartmentCare Team (Latest Contact Info)Qrapzylzodw62/15/2025 9:45 AM ESTOffice Visit [facility] [address] [address] lab10/30/2025 10:00 AM ESTVisit (SP) Office Hematology/Oncology [address] [address] Daksha Balderas, PA-C [address] [place] [address] 3 month follow up with Daksha and labHealth MaintenanceDue DateLast DoneComments Annual PCP Team Chronic Disease Visit1966Anxiety Xaiiyfuny08/14/1967 Depression Fxaaargrk81/14/1967Hepatitis C Vzglalpzf26/14/1967DTaP,Tdap,Td Vaccine (1 - Tdap)1967Shingrix Vaccine (1 of 2)1998Bone Density Hcgwgopva61/14/2014Pneumococcal Vaccine: 50+ (2 of 2 - PCV) Advance Directive Sfeujwkznn77/01/2025Medicare Advantage Annual Wellness Visit 11/16/2024ovid-19 Vaccine ( season)9/, 02/05/2021, 01/14/2021Influenza Vaccine (#1)/07/2024, 11/25/2023, 08/27/2022, Additional history existsHemoglobin/Cjqpveklax11, 04/18/2025, 04/07/2025, Additional history existsSerum Jrzjykincf61/22/202609/, 04/18/2025, 04/07/2025, Additional history existsDiabetes Wdseybwen21/22/2028 08/07/2025, 04/18/2025, 04/07/2025, Additional history existsRSV Vaccine Ifdexilnu08/09/2024 Procedures Procedure NamePriorityDate/TimeAssociated DiagnosisCommentsKAPPA/SAMANIEGO,FREE,SER Uqskfph4008/07/2025 10:15 AM EDT Iron deficiency anemia, unspecified iron deficiency anemia type Thrombocytopenia Stage 3b chronic kidney disease (HCC) Anemia, unspecified type IMMUNOFIXATION SCREEN, UYETSFfegiqe99/22/2025 10:15 AM EDT Iron deficiency anemia, unspecified iron deficiency anemia type Thrombocytopenia Stage 3b chronic kidney disease (HCC) Anemia, unspecified type IMMUNOGLOBULINS MRVAenobdm25/22/2025 10:15 AM EDT Iron deficiency anemia, unspecified iron deficiency anemia type Thrombocytopenia Stage 3b chronic kidney disease (HCC) Anemia, unspecified type PROTEIN ELECTROPHORESIS SERUM (P)Gnksbqk9308/07/2025 10:15 AM EDT Iron deficiency anemia, unspecified iron deficiency anemia type Thrombocytopenia Stage 3b chronic kidney disease (HCC) Anemia, unspecified type PROTEIN, TOTAL (FOR SEPG)Qabgpon8308/07/2025 10:15 AM EDT Iron deficiency anemia, unspecified iron deficiency anemia type Thrombocytopenia Stage 3b chronic kidney disease (HCC) Anemia, unspecified type MONOCLONAL PROTEIN, SERUM (BLOOD)Iqpurjy7608/07/2025 10:15 AM EDT Iron deficiency anemia, unspecified iron deficiency anemia type Thrombocytopenia Stage 3b chronic kidney disease (HCC) Anemia, unspecified type PROTEIN ELECTROPHORESIS SERUM W/JDYETMBzizqom77/22/2025 10:15 AM EDT Iron deficiency anemia, unspecified iron deficiency anemia type Thrombocytopenia Stage 3b chronic kidney disease (HCC) Anemia, unspecified type FOLATE WYLLPZasvpgh93/22/2025 10:15 AM EDT Iron deficiency anemia, unspecified iron deficiency anemia type Thrombocytopenia Stage 3b chronic kidney disease (HCC) Anemia, unspecified type VITAMIN B12 ECUFVYxolnrr29/22/2025 10:15 AM EDT Iron deficiency anemia, unspecified iron deficiency anemia type Thrombocytopenia Stage 3b chronic kidney disease (HCC) Anemia, unspecified type ERYTHROPOIETIN/LZUIzkmtnw24/22/2025 10:15 AM EDT Iron deficiency anemia, unspecified iron deficiency anemia type Thrombocytopenia Stage 3b chronic kidney disease (HCC) Anemia, unspecified type FERRITIN EPSBymgnkp74/22/2025 10:15 AM EDT Iron deficiency anemia, unspecified iron deficiency anemia type Thrombocytopenia Stage 3b chronic kidney disease (HCC) Anemia, unspecified type CBC + KGSXWaeetzu24/22/2025 10:15 AM EDT Iron deficiency anemia, unspecified iron deficiency anemia type Thrombocytopenia Stage 3b chronic kidney disease (HCC) Anemia, unspecified type IRON + EONFOrejwth04/22/2025 10:15 AM EDT Iron deficiency anemia, unspecified iron deficiency anemia type Thrombocytopenia Stage 3b chronic kidney disease (HCC) Anemia, unspecified type RETIC JIXOFDpkzztx23/22/2025 10:15 AM EDT Iron deficiency anemia, unspecified iron deficiency anemia type Thrombocytopenia Stage 3b chronic kidney disease (HCC) Anemia, unspecified type COMPREHENSIVE METABOLIC XWFLUClrwzym94/22/2025 10:15 AM EDT Iron deficiency anemia, unspecified iron deficiency anemia type Thrombocytopenia Stage 3b chronic kidney disease (HCC) Anemia, unspecified type from Last 3 Months Results * IMMUNOFIXATION SCREEN, SERUM (08/07/2025 10:15 AM EDT)ComponentValueRef Range Test MethodAnalysis TimePerformed AtPathologist SignatureMPA ResultNo M protein is identified.No M protein is identified.08/09/2025 9:33 AM EDT [facility] LABStaff Review (MPA)Reviewed by Nimco Meredith M.D.08/09/2025 9:33 AM EDTCKINDRED HEALTHCARE LABSpecimen (Source) Anatomical Location / LateralityCollection Method / VolumeCollection Time Received TimeBloodBLOOD SPECIMEN / UnknownVenipuncture / Xkrjpdp0908/07/2025 10:15 AM EDT08/07/2025 10:15 AM EDT Narrative Authorizing ProviderResult TypeResult StatusDaksha Balderas PA-CLABORATORYFinal ResultPerforming OrganizationAddressCity/State/ZIP CodePhone Number [facility] [address] [phone], * (ABNORMAL) PROTEIN, TOTAL (FOR SEPG) (08/07/2025 10:15 AM EDT)ComponentValue Ref RangeTest MethodAnalysis TimePerformed AtPathologist SignatureProtein, Total5.7(L)6.3 - 8.0 g/dL08/07/2025 8:[address] [facility] LABSpecimen (Source)Anatomical Location / LateralityCollection Method / Volume Collection TimeReceived TimeBloodBLOOD SPECIMEN / UnknownVenipuncture / Vhtoyxd6708/07/2025 10:15 AM EDT08/07/2025 10:15 AM EDT Narrative Authorizing ProviderResult TypeResult StatusDaksha Martinez Sherrie HUDDLESTON-CLABORATORYFinal ResultPerforming OrganizationAddressCity/State/ZIP CodePhone Number [facility] [address] [place] [address], * (ABNORMAL) PROTEIN ELECTROPHORESIS SERUM (P) (08/07/2025 10:15 AM EDT) ComponentValueRef RangeTest MethodAnalysis TimePerformed AtPathologist SignatureAlbumin for SPE3.483.43 - 5.41 g/dL08/09/2025 9:15 AM EDMER[facility] LABAlpha 1 Globulin0.350.18 - 0.43 g/dL08/09/2025 9:15 AM EDMER[facility] LABAlpha 2 Globulin0.800.42 - 0.98 g/dL 08/09/2025 9:[address] [facility] LABBeta Globulin0.56(L)0.61 - 1.17 g/dL08/09/2025 9:[address] [facility] LABGamma Globulin0.50(L)0.53 - 1.51 g/dL08/09/2025 9:[address] [facility] LABInterpretation (Prot Electro)No definitive M protein is identified on protein electrophoresis.No definitive M protein is identified on protein electrophoresis.08/09/2025 9:[address] [facility] Interpretation Comment for Protein ElectrophoresisHypogammaglobulinemia is present, which can be seen in the setting of monoclonal gammopathy. If clin ically indicated, monoclonal protein analysis and serum free light chain analysis are suggested to evaluate further for monoclonal gammopathy. 08/09/2025 9:[address] [facility] LABM-Protein Location 08/09/2025 9:[address] [facility] LABComment:Not Applicable. M-Protein Concentration0.00<=0.00 g/dL08/09/2025 9:[address] [facility] LABSPE Staff ReviewReviewed by Nimco Meredith M.D.08/09/2025 9:[address] [facility] LABSpecimen (Source)Anatomical Location / LateralityCollection Method / VolumeCollection TimeReceived TimeBloodBLOOD SPECIMEN / UnknownVenipuncture / Tnqbxnn6908/07/2025 10:15 AM EDT08/07/2025 10:15 AM EDT Narrative [facility] - 08/09/2025 9:15 AM EDT Serum electrophoresis test was performed using the Rockmelt V8 NEXUS capillary electrophoresis method. Results obtained with different assay methods or kits cannot be used interchangeably. Authorizing ProviderResult TypeResult StatusMinvera HUDDLESTON-CLABORATORYFinal ResultPerforming OrganizationAddressCity/State/ZIP CodePhone Number [facility] [address] [address], * (ABNORMAL) KAPPA/SAMANIEGO,FREE,SER (08/07/2025 10:15 AM EDT)ComponentValueRef RangeTest MethodAnalysis TimePerformed AtPathologist SignatureKappa Free, Serum28.9(H)3.3 - 19.4 mg/L08/08/2025 2:[address] [facility] LABComment: Rarely, increased serum free light chains levels may not be detected or accurately quantified due to prozone phenomenon or in high viscosity samples using this immunoturbidimetric assay. Correlation with other laboratory results and clinical findings is recommended. The [place] Free Light Chain was performed using the Binding Site Optilite immunoturbidimetric method. Result obtained with different assay methods or kits cannot be used interchangeably. Lambda Free, Serum27.7(H)5.7 - 26.3 mg/L08/08/2025 2:[address] [facility] LABComment: Rarely, increased serum free light [...] K/L Ratio, Serum1.040.26 - 1.65008/08/2025 2:[address] [facility] LABSpecimen (Source)Anatomical Location / LateralityCollection Method / VolumeCollection TimeReceived TimeBloodBLOOD SPECIMEN / UnknownVenipuncture / Yjqeenw3708/07/2025 10:15 AM EDT08/07/2025 10:15 AM EDT Narrative Authorizing ProviderResult TypeResult StatusDaksha HUDDLESTON-CLABORATORYFinal ResultPerforming OrganizationAddressCity/State/ZIP CodePhone Number [facility] [address] * VITAMIN B12 (08/07/2025 10:15 AM EDT)ComponentValueRef RangeTest Method Analysis TimePerformed AtPathologist SignatureVitamin [id number] - 1,245 pg/mL 08/07/2025 9:[address] [facility] LABSpecimen (Source) Anatomical Location / LateralityCollection Method / VolumeCollection Time Received TimeBloodBLOOD SPECIMEN / UnknownVenipuncture / Pojwvka0508/07/2025 10:15 AM EDT08/07/2025 10:15 AM EDT Narrative Authorizing ProviderResult TypeResult StatusDaksha HUDDLESTON-CLABORATORYFinal ResultPerforming OrganizationAddressCity/State/ZIP CodePhone Number [facility] [address] [address], [place] * (ABNORMAL) RETICULOCYTE COUNT (08/07/2025 10:15 AM EDT)ComponentValueRef Range Test MethodAnalysis TimePerformed AtPathologist SignatureRetic %3.1(H)0.4 - 2.0 %08/07/2025 10:24 AM EDTSUMMERSVILLE [facility] LABAbs Retic 0.113(H)0.018 - 0.100 M/uL08/07/2025 10:24 AM EDTSUMMERSVILLE [facility]OR[facility] LABSpecimen (Source)Anatomical Location / LateralityCollection Method / VolumeCollection TimeReceived TimeBloodBLOOD SPECIMEN / UnknownVenipuncture / Vzfanyk9208/07/2025 10:15 AM EDT08/07/2025 10:15 AM EDT Narrative Authorizing ProviderResult TypeResult StatusDaksha Martinez Sherrie PA-CLABORATORYFinal ResultPerforming OrganizationAddressCity/State/ZIP CodePhone Number [facility] [address] [place] [phone] * IRON AND TIBC (08/07/2025 10:15 AM EDT)ComponentValueRef RangeTest Method Analysis TimePerformed AtPathologist VcxkmddbwTwmt7082 - 186 ug/dL08/07/2025 8:14 PM EDTCKINDRED HEALTHCARE EBQVWVD221872 - 386 ug/dL08/07/2025 8:[address] [facility] LABTransferrin Vggczhwpsv09.715.0 - 57.0 %08/07/2025 8:14 PM EDMER[facility] LABSpecimen (Source) Anatomical Location / LateralityCollection Method / VolumeCollection Time Received TimeBloodBLOOD SPECIMEN / UnknownVenipuncture / Uthflqq5608/07/2025 10:15 AM EDT08/07/2025 10:15 AM EDT Narrative Authorizing ProviderResult TypeResult StatusDaksha Balderas PA-CLABORATORYFinal ResultPerforming OrganizationAddressCity/State/ZIP CodePhone Number [facility] [address] [phone], [place] * (ABNORMAL) IMMUNOGLOBULINS,IGG,IGA,IGM (08/07/2025 10:15 AM EDT)ComponentValue Ref RangeTest MethodAnalysis TimePerformed AtPathologist ZfeglgnxnYoN681(L)700 - 1,600 mg/dL08/08/2025 11:[address] [facility] QLRZlH38(L)70 - 400 mg/dL08/08/2025 11:[address] [facility] OSOKeG03(L)40 - 230 mg/dL08/08/2025 11:[address] [facility] LABSpecimen (Source)Anatomical Location / LateralityCollection Method / VolumeCollection TimeReceived TimeBloodBLOOD SPECIMEN / UnknownVenipuncture / Xomkoym8208/07/2025 10:15 AM EDT08/07/2025 10:15 AM EDT Narrative Authorizing ProviderResult TypeResult StatusMinvera Martinez Sherrie PA-CLABORATORYFinal ResultPerforming OrganizationAddressCity/State/ZIP CodePhone Number [facility] [address] [address], * FOLATE, SERUM (08/07/2025 10:15 AM EDT)ComponentValueRef RangeTest Method Analysis TimePerformed AtPathologist SignatureFolate>20.0>4.7 ng/mL08/07/2025 9:[address] [facility] LABComment: A result of > 20 ng/mL is not necessarily indicative of a pathologic or treatable condition: it reflects a limitation of the test methodology. Assay reference range: 4.8 to 24.2 ng/mL. Suitable for detection of folate deficiency. Reference: Folate III (Folate III) [package insert V 1.0 Chinese]. [employer], [place], [place]: September 2015. Specimen (Source)Anatomical Location / LateralityCollection Method / Volume Collection TimeReceived TimeBloodBLOOD SPECIMEN / UnknownVenipuncture / Unknown 08/07/2025 10:15 AM EDT08/07/2025 10:15 AM EDT Narrative Authorizing ProviderResult TypeResult StatusMinvera Martinez Sherrie PA-CLABORATORYFinal ResultPerforming OrganizationAddressCity/State/ZIP CodePhone Number [facility] [address] [place] [address], * (ABNORMAL) FERRITIN (08/07/2025 10:15 AM EDT)ComponentValueRef RangeTest MethodAnalysis TimePerformed AtPathologist UjxbernrsIyvlwqrc669.0(H)14.7 - 205.1 ng/mL08/07/2025 8:23 PM EDTCKINDRED HEALTHCARE LABSpecimen (Source)Anatomical Location / LateralityCollection Method / VolumeCollection TimeReceived TimeBloodBLOOD SPECIMEN / UnknownVenipuncture / Htzjgww6808/07/2025 10:15 AM EDT08/07/2025 10:15 AM EDT Narrative Authorizing ProviderResult TypeResult StatusMinvera Henriquez Sherrie PA-CLABORATORYFinal ResultPerforming OrganizationAddressCity/State/ZIP CodePhone Number [facility] [address] [place] [address], * (ABNORMAL) ERYTHROPOIETIN/EPO (08/07/2025 10:15 AM EDT)ComponentValueRef Range Test MethodAnalysis TimePerformed AtPathologist AknyrgyluMwfvjdantrdeqo37.0(H) 2.6 - 18.5 mIU/mL08/08/2025 10:12 AM EDMER[facility] Specimen (Source)Anatomical Location / LateralityCollection Method / Volume Collection TimeReceived TimeBloodBLOOD SPECIMEN / UnknownVenipuncture / Wvvisic1608/07/2025 10:15 AM EDT08/07/2025 10:15 AM EDT Narrative [facility] - 08/08/2025 10:12 AM EDT Test analyzed by the Aman DxI method. Authorizing ProviderResult TypeResult StatusMinvera Martinez Sherrie PA-CLABORATORYFinal ResultPerforming OrganizationAddressCity/State/ZIP CodePhone Number [facility] [address] [place] [address], * (ABNORMAL) COMPREHENSIVE METABOLIC PANEL (08/07/2025 10:15 AM EDT)Component ValueRef RangeTest MethodAnalysis TimePerformed AtPathologist Signature Protein, Total6.1(L)6.3 - 8.0 g/dL08/07/2025 11:46 AM EDTNORTHCO[facility] LABAlbumin3.93.9 - 4.9 g/dL08/07/2025 11:46 AM [facility] LABCalcium, Total8.78.5 - 10.2 mg/dL08/07/2025 11:46 AM [facility] LABBilirubin, Total0.60.2 - 1.3 mg/dL 08/07/2025 11:46 AM [facility] LABAlkaline Zgcequczmtc829(H)34 - 123 U/L08/07/2025 11:46 AM [facility] YFKQSG0341 - 35 U/L08/07/2025 11:46 AM [facility] OYKFOK934 - 38 U/L08/07/2025 11:46 AM [facility] YIKYlzsghz373(H)74 - 99 mg/dL08/07/2025 11:46 AM [facility] LABComment: The [place] Diabetes Association (ADA) provides guidance for cutoff [...] Standards of Medical Care in Diabetes 2016, [place] [employer] Association. Diabetes Care. 2016.39(Suppl 1). BUN34(H)7 - 21 mg/dL08/07/2025 11:46 AM [facility] Creatinine1.33(H)0.58 - 0.96 mg/dL08/07/2025 11:46 AM [facility] IMTErtveo173132 - 144 mmol/L08/07/2025 11:46 AM [facility] LABPotassium4.43.7 - 5.1 mmol/L08/07/2025 11:46 AM EDT [facility] ITELjmottgt59236 - 107 mmol/L08/07/2025 11:46 AM EDTSUM[facility] IGEYJ92936 - 30 mmol/L08/07/2025 11:46 AM [facility] LABAnion Wag220 - 15 mmol/L08/07/2025 11:46 AM [facility] LABEstimated Glomerular Filtration Rate42(L)>=60 mL/min/1.73m 08/07/2025 11:46 AM [facility] LABComment:Estimated Glomerular Filtration Rate (eGFR) is [...] VolumeCollection TimeReceived TimeBloodBLOOD SPECIMEN / UnknownVenipuncture / Vjsdzpo8908/07/2025 10:15 AM EDT08/07/2025 10:15 AM EDT Narrative Authorizing ProviderResult TypeResult StatusMinvera Balderas PA-CLABORATORYFinal ResultPerforming OrganizationAddressCity/State/ZIP CodePhone Number [facility] [address] [place] [address] * (ABNORMAL) COMPLETE BLOOD COUNT AND DIFFERENTIAL (08/07/2025 10:15 AM EDT) ComponentValueRef RangeTest MethodAnalysis TimePerformed AtPathologist SignatureWBC5.853.70 - 11.00 k/uL08/07/2025 10:24 AM EDTSUMMERSVILLE [facility] LABRBC3.63(L)3.90 - 5.20 m/uL08/07/2025 10:24 AM [facility] ECWWchlqlhqvb47.6(L)11.5 - 15.5 g/dL08/07/2025 10:24 AM EDTNORTHE[facility] FYGYoxcfmcnmu52.1(L)36.0 - 46.0 % 08/07/2025 10:24 AM ED[facility] ZGPVUG20.480.0 - 100.0 fL08/07/2025 10:24 AM EDTNOJE[facility] LISHIR38.2 26.0 - 34.0 pg08/07/2025 10:24 AM EDNOJE[facility] LABMCHC 33.030.5 - 36.0 g/dL08/07/2025 10:24 AM ED[facility] LABRDW-CV15.9(H)11.5 - 15.0 %08/07/2025 10:24 AM [facility] LABPlatelet Zflbl329(L)150 - 400 k/uL08/07/2025 10:24 AM [facility] LABMPV9.29.0 - 12.7 fL08/07/2025 10:24 AM [facility] LABNeutrophils %66.5%08/07/2025 10:24 AM [facility] LABAbs Neut3.891.45 - 7.50 k/uL08/07/2025 10:24 AM EDT [facility] LABLymphocytes %23.8%08/07/2025 10:24 AM EDT [facility] LABAbs Lymph1.391.00 - 4.00 k/uL08/07/2025 10:24 AM ED[facility] LABMonocytes %6.0%08/07/2025 10:24 AM [facility] LABAbs Mono0.35<0.87 k/uL 08/07/2025 10:24 AM ED[facility] LABEosinophils %3.1% 08/07/2025 10:24 AM EDTSUM[facility] LABAbs Eosin0.18<0.46 k/08/07/2025 10:24 AM ED[facility] LABBasophils %0.3 %08/07/2025 10:24 AM EDTSUM[facility] LABAbs Baso<0.03 <0.11 k/08/07/2025 10:24 AM EDTNOJEFFERSON [facility] LABImmature Granulocytes %0.3%08/07/2025 10:24 AM [facility] Abs Immature Gran<0.03<0.10 /08/07/2025 10:24 AM ED[facility] LABNRBC0.0/100 WBC08/07/2025 10:24 AM ED[facility] LABAbsolute nRBC<0.01<0.01 /08/07/2025 10:24 AM [facility] LABDiff UjybVudx84/22/2025 10:24 AM [facility] LABSpecimen (Source)Anatomical Location / Laterality Collection Method / VolumeCollection TimeReceived TimeBloodBLOOD SPECIMEN / UnknownVenipuncture / Czrmzzv0208/07/2025 10:15 AM EDT08/07/2025 10:15 AM EDT Narrative Authorizing ProviderResult TypeResult StatusMinvera HUDDLESTON-CLABORATORYFinal ResultPerforming OrganizationAddressCity/State/ZIP CodePhone Number [facility] [address] [place] [address] from Last 3 Months Insurance Care Teams Team MemberRelationshipSpecialtyStart DateEnd Date Nisa Shepherd BILLING SERVICES MANAGER [address] [place] [address] [place] [address] PCP - GeneralFadely Fdckdwrw52/7/22
--- OUTSIDE RECORDS SUMMARY | 2025-10-09 09:05 | XMS_ITS | Patient Health Record ---
Author Organization [facility] Address [address] [place] [address] Care Team Providers Care Customs Compliance Analyst Name Role Phone JwhomerCandelario Primary Care Provider Unavailabl e Reason For Referral No Information Plan Of Treatment No Information Insurance Providers Payer Name Payer Address Payer Phone Subscriber Number Group Number Insured Name Patient Relationship to Insured Coverage Start Date Coverage End Date [facility] [address] [place] [address] [id number] [id number] CHARLY MEJIA Self - patient is the insured
--- OUTSIDE RECORDS SUMMARY | 2025-10-09 09:05 | XMS_ITS | Clinical Summary ---
Author Organization [facility] Address [address] [place] [address] Care Team Providers Care Greeting Card Writer Name Role Phone Candelario Sosa Primary Care Provider [phone] Trae Mccarty MD Unavailable [phone] Allergies Active AllergyReactionsCriticalityNoted FkehSixofpcvBkbysicvvnapj45/05/2023 Acetaminophen-YwnjihpIxoivOiwh45/16/2022 pt states she is unwilling to try even plain tylenol after this experience even though she states she took tylenol prior to this and had no problems BbvoqibUjmbk46/11/2022 Upset stomach Medications MedicationSigDispense QuantityRefillsLast FilledStart DateEnd [...] mg09/29/2024ctive Active Problems ProblemNoted DateDiagnosed DateTransient ischemic rtcruv6808/16/2024alpitations 08/16/2024Syncope and /14/9739Wkzgtslcbon77/13/2024 Overview (07/20/2024): Patient also experiences chronic right handed paresthesia and pain into first digit of her 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 She also has been told she has history of sciatica on the right leg with significant neuropathy. EMGs were recommended outpatient to further evaluate paresthesia in RUE and lower extremities. Balance zviitzc9903/28/20245077Gftpziekfceryr62/13/2024 Overview (07/20/2024): She also has been told [...] not a tripping adan if applicable. Autonomic hhikkylxltg59/13/2024eripheral xcieztqhxb31/13/2024arpal tunnel syndrome, bilateral upper limbs03/28/2024arpal tunnel syndrome [...] on this for now. Mixed hearing loss, empebtuif01/27/2024Tympanic membrane central perforation, /27/2024cquired hallux valgus of right foot02/02/2024cquired hammer toe deformity of lesser toe of right foot02/02/2024iabetes urutmpyz26/19/2024 Neuropathy of lower iiqorkqtn00/19/2024Type 2 diabetes mellitus without complication, without long-term current use of zgaqgbl1502/02/2024Stage 3b chronic kidney aaphofr9401/29/2024Iron deficiency anemia due to chronic blood loss 10/03/2022GERD (gastroesophageal reflux disease)09/05/2010History of malignant neoplasm of skin09/05/20108436Tcayfrxlqkl09/21/2010symptomatic varicose veins 09/05/2010Depressive /21/2010Essential bdpgqnmvkgru97/21/2010 Family History Medical HistoryRelationNameCommentsDiabetesBrotherHeart diseaseBrother HypertensionBrotherStrokeBrotherCancerFatherHypertensionFatherCancerMother DiabetesMotherHeart diseaseMotherHypertensionMotherStrokeMotherRelationName PtgzqcJqvntdvzKyjsxrjj2VgddffKmbbeuwsAqmlyqGxrqawox Social History Tobacco UseTypesPacks/DayYears UsedDateSmoking Tobacco: NeverSmokeless Tobacco: Never Tobacco Cessation:Counseling Given: Not Answered Alcohol UseStandard Drinks/WeekCommentsDefer0 (1 standard drink = 0.6 oz pure alcohol)caffeine intake: 1-2 cups per dayCommentsUnknownSex and Gender InformationValueDate RecordedSex Assigned at MglqyKlqeqa47/26/2024 11:23 AM EST Legal AnmLaicws10/15/2023 7:09 PM EDTGender QsmetemtQguxmd33/26/2024 11:23 AM ESTSexual OrientationChoose not to idxoicif20/26/2024 11:23 AM EST Last Filed Vital Signs Vital SignReadingTime TakenCommentsBlood Oscxuzxu694/68003/06/2025 9:47 AM EDT Kflnb207008/16/2024 8:51 AM HIJQhaspnapnbg31.5 ??C (97.7 ??F)02/15/2024 10:12 AM EDTRespiratory Rate--Oxygen Hvfrrxbjix73%03/29/2024 2:36 PM EDTInhaled Oxygen Concentration--Cyvmnm79.4 kg (217 lb)03/06/2025 9:47 AM SHIJssjoy426.9 cm (5' 1 )03/06/2025 9:47 AM EDTBody Mass Gsctf485303/06/2025 9:47 AM EDT Plan of Treatment Health MaintenanceDue DateLast DoneCommentsDiabetes: Hemoglobin A1C1948 Diabetes: Retinopathy Mrynhgbjp87/14/1959Diabetes: Urine Protein Screening 1967Pneumococcal Vaccine: 65+ Years (2 of 2 - PCV) COVID-19 Vaccine ( season)/, 02/05/2021, 01/14/2021Influenza Vaccine (#1)510/07/2024, 11/25/2023, 08/27/2022, Additional history isvychDmcguhcxuddBaiysdcffiuf06/28/2022Colorectal Cancer ScreeningDiscontinuedCT ColonographyDiscontinuedFIT-DNADiscontinuedFIT DiscontinuedFOBTDiscontinuedSigmoidoscopyDiscontinued Insurance Care Teams Team MemberRelationshipSpecialtyStart DateEnd Candelario Sosa [address] [place] [address] [facility] - [facility] Trae Mccarty MD [address] [place] [address] PCP - [facility]11/16/23
--- OUTSIDE RECORDS SUMMARY | 2025-10-09 09:06 | XMS_ITS | Patient Health Record ---
Author Organization [facility] [place] Address [address] [place] [address] Care Team Providers Care Gospel Worker Name Role Phone Sheila DOS SANTOSCandelario Primary Care Provider Unavail Regi Shane Unavailable [phone] Allergies Allergen (clinical drug ingredient) Drug/Non Drug [...] Encounters Encounter Location Date Provider Diagnosis [facility] ([facility] [address] [place] [address] [place] [address] 12/29/2024 Regi Jacinto Diabetes E11.9 Assessments Encounter Date Diagnosis (ICD Code) Assessment Notes Treatment Notes Treatment Clinical Notes Section Notes 12/29/2024 Diabetes (ICD-10 - E11.9) Plan Of Treatment No Information Insurance Providers Payer Name Payer Address Payer Phone Subscriber Number Group Number Insured Name Patient Relationship to Insured Coverage Start Date Coverage End Date [facility] [employer] [employer] [facility]IC[facility] [address] [place] [phone] [id number] Nikhil ZhannaivelisseSelf - patient is the [id number] 2024 Medical (General) History Medical History History ICD Code anemia arthritisdiabetesgouthigh blood pressurehigh cholesterolliver diseasekidney diseasevaricose veinsSurgical History Surgery Date(Month/Year) cholecystectomy hysterectomykneeeyecarpal tunnelskin cancer removed
[2025-10-09 09:11] VITALS: BP 137/63; PULSE 75; TEMP 36.1; O2SAT 98
--- OUTSIDE RECORDS SUMMARY | 2025-10-09 09:12 | XMS_ITS | CCD ---
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 Role Phone Vinay Matta Primary Care Provider Bunting, Vinay Attending Provider VINAY MATTA R Primary Care Physician [phone] Bunting, DO Vinay Primary Care Provider Bunting, DO Vinay Attending Provider Bunting, DO Vinay Referring Provider Self, Referral Attending Provider Unavailable Bunting, DO Vinay Primary Care Provider Bunting, DO Vinay Attending Provider TROY Yusuf Emergency Provider TROY Yusuf Attending Provider [phone] Ruth [facility] Primary Care Provider Ruth [employer]ENT, [facility] Primary Care Provider Bunting, DO Vinay Primary Care Provider TROY Yusuf Emergency Provider TROY Yusuf Attending Provider Bunting, DO Vinay Attending Provider STARR Delcid Attending Provider Anh Delcid Unavailable Bunting, DO Vinay Primary Care Provider MD Rafael Edouard Attending Provider Bunting, DO Vinay Primary Care Provider [phone] Edouard, MD Rafael Attending Provider [phone] Bunting, DO Vinay Attending Provider MD Anthony Rose Emergency Provider MD Kimberly Arteaga Admit Provider MD Kimberly Arteaga Attending Provider [phone] DO Krissy Easton Other Provider Conner [facility] Attending Provider [phone] BUNTING, DR MCLEAN Admitting Unavailable BUNTING, DR [...] Unavailable Bunting, DO Mclean Primary Care Provider [phone] Bunting, DO Vinay Attending Provider [phone] Bunting, DO Vinay Primary Care Provider Bunting, DO Vinay Attending Provider STARR Delcid Anh Attending Provider Bunting, DO Vinay Primary Care Provider [phone] Bunting, DO Vinay Attending Provider Ruth [facility] Primary Care Provider Bunting, DO Vinay Primary Care Provider MD Marilyn Stewart Attending Provider Bunting, DO Vinay R Other Provider DO Bakari Barboza M Emergency Provider MD Comfort Monteiro Admit Provider MD Comfort Monteiro Attending Provider KapDO Ottoniel linton M Other Provider Bunting, Vinay R Primary Care Provider Trae Mccarty MD Unavailable Bunting, DO Vinay Primary Care Provider Tamra DO Villegas M Emergency Provider [phone] MD Comfort Monteiro Admit Provider MD Comfort Monteiro Attending Provider [phone] KapDO Ottoniel linton M Other Provider Bunting, DO Vinay Attending Provider Ruth FERMIN, [facility] A. Primary Care Provider Bunting DO, Vinay Primary Care Provider Bunting DO, Vinay Attending Provider Conner CLEMENTS-C, Queta Benavides Attending Provider Bunting DO, Vinay Primary Care Provider Bunting DO, Vinay Attending Provider [phone] Marilyn Stewart MD Referring Provider Bunting DO, [...] Admitting Unavailable Mouchli, Bretamad A. Attending Unavailable MouchKylee lancasterd A. Attending Unavailable Giedraitis , Andrius Vytautas Attending Unavailable Giedraitis , Andrius Vytautmaurilio Attending Unavailable Giedraitis , Andrius Branytpricilla Attending Unavailable Bunting DO, Vinay Primary Care Provider Verónica Ugarte MD Attending Provider Verónica Ugarte MD Referring Provider TAMMY SALDIVAR Attending Unavailable TAMMY SALDIVAR Attending Unavailable WINDNAGELMICHAELQUETA C Attending Unavailable Bradley Rowland MD Attending Provider Bunting DO, Vinay Attending Provider Marilyn Stewart MD Other Provider Marilyn Stewart MD Attending Provider MoVerónica torres Attending Unavailable MoVerónica torres Attending Unavailable Jack Huffman DO Attending Provider Bunting, Vinay Attending Unavailable Bunting, Vinay Admitting [...] FacilityAcetaminophen / Codeine (1 source)Acetaminophen / CodeineDrug Gzsahtn99-89-0733Sqfxc: See Comments [facility] CenterOpio[facility] Agonists (1 source)CodeineDrug Finfeka09-32-0440Mdepn: See CommentsUniversity Hospitals Ely[facility] Center (20 sources)Acetaminophen / Codeine; Translations: [acetaminophen-codeine]Drug Qvbokbx56-40-9764Vicqg stomach (finding), Other: See CommentsOhio [facility] Comment on above:pt states she is unwilling to try even plain tylenol after this experience even though she states she took tylenol prior to this and had no problems (20 sources)Codeine; Translations: [codeine]Drug Kbfnrua73-36-0199Poaoj: See Comments, [facility] (4 sources)Acetaminophen / Codeine; Translations: [Tylenol with Codeine #3]Drug AllergyUnknowGe[facility] (1 source)traMADolDrug AllergyThe [facility] (20 sources)Acetaminophen; Translations: [acetaminophen]Drug Mxvelol22-05-8027 Not allergic to tylenolHol[facility] (14 sources)Acetaminophen / Codeine; Translations: [ACETAMINOPHEN-CODEINE]Drug Eigyann44-83-6612DzbgaAIKJ [facility] Medications Current Medications MedicationDrug Class(es)DatesSig (Normalized)Sig (Original)[id number] 200 actuat albuterol 0.09 mg/actuat metered dose inhaler (20 sources)beta2-Adrenergic AgonistStart: 05-99-3672daddrmwbx HFA (PROVENTIL HFA, VENTOLIN HFA) 90 mcg/actuation inhaler 10/12/2023 ActiveStart: 10-12-2023 take 2 puff(s) by mouth every four hours as needed for coughalbuterol HFA (PROVENTIL HFA, VENTOLIN HFA) 90 mcg/actuation inhaler INHALE 2 PUFFS BY MOUTH EVERY 4 HOURS NEEDED FOR COUGH 10/12/2023 ActiveStart: 82-94-6627ymnt 1 puff(s) by inhalation every four to six hoursAlbuterol Sulfate Active 1 PUFF INHALATION EVERY 4-6 HOURS December 26, 2017 2:57pmStart: 04-23-4994ajep 1 puff(s) by inhalation every four to six hoursAlbuterol Sulfate Active 1 PUFF INHALATION EVERY 4-6 HOURS December 26, 2017 12:00amStart: 12-26-2017 End: 89-50-3546fixv 1 puff(s) by inhalation every four to six hours as needed for wheezingAlbuterol Sulfate 90 mcg/actuation Hfa Aerosol Inhaler Discontinued 1 PUFF INHALATION EVERY 4-6 HOURS as needed for Shortness Of Breath Or Wheezing December 26, 2017 1:00am March 11, 2023 5:40pmStart: 12-26-2017 End: 81-88-8400kqif 1 puff(s) by inhalation every four to six hoursAlbuterol Sulfate Discontinued 1 PUFF INHALATION EVERY 4-6 HOURS December 26, 2017 12:00am March 11, 2023 4:40pmStart: 12-26-2017 End: 05-81-2484fzav 1 puff(s) by inhalation every four to six hoursAlbuterol Sulfate Discontinued 1 PUFF INHALATION EVERY 4-6 HOURS December 26, 2017 1:00am March 11, 2023 5:40pmStart: 16-31-8750hbes 1 puff(s) by inhalation every four to six hoursAlbuterol Sulfate Active 1 PUFF INHALATION EVERY 4-6 HOURS December 26, 2017 12:00amComment on above:INHALE 2 PUFFS BY MOUTH EVERY 4 HOURS NEEDED FOR COUGHallopurinol 300 mg oral tablet (20 sources)Xanthine Oxidase InhibitorStart: 46-59-5094hdaf 1 tablet by mouth once dailyAllopurinol 300 mg tablet Active 300 MG PO Daily May 11, 2024 12:00am Complies with drug therapyStart: 01-21-2022 End: 06-44-1946uuvk 1 tablet by mouth twice dailyAllopurinol 100 mg tablet Discontinued 100 MG PO Twice daily December 29, 2022 1:00am May 11, 2024 11:49am End: 97-45-3430zngj 1 tablet by mouth once dailyallopurinol (ZYLOPRIM) 100 mg tablet Take 100 mg by mouth once daily. 07/15/2024 DiscontinuedComment on above: Take 100 mg by mouth once daily.amoxicillin 875 mg / clavulanate 125 mg oral tablet (6 sources)Penicillin-class AntibacterialStart: 82-48-1293hcomqnofppp- clavulanate potassium (AUGMENTIN) 875-125 mg per tablet 01/02/2025 ActiveStart: 07-17-0874tazk 1 tablet by mouth every twelve hoursAmoxicillin-Pot [...] sources)Platelet Aggregation Inhibitor, Nonsteroidal Anti-inflammatory Drug Start: 12-95-8707pwgj 1 tablet by mouth once dailyAspirin 81 mg Tablet Active 81 MG PO Daily March 11, 2023 12:00am Complies with drug therapyStart: 81-61-8088bqad 1 tablet by mouth once dailyaspirin 81 mg Oral EC Tab 81 mg = 1 tab(s), Oral, Daily, # 30 tab(s), Refills(s) 0, Pharmacy: [id number], 165, cm, 01/19/22 22:12:00 EST, Height/Length Dosing, 90, kg, 01/19/22 22:12:00 EST, Weight Dosing Start Date: 01/21/22 Status: Ordered Quantity: 30.0 Unit: tab(s) Repeat number: 1Comment on above:Take 81 mg by mouth once daily. atenolol 50 mg oral tablet (20 sources)beta-Adrenergic BlockerStart: 08-37-9270lgiu 1 tablet by mouth once dailyAtenolol 50 mg Tablet Active 50 MG PO Daily December 26, 2017 1:00am Complies with drug therapyAtenolol ActiveComment on above:Take 50 mg by mouth once daily.atorvastatin 20 mg oral tablet (20 sources)HMG-CoA Reductase InhibitorStart: 89-16-8099lxav 1 tablet by mouth once dailyAtorvastatin 20 mg Tablet Active 20 MG PO Daily December 26, 2017 1:00am Complies with drug therapyAtorvastatin Calcium ActiveComment on above: Take 20 mg by mouth once daily.baclofen 10 mg oral tablet (11 sources)gamma-Aminobutyric Acid-ergic AgonistStart: 17-50-3946hbhx 5 mg by mouth once daily at bedtimeBaclofen 10 mg tablet Active 5 MG PO Daily at bedtime July 05, 2025 12:00am Complies with drug therapyStart: 73-42-5835lsss 5 mg by mouth once dailybaclofen 10 mg tablet Take 5 mg by mouth once daily. 03/30/2025 ActiveStart: 89-62-8631vwujrfwz 10 mg Tab Refills(s) 0 Start Date: 03/30/25 Status: Ordered Repeat number: 1Biotin (2 sources)Biotin Activecalcium ascorbate 500 mg oral tablet (16 sources)Start: 24-41-7344pcvc 1 tablet by mouth once dailyAscorbate Calcium (Vitamin C) 500 mg tablet Active 500 MG PO Daily May 11, 2024 12:00am Complieswith drug therapycholecalciferol 0.025 mg oral capsule (20 sources)Vitamin DStart: 76-91-1723ymno 1 capsule by mouth once daily Cholecalciferol (Vitamin D3) (Vitamin D3) 25 mcg (1,000 unit) capsule Active 25 MCG PO Daily July 21, 2024 12:00am Complies with drug therapyStart: 05-11-2024 End: 03-43-7185ssau 1 capsule by mouth once dailyCholecalciferol (Vitamin D3) 125 mcg (5,000 unit) capsule Discontinued 125 MCG PO Daily May 11, 2024 12:00am July 21, 2024 12:26pmStart: 51-97-7176kruj 1 tablet by mouth once dailycholecalciferol 1000 intl units oral tablet 25 mcg = 1 tab(s), Oral, Daily, Prophylaxis Start Date:01/20/22 Status: Ordered Repeat number: 1Start: 01-20-2022 take 1 tablet by mouth once dailycholecalciferol 1000 intl units oral tablet 25 mcg = 1 tab(s), Oral, Daily, Prophylaxis Start Date:01/20/22 Status: OrderedStart: 65-04-0150mozk 1 tablet by mouth once dailycholecalciferol 1000 intl units oral tablet 25 mcg = 1 tab(s), Oral, Daily Start Date: 01/20/22 Status: Orderedtake 1 tablet by mouth in the morningcholecalciferol (Vitamin D-3) 25 MCG (1000 UT) tablet Take 1,000 Units by mouth in the morning. ActiveComment on above:Take 1,000 Units by mouth once daily.diphenhydrAMINE hydrochloride 12.5 mg chewable tablet (12 sources)Histamine-1 Receptor AntagonistStart: 24-92-5496jwkjunvqwoQDGLB HCl (CHILDREN'S BENADRYL ALLERGY) 12.5 mg chewable tablet 25 mg. 09/29/2024 Active Fluzone High-Dose Quadrivalent syringe (13 sources)Start: 00-50-9374Kkkdfxh High-Dose Quadrivalent syringe Inject 0.7 mL into the shoulder, thigh, or buttocks 1 (one) time 11/25/2023 Active glimepiride 2 mg oral tablet (20 sources)SulfonylureaStart: 31-88-7495roxl 1 tablet by mouth twice daily Glimepiride 2 mg Tablet Active 2 MG PO Twice daily December 26, 2017 1:00am Complies with drug therapyStart: 47-65-4037gicc 2 mg by mouth once daily in the morningGlimepiride Active 2 MG PO Every morning December 26, 2017 12:00am Glimepiride ActiveComment on above:Take 2 mg by mouth daily with breakfast. hydroCHLOROthiazide 12.5 mg / lisinopril 20 mg oral tablet (20 sources)Thiazide Diuretic, Angiotensin Converting Enzyme InhibitorStart: 27-50-7604xdte 1 tablet by mouth once dailyLisinopril-Hydrochlorothiazide 20- 12.5 mg Tablet Active 1 TAB PO Daily December 26, 2017 1:00am Complies with drug therapytake 10-12.5 mg by mouth oncelisinopril-hydroCHLOROthiazide (PRINZIDE,ZESTORETIC) 10-12.5 mg per tablet Take 1 tablet by mouth once daily. ActiveLisinopril-hydroCHLOROthiazide ActiveComment on above:Take 1 tablet by mouth once daily.loratadine 10 mg oral tablet (5 sources)Start: 79-72-3950xtyg 1 tablet by mouth once dailyLoratadine (Claritin) 10 mg tablet Active 10 MG PO Daily July 24, 2025 12:00am Complies with drug therapyStart: 73-91-6235Lfnujlff Daily, Takes due too itching from Paulino, Refills(s) 0 Start Date: 03/30/25 Status: Ordered Repeat number: 1loratadine (CLARITIN) 5 mg/5 mL syrup Take 5 mg by mouth as needed for cold/allergy symptoms. ActiveMagnesium (4 sources)Start: 35-44-1335Kiewzgmpl Magnesium Start Date: 03/28/24 Status: Ordered Repeat number: 1Start: 74-14-9620Oqezjbyou Magnesium Start Date: 03/28/24 Status: Orderedmagnesium oxide 400 mg oral tablet (20 sources)Start: 36-17-5278cdpf 1 tablet by mouth twice dailyMagnesium Oxide 400 mg magnesium tablet Active 400 MG PO Twice daily May 11, 2024 12:00am Complies with drug therapyStart: 28-96-0277rlar 1 tablet by mouth once daily magnesium oxide 400 mg magnesium tab Take 1 tablet by mouth once daily. 02/03/2023 ActiveStart: 73-00-4824huhl 1 tablet by mouth once dailyMAGNESIUM OXIDE ORAL Take 1 tablet by mouth once daily. 0 02/03/2023 ActiveComment on above:Take 1 tablet by mouth twice daily.Take 1 tablet by mouth once daily. omeprazole 20 mg delayed release oral capsule (20 sources)Proton Pump InhibitorStart: 03-91-6500nysm 1 capsule by mouth once dailyOmeprazole 20 mg capsule,delayed release(DR/EC) Active 20 MG PO Daily May 11, 2024 12:00am Complies with drug therapyStart: 12-26-2017 End: 88-45-1034azud 1 tablet by mouth once dailyOmeprazole Magnesium (Prilosec Otc) 20 mg Tablet,Delayed Release (Dr/Ec) Discontinued 20 MG PO Daily December 26, 2017 1:00am May 11, 2024 11:53amPriLOSEC ActiveComment on above:Take 20 mg by mouth once daily.pioglitazone 15 mg oral tablet (13 sources)Peroxisome Proliferator Receptor alpha Agonist, Peroxisome Proliferator Receptor gamma Agonist, ThiazolidinedioneStart: 31-42-7866blkm 1 tablet by mouth once dailyPioglitazone 15 mg tablet Active 15 MG PO Daily July 05, 2025 12:00am Complies with drug therapyPrenatal (2 sources) ActiveResmetirom (16 sources)Start: 27-70-5420hjnc 1 tablet by mouth once dailyResmetirom (Rezdiffra) 80 mg tablet Active 80 MG PO Daily May 11, 2024 12:00am Complies with drug therapyStart: 64-06-9876qyak 1 tablet by mouth once dailyStart: 85-40-2860pdjr 1 tablet by mouth once dailyResmetirom (Rezdiffra) 80 mg tablet Active 80 MG PO Daily May 10, 2024 11:00pmStart: 34-92-8390xxfj 1 tablet by mouth once dailyResmetirom (Rezdiffra) 80 mg tablet Active 80 MG PO Daily May 11, 2024 12:00amresmetirom (REZDIFFRA) 80 mg tablet (9 sources)Start: 49-02-4477ycmsidakqe (REZDIFFRA) 80 mg tablet once daily. 05/11/2024 Activeresmetirom 80 MG Oral Tablet [Rezdiffra] (3 sources)Start: 25-75-1569Htifycsnw 80 mg oral tablet Refills(s) 0 Start Date: 09/29/24 Status: Ordered Repeat number: 1Start: 25-08-0032Tpugsqmxr 80 mg oral tablet Refills(s) 0 Start Date: 09/29/24 Status: OrderedrOPINIRole 2 mg oral tablet (20 sources)Nonergot Dopamine AgonistStart: 12-29-2022 End: 83-90-7933hdbx 1 tablet by mouth once daily at bedtimeRopinirole 2 mg tablet Active 2 MG PO Daily at bedtime May 11, 2024 12:00am Complies with drug therapyStart: 08-43-8193rohq 2 tablets by mouth at bedtimeropinirole 0.5 [...] oral tablet (20 sources)Dipeptidyl Peptidase 4 InhibitorStart: 65-82-6874pofp 1 tablet by mouth once dailySitagliptin Phosphate (Januvia) 50 mg tablet Active 50 MG PO Daily May 11, 2024 12:00am Complieswith drug therapyComment on above:Take 1 tablet by mouth every afternoon.vit B complex no.12/niacin,B3, (VITAMIN B COMPLEX NO.12-NIACIN ORAL) (1 source)vit B complex no.12/niacin,B3, (VITAMIN B COMPLEX NO.12-NIACIN ORAL) Vitamin B 12 Activevitamin B12 (20 sources)Vitamin C22Utirn: 19-74-4809Cnflegp B12 Refills(s) 0 Start Date: 04/15/23 Status: Ordered Repeat number: 1Start: 03-42-9650Kdbaspz B12 Refills(s) 0 Start Date: 04/15/23 Status: OrderedStart: 82-53-1145idfr 1 tablet by mouth once dailyCyanocobalamin (Vitamin B-12) (Vitamin B-12) 1,000 mcg Tablet Active 1000 MCG PO Daily March 13, 2023 12:00am Complies with drug therapyStart: 03-11-2023 End: 18-83-1637cijr 1 tablet by mouth once dailyCyanocobalamin (Vitamin B-12) (Vitamin B-12) 50 mcg Tablet Discontinued 50 MCG PO Daily February 12:00am March 13, 2023 9:52amVitamin D3 (2 sources)Vitamin D3 Active Completed/Discontinued Medications MedicationDrug Class(es)DatesSig (Normalized)Sig (Original)Albuterol Sulfate 90 mcg/actuation Hfa Aerosol Inhaler (5 sources)Start: 12-26-2017 End: 42-77-1395psjz 1 puff(s) by inhalation every four to six hours as needed for wheezingAlbuterol Sulfate 90 mcg/actuation Hfa Aerosol Inhaler Discontinued 1 PUFF INHALATION EVERY 4-6 HOURS as needed for Shortness Of Breath Or Wheezing December 26, 2017 1:00am March 11, 2023 5:40pmStart: 12-26-2017 End: 92-46-5562lkev 1 puff(s) by inhalation every four to six hours as needed for wheezingAlbuterol Sulfate 90 mcg/actuation Hfa Aerosol Inhaler Discontinued 1 PUFF INHALATION EVERY 4-6 HOURS as needed for Shortness Of Breath Or Wheezing December 26, 2017 12:00am March 11, 2023 4:40pmascorbic acid 500 mg oral tablet (20 sources)Vitamin CStart: 01-20-2022 End: 12-16-8979rwwo 1 tablet by mouth once dailyAscorbic Acid (Vitamin C) (Vitamin C) 500 mg Tablet Discontinued 500 MG PO Daily March 11, 2023 12:00am May 11, 2024 11:48amVitamin C Activebenzonatate 200 mg oral capsule (20 sources)Non-narcotic AntitussiveStart: 12-26-2017 End: 88-83-5376pfjz 1 capsule by mouth twice daily as needed for cough Benzonatate 200 mg Capsule Discontinued 200 MG PO Twice daily as needed for Cough December 26, 2017 1:00am December 29, 2022 2:19pmcalcium carbonate 250 mg / magnesium carbonate 300 mg oral tablet (20 sources)Start: 02-04-2023 End: 59-02-2640Kwutmof Carb-Magnesium Carb 250-300 mg tab Take by mouth. 02/04/2023 07/15/2024 DiscontinuedStart: 26-12-7646WutqgSmls 300 oral tablet 1 tab(s), Oral, Daily, 150 tab(s), Refill(s) 0, [facility], 160, cm, 12/24/22 10:14:00 EST, Height/Length Dosing, 97.2, kg, 12/24/22 10:14:00 EST, Weight Dosing Start Date: 02/04/23 Status: Ordered Quantity: 150.0 Unit: tab(s) Repeat number: 1Comment on above:Take by mouth.cefdinir 300 mg oral capsule (20 sources)Cephalosporin AntibacterialStart: 12-26-2017 End: 27-96-1141cbcc 1 capsule by mouth every twelve hoursCefdinir 300 mg Capsule Discontinued 300 MG PO Q12H December 26, 2017 1:00am December 29, 2022 2 :20pmCefdinir Not-Takingcephalexin 500 mg oral capsule (20 sources)Cephalosporin AntibacterialStart: 03-13-2023 End: 18-88-6800rptn 1 capsule by mouth twice dailyCephalexin 500 mg capsule Discontinued 500 MG PO Twice daily 10 March 13, 2023 12:00am May 11, 2024 11:48amStart: 07-22-2022 End: 69-66-1155nlpl 1 capsule by mouth every eight hoursCephalexin 500 mg capsule Discontinued 500 MG PO Q8H 05 06July 22, 2022 12:00am December 29, 2022 2:20pmcodeine phosphate 2 mg/ml / promethazine hydrochloride 1.25 mg/ml oral solution (20 sources)Opioid Agonist, PhenothiazineStart: 12-26-2017 End: 46-25-1512unjw 1 mL by mouth every four hours as needed for cough Promethazine-Codeine 6.25-10 mg/5 mL Syrup Discontinued 5 ML PO Q4H as needed for Cough 120 December 26, 2017 1:00am December 29, 2022 2:21pmdapagliflozin 10 mg oral tablet (20 sources)Sodium-Glucose Cotransporter 2 InhibitorStart: 07-06-2024 End: 94-72-1636vwfq 1 tablet by mouth once dailyDapagliflozin Propanediol (Farxiga) 10 mg tablet Discontinued 10 MG PO Daily July 21, 2024 12:00am December 27, 2024 3:21pm On Hold: Hold until seen by PCP. discuss alternative therapydiclofenac sodium 75 mg delayed release oral tablet (20 sources)Nonsteroidal Anti-inflammatory DrugStart: 12-29-2022 End: 45-13-6547dhui 1 tablet by mouth twice dailyDiclofenac Sodium 75 mg tablet,delayed release (DR/EC) Discontinued 75 MG PO Twice daily December 29, 2022 1:00am March 13, 2023 9:47amStart: 04-23-2022 End: 60-10-9235kghw 1 tablet by mouth once dailydiclofenac sodium 75 mg Oral EC Tab 75 mg = 1 tab(s), Oral, Daily, Refills(s) 0, Pain Start Date: 04/23/22 Status: OrderedStart: 59-62-2183uylfndpsec sodium 75 mg Oral EC Tab Refills(s) 0 Start Date: 04/23/22 Status: OrderedComment on above:Take 75 mg by mouth once daily. doxycycline monohydrate 100 mg oral capsule (20 sources)Tetracycline-class DrugStart: 12-26-2017 End: 46-79-1960qilp 1 capsule by mouth twice dailyDoxycycline Monohydrate 100 mg Capsule Discontinued 100 MG PO Twice daily December 26, 2017 1:00am December 29, 2022 2:20pmergocalciferol 0.2 mg/ml oral solution (20 sources)Provitamin D2 CompoundStart: 03-11-2023 End: 22-25-7954crll 200 ug by mouth once dailyErgocalciferol (Vitamin D2) 200 mcg/mL (8,000 unit/mL) Drops Discontinued 200 MCG PO Daily March 11, 2023 12:00am May 11, 2024 11:46amferrous sulfate 325 mg oral tablet (3 sources) End: 26-44-7419pttbsff sulfate 325 mg (65 mg iron) tablet Take 325 mg by mouth. 0 07/24/2023 DiscontinuedComment on above:Take 325 mg by mouth.fluticasone propionate 0.05 mg/actuat metered dose nasal spray (20 sources)CorticosteroidStart: 64-43-2684qqri 1 spray(s) nasal route once dailyFluticasone Propionate 50 MCG/ACT 1 spray in each nostril Nasally Once a day for 21 days Feb, Not-TakingStart: 12-26-2017 End: 38-47-2071Srwflirdekk Propionate 50 mcg/actuation [place],Suspension Discontinued 1 SPRAY INTRANASAL Daily December 26, 2017 1:00am December 29, 2022 2:20pmfurosemide 20 mg oral tablet (20 sources)Loop DiureticStart: 09-02-2022 End: 82-06-3504bvgn 1 tablet by mouth once daily in the morningFurosemide 20 mg tablet Discontinued 20 MG PO Every morning December 29, 2022 1:00am December 27, 2024 3:21pm On Hold: Continue to hold, follow-up with PCP to restart Comment on above:Take 20 mg by mouth once daily.gabapentin 300 mg oral capsule (20 sources)Anti-epileptic AgentStart: 03-29-2024 End: 09-14-0399axif 1 capsule by mouth three times dailyGabapentin 300 mg capsule Active 300 MG PO Three times daily December 27, 2024 3:21pm Complies with drug therapyStart: 03-29-2024 End: 62-76-1405ditg 1 capsule by mouth twice daily, then take 2 capsules by mouth at bedtimeGabapentin 300 mg capsule Discontinued 300 MG PO Twice daily May 11, 2024 11:50am December 3:23pm takes 1 in the afternoon and 2 before bedtimeStart: 12-26-2017 End: 96-67-9818cdhb 3 capsules by mouth at bedtimeGabapentin 300 mg Capsule Discontinued 900 MG PO Bedtime December 26, 2017 1:00am May 111:53am Start: 12-26-2017 End: 54-63-1697bwzs 900 mg by mouth at bedtimeGabapentin Discontinued 900 MG PO Bedtime December 26, 2017 12:00am May 11, 2024 10:53amStart: 60-22-7589mufc 300 mg by mouth three times dailyGabapentin Active 300 MG PO Three times daily December 26, 2017 12:00amtake 1 capsule by mouth once daily at bedtime gabapentin (NEURONTIN) 300 mg capsule Take 300 mg by mouth daily at bedtime. ActiveGabapentin ActiveComment on above:Take 300 mg by mouth daily at bedtime. Honey (Medihoney (Honey)) 100 % paste (20 sources)Start: 12-29-2022 End: 08-85-2851Bahtt (Medihoney (Honey)) 100 % paste Discontinued 1 APPLIC TOPICAL Twice daily December 292:00am March 11, 2023 4:44pmStart: 12-29-2022 End: 88-30-2392Whjdv (Medihoney (Honey)) 100 % paste Discontinued 1 APPLIC TOPICAL Twice daily December 29:00am March 11, 2023 5:44pmStart: 22-82-5364Wxqmr (Medihoney (Honey)) 100 % paste Active 1 APPLIC TOPICAL Twice daily December 29, 2022 12:00amMEDIHONEY, HONEY, 100 % pste (19 sources)Start: 12-01-2022 End: 76-99-8858NYONXGGGF, HONEY, 100 % pste APPLY A THIN LAYER TWICE DAILY 12/01/2022 07/15/2024 DiscontinuedStart: 95-08-5783LCYZAIRMU, HONEY, 100 % pste APPLY A THIN LAYER TWICE DAILY 0 12/01/2022 ActiveComment on above:APPLY A THIN LAYER TWICE DAILYmetFORMIN hydrochloride 1000 mg oral tablet (20 sources)BiguanideStart: 12-26-2017 End: 29-69-2648dttz 1 tablet by mouth twice dailyMetformin 1,000 mg Tablet Discontinued 1000 MG PO Twice daily December 26, 2017 1:00am July 22, 2024 1:23pm End: 24-80-1475gmvp 1000 mg by mouth once dailymetformin HCl (METFORMIN ORAL) Take 1,000 mg by mouth once daily. 07/15/2024 DiscontinuedmetFORMIN HCl Active Comment on above:Take 1,000 mg by mouth once daily.Omeprazole Magnesium (Prilosec Otc) 20 mg Tablet,Delayed Release (Dr/Ec) (17 sources)Start: 12-26-2017 End: 07-90-4489wawj 1 tablet by mouth once dailyOmeprazole Magnesium (Prilosec Otc) 20 mg Tablet,Delayed Release (Dr/Ec) Discontinued 20 MG PO Daily December 26, 2017 12:00am May 11, 2024 10:53amStart: 12-26-2017 End: 65-64-1010earc 1 tablet by mouth once dailyOmeprazole Magnesium (Prilosec Otc) 20 mg Tablet,Delayed Release (Dr/Ec) Discontinued 20 MG PO Daily December 26, 2017 1:00am May 11, 2024 11:53amStart: 16-13-4854zhie 1 tablet by mouth once dailyOmeprazole Magnesium (Prilosec Otc) 20 mg Tablet,Delayed Release (Dr/Ec) Active 20 MG PO Daily December 26, 2017 1:00amStart: 35-55-2396tipa 1 tablet by mouth once dailyOmeprazole Magnesium (Prilosec Otc) 20 mg Tablet,Delayed Release (Dr/Ec) Active 20 MG PO Daily December 26, 2017 12:00am predniSONE 20 mg oral tablet (2 sources)Start: 10-20-2023 End: 89-84-5219qltb 2 tablets by mouth once daily, then [...] valgus; Translations: [Hallux valgus (acquired), right foot]Onset: 975439-03-9618TqflzphZmoxw and unspecified renal failure (20 sources)Injury of kidney; Translations: [Acute kidney failure, unspecified] Onset: 426697-85-5712RkhqvslmGsqbe bronchitis (20 sources)Acute bronchitis; Translations: [Acute bronchitis, unspecified] 88-97-8631AlxpayepQvodl cerebrovascular disease (2 sources)Lacunar infarction; Translations: [Other cerebral infarction due to occlusion or stenosis of small artery]87-72-4118FdobdcuExml and rectal conditions (14 sources)Rectal -48-7210MrnmtcnhBkfhalf kidney disease (20 sources)Chronic kidney disease stage 3; Translations: [Stage 3 chronic kidney disease]Onset: 215798-19-4496CsicvfgPkqwwsh kidney disease (2 sources)Chronic kidney disease; Translations: [Chronic kidney disease, stage 3 unspecified]Onset: 82-88-0022Hluvtlnypev and hemorrhagic disorders (4 sources)Thrombocytopenic disorder; Translations: [Thrombocytopenia, unspecified]Onset: 851157-69-5065QboponjYckjaepxzs and other anemia (2 sources)Anemia due to chronic blood loss; Translations: [Iron deficiency anemia secondary to blood loss (chronic)]Onset: 77-57-8832ZvbffglZhodqhklmm and other anemia (17 sources)Anemia due to blood duxn04-30-7737ApoxxetFdillzhyua and other anemia (20 sources)Iron deficiency anemia due to blood loss; Translations: [Iron deficiency anemia secondary to blood loss (chronic)]Onset: 58-97-4631Oisfmor Deficiency and other anemia (4 sources)Iron deficiency anemia secondary to blood loss (chronic); Translations: [IRON DEFIC ANEMIA SEC BLD LOSS CHRN]Onset: 06-89-6326Avtanyp Deficiency and other anemia (1 source)Anemia; Translations: [Anemia in stage 3a chronic kidney disease (HCC)]72-70-6524ChcdszcElijjmsewj and other anemia (2 sources)Anemia in chronic kidney disease; Translations: [Anemia in chronic kidney disease]Onset: 82-93-9810DdctmdgNbvsahcztw and other anemia (20 sources)Anemia; Translations: [Anemia, unspecified]Onset: 01-20-2022 87-05-0262OjphlxknCobtvgdwbo and other anemia (6 sources)Iron deficiency anemia secondary to inadequate dietary iron intake; Translations: [Other iron deficiency anemias]EpisodicDeficiency and other anemia (6 sources)Iron deficiency anemia; Translations: [Iron deficiency anemia, unspecified]40-20-9161RuazavvwMsykikqxkg and other anemia (1 source)Deficiency and other anemia; Translations: [Anemia in stage 3a chronic kidney disease (HCC)]Onset: 51-45-5990Xvbhrcvc mellitus with complications (20 sources)Type 2 diabetes mellitus with diabetic chronic kidney disease; Translations: [Type 2 diabetes mellitus]Onset: 26-61-1432JjirjgwDeculsvl mellitus without complication (20 sources)Type 2 diabetes mellitus without complication; Translations: [Type 2 diabetes mellitus without complications]Onset: 70-11-6279ThcbfbkRkfngjdcg of lipid metabolism (20 sources)Hyperlipidemia; Translations: [Hyperlipidemia, unspecified]Onset: 008432-15-6761EfuntndHvmwcbkzizidje and diverticulitis (14 sources)Diverticular paxzzak74-83-5950EsvhxgkZknmpdumlm disorders (20 sources)Gastroesophageal reflux disease without esophagitis; Translations: [Gastro-esophageal reflux disease without esophagitis]Onset: 96-09-1783Vegjsbb Essential hypertension (20 sources)Essential hypertension; Translations: [Essential (primary) hypertension]Onset: 591759-00-0076NyqbfyvEfthipibbuv (14 sources)Oluryonenbd44-11-9239UcrlfncuMvtiwjynl (1 source)Nonalcoholic steatohepatitis; Translations: [Nonalcoholic steatohepatitis (ALFONSO)]Onset: 04-48-5223FzqhhzuChlaiixgifuh with complications and secondary hypertension (20 sources)Hypertensive urgency ; Translations: [Hypertensive urgency]Onset: 714661-43-8835ScekgboEhet disorders (13 sources)Depressive disorder; Translations: [Depressive disorder]Onset: 580903-53-8040BitdagaBrqhwr and vomiting (14 sources)Nausea; Translations: [Nausea]Onset: 00-27-4355PykwoewoSzmuybjjbgi deficiencies (14 sources)Vitamin B deficiency; Translations: [Deficiency of other specified B group vitamins]Onset: 75-95-8394IecaczagQsjnv and unspecified benign neoplasm (14 sources)Gastric -60-2420UoixkktjCqfth and unspecified benign neoplasm (13 sources)History of polyp of ekcdf68-53-5754LvksdbysLfkvn diseases of kidney and ureters (19 sources)Secondary hyperparathyroidism; Translations: [Secondary hyperparathyroidism of renal origin]02-61-0086XffocbfDyxtk diseases of kidney and ureters (14 sources)Secondary hyperparathyroidism of renal origin; Translations: [Secondary hyperparathyroidism (of renal origin)]Onset: 061335-13-9761 ChronicOther ear and sense organ disorders (17 sources)Mixed conductive and sensorineural hearing loss, bilateral; Translations: [Mixed conductive and sensorineural hearing loss, bilateral]Onset: 239650-41-0283DfdnwjtWobfd gastrointestinal disorders (2 sources)H/O: gastrointestinal disease; Translations: [Personal history of other diseases of the digestive system]Onset: 48-32-0141TwiwrdonCvtsf hereditary and degenerative nervous system conditions (20 sources)Restless legs; Translations: [Restless legs syndrome]Onset: 684803-21-4433ApsprbzCseui hereditary and degenerative nervous system conditions (7 sources)Restless legs syndrome; Translations: [Restless legs syndrome (RLS)] ChronicOther inflammatory condition of skin (1 source)Pruritus of skin; Translations: [Pruritus, unspecified]Onset: 83-45-3078KrqodnbuCpqog inflammatory condition of skin (5 sources)Txtyifw39-26-6184FtjkwoixWubug liver diseases (13 sources)Steatosis of liver; Translations: [Fatty (change of) liver, not elsewhere classified]Onset: 47-91-2669JyhzbedPgzlc liver diseases (10 sources)Hepatic fibrosis; Translations: [Hepatic fibrosis, unspecified] Onset: 85-01-9763MvrbmivWnhdi liver diseases (1 source)Fatty (change of) liver, not elsewhere classified; Translations: [Fatty (change of) liver, not elsewhere classified]Onset: 93-04-7981ZufewyiJorhb liver diseases (1 source)Enzyme level - finding; Translations: [Abnormal levels of other serum enzymes]Onset: 06-34-5403QgerqpgcMnwhk liver diseases (13 sources)Alkaline phosphatase asrcsm72-07-8641GcgmkhcfUgaij nervous system disorders (20 sources)Polyneuropathy; Translations: [Polyneuropathy, unspecified]Onset: 461308-33-5356ErzoqgsXvouw nervous system disorders (13 sources)Neuropathy of lower limb; Translations: [Unspecified mononeuropathy of unspecified lower limb]Onset: 382765-85-4651QumazjrNilyd nervous system disorders (13 sources)Disorder of autonomic nervous system; Translations: [Disorder of the autonomic nervous system, unspecified]Onset: 292352-14-9973LpqqmecJofsw nervous system disorders (13 sources)Peripheral nerve disease ; Translations: [Polyneuropathy, unspecified]Onset: 264638-98-5034WwelshzTwyoi nervous system disorders (17 sources)Bilateral carpal tunnel syndrome; Translations: [Carpal tunnel syndrome, bilateral upper limbs]Onset: 072677-46-3512WpgxvtoKqrjd nervous system disorders (15 sources)Carpal tunnel syndrome of right wrist; Translations: [Carpal tunnel syndrome, right upper limb]Onset: 905644-18-0501AawktrgAvlri nervous system disorders (20 sources)Slurred speech; Translations: [Slurred speech]61-65-6523Hksjfdyb Other nervous system disorders (20 sources)Paresthesia of hand ; Translations: [Paresthesia of skin]03-11-2023 EpisodicOther nervous system disorders (2 sources)Paresthesia of skin; Translations: [Disturbance of skin sensation] 06-73-5130WidzmpxeXgchb nervous system disorders (5 sources)Slurred speech; Translations: [Other speech disturbance]03-13-2023 EpisodicOther non-traumatic joint disorders (13 sources)Arthropathy; Translations: [Arthropathy, unspecified]Onset: 416489-40-5075HhseakvMzyyz non-traumatic joint disorders (1 source)Pain in right shoulder; Translations: [Pain in right shoulder]Onset: 70-75-7663IounajlqWptgq nutritional; endocrine; and metabolic disorders (4 sources)Obese class II; Translations: [Body mass index (BMI) 36.0-36.9, adult]ChronicOther nutritional; endocrine; and metabolic disorders (2 sources)Body mass index 40+ - severely obese; Translations: [Body mass index (BMI) 45.0-49.9, adult]ChronicOther nutritional; endocrine; and metabolic disorders (2 sources)Body mass index (BMI) 36.0-36.9, adultChronicOther nutritional; endocrine; and metabolic disorders (20 sources)Hypomagnesemia; Translations: [Hypomagnesemia]19-87-4253LltsphgFonng nutritional; endocrine; and metabolic disorders (10 sources)Metabolic syndrome X; Translations: [Metabolic syndrome]Onset: 17-13-2510OonlsoxEdiij nutritional; endocrine; and metabolic disorders (2 sources)Obesity; Translations: [Other obesity due to excess calories]Onset: 57-64-3874QjcwmnbFquqi nutritional; endocrine; and metabolic disorders (6 sources)Obesity caused by energy evmcucucc00-20-1569RsdsgweOixih nutritional; endocrine; and metabolic disorders (9 sources)Hypomagnesemia; Translations: [Disorders of magnesium metabolism] Onset: 657509-99-6559QtqkzreBbqfb nutritional; endocrine; and metabolic disorders (4 sources)Abnormal weight loss; Translations: [Abnormal weight loss]Onset: 11-05-6690FdyeonquYoici nutritional; endocrine; and metabolic disorders (6 sources)Weight zcbl35-97-6554RnljswpyQjjnc upper respiratory disease (2 sources)Nasal congestionEpisodicPulmonary heart disease (1 source)Pulmonary hypertension, unspecified; Translations: [PULMONARY HYPERTENSION UNSPECIFIED]Onset: 03-06-9293GnckzyhCwpdtzay codes; unclassified (12 sources)Obstructive sleep apnea syndrome; Translations: [Obstructive sleep apnea (adult) (pediatric)]05-88-4692QzzihnoJevqdvdf codes; unclassified (7 sources)Obstructive sleep apnea (adult) (pediatric); Translations: [Obstructive sleep apnea (adult)(pediatric)]ChronicResidual codes; unclassified (10 sources)Insomnia; Translations: [Insomnia, unspecified]05-55-5728Wvzbvlpa Residual codes; unclassified (5 sources)Insomnia, unspecified; Translations: [Insomnia, unspecified] 04-31-9308LlrrtoaxAgxruihomtx; intervertebral disc disorders; other back problems (6 sources)Other spondylosis with radiculopathy, lumbar region; Translations: [Degeneration of lumbar intervertebral disc]Onset: 26-36-1815ZytppkdVylvjgz (20 sources)Syncope; Translations: [Syncope and collapse]Onset: 05-14-2023 48-77-5514QyjdfoanOhttmwydf cerebral ischemia (18 sources)Transient cerebral ischemia; Translations: [Transient cerebral ischemic attack, unspecified]Onset: 708316-30-7317CesnrjgMikalghinnri (1 source)CHRN KIDNEY DISEASE STG 3 UNSP; Translations: [CHRN KIDNEY DISEASE STG 3 UNSP]Onset: 23-85-2050Jbkemolcexop (1 source)Other intervertebral disc degeneration, lumbar region without mention of lumbar back pain or lower extremity pain; Translations: [Other intervertebral disc degeneration, lumbar region without mentionof lumbar back pain or lower extremity pain]Onset: 66-70-8590Luptwuo tract infections (20 sources)Acute urinary tract infection; Translations: [Urinary tract infection, site not specified]17-67-9738NnhmjzdrYdaxe infection (20 sources)Acute viral disease; Translations: [Viral infection, unspecified] 35-08-0620Piwxhzhj Past or Other Problems Problem ClassificationProblemDateDocumented DateEpisodic/ChronicCardiac dysrhythmias (20 sources)Palpitations; Translations: [Palpitations]Onset: 08-16-2024 34-00-3672RxluyptaBaghqgzvxo and other anemia (1 source)Anemia, unspecified; Translations: [Anemia, unspecified type]Onset: 24-08-4248QtlnjnwsQvwkrxeqvu and other anemia (1 source)Iron deficiency anemia, unspecified; Translations: [Iron deficiency anemia, unspecified iron deficiency anemia type]Onset: 82-20-5183Jdsqwljc Diabetes mellitus without complication (1 source)Impaired fasting glucose; Translations: [IMPAIRED FASTING GLUCOSE] Onset: 17-69-4917EitdypipTwczu aftercare (1 source)Other long term care phlebotomist (current) drug therapy; Translations: [OTH [facility] CURRENT DRUG THERAPY]Onset: 88-99-7754LzyzhjlwHzypw lower respiratory disease (4 sources)Shortness of breath; Translations: [SHORTNESS OF BREATH]Onset: 63-69-7426DidgjlloIgtur nervous system disorders (13 sources)Paresthesia; Translations: [Paresthesia of skin]Onset: 03-28-2024 93-23-4052KlvxdrckQyqjd nervous system disorders (13 sources)Impairment of balance; Translations: [Other abnormalities of gait and mobility]Onset: 316258-97-5625VgvzmcraPkwhp non-epithelial cancer of skin (13 sources)History of malignant neoplasm of skin; Translations: [Personal history of other malignant neoplasm of skin]Onset: 088591-40-0558Nshxsltt Other screening for suspected conditions (not mental disorders or infectious disease) (6 sources)Abnormal level of blood mineral; Translations: [Abnormal level of blood mineral]Onset: 08-58-8105CnvvcyplCtpvmb media and related conditions (13 sources)Bilateral tympanic membrane central perforation; Translations: [Central perforation of tympanic membrane, bilateral]Onset: EpisodicSpondylosis; intervertebral disc disorders; other back problems (1 source)Spinal stenosis, lumbar region with neurogenic claudication; Translations: [Spinal stenosis, lumbarregion with neurogenic claudication]Onset: 95-94-5826VrwvvhzrMvnynujs veins of lower extremity (13 sources)Venous varices; Translations: [Asymptomatic varicose veins of unspecified lower extremity]Onset: 202179-28-1668Fyoxvaww Results Test NameValueInterpretationReference RangeFacilityCBC W Auto Differential panel (Bld)on 61-67-8373Eimbzapqy (Bld) [#/Vol]10*3/uLNormal<0.11CParkview Health on above:Order Comment: Specimen Type: BLOOD SPECIMENOrdering Facility: [facility] Address:[address] [place], [place] [address]Performed By: #### 52612-7, 24424-7 ####[facility] LABCLIA [id number] [place], [place] [address]Gztrqjbnn/100 WBC (Bld)0.3 %NormalCleveland Clinic Marymount Hospital on above:Order Comment: Specimen Type: BLOOD SPECIMENOrdering Facility: [facility] Address:[address] [place], [place] [address]Performed By: #### 21934-6, 16385-1 ####[facility] LABCLIA [id number] [place], [place] [address]Hauhhxrfffvn cell count method Nom (Bld)AutoNormal [facility] on above:Order Comment: Specimen Type: BLOOD SPECIMENOrdering Facility: [facility] Address:[address] [place], [place] [address]Performed By: #### 49501-1, 95642-6 ####[facility] LABCLIA [id number] [place] [address] Eosinophils (Bld) [#/Vol]0.18 10*3/uLNormal<0.46[facility] Comment on above:Order Comment: Specimen Type: BLOOD SPECIMENOrdering Facility: [facility] Address:[address] [place] [address] Performed By: #### 78360-3, 95491-2 ####[facility] LABIA [id number] [place], [place] [address]Dknnjtpstry/100 WBC (Bld)3.1 %NormalCleveland Clinic Marymount Hospital on above:Order Comment: Specimen Type: BLOOD SPECIMENOrdering Facility: [facility] Address:[address] [place], [place] [address]Performed By: #### 10461-3, 56527-4 ####[facility] LABCLIA [id number] [place], [place] [address]Obnakasjzko distribution width (RBC) [Ratio]15.9 %High 11.5-15.0[facility] on above:Order Comment: Specimen Type: BLOOD SPECIMENOrdering Facility: [facility] Address:[address] [place], [place] [address]Performed By: #### 10230-5, 06067-8 ####[facility] LABIA [id number] [place], [place] [address]Xmdfgrphqn (Bld) [Volume fraction]32.1 %Low36.0-46.0 [facility] on above:Order Comment: Specimen Type: BLOOD SPECIMENOrdering Facility: [facility] Address:[address] [place], [place] [address]Performed By: #### 64826-2, 25847-4 ####[facility] LABCLIA [id number] [place] [address] Hemoglobin (Bld) [Mass/Vol]10.6 g/dLLow11.5-15.5CCincinnati [facility]rin[facility] Comment on above:Order Comment: Specimen Type: BLOOD SPECIMENOrdering Facility: [facility] Address:[address] [place] [address] Performed By: #### 27232-8, 27756-5 ####[facility] LABCLIA [id number] [place], [place] [address]Tajsnsmq granulocytes (Bld) [#/Vol]10*3/uLNormal<0.10[facility] HospitalComment on above:Order Comment: Specimen Type: BLOOD SPECIMENOrdering Facility: [facility] Address:[address] [place], [place] [address]Performed By: #### 11999- 8, 26251-0 ####[facility] LABCLIA [id number] [place], [place] [address]Eesyvruy granulocytes/100 WBC (Bld)0.3 %Normal [facility] HospitalComment on above:Order Comment: Specimen Type: BLOOD SPECIMENOrdering Facility: [facility] Address:[address] [place], [place] [address]Performed By: #### 63857-0, 74913-8 ####[facility] LABCLIA [id number] [place] [address] Lymphocytes (Bld) [#/Vol]1.39 10*3/uLNormal1.00-4.00[facility] Comment on above:Order Comment: Specimen Type: BLOOD SPECIMENOrdering Facility: [facility] Address:[address] [place] [address] Performed By: #### 66532-8, 77167-5 ####[facility] LABCLIA [id number] [place], [place] [address]Ahzunmzvcna/100 WBC (Bld)23.8 %NormalCleveland Clinic Marymount Hospital on above:Order Comment: Specimen Type: BLOOD SPECIMENOrdering Facility: [facility] Address:[address] [place], [place] [address]Performed By: #### 35081-5, 32918-9 ####[facility] LABCLIA [id number] [place], [place] [address]AFC (RBC) [Entitic mass]29.2 kxLsjdoh00.0-34.0[facility] on above:Order Comment: Specimen Type: BLOOD SPECIMENOrdering Facility: [facility] Address:[address] [place], [place] [address]Performed By: #### 06233-1, 52517-6 ####[facility] LABCLIA [id number] [place], [place] [address]LAOP (RBC) [Mass/Vol]33.0 g/cDFixoft83.5-36.0[facility] on above:Order Comment: Specimen Type: BLOOD SPECIMENOrdering Facility: [facility] Address:[address] [place], [place] [address]Performed By: #### 31216-3, 40787-5 ####[facility] LABCLIA [id number] [place], [place] [address]UCX (RBC) [Entitic vol]88.4 fLNormal 80.0-100.0[facility] on above:Order Comment: Specimen Type: BLOOD SPECIMENOrdering Facility: [facility] Address:[address] [place], [place] [address]Performed By: #### 32964-6, 56980-2 ####[facility] LABCLIA [id number] [place], [place] [address]Nwzupxzpa (Bld) [#/Vol]0.35 10*3/uLNormal<0.87[facility] on above:Order Comment: Specimen Type: BLOOD SPECIMENOrdering Facility: [facility] Address:[address] [place], [place] [address]Performed By: #### 68178-2, 71298-9 ####[facility] LABCLIA [id number] [place] [address] Monocytes/100 WBC (Bld)6.0 %NormalCleveland Clinic Marymount Hospital on above: Order Comment: Specimen Type: BLOOD SPECIMENOrdering Facility: [facility] Address:[address] [place], [place] [address]Performed By: #### 70607- 8, 09423-9 ####[facility] LABCLIA [id number] [place], [place] [address]Paymqqqbmwd (Bld) [#/Vol]3.89 10*3/uLNormal 1.45-7.50[facility] on above:Order Comment: Specimen Type: BLOOD SPECIMENOrdering Facility: [facility] Address:[address] [place], [place] [address]Performed By: #### 52822-0, 80342-3 ####[facility] LABCLIA [id number] [place], [place] [address]Bwmjdpoyseb/100 WBC (Bld)66.5 %NormalCleveland Clinic Marymount Hospital on above:Order Comment: Specimen Type: BLOOD SPECIMENOrdering Facility: [facility] Address:[address] [place], [place] [address]Performed By: #### 31629-7, 81806-6 ####[facility] LABIA [id number] [place], [place] [address]Lrblydtyl RBC (Bld) [#/Vol]10*3/uLNormal<0.01[facility] on above:Order Comment: Specimen Type: BLOOD SPECIMENOrdering Facility: [facility] Address:[address] [place], [place] [address]Performed By: #### 17263- 8, 95192-6 ####[facility] LABCLIA [id number] [place], [place] [address]Uebunkbxl RBC/100 WBC (Bld) [Ratio]0.0 /100 WBC NormalCleveland Clinic Marymount Hospital on above:Order Comment: Specimen Type: BLOOD SPECIMENOrdering Facility: [facility] Address:[address] [place], [place] [address]Performed By: #### 61828-9, 14898-0 ####[facility] LABCLIA [id number] [place], [place] [address]Jxohywqh mean volume (Bld) [Entitic vol]9.2 fLNormal9.0-12.7CParkview Health on above:Order Comment: Specimen Type: BLOOD SPECIMENOrdering Facility: [facility] Address:[address] [place], [place] [address]Performed By: #### 09936-5, 40747-3 ####[facility] LABCLIA [id number] [place] [address] Platelets (Bld) [#/Vol]126 10*3/sBAdh951-909TohcspkyzCleveland Clinic Marymount Hospital on above:Order Comment: Specimen Type: BLOOD SPECIMENOrdering Facility: [facility] Address:[address] [place], [place] [address]Performed By: #### 93397-2, 35702-6 ####[facility] LABCLIA [id number] [place], [place] [address]ZTZ (Bld) [#/Vol]3.63 10*6/uLLow3.90-5.20 [facility] on above:Order Comment: Specimen Type: BLOOD SPECIMENOrdering Facility: [facility] Address:[address] [place], [place] [address]Performed By: #### 32100-9, 78975-6 ####[facility] LABCLIA [id number] [place], [place] [address]KAJ (Bld) [#/Vol]5.85 10*3/uLNormal3.70-11.00[facility] on above:Order Comment: Specimen Type: BLOOD SPECIMENOrdering Facility: [facility] Address:[address] [place], [place] [address], [place] [address]Uwxaslxst By: #### 55773-3, 61952-6 ####[facility] LABCLIA [id number] [place], [place] [address]BRKZXEwy 90-13-1763KQNKPPFommz (SP) Office ([place]) ANH TEJEDA ([id number]) 1950 F Date Time Provider Department 08/07/25 10:30 AM DAKSHA BRIDGES During your visit today, we recorded the following information about you: Temperature Pulse Respiration Blood pressure 97.7 degrees 79/minute 16/minute 121/59 Weight 100.9 kg Daksha Bridges PA-C 08/07/2025 10:50 AM Signed Hematology Progress Note PATIENT NAME: Anh Tejeda CLINIC NO.: [id number] ATTENDING PHYSICIAN: Henry Walker MD DATE OF [...] 6.4 04/18/2025 6.2 Albumin (more content not included)...NormalProtestant Hospital Comprehensive metabolic 2000 panelon 30-29-3549Pejjvmj [Mass/Vol]3.9 g/dLNormal 3.9-4.9CCincinnati Shriners HospitalComveterans [facility] on above:Order Comment: Specimen Type: BLOOD SPECIMEN [facility] Address: [address] [place], [place] [address]Performed By: #### 73970-9 #### [facility] CLIA [id number] [place], [place] [address]PPH [Catalytic activity/Vol]155 U/EWvwx10-026CtddyjpgdCleveland Clinic [facility] on above:Order Comment: Specimen Type: BLOOD SPECIMEN [facility] Address: [address] [place], [place] [address]Performed By: #### 04763-2 #### [facility] CLIA [id number] [address] [place], [place] [address]MSK [Catalytic activity/Vol]12 U/LNormal7-38[facility] on above:Order Comment: Specimen Type: BLOOD SPECIMEN [facility] Address: [address] [place], [place] [address]Performed By: #### 56006-0 #### [facility] CLIA [id number] [address] [place], [place] [address]Penen gap [Moles/Vol]11 mmol/LNormal8-15[facility] [facility] on above:Order Comment: Specimen Type: BLOOD SPECIMEN Ordering Facility: [facility] Address: [address] [place], [place] [address]Performed By: #### 77125-7 #### [facility] CLIA [id number] [address] [place], [place] [address]RHJ [Catalytic activity/Vol]13 U/XQotmdo19-17LgnkfszjnC[facility] Clinic [facility] on above:Order Comment: Specimen Type: BLOOD SPECIMEN Ordering Facility: [facility] Address: [address] [place], [place] [address]Performed By: #### 08816-6 #### [facility] CLIA [id number] [address] [place], [place] [address]Poeabislk [Mass/Vol]0.6 mg/dLNormal0.2-1.3CParkview Health on above:Order Comment: Specimen Type: BLOOD SPECIMEN Ordering Facility: [facility] Address: [address] [place], [place] [address]Performed By: #### 06571-8 #### [facility] CLIA [id number] [address] [place] [address]Mtgnmpx [Mass/Vol]8.7 mg/dLNormal8.5-10.2CParkview Health on above:Order Comment: Specimen Type: BLOOD SPECIMEN Ordering Facility: [facility] Address: [address] [place], [place] [address]Performed By: #### 78978-0 #### [facility] CLIA [id number] [address] [place] [address]68[address]Qhjxzqig [Moles/Vol]102 mmol/CCbkwwk50-033QpsbnghxwCleveland Clinic [facility] on above:Order Comment: Specimen Type: BLOOD SPECIMEN Ordering Facility: [facility] Address: [address] [place], [place] [address]Performed By: #### 69906-2 #### [facility] CLIA [id number] [address] [place] [address]DP2 [Moles/Vol]27 mmol/LRhguiu41-20UohdptelcProtestant Hospital Comment on above:Order Comment: Specimen Type: BLOOD SPECIMEN Ordering Facility: [facility] Address: [address] [place], [place] [address]Performed By: #### 97935-1 #### [facility] CLIA [id number] [address] [place] [address] 566[address]Mmsvsmevgc [Mass/Vol]1.33 mg/dLHigh0.58-0.96[facility] on above:Order Comment: Specimen Type: BLOOD SPECIMEN Ordering Facility: [facility] Address: [facility] [place], [place] [address]Performed By: #### 98806-6 #### [facility] CLIA [id number] [address] [place] [address]vDGLen SerPlBld CKD-EPI 094347 mL/min/1.73m???Low>=60Protestant HospitalComment on above:Order Comment: Specimen Type: BLOOD SPECIMEN Ordering Facility: [facility] Address: [address] [place] [address]Jyuuek Comment: Estimated Glomerular Filtration Rate (eGFR) is [...] not accurately reflect actual GFR.Performed By: #### 90731-8 #### [facility] CLIA [id number] [address] [place] [address]Ojwwmgc [Mass/Vol]208 mg/cXWanv66-32SbobgoxgcProtestant Hospital Comment on above:Order Comment: Specimen Type: BLOOD SPECIMEN Ordering Facility: [facility] Address: [address] [place] [address]Husnhs Comment: The [place] Diabetes Association (ADA) provides guidance for cutoff [...] Standards of Medical Care in Diabetes 2016, [place] Diabetes Association. Diabetes Care. 2016.39(Suppl 1).Performed By: #### 04889-1 #### [facility] CLIA [id number] [address] [place] [address]Tcgqauurf [Moles/Vol]4.4 mmol/LNormal3.7-5.1CParkview Health on above:Order Comment: Specimen Type: BLOOD SPECIMEN Ordering Facility: [facility] Address: [address] [place], [place] [address]Performed By: #### 49620-4 #### [facility] CLIA [id number] [address] [place], [place] [address]Qdkahym [Mass/Vol]6.1 g/dLLow6.3-8.0[facility] Comment on above:Order Comment: Specimen Type: BLOOD SPECIMEN Ordering Facility: [facility] Address: [address] [place], [place] [address]Performed By: #### 47566-3 #### [facility] CLIA [id number] [address] [place] [address] 917[address]Umpgrk [Moles/Vol]140 mmol/VFfautg231-592QqimmbxziProtestant HospitalComment on above:Order Comment: Specimen Type: BLOOD SPECIMEN Ordering Facility: [facility] Address: [address] [place], [place] [address]Performed By: #### 71152-8 #### [facility] CLIA [id number] [address] [place] [address] 57[address]Bpbu nitrogen [Mass/Vol]34 mg/dLHigh7-21Protestant HospitalComment on above:Order Comment: Specimen Type: BLOOD SPECIMEN Ordering Facility: [facility] Address: [address] [place], [place] [address]Performed By: #### 41273-2 #### [facility] CLIA [id number] [address] [place] [address]ONA SerPl-aCncon 17-41-9722Baxbemhkglahrz (EPO) Qn30.0 mIU/mL High2.6-18.5CCincinnati Shriners HospitalComment on above:Order Comment: Specimen Type: BLOOD SPECIMENOrdering Facility: [facility] Address:[address] [place], [place] [address]Performed By: #### 87936-7 ####[facility] [id number] [facility] [id number] NIXON STREETFerritin SerPl-mCncon 27-41-8115Vjhlapgm [Mass/Vol]353.0 ng/fTAgag95.7-205.1CParkview Health on above:Order Comment: Specimen Type: BLOOD SPECIMEN Ordering Facility: [facility] Address: [address] [place], [place] [address]Performed By: #### 97309-8, 6-4 #### [facility] CLIA [id number] [address] [place] [address] STATES OF AMERICAFolate SerPl-mCncon 52-02-2462Lfzzzj [Mass/Vol]ng/mLNormal>4.7CParkview Health on above:Order Comment: Specimen Type: BLOOD SPECIMEN Ordering Facility: [facility] Address: [address] [place], [place] [address]Result Comment: A result of > 20 ng/mL is not necessarily indicative of a pathologic or treatable condition: it reflects a limitation of the test methodology. Assay reference range: 4.8 to 24.2 ng/mL. Suitable for detection of folate deficiency. Reference: Folate III (Folate III) [package insert V 1.0 French]. [facility], [place], [place]: September 2015.Performed By: #### 44273-0, 2275-4 #### [facility] CLIA [id number] [address] [place] [address] STATES OF AMERICAIMMUNOFIXATION SCREEN, SERUM on 57-64-6350EOH RESULTNo M protein is identified.NormalNo M protein is identified.[facility] on above:Order Comment: Specimen Type: BLOOD SPECIMEN Ordering Facility: [facility] Address: [address] [place], [place] [address]Performed By: #### 36890-3, 2275-4 #### [facility] CLIA [id number] [address] [place] [address] STATES OF AMERICASTAFF REVIEW (MPA)Reviewed by Nimco Meredith M.D.[facility] on above:Order Comment: Specimen Type: BLOOD SPECIMEN Ordering Facility: [facility] Address: [address] [place], [place] [address]Performed By: #### 99676-8, 6-4 #### [facility] CLIA [id number] [address] [place] [address] [place] OF AMERICAIMMUNOGLOBULINS,IGG,IGA,IGM on 73-40-4122EiO [Mass/Vol]45 mg/dUZwe03-149TfpfsfdciCleveland Clinic [facility] on above:Order Comment: Specimen Type: BLOOD SPECIMENOrdering Facility: [facility] Address:[address] [place], [place] [address]Performed By: #### SERIMM ####[facility]CLIA [id number] [place] [address] [place] OF AMERICAIgG [Mass/Vol]657 mg/dL Gtk463-3385ZpxsqdhocCleveland Clinic [facility] on above:Order Comment: Specimen Type: BLOOD SPECIMENOrdering Facility: [facility] Address:[address] [place], [place] [address]Performed By: #### SERIMM ####[facility] LABCLIA [id number] [place] [address] [place] OF AMERICAIgM [Mass/Vol]33 mg/mSJyw22-898DyaukunupCleveland Clinic [facility] on above:Order Comment: Specimen Type: BLOOD SPECIMENOrdering Facility: [facility] Address:[address] [place], [place] [address]Performed By: #### SERIMM ####[facility] LABCLIA [id number] [place] [address] [place] RASHMI [employer] and [employer] binding capacity panelon 94-39-7074Yyug [Mass/Vol]67 ug/dLNormal 41-186[facility] on above:Order Comment: Specimen Type: BLOOD SPECIMEN Ordering Facility: [facility] Address: [address] [place], [place] [address]Performed By: #### 97310-9, 2275-4 #### [facility] CLIA [id number] [address] [place] [address] [place] OF AMERICAIron binding capacity [Mass/Vol]295 ug/dVSzpfwh594-873AwsafckglCleveland Clinic [facility] on above:Order Comment: Specimen Type: BLOOD SPECIMEN Ordering Facility: [facility] Address: [address] [place], [place] [address]Performed By: #### 26472-1, 2276-4 #### [facility] CLIA [id number] [address] [place] [address] [place] OF AMERICAIron/TIBC [Molar ratio]22.7 %Ppxtql17.0-57.0[facility] on above:Order Comment: Specimen Type: BLOOD SPECIMEN Ordering Facility: [facility] Address: [address] [place], [place] [address]Performed By: #### 57730-6, 2275-4 #### [facility] CLIA [id number] [address] [place] [address] [place] OF AMERICAKAPPA/SAMANIEGO,FREE,SERon 88-74-4838Kipwnyzrosfikt light chains.kappa.free (S) [Mass/Vol]28.9 mg/LHigh 3.3-19.4CParkview Health on above:Order Comment: Specimen Type: BLOOD SPECIMENOrdering Facility: [facility] Address:[address] [place], [place] [address]Result Comment: Rarely, increased serum free light chains levels may not be detected or accurately quantified due to prozone phenomenon or in high viscosity samples using this immunoturbidimetric assay. Correlation with other laboratory results and clinical findings is recommended. The [place] Free Light Chain was performed using the Binding Site Optilite immunoturbidimetric method. Result obtained with different assay methods or kits cannot be used interchangeably.Performed By: #### KLFRS ####[facility] LABCLIA [id number] [place] [address] [place] OF AMERICAImmunoglobulin light chains.kappa/Immunoglobulin light chains.lambda (S) [Mass ratio]1.96Loyhsh1.26-1.65[facility] Comment on above:Order Comment: Specimen Type: BLOOD SPECIMENOrdering Facility: [facility] Address:[address] [place] [address] Performed By: #### KLFRS ####[facility] LABCLIA [id number] [place] [address] [place] OF AMERICAImmunoglobulin light chains.lambda.free [Mass/Vol]27.7 mg/LHigh5.7-26.3CParkview Health on above:Order Comment: Specimen Type: BLOOD SPECIMENOrdering Facility: [facility] Address:[address] [place], [place] [address]Result Comment: Rarely, increased serum free light chains [...] cannot be used interchangeably.Performed By: #### KLFRS ####[facility]IA [id number] [place] [address] [place] OF AMERICAPROTEIN ELECTROPHORESIS SERUM (P)on 87-35-7397Zoqfnzk [Mass/Vol]3.48 g/dLNormal3.43-5.41Protestant HospitalComment on above: Order Comment: Specimen Type: BLOOD SPECIMENOrdering Facility: [facility] Address:[address] [place], [place] [address]Performed By: #### [id number] ####[facility] LABIA [id number] [place] [address] [place] OF AMERICAAlpha 1 globulin Elph [Mass/Vol]0.35 g/dLNormal0.18-0.43[facility] on above: Order Comment: Specimen Type: BLOOD SPECIMENOrdering Facility: [facility] Address:[address] [place], [place] [address]Performed By: #### [id number] ####[facility]CLIA [id number] [place] [address] [place] OF AMERICAAlpha 2 globulin Elph [Mass/Vol]0.80 g/dLNormal0.42-0.98[facility] on above: Order Comment: Specimen Type: BLOOD SPECIMENOrdering Facility: [facility] Address:[address] [place], [place] [address]Performed By: #### [id number] ####[facility]CLIA [id number] [address] STATES OF AMERICABeta globulin Elph [Mass/Vol]0.56 g/dLLow0.61-1.17[facility] on above:Order Comment: Specimen Type: BLOOD SPECIMENOrdering Facility: [facility] Address:[address] [place], [place] [address]Performed By: #### [id number] ####[facility]IA [id number] [address] STATES [facility]ING HOSPITALGamma globulin Elph [Mass/Vol]0.50 g/dLLow0.53-1.51[facility] on above:Order Comment: Specimen Type: BLOOD SPECIMENOrdering Facility: [facility] Address:[address] [place], [place] [address]Performed By: #### [id number] ####[facility] LABCLIA [id number] [address] STATES OF AMERICAINTERPRETATION COMMENT FOR PROTEIN ELECTROPHORESISHypogammaglobulinemia is present, which can be seen in the setting of monoclonal gammopathy. If clinically indicated, monoclonal protein analysis and serum free light chain analysis are suggested to evaluate further for monoclonal gammopathy.NormalCleveland Clinic [facility] Hospital on above:Order Comment: Specimen Type: BLOOD SPECIMENOrdering Facility: [facility] Address:[address] [place], [place] [address]Performed By: #### [id number] ####[facility]CLIA [id number] [place] [address] [place] OF AMERICAM-PROTEIN LOCATION NormalCleveland Clinic [facility] on above:Order Comment: Specimen Type: BLOOD SPECIMENOrdering Facility: [facility] Address:[address] [place], [place] [address]Result Comment: Not Applicable.Performed By: #### [id number] ####[facility]IA [id number] [place] [address] [place] [facility] HOSPITALProtein Fractions [Interp]No definitive M protein is identified on protein electrophoresis.Normal No definitive M protein is identified on protein electrophoresis.[facility] on above:Order Comment: Specimen Type: BLOOD SPECIMENOrdering Facility: [facility] Address:[address] [place], [place] [address]Performed By: #### [id number] ####[facility]IA [id number] [place] [address] [place] AMERICAProtein.monoclonal Elph [Mass/Vol]0.00 g/dLNormal<=0.00[facility] on above:Order Comment: Specimen Type: BLOOD SPECIMENOrdering Facility: [facility] Address:[address] [place], [place] [address]Performed By: #### [id number] ####[facility]IA [id number] [place] [address] [place] RASHMI SPE STAFF REVIEWReviewed by Nimco Meredith M.D.[facility] Comment on above:Order Comment: Specimen Type: BLOOD SPECIMENOrdering Facility: [facility] Address:[address] [place] [address] Performed By: #### [id number] ####[facility]IA [id number] [place] [address] [place] RASHMI Prot SerPl-mCncon 02-90-6559Pdbkfuv [Mass/Vol]5.7 g/dLLow6.3-8.0[facility] on above:Order Comment: Specimen Type: BLOOD SPECIMEN [facility] Address: [address] [place], [place] [address]Performed By: #### 76977-3, 4 #### [facility] CLIA [id number] [address] [place] [address] [place] OF AMERICARetics #on 08-07-2025 Reticulocytes (Bld) [#/Vol]0.69425 10*3/uLHigh0.018-0.100[facility] on above:Order Comment: Specimen Type: BLOOD SPECIMENOrdering Facility: [facility] Address:[address] [place], [place] [address]Performed By: #### 22026-4, 84804-4 ####[facility] LABCLIA [id number] [place], [place] [address]Gxkhxbdwikamj (Bld) [#/Vol]on 76-01-5140Mtskmdvqpjfwz/100 RBC (Bld)3.1 %High0.4-2.0[facility] on above:Order Comment: Specimen Type: BLOOD SPECIMENOrdering Facility: [facility] Address:[address] [place], [place] [address]Performed By: #### 24010-6, 72817-0 ####[facility] LABCLIA [id number] [place], [place] [address]Cql B12 SerPl-mCncon 92-08-2422Cjepapmms (Vitamin B12) [Mass/Vol]903 pg/aFLakyjv926-4291GymlbjbfsParkview Health on above:Order Comment: Specimen Type: BLOOD SPECIMEN [facility] Address: [address] [place], [place] [address]Performed By: #### 26968-9, 4 #### [facility] CLIA [id number] [address] [place] [address] [place] OF AMERICAX-ray reportOrdered By: Sharad Robles on 60-44-8029Niziu reportSOUTHVIEW MEDICAL CENTER Main [address] [address] XRay Report Signed Patient: Anh Tejeda MR#: [id number] : 1950 Acct:[id number] Age/Sex: 74 / F ADM Date: 5 [...] Robles M.D. 07/19/2025 10:41 PM Dictation Location: [place] [address] Transcribed By: [facility] 07/19/252240 Dictated By: Sharad Robles DO 07/19/252239 Signed By: 07/19/252240 [facility] Hospitaltudy reportSOUTHVIEW MEDICAL CENTER Main [address] [address] XRay Report Signed Patient: Anh Tejeda MR#: [id number] : 1950 Acct:[id number] Age/Sex: 74 / F ADM Date: 5 [...] Robles M.D. 07/19/2025 10:39 PM Dictation Location: [facility] Transcribed By: MT 07/19/252238 Dictated By: Sharad Robles DO 07/19/252238 Signed By: 07/19/252238 [facility] JacksonXR knee standing BIon 05-06-3080PY knee standing [facility] [place] [address] XRay Report Signed Patient: Anh Tejeda MR#: [id number] : 1950 Acct:[id number] Age/Sex: 74 / F ADM Date: 07/19/25 Loc: XD Room: Type: [facility] Attending Dr: Vinay Matta DO Copies to: [...] Robles M.D. 07/19/2025 10:41 PM Dictation Location: [place] Transcribed By: MT 07/19/252240 Dictated By: Sharad Robles DO 07/19/252239 Signed By: 07/19/252240[facility] Physician GroupXR shoulder BI min 2Von 88-51-0941YW shoulder BI min 2VFIRELANDS [facility] [place] [address] XRay Report Signed Patient: Anh Tejeda MR#: [id number] : 1950 Acct:[id number] Age/Sex: 74 / F ADM Date: 07/19/25 Loc: XD Room: Type: [facility] Attending Dr: Vinay Matta DO Copies to: [...] Robles M.D. 07/19/2025 10:39 PM Dictation Location: [facility]--20 Transcribed By: [facility] 07/19/252238 Dictated By: Sharad Robles DO 07/19/252238 Signed By: 07/19/[address] [place] [address] Physician GroupAmbulatory Visit Summaryon 66-51-9219Srfnfpffhh Visit SummaryAmbulatory Visit Summary ANH TEJEDA :1950 [...] EST With: Shanel DONG, Verónica Finch Where: [facility] [address] [place] [address] [place] [address]- You Need to Complete the Following Comprehensive [...] Hyperlipidemia Itching Liver fibrosis (more content not included)...[facility]/Clinic Noteon 09-32-1020Eomrlspyqmtbjlwn Office/Clinic Note Gastroenterology Office/Clinic Note Chief Complaint [...] 84.5 fL (03/27/25) Chloride: 104 mmol/L (03/27/25) [place] Absolute: 0.3 E9/L (03/27/25) CO2: 28 mmol/L (03/27/25) [place] Auto: 6.4 % (03/27/25) Creatinine: 1.2 mg/dL [...] without esophagitis) Ordered: Curr (more content not included)...[facility] HospitalComment on above:Result Comment: Electronically Signed By: Shanel DONG, Verónica Finch\.br\Date and Time Signed: 07/11/2512:47 EDTA1C with Estimated Average Gluon 06-26-2025 Glucose [Mass/Vol]157 mg/dLNoAdventHealth Hendersonville Physician GroupComment on above: Result Comment: PERFORMED BY: [place] [address] PATHOLOGIST CYLINDER HONER KARTHIK CHICAS M.D.Performed By: #### A1C WTH eA, LIPID #### [facility] [address] [place] [address] USAAlanine aminotransferase [Enzymatic activity/volume] in Serum or PlasmaOrdered By: Vinay Bunting on 06-76-9566PEC [Catalytic activity/Vol]11 U/LNormal7-52[facility] – JacksonComment on above: Performed By: #### MG, CMP, CBC, LIPID #### [facility] [address] [place] [address] USAAlbumin [Mass/volume] in Serum or Plasma by Bromocresol green (BCG) dye binding methoOrdered By: Vinay Bunting on 77-95-4288Rlyywjc BCG dye [Mass/Vol]3.8 g/dL3.5-5.7FJ.W. Ruby Memorial HospitalAlkaline phosphatase [Enzymatic activity/volume] in Serum or PlasmaOrdered By: Vinay Bunting on 75-39-7929LXJ [Catalytic activity/Vol]132 U/YQcnf42-542XnxchhsjhHolzer Medical Center – JacksonComment on above:Performed By: #### MG, CMP, CBC, LIPID #### [facility] [address] [place] [address] USAAppearance of UrineOrdered By: Marilyn Stewart on 06-26-2025 Appearance (U)ClearNormalClearHolzer Medical Center – JacksonComment on above: Order Comment: A1C IS NOT DUE UNTIL OCTOBER.Performed By: #### MG, CMP, CBC, LIPID #### [facility] [address] [place] [address] USAAspartate aminotransferase [Enzymatic activity/volume] in Serum or PlasmaOrdered By: Vinay Bunting on 29-75-3444BZD [Catalytic activity/Vol]12 U/KVcv63-85MnwxcrkfnHolzer Medical Center – JacksonComment on above: Performed By: #### MG, CMP, CBC, LIPID #### [facility] [address] [place] [address] USABacteria [Presence] in Urine by AutomatedOrdered By: Marilyn Stewart on 41-52-2670Ddkzszes Auto Ql (U)None seen [HPF]None SeenHolzer Medical Center – JacksonBilirubin Test strip Ql (U)Ordered By: Marilyn Bulldir on 24-63-2226Ezzwcpsdx Ql (U)NegativeNegativeHolzer Medical Center – Jackson Bilirubin.total [Mass/volume] in Serum or PlasmaOrdered By: Vinay Bunting on 85-45-9294Ogyfgrasf [Mass/Vol]0.7 mg/dLNormal0.3-1.0[facility] – JacksonComment on above:Performed By: #### MG, CMP, CBC, LIPID #### [facility] [address] [place] [address] USABlood estimated average glucose determination by estimation from glycated hemoglobinOrdered By: Vinay Bunting on 06-26-2025 Average glucose Estimated from glycated hemoglobin (Bld) [Mass/Vol]157 mg/dL [facility] – JacksonCalcium [Mass/volume] in Serum or PlasmaOrdered By: Vinay Bunting on 64-47-1988Lyvjesw [Mass/Vol]8.9 mg/dLNormal8.6-10.3 [facility] – JacksonComment on above:Performed By: #### MG, CMP, CBC, LIPID #### [facility] [address] [place] [address] USACarbon dioxide, total [Moles/volume] in Serum or Plasma Ordered By: Vinay Bunting on 22-96-6611LX2 [Moles/Vol]32.4 mmol/LHigh21.0-31.0 [facility] – JacksonComment on above:Performed By: #### MG, CMP, CBC, LIPID #### [facility] [address] [place] [id number] USAChloride [Moles/volume] in Serum or PlasmaOrdered By: Vinay Bunting on 48-75-5973Lapqocsq [Moles/Vol]103 mmol/XLeooro10-624WjzlawvduHolzer Medical Center – JacksonComment on above:Performed By: #### MG, CMP, CBC, LIPID #### [facility] [address] [place] [address] USACholesterol [Mass/volume] in Serum or PlasmaOrdered By: Vinay Matta on 83-47-1498Onduqnfvjyc [Mass/Vol]102 mg/sTMpl178-878EqxyexnglHolzer Medical Center – JacksonComment on above:Chol less than 200 mg/dl low riskChol 201-239 mg/dl borderline riskChol 240 mg/dl and greater high riskResult Comment: Chol less than 200 mg/dl low risk Chol 201-239 mg/dl borderline risk Chol 240 mg/dl and greater high riskPerformed By: #### A1C WTH eA, LIPID #### [facility] [address] [place] [address] USACholesterol in HDL [Mass/volume] in Serum or PlasmaOrdered By: Vinay Matta on 54-93-1786Zjuiatotmsg in HDL [Mass/Vol]37 mg/dLNormal 23-92[facility] – JacksonComment on above:HDL CHOL ATP-III CLASSIFICATION Cardiovascular RiskHDL > or equal to 60 mg/dL LOWHDL < 40 mg/dL HIGHResult Comment: HDL CHOL ATP-III CLASSIFICATION Cardiovascular Risk HDL > or equal to 60 mg/dL LOW HDL < 40 mg/dL HIGHPerformed By: #### A1C WTH eA, LIPID #### [facility] [address] [place] [address] USACholesterol in LDL Calc [Mass/Vol]Ordered By: Vinay Matta on [id number] in LDL [Mass/Vol]43 mg/dL0-100[facility] JacksonComment on above:LDL ATP III CLASSIFICATIONLDL less than 100 mg/dL OptimalLDL 100-129 mg/dL Near or above ccbosfaJRQ005-652 mg/dL Borderline highLDL 160-189 mg/dL HighLDL greater than 189 mg/dL Very high Cholesterol in VLDL Calc [Mass/Vol]Ordered By: Vinay Matta on 06-26-2025 Cholesterol in VLDL [Mass/Vol]22 mg/dLHolzer Medical Center – JacksonColor of Urine by AutoOrdered By: Marilyn Stewart on 69-08-7640Emywe (U)Light-yellowNormal [facility] East CampusComment on above:Order Comment: A1C IS NOT DUE UNTIL OCTOBER.Performed By: #### MG, CMP, CBC, LIPID #### [facility] [address] [place] [address] USAComprehensive Metabolic Panelon 34-05-2347Caboocz [Mass/Vol]3.8 g/dLNormal3.5-5.7The [facility] Physician GroupComment on above: Performed By: #### MG, CMP, CBC, LIPID #### [facility] [address] [place] [address] USAGFR/1.73 sq M.predicted MDRD (S/P/Bld) [Vol rate/Area] 41.095 mL/min/{1.73_m2}NormalThe [facility] Physician GroupComment on above: Performed By: #### MG, CMP, CBC, LIPID #### [facility] [address] [place] [address] USACreatinine [Mass/volume] in Serum or PlasmaOrdered By: Vinay Matta on 80-98-1658Aqcapyvrbq [Mass/Vol]1.34 mg/dLHigh0.60-1.20 [facility] – JacksonComment on above:Performed By: #### MG, CMP, CBC, LIPID #### [place] [address] USACreatinine [Mass/volume] in UrineOrdered By: Marilyn Stewart on 60-80-0829Ukckwrbfzd (U) [Mass/Vol]63.00 mg/dLHolzer Medical Center – JacksonComment on above:No reference range establishedDipstick and Microscopicon 86-41-5424Mcwfhqpn,UrineNone SeenNormalNone SeenThe [facility] Physician Group Comment on above:Order Comment: A1C IS NOT DUE UNTIL OCTOBER.Performed By: #### MG, CMP, CBC, LIPID #### [place] [id number] USABilirubin,UrineNegativeNormalNegativeThe [facility] Physician GroupComment on above:Order Comment: A1C IS NOT DUE UNTIL OCTOBER. Performed By: #### MG, CMP, CBC, LIPID #### [facility] [address] [place] [address] USAGlucose Ql (U)NormalNormalNormalThe [facility] Physician GroupComment on above:Order Comment: A1C IS NOT DUE UNTIL OCTOBER.Performed By: #### MG, CMP, CBC, LIPID #### [facility] [address] [place] [address] USAHyaline Casts,UrineNoneNormal0-8The [facility] Physician GroupComment on above:Order Comment: A1C IS NOT DUE UNTIL OCTOBER.Performed By: #### MG, CMP, CBC, LIPID #### [facility] [address] [place] [address] USAMucus,UrineRareNormalKeralty Hospital Miami Physician GroupComment on above:Order Comment: A1C IS NOT DUE UNTIL OCTOBER.Result Comment: PERFORMED BY: [place] [address] PATHOLOGIST CYLINDER HONER KARTHIK CHICAS M.D.Performed By: #### MG, CMP, CBC, LIPID #### [facility] [address] [place] [address] USANitrite,UrineNegativeNormalNegativeKeralty Hospital Miami Physician GroupComment on above:Order Comment: A1C IS NOT DUE UNTIL OCTOBER.Performed By: #### MG, CMP, CBC, LIPID #### [facility] [address] [place] [address] USAOccult Blood,UrineNegativeNormalNegativeKeralty Hospital Miami Physician GroupComment on above:Order Comment: A1C IS NOT DUE UNTIL OCTOBER. Performed By: #### MG, CMP, CBC, LIPID #### [facility] [address] [place] [address] USAProtein,UrineNegativeNormalNegativeThe [facility] Physician GroupComment on above:Order Comment: A1C IS NOT DUE UNTIL OCTOBER.Performed By: #### MG, CMP, CBC, LIPID #### [facility] [address] [place] [address] USARBC,Gwawe4-5Blypkf5-8Aap [facility] Physician GroupComment on above:Order Comment: A1C IS NOT DUE UNTIL OCTOBER.Performed By: #### MG, CMP, CBC, LIPID #### [facility] [address] [place] [address] USASpecificy Cadiz,Urine1.438Ksuzyb9.001-1.030The [facility] Physician GroupComment on above:Order Comment: A1C IS NOT DUE UNTIL OCTOBER. Performed By: #### MG, CMP, CBC, LIPID #### [facility] [address] [place] [address] USASquamous Epithelial Cell,Vumzw7-2Zpfwyn3-8Qes [facility] Physician GroupComment on above:Order Comment: A1C IS NOT DUE UNTIL OCTOBER. Performed By: #### MG, CMP, CBC, LIPID #### [facility] [address] [place] [address] USAUrobilinogen,UrineNormalNormalNormalThe [facility] Physician GroupComment on above:Order Comment: A1C IS NOT DUE UNTIL OCTOBER. Performed By: #### MG, CMP, CBC, LIPID #### [facility] [address] [place] [address] USAWBC,Zdgms6-8Owpnqa2-7Fdy [facility] Physician GroupComment on above:Order Comment: A1C IS NOT DUE UNTIL OCTOBER.Performed By: #### MG, CMP, CBC, LIPID #### [facility] [address] [place] [address] USAEpithelial cells.squamous [#/area] in Urine sediment by Automated countOrdered By: Marilyn Smithr on 35-55-3700Zbadfbproa cells.squamous Auto (Urine sed) [#/Area]5-9 [HPF]High0-2FJ.W. [facility] Erythrocyte distribution width [Ratio] by Automated countOrdered By: Marilyn Terry on 21-59-5469Qfazclglqxr distribution width (RBC) [Ratio]16.6 %High11.9-15.3 [facility] – JacksonComment on above:Performed By: #### MG, CMP, CBC, LIPID #### [facility] [address] [place] [address] USAErythrocytes [#/area] in Urine sediment by Automated count Ordered By: Marilyn Smithr on 74-36-4930ZTH Auto (Urine sed) [#/Area]1-2 [HPF]0-4 [facility] – JacksonErythrocytes [#/volume] in Blood by Automated countOrdered By: Marilyn Stewart on 58-29-3570EUC (Bld) [#/Vol]3.77 10*6/uLNormal 3.60-5.00[facility] – JacksonComment on above:Performed By: #### MG, CMP, CBC, LIPID #### [facility] [address] [place] [address] USAGlucose [Mass/volume] in Serum or PlasmaOrdered By: Vinay Matta on 66-72-8317Tqgzlta [Mass/Vol]171 mg/yQIcxf34-309UwtrixirdHolzer Medical Center – JacksonComment on above:ADA recommended reference rangeRandom Glucose Reference [...] By: #### MG, CMP, CBC, LIPID #### [facility] [address] [place] [address] USAGlucose [Mass/volume] in Urine by Test stripOrdered By: Marilyn Stewart on 05-79-4443Xbzmyof Test strip (U) [Mass/Vol]Normal mg/dLNormal [facility] – JacksonHematocrit [Volume Fraction] of Blood by Automated countOrdered By: Marilyn Stewart on 66-31-7051Xhwshsfcdn (Bld) [Volume fraction]32.4 %Low34.0-46.4FJ.W. Ruby Memorial HospitalComment on above: Performed By: #### MG, CMP, CBC, LIPID #### [facility] [address] [place] [address] USAHemoglobin A1c/Hemoglobin.total in BloodOrdered By: Vinay Matta on 66-96-8476TuT2m (Bld) [Mass fraction]7.1 %High4.3-5.6FJ.W. Ruby Memorial HospitalComment on above:Increased risk for diabetes: 5.7 - 6.4diabetes: >6.4glycemic control for adults with diabetes: <7.0Result Comment: Increased risk for diabetes: 5.7 - 6.4 diabetes: >6.4 glycemic control for adults with diabetes: <7.0Performed By: #### A1C WTH eA, LIPID #### [facility] [address] [place] [address] USAHemoglobin Test strip Ql (U)Ordered By: Marilyn Stewart on 26-74-4397Yavkvtucow Ql (U)NegativeNegGuernsey Memorial Hospital Hemoglobin [Mass/volume] in BloodOrdered By: Marilyn Stewart on 76-18-7941Uhfyzuqvfg (Bld) [Mass/Vol]11.1 g/dLLow11.8-15.4FJ.W. Ruby Memorial HospitalComment on above:Performed By: #### MG, CMP, CBC, LIPID #### [place] [address] USAHemogram CBC Without Diffon 38-38-0520Pgyb Corpuscular HGB Conc34.1 g/rEGzzhbm91.0-35.0The [facility] Physician GroupComment on above: Performed By: #### MG, CMP, CBC, LIPID #### [place] [address] USAWhite Blood Count5.4 [CFU]/mLNormal3.8-11.6The [facility] Physician GroupComment on above:Performed By: #### MG, CMP, CBC, LIPID #### [place] [address] USAHyaline casts [#/area] in Urine sediment by Automated countOrdered By: Marilyn Stewart on 74-17-5815Lmeqkaw casts Auto (Urine sed) [#/Area]None [LPF]0-8[facility] Center – JacksonKetones [Presence] in Urine by Test stripOrdered By: Marilyn Stewart on 15-17-8938Bwzehjj Ql (U)Negative NormalNegGuernsey Memorial HospitalComment on above:Order Comment: A1C IS NOT DUE UNTIL OCTOBER.Performed By: #### MG, CMP, CBC, LIPID #### [facility] [address] [place] [address] USALeukocyte esterase [Presence] in Urine by Test strip Ordered By: Marilyn Stewart on 00-84-8361Htoaqnigp esterase Test strip Ql (U) NegativeNormalNegativeHolzer Medical Center – JacksonComment on above:Order Comment: A1C IS NOT DUE UNTIL OCTOBER.Performed By: #### MG, CMP, CBC, LIPID #### [facility] [address] [place] [address] USALeukocytes [#/area] in Urine sediment by Automated count Ordered By: Marilyn Stewart on 02-24-6089ODF Auto (Urine sed) [#/Area]1-2 [HPF]0-4 [facility] – JacksonLeukocytes [#/volume] corrected for nucleated erythrocytes in Blood by Automated counOrdered By: Marilyn Stewart on 16-28-7704WIQ corrected for nucl RBC Auto (Bld) [#/Vol]5.4 10*3/uL3.8-11.6FJ.W. Ruby Memorial HospitalLipid Panelon 07-81-1700HPU Cholesterol,Saczwqffpm91 mg/dLNormal 0-100The [facility] Physician GroupComment on above:Result Comment: LDL ATP III CLASSIFICATION LDL less than 100 mg/dL Optimal LDL 100-129 mg/dL Near or above optimal LDL 130-159 mg/dL Borderline high LDL 160-189 mg/dL High LDL greater than 189 mg/dL Very highPerformed By: #### A1C WTH eA, LIPID #### [facility] [address] [place] [address] USATriglyceride w/Jrqhij414 mg/dLNormal0-149The [facility] Physician GroupComment on above:Result Comment: TRIG ATP III CLASSIFICATION TRIG less than 150 mg/dL Normal TRIG 150-199 mg/dL Borderline high TRIG 200-500 mg/dL High TRIG greater than 500 mg/dL Very high Standard traceable to the Center for Disease Conrtrol and Prevention (CDC) test method.Performed By: #### A1C WTH eA, LIPID #### [facility] [address] [place] [address] USAVLDL BXQGGPRUIMX49 mg/dLNormalThe [facility] Physician GroupComment on above:Performed By: #### A1C WTH eA, LIPID #### [facility] [address] [Entitic mass] by Automated countOrdered By: Marilyn Stewart on 50-24-1006KQE (RBC) [Entitic mass]29.3 qhGtytzb62.7-34.3FJ.W. Ruby Memorial HospitalComment on above:Performed By: #### MG, CMP, CBC, LIPID #### [facility] [address] Auto (RBC) [Mass/Vol]Ordered By: Marilyn Stewart on 37-71-0655IDYL (RBC) [Mass/Vol]34.1 g/dL32.0-35.0[facility] – JacksonMCV [Entitic volume] by Automated countOrdered By: Marilyn Stewart on 30-59-9980RKI (RBC) [Entitic vol]86.0 wZDmipmb21-665FnecijysbHolzer Medical Center – JacksonComment on above:Performed By: #### MG, CMP, CBC, LIPID #### [facility] [address] [place] [address] USAMagnesium [Mass/volume] in Serum or PlasmaOrdered By: Marilyn Stewart on 25-29-6738Lmikcgeor [Mass/Vol]1.4 mg/dLLow1.9-2.7FJ.W. Ruby Memorial HospitalComment on above:Performed By: #### MG, CMP, CBC, LIPID #### [facility] [address] [place] [address] USAMucus [Presence] in Urine by AutomatedOrdered By: Marilyn Stewart on 30-35-4507Ugkup Auto Ql (U)Rare [LPF][facility] Nitrite Test strip Ql (U)Ordered By: Marilyn Stewart on 50-42-0805Vuesrwu Ql (U) NegativeNegativeHolzer Medical Center – JacksonNo Panel InformationOrdered By: Vinay Matta on 57-68-1777Wqmvvxdey GFR (CKD-EPI)41.095 mL/MinHolzer Medical Center – JacksonPharmacy Creatinine Clearance (ChemN/AFJ.W. Ruby Memorial HospitalParathyrin.intact [Mass/volume] in Serum or PlasmaOrdered By: Marilyn Smithr on 59-65-2465Ikbeduyvez.intact [Mass/Vol]48.7 pg/uN13-29QbktuaxyvHolzer Medical Center – JacksonParathyroid Hormone Intacton 52-31-7135Xbgjhggboka Hormone Rdbeif14.7 pg/wOYchfoz35-11Ahg [facility] Physician GroupComment on above:Result Comment: PERFORMED BY: [place] [address] PATHOLOGIST CYLINDER HONER KARTHIK CHICAS M.D.Performed By: #### MG, CMP, CBC, LIPID #### [facility] [address] [place] [address] USAPhosphate [Mass/volume] in Serum or PlasmaOrdered By: Marilyn Terry on 23-75-2235Uegsvcazb [Mass/Vol]4.0 mg/dLNormal2.5-4.5FJ.W. Ruby Memorial HospitalComment on above:Result Comment: PERFORMED BY: [place] [address] PATHOLOGIST CYLINDER HONER KARTHIK CHICAS M.D.Performed By: #### MG, CMP, CBC, LIPID #### [facility] [address] [place] [address] USAPlatelet mean volume [Entitic volume] in Blood by Automated countOrdered By: Marilyn Stewart on 88-95-9337Kalugpnf mean volume (Bld) [Entitic vol]7.1 fLNormal6.3-10.7FJ.W. Ruby Memorial HospitalComment on above:Result Comment: PERFORMED BY: [place] [id number] PATHOLOGIST CYLINDER HONER KARTHIK CHICAS M.D.Performed By: #### MG, CMP, CBC, LIPID #### [facility] [address] [place] [address] USAPlatelets [#/volume] in Blood by Automated countOrdered By: Marilyn Terry on 77-20-4006Vqfkdkvbo (Bld) [#/Vol]141 10*3/tZCvi201-390 [facility] – JacksonComment on above:Performed By: #### MG, CMP, CBC, LIPID #### [facility] [address] [place] [address] USAPotassium [Moles/volume] in Serum or PlasmaOrdered By: Vinay Bunting on 14-05-8239Ozmfggdcc [Moles/Vol]4.6 mmol/LNormal3.5-5.1 [facility] – JacksonComment on above:Performed By: #### MG, CMP, CBC, LIPID #### [facility] [address] [place] [address] USAProtein Creat Ratio Ur Randomon 95-16-4243Gybsvrrkhe, Urine (Random)63.00 mg/dLNormalThe [facility] Physician GroupComment on above: Order Comment: A1C IS NOT DUE UNTIL OCTOBER.Result Comment: No reference range establishedPerformed By: #### MG, CMP, CBC, LIPID #### [place] [address] USAUrine Protein/Creatinine Ydvgb063 mg/g{Cre}High0-200The [facility] Physician GroupComment on above:Order Comment: A1C IS NOT DUE UNTIL OCTOBER.Result Comment: PERFORMED BY: [place] [address] PATHOLOGIST CYLINDER HONER KARTHIK CHICAS M.D.Performed By: #### MG, CMP, CBC, LIPID #### [place] [id number] USAProtein Test strip (U) [Mass/Vol]Ordered By: Marilyn Stewart on 11-36-4127Nehgxhe (U) [Mass/Vol]NegativeNegativeHolzer Medical Center – JacksonProtein [Mass/volume] in Serum or PlasmaOrdered By: Vinay Bunting on 54-90-3123Euripea [Mass/Vol]5.8 g/dLLow6.4-8.9[facility] Comment on above:Performed By: #### MG, CMP, CBC, LIPID #### [place] [address] USAProtein [Mass/volume] in UrineOrdered By: Marilyn Stewart on 70-17-9262Dqmdvqc (U) [Mass/Vol]14 mg/dLHigh0-9[facility] Comment on above:Order Comment: A1C IS NOT DUE UNTIL OCTOBER.Performed By: #### MG, CMP, CBC, LIPID #### [facility] [address] [place] [address] USASerum globulin measurement by calculation (mass/volume) Ordered By: Vinay Bunting on 45-23-6819Qbqjjzsi (S) [Mass/Vol]2.0 g/dLNormal [facility] JacksonComment on above:Performed By: #### MG, CMP, CBC, LIPID #### [facility] [address] [place] [address] USASerum or plasma albumin/globulin mass ratioOrdered By: Vinay Bunting on 54-50-7451Ghgkcpc/Globulin [Mass ratio]1.9 {ratio}Normal [facility] – JacksonComment on above:Performed By: #### MG, CMP, CBC, LIPID #### [facility] [address] [place] [address] USASerum or plasma anion gap determinationOrdered By: Vinay Bunting on 81-66-4282Ntjre gap [Moles/Vol]9.2 mmol/LNormal6.0-15.0[facility] – JacksonComment on above:Performed By: #### MG, CMP, CBC, LIPID #### [facility] [address] [place] [address] USASerum or plasma total cholesterol/high density lipoprotein (HDL) cholesterol mass ratOrdered By: Vinay Bunting on 06-26-2025 Cholesterol.total/Cholesterol in HDL [Mass ratio]2.8 {ratio}Normal<5.0[facility] – JacksonComment on above:Result Comment: PERFORMED BY: [place] [address] PATHOLOGIST CYLINDER HONER KARTHIK CHICAS M.D.Performed By: #### A1C WTH eA, LIPID #### [place] [address] USASodium [Moles/volume] in Serum or PlasmaOrdered By: Vinay Bunting on 60-47-6592Coxolt [Moles/Vol]140 mmol/SCymwje483-430HzsueflatHolzer Medical Center – JacksonComment on above:Performed By: #### MG, CMP, CBC, LIPID #### [facility] [address] [place] [address] USASpecific gravity Test strip (U) [Rel density]Ordered By: Marilyn Stewart on 98-89-0395Hbqcinkp gravity (U) [Rel density]1.0161.001-1.030 [facility] – JacksonTriglyceride [Mass/volume] in Serum or Plasma Ordered By: Vinay Bunting on 86-45-6582Shrsypzvcpfy [Mass/Vol]112 mg/dL0-149 [facility] – JacksonComment on above:TRIG ATP III CLASSIFICATIONTRIG less than 150 mg/dL NormalTRIG 150-199 mg/dL Borderline highTRIG 200-500 mg/dL High TRIG greater than 500 mg/dL Very highStandard traceable to the Center for Disease Conrtrol and Prevention (CDC) test method. Urate [Mass/volume] in Serum or PlasmaOrdered By: Marilyn Stewart on 89-89-0438Sjmrc [Mass/Vol]3.7 mg/dLNormal2.3-6.6FJ.W. Ruby Memorial HospitalComment on above:Performed By: #### MG, CMP, CBC, LIPID #### [facility] [address] [place] [address] USAUrea nitrogen [Mass/volume] in Serum or PlasmaOrdered By: Vinay Bunting on 40-64-1952Tqcv nitrogen [Mass/Vol]33 mg/dLHigh7-25[facility] – JacksonComment on above:Performed By: #### MG, CMP, CBC, LIPID #### [facility] [address] [place] [address] USAUrine protein/creatinine ratioOrdered By: Marilyn Terry on 22-65-4829Aduxtni/Creatinine (U) [Ratio]222 mg/g{Cre}High0-200[facility] – JacksonUrobilinogen Test strip (U) [Mass/Vol]Ordered By: Marilyn Terry on 02-25-2156Osjkhpxakngq (U) [Mass/Vol]Normal mg/dLNormalHolzer Medical Center – JacksonVitamin D 25 Hydroxy Totalon 04-70-4234Qhiuccp D 25 Hydroxy Total 61.6 ng/rFFfudhy12-235Aqb [facility] Physician GroupComment on above:Result Comment: VITAMIN D STATUS 25(OH)VITAMIN D RANGE (ng/mL) Deficient <20 Insufficient 20 to <30 Sufficient 30 to 100 Reference: Albert Campo, Beltran LACKEY, et al. Evaluation,treatment, and prevention of vitamin D deficiency; an Endocrine Society clinical practice guideline. JCEM. 2010; 96(7):1911-. PERFORMED BY: [place] [id number] PATHOLOGIST CYLINDER HONER KARTHIK CHICAS M.D.Performed By: #### MG, CMP, CBC, LIPID #### [facility] [address] [place] [address] USAVitamin D+Metabolites [Mass/volume] in Serum or Plasma Ordered By: Marilyn Stewart on 07-71-2328Sbpgomu D+Metabolites [Mass/Vol]61.6 ng/mL 30-100[facility] – JacksonComment on above:VITAMIN D STATUS 25(OH)VITAMIN D RANGE (ng/mL) Deficient <20 Insufficient 20 to <26Nvmiufghxo24 to 100Reference: Albert Campo, Beltran LACKEY, et al. Evaluation,treatment, and prevention of vitamin D deficiency; an Endocrine Society clinical practice guideline. JCEM. 2010; 96(7):191-.pH of Urine by Test stripOrdered By: Marilyn Stewart on 32-76-6058wT (U)6.0 [pH]Normal5.0-9.0 [facility] – JacksonComment on above:Order Comment: A1C IS NOT DUE UNTIL OCTOBER.Performed By: #### MG, CMP, CBC, LIPID #### [facility] [address] [place] [address] USACNOVSPon 36-66-8835JOTXXYKydzs (SP) Office (HEMASA) ANH TEJEDA ([id number]) 1950 F Date Time Provider Department 04/25/25 11:00 AM DAKSHA BRIDGES During your visit today, we recorded the following information about you: Temperature Pulse Respiration Blood pressure 97.9 degrees 84/minute 18/minute 158/78 Weight Height 100.9 kg 1.58 m Daksha Bridges PA-C 04/25/2025 11:19 AM Signed Hematology Progress Note PATIENT NAME: Anh Tejeda CLINIC NO.: [id number] ATTENDING PHYSICIAN: Henry Walker MD DATE OF [...] ?C (97.9 ?F) (Temporal) (more content not included)...NormalProtestant HospitalERYTHROPOIETIN/EPOon 04-19-2025 Erythropoietin (EPO) Qn26.7 [IU]/LHighUniversity Hospitals Elyria Medical CenterErythropoietin (EPO) Qnon 70-63-9271Obfaaxfihqebem and review of laboratory resultsAbnormalCleveland ClinicTest analyzed by the Numerous DxI method.[facility] CBC W Auto Differential panel (Bld)on 25-17-3060Svvgtysbg (Bld) [#/Vol]NINF [facility] Medical CenterBasophils/100 WBC (Bld)0.2 %[facility] Medical CenterDifferential cell count method Nom (Bld)AutoCleveland ClinicEosinophils (Bld) [#/Vol]0.09 10*3/uL NINFClevelcape fear valley medical center ClinicEosinophils/100 WBC (Bld)1.6 %[facility] Medical CenterErythrocyte distribution width (RBC) [Ratio]16.4 %High11.5 - 15.0 %[facility] Hematocrit (Bld) [Volume fraction]32.9 %Low36.0 - 46.0 %[facility] Hemoglobin (Bld) [Mass/Vol]11 g/dLLow11.5 - 15.5 g/dLUniversity Hospitals Elyria Medical CenterImmature granulocytes (Bld) [#/Vol]NINFClevelSCCI Hospital LimaImmature granulocytes/100 WBC (Bld)0.4 %[facility] Medical CenterLymphocytes (Bld) [#/Vol]1.4 10*3/uLUniversity Hospitals Elyria Medical Center Lymphocytes/100 WBC (Bld)24.8 %[facility] HospitalH (RBC) [Entitic mass]29.5 pg 26.0 - 34.0 pgCKindred HealthcareMCHC (RBC) [Mass/Vol]33.4 g/dL30.5 - 36.0 g/dL WVUMed[facility] Harrison Community HospitalV (RBC) [Entitic vol]88.2 fL80.0 - 100.0 fLCKindred Healthcare Monocytes (Bld) [#/Vol]0.36 10*3/uLNINFUniversity Hospitals Elyria Medical CenterMonocytes/100 WBC (Bld) 6.4 %[facility] Medical CenterNeutrophils (Bld) [#/Vol]3.77 10*3/[facility] Neutrophils/100 WBC (Bld)66.6 %[facility] Medical CenterNucleated RBC (Bld) [#/Vol]NINF [facility] Medical CenterNucleated RBC/100 WBC (Bld) [Ratio]0 %/100 WBCUniversity Hospitals Elyria Medical Center Platelet mean volume (Bld) [Entitic vol]9 fL9.0 - 12.7 fLCKindred Healthcare Platelets (Bld) [#/Vol]136 10*3/uLLowUniversity Hospitals Elyria Medical CenterRBC (Bld) [#/Vol]3.73 10*6/uLLow3.90 - 5.20 m/[facility] Medical CenterWBC (Bld) [#/Vol]5.65 10*3/[facility] Medical CenterBasophils (Bld) [#/Vol]10*3/uLNormal<0.11CCincinnati Shriners Hospital Comment on above:Order Comment: Specimen Type: BLOOD SPECIMENOrdering Facility: [facility] Address:[address] [place] [address] Performed By: #### 30162-2, 45439-1 ####[facility] LABIA [id number] [place], [place] [address]Ojbqvnplj/100 WBC (Bld)0.2 %NormalProtestant HospitalComment on above:Order Comment: Specimen Type: BLOOD SPECIMENOrdering Facility: [facility] Address:[address] [place], [place] [address]Hywknutoi By: #### 65307-2, 82771-0 ####[facility] LABCLIA [id number] [place], [place] [address]Usmkouxejiao cell count method Nom (Bld)AutoNormal Protestant HospitalComveterans affairs [facility] on above:Order Comment: Specimen Type: BLOOD SPECIMENOrdering Facility: [facility] Address:[address] [place], [place] [address]Performed By: #### 64933-9, 81894-3 ####[facility] LABCLIA [id number] [place] [address] Eosinophils (Bld) [#/Vol]0.09 10*3/uLNormal<0.46[facility] Comment on above:Order Comment: Specimen Type: BLOOD SPECIMENOrdering Facility: [facility] Address:[address] [place] [address] Performed By: #### 50038-7, 33750-2 ####[facility] LABCLIA [id number] [place], [place] [address]Subjoaqkcfs/100 WBC (Bld)1.6 %NormalCleveland Clinic Marymount [facility] on above:Order Comment: Specimen Type: BLOOD SPECIMENOrdering Facility: [facility] Address:[address] [place], [place] [address]Performed By: #### 19851-5, 62751-5 ####[facility] LABCLIA [id number] [place], [place] [address]Pjddsovlbdc distribution width (RBC) [Ratio]16.4 %High 11.5-15.0[facility] on above:Order Comment: Specimen Type: BLOOD SPECIMENOrdering Facility: [facility] Address:[address] [place], [place] [address]Performed By: #### 58185-3, 58745-6 ####[facility] LABCLIA [id number] [place], [place] [address]Bijsvlwbfx (Bld) [Volume fraction]32.9 %Low36.0-46.0 [facility] on above:Order Comment: Specimen Type: BLOOD SPECIMENOrdering Facility: [facility] Address:[address] [place], [place] [address]Performed By: #### 04961-0, 26426-8 ####[facility] [facility] LABCLIA [id number] [place] [address] Hemoglobin (Bld) [Mass/Vol]11.0 g/dLLow11.5-15.5CCincinnati [facility] Comment on above:Order Comment: Specimen Type: BLOOD SPECIMENOrdering Facility: [facility] Address:[address] [place] [address] Performed By: #### 80979-6, 99207-8 ####[facility] LABIA [id number] [place], [place] [address]Tykpqrhk granulocytes (Bld) [#/Vol]10*3/uLNormal<0.10[facility] on above:Order Comment: Specimen Type: BLOOD SPECIMENOrdering Facility: [facility] Address:[address] [place], [place] [address]Performed By: #### 77004- 8, 25397-0 ####[facility] LABIA [id number] [place], [place] [address]Ymilshnt granulocytes/100 WBC (Bld)0.4 %Normal [facility] on above:Order Comment: Specimen Type: BLOOD SPECIMENOrdering Facility: [facility] Address:[address] [place], [place] [address]Performed By: #### 08085-4, 96000-8 ####[facility] LABIA [id number] [place] [address] Lymphocytes (Bld) [#/Vol]1.40 10*3/uLNormal1.00-4.00[facility] Comment on above:Order Comment: Specimen Type: BLOOD SPECIMENOrdering Facility: [facility] Address:[address] [place] [address] Performed By: #### 32094-1, 92849-9 ####[facility] LABCLIA [id number] [place], [place] [address]Oemuxgzjrtx/100 WBC (Bld)24.8 %NormalCleveland Clinic [facility] on above:Order Comment: Specimen Type: BLOOD SPECIMENOrdering Facility: [facility] Address:[address] [place], [place] [address]Performed By: #### 68797-0, 23652-5 ####[facility] LABCLIA [id number] [place], [place] [address]WCG (RBC) [Entitic mass]29.5 mcVjyuqm74.0-34.0[facility] on above:Order Comment: Specimen Type: BLOOD SPECIMENOrdering Facility: [facility] Address:[address] [place], [place] [address]Performed By: #### 85624-7, 21501-4 ####[facility] LABCLIA [id number] [place], [place] [address]PLTY (RBC) [Mass/Vol]33.4 g/dBJdjqky88.5-36.0[facility] on above:Order Comment: Specimen Type: BLOOD SPECIMENOrdering Facility: [facility] Address:[address] [place], [place] [address]Performed By: #### 08223-8, 37556-8 ####[facility] LABCLIA [id number] [place], [place] [address]NUB (RBC) [Entitic vol]88.2 fLNormal 80.0-100.0[facility] on above:Order Comment: Specimen Type: BLOOD SPECIMENOrdering Facility: [facility] Address:[address] [place], [place] [address]Performed By: #### 10894-1, 59337-1 ####[facility] LABCLIA [id number] [place], [place] [address]Hmdyajnbf (Bld) [#/Vol]0.36 10*3/uLNormal<0.87[facility] on above:Order Comment: Specimen Type: BLOOD SPECIMENOrdering Facility: [facility] Address:[address] [place], [place] [address]Performed By: #### 73533-7, 85944-1 ####[facility] LABCLIA [id number] [place] [address] Monocytes/100 WBC (Bld)6.4 %NormalCleveland Clinic [facility] on above: Order Comment: Specimen Type: BLOOD SPECIMENOrdering Facility: [facility] Address:[address] [place], [place] [address]Performed By: #### 26646- 8, 82513-0 ####[facility] LABIA [id number] [place], [place] [address]Djjzjogtpqa (Bld) [#/Vol]3.77 10*3/uLNormal 1.45-7.50[facility] on above:Order Comment: Specimen Type: BLOOD SPECIMENOrdering Facility: [facility] Address:[address] [place], [place] [address]Performed By: #### 22136-9, 72871-4 ####[facility] LABIA [id number] [place], [place] [address]Mulyfuzherv/100 WBC (Bld)66.6 %NormalCleveland Clinic [facility] on above:Order Comment: Specimen Type: BLOOD SPECIMENOrdering Facility: [facility] Address:[address] [place], [place] [address]Performed By: #### 88166-2, 00465-2 ####[facility] LABIA [id number] [place], [place] [address]Uwhtifali RBC (Bld) [#/Vol]10*3/uLNormal<0.01[facility] on above:Order Comment: Specimen Type: BLOOD SPECIMENOrdering Facility: [facility] Address:[address] [place], [place] [address]Performed By: #### 31147- 8, 33110-9 ####[facility] LABCLIA [id number] [place], [place] [address]Zwkrpwaov RBC/100 WBC (Bld) [Ratio]0.0 /100 WBC NormalCleveland Clinic [facility]mount Hospital on above:Order Comment: Specimen Type: BLOOD SPECIMENOrdering Facility: [facility] Address:[address] [place], [place] [address]Performed By: #### 05980-2, 10589-1 ####[facility] LABCLIA [id number] [place], [place] [address]Jafoegbh mean volume (Bld) [Entitic vol]9.0 fLNormal9.0-12.7CParkview Health on above:Order Comment: Specimen Type: BLOOD SPECIMENOrdering Facility: [facility] Address:[address] [place], [place] [address]Performed By: #### 02712-8, 97324-3 ####[facility] LABCLIA [id number] [place] [address] Platelets (Bld) [#/Vol]136 10*3/lSUis482-770HqxhbsmtgCleveland Clinic [facility] on above:Order Comment: Specimen Type: BLOOD SPECIMENOrdering Facility: [facility] Address:[address] [place], [place] [address]Performed By: #### 59316-0, 71304-5 ####[facility] LABCLIA [id number] [place], [place] [address]PTD (Bld) [#/Vol]3.73 10*6/uLLow3.90-5.20 [facility] on above:Order Comment: Specimen Type: BLOOD SPECIMENOrdering Facility: [facility] Address:[address] [place], [place] [address]Performed By: #### 01402-8, 98772-7 ####[facility] LABCLIA [id number] [place], [place] [address]WOR (Bld) [#/Vol]5.65 10*3/uLNormal3.70-11.00[facility] HospitalComment on above:Order Comment: Specimen Type: BLOOD SPECIMENOrdering Facility: [facility] Address:[address] [place], [place] [address]Dyfkirhfm By: #### 24302-3, 10208-4 ####[facility] LABCLIA [id number] [place], [place] [address]Wttrzmtxakegs metabolic 2000 panelOrdered By: Naida Bruce on 27-44-2737Gqajpuk [Mass/Vol]4.2 g/dL3.9 - 4.9 g/dLWitter ClinicALP [Catalytic activity/Vol]157 U/LHigh34 - 123 U/LCleveland ClinicALT [Catalytic activity/Vol]17 U/L7 - 38 U/LCleveland ClinicAnion gap [Moles/Vol]10 mmol/L8 - 15 mmol/LCleveland ClinicAST [Catalytic activity/Vol]18 U/L13 - 35 U/L [facility] CenterBilirubin [Mass/Vol]0.8 mg/dL0.2 - 1.3 mg/dLUniversity Hospitals [facility] Calcium [Mass/Vol]10 mg/dL8.5 - 10.2 mg/dLWitter ClinicChloride [Moles/Vol] 102 mmol/L98 - 107 mmol/LCleveland ClinicCO2 [Moles/Vol]28 mmol/L22 - 30 mmol/L [facility] Medical CenterCreatinine [Mass/Vol]1.16 mg/dLHigh0.58 - 0.96 mg/dLUniversity Hospitals Elyria Medical CenterGFR/1.73 sq M.predicted among non-blacks MDRD (S/P/Bld) [Vol [...] eGFRmay not accurately reflect actual GFR.Glucose [Mass/Vol]154 mg/dHOxnx30 - 99 mg/dL [facility] on above:The [place] Diabetes Association (ADA) provides guidance for cutoff [...] Standards of Medical Care in Diabetes 2016, [place] Diabetes Association. Diabetes Care. 2016.39(Suppl 1). Interpretation and review of laboratory resultsAbnormalCleveland ClinicPotassium [Moles/Vol]4.9 mmol/L3.7 - 5.1 mmol/LClevelcape fear valley medical center ClinicProtein [Mass/Vol]6.4 g/dL 6.3 - 8.0 g/dLUniversity Hospitals Health Systemodium [Moles/Vol]140 mmol/L136 - 144 mmol/L [facility] Medical CenterUrea nitrogen [Mass/Vol]33 mg/dLHigh7 - 21 mg/dLJoint Township District Memorial HospitalComprehensive metabolic 2000 panelon 79-83-1867Ylgozov [Mass/Vol]4.2 g/dLNormal3.9-4.9CParkview Health on above:Order Comment: Specimen Type: BLOOD SPECIMEN [facility] Address: [address] [place], [place] [address]Performed By: #### 21864-1, 2276-4 #### [facility] CLIA [id number] [address] [place] [address] [place] AMERICAALP [Catalytic activity/Vol] 157 U/JBdjh34-311UzcxeywjuC[facility] Clinic [facility] on above:Order Comment: Specimen Type: BLOOD SPECIMEN [facility] Address: [address] [place], [place] [address]Performed By: #### 35818-1, 2276-02 #### [facility] CLIA [id number] [address] [place], [place] [address] [place] AMERICAALT [Catalytic activity/Vol] 17 U/LNormal7-38[facility] on above:Order Comment: Specimen Type: BLOOD SPECIMEN [facility] Address: [address] [place], [place] [address]Performed By: #### 30636-2, 2276-02 #### [facility] CLIA [id number] [address] [place] [address] [place] AMERICAAnion gap [Moles/Vol]10 mmol/LNormal8-15[facility] on above:Order Comment: Specimen Type: BLOOD SPECIMEN [facility] Address: [address] [place], [place] [address]Performed By: #### 80892-8, 2276-02 #### [facility] CLIA [id number] [address] [place] [address] [place] AMERICAAST [Catalytic activity/Vol] 18 U/LDwtakc39-22JhxwxororC[facility] Clinic [facility] on above:Order Comment: Specimen Type: BLOOD SPECIMEN [facility] Address: [address] [place], [place] [address]Performed By: #### 08887-9, 2276-02 #### [facility] CLIA [id number] [address] [place], [place] [address] [place] AMERICABilirubin [Mass/Vol]0.8 mg/dLNormal0.2-1.3CParkview Health on above:Order Comment: Specimen Type: BLOOD SPECIMEN [facility] Address: [address] [place], [place] [address]Performed By: #### 10383-9, 2275- #### [facility] CLIA [id number] [address] [place] [address] [place] AMERICACalcium [Mass/Vol]10.0 mg/dL Normal8.5-10.2CParkview Health on above:Order Comment: Specimen Type: BLOOD SPECIMEN [facility] Address: [address] [place], [place] [address]Performed By: #### 29277-8, 2276-02 #### [facility] CLIA [id number] [address] [place] [address] [place] AMERICAChloride [Moles/Vol]102 mmol/RWgftkf53-720SkgpwatseC[facility] Clinic [facility] on above:Order Comment: Specimen Type: BLOOD SPECIMEN [facility] Address: [address] [place], [place] [address]Performed By: #### 19659-3, 2276-02 #### [facility] CLIA [id number] [address] [place] [address] [place] AMERICACO2 [Moles/Vol]28 mmol/L Fxflxr27-34JqsohawuzC[facility] Clinic [facility] Hospital on above:Order Comment: Specimen Type: BLOOD SPECIMEN [facility] Address: [address] [place], [place] [address]Performed By: #### 38295-4, 2276-02 #### [facility] CLIA [id number] [address] [place] [address] [place] AMERICACreatinine [Mass/Vol]1.16 mg/dLHigh0.58-0.96[facility] on above:Order Comment: Specimen Type: BLOOD SPECIMEN [facility] Address: [address] [place], [place] [address]Performed By: #### 69504-0, 2276-02 #### [facility] CLIA [id number] [address] [place] [address] [place] AMERICACreatinine and Glomerular filtration rate.predicted panel (S/P/Bld)49 mL/min/1.73m???Low>=60[facility] on above:Order Comment: Specimen Type: BLOOD SPECIMEN [facility] Address: [address] [place], [place] [address]Result Comment: Estimated Glomerular Filtration Rate (eGFR) is [...] not accurately reflect actual GFR.Performed By: #### 05706-3, 2276-4 #### [facility] CLIA [id number] [address] [place] [address] [place] AMERICAGlucose [Mass/Vol]154 mg/dL Kofn99-99LfuycxjnrCleveland Clinic [facility] Hospital on above:Order Comment: Specimen Type: BLOOD SPECIMEN [facility] Address: [address] [place], [place] [address]Result Comment: The [place] Diabetes Association (ADA) provides guidance for cutoff [...] Standards of Medical Care in Diabetes 2016, [place] Diabetes Association. Diabetes Care. 2016.39(Suppl 1).Performed By: #### 48183-2, 2276-4 #### [facility] CLIA [id number] [address] [place], [place] [address] [place] AMERICAPotassium [Moles/Vol]4.9 mmol/LNormal3.7-5.1[facility] ClevelandComment on above:Order Comment: Specimen Type: BLOOD SPECIMEN [facility] Address: [address] [place], [place] [address]Performed By: #### 09549-2, 6-4 #### [facility] CLIA [id number] [address] [place] [address] [place] AMERICAProtein [Mass/Vol]6.4 g/dL Normal6.3-8.0[facility] on above:Order Comment: Specimen Type: BLOOD SPECIMEN [facility] Address: [address] [place], [place] [address]Performed By: #### 44259-7, 2275-4 #### [facility] IA [id number] [address] [place] [address] [place] AMERICASodium [Moles/Vol]140 mmol/L Fqfvrl108-874KoqgrzlvvC[facility] Clinic [facility] on above:Order Comment: Specimen Type: BLOOD SPECIMEN [facility] Address: [address] [place], [place] [address]Performed By: #### 69278-4, 2275-4 #### [facility] IA [id number] [address] [place] [address] [place] AMERICAUrea nitrogen [Mass/Vol]33 mg/dLHigh7-21[facility] on above:Order Comment: Specimen Type: BLOOD SPECIMEN [facility] Address: [address] [place], [place] [address]Performed By: #### 25719-0, 2275-4 #### [facility] CLIA [id number] [address] [place] [address] [place] AMERICAEPO SerPl-aCncon 04-18-2025 Erythropoietin (EPO) Qn26.7 mIU/mLHigh2.6-18.5CParkview Health on above:Order Comment: Specimen Type: BLOOD SPECIMEN [facility] Address: [address] [place], [place] [address]Performed By: #### 14044-4, 2276-4 #### [facility] CLIA [id number] [address] [place] [address] [place] AMERICAFERRITINon 04-18-2025 Ferritin [Mass/Vol]398 ng/rRAodf00.7 - 205.1 ng/mLCcrystal clinic orthopedic centerand ClinicFOLATE, SERUM on 56-50-6603Irrnjn [Mass/Vol]ng/mL4.7 - PINF ng/mLClevelSCCI Hospital LimaComment on above:A result of > 20 ng/mL is not necessarily indicative of a pathologic or treatable condition: it reflects a limitation of the test methodology. Assay reference range: 4.8 to 24.2 ng/mL. Suitable for detection of folate deficiency. Reference: Folate III (Folate III) [package insert V 1.0 French]. [facility], [place], [place]: September 2015. Ferritin SerPl-mCncon 25-32-6173Psjudjic [Mass/Vol]398.0 ng/nRTfil59.7-205.1 [facility] on above:Order Comment: Specimen Type: BLOOD SPECIMENOrdering Facility: [facility] Address:[address] [place], [place] [address]Performed By: #### 11437-4, 2276-4, 3016-3, 4542-7 ####[facility] LABCLIA [id number] [place] [address] [place] AMERICAFerritin [Mass/Vol]on 04-18-2025 Interpretation and review of laboratory resultsAbnormalCleveland ClinicFolate SerPl-mCncon 47-80-8155Irwbxh [Mass/Vol]ng/mLNormal>4.7CParkview Health on above:Order Comment: Specimen Type: BLOOD SPECIMENOrdering Facility: [facility] Address:[address] [place], [place] [address]Result Comment: A result of > 20 ng/mL is not necessarily indicative of a pathologic or treatable condition: it reflects a limitation of the test methodology. Assay reference range: 4.8 to 24.2 ng/mL. Suitable for detection of folate deficiency. Reference: Folate III (Folate III) [package insert V 1.0 French]. [facility], [place], [place]: September 2015.Performed By: #### 2885-2, 2132-9, 2284-8 ####[facility] LABCLIA [id number] [address] [address] [place] [facility] HOSPITALHAPTOGLOBINon 04-18-2025 Haptoglobin [Mass/Vol]155 mg/dL31 - 238 mg/dLUniversity Hospitals Elyria Medical CenterHaptoglob SerPl-mCncon 03-99-9004Twhgvsnqwwm [Mass/Vol]155 mg/qKUbulwe08-152FamgqclhoC[facility] on above:Order Comment: Specimen Type: BLOOD SPECIMENOrdering Facility: [facility] Address:[address] [place], [place] [address]Performed By: #### 24012-4, 2276-4, 3016-3, 4542-7 ####[facility] LABCLIA [id number] [place] [address] [place] AMERICAIMMUNOFIXATION SCREEN, SERUMon 08-60-7876CSR RESULTNo M protein is identified.NormalNo M protein is identified. [facility] on above:Order Comment: Specimen Type: BLOOD SPECIMEN [facility] Address: [address] [place], [place] [address]Performed By: #### 47804-0, 6-4 #### [facility] CLIA [id number] [address] [place] [address] [place] AMERICASTAFF REVIEW (MPA)Reviewed by Mo Gomes MD, Ph.D ([id number])[facility] on above:Order Comment: Specimen Type: BLOOD SPECIMEN [facility] Address: [address] [place], [place] [address]Performed By: #### 60875-1, 6-4 #### [facility] CLIA [id number] [address] [place] [address] [place] AMERICAIMMUNOGLOBULINS,IGG,IGA,IGM on 97-31-3000FnI [Mass/Vol]48 mg/aCNdm15-210GpxpyzuxmC[facility] on above:Order Comment: Specimen Type: BLOOD SPECIMEN [facility] Address: [address] [place], [place] [address]Performed By: #### 78493-5, 6-4 #### [facility] CLIA [id number] [address] [place] [address] [place] AMERICAIgG [Mass/Vol]682 mg/dLLow 700-1600[facility] on above:Order Comment: Specimen Type: BLOOD SPECIMEN [facility] Address: [address] [place], [place] [address]Performed By: #### 97346-0, 6-4 #### [facility] CLIA [id number] [address] [place] [address] [place] AMERICAIgM [Mass/Vol]42 mg/dLNormal 40-230[facility] on above:Order Comment: Specimen Type: BLOOD SPECIMEN [facility] Address: [address] [place], [place] [address]Performed By: #### 18171-5, 6-4 #### [facility] CLIA [id number] [address] [place] [address] [place] AMERICAIron and Iron binding capacity panelon 66-11-6095Lodr [Mass/Vol]73 ug/dL41 - 186 ug/dLUniversity Hospitals Elyria Medical Center Iron binding capacity [Mass/Vol]336 ug/dL232 - 386 ug/dLUniversity Hospitals Elyria Medical Center Iron/TIBC [Molar ratio]21.7 %15.0 - 57.0 %[facility]ria Medical CenterIron [Mass/Vol]73 ug/mJUyrccl63-155AkoctzfhsC[facility] Clinic [facility] on above:Order Comment: Specimen Type: BLOOD SPECIMENOrdering Facility: [facility] Address:[address] [place], [place] [address]Performed By: #### 83413-5, 6-4, 3016-3, 4542-7 ####[facility] LABCLIA [id number] [place] [address] [place] AMERICAIron binding capacity [Mass/Vol]336 ug/eILndwjr089-306BattkeqmyC[facility] Clinic [facility] on above:Order Comment: Specimen Type: BLOOD SPECIMENOrdering Facility: [facility] Address:[address] [place], [place] [address]Performed By: #### 29725- 8, 6-4, 3016-3, 4542-7 ####[facility] LABCLIA [id number] [place] [address] [place] Iron/TIBC [Molar ratio]21.7 %Vpkuvd32.0-57.0[facility] on above:Order Comment: Specimen Type: BLOOD SPECIMENOrdering Facility: [facility] Address:[address] [place], [place] [address]Performed By: #### 47914-8, 6-4, 3016-3, 4542-7 ####[facility] LABIA [id number] [place] [address] [place]/SAMANIEGO,FREE,SERon 55-01-6905Xgqayhvernnqxb light chains.kappa.free (S) [Mass/Vol]28.2 mg/LHigh3.3-19.4CParkview Health on above:Order Comment: Specimen Type: BLOOD SPECIMEN [facility] Address: [address] [place], [place] [address]Result Comment: Rarely, increased serum free light chains levels may not be detected or accurately quantified due to prozone phenomenon or in high viscosity samples using this immunoturbidimetric assay. Correlation with other laboratory results and clinical findings is recommended. The [place] Free Light Chain was performed using the Binding Site Optilite immunoturbidimetric method. Result obtained with different assay methods or kits cannot be used interchangeably.Performed By: #### 31857-7, 6-4 #### [facility] CLIA [id number] [address] [place] [address] [place] AMERICAImmunoglobulin light chains.kappa/Immunoglobulin light chains.lambda (S) [Mass ratio]1.16Normal 0.26-1.65[facility] on above:Order Comment: Specimen Type: BLOOD SPECIMEN [facility] Address: [address] [place], [place] [address]Performed By: #### 76473-6, 2276-02 #### [facility] CLIA [id number] [address] [place] [address] [place] AMERICAImmunoglobulin light chains.lambda.free [Mass/Vol]24.4 mg/LNormal5.7-26.3CCincinnati [facility]rin[facility] Comment on above:Order Comment: Specimen Type: BLOOD SPECIMEN [facility] Address: [address] [place], [place] [address]Result Comment: Rarely, increased serum free light chains [...] kits cannot be used interchangeably.Performed By: #### 95604-5, 2276-02 #### [facility] CLIA [id number] [address] [place] [address] [place] AMERICALACTATE DEHYDROGENASEon 65-13-9391HAW [Catalytic activity/Vol]236 U/YLppp052 - 214 U/LCKindred Healthcare LDH SerPl-cCncon 32-26-7869DLF [Catalytic activity/Vol]236 U/MIfyb394-900 [facility] on above:Order Comment: Specimen Type: BLOOD SPECIMEN [facility] Address: [address] [place], [place] [address]Performed By: #### 29092-4, 2276-02 #### [facility] CLIA [id number] [address] [place] [address] [place] AMERICALDH [Catalytic activity/Vol] on 28-00-5897Wbdlygdchorwcu and review of laboratory resultsAbnormalCleveland [facility] GlenbeighNo Panel Informationon 28-61-7528Spoddhtof Clinic Interpretation and review of laboratory resultsNormalCleveland [facility] System GlenbeighInterpretation and review of laboratory resultsNormalCcrystal clinic orthopedic centerand Clinic Witter ClinicInterpretation and review of laboratory resultsAbnormalCOhioHealth Berger HospitalPROTEIN ELECTROPHORESIS SERUM (P)on 02-52-4574Zvgbvwl [Mass/Vol]3.85 g/dLNormal3.43-5.41[facility] on above: Order Comment: Specimen Type: BLOOD SPECIMENOrdering Facility: [facility] Address:[address] [place], [place] [address]Performed By: #### [id number] ####[facility] LABCLIA [id number] [place] [address] [place] AMERICAAlpha 1 globulin Elph [Mass/Vol]0.37 g/dLNormal0.18-0.43[facility] on above: Order Comment: Specimen Type: BLOOD SPECIMENOrdering Facility: [facility] Address:[address] [place], [place] [address]Performed By: #### [id number] ####[facility] LABCLIA [id number] [place] [address] [place] 2 globulin Elph [Mass/Vol]0.78 g/dLNormal0.42-0.98[facility] on above: Order Comment: Specimen Type: BLOOD SPECIMENOrdering Facility: [facility] Address:[address] [place], [place] [address]Performed By: #### [id number] ####[facility] LABCLIA [id number] [place] [address] [place] AMER[place]ABeta globulin Elph [Mass/Vol]0.67 g/dLNormal0.61-1.17[facility] on above: Order Comment: Specimen Type: BLOOD SPECIMENOrdering Facility: [facility] Address:[address] [place], [place] [address]Performed By: #### [id number] ####[facility] LABCLIA [id number] [place] [address] [place] OF AMERICAGamma globulin Elph [Mass/Vol]0.54 g/dLNormal0.53-1.51[facility] on above: Order Comment: Specimen Type: BLOOD SPECIMENOrdering Facility: [facility] Address:[address] [place], [place] [address]Performed By: #### [id number] ####[facility] LABIA [id number] [place] [address] [place] OF AMERICAM-PROTEIN LOCATION NormalCleveland Clinic [facility] on above:Order Comment: Specimen Type: BLOOD SPECIMENOrdering Facility: [facility] Address:[address] [place], [place] [address]Result Comment: Not Applicable.Performed By: #### [id number] ####[facility] LABIA [id number] [place] [address] [place] OF AMERICAProtein Fractions [Interp]No definitive M protein is identified on protein electrophoresis.Normal No definitive M protein is identified on protein electrophoresis.[facility] on above:Order Comment: Specimen Type: BLOOD SPECIMENOrdering Facility: [facility] Address:[address] [place], [place] [address]Performed By: #### [id number] ####[facility] LABIA [id number] [place] [address] [place] AMERICAProtein.monoclonal Elph [Mass/Vol]0.00 g/dLNormal<=0.00[facility] on above:Order Comment: Specimen Type: BLOOD SPECIMENOrdering Facility: [facility] Address:[address] [place] [address]Jwnwivgiy By: #### [id number] ####[facility] LABCLIA [id number] [place] [id number] [facility] SPE STAFF REVIEWReviewed by Mo Gomes MD, Ph.D ([id number])[facility] on above:Order Comment: Specimen Type: BLOOD SPECIMENOrdering Facility: [facility] Address:[address] [place], [place] [address]Performed By: #### [id number] ####[facility] LABCLIA [id number] [place] [id number] [facility] AMERICAProt SerPl-mCncon 07-62-1931Gqitzzx [Mass/Vol]6.2 g/dLLow6.3-8.0 [facility] on above:Order Comment: Specimen Type: BLOOD SPECIMENOrdering Facility: [facility] Address:[address] [place], [place] [address]Performed By: #### 2885-2, 2132-9, 2284-8 ####[facility] LABIA [id number] [address]ETRETICULOCYTE COUNTon 96-23-0596Tdtohpjoksqyr (Bld) [#/Vol]0.154 10*3/uLHighUniversity Hospitals Elyria Medical CenterRetflagstaff medical center #on 07-02-3547Tmheymcuyokjc (Bld) [#/Vol]0.91967 10*3/uLHigh0.018-0.100[facility] on above:Order Comment: Specimen Type: BLOOD SPECIMENOrdering Facility: [facility] Address:[address] [place], [place] [address]Performed By: #### 62309-5, 72816-2 ####[facility] LABCLIA [id number] [place], [place] [address]Kltmslfyihedz (Bld) [#/Vol]on 04-18-2025 Reticulocytes/100 RBC (Bld)4.1 %High0.4 - 2.0 %[facility] Elyria Medical CenterReticulocytes/100 RBC (Bld)4.1 %High0.4-2.0[facility] on above:Order Comment: Specimen Type: BLOOD SPECIMENOrdering Facility: [facility] Address:[address] [place], [place] [address]Performed By: #### 82392- 8, 22923-6 ####[facility] LABCLIA [id number] [place], [place] [address]OGJHULK STIMULATING HORMONEon 94-83-6395KLV Qn1.25 m[IU]/LC[facility] Qnon 85-03-2090Wrkekzktisfbkc and review of laboratory resultsNormalCMercy Hospital SerPl-aCncon 66-53-0329VMD Qn1.250 m[IU]/LNormal0.270-4.200[facility] on above:Order Comment: Specimen Type: BLOOD SPECIMENOrdering Facility: [facility] Address:[address] [place], [place] [address]Performed By: #### 32856- 8, 2276-4, 3016-3, 4542-7 ####[facility] LABCLIA [id number] [place] [address] [place] OF AMERICAVITAMIN B12on 75-01-0388Mjufkwoaz (Vitamin B12) [Mass/Vol]854 pg/mL232 - 1245 pg/mL [facility]lyria Medical CenterVit B12 SerPl-mCncon 63-68-6723Udfytrwfp (Vitamin B12) [Mass/Vol]854 pg/yJOfiyan664-5969YxbkyyoaqParkview Health on above: Order Comment: Specimen Type: BLOOD SPECIMENOrdering Facility: [facility] Address:[address] [place], [place] [address]Performed By: #### 2885- 2, 2132-9, 2284-8 ####[facility] LABCLIA [id number] [place] [address] [place] AMERICACB W Auto Differential panel (Bld)on 39-38-1064Eufclgixr (Bld) [#/Vol]10*3/uLNormal<0.11 [facility] on above:Order Comment: Specimen Type: BLOOD SPECIMEN [facility] Address: [address] [place], [place] [address]Performed By: #### 39743-9, 2275- #### [facility] CLIA [id number] [address] [place] [address] [place] AMERICABasophils/100 WBC (Bld)0.2 % [facility] on above:Order Comment: Specimen Type: BLOOD SPECIMEN [facility] Address: [address] [place], [place] [address]Performed By: #### 49196-8, 2276-02 #### [facility] CLIA [id number] [address] [place] [address] [place] AMERICADifferential cell count method Nom (Bld)AutoNormalCParkview Health on above:Order Comment: Specimen Type: BLOOD SPECIMEN [facility] Address: [address] [place], [place] [address]Performed By: #### 67478-9, 2276-02 #### [facility] CLIA [id number] [address] [place] [address] [place] AMERICAEosinophils (Bld) [#/Vol] 0.12 10*3/uLNormal<0.46[facility] on above:Order Comment: Specimen Type: BLOOD SPECIMEN [facility] Address: [address] [place], [place] [address]Performed By: #### 87673-0, 2276-02 #### [facility] CLIA [id number] [address] [place] [address] [place] AMERICAEosinophils/100 WBC (Bld)2.3 %[facility] on above:Order Comment: Specimen Type: BLOOD SPECIMEN [facility] Address: [address] [place], [place] [address]Performed By: #### 81229-1, 2275-4 #### [facility] CLIA [id number] [address] [place] [address] [place] AMERICAErythrocyte distribution width (RBC) [Ratio]16.1 %High11.5-15.0[facility] on above:Order Comment: Specimen Type: BLOOD SPECIMEN [facility] Address: [address] [place], [place] [address]Performed By: #### 69732-3, 4 #### [facility] CLIA [id number] [address] [place] [address] [place] AMERICAHematocrit (Bld) [Volume fraction]30.4 %Low36.0-46.0[facility] on above:Order Comment: Specimen Type: BLOOD SPECIMEN [facility] Address: [address] [place], [place] [address]Performed By: #### 65953-8, 4 #### [facility] CLIA [id number] [address] [place] [address] [place] AMERICAHemoglobin (Bld) [Mass/Vol] 10.2 g/dLLow11.5-15.5CParkview Health on above:Order Comment: Specimen Type: BLOOD SPECIMEN [facility] Address: [address] [place], [place] [address]Performed By: #### 74258-0, 2275-4 #### [facility] CLIA [id number] [address] [place] [address] [place] AMERICAImmature granulocytes (Bld) [#/Vol]10*3/uLNormal<0.10[facility] on above:Order Comment: Specimen Type: BLOOD SPECIMEN [facility] Address: [address] [place], [place] [address]Performed By: #### 02167-4, 2276-02 #### [facility] CLIA [id number] [address] [place] [address] [place] AMERICAImmature granulocytes/100 WBC (Bld)0.4 %NormalC[facility] Clinic [facility] Hospital on above:Order Comment: Specimen Type: BLOOD SPECIMEN [facility] Address: [address] [place], [place] [address]Performed By: #### 71676-3, 2276-02 #### [facility] CLIA [id number] [address] [place] [address] [place] OF AMERICALymphocytes (Bld) [#/Vol] 1.31 10*3/uLNormal1.00-4.00[facility] on above:Order Comment: Specimen Type: BLOOD SPECIMEN [facility] Address: [address] [place], [place] [address]Performed By: #### 51775-2, 2276-02 #### [facility] CLIA [id number] [address] [place] [address] [place] AMERICALymphocytes/100 WBC (Bld) 24.8 %NormalC[facility] Clinic [facility] Hospital on above:Order Comment: Specimen Type: BLOOD SPECIMEN [facility] Address: [address] [place], [place] [address]Performed By: #### 95296-6, 2276-02 #### [facility] CLIA [id number] [address] [place] [address] [place] AMERICAMCH (RBC) [Entitic mass]29.6 kqJgfqob56.0-34.0[facility] on above:Order Comment: Specimen Type: BLOOD SPECIMEN [facility] Address: [address] [place], [place] [address]Performed By: #### 44987-6, 2276-02 #### [facility] CLIA [id number] [address] [place], [place] [address] [place] AMERICAMCHC (RBC) [Mass/Vol]33.6 g/kSTiqsqo34.5-36.0[facility] on above:Order Comment: Specimen Type: BLOOD SPECIMEN [facility] Address: [address] [place], [place] [address]Performed By: #### 16078-2, 2276-02 #### [facility] CLIA [id number] [address] [place] [address] [place] AMERICAMCV (RBC) [Entitic vol]88.1 pUEynulu83.0-100.0[facility] on above:Order Comment: Specimen Type: BLOOD SPECIMEN [facility] Address: [address] [place], [place] [address]Performed By: #### 09245-6, 2276-02 #### [facility] CLIA [id number] [address] [place] [address] [place] AMERICAMonocytes (Bld) [#/Vol]0.28 10*3/uLNormal<0.87[facility] on above:Order Comment: Specimen Type: BLOOD SPECIMEN [facility] Address: [address] [place], [place] [address]Performed By: #### 10282-5, 2276-02 #### [facility] CLIA [id number] [address] [place] [address] [place] AMERICAMonocytes/100 WBC (Bld)5.3 % NormalCleveland Clinic [facility] Hospital on above:Order Comment: Specimen Type: BLOOD SPECIMEN [facility] Address: [address] [place], [place] [address]Performed By: #### 13650-1, 2276-02 #### [facility] CLIA [id number] [address] [place] [address] [place] AMERICANeutrophils (Bld) [#/Vol] 3.54 10*3/uLNormal1.45-7.50[facility] on above:Order Comment: Specimen Type: BLOOD SPECIMEN [facility] Address: [address] [place], [place] [address]Performed By: #### 91901-6, 6-4 #### [facility] CLIA [id number] [address] [place] [address] [place] AMERICANeutrophils/100 WBC (Bld) 67.0 %NormalCleveland Clinic [facility] Hospital on above:Order Comment: Specimen Type: BLOOD SPECIMEN [facility] Address: [address] [place], [place] [address]Performed By: #### 19110-5, 2275-4 #### [facility] CLIA [id number] [address] [place] [address] [place] AMERICANucleated RBC (Bld) [#/Vol] 10*3/uLNormal<0.01[facility] on above:Order Comment: Specimen Type: BLOOD SPECIMEN [facility] Address: [address] [place], [place] [address]Performed By: #### 29597-3, 2275-4 #### [facility] CLIA [id number] [address] [place] [address] [place] AMERICANucleated RBC/100 WBC (Bld) [Ratio]0.0 /100 WBCNormalCParkview Health on above:Order Comment: Specimen Type: BLOOD SPECIMEN [facility] Address: [address] [place], [place] [address]Performed By: #### 99378-7, 2275-4 #### [facility] CLIA [id number] [address] [place] [address] [place] AMERICAPlatelet mean volume (Bld) [Entitic vol]9.1 fLNormal9.0-12.7CParkview Health on above: Order Comment: Specimen Type: BLOOD SPECIMEN [facility] Address: [address] [place], [place] [address]Performed By: #### 51286-7, 6-4 #### [facility] CLIA [id number] [address] [place] [address] OF AMERICAPlatelets (Bld) [#/Vol]136 10*3/rQYwb458-957GbytxmoaxC[facility] Clinic [facility] on above:Order Comment: Specimen Type: BLOOD SPECIMEN [facility] Address: [address] [place], [place] [address]Performed By: #### 30016-6, 2275-4 #### [facility] CLIA [id number] [address] [place], [place] [address]RBC (Bld) [#/Vol]3.45 10*6/uLLow3.90-5.20[facility] on above:Order Comment: Specimen Type: BLOOD SPECIMEN [facility] Address: [address] [place], [place] [address]Performed By: #### 10401-5, 2275-4 #### [facility] CLIA [id number] [address] [place], [place] [address]WBC (Bld) [#/Vol]5.28 10*3/uLNormal3.70-11.00[facility] on above:Order Comment: Specimen Type: BLOOD SPECIMEN [facility] Address: [address] [place], [place] [address]Performed By: #### 48464-3, 2275-4 #### [facility] CLIA [id number] [address] [place] [address] [place] AMERICACNOVSPon 68-09-2822UWIDBL Visit (SP) Office (HEMASA) ANH TEJEDA ([id number]) 1950 F Date Time Provider Department 04/07/25 2:00 PM DAKSHA BRIDGES During your visit today, we recorded the following information about you: Temperature Pulse Respiration Blood pressure 97 degrees 74/minute 18/minute 130/69 Weight Height 101.1 kg 1.58 m Daksha Bridges PA-C 04/07/2025 2:52 PM Signed Hematology Progress Note PATIENT NAME: Anh Tejeda CLINIC NO.: [id number] ATTENDING PHYSICIAN: Henry Walker MD DATE OF [...] for prolonged bleeding, bruising (more content not included)...NormalProtestant HospitalComprehensive metabolic 2000 panelon 44-13-6768Phlklvp [Mass/Vol]4.0 g/dLNormal3.9-4.9CParkview Health on above:Order Comment: Specimen Type: BLOOD SPECIMENOrdering Facility: [facility] Address:[address] [place], [place] [address]Performed By: #### 91950-7 ####[facility] LABCLIA [id number] [place], [place] [address]NXO [Catalytic activity/Vol]141 U/PBaja51-314FhfjfpgwoC[facility] Clinic [facility] on above:Order Comment: Specimen Type: BLOOD SPECIMENOrdering Facility: [facility] Address:[address] [place], [place] [address]Performed By: #### 78018-7 ####[facility] LABCLIA [id number] [place] [address] ALT [Catalytic activity/Vol]15 U/LNormal7-38[facility] on above:Order Comment: Specimen Type: BLOOD SPECIMENOrdering Facility: [facility] Address:[address] [place], [place] [address]Performed By: #### 60378-0 ####[facility]ITALZANDR[facility] LABCLIA [id number] SONIA GARCIABANNER MD [place] [address]Feuwl gap [Moles/Vol]10 mmol/LNormal8-15[facility] on above:Order Comment: Specimen Type: BLOOD SPECIMENOrdering Facility: [facility] Address:[address] [place], [place] [address]Performed By: #### 37506-8 ####[facility] LABCLIA [id number] SONIA GONZALESBANNER MD [facility] [place], [place] [address]NVM [Catalytic activity/Vol]17 U/NLzjtmv47-31OsdmiaeakCleveland Clinic [facility] Hospital on above:Order Comment: Specimen Type: BLOOD SPECIMENOrdering Facility: [facility] Address:[address] [place], [place] [address]Performed By: #### 90604-6 ####[facility] LABCLIA [id number] [facility] [place] [address] Bilirubin [Mass/Vol]0.7 mg/dLNormal0.2-1.3CParkview Health on above:Order Comment: Specimen Type: BLOOD SPECIMENOrdering Facility: [facility] Address:[address] [place], [place] [address]Performed By: #### 20898-8 ####[facility] LABCLIA [id number] [place] [address]Rmbqecz [Mass/Vol]9.3 mg/dLNormal8.5-10.2CParkview Health on above:Order Comment: Specimen Type: BLOOD SPECIMENOrdering Facility: [facility] Address:[address] [place], [place] [address]Performed By: #### 42665-8 ####[facility] LABCLIA [id number] ALEX JANETBANNER MD [facility] [place], [place] [address]Kvyfedez [Moles/Vol]105 mmol/XWijgmn13-367TjurufkpkC[facility] Clinic [facility] on above: Order Comment: Specimen Type: BLOOD SPECIMENOrdering Facility: [facility] Address:[address] [place], [place] [address]Performed By: #### 41212- 8 ####[facility] LABCLIA [id number] [place], [place] [address]ZF2 [Moles/Vol]26 mmol/OOvavjf80-23PzgdgonpeCleveland Clinic [facility] Hospital on above:Order Comment: Specimen Type: BLOOD SPECIMENOrdering Facility: [facility] Address:[address] [place], [place] [address]Performed By: #### 34753-5 ####[facility] LABCLIA [id number] [place], [place] [address]Lhypkkikyc [Mass/Vol]1.16 mg/dL High0.58-0.96[facility] on above:Order Comment: Specimen Type: BLOOD SPECIMENOrdering Facility: [facility] Address:[address] [place], [place] [address]Performed By: #### 33879-4 ####[facility] LABIA [id number] [place] [address] Creatinine and Glomerular filtration rate.predicted panel (S/P/Bld)49 mL/min/1.73m???Low>=60[facility] on above:Order Comment: Specimen Type: BLOOD SPECIMENOrdering Facility: [facility] Address:[address] [place], [place] [address]Result Comment: Estimated Glomerular Filtration Rate (eGFR) is calculated using the 2020 CKD-EPI creatinine equation. This equation utilizes serum creatinine, sex, and age as parameters. The creatinine assay has traceable calibration to isotope dilution-mass spectrometry. Refer to KDIGO guidelines for clinical interpretation. In patients with unstable renal function, e.g. those with acute kidney injury, the eGFR may not accurately reflect actual GFR.Performed By: #### 71342-0 ####[facility] LABIA [id number] [place] [address] Glucose [Mass/Vol]186 mg/rWIpjj90-18EnmllkjzwCleveland Clinic [facility]mount Hospital on above: Order Comment: Specimen Type: BLOOD SPECIMENOrdering Facility: [facility] Address:[address] [place], [place] [address]Result Comment: The [place] Diabetes Association (ADA) provides guidance for cutoff [...] Standards of Medical Care in Diabetes 2016, [place] [employer] Association. Diabetes Care. 2016.39(Suppl 1).Performed By: #### 85377-7 ####[facility] LABCLIA [id number] [place], [place] [address]Kwbowuyea [Moles/Vol]5.0 mmol/LNormal3.7-5.1CParkview Health on above:Order Comment: Specimen Type: BLOOD SPECIMENOrdering Facility: [facility] Address:[address] [place], [place] [address]Performed By: #### 84614-3 ####[facility] LABCLIA [id number] [place], [place] [address]Upnphuy [Mass/Vol]6.0 g/dLLow6.3-8.0[facility] on above:Order Comment: Specimen Type: BLOOD SPECIMENOrdering Facility: [facility] Address:[address] [place], [place] [address]Performed By: #### 23122- 8 ####[facility] LABCLIA [id number] [place], [place] [address]Bqdasx [Moles/Vol]141 mmol/TJoloqe478-579WfvljjtsdCleveland Clinic [facility] on above:Order Comment: Specimen Type: BLOOD SPECIMENOrdering Facility: [facility] Address:[address] [place], [place] [address]Performed By: #### 94718-4 ####[facility]ITALZANDR[facility] LABCLIA [id number] [place], [place] [address]Rqoy nitrogen [Mass/Vol]41 mg/dLHigh7-21[facility] on above:Order Comment: Specimen Type: BLOOD SPECIMENOrdering Facility: [facility] Address:[address] [place], [place] [address]Performed By: #### 62729-3 ####[facility] LABCLIA [id number] [place] [address] Ferritin SerPl-mCncon 63-71-1860Ulddtayq [Mass/Vol]363.0 ng/wFTouj17.7-205.1 [facility] on above:Order Comment: Specimen Type: BLOOD SPECIMENOrdering Facility: [facility] Address:[address] [place], [place] [address]Performed By: #### 2276-4, 99170-8 ####[facility] LABCLIA [id number] [place] [address] [place] OF AMERICAIron and Iron binding capacity panelon 59-80-3995Uhfz [Mass/Vol]81 ug/mMLqkyra90-243KyiegjzhpC[facility] Clinic [facility] on above:Order Comment: Specimen Type: BLOOD SPECIMENOrdering Facility: [facility] Address:[address] [place], [place] [address]Performed By: #### 2276- 4, 31158-4 ####[facility] LABCLIA [id number] [place] [address] [place] AMERICAIron binding capacity [Mass/Vol]342 ug/cHJalery650-398XvkgalbvgC[facility] Clinic [facility] on above:Order Comment: Specimen Type: BLOOD SPECIMENOrdering Facility: [facility] Address:[address] [place], [place] [address]Performed By: #### 2276- 4, 82132-1 ####[facility] LABCLIA [id number] [place] [address] [place] AMERICAIron/TIBC [Molar ratio] 23.7 %Aippva44.0-57.0[facility] on above:Order Comment: Specimen Type: BLOOD SPECIMENOrdering Facility: [facility] Address:[address] [place], [place] [address]Performed By: #### 2276-4, 86434-4 ####[facility] LABCLIA [id number] [address] STATES OF [facility] HOSPITALRetics #on 04-07-2025 Reticulocytes (Bld) [#/Vol]0.83727 10*3/uLHigh0.018-0.100[facility] on above:Order Comment: Specimen Type: BLOOD SPECIMEN [facility] Address: [address] [place], [place] [address]Performed By: #### 45878-3, 2276-4 #### [facility] CLIA [id number] [address] [place] [address] STATES OF AMERICAReticulocytes (Bld) [#/Vol] on 63-00-3693Rrxhcaxhyexrl/100 RBC (Bld)3.8 %High0.4-2.0[facility] on above:Order Comment: Specimen Type: BLOOD SPECIMEN [facility] Address: [address] [place], [place] [address]Performed By: #### 49126-7, 2276-4 #### [facility] CLIA [id number] [address] [place] [address] [place] AMERICAAmbulatory Visit Summaryon [id number] Visit SummaryAmbulatory Visit Summary ANH TEJEDA :1950 [...] you for choosing us for your care. [facility]/Clinic Noteon [id number] Office/Clinic NoteGastroenterology Office/Clinic Note Chief Complaint Review [...] 84.5 fL (03/27/25) Chloride: 104 mmol/L (03/27/25) [place] Absolute: 0.3 E9/L (03/27/25) CO2: 28 mmol/L (03/27/25) [place] Auto: 6.4 % (03/27/25) Creatinine: 1.2 mg/dL [...] IgG: <2 (01/28/24) Histor (more content not included)...NormalOhiohealth Marion General HospitalComment on above:Result Comment: Electronically Signed By: Shanel DONG, Verónica Guadalupe\Date and Time Signed: 03/30/2510:12 EDTAFPon [id number].tumor marker [Mass/Vol] ng/mLInvalid Interpretation Code0.0-9.2FChillicothe VA Medical CenterComment on above:Result Comment: [facility] [employer] Electrochemiluminescence Immunoassay (ECLIA) Values obtained with different assay methods or kits cannot be used interchangeably. Results cannot be interpreted as absolute evidence of the presence or absence of malignant disease. This test is not interpretable in females. Performed at: [facility] [address] [id number] PhD Isma BanksPerformed By: #### [id number] #### [facility] [address] [place], [place] [address]ZIK w/ Auto Diffon 44-81-0968Qewtovlyf/100 WBC (Bld)0.4 %Normal 0.0-2.0[facility] HospitalComment on above:Performed By: #### [id number] #### [facility] [address], [place] [address]Rvziixedh/Leukocytes Auto (Bld) [Pure # fraction]0.0 E9/LNormal 0.0-0.2FChillicothe VA Medical CenterComment on above:Performed By: #### [id number] #### [facility] [address], [place] [address]Ywqtxrgoknv (Bld) [#/Vol]0.1 E9/LNormal0.0-0.5FChillicothe VA Medical CenterComment on above:Performed By: #### [id number] #### [facility] [address], [place] [address]Cjozvauewrz/100 WBC (Bld)1.9 %Normal0.0-8.0[facility] HospitalComment on above:Performed By: #### [id number] #### [facility] [address] [place] [address]Kqnlbdijsud distribution width (RBC) [Ratio]16.3 %High10.9-14.2 [facility] HospitalComment on above:Performed By: #### [id number] #### [facility] [address] [place] [address] 34165Kqgmcfrozn (Bld) [Volume fraction]32.7 %Low34.0-46.0[facility] HospitalComment on above:Performed By: #### [id number] #### [facility] [address] [place] [address] 18092Btpkjvnsnq (Bld) [Mass/Vol]11.4 g/dLLow12.0-16.0[facility] HospitalComment on above:Performed By: #### [id number] #### [facility] [address] [place] [address] 18997Nkcfvmgaxxl (Bld) [#/Vol]1.4 E9/LNormal1.0-4.0[facility] HospitalComment on above:Performed By: #### [id number] #### [facility] [address] [place] [address]Yzhpzbmekpb/100 WBC (Bld)28.3 %Rzsquf67.0-50.0[facility] HospitalComment on above:Performed By: #### [id number] #### [facility] [address] [place] [address] 41856FIO (RBC) [Entitic mass]29.5 piXtfprt92.0-34.0[facility] HospitalComment on above:Performed By: #### [id number] #### [facility] [address] [place] [address] 18269VXQI (RBC) [Mass/Vol]34.9 g/eQQzenhe51.4-36.0[facility] HospitalComment on above:Performed By: #### [id number] #### [facility] [address] [place] [address] 55509WVJ (RBC) [Entitic vol]84.5 vOLenpha41.0-100.0[facility] HospitalComment on above:Performed By: #### [id number] #### [facility] [address] [place] [address] 23871Wbqditwnb (Bld) [#/Vol]0.3 E9/LNormal0.2-1.0[facility] HospitalComment on above:Performed By: #### [id number] #### [facility] [address] [place] [address] 14770Lhruybwdtwe (Bld) [#/Vol]3.1 E9/LNormal2.0-7.5FChillicothe VA Medical CenterComment on above:Performed By: #### [id number] #### [facility] [address] [place] [address] 48526Cibmnvhautg/100 WBC (Bld)63.0 %Socbjr76.0-75.0[facility] HospitalComment on above:Performed By: #### [id number] #### [facility] [address] [place] [address]84[address]Kaxxxrba mean volume (Bld) [Entitic vol]7.2 fLNormal6.4-10.8 [facility] HospitalComment on above:Performed By: #### [id number] #### [facility] [address] [place] [address] 33395Iasqygeom (Bld) [#/Vol]139.0 E9/XXyo494.0-500.0[facility] HospitalComment on above:Performed By: #### [id number] #### [facility] [address] [place] [address] 27695AIC (Bld) [#/Vol]3.9 E12/LLow4.3-5.9[facility] Comment on above:Performed By: #### [id number] #### [facility] [address], [place] [address]POQ corrected for nucl RBC Auto (Bld) [#/Vol]4.9 E9/LNormal 4.0-11.0[facility] HospitalComment on above:Performed By: #### [id number] #### [facility] [address], [place] [address]NDJLLRVOVKttlzsy By: SYSTEM SYSTEM on 45-85-7161Qmzzukz [Mass/Vol]4.0 g/dLNormal3.3 - 5.0 gm/dLRemisol ChemAlbumin/Globulin [Mass ratio] 1.7 {ratio}Normal1.1 - 2.2Remisol ChemALP [Catalytic activity/Vol]133 [iU]/dHigh 21 - 98 Int._Unit/LRemisol ChemALT No additional P-5'-P [Catalytic activity/Vol] 20 [iU]/dNormal6 - 46 Int._Unit/LRemisol ChemAnion gap [Moles/Vol]12 mmol/L Normal6 - 16 mEq/LRemisol ChemAST [Catalytic activity/Vol]17 [iU]/dNormal5 - 43 Int._Unit/LRemisol ChemBilirubin [Mass/Vol]0.6 mg/dLNormal0.0 - 1.1 mg/dLRemisol ChemCalcium [Mass/Vol]9.0 mg/dLNormal8.9 - 11.1 mg/dLRemisol ChemChloride [Moles/Vol]104 mmol/SIutvsq655 - 111 mmol/LRemisol ChemCO2 [Moles/Vol]28 mmol/L Svzvzp91 - 31 mmol/LRemisol ChemCreatinine [Mass/Vol]1.2 mg/dLNormal0.5 - 1.3 mg/dLRemisol AczyrWUU93 mL/min/1.73 m2Low>=59mL/min/1.73 o0Fkrfucq ChemGlobulin (S) [Mass/Vol]2.3 g/dLNormal1.4 - 4.0 gm/dLRemisol ChemGlucose [Mass/Vol]155 mg/jWRdhnar41 - 199 mg/dLRemisol ChemPotassium [Moles/Vol]4.3 mmol/LNormal3.5 - 5.3 mmol/LRemisol ChemProtein [Mass/Vol]6.3 g/dLNormal6.0 - 7.8 gm/dLRemisol ChemSodium [Moles/Vol]140 mmol/TTaeuyp138 - 145 mmol/LRemisol ChemUrea nitrogen [Mass/Vol]36 mg/dLHigh5 - 21 mg/dLRemisol ChemUrea nitrogen/Creatinine [Mass ratio]30 mg/qoUcba22 - 20Remisol ChemCMPon 29-44-6568Mawethi [Mass/Vol]4.0 g/dL Normal3.3-5.0[facility] HospitalComment on above:Performed By: #### [id number] #### [facility] [address] [place] [address]Ijljegr/Globulin (S) [Mass conc ratio]1.5Rvyucl9.1-2.2FChillicothe VA Medical CenterComment on above:Performed By: #### [id number] #### [facility] [address] [place] [address] 18060IES [Catalytic activity/Vol]133 Int._Unit/GAzcv07-31JuuufxOhiohealth Marion General HospitalComment on above:Performed By: #### [id number] #### [facility] [address] [place] [address] 85681NUY No additional P-5'-P [Catalytic activity/Vol]20 Int._Unit/L Normal6-46[facility] HospitalComment on above:Performed By: #### [id number] #### [facility] [address] [place] [address] 30276Brfsb gap [Moles/Vol]12 mmol/LNormal6-16[facility] HospitalComment on above:Performed By: #### [id number] #### [facility] [address] [place] [address] 620[address]JYN [Catalytic activity/Vol]17 Int._Unit/LNormal5-43[facility] HospitalComment on above:Performed By: #### [id number] #### [facility] [address] [place] [address] 492[address]Yrixrskls [Mass/Vol]0.6 mg/dLNormal0.0-1.1FChillicothe VA Medical CenterComment on above:Performed By: #### [id number] #### [facility] [address], [place] [address]Qoqnzgv [Mass/Vol]9.0 mg/dLNormal8.9-11.1FChillicothe VA Medical CenterComment on above:Performed By: #### [id number] #### [facility] [address], [place] [address]Wvqinwvv [Moles/Vol]104 mmol/REuqxlz157-481SsbaocOhiohealth Marion General HospitalComment on above:Performed By: #### [id number] #### [facility] [address], [place] [address]PQ1 [Moles/Vol]28 mmol/UCppkhf49-40SvtunxOhiohealth Marion General Hospital Comment on above:Performed By: #### [id number] #### [facility] [address], [place] [address]Xdnnyohhmc [Mass/Vol]1.2 mg/dLNormal0.5-1.3FChillicothe VA Medical CenterComment on above:Performed By: #### [id number] #### [facility] [address], [place] [address]Ljrwxxri (S) [Mass/Vol]2.3 g/dLNormal1.4-4.0[facility] HospitalComment on above:Performed By: #### [id number] #### [facility] [address], [place] [address]Bsxsbza [Mass/Vol]155 mg/kNBtysoo45-609IuqpejOhiohealth Marion General HospitalComment on above:Performed By: #### [id number] #### [facility] [address], [place] [address]Clydiwujp [Moles/Vol]4.3 mmol/LNormal3.5-5.3FChillicothe VA Medical CenterComment on above:Performed By: #### [id number] #### [facility] [address], [place] [address]Ddblkob [Mass/Vol]6.3 g/dLNormal6.0-7.8[facility] HospitalComment on above:Performed By: #### [id number] #### [facility] [address], [place] [address]Ctfnwi [Moles/Vol]140 mmol/SYdvlrr311-291UwdfhsOhiohealth Marion General HospitalComment on above:Performed By: #### [id number] #### [facility] [address], [place] [address]Hzls nitrogen [Mass/Vol]36 mg/dLHigh5-21[facility] HospitalComment on above:Performed By: #### [id number] #### [facility] [address], [place] [address]Zfly nitrogen/Creatinine [Mass ratio]30 No UtizqBhzg26-71NwcdrxOhiohealth Marion General HospitalComment on above:Performed By: #### [id number] #### [facility] [address], [place] [address]LKYKWSBPYYATkwnjxb By: Karlie Gomez on 93-06-5960uONH Coag (PPP) [Time]35.5 jXzlqpl50.1 - 36.5 second(s)[facility] Auto CoagComment on above: Interpretive Data: Parameter [...] the same coagulation reagent and instrumentation as [facility]. Currently there are no coagulation studies available worldwide for children to 14 days, andno normal ranges. Heparin therapeutic range (represented by Anti-Factor Xa activity of 0.2 - 0.4 U/mL) corresponds to PTT of 56.6 - 109.0 sec.INR Coag (PPP) [Relative time]1.05 {INR}Invalid Interpretation CodeCEDAR RIDGE [facility]OSPITAL [facility] [place] Auto CoagComment on above:Interpretive Data: INR results are specifically intended to assess patients stabilized on long-term Anticoagulation therapy suggested INR s Less Intensive Anticoagulation 2.0 3.0 Conventional Range 3.0 4.5PT Coag (PPP) [Time]11.8 sNormal9.4 - 12.5 second(s) [facility] Auto CoagComment on above:Interpretive Data: 15 days [...] the same coagulation reagent and instrumentation as [facility]. Currently there are no coagulation studies available worldwide for children to 14 days, andno normal ranges.HEMATOLOGYOrdered By: SYSTEM SYSTEM on 78-36-1676Mfpdcprzg/100 WBC (Bld)0.4 %Normal0.0 - 2.0 %Remisol HemeBasophils/Leukocytes [...] E9/LNormal1.0 - 4.0 E9/LRemisol HemeLymphocytes/100 WBC (Bld)28.3 %Dmyczy73.0 - 50.0 %Remisol HemeMCH (RBC) [Entitic mass]29.5 pg Truamn18.0 - 34.0 pgRemisol HemeMCHC (RBC) [Mass/Vol]34.9 g/fUHudxyc14.4 - 36.0 gm/dLRemisol HemeMCV (RBC) [Entitic vol]84.5 eHExlsfu76.0 - 100.0 fLRemisol Heme Monocytes (Bld) [#/Vol]0.3 E9/LNormal0.2 - 1.0 E9/LRemisol HemeMonocytes/100 WBC (Bld)6.4 %Normal4.0 - 14.0 %Remisol HemeNeutrophils (Bld) [#/Vol]3.1 E9/LNormal 2.0 - 7.5 E9/LRemisol HemeNeutrophils/100 WBC (Bld)63.0 %Yqdcgx63.0 - 75.0 % Remisol HemePlatelet mean volume (Bld) [Entitic vol]7.2 fLNormal6.4 - 10.8 fL Remisol HemePlatelets (Bld) [#/Vol]139.0 E9/LSrj413.0 - 500.0 E9/LRemisol Heme RBC (Bld) [#/Vol]3.9 E12/LLow4.3 - 5.9 E12/LRemisol HemeWBC corrected for nucl RBC Auto (Bld) [#/Vol]4.9 E9/LNormal4.0 - 11.0 E9/LRemisol HemePT & PTTon 14-44-9862rQHZ Coag (PPP) [Time]35.5 second(s)Hflxms43.1-36.5[facility] HospitalComment on above:Result Comment: Parameter 15 days - [...] the same coagulation reagent and instrumentation as [facility]. Currently there are no coagulation studies available worldwide for children to 14 days, andno normal ranges. Heparin therapeutic range (represented by Anti-Factor Xa activity of 0.2 - 0.4 U/mL) corresponds to PTT of 56.6 - 109.0 sec.Performed By: #### [id number] #### [facility] [address], [place] [address]MAK Coag (PPP) [Relative time]1.05 {INR}Invalid Interpretation CodeOhiohealth Marion General HospitalComment on above:Result Comment: INR results are specifically intended to assess patients stabilized on long-term Anticoagulation therapy suggested INR???s ???Less Intensive Anticoagulation??? 2.0 ??? 3.0 Conventional Range 3.0 ??? 4.5Performed By: #### [id number] #### [facility] [address], [place] [address]PX Coag (PPP) [Time]11.8 second(s)Normal9.4-12.5[facility] Pediatric HospitalComment on above:Result Comment: 15 days - 4 [...] the same coagulation reagent and instrumentation as [facility]. Currently there are no coagulation studies available worldwide for children to 14 days, andno normal ranges.Performed By: #### [id number] #### [facility] [address], [place] [address]nXZHdi 18-09-2178qSLI41 mL/min/1.73 m2Low>=59[facility] HospitalComment on above:Performed By: #### [id number] #### [facility] [address], [place] [address]Mfpunzmuxiw 76-56-5098AoysyoeriLhrtfyyjb From: Ellyn Copeland To: Lauren Day; Ellyn Copeland; Sent: 09/30/2024 13:06:26 EST Show up: 01/28/2025 14:06:00 EDT Subject: Ambulatory Reminder Due Date/Time: 02/28/2025 14:06:00 EDT Reminder Please call patient to schedule Fibroscan for 03-10 [facility]-6873DU lumbar spine wo [facility] [place] [id number] MRI Report Signed Patient: Anh Tejeda MR#: [id number] : 1950 Acct:[id number] Age/Sex: 74 / F ADM Date: 02/08/25 Loc: [facility] Room: Type: [facility] Attending Dr: Tessy Bruner MD Copies to: [...] severe facet arthropathy. Moderate central canal stenosis. Zwei-ji-tpqlmvjb bilateral neural foraminal narrowing. Mild crowding of [...] Narendra Guaman M.D.02/08/2025 2:29 PM Dictation Location: [place] [address] Transcribed By: [facility] 02/08/25 1429 Dictated By: Narendra Guaman MD 02/08/25 1337 Signed By: 02/08/25 1429[facility] Physician GroupVtgnetic resonance imaging reportOrdered By: Narendra Guaman on 43-54-2263Phybh reportSOUTHVIEW [facility] [place] [address] [place] [address] MRI Report Signed Patient: Anh Tejeda MR#: [id number] : 1950 Acct:[id number] Age/Sex: 74 / F ADM Date: 5 Loc: [facility] Room: Type: [facility] Attending Dr: Tessy Bruner MD Copies to: [...] disease L4-5 and L5-S1. Moderate disc disease I78-W1rzc mild disc disease at L3-L4. The conus [...] severe facet arthropathy. Moderate central canal stenosis. Vzsq-lx-cixkiawk bilateral neural foraminal narrowing. Mild crowding of [...] Narendra Guaman M.D.02/08/2025 2:29 PM Dictation Location: [place] [address] Transcribed By: MT 02/08/25 2142 Dictated By: Narendra Guaman MD 02/08/25 2615 Signed By: 02/08/25 2614 [facility] Work Phone: cb W Auto Differential panel (Bld)on 01-06-2025 Basophils (Bld) [#/Vol]10*3/uLNormal<0.11CParkview Health on above:Order Comment: Specimen Type: BLOOD SPECIMENOrdering Facility: [facility] Address:[address] [place], [place] [address]Performed By: #### 99684-4, 51558-5 ####[facility] LABCLIA [id number] [place], [place] [address]Sdaoaqmko/100 WBC (Bld)0.2 %NormalCleveland Clinic Marymount Hospital on above:Order Comment: Specimen Type: BLOOD SPECIMENOrdering Facility: [facility] Address:[address] [place], [place] [address]Performed By: #### 65300-4, 95599-1 ####[facility] LABCLIA [id number] [place] [address] Differential cell count method Nom (Bld)AutoNormalClevelFormerly [facility], 1928[facility] Comment on above:Order Comment: Specimen Type: BLOOD SPECIMENOrdering Facility: [facility] Address:[address] [place] [address] Performed By: #### 89504-0, 98193-7 ####[facility] LABCLIA [id number] [place], [place] [address]Ejhmeovhdtt (Bld) [#/Vol]0.11 10*3/uLNormal<0.46[facility] on above:Order Comment: Specimen Type: BLOOD SPECIMENOrdering Facility: [facility] Address:[address] [place], [place] [address]Performed By: #### 56708- 0, 35735-1 ####[facility] LABCLIA [id number] [place], [place] [address]Epvapuoamsc/100 WBC (Bld)2.0 %[facility] on above:Order Comment: Specimen Type: BLOOD SPECIMENOrdering Facility: [facility] Address:[address] [place], [place] [address]Performed By: #### 43578-4, 77576-5 ####[facility] LABIA [id number] [place] [address] Erythrocyte distribution width (RBC) [Ratio]15.8 %High11.5-15.0[facility] on above:Order Comment: Specimen Type: BLOOD SPECIMENOrdering Facility: [facility] Address:[address] [place], [place] [address]Performed By: #### 55310-5, 48635-6 ####[facility] LABIA [id number] [place], [place] [address]Ixldrqjadl (Bld) [Volume fraction]32.1 %Low36.0-46.0[facility] on above: Order Comment: Specimen Type: BLOOD SPECIMENOrdering Facility: [facility] Address:[address] [place], [place] [address]Performed By: #### 93513- 0, 81437-8 ####[facility] LABIA [id number] [place], [place] [address]Xwmrxqyosi (Bld) [Mass/Vol]11.0 g/dLLow11.5-15.5 [facility] on above:Order Comment: Specimen Type: BLOOD SPECIMENOrdering Facility: [facility] Address:[address] [place], [place] [address]Performed By: #### 32877-9, 79540-9 ####[facility] LABIA [id number] [place], [place] [address]Lyxqpbfd granulocytes (Bld) [#/Vol]10*3/uLNormal<0.10[facility] on above:Order Comment: Specimen Type: BLOOD SPECIMENOrdering Facility: [facility] Address:[address] [place] [address] Performed By: #### 83095-6, 86378-0 ####[facility] LABCLIA [id number] [place], [place] [address]Qqmcendb granulocytes/100 WBC (Bld)0.4 %NormalCleveland Clinic Marymount Hospital on above: Order Comment: Specimen Type: BLOOD SPECIMENOrdering Facility: [facility] Address:[address] [place], [place] [address]Performed By: #### 91193- 0, 41503-0 ####[facility] LABCLIA [id number] [place], [place] [address]Untataizcif (Bld) [#/Vol]1.45 10*3/uLNormal 1.00-4.00[facility] on above:Order Comment: Specimen Type: BLOOD SPECIMENOrdering Facility: [facility] Address:[address] [place], [place] [address]Performed By: #### 51425-6, 31353-3 ####[facility] LABCLIA [id number] [place], [place] [address]Cxpyaoddwaw/100 WBC (Bld)27.0 %NormalCleveland Clinic Marymount Hospital on above:Order Comment: Specimen Type: BLOOD SPECIMENOrdering Facility: [facility] Address:[address] [place], [place] [address]Performed By: #### 62265-1, 93769-7 ####[facility] LABCLIA [id number] [place], [place] [address]HAY (RBC) [Entitic mass]30.0 vrLtnjuy64.0-34.0[facility] on above:Order Comment: Specimen Type: BLOOD SPECIMENOrdering Facility: [facility] Address:[address] [place], [place] [address]Performed By: #### 40805- 0, 59185-9 ####[facility] LABCLIA [id number] [place], [place] [address]MLDO (RBC) [Mass/Vol]34.3 g/cZRfuuwe96.5-36.0 [facility] on above:Order Comment: Specimen Type: BLOOD SPECIMENOrdering Facility: [facility] Address:[address] [place], [place] [address]Performed By: #### 09612-3, 04070-8 ####[facility] LABCLIA [id number] [place], [place] [address]OKC (RBC) [Entitic vol]87.5 cHCxafll55.0-100.0[facility] on above:Order Comment: Specimen Type: BLOOD SPECIMENOrdering Facility: [facility] Address:[address] [place], [place] [address]Performed By: #### 27317-5, 90788-8 ####[facility] LABCLIA [id number] [place], [place] [address]Vdfdfibnr (Bld) [#/Vol]0.32 10*3/uLNormal <0.87[facility] on above:Order Comment: Specimen Type: BLOOD SPECIMENOrdering Facility: [facility] Address:[address] [place], [place] [address]Performed By: #### 68493-9, 82489-2 ####[facility] LABCLIA [id number] [place], [place] [address]Pduxcorcf/100 WBC (Bld)5.9 %NormalCleveland Clinic Marymount Hospital on above:Order Comment: Specimen Type: BLOOD SPECIMENOrdering Facility: [facility] Address:[address] [place], [place] [address]Performed By: #### 10367-7, 88289-0 ####[facility] LABCLIA [id number] [place], [place] [address]Iydaplcvccq (Bld) [#/Vol]3.47 10*3/uLNormal 1.45-7.50[facility] on above:Order Comment: Specimen Type: BLOOD SPECIMENOrdering Facility: [facility] Address:[address] [place], [place] [address]Performed By: #### 14945-0, 93391-5 ####[facility] LABCLIA [id number] [place], [place] [address]Jjngcpzkfmo/100 WBC (Bld)64.5 %NormalCleveland Clinic Marymount Hospital on above:Order Comment: Specimen Type: BLOOD SPECIMENOrdering Facility: [facility] Address:[address] [place], [place] [address]Performed By: #### 16101-6, 09832-3 ####[facility] LABIA [id number] [place], [place] [address]Acojrosjk RBC (Bld) [#/Vol]10*3/uLNormal<0.01[facility] on above:Order Comment: Specimen Type: BLOOD SPECIMENOrdering Facility: [facility] Address:[address] [place], [place] [address]Performed By: #### 33456- 0, 41964-6 ####[facility] LABIA [id number] [place], [place] [address]Azgkapssg RBC/100 WBC (Bld) [Ratio]0.0 /100 WBC NormalCleveland Clinic Marymount Hospital on above:Order Comment: Specimen Type: BLOOD SPECIMENOrdering Facility: [facility] Address:[address] [place], [place] [address]Performed By: #### 93347-8, 53896-6 ####[facility] LABCLIA [id number] [place], [place] [address]Tjnhlhgu mean volume (Bld) [Entitic vol]8.8 fLLow9.0-12.7CParkview Health on above:Order Comment: Specimen Type: BLOOD SPECIMENOrdering Facility: [facility] Address:[address] [place], [place] [address]Performed By: #### 44589-6, 88813-6 ####[facility] LABCLIA [id number] [place], [place] [address]Qjnpltchr (Bld) [#/Vol]117 10*3/qEHpq875-998HbfggkaphCleveland Clinic Marymount Hospital on above:Order Comment: Specimen Type: BLOOD SPECIMENOrdering Facility: [facility] Address:[address] [place], [place] [address]Performed By: #### 07074- 0, 97774-5 ####[facility] LABCLIA [id number] [place], [place] [address]QDD (Bld) [#/Vol]3.67 10*6/uLLow3.90-5.20[facility] on above:Order Comment: Specimen Type: BLOOD SPECIMENOrdering Facility: [facility] Address:[address] [place], [place] [address]Performed By: #### 56794-5, 86868-7 ####[facility]ENTERIA [id number] [place], [place] [address]QQF (Bld) [#/Vol]5.38 10*3/uLNormal3.70-11.00[facility] on above:Order Comment: Specimen Type: BLOOD SPECIMENOrdering Facility: [facility] Address:[address] [place], [place] [address]Performed By: #### 81448-2, 59470-5 ####[facility] LABIA [id number] [place], [place] [address]IVVZKVpd 98-59-6726IXCTVFXnkeg (SP) Office (HEMASA) ANH TEJEDA ([id number]) 1950 F Date Time Provider Department 01/06/25 2:30 PM DAKSHA BRIDGES During your visit today, we recorded the following information about you: Temperature Pulse Respiration Blood pressure 97.8 degrees 80/minute 18/minute 132/72 Weight 96.6 kg Daksha Bridges PA-C 01/06/2025 2:38 PM Signed Hematology Progress Note PATIENT NAME: Anh Tejeda CLINIC NO.: [id number] ATTENDING PHYSICIAN: Henry Walker MD DATE OF [...] murmurs, rubs, or ga (more content not included)...NormalProtestant HospitalComprehensive metabolic 2000 panelon 68-54-7897Qkhmhif [Mass/Vol]4.0 g/dLNormal3.9-4.9CCincinnati [facility] Comment on above:Order Comment: Specimen Type: BLOOD SPECIMENOrdering Facility: [facility] Address:[address] [place] [address] Performed By: #### 18143-4 ####[facility] LABCLIA [id number] [place] [address] [place] ALP [Catalytic activity/Vol]164 U/USjmg10-051IwfanywihCleveland Clinic Marymount Hospital on above:Order Comment: Specimen Type: BLOOD SPECIMENOrdering Facility: [facility] Address:[address] [place] [address] Performed By: #### 72336-3 ####[facility] LABCLIA [id number] [place] [address] [place] ALT [Catalytic activity/Vol]18 U/LNormal7-38[facility] Centerment on above:Order Comment: Specimen Type: BLOOD SPECIMENOrdering Facility: [facility] Address:[address] [place], [place] [address]Performed By: #### 91407-5 ####[facility] LABCLIA [id number] [place] [address] [place] AMERICAAnion gap [Moles/Vol] 11 mmol/LNormal8-15[facility] on above:Order Comment: Specimen Type: BLOOD SPECIMENOrdering Facility: [facility] Address:[address] [place], [place] [address]Performed By: #### 18962-0 ####[facility] LABCLIA [id number] [place] [address] [place] AMERICAAST [Catalytic activity/Vol]21 U/JCmajmv07-06JiiewzeybCleveland Clinic Marymount Hospital on above:Order Comment: Specimen Type: BLOOD SPECIMENOrdering Facility: [facility] Address:[address] [place], [place] [address]Performed By: #### 07326-6 ####[facility] LABCLIA [id number] [place] [address] [place] AMERICABilirubin [Mass/Vol]0.4 mg/dLNormal0.2-1.3CParkview Health on above:Order Comment: Specimen Type: BLOOD SPECIMENOrdering Facility: [facility] Address:[address] [place], [place] [address]Performed By: #### 09226-0 ####[facility] LABCLIA [id number] [place] [address] [place] AMERICACalcium [Mass/Vol]9.4 mg/dLNormal8.5-10.2CC[facility] Comment on above:Order Comment: Specimen Type: BLOOD SPECIMENOrdering Facility: [facility] Address:[address] [place] [address] Performed By: #### 86270-9 ####[facility] LABCLIA [id number] [place] [address] [place] Chloride [Moles/Vol]102 mmol/WYwyajy88-639ZeasbzyhrCleveland Clinic Marymount Hospital on above:Order Comment: Specimen Type: BLOOD SPECIMENOrdering Facility: [facility] Address:[address] [place], [place] [address]Performed By: #### 84989-9 ####[facility] LABCLIA [id number] [place] [id number] [place] AMERICACO2 [Moles/Vol]29 mmol/BQtnbgn11-44MtpnaabflCleveland Clinic Marymount Hospital on above:Order Comment: Specimen Type: BLOOD SPECIMENOrdering Facility: [facility] Address:[address] [place], [place] [address]Performed By: #### 85329-1 ####[facility] LABIA [id number] [place] [address] [place] AMERICACreatinine [Mass/Vol]1.27 mg/dL High0.58-0.96[facility] on above:Order Comment: Specimen Type: BLOOD SPECIMENOrdering Facility: [facility] Address:[address] [place], [place] [address]Performed By: #### 80064-0 ####[facility] LABIA [id number] [place] [address] [place] AMERICACreatinine and Glomerular filtration rate.predicted panel (S/P/Bld)44 mL/min/1.73m???Low>=60[facility] on above:Order Comment: Specimen Type: BLOOD SPECIMENOrdering Facility: [facility] Address:[address] [place], [place] [address]Result Comment: Estimated Glomerular Filtration Rate (eGFR) is [...] not accurately reflect actual GFR.Performed By: #### 23052-6 ####[facility] LABIA [id number] [place] [address] [place] AMERICAGlucose [Mass/Vol]216 mg/dLHigh 74-99[facility] on above:Order Comment: Specimen Type: BLOOD SPECIMENOrdering Facility: [facility] Address:[address] [place], [place] [address]Result Comment: The [place] Diabetes Association (ADA) provides guidance for cutoff [...] Standards of Medical Care in Diabetes 2016, [place] Diabetes Association. Diabetes Care. 2016.39(Suppl 1).Performed By: #### 18209-8 ####[facility] LABIA [id number] [place] [address] [place] AMERICAPotassium [Moles/Vol]4.0 mmol/L Normal3.7-5.1CParkview Health on above:Order Comment: Specimen Type: BLOOD SPECIMENOrdering Facility: [facility] Address:[address] [place], [place] [address]Performed By: #### 33619-9 ####[facility] [id number] [place] [address] [place] AMERICAProtein [Mass/Vol]6.4 g/dLNormal6.3-8.0[facility] on above:Order Comment: Specimen Type: BLOOD SPECIMENOrdering Facility: [facility] Address:[address] [place], [place] [address]Performed By: #### 44142-1 ####[facility] LABIA [id number] [place] [address] [place] Sodium [Moles/Vol]142 mmol/YXdxkiz892-405HmybdqcjiCleveland Clinic Marymount Hospital on above:Order Comment: Specimen Type: BLOOD SPECIMENOrdering Facility: [facility] Address:[address] [place], [place] [address]Performed By: #### 91762-0 ####[facility] LABIA [id number] [place] [id number] [place] AMERICAUrea nitrogen [Mass/Vol]31 mg/dLHigh7-21[facility] on above:Order Comment: Specimen Type: BLOOD SPECIMENOrdering Facility: [facility] Address:[address] [place], [place] [address]Performed By: #### 78244- 8 ####[facility] LABCLIA [id number] [place] [address] [place] AMERICAFerritin SerPl-Guthrie [facility] Hospitalon 01-06-2025 Ferritin [Mass/Vol]449.0 ng/dVQgri18.7-205.1CParkview Health on above:Order Comment: Specimen Type: BLOOD SPECIMEN [facility] Address: [address] [place], [place] [address]Performed By: #### 23068-2, 2276-4 #### [facility] CLIA [id number] [address] [place] [address] [place] AMERICAIron and Iron binding capacity panelon 87-30-6512Cxfd [Mass/Vol]58 ug/pNYqcxrq16-419GdbskowehCleveland Clinic Marymount Hospital on above:Order Comment: Specimen Type: BLOOD SPECIMEN [facility] Address: [address] [place], [place] [address]Performed By: #### 92211-0, 2276-4 #### [facility] CLIA [id number] [address] [place] [address] [place] AMERICAIron binding capacity [Mass/Vol]320 ug/eYFepqlz746-879FpjbifkcgCleveland Clinic [facility] Hospital on above:Order Comment: Specimen Type: BLOOD SPECIMEN [facility] Address: [address] [place], [place] [address]Performed By: #### 05141-1, 6-4 #### [facility] CLIA [id number] [address] [place] [address] [place] AMERICAIron/TIBC [Molar ratio]18.1 %Lawpop17.0-57.0[facility] on above:Order Comment: Specimen Type: BLOOD SPECIMEN [facility] Address: [address] [place], [place] [address]Performed By: #### 78506-1, 2276-4 #### [facility] CLIA [id number] [address] [place] [address] [id number]ETRetics #on 01-06-2025 Reticulocytes (Bld) [#/Vol]0.75016 10*3/uLHigh0.018-0.100[facility] on above:Order Comment: Specimen Type: BLOOD SPECIMENOrdering Facility: [facility] Address:[address] [place], [place] [address]Performed By: #### 54669-8, 97277-5 ####[facility] LABCLIA [id number] [place], [place] [address]Sakpkljgcpmpu (Bld) [#/Vol]on 54-45-6198Vesdpteeevcdf/100 RBC (Bld)4.0 %High0.4-2.0[facility] on above:Order Comment: Specimen Type: BLOOD SPECIMENOrdering Facility: [facility] Address:[address] [place], [place] [address]Performed By: #### 06870-6, 62834-6 ####[facility] LABCLIA [id number] [place], [place] [address]LBJTua 98-86-0211AHTX Telephone (HEMASA) ANH TEJEDA ([id number]) 1950 F Date Time Provider Department 01/02/25 DAKSAH BRIDGES During your visit today, we recorded [...] BLOOD COUNT AND DIFFERENTIAL [SQCBCDIF] Order #: [id number] FUTURE FERRITIN [SQFERR] Order #: [id number] FUTURE IRON AND TIBC [SQIRON] Order #: [id number] FUTURE RETICULOCYTE COUNT [SQRETIC] Order #: [id number] FUTURE COMPREHENSIVE METABOLIC PANEL [SQCMP] Order #: [id number] FUTURE Prescriptions as of 01/02/2025 - diphenhydrAMINE [...] 01/29/2024 Encounter Status:Closed by VERNON HENRIQUEZ on 01/02/[address] with Estimated Average Gluon 94-67-4468Cfsxlfk [Mass/Vol]212 mg/dL NormalThe [facility] Physician GroupComment on above:Result Comment: PERFORMED BY: [place] [address] PATHOLOGIST CYLINDER HONER VEL GARCIA M.D.Performed By: #### MG, CMP, CBC, LIPID #### [facility] [address] [place] [address] GUWQoW4z (Bld) [Mass fraction]9.0 %High4.3-5.6The [facility] Physician GroupComment on above:Result Comment: Increased risk for diabetes: 5.7 - 6.4 diabetes: >6.4 glycemic control for adults with diabetes: <7.0Performed By: #### MG, CMP, CBC, LIPID #### [facility] [address] [place] [address] USAAlanine aminotransferase [Enzymatic activity/volume] in Serum or PlasmaOrdered By: Marilyn Stewart on 78-11-0070ADC [Catalytic activity/Vol] Alanine aminotransferase [Enzymatic activity/volume] in Serum or Plasma [facility] JacksonAlbumin [Mass/volume] in Serum or Plasma by Bromocresol green (BCG) dye binding methoOrdered By: Marilyn Stewart on 12-28-2024 Albumin BCG dye [Mass/Vol]Albumin [Mass/volume] in Serum or Plasma by Bromocresol green (BCG) dye binding metho3.5-5.7FJ.W. Ruby Memorial HospitalAlkaline phosphatase [Enzymatic activity/volume] in Serum or PlasmaOrdered By: Marilyn Stewart on 57-86-9623XJR [Catalytic activity/Vol]Alkaline phosphatase [Enzymatic activity/volume] in Serum or YenhniCegx46-430HittoxzrmHolzer Medical Center – JacksonAppearance of UrineOrdered By: Marilyn Stewart on 68-78-7543Kxdapxcbyj (U)Urine appearanceAbnormalClearHolzer Medical Center – JacksonAspartate aminotransferase [Enzymatic activity/volume] in Serum or PlasmaOrdered By: Marilyn Stewart on 20-05-3044BJL [Catalytic activity/Vol]Aspartate aminotransferase [Enzymatic activity/volume] in Serum or Morbeo59-42JuutzfhnsHolzer Medical Center – JacksonBacteria [Presence] in Urine by AutomatedOrdered By: Marilyn Stewart on 36-07-6086Yexwxwiu Auto Ql (U)Bacteria [Presence] in Urine by AutomatedNone [facility] Health InstituteBilirubin Test strip Ql (U)Ordered By: Marilyn Stewart on 15-20-0530Katdgvdou Ql (U)Bilirubin.total [Presence] in Urine by Test stripNegativeHolzer Medical Center – JacksonBilirubin.total [Mass/volume] in Serum or PlasmaOrdered By: Marilyn Stewart 46-23-1042Afwzogxbs [Mass/Vol] Bilirubin.total [Mass/volume] in Serum or Plasma0.3-1.0[facility] – JacksonBlood estimated average glucose determination by estimation from glycated hemoglobinOrdered By: Vinay Matta on 51-22-9224Aoswyhb glucose Estimated from glycated hemoglobin (Bld) [Mass/Vol]Glucose mean value [Mass/volume] in Blood Estimated from glycated hemoglobinHolzer Medical Center – JacksonCalcium [Mass/volume] in Serum or PlasmaOrdered By: Marilyn Stewart 74-40-2088Ancofkq [Mass/Vol]Calcium [Mass/volume] in Serum or PlasmaLow8.6-10.3 [facility] – JacksonCarbon dioxide, total [Moles/volume] in Serum or PlasmaOrdered By: Marilyn Stewart on 40-04-1670VF7 [Moles/Vol]Carbon dioxide, total [Moles/volume] in Serum or Pklpdq07.0-31.0[facility] – JacksonChloride [Moles/volume] in Serum or PlasmaOrdered By: Marilyn Stewart on 44-31-5855Zptyfbho [Moles/Vol]Chloride [Moles/volume] in Serum or Byihpn39-157 [facility] – JacksonCholesterol [Mass/volume] in Serum or Plasma Ordered By: Marilyn Stewart on 28-25-6178Nleaapfvgqh [Mass/Vol]Cholesterol [Mass/volume] in Serum or JgemjsWyl238-579BhxssrxrnHolzer Medical Center – Jackson Comment on above:Chol less than 200 mg/dl low riskChol 201-239 mg/dl borderline riskChol 240 mg/dl and greater high riskCholesterol in HDL [Mass/volume] in Serum or PlasmaOrdered By: Marilyn Stewart on 34-47-2986Xbqxsnligey in HDL [Mass/Vol]Serum or plasma high density lipoprotein (HDL) cholesterol measurement 23-92[facility] – JacksonComment on above:HDL CHOL ATP-III CLASSIFICATION Cardiovascular RiskHDL > or equal to 60 mg/dL LOWHDL < 40 mg/dL HIGHCholesterol in LDL Calc [Mass/Vol]Ordered By: Marilyn Stewart on 12-28-2024 Cholesterol in LDL [Mass/Vol]Cholesterol in LDL [Mass/volume] in Serum or Plasma by calculation0-100[facility] – JacksonComment on above:LDL ATP III CLASSIFICATIONLDL less than 100 mg/dL OptimalLDL 100-129 mg/dL Near or above gnbubzkWBS854-462 mg/dL Borderline highLDL 160-189 mg/dL HighLDL greater than 189 mg/dL Very highCholesterol in VLDL Calc [Mass/Vol]Ordered By: Marilyn Stewart on 20-52-2251Koxsqgbewdn in VLDL [Mass/Vol]Cholesterol in VLDL [Mass/volume] in Serum or Plasma by calculationHolzer Medical Center – JacksonColor Auto (U) Ordered By: Marilyn Stewart on 84-52-4962Kxqas (U)Color of Urine by AutoYellow [facility] – JacksonComprehensive Metabolic Panelon 12-28-2024 Albumin [Mass/Vol]3.8 g/dLNormal3.5-5.7The [facility] Physician GroupComment on above:Performed By: #### MG, CMP, CBC, LIPID #### [facility] [address] [place] [id number] USAAlbumin/Globulin [Mass ratio]1.8 {ratio}NormalThe [facility] Physician GroupComment on above:Performed By: #### MG, CMP, CBC, LIPID #### [facility] [address] [place] [id number] USAALP [Catalytic activity/Vol]130 U/HAafl13-546Htx [facility] Physician GroupComment on above:Performed By: #### MG, CMP, CBC, LIPID #### [facility] [address] [place] [address] USAALT [Catalytic activity/Vol]19 U/LNormal7-52The [facility] Physician GroupComment on above:Performed By: #### MG, CMP, CBC, LIPID #### [facility] [address] [place] [address] USAAnion gap [Moles/Vol]11.6 mmol/LNormal6.0-15.0The [facility] Physician GroupComment on above:Performed By: #### MG, CMP, CBC, LIPID #### [facility] [address] [place] [id number] USAAST [Catalytic activity/Vol]24 U/YGzvxsh55-22Aiz [facility] Physician GroupComment on above:Performed By: #### MG, CMP, CBC, LIPID #### [facility] [address] [place] [address] USABilirubin [Mass/Vol]0.7 mg/dLNormal0.3-1.0The [facility] Physician GroupComment on above:Performed By: #### MG, CMP, CBC, LIPID #### [facility] [address] [place] [address] USACalcium [Mass/Vol]8.5 mg/dLLow8.6-10.3The [facility] Physician GroupComment on above:Performed By: #### MG, CMP, CBC, LIPID #### [facility] [address] [place] [address] USAChloride [Moles/Vol]102 mmol/BMqeubx55-949Yix [facility] Physician GroupComment on above:Performed By: #### MG, CMP, CBC, LIPID #### [facility] [address] [place] [address] USACO2 [Moles/Vol]29.4 mmol/HFawzwf01.0-31.0The [facility] Physician GroupComment on above:Performed By: #### MG, CMP, CBC, LIPID #### [facility] [address] [place] [address] USACreatinine [Mass/Vol]1.32 mg/dLHigh0.60-1.20The [facility] Physician GroupComment on above:Performed By: #### MG, CMP, CBC, LIPID #### [facility] [address] [place] [address] USAEstimated GFR42.104 mL/MinNoAdventHealth Hendersonville Physician GroupComment on above:Performed By: #### MG, CMP, CBC, LIPID #### [facility] [address] [place] [address] USAGlobulin (S) [Mass/Vol]2.1 g/dLNoAdventHealth Hendersonville Physician GroupComment on above:Performed By: #### MG, CMP, CBC, LIPID #### [facility] [address] [place] [address] USAGlucose [Mass/Vol]182 mg/uJVakq85-857Ukv [facility] Physician GroupComment on above:Result Comment: Random Glucose Reference Range is dependent on time and content of last meal. Glucose of more than 200 mg/dL in a nonstressed, ambulatory subject supports the diagnosis of Diabetes Mellitus. ADA recommended reference rangePerformed By: #### MG, CMP, CBC, LIPID #### [facility] [address] [place] [address] USAPotassium [Moles/Vol]4.0 mmol/LNormal3.5-5.1The [facility] Physician GroupComment on above:Performed By: #### MG, CMP, CBC, LIPID #### [facility] [address] [place] [address] USAProtein [Mass/Vol]5.9 g/dLLow6.4-8.9The [facility] Physician GroupComment on above:Performed By: #### MG, CMP, CBC, LIPID #### [facility] [address] [place] [address] USASodium [Moles/Vol]139 mmol/SHlnlfn456-491Tpx [facility] Physician GroupComment on above:Performed By: #### MG, CMP, CBC, LIPID #### [facility] [address] [place] [address] USAUrea nitrogen [Mass/Vol]29 mg/dLHigh7-25The [facility] Physician GroupComment on above:Performed By: #### MG, CMP, CBC, LIPID #### [facility] [address] [place] [id number] USACreatinine [Mass/volume] in Serum or PlasmaOrdered By: Marilyn Stewart on 11-43-2688Frjgvakkdw [Mass/Vol]Creatinine [Mass/volume] in Serum or PlasmaHigh0.60-1.20[facility] – JacksonCreatinine [Mass/volume] in UrineOrdered By: Marilyn Stewart on 28-57-6498Ivnxfdetfw (U) [Mass/Vol]Creatinine [Mass/volume] in UrineHolzer Medical Center – JacksonComment on above:No reference range establishedDipstick and Microscopicon 87-04-0310Btjjkeeytd (U) CloudyCritically abnormalClearThe [facility] Physician GroupComment on above: Order Comment: A1C IS NOT DUE UNTIL OCTOBER.Performed By: #### MG, CMP, CBC, LIPID #### [facility] [address] [place] [id number] USABacteria,UrineRareNormalNone SeenKeralty Hospital Miami Physician GroupComment on above:Order Comment: A1C IS NOT DUE UNTIL OCTOBER.Performed By: #### MG, CMP, CBC, LIPID #### [facility] [address] [place] [id number] USABilirubin,UrineNegativeNormalNegativeThe [facility] Physician GroupComment on above:Order Comment: A1C IS NOT DUE UNTIL OCTOBER. Performed By: #### MG, CMP, CBC, LIPID #### [place] [address] USAColor (U)Light-YellowNormalYellowThe [facility] Physician GroupComment on above:Order Comment: A1C IS NOT DUE UNTIL OCTOBER.Performed By: #### MG, CMP, CBC, LIPID #### [place] [address] USAGlucose Ql (U)50 mg/dLHighNoalThBingham Memorial Hospital Physician GroupComment on above:Order Comment: A1C IS NOT DUE UNTIL OCTOBER.Performed By: #### MG, CMP, CBC, LIPID #### [place] [address] USAHyaline Casts,UrineNoneNormal0-8The [facility] Physician GroupComment on above:Order Comment: A1C IS NOT DUE UNTIL OCTOBER.Performed By: #### MG, CMP, CBC, LIPID #### [place] [address] USAKetones Ql (U)NegativeNormalNegativeKeralty Hospital Miami Physician GroupComment on above:Order Comment: A1C IS NOT DUE UNTIL OCTOBER. Performed By: #### MG, CMP, CBC, LIPID #### [place] [address] USALeukocyte esterase Test strip Ql (U)NegativeNormalNegative The [facility] Physician GroupComment on above:Order Comment: A1C IS NOT DUE UNTIL OCTOBER.Performed By: #### MG, CMP, CBC, LIPID #### [place] [address] USAMucus,UrineRareNormalThe [facility] Physician GroupComment on above:Order Comment: A1C IS NOT DUE UNTIL OCTOBER.Result Comment: PERFORMED BY: [place] [address] PATHOLOGIST CYLINDER HONER VEL GARCIA M.D.Performed By: #### MG, CMP, CBC, LIPID #### [place] [address] USANitrite,UrinePositiveHighNegativeThe [facility] Physician GroupComment on above:Order Comment: A1C IS NOT DUE UNTIL OCTOBER.Performed By: #### MG, CMP, CBC, LIPID #### [facility] [address] [place] [address] USAOccult Blood,UrineNegativeNormalNegativeThe [facility] Physician GroupComment on above:Order Comment: A1C IS NOT DUE UNTIL OCTOBER. Performed By: #### MG, CMP, CBC, LIPID #### [facility] [address] [place] [address] USApH (U)5.5 [pH]Normal5.0-9.0The [facility] Comment on above:Order Comment: A1C IS NOT DUE UNTIL OCTOBER.Performed By: #### MG, CMP, CBC, LIPID #### [facility] [address] [place] [address] USAProtein,UrineNegativeNormalNegativeThe [facility] Physician GroupComment on above:Order Comment: A1C IS NOT DUE UNTIL OCTOBER.Performed By: #### MG, CMP, CBC, LIPID #### [facility] [address] [place] [address] USARBC,Zdndc0-9Egbeif1-7Rwe [facility] Physician GroupComment on above:Order Comment: A1C IS NOT DUE UNTIL OCTOBER.Performed By: #### MG, CMP, CBC, LIPID #### [facility] [address] [place] [address] USASpecificy Cad[place],Urine1.911Fznzai9.001-1.030The [facility] Physician GroupComment on above:Order Comment: A1C IS NOT DUE UNTIL OCTOBER. Performed By: #### MG, CMP, CBC, LIPID #### [facility] [address] [place] [id number] USASquamous Epithelial Cell,Bvtgd5-9Niey8-6Sdm [facility] Physician GroupComment on above:Order Comment: A1C IS NOT DUE UNTIL OCTOBER. Performed By: #### MG, CMP, CBC, LIPID #### [facility] [address] [place] [address] USAUrobilinogen,UrineNormalNormalNormalThe [facility] Physician GroupComment on above:Order Comment: A1C IS NOT DUE UNTIL OCTOBER. Performed By: #### MG, CMP, CBC, LIPID #### [facility] [address] [place] [address] USAWBC,Vrzrt6-0Soaj5-1Oht [facility] Physician GroupComment on above:Order Comment: A1C IS NOT DUE UNTIL OCTOBER.Performed By: #### MG, CMP, CBC, LIPID #### [facility] [address] [place] [address] USAEpithelial cells.squamous [#/area] in Urine sediment by Automated countOrdered By: Marilyn Smithr on 93-08-3098Yuezfpjikh cells.squamous Auto (Urine sed) [#/Area]Epithelial cells.squamous [#/area] in Urine sediment by Automated countHigh0-2FJ.W. Ruby Memorial HospitalErythrocyte distribution width Auto (RBC) [Ratio]Ordered By: Marilyn Terry on 83-57-1581Nugelfszwku distribution width (RBC) [Ratio]Erythrocyte distribution width [Ratio] by Automated edsuzJtkl95.9-15.3FJ.W. Ruby Memorial HospitalErythrocytes [#/area] in Urine sediment by Automated countOrdered By: Marilyn Terry on 00-73-6377XBO Auto (Urine sed) [#/Area]Erythrocytes [#/area] in Urine sediment by Automated count0-4FJ.W. Ruby Memorial HospitalFerritinon 12-28-2024 Ferritin [Mass/Vol]398.3 ng/lFNnva65.0-306.8The [facility] Physician GroupComment on above:Performed By: #### MG, CMP, CBC, LIPID #### [facility] [address] [place] [address] USAFerritin [Mass/volume] in Serum or PlasmaOrdered By: Marilyn Terry on 22-94-2658Hitcnemk [Mass/Vol]Ferritin [Mass/volume] in Serum or Plasma High11.0-306.8[facility] – JacksonGlobulin Calc (S) [Mass/Vol] Ordered By: Marilyn Terry on 46-37-7928Tlgmrbvs (S) [Mass/Vol]Serum globulin measurement by calculation (mass/volume)[facility] – JacksonGlucose [Mass/volume] in Serum or PlasmaOrdered By: Marilyn Stewart on 24-66-6500Agykphr [Mass/Vol]Glucose [Mass/volume] in Serum or BbxvhtGxea66-120DhxkylrrqHolzer Medical Center – JacksonComment on above:ADA recommended reference rangeRandom Glucose Reference Range is dependent on time and content of last meal. Glucose of more than 200 mg/dL in a nonstressed, ambulatory subject supports the diagnosisof Diabetes Mellitus.Glucose [Mass/volume] in Urine by Test stripOrdered By: Marilyn Stweart on 19-97-6182Etplxgw Test strip (U) [Mass/Vol]Glucose [Mass/volume] in Urine by Test stripHighNormalHolzer Medical Center – JacksonHematocrit Auto (Bld) [Volume fraction]Ordered By: Marilyn Stewart on 76-02-1733Uempbhudhk (Bld) [Volume fraction]Hematocrit [Volume Fraction] of Blood by Automated countLow 34.0-46.4FJ.W. Ruby Memorial HospitalHemoglobin A1c/Hemoglobin.total in BloodOrdered By: Vinay Matta on 31-58-0880LiJ1p (Bld) [Mass fraction] Hemoglobin A1c percentageHigh4.3-5.6FJ.W. Ruby Memorial HospitalComment on above:Increased risk for diabetes: 5.7 - 6.4diabetes: >6.4glycemic control for adults with diabetes: <7.0Hemoglobin Test strip Ql (U)Ordered By: Marilyn Stewart on 18-04-2942Qvyxxdocvl Ql (U)Hemoglobin [Presence] in Urine by Test strip [facility] HospitalHemoglobin [Mass/volume] in Blood Ordered By: Marilyn Stewart on 69-10-6753Ogkfrohcre (Bld) [Mass/Vol]Hemoglobin [Mass/volume] in GscbwCdx14.8-15.4FJ.W. Ruby Memorial HospitalHemogram CBC Without Diffon 22-67-7928Fpsglkyxxat distribution width (RBC) [Ratio]16.5 %High 11.9-15.3The [facility] Physician GroupComment on above:Performed By: #### MG, CMP, CBC, LIPID #### [place] [address] USAHematocrit (Bld) [Volume fraction]31.9 %Low34.0-46.4The [facility] Physician GroupComment on above:Performed By: #### MG, CMP, CBC, LIPID #### [place] [address] USAHemoglobin (Bld) [Mass/Vol]11.4 g/dLLow11.8-15.4The [facility] Physician GroupComment on above:Performed By: #### MG, CMP, CBC, LIPID #### [address]H (RBC) [Entitic mass]30.3 wbLmwike83.7-34.3The [facility] Physician GroupComment on above:Performed By: #### MG, CMP, CBC, LIPID #### [place] [address] USAMCV (RBC) [Entitic vol]85.1 rLThoqoi13-639Grd [facility] Physician GroupComment on above:Performed By: #### MG, CMP, CBC, LIPID #### [place] [address] USAMean Corpuscular HGB Conc35.6 g/pGTwje26.0-35.0The [facility] Physician GroupComment on above:Performed By: #### MG, CMP, CBC, LIPID #### [place] [address] USAPlatelet mean volume (Bld) [Entitic vol]6.9 fLNormal 6.3-10.7The [facility] Physician GroupComment on above:Result Comment: PERFORMED BY: [place] [address] PATHOLOGIST CYLINDER HONER VEL GARCIA M.D.Performed By: #### MG, CMP, CBC, LIPID #### [place] [address] USAPlatelets (Bld) [#/Vol]148 10*3/oQZrc744-835Ozf [facility] Physician GroupComment on above:Performed By: #### MG, CMP, CBC, LIPID #### [place] [address] USARBC (Bld) [#/Vol]3.75 10*6/uLNormal3.60-5.00The [facility] Physician GroupComment on above:Performed By: #### MG, CMP, CBC, LIPID #### [facility] [address] [place] [address] USAWBC (Bld) [#/Vol]4.5 10*3/uLNormal3.8-11.6The [facility] Physician GroupComment on above:Performed By: #### MG, CMP, CBC, LIPID #### [facility] [address] [place] [address] USAHyaline casts [#/area] in Urine sediment by Automated countOrdered By: Marilyn Stewart on 64-78-4118Iohdtzx casts Auto (Urine sed) [#/Area]Hyaline casts [#/area] in Urine sediment by Automated count0-8Hol[facility] Center – JacksonIron [Mass/volume] in Serum or PlasmaOrdered By: Marilyn Stewart on 54-26-6819Qyec [Mass/Vol]Iron [Mass/volume] in Serum or Ojmngd93-986 [facility] – JacksonIron and TIBC Profileon 12-28-2024% Iron Xcohjcpflm74.1 %Shurwk18-22Pqx [facility] Physician GroupComment on above: Performed By: #### MG, CMP, CBC, LIPID #### [place] [address] USAIron [Mass/Vol]90 ug/pROevgqu94-030Ahb [facility] Physician GroupComment on above:Performed By: #### MG, CMP, CBC, LIPID #### [place] [address] USATotal Iron Binding Piyovwlh621 ug/sQCmkyzx213-533Dnb [facility] Physician GroupComment on above:Performed By: #### MG, CMP, CBC, LIPID #### [place] [address] USATransferrin [Mass/Vol]256 mg/iUFxzujx275-618Akz [facility] Physician GroupComment on above:Performed By: #### MG, CMP, CBC, LIPID #### [facility] [address] [place] [address] USAKetones Test strip Ql (U)Ordered By: Marilyn Stewart on 24-22-1525Utquxoq Ql (U)Ketones [Presence] in Urine by Test stripNegative [facility] – JacksonLeukocyte esterase [Presence] in Urine by Test stripOrdered By: Marilyn Stewart on 36-66-0427Mvqsgfbpr esterase Test strip Ql (U) Leukocyte esterase [Presence] in Urine by Test stripNegativeHolzer Medical Center – JacksonLeukocytes [#/area] in Urine sediment by Automated countOrdered By: Marilyn Stewart on 94-58-6117JHV Auto (Urine sed) [#/Area]Leukocytes [#/area] in Urine sediment by Automated countHigh0-4FJ.[facility]. [facility] Leukocytes [#/volume] corrected for nucleated erythrocytes in Blood by Automated counOrdered By: Marilyn Stewart on 61-45-8271SRW corrected for nucl RBC Auto (Bld) [#/Vol]Leukocytes [#/volume] corrected for nucleated erythrocytes in Blood by Automated coun3.8-11.6FJ.W. Ruby Memorial HospitalLipid Panelon 12-28-2024 Cholesterol [Mass/Vol]107 mg/pJUpr459-507Kpt [facility] Physician GroupComment on above:Result Comment: Chol less than 200 mg/dl low risk Chol 201-239 mg/dl borderline risk Chol 240 mg/dl and greater high riskPerformed By: #### MG, CMP, CBC, LIPID #### [facility] [address] [place] [address] USACholesterol in HDL [Mass/Vol]38 mg/rCDkuxgl38-13Iis [facility] Physician GroupComment on above:Result Comment: HDL CHOL ATP-III CLASSIFICATION Cardiovascular Risk HDL > or equal to 60 mg/dL LOW HDL < 40 mg/dL HIGHPerformed By: #### MG, CMP, CBC, LIPID #### [facility] [address] [place] [address] USACholesterol.total/Cholesterol in HDL [Mass ratio]2.8 {ratio}Normal<5.0The [facility] Physician GroupComment on above:Performed By: #### MG, CMP, CBC, LIPID #### [facility] [address] [place] [id number] USALDL Cholesterol,Rtrndrgqwt75 mg/dLNormal0-100The [facility] Physician GroupComment on above:Result Comment: LDL ATP III CLASSIFICATION LDL less than 100 mg/dL Optimal LDL 100-129 mg/dL Near or above optimal LDL 130-159 mg/dL Borderline high LDL 160-189 mg/dL High LDL greater than 189 mg/dL Very highPerformed By: #### MG, CMP, CBC, LIPID #### [facility] [address] [place] [id number] USATriglyceride w/Wansca046 mg/dLNormal0-149The [facility] Physician GroupComment on above:Result Comment: TRIG ATP III CLASSIFICATION TRIG less than 150 mg/dL Normal TRIG 150-199 mg/dL Borderline high TRIG 200-500 mg/dL High TRIG greater than 500 mg/dL Very high Standard traceable to the Center for Disease Conrtrol and Prevention (CDC) test method.Performed By: #### MG, CMP, CBC, LIPID #### [facility] [address] [place] [id number] USAVLDL MTDCJWQQBLL77 mg/dLNormalThe [facility] Physician GroupComment on above:Performed By: #### MG, CMP, CBC, LIPID #### [facility] [address] [place] [id number] [facility] Auto (RBC) [Entitic mass]Ordered By: Marilyn Stewart on 02-84-9579MJX (RBC) [Entitic mass]MCH [Entitic mass] by Automated count24.7-34.3 [facility] Auto (RBC) [Mass/Vol]Ordered By: Marilyn Terry on 43-66-8581CJBT (RBC) [Mass/Vol]MCHC [Mass/volume] by Automated count High32.0-35.0[facility] Auto (RBC) [Entitic vol] Ordered By: Marilyn Terry on 80-84-8000VMR (RBC) [Entitic vol]MCV [Entitic volume] by Automated quinu36-141JwmiluyyaHolzer Medical Center – JacksonMM screening mammo BI w/CADon 75-93-9818XM screening mammo BI [facility] [place] [address] [place], [place] [address] Mammography Report Signed Patient: Anh Tejeda MR#: [id number] : 1950 Acct:[id number] Age/Sex: 73 / F ADM Date: 12/28/24 Loc: [place] Room: Type: [facility] Attending Dr: Referral Self Copies to: Vinay [...] Sharad Robles M.D.12/28/2024 12:10 PM Dictation Location: [facility] Transcribed By: [facility] 12/28/24 1210 Dictated By: Sharad Robles DO 12/28/24 1204 Signed By: 12/28/24 1210NormAdventHealth Dade City Physician GroupMagnesiumon 46-22-1304Lgjrfapwx [Mass/Vol]1.2 mg/dLLow1.9-2.7The [facility] Physician GroupComment on above: Performed By: #### MG, CMP, CBC, LIPID #### [facility] [address] [place] [address] USAMagnesium [Mass/volume] in Serum or PlasmaOrdered By: Marilyn Stewart on 10-95-7364Hymbqlxcm [Mass/Vol]Magnesium [Mass/volume] in Serum or PlasmaLow1.9-2.7FJ.W. Ruby Memorial HospitalMammography reportOrdered By: Sharad Robles on 13-99-9162Ouombjknzb imaging studySOUTHVIEW MEDICAL [facility]ENTER [place] [address] [place] [address] Mammography Report Signed Patient: Anh Tejeda MR#: [id number] : 1950 Acct:[id number] Age/Sex: 73 / F ADM Date: 5 Loc: CO Room: Type: [facility] CL Attending Dr: Referral Self Copies [...] Sharad Robles M.D.12/28/2024 12:10 PM Dictation Location: [facility] Transcribed By: [facility] 12/28/24 1210 Dictated By: Sharad Robles DO 12/28/24 1204 Signed By: 12/28/24 1210 [facility] – JacksonMucus [Presence] in Urine by AutomatedOrdered By: Marilyn Stewart on 49-24-9456Ivdjr Auto Ql (U)Mucus [Presence] in Urine by AutomatedHolzer Medical Center – JacksonNitrite Test strip Ql (U)Ordered By: Marilyn Stewart on 61-57-3716Dskekcg Ql (U)Nitrite [Presence] in Urine by Test strip HighNegativeHolzer Medical Center – JacksonNo Panel InformationOrdered By: Marilyn Stewart on 27-54-3300Ptmyzpqvb GFR (CKD-EPI)42.104 mL/MinHolzer Medical Center – JacksonPharmacy Creatinine Clearance (ChemN/AFJ.W. Ruby Memorial HospitalParathyrin.intact [Mass/volume] in Serum or PlasmaOrdered By: Marilyn Stewart on 06-92-8597Cqagaomsvy.intact [Mass/Vol]Parathyrin.intact [Mass/volume] in Serum or Ghovvb53-21PraefsdalHolzer Medical Center – JacksonParathyroid Hormone Intact on 44-50-5369Ydfzpfsgxqe Hormone Xoxsup17.7 pg/gWEvaozj26-89Isx [facility] Physician GroupComment on above:Result Comment: PERFORMED BY: [place] [address] PATHOLOGIST CYLINDER HONER VEL GARCIA M.D.Performed By: #### MG, CMP, CBC, LIPID #### [facility] [address] [place] [address] USAPhosphate [Mass/volume] in Serum or PlasmaOrdered By: Marilyn Stewart on 61-96-2321Pyihcfzpo [Mass/Vol]Phosphate [Mass/volume] in Serum or Plasma2.5-4.5FJ.W. Ruby Memorial HospitalPlatelet mean volume Auto (Bld) [Entitic vol]Ordered By: Marilyn Stewart on 48-59-7628Bmrqflfs mean volume (Bld) [Entitic vol]Platelet mean volume [Entitic volume] in Blood by Automated count 6.3-10.7FJ.W. Ruby Memorial HospitalPlatelets Auto (Bld) [#/Vol]Ordered By: Marilyn Stewart on 47-61-3185Bytugmzor (Bld) [#/Vol]Platelets [#/volume] in Blood by Automated kuqbtJlx109-048WruamqddyHolzer Medical Center – JacksonPotassium [Moles/volume] in Serum or PlasmaOrdered By: Marilyn Stewart on 29-72-7145Hkisuhqkv [Moles/Vol]Potassium [Moles/volume] in Serum or Plasma3.5-5.1FJ.W. Ruby Memorial HospitalProtein Creat Ratio Ur Randomon 31-45-3894Ogxfpxfxvw, Urine (Random)74.00 mg/dLNormAdventHealth Dade City Physician [facility]aughters Medical CenterComment on above:Result Comment: No reference range establishedPerformed By: #### MG, CMP, CBC, LIPID #### [facility] [address] [place] [address] USAProtein (U) [Mass/Vol]23 mg/dLHigh0-9The [facility] Physician GroupComment on above:Performed By: #### MG, CMP, CBC, LIPID #### [facility] [address] [place] [address] USAUrine Protein/Creatinine Hxdyf292 mg/g{Cre}High0-200The [facility] Physician [facility]aughters Medical CenterComment on above:Result Comment: PERFORMED BY: [place] [address] PATHOLOGIST CYLINDER HONER VEL GARCIA M.D.Performed By: #### MG, CMP, CBC, LIPID #### [facility] [address] [place] [address] USAProtein Test strip (U) [Mass/Vol]Ordered By: Marilyn Terry on 91-71-4053Dgstkae (U) [Mass/Vol]Protein [Mass/volume] in Urine by Test strip NegativeHolzer Medical Center – JacksonProtein [Mass/volume] in Serum or PlasmaOrdered By: Marilyn Terry on 97-07-7638Uqatmuy [Mass/Vol]Protein [Mass/volume] in Serum or PlasmaLow6.4-8.9[facility] Protein [Mass/volume] in UrineOrdered By: Marilyn Terry on 32-88-8381Tsholtl (U) [Mass/Vol]Protein [Mass/volume] in UrineHigh0-9[facility] RBC Auto (Bld) [#/Vol]Ordered By: Marilyn Terry on 09-53-1553BXH (Bld) [#/Vol] Erythrocytes [#/volume] in Blood by Automated count3.60-5.00Hol[facility] Medical Center – JacksonRenal Function Panelon 75-09-2969Kzccepkkb [Mass/Vol]4.1 mg/dL Normal2.5-4.5The [facility] Physician GroupComment on above:Performed By: #### MG, CMP, CBC, LIPID #### [facility] [address] [place] [address] USASerum or plasma albumin/globulin mass ratioOrdered By: Marilyn Stewart on 36-20-3373Rnrvbxq/Globulin [Mass ratio]Serum or plasma albumin/globulin mass ratioMercy Health Clermont Hospitalerum or plasma anion gap determinationOrdered By: Marilyn Stewart on 19-87-2042Hoemf gap [Moles/Vol]Serum or plasma anion gap determination6.0-15.0Mercy Health Clermont Hospitalerum or plasma iron binding capacity measurement (mass/volume) Ordered By: Marilyn Stewart on 21-58-4741Rbwp binding capacity [Mass/Vol]Iron binding capacity [Mass/volume] in Serum or Tmzfeu057-000LdkyqejxbMercy Health Clermont Hospitalerum or plasma iron saturation measurement (mass fraction)Ordered By: Marilyn Stewart on 53-41-5342Cgse saturation [Mass fraction]Iron saturation [Mass Fraction] in Serum or Kjfqyv13-61JslxzdwonMercy Health Clermont Hospitalerum or plasma total cholesterol/high density lipoprotein (HDL) cholesterol mass rat Ordered By: Marilyn Stewart on 35-01-9104Ugnkwlcbwye.total/Cholesterol in HDL [Mass ratio]Serum or plasma total cholesterol/high density lipoprotein (HDL) cholesterol mass rat<5.0Mercy Health Clermont Hospitalodium [Moles/volume] in Serum or PlasmaOrdered By: Marilyn Stewart on 56-52-4919Mwccsq [Moles/Vol]Sodium [Moles/volume] in Serum or Ebrlzf154-199RaffehsccHolzer Medical Center – Jackson Specific gravity Test strip (U) [Rel density]Ordered By: Marilyn Stewart on 75-99-3983Dzgizvsd gravity (U) [Rel density]Specific gravity of Urine by Test strip1.001-1.030[facility] Center – JacksonTransferrin [Mass/volume] in Serum or PlasmaOrdered By: Marilyn Stewart on 63-24-3305Xkyyazcjhfl [Mass/Vol] Transferrin [Mass/volume] in Serum or Inzabm076-501RmzvqykxtHolzer Medical Center – JacksonTriglyceride [Mass/volume] in Serum or PlasmaOrdered By: Marilyn Stewart on 18-31-1789Tesxeuawmiil [Mass/Vol]Triglyceride [Mass/volume] in Serum or Plasma 0-149Hol[facility] Center – JacksonComment on above:TRIG ATP III CLASSIFICATIONTRIG less than 150 mg/dL NormalTRIG 150-199 mg/dL Borderline highTRIG 200-500 mg/dL High TRIG greater than 500 mg/dL Very highStandard traceable to the Center for Disease Conrtrol and Prevention (CDC) test method. Urate [Mass/volume] in Serum or PlasmaOrdered By: Marilny Stewart on 74-08-6516Afcyq [Mass/Vol]Urate [Mass/volume] in Serum or Plasma2.3-6.6FJ.W. Ruby Memorial HospitalUrea nitrogen [Mass/volume] in Serum or PlasmaOrdered By: Marilyn Stewart on 18-53-0524Covn nitrogen [Mass/Vol]Urea nitrogen [Mass/volume] in Serum or PlasmaHigh7-25[facility] Center – JacksonUric Acidon 88-48-6035Dwlur [Mass/Vol]3.8 mg/dLNormal2.3-6.6The [facility] Physician GroupComment on above: Performed By: #### MG, CMP, CBC, LIPID #### [address] StreetUrine Cultureon 48-81-5453Hiaboywn identified Cx Nom (U) ORGANISM: Escherichia coli (O:ESCCOL) Thornton Count >100,000 Aerobic JUNAID Charge (NMIC56) SUSCEPTIBILITY [...] RESISTANT TO ALL B-LACTAM DRUGS. PERFORMED BY: [place] [address] PATHOLOGIST CYLINDER HONER VEL GARCIA M.D.NormalThe [facility] Hospital Physician GroupComment on above: Performed By: #### MG, CMP, CBC, LIPID #### [facility] [address] [place] [address] USAUrine cultureOrdered By: Marilyn Stewart on 68-47-9369Mnpdkjpr identified Cx Nom (U)Escherichia coliAbHarrison Community Hospital Urine protein/creatinine ratioOrdered By: Marilyn Stewart on 12-28-2024 Protein/Creatinine (U) [Ratio]Urine protein/creatinine ratioHigh0-200Hol[facility] Center – JacksonUrobilinogen Test strip (U) [Mass/Vol]Ordered By: Marilyn Stewart on 57-06-5281Cxyymutdlynl (U) [Mass/Vol]Urobilinogen [Mass/volume] in Urine by Test stripMiddletown HospitalVitamin D 25 Hydroxy Totalon 04-05-9684Mkegtlk D 25 Hydroxy Total58.1 ng/wDCypqpm04-247Dkx [facility] Physician GroupComment on above:Result Comment: VITAMIN D STATUS 25(OH)VITAMIN D RANGE (ng/mL) Deficient <20 Insufficient 20 to <30 Sufficient 30 to 100 Reference: Oli MF,Albert NC, ClaudeHawk LACKEY et al. Evaluation,treatment, and prevention of vitamin D deficiency; an Endocrine Society clinical practice guideline. JCEM. 2010; 96(7):1911-30. PERFORMED BY: [place] [id number] PATHOLOGIST CYLINDER HONER VEL GARCIA M.D.Performed By: #### MG, CMP, CBC, LIPID #### [place] [id number] USAVitamin D+Metabolites [Mass/volume] in Serum or Plasma Ordered By: Marilyn Stewart on 69-71-1238Kwblyud D+Metabolites [Mass/Vol]Vitamin D+Metabolites [Mass/volume] in Serum or Gmjspa91-721KovcgpkduHolzer Medical Center – JacksonComment on above:VITAMIN D STATUS 25(OH)VITAMIN D RANGE (ng/mL) Deficient <20 Insufficient 20 to <18Kfgnxlvjvh61 to 100Reference: Oli MF,Albert NC, Beltran LACKEY et al. Evaluation,treatment, and prevention of vitamin D deficiency; an Endocrine Society clinical practice guideline. JCEM. 2010; 96 (7):1911-30.pH Test strip (U)Ordered By: Marilyn Stewart on 85-60-3891zL (U)pH of Urine by Test strip5.0-9.0Hol[facility] Center – JacksonX-ray reportOrdered By: René Fox on 00-56-1390Ddkig reportSOUTHVIEW MEDICAL CENTER [place] [address] [place], [place] [address] XRay Report Signed Patient: Anh Tejeda MR#: [id number] : 1950 Acct:[id number] Age/Sex: 73 / F ADM Date: 5 Loc: XD Room: Type: [facility] Attending Dr: Vinay Matta DO Copies to: [...] Jr DO 12/15/241613 Signed By: 12/15/24 1614 [facility] – JacksonXR lumbar spine 6V w bendingon 33-41-2233YD lumbar spine 6V w bendingSOUTHVIEW MEDICAL CENTER [place] [address] [place] [address] XRay Report Signed Patient: Anh Tejeda MR#: [id number] : 1950 Acct:[id number] Age/Sex: 73 / F ADM Date: 12/15/24 Loc: XD Room: Type: [facility] Attending Dr: Vinay Matta DO Copies to: [...] Fox Jr DO 12/15/241613 Signed By: 12/15/24 [facility] Physician GroupCNPNon 68-75-1186XBVIAlkzgtcii (HEMASA) ANH TEJEDA ([id number]) 1950 F Date Time Provider Department 10/10/24 [...] 01/29/2024 Encounter Status:Closed by SAMANTHA MCMAHAN on 10/10/24NormalCOhio State Health System W Auto Differential panel (Bld)on 28-67-8926Henfdwgqi (Bld) [#/Vol] 10*3/uLNormal<0.11CParkview Health on above:Order Comment: Specimen Type: BLOOD SPECIMENOrdering Facility: [facility] Address:[address] [place], [place] [address]Sztphjnkh By: #### 21890-2, 86068-2 ####[facility] LABCLIA [id number] [place], [place] [address]Dpnootxqc/100 WBC (Bld)0.4 %NormalCleveland Clinic [facility] on above:Order Comment: Specimen Type: BLOOD SPECIMENOrdering Facility: [facility] Address:[address] [place], [place] [address]Zyplnsghv By: #### 63860-9, 83854-6 ####[facility] LABCLIA [id number] [place], [place] [address]Nnwagtssksqw cell count method Nom (Bld)AutoNormalCParkview Health on above:Order Comment: Specimen Type: BLOOD SPECIMENOrdering Facility: [facility] Address:[address] [place], [place] [address]Performed By: #### 87660- 8, 53507-6 ####[facility] LABCLIA [id number] [place], [place] [address]Gniigmmohgg (Bld) [#/Vol]0.17 10*3/uLNormal<0.46 [facility] on above:Order Comment: Specimen Type: BLOOD SPECIMENOrdering Facility: [facility] Address:[address] [place], [place] [address]Performed By: #### 20586-4, 45744-2 ####[facility] LABCLIA [id number] [place] [address] Eosinophils/100 WBC (Bld)3.3 %NormalCleveland Clinic Marymount Hospital on above: Order Comment: Specimen Type: BLOOD SPECIMENOrdering Facility: [facility] Address:[address] [place], [place] [address]Performed By: #### 51732- 8, 64344-6 ####[facility] LABCLIA [id number] [place], [place] [address]Kklkjuftxax distribution width (RBC) [Ratio]15.1 % High11.5-15.0[facility] on above:Order Comment: Specimen Type: BLOOD SPECIMENOrdering Facility: [facility] Address:[address] [place], [place] [address]Performed By: #### 95086-6, 05774-8 ####[facility] LABCLIA [id number] [place], [place] [address]Rmwhtwdemg (Bld) [Volume fraction]33.0 %Low36.0-46.0 [facility] on above:Order Comment: Specimen Type: BLOOD SPECIMENOrdering Facility: [facility] Address:[address] [place], [place] [address]Performed By: #### 35884-4, 41519-8 ####[facility] LABCLIA [id number] [place] [address] Hemoglobin (Bld) [Mass/Vol]11.6 g/lQFcfiug66.5-15.5CCincinnati Shriners Hospital Comment on above:Order Comment: Specimen Type: BLOOD SPECIMENOrdering Facility: [facility] Address:[address] [place] [address] Performed By: #### 30387-6, 47490-2 ####[facility] LABCLIA [id number] [place], [place] [address]Funqfevd granulocytes (Bld) [#/Vol]10*3/uLNormal<0.10[facility] Medical Centerment on above:Order Comment: Specimen Type: BLOOD SPECIMENOrdering Facility: [facility] Address:[address] [place], [place] [address]Performed By: #### 58939- 8, 98772-1 ####[facility] LABIA [id number] [place], [place] [address]Etjfyydi granulocytes/100 WBC (Bld)0.4 %Normal [facility] on above:Order Comment: Specimen Type: BLOOD SPECIMENOrdering Facility: [facility] Address:[address] [place], [place] [address]Performed By: #### 78580-8, 28581-5 ####[facility] LABIA [id number] [place] [address] Lymphocytes (Bld) [#/Vol]1.32 10*3/uLNormal1.00-4.00[facility] Comment on above:Order Comment: Specimen Type: BLOOD SPECIMENOrdering Facility: [facility] Address:[address] [place] [address] Performed By: #### 09034-0, 97017-3 ####[facility] LABCLIA [id number] [place], [place] [address]Jswihtwiuaw/100 WBC (Bld)25.5 %NormalCleveland Clinic Marymount Hospital on above:Order Comment: Specimen Type: BLOOD SPECIMENOrdering Facility: [facility] Address:[address] [place], [place] [address]Performed By: #### 06351-7, 66908-8 ####[facility] LABCLIA [id number] [place], [place] [address]ADR (RBC) [Entitic mass]29.7 rlKyxbsx84.0-34.0[facility] on above:Order Comment: Specimen Type: BLOOD SPECIMENOrdering Facility: [facility] Address:[address] [place], [place] [address]Performed By: #### 52551-2, 49651-8 ####[facility] LABCLIA [id number] [place], [place] [address]XWMA (RBC) [Mass/Vol]35.2 g/vGSdpjbp50.5-36.0[facility] on above:Order Comment: Specimen Type: BLOOD SPECIMENOrdering Facility: [facility] Address:[address] [place], [place] [address]Performed By: #### 52022-6, 95752-6 ####[facility] LABCLIA [id number] [place], [place] [address]CND (RBC) [Entitic vol]84.6 fLNormal 80.0-100.0[facility] on above:Order Comment: Specimen Type: BLOOD SPECIMENOrdering Facility: [facility] Address:[address] [place], [place] [address]Performed By: #### 38126-2, 33447-8 ####[facility] LABCLIA [id number] [place], [place] [address]Kcbgymzzh (Bld) [#/Vol]0.28 10*3/uLNormal<0.87[facility] Hospital on above:Order Comment: Specimen Type: BLOOD SPECIMENOrdering Facility: [facility] Address:[address] [place], [place] [address]Performed By: #### 56662-5, 89170-6 ####[facility] LABCLIA [id number] [place] [address] Monocytes/100 WBC (Bld)5.4 %NormalCleveland Clinic [facility] on above: Order Comment: Specimen Type: BLOOD SPECIMENOrdering Facility: [facility] Address:[address] [place], [place] [address]Performed By: #### 80450- 8, 37530-5 ####[facility] LABCLIA [id number] [place], [place] [address]Gglnkahawff (Bld) [#/Vol]3.37 10*3/uLNormal 1.45-7.50[facility] on above:Order Comment: Specimen Type: BLOOD SPECIMENOrdering Facility: [facility] Address:[address] [place], [place] [address]Performed By: #### 90698-0, 91461-6 ####[facility] LABCLIA [id number] [place], [place] [address]Vkkwgjrwisw/100 WBC (Bld)65.0 %NormalCleveland Clinic Marymount Hospital on above:Order Comment: Specimen Type: BLOOD SPECIMENOrdering Facility: [facility] Address:[address] [place], [place] [address]Performed By: #### 31160-6, 12106-6 ####[facility] LABIA [id number] [place], [place] [address]Xhwetamto RBC (Bld) [#/Vol]10*3/uLNormal<0.01[facility] on above:Order Comment: Specimen Type: BLOOD SPECIMENOrdering Facility: [facility] Address:[address] [place], [place] [address]Performed By: #### 47929- 8, 99705-9 ####[facility] LABCLIA [id number] [place], [place] [address]Xhfugecas RBC/100 WBC (Bld) [Ratio]0.0 /100 WBC NormalCleveland Clinic Marymount Hospital on above:Order Comment: Specimen Type: BLOOD SPECIMENOrdering Facility: [facility] Address:[address] [place], [place] [address]Performed By: #### 44767-7, 75218-5 ####[facility] LABCLIA [id number] [place], [place] [address]Xtjbjoiz mean volume (Bld) [Entitic vol]9.8 fLNormal9.0-12.7CParkview Health on above:Order Comment: Specimen Type: BLOOD SPECIMENOrdering Facility: [facility] Address:[address] [place], [place] [address]Performed By: #### 64262-7, 55847-8 ####[facility] LABIA [id number] [place] [address] Platelets (Bld) [#/Vol]126 10*3/hYZbl247-760HrexbplxfCleveland Clinic Marymount Hospital on above:Order Comment: Specimen Type: BLOOD SPECIMENOrdering Facility: [facility] Address:[address] [place], [place] [address]Result Comment: Results checked and verified.No clot detected.Performed By: #### 57729-0, 57565- 0 ####[facility] LABIA [id number] [place], [place] [address]GBO (Bld) [#/Vol]3.90 10*6/uLNormal3.90-5.20[facility] on above:Order Comment: Specimen Type: BLOOD SPECIMENOrdering Facility: [facility] Address:[address] [place], [place] [address]Performed By: #### 54983-4, 77573-5 ####[facility] LABCLIA [id number] [place], [place] [address]KJG (Bld) [#/Vol]5.18 10*3/uLNormal3.70-11.00Protestant HospitalComment on above:Order Comment: Specimen Type: BLOOD SPECIMENOrdering Facility: [facility] Address:[address] [place], [place] [address]Yyqgltghj By: #### 12620-2, 84295-3 ####[facility] LABCLIA [id number] [place], [place] [address]LPSXJTkl [id number] (SP) Office (HEMASA) ANH TEJEDA ([id number]) 1950 F Date Time Provider Department 10/07/24 2:30 PM DAKSHA BRIDGES During your visit today, we recorded the following information about you: Temperature Pulse Respiration Blood pressure 97.1 degrees 81/minute 18/minute 144/75 Weight Height 96.7 kg 1.58 m Daksha Bridges PA-C 10/07/2024 2:56 PM Signed Hematology Progress Note PATIENT NAME: Anh Tejeda CLINIC NO.: [id number] ATTENDING PHYSICIAN: Henry Walker MD DATE OF [...] bilaterally Abdomen: Benign Extremities: (more content not included)...NormalProtestant [facility] Comprehensive metabolic 2000 panelon 55-14-0919Taxdcqm [Mass/Vol]3.9 g/dLNormal 3.9-4.9CCincinnati Shriners HospitalComment on above:Order Comment: Specimen Type: BLOOD SPECIMEN [facility] Address: [address] [place], [place] [address]Performed By: #### 83772-4, 2276-4 #### [facility] CLIA [id number] [address] [place] [address] [place] AMERICAALP [Catalytic activity/Vol] 182 U/KBylq44-092UfifxlpmxCleveland Clinic Marymount Hospital on above:Order Comment: Specimen Type: BLOOD SPECIMEN [facility] Address: [address] [place], [place] [address]Performed By: #### 23854-9, 2275- #### [facility] CLIA [id number] [address] [place] [address] [place] AMERICAALT [Catalytic activity/Vol] 17 U/LNormal7-38[facility] on above:Order Comment: Specimen Type: BLOOD SPECIMEN [facility] Address: [address] [place], [place] [address]Performed By: #### 77498-7, 2276-02 #### [facility] CLIA [id number] [address] [place] [address] [place] AMERICAAnion gap [Moles/Vol]11 mmol/LNormal8-15[facility] on above:Order Comment: Specimen Type: BLOOD SPECIMEN [facility] Address: [address] [place], [place] [address]Performed By: #### 55857-6, 2276-02 #### [facility] CLIA [id number] [address] [place] [address] [place] AMERICAAST [Catalytic activity/Vol] 21 U/UDnusek20-49LdxgcmvarCleveland Clinic Marymount Hospital on above:Order Comment: Specimen Type: BLOOD SPECIMEN [facility] Address: [address] [place], [place] [address]Performed By: #### 39840-4, 2275-4 #### [facility] CLIA [id number] [address] [place], [place] [address] [place] AMERICABilirubin [Mass/Vol]0.6 mg/dLNormal0.2-1.3CParkview Health on above:Order Comment: Specimen Type: BLOOD SPECIMEN [facility] Address: [address] [place], [place] [address]Performed By: #### 67394-0, 2276-02 #### [facility] CLIA [id number] [address] [place] [address] [place] AMERICACalcium [Mass/Vol]9.1 mg/dL Normal8.5-10.2CParkview Health on above:Order Comment: Specimen Type: BLOOD SPECIMEN [facility] Address: [address] [place], [place] [address]Performed By: #### 47983-6, 2276-02 #### [facility] CLIA [id number] [address] [place] [address] [place] AMERICAChloride [Moles/Vol]99 mmol/XHzwnfv31-668GwwmklchlCleveland Clinic Marymount Hospital on above:Order Comment: Specimen Type: BLOOD SPECIMEN [facility] Address: [address] [place], [place] [address]Performed By: #### 32312-3, 2276-02 #### [facility] CLIA [id number] [address] [place] [address] [place] AMERICACO2 [Moles/Vol]27 mmol/L Xyyqmk90-94NtewqyetqCleveland Clinic Marymount Hospital on above:Order Comment: Specimen Type: BLOOD SPECIMEN [facility] Address: [address] [place], [place] [address]Performed By: #### 60189-3, 2276-02 #### [facility] CLIA [id number] [address] [place] [address] [place] AMERICACreatinine [Mass/Vol]1.33 mg/dLHigh0.58-0.96[facility] on above:Order Comment: Specimen Type: BLOOD SPECIMEN [facility] Address: [address] [place], [place] [address]Performed By: #### 66060-3, 6-4 #### [facility] CLIA [id number] [address] [place] [address] [place] AMERICACreatinine and Glomerular filtration rate.predicted panel (S/P/Bld)42 mL/min/1.73m???Low>=60[facility] on above:Order Comment: Specimen Type: BLOOD SPECIMEN [facility] Address: [address] [place], [place] [address]Result Comment: Estimated Glomerular Filtration Rate (eGFR) is [...] not accurately reflect actual GFR.Performed By: #### 97755-0, 2276-02 #### [facility] CLIA [id number] [address] [place] [address] [place] AMERICAGlucose [Mass/Vol]361 mg/dL Nqyr20-45WmkmunwoxCleveland Clinic Marymount Hospital on above:Order Comment: Specimen Type: BLOOD SPECIMEN [facility] Address: [address] [place], [place] [address]Result Comment: The [place] Diabetes Association (ADA) provides guidance for cutoff [...] Standards of Medical Care in Diabetes 2016, [place] [employer]. Diabetes Care. 2016.39(Suppl 1).Performed By: #### 25758-5, 2276-02 #### [facility] CLIA [id number] [address] [place], [place] [address] [place] AMERICAPotassium [Moles/Vol]4.7 mmol/LNormal3.7-5.1CParkview Health on above:Order Comment: Specimen Type: BLOOD SPECIMEN [facility] Address: [address] [place], [place] [address]Performed By: #### 14862-2, 2276-02 #### [facility] CLIA [id number] [address] [place] [address] [place] AMERICAProtein [Mass/Vol]6.4 g/dL Normal6.3-8.0[facility] on above:Order Comment: Specimen Type: BLOOD SPECIMEN [facility] Address: [address] [place], [place] [address]Performed By: #### 38854-8, 2276-02 #### [facility] CLIA [id number] [address] [place] [address] [place] AMERICASodium [Moles/Vol]137 mmol/L Dqicuv981-497HdswdimxdCleveland Clinic [facility]mount Hospital on above:Order Comment: Specimen Type: BLOOD SPECIMEN [facility] Address: [address] [place], [place] [address]Performed By: #### 02769-4, 2276-02 #### [facility] CLIA [id number] [address] [place] [address] [place] AMERICAUrea nitrogen [Mass/Vol]33 mg/dLHigh7-21[facility] on above:Order Comment: Specimen Type: BLOOD SPECIMEN [facility] Address: [address] [place], [place] [address]Performed By: #### 31867-6, 2276-02 #### [facility] CLIA [id number] [address] [place] [address] [place] AMERICAFerritin SerPl-mCncon 84-39-1552Nxsansoh [Mass/Vol]528.0 ng/wKJeqw08.7-205.1CCincinnati Shriners Hospital Comment on above:Order Comment: Specimen Type: BLOOD SPECIMEN [facility] Address: [address] [place], [place] [address]Performed By: #### 50038-9, 6-4 #### [facility] CLIA [id number] [address] [place] [address] [place] AMERICAIron and Iron binding capacity panelon 91-36-1758Akdk [Mass/Vol]64 ug/rYHqagvd43-489WldrfpqpjProtestant HospitalComment on above:Order Comment: Specimen Type: BLOOD SPECIMEN [facility] Address: [address] [place], [place] [address]Performed By: #### 90139-0, 4 #### [facility] CLIA [id number] [address] [place] [address] [place] AMERICAIron binding capacity [Mass/Vol]331 ug/qPPvxjzt719-449JybslappxProtestant HospitalComment on above:Order Comment: Specimen Type: BLOOD SPECIMEN [facility] Address: [address] [place], [place] [address]Performed By: #### 21207-2, 2275-4 #### [facility] CLIA [id number] [address] [place] [address] [place] AMERICAIron/TIBC [Molar ratio]19.3 %Rbbcft03.0-57.0[facility] on above:Order Comment: Specimen Type: BLOOD SPECIMEN [facility] Address: [address] [place], [place] [address]Performed By: #### 11348-3, 2275- #### [facility] CLIA [id number] [address] [place] [address] [place] AMERICARetics #on 10-07-2024 Reticulocytes (Bld) [#/Vol]0.12503 10*3/uLHigh0.018-0.100[facility] on above:Order Comment: Specimen Type: BLOOD SPECIMENOrdering Facility: [facility] Address:[address] [place], [place] [address]Performed By: #### 32702-2, 58820-2 ####[facility] LABCLIA [id number] [place], [place] [address]Ymbfcakjvhkos (Bld) [#/Vol]on 86-04-7479Qvvdnxqjucyjr/100 RBC (Bld)3.5 %High0.4-2.0[facility] on above:Order Comment: Specimen Type: BLOOD SPECIMENOrdering Facility: [facility] Address:[address] [place], [place] [address]Performed By: #### 86770-6, 98602-7 ####[facility] LABCLIA [id number] [place], [place] [address]Zraottddhq Visit Summaryon 22-71-1196Zptgyoocvq Visit SummaryAmbulatory Visit Summary ANH TEJEDA :1950 [...] Obesity due to excess calories Pickup at [facility]/pharmacy #0476 Unchanged allopurinol (allopurinol 100 mg Tab) 1 [...] physician if questions or concerns Pharmacy Information [facility]/pharmacy #[id number]: [address], [place] [id number] [phone] Allergies Tylenol with Codeine #3 (Upset stomach) [...] for choosing us (more content not included)...[facility]/Cl[facility] Noteon 09-29-2024 Gastroenterology Office/Clinic NoteGastroenterology [...] systems reviewed, negative except (more content not included)...[facility] HospitalComment on above:Result Comment: Electronically Signed By: Shanel DONG, Verónica Finch\.br\Date and Time Signed: 09/29/2410:08 ESTAlanine aminotransferase [Enzymatic activity/volume] in Serum or PlasmaOrdered By: Vinay Matta on 94-80-1160EBE [Catalytic activity/Vol]15 U/LNormal [facility] JacksonComment on above:Order Comment: A1C IS NOT DUE UNTIL OCTOBER.Performed By: #### MG, CMP, CBC, LIPID #### [facility] [address] [place] [address] USAALT [Catalytic activity/Vol]Alanine aminotransferase [Enzymatic activity/volume] in Serum or PlasmaHolzer Medical Center – JacksonAlbumin [Mass/volume] in Serum or Plasma by Bromocresol green (BCG) dye binding methoOrdered By: Vinay Bunting on 47-71-0013Nmrklin BCG dye [Mass/Vol] 4.0 g/dL3.5-5.7FJ.W. Ruby Memorial HospitalAlbumin BCG dye [Mass/Vol] Albumin [Mass/volume] in Serum or Plasma by Bromocresol green (BCG) dye binding metho3.5-5.7FJ.W. Ruby Memorial HospitalAlkaline phosphatase [Enzymatic activity/volume] in Serum or PlasmaOrdered By: Vinay Bunting on 05-02-9825MYB [Catalytic activity/Vol]141 U/YQwon88-739Ehqgtnzte[address] [place] [address] Comment on above:Order Comment: A1C IS NOT DUE UNTIL OCTOBER.Performed By: #### MG, CMP, CBC, LIPID #### [facility] [address] [place] [address] USAALP [Catalytic activity/Vol]Alkaline phosphatase [Enzymatic activity/volume] in Serum or VvoktjCggi66-532Uqkssgmdl90 Anderson StreetAspartate aminotransferase [Enzymatic activity/volume] in Serum or PlasmaOrdered By: Vinay Bunting on 28-92-4926UAD [Catalytic activity/Vol]16 U/L Tyyuyz53-24Cfhlwbreh72 West StreetComment on above:Order Comment: A1C IS NOT DUE UNTIL OCTOBER.Performed By: #### MG, CMP, CBC, LIPID #### [facility] [address] [place], [place] [address] USAAST [Catalytic activity/Vol]Aspartate aminotransferase [Enzymatic activity/volume] in Serum or Rubtow55-31Xbhfriabj72 West StreetAutomated basophil %Ordered By: Vinay Bunting on 20-85-1280Xpqvwsjem/100 WBC (Bld)0.5 %Normal.[facility] – JacksonComment on above:Order Comment: A1C IS NOT DUE UNTIL OCTOBER.Performed By: #### MG, CMP, CBC, LIPID #### [facility] [address] [place] [address] USAAutomated basophil countOrdered By: Vinay Bunting on 04-34-0634Dpnmzmkfj (Bld) [#/Vol]0.0 10*3/uLNormal0.0-0.2FJ.W. Ruby Memorial HospitalComment on above:Order Comment: A1C IS NOT DUE UNTIL OCTOBER. Result Comment: PERFORMED BY: [place] [address] PATHOLOGIST CYLINDER HONER THERESA MULLER M.D.Performed By: #### MG, CMP, CBC, LIPID #### [place] [address] USAAutomated blood monocyte countOrdered By: Vinay Bunting on 03-42-3202Gifksbqmh (Bld) [#/Vol]0.3 10*3/uLNormal0.0-0.8[facility] – JacksonComment on above:Order Comment: A1C IS NOT DUE UNTIL OCTOBER. Performed By: #### MG, CMP, CBC, LIPID #### [place] [address] USAAutomated eosinophil %Ordered By: Vinay Bunting on 03-56-2125Aixjaggkgtu/100 WBC (Bld)2.9 %Normal.[facility] Comment on above:Order Comment: A1C IS NOT DUE UNTIL OCTOBER.Performed By: #### MG, CMP, CBC, LIPID #### [place] [address] USAAutomated eosinophil countOrdered By: Vinay Bunting on 15-53-6834Noyvluxuold (Bld) [#/Vol]0.2 10*3/uLNormal0.0-0.45[facility] JacksonComment on above:Order Comment: A1C IS NOT DUE UNTIL OCTOBER. Performed By: #### MG, CMP, CBC, LIPID #### [place] [address] USAAutomated monocyte %Ordered By: Vinay Bunting on 74-61-6450Tbnsgbanz/100 WBC (Bld)5.0 %Normal.[facility] Comment on above:Order Comment: A1C IS NOT DUE UNTIL OCTOBER.Performed By: #### MG, CMP, CBC, LIPID #### [place] [address] USAAutomated neutrophil %Ordered By: Vinay Bunting on 06-22-7471Tlrbximqbtk/100 WBC (Bld)64.0 %Normal.[facility] – JacksonComment on above:Order Comment: A1C IS NOT DUE UNTIL OCTOBER.Performed By: #### MG, CMP, CBC, LIPID #### [facility] [address] [place] [address] USABasophils Auto (Bld) [#/Vol]Ordered By: Vinay Bunting on 08-35-2230Linxpgguz (Bld) [#/Vol]Automated basophil count0.0-0.2FJ.W. Ruby Memorial HospitalBasophils/100 WBC Auto (Bld)Ordered By: Vinay Bunting on 24-42-1101Hsfzsuizw/100 WBC (Bld)Automated basophil %.[facility] – JacksonBilirubin.total [Mass/volume] in Serum or PlasmaOrdered By: Vinay Bunting on 55-69-7068Wwasqjvgl [Mass/Vol]0.8 mg/dLNormal0.3-1.0[facility] – JacksonComment on above:Order Comment: A1C IS NOT DUE UNTIL OCTOBER.Performed By: #### MG, CMP, CBC, LIPID #### [facility] [address] [place] [address] USABilirubin [Mass/Vol]Bilirubin.total [Mass/volume] in Serum or Plasma0.3-1.0[facility] – JacksonCalcium [Mass/volume] in Serum or PlasmaOrdered By: Vinay Bunting on 64-72-8170Iqejpqc [Mass/Vol]9.1 mg/dL Normal8.6-10.3FJ.W. Ruby Memorial HospitalComment on above:Order Comment: A1C IS NOT DUE UNTIL OCTOBER.Performed By: #### MG, CMP, CBC, LIPID #### [facility] [address] [place] [address] USACalcium [Mass/Vol]Calcium [Mass/volume] in Serum or Plasma 8.6-10.3FJ.W. Ruby Memorial HospitalCarbon dioxide, total [Moles/volume] in Serum or PlasmaOrdered By: Vinay Bunting on 79-99-1559CB5 [Moles/Vol]31.3 mmol/LHigh21.0-31.0[facility] – JacksonComment on above:Order Comment: A1C IS NOT DUE UNTIL OCTOBER.Performed By: #### MG, CMP, CBC, LIPID #### [facility] [address] [place] [address] USACO2 [Moles/Vol]Carbon dioxide, total [Moles/volume] in Serum or JngltbRwtu84.0-31.0[facility] – JacksonChloride [Moles/volume] in Serum or PlasmaOrdered By: Vinay Matta on 09-19-2024 Chloride [Moles/Vol]101 mmol/FAtosfz07-859Bxiqiyizb[address] [place] [address] Comment on above:Order Comment: A1C IS NOT DUE UNTIL OCTOBER.Performed By: #### MG, CMP, CBC, LIPID #### [facility] [address] [place] [address] USAChloride [Moles/Vol]Chloride [Moles/volume] in Serum or Valxnz38-709XunbrlvmwHolzer Medical Center – JacksonCholesterol [Mass/volume] in Serum or PlasmaOrdered By: Vinay Matta on 08-18-4032Drgvykfzbem [Mass/Vol]132 mg/dL Ran069-331DndvuuretHolzer Medical Center – JacksonComment on above:Chol less than 200 mg/dl low riskChol 201-239 mg/dl borderline riskChol 240 mg/dl and greater high riskOrder Comment: A1C IS NOT DUE UNTIL OCTOBER.Result Comment: Chol less than 200 mg/dl low risk Chol 201-239 mg/dl borderline risk Chol 240 mg/dl and greater high riskPerformed By: #### MG, CMP, CBC, LIPID #### [facility] [address] [place] [address] USACholesterol [Mass/Vol]Cholesterol [Mass/volume] in Serum or CgbpliQhk262-433QvqrsgmfyHolzer Medical Center – JacksonComment on above:Chol less than 200 mg/dl low riskChol 201-239 mg/dl borderline riskChol 240 mg/dl and greater high riskCholesterol in HDL [Mass/volume] in Serum or PlasmaOrdered By: Vinay Matta on 81-13-2284Rwbhslbimgs in HDL [Mass/Vol]Serum or plasma high density lipoprotein (HDL) cholesterol jbpjmiwumai15-99MytqgnipkHolzer Medical Center – JacksonComment on above:HDL CHOL ATP-III CLASSIFICATION Cardiovascular RiskHDL > or equal to 60 mg/dL LOWHDL < 40 mg/dL HIGHCholesterol in LDL Calc [Mass/Vol] Ordered By: Vinay Matta on 16-19-2634Ifbwusutdfc in LDL [Mass/Vol]61 mg/dL 0-100[facility] – JacksonComment on above:LDL ATP III CLASSIFICATIONLDL less than 100 mg/dL OptimalLDL 100-129 mg/dL Near or above kzxfdayHLA315-504 mg/dL Borderline highLDL 160-189 mg/dL HighLDL greater than 189 mg/dL Very highCholesterol in LDL [Mass/Vol]Cholesterol in LDL [Mass/volume] in Serum or Plasma by calculation0[facility] – JacksonComment on above:LDL ATP III CLASSIFICATIONLDL less than 100 mg/dL OptimalLDL 100-129 mg/dL Near or above ruoekggNBG231-812 mg/dL Borderline highLDL 160-189 mg/dL HighLDL greater than 189 mg/dL Very highCholesterol in VLDL Calc [Mass/Vol] Ordered By: Vinay Matta on 87-20-2284Kiuvgkamhep in VLDL [Mass/Vol]30 mg/dL [facility] – JacksonCholesterol in VLDL [Mass/Vol]Cholesterol in VLDL [Mass/volume] in Serum or Plasma by calculationHolzer Medical Center – JacksonComplete Blood Count Auto Diffon 05-07-1251Wcvi Corpuscular HGB Conc35.0 g/bQDjjplh91.0-35.0[facility] Physician GroupComment on above:Order Comment: A1C IS NOT DUE UNTIL OCTOBER.Performed By: #### MG, CMP, CBC, LIPID #### [facility] [address] [place] [address] USANRBC%0.1 /100{WBC}Normal0-0.5[facility] Comment on above:Order Comment: A1C IS NOT DUE UNTIL OCTOBER.Performed By: #### MG, CMP, CBC, LIPID #### [facility] [address] [place] [address] USAComprehensive Metabolic Panelon 63-86-5000Jcdjefw [Mass/Vol]4.0 g/dLNormal3.5-5.7The [facility] Physician GroupComment on above: Order Comment: A1C IS NOT DUE UNTIL OCTOBER.Performed By: #### MG, CMP, CBC, LIPID #### [facility] [address] [place] [address] USAGFR/1.73 sq M.predicted MDRD (S/P/Bld) [Vol rate/Area] 32.214 mL/min/{1.73_m2}NormalThe [facility]redell [facility] Hospital Physician GroupComment on above:Order Comment: A1C IS NOT DUE UNTIL OCTOBER.Performed By: #### MG, CMP, CBC, LIPID #### [facility] [address] [place] [address] USACreatinine [Mass/volume] in Serum or PlasmaOrdered By: Vinay Bunting on 40-28-6240Qlqohwtkbw [Mass/Vol]1.65 mg/dLHigh0.60-1.20 [facility] – JacksonComment on above:Order Comment: A1C IS NOT DUE UNTIL OCTOBER.Performed By: #### MG, CMP, CBC, LIPID #### [facility] [address] [place] [address] USACreatinine [Mass/Vol]Creatinine [Mass/volume] in Serum or PlasmaHigh0.60-1.20[facility] – JacksonEosinophils Auto (Bld) [#/Vol]Ordered By: Vinay Bunting on 33-29-2926Jlmfufpmszc (Bld) [#/Vol] Automated eosinophil count0.0-0.45[facility] Eosinophils/100 WBC Auto (Bld)Ordered By: Vinay Bunting on 09-19-2024 Eosinophils/100 WBC (Bld)Automated eosinophil %.[facility] Center – JacksonErythrocyte distribution width Auto (RBC) [Ratio]Ordered By: Vinay Bunting on 84-24-7974Dtxixhkhqud distribution width (RBC) [Ratio]Erythrocyte distribution width [Ratio] by Automated mjlpyRamp05.9-15.3FJ.W. Ruby Memorial HospitalErythrocyte distribution width [Ratio] by Automated countOrdered By: Vinay Bunting on 75-66-5266Osnppzumhhd distribution width (RBC) [Ratio]16.3 %High11.9-15.3FJ.W. Ruby Memorial HospitalComment on above:Order Comment: A1C IS NOT DUE UNTIL OCTOBER.Performed By: #### MG, CMP, CBC, LIPID #### [facility] [address] [place] [address] USAErythrocytes [#/volume] in Blood by Automated countOrdered By: Vinay Matta on [id number] (Bld) [#/Vol]4.03 10*6/uLNormal3.60-5.00 [facility] JacksonComment on above:Order Comment: A1C IS NOT DUE UNTIL OCTOBER.Performed By: #### MG, CMP, CBC, LIPID #### [facility] [address] [place] [address] USAGlobulin Calc (S) [Mass/Vol]Ordered By: Vinay Matta on 15-28-7209Efwbjdeq (S) [Mass/Vol]Serum globulin measurement by calculation (mass/volume)[facility] – JacksonGlucose [Mass/volume] in Serum or PlasmaOrdered By: Vinay Matta on 10-58-1514Xouedci [Mass/Vol]195 mg/dLHigh 70-100[facility] – JacksonComment on above:ADA recommended reference rangeRandom Glucose Reference [...] By: #### MG, CMP, CBC, LIPID #### [facility] [address] [place] [address] USAGlucose [Mass/Vol]Glucose [Mass/volume] in Serum or Plasma Ifvu18-982ScywffkxjHolzer Medical Center – JacksonComment on above:ADA recommended reference rangeRandom Glucose Reference Range is dependent on time and content of last meal. Glucose of more than 200 mg/dL in a nonstressed, ambulatory subject supports the diagnosisof Diabetes Mellitus.Hematocrit Auto (Bld) [Volume fraction]Ordered By: Vinay Matta on 87-19-6024Rtwlohbwzd (Bld) [Volume fraction]Hematocrit [Volume Fraction] of Blood by Automated count34.0-46.4 [facility] – JacksonHematocrit [Volume Fraction] of Blood by Automated countOrdered By: Vinay Matta on 18-50-8811Nqnorxfagq (Bld) [Volume fraction]34.1 %Pngepc25.0-46.4FJ.W. Ruby Memorial HospitalComment on above: Order Comment: A1C IS NOT DUE UNTIL OCTOBER.Performed By: #### MG, CMP, CBC, LIPID #### [facility] [address] [place] [id number] USAHemoglobin [Mass/volume] in BloodOrdered By: Vinay Matta on 32-37-9298Swczmmklaf (Bld) [Mass/Vol]12.0 g/lFWooavo81.8-15.4 [facility] – JacksonComment on above:Order Comment: A1C IS NOT DUE UNTIL OCTOBER.Performed By: #### MG, CMP, CBC, LIPID #### [facility] [address] [place] [address] USAHemoglobin (Bld) [Mass/Vol]Hemoglobin [Mass/volume] in Blood11.8-15.4FJ.W. Ruby Memorial HospitalLeukocytes [#/volume] corrected for nucleated erythrocytes in Blood by Automated counOrdered By: Vinay Matta on 99-24-9794CQW corrected for nucl RBC Auto (Bld) [#/Vol]5.5 10*3/uL3.8-11.6 [facility] JacksonWBC corrected for nucl RBC Auto (Bld) [#/Vol] Leukocytes [#/volume] corrected for nucleated erythrocytes in Blood by Automated coun3.8-11.6FJ.W. Ruby Memorial HospitalLeukocytes [#/volume] in Blood by Automated countOrdered By: Vinay Matta on 22-75-6822QPG (Bld) [#/Vol]5.5 10*3/uLNormal3.8-11.6FJ.W. Ruby Memorial HospitalComment on above:Order Comment: A1C IS NOT DUE UNTIL OCTOBER.Performed By: #### MG, CMP, CBC, LIPID #### [facility] [address] [place] [address] USALipid Panelon 34-38-8399IUM Cholesterol,Gfvvmglllw72 mg/dL Normal0-100The [facility] Physician GroupComment on above:Order Comment: A1C IS NOT DUE UNTIL OCTOBER.Result Comment: LDL ATP III CLASSIFICATION LDL less than 100 mg/dL Optimal LDL 100-129 mg/dL Near or above optimal LDL 130-159 mg/dL Borderline high LDL 160-189 mg/dL High LDL greater than 189 mg/dL Very highPerformed By: #### MG, CMP, CBC, LIPID #### [facility] [address] [place] [id number] USATriglyceride w/Nnrdhq078 mg/dLHigh0-149The [facility] Physician GroupComment on above:Order Comment: A1C IS NOT DUE UNTIL OCTOBER. Result Comment: TRIG ATP III CLASSIFICATION TRIG less than 150 mg/dL Normal TRIG 150-199 mg/dL Borderline high TRIG 200-500 mg/dL High TRIG greater than 500 mg/dL Very high Standard traceable to the Center for Disease Conrtrol and Prevention (CDC) test method.Performed By: #### MG, CMP, CBC, LIPID #### [facility] [address] [place] [id number] USAVLDL VTVDJYHVCQZ49 mg/dLNoAdventHealth Hendersonville Physician King'S Daughters Medical CenterComment on above:Order Comment: A1C IS NOT DUE UNTIL OCTOBER.Performed By: #### MG, CMP, CBC, LIPID #### [place] [id number] USALymphocytes Auto (Bld) [#/Vol]Ordered By: Vinay Matta on 60-74-7045Pjfnepkpqbb (Bld) [#/Vol]Lymphocytes [#/volume] in Blood by Automated count1.00-4.8[facility] – JacksonLymphocytes [#/volume] in Blood by Automated countOrdered By: Vinay Matta on 70-08-3112Vadpmvruebd (Bld) [#/Vol]1.5 10*3/uLNormal1.00-4.8[facility] JacksonComment on above:Order Comment: A1C IS NOT DUE UNTIL OCTOBER.Performed By: #### MG, CMP, CBC, LIPID #### [facility] [address] [place] [id number] USALymphocytes/100 WBC Auto (Bld)Ordered By: Vinay Bunhomer on 38-83-2149Ksbzqkjuiit/100 WBC (Bld)Lymphocytes/100 leukocytes in Blood by Automated count.[facility] – JacksonLymphocytes/100 leukocytes in Blood by Automated countOrdered By: Vinay Bunting on 97-53-2068Tirqfmynjyb/100 WBC (Bld)27.6 %Normal.[facility] – JacksonComment on above:Order Comment: A1C IS NOT DUE UNTIL OCTOBER.Performed By: #### MG, CMP, CBC, LIPID #### [facility] [address] Auto (RBC) [Entitic mass]Ordered By: Vinay Bunting on 29-39-1754FAG (RBC) [Entitic mass]MCH [Entitic mass] by Automated count24.7-34.3 [facility] [Entitic mass] by Automated countOrdered By: Vinay Bunting on 47-51-5505LAF (RBC) [Entitic mass]29.7 djVspzxh58.7-34.3 [facility] – JacksonComment on above:Order Comment: A1C IS NOT DUE UNTIL OCTOBER.Performed By: #### MG, CMP, CBC, LIPID #### [facility] [address] [place] [id number] [facility] Auto (RBC) [Mass/Vol]Ordered By: Vinay Bunting on 77-05-7908OSQR (RBC) [Mass/Vol]35.0 g/dL32.0-35.0WVUMed[facility] Barnesville HospitalHC (RBC) [Mass/Vol]MCHC [Mass/volume] by Automated count32.0-35.0 [facility] Auto (RBC) [Entitic vol]Ordered By: Vinay Bunting on 24-51-3222LYY (RBC) [Entitic vol]MCV [Entitic volume] by Automated -464AngjtbeklWVUMedicine Barnesville HospitalV [Entitic volume] by Automated countOrdered By: Vinay Bunting on 41-17-9761WGF (RBC) [Entitic vol]84.7 fL Rytora44-028VmdhrmrblHolzer Medical Center – JacksonComment on above:Order Comment: A1C IS NOT DUE UNTIL OCTOBER.Performed By: #### MG, CMP, CBC, LIPID #### [facility] [address] [place] [address] USAMagnesium [Mass/volume] in Serum or PlasmaOrdered By: Vinay Bunting on 45-44-5084Botkwprxb [Mass/Vol]1.3 mg/dLLow1.9-2.7FJ.W. Ruby Memorial HospitalComment on above:Order Comment: A1C IS NOT DUE UNTIL OCTOBER.Performed By: #### MG, CMP, CBC, LIPID #### [facility] [address] [place] [address] USAMagnesium [Mass/Vol]Magnesium [Mass/volume] in Serum or PlasmaLow1.9-2.7FJ.W. Ruby Memorial HospitalMonocytes Auto (Bld) [#/Vol] Ordered By: Vinay Bunting on 67-32-3261Fuaasowxr (Bld) [#/Vol]Automated blood monocyte count0.0-0.8[facility] – JacksonMonocytes/100 WBC Auto (Bld)Ordered By: Vinay Bunting on 87-40-2433Oxlqzcqdn/100 WBC (Bld)Automated monocyte %.[facility] – JacksonNeutrophils Auto (Bld) [#/Vol] Ordered By: Vinay Bunting on 41-60-0979Xwzjhaabkrl (Bld) [#/Vol]Neutrophils [#/volume] in Blood by Automated count1.8-7.7FJ.[facility] Neutrophils [#/volume] in Blood by Automated countOrdered By: Vinay Bunting on 49-03-2125Gwliuzgevbv (Bld) [#/Vol]3.5 10*3/uLNormal1.8-7.7FJ.W. Ruby Memorial HospitalComment on above:Order Comment: A1C IS NOT DUE UNTIL OCTOBER. Performed By: #### MG, CMP, CBC, LIPID #### [facility] [address] [place] [address] USANeutrophils/100 WBC Auto (Bld)Ordered By: Vinay Bunting on 42-69-2007Scedicwpsyu/100 WBC (Bld)Automated neutrophil %.[facility] – JacksonNo Panel InformationOrdered By: Vinay Bunting on 09-19-2024 Estimated GFR (CKD-EPI)32.214 mL/MinHolzer Medical Center – JacksonPharmacy Creatinine Clearance (ChemN/AFJ.W. Ruby Memorial HospitalNucleated erythrocytes [Presence] in Blood by Automated countOrdered By: Vinay Bunting on 54-75-2178Cslpqeygy RBC Auto Ql (Bld)0.1 /100{WBC}0-0.5FJ.W. Ruby Memorial HospitalNucleated RBC Auto Ql (Bld)Nucleated erythrocytes [Presence] in Blood by Automated count0-0.5FJ.W. Ruby Memorial HospitalPlatelet mean volume Auto (Bld) [Entitic vol]Ordered By: Vinay Bunting on 04-23-1452Wtcfkohz mean volume (Bld) [Entitic vol]Platelet mean volume [Entitic volume] in Blood by Automated count6.3-10.7FJ.W. Ruby Memorial HospitalPlatelet mean volume [Entitic volume] in Blood by Automated countOrdered By: Vinay Bunting on 01-52-1148Oaistuau mean volume (Bld) [Entitic vol]7.2 fLNormal6.3-10.7FJ.W. Ruby Memorial HospitalComment on above:Order Comment: A1C IS NOT DUE UNTIL OCTOBER.Performed By: #### MG, CMP, CBC, LIPID #### [facility] [address] [place] [id number] USAPlatelets Auto (Bld) [#/Vol]Ordered By: Vinay Bunting on 23-49-8236Vrpgpmzki (Bld) [#/Vol]Platelets [#/volume] in Blood by Automated ahhsyJbl820-246[address] [place], [place] [address]Platelets [#/volume] in Blood by Automated countOrdered By: Vinay Bunting on 84-17-2015Fpdthbxru (Bld) [#/Vol] 145 10*3/dYQrw824-397Zhtycggoo[address] [place], [place] [address]Comment on above:Order Comment: A1C IS NOT DUE UNTIL OCTOBER.Performed By: #### MG, CMP, CBC, LIPID #### [facility] [address] [place] [address] USAPotassium [Moles/volume] in Serum or PlasmaOrdered By: Vinay Bunting on 34-12-4695Omvalbgjr [Moles/Vol]5.1 mmol/LNormal3.5-5.1 [facility] JacksonComment on above:Order Comment: A1C IS NOT DUE UNTIL OCTOBER.Performed By: #### MG, CMP, CBC, LIPID #### [facility] [address] [place] [address] USAPotassium [Moles/Vol]Potassium [Moles/volume] in Serum or Plasma3.5-5.1FJ.W. Ruby Memorial HospitalProtein [Mass/volume] in Serum or PlasmaOrdered By: Vinay Bunting on 68-29-7916Ngtqltz [Mass/Vol]6.2 g/dLLow 6.4-8.9[facility] – JacksonComment on above:Order Comment: A1C IS NOT DUE UNTIL OCTOBER.Performed By: #### MG, CMP, CBC, LIPID #### [facility] [address] [place] [address] USAProtein [Mass/Vol]Protein [Mass/volume] in Serum or Plasma Low6.4-8.9[facility] – JacksonRBC Auto (Bld) [#/Vol]Ordered By: Vinay Bunting on 89-19-1063LUT (Bld) [#/Vol]Erythrocytes [#/volume] in Blood by Automated count3.60-5.00[facility] Hospitalerum globulin measurement by calculation (mass/volume)Ordered By: Vinay Bunting on 09-19-2024 Globulin (S) [Mass/Vol]2.2 g/dLNormalHolzer Medical Center – JacksonComment on above:Order Comment: A1C IS NOT DUE UNTIL OCTOBER.Performed By: #### MG, CMP, CBC, LIPID #### [facility] [address] [place] [address] USASerum or plasma albumin/globulin mass ratioOrdered By: Vinay Bunting on 95-05-0903Ggpcyzb/Globulin [Mass ratio]1.8 {ratio}Normal [facility] JacksonComment on above:Order Comment: A1C IS NOT DUE UNTIL OCTOBER.Performed By: #### MG, CMP, CBC, LIPID #### [facility] [address] [place] [address] USAAlbumin/Globulin [Mass ratio]Serum or plasma albumin/globulin mass ratioMercy Health Clermont Hospitalerum or plasma anion gap determinationOrdered By: Vinay Matta on 79-64-5884Iulix gap [Moles/Vol]11.8 mmol/LNormal6.0-15.0[facility] JacksonComment on above:Order Comment: A1C IS NOT DUE UNTIL OCTOBER.Performed By: #### MG, CMP, CBC, LIPID #### [facility] [address] [place] [address] USAAnion gap [Moles/Vol]Serum or plasma anion gap determination6.0-15.0[facility] Hospitalerum or plasma high density lipoprotein (HDL) cholesterol measurementOrdered By: Vinay Matta on 88-17-7455Mstkqpavdgm in HDL [Mass/Vol]41 mg/aNSszzvr02-54SjdrqpainHolzer Medical Center – JacksonComment on above:HDL CHOL ATP-III CLASSIFICATION Cardiovascular RiskHDL > or equal to 60 mg/dL LOWHDL < 40 mg/dL HIGHOrder Comment: A1C IS NOT DUE UNTIL OCTOBER.Result Comment: HDL CHOL ATP-III CLASSIFICATION Cardiovascular Risk HDL > or equal to 60 mg/dL LOW HDL < 40 mg/dL HIGHPerformed By: #### MG, CMP, CBC, LIPID #### [facility] [address] [place] [address] USASerum or plasma total cholesterol/high density lipoprotein (HDL) cholesterol mass ratOrdered By: Vinay Matta on 09-19-2024 Cholesterol.total/Cholesterol in HDL [Mass ratio]3.2 {ratio}Normal<5.0[facility] – JacksonComment on above:Order Comment: A1C IS NOT DUE UNTIL OCTOBER.Result Comment: PERFORMED BY: [facility] [address] [place] [address] PATHOLOGIST CYLINDER HONER THERESA MULLER M.D.Performed By: #### MG, CMP, CBC, LIPID #### [facility] [address] [place] [address] USACholesterol.total/Cholesterol in HDL [Mass ratio]Serum or plasma total cholesterol/high density lipoprotein (HDL) cholesterol mass rat<5.0 [facility] Hospitalodium [Moles/volume] in Serum or PlasmaOrdered By: Vinay Bunting on 34-11-6946Ljvnvn [Moles/Vol]139 mmol/ZOjplkb717-626 [facility] JacksonComment on above:Order Comment: A1C IS NOT DUE UNTIL OCTOBER.Performed By: #### MG, CMP, CBC, LIPID #### [facility] [address] [place] [address] USASodium [Moles/Vol]Sodium [Moles/volume] in Serum or Plasma 136-145[facility] – JacksonTriglyceride [Mass/volume] in Serum or PlasmaOrdered By: Vinay Bunting on 64-52-4800Ovvcmabptbkg [Mass/Vol]151 mg/dL High0-149[facility] – JacksonComment on above:TRIG ATP III CLASSIFICATIONTRIG less than 150 mg/dL NormalTRIG 150-199 mg/dL Borderline highTRIG 200-500 mg/dL High TRIG greater than 500 mg/dL Very highStandard traceable to the Center for Disease Conrtrol and Prevention (CDC) test method. Triglyceride [Mass/Vol]Triglyceride [Mass/volume] in Serum or PlasmaHigh0-149 [facility] – JacksonComment on above:TRIG ATP III CLASSIFICATIONTRIG less than 150 mg/dL NormalTRIG 150-199 mg/dL Borderline highTRIG 200-500 mg/dL High TRIG greater than 500 mg/dL Very highStandard traceable to the Center for Disease Conrtrol and Prevention (CDC) test method. Urea nitrogen [Mass/volume] in Serum or PlasmaOrdered By: Vinay Bunting on 60-41-5627Mury nitrogen [Mass/Vol]33 mg/dLHigh7-25[facility] JacksonComment on above:Order Comment: A1C IS NOT DUE UNTIL OCTOBER.Performed By: #### MG, CMP, CBC, LIPID #### [facility] [address] [place] [address] USAUrea nitrogen [Mass/Vol]Urea nitrogen [Mass/volume] in Serum or PlasmaWeirton Medical Center7-25[facility] – JacksonWBC Auto (Bld) [#/Vol] Ordered By: Vinay Bunting on 91-30-8922UXZ (Bld) [#/Vol]Leukocytes [#/volume] in Blood by Automated count3.8-11.6FJ.W. Ruby Memorial HospitalAlanine aminotransferase [Enzymatic activity/volume] in Serum or PlasmaOrdered By: Obaydah Daromar on 37-49-7551DUH [Catalytic activity/Vol]17 U/L7-52[facility] – JacksonAlbumin [Mass/volume] in Serum or Plasma by Bromocresol green (BCG) dye binding methoOrdered By: Obaydah Daromar on 65-29-7901Kssdqiw BCG dye [Mass/Vol]3.9 g/dL3.5-5.7FJ.W. Ruby Memorial HospitalAlkaline phosphatase [Enzymatic activity/volume] in Serum or PlasmaOrdered By: Obaydah Daromar on 62-01-7326POO [Catalytic activity/Vol]122 U/RWxgg35-387VzzxncsqyHolzer Medical Center – JacksonAspartate aminotransferase [Enzymatic activity/volume] in Serum or PlasmaOrdered By: Obaydah Daromar on 04-83-2339MPH [Catalytic activity/Vol]17 U/B73-31BaefvsweaHolzer Medical Center – JacksonBasophils Auto (Bld) [#/Vol]Ordered By: Obaydah Daromar on 14-43-6624Zaardiruq (Bld) [#/Vol]0.0 10*3/uL0.0-0.2FJ.W. Ruby Memorial HospitalBasophils/100 WBC Auto (Bld) Ordered By: Obaydah Daromar on 50-97-9955Znzmkylyd/100 WBC (Bld)0.4 %.[facility] – JacksonBilirubin.total [Mass/volume] in Serum or PlasmaOrdered By: Obaydah Daromar on 87-30-9181Jryyxccof [Mass/Vol]0.5 mg/dL0.3-1.0[facility] – JacksonCalcium [Mass/volume] in Serum or PlasmaOrdered By: Obaydah Daromar on 28-09-7844Jfcuupn [Mass/Vol]9.2 mg/dL8.6-10.3FJ.W. Ruby Memorial HospitalCarbon dioxide, total [Moles/volume] in Serum or Plasma Ordered By: Obaydah Daromar on 60-18-1229VS7 [Moles/Vol]24.9 mmol/L21.0-31.0 [facility] – JacksonChloride [Moles/volume] in Serum or Plasma Ordered By: Comfort Monteiro on 48-96-5564Sqlqdmus [Moles/Vol]104 mmol/L98-107 [facility] JacksonCreatinine [Mass/volume] in Serum or Plasma Ordered By: Comfort Ratliffomar on 60-23-1589Qxtoqhjskn [Mass/Vol]1.55 mg/dLHigh 0.60-1.20[facility] – JacksonEosinophils Auto (Bld) [#/Vol]Ordered By: Dianne Gaudencioomar on 59-76-1751Xqzrmjewtuq (Bld) [#/Vol]0.1 10*3/uL0.0-0.45 [facility] JacksonEosinophils/100 WBC Auto (Bld)Ordered By: Dianne Gaudencioomar on 42-52-4594Oxhluvxfxtl/100 WBC (Bld)2.7 %.[facility] – JacksonErythrocyte distribution width Auto (RBC) [Ratio]Ordered By: Comfort Ratliffomar on 70-62-5364Sifuzzgubxf distribution width (RBC) [Ratio]16.3 % High11.9-15.3FJ.W. Ruby Memorial HospitalGlobulin Calc (S) [Mass/Vol] Ordered By: Comfort Monteiro on 25-71-8797Shgupjes (S) [Mass/Vol]2.4 g/dL [facility] – JacksonGlucose Glucometer (BldC) [Mass/Vol]Ordered By: Comfort Ratliffomajosse on 42-75-6682Ecxpaxc [Mass/Vol]239 mg/dLHolzer Medical Center – JacksonComment on above:Random Glucose Reference Range is dependent on time and content of last meal. Glucose of more than 200 mg/dL in a nonstressed, ambulatory subject supports the diagnosis of Diabetes Mellitus.Glucose [Mass/volume] in Serum or PlasmaOrdered By: Comfort Ratliffomar on 61-94-2700Snierqk [Mass/Vol]142 mg/nVFqyz00-688LvojwmnfrHolzer Medical Center – JacksonComment on above: Delta: 334 on 07/21/24-1025ADA recommended reference rangeRandom Glucose Reference Range is dependent on time and content of last meal. Glucose of more than 200 mg/dL in a nonstressed, ambulatory subject supports the diagnosis of Diabetes Mellitus.Hematocrit Auto (Bld) [Volume fraction]Ordered By: Comfort Monteiro on 86-61-3525Sgvqxppdha (Bld) [Volume fraction]32.0 %Low34.0-46.4 [facility] – JacksonHemoglobin [Mass/volume] in BloodOrdered By: Comfort Ontiverosr on 26-58-9053Gbrbcgogdz (Bld) [Mass/Vol]11.3 g/dLLow11.8-15.4 [facility] – JacksonLeukocytes [#/volume] corrected for nucleated erythrocytes in Blood by Automated counOrdered By: Comfort Monteiro on 07-22-2024 WBC corrected for nucl RBC Auto (Bld) [#/Vol]5.4 10*3/uL3.8-11.6FJ.W. Ruby Memorial HospitalLymphocytes Auto (Bld) [#/Vol]Ordered By: Comfort Ratliffomar on 14-16-1750Jxwlasctxku (Bld) [#/Vol]1.7 10*3/uL1.00-4.8[facility] – JacksonLymphocytes/100 WBC Auto (Bld)Ordered By: Obalissa Ratliffomar on 75-86-9980Xieiapfbslr/100 WBC (Bld)31.4 %.[facility] HospitalH Auto (RBC) [Entitic mass]Ordered By: Comfort Ratliffomajosse on 68-30-6344PIV (RBC) [Entitic mass]30.3 pg24.7-34.3FJ.W. Ruby Memorial HospitalMCHC Auto (RBC) [Mass/Vol]Ordered By: Comfort Ratliffomar on 19-81-9591YBEJ (RBC) [Mass/Vol]35.3 g/yQOtvq33.0-35.0[facility] – JacksonMCV Auto (RBC) [Entitic vol] Ordered By: Comfort Ratilffomar on 03-39-4287QQI (RBC) [Entitic vol]85.8 vD64-738 [facility] – JacksonMonocytes Auto (Bld) [#/Vol]Ordered By: Comfort Ratliffomar on 32-84-7552Qumblazlr (Bld) [#/Vol]0.3 10*3/uL0.0-0.8[facility] – JacksonMonocytes/100 WBC Auto (Bld)Ordered By: Comfort Ratliffomar on 42-56-6268Ccomtxffv/100 WBC (Bld)5.5 %.[facility] Neutrophils Auto (Bld) [#/Vol]Ordered By: Obalissa Ratliffomar on 07-22-2024 Neutrophils (Bld) [#/Vol]3.3 10*3/uL1.8-7.7FJ.[facility]. [facility] Neutrophils/100 WBC Auto (Bld)Ordered By: Obalsisa Ratliffomar on 07-22-2024 Neutrophils/100 WBC (Bld)60.0 %.[facility] – JacksonNo Panel InformationOrdered By: Comfort Monteiro on 45-61-7257Kvusxbfnb GFR (CKD-EPI) 34.723 mL/MinHolzer Medical Center – JacksonPharmacy Creatinine Clearance (Chem35.10[facility] – JacksonNucleated erythrocytes [Presence] in Blood by Automated countOrdered By: Comfort Monteiro on 76-45-9250Llgcgaajl RBC Auto Ql (Bld)0.1 /100{WBC}0-0.5FJ.W. Ruby Memorial HospitalPlatelet mean volume Auto (Bld) [Entitic vol]Ordered By: Comfort Monteiro on 27-39-7717Zznlnygf mean volume (Bld) [Entitic vol]7.3 fL6.3-10.7FJ.[facility]. [facility] Platelets Auto (Bld) [#/Vol]Ordered By: Comfort Ratliffomar on 25-73-6913Amibqkbvm (Bld) [#/Vol]141 10*3/aCFmk418-679DbpqxmmumHolzer Medical Center – JacksonPotassium [Moles/volume] in Serum or PlasmaOrdered By: Comfort Ontiverosr on 07-22-2024 Potassium [Moles/Vol]4.0 mmol/L3.5-5.1FJ.W. Ruby Memorial HospitalProtein [Mass/volume] in Serum or PlasmaOrdered By: Diannedulce maria Ratliffomar on 37-04-7048Xdzzeay [Mass/Vol]6.3 g/dLLow6.4-8.9[facility] – JacksonRBC Auto (Bld) [#/Vol]Ordered By: Obberyldadulce maria Daromar on 85-25-1738LNK (Bld) [#/Vol]3.73 10*6/uL 3.60-5.00[facility] Hospitalerum or plasma albumin/globulin mass ratioOrdered By: Obberyldadulce maria Daromar on 80-42-7539Oulugmj/Globulin [Mass ratio]1.6 {ratio}[facility] Hospitalerum or plasma anion gap determination Ordered By: Obberyldadulce maria Ratliffomar on 99-40-4237Pkmzq gap [Moles/Vol]16.1 mmol/LHigh 6.0-15.0[facility] Hospitalodium [Moles/volume] in Serum or PlasmaOrdered By: Obberyldadulce maria Daromar on 86-21-8828Baynlx [Moles/Vol]141 mmol/L 136-145[facility] – JacksonUrea nitrogen [Mass/volume] in Serum or PlasmaOrdered By: Obberyldadulce maria Daromar on 89-69-6694Vwew nitrogen [Mass/Vol]37 mg/dL High7-25[facility] – JacksonWBC Auto (Bld) [#/Vol]Ordered By: Obberyldadulce maria Ratliffomar on 51-42-2883KLF (Bld) [#/Vol]5.4 10*3/uL3.8-11.6FJ.W. Ruby Memorial HospitalActivated partial thromboplastin time (aPTT) in platelet poor plasma by coagulation aOrdered By: Bakari Barboza on 52-04-5412xXXE Coag (PPP) [Time]35.2 s25.1-36.5FJ.W. Ruby Memorial HospitalComment on above:A hematocrit value greater than 55% may lead to inaccurate results in coagulation testing. Patientshaving hematocrit values >55% require a special collection tube for coagulation studies. Please contact the laboratory at [phone] for redraw instructions.Alanine aminotransferase [Enzymatic activity/volume] in Serum or PlasmaOrdered By: Bakari Barboza on 54-05-7787FBR [Catalytic activity/Vol] 18 U/L7-52[facility] – JacksonAlbumin [Mass/volume] in Serum or Plasma by Bromocresol green (BCG) dye binding methoOrdered By: Bakari Barboza on 93-03-9800Mgzkkvn BCG dye [Mass/Vol]4.1 g/dL3.5-5.7FJ.W. Ruby Memorial HospitalAlkaline phosphatase [Enzymatic activity/volume] in Serum or PlasmaOrdered By: Bakari Barboza on 65-54-5773BFK [Catalytic activity/Vol]147 U/GRour40-725 [facility] – JacksonAspartate aminotransferase [Enzymatic activity/volume] in Serum or PlasmaOrdered By: Bakari Barboza on 60-65-5902PUO [Catalytic activity/Vol]17 U/I39-56FtbprdsjdHolzer Medical Center – JacksonBasophils Auto (Bld) [#/Vol]Ordered By: Bakari Barboza on 87-91-4760Oiqupproi (Bld) [#/Vol] 0.0 10*3/uL0.0-0.2FJ.W. Ruby Memorial HospitalBasophils/100 WBC Auto (Bld) Ordered By: Bakari Barboza on 71-43-4918Vcmfeuixu/100 WBC (Bld)0.7 %.[facility] – JacksonBilirubin Test strip Ql (U)Ordered By: Bakari Barboza on 90-42-5770Fxbkpmsbz Ql (U)NegativeNegativeHolzer Medical Center – Jackson Bilirubin.direct [Mass/volume] in Serum or PlasmaOrdered By: Bakari Barboza on 38-21-1893Zqgcsplta.direct [Mass/Vol]0.10 mg/dL0.03-0.18FJ.W. Ruby Memorial HospitalBilirubin.total [Mass/volume] in Serum or PlasmaOrdered By: Bakari Barboza on 85-79-0686Dljesiuhx [Mass/Vol]0.4 mg/dL0.3-1.0[facility] – JacksonCOVID CepheidOrdered By: Comfort Monteiro on 85-88-4209CPHL-CoV-2 (COVID-19) Ab IA QlNegativeNegativeHolzer Medical Center – JacksonComment on above:This is a duplicate Cepheid Xpert Xpress CoV-2/Flu/RSV Plus RNA by RT-PCR result to be used for statistical tracking purpose only.SARS-CoV-2 (COVID-19) RNA DIPESH+probe Ql (Unsp spec)[facility] – JacksonCalcium [Mass/volume] in Serum or PlasmaOrdered By: Bakari Barboza on 96-07-1438Rdyvnko [Mass/Vol]9.3 mg/dL8.6-10.3FJ.W. Ruby Memorial HospitalCarbon dioxide, total [Moles/volume] in Serum or PlasmaOrdered By: Bakari Barboza on 93-12-0113TP8 [Moles/Vol]26.3 mmol/L21.0-31.0[facility] – JacksonChloride [Moles/volume] in Serum or PlasmaOrdered By: Bakari Barboza on 50-82-8414Uuipmcye [Moles/Vol]103 mmol/U22-832IqqbejgvpHolzer Medical Center – JacksonCholesterol [Mass/volume] in Serum or PlasmaOrdered By: Comfort Monteiro on 07-21-2024 Cholesterol [Mass/Vol]112 mg/fCCxi135-266ApexmwpikHolzer Medical [facility] Comment on above:Chol less than 200 mg/dl low riskChol 201-239 mg/dl borderline riskChol 240 mg/dl and greater high riskCholesterol in LDL Calc [Mass/Vol] Ordered By: Comfort Monteiro on 96-31-1065Foewbwgmpau in LDL [Mass/Vol]46 mg/dL 0-100[facility] JacksonComment on above:LDL ATP III CLASSIFICATIONLDL less than 100 mg/dL OptimalLDL 100-129 mg/dL Near or above tmwrvdiXYE400-701 mg/dL Borderline highLDL 160-189 mg/dL HighLDL greater than 189 mg/dL Very highCholesterol in VLDL Calc [Mass/Vol]Ordered By: Comfort Monteiro on 97-91-0222Zgynsxmflzv in VLDL [Mass/Vol]26 mg/dLHolzer Medical Center – JacksonColor Auto (U)Ordered By: Bakari Barboza on 32-89-4442Yomlx (U) Light-yellowYellowHolzer Medical Center – JacksonCreatine kinase [Enzymatic activity/volume] in Serum or PlasmaOrdered By: Bakari Barboza on 38-32-2482KR [Catalytic activity/Vol]56 U/Y18-582XzyewbadvHolzer Medical Center – JacksonCreatinine [Mass/volume] in Serum or PlasmaOrdered By: Bakari Barboza on 16-03-1857Oruzrmhpnb [Mass/Vol]1.64 mg/dLHigh0.60-1.20[facility] JacksonEosinophils Auto (Bld) [#/Vol]Ordered By: Bakari Barboza on 16-91-0956Wxjnrmamkjb (Bld) [#/Vol] 0.1 10*3/uL0.0-0.45[facility] JacksonEosinophils/100 WBC Auto (Bld)Ordered By: Bakari Barboza on 73-68-3830Yqcazdaorpy/100 WBC (Bld)2.5 %. [facility] JacksonErythrocyte distribution width Auto (RBC) [Ratio]Ordered By: Bakari Barboza on 72-01-5734Tazkbixcpqe distribution width (RBC) [Ratio]16.4 %High11.9-15.3FJ.W. Ruby Memorial HospitalGlobulin Calc (S) [Mass/Vol]Ordered By: Bakari Barboza on 55-21-0166Mdczvshs (S) [Mass/Vol]2.5 g/dL [facility] JacksonGlucose [Mass/volume] in Serum or PlasmaOrdered By: Bakari Barboza on 53-94-7801Zkqcipe [Mass/Vol]334 mg/bATulw71-439QuuohtowrHolzer Medical Center – JacksonComment on above:ADA recommended reference rangeRandom Glucose Reference Range is dependent on time and content of last meal. Glucose of more than 200 mg/dL in a nonstressed, ambulatory subject supports the diagnosisof Diabetes Mellitus.Glucose [Mass/volume] in Urine by Test strip Ordered By: Bakair Barboza on 95-14-0273Hrtlfcl Test strip (U) [Mass/Vol]>=1000 mg/dLHighNormalHolzer Medical Center – JacksonGlucose mean value [Mass/volume] in Blood Estimated from glycated hemoglobinOrdered By: Comfort Monteiro on 39-16-7094Bqxndsr glucose Estimated from glycated hemoglobin (Bld) [Mass/Vol]174 mg/dLHolzer Medical Center – JacksonHematocrit Auto (Bld) [Volume fraction] Ordered By: Bakari Barboza on 78-61-7925Xaewbtmoid (Bld) [Volume fraction]31.7 %Low 34.0-46.4FJ.W. Ruby Memorial HospitalHemoglobin A1c percentageOrdered By: Comfort Monteiro on 50-50-6601HfT2v (Bld) [Mass fraction]7.7 %High4.3-5.6 [facility] JacksonComment on above:Increased risk for diabetes: 5.7 - 6.4diabetes: >6.4glycemic control for adults with diabetes: <7.0 Hemoglobin Test strip Ql (U)Ordered By: Bakari Barboza on 95-31-2405Nlnusipubr Ql (U)NegativeNegGuernsey Memorial HospitalHemoglobin [Mass/volume] in BloodOrdered By: Bakari Barboza on 19-97-9194Mmrqqnxggt (Bld) [Mass/Vol]11.0 g/dL Low11.8-15.4FJ.W. Ruby Memorial HospitalINR in Platelet poor plasma by Coagulation assayOrdered By: Bakari Barboza on 63-80-0227QUA Coag (PPP) [Relative time]1.1 {INR}[facility] JacksonComment on above:INR Therapeutic Range A) Pre- and [...] strip Ql (U)Ordered By: Bakari Barboza on 19-69-2899Ylmqapr Ql (U)Negative NegativeHolzer Medical Center – JacksonLeukocyte esterase [Presence] in Urine by Test stripOrdered By: Bakari Barboza on 82-85-2006Mlvzszcnx esterase Test strip Ql (U)NegativeNegativeHolzer Medical Center – JacksonLeukocytes [#/volume] corrected for nucleated erythrocytes in Blood by Automated counOrdered By: Bakari Barboza on 07-86-5754FUZ corrected for nucl RBC Auto (Bld) [#/Vol]4.8 10*3/uL 3.8-11.6FJ.W. Ruby Memorial HospitalLymphocytes Auto (Bld) [#/Vol]Ordered By: Bakari Barboza on 63-93-7941Chdnporwtlu (Bld) [#/Vol]1.2 10*3/uL1.00-4.8 [facility] JacksonLymphocytes/100 WBC Auto (Bld)Ordered By: Bakari Barboza on 31-71-0671Kpurpuxebqv/100 WBC (Bld)24.6 %.[facility] Auto (RBC) [Entitic mass]Ordered By: Bakari Barboza on 41-75-5893BCX (RBC) [Entitic mass]30.2 pg24.7-34.3FOhio State East HospitalHC Auto (RBC) [Mass/Vol]Ordered By: Bakari Barboza on 90-90-9757QPWK (RBC) [Mass/Vol]34.8 g/dL32.0-35.0WVUMedicine Barnes[facility] HospitalV Auto (RBC) [Entitic vol] Ordered By: Bakari Barboza on 26-10-5462NKX (RBC) [Entitic vol]86.7 jG77-177 [facility] JacksonMagnesium [Mass/volume] in Serum or Plasma Ordered By: Ottoniel Bland on 81-50-9333Hbxgixaup [Mass/Vol]1.7 mg/dLLow1.9-2.7 [facility] JacksonMonocyte distribution width [Entitic volume] in Blood by AutomatedOrdered By: Bakari Barboza on 68-88-1369Xgzjhnhq distribution width Auto (Bld) [Entitic vol]20.33 %High0.00-20.00[facility] JacksonComment on above:For adults in ED, MDW > 20.0 may be associated with a higher risk of sepsis during the first 12 hrs of hospital admissionMonocytes Auto (Bld) [#/Vol]Ordered By: Bakari Barboza on 49-65-0417Giibrmjdz (Bld) [#/Vol] 0.2 10*3/uL0.0-0.8[facility] JacksonMonocytes/100 WBC Auto (Bld) Ordered By: Bakari Barboza on 63-09-2445Klqbplzid/100 WBC (Bld)4.0 %.[facility] JacksonMuscle specific receptor tyrosine kinase Ab [Units/volume] in Serum by ImmunoassayOrdered By: Ottoniel Bland on 07-21-2024 Muscle specific receptor tyrosine kinase Ab IA Qn (S)<1.0 U/mL.[facility] JacksonComment on above:Reference Range: Negative: <1.0 Positive: 1.0 [...] J Autoimmunity 2014;52:90-100.2. Fred MG etal. PNAS 2013;110(51);19597-76690.3. Enrique E et al. Neurology 2006;67:505-507.This test was developed and its performance characteristicsdetermined by [employer]. It has not been cleared or approvedby the Food and Drug Administration.Performed at: [facility] [address] [id number] Director: Trae Olivarez MD, Phone: [phone] peptide B [Mass/Vol]Ordered By: Bakari Barboza on 07-21-2024 Natriuretic peptide B (Bld) [Mass/Vol]42.0 pg/mL5-100[facility] JacksonNeutrophils Auto (Bld) [#/Vol]Ordered By: Bakari Barboza on 07-21-2024 Neutrophils (Bld) [#/Vol]3.3 10*3/uL1.8-7.7FJ.W. [facility] Neutrophils/100 WBC Auto (Bld)Ordered By: Bakari Barboza on 07-21-2024 Neutrophils/100 WBC (Bld)68.2 %.[facility] JacksonNitrite Test strip Ql (U)Ordered By: Bakari Barboza on 98-50-7202Kyhvdfn Ql (U)NegativeNegative [facility] JacksonNo Panel InformationOrdered By: Ottoniel Bland on 23-84-2454Tristrmgielxe Receptor Binding Ab<0.03 nmol/L0.00-0.24[facility] JacksonComment on above:Negative: 0.00 - 0.24 Borderline: 0.25 - 0.40 Positive: >0.40Performed at: [facility] [id number] Director: Keith Quijano MD, Phone: [phone] Panel InformationOrdered By: Bakari Barboza on 52-69-7943Dmzccseyw GFR (CKD-EPI) 32.449 mL/MinHolzer Medical Center – JacksonPharmacy Creatinine Clearance (Chem33.01[facility] JacksonNucleated erythrocytes [Presence] in Blood by Automated countOrdered By: Bakari aBrboza on 13-27-9195Vgjetbqqg RBC Auto Ql (Bld)0.0 /100{WBC}0-0.5FJ.W. Ruby Memorial HospitalPlatelet mean volume Auto (Bld) [Entitic vol]Ordered By: Bakari Barboza on 10-66-4636Csxfmeft mean volume (Bld) [Entitic vol]7.1 fL6.3-10.7FJ.W. [facility] Platelets Auto (Bld) [#/Vol]Ordered By: Bakari Barboza on 16-08-7319Pshmenftv (Bld) [#/Vol]141 10*3/tRQzm964-257UiighmbdlHolzer Medical Center – JacksonPotassium [Moles/volume] in Serum or PlasmaOrdered By: Bakari Barboza on 92-16-0036Erbhbtmls [Moles/Vol]4.5 mmol/L3.5-5.1FJ.W. Ruby Memorial HospitalProtein Test strip (U) [Mass/Vol]Ordered By: Bakari Barboza on 94-45-2944Hirsshj (U) [Mass/Vol] NegativeNegativeHolzer Medical Center – JacksonProtein [Mass/volume] in Serum or PlasmaOrdered By: Bakari Barboza on 33-46-2319Iufjdoi [Mass/Vol]6.6 g/dL6.4-8.9 [facility] JacksonProthrombin time (PT)Ordered By: Bakari Barboza on 41-16-1080YM Coag (PPP) [Time]12.3 s9.0-12.9[facility] [place] Comment on above:A hematocrit value greater than 55% may lead to inaccurate results in coagulation testing. Patientshaving hematocrit values >55% require a special collection tube for coagulation studies. Please contact the laboratory at [phone] for redraw instructions.RBC Auto (Bld) [#/Vol]Ordered By: Bakari Barboza on 24-83-4979BHJ (Bld) [#/Vol]3.66 10*6/uL3.60-5.00[facility] Hospitalerum acetylcholine receptor blocking antibody/total acetylcholine antibody ratioOrdered By: Ottoniel Bland on 57-54-1574Swlylkuxecozd receptor blocking Ab/Acetylcholine Ab.total (S) [Molar fraction]19 %0-25[facility] JacksonComment on above:This test was developed and its performance characteristicsdetermined by [employer]. It has not been cleared orapproved by the Food and Drug Administration. Negative: 0 - 25 Borderline: 26 - 30 Positive: >30Performed at: [address] [id number] Director: Keith Quijano MD, Phone: [phone] or plasma albumin/globulin mass ratioOrdered By: Bakari Barboza on 07-21-2024 Albumin/Globulin [Mass ratio]1.6 {ratio}[facility] Hospitalerum or plasma anion gap determinationOrdered By: Bakari Barboza on 16-22-4368Viwbz gap [Moles/Vol]13.2 mmol/L6.0-15.0[facility] Hospitalerum or plasma high density lipoprotein (HDL) cholesterol measurementOrdered By: Comfort Monteiro on 01-76-8478Fbtgmgpiewv in HDL [Mass/Vol]40 mg/nJ11-39FovysufacHolzer Medical Center – JacksonComment on above:HDL CHOL ATP-III CLASSIFICATION Cardiovascular RiskHDL > or equal to 60 mg/dL LOWHDL < 40 mg/dL HIGHSerum or plasma non-glucuronidated bilirubin measurement (mass/volume)Ordered By: Bakari Barboza on 87-94-6565Nqmkjnldo.indirect [Mass/Vol]0.3 mg/dLMercy Health Clermont Hospitalerum or plasma total cholesterol/high density lipoprotein (HDL) cholesterol mass ratOrdered By: Comfort Monteiro on 07-21-2024 Cholesterol.total/Cholesterol in HDL [Mass ratio]2.8 {ratio}<5.0[facility] Hospitalodium [Moles/volume] in Serum or PlasmaOrdered By: Bakari Barboza on 70-95-5083Elwoyv [Moles/Vol]138 mmol/A919-126GtrvtefpnMercy Health Clermont Hospitalpecific gravity of Urine by RefractometryOrdered By: Bakari Barboza on 65-62-6899Bjghtqeb gravity Refractometry (U) [Rel density]1.0181.001-1.030 [facility] JacksonComment on above:Rechecked by refractometer Triglyceride [Mass/volume] in Serum or PlasmaOrdered By: oCmfort Monteiro on 28-25-5140Kznnzrxdaqha [Mass/Vol]132 mg/dL0-149[facility] [place] Comment on above:TRIG ATP III CLASSIFICATIONTRIG less than 150 mg/dL NormalTRIG 150-199 mg/dL Borderline highTRIG 200-500 mg/dL High TRIG greater than 500 mg/dL Very highStandard traceable to the Center for Disease Conrtrol and Prevention (CDC) test method.Troponin I.cardiac [Mass/volume] in Serum or Plasma by Detection limit <= 0.01 ng/Ordered By: Bakari Barboza on 21-31-5786Ldlrmjph I.cardiac DL <= 0.01 ng/mL [Mass/Vol]4.4 pg/mL0.0-15.0[facility] JacksonUrea nitrogen [Mass/volume] in Serum or PlasmaOrdered By: Bakari Barboza on 55-35-3269Xzda nitrogen [Mass/Vol]43 mg/dLHigh7-25[facility] JacksonUrine appearanceOrdered By: Bakari Barboza on 91-12-2428Yyjefwntwt (U)Clear ClearHolzer Medical Center – JacksonUrobilinogen Test strip (U) [Mass/Vol] Ordered By: Bakari Barboza on 77-61-1826Epwocngtgfmy (U) [Mass/Vol]Normal mg/dL NormalHolzer Medical Center – JacksonVaricella zoster virus DNA [Presence] in Cerebral spinal fluid by DIPESH with probe deteOrdered By: Ottoniel Bland on 22-47-7868PYZ DNA DIPESH+probe Ql (CSF)8 %0-45[facility] [place] Comment on above:This test was developed and its performance characteristicsdetermined by [employer]. It has not been cleared orapproved by the Food and Drug Administration. Interpretive Information: Negative: 0 - 45% Po sitive: > 45%No single value for AChR-modulating antibody shouldbe used as a sole basis for diagnosis or responseto therapy.Performed at: [address] [id number] Director: Keith Quijano MD, Phone: [phone] Auto (Bld) [#/Vol]Ordered By: Bakari Barboza on 62-56-4310TEA (Bld) [#/Vol]4.8 10*3/uL3.8-11.6FJ.[facility]. [facility] pH Test strip (U)Ordered By: Bakari Barboza on 60-37-9423yQ (U)6.0 [pH]5.0-9.0 [facility] JacksonAlanine aminotransferase [Enzymatic activity/volume] in Serum or PlasmaOrdered By: Vinay Matta on 90-81-8405UBV [Catalytic activity/Vol]18 U/L7-52[facility] JacksonAlbumin [Mass/volume] in Serum or Plasma by Bromocresol green (BCG) dye binding metho Ordered By: Vinay Matta on 78-46-4004Vnplmrv BCG dye [Mass/Vol]4.0 g/dL 3.5-5.7FJ.W. Ruby Memorial HospitalAlkaline phosphatase [Enzymatic activity/volume] in Serum or PlasmaOrdered By: Vinay Matta on 65-93-1341PMC [Catalytic activity/Vol]104 U/J24-723HvmyadipqHolzer Medical Center – JacksonAspartate aminotransferase [Enzymatic activity/volume] in Serum or PlasmaOrdered By: Vinay Bunting on 28-99-9254MTF [Catalytic activity/Vol]21 U/Q40-42XiionzdthHolzer Medical Center – JacksonBasophils Auto (Bld) [#/Vol]Ordered By: Vinay Bunting on 39-55-1448Zdynezccu (Bld) [#/Vol]0.0 10*3/uL0.0-0.2FJ.W. Ruby Memorial HospitalBasophils/100 WBC Auto (Bld)Ordered By: Vinay Bunting on 05-24-2024 Basophils/100 WBC (Bld)0.2 %.[facility] JacksonBilirubin.total [Mass/volume] in Serum or PlasmaOrdered By: Vinay Bunting on 05-24-2024 Bilirubin [Mass/Vol]0.5 mg/dL0.3-1.0[facility] JacksonCalcium [Mass/volume] in Serum or PlasmaOrdered By: Vinay Bunting on 13-36-7937Fpcopwy [Mass/Vol]8.6 mg/dL8.6-10.3FJ.W. Ruby Memorial HospitalCarbon dioxide, total [Moles/volume] in Serum or PlasmaOrdered By: Vinay Bunting on 05-24-2024 CO2 [Moles/Vol]29.0 mmol/L21.0-31.0[facility] JacksonChloride [Moles/volume] in Serum or PlasmaOrdered By: Vinay Bunting on 05-24-2024 Chloride [Moles/Vol]101 mmol/M32-196QussfileqHolzer Medical Center – JacksonCholesterol [Mass/volume] in Serum or PlasmaOrdered By: Vinay Bunting on 05-24-2024 Cholesterol [Mass/Vol]107 mg/yUIzo630-575QkihssnebHolzer Medical Center – [place] Comment on above:Chol less than 200 mg/dl low riskChol 201-239 mg/dl borderline riskChol 240 mg/dl and greater high riskCholesterol in LDL Calc [Mass/Vol] Ordered By: Vinay Bunting on 62-20-7982Qfytmkbmopc in LDL [Mass/Vol]46 mg/dL 0-100[facility] JacksonComment on above:LDL ATP III CLASSIFICATIONLDL less than 100 mg/dL OptimalLDL 100-129 mg/dL Near or above ffkghfkMRO386-506 mg/dL Borderline highLDL 160-189 mg/dL HighLDL greater than 189 mg/dL Very highCholesterol in VLDL Calc [Mass/Vol]Ordered By: Vinay Matta on 28-40-7646Xzzesiwwcun in VLDL [Mass/Vol]21 mg/dLHolzer Medical Center – JacksonCreatinine [Mass/volume] in Serum or PlasmaOrdered By: Vinay Matta on 53-03-1836Kefjvdajjj [Mass/Vol]1.26 mg/dLHigh0.60-1.20[facility] JacksonEosinophils Auto (Bld) [#/Vol]Ordered By: Vinay Matta on 05-24-2024 Eosinophils (Bld) [#/Vol]0.2 10*3/uL0.0-0.45[facility] [place] Eosinophils/100 WBC Auto (Bld)Ordered By: Vinay Matta on 05-24-2024 Eosinophils/100 WBC (Bld)2.6 %.[facility] JacksonErythrocyte distribution width Auto (RBC) [Ratio]Ordered By: Vinay Matta on 05-24-2024 Erythrocyte distribution width (RBC) [Ratio]16.8 %High11.9-15.3FJ.W. Ruby Memorial HospitalGlobulin Calc (S) [Mass/Vol]Ordered By: Vinay Matta on 80-03-4027Ayuiygjc (S) [Mass/Vol]2.2 g/dLHolzer Medical Center – [place] Glucose [Mass/volume] in Serum or PlasmaOrdered By: Vinay Matta on 05-24-2024 Glucose [Mass/Vol]133 mg/sXOlni07-071QqsljuzvnHolzer Medical Center – JacksonComment on above:ADA recommended reference rangeRandom Glucose Reference Range is dependent on time and content of last meal. Glucose of more than 200 mg/dL in a nonstressed, ambulatory subject supports the diagnosisof Diabetes Mellitus. Glucose mean value [Mass/volume] in Blood Estimated from glycated hemoglobin Ordered By: Vinay Matta on 03-75-5131Paecgur glucose Estimated from glycated hemoglobin (Bld) [Mass/Vol]151 mg/dLHolzer Medical Center – JacksonHematocrit Auto (Bld) [Volume fraction]Ordered By: Vinay Bunting on 81-70-6773Krwmddundp (Bld) [Volume fraction]32.1 %Low34.0-46.4FJ.[facility]. [facility] Hemoglobin A1c percentageOrdered By: Vinay Bunting on 11-42-1172UoZ9w (Bld) [Mass fraction]6.9 %High4.3-5.6FJ.W. Ruby Memorial HospitalComment on above:Increased risk for diabetes: 5.7 - 6.4diabetes: >6.4glycemic control for adults with diabetes: <7.0Hemoglobin [Mass/volume] in BloodOrdered By: Vinay Bunting on 25-68-0584Xocwqkcbiv (Bld) [Mass/Vol]10.9 g/dLLow11.8-15.4FJ.W. Ruby Memorial HospitalLeukocytes [#/volume] corrected for nucleated erythrocytes in Blood by Automated counOrdered By: Vinay Bunting on 05-24-2024 WBC corrected for nucl RBC Auto (Bld) [#/Vol]5.9 10*3/uL3.8-11.6FJ.W. Ruby Memorial HospitalLymphocytes Auto (Bld) [#/Vol]Ordered By: Vinay Bunting on 98-13-4315Qrdkpuujduy (Bld) [#/Vol]1.1 10*3/uL1.00-4.8[facility] JacksonLymphocytes/100 WBC Auto (Bld)Ordered By: Vinay Bunting on 30-71-9938Xklvjwnihyv/100 WBC (Bld)17.9 %.[facility] HospitalH Auto (RBC) [Entitic mass]Ordered By: Vinay Bunting on 40-32-2050IBH (RBC) [Entitic mass]29.9 pg24.7-34.3FJ.W. Ruby Memorial HospitalMCHC Auto (RBC) [Mass/Vol]Ordered By: Vinay Bunting on 14-11-1366VSYB (RBC) [Mass/Vol]34.0 g/dL 32.0-35.0[facility] JacksonMCV Auto (RBC) [Entitic vol]Ordered By: Vinay Bunting on 61-17-9849UHE (RBC) [Entitic vol]88.1 nQ65-204WqtnwujkrHolzer Medical Center – JacksonMagnesium [Mass/volume] in Serum or PlasmaOrdered By: Vinay Bunting on 80-88-6171Oprleyzag [Mass/Vol]1.0 mg/dLLow1.9-2.7FJ.W. Ruby Memorial HospitalMonocytes Auto (Bld) [#/Vol]Ordered By: Vinay Bunting on 50-08-3424Kjgfvizez (Bld) [#/Vol]0.3 10*3/uL0.0-0.8[facility] JacksonMonocytes/100 WBC Auto (Bld)Ordered By: Vinay Bunting on 05-24-2024 Monocytes/100 WBC (Bld)5.4 %.[facility] JacksonNeutrophils Auto (Bld) [#/Vol]Ordered By: Vinay Bunting on 74-63-5118Htunihpickh (Bld) [#/Vol] 4.4 10*3/uL1.8-7.7FJ.W. Ruby Memorial HospitalNeutrophils/100 WBC Auto (Bld)Ordered By: Vinay Bunting on 11-10-3284Kscktimvepd/100 WBC (Bld)73.9 %. [facility] JacksonNo Panel InformationOrdered By: Vinay Bunting on 78-98-0803Mtffihnln GFR (CKD-EPI)44.522 mL/MinHolzer Medical Center – JacksonPharmacy Creatinine Clearance (ChemN/AFJ.W. Ruby [facility] Hospital Nucleated erythrocytes [Presence] in Blood by Automated countOrdered By: Vinay Bunting on 30-26-2212Zaxftmvqc RBC Auto Ql (Bld)0.1 /100{WBC}0-0.5FJ.W. Ruby Memorial HospitalPlatelet mean volume Auto (Bld) [Entitic vol]Ordered By: Vinay Bunting on 58-07-9484Fshnugvh mean volume (Bld) [Entitic vol]7.3 fL 6.3-10.7FJ.W. Ruby Memorial HospitalPlatelets Auto (Bld) [#/Vol]Ordered By: Vinay Bunting on 52-25-1294Lvsjzhszj (Bld) [#/Vol]156 10*3/oR241-758AmijawzxsHolzer Medical Center – JacksonPotassium [Moles/volume] in Serum or PlasmaOrdered By: Vinay Bunting on 95-11-4499Nxioidoel [Moles/Vol]4.7 mmol/L3.5-5.1FJ.W. Ruby Memorial HospitalProtein [Mass/volume] in Serum or PlasmaOrdered By: Vinay Bunting on 45-41-1410Dwqngnm [Mass/Vol]6.2 g/dLLow6.4-8.9[facility] – JacksonRBC Auto (Bld) [#/Vol]Ordered By: Vinay Bunting on 66-65-1949HSS (Bld) [#/Vol]3.65 10*6/uL3.60-5.00[facility] Hospitalerum or plasma albumin/globulin mass ratioOrdered By: Vinay Bunting on 47-41-3462Fugojzg/Globulin [Mass ratio]1.8 {ratio}[facility] Hospitalerum or plasma anion gap determinationOrdered By: Vinay Bunting on 34-50-9362Ucmke gap [Moles/Vol]14.7 mmol/L6.0-15.0[facility] Hospitalerum or plasma high density lipoprotein (HDL) cholesterol measurement Ordered By: Vinay Bunting on 17-89-1312Kbhhixlxfiu in HDL [Mass/Vol]40 mg/dL 23-92[facility] JacksonComment on above:HDL CHOL ATP-III CLASSIFICATION Cardiovascular RiskHDL > or equal to 60 mg/dL LOWHDL < 40 mg/dL HIGHSerum or plasma total cholesterol/high density lipoprotein (HDL) cholesterol mass ratOrdered By: Vinay Bunting on 63-78-7823Iykijsqyutc.total/Cholesterol in HDL [Mass ratio]2.7 {ratio}<5.0[facility] Hospitalodium [Moles/volume] in Serum or PlasmaOrdered By: Vinay Bunting on 74-25-5968Lustdz [Moles/Vol]140 mmol/S062-293SdqkdxnbtHolzer Medical Center – JacksonTriglyceride [Mass/volume] in Serum or PlasmaOrdered By: Vinay Bunting on 05-24-2024 Triglyceride [Mass/Vol]106 mg/dL0-149[facility] JacksonComment on above:TRIG ATP III CLASSIFICATIONTRIG less than 150 mg/dL NormalTRIG 150-199 mg/dL Borderline highTRIG 200-500 mg/dL High TRIG greater than 500 mg/dL Very highStandard traceable to the Center for Disease Conrtrol and Prevention (CDC) test method.Urate [Mass/volume] in Serum or PlasmaOrdered By: Vinay Bunting on 34-05-6525Cthgo [Mass/Vol]3.9 mg/dL2.3-6.6FJ.W. Ruby Memorial HospitalUrea nitrogen [Mass/volume] in Serum or PlasmaOrdered By: Vinay Bunting on 32-48-6686Kvjh nitrogen [Mass/Vol]26 mg/dLHigh7-25[facility] JacksonWBC Auto (Bld) [#/Vol]Ordered By: Vinay Bunting on 22-38-0438JQT (Bld) [#/Vol]5.9 10*3/uL3.8-11.6FJ.W. Ruby Memorial HospitalConsultation Noteon 40-35-9812Uknbnuwtjnsj [id number]#1.00TIFCleveland Clinic Mentor HospitalRetail - Clinical Noteon 18-12-5558Ukcows - Clinical [id number]#1.00[facility] CenterRetail - Clinical Note [id number]#1.00[facility] Medical CenterCHEMISTRYOrdered By: SYSTEM SYSTEM on 70-34-1160Bhjjrnj [Mass/Vol]4.2 g/dL Normal3.3 - 5.0 gm/dLRemisol ChemAlbumin/Globulin [Mass ratio]1.8 {ratio}Normal 1.1 - 2.2Remisol ChemALP [Catalytic activity/Vol]112 [iU]/dHigh21 - 98 Int._Unit/LRemisol ChemALT No additional P-5'-P [Catalytic activity/Vol]24 [iU]/dNormal6 - 46 Int._Unit/LRemisol ChemAnion gap [Moles/Vol]18 mmol/LHigh6 - 16 mEq/LRemisol ChemAST [Catalytic activity/Vol]31 [iU]/dNormal5 - 43 Int._Unit/LRemisol ChemBilirubin [Mass/Vol]0.5 mg/dLNormal0.0 - 1.1 mg/dLRemisol ChemCalcium [Mass/Vol]8.7 mg/dLLow8.9 - 11.1 mg/dLRemisol ChemChloride [Moles/Vol]99 mmol/DZvc508 - 111 mmol/LRemisol ChemCO2 [Moles/Vol]25 mmol/L Rcsyny73 - 31 mmol/LRemisol ChemCreatinine [Mass/Vol]1.7 mg/dLHigh0.5 - 1.3 mg/dLRemisol OefzeCSX65 mL/min/1.73 m2Low>=59mL/min/1.73 q7Fcmhlzo ChemFerritin [Mass/Vol]41 ng/aWTfremt86 - 307 ng/mLRemisol ChemGlobulin (S) [Mass/Vol]2.4 g/dLNormal1.4 - 4.0 gm/dLRemisol ChemGlucose [Mass/Vol]188 mg/oQXcigcy40 - 199 mg/dLRemisol ChemIron [Mass/Vol]70 ug/lIPhvtev02 - 153 mcg/dLRemisol ChemIron binding capacity [Mass/Vol]433 ug/oPWxfz558 - 400 mcg/dLRemisol ChemMagnesium [Mass/Vol]1.3 mg/dLNormal1.3 - 2.4 mg/dLRemisol ChemPotassium [Moles/Vol]3.8 mmol/LNormal3.5 - 5.3 mmol/LRemisol ChemProtein [Mass/Vol]6.6 g/dLNormal6.0 - 7.8 gm/dLRemisol ChemSodium [Moles/Vol]138 mmol/NZyydcu772 - 145 mmol/LRemisol ChemTransferrin [Mass/Vol]309 mg/iZRelulb781 - 370 mg/dLRemisol ChemUrea nitrogen [Mass/Vol]36 mg/dLHigh5 - 21 mg/dLRemisol ChemUrea nitrogen/Creatinine [Mass ratio]21 mg/wqDpar16 - 20Remisol ChemCOAGULATIONOrdered By: Karlie Gomez on [id number] Coag (PPP) [Relative time]1.10 {INR}Invalid Interpretation CodeCED[facility] [place] Auto CoagComment on above:Interpretive Data: INR results are specifically intended to assess patients stabilized on long-term Anticoagulation therapy suggested INR s Less Intensive Anticoagulation 2.0 3.0 Conventional Range 3.0 4.5PT Coag (PPP) [Time]12.3 sNormal9.4 - 12.5 second(s) [facility] [place] Auto CoagComment on above:Interpretive Data: 15 days [...] the same coagulation reagent and instrumentation as [facility] [place]. Currently there are no coagulation studies available worldwide for children to 14 days, andno normal ranges.HEMATOLOGYOrdered By: SYSTEM SYSTEM on [id number] distribution width (RBC) [Ratio]17.1 %High10.9 - 14.2 %Remisol HemeHematocrit (Bld) [Volume fraction]31.2 %Low34.0 - 46.0 %Remisol HemeHemoglobin (Bld) [Mass/Vol]10.4 g/dLLow12.0 - 16.0 gm/dLRemisol HemeMCH (RBC) [Entitic mass]28.7 faVzrckj73.0 - 34.0 pgRemisol HemeMCHC (RBC) [Mass/Vol]33.5 g/kLTqeupp42.4 - 36.0 gm/dLRemisol HemeMCV (RBC) [Entitic vol]85.7 hFPvrsfm48.0 - 100.0 fLRemisol HemePlatelet mean volume (Bld) [Entitic vol]7.5 fLNormal6.4 - 10.8 fLRemisol HemePlatelets (Bld) [#/Vol]152.0 E9/XUiwmzo233.0 - 500.0 E9/LRemisol HemeRBC (Bld) [#/Vol]3.6 E12/LLow4.3 - 5.9 E12/LRemisol HemeWBC corrected for nucl RBC Auto (Bld) [#/Vol]5.3 E9/LNormal4.0 - 11.0 E9/LRemisol HemeAlanine aminotransferase [Enzymatic activity/volume] in Serum or PlasmaOrdered By: Vinay Bunting on 07-71-3241YQC [Catalytic activity/Vol]24 U/L7-52[facility] – JacksonAlbumin [Mass/volume] in Serum or Plasma by Bromocresol green (BCG) dye binding methoOrdered By: Vinay Bunting on 74-07-9810Iqttdia BCG dye [Mass/Vol]4.2 g/dL3.5-5.7FJ.W. Ruby Memorial HospitalAlkaline phosphatase [Enzymatic activity/volume] in Serum or PlasmaOrdered By: Vinay Bunting on 16-72-5146CWM [Catalytic activity/Vol]105 U/S18-089DowkqkcwqHolzer Medical Center – JacksonAspartate aminotransferase [Enzymatic activity/volume] in Serum or PlasmaOrdered By: Vinay Bunting on 35-94-2641EPQ [Catalytic activity/Vol]24 U/L 13-39[facility] – JacksonBasophils Auto (Bld) [#/Vol]Ordered By: Vinay Bunting on 21-01-8748Abjrenbgn (Bld) [#/Vol]0.0 10*3/uL0.0-0.2FJ.W. Ruby Memorial HospitalBasophils/100 WBC Auto (Bld)Ordered By: Vinay Bunting on 56-29-1281Fxhbegjgl/100 WBC (Bld)0.5 %.[facility] Bilirubin.total [Mass/volume] in Serum or PlasmaOrdered By: Vinay Bunting on 01-32-4101Ljfnbpqpn [Mass/Vol]0.5 mg/dL0.3-1.0[facility] Calcium [Mass/volume] in Serum or PlasmaOrdered By: Vinay Bunting on 09-05-2023 Calcium [Mass/Vol]9.1 mg/dL8.6-10.3FJ.W. Ruby Memorial HospitalCarbon dioxide, total [Moles/volume] in Serum or PlasmaOrdered By: Vinay Bunting on 33-26-1363EY6 [Moles/Vol]29.2 mmol/L21.0-31.0[facility] Chloride [Moles/volume] in Serum or PlasmaOrdered By: Vinay Bunting on 76-90-6732Uiuoprgg [Moles/Vol]103 mmol/O21-869SlasepceaHolzer Medical Center – Jackson Cholesterol [Mass/volume] in Serum or PlasmaOrdered By: Vinay Bunting on 68-78-4115Vdfucaxbqyt [Mass/Vol]116 mg/vO549-724SfgsjsztwHolzer Medical Center – JacksonComment on above:Chol less than 200 mg/dl low riskChol 201-239 mg/dl borderline riskChol 240 mg/dl and greater high riskCholesterol in LDL Calc [Mass/Vol]Ordered By: Vinay Bunting on 37-96-0726Hnkpaqvhcug in LDL [Mass/Vol] 55 mg/dL0-100[facility] – JacksonComment on above:LDL ATP III CLASSIFICATIONLDL less than 100 mg/dL OptimalLDL 100-129 mg/dL Near or above qsdvyovMPN872-163 mg/dL Borderline highLDL 160-189 mg/dL HighLDL greater than 189 mg/dL Very highCholesterol in VLDL Calc [Mass/Vol]Ordered By: Vinay Bunting on 23-48-5797Crxnfnnewyj in VLDL [Mass/Vol]18 mg/dLHolzer Medical Center – JacksonCreatinine [Mass/volume] in Serum or PlasmaOrdered By: Vinay Bunting on 44-82-0900Qfuscogmga [Mass/Vol]1.67 mg/dL0.60-1.20[facility] – JacksonEosinophils Auto (Bld) [#/Vol]Ordered By: Vinay Bunting on 09-05-2023 Eosinophils (Bld) [#/Vol]0.1 10*3/uL0.0-0.45[facility] Eosinophils/100 WBC Auto (Bld)Ordered By: Vinay Bunting on 09-05-2023 Eosinophils/100 WBC (Bld)2.7 %.[facility] – JacksonErythrocyte distribution width Auto (RBC) [Ratio]Ordered By: Vinay Matta on 09-05-2023 Erythrocyte distribution width (RBC) [Ratio]17.2 %11.9-15.3FJ.W. Ruby Memorial HospitalGlobulin Calc (S) [Mass/Vol]Ordered By: Vinay Matta on 95-43-9133Oiszazfl (S) [Mass/Vol]2.2 g/dLHolzer Medical Center – Jackson Glucose [Mass/volume] in Serum or PlasmaOrdered By: Vinay Matta on 09-05-2023 Glucose [Mass/Vol]172 mg/zK96-118CvxcvinvhHolzer Medical Center – JacksonComment on above:ADA recommended reference rangeRandom Glucose Reference Range is dependent on time and content of last meal. Glucose of more than 200 mg/dL in a nonstressed, ambulatory subject supports the diagnosisof Diabetes Mellitus. Glucose mean value [Mass/volume] in Blood Estimated from glycated hemoglobin Ordered By: Vinay Matta on 71-57-2706Icemedx glucose Estimated from glycated hemoglobin (Bld) [Mass/Vol]192 mg/dLHolzer Medical Center – JacksonHematocrit Auto (Bld) [Volume fraction]Ordered By: Vinay Matta on 78-86-2964Mjmaaobgmw (Bld) [Volume fraction]31.6 %34.0-46.4FJ.W. [facility] Hemoglobin A1c percentageOrdered By: Vinay Matta on 27-61-3670JkL2i (Bld) [Mass fraction]8.3 %4.3-5.6FJ.W. Ruby Memorial HospitalComment on above: Increased risk for diabetes: 5.7 - 6.4diabetes: >6.4glycemic control for adults with diabetes: <7.0Hemoglobin [Mass/volume] in BloodOrdered By: Vinay Matta on 41-09-6080Xkqdwlhtyd (Bld) [Mass/Vol]11.0 g/dL11.8-15.4FJ.W. Ruby Memorial HospitalLeukocytes [#/volume] corrected for nucleated erythrocytes in Blood by Automated counOrdered By: Vinay Matta on 09-05-2023 WBC corrected for nucl RBC Auto (Bld) [#/Vol]5.3 10*3/uL3.8-11.6FJ.W. Ruby Memorial HospitalLymphocytes Auto (Bld) [#/Vol]Ordered By: Vinay Bunting on 56-04-9435Vtoweuewlfz (Bld) [#/Vol]1.5 10*3/uL1.00-4.8[facility] – JacksonLymphocytes/100 WBC Auto (Bld)Ordered By: Vinay Bunting on 44-98-9094Ociaqflelwo/100 WBC (Bld)28.2 %.[facility] HospitalH Auto (RBC) [Entitic mass]Ordered By: Vinay Bunting on 86-71-4825NHM (RBC) [Entitic mass]29.1 pg24.7-34.3FOhio State East HospitalHC Auto (RBC) [Mass/Vol]Ordered By: Vinay Bunting on 53-83-5356UPFP (RBC) [Mass/Vol]34.9 g/dL 32.0-35.0[facility] – JacksonMCV Auto (RBC) [Entitic vol]Ordered By: Vinay Bunting on 84-04-7855GEU (RBC) [Entitic vol]83.3 tK24-392AcxkqqujzHolzer Medical Center – JacksonMonocytes Auto (Bld) [#/Vol]Ordered By: Vinay Bunting on 32-34-8990Lrrjzsjqx (Bld) [#/Vol]0.3 10*3/uL0.0-0.8[facility] – JacksonMonocytes/100 WBC Auto (Bld)Ordered By: Vinay Bunting on 09-05-2023 Monocytes/100 WBC (Bld)5.0 %.[facility] – JacksonNeutrophils Auto (Bld) [#/Vol]Ordered By: Vinay Bunting on 13-79-3270Axfggdtkutx (Bld) [#/Vol] 3.4 10*3/uL1.8-7.7FJ.W. Ruby Memorial HospitalNeutrophils/100 WBC Auto (Bld)Ordered By: Vinay Bunting on 61-48-8763Lblisgpxruk/100 WBC (Bld)63.6 %. [facility] – JacksonNo Panel InformationOrdered By: Vinay Bunting on 76-06-7685Osisclfhk GFR (CKD-EPI)31.949 mL/MinHolzer Medical Center – JacksonPharmacy Creatinine Clearance (ChemN/AFJ.W. Ruby [facility] Hospital Nucleated erythrocytes [Presence] in Blood by Automated countOrdered By: Vinay Bunting on 86-96-2244Hzxrevjlk RBC Auto Ql (Bld)0.0 /100{WBC}0-0.5FJ.W. Ruby Memorial HospitalPlatelet mean volume Auto (Bld) [Entitic vol]Ordered By: Vinay Bunting on 46-98-7948Jkkutanq mean volume (Bld) [Entitic vol]7.3 fL 6.3-10.7FJ.W. Ruby Memorial HospitalPlatelets Auto (Bld) [#/Vol]Ordered By: Vinay Bunting on 67-12-5971Vlivocwau (Bld) [#/Vol]150 10*3/kA553-373AmrdsjispHolzer Medical Center – JacksonPotassium [Moles/volume] in Serum or PlasmaOrdered By: Vinay Bunting on 12-74-4249Errkwaqhy [Moles/Vol]4.0 mmol/L3.5-5.1FJ.W. Ruby Memorial HospitalProtein [Mass/volume] in Serum or PlasmaOrdered By: Vinay Bunting on 43-23-6222Cnyecvo [Mass/Vol]6.4 g/dL6.4-8.9[facility] – JacksonRBC Auto (Bld) [#/Vol]Ordered By: Vinay Bunting on 24-31-6550YBH (Bld) [#/Vol]3.79 10*6/uL3.60-5.00[facility] Hospitalerum or plasma albumin/globulin mass ratioOrdered By: Vinay Bunting on 09-05-2023 Albumin/Globulin [Mass ratio]1.9 {ratio}[facility] Hospitalerum or plasma anion gap determinationOrdered By: Vinay Bunting on 58-48-6683Mnxpk gap [Moles/Vol]13.8 mmol/L6.0-15.0[facility] Hospitalerum or plasma high density lipoprotein (HDL) cholesterol measurementOrdered By: Vinay Bunting on 76-58-1576Pdcedzqpkdv in HDL [Mass/Vol]42 mg/aL94-28JgxfmwrogHolzer Medical Center – JacksonComment on above:HDL CHOL ATP-III CLASSIFICATION Cardiovascular RiskHDL > or equal to 60 mg/dL LOWHDL < 40 mg/dL HIGHSerum or plasma total cholesterol/high density lipoprotein (HDL) cholesterol mass rat Ordered By: Vinay Matta on 89-30-1564Yikxecgizku.total/Cholesterol in HDL [Mass ratio]2.8 {ratio}<5.0[facility] Hospitalodium [Moles/volume] in Serum or PlasmaOrdered By: Vinay Bunting on 98-85-6251Lpadss [Moles/Vol]142 mmol/M900-468FwpshnsvqHolzer Medical Center – JacksonTriglyceride [Mass/volume] in Serum or PlasmaOrdered By: [facility] Bunting on 09-05-2023 Triglyceride [Mass/Vol]93 mg/dL0-149Hol[facility] – JacksonComment on above:TRIG ATP III CLASSIFICATIONTRIG less than 150 mg/dL NormalTRIG 150-199 mg/dL Borderline highTRIG 200-500 mg/dL High TRIG greater than 500 mg/dL Very highStandard traceable to the Center for Disease Conrtrol and Prevention (CDC) test method.Urate [Mass/volume] in Serum or PlasmaOrdered By: Vinay [facility]st. [facility] on 12-24-1014Prgzw [Mass/Vol]6.0 mg/dL2.3-6.6FJ.W. Ruby Memorial HospitalUrea nitrogen [Mass/volume] in Serum or PlasmaOrdered By: Vinay Bunting on 92-74-1141Rixw nitrogen [Mass/Vol]38 mg/dL7-25[facility] WBC Auto (Bld) [#/Vol]Ordered By: Vinay Escalerast. elizabeth's hospital on 01-16-1196FTA (Bld) [#/Vol] 5.3 10*3/uL3.8-11.6FJ.W. Ruby Memorial HospitalCBC AUTO DIFFon 03-27-2023 BASO #0.0 103/ulNormal0.0-0.1The [facility] CenterComment on above:Performed By: #### CBC #### [facility] [address] [address] [address] Anamika Beansophils/100 WBC (Bld)0.3 %Normal0.2-2.0The [facility] Comment on above:Performed By: #### CBC #### [facility] [address] [address] [address] Anaimka Barth #0.1 103/ulNormal0.0-0.7The [facility] CenterComment on above: Performed By: #### CBC #### [facility] [address] [address] [address] Anamika Holdenosinophils/100 WBC (Bld)1.7 %Normal0.9-7.0The [facility] Comment on above:Performed By: #### CBC #### [facility] [address] [place] [address] Dr. Anamika Holdenrythrocyte distribution width (RBC) [Ratio]15.4 %Critically high 11.0-15.0The [facility] Hospitalment on above:Performed By: #### CBC #### [facility] [address] [place] [address] Dr. Anamika VargheseHematocrit (Bld) [Volume fraction]32.2 %Critically low36.0-48.0 The [facility] CenterComment on above:Performed By: #### CBC #### [facility] [address] [place] [address] Dr. Anamika VargheseHemoglobin (Bld) [Mass/Vol]10.9 g/dLCritically low12.0-16.0The [facility] CenterComment on above:Performed By: #### CBC #### [facility] [address] [place] [address] Dr. Anamika Keane #0.02 10e3/ulNormal0.00-0.03The [facility] CenterComment on above:Performed By: #### CBC #### [facility] [address] [place] [address] Dr. Anamika Keane %0.3 %Normal0.0-0.5The [facility] CenterComment on above: Performed By: #### CBC #### [facility] [address] [place] [address] Dr. Anamika Portillo #1.5 103/ulNormal1.2-3.8The [facility] CenterComment on above:Performed By: #### CBC #### [facility] [address] [place] [address] Dr. Anamika Cohnmphocytes/100 WBC (Bld)25.0 %Wjjqnf53.5-60.0The [facility] CenterComment on above:Performed By: #### CBC #### [facility] [address] [place] [address] Dr. Anamika MabryUAL DIFF REQNONormalThe [facility] CenterComment on above: Performed By: #### CBC #### [facility] [address] [place] [address] Dr. Anamika Jean (RBC) [Entitic mass]29.0 hqXfwppj71.7-34.0The [facility] CenterComment on above:Performed By: #### CBC #### [facility] [address] [place] [address] Dr. Anamika Jean (RBC) [Mass/Vol]33.9 g/yEOnefts99.9-35.2The [facility] CenterComment on above:Performed By: #### CBC #### [facility] [address] [place] [address] Dr. Anamika Jean (RBC) [Entitic vol]85.6 pUPuhcyx01.0-99.0The [facility] CenterComment on above:Performed By: #### CBC #### [facility] [address] [place] [address] Dr. Anamika Gerber #0.3 103/ulNormal0.3-0.8The [facility] CenterComment on above:Performed By: #### CBC #### [facility] [address] [place] [address] Dr. Anamika Beaulieuocytes/100 WBC (Bld)4.5 %Normal1.7-12.0The [facility] on above:Performed By: #### CBC #### [facility] [address] [place] [address] Dr. Anamika Rowe #4.1 103/ulNormal1.4-6.5The [facility] CenterComment on above:Performed By: #### CBC #### [facility] [address] [address] [address] Anamika Bautistautrophils/100 WBC (Bld)68.2 %Keglxg17.0-75.0The [facility] CenterComment on above:Performed By: #### CBC #### [facility] [address] [place] [address] Dr. Anamika VarghesePlatelet mean volume (Bld) [Entitic vol]8.9 fLCritically low 9.5-13.5The [facility] CenterComment on above:Performed By: #### CBC #### [facility] [address] [place] [address] Dr. Anamika VarghesePLT172 103/elXenpsw745-425Psi [facility] CenterComment on above: Performed By: #### CBC #### [facility] [address] [place] [address] Dr. Anamika VargheseRBC3.76 106/ulCritically low4.20-5.40The [facility] CenterComment on above:Performed By: #### CBC #### [facility] [address] [place] [address] Dr. Anamika VargheseWBC6.0 103/ulNormal4.0-11.0The [facility] CenterComment on above: Performed By: #### CBC #### [facility] [address] [place] [address] Dr. Anamika VarghesePROReinaldo 14(COMP METB)on 56-35-6268Kkgkfgj [Mass/Vol]3.5 g/dLNormal 3.4-5.0The [facility] CenterComment on above:Performed By: #### FETIBC, FERR, B12FOL #### [facility] [address] [place] [address] Dr. Anamika VargheseAlbumin/Globulin [Mass ratio]1.0 {ratio}NormalThe [facility] on above:Performed By: #### FETIBC, FERR, B12FOL #### [facility] [address] [place] [address] Dr. Anamika Simon [Catalytic activity/Vol]109 U/QDfbdzg74-306Cbl [facility] CenterComment on above:Performed By: #### FETIBC, FERR, B12FOL #### [facility] [address] [place] [address] Dr. Anamika Cook [Catalytic activity/Vol]34 U/RAtrmwp02-60Lgt [facility] CenterComment on above:Performed By: #### FETIBC, FERR, B12FOL #### [facility] [address] [place] [address] Dr. Anamika Winn gap [Moles/Vol]13.8 mmol/LNormalThe [facility] Comment on above:Performed By: #### FETIBC, FERR, B12FOL #### [facility] [address] [place] [address] Dr. Anamika Barber [Catalytic activity/Vol]20 U/QQwaghl15-87Tsu [facility] CenterComment on above:Performed By: #### FETIBC, FERR, B12FOL #### [facility] [address] [place] [address] Dr. Anamika VargheseBilirubin [Mass/Vol]0.4 mg/dLNormal0.2-1.0The [facility] Comment on above:Performed By: #### FETIBC, FERR, B12FOL #### [facility] [address] [place] [address] Dr. Anamika VargheseCalcium [Mass/Vol]8.7 mg/dLNormal8.5-10.1[facility] Comment on above:Performed By: #### FETIBC, FERR, B12FOL #### [facility] [address] [place] [address] Dr. Anamika VargheseChloride [Moles/Vol]107 mmol/UEmvwfl12-778Qll [facility] Comment on above:Performed By: #### FETIBC, FERR, B12FOL #### [facility] [address] [place] [address] Dr. Anamika VargheseCO2 [Moles/Vol]28.2 mmol/NIduliy66.0-32.0The [facility] Comment on above:Performed By: #### FETIBC, FERR, B12FOL #### [facility] [address] [place] [address] Dr. Anamika VargheseCreatinine [Mass/Vol]1.27 mg/dLCritically high0.55-1.02The [facility] CenterComment on above:Performed By: #### FETIBC, FERR, B12FOL #### [facility] [address] [place] [address] Dr. Willson ChangEGFR-AF MTHFHOTY55 mL/min/1.42m6Mkagelgtmm low>=60The [facility] CenterComment on above:Performed By: #### FETIBC, FERR, B12FOL #### [facility] [address] [place] [address] Dr. Willson ChangEGFR-NON AF PLSERHHB87 mL/min/1.20u6Muzhuvappq low>=60The [facility] CenterComment on above:Performed By: #### FETIBC, FERR, B12FOL #### [facility] [address] [place] [address] Dr. Anamika VargheseGlobulin (S) [Mass/Vol]3.6 g/dLNormalThe [facility] CenterComment on above:Performed By: #### FETIBC, FERR, B12FOL #### [facility] [address] [place] [address] Dr. Anamika VargheseGlucose [Mass/Vol]116 mg/dLCritically txli35-599Rtv [facility] Hospitalment on above:Performed By: #### FETIBC, FERR, B12FOL #### [facility] [address] [place] [address] Dr. Anamika VarghesePotassium [Moles/Vol]4.0 mmol/LNormal3.5-5.1The [facility] Comment on above:Performed By: #### FETIBC, FERR, B12FOL #### [facility] [address] [place] [address] Dr. Anamika VargheseProtein [Mass/Vol]7.1 g/dLNormal6.4-8.2The [facility] Comment on above:Performed By: #### FETIBC, FERR, B12FOL #### [facility] [address] [address] [address] Anamika VargheseSodium [Moles/Vol]145 mmol/ORdbxux327-445Gxr [facility] Comment on above:Performed By: #### FETIBC, FERR, B12FOL #### [facility] [address] [address] [address] Anamika Marrero nitrogen [Mass/Vol]24.0 mg/dLCritically high7.0-18.0[facility] HospitalComment on above:Performed By: #### FETIBC, FERR, B12FOL #### [facility] [address] [address] [address] Anamika Marrero nitrogen/Creatinine [Mass ratio]18.9 mg/mgNormalThe [facility] CenterComment on above:Performed By: #### FETIBC, FERR, B12FOL #### [facility] [address] [place] [address] Dr. Anamika VargheseBasophils Auto (Bld) [#/Vol]Ordered By: Kimberly Arteaga on 83-21-1272Uowrnkzjs (Bld) [#/Vol]0.0 10*3/uL0.0-0.2FJ.W. Ruby Memorial HospitalBasophils/100 WBC Auto (Bld)Ordered By: Kimberly Arteaga on 03-13-2023 Basophils/100 WBC (Bld)0.4 %.[facility] – JacksonCalcium [Mass/volume] in Serum or PlasmaOrdered By: Kimberly Arteaga on 26-54-9013Qvynguc [Mass/Vol]8.5 mg/dL8.6-10.3FJ.W. Ruby Memorial HospitalCarbon dioxide, total [Moles/volume] in Serum or PlasmaOrdered By: Kimberly Arteaga on 03-13-2023 CO2 [Moles/Vol]29.6 mmol/L21.0-31.0[facility] – JacksonChloride [Moles/volume] in Serum or PlasmaOrdered By: Kimberly Arteaga on 94-31-9688Hcuhxtic [Moles/Vol]103 mmol/O17-580BnvexeizhHolzer Medical Center – JacksonCreatinine [Mass/volume] in Serum or PlasmaOrdered By: Kimberly Arteaga on 03-13-2023 Creatinine [Mass/Vol]1.35 mg/dL0.60-1.20[facility] Eosinophils Auto (Bld) [#/Vol]Ordered By: Kimberly Arteaga on 43-78-6912Zeywykmxosq (Bld) [#/Vol]0.1 10*3/uL0.0-0.45[facility] Eosinophils/100 WBC Auto (Bld)Ordered By: Kimberly Arteaga on 03-13-2023 Eosinophils/100 WBC (Bld)1.7 %.[facility] – JacksonErythrocyte distribution width Auto (RBC) [Ratio]Ordered By: Kimberly Arteaga on 03-13-2023 Erythrocyte distribution width (RBC) [Ratio]16.8 %11.9-15.3FJ.W. Ruby Memorial HospitalGlucose Glucometer (BldC) [Mass/Vol]Ordered By: Kimberly Arteaga on 65-95-7005Vzfgril [Mass/Vol]162 mg/dLHolzer Medical Center – JacksonComment on above:Random Glucose Reference Range is dependent on time and content of last meal. Glucose of more than 200 mg/dL in a nonstressed, ambulatory subject supports the diagnosis of Diabetes Mellitus.Glucose [Mass/volume] in Serum or PlasmaOrdered By: Kimberly Arteaga on 25-86-7763Kthrqvw [Mass/Vol]130 mg/uQ41-730 [facility] – JacksonComment on above:ADA recommended reference rangeRandom Glucose Reference Range is dependent on time and content of last meal. Glucose of more than 200 mg/dL in a nonstressed, ambulatory subject supports the diagnosisof Diabetes Mellitus.Hematocrit Auto (Bld) [Volume fraction]Ordered By: Kimberly Arteaga on 03-82-7103Luufhltvqi (Bld) [Volume fraction]32.5 %34.0-46.4FJ.W. Ruby Memorial HospitalHemoglobin [Mass/volume] in BloodOrdered By: Kimberly Arteaga on 91-09-3053Xonpewggxd (Bld) [Mass/Vol]10.9 g/dL11.8-15.4FJ.W. Ruby Memorial HospitalLeukocytes [#/volume] corrected for nucleated erythrocytes in Blood by Automated coun Ordered By: Kimberly Arteaga on 80-00-5508IMU corrected for nucl RBC Auto (Bld) [#/Vol]5.0 10*3/uL3.8-11.6FJ.W. Ruby Memorial HospitalLymphocytes Auto (Bld) [#/Vol]Ordered By: Kimberly Arteaga on 69-27-4218Vfehkmpdaud (Bld) [#/Vol]1.4 10*3/uL1.00-4.8[facility] – JacksonLymphocytes/100 WBC Auto (Bld) Ordered By: Kimberly Arteaga on 65-62-2180Reahdxadtoq/100 WBC (Bld)28.5 %.[facility] HospitalH Auto (RBC) [Entitic mass]Ordered By: Kimberly Arteaga on 91-65-2668FLH (RBC) [Entitic mass]28.6 pg24.7-34.3FJ.W. Ruby Memorial HospitalMCHC Auto (RBC) [Mass/Vol]Ordered By: Kimberly Arteaga on 71-83-8767HLUJ (RBC) [Mass/Vol]33.5 g/dL32.0-35.0[facility] – JacksonMCV Auto (RBC) [Entitic vol]Ordered By: Kimberly Arteaga on 04-92-8664MOR (RBC) [Entitic vol]85.3 eQ84-089QigttjcmaHolzer Medical Center – JacksonMonocytes Auto (Bld) [#/Vol] Ordered By: Kimberly Arteaga on 04-93-1625Lyfhbuwoa (Bld) [#/Vol]0.3 10*3/uL0.0-0.8 [facility] – JacksonMonocytes/100 WBC Auto (Bld)Ordered By: Kimberly Arteaga on 17-18-8980Osvyycduz/100 WBC (Bld)6.9 %.[facility] – JacksonNeutrophils Auto (Bld) [#/Vol]Ordered By: Kimberly Arteaga on 03-13-2023 Neutrophils (Bld) [#/Vol]3.1 10*3/uL1.8-7.7FJ.[facility]. [facility] Neutrophils/100 WBC Auto (Bld)Ordered By: Kimberly Arteaga on 03-13-2023 Neutrophils/100 WBC (Bld)62.5 %.[facility] – JacksonNo Panel InformationOrdered By: Kimberly Arteaga on 28-58-9720Nojowtset GFR (CKD-EPI)41.239 mL/MinHolzer Medical Center – JacksonPharmacy Creatinine Clearance (Chem39.70 [facility] – JacksonNucleated erythrocytes [Presence] in Blood by Automated countOrdered By: Kimberly Arteaga on 22-55-6036Tksojgwqk RBC Auto Ql (Bld)0.1 /100{WBC}0-0.5FJ.W. Ruby Memorial HospitalPlatelet mean volume Auto (Bld) [Entitic vol]Ordered By: Kimberly Arteaga on 97-14-4033Msrihezq mean volume (Bld) [Entitic vol]7.2 fL6.3-10.7FJ.[facility]. [facility] Platelets Auto (Bld) [#/Vol]Ordered By: Kimberly Arteaga on 96-83-1046Kxpcrdkfb (Bld) [#/Vol]152 10*3/gW599-582HlsgxmcnoHolzer Medical Center – JacksonPotassium [Moles/volume] in Serum or PlasmaOrdered By: Kimberly Arteaga on 03-13-2023 Potassium [Moles/Vol]3.8 mmol/L3.5-5.1FJ.W. Ruby Memorial HospitalRBC Auto (Bld) [#/Vol]Ordered By: Kimberly Arteaga on 40-40-8390NIY (Bld) [#/Vol]3.81 10*6/uL3.60-5.00[facility]erm[facility] Hospitalerum or plasma anion gap determinationOrdered By: Kimberly Arteaga on 98-60-0190Qgcfe gap [Moles/Vol]TNP [facility] – JacksonComment on above:Test not performedSodium [Moles/volume] in Serum or PlasmaOrdered By: Kimberly Arteaga on 54-53-3654Mfkncj [Moles/Vol]141 mmol/V209-344YxobqtjbfHolzer Medical Center – JacksonUrea nitrogen [Mass/volume] in Serum or PlasmaOrdered By: Kimberly Arteaga on 43-34-3916Rlzx nitrogen [Mass/Vol]28 mg/dL7-25Hol[facility] – JacksonWBC Auto (Bld) [#/Vol]Ordered By: Kimberly Arteaga on 88-34-5532JQL (Bld) [#/Vol]5.0 10*3/uL 3.8-11.6FJ.W. Ruby Memorial HospitalCholesterol [Mass/volume] in Serum or PlasmaOrdered By: Kimberly Arteaga on 57-44-3706Hnjedceyfrl [Mass/Vol]118 mg/dL 140-200[facility] – JacksonComment on above:Chol less than 200 mg/dl low riskChol 201-239 mg/dl borderline riskChol 240 mg/dl and greater high riskCholesterol in LDL Calc [Mass/Vol]Ordered By: Kimberly Arteaga on 03-12-2023 Cholesterol in LDL [Mass/Vol]51 mg/dL0-100[facility] Comment on above:LDL ATP III CLASSIFICATIONLDL less than 100 mg/dL OptimalLDL 100-129 mg/dL Near or above tvfyhpzUPG979-289 mg/dL Borderline highLDL 160-189 mg/dL HighLDL greater than 189 mg/dL Very highCholesterol in VLDL Calc [Mass/Vol]Ordered By: Kimberly Arteaga on 64-54-5518Bymqvoxnrka in VLDL [Mass/Vol] 32 mg/dLMercy Health Clermont Hospitalerum or plasma high density lipoprotein (HDL) cholesterol measurementOrdered By: Kimberly Arteaga on 03-12-2023 Cholesterol in HDL [Mass/Vol]35 mg/uL55-84YhzoqwaqvHolzer Medical Center – Jackson Comment on above:HDL CHOL ATP-III CLASSIFICATION Cardiovascular RiskHDL > or equal to 60 mg/dL LOWHDL < 40 mg/dL HIGHSerum or plasma total cholesterol/high density lipoprotein (HDL) cholesterol mass ratOrdered By: iKmberly Arteaga on 01-20-2497Caxqaailkhs.total/Cholesterol in HDL [Mass ratio]3.4 {ratio}<5.0 [facility] – JacksonTriglyceride [Mass/volume] in Serum or Plasma Ordered By: Kimberly Arteaga on 11-47-8968Jmnrkojjwnmr [Mass/Vol]160 mg/dL0-149 [facility] – JacksonComment on above:TRIG ATP III CLASSIFICATIONTRIG less than 150 mg/dL NormalTRIG 150-199 mg/dL Borderline highTRIG 200-500 mg/dL High TRIG greater than 500 mg/dL Very highStandard traceable to the Center for Disease Conrtrol and Prevention (CDC) test method. Activated partial thromboplastin time (aPTT) in platelet poor plasma by coagulation aOrdered By: Anthony Rose on 34-52-0257fSDC Coag (PPP) [Time]33.9 s25.1-36.5FJ.W. Ruby Memorial HospitalAutomated erythrocytes count in urine sediment (number/area)Ordered By: Anthony Rose on 98-38-8871VDG Auto (Urine sed) [#/Area]0-1 [HPF]0-4FJ.W. Ruby Memorial HospitalAutomated leukocytes count in urine sediment (number/area)Ordered By: Anthony Rose on 07-43-7996NFE Auto (Urine sed) [#/Area]10-19 [HPF]0-4FJ.[facility]. [facility] Bilirubin Test strip Ql (U)Ordered By: Anthony Rose on 95-58-7066Oniwbalfb Ql (U)NegativeNegGuernsey Memorial HospitalColor Auto (U)Ordered By: Anthony Rose on 08-18-7888Fpjoy (U)YellowYellowHolzer Medical Center – JacksonCreatine kinase [Enzymatic activity/volume] in Serum or PlasmaOrdered By: Anthony Rose on 42-51-9052PC [Catalytic activity/Vol]64 U/A05-100QhnuokzdxHolzer Medical Center – JacksonCreatinine (Bld) [Mass/Vol]Ordered By: Anthony Rose on 79-27-9162Ohobyeaejp [Mass/Vol]1.7 mg/dL0.6-1.3FJ.W. [facility] Comment on above:ER/ESD physician is notified/shown all ISTAT results.Critical values may be confirmed by laboratorytesting ifdeemed necessary by ER attending doctor.Ketones Auto test strip (U) [Mass/Vol]Ordered By: Anthony Rose on 86-78-3081Nkkkyxf (U) [Mass/Vol]NegativeNegativeHolzer Medical Center – JacksonLaboratory - CoagulationOrdered By: Anthony Rose on 61-20-5000WO Coag (PPP) [Time]13.5 s9.0-12.9[facility] JacksonLaboratory - UrinalysisOrdered By: Anthony Rose on 46-59-5567Ueihags casts LM Ql (Urine sed)0-8 [LPF]0-8[facility] – JacksonMonocyte distribution width [Entitic volume] in Blood by AutomatedOrdered By: Anthony Rose on 03-11-2023 Monocyte distribution width Auto (Bld) [Entitic vol]17.19 %0.00-20.00[facility] – JacksonNitrite Test strip Ql (U)Ordered By: Anthony Rose on 38-77-8966Fzqzoxb Ql (U)NegativeNegativeHolzer Medical Center – JacksonNo Panel InformationOrdered By: Anthony Rose on 53-65-3027Odikcbo Glucose Comment Glu2: cleaned meterHolzer Medical Center – JacksonPlatelet poor plasma international normalized ratio (INR) by coagulation assay (relatOrdered By: Anthony Rose on 71-13-7692DRE Coag (PPP) [Relative time]1.2 {INR}[facility] – JacksonComment on above:INR Therapeutic Range A) Pre- and [...] strip (U) [Mass/Vol]Ordered By: Anthony Rose on 00-61-7155Hfwlglf (U) [Mass/Vol]Negative NegativeMercy Health Clermont Hospitalpecific gravity Auto test strip (U) [Rel density]Ordered By: Anthony Rose on 19-97-4762Cwxdtxpi gravity (U) [Rel density]1.0201.001-1.030Mer[facility] Clermont Hospitalquamous epithelial cells detection in urine sediment by light microscopyOrdered By: Anthony Rose on 50-03-4710Wuxfhrxiag cells.squamous LM Ql (Urine sed)5-9 [HPF]0-2FJ.W. Ruby Memorial HospitalTroponin I.cardiac [Mass/volume] in Serum or Plasma by Detection limit <= 0.01 ng/Ordered By: Anthony Rose on 51-31-4033Lsqnqppn I.cardiac DL <= 0.01 ng/mL [Mass/Vol]3.7 pg/mL0.0-15.0[facility] – JacksonUrine bacteria detection by automated methodOrdered By: Anthony Rose on 85-48-8060Uubgbmur Auto Ql (U)None seenNone SeenHolzer Medical Center – JacksonUrine clarity by refractometry automatedOrdered By: Anthony Rose on 34-70-1923Ndubxqa Refractometry automated (U)ClearClearFJ.W. Ruby Memorial HospitalUrine culture routineOrdered By: Anthony Rose on 03-11-2023 Bacteria identified Cx Nom (U)Escherichia coliHolzer Medical Center – Jackson Urine glucose measurement by automated test strip (mass/volume)Ordered By: Anthony Rose on 59-23-3805Uttiveb Auto test strip (U) [Mass/Vol]Normal mg/dL NormalHolzer Medical Center – JacksonUrine hemoglobin detection by automated test stripOrdered By: Anthony Rose on 46-05-6979Jxzxwksowt Auto test strip Ql (U)NegativeNegativeHolzer Medical Center – JacksonUrine leukocyte esterase detection by automated test stripOrdered By: Anthony Rose on 03-11-2023 Leukocyte esterase Auto test strip Ql (U)2+NegativeHolzer Medical Center – JacksonUrobilinogen Auto test strip (U) [Mass/Vol]Ordered By: Anthony Rose on 49-95-5322Xikigtxmbonr (U) [Mass/Vol]Normal mg/dLNormalHolzer Medical Center – JacksonpH Auto test strip (U)Ordered By: Anthony Rose on 96-23-7278nM (U)5.0 [pH]5.0-9.0[facility] – JacksonMAGNESIUMon 02-23-2023 Magnesium [Mass/Vol]1.3 mg/dLCritically low1.8-2.4The [facility] CenterComment on above:Performed By: #### MG #### [facility] [address] [place] [address] Dr. Anamika VargheseAlbumin [Mass/volume] in Serum or PlasmaOrdered By: Vinay Matta on 69-08-8859Cgssnqj [Mass/Vol]3.6 g/dL3.2-5.5FJ.W. Ruby Memorial HospitalAlkaline phosphatase [Enzymatic activity/volume] in Serum or Plasma Ordered By: Vniay Bunting on 05-21-7402NBG [Catalytic activity/Vol]100 U/L32-92 [facility] – JacksonAspartate aminotransferase [Enzymatic activity/volume] in Serum or PlasmaOrdered By: Vinay Bunting on 24-90-2386GDO [Catalytic activity/Vol]31 U/H24-72JnsapzxwlHolzer Medical Center – JacksonBasophils Auto (Bld) [#/Vol]Ordered By: Vinay Bunting on 32-18-2012Hxtguedmg (Bld) [#/Vol]0.0 10*3/uL0.0-0.2FJ.W. Ruby Memorial HospitalBasophils/100 WBC Auto (Bld)Ordered By: Vinay Bunting on 42-39-9418Vwtncewyw/100 WBC (Bld)0.2 %. [facility] – JacksonBilirubin.total [Mass/volume] in Serum or PlasmaOrdered By: Vinay Bunting on 87-10-7776Ynwnatmch [Mass/Vol]0.5 mg/dL 0.3-1.2FJ.W. Ruby Memorial HospitalCalcium [Mass/volume] in Serum or Plasma Ordered By: Vinay Bunting on 52-92-3160Uhpwuuw [Mass/Vol]8.2 mg/dL8.2-10.2 [facility] – JacksonCarbon dioxide, total [Moles/volume] in Serum or PlasmaOrdered By: Vinay Bunting on 05-46-4259PS4 [Moles/Vol]28.0 mmol/L 22.0-30.0[facility] – JacksonChloride [Moles/volume] in Serum or PlasmaOrdered By: Vinay Bunting on 74-37-0991Nolfhmod [Moles/Vol]101 mmol/L 95-114[facility] – JacksonCholesterol [Mass/volume] in Serum or PlasmaOrdered By: Vinay Bunting on 95-12-7957Rzwnqmzbjrq [Mass/Vol]130 mg/dL 140-200[facility] – JacksonComment on above:Chol less than 200 mg/dl low riskChol 201-239 mg/dl borderline riskChol 240 mg/dl and greater high riskCholesterol in LDL Calc [Mass/Vol]Ordered By: Vinay Bunting on 01-16-2023 Cholesterol in LDL [Mass/Vol]74 mg/dL0-100[facility] Comment on above:LDL ATP III CLASSIFICATIONLDL less than 100 mg/dL OptimalLDL 100-129 mg/dL Near or above efmaldyIND650-298 mg/dL Borderline highLDL 160-189 mg/dL HighLDL greater than 189 mg/dL Very highCholesterol in VLDL Calc [Mass/Vol]Ordered By: Vinay Bunting on 97-67-7553Qqcdxxljhne in VLDL [Mass/Vol] 21 mg/dLHolzer Medical Center – JacksonCreatinine and Glomerular filtration rate.predicted panel (S/P/Bld)Ordered By: Vinay Bunting on 39-23-1943Bfjvtbcjpv [Mass/Vol]1.51 mg/dL0.44-1.03[facility] – JacksonEosinophils Auto (Bld) [#/Vol]Ordered By: Vinay Bunting on 99-79-1023Sswatuhpwoe (Bld) [#/Vol] 0.1 10*3/uL0.0-0.45[facility] – JacksonEosinophils/100 WBC Auto (Bld)Ordered By: Vinay Bunting on 04-12-6185Ihnytoavtth/100 WBC (Bld)2.2 %. [facility] – JacksonErythrocyte distribution width Auto (RBC) [Ratio]Ordered By: Vinay Bunting on 72-22-8751Kdzrhlnjhvq distribution width (RBC) [Ratio]17.4 %11.9-15.3FJ.W. Ruby Memorial HospitalEstimated glomerular filtration rate (GFR) non- AmericanOrdered By: Vinay Bunhomer on 76-96-1921GWD/1.73 sq M.predicted among non-blacks MDRD (S/P/Bld) [Vol rate/Area]34 mL/MinHolzer Medical Center – JacksonGlobulin Calc (S) [Mass/Vol] Ordered By: Vinay Bunting on 03-02-2502Kulypxrz (S) [Mass/Vol]2.3 g/dLHolzer Medical Center – JacksonGlucose [Mass/volume] in Serum or PlasmaOrdered By: Vinay Bunting on 34-93-4812Oeupzqc [Mass/Vol]162 mg/tA69-595GcazycquoHolzer Medical Center – JacksonComment on above:ADA recommended reference rangeRandom Glucose Reference Range is dependent on time and content of last meal. Glucose of more than 200 mg/dL in a nonstressed, ambulatory subject supports the diagnosisof Diabetes Mellitus.Glucose mean value [Mass/volume] in Blood Estimated from glycated hemoglobinOrdered By: Vinay Matta on 08-47-6430Ohbhyyp glucose Estimated from glycated hemoglobin (Bld) [Mass/Vol]171 mg/dLHolzer Medical Center – JacksonHematocrit Auto (Bld) [Volume fraction]Ordered By: Vinay Matta on 04-37-2566Llriiwmsfk (Bld) [Volume fraction]31.4 %34.0-46.4FJ.W. Ruby Memorial HospitalHemoglobin A1c percentageOrdered By: Vinay Matta on 01-16-2023 HbA1c (Bld) [Mass fraction]7.6 %4.3-5.6FJ.W. Ruby Memorial HospitalComment on above:Increased risk for diabetes: 5.7 - 6.4diabetes: >6.4glycemic control for adults with diabetes: <7.0Hemoglobin [Mass/volume] in BloodOrdered By: Vinay Matta on 30-11-4737Nujbcmlzde (Bld) [Mass/Vol]10.6 g/dL11.8-15.4 [facility] – JacksonLeukocytes [#/volume] corrected for nucleated erythrocytes in Blood by Automated counOrdered By: Vinay Matta on 01-16-2023 WBC corrected for nucl RBC Auto (Bld) [#/Vol]5.7 10*3/uL3.8-11.6FJ.W. Ruby Memorial HospitalLymphocytes Auto (Bld) [#/Vol]Ordered By: Vinay Matta on 93-33-3023Zqqpwxciuhf (Bld) [#/Vol]1.3 10*3/uL1.00-4.8[facility] – JacksonLymphocytes/100 WBC Auto (Bld)Ordered By: Vinay Matta on 15-93-2663Xqohfzeoxsl/100 WBC (Bld)22.6 %.[facility] Auto (RBC) [Entitic mass]Ordered By: Vinay Matta on 50-37-0922CFV (RBC) [Entitic mass]28.7 pg24.7-34.3FJ.W. Ruby Memorial HospitalMCHC Auto (RBC) [Mass/Vol]Ordered By: Vinay Matta on 14-01-1412UDUD (RBC) [Mass/Vol]33.7 g/dL 32.0-35.0[facility] – JacksonMCV Auto (RBC) [Entitic vol]Ordered By: Vinay Bunting on 11-53-8799TQN (RBC) [Entitic vol]85.1 aD05-408AtmtjftukHolzer Medical Center – JacksonMonocytes Auto (Bld) [#/Vol]Ordered By: Vinay Bunting on 29-49-1262Wncsejowu (Bld) [#/Vol]0.3 10*3/uL0.0-0.8[facility] – JacksonMonocytes/100 WBC Auto (Bld)Ordered By: Vinay Bunting on 01-16-2023 Monocytes/100 WBC (Bld)4.5 %.[facility] – JacksonNeutrophils Auto (Bld) [#/Vol]Ordered By: Vinay Bunting on 95-89-8035Xqqxdyoeqhl (Bld) [#/Vol] 4.0 10*3/uL1.8-7.7FJ.W. Ruby Memorial HospitalNeutrophils/100 WBC Auto (Bld)Ordered By: Vinay Bunting on 14-24-6207Srdhlqntllo/100 WBC (Bld)70.5 %. [facility] – JacksonNo Panel InformationOrdered By: Vinay Matta on 31-40-8820Ghgvkdivp GFR ()41 mL/MinHolzer Medical Center – JacksonComment on above:GFR estimated reference range: According to KDOQI guidelines, <60 ml/min/1.73m2 is sufficient todiagnose a patient with chronic kidney disease.Pharmacy Creatinine Clearance (ChemN/[facility] Medical CenterNucleated erythrocytes [Presence] in Blood by Automated countOrdered By: Vinay Matta on 22-69-8648Fiaegztuo RBC Auto Ql (Bld)0.1 /100{WBC}0-0.5 [facility] – JacksonPlatelet mean volume Auto (Bld) [Entitic vol] Ordered By: Vinay Matta on 51-01-6702Kfilyhte mean volume (Bld) [Entitic vol] 7.4 fL6.3-10.7FJ.W. Ruby Memorial HospitalPlatelets Auto (Bld) [#/Vol] Ordered By: Vinay Bunting on 30-00-4305Imxyyxzuw (Bld) [#/Vol]152 10*3/uL 150-450Hol[facility] – JacksonPotassium [Moles/volume] in Serum or PlasmaOrdered By: Vinay Bunting on 57-06-2539Gtdmlltam [Moles/Vol]4.0 mmol/L 3.5-5.1FJ.W. Ruby Memorial HospitalProtein [Mass/volume] in Serum or Plasma Ordered By: Vinay Bunting on 97-15-1676Ginpfts [Mass/Vol]5.9 g/dL6.1-7.9 [facility] – JacksonRBC Auto (Bld) [#/Vol]Ordered By: Vinay Bunting on 02-83-8909XWZ (Bld) [#/Vol]3.69 10*6/uL3.60-5.00Mer[facility] Clermont Hospitalerum or plasma alanine aminotransferase measurement without P-5'-P (enzymatic activiOrdered By: Vinay Bunting on 71-52-1680KUZ No additional P-5'-P [Catalytic activity/Vol]26 U/U24-71UoamafdeiMercy Health Clermont Hospitalerum or plasma albumin/globulin mass ratioOrdered By: Vinay Bunting on 64-46-8180Ordndsg/Globulin [Mass ratio]1.6 {ratio}[facility] Hospitalerum or plasma anion gap determinationOrdered By: Vinay Bunting on 56-47-9920Tsfxh gap [Moles/Vol]16.0 mmol/L6.0-15.0[facility] Hospitalerum or plasma high density lipoprotein (HDL) cholesterol measurement Ordered By: Vinay Bunting on 53-54-6715Yzpgkdsvwrq in HDL [Mass/Vol]34 mg/dL 35-85Hol[facility] – JacksonComment on above:HDL CHOL ATP-III CLASSIFICATION Cardiovascular RiskHDL > or equal to 60 mg/dL LOWHDL < 40 mg/dL HIGHSerum or plasma total cholesterol/high density lipoprotein (HDL) cholesterol mass ratOrdered By: Vinay Bunting on 53-45-0894Orrjskncnsq.total/Cholesterol in HDL [Mass ratio]3.8 {ratio}<5.0Mer[facility] Clermont Hospitalodium [Moles/volume] in Serum or PlasmaOrdered By: Vinay Matta on 51-12-6892Oidkxj [Moles/Vol]141 mmol/M317-645QzbqenxfrHolzer Medical Center – JacksonTriglyceride [Mass/volume] in Serum or PlasmaOrdered By: Vinay Matta on 01-16-2023 Triglyceride [Mass/Vol]109 mg/fQ09-890LlnoajvliHolzer Medical Center – JacksonComment on above:TRIG ATP III CLASSIFICATIONTRIG less than 150 mg/dL NormalTRIG 150-199 mg/dL Borderline highTRIG 200-500 mg/dL High TRIG greater than 500 mg/dL Very highStandard traceable to the Center for Disease Conrtrol and Prevention (CDC) test method.Urate [Mass/volume] in Serum or PlasmaOrdered By: Vinay Matta on 61-83-0220Kkarn [Mass/Vol]5.7 mg/dL2.6-7.2FJ.W. Ruby Memorial HospitalUrea nitrogen [Mass/volume] in Serum or PlasmaOrdered By: Vinay Matta on 46-14-8548Gyfc nitrogen [Mass/Vol]42 mg/dL9-23[facility] WBC Auto (Bld) [#/Vol]Ordered By: Vinay Matta on 09-35-2947KKQ (Bld) [#/Vol] 5.7 10*3/uL3.8-11.6FJ.W. Ruby Memorial HospitalGlucose Glucometer (BldC) [Mass/Vol]Ordered By: Rafael Edouard on 67-45-7240Pyrfjak [Mass/Vol]165 mg/dL [facility] – JacksonComment on above:Random Glucose Reference Range is dependent on time and content of last meal. Glucose of more than 200 mg/dL in a nonstressed, ambulatory subject supports the diagnosis of Diabetes Mellitus.CBC W Auto Differential panel (Bld)on 14-95-1692Azvshiaxa (Bld) [#/Vol] <0.11 k/uLUniversity Hospitals Elyria Medical CenterBasophils/100 WBC (Bld)0.4 %[facility] Differential cell count method Nom (Bld)AutoCleveland ClinicEosinophils (Bld) [#/Vol]0.12 10*3/uL<0.46 k/uLCleRegency Hospital CompanyEosinophils/100 WBC (Bld)2.2 % [facility] Medical CenterErythrocyte distribution width (RBC) [Ratio]16.9 %High11.5 - 15.0 %[facility] Medical CenterHematocrit (Bld) [Volume fraction]27.7 %Low36.0 - 46.0 % [facility] Medical CenterHemoglobin (Bld) [Mass/Vol]8.5 g/dLLow11.5 - 15.5 g/dLUniversity Hospitals Elyria Medical CenterImmature granulocytes (Bld) [#/Vol]<0.10 k/uLUniversity Hospitals Elyria Medical CenterImmature granulocytes/100 WBC (Bld)0.2 %[facility]ly[facility] Medical CenterLymphocytes (Bld) [#/Vol]1.07 10*3/uL1.00 - 4.00 k/uLUniversity Hospitals Elyria Medical CenterLymphocytes/100 WBC (Bld)19.6 %[facility] HospitalH (RBC) [Entitic mass]25.3 pgLow26.0 - 34.0 pgClevelUnited HospitalHC (RBC) [Mass/Vol]30.7 g/dL30.5 - 36.0 g/dLWVUMedicine Harrison Community HospitalV (RBC) [Entitic vol]82.4 fL80.0 - 100.0 fLCleveland ClinicMonocytes (Bld) [#/Vol]0.25 10*3/uL<0.87 k/uL LariosRegency Hospital CompanyMonocytes/100 WBC (Bld)4.6 %[facility] Medical CenterNeutrophils (Bld) [#/Vol]3.99 10*3/uL1.45 - 7.50 k/uLUniversity Hospitals Elyria Medical CenterNeutrophils/100 WBC (Bld)73.0 %[facility] Medical CenterNucleated RBC (Bld) [#/Vol]<0.01 k/uLUniversity Hospitals Elyria Medical CenterNucleated RBC/100 WBC (Bld) [Ratio]0.0 /100 WBCUniversity Hospitals Elyria Medical CenterPlatelet mean volume (Bld) [Entitic vol]9.4 fL9.0 - 12.7 fLCleveland ClinicPlatelets (Bld) [#/Vol]170 10*3/uL150 - 400 k/uLCleveland ClinicRBC (Bld) [#/Vol]3.36 10*6/uLLow3.90 - 5.20 m/[facility] Medical CenterWBC (Bld) [#/Vol]5.46 10*3/uL3.70 - 11.00 k/[facility] Medical CenterComprehensive metabolic 2000 panelon 46-98-8503Wzvmnro [Mass/Vol]4.3 g/dL 3.9 - 4.9 g/dLWitter ClinicALP [Catalytic activity/Vol]120 U/L34 - 123 U/L Witter ClinicALT [Catalytic activity/Vol]20 U/L7 - 38 U/LCleveland [facility] Anion gap [Moles/Vol]12 mmol/L9 - 18 mmol/LCleveland ClinicAST [Catalytic activity/Vol]28 U/L13 - 35 U/LCleveland [address] [facility] Medical CenterBilirubin [Mass/Vol]0.2 mg/dL0.2 - 1.3 mg/dLWitter ClinicCalcium [Mass/Vol]8.8 mg/dL8.5 - 10.2 mg/dLUniversity Hospitals Elyria Medical CenterChloride [Moles/Vol]109 mmol/LHigh97 - 105 mmol/LCleveland ClinicCO2 [Moles/Vol]27 mmol/L22 - 30 mmol/LCleveland ClinicCreatinine [Mass/Vol]1.34 mg/dLHigh0.58 - 0.96 mg/dLUniversity Hospitals Elyria Medical CenterEstimated Glomerular Filtration Rate42 mL/min/1.73mLow>=60 mL/min/1.73mCleveland St. Francis Regional Medical CenterGlucose [Mass/Vol]191 mg/dLHigh 74 - 99 mg/dLUniversity Hospitals Elyria Medical CenterPotassium [Moles/Vol]3.7 mmol/L3.7 - 5.1 mmol/L Witter ClinicProtein [Mass/Vol]6.8 g/dL6.3 - 8.0 g/dLWitter ClinicSodium [Moles/Vol]148 mmol/WAcqa384 - 144 mmol/LCleveland [address] [facility] Medical CenterUrea nitrogen [Mass/Vol]35 mg/dLHigh7 - 21 mg/dLUniversity Hospitals Elyria Medical CenterLD LACTATE DEHYDROon 42-34-2802POM [Catalytic activity/Vol]163 U/L135 - 214 U/LCleveland ClinicRETIC COUNTon 91-37-0114Uathizydggbhe (Bld) [#/Vol]0.17263 10*3/uL0.018 - 0.100 M/uL Witter ClinicReticulocytes (Bld) [#/Vol]on 27-54-3399Bjfwazfbahfpl/100 RBC (Bld)2.8 %High0.4 - 2.0 %[facility]lyria Medical CenterHEMATOLOGYOrdered By: SYSTEM SYSTEM on 95-47-5964Ubxywvfox/100 WBC (Bld)0.3 %Normal0.0 - 2.0 %[facility] HemeAutoSS Basophils/Leukocytes Auto (Bld) [Pure # fraction]0.0 E9/LNormal0.0 - 0.2 E9/L [facility] HemeAutoSSEosinophils/100 WBC (Bld)2.3 %Normal0.0 - 8.0 %[facility] HemeAutoSS Eosinophils/Leukocytes Auto (Bld) [Pure # fraction]0.1 E9/LNormal0.0 - 0.5 E9/L [facility] HemeAutoSSLymphocytes/100 WBC (Bld)21.9 %Bzevhd00.0 - 50.0 %[facility] HemeAutoSS Lymphocytes/Leukocytes Auto (Bld) [Pure # fraction]1.3 E9/LNormal1.0 - 4.0 E9/L [facility] HemeAutoSSMonocytes/100 WBC (Bld)5.0 %Normal4.0 - 14.0 %[facility] HemeAutoSS Monocytes/Leukocytes Auto (Bld) [Pure # fraction]0.3 E9/LNormal0.2 - 1.0 E9/L [facility] HemeAutoSSNeutrophils/100 WBC (Bld)70.5 %Cmzxht84.0 - 75.0 %[facility] HemeAutoSS Neutrophils/Leukocytes Auto (Bld) [Pure # fraction]4.3 E9/LNormal2.0 - 7.5 E9/L [facility] HemeAutoSSHEMATOLOGYOrdered By: Tammy Green on 71-62-4711Hznsqppknyc distribution width (RBC) [Ratio]18.3 %High10.9 - 14.2 %[facility] HemeAutoSSHematocrit (Bld) [Volume fraction]27.6 %Low34.0 - 46.0 %[facility] HemeAutoSSHemoglobin (Bld) [Mass/Vol]9.1 g/dLLow12.0 - 16.0 gm/dLFTMC HemeAutoSSMCH (RBC) [Entitic mass] 25.6 pgLow27.0 - 34.0 pgFTMC HemeAutoSSMCHC (RBC) [Mass/Vol]33.1 g/tXFwwmld59.4 - 36.0 gm/dLFTMC HemeAutoSSMCV (RBC) [Entitic vol]77.5 fLLow80.0 - 100.0 fLFTMC HemeAutoSSPlatelet mean volume (Bld) [Entitic vol]7.2 fLNormal6.4 - 10.8 fLFTMC HemeAutoSSPlatelets (Bld) [#/Vol]189.0 E9/QWwddyp898.0 - 500.0 E9/LFMEMORIAL HOSPITAL [facility] HemeAutoSSRBC (Bld) [#/Vol]3.6 E12/LLow4.3 - 5.9 E12/LFMEMORIAL HOSP[facility] HemeAutoSSWBC corrected for nucl RBC Auto (Bld) [#/Vol]6.1 E9/LNormal4.0 - 11.0 E9/LFMEMORIAL H[facility] HemeAutoSSBNPon 00-15-1371Jyperlamnhc peptide B (Bld) [Mass/Vol]146.0 pg/mL Normal<=900.0The [facility] CenterComment on above:Performed By: #### BNP #### [facility] [address] [place] [address] Dr. Anamika Brown AUTO DIFFon 62-82-7005JMGB #0.0 103/ulNormal0.0-0.1The [facility] CenterComment on above:Performed By: #### CBC #### [facility] [address] [place] [address] Dr. Anamika Peñaphils/100 WBC (Bld)0.4 %Normal0.2-2.0[facility] Comment on above:Performed By: #### CBC #### [facility] [address] [place] [address] Dr. Anamika Barth #0.2 103/ulNormal0.0-0.7The [facility] Medical CenterComment on above: Performed By: #### CBC #### [facility] [address] [address] [address] Anamika Holdenosinophils/100 WBC (Bld)3.6 %Normal0.9-7.0[facility] Comment on above:Performed By: #### CBC #### [facility] [address] [place] [address] Dr. Anamika Holdenrythrocyte distribution width (RBC) [Ratio]16.4 %Critically high 11.0-15.0The [facility] CenterComment on above:Performed By: #### CBC #### [facility] [address] [place] [address] Dr. Anamika VargheseHematocrit (Bld) [Volume fraction]28.9 %Critically low36.0-48.0 [facility] CenterComment on above:Performed By: #### CBC #### [facility] [address] [place] [address] Dr. Anamika VargheseHemoglobin (Bld) [Mass/Vol]9.0 g/dLCritically low12.0-16.0The [facility] CenterComment on above:Performed By: #### CBC #### [facility] [address] [place] [address] Dr. Anamika Keane #0.02 10e3/ulNormal0.00-0.03The [facility] Medical CenterComment on above:Performed By: #### CBC #### [facility] [address] [place] [address] Dr. Anamika Keane %0.3 %Normal0.0-0.5The [facility] Medical CenterComment on above: Performed By: #### CBC #### [facility] [address] [place] [address] Dr. Anamika Portillo #1.8 103/ulNormal1.2-3.8The [facility] CenterComment on above:Performed By: #### CBC #### [facility] [address] [place] [address] Dr. Anamika Cohnmphocytes/100 WBC (Bld)26.1 %Etnzqr00.5-60.0The [facility] CenterComment on above:Performed By: #### CBC #### [facility] [address] [address] [address] Anamika Fuentes DIFF REQNONormalThe Sycamore Medical CenterComment on above: Performed By: #### CBC #### [facility] [address] [address] [address] Anamika Jean (RBC) [Entitic mass]25.8 pgCritically low26.7-34.0The [facility] CenterComment on above:Performed By: #### CBC #### [facility] [address] [place] [address] Dr. Anamika Jean (RBC) [Mass/Vol]31.1 g/rBYwarlc83.9-35.2The [facility] CenterComment on above:Performed By: #### CBC #### [facility] [address] [place] [address] Dr. Anamika Jean (RBC) [Entitic vol]82.8 oBMedknt47.0-99.0The [facility] CenterComment on above:Performed By: #### CBC #### [facility] [address] [place] [address] Dr. Anamika Gerber #0.3 103/ulNormal0.3-0.8The [facility] Medical CenterComment on above:Performed By: #### CBC #### [facility] [address] [place] [address] Dr. Anamika Beaulieuocytes/100 WBC (Bld)5.0 %Normal1.7-12.0The [facility] Comment on above:Performed By: #### CBC #### [facility] [address] [address] [address] Anamika Rowe #4.4 103/ulNormal1.4-6.5The [facility] Medical CenterComment on above:Performed By: #### CBC #### [facility] [address] [place] [address] Dr. Anamika Bautistautrophils/100 WBC (Bld)64.6 %Mjtyol52.0-75.0The [facility] on above:Performed By: #### CBC #### [facility] [address] [address] [address] Anamika Millslet mean volume (Bld) [Entitic vol]8.7 fLCritically low 9.5-13.5The [facility] on above:Performed By: #### CBC #### [facility] [address] [address] [address] Anamika VarghesePLT188 103/yvEsieiw414-812Jqm [facility] on above: Performed By: #### CBC #### [facility] [address] [place] [address] Dr. Anamika VargheseRBC3.49 106/ulCritically low4.20-5.40The [facility] on above:Performed By: #### CBC #### [facility] [address] [place] [address] Dr. Anamika VargheseWBC6.7 103/ulNormal4.0-11.0The [facility] on above: Performed By: #### CBC #### [facility] [address] [place] [address] Dr. Anamika VargheseGLYCOHEMOGLOBIN A1Con 58-92-2401AWP RECOMMENDATIONSEE BELOWNormal [facility] on above:Result Comment: ADA RECOMMENDED LIMIT 4.0 - 6.0 ADA THERAPEUTIC TARGET < 7.0 ACTION SUGGESTED > 7.0Performed By: #### FETIBC FERR, B12FOL #### [facility] [address] [place] [address] Dr. Anamika VargheseGlucose [Mass/Vol]166 mg/dLNormalThe [facility] on above:Performed By: #### FETIBC, FERR, B12FOL #### [facility] [address] [place] [address] Dr. Anamika VargheseHbA1c (Bld) [Mass fraction]7.4 %Critically high4.5-6.2The [facility] on above:Performed By: #### FETIBC, FERR, B12FOL #### [facility] [address] [address] [address] Anamika RossID PROFILEon 08-18-4597GJUL-HDL RATIO NORMSAshtabula County Medical CenterComment on above:Result Comment: 3.3 - 4.4 LOW RISK 4.4 - 7.1 AVERAGE RISK 7.1 - 11.0 MODERATE RISK >11.0 HIGH RISKPerformed By: #### LIPID, CMP #### [facility] [address] [address] [address] Anamika aVrgheseCholesterol [Mass/Vol]118 mg/dLNormal<=200The [facility] Comment on above:Performed By: #### LIPID, CMP #### [facility] [address] [address] [address] Anamika VargheseCholesterol in HDL [Mass/Vol]41 mg/wQJnrokh14-95TqsOhiohealth Grove City Methodist HospitalComment on above:Performed By: #### LIPID, CMP #### [facility] [address] [place] [address] Dr. Anamika VargheseCholesterol in LDL [Mass/Vol]60.4 mg/dLSelect Medical Specialty Hospital - Boardman, IncComment on above:Performed By: #### LIPID, CMP #### [facility] [address] [place] [address] Dr. Anamika Dejesusestertomi.total/Cholesterol in HDL [Mass ratio]2.9 {ratio} NormalOhiohealth Grove City Methodist HospitalComment on above:Performed By: #### LIPID, CMP #### [facility] [address] [place] [address] Dr. Anamika MontanoL NORMAL> or = 60 mg/dl - LOW CARDIOVASCULAR RISK <40 mg/dl - HIGH CARDIOVASCULAR RISKSelect Medical Specialty Hospital - Boardman, IncComment on above:Performed By: #### LIPID, CMP #### [facility] [address] [place] [address] Dr. Anamika VargheseLDL CALC NORMALSEE Lima City HospitalComment on above:Result Comment: <100 mg/dl OPTIMAL 100 - 129 mg/dl NEAR OR ABOVE OPTIMAL 130 - 159 mg/dl BORDERLINE HIGH 160 - 189 mg/dl HIGH >190 mg/dl VERY HIGH Performed By: #### LIPID, CMP #### [facility] [address] [place] [address] Dr. Anamika VargheseTriglyceride [Mass/Vol]83 mg/dLNormal<=150[facility] Comment on above:Performed By: #### LIPID, CMP #### [facility] [address] [place] [address] Dr. Anamika GamboaLDL CALC16.6 mg/dLNoUC Medical CenterComment on above: Performed By: #### LIPID, CMP #### [facility] [address] [place] [address] Dr. Anamika HammROALGm CREAT RATIO RANDOMon 93-73-3237iQWG<1.3Normal<=30.0The [facility] Medical CenterComment on above:Performed By: #### FETIBC, FERR, B12FOL #### [facility] [address] [place] [address] Dr. Anamika Maki CR RATIO22.0 mg/gNormal0.0-29.9The [facility] Medical CenterComment on above:Performed By: #### FETIBC, FERR, B12FOL #### [facility] [address] [place] [address] Dr. Anamika Maki CR RATIO RANGESEE BELOWNoUC Medical CenterComment on above:Result Comment: NO MICROALBUMINURIA 0-29 MG/G CLINICAL MICROALBUMINURIA 30-300 MG/G MACROALBUMINURIA >300 MG/GPerformed By: #### FETIBC, FERR, B12FOL #### [facility] [address] [place] [address] Dr. Anamika Montiel CREAT59.04 mg/vOYmkwqr64.00-300.00[facility] Comment on above:Performed By: #### FETIBC, FERR, B12FOL #### [facility] [address] [place] [address] Dr. Anamika VarghesePROReinaldo 14(COMP METB)on 16-48-8546Xthmxam [Mass/Vol]3.6 g/dLNormal 3.4-5.0The [facility] Medical CenterComment on above:Performed By: #### LIPID, CMP #### [facility] [address] [place] [address] Dr. Anamika VargheseAlbumin/Globulin [Mass ratio]1.0 {ratio}NormalThe [facility]ore Medical CenterComment on above:Performed By: #### LIPID, CMP #### [facility] [address] [address] [address] Aanmika McqueenP [Catalytic activity/Vol]128 U/LCritically mrkn16-287Lia [facility] CenterComment on above:Performed By: #### LIPID, CMP #### [facility] [address] [place] [address] Dr. Anamika Cook [Catalytic activity/Vol]30 U/ECodqjd01-86Dhh [facility] CenterComment on above:Performed By: #### LIPID, CMP #### [facility] [address] [place] [address] Dr. Anamika Winn gap [Moles/Vol]14.9 mmol/LNormalThe [facility] Comment on above:Performed By: #### LIPID, CMP #### [facility] [address] [place] [address] Dr. Anamika Barber [Catalytic activity/Vol]23 U/SIssqmm43-43Ica [facility] CenterComment on above:Performed By: #### LIPID, CMP #### [facility] [address] [place] [address] Dr. Anamika VargheseBilirubin [Mass/Vol]0.3 mg/dLNormal0.2-1.0The [facility] Comment on above:Performed By: #### LIPID, CMP #### [facility] [address] [place] [address] Dr. Anamika VargheseCalcium [Mass/Vol]8.6 mg/dLNormal8.5-10.1The [facility] Comment on above:Performed By: #### LIPID, CMP #### [facility] [address] [place] [address] Dr. Anamika VargheseChloride [Moles/Vol]105 mmol/SSqipzm01-021Had [facility] Comment on above:Performed By: #### LIPID, CMP #### [facility] [address] [place] [address] Dr. Anamika VargheseCO2 [Moles/Vol]28.1 mmol/ATbfrfp53.0-32.0The [facility] Comment on above:Performed By: #### LIPID, CMP #### [facility] [address] [place] [address] Dr. Anamika VargheseCreatinine [Mass/Vol]1.58 mg/dLCritically high0.55-1.02[facility] Methodist HospitalComment on above:Performed By: #### LIPID, CMP #### [facility] [address] [place] [address] Dr. Anamika HoldenGFR-AF FESGKCBY91 mL/min/1.61h3Zzalsyxdmk low>=60The [facility] Medical CenterComment on above:Performed By: #### LIPID, CMP #### [facility] [address] [place] [address] Dr. Anamika HoldenGFR-NON AF FHKDOLEB79 mL/min/1.89l7Lozxqcvmje low>=60The [facility] Medical CenterComment on above:Performed By: #### LIPID, CMP #### [facility] [address] [place] [address] Dr. Anamika VargheseGlobulin (S) [Mass/Vol]3.6 g/dLNormalThe [facility] Medical CenterComment on above:Performed By: #### LIPID, CMP #### [facility] [address] [place] [address] Dr. Anamika VargheseGlucose [Mass/Vol]130 mg/dLCritically fkyo68-670ZopOhiohealth Grove City Methodist HospitalComment on above:Performed By: #### LIPID, CMP #### [facility] [address] [place] [address] Dr. Anamika VarghesePotassium [Moles/Vol]4.0 mmol/LNormal3.5-5.1The [facility] Comment on above:Performed By: #### LIPID, CMP #### [facility] [address] [address] [address] Anamika VargheseProtein [Mass/Vol]7.2 g/dLNormal6.4-8.2The [facility] Comment on above:Performed By: #### LIPID, CMP #### [facility] [address] [address] [address] Anamika VargheseSodium [Moles/Vol]144 mmol/HJayhkn138-909Itm [facility] Comment on above:Performed By: #### LIPID, CMP #### [facility] [address] [address] [address] Anamika VargheseUrea nitrogen [Mass/Vol]53.0 mg/dLCritically high7.0-18.0The [facility] Medical CenterComment on above:Performed By: #### LIPID, CMP #### [facility] [address] [place] [address] Dr. Anamika VargheseUrea nitrogen/Creatinine [Mass ratio]33.5 mg/mgNormalThe [facility] CenterComment on above:Performed By: #### LIPID, CMP #### [facility] [address] [place] [address] Dr. Anamika VargheseCreatinine and Glomerular filtration rate.predicted panel (S/P/Bld)Ordered By: Anand Yusuf on 70-70-6043Dlnjlgtacw [Mass/Vol]1.41 mg/dL 0.44-1.03[facility] – JacksonEstimated glomerular filtration rate (GFR) non- AmericanOrdered By: Anand Yusuf on 39-99-5103ZFH/1.73 sq M.predicted among non-blacks MDRD (S/P/Bld) [Vol rate/Area]37 mL/MinHolzer Medical Center – JacksonNo Panel InformationOrdered By: Anand Yusuf on 53-56-0505Itzsrmlxd GFR ()44 mL/MinHolzer Medical Center – JacksonComment on above:GFR estimated reference range: According to KDOQI guidelines, <60 ml/min/1.73m2 is sufficient todiagnose a patient with chronic kidney disease.Pharmacy Creatinine Clearance ([facility] Centererum or plasma anion gap determinationOrdered By: Anand Yusuf on 07-38-2272Edwwr gap [Moles/Vol]17.5 mmol/L6.0-15.0[facility] Hospitalerum or plasma calcium measurement (mass/volume)Ordered By: Anand Yusuf on 54-34-7070Beetsqu [Mass/Vol]8.5 mg/dL8.2-10.2FProMedica Memorial Hospitalerum or plasma chloride measurement (moles/volume)Ordered By: Anand Yusuf on 67-89-6145Kzcsjchl [Moles/Vol]105 mmol/Y70-579KpcgdmsqaMercy Health Clermont Hospitalerum or plasma glucose measurement (mass/volume)Ordered By: Anand Yusuf on 02-43-6317Pnzanac [Mass/Vol]97 mg/pX89-652HqqrrveytHolzer Medical Center – JacksonComment on above:ADA recommended reference range Random Glucose [...] potassium measurement (moles/volume)Ordered By: Anand Yusuf on 98-64-0290Gpqljmymd [Moles/Vol]4.3 mmol/L3.5-5.1FProMedica Memorial Hospitalerum or plasma sodium measurement (moles/volume)Ordered By: Anand Yusuf on 31-09-0179Vaausn [Moles/Vol]141 mmol/I521-726NkouahsblMercy Health Clermont Hospitalerum or plasma total carbon dioxide measurement (moles/volume)Ordered By: Anand Yusuf on 35-39-1858RQ9 [Moles/Vol]22.8 mmol/L 22.0-30.0[facility] Hospitalerum or plasma urea nitrogen measurement (mass/volume)Ordered By: Anand Yusuf on 97-09-5219Ixyv nitrogen [Mass/Vol]37 mg/dL9-23[facility] – JacksonUrine culture routine Ordered By: Anand Yusuf on 42-43-4533Csciukfm identified Cx Nom (U)Escherichia coliHolzer Medical Center – JacksonAutomated erythrocytes count in urine sediment (number/area)Ordered By: Anand Yusuf on 39-97-5438IYJ Auto (Urine sed) [#/Area]0-1 [HPF]0-4FJ.W. Ruby Memorial HospitalAutomated leukocytes count in urine sediment (number/area)Ordered By: Anand Yusuf on 90-28-3804PVN Auto (Urine sed) [#/Area]5-9 [HPF]0-4FJ.W. Ruby Memorial HospitalBasophils Auto (Bld) [#/Vol]Ordered By: Anand Yusuf on 02-61-7558Xxtpwdrgy (Bld) [#/Vol]0.1 10*3/uL0.0-0.2FJ.W. Ruby Memorial HospitalBasophils/100 WBC Auto (Bld) Ordered By: Anand Yusuf on 92-52-5922Cfgsviyev/100 WBC (Bld)0.5 %.[facility] – JacksonBilirubin Test strip Ql (U)Ordered By: Anand Yusuf on 55-43-8555Pkdwrowuv Ql (U)NegativeNegativeHolzer Medical Center – JacksonBlood hemoglobin measurement (mass/volume)Ordered By: Anand Yusuf on 07-22-2022 Hemoglobin (Bld) [Mass/Vol]9.6 g/dL11.8-15.4FJ.W. Ruby Memorial Hospital Blood leukocytes automated count (number/volume)Ordered By: Anand Yusuf on 75-25-2184QWZ (Bld) [#/Vol]11.6 10*3/uL4.5-11.0[facility] Body fluid albumin measurement (mass/volume)Ordered By: Anand Yusuf on 60-75-6174Myfplrm (Body fld) [Mass/Vol]3.0 g/dL3.2-5.5FJ.W. Ruby Memorial HospitalColor Auto (U)Ordered By: Anand Yusuf on 19-93-3225Hzxzc (U)YellowYellow [facility] – JacksonCreatinine and Glomerular filtration rate.predicted panel (S/P/Bld)Ordered By: Anand Yusuf on 24-06-8442Zenwxkvvlo [Mass/Vol]1.63 mg/dL0.44-1.03[facility] – JacksonEosinophils Auto (Bld) [#/Vol]Ordered By: Anand Yusuf on 25-68-8981Bfoupprsmah (Bld) [#/Vol]0.1 10*3/uL0.0-0.45[facility] – JacksonEosinophils/100 WBC Auto (Bld) Ordered By: Anand Yusuf on 58-37-8216Jqzvzeftdzf/100 WBC (Bld)1.0 %.[facility] – JacksonErythrocyte distribution width Auto (RBC) [Ratio]Ordered By: Anand Yusuf on 47-29-2117Tvmynhktmze distribution width (RBC) [Ratio]17.0 % 11.9-15.3FJ.W. Ruby Memorial HospitalEstimated glomerular filtration rate (GFR) non- AmericanOrdered By: Anand Yusuf on 14-31-4474FOF/1.73 sq M.predicted among non-blacks MDRD (S/P/Bld) [Vol rate/Area]31 mL/MinHolzer Medical Center – JacksonGlobulin Calc (S) [Mass/Vol]Ordered By: Anand Yusuf on 67-14-4243Eyhdffxw (S) [Mass/Vol]3.3 g/dLHolzer Medical Center – Jackson Hematocrit Auto (Bld) [Volume fraction]Ordered By: Anand Yusuf on 07-22-2022 Hematocrit (Bld) [Volume fraction]28.6 %34.0-46.4FJ.W. Ruby Memorial HospitalKetones Auto test strip (U) [Mass/Vol]Ordered By: Anand Yusuf on 91-43-6182Riduhmo (U) [Mass/Vol]TraceNegativeHolzer Medical Center – Jackson Laboratory - Chemistry and Chemistry - challengeOrdered By: Anand Yusuf on 93-94-1791Eulzmkxcf [Mass/Vol]1.4 mg/dL1.6-2.6FJ.W. Ruby Memorial Hospital Natriuretic peptide B (Bld) [Mass/Vol]44.0 pg/mL5-100[facility] JacksonLaboratory - Hematology and Cell countsOrdered By: Anand Yusuf on 96-79-7308Jihufeuxz RBC/100 WBC (Bld) [Ratio]0.0 %0-0.5FJ.W. Ruby Memorial HospitalLaboratory - UrinalysisOrdered By: Anand Yusuf on 07-22-2022 Hyaline casts LM Ql (Urine sed)0-8 [LPF]0-8[facility] Lymphocytes Auto (Bld) [#/Vol]Ordered By: Anand Yusuf on 54-18-9529Jdcsvlepqfn (Bld) [#/Vol]1.5 10*3/uL1.00-4.8[facility] – JacksonLymphocytes/100 WBC Auto (Bld)Ordered By: Anand Yusuf on 70-00-1234Jbyemlualgx/100 WBC (Bld) 13.0 %.[facility] HospitalH Auto (RBC) [Entitic mass]Ordered By: Anand Yusuf on 14-19-9514AWT (RBC) [Entitic mass]27.3 pg24.7-34.3FJ.W. Ruby Memorial HospitalMCHC Auto (RBC) [Mass/Vol]Ordered By: Anand Yusuf on 35-13-4604XAKW (RBC) [Mass/Vol]33.5 g/dL32.0-35.0[facility] – JacksonMCV Auto (RBC) [Entitic vol]Ordered By: Anand Yusuf on 48-06-7659EWZ (RBC) [Entitic vol]81.3 oB30-573JtzduubxiHolzer Medical Center – JacksonMonocytes Auto (Bld) [#/Vol]Ordered By: Anand Yusuf on 24-32-4090Hqhhdihnl (Bld) [#/Vol]0.5 10*3/uL0.0-0.8[facility] – JacksonMonocytes/100 WBC Auto (Bld) Ordered By: Anand Yusuf on 14-90-0398Wxgawnoub/100 WBC (Bld)4.1 %.[facility] – JacksonNeutrophils Auto (Bld) [#/Vol]Ordered By: Anand Yusuf on 64-46-5704Cptwmgugyht (Bld) [#/Vol]9.5 10*3/uL1.8-7.7FJ.W. Ruby Memorial HospitalNeutrophils/100 WBC Auto (Bld)Ordered By: Anand Yusuf on 07-22-2022 Neutrophils/100 WBC (Bld)81.4 %.[facility] – JacksonNitrite Test strip Ql (U)Ordered By: Anand Yusuf on 60-93-9939Wrwarpl Ql (U)NegativeNegative [facility] – JacksonNo Panel InformationOrdered By: Anand Yusuf on 07-26-7194Fhejxdrdu GFR ()37 mL/MinHolzer Medical Center – JacksonComment on above:GFR estimated reference range: According to KDOQI guidelines, <60 ml/min/1.73m2 is sufficient todiagnose a patient with chronic kidney disease.Pharmacy Creatinine Clearance (Chem34.96[facility] – JacksonPlatelet mean volume Auto (Bld) [Entitic vol]Ordered By: Anand Yusuf on 95-48-6405Eomsrcfx mean volume (Bld) [Entitic vol]7.3 fL6.3-10.7 [facility] – JacksonPlatelets Auto (Bld) [#/Vol]Ordered By: Anand Yusuf on 50-48-9934Aikqmyvgw (Bld) [#/Vol]253 10*3/xS065-189VujrhqhbgHolzer Medical Center – JacksonProtein Auto test strip (U) [Mass/Vol]Ordered By: Anand Yusuf on 97-27-4210Tooxvuc (U) [Mass/Vol]NegativeNegativeHolzer Medical Center – JacksonProtein [Mass/volume] in Serum or PlasmaOrdered By: Anand Yusuf on 49-17-3430Xcblebz [Mass/Vol]6.3 g/dL6.1-7.9[facility] – JacksonRBC Auto (Bld) [#/Vol]Ordered By: Anand Yusuf on 92-80-4246RAE (Bld) [#/Vol]3.51 10*6/uL3.60-5.00[facility] Hospitalerum or plasma alanine aminotransferase measurement without P-5'-P (enzymatic activiOrdered By: Anand Yusuf on 83-09-0395YZB No additional P-5'-P [Catalytic activity/Vol]29 U/L10-60 [facility] Hospitalerum or plasma albumin/globulin mass ratio Ordered By: Anand Yusuf on 46-61-8739Iqkfwis/Globulin [Mass ratio]0.9 {ratio} [facility] Hospitalerum or plasma alkaline phosphatase measurement (enzymatic activity/volume)Ordered By: Anand Yusuf on 31-46-6406IOA [Catalytic activity/Vol]99 U/K54-26AvxhzmbbzMercy Health Clermont Hospitalerum or plasma anion gap determinationOrdered By: Anand Yusuf on 07-63-4737Qdpsk gap [Moles/Vol]14.3 mmol/L6.0-15.0[facility] Hospitalerum or plasma aspartate aminotransferase measurement (enzymatic activity/volume)Ordered By: Anand Yusuf on 20-90-5512ZLS [Catalytic activity/Vol]31 U/H38-02ZnyvehehgMercy Health Clermont Hospitalerum or plasma calcium measurement (mass/volume)Ordered By: Anand Yusuf on 95-88-5582Ivkectp [Mass/Vol]9.0 mg/dL8.2-10.2FProMedica Memorial Hospitalerum or plasma chloride measurement (moles/volume) Ordered By: Anand Yusuf on 76-57-3109Jimgratt [Moles/Vol]107 mmol/L95-114 [facility] Hospitalerum or plasma glucose measurement (mass/volume)Ordered By: Anand Yusuf on 45-34-5557Mbjdzid [Mass/Vol]168 mg/dL 70-100[facility] – JacksonComment on above:ADA recommended reference range Random Glucose [...] potassium measurement (moles/volume)Ordered By: Anand Yusuf on 24-33-4006Uhkkzgpwg [Moles/Vol]5.4 mmol/L3.5-5.1FProMedica Memorial Hospitalerum or plasma sodium measurement (moles/volume)Ordered By: Anand Yusuf on 78-93-7269Xyzphx [Moles/Vol]140 mmol/M301-362WjqqnmdncMercy Health Clermont Hospitalerum or plasma total bilirubin measurement (mass/volume) Ordered By: Anand Yusuf on 25-36-1977Kwwjciezd [Mass/Vol]0.6 mg/dL0.3-1.2 [facility] Hospitalerum or plasma total carbon dioxide measurement (moles/volume)Ordered By: Anand Yusuf on 40-10-5197XY7 [Moles/Vol] 24.1 mmol/L22.0-30.0[facility] Hospitalerum or plasma urea nitrogen measurement (mass/volume)Ordered By: Anand Yusuf on 70-62-0821Gian nitrogen [Mass/Vol]53 mg/dL9-[facility] Hospitalpecific gravity Auto test strip (U) [Rel density]Ordered By: Anand Yusuf on 20-17-7859Uravmaqr gravity (U) [Rel density]1.0191.001-1.030[facility] Squamous epithelial cells detection in urine sediment by light microscopyOrdered By: Anand Yusuf on 64-37-8964Kmqjxdtutt cells.squamous LM Ql (Urine sed)1-2 [HPF]0-2FJ.W. Ruby Memorial HospitalTroponin I.cardiac [Mass/volume] in Serum or Plasma by High sensitivity methodOrdered By: Anand Yusuf on 07-22-2022 Troponin I.cardiac High sensitivity method [Mass/Vol]4 pg/mL0-15[facility] – JacksonUrine bacteria detection by automated methodOrdered By: Anand Yusuf on 65-36-4386Wcnzcijt Auto Ql (U)4+None SeenHolzer Medical Center – JacksonUrine clarity by refractometry automatedOrdered By: Anand Yusuf on 84-84-3956Xgdqbic Refractometry automated (U)CloudyCleCity HospitalUrine glucose measurement by automated test strip (mass/volume) Ordered By: Anand Ysuuf on 02-32-3241Ashtkli Auto test strip (U) [Mass/Vol] Normal mg/dLMiddletown HospitalUrine hemoglobin detection by automated test stripOrdered By: Anand Yusuf on 77-20-2747Yapiaoysoc Auto test strip Ql (U)NegativeNegativeHolzer Medical Center – JacksonUrine lactic acid measurementOrdered By: Anand Yusuf on 31-04-8852Tsnwfdq (U) [Moles/Vol]1.9 mmol/L0.5-2.2FJ.W. Ruby Memorial HospitalUrine leukocyte esterase detection by automated test stripOrdered By: Anand Yusuf on 49-66-4683Ccajajchx esterase Auto test strip Ql (U)2+NegativeHolzer Medical Center – JacksonUrobilinogen Auto test strip (U) [Mass/Vol]Ordered By: Anand Yusuf on 82-42-2770Qpkpxwstdywi (U) [Mass/Vol]Normal mg/dLNoProMedica Toledo HospitalpH Auto test strip (U)Ordered By: Anand Yusuf on 75-32-8421kG (U)5.0 [pH]5.0-9.0[facility] – JacksonFERRITINon 52-18-4759Bowxbljw [Mass/Vol]39.0 ng/mLNormal 8.0-252.0The [facility] CenterComment on above:Performed By: #### FETIBC, FERR, B12FOL #### [facility] [address] [place] [address] Dr. Anamika Raygoza AND TIBCon 06-24-2022% TOGLUQKLES90.1 %NormalThe [facility] Medical CenterComment on above:Performed By: #### FETIBC FERR, B12FOL #### [facility] [address] [place] [address] Dr. Anamika Raygoza [Mass/Vol]52.0 ug/gYZjfzoj37.0-170.0[facility] Comment on above:Performed By: #### FETIBC FERR, B12FOL #### [facility] [address] [place] [address] Dr. Anamika Singh MHXQEV397.0 ug/pWQrshhz429.0-450.0[facility] Comment on above:Performed By: #### FETIBC FERR, B12FOL #### [facility] [address] [place] [address] Dr. Anamika Nolan PROFILEon 19-57-6140Zxltsgs [Mass/Vol]3.5 g/dLNormal3.4-5.0 The [facility] CenterComment on above:Performed By: #### LIVER #### [facility] [address] [place] [address] Dr. Anamika VargheseAlbumin/Globulin [Mass ratio]1.2 {ratio}NormalThe [facility] Medical CenterComment on above:Performed By: #### LIVER #### [facility] [address] [place] [address] Dr. Anamkia Simon [Catalytic activity/Vol]117 U/LCritically piuw33-514Twh [facility] CenterComment on above:Performed By: #### LIVER #### [facility] [address] [address] [address] Anamika Cook [Catalytic activity/Vol]30 U/OSyjzxz23-34Swx [facility] CenterComment on above:Performed By: #### LIVER #### [facility] [address] [address] [address] Anamika VargheseAST [Catalytic activity/Vol]25 U/OTddbsh94-83Aoz [facility] CenterComment on above:Performed By: #### LIVER #### [facility] [address] [address] [address] Anamika TorresI, CONJUGATED0.2 mg/dLNormal0.0-0.2[facility] Comment on above:Performed By: #### LIVER #### [facility] [address] [address] [address] Anamika Torresirubin [Mass/Vol]0.4 mg/dLNormal0.2-1.0[facility] Comment on above:Performed By: #### LIVER #### [facility] [address] [address] [address] Anamika VargheseGlobulin (S) [Mass/Vol]3.0 g/dLNormalThe [facility]camore Medical CenterComment on above:Performed By: #### LIVER #### [facility] [address] [address] [address] Anamika VargheseProtein [Mass/Vol]6.5 g/dLNormal6.4-8.2[facility] Comment on above:Performed By: #### LIVER #### [facility] [address] [address] [address] Anamika VargheseRETICULOCYTEon 32-84-1553QLPRA0.27 %Critically high0.60-3.10The [facility] CenterComment on above:Performed By: #### FETIBC, FERR, B12FOL #### [facility] [address] [address] [address] Anamika Conley B12 AND FOLATEon 68-85-0880Bfabmgomn (Vitamin B12) [Mass/Vol] 206.0 pg/zNJrtgvm756.0-986.0The [facility] CenterComment on above:Performed By: #### FETIBC, FERR, B12FOL #### [facility] [address] [address] [address] Anamika VargheseFOLATE20.20 ng/mLNormal8.60-58.90The [facility] Medical CenterComment on above:Performed By: #### FETIBC, FERR, B12FOL #### [facility] [address] [place], [place] [address] Dr. Anamika VargheseBasophils Auto (Bld) [#/Vol]Ordered By: Vinay Matta on 42-46-0858Yxhmammrn (Bld) [#/Vol]0.0 10*3/uL0.0-0.2FJ.W. Ruby Memorial HospitalBasophils/100 WBC Auto (Bld)Ordered By: Vinay Bunting on 05-21-2022 Basophils/100 WBC (Bld)0.4 %.[facility] JacksonBlood hemoglobin measurement (mass/volume)Ordered By: Vinay Matta on 72-86-4026Rqcuxohbsw (Bld) [Mass/Vol]9.7 g/dL11.8-15.4FJ.W. Ruby Memorial HospitalBlood leukocytes automated count (number/volume)Ordered By: Vinay Escalerating on 00-33-1334XFH (Bld) [#/Vol]3.7 10*3/uL4.5-11.0[facility] Body fluid albumin measurement (mass/volume)Ordered By: Vinay Matta on 81-60-6634Vgsefwn (Body fld) [Mass/Vol]3.3 g/dL3.2-5.5FJ.W. Ruby Memorial HospitalCholesterol [Mass/volume] in Serum or PlasmaOrdered By: Vinay Bunting on 45-56-0114Cfpcirikjoh [Mass/Vol]122 mg/aC810-072JygnpqycjHolzer Medical Center – JacksonComment on above:Chol less than 200 mg/dl low risk Chol 201-239 mg/dl borderline risk Chol 240 mg/dl and greater high riskCholesterol in LDL Calc [Mass/Vol]Ordered By: Vinay Bunting on 01-36-0557Shvmfmzsilc in LDL [Mass/Vol]67 mg/dL0-100 [facility] – JacksonComment on above:LDL ATP III CLASSIFICATION LDL less than 100 mg/dL Optimal LDL 100-129 mg/dL Near or above optimal LDL 130-159 mg/dL Borderline high LDL 160-189 mg/dL High LDL greater than 189 mg/dL Very highCholesterol in VLDL Calc [Mass/Vol]Ordered By: Vinay Bunting on 06-85-9923Kgujzmuvtdz in VLDL [Mass/Vol]13 mg/dLHolzer Medical Center – JacksonCreatinine and Glomerular filtration rate.predicted panel (S/P/Bld)Ordered By: Vinay Bunting on 95-03-1782Uwnbyjthlc [Mass/Vol]1.15 mg/dL0.44-1.03[facility] – JacksonEosinophils Auto (Bld) [#/Vol] Ordered By: Vinay Bunting on 28-27-1013Vzynwvrjcrj (Bld) [#/Vol]0.1 10*3/uL 0.0-0.45[facility] – JacksonEosinophils/100 WBC Auto (Bld)Ordered By: Vinay Bunting on 98-66-0789Dlojwzwqggf/100 WBC (Bld)3.1 %.[facility] – JacksonErythrocyte distribution width Auto (RBC) [Ratio]Ordered By: Vinay Bunting on 71-05-3252Rqhjbuhghra distribution width (RBC) [Ratio]16.3 %11.9-15.3FJ.W. Ruby Memorial HospitalErythrocyte sedimentation rate by Photometric methodOrdered By: Vinay Bunting on 87-88-2403GBQ Photometric method (Bld) [Velocity]9 mm/hr0-29[facility] – JacksonEstimated glomerular filtration rate (GFR) non- AmericanOrdered By: Vinay Bunting on 55-71-1193ISR/1.73 sq M.predicted among non-blacks MDRD (S/P/Bld) [Vol rate/Area]46 mL/MinHolzer Medical Center – JacksonGlobulin Calc (S) [Mass/Vol] Ordered By: Vinay Bunting on 21-00-1449Xfsooglp (S) [Mass/Vol]2.2 g/dLHolzer Medical Center – JacksonGlucose mean value [Mass/volume] in Blood Estimated from glycated hemoglobinOrdered By: Vinay Bunting on 18-45-6290Exdmyvo glucose Estimated from glycated hemoglobin (Bld) [Mass/Vol]166 mg/dLHolzer Medical Center – JacksonHematocrit Auto (Bld) [Volume fraction]Ordered By: Vinay Bunting on 70-52-8234Ttoomyxarj (Bld) [Volume fraction]29.1 %34.0-46.4FJ.W. Ruby Memorial HospitalHemoglobin A1c percentageOrdered By: Vinay Bunting on 05-21-2022 HbA1c (Bld) [Mass fraction]7.4 %4.3-5.6FJ.W. Ruby Memorial HospitalComment on above:Increased risk for diabetes: 5.7 - 6.4 diabetes: >6.4 glycemic control for adults with diabetes: <7.0Laboratory - Hematology and Cell countsOrdered By: Vinay Bunting on 99-35-8248Aiicqoapn RBC/100 WBC (Bld) [Ratio]0.1 %0-0.5FJ.W. Ruby Memorial HospitalLymphocytes Auto (Bld) [#/Vol] Ordered By: Vinay Bunting on 17-13-1256Tvcxwbqhbft (Bld) [#/Vol]1.0 10*3/uL 1.00-4.8[facility] – JacksonLymphocytes/100 WBC Auto (Bld)Ordered By: Vinay Bunting on 60-77-1174Fdmkeqeujfu/100 WBC (Bld)26.3 %.[facility] HospitalH Auto (RBC) [Entitic mass]Ordered By: Vinay Bunting on 12-33-9272MBT (RBC) [Entitic mass]28.6 pg24.7-34.3FJ.W. Ruby Memorial HospitalMCHC Auto (RBC) [Mass/Vol]Ordered By: Vinay Bunting on 63-92-4087XYMX (RBC) [Mass/Vol]33.5 g/dL32.0-35.0[facility] – JacksonMCV Auto (RBC) [Entitic vol]Ordered By: Vinay Bunting on 50-72-0928ELZ (RBC) [Entitic vol]85.5 yA10-529BebuyearwHolzer Medical Center – JacksonMonocytes Auto (Bld) [#/Vol] Ordered By: Vinay Bunting on 20-10-4533Aeakbbidl (Bld) [#/Vol]0.2 10*3/uL 0.0-0.8[facility] JacksonMonocytes/100 WBC Auto (Bld)Ordered By: Vinay Bunting on 08-08-2420Ahpprspfs/100 WBC (Bld)6.4 %.[facility] – JacksonNeutrophils Auto (Bld) [#/Vol]Ordered By: Vinay Bunting on 52-91-1889Vqjnkueparm (Bld) [#/Vol]2.4 10*3/uL1.8-7.7FJ.W. Ruby Memorial HospitalNeutrophils/100 WBC Auto (Bld)Ordered By: Vinay Bunting on 05-21-2022 Neutrophils/100 WBC (Bld)63.8 %.[facility] – JacksonNo Panel InformationOrdered By: Vinay Bunting on 08-60-3096Vaclspkqn GFR ()56 mL/MinHolzer Medical Center – JacksonComment on above:GFR estimated reference range: According to KDOQI guidelines, <60 ml/min/1.73m2 is sufficient todiagnose a patient with chronic kidney disease.Pharmacy Creatinine Clearance (ChemN/[facility] Medical CenterPlatelet mean volume Auto (Bld) [Entitic vol]Ordered By: Vinay Bunting on 41-66-6296Soclqitz mean volume (Bld) [Entitic vol]7.3 fL6.3-10.7FJ.W. Ruby Memorial HospitalPlatelets Auto (Bld) [#/Vol]Ordered By: Vinay Bunting on 64-33-0533Vzluvothb (Bld) [#/Vol]153 10*3/kJ172-538QltrxmlxuHolzer Medical Center – JacksonProtein [Mass/volume] in Serum or PlasmaOrdered By: Vinay Bunting on 86-27-8913Gflztqd [Mass/Vol]5.5 g/dL6.1-7.9 [facility] – JacksonRBC Auto (Bld) [#/Vol]Ordered By: Vinay Bunting on 02-24-0845CTP (Bld) [#/Vol]3.40 10*6/uL3.60-5.00[facility] Hospitalerum or plasma alanine aminotransferase measurement without P-5'-P (enzymatic activiOrdered By: Vinay Bunting on 58-09-7988BLZ No additional P-5'-P [Catalytic activity/Vol]28 U/K10-11PguyvaxthMercy Health Clermont Hospitalerum or plasma albumin/globulin mass ratioOrdered By: Vinay Bunting on 66-69-9236Lfbxggg/Globulin [Mass ratio]1.5 {ratio}[facility] Hospitalerum or plasma alkaline phosphatase measurement (enzymatic activity/volume)Ordered By: Vinay Bunting on 93-39-7613UJC [Catalytic activity/Vol]96 U/H51-89ZtgvywugfMercy Health Clermont Hospitalerum or plasma aspartate aminotransferase measurement (enzymatic activity/volume)Ordered By: Vinay Bunting on 93-38-7606CPP [Catalytic activity/Vol]30 U/L51-05HgzrbdczxMercy Health Clermont Hospitalerum or plasma calcium measurement (mass/volume)Ordered By: Vinay Bunting on 50-98-1310Kuqnkqe [Mass/Vol]8.5 mg/dL8.2-10.2FProMedica Memorial Hospitalerum or plasma chloride measurement (moles/volume) Ordered By: Vinay Bunting on 03-73-3161Cjtevzes [Moles/Vol]102 mmol/L95-114 [facility] Hospitalerum or plasma glucose measurement (mass/volume)Ordered By: Vinay Bunting on 22-05-7384Jfavdqq [Mass/Vol]167 mg/dL 70-100[facility] – JacksonComment on above:ADA recommended reference range Random Glucose Reference Range is dependent on time and content of last meal. Glucose of more than 200 mg/dL in a nonstressed, ambulatory subject supports the diagnosis of Diabetes Mellitus.Serum or plasma high density lipoprotein (HDL) cholesterol measurementOrdered By: Vinay Matta on 59-21-8022Eseqdmutkjt in HDL [Mass/Vol]41 mg/eT37-51AdcbrrjxlHolzer Medical Center – JacksonComment on above:HDL CHOL ATP-III CLASSIFICATION Cardiovascular Risk HDL > or equal to 60 mg/dL LOW HDL < 40 mg/dL HIGHSerum or plasma potassium measurement (moles/volume)Ordered By: Vinay Bunting on 35-86-1922Zxrkkergo [Moles/Vol]4.5 mmol/L3.5-5.1FProMedica Memorial Hospitalerum or plasma rheumatoid factor measurement (units/volume)Ordered By: Vinay Matta on 71-64-2068Pnpeflcjbg factor Qn [IU]/mL<14.0[facility] – JacksonComment on above:Performed at: - [facility] [id number] Precise Winder: Darren Ashby PhD, Phone: [phone] or plasma sodium measurement (moles/volume)Ordered By: Vinay Matta on 42-91-3375Leehuj [Moles/Vol]140 mmol/W749-596FwybdpwdrMercy Health Clermont Hospitalerum or plasma total bilirubin measurement (mass/volume)Ordered By: Vinay Matta on 04-13-9793Txbbsfers [Mass/Vol]0.5 mg/dL0.3-1.2FJ.W. [facility] Hospital Serum or plasma total carbon dioxide measurement (moles/volume)Ordered By: Vinay Matta on 15-53-7517ZS1 [Moles/Vol]27.2 mmol/L22.0-30.0[facility] Hospitalerum or plasma total cholesterol/high density lipoprotein (HDL) cholesterol mass ratOrdered By: Vinay Matta on 05-21-2022 Cholesterol.total/Cholesterol in HDL [Mass ratio]3.0 {ratio}<5.0[facility] Hospitalerum or plasma urea nitrogen measurement (mass/volume) Ordered By: Vinay Matta on 07-14-3942Jlir nitrogen [Mass/Vol]24 mg/dL9-23 [facility] Hospitalerum or plasma uric acid measurement (mass/volume)Ordered By: Vinay Matta on 92-40-3876Omrvt [Mass/Vol]4.1 mg/dL 2.6-7.2FJ.W. Ruby Memorial HospitalTriglyceride [Mass/volume] in Serum or PlasmaOrdered By: Vinay Bunhomer on 95-10-4756Gnohvibjovya [Mass/Vol]68 mg/dL 35-149[facility] – JacksonComment on above:TRIG ATP III CLASSIFICATION TRIG less than 150 mg/dL Normal TRIG 150-199 mg/dL Borderline high TRIG 200-500 mg/dL High TRIG greater than 500 mg/dL Very high Standard traceable to the Center for Disease Conrtrol and Prevention (CDC) test method.Automated basophil %on 46-97-6825Aqebbnztp/100 WBC (Bld)0.4 %[facility] CtrAutomated basophil counton 33-62-7473Xmegagnot (Bld) [#/Vol] 0.0 10*3/uL0.0-0.2FMetroHealth Main Campus Medical Center CtrAutomated blood lymphocyte count (number/volume)on 40-24-9536Qypwochdmvk (Bld) [#/Vol]1.3 10*3/uL1.00-4.8 [facility] CtrAutomated blood lymphocyte count as percentage of total leukocyteson 28-36-0367Qgcvgwhmyaa/100 WBC (Bld)19.5 %[facility] CtrAutomated blood monocyte counton 51-33-8678Zdqfcdmgp (Bld) [#/Vol]0.3 10*3/uL0.0-0.8[facility] CtrAutomated blood platelet count (count/volume)on 55-41-7077Nnqjhtgsr (Bld) [#/Vol]158 10*3/eO014-565YxhtrbqiuSt. Elizabeth Hospital CtrAutomated blood platelet mean volume measurementon 07-43-0767Qfdqkicb mean volume (Bld) [Entitic vol]7.2 fL6.3-10.7FMetroHealth Main Campus Medical Center CtrAutomated eosinophil %on 82-88-6124Vflyelgqgos/100 WBC (Bld) 3.2 %[facility] CtrAutomated eosinophil counton 01-31-2021 Eosinophils (Bld) [#/Vol]0.2 10*3/uL0.0-0.45[facility] Automated erythrocyte distribution width ratioon 17-17-3643Sgkjovghscz distribution width (RBC) [Ratio]16.8 %11.9-15.3FAshtabula County Medical Center Automated erythrocyte mean corpuscular hemoglobin (mass per erythrocyte)on 86-52-3027EOJ (RBC) [Entitic mass]29.4 pg24.7-34.3FAshtabula County Medical Center Automated erythrocyte mean corpuscular hemoglobin concentration measurement (mass/volon 37-59-3947LJYI (RBC) [Mass/Vol]33.9 g/dL32.0-35.0[facility] CtrAutomated erythrocyte mean corpuscular volumeon 08-41-7593KQO (RBC) [Entitic vol]86.6 dG54-099GrlwkfiqzSt. Elizabeth Hospital CtrAutomated erythrocytes count in urine sediment (number/area)on 64-81-2949KCN Auto (Urine sed) [#/Area] 0-1 [HPF][facility] CtrAutomated leukocytes count in urine sediment (number/area)on 86-53-8173HZS Auto (Urine sed) [#/Area]3-4 [HPF] [facility] CtrAutomated monocyte %on 45-77-9125Ivdrsrpfi/100 WBC (Bld)5.0 %[facility] CtrAutomated neutrophil %on 01-31-2021 Neutrophils/100 WBC (Bld)71.9 %[facility] CtrAutomated urine color determinationon 04-76-2883Yfjqu (U)YellowYellowSt. Elizabeth Hospital CtrBlood erythrocytes automated count (number/volume)on 47-99-1140IVI (Bld) [#/Vol]4.01 10*6/uL3.60-5.00[facility] CtrBlood hemoglobin measurement (mass/volume)on 07-31-2138Klbnrosuqu (Bld) [Mass/Vol]11.8 g/dL 11.8-15.4FMetroHealth Main Campus Medical Center CtrBlood leukocytes automated count (number/volume)on 17-64-0642GOH (Bld) [#/Vol]6.7 10*3/uL4.5-11.0[facility] CtrBlood neutrophil count by automated method (number/volume)on 71-44-1546Xhphlgchwxl (Bld) [#/Vol]4.8 10*3/uL1.8-7.7FMetroHealth Main Campus Medical Center CtrBody fluid albumin measurement (mass/volume)on 59-55-9179Vjfjlxq (Body fld) [Mass/Vol]3.7 g/dL3.2-5.5FMetroHealth Main Campus Medical Center CtrCholesterol [Mass/volume] in Serum or Plasmaon 36-94-2022Jvdqllgxcuh [Mass/Vol]129 mg/uH448-412LqafkjwkxSt. Elizabeth Hospital CtrComment on above:Chol less than 200 mg/dl low riskChol 201- 239 mg/dl borderline riskChol 240 mg/dl and greater high riskCholesterol in LDL [Mass/volume] in Serum or Plasma by calculationon 27-60-9417Smvriowqcah in LDL [Mass/Vol]63 mg/dL0-100[facility] CtrComment on above:LDL ATP III CLASSIFICATIONLDL less than 100 mg/dL OptimalLDL 100-129 mg/dL Near or above rocxxasKGA693-738 mg/dL Borderline highLDL 160-189 mg/dL HighLDL greater than 189 mg/dL Very highCholesterol in VLDL [Mass/volume] in Serum or Plasma by calculationon 59-25-1154Fpjpnzvmvqq in VLDL [Mass/Vol]22 mg/dLSt. [facility] Hospital CtrCreatinine [Mass/volume] in Urineon 20-21-8397Jpehrzjzws (U) [Mass/Vol]127.7 mg/dLSt. Elizabeth Hospital CtrComment on above:No reference range establishedEstimated glomerular filtration rate (GFR) non- Americanon 19-11-7605SIM/1.73 sq M predicted among non-blacks MDRD (S/P/Bld) [Vol rate/Area]45 mL/min/{1.73_m2}[facility] CtrGlucose mean value [Mass/volume] in Blood Estimated from glycated hemoglobinon 01-31-2021 Average glucose Estimated from glycated hemoglobin mass conc (Bld)174 mg/dL [facility] CtrHematocrit [Volume Fraction] of Blood by Automated counton 92-74-2294Sagiaaxcfx (Bld) [Volume fraction]34.7 %34.0-46.4FMetroHealth Main Campus Medical Center CtrHemoglobin A1c percentageon 91-39-2494PkR8j (Bld) [Mass fraction]7.7 %4.3-5.6FMetroHealth Main Campus Medical Center CtrComment on above:Increased risk for diabetes: 5.7 - 6.4diabetes: >6.4glycemic control for adults with diabetes: <7.0Otheron 96-52-5198LWF/1.73 sq M.predicted MDRD (S/P/Bld) [Vol rate/Area]55 mL/min/{1.73_m2}[facility] CtrComment on above:GFR estimated reference range: According to KDOQI guidelines, <60 ml/min/1.73m2 is sufficient todiagnose a patient with chronic kidney disease.Nucleated RBC/100 WBC (Bld) [Ratio]0.2 %0-0.5FMetroHealth Main Campus Medical Center CtrPharmacy Creatinine Clearance (ChemN/AFMetroHealth Main Campus Medical Center CtrProtein [Mass/volume] in Serum or Plasmaon 06-54-6583Llqisqf [Mass/Vol]6.2 g/dL6.1-7.9[facility] CtrSerum globulin measurement by calculation (mass/volume)on 01-31-2021 Globulin (S) [Mass/Vol]2.5 g/dLAvita Health System Bucyrus HospitalSerum or plasma alanine aminotransferase measurement without P-5'-P (enzymatic activion 32-88-0083SXZ No additional P-5'-P [Catalytic activity/Vol]47 U/L24-87EuciasllmSt. Elizabeth Hospital CtrSerum or plasma albumin/globulin mass ratioon 01-31-2021 Albumin/Globulin [Mass ratio]1.5 {ratio}[facility] CtrSerum or plasma alkaline phosphatase measurement (enzymatic activity/volume)on 01-31-2021 ALP [Catalytic activity/Vol]90 U/V31-86PjkktwjxgSt. Elizabeth Hospital CtrSerum or plasma aspartate aminotransferase measurement (enzymatic activity/volume)on 07-66-4094EXK [Catalytic activity/Vol]69 U/S31-29ZoilmbqiuAvita Health System Bucyrus Hospital Serum or plasma calcium measurement (mass/volume)on 26-06-1033Edghien [Mass/Vol] 8.4 mg/dL8.2-10.2FMetroHealth Main Campus Medical Center CtrSerum or plasma chloride measurement (moles/volume)on 02-89-7697Ntthlqty [Moles/Vol]100 mmol/L95-114 [facility] CtrSerum or plasma creatinine measurement with calculation of estimated glomerular filtron 36-92-0646Zqxfibumoq [Mass/Vol]1.17 mg/dL0.44-1.03[facility] CtrSerum or plasma glucose measurement (mass/volume)on 58-94-0581Zulwyqj [Mass/Vol]157 mg/kL95-917SscvvrfhmSt. Elizabeth Hospital CtrComment on above:ADA recommended reference rangeRandom Glucose Reference Range is dependent on time and content of last meal. Glucose of more than 200 mg/dL in a nonstressed, ambulatory subject supports the diagnosisof Diabetes Mellitus.Serum or plasma high density lipoprotein (HDL) cholesterol measurementon 27-04-1127Ocsrpbbphub in HDL [Mass/Vol]43 mg/nM41-61IqclvlmbqSt. Elizabeth Hospital CtrComment on above:HDL CHOL ATP-III CLASSIFICATION Cardiovascular RiskHDL > or equal to 60 mg/dL LOWHDL < 40 mg/dL HIGHSerum or plasma potassium measurement (moles/volume)on 65-14-2806Xzwowlalc [Moles/Vol]3.5 mmol/L3.5-5.1FMetroHealth Main Campus Medical Center CtrSerum or plasma sodium measurement (moles/volume)on 82-04-7023Ovftwt [Moles/Vol]140 mmol/F203-819BklmicbrxSt. [facility] Hospital CtrSerum or plasma total bilirubin measurement (mass/volume)on 76-79-6233Ansxqrevi [Mass/Vol]0.9 mg/dL0.3-1.2FAshtabula County Medical Center Serum or plasma total carbon dioxide measurement (moles/volume)on 79-52-7921SF1 [Moles/Vol]26.2 mmol/L22.0-30.0[facility] CtrSerum or plasma total cholesterol/high density lipoprotein (HDL) cholesterol mass dulce maria 42-83-6275Rnoduklirfl.total/Cholesterol in HDL [Mass ratio]3.0 {ratio}[facility] CtrSerum or plasma urea nitrogen measurement (mass/volume)on 52-98-5755Waxn nitrogen [Mass/Vol]23 mg/dL9-23[facility] Specific gravity of Urine by Automated test stripon 85-91-6390Dgxlgkhy gravity (U) [Rel density]1.0201.001-1.030[facility] CtrSquamous epithelial cells detection in urine sediment by light microscopyon 01-31-2021 Epithelial cells.squamous LM Ql (Urine sed)10-19 [HPF][facility] CtrTriglyceride [Mass/volume] in Serum or Plasmaon 66-48-5064Izouqoaaugvk [Mass/Vol]114 mg/jZ24-130VxwafyavtSt. Elizabeth Hospital CtrComment on above:TRIG ATP III CLASSIFICATIONTRIG less than 150 mg/dL NormalTRIG 150-199 mg/dL Borderline highTRIG 200-500 mg/dL High TRIG greater than 500 mg/dL Very highStandard traceable to the Center for Disease Conrtrol and Prevention (CDC) test method. Urinalysison 02-49-4252Bmnaeux casts LM Ql (Urine sed)0-8 [LPF][facility] CtrUrine bacteria detection by automated methodon 01-31-2021 Bacteria Auto Ql (U)None seenNone SeenSt. Elizabeth Hospital CtrUrine clarity by refractometry automatedon 52-21-4694Slqrtke Refractometry automated (U)ClearCleThe Christ HospitalUrine glucose measurement by automated test strip (mass/volume)on 84-45-9776Efwzvgq Auto test strip (U) [Mass/Vol]Normal mg/dLNormalAvita Health System Bucyrus HospitalUrine hemoglobin detection by automated test stripon 45-64-0205Jhcchsfkpk Auto test strip Ql (U) NegativeNegativeAvita Health System Bucyrus HospitalUrine ketones measurement by automated test strip (mass/volume)on 39-78-4673Qdtxzic (U) [Mass/Vol]Negative NegativeAvita Health System Bucyrus HospitalUrine leukocyte esterase detection by automated test stripon 22-84-7593Epnhftbwl esterase Auto test strip Ql (U)1+ NegativeAvita Health System Bucyrus HospitalUrine microalbumin measurement with detection limit of 20 mg/L or less (mass/volume)on 18-64-7245Rvbzvwe DL <= 20 mg/L (U) [Mass/Vol]0.9 mg/dL0.0-1.8[facility] HospitalUrine microalbumin/creatinine mass ratioon 35-70-0685Azxflja/Creatinine DL <= 20 mg/L (U) [Mass ratio]7.0 mg/g0.0-30.0[facility] CtrComment on above: 30-300 mg/g indicates an increased risk for diabetic nephropathy. Greater than 300 mg/g is consistent with clinical nephropathy. (Am. J. Kidney Disease 1995, 25:107)Urine nitrite detection by test stripon 57-01-8646Uuzksab Ql (U)Negative NegativeSt. Elizabeth Hospital CtrUrine pH measurement by automated test stripon 21-39-5686bX (U)5.0 [pH]5.0-9.0[facility] CtrUrine protein measurement by automated test strip (mass/volume)on 08-27-5509Bkhvmlr (U) [Mass/Vol]Trace mg/dLNegativeAvita Health System Bucyrus HospitalUrine total bilirubin detection by test stripon 38-99-3762Qsgqznszp Ql (U)NegativeNegative [facility] CtrUrine urobilinogen measurement by automated test strip (mass/volume)on 87-36-9669Qpvsxddpkybv (U) [Mass/Vol]Normal mg/dLNormal [facility] Vital Signs Date TimeVital SignValuePerforming OlwqelkxyKpxkpghf44-44-3955 09:14-0400Body qqnqru904.75 kgDarrin Bunting DO Work Phone: [phone] [place], [place] [address]109-08-2025 09:14-0400 Diastolic blood xpwxbcyr52 mm[Hg]Vinay Bunting DO Work Phone: [phone] [place], [place] [address]109-08-2025 09:14-0400 Heart rate76 /minDarrin Bunting DO Work Phone: [phone]09-08-2025 09:14-0400 SaO2% (BldA) [Mass fraction]96 %Vinay Bunting DO Work Phone: [phone] [place], [place] 6145209-08-2025 09:14-0400 Systolic blood mm[Hg]Vinay Bunting DO Work Phone: [phone] [place], [place] 6145208-20-2025 09:46-0400 Body qytzlz089.48 cmDarrin Bunting DO Work Phone: [phone]08-20-2025 09:46-0400 Body mass index (BMI) [Ratio]40.2 kg/i5Zfacxz Bunting DO Work Phone: [phone]08-20-2025 09:46-0400 Body dbirkyytivr00.3 [degF]Vinay Bunting DO Work Phone: [facility]08-20-2025 09:46-0400 Body qxfaqu29.9 kgDarrin Bunting DO Work Phone: [phone]08-20-2025 09:46-0400 Diastolic blood bypaytkf62 mm[Hg]Vinay Bunting DO Work Phone: [phone]08-20-2025 09:46-0400 Heart rate81 /minDarrin Bunting DO Work Phone: [phone] [place], [place] [address]2208-20-2025 09:46-0400 Respiratory rate18 /minDarrin Bunting DO Work Phone: [phone]08-20-2025 09:46-0400 SaO2% (BldA) [Mass fraction]96 %Vinay Bunting DO Work Phone: [phone] [place], [place] 6145208-20-2025 09:46-0400 Systolic blood ncvcpyvu360 mm[Hg]Vinay Bunting DO Work Phone: [phone]06-10-2025 10:47-0400 Body ltulpg791 cmMindy Cyrus PA-C Work Phone: [facility]06-10-2025 10:47-0400Body mass index (BMI) [Ratio]40.42 kg/l4Gppiw Cyrus PA-C Work Phone: [facility]06-10-2025 10:47-0400Body temperature 97.9 [degF]Daksha Cyrus PA-C Work Phone: [facility]06-10-2025 10:47-0400Body aalpvo824.9 kgMindy Cyrus PA-C Work Phone: [facility]06-10-2025 10:47-0400Diastolic blood mm[Hg]Daksha Cyrus PA-C Work Phone: [facility]06-10-2025 10:47-0400Heart rate84 /min Daksha Kanger PA-C Work Phone: [facility]06-10-2025 10:47-0400Respiratory rate 18 /minDaksha Kanger PA-C Work Phone: [facility]06-10-2025 10:47-1274MzF1% (BldA) [Mass fraction]94 %Daksha Kanger PA-C Work Phone: [facility]06-10-2025 10:47-0400Systolic blood [id number] mm[Hg]Daksha Kanger PA-C Work Phone: [facility]05-15-2025 09:45-0400Blood Pressure LocationVerónica Ugarte [phone]05-15-2025 09:45-0400Diastolic blood fitqjnjj27 mm[Hg]Verónica Ugarte [phone]-ByvwjGerman Hospital05-15-2025 09:45-0400Heart rate67 /minVerónica Ugarte [phone]-NpijiGerman Hospital05-15-2025 09:45-0400Systolic blood moqqaamw673 mm[Hg]Verónica Ugarte [phone]-EqzwzGerman Hospital04-21-2025 09:47-0400Body nexmic950.9 cmAngela Lowe PA Work Phone: noPark[facility] CenterZxydzgrpva06-06-8153 09:47-0400Body mass index (BMI) [Ratio]41 kg/g4Bthxnd Lowe PA Work Phone: noPark[facility] CenterPnxjbjvvdw08-54-2013 09:47-0400Body .43 kgAngela Lowe PA Work Phone: noPark[facility] CenterBmsdbqcejg04-24-3026 09:47-0400Diastolic blood iquecuor52 mm[Hg]Tammy Lowe PA Work Phone: noPark[facility] CenterRylhrpddxs28-37-2628 09:47-0400Systolic blood onyaaxav892 mm[Hg]Tammy Lowe PA Work Phone: noPark[facility] CenterUodpdepdwb65-48-3763 14:14-0500Body mass index (BMI) [Ratio]38.7 kg/o6Mgfnu Cyrus PA-C Work Phone: [facility]02-21-2025 14:14-0500Body temperature 97.81 [degF]Daksha Cyrus PA-C Work Phone: [facility]02-21-2025 14:14-0500Body cihygb32.6 kgMindy Cyrus PA-C Work Phone: [facility]02-21-2025 14:14-0500Diastolic blood ufmrvrsh33 mm[Hg]Daksha Cyrus PA-C Work Phone: [facility]02-21-2025 14:14-0500Heart rate80 /min Daksha Cyrus PA-C Work Phone: [facility]02-21-2025 14:14-0500Respiratory rate 18 /minMindy Cyrus PA-C Work Phone: [facility]02-21-2025 14:14-2184MuF6% (BldA) [Mass fraction]97 %Daksha Cyrus PA-C Work Phone: [facility]02-21-2025 14:14-0500Systolic blood alksquyd666 mm[Hg]Daksha Cyrus PA-C Work Phone: [facility]02-18-2025 09:44-0500Body unvvkd559.9 cmAcorie Lowe PA Work Phone: noPark[facility] CenterCbjysxmorv47-21-6651 09:44-0500Body mass index (BMI) [Ratio]40.06 kg/l3Mcevgq Lowe PA Work Phone: noPark[facility] CenterBoavdqvezp39-59-6174 09:44-0500Body uqqxbi71.16 kgTammy Neffe PA Work Phone: [facility]Zsqzkfijoa33-07-8834 09:44-0500Diastolic blood mm[Hg]Tammy Neffe PA Work Phone: [facility]linOekrbdpgqv94-81-6716 09:44-0500Systolic blood gsqwvinp284 mm[Hg]Tammy Neffe PA Work Phone: [facility]linQijsjsuysx09-57-3979 14:16-0500Body iyirjf236.48 cmDarrin Bunting DO Work Phone: 1(726)[address]02-11-2025 14:16-0500 Body mass index (BMI) [Ratio]38.9 kg/q2Kzqrrj Bunting DO Work Phone: 1(368)[address] [place], [place] 3332102-11-2025 14:16-0500 Body mykekvvwnuy49.5 [degF]Vinay Bunting DO Work Phone: 1(882)[address] [place], [place] 3332102-11-2025 14:16-0500 Body rdopnd23.67 kgDarrin Bunting DO Work Phone: 1(038)[address] [place], [place] 3332102-11-2025 14:16-0500 Diastolic blood wtixmaqy18 mm[Hg]Vinay Bunting DO Work Phone: 1(750)[address] [place], [place] 3332102-11-2025 14:16-0500 Heart rate80 /minDarrin Bunting DO Work Phone: 1(021)0-[address] [place], [place] 6145202-11-2025 14:16-0500 Respiratory rate18 /minDarrin Bunting DO Work Phone: 1(909)0-[address] [place], [place] 6145202-11-2025 14:16-0500 SaO2% (BldA) [Mass fraction]98 %Vinay Bunting DO Work Phone: 1(940)[address]02-11-2025 14:16-0500 Systolic blood igkntpzz880 mm[Hg]Vinay Bunting DO Work Phone: 1(449)[address] [place], [place] 3332112-30-2024 13:10-0500 Body evlcjl342.48 cmDarrin Bunting DO Work Phone: 1(466)218-[address] [place], [place] 6145212-30-2024 13:10-0500 Body mass index (BMI) [Ratio]38.4 kg/h1Xbhxis Bunting DO Work Phone: 8(054)973-[address] [place], [place] 6145212-30-2024 13:10-0500 Body diomon32.25 kgDarrin Bunting DO Work Phone: 1(336)987-[address] [place], [place] 6145212-30-2024 13:10-0500 Diastolic blood vrecuejk54 mm[Hg]Vinay Bunting DO Work Phone: 0(977)[address]2024 13:10-0500 Heart rate85 /minDarrin Bunting DO Work Phone: 1(018)[address] [place], [place] 6802212-30-2024 13:10-0500 SaO2% (BldA) [Mass fraction]95 %Vinay Bunting DO Work Phone: 8(521)742-[address] [place], [place] 6145212-30-2024 13:10-0500 Systolic blood vjdbfawm448 mm[Hg]Vinay Bunting DO Work Phone: 6(695)795-[address] [place], [place] 6145211-22-2024 14:42-0500 Body miwpfu704 cmMindy Cyrus PA-C Work Phone: [facility]11-22-2024 14:42-0500Body mass index (BMI) [Ratio]38.74 kg/o6Gpkny Cyrus PA-C Work Phone: [facility]11-22-2024 14:42-0500Body temperature 97.11 [degF]Daksha Cyrus PA-C Work Phone: [facility]11-22-2024 14:42-0500Body hweqmf51.7 kgMindy Cyrus PA-C Work Phone: [facility]11-22-2024 14:42-0500Diastolic blood lajwjpwz78 mm[Hg]Daksha Cyrus PA-C Work Phone: [facility]11-22-2024 14:42-0500Heart rate81 /min Daksha Kagner PA-C Work Phone: [facility]11-22-2024 14:42-0500Respiratory rate 18 /minDaksha Kanger PA-C Work Phone: [facility]11-22-2024 14:42-9688VtJ7% (BldA) [Mass fraction]95 %Daksha Kanger PA-C Work Phone: [facility]11-22-2024 14:42-0500Systolic blood uvsleztl890 mm[Hg]Daksha Kanger PA-C Work Phone: [facility]11-14-2024 09:18-0500Blood Pressure LocationVerónica Ugarte [phone]-LbaoxGerman Hospital11-14-2024 09:18-0500Diastolic blood wdjbjdij37 mm[Hg]Verónica Ugarte 103-2235Nzaahq-ChikcGerman Hospital11-14-2024 09:18-0500Heart rate74 /minVerónica Ugarte 124-5838Shkmrs-WcllfGerman Hospital11-14-2024 09:18-0500Systolic blood oorcspnm338 mm[Hg]Verónica Ugarte [phone]-MzmgvGerman Hospital10-01-2024 08:51-0400Body .9 cmQueta Prieto REAL ESTATE ECONOMIST Work Phone: noPark[facility] CenterYkpllbpnzj59-02-2464 08:51-0400Body mass index (BMI) [Ratio]39.49 kg/u0WmokgrzQueta Prieto REAL ESTATE ECONOMIST Work Phone: noPark[facility] CenterIhaamqbjqn56-40-0764 08:51-0400Body jqojlk40.8 kg Queta Prieto REAL ESTATE ECONOMIST Work Phone: 1(419)483-[address] [place], [place] [address]Brygmhpzwt94-27-8286 08:51-0400Diastolic blood tcbhjvix20 mm[Hg]Queta Prieto REAL ESTATE ECONOMIST Work Phone: [facility]linAedzktqbfm18-62-9033 08:51-0400Heart rate77 /min Queta Prieto REAL ESTATE ECONOMIST Work Phone: [facility]linGfmxlzedoi11-03-2103 08:51-0400Systolic blood skrdhnyi938 mm[Hg]Queta Prieto REAL ESTATE ECONOMIST Work Phone: [facility]linTnwvbvpips37-00-2862 12:08-0400Body temperature 97.5 [degF]DO Vinay Bunting Work Phone: 1(072)[address] [place], [place] 3332109-06-2024 12:08-0400 Diastolic blood jxitxaic41 mm[Hg]DO Vinay Bunting Work Phone: 1(162)[address] [place], [place] 3332109-06-2024 12:08-0400 Heart rate64 /minDO Vinay Bunting Work Phone: 1(417)[address] [place], [place] 3332109-06-2024 12:08-0400 Respiratory rate18 /minDO Vinay Bunting Work Phone: 1(214)[address] [place], [place] 3332109-06-2024 12:08-0400 SaO2% (BldA) [Mass fraction]98 %DO Vinay Bunting Work Phone: 1(772)[address] [place], [place] 3332109-06-2024 12:08-0400 Systolic blood viwzndta254 mm[Hg]DO Vinay Bunting Work Phone: 1(503)[address] [place], [place] 3332109-06-2024 05:18-0400 Body qmtpon16.2 kgDO Vinay Bunting Work Phone: 1(700)[address]09-05-2024 15:32-0400 Body zoehcg468.56 cmDO Vinay Bunting Work Phone: 1(586)[address]09-05-2024 14:00-0400 Diastolic blood jjklwupm29 mm[Hg]DO Vinay Bunting Work Phone: 1(139)448-[address] [place], [place] 6145209-05-2024 14:00-0400 Heart rate76 /minDO Vinay Bunting Work Phone: 1(498)[address]09-05-2024 14:00-0400 Respiratory rate18 /minDO Vinay Bunting Work Phone: 1(835)[address] [place], [place] 3332109-05-2024 14:00-0400 SaO2% (BldA) [Mass fraction]98 %DO Vinay Bunting Work Phone: 1(510)[address] [place], [place] 3332109-05-2024 14:00-0400 Systolic blood mm[Hg]DO Vinay Bunting Work Phone: 1(763)[address] [place], [place] 3332109-05-2024 12:53-0400 Body xhajskoegfk70.7 [degF]DO Vinay Bunting Work Phone: 1(393)[address] [place], [place] 3332109-05-2024 09:57-0400 Body jsopha773.56 cmDO Vinay Bunting Work Phone: 1(578)[address] [place], [place] 3332109-05-2024 09:57-0400 Body qtbvod53.34 kgDO Vinay Bunting Work Phone: 1(517)[address]08-30-2024 14:21-0400 Body mass index (BMI) [Ratio]37.85 kg/r6Dsbir Cyrus PA-C Work Phone: [facility]08-30-2024 14:21-0400Body temperature 97.39 [degF]Daksha Cyrus PA-C Work Phone: [facility]08-30-2024 14:21-0400Body anaiao14.5 kgMindy Cyrus PA-C Work Phone: [facility]08-30-2024 14:21-0400Diastolic blood ertiiwdp47 mm[Hg]Daksha Cyrus PA-C Work Phone: [facility]08-30-2024 14:21-0400Heart rate81 /min Daksha Cyrus PA-C Work Phone: [facility]08-30-2024 14:21-0400Respiratory rate 18 /minDaksha Kanger PA-C Work Phone: [facility]08-30-2024 14:21-3763TbP1% (BldA) [Mass fraction]96 %Daksha Kanger PA-C Work Phone: [facility]08-30-2024 14:21-0400Systolic blood imnymxlw862 mm[Hg]Daksha Kanger PA-C Work Phone: [facility]08-19-2024 15:30-0400Body etrqdf658.56 cmDO Vinay Bunting Work Phone: 2(991)213[facility]95[facility]08-19-2024 15:30-0400 Body mass index (BMI) [Ratio]36.2 kg/m2DO Vinay Bunting Work Phone: [facility]08-19-2024 15:30-0400 Body blbqpoxfcje15 [degF]DO Vinay Bunting Work Phone: 9(637)451[facility]04[facility]08-19-2024 15:30-0400 Body bxwllo66.76 kgDO Vinay Bunting Work Phone: 9(132)463[facility]82[facility]08-19-2024 15:30-0400 Diastolic blood xtwfnzya39 mm[Hg]DO Vinay Bunting Work Phone: [facility]08-19-2024 15:30-0400 Heart rate83 /minDO Vinay Bunting Work Phone: 9(676)348-34[facility]08-19-2024 15:30-0400 Respiratory rate18 /minDO Vinay Bunting Work Phone: 6(194)661-41[facility]08-19-2024 15:30-0400 SaO2% (BldA) [Mass fraction]97 %DO Vinay Bunting Work Phone: 9(519)617-76[facility]08-19-2024 15:30-0400 Systolic blood tcdleyze316 mm[Hg]DO Vinay Bunting Work Phone: 1(775)[address] [place], [place] 3332106-26-2024 11:41-0400 Body yobnhq857.56 cmDO Vinay Bunting Work Phone: 1(837)[address] [place], [place] 3332106-26-2024 11:41-0400 Body mass index (BMI) [Ratio]35.7 kg/m2DO Vinay Bunting Work Phone: 1(324)[address] [place], [place] 3332106-26-2024 11:41-0400 Body efvcjiebwdq34.4 [degF]DO Vinay Bunting Work Phone: 1(399)[address] [place], [place] 3332106-26-2024 11:41-0400 Body rdniuk23.4 kgDO Vinay Bunting Work Phone: 1(494)[address] [place], [place] 3332106-26-2024 11:41-0400 Diastolic blood xtaamvfm53 mm[Hg]DO Vinay Bunting Work Phone: 1(387)[address] [place], [place] 3332106-26-2024 11:41-0400 Heart rate88 /minDO Vinay Bunting Work Phone: 0(854)[address] [place], [place] 3332106-26-2024 11:41-0400 Respiratory rate16 /minDO Vinay Bunting Work Phone: 7(933)[address] [place], [place] 3332106-26-2024 11:41-0400 SaO2% (BldA) [Mass fraction]96 %DO Vinay Bunting Work Phone: 1(177)[address] [place], [place] 3332106-26-2024 11:41-0400 Systolic blood aqgtdyjm353 mm[Hg]DO Vinay Bunting Work Phone: 7(525)[address] [place], [place] 3332105-31-2024 14:07-0400 Body nplljo524 Rodney Flores APRN.[employer] Work Phone: [facility]05-31-2024 14:07-0400Body mass index (BMI) [Ratio]39.1 kg/t0Uabla Gross ANESTHESIOLOGY TECHNOLOGIST.[employer] Work Phone: [facility]05-31-2024 14:07-0400Body temperature 97 [degF]Shana Mark ANESTHESIOLOGY TECHNOLOGIST.[employer] Work Phone: [facility]05-31-2024 14:07-0400Body ussbxx52.6 kgShana Flores ANESTHESIOLOGY TECHNOLOGIST.[employer] Work Phone: [facility]05-31-2024 14:07-0400Diastolic blood mm[Hg]Shana Mark ANESTHESIOLOGY TECHNOLOGIST.[employer] AGENT Work Phone: [facility]05-31-2024 14:07-0400Heart rate89 /min Shana Mark ANESTHESIOLOGY TECHNOLOGIST.[employer] AGENT Work Phone: [facility]05-31-2024 14:07-0400Respiratory rate 16 /minErrichard Mark ANESTHESIOLOGY TECHNOLOGIST.[employer] AGENT Work Phone: [facility]05-31-2024 14:07-0971ZlF9% (BldA) [Mass fraction]95 %Shana Mark ANESTHESIOLOGY TECHNOLOGIST.[employer] AGENT Work Phone: [facility]05-31-2024 14:07-0400Systolic blood qhaffacv953 mm[Hg]Shana Flores ANESTHESIOLOGY TECHNOLOGIST.[employer] AGENT Work Phone: [facility]05-13-2024 11:48-0400Blood Pressure Areyl Ugarte [phone]-JujreGerman Hospital05-13-2024 11:48-0400Diastolic blood lbcryfyv03 mm[Hg]Verónica Ugarte 154-2086Vbcydi-OhyddGerman Hospital05-13-2024 11:48-0400Heart rate80 /minVerónica Ugarte [phone]-QkgzuGerman Hospital05-13-2024 11:48-0400Respiratory rate16 /minVerónica Ugarte [phone]-HdhgxGerman Hospital05-13-2024 11:48-0400Systolic blood wmebeobp577 mm[Hg]Verónica Ugarte [phone]-HqhxnGerman Hospital04-11-2024 10:03-0400Body pqjzqntpqun28.7 [degF]Chair Abhishek Work Phone: [facility]04-11-2024 10:03-0400Diastolic blood ovocdtvp72 mm[Hg]Chair Abhishek Work Phone: [facility]04-11-2024 10:03-0400Heart rate82 /min Chair Abhishek Work Phone: [place] [address]-11-2024 10:03-0400Respiratory rate 16 /minChair Abhishek Work Phone: [facility]04-11-2024 10:03-4846JsK6% (BldA) [Mass fraction]97 %Chair Abhishek Work Phone: [facility]04-11-2024 10:03-0400Systolic blood qnmrguzx626 mm[Hg]Chair Abhishek Work Phone: [facility]03-15-2024 10:17-0400Body cm Daksha Cyrus PA-C Work Phone: [facility]03-15-2024 10:17-0400Body temperature 98.2 [degF]Daksha Cyrus PA-C Work Phone: [place] [address]-15-2024 10:17-0400Body uqvygn11 kg Daksha Cyrus PA-C Work Phone: [place] [address]-15-2024 10:17-0400Diastolic blood iunsbkyw97 mm[Hg]Daksha Cyrus PA-C Work Phone: [place] [address]-15-2024 10:17-0400Heart rate93 /min Daksha Cyrus PA-C Work Phone: [place] [address]-15-2024 10:17-0400Respiratory rate 16 /minMindy Cyrus PA-C Work Phone: [facility]03-15-2024 10:17-9484EjA8% (BldA) [Mass fraction]95 %Daksha Bridges PA-C Work Phone: [facility]03-15-2024 10:17-0400Systolic blood mm[Hg]Daksha Bridges PA-C Work Phone: [facility]01-22-2024 09:08-0500Blood Pressure LocationBeth Ruth [phone]-EkmoyGerman Hospital01-22-2024 09:08-0500Body mgaaudbvccj02.8 [degF]Nisa Shepherd [phone]-KesloGerman Hospital01-22-2024 09:08-0500Diastolic blood tvokievf98 mm[Hg]Nisa Shepherd [phone]-MjyzsGerman Hospital01-22-2024 09:08-0500Heart rate92 /minBeth Ruth [phone]-EcbqzGerman Hospital01-22-2024 09:08-0500Systolic blood mm[Hg]Nias Shepherd [phone]-KecxgGerman Hospital12-05-2023 10:30-0500Body amajbv396.56 cmPvega Delcid Other [employer] Other 12-05-2023 10:30-0500Body mass index (BMI) [Ratio] 36.04 kg/d0WclpuAnh Delcid Other [employer] Other 12-05-2023 10:30-0500Body ndjtny21.26 kgPepepito Delcid Other [employer] Other 12-05-2023 10:30-0500Diastolic blood seufehtk46 mm[Hg] Anh Delcid Other [employer] Other 12-05-2023 10:30-3697ZnE4% (BldA) [Mass fraction]95 % Anh Delcid Other [employer] Other 12-05-2023 10:30-0500Systolic blood odujvyyk949 mm[Hg] Anh Delcid Other [employer] [facility] [employer] Other 09-08-2023 13:56-0400Body gnumvs455 cmMindy Cyrus PA-C Work Phone: [facility]09-08-2023 13:56-0400Body temperature 97.7 [degF]Daksha Cyrus PA-C Work Phone: [facility]09-08-2023 13:56-0400Body bzelho41.63 kgMindy Cyrus PA-C Work Phone: [facility]09-08-2023 13:56-0400Diastolic blood sjmrwytk67 mm[Hg]Daksha Cyrus PA-C Work Phone: [facility]09-08-2023 13:56-0400Heart rate79 /min Daksha Cyrus PA-C Work Phone: [facility]09-08-2023 13:56-0400Respiratory rate 16 /minMindy Cyrus PA-C Work Phone: [facility]09-08-2023 13:56-2640WhB5% (BldA) [Mass fraction]95 %Daksha Cyrus PA-C Work Phone: [facility]09-08-2023 13:56-0400Systolic blood ikqdzxih978 mm[Hg]Dakhsa Cyrus PA-C Work Phone: [facility]06-16-2023 13:42-0400Body cm Daksha Cyrus PA-C Work Phone: [facility]06-16-2023 13:42-0400Body temperature 97.59 [degF]Daksha Kanger PA-C Work Phone: [facility]06-16-2023 13:42-0400Body gkjxap92.62 kgMinvera Cyrus PA-C Work Phone: [facility]06-16-2023 13:42-0400Diastolic blood mm[Hg]Daksha Cyrus PA-C Work Phone: [facility]06-16-2023 13:42-0400Heart rate82 /min Daksha Cyrus PA-C Work Phone: [facility]06-16-2023 13:42-0400Respiratory rate 18 /minMinvera Cyrus PA-C Work Phone: [facility]06-16-2023 13:42-9432MaE2% (BldA) [Mass fraction]95 %Daksha Kanger PA-C Work Phone: [facility]06-16-2023 13:42-0400Systolic blood afmvnmbz857 mm[Hg]Daksha Kanger PA-C Work Phone: [facility]05-31-2023 09:26-0400Blood Pressure LocationMaher SALAM [phone]-AxnvqGerman Hospital05-31-2023 09:26-0400Diastolic blood jowzseqb77 mm[Hg]Gomez SALAM [phone]-LykcwGerman Hospital05-31-2023 09:26-0400Heart rate82 /minMaher SALAM [phone]-OsirsGerman Hospital05-31-2023 09:26-0400Respiratory rate16 /minMaher SALAM [phone]-XniznGerman Hospital05-31-2023 09:26-2272XyE8% (BldA) [Mass fraction]96 %Jason RUSSELL [phone]-SbnfvOhio [facility] Digest[facility] Klwibn87-32-9911 09:26-0400Systolic blood yafiigcw133 mm[Hg]Jason RUSSELL [phone]-QnnsgGerman Hospital04-28-2023 10:00-0400Diastolic blood wnlxbaoc26 mm[Hg]DO Vinay Bunting Work Phone: [facility]04-28-2023 10:00-0400 Heart rate76 /minDO Vinay Bunting Work Phone: [facility]04-28-2023 10:00-0400 Respiratory rate16 /minDO Vinay Bunting Work Phone: [facility]04-28-2023 10:00-0400 SaO2% (BldA) [Mass fraction]96 %DO Vinay Bunting Work Phone: [facility]04-28-2023 10:00-0400 Systolic blood rurnebwz910 mm[Hg]DO Vinay Bunting Work Phone: [facility]04-28-2023 08:00-0400 Body fgzeielzjzw94.7 [degF]DO Vinay Bunting Work Phone: [facility]04-28-2023 05:27-0400 Body yofajx17.8 kgDO Vinay Bunting Work Phone: [facility]04-27-2023 12:20-0400 Body .48 cmDO Vinay Bunting Work Phone: [facility]03-24-2023 14:08-0400 Body lnnaal875 cmMindy Cyrus PA-C Work Phone: [facility]03-24-2023 14:08-0400Body temperature 97.2 [degF]Daksha Cyrus PA-C Work Phone: [facility]03-24-2023 14:08-0400Body yeeaig41.8 kgMindy Cyrus PA-C Work Phone: [facility]03-24-2023 14:08-0400Diastolic blood oxldrjai51 mm[Hg]Daksha Cyrus PA-C Work Phone: [facility]03-24-2023 14:08-0400Heart rate84 /min Daksha Cyrus PA-C Work Phone: [facility]03-24-2023 14:08-0400Respiratory rate 16 /minMindy Cyrus PA-C Work Phone: [facility]03-24-2023 14:08-3952TqW3% (BldA) [Mass fraction]96 %Daksha Cyrus PA-C Work Phone: [facility]03-24-2023 14:08-0400Systolic blood kbjpcbbu163 mm[Hg]Daksha Cyrus PA-C Work Phone: [facility]02-13-2023 16:28-0500Diastolic blood krgxgvyi13 mm[Hg]DO Vinay Bunting Work Phone: [facility]02-13-2023 16:28-0500 Heart rate87 /minDO Vinay Bunting Work Phone: [facility]02-13-2023 16:28-0500 Respiratory rate16 /minDO Vinay Bunting Work Phone: [facility]02-13-2023 16:28-0500 SaO2% (BldA) [Mass fraction]96 %DO Vinay Bunting Work Phone: [facility]02-13-2023 16:28-0500 Systolic blood tcqugcgu401 mm[Hg]DO Vinay Bunting Work Phone: [facility]02-13-2023 13:16-0500 Body vhleln633.56 cmDO Vinay Bunting Work Phone: [facility]02-13-2023 13:16-0500 Body usurfkuhfrm84.5 [degF]DO Vinay Bunting Work Phone: [facility]02-13-2023 13:16-0500 Body kzqjxi70.06 kgDO Viany Bunting Work Phone: [facility]02-08-2023 10:10-0500 Blood Pressure LocationBeth Ruth [phone]-WnwejGerman Hospital02-08-2023 10:10-0500Body vhuxcdpxlui58.8 [degF]Nisa Shepherd [phone]-QoeupGerman Hospital02-08-2023 10:10-0500Diastolic blood fndokcgc68 mm[Hg]Nisa Shepherd [phone]-MglztGerman Hospital02-08-2023 10:10-0500Heart rate77 /minBeth Ruth [phone]-JxnxqGerman Hospital02-08-2023 10:10-0500Systolic blood nweqdbao517 mm[Hg]Nisa Chatmanmetz [phone]-CwpcpGerman Hospital01-27-2023 14:23-0500Body lxihwc590 cmMindy Cyrus PA-C Work Phone: [facility]01-27-2023 14:23-0500Body temperature 97.39 [degF]Daksha Cyrus PA-C Work Phone: [facility]01-27-2023 14:23-0500Body otiuov77.98 kgMindy Cyrus PA-C Work Phone: [facility]01-27-2023 14:23-0500Diastolic blood ubquvptj99 mm[Hg]Daksha Cyrus PA-C Work Phone: [facility]01-27-2023 14:23-0500Heart rate69 /min Daksha Kanger PA-C Work Phone: [facility]01-27-2023 14:23-0500Respiratory rate 16 /minMinvera Kanger PA-C Work Phone: [facility]01-27-2023 14:23-3117BbL7% (BldA) [Mass fraction]96 %Daksha Kanger PA-C Work Phone: [facility]01-27-2023 14:23-0500Systolic blood pcwuluds087 mm[Hg]Daksha Kanger PA-C Work Phone: [facility]12-15-2022 13:19-0500Body temperature 98.71 [degF]Chair Abhishek Work Phone: [facility]12-15-2022 13:19-0500Diastolic blood mm[Hg]Chair Dunnell Work Phone: [facility]12-15-2022 13:19-0500Heart rate82 /min Chair Dunnell Work Phone: [facility]12-15-2022 13:19-0500Respiratory rate 18 /minChair Abhishek Work Phone: [facility]12-15-2022 13:19-8906SiF4% (BldA) [Mass fraction]95 %Chair Dunnell Work Phone: [facility]12-15-2022 13:19-0500Systolic blood ozavqvfu347 mm[Hg]Chair Abhishek Work Phone: [facility]12-08-2022 13:45-0500Diastolic blood kxtupxec78 mm[Hg]Chair Dunnell Work Phone: [facility]12-08-2022 13:45-0500Heart rate78 /min Chair Dunnell Work Phone: [facility]12-08-2022 13:45-0500Respiratory rate 16 /minChair Dunnell Work Phone: [facility]12-08-2022 13:45-8441GyJ0% (BldA) [Mass fraction]99 %Chair Abhishek Work Phone: [place] [address]-08-2022 13:45-0500Systolic blood asjzaxqb011 mm[Hg]Chair Abhishek Work Phone: [facility]12-01-2022 10:01-0500Body stwjto174 cm Daksha Cyrus PA-C Work Phone: [facility]12-01-2022 10:01-0500Body temperature 97.9 [degF]Daksha Cyrus PA-C Work Phone: [facility]12-01-2022 10:01-0500Body fifmvh93.07 kgMindy Cyrus PA-C Work Phone: [facility]12-01-2022 10:01-0500Diastolic blood mazaamdm63 mm[Hg]Daksha Cyrus PA-C Work Phone: [facility]12-01-2022 10:01-0500Heart rate92 /min Daksha Cyrus PA-C Work Phone: [facility]12-01-2022 10:01-0500Respiratory rate 16 /minMindy Cyrus PA-C Work Phone: [facility]12-01-2022 10:01-8423FcB2% (BldA) [Mass fraction]98 %Daksha Cyrus PA-C Work Phone: [facility]12-01-2022 10:01-0500Systolic blood myuhyhns739 mm[Hg]Daksha Cyrus PA-C Work Phone: [facility]11-29-2022 11:30-0500Body .56 cmPeggy Delcid Other [employer] Other 11-29-2022 11:30-0500Body mass index (BMI) [Ratio] 36.39 kg/b4Ddomr Delcid Other [employer] Other 11-29-2022 11:30-0500Body ftavabrpxmy55.8 [degF]Anh Delcid Other [employer] Other 11-29-2022 11:30-0500Body hfqaxa95.16 kgPeggy Delcid Other [employer] Other 11-29-2022 11:30-0500Diastolic blood mm[Hg] Anh Delcid Other [employer] Other 11-29-2022 11:30-5077UoH9% (BldA) [Mass fraction]97 % Anh Delcid Other [employer] Other 11-29-2022 11:30-0500Systolic blood miwmonny349 mm[Hg] Anh Delcid Other [employer] Other 11-16-2022 10:51-0500Body cmHenry Walker MD Work Phone: [facility]11-16-2022 10:51-0500Body temperature 96.91 [degF]Henry Walker MD Work Phone: [facility]11-16-2022 10:51-0500Body jtmnwu67.07 kgHenry Walker MD Work Phone: [facility]11-16-2022 10:51-0500Diastolic blood wuzgjuuj25 mm[Hg]Henry Walker MD Work Phone: [facility]11-16-2022 10:51-0500Heart rate92 /min Henry Walker MD Work Phone: [facility]11-16-2022 10:51-0500Respiratory rate 18 /minHenry Walker MD Work Phone: [facility]11-16-2022 10:51-4399DnK6% (BldA) [Mass fraction]96 %Henry Walker MD Work Phone: [facility]11-16-2022 10:51-0500Systolic blood hrcjcaaw758 mm[Hg]Henry Walker MD Work Phone: [facility]10-18-2022 10:24-0400Diastolic blood kojyuxkm03 mm[Hg]Jose Carlos Mattson [facility]10-18-2022 10:24-0400Mean blood abgssvtb71 mm[Hg]Jose Carlos Mattson [facility]10-18-2022 10:24-0400 Systolic blood irfhilnx182 mm[Hg]Jose Carlos Mattson [facility]10-18-2022 10:10-0400Blood Pressure LocationDalillian Mattson [facility]10-18-2022 10:10-0400 Diastolic blood hcahjfrw46 mm[Hg]Jose Carlos Mattson [facility]10-18-2022 10:10-0400Heart rate90 /Carlos Mattson [facility]10-18-2022 10:10-0400 Respiratory rate18 /Carlos Mattson [facility]10-18-2022 10:10-0993KfF6% (BldA) [Mass fraction]99 %Jose Carlos Mattson [facility]10-18-2022 10:10-0400 Systolic blood mm[Hg]Jose Carlos Mattson [facility]09-06-2022 20:31-0400 Diastolic blood znbixihi90 mm[Hg]DO Vinay Bunting Work Phone: [facility]09-06-2022 20:31-0400 Heart rate73 /minDO Vinay Bunting Work Phone: [facility]09-06-2022 20:31-0400 Respiratory rate16 /minDO Vinay Bunting Work Phone: [facility]09-06-2022 20:31-0400 SaO2% (BldA) [Mass fraction]99 %DO Vinay Bunting Work Phone: [facility]09-06-2022 20:31-0400 Systolic blood sxnsgnej823 mm[Hg]DO Vinay Bunting Work Phone: [facility]09-06-2022 15:52-04[address]848.56 cmDO Vinay Bunting Work Phone: [facility]09-06-2022 15:52-0400 Body onnzyiwqdms98 [degF]DO Vinay Bunting Work Phone: [facility]09-06-2022 15:52-0400 Body kgdtuy18.06 kgDO Vinay Bunting Work Phone: [facility]07-28-2022 09:33-0400 Blood Pressure LocationMaher SALAM [facility]07-28-2022 09:33-0400 Diastolic blood mjqaswgg21 mm[Hg]Gomez SALAM [facility]07-28-2022 09:33-0400Heart rate87 /minMaher SALAM [facility]07-28-2022 09:33-0400 Respiratory rate14 /minMaher SALAM [facility]07-28-2022 09:33-9526KvT1% (BldA) [Mass fraction]97 %Gomez SALAM [facility]07-28-2022 09:33-0400 Systolic blood mm[Hg]Gomez SALAM [facility]07-28-2022 09:20-0400Blood Pressure LocationVther SALAM [facility]07-28-2022 09:20-0400 Diastolic blood nhheivcc85 mm[Hg]Gomez SALAM [facility]07-28-2022 09:20-0400Heart rate92 /minMaher SALAM [facility]07-28-2022 09:20-0400 Respiratory rate29 /minMaher SALAM [facility]07-28-2022 09:20-0904MvB3% (BldA) [Mass fraction]97 %Gomez SALAM [facility]07-28-2022 09:20-0400 Systolic blood qdtkybik395 mm[Hg]Gomez SALAM [facility]07-28-2022 09:15-0400Blood Pressure LocationMaher SALAM [facility]07-28-2022 09:15-0400 Diastolic blood uqbynluf73 mm[Hg]Gomez SALAM [facility]07-28-2022 09:15-0400Heart rate92 /minMaher SALAM [facility]07-28-2022 09:15-0400 Respiratory rate10 /minMaher SALAM [facility]07-28-2022 09:15-8989BjM4% (BldA) [Mass fraction]91 %Gomez SALAM [facility]07-28-2022 09:15-0400 Systolic blood zcgutwdn826 mm[Hg]Gomez SALAM [facility]07-28-2022 09:08-0400Body yjjndythygd36.34 [degF]Gomez SALAM [facility]07-28-2022 07:48-0400Body waqmgvhvhmz97.8 [degF][facility] SALAM [facility]06-08-2022 09:40-0400 Diastolic blood ddcwulom29 mm[Hg][facility] SALAM [phone]-DttyfOhio [facility] [id number] 09:40-0400Heart rate78 /minMaher SAW [phone]-ZyeaqOhio State East Hospital [facility] 06-08-2022 09:40-0400Systolic blood usnpkhzo082 mm[Hg] [facility] SALAM [phone]-BuzstOhio State East Hospital [facility] Encounters Encounter DateEncounter TypeCare ProviderFacilityStart: 35-23-6026tzahkkgqbv Verónica UgarteFacility:[facility]art: 08-07-2025 End: 85-91-8787prpptkzfazCVVEO M MUSSERFacility:[facility] HospitalStart: 07-24-2025 End: 95-95-0744jsnlghbwmeLxzutz Bunting DO Work Phone: [facility] Work Phone: Start: 07-24-2025 End: 92-56-2373Mhbgwsf encounter procedureChristopher Nathanael Henriquez DO-[facility] Work Phone: Start: 07-19-2025 End: 11-11-3156Rmgbevd encounter procedureDaryan Josse Matta DO-X[facility] Work Phone: Start: 07-19-2025 End: 85-03-8623lojtttokqjOuqscw Bunting DO Work Phone: [facility] Work Phone: Start: 07-11-2025 End: 73-52-9701yzisoffylbIwbmozd A. MouchliFacility:[facility] DHStart: 07-11-2025 End: 59-99-9904Frcmmcy encounter procedureVerónica Ugarte [phone]-IbubmOhio State East Hospital [facility] Start: 07-05-2025 End: 05-03-4324zhvveyovptFxhpuq Bunting DO Work Phone: [facility] Work Phone: Start: 07-05-2025 End: 00-99-4928Rzxzfxl encounter procedureMarilyn Stewart MD-[facility] Work Phone: Start: 06-26-2025 End: 99-68-7258Bkkhjca encounter procedureDajaylenenina Josse Matta DO-Lab [facility] [place] Work Phone: Start: 06-26-2025 End: 58-01-4050wuujwfokwsMcdpzm Bunting DO Work Phone: [facility] Work Phone: Start: 06-08-2025 End: 46-14-7834Tsjcwhpun to same day surgery centerVerónica Ugarte MD- [facility] Work Phone: Start: 06-08-2025 End: 86-45-4248igzafwtdhtZudtgw Bunting DO Work Phone: [facility] Work Phone: Start: 27-27-2771Zqs-patient / Non-visitBradley Rowland MD- [facility] Work Phone: Start: 06-07-2025 End: 88-02-4630Xpbwbcz encounter procedureNo Sh Aud Audiology Aid - Jenny Kee CI AUDComment on above:Hearing loss, mixed, bilateral (Primary Dx) Start: 06-07-2025 End: 60-93-7867twkjdtsyriNHBYBN LOWENot AvailableStart: 04-25-2025 End: 38-74-2834Lgwdin outpatient visit 15 minutesDaksha Bridges PA-C Work Phone: Hematology/OncologyComment on above:Anemia, unspecified type (Primary Dx); Iron deficiency anemia, unspecified iron deficiency anemia type; Stage 3b chronic kidney disease (HCC); Anemia in stage 3a chronic kidney disease (HCC)Start: 04-25-2025 End: 99-61-1622gzcejvyegoICHJT M MUSSERFacility:[facility] HospitalStart: 04-18-2025 End: 17-43-7123huhflprwmtAOYKJ M MUSSERFacility:[facility] HospitalStart: 04-11-2025 End: 32-24-4748Hjspxd-up encounterDaksha Bridges PA-C Work Phone: Hematology/OncologyComment on above:labs/follow up Start: 04-07-2025 End: 09-09-4795wjqqbbtszqNDVEB M MUSSERFacility:[facility] HospitalStart: 03-30-2025 End: 21-03-6237dwtfsgmhpvCbuwjnw A. MouchliFacility:[facility] DHStart: 03-30-2025 End: 85-99-0355Zooztpi encounter procedureVerónica Ugarte [phone]-GhwvbOhio State East Hospital [facility] Start: 03-27-2025 End: 02-64-4963wlyrclvqcuEaaibmf A. MouchliFacility:FTMCStart: 03-27-2025 End: 64-31-0855Dooslpx encounter procedureMomacario CrArpan Ugarte [facility] Start: 03-20-2025 End: 49-71-3536wvimzvzjmiGfzidgf Vjuanitaas Giedraitis MDFacility:PM [facility] Start: 03-06-2025 End: 19-32-2857Kwazif flowsheetAngela Lowe PA Work Phone: ana [place]UEStart: 03-06-2025 End: 54-32-4843Gpfjqz flowsheetAngela Lowe PA Work Phone: ana [place]UEStart: 03-06-2025 End: 28-95-2017Wbtcnn outpatient visit 25 minutesAngela Lowe PA Work Phone: ana BELLEVUEComment on above:Transient ischemic attack (Primary Dx); Polyneuropathy; Syncope and collapse; Carpal tunnel syndrome, bilateral upper limbsStart: 03-06-2025 End: 57-74-8400gucsmhddwoPVGUUY LOWENot AvailableStart: 02-20-2025 End: 85-24-9726usfvfvoixtKgsuilr Vytautas Giedraitis MDFacility:PM [facility] Start: 02-08-2025 End: 63-33-4336Wfzaubc encounter procedureDarrin Bunting DO Work Phone: [facility]-MRI [address] Work Phone: Start: 02-08-2025 End: 55-05-8269jtlnakrydcWsrepz Bunting DO Work Phone: [facility] Work Phone: Start: 01-09-2025 End: 30-92-3124Xitrci-up encounterDaksha Bridges PA-C Work Phone: Hematology/OncologyStart: 01-09-2025 End: 68-57-3048aqhuqtouckBzwdfay Vytautas Giedraitis MDFacility:PM [facility] Start: 01-06-2025 End: 54-66-3693Csquzu outpatient visit 15 minutesDaksha Bridges PA-C Work Phone: Hematology/OncologyComment on above:Iron deficiency anemia, unspecified iron deficiency anemia type (Primary Dx); Thrombocytopenia (HCC); Stage 3b chronic kidney disease (HCC)Start: 01-06-2025 End: 86-85-2427djqsybxjyxERAJX M MUSSERFacility:[facility] Hospitaltart: 01-03-2025 End: 91-01-6299Dusiqf flowsheetAngela Lowe PA Work Phone: [facility]ITALUEStart: 01-03-2025 End: 24-85-9783Nwvfeg flowsheetAngela Lowe PA Work Phone: ana [place]ILLEEVUEStart: 01-03-2025 End: 59-57-5726Appbol outpatient visit 15 minutesAngela Lowe PA Work Phone: aNA MYRIAMEVUEComment on above:Transient ischemic attack (Primary Dx); Polyneuropathy; Carpal tunnel syndrome, bilateral upper limbsStart: 01-03-2025 End: 39-92-5274eyzmloltofUFQUEC LOWENot AvailableStart: 01-02-2025 End: 79-67-2417Sruvlkwdy encounterDaksha Bridges PA-C Work Phone: Hematology/OncologyComment on above:Lab OrdersStart: 12-28-2024 End: 97-11-2765Nxjinmd encounter procedureDarrin Bunting DO Work Phone: [facility] Work Phone: Start: 12-28-2024 End: 72-21-5998ximttfhgkfAokmor Bunting DO Work Phone: [facility] Work Phone: Start: 12-27-2024 End: 69-25-1682ohserzccieGsxfwm Bunting DO Work Phone: [facility] Work Phone: Start: 12-27-2024 End: 91-28-6420Bicbjjd encounter procedureDarrin Bunting DO Work Phone: [facility] [place] Work Phone: Start: 12-15-2024 End: 20-61-3620Hjlzwkq encounter procedureDarrin Bunting DO Work Phone: [facility]-XRay [facility] Work Phone: Start: 12-15-2024 End: 77-24-7028hhxdmiyliaJgfiqt Bunting DO Work Phone: [facility] Work Phone: Start: 11-14-2024 End: 42-09-5127Qqmlvrl encounter procedureDarrin Bunting DO Work Phone: [facility] Work Phone: Start: 10-20-2024 End: 01-14-1881Cld-admission assessmentInmacario Ugarte [facility] Start: 10-10-2024 End: 06-40-1056Gxlfbqwfh encounterMinvera Bridges PA-C Work Phone: Hematology/OncologyComment on above:ResultsStart: 10-07-2024 End: 07-45-8058Lreerf outpatient visit 15 minutesDaksha Bridges PA-C Work Phone: Hematology/OncologyComment on above:Iron deficiency anemia, unspecified iron deficiency anemia type (Primary Dx); Thrombocytopenia (HCC); Stage 3b chronic kidney disease (HCC)Start: 10-07-2024 End: 05-64-1931offgssguspYGIIS M MUSSERFacility:[facility] Hospitaltart: 10-06-2024 End: 74-58-2304Unjmcjn encounter procedureDarrin Bunting DO Work Phone: [facility]-Electrodiagnostics Work Phone: Start: 10-06-2024 End: 21-66-6582cxnkestdapKroato BuntingFacility:[facility] Hospitaltart: 10-05-2024 End: 91-12-1567Jnzpfdo encounter procedureNoms Aud Audiology Aid - Jenny Sweet CI AUDComment on above:Hearing loss, mixed, bilateral (Primary Dx) Start: 10-05-2024 End: 18-54-9404fpugaefcbfZLTMTA LOWENot AvailableStart: 09-29-2024 End: 69-99-5591lixwyjoietRzparyu A. MouchliFacility:[facility] DHStart: 09-29-2024 End: 76-74-8746Ouhsgin encounter procedureMomacario Ugarte [phone]-VfqeuOhio State East Hospital [facility] Start: 09-19-2024 End: 56-42-1126Nzvphal encounter procedureDO Vinay Bunting Work Phone: [facility]-Lab [facility] [place] Work Phone: Start: 09-19-2024 End: 31-59-0182qmtoogganiIJ Vinay Bunting Work Phone: [facility] Work Phone: Start: 08-16-2024 End: 15-79-4689Khiwae flowsheetFelicia C Ulyssesnagel REAL ESTATE ECONOMIST Work Phone: noMS [address] STATE ROUTEStart: 08-16-2024 End: 28-02-0066Mvfduw flowsheetFelicia C Windnagel REAL ESTATE ECONOMIST Work Phone: NOMS [address] STATE ROUTEStart: 08-16-2024 End: 76-39-2081Mbarva outpatient visit 25 minutesFelicia C Chepegel REAL ESTATE ECONOMIST Work Phone: NOMS [address] STATE R[address]TEComment on above:Transient ischemic attack (Primary Dx); Palpitations; PolyneuropathyStart: 08-16-2024 End: 28-24-1821bnuzidajcdLDUYBGW C CONNERNot AvailableStart: 07-21-2024 End: 86-19-2516Gfqscwudxk and management of inpatientDO Vinay Bunting Work Phone: [facility] [place] [facility] Work Phone: Start: 07-21-2024 End: 09-10-4202jzqutcseifd encounterDO Vinay Bunting Work Phone: [facility] Work Phone: Start: 07-19-2024 End: 37-61-3129Bbhaxpsfx encounterMinvera Bridges PA-C Work Phone: Hematology/OncologyComment on above:ResultsStart: 07-15-2024 End: 97-94-5706Tdkfkd outpatient visit 15 minutesMinvera Bridges PA-C Work Phone: Hematology/OncologyComment on above:Iron deficiency anemia, unspecified iron deficiency anemia type (Primary Dx); Anemia of chronic renal failure, unspecified CKD stageStart: 07-04-2024 End: 41-15-1256nuyxazbzexHS Vinay Bunting Work Phone: [facility] Work Phone: Start: 07-04-2024 End: 88-59-4158Axuqbci encounter procedureDO Vinay Bunting Work Phone: [facility] Work Phone: Start: 05-24-2024 End: 34-01-3417jjbbzdmmeePP Vinay Bunting Work Phone: [facility] Work Phone: Start: 05-24-2024 End: 78-08-3023Smysyiz encounter procedureDO Vinay Bunting Work Phone: [facility]-Ultrasound [facility] [place] Work Phone: Start: 05-11-2024 End: 49-60-1710bxahvlcgsbHN Vinay Bunting Work Phone: [facility] Work Phone: Start: 05-11-2024 End: 17-14-1516Qzydmux encounter procedureDO Vinay Bunting Work Phone: [facility] Work Phone: Start: 23-27-6163Ktytqgmch encounterSamantha Mcmahan RN Hematology/OncologyComment on above:ResultsStart: 04-15-2024 End: 73-51-0935Xenozxw encounter procedureShana Flores APRN.[employer] Work Phone: Hematology/OncologyComment on above:Iron deficiency anemia, unspecified iron deficiency anemia type (Primary Dx); Anemia of chronic renal failure, unspecified CKD stage; Thrombocytopenia (HCC)Start: 03-28-2024 End: 07-29-2754Gzwrlui encounter procedureVerónica Ugarte [phone]-JqirvOhio State East Hospital [facility] Start: 02-25-2024 End: 64-80-2320asorskluzxDhvyh 12 Abhishek Work Phone: Hematology/OncologyComment on above:Iron deficiency anemia due to chronic blood loss (Primary Dx)Start: 02-18-2024 End: 14-88-4396qmquaduiwiZlecu 11 Abhishek Work Phone: Hematology/OncologyComment on above:Iron deficiency anemia due to chronic blood loss (Primary Dx)Start: 02-11-2024 End: 05-50-9090jqzuhsntrbMY Vinay Bunting Work Phone: [facility] Work Phone: Start: 02-11-2024 End: 12-83-3449Ejqtewu encounter procedureDO Vinay Bunting Work Phone: [facility]-XRay [facility] [place] Work Phone: Start: 17-37-2149Brlobp WorkLorkerri POTTERW Hematology/OncologyStart: 00-13-8383Tkbegdpnj encounterSamantha Mcmahan RN Hematology/OncologyComment on above:IV IronStart: 40-97-9417Obhmcudau encounter Samantha Mcmahan RNHematology/OncologyComment on above:Patient UpdateStart: 01-29-2024 End: 97-66-8082kjvkbvvduyHaske M Musser PA-C Work Phone: Hematology/OncologyComment on above:Stage 3b chronic kidney disease (HCC) (Primary Dx); Iron deficiency anemia secondary to inadequate dietary iron intakeStart: 01-29-2024 End: 93-05-3588Fhokhxo encounter procedureDaksha Bridges PA-C Work Phone: SANDUSKYStart: 01-28-2024 End: 86-03-4017Cflhulj encounter Ijeoma Hankins Ruth [facility] Start: 12-07-2023 End: 59-89-7082Ncbszsn encounter Ijeoma Hankins Ruht [phone]-GnhcaOhio State East Hospital [facility] Start: 07-90-1380Vmoplruyd encounterSamantha Mcmahan RN Hematology/OncologyComment on above:ResultsStart: 56-26-8052Drwyax outpatient visit 25 minutesPeggy [facility] OutPtStart: 10-20-2023 End: 27-28-3629jlscjdiczdCV Vinay Bunting Work Phone: [facility] Work Phone: Start: 10-20-2023 End: 32-62-1239Txlexfk encounter procedureDO Vinay Bunting Work Phone: [facility]-Sleep Lab Work Phone: start: 09-05-2023 End: 12-67-8559lzrjbycgneCL Vinay Bunting Work Phone: [facility] Work Phone: Start: 09-05-2023 End: 28-20-4004Yremwtz encounter procedureDO Vinay Bunting Work Phone: [facility]-Lab [facility] [place] Work Phone: Start: 21-80-3227Vvhllkpun encounterSamantha Mcmahan RN Hematology/OncologyComment on above:ResultsStart: 07-24-2023 End: 50-49-0774nomkkyxdqvCdypa M Musser PA-C Work Phone: Hematology/OncologyComment on above:Iron deficiency anemia secondary to inadequate dietary iron intake (Primary Dx); Stage 3b chronic kidney disease (HCC)Start: 07-24-2023 End: 67-39-8286Sxvjztd encounter procedureDaksha Bridges PA-C Work Phone: SANDUSKYStart: 85-26-0851Aqlnoyadi encounterDaksha Bridges PA-C Work Phone: Hematology/OncologyComment on above:ResultsStart: 33-83-5511Tkfxuohwv encounterKarlie Vallejo RNHematology/OncologyComment on above:ResultsStart: 05-01-2023 End: 79-59-7109qltezbfqxxTsxgc M Musser PA-C Work Phone: Hematology/OncologyComment on above:Iron deficiency anemia secondary to inadequate dietary iron intake (Primary Dx); Stage 3b chronic kidney disease (HCC)Start: 05-01-2023 End: 52-71-7225Edumljl encounter procedureDaksha Bridges PA-C Work Phone: SANDUSKYStart: 03-73-9109zpkfksujpgHpodghla:9090Start: 04-22-2023 End: 26-53-1802Xwjitno encounter procedureJason RUSSELL [facility] Start: 04-15-2023 End: 68-41-5294Ucupnar encounter procedureMaher SALAM [phone]-SypiaOhio State East Hospital [facility] Start: 03-27-2023 End: 49-40-9059etqokcliqgKS VINAY BUNTINGFacility:F8Rdulf: 03-13-2023 End: 04-43-7453vawecxyrtuRP Vinay Bunting Work Phone: [facility] Work Phone: Start: 03-13-2023 End: 61-90-1571Nervjgn encounter procedureDO Vinay Bunting Work Phone: [facility]-Electrodiagnostics Work Phone: Start: 03-11-2023 End: 25-30-1443Cascsbgewd and management of inpatientDO Vinay Bunting Work Phone: [facility] [place] [facility] Work Phone: Start: 15-00-7091eaalflrgqjHwobrvjq:9090Start: 02-23-2023 End: 12-40-8082mlhbcasohdBKFVI SALAMFacility:X5Wifun: 17-12-1555Bnordpxxu encounterSonia Rg RNHematology/OncologyComment on above:ResultsStart: 02-06-2023 End: 74-95-6281jwhhyqkjyfJepmjChito Bridges PA-C Work Phone: Hematology/OncologyComment on above:Iron deficiency anemia secondary to inadequate dietary iron intake (Primary Dx)Start: 02-06-2023 End: 90-70-4352Qcdqedd encounter Tiffani Bridges PA-C Work Phone: SANDUSKYStart: 01-16-2023 End: 13-41-1756Uyuanoi encounter procedureDO Vinay Bunting Work Phone: [facility]-Lab [facility] [place] Work Phone: Start: 01-08-2023 End: 35-19-9541Crtcpnz encounter procedureNisa Cr Shepherd [facility] Start: 12-29-2022 End: 50-20-5515Tctdmvjtr to same day surgery [facility] Vinay Matta Work Phone: [facility] HospitalStart: 12-29-2022 End: 04-30-9967cputtxmqxvSB Vinay Bunhomer Work Phone: [facility] Work Phone: Start: 12-24-2022 End: 77-79-0404Pizbict encounter procedureNisa Hankins Ruth [phone]-TiuwbOhio State East Hospital [facility] Start: 42-64-8574Eakbxufbx encounterSonia Rg RN Hematology/OncologyComment on above:ResultsStart: 12-12-2022 End: 10-55-6819rabjeyttqyKygbi M Musser PA-C Work Phone: Hematology/OncologyComment on above:Iron deficiency anemia secondary to inadequate dietary iron intake (Primary Dx)Start: 12-12-2022 End: 56-95-9905Lirakeo encounter Tiffani Bridges PA-C Work Phone: SANDUSKYStart: 10-30-2022 End: 35-17-0968iioyvpauiaAdnfd [address] [place] Work Phone: Hematology/OncologyComment on above:Iron deficiency anemia due to chronic blood loss (Primary Dx)Start: 10-23-2022 End: 45-52-4847ienqsxuigjDgtzc [address] [place] Work Phone: Hematology/OncologyComment on above:Iron deficiency anemia due to chronic blood loss (Primary Dx)Start: 91-09-7501Wblzsq WorkRenetta POTTERWHematology/OncologyStart: 10-16-2022 End: 51-34-3151Zepobat encounter Tiffani Bridges PA-C Work Phone: SANDUSKYStart: 10-16-2022 End: 10-74-2878essyyrgpncFjfaqChito Bridges PA-C Work Phone: Hematology/OncologyComment on above:Anemia, unspecified type (Primary Dx); Iron deficiency anemia secondary to inadequate dietary iron intakeIron deficiency anemia due to chronic blood loss (Primary Dx)Start: 10-15-2022 Telephone encounterFinancial Navigator Braden Work Phone: Hematology/OncologyComment on above:Benefits InvestigationStart: 52-47-2224Ppfllt outpatient visit 25 minutesPeggy [facility] SouthStart: 10-14-2022 End: 30-99-4306mhuesygkkxMJ Vinay Matta Work Phone: [facility] Work Phone: Start: 10-14-2022 End: 96-38-4089Fdabzue encounter procedureDO Vinay Matta Work Phone: [facility]-Sleep LabStart: 30-08-9172Hfdwdk WorkLori Alex WHematology/OncologyStart: 88-41-8494Tdelxzdvg encounterHenry Walker MD Work Phone: Hematology/OncologyComment on above:Results, LabStart: 10-01-2022 End: 58-53-3278ezcnsxkpidPealeTad Walker MD Work Phone: Hematology/OncologyComment on above:Anemia, unspecified type (Primary Dx)Start: 10-01-2022 End: 71-69-6856Ddaxsnn encounter Declan Walker MD Work Phone: SANDUSKYStart: 50-46-0606Lbhqd abstractBraden Walker MD Work Phone: Hematology/OncologyStart: 09-19-2022 End: 06-67-6721Jbwxybv encounter procedureNisa Shepherd [facility] Start: 09-09-2022 End: 17-17-6905wasghbtfkyEK DOCTOR MISCFacility:A5Xpfjh: 09-02-2022 End: 92-46-6500Gsbzibz encounter procedureDalillian Mattson [facility] Start: 07-31-2022 End: 30-20-4495Lcbrffl encounter procedureDO Vinay Bunting Work Phone: [facility] Start: 07-24-2022 End: 82-82-0357Guzvazr encounter procedureDO Vinay Bunting Work Phone: [facility]-Lab Main CampusStart: 07-22-2022 End: 28-16-0003Zwnvwkeys department patient visitDO Vinay Bunting Work Phone: [facility]-Emergency RoomStart: 06-24-2022 End: 37-17-2931jntmquxhsbZWGAF SALAMFacility:U1Ozsfz: 06-23-2022 End: 38-50-9534hqvazdxwurYY VINAY BUNTINGFacility:P6Rdctp: 06-16-2022 End: 88-95-4010Rsmfrny encounter procedureDO Vinay Bunting Work Phone: [facility] Start: 06-12-2022 End: 51-60-1630Kddvebb encounter procedureMaher SALAM [facility] Start: 05-21-2022 End: 76-50-2581Yyzvwgh encounter procedureDO Vinay Bunting Work Phone: [facility]-Lab Main CampusStart: 04-23-2022 End: 07-34-6108Kpylzyu encounter procedureMaher SALAM [phone]-[facility]zywdOhio [facility] Start: 04-22-2022 End: 96-82-7125Tpjpuml encounter procedureDO Vinay Bunting Work Phone: [facility]: 01-31-2021 End: 11-17-7076Ctrydps encounter procedureDarrin Bunting-Lab Main [place] Procedures DateProcedureProcedure DetailPerforming ClinicianStart: 15-48-5258Xjaqc X-ray of bilateral shouldersDarrin Bunting DO Work Phone: Start: 96-80-9023P-ray of both knees, standing views Vinay Bunting DO Work Phone: Start: 85-37-4595Sxgzcbjnsq elastography of liver Vinay Bunting DO Work Phone: Start: 22-49-5109OL lumbar spine wo conDarrin Bunting DO Work Phone: Start: 06-03-3104Zscsc cultureDarrin Bunting DO Work Phone: Start: 26-56-1164Uwmnjxgqx mammography of bilateral breastsDarrin Bunting DO Work Phone: Start: 52-17-0474V-ray of lumbar spine, six views including bending viewsDarrin Bunting DO Work Phone: Start: 67-81-8262OOXL-CoV-2, Influenza & RSV (PCR)DO Vinay Bunting Work Phone: Start: 58-92-7451Xwisuyj ultrasonography of bilateral carotid arteriesDO Vinay Bunting Work Phone: Start: 67-86-1743IHO of headDO Vinay Bunting Work Phone: Start: 10-04-4712JW of head without contrastDO Vinay Bunting Work Phone: Start: 80-89-9105Xoepj chest X-rayDO Vinay Bunting Work Phone: Start: 22-97-2525Ugzjjmnpkanuvvw of bilateral kidneys DO Vinay Bunting Work Phone: Start: 88-03-7688Khkfof tunnel syndrome (disorder) Verónica Ugarte Start: 36-10-9469Zsrwr chest X-rayDO Vinay Bunting Work Phone: Start: 09-83-3212KDR of headDO Vinay Bunting Work Phone: Start: 99-00-5439CF angiography of headDO Vinay Bunting Work Phone: Start: 66-82-5658SF angiography of neck vesselsDO Vinay Bunting Work Phone: Start: 25-14-9239AX of head without contrastDO Vinay Bunting Work Phone: Start: 39-59-8933Ijkoa chest X-rayDO Vinay Bunting Work Phone: Start: 03-56-5072Fttzc cultureDO Vinay Bunting Work Phone: Start: 62-38-9485LkyjgosianaAW Vinay Bunting Work Phone: Start: 85-02-7312Itbz energy X-ray absorptiometryDO Vinay Bunting Work Phone: Start: 22-27-4462Iyfnl chest X-rayDO Vinay Bunting Work Phone: Start: 67-11-7954Kqetdgupe mammography of bilateral breastsDO Vinay Bunting Work Phone: Start: 46-26-3365XzqwxupsbvrAdksepu [place] REAL ESTATE ECONOMIST Work Phone: Start: 09-92-8552IisceixgrmiBoepz SALAM Start: 05-49-4150EjybfunqkryzyzozeuzjnhkzncVnkfv SALAM Start: 88-00-8474N-ray of both kneesDO Vinay Bunhomer Work Phone: Scar managementMaher RUSSELL Urine cultureDO Vinay Bunhomer Work Phone: Plan of Treatment DateCare ActivityDetailAuthorStart: 15-53-9831Shkblmrkw for malignant neoplasm of colonNOMS HealthcareStart: 15-30-7703Txygmmmf ScreeningDiabetes Screening [facility]tart: 38-00-9434Grauntoc ScreeningDiabetes ScreeningUniversity Hospitals Health Systemtart: 40-04-5191Aaxaqhsw ScreeningDiabetes ScreeningUniversity Hospitals [facility] Start: 41-19-5786Payoxfew ScreeningDiabetes ScreeningUniversity Hospitals Health Systemtart: 93-33-0443Izrhpyvk ScreeningDiabetes ScreeningUniversity Hospitals Health Systemtart: 01-28-2027 Diabetes ScreeningDiabetes ScreeningUniversity Hospitals Health Systemtart: 41-49-0433Cblwweek ScreeningDiabetes ScreeningUniversity Hospitals Health Systemtart: 36-63-5725UZDDXPNY SCREEN DIABETES SCREENUniversity Hospitals Health Systemtart: 34-46-6057JMHOTDER SCREENDIABETES SCREEN [facility] Systemtart: 60-37-5154Pewjardi blood countHemoglobin/Hematocrit [facility] Systemtart: 78-24-5422Tldvybwxig measurementSerum CreatinineUniversity Hospitals Health Systemtart: 00-35-0057IYSYOMLE SCREENDIABETES SCREENUniversity Hospitals Health Systemtart: 54-17-8988Uuenzjww blood countHemoglobin/HematocritUniversity Hospitals Health Systemtart: 27-62-9647Gvcathhplk measurementSerum CreatinineUniversity Hospitals Health Systemtart: 90-10-4139OAVUOWUT SCREENDIABETES SCREENUniversity Hospitals Health Systemtart: 10-07-2025 Complete blood countHemoglobin/HematocritUniversity Hospitals Health Systemtart: 10-07-2025 Creatinine measurementSerum CreatinineUniversity Hospitals Health Systemtart: 68-94-1420WOWKOFRQ SCREENDIABETES SCREENUniversity Hospitals Health Systemtart: 08-04-2025 End: 59-72-9699Vacetu-up locamahjr42/19/2025 11:00 AM EDT Visit (SP) Office Hematology/Oncology [address] [place] [address] Daksha Bridges PA-C [address] [place] [address] 3 month follow up with Daksha and labHematology/OncologyComment on above:3 month follow up with Daksha and labStart: 08-04-2025 End: 61-71-5034Qplnuui encounter tazccdsqe51/19/2025 10:45 AM EDT Office Visit [facility] [address] [place] [address] 3 month follow up with Daksha and labNortAleda E. Lutz Veterans Affairs [facility] LaboratoryComment on above:3 month follow up with Daksha and lab Start: 38-04-2938Jmnvuvxlp vaccinationInfluenza Vaccine (#1)[facility] Start: 18-60-0171Mwjtvqzs blood countHemoglobin/HematocritCleveland ClinicStart: 77-24-8948Syknhmvwpr measurementSerum CreatinineCleveland ClinicStart: 06-26-2025 End: 36-56-1354Fsftrzh encounter xdyujcumk14/11/2025 10:00 AM EDT Office Visit [facility] [address] [place] [address] Trudy Weiss PA [address] [place] [address] MAXX [facility]STOWNtart: 49-38-6789HjswbweskMercy Health Clermont Hospitaltart: 25-37-3867Gcofxols blood countHemoglobin/HematocritCleveland ClinicStart: 64-21-6313Dxbuegpxko measurementSerum CreatinineCleveland ClinicStart: 04-07-2025 End: 27-73-0361Ntezad-up bnvqzsucl08/23/2025 2:00 PM EDT Visit (SP) Office Hematology/Oncology [address] [place], [place] [phone] Daksha Bridges PA-C [address] [place] [address] 3 month follow up with Daksha and labHematology/OncologyComment on above:3 month follow up with Daksha and labStart: 04-07-2025 End: 97-64-4783Pjsqpqz encounter klcxgzfey38/23/2025 1:45 PM EDT Office Visit [facility] [address] [place] [address] 3 month follow up with Daksha and labNortAleda E. Lutz Veterans Affairs [facility] LaboratoryComment on above:3 month follow up with Daksha and lab Start: 04-05-2025 End: 18-42-3247BBN W Auto Differential panel - BloodCOMPLETE BLOOD COUNT AND DIFFERENTIAL Lab Routine Iron deficiency anemia, unspecified iron deficiency anemia type Thrombocytopenia (HCC) Stage 3b chronic kidney disease (HCC) Expected: 04/05/2025 (Approximate), Expires: 07/05/2025leveland ClinicComment on above:Expected: 04/05/2025 (Approximate), Expires: 07/05/2025Start: 04-05-2025 End: 01-37-4616Arqghrzgagjrb metabolic 2000 panel - Serum or PlasmaCOMPREHENSIVE METABOLIC PANEL Lab Routine Iron deficiency anemia, unspecified iron deficiency anemia type Thrombocytopenia (HCC) Stage 3b chronic kidney disease (HCC) Expected: 04/05/2025 (Approximate), Expires: 07/05/2025[facility] ClinicComment on above:Expected: 04/05/2025 (Approximate), Expires: 07/05/2025Start: 04-05-2025 End: 71-93-8742Imuefyzs [Mass/volume] in Serum or PlasmaFERRITIN Lab Routine Iron deficiency anemia, unspecified iron deficiency anemia type Thrombocytopenia (HCC) Stage 3b chronic kidney disease (HCC) Expected: 04/05/2025 (Approximate), Expires: 07/05/2025[facility] ClinicComment on above:Expected: 04/05/2025 (Approximate), Expires: 07/05/2025Start: 04-05-2025 End: 10-35-9107Qkmv and Iron binding capacity panel - Serum or PlasmaIRON AND TIBC Lab Routine Iron deficiency anemia, unspecified iron deficiency anemia type Thrombocytopenia (HCC) Stage 3b chronic kidney disease (HCC) Expected: 04/05/2025 (Approximate), Expires: 07/05/2025[facility] Work Phone: Comment on above:Expected: 04/05/2025 (Approximate), Expires: 07/05/2025Start: 04-05-2025 End: 91-66-0893HHBEEYZXWUAU COUNTRETICULOCYTE COUNT Lab Routine Iron deficiency anemia, unspecified iron deficiency anemia type Thrombocytopenia (HCC) Stage 3b chronic kidney disease (HCC) Expected: 04/05/2025 (Approximate), Expires: 07/05/2025levelcape fear valley medical center ClinicComment on above:Expected: 04/05/2025 (Approximate), Expires: 07/05/2025Start: 03-06-2025 End: 69-40-8663Fzmfjiu encounter procedureANA WILLIAMSTOWNComment on above:Arrived Start: 46-65-8482Raqwmfmc blood countHemoglobin/HematocritUniversity Hospitals Health Systemtart: 38-96-7002Vnogvveqbx measurementSerum CreatinineCleUniversity Hospitals Geneva Medical Centertart: 22-48-2318Owyif screening for proteinDiabetes: Urine Protein ScreeningMercy Hospital JoplinStart: 01-06-2025 End: 43-38-3939Mhyvvz-up rbrcpjeba89/21/2025 2:30 PM EST Visit (SP) Office Hematology/Oncology [address] [place] [phone] Daksha Bridges, PAGayleC [address] [place] [address] 3 month follow up with labHematology/OncologyComment on above:3 month follow up with labStart: 01-06-2025 End: 70-04-2673Kridjan encounter pgyfqvgqn52/21/2025 2:15 PM EST Office Visit [facility] [address] [place] [address] 3 month follow up with labNortAleda E. Lutz [facility] Affairs [facility] LaboratoryComment on above:3 month follow up with labStart: 01-03-2025 End: 97-79-6813Krkyyer encounter procedureNOMS [place] STATE ROUTEComment on above:ArrivedStart: 01-02-2025 End: 68-26-9263NOG W Auto Differential panel - BloodCOMPLETE BLOOD COUNT AND DIFFERENTIAL Lab Routine Iron deficiency anemia, unspecified iron deficiency anemia type Expected: 01/02/2025, Expires: 04/03/2025[facility] Work Phone: Comment on above:Expected: 01/02/2025, Expires: 04/03/2025Start: 01-02-2025 End: 22-42-4198Pgsvpseketwvb metabolic 2000 panel - Serum or PlasmaCOMPREHENSIVE METABOLIC PANEL Lab Routine Iron deficiency anemia, unspecified iron deficiency anemia type Expected: 01/02/2025, Expires: 04/03/2025[facility] ClinicComment on above:Expected: 01/02/2025, Expires: 04/03/2025Start: 01-02-2025 End: 56-59-9377Pffmmtam [Mass/volume] in Serum or PlasmaFERRITIN Lab Routine Iron deficiency anemia, unspecified iron deficiency anemia type Expected: 01/02, Expires: 04/03/2025[facility] ClinicComment on above:Expected: 01/02/2025, Expires: 04/03/2025Start: 01-02-2025 End: 31-95-2636Iafe and Iron binding capacity panel - Serum or PlasmaIRON AND TIBC Lab Routine Iron deficiency anemia, unspecified iron deficiency anemia type Expected:01/02/2025, Expires: 04/03/2025[facility] ClinicComment on above: Expected: 01/02/2025, Expires: 04/03/2025Start: 01-02-2025 End: 99-79-2162YNDBBVUQDHPH COUNTRETICULOCYTE COUNT Lab Routine Iron deficiency anemia, unspecified iron deficiency anemia type Expected: 01/02/2025, Expires: 04/03/2025[facility] ClinicComment on above:Expected: 01/02/2025, Expires: 04/03/2025Start: 77-01-1217Fskghajs identified in Urine by CultureUrine Culture [facility] Hospitaltart: 49-55-9238Kcpbu cultureMercy Health Clermont Hospitaltart: 12-05-2024 End: 65-63-6472Efscyov encounter xhccevzoh08/20/2025 8:40 AM EST Office Visit [facility] [place] [address] [place] [phone] Queta Prieto, REAL ESTATE ECONOMIST [address] [place] [address] [facility] [facility] ROUTEStart: 11-16-2024 Advance Directive DiscussionAdvance Directive DiscussionCleohiohealth pickerington [facility]ist [facility] ClinicStart: 01-01-2025Medicare Advantage Annual Wellness VisitMediAscension [facility] Annual Wellness VisitUniversity Hospitals Health Systemtart: 10-15-2024 End: 04-03-4473RXP W Auto Differential panel - BloodCOMPLETE BLOOD COUNT AND DIFFERENTIAL Lab Routine Iron deficiency anemia, unspecified iron deficiency anemia type Anemia of chronic renal failure, unspecified CKD stage Expected: 10/15/2024, Expires:01/14/2025[facility] Work Phone: Comment on above:Expected: 10/15/2024, Expires: 01/14/2025Start: 10-15-2024 End: 53-89-6284Kigziwhwpxrww metabolic 2000 panel - Serum or PlasmaCOMPREHENSIVE METABOLIC PANEL Lab Routine Iron deficiency anemia, unspecified iron deficiency anemia type Anemia of chronic renal failure, unspecified CKD stage Expected: 10/15/2024, Expires: 01/14/2025[facility] ClinicComment on above:Expected: 10/15/2024, Expires: 01/14/2025Start: 10-15-2024 End: 35-07-1603Fjbvjevc [Mass/volume] in Serum or PlasmaFERRITIN Lab Routine Iron deficiency anemia, unspecified iron deficiency anemia type Anemia of chron ic renal failure, unspecified CKD stage Expected: 10/15/2024, Expires: 01/14/2025[facility] ClinicComment on above:Expected: 10/15/2024, Expires: 01/14/2025Start: 10-15-2024 End: 00-64-5638Obii and Iron binding capacity panel - Serum or PlasmaIRON AND TIBC Lab Routine Iron deficiency anemia, unspecified iron deficiency anemia type Anemia ofchronic renal failure, unspecified CKD stage Expected: 10/15/2024, Expires: 5C[facility] ClinicComment on above:Expected: 10/15/2024, Expires: 01/14/2025Start: 10-15-2024 End: 37-45-7996VHWQDKFPWDAS COUNTRETICULOCYTE COUNT Lab Routine Iron deficiency anemia, unspecified iron deficiency anemia type Anemia of chronic renal failure, unspecified CKD stage Expected: 10/15/2024, Expires: 5[facility] Comment on above:Expected: 10/15/2024, Expires: 01/14/2025Start: 10-07-2024 End: 11-68-0564Sydptm-up legtmcjiu99/22/2024 2:30 PM EST Visit (SP) Office Hematology/Oncology [address] [place] [address] [place], [place] [phone] Daksha Bridges PA-C [address] [place] [address] 3 month follow up with labHematology/OncologyComment on above:3 month follow up with labStart: 10-07-2024 End: 29-08-7195Thypqys encounter descaxlrm82/22/2024 2:15 PM EST Office Visit [facility] [address] [place] [address] [place] [address] 3 month follow up with labNortAleda E. Lutz [facility] Affairs [facility] LaboratoryComment on above:3 month follow up with labStart: 08-16-2024 End: 35-29-6433Ertoztm event monitorCardiac event monitor Cardiac Services Routine Transient ischemic attack Palpitations Expected: 08/16/2024 (Approximate), Expires: 08/16/2026[facility] Work Phone: comment on above:Expected: 08/16/2024 (Approximate), Expires: 08/16/2026Start: 08-16-2024 End: 69-93-3290Mskhfiu encounter zxzozarwd41/01/2024 9:00 AM EDT Office Visit [facility] [address] [place] [address] Conner Queta C, REAL ESTATE ECONOMIST [address] [place] [address] ArrivedNOMT [place] [facility] ROUTEComment on above:ArrivedStart: 78-64-5868Exkclevvatctc metabolic 2000 panel - Serum or PlasmaMercy Health Clermont Hospitaltart: 07-22-2024 End: 53-43-3038FrwmxuallSt. Elizabeth Hospital CenterStart: 59-32-1339Cqzsbjtytnn of acetylcholine receptor antibodyMercy Health Clermont Hospitaltart: 08-91-9109BzsbbrpchMercy Health Clermont Hospitaltart: 82-60-8008Roalmvj ultrasonography of bilateral carotid arteriesUS carotid doppler [facility]tart: 07-00-7462IP Brain WO contrastMercy Health Clermont Hospitaltart: 04-93-5474FEY of headMR head/brain wo [facility] CenterStart: 78-84-4682CS.doppler Carotid arteries - bilateralMercy Health Clermont Hospitaltart: 07-30-3572Gghtpqpm therapy procedureMercy Health Clermont Hospitaltart: 41-20-0377Vokczdga to neurologistMercy Health Clermont Hospitaltart: 89-26-0451Kuzqluun to occupational therapist [facility] Hospitaltart: 27-10-8505Fmewtlhr to speech and language therapy serviceMercy Health Clermont Hospitaltart: 07-21-2024 [facility] CenterStart: 77-59-6857Kthahxis admissionMercy Health Clermont Hospitaltart: 24-13-8584Rtkmk-19 Vaccine ( season) Covid-19 Vaccine ( season)[facility] Systemtart: 67-68-9378Yevfu-19 Vaccine ( season)Covid-19 Vaccine ( season)[facility] Systemtart: 50-06-1073Lnavpnsdc vaccinationInfluenza Vaccine (#1)[facility] Systemtart: 07-15-2024 End: 21-89-6292Ypodrh-up zhaucgkqn39/30/2024 2:30 PM EDT Visit (SP) Office Hematology/Oncology [address] [place], [place] [phone] Daksha Bridges PA-C [address] [place] [address] 3 month follow up with labHematology/OncologyComment on above:3 month follow up with labStart: 07-15-2024 End: 82-42-2193Dhujpqb encounter bwigfgcpk25/30/2024 2:15 PM EDT Office Visit [facility] [address] [place] [address] 3 month follow up with labNortAleda E. Lutz Veterans Affairs [facility] LaboratoryComment on above:3 month follow up with labStart: 07-11-2024 End: 02-28-2506DTG W Auto Differential panel - BloodCOMPLETE BLOOD COUNT AND DIFFERENTIAL Lab Routine Iron deficiency anemia, unspecified iron deficiency anemia type Anemia of chronic renal failure, unspecified CKD stage Thrombocytopenia (HCC) Expected: 07/11/2024 (Approximate), Expires: 10/10/2024 [facility] Work Phone: Comment on above:Expected: 07/11/2024 (Approximate), Expires: 10/10/2024Start: 07-11-2024 End: 37-71-4721Gzzufyjvmsgcc metabolic 2000 panel - Serum or PlasmaCOMPREHENSIVE METABOLIC PANEL Lab Routine Iron deficiency anemia, unspecified iron deficiency anemia type Anemia of chronic renal failure, unspecified CKD stage Thrombocytopenia (HCC) Expected: 07/11/2024 (Approximate), Expires: 10/10/2024 [facility] CenterComment on above:Expected: 07/11/2024 (Approximate), Expires: 10/10/2024Start: 07-11-2024 End: 78-09-4269Smwdjhgk [Mass/volume] in Serum or PlasmaFERRITIN Lab Routine Iron deficiency anemia, unspecified iron deficiency anemia type Anemia of chron ic renal failure, unspecified CKD stage Thrombocytopenia (HCC) Expected: 07/11/2024 (Approximate), Expires: 10/10/2024[facility] ClinicComment on above: Expected: 07/11/2024 (Approximate), Expires: 10/10/2024Start: 07-11-2024 End: 48-93-3358Hdrt and Iron binding capacity panel - Serum or PlasmaIRON AND TIBC Lab Routine Iron deficiency anemia, unspecified iron deficiency anemia type Anemia ofchronic renal failure, unspecified CKD stage Thrombocytopenia (HCC) Expected: 07/11/2024 (Approximate), Expires: 10/10/2024[facility] ClinicComment on above:Expected: 07/11/2024 (Approximate), Expires: 10/10/2024Start: 07-11-2024 End: 04-14-6118OMGLPBGBOJHS COUNTRETICULOCYTE COUNT Lab Routine Iron deficiency anemia, unspecified iron deficiency anemia type Anemia of chronic renal failure, unspecified CKD stage Thrombocytopenia (HCC) Expected: 07/11/2024 (Appro ximate), Expires: 10/10/2024[facility] ClinicComment on above:Expected: 07/11/2024 (Approximate), Expires: 10/10/2024Start: 04-30-2024 End: 54-84-5240ZIX W Auto Differential panel - BloodCBC + DIFF Lab Routine Stage 3b chronic kidney disease (HCC) Iron deficiency anemia secondary to inadequate dietary iron intake Expected: 04/30/2024 (Approximate), Expires: 07/30/2024 [facility] Work Phone: Comment on above:Expected: 04/30/2024 (Approximate), Expires: 07/30/2024Start: 04-30-2024 End: 92-47-2966Bnncesfcuxxvd metabolic 2000 panel - Serum or PlasmaCOMP METABOLIC PANEL Lab Routine Stage 3b chronic kidney disease (HCC) Iron deficiency anemia secondary to inadequate dietary iron intake Expected: 04/30/2024 (Approximate), Expires: 07/30/2024[facility] Work Phone: Comment on above:Expected: 04/30/2024 (Approximate), Expires: 07/30/2024Start: 04-30-2024 End: 36-69-4509Xiquqxyz [Mass/volume] in Serum or PlasmaFERRITIN BLD Lab Routine Stage 3b chronic kidney disease (HCC) Iron deficiency anemia secondary to i nadequate dietary iron intake Expected: 04/30/2024 (Approximate), Expires: 07/30/[address]24[facility] Work Phone: Comment on above:Expected: 04/30/2024 (Approximate), Expires: 07/30/2024Start: 04-30-2024 End: 85-41-9378Kxxo and Iron binding capacity panel - Serum or PlasmaIRON + TIBC Lab Routine Stage 3b chronic kidney disease (HCC) Iron deficiency anemia secondary to inadequate dietary iron intake Expected: 04/30/2024 (Approximate), Expires: 07/30/[address]24[facility] Work Phone: Comment on above:Expected: 04/30/2024 (Approximate), Expires: 07/30/2024Start: 86-19-7679Edkefnh Directive DiscussionAdvance Directive DiscussionUniversity Hospitals Health Systemtart: 27-60-6817Kivuystqsn Health Screening Behavioral Health ScreeningUniversity Hospitals Health Systemtart: 09-83-3250Xjfcgzuhkw AssessmentDepression AssessmentUniversity Hospitals Health Systemtart: 08-01-2023 End: 61-61-7538YWZ W Auto Differential panel - BloodCBC + DIFF Lab Routine Iron deficiency anemia secondary to inadequate dietary iron intake Expected: 08/01/2023 (Approximate), Expires: 10/01/[address]23[facility] Work Phone: Comment on above:Expected: 08/01/2023 (Approximate), Expires: 10/01/2023Start: 08-01-2023 End: 53-16-9457Qtxnsogiclded metabolic 2000 panel - Serum or PlasmaCOMP METABOLIC PANEL Lab Routine Iron deficiency anemia secondary to inadequate dietary iron intakeExpected: 08/01/2023 (Approximate), Expires: 10/01/2023 [facility] Work Phone: Comment on above:Expected: 08/01/2023 (Approximate), Expires: 10/01/2023Start: 08-01-2023 End: 07-55-7940Jfsxrkfn [Mass/volume] in Serum or PlasmaFERRITIN BLD Lab Routine Iron deficiency anemia secondary to inadequate dietary iron intake Expected: 08/01/2023 (Approximate), Expires: 10/01/[address]23[facility] Work Phone: Comment on above:Expected: 08/01/2023 (Approximate), Expires: 10/01/2023Start: 08-01-2023 End: 76-58-4829Eruh and Iron binding capacity panel - Serum or PlasmaIRON + TIBC Lab Routine Iron deficiency anemia secondary to inadequate dietary iron intake Expected: 08/01/2023 (Approximate), Expires: 10/01/2023[facility] Work Phone: Comment on above:Expected: 08/01/2023 (Approximate), Expires: 10/01/2023Start: 07-24-2023 End: 87-46-1285LWE W Auto Differential panel - BloodCBC + DIFF Lab Routine Iron deficiency anemia secondary to inadequate dietary iron intake Stage 3b chronic kidney disease (HCC) Expected: 07/24/2023, Expires: 09/23/[address]23[facility] Work Phone: Comment on above:Expected: 07/24/2023, Expires: 09/23/2023Start: 07-24-2023 End: 27-09-1142Hwjfobvxrghpc metabolic 2000 panel - Serum or PlasmaCOMP METABOLIC PANEL Lab Routine Iron deficiency anemia secondary to inadequate dietary iron intakeStage 3b chronic kidney disease (HCC) Expected: 07/24/2023, Expires: 09/23/[address]23[facility] Work Phone: Comment on above:Expected: 07/24/2023, Expires: 09/23/2023Start: 07-24-2023 End: 24-06-4768Jlqjzmkn [Mass/volume] in Serum or PlasmaFERRITIN BLD Lab Routine Iron deficiency anemia secondary to inadequate dietary iron intake Stage 3b chronic kidney disease (HCC) Expected: 07/24/2023, Expires: 09/23/[address]23[facility] Work Phone: Comment on above:Expected: 07/24/2023, Expires: 09/23/2023Start: 07-24-2023 End: 20-85-6329Zdrn and Iron binding capacity panel - Serum or PlasmaIRON + TIBC Lab Routine Iron deficiency anemia secondary to inadequate dietary iron intake Stage 3bchronic kidney disease (HCC) Expected: 07/24/2023, Expires: 09/23/2023 [facility] Work Phone: Comment on above:Expected: 07/24/2023, Expires: 09/23/2023Start: 37-38-5941Sjqub-19 Vaccine ()Covid-19 Vaccine ()[facility]: 78-58-8586Mqwwtkjgb vaccination [facility]: 05-09-2023 End: 68-58-7160RVW W Auto Differential panel - BloodCBC + DIFF Lab Routine Iron deficiency anemia secondary to inadequate dietary iron intake Expected: 05/09/2023 (Approximate), Expires: 07/09/2023[facility] Work Phone: Comment on above:Expected: 05/09/2023 (Approximate), Expires: 07/09/2023Start: 05-09-2023 End: 68-04-7047Fhciffhcevehl metabolic 2000 panel - Serum or PlasmaCOMP METABOLIC PANEL Lab Routine Iron deficiency anemia secondary to inadequate dietary iron intakeExpected: 05/09/2023 (Approximate), Expires: 07/09/2023 [facility] Work Phone: Comment on above:Expected: 05/09/2023 (Approximate), Expires: 07/09/2023Start: 05-09-2023 End: 24-06-7895Xfagrrpm [Mass/volume] in Serum or PlasmaFERRITIN BLD Lab Routine Iron deficiency anemia secondary to inadequate dietary iron intake Expected: 05/09/2023 (Approximate), Expires: 07/09/2023[facility] Work Phone: Comment on above:Expected: 05/09/2023 (Approximate), Expires: 07/09/2023Start: 05-09-2023 End: 00-28-0054Eyul and Iron binding capacity panel - Serum or PlasmaIRON + TIBC Lab Routine Iron deficiency anemia secondary to inadequate dietary iron intake Expected: 05/09/2023 (Approximate), Expires: 07/09/2023[facility] Work Phone: Comment on above:Expected: 05/09/2023 (Approximate), Expires: 07/09/2023Start: 37-00-7491AyfkojrqmMercy Health Clermont Hospitaltart: 03-56-3199Njtjvxsv therapy procedureMercy Health Clermont Hospitaltart: 53-92-6414Zsoozvct admissionMercy Health Clermont Hospitaltart: 03-11-2023 Referral to neurologistMercy Health Clermont Hospitaltart: 02-09-2023 End: 69-83-4169ZJS W Auto Differential panel - BloodCBC + DIFF Lab Routine Iron deficiency anemia secondary to inadequate dietary iron intake Expected: 02/09/2023 (Approximate), Expires: 04/11/2023[facility] Work Phone: Comment on above:Expected: 02/09/2023 (Approximate), Expires: 04/11/2023Start: 02-09-2023 End: 71-37-0565Hqfxvoewfrjrj metabolic 2000 panel - Serum or PlasmaCOMP METABOLIC PANEL Lab Routine Iron deficiency anemia secondary to inadequate dietary iron intakeExpected: 02/09/2023 (Approximate), Expires: 04/11/2023 [facility] Work Phone: Comment on above:Expected: 02/09/2023 (Approximate), Expires: 04/11/2023Start: 02-09-2023 End: 36-43-1483Erjsndbr [Mass/volume] in Serum or PlasmaFERRITIN BLD Lab Routine Iron deficiency anemia secondary to inadequate dietary iron intake Expected: 02/09/2023 (Approximate), Expires: 04/11/2023[facility] Work Phone: Comment on above:Expected: 02/09/2023 (Approximate), Expires: 04/11/2023Start: 02-09-2023 End: 47-80-3152Jvey and Iron binding capacity panel - Serum or PlasmaIRON + TIBC Lab Routine Iron deficiency anemia secondary to inadequate dietary iron intake Expected: 02/09/2023 (Approximate), Expires: 04/11/2023[facility] Work Phone: Comment on above:Expected: 02/09/2023 (Approximate), Expires: 04/11/2023Start: 02-06-2023 End: 72-37-6142HLQ W Auto Differential panel - BloodCBC + DIFF Lab Routine Iron deficiency anemia secondary to inadequate dietary iron intake Expected: 02/06/2023, Expires: 04/08/2023[facility] Work Phone: Comment on above:Expected: 02/06/2023, Expires: 04/08/2023Start: 02-06-2023 End: 59-87-7259Qqjgwhlwhraob metabolic 2000 panel - Serum or PlasmaCOMP METABOLIC PANEL Lab Routine Iron deficiency anemia secondary to inadequate dietary iron intakeExpected: 02/06/2023, Expires: 04/08/2023[facility] Work Phone: Comment on above:Expected: 02/06/2023, Expires: 04/08/2023Start: 02-06-2023 End: 15-86-4516Neia and Iron binding capacity panel - Serum or PlasmaIRON + TIBC Lab Routine Iron deficiency anemia secondary to inadequate dietary iron intake Expected: 02/06/2023, Expires: 04/08/2023[facility] Work Phone: Comment on above:Expected: 02/06/2023, Expires: 04/08/2023Start: 85-82-9193MmtaebareMercy Health Clermont Hospitaltart: 11-27-2022 End: 13-41-9652WNW W Auto Differential panel - BloodCBC + DIFF Lab Routine Anemia, unspecified type Iron deficiency anemia secondary to inadequate dietary iron intake Expected: 11/27/2022, Expires: 01/27/2023[facility] Work Phone: Comment on above:Expected: 11/27/2022, Expires: 01/27/2023Start: 11-27-2022 End: 73-29-0993Ubegqsklinzrw metabolic 2000 panel - Serum or PlasmaCOMP METABOLIC PANEL Lab Routine Anemia, unspecified type Iron deficiency anemia secondary to inadequate dietary iron intake Expected: 11/27/2022, Expires: 01/27/2023[facility] Work Phone: Comment on above:Expected: 11/27/2022, Expires: 01/27/2023Start: 11-27-2022 End: 27-54-2156Sxjcntsd [Mass/volume] in Serum or PlasmaFERRITIN BLD Lab Routine Anemia, unspecified type Iron deficiency anemia secondary to inadequate dietary iron intake Expected: 11/27/2022, Expires: 01/27/2023[facility] Work Phone: Comment on above:Expected: 11/27/2022, Expires: 01/27/2023Start: 11-27-2022 End: 83-56-7550Kpuz and Iron binding capacity panel - Serum or PlasmaIRON + TIBC Lab Routine Anemia, unspecified type Iron deficiency anemia secondary to inadequate dietary iron intake Expected: 11/27/2022, Expires: 01/27/2023 [facility] Work Phone: Comment on above:Expected: 11/27/2022, Expires: 01/27/2023Start: 95-44-3591RPFZNKE DIRECTIVE DISCUSSIONADVANCE DIRECTIVE DISCUSSIONUniversity Hospitals Health Systemtart: 34-49-8489LTZRXBPYCC ASSESSMENTDEPRESSION ASSESSMENTUniversity Hospitals Health Systemtart: 10-29-2022 End: 00-34-8233ZCEYJFQSKM PROTEIN, SERUM (BLOOD)MONOCLONAL PROTEIN, SERUM (BLOOD) Lab Routine Anemia, unspecified type Expected: 10/29/2022 (Approximate), Expires: 12/29/2022[facility] Work Phone: Comment on above:Expected: 10/29/2022 (Approximate), Expires: 12/29/2022Start: 10-29-2022 End: 77-73-5226UWOGXJZ ELECTROPHORESIS SERUM W/INTERPPROTEIN ELECTROPHORESIS SERUM W/INTERP Lab Routine Anemia, unspecified type Expected: 10/29/2022 (Ap proximate), Expires: 12/29/2022[facility] Work Phone: Comment on above:Expected: 10/29/2022 (Approximate), Expires: 12/29/2022Start: 10-01-2022 End: 62-42-5610Sypcvrnhj (Vitamin B12) [Mass/volume] in Serum or [facility] Work Phone: Comment on above:Expected: 10/01/2022, Expires: 12/01/2022Start: 10-01-2022 End: 26-96-6828Lbiheelz [Mass/volume] in Serum or [facility] Work Phone: Comswhm on above:Expected: 10/01/2022, Expires: 10/01/2023Start: 10-01-2022 End: 79-14-9915Aneftc [Mass/volume] in Serum or [facility] Work Phone: Comment on above:Expected: 10/01/2022, Expires: 12/01/2022Start: 10-01-2022 End: 34-73-5303Vile and Iron binding capacity panel - [facility] or [facility] Work Phone: Comgmzi on above:Expected: 10/01/2022, Expires: 10/01/2023Start: 10-01-2022 End: 87-07-0180YRBGBTE ELECT RND UR W/INTERPCMercy Health St. [facility] Work Phone: Comment on above:Expected: 10/01/2022, Expires: 12/01/2022Start: 10-01-2022 End: 73-39-8113Hiys [Mass/volume] in Serum or [facility] Work Phone: Comcdgh on above:Expected: 10/01/2022, Expires: 12/01/2022Start: 67-31-3294Vmgnjxgqr vaccinationINFLUENZA (#1)[facility] Start: 64-08-1362PZSLALP DIRECTIVE DISCUSSIONADVANCE DIRECTIVE DISCUSSION [facility]: 35-94-4083FCKQGPTBHD ASSESSMENTDEPRESSION ASSESSMENT [facility]: 49-95-5218DLOED-19 VACCINE (4 - Booster for Pfizer series)COVID-19 VACCINE (4 - Booster for Pfizer series)[facility]: 62-91-6844NWUXT-19 VACCINE (4 - Pfizer series)COVID-19 VACCINE (4 - Pfizer series)[facility]: 89-32-0389Jmhxwkddvuyu Vaccine: 50+ (2 of 2 - PCV) Pneumococcal Vaccine: 50+ (2 of 2 - PCV)[facility]: 08-16-2019 Pneumococcal Vaccine: 65+ (2 - PCV)Pneumococcal Vaccine: 65+ (2 - PCV)[facility]: 42-02-1010Wdxxmjleatjp Vaccine: 65+ (2 of 2 - PCV)Pneumococcal Vaccine: 65+ (2 of 2 - PCV)[facility]: 02-43-4456Cbmfuvmlmkic Vaccine: 65+ Years (2 of 2 - PCV)Pneumococcal Vaccine: 65+ Years (2 of 2 - PCV) [facility]Start: 06-36-2734TMMBJILCCCWE: 65+ (2 - PCV)PNEUMOCOCCAL: 65+ (2 - PCV)[facility]: 85-13-0718TNAV DENSITYBONE DENSITYUniversity Hospitals [facility] Start: 57-74-3225Mpns Density ScreeningBone Density ScreeningUniversity Hospitals Ely[facility] Medical Center Start: 15-10-6795BOLTEZXNYJEE: 65+ (1 - PCV)PNEUMOCOCCAL: 65+ (1 - PCV)[facility]: 26-60-9549Egrsxybzx for osteoporosisBone Density Screening [facility]: 39-46-5556WUP Vaccine (1 - 1-dose 60+ series)RSV Vaccine (1 - 1-dose 60+ series)[facility]: 83-50-5843LLJPTWZT VACCINE (1 of 2)SHINGRIX VACCINE (1 of 2)[facility]: 48-62-4369UQYNSYQJF (FIT-DNA) COLOGUARD (FIT-DNA)[facility]: 72-65-4717OiudxpwlmufHUZHHUGAPIH [facility]: 86-43-9068MWIGZIWWOU CANCER SCREENINGCOLORECTAL CANCER SCREENINGUniversity Hospitals Health Systemtart: 36-72-0832NJ COLONOGRAPHYCT COLONOGRAPHY [facility]: 97-16-0669ICZTMJIH SCREENDIABETES SCREENUniversity Hospitals Ely[facility] Center Start: 24-26-7923RQVEZ OCCULT BLOODFECAL OCCULT BLOODUniversity Hospitals Health Systemtart: 73-24-8960Cjrpl 1996 panel - Serum or PlasmaLipid ScreeningUniversity Hospitals Elyria Medical Center Start: 78-20-1827Ohxtn panelLipid ScreeningUniversity Hospitals Health Systemtart: 1993 LIPID SCREENLIPID SCREENUniversity Hospitals Health Systemtart: 50-43-9093Gtdtkkvcm for malignant neoplasm of colonUniversity Hospitals Health Systemtart: 94-37-4237ORMIBIWHXQZMSJDCFPSYUGXWFQ [facility]: 12-19-5521VztsckjviviQqkdrolnm ClinicStart: 1967 Urine microalbumin profileUniversity Hospitals Health Systemtart: 84-94-0267Lmave screening for proteinDiabetes: Urine Protein ScreeningMercy Hospital JoplinStart: 95-55-6874Drzome PCP Team Chronic Disease VisitAnnual PCP Team Chronic Disease VisitUniversity Hospitals Health Systemtart: 63-19-1988Xpzwotl ScreeningAnxiety ScreeningUniversity Hospitals Health Systemtart: 30-33-5435Btotpdopxe ScreeningDepression ScreeningUniversity Hospitals Health Systemtart: 78-06-9732ZUPIPOPNH C SCREENINGHEPATITIS C SCREENINGUniversity Hospitals Health Systemtart: 20-92-8552Npedqjoum C screeningHepatitis C ScreeningUniversity Hospitals Health Systemtart: 91-51-9647Dlqtcvkq screeningDiabetes: Retinopathy ScreeningMercy Hospital JoplinStart: 69-79-7674LFWMJ-19 VACCINE (#1)COVID-19 VACCINE (#1)[facility]: 57-40-4793Lahiwraxyh A1c measurementDiabetes: Hemoglobin M4XEPJRMercy Hospital Joplin Start: 98-79-6494Ajvjvgeld for malignant neoplasm of colonMercy Hospital Joplin Acetylcholine receptor blocking Ab/Acetylcholine Ab.total in SerumHolzer Medical Center – JacksonBacteria identified in Urine by CultureHolzer Medical Center – JacksonMONOCLONAL PROTEIN, SERUM (BLOOD)MONOCLONAL PROTEIN, SERUM (BLOOD) Lab Routine Anemia, unspecified type 10/01/2022 12:19 PM [facility] Work Phone: Muscle specific receptor tyrosine kinase Ab [Units/volume] in Serum by ImmunoassayHolzer Medical Center – JacksonPatient EducationSt. Elizabeth Hospital Ctr Work Phone: Patient referralSt. Elizabeth Hospital [facility]tr Work Phone: PROTEIN ELECTROPHORESIS SERUM W/INTERPPROTEIN ELECTROPHORESIS SERUM W/INTERP Lab Routine Anemia, unspecified type 10/01/2022 12:19 PM [facility] Work Phone: Renal function 1999 panel - Serum or PlasmaHolzer Medical Center – JacksonRenal function 1999 panel - Serum or [facility] DublinRenal function 1999 panel - Serum or [facility] DublinRenal function 1999 panel - Serum or [facility] DublinUS Kidney - bilateralHolzer Medical Center – Jackson Varicella zoster virus DNA [Presence] in Cerebral spinal fluid by DIPESH with probe detectionErlanger [facility]led[facility] Immunizations Immunization DateImmunizationNotesCare NwtkfmcgKbbxmvad90-04-6513laequoxvg virus vaccine, unspecified formulationVerónica Ugarte [phone]-XogemBellevue Hospital Ngghkw82-89-5705 influenza (HD-IIV4) vaccine, age 65+ yr, high dose, quadrivalent, PF (FLUZONE HIGH-DOSE)Daksha Bridges PA-C Work Phone: [facility] CenterGwymts86-24-9363sptawefjw virus vaccine, unspecified formulationNisa Shepherd [phone]-EshcfOhio State [facility] Hospital [facility]ive Pdyzln49-36-0813 influenza virus vaccine, unspecified formulationNisa Shepherd [phone]-GsvkzBellevue Hospital Gmxhzv83-70-2995 influenza, high-dose, quadrivalent vaccine (FLUZONE HIGH DOSE QUADRIVALENT)Henry Walker MD Work Phone: [facility] CenterGjbdbl08-07-8801qkxbrayuf virus vaccine, unspecified formulationNisa Shepherd [phone]-TbajkGerman Hospital11-11-2021 influenza, high-dose, quadrivalent vaccine (FLUZONE HIGH DOSE QUADRIVALENT)Henry Walker MD Work Phone: [facility] CenterJrbeqt74-86-4872PCET-JeZ-8 (COVID-19) mRNA BNT-162b2 Yoan Shepherd [phone]-GcevrBellevue Hospital HealthComment on above:Result Comment: 2022-09-18: PWO0975-73-7747YCIB-YkQ-3 (COVID-19) mRNA BNT- 162b2 Yoan Ruth [phone]-YoaivGerman Hospital03-01-2021 SARS-CoV-2 (COVID-19) mRNA BNT-162b2 Yoan Chatmanmetz [phone]-EktkoGerman Hospital10-01-2018 influenza nasal, unspecified formulationHenry Walker MD Work Phone: [facility] CenterDgvjtr69-48-9782mwydcryge virus vaccine, unspecified formulationNisa Shepherd [phone]-CvanqGerman Hospital10-01-2018 influenza, injectable, quadrivalent, preservative freeDaksha Bridges PA-C Work Phone: [facility] CenterLsyxuq78-48-1145gqvhhvgjiyhg polysaccharide vaccine, 23 valentBemesha Shepherd [phone]-CfhfxGerman Hospital11-03-2016 influenza virus vaccine, unspecified formulationNisa Shepherd [phone]-AayqeGerman Hospital11-03-2016 influenza, high dose seasonal, preservative-freeHenry Walker MD Work Phone: [facility] CenterExzexb85-03-3604bsadxirda virus vaccine, unspecified formulationNisa Shepherd [phone]-HkwmqBellevue Hospital Stboij92-50-0447 influenza, seasonal, Shamika Walker MD Work Phone: [facility] Payers DatePayer CategoryPayerPolicy [id number]-tfj [id number] [id number] 2024Medicare (Managed Care)[facility] [id number] Health InsuranceCENTRAL HARNETT HOSPITALO Member Subscriber Plan / Payer (Effective 2023-Present) Name: Anh Tejeda Member ID: [id number] Relation to Subscriber: Self Name: Anh Tejeda Subscriber ID: [id number] Payer ID: Not on file Group ID: Not on file Type: HMO Address: [address] [place] [id number] 2024Medicare [id number] [id number] 2.16.840.1.881149.3.579.2.56422-61-1229Plxjfzn7715449 2.16.840.1.950468.3.579.2.63147-31-9165Tanvuie7729461 2.16.840.1.791969.3.579.2.93024-64-8656Wldkfyy7391583 2.16.840.1.456991.3.579.2.72331-22-0418Vlhkqmc2495132 2.16.840.1.205111.3.579.2.29953-50-3456Ephtqxg2055714 2.16.840.1.221068.3.579.2.24403-16-9710Fscyxnt187618535 2.16.840.1.984370.3.579.2.5[id number] 2.16.840.1.910519.3.579.2.09087-86-2249Joxrccs49751231 2.16.840.1.484769.3.579.2.67455-50-8173Aaxptjk04304818 2.16.840.1.427914.3.579.2.23696-04-1692Tpftwtn19401279 2.16.840.1.411361.3.579.2.20155-36-3967Ybhqvdz383449328 2.16.840.1.649244.3.579.2.23873-47-2612Gtmytqm787977224 2.16.840.1.330413.3.579.2.75754-81-3330Gfekaxg230587521 2..1.332922.3.579.2.24632-03-2294Qkmwzqs36400238 2..1.854790.3.579.2.439459-35-8013Eutgsyy8610955 2..1.751083.3.579.2.723701-27-4265Wmxfivb3958442 2..1.257289.3.579.2.009558-30-8682Poyvcfx9400143 2..1.295424.3.579.2.542593-72-4306Fdebohd2830380 2..1.672779.3.579.2.263622-84-0719Vgvqbmf59569620 2..1.149586.3.579.2.80022-15-3586Nsbhrpy20099659 2..1.06[id number]/HFA/FAP [id number] 56c7617b-332k-687z-5fc8-kwpf0p8n2h95Iphxcrs24085690 2..1.189358.3.579.2.201Opdzjbr08242600 2..1.173771.3.579.2.531 Hujygtk13708711 2..1.355355.3.579.2.729Cplnhca88942656 2.16.840.1.739222.3.579.2.446Vigyjqc03071371 2.16.840.1.007980.3.579.2.531 Isxkueo67671165 2.16.840.1.992701.3.579.2.752Jrzxrec51887687 2.16.840.1.829295.3.579.2.376Fgajgdk19746734 2.16.840.1.945924.3.579.2.531 Wzojyfa63901955 2.16.840.1.688439.3.579.2.531 Social History DateTypeDetailFacilityStart: 12-26-2017 End: 83-18-8413Tkqwdvj smoking status NHISNever smoked tobacco (finding) [facility]trStart: 21-78-6481Iyc Assigned At [facility] HealthFeSelect [facility] - TrumbullTobacco smoking statusNeverOhio [facility] Start: 05-01-2023 End: 82-32-0910Cka Assigned At [facility] Start: 09-26-2022 End: 09-53-9256Ioyqvdj use and exposureSmokeless tobacco non-userUniversity Hospitals Health Systemtart: 15-77-6768Uclvgim intakeEx-drinker (finding)[facility] Systemtart: 46-85-8699Crq Assigned At BirthNot on fileUniversity Hospitals Elyria Medical CenterHistory of tobacco use Passive smokerUniversity Hospitals Health Systemtart: 10-01-2022 End: 66-36-4800Bzyluis intakeLifetime non-drinker (finding)[facility] Start: 09-21-2022 End: 60-28-0704Wyjmrsul to SARS-CoV-2 (event)Not sureUniversity Hospitals Health Systemtart: 05-01-2023 End: 75-60-9195Qwtbchp of Social functionUniversity Hospitals Health Systemtart: 03-29-2024 End: 65-79-0714Zlfkrouhj beverage intakeDeferNOMT HealthcareStart: 02-09-2024 Alcohol Commentcaffeine intake: 1-2 cups per dayNOMT HealthcareStart: 01-11-2024 Gender identityIdentifies as female gender (finding)[facility] HealthcareStart: 66-35-2783Asckay orientationChoose not to discloseNOMT HealthcareStart: 01-19-2022 End: 75-44-7516FagYmwogi (finding)[facility] Hospitalexual OrientationTrihealth Goals DatePatient GoalDesired Activity/State Functional Status ZmmyHurfvzcqdiDyfuybOdpiwvni11-22-7638Sprggxusdw StatusN/[facility] Hemxgi89-64-7080Zdhybdkqtb StatusN/[facility] Mqhpnc46-20-4718Lcilthprmx statusPatient at BaselineAv[facility] Work Phone: 1(328) 538-142209826633-17-1251Nvwbhleehs statusPatient at Baseline [facility] Work Phone: 1(682) 857-140005398860-43-4790Gsbtiigpbm StatusN/[facility] Pgukqi27-70-4257Wbtlpmlouv StatusN/[facility] Mzcmeq96-68-6229Rjaveggbfo StatusN/[facility] Adidrg31-35-5856Bycgbmvhog statusPatient at BaselineAv[facility] Work Phone: 1(267) 871-580104401861-45-3496Pvpoqkujpe statusDisability Status Patient at BaselineAv[facility] Work Phone: 1(580) 264-872502330502-73-0637Addjbuaczz StatusN/[facility] Ytspms75-29-1890Wkoahkuvqv StatusNoTrihealth07-28-2022Functional StatusN/[facility] Mental Status JfcrHcpinrayriIvgqidHgpudxkc83-58-9179Thmbnbtij functionCognitive Status Patient at BaselineAv[facility] Work Phone: 1(336) 757-271309-808038-83-6127Tpcvmwurr functionCognitive Status Patient at BaselineAv[facility] Work Phone: 1(472) 789-713404-727097-36-7216Hxdgxktei functionCognitive Status Patient at BaselineSt. [facility] Work Phone: Clinical Notes 06-12-2022 to 08-07-2025 Note Date & TraqBhnpFmukuavz92-04-3095 NoteHNO ID: [id number] Author: DAKSHA BRIDGES PA-C Service: ? Author Type: Physician Systems Development Consultant Type: Progress Notes Filed: 08/07/2025 10:50 Note Text: Hematology Progress Note PATIENT NAME: Anh Tejeda CLINIC NO.: [id number] ATTENDING PHYSICIAN: Henry Walker MD DATE OF [...] 5.85 3.70 - 11. (more content not included)...[facility]08-20-[facility] Evaluation note* Diagnosis Onset Date Resolution Status Admit Date Anemia of renal disease acuteJuly 05, 2025 9:42amChronic kidney disease, stage III (moderate)acute July 05, 2025 9:42amHyperlipidemiaacuteAugust 2024 9:42am HypomagnesemiaacuteAugust 2024 9:42amSecondary hyperparathyroidismacute July 05, 2025 9:42amType 2 diabetes mellitus with diabetic chronic kidney diseaseacuteAugus2024 9:42amHypertensive chronic kidney disease with stage 1 through stage 4 chronic kichronicAugust 2024 9:42am [facility] Work Phone: 1(817) 446-151908-20-2025 Evaluation note* Diagnosis Onset Date Resolution Status [...] acuteSept2024 9:10amLacunar infarctionacuteSept2024 9:10am PolyneuropathyacuteSept2024 9:10amSyncopeacuteSept2024 9:10am [facility] Work Phone: 1(832) 301-285007-23-2025 History of Present illness Narrative* Jenny Watson [...] family situations. Patient indicated understanding. I did funeral prearrangement counselor the patient and her brother on processing and getting patient's attention before talking to her. She will continue as needed. Cosigned by BETH Hodgson at 06/08/2025 11:43 AM EDT documented in this encounterMercy Hospital JoplinJeqvqimlat67-29-2060 History of Present illness Narrative* Daksha Bridges PA-C - 04/25/2025 11:00 AM EDT Hematology Progress Note PATIENT NAME: Anh Tejeda [facility] NO.: [id number] ATTENDING PHYSICIAN: Henry Walker MD DATE OF [...] Range Status 04/18/2025 6.4 % Final Abs [place] Date Value Ref Range Status 04/18/2025 0.36 [...] monitoring of renal function. - Follow-up with plumber supervisor Dr. Giles in June. 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 Should this worsen, especially in the setting of anemia with normal iron stores, would need to consider further workup. Platelets pek725 4. Polyneuropathy: negative SPEP/MPA in 2021. Some improvement with carpal tunnel repair. Return in 3 months with repeat labs Daksha Bridges PA-C CC: Nisa Shepherd CNP I spent a total of 20 minutes on the date of the service which included preparing to see the patient, ddaf-zp-wdda patient care, completing clinical documentation, performing a medically appropriate examination, counseling and educating the patient/family/caregiver, ordering medications, tests, or p rocedures, independently interpreting results (not separately reported), communicating results to the patient/family/caregiver, and care coordination (not separately reported). documented in this encounterUniversity Hospitals Elyria Medical Center06-10-2025 NoteHNO ID: [id number] Author: DAKSHA BRIDGES PA-C Service: ? Author Type: Physician Systems Development Consultant Type: Progress Notes Filed: 04/25/2025 11:19 Note Text: Hematology Progress Note PATIENT NAME: Anh Tejeda [facility] NO.: [id number] ATTENDING PHYSICIAN: Henry Walker MD DATE OF [...] (mmol/L) Date Value 04/18/20 (more content not included)...[facility]-27-[facility] Telephone encounter Note* Telephone Encounter - Stacey Estrada - 04/11/2025 9:59 AM EDT Spoke to Anh, labs 04/18 at 1130 and follow up 04/25 at 11am. [facility] [facility]25 Miscellaneous Notes* Telephone Encounter - Stacey Estrada [...] below. Samantha Mcmahan RN documented in this encounterUniversity Hospitals Elyria Medical Center05-27-2025 Telephone encounter Note * Telephone Encounter - Samantha Mcmahan RN - 04/11/2025 9:52 AM EDT Daksha wants labs in the next 1-2 weeks and follow up 1 week after they are drawn to review results. Samantha Mcmahan RN [facility]05-27-2025 Telephone encounter Note* Telephone Encounter - Stacey Estrada - 04/11/2025 9:47 AM EDT Patient is scheduled for 06/28 now, is that ok or does she need moved up? [facility]05-27-2025 Telephone encounter Note* Telephone Encounter - Samantha Mcmahan RN - 04/11/2025 9:15 AM EDT Pt aware and agreeable to plan of care. She denies questions, needs or concerns at this time. PSS: Please call to schedule labs /follow up per MM below. Samantha Mcmahan RN [facility]05-23-2025 NoteHNO ID: [id number] Author: DAKSHA BRIDGES PA-C Service: ? Author Type: Physician Systems Development Consultant Type: Progress Notes Filed: 04/07/2025 14:52 Note Text: Hematology Progress Note PATIENT NAME: Anh [facility] NO.: [id number] ATTENDING PHYSICIAN: Henry Walker MD DATE OF [...] 1 General: Alert and (more content not included)...[facility] 03-06-2025 History of Present illness Narrative* [...] is more in her thumbs -trouble with assembler molded frames -Takes Gabapentin POLYNEUROPATHY -on Requip and Gabapentin [...] out -she had MRI L spine at [facility] in January -she admits numbness and tingling [...] at the great toe bilaterally. Coordination Right: Rroctp-cy-kfen normal. Rapid alternating movement normal.Left: Cslddr-nd-escm normal. Rapid alternating movement normal. Gait Casual gait is normal including stance, stride, and arm swing. Ambulaters with a cane. Able to rise from the chair without usinh her arms. Motor Examination RUE Strength deltoid, biceps, triceps, wrist extensors, wrist extensors, wrist flexor, assembler molded frames strength 5/5. LUE Strength deltoid, biceps, triceps, wrist extensors, wrist extensors, wrist flexor, assembler molded frames strength 5/5. RLE Strength illopsoas, quadriceps, tibialis anterior, and gastrocnemius strength 5/5. LLE Strength illopsoas, quadriceps, tibialis anterior, and gastrocnemius strength 5/5. Tone Normal tone x4 extremities. Reflexes: RUE biceps reflex 2, brachioradialis reflex 2 LUE biceps reflex 2, brachioradialis reflex 2 RLE knee reflex 1 LLE knee reflex 1, Assessment and Plan 1. TIA - presented to [facility] on 07/21/2024 with fatigue and slurred speech. Stroke risk factors includes age, hyperlipidemia, hypertension, diabetes mellitus type 2, COLTEN and prior stroke seen on MRI. She presented with fluctuating fatigue, weakness and speech issues which was related to the initiation of Farxiga, per family. She was found to have CRESECNIO and hypomagnesemia which may have contributed aswell. CT scan of the head that showed remote lacunar infarct of the left frontal periventricular white matter. MRI brain was unremarkable. She denies focal weakness. She has chronic diplopia. She hasmal fitting dentures that affects the clarity of her speech. No new signs or symptoms of stroke. 2. Syncope - R55 - Patient was seen at [facility] 03/11/2023 for syncopal episode and slurred speech [...] leak. She isfollowing with sleep specialist at [facility]. Evaluation at [facility] on 07/21/2024: 1. CBC showed mild anemia [...] up in 4 months documented in this encounterMercy Hospital [id number] Telephone encounter Note* Telephone Encounter - Samantha Mcmahan RN - 01/09/2025 9:11 AM EST Pt informed of MM message, once verified, using 2 patient identifiers. Patient denies any questions, needs or concerns at this time. Appointment verified. Samantha Mcmahan RN [facility]02-24-2025 Miscellaneous Notes* Telephone Encounter - Samantha Mcmahan RN - 01/09/2025 9:11 AM EST Pt informed of MM message, once verified, using 2 patient identifiers. Patient denies any questions, needs or concerns at this time. Appointment verified. Samantha Mcmahan RN documented in this encounterUniversity Hospitals Elyria Medical Center02-21-2025 NoteHNO ID: [id number] Author: DAKSHA BRIDGES PA-C Service: ? Author Type: Physician Systems Development Consultant Type: Progress Notes Filed: 01/06/2025 14:38 Note Text: Hematology Progress Note PATIENT NAME: Anh Tejeda [facility] NO.: [id number] ATTENDING PHYSICIAN: Henry Walker MD DATE OF [...] Sodium (mmol/L) Date Value (more content not included)...[facility]02-21-2025 History of Present illness Narrative* Daksha Bridges PA-C - 01/06/2025 2:18 PM EST Hematology Progress Note PATIENT NAME: Anh [facility] NO.: [id number] ATTENDING PHYSICIAN: Henry Walker MD DATE OF [...] Range Status 01/06/2025 5.9 % Final Abs [place]bridge Date Value Ref Range Status 01/06/2025 0.32 [...] which included preparing to see the patient, qjwu-ai-mcaz patient care, completing clinical documentation, performing a medically appropriate examination, counseling and educating the patient/family/caregiver, ordering medications, tests, or p rocedures, independently interpreting results (not separately reported), communicating results to the patient/family/caregiver, and care coordination (not separately reported). documented in this encounterUniversity Hospitals Elyria Medical Center02-17-2025 Telephone encounter Note * Telephone Encounter - Verenice Andres MA - 01/02/2025 2:52 PM EST Lab orders needed for upcoming appointment scheduled 01/06. Verenice Andres MA [facility]02-17-2025 Miscellaneous Notes* Telephone Encounter - Verenice Andres MA - 01/02/2025 2:52 PM EST Lab orders needed for upcoming appointment scheduled 01/06. Verenice Andres MA documented in this encounterUniversity Hospitals Elyria Medical Center2024 Evaluation note* Diagnosis Onset Date Resolution Status Admit Date Essential (primary) hypertension acutecemb2023 12:57pmInsomniaacuteDecember 2023 12:57pm Obstructive sleep apneaacuteNovember 14, 2024 12:57pmRestless leg syndrome acuteNovember 14, 2024 12:57pmType 2 diabetes mellitus with diabetic chronic kidney diseaseacuteNovember 14, 2024 12:57pm [facility] Work Phone: 1(384) 892-702012-30-2024 Evaluation note* Diagnosis Onset Date Resolution Status [...] with diabetic chronic kidney diseaseacuteFebruary 2024 2:15pm [facility] Work Phone: 1(184) 422-652512-30-2024 Evaluation note* Diagnosis Onset Date Resolution Status [...] through stage 4 chronic kiinactiveFebruary 2024 2:15pm [facility] Work Phone: 1(106) 293-139111-25-2024 Telephone encounter Note* Telephone Encounter - Samantha Mcmahan RN - 10/10/2024 12:34 PM EST Pt informed of MM message, once verified, using 2 patient identifiers. Patient denies any questions, needs or concerns at this time. Appointment verified. Samantha Mcmahan RN [facility]11-25-2024 Miscellaneous Notes* Telephone Encounter - Samantha Mcmahan RN - 10/10/2024 12:34 PM EST Pt informed of MM message, once verified, using 2 patient identifiers. Patient denies any questions, needs or concerns at this time. Appointment verified. Samantha Mcmahan, RN * Telephone Encounter - Daksha Bridges PA-C - 10/10/2024 11:45 AM EST Please call with normal iron levels Daksha Bridges PA-C documented in this encounterUniversity Hospitals Elyria Medical Center11-25-2024 Telephone encounter Note * Telephone Encounter - Daksha Bridges PA-C - 10/10/2024 11:45 AM EST Please call with normal iron levels Daksha Bridges PA-C [facility]11-22-2024 History of Present illness Narrative* Daksha Bridges PA-C - 10/07/2024 2:30 PM EST Hematology Progress Note PATIENT NAME: Anh Tejeda [facility] NO.: [id number] ATTENDING PHYSICIAN: Henry Walker MD DATE OF [...] Range Status 10/07/2024 5.4 % Final Abs Rockbridge Date Value Ref Range Status 10/07/2024 0.28 [...] are pending. Repeat labs and follow up [id number]. Chronic kidney disease stage 3b--likely secondary to [...] which included preparing to see the patient, cqxu-jp-ulkg patient care, completing clinical documentation, performing a medically appropriate examination, counseling and educating the patient/family/caregiver, ordering medications, tests, or p rocedures, independently interpreting results (not separately reported), communicating results to the patient/family/caregiver, and care coordination (not separately reported). documented in this encounterUniversity Hospitals Elyria Medical Center11-22-2024 NoteHNO ID: [id number] Author: DAKSHA BRIDGES PA-C Service: ? Author Type: Physician Systems Development Consultant Type: Progress Notes Filed: 10/07/2024 14:56 Note Text: Hematology Progress Note PATIENT NAME: Anh Tejeda [facility] NO.: [id number] ATTENDING PHYSICIAN: Henry Walker MD DATE OF [...] CO2 (mmol/L) Date Value (more content not included)...[facility]11-20-20[facility] History of Present illness Narrative* Jenny [...] 10/18/2024 9:35 AM EST documented in this encounterMercy Hospital [id number] Progress note Author Ottoniel Bland [facility] July 22, 2024 2:19pmNote Date/TimeSept2023 2:18pm[place] [address] Neurology Progress Note Signed Patient: Anh Tejeda MR#: [id number] : 1950 Acct:[id number] Age/Sex: 73 / F Adm Date: 4 Loc: 3T Room: [address] [place] [address] Type: ADM INOo Attending Dr: Comfort Monteiro [...] <Electronically signed by Ottoniel Bland DO> 07/22/24 [facility]9 [facility] Work Phone: 1(910) 104-247009-06-2024 Discharge summary Author Comfort Monteiro [facility] July 22, 2024 1:39pmNote Date/TimeSept2023 1:26pmAugust[place] [address] Discharge Summary Signed Patient: Anh Tejeda MR#: [id number] : 1950 Acct:[id number] Age/Sex: 73 / F Adm Date: 4 Loc: 3T Room: [address] [place] [address]: Comfort Monteiro MD Copies to: [...] Neut % (Auto) 60.0, Lymph % (Auto)31.4, [place]bridge % (Auto) 5.5, Eos % (Auto) 2.7, Baso % (Auto) 0.4, Nucleat RBC Rel Count 0.1, Neut # (Auto) 3.3, Lymph # (Auto) 1.7, [place]bridge # (Auto) 0.3, Eos # (Auto) 0.1, [...] <Electronically signed by Comfort Monteiro MD> 07/22/24 [facility] Work Phone: 1(106) 878-375909-05-2024 Consult note Author Ottoniel Bland [facility] July 21, 2024 4:56pmNote Date/TimeSept2023 3:59pmAugusta[place] [address] Neurology Consult Note Signed Patient: Anh Tejeda MR#: [id number] : 1950 Acct:[id number] Age/Sex: 73 / F Adm Date: 4 Loc: Room: [address] [place] [address] Type: ADM INOo Attending Dr: Comfort Monteiro MD Copies to: DO Vinay Mckeon DO Obaydah M Daromar, MD~ HPI Consult Date: 07/21/24 Dispatcher Motor Vehicle: Ottoniel Bland DO [facility] Medical History COVID-19 Acute bronchitis CRESENCIO (acute [...] Riki Garnica M.D.07/21/2024 12:02 PM [facility] 07/21/24 10:06 IMPRESSION: No acute intracranial pathology. 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 Impression dictated by: Riki Garnica M.D.07/21/2024 10:57 AM Dictation Location: [place] [address] Assessment/Plan (1) Slurred speech: Plan CONSULT REASON: [...] <Electronically signed by Ottoniel Bland DO> 07/21/24 8343 [facility] Work Phone: 1(818) 809-703309-05-2024 History and physical note Author Comfort Monteiro [facility] July 21, 2024 3:26pmNote Date/TimeSept2023 12:40pmAugusta[place] [address] Hospitalist H&P Signed Patient: Anh Tejeda MR#: [id number] : 1950 Acct:[id number] Age/Sex: 73 / F Adm Date: 4 Loc: Room: [address] [place] [address] Type: ADM INOo Attending Dr: Comfort Monteiro [...] except as mentioned elsewhere in the documentation [facility] Medical History COVID-19 Acute bronchitis CRESENCIO (acute [...] % (Auto) 24.6 % (.) 07/21/24 10:25 Rockbridge % (Auto) 4.0 % (.) 07/21/24 10:25 Eos % (Auto) 2.5 % (.) 07/21/24 10:25 Baso % (Auto) 0.7 % (.) 07/21/24 10:25 Nucleat RBC Rel Count 0.0 /100 WBC (0-0.5) 07/21/24 10:25 Neut # (Auto) 3.3 x10E3/uL (1.8-7.7) 07/21/24 10:25 Lymph # (Auto) 1.2 x10E3/uL (1.00-4.8) 07/21/24 10:25 Rockbridge # (Auto) 0.2 x10E3/uL (0.0-0.8) 07/21/24 10:25 [...] pH 6.0 (5.0-9.0) 07/21/24 11:48 Ur Specific [place] 1.018 (1.001-1.030) 07/21/24 11:48 Urine Protein Negative [...] -Check MRI brain -PT/OT eval and treat -INFORMATICA DEVELOPER evaluation -Will keep hydralazine, labetalol IV as [...] <Electronically signed by Comfort Monteiro MD> 07/21/[address] [place] [address] Work Phone: 1(820) 721-449509-03-2024 Telephone encounter Note* Telephone Encounter - Samantha Mcmahan RN - 07/19/2024 12:48 PM EDT Pt informed of MM message and denies any questions, needs or concerns at this time. Appointment verified. Samantha Mcmahan RN [facility]09-03-2024 Miscellaneous Notes* Telephone Encounter - Samantha Mcmahan RN - 07/19/2024 12:48 PM EDT Pt informed of MM message and denies any questions, needs or concerns at this time. Appointment verified. Samantha Mcmahan, RN * Telephone Encounter - Daksha Bridges PA-C - 07/19/2024 12:36 PM EDT Please inform patient that she does not need iron at this time Daksha Bridges PA-C documented in this encounterUniversity Hospitals Elyria Medical Center09-03-2024 Telephone encounter Note * Telephone Encounter - Daksha Bridges PA-C - 07/19/2024 12:36 PM EDT Please inform patient that she does not need iron at this time Daksha Bridges PA-C [facility]08-30-2024 History of Present illness Narrative* Daksha Bridges PA-C - 07/15/2024 2:30 PM EDT Hematology Progress Note PATIENT NAME: Anh Tejeda [facility] NO.: [id number] ATTENDING PHYSICIAN: Henry Walker MD DATE OF [...] Range Status 07/15/2024 5.0 % Final Abs [place]bridge Date Value Ref Range Status 07/15/2024 0.37 [...] which included preparing to see the patient, padd-ov-etbg patient care, completing clinical documentation, performing a medically appropriate examination, counseling and educating the patient/family/caregiver, ordering medications, tests, or p rocedures, independently interpreting results (not separately reported), communicating results to the patient/family/caregiver, and care coordination (not separately reported). documented in this encounterUniversity Hospitals Elyria Medical Center06-05-2024 Telephone encounter Note * Telephone Encounter - Samantha Mcmahan RN - 04/20/2024 1:48 PM EDT Pt aware and denies any questions, needs or concerns at this time. Samantha Mcmahan RN [facility]06-05-2024 Miscellaneous Notes* Telephone Encounter - Samantha Mcmahan [...] time Samantha Mcmahan RN documented in this encounterUniversity Hospitals Elyria Medical Center06-05-2024 Telephone encounter Note * Telephone Encounter - Daksha Bridges PA-C - 04/20/2024 1:20 PM EDT Iron levels look good Daksha Bridges PA-C [facility]06-05-2024 Telephone encounter Note* Telephone Encounter - Samantha Mcmahan RN - 04/20/2024 11:58 AM EDT Pt called to request Iron lab results. MM: please verify no needs at this time Samantha Mcmahan RN [facility]05-31-2024 Instructions* Patient Instructions* Shana Flores APRN.CNP - 04/15/2024 2:27 PM EDT Please call the office with questions or concerns. Report symptoms of worsening iron-deficiency anemia like short of breath, headaches, ice cravings, worsening fatigue, dizziness, or light-headedness. documented in this encounterUniversity Hospitals Elyria Medical Center05-31-2024 History of Present illness Narrative* Shana Flores APRN.CNP - 04/15/2024 2:09 PM EDT Hematology Progress Note PATIENT NAME: Anh Tejeda [facility] NO.: [id number] ATTENDING PHYSICIAN: Henry Walker MD DATE OF [...] mg was 02/11/24. Will be seeing a plumber supervisor in the next couple of weeks for [...] Range Status 04/15/2024 4.7 % Final Abs [place] Date Value Ref Range Status 04/15/2024 0.31 [...] SPEP/MPA. Shana Flores APRN.JENY Hematology/Oncology [place]/ [facility] [phone] CC: Nisa Shepherd CNP documented in this encounterUniversity Hospitals Elyria Medical Center03-25-2024 History of Present illness Narrative* Renetta Johnson LSW - 02/08/2024 11:41 AM EDT Patient appears on the [facility] First Time Treatment List for a non-oncology treatment. No psychosocial assessment is indicated. ALIA Bean documented in this encounterUniversity Hospitals Elyria Medical Center03-18-2024 Miscellaneous Notes* Telephone Encounter - Colette Carbajal [...] if she would like. documented in this encounterUniversity Hospitals Elyria Medical Center03-15-2024 Miscellaneous Notes* Telephone Encounter - Samantha Mcmahan RN - 01/29/2024 1:15 PM EDT Pt called to inform MM her blood sugar is down to 198. Instructed to keep a record and notify PCPChristopheray for an appt to manage. She is agreeable and will call. Samantha Mcmahan RN documented in this encounterUniversity Hospitals Elyria Medical Center03-15-2024 History of Present illness Narrative* Daksha Bridges PA-C - 01/29/2024 10:30 AM EDT PATIENT NAME: Anh [facility] NO.: [id number] ATTENDING PHYSICIAN: Henry Walker MD DATE OF [...] to sleep. Going on a trip to [place] for week. Current Outpatient Medications Medication Sig [...] Range Status 01/29/2024 3.5 % Final Abs [place]bridge Date Value Ref Range Status 01/29/2024 0.21 [...] which included preparing to see the patient, oqvl-zz-ducb patient care, completing clinical documentation, obtaining and/or reviewing separately obtained history, performing a medically appropriate examination, counseling and educating the pat ient/family/caregiver, ordering medications, tests, or procedures, and communicating results to thepatient/family/caregiver. documented in this encounterUniversity Hospitals Elyria Medical Center01-22-2024 Hospital Discharge instructions Patient Education 12/07/2023 09:08:45 [...] spleen. Follow these instructions at home: Take mwrz-pis-tpbxycw and prescription medicines only as told by [...] provider. Document Revised: 01/26/2023 Document Reviewed: 01/26/2023 [employer] Patient Education 2022 5app. Follow Up Care 11/12/2023 09:08:30 With:Nisa Shepherd CNP Address: When:3 months [facility] [id number] Miscellaneous Notes* Telephone Encounter - Samantha Mcmahan [...] with normal iron levels documented in this encounterUniversity Hospitals Elyria Medical Center12-05-2023 Evaluation note* Encounter Date Diagnosis Assessment Notes [...] fit. A prescription was sent to the [employer] [facility] [employer] for new supplies throughout the year. She [...] have anemia, she is currently seeing a cell biology scientist and has needed some blood transfusion. They are currently managing this and she may need to see a plumber supervisor for kidney issues. Discussed c pt that [...] in a timely fashion. Do not smoke [employer] Other 09-11-2023 Miscellaneous Notes* Telephone Encounter - Samantha Mcmahan RN - 07/27/2023 10:25 AM EDT Pt aware of MM message. She denies any questions or concerns at this time Samantha Mcmahan RN * Telephone Encounter - Samantha Mcmahan RN - 07/27/2023 10:24 AM EDT ----- Message from Daksha Bridgse PA-C sent at 07/27/2023 8:07 AM EDT ----- Please call with normal iron studies documented in this encounterUniversity Hospitals Elyria Medical Center09-08-2023 Miscellaneous Notes* Telephone Encounter - Valentina Diaz [...] sooner. Daksha Bridges PA-C documented in this encounterUniversity Hospitals Elyria Medical Center09-08-2023 Nurse Note* Beverly Reza MA - 07/24/2023 2:01 PM EDT Patient states that she has been very tired but her neuropathy have been bothering her. Beverly Marcus MA documented in this encounterUniversity Hospitals Elyria Medical Center09-08-2023 History of Present illness Narrative* Daksha Bridges PA-C - 07/24/2023 2:00 PM EDT PATIENT NAME: Anh [facility] NO.: [id number] ATTENDING PHYSICIAN: Henry Walker MD DATE OF [...] Range Status 07/24/2023 5.9 % Final Abs [place] Date Value Ref Range Status 07/24/2023 0.39 [...] CC: Nisa Shepherd CNP documented in this encounterUniversity Hospitals Elyria Medical Center06-19-2023 Miscellaneous Notes* Telephone Encounter - Karlie Vallejo [...] does not need iron. documented in this encounterUniversity Hospitals Elyria Medical Center06-16-2023 History of Present illness Narrative* Daksha Bridges PA-C - 05/01/2023 2:00 PM EDT PATIENT NAME: Anh [facility] NO.: [id number] ATTENDING PHYSICIAN: Henry Walker MD DATE OF [...] last visit she did have admission to [facility] in February 2023for syncope and UTI. She [...] a colonoscopy a few weeks ago at [facility]. I do not have any of these [...] Range Status 05/01/2023 6.0 % Final Abs Rockbridge Date Value Ref Range Status 05/01/2023 0.44 [...] in 3 months. Will request records from [facility] colonoscopy as well. Chronic kidney disease stage 3b--likely secondary to diabetes. Referral to nephrology recommended and she wishes to discuss to PCP Daksha Bridges PA-C CC: Nisa Shepherd CNP documented in this encounterUniversity Hospitals Elyria Medical Center04-27-2023 Consult note Author Krissy Easton [facility] March 12, 2023 5:33pmNote Date/TimeApril 2022 11:16[place] [address] Neurology Consult Note Signed Patient: Anh Tejeda MR#: [id number] : 1950 Acct:[id number] Age/Sex: 72 / F Adm Date: 3 Loc: Room: [address] [place] [address] Type: ADM IN Attending Dr: Kimberly Arteaga MD Copies to: DO Queta Rubio ANP-C Mazhar Rahman, MD Nicole J Danner,~ HPI Consult Date: 03/12/23 Dispatcher Motor Vehicle: ISAMAR Amato with Dr. Easton Reason for [...] and ulnar nerve compression CEREBELLAR EXAM: * Zmkpfn-kk-dxsi and alternating movements are intact and normal in bilateral upper extremities * Dfhv-rm-jcng and alternating movements are intact and normal in lower extremities. She has difficulty with ized-jn-pvej using the right lower extremity due to [...] of dysmetria with good rapid alternating movements uspoks-qm-okuj Tone is physiologic Deep tendon reflexes are [...] care and confirmed this with the Fellow/Nurse Practitioner/Resident/Developer Advisor/Physician Systems Development Consultant as noted below. 72 year old female [...] <Electronically signed by DENISE Prieto> 03/12/23 1156 [facility] Work Phone: 1(256) 908-428304-27-2023 Progress note Author Kimberly Arteaga [facility] March 12, 2023 4:35pmNote Date/TimeApril 2022 4:32pm[place] [address] Hospitalist Progress Note Signed Patient: Anh Tejeda MR#: [id number] : 1950 Acct:[id number] Age/Sex: 72 / F Adm Date: 3 Loc: Room: [address] [place] [address] Type: ADM IN Attending Dr: Kimberly Arteaga [...] signed by Kimberly Arteaga MD> 03/12/23 1635 [facility] Work Phone: 1(535) 208-235704-26-2023 History and physical note Author Kimberly Arteaga [facility] March 11, 2023 7:01pmNote Date/TimeApril 2022 6:46pmAugust[place] [address] Hospitalist H&P Signed with Addenda Patient: Anh Tejeda MR#: [id number] : 1950 Acct:[id number] Age/Sex: 72 / F Adm Date: 3 Loc: Room: [address] [place] [address] Type: ADM IN Attending Dr: Kimberly Arteaga [...] negative unless noted below or in HPI [facility] Vacc[facility] for [facility]-19?: Yes Medical History (Updated [...] % (Auto) 24.2 % (.) 03/11/23 15:41 [place] % (Auto) 6.1 % (.) 03/11/23 15:41 Eos % (Auto) 1.4 % (.) 03/11/23 15:41 Baso % (Auto) 0.4 % (.) 03/11/23 15:41 Nucleat RBC Rel Count 0.1 /100 WBC (0-0.5) 03/11/23 15:41 Neut # (Auto) 3.9 x10E3/uL (1.8-7.7) 03/11/23 15:41 Lymph # (Auto) 1.4 x10E3/uL (1.00-4.8) 03/11/23 15:41 [place] # (Auto) 0.3 x10E3/uL (0.0-0.8) 03/11/23 15:41 [...] pH 5.0 (5.0-9.0) 03/11/23 16:48 Ur Specific [place] 1.020 (1.001-1.030) 03/11/23 16:48 Urine Protein Negative [...] stroke. Documented By: Kimberly Arteaga MD 03/11/23 7112 Signed By: <Electronically signed by Kimberly Arteaga MD> 03/11/23 1856 [facility] Work Phone: 1(245) 326-508103-27-2023 Miscellaneous Notes* Telephone Encounter - Sonia Rg [...] with normal iron labs documented in this encounterUniversity Hospitals [facility]03-24-2023 History of Present illness Narrative* Daksha Bridges PA-C - 02/06/2023 2:30 PM EDT PATIENT NAME: Anh [facility] NO.: [id number] ATTENDING PHYSICIAN: Henry Walker MD DATE OF [...] Range Status 02/06/2023 5.7 % Final Abs [place] Date Value Ref Range Status 02/06/2023 0.37 [...] CC: Nisa Shepherd CNP documented in this encounterUniversity Hospitals Ely[facility] Center02-08-2023 Hospital Discharge instructions Patient Education 12/24/2022 10:32:42 [...] powder, vinegar, hot sauces, and barbecue sauce. ?[place] fruit juices and citrus fruits, such as oranges, myron, and limes. ?Tomato-based foods, such as red sauce, chili, salsa, and pizza with red sauce. ?Fried and fatty foods, such as donuts, ecuadorean fries, potato chips, and high-fat dressings. ?High-fat [...] to any changes in your symptoms. Take eajk-lxq-jnjogtm and prescription medicines only as told by [...] you have new or worsening symptoms. Take ksrh-dew-gxhrgzr and prescription medicines only as told by [...] 08/12/2006 Document Revised: 05/11/2019 Document Reviewed: 05/11/2019 [employer] Patient Education 2020 5app. 12/24/2022 10:15:21 Gastroesophageal Reflux Disease, Adult Gastroesophageal [...] powder, vinegar, hot sauces, and barbecue sauce. ?[place] fruit juices and citrus fruits, such as oranges, myron, and limes. ?Tomato-based foods, such as red sauce, chili, salsa, and pizza with red sauce. ?Fried and fatty foods, such as donuts, ecuadorean fries, potato chips, and high-fat dressings. ?High-fat [...] to any changes in your symptoms. Take mahd-dkx-gnxhbhl and prescription medicines only as told by [...] you have new or worsening symptoms. Take zhgv-jtb-tvyeuqf and prescription medicines only as told by [...] 08/12/2006 Document Revised: 05/11/2019 Document Reviewed: 05/11/2019 [employer] Patient Education 2020 5app. Follow Up Care 09/19/2022 13:04:08 With:Nisa Shepherd CNP Address: When:3 months [facility] 01-30-2023 Miscellaneous Notes* Telephone [...] Keep appointments as scheduled documented in this encounterUniversity Hospitals Elyria [facility] Center01-27-2023 History of Present illness Narrative* Daksha Bridges PA-C - 12/12/2022 3:00 PM EST PATIENT NAME: Anh [facility] NO.: [id number] ATTENDING PHYSICIAN: Henry Walker MD DATE OF [...] 12/12/2022 1.24 1.00 - 4.00 k/uL Final [place]% Date Value Ref Range Status 12/12/2022 5.0 % Final Abs [place] Date Value Ref Range Status 12/12/2022 0.28 [...] CC: Nisa Shepherd CNP documented in this encounterUniversity Hospitals Elyria Medical Center12-07-2022 History of Present illness Narrative* MAGUE Bean - 10/22/2022 9:46 AM EST Patient appears on the [facility] First Time Treatment List for a non-oncology treatment. No psychosocial assessment is indicated. ALIA Bean documented in this encounterUniversity Hospitals Elyria Medical Center12-01-2022 History of Present illness Narrative* Daksha Bridges PA-C - 10/16/2022 10:30 AM EST PATIENT NAME: Anh Nikhil [facility] NO.: [id number] ATTENDING PHYSICIAN: Henry Walker MD DATE OF [...] 10/01/2022 1.07 1.00 - 4.00 k/uL Final [place]% Date Value Ref Range Status 10/01/2022 4.6 % Final Abs [place] Date Value Ref Range Status 10/01/2022 0.25 [...] CC: Nisa Shepherd CNP documented in this encounterUniversity Hospitals Elyria Medical Center11-30-2022 Miscellaneous Notes* Telephone Encounter - Haley Milligan - 10/15/2022 10:08 AM EST Patient on 1st time treatment report-non oncology regimen (venofer) Patient holds medicare coverageand no FA available for this treatment. documented in this encounterUniversity Hospitals Elyria Medical Center11-29-2022 Evaluation note* Encounter Date Diagnosis Assessment Notes Treatment Notes Treatment Clinical Notes Sep, Obstructive sleep apnea (ICD-10 - G47.33) Fortunately, the patient is using and benefiting from treatment. Download was reviewed with patient, Current pressure is controlling apnea well, And we will make no changes at this time. A prescription was sent to the [employer] for new supplies throughout the year. She [...] in a timely fashion. Do not smoke [employer] Other 11-25-2022 History of Present illness Narrative* MAGUE Bean - 10/10/2022 9:09 AM EST Patient appears on the First Time Treatment List for a non-oncology treatment. No psychosocial assessment is indicated. Renetta Alex, EXPLOSIVE SPECIALIST-S documented in this encounterUniversity Hospitals Elyria Medical Center11-21-2022 Miscellaneous Notes* Telephone Encounter - Colette Carbajal [...] us arranging for it documented in this encounterUniversity Hospitals Elyria Medical Center11-16-2022 History of Present illness Narrative* Henry Walker MD - 10/01/2022 11:47 AM EST PATIENT NAME: Anh [facility] NO.: [id number] ATTENDING PHYSICIAN: Henry Walker MD DATE OF [...] Henry Walker M.D. Hematology/Medical Oncology [facility] [phone] CC: Nisa Shepherd, CUST[employer]S BROKERAGE AGENT documented in this encounterUniversity Hospitals Elyria Medical Center10-18-2022 Evaluation + Plan note Future Scheduled Tests Laboratory* B-Type Natriuretic Peptide 09/02/22 * TIBC Calculated 04/23/22 * Ferritin 04/23/22 * Folate Level 04/23/22 * Hepatic Function Panel 04/23/22 * Iron Level 04/23/22 * Magnesium Level 02/04/23 * Reticulocyte Count 04/23/22 * Vitamin B12 Level 04/23/22 [facility]07-28-2022 Hospital Discharge instructions Patient Education 06/12/2022 09:13:55 [...] unsweetened, w/added ascorbic acid 1 cup 0.5 [place] 1 cup 0.7 Vegetables Cooked Green beans 1 cup 4.0 Carrots 1/2 cup sliced 2.3 Peas 1 cup 8.8 Potato (baked, with skin) 1 medium potato 3.8 Raw [place] (with peel) 1 cucumber 1.5 Lettuce 1 [...] 8.7 Peanuts 1/2 cup 7.9 [facility]. SEEK IMMEDIATE MEDICAL CARE IF: You [...] Reference. Available at http://www.nal.usda.gov/fnic/foodcomp/search/. Information adapted from: [facility] Patient Information 2009 [employer]. MDCapsule 2012 http://www.boaconsulta.com/contents/aapoyojthvuz-ozsmiaz-fuvsxr-the-basics 06/12/2022 09:13:55 Colon Polyps Colon Polyps Polyps [...] 07/29/2005 Document Revised: 02/17/2019 Document Reviewed: 02/17/2019 [employer] Patient Education 2020 5app. 06/12/2022 09:13:55 Colonoscopy, Care After Surgery [facility] (CUSTOM) Colonoscopy Care After Surgery Please read the instructions outlined below and refer to this sheet in the next few weeks. These discharge instructions provide you with general information on [facility] Your doctor may also give you specific [...] day. 06/12/2022 09:13:55 Endoscopy, Care After Procedure [facility] (CUSTOM) Endoscopy Care After Procedure Please read the instructions outlined below and refer to this sheet in the next few weeks. These discharge instructions provide you with general information on [facility] Your doctor may also give you specific [...] Document Released: 06/16/2005 Document Re-Released: 04/26/2007 [facility] Patient Information 2009 [employer]. Follow Up Care 04/23/2022 14:07:59 With:Jason RUSSELL Address: [address] [place] [address]. [address] [place] [address] Business (1) When:1 to 2 weeks Comments:Call for any problems. [facility]Chief [facility]+Reason for visit Narrative* Chief Complaint See order RENAL CKD PROGRESSIONReason for VisitAnemia of renal disease Chronic kidney disease, stage III (moderate) Hyperlipidemia [id number] Secondary hyperparathyroidism Type 2 diabetes mellitus with diabetic chronic kidney disease [facility] Work Phone: Chief complaint+Reason for visit Narrative* Chief Complaint RENAL CKD PROGRESSIO N N18.30 E78.5 N25.81 N18.9 D63.1 I12.9 E11.22 N18.3Reason for VisitAnemia of renal disease Chronic kidney disease, stage III (moderate) Hyperlipidemia [id number] Secondary hyperparathyroidism Type 2 diabetes mellitus with diabetic chronic kidney disease [facility] Work Phone: Chief complaint+Reason for visit Narrative* Chief Complaint RENAL CKD PROGRESSIO N N18.30 E78.5 N25.81 N18.9 D63.1 I12.9 E11.22 N18.3 RENAL 6 Week F/UReason for VisitAnemia of renal disease Chronic kidney disease, stage III (moderate) Hyperlipidemia [id number] Secondary hyperparathyroidism Type 2 diabetes mellitus with diabetic chronic kidney disease Anemia of renal disease Chronic kidney disease, stage III (moderate) Hyperlipidemia [id number] Hypomagnesemia Secondary hyperparathyroidism Type 2 diabetes mellitus with diabetic chronic kidney disease [facility] Work Phone: Chivj complaint+Reason for visit Narrative* Chief Complaint RENAL CKD PROGRESSIO N N18.30 E78.5 N25.81 N18.9 D63.1 I12.9 E11.22 N18.3 RENAL 6 Week F/U heart palpatationsReason for VisitAnemia of renal disease Chronic kidney disease, stage III (moderate) Hyperlipidemia [id number] Secondary hyperparathyroidism Type 2 diabetes mellitus with diabetic chronic kidney disease Anemia of renal disease Chronic kidney disease, stage III (moderate) Hyperlipidemia [id number] Hypomagnesemia Secondary hyperparathyroidism Type 2 diabetes mellitus with diabetic chronic kidney disease Heart palpitations [id number] Hypertensive urgency Slurred speech Type 2 diabetes mellitus with diabetic chronic kidney disease [facility] Work Phone: Discharge summary Author Kimberly Arteaga [facility] March 13, 2023 1:09pmNote Date/TimeApril 2022 1:08pm[address] [address] Discharge Summary Signed Patient: Anh Tejeda MR#: [id number] : 1950 Acct:[id number] Age/Sex: 72 / F Adm Date: 3 Loc: Room: [address] [place] [address]: Kimberly Arteaga MD Copies to: [...] % (Auto) 62.5, Lymph % (Auto) 28.5, [place] % (Auto) 6.9, Eos % (Auto) 1.7, Baso % (Auto) 0.4, Nucleat RBC Rel Count 0.1, Neut # (Auto)3.1, Lymph # (Auto) 1.4, [place] # (Auto) 0.3, Eos # (Auto) 0.1, [...] signed by Kimberly Arteaga MD> 03/13/23 1309 [facility] Work Phone: Evaluation + Plan note Future Appointments Appointment Date:06/12/2022 08:45:00 AM Scheduled Provider: Location:[facility] Appointment Type:Surgery FT Appointment Date:08/18/2022 11:45:00 AM Scheduled Provider:Jose Carlos Mattson MD [facility] Type:Cardiology Follow Up (FT) Future Scheduled Tests Laboratory* TIBC Calculated 04/23/22 * Ferritin 04/23/22 * Folate Level 04/23/22 * Hepatic Function Panel 04/23/22 * Iron Level 04/23/22 * Reticulocyte Count 04/23/22 * Vitamin B12 Level 04/23/22 [facility] Evaluation + Plan note Future Appointments Appointment Date:08/18/2022 11:45:00 AM Scheduled Provider:Jose Carlos Mattson MD [facility] Type:Cardiology Follow Up (FT) Future Scheduled Tests Laboratory* TIBC Calculated 04/23/22 * Ferritin 04/23/22 * Folate Level 04/23/22 * Hepatic Function Panel 04/23/22 * Iron Level 04/23/22 * Reticulocyte Count 04/23/22 * Vitamin B12 Level 04/23/22 [facility] Future Appointments Appointment Date:09/19/2022 12:20:00 PM Scheduled Provider:Nisa Shepherd CNP Location:[facility] [place] Appointment Type:[facility] Follow Up Future Scheduled Tests Laboratory* B-Type Natriuretic Peptide 09/02/22 * TIBC Calculated 04/23/22 * Ferritin 04/23/22 * Folate Level 04/23/22 * Hepatic Function Panel 04/23/22 * Iron Level 04/23/22 * Reticulocyte Count 04/23/22 * Vitamin B12 Level 04/23/22 [facility] Future Appointments Appointment Date:12/24/2022 10:20:00 AM Scheduled Provider:Nisa Shepherd CNP Location:[facility] Appointment Type:BAD Follow Up Future Scheduled Tests Laboratory* B-Type Natriuretic Peptide 09/02/22 * TIBC Calculated 04/23/22 * Ferritin 04/23/22 * Folate Level 04/23/22 * Hepatic Function Panel 04/23/22 * Iron Level 04/23/22 * Reticulocyte Count 04/23/22 * Vitamin B12 Level 04/23/22 [facility] Future Appointments Appointment Date:02/03/2023 10:00:00 AM Scheduled Provider: [facility] Appoint[facility] Type:US Abdominal/Pelvis () Appointment Date:03/23/2023 09:20:00 AM Scheduled Provider:Nisa Shepherd CNP Location:[facility] [place] Appointment Type:[facility] Follow Up Future Scheduled Tests Laboratory* [...] 02/03/23 * NM Gastric Emptying Study 12/24/22 [facility] Evaluation + Plan note Future Appointments Appointment Date:02/03/2023 10:00:00 AM Scheduled Provider: [facility] Appoint[facility] Type:US Abdominal/Pelvis () Appointment Date:03/23/2023 09:20:00 AM Scheduled Provider:Nisa Shepherd CNP Location:[facility] Appointment Type:[facility] Follow Up Future Scheduled Tests Laboratory* [...] B12 Level 12/24/22 Radiology* US Liver 02/03/23 [facility] Future Appointments Appointment Date:04/22/2023 10:00:00 AM Scheduled Provider: Location:[facility] Appointment Type:Surgery FT Future Scheduled Tests Laboratory* B-Type Natriuretic Peptide 09/02/22 * TIBC Calculated 04/23/22 * Ferritin 04/23/22 * Folate Level 04/23/22 * Hepatic Function Panel 04/23/22 * Iron Level 04/23/22 * Magnesium Level 02/04/23 * Reticulocyte Count 04/23/22 * Vitamin B12 Level 04/23/22 [facility] Evaluation + Plan note Future Appointments Appointment Date:01/28/2024 09:00:00 AM Scheduled Provider: Location:.[facility] Appointment Type:US Abdominal/Pelvis (FT) Appointment Date:02/29/2024 09:20:00 AM Scheduled Provider:Nisa Shepherd CNP Location:[facility] Appointment Type:[facility] Follow Up Future Scheduled Tests Laboratory* HCV RNA by PCR, Qn Rfx Arlet 12/08/23 * Xxazs-2-Phdaddafjwi 12/08/23 * Ceruloplasmin 12/08/23 * Antimitochondrial Antibody, [...] * Transferrin 12/08/23 Radiology* US Liver 01/28/24 [facility] Evaluation + Plan note Future Appointments Appointment Date:02/29/2024 09:20:00 AM Scheduled Provider:Nisa Shepherd CNP Location:[facility] Appointment Type:[facility] Follow Up Diagnostic Tests Pending * Njhia-1-Pxbghcmzgag 01/28/24 * MAXX w/Reflex if POS 01/28/24 [...] Future Scheduled Tests Laboratory* Magnesium Level 02/04/23 [facility] Future Appointments Appointment Date:02/29/2024 09:20:00 AM Scheduled Provider:Nisa Shepherd CNP Location:[facility] Appointment Type:[facility] Follow Up Future Scheduled Tests Laboratory* Magnesium Level 02/04/23 [facility] Future Appointments Appointment Date:09/29/2024 09:45:00 AM Scheduled Provider:Verónica Ugarte MD Location:[facility] Appointment Type:[facility] Follow Up [facility] Evaluation + Plan note Future Appointments Appointment Date:03/30/2025 09:30:00 AM Scheduled Provider:Verónica Ugarte MD Location:[facility] Appointment Type:[facility] Follow Up [facility] Evaluation + Plan note Future Appointments Appointment Date:03/30/2025 09:30:00 AM Scheduled Provider:Verónica Ugarte MD Location:[facility] Appointment Type:[facility] Follow Up Diagnostic Tests Pending * Alpha Fetoprotein Tumor Marker 03/27/25 [facility] Evaluation + Plan note Future Appointments Appointment Date:01/10/2026 10:45:00 AM Scheduled Provider:Verónica Ugarte MD Location:[facility] Appointment Type:[facility] Follow Up Future Scheduled Tests Laboratory* Comprehensive Metabolic Panel 01/11/26 [facility] evaluation noteNo assessment information available [facility] Work Phone: evaluation note* Diagnosis Anemia, unspecified type- Primary [facility] Diagnosis Iron deficiency anemia due to chronic blood loss Iron deficiency anemia secondary to blood loss (chronic) documented in this encounter [facility]* Diagnosis Anemia, unspecified type- Primary Iron deficiency anemia secondary to inadequate dietary iron intake documented in this encounter [facility]* Diagnosis Iron deficiency anemia due to chronic blood loss- Primary Iron deficiency anemia secondary to blood loss (chronic) [facility]* Diagnosis Iron deficiency anemia due to chronic blood loss- Primary Iron deficiency anemia secondary to blood loss (chronic) documented in this encounter [facility]* Diagnosis Iron deficiency anemia due to chronic blood loss- Primary Iron deficiency anemia secondary to blood loss (chronic) [facility]* Diagnosis Iron deficiency anemia secondary to inadequate dietary iron intake- Primary documented in this encounter [facility]* Diagnosis Iron deficiency anemia secondary to inadequate dietary iron intake- Primary documented in this encounter [facility]* Diagnosis Onset Date Resolution Status Acute UTI acuteChronic kidney disease, stage III (moderate)acuteDiabetesacuteHypertensive urgencyacuteParesthesias in right handacuteSlurred speechacuteSyncopeacute [facility] Work Phone: evaluation note* Diagnosis Iron deficiency anemia secondary to inadequate dietary iron intake- Primary Stage 3b chronic kidney disease (HCC) documented in this encounter [facility]* Diagnosis Iron deficiency anemia secondary to inadequate dietary iron intake- Primary Stage 3b chronic kidney disease (HCC) documented in this encounter [facility]* Diagnosis Stage 3b chronic kidney disease (HCC)- Primary Iron deficiency anemia secondary to inadequate dietary iron intake [facility]* Diagnosis Iron deficiency anemia due to chronic blood loss- Primary Iron deficiency anemia secondary to blood loss (chronic) documented in this encounter [facility]* Diagnosis Iron deficiency anemia due to chronic blood loss- Primary Iron deficiency anemia secondary to blood loss (chronic) [facility]* Diagnosis Iron deficiency anemia, unspecified iron deficiency anemia type- Primary Anemia of chronic renal failure, unspecified CKD stage Thrombocytopenia (HCC) Thrombocytopenia, unspecified [facility]* Diagnosis Onset Date Resolution Status Anemia of renal disease acuteChronic kidney disease, stage III (moderate)acuteHyperlipidemiaacute [id number] hyperparathyroidismacuteType 2 diabetes mellitus with diabetic chronic kidney diseaseacute [facility] Work Phone: Evaluation note* Diagnosis Onset Date Resolution Status Anemia of renal disease acuteChronic kidney disease, stage III (moderate)acuteHyperlipidemiaacute [id number] hyperparathyroidismacuteType 2 diabetes mellitus with diabetic chronic kidney diseaseacuteAnemia of renal diseaseacuteChronic kidney disease, stage III (moderate)ofujkMezsifxbdbveliaispzBLQ-[id number] acuteHypomagnesemiaacuteSecondary hyperparathyroidismacuteType 2 diabetes mellitus with diabetic chronic kidney diseaseacute [facility] Work Phone: Evaluation note* Diagnosis Iron deficiency anemia, unspecified iron deficiency anemia type- Primary Anemia of chronic renal failure, unspecified CKD stage [facility]* Diagnosis Onset Date Resolution Status Anemia of renal disease acuteChronic kidney disease, stage III (moderate)acuteHyperlipidemiaacute [id number] hyperparathyroidismacuteType 2 diabetes mellitus with diabetic chronic kidney diseaseacuteAnemia of renal diseaseacuteChronic kidney disease, stage III (moderate)fmncvDqqzuziqbillslofyfmQPV-[id number] acuteHypomagnesemiaacuteSecondary hyperparathyroidismacuteType 2 diabetes mellitus with diabetic chronic kidney diseaseacuteHeart palpitationsacute [id number] urgencyacuteSlurred speechacuteType 2 diabetes mellitus with diabetic chronic kidney diseaseacute [facility] Work Phone: Evaluation note* Diagnosis Transient ischemic attack- Primary Unspecified transient cerebral ischemia Palpitations Polyneuropathy Unspecified hereditary and idiopathic peripheral neuropathy documented [facility] encounter [facility]* Diagnosis Onset Date Resolution Status Anemia of renal disease acuteChronic kidney disease, stage III (moderate)acuteHyperlipidemiaacute HypomagnesemiaacuteSecondary hyperparathyroidismacuteHeart palpitationsresolved Slurred speechresolved [facility] Work Phone: Evaluation note* Diagnosis Iron deficiency anemia, unspecified iron deficiency anemia type- Primary Thrombocytopenia (HCC) Thrombocytopenia, unspecified Stage 3b chronic kidney disease (HCC) documented in this encounter [facility]* Diagnosis Hearing loss, mixed, bilateral- Primary Mixed hearing loss, bilateral documented in this encounter [facility] HealthcareEvaluation note* Diagnosis Iron deficiency anemia, unspecified iron deficiency anemia type- Primary documented in this encounter [facility]* Diagnosis Transient ischemic attack- Primary Unspecified transient cerebral ischemia Polyneuropathy Unspecified hereditary and idiopathic peripheral neuropathy Carpal tunnel syndrome, bilateral upper limbs [facility] Diagnosis Iron deficiency anemia, unspecified iron deficiency anemia type- Primary Thrombocytopenia (HCC) Thrombocytopenia, unspecified Stage 3b chronic kidney disease (HCC) documented in this encounter [facility]* Diagnosis Transient ischemic attack- Primary Unspecified transient cerebral ischemia Polyneuropathy Unspecified hereditary and idiopathic peripheral neuropathy Syncope and collapse Carpal tunnel syndrome, bilateral upper limbs [facility] Anemia, unspecified type- Primary Iron deficiency anemia, unspecified iron deficiency anemia type Stage 3b chronic kidney disease (HCC) Anemia in stage 3a chronic kidney disease (HCC) [facility] Diagnosis Anemia, unspecified type- Primary [facility] Diagnosis Onset Date Resolution Status Admit Date Anemia of renal disease acuteAugust 2024 9:42amChronic kidney disease, stage III (moderate)acute July 05, 2025 9:42amHyperlipidemiaacuteAugust 2024 9:42am HypomagnesemiaacuteAugust 2024 9:42amSecondary hyperparathyroidismacute July 05, 2025 9:42amType 2 diabetes mellitus with diabetic chronic kidney diseaseacuteAugus2024 9:42amHypertensive chronic kidney disease with stage 1 through stage 4 chronic kiinactiveAugust 2024 9:42am [facility] Work Phone: History general Narrative - Reported* Type Description Date Medical History Gastroesophageal ref lux disease, esophagitis presence not specified Medical HistoryRLS (restless legs syndrome)Medical HistoryBenign essential HTN Medical HistoryHypercholesterolemiaMedical HistoryType 2 diabetes mellitus without complication, without long-term current use of insulinMedical HistoryOSA (obstructive sleep apnea)Surgical HistoryhysterectomySurgical History cholecystectomySurgical Historyknee arthroscopy [employer] [facility] Other Hospital course Narrative No data available for this section [facility] Discharge instructions No data available for this section [facility] Discharge instructions Additional Instructions Check blood glucose before meals and at bedtimeAv[facility] Work Phone: Progress note No data available for this section [facility]healthReason for referral (narrative)No reason for referral information availableAvita Health [facility] Work Phone: Advance Directives No Advanced [...] for Visit Admit Date Essential (primary) hypertension [facility] r 2023 12:57pm Insomnia November 14, 2024 [...] for Visit Admit Date Essential (primary) hypertension [facility] r 2023 12:57pm Insomnia November 14, 2024 [...] for Visit Admit Date Essential (primary) hypertension [facility] 2023 12:57pm Insomnia November 14, 2024 12:57pm [...] a 30 minute post dose observation. New Bag/Syringe/Yfydmc0510/16/2022 10:55 AM [id number] mg166.67 mL/hrMedication Order MAR ActionAction DateDoseRateSite iron sucrose 300 mg in NaCl 0.9% 250 mL (VENOFER) 300 mg, INTRAVENOUS, at 166.67 mL/hr, Administer over 90 Minutes, ONCE, 1 dose, On [facility] 10/23/22 at 1400, Please conduct a 30 minute post dose observation. New Bag/Syringe/Tirjew1910/23/2022 1:45 PM [id number] mg166.67 mL/hrMedication Order MAR ActionAction DateDoseRateSite iron sucrose 300 mg in NaCl 0.9% 250 mL (VENOFER) 300 mg, INTRAVENOUS, at 166.67 mL/hr, Administer over 90 Minutes, ONCE, 1 dose, On [facility] 10/30/22 at 1330, Please conduct a 30 minute post dose observation. New Bag/Syringe/Rhdvol2710/30/2022 1:32 PM [id number] mg166.67 mL/hr Family History No Family History [...] Palpitations Procedures Cardiac event monitor Queta Prieto, REAL ESTATE ECONOMIST [address] [place] [address] Referral IDStatusReasonStart DateExpiration DateVisits RequestedVisits [id number] Additional Source Comments Care Team (unrecognized sect [...] Start DateEnd Date Nisa Shepherd, JENY [address] [place] [address] PCP - GeneralFami Uiqjjblu22/7/22Team MemberRelationshipSpecialtyStart DateEnd Date Nisa Shepherd, C[employer] BROKERAGE AGENT [address] [place] [address] PCP - [facility] Othhkaeh08/7/22Team MemberRelationshipSpecialtyStart DateEnd Date Nisa Shepherd, [employer]OKER[employer] AGENT [address] [place] [address] PCP - [facility]09/22/22Team MemberRelationshipSpecialtyStart DateEnd Date Nisa Shepherd, [employer]OKER[employer] AGENT [address] [place] [address] PCP - [facility]09/22/22 Team Status: Inactive Member Role Status Dates Vinay Matta , DO Primary Care Provider Active Anh Delcid NPAttending ProviderActiveTeam MemberRelationshipSpecialtyStart DateEnd Date Nisa Shepherd, [employer]OKER[employer] AGENT [address] [place] [address] PCP - [facility] Akefkvmu25/7/22Team MemberRelationshipSpecialtyStart DateEnd Date Nisa Shepherd, C[employer]OKER[employer] AGENT [address] [place] [address] PCP - [facility] Rlpcbpet32/7/22Team MemberRelationshipSpecialtyStart DateEnd Date Nisa Shepherd, C[employer]OKER[employer] AGENT [address] [place] [address] [facility] - [facility] Yzcpqgjj41/7/22Team MemberRelationshipSpecialtyStart DateEnd Date Nisa Shepherd, C[employer]OKER[employer] AGENT [address] [place] [address] PCP - [facility]09/22/22Team MemberRelationshipSpecialtyStart DateEnd Date Nisa Shepherd, JENY [address] [place] [address] PCP - [facility]09/22/22Team MemberRelationshipSpecialtyStart DateEnd Date Nisa Shepherd CNP [address] [place] [address] PCP - [facility]09/22/22 Team Status: Inactive Member Role Status Dates Vinay Matta , DO Primary Care Provider Active Alla Osborn ProviderActiveTeam MemberRelationshipSpecialtyStart DateEnd Date Nisa Shepherd CNP [address] [place] [address] PCP - [facility]09/22/22 Team Status: Inactive Member Role [...] SpecialtyStart DateEnd Date Nisa Shepherd CNP [address] [place] [address] PCP - [facility]09/22/22Team MemberRelationshipSpecialtyStart DateEnd Date Nisa Shepherd CNP [address] [place] [address] PCP - [facility]09/22/22Team MemberRelationshipSpecialtyStart DateEnd Date Nisa Shepherd CNP [address] [place] [address] PCP - [facility]09/22/22Team MemberRelationshipSpecialtyStart DateEnd Date Nisa Shepherd CNP [address] [place] [address] PCP - [facility]09/22/22Team MemberRelationshipSpecialtyStart DateEnd Date Nisa Shepherd CNP [address] [place] [address] PCP - [facility]09/22/22Team MemberRelationshipSpecialtyStart DateEnd Date Nisa Shepherd CNP [address] [place] [address] PCP - [facility]09/22/22Team MemberRelationshipSpecialtyStart DateEnd Date Nisa Shepherd CNP [address] [place] [address] PCP - [facility]09/22/22 Team Status: Inactive Member Role Status Dates Vinay Matta DO Primary Care Provide r, Attending Provider Active Start: February 11, 2024 End: February 11, 2024Team MemberRelationshipSpecialtyStart DateEnd Date Nisa Shepherd CNP [address] [place] [address] PCP - [facility]09/22/22Team MemberRelationshipSpecialtyStart DateEnd Date Nisa Shepherd CNP [address] [place] [address] PCP - [facility]09/22/22Team MemberRelationshipSpecialtyStart DateEnd Date Nisa Shepherd CNP [address] [place] [address] [facility] - [facility]09/22/22Team MemberRelationshipSpecialtyStart DateEnd Date Nisa Shepherd CNP [address] [place] [address] [facility] - [facility]09/22/22 Team Status: Inactive Member Role [...] Shepherd CNP [address] [place] [address] PCP - [facility]09/22/22 Team Status: Active Member Role [...] 22, 2024Team MemberRelationshipSpecialtyStart DateEnd Date JwhomerVinay [address] [place] [address] [facility] - [facility]01/13/24 Trae Mccarty MD [address] [place] [address] PCP - [facility]11/16/23Team MemberRelationshipSpecialtyStart DateEnd Date JwhomerVinay [address] [place] [address] [facility] - [facility]01/13/24 Trae Mccarty MD [address] [place] [address] PCP - [facility]11/16/23 Team Status: Inactive Member Role Status Dates Vinay Matta DO Primary Care Provide r, Attending Provider Active Start: September 19, 2024 End: September 19, 2024Team MemberRelationshipSpecialtyStart DateEnd Date Nisa Shepherd CNP [address] [place] [address] PCP - [facility]09/22/22Team MemberRelationshipSpecialtyStart DateEnd Date Nisa Shepherd CNP [address] [place] [address] PCP - [facility]09/22/22Team MemberRelationshipSpecialtyStart DateEnd Date Vinay Matta [address] [facility] [place] [address] PCP - [facility]01/13/24 Trae Mccarty MD [address] [facility] [place] [address] PCP - [facility]11/16/23 Team Status: Inactive Member [...] 2024Team MemberRelationshipSpecialtyStart DateEnd Date Vinay Matta [address] [facility] [place] [address] [facility]01/13/24 Trae Mccarty MD [address] [place] [address] PCP - [facility]11/16/23Team MemberRelationshipSpecialtyStart DateEnd Date Vinay Matta [address] [facility] [place] [address] [facility] - [facility]01/13/24 Trae Mccarty MD [address] [place] [address] PCP - [facility]11/16/23Team MemberRelationshipSpecialtyStart DateEnd Date Nisa Shepherd CNP [address] [place] [address] [place] [address] [facility] - [facility]09/22/22Team MemberRelationshipSpecialtyStart DateEnd Date Nisa Shepherd [employer]OKER[employer] AGENT [address] [place] [address] PCP - [facility]09/22/22 Team Status: Inactive Member Role Status Dates Vinay Matta DO Primary Care Provider Active Start: February 08, 2025 End: February 08ndlarissa Bruner MDAttending ProviderActiveStart: February 08, 2025 End: February 08, 2025Team MemberRelationshipSpecialtyStart DateEnd Date Vinay Matta [address] [facility] [place] [address] PCP - [facility]01/13/24 Trae Mccarty MD [address] [facility] [place] [address] [facility]11/16/23Team MemberRelationshipSpecialtyStart DateEnd Date Nisa Shepherd C[employer] BROKER[employer] AGENT [address] [facility] [place] [address] PCP - [facility]09/22/22 Team Status: Inactive Member Role [...] or prosecute any alcohol or drug abuse patient.[facility] CenterIn the event this information is protected by the Federal Confidentiality of Alcohol and Drug Abuse Patient Records regulations: The Federal rules restrict any use of the information to criminally investigate or prosecute any alcohol or drug abuse patient.[facility] CenterIn the event this information is protected by the Federal Confidentiality of Alcohol and Drug Abuse Patient Records regulations: The Federal rules restrict any use of the information to criminally investigate or prosecute any alcohol or drug abuse patient.[facility] CenterIn the event this information is protected by the Federal Confidentiality of Alcohol and Drug Abuse Patient Records regulations: The Federal rules restrict any use of the information to criminally investigate or prosecute any alcohol or drug abuse patient.[facility] CenterIn the event this information is protected by the Federal Confidentiality of Alcohol and Drug Abuse Patient Records regulations: The Federal rules restrict any use of the information to criminally investigate or prosecute any alcohol or drug abuse patient.[facility] CenterIn the event this information is protected by the Federal Confidentiality of Alcohol and Drug Abuse Patient Records regulations: The Federal rules restrict any use of the information to criminally investigate or prosecute any alcohol or drug abuse patient.[facility] CenterIn the event this information is protected by the Federal Confidentiality of Alcohol and Drug Abuse Patient Records regulations: The Federal rules restrict any use of the information to criminally investigate or prosecute any alcohol or drug abuse patient.[facility] CenterIn the event this information is protected by the Federal Confidentiality of Alcohol and Drug Abuse Patient Records regulations: The Federal rules restrict any use of the information to criminally investigate or prosecute any alcohol or drug abuse patient.[facility] CenterIn the event this information is protected by the Federal Confidentiality of Alcohol and Drug Abuse Patient Records regulations: The Federal rules restrict any use of the information to criminally investigate or prosecute any alcohol or drug abuse patient.[facility] CenterIn the event this information is protected by the Federal Confidentiality of Alcohol and Drug Abuse Patient Records regulations: The Federal rules restrict any use of the information to criminally investigate or prosecute any alcohol or drug abuse patient.[facility] CenterIn the event this information is protected by the Federal Confidentiality of Alcohol and Drug Abuse Patient Records regulations: The Federal rules restrict any use of the information to criminally investigate or prosecute any alcohol or drug abuse patient.[facility] CenterIn the event this information is protected by the Federal Confidentiality of Alcohol and Drug Abuse Patient Records regulations: The Federal rules restrict any use of the information to criminally investigate or prosecute any alcohol or drug abuse patient.[facility] CenterIn the event this information is protected by the Federal Confidentiality of Alcohol and Drug Abuse Patient Records regulations: The Federal rules restrict any use of the information to criminally investigate or prosecute any alcohol or drug abuse patient.[facility] CenterIn the event this information is protected by the Federal Confidentiality of Alcohol and Drug Abuse Patient Records regulations: The Federal rules restrict any use of the information to criminally investigate or prosecute any alcohol or drug abuse patient.[facility] CenterIn the event this information is protected by the Federal Confidentiality of Alcohol and Drug Abuse Patient Records regulations: The Federal rules restrict any use of the information to criminally investigate or prosecute any alcohol or drug abuse patient.[facility] CenterIn the event this information is protected by the Federal Confidentiality of Alcohol and Drug Abuse Patient Records regulations: The Federal rules restrict any use of the information to criminally investigate or prosecute any alcohol or drug abuse patient.[facility] CenterIn the event this information is protected by the Federal Confidentiality of Alcohol and Drug Abuse Patient Records regulations: The Federal rules restrict any use of the information to criminally investigate or prosecute any alcohol or drug abuse patient.[facility] CenterIn the event this information is protected by the Federal Confidentiality of Alcohol and Drug Abuse Patient Records regulations: The Federal rules restrict any use of the information to criminally investigate or prosecute any alcohol or drug abuse patient.[facility] CenterIn the event this information is protected by the Federal Confidentiality of Alcohol and Drug Abuse Patient Records regulations: The Federal rules restrict any use of the information to criminally investigate or prosecute any alcohol or drug abuse patient.[facility] CenterIn the event this information is protected by the Federal Confidentiality of Alcohol and Drug Abuse Patient Records regulations: The Federal rules restrict any use of the information to criminally investigate or prosecute any alcohol or drug abuse patient.[facility] CenterIn the event this information is protected by the Federal Confidentiality of Alcohol and Drug Abuse Patient Records regulations: The Federal rules restrict any use of the information to criminally investigate or prosecute any alcohol or drug abuse patient.[facility] CenterIn the event this information is protected by the Federal Confidentiality of Alcohol and Drug Abuse Patient Records regulations: The Federal rules restrict any use of the information to criminally investigate or prosecute any alcohol or drug abuse patient.[facility] CenterIn the event this information is protected by the Federal Confidentiality of Alcohol and Drug Abuse Patient Records regulations: The Federal rules restrict any use of the information to criminally investigate or prosecute any alcohol or drug abuse patient.[facility] CenterIn the event this information is protected by the Federal Confidentiality of Alcohol and Drug Abuse Patient Records regulations: The Federal rules restrict any use of the information to criminally investigate or prosecute any alcohol or drug abuse patient.[facility] CenterIn the event this information is protected by the Federal Confidentiality of Alcohol and Drug Abuse Patient Records regulations: The Federal rules restrict any use of the information to criminally investigate or prosecute any alcohol or drug abuse patient.[facility] CenterIn the event this information is protected by the Federal Confidentiality of Alcohol and Drug Abuse Patient Records regulations: The Federal rules restrict any use of the information to criminally investigate or prosecute any alcohol or drug abuse patient.[facility] CenterIn the event this information is protected by the Federal Confidentiality of Alcohol and Drug Abuse Patient Records regulations: The Federal rules restrict any use of the information to criminally investigate or prosecute any alcohol or drug abuse patient.[facility] CenterIn the event this information is protected by the Federal Confidentiality of Alcohol and Drug Abuse Patient Records regulations: The Federal rules restrict any use of the information to criminally investigate or prosecute any alcohol or drug abuse patient.[facility] CenterIn the event this information is protected by the Federal Confidentiality of Alcohol and Drug Abuse Patient Records regulations: The Federal rules restrict any use of the information to criminally investigate or prosecute any alcohol or drug abuse patient.[facility] CenterIn the event this information is protected by the Federal Confidentiality of Alcohol and Drug Abuse Patient Records regulations: The Federal rules restrict any use of the information to criminally investigate or prosecute any alcohol or drug abuse patient.[facility] CenterIn the event this information is protected by the Federal Confidentiality of Alcohol and Drug Abuse Patient Records regulations: The Federal rules restrict any use of the information to criminally investigate or prosecute any alcohol or drug abuse patient.[facility] CenterIn the event this information is protected by the Federal Confidentiality of Alcohol and Drug Abuse Patient Records regulations: The Federal rules restrict any use of the information to criminally investigate or prosecute any alcohol or drug abuse patient.[facility] CenterIn the event this information is protected by the Federal Confidentiality of Alcohol and Drug Abuse Patient Records regulations: The Federal rules restrict any use of the information to criminally investigate or prosecute any alcohol or drug abuse patient.[facility] CenterIn the event this information is protected by the Federal Confidentiality of Alcohol and Drug Abuse Patient Records regulations: The Federal rules restrict any use of the information to criminally investigate or prosecute any alcohol or drug abuse patient.[facility] CenterIn the event this information is protected by the Federal Confidentiality of Alcohol and Drug Abuse Patient Records regulations: The Federal rules restrict any use of the information to criminally investigate or prosecute any alcohol or drug abuse patient.[facility] CenterIn the event this information is protected by the Federal Confidentiality of Alcohol and Drug Abuse Patient Records regulations: The Federal rules restrict any use of the information to criminally investigate or prosecute any alcohol or drug abuse patient.[facility] CenterIn the event this information is protected by the Federal Confidentiality of Alcohol and Drug Abuse Patient Records regulations: The Federal rules restrict any use of the information to criminally investigate or prosecute any alcohol or drug abuse patient.[facility] Reason for Visit (unrecogniz ed section and content) ReasonCommentsAnemiaNew patient consultationReasonCommentsResults, LabReason CommentsBenefits InvestigationReasonCommentsAnemiaSpecialtyDiagnoses / ProceduresReferred By ContactReferred To Contact Diagnoses Iron deficiency anemia due to chronic blood loss Procedures IRON SUCROSE INJECTION PER 1 MG Henry Walker MD [address] [place] [address] [address] [place] [address] Referral IDStatusReasonStart DateExpiration DateVisits RequestedVisits [id number] for [id number] IDStatus ReasonStart DateExpiration DateVisits RequestedVisits [id number] month follow upReasonCommentsAnemiaFollow upReasonCommentsAnemia2 month follow up ReasonCommentsPatient UpdateReasonCommentsAnemia3 month follow upReasonComments IV IronSpecialtyDiagnoses / ProceduresReferred By ContactReferred To Contact Diagnoses Iron deficiency anemia due to chronic blood loss Procedures IRON SUCROSE INJECTION PER 1 MG Daksha Bridges PA-C [address] [place] [address] [place] [address] [address] [place] [address] Referral IDStatusReasonStart DateExpiration DateVisits RequestedVisits [id number] 3b chronic kidney diseaseReasonCommentsLab OrdersReasonCommentsTransient Ischemic AttackReasonOnset DateCommentsResults, Lab01/09/2025ReasonOnset DateComments labs/follow up04/11/2025 INFORMATION SOURCE (unrecogn ized section and content) DATE CREATED AUTHOR 03/30/2023 [facility] DATE CREATED AUTHOR AUTHOR'S ORGANIZ ATION 05/12/2023 [facility] DATE CREATED AUTHOR AUTHOR'S ORGANIZ ATION 03/27/2025 [facility] DATE CREATED AUTHOR AUTHOR'S ORGANIZ ATION 03/28/2025 [facility] DATE CREATED AUTHOR AUTHOR'S ORGANIZ ATION 04/01/2025 [facility] DATE CREATED AUTHOR AUTHOR'S ORGANIZ ATION 05/10/2025 [facility] DATE CREATED AUTHOR AUTHOR'S ORGANIZ ATION 06/09/2025 [facility] DATE CREATED AUTHOR AUTHOR'S ORGANIZ ATION 07/13/2025 [facility] DATE CREATED AUTHOR AUTHOR'S ORGANIZ ATION 08/04/2025 [facility] DATE CREATED AUTHOR AUTHOR'S ORGANIZ ATION 08/09/2025 [facility] Inactive Administered Medications - up to 3 most recent administrations Administered Medications (un recognized section and content) Medication OrderMAR ActionAction DateDoseRateSite iron sucrose 300 mg in NaCl 0.9% 250 mL (VENOFER) 300 mg, INTRAVENOUS, at 166.67 mL/hr, Administer over 90 Minutes, ONCE, 1 dose, On [facility] 02/18/24 at 1000, Please conduct a 30 minute post dose observation. Refrigerate New Bag/Syringe/Nzfotw2902/18/2024 10:13 AM HPK321 mg166.67 mL/hrMedication Order MAR ActionAction DateDoseRateSite iron sucrose 300 mg in NaCl 0.9% 250 mL (VENOFER) 300 mg, INTRAVENOUS, at 166.67 mL/hr, Administer over 90 Minutes, ONCE, 1 dose, On [facility] 02/25/24 at 1030, Please conduct a 30 minute post dose observation. Refrigerate New Bag/Syringe/Vzzyrc7502/25/2024 10:18 AM GLI722 mg166.67 mL/hr FOR RECORDS PERTAINING TO PATIENTS [...]
[2025-10-09] MEDS: 0.9 % SODIUM CHLORIDE 10 ML SYRINGE - SALINE FLUSH INJ (10:08)
[2025-10-09] MEDS: IOHEXOL 240 MG/ML - 10 ML VIAL INJ (10:08)
[2025-10-09] MEDS: METHYLPREDNISOLONE ACETATE 80 MG/ML VIAL INJ (10:08)
[2025-10-09] MEDS: LIDOCAINE HCL 2% 400 MG/20 ML MDV 5 ML INJ (10:08)
[2025-10-09] MEDS: BUPIVACAINE HCL 0.25% PF 25 MG/10 ML VIAL INJ (10:08)
[2025-10-09 10:09] VITALS: BP 175/81; BP 179/81; PULSE 82; PULSE 83; O2SAT 94; O2SAT 95
--- NOTE | 2025-10-09 10:13 | P.ON_ITS ---
Date of procedure: 10/09/25 Pre-op diagnosis: Pain due to lumbar stenosis with neurogenic claudication Post-op diagnosis: same as pre-op Procedure: Procedure: Right L5-S1, S1-2 transforaminal epidural steroid injection Medications: Bupivacaine 0.25% 2cc, lidocaine 2% 1cc, depomedrol 80mg The patient was seen and examined in the preoperative holding area.? Informed consent was obtained and placed on the chart.? Patient was brought to the medical procedure unit and placed in the prone position where a timeout was completed verifying the correct patient, procedure site, position, and planned special equipment using sterile aseptic technique.? Under direct fluoroscopic visualization a 25-gauge Quincke tipped spinal needle was advanced to the designated neural foramen where contrast dye was injected to show adequate spread.? The needle was inserted at level right L5-S1. There was no evidence of vascular or adverse uptake.? Epidural spread was appreciated.? The above- mentioned injectate was then placed in a 1.5 mL aliquot preceded by negative aspiration.? The needle was removed. The needle was inserted and the procedure repeated at level right S1-2.? The surgery site was covered.? Patient was taken to the postprocedural recovery area and monitored for an appropriate length of time before found suitable for discharge in the accompaniment of a responsible adult. Anesthesia: Local Surgeon: Tessy Bruner Pathology: none sent Condition: stable Disposition: no change
== END 2025-10-09 10:13 | disposition home or self-care (01) ==
PROVIDERS: PCP Family Medicine; Visit Provider Anesthesiology
DX: M48.062 Spinal stenosis, lumbar region with neurogenic claudication (principal); G89.29 Other chronic pain; E11.8 Type 2 diabetes mellitus with unspecified complications; Z79.84 Long term (current) use of oral hypoglycemic drugs
CPT/HCPCS: 64483; 64484; J0665; J1010; Q9966

== ENCOUNTER 2025-10-18 09:56 | Outpatient (OUT) | payer OTHER, SELFPAY ==
--- OUTSIDE RECORDS SUMMARY | 2025-10-18 10:00 | XMS_ITS | Clinical Summary ---
Author Organization [facility] Address [address] [place] [address] Care Team Providers Care Acid Extractor Name Role Phone Candelario Sosa Primary Care Provider [phone] Trae Mccarty MD Unavailable Allergies Active AllergyReactionsCriticalityNoted KehmQibexvtuCxibyilwmpipm70/05/2023 Acetaminophen-SwlitndCzytzCtvq06/16/2022 pt states she is unwilling to try even plain tylenol after this experience even though she states she took tylenol prior to this and had no problems FukypavEqxqy61/11/2022 Upset stomach Medications MedicationSigDispense QuantityRefillsLast FilledStart DateEnd [...] mg09/29/2024ctive Active Problems ProblemNoted DateDiagnosed DateTransient ischemic xyihhu9008/16/2024alpitations 08/16/2024Syncope and paeitdie37/14/6459Tyacfhcrnku61/13/2024 Overview (07/20/2024): Patient also experiences chronic right handed paresthesia and pain into first digit of her 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 She also has been told she has history of sciatica on the right leg with significant neuropathy. EMGs were recommended outpatient to further evaluate paresthesia in RUE and lower extremities. Balance zgtnlmw4503/28/20246065Hyopmarjwtodav16/13/2024 Overview (07/20/2024): She also has been told [...] not a tripping adan if applicable. Autonomic nijklxbejcl80/13/2024eripheral dytuotwzeg46/13/2024arpal tunnel syndrome, bilateral upper limbs03/28/2024arpal tunnel syndrome [...] on this for now. Mixed hearing loss, twdbxixbb34/27/2024Tympanic membrane central perforation, tvwsluidw07/27/2024cquired hallux valgus of right foot02/02/2024cquired hammer toe deformity of lesser toe of right foot02/02/2024iabetes tzdxavvz03/19/2024 Neuropathy of lower afnquzswv12/19/2024Type 2 diabetes mellitus without complication, without long-term current use of hatnzgv2302/02/2024Stage 3b chronic kidney nhlasdg3101/29/2024Iron deficiency anemia due to chronic blood loss 10/03/2022GERD (gastroesophageal reflux disease)09/05/2010History of malignant neoplasm of skin09/05/20107762Mmgberjdveh59/21/2010symptomatic varicose veins 09/05/2010Depressive qopaedxr38/21/2010Essential buykluxlfvyc18/21/2010 Family History Medical HistoryRelationNameCommentsDiabetesBrotherHeart diseaseBrother HypertensionBrotherStrokeBrotherCancerFatherHypertensionFatherCancerMother DiabetesMotherHeart diseaseMotherHypertensionMotherStrokeMotherRelationName ArsqsqSprlutldWbjrmqnq1WauocyFfgwtxrgUbmfysPqpdhpwj Social History Tobacco UseTypesPacks/DayYears UsedDateSmoking Tobacco: NeverSmokeless Tobacco: Never Tobacco Cessation:Counseling Given: Not Answered Alcohol UseStandard Drinks/WeekCommentsDefer0 (1 standard drink = 0.6 oz pure alcohol)caffeine intake: 1-2 cups per dayCommentsUnknownSex and Gender InformationValueDate RecordedSex Assigned at IyxanMmjqke38/26/2024 11:23 AM EST Legal YxzTzptre29/15/2023 7:09 PM EDTGender GzufhetoQnjqvh02/26/2024 11:23 AM ESTSexual OrientationChoose not to drbprerm08/26/2024 11:23 AM EST Last Filed Vital Signs Vital SignReadingTime TakenCommentsBlood Rjmnzfgu211/68003/06/2025 9:47 AM EDT Jdexq342908/16/2024 8:51 AM BXEHwrpquvzmgm69.5 ??C (97.7 ??F)02/15/2024 10:12 AM EDTRespiratory Rate--Oxygen Mvhkvjejfh48%03/29/2024 2:36 PM EDTInhaled Oxygen Concentration--Qmdtve48.4 kg (217 lb)03/06/2025 9:47 AM UNHEwewez073.9 cm (5' 1 )03/06/2025 9:47 AM EDTBody Mass Tosyh086603/06/2025 9:47 AM EDT Plan of Treatment Health MaintenanceDue DateLast DoneCommentsDiabetes: Hemoglobin A1C1948 Diabetes: Retinopathy Howiflpir98/14/1959Diabetes: Urine Protein Screening 1967Pneumococcal Vaccine: 65+ Years (2 of 2 - PCV) COVID-19 Vaccine ( season)/, 02/05/2021, 01/14/2021Influenza Vaccine (#1)510/07/2024, 11/25/2023, 08/27/2022, Additional history jembdcSkmscukjginTokjfxvcoqjj06/28/2022Colorectal Cancer ScreeningDiscontinuedCT ColonographyDiscontinuedFIT-DNADiscontinuedFIT DiscontinuedFOBTDiscontinuedSigmoidoscopyDiscontinued Insurance Care Teams Team MemberRelationshipSpecialtyStart DateEnd Candelario Sosa [address] [place] [address] [facility] - [facility] Trae Mccarty MD [address] [place] [address] PCP - Devoted11/16/23
--- OUTSIDE RECORDS SUMMARY | 2025-10-18 10:00 | XMS_ITS | Clinical Summary ---
Author Organization [facility] Address [address] [place] [address] Care Team Providers Care Inspector Water Pollution Control Name Role Phone Nisa Shepherd CNP Primary Care Provider [phone] Allergies Active AllergyReactionsCriticalityNoted DateCommentsAcetaminophen-CodeineOther: See HikaloufMdbe91/16/2022 pt states she is unwilling to try even plain tylenol after this experience even though she states she took tylenol prior to this and had no problems CodeineOther: See Iualrtbt60/11/2022 Upset stomach Medications MedicationSigDispense QuantityRefillsLast FilledStart DateEnd [...] Problems ProblemNoted DateDiagnosed DateStage 3b chronic kidney mtszyee5401/29/2024Iron deficiency anemia due to chronic blood loss10/03/2022 Encounters DateTypeDepartmentCare HtsiUffxzvvqqox60/23/2025Results Follow-Up Hematology/Oncology [address] [place] [address] [place] [address] Daksha Balderas PA-C Qqosfai6808/07/2025 10:30 AM EDTVisit (SP) Office Hematology/Oncology [address] [place] [address] [place] [address] Daksha Balderas PA-C Iron deficiency anemia, unspecified iron deficiency anemia type (Primary Dx); Anemia in stage 3a chronic kidney disease (HCC); Ltbjyqczzqdtomnv06/22/2025Travelfrom Last 3 Months Immunizations ImmunizationAdministration DatesNext Dueinfluenza (HD-IIV3) vaccine, age 65+ yr, high dose, trivalent, PF (FLUZONE HIGH-DOSE)09/18/2016influenza (HD-IIV4) vaccine, age 65+ yr, high dose, quadrivalent, PF (FLUZONE HIGH-DOSE)11/25/2023, 08/27/2022,09/26/2021influenza (IIV3) vaccine, trivalent (AFLURIA, FLULAVAL, FLUVIRIN, FLUZONE)10/17/2015influenza (IIV4) vaccine, age 6 mo - 64 yr, quadrivalent, PF (AFLURIA, FLUARIX, FLULAVAL, FLUZONE)08/16/2018influenza (LAIV) vaccine, nasal, unspecified eylpipxmbxu65/01/2018pneumococcal polysaccharide (PPV23) vaccine, 23 valent (PNEUMOVAX 23)08/16/2018 Family History Medical HistoryRelationCommentsLung CancerFatherCongenital heart diseaseMother RelationStatusCommentsFatherMother Social History Tobacco UseTypesPacks/DayYears UsedDateSmoking Tobacco: NeverPassive Smoke Exposure: PastSmokeless Tobacco: Never Tobacco Cessation:Counseling Given: Not Answered Alcohol UseStandard Drinks/WeekCommentsNever0 (1 standard drink = 0.6 oz pure alcohol)PHQ-2AnswerDate RecordedPHQ-2 dgtpy5734Area Deprivation Index AnswerDate RecordedNational Score (1-100), lower number is lower risk80 05/01/2023State Score (1-10), lower number is lower ohwu5933Data from: https://www.neighborhoodatlas.medicine.[facility].edu/. Last address used for [address]CommentsNoSex and Gender Information ValueDate RecordedSex Assigned at BirthNot on fileLegal DgwLjbmvp67/07/2022 10:39 AM ESTGender IdentityNot on fileSexual OrientationNot on file Last Filed Vital Signs Vital SignReadingTime TakenCommentsBlood Sfsumxlq541/5909 10:30 AM EDT Yjwjx1898 10:30 AM EEFKuivdzcbyax43.5 ??C (97.7 ??F)08/07/2025 10:30 AM EDTRespiratory Pyny155008/07/2025 10:30 AM EDTOxygen Dtonfckyfu90%08/07/2025 10:30 AM EDTInhaled Oxygen Concentration--Ysqajf725.9 kg (222 lb 7.1 oz)08/07/2025 10:30 AM GMNHgxgvy332 cm (5' 2.21 )04/25/2025 10:47 AM EDTBody Mass Index40.42 04/25/2025 10:47 AM EDT Plan of Treatment DateTypeDepartmentCare Team (Latest Contact Info)Qlknbczcedk02/30/2025 10:45 AM ESTOffice Visit [facility] [address] [place] [address] lab11/14/2025 11:00 AM ESTVisit (SP) Office Hematology/Oncology [address] [place] [address] Sonja Sue, DEBORAH.DIRECTOR DATABASE [address] [place] [address] [place] [address] 3 month follow up with Daksha and labHealth MaintenanceDue DateLast DoneComments Annual PCP Team Chronic Disease Visit1966Anxiety Qbvzimcma39/14/1967 Depression Srnwiziti37/14/1967Hepatitis C Whsflwyeb41/14/1967DTaP,Tdap,Td Vaccine (1 - Tdap)1967Shingrix Vaccine (1 of 2)1998Bone Density Qeaduswol24/14/2014Pneumococcal Vaccine: 50+ (2 of 2 - PCV) Advance Directive Rcxaogsmnz80/01/2025Medicare Advantage Annual Wellness Visit 11/16/2024ovid-19 Vaccine ( season)9/, 02/05/2021, 01/14/2021Influenza Vaccine (#1)/07/2024, 11/25/2023, 08/27/2022, Additional history existsHemoglobin/Umcwzhwios20, 04/18/2025, 04/07/2025, Additional history existsSerum Lldjhvctoy02/22/202609/, 04/18/2025, 04/07/2025, Additional history existsDiabetes Zqgvextep63/22/2028 08/07/2025, 04/18/2025, 04/07/2025, Additional history existsRSV Vaccine Rbmnjdwyh51/09/2024 Procedures Procedure NamePriorityDate/TimeAssociated DiagnosisCommentsKAPPA/SAMANIEGO,FREE,SER Rdqpgrd2408/07/2025 10:15 AM EDT Iron deficiency anemia, unspecified iron deficiency anemia type Thrombocytopenia Stage 3b chronic kidney disease (HCC) Anemia, unspecified type IMMUNOFIXATION SCREEN, MWIWRXpzdcbf59/22/2025 10:15 AM EDT Iron deficiency anemia, unspecified iron deficiency anemia type Thrombocytopenia Stage 3b chronic kidney disease (HCC) Anemia, unspecified type IMMUNOGLOBULINS IJZCwnnapr99/22/2025 10:15 AM EDT Iron deficiency anemia, unspecified iron deficiency anemia type Thrombocytopenia Stage 3b chronic kidney disease (HCC) Anemia, unspecified type PROTEIN ELECTROPHORESIS SERUM (P)Nsstbak3908/07/2025 10:15 AM EDT Iron deficiency anemia, unspecified iron deficiency anemia type Thrombocytopenia Stage 3b chronic kidney disease (HCC) Anemia, unspecified type PROTEIN, TOTAL (FOR SEPG)Pbkibdp4408/07/2025 10:15 AM EDT Iron deficiency anemia, unspecified iron deficiency anemia type Thrombocytopenia Stage 3b chronic kidney disease (HCC) Anemia, unspecified type MONOCLONAL PROTEIN, SERUM (BLOOD)Cbeyimg0908/07/2025 10:15 AM EDT Iron deficiency anemia, unspecified iron deficiency anemia type Thrombocytopenia Stage 3b chronic kidney disease (HCC) Anemia, unspecified type PROTEIN ELECTROPHORESIS SERUM W/QKKSENYatuacz05/22/2025 10:15 AM EDT Iron deficiency anemia, unspecified iron deficiency anemia type Thrombocytopenia Stage 3b chronic kidney disease (HCC) Anemia, unspecified type FOLATE LTIRXAepigdm01/22/2025 10:15 AM EDT Iron deficiency anemia, unspecified iron deficiency anemia type Thrombocytopenia Stage 3b chronic kidney disease (HCC) Anemia, unspecified type VITAMIN B12 XIEPKIkgqftc62/22/2025 10:15 AM EDT Iron deficiency anemia, unspecified iron deficiency anemia type Thrombocytopenia Stage 3b chronic kidney disease (HCC) Anemia, unspecified type ERYTHROPOIETIN/BHFOxldylm31/22/2025 10:15 AM EDT Iron deficiency anemia, unspecified iron deficiency anemia type Thrombocytopenia Stage 3b chronic kidney disease (HCC) Anemia, unspecified type FERRITIN KULOuwqmei07/22/2025 10:15 AM EDT Iron deficiency anemia, unspecified iron deficiency anemia type Thrombocytopenia Stage 3b chronic kidney disease (HCC) Anemia, unspecified type CBC + IKDSXabinlh01/22/2025 10:15 AM EDT Iron deficiency anemia, unspecified iron deficiency anemia type Thrombocytopenia Stage 3b chronic kidney disease (HCC) Anemia, unspecified type IRON + ZYZNTrjwdqb30/22/2025 10:15 AM EDT Iron deficiency anemia, unspecified iron deficiency anemia type Thrombocytopenia Stage 3b chronic kidney disease (HCC) Anemia, unspecified type RETIC LOKTYJmlwcoh04/22/2025 10:15 AM EDT Iron deficiency anemia, unspecified iron deficiency anemia type Thrombocytopenia Stage 3b chronic kidney disease (HCC) Anemia, unspecified type COMPREHENSIVE METABOLIC OUPCKUdowjsv83/22/2025 10:15 AM EDT Iron deficiency anemia, unspecified iron deficiency anemia type Thrombocytopenia Stage 3b chronic kidney disease (HCC) Anemia, unspecified type from Last 3 Months Results * IMMUNOFIXATION SCREEN, SERUM (08/07/2025 10:15 AM EDT)ComponentValueRef Range Test MethodAnalysis TimePerformed AtPathologist SignatureMPA ResultNo M protein is identified.No M protein is identified.08/09/2025 9:33 AM EDT [facility] LABStaff Review (MPA)Reviewed by Nimco Meredith M.D.08/09/2025 9:33 AM EDTCLAKE [facility] LABSpecimen (Source) Anatomical Location / LateralityCollection Method / VolumeCollection Time Received TimeBloodBLOOD SPECIMEN / UnknownVenipuncture / Xdsnyyp2708/07/2025 10:15 AM EDT08/07/2025 10:15 AM EDT Narrative Authorizing ProviderResult TypeResult StatusDaksha Martinez Balderas KARO-CLABORATORYFinal ResultPerforming OrganizationAddressCity/State/ZIP CodePhone Number [facility] [address] [phone], * (ABNORMAL) PROTEIN, TOTAL (FOR SEPG) (08/07/2025 10:15 AM EDT)ComponentValue Ref RangeTest MethodAnalysis TimePerformed AtPathologist SignatureProtein, Total5.7(L)6.3 - 8.0 g/dL08/07/2025 8:53 PM [facility] LABSpecimen (Source)Anatomical Location / LateralityCollection Method / Volume Collection TimeReceived TimeBloodBLOOD SPECIMEN / UnknownVenipuncture / Cxjebfy7508/07/2025 10:15 AM EDT08/07/2025 10:15 AM EDT Narrative Authorizing ProviderResult TypeResult StatusDaksha Martinez Sherrie HUDDLESTON-CLABORATORYFinal ResultPerforming OrganizationAddressCity/State/ZIP CodePhone Number [facility] [address] [place] [address], * (ABNORMAL) PROTEIN ELECTROPHORESIS SERUM (P) (08/07/2025 10:15 AM EDT) ComponentValueRef RangeTest MethodAnalysis TimePerformed AtPathologist SignatureAlbumin for SPE3.483.43 - 5.41 g/dL08/09/2025 9:15 AM EDHEN[facility] LABAlpha 1 Globulin0.350.18 - 0.43 g/dL08/09/2025 9:15 AM EDHEN[facility] LABAlpha 2 Globulin0.800.42 - 0.98 g/dL 08/09/2025 9:15 AM [facility] LABBeta Globulin0.56(L)0.61 - 1.17 g/dL08/09/2025 9:15 AM [facility] LABGamma Globulin0.50(L)0.53 - 1.51 g/dL08/09/2025 9:15 AM [facility] LABInterpretation (Prot Electro)No definitive M protein is identified on protein electrophoresis.No definitive M protein is identified on protein electrophoresis.08/09/2025 9:15 AM [facility] Interpretation Comment for Protein ElectrophoresisHypogammaglobulinemia is present, which can be seen in the setting of monoclonal gammopathy. If clin ically indicated, monoclonal protein analysis and serum free light chain analysis are suggested to evaluate further for monoclonal gammopathy. 08/09/2025 9:15 AM [facility] LABM-Protein Location 08/09/2025 9:15 AM [facility] LABComment:Not Applicable. M-Protein Concentration0.00<=0.00 g/dL08/09/2025 9:15 AM [facility] LABSPE Staff ReviewReviewed by Nimco Meredith M.D.08/09/2025 9:15 AM [facility] LABSpecimen (Source)Anatomical Location / LateralityCollection Method / VolumeCollection TimeReceived TimeBloodBLOOD SPECIMEN / UnknownVenipuncture / Lgcbkrh5608/07/2025 10:15 AM EDT08/07/2025 10:15 AM EDT Narrative [facility] - 08/09/2025 9:15 AM EDT Serum electrophoresis test was performed using the Cephasonics V8 NEXUS capillary electrophoresis method. Results obtained with different assay methods or kits cannot be used interchangeably. Authorizing ProviderResult TypeResult StatusMinvera HUDDLESTON-CLABORATORYFinal ResultPerforming OrganizationAddressCity/State/ZIP CodePhone Number [facility] [address] [address], * (ABNORMAL) KAPPA/SAMANIEGO,FREE,SER (08/07/2025 10:15 AM EDT)ComponentValueRef RangeTest MethodAnalysis TimePerformed AtPathologist SignatureKappa Free, Serum28.9(H)3.3 - 19.4 mg/L08/08/2025 2:30 PM [facility] LABComment: Rarely, increased serum free light chains levels may not be detected or accurately quantified due to prozone phenomenon or in high viscosity samples using this immunoturbidimetric assay. Correlation with other laboratory results and clinical findings is recommended. The [place] Free Light Chain was performed using the Binding Site Optilite immunoturbidimetric method. Result obtained with different assay methods or kits cannot be used interchangeably. Lambda Free, Serum27.7(H)5.7 - 26.3 mg/L08/08/2025 2:30 PM [facility] LABComment: Rarely, increased serum free light [...] K/L Ratio, Serum1.040.26 - 1.65008/08/2025 2:30 PM [facility] LABSpecimen (Source)Anatomical Location / LateralityCollection Method / VolumeCollection TimeReceived TimeBloodBLOOD SPECIMEN / UnknownVenipuncture / Qchekww0608/07/2025 10:15 AM EDT08/07/2025 10:15 AM EDT Narrative Authorizing ProviderResult TypeResult StatusMinvera HUDDLESTON-CLABORATORYFinal ResultPerforming OrganizationAddressCity/State/ZIP CodePhone Number [facility] [address] * VITAMIN B12 (08/07/2025 10:15 AM EDT)ComponentValueRef RangeTest Method Analysis TimePerformed AtPathologist SignatureVitamin [id number] - 1,245 pg/mL 08/07/2025 9:05 PM [facility] LABSpecimen (Source) Anatomical Location / LateralityCollection Method / VolumeCollection Time Received TimeBloodBLOOD SPECIMEN / UnknownVenipuncture / Btiiuka8308/07/2025 10:15 AM EDT08/07/2025 10:15 AM EDT Narrative Authorizing ProviderResult TypeResult StatusMinvera Baldersa PA-CLABORATORYFinal ResultPerforming OrganizationAddressCity/State/ZIP CodePhone Number [facility] [address] [address], [place] * (ABNORMAL) RETICULOCYTE COUNT (08/07/2025 10:15 AM EDT)ComponentValueRef Range Test MethodAnalysis TimePerformed AtPathologist SignatureRetic %3.1(H)0.4 - 2.0 %08/07/2025 10:24 AM [facility] LABAbs Retic 0.113(H)0.018 - 0.100 M/uL08/07/2025 10:24 AM EDTRIVER [facility] LABSpecimen (Source)Anatomical Location / LateralityCollection Method / VolumeCollection TimeReceived TimeBloodBLOOD SPECIMEN / UnknownVenipuncture / Hssrqmd1208/07/2025 10:15 AM EDT08/07/2025 10:15 AM EDT Narrative Authorizing ProviderResult TypeResult StatusDaksha Martinez Sherrie PA-CLABORATORYFinal ResultPerforming OrganizationAddressCity/State/ZIP CodePhone Number [facility] [address] [place] [phone] * IRON AND TIBC (08/07/2025 10:15 AM EDT)ComponentValueRef RangeTest Method Analysis TimePerformed AtPathologist MlbwhcwmtNlpl1086 - 186 ug/dL08/07/2025 8:14 PM EDTCLAKE [facility] AEPIJEQ446137 - 386 ug/dL08/07/2025 8:14 PM EDHENRY COUNTY [facility] LABTransferrin Xnbuclynqc97.715.0 - 57.0 %08/07/2025 8:14 PM EDTCLAKE COUNTY [facility] LABSpecimen (Source) Anatomical Location / LateralityCollection Method / VolumeCollection Time Received TimeBloodBLOOD SPECIMEN / UnknownVenipuncture / Gpjhfxe3708/07/2025 10:15 AM EDT08/07/2025 10:15 AM EDT Narrative Authorizing ProviderResult TypeResult StatusDaksha Balderas PA-CLABORATORYFinal ResultPerforming OrganizationAddressCity/State/ZIP CodePhone Number [facility] [address] [facility] [address] [place] [address], [place] * (ABNORMAL) IMMUNOGLOBULINS,IGG,IGA,IGM (08/07/2025 10:15 AM EDT)ComponentValue Ref RangeTest MethodAnalysis TimePerformed AtPathologist WjzimrbcaFtP415(L)700 - 1,600 mg/dL08/08/2025 11:10 AM [facility] CJCJoK51(L)70 - 400 mg/dL08/08/2025 11:10 AM [facility] CLAMcB58(L)40 - 230 mg/dL08/08/2025 11:10 AM [facility] LABSpecimen (Source)Anatomical Location / LateralityCollection Method / VolumeCollection TimeReceived TimeBloodBLOOD SPECIMEN / UnknownVenipuncture / Qbveyto0908/07/2025 10:15 AM EDT08/07/2025 10:15 AM EDT Narrative Authorizing ProviderResult TypeResult StatusMinvera Martinez Sherrie PA-CLABORATORYFinal ResultPerforming OrganizationAddressCity/State/ZIP CodePhone Number [facility] [place] [address], * FOLATE, SERUM (08/07/2025 10:15 AM EDT)ComponentValueRef RangeTest Method Analysis TimePerformed AtPathologist SignatureFolate>20.0>4.7 ng/mL08/07/2025 9:05 PM [facility] LABComment: A result of > 20 ng/mL is not necessarily indicative of a pathologic or treatable condition: it reflects a limitation of the test methodology. Assay reference range: 4.8 to 24.2 ng/mL. Suitable for detection of folate deficiency. Reference: Folate III (Folate III) [package insert V 1.0 Bulgarian]. [employer], [place], [place]: September 2015. Specimen (Source)Anatomical Location / LateralityCollection Method / Volume Collection TimeReceived TimeBloodBLOOD SPECIMEN / UnknownVenipuncture / Unknown 08/07/2025 10:15 AM EDT08/07/2025 10:15 AM EDT Narrative Authorizing ProviderResult TypeResult StatusMinvera Martinez Sherrie PA-CLABORATORYFinal ResultPerforming OrganizationAddressCity/State/ZIP CodePhone Number [facility] [address] [phone], * (ABNORMAL) FERRITIN (08/07/2025 10:15 AM EDT)ComponentValueRef RangeTest MethodAnalysis TimePerformed AtPathologist BwidwlejoSjwjvyar166.0(H)14.7 - 205.1 ng/mL08/07/2025 8:23 PM EDTCLAKE COUNTY [facility] LABSpecimen (Source)Anatomical Location / LateralityCollection Method / VolumeCollection TimeReceived TimeBloodBLOOD SPECIMEN / UnknownVenipuncture / Enwuurl6208/07/2025 10:15 AM EDT08/07/2025 10:15 AM EDT Narrative Authorizing ProviderResult TypeResult StatusMinvera Henriquez Sherrie PA-CLABORATORYFinal ResultPerforming OrganizationAddressCity/State/ZIP CodePhone Number [facility] [address] [place] [address], [place] * (ABNORMAL) ERYTHROPOIETIN/EPO (08/07/2025 10:15 AM EDT)ComponentValueRef Range Test MethodAnalysis TimePerformed AtPathologist BhqjpcsgcQxkdrwtpleoqff75.0(H) 2.6 - 18.5 mIU/mL08/08/2025 10:12 AM EDHEN[facility] LAB Specimen (Source)Anatomical Location / LateralityCollection Method / Volume Collection TimeReceived TimeBloodBLOOD SPECIMEN / UnknownVenipuncture / Cqjzibb3708/07/2025 10:15 AM EDT08/07/2025 10:15 AM EDT Narrative [facility] - 08/08/2025 10:12 AM EDT Test analyzed by the Aman DxI method. Authorizing ProviderResult TypeResult StatusMinvera Henriquez Sherrie PA-CLABORATORYFinal ResultPerforming OrganizationAddressCity/State/ZIP CodePhone Number [facility] [address] [place] [address], * (ABNORMAL) COMPREHENSIVE METABOLIC PANEL (08/07/2025 10:15 AM EDT)Component ValueRef RangeTest MethodAnalysis TimePerformed AtPathologist Signature Protein, Total6.1(L)6.3 - 8.0 g/dL08/07/2025 11:46 AM EDTNORTHCO[facility] LABAlbumin3.93.9 - 4.9 g/dL08/07/2025 11:46 AM [facility] LABCalcium, Total8.78.5 - 10.2 mg/dL08/07/2025 11:46 AM [facility] LABBilirubin, Total0.60.2 - 1.3 mg/dL 08/07/2025 11:46 AM [facility] LABAlkaline Nwzldtzbhrr664(H)34 - 123 U/L08/07/2025 11:46 AM [facility] UVJVSI1576 - 35 U/L08/07/2025 11:46 AM [facility] ZIQTXE295 - 38 U/L08/07/2025 11:46 AM [facility] CVOUjidrwf148(H)74 - 99 mg/dL08/07/2025 11:46 AM [facility] LABComment: The [place] Diabetes Association (ADA) provides guidance for cutoff [...] Standards of Medical Care in Diabetes 2016, [place] [employer] Association. Diabetes Care. 2016.39(Suppl 1). BUN34(H)7 - 21 mg/dL08/07/2025 11:46 AM [facility] LAB Creatinine1.33(H)0.58 - 0.96 mg/dL08/07/2025 11:46 AM [facility] JESHnynmb541760 - 144 mmol/L08/07/2025 11:46 AM [facility] LABPotassium4.43.7 - 5.1 mmol/L08/07/2025 11:46 AM EDT [facility] SIQPxtqnabn11569 - 107 mmol/L08/07/2025 11:46 AM ED[facility] LHUKD35315 - 30 mmol/L08/07/2025 11:46 AM [facility] LABAnion Byv904 - 15 mmol/L08/07/2025 11:46 AM EDTR[facility] LABEstimated Glomerular Filtration Rate42(L)>=60 mL/min/1.73m 08/07/2025 11:46 AM [facility] LABComment:Estimated Glomerular Filtration Rate (eGFR) is [...] VolumeCollection TimeReceived TimeBloodBLOOD SPECIMEN / UnknownVenipuncture / Danfipy4608/07/2025 10:15 AM EDT08/07/2025 10:15 AM EDT Narrative Authorizing ProviderResult TypeResult StatusMinvera Balderas PA-CLABORATORYFinal ResultPerforming OrganizationAddressCity/State/ZIP CodePhone Number [facility] [address] [place] [address] * (ABNORMAL) COMPLETE BLOOD COUNT AND DIFFERENTIAL (08/07/2025 10:15 AM EDT) ComponentValueRef RangeTest MethodAnalysis TimePerformed AtPathologist SignatureWBC5.853.70 - 11.00 k/uL08/07/2025 10:24 AM EDTR[facility] LABRBC3.63(L)3.90 - 5.20 m/uL08/07/2025 10:24 AM [facility] JOIWanboabxea90.6(L)11.5 - 15.5 g/dL08/07/2025 10:[address] [facility] [address] CEQPysgeecdwh94.1(L)36.0 - 46.0 % 08/07/2025 10:24 AM [facility] ESNJLA72.480.0 - 100.0 fL08/07/2025 10:[address] [facility] PXIZBN41.2 26.0 - 34.0 pg08/07/2025 10:24 AM EDTNOCHESTN[facility] LABMCHC 33.030.5 - 36.0 g/dL08/07/2025 10:24 AM [facility] LABRDW-CV15.9(H)11.5 - 15.0 %08/07/2025 10:24 AM [facility] LABPlatelet Wknsg540(L)150 - 400 k/uL08/07/2025 10:24 AM [facility] LABMPV9.29.0 - 12.7 fL08/07/2025 10:24 AM [facility] LABNeutrophils %66.5%08/07/2025 10:24 AM [facility] LABAbs Neut3.891.45 - 7.50 k/uL08/07/2025 10:24 AM EDT [facility] LABLymphocytes %23.8%08/07/2025 10:24 AM EDT [facility] LABAbs Lymph1.391.00 - 4.00 k/uL08/07/2025 10:24 AM [facility] LABMonocytes %6.0%08/07/2025 10:24 AM [facility] LABAbs Mono0.35<0.87 k/uL 08/07/2025 10:24 AM [facility] LABEosinophils %3.1% 08/07/2025 10:24 AM [facility] LABAbs Eosin0.18<0.46 k/08/07/2025 10:24 AM [facility] LABBasophils %0.3 %08/07/2025 10:24 AM [facility] LABAbs Baso<0.03 <0.11 k/08/07/2025 10:24 AM [facility]TNOCHESTN[facility] LABImmature Granulocytes %0.3%08/07/2025 10:24 AM [facility] Abs Immature Gran<0.03<0.10 /08/07/2025 10:24 AM [facility] LABNRBC0.0/100 WBC08/07/2025 10:24 AM [facility] LABAbsolute nRBC<0.01<0.01 k/08/07/2025 10:24 AM [facility] LABDiff RazsJsjw31/22/2025 10:24 AM [facility] LABSpecimen (Source)Anatomical Location / Laterality Collection Method / VolumeCollection TimeReceived TimeBloodBLOOD SPECIMEN / UnknownVenipuncture / Gifokjh6408/07/2025 10:15 AM EDT08/07/2025 10:15 AM EDT Narrative Authorizing ProviderResult TypeResult StatusMinvera Balderas PA-CLABORATORYFinal ResultPerforming OrganizationAddressCity/State/ZIP CodePhone Number [facility] [address] [place] [address] from Last 3 Months Insurance Care Teams Team MemberRelationshipSpecialtyStart DateEnd Date Nisa Shepherd, DIRECTOR DATABASE [address] [place] [address] [place] [address] [facility] - [facility]22
--- OUTSIDE RECORDS SUMMARY | 2025-10-18 10:19 | XMS_ITS | CCD ---
Author Organization [facility] Care Team Providers Care Outreach Analyst Name Role Phone Vinay Matta Primary Care Provider [phone] Bunting, Vinay Attending Provider [phone] VINAY MATTA R Primary Care Physician Bunting, DO Vinay Primary Care Provider Bunting, DO Vinay Attending Provider Bunting, DO Vinay Referring Provider Self, Referral Attending Provider Unavailable Bunting, DO Vinay Primary Care Provider Bunting, DO Vinay Attending Provider TROY Yusuf Emergency Provider TROY Yusuf Attending Provider [facility] Primary Care Provider Ruth [employer] WORKER, [facility] Primary Care Provider Bunting, DO Vinay Primary Care Provider TROY Yusuf Emergency Provider [phone] TROY Yusuf Attending Provider Bunting, DO Vinay Attending Provider STARR Delcid Attending Provider [phone] Anh Delcid Unavailable Bunting, DO Vinay Primary Care Provider MD Rafael Edouard Attending Provider Bunting, DO Vinay Primary Care Provider Edouard, MD Rafael Attending Provider Bunting, DO Vinay Attending Provider MD Anthony Rose Emergency Provider MD Kimberly Arteaga Admit Provider MD Kimberly Arteaga Attending Provider [phone] DO Krissy Easton Other Provider Conner [facility] Attending Provider [phone] BUNTING, DR MCLEAN Admitting Unavailable BUNTING, DR [...] Bunting, DO Mclean Primary Care Provider [phone] Bunting, DO Vinay Attending Provider Bunting, DO Vinay Primary Care Provider Bunting, DO Vinay Attending Provider STARR Delcid Anh Attending Provider Bunting, DO Vinay Primary Care Provider [phone] Bunting, DO Vinay Attending Provider [facility] Primary Care Provider Bunting, DO Vinay Primary Care Provider MD Marilyn Stewart Attending Provider Bunting, DO Vinay R Other Provider [phone] DO Bakari Barboza M Emergency Provider MD Comfort Monteiro Admit Provider [phone] MD Comfort Monteiro Attending Provider KapDO Ottoniel linton M Other Provider Bunting, Vinay R Primary Care Provider Trae Mccarty MD Unavailable Bunting, DO Vinay Primary Care Provider [phone] Tamra DO Villegas M Emergency Provider MD Comfort Monteiro Admit Provider MD Comfort Monteiro Attending Provider [phone] KapDO Ottoniel linton M Other Provider Bunting, DO Vinay Attending Provider Ruth FERMIN, [facility]. Primary Care Provider Bunting DO, Vinay Primary Care Provider Bunting DO, Vinay Attending Provider Conner CLEMENTS-C, Queta Benavides Attending Provider Bunting DO, Vinay Primary Care Provider [phone] Bunting DO, Vinay Attending Provider Marilyn Stewart MD Referring Provider [phone] Bunting DO, Vinay Referring Provider Self, Referral [...] Unavailable Bunting DO, Vinay Primary Care Provider [phone] Verónica Ugarte MD Attending Provider Verónica Ugarte MD Referring Provider [phone] TAMMY SALDIVAR Attending Unavailable TAMMY SALDIVAR Attending [...] FacilityAcetaminophen / Codeine (1 source)Acetaminophen / CodeineDrug Qccvqlk56-91-7467Tvmdn: See Comments [facility] SystemOpioid Agonists (1 source)CodeineDrug Kqamqyi32-86-1796Hqtxn: See CommentsUniversity Hospitals Health System (20 sources)Acetaminophen / Codeine; Translations: [acetaminophen-codeine]Drug Bllhvlc55-60-5000Xxxnh stomach (finding), Other: See CommentsMer[facility] Comment on above:pt states she is unwilling to try even plain tylenol after this experience even though she states she took tylenol prior to this and had no problems (20 sources)Codeine; Translations: [codeine]Drug Vghjobe64-14-6867Dtyyt: See Comments, [facility]Mer[facility] (4 sources)Acetaminophen / Codeine; Translations: [Tylenol with Codeine #3]Drug AllergyUnknowSouthern [facility] Repository (1 source)traMADolDrug AllergyThe [facility] Repository (20 sources)Acetaminophen; Translations: [acetaminophen]Drug Keusexf86-51-3127 Not allergic [address] tylenolMer[facility] (14 sources)Acetaminophen / Codeine; Translations: [ACETAMINOPHEN-CODEINE]Drug Mpipjlg79-34-7708RyysfFWUS Healthcare Medications Current Medications MedicationDrug Class(es)DatesSig (Normalized)Sig (Original)[id number] 200 actuat albuterol 0.09 mg/actuat metered dose inhaler (20 sources)beta2-Adrenergic AgonistStart: 84-03-0144pgwrkqtbx HFA (PROVENTIL HFA, VENTOLIN HFA) 90 mcg/actuation inhaler 10/12/2023 ActiveStart: 10-12-2023 take 2 puff(s) by mouth every four hours as needed for coughalbuterol HFA (PROVENTIL HFA, VENTOLIN HFA) 90 mcg/actuation inhaler INHALE 2 PUFFS BY MOUTH EVERY 4 HOURS NEEDED FOR COUGH 10/12/2023 ActiveStart: 07-51-9043ctnr 1 puff(s) by inhalation every four to six hoursAlbuterol Sulfate Active 1 PUFF INHALATION EVERY 4-6 HOURS December 26, 2017 2:57pmStart: 75-13-0174avib 1 puff(s) by inhalation every four to six hoursAlbuterol Sulfate Active 1 PUFF INHALATION EVERY 4-6 HOURS December 26, 2017 12:00amStart: 12-26-2017 End: 51-24-5593yesl 1 puff(s) by inhalation every four to six hours as needed for wheezingAlbuterol Sulfate 90 mcg/actuation Hfa Aerosol Inhaler Discontinued 1 PUFF INHALATION EVERY 4-6 HOURS as needed for Shortness Of Breath Or Wheezing December 26, 2017 1:00am March 11, 2023 5:40pmStart: 12-26-2017 End: 30-42-6541lptz 1 puff(s) by inhalation every four to six hoursAlbuterol Sulfate Discontinued 1 PUFF INHALATION EVERY 4-6 HOURS December 26, 2017 12:00am March 11, 2023 4:40pmStart: 12-26-2017 End: 61-01-9509ambd 1 puff(s) by inhalation every four to six hoursAlbuterol Sulfate Discontinued 1 PUFF INHALATION EVERY 4-6 HOURS December 26, 2017 1:00am March 11, 2023 5:40pmStart: 00-54-9746buco 1 puff(s) by inhalation every four to six hoursAlbuterol Sulfate Active 1 PUFF INHALATION EVERY 4-6 HOURS December 26, 2017 12:00amComment on above:INHALE 2 PUFFS BY MOUTH EVERY 4 HOURS NEEDED FOR COUGHallopurinol 300 mg oral tablet (20 sources)Xanthine Oxidase InhibitorStart: 40-97-6683zotk 1 tablet by mouth once dailyAllopurinol 300 mg tablet Active 300 MG PO Daily May 11, 2024 12:00am Complies with drug therapyStart: 01-21-2022 End: 38-73-0020isep 1 tablet by mouth twice dailyAllopurinol 100 mg tablet Discontinued 100 MG PO Twice daily December 29, 2022 1:00am May 11, 2024 11:49am End: 64-74-8649jzfb 1 tablet by mouth once dailyallopurinol (ZYLOPRIM) 100 mg tablet Take 100 mg by mouth once daily. 07/15/2024 DiscontinuedComment on above: Take 100 mg by mouth once daily.amoxicillin 875 mg / clavulanate 125 mg oral tablet (6 sources)Penicillin-class AntibacterialStart: 73-05-0771vrefyghqkqm- clavulanate potassium (AUGMENTIN) 875-125 mg per tablet 01/02/2025 ActiveStart: 81-52-5146rryy 1 tablet by mouth every twelve hoursAmoxicillin-Pot [...] sources)Platelet Aggregation Inhibitor, Nonsteroidal Anti-inflammatory Drug Start: 68-12-7644zvey 1 tablet by mouth once dailyAspirin 81 mg Tablet Active 81 MG PO Daily March 11, 2023 12:00am Complies with drug therapyStart: 84-91-9853xtro 1 tablet by mouth once dailyaspirin 81 mg Oral EC Tab 81 mg = 1 tab(s), Oral, Daily, # 30 tab(s), Refills(s) 0, [facility]: [facility], 165, cm, 01/19/22 22:12:00 EST, Height/Length Dosing, 90, kg, 01/19/22 22:12:00 EST, Weight Dosing Start Date: 01/21/22 Status: Ordered Quantity: 30.0 Unit: tab(s) Repeat number: 1Comment on above:Take 81 mg by mouth once daily. atenolol 50 mg oral tablet (20 sources)beta-Adrenergic BlockerStart: 47-70-6544efdh 1 tablet by mouth once dailyAtenolol 50 mg Tablet Active 50 MG PO Daily December 26, 2017 1:00am Complies with drug therapyAtenolol ActiveComment on above:Take 50 mg by mouth once daily.atorvastatin 20 mg oral tablet (20 sources)HMG-CoA Reductase InhibitorStart: 32-45-1457tiwe 1 tablet by mouth once dailyAtorvastatin 20 mg Tablet Active 20 MG PO Daily December 26, 2017 1:00am Complies with drug therapyAtorvastatin Calcium ActiveComment on above: Take 20 mg by mouth once daily.baclofen 10 mg oral tablet (11 sources)gamma-Aminobutyric Acid-ergic AgonistStart: 53-00-3664acbs 5 mg by mouth once daily at bedtimeBaclofen 10 mg tablet Active 5 MG PO Daily at bedtime July 05, 2025 12:00am Complies with drug therapyStart: 27-11-0431fgsb 5 mg by mouth once dailybaclofen 10 mg tablet Take 5 mg by mouth once daily. 03/30/2025 ActiveStart: 33-30-3677guquchxg 10 mg Tab Refills(s) 0 Start Date: 03/30/25 Status: Ordered Repeat number: 1Biotin (2 sources)Biotin Activecalcium ascorbate 500 mg oral tablet (16 sources)Start: 00-20-4563tsln 1 tablet by mouth once dailyAscorbate Calcium (Vitamin C) 500 mg tablet Active 500 MG PO Daily May 11, 2024 12:00am Complieswith drug therapycholecalciferol 0.025 mg oral capsule (20 sources)Vitamin DStart: 85-44-7137emmw 1 capsule by mouth once daily Cholecalciferol (Vitamin D3) (Vitamin D3) 25 mcg (1,000 unit) capsule Active 25 MCG PO Daily July 21, 2024 12:00am Complies with drug therapyStart: 05-11-2024 End: 38-98-9256zbps 1 capsule by mouth once dailyCholecalciferol (Vitamin D3) 125 mcg (5,000 unit) capsule Discontinued 125 MCG PO Daily May 11, 2024 12:00am July 21, 2024 12:26pmStart: 24-14-1537bjbx 1 tablet by mouth once dailycholecalciferol 1000 intl units oral tablet 25 mcg = 1 tab(s), Oral, Daily, Prophylaxis Start Date:01/20/22 Status: Ordered Repeat number: 1Start: 01-20-2022 take 1 tablet by mouth once dailycholecalciferol 1000 intl units oral tablet 25 mcg = 1 tab(s), Oral, Daily, Prophylaxis Start Date:01/20/22 Status: OrderedStart: 55-58-2882wmhb 1 tablet by mouth once dailycholecalciferol 1000 intl units oral tablet 25 mcg = 1 tab(s), Oral, Daily Start Date: 01/20/22 Status: Orderedtake 1 tablet by mouth in the morningcholecalciferol (Vitamin D-3) 25 MCG (1000 UT) tablet Take 1,000 Units by mouth in the morning. ActiveComment on above:Take 1,000 Units by mouth once daily.diphenhydrAMINE hydrochloride 12.5 mg chewable tablet (12 sources)Histamine-1 Receptor AntagonistStart: 19-64-0649whpxemqqbpWFQOO HCl (CHILDREN'S BENADRYL ALLERGY) 12.5 mg chewable tablet 25 mg. 09/29/2024 Active Fluzone High-Dose Quadrivalent syringe (13 sources)Start: 99-17-3186Crkemto High-Dose Quadrivalent syringe Inject 0.7 mL into the shoulder, thigh, or buttocks 1 (one) time 11/25/2023 Active glimepiride 2 mg oral tablet (20 sources)SulfonylureaStart: 46-86-8548agow 1 tablet by mouth twice daily Glimepiride 2 mg Tablet Active 2 MG PO Twice daily December 26, 2017 1:00am Complies with drug therapyStart: 58-57-6695khbf 2 mg by mouth once daily in the morningGlimepiride Active 2 MG PO Every morning December 26, 2017 12:00am Glimepiride ActiveComment on above:Take 2 mg by mouth daily with breakfast. hydroCHLOROthiazide 12.5 mg / lisinopril 20 mg oral tablet (20 sources)Thiazide Diuretic, Angiotensin Converting Enzyme InhibitorStart: 25-27-3228hlgo 1 tablet by mouth once dailyLisinopril-Hydrochlorothiazide 20- 12.5 mg Tablet Active 1 TAB PO Daily December 26, 2017 1:00am Complies with drug therapytake 10-12.5 mg by mouth oncelisinopril-hydroCHLOROthiazide (PRINZIDE,ZESTORETIC) 10-12.5 mg per tablet Take 1 tablet by mouth once daily. ActiveLisinopril-hydroCHLOROthiazide ActiveComment on above:Take 1 tablet by mouth once daily.loratadine 10 mg oral tablet (5 sources)Start: 22-88-8072hard 1 tablet by mouth once dailyLoratadine (Claritin) 10 mg tablet Active 10 MG PO Daily July 24, 2025 12:00am Complies with drug therapyStart: 96-88-9460Eumqypjd Daily, Takes due too itching from [place], Refills(s) 0 Start Date: 03/30/25 Status: Ordered Repeat number: 1loratadine (CLARITIN) 5 mg/5 mL syrup Take 5 mg by mouth as needed for cold/allergy symptoms. ActiveMagnesium (4 sources)Start: 79-43-0068Lacjdizsi Magnesium Start Date: 03/28/24 Status: Ordered Repeat number: 1Start: 15-28-6667Twrrupzuk Magnesium Start Date: 03/28/24 Status: Orderedmagnesium oxide 400 mg oral tablet (20 sources)Start: 30-55-0280vpak 1 tablet by mouth twice dailyMagnesium Oxide 400 mg magnesium tablet Active 400 MG PO Twice daily May 11, 2024 12:00am Complies with drug therapyStart: 60-51-1836rggg 1 tablet by mouth once daily magnesium oxide 400 mg magnesium tab Take 1 tablet by mouth once daily. 02/03/2023 ActiveStart: 63-29-7296lmva 1 tablet by mouth once dailyMAGNESIUM OXIDE ORAL Take 1 tablet by mouth once daily. 0 02/03/2023 ActiveComment on above:Take 1 tablet by mouth twice daily.Take 1 tablet by mouth once daily. omeprazole 20 mg delayed release oral capsule (20 sources)Proton Pump InhibitorStart: 82-43-5840szku 1 capsule by mouth once dailyOmeprazole 20 mg capsule,delayed release(DR/EC) Active 20 MG PO Daily May 11, 2024 12:00am Complies with drug therapyStart: 12-26-2017 End: 65-02-0084ptvs 1 tablet by mouth once dailyOmeprazole Magnesium (Prilosec Otc) 20 mg Tablet,Delayed Release (Dr/Ec) Discontinued 20 MG PO Daily December 26, 2017 1:00am May 11, 2024 11:53amPriLOSEC ActiveComment on above:Take 20 mg by mouth once daily.pioglitazone 15 mg oral tablet (13 sources)Peroxisome Proliferator Receptor alpha Agonist, Peroxisome Proliferator Receptor gamma Agonist, ThiazolidinedioneStart: 71-92-1437awgr 1 tablet by mouth once dailyPioglitazone 15 mg tablet Active 15 MG PO Daily July 05, 2025 12:00am Complies with drug therapyPrenatal (2 sources) ActiveResmetirom (16 sources)Start: 96-70-0408trej 1 tablet by mouth once dailyResmetirom (Rezdiffra) 80 mg tablet Active 80 MG PO Daily May 11, 2024 12:00am Complies with drug therapyStart: 35-34-6363fhcc 1 tablet by mouth once dailyStart: 77-61-8499hvyp 1 tablet by mouth once dailyResmetirom (Rezdiffra) 80 mg tablet Active 80 MG PO Daily May 10, 2024 11:00pmStart: 49-25-1376vwdo 1 tablet by mouth once dailyResmetirom (Rezdiffra) 80 mg tablet Active 80 MG PO Daily May 11, 2024 12:00amresmetirom (REZDIFFRA) 80 mg tablet (9 sources)Start: 58-78-3653gfrujxveti (REZDIFFRA) 80 mg tablet once daily. 05/11/2024 Activeresmetirom 80 MG Oral Tablet [Rezdiffra] (3 sources)Start: 66-14-9423Dncdmledn 80 mg oral tablet Refills(s) 0 Start Date: 09/29/24 Status: Ordered Repeat number: 1Start: 48-58-9101Lorwofajy 80 mg oral tablet Refills(s) 0 Start Date: 09/29/24 Status: OrderedrOPINIRole 2 mg oral tablet (20 sources)Nonergot Dopamine AgonistStart: 12-29-2022 End: 09-71-0561dnvm 1 tablet by mouth once daily at bedtimeRopinirole 2 mg tablet Active 2 MG PO Daily at bedtime May 11, 2024 12:00am Complies with drug therapyStart: 87-69-7342otud 2 tablets by mouth at bedtimeropinirole 0.5 [...] oral tablet (20 sources)Dipeptidyl Peptidase 4 InhibitorStart: 94-16-2195vrin 1 tablet by mouth once dailySitagliptin Phosphate (Januvia) 50 mg tablet Active 50 MG PO Daily May 11, 2024 12:00am Complieswith drug therapyComment on above:Take 1 tablet by mouth every afternoon.vit B complex no.12/niacin,B3, (VITAMIN B COMPLEX NO.12-NIACIN ORAL) (1 source)vit B complex no.12/niacin,B3, (VITAMIN B COMPLEX NO.12-NIACIN ORAL) Vitamin B 12 Activevitamin B12 (20 sources)Vitamin H81Cvyei: 89-68-8924Stiocid B12 Refills(s) 0 Start Date: 04/15/23 Status: Ordered Repeat number: 1Start: 19-16-1992Ysxjvrl B12 Refills(s) 0 Start Date: 04/15/23 Status: OrderedStart: 36-94-6925dqfz 1 tablet by mouth once dailyCyanocobalamin (Vitamin B-12) (Vitamin B-12) 1,000 mcg Tablet Active 1000 MCG PO Daily March 13, 2023 12:00am Complies with drug therapyStart: 03-11-2023 End: 30-52-5314zvyj 1 tablet by mouth once dailyCyanocobalamin (Vitamin B-12) (Vitamin B-12) 50 mcg Tablet Discontinued 50 MCG PO Daily February 12:00am March 13, 2023 9:52amVitamin D3 (2 sources)Vitamin D3 Active Completed/Discontinued Medications MedicationDrug Class(es)DatesSig (Normalized)Sig (Original)Albuterol Sulfate 90 mcg/actuation Hfa Aerosol Inhaler (5 sources)Start: 12-26-2017 End: 32-09-8889uutu 1 puff(s) by inhalation every four to six hours as needed for wheezingAlbuterol Sulfate 90 mcg/actuation Hfa Aerosol Inhaler Discontinued 1 PUFF INHALATION EVERY 4-6 HOURS as needed for Shortness Of Breath Or Wheezing December 26, 2017 1:00am March 11, 2023 5:40pmStart: 12-26-2017 End: 33-28-9611qbqv 1 puff(s) by inhalation every four to six hours as needed for wheezingAlbuterol Sulfate 90 mcg/actuation Hfa Aerosol Inhaler Discontinued 1 PUFF INHALATION EVERY 4-6 HOURS as needed for Shortness Of Breath Or Wheezing December 26, 2017 12:00am March 11, 2023 4:40pmascorbic acid 500 mg oral tablet (20 sources)Vitamin CStart: 01-20-2022 End: 43-56-6594fmwn 1 tablet by mouth once dailyAscorbic Acid (Vitamin C) (Vitamin C) 500 mg Tablet Discontinued 500 MG PO Daily March 11, 2023 12:00am May 11, 2024 11:48amVitamin C Activebenzonatate 200 mg oral capsule (20 sources)Non-narcotic AntitussiveStart: 12-26-2017 End: 25-51-4386dnaf 1 capsule by mouth twice daily as needed for cough Benzonatate 200 mg Capsule Discontinued 200 MG PO Twice daily as needed for Cough December 26, 2017 1:00am December 29, 2022 2:19pmcalcium carbonate 250 mg / magnesium carbonate 300 mg oral tablet (20 sources)Start: 02-04-2023 End: 55-13-5829Itvordy Carb-Magnesium Carb 250-300 mg tab Take by mouth. 02/04/2023 07/15/2024 DiscontinuedStart: 79-34-9235OdpakNsqr 300 oral tablet 1 tab(s), Oral, Daily, 150 tab(s), Refill(s) 0, [facility], 160, cm, 12/24/22 10:14:00 EST, Height/Length Dosing, 97.2, kg, 12/24/22 10:14:00 EST, Weight Dosing Start Date: 02/04/23 Status: Ordered Quantity: 150.0 Unit: tab(s) Repeat number: 1Comment on above:Take by mouth.cefdinir 300 mg oral capsule (20 sources)Cephalosporin AntibacterialStart: 12-26-2017 End: 38-07-3909saqh 1 capsule by mouth every twelve hoursCefdinir 300 mg Capsule Discontinued 300 MG PO Q12H December 26, 2017 1:00am December 29, 2022 2 :20pmCefdinir Not-Takingcephalexin 500 mg oral capsule (20 sources)Cephalosporin AntibacterialStart: 03-13-2023 End: 86-13-9078joms 1 capsule by mouth twice dailyCephalexin 500 mg capsule Discontinued 500 MG PO Twice daily 10 March 13, 2023 12:00am May 11, 2024 11:48amStart: 07-22-2022 End: 89-22-3924zmtd 1 capsule by mouth every eight hoursCephalexin 500 mg capsule Discontinued 500 MG PO Q8H 05 06July 22, 2022 12:00am December 29, 2022 2:20pmcodeine phosphate 2 mg/ml / promethazine hydrochloride 1.25 mg/ml oral solution (20 sources)Opioid Agonist, PhenothiazineStart: 12-26-2017 End: 57-42-1264mmnv 1 mL by mouth every four hours as needed for cough Promethazine-Codeine 6.25-10 mg/5 mL Syrup Discontinued 5 ML PO Q4H as needed for Cough 120 December 26, 2017 1:00am December 29, 2022 2:21pmdapagliflozin 10 mg oral tablet (20 sources)Sodium-Glucose Cotransporter 2 InhibitorStart: 07-06-2024 End: 70-30-8592ewcw 1 tablet by mouth once dailyDapagliflozin Propanediol (Farxiga) 10 mg tablet Discontinued 10 MG PO Daily July 21, 2024 12:00am December 27, 2024 3:21pm On Hold: Hold until seen by PCP. discuss alternative therapydiclofenac sodium 75 mg delayed release oral tablet (20 sources)Nonsteroidal Anti-inflammatory DrugStart: 12-29-2022 End: 45-54-4538gcft 1 tablet by mouth twice dailyDiclofenac Sodium 75 mg tablet,delayed release (DR/EC) Discontinued 75 MG PO Twice daily December 29, 2022 1:00am March 13, 2023 9:47amStart: 04-23-2022 End: 47-76-2522lkzi 1 tablet by mouth once dailydiclofenac sodium 75 mg Oral EC Tab 75 mg = 1 tab(s), Oral, Daily, Refills(s) 0, Pain Start Date: 04/23/22 Status: OrderedStart: 04-93-1940hvqppxggjy sodium 75 mg Oral EC Tab Refills(s) 0 Start Date: 04/23/22 Status: OrderedComment on above:Take 75 mg by mouth once daily. doxycycline monohydrate 100 mg oral capsule (20 sources)Tetracycline-class DrugStart: 12-26-2017 End: 96-34-1835luim 1 capsule by mouth twice dailyDoxycycline Monohydrate 100 mg Capsule Discontinued 100 MG PO Twice daily December 26, 2017 1:00am December 29, 2022 2:20pmergocalciferol 0.2 mg/ml oral solution (20 sources)Provitamin D2 CompoundStart: 03-11-2023 End: 35-85-8787oqok 200 ug by mouth once dailyErgocalciferol (Vitamin D2) 200 mcg/mL (8,000 unit/mL) Drops Discontinued 200 MCG PO Daily March 11, 2023 12:00am May 11, 2024 11:46amferrous sulfate 325 mg oral tablet (3 sources) End: 88-57-0673yeqbxzn sulfate 325 mg (65 mg iron) tablet Take 325 mg by mouth. 0 07/24/2023 DiscontinuedComment on above:Take 325 mg by mouth.fluticasone propionate 0.05 mg/actuat metered dose nasal spray (20 sources)CorticosteroidStart: 24-08-1841bufs 1 spray(s) nasal route once dailyFluticasone Propionate 50 MCG/ACT 1 spray in each nostril Nasally Once a day for 21 days Feb, Not-TakingStart: 12-26-2017 End: 59-14-5630Hambnnxdpmy Propionate 50 mcg/actuation [place],Suspension Discontinued 1 SPRAY INTRANASAL Daily December 26, 2017 1:00am December 29, 2022 2:20pmfurosemide 20 mg oral tablet (20 sources)Loop DiureticStart: 09-02-2022 End: 31-42-5282pzwc 1 tablet by mouth once daily in the morningFurosemide 20 mg tablet Discontinued 20 MG PO Every morning December 29, 2022 1:00am December 27, 2024 3:21pm On Hold: Continue to hold, follow-up with PCP to restart Comment on above:Take 20 mg by mouth once daily.gabapentin 300 mg oral capsule (20 sources)Anti-epileptic AgentStart: 03-29-2024 End: 07-41-8522obxt 1 capsule by mouth three times dailyGabapentin 300 mg capsule Active 300 MG PO Three times daily December 27, 2024 3:21pm Complies with drug therapyStart: 03-29-2024 End: 50-90-0829fpxu 1 capsule by mouth twice daily, then take 2 capsules by mouth at bedtimeGabapentin 300 mg capsule Discontinued 300 MG PO Twice daily May 11, 2024 11:50am December 3:23pm takes 1 in the afternoon and 2 before bedtimeStart: 12-26-2017 End: 45-32-1686arby 3 capsules by mouth at bedtimeGabapentin 300 mg Capsule Discontinued 900 MG PO Bedtime December 26, 2017 1:00am May 111:53am Start: 12-26-2017 End: 99-55-7181zmur 900 mg by mouth at bedtimeGabapentin Discontinued 900 MG PO Bedtime December 26, 2017 12:00am May 11, 2024 10:53amStart: 25-14-1675upvr 300 mg by mouth three times dailyGabapentin Active 300 MG PO Three times daily December 26, 2017 12:00amtake 1 capsule by mouth once daily at bedtime gabapentin (NEURONTIN) 300 mg capsule Take 300 mg by mouth daily at bedtime. ActiveGabapentin ActiveComment on above:Take 300 mg by mouth daily at bedtime. Honey (Medihoney (Honey)) 100 % paste (20 sources)Start: 12-29-2022 End: 29-24-6817Zmoxe (Medihoney (Honey)) 100 % paste Discontinued 1 APPLIC TOPICAL Twice daily December 292:00am March 11, 2023 4:44pmStart: 12-29-2022 End: 75-26-4495Nxjdq (Medihoney (Honey)) 100 % paste Discontinued 1 APPLIC TOPICAL Twice daily December 29:00am March 11, 2023 5:44pmStart: 02-67-1723Tifip (Medihoney (Honey)) 100 % paste Active 1 APPLIC TOPICAL Twice daily December 29, 2022 12:00amMEDIHONEY, HONEY, 100 % pste (19 sources)Start: 12-01-2022 End: 88-54-2198RJCIOIJLP, HONEY, 100 % pste APPLY A THIN LAYER TWICE DAILY 12/01/2022 07/15/2024 DiscontinuedStart: 70-86-9089XKNEBFQRQ, HONEY, 100 % pste APPLY A THIN LAYER TWICE DAILY 0 12/01/2022 ActiveComment on above:APPLY A THIN LAYER TWICE DAILYmetFORMIN hydrochloride 1000 mg oral tablet (20 sources)BiguanideStart: 12-26-2017 End: 52-63-5590xwad 1 tablet by mouth twice dailyMetformin 1,000 mg Tablet Discontinued 1000 MG PO Twice daily December 26, 2017 1:00am July 22, 2024 1:23pm End: 81-08-7942bohh 1000 mg by mouth once dailymetformin HCl (METFORMIN ORAL) Take 1,000 mg by mouth once daily. 07/15/2024 DiscontinuedmetFORMIN HCl Active Comment on above:Take 1,000 mg by mouth once daily.Omeprazole Magnesium (Prilosec Otc) 20 mg Tablet,Delayed Release (Dr/Ec) (17 sources)Start: 12-26-2017 End: 11-42-1222wybg 1 tablet by mouth once dailyOmeprazole Magnesium (Prilosec Otc) 20 mg Tablet,Delayed Release (Dr/Ec) Discontinued 20 MG PO Daily December 26, 2017 12:00am May 11, 2024 10:53amStart: 12-26-2017 End: 36-64-8223yals 1 tablet by mouth once dailyOmeprazole Magnesium (Prilosec Otc) 20 mg Tablet,Delayed Release (Dr/Ec) Discontinued 20 MG PO Daily December 26, 2017 1:00am May 11, 2024 11:53amStart: 82-87-5124kaeu 1 tablet by mouth once dailyOmeprazole Magnesium (Prilosec Otc) 20 mg Tablet,Delayed Release (Dr/Ec) Active 20 MG PO Daily December 26, 2017 1:00amStart: 06-50-7385rkua 1 tablet by mouth once dailyOmeprazole Magnesium (Prilosec Otc) 20 mg Tablet,Delayed Release (Dr/Ec) Active 20 MG PO Daily December 26, 2017 12:00am predniSONE 20 mg oral tablet (2 sources)Start: 10-20-2023 End: 65-37-1431tzzd 2 tablets by mouth once daily, then [...] valgus; Translations: [Hallux valgus (acquired), right foot]Onset: 379222-62-5953NiabtirJgbuc and unspecified renal failure (20 sources)Injury of kidney; Translations: [Acute kidney failure, unspecified] Onset: 871879-35-4519IuvtbmgjFmlzh bronchitis (20 sources)Acute bronchitis; Translations: [Acute bronchitis, unspecified] 23-62-7518FhxrxjojMllgm cerebrovascular disease (2 sources)Lacunar infarction; Translations: [Other cerebral infarction due to occlusion or stenosis of small artery]09-95-9340YtcpaytVqbt and rectal conditions (14 sources)Rectal lxinv43-54-1392MnbsrdobVyrpdxq kidney disease (20 sources)Chronic kidney disease stage 3; Translations: [Stage 3 chronic kidney disease]Onset: 656024-37-3219VniuspnPhkskie kidney disease (2 sources)Chronic kidney disease; Translations: [Chronic kidney disease, stage 3 unspecified]Onset: 53-70-3481Tfvfvexftcl and hemorrhagic disorders (4 sources)Thrombocytopenic disorder; Translations: [Thrombocytopenia, unspecified]Onset: 165232-19-8808QtvqeizJjgrpnanqj and other anemia (2 sources)Anemia due to chronic blood loss; Translations: [Iron deficiency anemia secondary to blood loss (chronic)]Onset: 29-49-9685LicmkvwCksapxuuvr and other anemia (17 sources)Anemia due to blood dick02-45-9843IwndafeNkcmxgyksr and other anemia (20 sources)Iron deficiency anemia due to blood loss; Translations: [Iron deficiency anemia secondary to blood loss (chronic)]Onset: 57-13-0103Yfwmdns Deficiency and other anemia (4 sources)Iron deficiency anemia secondary to blood loss (chronic); Translations: [IRON DEFIC ANEMIA SEC BLD LOSS CHRN]Onset: 04-02-2975Jrrlzbn Deficiency and other anemia (1 source)Anemia; Translations: [Anemia in stage 3a chronic kidney disease (HCC)]51-69-3332SywmzvoIbufhusqcx and other anemia (2 sources)Anemia in chronic kidney disease; Translations: [Anemia in chronic kidney disease]Onset: 69-88-7906OafwcjiCmhbpchjce and other anemia (20 sources)Anemia; Translations: [Anemia, unspecified]Onset: 01-20-2022 00-35-8644DmvdkghyNtcufwnegz and other anemia (6 sources)Iron deficiency anemia secondary to inadequate dietary iron intake; Translations: [Other iron deficiency anemias]EpisodicDeficiency and other anemia (6 sources)Iron deficiency anemia; Translations: [Iron deficiency anemia, unspecified]62-06-0134PyutlontAucexnofwr and other anemia (1 source)Deficiency and other anemia; Translations: [Anemia in stage 3a chronic kidney disease (HCC)]Onset: 95-69-6282Wcgbbesv mellitus with complications (20 sources)Type 2 diabetes mellitus with diabetic chronic kidney disease; Translations: [Type 2 diabetes mellitus]Onset: 54-33-8184SeetnbrHtlcvlts mellitus without complication (20 sources)Type 2 diabetes mellitus without complication; Translations: [Type 2 diabetes mellitus without complications]Onset: 31-72-4974CbrunvyGcmfdofqx of lipid metabolism (20 sources)Hyperlipidemia; Translations: [Hyperlipidemia, unspecified]Onset: 225478-90-5774CdtyyyjDbsebeisulmcbs and diverticulitis (14 sources)Diverticular mryhplw87-78-7970CooesbcItpinmbqgt disorders (20 sources)Gastroesophageal reflux disease without esophagitis; Translations: [Gastro-esophageal reflux disease without esophagitis]Onset: 44-20-4851Dlrdgfw Essential hypertension (20 sources)Essential hypertension; Translations: [Essential (primary) hypertension]Onset: 654598-48-9093NhznufsRorckchagbw (14 sources)Ldlhctfhiye45-98-2898XrxznlxsOszljtjqw (1 source)Nonalcoholic steatohepatitis; Translations: [Nonalcoholic steatohepatitis (ALFONSO)]Onset: 98-43-8741DotosodLdyqfcsnolog with complications and secondary hypertension (20 sources)Hypertensive urgency ; Translations: [Hypertensive urgency]Onset: 725452-98-3820IhtlxaiHlxz disorders (13 sources)Depressive disorder; Translations: [Depressive disorder]Onset: 538733-47-5294FnruzzxWakfsa and vomiting (14 sources)Nausea; Translations: [Nausea]Onset: 41-59-0828JwnfpeurXeqwiowafab deficiencies (14 sources)Vitamin B deficiency; Translations: [Deficiency of other specified B group vitamins]Onset: 39-92-5456JiurgoxzZuugd and unspecified benign neoplasm (14 sources)Gastric mcdas93-59-0580MxfjtlebSouag and unspecified benign neoplasm (13 sources)History of polyp of bbjgi71-50-0064YauvagaxBggsn diseases of kidney and ureters (19 sources)Secondary hyperparathyroidism; Translations: [Secondary hyperparathyroidism of renal origin]91-45-7162XlvxnadTnimr diseases of kidney and ureters (14 sources)Secondary hyperparathyroidism of renal origin; Translations: [Secondary hyperparathyroidism (of renal origin)]Onset: 211863-71-1325 ChronicOther ear and sense organ disorders (17 sources)Mixed conductive and sensorineural hearing loss, bilateral; Translations: [Mixed conductive and sensorineural hearing loss, bilateral]Onset: 152281-26-1266QxxneglVlvtr gastrointestinal disorders (2 sources)H/O: gastrointestinal disease; Translations: [Personal history of other diseases of the digestive system]Onset: 28-60-3748KeuqvnszMydlu hereditary and degenerative nervous system conditions (20 sources)Restless legs; Translations: [Restless legs syndrome]Onset: 916293-88-5191XorcoqlFiqmw hereditary and degenerative nervous system conditions (7 sources)Restless legs syndrome; Translations: [Restless legs syndrome (RLS)] ChronicOther inflammatory condition of skin (1 source)Pruritus of skin; Translations: [Pruritus, unspecified]Onset: 38-43-5083KkltryfkJfmje inflammatory condition of skin (5 sources)Yfmlfgy29-18-2256UexsfaoyJbuij liver diseases (13 sources)Steatosis of liver; Translations: [Fatty (change of) liver, not elsewhere classified]Onset: 57-97-6681GabvzqqZdvss liver diseases (10 sources)Hepatic fibrosis; Translations: [Hepatic fibrosis, unspecified] Onset: 18-80-0674BpegwoxZqtfs liver diseases (1 source)Fatty (change of) liver, not elsewhere classified; Translations: [Fatty (change of) liver, not elsewhere classified]Onset: 47-41-6375McotrjuDvsil liver diseases (1 source)Enzyme level - finding; Translations: [Abnormal levels of other serum enzymes]Onset: 38-50-7754EcgyqjhoEjtgu liver diseases (13 sources)Alkaline phosphatase elluty60-92-6006BctzlgkaMyegy nervous system disorders (20 sources)Polyneuropathy; Translations: [Polyneuropathy, unspecified]Onset: 661420-04-1689SiegpguZngnc nervous system disorders (13 sources)Neuropathy of lower limb; Translations: [Unspecified mononeuropathy of unspecified lower limb]Onset: 154784-81-8781EtyxqbqOmqxu nervous system disorders (13 sources)Disorder of autonomic nervous system; Translations: [Disorder of the autonomic nervous system, unspecified]Onset: 688552-21-2044SuvfwdwZjbse nervous system disorders (13 sources)Peripheral nerve disease ; Translations: [Polyneuropathy, unspecified]Onset: 401069-06-3894XtowxrrUynwt nervous system disorders (17 sources)Bilateral carpal tunnel syndrome; Translations: [Carpal tunnel syndrome, bilateral upper limbs]Onset: 853447-69-3460GotxmvaHfdaa nervous system disorders (15 sources)Carpal tunnel syndrome of right wrist; Translations: [Carpal tunnel syndrome, right upper limb]Onset: 446948-14-3335JzzgxbaFqogf nervous system disorders (20 sources)Slurred speech; Translations: [Slurred speech]45-25-3561Sewmlupw Other nervous system disorders (20 sources)Paresthesia of hand ; Translations: [Paresthesia of skin]03-11-2023 EpisodicOther nervous system disorders (2 sources)Paresthesia of skin; Translations: [Disturbance of skin sensation] 18-31-7194GuyckcbkRgigb nervous system disorders (5 sources)Slurred speech; Translations: [Other speech disturbance]03-13-2023 EpisodicOther non-traumatic joint disorders (13 sources)Arthropathy; Translations: [Arthropathy, unspecified]Onset: 851160-15-4777ZmjuzmwVianh non-traumatic joint disorders (1 source)Pain in right shoulder; Translations: [Pain in right shoulder]Onset: 59-22-0584EtmumrubWqgej nutritional; endocrine; and metabolic disorders (4 sources)Obese class II; Translations: [Body mass index (BMI) 36.0-36.9, adult]ChronicOther nutritional; endocrine; and metabolic disorders (2 sources)Body mass index 40+ - severely obese; Translations: [Body mass index (BMI) 45.0-49.9, adult]ChronicOther nutritional; endocrine; and metabolic disorders (2 sources)Body mass index (BMI) 36.0-36.9, adultChronicOther nutritional; endocrine; and metabolic disorders (20 sources)Hypomagnesemia; Translations: [Hypomagnesemia]30-39-9565ZoxbwicMtwed nutritional; endocrine; and metabolic disorders (10 sources)Metabolic syndrome X; Translations: [Metabolic syndrome]Onset: 51-67-6570OtouszhRfhau nutritional; endocrine; and metabolic disorders (2 sources)Obesity; Translations: [Other obesity due to excess calories]Onset: 49-64-3681FwffthoDgfqk nutritional; endocrine; and metabolic disorders (6 sources)Obesity caused by energy yzrpxskjp97-41-3622PoyaahvFswjj nutritional; endocrine; and metabolic disorders (9 sources)Hypomagnesemia; Translations: [Disorders of magnesium metabolism] Onset: 998480-52-5496MsaeradFefik nutritional; endocrine; and metabolic disorders (4 sources)Abnormal weight loss; Translations: [Abnormal weight loss]Onset: 26-76-5769WezkcouaRtynz nutritional; endocrine; and metabolic disorders (6 sources)Weight idyc89-67-8279IagtcjndHqzyg upper respiratory disease (2 sources)Nasal congestionEpisodicPulmonary heart disease (1 source)Pulmonary hypertension, unspecified; Translations: [PULMONARY HYPERTENSION UNSPECIFIED]Onset: 02-21-5497XjmcwkpJtbbdvpp codes; unclassified (12 sources)Obstructive sleep apnea syndrome; Translations: [Obstructive sleep apnea (adult) (pediatric)]08-46-6141CdyflmzLtcqibrf codes; unclassified (7 sources)Obstructive sleep apnea (adult) (pediatric); Translations: [Obstructive sleep apnea (adult)(pediatric)]ChronicResidual codes; unclassified (10 sources)Insomnia; Translations: [Insomnia, unspecified]22-98-2466Fvzmdisi Residual codes; unclassified (5 sources)Insomnia, unspecified; Translations: [Insomnia, unspecified] 07-03-6413AhoxouwuJjnrlmenwhj; intervertebral disc disorders; other back problems (6 sources)Other spondylosis with radiculopathy, lumbar region; Translations: [Degeneration of lumbar intervertebral disc]Onset: 63-81-9596WlneksbClwhmqi (20 sources)Syncope; Translations: [Syncope and collapse]Onset: 05-14-2023 78-13-9411TbayyczyLbcytecla cerebral ischemia (18 sources)Transient cerebral ischemia; Translations: [Transient cerebral ischemic attack, unspecified]Onset: 142499-60-4161IbheurbTftzafenetif (1 source)CHRN KIDNEY DISEASE STG 3 UNSP; Translations: [CHRN KIDNEY DISEASE STG 3 UNSP]Onset: 88-87-9585Deozsdrtyvsg (1 source)Other intervertebral disc degeneration, lumbar region without mention of lumbar back pain or lower extremity pain; Translations: [Other intervertebral disc degeneration, lumbar region without mentionof lumbar back pain or lower extremity pain]Onset: 57-13-3467Bglxkac tract infections (20 sources)Acute urinary tract infection; Translations: [Urinary tract infection, site not specified]25-52-8368UqxfxtepCavte infection (20 sources)Acute viral disease; Translations: [Viral infection, unspecified] 57-61-8053Svezjizi Past or Other Problems Problem ClassificationProblemDateDocumented DateEpisodic/ChronicCardiac dysrhythmias (20 sources)Palpitations; Translations: [Palpitations]Onset: 08-16-2024 82-51-1277AhquscyhVynzdtbcyp and other anemia (1 source)Anemia, unspecified; Translations: [Anemia, unspecified type]Onset: 30-84-6747GpwaoemaAkzpvnqlwh and other anemia (1 source)Iron deficiency anemia, unspecified; Translations: [Iron deficiency anemia, unspecified iron deficiency anemia type]Onset: 13-79-1475Jhngkfep Diabetes mellitus without complication (1 source)Impaired fasting glucose; Translations: [IMPAIRED FASTING GLUCOSE] Onset: 59-35-5398YxejdlywCyzoq aftercare (1 source)Other terminal supervisor (current) drug therapy; Translations: [OTH ASSISTED CURRENT DRUG THERAPY]Onset: 14-13-5690KrwoxgjqEcpgq lower respiratory disease (4 sources)Shortness of breath; Translations: [SHORTNESS OF BREATH]Onset: 55-69-5937YzjmtyrzJwpvp nervous system disorders (13 sources)Paresthesia; Translations: [Paresthesia of skin]Onset: 03-28-2024 28-57-0179XyrgxspzSrndd nervous system disorders (13 sources)Impairment of balance; Translations: [Other abnormalities of gait and mobility]Onset: 520581-33-1064WemlhshlGvaux non-epithelial cancer of skin (13 sources)History of malignant neoplasm of skin; Translations: [Personal history of other malignant neoplasm of skin]Onset: 973778-16-5925Narsjrgy Other screening for suspected conditions (not mental disorders or infectious disease) (6 sources)Abnormal level of blood mineral; Translations: [Abnormal level of blood mineral]Onset: 62-07-1196ZscjaiisWnedeq media and related conditions (13 sources)Bilateral tympanic membrane central perforation; Translations: [Central perforation of tympanic membrane, bilateral]Onset: EpisodicSpondylosis; intervertebral disc disorders; other back problems (1 source)Spinal stenosis, lumbar region with neurogenic claudication; Translations: [Spinal stenosis, lumbarregion with neurogenic claudication]Onset: 14-87-2518VzmxwgwaFvlyeuzp veins of lower extremity (13 sources)Venous varices; Translations: [Asymptomatic varicose veins of unspecified lower extremity]Onset: 603605-37-0202Jnfbaxml Results Test NameValueInterpretationReference RangeFacilityCBC W Auto Differential panel (Bld)on 38-47-7558Spdstwyup (Bld) [#/Vol]10*3/uLNormal<0.11CSycamore Medical Center on above:Order Comment: Specimen Type: BLOOD SPECIMENOrdering Facility: [facility] Address:[address], [place] [address]Performed By: #### 34288-5, 50455-0 ####[facility] LABCLIA [id number] [place], [place] [address]Apgmjbeby/100 WBC (Bld)0.3 %NormalAdams County Regional Medical Center on above:Order Comment: Specimen Type: BLOOD SPECIMENOrdering Facility: [facility] Address:[address], [place] [address]Performed By: #### 83182-8, 43966-0 ####[facility] LABCLIA [id number] [place], [place] [address]Pfgglozdjyrt cell count method Nom (Bld)AutoNormal [facility] on above:Order Comment: Specimen Type: BLOOD SPECIMENOrdering Facility: [facility] Address:[address] [place], [place] [address]Performed By: #### 96952-6, 88780-5 ####[facility] LABCLIA [id number] [place] [address] Eosinophils (Bld) [#/Vol]0.18 10*3/uLNormal<0.46[facility] Comment on above:Order Comment: Specimen Type: BLOOD SPECIMENOrdering Facility: [facility] Address:[address] [place] [address] Performed By: #### 44473-5, 39492-4 ####[facility] LABIA [id number] [place], [place] [address]Gzyrraihjhk/100 WBC (Bld)3.1 %NormalAdams County Regional Medical Center on above:Order Comment: Specimen Type: BLOOD SPECIMENOrdering Facility: [facility] Address:[address] [place], [place] [address]Performed By: #### 98112-9, 73002-1 ####[facility] LABCLIA [id number] [place], [place] [address]Quxaxuggqwt distribution width (RBC) [Ratio]15.9 %High 11.5-15.0[facility] on above:Order Comment: Specimen Type: BLOOD SPECIMENOrdering Facility: [facility] Address:[address] [place], [place] [address]Performed By: #### 81996-3, 13964-3 ####[facility] LABIA [id number] [place], [place] [address]Mdjtjalvtj (Bld) [Volume fraction]32.1 %Low36.0-46.0 [facility] on above:Order Comment: Specimen Type: BLOOD SPECIMENOrdering Facility: [facility] Address:[address] [place], [place] [address]Performed By: #### 84218-1, 13242-7 ####[facility] LABCLIA [id number] [place] [address] Hemoglobin (Bld) [Mass/Vol]10.6 g/dLLow11.5-15.5CLake [facility] Comment on above:Order Comment: Specimen Type: BLOOD SPECIMENOrdering Facility: [facility] Address:[address] [place] [address] Performed By: #### 55858-5, 48224-4 ####[facility] LABCLIA [id number] [place], [place] [address]Tnqmasaw granulocytes (Bld) [#/Vol]10*3/uLNormal<0.10[facility] CenterComment on above:Order Comment: Specimen Type: BLOOD SPECIMENOrdering Facility: [facility] Address:[address] [place], [place] [address]Performed By: #### 56203- 8, 56597-2 ####[facility] LABCLIA [id number] [place], [place] [address]Airqpgne granulocytes/100 WBC (Bld)0.3 %Normal [facility] CenterComment on above:Order Comment: Specimen Type: BLOOD SPECIMENOrdering Facility: [facility] Address:[address] [place], [place] [address]Performed By: #### 73274-3, 09760-9 ####[facility] LABCLIA [id number] [place] [address] Lymphocytes (Bld) [#/Vol]1.39 10*3/uLNormal1.00-4.00[facility] Comment on above:Order Comment: Specimen Type: BLOOD SPECIMENOrdering Facility: [facility] Address:[address] [place] [address] Performed By: #### 22684-0, 67647-5 ####[facility] LABCLIA [id number] [place], [place] [address]Atgezzfsaof/100 WBC (Bld)23.8 %NormalAdams County Regional Medical Center on above:Order Comment: Specimen Type: BLOOD SPECIMENOrdering Facility: [facility] Address:[address] [place], [place] [address]Performed By: #### 25907-6, 81879-4 ####[facility] LABCLIA [id number] [place], [place] [address]RIW (RBC) [Entitic mass]29.2 klIyrdmu49.0-34.0[facility] on above:Order Comment: Specimen Type: BLOOD SPECIMENOrdering Facility: [facility] Address:[address] [place], [place] [address]Performed By: #### 26091-6, 99507-0 ####[facility] LABCLIA [id number] [place], [place] [address]CFED (RBC) [Mass/Vol]33.0 g/mOEtdcxk38.5-36.0[facility] on above:Order Comment: Specimen Type: BLOOD SPECIMENOrdering Facility: [facility] Address:[address] [place], [place] [address]Performed By: #### 91780-1, 18163-3 ####[facility] LABCLIA [id number] [place], [place] [address]JED (RBC) [Entitic vol]88.4 fLNormal 80.0-100.0[facility] on above:Order Comment: Specimen Type: BLOOD SPECIMENOrdering Facility: [facility] Address:[address] [place], [place] [address]Performed By: #### 18642-4, 86077-1 ####[facility] LABCLIA [id number] [place], [place] [address]Bydqpuvgi (Bld) [#/Vol]0.35 10*3/uLNormal<0.87[facility] on above:Order Comment: Specimen Type: BLOOD SPECIMENOrdering Facility: [facility] Address:[address], [place] [address]Performed By: #### 21142-7, 38012-9 ####[facility] LABCLIA [id number] [place] [address] Monocytes/100 WBC (Bld)6.0 %NormalAdams County Regional Medical Center on above: Order Comment: Specimen Type: BLOOD SPECIMENOrdering Facility: [facility] Address:[address] [place], [place] [address]Performed By: #### 20415- 8, 26289-9 ####[facility] LABCLIA [id number] [place], [place] [address]Tkghvzbyksl (Bld) [#/Vol]3.89 10*3/uLNormal 1.45-7.50[facility] on above:Order Comment: Specimen Type: BLOOD SPECIMENOrdering Facility: [facility] Address:[address] [place], [place] [address]Performed By: #### 58936-3, 00253-5 ####[facility] LABCLIA [id number] [place], [place] [address]Zxvdlewqypa/100 WBC (Bld)66.5 %NormalAdams County Regional Medical Center on above:Order Comment: Specimen Type: BLOOD SPECIMENOrdering Facility: [facility] Address:[address] [place], [place] [address]Performed By: #### 29715-6, 50586-6 ####[facility] LABIA [id number] [place], [place] [address]Upyyosrkr RBC (Bld) [#/Vol]10*3/uLNormal<0.01[facility] on above:Order Comment: Specimen Type: BLOOD SPECIMENOrdering Facility: [facility] Address:[address] [place], [place] [address]Performed By: #### 39908- 8, 50404-7 ####[facility] LABCLIA [id number] [place], [place] [address]Ouvdxmtww RBC/100 WBC (Bld) [Ratio]0.0 /100 WBC NormalAdams County Regional Medical Center on above:Order Comment: Specimen Type: BLOOD SPECIMENOrdering Facility: [facility] Address:[address] [place], [place] [address]Performed By: #### 23618-5, 82597-2 ####[facility] LABCLIA [id number] [place], [place] [address]Nnrsfkiw mean volume (Bld) [Entitic vol]9.2 fLNormal9.0-12.7CSycamore Medical Center on above:Order Comment: Specimen Type: BLOOD SPECIMENOrdering Facility: [facility] Address:[address] [place], [place] [address]Performed By: #### 44887-8, 55435-3 ####[facility] LABCLIA [id number] [place] [address] Platelets (Bld) [#/Vol]126 10*3/bKLxa093-670McbecwwjzAdams County Regional Medical Center on above:Order Comment: Specimen Type: BLOOD SPECIMENOrdering Facility: [facility] Address:[address] [place], [place] [address]Performed By: #### 72414-7, 62747-7 ####[facility] LABCLIA [id number] [place], [place] [address]MCH (Bld) [#/Vol]3.63 10*6/uLLow3.90-5.20 [facility] on above:Order Comment: Specimen Type: BLOOD SPECIMENOrdering Facility: [facility] Address:[address] [place], [place] [address]Performed By: #### 23329-1, 41402-7 ####[facility] LABCLIA [id number] [place], [place] [address]PTO (Bld) [#/Vol]5.85 10*3/uLNormal3.70-11.00[facility] on above:Order Comment: Specimen Type: BLOOD SPECIMENOrdering Facility: [facility] Address:[address] [place], [place] [address], [place] [address]Wrftydwtx By: #### 77098-1, 98180-8 ####[facility] HOSPITALZANDRA [facility] LABCLIA [id number] [place], [place] [address]GRMBFKku 29-37-3536JZOGPHKhona (SP) Office (HEMASA) ANH TEJEDA ([id number]) 1950 F Date Time Provider Department 08/07/25 10:30 AM DAKSHA BRIDGES During your visit today, we recorded the following information about you: Temperature Pulse Respiration Blood pressure 97.7 degrees 79/minute 16/minute 121/59 Weight 100.9 kg Daksha Bridges PA-C 08/07/2025 10:50 AM Signed Hematology Progress Note PATIENT NAME: Anh Tejeda CLINIC NO.: [id number] ATTENDING PHYSICIAN: Henry Walker MD DATE OF [...] 6.4 04/18/2025 6.2 Albumin (more content not included)...NormalUniversity [facility] Comprehensive metabolic 2000 panelon 09-16-3884Rxnyvxh [Mass/Vol]3.9 g/dLNormal 3.9-4.9CLake [facility] WestComsheridan [facility] on above:Order Comment: Specimen Type: BLOOD SPECIMEN [facility] Address: [address], [place] [address]Performed By: #### 20768-9 #### [facility] CLIA [id number] [place], [place] [address]LNN [Catalytic activity/Vol]155 U/LQvnn74-020NunchazlrAdams County Regional Medical Center on above:Order Comment: Specimen Type: BLOOD SPECIMEN [facility] Address: [address] [place], [place] [address]Performed By: #### 89860-2 #### [facility] CLIA [id number] [address] [place], [place] [address]AQA [Catalytic activity/Vol]12 U/LNormal7-38[facility] on above:Order Comment: Specimen Type: BLOOD SPECIMEN [facility] Address: [address] [place], [place] [address]Performed By: #### 39790-6 #### [facility] CLIA [id number] [address] [place], [place] [address]Xprwc gap [Moles/Vol]11 mmol/LNormal8-15[facility] on above:Order Comment: Specimen Type: BLOOD SPECIMEN [facility] Address: [address] [place], [place] [address]Performed By: #### 75185-6 #### [facility] CLIA [id number] [address] [place], [place] [address]IMF [Catalytic activity/Vol]13 U/KTefwkg95-73KhhquhnjlAdams County Regional Medical Center on above:Order Comment: Specimen Type: BLOOD SPECIMEN Ordering Facility: [facility] Address: [address] [place], [place] [address]Performed By: #### 89011-3 #### [facility] CLIA [id number] [address] [place], [place] [address]Kezzunwvo [Mass/Vol]0.6 mg/dLNormal0.2-1.3CSycamore Medical Center on above:Order Comment: Specimen Type: BLOOD SPECIMEN Ordering Facility: [facility] Address: [address] [place], [place] [address]Performed By: #### 14705-3 #### [facility] CLIA [id number] [address] [place] [address] 72026Pjacntb [Mass/Vol]8.7 mg/dLNormal8.5-10.2CSycamore Medical Center on above:Order Comment: Specimen Type: BLOOD SPECIMEN Ordering Facility: [facility] Address: [address] [place], [place] [address]Performed By: #### 01443-9 #### [facility] CLIA [id number] [address] [place] [address] 10745Wrihmohr [Moles/Vol]102 mmol/LShsiug31-086ImtldqsimAdams County Regional Medical Center on above:Order Comment: Specimen Type: BLOOD SPECIMEN Ordering Facility: [facility] Address: [address] [place], [place] [address]Performed By: #### 17563-9 #### [facility] CLIA [id number] [address] [place] [address] 37658JG8 [Moles/Vol]27 mmol/WAprhwz11-06EbviysdxlUniversity Hospitals Conneaut [facility] Comment on above:Order Comment: Specimen Type: BLOOD SPECIMEN Ordering Facility: [facility] Address: [address] [place], [place] [address]Performed By: #### 13379-9 #### [facility] CLIA [id number] [address] [place] [address] 49582Vrxrmjzvrh [Mass/Vol]1.33 mg/dLHigh0.58-0.96[facility] on above:Order Comment: Specimen Type: BLOOD SPECIMEN Ordering Facility: [facility] Address: [facility] [place], [place] [address]Performed By: #### 78975-9 #### [facility] CLIA [id number] [address] [place] [address] 44642cUNRnw SerPlBld CKD-EPI 585889 mL/min/1.73m???Low>=60[facility] Conneaut Medical CenterComment on above:Order Comment: Specimen Type: BLOOD SPECIMEN Ordering Facility: [facility] Address: [address] [place] [address]Dislzb Comment: Estimated Glomerular Filtration Rate (eGFR) is [...] not accurately reflect actual GFR.Performed By: #### 03077-8 #### [facility] CLIA [id number] [address] [place] [address] 22718Nvqkfib [Mass/Vol]208 mg/mLTfxi10-53LrblnwpyhUniversity Hospitals Conneaut Medical Center Comment on above:Order Comment: Specimen Type: BLOOD SPECIMEN Ordering Facility: [facility] Address: [address] [place] [address] 76376Uhtbnj Comment: The [place] Diabetes Association (ADA) provides guidance for cutoff [...] Standards of Medical Care in Diabetes 2016, [place] [employer]. Diabetes Care. 2016.39(Suppl 1).Performed By: #### 86193-6 #### [facility] CLIA [id number] [address] [place] [address] 45[address]Cqmzpphej [Moles/Vol]4.4 mmol/LNormal3.7-5.1CSycamore Medical Center on above:Order Comment: Specimen Type: BLOOD SPECIMEN Ordering Facility: [facility] Address: [address] [place], [place] [address]Performed By: #### 62811-3 #### [facility] CLIA [id number] [address] [place], [place] [address]Mwxoxfr [Mass/Vol]6.1 g/dLLow6.3-8.0[facility] Comment on above:Order Comment: Specimen Type: BLOOD SPECIMEN Ordering Facility: [facility] Address: [address] [place], [place] [address]Performed By: #### 03380-7 #### [facility] CLIA [id number] [address] [place] [address] 59566Xollnt [Moles/Vol]140 mmol/VGjdiiu975-611IjgaqljevUniversity Hospitals Conneaut Medical CenterComment on above:Order Comment: Specimen Type: BLOOD SPECIMEN Ordering Facility: [facility] Address: [address] [place], [place] [address]Performed By: #### 57639-1 #### [facility] CLIA [id number] [address] [place] [address] 27991Vssa nitrogen [Mass/Vol]34 mg/dLHigh7-21[facility] Conneaut Medical CenterComment on above:Order Comment: Specimen Type: BLOOD SPECIMEN Ordering Facility: [facility] Address: [address] [place], [place] [address]Performed By: #### 60080-4 #### [facility] CLIA [id number] [address] [place] [address] 70171IJG SerPl-aCncon 09-21-4986Fdzxssgiocazhu (EPO) Qn30.0 mIU/mL High2.6-18.5CLake County Memorial Hospital - WestComment on above:Order Comment: Specimen Type: BLOOD SPECIMENOrdering Facility: [facility] Address:[address] [place], [place] [address]Performed By: #### 85477-4 ####[facility] LABCLIA [id number] [facility] [id number] H[address] STREETFerritin SerPl-mCncon 29-91-6699Wjxeuclr [Mass/Vol]353.0 ng/lQUlfc77.7-205.1CSycamore Medical Center on above:Order Comment: Specimen Type: BLOOD SPECIMEN Ordering Facility: [facility] Address: [address] [place], [place] [address]Performed By: #### 24814-8, 6-4 #### [facility] CLIA [id number] [address] [place] [address] STATES OF AMERICAFolate SerPl-mCncon 24-84-6454Dnzgmf [Mass/Vol]ng/mLNormal>4.7CSycamore Medical Center on above:Order Comment: Specimen Type: BLOOD SPECIMEN Ordering Facility: [facility] Address: [address] [place], [place] [address]Result Comment: A result of > 20 ng/mL is not necessarily indicative of a pathologic or treatable condition: it reflects a limitation of the test methodology. Assay reference range: 4.8 to 24.2 ng/mL. Suitable for detection of folate deficiency. Reference: Folate III (Folate III) [package insert V 1.0 Gibraltarian]. [facility], [place], [place]: September 2015.Performed By: #### 91326-8, 2275-4 #### [facility] CLIA [id number] [address] [place] [address] STATES OF AMERICAIMMUNOFIXATION SCREEN, SERUM on 47-09-6352MIZ RESULTNo M protein is identified.NormalNo M protein is identified.[facility] on above:Order Comment: Specimen Type: BLOOD SPECIMEN Ordering Facility: [facility] Address: [address] [place], [place] [address]Performed By: #### 49583-9, 2275-4 #### [facility] CLIA [id number] [address] [place] [address] STATES OF AMERICASTAFF REVIEW (MPA)Reviewed by Nimco Meredith M.D.[facility] on above:Order Comment: Specimen Type: BLOOD SPECIMEN [facility] Address: [address] [place], [place] [address]Performed By: #### 58911-0, 6-4 #### [facility] CLIA [id number] [address] [place] [address] [place] OF AMERICAIMMUNOGLOBULINS,IGG,IGA,IGM on 93-13-8960RlM [Mass/Vol]45 mg/qYEnz31-362YoiidvykqAdams County Regional Medical Center on above:Order Comment: Specimen Type: BLOOD SPECIMENOrdering Facility: [facility] Address:[address] [place], [place] [address]Performed By: #### SERIMM ####[facility] LABCLIA [id number] [place] [address] [place] OF AMERICAIgG [Mass/Vol]657 mg/dL Ege304-9386KcjkhpqboAdams County Regional Medical Center on above:Order Comment: Specimen Type: BLOOD SPECIMENOrdering Facility: [facility] Address:[address] [place], [place] [address]Performed By: #### SERIMM ####[facility] LABCLIA [id number] [place] [address] [place] OF AMERICAIgM [Mass/Vol]33 mg/nYLft22-985XqatsxsawAdams County Regional Medical Center on above:Order Comment: Specimen Type: BLOOD SPECIMENOrdering Facility: [facility] Address:[address] [place], [place] [address]Performed By: #### SERIMM ####[facility] LABCLIA [id number] [place] [address] [place] RASHMI Iron and Iron binding capacity panelon 51-88-7495Remv [Mass/Vol]67 ug/dLNormal 41-186[facility] on above:Order Comment: Specimen Type: BLOOD SPECIMEN [facility] Facility: [facility] Address: [address] [place], [place] [address]Performed By: #### 25097-2, 2275-4 #### [facility] CLIA [id number] [address] [place] [address] [place] OF AMERICAIron binding capacity [Mass/Vol]295 ug/eCVpfdch786-074UfmrwysdgAdams County Regional Medical Center on above:Order Comment: Specimen Type: BLOOD SPECIMEN [facility] Facility[facility] Address: [address] [place], [place] [address]Performed By: #### 16700-8, 2276-4 #### [facility] CLIA [id number] [address] [place] [address] [place] OF AMERICAIron/TIBC [Molar ratio]22.7 %Ruwned17.0-57.0[facility] on above:Order Comment: Specimen Type: BLOOD SPECIMEN [facility] Facility: [facility] Address: [address] [place], [place] [address]Performed By: #### 94299-3, 2275-4 #### [facility] CLIA [id number] [address] [place] [address] [place] OF AMERICAKAPPA/SAMANIEGO,FREE,SERon 08-39-4801Lhcpvfzpohnsiu light chains.kappa.free (S) [Mass/Vol]28.9 mg/LHigh 3.3-19.4CSycamore Medical Center on above:Order Comment: Specimen Type: BLOOD SPECIMENOrdering Facility: [facility] Address:[address] [place], [place] [address]Result Comment: Rarely, increased serum free light chains levels may not be detected or accurately quantified due to prozone phenomenon or in high viscosity samples using this immunoturbidimetric assay. Correlation with other laboratory results and clinical findings is recommended. The Laura Free Light Chain was performed using the Binding Site Optilite immunoturbidimetric method. Result obtained with different assay methods or kits cannot be used interchangeably.Performed By: #### KLFRS ####[facility] LABCLIA [id number] [place] [address] [place] OF AMERICAImmunoglobulin light chains.kappa/Immunoglobulin light chains.lambda (S) [Mass ratio]1.44Ogzkbw5.26-1.65[facility] Comment on above:Order Comment: Specimen Type: BLOOD SPECIMENOrdering Facility: [facility] Address:[address] [place] [address] Performed By: #### KLFRS ####[facility] LABCLIA [id number] [place] [address] [place] AMERICAImmunoglobulin light chains.lambda.free [Mass/Vol]27.7 mg/LHigh5.7-26.3CSycamore Medical Center on above:Order Comment: Specimen Type: BLOOD SPECIMENOrdering Facility: [facility] Address:[address] [place], [place] [address]Result Comment: Rarely, increased serum free light chains [...] cannot be used interchangeably.Performed By: #### KLFRS ####[facility] LABIA [id number] [place] [address] [place] OF AMERICAPROTEIN ELECTROPHORESIS SERUM (P)on 41-91-3854Jikywio [Mass/Vol]3.48 g/dLNormal3.43-5.41[facility] Medical CenterComment on above: Order Comment: Specimen Type: BLOOD SPECIMENOrdering Facility: [facility] Address:[address] [place], [place] [address]Performed By: #### [id number] ####[facility] LABIA [id number] [place] [address] [place] OF AMERICAAlpha 1 globulin Elph [Mass/Vol]0.35 g/dLNormal0.18-0.43[facility] on above: Order Comment: Specimen Type: BLOOD SPECIMENOrdering Facility: [facility] Address:[address] [place], [place] [address]Performed By: #### [id number] ####[facility] LABCLIA [id number] [place] [address] [place] AMERICAAlpha 2 globulin Elph [Mass/Vol]0.80 g/dLNormal0.42-0.98[facility] on above: Order Comment: Specimen Type: BLOOD SPECIMENOrdering Facility: [facility] Address:[address] [place], [place] [address]Performed By: #### [id number] ####[facility] LABCLIA [id number] [address] STATES OF AMERICABeta globulin Elph [Mass/Vol]0.56 g/dLLow0.61-1.17[facility] on above:Order Comment: Specimen Type: BLOOD SPECIMENOrdering Facility: [facility] Address:[address] [place], [place] [address]Performed By: #### [id number] ####[facility] LABIA [id number] [address] STATES [facility] HOSPITALGamma globulin Elph [Mass/Vol]0.50 g/dLLow0.53-1.51[facility] on above:Order Comment: Specimen Type: BLOOD SPECIMENOrdering Facility: [facility] Address:[address] [place], [place] [address]Performed By: #### [id number] ####[facility] LABCLIA [id number] [address] STATES OF AMERICAINTERPRETATION COMMENT FOR PROTEIN ELECTROPHORESISHypogammaglobulinemia is present, which can be seen in the setting of monoclonal gammopathy. If clinically indicated, monoclonal protein analysis and serum free light chain analysis are suggested to evaluate further for monoclonal gammopathy.NormalAdams County Regional Medical Center on above:Order Comment: Specimen Type: BLOOD SPECIMENOrdering Facility: [facility] Address:[address] [place], [place] [address]Performed By: #### [id number] ####[facility] LABCLIA [id number] [place] [address] [place] OF AMERICAM-PROTEIN LOCATION NormalAdams County Regional Medical Center on above:Order Comment: Specimen Type: BLOOD SPECIMENOrdering Facility: [facility] Address:[address] [place], [place] [address]Result Comment: Not Applicable.Performed By: #### [id number] ####[facility] LABIA [id number] [place] [address] [place] [facility] HOSPITALProtein Fractions [Interp]No definitive M protein is identified on protein electrophoresis.Normal No definitive M protein is identified on protein electrophoresis.[facility] on above:Order Comment: Specimen Type: BLOOD SPECIMENOrdering Facility: [facility] Address:[address] [place], [place] [address]Performed By: #### [id number] ####[facility] LABIA [id number] [place] [address] [place] AMERICAProtein.monoclonal Elph [Mass/Vol]0.00 g/dLNormal<=0.00[facility] on above:Order Comment: Specimen Type: BLOOD SPECIMENOrdering Facility: [facility] Address:[address] [place], [place] [address]Performed By: #### [id number] ####[facility] LABIA [id number] [place] [address] [place] RASHMI SPE STAFF REVIEWReviewed by Nimco Meredith M.D.[facility] Comment on above:Order Comment: Specimen Type: BLOOD SPECIMENOrdering Facility: [facility] Address:[address] [place] [address] Performed By: #### [id number] ####[facility] LABIA [id number] [place] [address] [place] RASHMI Prot SerPl-mCncon 49-04-1607Stgmnyo [Mass/Vol]5.7 g/dLLow6.3-8.0[facility] on above:Order Comment: Specimen Type: BLOOD SPECIMEN [facility] Address: [address] [place], [place] [address]Performed By: #### 58703-2, 4 #### [facility] CLIA [id number] [address] [place] [address] [place] OF AMERICARetics #on 08-07-2025 Reticulocytes (Bld) [#/Vol]0.76905 10*3/uLHigh0.018-0.100[facility] on above:Order Comment: Specimen Type: BLOOD SPECIMENOrdering Facility: [facility] Address:[address] [place], [place] [address]Performed By: #### 10350-9, 67149-3 ####[facility] LABCLIA [id number] [place], [place] [address]Eiwbdsmtodxsr (Bld) [#/Vol]on 40-80-7037Unciedduohqex/100 RBC (Bld)3.1 %High0.4-2.0[facility] on above:Order Comment: Specimen Type: BLOOD SPECIMENOrdering Facility: [facility] Address:[address] [place], [place] [address]Performed By: #### 75794-8, 41119-6 ####[facility] LABCLIA [id number] [place], [place] [address]Aiw B12 SerPl-mCncon 87-26-4229Awfutcdxv (Vitamin B12) [Mass/Vol]903 pg/kKEkyari615-5965WavnckxceSycamore Medical Center on above:Order Comment: Specimen Type: BLOOD SPECIMEN [facility] Address: [address] [place], [place] [address]Performed By: #### 58530-5, 4 #### [facility] CLIA [id number] [address] [place] [address] [place] AMERICAX-ray reportOrdered By: Sharad Robles on 78-84-5009Ixjhg reportUNIVERSITY H[facility]PITALS [facility]HU[facility] Main [address] [address] XRay Report Signed Patient: Anh Tejeda MR#: [id number] : 1950 Acct:[id number] Age/Sex: 74 / F ADM Date: 5 [...] Robles M.D. 07/19/2025 10:41 PM Dictation Location: [place] [address] Transcribed By: [facility] 07/19/252240 Dictated By: Sharad Robles DO 07/19/252239 Signed By: 07/19/252240 [facility] Centertudy reportUNIVERSITY HOSPITALS [facility]HU[facility] Main [address] [address] XRay Report Signed Patient: Anh Tejeda MR#: [id number] : 1950 Acct:[id number] Age/Sex: 74 / F ADM Date: 5 [...] Robles M.D. 07/19/2025 10:39 PM Dictation Location: [employer]-[facility] Transcribed By: MT 07/19/252238 Dictated By: Sharad Robles DO 07/19/252238 Signed By: 07/19/2522[address] [facility] [address] [facility] HospitalXR knee standing BIon 22-99-8133WF knee standing [facility] [address] XRay Report Signed Patient: Anh Tejeda MR#: [id number] : 1950 Acct:[id number] Age/Sex: 74 / F ADM Date: 07/19/25 Loc: XD Room: Type: [facility] Attending Dr: Vinay Matta DO Copies to: [...] Robles M.D. 07/19/2025 10:41 PM Dictation Location: [employer]-20 Transcribed By: MT 07/19/252240 Dictated By: Sharad Robles DO 07/19/252239 Signed By: 07/19/252240[facility] Physician GroupXR shoulder BI min 2Von 03-15-9510XT shoulder BI min 2VFIRELANDS [facility] [place] [address] XRay Report Signed Patient: Anh Tejeda MR#: [id number] : 1950 Acct:[id number] Age/Sex: 74 / F ADM Date: 07/19/25 Loc: XD Room: Type: [facility] Attending Dr: Vinay Matta DO Copies to: [...] Robles M.D. 07/19/2025 10:39 PM Dictation Location: [facility]--20 Transcribed By: [facility] 07/19/252238 Dictated By: Sharad Robles DO 07/19/252238 Signed By: 07/19/[address] [place] [address] Physician GroupAmbulatory Visit Summaryon 37-21-3202Yeqcxfbybr Visit SummaryAmbulatory Visit Summary ANH TEJEDA :1950 [...] EST With: Shanel DONG, Verónica Finch Where: [facility] [address] [place] [address] [place] [phone]- You Need to Complete the Following Comprehensive [...] Hyperlipidemia Itching Liver fibrosis (more content not included)...[facility] CenterGastroenterology Office/Clinic Noteon 54-10-0239Ozuljtbmyitbsdvf Office/Clinic Note Gastroenterology Office/Clinic Note Chief Complaint [...] 84.5 fL (03/27/25) Chloride: 104 mmol/L (03/27/25) [place] Absolute: 0.3 E9/L (03/27/25) CO2: 28 mmol/L (03/27/25) [place] Auto: 6.4 % (03/27/25) Creatinine: 1.2 mg/dL [...] without esophagitis) Ordered: Curr (more content not included)...[facility] CenterComment on above:Result Comment: Electronically Signed By: Shanel DONG, Verónica Finch\.br\Date and Time Signed: 07/11/2512:47 EDTA1C with Estimated Average Gluon 06-26-2025 Glucose [Mass/Vol]157 mg/dLNoCape Fear Valley Bladen County Hospital Physician GroupComment on above: Result Comment: PERFORMED BY: [place] [address] PATHOLOGIST [employer]ENDER CONVEYOR OPERATOR KARTHIK CHICAS M.D.Performed By: #### A1C WTH eA, LIPID #### [facility] [address] [place] [address] USAAlanine aminotransferase [Enzymatic activity/volume] in Serum or PlasmaOrdered By: Vinay Bunting on 17-55-6240RXB [Catalytic activity/Vol]11 U/LNormal7-52[facility]. Charles HospitalComment on above: Performed By: #### MG, CMP, CBC, LIPID #### [facility] [address] [place] [address] USAAlbumin [Mass/volume] in Serum or Plasma by Bromocresol green (BCG) dye binding methoOrdered By: Vinay Bunting on 75-70-1334Sutyjxe BCG dye [Mass/Vol]3.8 g/dL3.5-5.7FMercy Health St. Rita's Medical CenterAlkaline phosphatase [Enzymatic activity/volume] in Serum or PlasmaOrdered By: Vinay Bunting on 79-70-1652YLX [Catalytic activity/Vol]132 U/JUhnt12-775RlmftloaeMercy Health St. Charles HospitalComment on above:Performed By: #### MG, CMP, CBC, LIPID #### [facility] [address] [place] [address] USAAppearance of UrineOrdered By: Marilyn Stewart on 06-26-2025 Appearance (U)ClearNormalClearMercy Health St. Charles HospitalComment on above: Order Comment: A1C IS NOT DUE UNTIL OCTOBER.Performed By: #### MG, CMP, CBC, LIPID #### [facility] [address] [place] [address] USAAspartate aminotransferase [Enzymatic activity/volume] in Serum or PlasmaOrdered By: Vinay Bunting on 95-30-7553PSE [Catalytic activity/Vol]12 U/QYou24-02KuvisjbrvMercy Health St. Charles HospitalComment on above: Performed By: #### MG, CMP, CBC, LIPID #### [facility] [address] [place] [address] USABacteria [Presence] in Urine by AutomatedOrdered By: Marilyn Stewart on 56-85-2242Tyyciseb Auto Ql (U)None seen [HPF]None SeenMercy Health St. Charles HospitalBilirubin Test strip Ql (U)Ordered By: Marilyn Bulldir on 46-81-4789Fzxdawxml Ql (U)NegativeNegativeMercy Health St. Charles Hospital Bilirubin.total [Mass/volume] in Serum or PlasmaOrdered By: Vinay Bunting on 14-08-6516Ovgwkrqmc [Mass/Vol]0.7 mg/dLNormal0.3-1.0[facility]. Charles HospitalComment on above:Performed By: #### MG, CMP, CBC, LIPID #### [facility] [address] [place] [address] USABlood estimated average glucose determination by estimation from glycated hemoglobinOrdered By: Vinay Bunting on 06-26-2025 Average glucose Estimated from glycated hemoglobin (Bld) [Mass/Vol]157 mg/dL [facility] Charles HospitalCalcium [Mass/volume] in Serum or PlasmaOrdered By: Vinay Bunting on 74-46-8782Umejkgp [Mass/Vol]8.9 mg/dLNormal8.6-10.[address] Charles HospitalComment on above:Performed By: #### MG, CMP, CBC, LIPID #### [facility] [address] [place] [address] USACarbon dioxide, total [Moles/volume] in Serum or Plasma Ordered By: Vinay Bunting on 00-15-6638DJ7 [Moles/Vol]32.4 mmol/LHigh21.0-31.[address] Charles HospitalComment on above:Performed By: #### MG, CMP, CBC, LIPID #### [facility] [address] [place] [id number] USAChloride [Moles/volume] in Serum or PlasmaOrdered By: Vinay Bunting on 90-39-2795Ghnfhulv [Moles/Vol]103 mmol/YNslbgk24-758JgrbhdgwbMercy Health St. Charles HospitalComment on above:Performed By: #### MG, CMP, CBC, LIPID #### [facility] [address] [place], [place] [address] USACholesterol [Mass/volume] in Serum or PlasmaOrdered By: Vinay Matta on 73-77-0430Dsiuzbkrxjj [Mass/Vol]102 mg/jEJfy711-538ZcjqxrusqMercy Health St. Charles HospitalComment on above:Chol less than 200 mg/dl low riskChol 201-239 mg/dl borderline riskChol 240 mg/dl and greater high riskResult Comment: Chol less than 200 mg/dl low risk Chol 201-239 mg/dl borderline risk Chol 240 mg/dl and greater high riskPerformed By: #### A1C WTH eA, LIPID #### [facility] [address] [place] [address] USACholesterol in HDL [Mass/volume] in Serum or PlasmaOrdered By: Vinay Matta on 73-13-9036Osvmewoqopp in HDL [Mass/Vol]37 mg/dLNormal 23-92Mer[facility] Health St. Charles HospitalComment on above:HDL CHOL ATP-III CLASSIFICATION Cardiovascular RiskHDL > or equal to 60 mg/dL LOWHDL < 40 mg/dL HIGHResult Comment: HDL CHOL ATP-III CLASSIFICATION Cardiovascular Risk HDL > or equal to 60 mg/dL LOW HDL < 40 mg/dL HIGHPerformed By: #### A1C WTH eA, LIPID #### [facility] [address] [place] [address] USACholesterol in LDL Calc [Mass/Vol]Ordered By: Vinay Matta on 99-32-0078Iknqrgypvqq in LDL [Mass/Vol]43 mg/dL0-100Mer[facility] St. Charles HospitalComment on above:LDL ATP III CLASSIFICATIONLDL less than 100 mg/dL OptimalLDL 100-129 mg/dL Near or above dnwmrfqYKK039-255 mg/dL Borderline highLDL 160-189 mg/dL HighLDL greater than 189 mg/dL Very high Cholesterol in VLDL Calc [Mass/Vol]Ordered By: Vinay Matta on 06-26-2025 Cholesterol in VLDL [Mass/Vol]22 mg/dLMercy Health St. Charles HospitalColor of Urine by AutoOrdered By: Marilyn Stewart on 90-72-3672Lhkqe (U)Light-yellowNormal [facility] HospitalComment on above:Order Comment: A1C IS NOT DUE UNTIL OCTOBER.Performed By: #### MG, CMP, CBC, LIPID #### [facility] [address] [place] [address] USAComprehensive Metabolic Panelon 42-28-2962Bdmhwul [Mass/Vol]3.8 g/dLNormal3.5-5.7The [facility] Physician GroupComment on above: Performed By: #### MG, CMP, CBC, LIPID #### [facility] [address] [place] [address] USAGFR/1.73 sq M.predicted MDRD (S/P/Bld) [Vol rate/Area] 41.095 mL/min/{1.73_m2}NormalThe [facility] Hospital Physician GroupComment on above: Performed By: #### MG, CMP, CBC, LIPID #### [facility] [address] [place] [address] USACreatinine [Mass/volume] in Serum or PlasmaOrdered By: Vinay Matta on 26-45-5225Crybbymtpo [Mass/Vol]1.34 mg/dLHigh0.60-1.[address] Charles HospitalComment on above:Performed By: #### MG, CMP, CBC, LIPID #### [place] [address] USACreatinine [Mass/volume] in UrineOrdered By: Marilyn Stewart on 64-06-7823Wjowncyonq (U) [Mass/Vol]63.00 mg/dLMercy Health St. Charles HospitalComment on above:No reference range establishedDipstick and Microscopicon 71-39-7938Eeirdgld,UrineNone SeenNormalNone SeenThe [facility] Group Comment on above:Order Comment: A1C IS NOT DUE UNTIL OCTOBER.Performed By: #### MG, CMP, CBC, LIPID #### [place] [id number] USABilirubin,UrineNegativeNormalNegativeThe [facility] Hospital Physician GroupComment on above:Order Comment: A1C IS NOT DUE UNTIL OCTOBER. Performed By: #### MG, CMP, CBC, LIPID #### [facility] [address] [place] [address] USAGlucose Ql (U)NormalNormalNormalThe [facility] Hospital Physician GroupComment on above:Order Comment: A1C IS NOT DUE UNTIL OCTOBER.Performed By: #### MG, CMP, CBC, LIPID #### [facility] [address] [place] [address] USAHyaline Casts,UrineNoneNormal0-8The [facility] Physician GroupComment on above:Order Comment: A1C IS NOT DUE UNTIL OCTOBER.Performed By: #### MG, CMP, CBC, LIPID #### [facility] [address] [place] [address] USAMucus,UrineRareNormalSt. Vincent'[facility] Southside Physician GroupComment on above:Order Comment: A1C IS NOT DUE UNTIL OCTOBER.Result Comment: PERFORMED BY: [place] [address] PATHOLOGIST BLENDER CONVEYOR OPERATOR KARTHIK CHICAS M.D.Performed By: #### MG, CMP, CBC, LIPID #### [facility] [address] [place] [address] USANitrite,UrineNegativeNormalNegativeSt. Vincent'[facility]side Physician GroupComment on above:Order Comment: A1C IS NOT DUE UNTIL OCTOBER.Performed By: #### MG, CMP, CBC, LIPID #### [facility] [address] [place] [address] USAOccult Blood,UrineNegativeNormalNegativeSt. Vincent'[facility]side Physician GroupComment on above:Order Comment: A1C IS NOT DUE UNTIL OCTOBER. Performed By: #### MG, CMP, CBC, LIPID #### [facility] [address] [place] [address] USAProtein,UrineNegativeNormalNegativeThe [facility] Physician GroupComment on above:Order Comment: A1C IS NOT DUE UNTIL OCTOBER.Performed By: #### MG, CMP, CBC, LIPID #### [facility] [address] [place] [address] USARBC,Wgtcm7-9Ttmhbl9-4Zok [facility] Physician GroupComment on above:Order Comment: A1C IS NOT DUE UNTIL OCTOBER.Performed By: #### MG, CMP, CBC, LIPID #### [facility] [address] [place] [address] USASpecificy [place],Urine1.924Fxtkjh2.001-1.030The [facility] Physician GroupComment on above:Order Comment: A1C IS NOT DUE UNTIL OCTOBER. Performed By: #### MG, CMP, CBC, LIPID #### [facility] [address] [place] [address] USASquamous Epithelial Cell,Ttskn6-8Hpkthj8-9Dep [facility] Physician GroupComment on above:Order Comment: A1C IS NOT DUE UNTIL OCTOBER. Performed By: #### MG, CMP, CBC, LIPID #### [facility] [address] [place] [address] USAUrobilinogen,UrineNormalNormalNormalThe [facility] Physician GroupComment on above:Order Comment: A1C IS NOT DUE UNTIL OCTOBER. Performed By: #### MG, CMP, CBC, LIPID #### [facility] [address] [place] [address] USAWBC,Vjqds0-8Cwhkuj7-0Zmd [facility] Physician GroupComment on above:Order Comment: A1C IS NOT DUE UNTIL OCTOBER.Performed By: #### MG, CMP, CBC, LIPID #### [facility] [address] [place] [address] USAEpithelial cells.squamous [#/area] in Urine sediment by Automated countOrdered By: Marilyn Smithr on 22-11-9391Zkxqawtmju cells.squamous Auto (Urine sed) [#/Area]5-9 [HPF]High0-2FMercy Health St. Rita's Medical Center Erythrocyte distribution width [Ratio] by Automated countOrdered By: Marilyn Terry on 65-72-3894Rgopfspvmin distribution width (RBC) [Ratio]16.6 %High11.9-15.[address] Charles HospitalComment on above:Performed By: #### MG, CMP, CBC, LIPID #### [facility] [address] [place] [address] USAErythrocytes [#/area] in Urine sediment by Automated count Ordered By: Marilyn Smithr on 44-40-1625KFV Auto (Urine sed) [#/Area]1-2 [HPF]0-[address] Charles HospitalErythrocytes [#/volume] in Blood by Automated countOrdered By: Marilyn Stewart on 87-96-8584AHK (Bld) [#/Vol]3.77 10*6/uLNormal 3.60-5.00Mer[facility] St. Charles HospitalComment on above:Performed By: #### MG, CMP, CBC, LIPID #### [facility] [address] [place] [address] USAGlucose [Mass/volume] in Serum or PlasmaOrdered By: Vinay Matta on 54-09-1549Tyjsgwy [Mass/Vol]171 mg/gDUaru88-960WihkdvninMercy Health St. Charles HospitalComment on above:ADA recommended reference rangeRandom Glucose Reference [...] By: #### MG, CMP, CBC, LIPID #### [facility] [address] [place] [address] USAGlucose [Mass/volume] in Urine by Test stripOrdered By: Marilyn Stewart on 24-72-5221Shhetrq Test strip (U) [Mass/Vol]Normal mg/dLNormal [facility] Charles HospitalHematocrit [Volume Fraction] of Blood by Automated countOrdered By: Marilyn Stewart on 10-05-6374Vsebptevpp (Bld) [Volume fraction]32.4 %Low34.0-46.4FMercy Health St. Rita's Medical CenterComment on above: Performed By: #### MG, CMP, CBC, LIPID #### [facility] [address] [place] [address] USAHemoglobin A1c/Hemoglobin.total in BloodOrdered By: Vinay Matta on 47-95-8657YfF6q (Bld) [Mass fraction]7.1 %High4.3-5.6FMercy Health St. Rita's Medical CenterComment on above:Increased risk for diabetes: 5.7 - 6.4diabetes: >6.4glycemic control for adults with diabetes: <7.0Result Comment: Increased risk for diabetes: 5.7 - 6.4 diabetes: >6.4 glycemic control for adults with diabetes: <7.0Performed By: #### A1C WTH eA, LIPID #### [facility] [address] [place] [address] USAHemoglobin Test strip Ql (U)Ordered By: Marilyn Stewart on 06-28-3295Jzrcgmiser Ql (U)NegativeNegProMedica Fostoria Community Hospital Hemoglobin [Mass/volume] in BloodOrdered By: Marilyn Stewart on 42-77-3951Mrzpejlufw (Bld) [Mass/Vol]11.1 g/dLLow11.8-15.4FMercy Health St. Rita's Medical CenterComment on above:Performed By: #### MG, CMP, CBC, LIPID #### [place] [address] USAHemogram CBC Without Diffon 46-69-2473Ibze Corpuscular HGB Conc34.1 g/gLQjdzww11.0-35.0The [facility] Hospital Physician GroupComment on above: Performed By: #### MG, CMP, CBC, LIPID #### [place] [address] USAWhite Blood Count5.4 [CFU]/mLNormal3.8-11.6The [facility] Hospital Physician GroupComment on above:Performed By: #### MG, CMP, CBC, LIPID #### [place] [address] USAHyaline casts [#/area] in Urine sediment by Automated countOrdered By: Marilyn Stewart on 21-32-4282Nlsmajj casts Auto (Urine sed) [#/Area]None [LPF]0-8[facility] Charles HospitalKetones [Presence] in Urine by Test stripOrdered By: Marilyn Stewart on 54-63-1631Sorpbjz Ql (U)Negative NormalNegProMedica Fostoria Community HospitalComment on above:Order Comment: A1C IS NOT DUE UNTIL OCTOBER.Performed By: #### MG, CMP, CBC, LIPID #### [facility] [address] [place] [address] USALeukocyte esterase [Presence] in Urine by Test strip Ordered By: Marilyn Stewart on 84-23-6742Zalpwbyec esterase Test strip Ql (U) NegativeNormalNegativeMercy Health St. Charles HospitalComment on above:Order Comment: A1C IS NOT DUE UNTIL OCTOBER.Performed By: #### MG, CMP, CBC, LIPID #### [facility] [address] [place] [address] USALeukocytes [#/area] in Urine sediment by Automated count Ordered By: Marilyn Stewart on 64-51-7746WBY Auto (Urine sed) [#/Area]1-2 [HPF]0-[address] Charles HospitalLeukocytes [#/volume] corrected for nucleated erythrocytes in Blood by Automated counOrdered By: Marilyn Stewart on 73-90-8963KQL corrected for nucl RBC Auto (Bld) [#/Vol]5.4 10*3/uL3.8-11.6FMercy Health St. Rita's Medical CenterLipid Panelon 68-80-2270SKO Cholesterol,Jufuhtjepd01 mg/dLNormal 0-100The [facility] Physician GroupComment on above:Result Comment: LDL ATP III CLASSIFICATION LDL less than 100 mg/dL Optimal LDL 100-129 mg/dL Near or above optimal LDL 130-159 mg/dL Borderline high LDL 160-189 mg/dL High LDL greater than 189 mg/dL Very highPerformed By: #### A1C WTH eA, LIPID #### [facility] [address] [place] [address] USATriglyceride w/Mjyikx530 mg/dLNormal0-149The [facility] Hospital Physician GroupComment on above:Result Comment: TRIG ATP III CLASSIFICATION TRIG less than 150 mg/dL Normal TRIG 150-199 mg/dL Borderline high TRIG 200-500 mg/dL High TRIG greater than 500 mg/dL Very high Standard traceable to the Center for Disease Conrtrol and Prevention (CDC) test method.Performed By: #### A1C WTH eA, LIPID #### [facility] [address] [place] [address] USAVLDL JJAICSAAGPP21 mg/dLNormalThe [facility] Hospital Physician GroupComment on above:Performed By: #### A1C WTH eA, LIPID #### [facility] [address] [Entitic mass] by Automated countOrdered By: Marilyn Stewart on 53-92-1208YAI (RBC) [Entitic mass]29.3 xrAfdkev21.7-34.3FMercy Health St. Rita's Medical CenterComment on above:Performed By: #### MG, CMP, CBC, LIPID #### [facility] [address] Auto (RBC) [Mass/Vol]Ordered By: Marilyn Stewart on 56-13-3600SWHT (RBC) [Mass/Vol]34.1 g/dL32.0-35.0Mer[facility] St[facility] Charles HospitalMCV [Entitic volume] by Automated countOrdered By: Marilyn Stewart on 51-91-4711TZG (RBC) [Entitic vol]86.0 cBEnxdtp73-563YuhugsmquMercy Health St. Charles HospitalComment on above:Performed By: #### MG, CMP, CBC, LIPID #### [facility] [address] [place] [address] USAMagnesium [Mass/volume] in Serum or PlasmaOrdered By: Marilyn Stewart on 45-64-5440Dvqetyyyf [Mass/Vol]1.4 mg/dLLow1.9-2.7FMercy Health St. Rita's Medical CenterComment on above:Performed By: #### MG, CMP, CBC, LIPID #### [facility] [address] [place] [address] USAMucus [Presence] in Urine by AutomatedOrdered By: Marilyn Stewart on 21-98-5805Svwnp Auto Ql (U)Rare [LPF][facility] Nitrite Test strip Ql (U)Ordered By: Marilyn Stewart on 19-85-1773Cofwesm Ql (U) NegativeNegativeMercy Health St. Charles HospitalNo Panel InformationOrdered By: Vinay Matta on 32-03-2311Qjitjilih GFR (CKD-EPI)41.095 mL/MinMercy Health St. Charles HospitalPharmacy Creatinine Clearance (ChemN/AFMercy Health St. Rita's Medical CenterParathyrin.intact [Mass/volume] in Serum or PlasmaOrdered By: Marilyn Smithr on 32-68-1211Zsszpwmfxz.intact [Mass/Vol]48.7 pg/wB87-67NqmribfbhMercy Health St. Charles HospitalParathyroid Hormone Intacton 74-91-1400Bxuhzafsnfd Hormone Gdjwsr62.7 pg/aCRggack90-89Ddk [facility] Physician GroupComment on above:Result Comment: PERFORMED BY: [place] [address] PATHOLOGIST BLENDER CONVEYOR OPERATOR KARTHIK CHICAS M.D.Performed By: #### MG, CMP, CBC, LIPID #### [facility] [address] [place] [address] USAPhosphate [Mass/volume] in Serum or PlasmaOrdered By: Marilyn Terry on 29-98-7461Chxmuhavh [Mass/Vol]4.0 mg/dLNormal2.5-4.5FMercy Health St. Rita's Medical CenterComment on above:Result Comment: PERFORMED BY: [place] [address] PATHOLOGIST BLENDER CONVEYOR OPERATOR KARTHIK CHICAS M.D.Performed By: #### MG, CMP, CBC, LIPID #### [facility] [address] [place] [address] USAPlatelet mean volume [Entitic volume] in Blood by Automated countOrdered By: Marilyn Stewart on 94-74-2918Vawruyot mean volume (Bld) [Entitic vol]7.1 fLNormal6.3-10.7FMercy Health St. Rita's Medical CenterComment on above:Result Comment: PERFORMED BY: [place] [id number] PATHOLOGIST BLENDER CONVEYOR OPERATOR KARTHIK CHICAS M.D.Performed By: #### MG, CMP, CBC, LIPID #### [facility] [address] [place] [address] USAPlatelets [#/volume] in Blood by Automated countOrdered By: Marilyn Terry on 51-29-1809Lltobifxt (Bld) [#/Vol]141 10*3/cMIkq974-[address] Charles HospitalComment on above:Performed By: #### MG, CMP, CBC, LIPID #### [facility] [address] [place] [address] USAPotassium [Moles/volume] in Serum or PlasmaOrdered By: Vinay Bunting on 33-08-5757Mguhhwgxs [Moles/Vol]4.6 mmol/LNormal3.5-5.[address] Charles HospitalComment on above:Performed By: #### MG, CMP, CBC, LIPID #### [facility] [address] [place] [address] USAProtein Creat Ratio Ur Randomon 57-79-5044Hxvjctduzc, Urine (Random)63.00 mg/dLNormalThe [facility] Hospital Physician GroupComment on above: Order Comment: A1C IS NOT DUE UNTIL OCTOBER.Result Comment: No reference range establishedPerformed By: #### MG, CMP, CBC, LIPID #### [place] [address] USAUrine Protein/Creatinine Lcmcg321 mg/g{Cre}High0-200The [facility] Hospital Physician GroupComment on above:Order Comment: A1C IS NOT DUE UNTIL OCTOBER.Result Comment: PERFORMED BY: [place] [address] PATHOLOGIST BLENDER CONVEYOR OPERATOR KARTHIK CHICAS M.D.Performed By: #### MG, CMP, CBC, LIPID #### [place] [id number] USAProtein Test strip (U) [Mass/Vol]Ordered By: Marilyn Stewart on 03-04-1816Jceieve (U) [Mass/Vol]NegativeNegativeMercy Health St. Charles HospitalProtein [Mass/volume] in Serum or PlasmaOrdered By: Vinay Bunting on 25-06-3701Dypelef [Mass/Vol]5.8 g/dLLow6.4-8.9[facility] Comment on above:Performed By: #### MG, CMP, CBC, LIPID #### [place] [address] USAProtein [Mass/volume] in UrineOrdered By: Marilyn Stewart on 47-13-4692Jtzknvw (U) [Mass/Vol]14 mg/dLHigh0-9[facility] Comment on above:Order Comment: A1C IS NOT DUE UNTIL OCTOBER.Performed By: #### MG, CMP, CBC, LIPID #### [facility] [address] [place] [address] USASerum globulin measurement by calculation (mass/volume) Ordered By: Vinay Bunting on 75-22-8979Ocxuowkz (S) [Mass/Vol]2.0 g/dLNormal [facility] Charles HospitalComment on above:Performed By: #### MG, CMP, CBC, LIPID #### [facility] [address] [place] [address] USASerum or plasma albumin/globulin mass ratioOrdered By: Vinay Bunting on 90-60-6086Ayhedjy/Globulin [Mass ratio]1.9 {ratio}Normal [facility] HospitalComment on above:Performed By: #### MG, CMP, CBC, LIPID #### [facility] [address] [place] [address] USASerum or plasma anion gap determinationOrdered By: Vinay Bunting on 59-99-4609Ggfrh gap [Moles/Vol]9.2 mmol/LNormal6.0-15.0[facility] Charles HospitalComment on above:Performed By: #### MG, CMP, CBC, LIPID #### [facility] [address] [place] [address] USASerum or plasma total cholesterol/high density lipoprotein (HDL) cholesterol mass ratOrdered By: Vinay Bunting on 06-26-2025 Cholesterol.total/Cholesterol in HDL [Mass ratio]2.8 {ratio}Normal<5.0[facility] Charles HospitalComment on above:Result Comment: PERFORMED BY: [place] [address] PATHOLOGIST BLENDER CONVEYOR OPERATOR KARTHIK CHCIAS M.D.Performed By: #### A1C WTH eA, LIPID #### [place] [address] USASodium [Moles/volume] in Serum or PlasmaOrdered By: Vinay Bunting on 84-78-7188Dgthkf [Moles/Vol]140 mmol/JIyoift886-685NqgptfgggMercy Health St. Charles HospitalComment on above:Performed By: #### MG, CMP, CBC, LIPID #### [facility] [address] [place] [address] USASpecific gravity Test strip (U) [Rel density]Ordered By: Marilyn Stewart on 17-46-4494Jwpeiikz gravity (U) [Rel density]1.0161.001-1.[address] Charles HospitalTriglyceride [Mass/volume] in Serum or Plasma Ordered By: Vinay Bunting on 87-98-5581Hhlzoasqkehj [Mass/Vol]112 mg/dL0-[address] Charles HospitalComment on above:TRIG ATP III CLASSIFICATIONTRIG less than 150 mg/dL NormalTRIG 150-199 mg/dL Borderline highTRIG 200-500 mg/dL High TRIG greater than 500 mg/dL Very highStandard traceable to the Center for Disease Conrtrol and Prevention (CDC) test method. Urate [Mass/volume] in Serum or PlasmaOrdered By: Marilyn Stewart on 20-96-8788Fmvyp [Mass/Vol]3.7 mg/dLNormal2.3-6.6FMercy Health St. Rita's Medical CenterComment on above:Performed By: #### MG, CMP, CBC, LIPID #### [facility] [address] [place] [address] USAUrea nitrogen [Mass/volume] in Serum or PlasmaOrdered By: Vinay Bunting on 08-30-5503Togk nitrogen [Mass/Vol]33 mg/dLHigh7-25[facility] Charles HospitalComment on above:Performed By: #### MG, CMP, CBC, LIPID #### [facility] [address] [place] [address] USAUrine protein/creatinine ratioOrdered By: Marilyn Terry on 24-74-5260Rsnczpb/Creatinine (U) [Ratio]222 mg/g{Cre}High0-200[facility] Charles HospitalUrobilinogen Test strip (U) [Mass/Vol]Ordered By: Marilyn Terry on 71-11-1852Mcobnldfklai (U) [Mass/Vol]Normal mg/dLNormalMercy Health St. Charles HospitalVitamin D 25 Hydroxy Totalon 90-90-2090Sbsazke D 25 Hydroxy Total 61.6 ng/uSVqxdpy35-597Tzl [facility] Physician GroupComment on above:Result Comment: VITAMIN D STATUS 25(OH)VITAMIN D RANGE (ng/mL) Deficient <20 Insufficient 20 to <30 Sufficient 30 to 100 Reference: Albert Campo, Beltran LACKEY, et al. Evaluation,treatment, and prevention of vitamin D deficiency; an Endocrine Society clinical practice guideline. JCEM. 2010; 96(7):1911-. PERFORMED BY: [place] [id number] PATHOLOGIST BLENDER CONVEYOR OPERATOR KARTHIK CHICAS M.D.Performed By: #### MG, CMP, CBC, LIPID #### [facility] [address] [place] [address] USAVitamin D+Metabolites [Mass/volume] in Serum or Plasma Ordered By: Marilyn Stewart on 94-31-9386Ncflkwm D+Metabolites [Mass/Vol]61.6 ng/mL 30-100[facility] Charles HospitalComment on above:VITAMIN D STATUS 25(OH)VITAMIN D RANGE (ng/mL) Deficient <20 Insufficient 20 to <31Lnsnnmjovt89 to 100Reference: Albert Campo, Beltran LACKEY, et al. Evaluation,treatment, and prevention of vitamin D deficiency; an Endocrine Society clinical practice guideline. JCEM. 2010; 96(7):191-.pH of Urine by Test stripOrdered By: Marilyn Stewart on 24-10-8977mZ (U)6.0 [pH]Normal5.0-9.[address] Charles HospitalComment on above:Order Comment: A1C IS NOT DUE UNTIL OCTOBER.Performed By: #### MG, CMP, CBC, LIPID #### [facility] [address] [place] [address] USACNOVSPon [id number] (SP) Office (HEMASA) ANH TEJEDA ([id number]) 1950 F Date Time Provider Department 04/25/25 11:00 AM DAKSHA BRIDGES During your visit today, we recorded the following information about you: Temperature Pulse Respiration Blood pressure 97.9 degrees 84/minute 18/minute 158/78 Weight Height 100.9 kg 1.58 m Daksha Bridges PA-C 04/25/2025 11:19 AM Signed Hematology Progress Note PATIENT NAME: Anh Tejeda CLINIC NO.: [id number] ATTENDING PHYSICIAN: Henry Walker MD DATE OF [...] ?C (97.9 ?F) (Temporal) (more content not included)...NormalUniversity Hospitals Conneaut Medical CenterERYTHROPOIETIN/EPOon 04-19-2025 Erythropoietin (EPO) Qn26.7 [IU]/LHighUniversity Hospitals Health SystemErythropoietin (EPO) Qnon 96-71-3947Wcebvrlyeznssk and review of laboratory resultsAbnormalCleveland ClinicTest analyzed by the Acunu DxI method.[facility] CBC W Auto Differential panel (Bld)on 72-82-8028Wdkshlfat (Bld) [#/Vol]NINF [facility] Health SystemBasophils/100 WBC (Bld)0.2 %[facility] Hospitals Health SystemDifferential cell count method Nom (Bld)AutoCleveland ClinicEosinophils (Bld) [#/Vol]0.09 10*3/uL NINFClevelamerican healthcare systems ClinicEosinophils/100 WBC (Bld)1.6 %[facility] Hospitals Health SystemErythrocyte distribution width (RBC) [Ratio]16.4 %High11.5 - 15.0 %[facility] Hematocrit (Bld) [Volume fraction]32.9 %Low36.0 - 46.0 %[facility] Hemoglobin (Bld) [Mass/Vol]11 g/dLLow11.5 - 15.5 g/dLUniversity Hospitals Health SystemImmature granulocytes (Bld) [#/Vol]NINFClevelSelect Medical Specialty Hospital - YoungstownImmature granulocytes/100 WBC (Bld)0.4 %[facility] Hospitals Health SystemLymphocytes (Bld) [#/Vol]1.4 10*3/uLUniversity Hospitals Health System Lymphocytes/100 WBC (Bld)24.8 %[facility] HospitalH (RBC) [Entitic mass]29.5 pg 26.0 - 34.0 pgCUpper Valley Medical CenterMCHC (RBC) [Mass/Vol]33.4 g/dL30.5 - 36.0 g/dL [facility] HospitalV (RBC) [Entitic vol]88.2 fL80.0 - 100.0 fLCUpper Valley Medical Center Monocytes (Bld) [#/Vol]0.36 10*3/uLNINFUniversity Hospitals Health SystemMonocytes/100 WBC (Bld) 6.4 %[facility] Hospitals Health SystemNeutrophils (Bld) [#/Vol]3.77 10*3/[facility] Neutrophils/100 WBC (Bld)66.6 %[facility] Hospitals Health SystemNucleated RBC (Bld) [#/Vol]NINF [facility] Health SystemNucleated RBC/100 WBC (Bld) [Ratio]0 %/100 WBCUniversity Hospitals Health System Platelet mean volume (Bld) [Entitic vol]9 fL9.0 - 12.7 fLCUpper Valley Medical Center Platelets (Bld) [#/Vol]136 10*3/uLLowUniversity Hospitals Health SystemRBC (Bld) [#/Vol]3.73 10*6/uLLow3.90 - 5.20 m/[facility] DaytonWBC (Bld) [#/Vol]5.65 10*3/[facility] DaytonBasophils (Bld) [#/Vol]10*3/uLNormal<0.11CLake County Memorial Hospital [facility] Comment on above:Order Comment: Specimen Type: BLOOD SPECIMENOrdering Facility: [facility] Address:[address] [place] [address] Performed By: #### 61487-3, 25334-3 ####[facility] LABIA [id number] [place], [place] [address]Dcmstcqnm/100 WBC (Bld)0.2 %NormalUniversity Hospitals Conneaut Medical CenterComment on above:Order Comment: Specimen Type: BLOOD SPECIMENOrdering Facility: [facility] Address:[address], [place] [address]Zjkvxpzgc By: #### 65947-8, 34720-4 ####[facility] LABCLIA [id number] [place], [place] [address]Duekizeylgfl cell count method Nom (Bld)AutoNormal [facility] Medical CenterComsheridan community hospital on above:Order Comment: Specimen Type: BLOOD SPECIMENOrdering Facility: [facility] Address:[address] [place], [place] [address]Performed By: #### 24159-4, 39876-2 ####[facility] LABCLIA [id number] [place] [address] Eosinophils (Bld) [#/Vol]0.09 10*3/uLNormal<0.46[facility] Comment on above:Order Comment: Specimen Type: BLOOD SPECIMENOrdering Facility: [facility] Address:[address] [place] [address] Performed By: #### 78889-6, 69488-5 ####[facility] LABCLIA [id number] [place], [place] [address]Csssoagpjan/100 WBC (Bld)1.6 %NormalAdams County Regional Medical Center on above:Order Comment: Specimen Type: BLOOD SPECIMENOrdering Facility: [facility] Address:[address] [place], [place] [address]Performed By: #### 60526-8, 20949-7 ####[facility] LABCLIA [id number] [place], [place] [address]Xjivzipszfg distribution width (RBC) [Ratio]16.4 %High 11.5-15.0[facility] on above:Order Comment: Specimen Type: BLOOD SPECIMENOrdering Facility: [facility] Address:[address] [place], [place] [address]Performed By: #### 26579-9, 40061-2 ####[facility] LABCLIA [id number] [place], [place] [address]Izvqgzwnca (Bld) [Volume fraction]32.9 %Low36.0-46.0 [facility] on above:Order Comment: Specimen Type: BLOOD SPECIMENOrdering Facility: [facility] Address:[address] [place], [place] [address]Performed By: #### 24983-7, 61569-0 ####[facility] LABCLIA [id number] [place] [address] Hemoglobin (Bld) [Mass/Vol]11.0 g/dLLow11.5-15.5CLake [facility] Comment on above:Order Comment: Specimen Type: BLOOD SPECIMENOrdering Facility: [facility] Address:[address] [place] [address] Performed By: #### 74105-8, 68763-7 ####[facility] LABIA [id number] [place], [place] [address]Rjjxvpom granulocytes (Bld) [#/Vol]10*3/uLNormal<0.10[facility] on above:Order Comment: Specimen Type: BLOOD SPECIMENOrdering Facility: [facility] Address:[address] [place], [place] [address]Performed By: #### 47860- 8, 13160-9 ####[facility] LABIA [id number] [place], [place] [address]Kkaltcdm granulocytes/100 WBC (Bld)0.4 %Normal [facility] on above:Order Comment: Specimen Type: BLOOD SPECIMENOrdering Facility: [facility] Address:[address] [place], [place] [address]Performed By: #### 54935-0, 36344-5 ####[facility] LABIA [id number] [place] [address] Lymphocytes (Bld) [#/Vol]1.40 10*3/uLNormal1.00-4.00[facility] Comment on above:Order Comment: Specimen Type: BLOOD SPECIMENOrdering Facility: [facility] Address:[address] [place] [address] Performed By: #### 17067-7, 90108-0 ####[facility] LABCLIA [id number] [place], [place] [address]Kddslhncohd/100 WBC (Bld)24.8 %NormalAdams County Regional Medical Center on above:Order Comment: Specimen Type: BLOOD SPECIMENOrdering Facility: [facility] Address:[address] [place], [place] [address]Performed By: #### 26593-5, 46608-9 ####[facility] LABCLIA [id number] [place], [place] [address]CXW (RBC) [Entitic mass]29.5 deYltbsb99.0-34.0[facility] on above:Order Comment: Specimen Type: BLOOD SPECIMENOrdering Facility: [facility] Address:[address] [place], [place] [address]Performed By: #### 93259-2, 51721-0 ####[facility] LABCLIA [id number] [place], [place] [address]PEXC (RBC) [Mass/Vol]33.4 g/rQClfelx12.5-36.0[facility] on above:Order Comment: Specimen Type: BLOOD SPECIMENOrdering Facility: [facility] Address:[address] [place], [place] [address]Performed By: #### 43874-0, 68316-3 ####[facility] LABCLIA [id number] [place], [place] [address]QUG (RBC) [Entitic vol]88.2 fLNormal 80.0-100.0[facility] on above:Order Comment: Specimen Type: BLOOD SPECIMENOrdering Facility: [facility] Address:[address] [place], [place] [address]Performed By: #### 40090-3, 86822-4 ####[facility] LABCLIA [id number] [place], [place] [address]Ntehwpetk (Bld) [#/Vol]0.36 10*3/uLNormal<0.87[facility] on above:Order Comment: Specimen Type: BLOOD SPECIMENOrdering Facility: [facility] Address:[address] [place], [place] [address]Performed By: #### 84058-7, 73444-9 ####[facility] LABCLIA [id number] [place] [address] Monocytes/100 WBC (Bld)6.4 %NormalAdams County Regional Medical Center on above: Order Comment: Specimen Type: BLOOD SPECIMENOrdering Facility: [facility] Address:[address] [place], [place] [address]Performed By: #### 50446- 8, 25062-0 ####[facility] LABIA [id number] [place], [place] [address]Blcmerikqie (Bld) [#/Vol]3.77 10*3/uLNormal 1.45-7.50[facility] on above:Order Comment: Specimen Type: BLOOD SPECIMENOrdering Facility: [facility] Address:[address] [place], [place] [address]Performed By: #### 51607-2, 68095-7 ####[facility] LABIA [id number] [place], [place] [address]Sczfceuppby/100 WBC (Bld)66.6 %NormalAdams County Regional Medical Center on above:Order Comment: Specimen Type: BLOOD SPECIMENOrdering Facility: [facility] Address:[address] [place], [place] [address]Performed By: #### 59808-1, 36394-2 ####[facility] LABIA [id number] [place], [place] [address]Rjtmnywhr RBC (Bld) [#/Vol]10*3/uLNormal<0.01[facility] on above:Order Comment: Specimen Type: BLOOD SPECIMENOrdering Facility: [facility] Address:[address] [place], [place] [address]Performed By: #### 87924- 8, 49496-1 ####[facility] LABCLIA [id number] [place], [place] [address]Dmrvmqoou RBC/100 WBC (Bld) [Ratio]0.0 /100 WBC NormalAdams County Regional Medical Center on above:Order Comment: Specimen Type: BLOOD SPECIMENOrdering Facility: [facility] Address:[address] [place], [place] [address]Performed By: #### 56030-9, 28095-0 ####[facility] LABCLIA [id number] [place], [place] [address]Tysgdwdl mean volume (Bld) [Entitic vol]9.0 fLNormal9.0-12.7CSycamore Medical Center on above:Order Comment: Specimen Type: BLOOD SPECIMENOrdering Facility: [facility] Address:[address] [place], [place] [address]Performed By: #### 58151-3, 53886-2 ####[facility] LABCLIA [id number] [place] [address] Platelets (Bld) [#/Vol]136 10*3/aEKeg348-980IzbfdlidbAdams County Regional Medical Center on above:Order Comment: Specimen Type: BLOOD SPECIMENOrdering Facility: [facility] Address:[address] [place], [place] [address]Performed By: #### 67436-8, 81023-4 ####[facility] LABCLIA [id number] [place], [place] [address]AHT (Bld) [#/Vol]3.73 10*6/uLLow3.90-5.20 [facility] on above:Order Comment: Specimen Type: BLOOD SPECIMENOrdering Facility: [facility] Address:[address] [place], [place] [address]Performed By: #### 69377-9, 18748-4 ####[facility] LABCLIA [id number] [place], [place] [address]ZKA (Bld) [#/Vol]5.65 10*3/uLNormal3.70-11.00[facility] Medical CenterComment on above:Order Comment: Specimen Type: BLOOD SPECIMENOrdering Facility: [facility] Address:[address], [place] [address]Xgoevheke By: #### 33346-5, 02418-3 ####[facility] HOSPITALZANDRA [facility] LABCLIA [id number] [place], [place] [address]Kkjyryzybaepy metabolic 2000 panelOrdered By: Naida Bruce on 81-20-3213Vjhhcey [Mass/Vol]4.2 g/dL3.9 - 4.9 g/dLWarfield ClinicALP [Catalytic activity/Vol]157 U/LHigh34 - 123 U/LCleveland ClinicALT [Catalytic activity/Vol]17 U/L7 - 38 U/LCleveland ClinicAnion gap [Moles/Vol]10 mmol/L8 - 15 mmol/LCleveland ClinicAST [Catalytic activity/Vol]18 U/L13 - 35 U/L [facility] SystemBilirubin [Mass/Vol]0.8 mg/dL0.2 - 1.3 mg/dLUniversity Hospitals Health System Calcium [Mass/Vol]10 mg/dL8.5 - 10.2 mg/dLWarfield ClinicChloride [Moles/Vol] 102 mmol/L98 - 107 mmol/LCleveland ClinicCO2 [Moles/Vol]28 mmol/L22 - 30 mmol/L [facility] Health SystemCreatinine [Mass/Vol]1.16 mg/dLHigh0.58 - 0.96 mg/dLUniversity Hospitals Health SystemGFR/1.73 sq M.predicted among non-blacks MDRD [...] eGFRmay not accurately reflect actual GFR.Glucose [Mass/Vol]154 mg/mUUmig28 - 99 mg/dL [facility] on above:The [place] Diabetes Association (ADA) provides guidance for cutoff [...] Standards of Medical Care in Diabetes 2016, [place] [employer] Association. Diabetes Care. 2016.39(Suppl 1). Interpretation and review of laboratory resultsAbnormalCleveland ClinicPotassium [Moles/Vol]4.9 mmol/L3.7 - 5.1 mmol/LClevelamerican healthcare systems ClinicProtein [Mass/Vol]6.4 g/dL 6.3 - 8.0 g/dLMain Campus Medical Centerodium [Moles/Vol]140 mmol/L136 - 144 mmol/L [facility] Health SystemUrea nitrogen [Mass/Vol]33 mg/dLHigh7 - 21 mg/dLKindred HealthcareComprehensive metabolic 2000 panelon 08-23-1542Ymeqylv [Mass/Vol]4.2 g/dLNormal3.9-4.9CSycamore Medical Center on above:Order Comment: Specimen Type: BLOOD SPECIMEN [facility] Address: [address] [place], [place] [address]Performed By: #### 41942-5, 2276-4 #### [facility] CLIA [id number] [address] [place] [address] [place] AMERICAALP [Catalytic activity/Vol] 157 U/ABoit88-313AwnjotjodAdams County Regional Medical Center on above:Order Comment: Specimen Type: BLOOD SPECIMEN [facility] Address: [address] [place], [place] [address]Performed By: #### 09503-4, 2276-02 #### [facility] CLIA [id number] [address] [place], [place] [address] [place] AMERICAALT [Catalytic activity/Vol] 17 U/LNormal7-38[facility] on above:Order Comment: Specimen Type: BLOOD SPECIMEN [facility] Address: [address] [place], [place] [address]Performed By: #### 64856-6, 2276-02 #### [facility] CLIA [id number] [address] [place] [address] [place] AMERICAAnion gap [Moles/Vol]10 mmol/LNormal8-15[facility] on above:Order Comment: Specimen Type: BLOOD SPECIMEN [facility] Address: [address] [place], [place] [address]Performed By: #### 12098-9, 2276-02 #### [facility] CLIA [id number] [address] [place] [address] [place] AMERICAAST [Catalytic activity/Vol] 18 U/VKwuqub48-53EvnmiyqclAdams County Regional Medical Center on above:Order Comment: Specimen Type: BLOOD SPECIMEN [facility] Address: [address] [place], [place] [address]Performed By: #### 38207-5, 2276-02 #### [facility] CLIA [id number] [address] [place], [place] [address] [place] AMERICABilirubin [Mass/Vol]0.8 mg/dLNormal0.2-1.3CSycamore Medical Center on above:Order Comment: Specimen Type: BLOOD SPECIMEN [facility] Address: [address] [place], [place] [address]Performed By: #### 16910-9, 2275- #### [facility] CLIA [id number] [address] [place] [address] [place] AMERICACalcium [Mass/Vol]10.0 mg/dL Normal8.5-10.2CSycamore Medical Center on above:Order Comment: Specimen Type: BLOOD SPECIMEN [facility] Address: [address] [place], [place] [address]Performed By: #### 11327-0, 2276-02 #### [facility] CLIA [id number] [address] [place] [address] [place] AMERICAChloride [Moles/Vol]102 mmol/AXfnqwl11-570UormolbtrAdams County Regional Medical Center on above:Order Comment: Specimen Type: BLOOD SPECIMEN [facility] Address: [address] [place], [place] [address]Performed By: #### 88730-2, 2276-02 #### [facility] CLIA [id number] [address] [place] [address] [place] AMERICACO2 [Moles/Vol]28 mmol/L Lfhqpc80-01RhkllskqyAdams County Regional Medical Center on above:Order Comment: Specimen Type: BLOOD SPECIMEN [facility] Address: [address] [place], [place] [address]Performed By: #### 54545-6, 2276-02 #### [facility] CLIA [id number] [address] [place] [address] [place] AMERICACreatinine [Mass/Vol]1.16 mg/dLHigh0.58-0.96[facility] on above:Order Comment: Specimen Type: BLOOD SPECIMEN [facility] Address: [address] [place], [place] [address]Performed By: #### 18087-9, 2276-02 #### [facility] CLIA [id number] [address] [place] [address] [place] AMERICACreatinine and Glomerular filtration rate.predicted panel (S/P/Bld)49 mL/min/1.73m???Low>=60[facility] on above:Order Comment: Specimen Type: BLOOD SPECIMEN [facility] Address: [address] [place], [place] [address]Result Comment: Estimated Glomerular Filtration Rate (eGFR) is [...] not accurately reflect actual GFR.Performed By: #### 34497-8, 2276-4 #### [facility] CLIA [id number] [address] [place] [address] [place] AMERICAGlucose [Mass/Vol]154 mg/dL Pbam00-01DhrujlxfwAdams County Regional Medical Center on above:Order Comment: Specimen Type: BLOOD SPECIMEN [facility] Address: [address] [place], [place] [address]Result Comment: The [place] Diabetes Association (ADA) provides guidance for cutoff [...] Standards of Medical Care in Diabetes 2016, [place] [employer] Association. Diabetes Care. 2016.39(Suppl 1).Performed By: #### 10129-3, 2276-4 #### [facility] CLIA [id number] [address] [place], [place] [address] [place] AMERICAPotassium [Moles/Vol]4.9 mmol/LNormal3.7-5.1[facility] ClevelandComment on above:Order Comment: Specimen Type: BLOOD SPECIMEN [facility] Address: [address] [place], [place] [address]Performed By: #### 58891-6, 6-4 #### [facility] CLIA [id number] [address] [place] [address] [place] AMERICAProtein [Mass/Vol]6.4 g/dL Normal6.3-8.0[facility] on above:Order Comment: Specimen Type: BLOOD SPECIMEN [facility] Address: [address] [place], [place] [address]Performed By: #### 49096-8, 2275-4 #### [facility] IA [id number] [address] [place] [address] [place] AMERICASodium [Moles/Vol]140 mmol/L Aatfcg680-452WkjiyspoyAdams County Regional Medical Center on above:Order Comment: Specimen Type: BLOOD SPECIMEN [facility] Address: [address] [place], [place] [address]Performed By: #### 13896-3, 2275-4 #### [facility] IA [id number] [address] [place] [address] [place] AMERICAUrea nitrogen [Mass/Vol]33 mg/dLHigh7-21[facility] on above:Order Comment: Specimen Type: BLOOD SPECIMEN [facility] Address: [address] [place], [place] [address]Performed By: #### 30351-0, 2275-4 #### [facility] CLIA [id number] [address] [place] [address] [place] AMERICAEPO SerPl-aCncon 04-18-2025 Erythropoietin (EPO) Qn26.7 mIU/mLHigh2.6-18.5CSycamore Medical Center on above:Order Comment: Specimen Type: BLOOD SPECIMEN [facility] Address: [address] [place], [place] [address]Performed By: #### 50891-2, 2276-4 #### [facility] CLIA [id number] [address] [place] [address] [place] AMERICAFERRITINon 04-18-2025 Ferritin [Mass/Vol]398 ng/yLQmqb08.7 - 205.1 ng/mLCriverview health instituteand ClinicFOLATE, SERUM on 96-40-2590Fjcpdm [Mass/Vol]ng/mL4.7 - PINF ng/mLClevelSelect Medical Specialty Hospital - YoungstownComment on above:A result of > 20 ng/mL is not necessarily indicative of a pathologic or treatable condition: it reflects a limitation of the test methodology. Assay reference range: 4.8 to 24.2 ng/mL. Suitable for detection of folate deficiency. Reference: Folate III (Folate III) [package insert V 1.0 [place]]. [facility], [place], [place]: September 2015. Ferritin SerPl-mCncon 71-10-6487Sfgjwbry [Mass/Vol]398.0 ng/wHQrhp81.7-205.1 [facility] on above:Order Comment: Specimen Type: BLOOD SPECIMENOrdering Facility: [facility] Address:[address] [place], [place] [address]Performed By: #### 55570-8, 2276-4, 3016-3, 4542-7 ####[facility] LABCLIA [id number] [place] [address] [place] AMERICAFerritin [Mass/Vol]on 04-18-2025 Interpretation and review of laboratory resultsAbnormalCleveland ClinicFolate SerPl-mCncon 52-42-9454Bqdzxp [Mass/Vol]ng/mLNormal>4.7CSycamore Medical Center on above:Order Comment: Specimen Type: BLOOD SPECIMENOrdering Facility: [facility] Address:[address] [place], [place] [address]Result Comment: A result of > 20 ng/mL is not necessarily indicative of a pathologic or treatable condition: it reflects a limitation of the test methodology. Assay reference range: 4.8 to 24.2 ng/mL. Suitable for detection of folate deficiency. Reference: Folate III (Folate III) [package insert V 1.0 [place]]. [facility], [place], [place]: September 2015.Performed By: #### 2885-2, 2132-9, 2284-8 ####[facility] LABCLIA [id number] [address] [address] [place] OF [facility]INTE HOSPITALHAPTOGLOBINon 04-18-2025 Haptoglobin [Mass/Vol]155 mg/dL31 - 238 mg/dLUniversity Hospitals Health SystemHaptoglob SerPl-mCncon 76-47-9046Flvkidrioqv [Mass/Vol]155 mg/nNKfevot86-147BdioawxjpAdams County Regional [facility] Center on above:Order Comment: Specimen Type: BLOOD SPECIMENOrdering Facility: [facility] Address:[address] [place], [place] [address]Performed By: #### 47619-3, 2276-4, 3016-3, 4542-7 ####[facility] LABCLIA [id number] [place] [address] [place] AMERICAIMMUNOFIXATION SCREEN, SERUMon 60-99-7807TKW RESULTNo M protein is identified.NormalNo M protein is identified. [facility] on above:Order Comment: Specimen Type: BLOOD SPECIMEN [facility] Address: [address] [place], [place] [address]Performed By: #### 46512-6, 6-4 #### [facility] CLIA [id number] [address] [place] [address] [place] AMERICASTAFF REVIEW (MPA)Reviewed by Mo Gomes MD, Ph.D ([id number])[facility] on above:Order Comment: Specimen Type: BLOOD SPECIMEN [facility] Address: [address] [place], [place] [address]Performed By: #### 04110-3, 6-4 #### [facility] CLIA [id number] [address] [place] [address] [place] AMERICAIMMUNOGLOBULINS,IGG,IGA,IGM on 56-21-1093JqB [Mass/Vol]48 mg/dAOci47-059XcnxsgrgxAdams [facility] Center on above:Order Comment: Specimen Type: BLOOD SPECIMEN [facility] Address: [address] [place], [place] [address]Performed By: #### 41411-9, 6-4 #### [facility] CLIA [id number] [address] [place] [address] [place] AMERICAIgG [Mass/Vol]682 mg/dLLow 700-1600[facility] on above:Order Comment: Specimen Type: BLOOD SPECIMEN [facility] Address: [address] [place], [place] [address]Performed By: #### 39219-5, 6-4 #### [facility] CLIA [id number] [address] [place] [address] [place] AMERICAIgM [Mass/Vol]42 mg/dLNormal 40-230[facility] on above:Order Comment: Specimen Type: BLOOD SPECIMEN [facility] Address: [address] [place], [place] [address]Performed By: #### 99529-6, 6-4 #### [facility] CLIA [id number] [address] [place] [address] [place] AMERICAIron and Iron binding capacity panelon 94-78-8322Uqwr [Mass/Vol]73 ug/dL41 - 186 ug/dLUniversity Hospitals Health System Iron binding capacity [Mass/Vol]336 ug/dL232 - 386 ug/dLUniversity Hospitals Health System Iron/TIBC [Molar ratio]21.7 %15.0 - 57.0 %[facility] Hospitals Health SystemIron [Mass/Vol]73 ug/pZBswmsw77-115YflpfdvxkAdams County Regional [facility] Center on above:Order Comment: Specimen Type: BLOOD SPECIMENOrdering Facility: [facility] Address:[address] [place], [place] [address]Performed By: #### 76120-7, 6-4, 3016-3, 4542-7 ####[facility] LABCLIA [id number] [place] [address] [place] AMERICAIron binding capacity [Mass/Vol]336 ug/oVKhsvcs903-436JfhqeozojAdams County Regional Medical Center on above:Order Comment: Specimen Type: BLOOD SPECIMENOrdering Facility: [facility] Address:[address] [place], [place] [address]Performed By: #### 24920- 8, 6-4, 3016-3, 4542-7 ####[facility] LABCLIA [id number] [place] [address] [place] Iron/TIBC [Molar ratio]21.7 %Txjfnv04.0-57.0[facility] on above:Order Comment: Specimen Type: BLOOD SPECIMENOrdering Facility: [facility] Address:[address] [place], [place] [address]Performed By: #### 25746-2, 6-4, 3016-3, 4542-7 ####[facility] [place] LABIA [id number] [place] [address] [place] KAPPA/SAMANIE[place],FREE,SERon [id number] light chains.kappa.free (S) [Mass/Vol]28.2 mg/LHigh3.3-19.4CS[facility] on above:Order Comment: Specimen Type: BLOOD SPECIMEN Ordering Facility: [facility] Address: [address] [place], [place] [address]Result Comment: Rarely, increased serum free light chains levels may not be detected or accurately quantified due to prozone phenomenon or in high viscosity samples using this immunoturbidimetric assay. Correlation with other laboratory results and clinical findings is recommended. The Laura Free Light Chain was performed using the Binding Site Optilite immunoturbidimetric method. Result obtained with different assay methods or kits cannot be used interchangeably.Performed By: #### 80736-0, 6-4 #### [facility] [facility] CLIA [id number] [address] [place] [address] [place] OF AMERICAImmunoglobulin light chains.kappa/Immunoglobulin light chains.lambda (S) [Mass ratio]1.16Normal 0.26-1.65[facility] on above:Order Comment: Specimen Type: BLOOD SPECIMEN Ordering Facility: [facility] Address: [address] [place], [place] [address]Performed By: #### 94535-6, 2276-02 #### [facility] CLIA [id number] [address] [place] [address] [place] AMERICAImmunoglobulin light chains.lambda.free [Mass/Vol]24.4 mg/LNormal5.7-26.3CLake [facility] Comment on above:Order Comment: Specimen Type: BLOOD SPECIMEN Ordering Facility: [facility] Address: [address] [place], [place] [address]Result Comment: Rarely, increased serum free light chains [...] kits cannot be used interchangeably.Performed By: #### 00737-1, 2276-02 #### [facility] CLIA [id number] [address] [place] [address] [place] OF AMERICALACTATE DEHYDROGENASEon 72-16-6668OGJ [Catalytic activity/Vol]236 U/XQrpz429 - 214 U/LCUpper [facility] LDH SerPl-cCncon 00-29-6366JEK [Catalytic activity/Vol]236 U/LVopx775-340 [facility] on above:Order Comment: Specimen Type: BLOOD SPECIMEN [facility] Facility: [facility] Address: [address] [place], [place] [address]Performed By: #### 90061-4, 2276-02 #### [facility] CLIA [id number] [address] [place] [address] [place] OF AMERICALDH [Catalytic activity/Vol] on 98-53-4442Uprjnystmcuuts and review of laboratory resultsAbnormalCleveland Kettering Health DaytonNo Panel Informationon 66-14-0613Yhgiybkxx Clinic Interpretation and review of laboratory resultsNormalCleveland Kettering Health DaytonInterpretation and review of laboratory resultsNormalCriverview health instituteand Clinic [facility] ClinicInterpretation and review of laboratory resultsAbnormalCSelect Medical OhioHealth Rehabilitation HospitalPROTEIN ELECTROPHORESIS SERUM (P)on 90-35-2657Ywhcmyh [Mass/Vol]3.85 g/dLNormal3.43-5.41[facility] on above: Order Comment: Specimen Type: BLOOD SPECIMENOrdering Facility: [facility] Address:[address] [place], [place] [address]Performed By: #### [id number] ####[facility]CLIA [id number] [place] [address] [place] OF AMERICAAlpha 1 globulin Elph [Mass/Vol]0.37 g/dLNormal0.18-0.43[facility] on above: Order Comment: Specimen Type: BLOOD SPECIMENOrdering Facility: [facility] Address:[address] [place], [place] [address]Performed By: #### [id number] ####[facility]CLIA [id number] [place] [address] [place] AMERICAAlpha 2 globulin Elph [Mass/Vol]0.78 g/dLNormal0.42-0.98[facility] on above: Order Comment: Specimen Type: BLOOD SPECIMENOrdering Facility: [facility] Address:[address] [place], [place] [address]Performed By: #### [id number] ####[facility]CLIA [id number] [place] [address] [place] AMERICABeta globulin Elph [Mass/Vol]0.67 g/dLNormal0.61-1.17[facility] on above: Order Comment: Specimen Type: BLOOD SPECIMENOrdering Facility: [facility] Address:[address] [place], [place] [address]Performed By: #### [id number] ####[facility]CLIA [id number] [place] [address] [place] AMERICAGamma globulin Elph [Mass/Vol]0.54 g/dLNormal0.53-1.51[facility] on above: Order Comment: Specimen Type: BLOOD SPECIMENOrdering Facility: [facility] Address:[address] [place], [place] [address]Performed By: #### [id number] ####[facility]IA [id number] [place] [address] [place] OF AMERICAM-PROTEIN LOCATION NormalAd[facility] on above:Order Comment: Specimen Type: BLOOD SPECIMENOrdering Facility: [facility] Address:[address] [place], [place] [address]Result Comment: Not Applicable.Performed By: #### [id number] ####[facility]IA [id number] [place] [address] [place] OF AMERICAProtein Fractions [Interp]No definitive M protein is identified on protein electrophoresis.Normal No definitive M protein is identified on protein electrophoresis.[facility] on above:Order Comment: Specimen Type: BLOOD SPECIMENOrdering Facility: [facility] Address:[address] [place], [place] [address]Performed By: #### [id number] ####[facility]IA [id number] [place] [address] [place] AMERICAProtein.monoclonal Elph [Mass/Vol]0.00 g/dLNormal<=0.00[facility] on above:Order Comment: Specimen Type: BLOOD SPECIMENOrdering Facility: [facility] Address:[address] [place] [address]Ydxouwhye By: #### [id number] ####[facility] LABCLIA [id number] [place] [address] [facility] SPE STAFF REVIEWReviewed by Mo Gomes MD, Ph.D ([id number])[facility] on above:Order Comment: Specimen Type: BLOOD SPECIMENOrdering Facility: [facility] Address:[address] [place], [place] [address]Performed By: #### [id number] ####[facility] LABCLIA [id number] [place] [address] [facility] AMERICAProt SerPl-mCncon 09-09-7961Qktxnyp [Mass/Vol]6.2 g/dLLow6.3-8.0 [facility] on above:Order Comment: Specimen Type: BLOOD SPECIMENOrdering Facility: [facility] Address:[address] [place], [place] [address]Performed By: #### 2885-2, 2132-9, 2284-8 ####[facility]IA [id number] [address]ETRETICULOCYTE COUNTon 56-91-9182Xeisddfdciefm (Bld) [#/Vol]0.154 10*3/uLHighUniversity Hospitals Health SystemRetmayo clinic [place] ([place]) #on 20-68-9726Vnqstnsbsloec (Bld) [#/Vol]0.74391 10*3/uLHigh0.018-0.100[facility] on above:Order Comment: Specimen Type: BLOOD SPECIMENOrdering Facility: [facility] Address:[address] [place], [place] [address]Performed By: #### 59694-6, 64486-4 ####[facility] LABCLIA [id number] [place], [place] [address]Ybrcmccdgxbbn (Bld) [#/Vol]on 04-18-2025 Reticulocytes/100 RBC (Bld)4.1 %High0.4 - 2.0 %[facility] Hospitals Health SystemReticulocytes/100 RBC (Bld)4.1 %High0.4-2.0[facility] on above:Order Comment: Specimen Type: BLOOD SPECIMENOrdering Facility: [facility] Address:[address] [place], [place] [address]Performed By: #### 69060- 8, 60303-4 ####[facility] LABCLIA [id number] [place], [place] [address]BHGSUMJ STIMULATING HORMONEon 43-67-4679TFX Qn1.25 m[IU]/LCleveland [facility] Qnon 89-45-5548Jycyljbjlirdtr and review of laboratory resultsNormalCPremier Health SerPl-aCncon 56-10-2084FWU Qn1.250 m[IU]/LNormal0.270-4.200[facility] on above:Order Comment: Specimen Type: BLOOD SPECIMENOrdering Facility: [facility] Address:[address] [place], [place] [address]Performed By: #### 12081- 8, 2276-4, 3016-3, 4542-7 ####[facility] LABCLIA [id number] [place] [address] [place] OF AMERICAVITAMIN B12on 31-46-7245Xunyvjhie (Vitamin B12) [Mass/Vol]854 pg/mL232 - 1245 pg/mL [facility] Hospitals Health SystemVit B12 SerPl-mCncon 60-37-9170Osaapuild (Vitamin B12) [Mass/Vol]854 pg/zSRppkeq053-8794DvuabzmebSycamore Medical Center on above: Order Comment: Specimen Type: BLOOD SPECIMENOrdering Facility: [facility] Address:[address] [place], [place] [address]Performed By: #### 2885- 2, 2132-9, 2284-8 ####[facility] LABCLIA [id number] [place] [address] [place] AMERICACB W Auto Differential panel (Bld)on 10-14-5891Aluhxyuxd (Bld) [#/Vol]10*3/uLNormal<0.11 [facility] on above:Order Comment: Specimen Type: BLOOD SPECIMEN [facility] Address: [address] [place], [place] [address]Performed By: #### 18703-6, 2275- #### [facility] CLIA [id number] [address] [place] [address] [place] AMERICABasophils/100 WBC (Bld)0.2 % [facility] on above:Order Comment: Specimen Type: BLOOD SPECIMEN [facility] Address: [address] [place], [place] [address]Performed By: #### 98518-1, 2276-02 #### [facility] CLIA [id number] [address] [place] [address] [place] AMERICADifferential cell count method Nom (Bld)AutoNormalCSycamore Medical Center on above:Order Comment: Specimen Type: BLOOD SPECIMEN [facility] Address: [address] [place], [place] [address]Performed By: #### 85019-6, 2276-02 #### [facility] CLIA [id number] [address] [place] [address] [place] AMERICAEosinophils (Bld) [#/Vol] 0.12 10*3/uLNormal<0.46[facility] on above:Order Comment: Specimen Type: BLOOD SPECIMEN [facility] Address: [address] [place], [place] [address]Performed By: #### 10698-6, 2276-02 #### [facility] CLIA [id number] [address] [place] [address] [place] AMERICAEosinophils/100 WBC (Bld)2.3 %[facility] on above:Order Comment: Specimen Type: BLOOD SPECIMEN [facility] Address: [address] [place], [place] [address]Performed By: #### 61458-7, 2275-4 #### [facility] CLIA [id number] [address] [place] [address] [place] AMERICAErythrocyte distribution width (RBC) [Ratio]16.1 %High11.5-15.0[facility] on above:Order Comment: Specimen Type: BLOOD SPECIMEN [facility] Address: [address] [place], [place] [address]Performed By: #### 02627-8, 4 #### [facility] CLIA [id number] [address] [place] [address] [place] AMERICAHematocrit (Bld) [Volume fraction]30.4 %Low36.0-46.0[facility] on above:Order Comment: Specimen Type: BLOOD SPECIMEN [facility] Address: [address] [place], [place] [address]Performed By: #### 08603-9, 4 #### [facility] CLIA [id number] [address] [place] [address] [place] AMERICAHemoglobin (Bld) [Mass/Vol] 10.2 g/dLLow11.5-15.5CSycamore Medical Center on above:Order Comment: Specimen Type: BLOOD SPECIMEN [facility] Address: [address] [place], [place] [address]Performed By: #### 15632-6, 2275-4 #### [facility] CLIA [id number] [address] [place] [address] [place] AMERICAImmature granulocytes (Bld) [#/Vol]10*3/uLNormal<0.10[facility] on above:Order Comment: Specimen Type: BLOOD SPECIMEN [facility] Address: [address] [place], [place] [address]Performed By: #### 25758-7, 2276-02 #### [facility] CLIA [id number] [address] [place] [address] [place] AMERICAImmature granulocytes/100 WBC (Bld)0.4 %NormalAdams County Regional Medical Center on above:Order Comment: Specimen Type: BLOOD SPECIMEN [facility] Address: [address] [place], [place] [address]Performed By: #### 19359-1, 2276-02 #### [facility] CLIA [id number] [address] [place] [address] [place] AMERICALymphocytes (Bld) [#/Vol] 1.31 10*3/uLNormal1.00-4.00[facility] on above:Order Comment: Specimen Type: BLOOD SPECIMEN [facility] Address: [address] [place], [place] [address]Performed By: #### 20510-0, 2276-02 #### [facility] CLIA [id number] [address] [place] [address] [place] AMERICALymphocytes/100 WBC (Bld) 24.8 %NormalAdams County Regional Medical Center on above:Order Comment: Specimen Type: BLOOD SPECIMEN [facility] Address: [address] [place], [place] [address]Performed By: #### 58204-6, 2276-02 #### [facility] CLIA [id number] [address] [place] [address] [place] AMERICAMCH (RBC) [Entitic mass]29.6 ujFlhdkp42.0-34.0[facility] on above:Order Comment: Specimen Type: BLOOD SPECIMEN [facility] Address: [address] [place], [place] [address]Performed By: #### 26008-1, 2276-02 #### [facility] CLIA [id number] [address] [place], [place] [address] [place] OF AMERICAMCHC (RBC) [Mass/Vol]33.6 g/oSJbidut73.5-36.0[facility] on above:Order Comment: Specimen Type: BLOOD SPECIMEN [facility] Address: [address] [place], [place] [address]Performed By: #### 41549-5, 2276-02 #### [facility] CLIA [id number] [address] [place] [address] [place] AMERICAMCV (RBC) [Entitic vol]88.1 oBLbricb48.0-100.0[facility] on above:Order Comment: Specimen Type: BLOOD SPECIMEN [facility] Address: [address] [place], [place] [address]Performed By: #### 41553-9, 2276-02 #### [facility] CLIA [id number] [address] [place] [address] [place] AMERICAMonocytes (Bld) [#/Vol]0.28 10*3/uLNormal<0.87[facility] on above:Order Comment: Specimen Type: BLOOD SPECIMEN [facility] Address: [address] [place], [place] [address]Performed By: #### 81326-9, 2276-02 #### [facility] CLIA [id number] [address] [place] [address] [place] AMERICAMonocytes/100 WBC (Bld)5.3 % NormalAdams County Regional Medical Center on above:Order Comment: Specimen Type: BLOOD SPECIMEN [facility] Address: [address] [place], [place] [address]Performed By: #### 24852-2, 2276-02 #### [facility] CLIA [id number] [address] [place] [address] [place] AMERICANeutrophils (Bld) [#/Vol] 3.54 10*3/uLNormal1.45-7.50[facility] on above:Order Comment: Specimen Type: BLOOD SPECIMEN [facility] Address: [address] [place], [place] [address]Performed By: #### 34137-4, 6-4 #### [facility] CLIA [id number] [address] [place] [address] [place] AMERICANeutrophils/100 WBC (Bld) 67.0 %NormalAdams County Regional Medical Center on above:Order Comment: Specimen Type: BLOOD SPECIMEN [facility] Address: [address] [place], [place] [address]Performed By: #### 01433-6, 2275-4 #### [facility] CLIA [id number] [address] [place] [address] [place] AMERICANucleated RBC (Bld) [#/Vol] 10*3/uLNormal<0.01[facility] on above:Order Comment: Specimen Type: BLOOD SPECIMEN [facility] Address: [address] [place], [place] [address]Performed By: #### 78557-5, 2275-4 #### [facility] CLIA [id number] [address] [place] [address] [place] AMERICANucleated RBC/100 WBC (Bld) [Ratio]0.0 /100 WBCNormalCSycamore Medical Center on above:Order Comment: Specimen Type: BLOOD SPECIMEN [facility] Address: [address] [place], [place] [address]Performed By: #### 05942-2, 2275-4 #### [facility] CLIA [id number] [address] [place] [address] [place] AMERICAPlatelet mean volume (Bld) [Entitic vol]9.1 fLNormal9.0-12.7CSycamore Medical Center on above: Order Comment: Specimen Type: BLOOD SPECIMEN [facility] Address: [address] [place], [place] [address]Performed By: #### 96854-4, 6-4 #### [facility] CLIA [id number] [address] [place] [address] OF AMERICAPlatelets (Bld) [#/Vol]136 10*3/oYDtp856-733HhwxkhgzpAdams County Regional Medical Center on above:Order Comment: Specimen Type: BLOOD SPECIMEN [facility] Address: [address] [place], [place] [address]Performed By: #### 24370-0, 2275-4 #### [facility] CLIA [id number] [address] [place], [place] [address]RBC (Bld) [#/Vol]3.45 10*6/uLLow3.90-5.20[facility] on above:Order Comment: Specimen Type: BLOOD SPECIMEN [facility] Address: [address] [place], [place] [address]Performed By: #### 37027-7, 2275-4 #### [facility] CLIA [id number] [address] [place], [place] [address]WBC (Bld) [#/Vol]5.28 10*3/uLNormal3.70-11.00[facility] on above:Order Comment: Specimen Type: BLOOD SPECIMEN [facility] Address: [address] [place], [place] [address]Performed By: #### 55433-5, 2275-4 #### [facility] CLIA [id number] [address] [place] [address] [place] AMERICACNOVSPon 83-15-1797WBJAAK Visit (SP) Office (HEMASA) ANH TEJEDA ([id number]) 1950 F Date Time Provider Department 04/07/25 2:00 PM DAKSHA BRIDGES During your visit today, we recorded the following information about you: Temperature Pulse Respiration Blood pressure 97 degrees 74/minute 18/minute 130/69 Weight Height 101.1 kg 1.58 m Daksha Bridges PA-C 04/07/2025 2:52 PM Signed Hematology Progress Note PATIENT NAME: Anh Tejeda CLINIC NO.: [id number] ATTENDING PHYSICIAN: Henry Walker MD DATE OF [...] for prolonged bleeding, bruising (more content not included)...NormalUniversity Hospitals Conneaut Medical CenterComprehensive metabolic 2000 panelon 66-86-7294Dppjxdw [Mass/Vol]4.0 g/dLNormal3.9-4.9CSycamore Medical Center on above:Order Comment: Specimen Type: BLOOD SPECIMENOrdering Facility: [facility] Address:[address] [place], [place] [address]Performed By: #### 38571-0 ####[facility] LABCLIA [id number] [place], [place] [address]URB [Catalytic activity/Vol]141 U/RWcmk43-446UpgfjwqkoAdams County Regional Medical Center on above:Order Comment: Specimen Type: BLOOD SPECIMENOrdering Facility: [facility] Address:[address] [place], [place] [address]Performed By: #### 30371-9 ####[facility] LABCLIA [id number] [place] [address] ALT [Catalytic activity/Vol]15 U/LNormal7-38[facility] on above:Order Comment: Specimen Type: BLOOD SPECIMENOrdering Facility: [facility] Address:[address] [place], [place] [address]Performed By: #### 34861-3 ####[facility] HOSPITALZANDRA [facility] LABCLIA [id number] SONIA GARCIATUBA CITY REGIONAL HEALTH [place] [address]Zxttb gap [Moles/Vol]10 mmol/LNormal8-15[facility] on above:Order Comment: Specimen Type: BLOOD SPECIMENOrdering Facility: [facility] Address:[address] [place], [place] [address]Performed By: #### 75000-1 ####[facility] LABCLIA [id number] SONIA GONZALESTUBA CITY REGIONAL HEALTH CARE CORPORATIONRITOBLOOMINGTON, [place] [address]OZC [Catalytic activity/Vol]17 U/DOrzdbi05-27JggmnaletAdams County Regional Medical Center on above:Order Comment: Specimen Type: BLOOD SPECIMENOrdering Facility: [facility] Address:[address] [place], [place] [address]Performed By: #### 20007-5 ####[facility] LABCLIA [id number] [facility] [place] [address] Bilirubin [Mass/Vol]0.7 mg/dLNormal0.2-1.3CSycamore Medical Center on above:Order Comment: Specimen Type: BLOOD SPECIMENOrdering Facility: [facility] Address:[address] [place], [place] [address]Performed By: #### 11669-3 ####[facility] LABCLIA [id number] [place] [address]Qguldti [Mass/Vol]9.3 mg/dLNormal8.5-10.2CSycamore Medical Center on above:Order Comment: Specimen Type: BLOOD SPECIMENOrdering Facility: [facility] Address:[address] [place], [place] [address]Performed By: #### 43491-0 ####[facility] LABCLIA [id number] ALEX JANETTUBA CITY REGIONAL HEALTH CARE CORPORATIONRITOBLOOMINGTON, [place] [address]Kuahuiou [Moles/Vol]105 mmol/BVtnhgp04-051EnzhfssztAdams County [facility] on above: Order Comment: Specimen Type: BLOOD SPECIMENOrdering Facility: [facility] Address:[address] [place], [place] [address]Performed By: #### 35076- 8 ####[facility] LABCLIA [id number] [place], [place] [address]XU8 [Moles/Vol]26 mmol/HEgrrwp60-74LwchbqiypAdams County Regional [facility] Center on above:Order Comment: Specimen Type: BLOOD SPECIMENOrdering Facility: [facility] Address:[address] [place], [place] [address]Performed By: #### 73731-4 ####[facility] LABCLIA [id number] [place], [place] [address]Ojmvfmpiow [Mass/Vol]1.16 mg/dL High0.58-0.96[facility] on above:Order Comment: Specimen Type: BLOOD SPECIMENOrdering Facility: [facility] Address:[address] [place], [place] [address]Performed By: #### 56861-0 ####[facility] LABIA [id number] [place] [address] Creatinine and Glomerular filtration rate.predicted panel (S/P/Bld)49 mL/min/1.73m???Low>=60[facility] on above:Order Comment: Specimen Type: BLOOD SPECIMENOrdering Facility: [facility] Address:[address] [place], [place] [address]Result Comment: Estimated Glomerular Filtration Rate (eGFR) is calculated using the 2020 CKD-EPI creatinine equation. This equation utilizes serum creatinine, sex, and age as parameters. The creatinine assay has traceable calibration to isotope dilution-mass spectrometry. Refer to KDIGO guidelines for clinical interpretation. In patients with unstable renal function, e.g. those with acute kidney injury, the eGFR may not accurately reflect actual GFR.Performed By: #### [id number] ####[facility] LABIA [id number] [place] [address] Glucose [Mass/Vol]186 mg/xGAsvw76-69WiothmtnvAd[facility] on above: Order Comment: Specimen Type: BLOOD SPECIMENOrdering Facility: [facility] Address:94 [address] [place], [place] [id number] Comment: The [place] [employer] (ADA) provides guidance for cutoff [...] Standards of Medical Care in Diabetes 2016, [place] [employer]. Diabetes Care. 2016.39(Suppl 1).Performed By: #### 91454-3 ####[facility] LABCLIA [id number] [place], [place] [address]Wctkabksv [Moles/Vol]5.0 mmol/LNormal3.7-5.1CSycamore Medical Center on above:Order Comment: Specimen Type: BLOOD SPECIMENOrdering Facility: [facility] Address:[address] [place], [place] [address]Performed By: #### 37379-2 ####[facility] LABCLIA [id number] [place], [place] [address]Ahufhpk [Mass/Vol]6.0 g/dLLow6.3-8.0[facility] on above:Order Comment: Specimen Type: BLOOD SPECIMENOrdering Facility: [facility] Address:[address] [place], [place] [address]Performed By: #### 06174- 8 ####[facility] LABCLIA [id number] [place], [place] [address]Cfzfgw [Moles/Vol]141 mmol/SAdalja514-631ZeavqcfscAdams County Regional [facility] Center on above:Order Comment: Specimen Type: BLOOD SPECIMENOrdering Facility: [facility] Address:[address] [place], [place] [address]Performed By: #### 31685-2 ####[facility] HOSPITALZANDRA [facility] LABCLIA [id number] [place], [place] [address]Kvtn nitrogen [Mass/Vol]41 mg/dLHigh7-21[facility] on above:Order Comment: Specimen Type: BLOOD SPECIMENOrdering Facility: [facility] Address:[address] [place], [place] [address]Performed By: #### 27575-7 ####[facility] LABCLIA [id number] [place] [address] Ferritin SerPl-mCncon 76-61-6648Gwwsayfj [Mass/Vol]363.0 ng/aWZvbt87.7-205.1 [facility] on above:Order Comment: Specimen Type: BLOOD SPECIMENOrdering Facility: [facility] Address:[address] [place], [place] [address]Performed By: #### 2276-4, 97260-5 ####[facility] LABCLIA [id number] [place] [address] [place] OF AMERICAIron and Iron binding capacity panelon 53-98-7958Vgky [Mass/Vol]81 ug/xFAexvgl61-432BjjkeldvbAdams County Regional Medical Center on above:Order Comment: Specimen Type: BLOOD SPECIMENOrdering Facility: [facility] Address:[address] [place], [place] [address]Performed By: #### 2276- 4, 02842-1 ####[facility] LABCLIA [id number] [place] [address] [place] OF AMERICAIron binding capacity [Mass/Vol]342 ug/cIIgcuyk255-947OlkpnejteAdams County Regional [facility] Center on above:Order Comment: Specimen Type: BLOOD SPECIMENOrdering Facility: [facility] Address:[address] [place], [place] [address]Performed By: #### 2276- 4, 06161-7 ####[facility] LABCLIA [id number] [place] [address] [place] OF AMERICAIron/TIBC [Molar ratio] 23.7 %Jzpvmt35.0-57.0[facility] on above:Order Comment: Specimen Type: BLOOD SPECIMENOrdering Facility: [facility] Address:[address] [place], [place] [address]Performed By: #### 2276-4, 96242-6 ####[facility] LABCLIA [id number] [address] STATES OF [facility] HOSPITALRetics #on 04-07-2025 Reticulocytes (Bld) [#/Vol]0.06051 10*3/uLHigh0.018-0.100[facility] on above:Order Comment: Specimen Type: BLOOD SPECIMEN [facility] Address: [address] [place], [place] [address]Performed By: #### 49894-6, 2276-4 #### [facility] LAB CLIA [id number] [address] [place] [address] STATES OF AMERICAReticulocytes (Bld) [#/Vol] on 28-42-7063Qqwnwajgdzqut/100 RBC (Bld)3.8 %High0.4-2.0[facility] on above:Order Comment: Specimen Type: BLOOD SPECIMEN [facility] Address: [address] [place], [place] [address]Performed By: #### 76227-6, 2276-4 #### [facility] LAB CLIA [id number] [address] [place] [address] [place] OF AMERICAAmbulatory Visit Summaryon 17-36-5399Gollcijpif Visit SummaryAmbulatory Visit Summary ANH TEJEDA :1950 [...] you for choosing us for your care. [facility] CenterGastroenterology Office/Clinic Noteon 89-42-9814Vyypognvmdbgrhaq Office/Clinic NoteGastroenterology Office/Clinic Note Chief Complaint Review [...] 84.5 fL (03/27/25) Chloride: 104 mmol/L (03/27/25) [place] Absolute: 0.3 E9/L (03/27/25) CO2: 28 mmol/L (03/27/25) [place] Auto: 6.4 % (03/27/25) Creatinine: 1.2 mg/dL [...] IgG: <2 (01/28/24) Histor (more content not included)...NormalHolmes County Joel Pomerene Memorial HospitalComment on above:Result Comment: Electronically Signed By: Shanel DONG, Verónica Guadalupe\Date and Time Signed: 03/30/2510:12 EDTAFPon 18-36-4420XCV.tumor marker [Mass/Vol] ng/mLInvalid Interpretation Code0.0-9.2FMercy Health Fairfield HospitalComment on above:Result Comment: [employer] Electrochemiluminescence Immunoassay (ECLIA) Values obtained with different assay methods or kits cannot be used interchangeably. Results cannot be interpreted as absolute evidence of the presence or absence of malignant disease. This test is not interpretable in females. Performed at: Lab[address] [id number] PhD Isma BanksPerformed By: #### [id number] #### [facility] Laboratory [address], [place] [address]QZO w/ Auto Diffon 10-98-2423Imjhydasf/100 WBC (Bld)0.4 %Normal 0.0-2.0[facility]ome[facility] Memorial HospitalComment on above:Performed By: #### [id number] #### [facility] Laboratory [address], [place] [address]Bnghuniqj/Leukocytes Auto (Bld) [Pure # fraction]0.0 E9/LNormal 0.0-0.2FMercy Health Fairfield HospitalComment on above:Performed By: #### [id number] #### [facility] [address], [place] [address]Iuwwhsmgslc (Bld) [#/Vol]0.1 E9/LNormal0.0-0.5FMercy Health Fairfield HospitalComment on above:Performed By: #### [id number] #### [facility] [address], [place] [address]Htqvlctahef/100 WBC (Bld)1.9 %Normal0.0-8.0[facility] Memorial HospitalComment on above:Performed By: #### [id number] #### [facility] [address] [place] [address]Kwlpqobcteu distribution width (RBC) [Ratio]16.3 %High10.9-14.2 [facility] Memorial HospitalComment on above:Performed By: #### [id number] #### [facility] [address] [place] [address]Hedoaqalue (Bld) [Volume fraction]32.7 %Low34.0-46.0[facility] Memorial HospitalComment on above:Performed By: #### [id number] #### [facility] [address] [place] [address]Krpeijcswp (Bld) [Mass/Vol]11.4 g/dLLow12.0-16.0[facility] Memorial HospitalComment on above:Performed By: #### [id number] #### [facility] [address] [place] [address]Naqrshnnhhi (Bld) [#/Vol]1.4 E9/LNormal1.0-4.0[facility] Memorial HospitalComment on above:Performed By: #### [id number] #### [facility] [address] [place] [address]Keskkqheslp/100 WBC (Bld)28.3 %Qujabh52.0-50.0[facility] Memorial HospitalComment on above:Performed By: #### [id number] #### [facility] [address] [place] [address] 196[address]KLR (RBC) [Entitic mass]29.5 mqHhanaj62.0-34.0[facility] Memorial HospitalComment on above:Performed By: #### [id number] #### [facility] [address] [place] [address]ATES (RBC) [Mass/Vol]34.9 g/wFUlktvt34.4-36.0[facility] HospitalComment on above:Performed By: #### [id number] #### [facility] [address] [place] [address]35[address]DEI (RBC) [Entitic vol]84.5 tEFpxbkb75.0-100.0[facility] Memorial HospitalComment on above:Performed By: #### [id number] #### [facility] [address] [place] [address]Kexpjwvbx (Bld) [#/Vol]0.3 E9/LNormal0.2-1.0[facility] HospitalComment on above:Performed By: #### [id number] #### [facility] [address] [place] [address]Ywprxpbmoha (Bld) [#/Vol]3.1 E9/LNormal2.0-7.5FMercy Health Fairfield HospitalComment on above:Performed By: #### [id number] #### [facility] [address] [place] [address] 6[address]Cuqghqyjukt/100 WBC (Bld)63.0 %Qwupow15.0-75.0[facility] Memorial HospitalComment on above:Performed By: #### [id number] #### [facility] [address] [place] [address]Jiooqjea mean volume (Bld) [Entitic vol]7.2 fLNormal6.4-10.8 [facility] HospitalComment on above:Performed By: #### [id number] #### [facility] [address] [place] [address]Ueqvklrhx (Bld) [#/Vol]139.0 E9/SWth438.0-500.0[facility] HospitalComment on above:Performed By: #### [id number] #### [facility] [address] [place] [address]YFZ (Bld) [#/Vol]3.9 E12/LLow4.3-5.9[facility] Comment on above:Performed By: #### [id number] #### [facility] [address], [place] [address]DWM corrected for nucl RBC Auto (Bld) [#/Vol]4.9 E9/LNormal 4.0-11.0[facility]villeer [facility] Luke InstituteComment on above:Performed By: #### [id number] #### [facility] [address], [place] [address]FLSUBEJXLJqeijdf By: SYSTEM SYSTEM on 32-26-0948Sbzgpcc [Mass/Vol]4.0 g/dLNormal3.3 - 5.0 gm/dLRemisol ChemAlbumin/Globulin [Mass ratio] 1.7 {ratio}Normal1.1 - 2.2Remisol ChemALP [Catalytic activity/Vol]133 [iU]/dHigh 21 - 98 Int._Unit/LRemisol ChemALT No additional P-5'-P [Catalytic activity/Vol] 20 [iU]/dNormal6 - 46 Int._Unit/LRemisol ChemAnion gap [Moles/Vol]12 mmol/L Normal6 - 16 mEq/LRemisol ChemAST [Catalytic activity/Vol]17 [iU]/dNormal5 - 43 Int._Unit/LRemisol ChemBilirubin [Mass/Vol]0.6 mg/dLNormal0.0 - 1.1 mg/dLRemisol ChemCalcium [Mass/Vol]9.0 mg/dLNormal8.9 - 11.1 mg/dLRemisol ChemChloride [Moles/Vol]104 mmol/MLpkcmy781 - 111 mmol/LRemisol ChemCO2 [Moles/Vol]28 mmol/L Bstnsg59 - 31 mmol/LRemisol ChemCreatinine [Mass/Vol]1.2 mg/dLNormal0.5 - 1.3 mg/dLRemisol XpgejQUF60 mL/min/1.73 m2Low>=59mL/min/1.73 q7Zeinlpl ChemGlobulin (S) [Mass/Vol]2.3 g/dLNormal1.4 - 4.0 gm/dLRemisol ChemGlucose [Mass/Vol]155 mg/vPOimltc68 - 199 mg/dLRemisol ChemPotassium [Moles/Vol]4.3 mmol/LNormal3.5 - 5.3 mmol/LRemisol ChemProtein [Mass/Vol]6.3 g/dLNormal6.0 - 7.8 gm/dLRemisol ChemSodium [Moles/Vol]140 mmol/IGrctsd144 - 145 mmol/LRemisol ChemUrea nitrogen [Mass/Vol]36 mg/dLHigh5 - 21 mg/dLRemisol ChemUrea nitrogen/Creatinine [Mass ratio]30 mg/ofGbdz94 - 20Remisol ChemCMPon 26-86-5495Gvsrgel [Mass/Vol]4.0 g/dL Normal3.3-5.0[facility] HospitalComment on above:Performed By: #### [id number] #### [facility] [address] [place] [address]Rqvuaec/Globulin (S) [Mass conc ratio]1.2Cewgmk8.1-2.2FMercy Health Fairfield HospitalComment on above:Performed By: #### [id number] #### [facility] [address] [place] [address] 46[address]UVO [Catalytic activity/Vol]133 Int._Unit/JThgx69-62JzqafsHolmes County Joel Pomerene Memorial HospitalComment on above:Performed By: #### [id number] #### [facility] [address] [place] [address]XMI No additional P-5'-P [Catalytic activity/Vol]20 Int._Unit/L Normal6-46[facility] HospitalComment on above:Performed By: #### [id number] #### [facility] [address] [place] [address]Rnpju gap [Moles/Vol]12 mmol/LNormal6-16[facility] HospitalComment on above:Performed By: #### [id number] #### [facility] [address] [place] [address]PNN [Catalytic activity/Vol]17 Int._Unit/LNormal5-43[facility] HospitalComment on above:Performed By: #### [id number] #### [facility] [address] [place] [address]Pwqepvzzq [Mass/Vol]0.6 mg/dLNormal0.0-1.1FMercy Health Fairfield HospitalComment on above:Performed By: #### [id number] #### [facility] [address], [place] [address]Hptdije [Mass/Vol]9.0 mg/dLNormal8.9-11.1FMercy Health Fairfield HospitalComment on above:Performed By: #### [id number] #### [facility] [address], [place] [address]Wkboylni [Moles/Vol]104 mmol/FJdosxw697-183MgrcdiHolmes County Joel Pomerene Memorial HospitalComment on above:Performed By: #### [id number] #### [facility] [address], [place] [address]YW8 [Moles/Vol]28 mmol/UGgwyir71-03VfoacyHolmes County [facility] Hospital Comment on above:Performed By: #### [id number] #### [facility] [address], [place] [address]Skfzayeltl [Mass/Vol]1.2 mg/dLNormal0.5-1.3FMercy Health Fairfield HospitalComment on above:Performed By: #### [id number] #### [facility] [address], [place] [address]Rtoazxbs (S) [Mass/Vol]2.3 g/dLNormal1.4-4.0[facility] HospitalComment on above:Performed By: #### [id number] #### [facility] [address], [place] [address]Grugszu [Mass/Vol]155 mg/hAMwdjup87-883ZkueuqHolmes County Joel Pomerene Memorial HospitalComment on above:Performed By: #### [id number] #### [facility] [address], [place] [address]Eswrpdrdb [Moles/Vol]4.3 mmol/LNormal3.5-5.3FMercy Health Fairfield HospitalComment on above:Performed By: #### [id number] #### [facility] [address], [place] [address]Ykvpynq [Mass/Vol]6.3 g/dLNormal6.0-7.8[facility] HospitalComment on above:Performed By: #### [id number] #### [facility] [address], [place] [address]Yxdkff [Moles/Vol]140 mmol/FVbcvlc791-350TxzvhnHolmes County Joel Pomerene Memorial HospitalComment on above:Performed By: #### [id number] #### [facility] [address], [place] [address]Dwmp nitrogen [Mass/Vol]36 mg/dLHigh5-21[facility] HospitalComment on above:Performed By: #### [id number] #### [facility] [address], [place] [address]Amaw nitrogen/Creatinine [Mass ratio]30 No BurjzNlsm95-63WfneldHolmes County Joel Pomerene Memorial HospitalComment on above:Performed By: #### [id number] #### [facility] [address], [place] [address]KMOCUXMCZGXQsgoulh By: Karlie Gomez on 76-92-8579vMHL Coag (PPP) [Time]35.5 jJivtzs56.1 - 36.5 second(s)[facility] Auto CoagComment on above: Interpretive Data: Parameter [...] the same coagulation reagent and instrumentation as [facility]. Currently there are no coagulation studies available worldwide for children to 14 days, andno normal ranges. Heparin therapeutic range (represented by Anti-Factor Xa activity of 0.2 - 0.4 U/mL) corresponds to PTT of 56.6 - 109.0 sec.INR Coag (PPP) [Relative time]1.05 {INR}Invalid Interpretation CodePURCELL MUNICIPAL HOSP[facility] Auto CoagComment on above:Interpretive Data: INR results are specifically intended to assess patients stabilized on long-term Anticoagulation therapy suggested INR s Less Intensive Anticoagulation 2.0 3.0 Conventional Range 3.0 4.5PT Coag (PPP) [Time]11.8 sNormal9.4 - 12.5 second(s) [facility] Auto CoagComment on above:Interpretive Data: 15 days [...] the same coagulation reagent and instrumentation as [facility]. Currently there are no coagulation studies available worldwide for children to 14 days, andno normal ranges.HEMATOLOGYOrdered By: SYSTEM SYSTEM on 99-24-0984Zlgiwwrsp/100 WBC (Bld)0.4 %Normal0.0 - 2.0 %Remisol HemeBasophils/Leukocytes [...] E9/LNormal1.0 - 4.0 E9/LRemisol HemeLymphocytes/100 WBC (Bld)28.3 %Nnuflq95.0 - 50.0 %Remisol HemeMCH (RBC) [Entitic mass]29.5 pg Ybkdkj19.0 - 34.0 pgRemisol HemeMCHC (RBC) [Mass/Vol]34.9 g/wPRaqetd73.4 - 36.0 gm/dLRemisol HemeMCV (RBC) [Entitic vol]84.5 dRWhikpz58.0 - 100.0 fLRemisol Heme Monocytes (Bld) [#/Vol]0.3 E9/LNormal0.2 - 1.0 E9/LRemisol HemeMonocytes/100 WBC (Bld)6.4 %Normal4.0 - 14.0 %Remisol HemeNeutrophils (Bld) [#/Vol]3.1 E9/LNormal 2.0 - 7.5 E9/LRemisol HemeNeutrophils/100 WBC (Bld)63.0 %Qkhfpi45.0 - 75.0 % Remisol HemePlatelet mean volume (Bld) [Entitic vol]7.2 fLNormal6.4 - 10.8 fL Remisol HemePlatelets (Bld) [#/Vol]139.0 E9/DLct285.0 - 500.0 E9/LRemisol Heme RBC (Bld) [#/Vol]3.9 E12/LLow4.3 - 5.9 E12/LRemisol HemeWBC corrected for nucl RBC Auto (Bld) [#/Vol]4.9 E9/LNormal4.0 - 11.0 E9/LRemisol HemePT & PTTon 73-87-5496bUUM Coag (PPP) [Time]35.5 second(s)Taogrs82.1-36.5Fisher [facility] InstituteComment on above:Result Comment: Parameter 15 days [...] the same coagulation reagent and instrumentation as [facility]. Currently there are no coagulation studies available worldwide for children to 14 days, andno normal ranges. Heparin therapeutic range (represented by Anti-Factor Xa activity of 0.2 - 0.4 U/mL) corresponds to PTT of 56.6 - 109.0 sec.Performed By: #### [id number] #### [facility] [address], [place] [address]RZA Coag (PPP) [Relative time]1.05 {INR}Invalid Interpretation CodeHolmes County Joel Pomerene Memorial HospitalComment on above:Result Comment: INR results are specifically intended to assess patients stabilized on long-term Anticoagulation therapy suggested INR???s ???Less Intensive Anticoagulation??? 2.0 ??? 3.0 Conventional Range 3.0 ??? 4.5Performed By: #### [id number] #### [facility] [address], [place] [address]VL Coag (PPP) [Time]11.8 second(s)Normal9.4-12.5Fisher [facility] Luke InstituteComment on above:Result Comment: 15 days - [...] the same coagulation reagent and instrumentation as [facility]. Currently there are no coagulation studies available worldwide for children to 14 days, andno normal ranges.Performed By: #### [id number] #### [facility] [address], [place] [address]bAQQqg 37-11-6872rSCN06 mL/min/1.73 m2Low>=59[facility] HospitalComment on above:Performed By: #### [id number] #### [facility] [address], [place] [address]Cuhdjfuxprx 83-25-6727HqexabidaBdhgtburs From: Ellyn Copeland To: Lauren Day; Ellyn Copeland; Sent: 09/30/2024 13:06:26 EST Show up: 01/28/2025 14:06:00 EDT Subject: Ambulatory Reminder Due Date/Time: 02/28/2025 14:06:00 EDT Reminder Please call patient to schedule Fibroscan for 03-10 [facility]-4220GC lumbar [facility] wo [facility] Main [place] [id number] MRI Report Signed Patient: Anh Tejeda MR#: [id number] : 1950 Acct:[id number] Age/Sex: 74 / F ADM Date: 02/08/25 Loc: [facility] Room: Type: [facility] Attending Dr: Tessy Bruner MD Copies to: [...] severe facet arthropathy. Moderate central canal stenosis. Bzui-vn-ytvtcgct bilateral neural foraminal narrowing. Mild crowding of [...] Narendra Guaman M.D.02/08/2025 2:29 PM Dictation Location: [place] [address] Transcribed By: [facility] 02/08/25 1429 Dictated By: Narendra Guaman MD 02/08/25 1337 Signed By: 02/08/[address] [address] [facility] Physician GroupScgnetic resonance imaging reportOrdered By: Narendra Guaman on 50-36-3636Zafaz reportUNIVERSITY H[facility] [place] [address] [place] [address] MRI Report Signed Patient: Anh Tejeda MR#: [id number] : 1950 Acct:[id number] Age/Sex: 74 / F ADM Date: 5 Loc: [facility] Room: Type: [facility] Attending Dr: Tessy Bruner MD Copies to: [...] disease L4-5 and L5-S1. Moderate disc disease Y35-S3jre mild disc disease at L3-L4. The conus [...] severe facet arthropathy. Moderate central canal stenosis. Qrvy-yb-xeqcmkeu bilateral neural foraminal narrowing. Mild crowding of [...] Narendra Guaman M.D.02/08/2025 2:29 PM Dictation Location: [place] [address] Transcribed By: [place] 02/08/25 0771 Dictated By: Narendra Guaman MD 02/08/25 1724 Signed By: 02/08/[address] [facility] Work Phone: cb W Auto Differential panel (Bld)on 01-06-2025 Basophils (Bld) [#/Vol]10*3/uLNormal<0.11CS[facility] on above:Order Comment: Specimen Type: BLOOD SPECIMENOrdering Facility: [facility] Address:[address] [place], [place] [address]Performed By: #### 07051-3, 42540-8 ####[facility] LABCLIA [id number] [place], [place] [address]Vekvsxfhh/100 WBC (Bld)0.2 %NormalAdams County Regional Medical Center on above:Order Comment: Specimen Type: BLOOD SPECIMENOrdering Facility: [facility] Address:[address] [place], [place] [address]Performed By: #### 31459-8, 80630-7 ####[facility] LABCLIA [id number] [place] [address] Differential cell count method Nom (Bld)AutoNormalClevelECU Health Medical Center Comment on above:Order Comment: Specimen Type: BLOOD SPECIMENOrdering Facility: [facility] Address:[address] [place] [address] Performed By: #### 56723-7, 19533-1 ####[facility] LABCLIA [id number] [place], [place] [address]Ysxfmlonaxy (Bld) [#/Vol]0.11 10*3/uLNormal<0.46[facility] on above:Order Comment: Specimen Type: BLOOD SPECIMENOrdering Facility: [facility] Address:[address] [place], [place] [address]Performed By: #### 36023- 0, 01322-1 ####[facility] LABCLIA [id number] [place], [place] [address]Wpyfkvjvdcg/100 WBC (Bld)2.0 %[facility] on above:Order Comment: Specimen Type: BLOOD SPECIMENOrdering Facility: [facility] Address:[address] [place], [place] [address]Performed By: #### 09861-7, 00273-4 ####[facility] LABIA [id number] [place] [address] Erythrocyte distribution width (RBC) [Ratio]15.8 %High11.5-15.0[facility] on above:Order Comment: Specimen Type: BLOOD SPECIMENOrdering Facility: [facility] Address:[address] [place], [place] [address]Performed By: #### 35578-2, 43821-7 ####[facility] LABIA [id number] [place], [place] [address]Jbejpylggl (Bld) [Volume fraction]32.1 %Low36.0-46.0[facility] on above: Order Comment: Specimen Type: BLOOD SPECIMENOrdering Facility: [facility] Address:[address] [place], [place] [address]Performed By: #### 34510- 0, 28650-4 ####[facility] LABIA [id number] [place], [place] [address]Lmndpbbaij (Bld) [Mass/Vol]11.0 g/dLLow11.5-15.5 [facility] on above:Order Comment: Specimen Type: BLOOD SPECIMENOrdering Facility: [facility] Address:[address] [place], [place] [address]Performed By: #### 78110-4, 31834-5 ####[facility] LABIA [id number] [place], [place] [address]Atrctjtk granulocytes (Bld) [#/Vol]10*3/uLNormal<0.10[facility] on above:Order Comment: Specimen Type: BLOOD SPECIMENOrdering Facility: [facility] Address:[address] [place] [address] Performed By: #### 95548-3, 23391-6 ####[facility] LABCLIA [id number] [place], [place] [address]Dwxujanb granulocytes/100 WBC (Bld)0.4 %NormalAdams County Regional Medical Center on above: Order Comment: Specimen Type: BLOOD SPECIMENOrdering Facility: [facility] Address:[address] [place], [place] [address]Performed By: #### 86453- 0, 55314-6 ####[facility] LABCLIA [id number] [place], [place] [address]Vxryxwonkqm (Bld) [#/Vol]1.45 10*3/uLNormal 1.00-4.00[facility] on above:Order Comment: Specimen Type: BLOOD SPECIMENOrdering Facility: [facility] Address:[address] [place], [place] [address]Performed By: #### 69688-1, 21263-7 ####[facility] LABCLIA [id number] [place], [place] [address]Qhykjipnkcm/100 WBC (Bld)27.0 %NormalAdams County Regional Medical Center on above:Order Comment: Specimen Type: BLOOD SPECIMENOrdering Facility: [facility] Address:[address] [place], [place] [address]Performed By: #### 04177-2, 34865-5 ####[facility] LABCLIA [id number] [place], [place] [address]CWF (RBC) [Entitic mass]30.0 vvQihcrb61.0-34.0[facility] on above:Order Comment: Specimen Type: BLOOD SPECIMENOrdering Facility: [facility] Address:[address] [place], [place] [address]Performed By: #### 25463- 0, 42373-5 ####[facility] LABCLIA [id number] [place], [place] [address]MWXK (RBC) [Mass/Vol]34.3 g/rNOoyxnv00.5-36.0 [facility] on above:Order Comment: Specimen Type: BLOOD SPECIMENOrdering Facility: [facility] Address:[address] [place], [place] [address]Performed By: #### 58682-8, 05821-1 ####[facility] LABCLIA [id number] [place], [place] [address]NUV (RBC) [Entitic vol]87.5 zIRwgtsn14.0-100.0[facility] on above:Order Comment: Specimen Type: BLOOD SPECIMENOrdering Facility: [facility] Address:[address] [place], [place] [address]Performed By: #### 44241-4, 91852-1 ####[facility] LABCLIA [id number] [place], [place] [address]Aagztagdd (Bld) [#/Vol]0.32 10*3/uLNormal <0.87[facility] on above:Order Comment: Specimen Type: BLOOD SPECIMENOrdering Facility: [facility] Address:[address] [place], [place] [address]Performed By: #### 89404-3, 92796-5 ####[facility] LABCLIA [id number] [place], [place] [address]Xctqyokmq/100 WBC (Bld)5.9 %NormalAdams County Regional Medical Center on above:Order Comment: Specimen Type: BLOOD SPECIMENOrdering Facility: [facility] Address:[address] [place], [place] [address]Performed By: #### 55184-3, 00127-2 ####[facility] LABCLIA [id number] [place], [place] [address]Uqqninziblf (Bld) [#/Vol]3.47 10*3/uLNormal 1.45-7.50[facility] on above:Order Comment: Specimen Type: BLOOD SPECIMENOrdering Facility: [facility] Address:[address] [place], [place] [address]Performed By: #### 57298-0, 98162-4 ####[facility] H[facility]PITALZANDRA [facility] LABCLIA [id number] [place], [place] [address]Gipyzbtllgg/100 WBC (Bld)64.5 %NormalAdams County Regional Medical Center on above:Order Comment: Specimen Type: BLOOD SPECIMENOrdering Facility: [facility] Address:[address] [place], [place] [address]Performed By: #### 93338-3, 22192-1 ####[facility] H[facility]PITALZANDRA [facility] LABIA [id number] [place], [place] [address]Veskfmhuz RBC (Bld) [#/Vol]10*3/uLNormal<0.01[facility] on above:Order Comment: Specimen Type: BLOOD SPECIMENOrdering Facility: [facility] Address:[address] [place], [place] [address]Performed By: #### 48142- 0, 56029-2 ####[facility]PITALZANDRA [facility] LABIA [id number] [place], [place] [address]Irshwupef RBC/100 WBC (Bld) [Ratio]0.0 /100 WBC NormalAdams County Regional Medical Center on above:Order Comment: Specimen Type: BLOOD SPECIMENOrdering Facility: [facility] Address:[address] [place], [place] [address]Performed By: #### 48832-5, 14024-5 ####[facility]ITALZANDRA [facility] LABCLIA [id number] [place], [place] [address]Ysskjprf mean volume (Bld) [Entitic vol]8.8 fLLow9.0-12.7CSy[facility] on above:Order Comment: Specimen Type: BLOOD SPECIMENOrdering Facility: [facility] Address:[address] [place], [place] [address]Performed By: #### 85617-0, 96109-1 ####[facility] LABCLIA [id number] [place], [place] [address]Fdulppbpu (Bld) [#/Vol]117 10*3/cCMks752-086LsafkxgdyAdams County Regional Medical Center on above:Order Comment: Specimen Type: BLOOD SPECIMENOrdering Facility: [facility] Address:[address] [place], [place] [address]Performed By: #### 88046- 0, 91036-6 ####[facility] LABCLIA [id number] [place], [place] [address]EKJ (Bld) [#/Vol]3.67 10*6/uLLow3.90-5.20[facility] on above:Order Comment: Specimen Type: BLOOD SPECIMENOrdering Facility: [facility] Address:[address] [place], [place] [address]Performed By: #### 43280-5, 78395-2 ####[facility]ITALIA [id number] [place], [place] [address]QDM (Bld) [#/Vol]5.38 10*3/uLNormal3.70-11.00[facility] on above:Order Comment: Specimen Type: BLOOD SPECIMENOrdering Facility: [facility] Address:[address] [place], [place] [address]Performed By: #### 20619-4, 89641-0 ####[facility] LABIA [id number] [place], [place] [address]RKLPFYsw 27-37-2121JSIEIQZzyxa (SP) Office (HEMASA) ANH TEJEDA ([id number]) 1950 F Date Time Provider Department 01/06/25 2:30 PM DAKSHA BRIDGES During your visit today, we recorded the following information about you: Temperature Pulse Respiration Blood pressure 97.8 degrees 80/minute 18/minute 132/72 Weight 96.6 kg Daksha Bridges PA-C 01/06/2025 2:38 PM Signed Hematology Progress Note PATIENT NAME: Anh Tejeda CLINIC NO.: [id number] ATTENDING PHYSICIAN: Henry Walker MD DATE OF [...] murmurs, rubs, or ga (more content not included)...NormalUniversity Hospitals Conneaut Medical CenterComprehensive metabolic 2000 panelon 95-80-5045Skxeayo [Mass/Vol]4.0 g/dLNormal3.9-4.9CLake [facility] Comment on above:Order Comment: Specimen Type: BLOOD SPECIMENOrdering Facility: [facility] Address:[address] [place] [address] Performed By: #### 42504-5 ####[facility] LABCLIA [id number] [place] [address] [place] ALP [Catalytic activity/Vol]164 U/FEbet36-979PsjuwnszjAdams County Regional Medical Center on above:Order Comment: Specimen Type: BLOOD SPECIMENOrdering Facility: [facility] Address:[address] [place] [address] Performed By: #### 99932-2 ####[facility] LABCLIA [id number] [place] [address] [place] ALT [Catalytic activity/Vol]18 U/LNormal7-38[facility]ment on above:Order Comment: Specimen Type: BLOOD SPECIMENOrdering Facility: [facility] Address:[address] [place], [place] [address]Performed By: #### 35860-6 ####[facility] LABCLIA [id number] [place] [address] [place] AMERICAAnion gap [Moles/Vol] 11 mmol/LNormal8-15[facility] on above:Order Comment: Specimen Type: BLOOD SPECIMENOrdering Facility: [facility] Address:[address] [place], [place] [address]Performed By: #### 50762-2 ####[facility] LABCLIA [id number] [place] [address] [place] AMERICAAST [Catalytic activity/Vol]21 U/WYhjmhl52-52AlidiczpnAd[facility] on above:Order Comment: Specimen Type: BLOOD SPECIMENOrdering Facility: [facility] Address:[address] [place], [place] [address]Performed By: #### 38352-9 ####[facility] LABCLIA [id number] [place] [address] [place] AMERICABilirubin [Mass/Vol]0.4 mg/dLNormal0.2-1.3CSy[facility] Medical Center on above:Order Comment: Specimen Type: BLOOD SPECIMENOrdering Facility: [facility] Address:[address] [place], [place] [address]Performed By: #### 57381-1 ####[facility] LABCLIA [id number] [place] [address] [place] AMERICACalcium [Mass/Vol]9.4 mg/dLNormal8.5-10.2CLake [facility] Comment on above:Order Comment: Specimen Type: BLOOD SPECIMENOrdering Facility: [facility] Address:[address] [place] [address] Performed By: #### 40076-6 ####[facility] LABCLIA [id number] [place] [address] [place] Chloride [Moles/Vol]102 mmol/TIuxdzl64-913DaswezvjvAdams County [facility] Center on above:Order Comment: Specimen Type: BLOOD SPECIMENOrdering Facility: [facility] Address:[address] [place], [place] [address]Performed By: #### 25222-6 ####[facility] LABCLIA [id number] [place] [id number] [place] AMERICACO2 [Moles/Vol]29 mmol/VDdkjha71-67RpukhxkfaAd[facility] Center on above:Order Comment: Specimen Type: BLOOD SPECIMENOrdering Facility: [facility] Address:[address] [place], [place] [address]Performed By: #### 92116-9 ####[facility] LABIA [id number] [place] [address] [place] AMERICACreatinine [Mass/Vol]1.27 mg/dL High0.58-0.96[facility] on above:Order Comment: Specimen Type: BLOOD SPECIMENOrdering Facility: [facility] Address:[address] [place], [place] [address]Performed By: #### 40917-8 ####[facility] LABIA [id number] [place] [address] [place] AMERICACreatinine and Glomerular filtration rate.predicted panel (S/P/Bld)44 mL/min/1.73m???Low>=60[facility] on above:Order Comment: Specimen Type: BLOOD SPECIMENOrdering Facility: [facility] Address:[address] [place], [place] [address]Result Comment: Estimated Glomerular Filtration Rate (eGFR) is [...] not accurately reflect actual GFR.Performed By: #### 25572-5 ####[facility] LABIA [id number] [place] [address] [place] AMERICAGlucose [Mass/Vol]216 mg/dLHigh 74-99[facility] on above:Order Comment: Specimen Type: BLOOD SPECIMENOrdering Facility: [facility] Address:[address] [place], [place] [address]Result Comment: The [place] [employer] Association (ADA) provides guidance for cutoff [...] Standards of Medical Care in Diabetes 2016, [place] [employer]. Diabetes Care. 2016.39(Suppl 1).Performed By: #### 42159-6 ####[facility] LABIA [id number] [place] [address] [place] AMERICAPotassium [Moles/Vol]4.0 mmol/L Normal3.7-5.1CSycamore Medical Center on above:Order Comment: Specimen Type: BLOOD SPECIMENOrdering Facility: [facility] Address:[address] [place], [place] [address]Performed By: #### 76070-5 ####[facility] [id number] [place] [address] [place] AMERICAProtein [Mass/Vol]6.4 g/dLNormal6.3-8.0[facility] on above:Order Comment: Specimen Type: BLOOD SPECIMENOrdering Facility: [facility] Address:[address] [place], [place] [address]Performed By: #### 32249-4 ####[facility] LABIA [id number] [place] [address] [place] Sodium [Moles/Vol]142 mmol/JRjacfv984-767LmjbdzyitAdams County [facility] Center on above:Order Comment: Specimen Type: BLOOD SPECIMENOrdering Facility: [facility] Address:[address] [place], [place] [address]Performed By: #### 73930-4 ####[facility] LABIA [id number] [place] [id number] [place] AMERICAUrea nitrogen [Mass/Vol]31 mg/dLHigh7-21[facility] on above:Order Comment: Specimen Type: BLOOD SPECIMENOrdering Facility: [facility] Address:[address] [place], [place] [address]Performed By: #### 66993- 8 ####[facility] LABCLIA [id number] [place] [address] [place] AMERICAFerritin SerPl-[facility]lenbergon 01-06-2025 Ferritin [Mass/Vol]449.0 ng/uAJpgg38.7-205.1CSycamore Medical Center on above:Order Comment: Specimen Type: BLOOD SPECIMEN [facility] Address: [address] [place], [place] [address]Performed By: #### 05923-9, 2276-4 #### [facility] LAB CLIA [id number] [address] [place] [address] [place] AMERICAIron and Iron binding capacity panelon 51-45-9383Linu [Mass/Vol]58 ug/hUHikinn90-991PqxaxooooAdams [facility] on above:Order Comment: Specimen Type: BLOOD SPECIMEN [facility] Address: [address] [place], [place] [address]Performed By: #### 29062-7, 2276-4 #### [facility] LAB CLIA [id number] [address] [place] [address] [place] AMERICAIron binding capacity [Mass/Vol]320 ug/mXIizcsh946-151LwirpoewyAdams County Regional Medical Center on above:Order Comment: Specimen Type: BLOOD SPECIMEN [facility] Address: [address] [place], [place] [address]Performed By: #### 87006-2, 6-4 #### [facility] LAB CLIA [id number] [address] [place] [address] [place] AMERICAIron/TIBC [Molar ratio]18.1 %Ynzusb63.0-57.0[facility] on above:Order Comment: Specimen Type: BLOOD SPECIMEN [facility] Address: [address] [place], [place] [address]Performed By: #### 14008-2, 2276-4 #### [facility] LAB CLIA [id number] [address] [place] [address] DESK [id number] LIN STREETRetics #on 01-06-2025 Reticulocytes (Bld) [#/Vol]0.16720 10*3/uLHigh0.018-0.100[facility] on above:Order Comment: Specimen Type: BLOOD SPECIMENOrdering Facility: [facility] Address:[address] [place], [place] [address]Performed By: #### 40973-1, 81900-1 ####[facility] LABCLIA [id number] [place], [place] [address]Txbicvffqbqfp (Bld) [#/Vol]on 32-36-4439Riptvtgaiipjs/100 RBC (Bld)4.0 %High0.4-2.0[facility] on above:Order Comment: Specimen Type: BLOOD SPECIMENOrdering Facility: [facility] Address:[address] [place], [place] [address]Performed By: #### 52325-5, 56879-3 ####[facility] LABCLIA [id number] [place], [place] [address]CJZRde 64-45-8745FMEP Telephone (HEMASA) ANH TEJEDA ([id number]) 1950 F Date Time Provider Department 01/02/25 [...] BLOOD COUNT AND DIFFERENTIAL [SQCBCDIF] Order #: [id number] FUTURE FERRITIN [SQFERR] Order #: [id number] FUTURE IRON AND TIBC [SQIRON] Order #: [id number] FUTURE RETICULOCYTE COUNT [SQRETIC] Order #: [id number] FUTURE COMPREHENSIVE METABOLIC PANEL [SQCMP] Order #: [id number] FUTURE Prescriptions as of 01/02/2025 - diphenhydrAMINE [...] 01/29/2024 Encounter Status:Closed by VERNON HENRIQUEZ on 01/02/[address] with Estimated Average Gluon 25-89-2790Mmjcbsg [Mass/Vol]212 mg/dL NormalThe [facility] Physician GroupComment on above:Result Comment: PERFORMED BY: [place] [address] PATHOLOGIST BLENDER CONVEYOR OPERATOR VEL GARCIA M.D.Performed By: #### MG, CMP, CBC, LIPID #### [facility] [address] [place] [address] KWPLrQ2t (Bld) [Mass fraction]9.0 %High4.3-5.6The [facility] Hospital Physician GroupComment on above:Result Comment: Increased risk for diabetes: 5.7 - 6.4 diabetes: >6.4 glycemic control for adults with diabetes: <7.0Performed By: #### MG, CMP, CBC, LIPID #### [facility] [address] [place] [address] USAAlanine aminotransferase [Enzymatic activity/volume] in Serum or PlasmaOrdered By: Marilyn Stewart on 07-53-7306RWD [Catalytic activity/Vol] Alanine aminotransferase [Enzymatic activity/volume] in Serum or Plasma [facility] HospitalAlbumin [Mass/volume] in Serum or Plasma by Bromocresol green (BCG) dye binding methoOrdered By: Marilyn Stewart on 12-28-2024 Albumin BCG dye [Mass/Vol]Albumin [Mass/volume] in Serum or Plasma by Bromocresol green (BCG) dye binding metho3.5-5.7FMercy Health St. Rita's Medical CenterAlkaline phosphatase [Enzymatic activity/volume] in Serum or PlasmaOrdered By: Marilyn Stewart on 99-81-4465YYH [Catalytic activity/Vol]Alkaline phosphatase [Enzymatic activity/volume] in Serum or XkwayoBeqr00-068GbjgtotlmMercy Health St. Charles HospitalAppearance of UrineOrdered By: Marilyn Stewart on 08-69-8664Vmwssmiuzv (U)Urine appearanceAbnormalClearMercy Health St. Charles HospitalAspartate aminotransferase [Enzymatic activity/volume] in Serum or PlasmaOrdered By: Marilyn Stewart on 82-69-4338EPV [Catalytic activity/Vol]Aspartate aminotransferase [Enzymatic activity/volume] in Serum or Ircrxh21-70NtqqfxewfMercy Health St. Charles HospitalBacteria [Presence] in Urine by AutomatedOrdered By: Marilyn Stewart on 53-90-9612Dmvovnsh Auto Ql (U)Bacteria [Presence] in Urine by AutomatedNone [facility] Health SystemBilirubin Test strip Ql (U)Ordered By: Marilyn Stewart on 41-40-4123Cnrtrilip Ql (U)Bilirubin.total [Presence] in Urine by Test stripNegativeMercy Health St. Charles HospitalBilirubin.total [Mass/volume] in Serum or PlasmaOrdered By: Marilyn Stewart 72-99-2657Fkuwxiarh [Mass/Vol] Bilirubin.total [Mass/volume] in Serum or Plasma0.3-1.0[facility] St. Charles HospitalBlood estimated average glucose determination by estimation from glycated hemoglobinOrdered By: Vinay Matta on 65-03-6350Nuikrsq glucose Estimated from glycated hemoglobin (Bld) [Mass/Vol]Glucose mean value [Mass/volume] in Blood Estimated from glycated hemoglobinMercy Health St. Charles HospitalCalcium [Mass/volume] in Serum or PlasmaOrdered By: Marilyn Stewart 00-44-1355Cejhnmg [Mass/Vol]Calcium [Mass/volume] in Serum or PlasmaLow8.6-10.[address] [facility] HospitalCarbon dioxide, total [Moles/volume] in Serum or PlasmaOrdered By: Marilyn Stewart on 76-10-0392XL3 [Moles/Vol]Carbon dioxide, total [Moles/volume] in Serum or Dwvsrk24.0-31.0[facility] Charles HospitalChloride [Moles/volume] in Serum or PlasmaOrdered By: Marilyn Stewart on 21-16-9061Mjxakzeg [Moles/Vol]Chloride [Moles/volume] in Serum or Zoxoec72-[address] [facility] HospitalCholesterol [Mass/volume] in Serum or Plasma Ordered By: Marilyn Stewart on 87-50-7481Xvhcmcuiawj [Mass/Vol]Cholesterol [Mass/volume] in Serum or KpjregZfi676-167QljlkvmpiMercy Health St. Charles Hospital Comment on above:Chol less than 200 mg/dl low riskChol 201-239 mg/dl borderline riskChol 240 mg/dl and greater high riskCholesterol in HDL [Mass/volume] in Serum or PlasmaOrdered By: Marilyn Stewart on 29-91-0716Ptrmpvjhrfs in HDL [Mass/Vol]Serum or plasma high density lipoprotein (HDL) cholesterol measurement 23-92Mer[facility] Health St. Charles HospitalComment on above:HDL CHOL ATP-III CLASSIFICATION Cardiovascular RiskHDL > or equal to 60 mg/dL LOWHDL < 40 mg/dL HIGHCholesterol in LDL Calc [Mass/Vol]Ordered By: Marilyn Stewart on 12-28-2024 Cholesterol in LDL [Mass/Vol]Cholesterol in LDL [Mass/volume] in Serum or Plasma by calculation0-100[facility] St. Charles HospitalComment on above:LDL ATP III CLASSIFICATIONLDL less than 100 mg/dL OptimalLDL 100-129 mg/dL Near or above axzfbuoVFH194-107 mg/dL Borderline highLDL 160-189 mg/dL HighLDL greater than 189 mg/dL Very highCholesterol in VLDL Calc [Mass/Vol]Ordered By: Marilyn Stewart on 90-12-4098Bfdzuujdkyb in VLDL [Mass/Vol]Cholesterol in VLDL [Mass/volume] in Serum or Plasma by calculationMercy Health St. Charles HospitalColor Auto (U) Ordered By: Marilyn Stewart on 04-24-4136Imvai (U)Color of Urine by AutoYellow [facility] Charles HospitalComprehensive Metabolic Panelon 12-28-2024 Albumin [Mass/Vol]3.8 g/dLNormal3.5-5.7The [facility] Physician GroupComment on above:Performed By: #### MG, CMP, CBC, LIPID #### [facility] [address] [place] [id number] USAAlbumin/Globulin [Mass ratio]1.8 {ratio}NormalThe [facility] Hospital Physician GroupComment on above:Performed By: #### MG, CMP, CBC, LIPID #### [facility] [address] [place] [id number] USAALP [Catalytic activity/Vol]130 U/IXtjc36-764Lor [facility] Physician GroupComment on above:Performed By: #### MG, CMP, CBC, LIPID #### [facility] [address] [place] [address] USAALT [Catalytic activity/Vol]19 U/LNormal7-52The [facility] Physician GroupComment on above:Performed By: #### MG, CMP, CBC, LIPID #### [facility] [address] [place] [address] USAAnion gap [Moles/Vol]11.6 mmol/LNormal6.0-15.0The [facility] Physician GroupComment on above:Performed By: #### MG, CMP, CBC, LIPID #### [facility] [address] [place] [id number] USAAST [Catalytic activity/Vol]24 U/MIzgzit03-82Spw [facility] Physician GroupComment on above:Performed By: #### MG, CMP, CBC, LIPID #### [facility] [address] [place] [address] USABilirubin [Mass/Vol]0.7 mg/dLNormal0.3-1.0The [facility] Physician GroupComment on above:Performed By: #### MG, CMP, CBC, LIPID #### [facility] [address] [place] [address] USACalcium [Mass/Vol]8.5 mg/dLLow8.6-10.3The [facility] Physician GroupComment on above:Performed By: #### MG, CMP, CBC, LIPID #### [facility] [address] [place] [address] USAChloride [Moles/Vol]102 mmol/RGfzwds36-431Chg [facility] Physician GroupComment on above:Performed By: #### MG, CMP, CBC, LIPID #### [facility] [address] [place] [address] USACO2 [Moles/Vol]29.4 mmol/VNryuur87.0-31.0The [facility] Physician GroupComment on above:Performed By: #### MG, CMP, CBC, LIPID #### [facility] [address] [place] [address] USACreatinine [Mass/Vol]1.32 mg/dLHigh0.60-1.20The [facility] Physician GroupComment on above:Performed By: #### MG, CMP, CBC, LIPID #### [facility] [address] [place] [address] USAEstimated GFR42.104 mL/MinNoCape Fear Valley Bladen County Hospital Physician GroupComment on above:Performed By: #### MG, CMP, CBC, LIPID #### [facility] [address] [place] [address] USAGlobulin (S) [Mass/Vol]2.1 g/dLNoCape Fear [facility] Hospital Physician GroupComment on above:Performed By: #### MG, CMP, CBC, LIPID #### [facility] [address] [place] [address] USAGlucose [Mass/Vol]182 mg/[id number] Physician GroupComment on above:Result Comment: Random Glucose Reference Range is dependent on time and content of last meal. Glucose of more than 200 mg/dL in a nonstressed, ambulatory subject supports the diagnosis of Diabetes Mellitus. ADA recommended reference rangePerformed By: #### MG, CMP, CBC, LIPID #### [facility] [address] [place], [place] [address] USAPotassium [Moles/Vol]4.0 mmol/LNormal3.5-5.1The [facility] Physician GroupComment on above:Performed By: #### MG, CMP, CBC, LIPID #### [facility] [address] [place] [address] USAProtein [Mass/Vol]5.9 g/dLLow6.4-8.9The [facility] Physician GroupComment on above:Performed By: #### MG, CMP, CBC, LIPID #### [facility] [address] [place] [address] USASodium [Moles/Vol]139 mmol/ZTdvxjb492-426Isl [facility] Physician GroupComment on above:Performed By: #### MG, CMP, CBC, LIPID #### [facility] [address] [place] [address] USAUrea nitrogen [Mass/Vol]29 mg/dLHigh7-25The [facility] Physician GroupComment on above:Performed By: #### MG, CMP, CBC, LIPID #### [facility] [address] [place] [id number] USACreatinine [Mass/volume] in Serum or PlasmaOrdered By: Marilyn Stewart on 51-35-4342Tpjufopjhf [Mass/Vol]Creatinine [Mass/volume] in Serum or PlasmaHigh0.60-1.20[facility] St. Charles HospitalCreatinine [Mass/volume] in UrineOrdered By: Marilyn Stewart on 57-34-1257Jwhlhwelqu (U) [Mass/Vol]Creatinine [Mass/volume] in UrineMercy Health St. Charles HospitalComment on above:No reference range establishedDipstick and Microscopicon 31-85-0120Uqliegzbny (U) CloudyCritically abnormalClearThe [facility] Hospital Physician GroupComment on above: Order Comment: A1C IS NOT DUE UNTIL OCTOBER.Performed By: #### MG, CMP, CBC, LIPID #### [facility] [address] [place] [id number] USABacteria,UrineRareNormalNone SeenSt. Vincent'S Medical Center Southside Physician GroupComment on above:Order Comment: A1C IS NOT DUE UNTIL OCTOBER.Performed By: #### MG, CMP, CBC, LIPID #### [facility] [address] [place] [id number] USABilirubin,UrineNegativeNormalNegativeThe [facility] Hospital Physician GroupComment on above:Order Comment: A1C IS NOT DUE UNTIL OCTOBER. Performed By: #### MG, CMP, CBC, LIPID #### [place] [address] USAColor (U)Light-YellowNormalYellowThe [facility] Hospital Physician GroupComment on above:Order Comment: A1C IS NOT DUE UNTIL OCTOBER.Performed By: #### MG, CMP, CBC, LIPID #### [place] [address] USAGlucose Ql (U)50 mg/dLHighNoalThSt. Luke's [facility] Physician GroupComment on above:Order Comment: A1C IS NOT DUE UNTIL OCTOBER.Performed By: #### MG, CMP, CBC, LIPID #### [place] [address] USAHyaline Casts,UrineNoneNormal0-8The [facility] Physician GroupComment on above:Order Comment: A1C IS NOT DUE UNTIL OCTOBER.Performed By: #### MG, CMP, CBC, LIPID #### [place] [address] USAKetones Ql (U)NegativeNormalNegativeSt. Vincent'[facility]side Physician GroupComment on above:Order Comment: A1C IS NOT DUE UNTIL OCTOBER. Performed By: #### MG, CMP, CBC, LIPID #### [place] [address] USALeukocyte esterase Test strip Ql (U)NegativeNormalNegative The [facility] Physician GroupComment on above:Order Comment: A1C IS NOT DUE UNTIL OCTOBER.Performed By: #### MG, CMP, CBC, LIPID #### [place] [address] USAMucus,UrineRareNormalThe [facility] Hospital Physician GroupComment on above:Order Comment: A1C IS NOT DUE UNTIL OCTOBER.Result Comment: PERFORMED BY: [place] [address] PATHOLOGIST BLENDER CONVEYOR OPERATOR VEL GARCIA M.D.Performed By: #### MG, CMP, CBC, LIPID #### [place] [address] USANitrite,UrinePositiveHighNegativeThe [facility] Physician GroupComment on above:Order Comment: A1C IS NOT DUE UNTIL OCTOBER.Performed By: #### MG, CMP, CBC, LIPID #### [facility] [address] [place] [address] USAOccult Blood,UrineNegativeNormalNegativeThe [facility] Physician GroupComment on above:Order Comment: A1C IS NOT DUE UNTIL OCTOBER. Performed By: #### MG, CMP, CBC, LIPID #### [facility] [address] [place] [address] USApH (U)5.5 [pH]Normal5.0-9.0The [facility] Comment on above:Order Comment: A1C IS NOT DUE UNTIL OCTOBER.Performed By: #### MG, CMP, CBC, LIPID #### [facility] [address] [place] [address] USAProtein,UrineNegativeNormalNegativeThe [facility] Physician GroupComment on above:Order Comment: A1C IS NOT DUE UNTIL OCTOBER.Performed By: #### MG, CMP, CBC, LIPID #### [facility] [address] [place] [address] USARBC,Ispsy9-1Fdlbki3-1Daf [facility] Physician GroupComment on above:Order Comment: A1C IS NOT DUE UNTIL OCTOBER.Performed By: #### MG, CMP, CBC, LIPID #### [facility] [address] [place] [address] USASpecificy [place],Urine1.486Aqzerx9.001-1.030The [facility] Physician GroupComment on above:Order Comment: A1C IS NOT DUE UNTIL OCTOBER. Performed By: #### MG, CMP, CBC, LIPID #### [facility] [address] [place] [id number] USASquamous Epithelial Cell,Wohwv2-1Yxwa3-9Boz [facility] Physician GroupComment on above:Order Comment: A1C IS NOT DUE UNTIL OCTOBER. Performed By: #### MG, CMP, CBC, LIPID #### [facility] [address] [place] [address] USAUrobilinogen,UrineNormalNormalNormalThe [facility] Physician GroupComment on above:Order Comment: A1C IS NOT DUE UNTIL OCTOBER. Performed By: #### MG, CMP, CBC, LIPID #### [facility] [address] [place] [address] USAWBC,Ygfjm4-1Lihm6-7Dmf [facility] Physician GroupComment on above:Order Comment: A1C IS NOT DUE UNTIL OCTOBER.Performed By: #### MG, CMP, CBC, LIPID #### [facility] [address] [place] [address] USAEpithelial cells.squamous [#/area] in Urine sediment by Automated countOrdered By: Marilyn Smithr on 80-92-7239Oypnopwtqd cells.squamous Auto (Urine sed) [#/Area]Epithelial cells.squamous [#/area] in Urine sediment by Automated countHigh0-2FMercy Health St. Rita's Medical CenterErythrocyte distribution width Auto (RBC) [Ratio]Ordered By: Marilyn Terry on 33-89-7015Cunobxtedkk distribution width (RBC) [Ratio]Erythrocyte distribution width [Ratio] by Automated hozqnJqin05.9-15.3FMercy Health St. Rita's Medical CenterErythrocytes [#/area] in Urine sediment by Automated countOrdered By: Marilyn Terry on 29-37-3016DBE Auto (Urine sed) [#/Area]Erythrocytes [#/area] in Urine sediment by Automated count0-4FMercy Health St. Rita's Medical CenterFerritinon 12-28-2024 Ferritin [Mass/Vol]398.3 ng/fFQfqa78.0-306.8The [facility] Physician GroupComment on above:Performed By: #### MG, CMP, CBC, LIPID #### [facility] [address] [place] [address] USAFerritin [Mass/volume] in Serum or PlasmaOrdered By: Marilyn Terry on 94-19-3113Daoorayq [Mass/Vol]Ferritin [Mass/volume] in Serum or Plasma High11.0-306.8Mer[facility] St. Charles HospitalGlobulin Calc (S) [Mass/Vol] Ordered By: Marilyn Terry on 02-45-6964Jodhhuwn (S) [Mass/Vol]Serum globulin measurement by calculation (mass/volume)[facility] St. Charles HospitalGlucose [Mass/volume] in Serum or PlasmaOrdered By: Marilyn Stewart on 37-08-1918Wbcuycm [Mass/Vol]Glucose [Mass/volume] in Serum or DykquwMhmr29-431EcbgvotipMercy Health St. Charles HospitalComment on above:ADA recommended reference rangeRandom Glucose Reference Range is dependent on time and content of last meal. Glucose of more than 200 mg/dL in a nonstressed, ambulatory subject supports the diagnosisof Diabetes Mellitus.Glucose [Mass/volume] in Urine by Test stripOrdered By: Marilyn Stewart on 91-41-6474Vpaopct Test strip (U) [Mass/Vol]Glucose [Mass/volume] in Urine by Test stripHighNormalMercy Health St. Charles HospitalHematocrit Auto (Bld) [Volume fraction]Ordered By: Marilyn Stewart on 77-16-4819Syyokmrtpp (Bld) [Volume fraction]Hematocrit [Volume Fraction] of Blood by Automated countLow 34.0-46.4FMercy Health St. Rita's Medical CenterHemoglobin A1c/Hemoglobin.total in BloodOrdered By: Vinay Matta on 53-45-8963UfI0y (Bld) [Mass fraction] Hemoglobin A1c percentageHigh4.3-5.6FMercy Health St. Rita's Medical CenterComment on above:Increased risk for diabetes: 5.7 - 6.4diabetes: >6.4glycemic control for adults with diabetes: <7.0Hemoglobin Test strip Ql (U)Ordered By: Marilyn Stewart on 89-79-3032Aibmnflmxp Ql (U)Hemoglobin [Presence] in Urine by Test strip [facility] Medical CenterHemoglobin [Mass/volume] in Blood Ordered By: Marilyn Stewart on 06-33-7386Nljyotoziw (Bld) [Mass/Vol]Hemoglobin [Mass/volume] in SlrncCek91.8-15.4FMercy Health St. Rita's Medical CenterHemogram CBC Without Diffon 12-10-7953Tcgtlqqfovl distribution width (RBC) [Ratio]16.5 %High 11.9-15.3The [facility] Physician GroupComment on above:Performed By: #### MG, CMP, CBC, LIPID #### [place] [address] USAHematocrit (Bld) [Volume fraction]31.9 %Low34.0-46.4The [facility] Physician GroupComment on above:Performed By: #### MG, CMP, CBC, LIPID #### [place] [address] USAHemoglobin (Bld) [Mass/Vol]11.4 g/dLLow11.8-15.4The [facility] Physician GroupComment on above:Performed By: #### MG, CMP, CBC, LIPID #### [address] (RBC) [Entitic mass]30.3 ikZcikrs30.7-34.3The [facility] Physician GroupComment on above:Performed By: #### MG, CMP, CBC, LIPID #### [place] [address] USAMCV (RBC) [Entitic vol]85.1 aERjlnfa43-650Rkb [facility] Physician GroupComment on above:Performed By: #### MG, CMP, CBC, LIPID #### [place] [address] USAMean Corpuscular HGB Conc35.6 g/iPZbgi55.0-35.0The [facility] Physician GroupComment on above:Performed By: #### MG, CMP, CBC, LIPID #### [place] [address] USAPlatelet mean volume (Bld) [Entitic vol]6.9 fLNormal 6.3-10.7The [facility] Physician GroupComment on above:Result Comment: PERFORMED BY: [place] [address] PATHOLOGIST BLENDER CONVEYOR OPERATOR VEL GARCIA M.D.Performed By: #### MG, CMP, CBC, LIPID #### [place] [address] USAPlatelets (Bld) [#/Vol]148 10*3/rBNbe344-915Yyz [facility] Physician GroupComment on above:Performed By: #### MG, CMP, CBC, LIPID #### [place] [address] USARBC (Bld) [#/Vol]3.75 10*6/uLNormal3.60-5.00The [facility] Physician GroupComment on above:Performed By: #### MG, CMP, CBC, LIPID #### [facility] [address] [place] [address] USAWBC (Bld) [#/Vol]4.5 10*3/uLNormal3.8-11.6The [facility] Physician GroupComment on above:Performed By: #### MG, CMP, CBC, LIPID #### [facility] [address] [place] [address] USAHyaline casts [#/area] in Urine sediment by Automated countOrdered By: Marilyn Stewart on 52-62-3289Czdihkn casts Auto (Urine sed) [#/Area]Hyaline casts [#/area] in Urine sediment by Automated count0-8Mer[facility] Health St. Charles HospitalIron [Mass/volume] in Serum or PlasmaOrdered By: Marilyn Stewart on 04-45-1424Pekh [Mass/Vol]Iron [Mass/volume] in Serum or Thrfsn68-[address] Charles HospitalIron and TIBC Profileon 12-28-2024% Iron Ghtwzdkvmp24.1 %Arhyzh41-42Pdh [facility] Physician GroupComment on above: Performed By: #### MG, CMP, CBC, LIPID #### [place] [address] USAIron [Mass/Vol]90 ug/vBJhpfum42-653Bxh [facility] Physician GroupComment on above:Performed By: #### MG, CMP, CBC, LIPID #### [place] [address] USATotal Iron Binding Wthnkawh346 ug/dUPecofr358-745Pdm [facility] Physician GroupComment on above:Performed By: #### MG, CMP, CBC, LIPID #### [place] [address] USATransferrin [Mass/Vol]256 mg/bIEcrefg708-854Uxj [facility] Physician GroupComment on above:Performed By: #### MG, CMP, CBC, LIPID #### [facility] [address] [place] [address] USAKetones Test strip Ql (U)Ordered By: Marilyn Stewart on 30-18-4693Juvicrz Ql (U)Ketones [Presence] in Urine by Test stripNegative [facility] St. Charles HospitalLeukocyte esterase [Presence] in Urine by Test stripOrdered By: Marilyn Stewart on 29-15-1880Vuggebooo esterase Test strip Ql (U) Leukocyte esterase [Presence] in Urine by Test stripNegativeMercy Health St. Charles HospitalLeukocytes [#/area] in Urine sediment by Automated countOrdered By: Marilyn Stewart on 27-56-7311KRZ Auto (Urine sed) [#/Area]Leukocytes [#/area] in Urine sediment by Automated countHigh0-4FMercy Health St. Rita's Medical Center Leukocytes [#/volume] corrected for nucleated erythrocytes in Blood by Automated counOrdered By: Marilyn Stewart on 72-34-9119LHZ corrected for nucl RBC Auto (Bld) [#/Vol]Leukocytes [#/volume] corrected for nucleated erythrocytes in Blood by Automated coun3.8-11.6FMercy Health St. Rita's Medical CenterLipid Panelon 12-28-2024 Cholesterol [Mass/Vol]107 mg/oQLvl991-866Iqt [facility] Physician GroupComment on above:Result Comment: Chol less than 200 mg/dl low risk Chol 201-239 mg/dl borderline risk Chol 240 mg/dl and greater high riskPerformed By: #### MG, CMP, CBC, LIPID #### [facility] [address] [place] [address] USACholesterol in HDL [Mass/Vol]38 mg/rDMegzra67-34Exz [facility] Physician GroupComment on above:Result Comment: HDL CHOL ATP-III CLASSIFICATION Cardiovascular Risk HDL > or equal to 60 mg/dL LOW HDL < 40 mg/dL HIGHPerformed By: #### MG, CMP, CBC, LIPID #### [facility] [address] [place] [address] USACholesterol.total/Cholesterol in HDL [Mass ratio]2.8 {ratio}Normal<5.0The [facility] Physician GroupComment on above:Performed By: #### MG, CMP, CBC, LIPID #### [facility] [address] [place] [id number] USALDL Cholesterol,Wnmnxyvkpp50 mg/dLNormal0-100The [facility] Physician GroupComment on above:Result Comment: LDL ATP III CLASSIFICATION LDL less than 100 mg/dL Optimal LDL 100-129 mg/dL Near or above optimal LDL 130-159 mg/dL Borderline high LDL 160-189 mg/dL High LDL greater than 189 mg/dL Very highPerformed By: #### MG, CMP, CBC, LIPID #### [facility] [address] [place] [id number] USATriglyceride w/Zzxpsl999 mg/dLNormal0-149The [facility] Physician GroupComment on above:Result Comment: TRIG ATP III CLASSIFICATION TRIG less than 150 mg/dL Normal TRIG 150-199 mg/dL Borderline high TRIG 200-500 mg/dL High TRIG greater than 500 mg/dL Very high Standard traceable to the Center for Disease Conrtrol and Prevention (CDC) test method.Performed By: #### MG, CMP, CBC, LIPID #### [facility] [address] [place] [id number] USAVLDL IQUKJPDQKXP92 mg/dLNormalThe [facility] Physician GroupComment on above:Performed By: #### MG, CMP, CBC, LIPID #### [facility] [address] [place] [id number] [facility] [place] [place] Auto (RBC) [Entitic mass]Ordered By: Marilyn Stewart on 06-26-0977VUP (RBC) [Entitic mass]MCH [Entitic mass] by Automated count24.7-34.3 [facility] Auto (RBC) [Mass/Vol]Ordered By: Marilyn Terry on 74-15-3799PCMD (RBC) [Mass/Vol]MCHC [Mass/volume] by Automated count High32.0-35.0[facility] Auto (RBC) [Entitic vol] Ordered By: Marilyn Terry on 52-16-1990CMZ (RBC) [Entitic vol]MCV [Entitic volume] by Automated npemy05-516ChfttdrhkMercy Health St. Charles HospitalMM screening mammo BI w/CADon 56-15-7959AU screening mammo BI w/CADUNIVERSITY [facility] Main [address] [address] [place], [place] [id number] Mammography Report Signed Patient: Anh Tejeda MR#: [id number] : 1950 Acct:[id number] Age/Sex: 73 / F ADM Date: 12/28/24 Loc: [place] Room: Type: [facility] Attending Dr: Referral Self Copies to: Vinay [...] Sharad Robles M.D.12/28/2024 12:10 PM Dictation Location: [facility] Transcribed By: [facility] 12/28/24 1210 Dictated By: Sharad Robles DO 12/28/24 1204 Signed By: 12/28/24 1210NormH[facility] Physician GroupMagnesiumon 13-16-6805Rrupablqp [Mass/Vol]1.2 mg/dLLow1.9-2.7The [facility] Physician GroupComment on above: Performed By: #### MG, CMP, CBC, LIPID #### [facility] [address] [place] [address] USAMagnesium [Mass/volume] in Serum or PlasmaOrdered By: Marilyn Stewart on 84-57-1602Gvanlffwy [Mass/Vol]Magnesium [Mass/volume] in Serum or PlasmaLow1.9-2.7FMercy Health St. Rita's Medical CenterMammography reportOrdered By: Sharad Robles on 49-32-5957Jkarjugzmj imaging studyUNIVERSITY [facility]ITALS [facility]HU[facility] [address] [employer] [address] [place] [address] Mammography Report Signed Patient: Anh Tejeda MR#: [id number] : 1950 Acct:[id number] Age/Sex: 73 / F ADM Date: 5 Loc: [place] Room: Type: [facility] CL Attending Dr: Referral Self Copies [...] Sharad Robles M.D.12/28/2024 12:10 PM Dictation Location: [facility] Transcribed By: [facility] 12/28/24 1210 Dictated By: Sharad Robles DO 12/28/24 1204 Signed By: 12/28/[address] Charles HospitalMucus [Presence] in Urine by AutomatedOrdered By: Marilyn Stewart on 58-21-5139Pacaw Auto Ql (U)Mucus [Presence] in Urine by AutomatedMercy Health St. Charles HospitalNitrite Test strip Ql (U)Ordered By: Marilyn Stewart on 70-62-0040Tygkntz Ql (U)Nitrite [Presence] in Urine by Test strip HighNegativeMercy Health St. Charles HospitalNo Panel InformationOrdered By: Marilyn Stewart on 97-69-0857Mmcnpkauz GFR (CKD-EPI)42.104 mL/MinMercy Health St. Charles HospitalPharmacy Creatinine Clearance (ChemN/AFMercy Health St. Rita's Medical CenterParathyrin.intact [Mass/volume] in Serum or PlasmaOrdered By: Marilyn Stewart on 99-79-0613Bokyhsnanf.intact [Mass/Vol]Parathyrin.intact [Mass/volume] in Serum or Xryoew30-25NncoznwlxMercy Health St. Charles HospitalParathyroid Hormone Intact on 58-03-6831Lavjtdugerq Hormone Msmzui39.7 pg/oIVyiyaq56-86Pms [facility] Physician GroupComment on above:Result Comment: PERFORMED BY: [place] [address] PATHOLOGIST BLENDER CONVEYOR OPERATOR VEL GARCIA M.D.Performed By: #### MG, CMP, CBC, LIPID #### [facility] [address] [place] [address] USAPhosphate [Mass/volume] in Serum or PlasmaOrdered By: Marilyn Stewart on 78-26-3134Jkpffkkez [Mass/Vol]Phosphate [Mass/volume] in Serum or Plasma2.5-4.5FMercy Health St. Rita's Medical CenterPlatelet mean volume Auto (Bld) [Entitic vol]Ordered By: Marilyn Stewart on 95-44-8859Cjjygkan mean volume (Bld) [Entitic vol]Platelet mean volume [Entitic volume] in Blood by Automated count 6.3-10.7FMercy Health St. Rita's Medical CenterPlatelets Auto (Bld) [#/Vol]Ordered By: Marilyn Stewart on 42-81-9671Ddeqqehzm (Bld) [#/Vol]Platelets [#/volume] in Blood by Automated nttizEuu296-554JibnvbuxeMercy Health St. Charles HospitalPotassium [Moles/volume] in Serum or PlasmaOrdered By: Marilyn Stewart on 51-37-9074Auandqbju [Moles/Vol]Potassium [Moles/volume] in Serum or Plasma3.5-5.1FMercy Health St. Rita's Medical CenterProtein Creat Ratio Ur Randomon 72-91-8783Pgylymcggk, Urine (Random)74.00 mg/dLNormHCA [facility] Physician [facility] HospitalComment on above:Result Comment: No reference range establishedPerformed By: #### MG, CMP, CBC, LIPID #### [facility] [address] [place] [address] USAProtein (U) [Mass/Vol]23 mg/dLHigh0-9The [facility] Physician GroupComment on above:Performed By: #### MG, CMP, CBC, LIPID #### [facility] [address] [place] [address] USAUrine Protein/Creatinine Vtwpr914 mg/g{Cre}High0-200The [facility] Physician [facility] HospitalComment on above:Result Comment: PERFORMED BY: [place] [address] PATHOLOGIST BLENDER CONVEYOR OPERATOR VEL GARCIA M.D.Performed By: #### MG, CMP, CBC, LIPID #### [facility] [address] [place] [address] USAProtein Test strip (U) [Mass/Vol]Ordered By: Marilyn Terry on 69-96-9906Datnujc (U) [Mass/Vol]Protein [Mass/volume] in Urine by Test strip NegativeMercy Health St. Charles HospitalProtein [Mass/volume] in Serum or PlasmaOrdered By: Marilyn Terry on 91-60-3260Ypbibmy [Mass/Vol]Protein [Mass/volume] in Serum or PlasmaLow6.4-8.9[facility] Protein [Mass/volume] in UrineOrdered By: Marilyn Terry on 73-93-2312Fzshdvu (U) [Mass/Vol]Protein [Mass/volume] in UrineHigh0-9[facility] RBC Auto (Bld) [#/Vol]Ordered By: Marilyn Terry on 81-76-1536PXQ (Bld) [#/Vol] Erythrocytes [#/volume] in Blood by Automated count3.60-5.00Mer[facility] St. Charles HospitalRenal Function Panelon 73-60-1338Repfujieq [Mass/Vol]4.1 mg/dL Normal2.5-4.5The [facility] Physician GroupComment on above:Performed By: #### MG, CMP, CBC, LIPID #### [facility] [address] [place] [address] USASerum or plasma albumin/globulin mass ratioOrdered By: Marilyn Stewart on 82-76-2040Gmmwsjp/Globulin [Mass ratio]Serum or plasma albumin/globulin mass ratioPremier Health Upper Valley Medical Centererum or plasma anion gap determinationOrdered By: Marilyn Stewart on 16-83-0630Iykvk gap [Moles/Vol]Serum or plasma anion gap determination6.0-15.0Prem[facility] Medical Centererum or plasma iron binding capacity measurement (mass/volume) Ordered By: Marilyn Stewart on 30-24-4973Yach binding capacity [Mass/Vol]Iron binding capacity [Mass/volume] in Serum or Crohts744-369VlkndjnwnPremier Health Upper Valley Medical Centererum or plasma iron saturation measurement (mass fraction)Ordered By: Marilyn Stewart on 07-35-9010Kwvs saturation [Mass fraction]Iron saturation [Mass Fraction] in Serum or Ojrrlb66-31HgbtcrhgqPremier Health Upper Valley Medical Centererum or plasma total cholesterol/high density lipoprotein (HDL) cholesterol mass rat Ordered By: Marilyn Stewart on 29-29-9992Hqfzzvajccm.total/Cholesterol in HDL [Mass ratio]Serum or plasma total cholesterol/high density lipoprotein (HDL) cholesterol mass rat<5.0Prem[facility] Health [facility] Medical Centerodium [Moles/volume] in Serum or PlasmaOrdered By: Marilyn Stewart on 48-96-3357Kwzufc [Moles/Vol]Sodium [Moles/volume] in Serum or Usfrmz002-882NnhfejqgeMercy Health St. Charles Hospital Specific gravity Test strip (U) [Rel density]Ordered By: Marilyn Stewart on 06-17-9605Acfrafrm gravity (U) [Rel density]Specific gravity of Urine by Test strip1.001-1.030Mer[facility] St. Charles HospitalTransferrin [Mass/volume] in Serum or PlasmaOrdered By: Marilyn Stewart on 12-31-3557Kweeryvvtqa [Mass/Vol] Transferrin [Mass/volume] in Serum or Egpkrs331-090ZbixgwhspMercy Health St. Charles HospitalTriglyceride [Mass/volume] in Serum or PlasmaOrdered By: Marilyn Stewart on 24-77-7943Fjcqqnljttdh [Mass/Vol]Triglyceride [Mass/volume] in Serum or Plasma 0-149Mercy Health St. Charles HospitalComment on above:TRIG ATP III CLASSIFICATIONTRIG less than 150 mg/dL NormalTRIG 150-199 mg/dL Borderline highTRIG 200-500 mg/dL High TRIG greater than 500 mg/dL Very highStandard traceable to the Center for Disease Conrtrol and Prevention (CDC) test method. Urate [Mass/volume] in Serum or PlasmaOrdered By: Marilyn Stewart on 01-23-8951Rhdcs [Mass/Vol]Urate [Mass/volume] in Serum or Plasma2.3-6.6FMercy Health St. Rita's Medical CenterUrea nitrogen [Mass/volume] in Serum or PlasmaOrdered By: Marilyn Stewart on 02-90-2316Mgta nitrogen [Mass/Vol]Urea nitrogen [Mass/volume] in Serum or PlasmaHigh7-25Mercy Health St. Charles HospitalUric Acidon 41-49-4039Ixmdz [Mass/Vol]3.8 mg/dLNormal2.3-6.6The [facility] Physician GroupComment on above: Performed By: #### MG, CMP, CBC, LIPID #### [address] StreetUrine Cultureon 77-95-2220Qxsjdtjv identified Cx Nom (U) ORGANISM: Escherichia coli (O:ESCCOL) Armstrong Count >100,000 Aerobic JUNAID Charge (NMIC56) SUSCEPTIBILITY [...] RESISTANT TO ALL B-LACTAM DRUGS. PERFORMED BY: [place] [address] PATHOLOGIST BLENDER CONVEYOR OPERATOR VEL GARCIA M.D.NormalThe [facility] Physician GroupComment on above: Performed By: #### MG, CMP, CBC, LIPID #### [facility] [address] [place] [address] USAUrine cultureOrdered By: Marilyn Stewart on 29-77-2014Bizmcpqq identified Cx Nom (U)Escherichia coliAbParkview Health Urine protein/creatinine ratioOrdered By: Marilyn tSewart on 12-28-2024 Protein/Creatinine (U) [Ratio]Urine protein/creatinine ratioHigh0-200Mercy [facility] Charles HospitalUrobilinogen Test strip (U) [Mass/Vol]Ordered By: Marilyn Stewart on 92-21-4999Ewktqmsxslol (U) [Mass/Vol]Urobilinogen [Mass/volume] in Urine by Test stripThe University of Toledo Medical CenterVitamin D 25 Hydroxy Totalon 88-02-5933Fvckojf D 25 Hydroxy Total58.1 ng/iAEoozre25-385Gux [facility] Physician GroupComment on above:Result Comment: VITAMIN D STATUS 25(OH)VITAMIN D RANGE (ng/mL) Deficient <20 Insufficient 20 to <30 Sufficient 30 to 100 Reference: Oli MF,Albert NC, ClaudeHawk LACKEY et al. Evaluation,treatment, and prevention of vitamin D deficiency; an Endocrine Society clinical practice guideline. JCEM. 2010; 96(7):1911-30. PERFORMED BY: [place] [id number] PATHOLOGIST BLENDER CONVEYOR OPERATOR EVL GARCIA M.D.Performed By: #### MG, CMP, CBC, LIPID #### [place] [id number] USAVitamin D+Metabolites [Mass/volume] in Serum or Plasma Ordered By: Marilyn Stewart on 24-25-5255Jjkxsgv D+Metabolites [Mass/Vol]Vitamin D+Metabolites [Mass/volume] in Serum or Hxntfg57-145KhfmnntkmMercy Health St. Charles HospitalComment on above:VITAMIN D STATUS 25(OH)VITAMIN D RANGE (ng/mL) Deficient <20 Insufficient 20 to <37Hlomqnqsil59 to 100Reference: Oli MF,Albert NC, Beltran LACKEY et al. Evaluation,treatment, and prevention of vitamin D deficiency; an Endocrine Society clinical practice guideline. JCEM. 2010; 96 (7):1911-30.pH Test strip (U)Ordered By: Marilyn Stewart on 19-50-7904jX (U)pH of Urine by Test strip5.0-9.0[facility] Charles HospitalX-ray reportOrdered By: René Fox on 93-28-3131Cacms reportUNIVERSITY HOSPITALS AHU[facility] Main [address] [address] [place], [place] [address] XRay Report Signed Patient: Anh Tejeda MR#: [id number] : 1950 Acct:[id number] Age/Sex: 73 / F ADM Date: 5 Loc: XD Room: Type: [facility] Attending Dr: Vinay Matta DO Copies to: [...] Jr DO 12/15/241613 Signed By: 12/15/[address] [facility] HospitalXR lumbar spine 6V w bendingon 60-17-9417DS lumbar spine 6V w bendingUNIVERSITY HOSPITALS AHUJA [facility] Main [employer] [address] [place] [address] XRay Report Signed Patient: Anh Tejeda MR#: [id number] : 1950 Acct:[id number] Age/Sex: 73 / F ADM Date: 12/15/24 Loc: XD Room: Type: [facility] Attending Dr: Vinay Matta DO Copies to: [...] Fox Jr DO 12/15/241613 Signed By: 12/15/24 [facility] Physician GroupCNPNon [id number] (HEMASA) ANH TEJEDA ([id number]) 1950 F Date Time Provider Department 10/10/24 [...] 01/29/2024 Encounter Status:Closed by SAMANTHA MCMAHAN on 10/10/24NormalCSelect Medical Specialty [facility], Inc W Auto Differential panel (Bld)on 97-96-7660Coyvnxtku (Bld) [#/Vol] 10*3/uLNormal<0.11CSycamore Medical Center on above:Order Comment: Specimen Type: BLOOD SPECIMENOrdering Facility: [facility] Address:[address], [place] [address]Stinrfymf By: #### 96432-4, 24470-3 ####[facility] LABCLIA [id number] [place], [place] [address]Rrprbrhsc/100 WBC (Bld)0.4 %NormalAdams County Regional Medical Center on above:Order Comment: Specimen Type: BLOOD SPECIMENOrdering Facility: [facility] Address:[address] [place], [place] [address]Zcqxsarsy By: #### 11278-4, 70058-9 ####[facility] LABCLIA [id number] [place], [place] [address]Gswrqnlafugn cell count method Nom (Bld)AutoNormalCSycamore Medical Center on above:Order Comment: Specimen Type: BLOOD SPECIMENOrdering Facility: [facility] Address:[address] [place], [place] [address]Performed By: #### 00234- 8, 67400-5 ####[facility] LABCLIA [id number] [place], [place] [address]Rggzlwdyxau (Bld) [#/Vol]0.17 10*3/uLNormal<0.46 [facility] on above:Order Comment: Specimen Type: BLOOD SPECIMENOrdering Facility: [facility] Address:[address] [place], [place] [address]Performed By: #### 60004-7, 71103-5 ####[facility] LABCLIA [id number] [place] [address] Eosinophils/100 WBC (Bld)3.3 %NormalAdams County Regional Medical Center on above: Order Comment: Specimen Type: BLOOD SPECIMENOrdering Facility: [facility] Address:[address] [place], [place] [address]Performed By: #### 17358- 8, 89311-2 ####[facility] LABCLIA [id number] [place], [place] [address]Lhlbiaetpjz distribution width (RBC) [Ratio]15.1 % High11.5-15.0[facility] on above:Order Comment: Specimen Type: BLOOD SPECIMENOrdering Facility: [facility] Address:[address] [place], [place] [address]Performed By: #### 99920-4, 87489-5 ####[facility] LABCLIA [id number] [place], [place] [address]Qdjxifoqts (Bld) [Volume fraction]33.0 %Low36.0-46.0 [facility] on above:Order Comment: Specimen Type: BLOOD SPECIMENOrdering Facility: [facility] Address:[address] [place], [place] [address]Performed By: #### 37017-3, 51470-9 ####[facility] LABCLIA [id number] [place] [address] Hemoglobin (Bld) [Mass/Vol]11.6 g/uPHijkwb20.5-15.5CLake County Memorial Hospital - West Comment on above:Order Comment: Specimen Type: BLOOD SPECIMENOrdering Facility: [facility] Address:[address] [place] [address] Performed By: #### 53206-2, 14714-3 ####[facility] LABCLIA [id number] [place], [place] [address]Hdchtynr granulocytes (Bld) [#/Vol]10*3/uLNormal<0.10[facility] Hospitalment on above:Order Comment: Specimen Type: BLOOD SPECIMENOrdering Facility: [facility] Address:[address] [place], [place] [address]Performed By: #### 88535- 8, 00189-8 ####[facility] LABIA [id number] [place], [place] [address]Zzffglbm granulocytes/100 WBC (Bld)0.4 %Normal [facility] on above:Order Comment: Specimen Type: BLOOD SPECIMENOrdering Facility: [facility] Address:[address] [place], [place] [address]Performed By: #### 20312-7, 55936-0 ####[facility] LABIA [id number] [place] [address] Lymphocytes (Bld) [#/Vol]1.32 10*3/uLNormal1.00-4.00[facility] Comment on above:Order Comment: Specimen Type: BLOOD SPECIMENOrdering Facility: [facility] Address:[address] [place] [address] Performed By: #### 94934-1, 32867-6 ####[facility] LABCLIA [id number] [place], [place] [address]Shrdroondim/100 WBC (Bld)25.5 %NormalAdams County Regional Medical Center on above:Order Comment: Specimen Type: BLOOD SPECIMENOrdering Facility: [facility] Address:[address] [place], [place] [address]Performed By: #### 15018-4, 65327-5 ####[facility] LABCLIA [id number] [place], [place] [address]OHK (RBC) [Entitic mass]29.7 ovOmdweg78.0-34.0[facility] on above:Order Comment: Specimen Type: BLOOD SPECIMENOrdering Facility: [facility] Address:[address] [place], [place] [address]Performed By: #### 23844-9, 66090-1 ####[facility] LABCLIA [id number] [place], [place] [address]TPGL (RBC) [Mass/Vol]35.2 g/sHXxtqif21.5-36.0[facility] on above:Order Comment: Specimen Type: BLOOD SPECIMENOrdering Facility: [facility] Address:[address] [place], [place] [address]Performed By: #### 88436-4, 81383-7 ####[facility] LABCLIA [id number] [place], [place] [address]EKI (RBC) [Entitic vol]84.6 fLNormal 80.0-100.0[facility] on above:Order Comment: Specimen Type: BLOOD SPECIMENOrdering Facility: [facility] Address:[address] [place], [place] [address]Performed By: #### 94206-1, 92074-8 ####[facility] LABCLIA [id number] [place], [place] [address]Pmbpxjdwx (Bld) [#/Vol]0.28 10*3/uLNormal<0.87[facility] on above:Order Comment: Specimen Type: BLOOD SPECIMENOrdering Facility: [facility] Address:[address] [place], [place] [address]Performed By: #### 92372-4, 42883-1 ####[facility] LABCLIA [id number] [place] [address] Monocytes/100 WBC (Bld)5.4 %NormalAdams County Regional Medical Center on above: Order Comment: Specimen Type: BLOOD SPECIMENOrdering Facility: [facility] Address:[address] [place], [place] [address]Performed By: #### 53687- 8, 89128-6 ####[facility] LABCLIA [id number] [place], [place] [address]Jikpszwlunz (Bld) [#/Vol]3.37 10*3/uLNormal 1.45-7.50[facility] on above:Order Comment: Specimen Type: BLOOD SPECIMENOrdering Facility: [facility] Address:[address] [place], [place] [address]Performed By: #### 73715-6, 00305-5 ####[facility] LABCLIA [id number] [place], [place] [address]Gqevbslobzh/100 WBC (Bld)65.0 %NormalAdams County Regional Medical Center on above:Order Comment: Specimen Type: BLOOD SPECIMENOrdering Facility: [facility] Address:[address] [place], [place] [address]Performed By: #### 64392-9, 33470-5 ####[facility] LABIA [id number] [place], [place] [address]Meymqbzxz RBC (Bld) [#/Vol]10*3/uLNormal<0.01[facility] on above:Order Comment: Specimen Type: BLOOD SPECIMENOrdering Facility: [facility] Address:[address] [place], [place] [address]Performed By: #### 90324- 8, 90818-7 ####[facility] LABCLIA [id number] [place], [place] [address]Mgbnctbws RBC/100 WBC (Bld) [Ratio]0.0 /100 WBC NormalAdams County Regional Medical Center on above:Order Comment: Specimen Type: BLOOD SPECIMENOrdering Facility: [facility] Address:[address] [place], [place] [address]Performed By: #### 97196-9, 40943-1 ####[facility] LABCLIA [id number] [place], [place] [address]Hyqvsvdv mean volume (Bld) [Entitic vol]9.8 fLNormal9.0-12.7CSycamore Medical Center on above:Order Comment: Specimen Type: BLOOD SPECIMENOrdering Facility: [facility] Address:[address] [place], [place] [address]Performed By: #### 48253-3, 83319-6 ####[facility] LABIA [id number] [place] [address] Platelets (Bld) [#/Vol]126 10*3/xHHxa000-541DemywapkhAdams County Regional Medical Center on above:Order Comment: Specimen Type: BLOOD SPECIMENOrdering Facility: [facility] Address:[address] [place], [place] [address]Result Comment: Results checked and verified.No clot detected.Performed By: #### 32929-0, 29524- 0 ####[facility] LABIA [id number] [place], [place] [address]QTQ (Bld) [#/Vol]3.90 10*6/uLNormal3.90-5.20[facility] on above:Order Comment: Specimen Type: BLOOD SPECIMENOrdering Facility: [facility] Address:[address] [place], [place] [address]Performed By: #### 69436-8, 23549-4 ####[facility] LABCLIA [id number] [place], [place] [address]NCJ (Bld) [#/Vol]5.18 10*3/uLNormal3.70-11.00[facility] Medical CenterComment on above:Order Comment: Specimen Type: BLOOD SPECIMENOrdering Facility: [facility] Address:[address], [place] [address]Wkgiulnli By: #### 44282-2, 05804-6 ####[facility] HOSPITALZANDRA [facility] LABCLIA [id number] [place], [place] [address]RKTZZFjo 16-79-3753SNYXZXEjytz (SP) Office (HEMASA) ANH TEJEDA ([id number]) 1950 F Date Time Provider Department 10/07/24 2:30 PM DAKSHA BRIDGES During your visit today, we recorded the following information about you: Temperature Pulse Respiration Blood pressure 97.1 degrees 81/minute 18/minute 144/75 Weight Height 96.7 kg 1.58 m Daksha Bridges PA-C 10/07/2024 2:56 PM Signed Hematology Progress Note PATIENT NAME: Anh Tejeda CLINIC NO.: [id number] ATTENDING PHYSICIAN: Henry Walker MD DATE OF [...] bilaterally Abdomen: Benign Extremities: (more content not included)...NormalUniversity Hospitals Conne[facility] Center Comprehensive metabolic 2000 panelon 78-89-9482Abrdukw [Mass/Vol]3.9 g/dLNormal 3.9-4.9CLake County Memorial Hospital - WestComment on above:Order Comment: Specimen Type: BLOOD SPECIMEN [facility] Address: [address] [place], [place] [address]Performed By: #### 66172-9, 2276-4 #### [facility] CLIA [id number] [address] [place] [address] [place] AMERICAALP [Catalytic activity/Vol] 182 U/TNzqa72-513VqwzylhqiAdams County Regional Medical Center on above:Order Comment: Specimen Type: BLOOD SPECIMEN [facility] Address: [address] [place], [place] [address]Performed By: #### 66806-2, 2275- #### [facility] CLIA [id number] [address] [place] [address] [place] AMERICAALT [Catalytic activity/Vol] 17 U/LNormal7-38[facility] on above:Order Comment: Specimen Type: BLOOD SPECIMEN [facility] Address: [address] [place], [place] [address]Performed By: #### 21914-3, 2276-02 #### [facility] CLIA [id number] [address] [place] [address] [place] AMERICAAnion gap [Moles/Vol]11 mmol/LNormal8-15[facility] on above:Order Comment: Specimen Type: BLOOD SPECIMEN [facility] Address: [address] [place], [place] [address]Performed By: #### 11096-5, 2276-02 #### [facility] CLIA [id number] [address] [place] [address] [place] AMERICAAST [Catalytic activity/Vol] 21 U/TIhtwqx76-26LltozqfstAdams County Regional Medical Center on above:Order Comment: Specimen Type: BLOOD SPECIMEN [facility] Address: [address] [place], [place] [address]Performed By: #### 16140-0, 2275-4 #### [facility] CLIA [id number] [address] [place], [place] [address] [place] AMERICABilirubin [Mass/Vol]0.6 mg/dLNormal0.2-1.3CSycamore Medical Center on above:Order Comment: Specimen Type: BLOOD SPECIMEN [facility] Address: [address] [place], [place] [address]Performed By: #### 47513-8, 2276-02 #### [facility] CLIA [id number] [address] [place] [address] [place] AMERICACalcium [Mass/Vol]9.1 mg/dL Normal8.5-10.2CSycamore Medical Center on above:Order Comment: Specimen Type: BLOOD SPECIMEN [facility] Address: [address] [place], [place] [address]Performed By: #### 03754-5, 2276-02 #### [facility] CLIA [id number] [address] [place] [address] [place] AMERICAChloride [Moles/Vol]99 mmol/EJvuatz18-920GytbcpxnnAdams County Regional Medical Center on above:Order Comment: Specimen Type: BLOOD SPECIMEN [facility] Address: [address] [place], [place] [address]Performed By: #### 43310-9, 2276-02 #### [facility] CLIA [id number] [address] [place] [address] [place] AMERICACO2 [Moles/Vol]27 mmol/L Fnvsjq01-28NwuskxbmpAdams County Regional Medical Center on above:Order Comment: Specimen Type: BLOOD SPECIMEN [facility] Address: [address] [place], [place] [address]Performed By: #### 50458-4, 2276-02 #### [facility] CLIA [id number] [address] [place] [address] [place] AMERICACreatinine [Mass/Vol]1.33 mg/dLHigh0.58-0.96[facility] on above:Order Comment: Specimen Type: BLOOD SPECIMEN [facility] Address: [address] [place], [place] [address]Performed By: #### 71963-0, 6-4 #### [facility] CLIA [id number] [address] [place] [address] [place] AMERICACreatinine and Glomerular filtration rate.predicted panel (S/P/Bld)42 mL/min/1.73m???Low>=60[facility] on above:Order Comment: Specimen Type: BLOOD SPECIMEN [facility] Address: [address] [place], [place] [address]Result Comment: Estimated Glomerular Filtration Rate (eGFR) is [...] not accurately reflect actual GFR.Performed By: #### 49308-6, 2276-02 #### [facility] CLIA [id number] [address] [place] [address] [place] AMERICAGlucose [Mass/Vol]361 mg/dL Zmqn61-47AjteynsevAdams County Regional Medical Center on above:Order Comment: Specimen Type: BLOOD SPECIMEN [facility] Address: [address] [place], [place] [address]Result Comment: The [place] Diabetes Association (ADA) provides guidance for cutoff [...] Standards of Medical Care in Diabetes 2016, [place] [employer]. Diabetes Care. 2016.39(Suppl 1).Performed By: #### 91269-7, 2276-02 #### [facility] CLIA [id number] [address] [place], [place] [address] [place] AMERICAPotassium [Moles/Vol]4.7 mmol/LNormal3.7-5.1CSycamore Medical Center on above:Order Comment: Specimen Type: BLOOD SPECIMEN [facility] Address: [address] [place], [place] [address]Performed By: #### 00253-6, 2276-02 #### [facility] CLIA [id number] [address] [place] [address] [place] AMERICAProtein [Mass/Vol]6.4 g/dL Normal6.3-8.0[facility] on above:Order Comment: Specimen Type: BLOOD SPECIMEN [facility] Address: [address] [place], [place] [address]Performed By: #### 37772-1, 2276-02 #### [facility] CLIA [id number] [address] [place] [address] [place] AMERICASodium [Moles/Vol]137 mmol/L Kqccsm948-762YcjbcmpgqAdams County Regional Medical Center on above:Order Comment: Specimen Type: BLOOD SPECIMEN [facility] Address: [address] [place], [place] [address]Performed By: #### 67323-9, 2276-02 #### [facility] CLIA [id number] [address] [place] [address] [place] AMERICAUrea nitrogen [Mass/Vol]33 mg/dLHigh7-21[facility] on above:Order Comment: Specimen Type: BLOOD SPECIMEN [facility] Address: [address] [place], [place] [address]Performed By: #### 97132-7, 2276-02 #### [facility] CLIA [id number] [address] [place] [address] [place] AMERICAFerritin SerPl-mCncon 99-43-1665Qurzlvjr [Mass/Vol]528.0 ng/lNJvll38.7-205.1CLake [facility] Comment on above:Order Comment: Specimen Type: BLOOD SPECIMEN [facility] Address: [address] [place], [place] [address]Performed By: #### 73542-6, 6-4 #### [facility] CLIA [id number] [address] [place] [address] [place] AMERICAIron and Iron binding capacity panelon 93-38-2928Osuu [Mass/Vol]64 ug/vEUfcjek45-247TjiotnobsUniversity Hospitals Conneaut Medical CenterComment on above:Order Comment: Specimen Type: BLOOD SPECIMEN [facility] Address: [address] [place], [place] [address]Performed By: #### 98986-2, 4 #### [facility] CLIA [id number] [address] [place] [address] [place] AMERICAIron binding capacity [Mass/Vol]331 ug/eXWuxzuj216-701ClqterqvoUniversity Hospitals Conneaut Medical CenterComment on above:Order Comment: Specimen Type: BLOOD SPECIMEN [facility] Address: [address] [place], [place] [address]Performed By: #### 40974-5, 2275-4 #### [facility] CLIA [id number] [address] [place] [address] [place] AMERICAIron/TIBC [Molar ratio]19.3 %Bjplxb38.0-57.0[facility] on above:Order Comment: Specimen Type: BLOOD SPECIMEN [facility] Address: [address] [place], [place] [address]Performed By: #### 45137-4, 2275- #### [facility] CLIA [id number] [address] [place] [address] [place] AMERICARetics #on 10-07-2024 Reticulocytes (Bld) [#/Vol]0.12196 10*3/uLHigh0.018-0.100[facility] on above:Order Comment: Specimen Type: BLOOD SPECIMENOrdering Facility: [facility] Address:[address] [place], [place] [address]Performed By: #### 50058-9, 62690-4 ####[facility] LABCLIA [id number] [place], [place] [address]Tadsmsznvquit (Bld) [#/Vol]on 66-48-0805Rqeexddtkganu/100 RBC (Bld)3.5 %High0.4-2.0[facility] on above:Order Comment: Specimen Type: BLOOD SPECIMENOrdering Facility: [facility] Address:[address] [place], [place] [address]Performed By: #### 76959-0, 50511-8 ####[facility] LABCLIA [id number] [place], [place] [address]Zzvnssnxqg Visit Summaryon 21-02-7520Siaaabsxtz Visit SummaryAmbulatory Visit Summary ANH TEJEDA :1950 [...] Obesity due to excess calories Pickup at [facility]/pharmacy #[id number] Unchanged allopurinol (allopurinol 100 mg Tab) 1 [...] physician if questions or concerns Pharmacy Information [facility]/pharmacy #[id number]: [address], [place] [phone] Allergies Tylenol with Codeine #3 (Upset stomach) [...] for choosing us (more content not included)...Normal [facility] HospitalGastro[facility] Office/Clinic Noteon 09-29-2024 Gastroenterology Office/Clinic NoteGastroenterology [...] systems reviewed, negative except (more content not included)...[facility] CenterComment on above:Result Comment: Electronically Signed By: Shanel DONG, Verónica Finch\.br\Date and Time Signed: 09/29/2410:08 ESTAlanine aminotransferase [Enzymatic activity/volume] in Serum or PlasmaOrdered By: Vinay Matta on 29-18-4992VFE [Catalytic activity/Vol]15 U/LNormal [facility] Charles HospitalComment on above:Order Comment: A1C IS NOT DUE UNTIL OCTOBER.Performed By: #### MG, CMP, CBC, LIPID #### [facility] [address] [place] [address] [place] [Catalytic activity/Vol]Alanine aminotransferase [Enzymatic activity/volume] in Serum or PlasmaMercy Health St. Charles HospitalAlbumin [Mass/volume] in Serum or Plasma by Bromocresol green (BCG) dye binding methoOrdered By: Vinay Bunting on 96-34-8981Dhwsyyh BCG dye [Mass/Vol] 4.0 g/dL3.5-5.7FMercy Health St. Rita's Medical CenterAlbumin BCG dye [Mass/Vol] Albumin [Mass/volume] in Serum or Plasma by Bromocresol green (BCG) dye binding metho3.5-5.7FMercy Health St. Rita's Medical CenterAlkaline phosphatase [Enzymatic activity/volume] in Serum or PlasmaOrdered By: Vinay Bunting on [id number] [Catalytic activity/Vol]141 U/WPnen88-220Lmfbgrhit[address] [place] [address] Comment on above:Order Comment: A1C IS NOT DUE UNTIL OCTOBER.Performed By: #### MG, CMP, CBC, LIPID #### [facility] [address] [place] [address] USAALP [Catalytic activity/Vol]Alkaline phosphatase [Enzymatic activity/volume] in Serum or FzjyueElwc94-996Aqmqvbwub66 Watson StreetAspartate aminotransferase [Enzymatic activity/volume] in Serum or PlasmaOrdered By: Vinay Bunting on [id number] [Catalytic activity/Vol]16 U/L Sthnqz57-11Zspzxrovu79 Nguyen StreetComment on above:Order Comment: A1C IS NOT DUE UNTIL OCTOBER.Performed By: #### MG, CMP, CBC, LIPID #### [facility] Ctr [address] [place], [place] [id number] USAAST [Catalytic activity/Vol]Aspartate aminotransferase [Enzymatic activity/volume] in Serum or Wqphxw65-22Ovsgxvwmd79 Nguyen StreetAutomated basophil %Ordered By: Vinay Bunting on 89-68-3772Acshtzoph/100 WBC (Bld)0.5 %Normal.[facility] Charles HospitalComment on above:Order Comment: A1C IS NOT DUE UNTIL OCTOBER.Performed By: #### MG, CMP, CBC, LIPID #### [facility] [address] [place] [address] USAAutomated basophil countOrdered By: Vinay Bunting on 49-85-5695Vceckcmsp (Bld) [#/Vol]0.0 10*3/uLNormal0.0-0.2FMercy Health St. Rita's Medical CenterComment on above:Order Comment: A1C IS NOT DUE UNTIL OCTOBER. Result Comment: PERFORMED BY: [place] [address] PATHOLOGIST BLENDER CONVEYOR OPERATOR THERESA MULLER M.D.Performed By: #### MG, CMP, CBC, LIPID #### [place] [address] USAAutomated blood monocyte countOrdered By: Vinay Bunting on 77-30-0164Adaesdqzh (Bld) [#/Vol]0.3 10*3/uLNormal0.0-0.8[facility] Charles HospitalComment on above:Order Comment: A1C IS NOT DUE UNTIL OCTOBER. Performed By: #### MG, CMP, CBC, LIPID #### [place] [address] USAAutomated eosinophil %Ordered By: Vinay Bunting on 07-10-9085Kwydnqtoikz/100 WBC (Bld)2.9 %Normal.[facility] Comment on above:Order Comment: A1C IS NOT DUE UNTIL OCTOBER.Performed By: #### MG, CMP, CBC, LIPID #### [place] [address] USAAutomated eosinophil countOrdered By: Vinay Bunting on 46-94-3875Drcadyqnysk (Bld) [#/Vol]0.2 10*3/uLNormal0.0-0.45[facility] Charles HospitalComment on above:Order Comment: A1C IS NOT DUE UNTIL OCTOBER. Performed By: #### MG, CMP, CBC, LIPID #### [place] [address] USAAutomated monocyte %Ordered By: Vinay Bunting on 36-54-5609Gaikwelus/100 WBC (Bld)5.0 %Normal.[facility] Comment on above:Order Comment: A1C IS NOT DUE UNTIL OCTOBER.Performed By: #### MG, CMP, CBC, LIPID #### [place] [address] USAAutomated neutrophil %Ordered By: Vinay Bunting on 27-79-6325Zduqegdnhyb/100 WBC (Bld)64.0 %Normal.[facility] Charles HospitalComment on above:Order Comment: A1C IS NOT DUE UNTIL OCTOBER.Performed By: #### MG, CMP, CBC, LIPID #### [facility] [address] [place] [address] USABasophils Auto (Bld) [#/Vol]Ordered By: Vinay Bunting on 06-28-8359Jwkfiqrfv (Bld) [#/Vol]Automated basophil count0.0-0.2FMercy Health St. Rita's Medical CenterBasophils/100 WBC Auto (Bld)Ordered By: Vinay Bunting on 20-91-1389Anjzrophh/100 WBC (Bld)Automated basophil %.[facility] Charles HospitalBilirubin.total [Mass/volume] in Serum or PlasmaOrdered By: Vinay Bunting on 90-65-9035Urhvyxvaw [Mass/Vol]0.8 mg/dLNormal0.3-1.0[facility] Charles HospitalComment on above:Order Comment: A1C IS NOT DUE UNTIL OCTOBER.Performed By: #### MG, CMP, CBC, LIPID #### [facility] [address] [place] [address] USABilirubin [Mass/Vol]Bilirubin.total [Mass/volume] in Serum or Plasma0.3-1.0[facility] HospitalCalcium [Mass/volume] in Serum or PlasmaOrdered By: Vinay Bunting on 21-22-3181Tsparfu [Mass/Vol]9.1 mg/dL Normal8.6-10.3FMercy Health St. Rita's Medical CenterComment on above:Order Comment: A1C IS NOT DUE UNTIL OCTOBER.Performed By: #### MG, CMP, CBC, LIPID #### [facility] [address] [place] [address] USACalcium [Mass/Vol]Calcium [Mass/volume] in Serum or Plasma 8.6-10.3FMercy Health St. Rita's Medical CenterCarbon dioxide, total [Moles/volume] in Serum or PlasmaOrdered By: Vinay Bunting on 29-27-2032IU0 [Moles/Vol]31.3 mmol/LHigh21.0-31.0[facility] Charles HospitalComment on above:Order Comment: A1C IS NOT DUE UNTIL OCTOBER.Performed By: #### MG, CMP, CBC, LIPID #### [facility] [address] [place] [address] USACO2 [Moles/Vol]Carbon dioxide, total [Moles/volume] in Serum or KkzckrLwcp55.0-31.0[facility] Charles HospitalChloride [Moles/volume] in Serum or PlasmaOrdered By: Vinay Matta on 09-19-2024 Chloride [Moles/Vol]101 mmol/FFxsxnk19-315Lieyzoh[address] [place] [address] Comment on above:Order Comment: A1C IS NOT DUE UNTIL OCTOBER.Performed By: #### MG, CMP, CBC, LIPID #### [facility] [address] [place] [address] USAChloride [Moles/Vol]Chloride [Moles/volume] in Serum or Kccmvd51-016UyujyamnhMercy Health St. Charles HospitalCholesterol [Mass/volume] in Serum or PlasmaOrdered By: Vinay Matta on 67-24-9779Zbzvjhfigyu [Mass/Vol]132 mg/dL Yku849-651LfgjtchmfMercy Health St. Charles HospitalComment on above:Chol less than 200 mg/dl low riskChol 201-239 mg/dl borderline riskChol 240 mg/dl and greater high riskOrder Comment: A1C IS NOT DUE UNTIL OCTOBER.Result Comment: Chol less than 200 mg/dl low risk Chol 201-239 mg/dl borderline risk Chol 240 mg/dl and greater high riskPerformed By: #### MG, CMP, CBC, LIPID #### [facility] [address] [place] [address] USACholesterol [Mass/Vol]Cholesterol [Mass/volume] in Serum or DwxolwXgs237-459FpbmljjrhMercy Health St. Charles HospitalComment on above:Chol less than 200 mg/dl low riskChol 201-239 mg/dl borderline riskChol 240 mg/dl and greater high riskCholesterol in HDL [Mass/volume] in Serum or PlasmaOrdered By: Vinay Matta on 94-46-9299Otosaiirvvd in HDL [Mass/Vol]Serum or plasma high density lipoprotein (HDL) cholesterol zrulmokygnb65-32OmrysextlMercy Health St. Charles HospitalComment on above:HDL CHOL ATP-III CLASSIFICATION Cardiovascular RiskHDL > or equal to 60 mg/dL LOWHDL < 40 mg/dL HIGHCholesterol in LDL Calc [Mass/Vol] Ordered By: Vinay Matta on 01-33-3463Evydqovitzw in LDL [Mass/Vol]61 mg/dL 0-100[facility] St[facility] Charles HospitalComment on above:LDL ATP III CLASSIFICATIONLDL less than 100 mg/dL OptimalLDL 100-129 mg/dL Near or above inhvecdJVO851-442 mg/dL Borderline highLDL 160-189 mg/dL HighLDL greater than 189 mg/dL Very highCholesterol in LDL [Mass/Vol]Cholesterol in LDL [Mass/volume] in Serum or Plasma by calculation0Mer[facility] St. Charles HospitalComment on above:LDL ATP III CLASSIFICATIONLDL less than 100 mg/dL OptimalLDL 100-129 mg/dL Near or above jzyoazoJTH660-166 mg/dL Borderline highLDL 160-189 mg/dL HighLDL greater than 189 mg/dL Very highCholesterol in VLDL Calc [Mass/Vol] Ordered By: Vinay Matta on 68-18-9811Umbyfyjllwc in VLDL [Mass/Vol]30 mg/dL [facility] Charles HospitalCholesterol in VLDL [Mass/Vol]Cholesterol in VLDL [Mass/volume] in Serum or Plasma by calculationMercy Health St. Charles HospitalComplete Blood Count Auto Diffon 49-74-5589Emct Corpuscular HGB Conc35.0 g/sIKjnaox58.0-35.0The [facility] Physician GroupComment on above:Order Comment: A1C IS NOT DUE UNTIL OCTOBER.Performed By: #### MG, CMP, CBC, LIPID #### [facility] [address] [place] [address] USANRBC%0.1 /100{WBC}Normal0-0.5[facility] Comment on above:Order Comment: A1C IS NOT DUE UNTIL OCTOBER.Performed By: #### MG, CMP, CBC, LIPID #### [facility] [address] [place] [address] USAComprehensive Metabolic Panelon 06-02-5487Kewsfjt [Mass/Vol]4.0 g/dLNormal3.5-5.7The [facility] Physician GroupComment on above: Order Comment: A1C IS NOT DUE UNTIL OCTOBER.Performed By: #### MG, CMP, CBC, LIPID #### [facility] [address] [place] [address] USAGFR/1.73 sq M.predicted MDRD (S/P/Bld) [Vol rate/Area] 32.214 mL/min/{1.73_m2}NormalThe [facility] Specialty Hospital Physician GroupComment on above:Order Comment: A1C IS NOT DUE UNTIL OCTOBER.Performed By: #### MG, CMP, CBC, LIPID #### [facility] [address] [place] [address] USACreatinine [Mass/volume] in Serum or PlasmaOrdered By: Vinay Bunting on 51-59-0745Hojdlouwiy [Mass/Vol]1.65 mg/dLHigh0.60-1.[address] Charles HospitalComment on above:Order Comment: A1C IS NOT DUE UNTIL OCTOBER.Performed By: #### MG, CMP, CBC, LIPID #### [facility] [address] [place] [address] USACreatinine [Mass/Vol]Creatinine [Mass/volume] in Serum or PlasmaHigh0.60-1.20[facility] HospitalEosinophils Auto (Bld) [#/Vol]Ordered By: Vinay Bunting on 83-29-7392Jmfojvhyumk (Bld) [#/Vol] Automated eosinophil count0.0-0.45[facility] Eosinophils/100 WBC Auto (Bld)Ordered By: Vinay Bunting on 09-19-2024 Eosinophils/100 WBC (Bld)Automated eosinophil %.[facility] Charles HospitalErythrocyte distribution width Auto (RBC) [Ratio]Ordered By: Vinay Bunting on 94-25-6343Ydwtteuscrg distribution width (RBC) [Ratio]Erythrocyte distribution width [Ratio] by Automated qqwzhDvud16.9-15.3FMercy Health St. Rita's Medical CenterErythrocyte distribution width [Ratio] by Automated countOrdered By: Vinay Bunting on 01-82-7130Hixynwqqjrl distribution width (RBC) [Ratio]16.3 %High11.9-15.3FMercy Health St. Rita's Medical CenterComment on above:Order Comment: A1C IS NOT DUE UNTIL OCTOBER.Performed By: #### MG, CMP, CBC, LIPID #### [facility] [address] [place] [address] USAErythrocytes [#/volume] in Blood by Automated countOrdered By: Vinay Matta on 40-24-3877GMO (Bld) [#/Vol]4.03 10*6/uLNormal3.60-5.[address] Charles HospitalComment on above:Order Comment: A1C IS NOT DUE UNTIL OCTOBER.Performed By: #### MG, CMP, CBC, LIPID #### [facility] [address] [place] [address] USAGlobulin Calc (S) [Mass/Vol]Ordered By: Vinay Matta on 33-51-1025Kmlvrexk (S) [Mass/Vol]Serum globulin measurement by calculation (mass/volume)[facility] HospitalGlucose [Mass/volume] in Serum or PlasmaOrdered By: Vinay Matta on 27-50-1129Syyeedc [Mass/Vol]195 mg/dLHigh 70-100[facility] St[facility] Charles HospitalComment on above:ADA recommended reference rangeRandom Glucose Reference [...] By: #### MG, CMP, CBC, LIPID #### [facility] [address] [place] [address] USAGlucose [Mass/Vol]Glucose [Mass/volume] in Serum or Plasma Zden07-013HfizdkvsrMercy Health St. Charles HospitalComment on above:ADA recommended reference rangeRandom Glucose Reference Range is dependent on time and content of last meal. Glucose of more than 200 mg/dL in a nonstressed, ambulatory subject supports the diagnosisof Diabetes Mellitus.Hematocrit Auto (Bld) [Volume fraction]Ordered By: Vinay Matta on 65-65-6024Zzahzukyao (Bld) [Volume fraction]Hematocrit [Volume Fraction] of Blood by Automated count34.0-46.[address] [facility] HospitalHematocrit [Volume Fraction] of Blood by Automated countOrdered By: Vinay Matta on 62-35-3377Dfblhzcrvs (Bld) [Volume fraction]34.1 %Ykguwm85.0-46.4FMercy Health St. Rita's Medical CenterComment on above: Order Comment: A1C IS NOT DUE UNTIL OCTOBER.Performed By: #### MG, CMP, CBC, LIPID #### [facility] [address] [place] [id number] USAHemoglobin [Mass/volume] in BloodOrdered By: Vinay Matta on 91-65-6368Hbhwdgndsc (Bld) [Mass/Vol]12.0 g/cBCiacsl60.8-15.[address] [facility] HospitalComment on above:Order Comment: A1C IS NOT DUE UNTIL OCTOBER.Performed By: #### MG, CMP, CBC, LIPID #### [facility] [address] [place] [address] USAHemoglobin (Bld) [Mass/Vol]Hemoglobin [Mass/volume] in Blood11.8-15.4FMercy Health St. Rita's Medical CenterLeukocytes [#/volume] corrected for nucleated erythrocytes in Blood by Automated counOrdered By: Vinay Matta on 51-68-8594YCR corrected for nucl RBC Auto (Bld) [#/Vol]5.5 10*3/uL3.8-11.[address] [facility] HospitalWBC corrected for nucl RBC Auto (Bld) [#/Vol] Leukocytes [#/volume] corrected for nucleated erythrocytes in Blood by Automated coun3.8-11.6FMercy Health St. Rita's Medical CenterLeukocytes [#/volume] in Blood by Automated countOrdered By: Vinay Matta on 10-07-6288GDF (Bld) [#/Vol]5.5 10*3/uLNormal3.8-11.6FMercy Health St. Rita's Medical CenterComment on above:Order Comment: A1C IS NOT DUE UNTIL OCTOBER.Performed By: #### MG, CMP, CBC, LIPID #### [facility] [address] [place] [address] USALipid Panelon 92-66-1767TZT Cholesterol,Nmrrjhujde56 mg/dL Normal0-100The [facility] Physician GroupComment on above:Order Comment: A1C IS NOT DUE UNTIL OCTOBER.Result Comment: LDL ATP III CLASSIFICATION LDL less than 100 mg/dL Optimal LDL 100-129 mg/dL Near or above optimal LDL 130-159 mg/dL Borderline high LDL 160-189 mg/dL High LDL greater than 189 mg/dL Very highPerformed By: #### MG, CMP, CBC, LIPID #### [facility] [address] [place] [id number] USATriglyceride w/Xlsvwe153 mg/dLHigh0-149The [facility] Hospital Physician GroupComment on above:Order Comment: A1C IS NOT DUE UNTIL OCTOBER. Result Comment: TRIG ATP III CLASSIFICATION TRIG less than 150 mg/dL Normal TRIG 150-199 mg/dL Borderline high TRIG 200-500 mg/dL High TRIG greater than 500 mg/dL Very high Standard traceable to the Center for Disease Conrtrol and Prevention (CDC) test method.Performed By: #### MG, CMP, CBC, LIPID #### [facility] [address] [place] [id number] USAVLDL JDSOZBYOIXU68 mg/dLNoCape Fear Valley Bl[facility] Physician [facility] General HospitalComment on above:Order Comment: A1C IS NOT DUE UNTIL OCTOBER.Performed By: #### MG, CMP, CBC, LIPID #### [place] [id number] USALymphocytes Auto (Bld) [#/Vol]Ordered By: Vinay Matta on 83-56-0413Jpuygcjnrvs (Bld) [#/Vol]Lymphocytes [#/volume] in Blood by Automated count1.00-4.8[facility] Charles HospitalLymphocytes [#/volume] in Blood by Automated countOrdered By: Vinay Matta on 02-64-3195Gkgtgglnjvs (Bld) [#/Vol]1.5 10*3/uLNormal1.00-4.8[facility] HospitalComment on above:Order Comment: A1C IS NOT DUE UNTIL OCTOBER.Performed By: #### MG, CMP, CBC, LIPID #### [facility] [address] [place] [id number] USALymphocytes/100 WBC Auto (Bld)Ordered By: Vinay Bunhomer on 21-29-8478Kkmeipvaazq/100 WBC (Bld)Lymphocytes/100 leukocytes in Blood by Automated count.[facility] HospitalLymphocytes/100 leukocytes in Blood by Automated countOrdered By: Vinay Bunting on 65-60-4096Inuwqkscxfa/100 WBC (Bld)27.6 %Normal.[facility] HospitalComment on above:Order Comment: A1C IS NOT DUE UNTIL OCTOBER.Performed By: #### MG, CMP, CBC, LIPID #### [facility] [address] Auto (RBC) [Entitic mass]Ordered By: Vinay Bunting on 09-41-3089JLW (RBC) [Entitic mass]MCH [Entitic mass] by Automated count24.7-34.3 [facility] [Entitic mass] by Automated countOrdered By: Vinay Bunting on 47-22-2694XYZ (RBC) [Entitic mass]29.7 qjWgpkls60.7-34.[address] [facility] HospitalComment on above:Order Comment: A1C IS NOT DUE UNTIL OCTOBER.Performed By: #### MG, CMP, CBC, LIPID #### [facility] [address] [place] [id number] [facility] Auto (RBC) [Mass/Vol]Ordered By: Vinay Bunting on 82-35-9251PIOF (RBC) [Mass/Vol]35.0 g/dL32.0-35.0[facility] ClinicHC (RBC) [Mass/Vol]MCHC [Mass/volume] by Automated count32.0-35.0 [facility] Auto (RBC) [Entitic vol]Ordered By: Vinay Bunting on 57-77-3252NOF (RBC) [Entitic vol]MCV [Entitic volume] by Automated -833DufszfjwiMarietta Osteopathic ClinicV [Entitic volume] by Automated countOrdered By: Vinay Bunting on 03-36-0216FPJ (RBC) [Entitic vol]84.7 fL Hgvtuz65-122SqepurdupMercy Health St. Charles HospitalComment on above:Order Comment: A1C IS NOT DUE UNTIL OCTOBER.Performed By: #### MG, CMP, CBC, LIPID #### [facility] [address] [place] [address] USAMagnesium [Mass/volume] in Serum or PlasmaOrdered By: Vinay Bunting on 00-71-6297Qxvjlmaxg [Mass/Vol]1.3 mg/dLLow1.9-2.7FMercy Health St. Rita's Medical CenterComment on above:Order Comment: A1C IS NOT DUE UNTIL OCTOBER.Performed By: #### MG, CMP, CBC, LIPID #### [facility] [address] [place] [address] USAMagnesium [Mass/Vol]Magnesium [Mass/volume] in Serum or PlasmaLow1.9-2.7FMercy Health St. Rita's Medical CenterMonocytes Auto (Bld) [#/Vol] Ordered By: Vinay Bunting on 25-73-6711Suxeiejnz (Bld) [#/Vol]Automated blood monocyte count0.0-0.8[facility] HospitalMonocytes/100 WBC Auto (Bld)Ordered By: Vinay Bunting on 73-49-1574Cebuvylfj/100 WBC (Bld)Automated monocyte %.[facility] HospitalNeutrophils Auto (Bld) [#/Vol] Ordered By: Vinay Bunting on 70-54-9172Njnsxcjyzcp (Bld) [#/Vol]Neutrophils [#/volume] in Blood by Automated count1.8-7.7FMercy Health St. Rita's Medical Center Neutrophils [#/volume] in Blood by Automated countOrdered By: Vinay Bunting on 77-42-8594Pndueluydqh (Bld) [#/Vol]3.5 10*3/uLNormal1.8-7.7FMercy Health St. Rita's Medical CenterComment on above:Order Comment: A1C IS NOT DUE UNTIL OCTOBER. Performed By: #### MG, CMP, CBC, LIPID #### [facility] [address] [place] [address] USANeutrophils/100 WBC Auto (Bld)Ordered By: Vinay Bunting on 79-72-6067Dwdrxgoyjlh/100 WBC (Bld)Automated neutrophil %.[facility] HospitalNo Panel InformationOrdered By: Vinay Bunting on 09-19-2024 Estimated GFR (CKD-EPI)32.214 mL/MinMercy Health St. Charles HospitalPharmacy Creatinine Clearance (ChemN/AFMercy Health St. Rita's Medical CenterNucleated erythrocytes [Presence] in Blood by Automated countOrdered By: Vinay Bunting on 06-58-4144Hktjwjokp RBC Auto Ql (Bld)0.1 /100{WBC}0-0.5FMercy Health St. Rita's Medical CenterNucleated RBC Auto Ql (Bld)Nucleated erythrocytes [Presence] in Blood by Automated count0-0.5FMercy Health St. Rita's Medical CenterPlatelet mean volume Auto (Bld) [Entitic vol]Ordered By: Vinay Bunting on 96-62-7862Bphrnszk mean volume (Bld) [Entitic vol]Platelet mean volume [Entitic volume] in Blood by Automated count6.3-10.7FMercy Health St. Rita's Medical CenterPlatelet mean volume [Entitic volume] in Blood by Automated countOrdered By: Vinay Bunting on 88-93-4226Umwzajlf mean volume (Bld) [Entitic vol]7.2 fLNormal6.3-10.7FMercy Health St. Rita's Medical CenterComment on above:Order Comment: A1C IS NOT DUE UNTIL OCTOBER.Performed By: #### MG, CMP, CBC, LIPID #### [facility] [address] [place] [id number] USAPlatelets Auto (Bld) [#/Vol]Ordered By: Vinay Bunting on 41-08-2927Xwpautpac (Bld) [#/Vol]Platelets [#/volume] in Blood by Automated vtdtfMiw212-739Fnrennge[address] [place], [place] [address]Platelets [#/volume] in Blood by Automated countOrdered By: Vinay Bunting on 70-44-7250Cijrxkvjt (Bld) [#/Vol] 145 10*3/tFXiw376-269Gdmofg[address] [place], [place] [address]Comment on above:Order Comment: A1C IS NOT DUE UNTIL OCTOBER.Performed By: #### MG, CMP, CBC, LIPID #### [facility] [address] [place] [address] USAPotassium [Moles/volume] in Serum or PlasmaOrdered By: Vinay Bunting on 36-06-7037Otzfdlasm [Moles/Vol]5.1 mmol/LNormal3.5-5.[address] [facility] HospitalComment on above:Order Comment: A1C IS NOT DUE UNTIL OCTOBER.Performed By: #### MG, CMP, CBC, LIPID #### [facility] [address] [place] [address] USAPotassium [Moles/Vol]Potassium [Moles/volume] in Serum or Plasma3.5-5.1FMercy Health St. Rita's Medical CenterProtein [Mass/volume] in Serum or PlasmaOrdered By: Vinay Bunting on 53-26-2920Execued [Mass/Vol]6.2 g/dLLow 6.4-8.9[facility] HospitalComment on above:Order Comment: A1C IS NOT DUE UNTIL OCTOBER.Performed By: #### MG, CMP, CBC, LIPID #### [facility] [address] [place] [address] USAProtein [Mass/Vol]Protein [Mass/volume] in Serum or Plasma Low6.4-8.9[facility] HospitalRBC Auto (Bld) [#/Vol]Ordered By: Vinay Bunting on 21-84-3846QBK (Bld) [#/Vol]Erythrocytes [#/volume] in Blood by Automated count3.60-5.00[facility] Medical Centererum globulin measurement by calculation (mass/volume)Ordered By: Vinay Bunting on 09-19-2024 Globulin (S) [Mass/Vol]2.2 g/dLNormalMercy Health St. Charles HospitalComment on above:Order Comment: A1C IS NOT DUE UNTIL OCTOBER.Performed By: #### MG, CMP, CBC, LIPID #### [facility] [address] [place] [address] USASerum or plasma albumin/globulin mass ratioOrdered By: Vinay Bunting on 46-01-1288Zvgscov/Globulin [Mass ratio]1.8 {ratio}Normal [facility] HospitalComment on above:Order Comment: A1C IS NOT DUE UNTIL OCTOBER.Performed By: #### MG, CMP, CBC, LIPID #### [facility] [address] [place] [address] USAAlbumin/Globulin [Mass ratio]Serum or plasma albumin/globulin mass ratioPremier Health Upper Valley Medical Centererum or plasma anion gap determinationOrdered By: Vinay Matta on 56-11-8078Xiwvn gap [Moles/Vol]11.8 mmol/LNormal6.0-15.0[facility] HospitalComment on above:Order Comment: A1C IS NOT DUE UNTIL OCTOBER.Performed By: #### MG, CMP, CBC, LIPID #### [facility] [address] [place] [address] USAAnion gap [Moles/Vol]Serum or plasma anion gap determination6.0-15.0[facility] Centererum or plasma high density lipoprotein (HDL) cholesterol measurementOrdered By: Vinay Matta on 57-57-0872Ggegvawvlze in HDL [Mass/Vol]41 mg/oJPmsmlq72-01HywuigdfnMercy Health St. Charles HospitalComment on above:HDL CHOL ATP-III CLASSIFICATION Cardiovascular RiskHDL > or equal to 60 mg/dL LOWHDL < 40 mg/dL HIGHOrder Comment: A1C IS NOT DUE UNTIL OCTOBER.Result Comment: HDL CHOL ATP-III CLASSIFICATION Cardiovascular Risk HDL > or equal to 60 mg/dL LOW HDL < 40 mg/dL HIGHPerformed By: #### MG, CMP, CBC, LIPID #### [facility] [address] [place] [address] USASerum or plasma total cholesterol/high density lipoprotein (HDL) cholesterol mass ratOrdered By: Vinay Matta on 09-19-2024 Cholesterol.total/Cholesterol in HDL [Mass ratio]3.2 {ratio}Normal<5.0[facility] Charles HospitalComment on above:Order Comment: A1C IS NOT DUE UNTIL OCTOBER.Result Comment: PERFORMED BY: [facility] [address] [place] [address] PATHOLOGIST [employer] CON[employer]YOR OPERATOR THERESA MULLER M.D.Performed By: #### MG, CMP, CBC, LIPID #### [facility] [address] [place] [address] USACholesterol.total/Cholesterol in HDL [Mass ratio]Serum or plasma total cholesterol/high density lipoprotein (HDL) cholesterol mass rat<5.0 [facility] Centerodium [Moles/volume] in Serum or PlasmaOrdered By: Vinay Bunting on 22-99-1943Xxlznr [Moles/Vol]139 mmol/AWkiffz876-[address] [facility] HospitalComment on above:Order Comment: A1C IS NOT DUE UNTIL OCTOBER.Performed By: #### MG, CMP, CBC, LIPID #### [facility] [address] [place] [address] USASodium [Moles/Vol]Sodium [Moles/volume] in Serum or Plasma 136-145[facility] Charles HospitalTriglyceride [Mass/volume] in Serum or PlasmaOrdered By: Vinay Bunting on 54-03-8379Pfyrigzkepka [Mass/Vol]151 mg/dL High0-149[facility] Charles HospitalComment on above:TRIG ATP III CLASSIFICATIONTRIG less than 150 mg/dL NormalTRIG 150-199 mg/dL Borderline highTRIG 200-500 mg/dL High TRIG greater than 500 mg/dL Very highStandard traceable to the Center for Disease Conrtrol and Prevention (CDC) test method. Triglyceride [Mass/Vol]Triglyceride [Mass/volume] in Serum or PlasmaHigh0-[address] Charles HospitalComment on above:TRIG ATP III CLASSIFICATIONTRIG less than 150 mg/dL NormalTRIG 150-199 mg/dL Borderline highTRIG 200-500 mg/dL High TRIG greater than 500 mg/dL Very highStandard traceable to the Center for Disease Conrtrol and Prevention (CDC) test method. Urea nitrogen [Mass/volume] in Serum or PlasmaOrdered By: Vinay Bunting on 60-36-9200Obgj nitrogen [Mass/Vol]33 mg/dLHigh7-25[facility] HospitalComment on above:Order Comment: A1C IS NOT DUE UNTIL OCTOBER.Performed By: #### MG, CMP, CBC, LIPID #### [facility] [address] [place] [address] USAUrea nitrogen [Mass/Vol]Urea nitrogen [Mass/volume] in Serum or PlasmaLogan Regional Medical Center7-25[facility] Charles HospitalWBC Auto (Bld) [#/Vol] Ordered By: Vinay Bunting on 29-35-0069YHC (Bld) [#/Vol]Leukocytes [#/volume] in Blood by Automated count3.8-11.6FMercy Health St. Rita's Medical CenterAlanine aminotransferase [Enzymatic activity/volume] in Serum or PlasmaOrdered By: Obaydah Daromar on 79-17-3888LCV [Catalytic activity/Vol]17 U/L7-52[facility] HospitalAlbumin [Mass/volume] in Serum or Plasma by Bromocresol green (BCG) dye binding methoOrdered By: Obaydah Daromar on 47-47-7401Uhypmbl BCG dye [Mass/Vol]3.9 g/dL3.5-5.7FMercy Health St. Rita's Medical CenterAlkaline phosphatase [Enzymatic activity/volume] in Serum or PlasmaOrdered By: Obaydah Daromar on 51-07-4843ZIE [Catalytic activity/Vol]122 U/ERira46-781ZoxmffabtMercy Health St. Charles HospitalAspartate aminotransferase [Enzymatic activity/volume] in Serum or PlasmaOrdered By: Obaydah Daromar on 43-05-2956ORX [Catalytic activity/Vol]17 U/I16-70KamncsrfnMercy Health St. Charles HospitalBasophils Auto (Bld) [#/Vol]Ordered By: Obaydah Daromar on 48-79-6457Zowmlwsoe (Bld) [#/Vol]0.0 10*3/uL0.0-0.2FMercy Health St. Rita's Medical CenterBasophils/100 WBC Auto (Bld) Ordered By: Obaydah Daromar on 42-65-4356Ucuovvcat/100 WBC (Bld)0.4 %.[facility] [facility] HospitalBilirubin.total [Mass/volume] in Serum or PlasmaOrdered By: Obaydah Daromar on 21-67-7079Axjrnjroe [Mass/Vol]0.5 mg/dL0.3-1.0[facility] HospitalCalcium [Mass/volume] in Serum or PlasmaOrdered By: Obaydah Daromar on 12-98-9881Wzhfzsr [Mass/Vol]9.2 mg/dL8.6-10.3FMercy Health St. Rita's Medical CenterCarbon dioxide, total [Moles/volume] in Serum or Plasma Ordered By: Obaydah Daromar on 46-45-1227CD8 [Moles/Vol]24.9 mmol/L21.0-31.[address] [facility] HospitalChloride [Moles/volume] in Serum or Plasma Ordered By: Comfort Monteiro on 81-69-2873Ieimvnyy [Moles/Vol]104 mmol/L98-[address] [facility] HospitalCreatinine [Mass/volume] in Serum or Plasma Ordered By: Comfort Ratliffomar on 24-69-6367Htdicfczjm [Mass/Vol]1.55 mg/dLHigh 0.60-1.20[facility] HospitalEosinophils Auto (Bld) [#/Vol]Ordered By: Dianne Gaudencioomar on 90-57-3940Mssezmmzybe (Bld) [#/Vol]0.1 10*3/uL0.0-0.[address] [facility] HospitalEosinophils/100 WBC Auto (Bld)Ordered By: Dianne Gaudencioomar on 51-66-7685Tzhyrddperq/100 WBC (Bld)2.7 %.[facility] HospitalErythrocyte distribution width Auto (RBC) [Ratio]Ordered By: Comfort Ratliffomar on 66-09-6269Ymwxehzkvrg distribution width (RBC) [Ratio]16.3 % High11.9-15.3FMercy Health St. Rita's Medical CenterGlobulin Calc (S) [Mass/Vol] Ordered By: Comfort Monteiro on 60-65-9104Ykhicrku (S) [Mass/Vol]2.4 g/dL [facility] HospitalGlucose Glucometer (BldC) [Mass/Vol]Ordered By: Comfort Ratliffomajosse on 77-83-7613Arulvub [Mass/Vol]239 mg/dLMercy Health St. Charles HospitalComment on above:Random Glucose Reference Range is dependent on time and content of last meal. Glucose of more than 200 mg/dL in a nonstressed, ambulatory subject supports the diagnosis of Diabetes Mellitus.Glucose [Mass/volume] in Serum or PlasmaOrdered By: Comfort Ratliffomar on 63-80-5944Yiqwgsj [Mass/Vol]142 mg/hJVjzs04-300HlqhtrqyxMercy Health St. Charles HospitalComment on above: Delta: 334 on 07/21/24-1025ADA recommended reference rangeRandom Glucose Reference Range is dependent on time and content of last meal. Glucose of more than 200 mg/dL in a nonstressed, ambulatory subject supports the diagnosis of Diabetes Mellitus.Hematocrit Auto (Bld) [Volume fraction]Ordered By: Comfort Monteiro on 81-32-6669Iuumhkrqlj (Bld) [Volume fraction]32.0 %Low34.0-46.[address] [facility] HospitalHemoglobin [Mass/volume] in BloodOrdered By: Comfort Ontiverosr on 68-02-2295Aolbkswsfe (Bld) [Mass/Vol]11.3 g/dLLow11.8-15.[address] [facility] HospitalLeukocytes [#/volume] corrected for nucleated erythrocytes in Blood by Automated counOrdered By: Comfort Monteiro on 07-22-2024 WBC corrected for nucl RBC Auto (Bld) [#/Vol]5.4 10*3/uL3.8-11.6FMercy Health St. Rita's Medical CenterLymphocytes Auto (Bld) [#/Vol]Ordered By: Comfort Ratliffomar on 33-49-3332Xlocwedmhbw (Bld) [#/Vol]1.7 10*3/uL1.00-4.8[facility] HospitalLymphocytes/100 WBC Auto (Bld)Ordered By: Obalissa Ratliffomar on 66-18-5762Egepcszxglb/100 WBC (Bld)31.4 %.[facility] ClinicH Auto (RBC) [Entitic mass]Ordered By: Comfort Ratliffomajosse on 26-83-7914WUN (RBC) [Entitic mass]30.3 pg24.7-34.3FMercy Health St. Rita's Medical CenterMCHC Auto (RBC) [Mass/Vol]Ordered By: Comfort Ratliffomar on 52-31-6752PLNI (RBC) [Mass/Vol]35.3 g/tJSwsa30.0-35.0[facility] HospitalMCV Auto (RBC) [Entitic vol] Ordered By: Comfort Ratliffomar on 60-90-3476CGY (RBC) [Entitic vol]85.8 jA18-[address] [facility] HospitalMonocytes Auto (Bld) [#/Vol]Ordered By: Comfort Ratliffomar on 06-72-3386Ulspkqyvw (Bld) [#/Vol]0.3 10*3/uL0.0-0.8[facility] HospitalMonocytes/100 WBC Auto (Bld)Ordered By: Comfort Ratliffomar on 67-13-7335Rqntihzps/100 WBC (Bld)5.5 %.[facility] Neutrophils Auto (Bld) [#/Vol]Ordered By: Obalissa Ratliffomar on 07-22-2024 Neutrophils (Bld) [#/Vol]3.3 10*3/uL1.8-7.7FMercy Health St. Rita's [facility] Center Neutrophils/100 WBC Auto (Bld)Ordered By: Obalissa Ratliffomar on 07-22-2024 Neutrophils/100 WBC (Bld)60.0 %.[facility] HospitalNo Panel InformationOrdered By: Comfort Monteiro on 07-85-1738Rxzillxws GFR (CKD-EPI) 34.723 mL/MinMercy Health St. Charles HospitalPharmacy Creatinine Clearance (Chem35.10[facility] HospitalNucleated erythrocytes [Presence] in Blood by Automated countOrdered By: Comfort Monteiro on 78-28-8193Ulnbanwup RBC Auto Ql (Bld)0.1 /100{WBC}0-0.5FMercy Health St. Rita's Medical CenterPlatelet mean volume Auto (Bld) [Entitic vol]Ordered By: Comfort Monteiro on 74-36-8033Eumvlbtg mean volume (Bld) [Entitic vol]7.3 fL6.3-10.7FMercy Health St. Rita's Medical Center Platelets Auto (Bld) [#/Vol]Ordered By: Comfort Ratliffomar on 05-64-7666Otdafdugt (Bld) [#/Vol]141 10*3/wDIpc138-766OhqrhxnauMercy Health St. Charles HospitalPotassium [Moles/volume] in Serum or PlasmaOrdered By: Comfort Ontiverosr on 07-22-2024 Potassium [Moles/Vol]4.0 mmol/L3.5-5.1FMercy Health St. Rita's Medical CenterProtein [Mass/volume] in Serum or PlasmaOrdered By: Diannedulce maria Ratliffomar on 56-56-2789Zruvlcm [Mass/Vol]6.3 g/dLLow6.4-8.9[facility] HospitalRBC Auto (Bld) [#/Vol]Ordered By: Obberyldadulce maria Daromar on 71-62-3969RKY (Bld) [#/Vol]3.73 10*6/uL 3.60-5.00[facility] Centererum or plasma albumin/globulin mass ratioOrdered By: Obberyldadulce maria Daromar on 59-82-8226Wcvikzw/Globulin [Mass ratio]1.6 {ratio}[facility] Centererum or plasma anion gap determination Ordered By: Obberyldadulce maria Ratliffomar on 94-85-4673Ilidm gap [Moles/Vol]16.1 mmol/LHigh 6.0-15.0[facility] Centerodium [Moles/volume] in Serum or PlasmaOrdered By: Obberyldadulce maria Daromar on 31-73-4905Biucuh [Moles/Vol]141 mmol/L 136-145[facility] HospitalUrea nitrogen [Mass/volume] in Serum or PlasmaOrdered By: Obberyldadulce maria Daromar on 70-40-0630Wxzb nitrogen [Mass/Vol]37 mg/dL High7-25[facility] HospitalWBC Auto (Bld) [#/Vol]Ordered By: Obberyldadulce maria Ratliffomar on 53-85-9749TEL (Bld) [#/Vol]5.4 10*3/uL3.8-11.6FMercy Health St. Rita's Medical CenterActivated partial thromboplastin time (aPTT) in platelet poor plasma by coagulation aOrdered By: Bakari Barboza on 23-00-3128zJIH Coag (PPP) [Time]35.2 s25.1-36.5FMercy Health St. Rita's Medical CenterComment on above:A hematocrit value greater than 55% may lead to inaccurate results in coagulation testing. Patientshaving hematocrit values >55% require a special collection tube for coagulation studies. Please contact the laboratory at [phone] for redraw instructions.Alanine aminotransferase [Enzymatic activity/volume] in Serum or PlasmaOrdered By: Bakari Barboza on 43-78-8244DUC [Catalytic activity/Vol] 18 U/L7-52[facility] HospitalAlbumin [Mass/volume] in Serum or Plasma by Bromocresol green (BCG) dye binding methoOrdered By: Bakari Barboza on 87-85-1691Jjpzgti BCG dye [Mass/Vol]4.1 g/dL3.5-5.7FMercy Health St. Rita's Medical CenterAlkaline phosphatase [Enzymatic activity/volume] in Serum or PlasmaOrdered By: Bakari Barboza on 47-79-9025QYG [Catalytic activity/Vol]147 U/GNjvf92-[address] [facility] HospitalAspartate aminotransferase [Enzymatic activity/volume] in Serum or PlasmaOrdered By: Bakari Barboza on 31-98-1995VOH [Catalytic activity/Vol]17 U/K47-32WugxzekldMercy Health St. Charles HospitalBasophils Auto (Bld) [#/Vol]Ordered By: Bakari Barboza on 17-08-2081Fjocavfrw (Bld) [#/Vol] 0.0 10*3/uL0.0-0.2FMercy Health St. Rita's Medical CenterBasophils/100 WBC Auto (Bld) Ordered By: Bakari Barboza on 91-30-9819Hlqdkejjt/100 WBC (Bld)0.7 %.[facility] HospitalBilirubin Test strip Ql (U)Ordered By: Bakari Barboza on 72-24-3852Njzoyghbs Ql (U)NegativeNegativeMercy Health St. Charles Hospital Bilirubin.direct [Mass/volume] in Serum or PlasmaOrdered By: Bakari Barboza on 60-27-3798Knhhujyvv.direct [Mass/Vol]0.10 mg/dL0.03-0.18FMercy Health St. Rita's Medical CenterBilirubin.total [Mass/volume] in Serum or PlasmaOrdered By: Bakari Barboza on 62-70-8833Dxqomsxet [Mass/Vol]0.4 mg/dL0.3-1.0[facility] HospitalCOVID CepheidOrdered By: Comfort Monteiro on 71-86-7753LICK-CoV-2 (COVID-19) Ab IA QlNegativeNegativeMercy Health St. Charles HospitalComment on above:This is a duplicate Cepheid Xpert Xpress CoV-2/Flu/RSV Plus RNA by RT-PCR result to be used for statistical tracking purpose only.SARS-CoV-2 (COVID-19) RNA DIPESH+probe Ql (Unsp spec)[facility] HospitalCalcium [Mass/volume] in Serum or PlasmaOrdered By: Bakari Barboza on 99-58-2023Cznvhws [Mass/Vol]9.3 mg/dL8.6-10.3FMercy Health St. Rita's Medical CenterCarbon dioxide, total [Moles/volume] in Serum or PlasmaOrdered By: Bakari Barboza on 69-39-8230VN7 [Moles/Vol]26.3 mmol/L21.0-31.0[facility] HospitalChloride [Moles/volume] in Serum or PlasmaOrdered By: Bakari Barboza on 78-73-8066Afhuwscp [Moles/Vol]103 mmol/O25-705IstzhvfmkMercy Health St. Charles HospitalCholesterol [Mass/volume] in Serum or PlasmaOrdered By: Comfort Monteiro on 07-21-2024 Cholesterol [Mass/Vol]112 mg/kFNpn842-678JmupjwowqMercy Health St. Charles Hospital Comment on above:Chol less than 200 mg/dl low riskChol 201-239 mg/dl borderline riskChol 240 mg/dl and greater high riskCholesterol in LDL Calc [Mass/Vol] Ordered By: Comfort Monteiro on 64-98-0652Vuuhpaseyaw in LDL [Mass/Vol]46 mg/dL 0-100[facility] HospitalComment on above:LDL ATP III CLASSIFICATIONLDL less than 100 mg/dL OptimalLDL 100-129 mg/dL Near or above enkbusnIRZ273-267 mg/dL Borderline highLDL 160-189 mg/dL HighLDL greater than 189 mg/dL Very highCholesterol in VLDL Calc [Mass/Vol]Ordered By: Comfort Monteiro on 28-92-1519Svpdxmbxdby in VLDL [Mass/Vol]26 mg/dLMercy Health St. Charles HospitalColor Auto (U)Ordered By: Bakari Barboza on 24-08-7652Zvyxn (U) Light-yellowYellowMercy Health St. Charles HospitalCreatine kinase [Enzymatic activity/volume] in Serum or PlasmaOrdered By: Bakari Barboza on 45-51-7836OC [Catalytic activity/Vol]56 U/G02-894GyaopkcqgMercy Health St. Charles HospitalCreatinine [Mass/volume] in Serum or PlasmaOrdered By: Bakari Barboza on 71-97-6196Ojzhimbbdo [Mass/Vol]1.64 mg/dLHigh0.60-1.20[facility] HospitalEosinophils Auto (Bld) [#/Vol]Ordered By: Bakari Barboza on 34-74-5284Cqgojecbbri (Bld) [#/Vol] 0.1 10*3/uL0.0-0.45[facility] HospitalEosinophils/100 WBC Auto (Bld)Ordered By: Bakari Barboza on 89-95-6738Iujbetaqxfl/100 WBC (Bld)2.5 %. [facility] HospitalErythrocyte distribution width Auto (RBC) [Ratio]Ordered By: Bakari Barboza on 54-42-3761Mzdrhvlsvvn distribution width (RBC) [Ratio]16.4 %High11.9-15.3FMercy Health St. Rita's Medical CenterGlobulin Calc (S) [Mass/Vol]Ordered By: Bakari Barboza on 99-85-6395Kdipgkkr (S) [Mass/Vol]2.5 g/dL [facility] HospitalGlucose [Mass/volume] in Serum or PlasmaOrdered By: Bakari Barboza on 71-80-3073Nqtylki [Mass/Vol]334 mg/cMBkpp22-325VzzzrtkhiMercy Health St. Charles HospitalComment on above:ADA recommended reference rangeRandom Glucose Reference Range is dependent on time and content of last meal. Glucose of more than 200 mg/dL in a nonstressed, ambulatory subject supports the diagnosisof Diabetes Mellitus.Glucose [Mass/volume] in Urine by Test strip Ordered By: Bakari Barboza on 35-79-0304Sexuzqp Test strip (U) [Mass/Vol]>=1000 mg/dLHighNormalMercy Health St. Charles HospitalGlucose mean value [Mass/volume] in Blood Estimated from glycated hemoglobinOrdered By: Comfort Monteiro on 54-58-7232Fevacbi glucose Estimated from glycated hemoglobin (Bld) [Mass/Vol]174 mg/dLMercy Health St. Charles HospitalHematocrit Auto (Bld) [Volume fraction] Ordered By: Bakari Barboza on 08-26-4946Jnfoncvtfu (Bld) [Volume fraction]31.7 %Low 34.0-46.4FMercy Health St. Rita's Medical CenterHemoglobin A1c percentageOrdered By: Comfort Monteiro on 12-78-7190XlO1a (Bld) [Mass fraction]7.7 %High4.3-5.[address] [facility] HospitalComment on above:Increased risk for diabetes: 5.7 - 6.4diabetes: >6.4glycemic control for adults with diabetes: <7.0 Hemoglobin Test strip Ql (U)Ordered By: Bakari Barboza on 16-83-9342Ywsdskzhea Ql (U)NegativeNegProMedica Fostoria Community HospitalHemoglobin [Mass/volume] in BloodOrdered By: Bakari Barboza on 36-39-9393Gremiagfln (Bld) [Mass/Vol]11.0 g/dL Low11.8-15.4FMercy Health St. Rita's Medical CenterINR in Platelet poor plasma by Coagulation assayOrdered By: Bakari Barboza on 12-94-9525EED Coag (PPP) [Relative time]1.1 {INR}[facility] HospitalComment on above:INR Therapeutic Range A) Pre- and [...] strip Ql (U)Ordered By: Bakari Barboza on 75-54-1069Syydfra Ql (U)Negative NegativeMercy Health St. Charles HospitalLeukocyte esterase [Presence] in Urine by Test stripOrdered By: Bakari Barboza on 06-93-2607Rmaibueib esterase Test strip Ql (U)NegativeNegativeMercy Health St. Charles HospitalLeukocytes [#/volume] corrected for nucleated erythrocytes in Blood by Automated counOrdered By: Bakari Barboza on 61-43-5621ZGU corrected for nucl RBC Auto (Bld) [#/Vol]4.8 10*3/uL 3.8-11.6FMercy Health St. Rita's Medical CenterLymphocytes Auto (Bld) [#/Vol]Ordered By: Bakari Barboza on 48-48-8345Uagsjqtrwlb (Bld) [#/Vol]1.2 10*3/uL1.00-4.[address] [facility] HospitalLymphocytes/100 WBC Auto (Bld)Ordered By: Bakari Barboza on 01-56-3245Abxuwgixaob/100 WBC (Bld)24.6 %.[facility] Auto (RBC) [Entitic mass]Ordered By: Bakari Barboza on 56-58-6528UUW (RBC) [Entitic mass]30.2 pg24.7-34.3FOhio State Health SystemHC Auto (RBC) [Mass/Vol]Ordered By: Bakari Barboza on 63-13-6657NFFC (RBC) [Mass/Vol]34.8 g/dL32.0-35.0[facility]opathic ClinicV Auto (RBC) [Entitic vol] Ordered By: Bakari Barboza on 99-29-8126JAA (RBC) [Entitic vol]86.7 wI63-[address] [facility] HospitalMagnesium [Mass/volume] in Serum or Plasma Ordered By: Ottoniel Bland on 86-02-9383Qyfzbcuas [Mass/Vol]1.7 mg/dLLow1.9-2.[address] [facility] HospitalMonocyte distribution width [Entitic volume] in Blood by AutomatedOrdered By: Bakari Barboza on 94-65-8157Lnxcpnvk distribution width Auto (Bld) [Entitic vol]20.33 %High0.00-20.00[facility] HospitalComment on above:For adults in ED, MDW > 20.0 may be associated with a higher risk of sepsis during the first 12 hrs of hospital admissionMonocytes Auto (Bld) [#/Vol]Ordered By: Bakari Barboza on 30-82-2826Vurycecpm (Bld) [#/Vol] 0.2 10*3/uL0.0-0.8[facility] HospitalMonocytes/100 WBC Auto (Bld) Ordered By: Bakari Barboza on 52-65-7253Vavqqhmtw/100 WBC (Bld)4.0 %.[facility] HospitalMuscle specific receptor tyrosine kinase Ab [Units/volume] in Serum by ImmunoassayOrdered By: Ottoniel Bland on 07-21-2024 Muscle specific receptor tyrosine kinase Ab IA Qn (S)<1.0 U/mL.[facility] HospitalComment on above:Reference Range: Negative: <1.0 Positive: 1.0 [...] J Autoimmunity 2014;52:90-100.2. Fred MG etal. PNAS 2013;110(51);06610-64250.3. Enrique E et al. Neurology 2006;67:505-507.This test was developed and its performance characteristicsdetermined by [employer]. It has not been cleared or approvedby the Food and Drug Administration.Performed at: [facility] [address] [id number] Director: Trae Olivarez MD, Phone: [phone] peptide B [Mass/Vol]Ordered By: Bakari Barboza on 07-21-2024 Natriuretic peptide B (Bld) [Mass/Vol]42.0 pg/mL5-100[facility] HospitalNeutrophils Auto (Bld) [#/Vol]Ordered By: Bakari Barboza on 07-21-2024 Neutrophils (Bld) [#/Vol]3.3 10*3/uL1.8-7.7FMercy Health St. Rita's [facility] Center Neutrophils/100 WBC Auto (Bld)Ordered By: Bakari Barboza on 07-21-2024 Neutrophils/100 WBC (Bld)68.2 %.[facility] HospitalNitrite Test strip Ql (U)Ordered By: Bakari Barboza on 72-33-7024Oidiavt Ql (U)NegativeNegative [facility] HospitalNo Panel InformationOrdered By: Ottoniel Bland on 62-36-5533Rlcmbtoepybpc Receptor Binding Ab<0.03 nmol/L0.00-0.24[facility] HospitalComment on above:Negative: 0.00 - 0.24 Borderline: 0.25 - 0.40 Positive: >0.40Performed at: [facility] [id number] Director: Keith Quijano MD, Phone: [phone] Panel InformationOrdered By: Bakari Barboza on 29-19-7900Tgvnleibh GFR (CKD-EPI) 32.449 mL/MinMercy Health St. Charles HospitalPharmacy Creatinine Clearance (Chem33.01[facility] HospitalNucleated erythrocytes [Presence] in Blood by Automated countOrdered By: Bakari Barboza on 28-94-6227Afryenjnh RBC Auto Ql (Bld)0.0 /100{WBC}0-0.5FMercy Health St. Rita's Medical CenterPlatelet mean volume Auto (Bld) [Entitic vol]Ordered By: Bakari Barboza on 74-52-2316Dlfqmftu mean volume (Bld) [Entitic vol]7.1 fL6.3-10.7FMercy Health St. Rita's Medical Center Platelets Auto (Bld) [#/Vol]Ordered By: Bakari Barboza on 88-82-4333Rtsxjpgft (Bld) [#/Vol]141 10*3/vTXql139-011MqteevnkmMercy Health St. Charles HospitalPotassium [Moles/volume] in Serum or PlasmaOrdered By: Bakari Barboza on 63-02-9145Psklftrcp [Moles/Vol]4.5 mmol/L3.5-5.1FMercy Health St. Rita's Medical CenterProtein Test strip (U) [Mass/Vol]Ordered By: Bakari Barboza on 17-86-0847Motzain (U) [Mass/Vol] NegativeNegativeMercy Health St. Charles HospitalProtein [Mass/volume] in Serum or PlasmaOrdered By: Bakari Barboza on 11-13-9830Yiismie [Mass/Vol]6.6 g/dL6.4-8.[address] [facility] HospitalProthrombin time (PT)Ordered By: Bakari Barboza on 71-68-4426DG Coag (PPP) [Time]12.3 s9.0-12.9[facility] Comment on above:A hematocrit value greater than 55% may lead to inaccurate results in coagulation testing. Patientshaving hematocrit values >55% require a special collection tube for coagulation studies. Please contact the laboratory at [phone] for redraw instructions.RBC Auto (Bld) [#/Vol]Ordered By: Bakari Barboza on 52-36-0950WPW (Bld) [#/Vol]3.66 10*6/uL3.60-5.00[facility] Centererum acetylcholine receptor blocking antibody/total acetylcholine antibody ratioOrdered By: Ottoniel Bland on 32-93-0848Vdygwfdkamnqt receptor blocking Ab/Acetylcholine Ab.total (S) [Molar fraction]19 %0-25[facility] HospitalComment on above:This test was developed and its performance characteristicsdetermined by [employer]. It has not been cleared orapproved by the Food and Drug Administration. Negative: 0 - 25 Borderline: 26 - 30 Positive: >30Performed at: [address] [id number] Director: Keith Quijano MD, Phone: [phone] or plasma albumin/globulin mass ratioOrdered By: Bakari Barboza on 07-21-2024 Albumin/Globulin [Mass ratio]1.6 {ratio}[facility] Centererum or plasma anion gap determinationOrdered By: Bakari Barboza on 60-04-7326Wqvpg gap [Moles/Vol]13.2 mmol/L6.0-15.0[facility] Centererum or plasma high density lipoprotein (HDL) cholesterol measurementOrdered By: Comfort Monteiro on 92-01-1094Awnckfswtak in HDL [Mass/Vol]40 mg/sC00-64DugxydtqzMercy Health St. Charles HospitalComment on above:HDL CHOL ATP-III CLASSIFICATION Cardiovascular RiskHDL > or equal to 60 mg/dL LOWHDL < 40 mg/dL HIGHSerum or plasma non-glucuronidated bilirubin measurement (mass/volume)Ordered By: Bakari Barboza on 63-72-1692Jolyvmsoq.indirect [Mass/Vol]0.3 mg/dLPremier Health Upper Valley Medical Centererum or plasma total cholesterol/high density lipoprotein (HDL) cholesterol mass ratOrdered By: Cofmort Monteiro on 07-21-2024 Cholesterol.total/Cholesterol in HDL [Mass ratio]2.8 {ratio}<5.0[facility] Centerodium [Moles/volume] in Serum or PlasmaOrdered By: Bakari Barboza on 03-49-3804Sbcwro [Moles/Vol]138 mmol/V051-034VueprnjhrPremier Health Upper Valley Medical Centerpecific gravity of Urine by RefractometryOrdered By: Bakari Barboza on 33-52-7485Xlcmwfzu gravity Refractometry (U) [Rel density]1.0181.001-1.[address] [facility] HospitalComment on above:Rechecked by refractometer Triglyceride [Mass/volume] in Serum or PlasmaOrdered By: Comfort Monteiro on 69-46-8200Awkaolwcjopl [Mass/Vol]132 mg/dL0-149[facility] Comment on above:TRIG ATP III CLASSIFICATIONTRIG less than 150 mg/dL NormalTRIG 150-199 mg/dL Borderline highTRIG 200-500 mg/dL High TRIG greater than 500 mg/dL Very highStandard traceable to the Center for Disease Conrtrol and Prevention (CDC) test method.Troponin I.cardiac [Mass/volume] in Serum or Plasma by Detection limit <= 0.01 ng/Ordered By: Bakari Barboza on 14-76-0604Mwjjvgww I.cardiac DL <= 0.01 ng/mL [Mass/Vol]4.4 pg/mL0.0-15.0[facility] HospitalUrea nitrogen [Mass/volume] in Serum or PlasmaOrdered By: Bakari Barboza on 73-84-4741Qawq nitrogen [Mass/Vol]43 mg/dLHigh7-25[facility] HospitalUrine appearanceOrdered By: Bakari Barboza on 61-84-5379Zrnlmjxobn (U)Clear ClearMercy Health St. Charles HospitalUrobilinogen Test strip (U) [Mass/Vol] Ordered By: Bakari Barboza on 68-77-9678Hokeioihaqar (U) [Mass/Vol]Normal mg/dL NormalMercy Health St. Charles HospitalVaricella zoster virus DNA [Presence] in Cerebral spinal fluid by DIPESH with probe deteOrdered By: Ottoniel Bland on 01-63-7077IND DNA DIPESH+probe Ql (CSF)8 %0-45[facility] Comment on above:This test was developed and its performance characteristicsdetermined by [employer]. It has not been cleared orapproved by the Food and Drug Administration. Interpretive Information: Negative: 0 - 45% Po sitive: > 45%No single value for AChR-modulating antibody shouldbe used as a sole basis for diagnosis or responseto therapy.Performed at: [address] [id number] Director: Keith Quijano MD, Phone: [phone] Auto (Bld) [#/Vol]Ordered By: Bakari Barboza on 37-13-3481AET (Bld) [#/Vol]4.8 10*3/uL3.8-11.6FMercy Health St. Rita's Medical Center pH Test strip (U)Ordered By: Bakari Barboza on 07-44-6950tO (U)6.0 [pH]5.0-9.[address] [facility] HospitalAlanine aminotransferase [Enzymatic activity/volume] in Serum or PlasmaOrdered By: Vinay Matta on 93-94-5950BIN [Catalytic activity/Vol]18 U/L7-52[facility] HospitalAlbumin [Mass/volume] in Serum or Plasma by Bromocresol green (BCG) dye binding metho Ordered By: Vinay Matta on 87-22-7002Aveijbv BCG dye [Mass/Vol]4.0 g/dL 3.5-5.7FMercy Health St. Rita's Medical CenterAlkaline phosphatase [Enzymatic activity/volume] in Serum or PlasmaOrdered By: Vinay Matta on 18-79-3725PTC [Catalytic activity/Vol]104 U/M13-997WpjbxolaiMercy Health St. Charles HospitalAspartate aminotransferase [Enzymatic activity/volume] in Serum or PlasmaOrdered By: Vinay Bunting on 20-41-5635LSZ [Catalytic activity/Vol]21 U/T32-65IbzgrlkmvMercy Health St. Charles HospitalBasophils Auto (Bld) [#/Vol]Ordered By: Vinay Bunting on 19-22-0200Ezmlprvwa (Bld) [#/Vol]0.0 10*3/uL0.0-0.2FMercy Health St. Rita's Medical CenterBasophils/100 WBC Auto (Bld)Ordered By: Vinay Bunting on 05-24-2024 Basophils/100 WBC (Bld)0.2 [address] [address] [facility] HospitalBilirubin.total [Mass/volume] in Serum or PlasmaOrdered By: Vinay Bunting on 05-24-2024 Bilirubin [Mass/Vol]0.5 mg/dL0.3-1.0[facility] HospitalCalcium [Mass/volume] in Serum or PlasmaOrdered By: Vinay Bunting on 50-56-4326Qxhmgir [Mass/Vol]8.6 mg/dL8.6-10.3FMercy Health St. Rita's Medical CenterCarbon dioxide, total [Moles/volume] in Serum or PlasmaOrdered By: Vinay Bunting on 05-24-2024 CO2 [Moles/Vol]29.0 mmol/L21.0-31.0[facility] HospitalChloride [Moles/volume] in Serum or PlasmaOrdered By: Vinay Bunting on 05-24-2024 Chloride [Moles/Vol]101 mmol/B72-224TtttnceagMercy Health St. Charles HospitalCholesterol [Mass/volume] in Serum or PlasmaOrdered By: Vinay Bunting on 05-24-2024 Cholesterol [Mass/Vol]107 mg/eQElg553-048MbnwvyfnpMercy Health St. Charles Hospital Comment on above:Chol less than 200 mg/dl low riskChol 201-239 mg/dl borderline riskChol 240 mg/dl and greater high riskCholesterol in LDL Calc [Mass/Vol] Ordered By: Vinay Bunting on 32-88-9724Gadmutyxcag in LDL [Mass/Vol]46 mg/dL 0-100[facility] HospitalComment on above:LDL ATP III CLASSIFICATIONLDL less than 100 mg/dL OptimalLDL 100-129 mg/dL Near or above dqwxlxhRPO796-427 mg/dL Borderline highLDL 160-189 mg/dL HighLDL greater than 189 mg/dL Very highCholesterol in VLDL Calc [Mass/Vol]Ordered By: Vinay Matta on 15-43-4692Oboccvgoxbq in VLDL [Mass/Vol]21 mg/dLMercy Health St. Charles HospitalCreatinine [Mass/volume] in Serum or PlasmaOrdered By: Vinay Matta on 86-74-9201Hygasncmho [Mass/Vol]1.26 mg/dLHigh0.60-1.20[facility] HospitalEosinophils Auto (Bld) [#/Vol]Ordered By: Vinay Matta on 05-24-2024 Eosinophils (Bld) [#/Vol]0.2 10*3/uL0.0-0.45[facility] Eosinophils/100 WBC Auto (Bld)Ordered By: Vinay Matta on 05-24-2024 Eosinophils/100 WBC (Bld)2.6 %.[facility] HospitalErythrocyte distribution width Auto (RBC) [Ratio]Ordered By: Vinay Matta on 05-24-2024 Erythrocyte distribution width (RBC) [Ratio]16.8 %High11.9-15.3FMercy Health St. Rita's Medical CenterGlobulin Calc (S) [Mass/Vol]Ordered By: Vinay Matta on 07-58-9567Eutoljjf (S) [Mass/Vol]2.2 g/dLMercy Health St. Charles Hospital Glucose [Mass/volume] in Serum or PlasmaOrdered By: Vinay Matta on 05-24-2024 Glucose [Mass/Vol]133 mg/nNWnop29-922FqjpxwfimMercy Health St. Charles HospitalComment on above:ADA recommended reference rangeRandom Glucose Reference Range is dependent on time and content of last meal. Glucose of more than 200 mg/dL in a nonstressed, ambulatory subject supports the diagnosisof Diabetes Mellitus. Glucose mean value [Mass/volume] in Blood Estimated from glycated hemoglobin Ordered By: Vinay Matta on 23-91-3226Rvjqawg glucose Estimated from glycated hemoglobin (Bld) [Mass/Vol]151 mg/dLMercy Health St. Charles HospitalHematocrit Auto (Bld) [Volume fraction]Ordered By: Vinay Bunting on 84-34-1889Mtplsygmks (Bld) [Volume fraction]32.1 %Low34.0-46.4FMercy Health St. Rita's Medical Center Hemoglobin A1c percentageOrdered By: Vinay Bunting on 59-71-6106XqI2v (Bld) [Mass fraction]6.9 %High4.3-5.6FMercy Health St. Rita's Medical CenterComment on above:Increased risk for diabetes: 5.7 - 6.4diabetes: >6.4glycemic control for adults with diabetes: <7.0Hemoglobin [Mass/volume] in BloodOrdered By: Vinay Bunting on 50-47-4420Nopjarwqyp (Bld) [Mass/Vol]10.9 g/dLLow11.8-15.4FMercy Health St. Rita's Medical CenterLeukocytes [#/volume] corrected for nucleated erythrocytes in Blood by Automated counOrdered By: Vinay Bunting on 05-24-2024 WBC corrected for nucl RBC Auto (Bld) [#/Vol]5.9 10*3/uL3.8-11.6FMercy Health St. Rita's Medical CenterLymphocytes Auto (Bld) [#/Vol]Ordered By: Vinay Bunting on 80-82-5693Yoiesbinmkz (Bld) [#/Vol]1.1 10*3/uL1.00-4.8[facility] HospitalLymphocytes/100 WBC Auto (Bld)Ordered By: Vinay Bunting on 17-54-2298Dacsdfidzar/100 WBC (Bld)17.9 %.[facility] ClinicH Auto (RBC) [Entitic mass]Ordered By: Vinay Bunting on 86-41-6978GHW (RBC) [Entitic mass]29.9 pg24.7-34.3FMercy Health St. Rita's Medical CenterMCHC Auto (RBC) [Mass/Vol]Ordered By: Vinay Bunting on 42-11-4472FCEJ (RBC) [Mass/Vol]34.0 g/dL 32.0-35.0[facility] HospitalMCV Auto (RBC) [Entitic vol]Ordered By: Vinay Bunting on 84-63-0379HJI (RBC) [Entitic vol]88.1 yY29-533CpsvsxwexMercy Health St. Charles HospitalMagnesium [Mass/volume] in Serum or PlasmaOrdered By: Vinay Bunting on 17-97-1348Sgokuwmgf [Mass/Vol]1.0 mg/dLLow1.9-2.7FMercy Health St. Rita's Medical CenterMonocytes Auto (Bld) [#/Vol]Ordered By: Vinay Bunting on 76-63-5844Rkssuqiai (Bld) [#/Vol]0.3 10*3/uL0.0-0.8[facility] HospitalMonocytes/100 WBC Auto (Bld)Ordered By: Vinay Bunting on 05-24-2024 Monocytes/100 WBC (Bld)5.4 %.[facility] HospitalNeutrophils Auto (Bld) [#/Vol]Ordered By: Vinay Bunting on 52-39-3945Izjijljxwnp (Bld) [#/Vol] 4.4 10*3/uL1.8-7.7FMercy Health St. Rita's Medical CenterNeutrophils/100 WBC Auto (Bld)Ordered By: Vinay Bunting on 95-56-8575Bwacieacrmm/100 WBC (Bld)73.9 %. [facility] HospitalNo Panel InformationOrdered By: Vinay Bunting on 12-20-3139Dnzemkkhn GFR (CKD-EPI)44.522 mL/MinMercy Health St. Charles HospitalPharmacy Creatinine Clearance (ChemN/AFMercy Health St. [facility]'s Medical Center Nucleated erythrocytes [Presence] in Blood by Automated countOrdered By: Vinay Bunting on 01-12-9901Oxmpbboqh RBC Auto Ql (Bld)0.1 /100{WBC}0-0.5FMercy Health St. Rita's Medical CenterPlatelet mean volume Auto (Bld) [Entitic vol]Ordered By: Vinay Bunting on 26-87-6839Oeitgqxq mean volume (Bld) [Entitic vol]7.3 fL 6.3-10.7FMercy Health St. Rita's Medical CenterPlatelets Auto (Bld) [#/Vol]Ordered By: Vinay Bunting on 14-81-8495Bletyivcx (Bld) [#/Vol]156 10*3/qE710-136NjsylwbttMercy Health St. Charles HospitalPotassium [Moles/volume] in Serum or PlasmaOrdered By: Vinay Bunting on 50-78-7132Etodzktxb [Moles/Vol]4.7 mmol/L3.5-5.1FMercy Health St. Rita's Medical CenterProtein [Mass/volume] in Serum or PlasmaOrdered By: Vinay Bunting on 12-14-8390Qcmtvcw [Mass/Vol]6.2 g/dLLow6.4-8.9[facility] HospitalRBC Auto (Bld) [#/Vol]Ordered By: Vinay Bunting on 89-61-0619QJC (Bld) [#/Vol]3.65 10*6/uL3.60-5.00[facility] Centererum or plasma albumin/globulin mass ratioOrdered By: Vinay Bunting on 25-56-5148Gmkhmrh/Globulin [Mass ratio]1.8 {ratio}[facility] Centererum or plasma anion gap determinationOrdered By: Vinay Bunting on 67-61-3038Wuodi gap [Moles/Vol]14.7 mmol/L6.0-15.0[facility] Centererum or plasma high density lipoprotein (HDL) cholesterol measurement Ordered By: Vinay Bunting on 82-45-1262Cyxsfohvmeb in HDL [Mass/Vol]40 mg/dL 23-92[facility] HospitalComment on above:HDL CHOL ATP-III CLASSIFICATION Cardiovascular RiskHDL > or equal to 60 mg/dL LOWHDL < 40 mg/dL HIGHSerum or plasma total cholesterol/high density lipoprotein (HDL) cholesterol mass ratOrdered By: Vinay Bunting on 86-57-5167Ttpzrxiqvbw.total/Cholesterol in HDL [Mass ratio]2.7 {ratio}<5.0[facility] Centerodium [Moles/volume] in Serum or PlasmaOrdered By: Vinay Bunting on 90-57-1934Logtxm [Moles/Vol]140 mmol/X822-047KjjvbrsoyMercy Health St. Charles HospitalTriglyceride [Mass/volume] in Serum or PlasmaOrdered By: Vinay Bunting on 05-24-2024 Triglyceride [Mass/Vol]106 mg/dL0-149[facility] HospitalComment on above:TRIG ATP III CLASSIFICATIONTRIG less than 150 mg/dL NormalTRIG 150-199 mg/dL Borderline highTRIG 200-500 mg/dL High TRIG greater than 500 mg/dL Very highStandard traceable to the Center for Disease Conrtrol and Prevention (CDC) test method.Urate [Mass/volume] in Serum or PlasmaOrdered By: Vinay Bunting on 94-58-3857Mokau [Mass/Vol]3.9 mg/dL2.3-6.6FMercy Health St. Rita's Medical CenterUrea nitrogen [Mass/volume] in Serum or PlasmaOrdered By: Vinay Bunting on 34-44-6098Kjdz nitrogen [Mass/Vol]26 mg/dLHigh7-25[facility] HospitalWBC Auto (Bld) [#/Vol]Ordered By: Vinay Bunting on 31-30-5926YVR (Bld) [#/Vol]5.9 10*3/uL3.8-11.6FMercy Health St. Rita's Medical CenterConsultation Noteon 58-28-0022Lnuzncaxjwlp [id number]#1.00TIFMemorial HospitalRetail - Clinical Noteon 42-35-2740Sqaroz - Clinical [id number]#1.[address] HospitalRetail - Clinical Note [id number]#1.[address] HospitalCHEMISTRYOrdered By: SYSTEM SYSTEM on 45-44-9652Noxqhva [Mass/Vol]4.2 g/dL Normal3.3 - 5.0 gm/dLRemisol ChemAlbumin/Globulin [Mass ratio]1.8 {ratio}Normal 1.1 - 2.2Remisol ChemALP [Catalytic activity/Vol]112 [iU]/dHigh21 - 98 Int._Unit/LRemisol ChemALT No additional P-5'-P [Catalytic activity/Vol]24 [iU]/dNormal6 - 46 Int._Unit/LRemisol ChemAnion gap [Moles/Vol]18 mmol/LHigh6 - 16 mEq/LRemisol ChemAST [Catalytic activity/Vol]31 [iU]/dNormal5 - 43 Int._Unit/LRemisol ChemBilirubin [Mass/Vol]0.5 mg/dLNormal0.0 - 1.1 mg/dLRemisol ChemCalcium [Mass/Vol]8.7 mg/dLLow8.9 - 11.1 mg/dLRemisol ChemChloride [Moles/Vol]99 mmol/HLjw912 - 111 mmol/LRemisol ChemCO2 [Moles/Vol]25 mmol/L Zdspxi44 - 31 mmol/LRemisol ChemCreatinine [Mass/Vol]1.7 mg/dLHigh0.5 - 1.3 mg/dLRemisol DhsclNTJ47 mL/min/1.73 m2Low>=59mL/min/1.73 d1Eazmrjq ChemFerritin [Mass/Vol]41 ng/iKGyjerp25 - 307 ng/mLRemisol ChemGlobulin (S) [Mass/Vol]2.4 g/dLNormal1.4 - 4.0 gm/dLRemisol ChemGlucose [Mass/Vol]188 mg/dMApnauv35 - 199 mg/dLRemisol ChemIron [Mass/Vol]70 ug/uEAesklp85 - 153 mcg/dLRemisol ChemIron binding capacity [Mass/Vol]433 ug/dJGcbd632 - 400 mcg/dLRemisol ChemMagnesium [Mass/Vol]1.3 mg/dLNormal1.3 - 2.4 mg/dLRemisol ChemPotassium [Moles/Vol]3.8 mmol/LNormal3.5 - 5.3 mmol/LRemisol ChemProtein [Mass/Vol]6.6 g/dLNormal6.0 - 7.8 gm/dLRemisol ChemSodium [Moles/Vol]138 mmol/OEaxmuz611 - 145 mmol/LRemisol ChemTransferrin [Mass/Vol]309 mg/cRUxkbjc263 - 370 mg/dLRemisol ChemUrea nitrogen [Mass/Vol]36 mg/dLHigh5 - 21 mg/dLRemisol ChemUrea nitrogen/Creatinine [Mass ratio]21 mg/jaQgio56 - 20Remisol ChemCOAGULATIONOrdered By: Karlie Gomez on 74-51-6881BHV Coag (PPP) [Relative time]1.10 {INR}Invalid Interpretation CodeP[facility] Auto CoagComment on above:Interpretive Data: INR results are specifically intended to assess patients stabilized on long-term Anticoagulation therapy suggested INR s Less Intensive Anticoagulation 2.0 3.0 Conventional Range 3.0 4.5PT Coag (PPP) [Time]12.3 sNormal9.4 - 12.5 second(s) [facility] Auto CoagComment on above:Interpretive Data: 15 days - 4 weeks 1 - 5 months 6 -11 months 1 5 years 6 10 years 11 -17 years Mean: 11.2 (9.5 12.6) Mean: 11.0 (9.7 12.8) Mean: 11.0 (9.8 13.0) Mean: 11.3 (9.9 13.4) Mean: 11.7 (10.0 14.6) Mean: 11.8 (10.0 - 14.1) Pediatric Reference ranges were obtained from a study by aMnuel Jeffries et al. prepared from 1437 samples obtained at 7 different centers using the same coagulation reagent and instrumentation as [facility]. Currently there are no coagulation studies available worldwide for children to 14 days, andno normal ranges.HEMATOLOGYOrdered By: SYSTEM SYSTEM on 93-02-6870Hxdweaoyfjc distribution width (RBC) [Ratio]17.1 %High10.9 - 14.2 %Remisol HemeHematocrit (Bld) [Volume fraction]31.2 %Low34.0 - 46.0 %Remisol HemeHemoglobin (Bld) [Mass/Vol]10.4 g/dLLow12.0 - 16.0 gm/dLRemisol HemeMCH (RBC) [Entitic mass]28.7 ksWxhtyz10.0 - 34.0 pgRemisol HemeMCHC (RBC) [Mass/Vol]33.5 g/uIPdfoxc62.4 - 36.0 gm/dLRemisol HemeMCV (RBC) [Entitic vol]85.7 nBCxqjru68.0 - 100.0 fLRemisol HemePlatelet mean volume (Bld) [Entitic vol]7.5 fLNormal6.4 - 10.8 fLRemisol HemePlatelets (Bld) [#/Vol]152.0 E9/RDxrspc059.0 - 500.0 E9/LRemisol HemeRBC (Bld) [#/Vol]3.6 E12/LLow4.3 - 5.9 E12/LRemisol HemeWBC corrected for nucl RBC Auto (Bld) [#/Vol]5.3 E9/LNormal4.0 - 11.0 E9/LRemisol HemeAlanine aminotransferase [Enzymatic activity/volume] in Serum or PlasmaOrdered By: Vinay Bunting on 95-71-1826YGI [Catalytic activity/Vol]24 U/L7-52[facility] HospitalAlbumin [Mass/volume] in Serum or Plasma by Bromocresol green (BCG) dye binding methoOrdered By: Vinay Bunting on 58-16-7817Cbxbwqm BCG dye [Mass/Vol]4.2 g/dL3.5-5.7FMercy Health St. Rita's Medical CenterAlkaline phosphatase [Enzymatic activity/volume] in Serum or PlasmaOrdered By: Vinay Bunting on 55-87-0945HMU [Catalytic activity/Vol]105 U/Y14-379TourtonzfMercy Health St. Charles HospitalAspartate aminotransferase [Enzymatic activity/volume] in Serum or PlasmaOrdered By: Vinay Bunting on 86-32-8229AAZ [Catalytic activity/Vol]24 U/L 13-39[facility] HospitalBasophils Auto (Bld) [#/Vol]Ordered By: Vinay Bunting on 91-14-3987Njstpoftt (Bld) [#/Vol]0.0 10*3/uL0.0-0.2FMercy Health St. Rita's Medical CenterBasophils/100 WBC Auto (Bld)Ordered By: Vinay Bunting on 65-70-8312Fbwhigvqu/100 WBC (Bld)0.5 %.[facility] Bilirubin.total [Mass/volume] in Serum or PlasmaOrdered By: Vinay Bunting on 75-25-2623Jxryfkvjb [Mass/Vol]0.5 mg/dL0.3-1.0[facility] Calcium [Mass/volume] in Serum or PlasmaOrdered By: Vinay Bunting on 09-05-2023 Calcium [Mass/Vol]9.1 mg/dL8.6-10.3FMercy Health St. Rita's Medical CenterCarbon dioxide, total [Moles/volume] in Serum or PlasmaOrdered By: Vinay Bunting on 54-08-3774WP6 [Moles/Vol]29.2 mmol/L21.0-31.0[facility] Chloride [Moles/volume] in Serum or PlasmaOrdered By: Vinay Bunting on 94-63-9169Rhucnblf [Moles/Vol]103 mmol/V84-893EyudtbgewMercy Health St. Charles Hospital Cholesterol [Mass/volume] in Serum or PlasmaOrdered By: Vinay Bunting on 31-16-0185Vejfxbvksmk [Mass/Vol]116 mg/qG640-738QqlextinsMercy Health St. Charles HospitalComment on above:Chol less than 200 mg/dl low riskChol 201-239 mg/dl borderline riskChol 240 mg/dl and greater high riskCholesterol in LDL Calc [Mass/Vol]Ordered By: Vinay Bunting on 89-56-6904Alhqqnhtqyb in LDL [Mass/Vol] 55 mg/dL0-100[facility] HospitalComment on above:LDL ATP III CLASSIFICATIONLDL less than 100 mg/dL OptimalLDL 100-129 mg/dL Near or above ssldjriBGI898-257 mg/dL Borderline highLDL 160-189 mg/dL HighLDL greater than 189 mg/dL Very highCholesterol in VLDL Calc [Mass/Vol]Ordered By: Vinay Bunting on 48-54-9734Xvfznouviia in VLDL [Mass/Vol]18 mg/dLMercy Health St. Charles HospitalCreatinine [Mass/volume] in Serum or PlasmaOrdered By: Vinay Bunting on 39-14-8429Vixrqiffrh [Mass/Vol]1.67 mg/dL0.60-1.20[facility] HospitalEosinophils Auto (Bld) [#/Vol]Ordered By: Vinay Bunting on 09-05-2023 Eosinophils (Bld) [#/Vol]0.1 10*3/uL0.0-0.45[facility] Eosinophils/100 WBC Auto (Bld)Ordered By: Vinay Bunting on 09-05-2023 Eosinophils/100 WBC (Bld)2.7 %.[facility] HospitalErythrocyte distribution width Auto (RBC) [Ratio]Ordered By: Vinay Matta on 09-05-2023 Erythrocyte distribution width (RBC) [Ratio]17.2 %11.9-15.3FMercy Health St. Rita's Medical CenterGlobulin Calc (S) [Mass/Vol]Ordered By: Vinay Matta on 16-25-4887Baxudeke (S) [Mass/Vol]2.2 g/dLMercy Health St. Charles Hospital Glucose [Mass/volume] in Serum or PlasmaOrdered By: Vinay Matta on 09-05-2023 Glucose [Mass/Vol]172 mg/mB52-528CtdoovkuuMercy Health St. Charles HospitalComment on above:ADA recommended reference rangeRandom Glucose Reference Range is dependent on time and content of last meal. Glucose of more than 200 mg/dL in a nonstressed, ambulatory subject supports the diagnosisof Diabetes Mellitus. Glucose mean value [Mass/volume] in Blood Estimated from glycated hemoglobin Ordered By: Vinay Matta on 38-26-9266Mkoslau glucose Estimated from glycated hemoglobin (Bld) [Mass/Vol]192 mg/dLMercy Health St. Charles HospitalHematocrit Auto (Bld) [Volume fraction]Ordered By: Vinay Matta on 95-35-8305Pbiveutyhe (Bld) [Volume fraction]31.6 %34.0-46.4FMercy Health St. Rita's Medical Center Hemoglobin A1c percentageOrdered By: Vinay Matta on 58-09-2245XjW0d (Bld) [Mass fraction]8.3 %4.3-5.6FMercy Health St. Rita's Medical CenterComment on above: Increased risk for diabetes: 5.7 - 6.4diabetes: >6.4glycemic control for adults with diabetes: <7.0Hemoglobin [Mass/volume] in BloodOrdered By: Vinay Matta on 43-14-5672Mrxybiszji (Bld) [Mass/Vol]11.0 g/dL11.8-15.4FMercy Health St. Rita's Medical CenterLeukocytes [#/volume] corrected for nucleated erythrocytes in Blood by Automated counOrdered By: Vinay Matta on 09-05-2023 WBC corrected for nucl RBC Auto (Bld) [#/Vol]5.3 10*3/uL3.8-11.6FMercy Health St. Rita's Medical CenterLymphocytes Auto (Bld) [#/Vol]Ordered By: Vinay Bunting on 43-32-8218Zqyuyuesblm (Bld) [#/Vol]1.5 10*3/uL1.00-4.8[facility] HospitalLymphocytes/100 WBC Auto (Bld)Ordered By: Vinay Bunting on 76-09-0195Gpmwjdunnyq/100 WBC (Bld)28.2 %.[facility] ClinicH Auto (RBC) [Entitic mass]Ordered By: Vinay Bunting on 50-62-4513VDT (RBC) [Entitic mass]29.1 pg24.7-34.3FOhio State Health SystemHC Auto (RBC) [Mass/Vol]Ordered By: Vinay Bunting on 12-47-7850LZIB (RBC) [Mass/Vol]34.9 g/dL 32.0-35.0[facility] HospitalMCV Auto (RBC) [Entitic vol]Ordered By: Vinay Bunting on 67-67-5532QMT (RBC) [Entitic vol]83.3 dW51-775EfhhopegyMercy Health St. Charles HospitalMonocytes Auto (Bld) [#/Vol]Ordered By: Vinay Bunting on 02-59-9177Qotaucoqn (Bld) [#/Vol]0.3 10*3/uL0.0-0.8[facility] HospitalMonocytes/100 WBC Auto (Bld)Ordered By: Vinay Bunting on 09-05-2023 Monocytes/100 WBC (Bld)5.0 %.[facility] HospitalNeutrophils Auto (Bld) [#/Vol]Ordered By: Vinay Bunting on 22-42-1613Ictuswmdkes (Bld) [#/Vol] 3.4 10*3/uL1.8-7.7FMercy Health St. Rita's Medical CenterNeutrophils/100 WBC Auto (Bld)Ordered By: Vinay Bunting on 98-00-4709Hpmwqevyfhe/100 WBC (Bld)63.6 %. [facility] HospitalNo Panel InformationOrdered By: Vinay Bunting on 91-91-4187Utdnnbbrs GFR (CKD-EPI)31.949 mL/MinMercy Health St. Charles HospitalPharmacy Creatinine Clearance (ChemN/AFMercy Health St. [facility]'s [facility] Nucleated erythrocytes [Presence] in Blood by Automated countOrdered By: Vinay Bunting on 41-72-4996Egjtdzwqh RBC Auto Ql (Bld)0.0 /100{WBC}0-0.5FMercy Health St. Rita's Medical CenterPlatelet mean volume Auto (Bld) [Entitic vol]Ordered By: Vinay Bunting on 40-37-5121Thzqnjzi mean volume (Bld) [Entitic vol]7.3 fL 6.3-10.7FMercy Health St. Rita's Medical CenterPlatelets Auto (Bld) [#/Vol]Ordered By: Vinay Bunting on 18-63-3620Ilvqplnzk (Bld) [#/Vol]150 10*3/oR981-635LpvlqupetMercy Health St. Charles HospitalPotassium [Moles/volume] in Serum or PlasmaOrdered By: Vinay Bunting on 21-84-6887Fubzoslqe [Moles/Vol]4.0 mmol/L3.5-5.1FMercy Health St. Rita's Medical CenterProtein [Mass/volume] in Serum or PlasmaOrdered By: Vinay Bunting on 81-95-9253Cbtetpd [Mass/Vol]6.4 g/dL6.4-8.9[facility] HospitalRBC Auto (Bld) [#/Vol]Ordered By: Vinay Bunting on 71-92-4977QBD (Bld) [#/Vol]3.79 10*6/uL3.60-5.00[facility] Centererum or plasma albumin/globulin mass ratioOrdered By: Vinay Bunting on 09-05-2023 Albumin/Globulin [Mass ratio]1.9 {ratio}[facility] Centererum or plasma anion gap determinationOrdered By: Vinay Bunting on 18-99-5802Lsqnq gap [Moles/Vol]13.8 mmol/L6.0-15.0[facility] Centererum or plasma high density lipoprotein (HDL) cholesterol measurementOrdered By: Vinay Bunting on 29-42-8063Qrtdvkyodrv in HDL [Mass/Vol]42 mg/nI85-21FwdcnkaucMercy Health St. Charles HospitalComment on above:HDL CHOL ATP-III CLASSIFICATION Cardiovascular RiskHDL > or equal to 60 mg/dL LOWHDL < 40 mg/dL HIGHSerum or plasma total cholesterol/high density lipoprotein (HDL) cholesterol mass rat Ordered By: Vinay Matta on 97-41-7876Hgvcsgzfdpz.total/Cholesterol in HDL [Mass ratio]2.8 {ratio}<5.0[facility] Centerodium [Moles/volume] in Serum or PlasmaOrdered By: Vinay Bunting on 15-08-5286Tgomae [Moles/Vol]142 mmol/O485-261NonfskjeeMercy Health St. Charles HospitalTriglyceride [Mass/volume] in Serum or PlasmaOrdered By: [facility] Bunting on 09-05-2023 Triglyceride [Mass/Vol]93 mg/dL0-149[facility] HospitalComment on above:TRIG ATP III CLASSIFICATIONTRIG less than 150 mg/dL NormalTRIG 150-199 mg/dL Borderline highTRIG 200-500 mg/dL High TRIG greater than 500 mg/dL Very highStandard traceable to the Center for Disease Conrtrol and Prevention (CDC) test method.Urate [Mass/volume] in Serum or PlasmaOrdered By: Vinay Bunu.[facility] on 06-08-1348Qhexs [Mass/Vol]6.0 mg/dL2.3-6.6FMercy Health St. Rita's Medical CenterUrea nitrogen [Mass/volume] in Serum or PlasmaOrdered By: Vinay Bunting on 90-68-2015Okbb nitrogen [Mass/Vol]38 mg/dL7-25[facility] WBC Auto (Bld) [#/Vol]Ordered By: Vinay Escalerau.[facility] on 79-75-2220ZDS (Bld) [#/Vol] 5.3 10*3/uL3.8-11.6FMercy Health St. Rita's Medical CenterCBC AUTO DIFFon 03-27-2023 BASO #0.0 103/ulNormal0.0-0.1The [facility] ClinicComment on above:Performed By: #### CBC #### [facility] [address] [address] [address] Anamika Beansophils/100 WBC (Bld)0.3 %Normal0.2-2.0[facility] Comment on above:Performed By: #### CBC #### [facility] [address] [address] [address] Anamika Barth #0.1 103/ulNormal0.0-0.7The [facility] ClinicComment on above: Performed By: #### CBC #### [facility] [address] [address] [address] Anamika Holdenosinophils/100 WBC (Bld)1.7 %Normal0.9-7.0[facility] Comment on above:Performed By: #### CBC #### [facility] [address] [place] [address] Dr. Anamika Holdenrythrocyte distribution width (RBC) [Ratio]15.4 %Critically high 11.0-15.0The [facility] Hospitalment on above:Performed By: #### CBC #### [facility] [address] [place] [address] Dr. Anamika VargheseHematocrit (Bld) [Volume fraction]32.2 %Critically low36.0-48.0 The [facility] ClinicComment on above:Performed By: #### CBC #### [facility] [address] [place] [address] Dr. Anamika VargheseHemoglobin (Bld) [Mass/Vol]10.9 g/dLCritically low12.0-16.0The [facility] ClinicComment on above:Performed By: #### CBC #### [facility] [address] [place] [address] Dr. Anamika Keane #0.02 10e3/ulNormal0.00-0.03The [facility] ClinicComment on above:Performed By: #### CBC #### [facility] [address] [place] [address] Dr. Anamika Keane %0.3 %Normal0.0-0.5The [facility] ClinicComment on above: Performed By: #### CBC #### [facility] [address] [place] [address] Dr. Anamika Portillo #1.5 103/ulNormal1.2-3.8The [facility] ClinicComment on above:Performed By: #### CBC #### [facility] [address] [place] [address] Dr. Anamika Cohnmphocytes/100 WBC (Bld)25.0 %Qmkmoq48.5-60.0The [facility] ClinicComment on above:Performed By: #### CBC #### [facility] [address] [place] [address] Dr. Anamika MabryUAL DIFF REQNONormalThe [facility] ClinicComment on above: Performed By: #### CBC #### [facility] [address] [place] [address] Dr. Anamika Jean (RBC) [Entitic mass]29.0 ioWgdqrw83.7-34.0The [facility] ClinicComment on above:Performed By: #### CBC #### [facility] [address] [place] [address] Dr. Anamika Jean (RBC) [Mass/Vol]33.9 g/yKEszism35.9-35.2The [facility] ClinicComment on above:Performed By: #### CBC #### [facility] [address] [place] [address] Dr. Anamika Jean (RBC) [Entitic vol]85.6 wUPtqmbq75.0-99.0The [facility] ClinicComment on above:Performed By: #### CBC #### [facility] [address] [place] [address] Dr. Anamika Gerber #0.3 103/ulNormal0.3-0.8The [facility] ClinicComment on above:Performed By: #### CBC #### [facility] [address] [place] [address] Dr. Anamika Bealuieuocytes/100 WBC (Bld)4.5 %Normal1.7-12.0The [facility] on above:Performed By: #### CBC #### [facility] [address] [place] [address] Dr. Anamika Rowe #4.1 103/ulNormal1.4-6.5The [facility] ClinicComment on above:Performed By: #### CBC #### [facility] Laboratory [address] [address] [address] Anamika Bautistautrophils/100 WBC (Bld)68.2 %Vfmtnc65.0-75.0The Cleveland ClinicComment on above:Performed By: #### CBC #### [facility] [address] [place] [address] Dr. Anamika VarghesePlatelet mean volume (Bld) [Entitic vol]8.9 fLCritically low 9.5-13.5The [facility] ClinicComment on above:Performed By: #### CBC #### [facility] [address] [place] [address] Dr. Anamika VarghesePLT172 103/fbXpssxb012-011Wtj Cleveland ClinicComment on above: Performed By: #### CBC #### [facility] [address] [place] [address] Dr. Anamika VargheseRBC3.76 106/ulCritically low4.20-5.40The [facility] ClinicComment on above:Performed By: #### CBC #### [facility] [address] [place] [address] Dr. Anamika VargheseWBC6.0 103/ulNormal4.0-11.0The Cleveland ClinicComment on above: Performed By: #### CBC #### [facility] [address] [place] [address] Dr. Anamika VarghesePROReinaldo 14(COMP METB)on 29-13-5645Zehbwqa [Mass/Vol]3.5 g/dLNormal 3.4-5.0The [facility] ClinicComment on above:Performed By: #### FETIBC, FERR, B12FOL #### [facility] [address] [place] [address] Dr. Anamika VargheseAlbumin/Globulin [Mass ratio]1.0 {ratio}NormalThe [facility] on above:Performed By: #### FETIBC, FERR, B12FOL #### [facility] [address] [place] [address] Dr. Anamika Simon [Catalytic activity/Vol]109 U/ICaacfd74-656Ayo Cleveland ClinicComment on above:Performed By: #### FETIBC, FERR, B12FOL #### [facility] [address] [place] [address] Dr. Anamika Cook [Catalytic activity/Vol]34 U/FJyxfjx21-17Sbr [facility] ClinicComment on above:Performed By: #### FETIBC, FERR, B12FOL #### [facility] [address] [place] [address] Dr. Anamika Winn gap [Moles/Vol]13.8 mmol/LNormalThe [facility] Comment on above:Performed By: #### FETIBC, FERR, B12FOL #### [facility] [address] [place] [address] Dr. Anamika Barber [Catalytic activity/Vol]20 U/DWbvcks04-45Nrc [facility] ClinicComment on above:Performed By: #### FETIBC, FERR, B12FOL #### [facility] [address] [place] [address] Dr. Anamika VargheseBilirubin [Mass/Vol]0.4 mg/dLNormal0.2-1.0[facility] Comment on above:Performed By: #### FETIBC, FERR, B12FOL #### [facility] [address] [place] [address] Dr. Anamika VargheseCalcium [Mass/Vol]8.7 mg/dLNormal8.5-10.1[facility] Comment on above:Performed By: #### FETIBC, FERR, B12FOL #### [facility] [address] [place] [address] Dr. Anamika VargheseChloride [Moles/Vol]107 mmol/CHgtwue10-706Uoi [facility] Comment on above:Performed By: #### FETIBC, FERR, B12FOL #### [facility] [address] [place] [address] Dr. Anamika VargheseCO2 [Moles/Vol]28.2 mmol/AKwxkgy94.0-32.0[facility] Comment on above:Performed By: #### FETIBC, FERR, B12FOL #### [facility] [address] [place] [address] Dr. Anamika VargheseCreatinine [Mass/Vol]1.27 mg/dLCritically high0.55-1.02The [facility] ClinicComment on above:Performed By: #### FETIBC, FERR, B12FOL #### [facility] [address] [place] [address] Dr. Willson ChangEGFR-AF OLZVUUVS60 mL/min/1.63k2Cethjdysby low>=60The [facility] ClinicComment on above:Performed By: #### FETIBC, FERR, B12FOL #### [facility] [address] [place] [address] Dr. Willson ChangEGFR-NON AF RLQRTPCR33 mL/min/1.18g7Njhanslcvj low>=60The [facility] ClinicComment on above:Performed By: #### FETIBC, FERR, B12FOL #### [facility] [address] [place] [address] Dr. Anamika VargheseGlobulin (S) [Mass/Vol]3.6 g/dLNormalThe Cleveland ClinicComment on above:Performed By: #### FETIBC, FERR, B12FOL #### [facility] [address] [place] [address] Dr. Anamika VargheseGlucose [Mass/Vol]116 mg/dLCritically pvtc30-080Lzm [facility] Hospitalment on above:Performed By: #### FETIBC, FERR, B12FOL #### [facility] [address] [place] [address] Dr. Anamika VarghesePotassium [Moles/Vol]4.0 mmol/LNormal3.5-5.1[facility] Comment on above:Performed By: #### FETIBC, FERR, B12FOL #### [facility] [address] [place] [address] Dr. Anamika VargheseProtein [Mass/Vol]7.1 g/dLNormal6.4-8.2[facility] Comment on above:Performed By: #### FETIBC, FERR, B12FOL #### [facility] [address] [address] [address] Anamika VargheseSodium [Moles/Vol]145 mmol/HVtlnrn373-468Wrt [facility] Comment on above:Performed By: #### FETIBC, FERR, B12FOL #### [facility] [address] [address] [address] Anamika Marrero nitrogen [Mass/Vol]24.0 mg/dLCritically high7.0-18.0[facility] CenterComment on above:Performed By: #### FETIBC, FERR, B12FOL #### [facility] [address] [address] [address] Anamika Marrero nitrogen/Creatinine [Mass ratio]18.9 mg/mgNormalThe Cleveland ClinicComment on above:Performed By: #### FETIBC, FERR, B12FOL #### [facility] [address] [place] [address] Dr. Anamika VargheseBasophils Auto (Bld) [#/Vol]Ordered By: Kimberly Arteaga on 02-93-8057Nngsoojno (Bld) [#/Vol]0.0 10*3/uL0.0-0.2FMercy Health St. Rita's Medical CenterBasophils/100 WBC Auto (Bld)Ordered By: Kimberly Arteaga on 03-13-2023 Basophils/100 WBC (Bld)0.4 %.[facility] HospitalCalcium [Mass/volume] in Serum or PlasmaOrdered By: Kimberly Arteaga on 49-40-0330Cdfksbq [Mass/Vol]8.5 mg/dL8.6-10.3FMercy Health St. Rita's Medical CenterCarbon dioxide, total [Moles/volume] in Serum or PlasmaOrdered By: Kimberly Arteaga on 03-13-2023 CO2 [Moles/Vol]29.6 mmol/L21.0-31.0[facility] HospitalChloride [Moles/volume] in Serum or PlasmaOrdered By: Kimberly Arteaga on 83-05-5636Xqpzyzwd [Moles/Vol]103 mmol/M48-851RsytvkyegMercy Health St. Charles HospitalCreatinine [Mass/volume] in Serum or PlasmaOrdered By: Kimberly Arteaga on 03-13-2023 Creatinine [Mass/Vol]1.35 mg/dL0.60-1.20[facility] Eosinophils Auto (Bld) [#/Vol]Ordered By: Kimberly Arteaga on 01-30-8557Ptdkvhffstb (Bld) [#/Vol]0.1 10*3/uL0.0-0.45[facility] Eosinophils/100 WBC Auto (Bld)Ordered By: Kimberly Arteaga on 03-13-2023 Eosinophils/100 WBC (Bld)1.7 %.[facility] HospitalErythrocyte distribution width Auto (RBC) [Ratio]Ordered By: Kimberly Arteaga on 03-13-2023 Erythrocyte distribution width (RBC) [Ratio]16.8 %11.9-15.3FMercy Health St. Rita's Medical CenterGlucose Glucometer (BldC) [Mass/Vol]Ordered By: Kimberly Arteaga on 22-70-5835Nfcdikm [Mass/Vol]162 mg/dLMercy Health St. Charles HospitalComment on above:Random Glucose Reference Range is dependent on time and content of last meal. Glucose of more than 200 mg/dL in a nonstressed, ambulatory subject supports the diagnosis of Diabetes Mellitus.Glucose [Mass/volume] in Serum or PlasmaOrdered By: Kimberly Arteaga on 67-83-3560Svnikvm [Mass/Vol]130 mg/aC39-[address] [facility] HospitalComment on above:ADA recommended reference rangeRandom Glucose Reference Range is dependent on time and content of last meal. Glucose of more than 200 mg/dL in a nonstressed, ambulatory subject supports the diagnosisof Diabetes Mellitus.Hematocrit Auto (Bld) [Volume fraction]Ordered By: Kimberly Arteaga on 75-19-8328Ffytkpdefh (Bld) [Volume fraction]32.5 %34.0-46.4FMercy Health St. Rita's Medical CenterHemoglobin [Mass/volume] in BloodOrdered By: Kimberly Arteaga on 97-48-6596Rmheomdcbb (Bld) [Mass/Vol]10.9 g/dL11.8-15.4FMercy Health St. Rita's Medical CenterLeukocytes [#/volume] corrected for nucleated erythrocytes in Blood by Automated coun Ordered By: Kimberly Arteaga on 41-80-6587GYU corrected for nucl RBC Auto (Bld) [#/Vol]5.0 10*3/uL3.8-11.6FMercy Health St. Rita's Medical CenterLymphocytes Auto (Bld) [#/Vol]Ordered By: Kimberly Arteaga on 73-48-1600Rwonghaejzc (Bld) [#/Vol]1.4 10*3/uL1.00-4.8[facility] HospitalLymphocytes/100 WBC Auto (Bld) Ordered By: Kimberly Arteaga on 53-47-9074Guzeulmjfta/100 WBC (Bld)28.5 %.[facility] ClinicH Auto (RBC) [Entitic mass]Ordered By: Kimberly Arteaga on 77-57-2729UBB (RBC) [Entitic mass]28.6 pg24.7-34.3FMercy Health St. Rita's Medical CenterMCHC Auto (RBC) [Mass/Vol]Ordered By: Kimberly Arteaga on 88-17-7877GKBS (RBC) [Mass/Vol]33.5 g/dL32.0-35.0[facility] HospitalMCV Auto (RBC) [Entitic vol]Ordered By: Kimberly Arteaga on 25-19-1522LID (RBC) [Entitic vol]85.3 iV21-110EwfkqolzuMercy Health St. Charles HospitalMonocytes Auto (Bld) [#/Vol] Ordered By: Kimberly Arteaga on 05-84-0609Zcxcofvzm (Bld) [#/Vol]0.3 10*3/uL0.0-0.[address] [facility] HospitalMonocytes/100 WBC Auto (Bld)Ordered By: Kimberly Arteaga on 70-77-7496Trdvtfwjl/100 WBC (Bld)6.9 %.[facility] HospitalNeutrophils Auto (Bld) [#/Vol]Ordered By: Kimberly Arteaga on 03-13-2023 Neutrophils (Bld) [#/Vol]3.1 10*3/uL1.8-7.7FMercy Health St. Rita's Medical Center Neutrophils/100 WBC Auto (Bld)Ordered By: Kimberly Arteaga on 03-13-2023 Neutrophils/100 WBC (Bld)62.5 %.[facility] HospitalNo Panel InformationOrdered By: Kimberly Arteaga on 49-59-7648Huesmleny GFR (CKD-EPI)41.239 mL/MinMercy Health St. Charles HospitalPharmacy Creatinine Clearance (Chem39.[address] [facility] HospitalNucleated erythrocytes [Presence] in Blood by Automated countOrdered By: Kimberly Arteaga on 84-89-7646Oaonzmqyw RBC Auto Ql (Bld)0.1 /100{WBC}0-0.5FMercy Health St. Rita's Medical CenterPlatelet mean volume Auto (Bld) [Entitic vol]Ordered By: Kimberly Arteaga on 63-68-6841Bswdspnw mean volume (Bld) [Entitic vol]7.2 fL6.3-10.7FMercy Health St. Rita's Medical Center Platelets Auto (Bld) [#/Vol]Ordered By: Kimberly Arteaga on 11-24-2192Lythfwjcy (Bld) [#/Vol]152 10*3/wL771-654QgtnprjxtMercy Health St. Charles HospitalPotassium [Moles/volume] in Serum or PlasmaOrdered By: Kimberly Arteaga on 03-13-2023 Potassium [Moles/Vol]3.8 mmol/L3.5-5.1FMercy Health St. Rita's Medical CenterRBC Auto (Bld) [#/Vol]Ordered By: Kimberly Arteaga on 13-64-2129JOB (Bld) [#/Vol]3.81 10*6/uL3.60-5.00[facility] Centererum or plasma anion gap determinationOrdered By: Kimberly Arteaga on 46-04-4573Pfnam gap [Moles/Vol]TNP [facility] HospitalComment on above:Test not performedSodium [Moles/volume] in Serum or PlasmaOrdered By: Kimberly Arteaga on 25-51-7790Bkldvd [Moles/Vol]141 mmol/J551-707XxhpjqxbrMercy Health St. Charles HospitalUrea nitrogen [Mass/volume] in Serum or PlasmaOrdered By: Kimberly Arteaga on 53-44-0952Vfsl nitrogen [Mass/Vol]28 mg/dL7-25Mer[facility] St. [facility] HospitalWBC Auto (Bld) [#/Vol]Ordered By: Kimberly Arteaga on 11-64-0592ROW (Bld) [#/Vol]5.0 10*3/uL 3.8-11.6FMercy Health St. Rita's Medical CenterCholesterol [Mass/volume] in Serum or PlasmaOrdered By: Kimberly Arteaga on 22-88-6351Ugnmttdkakt [Mass/Vol]118 mg/dL 140-200Mer[facility] St. Charles HospitalComment on above:Chol less than 200 mg/dl low riskChol 201-239 mg/dl borderline riskChol 240 mg/dl and greater high riskCholesterol in LDL Calc [Mass/Vol]Ordered By: Kimberly Arteaga on 03-12-2023 Cholesterol in LDL [Mass/Vol]51 mg/dL0-100[facility] Comment on above:LDL ATP III CLASSIFICATIONLDL less than 100 mg/dL OptimalLDL 100-129 mg/dL Near or above qqabqogXTS650-282 mg/dL Borderline highLDL 160-189 mg/dL HighLDL greater than 189 mg/dL Very highCholesterol in VLDL Calc [Mass/Vol]Ordered By: Kimberly Arteaga on 95-32-6989Bgnkizkqnpz in VLDL [Mass/Vol] 32 mg/dLPremier Health Upper Valley Medical Centererum or plasma high density lipoprotein (HDL) cholesterol measurementOrdered By: Kimberly Arteaga on 03-12-2023 Cholesterol in HDL [Mass/Vol]35 mg/aE28-99XexmcwpjfMercy Health St. Charles Hospital Comment on above:HDL CHOL ATP-III CLASSIFICATION Cardiovascular RiskHDL > or equal to 60 mg/dL LOWHDL < 40 mg/dL HIGHSerum or plasma total cholesterol/high density lipoprotein (HDL) cholesterol mass ratOrdered By: Kimberly Arteaga on 40-89-6630Nqpqoaolqar.total/Cholesterol in HDL [Mass ratio]3.4 {ratio}<5.[address] [facility] HospitalTriglyceride [Mass/volume] in Serum or Plasma Ordered By: Kimberly Arteaga on 05-03-4666Wcrmnyagptcn [Mass/Vol]160 mg/dL0-[address] [facility] HospitalComment on above:TRIG ATP III CLASSIFICATIONTRIG less than 150 mg/dL NormalTRIG 150-199 mg/dL Borderline highTRIG 200-500 mg/dL High TRIG greater than 500 mg/dL Very highStandard traceable to the Center for Disease Conrtrol and Prevention (CDC) test method. Activated partial thromboplastin time (aPTT) in platelet poor plasma by coagulation aOrdered By: Anthony Rose on 83-58-2142cBLQ Coag (PPP) [Time]33.9 s25.1-36.5FMercy Health St. Rita's Medical CenterAutomated erythrocytes count in urine sediment (number/area)Ordered By: Anthony Rose on 83-09-5260YXJ Auto (Urine sed) [#/Area]0-1 [HPF]0-4FMercy Health St. Rita's Medical CenterAutomated leukocytes count in urine sediment (number/area)Ordered By: Anthony Rose on 27-82-3541OFX Auto (Urine sed) [#/Area]10-19 [HPF]0-4FMercy Health St. Rita's Medical Center Bilirubin Test strip Ql (U)Ordered By: Anthony Rose on 66-74-5501Kcawnlbzg Ql (U)NegativeNegProMedica Fostoria Community HospitalColor Auto (U)Ordered By: Anthony Rose on 98-46-5487Gpmrz (U)YellowYellowMercy Health St. Charles HospitalCreatine kinase [Enzymatic activity/volume] in Serum or PlasmaOrdered By: Anthony Rose on 99-59-3186HS [Catalytic activity/Vol]64 U/L91-215JfxbogjfvMercy Health St. Charles HospitalCreatinine (Bld) [Mass/Vol]Ordered By: Anthony Rose on 05-06-6722Jtzuzgytvc [Mass/Vol]1.7 mg/dL0.6-1.3FMercy Health St. Rita's Medical Center Comment on above:ER/ESD physician is notified/shown all ISTAT results.Critical values may be confirmed by laboratorytesting ifdeemed necessary by ER attending doctor.Ketones Auto test strip (U) [Mass/Vol]Ordered By: Anthony Rose on 27-93-3665Yvsbhov (U) [Mass/Vol]NegativeNegativeMercy Health St. Charles HospitalLaboratory - CoagulationOrdered By: Anthony Rose on 56-63-1269VQ Coag (PPP) [Time]13.5 s9.0-12.9[facility] HospitalLaboratory - UrinalysisOrdered By: Anthony Rose on 72-55-3832Wfxznci casts LM Ql (Urine sed)0-8 [LPF]0-8[facility] HospitalMonocyte distribution width [Entitic volume] in Blood by AutomatedOrdered By: Anthony Rose on 03-11-2023 Monocyte distribution width Auto (Bld) [Entitic vol]17.19 %0.00-20.00[facility] HospitalNitrite Test strip Ql (U)Ordered By: Anthony Rose on 48-86-6134Ettttwp Ql (U)NegativeNegativeMercy Health St. Charles HospitalNo Panel InformationOrdered By: Anthony Rose on 05-86-7610Rfhdqhz Glucose Comment Glu2: cleaned meterMercy Health St. Charles HospitalPlatelet poor plasma international normalized ratio (INR) by coagulation assay (relatOrdered By: Anthony Rose on 65-34-1237ANI Coag (PPP) [Relative time]1.2 {INR}[facility] HospitalComment on above:INR Therapeutic Range A) Pre- and [...] strip (U) [Mass/Vol]Ordered By: Anthony Rose on 44-32-6621Vxwxwuc (U) [Mass/Vol]Negative NegativePremier Health Upper Valley Medical Centerpecific gravity Auto test strip (U) [Rel density]Ordered By: Anthony Rose on 97-02-5790Sojerwey gravity (U) [Rel density]1.0201.001-1.030[facility] Centerquamous epithelial cells detection in urine sediment by light microscopyOrdered By: Anthony Rose on 75-09-3966Mehbktsjkx cells.squamous LM Ql (Urine sed)5-9 [HPF]0-2FMercy Health St. Rita's Medical CenterTroponin I.cardiac [Mass/volume] in Serum or Plasma by Detection limit <= 0.01 ng/Ordered By: Anthony Rose on 55-14-3980Kyycnmhw I.cardiac DL <= 0.01 ng/mL [Mass/Vol]3.7 pg/mL0.0-15.0[facility] HospitalUrine bacteria detection by automated methodOrdered By: Anthony Rose on 36-23-4228Rgdjejlu Auto Ql (U)None seenNone SeenMercy Health St. Charles HospitalUrine clarity by refractometry automatedOrdered By: Anthony Rose on 29-90-8958Pughxhb Refractometry automated (U)ClearClearFMercy Health St. Rita's Medical CenterUrine culture routineOrdered By: Anthony Rose on 03-11-2023 Bacteria identified Cx Nom (U)Escherichia coliMercy Health St. Charles Hospital Urine glucose measurement by automated test strip (mass/volume)Ordered By: Anthony Rose on 06-85-7900Xdfxxiu Auto test strip (U) [Mass/Vol]Normal mg/dL NormalMercy Health St. Charles HospitalUrine hemoglobin detection by automated test stripOrdered By: Anthony Rose on 77-67-3181Yrrykhkcpg Auto test strip Ql (U)NegativeNegativeMercy Health St. Charles HospitalUrine leukocyte esterase detection by automated test stripOrdered By: Anthony Rose on 03-11-2023 Leukocyte esterase Auto test strip Ql (U)2+NegativeMercy Health St. Charles HospitalUrobilinogen Auto test strip (U) [Mass/Vol]Ordered By: Anthony Rose on 61-01-0898Ufczcdgivkeu (U) [Mass/Vol]Normal mg/dLNormalMercy Health St. Charles HospitalpH Auto test strip (U)Ordered By: Anthony Rose on 04-07-1566fL (U)5.0 [pH]5.0-9.0[facility] HospitalMAGNESIUMon 02-23-2023 Magnesium [Mass/Vol]1.3 mg/dLCritically low1.8-2.4The [facility] ClinicComment on above:Performed By: #### MG #### [facility] [address] [place] [address] Dr. Anamika VargheseAlbumin [Mass/volume] in Serum or PlasmaOrdered By: Vinay Matta on 79-12-9812Ygxqjmj [Mass/Vol]3.6 g/dL3.2-5.5FMercy Health St. Rita's Medical CenterAlkaline phosphatase [Enzymatic activity/volume] in Serum or Plasma Ordered By: Vinay Bunting on 44-26-0207PQX [Catalytic activity/Vol]100 U/L32-[address] [facility] HospitalAspartate aminotransferase [Enzymatic activity/volume] in Serum or PlasmaOrdered By: Vinay Bunting on 25-43-2471LMV [Catalytic activity/Vol]31 U/F71-99BzhxyzwgaMercy Health St. Charles HospitalBasophils Auto (Bld) [#/Vol]Ordered By: Vinay Bunting on 34-99-7723Gnpsxtela (Bld) [#/Vol]0.0 10*3/uL0.0-0.2FMercy Health St. Rita's Medical CenterBasophils/100 WBC Auto (Bld)Ordered By: Vinay Bunting on 57-19-2408Uzogbcxbm/100 WBC (Bld)0.2 %. [facility] HospitalBilirubin.total [Mass/volume] in Serum or PlasmaOrdered By: Vinay Bunting on 14-34-9356Phqvhbchz [Mass/Vol]0.5 mg/dL 0.3-1.2FMercy Health St. Rita's Medical CenterCalcium [Mass/volume] in Serum or Plasma Ordered By: Vinay Bunting on 86-35-8091Yvkrqpd [Mass/Vol]8.2 mg/dL8.2-10.[address] [facility] HospitalCarbon dioxide, total [Moles/volume] in Serum or PlasmaOrdered By: Vinay Bunting on 09-20-9663AG1 [Moles/Vol]28.0 mmol/L 22.0-30.0[facility] HospitalChloride [Moles/volume] in Serum or PlasmaOrdered By: Vinay Bunting on 85-99-1612Hfmgfpro [Moles/Vol]101 mmol/L 95-114[facility] HospitalCholesterol [Mass/volume] in Serum or PlasmaOrdered By: Vinay Bunting on 94-14-2536Cuzocxghkxp [Mass/Vol]130 mg/dL 140-200[facility] Charles HospitalComment on above:Chol less than 200 mg/dl low riskChol 201-239 mg/dl borderline riskChol 240 mg/dl and greater high riskCholesterol in LDL Calc [Mass/Vol]Ordered By: Vinay Bunting on 01-16-2023 Cholesterol in LDL [Mass/Vol]74 mg/dL0-100[facility] Comment on above:LDL ATP III CLASSIFICATIONLDL less than 100 mg/dL OptimalLDL 100-129 mg/dL Near or above tmgctomJJI454-195 mg/dL Borderline highLDL 160-189 mg/dL HighLDL greater than 189 mg/dL Very highCholesterol in VLDL Calc [Mass/Vol]Ordered By: Vinay Bunting on 04-48-6909Jcknshxffwn in VLDL [Mass/Vol] 21 mg/dLMercy Health St. Charles HospitalCreatinine and Glomerular filtration rate.predicted panel (S/P/Bld)Ordered By: Vinay Bunting on 61-08-3410Rrufqagtdh [Mass/Vol]1.51 mg/dL0.44-1.03[facility] HospitalEosinophils Auto (Bld) [#/Vol]Ordered By: Vinay Bunting on 07-35-3137Odsjvuphkqw (Bld) [#/Vol] 0.1 10*3/uL0.0-0.45[facility] HospitalEosinophils/100 WBC Auto (Bld)Ordered By: Vinay Bunting on 61-69-1898Cerybzqrndq/100 WBC (Bld)2.2 %. [facility] HospitalErythrocyte distribution width Auto (RBC) [Ratio]Ordered By: Vinay Bunting on 83-81-3371Uwlruqlpnay distribution width (RBC) [Ratio]17.4 %11.9-15.3FMercy Health St. Rita's Medical CenterEstimated glomerular filtration rate (GFR) non- AmericanOrdered By: Vinay Bunhomer on 85-27-0271ZXV/1.73 sq M.predicted among non-blacks MDRD (S/P/Bld) [Vol rate/Area]34 mL/MinMercy Health St. Charles HospitalGlobulin Calc (S) [Mass/Vol] Ordered By: Vinay Bunting on 57-30-1142Ubrbunea (S) [Mass/Vol]2.3 g/dLMercy Health St[address] Charles HospitalGlucose [Mass/volume] in Serum or PlasmaOrdered By: Vinay Bunting on 21-92-7140Rsxijrb [Mass/Vol]162 mg/rY95-504NaiprxguqMercy Health St. Charles HospitalComment on above:ADA recommended reference rangeRandom Glucose Reference Range is dependent on time and content of last meal. Glucose of more than 200 mg/dL in a nonstressed, ambulatory subject supports the diagnosisof Diabetes Mellitus.Glucose mean value [Mass/volume] in Blood Estimated from glycated hemoglobinOrdered By: Vinay Matta on 99-47-2506Uhfwoou glucose Estimated from glycated hemoglobin (Bld) [Mass/Vol]171 mg/dLMercy Health St. Charles HospitalHematocrit Auto (Bld) [Volume fraction]Ordered By: Vinay Matta on 30-27-5250Ixkloxjrvb (Bld) [Volume fraction]31.4 %34.0-46.4FMercy Health St. Rita's Medical CenterHemoglobin A1c percentageOrdered By: Vinay Matta on 01-16-2023 HbA1c (Bld) [Mass fraction]7.6 %4.3-5.6FMercy Health St. Rita's Medical CenterComment on above:Increased risk for diabetes: 5.7 - 6.4diabetes: >6.4glycemic control for adults with diabetes: <7.0Hemoglobin [Mass/volume] in BloodOrdered By: Vinay Matta on 82-24-4016Zhnfvbgszy (Bld) [Mass/Vol]10.6 g/dL11.8-15.[address] [facility] HospitalLeukocytes [#/volume] corrected for nucleated erythrocytes in Blood by Automated counOrdered By: Vinay Matta on 01-16-2023 WBC corrected for nucl RBC Auto (Bld) [#/Vol]5.7 10*3/uL3.8-11.6FMercy Health St. Rita's Medical CenterLymphocytes Auto (Bld) [#/Vol]Ordered By: Vinay Matta on 33-97-7377Dexrhpgcjjx (Bld) [#/Vol]1.3 10*3/uL1.00-4.8[facility] HospitalLymphocytes/100 WBC Auto (Bld)Ordered By: Vinay Matta on 09-81-4049Lndxnhsawba/100 WBC (Bld)22.6 %.[facility] Auto (RBC) [Entitic mass]Ordered By: Vinay Matta on 01-91-4783WQZ (RBC) [Entitic mass]28.7 pg24.7-34.3FMercy Health St. Rita's Medical CenterMCHC Auto (RBC) [Mass/Vol]Ordered By: Vinay Matta on 57-94-7970IFRH (RBC) [Mass/Vol]33.7 g/dL 32.0-35.0[facility] HospitalMCV Auto (RBC) [Entitic vol]Ordered By: Vinay Bunting on 95-63-2099DGX (RBC) [Entitic vol]85.1 sN80-148GplboparuMercy Health St. Charles HospitalMonocytes Auto (Bld) [#/Vol]Ordered By: Vinay Bunting on 50-08-6526Pafjqhfrj (Bld) [#/Vol]0.3 10*3/uL0.0-0.8[facility] HospitalMonocytes/100 WBC Auto (Bld)Ordered By: Vinay Bunting on 01-16-2023 Monocytes/100 WBC (Bld)4.5 %.[facility] [address] [facility] HospitalNeutrophils Auto (Bld) [#/Vol]Ordered By: Vinay Bunting on 87-32-9550Rrcjtmiwpay (Bld) [#/Vol] 4.0 10*3/uL1.8-7.7FMercy Health St. Rita's Medical CenterNeutrophils/100 WBC Auto (Bld)Ordered By: Vinay Bunting on 80-04-2865Beflbxmbmdo/100 WBC (Bld)70.5 %. [facility] HospitalNo Panel InformationOrdered By: Vinay Matta on 90-75-0312Irctlzkby GFR ()41 mL/MinMercy Health St. Charles HospitalComment on above:GFR estimated reference range: According to KDOQI guidelines, <60 ml/min/1.73m2 is sufficient todiagnose a patient with chronic kidney disease.Pharmacy Creatinine Clearance (ChemN/[facility] HospitalNucleated erythrocytes [Presence] in Blood by Automated countOrdered By: Vinay Matta on 49-17-9630Yvxggtcda RBC Auto Ql (Bld)0.1 /100{WBC}0-0.[address] Charles HospitalPlatelet mean volume Auto (Bld) [Entitic vol] Ordered By: Vinay Matta on 55-80-3752Pdtdoemt mean volume (Bld) [Entitic vol] 7.4 fL6.3-10.7FMercy Health St. Rita's Medical CenterPlatelets Auto (Bld) [#/Vol] Ordered By: Vinay Bunting on 27-73-9898Eeshirlxb (Bld) [#/Vol]152 10*3/uL 150-450Mer[facility] [facility] HospitalPotassium [Moles/volume] in Serum or PlasmaOrdered By: Vinay Bunting on 77-45-7742Oroebkmpt [Moles/Vol]4.0 mmol/L 3.5-5.1FMercy Health St. Rita's Medical CenterProtein [Mass/volume] in Serum or Plasma Ordered By: Vinay Bunting on 72-53-0530Byvioyf [Mass/Vol]5.9 g/dL6.1-7.[address] [facility] HospitalRBC Auto (Bld) [#/Vol]Ordered By: Vinay Bunting on 23-00-4528CAC (Bld) [#/Vol]3.69 10*6/uL3.60-5.00[facility] Medical Centererum or plasma alanine aminotransferase measurement without P-5'-P (enzymatic activiOrdered By: Vinay Bunting on 17-22-8724SUB No additional P-5'-P [Catalytic activity/Vol]26 U/U60-14YvcsldbwhPremier Health Upper Valley Medical Centererum or plasma albumin/globulin mass ratioOrdered By: Vinay Bunting on 08-13-7940Tarkgcg/Globulin [Mass ratio]1.6 {ratio}[facility] Centererum or plasma anion gap determinationOrdered By: Vinay Bunting on 88-51-7261Jmepk gap [Moles/Vol]16.0 mmol/L6.0-15.0[facility] Centererum or plasma high density lipoprotein (HDL) cholesterol measurement Ordered By: Vinay Bunting on 86-53-7798Yzoxxiwjyyl in HDL [Mass/Vol]34 mg/dL 35-85[facility] HospitalComment on above:HDL CHOL ATP-III CLASSIFICATION Cardiovascular RiskHDL > or equal to 60 mg/dL LOWHDL < 40 mg/dL HIGHSerum or plasma total cholesterol/high density lipoprotein (HDL) cholesterol mass ratOrdered By: Vinay Bunting on 00-05-2807Cnduwjchkzp.total/Cholesterol in HDL [Mass ratio]3.8 {ratio}<5.0[facility] Centerodium [Moles/volume] in Serum or PlasmaOrdered By: Vinay Matta on 15-46-6258Gejpzi [Moles/Vol]141 mmol/L730-114JqdhyiklaMercy Health St. Charles HospitalTriglyceride [Mass/volume] in Serum or PlasmaOrdered By: Vinay Matta on 01-16-2023 Triglyceride [Mass/Vol]109 mg/uG72-485TonbxrjbiMercy Health St. Charles HospitalComment on above:TRIG ATP III CLASSIFICATIONTRIG less than 150 mg/dL NormalTRIG 150-199 mg/dL Borderline highTRIG 200-500 mg/dL High TRIG greater than 500 mg/dL Very highStandard traceable to the Center for Disease Conrtrol and Prevention (CDC) test method.Urate [Mass/volume] in Serum or PlasmaOrdered By: Vinay Matta on 13-09-5916Rpcpi [Mass/Vol]5.7 mg/dL2.6-7.2FMercy Health St. Rita's Medical CenterUrea nitrogen [Mass/volume] in Serum or PlasmaOrdered By: Vinay Matta on 43-63-7730Bors nitrogen [Mass/Vol]42 mg/dL9-23[facility] WBC Auto (Bld) [#/Vol]Ordered By: Vinay Matta on 37-13-9008SHM (Bld) [#/Vol] 5.7 10*3/uL3.8-11.6FMercy Health St. Rita's Medical CenterGlucose Glucometer (BldC) [Mass/Vol]Ordered By: Rafael Edouard on 06-56-3525Xbswuzf [Mass/Vol]165 mg/dL [facility] Charles HospitalComment on above:Random Glucose Reference Range is dependent on time and content of last meal. Glucose of more than 200 mg/dL in a nonstressed, ambulatory subject supports the diagnosis of Diabetes Mellitus.CBC W Auto Differential panel (Bld)on 66-77-4969Dkvnlaotz (Bld) [#/Vol] <0.11 k/uLUniversity Hospitals Health SystemBasophils/100 WBC (Bld)0.4 %[facility] Differential cell count method Nom (Bld)AutoCleveland ClinicEosinophils (Bld) [#/Vol]0.12 10*3/uL<0.46 k/uLCleUpper Valley Medical CenterEosinophils/100 WBC (Bld)2.2 % [facility] Health SystemErythrocyte distribution width (RBC) [Ratio]16.9 %High11.5 - 15.0 %[facility] Health SystemHematocrit (Bld) [Volume fraction]27.7 %Low36.0 - 46.0 % [facility] Health SystemHemoglobin (Bld) [Mass/Vol]8.5 g/dLLow11.5 - 15.5 g/dLUniversity Hospitals Health SystemImmature granulocytes (Bld) [#/Vol]<0.10 k/uLUniversity Hospitals Health SystemImmature granulocytes/100 WBC (Bld)0.2 %[facility] Health SystemLymphocytes (Bld) [#/Vol]1.07 10*3/uL1.00 - 4.00 k/uLUniversity Hospitals Health SystemLymphocytes/100 WBC (Bld)19.6 %[facility] HospitalH (RBC) [Entitic mass]25.3 pgLow26.0 - 34.0 pgClevelMille Lacs Health System Onamia HospitalHC (RBC) [Mass/Vol]30.7 g/dL30.5 - 36.0 g/dLTriHealth Bethesda North HospitalV (RBC) [Entitic vol]82.4 fL80.0 - 100.0 fLCleveland ClinicMonocytes (Bld) [#/Vol]0.25 10*3/uL<0.87 k/uL LariosUpper Valley Medical CenterMonocytes/100 WBC (Bld)4.6 %[facility] Health SystemNeutrophils (Bld) [#/Vol]3.99 10*3/uL1.45 - 7.50 k/uLUniversity Hospitals Health SystemNeutrophils/100 WBC (Bld)73.0 %[facility] Health SystemNucleated RBC (Bld) [#/Vol]<0.01 k/uLUniversity Hospitals Health SystemNucleated RBC/100 WBC (Bld) [Ratio]0.0 /100 WBCUniversity Hospitals Health SystemPlatelet mean volume (Bld) [Entitic vol]9.4 fL9.0 - 12.7 fLCleveland ClinicPlatelets (Bld) [#/Vol]170 10*3/uL150 - 400 k/uLCleveland ClinicRBC (Bld) [#/Vol]3.36 10*6/uLLow3.90 - 5.20 m/[facility] DaytonWBC (Bld) [#/Vol]5.46 10*3/uL3.70 - 11.00 k/[facility] DaytonComprehensive metabolic 2000 panelon 96-48-2427Exfltsj [Mass/Vol]4.3 g/dL 3.9 - 4.9 g/dLWarfield ClinicALP [Catalytic activity/Vol]120 U/L34 - 123 U/L [facility] ClinicALT [Catalytic activity/Vol]20 U/L7 - 38 U/LCleveland [facility] Anion gap [Moles/Vol]12 mmol/L9 - 18 mmol/LCleveland ClinicAST [Catalytic activity/Vol]28 U/L13 - 35 U/LCleveland [facility] HospitalBilirubin [Mass/Vol]0.2 mg/dL0.2 - 1.3 mg/dLWarfield ClinicCalcium [Mass/Vol]8.8 mg/dL8.5 - 10.2 mg/dLUniversity Hospitals Health SystemChloride [Moles/Vol]109 mmol/LHigh97 - 105 mmol/LCleveland ClinicCO2 [Moles/Vol]27 mmol/L22 - 30 mmol/LCleveland ClinicCreatinine [Mass/Vol]1.34 mg/dLHigh0.58 - 0.96 mg/dLUniversity Hospitals Health SystemEstimated Glomerular Filtration Rate42 mL/min/1.73mLow>=60 mL/min/1.73mCleveland [facility]leton [facility] HospitalGlucose [Mass/Vol]191 mg/dLHigh 74 - 99 mg/dLUniversity Hospitals Health SystemPotassium [Moles/Vol]3.7 mmol/L3.7 - 5.1 mmol/L [facility] ClinicProtein [Mass/Vol]6.8 g/dL6.3 - 8.0 g/dLWarfield ClinicSodium [Moles/Vol]148 mmol/SVsgi481 - 144 mmol/LCleveland [facility] HospitalUrea nitrogen [Mass/Vol]35 mg/dLHigh7 - 21 mg/dLUniversity Hospitals Health SystemLD LACTATE DEHYDROon 49-35-2155HBQ [Catalytic activity/Vol]163 U/L135 - 214 U/LCleveland ClinicRETIC COUNTon 26-04-1156Jlqghkdtqitge (Bld) [#/Vol]0.82560 10*3/uL0.018 - 0.100 M/uL [facility] ClinicReticulocytes (Bld) [#/Vol]on 15-63-4396Exsqnbxyykxoy/100 RBC (Bld)2.8 %High0.4 - 2.0 %[facility] Health SystemHEMATOLOGYOrdered By: SYSTEM SYSTEM on 88-90-2519Aqgwsjivu/100 WBC (Bld)0.3 %Normal0.0 - 2.0 %[facility] HemeAutoSS Basophils/Leukocytes Auto (Bld) [Pure # fraction]0.0 E9/LNormal0.0 - 0.2 E9/L [facility] HemeAutoSSEosinophils/100 WBC (Bld)2.3 %Normal0.0 - 8.0 %[facility] HemeAutoSS Eosinophils/Leukocytes Auto (Bld) [Pure # fraction]0.1 E9/LNormal0.0 - 0.5 E9/L [facility] HemeAutoSSLymphocytes/100 WBC (Bld)21.9 %Elehum88.0 - 50.0 %[facility] HemeAutoSS Lymphocytes/Leukocytes Auto (Bld) [Pure # fraction]1.3 E9/LNormal1.0 - 4.0 E9/L [facility] HemeAutoSSMonocytes/100 WBC (Bld)5.0 %Normal4.0 - 14.0 %[facility] HemeAutoSS Monocytes/Leukocytes Auto (Bld) [Pure # fraction]0.3 E9/LNormal0.2 - 1.0 E9/L [facility] HemeAutoSSNeutrophils/100 WBC (Bld)70.5 %Zytcfi06.0 - 75.0 %[facility] HemeAutoSS Neutrophils/Leukocytes Auto (Bld) [Pure # fraction]4.3 E9/LNormal2.0 - 7.5 E9/L [facility] HemeAutoSSHEMATOLOGYOrdered By: Tammy Green on 58-07-9718Kfzjczxvbgl distribution width (RBC) [Ratio]18.3 %High10.9 - 14.2 %[facility] HemeAutoSSHematocrit (Bld) [Volume fraction]27.6 %Low34.0 - 46.0 %[facility] HemeAutoSSHemoglobin (Bld) [Mass/Vol]9.1 g/dLLow12.0 - 16.0 gm/dLFTMC HemeAutoSSMCH (RBC) [Entitic mass] 25.6 pgLow27.0 - 34.0 pgFTMC HemeAutoSSMCHC (RBC) [Mass/Vol]33.1 g/hZBfpucg16.4 - 36.0 gm/dLFTMC HemeAutoSSMCV (RBC) [Entitic vol]77.5 fLLow80.0 - 100.0 fLFTMC HemeAutoSSPlatelet mean volume (Bld) [Entitic vol]7.2 fLNormal6.4 - 10.8 fLFTMC HemeAutoSSPlatelets (Bld) [#/Vol]189.0 E9/DKduaok569.0 - 500.0 E9/LFSAINT FRANC[facility] [place] HemeAutoSSRBC (Bld) [#/Vol]3.6 E12/LLow4.3 - 5.9 E12/LFSAINT FRANCIS [facility] [place] HemeAutoSSWBC corrected for nucl RBC Auto (Bld) [#/Vol]6.1 E9/LNormal4.0 - 11.0 E9/LFSAINT FRANCIS [facility] [place] HemeAutoSSBNPon 00-89-0453Aiqgjlaiiyd peptide B (Bld) [Mass/Vol]146.0 pg/mL Normal<=900.0The [facility] ClinicComment on above:Performed By: #### BNP #### [facility] [address] [place] [address] Dr. Anamika Brown AUTO DIFFon 96-66-9232TJAE #0.0 103/ulNormal0.0-0.1The [facility] ClinicComment on above:Performed By: #### CBC #### [facility] [address] [place] [address] Dr. Anamika Peñaphils/100 WBC (Bld)0.4 %Normal0.2-2.0The [facility] Comment on above:Performed By: #### CBC #### [facility] [address] [place] [address] Dr. Anamika Barth #0.2 103/ulNormal0.0-0.7The [facility] ClinicComment on above: Performed By: #### CBC #### [facility] [address] [address] [address] Anamika Holdenosinophils/100 WBC (Bld)3.6 %Normal0.9-7.0The [facility] Comment on above:Performed By: #### CBC #### [facility] [address] [place] [address] Dr. Anamika Holdenrythrocyte distribution width (RBC) [Ratio]16.4 %Critically high 11.0-15.0The [facility] ClinicComment on above:Performed By: #### CBC #### [facility] [address] [place] [address] Dr. Anamiak VargheseHematocrit (Bld) [Volume fraction]28.9 %Critically low36.0-48.0 The [facility] ClinicComment on above:Performed By: #### CBC #### [facility] [address] [place] [address] Dr. Anamika VargheseHemoglobin (Bld) [Mass/Vol]9.0 g/dLCritically low12.0-16.0The [facility] ClinicComment on above:Performed By: #### CBC #### [facility] [address] [place] [address] Dr. Anamika Keane #0.02 10e3/ulNormal0.00-0.03The [facility] ClinicComment on above:Performed By: #### CBC #### [facility] [address] [place] [address] Dr. Anamika Keane %0.3 %Normal0.0-0.5The [facility] ClinicComment on above: Performed By: #### CBC #### [facility] [address] [place] [address] Dr. Anamika Portillo #1.8 103/ulNormal1.2-3.8The [facility] ClinicComment on above:Performed By: #### CBC #### [facility] [address] [place] [address] Dr. Anamika Cohnmphocytes/100 WBC (Bld)26.1 %Xkdxwv17.5-60.0The [facility] ClinicComment on above:Performed By: #### CBC #### [facility] [address] [address] [address] Anamika Fuentes DIFF REQNONormalThe Cleveland ClinicComment on above: Performed By: #### CBC #### [facility] [address] [address] [address] Anamika Jean (RBC) [Entitic mass]25.8 pgCritically low26.7-34.0The [facility] ClinicComment on above:Performed By: #### CBC #### [facility] [address] [place] [address] Dr. Anamika Jean (RBC) [Mass/Vol]31.1 g/lPGnvxnm08.9-35.2The [facility] ClinicComment on above:Performed By: #### CBC #### [facility] [address] [place] [address] Dr. Anamika Jean (RBC) [Entitic vol]82.8 iTJckkfh80.0-99.0The [facility] ClinicComment on above:Performed By: #### CBC #### [facility] [address] [place] [address] Dr. Anamika Gerber #0.3 103/ulNormal0.3-0.8The [facility] ClinicComment on above:Performed By: #### CBC #### [facility] [address] [place] [address] Dr. Anamika Beaulieuocytes/100 WBC (Bld)5.0 %Normal1.7-12.0The [facility] Comment on above:Performed By: #### CBC #### [facility] [address] [address] [address] Anamika Rowe #4.4 103/ulNormal1.4-6.5The [facility] ClinicComment on above:Performed By: #### CBC #### [facility] [address] [place] [address] Dr. Anamika Bautistautrophils/100 WBC (Bld)64.6 %Phgzbv07.0-75.0The [facility] on above:Performed By: #### CBC #### [facility] [address] [address] [address] Anamika Millslet mean volume (Bld) [Entitic vol]8.7 fLCritically low 9.5-13.5The [facility] on above:Performed By: #### CBC #### [facility] [address] [address] [address] Anamika VarghesePLT188 103/kzUznjko378-950Lmm [facility] on above: Performed By: #### CBC #### [facility] [address] [place] [address] Dr. Anamika VargheseRBC3.49 106/ulCritically low4.20-5.40The [facility] on above:Performed By: #### CBC #### [facility] [address] [place] [address] Dr. Anamika VargheseWBC6.7 103/ulNormal4.0-11.0The [facility] on above: Performed By: #### CBC #### [facility] [address] [place] [address] Dr. Anamika VargheseGLYCOHEMOGLOBIN A1Con 81-55-9459TPC RECOMMENDATIONSEE BELOWNormal [facility] on above:Result Comment: ADA RECOMMENDED LIMIT 4.0 - 6.0 ADA THERAPEUTIC TARGET < 7.0 ACTION SUGGESTED > 7.0Performed By: #### FETIBC FERR, B12FOL #### [facility] [address] [place] [address] Dr. Anamika VargheseGlucose [Mass/Vol]166 mg/dLNormalThe [facility] on above:Performed By: #### FETIBC, FERR, B12FOL #### [facility] [address] [place] [address] Dr. Anamika VargheseHbA1c (Bld) [Mass fraction]7.4 %Critically high4.5-6.2The [facility] on above:Performed By: #### FETIBC, FERR, B12FOL #### [facility] [address] [address] [address] Anamika RossID PROFILEon 37-98-8422RWHR-HDL RATIO NORMSBucyrus Community HospitalComment on above:Result Comment: 3.3 - 4.4 LOW RISK 4.4 - 7.1 AVERAGE RISK 7.1 - 11.0 MODERATE RISK >11.0 HIGH RISKPerformed By: #### LIPID, CMP #### [facility] [address] [address] [address] Anamika VargheseCholesterol [Mass/Vol]118 mg/dLNormal<=200The [facility] Comment on above:Performed By: #### LIPID, CMP #### [facility] [address] [address] [address] Anamika VargheseCholesterol in HDL [Mass/Vol]41 mg/hDFbxuzq82-85QkfUc Medical CenterComment on above:Performed By: #### LIPID, CMP #### [facility] [address] [place] [address] Dr. Anamika VargheseCholesterol in LDL [Mass/Vol]60.4 mg/dLHolmes County Joel Pomerene Memorial HospitalComment on above:Performed By: #### LIPID, CMP #### [facility] [address] [place] [address] Dr. Anamika Dejesusestertomi.total/Cholesterol in HDL [Mass ratio]2.9 {ratio} NormalUc Medical CenterComment on above:Performed By: #### LIPID, CMP #### [facility] [address] [place] [address] Dr. Anamika MontanoL NORMAL> or = 60 mg/dl - LOW CARDIOVASCULAR RISK <40 mg/dl - HIGH CARDIOVASCULAR RISKHolmes County Joel Pomerene Memorial HospitalComment on above:Performed By: #### LIPID, CMP #### [facility] [address] [place] [address] Dr. Anamika VargheseLDL CALC NORMALSEE [facility] County HospitalComment on above:Result Comment: <100 mg/dl OPTIMAL 100 - 129 mg/dl NEAR OR ABOVE OPTIMAL 130 - 159 mg/dl BORDERLINE HIGH 160 - 189 mg/dl HIGH >190 mg/dl VERY HIGH Performed By: #### LIPID, CMP #### [facility] [address] [place] [address] Dr. Anamika VargheseTriglyceride [Mass/Vol]83 mg/dLNormal<=150[facility] Comment on above:Performed By: #### LIPID, CMP #### [facility] [address] [place] [address] Dr. Anamika GamboaLDL CALC16.6 mg/dLNoGenesis HospitalComment on above: Performed By: #### LIPID, CMP #### [facility] [address] [place] [address] Dr. Anamika HammROALGm CREAT RATIO RANDOMon 67-15-4034tWGH<1.3Normal<=30.0The [facility] ClinicComment on above:Performed By: #### FETIBC, FERR, B12FOL #### [facility] [address] [place] [address] Dr. Anamika Maki CR RATIO22.0 mg/gNormal0.0-29.9The [facility] ClinicComment on above:Performed By: #### FETIBC, FERR, B12FOL #### [facility] [address] [place] [address] Dr. Anamika Maki CR RATIO RANGESEE BELOWNoGenesis HospitalComment on above:Result Comment: NO MICROALBUMINURIA 0-29 MG/G CLINICAL MICROALBUMINURIA 30-300 MG/G MACROALBUMINURIA >300 MG/GPerformed By: #### FETIBC, FERR, B12FOL #### [facility] [address] [place] [address] Dr. Anamika Montiel CREAT59.04 mg/aUErwrwe16.00-300.00[facility] Comment on above:Performed By: #### FETIBC, FERR, B12FOL #### [facility] [address] [place] [address] Dr. Anamika VarghesePROReinaldo 14(COMP METB)on 95-30-4096Enntneq [Mass/Vol]3.6 g/dLNormal 3.4-5.0The [facility] ClinicComment on above:Performed By: #### LIPID, CMP #### [facility] [address] [place] [address] Dr. Anamika VargheseAlbumin/Globulin [Mass ratio]1.0 {ratio}NormalThe [facility] ClinicComment on above:Performed By: #### LIPID, CMP #### [facility] [address] [address] [address] Anamika McqueenP [Catalytic activity/Vol]128 U/LCritically hwlk14-685Knx [facility] ClinicComment on above:Performed By: #### LIPID, CMP #### [facility] [address] [place] [address] Dr. Anamika Cook [Catalytic activity/Vol]30 U/PWfgoiu82-28Ekj [facility] ClinicComment on above:Performed By: #### LIPID, CMP #### [facility] [address] [place] [address] Dr. Anamika Winn gap [Moles/Vol]14.9 mmol/LNormalThe [facility] Comment on above:Performed By: #### LIPID, CMP #### [facility] [address] [place] [address] Dr. Anamika Barber [Catalytic activity/Vol]23 U/WToflzf13-75Voz [facility] ClinicComment on above:Performed By: #### LIPID, CMP #### [facility] [address] [place] [address] Dr. Anamika VargheseBilirubin [Mass/Vol]0.3 mg/dLNormal0.2-1.0The [facility] Comment on above:Performed By: #### LIPID, CMP #### [facility] [address] [place] [address] Dr. Anamika VargheseCalcium [Mass/Vol]8.6 mg/dLNormal8.5-10.1The [facility] Comment on above:Performed By: #### LIPID, CMP #### [facility] [address] [place] [address] Dr. Anamika VargheseChloride [Moles/Vol]105 mmol/BGzetue94-325Nag [facility] Comment on above:Performed By: #### LIPID, CMP #### [facility] [address] [place] [address] Dr. Anamika VargheseCO2 [Moles/Vol]28.1 mmol/MXcxxcq87.0-32.0The [facility] Comment on above:Performed By: #### LIPID, CMP #### [facility] [address] [place] [address] Dr. Anamika VargheseCreatinine [Mass/Vol]1.58 mg/dLCritically high0.55-1.02Uc Medical CenterComment on above:Performed By: #### LIPID, CMP #### [facility] [address] [place] [address] Dr. Anamika HoldenGFR-AF ZKCYCEZA32 mL/min/1.96i4Icfcdntnxz low>=60The [facility] ClinicComment on above:Performed By: #### LIPID, CMP #### [facility] [address] [place] [address] Dr. Anamika HoldenGFR-NON AF IQMSCZSB52 mL/min/1.68b6Vuqytqbdjm low>=60The [facility] ClinicComment on above:Performed By: #### LIPID, CMP #### [facility] [address] [place] [address] Dr. Anamika VargheseGlobulin (S) [Mass/Vol]3.6 g/dLNormalThe [facility] ClinicComment on above:Performed By: #### LIPID, CMP #### [facility] [address] [place] [address] Dr. Anamika VargheseGlucose [Mass/Vol]130 mg/dLCritically lbil03-044MigUc Medical CenterComment on above:Performed By: #### LIPID, CMP #### [facility] [address] [place] [address] Dr. Anamika VarghesePotassium [Moles/Vol]4.0 mmol/LNormal3.5-5.1The [facility] Comment on above:Performed By: #### LIPID, CMP #### [facility] [address] [address] [address] Anamika VargheseProtein [Mass/Vol]7.2 g/dLNormal6.4-8.2The [facility] Comment on above:Performed By: #### LIPID, CMP #### [facility] [address] [address] [address] Anamika VargheseSodium [Moles/Vol]144 mmol/DVgbrsa150-790Bda [facility] Comment on above:Performed By: #### LIPID, CMP #### [facility] [address] [address] [address] Anamika VargheseUrea nitrogen [Mass/Vol]53.0 mg/dLCritically high7.0-18.0The [facility] ClinicComment on above:Performed By: #### LIPID, CMP #### [facility] [address] [place] [address] Dr. Anamika VargheseUrea nitrogen/Creatinine [Mass ratio]33.5 mg/mgNormalThe [facility] ClinicComment on above:Performed By: #### LIPID, CMP #### [facility] [address] [place] [address] Dr. Anamika VargheseCreatinine and Glomerular filtration rate.predicted panel (S/P/Bld)Ordered By: Anand Yusuf on 41-15-0639Ypxaddxfym [Mass/Vol]1.41 mg/dL 0.44-1.03[facility] HospitalEstimated glomerular filtration rate (GFR) non- AmericanOrdered By: Anand Yusuf on 34-88-5631MMI/1.73 sq M.predicted among non-blacks MDRD (S/P/Bld) [Vol rate/Area]37 mL/MinMercy Health St. Charles HospitalNo Panel InformationOrdered By: Anand Yusuf on 67-14-7771Zqvrxkdxa GFR ()44 mL/MinMercy Health St. Charles HospitalComment on above:GFR estimated reference range: According to KDOQI guidelines, <60 ml/min/1.73m2 is sufficient todiagnose a patient with chronic kidney disease.Pharmacy Creatinine Clearance ([facility] Hospitalerum or plasma anion gap determinationOrdered By: Anand Yusuf on 54-87-4592Rfqdu gap [Moles/Vol]17.5 mmol/L6.0-15.0[facility] Centererum or plasma calcium measurement (mass/volume)Ordered By: Anand Yusuf on 01-06-0498Fqnpvhg [Mass/Vol]8.5 mg/dL8.2-10.2FUniversity Hospitals Cleveland Medical Centererum or plasma chloride measurement (moles/volume)Ordered By: Anand Yusuf on 07-22-9764Ydlwrzzr [Moles/Vol]105 mmol/U68-837YvppdhrprPremier Health Upper Valley Medical Centererum or plasma glucose measurement (mass/volume)Ordered By: Anand Yusuf on 16-19-3163Atdirjf [Mass/Vol]97 mg/sQ50-826XiwzshuxeMercy Health St. Charles HospitalComment on above:ADA recommended reference range Random Glucose [...] potassium measurement (moles/volume)Ordered By: Anand Yusuf on 96-15-4736Obghncxgc [Moles/Vol]4.3 mmol/L3.5-5.1FUniversity Hospitals Cleveland Medical Centererum or plasma sodium measurement (moles/volume)Ordered By: Anand Yusuf on 72-09-9771Hhinbx [Moles/Vol]141 mmol/K738-842HgaaxjwdlPremier Health Upper Valley Medical Centererum or plasma total carbon dioxide measurement (moles/volume)Ordered By: Anand Yusuf on 26-52-1786AY4 [Moles/Vol]22.8 mmol/L 22.0-30.0[facility] Centererum or plasma urea nitrogen measurement (mass/volume)Ordered By: Anand Yusuf on 76-43-6216Cimb nitrogen [Mass/Vol]37 mg/dL9-23[facility] HospitalUrine culture routine Ordered By: Anand Yusuf on 44-11-3735Pxrdvogh identified Cx Nom (U)Escherichia coliMercy Health St. Charles HospitalAutomated erythrocytes count in urine sediment (number/area)Ordered By: Anand Yusuf on 08-72-0695MNG Auto (Urine sed) [#/Area]0-1 [HPF]0-4FMercy Health St. Rita's Medical CenterAutomated leukocytes count in urine sediment (number/area)Ordered By: Anand Yusuf on 75-26-2686UYQ Auto (Urine sed) [#/Area]5-9 [HPF]0-4FMercy Health St. Rita's Medical CenterBasophils Auto (Bld) [#/Vol]Ordered By: Anand Yusuf on 06-64-3767Avbimdzul (Bld) [#/Vol]0.1 10*3/uL0.0-0.2FMercy Health St. Rita's Medical CenterBasophils/100 WBC Auto (Bld) Ordered By: Anand Yusuf on 69-36-9289Hlzqugogg/100 WBC (Bld)0.[address] [facility] HospitalBilirubin Test strip Ql (U)Ordered By: Anand Yusuf on 55-36-5201Hchzeyfhz Ql (U)NegativeNegativeMercy Health St. Charles HospitalBlood hemoglobin measurement (mass/volume)Ordered By: Anand Yusuf on 07-22-2022 Hemoglobin (Bld) [Mass/Vol]9.6 g/dL11.8-15.4FMercy Health St. Rita's Medical Center Blood leukocytes automated count (number/volume)Ordered By: Anand Yusuf on 22-37-7020FIA (Bld) [#/Vol]11.6 10*3/uL4.5-11.0[facility] Body fluid albumin measurement (mass/volume)Ordered By: Anand Yusuf on 47-81-8251Yqmixxi (Body fld) [Mass/Vol]3.0 g/dL3.2-5.5FMercy Health St. Rita's Medical CenterColor Auto (U)Ordered By: Anand Yusuf on 57-74-4732Ryeqj (U)YellowYellow [facility] HospitalCreatinine and Glomerular filtration rate.predicted panel (S/P/Bld)Ordered By: Anand Yusuf on 98-29-2340Xhjncgahvv [Mass/Vol]1.63 mg/dL0.44-1.03[facility] HospitalEosinophils Auto (Bld) [#/Vol]Ordered By: Anand Yusuf on 49-17-0726Kcpbbrtqhjw (Bld) [#/Vol]0.1 10*3/uL0.0-0.45[facility] HospitalEosinophils/100 WBC Auto (Bld) Ordered By: Anand Yusuf on 02-73-4872Sbbkjaxbpip/100 WBC (Bld)1.0 %.[facility] HospitalErythrocyte distribution width Auto (RBC) [Ratio]Ordered By: Anand Yusuf on 04-32-1027Werydjjyyqt distribution width (RBC) [Ratio]17.0 % 11.9-15.3FMercy Health St. Rita's Medical CenterEstimated glomerular filtration rate (GFR) non- AmericanOrdered By: Anand Yusuf on 89-84-7754EJC/1.73 sq M.predicted among non-blacks MDRD (S/P/Bld) [Vol rate/Area]31 mL/MinMercy Health St. Charles HospitalGlobulin Calc (S) [Mass/Vol]Ordered By: Anand Yusuf on 81-15-6045Pgowxihs (S) [Mass/Vol]3.3 g/dLMercy Health St. Charles Hospital Hematocrit Auto (Bld) [Volume fraction]Ordered By: Anand Yusuf on 07-22-2022 Hematocrit (Bld) [Volume fraction]28.6 %34.0-46.4FMercy Health St. Rita's Medical CenterKetones Auto test strip (U) [Mass/Vol]Ordered By: Anand Yuusf on 33-21-1520Tggqcnv (U) [Mass/Vol]TraceNegativeMercy Health St. Charles Hospital Laboratory - Chemistry and Chemistry - challengeOrdered By: Anand Yusuf on 37-75-5821Nimcssthx [Mass/Vol]1.4 mg/dL1.6-2.6FMercy Health St. Rita's Medical Center Natriuretic peptide B (Bld) [Mass/Vol]44.0 pg/mL5-100[facility] HospitalLaboratory - Hematology and Cell countsOrdered By: Anand Yusuf on 24-59-2899Iagqqvgoq RBC/100 WBC (Bld) [Ratio]0.0 %0-0.5FMercy Health St. Rita's Medical CenterLaboratory - UrinalysisOrdered By: Anand Yusuf on 07-22-2022 Hyaline casts LM Ql (Urine sed)0-8 [LPF]0-8[facility] Lymphocytes Auto (Bld) [#/Vol]Ordered By: Anand Yusuf on 00-79-9051Kfmwdkipcdi (Bld) [#/Vol]1.5 10*3/uL1.00-4.8[facility] HospitalLymphocytes/100 WBC Auto (Bld)Ordered By: Anand Yusuf on 17-58-7541Oimlgarcsru/100 WBC (Bld) 13.0 %.[facility] ClinicH Auto (RBC) [Entitic mass]Ordered By: Anand Yusuf on 44-12-3967ZLB (RBC) [Entitic mass]27.3 pg24.7-34.3FMercy Health St. Rita's Medical CenterMCHC Auto (RBC) [Mass/Vol]Ordered By: Anand Yusuf on 51-04-3962ZLKO (RBC) [Mass/Vol]33.5 g/dL32.0-35.0[facility] HospitalMCV Auto (RBC) [Entitic vol]Ordered By: Anand Yusuf on 26-09-6395YBD (RBC) [Entitic vol]81.3 gC39-690YctbnixjxMercy Health St. Charles HospitalMonocytes Auto (Bld) [#/Vol]Ordered By: Anand Yusuf on 85-23-1856Ipxyeoayy (Bld) [#/Vol]0.5 10*3/uL0.0-0.8[facility] HospitalMonocytes/100 WBC Auto (Bld) Ordered By: Anand Yusuf on 41-12-6685Evrrreenz/100 WBC (Bld)4.1 %.[facility] HospitalNeutrophils Auto (Bld) [#/Vol]Ordered By: Anand Yusuf on 68-81-4812Nghxaewyjox (Bld) [#/Vol]9.5 10*3/uL1.8-7.7FMercy Health St. Rita's Medical CenterNeutrophils/100 WBC Auto (Bld)Ordered By: Anand Yusuf on 07-22-2022 Neutrophils/100 WBC (Bld)81.4 %.[facility] HospitalNitrite Test strip Ql (U)Ordered By: Anand Yusuf on 33-59-0692Lrbohvn Ql (U)NegativeNegative [facility] HospitalNo Panel InformationOrdered By: Anand Yusuf on 62-77-5270Qbamxesfi GFR ()37 mL/MinMercy Health St. Charles HospitalComment on above:GFR estimated reference range: According to KDOQI guidelines, <60 ml/min/1.73m2 is sufficient todiagnose a patient with chronic kidney disease.Pharmacy Creatinine Clearance (Chem34.96[facility] HospitalPlatelet mean volume Auto (Bld) [Entitic vol]Ordered By: Anand Yusuf on 63-31-1207Hxguniib mean volume (Bld) [Entitic vol]7.3 fL6.3-10.[address] [facility] HospitalPlatelets Auto (Bld) [#/Vol]Ordered By: Anand Yusuf on 13-05-0584Bnbmbenua (Bld) [#/Vol]253 10*3/zZ141-663DcadpfxhmMercy Health St. Charles HospitalProtein Auto test strip (U) [Mass/Vol]Ordered By: Anand Yusuf on 75-04-3768Kpnhnsn (U) [Mass/Vol]NegativeNegativeMercy Health St. Charles HospitalProtein [Mass/volume] in Serum or PlasmaOrdered By: Anand Yusuf on 40-95-4645Qckzthc [Mass/Vol]6.3 g/dL6.1-7.9[facility] HospitalRBC Auto (Bld) [#/Vol]Ordered By: Anand Yusuf on 25-24-1949DLJ (Bld) [#/Vol]3.51 10*6/uL3.60-5.00[facility] Centererum or plasma alanine aminotransferase measurement without P-5'-P (enzymatic activiOrdered By: Anand Yuusf on 48-28-6009REC No additional P-5'-P [Catalytic activity/Vol]29 U/L10-60 [facility] Centererum or plasma albumin/globulin mass ratio Ordered By: Anand Yusuf on 14-04-7879Svriipx/Globulin [Mass ratio]0.9 {ratio} [facility] Centererum or plasma alkaline phosphatase measurement (enzymatic activity/volume)Ordered By: Anand Yusuf on 40-32-7170CFE [Catalytic activity/Vol]99 U/I32-97FzhfuslznPremier Health Upper Valley Medical Centererum or plasma anion gap determinationOrdered By: Anand Yusuf on 23-29-4733Dqtkw gap [Moles/Vol]14.3 mmol/L6.0-15.0[facility] Centererum or plasma aspartate aminotransferase measurement (enzymatic activity/volume)Ordered By: Anand Yusuf on 29-47-2634ATK [Catalytic activity/Vol]31 U/A23-72GqkiypmgfPremier Health [facility] Medical Centererum or plasma calcium measurement (mass/volume)Ordered By: Anand Yusuf on 22-60-0045Qvartqw [Mass/Vol]9.0 mg/dL8.2-10.2FUniversity Hospitals Cleveland Medical Centererum or plasma chloride measurement (moles/volume) Ordered By: Anand Yusuf on 76-90-9254Ujtyqbav [Moles/Vol]107 mmol/L95-114 [facility] Centererum or plasma glucose measurement (mass/volume)Ordered By: Anand Yusuf on 39-15-2460Groarql [Mass/Vol]168 mg/dL 70-100[facility] HospitalComment on above:ADA recommended reference range Random Glucose [...] potassium measurement (moles/volume)Ordered By: Anand Yusuf on 94-35-6987Mhtcaehif [Moles/Vol]5.4 mmol/L3.5-5.1FUniversity Hospitals Cleveland Medical Centererum or plasma sodium measurement (moles/volume)Ordered By: Anand Yusuf on 98-45-1045Rrwjwd [Moles/Vol]140 mmol/Y270-827FtobdjcnzPremier Health [facility] Medical Centererum or plasma total bilirubin measurement (mass/volume) Ordered By: Anand Yusuf on 34-93-8142Vmljxcehj [Mass/Vol]0.6 mg/dL0.3-1.2 [facility] Centererum or plasma total carbon dioxide measurement (moles/volume)Ordered By: Anand Yusuf on 62-96-7488RV4 [Moles/Vol] 24.1 mmol/L22.0-30.0[facility] Centererum or plasma urea nitrogen measurement (mass/volume)Ordered By: Anand Yusuf on 72-11-1958Mvpf nitrogen [Mass/Vol]53 mg/dL9-[facility] Centerpecific gravity Auto test strip (U) [Rel density]Ordered By: Anand Yusuf on 12-79-9717Xpsnztwp gravity (U) [Rel density]1.0191.001-1.030[facility] Squamous epithelial cells detection in urine sediment by light microscopyOrdered By: Anand Yusuf on 14-22-9396Kcphzrekbl cells.squamous LM Ql (Urine sed)1-2 [HPF]0-2FMercy Health St. Rita's Medical CenterTroponin I.cardiac [Mass/volume] in Serum or Plasma by High sensitivity methodOrdered By: Anand Yusuf on 07-22-2022 Troponin I.cardiac High sensitivity method [Mass/Vol]4 pg/mL0-15[facility] HospitalUrine bacteria detection by automated methodOrdered By: Anand Yusuf on 18-13-2123Hunzxfwu Auto Ql (U)4+None SeenMercy Health St. Charles HospitalUrine clarity by refractometry automatedOrdered By: Anand Yusuf on 77-24-8707Bbckczv Refractometry automated (U)CloudyCleCleveland Clinic Marymount HospitalUrine glucose measurement by automated test strip (mass/volume) Ordered By: Anand Yusuf on 08-72-9949Lukkkeq Auto test strip (U) [Mass/Vol] Normal mg/dLThe University of Toledo Medical CenterUrine hemoglobin detection by automated test stripOrdered By: Anand Yusuf on 04-21-2186Jsxowmotkk Auto test strip Ql (U)NegativeNegativeMercy Health St. Charles HospitalUrine lactic acid measurementOrdered By: Anand Yusuf on 96-71-8894Qhowzxl (U) [Moles/Vol]1.9 mmol/L0.5-2.2FMercy Health St. Rita's Medical CenterUrine leukocyte esterase detection by automated test stripOrdered By: Anand Yusuf on 79-85-9334Vuufdqzup esterase Auto test strip Ql (U)2+NegativeMercy Health St. Charles HospitalUrobilinogen Auto test strip (U) [Mass/Vol]Ordered By: Anand Yusuf on 50-61-0470Tneihnmgoife (U) [Mass/Vol]Normal mg/dLNoAultman Orrville HospitalpH Auto test strip (U)Ordered By: Anand Yusuf on 65-85-1086qE (U)5.0 [pH]5.0-9.0[facility] HospitalFERRITINon 56-90-1158Oxgrwdbm [Mass/Vol]39.0 ng/mLNormal 8.0-252.0The [facility] ClinicComment on above:Performed By: #### FETIBC, FERR, B12FOL #### [facility] [address] [place] [address] Dr. Anamika Raygoza AND TIBCon 06-24-2022% DLDZNKRCDS20.1 %NormalThe Cleveland ClinicComment on above:Performed By: #### FETIBC FERR, B12FOL #### [facility] [address] [place] [address] Dr. Anamika Raygoza [Mass/Vol]52.0 ug/iLQmhcuq03.0-170.0[facility] Comment on above:Performed By: #### FETIBC FERR, B12FOL #### [facility] [address] [place] [address] Dr. Anamika Singh CPMQDE440.0 ug/bGLuqubw122.0-450.0[facility] Comment on above:Performed By: #### FETIBC FERR, B12FOL #### [facility] [address] [place] [address] Dr. Anamika Nolan PROFILEon 75-25-0733Albcflz [Mass/Vol]3.5 g/dLNormal3.4-5.0 The [facility] ClinicComment on above:Performed By: #### LIVER #### [facility] [address] [place] [address] Dr. Anamika VargheseAlbumin/Globulin [Mass ratio]1.2 {ratio}NormalThe Cleveland ClinicComment on above:Performed By: #### LIVER #### [facility] [address] [place] [address] Dr. Anamika Simon [Catalytic activity/Vol]117 U/LCritically aviy75-553Bdq [facility] ClinicComment on above:Performed By: #### LIVER #### [facility] [address] [address] [address] Anamika Cook [Catalytic activity/Vol]30 U/WTomvwr74-98Rao [facility] ClinicComment on above:Performed By: #### LIVER #### [facility] [address] [address] [address] Anamika VargheseAST [Catalytic activity/Vol]25 U/JEfgvdx08-15Jmf [facility] ClinicComment on above:Performed By: #### LIVER #### [facility] [address] [address] [address] Anamika TorresI, CONJUGATED0.2 mg/dLNormal0.0-0.2[facility] Comment on above:Performed By: #### LIVER #### [facility] [address] [address] [address] Anamika Torresirubin [Mass/Vol]0.4 mg/dLNormal0.2-1.0[facility] Comment on above:Performed By: #### LIVER #### [facility] [address] [address] [address] Anamika VargheseGlobulin (S) [Mass/Vol]3.0 g/dLNormalThe [facility] ClinicComment on above:Performed By: #### LIVER #### [facility] [address] [address] [address] Anamika VargheseProtein [Mass/Vol]6.5 g/dLNormal6.4-8.2[facility] Comment on above:Performed By: #### LIVER #### [facility] [address] [address] [address] Anamika VargheseRETICULOCYTEon 48-74-0663BGLWH6.27 %Critically high0.60-3.10The [facility] ClinicComment on above:Performed By: #### FETIBC, FERR, B12FOL #### [facility] [address] [address] [address] Anamika Conley B12 AND FOLATEon 38-82-4139Ozmcubled (Vitamin B12) [Mass/Vol] 206.0 pg/pIHirvwd251.0-986.0The [facility] ClinicComment on above:Performed By: #### FETIBC, FERR, B12FOL #### [facility] [address] [address] [address] Anamika VargheseFOLATE20.20 ng/mLNormal8.60-58.90The [facility] ClinicComment on above:Performed By: #### FETIBC, FERR, B12FOL #### [facility] [address] [place], [place] [address] Dr. Anamika VargheseBasophils Auto (Bld) [#/Vol]Ordered By: Vinay Matta on 86-65-1229Ayrpnswcw (Bld) [#/Vol]0.0 10*3/uL0.0-0.2FMercy Health St. Rita's Medical CenterBasophils/100 WBC Auto (Bld)Ordered By: Vinay Bunting on 05-21-2022 Basophils/100 WBC (Bld)0.4 %.[facility] HospitalBlood hemoglobin measurement (mass/volume)Ordered By: Vinay Matta on 00-01-9815Rsbigsiuse (Bld) [Mass/Vol]9.7 g/dL11.8-15.4FMercy Health St. Rita's Medical CenterBlood leukocytes automated count (number/volume)Ordered By: Vinay Escalerating on 24-65-0177SIQ (Bld) [#/Vol]3.7 10*3/uL4.5-11.0[facility] Body fluid albumin measurement (mass/volume)Ordered By: Vinay Matta on 12-98-4738Lroxpvk (Body fld) [Mass/Vol]3.3 g/dL3.2-5.5FMercy Health St. Rita's Medical CenterCholesterol [Mass/volume] in Serum or PlasmaOrdered By: Vinay Bunting on 59-47-8460Fqdoenwqhuw [Mass/Vol]122 mg/cH333-661FxfnfkwnvMercy Health St. Charles HospitalComment on above:Chol less than 200 mg/dl low risk Chol 201-239 mg/dl borderline risk Chol 240 mg/dl and greater high riskCholesterol in LDL Calc [Mass/Vol]Ordered By: Vinay Bunting on 67-86-7289Hcafmzczjtb in LDL [Mass/Vol]67 mg/dL0-[address] [facility] HospitalComment on above:LDL ATP III CLASSIFICATION LDL less than 100 mg/dL Optimal LDL 100-129 mg/dL Near or above optimal LDL 130-159 mg/dL Borderline high LDL 160-189 mg/dL High LDL greater than 189 mg/dL Very highCholesterol in VLDL Calc [Mass/Vol]Ordered By: Vinay Bunting on 54-30-6747Uahrimcxhjh in VLDL [Mass/Vol]13 mg/dLMercy Health St. Charles HospitalCreatinine and Glomerular filtration rate.predicted panel (S/P/Bld)Ordered By: Vinay Bunting on 62-47-6400Gvmxxunlxn [Mass/Vol]1.15 mg/dL0.44-1.03[facility] HospitalEosinophils Auto (Bld) [#/Vol] Ordered By: Vinay Bunting on 82-88-7552Gqeungdeflw (Bld) [#/Vol]0.1 10*3/uL 0.0-0.45[facility] HospitalEosinophils/100 WBC Auto (Bld)Ordered By: Vinay Bunting on 88-76-0127Jthhdtjucyr/100 WBC (Bld)3.1 %.[facility] HospitalErythrocyte distribution width Auto (RBC) [Ratio]Ordered By: Vinay Bunting on 99-20-1533Slxvjgsubuz distribution width (RBC) [Ratio]16.3 %11.9-15.3FMercy Health St. Rita's Medical CenterErythrocyte sedimentation rate by Photometric methodOrdered By: Vinay Bunting on 38-51-2345WOG Photometric method (Bld) [Velocity]9 mm/hr0-29[facility] HospitalEstimated glomerular filtration rate (GFR) non- AmericanOrdered By: Vinay Bunting on 48-29-3792FYR/1.73 sq M.predicted among non-blacks MDRD (S/P/Bld) [Vol rate/Area]46 mL/MinMercy Health St. Charles HospitalGlobulin Calc (S) [Mass/Vol] Ordered By: Vinay Bunting on 12-64-0635Duofxrsq (S) [Mass/Vol]2.2 g/dLMercy Health St. Charles HospitalGlucose mean value [Mass/volume] in Blood Estimated from glycated hemoglobinOrdered By: Vinay Bunting on 12-16-7095Mvaxbmt glucose Estimated from glycated hemoglobin (Bld) [Mass/Vol]166 mg/dLMercy Health St. Charles HospitalHematocrit Auto (Bld) [Volume fraction]Ordered By: Vinay Bunting on 71-61-4707Xukjmuidof (Bld) [Volume fraction]29.1 %34.0-46.4FMercy Health St. Rita's Medical CenterHemoglobin A1c percentageOrdered By: Vinay Bunting on 05-21-2022 HbA1c (Bld) [Mass fraction]7.4 %4.3-5.6FMercy Health St. Rita's Medical CenterComment on above:Increased risk for diabetes: 5.7 - 6.4 diabetes: >6.4 glycemic control for adults with diabetes: <7.0Laboratory - Hematology and Cell countsOrdered By: Vinay Bunting on 52-22-9703Eokfdwiau RBC/100 WBC (Bld) [Ratio]0.1 %0-0.5FMercy Health St. Rita's Medical CenterLymphocytes Auto (Bld) [#/Vol] Ordered By: Vinay Bunting on 77-69-7593Mvakwurdwvi (Bld) [#/Vol]1.0 10*3/uL 1.00-4.8[facility] HospitalLymphocytes/100 WBC Auto (Bld)Ordered By: Vinay Bunting on 00-45-5913Ezzzeqivowk/100 WBC (Bld)26.3 %.[facility] ClinicH Auto (RBC) [Entitic mass]Ordered By: Vinay Bunting on 16-75-1411WGC (RBC) [Entitic mass]28.6 pg24.7-34.3FMercy Health St. Rita's Medical CenterMCHC Auto (RBC) [Mass/Vol]Ordered By: Vinay Bunting on 87-63-1564UWNC (RBC) [Mass/Vol]33.5 g/dL32.0-35.0[facility] HospitalMCV Auto (RBC) [Entitic vol]Ordered By: Vinay Bunting on 91-47-2828AGN (RBC) [Entitic vol]85.5 mN13-984JdkxlqzypMercy Health St. Charles HospitalMonocytes Auto (Bld) [#/Vol] Ordered By: Vinay Bunting on 14-37-9771Hjbosvtxd (Bld) [#/Vol]0.2 10*3/uL 0.0-0.8[facility] HospitalMonocytes/100 WBC Auto (Bld)Ordered By: Vinay Bunting on 45-99-2896Afnzafsen/100 WBC (Bld)6.4 %.[facility] HospitalNeutrophils Auto (Bld) [#/Vol]Ordered By: Vinay Bunting on 38-40-3036Hbyuskcejgs (Bld) [#/Vol]2.4 10*3/uL1.8-7.7FMercy Health St. Rita's Medical CenterNeutrophils/100 WBC Auto (Bld)Ordered By: Vinay Bunting on 05-21-2022 Neutrophils/100 WBC (Bld)63.8 %.[facility] HospitalNo Panel InformationOrdered By: Vinay Bunting on 77-76-1092Riotohhmr GFR ()56 mL/MinMercy Health St. Charles HospitalComment on above:GFR estimated reference range: According to KDOQI guidelines, <60 ml/min/1.73m2 is sufficient todiagnose a patient with chronic kidney disease.Pharmacy Creatinine Clearance (ChemN/[facility] HospitalPlatelet mean volume Auto (Bld) [Entitic vol]Ordered By: Vinay Bunting on 79-17-7155Dsjntoif mean volume (Bld) [Entitic vol]7.3 fL6.3-10.7FMercy Health St. Rita's Medical CenterPlatelets Auto (Bld) [#/Vol]Ordered By: Vinay Bunting on 13-94-6590Ipqcceqta (Bld) [#/Vol]153 10*3/zW670-286LswpixysdMercy Health St. Charles HospitalProtein [Mass/volume] in Serum or PlasmaOrdered By: Vinay Bunting on 02-77-6314Zaikunf [Mass/Vol]5.5 g/dL6.1-7.[address] [facility] HospitalRBC Auto (Bld) [#/Vol]Ordered By: Vinay Bunting on 67-17-1438VEP (Bld) [#/Vol]3.40 10*6/uL3.60-5.00[facility] Centererum or plasma alanine aminotransferase measurement without P-5'-P (enzymatic activiOrdered By: Vinay Bunting on 09-51-6164QVG No additional P-5'-P [Catalytic activity/Vol]28 U/N34-75UhxigvzbhPremier Health Upper Valley Medical Centererum or plasma albumin/globulin mass ratioOrdered By: Vinay Bunting on 57-13-2351Vsemsny/Globulin [Mass ratio]1.5 {ratio}[facility] Centererum or plasma alkaline phosphatase measurement (enzymatic activity/volume)Ordered By: Vinay Bunting on 34-98-8776UUX [Catalytic activity/Vol]96 U/N20-71HjvddccrnPremier Health Upper Valley Medical Centererum or plasma aspartate aminotransferase measurement (enzymatic activity/volume)Ordered By: Vinay Bunting on 98-83-2604MCD [Catalytic activity/Vol]30 U/R22-02QbokfodiuPremier Health [facility] Valley Medical Centererum or plasma calcium measurement (mass/volume)Ordered By: Vinay Bunting on 61-53-1246Anbvseu [Mass/Vol]8.5 mg/dL8.2-10.2FUniversity Hospitals Cleveland Medical Centererum or plasma chloride measurement (moles/volume) Ordered By: Vinay Bunting on 79-64-9101Elhiflff [Moles/Vol]102 mmol/L95-114 [facility] Centererum or plasma glucose measurement (mass/volume)Ordered By: Vinay Bunting on 49-92-0717Puffgwe [Mass/Vol]167 mg/dL 70-100[facility] HospitalComment on above:ADA recommended reference range Random Glucose Reference Range is dependent on time and content of last meal. Glucose of more than 200 mg/dL in a nonstressed, ambulatory subject supports the diagnosis of Diabetes Mellitus.Serum or plasma high density lipoprotein (HDL) cholesterol measurementOrdered By: Vinay Matta on 93-16-8301Npnqigyrnsr in HDL [Mass/Vol]41 mg/tY07-39LxwlaatzgMercy Health St. Charles HospitalComment on above:HDL CHOL ATP-III CLASSIFICATION Cardiovascular Risk HDL > or equal to 60 mg/dL LOW HDL < 40 mg/dL HIGHSerum or plasma potassium measurement (moles/volume)Ordered By: Vinay Bunting on 45-35-3569Mhrqxuzql [Moles/Vol]4.5 mmol/L3.5-5.1FUniversity Hospitals Cleveland Medical Centererum or plasma rheumatoid factor measurement (units/volume)Ordered By: Vinay Matta on 79-69-3019Qzmlsudnft factor Qn [IU]/mL<14.0[facility] Charles HospitalComment on above:Performed at: - [facility] [id number] [employer]: Darren Ashby PhD, Phone: [phone] or plasma sodium measurement (moles/volume)Ordered By: Vinay Matta on 48-31-4698Naqzzo [Moles/Vol]140 mmol/O182-576RnporumavPremier Health Upper Valley Medical Centererum or plasma total bilirubin measurement (mass/volume)Ordered By: Vinay Matta on 13-80-7962Ldsqnwcna [Mass/Vol]0.5 mg/dL0.3-1.2FMercy Health St. Rita's Medical Center Serum or plasma total carbon dioxide measurement (moles/volume)Ordered By: Vinay Matta on 44-13-5901GR3 [Moles/Vol]27.2 mmol/L22.0-30.0[facility] Centererum or plasma total cholesterol/high density lipoprotein (HDL) cholesterol mass ratOrdered By: Vinay Matta on 05-21-2022 Cholesterol.total/Cholesterol in HDL [Mass ratio]3.0 {ratio}<5.0[facility] Centererum or plasma urea nitrogen measurement (mass/volume) Ordered By: Vinay Matta on 43-60-8337Wnnn nitrogen [Mass/Vol]24 mg/dL9-23 [facility] Centererum or plasma uric acid measurement (mass/volume)Ordered By: Vinay Matta on 75-81-8036Ryyxs [Mass/Vol]4.1 mg/dL 2.6-7.2FMercy Health St. Rita's Medical CenterTriglyceride [Mass/volume] in Serum or PlasmaOrdered By: Vinay Bunhomer on 75-35-9136Lwnsjeahhopq [Mass/Vol]68 mg/dL 35-149[facility] HospitalComment on above:TRIG ATP III CLASSIFICATION TRIG less than 150 mg/dL Normal TRIG 150-199 mg/dL Borderline high TRIG 200-500 mg/dL High TRIG greater than 500 mg/dL Very high Standard traceable to the Center for Disease Conrtrol and Prevention (CDC) test method.Automated basophil %on 38-66-4044Nneojkiel/100 WBC (Bld)0.4 %[facility] CtrAutomated basophil counton 33-00-9261Aduvjjbjv (Bld) [#/Vol] 0.0 10*3/uL0.0-0.2FUC Health CtrAutomated blood lymphocyte count (number/volume)on 42-29-7489Ufzdpekypgq (Bld) [#/Vol]1.3 10*3/uL1.00-4.8 [facility] CtrAutomated blood lymphocyte count as percentage of total leukocyteson 06-98-0713Egweithwwth/100 WBC (Bld)19.5 %[facility] CtrAutomated blood monocyte counton 95-29-0906Shquascku (Bld) [#/Vol]0.3 10*3/uL0.0-0.8[facility] CtrAutomated blood platelet count (count/volume)on 22-01-1101Nfzozezmb (Bld) [#/Vol]158 10*3/fC562-161VzeqrqlmpVeterans Health Administration CtrAutomated blood platelet mean volume measurementon 19-20-7703Ddmdqcfe mean volume (Bld) [Entitic vol]7.2 fL6.3-10.7FUC Health CtrAutomated eosinophil %on 06-27-8968Eurzafvtvhn/100 WBC (Bld) 3.2 %[facility] CtrAutomated eosinophil counton 01-31-2021 Eosinophils (Bld) [#/Vol]0.2 10*3/uL0.0-0.45[facility] Automated erythrocyte distribution width ratioon 34-99-2516Fmqivchimvc distribution width (RBC) [Ratio]16.8 %11.9-15.3FMercy Health Automated erythrocyte mean corpuscular hemoglobin (mass per erythrocyte)on 61-09-1376IPA (RBC) [Entitic mass]29.4 pg24.7-34.3FMercy Health Automated erythrocyte mean corpuscular hemoglobin concentration measurement (mass/volon 25-58-2382XTMG (RBC) [Mass/Vol]33.9 g/dL32.0-35.0[facility] CtrAutomated erythrocyte mean corpuscular volumeon 78-20-1495YQG (RBC) [Entitic vol]86.6 zS11-310UuwdqbjntVeterans Health Administration CtrAutomated erythrocytes count in urine sediment (number/area)on 40-66-5232EQR Auto (Urine sed) [#/Area] 0-1 [HPF][facility] CtrAutomated leukocytes count in urine sediment (number/area)on 85-75-2741LJU Auto (Urine sed) [#/Area]3-4 [HPF] [facility] CtrAutomated monocyte %on 44-88-5628Bdedewidv/100 WBC (Bld)5.0 %[facility] CtrAutomated neutrophil %on 01-31-2021 Neutrophils/100 WBC (Bld)71.9 %[facility] CtrAutomated urine color determinationon 80-81-4793Uwuie (U)YellowYellowV[facility] CtrBlood erythrocytes automated count (number/volume)on 02-64-2924PJO (Bld) [#/Vol]4.01 10*6/uL3.60-5.00[facility] CtrBlood hemoglobin measurement (mass/volume)on 13-55-3213Fuigtbebew (Bld) [Mass/Vol]11.8 g/dL 11.8-15.4[facility] CtrBlood leukocytes automated count (number/volume)on 74-18-7029NTU (Bld) [#/Vol]6.7 10*3/uL4.5-11.0[facility] CtrBlood neutrophil count by automated method (number/volume)on 06-97-4574Fctmnnjafcu (Bld) [#/Vol]4.8 10*3/uL1.8-7.7F[facility] CtrBody fluid albumin measurement (mass/volume)on 44-33-3546Erapkfj (Body fld) [Mass/Vol]3.7 g/dL3.2-5.5[facility] CtrCholesterol [Mass/volume] in Serum or Plasmaon 40-55-2788Mzdetdmhepr [Mass/Vol]129 mg/oK198-338ZdtkgqblmVeterans Health Administration CtrComment on above:Chol less than 200 mg/dl low riskChol 201- 239 mg/dl borderline riskChol 240 mg/dl and greater high riskCholesterol in LDL [Mass/volume] in Serum or Plasma by calculationon 92-14-1659Iefyqggkdvc in LDL [Mass/Vol]63 mg/dL0-100[facility] CtrComment on above:LDL ATP III CLASSIFICATIONLDL less than 100 mg/dL OptimalLDL 100-129 mg/dL Near or above pehdlfiUJW494-303 mg/dL Borderline highLDL 160-189 mg/dL HighLDL greater than 189 mg/dL Very highCholesterol in VLDL [Mass/volume] in Serum or Plasma by calculationon 80-22-1160Pkqchpjboyf in VLDL [Mass/Vol]22 mg/dLVeterans Health Administration CtrCreatinine [Mass/volume] in Urineon 32-88-9090Rppxvfenjj (U) [Mass/Vol]127.7 mg/dLVeterans Health Administration CtrComment on above:No reference range establishedEstimated glomerular filtration rate (GFR) non- Americanon 99-60-8694VKC/1.73 sq M predicted among non-blacks MDRD (S/P/Bld) [Vol rate/Area]45 mL/min/{1.73_m2}[facility] CtrGlucose mean value [Mass/volume] in Blood Estimated from glycated hemoglobinon 01-31-2021 Average glucose Estimated from glycated hemoglobin mass conc (Bld)174 mg/dL [facility] CtrHematocrit [Volume Fraction] of Blood by Automated counton 37-28-7713Yrhkpdyvsm (Bld) [Volume fraction]34.7 %34.0-46.4[facility] CtrHemoglobin A1c percentageon 08-38-8861DyG5t (Bld) [Mass fraction]7.7 %4.3-5.6[facility] CtrComment on above:Increased risk for diabetes: 5.7 - 6.4diabetes: >6.4glycemic control for adults with diabetes: <7.0Otheron 95-64-6389ZMT/1.73 sq M.predicted MDRD (S/P/Bld) [Vol rate/Area]55 mL/min/{1.73_m2}[facility] CtrComment on above:GFR estimated reference range: According to KDOQI guidelines, <60 ml/min/1.73m2 is sufficient todiagnose a patient with chronic kidney disease.Nucleated RBC/100 WBC (Bld) [Ratio]0.2 %0-0.5[facility] CtrPharmacy Creatinine Clearance (ChemN/AFUC Health CtrProtein [Mass/volume] in Serum or Plasmaon 29-90-6401Qyefgdt [Mass/Vol]6.2 g/dL6.1-7.9[facility] CtrSerum globulin measurement by calculation (mass/volume)on 01-31-2021 Globulin (S) [Mass/Vol]2.5 g/dLCleveland Clinic Mercy HospitalSerum or plasma alanine aminotransferase measurement without P-5'-P (enzymatic activion 90-74-2249DBX No additional P-5'-P [Catalytic activity/Vol]47 U/K11-22DieyrphadVeterans Health Administration CtrSerum or plasma albumin/globulin mass ratioon 01-31-2021 Albumin/Globulin [Mass ratio]1.5 {ratio}[facility] CtrSerum or plasma alkaline phosphatase measurement (enzymatic activity/volume)on 01-31-2021 ALP [Catalytic activity/Vol]90 U/Q62-89JzjumesooVeterans Health Administration CtrSerum or plasma aspartate aminotransferase measurement (enzymatic activity/volume)on 14-63-4480EPQ [Catalytic activity/Vol]69 U/Q20-09DzbcifgokCleveland Clinic Mercy Hospital Serum or plasma calcium measurement (mass/volume)on 77-28-4380Kguaxdy [Mass/Vol] 8.4 mg/dL8.2-10.2[facility] CtrSerum or plasma chloride measurement (moles/volume)on 29-04-7337Qthhwkmw [Moles/Vol]100 mmol/L95-114 [facility] CtrSerum or plasma creatinine measurement with calculation of estimated glomerular filtron 48-77-3200Mmsygpqrkh [Mass/Vol]1.17 mg/dL0.44-1.03[facility] CtrSerum or plasma glucose measurement (mass/volume)on 47-77-0057Jmyfhjk [Mass/Vol]157 mg/bN00-005ZodsezwhnVeterans Health Administration CtrComment on above:ADA recommended reference rangeRandom Glucose Reference Range is dependent on time and content of last meal. Glucose of more than 200 mg/dL in a nonstressed, ambulatory subject supports the diagnosisof Diabetes Mellitus.Serum or plasma high density lipoprotein (HDL) cholesterol measurementon 83-25-1042Cnwrkajmtco in HDL [Mass/Vol]43 mg/wR89-84KaflxtrgvVeterans Health Administration CtrComment on above:HDL CHOL ATP-III CLASSIFICATION Cardiovascular RiskHDL > or equal to 60 mg/dL LOWHDL < 40 mg/dL HIGHSerum or plasma potassium measurement (moles/volume)on 25-44-4093Gllmxjymo [Moles/Vol]3.5 mmol/L3.5-5.1[facility] CtrSerum or plasma sodium measurement (moles/volume)on 00-35-6231Zjwghn [Moles/Vol]140 mmol/O189-951FoqjmygowVeterans Health Administration CtrSerum or plasma total bilirubin measurement (mass/volume)on 48-50-3649Hcyvotpxx [Mass/Vol]0.9 mg/dL0.3-1.2FMercy Health Serum or plasma total carbon dioxide measurement (moles/volume)on 82-04-8835RZ1 [Moles/Vol]26.2 mmol/L22.0-30.0[facility] CtrSerum or plasma total cholesterol/high density lipoprotein (HDL) cholesterol mass dulce maria 86-12-1353Zwhvonyzben.total/Cholesterol in HDL [Mass ratio]3.0 {ratio}[facility] CtrSerum or plasma urea nitrogen measurement (mass/volume)on 07-07-4411Xqgt nitrogen [Mass/Vol]23 mg/dL9-23[facility] Specific gravity of Urine by Automated test stripon 75-32-7624Xmkvqtfh gravity (U) [Rel density]1.0201.001-1.030[facility] CtrSquamous epithelial cells detection in urine sediment by light microscopyon 01-31-2021 Epithelial cells.squamous LM Ql (Urine sed)10-19 [HPF][facility] CtrTriglyceride [Mass/volume] in Serum or Plasmaon 25-97-5846Evtmobnffuyx [Mass/Vol]114 mg/jL25-555IkvvrfbzzVeterans Health Administration CtrComment on above:TRIG ATP III CLASSIFICATIONTRIG less than 150 mg/dL NormalTRIG 150-199 mg/dL Borderline highTRIG 200-500 mg/dL High TRIG greater than 500 mg/dL Very highStandard traceable to the Center for Disease Conrtrol and Prevention (CDC) test method. Urinalysison 64-97-7706Rqfodoc casts LM Ql (Urine sed)0-8 [LPF][facility] CtrUrine bacteria detection by automated methodon 01-31-2021 Bacteria Auto Ql (U)None seenNone SeenVeterans Health Administration CtrUrine clarity by refractometry automatedon 51-92-5942Zgdgjwc Refractometry automated (U)ClearCleSheltering Arms HospitalUrine glucose measurement by automated test strip (mass/volume)on 99-05-2595Jnjdpxc Auto test strip (U) [Mass/Vol]Normal mg/dLNormalCleveland Clinic Mercy HospitalUrine hemoglobin detection by automated test stripon 22-84-7455Emawhkshmu Auto test strip Ql (U) NegativeNegativeCleveland Clinic Mercy HospitalUrine ketones measurement by automated test strip (mass/volume)on 19-31-6620Uidtzjv (U) [Mass/Vol]Negative NegativeCleveland Clinic Mercy HospitalUrine leukocyte esterase detection by automated test stripon 70-26-2845Rstghvcpi esterase Auto test strip Ql (U)1+ NegativeCleveland Clinic Mercy HospitalUrine microalbumin measurement with detection limit of 20 mg/L or less (mass/volume)on 56-33-4638Echnhwr DL <= 20 mg/L (U) [Mass/Vol]0.9 mg/dL0.0-1.8[facility] HospitalUrine microalbumin/creatinine mass ratioon 13-46-3042Qiyqdhb/Creatinine DL <= 20 mg/L (U) [Mass ratio]7.0 mg/g0.0-30.0[facility] CtrComment on above: 30-300 mg/g indicates an increased risk for diabetic nephropathy. Greater than 300 mg/g is consistent with clinical nephropathy. (Am. J. Kidney Disease 1995, 25:107)Urine nitrite detection by test stripon 98-40-2933Rjurlig Ql (U)Negative NegativeVeterans Health Administration CtrUrine pH measurement by automated test stripon 24-52-5421pE (U)5.0 [pH]5.0-9.0[facility] CtrUrine protein measurement by automated test strip (mass/volume)on 53-75-3895Vyaeiyz (U) [Mass/Vol]Trace mg/dLNegativeCleveland Clinic Mercy HospitalUrine total bilirubin detection by test stripon 56-53-0868Sfpprbkaf Ql (U)NegativeNegative [facility] CtrUrine urobilinogen measurement by automated test strip (mass/volume)on 21-52-2381Lrdimsakaync (U) [Mass/Vol]Normal mg/dLNormal [facility] Vital Signs Date TimeVital SignValuePerforming CfewuivqyXzlhepwh35-63-3319 09:14-0400Body iaczxn246.75 kgDarrin Bunting DO Work Phone: 1(425)[address] [place], [place] 9730509-08-2025 09:14-0400 Diastolic blood mm[Hg]Vinay Bunting DO Work Phone: 1(617)[address] [place], [place] 9730509-08-2025 09:14-0400 Heart rate76 /minDarrin Bunting DO Work Phone: 1(936)[address]09-08-2025 09:14-0400 SaO2% (BldA) [Mass fraction]96 %Vinay Bunting DO Work Phone: 1(120)4-[address] [place], [place] 1843709-08-2025 09:14-0400 Systolic blood hdxvtmax232 mm[Hg]Vinay Bunting DO Work Phone: 1(334)0-[address] [place], [place] 1843708-20-2025 09:46-0400 Body wfewgo472.48 cmDarrin Bunting DO Work Phone: 1(942)[address]08-20-2025 09:46-0400 Body mass index (BMI) [Ratio]40.2 kg/m4Thskgh Bunting DO Work Phone: 1(950)[address]08-20-2025 09:46-0400 Body osrszmmggrz58.3 [degF]Vinay Bunting DO Work Phone: [facility]08-20-2025 09:46-0400 Body .9 kgDarrin Bunting DO Work Phone: 1(966)[address]08-20-2025 09:46-0400 Diastolic blood sehzlsyn33 mm[Hg]Vinay Bunting DO Work Phone: 1(069)[address]08-20-2025 09:46-0400 Heart rate81 /minDarrin Bunting DO Work Phone: 1(195)[address] [place], [place] 7515608-20-2025 09:46-0400 Respiratory rate18 /minDarrin Bunting DO Work Phone: 1(884)[address]08-20-2025 09:46-0400 SaO2% (BldA) [Mass fraction]96 %Vinay Bunting DO Work Phone: 1(775)238-[address] [place], [place] 1843708-20-2025 09:46-0400 Systolic blood owymvuld074 mm[Hg]Vinay Bunting DO Work Phone: 1(500)6-69[facility]06-10-2025 10:47-0400 Body regzjs893 cmMindy Cyrus PA-C Work Phone: [facility]06-10-2025 10:47-0400Body mass index (BMI) [Ratio]40.42 kg/p6Nkuvj Cyrus PA-C Work Phone: [facility]06-10-2025 10:47-0400Body temperature 97.9 [degF]Daksha Cyrus PA-C Work Phone: [facility]06-10-2025 10:47-0400Body inlfrg908.9 kgMindy Cyrus PA-C Work Phone: [facility]06-10-2025 10:47-0400Diastolic blood fmchbfnu91 mm[Hg]Daksha Cyrus PA-C Work Phone: [facility]06-10-2025 10:47-0400Heart rate84 /min Daksha Kanger PA-C Work Phone: [facility]06-10-2025 10:47-0400Respiratory rate 18 /minDaksha Kanger PA-C Work Phone: [facility]06-10-2025 10:47-0045FaM2% (BldA) [Mass fraction]94 %Daksha Kanger PA-C Work Phone: [facility]06-10-2025 10:47-0400Systolic blood wimqseeq350 mm[Hg]Daksha Kanger PA-C Work Phone: [facility]05-15-2025 09:45-0400Blood Pressure LocationVerónica Ugarte [phone]-RzotvBarnesville Hospital05-15-2025 09:45-0400Diastolic blood qisjhltw05 mm[Hg]Verónica Ugarte [phone]-FzhamBarnesville Hospital05-15-2025 09:45-0400Heart rate67 /minVerónica Ugarte [phone]-FwipzBarnesville Hospital05-15-2025 09:45-0400Systolic blood rxtuprvn881 mm[Hg]Verónica Ugarte [phone]-BfgoaBarnesville Hospital04-21-2025 09:47-0400Body nshuwr776.9 cmAngela Lowe PA Work Phone: noKindred HospitalQhrrdkjtnl92-93-9282 09:47-0400Body mass index (BMI) [Ratio]41 kg/k1Jlhiph Lowe PA Work Phone: noKindred HospitalSwvuhiksyd60-71-8669 09:47-0400Body pyyovu03.43 kgAngela Lowe PA Work Phone: noKindred HospitalQjsygkktvs60-91-0404 09:47-0400Diastolic blood cjcipjcs60 mm[Hg]Tammy Lowe PA Work Phone: noKindred HospitalUhddqmqbeh37-87-6453 09:47-0400Systolic blood zisfmfhj764 mm[Hg]Tammy Lowe PA Work Phone: noKindred HospitalLqgnrtisxf77-94-3183 14:14-0500Body mass index (BMI) [Ratio]38.7 kg/d3Sqttm Cyrus PA-C Work Phone: [facility]02-21-2025 14:14-0500Body temperature 97.81 [degF]Daksha Cyrus PA-C Work Phone: [facility]02-21-2025 14:14-0500Body .6 kgMindy Cyrus PA-C Work Phone: [facility]02-21-2025 14:14-0500Diastolic blood peryuisg11 mm[Hg]Daksha Cyrus PA-C Work Phone: [facility]02-21-2025 14:14-0500Heart rate80 /min Daksha Cyrus PA-C Work Phone: [facility]02-21-2025 14:14-0500Respiratory rate 18 /minMindy Cyrus PA-C Work Phone: [facility]02-21-2025 14:14-5454XtS3% (BldA) [Mass fraction]97 %Daksha Cyrus PA-C Work Phone: [facility]02-21-2025 14:14-0500Systolic blood sispuyew464 mm[Hg]Daksha Cyrus PA-C Work Phone: [facility]02-18-2025 09:44-0500Body .9 cmAcorie Lowe PA Work Phone: noKindred HospitalZrsicrwytv62-84-0641 09:44-0500Body mass index (BMI) [Ratio]40.06 kg/p4Kszjct Lowe PA Work Phone: noKindred HospitalYqnvnewggj97-59-8732 09:44-0500Body uwpcjw13.16 kgTammy Neffe PA Work Phone: [facility] CenterGzaeprakxv02-84-7309 09:44-0500Diastolic blood auagxipi68 mm[Hg]Tammy Neffe PA Work Phone: [facility] CenterQbotisgxya63-79-9663 09:44-0500Systolic blood sfyezweq304 mm[Hg]Tammy Neffe PA Work Phone: [facility] CenterSkekdezjzg69-73-8094 14:16-0500Body dwzreo748.48 cmDarrin Bunting DO Work Phone: 1(192)[address]02-11-2025 14:16-0500 Body mass index (BMI) [Ratio]38.9 kg/u7Oxqbrh Bunting DO Work Phone: 1(833)[address] [place], [place] 9730502-11-2025 14:16-0500 Body epwczyrtvtz01.5 [degF]Vinay Bunting DO Work Phone: 1(763)[address] [place], [place] 9730502-11-2025 14:16-0500 Body .67 kgDarrin Bunting DO Work Phone: 1(706)[address] [place], [place] 9730502-11-2025 14:16-0500 Diastolic blood oznacbts05 mm[Hg]Vinay Bunting DO Work Phone: 1(477)[address] [place], [place] 9730502-11-2025 14:16-0500 Heart rate80 /minDarrin Bunting DO Work Phone: 1(044)8-[address] [place], [place] 1843702-11-2025 14:16-0500 Respiratory rate18 /minDarrin Bunting DO Work Phone: 1(150)9-[address] [place], [place] 1843702-11-2025 14:16-0500 SaO2% (BldA) [Mass fraction]98 %Vinay Bunting DO Work Phone: 1(592)[address]02-11-2025 14:16-0500 Systolic blood xfoebqja960 mm[Hg]Vinay Bunting DO Work Phone: 1(274)[address] [place], [place] 9730512-30-2024 13:10-0500 Body .48 cmDarrin Bunting DO Work Phone: 1(188)026-[address] [place], [place] 1843712-30-2024 13:10-0500 Body mass index (BMI) [Ratio]38.4 kg/i0Fryfvz Bunting DO Work Phone: 3(335)969-[address] [place], [place] 1843712-30-2024 13:10-0500 Body gguoxa25.25 kgDarrin Bunting DO Work Phone: 1(808)210-[address] [place], [place] 1843712-30-2024 13:10-0500 Diastolic blood mm[Hg]Vinay Bunting DO Work Phone: 5(991)[address]2024 13:10-0500 Heart rate85 /minDarrin Bunting DO Work Phone: 7(737)[address] [place], [place] 7515612-30-2024 13:10-0500 SaO2% (BldA) [Mass fraction]95 %Vinay Bunting DO Work Phone: 2(907)385-[address] [place], [place] 1843712-30-2024 13:10-0500 Systolic blood makqsinn607 mm[Hg]Vinay Bunting DO Work Phone: 1(182)630-[address] [place], [place] 1843711-22-2024 14:42-0500 Body riwkba850 cmMindy Cyrus PA-C Work Phone: [facility]11-22-2024 14:42-0500Body mass index (BMI) [Ratio]38.74 kg/z2Bkocf Cyrus PA-C Work Phone: [facility]11-22-2024 14:42-0500Body temperature 97.11 [degF]Daksha Cyrus PA-C Work Phone: [facility]11-22-2024 14:42-0500Body qxqgdy77.7 kgMindy Cyrus PA-C Work Phone: [facility]11-22-2024 14:42-0500Diastolic blood kdzaniir69 mm[Hg]Daksha Cyrus PA-C Work Phone: [facility]11-22-2024 14:42-0500Heart rate81 /min Daksha Kanger PA-C Work Phone: [facility]11-22-2024 14:42-0500Respiratory rate 18 /minDaksha Kanger PA-C Work Phone: [facility]11-22-2024 14:42-0840FbS0% (BldA) [Mass fraction]95 %Daksha Kanger PA-C Work Phone: [facility]11-22-2024 14:42-0500Systolic blood ufcziido533 mm[Hg]Daksha Kanger PA-C Work Phone: [facility]11-14-2024 09:18-0500Blood Pressure LocationVerónica Ugarte [phone]-XfoanBarnesville Hospital11-14-2024 09:18-0500Diastolic blood tksimvlz83 mm[Hg]Verónica Ugarte [phone]-EeyotBarnesville Hospital11-14-2024 09:18-0500Heart rate74 /minVerónica Ugarte [phone]-JirlqBarnesville Hospital11-14-2024 09:18-0500Systolic blood mm[Hg]Verónica Ugarte [phone]-ItfwvBarnesville Hospital10-01-2024 08:51-0400Body hrwlas227.9 cmQueta Prieto ORTHOPEDIC BRACE MAKER Work Phone: noKindred HospitalVdcxegiqwq71-15-2227 08:51-0400Body mass index (BMI) [Ratio]39.49 kg/o6KiiezwsQueta Prieto ORTHOPEDIC BRACE MAKER Work Phone: noKindred HospitalTzftvbqygu72-10-4933 08:51-0400Body gcykjh50.8 kg Queta Prieto ORTHOPEDIC BRACE MAKER Work Phone: 1(419)483-[address] [place], [place] [address]Tbdldoxhnl66-21-2245 08:51-0400Diastolic blood rwmekzbt60 mm[Hg]Queta Prieto ORTHOPEDIC BRACE MAKER Work Phone: [facility] CenterZpzkorukrl96-99-7131 08:51-0400Heart rate77 /min Queta Prieto ORTHOPEDIC BRACE MAKER Work Phone: [facility] CenterWkuxcxdggz86-52-6118 08:51-0400Systolic blood gtwdagat019 mm[Hg]Queta Prieto ORTHOPEDIC BRACE MAKER Work Phone: [facility] CenterWbedxlbhns43-07-2510 12:08-0400Body temperature 97.5 [degF]DO Vinay Bunting Work Phone: 1(390)[address] [place], [place] 9730509-06-2024 12:08-0400 Diastolic blood pczpkczo87 mm[Hg]DO Vinay Bunting Work Phone: 1(706)[address] [place], [place] 9730509-06-2024 12:08-0400 Heart rate64 /minDO Vinay Bunting Work Phone: 1(322)[address] [place], [place] 9730509-06-2024 12:08-0400 Respiratory rate18 /minDO Vinay Bunting Work Phone: 1(938)[address] [place], [place] 9730509-06-2024 12:08-0400 SaO2% (BldA) [Mass fraction]98 %DO Vinay Bunting Work Phone: 1(179)[address] [place], [place] 9730509-06-2024 12:08-0400 Systolic blood mm[Hg]DO Vinay Bunting Work Phone: 1(260)[address] [place], [place] 9730509-06-2024 05:18-0400 Body .2 kgDO Vinay Bunting Work Phone: 1(956)[address]09-05-2024 15:32-0400 Body jdgefl074.56 cmDO Vinay Bunting Work Phone: 1(270)[address]09-05-2024 14:00-0400 Diastolic blood mm[Hg]DO Vinay Bunting Work Phone: 1(235)883-[address] [place], [place] 1843709-05-2024 14:00-0400 Heart rate76 /minDO Vinay Bunting Work Phone: 1(315)[address]09-05-2024 14:00-0400 Respiratory rate18 /minDO Vinay Bunting Work Phone: 1(607)[address] [place], [place] 9730509-05-2024 14:00-0400 SaO2% (BldA) [Mass fraction]98 %DO Vinay Bunting Work Phone: 1(396)[address] [place], [place] 9730509-05-2024 14:00-0400 Systolic blood fcaljywg439 mm[Hg]DO Vinay Bunting Work Phone: 1(555)[address] [place], [place] 9730509-05-2024 12:53-0400 Body cwflcpjeipv26.7 [degF]DO Vinay Bunting Work Phone: 1(832)[address] [place], [place] 9730509-05-2024 09:57-0400 Body ijvfcm202.56 cmDO Vinay Bunting Work Phone: 1(413)[address] [place], [place] 9730509-05-2024 09:57-0400 Body ssivbv95.34 kgDO Vinay Bunting Work Phone: 1(626)[address]08-30-2024 14:21-0400 Body mass index (BMI) [Ratio]37.85 kg/z7Dgifl Cyrsu PA-C Work Phone: [facility]08-30-2024 14:21-0400Body temperature 97.39 [degF]Daksha Cyrus PA-C Work Phone: [facility]08-30-2024 14:21-0400Body msdent52.5 kgMindy Cyrus PA-C Work Phone: [facility]08-30-2024 14:21-0400Diastolic blood mm[Hg]Daksha Cyrus PA-C Work Phone: [facility]08-30-2024 14:21-0400Heart rate81 /min Daksha Cyrus PA-C Work Phone: [facility]08-30-2024 14:21-0400Respiratory rate 18 /minDaksha Kanger PA-C Work Phone: [facility]08-30-2024 14:21-3800EoW2% (BldA) [Mass fraction]96 %Daksha Kanger PA-C Work Phone: [facility]08-30-2024 14:21-0400Systolic blood lcrydpje492 mm[Hg]Daksha Kanger PA-C Work Phone: [facility]08-19-2024 15:30-0400Body gceyjv808.56 cmDO Vinay Bunting Work Phone: 9(337)121[facility]09[facility]08-19-2024 15:30-0400 Body mass index (BMI) [Ratio]36.2 kg/m2DO Vinay Bunting Work Phone: [facility]08-19-2024 15:30-0400 Body qwscgmylfkb05 [degF]DO Vinay Bunting Work Phone: 9(115)123[facility]25[facility]08-19-2024 15:30-0400 Body wyyopy98.76 kgDO Vinay Bunting Work Phone: 6(999)900[facility]89[facility]08-19-2024 15:30-0400 Diastolic blood ojkkmzzi53 mm[Hg]DO Vinay Bunting Work Phone: [facility]08-19-2024 15:30-0400 Heart rate83 /minDO Vinay Bunting Work Phone: 0(812)094-32[facility]08-19-2024 15:30-0400 Respiratory rate18 /minDO Vinay Bunting Work Phone: 9(101)721-77[facility]08-19-2024 15:30-0400 SaO2% (BldA) [Mass fraction]97 %DO Vinay Bunting Work Phone: 3(774)608-11[facility]08-19-2024 15:30-0400 Systolic blood zmaporvk616 mm[Hg]DO Vinay Bunting Work Phone: 1(378)[address] [place], [place] 9730506-26-2024 11:41-0400 Body evbcxj771.56 cmDO Vinay Bunting Work Phone: 1(242)[address] [place], [place] 9730506-26-2024 11:41-0400 Body mass index (BMI) [Ratio]35.7 kg/m2DO Vinay Bunting Work Phone: 1(583)[address] [place], [place] 9730506-26-2024 11:41-0400 Body xfvcpoeiuwv71.4 [degF]DO Vinay Bunting Work Phone: 1(251)[address] [place], [place] 9730506-26-2024 11:41-0400 Body ccorke93.4 kgDO Vinay Bunting Work Phone: 1(142)[address] [place], [place] 9730506-26-2024 11:41-0400 Diastolic blood hoczeljx69 mm[Hg]DO Vinay Bunting Work Phone: 1(420)[address] [place], [place] 9730506-26-2024 11:41-0400 Heart rate88 /minDO Vinay Bunting Work Phone: 9(228)[address] [place], [place] 9730506-26-2024 11:41-0400 Respiratory rate16 /minDO Vinay Bunting Work Phone: 7(334)[address] [place], [place] 9730506-26-2024 11:41-0400 SaO2% (BldA) [Mass fraction]96 %DO Vinay Bunting Work Phone: 1(058)[address] [place], [place] 9730506-26-2024 11:41-0400 Systolic blood qgemenry370 mm[Hg]DO Vinay Bunting Work Phone: 1(147)[address] [place], [place] 9730505-31-2024 14:07-0400 Body izusrr611 Rodney Flores APRN.[employer]ICE FIELD WORKER Work Phone: [facility]05-31-2024 14:07-0400Body mass index (BMI) [Ratio]39.1 kg/y4Puenw Gross WIRE WINDING MACHINE OPERATOR.[employer] FI[employer] WORKER Work Phone: [facility]05-31-2024 14:07-0400Body temperature 97 [degF]Shana Mark WIRE WINDING MACHINE OPERATOR.[employer]ICE FIELD WORKER Work Phone: [facility]05-31-2024 14:07-0400Body adfwwp74.6 kgShana Flores WIRE WINDING MACHINE OPERATOR.[employer]ICE FIELD WORKER Work Phone: [facility]05-31-2024 14:07-0400Diastolic blood vpmiynnq95 mm[Hg]Shana Mark WIRE WINDING MACHINE OPERATOR.[employer]ICE FIELD WORKER Work Phone: [facility]05-31-2024 14:07-0400Heart rate89 /min Shana Mark WIRE WINDING MACHINE OPERATOR.[employer]ICE FIELD WORKER Work Phone: [facility]05-31-2024 14:07-0400Respiratory rate 16 /minErrichard Mark WIRE WINDING MACHINE OPERATOR.RICE FIELD WORKER Work Phone: [facility]05-31-2024 14:07-2421RsE8% (BldA) [Mass fraction]95 %Shana Mark WIRE WINDING MACHINE OPERATOR.RICE FIELD WORKER Work Phone: [facility]05-31-2024 14:07-0400Systolic blood bbdrycrr436 mm[Hg]Shana Flores WIRE WINDING MACHINE OPERATOR.RICE FIELD WORKER Work Phone: [facility]05-13-2024 11:48-0400Blood Pressure Arely Ugarte [phone]-XkpgoBarn[facility]05-13-2024 11:48-0400Diastolic blood jslkbrla01 mm[Hg]Verónica Ugarte [phone]-DqbjqBarnesville Hospital05-13-2024 11:48-0400Heart rate80 /minVerónica Ugarte [phone]-KopwaBarnesville Hospital05-13-2024 11:48-0400Respiratory rate16 /minVerónica Ugarte [phone]-PbfnrBarnesville Hospital05-13-2024 11:48-0400Systolic blood wzkxnieq559 mm[Hg]Verónica Ugarte [phone]-JsgmfBarnesville Hospital04-11-2024 10:03-0400Body jubmniguhul13.7 [degF]Chair Abhishek Work Phone: [facility]04-11-2024 10:03-0400Diastolic blood ynjdibft66 mm[Hg]Chair Abhishek Work Phone: [facility]04-11-2024 10:03-0400Heart rate82 /min Chair Abhishek Work Phone: [place] [address]-11-2024 10:03-0400Respiratory rate 16 /minChair Abhishek Work Phone: [facility]04-11-2024 10:03-7954PhT3% (BldA) [Mass fraction]97 %Chair Abhishek Work Phone: [facility]04-11-2024 10:03-0400Systolic blood nnfnalqi826 mm[Hg]Chair Abhishek Work Phone: [facility]03-15-2024 10:17-0400Body cm Daksha Cyrus PA-C Work Phone: [facility]03-15-2024 10:17-0400Body temperature 98.2 [degF]Daksha Cyrus PA-C Work Phone: [place] [address]-15-2024 10:17-0400Body ophxut17 kg Daksha Cyrus PA-C Work Phone: [place] [address]-15-2024 10:17-0400Diastolic blood nrkxnxud85 mm[Hg]Daksha Cyrus PA-C Work Phone: [place] [address]-15-2024 10:17-0400Heart rate93 /min Daksha Cyrus PA-C Work Phone: [place] [address]-15-2024 10:17-0400Respiratory rate 16 /minMindy Cyrus PA-C Work Phone: [facility]03-15-2024 10:17-1222QrT7% (BldA) [Mass fraction]95 %Daksha Bridges PA-C Work Phone: [facility]03-15-2024 10:17-0400Systolic blood tkdddonu665 mm[Hg]Daksha Bridges PA-C Work Phone: [facility]01-22-2024 09:08-0500Blood Pressure LocationBeth Ruth [phone]-OoypnBarnesville Hospital01-22-2024 09:08-0500Body vodngmffxsl37.8 [degF]Nisa Shepherd [phone]-TnerdBarnesville Hospital01-22-2024 09:08-0500Diastolic blood bokswpxx60 mm[Hg]Nisa Shepherd 290-2010Hgffjj-CtnreBarnesville Hospital01-22-2024 09:08-0500Heart rate92 /minBeth Ruth [phone]-GlpwsBarnesville Hospital01-22-2024 09:08-0500Systolic blood bqbszfao181 mm[Hg]Nisa Shepherd [phone]-UvibvBarnesville Hospital12-05-2023 10:30-0500Body myenpu887.56 cmPvega Delcid Other [employer] Other 12-05-2023 10:30-0500Body mass index (BMI) [Ratio] 36.04 kg/h9RbtfcAnh Delcid Other [employer] Other 12-05-2023 10:30-0500Body .26 kgPepepito Delcid Other [employer] Other 12-05-2023 10:30-0500Diastolic blood wrthviyc55 mm[Hg] Anh Delcid Other [employer] Other 12-05-2023 10:30-2867VbM2% (BldA) [Mass fraction]95 % Anh Delcid Other [employer] Other 12-05-2023 10:30-0500Systolic blood scnjwumg312 mm[Hg] Anh Delcid Other [facility] [employer] Other 09-08-2023 13:56-0400Body aiassk392 cmMindy Cyrus PA-C Work Phone: [facility]09-08-2023 13:56-0400Body temperature 97.7 [degF]Daksha Cyrus PA-C Work Phone: [facility]09-08-2023 13:56-0400Body glogjj71.63 kgMindy Cyrus PA-C Work Phone: [facility]09-08-2023 13:56-0400Diastolic blood mm[Hg]Daksha Cyrus PA-C Work Phone: [facility]09-08-2023 13:56-0400Heart rate79 /min Daksha Cyrus PA-C Work Phone: [facility]09-08-2023 13:56-0400Respiratory rate 16 /minMindy Cyrus PA-C Work Phone: [facility]09-08-2023 13:56-0615UuR0% (BldA) [Mass fraction]95 %Daksha Cyrus PA-C Work Phone: [facility]09-08-2023 13:56-0400Systolic blood bgrnuesn267 mm[Hg]Daksha Cyrus PA-C Work Phone: [facility]06-16-2023 13:42-0400Body xqrraq285 cm Daksha Cyrus PA-C Work Phone: [facility]06-16-2023 13:42-0400Body temperature 97.59 [degF]Daksha Kanger PA-C Work Phone: [facility]06-16-2023 13:42-0400Body aaayha18.62 kgMinvera Cyrus PA-C Work Phone: [facility]06-16-2023 13:42-0400Diastolic blood mayatigw74 mm[Hg]Daksha Cyrus PA-C Work Phone: [facility]06-16-2023 13:42-0400Heart rate82 /min Daksha Cyrus PA-C Work Phone: [facility]06-16-2023 13:42-0400Respiratory rate 18 /minMinvera Cyrus PA-C Work Phone: [facility]06-16-2023 13:42-4648QnR4% (BldA) [Mass fraction]95 %Daksha Kanger PA-C Work Phone: [facility]06-16-2023 13:42-0400Systolic blood gfctrzly908 mm[Hg]Daksha Kanger PA-C Work Phone: [facility]05-31-2023 09:26-0400Blood Pressure LocationMaher SALAM [phone]-CbgrrBarnesville Hospital05-31-2023 09:26-0400Diastolic blood dipwukgc20 mm[Hg]Gomez SALAM [phone]-VbikrBarnesville Hospital05-31-2023 09:26-0400Heart rate82 /minMaher SALAM [phone]-MfuaeBarnesville Hospital05-31-2023 09:26-0400Respiratory rate16 /minMaher SALAM [phone]-GbmpxBarnesville Hospital05-31-2023 09:26-4187ItX4% (BldA) [Mass fraction]96 %Jason RUSSELL [phone]-ZudwqMercy Health [facility] Shzpdn03-16-3885 09:26-0400Systolic blood oflbrcwu807 mm[Hg]Jason RUSSELL [phone]-DcmsjBarnesville Hospital04-28-2023 10:00-0400Diastolic blood ilibqrvh08 mm[Hg]DO Vinay Bunting Work Phone: [facility]04-28-2023 10:00-0400 Heart rate76 /minDO Vinay Bunting Work Phone: [facility]04-28-2023 10:00-0400 Respiratory rate16 /minDO Vinay Bunting Work Phone: [facility]04-28-2023 10:00-0400 SaO2% (BldA) [Mass fraction]96 %DO Vinay Bunting Work Phone: [facility]04-28-2023 10:00-0400 Systolic blood zypzvwjf431 mm[Hg]DO Vinay Bunting Work Phone: [facility]04-28-2023 08:00-0400 Body itobpvuwaqr53.7 [degF]DO Vinay Bunting Work Phone: [facility]04-28-2023 05:27-0400 Body wropii60.8 kgDO Vinay Bunting Work Phone: [facility]04-27-2023 12:20-0400 Body uqydwt193.48 cmDO Vinay Bunting Work Phone: [facility]03-24-2023 14:08-0400 Body cmMindy Cyrus PA-C Work Phone: [facility]03-24-2023 14:08-0400Body temperature 97.2 [degF]Daksha Cyrus PA-C Work Phone: [facility]03-24-2023 14:08-0400Body iwmdiv98.8 kgMindy Cyrus PA-C Work Phone: [facility]03-24-2023 14:08-0400Diastolic blood glhccicu06 mm[Hg]Daksha Cyrus PA-C Work Phone: [facility]03-24-2023 14:08-0400Heart rate84 /min Daksha Cyrus PA-C Work Phone: [facility]03-24-2023 14:08-0400Respiratory rate 16 /minMindy Cyrus PA-C Work Phone: [facility]03-24-2023 14:08-5555OrS0% (BldA) [Mass fraction]96 %Daksha Cyrus PA-C Work Phone: [facility]03-24-2023 14:08-0400Systolic blood uzmhlgjm302 mm[Hg]Daksha Cyrus PA-C Work Phone: [facility]02-13-2023 16:28-0500Diastolic blood egnxxgts55 mm[Hg]DO Vinay Bunting Work Phone: [facility]02-13-2023 16:28-0500 Heart rate87 /minDO Vinay Bunting Work Phone: [facility]02-13-2023 16:28-0500 Respiratory rate16 /minDO Vinay Bunting Work Phone: [facility]02-13-2023 16:28-0500 SaO2% (BldA) [Mass fraction]96 %DO Vinay Bunting Work Phone: [facility]02-13-2023 16:28-0500 Systolic blood vejtogtv031 mm[Hg]DO Vinay Bunting Work Phone: [facility]02-13-2023 13:16-0500 Body ifmjkn623.56 cmDO Vinay Bunting Work Phone: [facility]02-13-2023 13:16-0500 Body zrzokgcaycs98.5 [degF]DO Vinay Bunting Work Phone: [facility]02-13-2023 13:16-0500 Body .06 kgDO Vinay Bunting Work Phone: [facility]02-08-2023 10:10-0500 Blood Pressure LocationBeth Ruth [phone]-DxffkBarnesville Hospital02-08-2023 10:10-0500Body xqtewttueab75.8 [degF]Nisa Shepherd [phone]-VyqvrBarnesville Hospital02-08-2023 10:10-0500Diastolic blood ihttsyxm14 mm[Hg]Nisa Shepherd [phone]-RwfzcBarnesville Hospital02-08-2023 10:10-0500Heart rate77 /minBeth Ruth [phone]-BizwtBarnesville Hospital02-08-2023 10:10-0500Systolic blood chredtlv935 mm[Hg]Nisa Chatmanmetz [phone]-IymylBarnesville Hospital01-27-2023 14:23-0500Body xgpkry733 cmMindy Cyrus PA-C Work Phone: [facility]01-27-2023 14:23-0500Body temperature 97.39 [degF]Daksha Cyrus PA-C Work Phone: [facility]01-27-2023 14:23-0500Body .98 kgMindy Cyrus PA-C Work Phone: [facility]01-27-2023 14:23-0500Diastolic blood mm[Hg]Daksha Cyrus PA-C Work Phone: [facility]01-27-2023 14:23-0500Heart rate69 /min Daksha Kanger PA-C Work Phone: [facility]01-27-2023 14:23-0500Respiratory rate 16 /minMinvera Kanger PA-C Work Phone: [facility]01-27-2023 14:23-6618YkG5% (BldA) [Mass fraction]96 %Daksha Kanger PA-C Work Phone: [facility]01-27-2023 14:23-0500Systolic blood yffkpwum786 mm[Hg]Daksha Kanger PA-C Work Phone: [facility]12-15-2022 13:19-0500Body temperature 98.71 [degF]Chair Ahbishek Work Phone: [facility]12-15-2022 13:19-0500Diastolic blood xawkyvza73 mm[Hg]Chair Lincoln Work Phone: [facility]12-15-2022 13:19-0500Heart rate82 /min Chair Lincoln Work Phone: [facility]12-15-2022 13:19-0500Respiratory rate 18 /minChair Lincoln Work Phone: [facility]12-15-2022 13:19-2978OtQ4% (BldA) [Mass fraction]95 %Chair Lincoln Work Phone: [facility]12-15-2022 13:19-0500Systolic blood fpiidskw172 mm[Hg]Chair Lincoln Work Phone: [facility]12-08-2022 13:45-0500Diastolic blood eebmstrm57 mm[Hg]Chair Lincoln Work Phone: [facility]12-08-2022 13:45-0500Heart rate78 /min Chair Lincoln Work Phone: [facility]12-08-2022 13:45-0500Respiratory rate 16 /minChair Lincoln Work Phone: [facility]12-08-2022 13:45-8835MyV1% (BldA) [Mass fraction]99 %Chair Abhishek Work Phone: [place] [address]-08-2022 13:45-0500Systolic blood zciskjwz559 mm[Hg]Chair Abhishek Work Phone: [facility]12-01-2022 10:01-0500Body dsqjyg119 cm Daksha Cyrus PA-C Work Phone: [facility]12-01-2022 10:01-0500Body temperature 97.9 [degF]Daksha Cyrus PA-C Work Phone: [facility]12-01-2022 10:01-0500Body .07 kgMindy Cyrus PA-C Work Phone: [facility]12-01-2022 10:01-0500Diastolic blood cmjlfbih81 mm[Hg]Daksha Cyrus PA-C Work Phone: [facility]12-01-2022 10:01-0500Heart rate92 /min Daksha Cyrus PA-C Work Phone: [facility]12-01-2022 10:01-0500Respiratory rate 16 /minMindy Cyrus PA-C Work Phone: [facility]12-01-2022 10:01-4232GeZ8% (BldA) [Mass fraction]98 %Daksha Cyrus PA-C Work Phone: [facility]12-01-2022 10:01-0500Systolic blood qmhnalpj423 mm[Hg]Daksha Cyrus PA-C Work Phone: [facility]11-29-2022 11:30-0500Body ytdmex413.56 cmPeggy Delcid Other [employer] Other 11-29-2022 11:30-0500Body mass index (BMI) [Ratio] 36.39 kg/t0Dgtdi Delcid Other [employer] Other 11-29-2022 11:30-0500Body bplqjhibgle82.8 [degF]Anh Delcid Other [employer] Other 11-29-2022 11:30-0500Body .16 kgPeggy Delcid Other [employer] Other 11-29-2022 11:30-0500Diastolic blood cpaneumr56 mm[Hg] Anh Delcid Other [employer] Other 11-29-2022 11:30-7141MsH0% (BldA) [Mass fraction]97 % Anh Delcid Other [employer] Other 11-29-2022 11:30-0500Systolic blood amifpcwn936 mm[Hg] Anh Delcid Other [employer] Other 11-16-2022 10:51-0500Body hxoizl517 cmHenry Walker MD Work Phone: [facility]11-16-2022 10:51-0500Body temperature 96.91 [degF]Henry Walker MD Work Phone: [facility]11-16-2022 10:51-0500Body kwgyjh40.07 kgHenry Walker MD Work Phone: [facility]11-16-2022 10:51-0500Diastolic blood etqfnyoe28 mm[Hg]Henry Walker MD Work Phone: [facility]11-16-2022 10:51-0500Heart rate92 /min Henry Walker MD Work Phone: [facility]11-16-2022 10:51-0500Respiratory rate 18 /minHenry Walker MD Work Phone: [facility]11-16-2022 10:51-2806CnG6% (BldA) [Mass fraction]96 %Henry Walker MD Work Phone: [facility]11-16-2022 10:51-0500Systolic blood dppsutwh625 mm[Hg]Henry Walker MD Work Phone: [facility]10-18-2022 10:24-0400Diastolic blood fdesjzoi71 mm[Hg]Jose Carlos Mattson [facility]10-18-2022 10:24-0400Mean blood qqvhijvq75 mm[Hg]Jose Carlos Mattson [facility]10-18-2022 10:24-0400 Systolic blood atdirhzw448 mm[Hg]Jose Carlos Mattson [facility]10-18-2022 10:10-0400Blood Pressure LocationDalillian Mattson [facility]10-18-2022 10:10-0400 Diastolic blood gojrcrqd89 mm[Hg]Jose Carlos Mattson [facility]10-18-2022 10:10-0400Heart rate90 /Carlos Mattson [facility]10-18-2022 10:10-0400 Respiratory rate18 /Carlos Mattson [facility]10-18-2022 10:10-9454BnB8% (BldA) [Mass fraction]99 %Jose Carlos Mattson [facility]10-18-2022 10:10-0400 Systolic blood ekdiioig240 mm[Hg]Jose Carlos Mattson [facility]09-06-2022 20:31-0400 Diastolic blood ayhgvohx32 mm[Hg]DO Vinay Bunting Work Phone: [facility]09-06-2022 20:31-0400 Heart rate73 /minDO Vinay Bunting Work Phone: [facility]09-06-2022 20:31-0400 Respiratory rate16 /minDO Vinay Bunting Work Phone: [facility]09-06-2022 20:31-0400 SaO2% (BldA) [Mass fraction]99 %DO Vinay Bunting Work Phone: [facility]09-06-2022 20:31-0400 Systolic blood sayfbihh375 mm[Hg]DO Vinay Bunting Work Phone: [facility]09-06-2022 15:52-0400 Body fkcepw919.56 cmDO Vinay Bunting Work Phone: [facility]09-06-2022 15:52-0400 Body vqgpbedwskq82 [degF]DO Vinay Bunting Work Phone: [facility]09-06-2022 15:52-0400 Body .06 kgDO Vinay Bunting Work Phone: [facility]07-28-2022 09:33-0400 Blood Pressure LocationMaher SALAM [facility]07-28-2022 09:33-0400 Diastolic blood mm[Hg]Gomez SALAM [facility]07-28-2022 09:33-0400Heart rate87 /minMaher SALAM [facility]07-28-2022 09:33-0400 Respiratory rate14 /minMaher SALAM [facility]07-28-2022 09:33-4604UnZ7% (BldA) [Mass fraction]97 %Gomez SALAM [facility]07-28-2022 09:33-0400 Systolic blood sdkoacxy778 mm[Hg]Gomez SALAM [facility]07-28-2022 09:20-0400Blood Pressure LocationScher SALAM [facility]07-28-2022 09:20-0400 Diastolic blood gqzanzyc58 mm[Hg]Gomez SALAM [facility]07-28-2022 09:20-0400Heart rate92 /minMaher SALAM [facility]07-28-2022 09:20-0400 Respiratory rate29 /minMaher SALAM [facility]07-28-2022 09:20-0536BoI5% (BldA) [Mass fraction]97 %Gomez SALAM [facility]07-28-2022 09:20-0400 Systolic blood bikurprt432 mm[Hg]Gomez SALAM [facility]07-28-2022 09:15-0400Blood Pressure LocationMaher SALAM [facility]07-28-2022 09:15-0400 Diastolic blood fgmqyrxz06 mm[Hg]Gomez SALAM [facility]07-28-2022 09:15-0400Heart rate92 /minMaher SALAM [facility]07-28-2022 09:15-0400 Respiratory rate10 /minMaher SALAM [facility]07-28-2022 09:15-5461CbR4% (BldA) [Mass fraction]91 %Gomez SALAM [facility]07-28-2022 09:15-0400 Systolic blood mm[Hg]Gomez SALAM [facility]07-28-2022 09:08-0400Body vlixangqnga93.34 [degF]Gomez SALAM [facility]07-28-2022 07:48-0400Body zmqsqytmxpc35.8 [degF][facility] SALAM [facility]06-08-2022 09:40-0400 Diastolic blood yrovehjm51 mm[Hg][facility] SALAM [phone]-CajqhMercy Health [facility] [id number] 09:40-0400Heart rate78 /minMaher SAW [phone]-ZgujoMercy Health [facility] 06-08-2022 09:40-0400Systolic blood kdyahiad258 mm[Hg] [facility] SALAM [phone]-UtwipMercy Health [facility] Encounters Encounter DateEncounter TypeCare ProviderFacilityStart: 96-96-1107bqzzacxmmg Verónica UgarteFacility:[facility]tart: 08-07-2025 End: 28-78-4674nbzrwuldhwJNGRI M MUSSERFacility:[facility] HospitalStart: 07-24-2025 End: 56-78-4922yhsqlaohirRxsbun Bunting DO Work Phone: [facility] Work Phone: Start: 07-24-2025 End: 32-28-8957Pboybbj encounter procedureChristopher Nathanael Henriquez DO-[facility] Work Phone: Start: 07-19-2025 End: 29-44-9137Jxovaoz encounter procedureDaryan Josse Matta DO-[facility] Work Phone: Start: 07-19-2025 End: 14-50-6300iqcuylyfgrVmlteb Bunting DO Work Phone: [facility] Work Phone: Start: 07-11-2025 End: 25-85-3057xgkugbtpzlNrbhxcq A. MouchliFacility:[facility] DHStart: 07-11-2025 End: 60-04-7406Teaihju encounter procedureVerónica Ugarte [phone]-FpmcjMercy Health [facility] Start: 07-05-2025 End: 94-11-6976quburokctjLmylrk Bunting DO Work Phone: [facility] Work Phone: Start: 07-05-2025 End: 45-47-2852Pshmpxs encounter procedureMarilyn Stewart MD-[facility] [place] Work Phone: Start: 06-26-2025 End: 09-73-0992Uirlqan encounter procedureDajaylenenina Josse Matta DO-[facility] Work Phone: Start: 06-26-2025 End: 80-41-6528lzoxkvmxdvUjkdgh Bunting DO Work Phone: [facility] Work Phone: Start: 06-08-2025 End: 47-53-8753Ywvubzzce to same day surgery centerVerónica Ugarte MD- [facility] Work Phone: Start: 06-08-2025 End: 56-55-3852dfcurcanbmHspisj Bunting DO Work Phone: [facility] Work Phone: Start: 74-10-6451Osj-patient / Non-visitBradley Rowland MD- [facility] Work Phone: Start: 06-07-2025 End: 81-49-7792Zvrgdol encounter procedureNo Sh Aud [facility]iology [facility] - Jenny Kee CI AUDComment on above:Hearing loss, mixed, bilateral (Primary Dx) Start: 06-07-2025 End: 20-83-7162ckrbcwbukeXTYOFS LOWENot AvailableStart: 04-25-2025 End: 71-26-3959Kagmmm outpatient visit 15 minutesDaksha Bridges PA-C Work Phone: Hematology/OncologyComment on above:Anemia, unspecified type (Primary Dx); Iron deficiency anemia, unspecified iron deficiency anemia type; Stage 3b chronic kidney disease (HCC); Anemia in stage 3a chronic kidney disease (HCC)Start: 04-25-2025 End: 27-03-2269kvicwnrwptGJLOS M MUSSERFacility:[facility] HospitalStart: 04-18-2025 End: 55-37-9457mxtxjhgheoCBVZV M MUSSERFacility:[facility] HospitalStart: 04-11-2025 End: 71-70-9755Mmxedn-up encounterDaksha Bridges PA-C Work Phone: Hematology/OncologyComment on above:labs/follow up Start: 04-07-2025 End: 39-60-5488mjvdvyupugABBVS M MUSSERFacility:[facility] HospitalStart: 03-30-2025 End: 58-06-7899delgkclutsKqsahtu A. MouchliFacility:[facility] DHStart: 03-30-2025 End: 23-42-3126Tcpwlau encounter procedureVerónica Ugarte [phone]-UmxezMercy Health [facility] Start: 03-27-2025 End: 11-01-6864rykcoslpjgUlrwsxf A. MouchliFacility:FTMCStart: 03-27-2025 End: 05-49-6988Gbdbert encounter procedureMomacario CrArpan Ugarte [facility] Start: 03-20-2025 End: 10-97-8288jozcdrqrdrGeklinf Vjuanitaas Giedraitis MDFacility:[facility] Start: 03-06-2025 End: 38-82-4403Uuzcch flowsheetAngela Lowe PA Work Phone: ana [place]Start: 03-06-2025 End: 57-37-4086Wotupy flowsheetAngela Lowe PA Work Phone: ana [place]Start: 03-06-2025 End: 40-68-7164Xunchx outpatient visit 25 minutesAngela Lowe PA Work Phone: ana BELLEVUEComment on above:Transient ischemic attack (Primary Dx); Polyneuropathy; Syncope and collapse; Carpal tunnel syndrome, bilateral upper limbsStart: 03-06-2025 End: 57-21-5879drxnuheorsZHEQPT LOWENot AvailableStart: 02-20-2025 End: 14-96-1343uywtztuvbxBvckttf Vytautas Giedraitis MDFacility:[facility] [place] Start: 02-08-2025 End: 21-51-2640Yrvtszw encounter procedureDarrin Bunting DO Work Phone: [facility]-MRI [address] Closed Work Phone: Start: 02-08-2025 End: 54-87-6123gktknrfqqmFwhrfz Bunting DO Work Phone: [facility] Work Phone: Start: 01-09-2025 End: 31-09-6381Kzngrn-up encounterDaksha Bridges PA-C Work Phone: Hematology/OncologyStart: 01-09-2025 End: 41-10-0884tdirwbejsvQxmknde Vytautas Giedraitis MDFacility:[facility] [place] Start: 01-06-2025 End: 85-91-6361Scsagh outpatient visit 15 minutesDaksha Bridges PA-C Work Phone: Hematology/OncologyComment on above:Iron deficiency anemia, unspecified iron deficiency anemia type (Primary Dx); Thrombocytopenia (HCC); Stage 3b chronic kidney disease (HCC)Start: 01-06-2025 End: 59-61-5411qrvwmwrlhpJUGZZ M MUSSERFacility:[facility]ertart: 01-03-2025 End: 53-04-6198Ayuvmm flowsheetAngela Lowe PA Work Phone: [facility]ITALUEStart: 01-03-2025 End: 53-89-2570Ueqpqi flowsheetAngela Lowe PA Work Phone: ana JEWETTEVUEStart: 01-03-2025 End: 69-19-5057Kamjrg outpatient visit 15 minutesAngela Lowe PA Work Phone: aNA MYRIAMEVUEComment on above:Transient ischemic attack (Primary Dx); Polyneuropathy; Carpal tunnel syndrome, bilateral upper limbsStart: 01-03-2025 End: 68-62-5867pxhvylrxlqXEYODT LOWENot AvailableStart: 01-02-2025 End: 30-02-7285Brsndjoyl encounterDaksha Bridges PA-C Work Phone: Hematology/OncologyComment on above:Lab OrdersStart: 12-28-2024 End: 31-23-6332Yjeqhqv encounter procedureDarrin Bunting DO Work Phone: [facility] Work Phone: Start: 12-28-2024 End: 58-79-7137szxpbnohwcYafurk Bunting DO Work Phone: [facility] Work Phone: Start: 12-27-2024 End: 00-84-9236oeinfnmwvqLmajye Bunting DO Work Phone: [facility] Work Phone: Start: 12-27-2024 End: 49-18-2807Attlkyx encounter procedureDarrin Bunting DO Work Phone: [facility] [place] Work Phone: Start: 12-15-2024 End: 98-53-1730Jqnlewu encounter procedureDarrin Bunting DO Work Phone: [facility] Work Phone: Start: 12-15-2024 End: 88-13-0978khjlxyoazfMkcjdr Bunting DO Work Phone: [facility] Work Phone: Start: 11-14-2024 End: 76-83-0352Vszmseb encounter procedureDarrin Bunting DO Work Phone: [facility] Work Phone: Start: 10-20-2024 End: 11-69-4824Rss-admission assessmentHimacario Ugarte [facility] Start: 10-10-2024 End: 77-94-5202Pxvrvwufg encounterMinvera Bridges PA-C Work Phone: Hematology/OncologyComment on above:ResultsStart: 10-07-2024 End: 12-03-9340Zqrusq outpatient visit 15 minutesDaksha Bridges PA-C Work Phone: Hematology/OncologyComment on above:Iron deficiency anemia, unspecified iron deficiency anemia type (Primary Dx); Thrombocytopenia (HCC); Stage 3b chronic kidney disease (HCC)Start: 10-07-2024 End: 77-86-5074cgmufqxdhsHSIQD M MUSSERFacility:[facility]ertart: 10-06-2024 End: 58-63-5453Ycbloml encounter procedureDarrin Bunting DO Work Phone: [facility]-Electrodiagnostics Work Phone: Start: 10-06-2024 End: 88-06-9381fgcqgmzbcqZkhjnk BuntingFacility:[facility]ertart: 10-05-2024 End: 40-48-4849Trbndpr encounter procedureNoms Aud Audiology Aid - Jenny Sweet CI AUDComment on above:Hearing loss, mixed, bilateral (Primary Dx) Start: 10-05-2024 End: 70-07-0070xdfyuthjcoSPLLXD LOWENot AvailableStart: 09-29-2024 End: 55-56-3119ylqxgjtyqlGlludsd A. MouchliFacility:[facility] DHStart: 09-29-2024 End: 38-93-5258Mrijbkh encounter procedureMomacario Ugarte [phone]-BnnnyMer[facility] Start: 09-19-2024 End: 31-97-6762Ehsbduw encounter procedureDO Vinay Bunting Work Phone: [facility] [place] Work Phone: Start: 09-19-2024 End: 12-03-5031lnplcxpwkuNK Vinay Bunting Work Phone: [facility] Work Phone: Start: 08-16-2024 End: 85-60-2296Jmvnnc flowsheetFelicia C Ulyssesnagel [employer]OPEDIC BRACE MAKER Work Phone: no[facility] ROUTEStart: 08-16-2024 End: 33-49-1025Acsvqv flowsheetFelicia C Windnagel ORTHOPEDIC BRACE MA[employer]ER Work Phone: [facility] ROUTEStart: 08-16-2024 End: 31-48-6667Ztmmgt outpatient visit 25 minutesFelicia C Chepegel ORTHOPEDIC BRACE MAKER Work Phone: [facility] [place] STATE ROUTEComment on above:Transient ischemic attack (Primary Dx); Palpitations; PolyneuropathyStart: 08-16-2024 End: 06-26-8658xvcckbgbxsFVWJZYV C CONNERNot AvailableStart: 07-21-2024 End: 76-58-7595Mhkzawsimk and management of inpatientDO Vinay Bunting Work Phone: [facility] Work Phone: Start: 07-21-2024 End: 23-15-2082kxrjevnqmrg encounterDO Vinay Bunting Work Phone: [facility] Work Phone: Start: 07-19-2024 End: 75-10-1143Whyeszncm encounterMinvera Bridges PA-C Work Phone: Hematology/OncologyComment on above:ResultsStart: 07-15-2024 End: 02-51-3709Bruqir outpatient visit 15 minutesMinvera Bridges PA-C Work Phone: Hematology/OncologyComment on above:Iron deficiency anemia, unspecified iron deficiency anemia type (Primary Dx); Anemia of chronic renal failure, unspecified CKD stageStart: 07-04-2024 End: 01-39-3782fmapsgnvkwUD Vinay Bunting Work Phone: [facility] Work Phone: Start: 07-04-2024 End: 86-74-2581Rykajgh encounter procedureDO Vinay Bunting Work Phone: [facility] Work Phone: Start: 05-24-2024 End: 08-41-2766calnwknmpqXE Vinay Bunting Work Phone: [facility] Work Phone: Start: 05-24-2024 End: 28-18-0800Intqvfn encounter procedureDO Vinay Bunting Work Phone: [facility]-Ultrasound [place] Work Phone: Start: 05-11-2024 End: 34-31-5399cuxoqgxgadEM Vinay Bunting Work Phone: [facility] Work Phone: Start: 05-11-2024 End: 27-56-0146Cgeavug encounter procedureDO Vinay Bunting Work Phone: [facility] Neph[facility] Work Phone: Start: 74-09-6425Xulxkkkhw encounterSamantha Mcmahan RN Hematology/OncologyComment on above:ResultsStart: 04-15-2024 End: 58-40-9115Gxylwvf encounter procedureShana Flores APRN.[employer] FIELD WORKER Work Phone: Hematology/OncologyComment on above:Iron deficiency anemia, unspecified iron deficiency anemia type (Primary Dx); Anemia of chronic renal failure, unspecified CKD stage; Thrombocytopenia (HCC)Start: 03-28-2024 End: 98-42-4238Wmzonxa encounter procedureVerónica Ugarte [phone]-GpahoMercy Health [facility] Start: 02-25-2024 End: 29-66-0740kupvyydfrzFwibq [address] Work Phone: Hematology/OncologyComment on above:Iron deficiency anemia due to chronic blood loss (Primary Dx)Start: 02-18-2024 End: 80-78-1861rkncdbdptzKssyl [address] Work Phone: Hematology/OncologyComment on above:Iron deficiency anemia due to chronic blood loss (Primary Dx)Start: 02-11-2024 End: 90-18-2288uxqspyagebOQ Vinay Bunting Work Phone: [facility] Work Phone: Start: 02-11-2024 End: 05-71-0897Nsjrumj encounter procedureDO Vinay Bunting Work Phone: [facility]-XRay [place] Work Phone: Start: 87-69-9264Zibgap WorkLorkerri POTTERW Hematology/OncologyStart: 53-49-8395Haykfhkqb encounterSamantha Mcmahan RN Hematology/OncologyComment on above:IV IronStart: 48-93-3283Inssbtayr encounter Samantha Mcmahan RNHematology/OncologyComment on above:Patient UpdateStart: 01-29-2024 End: 76-37-1731tfmhjsrcbvLjyrr M Musser PA-C Work Phone: Hematology/OncologyComment on above:Stage 3b chronic kidney disease (HCC) (Primary Dx); Iron deficiency anemia secondary to inadequate dietary iron intakeStart: 01-29-2024 End: 10-39-6192Unkwipq encounter procedureDaksha Bridges PA-C Work Phone: SANDUSKYStart: 01-28-2024 End: 87-49-5161Ivwlhly encounter Ijeoma Hankins Ruth [facility] Start: 12-07-2023 End: 15-72-9165Cuyqckd encounter Ijeoma Hankins [place] [phone]-AogaxMercy Health [facility] Start: 39-47-5165Lshibcgof encounterSamantha Mcmahan RN Hematology/OncologyComment on above:ResultsStart: 39-28-0479Qbgsvs outpatient visit 25 minutesPeggy [facility] OutPtStart: 10-20-2023 End: 62-79-6061nsngaqcgeuYE Vinay Bunting Work Phone: [facility] Work Phone: Start: 10-20-2023 End: 95-38-9790Hcbvpqv encounter procedureDO Vinay Bunting Work Phone: [facility]-Sleep Lab Work Phone: start: 09-05-2023 End: 93-99-8213ikqhgwikzbMY Vinay Bunting Work Phone: [facility] Work Phone: Start: 09-05-2023 End: 55-28-1591Alkycju encounter procedureDO Vinay Bunting Work Phone: [facility]-Lab [place] Work Phone: Start: 77-42-7601Dhgmksfyx encounterSamantha Mcmahan RN Hematology/OncologyComment on above:ResultsStart: 07-24-2023 End: 84-34-9126iihgmmpojoAfonu M Musser PA-C Work Phone: Hematology/OncologyComment on above:Iron deficiency anemia secondary to inadequate dietary iron intake (Primary Dx); Stage 3b chronic kidney disease (HCC)Start: 07-24-2023 End: 37-10-7523Damqzhr encounter procedureDaksha Bridges PA-C Work Phone: SANDUSKYStart: 13-15-9859Afiqcgsju encounterDaksha Bridges PA-C Work Phone: Hematology/OncologyComment on above:ResultsStart: 78-57-0415Txjaaydrf encounterKarlie Vallejo RNHematology/OncologyComment on above:ResultsStart: 05-01-2023 End: 74-37-4624elndbmkxzyPdkoq M Musser PA-C Work Phone: Hematology/OncologyComment on above:Iron deficiency anemia secondary to inadequate dietary iron intake (Primary Dx); Stage 3b chronic kidney disease (HCC)Start: 05-01-2023 End: 45-40-6257Ycqkims encounter procedureDaksha Bridges PA-C Work Phone: SANDUSKYStart: 27-20-9985jptbpljtbpTmwsoydh:9090Start: 04-22-2023 End: 89-87-1929Jqrlkbq encounter procedureJason RUSSELL [facility] Start: 04-15-2023 End: 68-12-7977Qlsztcx encounter procedureMaher SALAM [phone]-EilqaMercy Health [facility] Start: 03-27-2023 End: 70-05-2692mxzgwfajluCU VINAY BUNTINGFacility:M2Asuxu: 03-13-2023 End: 91-77-1809lntqxtepvhAH Vinay Bunting Work Phone: [facility] Work Phone: Start: 03-13-2023 End: 12-02-0983Lscshfk encounter procedureDO Vinay Bunting Work Phone: [facility]-Electrodiagnostics Work Phone: Start: 03-11-2023 End: 30-76-5680Bpqtnwxgzq and management of inpatientDO Vinay Bunting Work Phone: [facility] Work Phone: Start: 73-43-3268wyocjwxjaoSpnmqvuc:9090Start: 02-23-2023 End: 97-67-2822xmdqcadfbeFZRUS SALAMFacility:V6Krkmq: 46-86-3337Ixrtoycns encounterSonia Rg RNHematology/OncologyComment on above:ResultsStart: 02-06-2023 End: 25-07-4995aupggoctykVzumdChito Bridges PA-C Work Phone: Hematology/OncologyComment on above:Iron deficiency anemia secondary to inadequate dietary iron intake (Primary Dx)Start: 02-06-2023 End: 20-22-3696Lbcieiw encounter Tiffani Bridges PA-C Work Phone: SANDUSKYStart: 01-16-2023 End: 31-82-1150Phquklv encounter procedureDO Vinay Bunting Work Phone: [facility]-Lab [place] Work Phone: Start: 01-08-2023 End: 29-74-7795Qgzwzcy encounter procedureNisa Cr Shepherd [facility] Start: 12-29-2022 End: 91-51-7759Ngvhioukj to same day surgery [facility] Vinay Matta Work Phone: [facility]Start: 12-29-2022 End: 72-85-9490xibfoabumzJU Vinay Bunhomer Work Phone: [facility] Work Phone: Start: 12-24-2022 End: 04-16-4505Ixxymvf encounter procedureNisa Hankins [place] [phone]-WcpgdMercy Health [facility] Start: 52-35-5767Lmszhhxbf encounterSonia Rg RN Hematology/OncologyComment on above:ResultsStart: 12-12-2022 End: 74-70-7388isdnwzkrbeOjdsy M Musser PA-C Work Phone: Hematology/OncologyComment on above:Iron deficiency anemia secondary to inadequate dietary iron intake (Primary Dx)Start: 12-12-2022 End: 13-41-2460Yugyfqq encounter Tiffani Bridges PA-C Work Phone: SANDUSKYStart: 10-30-2022 End: 39-13-6778ckybujttozXavae [address] Work Phone: Hematology/OncologyComment on above:Iron deficiency anemia due to chronic blood loss (Primary Dx)Start: 10-23-2022 End: 21-93-0941rwqsomzraaKdqpo [address] Work Phone: Hematology/OncologyComment on above:Iron deficiency anemia due to chronic blood loss (Primary Dx)Start: 61-59-3447Brhmub WorkRenetta POTTERWHematology/OncologyStart: 10-16-2022 End: 72-04-3691Anaptte encounter Tiffani Bridges PA-C Work Phone: SANDUSKYStart: 10-16-2022 End: 44-50-1135qorrsywzieWhvvdChito Bridges PA-C Work Phone: Hematology/OncologyComment on above:Anemia, unspecified type (Primary Dx); Iron deficiency anemia secondary to inadequate dietary iron intakeIron deficiency anemia due to chronic blood loss (Primary Dx)Start: 10-15-2022 Telephone encounterFinancial Navigator Braden Work Phone: Hematology/OncologyComment on above:Benefits InvestigationStart: 60-73-8442Rnfqpi outpatient visit 25 minutesPeggy [facility] SouthStart: 10-14-2022 End: 05-97-7724iboctwpkxmQC Vinay Matta Work Phone: [facility] Work Phone: Start: 10-14-2022 End: 89-00-5508Nzittvh encounter procedureDO Vinay Matta Work Phone: [facility]-Sleep LabStart: 79-32-7240Pgsstq WorkLori Alex WHematology/OncologyStart: 40-46-7042Pycgkolqs encounterHenry Walker MD Work Phone: Hematology/OncologyComment on above:Results, LabStart: 10-01-2022 End: 83-18-9702rzojzzgpuuNhjqfTad Walker MD Work Phone: Hematology/OncologyComment on above:Anemia, unspecified type (Primary Dx)Start: 10-01-2022 End: 60-06-7257Crcfzng encounter Declan Walker MD Work Phone: SANDUSKYStart: 78-88-1086Lrdzh abstractBraden Walker MD Work Phone: Hematology/OncologyStart: 09-19-2022 End: 38-53-2896Qxhmsws encounter procedureNisa Shepherd [facility] Start: 09-09-2022 End: 07-25-4876zmoojnimrwYH DOCTOR MISCFacility:O9Mxghe: 09-02-2022 End: 95-65-3878Cldrzjy encounter procedureDalillian Mattson [facility] Start: 07-31-2022 End: 99-10-7035Qkyigqx encounter procedureDO Vinay Bunting Work Phone: [facility] Start: 07-24-2022 End: 47-06-9187Ihydatq encounter procedureDO Vinay Bunting Work Phone: [facility]-Lab Main CampusStart: 07-22-2022 End: 51-17-1951Suhmtgpse department patient visitDO Vinay Bunting Work Phone: [facility]-Emergency RoomStart: 06-24-2022 End: 18-84-0304roswpavdivIWAMJ SALAMFacility:N5Qjytm: 06-23-2022 End: 08-95-2988dnshnglnijXF VINAY BUNTINGFacility:V5Pdinp: 06-16-2022 End: 76-29-2859Igqpipx encounter procedureDO Vinay Bunting Work Phone: [facility] Start: 06-12-2022 End: 10-55-3395Gvwwthd encounter procedureMaher SALAM [facility] Start: 05-21-2022 End: 62-11-5413Ftrtijf encounter procedureDO Vinay Bunting Work Phone: [facility]-Lab Main CampusStart: 04-23-2022 End: 75-75-3419Vjwrkjh encounter procedureMaher SALAM [phone]-TivrqMercy Health [facility] Start: 04-22-2022 End: 96-78-3175Icpqcnk encounter procedureDO Vinay Bunting Work Phone: [facility] HospitalStart: 01-31-2021 End: 03-24-1914Uzazbpo encounter procedureDarrin Bunting-Lab [place] Procedures DateProcedureProcedure DetailPerforming ClinicianStart: 75-04-0416Jdpcs X-ray of bilateral shouldersDarrin Bunting DO Work Phone: Start: 95-24-1796W-ray of both knees, standing views Vinay Bunting DO Work Phone: Start: 30-29-8048Lihfbmpssm elastography of liver Vinay Bunting DO Work Phone: Start: 39-78-1694JK lumbar spine wo conDarrin Bunting DO Work Phone: Start: 56-53-4380Vebuk cultureDarrin Bunting DO Work Phone: Start: 56-86-8728Oqjqixupi mammography of bilateral breastsDarrin Bunting DO Work Phone: Start: 61-62-1914X-ray of lumbar spine, six views including bending viewsDarrin Bunting DO Work Phone: Start: 68-38-2171UTHL-CoV-2, Influenza & RSV (PCR)DO Vinay Bunting Work Phone: Start: 35-94-6128Znxguqz ultrasonography of bilateral carotid arteriesDO Vinay Bunting Work Phone: Start: 65-69-7422RWY of headDO Vinay Bunting Work Phone: Start: 70-31-5821XU of head without contrastDO Vinay Bunting Work Phone: Start: 08-02-8302Usivj chest X-rayDO Vinay Bunting Work Phone: Start: 25-27-0370Wqyjxkvvukqkixb of bilateral kidneys DO Vinay Bunting Work Phone: Start: 28-76-2305Ppqmku tunnel syndrome (disorder) Verónica Ugarte Start: 54-23-9069Jzdis chest X-rayDO Vinay Bunting Work Phone: Start: 07-11-2609GRS of headDO Vinay Bunting Work Phone: Start: 24-69-2768IZ angiography of headDO Vinay Bunting Work Phone: Start: 28-83-7890AM angiography of neck vesselsDO Vinay Bunting Work Phone: Start: 05-91-3046FN of head without contrastDO Vinay Bunting Work Phone: Start: 91-30-6947Vkfxk chest X-rayDO Vinay Bunting Work Phone: Start: 07-63-3943Rxney cultureDO Vinay Bunting Work Phone: Start: 62-13-3621BhhoknpkquhTS Vinay Bunting Work Phone: Start: 86-35-9578Yifz energy X-ray absorptiometryDO Vinay Bunting Work Phone: Start: 93-91-6952Tuypm chest X-rayDO Vinay Bunting Work Phone: Start: 85-31-0461Qbliztynn mammography of bilateral breastsDO Vinay Bunting Work Phone: Start: 28-63-1387QqsxirhsiuqXxevpmn Windnagel ORTHOPEDIC BRACE MAKER Work Phone: Start: 11-48-7730DwvtoqhciueAgpeh SALAM Start: 38-49-4374IgbxgeckppvmsehioijtbysprwMtoco SALAM Start: 41-88-8416V-ray of both kneesDO Vinay Bunhomer Work Phone: Scar managementMaher RUSSELL Urine cultureDO Vinay Bunhomer Work Phone: Plan of Treatment DateCare ActivityDetailAuthorStart: 29-54-2939Rrxbbkmuq for malignant neoplasm of colonNOMS HealthcareStart: 89-16-5922Xijsibci ScreeningDiabetes Screening [facility] Centertart: 64-66-5299Pycuvhcc ScreeningDiabetes ScreeningMain Campus Medical Centertart: 17-42-1259Rffgbeee ScreeningDiabetes ScreeningUniversity Hospitals Health System Start: 63-46-8370Fgsxrbjp ScreeningDiabetes ScreeningMain Campus Medical Centertart: 59-74-0330Hgsgxhuk ScreeningDiabetes ScreeningMain Campus Medical Centertart: 01-28-2027 Diabetes ScreeningDiabetes ScreeningMain Campus Medical Centertart: 56-31-5220Vjceuhwn ScreeningDiabetes ScreeningMain Campus Medical Centertart: 65-92-2434JSNJQZRT SCREEN DIABETES SCREENMain Campus Medical Centertart: 13-76-1987CPLDZNLF SCREENDIABETES SCREEN [facility] Centertart: 42-62-1982Vaybqbmw blood countHemoglobin/Hematocrit [facility] Centertart: 38-63-5754Eyekssqwkb measurementSerum CreatinineMain Campus Medical Centertart: 53-91-1005PDMHMQRV SCREENDIABETES SCREENMain Campus Medical Centertart: 09-99-6679Ofinkemm blood countHemoglobin/HematocritMain Campus Medical Centertart: 81-56-6627Wqckdcmcvf measurementSerum CreatinineMain Campus Medical Centertart: 27-13-0369ECRKTCNH SCREENDIABETES SCREENMain Campus Medical Centertart: 10-07-2025 Complete blood countHemoglobin/HematocritMain Campus Medical Centertart: 10-07-2025 Creatinine measurementSerum CreatinineMain Campus Medical Centertart: 93-01-1551XXGNMDKA SCREENDIABETES SCREENMain Campus Medical Centertart: 08-04-2025 End: 82-73-4469Lixhak-up /19/2025 11:00 AM EDT Visit (SP) Office Hematology/Oncology [address] [place] [address] Daksha Bridges PA-C [address] [place] [address] 3 month follow up with Daksha and labHematology/OncologyComment on above:3 month follow up with Daksha and labStart: 08-04-2025 End: 13-88-1034Khkpcxx encounter fkjixldta49/19/2025 10:45 AM EDT Office Visit [facility] [address] [place] [address] 3 month follow up with Daksha and labNortSelect Specialty Hospital-Flint LaboratoryComment on above:3 month follow up with Daksha and lab Start: 33-16-0880Lqeyfrmqv vaccinationInfluenza Vaccine (#1)[facility] Start: 18-11-1254Wwthdgmo blood countHemoglobin/HematocritCleveland ClinicStart: 61-90-8961Psqhwdxxrr measurementSerum CreatinineCleveland ClinicStart: 06-26-2025 End: 16-04-3032Rwsxifr encounter zxfpqbuie29/11/2025 10:00 AM EDT Office Visit [facility] [address] [place] [address] Trudy Weiss PA [address] [place] [address] [facility] MEDICAL CENTERtart: 52-21-7627SldsacfdqPremier Health Upper Valley Medical Centertart: 21-44-8876Djhdqnnq blood countHemoglobin/HematocritCleveland ClinicStart: 77-01-0485Agqofoxogv measurementSerum CreatinineCleveland ClinicStart: 04-07-2025 End: 62-07-0550Rquptw-up irsbpqovp73/23/2025 2:00 PM EDT Visit (SP) Office Hematology/Oncology [address] [place], [place] [phone] Daksha Bridges PA-C [address] [place] [address] 3 month follow up with Daksha and labHematology/OncologyComment on above:3 month follow up with Daksha and labStart: 04-07-2025 End: 75-13-0367Xvfuvcj encounter wlcedaiye67/23/2025 1:45 PM EDT Office Visit [facility] [address] [place] [address] 3 month follow up with Daksha and labNortSelect Specialty Hospital-Flint LaboratoryComment on above:3 month follow up with Daksha and lab Start: 04-05-2025 End: 50-72-8470DRT W Auto Differential panel - BloodCOMPLETE BLOOD COUNT AND DIFFERENTIAL Lab Routine Iron deficiency anemia, unspecified iron deficiency anemia type Thrombocytopenia (HCC) Stage 3b chronic kidney disease (HCC) Expected: 04/05/2025 (Approximate), Expires: 07/05/2025leveland ClinicComment on above:Expected: 04/05/2025 (Approximate), Expires: 07/05/2025Start: 04-05-2025 End: 94-09-5471Ogfmffxgohzgf metabolic 2000 panel - Serum or PlasmaCOMPREHENSIVE METABOLIC PANEL Lab Routine Iron deficiency anemia, unspecified iron deficiency anemia type Thrombocytopenia (HCC) Stage 3b chronic kidney disease (HCC) Expected: 04/05/2025 (Approximate), Expires: 07/05/2025leveland ClinicComment on above:Expected: 04/05/2025 (Approximate), Expires: 07/05/2025Start: 04-05-2025 End: 07-78-2733Yftbgrge [Mass/volume] in Serum or PlasmaFERRITIN Lab Routine Iron deficiency anemia, unspecified iron deficiency anemia type Thrombocytopenia (HCC) Stage 3b chronic kidney disease (HCC) Expected: 04/05/2025 (Approximate), Expires: 07/05/2025leveland ClinicComment on above:Expected: 04/05/2025 (Approximate), Expires: 07/05/2025Start: 04-05-2025 End: 88-47-0802Qopf and Iron binding capacity panel - Serum or PlasmaIRON AND TIBC Lab Routine Iron deficiency anemia, unspecified iron deficiency anemia type Thrombocytopenia (HCC) Stage 3b chronic kidney disease (HCC) Expected: 04/05/2025 (Approximate), Expires: 07/05/2025[facility] Work Phone: Comment on above:Expected: 04/05/2025 (Approximate), Expires: 07/05/2025Start: 04-05-2025 End: 98-13-1151UTGINAHDDLWQ COUNTRETICULOCYTE COUNT Lab Routine Iron deficiency anemia, unspecified iron deficiency anemia type Thrombocytopenia (HCC) Stage 3b chronic kidney disease (HCC) Expected: 04/05/2025 (Approximate), Expires: 07/05/2025levelamerican healthcare systems ClinicComment on above:Expected: 04/05/2025 (Approximate), Expires: 07/05/2025Start: 03-06-2025 End: 72-55-3913Nxjupwo encounter procedureANA NASHVILLEComment on above:Arrived Start: 96-06-5214Zmtpsfjo blood countHemoglobin/HematocritMain Campus Medical Centertart: 36-37-8162Pppfxmkvyc measurementSerum CreatinineCleToledo Hospitaltart: 75-10-9764Aocbn screening for proteinDiabetes: Urine Protein ScreeningNorthwest Medical CenterStart: 01-06-2025 End: 18-56-0877Iqtajy-up zxptvpsaa36/21/2025 2:30 PM EST Visit (SP) Office Hematology/Oncology [address] [place] [phone] Daksha Bridges, PAGayleC [address] [place] [address] 3 month follow up with labHematology/OncologyComment on above:3 month follow up with labStart: 01-06-2025 End: 68-48-2819Zkjycvk encounter rzyfqezky86/21/2025 2:15 PM EST Office Visit [facility] [address] [place] [address] 3 month follow up with labNortSelect Specialty Hospital-Flint LaboratoryComment on above:3 month follow up with labStart: 01-03-2025 End: 11-44-7900Huphluq encounter procedureNOMS Y[place] STATE ROUTEComment on above:ArrivedStart: 01-02-2025 End: 15-51-1656ANW W Auto Differential panel - BloodCOMPLETE BLOOD COUNT AND DIFFERENTIAL Lab Routine Iron deficiency anemia, unspecified iron deficiency anemia type Expected: 01/02/2025, Expires: 04/03/2025[facility] Work Phone: Comment on above:Expected: 01/02/2025, Expires: 04/03/2025Start: 01-02-2025 End: 95-86-2275Gandtfvswfard metabolic 2000 panel - Serum or PlasmaCOMPREHENSIVE METABOLIC PANEL Lab Routine Iron deficiency anemia, unspecified iron deficiency anemia type Expected: 01/02/2025, Expires: 04/03/2025leveland ClinicComment on above:Expected: 01/02/2025, Expires: 04/03/2025Start: 01-02-2025 End: 44-07-5526Mwckgaog [Mass/volume] in Serum or PlasmaFERRITIN Lab Routine Iron deficiency anemia, unspecified iron deficiency anemia type Expected: 01/02, Expires: 04/03/2025leveland ClinicComment on above:Expected: 01/02/2025, Expires: 04/03/2025Start: 01-02-2025 End: 30-16-8271Ismq and Iron binding capacity panel - Serum or PlasmaIRON AND TIBC Lab Routine Iron deficiency anemia, unspecified iron deficiency anemia type Expected:01/02/2025, Expires: 04/03/2025leveland ClinicComment on above: Expected: 01/02/2025, Expires: 04/03/2025Start: 01-02-2025 End: 28-12-9329BYGAFMCXAHEO COUNTRETICULOCYTE COUNT Lab Routine Iron deficiency anemia, unspecified iron deficiency anemia type Expected: 01/02/2025, Expires: 04/03/2025[facility] ClinicComment on above:Expected: 01/02/2025, Expires: 04/03/2025Start: 22-51-4845Hhrbpblu identified in Urine by CultureUrine Culture [facility] Medical Centertart: 77-16-3076Aijbp culturePremier Health Upper Valley Medical Centertart: 12-05-2024 End: 82-25-3472Nbhxdtb encounter tfxhahpsl81/20/2025 8:40 AM EST Office Visit [facility] [place] [address] [place] [address] Queta Prieto, ORTHOPEDIC BRACE MAKER [address] [place] [address] [facility] [place] [facility] ROUTEStart: 11-16-2024 Advance Directive DiscussionAdvance Directive DiscussionClejoint township district memorial hospital ClinicStart: 01-01-2025Medicare Advantage Annual Wellness VisitMediMemorial Healthcare Annual Wellness VisitMain Campus Medical Centertart: 10-15-2024 End: 06-07-9094QBO W Auto Differential panel - BloodCOMPLETE BLOOD COUNT AND DIFFERENTIAL Lab Routine Iron deficiency anemia, unspecified iron deficiency anemia type Anemia of chronic renal failure, unspecified CKD stage Expected: 10/15/2024, Expires:01/14/2025[facility] Work Phone: Comment on above:Expected: 10/15/2024, Expires: 01/14/2025Start: 10-15-2024 End: 81-86-5274Enjwggtmcrrom metabolic 2000 panel - Serum or PlasmaCOMPREHENSIVE METABOLIC PANEL Lab Routine Iron deficiency anemia, unspecified iron deficiency anemia type Anemia of chronic renal failure, unspecified CKD stage Expected: 10/15/2024, Expires: 01/14/2025[facility] ClinicComment on above:Expected: 10/15/2024, Expires: 01/14/2025Start: 10-15-2024 End: 24-54-0202Zhbyaunv [Mass/volume] in Serum or PlasmaFERRITIN Lab Routine Iron deficiency anemia, unspecified iron deficiency anemia type Anemia of chron ic renal failure, unspecified CKD stage Expected: 10/15/2024, Expires: 01/14/2025leveland ClinicComment on above:Expected: 10/15/2024, Expires: 01/14/2025Start: 10-15-2024 End: 30-21-0409Gebm and Iron binding capacity panel - Serum or PlasmaIRON AND TIBC Lab Routine Iron deficiency anemia, unspecified iron deficiency anemia type Anemia ofchronic renal failure, unspecified CKD stage Expected: 10/15/2024, Expires: 5C[facility] ClinicComment on above:Expected: 10/15/2024, Expires: 01/14/2025Start: 10-15-2024 End: 32-64-5181OPZLJMNNRYAN COUNTRETICULOCYTE COUNT Lab Routine Iron deficiency anemia, unspecified iron deficiency anemia type Anemia of chronic renal failure, unspecified CKD stage Expected: 10/15/2024, Expires: 5[facility] Comment on above:Expected: 10/15/2024, Expires: 01/14/2025Start: 10-07-2024 End: 11-60-0103Mdukkb-up rfafrvbvf14/22/2024 2:30 PM EST Visit (SP) Office Hematology/Oncology [address] [place] [address] [address] [place], [place] [phone] Daksha Bridges PA-C [address] [place] [address] 3 month follow up with labHematology/OncologyComment on above:3 month follow up with labStart: 10-07-2024 End: 22-96-6668Mraccny encounter uicuvijew72/22/2024 2:15 PM EST Office Visit [facility] [address] [place] [address] [place] [address] 3 month follow up with labNortSelect Specialty Hospital-Flint LaboratoryComment on above:3 month follow up with labStart: 08-16-2024 End: 58-94-0041Fwjyhhl event monitorCardiac event monitor Cardiac Services Routine Transient ischemic attack Palpitations Expected: 08/16/2024 (Approximate), Expires: 08/16/2026[facility] Work Phone: comment on above:Expected: 08/16/2024 (Approximate), Expires: 08/16/2026Start: 08-16-2024 End: 86-50-0871Mtuxbju encounter nrdoncnpo71/01/2024 9:00 AM EDT Office Visit [address] [place] [address] Conner Queta C, [employer]THOP[employer] [address] [place] [address] ArrivedNOSD Y[facility]OV [facility] ROUTEComment on above:ArrivedStart: 67-06-8524Fgdqirkfrxvzn metabolic 2000 panel - Serum or PlasmaPremier Health Upper Valley Medical Centertart: 07-22-2024 End: 35-07-7187XmhxfijmrVeterans Health Administration CenterStart: 07-90-5301Gavqyzskfpi of acetylcholine receptor antibodyPremier Health Upper Valley Medical Centertart: 27-72-9833DympwdxrbPremier Health Upper Valley Medical Centertart: 27-54-0447Rsqczak ultrasonography of bilateral carotid arteriesUS carotid doppler [facility]ertart: 47-13-4679YK Brain WO contrastPremier Health Upper Valley Medical Centertart: 89-58-5666VOR of headMR head/brain wo [facility] CenterStart: 03-16-8377HF.doppler Carotid arteries - bilateralPremier Health Upper Valley Medical Centertart: 50-38-8038Abpaqbtw therapy procedurePremier Health Upper Valley Medical Centertart: 36-59-0521Dufmchaj to neurologistPremier Health Upper Valley Medical Centertart: 51-52-2317Qhroqcic to occupational therapist [facility] Centertart: 51-42-7081Tkkwqzzk to speech and language therapy servicePremier Health Upper Valley Medical Centertart: 07-21-2024 [facility] CenterStart: 88-93-0592Wznnkkjk admissionPremier Health Upper Valley Medical Centertart: 70-98-7266Utkvq-19 Vaccine ( season) Covid-19 Vaccine ( season)[facility]: 54-43-7084Bzoyv-19 Vaccine ( season)Covid-19 Vaccine ( season)[facility]: 43-14-3917Jplfowiuz vaccinationInfluenza Vaccine (#1)[facility]: 07-15-2024 End: 18-15-6221Uwwkgg-up misrotmqp86/30/2024 2:30 PM EDT Visit (SP) Office Hematology/Oncology [address] [place], [place] [phone] Daksha Bridges PA-C [address] [place] [address] 3 month follow up with labHematology/OncologyComment on above:3 month follow up with labStart: 07-15-2024 End: 33-33-9812Rolwcok encounter zlohhugyy23/30/2024 2:15 PM EDT Office Visit [facility] [address] [place] [address] 3 month follow up with labNortSelect Specialty Hospital-Flint LaboratoryComment on above:3 month follow up with labStart: 07-11-2024 End: 19-76-8267ECO W Auto Differential panel - BloodCOMPLETE BLOOD COUNT AND DIFFERENTIAL Lab Routine Iron deficiency anemia, unspecified iron deficiency anemia type Anemia of chronic renal failure, unspecified CKD stage Thrombocytopenia (HCC) Expected: 07/11/2024 (Approximate), Expires: 10/10/2024 [facility] Work Phone: Comment on above:Expected: 07/11/2024 (Approximate), Expires: 10/10/2024Start: 07-11-2024 End: 12-53-5722Jwvqnjwalsuiz metabolic 2000 panel - Serum or PlasmaCOMPREHENSIVE METABOLIC PANEL Lab Routine Iron deficiency anemia, unspecified iron deficiency anemia type Anemia of chronic renal failure, unspecified CKD stage Thrombocytopenia (HCC) Expected: 07/11/2024 (Approximate), Expires: 10/10/2024 [facility] SystemComment on above:Expected: 07/11/2024 (Approximate), Expires: 10/10/2024Start: 07-11-2024 End: 92-47-8310Acijyqbx [Mass/volume] in Serum or PlasmaFERRITIN Lab Routine Iron deficiency anemia, unspecified iron deficiency anemia type Anemia of chron ic renal failure, unspecified CKD stage Thrombocytopenia (HCC) Expected: 07/11/2024 (Approximate), Expires: 10/10/2024[facility] ClinicComment on above: Expected: 07/11/2024 (Approximate), Expires: 10/10/2024Start: 07-11-2024 End: 34-90-4761Wavw and Iron binding capacity panel - Serum or PlasmaIRON AND TIBC Lab Routine Iron deficiency anemia, unspecified iron deficiency anemia type Anemia ofchronic renal failure, unspecified CKD stage Thrombocytopenia (HCC) Expected: 07/11/2024 (Approximate), Expires: 10/10/2024[facility] ClinicComment on above:Expected: 07/11/2024 (Approximate), Expires: 10/10/2024Start: 07-11-2024 End: 84-40-3513YWCQNVUYJEZU COUNTRETICULOCYTE COUNT Lab Routine Iron deficiency anemia, unspecified iron deficiency anemia type Anemia of chronic renal failure, unspecified CKD stage Thrombocytopenia (HCC) Expected: 07/11/2024 (Appro ximate), Expires: 10/10/2024[facility] ClinicComment on above:Expected: 07/11/2024 (Approximate), Expires: 10/10/2024Start: 04-30-2024 End: 20-72-8610QGN W Auto Differential panel - BloodCBC + DIFF Lab Routine Stage 3b chronic kidney disease (HCC) Iron deficiency anemia secondary to inadequate dietary iron intake Expected: 04/30/2024 (Approximate), Expires: 07/30/2024 [facility] Work Phone: Comment on above:Expected: 04/30/2024 (Approximate), Expires: 07/30/2024Start: 04-30-2024 End: 18-82-4262Jdqspyaktcgdi metabolic 2000 panel - Serum or PlasmaCOMP METABOLIC PANEL Lab Routine Stage 3b chronic kidney disease (HCC) Iron deficiency anemia secondary to inadequate dietary iron intake Expected: 04/30/2024 (Approximate), Expires: 07/30/2024[facility] Work Phone: Comment on above:Expected: 04/30/2024 (Approximate), Expires: 07/30/2024Start: 04-30-2024 End: 36-21-1250Akaaadym [Mass/volume] in Serum or PlasmaFERRITIN BLD Lab Routine Stage 3b chronic kidney disease (HCC) Iron deficiency anemia secondary to i nadequate dietary iron intake Expected: 04/30/2024 (Approximate), Expires: 07/30/2024[facility] Work Phone: Comment on above:Expected: 04/30/2024 (Approximate), Expires: 07/30/2024Start: 04-30-2024 End: 77-27-8329Ydsq and Iron binding capacity panel - Serum or PlasmaIRON + TIBC Lab Routine Stage 3b chronic kidney disease (HCC) Iron deficiency anemia secondary to inadequate dietary iron intake Expected: 04/30/2024 (Approximate), Expires: 07/30/2024[facility] Work Phone: Comment on above:Expected: 04/30/2024 (Approximate), Expires: 07/30/2024Start: 26-45-0402Nvjahyn Directive DiscussionAdvance Directive DiscussionMain Campus Medical Centertart: 73-54-9179Claanyttau Health Screening Behavioral Health ScreeningMain Campus Medical Centertart: 30-87-1249Txfcfqiczf AssessmentDepression AssessmentMain Campus Medical Centertart: 08-01-2023 End: 68-37-0405NMC W Auto Differential panel - BloodCBC + DIFF Lab Routine Iron deficiency anemia secondary to inadequate dietary iron intake Expected: 08/01/2023 (Approximate), Expires: 10/01/2023[facility] Work Phone: Comment on above:Expected: 08/01/2023 (Approximate), Expires: 10/01/2023Start: 08-01-2023 End: 81-74-6040Issglckhvkslv metabolic 2000 panel - Serum or PlasmaCOMP METABOLIC PANEL Lab Routine Iron deficiency anemia secondary to inadequate dietary iron intakeExpected: 08/01/2023 (Approximate), Expires: 10/01/2023 [facility] Work Phone: Comment on above:Expected: 08/01/2023 (Approximate), Expires: 10/01/2023Start: 08-01-2023 End: 67-09-4754Qpiosrej [Mass/volume] in Serum or PlasmaFERRITIN BLD Lab Routine Iron deficiency anemia secondary to inadequate dietary iron intake Expected: 08/01/2023 (Approximate), Expires: 10/01/2023[facility] Work Phone: Comment on above:Expected: 08/01/2023 (Approximate), Expires: 10/01/2023Start: 08-01-2023 End: 29-71-8665Fcmd and Iron binding capacity panel - Serum or PlasmaIRON + TIBC Lab Routine Iron deficiency anemia secondary to inadequate dietary iron intake Expected: 08/01/2023 (Approximate), Expires: 10/01/2023[facility] Work Phone: Comment on above:Expected: 08/01/2023 (Approximate), Expires: 10/01/2023Start: 07-24-2023 End: 83-53-5048XOO W Auto Differential panel - BloodCBC + DIFF Lab Routine Iron deficiency anemia secondary to inadequate dietary iron intake Stage 3b chronic kidney disease (HCC) Expected: 07/24/2023, Expires: 09/23/2023[facility] Work Phone: Comment on above:Expected: 07/24/2023, Expires: 09/23/2023Start: 07-24-2023 End: 52-50-6926Vgvdnponooamt metabolic 2000 panel - Serum or PlasmaCOMP METABOLIC PANEL Lab Routine Iron deficiency anemia secondary to inadequate dietary iron intakeStage 3b chronic kidney disease (HCC) Expected: 07/24/2023, Expires: 09/23/2023[facility] Work Phone: Comment on above:Expected: 07/24/2023, Expires: 09/23/2023Start: 07-24-2023 End: 81-99-3532Aralhwkm [Mass/volume] in Serum or PlasmaFERRITIN BLD Lab Routine Iron deficiency anemia secondary to inadequate dietary iron intake Stage 3b chronic kidney disease (HCC) Expected: 07/24/2023, Expires: 09/23/2023[facility] Work Phone: Comment on above:Expected: 07/24/2023, Expires: 09/23/2023Start: 07-24-2023 End: 05-02-9452Gwfo and Iron binding capacity panel - Serum or PlasmaIRON + TIBC Lab Routine Iron deficiency anemia secondary to inadequate dietary iron intake Stage 3bchronic kidney disease (HCC) Expected: 07/24/2023, Expires: 09/23/2023 [facility] Work Phone: Comment on above:Expected: 07/24/2023, Expires: 09/23/2023Start: 16-46-5656Nbjzt-19 Vaccine ()Covid-19 Vaccine ()[facility]: 61-50-2572Rhlnsjxgk vaccination [facility]: 05-09-2023 End: 61-80-3289ORG W Auto Differential panel - BloodCBC + DIFF Lab Routine Iron deficiency anemia secondary to inadequate dietary iron intake Expected: 05/09/2023 (Approximate), Expires: 07/09/2023[facility] Work Phone: Comment on above:Expected: 05/09/2023 (Approximate), Expires: 07/09/2023Start: 05-09-2023 End: 26-15-9407Qeqkxxtbmqppd metabolic 2000 panel - Serum or PlasmaCOMP METABOLIC PANEL Lab Routine Iron deficiency anemia secondary to inadequate dietary iron intakeExpected: 05/09/2023 (Approximate), Expires: 07/09/2023 [facility] Work Phone: Comment on above:Expected: 05/09/2023 (Approximate), Expires: 07/09/2023Start: 05-09-2023 End: 52-06-4257Fxmagbdr [Mass/volume] in Serum or PlasmaFERRITIN BLD Lab Routine Iron deficiency anemia secondary to inadequate dietary iron intake Expected: 05/09/2023 (Approximate), Expires: 07/09/2023[facility] Work Phone: Comment on above:Expected: 05/09/2023 (Approximate), Expires: 07/09/2023Start: 05-09-2023 End: 30-51-2923Hhxi and Iron binding capacity panel - Serum or PlasmaIRON + TIBC Lab Routine Iron deficiency anemia secondary to inadequate dietary iron intake Expected: 05/09/2023 (Approximate), Expires: 07/09/2023[facility] Work Phone: Comment on above:Expected: 05/09/2023 (Approximate), Expires: 07/09/2023Start: 66-59-3532YsvecxvkoPremier Health Upper Valley Medical Centertart: 15-59-6517Cdynkrmn therapy procedurePremier Health Upper Valley Medical Centertart: 88-98-5859Ohkpmdsh admissionPremier Health [facility] Medical Centertart: 03-11-2023 Referral to neurologistPremier Health Upper Valley Medical Centertart: 02-09-2023 End: 00-75-5555ZOG W Auto Differential panel - BloodCBC + DIFF Lab Routine Iron deficiency anemia secondary to inadequate dietary iron intake Expected: 02/09/2023 (Approximate), Expires: 04/11/2023[facility] Work Phone: Comment on above:Expected: 02/09/2023 (Approximate), Expires: 04/11/2023Start: 02-09-2023 End: 97-45-2695Thzjrhvdzxmyq metabolic 2000 panel - Serum or PlasmaCOMP METABOLIC PANEL Lab Routine Iron deficiency anemia secondary to inadequate dietary iron intakeExpected: 02/09/2023 (Approximate), Expires: 04/11/2023 [facility] Work Phone: Comment on above:Expected: 02/09/2023 (Approximate), Expires: 04/11/2023Start: 02-09-2023 End: 72-72-3014Atfdbnwi [Mass/volume] in Serum or PlasmaFERRITIN BLD Lab Routine Iron deficiency anemia secondary to inadequate dietary iron intake Expected: 02/09/2023 (Approximate), Expires: 04/11/2023[facility] Work Phone: Comment on above:Expected: 02/09/2023 (Approximate), Expires: 04/11/2023Start: 02-09-2023 End: 61-82-7352Bjlb and Iron binding capacity panel - Serum or PlasmaIRON + TIBC Lab Routine Iron deficiency anemia secondary to inadequate dietary iron intake Expected: 02/09/2023 (Approximate), Expires: 04/11/2023[facility] Work Phone: Comment on above:Expected: 02/09/2023 (Approximate), Expires: 04/11/2023Start: 02-06-2023 End: 46-55-4636YUQ W Auto Differential panel - BloodCBC + DIFF Lab Routine Iron deficiency anemia secondary to inadequate dietary iron intake Expected: 02/06/2023, Expires: 04/08/2023[facility] Work Phone: Comment on above:Expected: 02/06/2023, Expires: 04/08/2023Start: 02-06-2023 End: 97-51-2063Bqdcqmuurpgtb metabolic 2000 panel - Serum or PlasmaCOMP METABOLIC PANEL Lab Routine Iron deficiency anemia secondary to inadequate dietary iron intakeExpected: 02/06/2023, Expires: 04/08/2023[facility] Work Phone: Comment on above:Expected: 02/06/2023, Expires: 04/08/2023Start: 02-06-2023 End: 89-70-7824Bqpx and Iron binding capacity panel - Serum or PlasmaIRON + TIBC Lab Routine Iron deficiency anemia secondary to inadequate dietary iron intake Expected: 02/06/2023, Expires: 04/08/2023[facility] Work Phone: Comment on above:Expected: 02/06/2023, Expires: 04/08/2023Start: 33-61-6028WpiqgrvfwPremier Health Upper Valley Medical Centertart: 11-27-2022 End: 21-65-6207VLD W Auto Differential panel - BloodCBC + DIFF Lab Routine Anemia, unspecified type Iron deficiency anemia secondary to inadequate dietary iron intake Expected: 11/27/2022, Expires: 01/27/2023[facility] Work Phone: Comment on above:Expected: 11/27/2022, Expires: 01/27/2023Start: 11-27-2022 End: 21-66-5688Usyujuglfimzr metabolic 2000 panel - Serum or PlasmaCOMP METABOLIC PANEL Lab Routine Anemia, unspecified type Iron deficiency anemia secondary to inadequate dietary iron intake Expected: 11/27/2022, Expires: 01/27/2023[facility] Work Phone: Comment on above:Expected: 11/27/2022, Expires: 01/27/2023Start: 11-27-2022 End: 44-43-5420Oqttbnof [Mass/volume] in Serum or PlasmaFERRITIN BLD Lab Routine Anemia, unspecified type Iron deficiency anemia secondary to inadequate dietary iron intake Expected: 11/27/2022, Expires: 01/27/2023[facility] Work Phone: Comment on above:Expected: 11/27/2022, Expires: 01/27/2023Start: 11-27-2022 End: 28-87-4590Jqko and Iron binding capacity panel - Serum or PlasmaIRON + TIBC Lab Routine Anemia, unspecified type Iron deficiency anemia secondary to inadequate dietary iron intake Expected: 11/27/2022, Expires: 01/27/2023 [facility] Work Phone: Comment on above:Expected: 11/27/2022, Expires: 01/27/2023Start: 15-34-4050GLSEKIW DIRECTIVE DISCUSSIONADVANCE DIRECTIVE DISCUSSIONMain Campus Medical Centertart: 50-66-2684JTOWOYZHBJ ASSESSMENTDEPRESSION ASSESSMENTMain Campus Medical Centertart: 10-29-2022 End: 24-49-3507ROYIURWQJC PROTEIN, SERUM (BLOOD)MONOCLONAL PROTEIN, SERUM (BLOOD) Lab Routine Anemia, unspecified type Expected: 10/29/2022 (Approximate), Expires: 12/29/2022[facility] Work Phone: Comment on above:Expected: 10/29/2022 (Approximate), Expires: 12/29/2022Start: 10-29-2022 End: 79-68-9777OUWHETR ELECTROPHORESIS SERUM W/INTERPPROTEIN ELECTROPHORESIS SERUM W/INTERP Lab Routine Anemia, unspecified type Expected: 10/29/2022 (Ap proximate), Expires: 12/29/2022[facility] Work Phone: Comment on above:Expected: 10/29/2022 (Approximate), Expires: 12/29/2022Start: 10-01-2022 End: 41-24-5293Bjaxbtpey (Vitamin B12) [Mass/volume] in Serum or [facility] Work Phone: Comment on above:Expected: 10/01/2022, Expires: 12/01/2022Start: 10-01-2022 End: 18-39-5985Gpspxuub [Mass/volume] in Serum or [facility] Work Phone: Comzldz on above:Expected: 10/01/2022, Expires: 10/01/2023Start: 10-01-2022 End: 01-47-1885Nyxpfk [Mass/volume] in Serum or [facility] Work Phone: Comment on above:Expected: 10/01/2022, Expires: 12/01/2022Start: 10-01-2022 End: 11-92-2616Swuh and Iron binding capacity panel - [facility] or [facility] Work Phone: Comgoyh on above:Expected: 10/01/2022, Expires: 10/01/2023Start: 10-01-2022 End: 35-57-2502CGBTFEG ELECT RND UR W/INTERPCFisher-T[facility] Medical Center Work Phone: Comment on above:Expected: 10/01/2022, Expires: 12/01/2022Start: 10-01-2022 End: 43-69-4227Jajy [Mass/volume] in Serum or [facility] Work Phone: Comxwnz on above:Expected: 10/01/2022, Expires: 12/01/2022Start: 79-41-3819Bcrvhtfzp vaccinationINFLUENZA (#1)[facility] Start: 81-58-2728DRWFVHV DIRECTIVE DISCUSSIONADVANCE DIRECTIVE DISCUSSION [facility]: 77-33-0322AMCSGXVOTV ASSESSMENTDEPRESSION ASSESSMENT [facility]: 33-42-9100BCVPN-19 VACCINE (4 - Booster for Pfizer series)COVID-19 VACCINE (4 - Booster for Pfizer series)[facility]: 97-61-7585IUXBV-19 VACCINE (4 - Pfizer series)COVID-19 VACCINE (4 - Pfizer series)[facility]: 47-48-2919Ydfzyphdchlf Vaccine: 50+ (2 of 2 - PCV) Pneumococcal Vaccine: 50+ (2 of 2 - PCV)[facility]: 08-16-2019 Pneumococcal Vaccine: 65+ (2 - PCV)Pneumococcal Vaccine: 65+ (2 - PCV)[facility]: 19-41-9332Qwuyxrzgrecl Vaccine: 65+ (2 of 2 - PCV)Pneumococcal Vaccine: 65+ (2 of 2 - PCV)[facility]: 37-22-0930Iuqbebdahtyh Vaccine: 65+ Years (2 of 2 - PCV)Pneumococcal Vaccine: 65+ Years (2 of 2 - PCV) [facility]: 43-08-9705REXUHQYTDTTI: 65+ (2 - PCV)PNEUMOCOCCAL: 65+ (2 - PCV)[facility]: 81-31-0056FZVO DENSITYBONE DENSITYUniversity Hospitals Health System Start: 52-58-3217Zknk Density ScreeningBone Density ScreeningUniversity Hospitals Health System Start: 53-28-3475TCKRJEEMWHHU: 65+ (1 - PCV)PNEUMOCOCCAL: 65+ (1 - PCV)[facility]: 86-87-3959Vxatvwmnn for osteoporosisBone Density Screening [facility]: 97-37-6821LHC Vaccine (1 - 1-dose 60+ series)RSV Vaccine (1 - 1-dose 60+ series)[facility]: 32-07-7192ZBPKYNMT VACCINE (1 of 2)SHINGRIX VACCINE (1 of 2)[facility]: 17-68-8272YXUBGZGGG (FIT-DNA) COLOGUARD (FIT-DNA)[facility]: 65-44-2461RlpmstdrzcnTAWTVTVYIHW [facility]: 38-91-9617VKTBXHPEBQ CANCER SCREENINGCOLORECTAL CANCER SCREENINGMain Campus Medical Centertart: 51-52-5028TN COLONOGRAPHYCT COLONOGRAPHY [facility]: 58-01-6416KJGBEPGY SCREENDIABETES SCREENUniversity Hospitals Health System Start: 38-97-1175WUETC OCCULT BLOODFECAL OCCULT BLOODMain Campus Medical Centertart: 23-09-2994Dkltx 1996 panel - Serum or PlasmaLipid ScreeningUniversity Hospitals Health System Start: 77-05-9081Xinrf panelLipid ScreeningMain Campus Medical Centertart: 1993 LIPID SCREENLIPID SCREENMain Campus Medical Centertart: 09-74-3750Isdamqwyr for malignant neoplasm of colonMain Campus Medical Centertart: 02-57-0610XKRTYLEMYNARGRJRLCNYIYAYQO [facility]: 97-98-4444KzrxspygjvjDmgamvaim ClinicStart: 1967 Urine microalbumin profileMain Campus Medical Centertart: 42-65-8049Qbpyc screening for proteinDiabetes: Urine Protein ScreeningNorthwest Medical CenterStart: 48-21-9683Jruqdx PCP Team Chronic Disease VisitAnnual PCP Team Chronic Disease VisitMain Campus Medical Centertart: 12-65-4697Mxyoyvf ScreeningAnxiety ScreeningMain Campus Medical Centertart: 79-67-8055Iabmxzfafm ScreeningDepression ScreeningMain Campus Medical Centertart: 95-77-4567YTXGKJQJW C SCREENINGHEPATITIS C SCREENINGMain Campus Medical Centertart: 24-87-1426Hgkwjddgq C screeningHepatitis C ScreeningMain Campus Medical Centertart: 41-37-1183Jjlnhltu screeningDiabetes: Retinopathy ScreeningNorthwest Medical CenterStart: 53-68-6028RNIEV-19 VACCINE (#1)COVID-19 VACCINE (#1)[facility]: 77-40-1565Gwafehozyx A1c measurementDiabetes: Hemoglobin R9UKUDHNorthwest Medical Center Start: 18-96-2777Ooxmaiywj for malignant neoplasm of colonNorthwest Medical Center Acetylcholine receptor blocking Ab/Acetylcholine Ab.total in SerumMercy Health St. Charles HospitalBacteria identified in Urine by CultureMercy Health St. Charles HospitalMONOCLONAL PROTEIN, SERUM (BLOOD)MONOCLONAL PROTEIN, SERUM (BLOOD) Lab Routine Anemia, unspecified type 10/01/2022 12:19 PM [facility] Work Phone: Muscle specific receptor tyrosine kinase Ab [Units/volume] in Serum by ImmunoassayMercy Health St. Charles HospitalPatient EducationVeterans Health Administration Ctr Work Phone: Patient referralVeterans Health Administration Ctr Work Phone: PROTEIN ELECTROPHORESIS SERUM W/INTERPPROTEIN ELECTROPHORESIS SERUM W/INTERP Lab Routine Anemia, unspecified type 10/01/2022 12:19 PM [facility] Work Phone: Renal function 1999 panel - Serum or PlasmaMercy Health St. Charles HospitalRenal function 1999 panel - Serum or [facility] CenterRenal function 1999 panel - Serum or [facility] CenterRenal function 1999 panel - Serum or [facility] CenterUS Kidney - bilateralMercy Health St. Charles Hospital Varicella zoster virus DNA [Presence] in Cerebral spinal fluid by DIPESH with probe detectionBaptist Memorial Hospital Immunizations Immunization DateImmunizationNotesCare HondbwqwWlbkffrt85-31-5577qroplevvn virus vaccine, unspecified formulationVerónica Ugarte [phone]-LhvdoBerger Hospital Majwep22-31-2583 influenza (HD-IIV4) vaccine, age 65+ yr, high dose, quadrivalent, PF (FLUZONE HIGH-DOSE)Daksha Bridges PA-C Work Phone: [facility] Health SystemIvqene63-33-7028vcfafcsac virus vaccine, unspecified formulationNisa Shepherd [phone]-LghbyMercy Health [facility] Digestive Xsybye27-26-1774 influenza virus vaccine, unspecified formulationNisa Shepherd [phone]-OmowjBerger Hospital Wdwqjp19-70-4474 influenza, high-dose, quadrivalent vaccine (FLUZONE HIGH DOSE QUADRIVALENT)Henry Walker MD Work Phone: [facility] SystemXhbipr60-66-0564mwasddxbo virus vaccine, unspecified formulationNisa Shepherd [phone]-DhuxuBarnesville Hospital11-11-2021 influenza, high-dose, quadrivalent vaccine (FLUZONE HIGH DOSE QUADRIVALENT)Henry Walker MD Work Phone: [facility] Health SystemJwaprp43-24-5614QYKT-UoF-9 (COVID-19) mRNA BNT-162b2 Yoan Shepherd [phone]-PlllhBerger Hospital HealthComment on above:Result Comment: 2022-09-18: WGE2072-37-6218RUTP-BqZ-2 (COVID-19) mRNA BNT- 162b2 Yoan Ruth [phone]-KacceBarnesville Hospital03-01-2021 SARS-CoV-2 (COVID-19) mRNA BNT-162b2 Yoan Chatmanmetz [phone]-ZybsyBarnesville Hospital10-01-2018 influenza nasal, unspecified formulationHenry Walker MD Work Phone: [facility] Health SystemZtisay26-17-2084moxjtogqi virus vaccine, unspecified formulationNisa Shepherd [phone]-OiwoaBarnesville Hospital10-01-2018 influenza, injectable, quadrivalent, preservative freeDaksha Bridges PA-C Work Phone: [facility] SystemFhgmbr96-07-9797qxerdxkdzprw polysaccharide vaccine, 23 valentBemesha Shepherd [phone]-FbdeoBarnesville Hospital11-03-2016 influenza virus vaccine, unspecified formulationNisa Shepherd [phone]-PlghuBarnesville Hospital11-03-2016 influenza, high dose seasonal, preservative-freeHenry Walker MD Work Phone: [facility] SystemImrznv17-76-1823baljhvozl virus vaccine, unspecified formulationNisa Shepherd [phone]-HzxljBerger Hospital Wsrhuy70-88-0982 influenza, seasonal, Shamika Walker MD Work Phone: [facility] Payers DatePayer CategoryPayerPolicy [id number] [id number] 2024Medicare (Managed Care)[facility] [id number] Health InsuranceCARTERET HEALTH CAREO Member Subscriber Plan / Payer (Effective 2023-Present) Name: Anh Tejeda Member ID: [id number] Relation to Subscriber: Self Name: Anh Tejeda Subscriber ID: [id number] Payer ID: Not on file Group ID: Not on file Type: HMO Address: [address] [place] [id number] 2024Medicare [id number] [id number] 2.16.840.1.513719.3.579.[id number] 2.16.840.1.269387.3.579.2.73679-65-1975Zdfqbjm6621885 2.16.840.1.815462.3.579.2.01727-07-7355Udwevfg9026469 2.16.840.1.694520.3.579.2.41558-55-1911Qiiblep5123533 2.16.840.1.017919.3.579.2.32080-90-7143Rfvxzoe3841260 2.16.840.1.404336.3.579.2.25138-03-2393Gztcdoi853584966 2.16.840.1.544424.3.579.2.18128-95-5789Mbuizlz701583540 2.16.840.1.945286.3.579.2.04276-74-5312Dtstgfa73645632 2.16.840.1.221102.3.579.2.36424-02-4478Grpvudk15228924 2.16.840.1.493145.3.579.2.72858-44-2404Pxbvewp78535401 2.16.840.1.600084.3.579.2.58248-42-4330Alhhxvg841534601 2.16.840.1.540762.3.579.2.77602-54-3442Sdqikqt807787907 2.16.840.1.859629.3.579.2.6[id number] 2..1.265414.3.579.2.81703-06-0288Cfezezd43351647 2..1.640063.3.579.2.735717-89-5271Yqssstc0886607 2..1.797907.3.579.2.952640-80-0249Itsvzyz5038973 2..1.085619.3.579.2.340820-23-2591Wiqqher1180140 2..1.029790.3.579.2.418720-63-7038Qjytnxk2617024 2..1.357839.3.579.2.826498-77-1354Iwvdllx15940759 2..1.927626.3.579.2.51404-22-9658Fobnwfa64125035 2..1.31[id number]/HFA/FAP [id number]-902q-021e-1hl0-hbtm9v3d5r19Ddusznw91740101 2..1.192403.3.579.2.947Bwwtxpk00498336 2..1.245431.3.579.2.531 [id number] 2..1.376976.3.579.2.845Eicbkkj89272360 2.16.840.1.070865.3.579.2.080Rpqekax96726348 2.16.840.1.001232.3.579.2.531 Qysynlp32588184 2.16.840.1.076406.3.579.2.198Hfxivqb28717739 2.16.840.1.216173.3.579.2.169Wqswywi82623973 2.16.840.1.477863.3.579.2.531 Xjlftrr72491873 2.16.840.1.726636.3.579.2.531 Social History DateTypeDetailFacilityStart: 12-26-2017 End: 69-09-8599Svnbntm smoking status NHISNever smoked tobacco (finding) [facility] CtrStart: 87-76-2378Rbl Assigned At [facility]Fe[facility] CompanyTobacco smoking statusNeverMer[facility] Start: 05-01-2023 End: 66-49-2689Otc Assigned At [facility] Start: 09-26-2022 End: 77-58-5545Fcgfmqm use and exposureSmokeless tobacco non-userMain Campus Medical Centertart: 43-44-3422Sarwdoe intakeEx-drinker (finding)[facility] Centertart: 82-21-6776Cxg Assigned At BirthNot on fileUniversity Hospitals Health SystemHistory of tobacco use Passive smokerMain Campus Medical Centertart: 10-01-2022 End: 44-92-0004Dxqbjqk intakeLifetime non-drinker (finding)[facility] Start: 09-21-2022 End: 08-26-9155Ijbwlvgm to SARS-CoV-2 (event)Not sureMain Campus Medical Centertart: 05-01-2023 End: 27-35-6913Cbcggpi of Social functionMain Campus Medical Centertart: 03-29-2024 End: 24-98-4890Cirrzikvn beverage intakeDeferNOSD HealthcareStart: 02-09-2024 Alcohol Commentcaffeine intake: 1-2 cups per dayNOSD HealthcareStart: 01-11-2024 Gender identityIdentifies as female gender (finding)[facility] HealthcareStart: 76-48-6606Ypcgks orientationChoose not to discloseNOSD HealthcareStart: 01-19-2022 End: 05-40-0800JaoOsbjll (finding)[facility] Medical Centerexual OrientationAdena Health System Goals DatePatient GoalDesired Activity/State Functional Status RoucQfktadwiqeLzjakxZoapmixa88-71-3659Uynamrfiqr StatusN/[facility] Mgwpqw55-50-4593Tpnbwuckei StatusN/[facility] Hfdmru27-37-0301Mhsrsbhcbz statusPatient at BaselineC[facility] Work Phone: [phone] 429-370809248035-51-7552Kcdbnsatgv statusPatient at Baseline [facility] Work Phone: [phone]) [phone]mdnswdvzb StatusN/[facility] Fzookt49-30-2137Wvaqbelqlq StatusN/[facility] Gflqvb75-18-9497Wbmnzeehfz StatusN/[facility] Bxykxv06-90-7294Wzzrjhcciw statusPatient at BaselineCleveland Clinic [facility] Work Phone: [phone]) [phone]rtcrmpgdp statusDisability Status Patient at BaselineC[facility] Work Phone: 1(342) 213-651002788628-12-4618Gzavcvbrvl StatusN/[facility]ive Mvhzgt14-65-0717Dutoluedew StatusNoAdena Health System07-28-2022Functional StatusN/[facility] Mental Status QaxpXxiwgtemiqKxvrbvWhxlljlo08-01-6737Dweliincu functionCognitive Status Patient at BaselineC[facility] Work Phone: [phone] 112-339309-149288-80-9349Chbbfqlua functionCognitive Status [facility] at BaselineC[facility] Work Phone: 1([phone]) 623-215204-782621-58-3028Glpkzmduj functionCognitive Status Patient at BaselineVeterans Health Administration Ctr Work Phone: Clinical Notes 06-12-2022 to 08-07-2025 Note Date & CkyxYwgkXjehxbhy61-39-0889 NoteHNO ID: [id number] Author: DAKSHA BRIDGES PA-C Service: ? Author Type: Physician Cab Station Attendant Type: Progress Notes Filed: 08/07/2025 10:50 Note Text: Hematology Progress Note PATIENT NAME: Anh Tejeda CLINIC NO.: [id number] ATTENDING PHYSICIAN: Henry Walker MD DATE OF [...] 5.85 3.70 - 11. (more content not included)...[facility]08-20-2025 Evaluation note* Diagnosis Onset Date Resolution Status Admit Date Anemia of renal disease acuteJuly 05, 2025 9:42amChronic kidney disease, stage III (moderate)acute July 05, 2025 9:42amHyperlipidemiaacuteAugust 2024 9:42am HypomagnesemiaacuteAugust 2024 9:42amSecondary hyperparathyroidismacute July 05, 2025 9:42amType 2 diabetes mellitus with diabetic chronic kidney diseaseacuteAugus2024 9:42amHypertensive chronic kidney disease with stage 1 through stage 4 chronic kichronicAugust 2024 9:42am [facility] Work Phone: 1(153) 869-466708-20-2025 Evaluation note* Diagnosis Onset Date Resolution Status [...] acuteSept2024 9:10amLacunar infarctionacuteSept2024 9:10am PolyneuropathyacuteSept2024 9:10amSyncopeacuteSept2024 9:10am [facility] Work Phone: 1([phone] 353-629807-23-2025 History of Present illness Narrative* Jenny Watson [...] family situations. Patient indicated understanding. I did baby counselor the patient and her brother on processing and getting patient's attention before talking to her. She will continue as needed. Cosigned by BETH Hodgson at 06/08/2025 11:43 AM EDT documented in this encounterNorthwest Medical CenterXzxrihvxud53-81-5011 History of Present illness Narrative* Daksha Bridges PA-C - 04/25/2025 11:00 AM EDT Hematology Progress Note PATIENT NAME: Anh Tejeda [facility] NO.: [id number] ATTENDING PHYSICIAN: Henry Walker MD DATE OF [...] Range Status 04/18/2025 6.4 % Final Abs [place] Date Value Ref Range Status 04/18/2025 0.36 [...] monitoring of renal function. - Follow-up with wood experimental mechanic Dr. Giles in June. 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 Should this worsen, especially in the setting of anemia with normal iron stores, would need to consider further workup. Platelets seh085 4. Polyneuropathy: negative SPEP/MPA in 2021. Some improvement with carpal tunnel repair. Return in 3 months with repeat labs Daksha Bridges PA-C CC: Nisa Shepherd CNP I spent a total of 20 minutes on the date of the service which included preparing to see the patient, quas-kn-yglz patient care, completing clinical documentation, performing a medically appropriate examination, counseling and educating the patient/family/caregiver, ordering medications, tests, or p rocedures, independently interpreting results (not separately reported), communicating results to the patient/family/caregiver, and care coordination (not separately reported). documented in this encounterUniversity Hospitals Health System06-10-2025 NoteHNO ID: [id number] Author: DAKSHA BRIDGES PA-C Service: ? Author Type: Physician Cab Station Attendant Type: Progress Notes Filed: 04/25/2025 11:19 Note Text: Hematology Progress Note PATIENT NAME: Anh Tejeda [facility] NO.: [id number] ATTENDING PHYSICIAN: Henry Walker MD DATE OF [...] (mmol/L) Date Value 04/18/20 (more content not included)...[facility]05-27-2025 Telephone encounter Note* Telephone Encounter - Stacey Estrada - 04/11/2025 9:59 AM EDT Spoke to Anh, labs 04/18 at 1130 and follow up 04/25 at 11am. [facility]05-27-2025 Miscellaneous Notes* Telephone Encounter - [...] Mcmahan RN documented in this encounterUniversity Hospitals Health System05-27-2025 Telephone encounter Note * Telephone Encounter - Samantha Mcmahan RN - 04/11/2025 9:52 AM EDT Daksha wants labs in the next 1-2 weeks and follow up 1 week after they are drawn to review results. Samantha Mcmahan RN [facility]05-27-2025 Telephone encounter Note* Telephone Encounter - Stacey Estrada - 04/11/2025 9:47 AM EDT Patient is scheduled for 06/28 now, is that ok or does she need moved up? [facility]05-27-2025 Telephone encounter Note* Telephone Encounter - Samantha Mcmahan RN - 04/11/2025 9:15 AM EDT Pt aware and agreeable to plan of care. She denies questions, needs or concerns at this time. PSS: Please call to schedule labs /follow up per MM below. Samantha Mcmahan RN [facility]05-23-2025 NoteHNO ID: [id number] Author: DAKSHA BRIDGES PA-C Service: ? 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 Coordination Right: Hrjisv-vj-eyfb normal. Rapid alternating movement normal.Left: Jdofcr-bg-eflr normal. Rapid alternating movement normal. Gait Casual gait is normal including stance, stride, and arm swing. Ambulaters with a cane. Able to rise from the chair without usinh her arms. Motor Examination RUE Strength deltoid, biceps, triceps, wrist extensors, wrist extensors, wrist flexor, leveling machine operator strength 5/5. LUE Strength deltoid, biceps, triceps, wrist extensors, wrist extensors, wrist flexor, leveling machine operator strength 5/5. RLE Strength illopsoas, quadriceps, tibialis anterior, and gastrocnemius strength 5/5. LLE Strength illopsoas, quadriceps, tibialis anterior, and gastrocnemius strength 5/5. Tone Normal tone x4 extremities. Reflexes: RUE biceps reflex 2, brachioradialis reflex 2 LUE biceps reflex 2, brachioradialis reflex 2 RLE knee reflex 1 LLE knee reflex 1, Assessment and Plan 1. TIA - presented to [facility] on 07/21/2024 with fatigue and slurred speech. [...] - R55 - Patient was seen at [facility] 03/11/2023 for syncopal episode and slurred speech [...] leak. She isfollowing with sleep specialist at [facility]. Evaluation at [facility] on 07/21/2024: 1. CBC showed mild anemia [...] up in 4 months documented in this encounterNorthwest Medical CenterTxiyluctrx10-77-6090 Telephone encounter Note* Telephone Encounter - Samantha Mcmahan RN - 01/09/2025 9:11 AM EST Pt informed of MM message, once verified, using 2 patient identifiers. Patient denies any questions, needs or concerns at this time. Appointment verified. Samantha Mcmahan RN [facility]02-24-2025 Miscellaneous Notes* Telephone Encounter - Samantha Mcmahan RN - 01/09/2025 9:11 AM EST Pt informed of MM message, once verified, using 2 patient identifiers. Patient denies any questions, needs or concerns at this time. Appointment verified. Samantha Mcmahan RN documented in this encounterUniversity Hospitals Health System02-21-2025 NoteHNO ID: [id number] Author: DAKSHA BRIDGES PA-C Service: ? Author Type: Physician Cab Station Attendant Type: Progress Notes Filed: 01/06/2025 14:38 Note Text: Hematology Progress Note PATIENT NAME: Anh Tejeda [facility] NO.: [id number] ATTENDING PHYSICIAN: Henry Walker MD DATE OF [...] Sodium (mmol/L) Date Value (more content not included)...[facility]02-21-2025 History of Present illness Narrative* Daksha Bridges PA-C - 01/06/2025 2:18 PM EST Hematology Progress Note PATIENT NAME: Anh [facility] NO.: [id number] ATTENDING PHYSICIAN: Henry Walker MD DATE OF [...] Range Status 01/06/2025 5.9 % Final Abs [place] Date Value Ref Range Status 01/06/2025 0.32 [...] which included preparing to see the patient, cfep-rf-nopy patient care, completing clinical documentation, performing a medically appropriate examination, counseling and educating the patient/family/caregiver, ordering medications, tests, or p rocedures, independently interpreting results (not separately reported), communicating results to the patient/family/caregiver, and care coordination (not separately reported). documented in this encounterUniversity Hospitals Health System02-17-2025 Telephone encounter Note * Telephone Encounter - Verenice Andres MA - 01/02/2025 2:52 PM EST Lab orders needed for upcoming appointment scheduled 01/06. Verenice Andres MA [facility]02-17-2025 Miscellaneous Notes* Telephone Encounter - Verenice Andres MA - 01/02/2025 2:52 PM EST Lab orders needed for upcoming appointment scheduled 01/06. Verenice Andres MA documented in this encounterUniversity Hospitals Health System2024 Evaluation note* Diagnosis Onset Date Resolution Status Admit Date Essential (primary) hypertension acutecemb2023 12:57pmInsomniaacuteDecember 2023 12:57pm Obstructive sleep apneaacuteNovember 14, 2024 12:57pmRestless leg syndrome acuteNovember 14, 2024 12:57pmType 2 diabetes mellitus with diabetic chronic kidney diseaseacuteNovember 14, 2024 12:57pm [facility] Work Phone: 1([phone] 781-144312-30-2024 Evaluation note* Diagnosis Onset Date Resolution Status [...] with diabetic chronic kidney diseaseacuteFebruary 2024 2:15pm [facility] Work Phone: 1([phone]) 959-818112-30-2024 Evaluation note* Diagnosis Onset Date Resolution Status [...] through stage 4 chronic kiinactiveFebruary 2024 2:15pm [facility] Work Phone: 1([phone] 407-838611-25-2024 Telephone encounter Note* Telephone Encounter - Samantha Mcmahan RN - 10/10/2024 12:34 PM EST Pt informed of MM message, once verified, using 2 patient identifiers. Patient denies any questions, needs or concerns at this time. Appointment verified. Samantha Mcmahan RN [facility]11-25-2024 Miscellaneous Notes* Telephone Encounter - [...] Bridges PA-C documented in this encounterUniversity Hospitals Health System11-25-2024 Telephone encounter Note * Telephone Encounter - Daksha Bridges PA-C - 10/10/2024 11:45 AM EST Please call with normal iron levels Daksha Bridges PA-C [facility]11-22-2024 History of Present illness Narrative* Daksha Bridges PA-C - 10/07/2024 2:30 PM EST Hematology Progress Note PATIENT NAME: Anh Tejeda [facility] NO.: [id number] ATTENDING PHYSICIAN: Henry Walker MD DATE OF [...] Range Status 10/07/2024 5.4 % Final Abs [place] Date Value Ref Range Status 10/07/2024 0.28 [...] are pending. Repeat labs and follow up dd5rthynf. Chronic kidney disease stage 3b--likely secondary to [...] which included preparing to see the patient, hmch-ix-xjck patient care, completing clinical documentation, performing a medically appropriate examination, counseling and educating the patient/family/caregiver, ordering medications, tests, or p rocedures, independently interpreting results (not separately reported), communicating results to the patient/family/caregiver, and care coordination (not separately reported). documented in this encounterUniversity Hospitals Health System11-22-2024 NoteHNO ID: [id number] Author: DAKSHA BRIDGES PA-C Service: ? Author Type: Physician Cab Station Attendant Type: Progress Notes Filed: 10/07/2024 14:56 Note Text: Hematology Progress Note PATIENT NAME: Anh Tejeda [facility] NO.: [id number] ATTENDING PHYSICIAN: Henry Walker MD DATE OF [...] the visit. CHIEF COMPLAINT: Follow up Diagnosis: NIANA Treatment: Venofer x 3 doses 10/2022, again [...] CO2 (mmol/L) Date Value (more content not included)...[facility]11-20-2024 History of Present illness Narrative* Jenny Watson [...] 10/18/2024 9:35 AM EST documented in this encounterNorthwest Medical CenterYritipopzy24-63-9365 Progress note Author Ottoniel Bland [facility] July 22, 2024 2:19pmNote Date/TimeSept2023 2:18pm[place] [address] Neurology Progress Note Signed Patient: Anh Tejeda MR#: [id number] : 1950 Acct:[id number] Age/Sex: 73 / F Adm Date: 4 Loc: 3T Room: [address] [place] [address] Type: ADM INOo Attending Dr: Comfort Monteiro [...] <Electronically signed by Ottoniel Bland DO> 07/22/24 [facility]9 [facility] Work Phone: 1(805) 758-655309-06-2024 Discharge summary Author Comfort Monteiro [facility] July 22, 2024 1:39pmNote Date/TimeSept2023 1:26pm[place] [address] Discharge Summary Signed Patient: Anh Tejeda MR#: [id number] : 1950 Acct:[id number] Age/Sex: 73 / F Adm Date: 4 Loc: 3T Room: [address] [place] [address]: Comfort Monteiro MD Copies to: [...] Neut % (Auto) 60.0, Lymph % (Auto)31.4, [place] % (Auto) 5.5, Eos % (Auto) 2.7, Baso % (Auto) 0.4, Nucleat RBC Rel Count 0.1, Neut # (Auto) 3.3, Lymph # (Auto) 1.7, [place] # (Auto) 0.3, Eos # (Auto) 0.1, [...] <Electronically signed by Comfort Monteiro MD> 07/22/24 [facility] Work Phone: 1(489) 649-645609-05-2024 Consult note Author Ottoniel Bland [facility] July 21, 2024 4:56pmNote Date/TimeSept2023 3:59pm[place] [address] Neurology Consult Note Signed Patient: Anh Tejeda MR#: [id number] : 1950 Acct:[id number] Age/Sex: 73 / F Adm Date: 4 Loc: Room: [address] [place] [address] Type: ADM INOo Attending Dr: Comfort Monteiro MD Copies to: DO Vinay Mckeon DO Obaydah M Daromar, MD~ HPI Consult Date: 07/21/24 Mechanic Helper: Ottoniel Bland DO [facility] Medical History COVID-19 Acute bronchitis CRESENCIO [...] Riki Garnica M.D.07/21/2024 12:02 PM Dictation [facility] 07/21/24 10:06 IMPRESSION: No acute intracranial pathology. 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 Impression dictated by: Riki Garnica M.D.07/21/2024 10:57 AM Dictation Location: [place] [address] Assessment/Plan (1) Slurred speech: Plan CONSULT REASON: [...] <Electronically signed by Ottoniel Bland DO> 07/21/24 8562 [facility] Work Phone: 1(129) 953-653009-05-2024 History and physical note Author Comfort Monteiro [facility] July 21, 2024 3:26pmNote Date/TimeSept2023 12:40pm[place] [address] Hospitalist H&P Signed Patient: Anh Tejeda MR#: [id number] : 1950 Acct:[id number] Age/Sex: 73 / F Adm Date: 4 Loc: Room: [address] [place] [address] Type: ADM INOo Attending Dr: Comfort Monteiro [...] except as mentioned elsewhere in the documentation [facility] Medical History COVID-19 Acute bronchitis CRESENCIO [...] % (Auto) 24.6 % (.) 07/21/24 10:25 [place] % (Auto) 4.0 % (.) 07/21/24 10:25 Eos % (Auto) 2.5 % (.) 07/21/24 10:25 Baso % (Auto) 0.7 % (.) 07/21/24 10:25 Nucleat RBC Rel Count 0.0 /100 WBC (0-0.5) 07/21/24 10:25 Neut # (Auto) 3.3 x10E3/uL (1.8-7.7) 07/21/24 10:25 Lymph # (Auto) 1.2 x10E3/uL (1.00-4.8) 07/21/24 10:25 [place] # (Auto) 0.2 x10E3/uL (0.0-0.8) 07/21/24 10:25 [...] pH 6.0 (5.0-9.0) 07/21/24 11:48 Ur Specific [place] 1.018 (1.001-1.030) 07/21/24 11:48 Urine Protein Negative [...] -Check MRI brain -PT/OT eval and treat -CONSTRUCTION FRAMER evaluation -Will keep hydralazine, labetalol IV as [...] <Electronically signed by Comfort Monteiro MD> 07/21/[address] [place] [address] Work Phone: 1([phone]) 637-872409-03-2024 Telephone encounter Note* Telephone Encounter - Samantha Mcmahan RN - 07/19/2024 12:48 PM EDT Pt informed of MM message and denies any questions, needs or concerns at this time. Appointment verified. Samantha Mcmahan RN [facility]09-03-2024 Miscellaneous Notes* Telephone Encounter - [...] Bridges PA-C documented in this encounterUniversity Hospitals Health System09-03-2024 Telephone encounter Note * Telephone Encounter - Daksha Bridges PA-C - 07/19/2024 12:36 PM EDT Please inform patient that she does not need iron at this time Daksha Bridges PA-C [facility]08-30-2024 History of Present illness Narrative* Daksha Bridges PA-C - 07/15/2024 2:30 PM EDT Hematology Progress Note PATIENT NAME: Anh Tejeda [facility] NO.: [id number] ATTENDING PHYSICIAN: Henry Walker MD DATE OF [...] Range Status 07/15/2024 5.0 % Final Abs [place] Date Value Ref Range Status 07/15/2024 0.37 [...] which included preparing to see the patient, otau-za-ywcu patient care, completing clinical documentation, performing a medically appropriate examination, counseling and educating the patient/family/caregiver, ordering medications, tests, or p rocedures, independently interpreting results (not separately reported), communicating results to the patient/family/caregiver, and care coordination (not separately reported). documented in this encounterUniversity Hospitals Health System06-05-2024 Telephone encounter Note * Telephone Encounter - Samantha Mcmahan RN - 04/20/2024 1:48 PM EDT Pt aware and denies any questions, needs or concerns at this time. Samantha Mcmahan RN [facility]06-05-2024 Miscellaneous Notes* Telephone Encounter - [...] Mcmahan RN documented in this encounterUniversity Hospitals Health System06-05-2024 Telephone encounter Note * Telephone Encounter - Daksha Bridges PA-C - 04/20/2024 1:20 PM EDT Iron levels look good Daksha Bridges PA-C [facility]06-05-2024 Telephone encounter Note* Telephone Encounter - Samantha Mcmahan RN - 04/20/2024 11:58 AM EDT Pt called to request Iron lab results. MM: please verify no needs at this time Samantha Mcmahan RN [facility]05-31-2024 Instructions* Patient Instructions* Shana Flores APRN.CNP - 04/15/2024 2:27 PM EDT Please call the office with questions or concerns. Report symptoms of worsening iron-deficiency anemia like short of breath, headaches, ice cravings, worsening fatigue, dizziness, or light-headedness. documented in this encounterUniversity Hospitals Health System05-31-2024 History of Present illness Narrative* Shana Flores APRN.CNP - 04/15/2024 2:09 PM EDT Hematology Progress Note PATIENT NAME: Anh Tejeda [facility] NO.: [id number] ATTENDING PHYSICIAN: Henry Walker MD DATE OF [...] mg was 02/11/24. Will be seeing a wood experimental mechanic in the next couple of weeks for [...] Range Status 04/15/2024 4.7 % Final Abs [place] Date Value Ref Range Status 04/15/2024 0.31 [...] SPEP/MPA. Shana Flores APRN.JENY Hematology/Oncology [place]/ [facility] [phone] CC: Nisa Shepherd CNP documented in this encounterUniversity Hospitals Health System03-25-2024 History of Present illness Narrative* Renetta Jhonson LSW - 02/08/2024 11:41 AM EDT Patient appears on the [facility] First Time Treatment List for a non-oncology treatment. No psychosocial assessment is indicated. ALIA Bean documented in this encounterUniversity Hospitals Health System03-18-2024 Miscellaneous Notes* Telephone Encounter - [...] would like. documented in this encounterUniversity Hospitals Health System03-15-2024 Miscellaneous Notes* Telephone Encounter - Samantha Mcmahan RN - 01/29/2024 1:15 PM EDT Pt called to inform MM her blood sugar is down to 198. Instructed to keep a record and notify PCPChristopheray for an appt to manage. She is agreeable and will call. Samantha Mcmahan RN documented in this encounterUniversity Hospitals Health System03-15-2024 History of Present illness Narrative* Daksha Bridges PA-C - 01/29/2024 10:30 AM EDT PATIENT NAME: Anh [facility] NO.: [id number] ATTENDING PHYSICIAN: Henry Walker MD DATE OF [...] to sleep. Going on a trip to [place] for week. Current Outpatient Medications Medication Sig [...] Range Status 01/29/2024 3.5 % Final Abs [place] Date Value Ref Range Status 01/29/2024 0.21 [...] which included preparing to see the patient, eypu-pz-dupa patient care, completing clinical documentation, obtaining and/or reviewing separately obtained history, performing a medically appropriate examination, counseling and educating the pat ient/family/caregiver, ordering medications, tests, or procedures, and communicating results to thepatient/family/caregiver. documented in this encounterUniversity Hospitals Health System01-22-2024 Hospital Discharge instructions Patient Education [...] spleen. Follow these instructions at home: Take hvyh-chd-kddatli and prescription medicines only as told by [...] provider. Document Revised: 01/26/2023 Document Reviewed: 01/26/2023 [employer] Patient Education 2022 POPRAGEOUS. Follow Up Care 11/12/2023 09:08:30 With:Nisa Shepherd CNP Address: When:3 months [facility] [phone] Miscellaneous Notes* Telephone Encounter - Samantha Mcmahan [...] iron levels documented in this encounterUniversity Hospitals Health System12-05-2023 Evaluation note* Encounter Date Diagnosis [...] fit. A prescription was sent to the [facility] for new supplies throughout the year. She [...] have anemia, she is currently seeing a scientific recruiter and has needed some blood transfusion. They are currently managing this and she may need to see a wood experimental mechanic for kidney issues. Discussed c pt that [...] in a timely fashion. Do not smoke [employer] Other 09-11-2023 Miscellaneous Notes* Telephone Encounter - [...] iron studies documented in this encounterUniversity Hospitals Health System09-08-2023 Miscellaneous Notes* Telephone Encounter - [...] Bridges PA-C documented in this encounterUniversity Hospitals Health System09-08-2023 Nurse Note* Beverly Reza MA - 07/24/2023 2:01 PM EDT Patient states that she has been very tired but her neuropathy have been bothering her. Beverly Marcus MA documented in this encounterUniversity Hospitals Health System09-08-2023 History of Present illness Narrative* Daksha Bridges PA-C - 07/24/2023 2:00 PM EDT PATIENT NAME: Anh [facility] NO.: [id number] ATTENDING PHYSICIAN: Henry Walker MD DATE OF [...] Range Status 07/24/2023 5.9 % Final Abs [place] Date Value Ref Range Status 07/24/2023 0.39 [...] Shepherd CNP documented in this encounterUniversity Hospitals Health System06-19-2023 Miscellaneous Notes* Telephone Encounter - Karlie Vallejo RN - 05/04/2023 10:04 AM EDT Patient notified and verbalized understanding. No further questions. Karlie Vallejo RN * Telephone Encounter - Karlie Valljeo RN - 05/04/2023 10:03 AM EDT ----- Message from Daksha Bridges PA-C sent at 05/04/2023 7:40 AM EDT ----- Please call and inform the patient that her iron levels are good and she does not need iron. documented in this encounterUniversity Hospitals Health System06-16-2023 History of Present illness Narrative* Daksha Bridges PA-C - 05/01/2023 2:00 PM EDT PATIENT NAME: Anh [facility] NO.: [id number] ATTENDING PHYSICIAN: Henry Walker MD DATE OF [...] last visit she did have admission to [facility] in February 2023for syncope and UTI. She [...] a colonoscopy a few weeks ago at [facility]. I do not have any of these [...] Range Status 05/01/2023 6.0 % Final Abs [place] Date Value Ref Range Status 05/01/2023 0.44 [...] in 3 months. Will request records from [facility] colonoscopy as well. Chronic kidney disease stage 3b--likely secondary to diabetes. Referral to nephrology recommended and she wishes to discuss to PCP Daksha Bridges PA-C CC: Nisa Shepherd CNP documented in this encounterUniversity Hospitals Health System04-27-2023 Consult note Author Krissy Easton [facility] March 12, 2023 5:33pmNote Date/TimeApril 2022 11:16[place] [address] Neurology Consult Note Signed Patient: Anh Tejeda MR#: [id number] : 1950 Acct:[id number] Age/Sex: 72 / F Adm Date: 3 Loc: Room: [address] [place] [address] Type: ADM IN Attending Dr: Kimberly Arteaga MD Copies to: DO Queat Rubio ANP-C Mazhar Rahman, MD Nicole J Danner,~ HPI Consult Date: 03/12/23 Mechanic Helper: ISAMAR Amato with Dr. Easton Reason for [...] and ulnar nerve compression CEREBELLAR EXAM: * Zgezqp-iy-mntm and alternating movements are intact and normal in bilateral upper extremities * Yzpx-rg-eiju and alternating movements are intact and normal in lower extremities. She has difficulty with otuw-gj-wydl using the right lower extremity due to [...] of dysmetria with good rapid alternating movements xkfkdn-qt-vwee Tone is physiologic Deep tendon reflexes are [...] care and confirmed this with the Fellow/Nurse Practitioner/Resident/Pit Hand/Physician Cab Station Attendant as noted below. 72 year old female [...] <Electronically signed by DENISE Prieto> 03/12/23 1156 [facility] Work Phone: 1(798) 251-706704-27-2023 Progress note Author Kimberly Arteaga [facility] March 12, 2023 4:35pmNote Date/TimeApril 2022 4:32[place] [address] Hospitalist Progress Note Signed Patient: Anh Tejeda MR#: [id number] : 1950 Acct:[id number] Age/Sex: 72 / F Adm Date: 3 Loc: Room: [address] [place] [address] Type: ADM IN Attending Dr: Kimberly Arteaga [...] signed by Kimberly Arteaga MD> 03/12/23 1635 [facility] Work Phone: 1(409) 955-911504-26-2023 History and physical note Author Kimberly Arteaga [facility] March 11, 2023 7:01pmNote Date/TimeApril 2022 6:46[place] [address] Hospitalist H&P Signed with Addenda Patient: Anh Tejeda MR#: [id number] : 1950 Acct:[id number] Age/Sex: 72 / F Adm Date: 3 Loc: Room: [address] [place] [address] Type: ADM IN Attending Dr: Kimberly Arteaga [...] unless noted below or in HPI [facility] Vaccinated for COVID-19?: Yes Medical History (Updated [...] % (Auto) 24.2 % (.) 03/11/23 15:41 [place] % (Auto) 6.1 % (.) 03/11/23 15:41 Eos % (Auto) 1.4 % (.) 03/11/23 15:41 Baso % (Auto) 0.4 % (.) 03/11/23 15:41 Nucleat RBC Rel Count 0.1 /100 WBC (0-0.5) 03/11/23 15:41 Neut # (Auto) 3.9 x10E3/uL (1.8-7.7) 03/11/23 15:41 Lymph # (Auto) 1.4 x10E3/uL (1.00-4.8) 03/11/23 15:41 [place] # (Auto) 0.3 x10E3/uL (0.0-0.8) 03/11/23 15:41 [...] pH 5.0 (5.0-9.0) 03/11/23 16:48 Ur Specific [place] 1.020 (1.001-1.030) 03/11/23 16:48 Urine Protein Negative [...] stroke. Documented By: Kimberly Arteaga MD 03/11/23 0917 Signed By: <Electronically signed by Kimberly Arteaga MD> 03/11/23 1856 [facility] Work Phone: [phone] 696-691503-27-2023 Miscellaneous Notes* Telephone Encounter - Sonia Rg [...] iron labs documented in this encounterUniversity Hospitals Health System03-24-2023 History of Present illness Narrative* Daksha Bridges PA-C - 02/06/2023 2:30 PM EDT PATIENT NAME: Anh [facility] NO.: [id number] ATTENDING PHYSICIAN: Henry Walker MD DATE OF [...] Range Status 02/06/2023 5.7 % Final Abs [place] Date Value Ref Range Status 02/06/2023 0.37 [...] Shepherd CNP documented in this encounterUniversity Hospitals Health System02-08-2023 Hospital Discharge instructions Patient Education [...] powder, vinegar, hot sauces, and barbecue sauce. ?Pelican fruit juices and citrus fruits, such as oranges, myron, and limes. ?Tomato-based foods, such as red sauce, chili, salsa, and pizza with red sauce. ?Fried and fatty foods, such as donuts, occitan fries, potato chips, and high-fat dressings. ?High-fat [...] to any changes in your symptoms. Take nfoy-mpd-kpfrkpi and prescription medicines only as told by [...] you have new or worsening symptoms. Take ycod-oon-njtjrgn and prescription medicines only as told by [...] 08/12/2006 Document Revised: 05/11/2019 Document Reviewed: 05/11/2019 [employer] Patient Education 2020 POPRAGEOUS. 12/24/2022 10:15:21 Gastroesophageal Reflux Disease, Adult Gastroesophageal [...] powder, vinegar, hot sauces, and barbecue sauce. ?Pelican fruit juices and citrus fruits, such as oranges, myron, and limes. ?Tomato-based foods, such as red sauce, chili, salsa, and pizza with red sauce. ?Fried and fatty foods, such as donuts, occitan fries, potato chips, and high-fat dressings. ?High-fat [...] to any changes in your symptoms. Take lpag-zhs-vrcynpy and prescription medicines only as told by [...] you have new or worsening symptoms. Take ecqf-aqa-ccrmunv and prescription medicines only as told by [...] 08/12/2006 Document Revised: 05/11/2019 Document Reviewed: 05/11/2019 [employer] Patient Education 2020 POPRAGEOUS. Follow Up Care 09/19/2022 13:04:08 With:Nisa Shepherd CNP Address: When:3 months [facility] 01-30-2023 Miscellaneous Notes* Telephone [...] as scheduled documented in this encounterUniversity Hospitals Health System01-27-2023 History of Present illness Narrative* Daksha Bridges PA-C - 12/12/2022 3:00 PM EST PATIENT NAME: Anh [facility] NO.: [id number] ATTENDING PHYSICIAN: Henry Walker MD DATE OF [...] 12/12/2022 1.24 1.00 - 4.00 k/uL Final [place]% Date Value Ref Range Status 12/12/2022 5.0 % Final Abs [place] Date Value Ref Range Status 12/12/2022 0.28 [...] Shepherd CNP documented in this encounterUniversity Hospitals Health System12-07-2022 History of Present illness Narrative* MAGUE Bean - 10/22/2022 9:46 AM EST Patient appears on the [facility] First Time Treatment List for a non-oncology treatment. No psychosocial assessment is indicated. ALIA Bean documented in this encounterUniversity Hospitals Health System12-01-2022 History of Present illness Narrative* Daksha Bridges PA-C - 10/16/2022 10:30 AM EST PATIENT NAME: Anh Nikhil [facility] NO.: [id number] ATTENDING PHYSICIAN: Henry Walker MD DATE OF [...] 10/01/2022 1.07 1.00 - 4.00 k/uL Final [place]% Date Value Ref Range Status 10/01/2022 4.6 % Final Abs [place] Date Value Ref Range Status 10/01/2022 0.25 [...] Shepherd CNP documented in this encounterUniversity Hospitals Health System11-30-2022 Miscellaneous Notes* Telephone Encounter - Haley Milligan - 10/15/2022 10:08 AM EST Patient on 1st time treatment report-non oncology regimen (venofer) Patient holds medicare coverageand no FA available for this treatment. documented in this encounterUniversity Hospitals Health System11-29-2022 Evaluation note* Encounter Date Diagnosis Assessment Notes Treatment Notes Treatment Clinical Notes Sep, Obstructive sleep apnea (ICD-10 - G47.33) Fortunately, the patient is using and benefiting from treatment. Download was reviewed with patient, Current pressure is controlling apnea well, And we will make no changes at this time. A prescription was sent to the [employer] for new supplies throughout the year. She [...] in a timely fashion. Do not smoke [employer] Other 11-25-2022 History of Present illness Narrative* MAGUE Bean - 10/10/2022 9:09 AM EST Patient appears on the First Time Treatment List for a non-oncology treatment. No psychosocial assessment is indicated. Renetta Alex, HATCHERY HELPER-S documented in this encounterUniversity Hospitals Health System11-21-2022 Miscellaneous Notes* Telephone Encounter - [...] for it documented in this encounterUniversity Hospitals Health System11-16-2022 History of Present illness Narrative* Henry Walker MD - 10/01/2022 11:47 AM EST PATIENT NAME: [facility]h [facility] NO.: [id number] ATTENDING PHYSICIAN: Henry Walker MD DATE OF [...] Henry Walker M.D. Hematology/Medical Oncology [facility] [phone] CC: Nisa Shepherd, RICE FIELD WORKER documented in this encounterUniversity Hospitals Health System10-18-2022 Evaluation + Plan note Future Scheduled Tests Laboratory* B-Type Natriuretic Peptide 09/02/22 * TIBC Calculated 04/23/22 * Ferritin 04/23/22 * Folate Level 04/23/22 * Hepatic Function Panel 04/23/22 * Iron Level 04/23/22 * Magnesium Level 02/04/23 * Reticulocyte Count 04/23/22 * Vitamin B12 Level 04/23/22 [facility] Hospital Discharge instructions Patient Education 06/12/2022 09:13:55 [...] unsweetened, w/added ascorbic acid 1 cup 0.5 [place] 1 cup 0.7 Vegetables Cooked Green beans 1 cup 4.0 Carrots 1/2 cup sliced 2.3 Peas 1 cup 8.8 Potato (baked, with skin) 1 medium potato 3.8 Raw [place] (with peel) 1 cucumber 1.5 Lettuce 1 [...] 8.7 Peanuts 1/2 cup 7.9 [facility]. SEEK IMMEDIATE MEDICAL CARE IF: You [...] Information adapted from: [facility] Patient Information 2009 [employer]. Boxed 2012 [email or web address]-ipvovwc-bkcyak-the-basics 06/12/2022 09:13:55 Colon Polyps Colon Polyps Polyps [...] 07/29/2005 Document Revised: 02/17/2019 Document Reviewed: 02/17/2019 [employer] Patient Education 2020 POPRAGEOUS. 06/12/2022 09:13:55 Colonoscopy, Care After Surgery [facility] (CUSTOM) Colonoscopy Care After Surgery Please read the instructions outlined below and refer to this sheet in the next few weeks. These discharge instructions provide you with general information on [facility] Your doctor may also give you [...] day. 06/12/2022 09:13:55 Endoscopy, Care After Procedure [facility] (CUSTOM) Endoscopy Care After Procedure Please read the instructions outlined below and refer to this sheet in the next few weeks. These discharge instructions provide you with general information on [facility] Your doctor may also give [...] blood. Document Released: 06/16/2005 Document Re-Released: 04/26/2007 [facility] Patient Information 2009 [employer]. Follow Up Care 04/23/2022 14:07:59 With:Jason RUSSELL Address: [address] [place] [address]. [address] [place] [address] Business (1) When:1 to 2 weeks Comments:Call for any problems. [facility] SystemChief [facility]+Reason for visit Narrative* Chief Complaint See order RENAL CKD PROGRESSIONReason for VisitAnemia of renal disease Chronic kidney disease, stage III (moderate) Hyperlipidemia [id number] Secondary hyperparathyroidism Type 2 diabetes mellitus with diabetic chronic kidney disease [facility] Work Phone: Chief complaint+Reason for visit Narrative* Chief Complaint RENAL CKD PROGRESSIO N N18.30 E78.5 N25.81 N18.9 D63.1 I12.9 E11.22 N18.3Reason for VisitAnemia of renal disease Chronic kidney disease, stage III (moderate) Hyperlipidemia [id number] Secondary hyperparathyroidism Type 2 diabetes mellitus with diabetic chronic kidney disease [facility] Work Phone: Chief complaint+Reason for visit Narrative* Chief Complaint RENAL CKD PROGRESSIO N N18.30 E78.5 N25.81 N18.9 D63.1 I12.9 E11.22 N18.3 RENAL 6 Week F/UReason for VisitAnemia of renal disease Chronic kidney disease, stage III (moderate) Hyperlipidemia [id number] Secondary hyperparathyroidism Type 2 diabetes mellitus with diabetic chronic kidney disease Anemia of renal disease Chronic kidney disease, stage III (moderate) Hyperlipidemia [id number] Hypomagnesemia Secondary hyperparathyroidism Type 2 diabetes mellitus with diabetic chronic kidney disease [facility] Work Phone: Chika complaint+Reason for visit Narrative* Chief Complaint RENAL CKD PROGRESSIO N N18.30 E78.5 N25.81 N18.9 D63.1 I12.9 E11.22 N18.3 RENAL 6 Week F/U heart palpatationsReason for VisitAnemia of renal disease Chronic kidney disease, stage III (moderate) Hyperlipidemia [id number] Secondary hyperparathyroidism Type 2 diabetes mellitus with diabetic chronic kidney disease Anemia of renal disease Chronic kidney disease, stage III (moderate) Hyperlipidemia [id number] Hypomagnesemia Secondary hyperparathyroidism Type 2 diabetes mellitus with diabetic chronic kidney disease Heart palpitations [id number] Hypertensive urgency Slurred speech Type 2 diabetes mellitus with diabetic chronic kidney disease [facility] Work Phone: Discharge summary Author Kimberly Arteaga [facility] March 13, 2023 1:09pmNote Date/TimeApril 2022 1:[address]pm[address] [address] Discharge Summary Signed Patient: Anh Tejeda MR#: [id number] : 1950 Acct:[id number] Age/Sex: 72 / F Adm Date: 3 Loc: Room: [address] [place] [address]: Kimberly Arteaga MD Copies to: [...] % (Auto) 62.5, Lymph % (Auto) 28.5, [place] % (Auto) 6.9, Eos % (Auto) 1.7, Baso % (Auto) 0.4, Nucleat RBC Rel Count 0.1, Neut # (Auto)3.1, Lymph # (Auto) 1.4, [place] # (Auto) 0.3, Eos # (Auto) 0.1, [...] signed by Kimberly Arteaga MD> 03/13/23 1309 [facility] Work Phone: Evaluation + Plan note Future Appointments Appointment Date:06/12/2022 08:45:00 AM Scheduled Provider: Location:[facility] Appointment Type:Surgery FT Appointment Date:08/18/2022 11:45:00 AM Scheduled Provider:Jose Carlos Mattson MD [facility] Type:Cardiology Follow Up (FT) Future Scheduled Tests Laboratory* TIBC Calculated 04/23/22 * Ferritin 04/23/22 * Folate Level 04/23/22 * Hepatic Function Panel 04/23/22 * Iron Level 04/23/22 * Reticulocyte Count 04/23/22 * Vitamin B12 Level 04/23/22 [facility] Evaluation + Plan note Future Appointments Appointment Date:08/18/2022 11:45:00 AM Scheduled Provider:Jose Carlos Mattson MD [facility] Type:Cardiology Follow Up (FT) Future Scheduled Tests Laboratory* TIBC Calculated 04/23/22 * Ferritin 04/23/22 * Folate Level 04/23/22 * Hepatic Function Panel 04/23/22 * Iron Level 04/23/22 * Reticulocyte Count 04/23/22 * Vitamin B12 Level 04/23/22 [facility] Future Appointments Appointment Date:09/19/2022 12:20:00 PM Scheduled Provider:Nisa Shepherd CNP Location:[facility] Digestive [facility] Appointment Type:[facility] Follow Up Future Scheduled Tests Laboratory* B-Type Natriuretic Peptide 09/02/22 * TIBC Calculated 04/23/22 * Ferritin 04/23/22 * Folate Level 04/23/22 * Hepatic Function Panel 04/23/22 * Iron Level 04/23/22 * Reticulocyte Count 04/23/22 * Vitamin B12 Level 04/23/22 [facility] Future Appointments Appointment Date:12/24/2022 10:20:00 AM Scheduled Provider:Nisa Shepherd CNP Location:[facility] Appointment Type:BAD Follow Up Future Scheduled Tests Laboratory* B-Type Natriuretic Peptide 09/02/22 * TIBC Calculated 04/23/22 * Ferritin 04/23/22 * Folate Level 04/23/22 * Hepatic Function Panel 04/23/22 * Iron Level 04/23/22 * Reticulocyte Count 04/23/22 * Vitamin B12 Level 04/23/22 [facility] Future Appointments Appointment Date:02/03/2023 10:00:00 AM Scheduled Provider: [facility] Type:US Abdominal/Pelvis () Appointment Date:03/23/2023 09:20:00 AM Scheduled Provider:Nisa Shepherd CNP Location:[facility] Digestive [facility] Appointment Type:[facility] Follow Up Future Scheduled [...] NM Gastric Emptying Study 12/24/22 [facility] Evaluation + Plan note Future Appointments Appointment Date:02/03/2023 10:00:00 AM Scheduled Provider: [facility] Appoint[facility] Type:US Abdominal/Pelvis () Appointment Date:03/23/2023 09:20:00 AM Scheduled Provider:Nisa Shepherd CNP Location:[facility] Appointment Type:[facility] Follow Up Future Scheduled [...] B12 Level 12/24/22 Radiology* US Liver 02/03/23 [facility] Future Appointments Appointment Date:04/22/2023 10:00:00 AM Scheduled Provider: Location:[facility] Surgical Services Appointment Type:Surgery FT Future Scheduled Tests Laboratory* B-Type Natriuretic Peptide 09/02/22 * TIBC Calculated 04/23/22 * Ferritin 04/23/22 * Folate Level 04/23/22 * Hepatic Function Panel 04/23/22 * Iron Level 04/23/22 * Magnesium Level 02/04/23 * Reticulocyte Count 04/23/22 * Vitamin B12 Level 04/23/22 [facility] Evaluation + Plan note Future Appointments Appointment Date:01/28/2024 09:00:00 AM Scheduled Provider: Location:.[facility] Appointment Type:US Abdominal/Pelvis (FT) Appointment Date:02/29/2024 09:20:00 AM Scheduled Provider:Nisa Shepherd CNP Location:[facility] Appointment Type:[facility] Follow Up Future Scheduled Tests Laboratory* HCV RNA by PCR, Qn Rfx Arlet 12/08/23 * Ptict-6-Aulbwhgskpl 12/08/23 * Ceruloplasmin 12/08/23 * Antimitochondrial Antibody, [...] 12/08/23 Radiology* US Liver 01/28/24 [facility] Evaluation + Plan note Future Appointments Appointment Date:02/29/2024 09:20:00 AM Scheduled Provider:Nisa Shepherd CNP Location:[facility] Appointment Type:[facility] Follow Up Diagnostic Tests Pending * Solct-9-Haoncmkbjxy 01/28/24 * MAXX w/Reflex if POS 01/28/24 [...] Future Scheduled Tests Laboratory* Magnesium Level 02/04/23 [facility] Future Appointments Appointment Date:02/29/2024 09:20:00 AM Scheduled Provider:Nisa Shepherd CNP Location:[facility] Appointment Type:[facility] Follow Up Future Scheduled Tests Laboratory* Magnesium Level 02/04/23 [facility] Future Appointments Appointment Date:09/29/2024 09:45:00 AM Scheduled Provider:Verónica Ugarte MD Location:[facility] Appointment Type:[facility] Follow Up [facility] Evaluation + Plan note Future Appointments Appointment Date:03/30/2025 09:30:00 AM Scheduled Provider:Verónica Ugarte MD Location:[facility] Appointment Type:[facility] Follow Up [facility] Evaluation + Plan note Future Appointments Appointment Date:03/30/2025 09:30:00 AM Scheduled Provider:Verónica Ugarte MD Location:[facility] Appointment Type:[facility] Follow Up Diagnostic Tests Pending * Alpha Fetoprotein Tumor Marker 03/27/25 [facility] Evaluation + Plan note Future Appointments Appointment Date:01/10/2026 10:45:00 AM Scheduled Provider:Verónica Ugarte MD Location:[facility] Appointment Type:[facility] Follow Up Future Scheduled Tests Laboratory* Comprehensive Metabolic Panel 01/11/26 [facility] evaluation noteNo assessment information available [facility] Work Phone: evaluation note* Diagnosis Anemia, unspecified type- Primary [facility] Diagnosis Iron deficiency anemia due to chronic blood loss Iron deficiency anemia secondary to blood loss (chronic) [facility] Diagnosis Anemia, unspecified type- Primary Iron deficiency anemia secondary to inadequate dietary iron intake [facility] Diagnosis Iron deficiency anemia due to chronic blood loss- Primary Iron deficiency anemia secondary to blood loss (chronic) [facility] Diagnosis Iron deficiency anemia due to chronic blood loss- Primary Iron deficiency anemia secondary to blood loss (chronic) [facility]* Diagnosis Iron deficiency anemia due to chronic blood loss- Primary Iron deficiency anemia secondary to blood loss (chronic) [facility] Diagnosis Iron deficiency anemia secondary to inadequate dietary iron intake- Primary [facility] Diagnosis Iron deficiency anemia secondary to inadequate dietary iron intake- Primary [facility]* Diagnosis Onset Date Resolution Status Acute UTI acuteChronic kidney disease, stage III (moderate)acuteDiabetesacuteHypertensive urgencyacuteParesthesias in right handacuteSlurred speechacuteSyncopeacute [facility] Work Phone: evaluation note* Diagnosis Iron deficiency anemia secondary to inadequate dietary iron intake- Primary Stage 3b chronic kidney disease (HCC) [facility]* Diagnosis Iron deficiency anemia secondary to inadequate dietary iron intake- Primary Stage 3b chronic kidney disease (HCC) [facility]* Diagnosis Stage 3b chronic kidney disease (HCC)- Primary Iron deficiency anemia secondary to inadequate dietary iron intake [facility] Diagnosis Iron deficiency anemia due to chronic blood loss- Primary Iron deficiency anemia secondary to blood loss (chronic) [facility]* Diagnosis Iron deficiency anemia due to chronic blood loss- Primary Iron deficiency anemia secondary to blood loss (chronic) [facility]* Diagnosis Iron deficiency anemia, unspecified iron deficiency anemia type- Primary Anemia of chronic renal failure, unspecified CKD stage Thrombocytopenia (HCC) Thrombocytopenia, unspecified documented [facility] this encounter [facility]* Diagnosis Onset Date Resolution Status Anemia of renal disease acuteChronic kidney disease, stage III (moderate)acuteHyperlipidemiaacute [id number] hyperparathyroidismacuteType 2 diabetes mellitus with diabetic chronic kidney diseaseacute [facility] Work Phone: Evaluation note* Diagnosis Onset Date Resolution Status Anemia of renal disease acuteChronic kidney disease, stage III (moderate)acuteHyperlipidemiaacute [id number] hyperparathyroidismacuteType 2 diabetes mellitus with diabetic chronic kidney diseaseacuteAnemia of renal diseaseacuteChronic kidney disease, stage III (moderate)wutnyJpxvnjycfxhxaaehdjqAGZ-[id number] acuteHypomagnesemiaacuteSecondary hyperparathyroidismacuteType 2 diabetes mellitus with diabetic chronic kidney diseaseacute [facility] Work Phone: Evaluation note* Diagnosis Iron deficiency anemia, unspecified iron deficiency anemia type- Primary Anemia of chronic renal failure, unspecified CKD stage documented in this encounter [facility]* Diagnosis Onset Date Resolution Status Anemia of renal disease acuteChronic kidney disease, stage III (moderate)acuteHyperlipidemiaacute [id number] hyperparathyroidismacuteType 2 diabetes mellitus with diabetic chronic kidney diseaseacuteAnemia of renal diseaseacuteChronic kidney disease, stage III (moderate)rrqxvVqfmlajfewwwukmpsghYUI-NEBZ-[id number] acuteHypomagnesemiaacuteSecondary hyperparathyroidismacuteType 2 diabetes mellitus with diabetic chronic kidney diseaseacuteHeart palpitationsacute DEI-[id number] urgencyacuteSlurred speechacuteType 2 diabetes mellitus with diabetic chronic kidney diseaseacute [facility] Work Phone: Evaluation note* Diagnosis Transient ischemic attack- Primary Unspecified transient cerebral ischemia Palpitations Polyneuropathy Unspecified hereditary and idiopathic peripheral neuropathy documented [facility]* Diagnosis Onset Date Resolution Status Anemia of renal disease acuteChronic kidney disease, stage III (moderate)acuteHyperlipidemiaacute HypomagnesemiaacuteSecondary hyperparathyroidismacuteHeart palpitationsresolved Slurred speechresolved [facility] Work Phone: Evaluation note* Diagnosis Iron deficiency anemia, unspecified iron deficiency anemia type- Primary Thrombocytopenia (HCC) Thrombocytopenia, unspecified Stage 3b chronic kidney disease (HCC) [facility] Diagnosis Hearing loss, mixed, bilateral- Primary Mixed hearing loss, bilateral documented in this encounter [facility]* Diagnosis Iron deficiency anemia, unspecified iron deficiency anemia type- Primary [facility]* Diagnosis Transient ischemic attack- Primary Unspecified transient cerebral ischemia Polyneuropathy Unspecified hereditary and idiopathic peripheral neuropathy Carpal tunnel syndrome, bilateral upper limbs [facility] Iron deficiency anemia, unspecified iron deficiency anemia type- Primary Thrombocytopenia (HCC) Thrombocytopenia, unspecified Stage 3b chronic kidney disease (HCC) [facility]* Diagnosis Transient ischemic attack- Primary Unspecified transient cerebral ischemia Polyneuropathy Unspecified hereditary and idiopathic peripheral neuropathy Syncope and collapse Carpal tunnel syndrome, bilateral upper limbs [facility] Anemia, unspecified type- Primary Iron deficiency anemia, unspecified iron deficiency anemia type Stage 3b chronic kidney disease (HCC) Anemia in stage 3a chronic kidney disease (HCC) [facility]* Diagnosis Anemia, unspecified type- Primary [facility]* Diagnosis Onset Date Resolution Status Admit Date Anemia of renal disease acuteAugust 2024 9:42amChronic kidney disease, stage III (moderate)acute July 05, 2025 9:42amHyperlipidemiaacuteAugust 2024 9:42am HypomagnesemiaacuteAugust 2024 9:42amSecondary hyperparathyroidismacute July 05, 2025 9:42amType 2 diabetes mellitus with diabetic chronic kidney diseaseacuteAugus2024 9:42amHypertensive chronic kidney disease with stage 1 through stage 4 chronic kiinactiveAugust 2024 9:42am [facility] Work Phone: History general Narrative - Reported* Type Description Date Medical History Gastroesophageal ref lux disease, esophagitis presence not specified Medical HistoryRLS (restless legs syndrome)Medical HistoryBenign essential HTN Medical HistoryHypercholesterolemiaMedical HistoryType 2 diabetes mellitus without complication, without long-term current use of insulinMedical HistoryOSA (obstructive sleep apnea)Surgical HistoryhysterectomySurgical History cholecystectomySurgical Historyknee arthroscopy [employer] [facility] Other Hospital course Narrative No data available for this section [facility] Discharge instructions No data available for this section [facility] Discharge instructions Additional Instructions Check blood glucose before meals and [facility] Work Phone: Progress note No data available for this section [facility])No reason for referral information [facility] Work Phone: Advance Directives No Advanced [...] for Visit Admit Date Essential (primary) hypertension [facility] r 2023 12:57pm Insomnia November 14, [...] for Visit Admit Date Essential (primary) hypertension [facility] r 2023 12:57pm Insomnia November 14, [...] for Visit Admit Date Essential (primary) hypertension [facility] 2023 12:57pm Insomnia November 14, 2024 [...] a 30 minute post dose observation. New Bag/Syringe/Unhcmo4710/16/2022 10:55 AM [id number] mg166.67 mL/hrMedication Order MAR ActionAction DateDoseRateSite iron sucrose 300 mg in NaCl 0.9% 250 mL (VENOFER) 300 mg, INTRAVENOUS, at 166.67 mL/hr, Administer over 90 Minutes, ONCE, 1 dose, On [facility] 10/23/22 at 1400, Please conduct a 30 minute post dose observation. New Bag/Syringe/Ppymzw3210/23/2022 1:45 PM [id number] mg166.67 mL/hrMedication Order MAR ActionAction DateDoseRateSite iron sucrose 300 mg in NaCl 0.9% 250 mL (VENOFER) 300 mg, INTRAVENOUS, at 166.67 mL/hr, Administer over 90 Minutes, ONCE, 1 dose, On [facility] 10/30/22 at 1330, Please conduct a 30 minute post dose observation. New Bag/Syringe/Dxqgce2510/30/2022 1:32 PM [id number] mg166.67 mL/hr Family History No Family History [...] Palpitations Procedures Cardiac event monitor Queta Prieto, ORTHOPEDIC BRACE MAKER [address] [place] [address] Referral IDStatusReasonStart DateExpiration DateVisits RequestedVisits [id number] Additional Source Comments Care Team (unrecognized sect [...] Start DateEnd Date Nisa Shepherd, JENY [address] [place] [address] PCP - GeneralFami Lqfylgyp92/7/22Team MemberRelationshipSpecialtyStart DateEnd Date Nisa Shepherd, RICE FIELD WORKER [address] [place] [address] PCP - [facility] Odvsqayj03/7/22Team MemberRelationshipSpecialtyStart DateEnd Date Nisa Shepherd, RICE FIELD WORKER [address] [place] [address] PCP - [facility]09/22/22Team MemberRelationshipSpecialtyStart DateEnd Date Nisa Shepherd, RICE FIELD WORKER [address] [place] [address] PCP - [facility]09/22/22 Team Status: Inactive Member Role Status Dates Vinay Matta , DO Primary Care Provider Active Anh Delcid NPAttending ProviderActiveTeam MemberRelationshipSpecialtyStart DateEnd Date Nisa Shepherd, RICE FIELD WORKER [address] [facility] [place] [address] PCP - [facility] Lgrkpoew29/7/22Team MemberRelationshipSpecialtyStart DateEnd Date Nisa Shepherd, RICE FIELD WORKER [address] [facility] [address] PCP - [facility] Emyvvnkv00/7/22Team MemberRelationshipSpecialtyStart DateEnd Date Nisa Shepherd, RICE FIELD WORKER [address] [place] [address] [facility] - [facility] Npamgwih00/7/22Team MemberRelationshipSpecialtyStart DateEnd Date Nisa Shepherd, RICE FIELD WORKER [address] [place] [address] PCP - [facility]09/22/22Team MemberRelationshipSpecialtyStart DateEnd Date Nisa Shepherd, JENY [address] [place] [address] PCP - [facility]09/22/22Team MemberRelationshipSpecialtyStart DateEnd Date Nisa Shepherd CNP [address] [place] [address] PCP - [facility]09/22/22 Team Status: Inactive Member Role Status Dates Vinay Matta , DO Primary Care Provider Active Alla Osborn ProviderActiveTeam MemberRelationshipSpecialtyStart DateEnd Date Nisa Shepherd CNP [address] [place] [address] PCP - [facility]09/22/22 Team Status: Inactive Member Role Status Dates [...] SpecialtyStart DateEnd Date Nisa Shepherd CNP [address] [place] [address] PCP - [facility]09/22/22Team MemberRelationshipSpecialtyStart DateEnd Date Nisa Shepherd CNP [address] [place] [address] PCP - [facility]09/22/22Team MemberRelationshipSpecialtyStart DateEnd Date Nisa Shepherd CNP [address] [place] [address] PCP - [facility]09/22/22Team MemberRelationshipSpecialtyStart DateEnd Date Nisa Shepherd CNP [address] [place] [address] PCP - [facility]09/22/22Team MemberRelationshipSpecialtyStart DateEnd Date Nisa Shepherd CNP [address] [place] [address] PCP - [facility]09/22/22Team MemberRelationshipSpecialtyStart DateEnd Date Nisa Shepherd CNP [address] [place] [address] PCP - [facility]09/22/22Team MemberRelationshipSpecialtyStart DateEnd Date Nisa Shepherd CNP [address] [place] [address] PCP - [facility]09/22/22 Team Status: Inactive Member Role Status Dates Vinay Matta DO Primary Care Provide r, Attending Provider Active Start: February 11, 2024 End: February 11, 2024Team MemberRelationshipSpecialtyStart DateEnd Date Nisa Shepherd CNP [address] [place] [address] PCP - [facility]09/22/22Team MemberRelationshipSpecialtyStart DateEnd Date Nisa Shepherd CNP [address] [place] [address] PCP - [facility]09/22/22Team MemberRelationshipSpecialtyStart DateEnd Date Nisa Shepherd CNP [address] [place] [address] [facility] - [facility]09/22/22Team MemberRelationshipSpecialtyStart DateEnd Date Nisa Shepherd CNP [address] [place] [address] [facility] - [facility]09/22/22 Team Status: Inactive Member Role Status Dates [...] Team Status: Inactive Member Role Status Dates Viany Matta DO Primary Care Provider Active Start: July 04, 2024 End: July 04bdul Terry , MDAttending ProviderActiveStart: July 04, 2024 End: July 04, 2024Team MemberRelationshipSpecialtyStart DateEnd Date Nisa Shepherd CNP [address] [place] [address] PCP - [facility]09/22/22 Team Status: Active Member Role Status Dates [...] 22, 2024Team MemberRelationshipSpecialtyStart DateEnd Date JwhomerVinay [address] [place] [address] [facility] - [facility]01/13/24 Trae Mccarty MD [address] [place] [address] PCP - [facility]11/16/23Team MemberRelationshipSpecialtyStart DateEnd Date JwhomerVinay [address] [place] [place] [address] [facility] - [facility]01/13/24 Trae Mccarty MD [address] [place] [address] PCP - [facility]11/16/23 Team Status: Inactive Member Role Status Dates Vinay Matta DO Primary Care Provide r, Attending Provider Active Start: September 19, 2024 End: September 19, 2024Team MemberRelationshipSpecialtyStart DateEnd Date Nisa Shepherd CNP [address] [place] [address] PCP - [facility]09/22/22Team MemberRelationshipSpecialtyStart DateEnd Date Nisa Shepherd CNP [address] [place] [address] PCP - [facility]09/22/22Team MemberRelationshipSpecialtyStart DateEnd Date Vinay Matta [address] [place] [address] PCP - [facility]01/13/24 Trae Mccarty MD [address] [facility] [place] [address] PCP - [facility]11/16/23 Team Status: Inactive Member [...] 2024Team MemberRelationshipSpecialtyStart DateEnd Date Vinay Matta [address] [place] [address] [facility]/13/24 Trae Mccarty MD [address] [place] [place] [address] PCP - [facility]11/16/23Team MemberRelationshipSpecialtyStart DateEnd Date Vinay Matta [address] [place] [address] [facility]01/13/24 Trae Mccarty MD [address] [place] [place] [address] PCP - [facility]11/16/23Team MemberRelationshipSpecialtyStart DateEnd Date Nisa Shepherd CNP [address] [place] [address] [place] [address] [facility] - [facility]09/22/22Team MemberRelationshipSpecialtyStart DateEnd Date Nisa Shepherd RICE FIELD WORKER [address] [place] [address] PCP - [facility]09/22/22 Team Status: Inactive Member Role Status Dates Vinay Matta DO Primary Care Provider Active Start: February 08, 2025 End: February 08ndlarissa Bruner MDAttending ProviderActiveStart: February 08, 2025 End: February 08, 2025Team MemberRelationshipSpecialtyStart DateEnd Date Vinay Matta [address] [place] [address] PCP - [facility]01/13/24 Trae Mccarty MD [address] [facility] [place] [address] [facility]11/16/23Team MemberRelationshipSpecialtyStart DateEnd Date Nisa Shepherd RICE FIELD WORKER [address] [facility] [address] PCP - [facility]09/22/22 Team Status: Inactive Member Role Status Dates [...] any alcohol or drug abuse patient.[facility] SystemIn the event this information is protected by the Federal Confidentiality of Alcohol and Drug Abuse Patient Records regulations: The Federal rules restrict any use of the information to criminally investigate or prosecute any alcohol or drug abuse patient.[facility] SystemIn the event this information is protected by the Federal Confidentiality of Alcohol and Drug Abuse Patient Records regulations: The Federal rules restrict any use of the information to criminally investigate or prosecute any alcohol or drug abuse patient.[facility] SystemIn the event this information is protected by the Federal Confidentiality of Alcohol and Drug Abuse Patient Records regulations: The Federal rules restrict any use of the information to criminally investigate or prosecute any alcohol or drug abuse patient.[facility] SystemIn the event this information is protected by the Federal Confidentiality of Alcohol and Drug Abuse Patient Records regulations: The Federal rules restrict any use of the information to criminally investigate or prosecute any alcohol or drug abuse patient.[facility] SystemIn the event this information is protected by the Federal Confidentiality of Alcohol and Drug Abuse Patient Records regulations: The Federal rules restrict any use of the information to criminally investigate or prosecute any alcohol or drug abuse patient.[facility] SystemIn the event this information is protected by the Federal Confidentiality of Alcohol and Drug Abuse Patient Records regulations: The Federal rules restrict any use of the information to criminally investigate or prosecute any alcohol or drug abuse patient.[facility] SystemIn the event this information is protected by the Federal Confidentiality of Alcohol and Drug Abuse Patient Records regulations: The Federal rules restrict any use of the information to criminally investigate or prosecute any alcohol or drug abuse patient.[facility] SystemIn the event this information is protected by the Federal Confidentiality of Alcohol and Drug Abuse Patient Records regulations: The Federal rules restrict any use of the information to criminally investigate or prosecute any alcohol or drug abuse patient.[facility] SystemIn the event this information is protected by the Federal Confidentiality of Alcohol and Drug Abuse Patient Records regulations: The Federal rules restrict any use of the information to criminally investigate or prosecute any alcohol or drug abuse patient.[facility] SystemIn the event this information is protected by the Federal Confidentiality of Alcohol and Drug Abuse Patient Records regulations: The Federal rules restrict any use of the information to criminally investigate or prosecute any alcohol or drug abuse patient.[facility] SystemIn the event this information is protected by the Federal Confidentiality of Alcohol and Drug Abuse Patient Records regulations: The Federal rules restrict any use of the information to criminally investigate or prosecute any alcohol or drug abuse patient.[facility] SystemIn the event this information is protected by the Federal Confidentiality of Alcohol and Drug Abuse Patient Records regulations: The Federal rules restrict any use of the information to criminally investigate or prosecute any alcohol or drug abuse patient.[facility] SystemIn the event this information is protected by the Federal Confidentiality of Alcohol and Drug Abuse Patient Records regulations: The Federal rules restrict any use of the information to criminally investigate or prosecute any alcohol or drug abuse patient.[facility] SystemIn the event this information is protected by the Federal Confidentiality of Alcohol and Drug Abuse Patient Records regulations: The Federal rules restrict any use of the information to criminally investigate or prosecute any alcohol or drug abuse patient.[facility] SystemIn the event this information is protected by the Federal Confidentiality of Alcohol and Drug Abuse Patient Records regulations: The Federal rules restrict any use of the information to criminally investigate or prosecute any alcohol or drug abuse patient.[facility] SystemIn the event this information is protected by the Federal Confidentiality of Alcohol and Drug Abuse Patient Records regulations: The Federal rules restrict any use of the information to criminally investigate or prosecute any alcohol or drug abuse patient.[facility] SystemIn the event this information is protected by the Federal Confidentiality of Alcohol and Drug Abuse Patient Records regulations: The Federal rules restrict any use of the information to criminally investigate or prosecute any alcohol or drug abuse patient.[facility] SystemIn the event this information is protected by the Federal Confidentiality of Alcohol and Drug Abuse Patient Records regulations: The Federal rules restrict any use of the information to criminally investigate or prosecute any alcohol or drug abuse patient.[facility] SystemIn the event this information is protected by the Federal Confidentiality of Alcohol and Drug Abuse Patient Records regulations: The Federal rules restrict any use of the information to criminally investigate or prosecute any alcohol or drug abuse patient.[facility] SystemIn the event this information is protected by the Federal Confidentiality of Alcohol and Drug Abuse Patient Records regulations: The Federal rules restrict any use of the information to criminally investigate or prosecute any alcohol or drug abuse patient.[facility] SystemIn the event this information is protected by the Federal Confidentiality of Alcohol and Drug Abuse Patient Records regulations: The Federal rules restrict any use of the information to criminally investigate or prosecute any alcohol or drug abuse patient.[facility] SystemIn the event this information is protected by the Federal Confidentiality of Alcohol and Drug Abuse Patient Records regulations: The Federal rules restrict any use of the information to criminally investigate or prosecute any alcohol or drug abuse patient.[facility] SystemIn the event this information is protected by the Federal Confidentiality of Alcohol and Drug Abuse Patient Records regulations: The Federal rules restrict any use of the information to criminally investigate or prosecute any alcohol or drug abuse patient.[facility] SystemIn the event this information is protected by the Federal Confidentiality of Alcohol and Drug Abuse Patient Records regulations: The Federal rules restrict any use of the information to criminally investigate or prosecute any alcohol or drug abuse patient.[facility] SystemIn the event this information is protected by the Federal Confidentiality of Alcohol and Drug Abuse Patient Records regulations: The Federal rules restrict any use of the information to criminally investigate or prosecute any alcohol or drug abuse patient.[facility] SystemIn the event this information is protected by the Federal Confidentiality of Alcohol and Drug Abuse Patient Records regulations: The Federal rules restrict any use of the information to criminally investigate or prosecute any alcohol or drug abuse patient.[facility] SystemIn the event this information is protected by the Federal Confidentiality of Alcohol and Drug Abuse Patient Records regulations: The Federal rules restrict any use of the information to criminally investigate or prosecute any alcohol or drug abuse patient.[facility] SystemIn the event this information is protected by the Federal Confidentiality of Alcohol and Drug Abuse Patient Records regulations: The Federal rules restrict any use of the information to criminally investigate or prosecute any alcohol or drug abuse patient.[facility] SystemIn the event this information is protected by the Federal Confidentiality of Alcohol and Drug Abuse Patient Records regulations: The Federal rules restrict any use of the information to criminally investigate or prosecute any alcohol or drug abuse patient.[facility] SystemIn the event this information is protected by the Federal Confidentiality of Alcohol and Drug Abuse Patient Records regulations: The Federal rules restrict any use of the information to criminally investigate or prosecute any alcohol or drug abuse patient.[facility] SystemIn the event this information is protected by the Federal Confidentiality of Alcohol and Drug Abuse Patient Records regulations: The Federal rules restrict any use of the information to criminally investigate or prosecute any alcohol or drug abuse patient.[facility] SystemIn the event this information is protected by the Federal Confidentiality of Alcohol and Drug Abuse Patient Records regulations: The Federal rules restrict any use of the information to criminally investigate or prosecute any alcohol or drug abuse patient.[facility] SystemIn the event this information is protected by the Federal Confidentiality of Alcohol and Drug Abuse Patient Records regulations: The Federal rules restrict any use of the information to criminally investigate or prosecute any alcohol or drug abuse patient.[facility] SystemIn the event this information is protected by the Federal Confidentiality of Alcohol and Drug Abuse Patient Records regulations: The Federal rules restrict any use of the information to criminally investigate or prosecute any alcohol or drug abuse patient.[facility] SystemIn the event this information is protected by the Federal Confidentiality of Alcohol and Drug Abuse Patient Records regulations: The Federal rules restrict any use of the information to criminally investigate or prosecute any alcohol or drug abuse patient.[facility] SystemIn the event this information is protected by the Federal Confidentiality of Alcohol and Drug Abuse Patient Records regulations: The Federal rules restrict any use of the information to criminally investigate or prosecute any alcohol or drug abuse patient.[facility] Reason for Visit (unrecogniz ed section and content) ReasonCommentsAnemiaNew patient consultationReasonCommentsResults, LabReason CommentsBenefits InvestigationReasonCommentsAnemiaSpecialtyDiagnoses / ProceduresReferred By ContactReferred To Contact Diagnoses Iron deficiency anemia due to chronic blood loss Procedures IRON SUCROSE INJECTION PER 1 MG Henry Walker MD [address] [place] [id number] [facility] [address] [place] [address] Referral IDStatusReasonStart DateExpiration DateVisits RequestedVisits [id number] for [id number] IDStatus ReasonStart DateExpiration DateVisits RequestedVisits [id number] month follow upReasonCommentsAnemiaFollow upReasonCommentsAnemia2 month follow up ReasonCommentsPatient UpdateReasonCommentsAnemia3 month follow upReasonComments IV IronSpecialtyDiagnoses / ProceduresReferred By ContactReferred To Contact Diagnoses Iron deficiency anemia due to chronic blood loss Procedures IRON SUCROSE INJECTION PER 1 MG Daksha Bridges PA-C [address] [place] [address] [place] [address] [facility] [address] [place] [address] Referral IDStatusReasonStart DateExpiration DateVisits RequestedVisits [id number] 3b chronic kidney diseaseReasonCommentsLab OrdersReasonCommentsTransient Ischemic AttackReasonOnset DateCommentsResults, Lab01/09/2025ReasonOnset DateComments labs/follow up04/11/2025 INFORMATION SOURCE (unrecogn ized section and content) DATE CREATED AUTHOR 03/30/2023 [facility] DATE CREATED AUTHOR AUTHOR'S ORGANIZ ATION 05/12/2023 [facility] DATE CREATED AUTHOR AUTHOR'S ORGANIZ ATION 03/27/2025 [facility] DATE CREATED AUTHOR AUTHOR'S ORGANIZ ATION 03/28/2025 [facility] DATE CREATED AUTHOR AUTHOR'S ORGANIZ ATION 04/01/2025 [facility] DATE CREATED AUTHOR AUTHOR'S ORGANIZ ATION 05/10/2025 [facility] DATE CREATED AUTHOR AUTHOR'S ORGANIZ ATION 06/09/2025 [facility] DATE CREATED AUTHOR AUTHOR'S ORGANIZ ATION 07/13/2025 [facility] DATE CREATED AUTHOR AUTHOR'S ORGANIZ ATION 08/04/2025 [facility] DATE CREATED AUTHOR AUTHOR'S ORGANIZ ATION 08/09/2025 [facility] Inactive Administered Medications - up to 3 most recent administrations Administered Medications (un recognized section and content) Medication OrderMAR ActionAction DateDoseRateSite iron sucrose 300 mg in NaCl 0.9% 250 mL (VENOFER) 300 mg, INTRAVENOUS, at 166.67 mL/hr, Administer over 90 Minutes, ONCE, 1 dose, On [facility] 02/18/24 at 1000, Please conduct a 30 minute post dose observation. Refrigerate New Bag/Syringe/Fjlbrj7102/18/2024 10:13 AM [id number] mg166.67 mL/hrMedication Order MAR ActionAction DateDoseRateSite iron sucrose 300 mg in NaCl 0.9% 250 mL (VENOFER) 300 mg, INTRAVENOUS, at 166.67 mL/hr, Administer over 90 Minutes, ONCE, 1 dose, On [facility] 02/25/24 at 1030, Please conduct a 30 minute post dose observation. Refrigerate New Bag/Syringe/Gcdurd5602/25/2024 10:18 AM [id number] mg166.67 mL/hr FOR RECORDS PERTAINING TO PATIENTS [...]
--- NOTE | 2025-10-18 10:35 | PM.CN ---
Consult Note: HPI Data of Consult Patient: known to practice within the last 3 years Requesting Physician: Janelle Day NP Primary Care Provider: VINAY MATTA Consult Narrative Reason for consult: f/u Narrative: 74yof who presents for evaluation. longstanding history of low back pain and RLE pain. lumbar xr reviewed, significant for multilevel spondylosis and sij degeneration. continues in a series of provider directed home exercises >6 weeks, without lasting benefit. uses gabapentin. denies adverse med side effects. recent MRI consistent with multilevel ddd, stenosis, and spondylosis. Patient not interested in scs trial/implant. Pain today 3/10 increasing at times to 5/10. notes increased pain with standing, walking, activity, pushing, pulling. denies falls/injury since last visit. notes at least 50% improvement in pain and functional ability post right L5/S1 S1/S2 TFESI. continues to endorse moderate back pain with standing and activity. cc:: CC: Janelle Day NP Review of Systems ROS Musculoskeletal Reports: back pain and extremity pain PFSH PFSH Medical History (Updated 09/27/25 @ 09:31 by Janelle Day NP) Anemia ?D64.9 - Anemia, unspecified (ICD-10) Hearing deficit ?H91.90 - Unspecified hearing loss, unspecified ear (ICD-10) Carpal tunnel syndrome ?G56.00 - Carpal tunnel syndrome, unspecified upper limb (ICD-10) Acid reflux ?K21.9 - Gastro-esophageal reflux disease without esophagitis (ICD-10) Diabetes ?E11.9 - Type 2 diabetes mellitus without complications (ICD-10) Kidney stone ?N20.0 - Calculus of kidney (ICD-10) COLTEN on CPAP ?G47.33 - Obstructive sleep apnea (adult) (pediatric) (ICD-10) Sleep apnea ?G47.30 - Sleep apnea, unspecified (ICD-10) High cholesterol ?E78.00 - Pure hypercholesterolemia, unspecified (ICD-10) Palpitations ?R00.2 - Palpitations (ICD-10) HTN (hypertension) ?I10 - Essential (primary) hypertension (ICD-10) Surgical History History of eye surgery ?Z98.890 - Other specified postprocedural states (ICD-10) History of carpal tunnel release ?Z98.890 - Other specified postprocedural states (ICD-10) History of hysterectomy ?Z90.710 - Acquired absence of both cervix and uterus (ICD-10) Hx of cholecystectomy ?Z90.49 - Acquired absence of other specified parts of digestive tract (ICD-10) Social History Smoking status: Never smoker Meds Home Medications and Allergies Home Medications ?Medication ?Instructions ?Recorded ?Confirmed ?Type allopurinol 300 mg tablet 300 mg PO DAILY 01/21/24 10/09/25 History atenolol 50 mg tablet 50 mg PO Q24H 01/21/24 10/09/25 History atorvastatin 20 mg tablet 20 mg PO DAILY 01/21/24 10/09/25 History gabapentin 300 mg capsule 300 mg PO TID 01/21/24 10/09/25 History glimepiride 2 mg tablet 2 mg PO BID 01/21/24 10/09/25 History lisinopril 20 1 tab PO DAILY 01/21/24 10/09/25 History mg-hydrochlorothiazide 12.5 mg tablet magnesium oxide 400 mg (241.3 mg 400 mg PO DAILY 01/21/24 10/09/25 History magnesium) tablet ropinirole 2 mg tablet 2 mg PO DAILY 01/21/24 10/09/25 History sitagliptin phosphate 50 mg tablet 50 mg PO DAILY 01/21/24 10/09/25 History (Januvia) ascorbic acid (vitamin C) 500 mg 500 mg PO DAILY 04/07/24 10/09/25 History chewable tablet (Acerola C) aspirin 81 mg tablet,delayed 81 mg PO DAILY 04/07/24 10/09/25 History release (Adult Low Dose Aspirin) cholecalciferol (vitamin D3) 25 1,000 unit PO DAILY 04/07/24 10/09/25 History mcg (1,000 unit) chewable tablet (VitaJoy Daily D) mecobalamin (vitamin B12) 1,000 1,000 mcg PO DAILY 04/07/24 10/09/25 History mcg chewable tablet omeprazole 20 mg capsule,delayed 20 mg PO DAILY 01/10/25 10/09/25 History release pioglitazone 15 mg tablet 15 mg PO BID 01/10/25 10/09/25 History resmetirom 80 mg tablet (Rezdiffra) 80 mg PO DAILY 01/10/25 10/09/25 History baclofen 10 mg tablet 10 mg PO Q12H 02/15/25 10/09/25 History loratadine 10 mg tablet (Claritin) 10 mg PO DAILY 02/20/25 10/09/25 History Allergies Allergy/AdvReac Type Severity Reaction Status Date / Time codeine AdvReac Intermediate gi upset Verified 10/09/25 09:09 Exam Constitutional Documenting provider has reviewed patient's vital signs: yes Common normals: no apparent distress, oriented x3 and alert General appearance: cooperative HENMT Common normals: normocephalic, hearing grossly normal bilaterally and moist oral mucous membranes Head and scalp: normocephalic Eye Common normals: PERRL Pupil: PERRL Neck & C-Spine Common normals: full ROM General: normal visual inspection Chest Common normals: inspection of chest normal Respiratory Common normals: normal respiratory effort, no retractions and no use of accessory muscles Back & Pelvis Lumbar spine/lower back: ROM limited and straight leg raise negative bilaterally; no pain with ROM, no lumbar spinal tenderness and no paraspinal muscle tenderness Other: increased low back pain with standing walking. improves with sitting and forward flexion negative facet loading, no axial facet pain Neuro Common normals: oriented x3 Sensorium/orientation: alert Psych Common normals: mental status grossly normal, thought process normal, cooperative, affect normal, speech normal and activity/motor behavior normal Speech: normal speech Thought process: normal thought process Results Additional Findings Additional findings: If on a controlled substance or opioids, I have checked an [place] report on this patient and there are no aberrancies noted in the prescribing history.??If on a controlled substance or opioid a drug screen was completed and reviewed within the last year, and if there has not been a drug screen completed we ordered one today to monitor higher risk, state monitored pain medication use. As part of providing excellent, safe, comprehensive care, the following was completed at our patient's visit: 1. A medication reconciliation and review to ensure accurate knowledge of current/active medications, including asking our patients to inform us about any [id number] medications or herbal remedies/nutritional supplements/alternative remedies. 2. A review to specifically ensure our patients have had annual screening for screening for depression, screening for tobacco use, and screening for unhealthy alcohol use. For concerning screenings had a discussion with the patient, provided patient education, and recommended follow-up with primary care provider when appropriate. If patient noted with a risk of falling, they received education on strength, gait, and balance training to prevent future risk of falling. Portions of this note may have been carried over from the previous visit and updated as appropriate. Please note this office utilizes paper charting in addition to the electronic medical record. A list of current medications, vitals, and PMH is available there as the clinical staff outside of myself do not have access to Polar charting during the clinic day operations. As part of providing quality comprehensive care the current medications, vitals, and PMH were reviewed in the paper chart. Assessment and Plan Assessment and Plan (1) Lumbosacral radiculopathy: (2) Lumbar stenosis with neurogenic claudication: Plan The patient has had over 3 months of moderate to severe low back and RLE pain with functional impairment and inadequate response to conservative care including NSAIDS (unless there are contraindication such as concurrent blood thinners), multiple oral or topical pain medications, and home exercise program/physical therapy.? Patient has completed >6 weeks of guided home exercise program and/or formal physical therapy program without relief of their symptoms.? I have reviewed the imaging of the lumbar spine and no red flags were identified.? The imaging reveals radiographic findings consistent with lumbar radiculopathy, lumbar stenosis with NC, lumbar ddd The Oswestry Disability Index was completed, and the patient scored a 30%.? right L5-S1 S1-2 TFESI providing moderate ongoing relief. continues to endorse moderate back pain with activity secondary to lumbar stenosis with NC but she is not interested in further workup continue HEP as tolerated cannot take NSAIDs with CKD patient not interested in scs trial/implant f/u 3 months, sooner if needed
== END 2025-10-18 09:57 | disposition home or self-care (01) ==
LOC: PM 09:56
PROVIDERS: PCP Family Medicine; Visit Provider Nurse Practitioner
DX: M54.16 Radiculopathy, lumbar region (principal); M48.062 Spinal stenosis, lumbar region with neurogenic claudication
CPT/HCPCS: G0463

== ENCOUNTER 2025-10-20 08:30 | Outpatient (OUT) | payer OTHER, SELFPAY ==
--- OUTSIDE RECORDS SUMMARY | 2025-10-20 08:44 | XMS_ITS | CCD ---
Author Organization [facility] CliniSyhi Care Team Providers Care Ripper Operator Name Role Phone Vinay Matta Primary Care Provider Bunting, Vinay Attending Provider VINAY MATTA R Primary Care Physician [phone] Bunting, DO Vinay Primary Care Provider Bunting, DO Vinay Attending Provider Bunting, DO Vinay Referring Provider Self, Referral Attending Provider Unavailable Bunting, DO Vinay Primary Care Provider Bunting, DO Vinay Attending Provider TROY Yusuf Emergency Provider TROY Yusuf Attending Provider [phone] Ruth [facility], [facility] Primary Care Provider Ruth PH[employer], [facility] Primary Care Provider Bunting, DO Vinay Primary Care Provider TROY Yusuf Emergency Provider TROY Yusuf Attending Provider Bunting, DO Vinay Attending Provider STARR Delcid Attending Provider Anh Delcid Unavailable Bunting, DO Vinay Primary Care Provider MD Rafael Edouard Attending Provider [phone] Bunting, DO Vinay Primary Care Provider [phone] Edouard, MD Rafael Attending Provider Bunting, DO Vinay Attending Provider MD Anthony Rose Emergency Provider MD Kimberly Arteaga Admit Provider MD Kimberly Arteaga Attending Provider DO Krissy Easton Other Provider Conner [facility]- Qu[place] Attending Provider [phone] BUNTING, DR MCLEAN Admitting Unavailable BUNTING, DR [...] Provider Bunting, DO Vinay Attending Provider Ruth [facility] Primary Care Provider Bunting, DO Vinay Primary Care Provider [phone] MD Marilyn Stewart Attending Provider Bunting, DO Vinay R Other Provider DO Bakari Barboza M Emergency Provider MD Comfort Monteiro Admit Provider MD Comfort Monteiro Attending Provider KapDO Ottoniel linton M Other Provider Bunting, Vinay R Primary Care Provider Trae Mccarty MD Unavailable Bunting, DO Vinay Primary Care Provider Tamra DO Villegas M Emergency Provider MD Comfort Monteiro Admit Provider MD Comfort Monteiro Attending Provider KapDO Ottoniel linton M Other Provider Bunting, DO Vinay Attending Provider Ruth FERMIN, [facility] A. Primary Care Provider Bunting DO, Vinay Primary Care Provider Bunting DO, Vinay Attending Provider Conner CLEMENTS-C, Queta Benavides Attending Provider Bunting DO, Vinay Primary Care Provider [phone] Bunting DO, Vinay Attending Provider Marilyn Stewart [...] Care Provider Verónica Ugarte MD Attending Provider [phone] Verónica Ugarte MD Referring Provider [phone] TAMMY SALDIVAR Attending Unavailable TAMMY SALDIVAR Attending Unavailable WINDNAGELMICHAELQUETA C Attending Unavailable Bradley Rowland MD Attending Provider Bunting DO, Vinay Attending Provider [phone] Marilyn Stewart MD Other Provider Marilyn Stewart [...] Admitting Unavailable Anselmo Stein Attending Unavailable Sheila, Ivnay Primary Care Unavailable CYRUS, DAKSHA M Referring [...] Unavailable CYRUS, DAKSHA M Attending Unavailable CYRUS, DKASHA M Referring Unavailable RUTH, NISA A. Primary Care Unavailable CYRUS, DAKSHA M Referring Unavailable RUTH, NISA A. Primary Care Unavailable CYRUS, DAKSHA M Attending Unavailable CYRUS, DAKSHA M Referring Unavailable RUTH, NISA A. Primary Care Unavailable Unavailable Unavailable Unavailable Allergies Allergy ClassificationReported Allergen(s)Allergy TypeDate of OnsetReaction(s) FacilityAcetaminophen / Codeine (1 source)Acetaminophen / CodeineDrug Sqqpnks86-21-1534Sbemp: See Comments [facility] Center[facility] ([facility] source)CodeineDrug Tujhifk50-43-0641Llivu: See CommentsSalem [facility] Center (20 sources)Acetaminophen / Codeine; Translations: [acetaminophen-codeine]Drug Bkexqde98-89-6106Pcjve stomach (finding), Other: See CommentsOur [facility] Of [facility] Comment on above:pt states she is unwilling to try even plain tylenol after this experience even though she states she took tylenol prior to this and had no problems (20 sources)Codeine; Translations: [codeine]Drug Tvssnus53-73-3852Nhwgf: See Comments, [facility] ([facility] sources)Acetaminophen / Codeine; Translations: [Tylenol with Codeine #3]Drug AllergyUnknowUniversity [facility]als [facility] Repository (1 source)traMADolDrug AllergyThe [facility] (20 sources)Acetaminophen; Translations: [acetaminophen]Drug Jukarit26-33-8317 Not allergic to [facility]lenolMed[facility] (14 sources)Acetaminophen / Codeine; Translations: [ACETAMINOPHEN-CODEINE]Drug Guysjtj91-27-2747SuvjrNMTT Healthcare Medications Current Medications MedicationDrug Class(es)DatesSig (Normalized)Sig (Original)[id number] 200 actuat albuterol 0.09 mg/actuat metered dose inhaler (20 sources)beta2-Adrenergic AgonistStart: 51-57-3863qrmqyaawo HFA (PROVENTIL HFA, VENTOLIN HFA) 90 mcg/actuation inhaler 10/12/2023 ActiveStart: 10-12-2023 take 2 puff(s) by mouth every four hours as needed for coughalbuterol HFA (PROVENTIL HFA, VENTOLIN HFA) 90 mcg/actuation inhaler INHALE 2 PUFFS BY MOUTH EVERY 4 HOURS NEEDED FOR COUGH 10/12/2023 ActiveStart: 24-73-9840wlel 1 puff(s) by inhalation every four to six hoursAlbuterol Sulfate Active 1 PUFF INHALATION EVERY 4-6 HOURS December 26, 2017 2:57pmStart: 96-34-5256zxix 1 puff(s) by inhalation every four to six hoursAlbuterol Sulfate Active 1 PUFF INHALATION EVERY 4-6 HOURS December 26, 2017 12:00amStart: 12-26-2017 End: 85-52-8511klsn 1 puff(s) by inhalation every four to six hours as needed for wheezingAlbuterol Sulfate 90 mcg/actuation Hfa Aerosol Inhaler Discontinued 1 PUFF INHALATION EVERY 4-6 HOURS as needed for Shortness Of Breath Or Wheezing December 26, 2017 1:00am March 11, 2023 5:40pmStart: 12-26-2017 End: 17-89-8592gobx 1 puff(s) by inhalation every four to six hoursAlbuterol Sulfate Discontinued 1 PUFF INHALATION EVERY 4-6 HOURS December 26, 2017 12:00am March 11, 2023 4:40pmStart: 12-26-2017 End: 73-94-4197pelt 1 puff(s) by inhalation every four to six hoursAlbuterol Sulfate Discontinued 1 PUFF INHALATION EVERY 4-6 HOURS December 26, 2017 1:00am March 11, 2023 5:40pmStart: 11-27-0217zlxr 1 puff(s) by inhalation every four to six hoursAlbuterol Sulfate Active 1 PUFF INHALATION EVERY 4-6 HOURS December 26, 2017 12:00amComment on above:INHALE 2 PUFFS BY MOUTH EVERY 4 HOURS NEEDED FOR COUGHallopurinol 300 mg oral tablet (20 sources)Xanthine Oxidase InhibitorStart: 09-70-8790xpvz 1 tablet by mouth once dailyAllopurinol 300 mg tablet Active 300 MG PO Daily May 11, 2024 12:00am Complies with drug therapyStart: 01-21-2022 End: 32-33-0855rous 1 tablet by mouth twice dailyAllopurinol 100 mg tablet Discontinued 100 MG PO Twice daily December 29, 2022 1:00am May 11, 2024 11:49am End: 92-81-3562ockl 1 tablet by mouth once dailyallopurinol (ZYLOPRIM) 100 mg tablet Take 100 mg by mouth once daily. 07/15/2024 DiscontinuedComment on above: Take 100 mg by mouth once daily.amoxicillin 875 mg / clavulanate 125 mg oral tablet (6 sources)Penicillin-class AntibacterialStart: 45-24-5569fnoegikspvn- clavulanate potassium (AUGMENTIN) 875-125 mg per tablet 01/02/2025 ActiveStart: 74-43-8961limf 1 tablet by mouth every twelve hoursAmoxicillin-Pot [...] sources)Platelet Aggregation Inhibitor, Nonsteroidal Anti-inflammatory Drug Start: 35-42-9694dbti 1 tablet by mouth once dailyAspirin 81 mg Tablet Active 81 MG PO Daily March 11, 2023 12:00am Complies with drug therapyStart: 32-90-4502xldf 1 tablet by mouth once dailyaspirin 81 mg Oral EC Tab 81 mg = 1 tab(s), Oral, Daily, # 30 tab(s), Refills(s) 0, Pharmacy: [facility], 165, cm, 01/19/22 22:12:00 EST, Height/Length Dosing, 90, kg, 01/19/22 22:12:00 EST, Weight Dosing Start Date: 01/21/22 Status: Ordered Quantity: 30.0 Unit: tab(s) Repeat number: 1Comment on above:Take 81 mg by mouth once daily. atenolol 50 mg oral tablet (20 sources)beta-Adrenergic BlockerStart: 91-93-3521fbcr 1 tablet by mouth once dailyAtenolol 50 mg Tablet Active 50 MG PO Daily December 26, 2017 1:00am Complies with drug therapyAtenolol ActiveComment on above:Take 50 mg by mouth once daily.atorvastatin 20 mg oral tablet (20 sources)HMG-CoA Reductase InhibitorStart: 09-01-4689hfho 1 tablet by mouth once dailyAtorvastatin 20 mg Tablet Active 20 MG PO Daily December 26, 2017 1:00am Complies with drug therapyAtorvastatin Calcium ActiveComment on above: Take 20 mg by mouth once daily.baclofen 10 mg oral tablet (11 sources)gamma-Aminobutyric Acid-ergic AgonistStart: 10-37-4581snko 5 mg by mouth once daily at bedtimeBaclofen 10 mg tablet Active 5 MG PO Daily at bedtime July 05, 2025 12:00am Complies with drug therapyStart: 65-01-4037hmpf 5 mg by mouth once dailybaclofen 10 mg tablet Take 5 mg by mouth once daily. 03/30/2025 ActiveStart: 56-21-7993utqrypln 10 mg Tab Refills(s) 0 Start Date: 03/30/25 Status: Ordered Repeat number: 1Biotin (2 sources)Biotin Activecalcium ascorbate 500 mg oral tablet (16 sources)Start: 28-57-1273fwqr 1 tablet by mouth once dailyAscorbate Calcium (Vitamin C) 500 mg tablet Active 500 MG PO Daily May 11, 2024 12:00am Complieswith drug therapycholecalciferol 0.025 mg oral capsule (20 sources)Vitamin DStart: 99-90-7688ibhq 1 capsule by mouth once daily Cholecalciferol (Vitamin D3) (Vitamin D3) 25 mcg (1,000 unit) capsule Active 25 MCG PO Daily July 21, 2024 12:00am Complies with drug therapyStart: 05-11-2024 End: 69-25-3830fhsn 1 capsule by mouth once dailyCholecalciferol (Vitamin D3) 125 mcg (5,000 unit) capsule Discontinued 125 MCG PO Daily May 11, 2024 12:00am July 21, 2024 12:26pmStart: 93-53-2946ntqp 1 tablet by mouth once dailycholecalciferol 1000 intl units oral tablet 25 mcg = 1 tab(s), Oral, Daily, Prophylaxis Start Date:01/20/22 Status: Ordered Repeat number: 1Start: 01-20-2022 take 1 tablet by mouth once dailycholecalciferol 1000 intl units oral tablet 25 mcg = 1 tab(s), Oral, Daily, Prophylaxis Start Date:01/20/22 Status: OrderedStart: 49-24-5922hkmq 1 tablet by mouth once dailycholecalciferol 1000 intl units oral tablet 25 mcg = 1 tab(s), Oral, Daily Start Date: 01/20/22 Status: Orderedtake 1 tablet by mouth in the morningcholecalciferol (Vitamin D-3) 25 MCG (1000 UT) tablet Take 1,000 Units by mouth in the morning. ActiveComment on above:Take 1,000 Units by mouth once daily.diphenhydrAMINE hydrochloride 12.5 mg chewable tablet (12 sources)Histamine-1 Receptor AntagonistStart: 38-34-0997uokenhdkimWUVQX HCl (CHILDREN'S BENADRYL ALLERGY) 12.5 mg chewable tablet 25 mg. 09/29/2024 Active Fluzone High-Dose Quadrivalent syringe (13 sources)Start: 60-44-3850Mxeaafb High-Dose Quadrivalent syringe Inject 0.7 mL into the shoulder, thigh, or buttocks 1 (one) time 11/25/2023 Active glimepiride 2 mg oral tablet (20 sources)SulfonylureaStart: 05-75-3508oaek 1 tablet by mouth twice daily Glimepiride 2 mg Tablet Active 2 MG PO Twice daily December 26, 2017 1:00am Complies with drug therapyStart: 68-49-8423teai 2 mg by mouth once daily in the morningGlimepiride Active 2 MG PO Every morning December 26, 2017 12:00am Glimepiride ActiveComment on above:Take 2 mg by mouth daily with breakfast. hydroCHLOROthiazide 12.5 mg / lisinopril 20 mg oral tablet (20 sources)Thiazide Diuretic, Angiotensin Converting Enzyme InhibitorStart: 31-90-0759hopo 1 tablet by mouth once dailyLisinopril-Hydrochlorothiazide 20- 12.5 mg Tablet Active 1 TAB PO Daily December 26, 2017 1:00am Complies with drug therapytake 10-12.5 mg by mouth oncelisinopril-hydroCHLOROthiazide (PRINZIDE,ZESTORETIC) 10-12.5 mg per tablet Take 1 tablet by mouth once daily. ActiveLisinopril-hydroCHLOROthiazide ActiveComment on above:Take 1 tablet by mouth once daily.loratadine 10 mg oral tablet (5 sources)Start: 47-63-7303jadq 1 tablet by mouth once dailyLoratadine (Claritin) 10 mg tablet Active 10 MG PO Daily July 24, 2025 12:00am Complies with drug therapyStart: 01-60-8282Zpanojqg Daily, Takes due too itching from Paulino, Refills(s) 0 Start Date: 03/30/25 Status: Ordered Repeat number: 1loratadine (CLARITIN) 5 mg/5 mL syrup Take 5 mg by mouth as needed for cold/allergy symptoms. ActiveMagnesium (4 sources)Start: 42-94-9794Xbijvreud Magnesium Start Date: 03/28/24 Status: Ordered Repeat number: 1Start: 14-57-0796Vzhkqgnxx Magnesium Start Date: 03/28/24 Status: Orderedmagnesium oxide 400 mg oral tablet (20 sources)Start: 56-12-5959pheh 1 tablet by mouth twice dailyMagnesium Oxide 400 mg magnesium tablet Active 400 MG PO Twice daily May 11, 2024 12:00am Complies with drug therapyStart: 46-84-0615wffe 1 tablet by mouth once daily magnesium oxide 400 mg magnesium tab Take 1 tablet by mouth once daily. 02/03/2023 ActiveStart: 56-19-5945drov 1 tablet by mouth once dailyMAGNESIUM OXIDE ORAL Take 1 tablet by mouth once daily. 0 02/03/2023 ActiveComment on above:Take 1 tablet by mouth twice daily.Take 1 tablet by mouth once daily. omeprazole 20 mg delayed release oral capsule (20 sources)Proton Pump InhibitorStart: 66-59-4953sxvk 1 capsule by mouth once dailyOmeprazole 20 mg capsule,delayed release(DR/EC) Active 20 MG PO Daily May 11, 2024 12:00am Complies with drug therapyStart: 12-26-2017 End: 84-67-6101pqag 1 tablet by mouth once dailyOmeprazole Magnesium (Prilosec Otc) 20 mg Tablet,Delayed Release (Dr/Ec) Discontinued 20 MG PO Daily December 26, 2017 1:00am May 11, 2024 11:53amPriLOSEC ActiveComment on above:Take 20 mg by mouth once daily.pioglitazone 15 mg oral tablet (13 sources)Peroxisome Proliferator Receptor alpha Agonist, Peroxisome Proliferator Receptor gamma Agonist, ThiazolidinedioneStart: 12-15-3922jpob 1 tablet by mouth once dailyPioglitazone 15 mg tablet Active 15 MG PO Daily July 05, 2025 12:00am Complies with drug therapyPrenatal (2 sources) ActiveResmetirom (16 sources)Start: 19-07-6774xesv 1 tablet by mouth once dailyResmetirom (Rezdiffra) 80 mg tablet Active 80 MG PO Daily May 11, 2024 12:00am Complies with drug therapyStart: 03-21-9203mwll 1 tablet by mouth once dailyStart: 47-81-4101efrk 1 tablet by mouth once dailyResmetirom (Rezdiffra) 80 mg tablet Active 80 MG PO Daily May 10, 2024 11:00pmStart: 30-84-4099ufqp 1 tablet by mouth once dailyResmetirom (Rezdiffra) 80 mg tablet Active 80 MG PO Daily May 11, 2024 12:00amresmetirom (REZDIFFRA) 80 mg tablet (9 sources)Start: 52-34-2150cymaxgnvhx (REZDIFFRA) 80 mg tablet once daily. 05/11/2024 Activeresmetirom 80 MG Oral Tablet [Rezdiffra] (3 sources)Start: 93-41-6258Zztckuwih 80 mg oral tablet Refills(s) 0 Start Date: 09/29/24 Status: Ordered Repeat number: 1Start: 50-40-9714Geqetofws 80 mg oral tablet Refills(s) 0 Start Date: 09/29/24 Status: OrderedrOPINIRole 2 mg oral tablet (20 sources)Nonergot Dopamine AgonistStart: 12-29-2022 End: 19-09-0808gmkx 1 tablet by mouth once daily at bedtimeRopinirole 2 mg tablet Active 2 MG PO Daily at bedtime May 11, 2024 12:00am Complies with drug therapyStart: 20-87-0255olsh 2 tablets by mouth at bedtimeropinirole 0.5 [...] oral tablet (20 sources)Dipeptidyl Peptidase 4 InhibitorStart: 60-32-3658vygx 1 tablet by mouth once dailySitagliptin Phosphate (Januvia) 50 mg tablet Active 50 MG PO Daily May 11, 2024 12:00am Complieswith drug therapyComment on above:Take 1 tablet by mouth every afternoon.vit B complex no.12/niacin,B3, (VITAMIN B COMPLEX NO.12-NIACIN ORAL) (1 source)vit B complex no.12/niacin,B3, (VITAMIN B COMPLEX NO.12-NIACIN ORAL) Vitamin B 12 Activevitamin B12 (20 sources)Vitamin X86Ehsed: 50-16-0212Etdvcqj B12 Refills(s) 0 Start Date: 04/15/23 Status: Ordered Repeat number: 1Start: 14-34-4468Zdzbzty B12 Refills(s) 0 Start Date: 04/15/23 Status: OrderedStart: 41-18-9744hmbt 1 tablet by mouth once dailyCyanocobalamin (Vitamin B-12) (Vitamin B-12) 1,000 mcg Tablet Active 1000 MCG PO Daily March 13, 2023 12:00am Complies with drug therapyStart: 03-11-2023 End: 90-28-5710qoyq 1 tablet by mouth once dailyCyanocobalamin (Vitamin B-12) (Vitamin B-12) 50 mcg Tablet Discontinued 50 MCG PO Daily February 12:00am March 13, 2023 9:52amVitamin D3 (2 sources)Vitamin D3 Active Completed/Discontinued Medications MedicationDrug Class(es)DatesSig (Normalized)Sig (Original)Albuterol Sulfate 90 mcg/actuation Hfa Aerosol Inhaler (5 sources)Start: 12-26-2017 End: 26-99-8575ivrq 1 puff(s) by inhalation every four to six hours as needed for wheezingAlbuterol Sulfate 90 mcg/actuation Hfa Aerosol Inhaler Discontinued 1 PUFF INHALATION EVERY 4-6 HOURS as needed for Shortness Of Breath Or Wheezing December 26, 2017 1:00am March 11, 2023 5:40pmStart: 12-26-2017 End: 32-43-3267kpgi 1 puff(s) by inhalation every four to six hours as needed for wheezingAlbuterol Sulfate 90 mcg/actuation Hfa Aerosol Inhaler Discontinued 1 PUFF INHALATION EVERY 4-6 HOURS as needed for Shortness Of Breath Or Wheezing December 26, 2017 12:00am March 11, 2023 4:40pmascorbic acid 500 mg oral tablet (20 sources)Vitamin CStart: 01-20-2022 End: 92-16-8363inbr 1 tablet by mouth once dailyAscorbic Acid (Vitamin C) (Vitamin C) 500 mg Tablet Discontinued 500 MG PO Daily March 11, 2023 12:00am May 11, 2024 11:48amVitamin C Activebenzonatate 200 mg oral capsule (20 sources)Non-narcotic AntitussiveStart: 12-26-2017 End: 74-14-3481zvmn 1 capsule by mouth twice daily as needed for cough Benzonatate 200 mg Capsule Discontinued 200 MG PO Twice daily as needed for Cough December 26, 2017 1:00am December 29, 2022 2:19pmcalcium carbonate 250 mg / magnesium carbonate 300 mg oral tablet (20 sources)Start: 02-04-2023 End: 11-09-1364Mvmsssm Carb-Magnesium Carb 250-300 mg tab Take by mouth. 02/04/2023 07/15/2024 DiscontinuedStart: 32-58-9500OcbuaVmym 300 oral tablet 1 tab(s), Oral, Daily, 150 tab(s), Refill(s) 0, [facility], 160, cm, 12/24/22 10:14:00 EST, Height/Length Dosing, 97.2, kg, 12/24/22 10:14:00 EST, Weight Dosing Start Date: 02/04/23 Status: Ordered Quantity: 150.0 Unit: tab(s) Repeat number: 1Comment on above:Take by mouth.cefdinir 300 mg oral capsule (20 sources)Cephalosporin AntibacterialStart: 12-26-2017 End: 06-99-8613dmjx 1 capsule by mouth every twelve hoursCefdinir 300 mg Capsule Discontinued 300 MG PO Q12H December 26, 2017 1:00am December 29, 2022 2 :20pmCefdinir Not-Takingcephalexin 500 mg oral capsule (20 sources)Cephalosporin AntibacterialStart: 03-13-2023 End: 14-24-6297fzbw 1 capsule by mouth twice dailyCephalexin 500 mg capsule Discontinued 500 MG PO Twice daily 10 March 13, 2023 12:00am May 11, 2024 11:48amStart: 07-22-2022 End: 80-72-0722cuxi 1 capsule by mouth every eight hoursCephalexin 500 mg capsule Discontinued 500 MG PO Q8H 05 06July 22, 2022 12:00am December 29, 2022 2:20pmcodeine phosphate 2 mg/ml / promethazine hydrochloride 1.25 mg/ml oral solution (20 sources)Opioid Agonist, PhenothiazineStart: 12-26-2017 End: 38-84-5610omqm 1 mL by mouth every four hours as needed for cough Promethazine-Codeine 6.25-10 mg/5 mL Syrup Discontinued 5 ML PO Q4H as needed for Cough 120 December 26, 2017 1:00am December 29, 2022 2:21pmdapagliflozin 10 mg oral tablet (20 sources)Sodium-Glucose Cotransporter 2 InhibitorStart: 07-06-2024 End: 15-04-1624joll 1 tablet by mouth once dailyDapagliflozin Propanediol (Farxiga) 10 mg tablet Discontinued 10 MG PO Daily July 21, 2024 12:00am December 27, 2024 3:21pm On Hold: Hold until seen by PCP. discuss alternative therapydiclofenac sodium 75 mg delayed release oral tablet (20 sources)Nonsteroidal Anti-inflammatory DrugStart: 12-29-2022 End: 88-09-5163yrvn 1 tablet by mouth twice dailyDiclofenac Sodium 75 mg tablet,delayed release (DR/EC) Discontinued 75 MG PO Twice daily December 29, 2022 1:00am March 13, 2023 9:47amStart: 04-23-2022 End: 97-49-9749akpu 1 tablet by mouth once dailydiclofenac sodium 75 mg Oral EC Tab 75 mg = 1 tab(s), Oral, Daily, Refills(s) 0, Pain Start Date: 04/23/22 Status: OrderedStart: 71-58-3389yezowkrtlv sodium 75 mg Oral EC Tab Refills(s) 0 Start Date: 04/23/22 Status: OrderedComment on above:Take 75 mg by mouth once daily. doxycycline monohydrate 100 mg oral capsule (20 sources)Tetracycline-class DrugStart: 12-26-2017 End: 10-79-4676dgym 1 capsule by mouth twice dailyDoxycycline Monohydrate 100 mg Capsule Discontinued 100 MG PO Twice daily December 26, 2017 1:00am December 29, 2022 2:20pmergocalciferol 0.2 mg/ml oral solution (20 sources)Provitamin D2 CompoundStart: 03-11-2023 End: 36-95-2389nmjn 200 ug by mouth once dailyErgocalciferol (Vitamin D2) 200 mcg/mL (8,000 unit/mL) Drops Discontinued 200 MCG PO Daily March 11, 2023 12:00am May 11, 2024 11:46amferrous sulfate 325 mg oral tablet (3 sources) End: 69-24-6622qnfxccp sulfate 325 mg (65 mg iron) tablet Take 325 mg by mouth. 0 07/24/2023 DiscontinuedComment on above:Take 325 mg by mouth.fluticasone propionate 0.05 mg/actuat metered dose nasal spray (20 sources)CorticosteroidStart: 79-13-4426uiio 1 spray(s) nasal route once dailyFluticasone Propionate 50 MCG/ACT 1 spray in each nostril Nasally Once a day for 21 days Feb, Not-TakingStart: 12-26-2017 End: 92-07-5128Jqslnqvuvgq Propionate 50 mcg/actuation [place],Suspension Discontinued 1 SPRAY INTRANASAL Daily December 26, 2017 1:00am December 29, 2022 2:20pmfurosemide 20 mg oral tablet (20 sources)Loop DiureticStart: 09-02-2022 End: 53-32-0033sbcb 1 tablet by mouth once daily in the morningFurosemide 20 mg tablet Discontinued 20 MG PO Every morning December 29, 2022 1:00am December 27, 2024 3:21pm On Hold: Continue to hold, follow-up with PCP to restart Comment on above:Take 20 mg by mouth once daily.gabapentin 300 mg oral capsule (20 sources)Anti-epileptic AgentStart: 03-29-2024 End: 23-59-3910vddw 1 capsule by mouth three times dailyGabapentin 300 mg capsule Active 300 MG PO Three times daily December 27, 2024 3:21pm Complies with drug therapyStart: 03-29-2024 End: 93-60-3802bwzt 1 capsule by mouth twice daily, then take 2 capsules by mouth at bedtimeGabapentin 300 mg capsule Discontinued 300 MG PO Twice daily May 11, 2024 11:50am December 3:23pm takes 1 in the afternoon and 2 before bedtimeStart: 12-26-2017 End: 02-08-3181ghhs 3 capsules by mouth at bedtimeGabapentin 300 mg Capsule Discontinued 900 MG PO Bedtime December 26, 2017 1:00am May 111:53am Start: 12-26-2017 End: 10-53-9586sxfh 900 mg by mouth at bedtimeGabapentin Discontinued 900 MG PO Bedtime December 26, 2017 12:00am May 11, 2024 10:53amStart: 98-00-0804fnhs 300 mg by mouth three times dailyGabapentin Active 300 MG PO Three times daily December 26, 2017 12:00amtake 1 capsule by mouth once daily at bedtime gabapentin (NEURONTIN) 300 mg capsule Take 300 mg by mouth daily at bedtime. ActiveGabapentin ActiveComment on above:Take 300 mg by mouth daily at bedtime. Honey (Medihoney (Honey)) 100 % paste (20 sources)Start: 12-29-2022 End: 96-93-0487Gsqjg (Medihoney (Honey)) 100 % paste Discontinued 1 APPLIC TOPICAL Twice daily December 292:00am March 11, 2023 4:44pmStart: 12-29-2022 End: 32-30-0675Mfqaq (Medihoney (Honey)) 100 % paste Discontinued 1 APPLIC TOPICAL Twice daily December 29:00am March 11, 2023 5:44pmStart: 36-10-1312Qqvij (Medihoney (Honey)) 100 % paste Active 1 APPLIC TOPICAL Twice daily December 29, 2022 12:00amMEDIHONEY, HONEY, 100 % pste (19 sources)Start: 12-01-2022 End: 80-63-4221YMONEZMHL, HONEY, 100 % pste APPLY A THIN LAYER TWICE DAILY 12/01/2022 07/15/2024 DiscontinuedStart: 86-60-3836NGSFKETRX, HONEY, 100 % pste APPLY A THIN LAYER TWICE DAILY 0 12/01/2022 ActiveComment on above:APPLY A THIN LAYER TWICE DAILYmetFORMIN hydrochloride 1000 mg oral tablet (20 sources)BiguanideStart: 12-26-2017 End: 81-26-4048dczy 1 tablet by mouth twice dailyMetformin 1,000 mg Tablet Discontinued 1000 MG PO Twice daily December 26, 2017 1:00am July 22, 2024 1:23pm End: 24-29-1218sqvc 1000 mg by mouth once dailymetformin HCl (METFORMIN ORAL) Take 1,000 mg by mouth once daily. 07/15/2024 DiscontinuedmetFORMIN HCl Active Comment on above:Take 1,000 mg by mouth once daily.Omeprazole Magnesium (Prilosec Otc) 20 mg Tablet,Delayed Release (Dr/Ec) (17 sources)Start: 12-26-2017 End: 26-20-8762ztpc 1 tablet by mouth once dailyOmeprazole Magnesium (Prilosec Otc) 20 mg Tablet,Delayed Release (Dr/Ec) Discontinued 20 MG PO Daily December 26, 2017 12:00am May 11, 2024 10:53amStart: 12-26-2017 End: 56-93-0372xiqd 1 tablet by mouth once dailyOmeprazole Magnesium (Prilosec Otc) 20 mg Tablet,Delayed Release (Dr/Ec) Discontinued 20 MG PO Daily December 26, 2017 1:00am May 11, 2024 11:53amStart: 95-47-4002jbtn 1 tablet by mouth once dailyOmeprazole Magnesium (Prilosec Otc) 20 mg Tablet,Delayed Release (Dr/Ec) Active 20 MG PO Daily December 26, 2017 1:00amStart: 70-73-9509xidw 1 tablet by mouth once dailyOmeprazole Magnesium (Prilosec Otc) 20 mg Tablet,Delayed Release (Dr/Ec) Active 20 MG PO Daily December 26, 2017 12:00am predniSONE 20 mg oral tablet (2 sources)Start: 10-20-2023 End: 77-17-9139flvb 2 tablets by mouth once daily, then [...] valgus; Translations: [Hallux valgus (acquired), right foot]Onset: 259968-65-3920ShmiiylLjekr and unspecified renal failure (20 sources)Injury of kidney; Translations: [Acute kidney failure, unspecified] Onset: 472624-76-8311YzgxsikpJnjis bronchitis (20 sources)Acute bronchitis; Translations: [Acute bronchitis, unspecified] 41-28-2816UttpfcstMjnaw cerebrovascular disease (2 sources)Lacunar infarction; Translations: [Other cerebral infarction due to occlusion or stenosis of small artery]35-03-3288JutrbflCfkv and rectal conditions (14 sources)Rectal oiotl24-82-8833UyxshwbwMmasvvw kidney disease (20 sources)Chronic kidney disease stage 3; Translations: [Stage 3 chronic kidney disease]Onset: 951281-13-9163YksdeatOwxjhhl kidney disease (2 sources)Chronic kidney disease; Translations: [Chronic kidney disease, stage 3 unspecified]Onset: 91-68-1577Bmupteqiksf and hemorrhagic disorders (4 sources)Thrombocytopenic disorder; Translations: [Thrombocytopenia, unspecified]Onset: 890828-23-7063GfccosoTelrebjiph and other anemia (2 sources)Anemia due to chronic blood loss; Translations: [Iron deficiency anemia secondary to blood loss (chronic)]Onset: 20-71-8595LklmgmzYicdrocnkz and other anemia (17 sources)Anemia due to blood mdas73-44-5257BbmsejgMrpzmbccoy and other anemia (20 sources)Iron deficiency anemia due to blood loss; Translations: [Iron deficiency anemia secondary to blood loss (chronic)]Onset: 46-86-8811Fvsuqly Deficiency and other anemia (4 sources)Iron deficiency anemia secondary to blood loss (chronic); Translations: [IRON DEFIC ANEMIA SEC BLD LOSS CHRN]Onset: 60-45-5888Sekejjh Deficiency and other anemia (1 source)Anemia; Translations: [Anemia in stage 3a chronic kidney disease (HCC)]71-38-8327XemzpqbZjpkcazdrz and other anemia (2 sources)Anemia in chronic kidney disease; Translations: [Anemia in chronic kidney disease]Onset: 45-64-2338WznbumdYxibuhicuh and other anemia (20 sources)Anemia; Translations: [Anemia, unspecified]Onset: 01-20-2022 44-49-4451XdjvsrdzMpiuzyjgxt and other anemia (6 sources)Iron deficiency anemia secondary to inadequate dietary iron intake; Translations: [Other iron deficiency anemias]EpisodicDeficiency and other anemia (6 sources)Iron deficiency anemia; Translations: [Iron deficiency anemia, unspecified]88-32-4897QabqukvzFlrdtkiwwn and other anemia (1 source)Deficiency and other anemia; Translations: [Anemia in stage 3a chronic kidney disease (HCC)]Onset: 68-36-0670Lmpzqodx mellitus with complications (20 sources)Type 2 diabetes mellitus with diabetic chronic kidney disease; Translations: [Type 2 diabetes mellitus]Onset: 63-28-6731HydvkloWtmzahja mellitus without complication (20 sources)Type 2 diabetes mellitus without complication; Translations: [Type 2 diabetes mellitus without complications]Onset: 50-87-7316GmjfmviPhqzwscqd of lipid metabolism (20 sources)Hyperlipidemia; Translations: [Hyperlipidemia, unspecified]Onset: 742126-30-4213IfqyhipNkboyqbmzlmysl and diverticulitis (14 sources)Diverticular rtfhcys21-52-5890YkahmkeZkiyuirhua disorders (20 sources)Gastroesophageal reflux disease without esophagitis; Translations: [Gastro-esophageal reflux disease without esophagitis]Onset: 98-49-3429Yhtuouy Essential hypertension (20 sources)Essential hypertension; Translations: [Essential (primary) hypertension]Onset: 743285-88-2912WvsbhiqNxiqoxtewci (14 sources)Vqifblpgcrh00-92-3527PocarbowLhfwtcelv (1 source)Nonalcoholic steatohepatitis; Translations: [Nonalcoholic steatohepatitis (ALFONSO)]Onset: 42-20-8652JjnirxeMosujoghhdoe with complications and secondary hypertension (20 sources)Hypertensive urgency ; Translations: [Hypertensive urgency]Onset: 909892-28-2564SleuskmUvnm disorders (13 sources)Depressive disorder; Translations: [Depressive disorder]Onset: 105400-98-0239MxsetoyIcoptx and vomiting (14 sources)Nausea; Translations: [Nausea]Onset: 10-23-1127RovpmzgaVtnhfvlceep deficiencies (14 sources)Vitamin B deficiency; Translations: [Deficiency of other specified B group vitamins]Onset: 23-09-9694JzpgvwooImasx and unspecified benign neoplasm (14 sources)Gastric -03-1505KfbicwubYtksq and unspecified benign neoplasm (13 sources)History of polyp of rsqoi26-12-1976VzjoqcxhHhhbk diseases of kidney and ureters (19 sources)Secondary hyperparathyroidism; Translations: [Secondary hyperparathyroidism of renal origin]35-06-2550GnnfwafIkzto diseases of kidney and ureters (14 sources)Secondary hyperparathyroidism of renal origin; Translations: [Secondary hyperparathyroidism (of renal origin)]Onset: 148064-37-7992 ChronicOther ear and sense organ disorders (17 sources)Mixed conductive and sensorineural hearing loss, bilateral; Translations: [Mixed conductive and sensorineural hearing loss, bilateral]Onset: 007726-48-1687ThxnsjqLltmb gastrointestinal disorders (2 sources)H/O: gastrointestinal disease; Translations: [Personal history of other diseases of the digestive system]Onset: 93-19-3841XquitlzkTujvk hereditary and degenerative nervous system conditions (20 sources)Restless legs; Translations: [Restless legs syndrome]Onset: 527937-69-3763EqugfjqIfjof hereditary and degenerative nervous system conditions (7 sources)Restless legs syndrome; Translations: [Restless legs syndrome (RLS)] ChronicOther inflammatory condition of skin (1 source)Pruritus of skin; Translations: [Pruritus, unspecified]Onset: 26-75-3390FkkksxasRpueb inflammatory condition of skin (5 sources)Wtzsdkk64-37-3027ItbrswcwLmnzx liver diseases (13 sources)Steatosis of liver; Translations: [Fatty (change of) liver, not elsewhere classified]Onset: 89-49-9140VfchvkqAvltw liver diseases (10 sources)Hepatic fibrosis; Translations: [Hepatic fibrosis, unspecified] Onset: 87-38-3415HghecucCnwqs liver diseases (1 source)Fatty (change of) liver, not elsewhere classified; Translations: [Fatty (change of) liver, not elsewhere classified]Onset: 88-19-9586ZbepbmgAvudn liver diseases (1 source)Enzyme level - finding; Translations: [Abnormal levels of other serum enzymes]Onset: 35-84-3050ErohrfguAlzug liver diseases (13 sources)Alkaline phosphatase vofoea82-40-0514GkifwptsOstcm nervous system disorders (20 sources)Polyneuropathy; Translations: [Polyneuropathy, unspecified]Onset: 126977-26-9120PzxmqbgYrkzb nervous system disorders (13 sources)Neuropathy of lower limb; Translations: [Unspecified mononeuropathy of unspecified lower limb]Onset: 563942-63-7513IojjlbxRrlve nervous system disorders (13 sources)Disorder of autonomic nervous system; Translations: [Disorder of the autonomic nervous system, unspecified]Onset: 608954-69-9612HcoduxlHmlrh nervous system disorders (13 sources)Peripheral nerve disease ; Translations: [Polyneuropathy, unspecified]Onset: 337037-91-3456XxctfvsVersf nervous system disorders (17 sources)Bilateral carpal tunnel syndrome; Translations: [Carpal tunnel syndrome, bilateral upper limbs]Onset: 839516-46-4221TijxbqoJrkzb nervous system disorders (15 sources)Carpal tunnel syndrome of right wrist; Translations: [Carpal tunnel syndrome, right upper limb]Onset: 857730-84-3380CvuppzcSapbu nervous system disorders (20 sources)Slurred speech; Translations: [Slurred speech]87-07-3357Qkooqmhf Other nervous system disorders (20 sources)Paresthesia of hand ; Translations: [Paresthesia of skin]03-11-2023 EpisodicOther nervous system disorders (2 sources)Paresthesia of skin; Translations: [Disturbance of skin sensation] 06-26-0300MyubrwhuAusjy nervous system disorders (5 sources)Slurred speech; Translations: [Other speech disturbance]03-13-2023 EpisodicOther non-traumatic joint disorders (13 sources)Arthropathy; Translations: [Arthropathy, unspecified]Onset: 932588-80-8665OvupwwjSkifw non-traumatic joint disorders (1 source)Pain in right shoulder; Translations: [Pain in right shoulder]Onset: 62-37-3310RkywmgoeCxuko nutritional; endocrine; and metabolic disorders (4 sources)Obese class II; Translations: [Body mass index (BMI) 36.0-36.9, adult]ChronicOther nutritional; endocrine; and metabolic disorders (2 sources)Body mass index 40+ - severely obese; Translations: [Body mass index (BMI) 45.0-49.9, adult]ChronicOther nutritional; endocrine; and metabolic disorders (2 sources)Body mass index (BMI) 36.0-36.9, adultChronicOther nutritional; endocrine; and metabolic disorders (20 sources)Hypomagnesemia; Translations: [Hypomagnesemia]67-78-4405EuipykbXdwqy nutritional; endocrine; and metabolic disorders (10 sources)Metabolic syndrome X; Translations: [Metabolic syndrome]Onset: 50-36-4654MkoxohbQjepi nutritional; endocrine; and metabolic disorders (2 sources)Obesity; Translations: [Other obesity due to excess calories]Onset: 98-10-5137WpghzsyOqxop nutritional; endocrine; and metabolic disorders (6 sources)Obesity caused by energy wxzwxcavj32-84-0254LoafvdoTrkjc nutritional; endocrine; and metabolic disorders (9 sources)Hypomagnesemia; Translations: [Disorders of magnesium metabolism] Onset: 740481-03-2559ZmiujtuWfaky nutritional; endocrine; and metabolic disorders (4 sources)Abnormal weight loss; Translations: [Abnormal weight loss]Onset: 18-50-1754BmldqqrrBjewy nutritional; endocrine; and metabolic disorders (6 sources)Weight hvgy88-97-0037TshpkffdRwdkd upper respiratory disease (2 sources)Nasal congestionEpisodicPulmonary heart disease (1 source)Pulmonary hypertension, unspecified; Translations: [PULMONARY HYPERTENSION UNSPECIFIED]Onset: 46-69-7469FquouwbLzjskrga codes; unclassified (12 sources)Obstructive sleep apnea syndrome; Translations: [Obstructive sleep apnea (adult) (pediatric)]53-67-0312JgxrhaaGszztusm codes; unclassified (7 sources)Obstructive sleep apnea (adult) (pediatric); Translations: [Obstructive sleep apnea (adult)(pediatric)]ChronicResidual codes; unclassified (10 sources)Insomnia; Translations: [Insomnia, unspecified]15-42-7498Oqbmkigh Residual codes; unclassified (5 sources)Insomnia, unspecified; Translations: [Insomnia, unspecified] 52-30-3716RktmgmsuOlhgqmmofpo; intervertebral disc disorders; other back problems (6 sources)Other spondylosis with radiculopathy, lumbar region; Translations: [Degeneration of lumbar intervertebral disc]Onset: 67-34-2775KlmjfaeRpffqqq (20 sources)Syncope; Translations: [Syncope and collapse]Onset: 05-14-2023 31-91-2399ZwlzgvnyMlteuvjic cerebral ischemia (18 sources)Transient cerebral ischemia; Translations: [Transient cerebral ischemic attack, unspecified]Onset: 396862-81-2527KhkihteNyqvntdwpxsu (1 source)CHRN KIDNEY DISEASE STG 3 UNSP; Translations: [CHRN KIDNEY DISEASE STG 3 UNSP]Onset: 41-03-4009Qgvitmrluidk (1 source)Other intervertebral disc degeneration, lumbar region without mention of lumbar back pain or lower extremity pain; Translations: [Other intervertebral disc degeneration, lumbar region without mentionof lumbar back pain or lower extremity pain]Onset: 44-25-9063Zifwque tract infections (20 sources)Acute urinary tract infection; Translations: [Urinary tract infection, site not specified]22-24-4552BgjrsdkmXahyj infection (20 sources)Acute viral disease; Translations: [Viral infection, unspecified] 64-70-4153Unnhrbac Past or Other Problems Problem ClassificationProblemDateDocumented DateEpisodic/ChronicCardiac dysrhythmias (20 sources)Palpitations; Translations: [Palpitations]Onset: 08-16-2024 10-84-9279YqxwaxlvNkxlwnhrsw and other anemia (1 source)Anemia, unspecified; Translations: [Anemia, unspecified type]Onset: 36-30-6851HufzjosaQajtirhasl and other anemia (1 source)Iron deficiency anemia, unspecified; Translations: [Iron deficiency anemia, unspecified iron deficiency anemia type]Onset: 07-76-2165Xluhbxky Diabetes mellitus without complication (1 source)Impaired fasting glucose; Translations: [IMPAIRED FASTING GLUCOSE] Onset: 37-30-9177HhafwudhNvmfi aftercare (1 source)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; Translations: [OTH SENIOR CARE CURRENT DRUG THERAPY]Onset: 79-68-8699CxllwlwdAzpby lower respiratory disease (4 sources)Shortness of breath; Translations: [SHORTNESS OF BREATH]Onset: 01-01-7522XvoxghwuSpuhg nervous system disorders (13 sources)Paresthesia; Translations: [Paresthesia of skin]Onset: 03-28-2024 08-31-5441WwrxpfliFcvnf nervous system disorders (13 sources)Impairment of balance; Translations: [Other abnormalities of gait and mobility]Onset: 576379-98-4998QlrjhplxWhcty non-epithelial cancer of skin (13 sources)History of malignant neoplasm of skin; Translations: [Personal history of other malignant neoplasm of skin]Onset: 052071-65-4054Cartjlek Other screening for suspected conditions (not mental disorders or infectious disease) (6 sources)Abnormal level of blood mineral; Translations: [Abnormal level of blood mineral]Onset: 63-68-2012WpdqxcvxTqemce media and related conditions (13 sources)Bilateral tympanic membrane central perforation; Translations: [Central perforation of tympanic membrane, bilateral]Onset: EpisodicSpondylosis; intervertebral disc disorders; other back problems (1 source)Spinal stenosis, lumbar region with neurogenic claudication; Translations: [Spinal stenosis, lumbarregion with neurogenic claudication]Onset: 67-46-5481CljnwuowDfvrsrpb veins of lower extremity (13 sources)Venous varices; Translations: [Asymptomatic varicose veins of unspecified lower extremity]Onset: 609783-72-5767Rtgkpuza Results Test NameValueInterpretationReference RangeFacilityCBC W Auto Differential panel (Bld)on 12-80-9105Flewmfmla (Bld) [#/Vol]10*3/uLNormal<0.11C[facility] on above:Order Comment: Specimen Type: BLOOD SPECIMENOrdering Facility: [facility] Address:[address] [place], [place] [address]Performed By: #### 35545-8, 37649-6 ####[facility] LABCLIA [id number] [place], [place] [address]Xihbfswpz/100 WBC (Bld)0.3 %NormalMcKitrick Hospital on above:Order Comment: Specimen Type: BLOOD SPECIMENOrdering Facility: [facility] Address:[address] [place], [place] [address]Performed By: #### 62465-4, 50297-5 ####[facility] LABCLIA [id number] [place], [place] [address]Qeeebitmukdx cell count method Nom (Bld)AutoNormal [facility] on above:Order Comment: Specimen Type: BLOOD SPECIMENOrdering Facility: [facility] Address:[address] [place], [place] [address]Performed By: #### 75637-5, 41271-9 ####[facility] LABCLIA [id number] [place] [address] Eosinophils (Bld) [#/Vol]0.18 10*3/uLNormal<0.46[facility] Comment on above:Order Comment: Specimen Type: BLOOD SPECIMENOrdering Facility: [facility] Address:[address] [place] [address] Performed By: #### 42490-8, 21191-0 ####[facility] LABIA [id number] [place], [place] [address]Kbtxbjgnykv/100 WBC (Bld)3.1 %NormalMcKitrick Hospital on above:Order Comment: Specimen Type: BLOOD SPECIMENOrdering Facility: [facility] Address:[address] [place], [place] [address]Performed By: #### 37757-4, 49607-0 ####[facility] LABCLIA [id number] [place], [place] [address]Vlmhowzjdgi distribution width (RBC) [Ratio]15.9 %High 11.5-15.0[facility] on above:Order Comment: Specimen Type: BLOOD SPECIMENOrdering Facility: [facility] Address:[address] [place], [place] [address]Performed By: #### 40801-9, 94366-3 ####[facility] LABIA [id number] [place], [place] [address]Kmslsoithw (Bld) [Volume fraction]32.1 %Low36.0-46.0 [facility] on above:Order Comment: Specimen Type: BLOOD SPECIMENOrdering Facility: [facility] Address:[address] [place], [place] [address]Performed By: #### 49705-2, 11655-1 ####[facility] LABCLIA [id number] [place] [address] Hemoglobin (Bld) [Mass/Vol]10.6 g/dLLow11.5-15.5CThe [facility] Comment on above:Order Comment: Specimen Type: BLOOD SPECIMENOrdering Facility: [facility] Address:[address] [place] [address] Performed By: #### 11584-1, 60081-4 ####[facility] LABCLIA [id number] [place], [place] [address]Yiiakgpz granulocytes (Bld) [#/Vol]10*3/uLNormal<0.10[facility]burgComment on above:Order Comment: Specimen Type: BLOOD SPECIMENOrdering Facility: [facility] Address:[address] [place], [place] [address]Performed By: #### 16925- 8, 08856-8 ####[facility] LABCLIA [id number] [place], [place] [address]Lxlhxiee granulocytes/100 WBC (Bld)0.3 %Normal [facility]burgComment on above:Order Comment: Specimen Type: BLOOD SPECIMENOrdering Facility: [facility] Address:[address] [place], [place] [address]Performed By: #### 54994-5, 71997-4 ####[facility] LABCLIA [id number] [place] [address] Lymphocytes (Bld) [#/Vol]1.39 10*3/uLNormal1.00-4.00[facility] Comment on above:Order Comment: Specimen Type: BLOOD SPECIMENOrdering Facility: [facility] Address:[address] [place] [address] Performed By: #### 05456-4, 18666-6 ####[facility] LABCLIA [id number] [place], [place] [address]Pacptlyddzy/100 WBC (Bld)23.8 %NormalMcKitrick Hospital on above:Order Comment: Specimen Type: BLOOD SPECIMENOrdering Facility: [facility] Address:[address] [place], [place] [address]Performed By: #### 78023-8, 35893-8 ####[facility] LABCLIA [id number] [place], [place] [address]AKO (RBC) [Entitic mass]29.2 fqOziilq66.0-34.0[facility] on above:Order Comment: Specimen Type: BLOOD SPECIMENOrdering Facility: [facility] Address:[address] [place], [place] [address]Performed By: #### 69474-3, 51189-3 ####[facility] LABCLIA [id number] [place], [place] [address]LMMP (RBC) [Mass/Vol]33.0 g/hEBwmbzq49.5-36.0[facility] on above:Order Comment: Specimen Type: BLOOD SPECIMENOrdering Facility: [facility] Address:[address] [place], [place] [address]Performed By: #### 95200-8, 50733-4 ####[facility] LABCLIA [id number] [place], [place] [address]JUG (RBC) [Entitic vol]88.4 fLNormal 80.0-100.0[facility] on above:Order Comment: Specimen Type: BLOOD SPECIMENOrdering Facility: [facility] Address:[address] [place], [place] [address]Performed By: #### 31376-9, 45698-1 ####[facility] LABCLIA [id number] [place], [place] [address]Jnvbifdwi (Bld) [#/Vol]0.35 10*3/uLNormal<0.87[facility] on above:Order Comment: Specimen Type: BLOOD SPECIMENOrdering Facility: [facility] Address:[address] [place], [place] [address]Performed By: #### 37548-7, 94331-5 ####[facility] LABCLIA [id number] [place] [address] Monocytes/100 WBC (Bld)6.0 %NormalMcKitrick Hospital on above: Order Comment: Specimen Type: BLOOD SPECIMENOrdering Facility: [facility] Address:[address] [place], [place] [address]Performed By: #### 80987- 8, 25019-9 ####[facility] LABCLIA [id number] [place], [place] [address]Yrtgekahofg (Bld) [#/Vol]3.89 10*3/uLNormal 1.45-7.50[facility] on above:Order Comment: Specimen Type: BLOOD SPECIMENOrdering Facility: [facility] Address:[address] [place], [place] [address]Performed By: #### 14893-8, 01864-0 ####[facility] LABCLIA [id number] [place], [place] [address]Dunayuuiqsa/100 WBC (Bld)66.5 %NormalMcKitrick Hospital on above:Order Comment: Specimen Type: BLOOD SPECIMENOrdering Facility: [facility] Address:[address] [place], [place] [address]Performed By: #### 60920-8, 37704-8 ####[facility] LABIA [id number] [place], [place] [address]Naubpckuj RBC (Bld) [#/Vol]10*3/uLNormal<0.01[facility] on above:Order Comment: Specimen Type: BLOOD SPECIMENOrdering Facility: [facility] Address:[address] [place], [place] [address]Performed By: #### 70699- 8, 61030-1 ####[facility] LABCLIA [id number] [place], [place] [address]Pdzgwfncr RBC/100 WBC (Bld) [Ratio]0.0 /100 WBC NormalMcKitrick Hospital on above:Order Comment: Specimen Type: BLOOD SPECIMENOrdering Facility: [facility] Address:[address] [place], [place] [address]Performed By: #### 57489-0, 23593-6 ####[facility] LABCLIA [id number] [place], [place] [address]Ratcqnxe mean volume (Bld) [Entitic vol]9.2 fLNormal9.0-12.7C[facility] on above:Order Comment: Specimen Type: BLOOD SPECIMENOrdering Facility: [facility] Address:[address] [place], [place] [address]Performed By: #### 12037-2, 16578-2 ####[facility] LABCLIA [id number] [place] [address] Platelets (Bld) [#/Vol]126 10*3/zSLmz207-183YhrjgrdznMcKitrick Hospital on above:Order Comment: Specimen Type: BLOOD SPECIMENOrdering Facility: [facility] Address:[address] [place], [place] [address]Performed By: #### 84568-6, 28238-5 ####[facility] LABCLIA [id number] [place], [place] [address]TIB (Bld) [#/Vol]3.63 10*6/uLLow3.90-5.20 [facility] on above:Order Comment: Specimen Type: BLOOD SPECIMENOrdering Facility: [facility] Address:[address] [place], [place] [address]Performed By: #### 52984-2, 14174-4 ####[facility] LABCLIA [id number] [place], [place] [address]APZ (Bld) [#/Vol]5.85 10*3/uLNormal3.70-11.00[facility] on above:Order Comment: Specimen Type: BLOOD SPECIMENOrdering Facility: [facility] Address:[address] [place], [place] [address], [place] [address]Mscdfcusc By: #### 30577-4, 24709-9 ####[facility] CENTERZANDRA [facility] LABCLIA [id number] [place], [place] [address]RIJVAKcv 38-91-3190GMNVAHMedip ([place]) Office ([place]) ANH TEJEDA ([id number]) 1950 F Date Time Provider Department 08/07/25 10:30 AM DAKSHA BRIDGES During your visit today, we recorded the following information about you: Temperature Pulse Respiration Blood pressure 97.7 degrees 79/minute 16/minute 121/59 Weight 100.9 kg Daksha Bridges PA-C 08/07/2025 10:50 AM Signed Hematology Progress Note PATIENT NAME: Anh Tejeda CLINIC NO.: [id number] ATTENDING PHYSICIAN: Henry Walker MD DATE OF [...] 6.4 04/18/2025 6.2 Albumin (more content not included)...NormalK[facility] Comprehensive metabolic 2000 panelon 17-21-4929Nojsylo [Mass/Vol]3.9 g/dLNormal 3.9-4.9CThe [facility] CenterComaspirus [facility]tonagon [facility] on above:Order Comment: Specimen Type: BLOOD SPECIMEN [facility] Address: [address] [place], [place] [address]Performed By: #### 96143-5 #### [facility] CLIA [id number] [address] [place], [place] [address]CFN [Catalytic activity/Vol]155 U/FUbis75-586XqmdtwitnMcKitrick Hospital on above:Order Comment: Specimen Type: BLOOD SPECIMEN [facility] Address: [address] [place], [place] [address]Performed By: #### 29573-9 #### [facility] CLIA [id number] [address] [place], [place] [address]FUL [Catalytic activity/Vol]12 U/LNormal7-38[facility] on above:Order Comment: Specimen Type: BLOOD SPECIMEN [facility] Address: [address] [place], [place] [address]Performed By: #### 42891-9 #### [facility] CLIA [id number] [address] [place], [place] [address]Ooucw gap [Moles/Vol]11 mmol/LNormal8-15[facility] on above:Order Comment: Specimen Type: BLOOD SPECIMEN [facility] Address: [address] [place], [place] [address]Performed By: #### 87626-7 #### [facility] CLIA [id number] [address] [place], [place] [address]SIX [Catalytic activity/Vol]13 U/SFduuus50-93YnxhzwmciMcKitrick Hospital on above:Order Comment: Specimen Type: BLOOD SPECIMEN Ordering Facility: [facility] Address: [address] [place], [place] [address]Performed By: #### 30400-1 #### [facility] CLIA [id number] [address] [place], [place] [address]Xdqskfhvu [Mass/Vol]0.6 mg/dLNormal0.2-1.3CUniversity [facility]als [facility] on above:Order Comment: Specimen Type: BLOOD SPECIMEN Ordering Facility: [facility] Address: [address] [place], [place] [address]Performed By: #### 43421-4 #### [facility] CLIA [id number] [address] [place] [address] 22292Yedxwpc [Mass/Vol]8.7 mg/dLNormal8.5-10.2CUniversity [facility] on above:Order Comment: Specimen Type: BLOOD SPECIMEN Ordering Facility: [facility] Address: [address] [place], [place] [address]Performed By: #### 82511-6 #### [facility] CLIA [id number] [address] [place] [address] 24038Sffyyfiz [Moles/Vol]102 mmol/MAcisic04-243FrmiaqnleMcKitrick Hospital on above:Order Comment: Specimen Type: BLOOD SPECIMEN Ordering Facility: [facility] Address: [address] [place], [place] [address]Performed By: #### 89228-6 #### [facility] CLIA [id number] [address] [place] [address] 86058XJ5 [Moles/Vol]27 mmol/QKrxflu80-77JrzmvutfnKettering Health Miamisburg Comment on above:Order Comment: Specimen Type: BLOOD SPECIMEN Ordering Facility: [facility] Address: [address] [place], [place] [address]Performed By: #### 76433-4 #### [facility] CLIA [id number] [address] [place] [address] 05122Sflnbkfrrj [Mass/Vol]1.33 mg/dLHigh0.58-0.96[facility] on above:Order Comment: Specimen Type: BLOOD SPECIMEN Ordering Facility: [facility] Address: [facility] [place], [place] [address]Performed By: #### 05426-8 #### [facility] CLIA [id number] [address] [place] [address] 69524yMUEyy SerPlBld CKD-EPI 001086 mL/min/1.73m???Low>=60K[facility] MiamisburgComment on above:Order Comment: Specimen Type: BLOOD SPECIMEN Ordering Facility: [facility] Address: [address] [place] [address]Ispfch Comment: Estimated Glomerular Filtration Rate (eGFR) is [...] not accurately reflect actual GFR.Performed By: #### 60927-7 #### [facility] CLIA [id number] [address] [place] [address] 67934Sjjwdmn [Mass/Vol]208 mg/jRKyxx18-82JsxxpdwhkKettering Health [facility]amisburg Comment on above:Order Comment: Specimen Type: BLOOD SPECIMEN Ordering Facility: [facility] Address: [address] [place] [address]Lghake Comment: The [place] Diabetes Association (ADA) provides guidance for cutoff [...] Medical Care in Diabetes 2016, [place] Diabetes Association. Diabetes Care. 2016.39(Suppl 1).Performed By: #### 95386-5 #### [facility] CLIA [id number] [address] [place] [address] 88091Pfgijodaw [Moles/Vol]4.4 mmol/LNormal3.7-5.1CUniversity [facility] on above:Order Comment: Specimen Type: BLOOD SPECIMEN Ordering Facility: [facility] Address: [address] [place], [place] [address]Performed By: #### 66405-8 #### [facility] CLIA [id number] [address] [place], [place] [address]Owptdgq [Mass/Vol]6.1 g/dLLow6.3-8.0[facility] Comment on above:Order Comment: Specimen Type: BLOOD SPECIMEN Ordering Facility: [facility] Address: [address] [place], [place] [address]Performed By: #### 89005-8 #### [facility] CLIA [id number] [address] [place] [address] 10740Tvewdv [Moles/Vol]140 mmol/YNiqaln377-788RnhhulonkKettering Health MiamisburgComment on above:Order Comment: Specimen Type: BLOOD SPECIMEN Ordering Facility: [facility] Address: [address] [place], [place] [address]Performed By: #### 02699-8 #### [facility] CLIA [id number] [address] [place] [address] 38955Kjaf nitrogen [Mass/Vol]34 mg/dLHigh7-21K[facility] Health MiamisburgComment on above:Order Comment: Specimen Type: BLOOD SPECIMEN Ordering Facility: [facility] Address: [address] [place], [place] [address]Performed By: #### 28803-5 #### [facility] CLIA [id number] [address] [place] [address] 18669IHA SerPl-aCncon 44-73-8698Kbpozujfmuwgmy (EPO) Qn30.0 mIU/mL High2.6-18.5CThe University of Toledo Medical CenterComment on above:Order Comment: Specimen Type: BLOOD SPECIMENOrdering Facility: [facility] Address:[address] [place], [place] [address]Performed By: #### 06641-4 ####[facility]IA [id number] [facility] [id number] DUR[address] STREETFerritin SerPl-mCncon 54-18-1546Nmwfwxqh [Mass/Vol]353.0 ng/eDDffj66.7-205.1CUniversity [facility] on above:Order Comment: Specimen Type: BLOOD SPECIMEN Ordering Facility: [facility] Address: [address] [place], [place] [address]Performed By: #### 17718-6, 6-4 #### [facility] CLIA [id number] [address] [place] [address] STATES OF AMERICAFolate SerPl-mCncon 03-98-6583Ngxpww [Mass/Vol]ng/mLNormal>4.7CUniversity [facility] on above:Order Comment: Specimen Type: BLOOD SPECIMEN Ordering Facility: [facility] Address: [address] [place], [place] [address]Result Comment: A result of > 20 ng/mL is not necessarily indicative of a pathologic or treatable condition: it reflects a limitation of the test methodology. Assay reference range: 4.8 to 24.2 ng/mL. Suitable for detection of folate deficiency. Reference: Folate III (Folate III) [package insert V 1.0 Chinese]. [facility], [place], [place]: September 2015.Performed By: #### 26754-4, 2275-4 #### [facility] CLIA [id number] [address] [place] [address] STATES OF AMERICAIMMUNOFIXATION SCREEN, SERUM on 74-57-6845DYU RESULTNo M protein is identified.NormalNo M protein is identified.[facility] on above:Order Comment: Specimen Type: BLOOD SPECIMEN Ordering Facility: [facility] Address: [address] [place], [place] [address]Performed By: #### 65022-2, 2275-4 #### [facility] CLIA [id number] [address] [place] [address] STATES OF AMERICASTAFF REVIEW (MPA)Reviewed by Nimco Meredith M.D.[facility] on above:Order Comment: Specimen Type: BLOOD SPECIMEN Ordering Facility: [facility] Address: [address] [place], [place] [address]Performed By: #### 86641-9, 6-4 #### [facility] CLIA [id number] [address] [place] [address] [place] OF AMERICAIMMUNOGLOBULINS,IGG,IGA,IGM on 09-22-3624NjR [Mass/Vol]45 mg/oXOlp93-601IpahxnkicMcKitrick Hospital on above:Order Comment: Specimen Type: BLOOD SPECIMENOrdering Facility: [facility] Address:[address] [place], [place] [address]Performed By: #### SERIMM ####[facility] LAB[facility]IA [id number] [place] [address] [place] OF AMERICAIgG [Mass/Vol]657 mg/dL Frr322-6249QlkejcjfnMcKitrick Hospital on above:Order Comment: Specimen Type: BLOOD SPECIMENOrdering Facility: [facility] Address:[address] [place], [place] [address]Performed By: #### SERIMM ####[facility] [id number] [place] [address] [place] OF AMERICAIgM [Mass/Vol]33 mg/nOCwx00-270RbsgzhyzmMcKitrick Hospital on above:Order Comment: Specimen Type: BLOOD SPECIMENOrdering Facility: [facility] Address:[address] [place], [place] [address]Performed By: #### SERIMM ####[facility] LABCLIA [id number] [place] [address] [place] RASHMI [employer] binding capacity panelon 78-61-7348Qfsj [Mass/Vol]67 ug/dLNormal 41-186[facility] on above:Order Comment: Specimen Type: BLOOD SPECIMEN Ordering Facility: [facility] Address: [address] [place], [place] [address]Performed By: #### 68351-3, 2275-4 #### [facility] CLIA [id number] [address] [place] [address] [place] OF AMERICAIron binding capacity [Mass/Vol]295 ug/rXDussse071-874XgoulttfaMcKitrick Hospital on above:Order Comment: Specimen Type: BLOOD SPECIMEN Ordering Facility: [facility] Address: [address] [place], [place] [address]Performed By: #### 49283-0, 2276-4 #### [facility] CLIA [id number] [address] [place] [address] [place] OF AMERICAIron/TIBC [Molar ratio]22.7 %Tysvup52.0-57.0[facility] on above:Order Comment: Specimen Type: BLOOD SPECIMEN Ordering Facility: [facility] Address: [address] [place], [place] [address]Performed By: #### 71618-8, 2275-4 #### [facility] CLIA [id number] [address] [place] [address] [place] OF AMERICAKAPPA/SAMANIEGO,FREE,SERon 21-37-4481Ieadfpqdktuyir light chains.kappa.free (S) [Mass/Vol]28.9 mg/LHigh 3.3-19.4CUniversity [facility] on above:Order Comment: Specimen Type: BLOOD SPECIMENOrdering Facility: [facility] Address:[address] [place], [place] [address]Result Comment: Rarely, increased serum free light chains levels may not be detected or accurately quantified due to prozone phenomenon or in high viscosity samples using this immunoturbidimetric assay. Correlation with other laboratory results and clinical findings is recommended. The [place] Free Light Chain was performed using the Binding Site Optilite immunoturbidimetric method. Result obtained with different assay methods or kits cannot be used interchangeably.Performed By: #### KLFRS ####[facility] LAB[facility]IA [id number] [place] [address] [place] OF AMERICAImmunoglobulin light chains.kappa/Immunoglobulin light chains.lambda (S) [Mass ratio]1.71Unxpvw1.26-1.65[facility] Comment on above:Order Comment: Specimen Type: BLOOD SPECIMENOrdering Facility: [facility] Address:[address] [place] [address] Performed By: #### KLFRS ####[facility] LABCLIA [id number] [place] [address] [place] OF AMERICAImmunoglobulin light chains.lambda.free [Mass/Vol]27.7 mg/LHigh5.7-26.3CUniversity [facility] on above:Order Comment: Specimen Type: BLOOD SPECIMENOrdering Facility: [facility] Address:[address] [place], [place] [address]Result Comment: Rarely, increased serum free light chains [...] cannot be used interchangeably.Performed By: #### KLFRS ####[facility] [id number] [place] [address] [place] OF AMERICAPROTEIN ELECTROPHORESIS SERUM (P)on 67-54-3264Snymwdf [Mass/Vol]3.48 g/dLNormal3.43-5.41[facility] Health MiamisburgComment on above: Order Comment: Specimen Type: BLOOD SPECIMENOrdering Facility: [facility] Address:[address] [place], [place] [address]Performed By: #### [id number] ####[facility] [id number] [place] [id number] [place] OF AMERICAAlpha 1 globulin Elph [Mass/Vol]0.35 g/dLNormal0.18-0.43[facility] on above: Order Comment: Specimen Type: BLOOD SPECIMENOrdering Facility: [facility] Address:[address] [place], [place] [address]Performed By: #### [id number] ####[facility] LAB[facility] [id number] [place] [address] [place] AMERICAAlpha 2 globulin Elph [Mass/Vol]0.80 g/dLNormal0.42-0.98[facility] on above: Order Comment: Specimen Type: BLOOD SPECIMENOrdering Facility: [facility] Address:[address] [place], [place] [address]Performed By: #### [id number] ####[facility] LABCLIA [id number] [address] STATES OF AMERICABeta globulin Elph [Mass/Vol]0.56 g/dLLow0.61-1.17[facility] on above:Order Comment: Specimen Type: BLOOD SPECIMENOrdering Facility: [facility] Address:[address] [place], [place] [address]Performed By: #### [id number] ####[facility]IA [id number] [address] STATES [facility]OHANS[facility] STATE HOSPITALGamma globulin Elph [Mass/Vol]0.50 g/dLLow0.53-1.51[facility] on above:Order Comment: Specimen Type: BLOOD SPECIMENOrdering Facility: [facility] Address:[address] [place], [place] [address]Performed By: #### [id number] ####[facility] LABCLIA [id number] [address] STATES OF AMERICAINTERPRETATION COMMENT FOR PROTEIN ELECTROPHORESISHypogammaglobulinemia is present, which can be seen in the setting of monoclonal gammopathy. If clinically indicated, monoclonal protein analysis and serum free light chain analysis are suggested to evaluate further for monoclonal gammopathy.NormalMcKitrick Hospital on above:Order Comment: Specimen Type: BLOOD SPECIMENOrdering Facility: [facility] Address:[address] [place], [place] [address]Performed By: #### [id number] ####[facility] LABCLIA [id number] [place] [address] [place] OF AMERICAM-PROTEIN LOCATION NormalMcKitrick Hospital on above:Order Comment: Specimen Type: BLOOD SPECIMENOrdering Facility: [facility] Address:[address] [place], [place] [address]Result Comment: Not Applicable.Performed By: #### [id number] ####[facility]IA [id number] [place] [address] [place] OF UC HEALTHProtein Fractions [Interp]No definitive M protein is identified on protein electrophoresis.Normal No definitive M protein is identified on protein electrophoresis.[facility] on above:Order Comment: Specimen Type: BLOOD SPECIMENOrdering Facility: [facility] Address:[address] [place], [place] [address]Performed By: #### [id number] ####[facility] [id number] [place] [address] [place] AMERICAProtein.monoclonal Elph [Mass/Vol]0.00 g/dLNormal<=0.00[facility] on above:Order Comment: Specimen Type: BLOOD SPECIMENOrdering Facility: [facility] Address:[address] [place], [place] [address]Performed By: #### [id number] ####[facility]IA [id number] [place] [address] [place] RASHMI SPE STAFF REVIEWReviewed by Nimco Meredith M.D.[facility] Comment on above:Order Comment: Specimen Type: BLOOD SPECIMENOrdering Facility: [facility] Address:[address] [place] [address] Performed By: #### [id number] ####[facility]IA [id number] [place] [id number] [place] RASHMI Prot SerPl-mCncon 37-59-2125Pbattty [Mass/Vol]5.7 g/dLLow6.3-8.0[facility] on above:Order Comment: Specimen Type: BLOOD SPECIMEN Ordering Facility: [facility] Address: [address] [place], [place] [address]Performed By: #### 57958-3, 4 #### [facility] CLIA [id number] [address] [place] [address] [place] OF AMERICARetics #on 08-07-2025 Reticulocytes (Bld) [#/Vol]0.53039 10*3/uLHigh0.018-0.100[facility] on above:Order Comment: Specimen Type: BLOOD SPECIMENOrdering Facility: [facility] Address:[address] [place], [place] [address]Performed By: #### 10864-5, 87624-0 ####[facility] LABCLIA [id number] [place], [place] [address]Faciniqkyokxh (Bld) [#/Vol]on 73-79-6201Iwlwuozqcalqc/100 RBC (Bld)3.1 %High0.4-2.0[facility] on above:Order Comment: Specimen Type: BLOOD SPECIMENOrdering Facility: [facility] Address:[address] [place], [place] [address]Performed By: #### 91661-0, 79024-9 ####[facility] LABCLIA [id number] [place], [place] [address]Ewa B12 SerPl-mCncon 57-89-8627Yqzerzyjl (Vitamin B12) [Mass/Vol]903 pg/rEUfawmf544-4511VvtkeiwdlUniversity Hospitals Conneaut Medical Center on above:Order Comment: Specimen Type: BLOOD SPECIMEN Ordering Facility: [facility] Address: [address] [place], [place] [address]Performed By: #### 05923-5, 4 #### [facility] CLIA [id number] [address] [place] [address] [place] OF AMERICAX-ray reportOrdered By: Sharad Robles on 17-77-7410Mfnbk reportCLEVELAND CLINIC [facility] Main [address] [address] XRay Report Signed Patient: Anh Tejeda MR#: [id number] : 1950 Acct:[id number] Age/Sex: 74 / F ADM Date: 5 [...] Robles M.D. 07/19/2025 10:41 PM Dictation Location: [place] [address] Transcribed By: [facility] 07/19/252240 Dictated By: Sharad Robles DO 07/19/252239 Signed By: 07/19/252240 [facility] Hospitaltudy reportCLEVELAND CLINIC [facility] Main [address] [address] XRay Report Signed Patient: Anh Tejeda MR#: [id number] : 1950 Acct:[id number] Age/Sex: 74 / F ADM Date: 5 [...] Robles M.D. 07/19/2025 10:39 PM Dictation Location: [employer]-20 Transcribed By: [place] 07/19/252238 Dictated By: Sharad Robles DO 07/19/252238 Signed By: 07/19/252238 Med[facility] HospitalXR knee standing BIon 59-14-2920LC knee standing [facility] [place] [address] XRay Report Signed Patient: Anh Tejeda MR#: [id number] : 1950 Acct:[id number] Age/Sex: 74 / F ADM Date: 07/19/25 Loc: XD Room: Type: [facility] Attending Dr: Vinay Matta DO Copies [...] Robles M.D. 07/19/2025 10:41 PM Dictation Location: [employer]-20 Transcribed By: [place] 07/19/252240 Dictated By: Sharad Robles DO 07/19/252239 Signed By: 07/19/252240[facility] Physician GroupXR shoulder BI min 2Von 58-37-3496BE shoulder BI min 2VFIRELANDS [facility] [place] [address] XRay Report Signed Patient: Anh Tejeda MR#: [id number] : 1950 Acct:[id number] Age/Sex: 74 / F ADM Date: 07/19/25 Loc: XD Room: Type: [facility] Attending Dr: Vinay Matta DO Copies [...] bilateral shoulder degeneration Impression dictated by: Sharad Rboles M.D. 07/19/2025 10:39 PM Dictation Location: [facility]--20 Transcribed By: [facility] 07/19/252238 Dictated By: Sharad Robles DO 07/19/252238 Signed By: 07/19/[address] [place] [address] Physician GroupAmbulatory Visit Summaryon 98-31-0546Zazsbwffqq Visit SummaryAmbulatory Visit Summary ANH TEJEDA :1950 [...] EST With: Shanel DONG, Verónica Finch Where: [facility] [address] [place] [address] [place] [address]- You Need to Complete the Following Comprehensive [...] Hyperlipidemia Itching Liver fibrosis (more content not included)...[facility]/Clinic Noteon 42-61-1430Uaegesojrpdrbrat Office/Clinic Note Gastroenterology Office/Clinic Note Chief Complaint [...] 84.5 fL (03/27/25) Chloride: 104 mmol/L (03/27/25) [place] Absolute: 0.3 E9/L (03/27/25) CO2: 28 mmol/L (03/27/25) [place] Auto: 6.4 % (03/27/25) Creatinine: 1.2 mg/dL [...] without esophagitis) Ordered: Curr (more content not included)...[facility] JacksonComment on above:Result Comment: Electronically Signed By: Shanel DONG, Verónica Finch\.br\Date and Time Signed: 07/11/2512:47 EDTA1C with Estimated Average Gluon 06-26-2025 Glucose [Mass/Vol]157 mg/dLNoAtrium Health Union Physician GroupComment on above: Result Comment: PERFORMED BY: [place] [address] PATHOLOGIST AUTHOR AGENT KARTHIK CHICAS M.D.Performed By: #### A1C WTH eA, LIPID #### [facility] [address] [place] [address] USAAlanine aminotransferase [Enzymatic activity/volume] in Serum or PlasmaOrdered By: Vinay Bunting on 88-31-1321TCG [Catalytic activity/Vol]11 U/LNormal7-52Medina HospitalComment on above: Performed By: #### MG, CMP, CBC, LIPID #### [facility] [address] [place] [address] USAAlbumin [Mass/volume] in Serum or Plasma by Bromocresol green (BCG) dye binding methoOrdered By: Vinay Bunting on 83-22-4943Seeygdt BCG dye [Mass/Vol]3.8 g/dL3.5-5.7FJoint Township District Memorial HospitalAlkaline phosphatase [Enzymatic activity/volume] in Serum or PlasmaOrdered By: Vinay Bunting on 05-66-6155CIV [Catalytic activity/Vol]132 U/BZnpr44-882NlaafpymaMedina HospitalComment on above:Performed By: #### MG, CMP, CBC, LIPID #### [facility] [address] [place] [address] USAAppearance of UrineOrdered By: Marilyn Stewart on 06-26-2025 Appearance (U)ClearNormalClearMedina HospitalComment on above: Order Comment: A1C IS NOT DUE UNTIL OCTOBER.Performed By: #### MG, CMP, CBC, LIPID #### [facility] [address] [place] [address] USAAspartate aminotransferase [Enzymatic activity/volume] in Serum or PlasmaOrdered By: Vinay Bunting on 27-49-7512CTB [Catalytic activity/Vol]12 U/KZnf99-00YxycsuztdMedina HospitalComment on above: Performed By: #### MG, CMP, CBC, LIPID #### [facility] [address] [place] [address] USABacteria [Presence] in Urine by AutomatedOrdered By: Marilyn Stewart on 46-76-4768Unhfxnpj Auto Ql (U)None seen [HPF]None SeenMedina HospitalBilirubin Test strip Ql (U)Ordered By: Marilyn Bulldir on 02-91-9927Edcabegky Ql (U)NegativeNegativeMedina Hospital Bilirubin.total [Mass/volume] in Serum or PlasmaOrdered By: Vinay Bunting on 38-23-9370Bhgtvafau [Mass/Vol]0.7 mg/dLNormal0.3-1.0Medina HospitalComment on above:Performed By: #### MG, CMP, CBC, LIPID #### [facility] [address] [place] [address] USABlood estimated average glucose determination by estimation from glycated hemoglobinOrdered By: Vinay Bunting on 06-26-2025 Average glucose Estimated from glycated hemoglobin (Bld) [Mass/Vol]157 mg/dL Medina HospitalCalcium [Mass/volume] in Serum or PlasmaOrdered By: Vinay Bunting on 12-20-0299Zroclwu [Mass/Vol]8.9 mg/dLNormal8.6-10.3 Medina HospitalComment on above:Performed By: #### MG, CMP, CBC, LIPID #### [facility] [address] [place] [address] USACarbon dioxide, total [Moles/volume] in Serum or Plasma Ordered By: Vinay Bunting on 46-17-1370VP5 [Moles/Vol]32.4 mmol/LHigh21.0-31.0 Medina HospitalComment on above:Performed By: #### MG, CMP, CBC, LIPID #### [facility] [address] [place] [id number] USAChloride [Moles/volume] in Serum or PlasmaOrdered By: Vinay Bunting on 84-49-5173Cwerifbe [Moles/Vol]103 mmol/JVnrkqp07-797TpgahdnxjMedina HospitalComment on above:Performed By: #### MG, CMP, CBC, LIPID #### [facility] [address] [place] [address] USACholesterol [Mass/volume] in Serum or PlasmaOrdered By: Vinay Matta on 41-10-8227Wzfigslbbnl [Mass/Vol]102 mg/fJJvm218-152OfwgoizfsMedina HospitalComment on above:Chol less than 200 mg/dl low riskChol 201-239 mg/dl borderline riskChol 240 mg/dl and greater high riskResult Comment: Chol less than 200 mg/dl low risk Chol 201-239 mg/dl borderline risk Chol 240 mg/dl and greater high riskPerformed By: #### A1C WTH eA, LIPID #### [facility] [address] [place] [address] USACholesterol in HDL [Mass/volume] in Serum or PlasmaOrdered By: Vinay Matta on 49-09-9919Cacryzoqxmc in HDL [Mass/Vol]37 mg/dLNormal 23-92Medina HospitalComment on above:HDL CHOL ATP-III CLASSIFICATION Cardiovascular RiskHDL > or equal to 60 mg/dL LOWHDL < 40 mg/dL HIGHResult Comment: HDL CHOL ATP-III CLASSIFICATION Cardiovascular Risk HDL > or equal to 60 mg/dL LOW HDL < 40 mg/dL HIGHPerformed By: #### A1C WTH eA, LIPID #### [facility] [address] [place] [address] USACholesterol in LDL Calc [Mass/Vol]Ordered By: Vinay Matta on 36-63-3434Ewttwsbpcyu in LDL [Mass/Vol]43 mg/dL0-100Medina HospitalComment on above:LDL ATP III CLASSIFICATIONLDL less than 100 mg/dL OptimalLDL 100-129 mg/dL Near or above ifaiwouZVB312-281 mg/dL Borderline highLDL 160-189 mg/dL HighLDL greater than 189 mg/dL Very high Cholesterol in VLDL Calc [Mass/Vol]Ordered By: Vinay Matta on 06-26-2025 Cholesterol in VLDL [Mass/Vol]22 mg/dLMedina HospitalColor of Urine by AutoOrdered By: Marilyn Stewart on 50-07-5842Xcktm (U)Light-yellowNormal [facility] HospitalComment on above:Order Comment: A1C IS NOT DUE UNTIL OCTOBER.Performed By: #### MG, CMP, CBC, LIPID #### [facility] [address] [place] [address] USAComprehensive Metabolic Panelon [id number] [Mass/Vol]3.8 g/dLNormal3.5-5.7The [facility] Community Hospital Physician GroupComment on above: Performed By: #### MG, CMP, CBC, LIPID #### [facility] [address] [place] [address] USAGFR/1.73 sq M.predicted MDRD (S/P/Bld) [Vol rate/Area] 41.095 mL/min/{1.73_m2}NormalThe [facility] Community Hospital Physician GroupComment on above: Performed By: #### MG, CMP, CBC, LIPID #### [facility] [address] [place] [address] USACreatinine [Mass/volume] in Serum or PlasmaOrdered By: Vinay Matta on 42-44-5954Rjhoucbtel [Mass/Vol]1.34 mg/dLHigh0.60-1.20 Medina HospitalComment on above:Performed By: #### MG, CMP, CBC, LIPID #### [place] [address] USACreatinine [Mass/volume] in UrineOrdered By: Marilyn Stewart on 17-12-9807Jsshnwpvqu (U) [Mass/Vol]63.00 mg/dLMedina HospitalComment on above:No reference range establishedDipstick and Microscopicon 21-12-6418Rmsxgrln,UrineNone SeenNormalNone SeenThe [facility] Physician Group Comment on above:Order Comment: A1C IS NOT DUE UNTIL OCTOBER.Performed By: #### MG, CMP, CBC, LIPID #### [place] [id number] USABilirubin,UrineNegativeNormalNegativeThe [facility] Community Hospital Physician GroupComment on above:Order Comment: A1C IS NOT DUE UNTIL OCTOBER. Performed By: #### MG, CMP, CBC, LIPID #### [facility] [address] [place] [address] USAGlucose Ql (U)NormalNormalNormalThe [facility] Community Hospital Physician GroupComment on above:Order Comment: A1C IS NOT DUE UNTIL OCTOBER.Performed By: #### MG, CMP, CBC, LIPID #### [facility] [address] [place] [address] USAHyaline Casts,UrineNoneNormal0-8The [facility] Hospital Physician GroupComment on above:Order Comment: A1C IS NOT DUE UNTIL OCTOBER.Performed By: #### MG, CMP, CBC, LIPID #### [facility] [address] [place] [address] USAMucus,UrineRareNormalJay Hospital Physician GroupComment on above:Order Comment: A1C IS NOT DUE UNTIL OCTOBER.Result Comment: PERFORMED BY: [place] [address] PATHOLOGIST AUTHOR AGENT KARTHIK CHICAS M.D.Performed By: #### MG, CMP, CBC, LIPID #### [facility] [address] [place] [address] USANitrite,UrineNegativeNormalNegativeJay Hospital Physician GroupComment on above:Order Comment: A1C IS NOT DUE UNTIL OCTOBER.Performed By: #### MG, CMP, CBC, LIPID #### [facility] [address] [place] [address] USAOccult Blood,UrineNegativeNormalNegativeJay Hospital Physician GroupComment on above:Order Comment: A1C IS NOT DUE UNTIL OCTOBER. Performed By: #### MG, CMP, CBC, LIPID #### [facility] [address] [place] [address] USAProtein,UrineNegativeNormalNegativeThe [facility] Hospital Physician GroupComment on above:Order Comment: A1C IS NOT DUE UNTIL OCTOBER.Performed By: #### MG, CMP, CBC, LIPID #### [facility] [address] [place] [address] USARBC,Cphfh2-1Ijltkv3-6Pot [facility] Physician GroupComment on above:Order Comment: A1C IS NOT DUE UNTIL OCTOBER.Performed By: #### MG, CMP, CBC, LIPID #### [facility] [address] [place] [address] USASpecificy Rule,Urine1.425Vbzqne0.001-1.030The [facility] Hospital Physician GroupComment on above:Order Comment: A1C IS NOT DUE UNTIL OCTOBER. Performed By: #### MG, CMP, CBC, LIPID #### [facility] [address] [place] [address] USASquamous Epithelial Cell,Phaap9-5Ijocbg7-0Ktb [facility] Physician GroupComment on above:Order Comment: A1C IS NOT DUE UNTIL OCTOBER. Performed By: #### MG, CMP, CBC, LIPID #### [facility] [address] [place] [address] USAUrobilinogen,UrineNormalNormalNormalThe [facility] Hospital Physician GroupComment on above:Order Comment: A1C IS NOT DUE UNTIL OCTOBER. Performed By: #### MG, CMP, CBC, LIPID #### [facility] [address] [place] [address] USAWBC,Dmvnh0-2Jvpizb8-9Sfw [facility] Physician GroupComment on above:Order Comment: A1C IS NOT DUE UNTIL OCTOBER.Performed By: #### MG, CMP, CBC, LIPID #### [facility] [address] [place] [address] USAEpithelial cells.squamous [#/area] in Urine sediment by Automated countOrdered By: Marilyn Smithr on 81-81-9697Ydqijqnlej cells.squamous Auto (Urine sed) [#/Area]5-9 [HPF]High0-2FJoint Township District Memorial Hospital Erythrocyte distribution width [Ratio] by Automated countOrdered By: Marilyn Terry on 70-44-2726Zyrlkhnngda distribution width (RBC) [Ratio]16.6 %High11.9-15.3 Medina HospitalComment on above:Performed By: #### MG, CMP, CBC, LIPID #### [facility] [address] [place] [address] USAErythrocytes [#/area] in Urine sediment by Automated count Ordered By: Marilyn Smithr on 25-95-3231RUA Auto (Urine sed) [#/Area]1-2 [HPF]0-4 Medina HospitalErythrocytes [#/volume] in Blood by Automated countOrdered By: Marilyn Stewart on 42-70-5514KKV (Bld) [#/Vol]3.77 10*6/uLNormal 3.60-5.00Medina HospitalComment on above:Performed By: #### MG, CMP, CBC, LIPID #### [facility] [address] [place] [address] USAGlucose [Mass/volume] in Serum or PlasmaOrdered By: Vinay Matta on 49-68-9507Kaveybd [Mass/Vol]171 mg/fSMduk69-024JeqyrumtcMedina HospitalComment on above:ADA recommended reference rangeRandom Glucose [...] By: #### MG, CMP, CBC, LIPID #### [facility] [address] [place] [address] USAGlucose [Mass/volume] in Urine by Test stripOrdered By: Marilyn Stewart on 74-54-3732Qbinymb Test strip (U) [Mass/Vol]Normal mg/dLNormal Medina HospitalHematocrit [Volume Fraction] of Blood by Automated countOrdered By: Marilyn Stewart on 01-66-8818Yucjdnhnxu (Bld) [Volume fraction]32.4 %Low34.0-46.4FJoint Township District Memorial HospitalComment on above: Performed By: #### MG, CMP, CBC, LIPID #### [facility] [address] [place] [address] USAHemoglobin A1c/Hemoglobin.total in BloodOrdered By: Vinay Matta on 76-97-6291MvZ2a (Bld) [Mass fraction]7.1 %High4.3-5.6FJoint Township District Memorial HospitalComment on above:Increased risk for diabetes: 5.7 - 6.4diabetes: >6.4glycemic control for adults with diabetes: <7.0Result Comment: Increased risk for diabetes: 5.7 - 6.4 diabetes: >6.4 glycemic control for adults with diabetes: <7.0Performed By: #### A1C WTH eA, LIPID #### [facility] [address] [place] [address] USAHemoglobin Test strip Ql (U)Ordered By: Marilyn Stewart on 52-89-0802Onmomgljcq Ql (U)NegativeNegSelect Medical Specialty Hospital - [facility] [place] Hemoglobin [Mass/volume] in BloodOrdered By: Marilyn Stewart on 40-05-9012Gldswpcdaa (Bld) [Mass/Vol]11.1 g/dLLow11.8-15.4FJoint Township District Memorial HospitalComment on above:Performed By: #### MG, CMP, CBC, LIPID #### [place] [address] USAHemogram CBC Without Diffon 25-39-5251Eecm Corpuscular HGB Conc34.1 g/nTBbcpnl75.0-35.0The [facility] Hospital Physician GroupComment on above: Performed By: #### MG, CMP, CBC, LIPID #### [place] [address] USAWhite Blood Count5.4 [CFU]/mLNormal3.8-11.6The [facility] Hospital Physician GroupComment on above:Performed By: #### MG, CMP, CBC, LIPID #### [place] [address] USAHyaline casts [#/area] in Urine sediment by Automated countOrdered By: Marilyn Stewart on 83-59-9500Rhgziyy casts Auto (Urine sed) [#/Area]None [LPF]0-8Medina HospitalKetones [Presence] in Urine by Test stripOrdered By: Marilyn Stewart on 84-49-8602Mclbgsj Ql (U)Negative NormalNegSelect Medical Specialty Hospital - Southeast OhioComment on above:Order Comment: A1C IS NOT DUE UNTIL OCTOBER.Performed By: #### MG, CMP, CBC, LIPID #### [facility] [address] [place] [address] USALeukocyte esterase [Presence] in Urine by Test strip Ordered By: Marilyn Stewart on 58-03-6301Lrhnrxnck esterase Test strip Ql (U) NegativeNormalNegativeMedina HospitalComment on above:Order Comment: A1C IS NOT DUE UNTIL OCTOBER.Performed By: #### MG, CMP, CBC, LIPID #### [facility] [address] [place] [address] USALeukocytes [#/area] in Urine sediment by Automated count Ordered By: Marilyn Stewart on 86-32-4854DXZ Auto (Urine sed) [#/Area]1-2 [HPF]0-4 Medina HospitalLeukocytes [#/volume] corrected for nucleated erythrocytes in Blood by Automated counOrdered By: Marilyn Stewart on 43-23-8107DJG corrected for nucl RBC Auto (Bld) [#/Vol]5.4 10*3/uL3.8-11.6FJoint Township District Memorial HospitalLipid Panelon 98-34-0397OSI Cholesterol,Afpqywtxvg22 mg/dLNormal 0-100The [facility] Hospital Physician GroupComment on above:Result Comment: LDL ATP III CLASSIFICATION LDL less than 100 mg/dL Optimal LDL 100-129 mg/dL Near or above optimal LDL 130-159 mg/dL Borderline high LDL 160-189 mg/dL High LDL greater than 189 mg/dL Very highPerformed By: #### A1C WTH eA, LIPID #### [facility] [address] [place] [address] USATriglyceride w/Zlczjk399 mg/dLNormal0-149The [facility] Hospital Physician GroupComment on above:Result Comment: TRIG ATP III CLASSIFICATION TRIG less than 150 mg/dL Normal TRIG 150-199 mg/dL Borderline high TRIG 200-500 mg/dL High TRIG greater than 500 mg/dL Very high Standard traceable to the Center for Disease Conrtrol and Prevention (CDC) test method.Performed By: #### A1C WTH eA, LIPID #### [facility] [address] [place] [address] USAVLDL PNVBJCKKUNA79 mg/dLNormalThe [facility] Hospital Physician GroupComment on above:Performed By: #### A1C WTH eA, LIPID #### [facility] [address] [Entitic mass] by Automated countOrdered By: Marilyn Stewart on 51-28-0258XLM (RBC) [Entitic mass]29.3 epAcdsek33.7-34.3FJoint Township District Memorial HospitalComment on above:Performed By: #### MG, CMP, CBC, LIPID #### [facility] [address] Auto (RBC) [Mass/Vol]Ordered By: Marilyn Stewart on 08-28-5081YAMH (RBC) [Mass/Vol]34.1 g/dL32.0-35.0Medina HospitalMCV [Entitic volume] by Automated countOrdered By: Marilyn Stewart on 32-98-5065EWX (RBC) [Entitic vol]86.0 hANxqwbc87-295ZplngsuaoMedina HospitalComment on above:Performed By: #### MG, CMP, CBC, LIPID #### [facility] [address] [place] [address] USAMagnesium [Mass/volume] in Serum or PlasmaOrdered By: Marilyn Stewart on 84-58-9270Zytuipgpi [Mass/Vol]1.4 mg/dLLow1.9-2.7FJoint Township District Memorial HospitalComment on above:Performed By: #### MG, CMP, CBC, LIPID #### [facility] [address] [place] [address] USAMucus [Presence] in Urine by AutomatedOrdered By: Marilyn Stewart on 66-76-4749Atuef Auto Ql (U)Rare [LPF][facility] Nitrite Test strip Ql (U)Ordered By: Marilyn Stewart on 28-98-6832Zwwhmdn Ql (U) NegativeNegativeMedina HospitalNo Panel InformationOrdered By: Vinay Matta on 25-12-4406Keuodrziz GFR (CKD-EPI)41.095 mL/MinMedina HospitalPharmacy Creatinine Clearance (ChemN/AFJoint Township District Memorial HospitalParathyrin.intact [Mass/volume] in Serum or PlasmaOrdered By: Marilyn Smithr on 47-68-2884Jprujsplmo.intact [Mass/Vol]48.7 pg/zO49-15SzidaplqgMedina HospitalParathyroid Hormone Intacton 68-19-4432Wsvklsdides Hormone Riwwng99.7 pg/yFNtgqec98-88Tmj [facility] Hospital Physician GroupComment on above:Result Comment: PERFORMED BY: [place] [address] PATHOLOGIST AUTHOR AGENT KARTHIK CHICAS M.D.Performed By: #### MG, CMP, CBC, LIPID #### [facility] [address] [place] [address] USAPhosphate [Mass/volume] in Serum or PlasmaOrdered By: Marilyn Terry on 78-51-7520Kknigefij [Mass/Vol]4.0 mg/dLNormal2.5-4.5FJoint Township District Memorial HospitalComment on above:Result Comment: PERFORMED BY: [place] [address] PATHOLOGIST AUTHOR AGENT KARTHIK CHICAS M.D.Performed By: #### MG, CMP, CBC, LIPID #### [facility] [address] [place] [address] USAPlatelet mean volume [Entitic volume] in Blood by Automated countOrdered By: Marilyn Stewart on 27-45-7607Fhgjoxfg mean volume (Bld) [Entitic vol]7.1 fLNormal6.3-10.7FJoint Township District Memorial HospitalComment on above:Result Comment: PERFORMED BY: [place] [id number] PATHOLOGIST AUTHOR AGENT KARTHIK CHICAS M.D.Performed By: #### MG, CMP, CBC, LIPID #### [facility] [address] [place] [address] USAPlatelets [#/volume] in Blood by Automated countOrdered By: Marilyn Terry on 20-52-3452Kjzultpbm (Bld) [#/Vol]141 10*3/zABpq198-724 Medina HospitalComment on above:Performed By: #### MG, CMP, CBC, LIPID #### [facility] [address] [place] [address] USAPotassium [Moles/volume] in Serum or PlasmaOrdered By: Vinay Bunting on 07-08-0656Pusbxvqsi [Moles/Vol]4.6 mmol/LNormal3.5-5.1 Medina HospitalComment on above:Performed By: #### MG, CMP, CBC, LIPID #### [facility] [address] [place] [address] USAProtein Creat Ratio Ur Randomon 65-66-0946Onutfyntqt, Urine (Random)63.00 mg/dLNormalThe [facility] Hospital Physician GroupComment on above: Order Comment: A1C IS NOT DUE UNTIL OCTOBER.Result Comment: No reference range establishedPerformed By: #### MG, CMP, CBC, LIPID #### [place] [address] USAUrine Protein/Creatinine Ivkgh715 mg/g{Cre}High0-200The [facility] Hospital Physician GroupComment on above:Order Comment: A1C IS NOT DUE UNTIL OCTOBER.Result Comment: PERFORMED BY: [place] [address] PATHOLOGIST AUTHOR AGENT KARTHIK CHICAS M.D.Performed By: #### MG, CMP, CBC, LIPID #### [place] [id number] USAProtein Test strip (U) [Mass/Vol]Ordered By: Marilyn Stewart on 99-81-4539Hqlyrpf (U) [Mass/Vol]NegativeNegativeMedina HospitalProtein [Mass/volume] in Serum or PlasmaOrdered By: Vinay Bunting on 99-99-2155Yvlhcps [Mass/Vol]5.8 g/dLLow6.4-8.9[facility] Comment on above:Performed By: #### MG, CMP, CBC, LIPID #### [place] [address] USAProtein [Mass/volume] in UrineOrdered By: Marilyn Stewart on 91-34-1294Gvgetuy (U) [Mass/Vol]14 mg/dLHigh0-9[facility] Comment on above:Order Comment: A1C IS NOT DUE UNTIL OCTOBER.Performed By: #### MG, CMP, CBC, LIPID #### [facility] [address] [place] [address] USASerum globulin measurement by calculation (mass/volume) Ordered By: Vinay Bunting on 22-33-0542Szxgmdah (S) [Mass/Vol]2.0 g/dLNormal [facility]ina HospitalComment on above:Performed By: #### MG, CMP, CBC, LIPID #### [facility] [address] [place] [address] USASerum or plasma albumin/globulin mass ratioOrdered By: Vinay Bunting on 08-83-0237Hascxeu/Globulin [Mass ratio]1.9 {ratio}Normal Medina HospitalComment on above:Performed By: #### MG, CMP, CBC, LIPID #### [facility] [address] [place] [address] USASerum or plasma anion gap determinationOrdered By: Vinay Bunting on 67-48-6124Qqswh gap [Moles/Vol]9.2 mmol/LNormal6.0-15.0Medina HospitalComment on above:Performed By: #### MG, CMP, CBC, LIPID #### [facility] [address] [place] [address] USASerum or plasma total cholesterol/high density lipoprotein (HDL) cholesterol mass ratOrdered By: Vinay Bunting on 06-26-2025 Cholesterol.total/Cholesterol in HDL [Mass ratio]2.8 {ratio}Normal<5.0Medina HospitalComment on above:Result Comment: PERFORMED BY: [place] [address] PATHOLOGIST AUTHOR AGENT KARTHIK CHICAS M.D.Performed By: #### A1C WTH eA, LIPID #### [place] [address] USASodium [Moles/volume] in Serum or PlasmaOrdered By: Vinay Bunting on 67-38-7996Sqyqcr [Moles/Vol]140 mmol/DCdegxm912-040OxpjqfodiMedina HospitalComment on above:Performed By: #### MG, CMP, CBC, LIPID #### [facility] [address] [place] [address] USASpecific gravity Test strip (U) [Rel density]Ordered By: Marilyn Stewart on 96-94-9526Zzrnxplr gravity (U) [Rel density]1.0161.001-1.030 [facility]ina HospitalTriglyceride [Mass/volume] in Serum or Plasma Ordered By: Vinay Bunting on 16-56-3059Xyzthjgoengn [Mass/Vol]112 mg/dL0-149 [facility] HospitalComment on above:TRIG ATP III CLASSIFICATIONTRIG less than 150 mg/dL NormalTRIG 150-199 mg/dL Borderline highTRIG 200-500 mg/dL High TRIG greater than 500 mg/dL Very highStandard traceable to the Center for Disease Conrtrol and Prevention (CDC) test method. Urate [Mass/volume] in Serum or PlasmaOrdered By: Marilyn Stewart on 12-21-2573Mqhxc [Mass/Vol]3.7 mg/dLNormal2.3-6.6FJoint Township District Memorial HospitalComment on above:Performed By: #### MG, CMP, CBC, LIPID #### [facility] [address] [place] [address] USAUrea nitrogen [Mass/volume] in Serum or PlasmaOrdered By: Vinay Bunting on 72-69-6258Obql nitrogen [Mass/Vol]33 mg/dLHigh7-25Medina HospitalComment on above:Performed By: #### MG, CMP, CBC, LIPID #### [facility] [address] [place] [address] USAUrine protein/creatinine ratioOrdered By: Marilyn Terry on 59-54-8376Yzlapag/Creatinine (U) [Ratio]222 mg/g{Cre}High0-200Medina HospitalUrobilinogen Test strip (U) [Mass/Vol]Ordered By: Marilyn Terry on 52-65-2054Kxoixbztxban (U) [Mass/Vol]Normal mg/dLNormalMedina HospitalVitamin D 25 Hydroxy Totalon 44-50-6833Lwjxkls D 25 Hydroxy Total 61.6 ng/yCQpcjlo68-566Lbz [facility] Physician GroupComment on above:Result Comment: VITAMIN D STATUS 25(OH)VITAMIN D RANGE (ng/mL) Deficient <20 Insufficient 20 to <30 Sufficient 30 to 100 Reference: Albert Campo, Beltran LACKEY, et al. Evaluation,treatment, and prevention of vitamin D deficiency; an Endocrine Society clinical practice guideline. JCEM. 2010; 96(7):1911-. PERFORMED BY: [place] [id number] PATHOLOGIST AUTHOR AGENT KARTHIK CHICAS M.D.Performed By: #### MG, CMP, CBC, LIPID #### [facility] [address] [place] [address] USAVitamin D+Metabolites [Mass/volume] in Serum or Plasma Ordered By: Marilyn Stewart on 17-44-4668Hqqmkbh D+Metabolites [Mass/Vol]61.6 ng/mL 30-100Medina HospitalComment on above:VITAMIN D STATUS 25(OH)VITAMIN D RANGE (ng/mL) Deficient <20 Insufficient 20 to <56Kobvandcwm08 to 100Reference: Albert Campo, Beltran LACKEY, et al. Evaluation,treatment, and prevention of vitamin D deficiency; an Endocrine Society clinical practice guideline. JCEM. 2010; 96(7):191-.pH of Urine by Test stripOrdered By: Marilyn Stewart on 80-33-0777cD (U)6.0 [pH]Normal5.0-9.0 Medina HospitalComment on above:Order Comment: A1C IS NOT DUE UNTIL OCTOBER.Performed By: #### MG, CMP, CBC, LIPID #### [facility] [address] [place] [address] USACNOVSPon 74-96-7633JUMECENuzsi (SP) Office (HEMASA) ANH TEJEDA ([id number]) 1950 F Date Time Provider Department 04/25/25 11:00 AM DAKSHA BRIDGES During your visit today, we recorded the following information about you: Temperature Pulse Respiration Blood pressure 97.9 degrees 84/minute 18/minute 158/78 Weight Height 100.9 kg 1.58 m Daksha Bridges PA-C 04/25/2025 11:19 AM Signed Hematology Progress Note PATIENT NAME: Anh Tejeda CLINIC NO.: [id number] ATTENDING PHYSICIAN: Henry Walker MD DATE OF [...] ?C (97.9 ?F) (Temporal) (more content not included)...NormalKettering Health MiamisburgERYTHROPOIETIN/EPOon 04-19-2025 Erythropoietin (EPO) Qn26.7 [IU]/LHighSalem Regional Medical CenterErythropoietin (EPO) Qnon 53-19-0179Szxeyiodltwaha and review of laboratory resultsAbnormalCleveland ClinicTest analyzed by the [employer] DxI method.[facility] CBC W Auto Differential panel (Bld)on 60-50-5802Jkfpgpcki (Bld) [#/Vol]NINF [facility] CenterBasophils/100 WBC (Bld)0.2 %[facility] CenterDifferential cell count method Nom (Bld)AutoCleveland ClinicEosinophils (Bld) [#/Vol]0.09 10*3/uL NINFClevelformerly [facility] ClinicEosinophils/100 WBC (Bld)1.6 %[facility] CenterErythrocyte distribution width (RBC) [Ratio]16.4 %High11.5 - 15.0 %[facility] Hematocrit (Bld) [Volume fraction]32.9 %Low36.0 - 46.0 %[facility] Hemoglobin (Bld) [Mass/Vol]11 g/dLLow11.5 - 15.5 g/dLSalem Regional Medical CenterImmature granulocytes (Bld) [#/Vol]NINFClevelOhio State Health SystemImmature granulocytes/100 WBC (Bld)0.4 %[facility] Medical CenterLymphocytes (Bld) [#/Vol]1.4 10*3/uLSalem Regional Medical Center Lymphocytes/100 WBC (Bld)24.8 %[facility] BeachwoodH (RBC) [Entitic mass]29.5 pg 26.0 - 34.0 pgCTriHealthMCHC (RBC) [Mass/Vol]33.4 g/dL30.5 - 36.0 g/dL [facility], BeachwoodV (RBC) [Entitic vol]88.2 fL80.0 - 100.0 fLCTriHealth Monocytes (Bld) [#/Vol]0.36 10*3/uLNINFSalem Regional Medical CenterMonocytes/100 WBC (Bld) 6.4 %[facility] Medical CenterNeutrophils (Bld) [#/Vol]3.77 10*3/[facility] Neutrophils/100 WBC (Bld)66.6 %[facility] CenterNucleated RBC (Bld) [#/Vol]NINF [facility] CenterNucleated RBC/100 WBC (Bld) [Ratio]0 %/100 WBCSalem Regional Medical Center Platelet mean volume (Bld) [Entitic vol]9 fL9.0 - 12.7 fLCTriHealth Platelets (Bld) [#/Vol]136 10*3/uLLowSalem Regional Medical CenterRBC (Bld) [#/Vol]3.73 10*6/uLLow3.90 - 5.20 m/[facility] HospitalWBC (Bld) [#/Vol]5.65 10*3/[facility] HospitalBasophils (Bld) [#/Vol]10*3/uLNormal<0.11CThe [facility] Comment on above:Order Comment: Specimen Type: BLOOD SPECIMENOrdering Facility: [facility] Address:[address] [place] [address] Performed By: #### 34543-8, 83753-2 ####[facility] LABIA [id number] [place], [place] [address]Awdmlbiru/100 WBC (Bld)0.2 %NormalKettering Health MiamisburgComment on above:Order Comment: Specimen Type: BLOOD SPECIMENOrdering Facility: [facility] Address:[address] [place], [place] [address]Fnhhmfyfc By: #### 34517-9, 24045-7 ####[facility] LABCLIA [id number] [place], [place] [address]Krnwumdfuzls cell count method Nom (Bld)AutoNormal [facility] MiamisburgComaspirus ontonagon hospital on above:Order Comment: Specimen Type: BLOOD SPECIMENOrdering Facility: [facility] Address:[address] [place], [place] [address]Performed By: #### 92789-5, 40080-7 ####[facility] LABCLIA [id number] [place] [address] Eosinophils (Bld) [#/Vol]0.09 10*3/uLNormal<0.46[facility] Comment on above:Order Comment: Specimen Type: BLOOD SPECIMENOrdering Facility: [facility] Address:[address] [place] [address] Performed By: #### 04445-3, 10677-6 ####[facility] LABCLIA [id number] [place], [place] [address]Ihrrfhuxbwc/100 WBC (Bld)1.6 %NormalMcKitrick Hospital on above:Order Comment: Specimen Type: BLOOD SPECIMENOrdering Facility: [facility] Address:[address] [place], [place] [address]Performed By: #### 28512-4, 86536-8 ####[facility] LABCLIA [id number] [place], [place] [address]Lkstkfdqekb distribution width (RBC) [Ratio]16.4 %High 11.5-15.0McKitrick Hospital on above:Order Comment: Specimen Type: BLOOD SPECIMENOrdering Facility: [facility] Address:[address] [place], [place] [address]Performed By: #### 46238-9, 47965-7 ####[facility] LABCLIA [id number] [place], [place] [address]Qmbdeteqdn (Bld) [Volume fraction]32.9 %Low36.0-46.0 [facility] on above:Order Comment: Specimen Type: BLOOD SPECIMENOrdering Facility: [facility] Address:[address] [place], [place] [address]Performed By: #### 93650-6, 86116-7 ####[facility] LABCLIA [id number] [place] [address] Hemoglobin (Bld) [Mass/Vol]11.0 g/dLLow11.5-15.5CThe [facility] Comment on above:Order Comment: Specimen Type: BLOOD SPECIMENOrdering Facility: [facility] Address:[address] [place] [address] Performed By: #### 66048-4, 75264-2 ####[facility] LABIA [id number] [place], [place] [address]Xxznverd granulocytes (Bld) [#/Vol]10*3/uLNormal<0.10Mc[facility]rick Hospital on above:Order Comment: Specimen Type: BLOOD SPECIMENOrdering Facility: [facility] Address:[address] [place], [place] [address]Performed By: #### 26302- 8, 24019-6 ####[facility] LABIA [id number] [place], [place] [address]Ypkyxfep granulocytes/100 WBC (Bld)0.4 %Normal [facility] on above:Order Comment: Specimen Type: BLOOD SPECIMENOrdering Facility: [facility] Address:[address] [place], [place] [address]Performed By: #### 86848-5, 00912-9 ####[facility] [facility] [id number] [place] [address] Lymphocytes (Bld) [#/Vol]1.40 10*3/uLNormal1.00-4.00[facility] Comment on above:Order Comment: Specimen Type: BLOOD SPECIMENOrdering Facility: [facility] Address:[address] [place] [address] Performed By: #### 69390-6, 37955-7 ####[facility] LABCLIA [id number] [place], [place] [address]Oxcvoafumti/100 WBC (Bld)24.8 %NormalMcKitrick Hospital on above:Order Comment: Specimen Type: BLOOD SPECIMENOrdering Facility: [facility] Address:[address] [place], [place] [address]Performed By: #### 41813-3, 01399-8 ####[facility] LABCLIA [id number] [place], [place] [address]XUZ (RBC) [Entitic mass]29.5 baYyfppo06.0-34.0[facility] on above:Order Comment: Specimen Type: BLOOD SPECIMENOrdering Facility: [facility] Address:[address] [place], [place] [address]Performed By: #### 15963-7, 94799-8 ####[facility] LABCLIA [id number] [place], [place] [address]JNXC (RBC) [Mass/Vol]33.4 g/rCJyfaec22.5-36.0[facility] on above:Order Comment: Specimen Type: BLOOD SPECIMENOrdering Facility: [facility] Address:[address] [place], [place] [address]Performed By: #### 79732-9, 55995-4 ####[facility] LABCLIA [id number] [place], [place] [address]OXO (RBC) [Entitic vol]88.2 fLNormal 80.0-100.0[facility] on above:Order Comment: Specimen Type: BLOOD SPECIMENOrdering Facility: [facility] Address:[address] [place], [place] [address]Performed By: #### 91586-9, 25879-3 ####[facility] LABCLIA [id number] [place], [place] [address]Ttiflpaix (Bld) [#/Vol]0.36 10*3/uLNormal<0.87[facility] on above:Order Comment: Specimen Type: BLOOD SPECIMENOrdering Facility: [facility] Address:[address] [place], [place] [address]Performed By: #### 66452-3, 17295-2 ####[facility] LABCLIA [id number] [place] [address] Monocytes/100 WBC (Bld)6.4 %NormalMcKitrick Hospital on above: Order Comment: Specimen Type: BLOOD SPECIMENOrdering Facility: [facility] Address:[address] [place], [place] [address]Performed By: #### 72622- 8, 42779-4 ####[facility] LABIA [id number] [place], [place] [address]Vlmsaeobuaz (Bld) [#/Vol]3.77 10*3/uLNormal 1.45-7.50[facility] on above:Order Comment: Specimen Type: BLOOD SPECIMENOrdering Facility: [facility] Address:[address] [place], [place] [address]Performed By: #### 42548-4, 05359-7 ####[facility] LABIA [id number] [place], [place] [address]Jtxhqkkqgyu/100 WBC (Bld)66.6 %NormalMcKitrick Hospital on above:Order Comment: Specimen Type: BLOOD SPECIMENOrdering Facility: [facility] Address:[address] [place], [place] [address]Performed By: #### 40649-5, 68992-8 ####[facility] LABIA [id number] [place], [place] [address]Syzranudh RBC (Bld) [#/Vol]10*3/uLNormal<0.01[facility] on above:Order Comment: Specimen Type: BLOOD SPECIMENOrdering Facility: [facility] Address:[address] [place], [place] [address]Performed By: #### 45795- 8, 22274-4 ####[facility] LABCLIA [id number] [place], [place] [address]Phizeysqc RBC/100 WBC (Bld) [Ratio]0.0 /100 WBC NormalMcKitrick Hospital on above:Order Comment: Specimen Type: BLOOD SPECIMENOrdering Facility: [facility] Address:[address] [place], [place] [address]Performed By: #### 50592-3, 04648-2 ####[facility] LABCLIA [id number] [place], [place] [address]Gxjcbwzn mean volume (Bld) [Entitic vol]9.0 fLNormal9.0-12.7CUniversity [facility]als [facility] on above:Order Comment: Specimen Type: BLOOD SPECIMENOrdering Facility: [facility] Address:[address] [place], [place] [address]Performed By: #### 85461-7, 92959-0 ####[facility] LABCLIA [id number] [place] [address] Platelets (Bld) [#/Vol]136 10*3/iVUmk994-551CexhzexjyMcKitrick Hospital on above:Order Comment: Specimen Type: BLOOD SPECIMENOrdering Facility: [facility] Address:[address] [place], [place] [address]Performed By: #### 51223-8, 65294-8 ####[facility] LABCLIA [id number] [place], [place] [address]MYQ (Bld) [#/Vol]3.73 10*6/uLLow3.90-5.20 [facility] on above:Order Comment: Specimen Type: BLOOD SPECIMENOrdering Facility: [facility] Address:[address] [place], [place] [address]Performed By: #### 78563-8, 57924-3 ####[facility] LABCLIA [id number] [place], [place] [address]JVP (Bld) [#/Vol]5.65 10*3/uLNormal3.70-11.00[facility]burgComment on above:Order Comment: Specimen Type: BLOOD SPECIMENOrdering Facility: [facility] Address:[address] [place], [place] [address]Lpajypwjw By: #### 65587-5, 92430-4 ####[facility]ENTERZANDRA [facility] LABCLIA [id number] [place], [place] [address]Rgahkzneyqrlh metabolic 2000 panelOrdered By: Naida Bruce on 69-12-2788Zhcpqji [Mass/Vol]4.2 g/dL3.9 - 4.9 g/dLEmmalena ClinicALP [Catalytic activity/Vol]157 U/LHigh34 - 123 U/LCleveland ClinicALT [Catalytic activity/Vol]17 U/L7 - 38 U/LCleveland ClinicAnion gap [Moles/Vol]10 mmol/L8 - 15 mmol/LCleveland ClinicAST [Catalytic activity/Vol]18 U/L13 - 35 U/L [facility] CenterBilirubin [Mass/Vol]0.8 mg/dL0.2 - 1.3 mg/dLSalem Regional Medical Center Calcium [Mass/Vol]10 mg/dL8.5 - 10.2 mg/dLEmmalena ClinicChloride [Moles/Vol] 102 mmol/L98 - 107 mmol/LCleveland ClinicCO2 [Moles/Vol]28 mmol/L22 - 30 mmol/L [facility] CenterCreatinine [Mass/Vol]1.16 mg/dLHigh0.58 - 0.96 mg/dLSalem Regional Medical CenterGFR/1.73 sq M.predicted among non-blacks MDRD [...] eGFRmay not accurately reflect actual GFR.Glucose [Mass/Vol]154 mg/lMWihl48 - 99 mg/dL [facility] on above:The [place] Diabetes Association (ADA) provides guidance for cutoff [...] Medical Care in Diabetes 2016, [place] Diabetes Association. Diabetes Care. 2016.39(Suppl 1). Interpretation and review of laboratory resultsAbnormalCleveland ClinicPotassium [Moles/Vol]4.9 mmol/L3.7 - 5.1 mmol/LClevelformerly [facility] ClinicProtein [Mass/Vol]6.4 g/dL 6.3 - 8.0 g/dLMartins Ferry Hospitalodium [Moles/Vol]140 mmol/L136 - 144 mmol/L [facility] Medical CenterUrea nitrogen [Mass/Vol]33 mg/dLHigh7 - 21 mg/dLAshtabula General HospitalComprehensive metabolic 2000 panelon 77-62-9604Umlggbq [Mass/Vol]4.2 g/dLNormal3.9-4.9CUniversity [facility]als [facility] on above:Order Comment: Specimen Type: BLOOD SPECIMEN [facility] Address: [address] [place], [place] [address]Performed By: #### 57653-1, 2276-4 #### [facility] CLIA [id number] [address] [place] [address] [place] AMERICAALP [Catalytic activity/Vol] 157 U/VFcpt90-047UazjxalagMcKitrick Hospital on above:Order Comment: Specimen Type: BLOOD SPECIMEN [facility] Address: [address] [place], [place] [address]Performed By: #### 15609-4, 2276-02 #### [facility] CLIA [id number] [address] [place], [place] [address] [place] AMERICAALT [Catalytic activity/Vol] 17 U/LNormal7-38[facility] on above:Order Comment: Specimen Type: BLOOD SPECIMEN [facility] Address: [address] [place], [place] [address]Performed By: #### 16716-6, 2276-02 #### [facility] CLIA [id number] [address] [place] [address] [place] AMERICAAnion gap [Moles/Vol]10 mmol/LNormal8-15[facility] on above:Order Comment: Specimen Type: BLOOD SPECIMEN [facility] Address: [address] [place], [place] [address]Performed By: #### 22154-9, 2276-02 #### [facility] CLIA [id number] [address] [place] [address] [place] AMERICAAST [Catalytic activity/Vol] 18 U/MSwfiok52-22CzbbzvrdgMcKitrick Hospital on above:Order Comment: Specimen Type: BLOOD SPECIMEN [facility] Address: [address] [place], [place] [address]Performed By: #### 63265-4, 2276-02 #### [facility] CLIA [id number] [address] [place], [place] [address] [place] AMERICABilirubin [Mass/Vol]0.8 mg/dLNormal0.2-1.3CUniversity Hospitals [facility] on above:Order Comment: Specimen Type: BLOOD SPECIMEN [facility] Address: [address] [place], [place] [address]Performed By: #### 44549-8, 2275- #### [facility] CLIA [id number] [address] [place] [address] [place] AMERICACalcium [Mass/Vol]10.0 mg/dL Normal8.5-10.2CUniversity Hospitals [facility] on above:Order Comment: Specimen Type: BLOOD SPECIMEN [facility] Address: [address] [place], [place] [address]Performed By: #### 61152-0, 2276-02 #### [facility] CLIA [id number] [address] [place] [address] [place] AMERICAChloride [Moles/Vol]102 mmol/BNyhgmn87-479OijnrcvciMcKitrick Hospital on above:Order Comment: Specimen Type: BLOOD SPECIMEN [facility] Address: [address] [place], [place] [address]Performed By: #### 40288-6, 2276-02 #### [facility] CLIA [id number] [address] [place] [address] [place] AMERICACO2 [Moles/Vol]28 mmol/L Zbirss35-15WpxtltacpMcKitrick Hospital on above:Order Comment: Specimen Type: BLOOD SPECIMEN [facility] Address: [address] [place], [place] [address]Performed By: #### 76601-4, 2276-02 #### [facility] CLIA [id number] [address] [place] [address] [place] AMERICACreatinine [Mass/Vol]1.16 mg/dLHigh0.58-0.96[facility] on above:Order Comment: Specimen Type: BLOOD SPECIMEN [facility] Address: [address] [place], [place] [address]Performed By: #### 17137-2, 2276-02 #### [facility] CLIA [id number] [address] [place] [address] [place] AMERICACreatinine and Glomerular filtration rate.predicted panel (S/P/Bld)49 mL/min/1.73m???Low>=60[facility] on above:Order Comment: Specimen Type: BLOOD SPECIMEN [facility] Address: [address] [place], [place] [address]Result Comment: Estimated Glomerular Filtration Rate (eGFR) is [...] not accurately reflect actual GFR.Performed By: #### 05251-5, 2276-4 #### [facility] CLIA [id number] [address] [place] [address] [place] AMERICAGlucose [Mass/Vol]154 mg/dL Yevi04-61FhyxrveokMcKitrick Hospital on above:Order Comment: Specimen Type: BLOOD SPECIMEN [facility] Address: [address] [place], [place] [address]Result Comment: The [place] Diabetes Association (ADA) provides guidance for cutoff [...] Medical Care in Diabetes 2016, [place] Diabetes Association. Diabetes Care. 2016.39(Suppl 1).Performed By: #### 47812-5, 2276-4 #### [facility] CLIA [id number] [address] [place], [place] [address] [place] AMERICAPotassium [Moles/Vol]4.9 mmol/LNormal3.7-5.1[facility] ClevelandComment on above:Order Comment: Specimen Type: BLOOD SPECIMEN [facility] Address: [address] [place], [place] [address]Performed By: #### 19454-6, 6-4 #### [facility] CLIA [id number] [address] [place] [address] [place] AMERICAProtein [Mass/Vol]6.4 g/dL Normal6.3-8.0[facility] on above:Order Comment: Specimen Type: BLOOD SPECIMEN [facility] Address: [address] [place], [place] [address]Performed By: #### 12547-9, 2275-4 #### [facility] IA [id number] [address] [place] [address] [place] AMERICASodium [Moles/Vol]140 mmol/L Tnbmok778-739VzzpcjjljMcKitrick Hospital on above:Order Comment: Specimen Type: BLOOD SPECIMEN [facility] Address: [address] [place], [place] [address]Performed By: #### 39236-2, 2275-4 #### [facility] IA [id number] [address] [place] [address] [place] AMERICAUrea nitrogen [Mass/Vol]33 mg/dLHigh7-21[facility] on above:Order Comment: Specimen Type: BLOOD SPECIMEN [facility] Address: [address] [place], [place] [address]Performed By: #### 14006-4, 2275-4 #### [facility] CLIA [id number] [address] [place] [address] [place] AMERICAEPO SerPl-aCncon 04-18-2025 Erythropoietin (EPO) Qn26.7 mIU/mLHigh2.6-18.5CUniversity Hospitals [facility] on above:Order Comment: Specimen Type: BLOOD SPECIMEN [facility] Address: [address] [place], [place] [address]Performed By: #### 66380-0, 2276-4 #### [facility] CLIA [id number] [address] [place] [address] [place] AMERICAFERRITINon 04-18-2025 Ferritin [Mass/Vol]398 ng/wXRvnj92.7 - 205.1 ng/mLCselect medical specialty hospital - southeast ohioand ClinicFOLATE, SERUM on 50-71-7371Pdrxru [Mass/Vol]ng/mL4.7 - PINF ng/mLClevelOhio State Health SystemComment on above:A result of > 20 ng/mL is not necessarily indicative of a pathologic or treatable condition: it reflects a limitation of the test methodology. Assay reference range: 4.8 to 24.2 ng/mL. Suitable for detection of folate deficiency. Reference: Folate III (Folate III) [package insert V 1.0 Chinese]. [facility], [place], [place]: September 2015. Ferritin SerPl-mCncon 90-26-7846Hzhzakrw [Mass/Vol]398.0 ng/pRPrnk72.7-205.1 [facility] on above:Order Comment: Specimen Type: BLOOD SPECIMENOrdering Facility: [facility] Address:[address] [place], [place] [address]Performed By: #### 73238-1, 2276-4, 3016-3, 4542-7 ####[facility] LABCLIA [id number] [place] [address] [place] AMERICAFerritin [Mass/Vol]on 04-18-2025 Interpretation and review of laboratory resultsAbnormalCleveland ClinicFolate SerPl-mCncon 84-62-5086Vzzcpd [Mass/Vol]ng/mLNormal>4.7CUniversity [facility]als [facility] on above:Order Comment: Specimen Type: BLOOD SPECIMENOrdering Facility: [facility] Address:[address] [place], [place] [address]Result Comment: A result of > 20 ng/mL is not necessarily indicative of a pathologic or treatable condition: it reflects a limitation of the test methodology. Assay reference range: 4.8 to 24.2 ng/mL. Suitable for detection of folate deficiency. Reference: Folate III (Folate III) [package insert V 1.0 Chinese]. [facility], [place], [place]: September 2015.Performed By: #### 2885-2, 2132-9, 2284-8 ####[facility] LABCLIA [id number] [address] [address] [place] OF UC HEALTHHAPTOGLOBINon 04-18-2025 Haptoglobin [Mass/Vol]155 mg/dL31 - 238 mg/dLSalem Regional Medical CenterHaptoglob SerPl-mCncon 21-67-6038Hhdxfhyurfl [Mass/Vol]155 mg/vTDibium14-964HvxgptshpMcKitrick Hospital on above:Order Comment: Specimen Type: BLOOD SPECIMENOrdering Facility: [facility] Address:[address] [place], [place] [address]Performed By: #### 89863-8, 2276-4, 3016-3, 4542-7 ####[facility] LABCLIA [id number] [place] [id number] [place] AMERICAIMMUNOFIXATION SCREEN, SERUMon 96-66-9866AQZ RESULTNo M protein is identified.NormalNo M protein is identified. [facility] on above:Order Comment: Specimen Type: BLOOD SPECIMEN [facility] Address: [address] [place], [place] [address]Performed By: #### 99333-6, 6-4 #### [facility] CLIA [id number] [address] [place] [address] [place] AMERICASTAFF REVIEW (MPA)Reviewed by Mo Gomes MD, Ph.D ([id number])[facility] on above:Order Comment: Specimen Type: BLOOD SPECIMEN [facility] Address: [address] [place], [place] [address]Performed By: #### 46304-4, 6-4 #### [facility] CLIA [id number] [address] [place] [address] [place] AMERICAIMMUNOGLOBULINS,IGG,IGA,IGM on 01-17-0625DqG [Mass/Vol]48 mg/eEJqg83-558QczenlcvoMcKitrick Hospital on above:Order Comment: Specimen Type: BLOOD SPECIMEN [facility] Address: [address] [place], [place] [address]Performed By: #### 05694-5, 6-4 #### [facility] CLIA [id number] [address] [place] [address] [place] AMERICAIgG [Mass/Vol]682 mg/dLLow 700-1600[facility] on above:Order Comment: Specimen Type: BLOOD SPECIMEN [facility] Address: [address] [place], [place] [address]Performed By: #### 96145-5, 6-4 #### [facility] CLIA [id number] [address] [place] [address] [place] AMERICAIgM [Mass/Vol]42 mg/dLNormal 40-230[facility] on above:Order Comment: Specimen Type: BLOOD SPECIMEN [facility] Address: [address] [place], [place] [address]Performed By: #### 18722-0, 6-4 #### [facility] CLIA [id number] [address] [place] [address] [place] AMERICAIron and Iron binding capacity panelon 51-27-1907Orov [Mass/Vol]73 ug/dL41 - 186 ug/dLSalem Regional Medical Center Iron binding capacity [Mass/Vol]336 ug/dL232 - 386 ug/dLSalem Regional Medical Center Iron/TIBC [Molar ratio]21.7 %15.0 - 57.0 %[facility] Medical CenterIron [Mass/Vol]73 ug/vOHlvdyz05-876ImlzklnelMcKitrick Hospital on above:Order Comment: Specimen Type: BLOOD SPECIMENOrdering Facility: [facility] Address:[address] [place], [place] [address]Performed By: #### 71425-3, 6-4, 3016-3, 4542-7 ####[facility] LABCLIA [id number] [place] [address] [place] AMERICAIron binding capacity [Mass/Vol]336 ug/wVTkpbfg689-625ZlpxygwmcMcKitrick Hospital on above:Order Comment: Specimen Type: BLOOD SPECIMENOrdering Facility: [facility] Address:[address] [place], [place] [address]Performed By: #### 48178- 8, 6-4, 3016-3, 4542-7 ####[facility] LABCLIA [id number] [place] [address] [place] Iron/TIBC [Molar ratio]21.7 %Ldieax71.0-57.0[facility] on above:Order Comment: Specimen Type: BLOOD SPECIMENOrdering Facility: [facility] Address:[address] [place], [place] [address]Performed By: #### 82929-3, 6-4, 3016-3, 4542-7 ####[facility]IA [id number] [place] [address] [place] KAPPA/SAMANIEGO,FREE,SERon 82-18-6218Jrroiwehqaltni light chains.kappa.free (S) [Mass/Vol]28.2 mg/LHigh3.3-19.4CUniversity Hospitals [facility] on above:Order Comment: Specimen Type: BLOOD SPECIMEN [facility] Address: [address] [place], [place] [address]Result Comment: Rarely, increased serum free light chains levels may not be detected or accurately quantified due to prozone phenomenon or in high viscosity samples using this immunoturbidimetric assay. Correlation with other laboratory results and clinical findings is recommended. The [place] Free Light Chain was performed using the Binding Site Optilite immunoturbidimetric method. Result obtained with different assay methods or kits cannot be used interchangeably.Performed By: #### 11038-0, 6-4 #### [facility] CLIA [id number] [address] [place] [address] [place] AMERICAImmunoglobulin light chains.kappa/Immunoglobulin light chains.lambda (S) [Mass ratio]1.16Normal 0.26-1.65[facility] on above:Order Comment: Specimen Type: BLOOD SPECIMEN [facility] Address: [address] [place], [place] [address]Performed By: #### 36335-0, 2276-02 #### [facility] CLIA [id number] [address] [place] [address] [place] AMERICAImmunoglobulin light chains.lambda.free [Mass/Vol]24.4 mg/LNormal5.7-26.3CThe [facility] Comment on above:Order Comment: Specimen Type: BLOOD SPECIMEN [facility] Address: [address] [place], [place] [address]Result Comment: Rarely, increased serum free light chains [...] kits cannot be used interchangeably.Performed By: #### 98359-4, 2276-02 #### [facility] CLIA [id number] [address] [place] [address] [place] AMERICALACTATE DEHYDROGENASEon 41-82-9639GIB [Catalytic activity/Vol]236 U/PNkyv439 - 214 U/LCTriHealth LDH SerPl-cCncon 44-00-1810DOQ [Catalytic activity/Vol]236 U/NGrfo004-794 [facility] on above:Order Comment: Specimen Type: BLOOD SPECIMEN [facility] Address: [address] [place], [place] [address]Performed By: #### 48457-4, 2276-02 #### [facility] CLIA [id number] [address] [place] [address] [place] AMERICALDH [Catalytic activity/Vol] on 82-56-2598Cmmvswclrplvzx and review of laboratory resultsAbnormalCleveland Wadsworth-Rittman HospitalNo Panel Informationon 06-57-4343[facility] Interpretation and review of laboratory resultsNormalCleveland Wadsworth-Rittman HospitalInterpretation and review of laboratory resultsNormalCselect medical specialty hospital [facility] southeast ohioand Clinic Emmalena ClinicInterpretation and review of laboratory resultsAbnormalCDetwiler Memorial HospitalPROTEIN ELECTROPHORESIS SERUM (P)on 12-58-8682Vqnwsjp [Mass/Vol]3.85 g/dLNormal3.43-5.41[facility] on above: Order Comment: Specimen Type: BLOOD SPECIMENOrdering Facility: [facility] Address:[address] [place], [place] [address]Performed By: #### [id number] ####[facility] LABCLIA [id number] [place] [address] [place] AMERICAAlpha 1 globulin Elph [Mass/Vol]0.37 g/dLNormal0.18-0.43[facility] on above: Order Comment: Specimen Type: BLOOD SPECIMENOrdering Facility: [facility] Address:[address] [place], [place] [address]Performed By: #### [id number] ####[facility] LABCLIA [id number] [place] [address] [place] AMERICAAlpha 2 globulin Elph [Mass/Vol]0.78 g/dLNormal0.42-0.98[facility] on above: Order Comment: Specimen Type: BLOOD SPECIMENOrdering Facility: [facility] Address:[address] [place], [place] [address]Performed By: #### [id number] ####[facility] LABCLIA [id number] [place] [address] [place] AMERICABeta globulin Elph [Mass/Vol]0.67 g/dLNormal0.61-1.17[facility] on above: Order Comment: Specimen Type: BLOOD SPECIMENOrdering Facility: [facility] Address:[address] [place], [place] [address]Performed By: #### [id number] ####[facility] LABCLIA [id number] [place] [address] [place] AMERICAGamma globulin Elph [Mass/Vol]0.54 g/dLNormal0.53-1.51[facility] on above: Order Comment: Specimen Type: BLOOD SPECIMENOrdering Facility: [facility] Address:[address] [place], [place] [address]Performed By: #### [id number] ####[facility]IA [id number] [place] [address] [place] AMERICAM-PROTEIN LOCATION NormalMcKitrick Hospital on above:Order Comment: Specimen Type: BLOOD SPECIMENOrdering Facility: [facility] Address:[address] [place], [place] [address]Result Comment: Not Applicable.Performed By: #### [id number] ####[facility] [id number] [place] [address] [place] OF AMERICAProtein Fractions [Interp]No definitive M protein is identified on protein electrophoresis.Normal No definitive M protein is identified on protein electrophoresis.[facility] on above:Order Comment: Specimen Type: BLOOD SPECIMENOrdering Facility: [facility] Address:[address] [place], [place] [address]Performed By: #### [id number] ####[facility] [id number] [place] [address] [place] AMERICAProtein.monoclonal Elph [Mass/Vol]0.00 g/dLNormal<=0.00[facility] on above:Order Comment: Specimen Type: BLOOD SPECIMENOrdering Facility: [facility] Address:[address] [place] [address]Wayaotnie By: #### [id number] ####[facility] LABCLIA [id number] [place] [id number] [facility] SPE STAFF REVIEWReviewed by Mo Gomes MD, Ph.D ([id number])[facility] on above:Order Comment: Specimen Type: BLOOD SPECIMENOrdering Facility: [facility] Address:[address] [place], [place] [address]Performed By: #### [id number] ####[facility] LABCLIA [id number] [place] [id number] [facility] AMERICAProt SerPl-mCncon 81-27-9594Hhevdac [Mass/Vol]6.2 g/dLLow6.3-8.0 [facility] on above:Order Comment: Specimen Type: BLOOD SPECIMENOrdering Facility: [facility] Address:[address] [place], [place] [address]Performed By: #### 2885-2, 2132-9, 2284-8 ####[facility] LABIA [id number] [address]RETICULOCYTE COUNTon 92-78-5054Sxvrtrstxwhab (Bld) [#/Vol]0.154 10*3/uLHighSalem Regional Medical CenterRetbanner #on 87-47-6632Gxbkdczxsavtg (Bld) [#/Vol]0.79800 10*3/uLHigh0.018-0.100[facility] on above:Order Comment: Specimen Type: BLOOD SPECIMENOrdering Facility: [facility] Address:[address] [place], [place] [address]Performed By: #### 40342-4, 56529-9 ####[facility] LABCLIA [id number] [place], [place] [address]Xibzpophxujem (Bld) [#/Vol]on 04-18-2025 Reticulocytes/100 RBC (Bld)4.1 %High0.4 - 2.0 %[facility] Regional Medical CenterReticulocytes/100 RBC (Bld)4.1 %High0.4-2.0[facility] on above:Order Comment: Specimen Type: BLOOD SPECIMENOrdering Facility: [facility] Address:[address] [place], [place] [address]Performed By: #### 95143- 8, 00677-6 ####[facility] LABCLIA [id number] [place], [place] [address]PYLDELX STIMULATING HORMONEon 92-54-5290FQZ Qn1.25 m[IU]/LCleveland [facility] Qnon 33-02-7113Davqlxgddmvxws and review of laboratory resultsNormalCSt. Rita's Hospital SerPl-aCncon 17-12-7818XVW Qn1.250 m[IU]/LNormal0.270-4.200[facility] on above:Order Comment: Specimen Type: BLOOD SPECIMENOrdering Facility: [facility] Address:[address] [place], [place] [address]Performed By: #### 22164- 8, 2276-4, 3016-3, 4542-7 ####[facility] LABCLIA [id number] [place] [address] [place] OF AMERICAVITAMIN B12on 03-78-0717Rsvpfovgt (Vitamin B12) [Mass/Vol]854 pg/mL232 - 1245 pg/mL [facility] Medical CenterVit B12 SerPl-mCncon 82-51-1532Jkvbzhzkg (Vitamin B12) [Mass/Vol]854 pg/sCOembxu795-7072EzjdulyrdUniversity Hospitals Conneaut Medical Center on above: Order Comment: Specimen Type: BLOOD SPECIMENOrdering Facility: [facility] Address:[address] [place], [place] [address]Performed By: #### 2885- 2, 2132-9, 2284-8 ####[facility] LABCLIA [id number] [place] [address] [place] AMERICACB W Auto Differential panel (Bld)on 60-64-1423Vvkkpzzkx (Bld) [#/Vol]10*3/uLNormal<0.11 [facility] on above:Order Comment: Specimen Type: BLOOD SPECIMEN [facility] Address: [address] [place], [place] [address]Performed By: #### 91895-8, 2275- #### [facility] CLIA [id number] [address] [place] [address] [place] AMERICABasophils/100 WBC (Bld)0.2 % [facility] on above:Order Comment: Specimen Type: BLOOD SPECIMEN [facility] Address: [address] [place], [place] [address]Performed By: #### 01257-3, 2276-02 #### [facility] CLIA [id number] [address] [place] [address] [place] AMERICADifferential cell count method Nom (Bld)AutoNormalCUniversity Hospitals Conneaut Medical Center on above:Order Comment: Specimen Type: BLOOD SPECIMEN [facility] Address: [address] [place], [place] [address]Performed By: #### 85222-1, 2276-02 #### [facility] CLIA [id number] [address] [place] [address] [place] AMERICAEosinophils (Bld) [#/Vol] 0.12 10*3/uLNormal<0.46[facility] on above:Order Comment: Specimen Type: BLOOD SPECIMEN [facility] Address: [address] [place], [place] [address]Performed By: #### 21432-4, 2276-02 #### [facility] CLIA [id number] [address] [place] [address] [place] AMERICAEosinophils/100 WBC (Bld)2.3 %[facility] on above:Order Comment: Specimen Type: BLOOD SPECIMEN [facility] Address: [address] [place], [place] [address]Performed By: #### 44436-3, 2275-4 #### [facility] CLIA [id number] [address] [place] [address] [place] AMERICAErythrocyte distribution width (RBC) [Ratio]16.1 %High11.5-15.0[facility] on above:Order Comment: Specimen Type: BLOOD SPECIMEN [facility] Address: [address] [place], [place] [address]Performed By: #### 81247-2, 4 #### [facility] CLIA [id number] [address] [place] [address] [place] AMERICAHematocrit (Bld) [Volume fraction]30.4 %Low36.0-46.0[facility] on above:Order Comment: Specimen Type: BLOOD SPECIMEN [facility] Address: [address] [place], [place] [address]Performed By: #### 76728-4, 4 #### [facility] CLIA [id number] [address] [place] [address] [place] AMERICAHemoglobin (Bld) [Mass/Vol] 10.2 g/dLLow11.5-15.5CUniversity Hospitals Conneaut Medical Center on above:Order Comment: Specimen Type: BLOOD SPECIMEN [facility] Address: [address] [place], [place] [address]Performed By: #### 06703-4, 2275-4 #### [facility] CLIA [id number] [address] [place] [address] [place] AMERICAImmature granulocytes (Bld) [#/Vol]10*3/uLNormal<0.10[facility] on above:Order Comment: Specimen Type: BLOOD SPECIMEN [facility] Address: [address] [place], [place] [address]Performed By: #### 18283-3, 2276-02 #### [facility] CLIA [id number] [address] [place] [address] [place] AMERICAImmature granulocytes/100 WBC (Bld)0.4 %NormalMcKitrick Hospital on above:Order Comment: Specimen Type: BLOOD SPECIMEN [facility] Address: [address] [place], [place] [address]Performed By: #### 05139-0, 2276-02 #### [facility] CLIA [id number] [address] [place] [address] [place] AMERICALymphocytes (Bld) [#/Vol] 1.31 10*3/uLNormal1.00-4.00[facility] on above:Order Comment: Specimen Type: BLOOD SPECIMEN [facility] Address: [address] [place], [place] [address]Performed By: #### 27364-4, 2276-02 #### [facility] CLIA [id number] [address] [place] [address] [place] AMERICALymphocytes/100 WBC (Bld) 24.8 %NormalMcKitrick Hospital on above:Order Comment: Specimen Type: BLOOD SPECIMEN [facility] Address: [address] [place], [place] [address]Performed By: #### 03126-2, 2276-02 #### [facility] CLIA [id number] [address] [place] [address] [place] AMERICAMCH (RBC) [Entitic mass]29.6 jjQqieqk63.0-34.0[facility] on above:Order Comment: Specimen Type: BLOOD SPECIMEN [facility] Address: [address] [place], [place] [address]Performed By: #### 03501-0, 2276-02 #### [facility] CLIA [id number] [address] [place], [place] [address] [place] OF AMERICAMCHC (RBC) [Mass/Vol]33.6 g/cHEvgpmb03.5-36.0[facility] on above:Order Comment: Specimen Type: BLOOD SPECIMEN [facility] Address: [address] [place], [place] [address]Performed By: #### 38317-7, 2276-02 #### [facility] CLIA [id number] [address] [place] [address] [place] AMERICAMCV (RBC) [Entitic vol]88.1 lMJqsdlp07.0-100.0[facility] on above:Order Comment: Specimen Type: BLOOD SPECIMEN [facility] Address: [address] [place], [place] [address]Performed By: #### 90843-1, 2276-02 #### [facility] CLIA [id number] [address] [place] [address] [place] AMERICAMonocytes (Bld) [#/Vol]0.28 10*3/uLNormal<0.87[facility] on above:Order Comment: Specimen Type: BLOOD SPECIMEN [facility] Address: [address] [place], [place] [address]Performed By: #### 08268-8, 2276-02 #### [facility] CLIA [id number] [address] [place] [address] [place] AMERICAMonocytes/100 WBC (Bld)5.3 % NormalMcKitrick Hospital on above:Order Comment: Specimen Type: BLOOD SPECIMEN [facility] Address: [address] [place], [place] [address]Performed By: #### 12887-1, 2276-02 #### [facility] CLIA [id number] [address] [place] [address] [place] AMERICANeutrophils (Bld) [#/Vol] 3.54 10*3/uLNormal1.45-7.50[facility] on above:Order Comment: Specimen Type: BLOOD SPECIMEN [facility] Address: [address] [place], [place] [address]Performed By: #### 79594-2, 6-4 #### [facility] CLIA [id number] [address] [place] [address] [place] AMERICANeutrophils/100 WBC (Bld) 67.0 %NormalMcKitrick Hospital on above:Order Comment: Specimen Type: BLOOD SPECIMEN [facility] Address: [address] [place], [place] [address]Performed By: #### 86229-4, 2275-4 #### [facility] CLIA [id number] [address] [place] [address] [place] AMERICANucleated RBC (Bld) [#/Vol] 10*3/uLNormal<0.01[facility] on above:Order Comment: Specimen Type: BLOOD SPECIMEN [facility] Address: [address] [place], [place] [address]Performed By: #### 38853-2, 2275-4 #### [facility] CLIA [id number] [address] [place] [address] [place] AMERICANucleated RBC/100 WBC (Bld) [Ratio]0.0 /100 WBCNormalCUniversity Hospitals Conneaut Medical Center on above:Order Comment: Specimen Type: BLOOD SPECIMEN [facility] Address: [address] [place], [place] [address]Performed By: #### 35410-7, 2275-4 #### [facility] CLIA [id number] [address] [place] [address] [place] AMERICAPlatelet mean volume (Bld) [Entitic vol]9.1 fLNormal9.0-12.7CUniversity Hospitals Conneaut Medical Center on above: Order Comment: Specimen Type: BLOOD SPECIMEN [facility] Address: [address] [place], [place] [address]Performed By: #### 88970-5, 6-4 #### [facility] CLIA [id number] [address] [place] [address] OF AMERICAPlatelets (Bld) [#/Vol]136 10*3/wHWnz941-273FytqzpmkkMc[facility]rick Hospital on above:Order Comment: Specimen Type: BLOOD SPECIMEN [facility] Address: [address] [place], [place] [address]Performed By: #### 56340-3, 2275-4 #### [facility] CLIA [id number] [address] [place], [place] [address]RBC (Bld) [#/Vol]3.45 10*6/uLLow3.90-5.20[facility] on above:Order Comment: Specimen Type: BLOOD SPECIMEN [facility] Address: [address] [place], [place] [address]Performed By: #### 84594-1, 2275-4 #### [facility] CLIA [id number] [address] [place], [place] [address]WBC (Bld) [#/Vol]5.28 10*3/uLNormal3.70-11.00[facility] on above:Order Comment: Specimen Type: BLOOD SPECIMEN [facility] Address: [address] [place], [place] [address]Performed By: #### 70486-7, 2275-4 #### [facility] CLIA [id number] [address] [place] [address] [place] AMERICACNOVSPon 02-40-8535ZLPFNC Visit (SP) Office ([facility]MASA) ANH TEJEDA ([id number]) 1950 F Date Time Provider Department 04/07/25 2:00 PM DAKSHA BRIDGES During your visit today, we recorded the following information about you: Temperature Pulse Respiration Blood pressure 97 degrees 74/minute 18/minute 130/69 Weight Height 101.1 kg 1.58 m Daksha Bridges PA-C 04/07/2025 2:52 PM Signed Hematology Progress Note PATIENT NAME: Anh Tejeda CLINIC NO.: [id number] ATTENDING PHYSICIAN: Henry Walker MD DATE OF [...] for prolonged bleeding, bruising (more content not included)...NormalKettering Health MiamisburgComprehensive metabolic 2000 panelon 22-64-6773Oiyiicr [Mass/Vol]4.0 g/dLNormal3.9-4.9CUniversity Hospitals Conneaut Medical Center on above:Order Comment: Specimen Type: BLOOD SPECIMENOrdering Facility: [facility] Address:[address] [place], [place] [address]Performed By: #### 57126-4 ####[facility] LABCLIA [id number] [place], [place] [address]ZZV [Catalytic activity/Vol]141 U/PYpie35-908BgqwcshwhMcKitrick Hospital on above:Order Comment: Specimen Type: BLOOD SPECIMENOrdering Facility: [facility] Address:[address] [place], [place] [address]Performed By: #### 37516-3 ####[facility] LABCLIA [id number] [place] [address] ALT [Catalytic activity/Vol]15 U/LNormal7-38[facility] on above:Order Comment: Specimen Type: BLOOD SPECIMENOrdering Facility: [facility] Address:[address] [place], [place] [address]Performed By: #### 23989-6 ####[facility] CENTERZANDRA [facility] LABCLIA [id number] SONIA GARCIADIGNITY HEALTH MER[facility] [place] [address]Pzfqv gap [Moles/Vol]10 mmol/LNormal8-15[facility] on above:Order Comment: Specimen Type: BLOOD SPECIMENOrdering Facility: [facility] Address:[address] [place], [place] [address]Performed By: #### 37496-6 ####[facility] LABCLIA [id number] SONIA GONZALESDIGNITY HEALTH MER[facility] GILBERT MEDICAL CENTERRITODARBY, [place] [address]VJS [Catalytic activity/Vol]17 U/MBermtu73-74DtdbgtokzMcKitrick Hospital on above:Order Comment: Specimen Type: BLOOD SPECIMENOrdering Facility: [facility] Address:[address] [place], [place] [address]Performed By: #### 26657-1 ####[facility] LABCLIA [id number] [facility] [place] [address] Bilirubin [Mass/Vol]0.7 mg/dLNormal0.2-1.3CUniversity Hospitals Conneaut Medical Center on above:Order Comment: Specimen Type: BLOOD SPECIMENOrdering Facility: [facility] Address:[address] [place], [place] [address]Performed By: #### 99742-3 ####[facility] LABCLIA [id number] [place] [address]Rtqbnaj [Mass/Vol]9.3 mg/dLNormal8.5-10.2CUniversity Hospitals Conneaut Medical Center on above:Order Comment: Specimen Type: BLOOD SPECIMENOrdering Facility: [facility] Address:[address] [place], [place] [address]Performed By: #### 02077-1 ####[facility] LABCLIA [id number] ALEX JANETDIGNITY HEALTH MERCY GILBERT MEDICAL CENTERRITODARBY, [place] [address]Gjbowfkp [Moles/Vol]105 mmol/HIvgrdq21-356KxdeaudosMcKitrick Hospital on above: Order Comment: Specimen Type: BLOOD SPECIMENOrdering Facility: [facility] Address:[address] [place], [place] [address]Performed By: #### 32083- 8 ####[facility] LABCLIA [id number] [place], [place] [address]QF1 [Moles/Vol]26 mmol/BIbwdfo01-65LoyvtymedMcKitrick Hospital on above:Order Comment: Specimen Type: BLOOD SPECIMENOrdering Facility: [facility] Address:[address] [place], [place] [address]Performed By: #### 69339-4 ####[facility] LABCLIA [id number] [place], [place] [address]Vsoorcjqdr [Mass/Vol]1.16 mg/dL High0.58-0.96[facility] on above:Order Comment: Specimen Type: BLOOD SPECIMENOrdering Facility: [facility] Address:[address] [place], [place] [address]Performed By: #### 60637-0 ####[facility] LABIA [id number] [place] [address] Creatinine and Glomerular filtration rate.predicted panel (S/P/Bld)49 mL/min/1.73m???Low>=60[facility] on above:Order Comment: Specimen Type: BLOOD SPECIMENOrdering Facility: [facility] Address:[address] [place], [place] [address]Result Comment: Estimated Glomerular Filtration Rate (eGFR) is calculated using the 2020 CKD-EPI creatinine equation. This equation utilizes serum creatinine, sex, and age as parameters. The creatinine assay has traceable calibration to isotope dilution-mass spectrometry. Refer to KDIGO guidelines for clinical interpretation. In patients with unstable renal function, e.g. those with acute kidney injury, the eGFR may not accurately reflect actual GFR.Performed By: #### 48996-3 ####[facility] LABIA [id number] [place] [address] Glucose [Mass/Vol]186 mg/dQQaxv25-27FobdccdqyMcKitrick Hospital on above: Order Comment: Specimen Type: BLOOD SPECIMENOrdering Facility: [facility] Address:[address] [place], [place] [address]Result Comment: The [place] Diabetes Association (ADA) provides guidance for cutoff [...] Medical Care in Diabetes 2016, [place] Diabetes Association. Diabetes Care. 2016.39(Suppl 1).Performed By: #### 60845-2 ####[facility] LABCLIA [id number] [place], [place] [address]Ldofqjjsq [Moles/Vol]5.0 mmol/LNormal3.7-5.1CUniversity Hospitals Conneaut Medical Center on above:Order Comment: Specimen Type: BLOOD SPECIMENOrdering Facility: [facility] Address:[address] [place], [place] [address]Performed By: #### 09304-0 ####[facility] LABCLIA [id number] [place], [place] [address]Ddoeviw [Mass/Vol]6.0 g/dLLow6.3-8.0[facility] on above:Order Comment: Specimen Type: BLOOD SPECIMENOrdering Facility: [facility] Address:[address] [place], [place] [address]Performed By: #### 12692- 8 ####[facility] LABCLIA [id number] [place], [place] [address]Ismusz [Moles/Vol]141 mmol/HTfykuo838-233DihkbvgtgMcKitrick Hospital on above:Order Comment: Specimen Type: BLOOD SPECIMENOrdering Facility: [facility] Address:[address] [place], [place] [address]Performed By: #### 13942-1 ####[facility] CENTERZANDRA [facility] LABCLIA [id number] [place], [place] [address]Tizs nitrogen [Mass/Vol]41 mg/dLHigh7-21[facility] on above:Order Comment: Specimen Type: BLOOD SPECIMENOrdering Facility: [facility] Address:[address] [place], [place] [address]Performed By: #### 26234-2 ####[facility] LABCLIA [id number] [place] [address] Ferritin SerPl-mCncon 47-56-0167Gxkxgddk [Mass/Vol]363.0 ng/uDNizd26.7-205.1 [facility] on above:Order Comment: Specimen Type: BLOOD SPECIMENOrdering Facility: [facility] Address:[address] [place], [place] [address]Performed By: #### 2276-4, 66199-0 ####[facility] LABCLIA [id number] [place] [address] [place] AMERICAIron and Iron binding capacity panelon 05-63-2653Mtzp [Mass/Vol]81 ug/xSKlanjc90-455ZpqyvqywuMcKitrick Hospital on above:Order Comment: Specimen Type: BLOOD SPECIMENOrdering Facility: [facility] Address:[address] [place], [place] [address]Performed By: #### 2276- 4, 42756-8 ####[facility] LABCLIA [id number] [facility] [place] [address] [place] AMERICAIron binding capacity [Mass/Vol]342 ug/rRPljwpu633-367BqmbnrvzyMcKitrick Hospital on above:Order Comment: Specimen Type: BLOOD SPECIMENOrdering Facility: [facility] Address:[address] [place], [place] [address]Performed By: #### 2276- 4, 32288-9 ####[facility] LABCLIA [id number] [place] [address] [place] AMERICAIron/TIBC [Molar ratio] 23.7 %Zhguuk16.0-57.0[facility] on above:Order Comment: Specimen Type: BLOOD SPECIMENOrdering Facility: [facility] Address:[address] [place], [place] [address]Performed By: #### 2276-4, 29661-9 ####[facility] LABCLIA [id number] [address] STATES OF UC HEALTHRetics #on 04-07-2025 Reticulocytes (Bld) [#/Vol]0.76621 10*3/uLHigh0.018-0.100[facility] on above:Order Comment: Specimen Type: BLOOD SPECIMEN [facility] Address: [address] [place], [place] [address]Performed By: #### 13770-7, 2276-4 #### [facility] CLIA [id number] [address] [place] [address] STATES OF AMERICAReticulocytes (Bld) [#/Vol] on 27-55-7828Buvatsbhfnieq/100 RBC (Bld)3.8 %High0.4-2.0[facility] above:Order Comment: Specimen Type: BLOOD SPECIMEN [facility] Address: [address] [place], [place] [address]Performed By: #### 68419-5, 2276-4 #### [facility] CLIA [id number] [address] [place] [address] [place] AMERICAAmbulatory Visit Summaryon 86-68-9581Qppemgwgjs Visit SummaryAmbulatory Visit Summary ANH TEJEDA :1950 [...] you for choosing us for your [facility]. [facility] Office/Clinic Noteon 86-92-8774Ygxjccumooqnzsgl Office/Clinic NoteGastroenterology Office/Clinic Note Chief Complaint Review [...] 84.5 fL (03/27/25) Chloride: 104 mmol/L (03/27/25) [place] Absolute: 0.3 E9/L (03/27/25) CO2: 28 mmol/L (03/27/25) [place] Auto: 6.4 % (03/27/25) Creatinine: 1.2 mg/dL [...] IgG: <2 (01/28/24) Histor (more content not included)...NormalCommunity Memorial HospitalComment on above:Result Comment: Electronically Signed By: Shanel DONG, Verónica Guadalupe\Date and Time Signed: 03/30/2510:12 EDTAFPon 40-15-7691CIB.tumor marker [Mass/Vol] ng/mLInvalid Interpretation Code0.0-9.2FPike Community HospitalComment on above:Result Comment: [employer] Electrochemiluminescence Immunoassay (ECLIA) Values obtained with different assay methods or kits cannot be used interchangeably. Results cannot be interpreted as absolute evidence of the presence or absence of malignant disease. This test is not interpretable in females. Performed at: Lab[address] [id number] PhD Isma BanksPerformed By: #### [id number] #### [facility] [address] [place], [place] [address]CMI w/ Auto Diffon 50-71-5241Ufkvjujhb/100 WBC (Bld)0.4 %Normal 0.0-2.0Community Memorial HospitalComment on above:Performed By: #### [id number] #### [facility] [address] [place], [place] [address]Orqcfepki/Leukocytes Auto (Bld) [Pure # fraction]0.0 E9/LNormal 0.0-0.2FPike Community HospitalComment on above:Performed By: #### [id number] #### [facility] [address] [place], [place] [address]Bzckkwuqfiw (Bld) [#/Vol]0.1 E9/LNormal0.0-0.5FPike Community HospitalComment on above:Performed By: #### 3358940 #### [facility] [address] [place], [place] [address]Dngbwxifaoi/100 WBC (Bld)1.9 %Normal0.0-8.0[facility] HospitalComment on above:Performed By: #### [id number] #### [facility] [address] [place] [id number] distribution width (RBC) [Ratio]16.3 %High10.9-14.2 [facility] HospitalComment on above:Performed By: #### [id number] #### [facility] [address] [place] [id number] (Bld) [Volume fraction]32.7 %Low34.0-46.0[facility] HospitalComment on above:Performed By: #### [id number] #### [facility] [address] [place] [id number] (Bld) [Mass/Vol]11.4 g/dLLow12.0-16.0[facility] HospitalComment on above:Performed By: #### [id number] #### [facility] [address] [place] [id number] (Bld) [#/Vol]1.4 E9/LNormal1.0-4.0[facility] HospitalComment on above:Performed By: #### [id number] #### [facility] [address] [place] [address] 59385Dczlkzgxibw/100 WBC (Bld)28.3 %Hlevsn34.0-50.0Community Memorial HospitalComment on above:Performed By: #### [id number] #### [facility] [address] [place] [address] 04293DDU (RBC) [Entitic mass]29.5 fuLpqgmx40.0-34.0[facility] Memorial HospitalComment on above:Performed By: #### [id number] #### [facility] [address] [place] [address] 99424ZFQD (RBC) [Mass/Vol]34.9 g/gDOkruei72.4-36.0[facility] Memorial HospitalComment on above:Performed By: #### [id number] #### [facility] [address] [place] [address] 09297WFI (RBC) [Entitic vol]84.5 rDTwhnnd87.0-100.0[facility] Memorial HospitalComment on above:Performed By: #### [id number] #### [facility] [address] [place] [address] 83543Nwbnvffst (Bld) [#/Vol]0.3 E9/LNormal0.2-1.0[facility] Memorial HospitalComment on above:Performed By: #### [id number] #### [facility] [address] [place] [address] 65941Txtphcufoqg (Bld) [#/Vol]3.1 E9/LNormal2.0-7.5FPike Community HospitalComment on above:Performed By: #### [id number] #### [facility] [address] [place] [address] 08933Siyzcpwlisq/100 WBC (Bld)63.0 %Workwq41.0-75.0[facility] Memorial HospitalComment on above:Performed By: #### 5172651 #### [facility] [address] [place] [address] 01907Jxbnyvbq mean volume (Bld) [Entitic vol]7.2 fLNormal6.4-10.8 [facility] HospitalComment on above:Performed By: #### 5703934 #### [facility] [address] [place] [address] 15493Bslrqrvbl (Bld) [#/Vol]139.0 E9/DKap460.0-500.0[facility] Memorial HospitalComment on above:Performed By: #### 1861651 #### [facility] [address] [place] [address] 92944CZJ (Bld) [#/Vol]3.9 E12/LLow4.3-5.9[facility] Comment on above:Performed By: #### [id number] #### [facility] [address], [place] [address]MRH corrected for nucl RBC Auto (Bld) [#/Vol]4.9 E9/LNormal 4.0-11.0[facility] Centerer Johns Hopkins HospitalComment on above:Performed By: #### [id number] #### [facility] [address], [place] [address]TUIYYYJGMJqiejkr By: SYSTEM SYSTEM on 90-75-0526Ahdvehl [Mass/Vol]4.0 g/dLNormal3.3 - 5.0 gm/dLRemisol ChemAlbumin/Globulin [Mass ratio] 1.7 {ratio}Normal1.1 - 2.2Remisol ChemALP [Catalytic activity/Vol]133 [iU]/dHigh 21 - 98 Int._Unit/LRemisol ChemALT No additional P-5'-P [Catalytic activity/Vol] 20 [iU]/dNormal6 - 46 Int._Unit/LRemisol ChemAnion gap [Moles/Vol]12 mmol/L Normal6 - 16 mEq/LRemisol ChemAST [Catalytic activity/Vol]17 [iU]/dNormal5 - 43 Int._Unit/LRemisol ChemBilirubin [Mass/Vol]0.6 mg/dLNormal0.0 - 1.1 mg/dLRemisol ChemCalcium [Mass/Vol]9.0 mg/dLNormal8.9 - 11.1 mg/dLRemisol ChemChloride [Moles/Vol]104 mmol/HMtkcve305 - 111 mmol/LRemisol ChemCO2 [Moles/Vol]28 mmol/L Caxubu06 - 31 mmol/LRemisol ChemCreatinine [Mass/Vol]1.2 mg/dLNormal0.5 - 1.3 mg/dLRemisol ZfyjwDCN31 mL/min/1.73 m2Low>=59mL/min/1.73 x2Bwfowtq ChemGlobulin (S) [Mass/Vol]2.3 g/dLNormal1.4 - 4.0 gm/dLRemisol ChemGlucose [Mass/Vol]155 mg/mAZqyqbj92 - 199 mg/dLRemisol ChemPotassium [Moles/Vol]4.3 mmol/LNormal3.5 - 5.3 mmol/LRemisol ChemProtein [Mass/Vol]6.3 g/dLNormal6.0 - 7.8 gm/dLRemisol ChemSodium [Moles/Vol]140 mmol/KMfkfuv808 - 145 mmol/LRemisol ChemUrea nitrogen [Mass/Vol]36 mg/dLHigh5 - 21 mg/dLRemisol ChemUrea nitrogen/Creatinine [Mass ratio]30 mg/lxJfya76 - 20Remisol ChemCMPon 52-13-0169Oyndvar [Mass/Vol]4.0 g/dL Normal3.3-5.0Community Memorial HospitalComment on above:Performed By: #### [id number] #### [facility] [address] [place] [address] 87446Xwsxnnv/Globulin (S) [Mass conc ratio]1.9Zcznbf6.1-2.2FPike Community HospitalComment on above:Performed By: #### [id number] #### [facility] [address] [place] [address] 57166EBY [Catalytic activity/Vol]133 Int._Unit/UFezl62-74DspadoCommunity Memorial HospitalComment on above:Performed By: #### [id number] #### [facility] [address] [place] [address] 83312RFI No additional P-5'-P [Catalytic activity/Vol]20 Int._Unit/L Normal6-46Community Memorial HospitalComment on above:Performed By: #### [id number] #### [facility] [address] [place] [address] 51789Mkmpi gap [Moles/Vol]12 mmol/LNormal6-16Community Memorial HospitalComment on above:Performed By: #### [id number] #### [facility] [address] [place] [address] 60566NLL [Catalytic activity/Vol]17 Int._Unit/LNormal5-43Community Memorial HospitalComment on above:Performed By: #### [id number] #### [facility] [address] [place] [address] 30260Fyztnrpob [Mass/Vol]0.6 mg/dLNormal0.0-1.1FPike Community HospitalComment on above:Performed By: #### [id number] #### [facility] [address], [place] [address]Whwpokv [Mass/Vol]9.0 mg/dLNormal8.9-11.1FPike Community HospitalComment on above:Performed By: #### [id number] #### [facility] [address], [place] [address]Yrtahtrc [Moles/Vol]104 mmol/ALiiqmr986-342XwlvqbCommunity Memorial HospitalComment on above:Performed By: #### [id number] #### [facility] [address], [place] [address]JZ4 [Moles/Vol]28 mmol/ADzogpy46-68EhqfvcCommunity Memorial Hospital Comment on above:Performed By: #### [id number] #### [facility] [address], [place] [address]Dhetnogunc [Mass/Vol]1.2 mg/dLNormal0.5-1.3FPike Community HospitalComment on above:Performed By: #### [id number] #### [facility] [address], [place] [address]Mhafomip (S) [Mass/Vol]2.3 g/dLNormal1.4-4.0Community Memorial HospitalComment on above:Performed By: #### [id number] #### [facility] [address], [place] [address]Fnessod [Mass/Vol]155 mg/lVAfbjvt68-646ZgjppdCommunity Memorial HospitalComment on above:Performed By: #### [id number] #### [facility] [address], [place] [address]Ukjppzhzp [Moles/Vol]4.3 mmol/LNormal3.5-5.3FPike Community HospitalComment on above:Performed By: #### 2604370 #### [facility] [address], [place] [address]Sxnulfb [Mass/Vol]6.3 g/dLNormal6.0-7.8Community Memorial HospitalComment on above:Performed By: #### [id number] #### [facility] [address], [place] [address]Dmzgcb [Moles/Vol]140 mmol/LYrrxhu664-236KzmvbzCommunity Memorial HospitalComment on above:Performed By: #### 1309570 #### [facility] [address], [place] [address]Aewd nitrogen [Mass/Vol]36 mg/dLHigh5-21Community Memorial HospitalComment on above:Performed By: #### [id number] #### [facility] [address], [place] [address]Trdl nitrogen/Creatinine [Mass ratio]30 No UwbxhLkjg25-38PylzhaCommunity Memorial HospitalComment on above:Performed By: #### [id number] #### [facility] [address], [place] [address]HPHUNSDMCPBDqrpmbu By: Karlie Gomez on 05-93-7901mREZ Coag (PPP) [Time]35.5 gUhtaax20.1 - 36.5 second(s)[facility] Auto CoagComment on above: Interpretive Data: Parameter [...] the same coagulation reagent and instrumentation as [facility]. Currently there are no coagulation studies available worldwide for children to 14 days, andno normal ranges. Heparin therapeutic range (represented by Anti-Factor Xa activity of 0.2 - 0.4 U/mL) corresponds to PTT of 56.6 - 109.0 sec.INR Coag (PPP) [Relative time]1.05 {INR}Invalid Interpretation CodeBRISTOW MED[facility] – [place] Auto CoagComment on above:Interpretive Data: INR results are specifically intended to assess patients stabilized on long-term Anticoagulation therapy suggested INR s Less Intensive Anticoagulation 2.0 3.0 Conventional Range 3.0 4.5PT Coag (PPP) [Time]11.8 sNormal9.4 - 12.5 second(s) [facility] Auto CoagComment on above:Interpretive Data: 15 days [...] the same coagulation reagent and instrumentation as [facility]. Currently there are no coagulation studies available worldwide for children to 14 days, andno normal ranges.HEMATOLOGYOrdered By: SYSTEM SYSTEM on 14-08-3082Aqrwmjjot/100 WBC (Bld)0.4 %Normal0.0 - 2.0 %Remisol HemeBasophils/Leukocytes [...] E9/LNormal1.0 - 4.0 E9/LRemisol HemeLymphocytes/100 WBC (Bld)28.3 %Drfkek57.0 - 50.0 %Remisol HemeMCH (RBC) [Entitic mass]29.5 pg Ylsjqw79.0 - 34.0 pgRemisol HemeMCHC (RBC) [Mass/Vol]34.9 g/rDEpigug18.4 - 36.0 gm/dLRemisol HemeMCV (RBC) [Entitic vol]84.5 oXOrcqju43.0 - 100.0 fLRemisol Heme Monocytes (Bld) [#/Vol]0.3 E9/LNormal0.2 - 1.0 E9/LRemisol HemeMonocytes/100 WBC (Bld)6.4 %Normal4.0 - 14.0 %Remisol HemeNeutrophils (Bld) [#/Vol]3.1 E9/LNormal 2.0 - 7.5 E9/LRemisol HemeNeutrophils/100 WBC (Bld)63.0 %Qchpgo06.0 - 75.0 % Remisol HemePlatelet mean volume (Bld) [Entitic vol]7.2 fLNormal6.4 - 10.8 fL Remisol HemePlatelets (Bld) [#/Vol]139.0 E9/WViz737.0 - 500.0 E9/LRemisol Heme RBC (Bld) [#/Vol]3.9 E12/LLow4.3 - 5.9 E12/LRemisol HemeWBC corrected for nucl RBC Auto (Bld) [#/Vol]4.9 E9/LNormal4.0 - 11.0 E9/LRemisol HemePT & PTTon 75-49-0859cZIC Coag (PPP) [Time]35.5 second(s)Samafw05.1-36.5Fisher Johns Hopkins HospitalComment on above:Result Comment: Parameter 15 days [...] the same coagulation reagent and instrumentation as [facility]. Currently there are no coagulation studies available worldwide for children to 14 days, andno normal ranges. Heparin therapeutic range (represented by Anti-Factor Xa activity of 0.2 - 0.4 U/mL) corresponds to PTT of 56.6 - 109.0 sec.Performed By: #### [id number] #### [facility] [address], [place] [address]HCC Coag (PPP) [Relative time]1.05 {INR}Invalid Interpretation CodeCommunity Memorial HospitalComment on above:Result Comment: INR results are specifically intended to assess patients stabilized on long-term Anticoagulation therapy suggested INR???s ???Less Intensive Anticoagulation??? 2.0 ??? 3.0 Conventional Range 3.0 ??? 4.5Performed By: #### [id number] #### [facility] [address], [place] [address]XD Coag (PPP) [Time]11.8 second(s)Normal9.4-12.5Fisher Johns Hopkins HospitalComment on above:Result Comment: 15 days - [...] the same coagulation reagent and instrumentation as [facility]. Currently there are no coagulation studies available worldwide for children to 14 days, andno normal ranges.Performed By: #### [id number] #### [facility] [address], [place] [address]gIGFrd 50-97-2386tAAF71 mL/min/1.73 m2Low>=59Community Memorial HospitalComment on above:Performed By: #### [id number] #### [facility] [address], [place] [address]Jnfoggvsmvx 06-88-4258NjjmfwtyfYkdnbmuok From: Ellyn Copeland To: Lauren Day; Ellyn Copeland; Sent: 09/30/2024 13:06:26 EST Show up: 01/28/2025 14:06:00 EDT Subject: Ambulatory Reminder Due Date/Time: 02/28/2025 14:06:00 EDT Reminder Please call patient to schedule Fibroscan for 03-10 [facility]-2099[place] [facility] Main [place] [id number] MRI Report Signed Patient: Anh Tejeda MR#: [id number] : 1950 Acct:[id number] Age/Sex: 74 / F ADM Date: 02/08/25 Loc: [facility] Room: Type: [facility] Attending Dr: Tessy Bruner MD Copies [...] severe facet arthropathy. Moderate central canal stenosis. Vbeg-oo-hdqeiumo bilateral neural foraminal narrowing. Mild crowding of [...] Narendra Guaman M.D.02/08/2025 2:29 PM Dictation Location: [place] [address] Transcribed By: [facility] 02/08/25 1429 Dictated By: Narendra Guaman MD 02/08/25 1337 Signed By: 02/08/25 1429[facility] Physician GroupFlgnetic resonance imaging reportOrdered By: Narendra Guaman on 34-71-3873Tnhhi reportCLEVELAND CLIN[facility] Main [place] [address] [place] [address] MRI Report Signed Patient: Anh Tejeda MR#: [id number] : 1950 Acct:[id number] Age/Sex: 74 / F ADM Date: 5 Loc: [facility] Room: Type: [facility] Attending Dr: Tessy Bruner MD Copies [...] disease L4-5 and L5-S1. Moderate disc disease H46-U9luz mild disc disease at L3-L4. The conus [...] severe facet arthropathy. Moderate central canal stenosis. Lnhj-uh-cuuufukp bilateral neural foraminal narrowing. Mild crowding of [...] Narendra Guaman M.D.02/08/2025 2:29 PM Dictation Location: [place] [address] Transcribed By: MT 02/08/25 7530 Dictated By: Narendra Guaman MD 02/08/25 3002 Signed By: 02/08/25 9665 [facility] Work Phone: cb W Auto Differential panel (Bld)on 01-06-2025 Basophils (Bld) [#/Vol]10*3/uLNormal<0.11C[facility] on above:Order Comment: Specimen Type: BLOOD SPECIMENOrdering Facility: [facility] Address:[address] [place], [place] [address]Performed By: #### 47791-3, 23518-7 ####[facility] LABCLIA [id number] [place], [place] [address]Aopkbbnnv/100 WBC (Bld)0.2 %NormalMcKitrick Hospital on above:Order Comment: Specimen Type: BLOOD SPECIMENOrdering Facility: [facility] Address:[address] [place], [place] [address]Performed By: #### 17287-3, 42587-3 ####[facility] LABCLIA [id number] [place] [address] Differential cell count method Nom (Bld)AutoNormalClevelDuke Health Comment on above:Order Comment: Specimen Type: BLOOD SPECIMENOrdering Facility: [facility] Address:[address] [place] [address] Performed By: #### 32443-5, 79276-0 ####[facility] LABCLIA [id number] [place], [place] [address]Uimmdgjtdwd (Bld) [#/Vol]0.11 10*3/uLNormal<0.46Mc[facility] Hospital on above:Order Comment: Specimen Type: BLOOD SPECIMENOrdering Facility: [facility] Address:[address] [place], [place] [address]Performed By: #### 31615- 0, 56632-8 ####[facility] LABCLIA [id number] [place], [place] [address]Bcvygiapwhl/100 WBC (Bld)2.0 %[facility] on above:Order Comment: Specimen Type: BLOOD SPECIMENOrdering Facility: [facility] Address:[address] [place], [place] [address]Performed By: #### 51865-4, 59739-5 ####[facility] LABIA [id number] [place] [address] Erythrocyte distribution width (RBC) [Ratio]15.8 %High11.5-15.0[facility] on above:Order Comment: Specimen Type: BLOOD SPECIMENOrdering Facility: [facility] Address:[address] [place], [place] [address]Performed By: #### 81314-0, 63805-7 ####[facility] LABIA [id number] [place], [place] [address]Vsljjdsbnt (Bld) [Volume fraction]32.1 %Low36.0-46.0[facility] on above: Order Comment: Specimen Type: BLOOD SPECIMENOrdering Facility: [facility] Address:[address] [place], [place] [address]Performed By: #### 73999- 0, 26227-7 ####[facility] LABIA [id number] [place], [place] [address]Waxjrynltd (Bld) [Mass/Vol]11.0 g/dLLow11.5-15.5 [facility] on above:Order Comment: Specimen Type: BLOOD SPECIMENOrdering Facility: [facility] Address:[address] [place], [place] [address]Performed By: #### 93386-0, 13941-5 ####[facility] LABIA [id number] [place], [place] [address]Nymzcvqa granulocytes (Bld) [#/Vol]10*3/uLNormal<0.10[facility] on above:Order Comment: Specimen Type: BLOOD SPECIMENOrdering Facility: [facility] Address:[address] [place] [address] Performed By: #### 40456-8, 93521-9 ####[facility] LABCLIA [id number] [place], [place] [address]Wpexvyzi granulocytes/100 WBC (Bld)0.4 %NormalMcKitrick Hospital on above: Order Comment: Specimen Type: BLOOD SPECIMENOrdering Facility: [facility] Address:[address] [place], [place] [address]Performed By: #### 49480- 0, 79387-0 ####[facility] LABCLIA [id number] [place], [place] [address]Uthfrqkniuc (Bld) [#/Vol]1.45 10*3/uLNormal 1.00-4.00[facility] on above:Order Comment: Specimen Type: BLOOD SPECIMENOrdering Facility: [facility] Address:[address] [place], [place] [address]Performed By: #### 13556-8, 08719-9 ####[facility] LABCLIA [id number] [place], [place] [address]Kimykzciawd/100 WBC (Bld)27.0 %NormalMcKitrick Hospital on above:Order Comment: Specimen Type: BLOOD SPECIMENOrdering Facility: [facility] Address:[address] [place], [place] [address]Performed By: #### 54134-5, 63394-1 ####[facility] LABCLIA [id number] [place], [place] [address]NAX (RBC) [Entitic mass]30.0 qtQpybsv28.0-34.0[facility] on above:Order Comment: Specimen Type: BLOOD SPECIMENOrdering Facility: [facility] Address:[address] [place], [place] [address]Performed By: #### 31882- 0, 99005-3 ####[facility] LABCLIA [id number] [place], [place] [address]SYNH (RBC) [Mass/Vol]34.3 g/dCYqcmoo56.5-36.0 [facility] on above:Order Comment: Specimen Type: BLOOD SPECIMENOrdering Facility: [facility] Address:[address] [place], [place] [address]Performed By: #### 98370-1, 92376-5 ####[facility] LABCLIA [id number] [place], [place] [address]KXT (RBC) [Entitic vol]87.5 yNOyauco50.0-100.0[facility] on above:Order Comment: Specimen Type: BLOOD SPECIMENOrdering Facility: [facility] Address:[address] [place], [place] [address]Performed By: #### 86779-6, 36509-7 ####[facility] LABCLIA [id number] [place], [place] [address]Wxtwclmny (Bld) [#/Vol]0.32 10*3/uLNormal <0.87[facility] on above:Order Comment: Specimen Type: BLOOD SPECIMENOrdering Facility: [facility] Address:[address] [place], [place] [address]Performed By: #### 22384-4, 83098-1 ####[facility] LABCLIA [id number] [place], [place] [address]Jwvljnlvm/100 WBC (Bld)5.9 %NormalMcKitrick Hospital on above:Order Comment: Specimen Type: BLOOD SPECIMENOrdering Facility: [facility] Address:[address] [place], [place] [address]Performed By: #### 76550-0, 77427-0 ####[facility] LABCLIA [id number] [place], [place] [address]Gojuxntdrmy (Bld) [#/Vol]3.47 10*3/uLNormal 1.45-7.50[facility] on above:Order Comment: Specimen Type: BLOOD SPECIMENOrdering Facility: [facility] Address:[address] [place], [place] [address]Performed By: #### 87895-3, 93647-9 ####[facility]ENTERZANDRA [facility] LABCLIA [id number] [place], [place] [address]Bhtqxqsxhub/100 WBC (Bld)64.5 %NormalMcKitrick Hospital on above:Order Comment: Specimen Type: BLOOD SPECIMENOrdering Facility: [facility] Address:[address] [place], [place] [address]Performed By: #### 60535-4, 43970-7 ####[facility] CENTERZANDRA [facility] LABIA [id number] [place], [place] [address]Kjwivprdx RBC (Bld) [#/Vol]10*3/uLNormal<0.01[facility] on above:Order Comment: Specimen Type: BLOOD SPECIMENOrdering Facility: [facility] Address:[address] [place], [place] [address]Performed By: #### 47643- 0, 62383-7 ####[facility]ENTERZANDRA [facility] LABIA [id number] [place], [place] [address]Rxsjcdemi RBC/100 WBC (Bld) [Ratio]0.0 /100 WBC NormalMcKitrick Hospital on above:Order Comment: Specimen Type: BLOOD SPECIMENOrdering Facility: [facility] Address:[address] [place], [place] [address]Performed By: #### 71095-6, 39715-2 ####[facility]ENTERZANDRA [facility] LABCLIA [id number] [place], [place] [address]Hgzjkqse mean volume (Bld) [Entitic vol]8.8 fLLow9.0-12.7CUniversity [facility] on above:Order Comment: Specimen Type: BLOOD SPECIMENOrdering Facility: [facility] Address:[address] [place], [place] [address]Performed By: #### 62549-8, 94289-3 ####[facility] LABCLIA [id number] [place], [place] [address]Kaypnszwi (Bld) [#/Vol]117 10*3/eHYgl888-758EsqiwyfavMcKitrick Hospital on above:Order Comment: Specimen Type: BLOOD SPECIMENOrdering Facility: [facility] Address:[address] [place], [place] [address]Performed By: #### 04897- 0, 39219-6 ####[facility] LABCLIA [id number] [place], [place] [address]EFZ (Bld) [#/Vol]3.67 10*6/uLLow3.90-5.20[facility] on above:Order Comment: Specimen Type: BLOOD SPECIMENOrdering Facility: [facility] Address:[address] [place], [place] [address]Performed By: #### 90055-8, 85176-9 ####[facility] [id number] [place], [place] [address]BPW (Bld) [#/Vol]5.38 10*3/uLNormal3.70-11.00[facility] on above:Order Comment: Specimen Type: BLOOD SPECIMENOrdering Facility: [facility] Address:[address] [place], [place] [address]Performed By: #### 08084-8, 29918-2 ####[facility] LABIA [id number] [place], [place] [address]ZDTUTBqt 00-25-1449VWUUSTFtjfm (SP) Office (HEMASA) ANH TEJEDA ([id number]) 1950 F Date Time Provider Department 01/06/25 2:30 PM DAKSHA BRIDGES During your visit today, we recorded the following information about you: Temperature Pulse Respiration Blood pressure 97.8 degrees 80/minute 18/minute 132/72 Weight 96.6 kg Daksha Bridges PA-C 01/06/2025 2:38 PM Signed Hematology Progress Note PATIENT NAME: Anh Tejeda CLINIC NO.: [id number] ATTENDING PHYSICIAN: Henry Walker MD DATE OF [...] murmurs, rubs, or ga (more content not included)...NormalKettering Health MiamisburgComprehensive metabolic 2000 panelon 10-63-5276Bjeiwyl [Mass/Vol]4.0 g/dLNormal3.9-4.9CThe [facility] Comment on above:Order Comment: Specimen Type: BLOOD SPECIMENOrdering Facility: [facility] Address:[address] [place] [address] Performed By: #### 48423-9 ####[facility] LABCLIA [id number] [place] [address] [place] [Catalytic activity/Vol]164 U/JCwau62-264TtriknsaeMcKitrick Hospital on above:Order Comment: Specimen Type: BLOOD SPECIMENOrdering Facility: [facility] Address:[address] [place] [address] Performed By: #### 52758-3 ####[facility] LABCLIA [id number] [place] [address] [place] ALT [Catalytic activity/Vol]18 U/LNormal7-38[facility] Northment on above:Order Comment: Specimen Type: BLOOD SPECIMENOrdering Facility: [facility] Address:[address] [place], [place] [address]Performed By: #### 64710-3 ####[facility] LABCLIA [id number] [place] [address] [place] AMERICAAnion gap [Moles/Vol] 11 mmol/LNormal8-15[facility] on above:Order Comment: Specimen Type: BLOOD SPECIMENOrdering Facility: [facility] Address:[address] [place], [place] [address]Performed By: #### 22059-6 ####[facility] LABCLIA [id number] [place] [address] [place] AMERICAAST [Catalytic activity/Vol]21 U/HQalhci51-99FeaymxmnbMcKitrick Hospital on above:Order Comment: Specimen Type: BLOOD SPECIMENOrdering Facility: [facility] Address:[address] [place], [place] [address]Performed By: #### 45101-1 ####[facility] LABCLIA [id number] [place] [address] [place] AMERICABilirubin [Mass/Vol]0.4 mg/dLNormal0.2-1.3CUniversity [facility] on above:Order Comment: Specimen Type: BLOOD SPECIMENOrdering Facility: [facility] Address:[address] [place], [place] [address]Performed By: #### [id number] ####[facility] LABCLIA [id number] [place] [address] [place] AMERICACalcium [Mass/Vol]9.4 mg/dLNormal8.5-10.2CThe [facility] Comment on above:Order Comment: Specimen Type: BLOOD SPECIMENOrdering Facility: [facility] Address:[address] [place] [address] Performed By: #### 45445-3 ####[facility] LABCLIA [id number] [place] [address] [place] Chloride [Moles/Vol]102 mmol/DWainti79-971XrpaegvxtMcKitrick Hospital on above:Order Comment: Specimen Type: BLOOD SPECIMENOrdering Facility: [facility] Address:[address] [place], [place] [address]Performed By: #### 80739-8 ####[facility] LABCLIA [id number] [place] [id number] [place] AMERICACO2 [Moles/Vol]29 mmol/UZlznck57-16NhiqihelkMcKitrick Hospital on above:Order Comment: Specimen Type: BLOOD SPECIMENOrdering Facility: [facility] Address:[address] [place], [place] [address]Performed By: #### 70571-0 ####[facility] LABIA [id number] [place] [address] [place] AMERICACreatinine [Mass/Vol]1.27 mg/dL High0.58-0.96[facility] on above:Order Comment: Specimen Type: BLOOD SPECIMENOrdering Facility: [facility] Address:[address] [place], [place] [address]Performed By: #### 14876-9 ####[facility] LABIA [id number] [place] [address] [place] AMERICACreatinine and Glomerular filtration rate.predicted panel (S/P/Bld)44 mL/min/1.73m???Low>=60[facility] on above:Order Comment: Specimen Type: BLOOD SPECIMENOrdering Facility: [facility] Address:[address] [place], [place] [address]Result Comment: Estimated Glomerular Filtration Rate (eGFR) is [...] not accurately reflect actual GFR.Performed By: #### 13864-7 ####[facility] LABIA [id number] [place] [address] [place] AMERICAGlucose [Mass/Vol]216 mg/dLHigh 74-99[facility] on above:Order Comment: Specimen Type: BLOOD SPECIMENOrdering Facility: [facility] Address:[address] [place], [place] [address]Result Comment: The Citizen [place] Diabetes Association (ADA) provides guidance for cutoff [...] Medical Care in Diabetes 2016, Citizen [place] Diabetes Association. Diabetes Care. 2016.39(Suppl 1).Performed By: #### 88555-8 ####[facility] LABIA [id number] [place] [address] [place] AMERICAPotassium [Moles/Vol]4.0 mmol/L Normal3.7-5.1CUniversity [facility]als [facility] on above:Order Comment: Specimen Type: BLOOD SPECIMENOrdering Facility: [facility] Address:[address] [place], [place] [address]Performed By: #### 23408-6 ####[facility] [id number] [place] [address] [place] AMERICAProtein [Mass/Vol]6.4 g/dLNormal6.3-8.0[facility] on above:Order Comment: Specimen Type: BLOOD SPECIMENOrdering Facility: [facility] Address:[address] [place], [place] [address]Performed By: #### 33106-3 ####[facility] LABIA [id number] [place] [address] [place] Sodium [Moles/Vol]142 mmol/NNvnjsb270-922ShcwyfqvaMcKitrick Hospital on above:Order Comment: Specimen Type: BLOOD SPECIMENOrdering Facility: [facility] Address:[address] [place], [place] [address]Performed By: #### 64969-4 ####[facility] LABIA [id number] [place] [id number] [place] AMERICAUrea nitrogen [Mass/Vol]31 mg/dLHigh7-21[facility] on above:Order Comment: Specimen Type: BLOOD SPECIMENOrdering Facility: [facility] Address:[address] [place], [place] [address]Performed By: #### 21079- 8 ####[facility] LABCLIA [id number] [place] [address] [place] AMERICAFerritin SerPl-Alleg[facility] Hospitalon 01-06-2025 Ferritin [Mass/Vol]449.0 ng/jULvyv10.7-205.1CUniversity Hospitals Conneaut [facility] on above:Order Comment: Specimen Type: BLOOD SPECIMEN [facility] Address: [address] [place], [place] [address]Performed By: #### 28772-2, 2276-4 #### [facility] CLIA [id number] [address] [place] [address] [place] AMERICAIron and Iron binding capacity panelon 12-20-5324Fvlt [Mass/Vol]58 ug/eIOdvniu42-179AksfyrauyMcKitrick Hospital on above:Order Comment: Specimen Type: BLOOD SPECIMEN [facility] Address: [address] [place], [place] [address]Performed By: #### 43126-9, 2276-4 #### [facility] CLIA [id number] [address] [place] [address] [place] AMERICAIron binding capacity [Mass/Vol]320 ug/nAHtvpap760-862QhyjoynqpMcKitrick Hospital on above:Order Comment: Specimen Type: BLOOD SPECIMEN [facility] Address: [address] [place], [place] [address]Performed By: #### 49468-7, 6-4 #### [facility] CLIA [id number] [address] [place] [address] [place] AMERICAIron/TIBC [Molar ratio]18.1 %Kwvpjg17.0-57.0[facility] on above:Order Comment: Specimen Type: BLOOD SPECIMEN [facility] Address: [address] [place], [place] [address]Performed By: #### 79297-6, 2276-4 #### [facility] CLIA [id number] [address] [place] [address] DESK [id number]ETRetics #on 01-06-2025 Reticulocytes (Bld) [#/Vol]0.86453 10*3/uLHigh0.018-0.100[facility] on above:Order Comment: Specimen Type: BLOOD SPECIMENOrdering Facility: [facility] Address:[address] [place], [place] [address]Performed By: #### 38920-7, 56264-8 ####[facility] LABCLIA [id number] [place], [place] [address]Xzoewxhipzoww (Bld) [#/Vol]on 68-32-2497Lluyylysqawpr/100 RBC (Bld)4.0 %High0.4-2.0[facility] on above:Order Comment: Specimen Type: BLOOD SPECIMENOrdering Facility: [facility] Address:[address] [place], [place] [address]Performed By: #### 13846-1, 23908-1 ####[facility] LABCLIA [id number] [place], [place] [address]QGRHci 59-52-9520SVMB Telephone (HEMASA) ANH TEJEDA ([id number]) 1950 F Date Time Provider Department 01/02/25 [...] BLOOD COUNT AND DIFFERENTIAL [SQCBCDIF] Order #: [id number] FUTURE FERRITIN [SQFERR] Order #: [id number] FUTURE IRON AND TIBC [SQIRON] Order #: [id number] FUTURE RETICULOCYTE COUNT [SQRETIC] Order #: [id number] FUTURE COMPREHENSIVE METABOLIC PANEL [SQCMP] Order #: [id number] FUTURE Prescriptions as of 01/02/2025 - diphenhydrAMINE [...] 01/29/2024 Encounter Status:Closed by VERNON HENRIQUEZ on 01/02/[address] with Estimated Average Gluon 47-69-1184Gagkerj [Mass/Vol]212 mg/dL NormalThe [facility] Physician GroupComment on above:Result Comment: PERFORMED BY: [place] [address] PATHOLOGIST AUTHOR AGENT VEL GARCIA M.D.Performed By: #### MG, CMP, CBC, LIPID #### [facility] [address] [place] [address] AGWAqT0v (Bld) [Mass fraction]9.0 %High4.3-5.6The [facility] Physician GroupComment on above:Result Comment: Increased risk for diabetes: 5.7 - 6.4 diabetes: >6.4 glycemic control for adults with diabetes: <7.0Performed By: #### MG, CMP, CBC, LIPID #### [facility] [address] [place] [address] USAAlanine aminotransferase [Enzymatic activity/volume] in Serum or PlasmaOrdered By: Marilyn Stewart on 82-34-3269CDJ [Catalytic activity/Vol] Alanine aminotransferase [Enzymatic activity/volume] in Serum or Plasma [facility] HospitalAlbumin [Mass/volume] in Serum or Plasma by Bromocresol green (BCG) dye binding methoOrdered By: Marilyn Stewart on 12-28-2024 Albumin BCG dye [Mass/Vol]Albumin [Mass/volume] in Serum or Plasma by Bromocresol green (BCG) dye binding metho3.5-5.7FJoint Township District Memorial HospitalAlkaline phosphatase [Enzymatic activity/volume] in Serum or PlasmaOrdered By: Marilyn Stewart on 04-21-6983FZJ [Catalytic activity/Vol]Alkaline phosphatase [Enzymatic activity/volume] in Serum or PcvgbjAilr79-288PftjhdljxMedina HospitalAppearance of UrineOrdered By: Marilyn Stewart on 78-83-0793Dzewrvmwkg (U)Urine appearanceAbnormalClearMedina HospitalAspartate aminotransferase [Enzymatic activity/volume] in Serum or PlasmaOrdered By: Marilyn Stewart on 52-91-4285TFK [Catalytic activity/Vol]Aspartate aminotransferase [Enzymatic activity/volume] in Serum or Blehrb47-99BnsidjadaMedina HospitalBacteria [Presence] in Urine by AutomatedOrdered By: Marilyn Stewart on 24-86-5045Bimzdrnl Auto Ql (U)Bacteria [Presence] in Urine by AutomatedNone [facility] Memorial HospitalBilirubin Test strip Ql (U)Ordered By: Marilyn Stewart on 46-98-6000Ctheixgqw Ql (U)Bilirubin.total [Presence] in Urine by Test stripNegativeMedina HospitalBilirubin.total [Mass/volume] in Serum or PlasmaOrdered By: Marilyn Stewart 88-81-7129Ruvoyowkc [Mass/Vol] Bilirubin.total [Mass/volume] in Serum or Plasma0.3-1.0Medina HospitalBlood estimated average glucose determination by estimation from glycated hemoglobinOrdered By: Vinay Matta on 60-19-8457Zjvhuql glucose Estimated from glycated hemoglobin (Bld) [Mass/Vol]Glucose mean value [Mass/volume] in Blood Estimated from glycated hemoglobinMedina HospitalCalcium [Mass/volume] in Serum or PlasmaOrdered By: Marilyn Stewart 44-99-6936Dzbjuqh [Mass/Vol]Calcium [Mass/volume] in Serum or PlasmaLow8.6-10.3 [facility] HospitalCarbon dioxide, total [Moles/volume] in Serum or PlasmaOrdered By: Marilyn Stewart on 65-93-9150GF7 [Moles/Vol]Carbon dioxide, total [Moles/volume] in Serum or Mejxho01.0-31.0[facility] HospitalChloride [Moles/volume] in Serum or PlasmaOrdered By: Marilyn Stewart on 07-98-9019Cztdvofo [Moles/Vol]Chloride [Moles/volume] in Serum or Cyuyoi35-145 [facility] HospitalCholesterol [Mass/volume] in Serum or Plasma Ordered By: Marilyn Stewart on 88-22-1107Epukrixxjof [Mass/Vol]Cholesterol [Mass/volume] in Serum or KdleldFci245-215FqtxecowfMedina Hospital Comment on above:Chol less than 200 mg/dl low riskChol 201-239 mg/dl borderline riskChol 240 mg/dl and greater high riskCholesterol in HDL [Mass/volume] in Serum or PlasmaOrdered By: Marilyn Stewart on 60-69-6512Kzczotbbkmz in HDL [Mass/Vol]Serum or plasma high density lipoprotein (HDL) cholesterol measurement 23-92Medina HospitalComment on above:HDL CHOL ATP-III CLASSIFICATION Cardiovascular RiskHDL > or equal to 60 mg/dL LOWHDL < 40 mg/dL HIGHCholesterol in LDL Calc [Mass/Vol]Ordered By: Marilyn Stewart on 12-28-2024 Cholesterol in LDL [Mass/Vol]Cholesterol in LDL [Mass/volume] in Serum or Plasma by calculation0-100Medina HospitalComment on above:LDL ATP III CLASSIFICATIONLDL less than 100 mg/dL OptimalLDL 100-129 mg/dL Near or above ehqmsdaYBY258-876 mg/dL Borderline highLDL 160-189 mg/dL HighLDL greater than 189 mg/dL Very highCholesterol in VLDL Calc [Mass/Vol]Ordered By: Marilyn Stewart on 17-15-0990Elnpdxtaztb in VLDL [Mass/Vol]Cholesterol in VLDL [Mass/volume] in Serum or Plasma by calculationMedina HospitalColor Auto (U) Ordered By: Marilyn Stewart on 58-85-9368Hvgvf (U)Color of Urine by AutoYellow Medina HospitalComprehensive Metabolic Panelon 12-28-2024 Albumin [Mass/Vol]3.8 g/dLNormal3.5-5.7The [facility] Physician GroupComment on above:Performed By: #### MG, CMP, CBC, LIPID #### [facility] [address] [place] [id number] USAAlbumin/Globulin [Mass ratio]1.8 {ratio}NormalThe [facility] Hospital Physician GroupComment on above:Performed By: #### MG, CMP, CBC, LIPID #### [facility] [address] [place] [id number] USAALP [Catalytic activity/Vol]130 U/RIkrt22-987Ehi [facility] Physician GroupComment on above:Performed By: #### MG, CMP, CBC, LIPID #### [facility] [address] [place] [address] USAALT [Catalytic activity/Vol]19 U/LNormal7-52The [facility] Physician GroupComment on above:Performed By: #### MG, CMP, CBC, LIPID #### [facility] [address] [place] [address] USAAnion gap [Moles/Vol]11.6 mmol/LNormal6.0-15.0The [facility] Physician GroupComment on above:Performed By: #### MG, CMP, CBC, LIPID #### [facility] [address] [place] [id number] USAAST [Catalytic activity/Vol]24 U/TBiqcwa90-63Itf [facility] Physician GroupComment on above:Performed By: #### MG, CMP, CBC, LIPID #### [facility] [address] [place] [address] USABilirubin [Mass/Vol]0.7 mg/dLNormal0.3-1.0The [facility] Physician GroupComment on above:Performed By: #### MG, CMP, CBC, LIPID #### [facility] [address] [place] [address] USACalcium [Mass/Vol]8.5 mg/dLLow8.6-10.3The [facility] Physician GroupComment on above:Performed By: #### MG, CMP, CBC, LIPID #### [facility] [address] [place] [address] USAChloride [Moles/Vol]102 mmol/XUzvnva09-843Kkf [facility] Physician GroupComment on above:Performed By: #### MG, CMP, CBC, LIPID #### [facility] [address] [place] [address] USACO2 [Moles/Vol]29.4 mmol/XEqdxsn59.0-31.0The [facility] Physician GroupComment on above:Performed By: #### MG, CMP, CBC, LIPID #### [facility] [address] [place] [address] USACreatinine [Mass/Vol]1.32 mg/dLHigh0.60-1.20The [facility] Physician GroupComment on above:Performed By: #### MG, CMP, CBC, LIPID #### [facility] [address] [place] [address] USAEstimated GFR42.104 mL/MinNoAtrium Health Union Physician GroupComment on above:Performed By: #### MG, CMP, CBC, LIPID #### [facility] [address] [place] [address] USAGlobulin (S) [Mass/Vol]2.1 g/dLNoAtrium Health Union Physician GroupComment on above:Performed By: #### MG, CMP, CBC, LIPID #### [facility] [address] [place] [address] USAGlucose [Mass/Vol]182 mg/aEYups78-589Ffu [facility] Physician GroupComment on above:Result Comment: Random Glucose Reference Range is dependent on time and content of last meal. Glucose of more than 200 mg/dL in a nonstressed, ambulatory subject supports the diagnosis of Diabetes Mellitus. ADA recommended reference rangePerformed By: #### MG, CMP, CBC, LIPID #### [facility] [address] [place] [address] USAPotassium [Moles/Vol]4.0 mmol/LNormal3.5-5.1The [facility] Physician GroupComment on above:Performed By: #### MG, CMP, CBC, LIPID #### [facility] [address] [place] [address] USAProtein [Mass/Vol]5.9 g/dLLow6.4-8.9The [facility] Physician GroupComment on above:Performed By: #### MG, CMP, CBC, LIPID #### [facility] [address] [place] [address] USASodium [Moles/Vol]139 mmol/MAddsxo274-688Ovl [facility] Physician GroupComment on above:Performed By: #### MG, CMP, CBC, LIPID #### [facility] [address] [place] [address] USAUrea nitrogen [Mass/Vol]29 mg/dLHigh7-25The [facility] Physician GroupComment on above:Performed By: #### MG, CMP, CBC, LIPID #### [facility] [address] [place] [id number] USACreatinine [Mass/volume] in Serum or PlasmaOrdered By: Marilyn Stewart on 44-12-3705Pdgisaxcfl [Mass/Vol]Creatinine [Mass/volume] in Serum or PlasmaHigh0.60-1.20Medina HospitalCreatinine [Mass/volume] in UrineOrdered By: Marilyn Stewart on 08-62-5561Rrvyuvfpkx (U) [Mass/Vol]Creatinine [Mass/volume] in UrineMedina HospitalComment on above:No reference range establishedDipstick and Microscopicon 20-20-8154Wjxiggqfuj (U) CloudyCritically abnormalClearThe [facility] Physician GroupComment on above: Order Comment: A1C IS NOT DUE UNTIL OCTOBER.Performed By: #### MG, CMP, CBC, LIPID #### [facility] [address] [place] [id number] USABacteria,UrineRareNormalNone SeenJay Hospital Physician GroupComment on above:Order Comment: A1C IS NOT DUE UNTIL OCTOBER.Performed By: #### MG, CMP, CBC, LIPID #### [facility] [address] [place] [id number] USABilirubin,UrineNegativeNormalNegativeThe [facility] Physician GroupComment on above:Order Comment: A1C IS NOT DUE UNTIL OCTOBER. Performed By: #### MG, CMP, CBC, LIPID #### [place] [address] USAColor (U)Light-YellowNormalYellowThe [facility] Physician GroupComment on above:Order Comment: A1C IS NOT DUE UNTIL OCTOBER.Performed By: #### MG, CMP, CBC, LIPID #### [place] [address] USAGlucose Ql (U)50 mg/dLHighNoalThWeiser Memorial Hospital Physician GroupComment on above:Order Comment: A1C IS NOT DUE UNTIL OCTOBER.Performed By: #### MG, CMP, CBC, LIPID #### [place] [address] USAHyaline Casts,UrineNoneNormal0-8The [facility] Physician GroupComment on above:Order Comment: A1C IS NOT DUE UNTIL OCTOBER.Performed By: #### MG, CMP, CBC, LIPID #### [place] [address] USAKetones Ql (U)NegativeNormalNegativeJay Hospital Physician GroupComment on above:Order Comment: A1C IS NOT DUE UNTIL OCTOBER. Performed By: #### MG, CMP, CBC, LIPID #### [place] [address] USALeukocyte esterase Test strip Ql (U)NegativeNormalNegative The [facility] Physician GroupComment on above:Order Comment: A1C IS NOT DUE UNTIL OCTOBER.Performed By: #### MG, CMP, CBC, LIPID #### [place] [address] USAMucus,UrineRareNormalThe [facility] Physician GroupComment on above:Order Comment: A1C IS NOT DUE UNTIL OCTOBER.Result Comment: PERFORMED BY: [place] [address] PATHOLOGIST AUTHOR AGENT VEL GARCIA M.D.Performed By: #### MG, CMP, CBC, LIPID #### [place] [address] USANitrite,UrinePositiveHighNegativeThe [facility] Physician GroupComment on above:Order Comment: A1C IS NOT DUE UNTIL OCTOBER.Performed By: #### MG, CMP, CBC, LIPID #### [facility] [address] [place] [address] USAOccult Blood,UrineNegativeNormalNegativeThe [facility] Physician GroupComment on above:Order Comment: A1C IS NOT DUE UNTIL OCTOBER. Performed By: #### MG, CMP, CBC, LIPID #### [facility] [address] [place] [address] USApH (U)5.5 [pH]Normal5.0-9.0The [facility]ician Group Comment on above:Order Comment: A1C IS NOT DUE UNTIL OCTOBER.Performed By: #### MG, CMP, CBC, LIPID #### [facility] [address] [place] [address] USAProtein,UrineNegativeNormalNegativeThe [facility] Physician GroupComment on above:Order Comment: A1C IS NOT DUE UNTIL OCTOBER.Performed By: #### MG, CMP, CBC, LIPID #### [facility] [address] [place] [address] USARBC,Csleq9-1Dbuvvb9-2Dvz [facility] Physician GroupComment on above:Order Comment: A1C IS NOT DUE UNTIL OCTOBER.Performed By: #### MG, CMP, CBC, LIPID #### [facility] [address] [place] [address] USASpecificy Rule,Urine1.949Ovfnsc9.001-1.030The [facility] Physician GroupComment on above:Order Comment: A1C IS NOT DUE UNTIL OCTOBER. Performed By: #### MG, CMP, CBC, LIPID #### [facility] [address] [place] [id number] USASquamous Epithelial Cell,Zkqcq6-1Xqqx3-5Aql [facility] Physician GroupComment on above:Order Comment: A1C IS NOT DUE UNTIL OCTOBER. Performed By: #### MG, CMP, CBC, LIPID #### [facility] [address] [place] [address] USAUrobilinogen,UrineNormalNormalNormalThe [facility] Physician GroupComment on above:Order Comment: A1C IS NOT DUE UNTIL OCTOBER. Performed By: #### MG, CMP, CBC, LIPID #### [facility] [address] [place] [address] USAWBC,Mreev6-0Peog7-2Sqm [facility] Physician GroupComment on above:Order Comment: A1C IS NOT DUE UNTIL OCTOBER.Performed By: #### MG, CMP, CBC, LIPID #### [facility] [address] [place] [address] USAEpithelial cells.squamous [#/area] in Urine sediment by Automated countOrdered By: Marilyn Smithr on 51-51-6171Hzsbawocst cells.squamous Auto (Urine sed) [#/Area]Epithelial cells.squamous [#/area] in Urine sediment by Automated countHigh0-2FJoint Township District Memorial HospitalErythrocyte distribution width Auto (RBC) [Ratio]Ordered By: Marilyn Terry on 42-40-4720Zcegpdynxgm distribution width (RBC) [Ratio]Erythrocyte distribution width [Ratio] by Automated kmrowGqkk54.9-15.3FJoint Township District Memorial HospitalErythrocytes [#/area] in Urine sediment by Automated countOrdered By: Marilyn Terry on 45-60-3953FBK Auto (Urine sed) [#/Area]Erythrocytes [#/area] in Urine sediment by Automated count0-4FJoint Township District Memorial HospitalFerritinon 12-28-2024 Ferritin [Mass/Vol]398.3 ng/cVFsgf80.0-306.8The [facility] Physician GroupComment on above:Performed By: #### MG, CMP, CBC, LIPID #### [facility] [address] [place] [address] USAFerritin [Mass/volume] in Serum or PlasmaOrdered By: Marilyn Terry on 38-58-2189Jdmsknap [Mass/Vol]Ferritin [Mass/volume] in Serum or Plasma High11.0-306.8Medina HospitalGlobulin Calc (S) [Mass/Vol] Ordered By: Marilyn Terry on 42-31-9584Gfvuamkj (S) [Mass/Vol]Serum globulin measurement by calculation (mass/volume)Medina HospitalGlucose [Mass/volume] in Serum or PlasmaOrdered By: Marilyn Stewart on 63-14-4616Oorvbkg [Mass/Vol]Glucose [Mass/volume] in Serum or VrgjsvCytb53-084FkumsvhxqMedina HospitalComment on above:ADA recommended reference rangeRandom Glucose Reference Range is dependent on time and content of last meal. Glucose of more than 200 mg/dL in a nonstressed, ambulatory subject supports the diagnosisof Diabetes Mellitus.Glucose [Mass/volume] in Urine by Test stripOrdered By: Marilyn Stewart on 54-23-3320Hqtrtbo Test strip (U) [Mass/Vol]Glucose [Mass/volume] in Urine by Test stripHighNormalMedina HospitalHematocrit Auto (Bld) [Volume fraction]Ordered By: Marilyn Stewart on 39-51-2156Gocgktcnyx (Bld) [Volume fraction]Hematocrit [Volume Fraction] of Blood by Automated countLow 34.0-46.4FJoint Township District Memorial HospitalHemoglobin A1c/Hemoglobin.total in BloodOrdered By: Vinay Matta on 22-03-9371SwE2m (Bld) [Mass fraction] Hemoglobin A1c percentageHigh4.3-5.6FJoint Township District Memorial HospitalComment on above:Increased risk for diabetes: 5.7 - 6.4diabetes: >6.4glycemic control for adults with diabetes: <7.0Hemoglobin Test strip Ql (U)Ordered By: Marilyn Stewart on 03-65-7231Kovrufldpy Ql (U)Hemoglobin [Presence] in Urine by Test strip [facility] HospitalHemoglobin [Mass/volume] in Blood Ordered By: Marilyn Stewart on 54-68-1857Baiaszoxmh (Bld) [Mass/Vol]Hemoglobin [Mass/volume] in CqqieJjm88.8-15.4FJoint Township District Memorial HospitalHemogram CBC Without Diffon 16-37-1693Izqolatkifc distribution width (RBC) [Ratio]16.5 %High 11.9-15.3The [facility] Physician GroupComment on above:Performed By: #### MG, CMP, CBC, LIPID #### [place] [address] USAHematocrit (Bld) [Volume fraction]31.9 %Low34.0-46.4The [facility] Physician GroupComment on above:Performed By: #### MG, CMP, CBC, LIPID #### [place] [address] USAHemoglobin (Bld) [Mass/Vol]11.4 g/dLLow11.8-15.4The [facility] Physician GroupComment on above:Performed By: #### MG, CMP, CBC, LIPID #### [address]H (RBC) [Entitic mass]30.3 jtUzzkyg39.7-34.3The [facility] Physician GroupComment on above:Performed By: #### MG, CMP, CBC, LIPID #### [place] [address] USAMCV (RBC) [Entitic vol]85.1 hPDlyyyy12-114Hgn [facility] Physician GroupComment on above:Performed By: #### MG, CMP, CBC, LIPID #### [place] [address] USAMean Corpuscular HGB Conc35.6 g/pRNpog61.0-35.0The [facility] Physician GroupComment on above:Performed By: #### MG, CMP, CBC, LIPID #### [place] [address] USAPlatelet mean volume (Bld) [Entitic vol]6.9 fLNormal 6.3-10.7The [facility] Physician GroupComment on above:Result Comment: PERFORMED BY: [place] [address] PATHOLOGIST AUTHOR AGENT VEL GARCIA M.D.Performed By: #### MG, CMP, CBC, LIPID #### [place] [address] USAPlatelets (Bld) [#/Vol]148 10*3/nLZnk423-996Cod [facility] Physician GroupComment on above:Performed By: #### MG, CMP, CBC, LIPID #### [place] [address] USARBC (Bld) [#/Vol]3.75 10*6/uLNormal3.60-5.00The [facility] Physician GroupComment on above:Performed By: #### MG, CMP, CBC, LIPID #### [facility] [address] [place] [address] USAWBC (Bld) [#/Vol]4.5 10*3/uLNormal3.8-11.6The [facility] Physician GroupComment on above:Performed By: #### MG, CMP, CBC, LIPID #### [facility] [address] [place] [address] USAHyaline casts [#/area] in Urine sediment by Automated countOrdered By: Marilyn Stewart on 86-35-4146Owzaxbx casts Auto (Urine sed) [#/Area]Hyaline casts [#/area] in Urine sediment by Automated count0-8Medina HospitalIron [Mass/volume] in Serum or PlasmaOrdered By: Marilyn Stewart on 56-02-2710Nncj [Mass/Vol]Iron [Mass/volume] in Serum or Fkelis57-926 Medina HospitalIron and TIBC Profileon 12-28-2024% Iron Mmyqxkrpna28.1 %Ovdwzt05-18Uxj [facility] Physician GroupComment on above: Performed By: #### MG, CMP, CBC, LIPID #### [place] [address] USAIron [Mass/Vol]90 ug/uHGjoicj84-947Jca [facility] Physician GroupComment on above:Performed By: #### MG, CMP, CBC, LIPID #### [place] [address] USATotal Iron Binding Hhgvpncp131 ug/aYCdpgjm934-558Wrn [facility] Physician GroupComment on above:Performed By: #### MG, CMP, CBC, LIPID #### [place] [address] USATransferrin [Mass/Vol]256 mg/rVQxnlep340-346Pfq [facility] Physician GroupComment on above:Performed By: #### MG, CMP, CBC, LIPID #### [facility] [address] [place] [address] USAKetones Test strip Ql (U)Ordered By: Marilyn Stewart on 25-52-8895Dylyget Ql (U)Ketones [Presence] in Urine by Test stripNegative Medina HospitalLeukocyte esterase [Presence] in Urine by Test stripOrdered By: Marilyn Stewart on 59-16-1889Uqfpepwps esterase Test strip Ql (U) Leukocyte esterase [Presence] in Urine by Test stripNegativeMedina HospitalLeukocytes [#/area] in Urine sediment by Automated countOrdered By: Marilyn Stewart on 30-81-3378MLO Auto (Urine sed) [#/Area]Leukocytes [#/area] in Urine sediment by Automated countHigh0-4FJoint Township District Memorial Hospital Leukocytes [#/volume] corrected for nucleated erythrocytes in Blood by Automated counOrdered By: Marilyn Stewart on 32-91-9659HEH corrected for nucl RBC Auto (Bld) [#/Vol]Leukocytes [#/volume] corrected for nucleated erythrocytes in Blood by Automated coun3.8-11.6FJoint Township District Memorial HospitalLipid Panelon 12-28-2024 Cholesterol [Mass/Vol]107 mg/mUXzy622-224Ocl [facility] Physician GroupComment on above:Result Comment: Chol less than 200 mg/dl low risk Chol 201-239 mg/dl borderline risk Chol 240 mg/dl and greater high riskPerformed By: #### MG, CMP, CBC, LIPID #### [facility] [address] [place] [address] USACholesterol in HDL [Mass/Vol]38 mg/wNXauwrg48-22Gzv [facility] Physician GroupComment on above:Result Comment: HDL CHOL ATP-III CLASSIFICATION Cardiovascular Risk HDL > or equal to 60 mg/dL LOW HDL < 40 mg/dL HIGHPerformed By: #### MG, CMP, CBC, LIPID #### [facility] [address] [place] [address] USACholesterol.total/Cholesterol in HDL [Mass ratio]2.8 {ratio}Normal<5.0The [facility] Physician GroupComment on above:Performed By: #### MG, CMP, CBC, LIPID #### [facility] [address] [place] [id number] USALDL Cholesterol,Pqybtdwlrl42 mg/dLNormal0-100The [facility] Physician GroupComment on above:Result Comment: LDL ATP III CLASSIFICATION LDL less than 100 mg/dL Optimal LDL 100-129 mg/dL Near or above optimal LDL 130-159 mg/dL Borderline high LDL 160-189 mg/dL High LDL greater than 189 mg/dL Very highPerformed By: #### MG, CMP, CBC, LIPID #### [facility] [address] [place] [id number] USATriglyceride w/Yiivsl834 mg/dLNormal0-149The [facility] Physician GroupComment on above:Result Comment: TRIG ATP III CLASSIFICATION TRIG less than 150 mg/dL Normal TRIG 150-199 mg/dL Borderline high TRIG 200-500 mg/dL High TRIG greater than 500 mg/dL Very high Standard traceable to the Center for Disease Conrtrol and Prevention (CDC) test method.Performed By: #### MG, CMP, CBC, LIPID #### [facility] [address] [place] [id number] USAVLDL WRMZZFYTTGI91 mg/dLNormalThe [facility] Physician GroupComment on above:Performed By: #### MG, CMP, CBC, LIPID #### [facility] [address] [place] [id number] [facility] Auto (RBC) [Entitic mass]Ordered By: Marilyn Stewart on 76-09-0671CRY (RBC) [Entitic mass]MCH [Entitic mass] by Automated count24.7-34.3 [facility] Auto (RBC) [Mass/Vol]Ordered By: Mrailyn Terry on 12-18-9563VSBC (RBC) [Mass/Vol]MCHC [Mass/volume] by Automated count High32.0-35.0[facility] Auto (RBC) [Entitic vol] Ordered By: Marilyn Terry on 65-99-6087IHD (RBC) [Entitic vol]MCV [Entitic volume] by Automated yywne17-892WfgtsxpsiMedina HospitalMM screening mammo BI w/CADon 64-27-2652XY screening mammo BI w/CADCLEVELAND CLINIC [facility] [place] [address] [place], [place] [id number] Mammography Report Signed Patient: Anh Tejeda MR#: [id number] : 1950 Acct:[id number] Age/Sex: 73 / F ADM Date: 12/28/24 Loc: [place] Room: Type: [facility] Attending Dr: Referral Self Copies to: [...] Sharad Robles M.D.12/28/2024 12:10 PM Dictation Location: [facility] Transcribed By: [facility] 12/28/24 1210 Dictated By: Sharad Robles DO 12/28/24 1204 Signed By: 12/28/24 1210NormOrlando VA Medical Center Physician GroupMagnesiumon 26-40-6006Gutykbcgf [Mass/Vol]1.2 mg/dLLow1.9-2.7The [facility] Physician GroupComment on above: Performed By: #### MG, CMP, CBC, LIPID #### [facility] [address] [place] [address] USAMagnesium [Mass/volume] in Serum or PlasmaOrdered By: Marilyn Stewart on 89-17-5867Cydzmfcfj [Mass/Vol]Magnesium [Mass/volume] in Serum or PlasmaLow1.9-2.7FJoint Township District Memorial HospitalMammography reportOrdered By: Sharad Robles on 42-44-7968Jqbrafewou imaging studyCLEVELAND CLINIC [facility]INA [facility]ITAL [facility] [place] [address] [place] [address] Mammography Report Signed Patient: Anh Tejeda MR#: [id number] : 1950 Acct:[id number] Age/Sex: 73 / F ADM Date: 5 Loc: [place] Room: Type: [facility] CL Attending Dr: Referral Self Copies to: [...] Sharad Robles M.D.12/28/2024 12:10 PM Dictation Location: [facility] Transcribed By: [facility] 12/28/24 1210 Dictated By: Sharad Robles DO 12/28/24 1204 Signed By: 12/28/24 1210 Medina HospitalMucus [Presence] in Urine by AutomatedOrdered By: Marilyn Stewart on 48-66-8215Blyge Auto Ql (U)Mucus [Presence] in Urine by AutomatedMedina HospitalNitrite Test strip Ql (U)Ordered By: Marilyn Stewart on 32-38-3309Yclxfyu Ql (U)Nitrite [Presence] in Urine by Test strip HighNegativeMedina HospitalNo Panel InformationOrdered By: Marilyn Stewart on 94-44-7576Qpqtrchww GFR (CKD-EPI)42.104 mL/MinMedina HospitalPharmacy Creatinine Clearance (ChemN/AFJoint Township District Memorial HospitalParathyrin.intact [Mass/volume] in Serum or PlasmaOrdered By: Marilyn Stewart on 96-57-0182Ldeajvajjn.intact [Mass/Vol]Parathyrin.intact [Mass/volume] in Serum or Wdfukr68-35ZcbjqlwijMedina HospitalParathyroid Hormone Intact on 46-68-0895Ellujdklsrc Hormone Pnubly13.7 pg/gRSbqteg70-26Ngn [facility] Physician GroupComment on above:Result Comment: PERFORMED BY: [place] [address] PATHOLOGIST AUTHOR AGENT VEL GARCIA M.D.Performed By: #### MG, CMP, CBC, LIPID #### [facility] [address] [place] [address] USAPhosphate [Mass/volume] in Serum or PlasmaOrdered By: Marilyn Stewart on 39-77-6376Kznssaagy [Mass/Vol]Phosphate [Mass/volume] in Serum or Plasma2.5-4.5FJoint Township District Memorial HospitalPlatelet mean volume Auto (Bld) [Entitic vol]Ordered By: Marilyn Stewart on 10-83-4319Kvgnbueu mean volume (Bld) [Entitic vol]Platelet mean volume [Entitic volume] in Blood by Automated count 6.3-10.7FJoint Township District Memorial HospitalPlatelets Auto (Bld) [#/Vol]Ordered By: Marilyn Stewart on 28-04-8645Njenyznsw (Bld) [#/Vol]Platelets [#/volume] in Blood by Automated bbvtnExa923-411JfhkqtnyjMedina HospitalPotassium [Moles/volume] in Serum or PlasmaOrdered By: Marilyn Stewart on 86-29-1731Pzaxslqpi [Moles/Vol]Potassium [Moles/volume] in Serum or Plasma3.5-5.1FJoint Township District Memorial HospitalProtein Creat Ratio Ur Randomon 69-41-7075Msdtwxqrwz, Urine (Random)74.00 mg/dLNormOrlando VA Medical Center Physician [facility]mmc GrenadaComment on above:Result Comment: No reference range establishedPerformed By: #### MG, CMP, CBC, LIPID #### [facility] [address] [place] [address] USAProtein (U) [Mass/Vol]23 mg/dLHigh0-9The [facility] Physician GroupComment on above:Performed By: #### MG, CMP, CBC, LIPID #### [facility] [address] [place] [address] USAUrine Protein/Creatinine Pacpv535 mg/g{Cre}High0-200The [facility] Physician Ummc GrenadaComment on above:Result Comment: PERFORMED BY: [place] [address] PATHOLOGIST AUTHOR AGENT VEL GARCIA M.D.Performed By: #### MG, CMP, CBC, LIPID #### [facility] [address] [place] [address] USAProtein Test strip (U) [Mass/Vol]Ordered By: Marilyn Terry on 25-41-3857Bvtvmwk (U) [Mass/Vol]Protein [Mass/volume] in Urine by Test strip NegativeMedina HospitalProtein [Mass/volume] in Serum or PlasmaOrdered By: Marilyn Terry on 52-76-1677Ohqcvqd [Mass/Vol]Protein [Mass/volume] in Serum or PlasmaLow6.4-8.9[facility] Protein [Mass/volume] in UrineOrdered By: Marilyn Terry on 87-42-1610Rdbrdmd (U) [Mass/Vol]Protein [Mass/volume] in UrineHigh0-9[facility] RBC Auto (Bld) [#/Vol]Ordered By: Marilyn Terry on 88-27-1121AON (Bld) [#/Vol] Erythrocytes [#/volume] in Blood by Automated count3.60-5.00Medina HospitalRenal Function Panelon 57-05-9790Ddologkje [Mass/Vol]4.1 mg/dL Normal2.5-4.5The [facility] Physician GroupComment on above:Performed By: #### MG, CMP, CBC, LIPID #### [facility] [address] [place] [address] USASerum or plasma albumin/globulin mass ratioOrdered By: Marilyn Stewart on 03-46-5670Cnbqwob/Globulin [Mass ratio]Serum or plasma albumin/globulin mass ratioMarymount Hospitalerum or plasma anion gap determinationOrdered By: Marilyn Stewart on 02-38-1093Ygfxy gap [Moles/Vol]Serum or plasma anion gap determination6.0-15.0Marymount Hospitalerum or plasma iron binding capacity measurement (mass/volume) Ordered By: Marilyn Stewart on 00-07-4439Wyqn binding capacity [Mass/Vol]Iron binding capacity [Mass/volume] in Serum or Cyoptc379-946KhdvvagwuMarymount Hospitalerum or plasma iron saturation measurement (mass fraction)Ordered By: Marilyn Stewart on 00-31-0956Frjv saturation [Mass fraction]Iron saturation [Mass Fraction] in Serum or Vdxgnp09-47WpjpmrkcpMarymount Hospitalerum or plasma total cholesterol/high density lipoprotein (HDL) cholesterol mass rat Ordered By: Marilyn Stewart on 36-00-7687Ajwafqcgqgn.total/Cholesterol in HDL [Mass ratio]Serum or plasma total cholesterol/high density lipoprotein (HDL) cholesterol mass rat<5.0Marymount Hospitalodium [Moles/volume] in Serum or PlasmaOrdered By: Marilyn Stewart on 85-68-1089Xnvatv [Moles/Vol]Sodium [Moles/volume] in Serum or Vkqclv497-383GptlmenjdMedina Hospital Specific gravity Test strip (U) [Rel density]Ordered By: Marilyn Stewart on 53-74-0320Zymmwszb gravity (U) [Rel density]Specific gravity of Urine by Test strip1.001-1.030Medina HospitalTransferrin [Mass/volume] in Serum or PlasmaOrdered By: Marilyn Stewart on 12-48-2960Cxmgphzahhq [Mass/Vol] Transferrin [Mass/volume] in Serum or Litsnp618-890MkxykpxlpMedina HospitalTriglyceride [Mass/volume] in Serum or PlasmaOrdered By: Marilyn Stewart on 27-59-2907Mfntebpfchtq [Mass/Vol]Triglyceride [Mass/volume] in Serum or Plasma 0-149Medina HospitalComment on above:TRIG ATP III CLASSIFICATIONTRIG less than 150 mg/dL NormalTRIG 150-199 mg/dL Borderline highTRIG 200-500 mg/dL High TRIG greater than 500 mg/dL Very highStandard traceable to the Center for Disease Conrtrol and Prevention (CDC) test method. Urate [Mass/volume] in Serum or PlasmaOrdered By: Marilyn Stewart on 78-92-6907Crbrw [Mass/Vol]Urate [Mass/volume] in Serum or Plasma2.3-6.6FJoint Township District Memorial HospitalUrea nitrogen [Mass/volume] in Serum or PlasmaOrdered By: Marilyn Stewart on 64-63-2357Glsk nitrogen [Mass/Vol]Urea nitrogen [Mass/volume] in Serum or PlasmaHigh7-25Medina HospitalUric Acidon 50-50-5306Bmvoo [Mass/Vol]3.8 mg/dLNormal2.3-6.6The [facility] Physician GroupComment on above: Performed By: #### MG, CMP, CBC, LIPID #### [address] Phillips StreetUrine Cultureon 16-90-3265Jsaepdvf identified Cx Nom (U) ORGANISM: Escherichia coli (O:ESCCOL) Weldon Count >100,000 Aerobic JUNAID Charge (NMIC56) SUSCEPTIBILITY [...] RESISTANT TO ALL B-LACTAM DRUGS. PERFORMED BY: [place] [address] PATHOLOGIST AUTHOR AGENT VEL GARCIA M.D.NormalThe [facility] Physician GroupComment on above: Performed By: #### MG, CMP, CBC, LIPID #### [facility] [address] [place] [address] USAUrine cultureOrdered By: Marilyn Stewart on 11-63-3506Snzqdwsk identified Cx Nom (U)Escherichia coliAbParma Community General Hospital Urine protein/creatinine ratioOrdered By: Marilyn Stewart on 12-28-2024 Protein/Creatinine (U) [Ratio]Urine protein/creatinine ratioHigh0-200Medina HospitalUrobilinogen Test strip (U) [Mass/Vol]Ordered By: Marilyn Stewart on 14-01-3688Rysdmtvjrznd (U) [Mass/Vol]Urobilinogen [Mass/volume] in Urine by Test stripWayne HealthCare Main CampusVitamin D 25 Hydroxy Totalon 79-93-1020Haodazk D 25 Hydroxy Total58.1 ng/vOBnlmsf69-019Rbc [facility] Physician GroupComment on above:Result Comment: VITAMIN D STATUS 25(OH)VITAMIN D RANGE (ng/mL) Deficient <20 Insufficient 20 to <30 Sufficient 30 to 100 Reference: Oli MF,Albert NC, ClaudeHawk LACKEY et al. Evaluation,treatment, and prevention of vitamin D deficiency; an Endocrine Society clinical practice guideline. JCEM. 2010; 96(7):1911-30. PERFORMED BY: [place] [id number] PATHOLOGIST AUTHOR AGENT VEL GARCIA M.D.Performed By: #### MG, CMP, CBC, LIPID #### [place] [address] USAVitamin D+Metabolites [Mass/volume] in Serum or Plasma Ordered By: Marilyn Stewart on 82-40-7520Yqibykv D+Metabolites [Mass/Vol]Vitamin D+Metabolites [Mass/volume] in Serum or Lznktt61-040KxvcbvlcsMedina HospitalComment on above:VITAMIN D STATUS 25(OH)VITAMIN D RANGE (ng/mL) Deficient <20 Insufficient 20 to <50Evwttgqygq16 to 100Reference: Oli MF,Albert NC, Beltran LACKEY et al. Evaluation,treatment, and prevention of vitamin D deficiency; an Endocrine Society clinical practice guideline. JCEM. 2010; 96 (7):1911-30.pH Test strip (U)Ordered By: Marilyn Stewart on 95-11-4022aS (U)pH of Urine by Test strip5.0-9.0Medina HospitalX-ray reportOrdered By: René Fox on 41-31-8518Jdppa reportCLEVELAND CLINIC [facility]INA [facility]OSPITAL [facility] [place] [address] [place], [place] [address] XRay Report Signed Patient: Anh Tejeda MR#: [id number] : 1950 Acct:[id number] Age/Sex: 73 / F ADM Date: 5 Loc: XD Room: Type: [facility] Attending Dr: Vinay Matta DO Copies [...] Jr DO 12/15/241613 Signed By: 12/15/24 1614 Medina HospitalXR lumbar spine 6V w bendingon 64-38-3357BD lumbar spine 6V w bendingCLEVELAND CLINIC [facility]INA [facility] [place] [address] [place] [address] XRay Report Signed Patient: Anh Tejeda MR#: [id number] : 1950 Acct:[id number] Age/Sex: 73 / F ADM Date: 12/15/24 Loc: XD Room: Type: [facility] Attending Dr: Vinay Matta DO Copies [...] Fox Jr DO 12/15/241613 Signed By: 12/15/24 [facility] Physician GroupCNPNon 13-27-3207YDOUVcamyqkrv (HEMASA) ANH TEJEDA ([id number]) 1950 F Date Time Provider Department 10/10/24 [...] 01/29/2024 Encounter Status:Closed by SAMANTHA MCMAHAN on 10/10/24NormalCCleveland Clinic [facility] W Auto Differential panel (Bld)on 71-55-2501Ojeiwgoqt (Bld) [#/Vol] 10*3/uLNormal<0.11CUniversity [facility]als [facility] on above:Order Comment: Specimen Type: BLOOD SPECIMENOrdering Facility: [facility] Address:[address] [place], [place] [address]Saewsbwqo By: #### 63469-0, 08203-8 ####[facility] LABCLIA [id number] [place], [place] [address]Qmwzvczmh/100 WBC (Bld)0.4 %NormalMcKitrick Hospital on above:Order Comment: Specimen Type: BLOOD SPECIMENOrdering Facility: [facility] Address:[address] [place], [place] [address]Zsniwuypi By: #### 71772-2, 24655-5 ####[facility] LABCLIA [id number] [place], [place] [address]Nxbddfqxtjky cell count method Nom (Bld)AutoNormalCUniversity Hospitals Conneaut Medical Center on above:Order Comment: Specimen Type: BLOOD SPECIMENOrdering Facility: [facility] Address:[address] [place], [place] [address]Performed By: #### 54655- 8, 21574-8 ####[facility] LABCLIA [id number] [place], [place] [address]Xmaidejuats (Bld) [#/Vol]0.17 10*3/uLNormal<0.46 [facility] on above:Order Comment: Specimen Type: BLOOD SPECIMENOrdering Facility: [facility] Address:[address] [place], [place] [address]Performed By: #### 80422-6, 90388-4 ####[facility] LABCLIA [id number] [place] [address] Eosinophils/100 WBC (Bld)3.3 %NormalMcKitrick Hospital on above: Order Comment: Specimen Type: BLOOD SPECIMENOrdering Facility: [facility] Address:[address] [place], [place] [address]Performed By: #### 97805- 8, 29554-7 ####[facility] LABCLIA [id number] [place], [place] [address]Grlmjnkdswd distribution width (RBC) [Ratio]15.1 % High11.5-15.0[facility] on above:Order Comment: Specimen Type: BLOOD SPECIMENOrdering Facility: [facility] Address:[address] [place], [place] [address]Performed By: #### 98602-4, 00181-9 ####[facility] LABCLIA [id number] [place], [place] [address]Jmntuabhmf (Bld) [Volume fraction]33.0 %Low36.0-46.0 [facility] on above:Order Comment: Specimen Type: BLOOD SPECIMENOrdering Facility: [facility] Address:[address] [place], [place] [address]Performed By: #### 50568-3, 73200-9 ####[facility] LABCLIA [id number] [place] [address] Hemoglobin (Bld) [Mass/Vol]11.6 g/kCGlqspg33.5-15.5CThe [facility] Comment on above:Order Comment: Specimen Type: BLOOD SPECIMENOrdering Facility: [facility] Address:[address] [place] [address] Performed By: #### 76872-5, 53247-9 ####[facility] LABCLIA [id number] [place], [place] [address]Iqmpajfo granulocytes (Bld) [#/Vol]10*3/uLNormal<0.10[facility] Northment on above:Order Comment: Specimen Type: BLOOD SPECIMENOrdering Facility: [facility] Address:[address] [place], [place] [address]Performed By: #### 90316- 8, 55202-8 ####[facility] LABIA [id number] [place], [place] [address]Ngnrnuxn granulocytes/100 WBC (Bld)0.4 %Normal [facility] on above:Order Comment: Specimen Type: BLOOD SPECIMENOrdering Facility: [facility] Address:[address] [place], [place] [address]Performed By: #### 17106-3, 42280-5 ####[facility] LABIA [id number] [place] [address] Lymphocytes (Bld) [#/Vol]1.32 10*3/uLNormal1.00-4.00[facility] Comment on above:Order Comment: Specimen Type: BLOOD SPECIMENOrdering Facility: [facility] Address:[address] [place] [address] Performed By: #### 19336-7, 14385-1 ####[facility] LABCLIA [id number] [place], [place] [address]Aenqxiurhzu/100 WBC (Bld)25.5 %NormalMcKitrick Hospital on above:Order Comment: Specimen Type: BLOOD SPECIMENOrdering Facility: [facility] Address:[address] [place], [place] [address]Performed By: #### 40619-9, 43222-3 ####[facility] LABCLIA [id number] [place], [place] [address]MNY (RBC) [Entitic mass]29.7 nlLxpmig39.0-34.0[facility] on above:Order Comment: Specimen Type: BLOOD SPECIMENOrdering Facility: [facility] Address:[address] [place], [place] [address]Performed By: #### 19619-0, 10932-7 ####[facility] LABCLIA [id number] [place], [place] [address]LODP (RBC) [Mass/Vol]35.2 g/uGZmqjvt16.5-36.0[facility] on above:Order Comment: Specimen Type: BLOOD SPECIMENOrdering Facility: [facility] Address:[address] [place], [place] [address]Performed By: #### 38056-2, 28892-1 ####[facility] LABCLIA [id number] [place], [place] [address]ZJT (RBC) [Entitic vol]84.6 fLNormal 80.0-100.0[facility] on above:Order Comment: Specimen Type: BLOOD SPECIMENOrdering Facility: [facility] Address:[address] [place], [place] [address]Performed By: #### 64749-4, 35889-8 ####[facility] LABCLIA [id number] [place], [place] [address]Wbdfhgxme (Bld) [#/Vol]0.28 10*3/uLNormal<0.87[facility] on above:Order Comment: Specimen Type: BLOOD SPECIMENOrdering Facility: [facility] Address:[address] [place], [place] [address]Performed By: #### 44015-5, 09340-0 ####[facility] LABCLIA [id number] [place] [address] Monocytes/100 WBC (Bld)5.4 %NormalMcKitrick Hospital on above: Order Comment: Specimen Type: BLOOD SPECIMENOrdering Facility: [facility] Address:[address] [place], [place] [address]Performed By: #### 83235- 8, 50063-5 ####[facility] LABCLIA [id number] [place], [place] [address]Uvxbvojmxxh (Bld) [#/Vol]3.37 10*3/uLNormal 1.45-7.50[facility] on above:Order Comment: Specimen Type: BLOOD SPECIMENOrdering Facility: [facility] Address:[address] [place], [place] [address]Performed By: #### 87120-4, 95979-5 ####[facility] LABCLIA [id number] [place], [place] [address]Pbvuwiawzvw/100 WBC (Bld)65.0 %NormalMcKitrick Hospital on above:Order Comment: Specimen Type: BLOOD SPECIMENOrdering Facility: [facility] Address:[address] [place], [place] [address]Performed By: #### 00758-2, 38580-6 ####[facility] LABIA [id number] [place], [place] [address]Twwdmeicx RBC (Bld) [#/Vol]10*3/uLNormal<0.01[facility] on above:Order Comment: Specimen Type: BLOOD SPECIMENOrdering Facility: [facility] Address:[address] [place], [place] [address]Performed By: #### 68867- 8, 98277-1 ####[facility] LABCLIA [id number] [place], [place] [address]Eyzfdfdfo RBC/100 WBC (Bld) [Ratio]0.0 /100 WBC NormalMcKitrick Hospital on above:Order Comment: Specimen Type: BLOOD SPECIMENOrdering Facility: [facility] Address:[address] [place], [place] [address]Performed By: #### 70958-9, 71390-3 ####[facility] LABCLIA [id number] [place], [place] [address]Xkasdmex mean volume (Bld) [Entitic vol]9.8 fLNormal9.0-12.7CUniversity [facility]als [facility] on above:Order Comment: Specimen Type: BLOOD SPECIMENOrdering Facility: [facility] Address:[address] [place], [place] [address]Performed By: #### 03622-6, 36456-5 ####[facility] LABIA [id number] [place] [address] Platelets (Bld) [#/Vol]126 10*3/rEOxy259-625LawxqqscdMcKitrick Hospital on above:Order Comment: Specimen Type: BLOOD SPECIMENOrdering Facility: [facility] Address:[address] [place], [place] [address]Result Comment: Results checked and verified.No clot detected.Performed By: #### 26861-4, 64227- 0 ####[facility] LABIA [id number] [place], [place] [address]HGU (Bld) [#/Vol]3.90 10*6/uLNormal3.90-5.20[facility] on above:Order Comment: Specimen Type: BLOOD SPECIMENOrdering Facility: [facility] Address:[address] [place], [place] [address]Performed By: #### 55595-8, 86226-0 ####[facility] LABCLIA [id number] [place], [place] [address]KHZ (Bld) [#/Vol]5.18 10*3/uLNormal3.70-11.00[facility] Health MiamisburgComment on above:Order Comment: Specimen Type: BLOOD SPECIMENOrdering Facility: [facility] Address:[address] [place], [place] [address]Zzpdmjagx By: #### 50571-2, 15482-9 ####[facility] CENTERZANDRA [facility] LABCLIA [id number] [place], [place] [address]DTFZRYmy 51-45-9771MNMUGCAgeeg (SP) Office (HEMASA) ANH TEJEDA ([id number]) 1950 F Date Time Provider Department 10/07/24 2:30 PM DAKSHA BRIDGES During your visit today, we recorded the following information about you: Temperature Pulse Respiration Blood pressure 97.1 degrees 81/minute 18/minute 144/75 Weight Height 96.7 kg 1.58 m Daksha Bridges PA-C 10/07/2024 2:56 PM Signed Hematology Progress Note PATIENT NAME: Anh Tejeda CLINIC NO.: [id number] ATTENDING PHYSICIAN: Henry Walker MD DATE OF [...] bilaterally Abdomen: Benign Extremities: (more content not included)...NormalK[facility] Comprehensive metabolic 2000 panelon 67-29-7452Fciumss [Mass/Vol]3.9 g/dLNormal 3.9-4.9CThe University of Toledo Medical CenterComment on above:Order Comment: Specimen Type: BLOOD SPECIMEN Ordering Facility: [facility] Address: [address] [place], [place] [address]Performed By: #### 65713-9, 2276-4 #### [facility] CLIA [id number] [address] [place] [address] [place] OF AMERICAALP [Catalytic activity/Vol] 182 U/XTcno48-292WvcpdcqtrMcKitrick Hospital on above:Order Comment: Specimen Type: BLOOD SPECIMEN Ordering Facility: [facility] Address: [address] [place], [place] [address]Performed By: #### 69871-0, 2275- #### [facility] CLIA [id number] [address] [place] [address] [place] AMERICAALT [Catalytic activity/Vol] 17 U/LNormal7-38[facility] on above:Order Comment: Specimen Type: BLOOD SPECIMEN Ordering Facility: [facility] Address: [address] [place], [place] [address]Performed By: #### 37494-2, 2276-02 #### [facility] CLIA [id number] [address] [place] [address] [place] AMERICAAnion gap [Moles/Vol]11 mmol/LNormal8-15[facility] on above:Order Comment: Specimen Type: BLOOD SPECIMEN Ordering Facility: [facility] Address: [address] [place], [place] [address]Performed By: #### 59265-9, 2276-02 #### [facility] CLIA [id number] [address] [place] [address] [place] AMERICAAST [Catalytic activity/Vol] 21 U/FZohhda81-19ImokztlesMcKitrick Hospital on above:Order Comment: Specimen Type: BLOOD SPECIMEN Ordering Facility: [facility] Address: [address] [place], [place] [address]Performed By: #### 23529-8, 2275-4 #### [facility] CLIA [id number] [address] [place], [place] [address] [place] OF AMERICABilirubin [Mass/Vol]0.6 mg/dLNormal0.2-1.3CUniversity [facility] on above:Order Comment: Specimen Type: BLOOD SPECIMEN Ordering Facility: [facility] Address: [address] [place], [place] [address]Performed By: #### 76059-8, 2276-02 #### [facility] CLIA [id number] [address] [place] [address] [place] AMERICACalcium [Mass/Vol]9.1 mg/dL Normal8.5-10.2CUniversity [facility]als [facility] on above:Order Comment: Specimen Type: BLOOD SPECIMEN Ordering Facility: [facility] Address: [address] [place], [place] [address]Performed By: #### 32919-6, 2276-02 #### [facility] CLIA [id number] [address] [place] [address] [place] AMERICAChloride [Moles/Vol]99 mmol/KJmkasa66-601QljmlsqboMcKitrick Hospital on above:Order Comment: Specimen Type: BLOOD SPECIMEN Ordering Facility: [facility] Address: [address] [place], [place] [address]Performed By: #### 61387-5, 2276-02 #### [facility] CLIA [id number] [address] [place] [address] [place] AMERICACO2 [Moles/Vol]27 mmol/L Iqamhn64-03BvoewyzqeMcKitrick Hospital on above:Order Comment: Specimen Type: BLOOD SPECIMEN Ordering Facility: [facility] Address: [address] [place], [place] [address]Performed By: #### 67675-7, 2276-02 #### [facility] CLIA [id number] [address] [place] [address] [place] AMERICACreatinine [Mass/Vol]1.33 mg/dLHigh0.58-0.96[facility] on above:Order Comment: Specimen Type: BLOOD SPECIMEN Ordering Facility: [facility] Address: [address] [place], [place] [address]Performed By: #### 93517-6, 6-4 #### [facility] CLIA [id number] [address] [place] [address] [place] AMERICACreatinine and Glomerular filtration rate.predicted panel (S/P/Bld)42 mL/min/1.73m???Low>=60[facility] on above:Order Comment: Specimen Type: BLOOD SPECIMEN Ordering Facility: [facility] Address: [address] [place], [place] [address]Result Comment: Estimated Glomerular Filtration Rate (eGFR) is [...] not accurately reflect actual GFR.Performed By: #### 80088-9, 2276-02 #### [facility] CLIA [id number] [address] [place] [address] [place] AMERICAGlucose [Mass/Vol]361 mg/dL Lopi35-57FnhlctlqnMcKitrick Hospital on above:Order Comment: Specimen Type: BLOOD SPECIMEN Ordering Facility: [facility] Address: [address] [place], [place] [address]Result Comment: The Citizen [place] Diabetes Association (ADA) provides guidance for cutoff [...] Medical Care in Diabetes 2016, Citizen [place] Diabetes Association. Diabetes Care. 2016.39(Suppl 1).Performed By: #### 86794-6, 2276-02 #### [facility] CLIA [id number] [address] [place], [place] [address] [place] AMERICAPotassium [Moles/Vol]4.7 mmol/LNormal3.7-5.1CUniversity Hospitals [facility] on above:Order Comment: Specimen Type: BLOOD SPECIMEN Ordering Facility: [facility] Address: [address] [place], [place] [address]Performed By: #### 79535-1, 2276-02 #### [facility] CLIA [id number] [address] [place] [address] [place] AMERICAProtein [Mass/Vol]6.4 g/dL Normal6.3-8.0[facility] on above:Order Comment: Specimen Type: BLOOD SPECIMEN Ordering Facility: [facility] Address: [address] [place], [place] [address]Performed By: #### 10598-2, 2276-02 #### [facility] CLIA [id number] [address] [place] [address] [place] AMERICASodium [Moles/Vol]137 mmol/L Grtkdb627-013IvimqeyjkMcKitrick Hospital on above:Order Comment: Specimen Type: BLOOD SPECIMEN Ordering Facility: [facility] Address: [address] [place], [place] [address]Performed By: #### 01557-7, 2276-02 #### [facility] CLIA [id number] [address] [place] [address] [place] AMERICAUrea nitrogen [Mass/Vol]33 mg/dLHigh7-21[facility] on above:Order Comment: Specimen Type: BLOOD SPECIMEN Ordering Facility: [facility] Address: [address] [place], [place] [address]Performed By: #### 82957-1, 2276-02 #### [facility] CLIA [id number] [address] [place] [address] [place] AMERICAFerritin SerPl-mCncon 41-15-8563Nuqhhsjf [Mass/Vol]528.0 ng/wPPbhl65.7-205.1CThe [facility] Comment on above:Order Comment: Specimen Type: BLOOD SPECIMEN Ordering Facility: [facility] Address: [address] [place], [place] [address]Performed By: #### 72799-8, 6-4 #### [facility] CLIA [id number] [address] [place] [address] [place] AMERICAIron and Iron binding capacity panelon 12-78-4805Qaha [Mass/Vol]64 ug/kUKdbzfq94-582OcghnvxpcKettering Health MiamisburgComment on above:Order Comment: Specimen Type: BLOOD SPECIMEN Ordering Facility: [facility] Address: [address] [place], [place] [address]Performed By: #### 27083-8, 4 #### [facility] CLIA [id number] [address] [place] [address] [place] AMERICAIron binding capacity [Mass/Vol]331 ug/iLMrsrww918-932TprcrvsyhKettering Health MiamisburgComment on above:Order Comment: Specimen Type: BLOOD SPECIMEN Ordering Facility: [facility] Address: [address] [place], [place] [address]Performed By: #### 94910-6, 2275-4 #### [facility] CLIA [id number] [address] [place] [address] [place] AMERICAIron/TIBC [Molar ratio]19.3 %Zeuxae07.0-57.0[facility] on above:Order Comment: Specimen Type: BLOOD SPECIMEN Ordering Facility: [facility] Address: [address] [place], [place] [address]Performed By: #### 49752-4, 2275- #### [facility] CLIA [id number] [address] [place] [address] [place] AMERICARetics #on 10-07-2024 Reticulocytes (Bld) [#/Vol]0.20749 10*3/uLHigh0.018-0.100[facility] on above:Order Comment: Specimen Type: BLOOD SPECIMENOrdering Facility: [facility] Address:[address] [place], [place] [address]Performed By: #### 62805-7, 04099-4 ####[facility] LAB[facility] [id number] [place], [place] [address]Unofowykfzmgl (Bld) [#/Vol]on 49-28-3715Auiltkgdahhau/100 RBC (Bld)3.5 %High0.4-2.0[facility] on above:Order Comment: Specimen Type: BLOOD SPECIMENOrdering Facility: [facility] Address:[address] [place], [place] [address]Performed By: #### 73043-2, 51507-7 ####[facility] [id number] [place], [place] [address]Elstmocrch Visit Summaryon 98-72-1418Grjvjmbzkq Visit SummaryAmbulatory Visit Summary ANH TEJEDA :1950 [...] Obesity due to excess calories Pickup at [facility]/pharmacy #7950 Unchanged allopurinol (allopurinol 100 mg Tab) 1 [...] physician if questions or concerns Pharmacy Information [facility]/pharmacy #[id number]: [address], [place] [id number] [phone] Allergies Tylenol with Codeine #3 (Upset stomach) [...] for choosing us (more content not included)...[facility]on 09-29-2024 Gastroenterology Office/Clinic [...] systems reviewed, negative except (more content not included)...[facility] JacksonComment on above:Result Comment: Electronically Signed By: Shanel DONG, Verónica Finch\.br\Date and Time Signed: 09/29/2410:08 ESTAlanine aminotransferase [Enzymatic activity/volume] in Serum or PlasmaOrdered By: Vinay Matta on 71-38-9755KHY [Catalytic activity/Vol]15 U/LNormal Medina HospitalComment on above:Order Comment: A1C IS NOT DUE UNTIL OCTOBER.Performed By: #### MG, CMP, CBC, LIPID #### [facility] [address] [place] [address] USAALT [Catalytic activity/Vol]Alanine aminotransferase [Enzymatic activity/volume] in Serum or PlasmaMedina HospitalAlbumin [Mass/volume] in Serum or Plasma by Bromocresol green (BCG) dye binding methoOrdered By: Vinay Bunting on 30-23-9673Xeigeza BCG dye [Mass/Vol] 4.0 g/dL3.5-5.7FJoint Township District Memorial HospitalAlbumin BCG dye [Mass/Vol] Albumin [Mass/volume] in Serum or Plasma by Bromocresol green (BCG) dye binding metho3.5-5.7FJoint Township District Memorial HospitalAlkaline phosphatase [Enzymatic activity/volume] in Serum or PlasmaOrdered By: Vinay Bunting on 25-91-4335ELQ [Catalytic activity/Vol]141 U/VQpdm91-288Iyqlaustg[address] [place] [address] Comment on above:Order Comment: A1C IS NOT DUE UNTIL OCTOBER.Performed By: #### MG, CMP, CBC, LIPID #### [facility] [address] [place] [address] USAALP [Catalytic activity/Vol]Alkaline phosphatase [Enzymatic activity/volume] in Serum or FswspoCuri42-799Cshldicst19 Palmer StreetAspartate aminotransferase [Enzymatic activity/volume] in Serum or PlasmaOrdered By: Vinay Bunting on 32-04-9281MEZ [Catalytic activity/Vol]16 U/L Bwdcwj25-36Aqxyyrysm68 Miranda StreetComment on above:Order Comment: A1C IS NOT DUE UNTIL OCTOBER.Performed By: #### MG, CMP, CBC, LIPID #### [facility] [address] [place], [place] [address] USAAST [Catalytic activity/Vol]Aspartate aminotransferase [Enzymatic activity/volume] in Serum or Cqleom27-13Ajxrrdoua68 Miranda StreetAutomated basophil %Ordered By: Vinay Bunting on 76-22-5696Eadmsymfl/100 WBC (Bld)0.5 %Normal.Medina HospitalComment on above:Order Comment: A1C IS NOT DUE UNTIL OCTOBER.Performed By: #### MG, CMP, CBC, LIPID #### [facility] [address] [place] [address] USAAutomated basophil countOrdered By: Vinay Bunting on 32-97-5934Iudpccrkm (Bld) [#/Vol]0.0 10*3/uLNormal0.0-0.2FJoint Township District Memorial HospitalComment on above:Order Comment: A1C IS NOT DUE UNTIL OCTOBER. Result Comment: PERFORMED BY: [place] [address] PATHOLOGIST AUTHOR AGENT THERESA MULLER M.D.Performed By: #### MG, CMP, CBC, LIPID #### [place] [address] USAAutomated blood monocyte countOrdered By: Vinay Bunting on 38-58-0434Twbexiqbr (Bld) [#/Vol]0.3 10*3/uLNormal0.0-0.8Medina HospitalComment on above:Order Comment: A1C IS NOT DUE UNTIL OCTOBER. Performed By: #### MG, CMP, CBC, LIPID #### [place] [address] USAAutomated eosinophil %Ordered By: Vinay Bunting on 65-39-9240Pufvtbimmou/100 WBC (Bld)2.9 %Normal.[facility] Comment on above:Order Comment: A1C IS NOT DUE UNTIL OCTOBER.Performed By: #### MG, CMP, CBC, LIPID #### [place] [address] USAAutomated eosinophil countOrdered By: Vinay Bunting on 09-81-8397Ftewwllzqis (Bld) [#/Vol]0.2 10*3/uLNormal0.0-0.45Medina HospitalComment on above:Order Comment: A1C IS NOT DUE UNTIL OCTOBER. Performed By: #### MG, CMP, CBC, LIPID #### [place] [address] USAAutomated monocyte %Ordered By: Vinay Bunting on 61-17-2919Rfnzsccqc/100 WBC (Bld)5.0 %Normal.[facility] Comment on above:Order Comment: A1C IS NOT DUE UNTIL OCTOBER.Performed By: #### MG, CMP, CBC, LIPID #### [place] [address] USAAutomated neutrophil %Ordered By: Vinay Bunting on 68-06-1177Nxkfyskwgyh/100 WBC (Bld)64.0 %Normal.Medina HospitalComment on above:Order Comment: A1C IS NOT DUE UNTIL OCTOBER.Performed By: #### MG, CMP, CBC, LIPID #### [facility] [address] [place] [address] USABasophils Auto (Bld) [#/Vol]Ordered By: Vinay Bunting on 60-31-5055Ymndubyzf (Bld) [#/Vol]Automated basophil count0.0-0.2FJoint Township District Memorial HospitalBasophils/100 WBC Auto (Bld)Ordered By: Vinay Bunting on 02-23-4928Ggmvbbqvh/100 WBC (Bld)Automated basophil %.Medina HospitalBilirubin.total [Mass/volume] in Serum or PlasmaOrdered By: Vinay Bunting on 47-52-8661Pgwaietfz [Mass/Vol]0.8 mg/dLNormal0.3-1.0Medina HospitalComment on above:Order Comment: A1C IS NOT DUE UNTIL OCTOBER.Performed By: #### MG, CMP, CBC, LIPID #### [facility] [address] [place] [address] USABilirubin [Mass/Vol]Bilirubin.total [Mass/volume] in Serum or Plasma0.3-1.0Medina HospitalCalcium [Mass/volume] in Serum or PlasmaOrdered By: Vinay Bunting on 95-74-5453Lhuhxxq [Mass/Vol]9.1 mg/dL Normal8.6-10.3FJoint Township District Memorial HospitalComment on above:Order Comment: A1C IS NOT DUE UNTIL OCTOBER.Performed By: #### MG, CMP, CBC, LIPID #### [facility] [address] [place] [address] USACalcium [Mass/Vol]Calcium [Mass/volume] in Serum or Plasma 8.6-10.3FJoint Township District Memorial HospitalCarbon dioxide, total [Moles/volume] in Serum or PlasmaOrdered By: Vinay Bunting on 18-61-4391OS2 [Moles/Vol]31.3 mmol/LHigh21.0-31.0Medina HospitalComment on above:Order Comment: A1C IS NOT DUE UNTIL OCTOBER.Performed By: #### MG, CMP, CBC, LIPID #### [facility] [address] [place] [address] USACO2 [Moles/Vol]Carbon dioxide, total [Moles/volume] in Serum or RegynqAbcb04.0-31.0Medina HospitalChloride [Moles/volume] in Serum or PlasmaOrdered By: Vinay Matta on 09-19-2024 Chloride [Moles/Vol]101 mmol/EVcmhjc25-886Wihkqwymo[address] [place] [address] Comment on above:Order Comment: A1C IS NOT DUE UNTIL OCTOBER.Performed By: #### MG, CMP, CBC, LIPID #### [facility] [address] [place] [address] USAChloride [Moles/Vol]Chloride [Moles/volume] in Serum or Pawhub82-482ZyjyshoriMedina HospitalCholesterol [Mass/volume] in Serum or PlasmaOrdered By: Vinay Matta on 08-78-1592Jkudolpjkzu [Mass/Vol]132 mg/dL Wkw156-218FreaqcnfvMedina HospitalComment on above:Chol less than 200 mg/dl low riskChol 201-239 mg/dl borderline riskChol 240 mg/dl and greater high riskOrder Comment: A1C IS NOT DUE UNTIL OCTOBER.Result Comment: Chol less than 200 mg/dl low risk Chol 201-239 mg/dl borderline risk Chol 240 mg/dl and greater high riskPerformed By: #### MG, CMP, CBC, LIPID #### [facility] [address] [place] [address] USACholesterol [Mass/Vol]Cholesterol [Mass/volume] in Serum or IzgqwiLqg101-685WavktedquMedina HospitalComment on above:Chol less than 200 mg/dl low riskChol 201-239 mg/dl borderline riskChol 240 mg/dl and greater high riskCholesterol in HDL [Mass/volume] in Serum or PlasmaOrdered By: Vinay Matta on 31-04-1533Garpxuprylh in HDL [Mass/Vol]Serum or plasma high density lipoprotein (HDL) cholesterol -68SvzdyiubrMedina HospitalComment on above:HDL CHOL ATP-III CLASSIFICATION Cardiovascular RiskHDL > or equal to 60 mg/dL LOWHDL < 40 mg/dL HIGHCholesterol in LDL Calc [Mass/Vol] Ordered By: Vinay Matta on 83-39-2251Wywgqdclhsr in LDL [Mass/Vol]61 mg/dL 0-100Medina HospitalComment on above:LDL ATP III CLASSIFICATIONLDL less than 100 mg/dL OptimalLDL 100-129 mg/dL Near or above hecncstQHH342-911 mg/dL Borderline highLDL 160-189 mg/dL HighLDL greater than 189 mg/dL Very highCholesterol in LDL [Mass/Vol]Cholesterol in LDL [Mass/volume] in Serum or Plasma by calculation0Medina HospitalComment on above:LDL ATP III CLASSIFICATIONLDL less than 100 mg/dL OptimalLDL 100-129 mg/dL Near or above btniceoKGC303-939 mg/dL Borderline highLDL 160-189 mg/dL HighLDL greater than 189 mg/dL Very highCholesterol in VLDL Calc [Mass/Vol] Ordered By: Vinay Matta on 22-41-8414Lorzdaiamku in VLDL [Mass/Vol]30 mg/dL Medina HospitalCholesterol in VLDL [Mass/Vol]Cholesterol in VLDL [Mass/volume] in Serum or Plasma by calculationMedina HospitalComplete Blood Count Auto Diffon 28-54-7828Ypvw Corpuscular HGB Conc35.0 g/xIUkedfi60.0-35.0The [facility] Physician GroupComment on above:Order Comment: A1C IS NOT DUE UNTIL OCTOBER.Performed By: #### MG, CMP, CBC, LIPID #### [facility] [address] [place] [address] USANRBC%0.1 /100{WBC}Normal0-0.5[facility] Comment on above:Order Comment: A1C IS NOT DUE UNTIL OCTOBER.Performed By: #### MG, CMP, CBC, LIPID #### [facility] [address] [place] [address] USAComprehensive Metabolic Panelon 36-22-6715Xdzajxq [Mass/Vol]4.0 g/dLNormal3.5-5.7The [facility] Physician GroupComment on above: Order Comment: A1C IS NOT DUE UNTIL OCTOBER.Performed By: #### MG, CMP, CBC, LIPID #### [facility] [address] [place] [address] USAGFR/1.73 sq M.predicted MDRD (S/P/Bld) [Vol rate/Area] 32.214 mL/min/{1.73_m2}NormalThe Our Community Hospital Physician GroupComment on above:Order Comment: A1C IS NOT DUE UNTIL OCTOBER.Performed By: #### MG, CMP, CBC, LIPID #### [facility] [address] [place] [address] USACreatinine [Mass/volume] in Serum or PlasmaOrdered By: Vinay Bunting on 13-14-0355Ampneslogv [Mass/Vol]1.65 mg/dLHigh0.60-1.20 Medina HospitalComment on above:Order Comment: A1C IS NOT DUE UNTIL OCTOBER.Performed By: #### MG, CMP, CBC, LIPID #### [facility] [address] [place] [address] USACreatinine [Mass/Vol]Creatinine [Mass/volume] in Serum or PlasmaHigh0.60-1.20Medina HospitalEosinophils Auto (Bld) [#/Vol]Ordered By: Vinay Bunting on 68-41-3320Hpnpltgtgmh (Bld) [#/Vol] Automated eosinophil count0.0-0.45[facility] Eosinophils/100 WBC Auto (Bld)Ordered By: Vinay Bunting on 09-19-2024 Eosinophils/100 WBC (Bld)Automated eosinophil %.Medina HospitalErythrocyte distribution width Auto (RBC) [Ratio]Ordered By: Vinay Bunting on 76-51-9571Vzedtqpszrm distribution width (RBC) [Ratio]Erythrocyte distribution width [Ratio] by Automated tqbdeZoav98.9-15.3FJoint Township District Memorial HospitalErythrocyte distribution width [Ratio] by Automated countOrdered By: Vinay Bunting on 87-04-2193Xgbixggnlsk distribution width (RBC) [Ratio]16.3 %High11.9-15.3FJoint Township District Memorial HospitalComment on above:Order Comment: A1C IS NOT DUE UNTIL OCTOBER.Performed By: #### MG, CMP, CBC, LIPID #### [facility] [address] [place] [address] USAErythrocytes [#/volume] in Blood by Automated countOrdered By: Vinay Matta on 41-12-7783SAC (Bld) [#/Vol]4.03 10*6/uLNormal3.60-5.00 Medina HospitalComment on above:Order Comment: A1C IS NOT DUE UNTIL OCTOBER.Performed By: #### MG, CMP, CBC, LIPID #### [facility] [address] [place] [address] USAGlobulin Calc (S) [Mass/Vol]Ordered By: Vinay Matta on 28-96-4961Fqaubqln (S) [Mass/Vol]Serum globulin measurement by calculation (mass/volume)Medina HospitalGlucose [Mass/volume] in Serum or PlasmaOrdered By: Vinay Matta on 17-01-5690Crjgqxg [Mass/Vol]195 mg/dLHigh 70-100Medina HospitalComment on above:ADA recommended reference rangeRandom Glucose [...] By: #### MG, CMP, CBC, LIPID #### [facility] [address] [place] [address] USAGlucose [Mass/Vol]Glucose [Mass/volume] in Serum or Plasma Ldxw43-957OorujzzxoMedina HospitalComment on above:ADA recommended reference rangeRandom Glucose Reference Range is dependent on time and content of last meal. Glucose of more than 200 mg/dL in a nonstressed, ambulatory subject supports the diagnosisof Diabetes Mellitus.Hematocrit Auto (Bld) [Volume fraction]Ordered By: Vinay Matta on 20-59-7777Wsqwmelmvv (Bld) [Volume fraction]Hematocrit [Volume Fraction] of Blood by Automated count34.0-46.4 Medina HospitalHematocrit [Volume Fraction] of Blood by Automated countOrdered By: Vinay Matta on 69-22-5626Wtzfdeieny (Bld) [Volume fraction]34.1 %Kzvdme21.0-46.4FJoint Township District Memorial HospitalComment on above: Order Comment: A1C IS NOT DUE UNTIL OCTOBER.Performed By: #### MG, CMP, CBC, LIPID #### [facility] [address] [place] [id number] USAHemoglobin [Mass/volume] in BloodOrdered By: Vinay Matta on 60-10-9344Pyfaoewjlm (Bld) [Mass/Vol]12.0 g/iRRazjza49.8-15.4 Medina HospitalComment on above:Order Comment: A1C IS NOT DUE UNTIL OCTOBER.Performed By: #### MG, CMP, CBC, LIPID #### [facility] [address] [place] [address] USAHemoglobin (Bld) [Mass/Vol]Hemoglobin [Mass/volume] in Blood11.8-15.4FJoint Township District Memorial HospitalLeukocytes [#/volume] corrected for nucleated erythrocytes in Blood by Automated counOrdered By: Vinay Matta on 79-94-4805KZE corrected for nucl RBC Auto (Bld) [#/Vol]5.5 10*3/uL3.8-11.6 Medina HospitalWBC corrected for nucl RBC Auto (Bld) [#/Vol] Leukocytes [#/volume] corrected for nucleated erythrocytes in Blood by Automated coun3.8-11.6FJoint Township District Memorial HospitalLeukocytes [#/volume] in Blood by Automated countOrdered By: Vinay Matta on 48-53-5076TGN (Bld) [#/Vol]5.5 10*3/uLNormal3.8-11.6FJoint Township District Memorial HospitalComment on above:Order Comment: A1C IS NOT DUE UNTIL OCTOBER.Performed By: #### MG, CMP, CBC, LIPID #### [facility] [address] [place] [address] USALipid Panelon 42-10-5090BMS Cholesterol,Riedromlym73 mg/dL Normal0-100The [facility] Physician GroupComment on above:Order Comment: A1C IS NOT DUE UNTIL OCTOBER.Result Comment: LDL ATP III CLASSIFICATION LDL less than 100 mg/dL Optimal LDL 100-129 mg/dL Near or above optimal LDL 130-159 mg/dL Borderline high LDL 160-189 mg/dL High LDL greater than 189 mg/dL Very highPerformed By: #### MG, CMP, CBC, LIPID #### [facility] [address] [place] [id number] USATriglyceride w/Vgxlny632 mg/dLHigh0-149The [facility] Physician GroupComment on above:Order Comment: A1C IS NOT DUE UNTIL OCTOBER. Result Comment: TRIG ATP III CLASSIFICATION TRIG less than 150 mg/dL Normal TRIG 150-199 mg/dL Borderline high TRIG 200-500 mg/dL High TRIG greater than 500 mg/dL Very high Standard traceable to the Center for Disease Conrtrol and Prevention (CDC) test method.Performed By: #### MG, CMP, CBC, LIPID #### [facility] [address] [place] [id number] USAVLDL OBJIJEJNSRO09 mg/dLNoAtrium Health Union Physician Ummc GrenadaComment on above:Order Comment: A1C IS NOT DUE UNTIL OCTOBER.Performed By: #### MG, CMP, CBC, LIPID #### [place] [id number] USALymphocytes Auto (Bld) [#/Vol]Ordered By: Vinay Matta on 29-63-8337Itommwayngp (Bld) [#/Vol]Lymphocytes [#/volume] in Blood by Automated count1.00-4.8Medina HospitalLymphocytes [#/volume] in Blood by Automated countOrdered By: Vinay Matta on 61-79-3200Nplgtwukqnf (Bld) [#/Vol]1.5 10*3/uLNormal1.00-4.8Medina HospitalComment on above:Order Comment: A1C IS NOT DUE UNTIL OCTOBER.Performed By: #### MG, CMP, CBC, LIPID #### [facility] [facility] [address] [id number] USALymphocytes/100 WBC Auto (Bld)Ordered By: Vinay Bunhomer on 73-76-5350Eldhzkizrry/100 WBC (Bld)Lymphocytes/100 leukocytes in Blood by Automated count.Medina HospitalLymphocytes/100 leukocytes in Blood by Automated countOrdered By: Vinay Bunting on 39-06-3485Ezpdwhwacif/100 WBC (Bld)27.6 %Normal.Medina HospitalComment on above:Order Comment: A1C IS NOT DUE UNTIL OCTOBER.Performed By: #### MG, CMP, CBC, LIPID #### [facility] [address] Auto (RBC) [Entitic mass]Ordered By: Vinay Bunting on 43-83-5341IWO (RBC) [Entitic mass]MCH [Entitic mass] by Automated count24.7-34.3 [facility] [Entitic mass] by Automated countOrdered By: Vinay Bunting on 02-87-5950ZBL (RBC) [Entitic mass]29.7 riPzroya15.7-34.3 [facility] HospitalComment on above:Order Comment: A1C IS NOT DUE UNTIL OCTOBER.Performed By: #### MG, CMP, CBC, LIPID #### [facility] [address] [id number] [facility] Auto (RBC) [Mass/Vol]Ordered By: Vinay Bunting on 41-95-0072SEZM (RBC) [Mass/Vol]35.0 g/dL32.0-35.0[facility]HC (RBC) [Mass/Vol]MCHC [Mass/volume] by Automated count32.0-35.0 [facility] Auto (RBC) [Entitic vol]Ordered By: Vinay Bunting on 48-64-1505VHC (RBC) [Entitic vol]MCV [Entitic volume] by Automated jqydu70-760FvjskksbqRegency Hospital Cleveland WestV [Entitic volume] by Automated countOrdered By: Vinay Bunting on 09-60-4429JJL (RBC) [Entitic vol]84.7 fL Inzhdg02-728LfpsbbuszMedina HospitalComment on above:Order Comment: A1C IS NOT DUE UNTIL OCTOBER.Performed By: #### MG, CMP, CBC, LIPID #### [facility] [address] [place] [address] USAMagnesium [Mass/volume] in Serum or PlasmaOrdered By: Vinay Bunting on 98-90-3905Szakzajya [Mass/Vol]1.3 mg/dLLow1.9-2.7FJoint Township District Memorial HospitalComment on above:Order Comment: A1C IS NOT DUE UNTIL OCTOBER.Performed By: #### MG, CMP, CBC, LIPID #### [facility] [address] [place] [address] USAMagnesium [Mass/Vol]Magnesium [Mass/volume] in Serum or PlasmaLow1.9-2.7FJoint Township District Memorial HospitalMonocytes Auto (Bld) [#/Vol] Ordered By: Vinay Bunting on 21-98-5122Rfgvaipvh (Bld) [#/Vol]Automated blood monocyte count0.0-0.8Medina HospitalMonocytes/100 WBC Auto (Bld)Ordered By: Vinay Bunting on 25-02-6797Izrsqonvj/100 WBC (Bld)Automated monocyte %.[facility]ina HospitalNeutrophils Auto (Bld) [#/Vol] Ordered By: Vinay Bunting on 61-82-2017Lwakpgsjqjz (Bld) [#/Vol]Neutrophils [#/volume] in Blood by Automated count1.8-7.7FJoint Township District Memorial Hospital Neutrophils [#/volume] in Blood by Automated countOrdered By: Vinay Bunting on 59-52-5637Zqrnuxcmtwt (Bld) [#/Vol]3.5 10*3/uLNormal1.8-7.7FJoint Township District Memorial HospitalComment on above:Order Comment: A1C IS NOT DUE UNTIL OCTOBER. Performed By: #### MG, CMP, CBC, LIPID #### [facility] [address] [place] [address] USANeutrophils/100 WBC Auto (Bld)Ordered By: Vinay Bunting on 47-11-9301Bsbhfoypzpu/100 WBC (Bld)Automated neutrophil %.Medina HospitalNo Panel InformationOrdered By: Vinay Bunting on 09-19-2024 Estimated GFR (CKD-EPI)32.214 mL/MinMedina HospitalPharmacy Creatinine Clearance (ChemN/AFJoint Township District Memorial HospitalNucleated erythrocytes [Presence] in Blood by Automated countOrdered By: Vinay Bunting on 45-04-0089Ylcwepyck RBC Auto Ql (Bld)0.1 /100{WBC}0-0.5FJoint Township District Memorial HospitalNucleated RBC Auto Ql (Bld)Nucleated erythrocytes [Presence] in Blood by Automated count0-0.5FJoint Township District Memorial HospitalPlatelet mean volume Auto (Bld) [Entitic vol]Ordered By: Vinay Bunting on 75-75-1924Wlytailf mean volume (Bld) [Entitic vol]Platelet mean volume [Entitic volume] in Blood by Automated count6.3-10.7FJoint Township District Memorial HospitalPlatelet mean volume [Entitic volume] in Blood by Automated countOrdered By: Vinay Bunting on 74-49-9279Aetabwvf mean volume (Bld) [Entitic vol]7.2 fLNormal6.3-10.7FJoint Township District Memorial HospitalComment on above:Order Comment: A1C IS NOT DUE UNTIL OCTOBER.Performed By: #### MG, CMP, CBC, LIPID #### [facility] [address] [id number] USAPlatelets Auto (Bld) [#/Vol]Ordered By: Vinay Bunting on 66-44-9672Ycvjudubt (Bld) [#/Vol]Platelets [#/volume] in Blood by Automated wuzctLoz027-083[address] [place], [place] [address]Platelets [#/volume] in Blood by Automated countOrdered By: Vinay Bunting on 12-69-7656Aqgneypin (Bld) [#/Vol] 145 10*3/iFRiq765-882Ehmxvhr[address] [place], [place] [address]Comment on above:Order Comment: A1C IS NOT DUE UNTIL OCTOBER.Performed By: #### MG, CMP, CBC, LIPID #### [facility] [address] [place] [address] USAPotassium [Moles/volume] in Serum or PlasmaOrdered By: Vinay Bunting on 04-60-6587Fkibzbobl [Moles/Vol]5.1 mmol/LNormal3.5-5.1 [facility] HospitalComment on above:Order Comment: A1C IS NOT DUE UNTIL OCTOBER.Performed By: #### MG, CMP, CBC, LIPID #### [facility] [address] [place] [address] USAPotassium [Moles/Vol]Potassium [Moles/volume] in Serum or Plasma3.5-5.1FJoint Township District Memorial HospitalProtein [Mass/volume] in Serum or PlasmaOrdered By: Vinay Bunting on 04-97-7860Lrwboar [Mass/Vol]6.2 g/dLLow 6.4-8.9Medina HospitalComment on above:Order Comment: A1C IS NOT DUE UNTIL OCTOBER.Performed By: #### MG, CMP, CBC, LIPID #### [facility] [address] [place] [address] USAProtein [Mass/Vol]Protein [Mass/volume] in Serum or Plasma Low6.4-8.9Medina HospitalRBC Auto (Bld) [#/Vol]Ordered By: Vinay Bunting on 76-99-0072YBJ (Bld) [#/Vol]Erythrocytes [#/volume] in Blood by Automated count3.60-5.00Marymount Hospitalerum globulin measurement by calculation (mass/volume)Ordered By: Vinay Bunting on 09-19-2024 Globulin (S) [Mass/Vol]2.2 g/dLNormalMedina HospitalComment on above:Order Comment: A1C IS NOT DUE UNTIL OCTOBER.Performed By: #### MG, CMP, CBC, LIPID #### [facility] [address] [place] [address] USASerum or plasma albumin/globulin mass ratioOrdered By: Vinay Bunting on 30-30-2082Qianful/Globulin [Mass ratio]1.8 {ratio}Normal Medina HospitalComment on above:Order Comment: A1C IS NOT DUE UNTIL OCTOBER.Performed By: #### MG, CMP, CBC, LIPID #### [facility] [address] [place] [address] USAAlbumin/Globulin [Mass ratio]Serum or plasma albumin/globulin mass ratioMarymount Hospitalerum or plasma anion gap determinationOrdered By: Vinay Matta on 29-92-0529Izklv gap [Moles/Vol]11.8 mmol/LNormal6.0-15.0Medina HospitalComment on above:Order Comment: A1C IS NOT DUE UNTIL OCTOBER.Performed By: #### MG, CMP, CBC, LIPID #### [facility] [address] [place] [address] USAAnion gap [Moles/Vol]Serum or plasma anion gap determination6.0-15.0Marymount Hospitalerum or plasma high density lipoprotein (HDL) cholesterol measurementOrdered By: Vinay Matta on 46-00-9103Oujozmeosrz in HDL [Mass/Vol]41 mg/bGPzsmxz14-16UykezczaeMedina HospitalComment on above:HDL CHOL ATP-III CLASSIFICATION Cardiovascular RiskHDL > or equal to 60 mg/dL LOWHDL < 40 mg/dL HIGHOrder Comment: A1C IS NOT DUE UNTIL OCTOBER.Result Comment: HDL CHOL ATP-III CLASSIFICATION Cardiovascular Risk HDL > or equal to 60 mg/dL LOW HDL < 40 mg/dL HIGHPerformed By: #### MG, CMP, CBC, LIPID #### [facility] [address] [place] [address] USASerum or plasma total cholesterol/high density lipoprotein (HDL) cholesterol mass ratOrdered By: Vinay Matta on 09-19-2024 Cholesterol.total/Cholesterol in HDL [Mass ratio]3.2 {ratio}Normal<5.0Medina HospitalComment on above:Order Comment: A1C IS NOT DUE UNTIL OCTOBER.Result Comment: PERFORMED BY: [facility] [address] [place] [address] PATHOLOGIST AUTHOR AGENT THERESA MULLER M.D.Performed By: #### MG, CMP, CBC, LIPID #### [facility] [address] [place] [address] USACholesterol.total/Cholesterol in HDL [Mass ratio]Serum or plasma total cholesterol/high density lipoprotein (HDL) cholesterol mass rat<5.0 Marymount Hospitalodium [Moles/volume] in Serum or PlasmaOrdered By: Vinay Bunting on 38-21-0117Sieocz [Moles/Vol]139 mmol/LYcqdut306-148 Medina HospitalComment on above:Order Comment: A1C IS NOT DUE UNTIL OCTOBER.Performed By: #### MG, CMP, CBC, LIPID #### [facility] [address] [place] [address] USASodium [Moles/Vol]Sodium [Moles/volume] in Serum or Plasma 136-145Medina HospitalTriglyceride [Mass/volume] in Serum or PlasmaOrdered By: Vinay Bunting on 72-53-1092Etikuaorsdoh [Mass/Vol]151 mg/dL High0-149Medina HospitalComment on above:TRIG ATP III CLASSIFICATIONTRIG less than 150 mg/dL NormalTRIG 150-199 mg/dL Borderline highTRIG 200-500 mg/dL High TRIG greater than 500 mg/dL Very highStandard traceable to the Center for Disease Conrtrol and Prevention (CDC) test method. Triglyceride [Mass/Vol]Triglyceride [Mass/volume] in Serum or PlasmaHigh0-149 Medina HospitalComment on above:TRIG ATP III CLASSIFICATIONTRIG less than 150 mg/dL NormalTRIG 150-199 mg/dL Borderline highTRIG 200-500 mg/dL High TRIG greater than 500 mg/dL Very highStandard traceable to the Center for Disease Conrtrol and Prevention (CDC) test method. Urea nitrogen [Mass/volume] in Serum or PlasmaOrdered By: Vinay Bunting on 66-83-3480Tufj nitrogen [Mass/Vol]33 mg/dLHigh7-25Medina HospitalComment on above:Order Comment: A1C IS NOT DUE UNTIL OCTOBER.Performed By: #### MG, CMP, CBC, LIPID #### [facility] [address] [place] [address] USAUrea nitrogen [Mass/Vol]Urea nitrogen [Mass/volume] in Serum or PlasmaGreenbrier Valley Medical Center7-25Medina HospitalWBC Auto (Bld) [#/Vol] Ordered By: Vinay Bunting on 71-46-7727EPT (Bld) [#/Vol]Leukocytes [#/volume] in Blood by Automated count3.8-11.6FJoint Township District Memorial HospitalAlanine aminotransferase [Enzymatic activity/volume] in Serum or PlasmaOrdered By: Obaydah Daromar on 88-66-4641FVR [Catalytic activity/Vol]17 U/L7-52Medina HospitalAlbumin [Mass/volume] in Serum or Plasma by Bromocresol green (BCG) dye binding methoOrdered By: Obaydah Daromar on 80-64-5495Qgglsmg BCG dye [Mass/Vol]3.9 g/dL3.5-5.7FJoint Township District Memorial HospitalAlkaline phosphatase [Enzymatic activity/volume] in Serum or PlasmaOrdered By: Obaydah Daromar on 94-68-3120YUG [Catalytic activity/Vol]122 U/UWvug47-620PiilwiwolMedina HospitalAspartate aminotransferase [Enzymatic activity/volume] in Serum or PlasmaOrdered By: Obaydah Daromar on 48-78-1731VRK [Catalytic activity/Vol]17 U/Q01-73FqozfporvMedina HospitalBasophils Auto (Bld) [#/Vol]Ordered By: Obaydah Daromar on 91-67-2614Iovgxlzla (Bld) [#/Vol]0.0 10*3/uL0.0-0.2FJoint Township District Memorial HospitalBasophils/100 WBC Auto (Bld) Ordered By: Obaydah Daromar on 36-68-8955Blqlpujye/100 WBC (Bld)0.4 %.Medina HospitalBilirubin.total [Mass/volume] in Serum or PlasmaOrdered By: Obaydah Daromar on 05-42-6979Tvumkcvtk [Mass/Vol]0.5 mg/dL0.3-1.0Medina HospitalCalcium [Mass/volume] in Serum or PlasmaOrdered By: Obaydah Daromar on 24-73-7623Rdqkoxj [Mass/Vol]9.2 mg/dL8.6-10.3FJoint Township District Memorial HospitalCarbon dioxide, total [Moles/volume] in Serum or Plasma Ordered By: Obaydah Daromar on 51-42-3794ST8 [Moles/Vol]24.9 mmol/L21.0-31.0 Medina HospitalChloride [Moles/volume] in Serum or Plasma Ordered By: Comfort Monteiro on 26-31-8285Jbjktovk [Moles/Vol]104 mmol/L98-107 [facility] HospitalCreatinine [Mass/volume] in Serum or Plasma Ordered By: Comfort Ratliffomar on 16-18-2473Hxlmlvtjdf [Mass/Vol]1.55 mg/dLHigh 0.60-1.20Medina HospitalEosinophils Auto (Bld) [#/Vol]Ordered By: Dianne Gaudencioomar on 31-94-1255Krmwuuktyzf (Bld) [#/Vol]0.1 10*3/uL0.0-0.45 Medina HospitalEosinophils/100 WBC Auto (Bld)Ordered By: Dianne Gaudencioomar on 94-96-0893Kmkcpaabqba/100 WBC (Bld)2.7 %.Medina HospitalErythrocyte distribution width Auto (RBC) [Ratio]Ordered By: Comfort Ratliffomar on 44-57-9961Dthsqeuexad distribution width (RBC) [Ratio]16.3 % High11.9-15.3FJoint Township District Memorial HospitalGlobulin Calc (S) [Mass/Vol] Ordered By: Comfort Monteiro on 09-93-7453Jkrlyusl (S) [Mass/Vol]2.4 g/dL Medina HospitalGlucose Glucometer (BldC) [Mass/Vol]Ordered By: Comfort Ratliffomajosse on 74-81-0476Nsfcukp [Mass/Vol]239 mg/dLMedina HospitalComment on above:Random Glucose Reference Range is dependent on time and content of last meal. Glucose of more than 200 mg/dL in a nonstressed, ambulatory subject supports the diagnosis of Diabetes Mellitus.Glucose [Mass/volume] in Serum or PlasmaOrdered By: Comfort Ratliffomar on 72-84-2597Jxijhcu [Mass/Vol]142 mg/bPBwwr07-580CrqqxazytMedina HospitalComment on above: Delta: 334 on 07/21/24-1025ADA recommended reference rangeRandom Glucose Reference Range is dependent on time and content of last meal. Glucose of more than 200 mg/dL in a nonstressed, ambulatory subject supports the diagnosis of Diabetes Mellitus.Hematocrit Auto (Bld) [Volume fraction]Ordered By: Comfort Monteiro on 93-21-7133Fgprxsrngb (Bld) [Volume fraction]32.0 %Low34.0-46.4 Medina HospitalHemoglobin [Mass/volume] in BloodOrdered By: Comfort Ontiverosr on 00-75-5985Rxzbmekbgo (Bld) [Mass/Vol]11.3 g/dLLow11.8-15.4 [facility] HospitalLeukocytes [#/volume] corrected for nucleated erythrocytes in Blood by Automated counOrdered By: Comfort Monteiro on 07-22-2024 WBC corrected for nucl RBC Auto (Bld) [#/Vol]5.4 10*3/uL3.8-11.6FJoint Township District Memorial HospitalLymphocytes Auto (Bld) [#/Vol]Ordered By: Comfort Ratliffomar on 77-75-1928Kcisoyldlvq (Bld) [#/Vol]1.7 10*3/uL1.00-4.8Medina HospitalLymphocytes/100 WBC Auto (Bld)Ordered By: Obalissa Ratliffomar on 03-65-5100Hvyhyqehkni/100 WBC (Bld)31.4 %.[facility] Auto (RBC) [Entitic mass]Ordered By: Comfort Ratliffomajosse on 88-72-3903NID (RBC) [Entitic mass]30.3 pg24.7-34.3FJoint Township District Memorial HospitalMCHC Auto (RBC) [Mass/Vol]Ordered By: Comfort Ratliffomar on 16-13-8463FNEP (RBC) [Mass/Vol]35.3 g/wRMntt97.0-35.0Medina HospitalMCV Auto (RBC) [Entitic vol] Ordered By: Comfort Ratliffomar on 08-22-0630ECK (RBC) [Entitic vol]85.8 jX14-768 Medina HospitalMonocytes Auto (Bld) [#/Vol]Ordered By: Comfort Ratliffomar on 14-98-2596Wajtwaxnf (Bld) [#/Vol]0.3 10*3/uL0.0-0.8Medina HospitalMonocytes/100 WBC Auto (Bld)Ordered By: Comfort Ratliffomar on 51-64-7738Ptsunxsuq/100 WBC (Bld)5.5 %.[facility] Neutrophils Auto (Bld) [#/Vol]Ordered By: Obalissa Ratliffomar on 07-22-2024 Neutrophils (Bld) [#/Vol]3.3 10*3/uL1.8-7.7FJoint Township District Memorial Hospital Neutrophils/100 WBC Auto (Bld)Ordered By: Obalissa Ratliffomar on 07-22-2024 Neutrophils/100 WBC (Bld)60.0 %.Medina HospitalNo Panel InformationOrdered By: Comfort Monteiro on 58-33-7574Givhelhgz GFR (CKD-EPI) 34.723 mL/MinMedina HospitalPharmacy Creatinine Clearance (Chem35.10Medina HospitalNucleated erythrocytes [Presence] in Blood by Automated countOrdered By: Comfort Monteiro on 69-75-0800Lnnvbvium RBC Auto Ql (Bld)0.1 /100{WBC}0-0.5FJoint Township District Memorial HospitalPlatelet mean volume Auto (Bld) [Entitic vol]Ordered By: Comfort Monteiro on 83-00-0892Mhlsabug mean volume (Bld) [Entitic vol]7.3 fL6.3-10.7FJoint Township District Memorial Hospital Platelets Auto (Bld) [#/Vol]Ordered By: Comfort Ratliffomar on 33-26-6824Iyagowhel (Bld) [#/Vol]141 10*3/bNYzq024-352GcwcxhdavMedina HospitalPotassium [Moles/volume] in Serum or PlasmaOrdered By: Comfort Ontiverosr on 07-22-2024 Potassium [Moles/Vol]4.0 mmol/L3.5-5.1FJoint Township District Memorial HospitalProtein [Mass/volume] in Serum or PlasmaOrdered By: Diannedulce maria Ratliffomar on 52-94-2947Ybhcxgq [Mass/Vol]6.3 g/dLLow6.4-8.9Medina HospitalRBC Auto (Bld) [#/Vol]Ordered By: Obberyldadulce maria Daromar on 30-72-4037KJN (Bld) [#/Vol]3.73 10*6/uL 3.60-5.00Marymount Hospitalerum or plasma albumin/globulin mass ratioOrdered By: Obberyldadulce maria Daromar on 18-31-1742Umyikvp/Globulin [Mass ratio]1.6 {ratio}Marymount Hospitalerum or plasma anion gap determination Ordered By: Obberyldadulce maria Ratliffomar on 84-26-9357Rpnal gap [Moles/Vol]16.1 mmol/LHigh 6.0-15.0Marymount Hospitalodium [Moles/volume] in Serum or PlasmaOrdered By: Obberyldadulce maria Daromar on 16-90-5839Hnpabq [Moles/Vol]141 mmol/L 136-145Medina HospitalUrea nitrogen [Mass/volume] in Serum or PlasmaOrdered By: Obberyldadulce maria Daromar on 77-26-0787Ydkw nitrogen [Mass/Vol]37 mg/dL High7-25Medina HospitalWBC Auto (Bld) [#/Vol]Ordered By: Obberyldadulce maria Ratliffomar on 59-28-7558PZV (Bld) [#/Vol]5.4 10*3/uL3.8-11.6FJoint Township District Memorial HospitalActivated partial thromboplastin time (aPTT) in platelet poor plasma by coagulation aOrdered By: Bakari Barboza on 86-31-2460yXEG Coag (PPP) [Time]35.2 s25.1-36.5FJoint Township District Memorial HospitalComment on above:A hematocrit value greater than 55% may lead to inaccurate results in coagulation testing. Patientshaving hematocrit values >55% require a special collection tube for coagulation studies. Please contact the laboratory at [phone] for redraw instructions.Alanine aminotransferase [Enzymatic activity/volume] in Serum or PlasmaOrdered By: Bakari Barboza on 80-92-6284FCF [Catalytic activity/Vol] 18 U/L7-52Medina HospitalAlbumin [Mass/volume] in Serum or Plasma by Bromocresol green (BCG) dye binding methoOrdered By: Bakari Barboza on 99-53-3120Jjroptc BCG dye [Mass/Vol]4.1 g/dL3.5-5.7FJoint Township District Memorial HospitalAlkaline phosphatase [Enzymatic activity/volume] in Serum or PlasmaOrdered By: Bakari Barboza on 30-83-3383DFX [Catalytic activity/Vol]147 U/JUnrx32-988 Medina HospitalAspartate aminotransferase [Enzymatic activity/volume] in Serum or PlasmaOrdered By: Bakari Barboza on 12-78-1817GFX [Catalytic activity/Vol]17 U/X79-28XhywdmbpiMedina HospitalBasophils Auto (Bld) [#/Vol]Ordered By: Bakari Barboza on 78-73-3301Rspizxono (Bld) [#/Vol] 0.0 10*3/uL0.0-0.2FJoint Township District Memorial HospitalBasophils/100 WBC Auto (Bld) Ordered By: Bakari Barboza on 67-13-9103Yhackqyfa/100 WBC (Bld)0.7 %.Medina HospitalBilirubin Test strip Ql (U)Ordered By: Bakari Barboza on 24-83-8603Lqicngmtn Ql (U)NegativeNegativeMedina Hospital Bilirubin.direct [Mass/volume] in Serum or PlasmaOrdered By: Bakari Barboza on 83-88-6270Hyuabbdpt.direct [Mass/Vol]0.10 mg/dL0.03-0.18FJoint Township District Memorial HospitalBilirubin.total [Mass/volume] in Serum or PlasmaOrdered By: Bakari Barboza on 08-78-0170Snfhotput [Mass/Vol]0.4 mg/dL0.3-1.0Medina HospitalCOVID CepheidOrdered By: Comfort Monteiro on 57-65-2465HDHW-CoV-2 (COVID-19) Ab IA QlNegativeNegativeMedina HospitalComment on above:This is a duplicate Cepheid Xpert Xpress CoV-2/Flu/RSV Plus RNA by RT-PCR result to be used for statistical tracking purpose only.SARS-CoV-2 (COVID-19) RNA DIPESH+probe Ql (Unsp spec)Medina HospitalCalcium [Mass/volume] in Serum or PlasmaOrdered By: Bakari Barboza on 97-54-3085Zubgwfy [Mass/Vol]9.3 mg/dL8.6-10.3FJoint Township District Memorial HospitalCarbon dioxide, total [Moles/volume] in Serum or PlasmaOrdered By: Bakari Barboza on 50-54-7544JK8 [Moles/Vol]26.3 mmol/L21.0-31.0Medina HospitalChloride [Moles/volume] in Serum or PlasmaOrdered By: Bakari Barboza on 95-98-4982Qvenitex [Moles/Vol]103 mmol/I61-686LesfiggucMedina HospitalCholesterol [Mass/volume] in Serum or PlasmaOrdered By: Comfort Monteiro on 07-21-2024 Cholesterol [Mass/Vol]112 mg/lIVje899-336JepjjrkihMedina Hospital Comment on above:Chol less than 200 mg/dl low riskChol 201-239 mg/dl borderline riskChol 240 mg/dl and greater high riskCholesterol in LDL Calc [Mass/Vol] Ordered By: Comfort Monteiro on 93-57-7705Tnfcujfxznl in LDL [Mass/Vol]46 mg/dL 0-100Medina HospitalComment on above:LDL ATP III CLASSIFICATIONLDL less than 100 mg/dL OptimalLDL 100-129 mg/dL Near or above iyhhgkuIEJ987-944 mg/dL Borderline highLDL 160-189 mg/dL HighLDL greater than 189 mg/dL Very highCholesterol in VLDL Calc [Mass/Vol]Ordered By: Comfort Monteiro on 76-19-9623Pqfyurkmdsz in VLDL [Mass/Vol]26 mg/dLMedina HospitalColor Auto (U)Ordered By: Bakari Barboza on 71-94-5455Jmdkt (U) Light-yellowYellowMedina HospitalCreatine kinase [Enzymatic activity/volume] in Serum or PlasmaOrdered By: Bakari Barboza on 96-49-3176AV [Catalytic activity/Vol]56 U/F56-114NicsforkiMedina HospitalCreatinine [Mass/volume] in Serum or PlasmaOrdered By: Bakari Barboza on 09-23-4777Drhbamzwoi [Mass/Vol]1.64 mg/dLHigh0.60-1.20Medina HospitalEosinophils Auto (Bld) [#/Vol]Ordered By: Bakari Barboza on 65-09-0415Htssjyolluv (Bld) [#/Vol] 0.1 10*3/uL0.0-0.45Medina HospitalEosinophils/100 WBC Auto (Bld)Ordered By: Bakari Barboza on 62-26-3780Xhjgjagomey/100 WBC (Bld)2.5 %. Medina HospitalErythrocyte distribution width Auto (RBC) [Ratio]Ordered By: Bakari Barboza on 90-06-9849Dfoesoxluiq distribution width (RBC) [Ratio]16.4 %High11.9-15.3FJoint Township District Memorial HospitalGlobulin Calc (S) [Mass/Vol]Ordered By: Bakari Barboza on 60-81-3454Dputknuc (S) [Mass/Vol]2.5 g/dL Medina HospitalGlucose [Mass/volume] in Serum or PlasmaOrdered By: Bakari Barboza on 84-53-2512Xtwsedj [Mass/Vol]334 mg/vZJlla41-868YhjplyqluMedina HospitalComment on above:ADA recommended reference rangeRandom Glucose Reference Range is dependent on time and content of last meal. Glucose of more than 200 mg/dL in a nonstressed, ambulatory subject supports the diagnosisof Diabetes Mellitus.Glucose [Mass/volume] in Urine by Test strip Ordered By: Bakari Barboza on 12-88-4320Fvbecyq Test strip (U) [Mass/Vol]>=1000 mg/dLHighNormalMedina HospitalGlucose mean value [Mass/volume] in Blood Estimated from glycated hemoglobinOrdered By: Comfort Monteiro on 39-24-2981Bhrrgcw glucose Estimated from glycated hemoglobin (Bld) [Mass/Vol]174 mg/dLMedina HospitalHematocrit Auto (Bld) [Volume fraction] Ordered By: Bakari Barboza on 36-39-8939Otzctikvke (Bld) [Volume fraction]31.7 %Low 34.0-46.4FJoint Township District Memorial HospitalHemoglobin A1c percentageOrdered By: Comfort Monteiro on 84-54-2156KhT0x (Bld) [Mass fraction]7.7 %High4.3-5.6 Medina HospitalComment on above:Increased risk for diabetes: 5.7 - 6.4diabetes: >6.4glycemic control for adults with diabetes: <7.0 Hemoglobin Test strip Ql (U)Ordered By: Bakari Barboza on 50-19-4606Ddnoqlpzfi Ql (U)NegativeNegSelect Medical Specialty Hospital - Southeast OhioHemoglobin [Mass/volume] in BloodOrdered By: Bakari Barboza on 95-62-0579Ypvzfhjlbi (Bld) [Mass/Vol]11.0 g/dL Low11.8-15.4FJoint Township District Memorial HospitalINR in Platelet poor plasma by Coagulation assayOrdered By: Bakari Barboza on 93-50-4856ENC Coag (PPP) [Relative time]1.1 {INR}Medina HospitalComment on above:INR Therapeutic Range A) Pre- [...] strip Ql (U)Ordered By: Bakari Barboza on 71-19-2011Ooinkkd Ql (U)Negative NegativeMedina HospitalLeukocyte esterase [Presence] in Urine by Test stripOrdered By: Bakari Barboza on 63-23-1535Pmyznmlut esterase Test strip Ql (U)NegativeNegativeMedina HospitalLeukocytes [#/volume] corrected for nucleated erythrocytes in Blood by Automated counOrdered By: Bakari Barboza on 51-42-7668NKY corrected for nucl RBC Auto (Bld) [#/Vol]4.8 10*3/uL 3.8-11.6FJoint Township District Memorial HospitalLymphocytes Auto (Bld) [#/Vol]Ordered By: Bakari Barboza on 24-02-2617Gflxkhzlbqo (Bld) [#/Vol]1.2 10*3/uL1.00-4.8 Medina HospitalLymphocytes/100 WBC Auto (Bld)Ordered By: Bakari Barboza on 75-23-0352Yobpvasbyfi/100 WBC (Bld)24.6 %.[facility] Auto (RBC) [Entitic mass]Ordered By: Bakari Barboza on 11-93-5664GNM (RBC) [Entitic mass]30.2 pg24.7-34.3FAshtabula County Medical CenterHC Auto (RBC) [Mass/Vol]Ordered By: Bakari Barboza on 09-52-9043LMOV (RBC) [Mass/Vol]34.8 g/dL32.0-35.0[facility]V Auto (RBC) [Entitic vol] Ordered By: Bakari Barboza on 52-46-1674BEP (RBC) [Entitic vol]86.7 hG46-084 [facility] HospitalMagnesium [Mass/volume] in Serum or Plasma Ordered By: Ottoniel Bland on 18-09-4976Wppkytrat [Mass/Vol]1.7 mg/dLLow1.9-2.7 [facility] HospitalMonocyte distribution width [Entitic volume] in Blood by AutomatedOrdered By: Bakari Barboza on 86-35-9299Gsuqzwqa distribution width Auto (Bld) [Entitic vol]20.33 %High0.00-20.00[facility] HospitalComment on above:For adults in ED, MDW > 20.0 may be associated with a higher risk of sepsis during the first 12 hrs of hospital admissionMonocytes Auto (Bld) [#/Vol]Ordered By: Bakari Barboza on 91-79-9840Rcsacoikm (Bld) [#/Vol] 0.2 10*3/uL0.0-0.8[facility] HospitalMonocytes/100 WBC Auto (Bld) Ordered By: Bakari Barboza on 03-94-4347Kofcaiqri/100 WBC (Bld)4.0 %.[facility] HospitalMuscle specific receptor tyrosine kinase Ab [Units/volume] in Serum by ImmunoassayOrdered By: Ottoniel Bland on 07-21-2024 Muscle specific receptor tyrosine kinase Ab IA Qn (S)<1.0 U/mL.[facility]ina HospitalComment on above:Reference Range: Negative: <1.0 Positive: [...] J Autoimmunity 2014;52:90-100.2. Fred MG etal. PNAS 2013;110(51);38817-61469.3. Enrique E et al. Neurology 2006;67:505-507.This test was developed and its performance characteristicsdetermined by [facility]. It has not been cleared or approvedby the Food and Drug Administration.Performed at: [facility] [address] [id number] Director: Trae Olivarez MD, Phone: [phone] peptide B [Mass/Vol]Ordered By: Bakari Barboza on 07-21-2024 Natriuretic peptide B (Bld) [Mass/Vol]42.0 pg/mL5-100[facility] HospitalNeutrophils Auto (Bld) [#/Vol]Ordered By: Bakari Barboza on 07-21-2024 Neutrophils (Bld) [#/Vol]3.3 10*3/uL1.8-7.7FJoint Township District Memorial Hospital Neutrophils/100 WBC Auto (Bld)Ordered By: Bakari Barboza on 07-21-2024 Neutrophils/100 WBC (Bld)68.2 %.[facility]ina HospitalNitrite Test strip Ql (U)Ordered By: Bakari Barboza on 42-13-0959Xxphvxb Ql (U)NegativeNegative [facility] HospitalNo Panel InformationOrdered By: Ottoniel Bland on 72-94-6014Xtuzvdgogrflb Receptor Binding Ab<0.03 nmol/L0.00-0.24[facility] HospitalComment on above:Negative: 0.00 - 0.24 Borderline: 0.25 - 0.40 Positive: >0.40Performed at: [facility] [id number] Director: Keith Quijano MD, Phone: [phone] Panel InformationOrdered By: Bakari Barboza on 30-34-6804Gfmvjdzrl GFR (CKD-EPI) 32.449 mL/MinMedina HospitalPharmacy Creatinine Clearance (Chem33.01[facility] HospitalNucleated erythrocytes [Presence] in Blood by Automated countOrdered By: Bakari Barboza on 21-38-3589Wtskskgcn RBC Auto Ql (Bld)0.0 /100{WBC}0-0.5FJoint Township District Memorial HospitalPlatelet mean volume Auto (Bld) [Entitic vol]Ordered By: Bakari Barboza on 00-74-2955Aecwwmeh mean volume (Bld) [Entitic vol]7.1 fL6.3-10.7FJoint Township District Memorial Hospital Platelets Auto (Bld) [#/Vol]Ordered By: Bakari Barboza on 97-86-3571Smbockjfm (Bld) [#/Vol]141 10*3/xWYwd901-260IiqmspwwaMedina HospitalPotassium [Moles/volume] in Serum or PlasmaOrdered By: Bakari Barboza on 04-03-7189Fitzzybpi [Moles/Vol]4.5 mmol/L3.5-5.1FJoint Township District Memorial HospitalProtein Test strip (U) [Mass/Vol]Ordered By: Bakari Barboza on 25-45-1932Nswrxfm (U) [Mass/Vol] NegativeNegativeMedina HospitalProtein [Mass/volume] in Serum or PlasmaOrdered By: Bakari Barboza on 34-57-9771Gzrqxlo [Mass/Vol]6.6 g/dL6.4-8.9 [facility] HospitalProthrombin time (PT)Ordered By: Bakari Barboza on 51-33-1126KG Coag (PPP) [Time]12.3 s9.0-12.9[facility] Comment on above:A hematocrit value greater than 55% may lead to inaccurate results in coagulation testing. Patientshaving hematocrit values >55% require a special collection tube for coagulation studies. Please contact the laboratory at [phone] for redraw instructions.RBC Auto (Bld) [#/Vol]Ordered By: Bakari Barboza on 14-14-6408UUF (Bld) [#/Vol]3.66 10*6/uL3.60-5.00[facility] Hospitalerum acetylcholine receptor blocking antibody/total acetylcholine antibody ratioOrdered By: Ottoniel Bland on 63-30-2978Hximimccdnvff receptor blocking Ab/Acetylcholine Ab.total (S) [Molar fraction]19 %0-25[facility] HospitalComment on above:This test was developed and its performance characteristicsdetermined by [facility]. It has not been cleared orapproved by the Food and Drug Administration. Negative: 0 - 25 Borderline: 26 - 30 Positive: >30Performed at: [address] [id number] Director: Keith Quijano MD, Phone: [phone] or plasma albumin/globulin mass ratioOrdered By: Bakari Barboza on 07-21-2024 Albumin/Globulin [Mass ratio]1.6 {ratio}[facility] Hospitalerum or plasma anion gap determinationOrdered By: Bakari Barboza on 10-45-7427Qxodr gap [Moles/Vol]13.2 mmol/L6.0-15.0[facility] Hospitalerum or plasma high density lipoprotein (HDL) cholesterol measurementOrdered By: Comfort Monteiro on 81-62-6871Bdrhfuqzueh in HDL [Mass/Vol]40 mg/bU17-81EgryyrynaMedina HospitalComment on above:HDL CHOL ATP-III CLASSIFICATION Cardiovascular RiskHDL > or equal to 60 mg/dL LOWHDL < 40 mg/dL HIGHSerum or plasma non-glucuronidated bilirubin measurement (mass/volume)Ordered By: Bakari Barboza on 13-29-4517Qksogthvd.indirect [Mass/Vol]0.3 mg/dLMarymount Hospitalerum or plasma total cholesterol/high density lipoprotein (HDL) cholesterol mass ratOrdered By: Comfort Monteiro on 07-21-2024 Cholesterol.total/Cholesterol in HDL [Mass ratio]2.8 {ratio}<5.0Marymount Hospitalodium [Moles/volume] in Serum or PlasmaOrdered By: Bakari Barboza on 75-17-4207Kqinag [Moles/Vol]138 mmol/B456-945RnkmzsgtuMarymount Hospitalpecific gravity of Urine by RefractometryOrdered By: Bakari Barboza on 75-82-7128Jtzahprs gravity Refractometry (U) [Rel density]1.0181.001-1.030 Medina HospitalComment on above:Rechecked by refractometer Triglyceride [Mass/volume] in Serum or PlasmaOrdered By: Comfort Monteiro on 41-64-8794Xikcreruigqf [Mass/Vol]132 mg/dL0-149[facility] Comment on above:TRIG ATP III CLASSIFICATIONTRIG less than 150 mg/dL NormalTRIG 150-199 mg/dL Borderline highTRIG 200-500 mg/dL High TRIG greater than 500 mg/dL Very highStandard traceable to the Center for Disease Conrtrol and Prevention (CDC) test method.Troponin I.cardiac [Mass/volume] in Serum or Plasma by Detection limit <= 0.01 ng/Ordered By: Bakari Barboza on 74-20-6691Jlflcotg I.cardiac DL <= 0.01 ng/mL [Mass/Vol]4.4 pg/mL0.0-15.0[facility] HospitalUrea nitrogen [Mass/volume] in Serum or PlasmaOrdered By: Bakari Barboza on 13-70-3894Olwu nitrogen [Mass/Vol]43 mg/dLHigh7-25[facility]ina HospitalUrine appearanceOrdered By: Bakari Barboza on 53-35-9291Ywdimlaoqx (U)Clear ClearMedina HospitalUrobilinogen Test strip (U) [Mass/Vol] Ordered By: Bakari Barboza on 99-20-3668Xpzvrllrivtp (U) [Mass/Vol]Normal mg/dL NormalMedina HospitalVaricella zoster virus DNA [Presence] in Cerebral spinal fluid by DIPESH with probe deteOrdered By: Ottoniel Bland on 23-99-8587JHW DNA DIPESH+probe Ql (CSF)8 %0-45[facility] Comment on above:This test was developed and its performance characteristicsdetermined by [facility]. It has not been cleared orapproved by the Food and Drug Administration. Interpretive Information: Negative: 0 - 45% Po sitive: > 45%No single value for AChR-modulating antibody shouldbe used as a sole basis for diagnosis or responseto therapy.Performed at: [address] [id number] Director: Keith Quijano MD, Phone: [phone] Auto (Bld) [#/Vol]Ordered By: Bakari Barboza on 45-34-8336IYL (Bld) [#/Vol]4.8 10*3/uL3.8-11.6FJoint Township District Memorial Hospital pH Test strip (U)Ordered By: Bakari Barboza on 09-10-8862oX (U)6.0 [pH]5.0-9.0 [facility] HospitalAlanine aminotransferase [Enzymatic activity/volume] in Serum or PlasmaOrdered By: Vinay Matta on 15-59-8121HQK [Catalytic activity/Vol]18 U/L7-52[facility] HospitalAlbumin [Mass/volume] in Serum or Plasma by Bromocresol green (BCG) dye binding metho Ordered By: Vinay Matta on 30-65-9955Fdmltly BCG dye [Mass/Vol]4.0 g/dL 3.5-5.7FJoint Township District Memorial HospitalAlkaline phosphatase [Enzymatic activity/volume] in Serum or PlasmaOrdered By: Vinay Matta on 91-83-9964RPW [Catalytic activity/Vol]104 U/U83-001RdhqszegdMedina HospitalAspartate aminotransferase [Enzymatic activity/volume] in Serum or PlasmaOrdered By: Vinay Bunting on 45-33-3703QVG [Catalytic activity/Vol]21 U/N91-20RbmnjurlxMedina HospitalBasophils Auto (Bld) [#/Vol]Ordered By: Vinay Bunting on 90-64-4988Nkewsfuap (Bld) [#/Vol]0.0 10*3/uL0.0-0.2FJoint Township District Memorial HospitalBasophils/100 WBC Auto (Bld)Ordered By: Vinay Bunting on 05-24-2024 Basophils/100 WBC (Bld)0.2 %.[facility]ina HospitalBilirubin.total [Mass/volume] in Serum or PlasmaOrdered By: Vinay Bunting on 05-24-2024 Bilirubin [Mass/Vol]0.5 mg/dL0.3-1.0[facility] HospitalCalcium [Mass/volume] in Serum or PlasmaOrdered By: Vinay Bunting on 97-36-9907Reqgtcy [Mass/Vol]8.6 mg/dL8.6-10.3FJoint Township District Memorial HospitalCarbon dioxide, total [Moles/volume] in Serum or PlasmaOrdered By: Vinay Bunting on 05-24-2024 CO2 [Moles/Vol]29.0 mmol/L21.0-31.0[facility] HospitalChloride [Moles/volume] in Serum or PlasmaOrdered By: Vinay Bunting on 05-24-2024 Chloride [Moles/Vol]101 mmol/R35-881AywjegwmxMedina HospitalCholesterol [Mass/volume] in Serum or PlasmaOrdered By: Vinay Bunting on 05-24-2024 Cholesterol [Mass/Vol]107 mg/gPMqq428-891BevscgpeaMedina Hospital Comment on above:Chol less than 200 mg/dl low riskChol 201-239 mg/dl borderline riskChol 240 mg/dl and greater high riskCholesterol in LDL Calc [Mass/Vol] Ordered By: Vinay Bunting on 17-01-6376Bpuionaysjg in LDL [Mass/Vol]46 mg/dL 0-100Medina HospitalComment on above:LDL ATP III CLASSIFICATIONLDL less than 100 mg/dL OptimalLDL 100-129 mg/dL Near or above zvwgytiYMQ628-300 mg/dL Borderline highLDL 160-189 mg/dL HighLDL greater than 189 mg/dL Very highCholesterol in VLDL Calc [Mass/Vol]Ordered By: Vinay Matta on 81-46-0125Gxnfsdmkhxq in VLDL [Mass/Vol]21 mg/dLMedina HospitalCreatinine [Mass/volume] in Serum or PlasmaOrdered By: Vinay Matta on 56-03-3095Qfepiwyrvt [Mass/Vol]1.26 mg/dLHigh0.60-1.20[facility] HospitalEosinophils Auto (Bld) [#/Vol]Ordered By: Vinay Matta on 05-24-2024 Eosinophils (Bld) [#/Vol]0.2 10*3/uL0.0-0.45[facility] Eosinophils/100 WBC Auto (Bld)Ordered By: Vinay Matta on 05-24-2024 Eosinophils/100 WBC (Bld)2.6 %.[facility] HospitalErythrocyte distribution width Auto (RBC) [Ratio]Ordered By: Vinay Matta on 05-24-2024 Erythrocyte distribution width (RBC) [Ratio]16.8 %High11.9-15.3FJoint Township District Memorial HospitalGlobulin Calc (S) [Mass/Vol]Ordered By: Vinay Matta on 47-01-3251Wqutmgws (S) [Mass/Vol]2.2 g/dLMedina Hospital Glucose [Mass/volume] in Serum or PlasmaOrdered By: Vinay Matta on 05-24-2024 Glucose [Mass/Vol]133 mg/dQChdh44-955YgwlcwdqjMedina HospitalComment on above:ADA recommended reference rangeRandom Glucose Reference Range is dependent on time and content of last meal. Glucose of more than 200 mg/dL in a nonstressed, ambulatory subject supports the diagnosisof Diabetes Mellitus. Glucose mean value [Mass/volume] in Blood Estimated from glycated hemoglobin Ordered By: Vinay Matta on 76-01-7400Rxgpnrd glucose Estimated from glycated hemoglobin (Bld) [Mass/Vol]151 mg/dLMedina HospitalHematocrit Auto (Bld) [Volume fraction]Ordered By: Vinay Bunting on 59-24-4974Flgniqpqcf (Bld) [Volume fraction]32.1 %Low34.0-46.4FJoint Township District Memorial Hospital Hemoglobin A1c percentageOrdered By: Vinay Bunting on 81-76-1213HiM3b (Bld) [Mass fraction]6.9 %High4.3-5.6FJoint Township District Memorial HospitalComment on above:Increased risk for diabetes: 5.7 - 6.4diabetes: >6.4glycemic control for adults with diabetes: <7.0Hemoglobin [Mass/volume] in BloodOrdered By: Vinay Bunting on 49-93-0154Igcjfyfdgh (Bld) [Mass/Vol]10.9 g/dLLow11.8-15.4FJoint Township District Memorial HospitalLeukocytes [#/volume] corrected for nucleated erythrocytes in Blood by Automated counOrdered By: Vinay Bunting on 05-24-2024 WBC corrected for nucl RBC Auto (Bld) [#/Vol]5.9 10*3/uL3.8-11.6FJoint Township District Memorial HospitalLymphocytes Auto (Bld) [#/Vol]Ordered By: Vinay Bunting on 77-49-3423Qnmhksqhevd (Bld) [#/Vol]1.1 10*3/uL1.00-4.8Medina HospitalLymphocytes/100 WBC Auto (Bld)Ordered By: Vinay Bunting on 84-20-8447Qbtwitsujms/100 WBC (Bld)17.9 %.[facility]H Auto (RBC) [Entitic mass]Ordered By: Vinay Bunting on 97-87-0451MYQ (RBC) [Entitic mass]29.9 pg24.7-34.3FJoint Township District Memorial HospitalMCHC Auto (RBC) [Mass/Vol]Ordered By: Vinay Bunting on 95-91-4260PTOS (RBC) [Mass/Vol]34.0 g/dL 32.0-35.0Medina HospitalMCV Auto (RBC) [Entitic vol]Ordered By: Vinay Bunting on 84-13-1092UCW (RBC) [Entitic vol]88.1 cP14-805BzgkcmjhcMedina HospitalMagnesium [Mass/volume] in Serum or PlasmaOrdered By: Vinay Bunting on 26-53-1914Dqceqnxhj [Mass/Vol]1.0 mg/dLLow1.9-2.7FJoint Township District Memorial HospitalMonocytes Auto (Bld) [#/Vol]Ordered By: Vinay Bunting on 93-35-5711Wxlvknyez (Bld) [#/Vol]0.3 10*3/uL0.0-0.8[facility] HospitalMonocytes/100 WBC Auto (Bld)Ordered By: Vinay Bunting on 05-24-2024 Monocytes/100 WBC (Bld)5.4 %.[facility] HospitalNeutrophils Auto (Bld) [#/Vol]Ordered By: Vinay Bunting on 92-26-9775Tjpeerowcef (Bld) [#/Vol] 4.4 10*3/uL1.8-7.7FJoint Township District Memorial HospitalNeutrophils/100 WBC Auto (Bld)Ordered By: Vinay Bunting on 67-48-2511Ercakqdmnlr/100 WBC (Bld)73.9 %. [facility] HospitalNo Panel InformationOrdered By: Vinay Bunting on 20-49-8547Fzrrqrupv GFR (CKD-EPI)44.522 mL/MinMedina HospitalPharmacy Creatinine Clearance (ChemN/AFJoint Township District Memorial Hospital Nucleated erythrocytes [Presence] in Blood by Automated countOrdered By: Vinay Bunting on 95-88-1605Vpzqtlekj RBC Auto Ql (Bld)0.1 /100{WBC}0-0.5FJoint Township District Memorial HospitalPlatelet mean volume Auto (Bld) [Entitic vol]Ordered By: Vinay Bunting on 95-60-0671Allhnezm mean volume (Bld) [Entitic vol]7.3 fL 6.3-10.7FJoint Township District Memorial HospitalPlatelets Auto (Bld) [#/Vol]Ordered By: Vinay Bunting on 71-04-0060Bnajkcjvj (Bld) [#/Vol]156 10*3/eG312-789RkxjnocsoMedina HospitalPotassium [Moles/volume] in Serum or PlasmaOrdered By: Vinay Bunting on 18-02-8704Vmnsamtpr [Moles/Vol]4.7 mmol/L3.5-5.1FJoint Township District Memorial HospitalProtein [Mass/volume] in Serum or PlasmaOrdered By: Vinay Bunting on 97-04-3353Mcpjgki [Mass/Vol]6.2 g/dLLow6.4-8.9[facility] HospitalRBC Auto (Bld) [#/Vol]Ordered By: Vinay Bunting on 25-94-1423YEK (Bld) [#/Vol]3.65 10*6/uL3.60-5.00[facility] Hospitalerum or plasma albumin/globulin mass ratioOrdered By: Vinay Bunting on 21-41-1489Lctsmqn/Globulin [Mass ratio]1.8 {ratio}[facility] Hospitalerum or plasma anion gap determinationOrdered By: Vinay Bunting on 54-51-1783Bxetf gap [Moles/Vol]14.7 mmol/L6.0-15.0[facility] Hospitalerum or plasma high density lipoprotein (HDL) cholesterol measurement Ordered By: Vinay Bunting on 95-56-1098Wwwazouroms in HDL [Mass/Vol]40 mg/dL 23-92Med[facility] HospitalComment on above:HDL CHOL ATP-III CLASSIFICATION Cardiovascular RiskHDL > or equal to 60 mg/dL LOWHDL < 40 mg/dL HIGHSerum or plasma total cholesterol/high density lipoprotein (HDL) cholesterol mass ratOrdered By: Vinay Bunting on 42-02-6754Ppejcdaxxtq.total/Cholesterol in HDL [Mass ratio]2.7 {ratio}<5.0Marymount Hospitalodium [Moles/volume] in Serum or PlasmaOrdered By: Vinay Bunting on 84-26-9711Uoodee [Moles/Vol]140 mmol/R625-610UsteyrkhdMedina HospitalTriglyceride [Mass/volume] in Serum or PlasmaOrdered By: Vinay Bunting on 05-24-2024 Triglyceride [Mass/Vol]106 mg/dL0-149Med[facility] HospitalComment on above:TRIG ATP III CLASSIFICATIONTRIG less than 150 mg/dL NormalTRIG 150-199 mg/dL Borderline highTRIG 200-500 mg/dL High TRIG greater than 500 mg/dL Very highStandard traceable to the Center for Disease Conrtrol and Prevention (CDC) test method.Urate [Mass/volume] in Serum or PlasmaOrdered By: Vinay Bunting on 77-58-9590Onvfn [Mass/Vol]3.9 mg/dL2.3-6.6FJoint Township District Memorial HospitalUrea nitrogen [Mass/volume] in Serum or PlasmaOrdered By: Vinay Bunting on 23-30-2271Bxus nitrogen [Mass/Vol]26 mg/dLHigh7-25[facility] HospitalWBC Auto (Bld) [#/Vol]Ordered By: Vinay Bunting on 30-47-8943VAY (Bld) [#/Vol]5.9 10*3/uL3.8-11.6FJoint Township District Memorial HospitalConsultation Noteon 29-84-6453Rizeakzhaqwc [id number]#1.00TIFToledo HospitalRetail - Clinical Noteon 54-65-3764Ahhrwp - Clinical [id number]#1.00[facility]Ret[facility] - Clinical Note [id number]#1.00[facility] HospitalCHEMISTRYOrdered By: SYSTEM SYSTEM on 85-40-9220Lmwbbys [Mass/Vol]4.2 g/dL Normal3.3 - 5.0 gm/dLRemisol ChemAlbumin/Globulin [Mass ratio]1.8 {ratio}Normal 1.1 - 2.2Remisol ChemALP [Catalytic activity/Vol]112 [iU]/dHigh21 - 98 Int._Unit/LRemisol ChemALT No additional P-5'-P [Catalytic activity/Vol]24 [iU]/dNormal6 - 46 Int._Unit/LRemisol ChemAnion gap [Moles/Vol]18 mmol/LHigh6 - 16 mEq/LRemisol ChemAST [Catalytic activity/Vol]31 [iU]/dNormal5 - 43 Int._Unit/LRemisol ChemBilirubin [Mass/Vol]0.5 mg/dLNormal0.0 - 1.1 mg/dLRemisol ChemCalcium [Mass/Vol]8.7 mg/dLLow8.9 - 11.1 mg/dLRemisol ChemChloride [Moles/Vol]99 mmol/UAec432 - 111 mmol/LRemisol ChemCO2 [Moles/Vol]25 mmol/L Angyyb08 - 31 mmol/LRemisol ChemCreatinine [Mass/Vol]1.7 mg/dLHigh0.5 - 1.3 mg/dLRemisol JqtgfYWY15 mL/min/1.73 m2Low>=59mL/min/1.73 b0Jexszpo ChemFerritin [Mass/Vol]41 ng/zAOqeebt72 - 307 ng/mLRemisol ChemGlobulin (S) [Mass/Vol]2.4 g/dLNormal1.4 - 4.0 gm/dLRemisol ChemGlucose [Mass/Vol]188 mg/oIWgayqc59 - 199 mg/dLRemisol ChemIron [Mass/Vol]70 ug/sATaeeme88 - 153 mcg/dLRemisol ChemIron binding capacity [Mass/Vol]433 ug/eBXlon667 - 400 mcg/dLRemisol ChemMagnesium [Mass/Vol]1.3 mg/dLNormal1.3 - 2.4 mg/dLRemisol ChemPotassium [Moles/Vol]3.8 mmol/LNormal3.5 - 5.3 mmol/LRemisol ChemProtein [Mass/Vol]6.6 g/dLNormal6.0 - 7.8 gm/dLRemisol ChemSodium [Moles/Vol]138 mmol/NTnubay386 - 145 mmol/LRemisol ChemTransferrin [Mass/Vol]309 mg/pNMkcmdd477 - 370 mg/dLRemisol ChemUrea nitrogen [Mass/Vol]36 mg/dLHigh5 - 21 mg/dLRemisol ChemUrea nitrogen/Creatinine [Mass ratio]21 mg/cvQdze94 - 20Remisol ChemCOAGULATIONOrdered By: Karlie Gomez on 40-99-5614BYM Coag (PPP) [Relative time]1.10 {INR}Invalid Interpretation CodeB[facility]ST[facility] [place] Auto CoagComment on above:Interpretive Data: INR results are specifically intended to assess patients stabilized on long-term Anticoagulation therapy suggested INR s Less Intensive Anticoagulation 2.0 3.0 Conventional Range 3.0 4.5PT Coag (PPP) [Time]12.3 sNormal9.4 - 12.5 second(s) [facility] [place] Auto CoagComment on above:Interpretive Data: 15 days [...] the same coagulation reagent and instrumentation as [facility] [place]. Currently there are no coagulation studies available worldwide for children to 14 days, andno normal ranges.HEMATOLOGYOrdered By: SYSTEM SYSTEM on 56-35-6706Kxzybblutvz distribution width (RBC) [Ratio]17.1 %High10.9 - 14.2 %Remisol HemeHematocrit (Bld) [Volume fraction]31.2 %Low34.0 - 46.0 %Remisol HemeHemoglobin (Bld) [Mass/Vol]10.4 g/dLLow12.0 - 16.0 gm/dLRemisol HemeMCH (RBC) [Entitic mass]28.7 ntFbipds91.0 - 34.0 pgRemisol HemeMCHC (RBC) [Mass/Vol]33.5 g/iZCmpisb63.4 - 36.0 gm/dLRemisol HemeMCV (RBC) [Entitic vol]85.7 mUBhfurx59.0 - 100.0 fLRemisol HemePlatelet mean volume (Bld) [Entitic vol]7.5 fLNormal6.4 - 10.8 fLRemisol HemePlatelets (Bld) [#/Vol]152.0 E9/HLrypdx214.0 - 500.0 E9/LRemisol HemeRBC (Bld) [#/Vol]3.6 E12/LLow4.3 - 5.9 E12/LRemisol HemeWBC corrected for nucl RBC Auto (Bld) [#/Vol]5.3 E9/LNormal4.0 - 11.0 E9/LRemisol HemeAlanine aminotransferase [Enzymatic activity/volume] in Serum or PlasmaOrdered By: Vinay Bunting on 50-15-3246YYP [Catalytic activity/Vol]24 U/L7-52[facility] HospitalAlbumin [Mass/volume] in Serum or Plasma by Bromocresol green (BCG) dye binding methoOrdered By: Vinay Bunting on 51-48-6713Zlxkaet BCG dye [Mass/Vol]4.2 g/dL3.5-5.7FJoint Township District Memorial HospitalAlkaline phosphatase [Enzymatic activity/volume] in Serum or PlasmaOrdered By: Vinay Bunting on 86-28-0357UAA [Catalytic activity/Vol]105 U/P46-505EzdhnropvMedina HospitalAspartate aminotransferase [Enzymatic activity/volume] in Serum or PlasmaOrdered By: Vinay Bunting on 79-98-2713HHB [Catalytic activity/Vol]24 U/L 13-39[facility] HospitalBasophils Auto (Bld) [#/Vol]Ordered By: Vinay Bunting on 34-11-3670Fydpjszhc (Bld) [#/Vol]0.0 10*3/uL0.0-0.2FJoint Township District Memorial HospitalBasophils/100 WBC Auto (Bld)Ordered By: Vinay Bunting on 58-06-2631Nlcjxdvgu/100 WBC (Bld)0.5 %.[facility] Bilirubin.total [Mass/volume] in Serum or PlasmaOrdered By: Vinay Bunting on 59-66-5646Sjkdypenp [Mass/Vol]0.5 mg/dL0.3-1.0[facility] Calcium [Mass/volume] in Serum or PlasmaOrdered By: Vinay Bunting on 09-05-2023 Calcium [Mass/Vol]9.1 mg/dL8.6-10.3FJoint Township District Memorial HospitalCarbon dioxide, total [Moles/volume] in Serum or PlasmaOrdered By: Vinay Bunting on 81-79-5666BA1 [Moles/Vol]29.2 mmol/L21.0-31.0[facility] Chloride [Moles/volume] in Serum or PlasmaOrdered By: Vinay Bunting on 71-78-6537Svuxhpok [Moles/Vol]103 mmol/W25-256MtrloaxdmMedina Hospital Cholesterol [Mass/volume] in Serum or PlasmaOrdered By: Vinay Bunting on 84-73-4747Ebfxptnlxlr [Mass/Vol]116 mg/cK072-875GniatvcqsMedina HospitalComment on above:Chol less than 200 mg/dl low riskChol 201-239 mg/dl borderline riskChol 240 mg/dl and greater high riskCholesterol in LDL Calc [Mass/Vol]Ordered By: Vinay Bunting on 89-07-8438Zztppszbglr in LDL [Mass/Vol] 55 mg/dL0-100[facility] HospitalComment on above:LDL ATP III CLASSIFICATIONLDL less than 100 mg/dL OptimalLDL 100-129 mg/dL Near or above eohhhozJQB982-165 mg/dL Borderline highLDL 160-189 mg/dL HighLDL greater than 189 mg/dL Very highCholesterol in VLDL Calc [Mass/Vol]Ordered By: Vinay Bunting on 51-80-5530Tnbrkrnwphl in VLDL [Mass/Vol]18 mg/dLMedina HospitalCreatinine [Mass/volume] in Serum or PlasmaOrdered By: Vinay Bunting on 82-37-4840Siywsvcwnf [Mass/Vol]1.67 mg/dL0.60-1.20[facility] HospitalEosinophils Auto (Bld) [#/Vol]Ordered By: Vinay Bunting on 09-05-2023 Eosinophils (Bld) [#/Vol]0.1 10*3/uL0.0-0.45[facility] Eosinophils/100 WBC Auto (Bld)Ordered By: Vinay Bunting on 09-05-2023 Eosinophils/100 WBC (Bld)2.7 %.[facility] HospitalErythrocyte distribution width Auto (RBC) [Ratio]Ordered By: Vinay Matta on 09-05-2023 Erythrocyte distribution width (RBC) [Ratio]17.2 %11.9-15.3FJoint Township District Memorial HospitalGlobulin Calc (S) [Mass/Vol]Ordered By: Vinay Matta on 53-24-5942Sitroqoi (S) [Mass/Vol]2.2 g/dLMedina Hospital Glucose [Mass/volume] in Serum or PlasmaOrdered By: Vinay Matta on 09-05-2023 Glucose [Mass/Vol]172 mg/wW38-950DjizlnqyhMedina HospitalComment on above:ADA recommended reference rangeRandom Glucose Reference Range is dependent on time and content of last meal. Glucose of more than 200 mg/dL in a nonstressed, ambulatory subject supports the diagnosisof Diabetes Mellitus. Glucose mean value [Mass/volume] in Blood Estimated from glycated hemoglobin Ordered By: Vinay Matta on 95-51-3490Erdieju glucose Estimated from glycated hemoglobin (Bld) [Mass/Vol]192 mg/dLMedina HospitalHematocrit Auto (Bld) [Volume fraction]Ordered By: Vinay Matta on 85-94-5332Vwcrhqfiar (Bld) [Volume fraction]31.6 %34.0-46.4FJoint Township District Memorial Hospital Hemoglobin A1c percentageOrdered By: Vinay Matta on 59-65-4838FeV2f (Bld) [Mass fraction]8.3 %4.3-5.6FJoint Township District Memorial HospitalComment on above: Increased risk for diabetes: 5.7 - 6.4diabetes: >6.4glycemic control for adults with diabetes: <7.0Hemoglobin [Mass/volume] in BloodOrdered By: Vinay Matta on 34-61-6128Gsrzyrqqlm (Bld) [Mass/Vol]11.0 g/dL11.8-15.4FJoint Township District Memorial HospitalLeukocytes [#/volume] corrected for nucleated erythrocytes in Blood by Automated counOrdered By: Vinay Matta on 09-05-2023 WBC corrected for nucl RBC Auto (Bld) [#/Vol]5.3 10*3/uL3.8-11.6FJoint Township District Memorial HospitalLymphocytes Auto (Bld) [#/Vol]Ordered By: Vinay Bunting on 29-82-3017Iuhbbcuvdnl (Bld) [#/Vol]1.5 10*3/uL1.00-4.8Medina HospitalLymphocytes/100 WBC Auto (Bld)Ordered By: Vinay Bunting on 62-29-1839Xvilxwfvter/100 WBC (Bld)28.2 %.[facility]H Auto (RBC) [Entitic mass]Ordered By: Vinay Bunting on 15-76-2461BYR (RBC) [Entitic mass]29.1 pg24.7-34.3FAshtabula County Medical CenterHC Auto (RBC) [Mass/Vol]Ordered By: Vinay Bunting on 27-27-0254APFA (RBC) [Mass/Vol]34.9 g/dL 32.0-35.0Med[facility] HospitalMCV Auto (RBC) [Entitic vol]Ordered By: Vinay Bunting on 43-12-3670XEX (RBC) [Entitic vol]83.3 eI41-522XstkfvkveMedina HospitalMonocytes Auto (Bld) [#/Vol]Ordered By: Vinay Bunting on 57-38-7647Rxokxqavt (Bld) [#/Vol]0.3 10*3/uL0.0-0.8[facility] HospitalMonocytes/100 WBC Auto (Bld)Ordered By: Vinay Bunting on 09-05-2023 Monocytes/100 WBC (Bld)5.0 %.[facility]ina HospitalNeutrophils Auto (Bld) [#/Vol]Ordered By: Vinay Bunting on 02-35-0447Uqamtdypbtr (Bld) [#/Vol] 3.4 10*3/uL1.8-7.7FJoint Township District Memorial HospitalNeutrophils/100 WBC Auto (Bld)Ordered By: Vinay Bunting on 95-31-5912Ywxhemhivvt/100 WBC (Bld)63.6 %. [facility] HospitalNo Panel InformationOrdered By: Vinay Bunting on 59-35-0258Risjmaqlv GFR (CKD-EPI)31.949 mL/MinMedina HospitalPharmacy Creatinine Clearance (ChemN/AFJoint Township District Memorial Hospital Nucleated erythrocytes [Presence] in Blood by Automated countOrdered By: Vinay Bunting on 20-31-9355Mdejqwijo RBC Auto Ql (Bld)0.0 /100{WBC}0-0.5FJoint Township District Memorial HospitalPlatelet mean volume Auto (Bld) [Entitic vol]Ordered By: Vinay Bunting on 44-78-9223Oovvhkho mean volume (Bld) [Entitic vol]7.3 fL 6.3-10.7FJoint Township District Memorial HospitalPlatelets Auto (Bld) [#/Vol]Ordered By: Vinay Bunting on 02-76-7460Twtceawmh (Bld) [#/Vol]150 10*3/wI552-078AayccxjeiMedina HospitalPotassium [Moles/volume] in Serum or PlasmaOrdered By: Vinay Bunting on 20-27-3242Sxsptaurp [Moles/Vol]4.0 mmol/L3.5-5.1FJoint Township District Memorial HospitalProtein [Mass/volume] in Serum or PlasmaOrdered By: Vinay Bunting on 49-54-6876Mcarnis [Mass/Vol]6.4 g/dL6.4-8.9Med[facility] HospitalRBC Auto (Bld) [#/Vol]Ordered By: Vinay Bunting on 80-27-1606TZH (Bld) [#/Vol]3.79 10*6/uL3.60-5.00[facility]mount Hospitalerum or plasma albumin/globulin mass ratioOrdered By: Vinay Bunting on 09-05-2023 Albumin/Globulin [Mass ratio]1.9 {ratio}[facility]mount Hospitalerum or plasma anion gap determinationOrdered By: Vinay Bunting on 30-04-5542Llgtp gap [Moles/Vol]13.8 mmol/L6.0-15.0[facility] Hospitalerum or plasma high density lipoprotein (HDL) cholesterol measurementOrdered By: Vinay Bunting on 30-71-5316Mdgnsmgrpul in HDL [Mass/Vol]42 mg/oI87-53QhpbvcsdgMedina HospitalComment on above:HDL CHOL ATP-III CLASSIFICATION Cardiovascular RiskHDL > or equal to 60 mg/dL LOWHDL < 40 mg/dL HIGHSerum or plasma total cholesterol/high density lipoprotein (HDL) cholesterol mass rat Ordered By: Vinay Matta on 52-58-7465Jjipocyqnnv.total/Cholesterol in HDL [Mass ratio]2.8 {ratio}<5.0Marymount Hospitalodium [Moles/volume] in Serum or PlasmaOrdered By: Vinay Bunting on 01-85-0674Xnfnlz [Moles/Vol]142 mmol/W972-180MkhqlzeepMedina HospitalTriglyceride [Mass/volume] in Serum or PlasmaOrdered By: [facility] Bunting on 09-05-2023 Triglyceride [Mass/Vol]93 mg/dL0-149Medina HospitalComment on above:TRIG ATP III CLASSIFICATIONTRIG less than 150 mg/dL NormalTRIG 150-199 mg/dL Borderline highTRIG 200-500 mg/dL High TRIG greater than 500 mg/dL Very highStandard traceable to the Center for Disease Conrtrol and Prevention (CDC) test method.Urate [Mass/volume] in Serum or PlasmaOrdered By: Vinay [facility]man[facility] on 21-58-6217Ukxcj [Mass/Vol]6.0 mg/dL2.3-6.6FJoint Township District Memorial HospitalUrea nitrogen [Mass/volume] in Serum or PlasmaOrdered By: Vinay Bunting on 78-83-9534Untf nitrogen [Mass/Vol]38 mg/dL7-25[facility] WBC Auto (Bld) [#/Vol]Ordered By: Vinay Escaleramanhattan eye, ear [facility] on 16-24-5618OHA (Bld) [#/Vol] 5.3 10*3/uL3.8-11.6FJoint Township District Memorial HospitalCBC AUTO DIFFon 03-27-2023 BASO #0.0 103/ulNormal0.0-0.1The [facility] HospitalComment on above:Performed By: #### CBC #### [facility] [address] [address] [address] Anamika Beansophils/100 WBC (Bld)0.3 %Normal0.2-2.0The [facility] Comment on above:Performed By: #### CBC #### [facility] [address] [address] [address] Anamika Barth #0.1 103/ulNormal0.0-0.7The [facility] HospitalComment on above: Performed By: #### CBC #### [facility] [address] [address] [address] Anamika Holdenosinophils/100 WBC (Bld)1.7 %Normal0.9-7.0The [facility] Comment on above:Performed By: #### CBC #### [facility] [address] [place] [address] Dr. Anamika Holdenrythrocyte distribution width (RBC) [Ratio]15.4 %Critically high 11.0-15.0The [facility] Ohioment on above:Performed By: #### CBC #### [facility] [address] [place] [address] Dr. Anamika VargheseHematocrit (Bld) [Volume fraction]32.2 %Critically low36.0-48.0 The [facility] HospitalComment on above:Performed By: #### CBC #### [facility] [address] [place] [address] Dr. Anamika VargheseHemoglobin (Bld) [Mass/Vol]10.9 g/dLCritically low12.0-16.0The [facility] HospitalComment on above:Performed By: #### CBC #### [facility] [address] [place] [address] Dr. Anamika Keane #0.02 10e3/ulNormal0.00-0.03The [facility] HospitalComment on above:Performed By: #### CBC #### [facility] [address] [place] [address] Dr. Anamika Keane %0.3 %Normal0.0-0.5The [facility] HospitalComment on above: Performed By: #### CBC #### [facility] [address] [place] [address] Dr. Anamika Portillo #1.5 103/ulNormal1.2-3.8The [facility] HospitalComment on above:Performed By: #### CBC #### [facility] [address] [place] [address] Dr. Anamika Cohnmphocytes/100 WBC (Bld)25.0 %Dgmybt10.5-60.0The [facility] HospitalComment on above:Performed By: #### CBC #### [facility] [address] [place] [address] Dr. Anamika MabryUAL DIFF REQNONormalThe [facility] HospitalComment on above: Performed By: #### CBC #### [facility] [address] [place] [address] Dr. Anamika Jean (RBC) [Entitic mass]29.0 maQbctny36.7-34.0The [facility] HospitalComment on above:Performed By: #### CBC #### [facility] [address] [place] [address] Dr. Anamika Jean (RBC) [Mass/Vol]33.9 g/tSEtpsiq76.9-35.2The [facility] HospitalComment on above:Performed By: #### CBC #### [facility] [address] [place] [address] Dr. Anamika Jean (RBC) [Entitic vol]85.6 eLSshxzn89.0-99.0The [facility] HospitalComment on above:Performed By: #### CBC #### [facility] [address] [place] [address] Dr. Anamika Gerber #0.3 103/ulNormal0.3-0.8The [facility] HospitalComment on above:Performed By: #### CBC #### [facility] [address] [place] [address] Dr. Anamika Beaulieuocytes/100 WBC (Bld)4.5 %Normal1.7-12.0The [facility] on above:Performed By: #### CBC #### [facility] [address] [place] [address] Dr. Anamika Rowe #4.1 103/ulNormal1.4-6.5The [facility] HospitalComment on above:Performed By: #### CBC #### [facility] [address] [address] [address] Anamika Bautistautrophils/100 WBC (Bld)68.2 %Sxabyh52.0-75.0The [facility] HospitalComment on above:Performed By: #### CBC #### [facility] [address] [place] [address] Dr. Anamika VarghesePlatelet mean volume (Bld) [Entitic vol]8.9 fLCritically low 9.5-13.5The [facility] HospitalComment on above:Performed By: #### CBC #### [facility] [address] [place] [address] Dr. Anamika VarghesePLT172 103/exFonmwn885-948Jxk [facility] HospitalComment on above: Performed By: #### CBC #### [facility] [address] [place] [address] Dr. Anamika VargheseRBC3.76 106/ulCritically low4.20-5.40The [facility] HospitalComment on above:Performed By: #### CBC #### [facility] [address] [place] [address] Dr. Anamika VargheseWBC6.0 103/ulNormal4.0-11.0The [facility] HospitalComment on above: Performed By: #### CBC #### [facility] [address] [place] [address] Dr. Anamika VarghesePROReinaldo 14(COMP METB)on 09-22-0416Moxawfw [Mass/Vol]3.5 g/dLNormal 3.4-5.0The [facility] HospitalComment on above:Performed By: #### FETIBC, FERR, B12FOL #### [facility] [address] [place] [address] Dr. Anamika VargheseAlbumin/Globulin [Mass ratio]1.0 {ratio}NormalThe [facility] on above:Performed By: #### FETIBC, FERR, B12FOL #### [facility] [address] [place] [address] Dr. Anamika Simon [Catalytic activity/Vol]109 U/IUkmiiy03-446Lzr [facility] HospitalComment on above:Performed By: #### FETIBC, FERR, B12FOL #### [facility] [address] [place] [address] Dr. Anamika Cook [Catalytic activity/Vol]34 U/LZvpini49-79Nxg [facility] HospitalComment on above:Performed By: #### FETIBC, FERR, B12FOL #### [facility] [address] [place] [address] Dr. Anamika Winn gap [Moles/Vol]13.8 mmol/LNormalThe [facility] Comment on above:Performed By: #### FETIBC, FERR, B12FOL #### [facility] [address] [place] [address] Dr. Anamika Barber [Catalytic activity/Vol]20 U/CWgnkdr38-11Wlb [facility] HospitalComment on above:Performed By: #### FETIBC, FERR, B12FOL #### [facility] [address] [place] [address] Dr. Anamika VargheseBilirubin [Mass/Vol]0.4 mg/dLNormal0.2-1.0The [facility] Comment on above:Performed By: #### FETIBC, FERR, B12FOL #### [facility] [address] [place] [address] Dr. Anamika VargheseCalcium [Mass/Vol]8.7 mg/dLNormal8.5-10.1[facility] Comment on above:Performed By: #### FETIBC, FERR, B12FOL #### [facility] [address] [place] [address] Dr. Anamika VargheseChloride [Moles/Vol]107 mmol/EUspobf39-848Gio [facility] Comment on above:Performed By: #### FETIBC, FERR, B12FOL #### [facility] [address] [place] [address] Dr. Anamika VargheseCO2 [Moles/Vol]28.2 mmol/DXagqys77.0-32.0The [facility] Comment on above:Performed By: #### FETIBC, FERR, B12FOL #### [facility] [address] [place] [address] Dr. Anamika VargheseCreatinine [Mass/Vol]1.27 mg/dLCritically high0.55-1.02The [facility] HospitalComment on above:Performed By: #### FETIBC, FERR, B12FOL #### [facility] [address] [place] [address] Dr. Willson ChangEGFR-AF FSIBMHGD29 mL/min/1.96k3Nzxzggsbnh low>=60The [facility] HospitalComment on above:Performed By: #### FETIBC, FERR, B12FOL #### [facility] [address] [place] [address] Dr. Willson ChangEGFR-NON AF NJCVSWWQ72 mL/min/1.10a7Qnoikboxqm low>=60The [facility] HospitalComment on above:Performed By: #### FETIBC, FERR, B12FOL #### [facility] [address] [place] [address] Dr. Anamika VargheseGlobulin (S) [Mass/Vol]3.6 g/dLNormalThe [facility] HospitalComment on above:Performed By: #### FETIBC, FERR, B12FOL #### [facility] [address] [place] [address] Dr. Anamika VargheseGlucose [Mass/Vol]116 mg/dLCritically akxv38-377Ouv [facility] Ohioment on above:Performed By: #### FETIBC, FERR, B12FOL #### [facility] [address] [place] [address] Dr. Anamika VarghesePotassium [Moles/Vol]4.0 mmol/LNormal3.5-5.1The [facility] Comment on above:Performed By: #### FETIBC, FERR, B12FOL #### [facility] [address] [place] [address] Dr. Anamika VargheseProtein [Mass/Vol]7.1 g/dLNormal6.4-8.2The [facility] Comment on above:Performed By: #### FETIBC, FERR, B12FOL #### [facility] [address] [address] [address] Anamika VargheseSodium [Moles/Vol]145 mmol/VPetmoh548-938Obc [facility] Comment on above:Performed By: #### FETIBC, FERR, B12FOL #### [facility] [address] [address] [address] Anamika Marrero nitrogen [Mass/Vol]24.0 mg/dLCritically high7.0-18.0[facility] HospitalComment on above:Performed By: #### FETIBC, FERR, B12FOL #### [facility] [address] [address] [address] Anamika Marrero nitrogen/Creatinine [Mass ratio]18.9 mg/mgNormalThe [facility] HospitalComment on above:Performed By: #### FETIBC, FERR, B12FOL #### [facility] [address] [place] [address] Dr. Anamika VargheseBasophils Auto (Bld) [#/Vol]Ordered By: Kimberly Arteaga on 45-39-5396Hgzetsgez (Bld) [#/Vol]0.0 10*3/uL0.0-0.2FJoint Township District Memorial HospitalBasophils/100 WBC Auto (Bld)Ordered By: Kimberly Arteaga on 03-13-2023 Basophils/100 WBC (Bld)0.4 %.[facility] HospitalCalcium [Mass/volume] in Serum or PlasmaOrdered By: Kimberly Arteaga on 13-29-2423Ecobnjy [Mass/Vol]8.5 mg/dL8.6-10.3FJoint Township District Memorial HospitalCarbon dioxide, total [Moles/volume] in Serum or PlasmaOrdered By: Kimberly Arteaga on 03-13-2023 CO2 [Moles/Vol]29.6 mmol/L21.0-31.0[facility] HospitalChloride [Moles/volume] in Serum or PlasmaOrdered By: Kimberly Arteaga on 70-35-5325Ezvuohpu [Moles/Vol]103 mmol/D68-889GxcsstbcxMedina HospitalCreatinine [Mass/volume] in Serum or PlasmaOrdered By: Kimberly Arteaga on 03-13-2023 Creatinine [Mass/Vol]1.35 mg/dL0.60-1.20[facility] Eosinophils Auto (Bld) [#/Vol]Ordered By: Kimberly Arteaga on 23-28-7946Tiiurauyqba (Bld) [#/Vol]0.1 10*3/uL0.0-0.45[facility] Eosinophils/100 WBC Auto (Bld)Ordered By: Kimberly Arteaga on 03-13-2023 Eosinophils/100 WBC (Bld)1.7 %.[facility] HospitalErythrocyte distribution width Auto (RBC) [Ratio]Ordered By: Kimberly Arteaga on 03-13-2023 Erythrocyte distribution width (RBC) [Ratio]16.8 %11.9-15.3FJoint Township District Memorial HospitalGlucose Glucometer (BldC) [Mass/Vol]Ordered By: Kimberly Arteaga on 40-09-5792Tokvrsv [Mass/Vol]162 mg/dLMedina HospitalComment on above:Random Glucose Reference Range is dependent on time and content of last meal. Glucose of more than 200 mg/dL in a nonstressed, ambulatory subject supports the diagnosis of Diabetes Mellitus.Glucose [Mass/volume] in Serum or PlasmaOrdered By: Kimberly Arteaga on 35-68-8976Kkzkjhm [Mass/Vol]130 mg/wA79-926 [facility] HospitalComment on above:ADA recommended reference rangeRandom Glucose Reference Range is dependent on time and content of last meal. Glucose of more than 200 mg/dL in a nonstressed, ambulatory subject supports the diagnosisof Diabetes Mellitus.Hematocrit Auto (Bld) [Volume fraction]Ordered By: Kimberly Arteaga on 16-90-7382Ilkgpzjene (Bld) [Volume fraction]32.5 %34.0-46.4FJoint Township District Memorial HospitalHemoglobin [Mass/volume] in BloodOrdered By: Kimberly Arteaga on 55-10-9294Ltrrwjcxbh (Bld) [Mass/Vol]10.9 g/dL11.8-15.4FJoint Township District Memorial HospitalLeukocytes [#/volume] corrected for nucleated erythrocytes in Blood by Automated coun Ordered By: Kimberly Arteaga on 56-53-0259LRQ corrected for nucl RBC Auto (Bld) [#/Vol]5.0 10*3/uL3.8-11.6FJoint Township District Memorial HospitalLymphocytes Auto (Bld) [#/Vol]Ordered By: Kimberly Arteaga on 52-87-9746Ruijsiczvtd (Bld) [#/Vol]1.4 10*3/uL1.00-4.8[facility] HospitalLymphocytes/100 WBC Auto (Bld) Ordered By: Kimberly Arteaga on 05-95-9726Uwutyypltpr/100 WBC (Bld)28.5 %.[facility]H Auto (RBC) [Entitic mass]Ordered By: Kimberly Arteaga on 28-83-2006RGE (RBC) [Entitic mass]28.6 pg24.7-34.3FJoint Township District Memorial HospitalMCHC Auto (RBC) [Mass/Vol]Ordered By: Kimberly Arteaga on 02-75-1877SJEJ (RBC) [Mass/Vol]33.5 g/dL32.0-35.0[facility] HospitalMCV Auto (RBC) [Entitic vol]Ordered By: Kimberly Arteaga on 92-61-2768JHE (RBC) [Entitic vol]85.3 rQ99-073FouhgchpfMedina HospitalMonocytes Auto (Bld) [#/Vol] Ordered By: Kimberly Arteaga on 64-23-3766Tlpqsmgcg (Bld) [#/Vol]0.3 10*3/uL0.0-0.8 [facility] HospitalMonocytes/100 WBC Auto (Bld)Ordered By: Kimberly Arteaga on 73-86-4844Iwlxirzuj/100 WBC (Bld)6.9 %.[facility] HospitalNeutrophils Auto (Bld) [#/Vol]Ordered By: Kimberly Arteaga on 03-13-2023 Neutrophils (Bld) [#/Vol]3.1 10*3/uL1.8-7.7FJoint Township District Memorial Hospital Neutrophils/100 WBC Auto (Bld)Ordered By: Kimberly Arteaga on 03-13-2023 Neutrophils/100 WBC (Bld)62.5 %.[facility] HospitalNo Panel InformationOrdered By: Kimberly Arteaga on 56-74-1571Vcfbnbiql GFR (CKD-EPI)41.239 mL/MinMedina HospitalPharmacy Creatinine Clearance (Chem39.70 [facility] HospitalNucleated erythrocytes [Presence] in Blood by Automated countOrdered By: Kimberly Arteaga on 09-33-1461Twioyyrjy RBC Auto Ql (Bld)0.1 /100{WBC}0-0.5FJoint Township District Memorial HospitalPlatelet mean volume Auto (Bld) [Entitic vol]Ordered By: Kimberly Arteaga on 83-99-5363Yoawkenq mean volume (Bld) [Entitic vol]7.2 fL6.3-10.7FJoint Township District Memorial Hospital Platelets Auto (Bld) [#/Vol]Ordered By: Kimberly Arteaga on 91-73-6377Hfvpimtcx (Bld) [#/Vol]152 10*3/dC324-135RitstsowhMedina HospitalPotassium [Moles/volume] in Serum or PlasmaOrdered By: Kimberly Arteaga on 03-13-2023 Potassium [Moles/Vol]3.8 mmol/L3.5-5.1FJoint Township District Memorial HospitalRBC Auto (Bld) [#/Vol]Ordered By: Kimberly Arteaga on 45-07-1229TNK (Bld) [#/Vol]3.81 10*6/uL3.60-5.00[facility]mount Hospitalerum or plasma anion gap determinationOrdered By: Kimberly Arteaga on 07-99-5227Kepwf gap [Moles/Vol]TNP [facility] HospitalComment on above:Test not performedSodium [Moles/volume] in Serum or PlasmaOrdered By: Kimberly Arteaga on 59-86-6668Nhbefi [Moles/Vol]141 mmol/S455-931NyrkqgxidMedina HospitalUrea nitrogen [Mass/volume] in Serum or PlasmaOrdered By: Kimberly Arteaga on 95-45-2077Dxmr nitrogen [Mass/Vol]28 mg/dL7-25Med[facility] HospitalWBC Auto (Bld) [#/Vol]Ordered By: Kimberly Arteaga on 49-04-5391PZE (Bld) [#/Vol]5.0 10*3/uL 3.8-11.6FJoint Township District Memorial HospitalCholesterol [Mass/volume] in Serum or PlasmaOrdered By: Kimberly Arteaga on 49-79-7581Wmqnpihypkx [Mass/Vol]118 mg/dL 140-200Med[facility] HospitalComment on above:Chol less than 200 mg/dl low riskChol 201-239 mg/dl borderline riskChol 240 mg/dl and greater high riskCholesterol in LDL Calc [Mass/Vol]Ordered By: Kimberly Arteaga on 03-12-2023 Cholesterol in LDL [Mass/Vol]51 mg/dL0-100[facility] Comment on above:LDL ATP III CLASSIFICATIONLDL less than 100 mg/dL OptimalLDL 100-129 mg/dL Near or above qzzomaxZXV950-836 mg/dL Borderline highLDL 160-189 mg/dL HighLDL greater than 189 mg/dL Very highCholesterol in VLDL Calc [Mass/Vol]Ordered By: Kimberly Arteaga on 92-14-2111Altolouggoq in VLDL [Mass/Vol] 32 mg/dLMarymount Hospitalerum or plasma high density lipoprotein (HDL) cholesterol measurementOrdered By: Kimberly Arteaga on 03-12-2023 Cholesterol in HDL [Mass/Vol]35 mg/dJ33-08NlsvprnwdMedina Hospital Comment on above:HDL CHOL ATP-III CLASSIFICATION Cardiovascular RiskHDL > or equal to 60 mg/dL LOWHDL < 40 mg/dL HIGHSerum or plasma total cholesterol/high density lipoprotein (HDL) cholesterol mass ratOrdered By: Kimberly Arteaga on 67-17-2445Rgqquyihcmm.total/Cholesterol in HDL [Mass ratio]3.4 {ratio}<5.0 [facility] HospitalTriglyceride [Mass/volume] in Serum or Plasma Ordered By: Kimberly Arteaga on 75-32-6956Ydbxjnxdxglt [Mass/Vol]160 mg/dL0-149 [facility] HospitalComment on above:TRIG ATP III CLASSIFICATIONTRIG less than 150 mg/dL NormalTRIG 150-199 mg/dL Borderline highTRIG 200-500 mg/dL High TRIG greater than 500 mg/dL Very highStandard traceable to the Center for Disease Conrtrol and Prevention (CDC) test method. Activated partial thromboplastin time (aPTT) in platelet poor plasma by coagulation aOrdered By: Anthony Rose on 07-49-1192rBFW Coag (PPP) [Time]33.9 s25.1-36.5FJoint Township District Memorial HospitalAutomated erythrocytes count in urine sediment (number/area)Ordered By: Anthony Rose on 20-20-0124QJJ Auto (Urine sed) [#/Area]0-1 [HPF]0-4FJoint Township District Memorial HospitalAutomated leukocytes count in urine sediment (number/area)Ordered By: Anthony Rose on 65-20-9128VYA Auto (Urine sed) [#/Area]10-19 [HPF]0-4FJoint Township District Memorial Hospital Bilirubin Test strip Ql (U)Ordered By: Anthony Rose on 76-31-4529Qqrtgrumc Ql (U)NegativeNegSelect Medical Specialty Hospital [facility] Southeast OhioColor Auto (U)Ordered By: Anthony Rose on 46-16-8637Wixer (U)YellowYellowMedina HospitalCreatine kinase [Enzymatic activity/volume] in Serum or PlasmaOrdered By: Anthony Rose on 15-61-3025LJ [Catalytic activity/Vol]64 U/U51-081PfcpwqrnhMedina HospitalCreatinine (Bld) [Mass/Vol]Ordered By: Anthony Rose on 39-67-3099Cfoiuutiqz [Mass/Vol]1.7 mg/dL0.6-1.3FJoint Township District Memorial Hospital Comment on above:ER/ESD physician is notified/shown all ISTAT results.Critical values may be confirmed by laboratorytesting ifdeemed necessary by ER attending doctor.Ketones Auto test strip (U) [Mass/Vol]Ordered By: Anthony Rose on 18-49-6916Neibczc (U) [Mass/Vol]NegativeNegativeMedina HospitalLaboratory - CoagulationOrdered By: Anthony Rose on 94-74-1567AE Coag (PPP) [Time]13.5 s9.0-12.9[facility] HospitalLaboratory - UrinalysisOrdered By: Anthony Rose on 49-91-4929Llrkyzb casts LM Ql (Urine sed)0-8 [LPF]0-8[facility] HospitalMonocyte distribution width [Entitic volume] in Blood by AutomatedOrdered By: Anthony Rose on 03-11-2023 Monocyte distribution width Auto (Bld) [Entitic vol]17.19 %0.00-20.00Medina HospitalNitrite Test strip Ql (U)Ordered By: Anthony Rose on 30-52-8800Ywxzccz Ql (U)NegativeNegativeMedina HospitalNo Panel InformationOrdered By: Anthony Rose on 95-53-6087Bedosui Glucose Comment Glu2: cleaned meterMedina HospitalPlatelet poor plasma international normalized ratio (INR) by coagulation assay (relatOrdered By: Anthony Rose on 53-78-4207DYT Coag (PPP) [Relative time]1.2 {INR}[facility]ina HospitalComment on above:INR Therapeutic Range A) Pre- [...] strip (U) [Mass/Vol]Ordered By: Anthony Rose on 16-49-6200Zxbonjl (U) [Mass/Vol]Negative NegativeMarymount Hospitalpecific gravity Auto test strip (U) [Rel density]Ordered By: Anthony Rose on 75-34-3393Gfpujgxq gravity (U) [Rel density]1.0201.001-1.030Marymount Hospitalquamous epithelial cells detection in urine sediment by light microscopyOrdered By: Anthony Rose on 17-33-4207Zfymbudllj cells.squamous LM Ql (Urine sed)5-9 [HPF]0-2FJoint Township District Memorial HospitalTroponin I.cardiac [Mass/volume] in Serum or Plasma by Detection limit <= 0.01 ng/Ordered By: Anthony Rose on 36-96-8976Niomkkid I.cardiac DL <= 0.01 ng/mL [Mass/Vol]3.7 pg/mL0.0-15.0Medina HospitalUrine bacteria detection by automated methodOrdered By: Anthony Rose on 10-51-2586Lplssyad Auto Ql (U)None seenNone SeenMedina HospitalUrine clarity by refractometry automatedOrdered By: Anthony Rose on 73-10-4204Icyctmv Refractometry automated (U)ClearClearFJoint Township District Memorial HospitalUrine culture routineOrdered By: Anthony Rose on 03-11-2023 Bacteria identified Cx Nom (U)Escherichia coliMedina Hospital Urine glucose measurement by automated test strip (mass/volume)Ordered By: Anthony Rose on 85-78-9959Xnatuxu Auto test strip (U) [Mass/Vol]Normal mg/dL NormalMedina HospitalUrine hemoglobin detection by automated test stripOrdered By: Anthony Rose on 93-16-1300Pskehhrqku Auto test strip Ql (U)NegativeNegativeMedina HospitalUrine leukocyte esterase detection by automated test stripOrdered By: Anthony Rose on 03-11-2023 Leukocyte esterase Auto test strip Ql (U)2+NegativeMedina HospitalUrobilinogen Auto test strip (U) [Mass/Vol]Ordered By: Anthony Rose on 45-61-8211Prafotovmess (U) [Mass/Vol]Normal mg/dLNormalMedina HospitalpH Auto test strip (U)Ordered By: Anthony Rose on 01-38-4333tJ (U)5.0 [pH]5.0-9.0Medina HospitalMAGNESIUMon 02-23-2023 Magnesium [Mass/Vol]1.3 mg/dLCritically low1.8-2.4The [facility] HospitalComment on above:Performed By: #### MG #### [facility] [address] [place] [address] Dr. Anamika VargheseAlbumin [Mass/volume] in Serum or PlasmaOrdered By: Vinay Matta on 90-67-2796Hbxntrd [Mass/Vol]3.6 g/dL3.2-5.5FJoint Township District Memorial HospitalAlkaline phosphatase [Enzymatic activity/volume] in Serum or Plasma Ordered By: Vinay Bunting on 23-90-9870RGS [Catalytic activity/Vol]100 U/L32-92 Medina HospitalAspartate aminotransferase [Enzymatic activity/volume] in Serum or PlasmaOrdered By: Vinay Bunting on 53-97-2904FTZ [Catalytic activity/Vol]31 U/K60-25IttajqaswMedina HospitalBasophils Auto (Bld) [#/Vol]Ordered By: Vinay Bunting on 01-44-4322Zlxadtlwd (Bld) [#/Vol]0.0 10*3/uL0.0-0.2FJoint Township District Memorial HospitalBasophils/100 WBC Auto (Bld)Ordered By: Vinay Bunting on 32-72-4875Fuvxxbwuo/100 WBC (Bld)0.2 %. Medina HospitalBilirubin.total [Mass/volume] in Serum or PlasmaOrdered By: Vinay Bunting on 90-32-9023Icaajorlr [Mass/Vol]0.5 mg/dL 0.3-1.2FJoint Township District Memorial HospitalCalcium [Mass/volume] in Serum or Plasma Ordered By: Vinay Bunting on 57-98-7243Ntkwuie [Mass/Vol]8.2 mg/dL8.2-10.2 [facility] HospitalCarbon dioxide, total [Moles/volume] in Serum or PlasmaOrdered By: Vinay Bunting on 46-21-9428GI1 [Moles/Vol]28.0 mmol/L 22.0-30.0Medina HospitalChloride [Moles/volume] in Serum or PlasmaOrdered By: Vinay Bunting on 76-84-4439Zteaqctj [Moles/Vol]101 mmol/L 95-114[facility] HospitalCholesterol [Mass/volume] in Serum or PlasmaOrdered By: Vinay Bunting on 33-44-9267Oqmgbmqshzb [Mass/Vol]130 mg/dL 140-200Medina HospitalComment on above:Chol less than 200 mg/dl low riskChol 201-239 mg/dl borderline riskChol 240 mg/dl and greater high riskCholesterol in LDL Calc [Mass/Vol]Ordered By: Vinay Bunting on 01-16-2023 Cholesterol in LDL [Mass/Vol]74 mg/dL0-100[facility] Comment on above:LDL ATP III CLASSIFICATIONLDL less than 100 mg/dL OptimalLDL 100-129 mg/dL Near or above xosjwqcHEI297-299 mg/dL Borderline highLDL 160-189 mg/dL HighLDL greater than 189 mg/dL Very highCholesterol in VLDL Calc [Mass/Vol]Ordered By: Vinay Bunting on 27-70-2799Crttjhefbzo in VLDL [Mass/Vol] 21 mg/dLMedina HospitalCreatinine and Glomerular filtration rate.predicted panel (S/P/Bld)Ordered By: Vinay Bunting on 37-07-6420Tgztsioxrz [Mass/Vol]1.51 mg/dL0.44-1.03Medina HospitalEosinophils Auto (Bld) [#/Vol]Ordered By: Vinay Bunting on 32-68-1629Dipkhhzpjoi (Bld) [#/Vol] 0.1 10*3/uL0.0-0.45Medina HospitalEosinophils/100 WBC Auto (Bld)Ordered By: Vinay Bunting on 21-18-8996Nqnlinillxm/100 WBC (Bld)2.2 %. [facility]ina HospitalErythrocyte distribution width Auto (RBC) [Ratio]Ordered By: Vinay Bunting on 94-27-5965Hbmsvjgtqun distribution width (RBC) [Ratio]17.4 %11.9-15.3FJoint Township District Memorial HospitalEstimated glomerular filtration rate (GFR) non- AmericanOrdered By: Vinay Bunhomer on 52-17-1601RIY/1.73 sq M.predicted among non-blacks MDRD (S/P/Bld) [Vol rate/Area]34 mL/MinMedina HospitalGlobulin Calc (S) [Mass/Vol] Ordered By: Vinay Bunting on 90-34-8061Tjcfheec (S) [Mass/Vol]2.3 g/dLMedina HospitalGlucose [Mass/volume] in Serum or PlasmaOrdered By: Vinay Bunting on 06-85-9111Ereliyk [Mass/Vol]162 mg/gC11-962VylmvajufMedina HospitalComment on above:ADA recommended reference rangeRandom Glucose Reference Range is dependent on time and content of last meal. Glucose of more than 200 mg/dL in a nonstressed, ambulatory subject supports the diagnosisof Diabetes Mellitus.Glucose mean value [Mass/volume] in Blood Estimated from glycated hemoglobinOrdered By: Vinay Matta on 45-02-4027Srkfogj glucose Estimated from glycated hemoglobin (Bld) [Mass/Vol]171 mg/dLMedina HospitalHematocrit Auto (Bld) [Volume fraction]Ordered By: Vinay Matta on 17-76-9228Cluylyxcpr (Bld) [Volume fraction]31.4 %34.0-46.4FJoint Township District Memorial HospitalHemoglobin A1c percentageOrdered By: Vinay Matta on 01-16-2023 HbA1c (Bld) [Mass fraction]7.6 %4.3-5.6FJoint Township District Memorial HospitalComment on above:Increased risk for diabetes: 5.7 - 6.4diabetes: >6.4glycemic control for adults with diabetes: <7.0Hemoglobin [Mass/volume] in BloodOrdered By: Vinay Matta on 62-40-8693Fnmcflrtru (Bld) [Mass/Vol]10.6 g/dL11.8-15.4 [facility] HospitalLeukocytes [#/volume] corrected for nucleated erythrocytes in Blood by Automated counOrdered By: Vinay Matta on 01-16-2023 WBC corrected for nucl RBC Auto (Bld) [#/Vol]5.7 10*3/uL3.8-11.6FJoint Township District Memorial HospitalLymphocytes Auto (Bld) [#/Vol]Ordered By: Vinay Matta on 49-30-0159Dkjpxauezkn (Bld) [#/Vol]1.3 10*3/uL1.00-4.8Medina HospitalLymphocytes/100 WBC Auto (Bld)Ordered By: Vinay Matta on 04-70-8575Ilyjxlhvadh/100 WBC (Bld)22.6 %.[facility] Auto (RBC) [Entitic mass]Ordered By: Vinay Matta on 78-57-8539VVQ (RBC) [Entitic mass]28.7 pg24.7-34.3FJoint Township District Memorial HospitalMCHC Auto (RBC) [Mass/Vol]Ordered By: Vinay Matta on 36-90-4151KFIK (RBC) [Mass/Vol]33.7 g/dL 32.0-35.0Medina HospitalMCV Auto (RBC) [Entitic vol]Ordered By: Vinay Bunting on 31-27-0254XVP (RBC) [Entitic vol]85.1 eD40-807OjrvafngnMedina HospitalMonocytes Auto (Bld) [#/Vol]Ordered By: Vinay Bunting on 79-51-7991Tnumuktmo (Bld) [#/Vol]0.3 10*3/uL0.0-0.8Medina HospitalMonocytes/100 WBC Auto (Bld)Ordered By: Vinay Bunting on 01-16-2023 Monocytes/100 WBC (Bld)4.5 %.Medina HospitalNeutrophils Auto (Bld) [#/Vol]Ordered By: Vinay Bunting on 62-65-4258Hziocnslqdc (Bld) [#/Vol] 4.0 10*3/uL1.8-7.7FJoint Township District Memorial HospitalNeutrophils/100 WBC Auto (Bld)Ordered By: Vinay Bunting on 41-59-7920Ggqecztfuav/100 WBC (Bld)70.5 %. [facility] HospitalNo Panel InformationOrdered By: Vinay Matta on 65-59-5254Jfgaxvkgi GFR ()41 mL/MinMedina HospitalComment on above:GFR estimated reference range: According to KDOQI guidelines, <60 ml/min/1.73m2 is sufficient todiagnose a patient with chronic kidney disease.Pharmacy Creatinine Clearance (ChemN/[facility] HospitalNucleated erythrocytes [Presence] in Blood by Automated countOrdered By: Vinay Matta on 78-16-2457Eegaxmnny RBC Auto Ql (Bld)0.1 /100{WBC}0-0.5 Medina HospitalPlatelet mean volume Auto (Bld) [Entitic vol] Ordered By: Vinay Matta on 60-17-4765Fypdmjgd mean volume (Bld) [Entitic vol] 7.4 fL6.3-10.7FJoint Township District Memorial HospitalPlatelets Auto (Bld) [#/Vol] Ordered By: Vinay Bunting on 29-82-6617Prmnezkbw (Bld) [#/Vol]152 10*3/uL 150-450Medina HospitalPotassium [Moles/volume] in Serum or PlasmaOrdered By: Vinay Bunting on 06-11-1423Erwxaufii [Moles/Vol]4.0 mmol/L 3.5-5.1FJoint Township District Memorial HospitalProtein [Mass/volume] in Serum or Plasma Ordered By: Vinay Bunting on 37-64-0074Fpulqtp [Mass/Vol]5.9 g/dL6.1-7.9 [facility] HospitalRBC Auto (Bld) [#/Vol]Ordered By: Vinay Bunting on 03-08-2983UGR (Bld) [#/Vol]3.69 10*6/uL3.60-5.00Marymount Hospitalerum or plasma alanine aminotransferase measurement without P-5'-P (enzymatic activiOrdered By: Vinay Bunting on 71-58-2119SYN No additional P-5'-P [Catalytic activity/Vol]26 U/V48-27FusfksrihMarymount Hospitalerum or plasma albumin/globulin mass ratioOrdered By: Vinay Bunting on 00-35-9660Ortjlwn/Globulin [Mass ratio]1.6 {ratio}Marymount Hospitalerum or plasma anion gap determinationOrdered By: Vinay Bunting on 54-61-0569Tjmyj gap [Moles/Vol]16.0 mmol/L6.0-15.0Marymount Hospitalerum or plasma high density lipoprotein (HDL) cholesterol measurement Ordered By: Vinay Bunting on 57-29-9077Uorwdnyufzq in HDL [Mass/Vol]34 mg/dL 35-85Medina HospitalComment on above:HDL CHOL ATP-III CLASSIFICATION Cardiovascular RiskHDL > or equal to 60 mg/dL LOWHDL < 40 mg/dL HIGHSerum or plasma total cholesterol/high density lipoprotein (HDL) cholesterol mass ratOrdered By: Vinay Bunting on 64-73-0732Vcifyyblqlu.total/Cholesterol in HDL [Mass ratio]3.8 {ratio}<5.0Marymount Hospitalodium [Moles/volume] in Serum or PlasmaOrdered By: Vinay Matta on 87-66-4010Zaorrl [Moles/Vol]141 mmol/V090-882IindrieoxMedina HospitalTriglyceride [Mass/volume] in Serum or PlasmaOrdered By: Vinay Matta on 01-16-2023 Triglyceride [Mass/Vol]109 mg/rP08-794ZejzurraxMedina HospitalComment on above:TRIG ATP III CLASSIFICATIONTRIG less than 150 mg/dL NormalTRIG 150-199 mg/dL Borderline highTRIG 200-500 mg/dL High TRIG greater than 500 mg/dL Very highStandard traceable to the Center for Disease Conrtrol and Prevention (CDC) test method.Urate [Mass/volume] in Serum or PlasmaOrdered By: Vinay Matta on 94-02-1750Wkyzw [Mass/Vol]5.7 mg/dL2.6-7.2FJoint Township District Memorial HospitalUrea nitrogen [Mass/volume] in Serum or PlasmaOrdered By: Vinay Matta on 02-64-8016Dqmx nitrogen [Mass/Vol]42 mg/dL9-23[facility] WBC Auto (Bld) [#/Vol]Ordered By: Vinay Matta on 52-55-6747OBR (Bld) [#/Vol] 5.7 10*3/uL3.8-11.6FJoint Township District Memorial HospitalGlucose Glucometer (BldC) [Mass/Vol]Ordered By: Rafael Edouard on 51-26-5151Cmvwpdb [Mass/Vol]165 mg/dL [facility] HospitalComment on above:Random Glucose Reference Range is dependent on time and content of last meal. Glucose of more than 200 mg/dL in a nonstressed, ambulatory subject supports the diagnosis of Diabetes Mellitus.CBC W Auto Differential panel (Bld)on 14-97-8357Qhfhvlifp (Bld) [#/Vol] <0.11 k/uLSalem Regional Medical CenterBasophils/100 WBC (Bld)0.4 %[facility] Differential cell count method Nom (Bld)AutoCleveland ClinicEosinophils (Bld) [#/Vol]0.12 10*3/uL<0.46 k/uLCleProMedica Flower HospitalEosinophils/100 WBC (Bld)2.2 % [facility] CenterErythrocyte distribution width (RBC) [Ratio]16.9 %High11.5 - 15.0 %[facility] CenterHematocrit (Bld) [Volume fraction]27.7 %Low36.0 - 46.0 % [facility] CenterHemoglobin (Bld) [Mass/Vol]8.5 g/dLLow11.5 - 15.5 g/dLSalem Regional Medical CenterImmature granulocytes (Bld) [#/Vol]<0.10 k/uLSalem Regional Medical CenterImmature granulocytes/100 WBC (Bld)0.2 %[facility] CenterLymphocytes (Bld) [#/Vol]1.07 10*3/uL1.00 - 4.00 k/uLSalem Regional Medical CenterLymphocytes/100 WBC (Bld)19.6 %[facility] BeachwoodH (RBC) [Entitic mass]25.3 pgLow26.0 - 34.0 pgClevelSleepy Eye Medical CenterHC (RBC) [Mass/Vol]30.7 g/dL30.5 - 36.0 g/dLSelect Medical Cleveland Clinic Rehabilitation Hospital, BeachwoodV (RBC) [Entitic vol]82.4 fL80.0 - 100.0 fLCleveland ClinicMonocytes (Bld) [#/Vol]0.25 10*3/uL<0.87 k/uL LariosProMedica Flower HospitalMonocytes/100 WBC (Bld)4.6 %[facility] CenterNeutrophils (Bld) [#/Vol]3.99 10*3/uL1.45 - 7.50 k/uLSalem Regional Medical CenterNeutrophils/100 WBC (Bld)73.0 %[facility] CenterNucleated RBC (Bld) [#/Vol]<0.01 k/uLSalem Regional Medical CenterNucleated RBC/100 WBC (Bld) [Ratio]0.0 /100 WBCSalem Regional Medical CenterPlatelet mean volume (Bld) [Entitic vol]9.4 fL9.0 - 12.7 fLCleveland ClinicPlatelets (Bld) [#/Vol]170 10*3/uL150 - 400 k/uLCleveland ClinicRBC (Bld) [#/Vol]3.36 10*6/uLLow3.90 - 5.20 m/[facility] HospitalWBC (Bld) [#/Vol]5.46 10*3/uL3.70 - 11.00 k/[facility] HospitalComprehensive metabolic 2000 panelon 79-33-1574Pcgwbkf [Mass/Vol]4.3 g/dL 3.9 - 4.9 g/dLEmmalena ClinicALP [Catalytic activity/Vol]120 U/L34 - 123 U/L [facility]ena ClinicALT [Catalytic activity/Vol]20 U/L7 - 38 U/LCleveland [facility] Anion gap [Moles/Vol]12 mmol/L9 - 18 mmol/LCleveland ClinicAST [Catalytic activity/Vol]28 U/L13 - 35 U/LCleveland [facility]watonna HospitalBilirubin [Mass/Vol]0.2 mg/dL0.2 - 1.3 mg/dLEmmalena ClinicCalcium [Mass/Vol]8.8 mg/dL8.5 - 10.2 mg/dLSalem Regional Medical CenterChloride [Moles/Vol]109 mmol/LHigh97 - 105 mmol/LCleveland ClinicCO2 [Moles/Vol]27 mmol/L22 - 30 mmol/LCleveland ClinicCreatinine [Mass/Vol]1.34 mg/dLHigh0.58 - 0.96 mg/dLSalem Regional Medical CenterEstimated Glomerular Filtration Rate42 mL/min/1.73mLow>=60 mL/min/1.73mCleveland Owatonna HospitalGlucose [Mass/Vol]191 mg/dLHigh 74 - 99 mg/dLSalem Regional Medical CenterPotassium [Moles/Vol]3.7 mmol/L3.7 - 5.1 mmol/L [facility]alena ClinicProtein [Mass/Vol]6.8 g/dL6.3 - 8.0 g/dLEmmalena ClinicSodium [Moles/Vol]148 mmol/WAzdl632 - 144 mmol/LCleveland [facility]watonna HospitalUrea nitrogen [Mass/Vol]35 mg/dLHigh7 - 21 mg/dLSalem Regional Medical CenterLD LACTATE DEHYDROon 47-29-1801DQG [Catalytic activity/Vol]163 U/L135 - 214 U/LCleveland ClinicRETIC COUNTon 30-69-7588Ozvjzdwwssack (Bld) [#/Vol]0.83979 10*3/uL0.018 - 0.100 M/uL Emmalena ClinicReticulocytes (Bld) [#/Vol]on 66-71-2142Fcfhljizasmeu/100 RBC (Bld)2.8 %High0.4 - 2.0 %[facility] CenterHEMATOLOGYOrdered By: SYSTEM SYSTEM on 96-26-0014Xlecfjuez/100 WBC (Bld)0.3 %Normal0.0 - 2.0 %[facility] HemeAutoSS Basophils/Leukocytes Auto (Bld) [Pure # fraction]0.0 E9/LNormal0.0 - 0.2 E9/L [facility] HemeAutoSSEosinophils/100 WBC (Bld)2.3 %Normal0.0 - 8.0 %[facility] HemeAutoSS Eosinophils/Leukocytes Auto (Bld) [Pure # fraction]0.1 E9/LNormal0.0 - 0.5 E9/L [facility] HemeAutoSSLymphocytes/100 WBC (Bld)21.9 %Oikbsq48.0 - 50.0 %[facility] HemeAutoSS Lymphocytes/Leukocytes Auto (Bld) [Pure # fraction]1.3 E9/LNormal1.0 - 4.0 E9/L [facility] HemeAutoSSMonocytes/100 WBC (Bld)5.0 %Normal4.0 - 14.0 %[facility] HemeAutoSS Monocytes/Leukocytes Auto (Bld) [Pure # fraction]0.3 E9/LNormal0.2 - 1.0 E9/L [facility] HemeAutoSSNeutrophils/100 WBC (Bld)70.5 %Wilhoh62.0 - 75.0 %[facility] HemeAutoSS Neutrophils/Leukocytes Auto (Bld) [Pure # fraction]4.3 E9/LNormal2.0 - 7.5 E9/L [facility] HemeAutoSSHEMATOLOGYOrdered By: Tammy Green on 04-99-6135Uohpwkrahkx distribution width (RBC) [Ratio]18.3 %High10.9 - 14.2 %[facility] HemeAutoSSHematocrit (Bld) [Volume fraction]27.6 %Low34.0 - 46.0 %[facility] HemeAutoSSHemoglobin (Bld) [Mass/Vol]9.1 g/dLLow12.0 - 16.0 gm/dLFTMC HemeAutoSSMCH (RBC) [Entitic mass] 25.6 pgLow27.0 - 34.0 pgFTMC HemeAutoSSMCHC (RBC) [Mass/Vol]33.1 g/mGCrbtwk71.4 - 36.0 gm/dLFTMC HemeAutoSSMCV (RBC) [Entitic vol]77.5 fLLow80.0 - 100.0 fLFTMC HemeAutoSSPlatelet mean volume (Bld) [Entitic vol]7.2 fLNormal6.4 - 10.8 fLFTMC HemeAutoSSPlatelets (Bld) [#/Vol]189.0 E9/YHoaapi941.0 - 500.0 E9/LFLAWT[facility] [place] HemeAutoSSRBC (Bld) [#/Vol]3.6 E12/LLow4.3 - 5.9 E12/LFLAWTON [facility]DI[facility] [place] HemeAutoSSWBC corrected for nucl RBC Auto (Bld) [#/Vol]6.1 E9/LNormal4.0 - 11.0 E9/LFLAWTON [facility]DI[facility] [place] HemeAutoSSBNPon 56-73-5155Qbhxrxzqxro peptide B (Bld) [Mass/Vol]146.0 pg/mL Normal<=900.0The [facility] HospitalComment on above:Performed By: #### BNP #### [facility] [address] [place] [address] Dr. Anamika Brown AUTO DIFFon 49-72-8137FLND #0.0 103/ulNormal0.0-0.1The [facility] HospitalComment on above:Performed By: #### CBC #### [facility] [address] [place] [address] Dr. Anamika Peñaphils/100 WBC (Bld)0.4 %Normal0.2-2.0The [facility] Comment on above:Performed By: #### CBC #### [facility] [address] [place] [address] Dr. Anamika Barth #0.2 103/ulNormal0.0-0.7The [facility] HospitalComment on above: Performed By: #### CBC #### [facility] [address] [address] [address] Anamika Holdenosinophils/100 WBC (Bld)3.6 %Normal0.9-7.0The [facility] Comment on above:Performed By: #### CBC #### [facility] [address] [place] [address] Dr. Anamika Holdenrythrocyte distribution width (RBC) [Ratio]16.4 %Critically high 11.0-15.0The [facility] HospitalComment on above:Performed By: #### CBC #### [facility] [address] [place] [address] Dr. Anamika VargheseHematocrit (Bld) [Volume fraction]28.9 %Critically low36.0-48.0 The [facility] HospitalComment on above:Performed By: #### CBC #### [facility] [address] [place] [address] Dr. Anamika VargheseHemoglobin (Bld) [Mass/Vol]9.0 g/dLCritically low12.0-16.0The [facility] HospitalComment on above:Performed By: #### CBC #### [facility] [address] [place] [address] Dr. Anamika Keane #0.02 10e3/ulNormal0.00-0.03The [facility] HospitalComment on above:Performed By: #### CBC #### [facility] [address] [place] [address] Dr. Anamika Keane %0.3 %Normal0.0-0.5The [facility] HospitalComment on above: Performed By: #### CBC #### [facility] [address] [place] [address] Dr. Anamika Portillo #1.8 103/ulNormal1.2-3.8The [facility] HospitalComment on above:Performed By: #### CBC #### [facility] [address] [place] [address] Dr. Anamika Cohnmphocytes/100 WBC (Bld)26.1 %Ezzylk94.5-60.0The [facility] HospitalComment on above:Performed By: #### CBC #### [facility] [address] [address] [address] Anamika Fuentes DIFF REQNONormalThe [facility] HospitalComment on above: Performed By: #### CBC #### [facility] [address] [address] [address] Anamika Jean (RBC) [Entitic mass]25.8 pgCritically low26.7-34.0The [facility] HospitalComment on above:Performed By: #### CBC #### [facility] [address] [place] [address] Dr. Anamika Jean (RBC) [Mass/Vol]31.1 g/rHMkfwyg02.9-35.2The [facility] HospitalComment on above:Performed By: #### CBC #### [facility] [address] [place] [address] Dr. Anamika Jean (RBC) [Entitic vol]82.8 eXJrrwoc93.0-99.0The [facility] HospitalComment on above:Performed By: #### CBC #### [facility] [address] [place] [address] Dr. Anamika Gerber #0.3 103/ulNormal0.3-0.8The [facility] HospitalComment on above:Performed By: #### CBC #### [facility] [address] [place] [address] Dr. Anamika Beaulieuocytes/100 WBC (Bld)5.0 %Normal1.7-12.0The [facility] Comment on above:Performed By: #### CBC #### [facility] [address] [address] [address] Anamika Rowe #4.4 103/ulNormal1.4-6.5The [facility] HospitalComment on above:Performed By: #### CBC #### [facility] [address] [place] [address] Dr. Anamika Bautistautrophils/100 WBC (Bld)64.6 %Nmzrph51.0-75.0The [facility] on above:Performed By: #### CBC #### [facility] [address] [address] [address] Anamika Millslet mean volume (Bld) [Entitic vol]8.7 fLCritically low 9.5-13.5The [facility] on above:Performed By: #### CBC #### [facility] [address] [address] [address] Anamika VarghesePLT188 103/dsLoqtfx856-138Dzp [facility] on above: Performed By: #### CBC #### [facility] [address] [place] [address] Dr. Anamika VargheseRBC3.49 106/ulCritically low4.20-5.40The [facility] on above:Performed By: #### CBC #### [facility] [address] [place] [address] Dr. Anamika VargheseWBC6.7 103/ulNormal4.0-11.0The [facility] on above: Performed By: #### CBC #### [facility] [address] [place] [address] Dr. Anamika VargheseGLYCOHEMOGLOBIN A1Con 04-82-8839SVQ RECOMMENDATIONSEE BELOWNormal [facility] on above:Result Comment: ADA RECOMMENDED LIMIT 4.0 - 6.0 ADA THERAPEUTIC TARGET < 7.0 ACTION SUGGESTED > 7.0Performed By: #### FETIBC FERR, B12FOL #### [facility] [address] [place] [address] Dr. Anamika VargheseGlucose [Mass/Vol]166 mg/dLNormalThe [facility] on above:Performed By: #### FETIBC, FERR, B12FOL #### [facility] [address] [place] [address] Dr. Anamika VargheseHbA1c (Bld) [Mass fraction]7.4 %Critically high4.5-6.2The [facility] on above:Performed By: #### FETIBC, FERR, B12FOL #### [facility] [address] [address] [address] Anamika RossID PROFILEon 40-05-4588AEES-HDL RATIO NORMSFayette County Memorial HospitalComment on above:Result Comment: 3.3 - 4.4 LOW RISK 4.4 - 7.1 AVERAGE RISK 7.1 - 11.0 MODERATE RISK >11.0 HIGH RISKPerformed By: #### LIPID, CMP #### [facility] [address] [address] [address] Anamika VargheseCholesterol [Mass/Vol]118 mg/dLNormal<=200The [facility] Comment on above:Performed By: #### LIPID, CMP #### [facility] [address] [address] [address] Anamika VargheseCholesterol in HDL [Mass/Vol]41 mg/kJMxwhan02-30QloOhiohealth Mansfield HospitalComment on above:Performed By: #### LIPID, CMP #### [facility] [address] [place] [address] Dr. Anamika VargheseCholesterol in LDL [Mass/Vol]60.4 mg/dLLouis Stokes Cleveland VA Medical CenterComment on above:Performed By: #### LIPID, CMP #### [facility] [address] [place] [address] Dr. Anamika Dejesusestertomi.total/Cholesterol in HDL [Mass ratio]2.9 {ratio} NormalOhiohealth Mansfield HospitalComment on above:Performed By: #### LIPID, CMP #### [facility] [address] [place] [address] Dr. Anamika MontanoL NORMAL> or = 60 mg/dl - LOW CARDIOVASCULAR RISK <40 mg/dl - HIGH CARDIOVASCULAR RISKLouis Stokes Cleveland VA Medical CenterComment on above:Performed By: #### LIPID, CMP #### [facility] [address] [place] [address] Dr. Anamika VargheseLDL CALC NORMALSEE [facility] HospitalComment on above:Result Comment: <100 mg/dl OPTIMAL 100 - 129 mg/dl NEAR OR ABOVE OPTIMAL 130 - 159 mg/dl BORDERLINE HIGH 160 - 189 mg/dl HIGH >190 mg/dl VERY HIGH Performed By: #### LIPID, CMP #### [facility] [address] [place] [address] Dr. Anamika VargheseTriglyceride [Mass/Vol]83 mg/dLNormal<=150[facility] Comment on above:Performed By: #### LIPID, CMP #### [facility] [address] [place] [address] Dr. Anamika GamboaLDL CALC16.6 mg/dLNoKindred HealthcareComment on above: Performed By: #### LIPID, CMP #### [facility] [address] [place] [address] Dr. Anamika HammROALGm CREAT RATIO RANDOMon 28-16-8603yWLH<1.3Normal<=30.0The [facility] HospitalComment on above:Performed By: #### FETIBC, FERR, B12FOL #### [facility] [address] [place] [address] Dr. Anamika Maki CR RATIO22.0 mg/gNormal0.0-29.9The [facility] HospitalComment on above:Performed By: #### FETIBC, FERR, B12FOL #### [facility] [address] [place] [address] Dr. Anamika Maki CR RATIO RANGESEE BELOWNoKindred HealthcareComment on above:Result Comment: NO MICROALBUMINURIA 0-29 MG/G CLINICAL MICROALBUMINURIA 30-300 MG/G MACROALBUMINURIA >300 MG/GPerformed By: #### FETIBC, FERR, B12FOL #### [facility] [address] [place] [address] Dr. Anamika Montiel CREAT59.04 mg/fPSltxii61.00-300.00[facility] Comment on above:Performed By: #### FETIBC, FERR, B12FOL #### [facility] [address] [place] [address] Dr. Anamika VarghesePROReinaldo 14(COMP METB)on [id number] [Mass/Vol]3.6 g/dLNormal 3.4-5.0The [facility] HospitalComment on above:Performed By: #### LIPID, CMP #### [facility] [address] [place] [address] Dr. Anamika VargheseAlbumin/Globulin [Mass ratio]1.0 {ratio}NormalThe [facility]sburg HospitalComment on above:Performed By: #### LIPID, CMP #### [facility] [address] [address] [address] Anamika McqueenP [Catalytic activity/Vol]128 U/LCritically cffh98-625Hgv [facility] HospitalComment on above:Performed By: #### LIPID, CMP #### [facility] [address] [place] [address] Dr. Anamika Cook [Catalytic activity/Vol]30 U/HUqmzjs13-73Uwn [facility] HospitalComment on above:Performed By: #### LIPID, CMP #### [facility] [address] [place] [address] Dr. Anamika Winn gap [Moles/Vol]14.9 mmol/LNormalThe [facility] Comment on above:Performed By: #### LIPID, CMP #### [facility] [address] [place] [address] Dr. Anamika Barber [Catalytic activity/Vol]23 U/SIdycor23-75Bwg [facility] HospitalComment on above:Performed By: #### LIPID, CMP #### [facility] [address] [place] [address] Dr. Anamika VargheseBilirubin [Mass/Vol]0.3 mg/dLNormal0.2-1.0The [facility] Comment on above:Performed By: #### LIPID, CMP #### [facility] [address] [place] [address] Dr. Anamika VargheseCalcium [Mass/Vol]8.6 mg/dLNormal8.5-10.1The [facility] Comment on above:Performed By: #### LIPID, CMP #### [facility] [address] [place] [address] Dr. Anamika VargheseChloride [Moles/Vol]105 mmol/BLnwdis79-636Aqc [facility] Comment on above:Performed By: #### LIPID, CMP #### [facility] [address] [place] [address] Dr. Anamika VargheseCO2 [Moles/Vol]28.1 mmol/DAaehgy08.0-32.0The [facility] Comment on above:Performed By: #### LIPID, CMP #### [facility] [address] [place] [address] Dr. Anamika VargheseCreatinine [Mass/Vol]1.58 mg/dLCritically high0.55-1.02[facility] HospitalComment on above:Performed By: #### LIPID, CMP #### [facility] [address] [place] [address] Dr. Anamika HoldenGFR-AF MOWLXHZQ58 mL/min/1.56z1Jajhbptqhv low>=60The [facility] HospitalComment on above:Performed By: #### LIPID, CMP #### [facility] [address] [place] [address] Dr. Anamika HoldenGFR-NON AF CJQEQVZA05 mL/min/1.91d8Fvhowobxao low>=60The [facility] HospitalComment on above:Performed By: #### LIPID, CMP #### [facility] [address] [place] [address] Dr. Anamika VargheseGlobulin (S) [Mass/Vol]3.6 g/dLNormalThe [facility] HospitalComment on above:Performed By: #### LIPID, CMP #### [facility] [address] [place] [address] Dr. Anamika VargheseGlucose [Mass/Vol]130 mg/dLCritically odon56-666UddOhiohealth Mansfield HospitalComment on above:Performed By: #### LIPID, CMP #### [facility] [address] [place] [address] Dr. Anamika VarghesePotassium [Moles/Vol]4.0 mmol/LNormal3.5-5.1The [facility] Comment on above:Performed By: #### LIPID, CMP #### [facility] [address] [address] [address] Anamika VargheseProtein [Mass/Vol]7.2 g/dLNormal6.4-8.2The [facility] Comment on above:Performed By: #### LIPID, CMP #### [facility] [address] [address] [address] Anamika VargheseSodium [Moles/Vol]144 mmol/QIlxtnu970-822Mro [facility] Comment on above:Performed By: #### LIPID, CMP #### [facility] [address] [address] [address] Anamika VargheseUrea nitrogen [Mass/Vol]53.0 mg/dLCritically high7.0-18.0The [facility] HospitalComment on above:Performed By: #### LIPID, CMP #### [facility] [address] [place] [address] Dr. Anamika VargheseUrea nitrogen/Creatinine [Mass ratio]33.5 mg/mgNormalThe [facility] HospitalComment on above:Performed By: #### LIPID, CMP #### [facility] [address] [place] [address] Dr. Anamika VargheseCreatinine and Glomerular filtration rate.predicted panel (S/P/Bld)Ordered By: Anand Yusuf on 91-09-0926Qrkmroyosd [Mass/Vol]1.41 mg/dL 0.44-1.03[facility] HospitalEstimated glomerular filtration rate (GFR) non- AmericanOrdered By: Anand Yusuf on 33-54-3886AMU/1.73 sq M.predicted among non-blacks MDRD (S/P/Bld) [Vol rate/Area]37 mL/MinMedina HospitalNo Panel InformationOrdered By: Anand Yusuf on 77-08-5641Snuguilxw GFR ()44 mL/MinMedina HospitalComment on above:GFR estimated reference range: According to KDOQI guidelines, <60 ml/min/1.73m2 is sufficient todiagnose a patient with chronic kidney disease.Pharmacy Creatinine Clearance ([facility] Hospitalerum or plasma anion gap determinationOrdered By: Anand Yusuf on 77-14-1535Wwgsw gap [Moles/Vol]17.5 mmol/L6.0-15.0[facility] Hospitalerum or plasma calcium measurement (mass/volume)Ordered By: Anand Yusuf on 28-19-4105Qltgpcv [Mass/Vol]8.5 mg/dL8.2-10.2FOhioHealth Shelby Hospitalerum or plasma chloride measurement (moles/volume)Ordered By: Anand Yusuf on 22-01-1855Dsfrzfmh [Moles/Vol]105 mmol/P18-860VyjxwzbvpMarymount Hospitalerum or plasma glucose measurement (mass/volume)Ordered By: Anand Yusuf on 56-54-1732Qipfrtc [Mass/Vol]97 mg/fS56-958YzmptoutsMedina HospitalComment on above:ADA recommended reference range Random [...] potassium measurement (moles/volume)Ordered By: Anand Yusuf on 38-07-6661Pitazlhii [Moles/Vol]4.3 mmol/L3.5-5.1FOhioHealth Shelby Hospitalerum or plasma sodium measurement (moles/volume)Ordered By: Anand Yusuf on 58-75-8493Ojwlzc [Moles/Vol]141 mmol/F013-444OxepsowrzMarymount Hospitalerum or plasma total carbon dioxide measurement (moles/volume)Ordered By: Anand Yusuf on 95-98-6849WU4 [Moles/Vol]22.8 mmol/L 22.0-30.0[facility] Hospitalerum or plasma urea nitrogen measurement (mass/volume)Ordered By: Anand Yusuf on 26-62-4814Khko nitrogen [Mass/Vol]37 mg/dL9-23[facility] HospitalUrine culture routine Ordered By: Anand Yusuf on 50-62-1274Ejicwxoc identified Cx Nom (U)Escherichia coliMedina HospitalAutomated erythrocytes count in urine sediment (number/area)Ordered By: Anand Yusuf on 83-22-7115QGI Auto (Urine sed) [#/Area]0-1 [HPF]0-4FJoint Township District Memorial HospitalAutomated leukocytes count in urine sediment (number/area)Ordered By: Anand Yusuf on 23-01-5588FWN Auto (Urine sed) [#/Area]5-9 [HPF]0-4FJoint Township District Memorial HospitalBasophils Auto (Bld) [#/Vol]Ordered By: Anand Yusuf on 65-50-9536Byetpyxko (Bld) [#/Vol]0.1 10*3/uL0.0-0.2FJoint Township District Memorial HospitalBasophils/100 WBC Auto (Bld) Ordered By: Anand Yusuf on 73-41-5889Cgyifsdml/100 WBC (Bld)0.5 %.[facility] HospitalBilirubin Test strip Ql (U)Ordered By: Anand Yusuf on 17-90-1862Wxjbtjrzk Ql (U)NegativeNegativeMedina HospitalBlood hemoglobin measurement (mass/volume)Ordered By: Anand Yusuf on 07-22-2022 Hemoglobin (Bld) [Mass/Vol]9.6 g/dL11.8-15.4FJoint Township District Memorial Hospital Blood leukocytes automated count (number/volume)Ordered By: Anand Yusuf on 32-30-4143RQQ (Bld) [#/Vol]11.6 10*3/uL4.5-11.0[facility] Body fluid albumin measurement (mass/volume)Ordered By: Anand Yusuf on 41-64-1404Qhylrvm (Body fld) [Mass/Vol]3.0 g/dL3.2-5.5FJoint Township District Memorial HospitalColor Auto (U)Ordered By: Anand Yusuf on 99-99-2439Xdvfr (U)YellowYellow [facility] HospitalCreatinine and Glomerular filtration rate.predicted panel (S/P/Bld)Ordered By: Anand Yusuf on 97-35-6708Xjccmsmhyj [Mass/Vol]1.63 mg/dL0.44-1.03[facility] HospitalEosinophils Auto (Bld) [#/Vol]Ordered By: Anand Yusuf on 25-05-7852Rvwmvglfahw (Bld) [#/Vol]0.1 10*3/uL0.0-0.45[facility] HospitalEosinophils/100 WBC Auto (Bld) Ordered By: Aannd Yusuf on 31-97-5950Vbjuqfyrles/100 WBC (Bld)1.0 %.[facility] HospitalErythrocyte distribution width Auto (RBC) [Ratio]Ordered By: Anand Yusuf on 74-40-3767Tyvypwzouqf distribution width (RBC) [Ratio]17.0 % 11.9-15.3FJoint Township District Memorial HospitalEstimated glomerular filtration rate (GFR) non- AmericanOrdered By: Anand Yusuf on 90-48-6216MZA/1.73 sq M.predicted among non-blacks MDRD (S/P/Bld) [Vol rate/Area]31 mL/MinMedina HospitalGlobulin Calc (S) [Mass/Vol]Ordered By: Anand Yusuf on 91-80-0353Xzrykure (S) [Mass/Vol]3.3 g/dLMedina Hospital Hematocrit Auto (Bld) [Volume fraction]Ordered By: Anand Yusuf on 07-22-2022 Hematocrit (Bld) [Volume fraction]28.6 %34.0-46.4FJoint Township District Memorial HospitalKetones Auto test strip (U) [Mass/Vol]Ordered By: Anand Yusuf on 03-32-9121Wmjoruv (U) [Mass/Vol]TraceNegativeMedina Hospital Laboratory - Chemistry and Chemistry - challengeOrdered By: Anand Yusuf on 19-15-7290Dxilhvgpf [Mass/Vol]1.4 mg/dL1.6-2.6FJoint Township District Memorial Hospital Natriuretic peptide B (Bld) [Mass/Vol]44.0 pg/mL5-100[facility] HospitalLaboratory - Hematology and Cell countsOrdered By: Anand Yusuf on 84-83-5511Vqtusvbfr RBC/100 WBC (Bld) [Ratio]0.0 %0-0.5FJoint Township District Memorial HospitalLaboratory - UrinalysisOrdered By: Anand Yusuf on 07-22-2022 Hyaline casts LM Ql (Urine sed)0-8 [LPF]0-8[facility] Lymphocytes Auto (Bld) [#/Vol]Ordered By: Anand Yusuf on 82-79-5674Qvdploemlcx (Bld) [#/Vol]1.5 10*3/uL1.00-4.8[facility] HospitalLymphocytes/100 WBC Auto (Bld)Ordered By: Anand Yusuf on 52-10-6117Xfbzqzeryzd/100 WBC (Bld) 13.0 %.[facility]H Auto (RBC) [Entitic mass]Ordered By: Anand Yusuf on 26-00-3764KEG (RBC) [Entitic mass]27.3 pg24.7-34.3FJoint Township District Memorial HospitalMCHC Auto (RBC) [Mass/Vol]Ordered By: Anand Yusuf on 93-21-2518KFLK (RBC) [Mass/Vol]33.5 g/dL32.0-35.0[facility] HospitalMCV Auto (RBC) [Entitic vol]Ordered By: Anand Yusuf on 02-42-5139HSY (RBC) [Entitic vol]81.3 lD62-955QovmmhmfwMedina HospitalMonocytes Auto (Bld) [#/Vol]Ordered By: Anand Yusuf on 42-49-0834Fdzcmpgik (Bld) [#/Vol]0.5 10*3/uL0.0-0.8[facility] HospitalMonocytes/100 WBC Auto (Bld) Ordered By: Anand Yusuf on 79-97-7353Tzrzeypha/100 WBC (Bld)4.1 %.[facility] HospitalNeutrophils Auto (Bld) [#/Vol]Ordered By: Anand Yusuf on 25-82-6716Yrsijkuormx (Bld) [#/Vol]9.5 10*3/uL1.8-7.7FJoint Township District Memorial HospitalNeutrophils/100 WBC Auto (Bld)Ordered By: Anand Yusuf on 07-22-2022 Neutrophils/100 WBC (Bld)81.4 %.[facility] HospitalNitrite Test strip Ql (U)Ordered By: Anand Yusuf on 38-57-3552Otuxcns Ql (U)NegativeNegative [facility] HospitalNo Panel InformationOrdered By: Anand Yusuf on 19-43-9061Fodinykau GFR ()37 mL/MinMedina HospitalComment on above:GFR estimated reference range: According to KDOQI guidelines, <60 ml/min/1.73m2 is sufficient todiagnose a patient with chronic kidney disease.Pharmacy Creatinine Clearance (Chem34.96[facility] HospitalPlatelet mean volume Auto (Bld) [Entitic vol]Ordered By: Anand Yusuf on 97-41-9175Qzxkpgvc mean volume (Bld) [Entitic vol]7.3 fL6.3-10.7 [facility] HospitalPlatelets Auto (Bld) [#/Vol]Ordered By: Anand Yusuf on 55-77-6541Qwflhxzik (Bld) [#/Vol]253 10*3/nY474-094BvafcnrlcMedina HospitalProtein Auto test strip (U) [Mass/Vol]Ordered By: Anand Yusuf on 74-30-3945Xjznpid (U) [Mass/Vol]NegativeNegativeMedina HospitalProtein [Mass/volume] in Serum or PlasmaOrdered By: Anand Yusuf on 73-43-5569Psytjsi [Mass/Vol]6.3 g/dL6.1-7.9[facility] HospitalRBC Auto (Bld) [#/Vol]Ordered By: Anand Yusuf on 86-42-6278QQH (Bld) [#/Vol]3.51 10*6/uL3.60-5.00[facility] Hospitalerum or plasma alanine aminotransferase measurement without P-5'-P (enzymatic activiOrdered By: Anand Yusuf on 44-03-1229CSB No additional P-5'-P [Catalytic activity/Vol]29 U/L10-60 [facility] Hospitalerum or plasma albumin/globulin mass ratio Ordered By: Anand Yusuf on 55-53-0414Dbisilh/Globulin [Mass ratio]0.9 {ratio} [facility] Hospitalerum or plasma alkaline phosphatase measurement (enzymatic activity/volume)Ordered By: Anand Yusuf on 90-69-0104GBH [Catalytic activity/Vol]99 U/D62-79EvbwmxuqlMarymount Hospitalerum or plasma anion gap determinationOrdered By: Anand Yusuf on 59-51-4383Lpbvg gap [Moles/Vol]14.3 mmol/L6.0-15.0[facility] Hospitalerum or plasma aspartate aminotransferase measurement (enzymatic activity/volume)Ordered By: Anand Yusuf on 00-26-3616DYJ [Catalytic activity/Vol]31 U/S52-88QaubnueakMarymount Hospitalerum or plasma calcium measurement (mass/volume)Ordered By: Anand Yusuf on 45-19-2815Xldjwqf [Mass/Vol]9.0 mg/dL8.2-10.2FOhioHealth Shelby Hospitalerum or plasma chloride measurement (moles/volume) Ordered By: Anand Yusuf on 06-79-9169Lcfrqbet [Moles/Vol]107 mmol/L95-114 [facility] Hospitalerum or plasma glucose measurement (mass/volume)Ordered By: Anand Yusuf on 47-08-2542Gamczji [Mass/Vol]168 mg/dL 70-100[facility] HospitalComment on above:ADA recommended reference range Random [...] potassium measurement (moles/volume)Ordered By: Anand Yusuf on 14-44-9022Bpalnopyd [Moles/Vol]5.4 mmol/L3.5-5.1FOhioHealth Shelby Hospitalerum or plasma sodium measurement (moles/volume)Ordered By: Anand Yusuf on 94-50-8333Cnkaxm [Moles/Vol]140 mmol/O698-225VxrzgyeraMarymount Hospitalerum or plasma total bilirubin measurement (mass/volume) Ordered By: Anand Yusuf on 81-00-3869Gmamsbufc [Mass/Vol]0.6 mg/dL0.3-1.2 [facility] Hospitalerum or plasma total carbon dioxide measurement (moles/volume)Ordered By: Anand Yusuf on 29-15-8459NW3 [Moles/Vol] 24.1 mmol/L22.0-30.0[facility] Hospitalerum or plasma urea nitrogen measurement (mass/volume)Ordered By: Anand Yusuf on 56-97-4187Fqvd nitrogen [Mass/Vol]53 mg/dL9-Marymount Hospitalpecific gravity Auto test strip (U) [Rel density]Ordered By: Anand Yusfu on 07-43-7609Idubrmjr gravity (U) [Rel density]1.0191.001-1.030[facility] Squamous epithelial cells detection in urine sediment by light microscopyOrdered By: Anand Yusuf on 63-33-8284Gvgnlkpaoh cells.squamous LM Ql (Urine sed)1-2 [HPF]0-2FJoint Township District Memorial HospitalTroponin I.cardiac [Mass/volume] in Serum or Plasma by High sensitivity methodOrdered By: Anand Yusuf on 07-22-2022 Troponin I.cardiac High sensitivity method [Mass/Vol]4 pg/mL0-15[facility] HospitalUrine bacteria detection by automated methodOrdered By: Anand Yusuf on 30-98-8371Uduzeolw Auto Ql (U)4+None SeenMedina HospitalUrine clarity by refractometry automatedOrdered By: Anand Yusuf on 74-88-7928Earkjir Refractometry automated (U)CloudyCleSelect Medical OhioHealth Rehabilitation HospitalUrine glucose measurement by automated test strip (mass/volume) Ordered By: Anand Yusuf on 78-94-3032Pmfvvfl Auto test strip (U) [Mass/Vol] Normal mg/dLWayne HealthCare Main CampusUrine hemoglobin detection by automated test stripOrdered By: Anand Yusuf on 45-83-5603Ohuormqxay Auto test strip Ql (U)NegativeNegativeMedina HospitalUrine lactic acid measurementOrdered By: Anand Yusuf on 82-25-8015Wswfrxe (U) [Moles/Vol]1.9 mmol/L0.5-2.2FJoint Township District Memorial HospitalUrine leukocyte esterase detection by automated test stripOrdered By: Anand Yusuf on 90-84-7301Waeshmjfz esterase Auto test strip Ql (U)2+NegativeMedina HospitalUrobilinogen Auto test strip (U) [Mass/Vol]Ordered By: Anand Yusuf on 00-80-0263Eurbhccwmwmx (U) [Mass/Vol]Normal mg/dLNoUniversity Hospitals St. John Medical CenterpH Auto test strip (U)Ordered By: Anand Yusuf on 77-20-4423nK (U)5.0 [pH]5.0-9.0[facility] HospitalFERRITINon 59-70-4760Gsktnext [Mass/Vol]39.0 ng/mLNormal 8.0-252.0The [facility] HospitalComment on above:Performed By: #### FETIBC, FERR, B12FOL #### [facility] [address] [place] [address] Dr. Anamika Raygoza AND TIBCon 06-24-2022% IFCPLOSECW59.1 %NormalThe [facility] HospitalComment on above:Performed By: #### FETIBC FERR, B12FOL #### [facility] [address] [place] [address] Dr. Anamika Raygoza [Mass/Vol]52.0 ug/sGQfecgp36.0-170.0The [facility] Comment on above:Performed By: #### FETIBC FERR, B12FOL #### [facility] [address] [place] [address] Dr. Anamika Singh CBXHPN011.0 ug/cZYllcgw943.0-450.0The [facility] Comment on above:Performed By: #### FETIBC FERR, B12FOL #### [facility] [address] [place] [address] Dr. Anamika Nolan PROFILEon 12-44-0240Ycllqaz [Mass/Vol]3.5 g/dLNormal3.4-5.0 The [facility] HospitalComment on above:Performed By: #### LIVER #### [facility] [address] [place] [address] Dr. Anamika VargheseAlbumin/Globulin [Mass ratio]1.2 {ratio}NormalThe [facility] HospitalComment on above:Performed By: #### LIVER #### [facility] [address] [place] [address] Dr. Anamika Simon [Catalytic activity/Vol]117 U/LCritically mznz89-213Yrq [facility] HospitalComment on above:Performed By: #### LIVER #### [facility] [address] [address] [address] Anamika Cook [Catalytic activity/Vol]30 U/VRsbcsh45-16Zqr [facility] HospitalComment on above:Performed By: #### LIVER #### [facility] [address] [address] [address] Anamika VargheseAST [Catalytic activity/Vol]25 U/ROunhtc48-99Djb [facility] HospitalComment on above:Performed By: #### LIVER #### [facility] [address] [address] [address] Anamika TorresI, CONJUGATED0.2 mg/dLNormal0.0-0.2The [facility] Comment on above:Performed By: #### LIVER #### [facility] [address] [address] [address] Anamika Torresirubin [Mass/Vol]0.4 mg/dLNormal0.2-1.0[facility] Comment on above:Performed By: #### LIVER #### [facility] [address] [address] [address] Anamika VargheseGlobulin (S) [Mass/Vol]3.0 g/dLNormalThe [facility] HospitalComment on above:Performed By: #### LIVER #### [facility] [address] [address] [address] Anamika VargheseProtein [Mass/Vol]6.5 g/dLNormal6.4-8.2The [facility] Comment on above:Performed By: #### LIVER #### [facility] [address] [address] [address] Anamika VargheseRETICULOCYTEon 88-22-4894KBTPU0.27 %Critically high0.60-3.10The [facility] HospitalComment on above:Performed By: #### FETIBC, FERR, B12FOL #### [facility] [address] [address] [address] Anamika Conley B12 AND FOLATEon 42-12-8817Wkxnfvwoh (Vitamin B12) [Mass/Vol] 206.0 pg/vTNoxycu437.0-986.0The [facility] HospitalComment on above:Performed By: #### FETIBC, FERR, B12FOL #### [facility] [address] [address] [address] Anamika VargheseFOLATE20.20 ng/mLNormal8.60-58.90The [facility] HospitalComment on above:Performed By: #### FETIBC, FERR, B12FOL #### [facility] [address] [place], [place] [address] Dr. Anamika VargheseBasophils Auto (Bld) [#/Vol]Ordered By: Vinay Matta on 78-50-3567Xjzptwzal (Bld) [#/Vol]0.0 10*3/uL0.0-0.2FJoint Township District Memorial HospitalBasophils/100 WBC Auto (Bld)Ordered By: Vinay Bunting on 05-21-2022 Basophils/100 WBC (Bld)0.4 %.[facility] HospitalBlood hemoglobin measurement (mass/volume)Ordered By: Vinay Matta on 42-52-3675Twahiuuptc (Bld) [Mass/Vol]9.7 g/dL11.8-15.4FJoint Township District Memorial HospitalBlood leukocytes automated count (number/volume)Ordered By: Vinay Escalerating on 80-66-1604SJJ (Bld) [#/Vol]3.7 10*3/uL4.5-11.0[facility] Body fluid albumin measurement (mass/volume)Ordered By: Vinay Matta on 81-94-5726Mpgoeim (Body fld) [Mass/Vol]3.3 g/dL3.2-5.5FJoint Township District Memorial HospitalCholesterol [Mass/volume] in Serum or PlasmaOrdered By: Vinay Bunting on 99-75-4141Wnvbnxybduo [Mass/Vol]122 mg/aT218-485HbcwhlouzMedina HospitalComment on above:Chol less than 200 mg/dl low risk Chol 201-239 mg/dl borderline risk Chol 240 mg/dl and greater high riskCholesterol in LDL Calc [Mass/Vol]Ordered By: Vinay Bunting on 34-88-6087Kheizgxmrrl in LDL [Mass/Vol]67 mg/dL0-100 [facility] HospitalComment on above:LDL ATP III CLASSIFICATION LDL less than 100 mg/dL Optimal LDL 100-129 mg/dL Near or above optimal LDL 130-159 mg/dL Borderline high LDL 160-189 mg/dL High LDL greater than 189 mg/dL Very highCholesterol in VLDL Calc [Mass/Vol]Ordered By: Vinay Bunting on 56-50-9734Pppwzniwhcx in VLDL [Mass/Vol]13 mg/dLMedina HospitalCreatinine and Glomerular filtration rate.predicted panel (S/P/Bld)Ordered By: Vinay Bunting on 33-54-9861Sranbczmmn [Mass/Vol]1.15 mg/dL0.44-1.03[facility] HospitalEosinophils Auto (Bld) [#/Vol] Ordered By: Vinay Bunting on 63-25-4181Ljatknzvgfw (Bld) [#/Vol]0.1 10*3/uL 0.0-0.45[facility] HospitalEosinophils/100 WBC Auto (Bld)Ordered By: Vinay Bunting on 51-27-1643Lzwmbjqltzv/100 WBC (Bld)3.1 %.[facility] HospitalErythrocyte distribution width Auto (RBC) [Ratio]Ordered By: Vinay Bunting on 50-79-5472Urrhzeuhwup distribution width (RBC) [Ratio]16.3 %11.9-15.3FJoint Township District Memorial HospitalErythrocyte sedimentation rate by Photometric methodOrdered By: Vinay Bunting on 96-65-3736XXI Photometric method (Bld) [Velocity]9 mm/hr0-29[facility] HospitalEstimated glomerular filtration rate (GFR) non- AmericanOrdered By: Vinay Bunting on 05-44-3288TAZ/1.73 sq M.predicted among non-blacks MDRD (S/P/Bld) [Vol rate/Area]46 mL/MinMedina HospitalGlobulin Calc (S) [Mass/Vol] Ordered By: Vinay Bunting on 18-82-4149Bmivcotd (S) [Mass/Vol]2.2 g/dLMedina HospitalGlucose mean value [Mass/volume] in Blood Estimated from glycated hemoglobinOrdered By: Vinay Bunting on 35-38-4466Lddgvax glucose Estimated from glycated hemoglobin (Bld) [Mass/Vol]166 mg/dLMedina HospitalHematocrit Auto (Bld) [Volume fraction]Ordered By: Vinay Bunting on 33-54-0055Vtkxvgykti (Bld) [Volume fraction]29.1 %34.0-46.4FJoint Township District Memorial HospitalHemoglobin A1c percentageOrdered By: Vinay Bunting on 05-21-2022 HbA1c (Bld) [Mass fraction]7.4 %4.3-5.6FJoint Township District Memorial HospitalComment on above:Increased risk for diabetes: 5.7 - 6.4 diabetes: >6.4 glycemic control for adults with diabetes: <7.0Laboratory - Hematology and Cell countsOrdered By: Vinay Bunting on 95-38-8738Dtbrhjjdl RBC/100 WBC (Bld) [Ratio]0.1 %0-0.5FJoint Township District Memorial HospitalLymphocytes Auto (Bld) [#/Vol] Ordered By: Vinay Bunting on 66-42-4622Oahtomxneto (Bld) [#/Vol]1.0 10*3/uL 1.00-4.8[facility] HospitalLymphocytes/100 WBC Auto (Bld)Ordered By: Vinay Bunting on 35-38-6066Hkzzbgopfse/100 WBC (Bld)26.3 %.[facility]H Auto (RBC) [Entitic mass]Ordered By: Vinay Bunting on 32-87-1265QXE (RBC) [Entitic mass]28.6 pg24.7-34.3FJoint Township District Memorial HospitalMCHC Auto (RBC) [Mass/Vol]Ordered By: Vinay Bunting on 01-94-9501OTEN (RBC) [Mass/Vol]33.5 g/dL32.0-35.0[facility] HospitalMCV Auto (RBC) [Entitic vol]Ordered By: Vinay Bunting on 42-70-8786UYM (RBC) [Entitic vol]85.5 yX45-976QkkzleeayMedina HospitalMonocytes Auto (Bld) [#/Vol] Ordered By: Vinay Bunting on 57-50-4074Ahahgakzq (Bld) [#/Vol]0.2 10*3/uL 0.0-0.8[facility] HospitalMonocytes/100 WBC Auto (Bld)Ordered By: Vinay Bunting on 45-10-7697Peyxtwtia/100 WBC (Bld)6.4 %.[facility] HospitalNeutrophils Auto (Bld) [#/Vol]Ordered By: Vinay Bunting on 61-48-8271Uspvqicueux (Bld) [#/Vol]2.4 10*3/uL1.8-7.7FJoint Township District Memorial HospitalNeutrophils/100 WBC Auto (Bld)Ordered By: Vinay Bunting on 05-21-2022 Neutrophils/100 WBC (Bld)63.8 %.[facility] HospitalNo Panel InformationOrdered By: Vinay Bunting on 12-20-7966Pmjrlycfl GFR ()56 mL/MinMedina HospitalComment on above:GFR estimated reference range: According to KDOQI guidelines, <60 ml/min/1.73m2 is sufficient todiagnose a patient with chronic kidney disease.Pharmacy Creatinine Clearance (ChemN/[facility] HospitalPlatelet mean volume Auto (Bld) [Entitic vol]Ordered By: Vinay Bunting on 90-15-8309Woyydymg mean volume (Bld) [Entitic vol]7.3 fL6.3-10.7FJoint [facility] HospitalPlatelets Auto (Bld) [#/Vol]Ordered By: Vinay Bunting on 49-97-8371Ymlycjqjz (Bld) [#/Vol]153 10*3/tX570-545QvfmfzsywMedina HospitalProtein [Mass/volume] in Serum or PlasmaOrdered By: Vinay Bunting on 37-37-1154Yywrzif [Mass/Vol]5.5 g/dL6.1-7.9 [facility] HospitalRBC Auto (Bld) [#/Vol]Ordered By: Vinay Bunting on 68-20-5598HCR (Bld) [#/Vol]3.40 10*6/uL3.60-5.00Marymount Hospitalerum or plasma alanine aminotransferase measurement without P-5'-P (enzymatic activiOrdered By: Vinay Bunting on 18-06-4560ZTA No additional P-5'-P [Catalytic activity/Vol]28 U/R66-28UgrpllqyfMarymount Hospitalerum or plasma albumin/globulin mass ratioOrdered By: Vinay Bunting on 14-89-8130Lqntstt/Globulin [Mass ratio]1.5 {ratio}[facility]mount Hospitalerum or plasma alkaline phosphatase measurement (enzymatic activity/volume)Ordered By: Vinay Bunting on 23-70-9316SJX [Catalytic activity/Vol]96 U/J01-45MurrurjekMarymount Hospitalerum or plasma aspartate aminotransferase measurement (enzymatic activity/volume)Ordered By: Vinay Bunting on 58-51-0522HMD [Catalytic activity/Vol]30 U/B92-26WwqqsdepsMarymount Hospitalerum or plasma calcium measurement (mass/volume)Ordered By: Vinay Bunting on 49-41-1969Mpfwqzk [Mass/Vol]8.5 mg/dL8.2-10.2FOhioHealth Shelby Hospitalerum or plasma chloride measurement (moles/volume) Ordered By: Vinay Bunting on 55-86-0787Bposlwyc [Moles/Vol]102 mmol/L95-114 [facility] Hospitalerum or plasma glucose measurement (mass/volume)Ordered By: Vinay Bunting on 65-55-9101Wvrqtop [Mass/Vol]167 mg/dL 70-100[facility]ina HospitalComment on above:ADA recommended reference range Random Glucose Reference Range is dependent on time and content of last meal. Glucose of more than 200 mg/dL in a nonstressed, ambulatory subject supports the diagnosis of Diabetes Mellitus.Serum or plasma high density lipoprotein (HDL) cholesterol measurementOrdered By: Vinay Matta on 52-05-0578Jxvebroxcej in HDL [Mass/Vol]41 mg/pA05-86CbipsaqpuMedina HospitalComment on above:HDL CHOL ATP-III CLASSIFICATION Cardiovascular Risk HDL > or equal to 60 mg/dL LOW HDL < 40 mg/dL HIGHSerum or plasma potassium measurement (moles/volume)Ordered By: Vinay Bunting on 60-95-6089Wocnvrquk [Moles/Vol]4.5 mmol/L3.5-5.1FOhioHealth Shelby Hospitalerum or plasma rheumatoid factor measurement (units/volume)Ordered By: Vinay Matta on 62-18-3724Ycatnthzkj factor Qn [IU]/mL<14.0Medina HospitalComment on above:Performed at: - [facility] [id number] [employer]x Designer: Darren Ashby PhD, Phone: [phone] or plasma sodium measurement (moles/volume)Ordered By: Vinay Matta on 99-91-5679Hhdtva [Moles/Vol]140 mmol/N245-918LlcfvgqlrMarymount Hospitalerum or plasma total bilirubin measurement (mass/volume)Ordered By: Vinay Matta on 19-53-4031Ysmhtsmyw [Mass/Vol]0.5 mg/dL0.3-1.2FJoint [facility] Serum or plasma total carbon dioxide measurement (moles/volume)Ordered By: Vinay Matta on 75-78-7221MM9 [Moles/Vol]27.2 mmol/L22.0-30.0[facility] Hospitalerum or plasma total cholesterol/high density lipoprotein (HDL) cholesterol mass ratOrdered By: Vinay Matta on 05-21-2022 Cholesterol.total/Cholesterol in HDL [Mass ratio]3.0 {ratio}<5.0[facility] Hospitalerum or plasma urea nitrogen measurement (mass/volume) Ordered By: Vinay Matta on 37-68-2145Bphy nitrogen [Mass/Vol]24 mg/dL9-23 [facility] Hospitalerum or plasma uric acid measurement (mass/volume)Ordered By: Vinay Matta on 30-33-7561Jnnxm [Mass/Vol]4.1 mg/dL 2.6-7.2FJoint Township District Memorial HospitalTriglyceride [Mass/volume] in Serum or PlasmaOrdered By: Vinay Bunhomer on 66-85-8830Qhyplgkyjxhw [Mass/Vol]68 mg/dL 35-149[facility]ina HospitalComment on above:TRIG ATP III CLASSIFICATION TRIG less than 150 mg/dL Normal TRIG 150-199 mg/dL Borderline high TRIG 200-500 mg/dL High TRIG greater than 500 mg/dL Very high Standard traceable to the Center for Disease Conrtrol and Prevention (CDC) test method.Automated basophil %on 72-10-5772Rrcbahoid/100 WBC (Bld)0.4 %[facility] CtrAutomated basophil counton 13-35-0713Hoknlzlkb (Bld) [#/Vol] 0.0 10*3/uL0.0-0.2FSelect Medical Cleveland [facility] CtrAutomated blood lymphocyte count (number/volume)on 88-80-9247Bvkrppasugg (Bld) [#/Vol]1.3 10*3/uL1.00-4.8 [facility] CtrAutomated blood lymphocyte count as percentage of total leukocyteson 18-56-6813Rmweplwsivr/100 WBC (Bld)19.5 %[facility] CtrAutomated blood monocyte counton 55-82-7364Bknsbgqzw (Bld) [#/Vol]0.3 10*3/uL0.0-0.8[facility] CtrAutomated blood platelet count (count/volume)on 01-40-7715Mubecerjw (Bld) [#/Vol]158 10*3/hL353-746SwgnakkoeDelaware County Hospital CtrAutomated blood platelet mean volume measurementon 86-69-6145Eiyeizha mean volume (Bld) [Entitic vol]7.2 fL6.3-10.7FSelect Medical [facility] CtrAutomated eosinophil %on 11-89-8346Penudanfqtk/100 WBC (Bld) 3.2 %[facility] CtrAutomated eosinophil counton 01-31-2021 Eosinophils (Bld) [#/Vol]0.2 10*3/uL0.0-0.45[facility] Automated erythrocyte distribution width ratioon 10-66-7172Jxndxczntrv distribution width (RBC) [Ratio]16.8 %11.9-15.3FAshtabula [facility] Center Automated erythrocyte mean corpuscular hemoglobin (mass per erythrocyte)on 78-69-2391ZOV (RBC) [Entitic mass]29.4 pg24.7-34.3FAshtabula County Medical Center Automated erythrocyte mean corpuscular hemoglobin concentration measurement (mass/volon 59-04-4072WUFS (RBC) [Mass/Vol]33.9 g/dL32.0-35.0[facility] CtrAutomated erythrocyte mean corpuscular volumeon 83-03-6194GWF (RBC) [Entitic vol]86.6 kQ70-789ZobpgcnyzDelaware County Hospital CtrAutomated erythrocytes count in urine sediment (number/area)on 42-69-5326MNR Auto (Urine sed) [#/Area] 0-1 [HPF][facility] CtrAutomated leukocytes count in urine sediment (number/area)on 52-36-6940YTE Auto (Urine sed) [#/Area]3-4 [HPF] [facility] CtrAutomated monocyte %on 67-45-2162Qouqgwljv/100 WBC (Bld)5.0 %[facility] CtrAutomated neutrophil %on 01-31-2021 Neutrophils/100 WBC (Bld)71.9 %[facility] CtrAutomated urine color determinationon 77-82-1804Bsdpw (U)YellowYellowDelaware County Hospital CtrBlood erythrocytes automated count (number/volume)on 12-49-5245MUB (Bld) [#/Vol]4.01 10*6/uL3.60-5.00[facility] CtrBlood hemoglobin measurement (mass/volume)on 16-02-7075Znpzokfgmr (Bld) [Mass/Vol]11.8 g/dL 11.8-15.4FSelect Medical [facility] CtrBlood leukocytes automated count (number/volume)on 08-09-4572DOL (Bld) [#/Vol]6.7 10*3/uL4.5-11.0[facility] CtrBlood neutrophil count by automated method (number/volume)on 37-44-9908Jaaqaprrbxb (Bld) [#/Vol]4.8 10*3/uL1.8-7.7FSelect Medical Cleveland Clinic [facility] CtrBody fluid albumin measurement (mass/volume)on 06-01-4314Gmwjpvk (Body fld) [Mass/Vol]3.7 g/dL3.2-5.5FSelect Medical Cleveland Clinic Rehabilitation [facility] CtrCholesterol [Mass/volume] in Serum or Plasmaon 41-90-3225Xmivicpensa [Mass/Vol]129 mg/vD311-684GicflctidDelaware County Hospital CtrComment on above:Chol less than 200 mg/dl low riskChol 201- 239 mg/dl borderline riskChol 240 mg/dl and greater high riskCholesterol in LDL [Mass/volume] in Serum or Plasma by calculationon 72-02-4214Xwfetlcfnxw in LDL [Mass/Vol]63 mg/dL0-100[facility] CtrComment on above:LDL ATP III CLASSIFICATIONLDL less than 100 mg/dL OptimalLDL 100-129 mg/dL Near or above egjujdhRPN890-081 mg/dL Borderline highLDL 160-189 mg/dL HighLDL greater than 189 mg/dL Very highCholesterol in VLDL [Mass/volume] in Serum or Plasma by calculationon 00-28-0889Jkhutfomngn in VLDL [Mass/Vol]22 mg/dLDelaware County Hospital CtrCreatinine [Mass/volume] in Urineon 43-41-2561Hurxjlvath (U) [Mass/Vol]127.7 mg/dLDelaware County Hospital CtrComment on above:No reference range establishedEstimated glomerular filtration rate (GFR) non- Americanon 32-24-3546NQQ/1.73 sq M predicted among non-blacks MDRD (S/P/Bld) [Vol rate/Area]45 mL/min/{1.73_m2}[facility] CtrGlucose mean value [Mass/volume] in Blood Estimated from glycated hemoglobinon 01-31-2021 Average glucose Estimated from glycated hemoglobin mass conc (Bld)174 mg/dL [facility] CtrHematocrit [Volume Fraction] of Blood by Automated counton 65-58-0323Xcxlcjvjcb (Bld) [Volume fraction]34.7 %34.0-46.4FSelect Medical Cleveland Clinic [facility] CtrHemoglobin A1c percentageon 28-77-5209IgY1e (Bld) [Mass fraction]7.7 %4.3-5.6FSelect Medical Cleveland Clinic [facility] CtrComment on above:Increased risk for diabetes: 5.7 - 6.4diabetes: >6.4glycemic control for adults with diabetes: <7.0Otheron 96-90-1248IGM/1.73 sq M.predicted MDRD (S/P/Bld) [Vol rate/Area]55 mL/min/{1.73_m2}[facility] CtrComment on above:GFR estimated reference range: According to KDOQI guidelines, <60 ml/min/1.73m2 is sufficient todiagnose a patient with chronic kidney disease.Nucleated RBC/100 WBC (Bld) [Ratio]0.2 %0-0.5FSelect Medical Cleveland Clinic [facility] CtrPharmacy Creatinine Clearance (ChemN/AFSelect Medical [facility] Clinic [facility] CtrProtein [Mass/volume] in Serum or Plasmaon 67-02-8930Exujbzc [Mass/Vol]6.2 g/dL6.1-7.9[facility] CtrSerum globulin measurement by calculation (mass/volume)on 01-31-2021 Globulin (S) [Mass/Vol]2.5 g/dLAdena Fayette Medical CenterSerum or plasma alanine aminotransferase measurement without P-5'-P (enzymatic activion 04-60-8824ZKO No additional P-5'-P [Catalytic activity/Vol]47 U/K74-43EfrutoszpDelaware County Hospital CtrSerum or plasma albumin/globulin mass ratioon 01-31-2021 Albumin/Globulin [Mass ratio]1.5 {ratio}[facility] CtrSerum or plasma alkaline phosphatase measurement (enzymatic activity/volume)on 01-31-2021 ALP [Catalytic activity/Vol]90 U/T99-42SsurjyxjaDelaware County Hospital CtrSerum or plasma aspartate aminotransferase measurement (enzymatic activity/volume)on 55-32-0387YWU [Catalytic activity/Vol]69 U/D61-49FovhvckqnAdena Fayette Medical Center Serum or plasma calcium measurement (mass/volume)on 34-81-3014Apywtwg [Mass/Vol] 8.4 mg/dL8.2-10.2FSelect Medical Cleveland Clinic Rehabilitation [facility] CtrSerum or plasma chloride measurement (moles/volume)on 12-84-5643Znhjixxl [Moles/Vol]100 mmol/L95-114 [facility] CtrSerum or plasma creatinine measurement with calculation of estimated glomerular filtron 00-45-0763Omvctliqcw [Mass/Vol]1.17 mg/dL0.44-1.03[facility] CtrSerum or plasma glucose measurement (mass/volume)on 04-79-1386Urigsdf [Mass/Vol]157 mg/nP41-293SyrindlijDelaware County Hospital CtrComment on above:ADA recommended reference rangeRandom Glucose Reference Range is dependent on time and content of last meal. Glucose of more than 200 mg/dL in a nonstressed, ambulatory subject supports the diagnosisof Diabetes Mellitus.Serum or plasma high density lipoprotein (HDL) cholesterol measurementon 74-20-4710Bhvcrqsfucc in HDL [Mass/Vol]43 mg/lJ98-78DwedayafjDelaware County Hospital CtrComment on above:HDL CHOL ATP-III CLASSIFICATION Cardiovascular RiskHDL > or equal to 60 mg/dL LOWHDL < 40 mg/dL HIGHSerum or plasma potassium measurement (moles/volume)on 97-39-8639Jnnrgahih [Moles/Vol]3.5 mmol/L3.5-5.1FSelect Medical [facility] CtrSerum or plasma sodium measurement (moles/volume)on 03-95-4542Llvaap [Moles/Vol]140 mmol/A424-923AkcypfsoxDelaware County Hospital CtrSerum or plasma total bilirubin measurement (mass/volume)on 98-25-8060Uiidjijmo [Mass/Vol]0.9 mg/dL0.3-1.2FAshtabula County Medical Center Serum or plasma total carbon dioxide measurement (moles/volume)on 59-36-5583YB5 [Moles/Vol]26.2 mmol/L22.0-30.0[facility] CtrSerum or plasma total cholesterol/high density lipoprotein (HDL) cholesterol mass dulce maria 71-23-5918Rsdezdrnmux.total/Cholesterol in HDL [Mass ratio]3.0 {ratio}[facility] CtrSerum or plasma urea nitrogen measurement (mass/volume)on 03-72-5725Fyzo nitrogen [Mass/Vol]23 mg/dL9-23[facility] Specific gravity of Urine by Automated test stripon 83-47-1437Upnhsiew gravity (U) [Rel density]1.0201.001-1.030[facility] CtrSquamous epithelial cells detection in urine sediment by light microscopyon 01-31-2021 Epithelial cells.squamous LM Ql (Urine sed)10-19 [HPF][facility] CtrTriglyceride [Mass/volume] in Serum or Plasmaon 47-25-3311Tbyhgbohygck [Mass/Vol]114 mg/dO43-498PknwxxrlaDelaware County Hospital CtrComment on above:TRIG ATP III CLASSIFICATIONTRIG less than 150 mg/dL NormalTRIG 150-199 mg/dL Borderline highTRIG 200-500 mg/dL High TRIG greater than 500 mg/dL Very highStandard traceable to the Center for Disease Conrtrol and Prevention (CDC) test method. Urinalysison 82-50-7844Tbaafce casts LM Ql (Urine sed)0-8 [LPF][facility] CtrUrine bacteria detection by automated methodon 01-31-2021 Bacteria Auto Ql (U)None seenNone SeenDelaware County Hospital CtrUrine clarity by refractometry automatedon 11-42-5427Rrwnmoj Refractometry automated (U)ClearCleBerger HospitalUrine glucose measurement by automated test strip (mass/volume)on 31-23-7962Mnimmlu Auto test strip (U) [Mass/Vol]Normal mg/dLNormalAdena Fayette Medical CenterUrine hemoglobin detection by automated test stripon 14-46-3483Tllcogubvm Auto test strip Ql (U) NegativeNegativeAdena Fayette Medical CenterUrine ketones measurement by automated test strip (mass/volume)on 53-86-8676Mxqlpqg (U) [Mass/Vol]Negative NegativeAdena Fayette Medical CenterUrine leukocyte esterase detection by automated test stripon 10-80-9065Amvcrviho esterase Auto test strip Ql (U)1+ NegativeAdena Fayette Medical CenterUrine microalbumin measurement with detection limit of 20 mg/L or less (mass/volume)on 16-94-5675Bzhbeax DL <= 20 mg/L (U) [Mass/Vol]0.9 mg/dL0.0-1.8A[facility] Medical CenterUrine microalbumin/creatinine mass ratioon 98-26-4314Rlhqpbv/Creatinine DL <= 20 mg/L (U) [Mass ratio]7.0 mg/g0.0-30.0[facility] CtrComment on above: 30-300 mg/g indicates an increased risk for diabetic nephropathy. Greater than 300 mg/g is consistent with clinical nephropathy. (Am. J. Kidney Disease 1995, 25:107)Urine nitrite detection by test stripon 80-77-6893Mdgrfrq Ql (U)Negative NegativeDelaware County Hospital CtrUrine pH measurement by automated test stripon 62-64-0612cN (U)5.0 [pH]5.0-9.0[facility] CtrUrine protein measurement by automated test strip (mass/volume)on 73-81-8888Pghzxiz (U) [Mass/Vol]Trace mg/dLNegativeAdena Fayette Medical CenterUrine total bilirubin detection by test stripon 51-48-2590Njbqfvjvh Ql (U)NegativeNegative [facility] CtrUrine urobilinogen measurement by automated test strip (mass/volume)on 60-72-8711Mdcvxnhfidvb (U) [Mass/Vol]Normal mg/dLNormal [facility] Vital Signs Date TimeVital SignValuePerforming NayfvvgqlBuvgdrrs52-73-2129 09:14-0400Body buqppk168.75 kgDarrin Bunting DO Work Phone: [phone] [place], [place] 7362409-08-2025 09:14-0400 Diastolic blood pyovzpwk52 mm[Hg]Vinay Bunting DO Work Phone: [phone])[address] [place], [place] [address]09-08-2025 09:14-0400 Heart rate76 /minDarrin Bunting DO Work Phone: [phone])[address]09-08-2025 09:14-0400 SaO2% (BldA) [Mass fraction]96 %Vinay Bunting DO Work Phone: 1(516)4-[address] [place], [place] 9791409-08-2025 09:14-0400 Systolic blood otqquzbg293 mm[Hg]Vinay Bunting DO Work Phone: [phone])[address] [place], [place] 979[address]08-20-2025 09:46-0400 Body fjbpxe941.48 cmDarrin Bunting DO Work Phone: 1(909)[address]08-20-2025 09:46-0400 Body mass index (BMI) [Ratio]40.2 kg/x8Otukhr Bunting DO Work Phone: [phone])[address]08-20-2025 09:46-0400 Body rzuacadsuwp48.3 [degF]Vinay Bunting DO Work Phone: [facility]08-20-2025 09:46-0400 Body .9 kgDarrin Bunting DO Work Phone: [phone])[address]08-20-2025 09:46-0400 Diastolic blood mduglbql99 mm[Hg]Vinay Bunting DO Work Phone: [phone])[address]08-20-2025 09:46-0400 Heart rate81 /minDarrin Bunting DO Work Phone: [phone])[address] [place], [place] 49[address]508-20-2025 09:46-0400 Respiratory rate18 /minDarrin Bunting DO Work Phone: [phone])[address]08-20-2025 09:46-0400 SaO2% (BldA) [Mass fraction]96 %Vinay Bunting DO Work Phone: [phone])608-[address] [place], [place] 979[address]08-20-2025 09:46-0400 Systolic blood axsoycqn218 mm[Hg]Vinay Bunting DO Work Phone: [phone]06-10-2025 10:47-0400 Body zgehzf923 cmMindy Cyrus PA-C Work Phone: [facility]06-10-2025 10:47-0400Body mass index (BMI) [Ratio]40.42 kg/v4Tendy Cyrus PA-C Work Phone: [facility]06-10-2025 10:47-0400Body temperature 97.9 [degF]Daksha Cyrus PA-C Work Phone: [facility]06-10-2025 10:47-0400Body eilrfc637.9 kgMindy Cyrus PA-C Work Phone: [facility]06-10-2025 10:47-0400Diastolic blood qtnmkxah21 mm[Hg]Daksha Cyrus PA-C Work Phone: [facility]06-10-2025 10:47-0400Heart rate84 /min Daksha Kanger PA-C Work Phone: [facility]06-10-2025 10:47-0400Respiratory rate 18 /minDaksha Kanger PA-C Work Phone: [facility]06-10-2025 10:47-4754JrC1% (BldA) [Mass fraction]94 %Daksha Kanger PA-C Work Phone: [facility]06-10-2025 10:47-0400Systolic blood vylklwfs725 mm[Hg]Daksha Kanger PA-C Work Phone: [facility]05-15-2025 09:45-0400Blood Pressure LocationVerónica Ugarte [phone]-SdfqvMercy Health St[facility]05-15-2025 09:45-0400Diastolic blood slivnvvn93 mm[Hg]Verónica Ugarte [phone]-JcvqmMercy Health St[facility]05-15-2025 09:45-0400Heart rate67 /minVerónica Ugarte [phone]-KxnfbMercy Health St. [facility] Hospital05-15-2025 09:45-0400Systolic blood znoenjgr890 mm[Hg]Verónica Ugarte [phone]-PqhxaMercy Health St. [facility] Hospital04-21-2025 09:47-0400Body gtygjd818.9 cmAngela Lowe PA Work Phone: noPhelps HealthRojbhpbkbn51-79-8127 09:47-0400Body mass index (BMI) [Ratio]41 kg/w5Ixgrem Lowe PA Work Phone: noPhelps HealthKmpbetajqm57-19-7412 09:47-0400Body weklqt61.43 kgAngela Lowe PA Work Phone: noPhelps HealthBueepvepox23-26-6250 09:47-0400Diastolic blood oaapwxhd56 mm[Hg]Tammy Lowe PA Work Phone: noPhelps HealthDqmodefboz78-98-2243 09:47-0400Systolic blood ryiqyayg580 mm[Hg]Tammy Lowe PA Work Phone: noPhelps HealthBgziqeiknx34-37-4745 14:14-0500Body mass index (BMI) [Ratio]38.7 kg/n0Vetld Cyrus PA-C Work Phone: [facility]02-21-2025 14:14-0500Body temperature 97.81 [degF]Daksha Cyrus PA-C Work Phone: [facility]02-21-2025 14:14-0500Body rfqrsa04.6 kgMindy Cyrus PA-C Work Phone: [facility]02-21-2025 14:14-0500Diastolic blood fmtoldnx58 mm[Hg]Daksha Cyrus PA-C Work Phone: [facility]02-21-2025 14:14-0500Heart rate80 /min Daksha Cyrus PA-C Work Phone: [facility]02-21-2025 14:14-0500Respiratory rate 18 /minMindy Cyrus PA-C Work Phone: [facility]02-21-2025 14:14-0055YkK3% (BldA) [Mass fraction]97 %Daksha Cyrus PA-C Work Phone: [facility]02-21-2025 14:14-0500Systolic blood gnuelcvf508 mm[Hg]Daksha Cyrus PA-C Work Phone: [facility]02-18-2025 09:44-0500Body berdxi566.9 cmAcorie Lowe PA Work Phone: noPhelps HealthBqmqmazwmz48-12-6561 09:44-0500Body mass index (BMI) [Ratio]40.06 kg/y4Jmlcjn Lowe PA Work Phone: noPhelps HealthJxwbcqyyqc11-40-1815 09:44-0500Body wyxqzf67.16 kgTammy Neffe PA Work Phone: [facility] CenterQkwzebobey42-39-2883 09:44-0500Diastolic blood vwazawvs89 mm[Hg]Tammy Neffe PA Work Phone: [facility] CenterMlsjlgrbha62-55-3552 09:44-0500Systolic blood smplzsba391 mm[Hg]Tammy Neffe PA Work Phone: [facility] CenterYnyxtedarl80-50-1148 14:16-0500Body xuvluw618.48 cmDarrin Bunting DO Work Phone: [phone])[address]02-11-2025 14:16-0500 Body mass index (BMI) [Ratio]38.9 kg/i1Mjvbzf Bunting DO Work Phone: [phone])[address] [place], [place] 7362402-11-2025 14:16-0500 Body eehscdlrepd55.5 [degF]Vinay Bunting DO Work Phone: [phone])[address] [place], [place] 7362402-11-2025 14:16-0500 Body jvxiyg00.67 kgDarrin Bunting DO Work Phone: [phone])[address] [place], [place] 7[address]2402-11-2025 14:16-0500 Diastolic blood flhfevce45 mm[Hg]Vinay Bunting DO Work Phone: 1(156)[address] [place], [place] 7362402-11-2025 14:16-0500 Heart rate80 /minDarrin Bunting DO Work Phone: [phone])5-[address] [place], [place] 9791402-11-2025 14:16-0500 Respiratory rate18 /minDarrin Bunting DO Work Phone: [phone])[address] [place], [place] 9791402-11-2025 14:16-0500 SaO2% (BldA) [Mass fraction]98 %Vinay Bunting DO Work Phone: [phone])[address]02-11-2025 14:16-0500 Systolic blood mm[Hg]Vinay Bunting DO Work Phone: 1([phone])[address] [place], [place] 7362412-30-2024 13:10-0500 Body fclpwa065.48 cmDarrin Bunting DO Work Phone: [phone])378-[address] [place], [place] 9791412-30-2024 13:10-0500 Body mass index (BMI) [Ratio]38.4 kg/o5Atbqyo Bunting DO Work Phone: [phone])598-[address] [place], [place] 9791412-30-2024 13:10-0500 Body quexvk66.25 kgDarrin Bunting DO Work Phone: 1(355)071-[address] [place], [place] 9791412-30-2024 13:10-0500 Diastolic blood uygrjxuj55 mm[Hg]Vinay Bunting DO Work Phone: [phone])[address]2024 13:10-0500 Heart rate85 /minDarrin Bunting DO Work Phone: [phone])[address] [place], [place] 4966512-30-2024 13:10-0500 SaO2% (BldA) [Mass fraction]95 %Vinay Bunting DO Work Phone: 6(663)728-[address] [place], [place] 9791412-30-2024 13:10-0500 Systolic blood eljajmfd079 mm[Hg]Vinay Bunting DO Work Phone: 4(697)316-[address] [place], [place] 9791411-22-2024 14:42-0500 Body byjmqw428 cmMindy Cyrus PA-C Work Phone: [facility]11-22-2024 14:42-0500Body mass index (BMI) [Ratio]38.74 kg/h6Qotxx Cyrus PA-C Work Phone: [facility]11-22-2024 14:42-0500Body temperature 97.11 [degF]Daksha Cyrus PA-C Work Phone: [facility]11-22-2024 14:42-0500Body tkjpaj71.7 kgMindy Cyrus PA-C Work Phone: [facility]11-22-2024 14:42-0500Diastolic blood njyswzfd35 mm[Hg]Daksha Cyrus PA-C Work Phone: [facility]11-22-2024 14:42-0500Heart rate81 /min Daksha Kanger PA-C Work Phone: [facility]11-22-2024 14:42-0500Respiratory rate 18 /minDaksha Kanger PA-C Work Phone: [facility]11-22-2024 14:42-5574IqJ2% (BldA) [Mass fraction]95 %Daksha Kanger PA-C Work Phone: [facility]11-22-2024 14:42-0500Systolic blood icntlsqh538 mm[Hg]Daksha Kanger PA-C Work Phone: [facility]11-14-2024 09:18-0500Blood Pressure LocationVerónica Ugarte [phone]-WyaxuMercy Health St[facility]11-14-2024 09:18-0500Diastolic blood nflyyyzw74 mm[Hg]Verónica Ugarte [phone]-GwfnaMercy Health St. [facility] Hospital11-14-2024 09:18-0500Heart rate74 /minVerónica Ugarte [phone]-MljtiMercy Health St. [facility] Hospital11-14-2024 09:18-0500Systolic blood hugcvuor962 mm[Hg]Verónica Ugarte [phone]-SgrxgMercy Health St. [facility] Hospital10-01-2024 08:51-0400Body xpoyxo092.9 cmQueta Prieto HOLE DIGGER OPERATOR Work Phone: noPhelps HealthHnkpmfyltm29-78-3502 08:51-0400Body mass index (BMI) [Ratio]39.49 kg/e3FrkhmxeQueta Prieto HOLE DIGGER OPERATOR Work Phone: noPhelps HealthHstbiwobpt90-62-7373 08:51-0400Body .8 kg Queta Prieto HOLE DIGGER OPERATOR Work Phone: [phone] [place], [place] [phone] 08:51-0400Diastolic blood kslmzlbi46 mm[Hg]Queta Prieto HOLE DIGGER OPERATOR Work Phone: [facility] [phone] 08:51-0400Heart rate77 /min Queta Prieto HOLE DIGGER OPERATOR Work Phone: [facility] [id number] 08:51-0400Systolic blood afyebfsd953 mm[Hg]Queta Prieto HOLE DIGGER OPERATOR Work Phone: [facility] CenterVzvveohnzc82-88-8694 12:08-0400Body temperature 97.5 [degF]DO Vinay Bunting Work Phone: 1(294)[address] [place], [place] 7362409-06-2024 12:08-0400 Diastolic blood tjmghcti67 mm[Hg]DO Vinay Bunting Work Phone: 1(827)[address] [place], [place] 7362409-06-2024 12:08-0400 Heart rate64 /minDO Vinay Bunting Work Phone: 1(637)[address] [place], [place] 7362409-06-2024 12:08-0400 Respiratory rate18 /minDO Vinay Bunting Work Phone: 1(074)[address] [place], [place] 7362409-06-2024 12:08-0400 SaO2% (BldA) [Mass fraction]98 %DO Vinay Bunting Work Phone: 1(248)[address] [place], [place] 7362409-06-2024 12:08-0400 Systolic blood umwjkomp548 mm[Hg]DO Vinay Bunting Work Phone: 1(078)[address] [place], [place] 7362409-06-2024 05:18-0400 Body glyeid28.2 kgDO Vinay Bunting Work Phone: 1(109)[address]09-05-2024 15:32-0400 Body .56 cmDO Vinay Bunting Work Phone: 1(964)[address]09-05-2024 14:00-0400 Diastolic blood cspckytr13 mm[Hg]DO Vinay Bunting Work Phone: 1(530)294-[address] [place], [place] 9791409-05-2024 14:00-0400 Heart rate76 /minDO Vinay Bunting Work Phone: 1(478)[address]09-05-2024 14:00-0400 Respiratory rate18 /minDO Vinay Bunting Work Phone: 1(654)[address] [place], [place] 7362409-05-2024 14:00-0400 SaO2% (BldA) [Mass fraction]98 %DO Vinay Bunting Work Phone: 1(930)[address] [place], [place] 7362409-05-2024 14:00-0400 Systolic blood qtwucuau303 mm[Hg]DO Vinay Bunting Work Phone: 1(698)[address] [place], [place] 7362409-05-2024 12:53-0400 Body metiroyfwpf48.7 [degF]DO Vinay Bunting Work Phone: 1(413)[address] [place], [place] 7362409-05-2024 09:57-0400 Body uppbnd295.56 cmDO Vinay Bunting Work Phone: 1(778)[address] [place], [place] 7362409-05-2024 09:57-0400 Body .34 kgDO Vinay Bunting Work Phone: 1(763)[address]08-30-2024 14:21-0400 Body mass index (BMI) [Ratio]37.85 kg/y5Wdski Cyrus PA-C Work Phone: [facility]08-30-2024 14:21-0400Body temperature 97.39 [degF]Daksha Cyrus PA-C Work Phone: [facility]08-30-2024 14:21-0400Body gegxgn45.5 kgMindy Cyrus PA-C Work Phone: [facility]08-30-2024 14:21-0400Diastolic blood bpwpxarb40 mm[Hg]Daksha Cyrus PA-C Work Phone: [facility]08-30-2024 14:21-0400Heart rate81 /min Daksha Cyrus PA-C Work Phone: [facility]08-30-2024 14:21-0400Respiratory rate 18 /minDaksha Kanger PA-C Work Phone: [facility]08-30-2024 14:21-4516HgE5% (BldA) [Mass fraction]96 %Daksha Kanger PA-C Work Phone: [facility]08-30-2024 14:21-0400Systolic blood bpedqbaf412 mm[Hg]Daksha Kanger PA-C Work Phone: [facility]08-19-2024 15:30-0400Body cysfpj034.56 cmDO Vinay Bunting Work Phone: 4(686)773[facility]56[facility]08-19-2024 15:30-0400 Body mass index (BMI) [Ratio]36.2 kg/m2DO Vinay Bunting Work Phone: [facility]08-19-2024 15:30-0400 Body oxenkmupjoo66 [degF]DO Vinay Bunting Work Phone: 8(897)973[facility]30[facility]08-19-2024 15:30-0400 Body zscwba06.76 kgDO Vinay Bunting Work Phone: 0(879)481[facility]46[facility]08-19-2024 15:30-0400 Diastolic blood mqvaddnv85 mm[Hg]DO Vinay Bunting Work Phone: [facility]08-19-2024 15:30-0400 Heart rate83 /minDO Vinay Bunting Work Phone: 1(191)800-52[facility]08-19-2024 15:30-0400 Respiratory rate18 /minDO Vinay Bunting Work Phone: 7(025)796-10[facility]08-19-2024 15:30-0400 SaO2% (BldA) [Mass fraction]97 %DO Vinay Bunting Work Phone: 8(491)320-13[facility]08-19-2024 15:30-0400 Systolic blood svmboxfn640 mm[Hg]DO Vinay Bunting Work Phone: 1(882)[address] [place], [place] 7362406-26-2024 11:41-0400 Body kvrbos455.56 cmDO Vinay Bunting Work Phone: 1(783)[address] [place], [place] 7362406-26-2024 11:41-0400 Body mass index (BMI) [Ratio]35.7 kg/m2DO Vinay Bunting Work Phone: 1(352)[address] [place], [place] 7362406-26-2024 11:41-0400 Body amhsgmsegvm58.4 [degF]DO Vinay Bunting Work Phone: 1(983)[address] [place], [place] 7362406-26-2024 11:41-0400 Body esxtex66.4 kgDO Vinay Bunting Work Phone: 1(686)[address] [place], [place] 7362406-26-2024 11:41-0400 Diastolic blood rscbpqto15 mm[Hg]DO Vinay Bunting Work Phone: 1(004)[address] [place], [place] 7362406-26-2024 11:41-0400 Heart rate88 /minDO Vinay Bunting Work Phone: 8(386)[address] [place], [place] 7362406-26-2024 11:41-0400 Respiratory rate16 /minDO Vinay Bunting Work Phone: 7(951)[address] [place], [place] 7362406-26-2024 11:41-0400 SaO2% (BldA) [Mass fraction]96 %DO Vinay Bunting Work Phone: 1(450)[address] [place], [place] 7362406-26-2024 11:41-0400 Systolic blood njuhmgjs037 mm[Hg]DO Vinay Bunting Work Phone: 3(907)[address] [place], [place] 7362405-31-2024 14:07-0400 Body Rodney Flores APRN.PHOTOSTATIC COPY MAKER Work Phone: [facility]05-31-2024 14:07-0400Body mass index (BMI) [Ratio]39.1 kg/d5Quafq Gross ZINC PLATER.PHOTOSTATIC COPY MAKER Work Phone: [facility]05-31-2024 14:07-0400Body temperature 97 [degF]Shana Mark ZINC PLATER.PHOTOSTATIC COPY MAKER Work Phone: [facility]05-31-2024 14:07-0400Body .6 kgShana Flores ZINC PLATER.PHOTOSTATIC COPY MAKER Work Phone: [facility]05-31-2024 14:07-0400Diastolic blood mm[Hg]Shana Mark ZINC PLATER.PHOTOSTATIC COPY MAKER Work Phone: [facility]05-31-2024 14:07-0400Heart rate89 /min Shana Mark ZINC PLATER.PHOTOSTATIC COPY MAKER Work Phone: [facility]05-31-2024 14:07-0400Respiratory rate 16 /minErrichard Mark ZINC PLATER.PHOTOSTATIC COPY MAKER Work Phone: [facility]05-31-2024 14:07-5646XuB5% (BldA) [Mass fraction]95 %Shana Mark ZINC PLATER.PHOTOSTATIC COPY MAKER Work Phone: [facility]05-31-2024 14:07-0400Systolic blood lmlselol237 mm[Hg]Shana Flores ZINC PLATER.PHOTOSTATIC COPY MAKER Work Phone: [facility]05-13-2024 11:48-0400Blood Pressure Arely Ugarte [phone]-AtgosMercy Health St[facility]05-13-2024 11:48-0400Diastolic blood zivlkkgh97 mm[Hg]Verónica Ugarte [phone]-JjguwMercy Health St. [facility]05-13-2024 11:48-0400Heart rate80 /minVerónica Ugarte [phone]-MpmuzMercy Health St[facility]05-13-2024 11:48-0400Respiratory rate16 /minVerónica Ugarte 169-8439Uycbfw-SkyolMercy Health St. [facility]05-13-2024 11:48-0400Systolic blood gtfokbmh245 mm[Hg]Verónica Ugarte [phone]-OysvoMercy Health St. [facility]04-11-2024 10:03-0400Body xeryyrfunzl82.7 [degF]Chair Abhishek Work Phone: [facility]04-11-2024 10:03-0400Diastolic blood hleegqzu01 mm[Hg]Chair Abhishek Work Phone: [facility]04-11-2024 10:03-0400Heart rate82 /min Chair Abhishek Work Phone: [place] [address]-11-2024 10:03-0400Respiratory rate 16 /minChair Abhishek Work Phone: [facility]04-11-2024 10:03-1566KmL5% (BldA) [Mass fraction]97 %Chair Abhishek Work Phone: [facility]04-11-2024 10:03-0400Systolic blood yzczopxz322 mm[Hg]Chair Abhishek Work Phone: [facility]03-15-2024 10:17-0400Body gvvcad355 cm Daksha Cyrus PA-C Work Phone: [facility]03-15-2024 10:17-0400Body temperature 98.2 [degF]Daksha Cyrus PA-C Work Phone: [place] [address]-15-2024 10:17-0400Body aefyew03 kg Daksha Cyrus PA-C Work Phone: [place] [address]-15-2024 10:17-0400Diastolic blood ksadmbqe06 mm[Hg]Daksha Cyrus PA-C Work Phone: [place] [address]-15-2024 10:17-0400Heart rate93 /min Daksha Cyrus PA-C Work Phone: [place] [address]-15-2024 10:17-0400Respiratory rate 16 /minMindy Cyrus PA-C Work Phone: [facility]03-15-2024 10:17-5270OqK2% (BldA) [Mass fraction]95 %Daksha Bridges PA-C Work Phone: [facility]03-15-2024 10:17-0400Systolic blood kheyrqyv059 mm[Hg]Daksha Bridges PA-C Work Phone: [facility]01-22-2024 09:08-0500Blood Pressure LocationBeth Ruth [phone]-AkrivMercy Health St. [facility]01-22-2024 09:08-0500Body taijdmpzeoi97.8 [degF]Nisa Shepherd [phone]-KcesjMercy Health St. [facility]01-22-2024 09:08-0500Diastolic blood ohqwjklm93 mm[Hg]Nisa Shepherd [phone]-DlqulMercy Health St. [facility]01-22-2024 09:08-0500Heart rate92 /minBeth Ruth [phone]-TxcemMercy Health St[facility]01-22-2024 09:08-0500Systolic blood taqtglku106 mm[Hg]Nisa Shepherd [phone]-MrxfcMercy Health St. [facility]12-05-2023 10:30-0500Body jjoocp188.56 cmPvega Delcid Other [employer] Other 12-05-2023 10:30-0500Body mass index (BMI) [Ratio] 36.04 kg/k4RrfzxAnh Delcid Other [employer] Other 12-05-2023 10:30-0500Body wzzapr07.26 kgPepepito Delcid Other [employer] Other 12-05-2023 10:30-0500Diastolic blood obqxmcpe35 mm[Hg] Anh Delcid Other [employer] Other 12-05-2023 10:30-7362ZlZ6% (BldA) [Mass fraction]95 % Anh Delcid Other [employer] Other 12-05-2023 10:30-0500Systolic blood eszbtwjr507 mm[Hg] Anh Delcid Other [facility] [employer] Other 09-08-2023 13:56-0400Body dyxlft536 cmMindy Cyrus PA-C Work Phone: [facility]09-08-2023 13:56-0400Body temperature 97.7 [degF]Daksha Cyrus PA-C Work Phone: [facility]09-08-2023 13:56-0400Body qqqezn84.63 kgMindy Cyrus PA-C Work Phone: [facility]09-08-2023 13:56-0400Diastolic blood gcxyguzf25 mm[Hg]Daksha Cyrus PA-C Work Phone: [facility]09-08-2023 13:56-0400Heart rate79 /min Daksha Cyrus PA-C Work Phone: [facility]09-08-2023 13:56-0400Respiratory rate 16 /minMindy Cyrus PA-C Work Phone: [facility]09-08-2023 13:56-3285EzT4% (BldA) [Mass fraction]95 %Daksha Cyrus PA-C Work Phone: [facility]09-08-2023 13:56-0400Systolic blood uyxoljun903 mm[Hg]Daksha Cyrus PA-C Work Phone: [facility]06-16-2023 13:42-0400Body fukekk025 cm Daksha Cyrus PA-C Work Phone: [facility]06-16-2023 13:42-0400Body temperature 97.59 [degF]Daksha Kanger PA-C Work Phone: [facility]06-16-2023 13:42-0400Body nsnozy56.62 kgMinvera Cyrus PA-C Work Phone: [facility]06-16-2023 13:42-0400Diastolic blood yikbhzxv85 mm[Hg]Daksha Cyrus PA-C Work Phone: [facility]06-16-2023 13:42-0400Heart rate82 /min Daksha Cyrus PA-C Work Phone: [facility]06-16-2023 13:42-0400Respiratory rate 18 /minMinvera Cyrus PA-C Work Phone: [facility]06-16-2023 13:42-5890BhT9% (BldA) [Mass fraction]95 %Daksha Kanger PA-C Work Phone: [facility]06-16-2023 13:42-0400Systolic blood rxshyuje592 mm[Hg]Daksha Kanger PA-C Work Phone: [facility]05-31-2023 09:26-0400Blood Pressure LocationMaher SALAM [phone]-MrtccMercy Health St. [facility]05-31-2023 09:26-0400Diastolic blood qysaulmh96 mm[Hg]Gomez SALAM [phone]-NewbjMercy Health St. [facility]05-31-2023 09:26-0400Heart rate82 /minMaher SALAM [phone]-YlkcdMercy Health St. [facility]05-31-2023 09:26-0400Respiratory rate16 /minMaher SALAM [phone]-DftcgMercy Health St. [facility]05-31-2023 09:26-3049SnK3% (BldA) [Mass fraction]96 %Jason RUSSELL [phone]-JqjcxOur [facility] Fdrwbe76-51-1403 09:26-0400Systolic blood jiyfleea995 mm[Hg]Jason RUSSELL [phone]-ZzmomMercy Health St. [facility]04-28-2023 10:00-0400Diastolic blood rixexabx46 mm[Hg]DO Vinay Bunting Work Phone: [facility]04-28-2023 10:00-0400 Heart rate76 /minDO Vinay Bunting Work Phone: [facility]04-28-2023 10:00-0400 Respiratory rate16 /minDO Vinay Bunting Work Phone: [facility]04-28-2023 10:00-0400 SaO2% (BldA) [Mass fraction]96 %DO Vinay Bunting Work Phone: [facility]04-28-2023 10:00-0400 Systolic blood hxaveyht567 mm[Hg]DO Vinay Bunting Work Phone: [facility]04-28-2023 08:00-0400 Body wqzmdryngga49.7 [degF]DO Vinay Bunting Work Phone: [facility]04-28-2023 05:27-0400 Body .8 kgDO Vinay Bunting Work Phone: [facility]04-27-2023 12:20-0400 Body xoxgxp305.48 cmDO Vinay Bunting Work Phone: [facility]03-24-2023 14:08-0400 Body ptugxg087 cmMindy Cyrus PA-C Work Phone: [facility]03-24-2023 14:08-0400Body temperature 97.2 [degF]Daksha Cyrus PA-C Work Phone: [facility]03-24-2023 14:08-0400Body kpygcv81.8 kgMindy Cyrus PA-C Work Phone: [facility]03-24-2023 14:08-0400Diastolic blood mm[Hg]Daksha Cyrus PA-C Work Phone: [facility]03-24-2023 14:08-0400Heart rate84 /min Daksha Cyrus PA-C Work Phone: [facility]03-24-2023 14:08-0400Respiratory rate 16 /minMindy Cyrus PA-C Work Phone: [facility]03-24-2023 14:08-8862NiP5% (BldA) [Mass fraction]96 %Daksha Cyrus PA-C Work Phone: [facility]03-24-2023 14:08-0400Systolic blood fxxhlcoi672 mm[Hg]Daksha Cyrus PA-C Work Phone: [facility]02-13-2023 16:28-0500Diastolic blood synriokb85 mm[Hg]DO Vinay Bunting Work Phone: [facility]02-13-2023 16:28-0500 Heart rate87 /minDO Vinay Bunting Work Phone: [facility]02-13-2023 16:28-0500 Respiratory rate16 /minDO Vinay Bunting Work Phone: [facility]02-13-2023 16:28-0500 SaO2% (BldA) [Mass fraction]96 %DO Vinay Bunting Work Phone: [facility]02-13-2023 16:28-0500 Systolic blood arpmyidk567 mm[Hg]DO Vinay Bunting Work Phone: [facility]02-13-2023 13:16-0500 Body gatrql045.56 cmDO Vinay Bunting Work Phone: [facility]02-13-2023 13:16-0500 Body piltunwonqr24.5 [degF]DO Vinay Bunting Work Phone: [facility]02-13-2023 13:16-0500 Body .06 kgDO Vinay Bunting Work Phone: [facility]02-08-2023 10:10-0500 Blood Pressure LocationBeth Ruth [phone]-TfmeyMercy Health St. [facility]02-08-2023 10:10-0500Body cfgmnkucpth56.8 [degF]Nisa Shepherd [phone]-RigulMercy Health St. [facility]02-08-2023 10:10-0500Diastolic blood srnmvazh89 mm[Hg]Nisa Shepherd [phone]-NoqfuMercy Health St. [facility]02-08-2023 10:10-0500Heart rate77 /minBeth Ruth [phone]-HgstyMercy Health St. [facility]02-08-2023 10:10-0500Systolic blood jkiytlxi380 mm[Hg]Nisa Chatmanmetz [phone]-YbrvfMercy Health St. [facility]01-27-2023 14:23-0500Body ikjhce250 cmMindy Cyrus PA-C Work Phone: [facility]01-27-2023 14:23-0500Body temperature 97.39 [degF]Daksha Cyrus PA-C Work Phone: [facility]01-27-2023 14:23-0500Body umrohe62.98 kgMindy Cyrus PA-C Work Phone: [facility]01-27-2023 14:23-0500Diastolic blood cdyjobgg97 mm[Hg]Daksha Cyrus PA-C Work Phone: [facility]01-27-2023 14:23-0500Heart rate69 /min Daksha Kanger PA-C Work Phone: [facility]01-27-2023 14:23-0500Respiratory rate 16 /minMinvera Kanger PA-C Work Phone: [facility]01-27-2023 14:23-6496TiT6% (BldA) [Mass fraction]96 %Daksha Kanger PA-C Work Phone: [facility]01-27-2023 14:23-0500Systolic blood ivkiwtmu969 mm[Hg]Daksha Kanger PA-C Work Phone: [facility]12-15-2022 13:19-0500Body temperature 98.71 [degF]Chair Abhishek Work Phone: [facility]12-15-2022 13:19-0500Diastolic blood qfmaknrg26 mm[Hg]Chair [place] Work Phone: [facility]12-15-2022 13:19-0500Heart rate82 /min Chair [place] Work Phone: [facility]12-15-2022 13:19-0500Respiratory rate 18 /minChair [place] Work Phone: [facility]12-15-2022 13:19-5700UhT3% (BldA) [Mass fraction]95 %Chair [place] Work Phone: [facility]12-15-2022 13:19-0500Systolic blood kaakjdyp040 mm[Hg]Chair [place] Work Phone: [facility]12-08-2022 13:45-0500Diastolic blood qhljmtvi02 mm[Hg]Chair [place] Work Phone: [facility]12-08-2022 13:45-0500Heart rate78 /min Chair [place] Work Phone: [facility]12-08-2022 13:45-0500Respiratory rate 16 /minChair [place] Work Phone: [facility]12-08-2022 13:45-9233NtI8% (BldA) [Mass fraction]99 %Chair Abhishek Work Phone: [place] [address]-08-2022 13:45-0500Systolic blood hihkdprz028 mm[Hg]Chair Abhishek Work Phone: [facility]12-01-2022 10:01-0500Body lwxzco322 cm Daksha Cyrus PA-C Work Phone: [facility]12-01-2022 10:01-0500Body temperature 97.9 [degF]Daksha Cyrus PA-C Work Phone: [facility]12-01-2022 10:01-0500Body bfrjoz10.07 kgMindy Cyrus PA-C Work Phone: [facility]12-01-2022 10:01-0500Diastolic blood cgeukcmy42 mm[Hg]Daksha Cyrus PA-C Work Phone: [facility]12-01-2022 10:01-0500Heart rate92 /min Daksha Cyrus PA-C Work Phone: [facility]12-01-2022 10:01-0500Respiratory rate 16 /minMindy Cyrus PA-C Work Phone: [facility]12-01-2022 10:01-8836GzQ8% (BldA) [Mass fraction]98 %Daksha Cyrus PA-C Work Phone: [facility]12-01-2022 10:01-0500Systolic blood vncbokkz415 mm[Hg]Daksha Cyrus PA-C Work Phone: [facility]11-29-2022 11:30-0500Body xsgfsa415.56 cmPeggy Delcid Other [employer] Other 11-29-2022 11:30-0500Body mass index (BMI) [Ratio] 36.39 kg/o2Pclqr [employer] Other [employer] Other 11-29-2022 11:30-0500Body geeaeclqtuy30.8 [degF]Anh Delcid Other [employer] Other 11-29-2022 11:30-0500Body lhqaiv64.16 kgPeggy Delcid Other [employer] Other 11-29-2022 11:30-0500Diastolic blood lismnltq79 mm[Hg] Anh Delcid Other [employer] Other 11-29-2022 11:30-0340QlD6% (BldA) [Mass fraction]97 % Anh Delcid Other [employer] Other 11-29-2022 11:30-0500Systolic blood mm[Hg] Anh Delcid Other [employer] Other 11-16-2022 10:51-0500Body xatfwt462 cmHenry Walker MD Work Phone: [facility]11-16-2022 10:51-0500Body temperature 96.91 [degF]Henry Walker MD Work Phone: [facility]11-16-2022 10:51-0500Body keeuwy47.07 kgHenry Walker MD Work Phone: [facility]11-16-2022 10:51-0500Diastolic blood uuounsge66 mm[Hg]Henry Walker MD Work Phone: [facility]11-16-2022 10:51-0500Heart rate92 /min Henry Walker MD Work Phone: [facility]11-16-2022 10:51-0500Respiratory rate 18 /minHenry Walker MD Work Phone: [facility]11-16-2022 10:51-2505LdJ1% (BldA) [Mass fraction]96 %Henry Walker MD Work Phone: [facility]11-16-2022 10:51-0500Systolic blood mm[Hg]Henry Walker MD Work Phone: [facility]10-18-2022 10:24-0400Diastolic blood hnpawxtn05 mm[Hg]Jose Carlos Mattson [facility]10-18-2022 10:24-0400Mean blood eqsexixu47 mm[Hg]Jose Carlos Mattson [facility]10-18-2022 10:24-0400 Systolic blood mersksec381 mm[Hg]Jose Carlos Mattson [facility]10-18-2022 10:10-0400Blood Pressure LocationDalillian Mattson [facility]10-18-2022 10:10-0400 Diastolic blood mm[Hg]Jose Carlos Mattson [facility]10-18-2022 10:10-0400Heart rate90 /Carlos Mattson [facility]10-18-2022 10:10-0400 Respiratory rate18 /Carlos Mattson [facility]10-18-2022 10:10-2341BgO7% (BldA) [Mass fraction]99 %Jose Carlos Mattson [facility]10-18-2022 10:10-0400 Systolic blood glluxnsw142 mm[Hg]Jose Carlos Mattson [facility]09-06-2022 20:31-0400 Diastolic blood hoxbfmwj57 mm[Hg]DO Vinay Bunting Work Phone: [facility]09-06-2022 20:31-0400 Heart rate73 /minDO Vinay Bunting Work Phone: [facility]09-06-2022 20:31-0400 Respiratory rate16 /minDO Vinay Bunting Work Phone: [facility]09-06-2022 20:31-0400 SaO2% (BldA) [Mass fraction]99 %DO Vinay Bunting Work Phone: [facility]09-06-2022 20:31-0400 Systolic blood mm[Hg]DO Vinay Bunting Work Phone: [facility]09-06-2022 15:52-0400 Body .56 cmDO Vinay Bunting Work Phone: [facility]09-06-2022 15:52-0400 Body [degF]DO Vinay Bunting Work Phone: [facility]09-06-2022 15:52-0400 Body zcdogm78.06 kgDO Vinay Bunting Work Phone: [facility]07-28-2022 09:33-0400 Blood Pressure LocationMaher SALAM [facility]07-28-2022 09:33-0400 Diastolic blood pqukmslj07 mm[Hg]Gomez SALAM [facility]07-28-2022 09:33-0400Heart rate87 /minMaher SALAM [facility]07-28-2022 09:33-0400 Respiratory rate14 /minMaher SALAM [facility]07-28-2022 09:33-7129ZfM4% (BldA) [Mass fraction]97 %Gomez SALAM [facility]07-28-2022 09:33-0400 Systolic blood hubroetk174 mm[Hg]Gomez SALAM [facility]07-28-2022 09:20-0400Blood Pressure LocationFlher SALAM [facility]07-28-2022 09:20-0400 Diastolic blood gogjiczi94 mm[Hg]Gomez SALAM [facility]07-28-2022 09:20-0400Heart rate92 /minMaher SALAM [facility]07-28-2022 09:20-0400 Respiratory rate29 /minMaher SALAM [facility]07-28-2022 09:20-4183CzD5% (BldA) [Mass fraction]97 %Gomez SALAM [facility]07-28-2022 09:20-0400 Systolic blood ifahoctu153 mm[Hg]Gomez SALAM [facility]07-28-2022 09:15-0400Blood Pressure LocationMaher SALAM [facility]07-28-2022 09:15-0400 Diastolic blood gfjrjkgy01 mm[Hg]Gomez SALAM [facility]07-28-2022 09:15-0400Heart rate92 /minMaher SALAM [facility]07-28-2022 09:15-0400 Respiratory rate10 /minMaher SALAM [facility]07-28-2022 09:15-5388EsL8% (BldA) [Mass fraction]91 %Gomez SALAM [facility]07-28-2022 09:15-0400 Systolic blood tgvajomp695 mm[Hg]Gomez SALAM [facility]07-28-2022 09:08-0400Body ynnnwiekxgz81.34 [degF]Gomez SALAM [facility]07-28-2022 07:48-0400Body ybehiokhuei11.8 [degF][facility] SALAM [facility]06-08-2022 09:40-0400 Diastolic blood qnrokdhd65 mm[Hg][facility] SALAM [phone]-PmshkOur [facility] [id number] 09:40-0400Heart rate78 /minMaher SAW [phone]-SpkyyOur [facility] Of [facility] 06-08-2022 09:40-0400Systolic blood hskjimyb382 mm[Hg] [facility] SALAM [phone]-GgsocOur [facility] Of [facility] Encounters Encounter DateEncounter TypeCare ProviderFacilityStart: [id number] Verónica UgarteFacility:[facility]tart: 08-07-2025 End: 56-90-2969bluinrezpkXTDIN M MUSSERFacility:[facility] HospitalStart: 07-24-2025 End: 74-71-5187fgpsrbhgpvTafjvw Bunting DO Work Phone: [facility] Work Phone: Start: 07-24-2025 End: 43-12-0986Tqfeueo encounter procedureChristopher Nathanael Henriquez DO-[facility] Work Phone: Start: 07-19-2025 End: 81-20-2854Wnefhmt encounter procedureDaryan Josse Matta DO-[facility] Work Phone: Start: 07-19-2025 End: 00-56-8587tamuigbaqqDkcieb Bunting DO Work Phone: [facility] Work Phone: Start: 07-11-2025 End: 65-66-8576lqwzzzpwomYjwmpzt A. MouchliFacility:[facility] DHStart: 07-11-2025 End: 08-05-7849Aafyzse encounter procedureVerónica Ugarte [phone]-VgxdeOur [facility] Of [facility] Start: 07-05-2025 End: 21-04-6165eqdgekumwyKfuyuz Bunting DO Work Phone: [facility] Work Phone: Start: 07-05-2025 End: 08-84-0695Duboyiz encounter procedureMarilyn Stewart MD-[facility] [place] Work Phone: Start: 06-26-2025 End: 30-93-3191Sykcapy encounter procedureDajaylenenina Josse Matta DO-Lab [facility] [place] Work Phone: Start: 06-26-2025 End: 65-53-6369zfnzafwgeaIlgrmg Bunting DO Work Phone: [facility] Work Phone: Start: 06-08-2025 End: 94-44-0454Iwtvzpjrh to same day surgery centerVerónica Ugarte MD- [facility] Work Phone: Start: 06-08-2025 End: 30-03-9716verqepehkkIzatqf Bunting DO Work Phone: [facility] Work Phone: Start: 47-16-3902Vya-patient / Non-visitBradley Rowland MD- [facility] Work Phone: Start: 06-07-2025 End: 42-74-2599Ubofdof encounter procedureNo Sh Aud Audiology Aid - Jenny Kee CI AUDComment on above:Hearing loss, mixed, bilateral (Primary Dx) Start: 06-07-2025 End: 87-99-4361mbmjfamoryPMNZJC LOWENot AvailableStart: 04-25-2025 End: 80-89-3741Nxbagk outpatient visit 15 minutesDaksha Bridges PA-C Work Phone: Hematology/OncologyComment on above:Anemia, unspecified type (Primary Dx); Iron deficiency anemia, unspecified iron deficiency anemia type; Stage 3b chronic kidney disease (HCC); Anemia in stage 3a chronic kidney disease (HCC)Start: 04-25-2025 End: 44-14-3986aczaeudpdyFPLNM M MUSSERFacility:[facility] HospitalStart: 04-18-2025 End: 41-08-4827wfnlrffxsbORBQQ M MUSSERFacility:[facility] HospitalStart: 04-11-2025 End: 96-61-1066Rthreu-up encounterDaksha Bridges PA-C Work Phone: Hematology/OncologyComment on above:labs/follow up Start: 04-07-2025 End: 92-42-4695cbynapwtmfDXMTB M MUSSERFacility:[facility] HospitalStart: 03-30-2025 End: 72-33-3024rowsnnqmiiOxbvhya A. MouchliFacility:[facility] DHStart: 03-30-2025 End: 80-05-2288Qliadnc encounter procedureVerónica Ugarte [phone]-SnceqOur [facility] Start: 03-27-2025 End: 43-72-6235fzydzpbhyaRbdxynm A. MouchliFacility:FTMCStart: 03-27-2025 End: 84-64-8775Zaoeuul encounter procedureMomacario CrArpan Ugarte [facility] Start: 03-20-2025 End: 78-74-7026vkmnoyukuwKdwpxsx Vjuanitaas Giedraitis MDFacility:PM [place] Start: 03-06-2025 End: 12-36-7439Qxlwea flowsheetAngela Lowe PA Work Phone: ana [place]Start: 03-06-2025 End: 29-95-5361Gpvwnm flowsheetAngela Lowe PA Work Phone: ana [place]Start: 03-06-2025 End: 23-45-6857Funzwa outpatient visit 25 minutesAngela Lowe PA Work Phone: ana BELLEVUEComment on above:Transient ischemic attack (Primary Dx); Polyneuropathy; Syncope and collapse; Carpal tunnel syndrome, bilateral upper limbsStart: 03-06-2025 End: 55-65-2152bxiurterraRKKVIT LOWENot AvailableStart: 02-20-2025 End: 82-66-8499gwwcneiaecPuutmgc Vytautas Giedraitis MDFacility:PM [place] Start: 02-08-2025 End: 23-81-8591Bhxekrk encounter procedureDarrin Bunting DO Work Phone: [facility]-MRI [address] Closed Work Phone: Start: 02-08-2025 End: 83-95-9092bvmizcmmdjWwwmue Bunting DO Work Phone: [facility] Work Phone: Start: 01-09-2025 End: 54-50-9393Nsnkei-up encounterDaksha Bridges PA-C Work Phone: Hematology/OncologyStart: 01-09-2025 End: 55-17-2392vhuiebtycpDgyujuz Vytautas Giedraitis MDFacility:PM [place] Start: 01-06-2025 End: 14-76-8330Rzugpf outpatient visit 15 minutesDaksha Bridges PA-C Work Phone: Hematology/OncologyComment on above:Iron deficiency anemia, unspecified iron deficiency anemia type (Primary Dx); Thrombocytopenia (HCC); Stage 3b chronic kidney disease (HCC)Start: 01-06-2025 End: 91-20-2486aevscfpwwxQKKHO M MUSSERFacility:[facility] Hamiltontart: 01-03-2025 End: 45-27-6404Hextmq flowsheetAngela Lowe PA Work Phone: [facility]Start: 01-03-2025 End: 01-70-0694Vyeslz flowsheetAngela Lowe PA Work Phone: ana NEPTUNEEVUEStart: 01-03-2025 End: 07-85-5346Fynbti outpatient visit 15 minutesAngela Lowe PA Work Phone: aNA MYRIAMEVUEComment on above:Transient ischemic attack (Primary Dx); Polyneuropathy; Carpal tunnel syndrome, bilateral upper limbsStart: 01-03-2025 End: 64-80-0444tcphostsrxLEWGWX LOWENot AvailableStart: 01-02-2025 End: 29-55-6495Vwhctoqbv encounterDaksha Bridges PA-C Work Phone: Hematology/OncologyComment on above:Lab OrdersStart: 12-28-2024 End: 47-36-3708Lbtmjqu encounter procedureDarrin Bunting DO Work Phone: [facility] Work Phone: Start: 12-28-2024 End: 21-52-1732ovyjhvubzlWnhgpe Bunting DO Work Phone: [facility] Work Phone: Start: 12-27-2024 End: 37-72-2858fppbfmfnqrYzuhar Bunting DO Work Phone: [facility] Work Phone: Start: 12-27-2024 End: 44-70-8265Oushpjc encounter procedureDarrin Bunting DO Work Phone: [facility] [place] Work Phone: Start: 12-15-2024 End: 39-68-5709Homdqan encounter procedureDarrin Bunting DO Work Phone: [facility]-XRay [facility] Work Phone: Start: 12-15-2024 End: 06-39-5949tgkxrelrygKegyjk Bunting DO Work Phone: [facility] Work Phone: Start: 11-14-2024 End: 76-25-1424Buzbyjb encounter procedureDarrin Bunting DO Work Phone: [facility] Work Phone: Start: 10-20-2024 End: 60-47-6621Shh-admission assessmentNhmacario Ugarte [facility] Start: 10-10-2024 End: 13-35-3575Dehxtfftz encounterMinvera Bridges PA-C Work Phone: Hematology/OncologyComment on above:ResultsStart: 10-07-2024 End: 39-15-6656Gtuofs outpatient visit 15 minutesDaksha Bridges PA-C Work Phone: Hematology/OncologyComment on above:Iron deficiency anemia, unspecified iron deficiency anemia type (Primary Dx); Thrombocytopenia (HCC); Stage 3b chronic kidney disease (HCC)Start: 10-07-2024 End: 38-12-5942jcvoyfmdrzPDNJG M MUSSERFacility:[facility]iltontart: 10-06-2024 End: 61-71-0976Iqisnbp encounter procedureDarrin Bunting DO Work Phone: [facility]-Electrodiagnostics Work Phone: Start: 10-06-2024 End: 65-59-2029tpugwmohnrKhyjsk BuntingFacility:[facility] Hospitaltart: 10-05-2024 End: 64-57-8268Orikefs encounter procedureNoms Aud Audiology Aid - Jenny Sweet CI AUDComment on above:Hearing loss, mixed, bilateral (Primary Dx) Start: 10-05-2024 End: 90-05-7406hdekjiwageEUBPCJ LOWENot AvailableStart: 09-29-2024 End: 73-11-1986sgltampryjBfvpjak A. MouchliFacility:[facility] DHStart: 09-29-2024 End: 28-15-2570Wusgxhg encounter procedureMomacario Ugarte [phone]-CvpalOur Lady Of Mer[facility] Start: 09-19-2024 End: 79-17-2020Qwzdwog encounter procedureDO Vinay Bunting Work Phone: [facility] [place] Work Phone: Start: 09-19-2024 End: 76-26-1868micorkjovoUH Vinay Bunting Work Phone: [facility] Work Phone: Start: 08-16-2024 End: 90-53-6752Fbnpsu flowsheetFelicia C Ulyssesnagel HOLE DIGGER OPERATOR Work Phone: noMS [address] STATE R[address]TEStart: 08-16-2024 End: 57-58-4891Jgvmza flowsheetFelicia C Windnagel HOLE DIGGER OPERATOR Work Phone: [facility] [address] STATE R[address]TEStart: 08-16-2024 End: 70-33-8621Fwwswk outpatient visit 25 minutesFelicia C Chepegel HOLE DIGGER OPERATOR Work Phone: [facility] [address] STATE ROUTEComment on above:Transient ischemic attack (Primary Dx); Palpitations; PolyneuropathyStart: 08-16-2024 End: 90-05-0025sgtoksnigsFIDOHHM C CONNERNot AvailableStart: 07-21-2024 End: 94-36-3942Mvmrsmfkvn and management of inpatientDO Vinay Bunting Work Phone: [facility] [place] [facility] Work Phone: Start: 07-21-2024 End: 05-57-6904iaikrltucvx encounterDO Vinay Bunting Work Phone: [facility] Work Phone: Start: 07-19-2024 End: 31-57-7345Vyidazkfq encounterMinvera Bridges PA-C Work Phone: Hematology/OncologyComment on above:ResultsStart: 07-15-2024 End: 54-79-2622Shcxxe outpatient visit 15 minutesMinvera Bridges PA-C Work Phone: Hematology/OncologyComment on above:Iron deficiency anemia, unspecified iron deficiency anemia type (Primary Dx); Anemia of chronic renal failure, unspecified CKD stageStart: 07-04-2024 End: 18-87-7006kphronsdopMZ Vinay Bunting Work Phone: [facility] Work Phone: Start: 07-04-2024 End: 12-92-3769Oykvrwy encounter procedureDO Vinay Bunting Work Phone: [facility] Work Phone: Start: 05-24-2024 End: 18-77-9416mizjwwupcjUA Vinay Bunting Work Phone: [facility] Work Phone: Start: 05-24-2024 End: 01-22-5140Evlidle encounter procedureDO Vinay Bunting Work Phone: [facility]-Ultrasound [facility] [place] Work Phone: Start: 05-11-2024 End: 77-14-6366bwlykgbxfgSZ Vinay Bunting Work Phone: [facility] Work Phone: Start: 05-11-2024 End: 79-72-2362Qbbborh encounter procedureDO Vinay Bunting Work Phone: [facility] Nephrology Work Phone: Start: 79-12-7826Hvtarteeq encounterSamantha Mcmahan RN Hematology/OncologyComment on above:ResultsStart: 04-15-2024 End: 21-68-3762Mszglms encounter procedureShana Flores APRN.PHOTOSTATIC COPY MAKER Work Phone: Hematology/OncologyComment on above:Iron deficiency anemia, unspecified iron deficiency anemia type (Primary Dx); Anemia of chronic renal failure, unspecified CKD stage; Thrombocytopenia (HCC)Start: 03-28-2024 End: 20-52-2351Ceproxz encounter procedureVerónica Ugarte [phone]-NvaosOur Lady Of Mer[facility] Start: 02-25-2024 End: 59-82-2169pbaiskunddCyqpg [address] [place] Work Phone: Hematology/OncologyComment on above:Iron deficiency anemia due to chronic blood loss (Primary Dx)Start: 02-18-2024 End: 18-36-9212yfwajquefpOuclr [address] [place] Work Phone: Hematology/OncologyComment on above:Iron deficiency anemia due to chronic blood loss (Primary Dx)Start: 02-11-2024 End: 97-73-8905crxacorvkgGE Vinay Bunting Work Phone: [facility] Work Phone: Start: 02-11-2024 End: 30-07-3995Muqnjck encounter procedureDO Vinay Bunting Work Phone: [facility]-XRay [facility] [place] Work Phone: Start: 56-84-4094Wgxppm WorkLorkerri POTTERW Hematology/OncologyStart: 19-71-5725Fsdvuboyz encounterSamantha Mcmahan RN Hematology/OncologyComment on above:IV IronStart: 11-85-9759Gckybuilb encounter Samantha Mcmahan RNHematology/OncologyComment on above:Patient UpdateStart: 01-29-2024 End: 72-06-5310jvacjuwdnuMuize M Musser PA-C Work Phone: Hematology/OncologyComment on above:Stage 3b chronic kidney disease (HCC) (Primary Dx); Iron deficiency anemia secondary to inadequate dietary iron intakeStart: 01-29-2024 End: 11-40-7818Rkaqmar encounter procedureDaksha Bridges PA-C Work Phone: SANDUSKYStart: 01-28-2024 End: 48-33-8012Yuknofz encounter Ijeoma Hankins Ruth [facility] Start: 12-07-2023 End: 46-63-0642Rrungyq encounter Ijeoma Hankins Ruth [phone]-WfqhtOur Lady Of [facility] Start: 44-01-0321Vdwuxrzra encounterSamantha Mcmahan RN Hematology/OncologyComment on above:ResultsStart: 71-78-9666Oyaoyx outpatient visit 25 minutesPeggy [facility] OutPtStart: 10-20-2023 End: 59-72-2536kvluzjwuxgHF Vinay Bunting Work Phone: [facility] Work Phone: Start: 10-20-2023 End: 73-01-7301Lwxeljs encounter procedureDO Vinay Bunting Work Phone: [facility]-Sleep Lab Work Phone: start: 09-05-2023 End: 93-05-4965gdtxdpqsodHT Vinay Bunting Work Phone: [facility] Work Phone: Start: 09-05-2023 End: 92-02-7466Imnjhmf encounter procedureDO Vinay Bunting Work Phone: [facility]-Lab [facility] [place] Work Phone: Start: 78-54-0332Ruhxrwbin encounterSamantha Mcmahan RN Hematology/OncologyComment on above:ResultsStart: 07-24-2023 End: 02-14-6469nnajzbywkoTpyjn M Musser PA-C Work Phone: Hematology/OncologyComment on above:Iron deficiency anemia secondary to inadequate dietary iron intake (Primary Dx); Stage 3b chronic kidney disease (HCC)Start: 07-24-2023 End: 67-09-3627Fmuanhz encounter procedureDaksha Bridges PA-C Work Phone: SANDUSKYStart: 72-40-6581Rplvymqnn encounterDaksha Bridges PA-C Work Phone: Hematology/OncologyComment on above:ResultsStart: 55-95-6766Hbnoscsuq encounterKarlie Vallejo RNHematology/OncologyComment on above:ResultsStart: 05-01-2023 End: 23-71-7263ldfmhofnykKojsm M Musser PA-C Work Phone: Hematology/OncologyComment on above:Iron deficiency anemia secondary to inadequate dietary iron intake (Primary Dx); Stage 3b chronic kidney disease (HCC)Start: 05-01-2023 End: 71-81-9960Kpeousn encounter procedureDaksha Bridges PA-C Work Phone: SANDUSKYStart: 34-57-0017qsfyvnxvxjXzingtxu:9090Start: 04-22-2023 End: 34-80-1678Jnhknvi encounter procedureJason RUSSELL [facility] Start: 04-15-2023 End: 10-18-4369Mcmlgjl encounter procedureMaher SALAM [phone]-JltkwOur Lady Of [facility] Start: 03-27-2023 End: 68-37-3631ofyphweakeTB VINAY BUNTINGFacility:R0Hupaq: 03-13-2023 End: 73-98-5215hlikwmxahdXF Vinay Bunting Work Phone: [facility] Work Phone: Start: 03-13-2023 End: 47-65-4461Ddhnujw encounter procedureDO Vinay Bunting Work Phone: [facility]-Electrodiagnostics Work Phone: Start: 03-11-2023 End: 60-11-4978Uywcsyaqjg and management of inpatientDO Vinay Bunting Work Phone: [facility] [place] [facility] Work Phone: Start: 01-45-5863usgyrsxolwQefalbar:9090Start: 02-23-2023 End: 39-74-6735shomijyebiTTAHT SALAMFacility:M1Hgtcn: 99-48-5510Qjdnvaocd encounterSonia Rg RNHematology/OncologyComment on above:ResultsStart: 02-06-2023 End: 69-53-6406vwohnuheliHapmuChito Bridges PA-C Work Phone: Hematology/OncologyComment on above:Iron deficiency anemia secondary to inadequate dietary iron intake (Primary Dx)Start: 02-06-2023 End: 60-90-7854Tjmplrh encounter Tiffani Bridges PA-C Work Phone: SANDUSKYStart: 01-16-2023 End: 81-18-9451Bjytkmz encounter procedureDO Vinay Bunting Work Phone: [facility]-Lab [facility] [place] Work Phone: Start: 01-08-2023 End: 45-28-3264Owghlwm encounter procedureNisa Cr Shepherd [facility] Start: 12-29-2022 End: 80-82-7501Rvagozdvb to same day surgery [facility] Vinay Matta Work Phone: [facility] CenterStart: 12-29-2022 End: 59-63-8708wsaisqqzqjPH Vinay Bunhomer Work Phone: [facility] Work Phone: Start: 12-24-2022 End: 02-38-3479Neadjli encounter procedureNisa Hankins Ruth [phone]-HmmbiOur Lady Of Mercy [facility] Start: 67-82-5340Jygitjuks encounterSonia Rg RN Hematology/OncologyComment on above:ResultsStart: 12-12-2022 End: 08-66-9928yxlrbprvhfPayhv M Musser PA-C Work Phone: Hematology/OncologyComment on above:Iron deficiency anemia secondary to inadequate dietary iron intake (Primary Dx)Start: 12-12-2022 End: 42-67-5791Gfmhcux encounter Tiffani Bridges PA-C Work Phone: SANDUSKYStart: 10-30-2022 End: 94-29-7579zeyzqawbenJqllt [address] [place] [address] Work Phone: Hematology/OncologyComment on above:Iron deficiency anemia due to chronic blood loss (Primary Dx)Start: 10-23-2022 End: 35-60-7106ppquzpudodHmdvu [address] [place] [address] Work Phone: Hematology/OncologyComment on above:Iron deficiency anemia due to chronic blood loss (Primary Dx)Start: 49-79-5665Yfcqcn WorkRenetta OPTTERWHematology/OncologyStart: 10-16-2022 End: 04-24-0037Kczbhnt encounter Tiffani Bridges PA-C Work Phone: SANDUSKYStart: 10-16-2022 End: 36-07-7881aabllihwtmMlhzeChito Bridges PA-C Work Phone: Hematology/OncologyComment on above:Anemia, unspecified type (Primary Dx); Iron deficiency anemia secondary to inadequate dietary iron intakeIron deficiency anemia due to chronic blood loss (Primary Dx)Start: 10-15-2022 Telephone encounterFinancial Navigator Braden Work Phone: Hematology/OncologyComment on above:Benefits InvestigationStart: 61-66-8004Nnocyo outpatient visit 25 minutesPeggy [facility] SouthStart: 10-14-2022 End: 02-32-7733mdluyzeexkQH Vinay Matta Work Phone: [facility] Work Phone: Start: 10-14-2022 End: 62-56-8850Qvadhyj encounter procedureDO Vinay Matta Work Phone: [facility]-Sleep LabStart: 16-33-5782Slwwax WorkLori Alex WHematology/OncologyStart: 66-57-0170Ormpqmeoy encounterHenry Walker MD Work Phone: Hematology/OncologyComment on above:Results, LabStart: 10-01-2022 End: 63-60-2663lisdqfiyzzNreshTad Walker MD Work Phone: Hematology/OncologyComment on above:Anemia, unspecified type (Primary Dx)Start: 10-01-2022 End: 70-93-5426Hpawmnp encounter Declan Walker MD Work Phone: SANDUSKYStart: 92-75-3752Naqqb abstractBraden Walker MD Work Phone: Hematology/OncologyStart: 09-19-2022 End: 80-58-6068Rmgdfmg encounter procedureNisa Shepherd [facility] Start: 09-09-2022 End: 99-45-4140fjnjmegyuzPL DOCTOR MISCFacility:J6Unacf: 09-02-2022 End: 05-85-7585Bkifvkq encounter procedureDalillian Mattson [facility] Start: 07-31-2022 End: 98-53-0842Hkpulxg encounter procedureDO Vinay Bunting Work Phone: [facility] Start: 07-24-2022 End: 91-40-5415Csidqwr encounter procedureDO Vinay Bunting Work Phone: [facility]-Lab Main CampusStart: 07-22-2022 End: 48-77-2392Fzwbaulmh department patient visitDO Vinay Bunting Work Phone: [facility]-Emergency RoomStart: 06-24-2022 End: 10-07-2946pbyaewdyozQTSRJ SALAMFacility:U7Bhmzm: 06-23-2022 End: 80-91-0032bagjwtmaveAM VINAY BUNTINGFacility:Z8Tmmgw: 06-16-2022 End: 04-74-8763Wyndavq encounter procedureDO Vinay Bunting Work Phone: [facility] Start: 06-12-2022 End: 33-32-3605Amhqncs encounter procedureMaher SALAM [facility] Start: 05-21-2022 End: 61-19-4924Qsfxfbo encounter procedureDO Vinay Bunting Work Phone: [facility]-Lab Main CampusStart: 04-23-2022 End: 62-73-1113Vemntyg encounter procedureMaher SALAM [phone]-DbiopOur Lady Of Mercy [facility] Start: 04-22-2022 End: 25-22-4942Bggfqjd encounter procedureDO Vinay Bunting Work Phone: [facility]Start: 01-31-2021 End: 65-20-2236Lhrcpwq encounter procedureDarrin Bunting-[facility] [place] Procedures DateProcedureProcedure DetailPerforming ClinicianStart: 35-26-4005Gnkpb X-ray of bilateral shouldersDarrin Bunting DO Work Phone: Start: 43-80-7164T-ray of both knees, standing views Vinay Bunting DO Work Phone: Start: 36-27-3781Xshtvpqetr elastography of liver Vinay Bunting DO Work Phone: Start: 45-21-7330RU lumbar spine wo conDarrin Bunting DO Work Phone: Start: 97-75-2760Zfmao cultureDarrin Bunting DO Work Phone: Start: 31-27-9573Laeysrofm mammography of bilateral breastsDarrin Bunting DO Work Phone: Start: 06-07-3372A-ray of lumbar spine, six views including bending viewsDarrin Bunting DO Work Phone: Start: 30-18-0419HAEH-CoV-2, Influenza & RSV (PCR)DO Vinay Bunting Work Phone: Start: 15-98-7741Puoqnll ultrasonography of bilateral carotid arteriesDO Vinay Bunting Work Phone: Start: 18-24-0303UPZ of headDO Vinay Bunting Work Phone: Start: 35-24-5429YP of head without contrastDO Vinay Bunting Work Phone: Start: 27-89-7134Epnii chest X-rayDO Vinay Bunting Work Phone: Start: 23-16-1128Fimbqkceopdbbvb of bilateral kidneys DO Vinay Bunting Work Phone: Start: 85-28-0859Dblvok tunnel syndrome (disorder) Verónica Ugarte Start: 56-40-6886Nacgw chest X-rayDO Vinay Bunting Work Phone: Start: 07-69-4824BJC of headDO Vinay Bunting Work Phone: Start: 53-84-5635UW angiography of headDO Vinay Bunting Work Phone: Start: 09-26-1674ID angiography of neck vesselsDO Vinay Bunting Work Phone: Start: 38-18-9855GX of head without contrastDO Vinay Bunting Work Phone: Start: 93-28-0083Alxoy chest X-rayDO Vinay Bunting Work Phone: Start: 00-91-1330Neqyy cultureDO Vinay Bunting Work Phone: Start: 45-35-4808CqpfkqcbxrtYP Vinay Bunting Work Phone: Start: 35-77-1858Hvma energy X-ray absorptiometryDO Vinay Bunting Work Phone: Start: 66-03-6572Kvxkn chest X-rayDO Vinay Bunting Work Phone: Start: 16-22-6242Wfxlrhrst mammography of bilateral breastsDO Vinay Bunting Work Phone: Start: 77-86-5474AsvoucccqxuDbmlzqx Windnagel HOLE DIGGER OPERATOR Work Phone: Start: 41-63-8990BghejlbsiafWheni SALAM Start: 03-41-0776OtztzmufhqbuwxbmnzfphthihxLtabi SALAM Start: 08-76-1487A-ray of both kneesDO Vinay Bunhomer Work Phone: Scar managementMaher RUSSELL Urine cultureDO Vinay Bunhomer Work Phone: Plan of Treatment DateCare ActivityDetailAuthorStart: 25-07-2190Icfkjivvx for malignant neoplasm of colonNOMS HealthcareStart: 14-16-4870Mmrjgjsl ScreeningDiabetes Screening [facility]: 94-18-0662Wzirbccw ScreeningDiabetes ScreeningMartins Ferry Hospitaltart: 34-01-7858Ebqwgwdl ScreeningDiabetes ScreeningSalem Regional Medical Center Start: 79-30-3439Bekjonkc ScreeningDiabetes ScreeningMartins Ferry Hospitaltart: 85-59-4599Sgfslivq ScreeningDiabetes ScreeningMartins Ferry Hospitaltart: 01-28-2027 Diabetes ScreeningDiabetes ScreeningMartins Ferry Hospitaltart: 66-46-3928Ucxbashp ScreeningDiabetes ScreeningMartins Ferry Hospitaltart: 31-55-5623HRYTJMBB SCREEN DIABETES SCREENMartins Ferry Hospitaltart: 54-04-9605RCQLAINB SCREENDIABETES SCREEN [facility]: 98-11-6606Uaqajtsq blood countHemoglobin/Hematocrit [facility]: 14-33-1716Fznydsbloo measurementSerum CreatinineMartins Ferry Hospitaltart: 59-70-6202IWOPCSIT SCREENDIABETES SCREENMartins Ferry Hospitaltart: 91-16-9771Ejbqnylq blood countHemoglobin/HematocritMartins Ferry Hospitaltart: 03-46-4899Offttsnrdd measurementSerum CreatinineMartins Ferry Hospitaltart: 33-25-2328DOJRJAME SCREENDIABETES SCREENMartins Ferry Hospitaltart: 10-07-2025 Complete blood countHemoglobin/HematocritMartins Ferry Hospitaltart: 10-07-2025 Creatinine measurementSerum CreatinineMartins Ferry Hospitaltart: 35-07-7021YKTVLZGT SCREENDIABETES SCREENMartins Ferry Hospitaltart: 08-04-2025 End: 86-92-6344Rkgsmn-up ynffavhkp09/19/2025 11:00 AM EDT Visit (SP) Office Hematology/Oncology [address] [place] [address] Daksha Bridges PA-C [address] [place] [address] 3 month follow up with Daksha and labHematology/OncologyComment on above:3 month follow up with Daksha and labStart: 08-04-2025 End: 88-70-8500Thkfypm encounter exgrrrkkp16/19/2025 10:45 AM EDT Office Visit [facility] [address] [place] [address] 3 month follow up with Daksha and labNortHolland Hospital LaboratoryComment on above:3 month follow up with Daksha and lab Start: 86-36-1845Biquugwgm vaccinationInfluenza Vaccine (#1)[facility] Start: 74-54-7712Ubbokjpu blood countHemoglobin/HematocritCleveland ClinicStart: 75-09-5128Gpdkbcomog measurementSerum CreatinineCleveland ClinicStart: 06-26-2025 End: 52-54-2716Iwcqala encounter /11/2025 10:00 AM EDT Office Visit [facility] [address] [place] [address] Trudy Wesis PA [address] [place] [address] [facility]: 84-70-0407WtwgyyfzuMarymount Hospitaltart: 17-94-0125Nmempomv blood countHemoglobin/HematocritCleveland ClinicStart: 43-07-3740Prktoodomy measurementSerum CreatinineCleveland ClinicStart: 04-07-2025 End: 03-57-9799Frxcdg-up etevqmrst13/23/2025 2:00 PM EDT Visit (SP) Office Hematology/Oncology [address] [place] [phone] Daksha Bridges PA-C [address] [place] [address] 3 month follow up with Daksha and labHematology/OncologyComment on above:3 month follow up with Daksha and labStart: 04-07-2025 End: 03-72-4168Nntriie encounter wdpegemzi01/23/2025 1:45 PM EDT Office Visit [facility] [address] [place] [address] 3 month follow up with Daksha and labNortHolland Hospital LaboratoryComment on above:3 month follow up with Daksha and lab Start: 04-05-2025 End: 79-43-8189RPZ W Auto Differential panel - BloodCOMPLETE BLOOD COUNT AND DIFFERENTIAL Lab Routine Iron deficiency anemia, unspecified iron deficiency anemia type Thrombocytopenia (HCC) Stage 3b chronic kidney disease (HCC) Expected: 04/05/2025 (Approximate), Expires: 07/05/2025[place] ClinicComment on above:Expected: 04/05/2025 (Approximate), Expires: 07/05/2025Start: 04-05-2025 End: 06-68-6956Mvscdhmddywrv metabolic 2000 panel - Serum or PlasmaCOMPREHENSIVE METABOLIC PANEL Lab Routine Iron deficiency anemia, unspecified iron deficiency anemia type Thrombocytopenia (HCC) Stage 3b chronic kidney disease (HCC) Expected: 04/05/2025 (Approximate), Expires: 07/05/2025[facility] ClinicComment on above:Expected: 04/05/2025 (Approximate), Expires: 07/05/2025Start: 04-05-2025 End: 09-28-6884Rstenenz [Mass/volume] in Serum or PlasmaFERRITIN Lab Routine Iron deficiency anemia, unspecified iron deficiency anemia type Thrombocytopenia (HCC) Stage 3b chronic kidney disease (HCC) Expected: 04/05/2025 (Approximate), Expires: 07/05/2025[facility] ClinicComment on above:Expected: 04/05/2025 (Approximate), Expires: 07/05/2025Start: 04-05-2025 End: 72-26-1136Wymr and Iron binding capacity panel - Serum or PlasmaIRON AND TIBC Lab Routine Iron deficiency anemia, unspecified iron deficiency anemia type Thrombocytopenia (HCC) Stage 3b chronic kidney disease (HCC) Expected: 04/05/2025 (Approximate), Expires: 07/05/2025[place] [facility] Work Phone: Comment on above:Expected: 04/05/2025 (Approximate), Expires: 07/05/2025Start: 04-05-2025 End: 17-03-4578PYVJOZMMVLUS COUNTRETICULOCYTE COUNT Lab Routine Iron deficiency anemia, unspecified iron deficiency anemia type Thrombocytopenia (HCC) Stage 3b chronic kidney disease (HCC) Expected: 04/05/2025 (Approximate), Expires: 07/05/2025[facility]formerly [facility] ClinicComment on above:Expected: 04/05/2025 (Approximate), Expires: 07/05/2025Start: 03-06-2025 End: 72-57-9553Vrhywtf encounter procedureANA BERLINComment on above:Arrived Start: 93-32-1505Dwsxuehm blood countHemoglobin/HematocritMartins Ferry Hospitaltart: 86-29-7531Gcaahrtmms measurementSerum CreatinineCleMcKitrick Hospitaltart: 67-00-7395Asnjj screening for proteinDiabetes: Urine Protein ScreeningMid Missouri Mental Health CenterStart: 01-06-2025 End: 14-99-0628Gnpbhj-up pqttdwxsa52/21/2025 2:30 PM EST Visit (SP) Office Hematology/Oncology [address] [place] [phone] Daksha Bridges, PAGayleC [address] [place] [address] 3 month follow up with labHematology/OncologyComment on above:3 month follow up with labStart: 01-06-2025 End: 12-01-8065Wyxjxap encounter ezhximerh68/21/2025 2:15 PM EST Office Visit [facility] [address] [place] [address] 3 month follow up with labNortHolland Hospital LaboratoryComment on above:3 month follow up with labStart: 01-03-2025 End: 82-04-3031Jcpfgsw encounter procedureNOMS [place] STATE ROUTEComment on above:ArrivedStart: 01-02-2025 End: 47-94-2653JOR W Auto Differential panel - BloodCOMPLETE BLOOD COUNT AND DIFFERENTIAL Lab Routine Iron deficiency anemia, unspecified iron deficiency anemia type Expected: 01/02/2025, Expires: 04/03/2025[facility] Work Phone: Comment on above:Expected: 01/02/2025, Expires: 04/03/2025Start: 01-02-2025 End: 65-04-6147Nytjoaprumyfr metabolic 2000 panel - Serum or PlasmaCOMPREHENSIVE METABOLIC PANEL Lab Routine Iron deficiency anemia, unspecified iron deficiency anemia type Expected: 01/02/2025, Expires: 04/03/2025[facility] ClinicComment on above:Expected: 01/02/2025, Expires: 04/03/2025Start: 01-02-2025 End: 64-66-4384Rhgmbuvx [Mass/volume] in Serum or PlasmaFERRITIN Lab Routine Iron deficiency anemia, unspecified iron deficiency anemia type Expected: 01/02, Expires: 04/03/2025[facility] ClinicComment on above:Expected: 01/02/2025, Expires: 04/03/2025Start: 01-02-2025 End: 20-35-6681Wwrc and Iron binding capacity panel - Serum or PlasmaIRON AND TIBC Lab Routine Iron deficiency anemia, unspecified iron deficiency anemia type Expected:01/02/2025, Expires: 04/03/2025[facility] ClinicComment on above: Expected: 01/02/2025, Expires: 04/03/2025Start: 01-02-2025 End: 97-15-3916YKEROWWUHLDK COUNTRETICULOCYTE COUNT Lab Routine Iron deficiency anemia, unspecified iron deficiency anemia type Expected: 01/02/2025, Expires: 04/03/2025[place] ClinicComment on above:Expected: 01/02/2025, Expires: 04/03/2025Start: 71-63-2683Mkukweoy identified in Urine by CultureUrine Culture [facility]: 12-54-9103Nmwhg cultureMarymount Hospitaltart: 12-05-2024 End: 76-15-5475Avhqztt encounter pqqersntf92/20/2025 8:40 AM EST Office Visit [facility] [place] [address] [place] [address] Queta Prieto, HOLE DIGGER OPERATOR [address] [place] [address] [facility] [place] [facility] ROUTEStart: 11-16-2024 Advance Directive DiscussionAdvance Directive DiscussionClebarney children's medical center ClinicStart: 01-01-2025Medicare Advantage [facility] Annual Wellness VisitMartins Ferry Hospitaltart: 10-15-2024 End: 01-57-5669ISJ W Auto Differential panel - BloodCOMPLETE BLOOD COUNT AND DIFFERENTIAL Lab Routine Iron deficiency anemia, unspecified iron deficiency anemia type Anemia of chronic renal failure, unspecified CKD stage Expected: 10/15/2024, Expires:01/14/2025[place] [facility] Work Phone: Comment on above:Expected: 10/15/2024, Expires: 01/14/2025Start: 10-15-2024 End: 38-54-4774Yzvwkklhfnndn metabolic 2000 panel - Serum or PlasmaCOMPREHENSIVE METABOLIC PANEL Lab Routine Iron deficiency anemia, unspecified iron deficiency anemia type Anemia of chronic renal failure, unspecified CKD stage Expected: 10/15/2024, Expires: 01/14/2025[place] ClinicComment on above:Expected: 10/15/2024, Expires: 01/14/2025Start: 10-15-2024 End: 86-71-5777Sngqjzzv [Mass/volume] in Serum or PlasmaFERRITIN Lab Routine Iron deficiency anemia, unspecified iron deficiency anemia type Anemia of chron ic renal failure, unspecified CKD stage Expected: 10/15/2024, Expires: 01/14/2025[place] ClinicComment on above:Expected: 10/15/2024, Expires: 01/14/2025Start: 10-15-2024 End: 00-40-7481Dpgw and Iron binding capacity panel - Serum or PlasmaIRON AND TIBC Lab Routine Iron deficiency anemia, unspecified iron deficiency anemia type Anemia ofchronic renal failure, unspecified CKD stage Expected: 10/15/2024, Expires: 5[place] ClinicComment on above:Expected: 10/15/2024, Expires: 01/14/2025Start: 10-15-2024 End: 47-65-8705NTJXLRMEVMDI COUNTRETICULOCYTE COUNT Lab Routine Iron deficiency anemia, unspecified iron deficiency anemia type Anemia of chronic renal failure, unspecified CKD stage Expected: 10/15/2024, Expires: 5[facility] Comment on above:Expected: 10/15/2024, Expires: 01/14/2025Start: 10-07-2024 End: 20-74-3845Czcazv-up aavgbfuap41/22/2024 2:30 PM EST Visit (SP) Office Hematology/Oncology [address] [place] [address] [address] [place], [place] [phone] Daksha Bridges PA-C [address] [place] [address] 3 month follow up with labHematology/OncologyComment on above:3 month follow up with labStart: 10-07-2024 End: 43-09-9604Rcwkemb encounter myqdygrue91/22/2024 2:15 PM EST Office Visit [facility] [address] [place] [address] [place] [address] 3 month follow up with labNortHolland Hospital LaboratoryComment on above:3 month follow up with labStart: 08-16-2024 End: 87-68-5228Qlcbmvm event monitorCardiac event monitor Cardiac Services Routine Transient ischemic attack Palpitations Expected: 08/16/2024 (Approximate), Expires: 08/16/2026[facility] Work Phone: comment on above:Expected: 08/16/2024 (Approximate), Expires: 08/16/2026Start: 08-16-2024 End: 89-09-2311Thcekrl encounter ucqcruscw03/01/2024 9:00 AM EDT Office Visit [address] [place] [address] Conner Queta C, HOLE DIGGER OPERATOR [address] [place] [address] ArrivedNOMD [place] [facility] ROUTEComment on above:ArrivedStart: 57-95-4407Gfqupuzsahffj metabolic 2000 panel - Serum or PlasmaMarymount Hospitaltart: 07-22-2024 End: 33-54-6353EisbxbretDelaware County Hospital CenterStart: 01-44-4409Wgeroqeifms of acetylcholine receptor antibodyMarymount Hospitaltart: 85-13-4099IckgdzykyMarymount Hospitaltart: 51-67-1695Yovezni ultrasonography of bilateral carotid arteriesUS carotid doppler [facility]: 13-47-1009PM Brain WO contrastMarymount Hospitaltart: 55-49-4117LLL of headMR head/brain wo [facility] CenterStart: 62-81-0339XO.doppler Carotid arteries - bilateralMarymount Hospitaltart: 64-22-7362Ppgkwvab therapy procedureMarymount Hospitaltart: 98-45-6451Luefflcj to neurologistMarymount Hospitaltart: 58-67-6902Apbrlbhv to occupational therapist [facility]: 33-41-4824Lhjjdhck to speech and language therapy serviceMarymount Hospitaltart: 07-21-2024 [facility] CenterStart: 91-91-1681Eddymvoa admissionMarymount Hospitaltart: 96-27-2740Dyzdy-19 Vaccine ( season) Covid-19 Vaccine ( season)[facility]: 20-68-4173Hzwqw-19 Vaccine ( season)Covid-19 Vaccine ( season)[facility]: 89-75-9570Vkbsdsejn vaccinationInfluenza Vaccine (#1)[facility]: 07-15-2024 End: 20-33-7101Refjdt-up yncwifrdd13/30/2024 2:30 PM EDT Visit (SP) Office Hematology/Oncology [address] [place], [place] [phone] Daksha Bridges PA-C [address] [place] [address] 3 month follow up with labHematology/OncologyComment on above:3 month follow up with labStart: 07-15-2024 End: 02-93-4385Gitqeie encounter sguqidosn53/30/2024 2:15 PM EDT Office Visit [facility] [address] [place] [address] 3 month follow up with labNortHolland Hospital LaboratoryComment on above:3 month follow up with labStart: 07-11-2024 End: 03-93-7198YOV W Auto Differential panel - BloodCOMPLETE BLOOD COUNT AND DIFFERENTIAL Lab Routine Iron deficiency anemia, unspecified iron deficiency anemia type Anemia of chronic renal failure, unspecified CKD stage Thrombocytopenia (HCC) Expected: 07/11/2024 (Approximate), Expires: 10/10/2024 [facility] Work Phone: Comment on above:Expected: 07/11/2024 (Approximate), Expires: 10/10/2024Start: 07-11-2024 End: 90-78-9135Mlqpzunjoaomv metabolic 2000 panel - Serum or PlasmaCOMPREHENSIVE METABOLIC PANEL Lab Routine Iron deficiency anemia, unspecified iron deficiency anemia type Anemia of chronic renal failure, unspecified CKD stage Thrombocytopenia (HCC) Expected: 07/11/2024 (Approximate), Expires: 10/10/2024 [facility]Comment [facility]:Expected: 07/11/2024 (Approximate), Expires: 10/10/2024Start: 07-11-2024 End: 09-86-2902Rsutuawr [Mass/volume] in Serum or PlasmaFERRITIN Lab Routine Iron deficiency anemia, unspecified iron deficiency anemia type Anemia of chron ic renal failure, unspecified CKD stage Thrombocytopenia (HCC) Expected: 07/11/2024 (Approximate), Expires: 10/10/2024[place] ClinicComment on above: Expected: 07/11/2024 (Approximate), Expires: 10/10/2024Start: 07-11-2024 End: 10-12-3567Vtcy and Iron binding capacity panel - Serum or PlasmaIRON AND TIBC Lab Routine Iron deficiency anemia, unspecified iron deficiency anemia type Anemia ofchronic renal failure, unspecified CKD stage Thrombocytopenia (HCC) Expected: 07/11/2024 (Approximate), Expires: 10/10/2024[facility] ClinicComment on above:Expected: 07/11/2024 (Approximate), Expires: 10/10/2024Start: 07-11-2024 End: 14-22-5887DVBLDHFEYWJH COUNTRETICULOCYTE COUNT Lab Routine Iron deficiency anemia, unspecified iron deficiency anemia type Anemia of chronic renal failure, unspecified CKD stage Thrombocytopenia (HCC) Expected: 07/11/2024 (Appro ximate), Expires: 10/10/2024[facility] ClinicComment on above:Expected: 07/11/2024 (Approximate), Expires: 10/10/2024Start: 04-30-2024 End: 80-84-4900ITE W Auto Differential panel - BloodCBC + DIFF Lab Routine Stage 3b chronic kidney disease (HCC) Iron deficiency anemia secondary to inadequate dietary iron intake Expected: 04/30/2024 (Approximate), Expires: 07/30/2024 [facility] Work Phone: Comment on above:Expected: 04/30/2024 (Approximate), Expires: 07/30/2024Start: 04-30-2024 End: 40-47-0806Sllnyzyytfrzu metabolic 2000 panel - Serum or PlasmaCOMP METABOLIC PANEL Lab Routine Stage 3b chronic kidney disease (HCC) Iron deficiency anemia secondary to inadequate dietary iron intake Expected: 04/30/2024 (Approximate), Expires: 07/30/2024[facility] Work Phone: Comment on above:Expected: 04/30/2024 (Approximate), Expires: 07/30/2024Start: 04-30-2024 End: 52-89-7076Iynwdaom [Mass/volume] in Serum or PlasmaFERRITIN BLD Lab Routine Stage 3b chronic kidney disease (HCC) Iron deficiency anemia secondary to i nadequate dietary iron intake Expected: 04/30/2024 (Approximate), Expires: 07/30/2024[facility] Work Phone: Comment on above:Expected: 04/30/2024 (Approximate), Expires: 07/30/2024Start: 04-30-2024 End: 17-66-5939Fuxq and Iron binding capacity panel - Serum or PlasmaIRON + TIBC Lab Routine Stage 3b chronic kidney disease (HCC) Iron deficiency anemia secondary to inadequate dietary iron intake Expected: 04/30/2024 (Approximate), Expires: 07/30/2024[facility] Work Phone: Comment on above:Expected: 04/30/2024 (Approximate), Expires: 07/30/2024Start: 32-91-5314Sbcdkqq Directive DiscussionAdvance Directive DiscussionMartins Ferry Hospitaltart: 12-51-4361Fkhgptpbny Health Screening Behavioral Health ScreeningMartins Ferry Hospitaltart: 15-47-2596Wqeffwsyse AssessmentDepression AssessmentMartins Ferry Hospitaltart: 08-01-2023 End: 91-95-6798PXJ W Auto Differential panel - BloodCBC + DIFF Lab Routine Iron deficiency anemia secondary to inadequate dietary iron intake Expected: 08/01/2023 (Approximate), Expires: 10/01/2023[facility] Work Phone: Comment on above:Expected: 08/01/2023 (Approximate), Expires: 10/01/2023Start: 08-01-2023 End: 77-94-3988Fkwqudidjlqqr metabolic 2000 panel - Serum or PlasmaCOMP METABOLIC PANEL Lab Routine Iron deficiency anemia secondary to inadequate dietary iron intakeExpected: 08/01/2023 (Approximate), Expires: 10/01/2023 [facility] Work Phone: Comment on above:Expected: 08/01/2023 (Approximate), Expires: 10/01/2023Start: 08-01-2023 End: 73-40-4953Gxixybnm [Mass/volume] in Serum or PlasmaFERRITIN BLD Lab Routine Iron deficiency anemia secondary to inadequate dietary iron intake Expected: 08/01/2023 (Approximate), Expires: 10/01/2023[facility] Work Phone: Comment on above:Expected: 08/01/2023 (Approximate), Expires: 10/01/2023Start: 08-01-2023 End: 37-20-7941Rwjs and Iron binding capacity panel - Serum or PlasmaIRON + TIBC Lab Routine Iron deficiency anemia secondary to inadequate dietary iron intake Expected: 08/01/2023 (Approximate), Expires: 10/01/2023[facility] Work Phone: Comment on above:Expected: 08/01/2023 (Approximate), Expires: 10/01/2023Start: 07-24-2023 End: 32-04-3273MMM W Auto Differential panel - BloodCBC + DIFF Lab Routine Iron deficiency anemia secondary to inadequate dietary iron intake Stage 3b chronic kidney disease (HCC) Expected: 07/24/2023, Expires: 09/23/2023[facility] Work Phone: Comment on above:Expected: 07/24/2023, Expires: 09/23/2023Start: 07-24-2023 End: 98-98-5174Fmdqjhhxzmmzk metabolic 2000 panel - Serum or PlasmaCOMP METABOLIC PANEL Lab Routine Iron deficiency anemia secondary to inadequate dietary iron intakeStage 3b chronic kidney disease (HCC) Expected: 07/24/2023, Expires: 09/23/2023[facility] Work Phone: Comment on above:Expected: 07/24/2023, Expires: 09/23/2023Start: 07-24-2023 End: 25-00-7761Gexmcmai [Mass/volume] in Serum or PlasmaFERRITIN BLD Lab Routine Iron deficiency anemia secondary to inadequate dietary iron intake Stage 3b chronic kidney disease (HCC) Expected: 07/24/2023, Expires: 09/23/2023[facility] Work Phone: Comment on above:Expected: 07/24/2023, Expires: 09/23/2023Start: 07-24-2023 End: 99-39-1120Duvm and Iron binding capacity panel - Serum or PlasmaIRON + TIBC Lab Routine Iron deficiency anemia secondary to inadequate dietary iron intake Stage 3bchronic kidney disease (HCC) Expected: 07/24/2023, Expires: 09/23/2023 [facility] Work Phone: Comment on above:Expected: 07/24/2023, Expires: 09/23/2023Start: 77-50-7720Hefcf-19 Vaccine ()Covid-19 Vaccine ()[facility]: 53-35-9845Yudaefcfm vaccination [facility]: 05-09-2023 End: 62-75-4055QTN W Auto Differential panel - BloodCBC + DIFF Lab Routine Iron deficiency anemia secondary to inadequate dietary iron intake Expected: 05/09/2023 (Approximate), Expires: 07/09/2023[facility] Work Phone: Comment on above:Expected: 05/09/2023 (Approximate), Expires: 07/09/2023Start: 05-09-2023 End: 31-15-6636Wcrdlnwsxuutw metabolic 2000 panel - Serum or PlasmaCOMP METABOLIC PANEL Lab Routine Iron deficiency anemia secondary to inadequate dietary iron intakeExpected: 05/09/2023 (Approximate), Expires: 07/09/2023 [facility] Work Phone: Comment on above:Expected: 05/09/2023 (Approximate), Expires: 07/09/2023Start: 05-09-2023 End: 87-71-5112Bjgbcxgw [Mass/volume] in Serum or PlasmaFERRITIN BLD Lab Routine Iron deficiency anemia secondary to inadequate dietary iron intake Expected: 05/09/2023 (Approximate), Expires: 07/09/2023[facility] Work Phone: Comment on above:Expected: 05/09/2023 (Approximate), Expires: 07/09/2023Start: 05-09-2023 End: 45-00-8411Kxyl and Iron binding capacity panel - Serum or PlasmaIRON + TIBC Lab Routine Iron deficiency anemia secondary to inadequate dietary iron intake Expected: 05/09/2023 (Approximate), Expires: 07/09/2023[facility] Work Phone: Comment on above:Expected: 05/09/2023 (Approximate), Expires: 07/09/2023Start: 38-44-7579EhlmubfajMarymount Hospitaltart: 71-69-6473Bgibzvew therapy procedureMarymount Hospitaltart: 37-82-1319Edkvilvs admissionMarymount Hospitaltart: 03-11-2023 Referral to neurologistMarymount Hospitaltart: 02-09-2023 End: 00-99-2373KND W Auto Differential panel - BloodCBC + DIFF Lab Routine Iron deficiency anemia secondary to inadequate dietary iron intake Expected: 02/09/2023 (Approximate), Expires: 04/11/2023[facility] Work Phone: Comment on above:Expected: 02/09/2023 (Approximate), Expires: 04/11/2023Start: 02-09-2023 End: 25-06-8498Gjigikptfcypy metabolic 2000 panel - Serum or PlasmaCOMP METABOLIC PANEL Lab Routine Iron deficiency anemia secondary to inadequate dietary iron intakeExpected: 02/09/2023 (Approximate), Expires: 04/11/2023 [facility] Work Phone: Comment on above:Expected: 02/09/2023 (Approximate), Expires: 04/11/2023Start: 02-09-2023 End: 42-29-7864Addeodyr [Mass/volume] in Serum or PlasmaFERRITIN BLD Lab Routine Iron deficiency anemia secondary to inadequate dietary iron intake Expected: 02/09/2023 (Approximate), Expires: 04/11/2023[facility] Work Phone: Comment on above:Expected: 02/09/2023 (Approximate), Expires: 04/11/2023Start: 02-09-2023 End: 95-26-0531Caas and Iron binding capacity panel - Serum or PlasmaIRON + TIBC Lab Routine Iron deficiency anemia secondary to inadequate dietary iron intake Expected: 02/09/2023 (Approximate), Expires: 04/11/2023[facility] Work Phone: Comment on above:Expected: 02/09/2023 (Approximate), Expires: 04/11/2023Start: 02-06-2023 End: 60-23-1714FXW W Auto Differential panel - BloodCBC + DIFF Lab Routine Iron deficiency anemia secondary to inadequate dietary iron intake Expected: 02/06/2023, Expires: 04/08/2023[facility] Work Phone: Comment on above:Expected: 02/06/2023, Expires: 04/08/2023Start: 02-06-2023 End: 26-07-9070Pflbewkihgleq metabolic 2000 panel - Serum or PlasmaCOMP METABOLIC PANEL Lab Routine Iron deficiency anemia secondary to inadequate dietary iron intakeExpected: 02/06/2023, Expires: 04/08/2023[facility] Work Phone: Comment on above:Expected: 02/06/2023, Expires: 04/08/2023Start: 02-06-2023 End: 65-68-0743Skrb and Iron binding capacity panel - Serum or PlasmaIRON + TIBC Lab Routine Iron deficiency anemia secondary to inadequate dietary iron intake Expected: 02/06/2023, Expires: 04/08/2023[facility] Work Phone: Comment on above:Expected: 02/06/2023, Expires: 04/08/2023Start: 63-12-2920ZjlscwyycMarymount Hospitaltart: 11-27-2022 End: 80-56-5632GKD W Auto Differential panel - BloodCBC + DIFF Lab Routine Anemia, unspecified type Iron deficiency anemia secondary to inadequate dietary iron intake Expected: 11/27/2022, Expires: 01/27/2023[facility] Work Phone: Comment on above:Expected: 11/27/2022, Expires: 01/27/2023Start: 11-27-2022 End: 65-18-9873Suywicigbyzvr metabolic 2000 panel - Serum or PlasmaCOMP METABOLIC PANEL Lab Routine Anemia, unspecified type Iron deficiency anemia secondary to inadequate dietary iron intake Expected: 11/27/2022, Expires: 01/27/2023[facility] Work Phone: Comment on above:Expected: 11/27/2022, Expires: 01/27/2023Start: 11-27-2022 End: 12-89-0594Faneqgsv [Mass/volume] in Serum or PlasmaFERRITIN BLD Lab Routine Anemia, unspecified type Iron deficiency anemia secondary to inadequate dietary iron intake Expected: 11/27/2022, Expires: 01/27/2023[facility] Work Phone: Comment on above:Expected: 11/27/2022, Expires: 01/27/2023Start: 11-27-2022 End: 32-13-5723Nnhn and Iron binding capacity panel - Serum or PlasmaIRON + TIBC Lab Routine Anemia, unspecified type Iron deficiency anemia secondary to inadequate dietary iron intake Expected: 11/27/2022, Expires: 01/27/2023 [facility] Work Phone: Comment on above:Expected: 11/27/2022, Expires: 01/27/2023Start: 26-37-9679YGXCLNQ DIRECTIVE DISCUSSIONADVANCE DIRECTIVE DISCUSSIONMartins Ferry Hospitaltart: 06-44-4544BYBMGWIOCM ASSESSMENTDEPRESSION ASSESSMENTMartins Ferry Hospitaltart: 10-29-2022 End: 83-35-2482RADQUBPKQM PROTEIN, SERUM (BLOOD)MONOCLONAL PROTEIN, SERUM (BLOOD) Lab Routine Anemia, unspecified type Expected: 10/29/2022 (Approximate), Expires: 12/29/2022[facility] Work Phone: Comment on above:Expected: 10/29/2022 (Approximate), Expires: 12/29/2022Start: 10-29-2022 End: 36-81-1188YXRLDXZ ELECTROPHORESIS SERUM W/INTERPPROTEIN ELECTROPHORESIS SERUM W/INTERP Lab Routine Anemia, unspecified type Expected: 10/29/2022 (Ap proximate), Expires: 12/29/2022[facility] Work Phone: Comment on above:Expected: 10/29/2022 (Approximate), Expires: 12/29/2022Start: 10-01-2022 End: 09-43-4896Ccoiuiycm (Vitamin B12) [Mass/volume] in Serum or [facility] Work Phone: Comment on above:Expected: 10/01/2022, Expires: 12/01/2022Start: 10-01-2022 End: 96-83-4293Uqpltykf [Mass/volume] in Serum or [facility] Work Phone: Comthrg on above:Expected: 10/01/2022, Expires: 10/01/2023Start: 10-01-2022 End: 84-50-8674Okbvnp [Mass/volume] in Serum or [facility] Work Phone: Comment on above:Expected: 10/01/2022, Expires: 12/01/2022Start: 10-01-2022 End: 38-74-2753Yfaw and Iron binding capacity panel - [facility] or [facility] Work Phone: Comphbr on above:Expected: 10/01/2022, Expires: 10/01/2023Start: 10-01-2022 End: 26-55-6500CRUXWFI ELECT RND UR W/INTERPCSumma Health Work Phone: Comment on above:Expected: 10/01/2022, Expires: 12/01/2022Start: 10-01-2022 End: 12-46-4142Dsvw [Mass/volume] in Serum or [facility] Work Phone: Comlkhi on above:Expected: 10/01/2022, Expires: 12/01/2022Start: 13-32-9331Lluhbfyrg vaccinationINFLUENZA (#1)[facility] Start: 83-97-1221ITKKVYN DIRECTIVE DISCUSSIONADVANCE DIRECTIVE DISCUSSION [facility]: 50-95-1069ZVAXARRZPK ASSESSMENTDEPRESSION ASSESSMENT [facility]: 66-99-6696HQVGF-19 VACCINE (4 - Booster for Pfizer series)COVID-19 VACCINE (4 - Booster for Pfizer series)[facility]: 82-32-4877JWJJL-19 VACCINE (4 - Pfizer series)COVID-19 VACCINE (4 - Pfizer series)[facility]: 86-22-4205Rjegovqyztrf Vaccine: 50+ (2 of 2 - PCV) Pneumococcal Vaccine: 50+ (2 of 2 - PCV)[facility]: 08-16-2019 Pneumococcal Vaccine: 65+ (2 - PCV)Pneumococcal Vaccine: 65+ (2 - PCV)[facility]: 02-53-8317Xyeuiedljeyt Vaccine: 65+ (2 of 2 - PCV)Pneumococcal Vaccine: 65+ (2 of 2 - PCV)[facility]: 55-43-9740Qpjiqodrtsqz Vaccine: 65+ Years (2 of 2 - PCV)Pneumococcal Vaccine: 65+ Years (2 of 2 - PCV) [facility]: 97-19-6365SPTGJKCQEXSX: 65+ (2 - PCV)PNEUMOCOCCAL: 65+ (2 - PCV)[facility]: 87-66-2292MQQC DENSITYBONE DENSITYSalem Regional Medical Center Start: 85-71-9659Csit Density ScreeningBone Density ScreeningSalem Regional Medical Center Start: 16-60-7253IYJNEPWBESKX: 65+ (1 - PCV)PNEUMOCOCCAL: 65+ (1 - PCV)[facility]: 06-99-1897Cmrttikdx for osteoporosisBone Density Screening [facility]: 88-95-0726DBW Vaccine (1 - 1-dose 60+ series)RSV Vaccine (1 - 1-dose 60+ series)[facility]: 97-20-5222TXPCLCMO VACCINE (1 of 2)SHINGRIX VACCINE (1 of 2)[facility]: 17-16-1204NMDQEBZCX (FIT-DNA) COLOGUARD (FIT-DNA)[facility]: 57-67-8122MgrorjudpqsVKAEOCICUNV [facility]: 46-69-8127IIPLLPBEAQ CANCER SCREENINGCOLORECTAL CANCER SCREENINGMartins Ferry Hospitaltart: 45-41-1478LF COLONOGRAPHYCT COLONOGRAPHY [facility]: 44-85-5587MDJMIWJT SCREENDIABETES SCREENSalem Regional Medical Center Start: 99-75-8529TLQVZ OCCULT BLOODFECAL OCCULT BLOODMartins Ferry Hospitaltart: 05-16-3969Xamqk 1996 panel - Serum or PlasmaLipid ScreeningSalem Regional Medical Center Start: 73-03-3335Kdhco panelLipid ScreeningMartins Ferry Hospitaltart: 1993 LIPID SCREENLIPID SCREENMartins Ferry Hospitaltart: 68-57-5319Pqsucsppc for malignant neoplasm of colonMartins Ferry Hospitaltart: 27-98-1186OUCZYSXBQKSGAFSFQPZQIJLSPK [facility]: 52-41-3583PdrjfufgwpjTjbntrixb ClinicStart: 1967 Urine microalbumin profileMartins Ferry Hospitaltart: 67-85-1204Wrswg screening for proteinDiabetes: Urine Protein ScreeningMid [facility] Mental Health CenterStart: 44-10-9638Hjwosf PCP Team Chronic Disease VisitAnnual PCP Team Chronic Disease VisitMartins Ferry Hospitaltart: 14-00-3985Dihluoa ScreeningAnxiety ScreeningMartins Ferry Hospitaltart: 62-38-7719Efutfndati ScreeningDepression ScreeningMartins Ferry Hospitaltart: 64-55-4637WIMMMZWLF C SCREENINGHEPATITIS C SCREENINGMartins Ferry Hospitaltart: 35-96-5842Xjwfvjvse C screeningHepatitis C ScreeningMartins Ferry Hospitaltart: 59-53-2606Qliqqgka screeningDiabetes: Retinopathy ScreeningMid [facility] CenterStart: 28-16-5233RQPLN-19 VACCINE (#1)COVID-19 VACCINE (#1)[facility]: 71-65-7009Phgarinyaw A1c measurementDiabetes: Hemoglobin Q5OZUYBMid [facility] Mental Health Center Start: 98-90-0209Kyycqsdjz for malignant neoplasm of colonMid [facility] Acetylcholine receptor blocking Ab/Acetylcholine Ab.total in SerumMedina HospitalBacteria identified in Urine by CultureMedina HospitalMONOCLONAL PROTEIN, SERUM (BLOOD)MONOCLONAL PROTEIN, SERUM (BLOOD) Lab Routine Anemia, unspecified type 10/01/2022 12:19 PM [facility] Work Phone: Muscle specific receptor tyrosine kinase Ab [Units/volume] in Serum by ImmunoassayMedina HospitalPatient EducationDelaware County Hospital Ctr Work Phone: Patient referralDelaware County Hospital Ctr Work Phone: PROTEIN ELECTROPHORESIS SERUM W/INTERPPROTEIN ELECTROPHORESIS SERUM W/INTERP Lab Routine Anemia, unspecified type 10/01/2022 12:19 PM [facility] Work Phone: Renal function 1999 panel - Serum or PlasmaMedina HospitalRenal function 1999 panel - Serum or [facility] DaytonRenal function 1999 panel - Serum or [facility] DaytonRenal function 1999 panel - Serum or [facility] DaytonUS Kidney - bilateralMedina Hospital Varicella zoster virus DNA [Presence] in Cerebral spinal fluid by DIPESH with probe detectionSummit Medical Center Immunizations Immunization DateImmunizationNotesCare MfqlefuxHerotjtl35-70-6826dqwqwgaeg virus vaccine, unspecified formulationVerónica Ugarte [phone]-YomnvPike Community Hospital Qoxvku26-84-6849 influenza (HD-IIV4) vaccine, age 65+ yr, high dose, quadrivalent, PF (FLUZONE HIGH-DOSE)Daksha Bridges PA-C Work Phone: [facility] Medical CenterYkcbun75-61-4243qrwrzztip virus vaccine, unspecified formulationNisa Shepherd [phone]-PwqfbOur [facility] Ulpbkt56-16-9558 influenza virus vaccine, unspecified formulationNisa Shepherd [phone]-NdtphPike Community Hospital Shrqsd33-23-5947 influenza, high-dose, quadrivalent vaccine (FLUZONE HIGH DOSE QUADRIVALENT)Henry Walker MD Work Phone: [facility] CenterSgxecu20-72-5103fllqkxvcp virus vaccine, unspecified formulationNisa Shepherd [phone]-BifjpMercy Health St. [facility]11-11-2021 influenza, high-dose, quadrivalent vaccine (FLUZONE HIGH DOSE QUADRIVALENT)Henry Walker MD Work Phone: [facility] Medical CenterUlngfs10-12-1672IGCQ-RhK-9 (COVID-19) mRNA BNT-162b2 Yoan Shepherd [phone]-OidunPike Community Hospital HealthComment on above:Result Comment: 2022-09-18: HEE7921-31-9185TZZY-TkI-7 (COVID-19) mRNA BNT- 162b2 Yoan Ruth 756-3725Ppwmbe-CyymmMercy Health St. [facility]03-01-2021 SARS-CoV-2 (COVID-19) mRNA BNT-162b2 Yoan Chatmanmetz 387-4244Ixgbqs-GbahkMercy Health St. Charles Hospital10-01-2018 influenza nasal, unspecified formulationHenry Walker MD Work Phone: [facility] CenterWzyfqz20-12-5920hfvputpxn virus vaccine, unspecified formulationNisa Shepherd [phone]-TdxouMercy Health St. Charles Hospital10-01-2018 influenza, injectable, quadrivalent, preservative freeDaksha Bridges PA-C Work Phone: [facility] CenterPnjqpe20-73-3301sxtarjbldndd polysaccharide vaccine, 23 valentBemesha Shepherd 079-9738Mhpzpp-JbhocMercy Health St. Charles Hospital11-03-2016 influenza virus vaccine, unspecified formulationNisa Shepherd 081-6978Spysah-YsyeuMercy Health St. Charles Hospital11-03-2016 influenza, high dose seasonal, preservative-freeHenry Walker MD Work Phone: [facility] CenterLtatqc91-93-6624pglxtymqd virus vaccine, unspecified formulationNisa Shepherd 853-4084Vvagec-HckirPike Community Hospital Zuypmb33-83-7195 influenza, seasonal, Shamika Walker MD Work Phone: [facility] Payers DatePayer CategoryPayerPolicy [id number]-epq [id number] [id number] 2024Medicare (Managed Care)[facility] [id number] Health InsuranceCAPE FEAR VALLEY MEDICAL CENTERO Member Subscriber Plan / Payer (Effective 2023-Present) Name: Anh Tejeda Member ID: [id number] Relation to Subscriber: Self Name: Anh Tejeda Subscriber ID: [id number] Payer ID: Not on file Group ID: Not on file Type: HMO Address: [address] [place] [id number] 2024Medicare [id number] [id number] 2.16.840.1.099284.3.57[id number] 2.16.840.1.562546.3.57[id number] 2.16.840.1.216692.3.579.2.79437-03-3248Jbyyjby1752108 2.16.840.1.852978.3.579.2.20607-58-3947Mzyftrm5912828 2.16.840.1.151914.3.579.2.89461-05-4044Kjknsne9370112 2.16.840.1.430865.3.579.[id number] 2.16.840.1.579212.3.57[id number] 2.16.840.1.804283.3.579.2.19147-11-6878Wcbuswb09151022 2.16.840.1.737190.3.579.2.02074-91-0163Mrvasfv08154415 2.16.840.1.730871.3.579.[id number] 2.16.840.1.561256.3.579.2.[id number] 2.16.840.1.674488.3.579.2.[id number] 2.16.840.1.930575.3.579.2.2[id number] 2..1.793755.3.579.[id number] 2..1.090517.3.579.2.950441-57-4842Ngewfbv7263923 2..1.642313.3.579.2.386591-01-2738Kwjbplt6284448 2..1.672995.3.579.2.641407-09-9102Oeojyyn0122880 2..1.640029.3.579.2.271084-11-4114Uaeheot4969714 2..1.607407.3.579.2.800335-33-4965Giagjex21094302 2..1.195901.3.579.[id number] 2..1.70[id number]/HFA/FAP [id number]-mzdu0h0g0p38Sqltbmb79561209 2..1.248956.3.579.2.813Dgowxsu50167064 2..1.519915.3.579.2.531 Swbmnyy40455433 2..1.358401.3.579.2.724Ihtozfd93022091 2.16.840.1.825693.3.579.2.273Ufqievc86684958 2.16.840.1.445684.3.579.2.531 Fsyaagv76030926 2.16.840.1.262319.3.579.2.955Fbwvqsa74424482 2.16.840.1.875701.3.579.2.916Lpyqsir75521915 2.16.840.1.867789.3.579.2.531 Bvrswpd72231082 2.16.840.1.933796.3.579.2.531 Social History DateTypeDetailFacilityStart: 12-26-2017 End: 40-77-4921Umurezv smoking status NHISNever smoked tobacco (finding) [facility]trStart: 67-09-3041Xne Assigned At [facility] Val[facility]eFeCleveland Clinic Children[facility] for RehabilitationTobacco smoking statusNeverOur [facility] Start: 05-01-2023 End: 04-40-1710Ibv Assigned At [facility] Start: 09-26-2022 End: 60-58-5293Ajvdmjg use and exposureSmokeless tobacco non-userMartins Ferry Hospitaltart: 10-97-2354Dkgmcnl intakeEx-drinker (finding)[facility]: 97-00-5175Kod Assigned At BirthNot on fileSalem Regional Medical CenterHistory of tobacco use Passive smokerMartins Ferry Hospitaltart: 10-01-2022 End: 98-12-9508Rlsirpl intakeLifetime non-drinker (finding)[facility] Start: 09-21-2022 End: 68-59-7394Alopiolc to SARS-CoV-2 (event)Not sureMartins Ferry Hospitaltart: 05-01-2023 End: 90-63-9774Dvjxdrt of Social functionMartins Ferry Hospitaltart: 03-29-2024 End: 77-30-8800Qmpraqaow beverage intakeDeferNOMD HealthcareStart: 02-09-2024 Alcohol Commentcaffeine intake: 1-2 cups per dayNOMD HealthcareStart: 01-11-2024 Gender identityIdentifies as female gender (finding)[facility] HealthcareStart: 77-32-6090Epmhcr orientationChoose not to discloseNOMD HealthcareStart: 01-19-2022 End: 71-08-9757LatYeznjs (finding)[facility] Hospitalexual OrientationPremier Health [facility] Goals DatePatient GoalDesired Activity/State Functional Status KqifKvexbxqmkeVppfxdSgsvzxvo97-51-4670Mzzpkljwlu StatusN/[facility] Digestive Cflxau97-38-3943Ojkxfdgpwg StatusN/[facility] Digestive Xmzgyh58-81-5818Cpuvcaiokk statusPatient at BaselineAdena [facility] Work Phone: 1([phone] 616-424309852914-04-3035Atmjdgcoeu statusPatient at Baseline [facility] Work Phone: 1(515) [phone]pzhlxzrlx StatusN/[facility] Digestive Eahrgy46-45-8870Zkrzijlcfa StatusN/[facility] Digestive Vmiuuk22-25-8060Gkrlqyjlkm StatusN/[facility] Digestive Ropeec77-69-1501Ikpvrsbcyh statusPatient at BaselineAdena [facility] Center Work Phone: [phone]bajnecsxm statusDisability Status Patient at BaselineAden[facility] Work Phone: 1(272) 123-993302188763-12-3037Wdjuqkaimk StatusN/[facility] Digestive Rjrpmc17-42-8757Efrvhbeiue StatusNoPremier Health [facility]07-28-2022Functional StatusN/[facility] Mental Status EhefExdhoxrergAfilhpRtyivrdt11-78-5331Ehwutkgnj functionCognitive Status Patient at BaselineAden[facility] Work Phone: 1([phone] 199-454209-052715-00-4198Gnqfctprn functionCognitive Status Patient at BaselineAdena [facility] Work Phone: 1(501) 485-135604-693940-65-7799Yldjvgfva functionCognitive Status Patient at BaselineDelaware County Hospital Ctr Work Phone: Clinical Notes 06-12-2022 to 08-07-2025 Note Date & ZirnWygjKwekaind99-31-0652 NoteHNO ID: [id number] Author: DAKSHA BRIDGES PA-C Service: ? Author Type: Physician Creative Services Writer Type: Progress Notes Filed: 08/07/2025 10:50 Note Text: Hematology Progress Note PATIENT NAME: Anh Tejeda CLINIC NO.: [id number] ATTENDING PHYSICIAN: Henry Walker MD DATE OF [...] 5.85 3.70 - 11. (more content not included)...[facility]08-20-2025 Evaluation note* Diagnosis Onset Date Resolution Status Admit Date Anemia of renal disease acuteJuly 05, 2025 9:42amChronic kidney disease, stage III (moderate)acute July 05, 2025 9:42amHyperlipidemiaacuteAugust 2024 9:42am HypomagnesemiaacuteAugust 2024 9:42amSecondary hyperparathyroidismacute July 05, 2025 9:42amType 2 diabetes mellitus with diabetic chronic kidney diseaseacuteAugus2024 9:42amHypertensive chronic kidney disease with stage 1 through stage 4 chronic kichronicAugust 2024 9:42am [facility] Work Phone: 1([phone] 981-243608-20-2025 Evaluation note* Diagnosis Onset Date Resolution Status [...] acuteSept2024 9:10amLacunar infarctionacuteSept2024 9:10am PolyneuropathyacuteSept2024 9:10amSyncopeacuteSept2024 9:10am [facility] Work Phone: [phone] 662-824307-23-2025 History of Present illness Narrative* Jenny Watson [...] family situations. Patient indicated understanding. I did social services counselor the patient and her brother on processing and getting patient's attention before talking to her. She will continue as needed. Cosigned by BETH Hodgson at 06/08/2025 11:43 AM EDT documented in this encounterMid Missouri Mental Health CenterVyubveyped47-12-4752 History of Present illness Narrative* Daksha Bridges PA-C - 04/25/2025 11:00 AM EDT Hematology Progress Note PATIENT NAME: Anh Tejeda [facility] NO.: [id number] ATTENDING PHYSICIAN: Henry Walker MD DATE OF [...] Range Status 04/18/2025 6.4 % Final Abs Hidalgo Date Value Ref Range Status 04/18/2025 0.36 [...] monitoring of renal function. - Follow-up with charrer Dr. Giles in June. 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 Should this worsen, especially in the setting of anemia with normal iron stores, would need to consider further workup. Platelets bpn925 4. Polyneuropathy: negative SPEP/MPA in 2021. Some improvement with carpal tunnel repair. Return in 3 months with repeat labs Daksha Bridgse PA-C CC: Nisa Shepherd CNP I spent a total of 20 minutes on the date of the service which included preparing to see the patient, enza-ry-bwrh patient care, completing clinical documentation, performing a medically appropriate examination, counseling and educating the patient/family/caregiver, ordering medications, tests, or p rocedures, independently interpreting results (not separately reported), communicating results to the patient/family/caregiver, and care coordination (not separately reported). documented in this encounterSalem Regional Medical Center06-10-2025 NoteHNO ID: [id number] Author: DAKSHA BRIDGES PA-C Service: ? Author Type: Physician Creative Services Writer Type: Progress Notes Filed: 04/25/2025 11:19 Note Text: Hematology Progress Note PATIENT NAME: Anh Tejeda [facility] NO.: [id number] ATTENDING PHYSICIAN: Henry Walker MD DATE OF [...] (mmol/L) Date Value 04/18/20 (more content not included)...[facility]05-27-2025 Telephone encounter Note* Telephone Encounter - Stacey Estrada - 04/11/2025 9:59 AM EDT Spoke to Anh, labs 04/18 at 1130 and follow up 04/25 at 11am. [facility]05-27-2025 Miscellaneous Notes* Telephone Encounter - [...] below. Samantha Mcmahan RN documented in this encounterSalem Regional Medical Center05-27-2025 Telephone encounter Note * Telephone Encounter - Samantha Mcmahan RN - 04/11/2025 9:52 AM EDT Daksha wants labs in the next 1-2 weeks and follow up 1 week after they are drawn to review results. Samantha Mcmahan RN [facility]05-27-2025 Telephone encounter Note* Telephone Encounter - Stacey Estrada - 04/11/2025 9:47 AM EDT Patient is scheduled for 06/28 now, is that ok or does she need moved up? [facility]05-27-2025 Telephone encounter Note* Telephone Encounter - Samantha Mcmahan RN - 04/11/2025 9:15 AM EDT Pt aware and agreeable to plan of care. She denies questions, needs or concerns at this time. PSS: Please call to schedule labs /follow up per MM below. Samantha Mcmahan RN [facility]05-23-2025 NoteHNO ID: [id number] Author: DAKSHA BRIDGES PA-C Service: ? Author Type: Physician Creative Services Writer Type: Progress Notes Filed: 04/07/2025 14:52 Note Text: Hematology Progress Note PATIENT NAME: Anh [facility] NO.: [id number] ATTENDING PHYSICIAN: Henry Walker MD DATE OF [...] 1 General: Alert and (more content not included)...[facility] 03-06-2025 History of Present illness Narrative* KARO [...] is more in her thumbs -trouble with chief medical officer -Takes Gabapentin POLYNEUROPATHY -on Requip and Gabapentin [...] out -she had MRI L spine at [facility] in January -she admits numbness and [...] at the great toe bilaterally. Coordination Right: Lylhxd-vu-eptv normal. Rapid alternating movement normal.Left: Cwmwls-nw-idse normal. Rapid alternating movement normal. Gait Casual gait is normal including stance, stride, and arm swing. Ambulaters with a cane. Able to rise from the chair without usinh her arms. Motor Examination RUE Strength deltoid, biceps, triceps, wrist extensors, wrist extensors, wrist flexor, chief medical officer strength 5/5. LUE Strength deltoid, biceps, triceps, wrist extensors, wrist extensors, wrist flexor, chief medical officer strength 5/5. RLE Strength illopsoas, quadriceps, tibialis anterior, and gastrocnemius strength 5/5. LLE Strength illopsoas, quadriceps, tibialis anterior, and gastrocnemius strength 5/5. Tone Normal tone x4 extremities. Reflexes: RUE biceps reflex 2, brachioradialis reflex 2 LUE biceps reflex 2, brachioradialis reflex 2 RLE knee reflex 1 LLE knee reflex 1, Assessment and Plan 1. TIA - presented to [facility] on 07/21/2024 with [...] - R55 - Patient was seen at [facility] 03/11/2023 for syncopal [...] leak. She isfollowing with sleep specialist at [facility]. Evaluation at [facility] on 07/21/2024: 1. [...] up in 4 months documented in this encounterMid Missouri Mental Health CenterQsorvtxmez54-24-9886 Telephone encounter Note* Telephone Encounter - Samantha Mcmahan RN - 01/09/2025 9:11 AM EST Pt informed of MM message, once verified, using 2 patient identifiers. Patient denies any questions, needs or concerns at this time. Appointment verified. Samantha Mcmahan RN [facility]02-24-2025 Miscellaneous Notes* Telephone Encounter - Samantha Mcmahan RN - 01/09/2025 9:11 AM EST Pt informed of MM message, once verified, using 2 patient identifiers. Patient denies any questions, needs or concerns at this time. Appointment verified. Samantha Mcmahan RN documented in this encounterSalem Regional Medical Center02-21-2025 NoteHNO ID: [id number] Author: DAKSHA BRIDGES PA-C Service: ? Author Type: Physician Creative Services Writer Type: Progress Notes Filed: 01/06/2025 14:38 Note Text: Hematology Progress Note PATIENT NAME: Anh Tejeda [facility] NO.: [id number] ATTENDING PHYSICIAN: Henry Walker MD DATE OF [...] Sodium (mmol/L) Date Value (more content not included)...[facility]02-21-2025 History of Present illness Narrative* Daksha Bridges PA-C - 01/06/2025 2:18 PM EST Hematology Progress Note PATIENT NAME: Anh [facility] NO.: [id number] ATTENDING PHYSICIAN: Henry Walker MD DATE OF [...] Range Status 01/06/2025 5.9 % Final Abs Hidalgo Date Value Ref Range Status 01/06/2025 0.32 [...] which included preparing to see the patient, ooae-cv-jkeh patient care, completing clinical documentation, performing a medically appropriate examination, counseling and educating the patient/family/caregiver, ordering medications, tests, or p rocedures, independently interpreting results (not separately reported), communicating results to the patient/family/caregiver, and care coordination (not separately reported). documented in this encounterSalem Regional Medical Center02-17-2025 Telephone encounter Note * Telephone Encounter - Verenice Andres MA - 01/02/2025 2:52 PM EST Lab orders needed for upcoming appointment scheduled 01/06. Verenice Andres MA [facility]02-17-2025 Miscellaneous Notes* Telephone Encounter - Verenice Andres MA - 01/02/2025 2:52 PM EST Lab orders needed for upcoming appointment scheduled 01/06. Verenice Andres MA documented in this encounterSalem Regional Medical Center2024 Evaluation note* Diagnosis Onset Date Resolution Status Admit Date Essential (primary) hypertension acutecemb2023 12:57pmInsomniaacuteDecember 2023 12:57pm Obstructive sleep apneaacuteNovember 14, 2024 12:57pmRestless leg syndrome acuteNovember 14, 2024 12:57pmType 2 diabetes mellitus with diabetic chronic kidney diseaseacuteNovember 14, 2024 12:57pm [facility] Work Phone: [phone]) 531-352612-30-2024 Evaluation note* Diagnosis Onset Date Resolution Status [...] with diabetic chronic kidney diseaseacuteFebruary 2024 2:15pm [facility] Work Phone: 1(764) 419-766012-30-2024 Evaluation note* Diagnosis Onset Date Resolution Status [...] through stage 4 chronic kiinactiveFebruary 2024 2:15pm [facility] Work Phone: 1(856) 582-671911-25-2024 Telephone encounter Note* Telephone Encounter - Samantha Mcmahan RN - 10/10/2024 12:34 PM EST Pt informed of MM message, once verified, using 2 patient identifiers. Patient denies any questions, needs or concerns at this time. Appointment verified. Samantha Mcmahan RN [facility]11-25-2024 Miscellaneous Notes* Telephone Encounter - [...] levels Daksha Bridges PA-C documented in this encounterSalem Regional Medical Center11-25-2024 Telephone encounter Note * Telephone Encounter - Daksha Bridges PA-C - 10/10/2024 11:45 AM EST Please call with normal iron levels Daksha Bridges PA-C [facility]11-22-2024 History of Present illness Narrative* Daksha Bridges PA-C - 10/07/2024 2:30 PM EST Hematology Progress Note PATIENT NAME: Anh Tejeda [facility] NO.: [id number] ATTENDING PHYSICIAN: Henry Walker MD DATE OF SERVICE: 10/07/2024 This note was copied from prior heme/onc encounter from 07/15/2024. The patient's medications, allergies, past medical/surgical hx, family hx, ROS, and physical exam have all been reviewed and updatedas appropriate. The interval history and assessment/plan content have been modified and are specific to today's (10/07/2024) purpose for the visit. CHIEF COMPLAINT: Follow up Diagnosis: NANIA Treatment: Venofer x 3 doses 10/2022, again [...] Range Status 10/07/2024 5.4 % Final Abs Hidalgo Date Value Ref Range Status 10/07/2024 0.28 [...] are pending. Repeat labs and follow up ge1jjhxms. Chronic kidney disease stage 3b--likely secondary to [...] which included preparing to see the patient, sjed-yd-xazo patient care, completing clinical documentation, performing a medically appropriate examination, counseling and educating the patient/family/caregiver, ordering medications, tests, or p rocedures, independently interpreting results (not separately reported), communicating results to the patient/family/caregiver, and care coordination (not separately reported). documented in this encounterSalem Regional Medical Center11-22-2024 NoteHNO ID: [id number] Author: DAKSHA BRIDGES PA-C Service: ? Author Type: Physician Creative Services Writer Type: Progress Notes Filed: 10/07/2024 14:56 Note Text: Hematology Progress Note PATIENT NAME: Anh Tejeda [facility] NO.: [id number] ATTENDING PHYSICIAN: Henry Walker MD DATE OF [...] CO2 (mmol/L) Date Value (more content not included)...[facility]11-20-2024 History of Present illness Narrative* Jenny Watson [...] 10/18/2024 9:35 AM EST documented in this encounterMid Missouri Mental Health [id number] Progress note Author Ottoniel Bland [facility] July 22, 2024 2:19pmNote Date/TimeSept2023 2:18pmReeseville[place] [address] Neurology Progress Note Signed Patient: Anh Tejeda MR#: [id number] : 1950 Acct:[id number] Age/Sex: 73 / F Adm Date: 4 Loc: 3T Room: [address] [place] [address] Type: ADM INOo Attending Dr: Comfort Monteiro [...] <Electronically signed by Ottoniel Bland DO> 07/22/24 [facility] Work Phone: 1(777) 900-129709-06-2024 Discharge summary Author Comfort Monteiro [facility] July 22, 2024 1:39pmNote Date/TimeSept2023 1:26pmReeseville[place] [address] Discharge Summary Signed Patient: Anh Tejeda MR#: [id number] : 1950 Acct:[id number] Age/Sex: 73 / F Adm Date: 4 Loc: 3T Room: [address] [place] [address]: Comfort Monteiro MD Copies to: [...] Neut % (Auto) 60.0, Lymph % (Auto)31.4, Hidalgo % (Auto) 5.5, Eos % (Auto) 2.7, Baso % (Auto) 0.4, Nucleat RBC Rel Count 0.1, Neut # (Auto) 3.3, Lymph # (Auto) 1.7, Hidalgo # (Auto) 0.3, Eos # (Auto) 0.1, [...] <Electronically signed by Comfort Monteiro MD> 07/22/24 [facility] Work Phone: 1(627) 682-638509-05-2024 Consult note Author Ottoniel Bland [facility] July 21, 2024 4:56pmNote Date/TimeSept2023 3:59pmReeseville[place] [address] Neurology Consult Note Signed Patient: Anh Tejeda MR#: [id number] : 1950 Acct:[id number] Age/Sex: 73 / F Adm Date: 4 Loc: Room: [address] [place] [address] Type: ADM INOo Attending Dr: Comfort Monetiro MD Copies to: DO Vinay Mckeon DO Obaydah M Daromar, MD~ HPI Consult Date: 07/21/24 Computerized Machine Fabric Cutter: Ottoniel Bland DO [facility] Medical History COVID-19 Acute bronchitis CRESENCIO [...] Riki Garnica M.D.07/21/2024 12:02 PM Dictation Location[facility] 07/21/24 10:06 IMPRESSION: No acute intracranial pathology. 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 Impression dictated by: Riki Garnica M.D.07/21/2024 10:57 AM Dictation Location: [place] [address] Assessment/Plan (1) Slurred speech: Plan CONSULT REASON: [...] <Electronically signed by Ottoniel Bland DO> 07/21/24 1756 [facility] Work Phone: 1(934) 557-825509-05-2024 History and physical note Author Comfort Monteiro [facility] July 21, 2024 3:26pmNote Date/TimeSept2023 12:40pmReeseville[place] [address] Hospitalist H&P Signed Patient: Anh Tejeda MR#: [id number] : 1950 Acct:[id number] Age/Sex: 73 / F Adm Date: 4 Loc: Room: [address] [place] [address] Type: ADM INOo Attending Dr: Comfort Monteiro [...] except as mentioned elsewhere in the documentation [facility] Medical History COVID-19 Acute bronchitis CRESENCIO [...] % (Auto) 24.6 % (.) 07/21/24 10:25 Hidalgo % (Auto) 4.0 % (.) 07/21/24 10:25 Eos % (Auto) 2.5 % (.) 07/21/24 10:25 Baso % (Auto) 0.7 % (.) 07/21/24 10:25 Nucleat RBC Rel Count 0.0 /100 WBC (0-0.5) 07/21/24 10:25 Neut # (Auto) 3.3 x10E3/uL (1.8-7.7) 07/21/24 10:25 Lymph # (Auto) 1.2 x10E3/uL (1.00-4.8) 07/21/24 10:25 Hidalgo # (Auto) 0.2 x10E3/uL (0.0-0.8) 07/21/24 10:25 [...] pH 6.0 (5.0-9.0) 07/21/24 11:48 Ur Specific Rule 1.018 (1.001-1.030) 07/21/24 11:48 Urine Protein Negative [...] -Check MRI brain -PT/OT eval and treat -PSYCHOLOGICAL EXAMINER evaluation -Will keep hydralazine, labetalol IV as [...] <Electronically signed by Comfort Monteiro MD> 07/21/[address] [place] [address] Work Phone: 1([phone]) 386-780209-03-2024 Telephone encounter Note* Telephone Encounter - Samantha Mcmahan RN - 07/19/2024 12:48 PM EDT Pt informed of MM message and denies any questions, needs or concerns at this time. Appointment verified. Samantha Mcmahan RN [facility]09-03-2024 Miscellaneous Notes* Telephone Encounter - [...] time Daksha Bridges PA-C documented in this encounterSalem [facility] Center09-03-2024 Telephone encounter Note * Telephone Encounter - Daksha Bridges PA-C - 07/19/2024 12:36 PM EDT Please inform patient that she does not need iron at this time Daksha Bridges PA-C [facility]08-30-2024 History of Present illness Narrative* Daksha Bridges PA-C - 07/15/2024 2:30 PM EDT Hematology Progress Note PATIENT NAME: Anh Tejeda [facility] NO.: [id number] ATTENDING PHYSICIAN: Henry Walker MD DATE OF [...] Range Status 07/15/2024 5.0 % Final Abs Hidalgo Date Value Ref Range Status 07/15/2024 0.37 [...] levels drop. Daksha Bridges PA-C CC: Nisa Shephedr CNP I spent a total of 20 minutes on the date of the service which included preparing to see the patient, duev-cs-nuuk patient care, completing clinical documentation, performing a medically appropriate examination, counseling and educating the patient/family/caregiver, ordering medications, tests, or p rocedures, independently interpreting results (not separately reported), communicating results to the patient/family/caregiver, and care coordination (not separately reported). documented in this encounterSalem [facility] Medical Center06-05-2024 Telephone encounter Note * Telephone Encounter - Samantha Mcmahan RN - 04/20/2024 1:48 PM EDT Pt aware and denies any questions, needs or concerns at this time. Samantha Mcmahan RN [facility]06-05-2024 Miscellaneous Notes* Telephone Encounter - [...] time Samantha Mcmahan RN documented in this encounterSalem Regional Medical Center06-05-2024 Telephone encounter Note * Telephone Encounter - Daksha Bridges PA-C - 04/20/2024 1:20 PM EDT Iron levels look good Daksha Bridges PA-C [facility]06-05-2024 Telephone encounter Note* Telephone Encounter - Samantha Mcmahan RN - 04/20/2024 11:58 AM EDT Pt called to request Iron lab results. MM: please verify no needs at this time Samantha Mcmahan RN [facility]05-31-2024 Instructions* Patient Instructions* Shana Flores APRN.CNP - 04/15/2024 2:27 PM EDT Please call the office with questions or concerns. Report symptoms of worsening iron-deficiency anemia like short of breath, headaches, ice cravings, worsening fatigue, dizziness, or light-headedness. documented in this encounterSalem Regional Medical Center05-31-2024 History of Present illness Narrative* Shana Flores APRN.CNP - 04/15/2024 2:09 PM EDT Hematology Progress Note PATIENT NAME: Anh Tejeda [facility] NO.: [id number] ATTENDING PHYSICIAN: Henry Walker MD DATE OF [...] mg was 02/11/24. Will be seeing a charrer in the next couple of weeks for [...] Range Status 04/15/2024 4.7 % Final Abs Hidalgo Date Value Ref Range Status 04/15/2024 0.31 [...] SPEP/MPA. Shana Flores APRN.JENY Hematology/Oncology [place] [facility] [phone] CC: Nisa Shepherd CNP documented in this encounterSalem Regional Medical Center03-25-2024 History of Present illness Narrative* Renetta Johnson LSW - 02/08/2024 11:41 AM EDT Patient appears on the [facility] First Time Treatment List for a non-oncology treatment. No psychosocial assessment is indicated. ALIA Bean documented in this encounterSalem Regional Medical Center03-18-2024 Miscellaneous Notes* Telephone Encounter - [...] if she would like. documented in this encounterSalem Regional Medical Center03-15-2024 Miscellaneous Notes* Telephone Encounter - Samantha Mcmahan RN - 01/29/2024 1:15 PM EDT Pt called to inform MM her blood sugar is down to 198. Instructed to keep a record and notify PCPChristopheray for an appt to manage. She is agreeable and will call. Samantha Mcmahan RN documented in this encounterSalem Regional Medical Center03-15-2024 History of Present illness Narrative* Daksha Bridges PA-C - 01/29/2024 10:30 AM EDT PATIENT NAME: Anh [facility] NO.: [id number] ATTENDING PHYSICIAN: Henry Walker MD DATE OF [...] to sleep. Going on a trip to [place] for week. Current Outpatient Medications Medication Sig [...] Range Status 01/29/2024 3.5 % Final Abs Hidalgo Date Value Ref Range Status 01/29/2024 0.21 [...] which included preparing to see the patient, zppv-qi-gswn patient care, completing clinical documentation, obtaining and/or reviewing separately obtained history, performing a medically appropriate examination, counseling and educating the pat ient/family/caregiver, ordering medications, tests, or procedures, and communicating results to thepatient/family/caregiver. documented in this encounterSalem Regional Medical Center01-22-2024 Hospital Discharge instructions Patient Education [...] spleen. Follow these instructions at home: Take emht-ape-ebxnogm and prescription medicines only as told by [...] provider. Document Revised: 01/26/2023 Document Reviewed: 01/26/2023 [employer] Patient Education 2022 Virtual 3-D Display for Smartphones. Follow Up Care 11/12/2023 09:08:30 With:Nisa Shepherd CNP Address: When:3 months [facility] [phone] Miscellaneous Notes* Telephone Encounter - Samantha Mcmahan [...] with normal iron levels documented in this encounterSalem Regional Medical Center12-05-2023 Evaluation note* Encounter Date Diagnosis [...] fit. A prescription was sent to the [facility] for new supplies throughout the year. She [...] have anemia, she is currently seeing a hot mill tin roller and has needed some blood transfusion. They are currently managing this and she may need to see a charrer for kidney issues. Discussed c pt that [...] in a timely fashion. Do not smoke [employer] Other 09-11-2023 Miscellaneous Notes* Telephone Encounter - [...] with normal iron studies documented in this encounterSalem Regional Medical Center09-08-2023 Miscellaneous Notes* Telephone Encounter - [...] sooner. Daksha Bridges PA-C documented in this encounterSalem Regional Medical Center09-08-2023 Nurse Note* Beverly Reza MA - 07/24/2023 2:01 PM EDT Patient states that she has been very tired but her neuropathy have been bothering her. Beverly Marcus MA documented in this encounterSalem Regional Medical Center09-08-2023 History of Present illness Narrative* Daksha Bridges PA-C - 07/24/2023 2:00 PM EDT PATIENT NAME: Anh [facility] NO.: [id number] ATTENDING PHYSICIAN: Henry Walker MD DATE OF [...] Range Status 07/24/2023 5.9 % Final Abs Hidalgo Date Value Ref Range Status 07/24/2023 0.39 [...] CC: Nisa Shepherd CNP documented in this encounterSalem Regional Medical Center06-19-2023 Miscellaneous Notes* Telephone Encounter - [...] does not need iron. documented in this encounterSalem Regional Medical Center06-16-2023 History of Present illness Narrative* Daksha Bridges PA-C - 05/01/2023 2:00 PM EDT PATIENT NAME: Anh [facility] NO.: [id number] ATTENDING PHYSICIAN: Henry Walker MD DATE OF [...] last visit she did have admission to [facility] in February 2023for [...] a colonoscopy a few weeks ago at [facility]. I do not have any of these [...] Range Status 05/01/2023 6.0 % Final Abs Hidalgo Date Value Ref Range Status 05/01/2023 0.44 [...] in 3 months. Will request records from [facility] colonoscopy as well. Chronic kidney disease stage 3b--likely secondary to diabetes. Referral to nephrology recommended and she wishes to discuss to PCP Daksha Bridges PA-C CC: Nisa Shepherd CNP documented in this encounterSalem Regional Medical Center04-27-2023 Consult note Author Krissy Easton [facility] March 12, 2023 5:33pmNote Date/TimeApril 2022 11:16[place] [address] Neurology Consult Note Signed Patient: Anh Tejeda MR#: [id number] : 1950 Acct:[id number] Age/Sex: 72 / F Adm Date: 3 Loc: Room: [address] [place] [address] Type: ADM IN Attending Dr: Kimberly Arteaga MD Copies to: DO Queta Rubio ANP-C Mazhar Rahman, MD Nicole J Danner,~ HPI Consult Date: 03/12/23 Computerized Machine Fabric Cutter: ISAMAR Amato with Dr. Easton Reason for [...] and ulnar nerve compression CEREBELLAR EXAM: * Oqahbr-us-iobh and alternating movements are intact and normal in bilateral upper extremities * Hudt-wd-mrsz and alternating movements are intact and normal in lower extremities. She has difficulty with xptr-sy-nklz using the right lower extremity due to [...] of dysmetria with good rapid alternating movements pnwlhg-hv-vkoa Tone is physiologic Deep tendon reflexes are [...] care and confirmed this with the Fellow/Nurse Practitioner/Resident/Tree Farmer/Physician Creative Services Writer as noted below. 72 year old female [...] <Electronically signed by DENISE Prieto> 03/12/23 1156 [facility] Work Phone: 1(451) 400-399304-27-2023 Progress note Author Kimberly Arteaga [facility] March 12, 2023 4:35pmNote Date/TimeApril 2022 4:32pm[place] [address] Hospitalist Progress Note Signed Patient: Anh Tejeda MR#: [id number] : 1950 Acct:[id number] Age/Sex: 72 / F Adm Date: 3 Loc: Room: [address] [place] [address] Type: ADM IN Attending Dr: Kimberly Arteaga [...] signed by Kimberly Arteaga MD> 03/12/23 1635 [facility] Work Phone: 1([phone]) 186-145304-26-2023 History and physical note Author Kimberly Arteaga [facility] March 11, 2023 7:01pmNote Date/TimeApril 2022 6:46pmReeseville[place] [address] Hospitalist H&P Signed with Addenda Patient: Anh Tejeda MR#: [id number] : 1950 Acct:[id number] Age/Sex: 72 / F Adm Date: 3 Loc: Room: [address] [place] [address] Type: ADM IN Attending Dr: Kimberly Arteaga [...] % (Auto) 24.2 % (.) 03/11/23 15:41 Hidalgo % (Auto) 6.1 % (.) 03/11/23 15:41 Eos % (Auto) 1.4 % (.) 03/11/23 15:41 Baso % (Auto) 0.4 % (.) 03/11/23 15:41 Nucleat RBC Rel Count 0.1 /100 WBC (0-0.5) 03/11/23 15:41 Neut # (Auto) 3.9 x10E3/uL (1.8-7.7) 03/11/23 15:41 Lymph # (Auto) 1.4 x10E3/uL (1.00-4.8) 03/11/23 15:41 Hidalgo # (Auto) 0.3 x10E3/uL (0.0-0.8) 03/11/23 15:41 [...] pH 5.0 (5.0-9.0) 03/11/23 16:48 Ur Specific Rule 1.020 (1.001-1.030) 03/11/23 16:48 Urine Protein Negative [...] stroke. Documented By: Kimberly Arteaga MD 03/11/23 7252 Signed By: <Electronically signed by Kimberly Arteaga MD> 03/11/23 1856 [facility] Work Phone: [phone] 334-132403-27-2023 Miscellaneous Notes* Telephone Encounter - Sonia Rg [...] with normal iron labs documented in this encounterSalem Regional Medical Center03-24-2023 History of Present illness Narrative* Daksha Bridges PA-C - 02/06/2023 2:30 PM EDT PATIENT NAME: Anh [facility] NO.: [id number] ATTENDING PHYSICIAN: Henry Walker MD DATE OF [...] Range Status 02/06/2023 5.7 % Final Abs Hidalgo Date Value Ref Range Status 02/06/2023 0.37 [...] CC: Nisa Shepherd CNP documented in this encounterSalem Regional Medical Center02-08-2023 Hospital Discharge instructions Patient Education [...] powder, vinegar, hot sauces, and barbecue sauce. ?[place] fruit juices and citrus fruits, such as oranges, myron, and limes. ?Tomato-based foods, such as red sauce, chili, salsa, and pizza with red sauce. ?Fried and fatty foods, such as donuts, german fries, potato chips, and high-fat dressings. ?High-fat [...] to any changes in your symptoms. Take rkuu-njh-fzwvndk and prescription medicines only as told by [...] you have new or worsening symptoms. Take fska-ycw-ebftawt and prescription medicines only as told by [...] 08/12/2006 Document Revised: 05/11/2019 Document Reviewed: 05/11/2019 [employer] Patient Education 2020 Virtual 3-D Display for Smartphones. 12/24/2022 10:15:21 Gastroesophageal Reflux Disease, Adult Gastroesophageal [...] powder, vinegar, hot sauces, and barbecue sauce. ?[place]a fruit juices and citrus fruits, such as oranges, myron, and limes. ?Tomato-based foods, such as red sauce, chili, salsa, and pizza with red sauce. ?Fried and fatty foods, such as donuts, german fries, potato chips, and high-fat dressings. ?High-fat [...] to any changes in your symptoms. Take amin-znb-shzqaif and prescription medicines only as told by [...] you have new or worsening symptoms. Take irxz-mmk-tgqhoak and prescription medicines only as told by [...] 08/12/2006 Document Revised: 05/11/2019 Document Reviewed: 05/11/2019 [employer] Patient Education 2020 Virtual 3-D Display for Smartphones. Follow Up Care 09/19/2022 13:04:08 With:Nisa Shepherd CNP Address: When:3 months [facility] 01-30-2023 Miscellaneous Notes* Telephone Encounter [...] Keep appointments as scheduled documented in this encounterSalem Regional Medical Center01-27-2023 History of Present illness Narrative* Daksha Bridges PA-C - 12/12/2022 3:00 PM EST PATIENT NAME: Anh [facility] NO.: [id number] ATTENDING PHYSICIAN: Henry Walker MD DATE OF [...] 12/12/2022 1.24 1.00 - 4.00 k/uL Final Hidalgo% Date Value Ref Range Status 12/12/2022 5.0 % Final Abs Hidalgo Date Value Ref Range Status 12/12/2022 0.28 [...] CC: Nisa Shepherd CNP documented in this encounterSalem Regional Medical Center12-07-2022 History of Present illness Narrative* MAGUE Bean - 10/22/2022 9:46 AM EST Patient appears on the [facility] First Time Treatment List for a non-oncology treatment. No psychosocial assessment is indicated. ALIA Bean documented in this encounterSalem Regional Medical Center12-01-2022 History of Present illness Narrative* Daksha Bridges PA-C - 10/16/2022 10:30 AM EST PATIENT NAME: Anh Nikhil [facility] NO.: [id number] ATTENDING PHYSICIAN: Henry Walker MD DATE OF [...] 10/01/2022 1.07 1.00 - 4.00 k/uL Final Hidalgo% Date Value Ref Range Status 10/01/2022 4.6 % Final Abs Hidalgo Date Value Ref Range Status 10/01/2022 0.25 [...] CC: Nisa Shepherd CNP documented in this encounterSalem Regional Medical Center11-30-2022 Miscellaneous Notes* Telephone Encounter - Haley Milligan - 10/15/2022 10:08 AM EST Patient on 1st time treatment report-non oncology regimen (venofer) Patient holds medicare coverageand no FA available for this treatment. documented in this encounterSalem Regional Medical Center11-29-2022 Evaluation note* Encounter Date Diagnosis Assessment Notes Treatment Notes Treatment Clinical Notes Sep, Obstructive sleep apnea (ICD-10 - G47.33) Fortunately, the patient is using and benefiting from treatment. Download was reviewed with patient, Current pressure is controlling apnea well, And we will make no changes at this time. A prescription was sent to the [facility] for new supplies throughout the year. She [...] in a timely fashion. Do not smoke [employer] Other 11-25-2022 History of Present illness Narrative* MAGUE Bean - 10/10/2022 9:09 AM EST Patient appears on the First Time Treatment List for a non-oncology treatment. No psychosocial assessment is indicated. Renetta Alex, STERILE TECHNICIAN-S documented in this encounterSalem Regional Medical Center11-21-2022 Miscellaneous Notes* Telephone Encounter - [...] us arranging for it documented in this encounterSalem Regional Medical Center11-16-2022 History of Present illness Narrative* Henry Walker MD - 10/01/2022 11:47 AM EST PATIENT NAME: Anh [facility] NO.: [id number] ATTENDING PHYSICIAN: Henry Walker MD DATE OF [...] Henry Walker M.D. Hematology/Medical Oncology [facility] [phone] CC: Nisa Shepherd, PHOTOSTATIC COPY MAKER documented in this encounterSalem Regional Medical Center10-18-2022 Evaluation + Plan note Future Scheduled Tests Laboratory* B-Type Natriuretic Peptide 09/02/22 * TIBC Calculated 04/23/22 * Ferritin 04/23/22 * Folate Level 04/23/22 * Hepatic Function Panel 04/23/22 * Iron Level 04/23/22 * Magnesium Level 02/04/23 * Reticulocyte Count 04/23/22 * Vitamin B12 Level 04/23/22 [facility]07-28-2022 Hospital Discharge instructions Patient Education 06/12/2022 09:13:55 [...] unsweetened, w/added ascorbic acid 1 cup 0.5 [place] 1 cup 0.7 Vegetables Cooked Green beans 1 cup 4.0 Carrots 1/2 cup sliced 2.3 Peas 1 cup 8.8 Potato (baked, with skin) 1 medium potato 3.8 Raw [place] (with peel) 1 cucumber 1.5 Lettuce 1 [...] 8.7 Peanuts 1/2 cup 7.9 Chart from [facility] 2013. SEEK IMMEDIATE MEDICAL CARE [...] Reference. Available at http://www.nal.usda.gov/fnic/foodcomp/search/. Information adapted from: [facility] Patient Information 2009 [employer]easydocs. [employer] 2012 http://www.[employer]/contents/krcbjgohtnev-qbdkvhl-awtzcq-the-basics 06/12/2022 09:13:55 Colon Polyps Colon Polyps Polyps [...] 07/29/2005 Document Revised: 02/17/2019 Document Reviewed: 02/17/2019 [employer] Patient Education 2020 Virtual 3-D Display for Smartphones. 06/12/2022 09:13:55 Colonoscopy, Care After Surgery [facility] (CUSTOM) Colonoscopy Care After Surgery Please read the instructions outlined below and refer to this sheet in the next few weeks. These discharge instructions provide you with general information on caring for [facility] Your doctor may also give you [...] day. 06/12/2022 09:13:55 Endoscopy, Care After Procedure [facility] ([facility]UST[facility]) Endoscopy Care After Procedure Please read the instructions outlined below and refer to this sheet in the next few weeks. These discharge instructions provide you with general information on caring for [facility] Your doctor may also give you [...] blood. Document Released: 06/16/2005 Document Re-Released: 04/26/2007 [facility] Patient Information 2009 [employer]. Follow Up Care 04/23/2022 14:07:59 With:Jason RUSSELL Address: [address] [place] [address]. [address] [place] [address] Business (1) When:1 to 2 weeks Comments:Call for any problems. [facility]+Reason for visit Narrative* Chief Complaint See order RENAL CKD PROGRESSIONReason for VisitAnemia of renal disease Chronic kidney disease, stage III (moderate) Hyperlipidemia [id number] Secondary hyperparathyroidism Type 2 diabetes mellitus with diabetic chronic kidney disease [facility] Work Phone: Chief complaint+Reason for visit Narrative* Chief Complaint RENAL CKD PROGRESSIO N N18.30 E78.5 N25.81 N18.9 D63.1 I12.9 E11.22 N18.3Reason for VisitAnemia of renal disease Chronic kidney disease, stage III (moderate) Hyperlipidemia [id number] Secondary hyperparathyroidism Type 2 diabetes mellitus with diabetic chronic kidney disease [facility] Work Phone: Chief complaint+Reason for visit Narrative* Chief Complaint RENAL CKD PROGRESSIO N N18.30 E78.5 N25.81 N18.9 D63.1 I12.9 E11.22 N18.3 RENAL 6 Week F/UReason for VisitAnemia of renal disease Chronic kidney disease, stage III (moderate) Hyperlipidemia [id number] Secondary hyperparathyroidism Type 2 diabetes mellitus with diabetic chronic kidney disease Anemia of renal disease Chronic kidney disease, stage III (moderate) Hyperlipidemia [id number] Hypomagnesemia Secondary hyperparathyroidism Type 2 diabetes mellitus with diabetic chronic kidney disease [facility] Work Phone: Chiho complaint+Reason for visit Narrative* Chief Complaint RENAL CKD PROGRESSIO N N18.30 E78.5 N25.81 N18.9 D63.1 I12.9 E11.22 N18.3 RENAL 6 Week F/U heart palpatationsReason for VisitAnemia of renal disease Chronic kidney disease, stage III (moderate) Hyperlipidemia [id number] Secondary hyperparathyroidism Type 2 diabetes mellitus with diabetic chronic kidney disease Anemia of renal disease Chronic kidney disease, stage III (moderate) Hyperlipidemia [id number] Hypomagnesemia Secondary hyperparathyroidism Type 2 diabetes mellitus with diabetic chronic kidney disease Heart palpitations [id number] Hypertensive urgency Slurred speech Type 2 diabetes mellitus with diabetic chronic kidney disease [facility] Work Phone: Discharge summary Author Kimberly Arteaga [facility] March 13, 2023 1:09pmNote Date/TimeApril 2022 1:08pm41 [address] [address] Discharge Summary Signed Patient: Anh Tejeda MR#: [id number] : 1950 Acct:[id number] Age/Sex: 72 / F Adm Date: 3 Loc: Room: [address] [place] [address]: Kimberly Arteaga MD Copies to: [...] % (Auto) 62.5, Lymph % (Auto) 28.5, Hidalgo % (Auto) 6.9, Eos % (Auto) 1.7, Baso % (Auto) 0.4, Nucleat RBC Rel Count 0.1, Neut # (Auto)3.1, Lymph # (Auto) 1.4, Hidalgo # (Auto) 0.3, Eos # (Auto) 0.1, [...] signed by Kimberly Arteaga MD> 03/13/23 1309 [facility] Work Phone: Evaluation + Plan note Future Appointments Appointment Date:06/12/2022 08:45:00 AM Scheduled Provider: Location:[facility] Appointment Type:Surgery FT Appointment Date:08/18/2022 11:45:00 AM Scheduled Provider:Jose Carlos Mattson MD [facility] Type:Cardiology Follow Up (FT) Future Scheduled Tests Laboratory* TIBC Calculated 04/23/22 * Ferritin 04/23/22 * Folate Level 04/23/22 * Hepatic Function Panel 04/23/22 * Iron Level 04/23/22 * Reticulocyte Count 04/23/22 * Vitamin B12 Level 04/23/22 [facility] Evaluation + Plan note Future Appointments Appointment Date:08/18/2022 11:45:00 AM Scheduled Provider:Jose Carlos Mattson MD [facility] Type:Cardiology Follow Up (FT) Future Scheduled Tests Laboratory* TIBC Calculated 04/23/22 * Ferritin 04/23/22 * Folate Level 04/23/22 * Hepatic Function Panel 04/23/22 * Iron Level 04/23/22 * Reticulocyte Count 04/23/22 * Vitamin B12 Level 04/23/22 [facility] Future Appointments Appointment Date:09/19/2022 12:20:00 PM Scheduled Provider:Nisa Shepherd CNP Location[facility] Appointment Type:[facility] Follow Up Future Scheduled Tests Laboratory* B-Type Natriuretic Peptide 09/02/22 * TIBC Calculated 04/23/22 * Ferritin 04/23/22 * Folate Level 04/23/22 * Hepatic Function Panel 04/23/22 * Iron Level 04/23/22 * Reticulocyte Count 04/23/22 * Vitamin B12 Level 04/23/22 [facility] Future Appointments Appointment Date:12/24/2022 10:20:00 AM Scheduled Provider:Nisa Shepherd CNP Location[facility] Appointment Type:BAD Follow Up Future Scheduled Tests Laboratory* B-Type Natriuretic Peptide 09/02/22 * TIBC Calculated 04/23/22 * Ferritin 04/23/22 * Folate Level 04/23/22 * Hepatic Function Panel 04/23/22 * Iron Level 04/23/22 * Reticulocyte Count 04/23/22 * Vitamin B12 Level 04/23/22 [facility] Future Appointments Appointment Date:02/03/2023 10:00:00 AM Scheduled Provider: [facility] Type:US Abdominal/Pelvis () Appointment Date:03/23/2023 09:20:00 AM Scheduled Provider:Nisa Shepherd CNP Location:[facility] Appointment Type:[facility] Follow Up Future Scheduled Tests Laboratory* B-Type [...] 02/03/23 * NM Gastric Emptying Study 12/24/22 [facility] Evaluation + Plan note Future Appointments Appointment Date:02/03/2023 10:00:00 AM Scheduled Provider: [facility] Type:US Abdominal/Pelvis () Appointment Date:03/23/2023 09:20:00 AM Scheduled Provider:Nisa Shepherd CNP Location:[facility] Appointment Type:[facility] Follow Up Future Scheduled Tests Laboratory* B-Type [...] B12 Level 12/24/22 Radiology* US Liver 02/03/23 [facility] Future Appointments Appointment Date:04/22/2023 10:00:00 AM Scheduled Provider: Location:[facility] Appointment Type:Surgery FT Future Scheduled Tests Laboratory* B-Type Natriuretic Peptide 09/02/22 * TIBC Calculated 04/23/22 * Ferritin 04/23/22 * Folate Level 04/23/22 * Hepatic Function Panel 04/23/22 * Iron Level 04/23/22 * Magnesium Level 02/04/23 * Reticulocyte Count 04/23/22 * Vitamin B12 Level 04/23/22 [facility] Evaluation + Plan note Future Appointments Appointment Date:01/28/2024 09:00:00 AM Scheduled Provider: Location:.[facility] Appointment Type:US Abdominal/Pelvis (FT) Appointment Date:02/29/2024 09:20:00 AM Scheduled Provider:Nisa Shepherd CNP Location:[facility] Appointment Type:[facility] Follow Up Future Scheduled Tests Laboratory* HCV RNA by PCR, Qn Rfx Arlet 12/08/23 * Semyw-8-Exhuocxowrg 12/08/23 * Ceruloplasmin 12/08/23 * Antimitochondrial Antibody, [...] * Transferrin 12/08/23 Radiology* US Liver 01/28/24 [facility] Evaluation + Plan note Future Appointments Appointment Date:02/29/2024 09:20:00 AM Scheduled Provider:Nisa Shepherd CNP Location[facility] Appointment Type:[facility] Follow Up Diagnostic Tests Pending * Yhlzk-3-Fyalivjjkem 01/28/24 * MAXX w/Reflex if POS 01/28/24 [...] Future Scheduled Tests Laboratory* Magnesium Level 02/04/23 [facility] Future Appointments Appointment Date:02/29/2024 09:20:00 AM Scheduled Provider:Nisa Shepherd CNP Location:[facility] Appointment Type:[facility] Follow Up Future Scheduled Tests Laboratory* Magnesium Level 02/04/23 [facility] Future Appointments Appointment Date:09/29/2024 09:45:00 AM Scheduled Provider:Verónica Ugarte MD Location:[facility] Appointment Type:[facility] Follow Up [facility] Evaluation + Plan note Future Appointments Appointment Date:03/30/2025 09:30:00 AM Scheduled Provider:Verónica Ugarte MD Location:[facility] Appointment Type:[facility] Follow Up [facility] Evaluation + Plan note Future Appointments Appointment Date:03/30/2025 09:30:00 AM Scheduled Provider:Verónica Ugarte MD Location:[facility] Appointment Type[facility] Follow Up Diagnostic Tests Pending * Alpha Fetoprotein Tumor Marker 03/27/25 [facility] Evaluation + Plan note Future Appointments Appointment Date:01/10/2026 10:45:00 AM Scheduled Provider:Verónica Ugarte MD Location:[facility] Appointment Type:[facility] Follow Up Future Scheduled Tests Laboratory* Comprehensive Metabolic Panel 01/11/26 [facility] evaluation noteNo assessment information available [facility] Work Phone: evaluation note* Diagnosis Anemia, unspecified type- Primary [facility] Diagnosis Iron deficiency anemia due to chronic blood loss Iron deficiency anemia secondary to blood loss (chronic) [facility] Diagnosis Anemia, unspecified type- Primary Iron deficiency anemia secondary to inadequate dietary iron intake [facility] Diagnosis Iron deficiency anemia due to chronic blood loss- Primary Iron deficiency anemia secondary to blood loss (chronic) [facility]* Diagnosis Iron deficiency anemia due to chronic blood loss- Primary Iron deficiency anemia secondary to blood loss (chronic) [facility]* Diagnosis Iron deficiency anemia due to chronic blood loss- Primary Iron deficiency anemia secondary to blood loss (chronic) [facility]* Diagnosis Iron deficiency anemia secondary to inadequate dietary iron intake- Primary [facility]* Diagnosis Iron deficiency anemia secondary to inadequate dietary iron intake- Primary [facility]* Diagnosis Onset Date Resolution Status Acute UTI acuteChronic kidney disease, stage III (moderate)acuteDiabetesacuteHypertensive urgencyacuteParesthesias in right handacuteSlurred speechacuteSyncopeacute [facility] Work Phone: evaluation note* Diagnosis Iron deficiency anemia secondary to inadequate dietary iron intake- Primary Stage 3b chronic kidney disease (HCC) [facility]* Diagnosis Iron deficiency anemia secondary to inadequate dietary iron intake- Primary Stage 3b chronic kidney disease (HCC) [facility]* Diagnosis Stage 3b chronic kidney disease (HCC)- Primary Iron deficiency anemia secondary to inadequate dietary iron intake [facility]* Diagnosis Iron deficiency anemia due to chronic blood loss- Primary Iron deficiency anemia secondary to blood loss (chronic) [facility]* Diagnosis Iron deficiency anemia due to chronic blood loss- Primary Iron deficiency anemia secondary to blood loss (chronic) [facility]* Diagnosis Iron deficiency anemia, unspecified iron deficiency anemia type- Primary Anemia of chronic renal failure, unspecified CKD stage Thrombocytopenia (HCC) Thrombocytopenia, unspecified [facility]* Diagnosis Onset Date Resolution Status Anemia of renal disease acuteChronic kidney disease, stage III (moderate)acuteHyperlipidemiaacute [id number] hyperparathyroidismacuteType 2 diabetes mellitus with diabetic chronic kidney diseaseacute [facility] Work Phone: Evaluation note* Diagnosis Onset Date Resolution Status Anemia of renal disease acuteChronic kidney disease, stage III (moderate)acuteHyperlipidemiaacute [id number] hyperparathyroidismacuteType 2 diabetes mellitus with diabetic chronic kidney diseaseacuteAnemia of renal diseaseacuteChronic kidney disease, stage III (moderate)swxwbUurkmaddgelkocdtozkKKV-[id number] acuteHypomagnesemiaacuteSecondary hyperparathyroidismacuteType 2 diabetes mellitus with diabetic chronic kidney diseaseacute [facility] Work Phone: Evaluation note* Diagnosis Iron deficiency anemia, unspecified iron deficiency anemia type- Primary Anemia of chronic renal failure, unspecified CKD stage [facility]* Diagnosis Onset Date Resolution Status Anemia of renal disease acuteChronic kidney disease, stage III (moderate)acuteHyperlipidemiaacute [id number] hyperparathyroidismacuteType 2 diabetes mellitus with diabetic chronic kidney diseaseacuteAnemia of renal diseaseacuteChronic kidney disease, stage III (moderate)lpyjtOtcptdzdewjzeyszlmlUGA-[id number] acuteHypomagnesemiaacuteSecondary hyperparathyroidismacuteType 2 diabetes mellitus with diabetic chronic kidney diseaseacuteHeart palpitationsacute GVH-IZMU-[id number] urgencyacuteSlurred speechacuteType 2 diabetes mellitus with diabetic chronic kidney diseaseacute [facility] Work Phone: Evaluation note* Diagnosis Transient ischemic attack- Primary Unspecified transient cerebral ischemia Palpitations Polyneuropathy Unspecified hereditary and idiopathic peripheral neuropathy documented [facility] encounter [facility]* Diagnosis Onset Date Resolution Status Anemia of renal disease acuteChronic kidney disease, stage III (moderate)acuteHyperlipidemiaacute HypomagnesemiaacuteSecondary hyperparathyroidismacuteHeart palpitationsresolved Slurred speechresolved [facility] Work Phone: Evaluation note* Diagnosis Iron deficiency anemia, unspecified iron deficiency anemia type- Primary Thrombocytopenia (HCC) Thrombocytopenia, unspecified Stage 3b chronic kidney disease (HCC) [facility] Diagnosis Hearing loss, mixed, bilateral- Primary Mixed hearing loss, bilateral documented in this encounter [facility] HealthcareEvaluation note* Diagnosis Iron deficiency anemia, unspecified iron deficiency anemia type- Primary [facility]* Diagnosis Transient ischemic attack- Primary Unspecified transient cerebral ischemia Polyneuropathy Unspecified hereditary and idiopathic peripheral neuropathy Carpal tunnel syndrome, bilateral upper limbs [facility] Diagnosis Iron deficiency anemia, unspecified iron deficiency anemia type- Primary Thrombocytopenia (HCC) Thrombocytopenia, unspecified Stage 3b chronic kidney disease (HCC) [facility]* Diagnosis Transient ischemic attack- Primary Unspecified transient cerebral ischemia Polyneuropathy Unspecified hereditary and idiopathic peripheral neuropathy Syncope and collapse Carpal tunnel syndrome, bilateral upper limbs [facility]* Diagnosis Anemia, unspecified type- Primary Iron deficiency anemia, unspecified iron deficiency anemia type Stage 3b chronic kidney disease (HCC) Anemia in stage 3a chronic kidney disease (HCC) [facility] Diagnosis Anemia, unspecified type- Primary [facility]* Diagnosis Onset Date Resolution Status Admit Date Anemia of renal disease acuteAugust 2024 9:42amChronic kidney disease, stage III (moderate)acute July 05, 2025 9:42amHyperlipidemiaacuteAugust 2024 9:42am HypomagnesemiaacuteAugust 2024 9:42amSecondary hyperparathyroidismacute July 05, 2025 9:42amType 2 diabetes mellitus with diabetic chronic kidney diseaseacuteAugus2024 9:42amHypertensive chronic kidney disease with stage 1 through stage 4 chronic kiinactiveAugust 2024 9:42am [facility] Work Phone: History general Narrative - Reported* Type Description Date Medical History Gastroesophageal ref lux disease, esophagitis presence not specified Medical HistoryRLS (restless legs syndrome)Medical HistoryBenign essential HTN Medical HistoryHypercholesterolemiaMedical HistoryType 2 diabetes mellitus without complication, without long-term current use of insulinMedical HistoryOSA (obstructive sleep apnea)Surgical HistoryhysterectomySurgical History cholecystectomySurgical Historyknee arthroscopy [facility] Retina Implant Other Hospital course Narrative No data available for this section [facility] Discharge instructions No data available for this section [facility] Discharge instructions Additional Instructions Check blood glucose before meals and at [facility]time[facility] Work Phone: Progress note No data available for this section [facility]Reason for referral (narrative)No reason for referral information availableAdena [facility] Work Phone: Advance Directives No Advanced Directives [...] for Visit Admit Date Essential (primary) hypertension [facility] r 2023 12:57pm Insomnia November 14, [...] for Visit Admit Date Essential (primary) hypertension [facility] r 2023 12:57pm Insomnia November 14, [...] for Visit Admit Date Essential (primary) hypertension [facility] 2023 12:57pm Insomnia November 14, 2024 [...] a 30 minute post dose observation. New Bag/Syringe/Znbkfi9610/16/2022 10:55 AM WNI857 mg166.67 mL/hrMedication Order MAR ActionAction DateDoseRateSite iron sucrose 300 mg in NaCl 0.9% 250 mL (VENOFER) 300 mg, INTRAVENOUS, at 166.67 mL/hr, Administer over 90 Minutes, ONCE, 1 dose, On [facility] 10/23/22 at 1400, Please conduct a 30 minute post dose observation. New Bag/Syringe/Ixryqd5010/23/2022 1:45 PM [id number] mg166.67 mL/hrMedication Order MAR ActionAction DateDoseRateSite iron sucrose 300 mg in NaCl 0.9% 250 mL (VENOFER) 300 mg, INTRAVENOUS, at 166.67 mL/hr, Administer over 90 Minutes, ONCE, 1 dose, On [facility] 10/30/22 at 1330, Please conduct a 30 minute post dose observation. New Bag/Syringe/Oqqasi6210/30/2022 1:32 PM [id number] mg166.67 mL/hr Family History No Family History [...] Palpitations Procedures Cardiac event monitor Queta Prieto, HOLE DIGGER OPERATOR [address] [place] [address] Referral IDStatusReasonStart DateExpiration DateVisits RequestedVisits [id number] Additional Source Comments Care Team (unrecognized sect [...] Start DateEnd Date Nisa Shepherd, JENY [address] [place] [address] PCP - GeneralFami Pxytqrjz93/7/22Team MemberRelationshipSpecialtyStart DateEnd Date Nisa Shepherd, PHOTOSTATIC COPY MAKER [address] [place] [address] PCP - [facility] Kmivptkd43/7/22Team MemberRelationshipSpecialtyStart DateEnd Date Nisa Shepherd, PHOTOSTATIC COPY MAKER [address] [place] [address] PCP - [facility]09/22/22Team MemberRelationshipSpecialtyStart DateEnd Date Nisa Shepherd, PHOTOSTATIC COPY MAKER [address] [place] [address] PCP - [facility]09/22/22 Team Status: Inactive Member Role Status Dates Vinay Matta , DO Primary Care Provider Active Anh Delcid NPAttending ProviderActiveTeam MemberRelationshipSpecialtyStart DateEnd Date Nisa Shepherd, PHOTOSTATIC COPY MAKER [address] [place] [address] PCP - [facility] Pahccbrb50/7/22Team MemberRelationshipSpecialtyStart DateEnd Date Nisa Shepherd, PHOTOSTATIC COPY MAKER [address] [place] [address] PCP - [facility] Ohjbouwg23/7/22Team MemberRelationshipSpecialtyStart DateEnd Date Nisa Shepherd, PHOTOSTATIC COPY MAKER [address] [place] [address] [facility] - [facility] Zdmivowr69/7/22Team MemberRelationshipSpecialtyStart DateEnd Date Nisa Shepherd, PHOTOSTATIC COPY MAKER [address] [place] [address] PCP - [facility]09/22/22Team MemberRelationshipSpecialtyStart DateEnd Date Nisa Shepherd, JENY [address] [place] [address] PCP - [facility]09/22/22Team MemberRelationshipSpecialtyStart DateEnd Date Nisa Shepherd CNP [address] [place] [address] PCP - [facility]09/22/22 Team Status: Inactive Member Role Status Dates Vinay Matta , DO Primary Care Provider Active Alla Osborn ProviderActiveTeam MemberRelationshipSpecialtyStart DateEnd Date Nisa Shepherd CNP [address] [facility] [place] [address] PCP - [facility]09/22/22 Team Status: Inactive Member Role Status [...] FERDINAND Amato-BCAttending ProviderActiveTeam MemberRelationship SpecialtyStart DateEnd Date Nsia Shepherd CNP [address] [place] [address] PCP - [facility]09/22/22Team MemberRelationshipSpecialtyStart DateEnd Date Nisa Shepherd CNP [address] [place] [address] PCP - [facility]09/22/22Team MemberRelationshipSpecialtyStart DateEnd Date Nisa Shepherd CNP [address] [place] [address] PCP - [facility]09/22/22Team MemberRelationshipSpecialtyStart DateEnd Date Nisa Shepherd CNP [address] [place] [address] PCP - [facility]09/22/22Team MemberRelationshipSpecialtyStart DateEnd Date Nisa Shepherd CNP [address] [place] [address] PCP - [facility]09/22/22Team MemberRelationshipSpecialtyStart DateEnd Date Nisa Shepherd CNP [address] [place] [address] PCP - [facility]09/22/22Team MemberRelationshipSpecialtyStart DateEnd Date Nisa Shepherd CNP [address] [place] [address] PCP - [facility]09/22/22 Team Status: Inactive Member Role Status Dates Vinay Matta DO Primary Care Provide r, Attending Provider Active Start: February 11, 2024 End: February 11, 2024Team MemberRelationshipSpecialtyStart DateEnd Date Nisa Shepherd CNP [address] [place] [address] PCP - [facility]09/22/22Team MemberRelationshipSpecialtyStart DateEnd Date Nisa Shepherd CNP [address] [place] [address] PCP - [facility]09/22/22Team MemberRelationshipSpecialtyStart DateEnd Date Nisa Shepherd CNP [address] [place] [address] [facility] - [facility]09/22/22Team MemberRelationshipSpecialtyStart DateEnd Date Nisa Shepherd CNP [address] [place] [address] [facility] - [facility]09/22/22 Team Status: Inactive Member Role Status [...] Shepherd CNP [address] [place] [address] PCP - [facility]09/22/22 Team Status: Active Member Role Status [...] 22, 2024Team MemberRelationshipSpecialtyStart DateEnd Date JwhomerVinay [address] [place] [address] [facility] - [facility]01/13/24 Trae Mccarty MD [address] [place] [address] PCP - [facility]11/16/23Team MemberRelationshipSpecialtyStart DateEnd Date JwhomerVinay [address] [place] [address] [facility] - [facility]01/13/24 Trae Mccarty MD [address] [place] [address] PCP - [facility]11/16/23 Team Status: Inactive Member Role Status Dates Vinay Matta DO Primary Care Provide r, Attending Provider Active Start: September 19, 2024 End: September 19, 2024Team MemberRelationshipSpecialtyStart DateEnd Date Nisa Shepherd CNP [address] [place] [address] PCP - [facility]09/22/22Team MemberRelationshipSpecialtyStart DateEnd Date Nisa Shepherd CNP [address] [place] [address] PCP - [facility]09/22/22Team MemberRelationshipSpecialtyStart DateEnd Date Vinay Matta [address] [facility] [place] [address] PCP - [facility]01/13/24 Trae Mccarty MD [address] [place] [address] PCP - [facility]11/16/23 Team Status: Inactive Member [...] Start: December 27, 2024 End: December 27bdul Trery , MDAttending ProviderActiveStart: December 27, 2024 End: [...] 2024Team MemberRelationshipSpecialtyStart DateEnd Date Vinay Matta [address] [facility] [place] [address] [facility]01/13/24 Trae Mccarty MD [address] [place] [place] [address] PCP - [facility]11/16/23Team MemberRelationshipSpecialtyStart DateEnd Date Vinay Matta [address] [facility] [place] [address] [facility] - [facility]01/13/24 Trae Mccarty MD [address] [place] [place] [address] PCP - [facility]11/16/23Team MemberRelationshipSpecialtyStart DateEnd Date Nisa Shepherd CNP [address] [place] [address] [place] [address] [facility] - [facility]22Team MemberRelationshipSpecialtyStart DateEnd Date Nisa Shepherd PHOTOSTATIC COP[employer]KER [address] [place] [address] PCP - [facility]09/22/22 Team Status: Inactive Member Role Status Dates Vinay Matta DO Primary Care Provider Active Start: February 08, 2025 End: February 08ndlarissa Bruner MDAttending ProviderActiveStart: February 08, 2025 End: February 08, 2025Team MemberRelationshipSpecialtyStart DateEnd Date Vinay Matta [address] [facility] [place] [address] PCP - [facility]01/13/24 Trae Mccarty MD [address] [place] [address] [facility]11/16/23Team MemberRelationshipSpecialtyStart DateEnd Date Nisa Shepherd PHOTOSTATIC COP[employer] MAKER [address] [place] [address] PCP - [facility]09/22/22 Team Status: Inactive Member Role Status [...] or prosecute any alcohol or drug abuse patient.[facility] CenterIn the event this information is protected by the Federal Confidentiality of Alcohol and Drug Abuse Patient Records regulations: The Federal rules restrict any use of the information to criminally investigate or prosecute any alcohol or drug abuse patient.[facility] CenterIn the event this information is protected by the Federal Confidentiality of Alcohol and Drug Abuse Patient Records regulations: The Federal rules restrict any use of the information to criminally investigate or prosecute any alcohol or drug abuse patient.[facility] CenterIn the event this information is protected by the Federal Confidentiality of Alcohol and Drug Abuse Patient Records regulations: The Federal rules restrict any use of the information to criminally investigate or prosecute any alcohol or drug abuse patient.[facility] CenterIn the event this information is protected by the Federal Confidentiality of Alcohol and Drug Abuse Patient Records regulations: The Federal rules restrict any use of the information to criminally investigate or prosecute any alcohol or drug abuse patient.[facility] CenterIn the event this information is protected by the Federal Confidentiality of Alcohol and Drug Abuse Patient Records regulations: The Federal rules restrict any use of the information to criminally investigate or prosecute any alcohol or drug abuse patient.[facility] CenterIn the event this information is protected by the Federal Confidentiality of Alcohol and Drug Abuse Patient Records regulations: The Federal rules restrict any use of the information to criminally investigate or prosecute any alcohol or drug abuse patient.[facility] CenterIn the event this information is protected by the Federal Confidentiality of Alcohol and Drug Abuse Patient Records regulations: The Federal rules restrict any use of the information to criminally investigate or prosecute any alcohol or drug abuse patient.[facility] CenterIn the event this information is protected by the Federal Confidentiality of Alcohol and Drug Abuse Patient Records regulations: The Federal rules restrict any use of the information to criminally investigate or prosecute any alcohol or drug abuse patient.[facility] CenterIn the event this information is protected by the Federal Confidentiality of Alcohol and Drug Abuse Patient Records regulations: The Federal rules restrict any use of the information to criminally investigate or prosecute any alcohol or drug abuse patient.[facility] CenterIn the event this information is protected by the Federal Confidentiality of Alcohol and Drug Abuse Patient Records regulations: The Federal rules restrict any use of the information to criminally investigate or prosecute any alcohol or drug abuse patient.[facility] CenterIn the event this information is protected by the Federal Confidentiality of Alcohol and Drug Abuse Patient Records regulations: The Federal rules restrict any use of the information to criminally investigate or prosecute any alcohol or drug abuse patient.[facility] CenterIn the event this information is protected by the Federal Confidentiality of Alcohol and Drug Abuse Patient Records regulations: The Federal rules restrict any use of the information to criminally investigate or prosecute any alcohol or drug abuse patient.[facility] CenterIn the event this information is protected by the Federal Confidentiality of Alcohol and Drug Abuse Patient Records regulations: The Federal rules restrict any use of the information to criminally investigate or prosecute any alcohol or drug abuse patient.[facility] CenterIn the event this information is protected by the Federal Confidentiality of Alcohol and Drug Abuse Patient Records regulations: The Federal rules restrict any use of the information to criminally investigate or prosecute any alcohol or drug abuse patient.[facility] CenterIn the event this information is protected by the Federal Confidentiality of Alcohol and Drug Abuse Patient Records regulations: The Federal rules restrict any use of the information to criminally investigate or prosecute any alcohol or drug abuse patient.[facility] CenterIn the event this information is protected by the Federal Confidentiality of Alcohol and Drug Abuse Patient Records regulations: The Federal rules restrict any use of the information to criminally investigate or prosecute any alcohol or drug abuse patient.[facility] CenterIn the event this information is protected by the Federal Confidentiality of Alcohol and Drug Abuse Patient Records regulations: The Federal rules restrict any use of the information to criminally investigate or prosecute any alcohol or drug abuse patient.[facility] CenterIn the event this information is protected by the Federal Confidentiality of Alcohol and Drug Abuse Patient Records regulations: The Federal rules restrict any use of the information to criminally investigate or prosecute any alcohol or drug abuse patient.[facility] CenterIn the event this information is protected by the Federal Confidentiality of Alcohol and Drug Abuse Patient Records regulations: The Federal rules restrict any use of the information to criminally investigate or prosecute any alcohol or drug abuse patient.[facility] CenterIn the event this information is protected by the Federal Confidentiality of Alcohol and Drug Abuse Patient Records regulations: The Federal rules restrict any use of the information to criminally investigate or prosecute any alcohol or drug abuse patient.[facility] CenterIn the event this information is protected by the Federal Confidentiality of Alcohol and Drug Abuse Patient Records regulations: The Federal rules restrict any use of the information to criminally investigate or prosecute any alcohol or drug abuse patient.[facility] CenterIn the event this information is protected by the Federal Confidentiality of Alcohol and Drug Abuse Patient Records regulations: The Federal rules restrict any use of the information to criminally investigate or prosecute any alcohol or drug abuse patient.[facility] CenterIn the event this information is protected by the Federal Confidentiality of Alcohol and Drug Abuse Patient Records regulations: The Federal rules restrict any use of the information to criminally investigate or prosecute any alcohol or drug abuse patient.[facility] CenterIn the event this information is protected by the Federal Confidentiality of Alcohol and Drug Abuse Patient Records regulations: The Federal rules restrict any use of the information to criminally investigate or prosecute any alcohol or drug abuse patient.[facility] CenterIn the event this information is protected by the Federal Confidentiality of Alcohol and Drug Abuse Patient Records regulations: The Federal rules restrict any use of the information to criminally investigate or prosecute any alcohol or drug abuse patient.[facility] CenterIn the event this information is protected by the Federal Confidentiality of Alcohol and Drug Abuse Patient Records regulations: The Federal rules restrict any use of the information to criminally investigate or prosecute any alcohol or drug abuse patient.[facility] CenterIn the event this information is protected by the Federal Confidentiality of Alcohol and Drug Abuse Patient Records regulations: The Federal rules restrict any use of the information to criminally investigate or prosecute any alcohol or drug abuse patient.[facility] CenterIn the event this information is protected by the Federal Confidentiality of Alcohol and Drug Abuse Patient Records regulations: The Federal rules restrict any use of the information to criminally investigate or prosecute any alcohol or drug abuse patient.[facility] CenterIn the event this information is protected by the Federal Confidentiality of Alcohol and Drug Abuse Patient Records regulations: The Federal rules restrict any use of the information to criminally investigate or prosecute any alcohol or drug abuse patient.[facility] CenterIn the event this information is protected by the Federal Confidentiality of Alcohol and Drug Abuse Patient Records regulations: The Federal rules restrict any use of the information to criminally investigate or prosecute any alcohol or drug abuse patient.[facility] CenterIn the event this information is protected by the Federal Confidentiality of Alcohol and Drug Abuse Patient Records regulations: The Federal rules restrict any use of the information to criminally investigate or prosecute any alcohol or drug abuse patient.[facility] CenterIn the event this information is protected by the Federal Confidentiality of Alcohol and Drug Abuse Patient Records regulations: The Federal rules restrict any use of the information to criminally investigate or prosecute any alcohol or drug abuse patient.[facility] CenterIn the event this information is protected by the Federal Confidentiality of Alcohol and Drug Abuse Patient Records regulations: The Federal rules restrict any use of the information to criminally investigate or prosecute any alcohol or drug abuse patient.[facility] CenterIn the event this information is protected by the Federal Confidentiality of Alcohol and Drug Abuse Patient Records regulations: The Federal rules restrict any use of the information to criminally investigate or prosecute any alcohol or drug abuse patient.[facility] CenterIn the event this information is protected by the Federal Confidentiality of Alcohol and Drug Abuse Patient Records regulations: The Federal rules restrict any use of the information to criminally investigate or prosecute any alcohol or drug abuse patient.[facility] CenterIn the event this information is protected by the Federal Confidentiality of Alcohol and Drug Abuse Patient Records regulations: The Federal rules restrict any use of the information to criminally investigate or prosecute any alcohol or drug abuse patient.[facility] Reason for Visit (unrecogniz ed section and content) ReasonCommentsAnemiaNew patient consultationReasonCommentsResults, LabReason CommentsBenefits InvestigationReasonCommentsAnemiaSpecialtyDiagnoses / ProceduresReferred By ContactReferred To Contact Diagnoses Iron deficiency anemia due to chronic blood loss Procedures IRON SUCROSE INJECTION PER 1 MG Henry Walker MD [address] [place] [address] [address] [place] [address] Referral IDStatusReasonStart DateExpiration DateVisits RequestedVisits [id number] for [id number] IDStatus ReasonStart DateExpiration DateVisits RequestedVisits [id number] month follow upReasonCommentsAnemiaFollow upReasonCommentsAnemia2 month follow up ReasonCommentsPatient UpdateReasonCommentsAnemia3 month follow upReasonComments IV IronSpecialtyDiagnoses / ProceduresReferred By ContactReferred To Contact Diagnoses Iron deficiency anemia due to chronic blood loss Procedures IRON SUCROSE INJECTION PER 1 MG Daksha Bridges PA-C [address] [place] [address] [place] [address] [address] [place] [address] Referral IDStatusReasonStart DateExpiration DateVisits RequestedVisits [id number] 3b chronic kidney diseaseReasonCommentsLab OrdersReasonCommentsTransient Ischemic AttackReasonOnset DateCommentsResults, Lab01/09/2025ReasonOnset DateComments labs/follow up04/11/2025 INFORMATION SOURCE (unrecogn ized section and content) DATE CREATED AUTHOR 03/30/2023 [facility] DATE CREATED AUTHOR AUTHOR'S ORGANIZ ATION 05/12/2023 [facility] DATE CREATED AUTHOR AUTHOR'S ORGANIZ ATION 03/27/2025 [facility] DATE CREATED AUTHOR AUTHOR'S ORGANIZ ATION 03/28/2025 [facility] DATE CREATED AUTHOR AUTHOR'S ORGANIZ ATION 04/01/2025 [facility] DATE CREATED AUTHOR AUTHOR'S ORGANIZ ATION 05/10/2025 [facility] DATE CREATED AUTHOR AUTHOR'S ORGANIZ ATION 06/09/2025 [facility] DATE CREATED AUTHOR AUTHOR'S ORGANIZ ATION 07/13/2025 [facility] DATE CREATED AUTHOR AUTHOR'S ORGANIZ ATION 08/04/2025 [facility] DATE CREATED AUTHOR AUTHOR'S ORGANIZ ATION 08/09/2025 [facility] Inactive Administered Medications - up to 3 most recent administrations Administered Medications (un recognized section and content) Medication OrderMAR ActionAction DateDoseRateSite iron sucrose 300 mg in NaCl 0.9% 250 mL (VENOFER) 300 mg, INTRAVENOUS, at 166.67 mL/hr, Administer over 90 Minutes, ONCE, 1 dose, On [facility] 02/18/24 at 1000, Please conduct a 30 minute post dose observation. Refrigerate New Bag/Syringe/Ocourj4902/18/2024 10:13 AM [id number] mg166.67 mL/hrMedication Order MAR ActionAction DateDoseRateSite iron sucrose 300 mg in NaCl 0.9% 250 mL (VENOFER) 300 mg, INTRAVENOUS, at 166.67 mL/hr, Administer over 90 Minutes, ONCE, 1 dose, On [facility] 02/25/24 at 1030, Please conduct a 30 minute post dose observation. Refrigerate New Bag/Syringe/Vdocyw1102/25/2024 10:18 AM [id number] mg166.67 mL/hr FOR RECORDS PERTAINING TO PATIENTS [...]
[2025-10-20 08:51] LABS: Hematocrit 33.6 % (36.0-48.0); Hemoglobin 11.2 g/dL (12.0-16.0); Immature Granulocytes Abs Auto 0.03 10^3/uL (0.00-0.03); Immature Granulocytes Pct Auto 0.4 % (0.0-0.5); Lymphocytes Absolute Auto 1.6 10^3/uL (1.2-3.8); Mean Corpuscular HGB Conc 33.3 g/dL (29.9-35.2); Mean Corpuscular Hemoglobin 30.0 pg (26.7-34.0); Mean Corpuscular Volume 90.1 fL (81.0-99.0); Platelet Count 127 10^3/uL (150-450); Red Blood Count 3.73 10^6/uL (4.20-5.40); White Blood Count 6.9 10^3/uL (4.0-11.0)
[2025-10-20 10:24] LABS: Alanine Aminotransferase 26 U/L (14-59); Albumin Globulin Ratio 1.0; Albumin Level 3.3 g/dL (3.4-5.0); Alkaline Phosphatase 185 U/L (46-116); Anion Gap 13.7; Aspartate Amino Transferase 15 U/L (15-37); Blood Urea Nitrogen 43.0 mg/dL (7.0-18.0); Calcium 8.7 mg/dL (8.5-10.1); Carbon Dioxide 26.7 mmol/L (21.0-32.0); Chloride 106 mmol/L (98-107); Cholesterol 116 mg/dL (<=200); Estimated GFR (African America 52 (>=60 mL/min/1.73m^2); Estimated GFR (Non-African Ame 43 (>=60 mL/min/1.73m^2); Globulin 3.3 g/dL; Glucose 141 mg/dL (74-106); HDL Cholesterol 64 mg/dL (40-60); Potassium 4.4 mmol/L (3.5-5.1); Sodium 142 mmol/L (136-145); Total Protein 6.6 g/dL (6.4-8.2); Triglycerides 39 mg/dL (<=150); Uric Acid 3.1 mg/dL (2.6-6.0); VLDL CHOLESTEROL 7.8 mg/dL
== END 2025-10-20 08:31 | disposition home or self-care (01) ==
PROVIDERS: PCP Family Medicine; Visit Provider Family Medicine
DX: E11.22 Type 2 diabetes mellitus with diabetic chronic kidney disease (principal); N18.30 Chronic kidney disease, stage 3 unspecified; E78.2 Mixed hyperlipidemia; M10.00 Idiopathic gout, unspecified site; I12.9 Hypertensive chronic kidney disease with stage 1 through stage 4 chronic kidney disease, or unspecified chronic kidney disease; Z79.899 Other long term (current) drug therapy
CPT/HCPCS: 36415; 80053; 80061; 83036; 84550; 85025

== ENCOUNTER 2025-11-15 13:26 | Outpatient (OUT) | payer OTHER, SELFPAY ==
--- OUTSIDE RECORDS SUMMARY | 2025-11-06 05:26 | XMS_ITS | Continuity of Care Document ---
Author Organization [facility] Address [address] [place] [address] Phone Care Team Providers Care Veneer Grader Name Role Phone Candelario Sosa DO Primary Care Provider Candelario Sosa DO Attending Provider Anh Delcid NP Attending Provider [phone] Care Teams Patient Care Team Team Status: Active Member Role/Relationship Status Dates Candelario Sosa DO Primary Care Provider Active Visit Care Team Team Status: Inactive Member Role/Relationship Status Dates Candelario Sosa DO Primary Care Provider Active Start: November 01, 2025 End: November 01, 2025Daryan Sosa DOAttdestinee ProviderActiveStart: November 01, 2025 End: November 01, 2025 Patient Care Team Team Status: Inactive Member Role/Relationship Status Dates Candelario Sosa DO Primary Care Provider Active Start: November 06, 2025 End: November 06, 2025Pepepito Delcid NPAttdestinee ProviderActiveStart: November 06, 2025 End: November 06, 2025 Chief Complaint and Reason for Visit Chief Complaint Admit Date EKG, Chest 2V, D50.8 E11.9 I10 R06.00 I1 0 Z79.899 November 01, 2025 12:04pm COLTEN/INSOMNIA November 06, 2025 9:55am Reason for Visit Admit Date Essential (primary) hypertension Decembe r 2024 9:55am Insomnia November 06, 2025 9:55am Obstructive sleep apnea November 06, 025 9:55am Restless leg syndrome November 06 9:55am Type 2 diabetes mellitus wit h diabetic chronic kidney disease November 06, 2025 9:55am Allergies, Adverse Reactions, Alerts Allergen Type Severity Reaction Last Updated Verified Status acetaminophen Allergy Unknown Not allergic t o tylenol July 24, 2025 8:16am Yes Active codeine Allergy Unknown Dizziness July 24, 2025 8:16am Yes Active Social History Smoking Status Status Start Date End Date Date of Observa tion Never smoked tobacco (finding) July 21, 2024 3:59pm Observation Status Observation Response Date of Response Legal Sex [facility] (finding) [facility] 1950 Family History Relationship Condition Age at Onset Recorded Date/T elsie father Malignant neoplasm Unknown motherDiabetes mellitusUnknownCongestive heart failureUnknownChronic obstructive pulmonary diseaseUnknownMalignant neoplasmUnknownCerebrovascular accident (CVA) UnknownbrotherDiabetes mellitusUnknownCongestive heart failureUnknownbrother Multiple sclerosisUnknownfatherDeceasedUnknownmotherDeceasedUnknown Problems Active Problems Problem Diagnosis/Recorded Date Onset Date Stat Carpal tunnel syndrome, right July 24, 2025 8:20 am Unknown Active Lacunar infarction July 24, 2025 8:19am Unknown Active Insomnia November 14, 2024 1:38pm Unknown A ctive Obstructive sleep apnea November 14, 2024 1:28pm Unk nown Active Type 2 diabetes mellitus wit h diabetic chronic kidney disease May 11, 2024 10:27am Unknown Active Secondary hyperparathyroidism May 11, 2024 10:27am Unknown Active Slurred speech March 11, 2023 4:13pm Unknown Ac tive Diabetes December 29, 2022 1:27pm Unknown A ctive Acute viral syndrome December 26, 2017 4:31pm Unknow n Active Chronic kidney disease, stag e III (moderate) March 11, 2023 5:53pm Unknown Active Hypertensive chronic kidney disease with stage 1 through stage 4 chronic kidney disease, or unspecified chronic kidney disease May 11, 2024 10:27am Unknown Active Hyperlipidemia December 29, 2022 1:27pm Unknown Active Restless leg syndrome November 14, 2024 1:28pm Unkno wn Active Syncope March 11, 2023 5:53pm Unknown Acti ve Degenerative disc disease, lumbar July 24, 2025 8:20am Unknown Active Essential (primary) hypertension November 14, 2024 1 :28pm Unknown Active Polyneuropathy July 24, 2025 8:20am Unknown Active Paresthesias in right hand March 11, 2023 4:13pm Unk nown Active Acute UTI July 22, 2022 8:01pm Unknown A ctive Anemia of renal disease May 11, 2024 10:27am Unknow n Active Hypertension December 29, 2022 1:27pm Unknown A ctive Hypomagnesemia July 04, 2024 2:59pm Unknown A ctive Inactive/Resolved Problems Problem Diagnosis/Recorded Date Onset Date Stat us CRESENCIO (acute kidney injury) July 22, 2022 8:01pm U nknown Resolved Hypertensive urgency March 11, 2023 5:53pm Unknown Resolved COVID-19 July 22, 2022 8:01pm Unknown R esolved Heart palpitations July 21, 2024 9:08am Unknown Resolved Slurred speech July 21, 2024 9:08am Unknown Resolved Acute bronchitis December 26, 2017 4:31pm Unknown Resolved Medications Medication Status Dose Units Route Directions Qty Days Refills S tart Date Stop Date End Date Reason(s) Instructions Adherence Allopurinol 100 mg tablet Discontinued 100 MG PO T wice daily December 29, 2022 12:00amJune 2023 10:49amRopinirole 2 mg tablet Ikemkxtxlylb0ZUTZYibnj at bedtimeFebruary 2022 12:00amJune 2023 10:53amDiclofenac Sodium 75 mg tablet,delayed release (DR/EC)Cchmkpcnxxgj77ONSF Twice dailyFebruary 2022 12:00amApril 2022 8:47amFurosemide 20 mg bwgnmcAsamqzsoxmiu19RSLRCnkox morningFebruary 2022 12:00amFebruary 2024 2:21pmOn Hold: Continue to hold, follow-up with PCP to restartAnita (Helga (Honey)) 100 % uhzocHjmtegcfdkkq2MBDBCKONYHFAUGuehr dailyFebruary 2022 12:00amApril 2022 4:44pmAscorbic Acid (Vitamin C) (Vitamin C) 500 mg TmsvmrRbwjkptkjdyj744RXPVPewyoQumcs 2022 11:00pmJune 2023 10:48amAspirin 81 mg JutsmzPrhknc08RCQYGklvnXxiaj 2022 11:00pmComplies with drug therapyCyanocobalamin (Vitamin B-12) (Vitamin B-12) 50 mcg Tablet Ujskayhkhrlr26UDMEGBlcnmPfqzd 2022 11:00pmApril 2022 8:52am Ergocalciferol (Vitamin D2) 200 mcg/mL (8,000 unit/mL) FzthiFrsgslnaqpbs455NBZJB DailyApril 2022 11:00pmJune 2023 10:46amCephalexin 500 mg capsule Ajxhciyzdcsh771RWBGKkfbc zwhzu1544Gtlrr 2022 11:00pmJune 2023 10:48amCyanocobalamin (Vitamin B-12) (Vitamin B-12) 1,000 mcg OfrqmnPmzyal1639 MCGPODailyApril 2022 11:00pmComplies with drug therapyAtorvastatin 20 mg CyiwitSfgknh41DHBHFkupvBsejroyf 2017 12:00amComplies with drug therapy Lisinopril-Hydrochlorothiazide 20-12.5 mg EnitwhYgpnti0VLQOVNqetlQzjqtnrz 2017 12:00amComplies with drug therapyBenzonatate 200 mg DoaeurtQumhwrwucuee795 MGPOTwice daily as needed for CoughFebruary 2017 12:00amFebruary 2022 1:19pmGlimepiride 2 mg JdhiltGunlaf2OHKCPgpws dailyFebruary 2017 12:00amComplies with drug therapyDoxycycline Monohydrate 100 mg Capsule Grnznwzddotm336YCAQGnegx dailyFebruary 2017 12:00amFebruary 2022 1:20pmMetformin 1,000 mg ZnrpldEbkqhsdlseml0779ZEFHZjxyq dailyFebruary 2017 12:00amSeptember 2023 12:23pmGabapentin 300 mg JedjbunOqvtiohbmcsd870 MGPOBedtimeFebruary 2017 12:00amJune 2023 10:53amAlbuterol Sulfate 90 mcg/actuation Hfa Aerosol EptbricAyrnkbqdmiyc8ASZWJUNOSNIYYDJTGUP 4-6 HOURS as needed for Shortness Of Breath Or WheezingFebruary 2017 12:00amApril 2022 4:40pmCefdinir 300 mg WripbmpLhvotrctbyaa691LYESE75PMbnvyywo 2017 12:00amFebruary 2022 1:20pmFluticasone Propionate 50 mcg/actuation [place],QvpjbrpqetUztcrkenbydd7NYMKOVRZEPFDMLPThzriLqbdumqc 2017 12:00am December 29, 2022 1:20pmAtenolol 50 mg ApyyuaDxlzpc89RBZZOqcqkUhbfzxfy 2017 12:00amComplies with drug therapyOmeprazole Magnesium (Prilosec Otc) 20 mg Tablet,Delayed Release (Dr/Ec)Ctxewlgaxocr05FWUEIcbzxTwbwwqxw 2017 12:00am May 11, 2024 10:53amPromethazine-Codeine 6.25-10 mg/5 mL NntgrUguuhwzebvpe0WL POQ4H as needed for Jqsfd0819Ecuqtpet 2017 12:00amFebruary 2022 1:21pmGabapentin 300 mg lwdewpkUcsqfhdtzvpf250JQAMMgzdb dailyJune 2023 10:50amFebruary 2024 2:23pmtakes 1 in the afternoon and 2 before bedtime Gabapentin 300 mg dmbjzhoWkminm557DIUQEksry times dailyFebruary 2024 2:21pmComplies with drug therapyCephalexin 500 mg lfrqgjsIbnoasapprbo435PCUDO0J 2170September 2021 11:00pmFebruary 2022 1:20pmCholecalciferol (Vitamin D3) (Vitamin D3) 25 mcg (1,000 unit) ydqpzyrWugsck45RGMAQWzqfpQrkupczul 2023 11:00pmComplies with drug therapyDapagliflozin Propanediol (Farxiga) 10 mg zuflfsJfpevpvggysk16QORUOtkigGzdihhfcm 2023 11:00pmFebruary 2024 2:21pmOn Hold: Hold until seen by PCP. discuss alternative therapy Cholecalciferol (Vitamin D3) 125 mcg (5,000 unit) hirsrxmZyhlnjyzdsry502UWMXE DailyJun2023 11:00pmSeptember 2023 11:26amAscorbate Calcium (Vitamin C) 500 mg ejftkwBebkql967VSHNNatrvRxth 2023 11:00pmComplies with drug therapyAllopurinol 300 mg vjjbezOnpbkh353JMWGNohbhZdoa 2023 11:00pm Complies with drug therapySitagliptin Phosphate (Januvia) 50 mg gvipjoFvicse81ZF PODailyJun2023 11:00pmComplies with drug therapyOmeprazole 20 mg capsule,delayed release(DR/EC)Vnqfpm66PSVNHfnvlXpax 25th, 2024 11:00pmComplies with drug therapyMagnesium Oxide 400 mg magnesium mgfhxqRclssx605ILNKZuucr daily May 10, 2024 11:00pmComplies with drug therapyRopinirole 2 mg schjmuPqtyrk8YT PODaily at bedtimeJun2023 11:00pmComplies with drug therapyResmetirom (Rezdiffra) 80 mg jalhbaLwoerg96YQKCYawfePgje 2023 11:00pmComplies with drug therapyBaclofen 10 mg vlwairVfrhdt5RWEWCdhrs at bedtimeJuly 04, 2025 11:00pmComplies with drug therapyPioglitazone 15 mg oztxadOgdmke34MTDDSqhpf July 04, 2025 11:00pmComplies with drug therapyLoratadine (Claritin) 10 mg hlmeqsBehefc48HIOIHgpmzMrrvxulvi 7th, 2025 11:00pmComplies with drug therapy Immunizations Immunization Event Date Not Given Reason Dose Number Rn Outpatient Surgery Lot Number Reason(s) Given Vaccine Information Statement (VIS) Detail Administration Location COVID-19 mRNA, Comirnaty ([employer]) January 14 COVID-19 mRNA, Comirnaty ([employer])February 05OVID-19 mRNA, Comirnaty ([employer])August 13, 2021 Procedures Procedure Date Performed Status XR chest 2V* November 01, 2025 12:35pm comp leted XR shoulder RT min 2V* November 01, 2025 12:36 pm completed Relevant Diagnostic Tests and/or Laboratory Data Laboratory Results Test Collection Date/Time Result Date/Time Result Interpretation Reference Range Result Comment Performing Site Corrected White Blood Count November 01, 2025 12:30pm November 01, 2025 12:48pm 6.4 10*3/uL 3.8-11.6F[facility] [id number] [address] [place] [address] 47981Ebbzexckewi WBC CountDecember 2024 12:30pmDecember 2024 12:48pm6.4 10*3/uL3.8-11.6FBet[facility] [id number] [address] [facility] [address]Jiq Blood CountDecember 2024 12:30pmDecember 2024 12:48pm3.96 10*6/uL3.60-5.00[facility] [id number] [address] [place] [address] 16424CepyfkbgaoEthidogf 2024 12:30pmDecember 2024 12:48pm11.7 g/dLBelow low jpysxe10.8-15.4FBet[facility] [id number] [address] [place] [address] 32390JmbvqjigxwZettixxi 2024 12:30pmDecember 2024 12:48pm34.5 %34.0-46.4F[facility] [id number] [address] [place] [address] 42887Fwqm Corpuscular VolumeDecember 2024 12:30pmDecember 2024 12:48pm87.1 lB86-706XxxchnmjeTuscarawas Hospital Ctr [id number] [address] [facility] 92523Ewkb Corpuscular HemoglobinDecember 2024 12:30pmDecember 2024 12:48pm29.6 pg24.7-34.3FBet[facility] [id number] [address] [place] [address] 14576Gmhw Corpuscular Hemoglobin ConcentDecember 2024 12:30pm November 01, 2025 12:48pm34.0 g/dL32.0-35.0[facility] [id number] [address] [facility] 31342Dwe Cell Distribution WidthDece2024 12:30pmDeceer 2024 12:48pm17.1 %Above high .9-15.3F[facility] [id number] [address] [facility] [address]Noaqpdls CountDece2024 12:30pmDeceer 2024 12:10xa178 10*3/uLBelow low cgorao089-093FuhjotfroTuscarawas Hospital Ctr [id number] [address] [facility] 87665Qovx Platelet VolumeDe2024 12:30pmDece2024 12:48pm7.1 fL6.3-10.7FBet[facility] [id number] [address] [facility] 10361Gmkgojqosor (%) (Auto)November 01, 2025 12:30pmDece2024 12:48pm71.9 %.[facility] [id number] [address] [facility] 34017Pflzokzyomn (%) (Auto)November 01, 2025 12:30pmDece2024 12:48pm21.9 %.[facility] [id number] [address] [facility] 23168Jbllpzkma (%) (Auto)November 01, 2025 12:30pmDecemb2024 12:48pm3.4 %.[facility] [id number] [address] [facility] [address]Wqafkfqsosn (%) (Auto)November 01, 2025 12:30pmDecemb2024 12:48pm2.4 %.[facility] [id number] [address] [facility] [address]Jufyieute (%) (Auto)November 01, 2025 12:30pmDecember 2024 12:48pm0.4 %.[facility] [id number] [address] [facility] 51928Fyiibschm RBC Relative Count (auto)November 01, 2025 12:30pm November 01, 2025 12:48pm0.0 /100{WBC}0-0.5FBet[facility] [id number] [address] [place] 4223870Neutrophils # (Auto)November 01, 2025 12:30pmDecember 2024 12:48pm4.6 10*3/uL1.8-7.7FBet[facility]da [facility] [id number] [address] [place] 4223870Lymphocytes # (Auto)November 01, 2025 12:30pmDecember 2024 12:48pm1.4 10*3/uL1.00-4.8[facility] [id number] [address] [place], [place] [address]Monocytes # (Auto)November 01, 2025 12:30pmDecember 2024 12:48pm0.2 10*3/uL0.0-0.8[facility] [id number] [address] [place] [address]3870Eosinophils # (Auto)November 01, 2025 12:30pmDecember 2024 12:48pm0.2 10*3/uL0.0-0.45[facility] [id number] [address] [place], [place] [address]Basophils # (Auto)November 01, 2025 12:30pmDecember 2024 12:48pm0.0 10*3/uL0.0-0.2FBet[facility] [id number] [address] [place] [address] 794[address]Oicbast LevelDece2024 12:30pmDecember 2024 1:06oa555 mg/dLAbove high taihye80-817ZDU recommended reference rangeRandom Glucose Reference Range is dependent on time and content of last meal. Glucose of more than 200 mg/dL in a nonstressed, ambulatory subject supports the diagnosisof Diabetes Mellitus.[facility] [id number] [address] [facility] 234[address]Uekeo Urea NitrogenDece2024 12:30pmDecember 2024 1:22pm36 mg/dLAbove high normal7-25[facility] [id number] [address] [facility] 88[address]VcsknxmbvfMzkyyfuo 17th, 2025 12:30pmDecember 2024 1:22pm 1.21 mg/dLAbove high normal0.60-1.20[facility] [id number] [address] [facility] 57343Ufzvzcejk GFR (CKD-EPI)November 01, 2025 12:30pmDecemb2024 1:22pm46.448 mL/MinTuscarawas Hospital Ctr [id number] [address] [facility] [address]Fzndhq LevelDece2024 12:30pmDecemb2024 1:32ox508 mmol/T245-790EvoxupgrmTuscarawas Hospital Ctr [id number] [address] [facility] [address]Qimevsgbq LevelNovember 01, 2025 12:30pmDecemb2024 1:22pm4.7 mmol/L3.5-5.1FBet[facility] [id number] [address] [facility] 835[address]Mkaeynxt LevelDe2024 12:30pmDecemb2024 1:07td068 mmol/LAbove high ksgexo13-895VvdllozqbTuscarawas Hospital Ctr [id number] [address] [facility] [address]Oohsro Dioxide LevelDece2024 12:30pmDecember 2024 1:22pm30.4 mmol/L21.0-31.0[facility] [id number] [address] [facility] 77292Tdhdx GapDece2024 12:30pmDecember 2024 1:22pm 10.3 mEq/L6.0-15.0[facility] [id number] [address] [facility] 15468Gqaorxh LevelDece2024 12:30pmDecember 2024 1:22pm8.9 mg/dL8.6-10.3F[facility] [id number] [address] [facility] [address]24[address]Tufpn Creatine KinaseDece2024 12:30pmDece2024 1:58hb798 U/Y41-302AaozxsvemTuscarawas Hospital Ctr [id number] [address] [place] [address] 39938Umyqmbtm Kinase MBDece2024 12:30pmDecemb2024 1:28pm11.8 ng/mLAbove high normal0.6-6.3FBet[facility] [id number] [address] [place] [address] 38396Qcomrdpp Kinase MB Relative IndexDece2024 12:30pm November 01, 2025 1:28pm6.6 %Above high normal0.00-2.50[facility] [id number] [address] [place] [address] 48848Zxqprvpw I High SensitivityDece2024 12:30pmDecemb2024 1:15pm5 ng/L0-15The Troponin units of report have been changed to meet the Chest Pain Accreditation requirement, element EC5.M1l2. Troponin units are changed from pg/ml to ng/L. Also, the decimal is removed and results are in whole numbers.[facility] [id number] [address] [place] [address] 44101Qnvmwuun Creatinine Clearance (ChemDeceer 2024 12:30pm November 01, 2025 1:22pmN/[facility] [id number] [address] [place] [address] Diagnostic Imaging Reports Author Sharad Robles [facility] HospitalAuthoredDecember 2024 3:18pmReport Dictated Date/TimeDictated ByStatusRadiology ReportDece2024 3:18pm Sharad Robles , DOcompletedFCOREY HOS[facility]ITAL [facility] [place] [address] [place] [address] XRay Report Signed Patient: Anh Tejeda MR#: [id number] : 1950 Acct:[id number] Age/Sex: 74 / F ADM Date: 5 Loc: Room: Type: [facility] Attending Dr: Candelario Sosa DO Copies to: Candelario Sosa DO~ Ordering Provider: Candelario Sosa DO Date of Service: 11/01/25 XR/XR chest 2V*: D50.8,E11.9,I10,R06.00,I10,Z79 ([id number]) XR/XR shoulder RT min 2V*: D50.8,E11.9,I10,R06.00,I10,Z79 Plain film chest 2 view HISTORY: Shortness of breath with exertion COMPARISON: 07/21/2024 FINDINGS: SUPPORT DEVICES: None POSTSURGICAL CHANGES: None HEART: Borderline cardiomegaly. PULMONARY ALIYAH: Minimal hilar vascular prominence MEDIASTINUM: Unremarkable LUNGS AND PLEURA: No acute lung process, pleural effusion or pneumothorax identified. Low lung volumes with mild interstitial prominence. Mild atelectasis. BONY STRUCTURES: Extensive thoracic spondylosis. ADDITIONAL FINDINGS None XR/XR chest 2V* IMPRESSION: Low lung volumes with basilar interstitial prominence. Mild atelectasis. Component of mild edema may be present. 3 views of the right shoulder Adequate bony alignment without acute displaced fracture or significant degeneration. IMPRESSION: Unremarkable exam. Impression dictated by: Sharad Robles M.D. 11/01/2025 3:20 PM Dictation Location: [place] [address] Transcribed By: [facility] 11/01/25 1520 Dictated By: Sharad Robles DO 11/01/25 1518 Signed By: <Electronically signed by Sharad Robles DO in OV> 11/01/25 1520 Vital Signs Vital Reading Result Reference Range Collection Date/Time Height 62 [in_i] November 06, 2025 10:86etVqjirw63.79 kgDecember 2024 10:10amHeart Rate84 /lwr00-822Emcvjplk 2024 10:10amOxygen saturation by Pulse ziukwuxk92 % 95-100December 2024 10:10amBP Tgqbfkwq103 mm[Hg]100-140December 2024 10:10amBP Mftgzelrz36 mm[Hg]60-100December 2024 10:10amBMI (Body Mass Index)40.2 kg/e2Fnycqtuz 2024 10:10am Advance Directives Advance Directive Response Recorded Date/ Time Advance Directives No September 24, 2017 12:08pm Insurance Providers Guarantor Anh Delong Nikhil Address [address] [facility] [address]Mftevfq Info.Home Phone: Coverage Status Update:2025 Payer Group Member ID Coverage Type Subscriber Relationship to Subscriber Effective Date Expiration Date Medicaid [id number] S Nikhil Id: [id number] [address] [facility] [address] Home Phone: Email: [email or web address] [id number] Baljeet Nikhil Id: [id number] [address] [facility] [address] Home Phone: Email: [email or web address] M[facility] PFFS Id: [id number] S Nikhil Id: [id number] [address] [facility] [address] Home Phone: Email: [email or web address] MCR PFFS F67XMJvadyEhanq S Nikhil Id: [id number] [address] [facility] [address] Home Phone: Email: [email or web address] 100% 05-11-25 [place] [address] Work Phone: [phone] 7380nullPsPlan A Drink 2024 Encounters Encounter Location(s) Arrival/Admit Date Discharge/Departure Date Discharge/Departure Disposition Provider(s) Departed Clinical -[facility] November 01, 2025 12:04pm November 01, 2025 12:05pm Discharged to home care or self care (routine discharge) Candelario Sosa DO Departed Physician/ Provider Office Visit -[facility] November 06, 2025 9:55am November 06, 2025 10:25am Discharged to home care or self care (routine discharge) Anh Delcid NP Recent Diagnosis Onset Date Admit Date Essential (primary) hypertension Unknown November 06, 2025 9:55am Insomnia Unknown November 06, 025 9:55am Obstructive sleep apnea Unknown November 06, 2025 9:55am Restless leg syndrome Unknown October 172024 9:55am Type 2 diabetes mellitus wit h diabetic chronic kidney disease Unknown November 06, 2025 9:55am Assessments Diagnosis Onset Date Resolution Status Admit Date Essential (primary) hypertension acuteDecemb2024 9:55amInsomniaacuteDecember 2024 9:55am Obstructive sleep apneaacuteDeceer 2024 9:55amRestless leg syndromeacute November 06, 2025 9:55amType 2 diabetes mellitus with diabetic chronic kidney diseaseacuteDecemb2024 9:55am Plan of Treatment Author Anh Delcid [facility]Aut[facility] 20[facility] 10:10amFortunately, the patient is using and benefiting from treatment. Download was reviewed with patient, Current pressure is controlling apnea well, And we will make no changes at this time. A prescription was sent to the [employer] for new supplies throughout the year. She was encouraged to continue to use her machine nightly, throughout the entire night as this does provide clinical benefit. She will follow-up in the sleep clinic in 1 year or sooner if problems. Studies have shown that controlling sleep apnea significantly improves glycemic control and insulin resistance, thus allows for better management of diabetes. Patient continues to follow with her PCP regarding her RLS. She takes gabapentin 300mg TID and Requip to help with RLS symptoms. She also has CKD Stage 3 which is likely the underlying cause of her RLS. Unfortunately, RLS can cause insomnia, and the medications that treat RLS do cause drowsiness as a SE and thus can make it difficult to get her insomnia issues under control. Patient was encouraged to continue to follow with PCP regarding her RLS and only take the lowest effective dosages to control her RLS. The patient is advised to adhere to a proper sleep hygiene schedule and to assure adequate total sleep time of approx 7-9 hours. The patient is instructed to: Not take naps until the insomnia is controlled; Not be awake in bed for more than 20 minutes; Not use the bed for reading, watching TV, working, or resting if unable to sleep. If he wakes up before her wake up time, avoid triggers that signal wakefulness in the brain (i.e. food, activity, light); instead, she is advised to do something to facilitate sleep (read something boring, meditate, listen to music). Obstructive sleep apnea can significantly worsen blood pressure control. Patients with untreated sleep apnea have higher average blood pressures, but also have substantial variability in blood pressure day to day and even hour to hour. Treating underlying sleep apnea often reduces mean systolic and diastolic blood pressure, but can also substantially reduce variability between measurements. Future Tests Future scheduled test information is unavailable Pending Tests Pending diagnostic test information is unavailable Future Visits Future appointment information is unavailable Future Procedures Future procedure information is unavailable Future Medications Future medication information is unavailable Patient Instructions Patient instructions are unavailable
--- OUTSIDE RECORDS SUMMARY | 2025-11-14 11:00 | XMS_ITS | Encounter Summary ---
Author Organization [facility] Address [address] [place] [address] Care Team Providers Care Waste Picker Name Role Phone Nisa Shepherd CNP Primary Care Provider +1- [phone] Source Comments In the event this information is protected by the Federal Confidentiality of Alcohol and Drug AbusePatient Records regulations: The Federal rules restrict any use of the information to criminally investigate or prosecute any alcohol or drug abuse patient.[facility] Reason for Visit * ReasonCommentsEstablished Patient Encounter Details DateTypeDepartmentCare Team (Latest Contact Info)Iqvptemcopo67/30/2025 11:00 AM ESTVisit (SP) Office Hematology/Oncology [address] [place] [address] [place] [address] Sonja Sue APRN.[address] [place] [address] Iron deficiency anemia, unspecified iron deficiency anemia type (Primary Dx); Anemia in stage 3a chronic kidney disease (HCC); Thrombocytopenia; Other fatigue Social History Tobacco UseTypesPacks/DayYears UsedDateSmoking Tobacco: NeverPassive Smoke Exposure: PastSmokeless Tobacco: NeverAlcohol UseStandard Drinks/WeekComments Never0 (1 standard drink = 0.6 oz pure alcohol)PHQ-2AnswerDate RecordedPHQ-2 gutfn0654Area Deprivation IndexAnswerDate RecordedNational Score (1-100), lower number is lower qtyz775605/01/2023State Score (1-10), lower number is lower tyse9793Data from: https://www.neighborhoodatlas.medicine.[facility]/. Last address used for [address]CommentsNoSex and Gender InformationValueDate RecordedSex Assigned at BirthNot on fileLegal Sex Cpycky2409/22/2022 10:39 AM ESTGender IdentityNot on fileSexual OrientationNot on filedocumented as of this encounter Last Filed Vital Signs Vital SignReadingTime TakenCommentsBlood Onlkaidk085/7111/14/2025 10:37 AM EST Knzpo780811/14/2025 10:37 AM MGZFgwinzincjy68.5 ??C (97.7 ??F)11/14/2025 10:37 AM ESTRespiratory Gudk7007 10:37 AM ESTOxygen Hfnugpyaym34%11/14/2025 10:37 AM ESTInhaled Oxygen Concentration--Nqrbfp393.8 kg (224 lb 6.9 oz)11/14/2025 10:37 AM ESTHeight--Body Mass Index40.7806 10:47 AM EDTdocumented in this encounter Progress Notes * Sonja Sue, DEBORAH.SYSTEMS ADMINISTRATION ANALYST - 11/14/2025 10:33 AM EST Hematology Progress Note PATIENT NAME: Anh Tejeda [facility] NO.: [id number] ATTENDING PHYSICIAN: Henry Walker MD DATE OF SERVICE: 11/14/2025 This note was copied from prior heme/onc encounter from 08/07/2025. The patient's medications, allergies, past medical/surgical hx, family hx, ROS, and physical exam have all been reviewed and updatedas appropriate. The interval history and assessment/plan content have been modified and are specific to today's (11/14/2025) purpose for the visit. CHIEF COMPLAINT: Follow up for anemia Diagnosis: NAINA Stage 3a CKD Treatment: Venofer x 3 doses 10/2022, again in January 2024 Interval History: Anh returns for 3 month follow up. The patient is a 74-year-old female with iron deficiency anemia presenting for follow-up. The patient has a history of iron deficiency anemia and has received iron supplementation in the past, most recently in 02/2024. Today, she reports ongoing fatigue. She denies bleeding or abnormal bruising, noting that she does bruise but attributes this to bumping into things. She also reports significant right shoulder pain,which she states is making it difficult to use her arm. She was told yesterday that this is due to arthritis. She is scheduled to see pain management tomorrow to discuss a back procedure and to see if she can receive a cortisone injection. Current Outpatient Medications Medication Sig vit B complex no.12/niacin,B3, (VITAMIN B COMPLEX NO.12-NIACIN ORAL) Vitamin B 12 baclofen 10 mg tablet Take 5 mg by mouth once daily. loratadine (CLARITIN) 5 mg/5 mL syrup Take 5 mg by mouth as needed for cold/allergy symptoms. pioglitazone (ACTOS) 15 mg tablet diphenhydrAMINE HCl [...] No current facility-administered medications for this visit. Allergies Allergen Reactions Acetaminophen-Codeine Other: See Comments pt states she is [...] SYSTEMS +fatigue, generalized weakness PHYSICAL EXAMINATION: BP 143/71 Pulse 86 Temp 36.5 ??C (97.7 ??F) (Temporal) Resp 16 Wt 101.8 kg (224 lb 6.9 oz) SpO2 96% BMI 40.78 kg/m?? ECOG PS: 1 No exam LABS: Glucose (mg/dL) Date Value 11/14/2025 211 Potassium (mmol/L) Date Value 11/14/2025 4.7 Sodium (mmol/L) Date Value 11/14/2025 142 Chloride (mmol/L) Date Value 11/14/2025 104 CO2 (mmol/L) Date Value 11/14/2025 27 Creatinine (mg/dL) Date Value 11/14/2025 1.11 BUN (mg/dL) Date Value 11/14/2025 32 Anion Gap (mmol/L) Date Value 11/14/2025 11 Calcium, Total (mg/dL) Date Value 11/14/2025 9.0 Protein, Total (g/dL) Date Value 11/14/2025 6.4 Albumin (g/dL) Date Value 11/14/2025 4.0 Bilirubin, Total (mg/dL) Date Value 11/14/2025 0.6 Alkaline Phosphatase (U/L) Date Value 11/14/2025 167 AST (U/L) Date Value 11/14/2025 18 ALT (U/L) Date Value 11/14/2025 17 WBC Date Value Ref Range Status 11/14/2025 7.77 3.70 - 11.00 k/uL Final RBC Date Value Ref Range Status 11/14/2025 4.15 3.90 - 5.20 m/uL Final Hemoglobin Date Value Ref Range Status 11/14/2025 12.4 11.5 - 15.5 g/dL Final Hematocrit Date Value Ref Range Status 11/14/2025 37.0 36.0 - 46.0 % Final MCV Date Value Ref Range Status 11/14/2025 89.2 80.0 - 100.0 fL Final MCH Date Value Ref Range Status 11/14/2025 29.9 26.0 - 34.0 pg Final MCHC Date Value Ref Range Status 11/14/2025 33.5 30.5 - 36.0 g/dL Final RDW-CV Date Value Ref Range Status 11/14/2025 16.1 (H) 11.5 - 15.0 % Final Platelet Count Date Value Ref Range Status 11/14/2025 158 150 - 400 k/uL Final MPV Date Value Ref Range Status 11/14/2025 9.4 9.0 - 12.7 fL Final Abs Neut Date Value Ref Range Status 11/14/2025 5.37 1.45 - 7.50 k/uL Final Lymphocytes % Date Value Ref Range Status 11/14/2025 22.8 % Final Abs Lymph Date Value Ref Range Status 11/14/2025 1.77 1.00 - 4.00 k/uL Final Monocytes % Date Value Ref Range Status 11/14/2025 5.3 % Final Abs Roseau Date Value Ref Range Status 11/14/2025 0.41 <0.87 k/uL Final Abs Eosin Date Value Ref Range Status 11/14/2025 0.15 <0.46 k/uL Final Basophils % Date Value Ref Range Status 11/14/2025 0.4 % Final Abs Baso Date Value Ref Range Status 11/14/2025 0.03 <0.11 k/uL Final PATH: IMAGING: ASSESSMENT [...] unspecified iron deficiency anemia type (D50.9) Hemoglobin level overall stable at 12.4 today. MCV remains stable at 89.2. Iron panel pending. Cotninue to monitor ever 3 months. 2. Stage 3b chronic kidney disease (HCC) (N18.32) Anemia in stage 3a chronic kidney disease (HCC) (N18.31) Chronic kidney disease likely contributing to mild anemia. Renal function remains stable, and erythropoietin production is adequate. - Continue regular monitoring of renal function. - Follow-up with fleet operations manager Dr. Giles as scheduled. 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 Should this worsen, especially in the setting of anemia with normal iron stores, would need to consider further workup. Platelets are stable today. 4. Polyneuropathy: negative SPEP/MPA in 2021. Some improvement with carpal tunnel repair. Return in 3 months with repeat labs Sonja Sue APRN.CNP CC: Nisa Shepherd CNP I spent a total of 20 minutes on the date of the service which included preparing to see the patient, qpwb-fz-wkpq patient care, completing clinical documentation, performing a medically appropriate examination, counseling and educating the patient/family/caregiver, ordering medications, tests, or p rocedures, independently interpreting results (not separately reported), communicating results to the patient/family/caregiver, and care coordination (not separately reported). documented in this encounter Plan of Treatment DateTypeDepartmentCare Team (Latest Contact Info)Clnzecraprz22/24/2026 10:45 AM EDTOffice Visit [facility] [address] [place] [address] [place] [address] 3 month follow up lab02/06/2026 11:00 AM EDTVisit (SP) Office Hematology/Oncology [address] [place] [address] Sonja Sue APRN.SYSTEMS ADMINISTRATION ANALYST [address] [place] [address] 3 month follow up labNameTypePriorityAssociated DiagnosesOrder ScheduleCOMPLETE BLOOD COUNT AND DIFFERENTIALLabRoutine Iron deficiency anemia, unspecified iron deficiency anemia type Anemia in stage 3a chronic kidney disease (HCC) Thrombocytopenia Other fatigue Expected: 02/12/2026, Expires: 05/14/2026OMPREHENSIVE METABOLIC PANELLabRoutine Iron deficiency anemia, unspecified iron deficiency anemia type Anemia in stage 3a chronic kidney disease (HCC) Thrombocytopenia Other fatigue Expected: 02/12/2026, Expires: 05/14/2026FOLATE, SERUMLabRoutine Iron deficiency anemia, unspecified iron deficiency anemia type Anemia in stage 3a chronic kidney disease (HCC) Thrombocytopenia Other fatigue Expected: 02/12/2026, Expires: 05/14/2026VITAMIN F65MavHojoiiy Iron deficiency anemia, unspecified iron deficiency anemia type Anemia in stage 3a chronic kidney disease (HCC) Thrombocytopenia Other fatigue Expected: 02/12/2026, Expires: 05/14/2026FERRITINLabRoutine Iron deficiency anemia, unspecified iron deficiency anemia type Anemia in stage 3a chronic kidney disease (HCC) Thrombocytopenia Other fatigue Expected: 02/12/2026, Expires: 05/14/2026IRON AND TIBCLabRoutine Iron deficiency anemia, unspecified iron deficiency anemia type Anemia in stage 3a chronic kidney disease (HCC) Thrombocytopenia Other fatigue Expected: 02/12/2026, Expires: 05/14/2026documented as of this encounter Visit Diagnoses Diagnosis Iron deficiency anemia, unspecified iron deficiency anemia type- Primary Anemia in stage 3a chronic kidney disease (HCC) Thrombocytopenia Thrombocytopenia, unspecified Other fatigue documented in this encounter Care Teams Team MemberRelationshipSpecialtyStart DateEnd Date Nisa Shepherd CNP [facility] [place] [address] PCP - GeneralFamily Oyahzfmk88/7/22documented as of this encounter
--- OUTSIDE RECORDS SUMMARY | 2025-11-15 13:28 | XMS_ITS | Patient Health Record ---
Author Organization [facility] Address [address] [place] [address] Care Team Providers Care Store Clerk Checker Name Role Phone Sheila DOS SANTOSCandelario Primary Care Provider Unavail Regi Shane Unavailable [phone] Allergies Allergen (clinical drug ingredient) Drug/Non Drug [...] Encounters Encounter Location Date Provider Diagnosis [facility] (PODI[facility]) [address] [place] [address] [place] [address] 12/29/2024 Regi Jacinto Diabetes E11.9 Assessments Encounter Date Diagnosis (ICD Code) Assessment Notes Treatment Notes Treatment Clinical Notes Section Notes 12/29/2024 Diabetes (ICD-10 - E11.9) Plan Of Treatment No Information Insurance Providers Payer Name Payer Address Payer Phone Subscriber Number Group Number Insured Name Patient Relationship to Insured Coverage Start Date Coverage End Date [employer] [address] [place] [phone] [id number] Nikhil ZhannaivelisseSelf - patient is the [id number] 2024 Medical (General) History Medical History History ICD Code anemia arthritisdiabetesgouthigh blood pressurehigh cholesterolliver diseasekidney diseasevaricose veinsSurgical History Surgery Date(Month/Year) cholecystectomy hysterectomykneeeyecarpal tunnelskin cancer removed
--- OUTSIDE RECORDS SUMMARY | 2025-11-15 13:28 | XMS_ITS | Clinical Summary ---
Author Organization [facility] Address [address] [place] [address] Care Team Providers Care Hydraulic Chair Assembler Name Role Phone Candelario Sosa Primary Care Provider [phone] Trae Mccarty MD Unavailable [phone] Allergies Active AllergyReactionsCriticalityNoted LgjuYebhkwyxUqntmitupcxdb68/05/2023 Acetaminophen-IdllgriCjgwqVlkx92/16/2022 pt states she is unwilling to try even plain tylenol after this experience even though she states she took tylenol prior to this and had no problems PxhnnkiDxdaw22/11/2022 Upset stomach Medications MedicationSigDispense QuantityRefillsLast FilledStart DateEnd [...] mg09/29/2024ctive Active Problems ProblemNoted DateDiagnosed DateTransient ischemic ptbijk4608/16/2024alpitations 08/16/2024Syncope and /14/9221Isofykureae16/13/2024 Overview (07/20/2024): Patient also experiences chronic right handed paresthesia and pain into first digit of her 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 She also has been told she has history of sciatica on the right leg with significant neuropathy. EMGs were recommended outpatient to further evaluate paresthesia in RUE and lower extremities. Balance vjcnbmb8703/28/20246201Opxechbuwgxdpj94/13/2024 Overview (07/20/2024): She also has been told [...] not a tripping adan if applicable. Autonomic sneaspbbtnl39/13/2024eripheral oxqucyzkav41/13/2024arpal tunnel syndrome, bilateral upper limbs03/28/2024arpal tunnel syndrome [...] on this for now. Mixed hearing loss, zqumjwlbe43/27/2024Tympanic membrane central perforation, dytjxwepv98/27/2024cquired hallux valgus of right foot02/02/2024cquired hammer toe deformity of lesser toe of right foot02/02/2024iabetes ysjposkl31/19/2024 Neuropathy of lower oikdunhfw18/19/2024Type 2 diabetes mellitus without complication, without long-term current use of xhrxapo8302/02/2024Stage 3b chronic kidney ehjktjn1201/29/2024Iron deficiency anemia due to chronic blood loss 10/03/2022GERD (gastroesophageal reflux disease)09/05/2010History of malignant neoplasm of skin09/05/20102634Ovmztxqeyhk49/21/2010symptomatic varicose veins 09/05/2010Depressive asgyacoz10/21/2010Essential erswskssdezj27/21/2010 Family History Medical HistoryRelationNameCommentsDiabetesBrotherHeart diseaseBrother HypertensionBrotherStrokeBrotherCancerFatherHypertensionFatherCancerMother DiabetesMotherHeart diseaseMotherHypertensionMotherStrokeMotherRelationName WqkhwhUyvaqastKmswxsha0BeolatLddstlgeVpnxvqDdsqzyqs Social History Tobacco UseTypesPacks/DayYears UsedDateSmoking Tobacco: NeverSmokeless Tobacco: Never Tobacco Cessation:Counseling Given: Not Answered Alcohol UseStandard Drinks/WeekCommentsDefer0 (1 standard drink = 0.6 oz pure alcohol)caffeine intake: 1-2 cups per dayCommentsUnknownSex and Gender InformationValueDate RecordedSex Assigned at YfeiwOngkbz99/26/2024 11:23 AM EST Legal FbqGmmdoc85/15/2023 7:09 PM EDTGender BrmivlsrAltxhl27/26/2024 11:23 AM ESTSexual OrientationChoose not to avlfsotn78/26/2024 11:23 AM EST Last Filed Vital Signs Vital SignReadingTime TakenCommentsBlood Ovbyvhhf084/68003/06/2025 9:47 AM EDT Lgsra620508/16/2024 8:51 AM MQGDgeyxcqgxly15.5 ??C (97.7 ??F)02/15/2024 10:12 AM EDTRespiratory Rate--Oxygen Eomcdbhrrs28%03/29/2024 2:36 PM EDTInhaled Oxygen Concentration--Zxmfzn82.4 kg (217 lb)03/06/2025 9:47 AM YLJDffljl956.9 cm (5' 1 )03/06/2025 9:47 AM EDTBody Mass Teavt146103/06/2025 9:47 AM EDT Plan of Treatment Health MaintenanceDue DateLast DoneCommentsDiabetes: Hemoglobin A1C1948 Diabetes: Retinopathy Refqlhpdq21/14/1959Diabetes: Urine Protein Screening 1967Pneumococcal Vaccine: 65+ Years (2 of 2 - PCV)/11/2017 Influenza Vaccine (#1)/07/2024, 11/25/2023, 08/27/2022, Additional history rpkeuhZdrrxutjdotWhmcmcjuyzna39/28/2022Colorectal Cancer Screening DiscontinuedCT ColonographyDiscontinuedFIT-DNADiscontinuedFITDiscontinuedFOBT DiscontinuedSigmoidoscopyDiscontinued Insurance Care Teams Team MemberRelationshipSpecialtyStart DateEnd Candelario Sosa [address] [place] [address] [facility] - [facility] Trae Mccarty MD [address] [place] [address] PCP - [facility]11/16/23
--- OUTSIDE RECORDS SUMMARY | 2025-11-15 13:28 | XMS_ITS | Encounter Summary ---
Author Organization [facility] Address [address] [place] [address] Care Team Providers Care Electromatic Typist Name Role Phone Nisa Shepherd CNP Primary Care Provider [phone] Source Comments In the event this information is protected by the Federal Confidentiality of Alcohol and Drug AbusePatient Records regulations: The Federal rules restrict any use of the information to criminally investigate or prosecute any alcohol or drug abuse patient.[facility] Reason for Visit * ReasonCommentsResults Encounter Details DateTypeDepartmentCare Team (Latest Contact Info)Ceyzriivduy40/30/2025Telephone Cancer Appts [address] [place] [address] Sonja Sue, DEBORAH.[address] [place] [address] Results Social History Tobacco UseTypesPacks/DayYears UsedDateSmoking Tobacco: NeverPassive Smoke Exposure: PastSmokeless Tobacco: NeverAlcohol UseStandard Drinks/WeekComments Never0 (1 standard drink = 0.6 oz pure alcohol)PHQ-2AnswerDate RecordedPHQ-2 jgujp2014Area Deprivation IndexAnswerDate RecordedNational Score (1-100), lower number is lower iosd382305/01/2023State Score (1-10), lower number is lower onnh9683Data from: https://www.neighborhoodatlas.medicine.[facility].edu/. Last address used for [address]CommentsNoSex and Gender InformationValueDate RecordedSex Assigned at BirthNot on fileLegal Sex Fdeznu9609/22/2022 10:39 AM ESTGender IdentityNot on fileSexual OrientationNot on filedocumented as of this encounter Miscellaneous Notes * Telephone Encounter - Smitha Mcmahan RN - 11/15/2025 9:02 AM EST Pt notified of normal iron studies. RTC as planned Smitha Mcmahan RN * Telephone Encounter - Trudy Santamaria - 11/14/2025 11:06 AM EST Images from the original note were not included. documented in this encounter Plan of Treatment DateTypeDepartmentCare Team (Latest Contact Info)Eebjubihcaw88/24/2026 10:45 AM EDTOffice Visit [facility] [address] [place] [address] [place] [address] 3 month follow up lab02/06/2026 11:00 AM EDTVisit (SP) Office Hematology/Oncology [address] [facility] [address] Sonja Sue APRN.SCHOOL OFFICE ASSISTANT [address] [place] [address] [place] [address] 3 month follow up labdocumented as of this encounter Visit Diagnoses Not on filedocumented in this encounter Care Teams Team MemberRelationshipSpecialtyStart DateEnd Date Nisa Shepherd, [facility] [place] [address] PCP - GeneralFamily Hhmynlth03/7/22documented as of this encounter
--- OUTSIDE RECORDS SUMMARY | 2025-11-15 13:28 | XMS_ITS | Encounter Summary ---
Author Organization [facility] Address [address] [place] [address] Care Team Providers Care Horse Racing Analyst Name Role Phone Nisa Shepherd CNP Primary Care Provider +1- [phone] Source Comments In the event this information is protected by the Federal Confidentiality of Alcohol and Drug AbusePatient Records regulations: The Federal rules restrict any use of the information to criminally investigate or prosecute any alcohol or drug abuse patient.[facility] Encounter Details DateTypeDepartmentCare Team (Latest Contact Info)Lnutoscfaky63/30/2025Travel Social History Tobacco UseTypesPacks/DayYears UsedDateSmoking Tobacco: NeverPassive Smoke Exposure: PastSmokeless Tobacco: NeverAlcohol UseStandard Drinks/WeekComments Never0 (1 standard drink = 0.6 oz pure alcohol)PHQ-2AnswerDate RecordedPHQ-2 srohy8824Area Deprivation IndexAnswerDate RecordedNational Score (1-100), lower number is lower psdx718705/01/2023State Score (1-10), lower number is lower obks2253Data from: https://www.neighborhoodatlas.medicine.[facility].edu/. Last address used for w[address]05/01/2023CommentsNoSex and Gender InformationValueDate RecordedSex Assigned at BirthNot on fileLegal Sex Yotlgr8909/22/2022 10:39 AM ESTGender IdentityNot on fileSexual OrientationNot on filedocumented as of this encounter Plan of Treatment DateTypeDepartmentCare Team (Latest Contact Info)Quwadwnvisd84/24/2026 10:45 AM EDTOffice Visit [facility] [address] [place] [address] [place] [address] 3 month follow up lab02/06/2026 11:00 AM EDTVisit (SP) Office Hematology/Oncology [address] [facility] [place] [address] Sonja Sue APRN.INTERIOR WALL ASSEMBLER [address] [place] [address] [place] [address] 3 month follow up labdocumented as of this encounter Visit Diagnoses Not on filedocumented in this encounter Care Teams Team MemberRelationshipSpecialtyStart DateEnd Date Nisa Shepherd INTERIOR WALL ASSEMBLER [address] [place] [address] [place] [address] PCP - GeneralFamily Jppguurv62/7/22documented as of this encounter
--- OUTSIDE RECORDS SUMMARY | 2025-11-15 13:28 | XMS_ITS | Clinical Summary ---
Author Organization [facility] Address [address] [place] [address] Care Team Providers Care Dean Of [facility] Name Role Phone Nisa Shepherd CNP Primary Care Provider [phone] Allergies Active AllergyReactionsCriticalityNoted DateCommentsAcetaminophen-CodeineOther: See LwfznevnAwpf90/16/2022 pt states she is unwilling to try even plain tylenol after this experience even though she states she took tylenol prior to this and had no problems CodeineOther: See Gmxugjja45/11/2022 Upset stomach Medications MedicationSigDispense QuantityRefillsLast FilledStart DateEnd [...] Problems ProblemNoted DateDiagnosed DateStage 3b chronic kidney xgqdkvh6701/29/2024Iron deficiency anemia due to chronic blood loss10/03/2022 Encounters DateTypeDepartmentCare XtgcBojqfdwvpnm49/30/2025 11:00 AM ESTVisit (SP) Office Hematology/Oncology [address] [place] [address] [place] [address] Sonja Sue, ASSISTANT BASEBALL COACH.COLOR MAKING SUPERVISOR Iron deficiency anemia, unspecified iron deficiency anemia type (Primary Dx); Anemia in stage 3a chronic kidney disease (HCC); Thrombocytopenia; Other bpihsot6911/14/2025Telephone Cancer Appts [address] [place] [address] Sonja Sue, ASSISTANT BASEBALL COACH.COLOR MAKING SUPERVISOR Gqmksit6811/14/2025Travelfrom Last 3 Months Immunizations ImmunizationAdministration DatesNext Dueinfluenza (HD-IIV3) vaccine, age 65+ yr, high dose, trivalent, PF (FLUZONE HIGH-DOSE)09/18/2016influenza (HD-IIV4) vaccine, age 65+ yr, high dose, quadrivalent, PF (FLUZONE HIGH-DOSE)11/25/2023, 08/27/2022,09/26/2021influenza (IIV3) vaccine, trivalent (AFLURIA, FLULAVAL, FLUVIRIN, FLUZONE)10/17/2015influenza (IIV4) vaccine, age 6 mo - 64 yr, quadrivalent, PF (AFLURIA, FLUARIX, FLULAVAL, FLUZONE)08/16/2018influenza (LAIV) vaccine, nasal, unspecified dkknocggcpo29/01/2018pneumococcal polysaccharide (PPV23) vaccine, 23 valent (PNEUMOVAX 23)08/16/2018 Family History Medical HistoryRelationCommentsLung CancerFatherCongenital heart diseaseMother RelationStatusCommentsFatherMother Social History Tobacco UseTypesPacks/DayYears UsedDateSmoking Tobacco: NeverPassive Smoke Exposure: PastSmokeless Tobacco: Never Tobacco Cessation:Counseling Given: Not Answered Alcohol UseStandard Drinks/WeekCommentsNever0 (1 standard drink = 0.6 oz pure alcohol)PHQ-2AnswerDate RecordedPHQ-2 jpojb6854Area Deprivation Index AnswerDate RecordedNational Score (1-100), lower number is lower risk80 05/01/2023State Score (1-10), lower number is lower qcmx8423Data from: https://www.neighborhoodatlas.medicine.[facility].edu/. Last address used for e[address]CommentsNoSex and Gender Information ValueDate RecordedSex Assigned at BirthNot on fileLegal PxiWuxnpz71/07/2022 10:39 AM ESTGender IdentityNot on fileSexual OrientationNot on file Last Filed Vital Signs Vital SignReadingTime TakenCommentsBlood Ctmqttzb453/7111/14/2025 10:37 AM EST Szmgx560311/14/2025 10:37 AM CCTJhledggyizs04.5 ??C (97.7 ??F)11/14/2025 10:37 AM ESTRespiratory Mxbn8615 10:37 AM ESTOxygen Unnmekuiln62%11/14/2025 10:37 AM ESTInhaled Oxygen Concentration--Luwifk626.8 kg (224 lb 6.9 oz)11/14/2025 10:37 AM ILWDqpnbj778 cm (5' 2.21 )04/25/2025 10:47 AM EDTBody Mass Index40.78 04/25/2025 10:47 AM EDT Plan of Treatment DateTypeDepartmentCare Team (Latest Contact Info)Kkdasxwsfjq92/24/2026 10:45 AM EDTOffice Visit [facility] [address] [place] [address] 3 month follow up lab02/06/2026 11:00 AM EDTVisit (SP) Office Hematology/Oncology [address] [place] [address] Sonja Sue APRN.COLOR MAKING SUPERVISOR [address] [place] [address] 3 month follow up labHealth MaintenanceDue DateLast DoneCommentsAnnual PCP Team Chronic Disease Visit1966Anxiety Bbkrzjvxt01/14/1967Depression Screening 1966Hepatitis C Tjxrlwihj33/14/1967DTaP,Tdap,Td Vaccine (1 - Tdap) 1967Shingrix Vaccine (1 of 2)1998Bone Density Aioadpeld45/14/2014 Pneumococcal Vaccine: 50+ (2 of 2 - PCV)Advance Directive Trwzmyateg32/01/2025Medicare Advantage Annual Wellness Visit11/16/2024ovid-19 Vaccine ( season)/, 02/05/2021, 01/14/2021 Influenza Vaccine (#1)/07/2024, 11/25/2023, 08/27/2022, Additional history existsHemoglobin/Xfigdnvepd47, 08/07/2025, 04/18/2025, Additional history existsSerum Kasrlruvbw59, 08/07/2025, 04/18/2025, Additional history existsDiabetes Lsuijkwjc27, 08/07/2025, 04/18/2025, Additional history existsRSV OamvupcKculckevc82/09/2024 Procedures Procedure NamePriorityDate/TimeAssociated DiagnosisCommentsVITAMIN B12 BLOOD Dixbwxv8611/14/2025 10:35 AM EST Iron deficiency anemia, unspecified iron deficiency anemia type Anemia in stage 3a chronic kidney disease (HCC) Thrombocytopenia FOLATE GQKVOOdirres67/30/2025 10:35 AM EST Iron deficiency anemia, unspecified iron deficiency anemia type Anemia in stage 3a chronic kidney disease (HCC) Thrombocytopenia FERRITIN QTCTjjfjaw57/30/2025 10:35 AM EST Iron deficiency anemia, unspecified iron deficiency anemia type Anemia in stage 3a chronic kidney disease (HCC) Thrombocytopenia CBC + DEKMUthivpz76/30/2025 10:35 AM EST Iron deficiency anemia, unspecified iron deficiency anemia type Anemia in stage 3a chronic kidney disease (HCC) Thrombocytopenia IRON + VQKXJckrbfo79/30/2025 10:35 AM EST Iron deficiency anemia, unspecified iron deficiency anemia type Anemia in stage 3a chronic kidney disease (HCC) Thrombocytopenia COMPREHENSIVE METABOLIC IOLDOAwgnzvq27/30/2025 10:35 AM EST Iron deficiency anemia, unspecified iron deficiency anemia type Anemia in stage 3a chronic kidney disease (HCC) Thrombocytopenia from Last 3 Months Results * VITAMIN B12 (11/14/2025 10:35 AM EST)ComponentValueRef RangeTest Method Analysis TimePerformed AtPathologist SignatureVitamin [id number] - 1,245 pg/mL 11/15/2025 12:46 AM [facility] LABSpecimen (Source)Anatomical Location / LateralityCollection Method / VolumeCollection TimeReceived Time BloodBLOOD SPECIMEN / UnknownVenipuncture / Ggpwdol8911/14/2025 10:35 AM EST 11/14/2025 10:35 AM EST Narrative Authorizing ProviderResult TypeResult StatusMinvera HUDDLESTON-CLABORATORYFinal ResultPerforming OrganizationAddressCity/State/ZIP CodePhone Number [facility] [address] [place], [place] [phone], * IRON AND TIBC (11/14/2025 10:35 AM EST)ComponentValueRef RangeTest Method Analysis TimePerformed AtPathologist BwtmowmhoTyon5500 - 186 ug/dL11/15/2025 12:28 AM [facility] TOTDFAL630379 - 386 ug/dL11/15/2025 12:28 AM [facility] LABTransferrin Okkhqguocx04.315.0 - 57.0 %11/15/2025 12:28 AM [facility] LABSpecimen (Source)Anatomical Location / LateralityCollection Method / VolumeCollection TimeReceived TimeBloodBLOOD SPECIMEN / UnknownVenipuncture / Hzsppuh3411/14/2025 10:35 AM EST11/14/2025 10:35 AM EST Narrative Authorizing ProviderResult TypeResult StatusMinvera Protestant HospitalCLABORATORYFinal ResultPerforming OrganizationAddressCity/State/ZIP CodePhone Number [facility] [address] [place] [address], * FOLATE, SERUM (11/14/2025 10:35 AM EST)ComponentValueRef RangeTest Method Analysis TimePerformed AtPathologist SignatureFolate>20.0>4.7 ng/mL11/15/2025 12:46 AM [facility] LABComment: A result of > 20 ng/mL is not necessarily indicative of a pathologic or treatable condition: it reflects a limitation of the test methodology. Assay reference range: 4.8 to 24.2 ng/mL. Suitable for detection of folate deficiency. Reference: Folate III (Folate III) [package insert V 1.0 Mexican]. [facility], [place], [place]: September 2015. Specimen (Source)Anatomical Location / LateralityCollection Method / Volume Collection TimeReceived TimeBloodBLOOD SPECIMEN / UnknownVenipuncture / Unknown 11/14/2025 10:35 AM EST11/14/2025 10:35 AM EST Narrative Authorizing ProviderResult TypeResult StatusMinvera Martinez Sherrie PA-CLABORATORYFinal ResultPerforming OrganizationAddressCity/State/ZIP CodePhone Number [facility] [address] [place] [phone], * (ABNORMAL) FERRITIN (11/14/2025 10:35 AM EST)ComponentValueRef RangeTest MethodAnalysis TimePerformed AtPathologist CcxhgfiqhHgsmbamx855.0(H)14.7 - 205.1 ng/mL11/15/2025 12:46 AM ESTADENA [facility] LABSpecimen (Source) Anatomical Location / LateralityCollection Method / VolumeCollection Time Received TimeBloodBLOOD SPECIMEN / UnknownVenipuncture / Wxzpsuw7211/14/2025 10:35 AM EST11/14/2025 10:35 AM EST Narrative Authorizing ProviderResult TypeResult StatusMinvera HUDDLESTON-CLABORATORYFinal ResultPerforming OrganizationAddressCity/State/ZIP CodePhone Number [facility] [address] * (ABNORMAL) COMPREHENSIVE METABOLIC PANEL (11/14/2025 10:35 AM EST)Component ValueRef RangeTest MethodAnalysis TimePerformed AtPathologist Signature Protein, Total6.46.3 - 8.0 g/dL11/14/2025 11:55 AM [facility] LABAlbumin4.03.9 - 4.9 g/dL11/14/2025 11:55 AM [facility] LABCalcium, Total9.08.5 - 10.2 mg/dL11/14/2025 11:55 AM [facility] LABBilirubin, Total0.60.2 - 1.3 mg/dL 11/14/2025 11:55 AM [facility] LABAlkaline Detpxmtawps079(H)34 - 123 U/L1 11:55 AM [facility] PYCIPG2357 - 35 U/L1 11:55 AM [facility] AUVDWA7376 - 35 U/L1 11:55 AM [facility] AWWGvlxbxz483(H)74 - 99 mg/dL11/14/2025 11:55 AM [facility] LABComment: The [place] Diabetes Association (ADA) provides guidance for cutoff [...] Standards of Medical Care in Diabetes 2016, [place] [employer] Association. Diabetes Care. 2016.39(Suppl 1). BUN32(H)7 - 21 mg/dL11/14/2025 11:55 AM [facility] Creatinine1.11(H)0.58 - 0.96 mg/dL11/14/2025 11:55 AM [facility] OOOXlbykq828233 - 144 mmol/L1 11:55 AM [facility] LABPotassium4.73.7 - 5.1 mmol/L1 11:55 AM EST [facility] DPIWgwfxxwh43117 - 107 mmol/L1 11:55 AM [facility] OCWVX16113 - 30 mmol/L1 11:55 AM [facility] LABAnion Jzr807 - 15 mmol/L1 11:55 AM [facility] LABEstimated Glomerular Filtration Rate52(L)>=60 mL/min/1.73m 11/14/2025 11:55 AM [facility] LABComment:Estimated Glomerular Filtration Rate (eGFR) is [...] VolumeCollection TimeReceived TimeBloodBLOOD SPECIMEN / UnknownVenipuncture / Kreewhs2611/14/2025 10:35 AM EST11/14/2025 10:35 AM EST Narrative Authorizing ProviderResult TypeResult StatusMinvera Baldersa PA-CLABORATORYFinal ResultPerforming OrganizationAddressCity/State/ZIP CodePhone Number [facility] [address] [place] [phone] * (ABNORMAL) COMPLETE BLOOD COUNT AND DIFFERENTIAL (11/14/2025 10:35 AM EST) ComponentValueRef RangeTest MethodAnalysis TimePerformed AtPathologist SignatureWBC7.773.70 - 11.00 k/uL11/14/2025 10:40 AM [facility] LABRBC4.153.90 - 5.20 m/uL11/14/2025 10:40 AM [facility] CEPVagoxmkiwl06.411.5 - 15.5 g/dL11/14/2025 10:40 AM [facility] JDPMpoxijpfup53.036.0 - 46.0 %11/14/2025 10:40 AM [facility] QOHFYJ78.280.0 - 100.0 fL 11/14/2025 10:40 AM [facility] ZXIBEG13.926.0 - 34.0 pg11/14/2025 10:40 AM [facility] BNXMXOY63.530.5 - 36.0 g/dL11/14/2025 10:40 AM [facility] LABRDW-CV 16.1(H)11.5 - 15.0 %11/14/2025 10:40 AM [facility] LABPlatelet Wpvhl540063 - 400 k/uL11/14/2025 10:40 AM [facility] LABMPV9.49.0 - 12.7 fL11/14/2025 10:40 AM [facility] LABNeutrophils %69.1%11/14/2025 10:40 AM [facility] LABAbs Neut5.371.45 - 7.50 k/uL11/14/2025 10:40 AM [facility] LABLymphocytes %22.8%11/14/2025 10:40 AM [facility] LABAbs Lymph1.771.00 - 4.00 k/uL11/14/2025 10:40 AM EST [facility] LABMonocytes %5.3%11/14/2025 10:40 AM [facility] LABAbs Mono0.41<0.87 k/uL11/14/2025 10:40 AM [facility] LABEosinophils %1.9%11/14/2025 10:40 AM [facility] LABAbs Eosin0.15<0.46 k/uL11/14/2025 10:40 AM [facility] LABBasophils %0.4%11/14/2025 10:40 AM [facility] LABAbs Baso0.03<0.11 k/uL 11/14/2025 10:40 AM [facility] LABImmature Granulocytes %0.5%11/14/2025 10:40 AM [facility] LAB Abs Immature Gran0.04<0.10 k/uL11/14/2025 10:40 AM [facility] LABNRBC0.0/100 WBC11/14/2025 10:40 AM [facility] LABAbsolute nRBC<0.01<0.01 k/uL11/14/2025 10:40 AM [facility] LABDiff ZvboWieh29/30/2025 10:40 AM [facility] LABSpecimen (Source)Anatomical Location / Laterality Collection Method / VolumeCollection TimeReceived TimeBloodBLOOD SPECIMEN / UnknownVenipuncture / Pkwofyo1511/14/2025 10:35 AM EST11/14/2025 10:35 AM EST Narrative Authorizing ProviderResult TypeResult StatusMinvera HUDDLESTON-CLABORATORYFinal ResultPerforming OrganizationAddressCity/State/ZIP CodePhone Number [facility] [address] [place] [address] from Last 3 Months Insurance Care Teams Team MemberRelationshipSpecialtyStart DateEnd Date Nisa Shepherd COLOR MAKING SUPERVISOR [facility]ONDA [facility] [place] [address] PCP - GeneralFamily Wsbovxnn51/7/22
--- OUTSIDE RECORDS SUMMARY | 2025-11-15 13:29 | XMS_ITS | Patient Health Record ---
Author Organization [facility] Address [address] [place] [address] Care Team Providers Care Train Clerk Name Role Phone JwhomerCandelario Primary Care Provider Unavailabl e Reason For Referral No Information Plan Of Treatment No Information Insurance Providers Payer Name Payer Address Payer Phone Subscriber Number Group Number Insured Name Patient Relationship to Insured Coverage Start Date Coverage End Date [facility] [address] [place] [address] [id number] [id number] CHARLY MEJIA Self - patient is the insured
--- NOTE | 2025-11-15 14:07 | PM.CN ---
Consult Note: HPI Data of Consult Patient: known to practice within the last 3 years Requesting Physician: Janelle Day NP Primary Care Provider: VINAY MATTA Consult Narrative Reason for consult: f/u Narrative: 74yof who presents for evaluation. longstanding history of low back pain and RLE pain. lumbar xr reviewed, significant for multilevel spondylosis and sij degeneration. continues in a series of provider directed home exercises >6 weeks, without lasting benefit. uses gabapentin. denies adverse med side effects. recent MRI consistent with multilevel ddd, stenosis, and spondylosis. Pain today 3/10 increasing at times to 5/10. notes increased pain with standing, walking, activity, pushing, pulling. denies falls/injury since last visit. notes at least 50% improvement in pain and functional ability post right L5/S1 S1/S2 TFESI. continues to endorse moderate back pain with standing and activity. pt would like to discuss right shoulder pain/oa, interested in injection. cc:: CC: Janelle Day NP Review of Systems ROS Musculoskeletal Reports: back pain, extremity pain and joint pain PFSH [facility] Medical History (Updated 11/15/25 @ 14:08 by Janelle Day NP) Anemia ?D64.9 - Anemia, unspecified (ICD-10) Hearing deficit ?H91.90 - Unspecified hearing loss, unspecified ear (ICD-10) Carpal tunnel syndrome ?G56.00 - Carpal tunnel syndrome, unspecified upper limb (ICD-10) Acid reflux ?K21.9 - Gastro-esophageal reflux disease without esophagitis (ICD-10) Diabetes ?E11.9 - Type 2 diabetes mellitus without complications (ICD-10) Kidney stone ?N20.0 - Calculus of kidney (ICD-10) COLTEN on CPAP ?G47.33 - Obstructive sleep apnea (adult) (pediatric) (ICD-10) Sleep apnea ?G47.30 - Sleep apnea, unspecified (ICD-10) High cholesterol ?E78.00 - Pure hypercholesterolemia, unspecified (ICD-10) Palpitations ?R00.2 - Palpitations (ICD-10) HTN (hypertension) ?I10 - Essential (primary) hypertension (ICD-10) Surgical History History of eye surgery ?Z98.890 - Other specified postprocedural states (ICD-10) History of carpal tunnel release ?Z98.890 - Other specified postprocedural states (ICD-10) History of hysterectomy ?Z90.710 - Acquired absence of both cervix and uterus (ICD-10) Hx of cholecystectomy ?Z90.49 - Acquired absence of other specified parts of digestive tract (ICD-10) Social History Smoking status: Never smoker Meds Home Medications and Allergies Home Medications ?Medication ?Instructions ?Recorded ?Confirmed ?Type allopurinol 300 mg tablet 300 mg PO DAILY 01/21/24 10/09/25 History atenolol 50 mg tablet 50 mg PO Q24H 01/21/24 10/09/25 History atorvastatin 20 mg tablet 20 mg PO DAILY 01/21/24 10/09/25 History gabapentin 300 mg capsule 300 mg PO TID 01/21/24 10/09/25 History glimepiride 2 mg tablet 2 mg PO BID 01/21/24 10/09/25 History lisinopril 20 1 tab PO DAILY 01/21/24 10/09/25 History mg-hydrochlorothiazide 12.5 mg tablet magnesium oxide 400 mg (241.3 mg 400 mg PO DAILY 01/21/24 10/09/25 History magnesium) tablet ropinirole 2 mg tablet 2 mg PO DAILY 01/21/24 10/09/25 History sitagliptin phosphate 50 mg tablet 50 mg PO DAILY 01/21/24 10/09/25 History (Januvia) ascorbic acid (vitamin C) 500 mg 500 mg PO DAILY 04/07/24 10/09/25 History chewable tablet (Acerola C) aspirin 81 mg tablet,delayed 81 mg PO DAILY 04/07/24 10/09/25 History release (Adult Low Dose Aspirin) cholecalciferol (vitamin D3) 25 1,000 unit PO DAILY 04/07/24 10/09/25 History mcg (1,000 unit) chewable tablet (VitaJoy Daily D) mecobalamin (vitamin B12) 1,000 1,000 mcg PO DAILY 04/07/24 10/09/25 History mcg chewable tablet omeprazole 20 mg capsule,delayed 20 mg PO DAILY 01/10/25 10/09/25 History release pioglitazone 15 mg tablet 15 mg PO BID 01/10/25 10/09/25 History resmetirom 80 mg tablet (Rezdiffra) 80 mg PO DAILY 01/10/25 10/09/25 History baclofen 10 mg tablet 10 mg PO Q12H 02/15/25 10/09/25 History loratadine 10 mg tablet (Claritin) 10 mg PO DAILY 02/20/25 10/09/25 History Allergies Allergy/AdvReac Type Severity Reaction Status Date / Time codeine AdvReac Intermediate gi upset Verified 10/09/25 09:09 Exam Constitutional Documenting provider has reviewed patient's vital signs: yes Common normals: no apparent distress, oriented x3 and alert General appearance: cooperative HENMT Common normals: normocephalic, hearing grossly normal bilaterally and moist oral mucous membranes Head and scalp: normocephalic Eye Common normals: PERRL Pupil: PERRL Neck & C-Spine Common normals: full ROM General: normal visual inspection Chest Common normals: inspection of chest normal Respiratory Common normals: normal respiratory effort, no retractions and no use of accessory muscles Back & Pelvis Lumbar spine/lower back: ROM limited and straight leg raise negative bilaterally; no pain with ROM, no lumbar spinal tenderness and no paraspinal muscle tenderness Other: increased low back pain with standing walking. improves with sitting and forward flexion negative facet loading, no axial facet pain Extremity Right upper extremity: shoulder joint Other: moderate pain over right AC joint, positive posterior liftoff, apleys scratch, increased pain with crossbody adduction Neuro Common normals: oriented x3 Sensorium/orientation: alert Psych Common normals: mental status grossly normal, thought process normal, cooperative, affect normal, speech normal and activity/motor behavior normal Speech: normal speech Thought process: normal thought process Results Additional Findings Additional findings: If on a controlled substance or opioids, I have checked an [place]AR[place] report on this patient and there are no aberrancies noted in the prescribing history.??If on a controlled substance or opioid a drug screen was completed and reviewed within the last year, and if there has not been a drug screen completed we ordered one today to monitor higher risk, state monitored pain medication use. As part of providing excellent, safe, comprehensive care, the following was completed at our patient's visit: 1. A medication reconciliation and review to ensure accurate knowledge of current/active medications, including asking our patients to inform us about any fbwn-xdi-hibscil medications or herbal remedies/nutritional supplements/alternative remedies. 2. A review to specifically ensure our patients have had annual screening for screening for depression, screening for tobacco use, and screening for unhealthy alcohol use. For concerning screenings had a discussion with the patient, provided patient education, and recommended follow-up with primary care provider when appropriate. If patient noted with a risk of falling, they received education on strength, gait, and balance training to prevent future risk of falling. Portions of this note may have been carried over from the previous visit and updated as appropriate. Please note this office utilizes paper charting in addition to the electronic medical record. A list of current medications, vitals, and PMH is available there as the clinical staff outside of myself do not have access to [facility] charting during the clinic day operations. As part of providing quality comprehensive care the current medications, vitals, and PMH were reviewed in the paper chart. Assessment and Plan Assessment and Plan (1) Lumbosacral radiculopathy: (2) Lumbar stenosis with neurogenic claudication: (3) Right shoulder pain: (4) Osteoarthritis of right shoulder: Plan The patient has had over 3 months of moderate to severe low back and RLE pain with functional impairment and inadequate response to conservative care including NSAIDS (unless there are contraindication such as concurrent blood thinners), multiple oral or topical pain medications, and home exercise program/physical therapy.? Patient has completed >6 weeks of guided home exercise program and/or formal physical therapy program without relief of their symptoms.? I have reviewed the imaging of the lumbar spine and no red flags were identified.? The imaging reveals radiographic findings consistent with lumbar radiculopathy, lumbar stenosis with NC, lumbar ddd The Oswestry Disability Index was completed, and the patient scored a 33%.? right L5-S1 S1-2 TFESI providing moderate ongoing relief. continues to endorse moderate back pain with activity secondary to lumbar stenosis with NC. update lumbar MRI without contrast to further assess. will refer to Dr Jimenez for NS consultation prior to SCS trial/implant continue HEP as tolerated cannot take NSAIDs with CKD proceed with right shoulder injection for chronic pain/oa, will review xray of right shoulder from pcp. pt does have mild localized swelling to right wrist, recommended f/u with PCP and she can utilize diclofenac gel 3-4 times daily as needed f/u after shoulder injection
== END 2025-11-15 13:27 | disposition home or self-care (01) ==
LOC: PM 13:26
PROVIDERS: PCP Family Medicine; Visit Provider Nurse Practitioner
DX: M54.16 Radiculopathy, lumbar region (principal); M48.062 Spinal stenosis, lumbar region with neurogenic claudication; M25.511 Pain in right shoulder; M19.011 Primary osteoarthritis, right shoulder
CPT/HCPCS: G0463